=== PATIENT | female | born 1985 | race Caucasian/White ===

== ENCOUNTER 2022-07-24 15:06 | Outpatient (CLI) | payer MEDICAID, SELFPAY ==
--- OUTSIDE RECORDS SUMMARY | 2022-07-24 15:09 | XMS_ITS | Encounter Summary ---
:1985 Author Organization [employer] Address [address] [place] [address] Care Team Providers Name Role Phone Unassigned, Provider Primary Care Provider Unavailable Reason for Visit Reason Comments APPOINTMENT REQUEST to review medication refill and establish with new provider. Encounter Details Date Type Department Care Team Description 08/11/2019 Telephone [facility] Radha Kruger, APPOINTMENT REQUEST (to [facility] vault teller medication [address] [facility] refill and establish [address] with new provider. ) [place] [address] Social History Tobacco Use Types Packs/Day Years Used Date Smoking Tobacco: Never Smokeless Tobacco: Never Alcohol Use Standard Drinks/Week Comments Not Currently 0 (1 standard drink = 0.6 oz pure alcoho l) rare Alcohol Habits Answer Date Recorded How often do you have a drink containing alcohol? Not asked How many drinks containing alcohol do you have on a typical Not asked day when you are drinking? How often do you have six or more drinks on one occasion? No t asked Comment: rare 11/28/2018 Sex Assigned at Date Recorded Not on file documented as of this encounter Nursing Notes Radha Kruger RN - 08/11/2019 11:50 AM CDT Noted pt no showed for last scheduled appt with both ANASTACIO and RD. Attempted to contact Maria Alejandra at number provided, no answer. LVM requesting she reschedule to establish care with new provider now that Dr. Hauser is no longer at our clinic. Provided Maria Alejandra with returncontact information for questions and to schedule. Radha Kruger RN 11:50 AM 08/11/2019 documented in this encounter Plan of Treatment Not on filedocumented as of this encounter Visit Diagnoses Not on filedocumented in this encounter Care Teams Deaf Teacher Relationship Specialty Start Date End Date Unassigned, Provider PCP - General 08/08/00 [address] [place] [address] documented as of this encounter
--- OUTSIDE RECORDS SUMMARY | 2022-07-24 15:09 | XMS_ITS | Encounter Summary ---
:1985 Author Organization [employer] Address [address] [place] [address] Care Team Providers Name Role Phone Unassigned, Provider Primary Care Provider Unavailable Reason for Referral (Routine) - Closed Specialty Diagnoses / Procedures Referred By Contact Refer red To Contact Diagnoses Bariatric surgery status Abdominal pain, unspecified abdominal location Deisy Hauser MBBS Procedures EGD [address] [place] [address] Referral ID Status Reason Start Date Expiration Date Visits Requ ested Visits Authorized [id number] Closed 05/27/2019 08/25/2020 1 1 Reason for Visit Reason Comments Sleeve Surg Followup Encounter Details Date Type Department Care Team Description 05/27/2019 Office Visit [facility] Deisy Hauser Ba riatric surgery status (Primary Dx); [facility] HAILEE Abdominal pain, unspecified abdominal lo cation; [address] [facility] [address] Depression, major, recurrent, moderate ( HRC) [address] [place] [address] [place], [place] [phone] (Work) [phone] Social History Tobacco Use Types Packs/Day Years [...] on file documented as of this encounter Last Filed Vital Signs Vital Sign Reading Time Taken Comments Blood Pressure 113/67 05/27/2019 8:38 AM CDT Pulse 75 05/27/2019 8:38 AM CDT Temperature - - Respiratory Rate - - Oxygen Saturation - - Inhaled Oxygen Concentration - - Weight 77.4 kg (170 lb 9.6 oz) 05/27/2019 8:38 AM CDT Height 165.1 cm (5' 5) 05/27/2019 8:38 AM CDT Body Mass Index 28.39 05/27/2019 8:38 AM CDT documented in this encounter Patient Instructions Patient InstructionsDeisy Hauser MBBS - 05/27/2019 9:20 AM CDT Learning About the Low FODMAP Diet for Irritable Bowel Syndrome (IBS) What is the low-FODMAP diet? A low-FODMAP diet is a way to find out what foods give you digestion problems. You stop eating certain high-FODMAP foods for about 2 months. Then you add them back to see how your body reacts. This is called a challenge diet. A dietitian or doctor can help you follow this diet. FODMAPs are carbohydrates. They are in many types of foods. FODMAP stands for: ?? Fermentable. ?? Oligosaccharides. ?? Disaccharides. ?? Monosaccharides. ?? And polyols. If you have digestive problems, some of these foods can make your symptoms worse. When you are on this diet, you can still eat certain fruits and vegetables. You can also eat certain grains, meats, fish, and lactose-free milks. What is it used for? If you have irritable bowel syndrome (IBS), you can ease your symptoms by not eating some types of foods. Some people also use this diet for inflammatory bowel disease (IBD) or some food intolerances. High-FODMAP foods can be hard to digest. They pull more fluid into your intestines. They are also easily fermented. This can lead to bloating, belly pain, gas, and diarrhea. The low-FODMAP diet can help you figure out what foods to avoid. And it can help you find foods thatare easier to digest. This diet can help with symptoms of some digestive diseases. But it's not a cure. You will still need to manage your condition. How does it work? You will work with a doctor or dietitian when you start the diet. At first, you won't eat any high-FODMAP foods for a few weeks. Go to [email or web address].YelloYello to learn more about this diet. You'll also find links to an corey for your phone or other device. You'll find low-FODMAP cookbooks there too. After 6 to 8 weeks, you will start to try high-FODMAP foods again. You will add those foods back to your diet, one group at a time. Your doctor or dietitian will probably have you wait a few days before you add each new group of those foods. Keep a food diary. You can write down the foods you try and note how they make you feel. After a few weeks, you may have a better idea of what foods you should avoid and what foods make youfeel your best. What are the risks? There is some risk of not getting all of the vitamins and nutrients you need on the low-FODMAP diet.These include: ?? Folate. ?? Thiamin. ?? Vitamin B6. ?? Calcium. ?? Vitamin D. Your dietitian or doctor can help you find other sources of these if needed. This diet may limit your fiber intake. Try to plan your meals to include other sources of fiber. What foods are on the low-FODMAP diet? Here is a guide to foods that you can eat, plus the foods that you should avoid, when you are on thelow-FODMAP diet. Grains Okay to eat: Foods made from grains like arrowroot, buckwheat, corn, millet, and oats. You can also eat potato, quinoa, rice, sorghum, tapioca, and teff. Cereals, pasta, breads, corn tortillas and baked goods made from these grains are also okay. (These grains may be labeled gluten-free.) Avoid: Grains like wheat, barley, and rye. Avoid ingredients such as bulgur, couscous, durum, and semolina. And avoid cereals, breads, and pastas made from these grains. Avoid chickpea, lentil, and peaflour. Proteins Okay to eat: Most meat, fish, and eggs without high-FODMAP sauces. You can have small amounts of almonds or hazelnuts (10 nuts). Macadamia nuts, peanuts, pecans, pine nuts, and walnuts are also okay. You can also eat olivia and pumpkin seeds, tofu, and tempeh. Avoid: Beans, chickpeas, lentils, and soybeans. Avoid pistachio and cashew nuts. And some sausages may have high-FODMAP ingredients. Dairy Okay to eat: Lactose-free dairy milks. Rice milk and almond milk are okay. So are lactose-free yogurts, kefirs, ice creams, and sorbet from low-FODMAP fruits and sweeteners. (These are often labeled lactose-free.) You can have small amounts (2 Tbsp) of cottage, cream, or ricotta cheese. Hard cheeseslike cheddar, Shahab, Parmesan, and Swedish are okay. So are small amounts (1 oz) of aged or ripened cheeses like Brie, blue, and feta. Avoid: Milk, including cow, goat, and sheep. Avoid condensed or evaporated milk, buttermilk, custard, cream, sour cream, yogurt, and ice cream. Avoid soy milk. (Check sauces for dairy ingredients.) Vegetables Okay to eat: Bamboo shoots, alonso peppers, bok geoffrey, up to ?? cup of broccoli or cabbage (red or white), and cucumbers. Eggplant, green beans, lettuce, olives, parsnips, and potatoes are okay to eat. Soare pumpkin, rutabaga, seaweed, sprouts, Swedish chard, and spinach. You can eat scallions (green partonly) and squash (not butternut). You can eat tomatoes, turnips, watercress, yams, and zucchini. Youcan also have small amounts of artichoke hearts (from can, 1 oz), carrots, corn (?? cob), and sweet potato (?? cup). Avoid: Artichokes, asparagus, [place] sprouts, wojciech cabbage, cauliflower, and celery. And avoid garlic, leeks, mushrooms, okra, onions, scallions (white part), shallots, and peas. Fruits Okay to eat: Bananas, blueberries, cantaloupe, coconut, grapes, and honeydew. Kiwi, meek, limes, oranges, passion fruit, papaya, and pineapple are also okay. You can eat plantain, raspberries, rhubarb, star fruit, strawberries, tangelo, and tangerine. You can also have small amounts of dried banana chips (up to 10 chips), dried cranberries (1 Tbsp), and shredded coconut (up to ?? cup). Avoid: Apples, applesauce, apricots, avocados, blackberries, boysenberries, and cherries. Also avoiddates, figs, grapefruit, guava, lychee, and mangoes. Don't eat nectarines, peaches, pears, persimmon, plums, prunes, tamarillo, or watermelon. And limit most canned and dried fruits. Oils, spices, condiments, and sweeteners Okay to eat: Vegetable oils (including garlic infused), butter, ghee, lard, and margarine (no trans fat). You can have most fresh herbs like basil, chives, coriander, jia, parsley, gustabo and thyme. You can have salt, jams made from low-FODMAP fruits, mayonnaise, and mustard. Soy sauce, hot sauce(no garlic), tamari, and vinegar are also okay. Sweeteners that are okay include sugar (sucrose), powdered (confectioner's) sugar, brown sugar, glucose, and maple syrup. You can also have some artificial sweeteners like aspartame, saccharine, and stevia. Avoid: Chutneys, hummus, jellies, garlic sauces, and gravies made with onion or garlic. Avoid pickles, relish, some salad dressings and soup stocks, salsa, and tomato paste. And avoid sauces and other foods with high fructose corn syrup, honey, molasses, and agave. Avoid artificial sweeteners (isomalt, mannitol, malitol, sorbitol, and xylitol). Avoid corn syrup solids, fructose, fruit juice concentrate, and polydextrose. Other foods and drinks Okay to have: Water, soda water, tonic, soft drinks sweetened with sugar, ?? cup of low-FODMAP fruitjuice, and most teas and alcohols. You can also eat foods made with baking powder and soda, cocoa, and gelatin. Avoid: Juices from high-FODMAP fruits and vegetables. And avoid fortified anna, chamomile and fennel teas, chicory-based drinks and coffee substitutes, and bouillon cubes. Follow-up care is a soto part of your treatment and safety. Be sure to make and go to all appointments, and call your doctor if you are having problems. It's also a good idea to know your test results and keep a list of the medicines you take. Where can you learn more? 1. Go to https://[email or web address] Talents or [employer]/Machine Safety Manangementrary. 2. Enter L235 in the search box. Current as of: September 11, 2018 Content Version: 12.0 ?? 2176-2860 [employer]. Care instructions adapted under license by your healthcare professional. If you have questions about a medical condition or this instruction, always ask your healthcare professional. [employer] disclaims any warranty or liability for your use of this information. documented in this encounter Progress Notes Deisy Hauser MBBS - 05/27/2019 9:20 AM CDT Bariatric Surgery -10 months Post-Operative Follow Up DATE OF VISIT: 05/27/2019 SUBJECTIVE: This 34 y.o. year-old female presents for routine postoperative followup status post Laparoscopic Vertical Sleeve Gastrectomy. Reports concerns with abdominal pain which she describes as sensation which happens in the epigastric periumbilical within 10 minutes after eating and can persist for several hours. Patient does feel some frothing sensation in the back of her throat associated with this pain but she generally does not have much vomiting. Reports she has not seen any association with type of food. Denies any pain with drinking fluids. Does report chewing her food properly. Does feel in this pain is worse during stressful situations. Patient was evaluated at ER for abdominal pain and at thatstage patient had associated diarrhea likely viral gastroenteritis and she underwent CT scan which revealed following findings IMPRESSION: Fluid distributed throughout the entire nondistended small bowel and colon consistent with diarrhea.This represents a nonspecific enteritis. CT of the abdomen shows changes of cholecystectomy. Changes of gastric bypass surgery. CT of the pelvis shows mild dilatation of the appendix with no inflammatory changes. This is probably secondary to the fluid distributed throughout the small bowel and colon. Status post hysterectomy. Bariatric History Initial Severity: Obesity. Current Status: Obesity Date of surgery: 07/23/2018 The patient is not satisfied with weight-loss results at this Point. Patient reports she has been stable on her weight for past 2 months and feeling frustrated with stagnation. Current Exercise and Nutritional Status: The patient is eating 3 meals and 2 snacks per day. Food volume is 1 cup cup per meal. Typical eating patterns 3 meals per day with protein followed by vegatable or fruit Does report difficulty eating ground meat The patient denies any difficulty with dumping syndrome. She is uromddw26 grams of protein per day Fluid intake averages 48 to 64 oz per day. Exercise: none PMH, PSH and Family history were reviewed and updated in [facility] SOCIAL HISTORY: Social History Socioeconomic History ??? Marital status: Legally Spouse name: Not on file ??? Number of children: Not on file ??? Years of education: Not on file ??? Highest education level: Not on file Occupational History ??? Not on file Social Needs ??? Financial resource strain: Not on file ??? Food insecurity: Worry: Not on file Inability: Not on file ??? Transportation needs: Medical: Not on file Non-medical: Not on file Tobacco Use ??? Smoking status: Never Smoker ??? Smokeless tobacco: Never Used Substance and Sexual Activity ??? Alcohol use: Not Currently Comment: rare ??? Drug use: Not Currently ??? Sexual activity: Not on file Lifestyle ??? Physical activity: Days per week: Not on file Minutes per session: Not on file ??? Stress: Not on file Relationships ??? Social connections: Talks on phone: Not on file Gets together: Not on file Attends taoism service: Not on file Active member of club or organization: Not on file Attends meetings of clubs or organizations: Not on file Relationship status: Not on file ??? Intimate partner violence: Fear of current or ex partner: Not on file Emotionally abused: Not on file Physically abused: Not on file Forced sexual activity: Not on file Other Topics Concern ??? Not on file Social History Narrative ??? Not on file Patient Employment Employer: Address: City: State: Zip: Phone: Occupation: Employee?: No Family has not been supportive. Reports significant stress, patient reports she has been taking careof 4 children between the age of 14 and 2 years of age and currently their father is with patient but soon they are getting and undergoing divorce proceedings. Patient reports significant difficulty with falling and staying asleep. Does report ongoing depression for which she has been working with her primary care physician and reports that various medications have been tried without much luck and currently she is on Paxil which was an effective medication during her younger years, patient has been offered a genetic testing but due to financial reasons patient has not been able to get the test done. Patient is interested in counseling but has not been able to schedule a visit with anyone around [facility]. Does report occasional part of harming herself but denies any intent or plan. Denies any access to firearms. Does not feel at risk. Patient does report she has been talking to her mother very regularlyand feels she has good support. Does report feeling safe in her current surroundings. The patient is not working, is not having difficulty on the job. REVIEW OF SYSTEMS: She reports pain with eating and frothing She denies taste aversion, sensation of food sticking, heartburn, constipation and diarrhea OBJECTIVE: BP 113/67 (BP Location: Left Arm, BP Cuff Size: Regular) Pulse 75 Ht 5' 5 (1.651 m) Wt 170 lb9.6 oz (77.4 kg) BMI 28.39 kg/m?? BMI: Estimated body mass index is 28.39 kg/m?? as calculated from the following: Height as of this encounter: 5' 5 (1.651 m). Weight as of this encounter: 170 lb 9.6 oz (77.4 kg). Bariatric Weight History and Calculations Weight History Highest Adult Weight: 299 lb Starting Weight: 215 lb 6.4 oz Current Weight: 170 lb 9.6 oz Height (in): 64 Weight Calculations Excess Weight: 87 lb 6.4 oz Current Weight Loss: 44 lb 12.8 oz Goal Weight: 128 lb Starting BMI: 37.00846620 Percent Exess Weight Loss: 51.3658977672136 Current BMI: 29.94147036 Percent Totoal Body Weight Loss: 20.2129116434605 Last visit on 04/09/2019 was 174.7 pounds. GENERAL: Patient appears no apparent distress RESPIRATORY: clear to auscultation, no wheezes, rales or rhonchi, symmetric air entry CARDIOVASCULAR: CVS exam BP noted to be well controlled today in office, S1, S2 normal, no gallop, no murmur, chest clear, no JVD, no HSM, no edema ABDOMEN: tenderness noted Epigastric and periumbilical region no rebound tenderness noted bowel sounds normal EXTREMITIES: peripheral pulses normal, no pedal edema, no clubbing or cyanosis SKIN: Skin color, texture, turgor normal. No rashes or lesions NEUROPSYCH: depressed affect LABORATORY STUDIES: None are available at the time of appointment. ASSESSMENT: Patient is s/p Laparoscopic Vertical Sleeve Gastrectomy for Obesity. Patient is currently Overweight ICD-10-CM 1. Bariatric surgery status Z98.84 EGD 2. Abdominal pain, unspecified abdominal location R10.9 EGD busPIRone (BUSPAR) 5 MG tablet 3. Depression, major, recurrent, moderate (HRC) F33.1 PLAN: 1. Labs reviewed today; mild iron deficiency 2. Dietary recommendations: Discussed at length appropriate diet after Bariatric surgery, continuing to emphasize 3 meals per day with protein at every meal, followed by a good fruit and/or vegetable choice. Discussed the need to continue to watch carbohydrate intake especially avoiding high glycemic index carbohydrates. Patient is, however, encouraged to place more emphasis on getting adequate protein throughout the day and to avoid snacking in order to promote further weight loss. 3. The patient is advised to increase exercise to a goal of at least 30 minutes 5 times a week. 4. The patient is advised to continue taking supplements. 5. Return to the clinic in 2 months, sooner p.r.n. problems or concerns. Patient is especially encouraged to return to the clinic ifShe is failing to lose further weight. 6. Dietitian appointment p.r.n. 7. Reviewed with patient various etiologies of abdominal pain cannot rule out irritable bowel syndrome, gastritis/esophagitis. At this stage patient was advised to schedule for EGD. We will also try BuSpar 5 mg twice daily for 1 week and if patient is tolerating well patient was advised to increase itto 10 mg twice daily along with trying FODMAPs diet. Information provided. 8. Also discussed with patient scheduling with counselor, patient was offered a [employer] services which she declined as she lives in [facility] and would like to schedule a visit in the nearby area. Patient will contact her PCP for further recommendations. Patient does have crisis number availablein case of emergency. Total Time: 35 min; Consultation Time: 20 min. Post surgical lifestyle interventions, physiological changes were discussed as above. HAILEE Hastings documented in this encounter Plan of Treatment Scheduled Orders Name Type Priority Associated Diagnoses Order S chedule EGD GI Routine Bariatric surger y status 1 Occurrences starting 05/27/2019 Abdominal pain, unspecified abdominal location documented as of this encounter Visit Diagnoses Diagnosis Bariatric surgery status - Primary Abdominal pain, unspecified abdominal lo cation Depression, major, recurrent, moderate ( HRC) Major depressive disorder, recurrent epi sode, moderate documented in this encounter Care Teams Back Tacker Relationship Specialty Start Date End Date Unassigned, Provider PCP - General 08/08/[address] [place] [id number] documented as of this encounter
--- OUTSIDE RECORDS SUMMARY | 2022-07-24 15:09 | XMS_ITS | Clinical Summary ---
:1985 Author Organization [employer] (now [employer]) Address [address] [place] [address] Care Team Providers Name Role Phone Unassigned, Provider Primary Care Provider Unavailable Source Comments You are receiving this document as you are listed as the primary care provider,follow-up provider, or the patient has been referred to you for consultation.This is in compliance with the Medicare and Medicaid EHR Incentive Program,which states Providers who transition their patient to another setting of careor provider of care or refers their patient to another provider of care shouldprovide summarycare record for each transition of care or referral. [employer] (now [facility]) Allergies No known active allergies Medications Medication Sig Dispensed Refills Start Date End Date Status multivitamin with Take 1 Tablet by 0 Active minerals mouth daily. (CERTAVITE,MYADEC) tablet vitamin B-12 (AKA: Take 1,000 mcg by 0 Active CYANOCOBALAMIN) 1000 mouth once a MCG tablet week. Sublingual tablet weekly calcium Take 2 Tablets by 0 Ac tive citrate-vitamin D mouth two times a (CALCITRATE PLUS D) day. 315-200 MG-UNIT tablet cholecalciferol Take 2,000 Units 0 Active (VITAMIND3) 2000 units by mouth daily. tablet venlafaxine (EFFEXOR) Take 75 mg by 0 Active 75 MG tablet mouth two times a day. Biotin 1000 MCG CHEW Take 1 Tablet by 0 Active mouth daily. ferrous sulfate 325 Take 1 Tablet by 0 01/10/2019 Active (65 Fe) MG tablet mouth daily with breakfast. PARoxetine (PAXIL) 40 Take 40 mg by 0 Active MG tablet mouth daily. omeprazole (PRILOSEC) Take 1 Capsule by 90 Capsule 0 9 Active 20 MG capsule mouth daily for 90 days. Take 1 hour before a meal. Additional Information Patient not taking. Reported on 05/27/2019 busPIRone (BUSPAR) 5 MG 1 tab twice daily 90 Tablet 0 05/27/20 19 Active tabletIndications: Abdominal for 7 days and then pain, unspecified abdominal 2 tabs twice daily location Family History Medical History Relation Name Comments Obesity Mother Relation Name Status Comments Mother Alive Social History Tobacco Use Types Packs/Day Years [...] Assigned at Date Recorded Not on file Last Filed Vital Signs Vital Sign Reading Time Taken Comments Blood Pressure 113/67 05/27/2019 8:38 AM CDT Pulse 75 05/27/2019 8:38 AM CDT Temperature 28.9 ??C (84 ??F) 04/09/2019 10:53 AM CDT Respiratory Rate - - Oxygen Saturation - - Inhaled Oxygen Concentration - - Weight 77.4 kg (170 lb 9.6 oz) 05/27/2019 8:38 AM CDT Height 165.1 cm (5' 5) 05/27/2019 8:38 AM CDT Body Mass Index 28.39 05/27/2019 8:38 AM CDT Plan of Treatment Health Maintenance Due Date Last Done Comments Cervical Cancer Screening 1985 Due Hep C Screening (Preventive 1985 Services) HepB (1) 1985 COVID-19 Vaccine (#1) 1985 HIV Screening (Preventive 2002 Services) Adult Preventive Visit 2004 Influenza (#1) 2022 07/17/2017, 07/17/2017, 08/24/2016, Additional history exists DTaP/Tdap/Td (5 - Tdap) 02/10/2028 02/09/2018, 02/26/2013, 01/17/2009, Additional history exists Zoster/Shingles (1 of 2) 2036 HPV Vaccine Aged Out No longer eligib le based on patient 's age to complete this topic HepA Aged Out No longer eligib le based on patient 's age to complete this topic Hib Aged Out No longer eligib le based on patient 's age to complete this topic IPV (Polio) Aged Out No longer eligib le based on patient 's age to complete this topic MCV4 Aged Out No longer eligib le based on patient 's age to complete this topic Pneumococcal Aged Out No longer eligib le based on patient 's age to complete this topic Care Teams Automatic Riveting Machine Operator Relationship Specialty Start Date End Date Unassigned, Provider PCP - General 08/08/[address] [place] [id number]
--- OUTSIDE RECORDS SUMMARY | 2022-07-24 15:10 | XMS_ITS | Encounter Summary ---
:1985 Author Organization [employer] Address [address] [place] [address] Care Team Providers Name Role Phone Unassigned, Provider Primary Care Provider Unavailable Reason for Visit Reason Comments Nutrition Counseling Encounter Details Date Type Department Care Team Description 04/09/2019 Nutrition [facility] Bariat[facility] Surgery Roberta Sanchez, Morbid obesity with [facility] RDN, DAMON BMI of 40.0-44.9, [address] [facility]. [address] [facility] ([facility]) [address] [place] [id number] (Wo rk) Social History Tobacco Use Types Packs/Day Years [...] on file documented as of this encounter Progress Notes Roberta Sanchez, RD - 04/09/2019 9:30 AM CDT [facility] [address] [facility] (1BO[facility]) [facility] Department Medical Nutrition Therapy: Bariatric Post-Op ASSESSMENT: Referring Provider: Evelia Temple PA-C BMI: Estimated body mass index is 34.04 kg/m?? as calculated from the following: Height as of 01/22/19: 5' 4 (162.6 cm). Weight as of 01/22/19: 198 lb 4.8 oz (75935 g). Follow-up after sleeve gastrectomy surgery. [place] Date of Surgery: July 23, 2018. 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 Reports issues with food tolerances - taste, etc. Reportspain with eating, can lead to frothing- carbs, beef, membranes and other food depending. Pt does vomit on occasion related to symptoms. Reports 'can't do' anymore with protein shakes - taste. Pt also reports high stress, low sleep and low support - lives with 8 other at home. Financial concerns as well - does receive assistance. Significant hair loss. Current dietary habits: Grazes: String cheese, beef jerky, little meat, no fruit/veggies Protein needs estimated at 65 grams daily. Intake does not meet estimated needs for protein. Vitamin/Minerals: Patient is taking the following vitamin and mineral supplements: multivitamin and mineral daily. B12 oral daily 325 mg ferrous sulfate daily. 2000 IU vitamin D daily. 1000 mg calcium daily. Hair skin nails. Exercise: Patient is not engaging in physical activity. DIAGNOSIS: Nutrition Diagnosis: Inadequate Protein intake (NI 5.7.1) related to food intolerances as evidenced by current intake. We will continue to treat the following obesity-associated medical conditions and conditions exacerbated by or contributing to weight gain by aggressive management of weight INTERVENTION: Medical Nutrition Therapy provided on post bariatric surgery nutrition and activity behaviors. MONITORING AND EVALUATION: Patient goals: Include fruits and vegetables with meals -soft, moist as tolerated - start with bites. Increase variety of protein sources - reviewed as able. Add protein supplement: Use milk daily - 2 cups. Discussed with PA-c regarding symptoms, await plans/results as current nutrition impacted by symptoms. Also high stress, decreased moood etc. . Consider therapist Follow up with dietitian in ~2 month(s). Time: 30 minutes Thank you for this referral documented in this encounter Plan of Treatment Not on filedocumented as of this encounter Visit Diagnoses Diagnosis Morbid obesity with BMI of 40.0-44.9, ad ult (HRC) documented in this encounter Care Teams Special Education Science Teacher Relationship Specialty Start Date End Date Unassigned, Provider PCP - General 08/08/[address] [place] [id number] documented as of this encounter
--- OUTSIDE RECORDS SUMMARY | 2022-07-24 15:10 | XMS_ITS | Encounter Summary ---
:1985 Author Organization [facility] Address [address] [place] [address] Care Team Providers Name Role Phone Annemarie Montiel M.D. Primary Care Provider Reason for Referral Outpatient (Routine) - Closed Specialty Diagnoses / Procedures Referred By Contact Refer red To Contact Diagnoses Migraine Headache Marina Winter M.D., [facility] Procedures Botox for Chronic Migraine M.P.[facility] [address] [phone] Referral ID Status Reason Start Date Expiration Date Visits Requ ested Visits Authorized [id number] Closed 02/02/2021 02/02/2022 1 1 Outpatient (Routine) - Closed Specialty Diagnoses / Procedures Referred By Contact Refer red To Contact Diagnoses Migraine Headache Marina Winter M.D., [facility] Procedures Botox for chronic migraine [facility] [address] [phone] Referral ID Status Reason Start Date Expiration Date Visits Requ ested Visits Authorized [id number] Closed 02/02/2021 02/02/2022 1 1 Reason for Visit Reason Comments Botulinum Toxin Injection Outpatient (Routine) - Closed Specialty Diagnoses / Procedures Referred By Contact Refer red To Contact Diagnoses Migraine Headache Marina Winter M.D., [facility] Procedures Botox for Chronic Migraine [facility] [address] [place] [address] Referral ID Status Reason Start Date Expiration Date Visits Requ ested Visits Authorized [id number] Closed 11/04/2020 11/04/2021 1 1 Encounter Details Date Type Department Care Team Description 02/02/2021 Procedure visit Department of Neurology Marina Winter, Migraine Headache in [facility] jeevan Jaramillo, M.P.H. [address] [facility] [address] [place] [phone] Social History Tobacco Use Types Packs/Day Years Used Date Smoking Tobacco: Never Smokeless Tobacco: Never Alcohol Use Standard Drinks/Week Comments No 0 (1 standard drink = 0.6 oz pure alcoho l) Alcohol Habits Answer Date Recorded How often do you have a drink containing alcohol? Monthly or less 07/04/2019 How many drinks containing alcohol do you have on a 3 or 4 07/04/2019 typical day when you are drinking? How often do you have six or more drinks on one Never 03/29/2020 occasion? Comment: Not asked Social Isolation Answer Date Recorded In a typical week, how many times do you talk on Once a week 07/04/2019 the phone with family, friends, or neighbors? How often do you get together with friends or Never 03/29/2020 relatives? How often do you attend voodoo or latter-day Never 07/04/2019 services? Do you belong to any clubs or organizations such as No 07/04/2019 voodoo groups, unions, fraternal or athletic groups, or school groups? How often do you attend meetings of the clubs or Never 07/04/2019 organizations you belong to? Are you now , , , , Living wi th partner 03/29/2020 never or living with a partner? Physical Activity Answer Date Recorded On average, how many days per week do you engage in moderate to 0 days 07/04/2019 strenuous exercise (like walking fast, running, jogging, dancing, swimming, biking, or other activities that cause a light or heavy sweat)? On average, how many minutes do you engage in exercise at th is 0 min 07/04/2019 level? Stress Answer Date Recorded Do you feel stress - tense, restless, nervous, or anxious, o r Very much 07/04/2019 unable to sleep at night because your mind is troubled all the time - these days? Financial Resource Strain Answer Date Recorded How hard is it for you to pay for the very basics like food, Very hard 07/04/2019 housing, medical care, and heating? Intimate Partner Violence Answer Date Recorded Within the last year, have you been afraid of your partner o r No 03/29/2020 ex-partner? Within the last year, have you been humiliated or emotionall y Yes 07/04/2019 abused in other ways by your partner or ex-partner? Within the last year, have you been kicked, hit, slapped, or No 07/04/2019 otherwise physically hurt by your partner or ex-partner? Within the last year, have you been raped or forced to have any No 07/04/2019 kind of sexual activity by your partner or ex-partner? Food Insecurity Answer Date Recorded Within the past 12 months, you worried that your food Someti mes true 03/29/2020 would run out before you got money to buy more. Within the past 12 months, the food you bought just Never tr ue 03/29/2020 didn't last and you didn't have money to get more. Transportation Needs Answer Date Recorded In the past 12 months, has lack of transportation kept you f rom No 07/04/2019 medical appointments or from getting medications? In the past 12 months, has lack of transportation kept you f rom No 07/04/2019 meetings, work, or getting things needed for daily living? Education Answer Date Recorded What is the highest level of school you have completed or 12 th grade 07/04/2019 the highest degree you have received? 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 - 02/02/2021 2:00 PM CDTAssociated Order(s): Botox for chronic migraine Post-Procedure Diagnose(s): Migraine Headache Botox for chronic migraine Date/Time: 02/02/2021 2:00 PM Performed by: Marina Winter M.D., M.P.[facility]. Authorized by: Marina Winter M.D., M.P.H. PROCEDURE DETAILS Pre-procedure pain score: 0/10 Injection of: 100 Units onabotulinumtoxinA 100 unit 50 Units onabotulinumtoxinA 50 unit Needle gauge: 30 Needle length: 0.5 in Injection site details Artistic Director / Procerus muscle(s): 5 units into the left continuous miner operator helper muscle, 5 units into the right continuous miner operator helper muscle and 5 units into the procerus muscle (15 units total). Superior Frontalis muscle(s): 5 units into the left superior frontalis muscle and 5 units into the right superior frontalis muscle (4 injection sites per muscle) (10 units total). Temporalis muscle(s): 12.5 units into the left temporalis muscle and 12.5 units into the right temporalis muscle (2 injection sites per muscle) (25 units total). Splenius Capitis muscle(s): 12.5 units into the left splenius capitis muscle and 12.5 units into theright splenius capitis muscle (2 injection sites per muscle) (25 units total). Occipitalis muscle(s): 12.5 units into the left occipitalis muscle and 12.5 units into the right occipitalis muscle (2 injection sites per muscle) (25 units total). Trapezius muscle(s): 25 units into the left trapezius muscle and 25 units into the right trapezius muscle (3 injection sites per muscle) (50 units total). Total units wasted: 0 Total units injected: 150 CONSENT Consent obtained: written UNIVERSAL PROTOCOL All relevant documentation and testing were reviewed and available. All required blood products, implants, devices and or special equipment were made available as applicable. Pre-procedure verificationwas conducted and the correct site was marked if required. A fire risk assessment was done as applicable. The procedural time-out was conducted prior to performing the procedure and confirmed in a procedural pause. PRE-PROCEDURE DETAILS Reason for injections: chronic migraine Appropriate hand hygiene, gown, cap, mask, protective eyewear, sterile gloves, skin preparation, sterile drape, and strict aseptic technique were utilized as applicable for the procedure: yes Site preparation: alcohol Clinical history: Patient was made aware that they may be responsible for any and all costs associated with injection of Botulinum Toxin Type A that is not covered by a third republican. Prior preventative medication trials: amitriptyline, propranolol and topiramate Headache frequency Headache days per month: 3 days Severe headache days per month: 1 days POST-PROCEDURE DETAILS: Procedure completed successfully: yes Complications: no apparent complications documented in this encounter Plan of Treatment Upcoming Encounters Date Type Specialty Care Team Description 08/17/2022 Procedure visit Neurology Marina Winter M.D., M[facility] [address] [phone] (Wo rk) Scheduled Orders Name Type Priority Associated Diagnoses Order S chedule Botox for Chronic Procedures Routine Migraine Headache Expec heaven: 05/04/2021, Migraine Expires: 2021 Scheduled Procedures Name Priority Associated Diagnoses Date/Time LIFT THIGH Excessive And Redundant Skin And Subcutaneous Tissue documented as of this encounter Procedures Procedure Name Priority Date/Time Associated Comments Diagnosis [place] CHEMODENERV FACIAL Routine 02/02/2021 2:00 PM Migraine Head ache Results for this TRIGEM NIDHI CDT procedure are i n the results section. documented in this encounter Results [place] CHEMODENERV FACIAL TRIGEM NIDHI (02/02/2021 2:00 PM CDT) Narrative MMODAL - 02/02/2021 2:00 PM CDT Marina Winter M.D., M.P.[facility] ? 02/02/2021 ??2:28 PM Botox for chronic migraine Date/Time: 02/02/2021 2:00 PM Performed by: Marina Winter M.D., M.P .H. Authorized by: Marina Winter M.D., M. [facility] PROCEDURE DETAILS ?? Pre-procedure pain score: 0/10 Injection of: 100 Units onabotulinumtoxi nA 100 unit 50 Units onabotulinumtoxinA 50 unit Needle gauge: 30 Needle length: 0.5 in Injection site details Artistic Director / Procerus muscle(s): 5 units into the left continuous miner operator helper muscle, 5 units into the right continuous miner operator helper muscle and 5 units into the procerus muscle ??(15 units total). Superior Frontalis muscle(s): 5 units in to the left superior frontalis muscle and 5 units into the right superi or frontalis muscle ?? (4 injection sites per muscle) (10 units total). Temporalis muscle(s): 12.5 units into th e left temporalis muscle and 12.5 units into the right temporalis muscle ? ? (2 injection sites per muscle) ?? (25 units total). Splenius Capitis muscle(s): 12.5 units i nto the left splenius capitis muscle and 12.5 units into the right spl enius capitis muscle ?? (2 injection sites per muscle) ??(25 units total). Occipitalis muscle(s): 12.5 units into t he left occipitalis muscle and 12.5 units into the right occipitalis mu scle ??(2 injection sites per muscle) ??(25 units total). Trapezius muscle(s): 25 units into the l eft trapezius muscle and 25 units into the right trapezius muscle ??(3 inj ection sites per muscle) ??(50 units total). Total units wasted: 0 Total units injected: 150 CONSENT Consent obtained: written UNIVERSAL PROTOCOL All relevant documentation and testing w ere reviewed and available. All required blood products, implants, devic es and or special equipment were made available as applicable. Pre-proced ure verification was conducted and the correct site was marked if required. A fire risk assessment was done as applicable. The procedural time-out w as conducted prior to performing the procedure and confirmed in a procedu ral pause. PRE-PROCEDURE DETAILS ?? Reason for injections: chronic migraine Appropriate hand hygiene, gown, cap, mas k, protective eyewear, sterile gloves, skin preparation, sterile drape, and strict aseptic technique were utilized as applicable for the procedure : yes Site preparation: alcohol Clinical history: Patient was made aware that they may be responsible for any and all costs associated with inject ion of Botulinum Toxin Type A that is not covered by a third republican. ?? Prior preventative medication trials: am itriptyline, propranolol and topiramate Headache frequency Headache days per month: 3 days Severe headache days per month: 1 days POST-PROCEDURE DETAILS: Procedure completed successfully: yes Complications: no apparent complications Marina Winter M.D., M.P.[facility]. NEUROLOGY ORDERABLES Performing Organization Address City/State/ZIP Code Phon e Number MMODAL MMODAL NA documented in this encounter Visit Diagnoses Diagnosis Migraine Headache documented in this encounter Administered Medications Inactive Administered Medications - up to 3 most recent administrations Medication Order MAR Action Action Date Dose Rate Site onabotulinumtoxinA injection 100 Given 02/02/2021 2:00 PM 100 Un its Units (BOTOX) CDT 100 Units, injection, One-Time Injection, Starting on Sun02/02/21 at 1400, For 1 dose onabotulinumtoxinA injection 50 Units Given 02/02/2021 2:00 PM C DT 50 Units (BOTOX COSMETIC) 50 Units, injection, One-Time Injection, Starting on Sun02/02/21 at 1400, For 1 dose documented in this encounter Additional Health Concerns Assessment Noted Time PHQ-9 Depression Total Score: 12 06/10/2020 1:20 PM CD T documented as of this encounter Care Teams Tail Board Man Relationship Specialty Start Date End Date Annemarie Montiel M.D. PCP - General 04/19/172[address] [phone] documented as of this encounter
--- OUTSIDE RECORDS SUMMARY | 2022-07-24 15:10 | XMS_ITS | Encounter Summary ---
:1985 Author Organization [employer] Address [address] [place] [address] Care Team Providers Name Role Phone Unavailable Primary Care Provider Unavailable Reason for Visit Reason Comments VOMITING, BLOOD Encounter Details Date Type Department Care Team Description 06/05/2000 Telephone Careline Altagracia Sands RN VOMITING, BLOOD [address] [facility] - [place], [place] [address] [address] [phone] [place] [address] Social History Tobacco Use Types Packs/Day Years Used Date Smoking Tobacco: Never Assessed Sex Assigned at Date Recorded Not on file documented as of this encounter Nursing Notes 06/05/2000 11:59 PM CDT CALL RECEIVED. Contact: [phone] Child vomited up a cup of bright red blood with clots at 3pm today. She was taken to the ER at [facility]. They gave her Zantac and Tyl. Was told to bring her back if she vomits blood again. Chi ld ishaving abd. pain. Color is flushed. Temp 99.7 at the hospital. Mother is very upset about being sent home from the ER without any answers to the hematemesis. Mother wants to bring child to [facility] now. She is asking about the coverage. Advised mother [facility] is a hospital-the coverage will be according to her policy. Toldher we could not give her the exact coverage of her policy. Mother will be bringing child to [facility]. - Altagracia Sands Started and completed on SunJun 05, 2000 8:58 PM documented in this encounter Plan of Treatment Not on filedocumented as of this encounter Visit Diagnoses Not on filedocumented in this encounter
--- OUTSIDE RECORDS SUMMARY | 2022-07-24 15:10 | XMS_ITS | Encounter Summary ---
:1985 Author Organization [facility] Address [address] [place] [address] Care Team Providers Name Role Phone Annemarie Montiel M.D. Primary Care Provider [phone] Encounter Details Date Type Department Care Team Description 04/11/2022 Ancillary Procedure Department of Plastic and Reconstructive Surgery Social History Tobacco Use Types Packs/Day Years [...] 03/29/2020 relatives? How often do you attend anabaptist or religion Never 07/04/2019 services? 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 [address] [phone] (Wo rk) Scheduled Procedures Name Priority Associated Diagnoses Date/Time LIFT THIGH Excessive And Redundant Skin And Subcutaneous Tissue documented as of this encounter Procedures Procedure Name Priority Date/Time Associated Diagnosis Comme nts PLASTIC AND RECON Routine 04/11/2022 12:00 AM Res ults for this SURGERY IMAGE EXAM CDT procedure are in the results section. documented in this encounter Results Arms Brachioplasty-Plastic And Recon Surgery Image Exam (04/11/2022 12:00 AM CDT) Specimen (Source) Anatomical Location Collection Method / Collectio n Time Received Time / Laterality Volume Narrative IIMS - 04/19/2022 1:44 PM CDT This order has been created and auto-finalized to support the import of images acquired without order. The clini lori documentation to support these images can be found on the encounter nate t produced images. Provider Not In System IMG NON RAD IMAGING PROCEDUR ES Performing Organization Address City/State/ZIP Code Phon e Number IIMS IIMS NA documented in this encounter Visit Diagnoses Not on filedocumented in this encounter Additional Health Concerns Assessment Noted Time PHQ-9 Depression Total Score: 12 06/10/2020 1:20 PM CD T documented as of this encounter Care Teams Boiler Shop Supervisor Relationship Specialty Start Date End Date Annemarie Montiel M.D. PCP - General 04/19/[address], [place] [address] documented as of this encounter
--- OUTSIDE RECORDS SUMMARY | 2022-07-24 15:10 | XMS_ITS | Encounter Summary ---
:1985 Author Organization [facility] Address [address] [place] [address] Care Team Providers Name Role Phone Annemarie Montiel M.D. Primary Care Provider [phone] Reason for Referral Specialty Diagnoses / Procedures Referred By Contact Refer red To Contact Annemarie Montiel M.D. [facility] [address], [place] [address] Referral ID Status Reason Start Date Expiration Date Visits Requ ested Visits Authorized ENGINEER Encounter Details Date Type Department Care Team Description 10/09/2021 Orders Only [facility] PCP [facility] Daniel Montiel M.D. [address], [place] [phone] (Wo rk) Social History Tobacco Use Types [...] 03/29/2020 relatives? How often do you attend mandaeism or methodist Never 07/04/2019 services? Do you belong to any clubs or organizations such as No 07/04/2019 mandaeism groups, unions, fraternal or athletic groups, or school groups? How often do you attend meetings of the clubs or Never 07/04/2019 organizations you belong to? Are you now , , , , Living wi partner 03/29/2020 never or living with a partner? Physical Activity Answer Date Recorded On average, how many days per week do you engage in moderate to 0 days 07/04/2019 strenuous exercise (like walking fast, running, jogging, dancing, swimming, biking, or other activities that cause a light or heavy sweat)? On average, how many minutes do you engage in exercise at is 0 min 07/04/2019 level? 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 [address], [place] [phone] (Wo rk) Scheduled Procedures Name Priority Associated Diagnoses Date/Time LIFT THIGH Excessive And Redundant Skin And Subcutaneous Tissue Scheduled Referrals Name Type Priority Associated Order Schedule Diagnoses Covid immunization Outpatient Referral Routine Ex pected: office visit Booster 021 (Approximate), Expires: 10/09/2022 documented as of this encounter Visit Diagnoses Not on filedocumented in this encounter Additional Health Concerns Assessment Noted Time PHQ-9 Depression Total Score: 06/10/2020 1:20 PM CD T documented as of this encounter Care Teams Retread Technician Relationship Specialty Start Date End Date Annemarie Montiel M.D. PCP - General 04/19/[address] [address] documented as of this encounter
--- OUTSIDE RECORDS SUMMARY | 2022-07-24 15:10 | XMS_ITS | Encounter Summary ---
:1985 Author Organization [facility] Address [address] [place] [address] Care Team Providers Name Role Phone Unassigned, Provider Primary Care Provider Unavailable Reason for Visit Reason Comments Sleeve Surg Followup Encounter Details Date Type Department Care Team Description 11/28/2018 Office Visit [facility], Evelia Hypert ension, unspecified type (Primary Dx); Surgery & Weight R, PA-C Status post bariatric surgery; Center [address] [facility] Intestinal malabsorption, un specified type; [address] [facility]. [facility] [address] Personal history of endocrine disorder; [address] [place], [place] Class 2 obesity with body ma ss index (BMI) of 36.0 to 36.9 in adult, unspecified obesity type, unspecified whether [place] [id number] [phone] Social History Tobacco Use Types Packs/Day Years Used Date Smoking Tobacco: Never Smokeless Tobacco: Never Alcohol Use Standard Drinks/Week Comments Yes 0 (1 standard drink = 0.6 oz [...] Sign Reading Time Taken Comments Blood Pressure 124/77 11/28/2018 10:20 AM MANUFACTURING ASSOCIATE Pulse 71 11/28/2018 10:20 AM MANUFACTURING ASSOCIATE Temperature - - Respiratory Rate - - Oxygen Saturation - - Inhaled Oxygen Concentration - - Weight 97.7 kg (215 lb 6.4 oz) 11/28/2018 10:20 AM MANUFACTURING ASSOCIATE Height 162.6 cm (5' 4) 11/28/2018 10:20 AM MANUFACTURING ASSOCIATE Body Mass Index 36.97 11/28/2018 10:20 AM MANUFACTURING ASSOCIATE documented in this encounter Patient Instructions Patient Evelia Beltran PA-C - 11/28/2018 10:00 AM MANUFACTURING ASSOCIATE Congratulations on your many successes and keep up the hard work! Lab orders were placed today. Please have your blood drawn within the next 2 weeks. These labs will check your nutritional status, vitamin and protein levels. You will have to fast for 12 hours (water only) and avoid taking any vitamins or minerals for 24 hours. Please refer to your lab instruction located further down on this form. Continue taking your supplements as instructed. If any changes need to be made as a result of you lab results, we will let you know. If you have need a pain reliever, you may take a couple of Tylenol. Reminder not to take antiinflammatory medications such as motrin, ibuprofen, indocin, naprosyn, naproxen, or large doses of aspirin, as these can cause ulcers or bleeding in your stomach. You may notice weight loss begins to slow at this point. You may find old food habits starting to find their way back in to your daily routine. Please be aware and conscientious about continuing to make healthy and appropriate choices. Just because you can tolerate something doesn't mean it's a good choice. Remember, NO LIQUIDS 30 MINUTES BEFORE MEALS, DURING MEALS OR FOR 30 MINUTES AFTER MEALS. Thisis a life long habit to maintain. Review your 3-ring binder often. Support group: Our support group meets the and Sunday of every month from 5:30 to 6:30 pm in the lobby of our clinic. This is a support group for those who are considering or have undergone bariatric surgery. The groupexists to encourage the well-being of the whole person - body, mind and spirit. This group is a place of safety and support, where no one is judged, and each person is warmly welcomed. Please join us! Exercise: What: A group exercise program for patients who are in the weight management program and would like to start or progress an exercise regimen. When: Tuesdays and 5:45-6:30 PM Where: [facility] ground floor of the [facility], [facility]. How: Come to any class (First class is free!), and if you like it purchase a 16 class voucher and then come when you can! By signing up you are NOT committed to class, simply acknowledging interest. Class is limited to 6 participants Cost: $150 for a 16 session voucher. -For more information please contact Munira at [phone] or [email or web address] Please join us! -Check us out on Facebook and Twitter [email or web address] Lab Instructions (to be put in AVS) Please follow the following instructions prior to having your labs drawn: 1. No vitamins or supplements for 24 hours prior to the test 2. No alcohol for 24 hours prior to the test 3. No food or drink (other than water or plain, black coffee) for 12 hours prior to the test. You may call [phone] to schedule a lab appointment at the [facility] lab nearest you. Scheduled appointments are preferred; however, walk-ins are also accepted. The [place] location is open Saturdays. Exercise With Children: [employer]s Yoga - http://[email or web address]/category/watch/ Fit Factor Kids exercise Action Songs for Children - [email or web address] [email or web address]/playlist?[email or web address] Leah - [email or web address]/style/kids-[email or web address] FACTURING ASSOCIATE documented in this encounter Progress Notes Evelia Temple PA-C - 11/28/2018 10:00 AM CST Bariatric Surgery Post-Operative Follow Up DATE OF VISIT: 12/02/2018 SUBJECTIVE: This 33 y.o. year-old female with chronic medical problems including depression, anxiety presents for routine postoperative followup status post Laparoscopic Vertical Sleeve. Patient presents to the [facility] bariatric clinic to establish care after a vertical sleeve gastrectomy (using a 38 Icelandic Bougie) and hiatal hernia repair at [facility] in [facility] by Dr. Noelle Akbar on 07/23/18. Reviewed records provided by the patient. Patient's pre-operative weight was 294 lbs, BMI 50.4, post-op low weight is 215 lbs. Patient did have a CT scan of the abdomen about 2 weeks post-op due to abdominal pain and a absess vs seroma was seen to the abdominal wall, no evidence of a gastric sleeve leak. Patient states she moved back to [place] from [place] about 3 weeks after bariatric surgery. She states she has not had any post-operative follow up and she feels lost in terms of what she can eat. Patient notes she tries to focus on protein at meals, but states she does not eat enough protein. Patient would like menu ideas. Patient does not report any significantpost-op difficulties. 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 Patient is taking two chewable multivitamins, vitamin B12 and potassium. She is not taking calcium or vitamin D. Patient notes she had esophagitis seen on EGD around time of surgery, but she denied anysymptoms of heartburn. She states she took a PPI for one month after surgery, but no longer takes a PPI or any medication for heartburn or reflux. Bariatric Weight Tracking Weight History Highest Adult Weight: 299 lb Starting Weight: 215 lb 6.4 oz Height (in): 64 Weight Calculations Excess Weight: 87 lb 6.4 oz Goal Weight: 128 lb Starting BMI: [phone] Date of surgery 07/23/2018. The patient is eating 3 meals and 1 snacks per day. Food volume is 1/2 cup per meal. Does not tolerate hamburger, high carbohydrate foods Focuses on eating protein at most meals: Yes - patient does not think she eats enough protein Fluid intake averages 48-64 oz oz per day. Patient is not exercising She reports taking MVI and B12 SL weekly. She is not taking Vitamin D and Calcium supplements as prescribed. Patient denies alcohol use, carbonated beverages, and tobacco use. REVIEW OF SYSTEMS: Patient is experiencing the following symptoms/problems: Eating Until Feeling Overfull Mood Changes Pertinant Negatives Include Back Pain Binge Eating Bloating Constipation Diarrhea Emotional Eating GERD/Heartburn Increased Food Cravings Increased Hunger Joint Pain Side Effects from Weight Loss Medications Frequent Vomitting Frothing Pain with Eating Sensation of Food Sticking Taste Aversion Dumping Syndrome Low Protein Intake Low Fluid Intake Maladaptive Eating Poor Exercise Compliance Food Intolerance Satisfactory Progress PAST MEDICAL HISTORY: Past Medical History: Diagnosis Date ??? Anxiety (HRC) ??? Depression (HRC) ??? Heartburn ??? Obesity (HRC) MEDICATIONS: No current outpatient medications on file as of 11/28/2018. No current facility-administered medications on file as of 11/28/2018. ADR/ALLERGIES: Patient has no known allergies. SOCIAL HISTORY: Social History Socioeconomic History ??? Marital status: Legally Spouse name: Not on file ??? Number of children: Not on file ??? Years of education: Not on file ??? Highest education level: Not on file Social Needs ??? Financial resource strain: Not on file ??? Food insecurity - worry: Not on file ??? Food insecurity - inability: Not on file ??? Transportation needs - medical: Not on file ??? Transportation needs - non-medical: Not on file Occupational History ??? Not on file Tobacco Use ??? Smoking status: Never Smoker ??? Smokeless tobacco: Never Used Substance and Sexual Activity ??? Alcohol use: Yes Comment: rare ??? Drug use: Not on file ??? Sexual activity: Not on file Other Topics Concern ??? Not on file Social History Narrative ??? Not on file Patient Employment Employer: Address: City: State: Zip: Phone: Occupation: Employee?: No OBJECTIVE: BP 124/77 (BP Location: Right Arm, BP Cuff Size: Adult Large) Pulse 71 Ht 5' 4 (162.6 cm) Wt 215 lb 6.4 oz (28892 g) BMI 36.97 kg/m?? BMI: Estimated body mass index is 36.97 kg/m?? as calculated from the following: Height as of this encounter: 5' 4 (162.6 cm). Weight as of this encounter: 215 lb 6.4 oz (65621 g). GENERAL: Patient appears no apparent distress RESPIRATORY: Normal respiratory effort PSYCH: no overt evidence of anxiety or depression SKIN: no rashes on exposed skin NEURO: normal gait MUSCULOSKELETAL: no LE edema LABORATORY STUDIES: Recent [facility] 11/20/2018 Vitamin B12 888 Potassium 3.4 (L) Hgb 12.7 Hct 38.5 PLT 329 10/18/2018 Vitamin D 33 10/16/2018 Ferritin 116 TSH 0.8 ASSESSMENT: We will continue to treat the patient's obesity, obesity-associated medical conditions, and conditions exacerbated by or contributing to weight gain by aggressive management of weight: ICD-10-CM 1. Hypertension, unspecified type (HRC) I10 2. Status post bariatric surgery Z98.84 IRON PROFILE (IRON,TIBC,%SAT.(CALC)) FERRITIN Intact PTH Calcium PREALBUMIN 3. Intestinal malabsorption, unspecified type K90.9 IRON PROFILE (IRON,TIBC,%SAT.(CALC)) FERRITIN Intact PTH Calcium PREALBUMIN 4. Personal history of endocrine disorder Z86.39 Vitamin D 25-Hydroxy, Total 5. Class 2 obesity with body mass index (BMI) of 36.0 to 36.9 in adult, unspecified obesity type, unspecified whether serious comorbidity present (C) E66.9 Z68.36 PLAN: Routine laboratory studies needed today. Patient will work on focusing on protein - given protein supplements hand out. Suggested patient tryprotein supplement mixed with coffee. Patient also given meal ideas after bariatric surgery. Advisedpatient to use MyFitnessPal to track intake until she sees the dietitian. Schedule appointment with dietitian. Given education binder for post-op teaching and advised patient to review binder. Return to the clinic in 2 months for routine 6 month post-op visit (will not need labs, as labs wereordered at visit today), sooner p.r.n. problems or concerns. Patient is especially encouraged to return to the clinic if failing to lose further weight. Total time 60 minutes, [id number] counseling time 45 minutes, spent discussing lifestyle interventions for management of weight post-surgery as above. Evelia Temple PA-C FACTURING ASSOCIATE documented in this encounter Plan of Treatment Not on filedocumented as of this encounter Results PREALBUMIN (01/08/2019 3:24 PM MANUFACTURING ASSOCIATE) athologist Signature Prealbumin 17.5 16.0 - 38.0 PN SOFT mg/dL Specimen Anatomical Collection Method Collection Time Receive d Time (Source) Location / / Volume Laterality 01/08/2019 3:24 PM 9 6:54 MANUFACTURING ASSOCIATE PM MANUFACTURING ASSOCIATE Narrative PN SOFT - 01/08/2019 8:31 PM MANUFACTURING ASSOCIATE Performed at [facility], [address] [place] [address] CLIA number [id number] Evelia Temple PA-C LAB_1 Performing Organization Address [facility]UST Code Phon e Number PN SOFT [address] [place] [address] Calcium (01/08/2019 3:24 PM MANUFACTURING ASSOCIATE) athologist Signature Calcium 9.8 8.4 - 10.4 PN SOFT mg/dL Specimen Anatomical Collection Method Collection Time Receive d Time (Source) Location / / Volume Laterality 01/08/2019 3:24 PM 9 5:05 MANUFACTURING ASSOCIATE PM MANUFACTURING ASSOCIATE Narrative PN SOFT - 01/08/2019 5:28 PM MANUFACTURING ASSOCIATE Performed at [facility], [address] [place] [address] CLIA number [id number] Evelia Temple PA-C LAB_1 Performing Organization Address [facility] Phon e Number PN SOFT [address] [place] [address] Intact PTH (01/08/2019 3:24 PM MANUFACTURING ASSOCIATE) athologist Signature PTH 80 10 - 100 PN SOFT pg/mL Specimen Anatomical Collection Method Collection Time Receive d Time (Source) Location / / Volume Laterality 01/08/2019 3:24 PM 9 9:24 MANUFACTURING ASSOCIATE AM MANUFACTURING ASSOCIATE Narrative PN SOFT - 01/09/2019 10:19 AM MANUFACTURING ASSOCIATE Performed at [facility], [address] [place] [address] CLIA number [id number] Evelia Temple PA-C LAB_1 Performing Organization Address [facility] Phon e Number PN SOFT [address] [place] [address] Vitamin D 25-Hydroxy, Total (01/08/2019 3:24 PM MANUFACTURING ASSOCIATE) athologist Signature Vitamin D 25 Oh 22 20 - 80 PN SOFT ng/mL Comment: Deficiency = <20 Adequate ??= 20-29 Preferred = 30-50 Uncertain safety = 51-80 High = >80 Specimen Anatomical Collection Method Collection Time Receive d Time (Source) Location / / Volume Laterality 01/08/2019 3:24 PM 9 6:54 MANUFACTURING ASSOCIATE PM MANUFACTURING ASSOCIATE Narrative PN SOFT - 01/08/2019 8:11 PM MANUFACTURING ASSOCIATE Performed at [address] [address] CLIA number [id number] Evelia Temple PA-C LAB_1 Performing Organization Address [facility] Phon e Number PN SOFT [address] [place] [address] FERRITIN (01/08/2019 3:24 PM MANUFACTURING ASSOCIATE) P athologist Signature Ferritin Serum 108 9 - 204 PN SOFT ng/mL Specimen Anatomical Collection Method Collection Time Receive d Time (Source) Location / / Volume Laterality 01/08/2019 3:24 PM 9 6:54 MANUFACTURING ASSOCIATE PM MANUFACTURING ASSOCIATE Narrative PN SOFT - 01/08/2019 8:12 PM MANUFACTURING ASSOCIATE Performed at [address] [address] CLIA number [id number] Evelia Temple PA-C LAB_1 Performing Organization Address [facility] Phon e Number PN SOFT [address] [place] [address] (ABNORMAL) IRON PROFILE (IRON,TIBC,%SAT.(CALC)) (01/08/2019 3:24 PM MANUFACTURING ASSOCIATE) Patholo gist Method Time Signature Iron, Serum 49 (L) 50 - 170 PN SOFT ug/dL Transferrin 211 180 - 382 PN SOFT mg/dL Iron Binding 264 250 - 450 PN SOFT Capacity, ug/dL Calculated Iron TIBC see below PN SOFT Interpretation Comment: Low iron, normal TIBC, possible iron deficiency. Iron Saturation 19 (L) 20 - 55 % PN SOFT Specimen Anatomical Collection Method Collection Time Receive d Time (Source) Location / / Volume Laterality 01/08/2019 3:24 PM 9 6:54 MANUFACTURING ASSOCIATE PM MANUFACTURING ASSOCIATE Narrative PN SOFT - 01/08/2019 8:31 PM MANUFACTURING ASSOCIATE Performed at [address] [address] CLIA number [id number] Evelia Temple PA-C LAB_1 Performing Organization Address City/State/ZIP Code Phon e Number PN SOFT [address] [place] [address] [phone] documented in this encounter Visit Diagnoses Diagnosis Hypertension, unspecified type (HRC) - P rimary Status post bariatric surgery Bariatric surgery status Intestinal malabsorption, unspecified ty pe Personal history of endocrine disorder Personal history of other endocrine, met abolic, and immunity disorders Class 2 obesity with body mass index (BM I) of 36.0 to 36.9 in adult, unspecified obesity type, unspecified whether seriou s comorbidity present (HRC) Status post bariatric surgery Bariatric surgery status Intestinal malabsorption, unspecified ty pe Personal history of endocrine disorder Personal history of other endocrine, met abolic, and immunity disorders documented in this encounter Care Teams Line Server Relationship Specialty Start Date End Date Unassigned, Provider PCP - General 08/08/[address] [place] [address] documented as of this encounter
--- OUTSIDE RECORDS SUMMARY | 2022-07-24 15:10 | XMS_ITS | Encounter Summary ---
:1985 Author Organization [facility] Address [address] [place] [address] Care Team Providers Name Role Phone Annemarie Montiel M.D. Primary Care Provider [phone] Encounter Details Date Type Department Care Team Description 05/16/2022 Clinical Communication Department of Neurology Marina Winter, in [facility] jeevan Jaramillo, M.P.H. [address] [place] [phone] Social History Tobacco Use Types Packs/Day Years [...] 03/29/2020 relatives? How often do you attend hoahaoism or jainism Never 07/04/2019 services? 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 [address] [place], [place] [phone] (Wo rk) Scheduled Procedures Name Priority Associated Diagnoses Date/Time LIFT THIGH Excessive And Redundant Skin And Subcutaneous Tissue documented as of this encounter Visit Diagnoses Not on filedocumented in this encounter Additional Health Concerns Assessment Noted Time PHQ-9 Depression Total Score: 12 06/10/2020 1:20 PM CD T documented as of this encounter Care Teams Business Intelligence Director Relationship Specialty Start Date End Date Annemarie Montiel M.D. PCP - General 04/19/17 [address] [place] [address] documented as of this encounter
--- OUTSIDE RECORDS SUMMARY | 2022-07-24 15:10 | XMS_ITS | Encounter Summary ---
:1985 Author Organization [facility] Address [address] [place] [address] Care Team Providers Name Role Phone Annemarie Montiel M.D. Primary Care Provider [phone] Encounter Details Date Type Department Care Team Description 02/04/2021 Orders Only [facility] PCP [facility] Sa solomon Jacobs M.D. [address] [place], [place] [phone] (Wo rk) Social History Tobacco Use Types [...] 03/29/2020 relatives? How often do you attend hinduism or catholic Never 07/04/2019 services? 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 [address] [place], [place] [phone] (Wo rk) Scheduled Procedures Name Priority Associated Diagnoses Date/Time LIFT THIGH Excessive And Redundant Skin And Subcutaneous Tissue documented as of this encounter Visit Diagnoses Not on filedocumented in this encounter Additional Health Concerns Assessment Noted Time PHQ-9 Depression Total Score: 12 06/10/2020 1:20 PM CD T documented as of this encounter Care Teams Pension Agent Relationship Specialty Start Date End Date Annemarie Montiel M.D. PCP - General 04/19/[address] [place] [address] documented as of this encounter
--- OUTSIDE RECORDS SUMMARY | 2022-07-24 15:10 | XMS_ITS | Encounter Summary ---
:1985 Author Organization [facility] Address [address] [place] [address] Care Team Providers Name Role Phone Annemarie Montiel M.D. Primary Care Provider [phone] Reason for Visit Reason Comments Medical Information Encounter Details Date Type Department Care Team Description 12/09/2020 Clinical Communication Department of Marina Winter Information Neurology in [place], [place] [address] [phone] Social History Tobacco Use Types Packs/Day Years [...] 03/29/2020 relatives? How often do you attend mandaen or religion Never 07/04/2019 services? 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 - 12/09/2020 2:09 PM SENSORY SCIENTIST Patient wanting to get Botox earlier than 02/02/21. Instructed patient that Botox is every three months. If given earlier than that insurance would not cover it. Patient will wait for her scheduled appt. In January. ORY SCIENTIST Telephone Encounter - Mónica Saleh L.P.N. - 12/09/2020 1:55 PM SENSORY SCIENTIST Dec has some return appointment slots. Please call her to schedule. I do not see what you are seeing on February 02? ORY SCIENTIST Telephone Encounter - Stiven Pinto - 12/09/2020 12:32 PM CST Reason for Communication: Patient called and is having migraines and is wondering f if she can be seen sooner then january, or if she has to wait that long. Also on that appt that is made for 02/02 ther is a reschedule angel on that appt. Does that appt need to be rescheduled?, please advise. Current Can Nursing/Provider leave a detailed message: yes Did the patient refuse triage through Nurse line? (for symptom based concerns): Action Needed: Name of Medication (if relevant): ORY SCIENTIST documented in this encounter Plan of Treatment Upcoming Encounters Date Type Specialty Care Team Description 08/17/2022 Procedure visit Neurology Marina Winter M.D., M.P.H. [address] [phone] (Wo ) Scheduled Procedures Name Priority Associated Diagnoses Date/Time LIFT THIGH Excessive And Redundant Skin And Subcutaneous Tissue documented as of this encounter Visit Diagnoses Not on filedocumented in this encounter Additional Health Concerns Assessment Noted Time PHQ-9 Depression Total Score: 12 06/10/2020 1:20 PM CD T documented as of this encounter Care Teams Senior Maintenance Technician Relationship Specialty Start Date End Date Annemarie Montiel M.D. PCP - General 04/19/[address] [phone] documented as of this encounter
--- OUTSIDE RECORDS SUMMARY | 2022-07-24 15:10 | XMS_ITS | Encounter Summary ---
:1985 Author Organization [facility] Address [address] [place] [address] Care Team Providers Name Role Phone Annemarie Montiel M.D. Primary Care Provider [phone] Encounter Details Date Type Department Care [...] 03/29/2020 relatives? How often do you attend uatsdin or rastafarian Never 07/04/2019 services? 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 [address] [phone] (Wo rk) Scheduled Procedures Name Priority Associated Diagnoses Date/Time LIFT THIGH Excessive And Redundant Skin And Subcutaneous Tissue documented as of this encounter Procedures Procedure Name Priority Date/Time Associated Diagnosis Comme nts PLASTIC AND RECON Routine 04/11/2022 12:05 AM Res ults for this SURGERY IMAGE EXAM CDT procedure are in the results section. documented in this encounter Results Neck to Knees Thigh Lift-Plastic And Recon Surgery Image Exam (04/11/2022 12:05 AM CDT) Specimen (Source) Anatomical Location Collection Method / Collectio n Time Received Time / Laterality Volume Narrative IIMS - 04/19/2022 1:45 PM CDT This order has been created and auto-finalized to support the import of images acquired without order. The clini lori documentation to support these images can be found on the encounter nate t produced images. Provider Not In System IMG NON RAD IMAGING PROCEDUR ES Performing Organization Address City/State/ZIP Code Phon e Number IIMI IIMS NA documented in this encounter Visit Diagnoses Not on filedocumented in this encounter Additional Health Concerns Assessment Noted Time PHQ-9 Depression Total Score: 12 06/10/2020 1:20 PM CD T documented as of this encounter Care Teams Harbor Boat Pilot Relationship Specialty Start Date End Date Annemarie Montiel M.D. PCP - General 04/19/[address], [place] [phone] documented as of this encounter
--- OUTSIDE RECORDS SUMMARY | 2022-07-24 15:10 | XMS_ITS | Encounter Summary ---
:1985 Author Organization [facility] Address [address] [place] [address] Care Team Providers Name Role Phone Annemarie Montiel M.D. Primary Care Provider [phone] Reason for Referral Outpatient (Routine) - Authorized Specialty Diagnoses / Procedures Referred By Contact Refer red To Contact Diagnoses Migraine Headache Marina Winter M.D., [facility] Procedures Botox for chronic migraine M.P.H. [address] [place] [phone] Referral ID Status Reason Start Date Expiration Date Visits V isits Requested Authorized [id number] Authorized 08/04/2021 08/04/2022 1 1 Reason for Visit Reason Comments Botulinum Toxin Injection Outpatient (Routine) - Closed Specialty Diagnoses / Procedures Referred By Contact Refer red To Contact Diagnoses Migraine Headache Marina Winter M.D., [facility] Procedures Botox for Chronic Migraine M.P.H. [address] [place] [phone] Referral ID Status Reason Start Date Expiration Date Visits Requ ested Visits Authorized [id number] Closed 05/05/2021 05/05/2022 1 1 Encounter Details Date Type Department Care Team Description 08/04/2021 Procedure visit Department of Neurology Marina Winter, Migraine Headache in [facility] jeevan Jaramillo, M.P.H. [address] [place] [phone] Social History Tobacco Use Types Packs/Day Years [...] 03/29/2020 relatives? How often do you attend caodaism or methodist Never 07/04/2019 services? 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 - 08/04/2021 1:45 PM CDTAssociated Order(s): Botox for chronic migraine Post-Procedure Diagnose(s): Migraine Headache Botox for chronic migraine Date/Time: 08/04/2021 1:21 PM Performed by: Marina Winter M.D., M.P.H. Authorized by: Marina Winter M.D., M.P.H. PROCEDURE DETAILS Pre-procedure pain score: 0/10 Injection of: 100 Units onabotulinumtoxinA 100 unit; 50 Units onabotulinumtoxinA 100 unit Needle gauge: 30 Needle length: 0.5 in Injection site details Warm In Worker / Procerus muscle(s): 5 units into the left excel expert muscle, 5 units into the right excel expert muscle and 5 units into the procerus [...] a third republican. Prior preventative medication trials: amitriptyline and topiramate Headache frequency Headache days per month: 2 days Severe headache days per month: 1 days POST-PROCEDURE DETAILS: Procedure completed successfully: yes Complications: no apparent complications documented in this encounter Plan of Treatment Upcoming Encounters Date Type Specialty Care Team Description 08/17/2022 Procedure visit Neurology Marina Witner M.D., M.P.H. [address] [place] [phone] (Wo rk) Scheduled Procedures Name Priority Associated Diagnoses Date/Time LIFT THIGH Excessive And Redundant Skin And Subcutaneous Tissue documented as of this encounter Procedures Procedure Name Priority Date/Time Associated Comments Diagnosis CA CHEMODENERV FACIAL Routine 08/04/2021 1:21 PM Migraine Head ache Results for this TRIGEM NIDHI CDT procedure are i n the results section. documented in this encounter Results CA CHEMODENERV FACIAL TRIGEM NIDHI (08/04/2021 1:21 PM CDT) Narrative MMODAL - 08/04/2021 1:21 PM CDT Marina Winter M.D., M.P.H. ? 08/04/2021 ??1:30 PM Botox for chronic migraine Date/Time: 08/04/2021 1:21 PM Performed by: Marina Winter M.D., M.P .H. Authorized by: Marina Winter M.D., M. P.H. PROCEDURE DETAILS ?? Pre-procedure pain score: 0/10 Injection of: 100 Units onabotulinumtoxi nA 100 unit; 50 Units onabotulinumtoxinA 100 unit Needle gauge: 30 Needle length: 0.5 in Injection site details Warm In Worker / Procerus muscle(s): 5 units into the left excel expert muscle, 5 units into the right excel expert muscle and 5 units into the procerus [...] republican. ?? Prior preventative medication trials: am itriptyline and topiramate Headache frequency Headache days per month: 2 days Severe headache days per month: 1 [...] Dose Rate Site onabotulinumtoxinA injection 100 Given 08/04/2021 1:21 PM 100 Un its Units (BOTOX) CDT 100 Units, injection, One-Time Injection, Starting on Anneliese 08/04/21 at 1321, For 1 dose onabotulinumtoxinA injection 50 Units Given 08/04/2021 1:21 PM C DT 50 Units (BOTOX) 50 Units, injection, One-Time Injection, Starting on Anneliese 08/04/21 at 1321, For 1 dose documented in this encounter Additional Health Concerns Assessment Noted Time PHQ-9 Depression Total Score: 12 06/10/2020 1:20 PM CD T documented as of this encounter Care Teams Casing Inspector Relationship Specialty Start Date End Date Annemarie Montiel M.D. PCP - General 04/19/[address] [phone] documented as of this encounter
--- OUTSIDE RECORDS SUMMARY | 2022-07-24 15:10 | XMS_ITS | Encounter Summary ---
:1985 Author Organization [facility] Address [address] [place] [address] Care Team Providers Name Role Phone Annemarie Montiel M.D. Primary Care Provider [phone] Reason for Referral Outpatient (Routine) - Closed Specialty Diagnoses / Procedures Referred By Contact Refer red To Contact Diagnoses Migraine Headache Marina Winter M.D., [facility] Procedures Botox for chronic migraine MT INJECTION,ONABOTULINUMTOXINA MT CHEMODENERV FACIAL TRIGEM NIDHI M.P.H. [address] [place] [phone] Referral ID Status Reason Start Date Expiration Date Visits Requ ested Visits Authorized [id number] Closed 11/04/2020 11/04/2021 1 4 SION PLANT ENGINEER Reason for Visit Reason Comments Botulinum Toxin Injection Outpatient (Routine) - Authorized Specialty Diagnoses / Procedures Referred By Contact Refer red To Contact Diagnoses Migraine Headache Marina Winter M.D., [facility] Procedures Botox for Chronic Migraine M.P.H. [address] [place] [phone] Referral ID Status Reason Start Date Expiration Date Visits V isits Requested Authorized [id number] Authorized 10/06/2020 10/06/2022 4 4 Encounter Details Date Type Department Care Team Description 11/04/2020 Procedure visit Department of Neurology Marina Winter, Migraine Headache in [facility] jeevan Jaramillo, M.P.H. [address] [place], [place] [phone] Social History Tobacco Use Types Packs/Day Years [...] 03/29/2020 relatives? How often do you attend gnosticism or hoahaoism Never 07/04/2019 services? 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 - 11/04/2020 8:45 AM CSTAssociated Order(s): Botox for chronic migraine Post-Procedure Diagnose(s): Migraine Headache Botox for chronic migraine Date/Time: 11/04/2020 8:45 AM Performed by: Marina Winter M.D., M.P.H. Authorized by: Marina Winter M.D., M.P.H. PROCEDURE DETAILS Pre-procedure pain score: 2/10 Injection of: 100 Units onabotulinumtoxinA 100 unit 50 Units onabotulinumtoxinA (cosmetic) 50 unit Needle gauge: 30 Needle length: 0.5 in Injection site details Catalyst Operator Gasoline / Procerus muscle(s): 5 units into the left galvanizer zinc muscle, 5 units into the right galvanizer zinc muscle and 5 units into the procerus [...] that is not covered by a third alliance party. Prior preventative medication trials: amitriptyline, propranolol and topiramate Headache frequency Headache days per month: 8 days Severe headache days per month: 4 days POST-PROCEDURE DETAILS: Procedure completed successfully: yes Complications: no apparent complications SION PLANT ENGINEER documented in this encounter Plan of Treatment Upcoming Encounters Date Type Specialty Care Team Description 08/17/2022 Procedure visit Neurology Marina Winter M.D., M.P.[facility] [address] [place] [phone] (Wo rk) Scheduled Procedures Name Priority Associated Diagnoses Date/Time LIFT THIGH Excessive And Redundant Skin And Subcutaneous Tissue documented as of this encounter Procedures Procedure Name Priority Date/Time Associated Comments Diagnosis MT CHEMODENERV FACIAL Routine 11/04/2020 8:45 AM Migraine Head ache Results for this TRIGEM NIDHI DIVISION PLANT ENGINEER procedure are i n the results section. documented in this encounter Results MT CHEMODENERV FACIAL TRIGEM NIDHI (11/04/2020 8:45 AM DIVISION PLANT ENGINEER) Narrative MMODAL - 11/04/2020 8:45 AM DIVISION PLANT ENGINEER Marina Winter M.D., M.P.H. ? 11/04/2020 ??9:08 AM Botox for chronic migraine Date/Time: 11/04/2020 8:45 AM Performed by: Marina Winter M.D., M.P .H. Authorized by: Marina Winter M.D., M. P.H. PROCEDURE DETAILS ?? Pre-procedure pain score: 2/10 Injection of: 100 Units onabotulinumtoxi nA 100 unit 50 Units onabotulinumtoxinA (cosmetic) 50 unit Needle gauge: 30 Needle length: 0.5 in Injection site details Catalyst Operator Gasoline / Procerus muscle(s): 5 units into the left galvanizer zinc muscle, 5 units into the right galvanizer zinc muscle and 5 units into the procerus [...] that is not covered by a third alliance party. ?? Prior preventative medication trials: am itriptyline, propranolol and topiramate Headache frequency Headache days per month: 8 days Severe headache days per month: 4 days POST-PROCEDURE DETAILS: Procedure completed successfully: yes Complications: no apparent complications Marina Winter M.D., M.P.H. NEUROLOGY ORDERABLES Performing Organization Address City/State/ZIP Code Phon e Number MMODAL MMODAL NA documented in this encounter Visit Diagnoses Diagnosis Migraine Headache documented in this encounter Administered Medications Inactive Administered Medications - up to 3 most recent administrations Medication Order MAR Action Action Date Dose Rate Site onabotulinumtoxinA (cosmetic) Given 11/04/2020 8:45 AM 50 Units injection 50 Units (BOTOX DIVISION PLANT ENGINEER COSMETIC) 50 Units, injection, One-Time Injection, Starting on Anneliese 11/04/20 at 0845, For 1 dose onabotulinumtoxinA injection 100 Units Given 11/04/2020 8:45 AM DIVISION PLANT ENGINEER 100 Units (BOTOX) 100 Units, injection, One-Time Injection, Starting on Anneliese 11/04/20 at 0845, For 1 dose documented in this encounter Additional Health Concerns Assessment Noted Time PHQ-9 Depression Total Score: 06/10/2020 1:20 PM CD T documented as of this encounter Care Teams Bale Opener Relationship Specialty Start Date End Date Annemarie Montiel M.D. PCP - General 04/19/[address] [phone] documented as of this encounter
--- OUTSIDE RECORDS SUMMARY | 2022-07-24 15:10 | XMS_ITS | Encounter Summary ---
:1985 Author Organization [facility] Address [address] [place] [address] Care Team Providers Name Role Phone Annemarie Montiel M.D. Primary Care Provider [phone] Reason for Referral Outpatient (Routine) - Closed Specialty Diagnoses / Procedures Referred By Contact Refer red To Contact Diagnoses Migraine Headache Marina Winter M.D., [facility] Procedures Botox for Chronic Migraine M.P.H. [address] [phone] Referral ID Status Reason Start Date Expiration Date Visits Requ ested Visits Authorized [id number] Closed 11/04/2020 11/04/2021 1 1 GRAPHY TECHNICIAN Encounter Details Date Type Department Care Team Description 11/04/2020 Orders Only Department of Neurology Marina Winter, Migraine Headache in [facility] jeevan Jaramillo, M.P.H. (Primary Dx) [address] [place] [phone] Social History Tobacco Use Types Packs/Day Years [...] 03/29/2020 relatives? How often do you attend protestant or cheondoism Never 07/04/2019 services? 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 [address] [place], [place] [phone] (Wo rk) Scheduled Orders Name Type Priority Associated Diagnoses Order S chedule Botox for Chronic Procedures Routine Migraine Headache Expec heaven: 02/02/2021, Migraine Expires: 2020 Scheduled Procedures Name Priority Associated Diagnoses Date/Time LIFT THIGH Excessive And Redundant Skin And Subcutaneous Tissue documented as of this encounter Visit Diagnoses Diagnosis Migraine Headache - Primary documented in this encounter Additional Health Concerns Assessment Noted Time PHQ-9 Depression Total Score: 06/10/2020 1:20 PM CD T documented as of this encounter Care Teams Display Director Relationship Specialty Start Date End Date Annemarie Monteil M.D. PCP - General 04/19/17 [address], [place] [phone] documented as of this encounter
--- OUTSIDE RECORDS SUMMARY | 2022-07-24 15:10 | XMS_ITS | Encounter Summary ---
:1985 Author Organization [facility] Address [address] [place] [address] Care Team Providers Name Role Phone Unassigned, Provider Primary Care Provider Unavailable Encounter Details Date Type Department Care Team Description 01/08/2019 Lab Visit [facility] Status post bariatric surger y; [id number]. Intestinal malabsorption, un specified type; [place] [address] Personal history of endocrin e disorder [phone] Social History Tobacco Use Types Packs/Day Years [...] on file documented as of this encounter Plan of Treatment Not on filedocumented as of this encounter Procedures Procedure Name Priority Date/Time Associated Diagnosis Comme nts VITAMIN D Routine 01/08/2019 3:24 PM Personal history of Re sults for this 25-HYDROXY, TOTAL RADIOLOGICAL TECHNICIAN endocrine disorder proc edure are in the results section. INTACT PTH Routine 01/08/2019 3:24 PM Status post Results f or this RADIOLOGICAL TECHNICIAN bariatric surger y procedure are in Intestinal the results malabsorption, section. unspecified type PREALBUMIN Routine 01/08/2019 3:24 PM Status post Results f or this RADIOLOGICAL TECHNICIAN bariatric surger y procedure are in Intestinal the results malabsorption, section. unspecified type FERRITIN Routine 01/08/2019 3:24 PM Status post Results f or this RADIOLOGICAL TECHNICIAN bariatric surger y procedure are in Intestinal the results malabsorption, section. unspecified type IRON PROFILE Routine 01/08/2019 3:24 PM Status post Results f or this (IRON,TIBC,%SAT.(WENDI RADIOLOGICAL TECHNICIAN bariatric s urgery procedure are in C)) Intestinal the results malabsorption, section. unspecified type CALCIUM Routine 01/08/2019 3:24 PM Status post Results f or this RADIOLOGICAL TECHNICIAN bariatric surger y procedure are in Intestinal the results malabsorption, section. unspecified type documented in this encounter Results PREALBUMIN (01/08/2019 3:24 PM RADIOLOGICAL TECHNICIAN) athologist Signature Prealbumin 17.5 16.0 - 38.0 PN SOFT mg/dL Specimen Anatomical Collection Method Collection Time Receive d Time (Source) Location / / Volume Laterality 01/08/2019 3:24 PM 9 6:54 RADIOLOGICAL TECHNICIAN PM RADIOLOGICAL TECHNICIAN Narrative PN SOFT - 01/08/2019 8:31 PM RADIOLOGICAL TECHNICIAN Performed at [address] [address] CLIA number [id number] Evelia Temple PA-C LAB_1 Performing Organization Address [facility] Phon e Number PN SOFT [address] [place] [address] Calcium (01/08/2019 3:24 PM RADIOLOGICAL TECHNICIAN) athologist Signature Calcium 9.8 8.4 - 10.4 PN SOFT mg/dL Specimen Anatomical Collection Method Collection Time Receive d Time (Source) Location / / Volume Laterality 01/08/2019 3:24 PM 9 5:05 RADIOLOGICAL TECHNICIAN PM RADIOLOGICAL TECHNICIAN Narrative PN SOFT - 01/08/2019 5:28 PM RADIOLOGICAL TECHNICIAN Performed at [facility], [address] [place] [address] CLIA number [id number] Evelia Temple PA-C LAB_1 Performing Organization Address [facility] Phon e Number PN SOFT [address] [place] [address] Intact PTH (01/08/2019 3:24 PM RADIOLOGICAL TECHNICIAN) athologist Signature PTH 80 10 - 100 PN SOFT pg/mL Specimen Anatomical Collection Method Collection Time Receive d Time (Source) Location / / Volume Laterality 01/08/2019 3:24 PM 9 9:24 RADIOLOGICAL TECHNICIAN AM RADIOLOGICAL TECHNICIAN Narrative PN SOFT - 01/09/2019 10:19 AM RADIOLOGICAL TECHNICIAN Performed at [address] [address] CLIA number [id number] Evelia Poole Windy CHAVES LAB_1 Performing Organization Address [facility] Phon e Number PN SOFT [address] [place] [address] Vitamin D 25-Hydroxy, Total (01/08/2019 3:24 PM RADIOLOGICAL TECHNICIAN) athologist Signature Vitamin D 25 Oh 22 20 - 80 PN SOFT ng/mL Comment: Deficiency = <20 Adequate ??= 20-29 Preferred = 30-50 Uncertain safety = 51-80 High = >80 Specimen Anatomical Collection Method Collection Time Receive d Time (Source) Location / / Volume Laterality 01/08/2019 3:24 PM 9 6:54 RADIOLOGICAL TECHNICIAN PM RADIOLOGICAL TECHNICIAN Narrative PN SOFT - 01/08/2019 8:11 PM RADIOLOGICAL TECHNICIAN Performed at [address] [address] CLIA number [id number] Evelia Poole Windy MCCONNELLC LAB_1 Performing Organization Address [facility] Phon e Number PN SOFT [address] [place] [address] FERRITIN (01/08/2019 3:24 PM RADIOLOGICAL TECHNICIAN) athologist Signature Ferritin Serum 108 9 - 204 PN SOFT ng/mL Specimen Anatomical Collection Method Collection Time Receive d Time (Source) Location / / Volume Laterality 01/08/2019 3:24 PM 9 6:54 RADIOLOGICAL TECHNICIAN PM RADIOLOGICAL TECHNICIAN Narrative PN SOFT - 01/08/2019 8:12 PM RADIOLOGICAL TECHNICIAN Performed at [address] [address] CLIA number [id number] Evelia Poole Windy CHAVES LAB_1 Performing Organization Address [facility] Phon e Number PN SOFT [address] [place] [address] (ABNORMAL) IRON PROFILE (IRON,TIBC,%SAT.(CALC)) (01/08/2019 3:24 PM RADIOLOGICAL TECHNICIAN) [facility] Method Time Signature Iron, Serum 49 (L) [...] Volume Laterality 01/08/2019 3:24 PM 9 6:54 RADIOLOGICAL TECHNICIAN PM RADIOLOGICAL TECHNICIAN Narrative PN SOFT - 01/08/2019 8:31 PM RADIOLOGICAL TECHNICIAN Performed at [address] [address] CLIA number [id number] Evelia Temple PA-C LAB_1 Performing Organization Address City/State/ZIP Code Phon e Number SOFT [address] [place] [address] documented in this encounter Visit Diagnoses Diagnosis Status post bariatric surgery Bariatric surgery status Intestinal malabsorption, unspecified ty pe Personal history of endocrine disorder Personal history of other endocrine, met abolic, and immunity disorders documented in this encounter Care Teams Baggage Handling Supervisor Relationship Specialty Start Date End Date Unassigned, Provider PCP - General 08/08/[address] [place] [phone] documented as of this encounter
--- OUTSIDE RECORDS SUMMARY | 2022-07-24 15:10 | XMS_ITS | Encounter Summary ---
:1985 Author Organization [facility] Address [address] [place] [address] Care Team Providers Name Role Phone Annemarie Montiel M.D. Primary Care Provider [phone] Reason for Referral Outpatient (Routine) - Authorized Specialty Diagnoses / Procedures Referred By Contact Refer red To Contact Diagnoses Migraine Headache Marina Winter M.D., [facility] Procedures Botox for Chronic Migraine M.P.H. [address] [place] [phone] Referral ID Status Reason Start Date Expiration Date Visits V isits Requested Authorized [id number] Authorized 05/18/2022 05/18/2023 4 4 Reason for Visit Reason Comments Botulinum Toxin Injection Outpatient (Routine) - Authorized Specialty Diagnoses / Procedures Referred By Contact Refer red To Contact Diagnoses Migraine Headache Marina Winter M.D., [facility] Procedures Botox for Chronic Migraine [facility] [address] [place] [address] Referral ID Status Reason Start Date Expiration Date Visits V isits Requested Authorized [id number] Authorized 10/06/2020 10/06/2022 4 4 Encounter Details Date Type Department Care Team Description 05/18/2022 Procedure visit Department of Neurology Marina Winter, Migraine Headache in Pending Sale To [facility] jeevan Jaramillo, M.P.H. [address] [place] [phone] Social History Tobacco Use Types Packs/Day Years [...] 03/29/2020 relatives? How often do you attend presybeterian or anglican Never 07/04/2019 services? 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 - 05/18/2022 1:45 PM CDTAssociated Order(s): Botox for Chronic Migraine Pre-Procedure Diagnose(s): Migraine Headache Post-Procedure Diagnose(s): Migraine Headache Botox for Chronic Migraine Date/Time: 05/18/2022 1:53 PM Performed by: Marina Winter M.D., M.P.H. Authorized by: Marina Winter M.D., M.P.H. PROCEDURE DETAILS Pre-procedure pain score: 0/10 Injection of: 100 Units onabotulinumtoxinA 100 unit; 100 Units onabotulinumtoxinA 100 unit; 50 UnitsonabotulinumtoxinA 100 unit Needle gauge: 30 Needle length: 0.5 in Injection site details Hypnotherapist / Procerus muscle(s): 5 units into the left wood boatbuilder apprentice muscle, 5 units into the right wood boatbuilder apprentice muscle and 5 units into the procerus [...] units injected: 150 CONSENT Consent obtained: written PRE-PROCEDURE DETAILS Reason for injections: chronic migraine [...] third alliance party. Prior preventative medication trials: topiramate and amitriptyline Headache frequency Headache days per month: 4 days Severe headache days per month: 2 days POST-PROCEDURE DETAILS Complications: no apparent complications documented in this encounter Plan of Treatment Upcoming Encounters Date Type Specialty Care Team Description 08/17/2022 Procedure visit Neurology Marina Winter M.D., M.P.H. [address] [phone] (Wo rk) Scheduled Orders Name Type Priority Associated Diagnoses Order S chedule Botox for Chronic Procedures Routine Migraine Headache 4 Occ urrences starting Migraine 05/18/2022 unti l 05/18/2025 Scheduled Procedures Name Priority Associated Diagnoses Date/Time LIFT THIGH Excessive And Redundant Skin And Subcutaneous Tissue documented as of this encounter Procedures Procedure Name Priority Date/Time Associated Comments Diagnosis FL CHEMODENERV FACIAL Routine 05/18/2022 1:53 PM Migraine Head ache Results for this TRIGEM NIDHI CDT procedure are i n the results section. documented in this encounter Results FL CHEMODENERV FACIAL TRIGEM NIDHI (05/18/2022 1:53 PM CDT) Narrative MMODAL - 05/18/2022 1:53 PM CDT Marina Winter M.D., M.P.H. ? 05/18/2022 ??2:05 PM Botox for Chronic Migraine Date/Time: 05/18/2022 1:53 PM Performed by: Marina Winter M.D., M.P .H. Authorized by: Marina Winter M.D., M. P.H. PROCEDURE DETAILS ?? Pre-procedure pain score: 0/10 Injection of: 100 Units onabotulinumtoxi nA 100 unit; 100 Units onabotulinumtoxinA 100 unit; 50 Units on abotulinumtoxinA 100 unit Needle gauge: 30 Needle length: 0.5 in Injection site details Hypnotherapist / Procerus muscle(s): 5 units into the left wood boatbuilder apprentice muscle, 5 units into the right wood boatbuilder apprentice muscle and 5 units into the procerus [...] units injected: 150 CONSENT Consent obtained: written PRE-PROCEDURE DETAILS ?? Reason for injections: chronic [...] alliance party. ?? Prior preventative medication trials: to piramate and amitriptyline Headache frequency Headache days per month: 4 days Severe headache days per month: 2 days POST-PROCEDURE DETAILS ?? Complications: no apparent complications Marina Winter M.D., M.P.H. NEUROLOGY ORDERABLES Performing Organization Address City/State/ZIP Code Phon e Number MMODAL MMODAL NA documented in this encounter Visit Diagnoses Diagnosis Migraine Headache documented in this encounter Administered Medications Inactive Administered Medications - up to 3 most recent administrations Medication Order MAR Action Action Date Dose Rate Site onabotulinumtoxinA injection 100 Given 05/18/2022 1:53 PM 100 Un its Units (BOTOX) CDT 100 Units, injection, One-Time Injection, Starting on Anneliese 05/18/22 at 1353, For 1 dose onabotulinumtoxinA injection 100 Units Given 05/18/2022 1:53 PM CDT 100 Units (BOTOX) 100 Units, injection, One-Time Injection, Starting on Anneliese 05/18/22 at 1353, For 1 dose onabotulinumtoxinA injection 50 Units Given 05/18/2022 1:53 PM C DT 50 Units (BOTOX) 50 Units, injection, One-Time Injection, Starting on Anneliese 05/18/22 at 1353, For 1 dose documented in this encounter Additional Health Concerns Assessment Noted Time PHQ-9 Depression Total Score: 12 06/10/2020 1:20 PM CD T documented as of this encounter Care Teams Line Clearance Foreman Relationship Specialty Start Date End Date Annemarie Montiel M.D. PCP - General 04/19/17 [address] [place] [phone] documented as of this encounter
--- OUTSIDE RECORDS SUMMARY | 2022-07-24 15:10 | XMS_ITS | Encounter Summary ---
:1985 Author Organization [facility] Address [address] [place] [address] Care Team Providers Name Role Phone Unassigned, Provider Primary Care Provider Unavailable Reason for Visit Reason Comments Sleeve Surg Followup DOS 07/2018 in [place] Encounter Details Date Type Department Care Team Description 01/22/2019 Office Visit [facility], Evelia Hypert ension, unspecified type (Primary Dx); Surgery & Weight R, PA-C Status post bariatric surgery; Center [address] [facility] Vitamin D deficiency; [address] [facility] Iron deficiency [address] [place] [id number] [phone] Social History Tobacco Use Types Packs/Day Years [...] Sign Reading Time Taken Comments Blood Pressure 116/65 01/22/2019 11:14 AM CDT Pulse 76 01/22/2019 11:14 AM CDT Temperature - - Respiratory Rate - - Oxygen Saturation - - Inhaled Oxygen Concentration - - Weight 89.9 kg (198 lb 4.8 oz) 01/22/2019 11:14 AM CDT Height 162.6 cm (5' 4) 01/22/2019 11:14 AM CDT Body Mass Index 34.04 01/22/2019 11:14 AM CDT documented in this encounter Patient Instructions Patient InstructionsWindy Evelia ANASTACIO Poole - 01/22/2019 11:00 AM CDT Look at supplements: Vitamin D3 - 6000 IU daily for 1 month and then 2000 IU daily indefinitely Iron - Ferrous Sulfate 325 mg daily Multivitamin daily Calcium daily Vitamin B12 weekly Patient Goals: 1. Schedule appointment with RD 2. Focus on 3 meals per day 3. Pay attention to pain and frothing - triggers, how often kidthingube Channels with variety of exercises: BeFit - https://www.ioGenetics.StormMQ/user/BeFit Daily Burn - https://www.ioGenetics.StormMQ/user/dailyburn FitnessBlender - https://www.Nationwide Vacation Club/user/FitnessBlender Hagen Fitness - https://www.ioGenetics.StormMQ/user/mdloughy PopSugar - https://www.ioGenetics.StormMQ/user/popsugartvfit HasFit - https://www.Nationwide Vacation Club/user/[place] Credit Information ServicessPerform Dancing/Chandu - https://www.ioGenetics.StormMQ/user/FitnesswithJessica Exercise With Children: [employer] Kids Yoga - http://www.Everyday.me/category/watch/ Fit Factor Kids exercise Action Songs for Children - https://www.ioGenetics.StormMQ/playlist?uaet=DH61B9X019D475PX68 Leah - https://www.Solid Sound.StormMQ/style/kids-yoga Low Intensity Exercise: Yoli [place] yoga - Https://www.ioGenetics.StormMQ/user/TaraStilesYoga/featured Yoga with Genet - https://www.ioGenetics.StormMQ/user/yogawithadriene Fightmaster Yoga - https://www.Nationwide Vacation Club/user/lessandyfightmaster kidthingube Chair exercises for weight loss - https://www.ioGenetics.com/results?search_query=chair+exercises+for+weight+loss Stackdriver Low impact cardio workout for beginners - https://www.ioGenetics.com/results?search_query=low+ impact+cardio+workout+for+beginners Exercise Apps: 7 minute workout documented in this encounter Progress Notes Evelia Temple PA-C - 01/22/2019 11:00 AM CDT Bariatric Surgery Post-Operative Follow Up DATE OF VISIT: 01/22/2019 SUBJECTIVE: This 33 y.o. year-old female with chronic medical problems including depression, anxiety presents for routine postoperative followup status post Laparoscopic Vertical Sleeve. Patient returns to the [facility] bariatric clinic for follow up. She had a vertical sleeve gastrectomy (using a 38 [place] Bougie) and hiatal hernia repair at [facility] in [facility] by Dr. Noelle Akbar on 07/23/18. Patient's pre-operative weight was 294 lbs, BMI 50.4. Patient did have a CT scan of the abdomen about 2 weeks post-op due to abdominal pain and a absess vs seroma was seen to the abdominal wall, no evidence of a gastric sleeve leak. Patient states she moved back to [place] from [place] about 3 weeks after bariatric surgery. Patient did not follow up with dietitians after last visit due to poor weather conditions. [place] lives[place], [place]. Patient did complete labs after last visit and is taking MVI, Vitamin B12, Vitamin D and Iron now. Patient's biggest concern is hair loss. She also reports decreased mood. Additionally, Nancy notes pain with eating and frothing if she eats tortillas, bread or eggs. She also does nottolerate ground beef well. Patient notes she tends to graze throughout the day and does not eat three set meals. Patient is not exercising. She has four young children at home. Bariatric Weight Tracking Weight History Highest Adult Weight: 299 lb Starting Weight: 215 lb 6.4 oz Current Weight: 198 lb 4.8 oz Height (in): 64 Weight Calculations Excess Weight: 87 lb 6.4 oz Current Weight Loss: 17 lb 1.6 oz Goal Weight: 128 lb Starting BMI: 37.72695236 Percent Exess Weight Loss: 19.8603248554076 Current BMI: 34.242826021 Percent Totoal Body Weight Loss: 7.02387545852661 Date of surgery 07/23/2018. The patient is eating 3 meals and 1 snacks per day. Food volume is 1/2 cup per meal. Does not tolerate hamburger, high carbohydrate foods Focuses on eating protein at most meals: Yes - patient does not think she eats enough protein Fluid intake averages <48 oz oz per day. Patient is not exercising She reports taking MVI and B12 SL weekly. She is not taking Vitamin D and Calcium supplements as prescribed. Patient denies alcohol use, carbonated beverages, and tobacco use. REVIEW OF SYSTEMS: Patient is experiencing the following symptoms/problems: Back Pain Mood Changes Side Effects from Weight Loss Medications Frothing Pain with Eating PAST MEDICAL HISTORY: Past Medical History: Diagnosis Date ??? Anxiety (HRC) ??? Depression (HRC) ??? Heartburn ??? Obesity (HRC) MEDICATIONS: Outpatient Medications as of 01/22/2019: Biotin 1000 MCG CHEW Take 1 Tablet by mouth daily. Disp: Rfl: calcium citrate-vitamin D (CALCITRATE PLUS D) 315-200 MG-UNIT tablet Take 2 Tablets by mouth two times a day. Disp: Rfl: cholecalciferol (VITAMIND3) 2000 units tablet Take 2,000 Units by mouth daily. Disp: Rfl: ferrous sulfate 325 (65 Fe) MG tablet Take 1 Tablet by mouth daily with breakfast. (Patient not taking: Reported on 01/22/2019) Disp: Rfl: multivitamin with minerals (CERTAVITE,MYADEC) tablet Take 1 Tablet by mouth daily. Disp: Rfl: venlafaxine (EFFEXOR) 75 MG tablet Take 75 mg by mouth two times a day. Disp: Rfl: vitamin B-12 (AKA: CYANOCOBALAMIN) 1000 MCG tablet Take 1,000 mcg by mouth once a week. Sublingual tablet weekly Disp: Rfl: No current facility-administered medications on file as of 01/22/2019. ADR/ALLERGIES: Patient has no known allergies. SOCIAL [...] Yes Comment: rare ??? Drug use: Not Currently ??? Sexual activity: Not on file Lifestyle ??? Physical activity: Days per week: Not on file Minutes per session: Not on file ??? Stress: Not on file Relationships ??? Social connections: Talks on phone: Not on file Gets together: Not on file Attends mormon service: Not on file Active member of [...] Zip: Phone: Occupation: Employee?: No OBJECTIVE: BP 116/65 (BP Location: Right Arm, BP Cuff Size: Adult Regular) Pulse 76 Ht 5' 4 (162.6 cm) Wt 198 lb 4.8 oz (65762 g) BMI 34.04 kg/m?? BMI: Estimated body mass index is 34.04 kg/m?? as calculated from the following: Height as of this encounter: 5' 4 (162.6 cm). Weight as of this encounter: 198 lb 4.8 oz (82971 g). GENERAL: Patient appears no apparent distress RESPIRATORY: Normal respiratory effort PSYCH: no overt evidence of anxiety or depression SKIN: no rashes on exposed skin NEURO: normal gait MUSCULOSKELETAL: no LE edema LABORATORY STUDIES: Recent [facility] Labs 11/20/2018 Vitamin B12 888 Potassium 3.4 (L) Hgb 12.7 Hct 38.5 PLT 329 10/18/2018 Vitamin D 33 10/16/2018 Ferritin 116 TSH 0.8 Results for NANCY PHILLIPS ( ) as of 01/22/2019 11:05 Ref. Range 01/08/2019 15:24 Calcium Latest Ref Range: 8.4 - 10.4 mg/dL 9.8 Prealbumin Latest Ref Range: 16.0 - 38.0 mg/dL 17.5 PARATHYROID HORMONE, INTACT Latest Ref Range: 10 - 100 pg/mL 80 Vitamin D,25 Hydroxy Latest Ref Range: 20 - 80 ng/mL 22 Iron Latest Ref Range: 50 - 170 ug/dL 49 (L) Transferrin Latest Ref Range: 180 - 382 mg/dL 211 IRON SATURATION Latest Ref Range: 20 - 55 % 19 (L) FERRITIN SERUM Latest Ref Range: 9 - 204 ng/mL 108 Iron Binding Capacity, Calculated Latest Ref Range: 250 - 450 ug/dL 264 Iron TIBC Interpretation Unknown see below ASSESSMENT: We will continue to treat the patient's obesity, obesity-associated medical conditions, and conditions exacerbated by or contributing to weight gain by aggressive management of weight: ICD-10-CM 1. Hypertension, unspecified type (HRC) I10 2. Status post bariatric surgery Z98.84 3. Vitamin D deficiency (HRC) E55.9 4. Iron deficiency (HRC) E61.1 PLAN: No laboratory studies needed today - patient had routine 6 month labs drawn after last visit. Patient will work on eating three meals per day, identifying triggers for pain after eating/frothing, try home youtube exercises Advised patient it is essential she schedules a visit with the dietitian. Return to the clinic in 3 months, sooner p.r.n. problems or concerns. Patient is especially encouraged to return to the clinic if failing to lose further weight. Total time 25 minutes, [id number] counseling time 15 minutes, spent discussing lifestyle interventions for management of weight post-surgery as above. Evelia Temple PA-C documented in this encounter Plan of Treatment Not on filedocumented as of this encounter Visit Diagnoses Diagnosis Hypertension, unspecified type (HRC) - P rimary Status post bariatric surgery Bariatric surgery status Vitamin D deficiency (HRC) Unspecified vitamin D deficiency Iron deficiency (HRC) Other disorders of iron metabolism documented in this encounter Care Teams Corn Grinder Relationship Specialty Start Date End Date Unassigned, Provider PCP - General 08/08/[address] [place] [phone] documented as of this encounter
--- OUTSIDE RECORDS SUMMARY | 2022-07-24 15:10 | XMS_ITS | Encounter Summary ---
:1985 Author Organization [facility] Address [address] [place] [address] Care Team Providers Name Role Phone Unassigned, Provider Primary Care Provider Unavailable Reason for Visit Reason Comments RESULTS, X-RAY Encounter Details Date Type Department Care Team Description 05/01/2019 Telephone [facility] & Mariajose Padilla R, RESULTS, X-RAY [facility] [address] [facility] [address] [facility] [address] [place] [address] [phone] Social History Tobacco Use Types Packs/Day Years [...] documented as of this encounter Progress Notes Evelia Padilla PA-C - 05/05/2019 7:31 AM CDT Addended by: EVELIA PADILLA on: 05/05/2019 07:31 AM Modules accepted: Orders Shawna Aguilar RN - 05/02/2019 3:56 PM CDT Addended by: SHAWNA AGUILAR on: 05/02/2019 03:56 PM Modules accepted: Orders documented in this encounter Nursing Notes Evelia Padilla PA-C - 05/02/2019 12:22 PM CDT UGI normal. Patient is not taking Omeprazole. Sent prescription for 90 days of Omeprazole to patient's desired pharmacy. If epigastric pain persists, will order an EGD for further evaluation. All questions were answered. Patient has follow up with Dr. Hauser in May 2019. Evelia Padilla PA-C - 05/02/2019 12:10 PM CDT No answer. Evelia Padilla PA-C - 05/01/2019 4:41 PM CDT Called to discuss recent UGI. Patient did not answer, left message. UGI unremarkable. Suggest Omeprazole daily with Zantac for breakthrough heartburn. UGI 04/24/2019: Narrative Performed by: PN RADIOLOGY COMPARISON: ??None. FINDINGS: Smash Fixer image of the abdomen shows a nonobstructive bowel gas pattern and postsurgical changes consistent with sleeve gastrectomy and cholecystectomy. The patient swallowed barium without difficulty. Normal, featureless appearance of the esophagus, with no abnormal filling defect or stricture. No gastroesophageal reflux occurred during the examination. A tiny/small hiatal hernia was seen once during the exam with provocative maneuvers. The remaining stomach is patent with no abnormal filling defect identified. The fold pattern is unremarkable. The duodenal sweep is unremarkable. Impression Performed by: PN RADIOLOGY IMPRESSION: 1. Postoperative changes consistent with sleeve gastrectomy. 2. Tiny/small hiatal hernia intermittently seen. 3. Otherwise unremarkable study. documented in this encounter Plan of Treatment Not on filedocumented as of this encounter Visit Diagnoses Not on filedocumented in this encounter Care Teams Funeral Director/Embalmer/Owner Relationship Specialty Start Date End Date Unassigned, Provider PCP - General 08/08/00 [address] [place] [address] documented as of this encounter
--- OUTSIDE RECORDS SUMMARY | 2022-07-24 15:10 | XMS_ITS | Clinical Summary ---
:1985 Author Organization [facility] Address [address] [place] [address] Care Team Providers Name Role Phone Annemarie Montiel M.D. Primary Care Provider [phone] Source Comments Patient records contain information from all sites at [facility]. For routine questions regarding patient records, call [phone] during business hours, M-F 8:00 AM - 5:00 PM Central Time. Record requests for emergency care only can be directed to [phone] at any time.[facility] Allergies Active Allergy Reactions Severity Noted Date Comments Adhesive Tape-Silicones Rash 07/23/2017 Animal Dander Hives 12/16/2019 Cigarette Smoke Hives 12/16/2019 House Dust Mite Rash 07/08/2008 Nsaids (Non-Steroidal Other (see comments) 09/04/2021 Gastric sleeve Anti-Inflammatory Drug) Medications Medication Sig Dispensed Refills Start Date End Date Status valACYclovir (VALTREX) TAKE ONE TABLET 15 tablet 1 03/26/2018 Active 1000 mg tablet BY MOUTH ONCE DAILY FOR 5 DAYS vcktngxygepw-Uk-qtxy-min Take 1 tablet by 0 Active erals (MULTIPLE VITAMIN, mouth daily. WOMENS) tablet cholecalciferol (VITAMIN Take 2,000 Units 0 Active D3) 2,000 Unit tablet by mouth daily. ferrous sulfate 325 mg Take 325 mg by 0 Active (65 mg iron) tablet mouth daily. biotin 5,000 mcg Take 10,000 mcg 0 Active tablet,disintegrating by mouth daily. cyanocobalamin (VITAMIN Take 2 tablets 60 each 11 10/09/2019 Active B12) 500 mcg SL (1,000 mcg tabletIndications: total) by mouth Surgery Bariatric Status daily. Post Additional Information Patient not taking. Reported on 10/06/2020 calcium carbonate-vitamin D3 Take 1 capsule by 0 Active (Calcium 600 with Vitamin D3) mouth daily. 600 mg(1,500mg) -400 unit capsule APPLE CIDER VINEGAR ORAL Take 1 tablet by 0 Active mouth daily. melatonin 5 mg tablet Take 5 mg by mouth at 0 Active bedtime as needed (sleep). hydrOXYzine (ATARAX) 10 mg Take 1 tab PO up to 3 60 tablet 3 0 03/30/2020 Active tablet times prn anxiety and 2-3 tabs at bedtime Additional Information Patient not taking. Reported on 10/06/2020 citalopram (CeleXA) 10 mg Take 1 tab PO daily 60 tablet 1 06/05 Active tabletIndications: Anxiety for 1 week and then Generalized Disorder, Depression increase to 2 tabs PO Major Recurrent (HCC) daily. Additional Information Patient not taking. Reported on 05/05/2021 PARoxetine (PAXIL) 40 mg Take half tab PO daily 0 Active tabletIndications: Depression for 2 weeks and then Major Recurrent (HCC), Anxiety discontinue. Generalized Disorder topiramate (TOPAMAX) 25 mg TAKE 1 TAB BY MOUTH 60 tablet 6 12/2019 Active tabletIndications: Migraine DAILY FOR 1 WEEK AND Headache THEN INCREASE TO 2 TABS BY MOUTH DAILY FOR MIGRAINE PREVENTION Additional Information Patient not taking. Reported on 10/06/2020 zolpidem (AMBIEN) 10 mg tablet Take 10 mg by mouth at 0 09/11/2020 Active bedtime. topiramate (TOPAMAX) 100 mg Take 100 mg by mouth daily. 0 08/30/2020 Active tablet LORazepam (ATIVAN) 0.5 mg tablet Take 0.5 mg by mouth as 0 06/17/2020 Active needed. buPROPion XL (WELLBUTRIN XL) 300 Take 300 mg by mouth daily. 0 07/28/2020 Active mg 24 hr tablet gtmpmya-Sz-jtvg-FA Take 1 tablet by mouth daily. 0 Active (VINATE ONE) 60 mg iron-1 mg per tablet Active Problems Problem Noted Date Excessive And Redundant Skin And Subcutaneous Tissue 0 04/11/2022 Overview: Added automatically from request for [facility] [id number] Panniculitis 11/07/2019 Overview: Added automatically from [facility] for [facility] [id number] Hypokalemia 11/25/2018 Last Assessment & Plan: Formatting of th is note might be different from the original. 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 Migraine Headache 08/23/2010 Resolved Problems Problem Noted Date Resolved Date Acquired Absence Of Both Cervix And Uterus 07/26/2017 03/27/2018 Section Delivery 11/17/2016 03/27/2018 Diabetes Mellitus Gestational 11/17/2016 03/27/2018 Discrepancy Uterine Size Date 10/30/2016 03/27/2018 With Personal History Preeclampsia Previous 201503/27/2018 Normal Not First 10/27/2016 Tattoo 01/03/2016 03/27/2018 Morbid Obesity Body Mass Index Greater Than Or Equal To 40 0 11/06/2014 03/25/2019 Adult Complication Preg Previous (C) Section Antepartum 0 04/23/2013 03/27/2018 Depressive Disorder 12/10/2009 03/27/2018 Endometriosis Pelvic Peritoneum 04/20/2007 03/27/20 18 Encounters Date Type Specialty Care Team Description 07/24/2022 Orders Only Annemarie Montiel M.D. 06/13/2022 [facility] Araseli SparksB.S. 05/19/2022 Clinical Communication [facility] insurance request Araseli SparksB.S. 05/18/2022 Procedure visit Neurology Marina Winter, Migraine Headache Ella, M.P.H. 05/16/2022 Clinical Communication Neurology Marina Winter M.D., M.P.H. from Last 3 Months Immunizations Name Administration Dates Next Due DT, Pediatric 04/19/1999 HepB (discontinued) adolescent/high 03/10/2004, 10/15/2003, 09/17/2003 risk Influenza Split 09/07/2014 Influenza TIV (IM) 08/16/2012 Influenza, Unspecified 07/17/2017, 08/24/2016, 08/06/2013, 08/15/2011, 08/23/2010, 11/30/2006 Tdap 02/26/2013, 01/17/2009 influenza vaccine quad 07/17/2017, 08/24/2016 (FLUZONE/FLUARIX) (6 months and older)(PF) Family History Medical History Relation Name Comments ADD Brother 1 Marcial Alcohol abuse Brother 1 Marcial Depression Brother 1 Marcial Drug abuse Brother 1 Marcial Drug abuse Brother 2 Depression Brother 3 ADD Brother 4 Coronary artery disease Father Foster Diabetes Grandfather Coronary artery disease Grandmother Diabetes Grandmother Hypertension Grandmother Alcohol abuse Maternal Grandfather Shimon Stroke Maternal Grandfather Shimon Transient ischemic attack Maternal Grandfather Shimon Anesthesia problems Maternal Grandmother Nanny Sleep apnea Maternal Grandmother Nanny Anxiety disorder Mother Kimberly Hypertension Mother Kimberly Migraines Mother Kimberly Obesity Mother Kimberly Sleep apnea Mother Kimberly ADD Son Toribio and Chito Relation Name Status Comments Brother 1 Marcial Brother 2 Brother 3 Brother 4 Father Foster Grandfather Grandmother Maternal Grandfather Shimon Maternal Grandmother Nanny Mother Kimberly Son Toribio and Chito Social History Tobacco Use Types Packs/Day Years [...] 03/29/2020 relatives? How often do you attend restoration or methodist Never 07/04/2019 services? 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 Last Filed Vital Signs Vital Sign Reading Time Taken Comments Blood Pressure 98/61 10/06/2020 9:17 AM FLIGHT ENGINEER MANAGER Pulse 82 10/06/2020 9:17 AM FLIGHT ENGINEER MANAGER Temperature 37 ??C (98.6 ??F) 12/17/2019 8:30 AM FLIGHT ENGINEER MANAGER Respiratory Rate 16 12/17/2019 8:30 AM FLIGHT ENGINEER MANAGER Oxygen Saturation 98% 12/17/2019 8:30 AM FLIGHT ENGINEER MANAGER Inhaled Oxygen Concentration - - Weight 75 kg (165 lb 5.5 oz) 10/06/2020 9:17 AM FLIGHT ENGINEER MANAGER Height 162.5 cm (5' 3.98) 10/06/2020 9:17 AM FLIGHT ENGINEER MANAGER Body Mass Index 28.4 10/06/2020 9:17 AM FLIGHT ENGINEER MANAGER Plan of Treatment Upcoming Encounters Date Type Specialty Care Team Description 08/17/2022 Procedure visit Neurology Marina Winter M.D., M.P.H. [address] [phone] (Wo rk) Scheduled Procedures Name Priority Associated Diagnoses Date/Time LIFT THIGH Excessive And Redundant Skin And Subcutaneous Tissue Health Maintenance Due Date Last Done Comments Depression Monitoring 10/10/2020 06/10/2020 (PHQ-9) COVID-19 Vaccine (4 - 12/13/2021 10/18/2021, 04/08/2021, Booster for Pfizer series) 03/18/2021 Influenza Vaccine (#1) 2022 08/03/2021, 07/17/2017, 07/17/2017, Additional history exists Lipid (Cholesterol) 09/06/2022 09/06/2017, 09/06/2017, Screening 07/17/2017 DTaP,Tdap,and Td Vaccines 02/26/2023 02/26/2013, 01/17/2009 , (4 - Td or Tdap) 04/19/1999 Hepatitis B Vaccines Completed 03/10/2004, 10/15/2003, 09/17/2003 Hepatitis C Screening Completed 10/18/2015 HIV Screening Completed 11/20/2018, 04/07/2016, 10/18/2015, Additional history exists Pneumococcal vaccine (0-64 Aged Out No lo nger eligible years) based on patient 's age to complete this topic Medical Devices Implanted Type Area Storeperson Device Shelf Model / Identifier Expiration Serial / Date Lot Conversions - Default Historical Implant Device Hardware Mouth Implanted: 11/06/2014 (Quantity not on file) e.g. pins/screws/ rods Description: Body Location - Mouth. both sides of jaw. Device Status Text - Hardware. Clp Hrzn Ti 6 Clp Sm Red - [id number] Hardware e.g. N/A: Teleflex [id number] 03/25/2024 [id number] / Implanted: Qty: 1 on 12/16/2019 by Clare Arizmendi M.B.BRodrigoSRodrigo at [facility] pins/screws/rods Abdomen [facility] / [id number] Procedures Procedure Name Priority Date/Time Associated Comments Diagnosis [place] CHEMODENERV FACIAL Routine 05/18/2022 1:53 PM Migraine Head ache Results for this TRIGEM NIDHI CDT procedure are i n the results section. from Last 3 Months Results [place] CHEMODENERV FACIAL TRIGEM NIDHI (05/18/2022 1:53 PM [...] Needle length: 0.5 in Injection site details Audio Video Technician / Procerus muscle(s): 5 units into the left ice skating instructor muscle, 5 units into the right ice skating instructor muscle and 5 units into the procerus [...] third republican. ?? Prior preventative medication trials: to piramate and amitriptyline Headache frequency Headache days per month: 4 days Severe headache days per month: 2 days POST-PROCEDURE DETAILS ?? Complications: no apparent complications Marina Winter M.D., M.P.H. NEUROLOGY ORDERABLES Performing Organization Address City/State/ZIP Code Phon e Number MMODAL MMODAL NA from Last 3 Months Insurance Payer Benefit Plan Subscriber ID Effective Dates Phone Address Type / Group [facility] [id number] 2021-Presen [phone] [address] Medicaid HMO t 5 [place] [address] [place] (Home) [place] [address] Advance Directives For more information, please contact: [phone] Latest Code Status on File Code Status Date Activated Date Inactivated Comments Full Code 12/16/2019 3:26 PM 12/17/2019 12:11 PM Full Code: Discussed Care Teams Dip Stand Loader Relationship Specialty Start Date End Date Annemarie Montiel M.D. PCP - General 04/19/17 [address] [place] [phone]
--- OUTSIDE RECORDS SUMMARY | 2022-07-24 15:10 | XMS_ITS | Encounter Summary ---
:1985 Author Organization [facility] Address [address] [place] [address] Care Team Providers Name Role Phone Annemarie Montiel M.D. Primary Care Provider [phone] Reason for Visit Reason Comments insurance request Encounter Details Date Type Department Care Team Description 05/19/2022 Clinical Communication Division of Plastic Liam white insurance request Surgery in [facility] [address] [facility] [address] [place] [phone] Social History Tobacco Use Types Packs/Day Years [...] 03/29/2020 relatives? How often do you attend shinto or orthodox Never 07/04/2019 services? 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 - 05/19/2022 3:32 PM CDT SUBJECTIVE CHIEF COMPLAINT / REASON FOR CALL insurance request Information Discussed I called Maria Alejandra to inform her that her insurance is requesting documentation that for her thigh surgery. They are requested documentation of any conservative treatment done in the prior months such asmedications and dressings for any rashes, wounds ro any other issues related to the excess skin on her thighs. I provided the fax number so she can send the documentation to [facility]. Maria Alejandra verbalized understanding. PLAN Disposition/Recommendation: patient will fax documentation Information/Education: patient/caller able to teach back Caller agreeable to plan of care: yes The following references were used: other PreD documented in this encounter Plan of Treatment Upcoming Encounters Date Type Specialty Care Team Description 08/17/2022 Procedure visit Neurology Marina Winter M.D., M.P.H. [address], [place] [phone] (Wo rk) Scheduled Procedures Name Priority Associated Diagnoses Date/Time LIFT THIGH Excessive And Redundant Skin And Subcutaneous Tissue documented as of this encounter Visit Diagnoses Not on filedocumented in this encounter Additional Health Concerns Assessment Noted Time PHQ-9 Depression Total Score: 12 06/10/2020 1:20 PM CD T documented as of this encounter Care Teams Press Operator Carbon Blocks Relationship Specialty Start Date End Date Annemarie Montiel M.D. PCP - General 04/19/17 [address], [place] [phone] documented as of this encounter
--- OUTSIDE RECORDS SUMMARY | 2022-07-24 15:10 | XMS_ITS | Encounter Summary ---
:1985 Author Organization [facility] Address [address] [place] [address] Care Team Providers Name Role Phone Annemarie Montiel M.D. Primary Care Provider [phone] Reason for Visit Reason Comments Insurance denial Encounter Details Date Type Department Care Team Description 06/13/2022 Clinical Communication Division of Plastic Liam white, Insurance denial Surgery in [place], [place] M.B.B.S. [address] [facility] [address] [place] [phone] Social History Tobacco Use Types Packs/Day Years [...] How often do you attend mandaeism or denominational Never 07/04/2019 services? Do you belong to [...] at Date Recorded Female 10/16/2018 10:[address] TELLER documented as of this encounter Miscellaneous Notes Telephone Encounter - Jorje Hernandez RSarah. - 06/13/2022 12:43 PM CDT SUBJECTIVE CHIEF COMPLAINT / REASON FOR CALL Insurance denial Information Discussed I called Maria Alejandra to inform that per her insurance the bilateral thigh lift was denied because her insurance considers this procedure cosmetic. Maria Alejandra then requested a cost estimate for the thigh lift and bilateral brachioplasty. The Cosmetic Surgery Package Quotation form ([id number]) was completed and sent to the [facility] Estimating office for processing. The Cosmetic Surgery Package Quotation will be mailed to the patient. Once a deposit has been made, surgery can be scheduled. Maria Alejandra verbalized understanding. PLAN Disposition/Recommendation: patient will call back if she wants to proceed with cosmetic procedure Information/Education: patient/caller able to teach back Caller agreeable to plan of care: yes The following references were used: other PreD documented in this encounter Plan of Treatment Upcoming Encounters Date Type Specialty Care Team Description 08/17/2022 Procedure visit Neurology Marina Winter M.D., M.P.H. [address] [place] [phone] (Wo rk) Scheduled Procedures Name Priority Associated Diagnoses Date/Time LIFT THIGH Excessive And Redundant Skin And Subcutaneous Tissue documented as of this encounter Visit Diagnoses Not on filedocumented in this encounter Additional Health Concerns Assessment Noted Time PHQ-9 Depression Total Score: 12 06/10/2020 1:20 PM CD T documented as of this encounter Care Teams Urgent Care Physician Assistant Relationship Specialty Start Date End Date Annemarie Montiel M.D. PCP - General 04/19/[address] [place] [phone] documented as of this encounter
--- OUTSIDE RECORDS SUMMARY | 2022-07-24 15:10 | XMS_ITS | Encounter Summary ---
:1985 Author Organization [facility] Address [address] [place] [address] Care Team Providers Name Role Phone Annemarie Montiel M.D. Primary Care Provider [phone] Reason for Referral Outpatient (Routine) - Closed Specialty Diagnoses / Procedures Referred By Contact Refer red To Contact Diagnoses Migraine Headache Marina Winter M.D., [facility] Procedures Botox for Chronic Migraine M.P.H. [address] [phone] Referral ID Status Reason Start Date Expiration Date Visits Requ ested Visits Authorized [id number] Closed 05/05/2021 05/05/2022 1 1 Outpatient (Routine) - Closed Specialty Diagnoses / Procedures Referred By Contact Refer red To Contact Diagnoses Migraine Headache Marina Winter M.D., [facility] Procedures Botox for chronic migraine M.P.[facility]. [address] [phone] Referral ID Status Reason Start Date Expiration Date Visits Requ ested Visits Authorized [id number] Closed 05/05/2021 05/05/2022 1 1 Reason for Visit Reason Comments Botulinum Toxin Injection Outpatient (Routine) - Closed Specialty Diagnoses / Procedures Referred By Contact Refer red To Contact Diagnoses Migraine Headache Marina Winter M.D., [facility] Procedures Botox for Chronic Migraine M.P.H. [address] [place] [phone] Referral ID Status Reason Start Date Expiration Date Visits Requ ested Visits Authorized [id number] Closed 02/02/2021 02/02/2022 1 1 Encounter Details Date Type Department Care Team Description 05/05/2021 Procedure visit Department of Neurology Marina Winter, [facility] jeevan Jaramillo, M.P.H. [address] [facility] [address] [place] [phone] Social History Tobacco Use Types Packs/Day Years [...] 03/29/2020 relatives? How often do you attend gnosticist or restorationist Never 07/04/2019 services? 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 - 05/05/2021 3:00 PM CDTAssociated Order(s): Botox for chronic migraine Post-Procedure Diagnose(s): Migraine Headache Botox for chronic migraine Date/Time: 05/05/2021 3:00 PM Performed by: Marina Winter M.D., M.P.H. Authorized by: Marina Winter M.D., M.P.H. PROCEDURE DETAILS Pre-procedure pain score: 5/10 Injection of: 100 Units onabotulinumtoxinA 100 unit; 50 Units onabotulinumtoxinA 100 unit Needle gauge: 30 Needle length: 0.5 in Injection site details Supervisor Wound / Procerus muscle(s): 5 units into the left catcher plug muscle, 5 units into the right catcher plug muscle and 5 units into the procerus [...] that is not covered by a third green party. Prior preventative medication trials: amitriptyline and topiramate Headache frequency Headache days per month: 5 days Severe headache days per month: 1 days POST-PROCEDURE DETAILS: Procedure completed successfully: yes Complications: no apparent complications documented in this encounter Plan of Treatment Upcoming Encounters Date Type Specialty Care Team Description 08/17/2022 Procedure visit Neurology Marina Winter M.D., [facility] [address] [place] [address] [phone] (Wo rk) Scheduled Orders Name Type Priority Associated Diagnoses Order S chedule Botox for Chronic Procedures Routine Migraine Headache Expec heaven: 08/05/2021, Migraine Expires: 2021 Scheduled Procedures Name Priority Associated Diagnoses Date/Time LIFT THIGH Excessive And Redundant Skin And Subcutaneous Tissue documented as of this encounter Procedures Procedure Name Priority Date/Time Associated Comments Diagnosis [place] CHEMODENERV FACIAL Routine 05/05/2021 3:00 PM Migraine Head ache Results for this TRIGEM NIDHI CDT procedure are i n the results section. documented in this encounter Results [place] CHEMODENERV FACIAL TRIGEM NIDHI (05/05/2021 3:00 PM CDT) Narrative MMODAL - 05/05/2021 3:00 PM CDT Marina Winter M.D., M.P.H. ? 05/05/2021 ??3:12 PM Botox for chronic migraine Date/Time: 05/05/2021 3:00 PM Performed by: Marina Winter M.D., M.P .H. Authorized by: Marina Winter M.D., M. P.H. PROCEDURE DETAILS ?? Pre-procedure pain score: 5/10 Injection of: 100 Units onabotulinumtoxi nA 100 unit; 50 Units onabotulinumtoxinA 100 unit Needle gauge: 30 Needle length: 0.5 in Injection site details Supervisor Wound / Procerus muscle(s): 5 units into the left catcher plug muscle, 5 units into the right catcher plug muscle and 5 units into the procerus [...] that is not covered by a third green party. ?? Prior preventative medication trials: am itriptyline and topiramate Headache frequency Headache days per month: 5 days Severe headache days per month: 1 [...] Dose Rate Site onabotulinumtoxinA injection 100 Given 05/05/2021 3:00 PM 100 Un its Units (BOTOX) CDT 100 Units, injection, One-Time Injection, Starting on Anneliese 05/05/21 at 1500, For 1 dose onabotulinumtoxinA injection 50 Units Given 05/05/2021 3:00 PM C DT 50 Units (BOTOX) 50 Units, injection, One-Time Injection, Starting on Anneliese 05/05/21 at 1500, For 1 dose documented in this encounter Additional Health Concerns Assessment Noted Time PHQ-9 Depression Total Score: 12 06/10/2020 1:20 PM CD T documented as of this encounter Care Teams Display Fabricator Relationship Specialty Start Date End Date Annemarie Montiel M.D. PCP - General 04/19/[address] [phone] documented as of this encounter
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
--- OUTSIDE RECORDS SUMMARY | 2022-07-24 15:10 | XMS_ITS | Encounter Summary ---
:1985 Author Organization [email or web address] Address [address] [place] [address] Care Team Providers Name Role Phone Unassigned, Provider Primary Care Provider Unavailable Reason for Referral Procedure/Equipment (Routine) - Incomplete Specialty Diagnoses / Procedures Referred By Contact Refer red To Contact Diagnoses Epigastric pain Evelia Temple PA-C Procedures [place] UGI W Esophagus [address] [facility] [address] [place], [place] [address] Referral ID Status Reason Start Date Expiration Date Visits V isits Requested Authorized [id number] Incomplete 04/09/2019 07/08/2020 1 1 Reason for Visit Reason Comments Sleeve Surg Followup Encounter Details Date Type Department Care Team Description 04/09/2019 Office Visit [facility] Evelia Temple Hypert ension, unspecified type (Primary Dx); Surgery & Weight ANASTACIO [facility] Epigastric pain; Center [address] [place] [address] Status post bariatric surger y; [address] [facility] [address] Vitamin D deficiency; [address] [place], [place] Iron deficiency; [place] [address] Class 1 obesity with body mass index (BM I) of 30.0 to 30.9 in adult, unspecified obesity type, unspecified whether serious comorbidity present [id number] [phone] Social History Tobacco Use Types Packs/Day Years [...] Sign Reading Time Taken Comments Blood Pressure 123/73 04/09/2019 10:53 AM CDT Pulse - - Temperature 28.9 ??C (84 ??F) 04/09/2019 10:53 AM CDT Respiratory Rate - - Oxygen Saturation - - Inhaled Oxygen Concentration - - Weight 79.3 kg (174 lb 12.8 oz) 04/09/2019 10:53 AM CDT Height 162.6 cm (5' 4) 04/09/2019 10:53 AM CDT Body Mass Index 30 04/09/2019 10:53 AM CDT documented in this encounter Patient Instructions Patient InstructionsEvelia Temple PA-C - 04/09/2019 11:00 AM CDT Call to schedule UGI UGI: [phone] documented in this encounter Progress Notes Evelia Temple PA-C - 04/09/2019 11:00 AM CDT Bariatric Surgery Post-Operative Follow Up DATE OF VISIT: 04/10/2019 SUBJECTIVE: This 34 y.o. year-old female with chronic medical problems including depression, anxiety presents for routine postoperative followup status post Laparoscopic Vertical Sleeve. Patient returns to the [facility] bariatric clinic for follow up. She had a vertical sleeve gastrectomy (using a 38 [place]serratian Bougie) and hiatal hernia repair at [facility] in [facility] by Dr. Noelle Akbar on 07/23/18. Patient's pre-operative weight was 294 lbs, BMI 50.4. Patient did have a CT scan of the abdomen about 2 weeks post-op due to abdominal pain and a absess vs seroma was seen to the abdominal wall, no evidence of a gastric sleeve leak. Patient states she moved back to [place] from [place] about 3 weeks after bariatric surgery. Patient met with the RD today and discussed eating habits. Patient is taking MVI, Vitamin B12, Vitamin D and Iron now. Patient's biggest concern remains her hair loss. She also reports decreased mood, but recently saw her PCP and her changed her medications. Nancy continues to note pain with eating and frothing if she eats most foods. She also does not tolerate ground beef well. Patient notes she tends to graze throughout the day and does not eat three set meals. Patient is not exercising. She has four young children at home. Bariatric Weight Tracking Weight History Highest Adult Weight: 299 lb Starting Weight: 215 lb 6.4 oz Current Weight: 174 lb 12.8 oz Height (in): 64 Weight Calculations Excess Weight: 87 lb 6.4 oz Current Weight Loss: 40 lb 9.6 oz Goal Weight: 128 lb Starting BMI: 37.69051733 Percent Exess Weight Loss: 46.5843229139513 Current BMI: 30.6157056 Percent Totoal Body Weight Loss: 18.4708221148018 Date of surgery 07/23/2018. The patient is eating 3 meals and 1 snacks per day. Food volume is 1/2 cup per meal. Does not tolerate hamburger, high carbohydrate foods Focuses on eating protein at most meals: Yes - patient does not think she eats enough protein Fluid intake averages <48 oz oz per day. Patient is not exercising Physical activity: nothing extra, just normal day to day stuff She reports taking MVI and B12 SL weekly, Vitamin D and Calcium supplements as prescribed. Patient denies alcohol use, carbonated beverages, and tobacco use. REVIEW OF SYSTEMS: Patient reports pain with eating. She denies other symptoms. PAST MEDICAL HISTORY: Past Medical History: Diagnosis Date ??? Anxiety ??? Depression ??? Heartburn ??? Obesity MEDICATIONS: Outpatient Medications as of 04/09/2019: Biotin 1000 MCG CHEW Take 1 Tablet by mouth daily. Disp: Rfl: calcium citrate-vitamin D (CALCITRATE PLUS D) 315-200 MG-UNIT tablet Take 2 Tablets by mouth two times a day. Disp: Rfl: cholecalciferol (VITAMIND3) 2000 units tablet Take 2,000 Units by mouth daily. Disp: Rfl: ferrous sulfate 325 (65 Fe) MG tablet Take 1 Tablet by mouth daily with breakfast. Disp: Rfl: multivitamin with minerals (CERTAVITE,MYADEC) tablet Take 1 Tablet by mouth daily. Disp: Rfl: venlafaxine (EFFEXOR) 75 MG tablet Take 75 mg by mouth two times a day. Disp: Rfl: vitamin B-12 (AKA: CYANOCOBALAMIN) 1000 MCG tablet Take 1,000 mcg by mouth once a week. Sublingual tablet weekly Disp: Rfl: No current facility-administered medications on file as of 04/09/2019. ADR/ALLERGIES: Patient has no known allergies. SOCIAL [...] file Gets together: Not on file Attends latter-day service: Not on file Active member of [...] Zip: Phone: Occupation: Employee?: No OBJECTIVE: BP 123/73 (BP Location: Left Arm, BP Cuff Size: Adult Regular) Temp (!) 84 ??F (28.9 ??C) Ht 5' 4 (162.6 cm) Wt 174 lb 12.8 oz (16773 g) BMI 30.00 kg/m?? BMI: Estimated body mass index is 30 kg/m?? as calculated from the following: Height as of this encounter: 5' 4 (162.6 cm). Weight as of this encounter: 174 lb 12.8 oz (54367 g). GENERAL: Patient appears no apparent distress RESPIRATORY: Normal respiratory effort PSYCH: no overt evidence of anxiety or depression SKIN: no rashes on exposed skin NEURO: normal gait MUSCULOSKELETAL: no LE edema LABORATORY STUDIES: Recent [facility] Labs 11/20/2018 Vitamin B12 888 [...] 264 Iron TIBC Interpretation Unknown see below PHQ-9 has moderately increased, with 0 on Question 9. Patient recently saw her primary care for medication changes and plans to continue follow up. ASSESSMENT: We will continue to treat the patient's obesity, obesity-associated medical conditions, and conditions exacerbated by or contributing to weight gain by aggressive management of weight: ICD-10-CM 1. Hypertension, unspecified type I10 2. Epigastric pain R10.13 FL UGI W Esophagus 3. Status post bariatric surgery Z98.84 4. Vitamin D deficiency E55.9 5. Iron deficiency E61.1 6. Class 1 obesity with body mass index (BMI) of 30.0 to 30.9 in adult, unspecified obesity type, unspecified whether serious comorbidity present E66.9 Z68.30 PLAN: No laboratory studies needed today - patient had routine 6 month labs drawn 3 months ago - will drawlabs at next visit. Patient will work on eating three meals per day, identifying triggers for pain after eating/frothing, try home youtube exercises Schedule UGI for evaluation of anatomical abnormalities of the gastric sleeve due to ongoing, persistent epigastric pain with eating. Return to the clinic in 3 months, sooner p.r.n. problems or concerns. Patient is especially encouraged to return to the clinic if failing to lose further weight. Total time 25 minutes, [id number] counseling time 15 minutes, spent discussing lifestyle interventions for management of weight post-surgery as above. Evelia Temple PA-C documented in this encounter Plan of Treatment Not on filedocumented as of this encounter Results FL UGI W Esophagus (04/24/2019 2:04 PM CDT) Anatomical Region Laterality Modality Chest, Abdomen, Neck Radio Fluoroscopy Specimen (Source) Anatomical Collection Method Collection Time Re ceived Time Location / / Volume Laterality 04/24/2019 1:30 PM CDT Impressions 04/24/2019 2:18 PM CDT IMPRESSION: 1. Postoperative changes consistent with sleeve gastrectomy. 2. Tiny/small hiatal hernia intermittent ly seen. 3. Otherwise unremarkable study. Narrative 04/24/2019 2:18 PM CDT COMPARISON: ??None. FINDINGS: Roads Supervisor image of the abdomen [facility] a nonobstructive bowel gas pattern and postsurgical changes consistent with sleeve gastrectomy and cholecystectomy. The patient swallowed barium without dif ficulty. Normal, featureless appearance of the esophagus, with no abnormal filling defect or stricture. No gastroesophageal reflux occurred during the examination . A tiny/small hiatal hernia was seen on ce during the exam with provocative maneuvers. The remaining stomach is patent with no abnormal filling defect identified. The fold pattern is unremarkable. The duodenal sweep is unremarkable. Procedure Note Stephon Cisneros MD - 04/24/2019For matting of this note might be different from the original. COMPARISON: None. FINDINGS: Roads Supervisor image of the abdomen [facility] a nonobstructive bowel gas pattern and postsurgical changes consistent with sleeve gastrectomy and cholecystectomy. The patient swallowed barium without dif ficulty. Normal, featureless appearance of the esophagus, with no abnormal filling defect or stricture. No gastroesophageal reflux occurred during the examination. A tiny/small hiatal hernia was seen once during the e xam with provocative maneuvers. The remaining stomach is patent with no abnormal filling defect identified. The fold pattern is unremarkable. The duodenal sweep is unremarkable. IMPRESSION IMPRESSION: 1. Postoperative changes consistent with sleeve gastrectomy. 2. Tiny/small hiatal hernia intermittent ly seen. 3. Otherwise unremarkable study. Evelia IGNACIO FL documented in this encounter Visit Diagnoses Diagnosis Hypertension, unspecified type (HRC) - P rimary Epigastric pain Abdominal pain, epigastric Status post bariatric surgery Bariatric surgery status Vitamin D deficiency (HRC) Unspecified vitamin D deficiency Iron deficiency (HRC) Other disorders of iron metabolism Class 1 obesity with body mass index (BM I) of 30.0 to 30.9 in adult, unspecified obesity type, unspecified whether seriou s comorbidity present (HRC) Epigastric pain Abdominal pain, epigastric documented in this encounter Care Teams Interactive Project Manager Relationship Specialty Start Date End Date Unassigned, Provider PCP - General 08/08/[address] [place] [phone] documented as of this encounter
--- OUTSIDE RECORDS SUMMARY | 2022-07-24 15:10 | XMS_ITS | Encounter Summary ---
:1985 Author Organization [facility] Address [address] [place] [address] Care Team Providers Name Role Phone Annemarie Montiel M.D. Primary Care Provider [phone] Reason for Visit Reason Comments Botulinum Toxin Injection Outpatient (Routine) - Authorized Specialty Diagnoses / Procedures Referred By Contact Refer red To Contact Diagnoses Migraine Headache Marina Winter M.D., [facility] Procedures Botox for Chronic Migraine M.P.H. [address] [phone] Referral ID Status Reason Start Date Expiration Date Visits V isits Requested Authorized [id number] Authorized 10/06/2020 10/06/2022 4 4 Encounter Details Date Type Department Care Team Description 02/16/2022 Procedure visit Department of Neurology Marina Winter, Migraine Headache in [facility] jeevan Jaramillo, M.P.H. [address] [facility] [address] [place] [phone] Social History Tobacco Use Types Packs/Day Years [...] 03/29/2020 relatives? How often do you attend druze or judaism Never 07/04/2019 services? 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 - 02/16/2022 1:45 PM CDTAssociated Order(s): Botox for Chronic Migraine Pre-Procedure Diagnose(s): Migraine Headache Post-Procedure Diagnose(s): Migraine Headache Botox for Chronic Migraine Date/Time: 02/16/2022 1:47 PM Performed by: Marina Winter M.D., M.P.H. Authorized by: Marina Winter M.D., M.P.H. PROCEDURE DETAILS Pre-procedure pain score: 0/10 Injection of: 100 Units onabotulinumtoxinA 100 unit; 50 Units onabotulinumtoxinA 100 unit Needle gauge: 30 Needle length: 0.5 in Injection site details Skin Peeling Machine Operator / Procerus muscle(s): 5 units into the left boot and saddle repair person muscle, 5 units into the right boot and saddle repair person muscle and 5 units into the procerus [...] that is not covered by a third libertarian. Prior preventative medication trials: amitriptyline and topiramate Headache frequency Headache days per month: 7 days Severe headache days per month: 2 days documented in this encounter Plan of Treatment Upcoming Encounters Date Type Specialty Care Team Description 08/17/2022 Procedure visit Neurology Marina Winter M.D., [facility] [address] [place] [phone] (Wo rk) Scheduled Procedures Name Priority Associated Diagnoses Date/Time LIFT THIGH Excessive And Redundant Skin And Subcutaneous Tissue documented as of this encounter Procedures Procedure Name Priority Date/Time Associated Comments Diagnosis [place] CHEMODENERV FACIAL Routine 02/16/2022 1:47 PM Migraine Head ache Results for this TRIGEM NIDHI CDT procedure are i n the results section. documented in this encounter Results [place] CHEMODENERV FACIAL TRIGEM NIDHI (02/16/2022 1:47 PM CDT) Narrative MMODAL - 02/16/2022 1:47 PM CDT Marina Winter M.D., M.P.H. ? 02/16/2022 ??1:58 PM Botox for Chronic Migraine Date/Time: 02/16/2022 1:47 PM Performed by: Marina Winter M.D., M.P .H. Authorized by: Marina Winter M.D., M. P.H. PROCEDURE DETAILS ?? Pre-procedure pain score: 0/10 Injection of: 100 Units onabotulinumtoxi nA 100 unit; 50 Units onabotulinumtoxinA 100 unit Needle gauge: 30 Needle length: 0.5 in Injection site details Skin Peeling Machine Operator / Procerus muscle(s): 5 units into the left boot and saddle repair person muscle, 5 units into the right boot and saddle repair person muscle and 5 units into the procerus [...] that is not covered by a third libertarian. ?? Prior preventative medication trials: am itriptyline and topiramate Headache frequency Headache days per month: 7 days Severe headache days per month: 2 days Marina Winter M.D., M.P.H. NEUROLOGY ORDERABLES Performing Organization Address City/State/ZIP Code Phon e Number MMODAL MMODAL NA documented in this encounter Visit Diagnoses Diagnosis Migraine Headache documented in this encounter Administered Medications Inactive Administered Medications - up to 3 most recent administrations Medication Order MAR Action Action Date Dose Rate Site onabotulinumtoxinA injection 100 Given 02/16/2022 1:47 PM 100 Un its Units (BOTOX) CDT 100 Units, injection, One-Time Injection, Starting on Anneliese 02/16/22 at 1347, For 1 dose onabotulinumtoxinA injection 50 Units Given 02/16/2022 1:47 PM C DT 50 Units (BOTOX) 50 Units, injection, One-Time Injection, Starting on Anneliese 02/16/22 at 1347, For 1 dose documented in this encounter Additional Health Concerns Assessment Noted Time PHQ-9 Depression Total Score: 12 06/10/2020 1:20 PM CD T documented as of this encounter Care Teams Straddle Buggy Operator Relationship Specialty Start Date End Date Annemarie Montiel M.D. PCP - General 04/19/17 [address] [place] [phone] documented as of this encounter
--- OUTSIDE RECORDS SUMMARY | 2022-07-24 15:10 | XMS_ITS | Encounter Summary ---
:1985 Author Organization [facility] Address [address] [place] [address] Care Team Providers Name Role Phone Annemarie Montiel M.D. Primary Care Provider [phone] Reason for Visit Appointment Request (Routine) - Closed Specialty Diagnoses / Procedures Referred By Contact Refer red To Contact Aesthetic Medicine Diagnoses Cosmetic Surgery For Unacceptable Appearance and Surgery Referral ID Status Reason Start Date Expiration Date Visits Requ ested Visits Authorized [id number] Closed 01/30/2022 01/30/2023 1 1 Encounter Details Date Type Department Care Team Description 04/11/2022 Comprehensive Visit Division of Plastic [facility] Excessive And Surgery in , [facility], [facility], [place] [facility] Subcutaneous Tissue [address] (Primary Dx) [place] [id number] [phone] Social History Tobacco Use Types Packs/Day Years [...] 03/29/2020 relatives? How often do you attend religious or holiness Never 07/04/2019 services? 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 - 04/11/2022 2:15 PM CDT Subjective Ms. Robins is a 37-year-old female who underwent bariatric surgery and later underwent panniculectomy on December 16, 2019. She presents to clinic today to discuss bilateral brachioplasty and bilateral medial thigh lifts. Ms. Robins has done an excellent job and maintaining a stable weight. She states that her weight has remained unchanged for the past two years. Her area of primary concern today is her arms. She states that bilateral arms feel quite heavy. She is bothered by the significant volume of redundant soft tissues over her bilateral upper arms. She states that this soft tissue results in early fatigue of bilateral shoulders. She notes significant limitations to normal daily activities as result of this weight. She recounts a recent trip to the mall where she was easily fatigued by even looking through racks of clothing. Her shoulders remained sore for several days following this trip. Ms. Robins also experiences significant difficulty with identifying clothing that can accommodate all of the soft tissue present on her bilateral upper arms. She notes significant irritation of the proximal arms bilaterally. This has resulted in formation of comedones. She inquires whether any surgical intervention can be performed to improve the symptoms. Ms. Robins's second area of concern is her bilateral legs. She notes significant bilateral medialthigh fullness following her weight loss. She endorses rubbing of her medial thighs. She also endorses persistent moisture of her medial thighs. Both of these things are worse in the summertime. Together, these result in irritation over her proximal medial thighs. She has endorsed skin changes to her proximal medial thighs that requires treatment with topical antibiotics. She continues to have difficulty identifying clothing that fits her legs given her skin redundancy. She is very interested in anysurgical options to address the symptoms. Objective Physical Examination Significant soft tissue redundancy over the posterior upper arms. There is minimal to no adipose tissue in the area of redundancy, primarily skin. The area of redundancy extends from the proximal upperarm (lateral to the axilla) to approximately 1-2 cm distal to the elbow. The left side is more redundant than the right. Bilateral medial thighs demonstrate severe soft tissue redundancy in both the vertical and horizontal plane. Even in repose, the soft tissue from each medial thigh is apposed to the contralateral leg. There is moisture over the proximal medial thighs. Irritation present over the proximal medial thighs. Impression/Report/Plan Patient Active Problem List Diagnosis Depression Major Recurrent (HCC) Anxiety Generalized Disorder Herpes Genitalis Hysterectomy Abdominal Status Post Migraine Headache Surgery Bariatric Status Post Hypokalemia Panniculitis Excessive And Redundant Skin And Subcutaneous Tissue Ms. Robins has done very well from a bariatric perspective following her weight loss surgery. Herweight remains stable and she continues to have her bariatric labs return within normal limits. Unfortunately, she experiences severe disability from her upper and lower extremity skin redundancy. She is limited in terms of activities that she is able to perform. She has also required medical treatment to address skin changes in her bilateral thighs. We believe that she would benefit dramatically from bilateral brachioplasty and bilateral medial thigh lift. We reviewed with Ms. Robins the proposed locations of the arm and leg surgical incisions. The armsurgical incision would likely be limited to the upper arm. It would be positioned along the posterior medial aspect of the arms to conceal the incision. The risks of the surgery, including poor wound healing, widened scars, lymphedema, and sensory changes were discussed at length. The leg surgical incisions would likely be carried out longitudinally over the medial aspect of the leg with an anteriorextension to address fullness in the vertical dimension. Similar complications were described for the bilateral medial thigh lifts. Postoperatively, Ms. Robins will require at least four weeks away from work. Activity will be limited to facilitate wound healing. Wraps will be placed over bilateral legs and arms from the distal extremity to the proximal extremity to control postoperative edema. Ms. Robins had all of her questions answered. Prior authorization will be submitted for both procedures. Following this, a surgical date will be identified. Addendum: - Conservative treatment tried for thighs includes topical antibiotics - Skin issues over the arms include comedones in the area of friction. Skin issues over the thighs include dermatitis, wound formation, maceration, and discomfort in the areas of friction documented in this encounter Plan of Treatment Upcoming Encounters Date Type Specialty Care Team Description 08/17/2022 Procedure visit Neurology Marina Winter M.D., M.P.H. [address] [place], [place] [phone] (Wo rk) Scheduled Procedures Name Priority Associated Diagnoses Date/Time LIFT THIGH Excessive And Redundant Skin And Subcutaneous Tissue documented as of this encounter Visit Diagnoses Diagnosis Excessive And Redundant Skin And Subcuta neous Tissue - Primary documented in this encounter Additional Health Concerns Assessment Noted Time PHQ-9 Depression Total Score: 12 06/10/2020 1:20 PM CD T documented as of this encounter Care Teams Concrete Polisher Relationship Specialty Start Date End Date Annemarie Montiel M.D. PCP - General 04/[address] [place] [address] documented as of this encounter
--- OUTSIDE RECORDS SUMMARY | 2022-07-24 15:10 | XMS_ITS | Encounter Summary ---
:1985 Author Organization [facility] Address [address] [place] [address] Care Team Providers Name Role Phone Unassigned, Provider Primary Care Provider Unavailable Reason for Visit Procedure/Equipment (Routine) - Incomplete Specialty Diagnoses / Procedures Referred By Contact Refer red To Contact Diagnoses Epigastric pain Evelia Temple PA-C Procedures [place] UGI W Esophagus [address] [facility] [address] [place], [place] [address] Referral ID Status Reason Start Date Expiration Date Visits V isits Requested Authorized [id number] Incomplete 04/09/2019 07/08/2020 1 1 Encounter Details Date Type Department Care Team Description 04/24/2019 Ancillary Procedure [place] [facility] Evelia Tepmle Epigastric pain [address] [facility] [place] [address] [address] [facility] [phone] [facility] [address] [place], [place] [phone] (Wo rk) Social History Tobacco Use Types [...] Name Priority Date/Time Associated Diagnosis Comme nts FL UGI W ESOPHAGUS Routine 04/24/2019 2:04 PM Epigastric pain Results for this CDT procedure are i n the results section. documented in this encounter Results FL UGI W Esophagus [...] 04/24/2019 2:18 PM CDT COMPARISON: ??None. FINDINGS: Data Modeler image of the abdomen vivek ws a nonobstructive bowel gas pattern and [...] different from the original. COMPARISON: None. FINDINGS: Data Modeler image of the abdomen [facility] ws a nonobstructive bowel gas pattern and [...] ly seen. 3. Otherwise unremarkable study. Evelia Temple PA-C RAD FL documented in this encounter Visit Diagnoses Diagnosis Epigastric pain Abdominal pain, epigastric documented in this encounter Administered Medications Inactive Administered Medications - up to 3 most recent administrations Medication Order MAR Action Action Date Dose Rate Site barium sulfate (aka E-Z-HD) 98 % Given 04/24/2019 2:30 PM CDT 13 5 mL oral solution 135 mL 135 mL, Oral, ONCE, On Anneliese 04/24/19 at 1430, For 1 dose, EXP. 09/26 barium sulfate (LIQUID E-Z-PAQUE) 60 % oral Given 04/24/2019 2:05 PM CDT 355 mL solution 355 mL 355 mL, Oral, ONCE, On Anneliese 04/24/19 at 1430, For 1 dose, EXP. 12/25 documented in this encounter Care Teams Width Stripper Relationship Specialty Start Date End Date Unassigned, Provider PCP - General 08/08/[address] [place] [address] documented as of this encounter
--- OUTSIDE RECORDS SUMMARY | 2022-07-24 15:10 | XMS_ITS | Encounter Summary ---
:1985 Author Organization [facility] Address [address] [place] [address] Care Team Providers Name Role Phone Annemarie Montiel M.D. Primary Care Provider [phone] Reason for Referral Specialty Diagnoses / Procedures Referred By Contact Refer red To Contact Annemarie Montiel M.D. [facility] Region [address] [place] [address] Referral ID Status Reason Start Date Expiration Date Visits Requ ested Visits Authorized Encounter Details Date Type Department Care Team Description 07/24/2022 Orders Only [facility] PCP [facility] Daniel Montiel M.D. [address], [place] [phone] (Wo rk) Social History [...] 03/29/2020 relatives? How often do you attend episcopal or temple Never 07/04/2019 services? 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 [address], [place] [phone] (Wo rk) Scheduled Procedures Name Priority Associated Diagnoses Date/Time LIFT THIGH Excessive And Redundant Skin And Subcutaneous Tissue Scheduled Referrals Name Type Priority Associated Order Schedule Diagnoses Covid immunization Outpatient Referral Routine Ex pected: office visit 07/24/2022 Immuno/Booster (Approximate) , Expires: 07/24/2023 documented as of this encounter Visit Diagnoses Not on filedocumented in this encounter Additional Health Concerns Assessment Noted Time PHQ-9 Depression Total Score: 12 06/10/2020 1:20 PM CD T documented as of this encounter Care Teams Risk Control Specialist Relationship Specialty Start Date End Date Annemarie Montiel M.D. PCP - General 04/19/17 [address], [place] [address] documented as of this encounter
--- OUTSIDE RECORDS SUMMARY | 2022-07-24 15:11 | XMS_ITS | Encounter Summary ---
:1985 Author Organization [facility] Address [address] [place] [address] Care Team Providers Name Role Phone Annemarie Montiel M.D. Primary Care Provider [phone] Encounter Details Date Type Department Care Team Description 09/08/2020 Clinical Communication Department of Maisha Song, Medicine, Porfirio Jaramillo [facility], in [facility] [address] [place], [place] [address] [place] [address] [place], [place] [phone] (Wo rk) [address] [phone] Social History Tobacco Use Types Packs/Day Years [...] 03/29/2020 relatives? How often do you attend jainism or mandaen Never 07/04/2019 services? 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 - 09/08/2020 4:46 PM AXMINSTER WEAVER SUBJECTIVE CHIEF COMPLAINT / REASON FOR CALL No chief complaint on file. Information Discussed Spoke with patient and received verbal permission to fax copy of her last appointment to [facility]. Patient was informed that she need to fill out an BRIANDA to have her medical information sent over. Patient agreed and asked for this to be mailed. An BRIANDA has been mailed to patient's home address. PLAN Disposition/Recommendation: recommended continue engagement in self-management activities Information/Education: patient/caller able to teach back Caller agreeable to plan of care: yes The following references were used: none NSTER WEAVER documented in this encounter Plan of Treatment Upcoming Encounters Date Type Specialty Care Team Description 08/17/2022 Procedure visit Neurology Marina Winter M.D., M.P.H. [address] [place] [phone] (Wo rk) Scheduled Procedures Name Priority Associated Diagnoses Date/Time LIFT THIGH Excessive And Redundant Skin And Subcutaneous Tissue documented as of this encounter Visit Diagnoses Not on filedocumented in this encounter Additional Health Concerns Assessment Noted Time PHQ-9 Depression Total Score: 12 06/10/2020 1:20 PM CD T documented as of this encounter Care Teams Harp Maker Relationship Specialty Start Date End Date Annemarie Montiel M.D. PCP - General 04/19/17 [address] [place] [address] documented as of this encounter
--- OUTSIDE RECORDS SUMMARY | 2022-07-24 15:11 | XMS_ITS | Encounter Summary ---
:1985 Author Organization [facility] Address [address] [place] [address] Care Team Providers Name Role Phone Annemarie Montiel M.D. Primary Care Provider [phone] Reason for Visit Reason Comments med review Outpatient (Routine) - Closed Specialty Diagnoses / Procedures Referred By Contact Refer red To Contact Video Medicine Diagnoses Anxiety Generalized Disorder Depression Major Recurrent (HCC) Annemarie Montiel M.D. [facility] Region [address] [place] [address] Referral ID Status Reason Start Date Expiration Date Visits Requ ested Visits Authorized [id number] Closed 03/22/2020 03/22/2021 1 1 Encounter Details Date Type Department Care Team Description 03/30/2020 Telemedicine Department of [facility] Annemarie Montiel, Anxiety Generalized Disorder; MedicinePorfirio M.D. Depression Major Recurrent (HCC) Clinic, in [facility] [address] [place], [place] [address] [facility] [address] [place], [place] [phone] (Wo rk) [address] [phone] Social History Tobacco Use Types Packs/Day Years [...] 03/29/2020 relatives? How often do you attend congregation or jewish Never 07/04/2019 services? 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 - 03/30/2020 5:15 PM CDT SUBJECTIVE CHIEF COMPLAINT / REASON FOR VISIT Anxiety HISTORY OF PRESENT ILLNESS Maria Alejandra Gomez is a 35 y.o. female who is evaluated for anxiety. Appointment conducted initially via video and converted to telephone(due to provider having to go to the hospital mid visit) by Annemarie Montiel M.D. in [facility] to the patient in her home. She has noted increased anxiety over the last few months. Was on Paxil 60 mg and Buspar 15 mg 2-3 times per day. Was feeling dizzy so stopped both. Restarted Paxil at 40 mg daily and did not get dizzy but when she restarted Buspar she felt dizzy again so has not taken that since. She finds most days she is anxious and irritable. Work is going well but when she comes home from work the messy house from the kids being there all day stress her out. The kids are demanding and struggling with their own ADHD behaviors. Pt's sleep is fair but wakes frequently. Mood is doing okay, denies worsening depression. Has had a lot of family stress--her mom, dad and brother's health have all been complicated in recent months. Answers for HPI/ROS submitted by the patient on 03/29/2020 Fatigue: Yes No eye issues: Yes No ENT issues: Yes Chest pain, pressure or tightness: Yes No respiratory issues: Yes Heartburn: Yes Nausea: Yes Constipation: Yes Muscle pain/stiffness: Yes Back pain/stiffness: Yes No skin issues: Yes Headache: Yes Change in sexual drive (decreased libido): Yes Excessive daytime sleepiness/tiredness: Yes Little interest or pleasure in doing things: Yes Feeling down, depressed, or hopeless: Yes Feeling nervous, anxious or on edge: Yes Not being able to stop or control worrying: Yes Bruises/bleeds easily: Yes No urinary/reproductive issues: Yes CURRENT MEDICATIONS Current Outpatient Medications Medication Sig Dispense Refill ??? APPLE CIDER VINEGAR ORAL Take 1 tablet by mouth daily. ??? biotin 5,000 mcg tablet,disintegrating Take 10,000 mcg by mouth daily. ??? calcium carbonate-vitamin D3 (Calcium 600 with Vitamin D3) 600 mg(1,500mg) - 400 unit capsule Take 1 capsule by mouth daily. ??? cholecalciferol (VITAMIN D3) 2,000 Unit tablet Take 2,000 Units by mouth daily. ??? cyanocobalamin (VITAMIN B12) 500 mcg SL tablet Take 2 tablets (1,000 mcg total) by mouth daily. 60 each 11 ??? ferrous sulfate 325 mg (65 mg iron) tablet Take 325 mg by mouth daily. ??? melatonin 5 mg tablet Take 5 mg by mouth at bedtime as needed (sleep). ??? lihudxszedro-Dj-zfik-minerals (MULTIPLE VITAMIN, WOMENS) tablet Take 1 tablet by mouth daily. ??? PARoxetine (PAXIL) 40 mg tablet Take 1.5 tablets (60 mg total) by mouth daily. (Patient taking differently: Take 40 mg by mouth daily. ) 45 tablet 11 ??? sennosides (senna) 8.6 mg tablet Take 1 tablet (8.6 mg total) by mouth daily. 30 tablet 11 ??? valACYclovir (VALTREX) 1000 mg tablet TAKE ONE TABLET BY MOUTH ONCE DAILY FOR 5 DAYS (Patient taking differently: TAKE ONE TABLET BY MOUTH ONCE DAILY FOR 5 DAYS PRN) 15 tablet 1 ??? zolpidem (AMBIEN) 5 mg tablet Take 1 tablet (5 mg total) by mouth at bedtime as needed for sleep. 10 tablet 1 No current facility-administered medications for this visit. ALLERGIES/CONTRAINDICATIONS Allergies Allergen Reactions ??? Adhesive Tape-Silicones Rash ??? Animal Dander Hives ??? Cigarette Smoke Hives ??? House Dust Mite Rash MEDICAL HISTORY Past Medical History: Diagnosis Date ??? Anxiety Generalized Disorder ??? Concussion Loss Of Consciousness Unspecified Duration Initial ??? Depression Major ??? Gallbladder Disorder ??? Headache ??? Hypertension NOS with ??? Migraine Headache ??? Morbid Obesity Body Mass Index Greater Than Or Equal To 40 Adult (HCC) status post gastric bypass ??? Post Operative Nausea/Vomiting SURGICAL HISTORY Past Surgical History: Procedure Laterality Date ??? BARIATRIC SURGERY ??? BILATERAL TUBAL LIGATION 12/01/2016 ??? SECTION 07/02/2005 ??? SECTION 02/19/2011 ??? SECTION 05/09/2013 ??? SECTION 12/01/2016 ??? SECTION 4 ??? CHOLECYSTECTOMY 11/29/2005 ??? GALLBLADDER SURGERY ??? HERNIA REPAIR ??? LAPAROTOMY EXPLORATORY 2009 peritoneal adhesion divided ??? MANDIBLE SURGERY Bilateral ??? OTHER SURGICAL HISTORY Abdominal skin removal ??? PANNICULECTOMY N/A 12/16/2019 Procedure: PANNICULECTOMY, Possible Lily de lis.; Surgeon: Clare Deleon M.B.BShan; Location: [facility] ??? TONSILLECTOMY ??? TONSILLECTOMY AND ADENOIDECTOMY 1995 ??? TOTAL ABDOMINAL HYSTERECTOMY 07/25/2017 with panniculectomy OBJECTIVE Mental: Pleasant mood and affect. Endorses anxious thoughts. Normal judgement and insight. Neuro: Cranial nerves II-XII grossly intact. No focal deficit. ASSESSMENT / PLAN 1. Anxiety Generalized Disorder--now with additional situational stressors 2. Depression Major Recurrent (HCC) Plan: -Continue Paxil 40 mg once daily -Start Hydroxyzine 10 mg, 1 tab PO TID prn with 2-3 tabs at [facility] - Continue to work through mindfulness and stress management -Medical opinion form renewed today, limit work to 20 hours per week. Total time spent 25 minutes with 25 minutes counseling and coordination of care. Nicki Montiel MD [facility] documented in this encounter Plan of Treatment Upcoming Encounters Date Type Specialty Care Team Description 08/17/2022 Procedure visit Neurology Marina Winter M.D., M.P.H. [address] [place], [place] [phone] (Wo rk) Scheduled Procedures Name Priority Associated Diagnoses Date/Time LIFT THIGH Excessive And Redundant Skin And Subcutaneous Tissue documented as of this encounter Visit Diagnoses Diagnosis Anxiety Generalized Disorder Depression Major Recurrent (HCC) documented in this encounter Additional Health Concerns Assessment Noted Time PHQ-9 Depression Total Score: 15 2020 3:09 PM CD T documented as of this encounter Care Teams Square Cutter Relationship Specialty Start Date End Date Annemarie Montiel M.D. PCP - General 04/19/[address] [address] documented as of this encounter
--- OUTSIDE RECORDS SUMMARY | 2022-07-24 15:11 | XMS_ITS | Encounter Summary ---
:1985 Author Organization [facility] Address [address] [place] [address] Care Team Providers Name Role Phone Annemarie Montiel M.D. Primary Care Provider [phone] Encounter Details Date Type Department Care Team Description 07/06/2020 Orders Only Pharmacy Prior Auth RO Annemarie Montiel M.D. [phone] [place], [place] [phone] (Wo rk) Social History [...] 03/29/2020 relatives? How often do you attend jain or oriental orthodox Never 07/04/2019 services? 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 [address] [place], [place] [phone] (Wo rk) Scheduled Procedures Name Priority Associated Diagnoses Date/Time LIFT THIGH Excessive And Redundant Skin And Subcutaneous Tissue documented as of this encounter Visit Diagnoses Not on filedocumented in this encounter Additional Health Concerns Assessment Noted Time PHQ-9 Depression Total Score: 12 06/10/2020 1:20 PM CD T documented as of this encounter Care Teams Company Truck Driver Relationship Specialty Start Date End Date Annemarie Montiel M.D. PCP - General 04/[address] [place] [address] documented as of this encounter
--- OUTSIDE RECORDS SUMMARY | 2022-07-24 15:11 | XMS_ITS | Encounter Summary ---
:1985 Author Organization [facility] Address [address] [place] [address] Care Team Providers Name Role Phone Annemarie Montiel M.D. Primary Care Provider [phone] Encounter Details Date Type Department Care Team Description 12/30/2019 Ancillary Procedure Department of Plastic and Reconstructive [...] 03/29/2020 relatives? How often do you attend oriental orthodox or mandaeism Never 07/04/2019 services? 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 [address] [phone] (Wo rk) Scheduled Procedures Name Priority Associated Diagnoses Date/Time LIFT THIGH Excessive And Redundant Skin And Subcutaneous Tissue documented as of this encounter Procedures Procedure Name Priority Date/Time Associated Diagnosis Comme nts PLASTIC AND RECON Routine 12/30/2019 12:00 PM Res ults for this SURGERY IMAGE EXAM PORCELAIN FINISH SPRAYER procedure are in the results section. documented in this encounter Results Breast Breast Reconstruction-Plastic And Recon Surgery Image Exam (12/30/2019 12:00 PM PORCELAIN FINISH SPRAYER) Specimen (Source) Anatomical Location Collection Method / Collectio n Time Received Time / Laterality Volume Narrative IIMS - 12/30/2019 4:09 PM PORCELAIN FINISH SPRAYER This order has been created and auto-finalized [...] Assessment Noted Time PHQ-9 Depression Total Score: 19 10/09/2019 11:[address] documented as of this encounter Care Teams Flavor Extractor Relationship Specialty Start Date End Date Annemarie Montiel M.D. PCP - General 04/19/17 [address] [place] [address] documented as of this encounter
--- OUTSIDE RECORDS SUMMARY | 2022-07-24 15:11 | XMS_ITS | Encounter Summary ---
:1985 Author Organization [facility] Address [address] [place] [address] Care Team Providers Name Role Phone Annemarie Montiel M.D. Primary Care Provider [phone] Encounter Details Date Type Department Care Team Description 12/24/2019 Ancillary Procedure Department of Plastic and Reconstructive [...] 03/29/2020 relatives? How often do you attend episcopalian or adventism Never 07/04/2019 services? 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 [address] [phone] (Wo rk) Scheduled Procedures Name Priority Associated Diagnoses Date/Time LIFT THIGH Excessive And Redundant Skin And Subcutaneous Tissue documented as of this encounter Procedures Procedure Name Priority Date/Time Associated Diagnosis Comme nts PLASTIC AND RECON Routine 12/24/2019 12:00 PM Res ults for this SURGERY IMAGE EXAM TERRITORY SUPERVISOR procedure are in the results section. documented in this encounter Results Abdomen Panniculectomy-Plastic And Recon Surgery Image Exam (12/24/2019 12:00 PM TERRITORY SUPERVISOR) Specimen (Source) Anatomical Collection Method Collection Time Re ceived Time Location / / Volume Laterality 12/24/2019 12:00 PM TERRITORY SUPERVISOR Narrative IIMS - 12/24/2019 3:48 PM TERRITORY SUPERVISOR This order has been created and auto-finalized [...] documented as of this encounter Care Teams Picker Machine Operator Relationship Specialty Start Date End Date Annemarie Montiel M.D. PCP - General 04/19/[address] [place] [address] documented as of this encounter
--- OUTSIDE RECORDS SUMMARY | 2022-07-24 15:11 | XMS_ITS | Encounter Summary ---
:1985 Author Organization [facility] Address [address] [place] [address] Care Team Providers Name Role Phone Annemarie Montiel M.D. Primary Care Provider [phone] Encounter Details Date Type Department Care Team Description 04/07/2020 Clinical Communication Department of Maisha Song, Medicine, Porfirio Jaramillo [facility], in [facility] [address] [place], [place] [address] [place] [address] [place], [place] [phone] (Wo rk) [address] [phone] Social History Tobacco Use Types Packs/Day Years [...] 03/29/2020 relatives? How often do you attend muslim or scientologist Never 07/04/2019 services? 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 - 04/14/2020 9:51 AM CDT Informed patient that form has been mailed. Telephone Encounter - Johny Ramos - 04/13/2020 9:28 AM CDT Patient calling in and is wondering if this paper work could be picked up at the clinic today? Please call the patient back [phone]. She is needing to get this paper work to her Employer Telephone Encounter - Chhaya Mccray LRodrigoPRodrigoNRodrigo - 04/12/2020 10:43 AM CDT Paperwork sent in mail to Maria Alejandra and sent to scanning. Telephone Encounter - Annemarie Montiel M.D. - 04/07/2020 8:41 PM CDT Patient seen for virtual visit last week. She needed an updated Medical opinion form. I have completed the medical opinion form and placed in the nurse box on [address] Please mail to pt and send a copy to scanning. Thank you. Nicki Montiel MD Department of Family Medicine [facility] documented in this encounter Plan of Treatment Upcoming Encounters Date Type Specialty Care Team Description 08/17/2022 Procedure visit Neurology Marina Winter M.D., M.P.H. [address] [place], [place] [phone] (Wo rk) Scheduled Procedures Name Priority Associated Diagnoses Date/Time LIFT THIGH Excessive And Redundant Skin And Subcutaneous Tissue documented as of this encounter Visit Diagnoses Not on filedocumented in this encounter Additional Health Concerns Assessment Noted Time PHQ-9 Depression Total Score: 15 2020 3:09 PM CD T documented as of this encounter Care Teams Paramedical Aide Relationship Specialty Start Date End Date Annemarie Montiel M.D. PCP - General 04/19/[address] [address] documented as of this encounter
--- OUTSIDE RECORDS SUMMARY | 2022-07-24 15:11 | XMS_ITS | Encounter Summary ---
:1985 Author Organization [facility] Address [address] [place] [address] Care Team Providers Name Role Phone Annemarie Montiel M.D. Primary Care Provider [phone] Reason for Visit Appointment Request (Routine) - Closed Specialty Diagnoses / Procedures Referred By Contact Refer red To Contact Plastic Surgery Diagnoses Follow Up Examination Postoperative Visit Referral ID Status Reason Start Date Expiration Date Visits Requ ested Visits Authorized [id number] Closed 12/23/2019 12/22/2020 1 1 Encounter Details Date Type Department Care Team Description 12/24/2019 Office Visit Division of Plastic Zukanovic, Follow U p Examination Surgery in [place], Melanie, METALLURGICAL SPECIALIST, Posto perative Visit [place] C.N.P., D.N.P. (Primary Dx) [address] [facility] [address] [place] [address] [phone] Social History Tobacco Use Types Packs/Day Years [...] 03/29/2020 relatives? How often do you attend zoroastrianism or holiness Never 07/04/2019 services? 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 - 12/24/2019 11:00 AM CST SUBJECTIVE CHIEF COMPLAINT / REASON FOR VISIT Service of Dr. Deleon ([phone]) Maria Alejandra Gomez is a 34 y.o. female presenting today for routine postop visit HISTORY OF PRESENT ILLNESS #1 Status post panniculectomy, with Dr. Deleon, 12/16/2019 The patient is a pleasant 34-year-old female coming in to clinic today routine postop visit. The patient has a history of panniculitis. Patient was taken to the operating room on 12/16/[address] Deleon and underwent panniculectomy. Today the patient is post op day 8. Surgical pathology reveals skin and adipose tissue. She states that her pain fluctuates with activities, she currently has 7 kids at home and states that she is doing every date chores other than laundry. She has not needed any pain medication for the last 2 days and prior to this she was taking Tylenol. She has 2 BIANCA drains. BIANCA drain # 1, from the left side, output has been 48/40/50 mL per day. BIANCA drain# 2, from the right side, output has been 20/15/20 mL per day. Drainage is serosanguineous bilaterally. She has changing the Biopatch disc and Tegaderm dressing every 3 days. She reports some irritation at the umbilical incision. She has follow up scheduled on 12/30 for drain removal. OBJECTIVE PHYSICAL EXAM Constitutional She appears well-developed and well-nourished. No distress. Abdomen Umbilical incision is C/D/I with absorbable sutures. There is some irritation at the sutures but theerythema does not spread beyond this region. Lower abdominal transverse incision is C/D/I with papertape. ASSESSMENT / PLAN #1 Status post panniculectomy, with Dr. Deleon, 12/16/2019 It was a pleasure seeing the patient in clinic today. She is doing well postoperatively. She has some irritation at the umbilical incision, I believe this is related to the sutures rubbing on each other when she is sitting and the skin is folded. The redness that is not spread beyond this area therefore I do not believe this is an infection but simply and irritation. I will have her applyantibiotic ointment to this area daily. If the redness spreads she will notify us immediately. We removed BIANCA drain # 2, and changed the dressing for BIANCA drain # 1. She will continue with monitoring the output. I recommend that she wear the abdominal binder when she is up and moving around. We discussed the importance of decreasing her activity, I would recommend that she walk around the house and rest a bit more often. I do not want her lifting, pushing, or pulling, anything greater than 15 lb. She will be off of work until January 12. When she returns to work on January 12 she will be on activity restrictions until January 26. At January 26 she may return to work full days with no activity restrictions. Photos were obtained for record today. She has follow-up on December 30 for drain removal, I informed her that if her drain is not less than 30 cc for 2 days in a row, she will need to push that appointment out further. CASE MANAGER documented in this encounter Plan of Treatment Upcoming Encounters Date Type Specialty Care Team Description 08/17/2022 Procedure visit Neurology Marina Winter M.D., M.P.H. [address], [place] [phone] (Wo rk) Scheduled Procedures Name Priority Associated Diagnoses Date/Time LIFT THIGH Excessive And Redundant Skin And Subcutaneous Tissue documented as of this encounter Visit Diagnoses Diagnosis Follow Up Examination Postoperative Visi t - Primary documented in this encounter Additional Health Concerns Assessment Noted Time PHQ-9 Depression Total Score: 19 10/09/2019 11:[address] documented as of this encounter Care Teams Home Service Director Relationship Specialty Start Date End Date Annemarie Montiel M.D. PCP - General 04/19/17 [address] [place] [address] documented as of this encounter
--- OUTSIDE RECORDS SUMMARY | 2022-07-24 15:11 | XMS_ITS | Encounter Summary ---
:1985 Author Organization [facility] Address [address] [place] [address] Care Team Providers Name Role Phone Annemarie Montiel M.D. Primary Care Provider [phone] Reason for Visit Outpatient (Routine) - Closed Specialty Diagnoses / Procedures Referred By Contact Refer red To Contact Plastic Surgery Leyla River P.A.-C., [facility] [address] [facility] [place], [place] [address] Referral ID Status Reason Start Date Expiration Date Visits Requ ested Visits Authorized [id number] Closed 12/30/2019 12/29/2020 1 1 Encounter Details Date Type Department Care Team Description 03/09/2020 Virtual Visit Division of Plastic Ishmael Deleon; Surgery in [place], Surendra SparksSRodrigo Surgery Bariatric Status Post [place] [address] [facility] [place] [address] [place] [phone] [phone] Social History Tobacco Use Types Packs/Day Years [...] How often do you attend mandaeism or synagogue Never 07/04/2019 services? 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 - 03/09/2020 11:15 AM CDT SUBJECTIVE CHIEF COMPLAINT / REASON FOR VISIT Maria Alejandra Gomez is a 35 y.o. female who presents for evaluation of No chief complaint on file.. HISTORY OF PRESENT ILLNESS Mrs. Gomez this 35 old female who is status post panniculectomy. She states that she has been doing well. She is overall happy with the results. She does state that when she lays flat she feels much more flatter and when she stands up she feels the some soft tissue redundancy on the upper abdomen. Her weight has been stable. She has not had any wound healing problems postoperatively. The following portions of the patient's history were reviewed and updated as appropriate: allergies,current medications, family history, medical history, social history, surgical history and problem list. Social History Tobacco Use Smoking status: Never Smoker Smokeless tobacco: Never Used Past Medical History: Diagnosis Date ??? Anxiety Generalized Disorder ??? Concussion Loss Of Consciousness Unspecified Duration Initial ??? Depression Major ??? Gallbladder Disorder ??? Headache ??? Hypertension NOS with ??? Migraine Headache ??? Morbid Obesity Body Mass Index Greater Than Or Equal To 40 Adult (HCC) status post gastric bypass ??? Post Operative Nausea/Vomiting OBJECTIVE PHYSICAL EXAM Physical Exam Deferred as is a phone visit. I have had the chance to review her most recent photographs from her last follow-up visit in clinic. ASSESSMENT / PLAN #1 s/p panniculectomy Mrs. lemus appears to be healing well from a panniculectomy. She has healed well with no wound healing complications. Her umbilicus appears to be viable. Patient is overall happy with the aesthetics ofher procedure. She does state that when she stands up she feels that maybe she has some laxity on her upper abdomen. I discussed with her that at the limitations of a panniculectomy in comparison to formal abdominal plasty were we would tighten tightening underlying musculature. I do not think doing ahuge a vertical component would have done much to improve the results. She has some soft tissue excess in her lateral flanks on both sides. This could potentially because improved by cosmetic liposuction. I discussed with her that any tightening of underlying musculature as well as liposuction would be considered cosmetic and hence not covered by insurance. I think she is overall happy with her results and does not seek any revisional procedures at this time. She will follow up with me as needed. documented in this encounter Plan of Treatment Upcoming Encounters Date Type Specialty Care Team Description 08/17/2022 Procedure visit Neurology Marina Winter M.D., M.P.H. [address], [place] [phone] (Wo rk) Scheduled Procedures Name Priority Associated Diagnoses Date/Time LIFT THIGH Excessive And Redundant Skin And Subcutaneous Tissue documented as of this encounter Visit Diagnoses Diagnosis Panniculitis Surgery Bariatric Status Post documented in this encounter Additional Health Concerns Assessment Noted Time PHQ-9 Depression Total Score: 15 2020 3:09 PM CD T documented as of this encounter Care Teams Process Operator Relationship Specialty Start Date End Date Annemarie Montiel M.D. PCP - General 04/19/17 [address], [place] [address] documented as of this encounter
--- OUTSIDE RECORDS SUMMARY | 2022-07-24 15:11 | XMS_ITS | Encounter Summary ---
:1985 Author Organization [facility] Address [address] [place] [address] Care Team Providers Name Role Phone Annemarie Montiel M.D. Primary Care Provider [phone] Encounter Details Date Type Department Care Team Description 12/16/2019 Ancillary Procedure Department of Plastic and Reconstructive [...] How often do you attend protestant or sabianism Never 07/04/2019 services? 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 [address] [phone] (Wo rk) Scheduled Procedures Name Priority Associated Diagnoses Date/Time LIFT THIGH Excessive And Redundant Skin And Subcutaneous Tissue documented as of this encounter Procedures Procedure Name Priority Date/Time Associated Diagnosis Comme nts PLASTIC AND RECON Routine 12/16/2019 12:05 PM Res ults for this SURGERY IMAGE EXAM ENVIRONMENTAL HEALTH TECHNICIAN procedure are in the results section. documented in this encounter Results Specimen-Plastic And Recon Surgery Image Exam (12/16/2019 12:05 PM ENVIRONMENTAL HEALTH TECHNICIAN) Specimen (Source) Anatomical Location Collection Method / Collectio n Time Received Time / Laterality Volume Narrative IIMS - 12/17/2019 4:33 PM ENVIRONMENTAL HEALTH TECHNICIAN This order has been created and auto-finalized [...] documented as of this encounter Care Teams Clinical Pharmacologist Relationship Specialty Start Date End Date Annemarie Montiel M.D. PCP - General 04/19/17 [address] [place] [address] documented as of this encounter
--- OUTSIDE RECORDS SUMMARY | 2022-07-24 15:11 | XMS_ITS | Encounter Summary ---
:1985 Author Organization [facility] Address [address] [place] [address] Care Team Providers Name Role Phone Annemarie Montiel M.D. Primary Care Provider [phone] Reason for Referral Outpatient (Routine) - Authorized Specialty Diagnoses / Procedures Referred By Contact Refer red To Contact Diagnoses Migraine Headache Marina Winter M.D., [facility] Procedures Botox for Chronic Migraine M.P.H. [address] [place] [address] Referral ID Status Reason Start Date Expiration Date Visits V isits Requested Authorized [id number] Authorized 10/06/2020 10/06/2022 4 4 F RADIOLOGY Reason for Visit Reason Comments Migraine Ref. Dr. [facility] Appointment Request (Routine) - Closed Specialty Diagnoses / Procedures Referred By Contact Refer red To Contact Neurology Referral ID Status Reason Start Date Expiration Date Visits Requ ested Visits Authorized [id number] Closed 09/09/2020 09/09/2021 1 1 Encounter Details Date Type Department Care Team Description 10/06/2020 Comprehensive Visit Department of Marina Winter Migrwm e Headache Neurology in [place], (Primary Dx) [place], [place] M.P.H. [address] [facility] [address] [place], [place] [phone] [address] Social History Tobacco Use Types Packs/Day Years [...] 03/29/2020 relatives? How often do you attend yazidism or buddhism Never 07/04/2019 services? 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 - 10/06/2020 9:30 AM CST SUBJECTIVE CHIEF COMPLAINT / REASON FOR VISIT Maria Alejandra Gomez is a 35 y.o. female who presents for evaluation of Migraine (Ref. Dr. [facility]). HISTORY OF PRESENT ILLNESS This 35-year-old patient presents for evaluation of chronic migraines that she says started at age [age]. She has a strong family history of migraine including her mother and several of her children. She characterizes the pain as being pounding and sharp and is generally in the center of her head on the top. These are not accompanied by any premonition or auras that they are about to develop. She doeshave photophobia and phonophobia. She complains of a sense of agitation with these headaches and they are exacerbated or precipitated by doing housework, bending over or straining, reading, too little sleep, stress, fatigue. She says these headaches can go for four days for untreated and she may have to go to the emergency department where she gets some shots. She believe she might have been on prophylactic medicine as a child but she cannot recall any of those medicines and since she has been adultshe says topiramate at the current dose of 100 mg once per day, this is not what the prescribing info rmation says, it is all she is taking. She says when she goes the emergency department she will get Demerol and Benadryl and tramadol. She took Imitrex injections but this caused her to have shortness of breath and chest tightness. She doesnot have anything for abortive therapy other than Tylenol. She has also had bariatric surgery and this eliminates nonsteroidal anti-inflammatory medicines. She has never had CGRP medicines nor Botox injections. We discussed both of those at today's visit I explained that other tripped hands would be excluded based on her reaction to the sumatriptan. She reports today she has a mild headache approximately 4/10. Past Medical History: Diagnosis Date ??? Anxiety Generalized Disorder ??? Concussion Loss Of Consciousness Unspecified Duration Initial ??? Depression Major ??? Gallbladder Disorder ??? Headache Unspecified ??? Hypertension NOS with ??? Migraine Headache ??? Morbid Obesity Body Mass Index Greater Than Or Equal To 40 Adult (HCC) status post gastric bypass ??? Post Operative Nausea/Vomiting Past Surgical History: Procedure Laterality Date ??? BARIATRIC SURGERY ??? BILATERAL TUBAL LIGATION 12/01/2016 ??? SECTION 07/02/2005 ??? SECTION 02/19/2011 ??? SECTION 05/09/2013 ??? SECTION 12/01/2016 ??? SECTION 4 ??? CHOLECYSTECTOMY 11/29/2005 ??? GALLBLADDER SURGERY ??? HERNIA REPAIR ??? LAPAROTOMY EXPLORATORY 2009 peritoneal adhesion divided ??? MANDIBLE SURGERY Bilateral ??? OTHER SURGICAL HISTORY Abdominal skin removal ??? PANNICULECTOMY N/A 12/16/2019 Procedure: PANNICULECTOMY, Possible Lilyalbertina carpenter.; Surgeon: Clare Deleon M.B.B.S.; Location: [facility] ??? TONSILLECTOMY ??? TONSILLECTOMY AND ADENOIDECTOMY 1995 ??? TOTAL ABDOMINAL HYSTERECTOMY 07/25/2017 with panniculectomy MEDICATIONS: Current Outpatient Medications: ??? biotin 5,000 mcg tablet,disintegrating, Take 10,000 mcg by mouth daily., Disp: , Rfl: ??? buPROPion XL (WELLBUTRIN XL) 300 mg 24 hr tablet, Take 300 mg by mouth daily., Disp: , Rfl: ??? LORazepam (ATIVAN) 0.5 mg tablet, Take 0.5 mg by mouth as needed., Disp: , Rfl: ??? melatonin 5 mg tablet, Take 5 mg by mouth at bedtime as needed (sleep)., Disp: , Rfl: ??? fnodfnnmcvio-Wf-syvh-minerals (MULTIPLE VITAMIN, WOMENS) tablet, Take 1 tablet by mouth daily., Disp: , Rfl: ??? topiramate (TOPAMAX) 100 mg tablet, Take 100 mg by mouth daily. , Disp: , Rfl: ??? zolpidem (AMBIEN) 10 mg tablet, Take 10 mg by mouth at bedtime., Disp: , Rfl: ??? APPLE CIDER VINEGAR ORAL, Take 1 tablet by mouth daily., Disp: , Rfl: ??? calcium carbonate-vitamin D3 (Calcium 600 with Vitamin D3) 600 mg(1,500mg) - 400 unit capsule, Take 1 capsule by mouth daily. , Disp: , Rfl: ??? cholecalciferol (VITAMIN D3) 2,000 Unit tablet, Take 2,000 Units by mouth daily., Disp: , Rfl: ??? citalopram (CeleXA) 10 mg tablet, Take 1 tab PO daily for 1 week and then increase to 2 tabs PO daily. (Patient not taking: Reported on 10/06/2020 ), Disp: 60 tablet, Rfl: 1 ??? cyanocobalamin (VITAMIN B12) 500 mcg SL tablet, Take 2 tablets (1,000 mcg total) by mouth daily.(Patient not taking: Reported on 10/06/2020 ), Disp: 60 each, Rfl: 11 ??? ferrous sulfate 325 mg (65 mg iron) tablet, Take 325 mg by mouth daily., Disp: , Rfl: ??? hydrOXYzine (ATARAX) 10 mg tablet, Take 1 tab PO up to 3 times prn anxiety and 2-3 tabs at bedtime (Patient not taking: Reported on 10/06/2020 ), Disp: 60 tablet, Rfl: 3 ??? PARoxetine (PAXIL) 40 mg tablet, Take half tab PO daily for 2 weeks and then discontinue. (Patient not taking: Reported on 10/06/2020 ), Disp: , Rfl: ??? sennosides (senna) 8.6 mg tablet, Take 1 tablet (8.6 mg total) by mouth daily. (Patient not taking: Reported on 10/06/2020 ), Disp: 30 tablet, Rfl: 11 ??? topiramate (TOPAMAX) 25 mg tablet, TAKE 1 TAB BY MOUTH DAILY FOR 1 WEEK AND THEN INCREASE TO 2 TABS BY MOUTH DAILY FOR MIGRAINE PREVENTION (Patient not taking: Reported on 10/06/2020 ), Disp: 60 tablet, Rfl: 6 ??? valACYclovir (VALTREX) 1000 mg tablet, TAKE ONE TABLET BY MOUTH ONCE DAILY FOR 5 DAYS (Patient not taking: Reported on 10/06/2020), Disp: 15 tablet, Rfl: 1 ??? zolpidem (AMBIEN) 5 mg tablet, Take 1 tablet (5 mg total) by mouth at bedtime as needed for sleep., Disp: 10 tablet, Rfl: 1 ALLERGY: Allergies Allergen Reactions ??? Adhesive Tape-Silicones Rash ??? Animal Dander Hives ??? Cigarette Smoke Hives ??? House Dust Mite Rash Family History Problem Relation Age of Onset ??? Hypertension Mother ??? Migraines Mother ??? Anxiety disorder Mother ??? Obesity Mother ??? Sleep apnea Mother ??? Coronary artery disease Father ??? Coronary artery disease Grandmother ??? Diabetes Grandmother ??? Hypertension Grandmother ??? Diabetes Grandfather ??? Alcohol abuse Maternal Grandfather ??? Stroke Maternal Grandfather ??? Transient ischemic attack Maternal Grandfather ??? Alcohol abuse Brother ??? Drug abuse Brother ??? Depression Brother ??? ADD Brother ??? Drug abuse Brother ??? Depression Brother ??? Sleep apnea Maternal Grandmother ??? Anesthesia problems Maternal Grandmother ??? ADD Son ??? ADD Brother Social History Socioeconomic History ??? Marital status: Spouse name: Not on file ??? Number of children: Not on file ??? Years of education: Not on file ??? Highest education level: 12th grade Occupational History ??? Not on file Social Needs ??? Financial resource strain: Very hard ??? Food insecurity Worry: Sometimes true Inability: Never true ??? Transportation needs Medical: No Non-medical: No Tobacco Use ??? Smoking status: Never Smoker ??? Smokeless tobacco: Never Used Substance and Sexual Activity ??? Alcohol use: No Frequency: Monthly or less Drinks per session: 3 or 4 Binge frequency: Never ??? Drug use: No ??? Sexual activity: Yes Partners: Male control/protection: Vasectomy, Other Comment: Hysterectomy Lifestyle ??? Physical activity Days per week: 0 days Minutes per session: 0 min ??? Stress: Very much Relationships ??? Social connections Talks on phone: Once a week Gets together: Never Attends buddhism service: Never Active member of club or organization: No Attends meetings of clubs or organizations: Never Relationship status: Living with partner ??? Intimate partner violence Fear of current or ex partner: No Emotionally abused: Yes Physically abused: No Forced sexual activity: No Other Topics Concern ??? Not on file Social History Narrative ??? Not on file @ OBJECTIVE Vitals: 10/06/20 0917 BP: 98/61 BP Location: Right arm Patient Position: Sitting Cuff Size: Regular Pulse: 82 Weight: 75 kg Height: 162.5 cm PHYSICAL EXAM COGNITION: Alert and oriented x 4. CRANIAL NERVES: flight inspector II-XII intact and symmetric. MOTOR: Full strength throughout the upper and lower extremities bilaterally both proximally and distally. Normal tone. No pronator drift. No tremor. REFLEXES: Normal and symmetric at the biceps, triceps, brachioradialis, knees, and ankles. SENSORY: normal sensation to touch CEREBELLAR: ARMs-normal GAIT: Normal She has little bit of tenderness over her trapezius and splenius capitis bilaterally. Her neck is supple and she has no tenderness over her scalp Impression: Encounter Diagnoses Name Primary? Migraine Headache Yes Given the limited options for treatment of her headaches once they developed would seem like we should focus on prophylactic therapy. She certainly could take opioid medicines but I am disinclined to do that. We discussed Botox injections and CGRP medicines and we have elected, in a shared decision-making process, to proceed with Botox injections. Have ordered Botox injections accordingly. She is going to continue to take the topiramate 100 mg once a day even though it is prescribed as b.i.d.. A total time with patient today was 50 minutes. Marina Winter M.D., M.P.H. F RADIOLOGY documented in this encounter Plan of Treatment Upcoming Encounters Date Type Specialty Care Team Description 08/17/2022 Procedure visit Neurology Marina Winter M.D., M.P.H. [address] [place] [phone] (Wo rk) Scheduled Orders Name Type Priority Associated Diagnoses Order S chedule Botox for Chronic Procedures Routine Migraine Headache 4 Occ urrences starting Migraine 10/06/2020 unti l 10/06/2023, 2 c ompleted Scheduled Procedures Name Priority Associated Diagnoses Date/Time LIFT THIGH Excessive And Redundant Skin And Subcutaneous Tissue documented as of this encounter Results ND CHEMODENERV FACIAL TRIGEM NIDHI (05/18/2022 1:53 PM [...] Needle length: 0.5 in Injection site details Turret Punch Operator / Procerus muscle(s): 5 units into the left art museum docent muscle, 5 units into the right art museum docent muscle and 5 units into the procerus [...] third libertarian. ?? Prior preventative medication trials: to piramate and amitriptyline Headache frequency Headache days per month: 4 days Severe headache days per month: 2 days POST-PROCEDURE DETAILS ?? Complications: no apparent complications Marina Winter M.D., M.P.H. NEUROLOGY ORDERABLES Performing Organization Address City/State/ZIP Code Phon e Number MMODAL MMODAL NA [place] CHEMODENERV FACIAL TRIGEM NIDHI (02/16/2022 1:47 PM [...] Needle length: 0.5 in Injection site details Turret Punch Operator / Procerus muscle(s): 5 units into the left art museum docent muscle, 5 units into the right art museum docent muscle and 5 units into the procerus [...] Visit Diagnoses Diagnosis Migraine Headache - Primary Migraine Headache Migraine Headache documented in this encounter Additional Health Concerns Assessment Noted Time PHQ-9 Depression Total Score: 12 06/10/2020 1:20 PM CD T documented as of this encounter Care Teams Rn Manager Relationship Specialty Start Date End Date Annemarie Montiel M.D. PCP - General 04/19/17 [address] [place] [phone] documented as of this encounter
--- OUTSIDE RECORDS SUMMARY | 2022-07-24 15:11 | XMS_ITS | Encounter Summary ---
:1985 Author Organization [facility] Address [address] [place] [address] Care Team Providers Name Role Phone Annemarie Montiel M.D. Primary Care Provider [phone] Encounter Details Date Type Department Care [...] How often do you attend hoahaoism or jain Never 07/04/2019 services? 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 [address] [phone] (Wo rk) Scheduled Procedures Name Priority Associated Diagnoses Date/Time LIFT THIGH Excessive And Redundant Skin And Subcutaneous Tissue documented as of this encounter Procedures Procedure Name Priority Date/Time Associated Diagnosis Comme nts PLASTIC AND RECON Routine 12/16/2019 12:00 PM Res ults for this SURGERY IMAGE EXAM SKIVER COUNTER procedure are in the results section. documented in this encounter Results Specimen-Plastic And Recon Surgery Image Exam (12/16/2019 12:00 PM SKIVER COUNTER) Specimen (Source) Anatomical Location Collection Method / Collectio n Time Received Time / Laterality Volume Narrative IIMS - 12/17/2019 11:09 AM SKIVER COUNTER This order has been created and auto-finalized [...] documented as of this encounter Care Teams Environmental Auditor Relationship Specialty Start Date End Date Annemarie Montiel M.D. PCP - General 04/19/17 [address] [facility] [place] [phone] documented as of this encounter
--- OUTSIDE RECORDS SUMMARY | 2022-07-24 15:11 | XMS_ITS | Encounter Summary ---
:1985 Author Organization [facility] Address [address] [place] [address] Care Team Providers Name Role Phone Annemarie Montiel M.D. Primary Care Provider [phone] Reason for Visit Reason Comments Depression Pre-Rooming PHQ-9 Encounter Details Date Type Department Care Team Description 06/10/2020 Clinical Department of Annemarie Montiel Depression Communication Family MedicineNadia M.D. (Pre-Rooming [facility], [address] PHQ-9) in [facility] [phone] [address] [place], [place] (Work) [phone] Social History Tobacco Use Types Packs/Day [...] How often do you attend caodaism or nondenominational Never 07/04/2019 services? 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 - 06/15/2020 10:30 AM CDT Thank you for your response. She has scheduled a follow up appointment with me to continue to work on coping/cognitive techniques. Telephone Encounter - Annemarie Montiel M.D. - 06/14/2020 3:48 PM CDT There are not other prn type meds for her to use for anxiety She has already tried Buspar and this either did not work or gave her side effects Benzodiazepines not recommended for generalized anxiety(ativan, xanax, for example) Continue using cognitive techniques to work through symptoms. Be sure to set up a follow up with me(next available likely September) as our last appt was in March. Thank you. Telephone Encounter - Hodan Ortiz L.I.C.SBrook. - 06/10/2020 3:[address] Montiel Met with patient 8-6. Provided patient with techniques to assist with symptoms of anxiety. 1. Coronavirus and Anxiety 2. Decision Worry Tree 3. Reviewed deep breathing 4. Guided imagery Also provided her with community resources as she shared with this radio news writer there was a reduction in her EBT (SNAP) benefits. 1. School lunches are still being provided, 2. 8-20 [employer] will be in [place] to provide dairy, produce and meat. (no registration/identification needed) Patient shared that the hydroxyzine she was prescribed causes her to become very tired. She was wondering if there was a different medication for her anxiety she could try that would not cause her to feel so tired. Thanks Hodan Telephone Encounter - Giovanna Chavez - 06/10/2020 2:42 PM CDT PHQ-9 Score 10 or greater AND Item Nine is Positive (Samir High Priority) The patient has completed the PHQ-9 and has a score of 10 or greater and item 9 is positive. Please review in the EHR and assess suicidal ideation and eligibility for RN Care Coordination. Pre-Rooming PHQ-9 Questionnaire submitted 06/10/20 documented in this encounter Plan of Treatment Upcoming Encounters Date Type Specialty Care Team Description 08/17/2022 Procedure visit Neurology Marina Winter M.D., M.P.H. [address] [phone] (Wo rk) Scheduled Procedures Name Priority Associated Diagnoses Date/Time LIFT THIGH Excessive And Redundant Skin And Subcutaneous Tissue documented as of this encounter Visit Diagnoses Diagnosis Depression Major Recurrent (HCC) - Prima ry Anxiety Generalized Disorder documented in this encounter Additional Health Concerns Assessment Noted Time PHQ-9 Depression Total Score: 12 06/10/2020 1:20 PM CD T documented as of this encounter Care Teams Liner Man Relationship Specialty Start Date End Date Annemarie Montiel M.D. PCP - General 04/19/[address] [phone] documented as of this encounter
--- OUTSIDE RECORDS SUMMARY | 2022-07-24 15:11 | XMS_ITS | Encounter Summary ---
:1985 Author Organization [facility] Address [address] [place] [address] Care Team Providers Name Role Phone Annemarie Montiel M.D. Primary Care Provider [phone] Encounter Details Date Type Department Care Team Description 01/13/2020 Ancillary Procedure Department of Plastic and Reconstructive [...] How often do you attend congregation or jehovah's witness Never 07/04/2019 services? 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 [address] [phone] (Wo rk) Scheduled Procedures Name Priority Associated Diagnoses Date/Time LIFT THIGH Excessive And Redundant Skin And Subcutaneous Tissue documented as of this encounter Procedures Procedure Name Priority Date/Time Associated Diagnosis Comme nts PLASTIC AND RECON Routine 01/13/2020 12:00 PM Res ults for this SURGERY IMAGE EXAM CDT procedure are in the results section. documented in this encounter Results Abdomen Panniculectomy-Plastic And Recon Surgery Image Exam (01/13/2020 12:00 PM CDT) Specimen (Source) Anatomical Collection Method Collection Time Re ceived Time Location / / Volume Laterality 01/13/2020 12:00 PM CDT Narrative IIMS - 01/13/2020 12:09 PM CDT This order has been created [...] documented as of this encounter Care Teams Can Filler Relationship Specialty Start Date End Date Annemarie Montiel M.D. PCP - General 04/19/17 [address] [place] [phone] documented as of this encounter
--- OUTSIDE RECORDS SUMMARY | 2022-07-24 15:11 | XMS_ITS | Encounter Summary ---
:1985 Author Organization [facility] Address [address] [place] [address] Care Team Providers Name Role Phone Annemarie Montiel M.D. Primary Care Provider [phone] Reason for Visit Outpatient (Routine) - Closed Specialty Diagnoses / Procedures Referred By Contact Refer red To Contact Plastic Surgery Leyla River, PMesha, [facility] [address] [place], [place] [address] Referral ID Status Reason Start Date Expiration Date Visits Requ ested Visits Authorized [id number] Closed 12/30/2019 12/29/2020 1 1 Encounter Details Date Type Department Care Team Description 01/13/2020 Office Visit Division of Plastic Kera, Nic U p Examination Surgery in [place], Melanie, ÁNGEL, Posto perative Visit [place] [facility] (Primary Dx) [address] [facility] [address] [place] [phone] [phone] Social History Tobacco Use Types Packs/Day Years [...] 03/29/2020 relatives? How often do you attend pentecostalism or amish Never 07/04/2019 services? 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 - 01/13/2020 11:00 AM CDT SUBJECTIVE CHIEF COMPLAINT / REASON FOR VISIT Service of Dr. Deleon ([phone]) Maria Alejandra Gomez is a 34 y.o. [...] panniculectomy. Today the patient is post op 4 weeks. She states that overall she is doing well. She is wearing her abdominal binder at all times. She states that her final drain was removed last week. She has some paper tape still intact that needs to come off today. She plans on returning to work January 26 rn lvn. OBJECTIVE PHYSICAL EXAM Constitutional She appears well-developed and well-nourished. No distress. Abdomen Umbilical incision is C/D/I with absorbable sutures. Lower abdominal transverse incision is CDI. Paper tape was removed. There is a small area of superficial incisional dehiscence located over the leftlateral incision, this was covered with bacitracin and a piece of gauze. ASSESSMENT / PLAN #1 Status post panniculectomy, with Dr. Deleon, 12/16/2019 It was a pleasure seeing the patient in clinic today. She is doing well postoperatively. We will have her continue with applying antibiotic ointment 3 times a day to the left lateral abdominal incisionuntil the small superficial dehiscence has healed over. If she has any worsening symptoms of the superficial dehiscence or any other areas of concern such as redness, swelling, or dehiscence or drainage from her incision, we would like to be notified. She may continue with wearing her abdominal binder until 6 weeks postop and then as needed thereafter. I was specifically recommend wearing abdominal binder she plans on being active. Photos were obtained for record today. She has follow-up at 3 months postop. documented in this encounter Plan of Treatment Upcoming Encounters Date Type Specialty Care Team Description 08/17/2022 Procedure visit Neurology Marina Winter M.D., M.P.H. [address] [phone] (Wo rk) Scheduled Procedures [...] documented as of this encounter Care Teams Principal Data Architect Relationship Specialty Start Date End Date Annemarie Montiel M.D. PCP - General 04/19/[address] [phone] documented as of this encounter
--- OUTSIDE RECORDS SUMMARY | 2022-07-24 15:11 | XMS_ITS | Encounter Summary ---
:1985 Author Organization [facility] Address [address] [place] [address] Care Team Providers Name Role Phone Annemarie Montiel M.D. Primary Care Provider [phone] Reason for Visit Auth/Cert Specialty Diagnoses / Procedures Referred By Contact Refer red To Contact Diagnoses Panniculitis Bariatric surgery status Panniculitis [M79.3] Procedures [place] EXCISN EXCESS SKIN/TISS ABD PANNICULECTOMY Referral ID Status Reason Start Date Expiration Date Visits Requ ested Visits Authorized [id number] 1 1 Encounter Details Date Type Department Care Team Description 12/16/2019 - Hospital Encounter [facility] Pancho Keeley rojo (Primary 12/17/2019 [facility], [facility] , [facility], Dx) [facility], Ninth Floor [address] [place] [address] [place] [phone] Social History Tobacco Use Types Packs/Day Years [...] 03/29/2020 relatives? How often do you attend judaism or methodist Never 07/04/2019 services? Do you belong to any clubs or organizations such as No 07/04/2019 judaism groups, unions, fraternal or athletic groups, or [...] at Date Recorded Female 10/16/2018 10:53 AM ESCROW ASSISTANT documented as of this encounter Last Filed Vital Signs Vital Sign Reading Time Taken Comments Blood Pressure 101/58 12/17/2019 8:30 AM ESCROW ASSISTANT Pulse 78 12/17/2019 8:30 AM ESCROW ASSISTANT Temperature 37 ??C (98.6 ??F) 12/17/2019 8:30 AM ESCROW ASSISTANT Respiratory Rate 16 12/17/2019 8:30 AM ESCROW ASSISTANT Oxygen Saturation 98% 12/17/2019 8:30 AM ESCROW ASSISTANT Inhaled Oxygen Concentration - - Weight 74.5 kg (164 lb 3.9 oz) 12/16/2019 8:35 AM ESCROW ASSISTANT Height 163.5 cm (5' 4.37) 12/16/2019 8:35 AM ESCROW ASSISTANT Body Mass Index 27.87 12/16/2019 8:35 AM ESCROW ASSISTANT documented in this encounter Discharge Summaries Lidia Irby Lexy, ÁNGEL, C.N.P. - 12/17/2019 8:46 AM CST DISCHARGE SUMMARY BRIEF OVERVIEW Discharge Provider: Clare Deleon M.B.B.S. Primary Care Providers: Annmearie Montiel M.D. (General) [address] [phone] Primary Care Provider Primary Care Provider Admission Date: 12/16/2019 Discharge Date: 12/17/2019 PRINCIPAL DIAGNOSIS Panniculitis SECONDARY DIAGNOSES Principal Problem: Panniculitis Resolved Problems: * No resolved hospital problems. * Surgery Information This Encounter Past Procedures (12/17/2018 to Today) Date Procedures Providers Location 12/16/2019 PANNICULECTOMY, Possible Lily de lis. Clare Deleon M.B.B.SJose Rafael Carpenter M.D.Nguyen, Anita, M.B.B.S., M.S. RST ROMB OR DISCHARGE DISPOSITION Home or Self Care [1] ACTIVE ISSUES REQUIRING FOLLOW UP CARE OF YOUR SURGICAL SITE: As we discussed: Keep your surgical sites clean and dry. Keep bend forward at the hip at all times SIGNS OF INFECTION: Please inspect your incisions daily for signs and symptoms of infection. These include but are not limited to high fever, increased redness, swelling, or pain around the incisions, discharge from the incisions, or separation of the incisions. Should any of the above occur, you should contact your physician. PAIN MEDICATION: If you have been given narcotics: Do not drive or drink alcohol while taking this medication. Do nottake more than 6 tablets per day (adults), or the recommended dosing indicated on the label (children). Please use Senna-Plus daily while taking the narcotics to prevent constipation. If you feel like you no longer need this medications to control your pain you may transition to [id number] Tylenol for pain relief. Do not take more than 8 tablets of Tylenol (4000 mg) per day (adults), or the recommended dosing indicted on the label (chldren). DIET: To optimize healing, it is essential to have adequate nutritional intake. Studies have shown drastically improved outcomes for patients with a sound nutritional state. It is recommended you take a multivitamin daily. A balanced diet with recommended daily servings of lean protein, vegetables and grains can help ensure adequate nutrition. It is equally important to drink water throughout the day. Thiswill help prevent constipation. HYGIENE: You can shower 48 hours after surgery. After your shower, gently pat yourself dry. No soaking in bath water, and no swimming for 5 weeks after surgery. ADDITIONAL INSTRUCTIONS: Do not apply heat or ice packs to the surgical areas. Please do not smoke, or be exposed to second hand smoke. CALL YOUR SURGEON OR GO TO EMERGENCY IF YOU HAVE: - Fever 38.5-C (101-F) or greater, or chills, lasting longer than 24 hours. - Nausea/vomiting lasting longer than 24 not relieved by medications. - Redness, bleeding, foul smelling discharge, or hard swelling around or near an incision with increased tenderness or pain around your incisions that is not relieved by your pain pills. Should you have any questions please do not hesitate to call us. We would be more than happy to answer these for you. ?? FOLLOW UP INFORMATION ?? You have a follow up scheduled unless we discussed otherwise. Please feel free to call the actuarial consultant surgeon's office for details if you do not have these. Please check your portal or call the scheduling office for information regarding your appointment. CONTACT INFORMATION ?? - If you have questions about your appointment schedule, please call [phone]. - During evening or weekend hours, you may contact a member of the Plastic Surgery team by calling the [facility] film developing machine operator at [phone] and ask to speak with the Plastic Surgery resident administration assistant for emergencies. If you have questions about your appointment schedule and you are a hand patient, please call [phone] Sunday through Sunday, 8:00 - 4:30 PM, otherwise call [phone]. For any questions or concerns regarding your care or post-operative instructions, please call , Sunday through Sunday, 8:00 - 4:30 PM. If you experience an urgent issue related to your surgery outside of business hours, please contact the [facility] film developing machine operator at and ask to speak with the on-call plastic surgery resident. DRAIN MANAGEMENT ?? You are being sent home with Huan SCHAEFER) drains in place. ??These drains are special tubes that prevent fluid from collecting under your skin. ?? Caring for your drains are easy. ??Depending on how much fluid drains from under your skin, you willneed to empty the bulbs every 8-12 hours. ?The bulbs should be emptied when they are half full. ??Before you are discharged from the hospital, your nurse will show you how to: 1) Empty the bulb. 2) Record the amount of fluid collected. 3) Close the bulb. 4) Keep the drain site clean and free from infection. 5) Flush drain, if instructed ?? Keep the area around where the tube exits the skin dry. ??Change the dressing every day to keep the area around the tube dry. ?? Pin the tube to your clothes using a piece of tape attached to the tube and a safety pin. ??If the tube is long, tuck the tube and the container beneath your underwear. ??Some people find putting the tube and container into a waist pack convenient and comfortable. ?? Empty the container when it becomes half full. The container will not create suction if it becomes too full. ?? Keep the container compressed at all times except when emptying it. ??The compression creates the gentle suction. ?? You may shower with the BIANCA drain in place; however, you should try to keep the area where the drainsenter your body as dry as possible. ??Recommend a sponge bath only while the BIANCA drain is in place. ??You may shower 24 hours after the drain is removed. ? - ?Record the output from each drain in a 24 hour period and bring this record to your next appointment if you still have drains in place. - ?When the amount of fluid emptied from your drain is less than 30 mL/day for 2 consecutive days, it is ready for removal. ??Call your surgical service for an appointment to have the drain removed. - ?If you have multiple drains, you should not have more than one drain removed from the same area in a 24 hour period. ?? To empty the container (or bulb) 1) Open the stopper to release the suction. 2) Holding the stopper out of the way, pour the fluid into the measuring cup provided to you. 3) Measure and record the amount. ??If you have two tubes, record the amount from tube #1 and tube #2. 4) Compress the container. 5) Replace the stopper. 6) Keep the tube taped to your skin. 7) Make sure the dressing is clean and dry. 8) Pin the tube to your clothes. ?? How to care for the skin and the drain site: 1) Wash your hands well with soap and water. 2) Remove the dressing from around the drain. ??Use soap and water to clean the drain site and the skin around it. ??Clean this area once a day. Pat the area dry. ?? 3) When the drain site is clean and dry, put a new dressing around the drain. ??Put tape on the dressing to hold it down against your skin. 4. Throw the old dressing away and wash your hands. ?? How to check for infection: 1) Increased pain, or pain no longer relieved by pain medications. 2) Increased tenderness, redness, or swelling at the incision site. 3) Oral temperature of 101.5 degrees F or higher, chills. 4) Purulent (Cloudy yellow, hercules) drainage, bleeding or a foul-smelling odor coming from the incision(if this is a change from when you left the hospital). 5) Separation of the incision edges or re-opening of the wound/incision. 6) Any other change that concerns you. If you have any of these symptoms of infection, please report these to your provider. ?? Seek Medical Attention if: 1) Your drain out-put ceases. 2) You develop fever/chills. ?? Take the prescription antibiotic medications as directed while your drain is in place. ??If this is longer than 10 days, there should be a prescription refill for you to continue taking it which can beobtained by contacting your pharmacy. ??You may stop taking the antibiotics after your drain is removed. ? OUTPATIENT FOLLOW UP Future Appointments Date Time Provider Department Center 12/30/2019 2:30 PM Leyla River P.A.-C., M.S. [facility] Spec TEST RESULTS PENDING AT DISCHARGE DETAILS OF HOSPITAL STAY REASON FOR ADMISSION Panniculitis HOSPITAL COURSE Patient was admitted to the hospital for the management of and underwent the procedures outlined below. PROCEDURE(S) PERFORMED Panniculectomy HOSPITAL COURSE Following an uneventful operative course and a brief stay in the post anesthesia care unit, the patient was transferred to the general hospital floor. Early mobilization after surgery was tolerated well. The postoperative course was uncomplicated. When the patient was tolerating a regular diet, the pain was well controlled on oral medications, bowel and bladder function and ambulatory status had returned to its prior state the patient was discharged from the hospital. CONSULTS ORDERED DURING THIS ADMISSION None CONDITION AT DISCHARGE stable Discharge instructions were provided to the patient and caregiver(s). OW ASSISTANT documented in this encounter Discharge Instructions AttachmentsThe following attachments cannot be sent through Care Everywhere. Ondansetron (By mouth, Into the mouth) (Tunisian)Laxative, Stimulant Combination (By mouth) (Tunisian)Oxycodone, Rapid Release (By mouth) (Tunisian)documented in this encounter Medications at Time of Discharge Medication Sig Dispensed Refills Start Date End Date APPLE CIDER VINEGAR ORAL Take 1 tablet by 0 mouth daily. biotin 5,000 mcg Take 10,000 mcg by 0 tablet,disintegrating mouth daily. calcium carbonate-vitamin Take 1 capsule by 0 D3 (Calcium 600 with mouth daily. Vitamin D3) 600 mg(1,500mg) -400 unit capsule cholecalciferol (VITAMIN Take 2,000 Units 0 D3) 2,000 Unit tablet by mouth daily. cyanocobalamin (VITAMIN Take 2 tablets 60 each 10/09/20 19 B12) 500 mcg SL (1,000 mcg total) tabletIndications: Surgery by mouth daily. Bariatric Status Post ferrous sulfate 325 mg (65 Take 325 mg by 0 mg iron) tablet mouth daily. melatonin 5 mg tablet Take 5 mg by mouth 0 at bedtime as needed (sleep). vsydvkznskun-Dx-fick-license registration examiner Take 1 tablet by 0 als (MULTIPLE VITAMIN, mouth daily. WOMENS) tablet valACYclovir (VALTREX) TAKE ONE TABLET BY 15 tablet 1 03/26 1000 mg tablet MOUTH ONCE DAILY FOR 5 DAYS acetaminophen (TYLENOL) Take 2 tablets 100 tablet 0 12/16/19 20 12/26/2019 500 mg tablet (1,000 mg total) by mouth every 6 (six) hours as needed for pain (pain) for up to 10 days. Take 2 tablets up to four times daily for pain ondansetron (ZOFRAN) 4 mg Take 1 tablet (4 30 tablet 0 12/0612/23/2019 tablet mg total) by mouth every 8 (eight) hours as needed for nausea or vomiting for up to 7 days. oxyCODONE (ROXICODONE) 5 Take 1 tablet (5 11 tablet 0 12/1612/26/2019 mg immediate release mg total) by mouth tabletIndications: Acute every 4 (four) Pain hours as needed for pain or severe pain or score 7-10 of 10 for up to 10 days Indication: acute pain. sennosides (senna) 8.6 mg Take 1 tablet (8.6 30 tablet 11 12/15/2020 tablet mg total) by mouth daily. busPIRone (BUSPAR) 15 mg Take 1-2 tablets 120 tablet 11 10/0903/30/2020 tabletIndications: Anxiety (15-30 mg total) Generalized Disorder by mouth 2 (two) times a day. PARoxetine (PAXIL) 40 mg Take 1.5 tablets 45 tablet 11 10/0906/21/2020 tabletIndications: (60 mg total) by Depression Major Recurrent mouth daily. (HCC), Anxiety Generalized Disorder documented as of this encounter Progress Notes Jose Rafael Chew M.D. - 12/17/2019 7:55 AM CST S: Doing well pain controlled ambulated well no issues. Shower this am. Eating breakfast no nausea. O: VSS Abd drains 50 and 90 ss. I cdi. No fluid collection. All visible skin viable. Umbilicus with xeroform dressings. SCDs in place. Sitting in chair Hgb and other labs stable A/P 34F history massive wt loss, s/p 12/16/19 panniculectomy. Plan: Activity: Semi Madrigal at all times Anticoagulation: LVX, SCDs Antibiotics (dates): Periop Cultures: - Diet: Regular Drains: Jps abd Dressings/WV: Prineo, brown paper tape. Abd binder when ambulating. Topiform IVF: 100 LR Pain: tylenol, prn oxy, dilaudid PT/OT: - Consults: - Disposition: DC 12/17 Follow up: 12/30 [place] [id number] OW ASSISTANT documented in this encounter Nursing Notes Makenna Squires R.N. - 12/17/2019 9:47 AM CST Pt discharged to [facility] this morning. Medications picked up at outpatient pharmacy. IVs removed. All discharge education completed and all questions answered. Vital signs stable. BP 101/58 (BP Location: Left arm;Upper, Patient Position: Sitting) Pulse 78 Temp 37 ??C (Oral) Resp 16 Ht 163.5 cm Wt 74.5 kg LMP 06/08/2017 SpO2 98% No BMI 27.87 kg/m?? Electronically signed by: Makenna Squires R.N. 12/17/19 10:06 AM ESCROW ASSISTANT OW ASSISTANT Makenna Squires R.N. - 12/17/2019 9:46 AM CST Shift Goals: Clinical Goals for the Shift: Prepare for DC Identify possible barriers to meeting goals/advancing plan of care: None End of Shift Summary: VSS. Ambulating SBA/independently. Voiding spontaneously. Pt safe and free of falls on shift. Planning to DC to [facility] today. Electronically signed by: Makenna Squires R.N. 12/17/19 9:47 AM ESCROW ASSISTANT OW ASSISTANT Carter Betst R.N. - 12/17/2019 6:45 AM CST Shift Goals: Clinical Goals for the Shift: Pain Control Identify possible barriers to meeting goals/advancing plan of care: not alerting staff of pain End of Shift Summary: Pt. Was able to ambulate at the beginning of the shift with standby assistancebefore going to bed. Pt. Was vitally stable overnight and pain was easily controlled. OW ASSISTANT documented in this encounter OR Notes Op Note - Jose Rafael Chew M.D. - 12/16/2019 11:30 AM CST FULL OP NOTE Procedure(s): PANNICULECTOMY, Possible Lily de lis. Surgeon(s) and Role: * Clare Deleon M.B.BRodrigoSRodrigo - Primary * Jose Rafael Chew M.D. - Employment Trainer * Sulma [facility] M.B.BShan, M.S. - Other Care Team Assistant Anesthesia Type General Pre-operative Diagnosis Panniculitis Post-operative Diagnosis Panniculitis Findings As expected. This case was substantially more difficult than usual because of significant effort and difficulty mobilizing and identifying anatomical structures due to altered surgical field secondary to obesity and previous surgery. Complications None Description of Procedure Indication: The patient is indicated for the above stated procedure. Please see relevant accompanying notes for further details. Anesthesia General Complications None Informed Consent Patient was told of the risks, benefits, alternative to the procedure. Risks included, but not limited to, infection, wound healing issues, injury to neurovascular and other structures, incomplete resolution of their symptoms, the need for subsequent surgeries. Advanced directive were discussed, team approach explained, the understand the role of overlapping surgeries, the use of medical photography was reviewed. The patient consented and wished to proceed. Procedural Pause The patient's correct identity, side, site, procedure to be performed was verified. Intravenous antibiotics were administered prior to skin incision. Procedural Note The patient was brought to the operating room where they were transferred to the operating room table and were secured with safety straps. All pressure points were well padded. SCDs were applied. We commence by discusing with the patient possible horizontal-only incision versus horizontal and vertical component cywkf-yz-lty incision. We started with the lower incision, which extends from the ASIS region to the ASIS region above the mons at her natural skin fold inferior to the umbilicus. Using10 blade and electrocautery, this was incised to the fascial layer, cauterizing all of her dilated superficial veins in the process, with a plane between the fascia and the abdominal skin flap. We undermined in a Blanquita tree shape manner up to the xiphoid process. In the medial region, undermining was limited to a tunnel of about 3 or 4 cm width. The umbilicus was islandized during this same time u sing an 11 blade and face-lift scissors. The 12 o'clock of the umbilicus was marked for further inset. Hemostasis was achieved. We flexed the patient by about 20 degrees and pulled the excess skin downto estimate the excess skin for final closure. This was marked and temporarily stapled, and shaped it medially so that we had did not have dog ears coming out laterally. Further skin was found to be excisable, and this was excised by a further 3 or 4 cm width at midline, tapering to less skin excised laterally. Next, after temporarily stapling, we found that this completely corrected her excess skin and a vertical component would not help with her waist shape or removing any further excess skin, butgive her a further vertical scar which might lead to increased risk of wound healing at the T-junction. Therefore, we elected to not perform the vertical component of our abdominoplasty. We then reopened for final hemostasis after irrigation with DAB solution. TAP block was performed using a combination of a solution mixed using 20 cc of Exparel, 30 cc of 0.25% bupivacaine, and 50 cc of saline; 30 cc was used for TAP block on each side. The lower flap was then secured in place to thefascial layer, making sure there was no buttonholing and keeping the mons in a good position bilaterally was found to be symmetric. The umbilicus was then brought out through the abdominal flap as a chevron shape incision and secured in place using interrupted 4-0 Monocryl. We then placed two 15-Bahamian BIANCA drains coming out laterally on her lateral thighs region via trocar and these were secured using3-0 nylon sutures. Prior to final closure we noticed, as noted on the previous CT scan, a tiny fat hernia superior to the umbilicus. This was fixed using interrupted [id number] 2-0 PDS. Two sutures were placed, and there was no further hernia. The rest of the Exparel was divided equally between the 2 sites and injected into the drain sites and incisions. TXA 20 cc which was prepared using 3 g ofTXA with 75 cc of saline was irrigated into the abdomen area. Then we proceeded with final closure using 2-0 PDS in the Elizabeth layer and 3-0 Monocryl deep dermal followed by running 2-0 Monoderm sutures. Prineo tape and brown paper tape were applied to the abdomen incision. BioPatch and Tegaderm were applied to the drain sites, and Xeroform and Tegaderm were applied to the umbilicus. The patient remained flexed, and transferred to the PACU in the flexed hospital bed. The patient tolerated the procedure well and was awakened from anesthesia without difficulties. Theywere transferred to the PACU in stable condition without any known complications. All counts were correct. Specimens ID Type Source Tests Collected by Time A : panniculus Tissue Panniculus SURGICAL PATHOLOGY, [facility] Clare Deleon M.B.B.S. 12/16/2019 1155 Drains Closed/Suction Drain 1 Right;Anterior;Lateral Thigh Bulb 15 Fr. (Active) 12/16/19 1257 Thigh Placed by External Staff?: Placed by: Dr Louis Tube Number: 1 Orientation: Right;Anterior;Lateral Drain Tube Type: Bulb Size (Fr): 15 Fr. Size (mm): Size (In): Drain [place] Size (mL): 100 mL Number of Sutures Placed: Removal Reason: Closed/Suction Drain 1 Left;Anterior;Lateral Leg Bulb 15 Fr. (Active) 12/16/19 1301 Leg Placed by External Staff?: Placed by: Dr Deleon Tube Number: 1 Orientation: Left;Anterior;Lateral Drain Tube Type: Bulb Size (Fr): 15 Fr. Size (mm): Size (In): Drain [place] Size (mL): 100 mL Number of Sutures Placed: Removal Reason: Indwelling Urinary Catheter Non-latex 16 Fr. (Active) 12/16/19 1133 Placed by: Eva Buitrago RN Placed by External Staff?: Hand Hygiene Performed Prior to Insertion: Yes Sterile technique followed?: Yes Catheter Type: Non-latex Tube Size (Fr.): 16 Fr. Catheter Balloon Size: 10 mL Urine Returned: Yes Removal Reason: Estimated Blood Loss None Implants None Mo Ella Chew OW ASSISTANT documented in this encounter Miscellaneous Notes Hospital Course - Jose Rafael Chew M.D. - 12/16/2019 7:37 AM CST Patient was admitted to the hospital for the management of and underwent the procedures outlined below. PROCEDURE(S) PERFORMED Panniculectomy HOSPITAL COURSE Following an uneventful operative course and a brief stay in the post anesthesia care unit, the patient was transferred to the general hospital floor. Early mobilization after surgery was tolerated well. The postoperative course was uncomplicated. When the patient was tolerating a regular diet, the pain was well controlled on oral medications, bowel and bladder function and ambulatory status had returned to its prior state the patient was discharged from the hospital. OW ASSISTANT documented in this encounter Plan of Treatment Upcoming Encounters Date Type Specialty Care Team Description 08/17/2022 Procedure visit Neurology Marina Winter M.D., M.P.H. [address] [phone] (Wo rk) Scheduled Procedures Name Priority Associated Diagnoses Date/Time LIFT THIGH Excessive And Redundant Skin And Subcutaneous Tissue documented as of this encounter Procedures Procedure Name Priority Date/Time Associated Diagnosis Comme nts CBC WITHOUT Routine 12/17/2019 4:51 Results for this DIFFERENTIAL, B AM ESCROW ASSISTANT procedure ar e in the results section. BASIC METABOLIC PANEL, Routine 12/17/2019 4:51 Re sults for this S/P AM ESCROW ASSISTANT procedure are i n the results section. ADULT OXYGEN THERAPY Routine 12/16/2019 2:23 PM ESCROW ASSISTANT SURGICAL PATHOLOGY, Routine 12/16/2019 11:55 Panniculitis Resu lts for this [facility] AM ESCROW ASSISTANT procedure are i n the results section. PANNICULECTOMY 12/16/2019 10:24 Panniculitis AM ESCROW ASSISTANT documented in this encounter Results (ABNORMAL) Basic Metabolic Panel (12/17/2019 4:51 AM ESCROW ASSISTANT) P athologist Signature Potassium, S 3.9 3.6 - 5.2 12/17/2019 DTL mmol/L 6:00 AM ESCROW ASSISTANT Sodium, S 140 135 - 145 12/17/2019 [facility] mmol/L 6:00 AM ESCROW ASSISTANT Chloride, S 102 98 - 107 12/17/2019 DTL mmol/L 6:00 AM ESCROW ASSISTANT Bicarbonate, S 24 22 - 29 12/17/2019 DTL mmol/L 6:00 AM ESCROW ASSISTANT Anion Gap 14 7 - 15 12/17/2019 DTL 6:00 AM ESCROW ASSISTANT BUN (Blood Urea 9 6 - 21 12/17/2019 DTL Nitrogen), S mg/dL 6:00 AM ESCROW ASSISTANT Creatinine 0.63 0.59 - 12/17/2019 DTL 1.04 mg/dL 6:00 AM ESCROW ASSISTANT eGFR-Non >90 >=60 12/17/2019 DTL Black/ mL/min/BSA 6:00 AM ESCROW ASSISTANT Citizen [place] Comment: ----ADDITIONAL INFORMATION---- Estimated GFR calculated using the 2009 CKD_EPI creatinine equation. eGFR-Black/ >90 >=60 mL/min/BSA 2019 6:00 AM ESCROW ASSISTANT DTL Comment: ----ADDITIONAL INFORMATION---- Estimated GFR calculated using the 2009 CKD_EPI creatinine equation. Calcium, Total, S 8.5 (L) 8.6 - 10.0 mg/dL 12/17/2019 6:00 AM ESCROW ASSISTANT DTL Glucose, S 81 70 - 140 mg/dL 12/17/2019 6:00 AM ESCROW ASSISTANT D TL Specimen Anatomical Collection Method Collection Time Receive d Time (Source) Location / / Volume Laterality Blood (Blood, 12/17/2019 4:51 AM 12/17/19 5:02 Venous) ESCROW ASSISTANT AM ESCROW ASSISTANT Clare Murphy LAB BLOOD ADD-ON Performing Organization Address City/[facility] Code Phon e Number [facility] - [address] [place], [place] [address] [facility] [place] [address] Laboratories[address] (ABNORMAL) CBC without Differential (12/17/2019 4:51 AM ESCROW ASSISTANT) [facility] gist Method Time Signature Hemoglobin 11.5 (L) 11.6 - 12/17/2019 DTL 15.0 g/dL 5:07 AM ESCROW ASSISTANT Hematocrit 33.7 (L) 35.5 - 12/17/2019 DTL 44.9 % 5:07 AM ESCROW ASSISTANT Erythrocytes 3.78 (L) 3.92 - 12/17/2019 DTL 5.13 5:07 AM ESCROW ASSISTANT x10(12)/L MCV 89.2 78.2 - 12/17/2019 DTL 97.9 fL 5:07 AM ESCROW ASSISTANT RBC Distrib Width 12.2 12.2 - 12/17/2019 DTL 16.1 % 5:07 AM ESCROW ASSISTANT Platelet Count 160 157 - 371 12/17/2019 DTL x10(9)/L 5:07 AM ESCROW ASSISTANT Leukocytes 7.5 3.4 - 9.6 12/17/2019 DTL x10(9)/L 5:07 AM ESCROW ASSISTANT Specimen Anatomical Collection Method Collection Time Receive d Time (Source) Location / / Volume Laterality Blood (Blood, 12/17/2019 4:51 AM 12/17/19 5:03 Venous) ESCROW ASSISTANT AM ESCROW ASSISTANT Jose Rafael Chew M.D. LAB BLOOD ADD-ON Performing Organization Address City/[facility] Code Phon e Number [facility] - [address] [place], [place] [address] [facility] [place] [address] Laboratories[address] Surgical Pathology, Frozen Lab (12/16/2019 11:55 AM ESCROW ASSISTANT) Component Value Ref Test Analysis Performed At [facility] gist Range Method Time Signature [facility] 5[facility]47 PM ESCROW ASSISTANT Report Randall Banuelos M.D. [phone] 12/16 [facility] electronically I verify that I have examined all relevant slides/ma terials 5:47 PM ESCROW ASSISTANT signed by for the specimen(s) and rendered or confirmed the diagnosis. Gross Description A. ??Received fresh labeled panniculus is a 103 0 gram 12/16/2019 [facility] aggregate of unremarkable skin and adipose tissue. ??Gross 5:47 PM ESCROW ASSISTANT examination only. ??Grossed by SSF. Interpretation FINAL DIAGNOSIS 12/16/2019 [facility] A. ??Skin and soft tissue, panniculus, panniculectomy: ??A 5:47 PM ESCROW ASSISTANT 1030 gram aggregate of unremarkable skin and adipose tissue. Gross examination only. Specimen (Source) Anatomical Collection Method Collection Time Re ceived Time Location / / Volume Laterality Tissue 12/16/2019 11:55 (Panniculus) AM ESCROW ASSISTANT Comment: Please weigh specimen Narrative This result has an attachment that is no t available. Clare Murphy LAB SURG PATH ORDERABLES Performing Organization Address City/State/ZIP Code Phon e Number [facility] - [address] [place] [id number] [place] [address] documented in this encounter Visit Diagnoses Diagnosis Panniculitis - Primary documented in this encounter Admitting Diagnoses Diagnosis Panniculitis documented in this encounter Administered Medications Inactive Administered Medications - up to 3 most recent administrations Medication Order MAR Action Action Date Dose Rate Site acetaminophen tablet 1,000 mg Given 12/17/2019 3:56 AM ESCROW ASSISTANT 1,000 mg (TYLENOL) 1,000 mg, oral, Every 6 hours, First dose on Sun12/16/19 at 1615, Start 6 hours after last dose. Do not exceed 4 grams in 24 hours. Given 12/16/2019 9:34 PM ESCROW ASSISTANT 1,000 mg Given 12/16/2019 5:06 PM ESCROW ASSISTANT 1,000 mg acetaminophen tablet 1,000 mg (TYLENOL) Given 12/16/2019 9:36 AM ESCROW ASSISTANT 1,000 mg 1,000 mg, oral, Once, On Sun12/16/19 at 0930, For 1 dose, Pre-Op busPIRone tablet 15 mg (BUSPAR) Given 12/17/2019 8:37 AM ESCROW ASSISTANT 15 mg 15 mg, oral, Daily, First dose on Sun12/17/19 at 0900 celecoxib capsule 400 mg (CeleBREX) Given 12/16/2019 9:38 AM ESCROW ASSISTANT 400 mg 400 mg, oral, Once, On Sun12/16/19 at 0930, For 1 dose, Pre-Op, Real Time Analyst, PreOp cholecalciferol (vitamin D3) tablet Given 12/17/2019 8:37 AM ESCROW ASSISTANT 2,000 Units 2,000 Units 2,000 Units, oral, Daily, First dose on Sun12/17/19 at 0900, cholecalciferol (vitamin D3) orderable was interchanged for cholecalciferol (vitamin D3) tablet/capsule 25 mcg cholecalciferol equivalent to 1000 units cholecalciferol cyanocobalamin tablet 1,000 mcg (VITAMIN Given 12/17/2019 8: 37 AM ESCROW ASSISTANT 1,000 mcg B12) 1,000 mcg, oral, Daily, First dose on Sun12/17/19 at 0900 enoxaparin injection 40 mg Given 12/17/2019 8:37 AM ESCROW ASSISTANT 40 mg Left Upper Arm (LOVENOX) (Back) 40 mg, subcutaneous, Daily, First dose on Sun12/17/19 at 0900 fentaNYL injection 25 mcg (SUBLIMAZE) Given 12/16/2019 2:45 PM ESCROW ASSISTANT 25 mcg 25 mcg, intravenous, Every 2 min PRN, For pain 4 or greater (maximum 100 mcg). If max dose of Fentanyl is reached and if pain is greater than 4, discontinue Fentanyl: give Hydromorphone, Starting on Sun12/16/19 at 1423, PACU (only) ferrous sulfate tablet 65 mg of iron Given 12/17/2019 8:37 AM ESCROW ASSISTANT 65 mg of iron 65 mg of iron, oral, Daily, First dose on Sun12/17/19 at 0900 gabapentin tablet 600 mg (NEURONTIN) Given 12/16/2019 9:37 AM ESCROW ASSISTANT 600 mg 600 mg, oral, Once, On Sun12/16/19 at 0930, For 1 dose, Pre-Op, Real Time Analyst, PreOp lactated ringers New Bag 12/16/2019 5:06 PM ESCROW ASSISTANT 100 mL/hr 100 mL/hr 100 mL/hr, intravenous, Continuous, Starting on Sun12/16/19 at 1530 melatonin tablet 5 mg 5 mg, oral, Bedtime PRN, sleep, Starting on Sun 0 at 2122 [id number]-SQ-Ca-minerals 9 mg Given 12/17/2019 8:[address] 1 tablet iron-400 mcg tablet 1 tablet (THERAPEUTI C-M) 1 tablet, oral, Daily, First dose on Sun12/17/19 at 0900 ondansetron ODT disintegrating tablet 4 mg Given 12/16/2019 9:38 AM ESCROW ASSISTANT 4 mg (ZOFRAN-ODT) 4 mg, sublingual, Once, On Sun12/16/19 at 0930, For 1 dose, Pre-Op, When splitting ODT at bedside, handle with gloves and a pill splitter to prevent moisture contact. oxyCODONE IR tablet 10 mg (ROXICODONE) Given 12/17/2019 9:22 AM ESCROW ASSISTANT 10 mg 10 mg, oral, Every 4 hours PRN, moderate pain or score 4-6 of 10, severe pain or score 7-10 of 10, Starting on Sun12/16/19 at 1525 Given 12/17/2019 3:56 AM ESCROW ASSISTANT 10 mg Given 12/16/2019 11:01 PM ESCROW ASSISTANT 10 mg oxyCODONE IR tablet 5 mg (ROXICODONE) Given 12/16/2019 6:51 PM ESCROW ASSISTANT 5 mg 5 mg, oral, Every 4 hours PRN, mild pain or score 1-3 of 10, Starting on Sun12/16/19 at 1525 PARoxetine tablet 40 mg (PAXIL) Given 12/17/2019 9:22 AM ESCROW ASSISTANT 40 mg 40 mg, oral, Daily, First dose on Sun12/17/19 at 0900 scopolamine base 1 mg Medication Applied 12/16/2019 9:38 AM 1 patch Behind Left Ear over 3 days 1 patch ESCROW ASSISTANT (TRANSDERM SCOP) 1 patch, transdermal, Administer over 72 Hours, Once as needed, nausea, vomiting, Starting on Sun12/16/19 at 0925, For 1 dose, Pre-Op, Contains 1.5 mg to deliver 1 mg/72 hours. sennosides-docusate sodium 8.6-50 mg per Given 12/17/2019 8:37 A M ESCROW ASSISTANT 1 tablet tablet 1 tablet (SENOKOT-S) 1 tablet, oral, 2 times daily, First dose on Sun12/16/19 at 2100, Do not give if patient has diarrhea. Given 12/16/2019 9:34 PM ESCROW ASSISTANT 1 tablet documented in this encounter Active and Recently Administered Medications Times are shown in ESCROW ASSISTANT. Scheduled Medication Order 12/15/2019 12/16/2019 12/17/2019 acetaminophen tablet 1,000 mg (TYLENOL) 1706 (Given - Provider: Dorota Tejeda RCiera)2134 (Given - Provider: Carter Betts RRodrigoNRodrigo) 0356 (Given - Provider: Carter Betts RRodrigoN.) 1,000 mg, oral, Every 6 hours, First dos e on Sun12/16/19 at 1615, Start 6 hours after last dose. Do not exceed 4 grams in 24 hours. acetaminophen tablet 1,000 mg (TYLENOL) (COMPLETED) 0936 (Given - Provider: Mary Hutson RRodrigoNRodrigo) 1,000 mg, oral, Once, On Sun12/16/19 at 0930, For 1 dose, Pre-Op busPIRone tablet 15 mg (BUSPAR) 0837 (Given - Provider: Makenna Squires RRodrigoNRodrigo) 15 mg, oral, Daily, First dose on Sun12/17/19 at 0900 ceFAZolin injection 2,000 mg (ANCEF) (COMPLETED) 1113 (Given - Provider: Harris Pop M.D.) 2,000 mg (rounded from 1,862.5 mg = 25 m g/kg ? 74.5 kg), intravenous, Once, On Sun12/16/19 at 1030, For 1 dose, Intra-Op, Preoperatively within 1 hour prior to surgical incision If needed, reconstitute vial per package insert instructions. S ee IVAG for administration guidelines. , , Drug Monitoring Program: Pharmacist to adjust medication dosing based on indication and drug clearance factors., Indications: Prophylaxis, surgical celecoxib capsule 400 mg (CeleBREX) (COMPLETED) 937 (Given - Provider: Mary Hutson R.N.) 400 mg, oral, Once, On Sun12/16/19 at 0930, For 1 dose, Pre- Op, Real Time Analyst, PreOp cholecalciferol (vitamin D3) tablet 2,000 Units 08 (Given - Provider: Makenna Squires R.N.) 2,000 Units, oral, Daily, First dose on Sun12/17/19 at 0900, cholecalciferol (vitamin D3) orderable was interchanged for cholecalciferol (vitamin D3) tablet/capsule 25 mcg cholecalciferol equivalent to 1000 units cholecalciferol cyanocobalamin tablet 1,000 mcg (VITAMIN B12) 836 (Given - Provider: Makenna Squires R.N.) 1,000 mcg, oral, Daily, First dose on Sun12/17/19 at 0900 enoxaparin injection 40 mg (LOVENOX) 836 (Given - Provider: Makenna Squires R.N.) 40 mg, subcutaneous, Daily, First dose on Sun12/17/19 at 0900 ferrous sulfate tablet 65 mg of iron 836 (Given - Provider: Makenna Squires R.N.) 65 mg of iron, oral, Daily, First dose on Sun12/17/19 at 0900 gabapentin tablet 600 mg (NEURONTIN) (COMPLETED) 936 (Given - Provider: Mary Hutson R.N.) 600 mg, oral, Once, On Sun12/16/19 at 0930, For 1 dose, Pre- Op, Real Time Analyst, PreOp davxwjuvnkmh-ampg-BF-Ca-minerals 9 mg ir on-400 mcg tablet 1 tablet (THERAPEUTIC-M) 836 (Given - Provid er: Makenna Squires R.N.) 1 tablet, oral, Daily, First dose on Sun12/17/19 at 0900 ondansetron ODT disintegrating tablet 4 mg (ZOFRAN-ODT) (COM PLETED) 937 (Given - Provider: Mary Hutson R.N.) 4 mg, sublingual, Once, On Sun12/16/19 a t 0930, For 1 dose, Pre-Op, When splitting ODT at bedside, handle with gloves and a pill splitter to prevent moisture contact. PARoxetine tablet 40 mg (PAXIL) 09 (Given - Provider: Makenna Squires RRodrigoNRodrigo) 40 mg, oral, Daily, First dose on Sun12/17/19 at 0900 sennosides-docusate sodium 8.6-50 mg per tablet 1 tablet (SE NOKOT-S) 2134 (Given - Provider: Carter Betts R.N.) 0837 (Given - Provider: Makenna Squires R.N.) 1 tablet, oral, 2 times daily, First dos e on Sun12/16/19 at 2100, Do not give if patient has diarrhea. Continuous Medication Order 12/15/2019 12/16/2019 12/17/2019 lactated ringers 1706 (New Bag - Provider: Jerry Tejeda RRodrigoN.) 100 mL/hr, intravenous, Continuous, Starting on Sun12/16/19 at 1 530 lactated ringers 1658 (Stopped - Provider: Jerry Tejeda R.N.) 20 mL/hr, intravenous, at 20 mL/hr, Cont inuous, Starting Sun12/16/19 at 1415, PACU & Post-Op PRN Medication Order 12/15/2019 12/16/2019 12/17/2019 bisacodyL suppository 10 mg (DULCOLAX) 10 mg, rectal, Daily PRN, constipation, Starting Sun12/16/19 at 1525, Ordered sequence of administration: polyethylene glycol, then bisacodyl until BM achieved. bupivacaine liposome (PF) 20 mL, bupivac raz 30 mL in sodium chloride (PF) 0.9 % 100 mL injection (CANCELED) 1312 (Given - Provider: Araseli CesarBRodrigoS., M.S. - Comment: abdomen)1347 (Given - Provider: Jose Rafael Chew M.D. - Comment: bilateral abdomen) As needed, Starting on Sun12/16/19 at 1312, Intra-Op droperidol injection 0.625 mg (INAPSINE) 0.625 mg, intravenous, Every 6 hours PRN , nausea, vomiting, Starting Sun12/16/19 at 1600, For 48 hours, Total of 3 doses in 24 hour period. RASS must be -2 or higher to administer. Reassess for nausea o r vomiting after at least 10 minutes. If nausea or vomiting persists administer next ordered antiemetic medications (order for antiemetic medication administration ondansetron then droperidol then promethazine). fentaNYL injection 25 mcg (SUBLIMAZE) (CANCELED) 1445 (Given - Provider: Chhaya Terrell R.N., [facility]) 25 mcg, intravenous, Every 2 min PRN, Fo r pain 4 or greater (maximum 100 mcg). If max dose of Fentanyl is reached and if pain is greater than 4, discontinue Fentanyl: give Hydromorphone, Starting on Sun12/16/19 at 1423, PACU (only) gentamicin-polymixin B 20 mg-500,000 Uni ts irrigation (DABS_MODIFIED) (COMPLETED) 1233 (Given - Provider: Araseli DonohueBRodrigoSRodrigo - Comment: Abdomen) irrigation, Once in surgery, OR use only , Starting on Sun12/16/19 at 1020, For 1 dose, Intra-Op, *IRRIGATION ONLY* HYDROmorphone (PF) injection 0.3 mg (DILAUDID) 0.3 mg, intravenous, Every 2 hour PRN, m oderate pain or score 4-6 of 10, severe pain or score 7-10 of 10, Starting Sun12/16/19 at 1525, For breakthrough pain unrelieved 30 minutes after PRN oral pain me dication is used or if unable to take or al pain medication when pain is 4 or greater. melatonin tablet 5 mg 5 mg, oral, Bedtime PRN, sleep, Starting on Sun12/16/19 at 2122 naloxone injection 0.2 mg (NARCAN) 0.2 mg, intravenous, As needed, respirat ory depression, Starting Sun12/16/19 at 1525, For respiratory rate less than 8 breaths per minute or RASS score of -3, - 4, -5. Apply oxygen to keep oxygen saturations greater than 90% and notify service. ondansetron (PF) injection 4 mg (ZOFRAN) 4 mg, intravenous, Every 6 hours PRN, na usea, vomiting, Starting Sun12/16/19 at 1600, For 48 hours, Reassess for nausea or vomiting after at least 10 minutes. If nausea or vomiting persists administer n ext ordered antiemetic medications (orde r for antiemetic medication administration ondansetron then droperidol then promethazine). oxyCODONE IR tablet 10 mg (ROXICODONE) 1 858 (Not Given - Provider: Dorota Tejeda RSarah. - Reason: Patient/family refused - Comment: Pt only wanted to take 5 mg.)2301 (Given - Provider: Laurence OttoN.) 0356 (Given - Provider: Carter Betts R.N.)0954 (Given - Provider: Makenna Squires RRodrigoNRodrigo) 10 mg, oral, Every 4 hours PRN, moderate pain or score 4-6 of 10, severe pain or score 7-10 of 10, Starting on Sun12/16/19 at 1525 oxyCODONE IR tablet 5 mg (ROXICODONE) 18 51 (Given - Provider: Dorota Tejeda, R.N.) 5 mg, oral, Every 4 hours PRN, mild pain or score 1-3 of 10, Starting on Sun12/16/19 at 1525 polyethylene glycol powder packet 1 packet (MIRALAX) 1 packet, oral, Daily PRN, constipation, Starting Sun12/16/19 at 1525, Ordered sequence of administration: polyethylene glycol, then bisacodyl until BM achieved. Avoid mixing with starch-based thickened liquids. promethazine injection 6.25 mg (PHENERGAN) 6.25 mg, intravenous, Every 6 hours PRN, nausea, vomiting, Starting Sun12/16/19 at 1525, For 48 hours, RASS must be -2 or higher to administer. Reassess for nausea/vomiting after at least 10 minutes. If nausea or vomiting persists administer next ordered antiemetic medications (order for antiemetic medication administration ondansetron then droperidol then promethazine). scopolamine base 1 mg over 3 days 1 patch (TRANSDERM SCOP) ( CANCELED) 0902 (Medication Applied - Provider: Mary Hutson R.N.)1525 (Due: Medication Removed - Provider: Dorota Tejeda R.N. - Comment: Time automatically adjusted from order being discontinued) 1 patch, transdermal, Administer over 72 Hours, Once as needed, nausea, vomiting, Starting on Sun12/16/19 at 0925, For 1 dose, Pre-Op, Contains 1.5 mg to deliver 1 mg/72 hours. tranexamic acid 3 g in NaCl 0.9% 75 mL topical solution (COM PLETED) 1312 (Given - Provider: Katherine Camejo, M.S. - Comment: abdomen) 75 mL, topical, Once in surgery, OR use only, Starting on Sun12/16/19 at 1020, For 1 dose, Intra-Op, For topical use ONLY documented in this encounter Additional Health Concerns Assessment Noted Time PHQ-9 Depression Total Score: 19 10/09/2019 11:11 AM C documented as of this encounter Care Teams Vacuum Caster Relationship Specialty Start Date End Date Annemarie Montiel M.D. PCP - General 04/19/172199 [address] [place] [address] documented as of this encounter
--- OUTSIDE RECORDS SUMMARY | 2022-07-24 15:11 | XMS_ITS | Encounter Summary ---
:1985 Author Organization [facility] Address [address] [place] [address] Care Team Providers Name Role Phone Annemarie Montiel M.D. Primary Care Provider [phone] Reason for Visit Auth/Cert Specialty Diagnoses / Procedures Referred By Contact Refer red To Contact Diagnoses Panniculitis Bariatric surgery status Panniculitis [M79.3] Procedures HI EXCISN EXCESS SKIN/TISS ABD PANNICULECTOMY Referral ID Status Reason Start Date Expiration Date Visits Requ ested Visits Authorized [id number] 1 1 Encounter Details Date Type Department Care Team Description 12/16/2019 Anesthesia Event RST ROMB MAIN OR Harris Pop M.D. [address] [place] [phone] 1216 [address] [facility] Luciano Reyes M.D. [address] [place] [phone] [place] [phone] Anesthesia Record Procedure Summary Procedure Name Responsible Anesthesia Start Anesthesia Stop Time Anesthesiologist Time PANNICULECTOMYKiesha Michael J, M.D. 12/16/19 1044 12/16/19 1425 Possible Lily carpenter. Events Date Time Event Comment 12/16/2019 1044 An Start Machine/Equipmen t Checked Infection Precautions Foll owed Procedure/Site Verified NPO Sta tus Verified Supine Standard ASA Mon itors Applied 1044 In Room 1058 An Induction 1100 1104 An Intubation 1106 Turnover to Proceduralist 1130 Proc Start 1355 Proc Fin 1401 Turnover to ANE Staff 1411 Airway Removal Criteria Met 1411 Extubation/Airway Removed 1413 an stop data 1417 Out of Room 1425 An End I completed my h andoff to the receiving staff during [facility] we 1. Identified the patient 2. Ident ified the responsible provider 3. Revi ewed the pertinent medical history 4. Discussed the surgical course 5. Review ed intra-op anesthesia management and i ssues during anesthesia 6. Set expectati ons for post-procedure period 7. Allowe d opportunity for questions and ac knowledgement of understanding. Name Total fentanyl injection 50 mcg/mL 250 mcg lidocaine 2% (mg) injection 60 mg propofol 10 mg/mL 225 mg propofol 10 mg/mL infusion 959.56 mg phenylephrine 100 mcg/mL injection 250 mcg ePHEDrine PF 5 mg/mL syringe injection 50 mg ondansetron 4 mg/2 mL injection 4 mg sugammadex 100 mg/mL injection 150 mg glycopyrrolate 0.2 mg/mL injection 0.2 mg ceFAZolin injection 2,000 mg (ANCEF) 2 g dexamethasone 4 mg/mL injection 4 mg ketamine 10 mg/mL injection 20 mg HYDROmorphone PF 2 mg/mL injection 1 mg droperidol 2.5 mg/mL injection 0.625 mg Lactated Ringers Free Drip 1,600 mL Agents No agents on file. Blood No blood administrations on file. Lines, Drains, and Airways Type Details Placement Removal Closed/Suction Drain 12/16/19; 1301; 1; 12/16/19 1301 by Kurtis AnteriorDeb Christopher O, Lateral; Leg; Bulb; 15 R.N. Fr. Peripheral IV Placement Date: 12/16/19948 by 12/17/19925 b y 12/16/19; Placement Stephanie Asif E lizabeth A, Time: 948; Catheter R.N. Size: 20 G; Orientation: Left; Location: Hand; Site Prep: Chlorhexidine (Preferred); Technique: (tbl); Insertion Attempts: 1; Removal Date: 12/17/19; Removal Time: 925; Removal Reason: Patient discharged ETT Placement Date: 12/16/19 1104 by 12/16/19 1411 b y 12/16/19; Placement Cass Hudson APRN, [place] i, Scott T, Time: 1103 (created via [employer]INGUAL [employer]MENT[employer] S[employer] TEACHER R.N. procedure documentation); Mask Ventilation: Easy mask; Type: Standard ETT; Single Lumen Tube Size: 7 mm; Cuffed: Yes; Blade Size: MAC 3; Location: Oral; Removal Date: 12/16/19; Removal Time: 1411 Indwelling Urinary Placement Date: 12/16/19 1133 by 12/16/19 140 5 by Catheter 12/16/19; Placement Nicki Buitrago R.N. Tanny, C hristopher O, Time: 1133; Inserted R.N. by: Eva Buitrago RN; Type: Non-latex; Size: 16 Fr.; Balloon Size: 10 mL; Urine Returned: Yes (clear, yellow); Removal Date: 12/16/19; Removal Time: 1405; Removal Reason: Criteria for drain removal met (RETIRED) Incision 12/16/19; 1208; 12/16/19 1208 by 07/26/21 141 8 by Abdomen; Bilateral; [facility], [facility] 07/26[facility] (Removed by Bashir Sandra background completion Automated Batch Job utility); 1418 (Removed by background completion utility) Closed/Suction Drain 12/16/19; 1257; 1; 12/16/19 1257 by 0 1144 by Right, Anterior, Brad Boyd, Nidia Noel R, Lateral; Thigh; Bulb; R.N. L.P.N. 15 Fr.; Criteria for drain removal met (RETIRED) Incision 12/16/19; 1354; Other 12/16/19 1354 by 1418 by (Comment); Umbilicus; [facility], [facility] (Removed by Bashir Sandra background completion Automated Batch Job utility); 1418 (Removed by background completion utility) documented in this encounter Social History Tobacco Use Types Packs/Day Years [...] How often do you attend mandaen or tenriism Never 07/04/2019 services? Do you belong to any clubs or organizations such as No 07/04/2019 mandaen groups, unions, fraSqwiggle or athletic groups, or school groups? 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 - 12/16/2019 2:54 PM CST Patient: Maria Alejandra Gomez Procedure Summary Date: 12/16/19 Room / Location: [place] [address] ROMB 01 1575 / [facility] in [place], [place] Anesthesia Start: 1044 Anesthesia Stop: 1424 Procedure: PANNICULECTOMY, Possible Lily de lis. (N/A ) Diagnosis: Panniculitis (Panniculitis [M79.3].) Provider: Clare Deleon M.B.BRodrigoSRodrigo Responsible Provider: Harris Pop M.D. Anesthesia Type: general ASA Status: 2 Anesthesia Type: general Last vitals Vitals Value Taken Time BP 119/65 12/16/2019 2:45 PM Temp 36.5 ??C 12/16/2019 2:30 PM Pulse 83 12/16/2019 2:54 PM Resp 12 12/16/2019 2:54 PM SpO2 98 % 12/16/2019 2:54 PM Vitals shown include unvalidated device data. Please reference Vitals flowsheet for most recent vital signs. Anesthesia Post Evaluation Patient Disposition: general care unit Cardiovascular status: hemodynamics (HR & BP) acceptable Respiratory status: patent airway with spontaneous effort Temperature: normothermic Oxygen requirements: nasal cannula Level of consciousness: awake Pain score: pain adequately controlled and/or at baseline Post Op nausea/vomiting: none Hydration status: euvolemic Electronically signed by: Cassius Mosher M.D. 12/16/19 2:55 PM SUPPORT SERVICES SPECIALIST ORT SERVICES SPECIALIST Anesthesia Procedure Notes - Hipolito Jones R.N., ARELYN - 12/16/2019 12:43 PM CSTAssociated Order(s): Airway Airway Date/Time: 12/16/2019 11:04 AM Performed by: Cass Fuentes APRN, [employer] TE[employer]ER Authorized by: Harris Pop M.D. Patient location during procedure: OR / Procedure Area PROCEDURE DETAILS: Mask difficulty assessment: easy mask Final airway type: direct laryngoscopy, intubation Laryngeal manipulation: yes Final airway difficulty of direct laryngoscopy (DL): 0-easy Final best view of glottic structures - Cormack/Lehane Score: grade 2A ETT location: oral Adult blade type: MAC 3 Adult tube size: 7 Adult ETT distance at teeth/gum: 21 Oral tube type: standard ETT Cuffed: yes Number of attempt to successful placement: 1 Airway confirmation: bilateral breath sounds, positive ETCO2 and bilateral chest rise Other previous techniques attempted: none PRE PROCEDURE DETAILS: Pre evaluation for airway management: procedure Urgency: elective Preop assessment of probable difficulty: no difficulty anticipated Preoxygenation: bag valve mask SEDATION / ANESTHESIA Anesthesia method: anesthesia POST PROCEDURE DETAILS: Procedure outcome: successful Airway event: no complications ORT SERVICES SPECIALIST Anesthesia Preprocedure Evaluation - Harris oPp M.D. - 12/16/2019 10:59 AM CST Preprocedure Anesthesia & H&P Assessment Procedure Summary Anesthesia Start Date/Time: 12/16/19 1044 Procedure: PANNICULECTOMY, Possible Lily de lis. (N/A ) Diagnosis: Panniculitis [M79.3] Pre-op diagnosis: Panniculitis [M79.3]. Location: [address] 1575 / [facility] in [place], [place] Provider: Clare Deleon M.B.B.S. Pertinent components of the patient's history including current problem list, medical history, surgical history, family history, social history, medications and allergies were reviewed. Present illnessand pre-op diagnosis were confirmed. The planned surgery / procedure was verified with the patient /legal guardian. The patient's general health condition remains unchanged PROBLEM LIST Relevant Problems PSYCH (+) Depression Major Recurrent (HCC) GENETICS (+) Hypokalemia MSK/RHEUM (+) Panniculitis ID (+) Herpes Genitalis OBJECTIVE PHYSICAL EXAMINATION Airway (HEENT) Mallampati: II TM Distance: >3 FB Mouth Opening: >3 cm Cardiovascular Rhythm: Regular Functional Capacity: >4 METS Pulmonary Pulmonary Assessment: Clear General / Constitutional Constitutional Assessment: Normal ASSESSMENT / PLAN ANESTHESIA PLAN ASA: 2 Anesthesia Plan: general Patient seen and allergies reviewed, anesthesia plan and risks discussed directly with patient /legal guardian or through an jalousies installer. The use of blood products not discussed ORT SERVICES SPECIALIST documented in this encounter Plan of Treatment Upcoming Encounters Date Type Specialty Care Team Description 08/17/2022 Procedure visit Neurology Marina Winter M.D., M.P.H. [address] [place] [phone] (Wo rk) Scheduled Procedures Name Priority Associated Diagnoses Date/Time LIFT THIGH Excessive And Redundant Skin And Subcutaneous Tissue documented as of this encounter Procedures Procedure Name Priority Date/Time Associated Comments Diagnosis LDA ANE ENDOTRACHEAL Routine 12/16/2019 12:43 Res ults for this AIRWAY PM SUPPORT SERVICES SPECIALIST procedure are i n the results section. documented in this encounter Results LDA ANE ENDOTRACHEAL AIRWAY (12/16/2019 12:43 PM SUPPORT SERVICES SPECIALIST) Narrative Hipolito Jones R.N., CCRN - 0 12:43 PM SUPPORT SERVICES SPECIALIST Hipolito Jones R.N., CCRN ? 12/16/2019 12:57 PM Airway Date/Time: 12/16/2019 11:04 AM Performed by: Cass Fuentes APRN, CRN A Authorized by: Harris Pop M.D. Patient location during procedure: OR / Procedure Area PROCEDURE DETAILS: Mask difficulty assessment: easy mask Final airway type: direct laryngoscopy, intubation Laryngeal manipulation: yes Final airway difficulty of direct laryng oscopy (DL): 0-easy Final best view of glottic structures - Cormack/Lehane Score: grade 2A ETT location: oral Adult blade type: MAC 3 Adult tube size: 7 Adult ETT distance at teeth/gum: 21 Oral tube type: standard ETT Cuffed: yes Number of attempt to successful placemen t: 1 Airway confirmation: bilateral breath so unds, positive ETCO2 and bilateral chest rise Other previous techniques attempted: non e PRE PROCEDURE DETAILS: Pre evaluation for airway management: pr ocedure Urgency: elective Preop assessment of probable difficulty: no difficulty anticipated Preoxygenation: bag valve mask SEDATION / ANESTHESIA Anesthesia method: anesthesia POST PROCEDURE DETAILS: ? Procedure outcome: successful ?? Airway event: no complications Harris Pop M.D. ANESTHESIA ORDERABLES documented in this encounter Visit Diagnoses Not on filedocumented in this encounter Administered Medications Inactive Administered Medications - up to 3 most recent administrations Medication Order MAR Action Action Date Dose Rate Site ceFAZolin injection 2,000 mg Given 12/16/2019 11:13 AM SUPPORT SERVICES SPECIALIST 2 g (ANCEF) 2,000 mg (rounded from 1,862.5 mg = 25 mg/kg ? 74.5 kg), intravenous, Once, On Sun12/16/19 at 1030, For 1 dose, Intra-Op, Preoperatively within 1 hour prior to surgical incision If needed, reconstitute vial per package insert instructions. See IVAG for administration guidelines. , , Drug Monitoring Program: Pharmacist to adjust medication dosing based on indication and drug clearance factors., Indications: Prophylaxis, surgical dexamethasone injection (DECADRON) Given 12/16/2019 11:18 AM SUPPORT SERVICES SPECIALIST 4 mg As needed, Starting on Sun12/16/19 at 1118, Anesthesia Intra-op droperidoL injection (INAPSINE) Given 12/16/2019 1:26 PM SUPPORT SERVICES SPECIALIST 0.625 mg intravenous, As needed, Starting on Sun12/16/19 at 1326, Anesthesia Intra-op ePHEDrine (PF) injection Given 12/16/2019 1:53 PM SUPPORT SERVICES SPECIALIST 5 mg intravenous, As needed, Starting on Sun12/16/19 at 1122, Anesthesia Intra-op Given 12/16/2019 1:34 PM SUPPORT SERVICES SPECIALIST 5 mg Given 12/16/2019 1:22 PM SUPPORT SERVICES SPECIALIST 5 mg fentaNYL injection (SUBLIMAZE) Given 12/16/2019 2:11 PM SUPPORT SERVICES SPECIALIST 50 mcg intravenous, As needed, Starting on Sun12/16/19 at 1113, Anesthesia Intra-op Given 12/16/2019 11:42 AM SUPPORT SERVICES SPECIALIST 50 mcg Given 12/16/2019 11:13 AM SUPPORT SERVICES SPECIALIST 50 mcg glycopyrrolate injection (ROBINUL) Given 12/16/2019 11:19 AM SUPPORT SERVICES SPECIALIST 0.2 mg intravenous, As needed, Starting on Sun12/16/19 at 1119, Anesthesia Intra-op HYDROmorphone (PF) injection (DILAUDID) Given 12/16/2019 2:11 PM SUPPORT SERVICES SPECIALIST 0.4 mg As needed, Starting on Sun12/16/19 at 1242, Anesthesia Intra-op Given 12/16/2019 1:08 PM SUPPORT SERVICES SPECIALIST 0.2 mg Given 12/16/2019 12:42 PM SUPPORT SERVICES SPECIALIST 0.4 mg ketamine injection (KETALAR) Given 12/16/2019 11:28 AM SUPPORT SERVICES SPECIALIST 20 mg As needed, Starting on Sun12/16/19 at 1128, Anesthesia Intra-op lactated ringers New Bag 12/16/2019 12:25 PM SUPPORT SERVICES SPECIALIST intravenous, Continuous Infusion: Per Instructions PRN, Starting on Sun12/16/19 at 1046, Anesthesia Intra-op New Bag 12/16/2019 10:46 AM SUPPORT SERVICES SPECIALIST lidocaine (PF) (cardiac) injection Given 12/16/2019 11:00 AM SUPPORT SERVICES SPECIALIST 60 mg intravenous, As needed, Starting on Sun12/16/19 at 1100, Anesthesia Intra-op ondansetron (PF) injection (ZOFRAN) Given 12/16/2019 1:26 PM SUPPORT SERVICES SPECIALIST 4 mg intravenous, As needed, Starting on Sun12/16/19 at 1326, Anesthesia Intra-op phenylephrine injection Given 12/16/2019 1:22 PM SUPPORT SERVICES SPECIALIST 50 mcg intravenous, As needed, Starting on Sun12/16/19 at 1119, Anesthesia Intra-op Given 12/16/2019 12:53 PM SUPPORT SERVICES SPECIALIST 50 mcg Given 12/16/2019 12:50 PM SUPPORT SERVICES SPECIALIST 50 mcg propofol 10 mg/mL infusion Rate/Dose 12/16/2019 1:28 30 mcg/kg/min 1 3.4 mL/hr (DIPRIVAN) Change PM SUPPORT SERVICES SPECIALIST intravenous, Continuous Infusion: Per Instructions PRN, Starting on Sun12/16/19 at 1104, Anesthesia Intra-op Rate/Dose Change 12/16/2019 12:47 PM SUPPORT SERVICES SPECIALIST 50 mcg/kg/min 22.4 mL/hr Rate/Dose Change 12/16/2019 12:38 PM SUPPORT SERVICES SPECIALIST 75 mcg/kg/min 33.5 mL/hr propofoL injection (DIPRIVAN) Given 12/16/2019 11:01 AM SUPPORT SERVICES SPECIALIST 75 mg intravenous, As needed, Starting on Sun12/16/19 at 1100, Anesthesia Intra-op Given 12/16/2019 11:00 AM SUPPORT SERVICES SPECIALIST 150 mg sugammadex injection (BRIDION) Given 12/16/2019 1:39 PM SUPPORT SERVICES SPECIALIST 150 mg As needed, Starting on Sun12/16/19 at 1339, Anesthesia Intra-op documented in this encounter Additional Health Concerns Assessment Noted Time PHQ-9 Depression Total Score: 19 10/09/2019 11:[address] documented as of this encounter Care Teams Cotton Program Technician Relationship Specialty Start Date End Date Annemarie Montiel M.D. PCP - General 04/19/17 [address] [place] [phone] documented as of this encounter
--- OUTSIDE RECORDS SUMMARY | 2022-07-24 15:11 | XMS_ITS | Encounter Summary ---
:1985 Author Organization [facility] Address [address] [place] [address] Care Team Providers Name Role Phone Annemarie Montiel M.D. Primary Care Provider [phone] Encounter Details Date Type Department Care Team Description 02/25/2020 Clinical Communication Division of Plastic Liam white, Surgery in [place], Surendra Sparks.B.S. [place] [address] [facility] [address] [place] [address] [phone] Social History Tobacco Use Types Packs/Day Years [...] 03/29/2020 relatives? How often do you attend alevism or restorationism Never 07/04/2019 services? 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 [address] [phone] (Wo rk) Scheduled Procedures Name Priority Associated Diagnoses Date/Time LIFT THIGH Excessive And Redundant Skin And Subcutaneous Tissue documented as of this encounter Visit Diagnoses Not on filedocumented in this encounter Additional Health Concerns Assessment Noted Time PHQ-9 Depression Total Score: 15 02/20/2020 12:57 PM C DT documented as of this encounter Care Teams Trailer Park Manager Relationship Specialty Start Date End Date Annemarie Montiel M.D. PCP - General 04/19/[address] [phone] documented as of this encounter
--- OUTSIDE RECORDS SUMMARY | 2022-07-24 15:11 | XMS_ITS | Encounter Summary ---
:[address] [facility] Address [address] [place] [address] Care Team Providers Name Role Phone Annemarie Montiel M.D. Primary Care Provider [phone] Reason for Referral Outpatient (Routine) - Closed Specialty Diagnoses / Procedures Referred By Contact Refer red To Contact Plastic Surgery Leyla River P.A.-C., [facility] [address] [place], [place] [address] Referral ID Status Reason Start Date Expiration Date Visits Requ ested Visits Authorized [id number] Closed 12/30/2019 12/29/2020 1 1 CH WRITER Outpatient (Routine) - Closed Specialty Diagnoses / Procedures Referred By Contact Refer red To Contact Plastic Surgery Leyla River P.A.-C., [facility] [address] [place], [place] [address] Referral ID Status Reason Start Date Expiration Date Visits Requ ested Visits Authorized [id number] Closed 12/30/2019 12/29/2020 1 1 CH WRITER Reason for Visit Outpatient (Routine) - Closed Specialty Diagnoses / Procedures Referred By Contact Refer red To Contact [facility] [address] [place] [address] Referral ID Status Reason Start Date Expiration Date Visits Requ ested Visits Authorized [id number] Closed 12/12/2019 12/11/2020 1 1 Encounter Details Date Type Department Care Team Description 12/30/2019 Office Visit Division of Plastic Leyla River Fol low Up Examination Surgery in [place], P.Rohini., P .A. Postoperative Visit [place] [address] Denise Dye (Primary Dx) [address] [place] [address] [phone] Social History Tobacco Use Types Packs/Day Years [...] 03/29/2020 relatives? How often do you attend samaritan or moravian Never 07/04/2019 services? 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 - 12/30/2019 2:30 PM CST SUBJECTIVE CHIEF COMPLAINT / REASON FOR VISIT Post operative evaluation. HISTORY OF PRESENT ILLNESS is a 34 [address] Deleon who underwent panniculectomy on December 16, 2019. She presents for a follow-up visit. She is overall doing very well with 0/10 pain. She continues to have [address] that has drained 40 and 30 cc of fluid for the past 2 days. She has been wearing the compressive abdominal binder 28/05 as directed. She states that she has been slightly active around the house, as she has 7 children at home and has to a lot of the chores. She denies any signs or symptoms of infection. She denies any drainage from her incision. OBJECTIVE PHYSICAL EXAM General: Patient is alert and oriented times three. In no acute distress. Abdomen: Incision is covered with surgical tape, but appears clean, dry and intact without drainage.No erythema, ecchymosis, or obvious signs of fluid collections. No evidence of cellulitis or necrosis. Umbilicus shows mild erythema, but does not appear cellulitic in nature. Drain site is clean without concern for infection. There is mild erythema suggestive of irritation, but no signs of cellulitis. ASSESSMENT / PLAN is doing well. Unfortunately her drain is not meeting criteria for removal. We discussed the importance of her decreasing her amount of activity to allow proper healing of the incision and for the drain to be removed. She expresses understanding. She will remove the drain when it is meetingcriteria for removal. I recommended to the patient that she allow the drain to decrease in volume closer to 25 cc of fluid per day. All postoperative instructions pertaining to activity, weight restrictions and compression garments were reviewed with the patient. Signs/symptoms of an infection were reviewed with the patient and she was instructed to call us immediately if any of these occur. Patient has all appropriate phone numbers to call in case she has questions or concerns. Photographs obtained. We will plan to see her back in approximately 2-3 weeks for follow-up and for removal of the surgical tape, but certainly sooner if needed. She will call us if she has questions or concerns before thistime All questions were asked and answered per patient report. It was an absolute pleasure taking care ofMs. Gomez. CH WRITER documented in this encounter Plan of Treatment Upcoming Encounters Date Type Specialty Care Team Description 08/17/2022 Procedure visit Neurology Marina Winter M.D., M.P.H. [address] [place], [place] [phone] (Wo rk) Scheduled Procedures Name Priority Associated Diagnoses Date/Time LIFT THIGH Excessive And Redundant Skin And Subcutaneous Tissue Scheduled Referrals Name Type Priority Associated Diagnoses Order S chedule Plastic Surgery Outpatient Referral Routine [facility]pec [facility]: Post Op (clinic) 01/14/2020 (Approximate), Expires: 12/30/2022 Plastic Surgery Outpatient Referral Routine [facility]: Post Op (clinic) 03/09/2020 (Approximate), Expires: 12/30/2022 documented as of this encounter Visit Diagnoses Diagnosis Follow Up Examination Postoperative Visi t - Primary documented in this encounter Additional Health Concerns Assessment Noted Time PHQ-9 Depression Total Score: 19 10/09/2019 11:[address] documented as of this encounter Care Teams Plant Maintenance Supervisor Relationship Specialty Start Date End Date Annemarie Montiel M.D. PCP - General 04/19/172[address] [place] [address] documented as of this encounter
--- OUTSIDE RECORDS SUMMARY | 2022-07-24 15:11 | XMS_ITS | Encounter Summary ---
:1985 Author Organization [facility] Address [address] [place] [address] Care Team Providers Name Role Phone Annemarie Montiel M.D. Primary Care Provider [phone] Reason for Visit Reason Comments Depression PHQ9 Encounter Details Date Type Department Care Team Description 07/22/2020 Clinical Department of Annemarie Montiel Depression (PHQ9) Communication Family MedicineNadia M.D. [facility], [address] [facility] [address] [address] [facility] [phone] [place], [place] (Work) [address] Social History Tobacco Use [...] 03/29/2020 relatives? How often do you attend confucianism or orthodoxy Never 07/04/2019 services? 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 documented in this encounter Plan of Treatment Upcoming Encounters Date Type Specialty Care Team Description 08/17/2022 Procedure visit Neurology Marina Winter M.D., M.P.H. [address] [place], [place] [phone] (Wo rk) Scheduled Procedures Name Priority Associated Diagnoses Date/Time LIFT THIGH Excessive And Redundant Skin And Subcutaneous Tissue documented as of this encounter Visit Diagnoses Not on filedocumented in this encounter Additional Health Concerns Assessment Noted Time PHQ-9 Depression Total Score: 12 06/10/2020 1:20 PM CD T documented as of this encounter Care Teams Research Worker Kitchen Relationship Specialty Start Date End Date Annemarie Montiel M.D. PCP - General 04/19/[address] [place] [address] documented as of this encounter
--- OUTSIDE RECORDS SUMMARY | 2022-07-24 15:11 | XMS_ITS | Encounter Summary ---
:[address] [facility] Address [address] [place] [address] Care Team Providers Name Role Phone Annemarie Montiel M.D. Primary Care Provider [phone] Encounter Details Date Type Department Care Team Description 04/23/2020 Orders Only Department of Annemarie Song, Migraine Headache MedicinePorfirio M.D. (Primary Dx) Clinic, in [facility] [address] [place], [place] [address] [place], [place] [phone] (Wo rk) [address] [phone] Social History Tobacco Use Types Packs/Day Years [...] 03/29/2020 relatives? How often do you attend mormonism or baptism Never 07/04/2019 services? 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 [address] [place], [place] [phone] (Wo rk) Scheduled Procedures Name Priority Associated Diagnoses Date/Time LIFT THIGH Excessive And Redundant Skin And Subcutaneous Tissue documented as of this encounter Visit Diagnoses Diagnosis Migraine Headache - Primary documented in this encounter Additional Health Concerns Assessment Noted Time PHQ-9 Depression Total Score: 15 2020 3:09 PM CD T documented as of this encounter Care Teams Thermometer Production Worker Relationship Specialty Start Date End Date Annemarie Montiel M.D. PCP - General 04/19/[address] [address] documented as of this encounter
--- OUTSIDE RECORDS SUMMARY | 2022-07-24 15:11 | XMS_ITS | Encounter Summary ---
:1985 Author Organization [facility] Address [address] [place] [address] Care Team Providers Name Role Phone Annemarie Montiel M.D. Primary Care Provider [phone] Reason for Visit Behavioral Health (Routine) - Closed Specialty Diagnoses / Procedures Referred By Contact Refer red To Contact Psychiatry / Diagnoses Anxiety Generalized Disorder Annemarie Montiel, [facility] Psych[facility] and MR[facility]DR[facility] Psychology [address] [place] [phone] Referral ID Status Reason Start Date Expiration Date Visits Requ ested Visits Authorized [id number] Closed 06/01/2020 06/01/2021 1 1 Encounter Details Date Type Department Care Team Description 06/10/2020 Comprehensive Visit Department of Ortiz, Anxiety Generalized Family Medicine, Hodan Zuniga, Disorder [facility], L[facility] in [place], [address] [place] [address] [address] [facility] [place] [address] [place], [place] [phone] [address] (Work) [phone] Social History Tobacco Use Types Packs/Day Years [...] 03/29/2020 relatives? How often do you attend religion or yazdanism Never 07/04/2019 services? 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 - 06/10/2020 1:30 PM CDT Psychosocial Assessment SUBJECTIVE DEMOGRAPHIC INFORMATION Referral Source: Provider/Service Referral Name: Dr. Montiel Referral Reason: Coping, adjustment and support Person(s) present during interview: Patient Primary care clinic and provider: [facility] Porfirio / Annemarie Montiel M.D. Primary Language: [place] Zealander Air/Ocean Export Clerk Services Used: No Legal Information: Legal Decision Maker: Self Advance Directives Status: Not Activated Citizenship: Citizenship: [place] Citizen Resident Status: [place] Resident REASON FOR CONSULT Coping, adjustment and support Disclaimer: The patient was advised regarding the various topics to be interviewed during this evaluation. Patient consented to proceed. The information provided in the assessment is based on review ofthe medical record as well as the face to face interview with the patient. The patient was advised that the content of this interview will be shared with the health care team. It was discussed with thepatient that staff are mandated reporters and they reported understanding. SOCIAL HISTORY Early growth and development: The patient met social and developmental milestones as expected. Marital Status / Family / Household Status: Patient has four children. Three are with, Samir, the adam she is living with. Support Systems: family, friends, co workers, extended family. We have not received permission to contact them. Primary caregiver: Self Accompanied by/Relationship: Presented independently. Spirituality / Sabianism / Culture: History: Education: High school (9-12/GED) Employment: Currently Employed Works at [employer] Psychosocial Risk Factors impacting the patient: Limited Social Support, Trauma/Stress Abuse, Neglect, Maltreatment, Trauma: Current: None reported. Past: None reported. ENVIRONMENTAL SUPPORTS Current Living Situation: Patient resides in [facility] with her 4 children and the father of her children Patient's Home Environment: House Care Facility Name (if applicable): none Anticipated modifications to the patient's home environment: None FUNCTIONAL STATUS (ADL's and IADL's) Functional Status: Independent Level of Assistance: Independent Dressing: Independent Feeding: Independent Bathing: Independent Grooming: Independent Toileting: Independent Transfer to/from Bed, Chair, Etc.: Independent Mobility: Independent Meal Prep: Independent Medication Setup/Administration: Independent Telephone Use: Independent Housekeeping: Independent Shopping: Independent Managing Finances: Independent Behavior: Oriented Communication: Can write, Talks, Understands speaking, Understands [place]ander It is anticipated that the patient will need assistance with None. ASSISTIVE DEVICES Patient has the following equipment: Eyeglasses Patient anticipates potentially needing the following additional equipment: None Transportation needs: Independent to drive SERVICES REQUESTED MANAGER PROJECT MANAGEMENT Formal and Informal Resources: 1. Family, friends, co workers, providers. FINANCES/INSURANCE Primary insurance: [facility] Secondary insurance: Income Information Does the Patient have any Financial Concerns?: Yes Income Source: Employed Income/Expense Information: Expenses exceed income ADVANCE DIRECTIVES Full Code discussed. No directives. DISCHARGE PLANNING None OBJECTIVE MENTAL HEALTH Mental Health History: Patient presented to the ED on 10-31-2017. Patient shared that she was havingmental health concerns because of her relationship with her at that time. Notes having some thoughts of self harm but no plans to act on those thoughts. At that time she had never met with a therapist. 07-23-2018 she had weight loss surgery while living briefly in [place]. Patient shared that she enjoyed living in [place] it was a new start for her family however due to her own health and health of her father she and her children returned to [place]. Patient shared that her did not returnwith her he waited a month as he enjoyed [place]. Patient shared that she did divorce her even though they are now living together. Patient shared that her relationship with the father or her children is stressful. Patient shared that she has had anxiety and depression for many years however during the past 3 months her anxiety has become overwhelming. Patient shared that work, her children, her mother's anxiety have all increased her anxiety. Patient shared that she always thought she could manage her anxiety because she is strong just like her mother. When her mother approached her about her anxiety she laughed now patient is seeing the same symptoms in herself. Patient shared that she hasn't been able to work as much recently because of feeling overwhelmed. There is one staff at her job that causes an increase in stress. She shared that when she is working her children are constantly texting her with questions/problems. She shared that she never gets a break. She shared that when she is home her children can increase her anxiety which she feels bad about. Her has been picking up additional jobs because of her limited work hours. Patient shared that this is financially nice however she gets limited help with the children. Which was apparent when she was here today as her phone kept buzzing with messages even though their father was in the home. Patient reports that the medication she was given is helpful for sleep however isn't helpful for heranxiety because she has to be able to functioning in her daily activities. Current Psychological Symptoms: Patient Appearance: Healthy Behaviors Observed: Pleasant, Interactive Patient Level of Consciousness: Alert and oriented Status of Patient's Memory: Intact Patient Cooperation: Cooperative Patient Mood: Euthymic Patient Affect: Mood-congruent Quality of Patient's Speech: Within normal limits for volume, rate and tone Descriptor of Thought Content: No abnormality Thought Process Descriptor: Intact Appetite: Unchanged Weight Status: Stable Pain Status: No Pain Nutrition Status: Adequate Nutrition Anhedonia: Endorses decreased enjoyment Energy Status: Stable Concentration: Stable Perception: The patient denies perceptual disturbance Anxiety Symptoms: Generalized worries Depressive Symptoms: Depressions in response to external stressors Level of Judgement: Intact Suicide Risk and Safety Risk Assessment: Attempted suicide within last 30 days?: No Substance abuse history or abuse within last 30 days?: No Attempting or threatening suicide?: No Attempting or threatening self-harm?: No Isolated from others?: No Coping with recent loss/disruption in support system?: No Notes some suicidal thoughts however has no plans as she wants to be available for her children. Her children being home during COVID has increased anxiety especially when it was related to school work. Patient worries about what the coming school year will look like and if she should be buying supplies. Homicidal: Homicidal Risk Current Homicidal Ideation: No Other Mental Health Assessments PHQ 9 Score: 12 BENITA 7 Score: 18 SUBSTANCE USE None smoker Occasional alcoholic drink Current Stressors 1. Work 2. Children 3. Relationship with the father of her children Coping Skills/Strengths Self-talk and Family support Resources: 1. Coronavirus and anxiety 2. Deep breathing 3. Guided imagery Reports that she enjoys movie nights in the living room with her children. Patient also has her two boys helping with an apartment complex which has been enjoyable. ASSESSMENT / PLAN IMPRESSION Patient endorses having little interest/pleasure in doing things, feeling down/depressed, and trouble with sleep without medication. Patient shared that she has little energy and at times feels bad about herself. She also notes trouble concentrating and difficulties getting things done at home. Patient also expresses high levels of anxiety/nervousness. She shared that she worries about severalthings and trouble relaxing. In addition she shared that she is restless and can easily become annoyed. INTERVENTIONS DSM-V: 1. Anxiety Generalized Disorder--now with additional situational stressors 2. Depression Major Recurrent (HCC) PLAN ?? Motivation for treatment/plan: Patient is motivated to get control over her anxiety. She utilizeddeep breahting and guided imagery in our appointment. Anticipated barriers to the transition of care/plan: several stressors with her children, financial Face to face time (for billing purposes) 60 minutes total time, 45 minutes for counseling. Sapna NolanSRodrigoW. 06/10/2020 documented in this encounter Plan of Treatment Upcoming Encounters Date Type Specialty Care Team Description 08/17/2022 Procedure visit Neurology Marina Winter M.D., M.P.H. [address] [phone] (Wo rk) Scheduled Procedures Name Priority Associated Diagnoses Date/Time LIFT THIGH Excessive And Redundant Skin And Subcutaneous Tissue documented as of this encounter Visit Diagnoses Diagnosis Anxiety Generalized Disorder documented in this encounter Additional Health Concerns Assessment Noted Time PHQ-9 Depression Total Score: 12 06/10/2020 1:20 PM CD T documented as of this encounter Care Teams Phlebotomy Program Coordinator Relationship Specialty Start Date End Date Clubb, Annemarie L, M.D. PCP - General 04/19/17 [address] [place] [address] documented as of this encounter
--- OUTSIDE RECORDS SUMMARY | 2022-07-24 15:11 | XMS_ITS | Encounter Summary ---
:1985 Author Organization [facility] Address [address] [place] [address] Care Team Providers Name Role Phone Annemarie Montiel M.D. Primary Care Provider [phone] Reason for Visit Reason Onset Date Comments Depression 01/06/2020 PHQ9 Encounter Details Date Type Department Care Team Description 01/06/2020 Clinical Department of Annemarie Montiel Depression (PHQ9) Communication Family MedicineNadia M.D. [facility], [address] in [facility] [phone] [address] [place], [place] (Work) [phone] Social History Tobacco Use [...] 03/29/2020 relatives? How often do you attend spiritism or taoism Never 07/04/2019 services? 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 [address], [place] [phone] (Wo rk) Scheduled Procedures Name Priority Associated Diagnoses Date/Time LIFT THIGH Excessive And Redundant Skin And Subcutaneous Tissue documented as of this encounter Visit Diagnoses Not on filedocumented in this encounter Additional Health Concerns Assessment Noted Time PHQ-9 Depression Total Score: 19 10/09/2019 11:[address] documented as of this encounter Care Teams Butter Melter Relationship Specialty Start Date End Date Annemarie Montiel M.D. PCP - General 04/19/17 [address], [place] [address] documented as of this encounter
--- OUTSIDE RECORDS SUMMARY | 2022-07-24 15:11 | XMS_ITS | Encounter Summary ---
:1985 Author Organization [facility] Address [address] [place] [address] Care Team Providers Name Role Phone Annemarie Montiel M.D. Primary Care Provider [phone] Reason for Visit Reason Comments Med Refill Encounter Details Date Type Department Care Team Description 07/05/2020 Refill Department of Yenifer Song M.D. Med Refill Medicine, [facility], [address] [place] [address] [address] [place] [address] [phone] Social History Tobacco Use Types Packs/Day Years [...] 03/29/2020 relatives? How often do you attend faith or yazdanism Never 07/04/2019 services? 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 [address] [place], [place] [phone] (Wo rk) Scheduled Procedures Name Priority Associated Diagnoses Date/Time LIFT THIGH Excessive And Redundant Skin And Subcutaneous Tissue documented as of this encounter Visit Diagnoses Diagnosis Migraine Headache documented in this encounter Additional Health Concerns Assessment Noted Time PHQ-9 Depression Total Score: 12 06/10/2020 1:20 PM CD T documented as of this encounter Care Teams Drum Plater Relationship Specialty Start Date End Date Annemarie Montiel M.D. PCP - General 04/19/[address] [address] documented as of this encounter
--- OUTSIDE RECORDS SUMMARY | 2022-07-24 15:11 | XMS_ITS | Encounter Summary ---
:1985 Author Organization [facility] Address [address] [place] [address] Care Team Providers Name Role Phone Annemarie Montiel M.D. Primary Care Provider [phone] Reason for Visit Reason Comments COVID Inquiry Encounter Details Date Type Department Care Team Description 06/04/2020 Clinical Communication Department of Annemarie Montiel Family MedicineNadia M.D. [facility], in [address] [place], [place] [address] [address] [place], [place] [phone] [address] (Work) [phone] Social History Tobacco Use Types Packs/Day Years [...] How often do you attend hinduism or adventism Never 07/04/2019 services? 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 1. Do you have a pending COVID test because you had symptoms or exposure to someone with COVID or you have tested positive for COVID in the last 30 days? no 2. In the past 14 days, do you, anyone in the household, or anyone you have had prolonged exposure have any of the following? a. Fever greater than or equal to 37.8 C (100.0 F)? no b. New symptoms (Specifically: headache, cough, shortness of breath, respiratory distress, sore throat, diarrhea, nausea, vomiting, chills and repeated shaking with chills, myalgia's (muscle aches), loss of smell, or change or loss of taste sensation)? no c. Had close contact with a patient with known or possible COVID-19 in the last 14 days? no Route reply to: Scheduling Contact Number: documented in this encounter Plan of Treatment Upcoming Encounters Date Type Specialty Care Team Description 08/17/2022 Procedure visit Neurology Marina Winter M.D., M.P.H. [address] [place], [place] [phone] (Wo rk) Scheduled Procedures Name Priority Associated Diagnoses Date/Time LIFT THIGH Excessive And Redundant Skin And Subcutaneous Tissue documented as of this encounter Visit Diagnoses Not on filedocumented in this encounter Additional Health Concerns Assessment Noted Time PHQ-9 Depression Total Score: 15 2020 3:09 PM CD T documented as of this encounter Care Teams Deckhand Shrimp Boat Relationship Specialty Start Date End Date Annemarie Montiel M.D. PCP - General 04/19/17 [address] [place] [address] documented as of this encounter
--- OUTSIDE RECORDS SUMMARY | 2022-07-24 15:12 | XMS_ITS | Encounter Summary ---
:1985 Author Organization [facility] Address [address] [place] [id number] Care Team Providers Name Role Phone Annemarie Montiel M.D. Primary Care Provider [phone] Reason for Referral MRI/CAT/PET Scan (Routine) - Closed Specialty Diagnoses / Procedures Referred By Contact Refer red To Contact Radiology Diagnoses [facility] CT Abdomen Pelvis with IV Contrast M.B.B.S. [address] [place] [address] [phone] Referral ID Status Reason Start Date Expiration Date Visits Requ ested Visits Authorized [id number] Closed 12/15/2019 12/14/2020 1 1 PAINTER Reason for Visit MRI/CAT/PET Scan (Routine) - Closed Specialty Diagnoses / Procedures Referred By Contact Refer red To Contact Radiology Diagnoses [facility] CT Abdomen Pelvis with IV Contrast M.B.B.S. [address] [place] [phone] Referral ID Status Reason Start Date Expiration Date Visits Requ ested Visits Authorized [id number] Closed 12/15/2019 12/14/2020 1 1 Encounter Details Date Type Department Care Team Description 12/15/2019 Hospital Encounter Department of Radiology, Donnie Oliveros [facility], [place] [address] [place] [address] [place] [phone] Social History Tobacco Use Types Packs/Day Years [...] 03/29/2020 relatives? How often do you attend rastafari or congregation Never 07/04/2019 services? 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 biotin 5,000 mcg Take 10,000 mcg by 0 tablet,disintegrating mouth daily. calcium Take 1 capsule by 0 carbonate-vitamin D3 mouth daily. (Calcium 600 with Vitamin D3) 600 mg(1,500mg) -400 unit capsule cholecalciferol (VITAMIN Take 2,000 Units by 0 D3) 2,000 Unit tablet mouth daily. cyanocobalamin (VITAMIN Take 2 tablets 60 each 11 10/09/20 19 B12) 500 mcg SL (1,000 mcg total) by tabletIndications: mouth daily. Surgery Bariatric Status Post ferrous sulfate 325 mg Take 325 mg by mouth 0 (65 mg iron) tablet daily. melatonin 5 mg tablet Take 5 mg by mouth 0 at bedtime as needed (sleep). khvpbxrhwagh-Bc-qjdt-min Take 1 tablet by 0 erals (MULTIPLE VITAMIN, mouth daily. WOMENS) tablet valACYclovir [...] times daily for pain ondansetron (ZOFRAN) 4 Take 1 tablet (4 mg 30 tablet 0 12/0612/23/2019 mg tablet total) by mouth every 8 (eight) hours as needed for nausea or vomiting for up to 7 days. oxyCODONE (ROXICODONE) 5 Take 1 tablet (5 mg 11 tablet 0 12/26/2019 mg immediate release total) by mouth tabletIndications: Acute every 4 (four) hours Pain as needed for pain or severe pain or score 7-10 of 10 for up to 10 days Indication: acute pain. sennosides (senna) 8.6 Take 1 tablet (8.6 30 tablet 11 12/1612/15/2020 mg tablet mg total) by mouth daily. busPIRone (BUSPAR) 15 mg Take 1-2 tablets 120 tablet 11 10/0903/30/2020 tabletIndications: (15-30 mg total) by Anxiety Generalized mouth 2 (two) times Disorder a day. cranberry conc-ascorbic Take 1 capsule by 0 12/16/2019 acid 4,200-20 mg capsule mouth daily. minoxidil (Rogaine) 5 % Apply 1 application 60 g 3 03/201912/16/2019 topical foam topically daily. Misc Prescription Misc Prescription 0 07/17/2017 12/16/2019 (Allergy Immunotherapy) Cocunut oil 1000mg tablet daily omeprazole (PriLOSEC) 20 Take 20 mg by mouth. 0 0 05/05/2019 12/16/[address] capsule oxyCODONE (ROXICODONE) 5 Take 1 tablet (5 mg 10 tablet 0 12/16/2019 mg immediate release total) by mouth tabletIndications: Acute every 4 (four) hours Pain as needed for pain or severe pain or score 7-10 of 10 for up to 10 days Indication: acute pain. PARoxetine (PAXIL) 40 mg Take 1.5 tablets (60 45 tablet 11 12/10/2018 06/21/2020 tabletIndications: mg total) by mouth Depression Major daily. Recurrent (HCC), Anxiety Generalized Disorder sodium chloride 1 gram Take 1 tablet (1 g 60 tablet 11 07/0412/16/2019 tablet total) by mouth 2 (two) times a day with meals. documented as of this encounter Plan of Treatment Upcoming Encounters Date Type Specialty Care Team Description 08/17/2022 Procedure visit Neurology Marina iWnter M.D., M.P.H. [address] [place] [phone] (Wo rk) Scheduled Procedures Name Priority Associated Diagnoses Date/Time LIFT THIGH Excessive And Redundant Skin And Subcutaneous Tissue documented as of this encounter Procedures Procedure Name Priority Date/Time Associated Comments Diagnosis CT ABDOMEN PELVIS RAD - Routine 12/15/2019 4:11 Panniculitis Result s for this WITH IV CONTRAST (most inpatients PM HAND PAINTER procedu re are in and all the results outpatients) section. documented in this encounter Results CT Abdomen Pelvis with IV Contrast (12/15/2019 4:11 PM HAND PAINTER) Anatomical Region Laterality Modality Abdomen, Pelvis, Abdominal RST LOS, N/A Comp uted Tomography, Computed Abdominal ARZ LOS, Abdominal FLA LOS Manjeet ography Specimen (Source) Anatomical Collection Method Collection Time Re ceived Time Location / / Volume Laterality 12/16/2019 7:15 AM HAND PAINTER Impressions 12/16/2019 7:18 AM HAND PAINTER Tiny fat-containing umbilical hernia. Abdomen and pelvis otherwise negative. Narrative 12/16/2019 7:18 AM HAND PAINTER EXAM: ??CT ABDOMEN PELVIS WITH IV CONTRAST COMPARISON: ??CT the abdomen pelvis from 07/27/2017. FINDINGS: ??Tiny fat-containing umbilica l hernia. Otherwise, no hernias are seen. Postoperative change from sleeve gastrec flor. Cholecystectomy. Hysterectomy. Small splenules. Trace amount of physiol ogic free fluid in the pelvis. The remainder of the abdomen pelvis are othe rwise unremarkable. Procedure Note Norbert Leal M.D. - 12/16/2019Format ting of this note might be different from the original. EXAM: CT ABDOMEN PELVIS WITH IV CONTRAST COMPARISON: CT the abdomen pelvis from 07/27/2017. FINDINGS: Tiny fat-containing umbilical hernia. Otherwise, no hernias are seen. Postoperative change from sleeve gastrec flor. Cholecystectomy. Hysterectomy. Small splenules. Trace amount of physiol ogic free fluid in the pelvis. The remainder of the abdomen pelvis are othe rwise unremarkable. IMPRESSION: Tiny fat-containing umbilical hernia. Ab domen and pelvis otherwise negative. Clare Murphy IMG CT PROCEDURES documented in this encounter Visit Diagnoses Diagnosis Panniculitis documented in this encounter Administered Medications Inactive Administered Medications - up to 3 most recent administrations Medication Order MAR Action Action Date Dose Rate Site iohexol (OMNIPAQUE) dilution Given 12/15/2019 4:05 PM HAND PAINTER 9,000 mg solution 9,000 mg iodine/1,000 mL water 9,000 mg, oral, Once in imaging, contrast, Starting on Sun12/15/19 at 1522, For 1 dose, Imaging Protocol Orders, Mix iohexol 300 (Omnipaque?? 300) 30 mL with 970 mL water for a total volume of 1,000 mLs. Patient to drink mixture in 40 minutes. iohexol 300 mg iodine/mL solution 1-200 mL Given 12/15/2019 4:06 PM HAND PAINTER 150 mL (OMNIPAQUE) 1-200 mL, intravenous, Once in imaging, contrast, Starting on Sun12/15/19 at 1522, For 1 dose, Imaging Protocol Orders, Dose per Radiant Medication Guidelines sodium chloride (PF) 0.9 % injection 1-1 00 mL Given 12/15/2019 4:07 PM HAND PAINTER 47 mL 1-100 mL, intravenous, Once, On Sun12/15/19 at 1530, For 1 dose, Imaging Protocol Orders documented in this encounter Additional Health Concerns Assessment Noted Time PHQ-9 Depression Total Score: 19 10/09/2019 11:[address] documented as of this encounter Care Teams Brokerage Clerk Relationship Specialty Start Date End Date Annemarie Montiel M.D. PCP - General 04/19/[address] [place] [phone] documented as of this encounter
--- OUTSIDE RECORDS SUMMARY | 2022-07-24 15:12 | XMS_ITS | Encounter Summary ---
:1985 Author Organization [facility] Address [address] [place] [address] Care Team Providers Name Role Phone Annemarie Montiel M.D. Primary Care Provider [phone] Reason for Referral Outpatient (Routine) - Closed Specialty Diagnoses / Procedures Referred By Contact Refer red To Contact Plastic Surgery [facility] [address] [place] [phone] Referral ID Status Reason Start Date Expiration Date Visits Requ ested Visits Authorized [id number] Closed 12/12/2019 12/11/2020 1 1 CRITIC Encounter Details Date Type Department Care Team Description 12/12/2019 Orders Only Division of Plastic Surgery Ailin Mir, in [facility] jeevan Banks, R.N. [address] [place] [phone] Social History Tobacco Use Types Packs/Day Years [...] How often do you attend zoroastrianism or shinto Never 07/04/2019 services? 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 [address] [place], [place] [phone] (Wo rk) Scheduled Procedures Name Priority Associated Diagnoses Date/Time LIFT THIGH Excessive And Redundant Skin And Subcutaneous Tissue Scheduled Referrals Name Type Priority Associated Diagnoses Order S chedule Plastic Surgery Outpatient Referral Routine Expec heaven: Post Op (clinic) 12/30/2019 (Approximate), Expires: 12/12/2022 documented as of this encounter Visit Diagnoses Not on filedocumented in this encounter Additional Health Concerns Assessment Noted Time PHQ-9 Depression Total Score: 19 10/09/2019 11:[address] documented as of this encounter Care Teams Sales Clerk Supervisor Relationship Specialty Start Date End Date Annemarie Montiel M.D. PCP - General 04/19/17 [address] [place] [phone] documented as of this encounter
--- OUTSIDE RECORDS SUMMARY | 2022-07-24 15:12 | XMS_ITS | Encounter Summary ---
:1985 Author Organization [facility] Address [address] [place] [address] Care Team Providers Name Role Phone Annemarie Montiel M.D. Primary Care Provider [phone] Reason for Visit Reason Onset Date Comments Depression 07/28/2019 PHQ9 Follow up - 2nd Attempt Encounter Details Date Type Department Care Team Description 07/28/2019 Clinical Department of Annemarie Montiel Depression (PHQ9 Communication Family MedicineNadia M.D. Follow up - 2nd [facility], [address]) in [facility] [phone] [phone] [place], [place] (Work) [phone] Social History Tobacco Use [...] 03/29/2020 relatives? How often do you attend adventist or zoroastrianism Never 07/04/2019 services? 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 documented in this encounter Plan of Treatment Upcoming Encounters Date Type Specialty Care Team Description 08/17/2022 Procedure visit Neurology Marina Winter M.D., M.P.H. [address] [place], [place] [phone] (Wo rk) Scheduled Procedures Name Priority Associated Diagnoses Date/Time LIFT THIGH Excessive And Redundant Skin And Subcutaneous Tissue documented as of this encounter Visit Diagnoses Not on filedocumented in this encounter Additional Health Concerns Assessment Noted Time PHQ-9 Depression Total Score: 11 03/25/2019 1:49 PM CD T documented as of this encounter Care Teams Manager Registration Relationship Specialty Start Date End Date Annemarie Montiel M.D. PCP - General 04/19/17 [address] [place] [phone] documented as of this encounter
--- OUTSIDE RECORDS SUMMARY | 2022-07-24 15:12 | XMS_ITS | Encounter Summary ---
:1985 Author Organization [facility] Address [address] [place] [address] Care Team Providers Name Role Phone Annemarie Montiel M.D. Primary Care Provider [phone] Encounter Details Date Type Department Care Team Description 07/19/2019 Orders Only [facility] - Annemarie Ramirez M.D. [address] [facility], [place] [address] [place] [address] [facility] [place] [address] [phone] Social History Tobacco Use Types Packs/Day Years [...] How often do you attend spiritism or congregation Never 07/04/2019 services? 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 [address] [place], [place] [phone] (Wo rk) Scheduled Procedures Name Priority Associated Diagnoses Date/Time LIFT THIGH Excessive And Redundant Skin And Subcutaneous Tissue documented as of this encounter Visit Diagnoses Not on filedocumented in this encounter Additional Health Concerns Assessment Noted Time PHQ-9 Depression Total Score: 11 03/25/2019 1:49 PM CD T documented as of this encounter Care Teams Hardware Installation Coordinator Relationship Specialty Start Date End Date Annemarie Montiel M.D. PCP - General 04/19/172199 [place] [phone] documented as of this encounter
--- OUTSIDE RECORDS SUMMARY | 2022-07-24 15:12 | XMS_ITS | Encounter Summary ---
:1985 Author Organization [facility] Address [address] [place] [address] Care Team Providers Name Role Phone Annemarie Montiel M.D. Primary Care Provider [phone] Reason for Referral Outpatient (Routine) - Closed Specialty Diagnoses / Procedures Referred By Contact Refer red To Contact Family Medicine Diagnoses Depression Major Recurrent (HCC) Anxiety Generalized Disorder Surgery Bariatric Status Post [facility] Fern[facility] M.[facility] [address] [place] [phone] Referral ID Status Reason Start Date Expiration Date Visits Requ ested Visits Authorized [id number] Closed 07/04/2019 07/03/2020 1 1 Reason for Visit Reason Comments Paperwork Appointment Request (Routine) - Closed Specialty Diagnoses / Procedures Referred By Contact Refer red To Contact Family Medicine Referral ID Status Reason Start Date Expiration Date Visits Requ ested Visits Authorized [id number] Closed 07/01/2019 06/30/2020 1 Encounter Details Date Type Department Care Team Description 07/04/2019 Office Visit Department of Annemarie Song Depression Major Recurrent (HCC) (Primary Dx); Medicine, Porfirio Jaramillo Anxiety Generalized Disorder; Clinic, in [place], [address] Surgery Bariatric Status Post [place], [place] [address] [phone] [place], [place] [phone] (Wo rk) [address] [phone] Social History Tobacco Use Types Packs/Day Years [...] 03/29/2020 relatives? How often do you attend evangelical or yazdanism Never 07/04/2019 services? 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 - 07/04/2019 4:15 PM CDT [facility] for cognitive therapy OFFICE LOCATION: [address] [place], [place] [phone] Sunday through Sunday For appointment: Please leave your name and phone number. If you know the therapist you prefer, leave that name as well. You will receive a call back to schedule an appointment. Available Therapists: Sophia Winter, PARAMJIT Flynn, PARAMJIT Epstein, CARDBOARD INSERTER Alexandra Early, [facility] Tisha Ochoa, [facility] Azalea Reyes, CRANBERRY FARM SUPERVISOR, HORSE TREKKING GUIDE Heidi Meyer MA, Clinical Counseling documented in this encounter Progress Notes Annemarie Montiel M.D. - 07/04/2019 4:15 PM CDT SUBJECTIVE CHIEF COMPLAINT / REASON FOR VISIT Work note. HISTORY OF PRESENT ILLNESS Maria Alejandra Gomez is a 34 y.o. female who presents to the clinic today for a work note. 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 She is comfortable with 15 hours a week on her work note. She is wondering if she can increase herPaxil to 60 mg. Also, she wants to start a migraine medication. Maria Alejandra notes that the Supervisor Public Health Nursing is unsure what to help her with at this point. She is maintaining her weight currently and has a diet consisting of beef jerky and cheese. Answers for HPI/ROS submitted by the patient on 07/04/2019 Fatigue: Yes No eye issues: Yes No ENT issues: Yes No heart issues: Yes No respiratory issues: Yes Abdominal (belly) pain or cramping: Yes Constipation: Yes No muscle/bone issues: Yes No skin issues: Yes Headache: Yes Light-headedness: Yes Excessive daytime sleepiness/tiredness: Yes Little interest or pleasure in doing things: Yes Feeling down, depressed, or hopeless: Yes Feeling nervous, anxious or on edge: Yes Not being able to stop or control worrying: Yes Bruises/bleeds easily: Yes No urinary/reproductive issues: Yes CURRENT MEDICATIONS Current Outpatient Medications Medication Sig Dispense Refill ??? biotin 5,000 mcg tablet,disintegrating Take 10,000 mcg by mouth daily. ??? busPIRone (BUSPAR) 5 mg tablet TAKE ONE TABLET BY MOUTH TWO TIMES A DAY FOR 7 DAYS THEN 2 TABS BY MOUTH TWO TIMES A DAY THEREAFTER 0 ??? cholecalciferol (VITAMIN D3) 2,000 Unit tablet Take 2,000 Units by mouth daily. ??? cranberry conc-ascorbic acid 4,200-20 mg capsule Take 1 capsule by mouth daily. ??? cyanocobalamin (VITAMIN B12) 500 mcg SL tablet Take 2 tablets (1,000 mcg total) by mouth daily. (Patient taking differently: Take 500 mcg by mouth daily. ) 60 each 11 ??? ferrous sulfate 325 mg (65 mg iron) tablet Take 325 mg by mouth daily. ??? gidqzrwzmavt-Nk-tmwv-minerals (MULTIPLE VITAMIN, WOMENS) tablet Take 1 tablet by mouth daily. ??? PARoxetine (PAXIL) 40 mg tablet Take 1.5 tablets (60 mg total) by mouth daily. 45 tablet 11 ??? valACYclovir (VALTREX) 1000 mg tablet TAKE ONE TABLET BY MOUTH ONCE DAILY FOR 5 DAYS (Patient taking differently: TAKE ONE TABLET BY MOUTH ONCE DAILY FOR 5 DAYS PRN) 15 tablet 1 ??? Misc Prescription (Allergy Immunotherapy) Misc Prescription Cocunut oil 1000mg tablet daily ??? sodium chloride 1 gram tablet Take 1 tablet (1 g total) by mouth 2 (two) times a day with meals.60 tablet 11 No current facility-administered medications for this visit. ALLERGIES/CONTRAINDICATIONS Allergies Allergen Reactions ??? Adhesive Tape-Silicones Rash ??? House Dust Mite Rash MEDICAL HISTORY Past Medical History: Diagnosis Date ??? Anxiety Generalized Disorder ??? Concussion Loss Of Consciousness Unspecified Duration Initial ??? Depression Major ??? Gallbladder Disorder ??? Headache ??? Hypertension NOS ??? Migraine Headache ??? Morbid Obesity Body Mass Index Greater Than Or Equal To 40 Adult (HCC) status post gastric bypass SURGICAL HISTORY Past Surgical History: Procedure Laterality Date ??? BARIATRIC SURGERY ??? BILATERAL TUBAL LIGATION 12/01/2016 ??? SECTION 07/02/2005 ??? SECTION 02/19/2011 ??? SECTION 05/09/2013 ??? SECTION 12/01/2016 ??? CHOLECYSTECTOMY 11/29/2005 ??? LAPAROTOMY EXPLORATORY 2009 peritoneal adhesion divided ??? TONSILLECTOMY AND ADENOIDECTOMY 1995 ??? TOTAL ABDOMINAL HYSTERECTOMY 07/25/2017 with panniculectomy OBJECTIVE VITAL SIGNS Vitals: 07/04/19 1559 BP: 100/62 Patient Position: Sitting Pulse: 64 Resp: 20 Weight: 75.5 kg Body mass index is 27.53 kg/m??. PHYSICAL EXAMINATION General: Alert, oriented female, well developed and well nourished. Non distressed. Mental: Appropriate mood and affect. Normal judgement and insight. Neuro: Cranial nerves II-XII grossly intact. No focal deficit. ASSESSMENT / PLAN #1 Depression Major Recurrent (HCC) #2 Anxiety Generalized Disorder (HCC) #3 Nausea with refeeding syndrome type symptoms PLAN:Medical opinion form is completed for [facility]. Recommended that she establish with therapy and did provide information for Experiencing [facility]. - PARoxetine (PAXIL) 40 mg tablet; Take 1.5 tablets (60 mg total) by mouth daily. Dispense: 45 tablet; Refill: 11 -Prescribed sodium chloride 1 g tablets twice daily with meals to help with lightheadedness and electrolyte balance. -Follow-up in three months. -Recommend that the patient try to eat more bananas to increase her potassium levels. -continue to follow up with the bariatric clinic for ongoing assistance in improving her nutrition. This document serves as a record of services personally performed by Annemarie Montiel MD. It was created on their behalf by Kaity huertas trained durable medical equipment technician. The creation of this record is based on the scribe's personal observations and the provider's statements to them. This document has been checked and approved by the attending provider. documented in this encounter Plan of Treatment Upcoming Encounters Date Type Specialty Care Team Description 08/17/2022 Procedure visit Neurology Marina Winter M.D., M.P.H. [address] [phone] (Wo rk) Scheduled Procedures Name Priority Associated Diagnoses Date/Time LIFT THIGH Excessive And Redundant Skin And Subcutaneous Tissue Scheduled Referrals Name Type Priority Associated Diagnoses Order S [facility] Family Medicine Outpatient Referral Routine Depression Major E xpected: office visit Recurrent (HCC) 10/04/2019 (clinic) Anxiety Generalized (Approxi mate), Disorder Expires: Surgery Bariatric 07/04/2022 Status Post documented as of this encounter Visit Diagnoses Diagnosis Depression Major Recurrent (HCC) - Prima ry Anxiety Generalized Disorder Surgery Bariatric Status Post documented in this encounter Additional Health Concerns Assessment Noted Time PHQ-9 Depression Total Score: 11 03/25/2019 1:49 PM CD T documented as of this encounter Care Teams Osteologist Relationship Specialty Start Date End Date Annemarie Montiel M.D. PCP - General 04/19/[address] [phone] documented as of this encounter
--- OUTSIDE RECORDS SUMMARY | 2022-07-24 15:12 | XMS_ITS | Encounter Summary ---
:1985 Author Organization [facility] Address [address] [place] [address] Care Team Providers Name Role Phone Annemarie Montiel M.D. Primary Care Provider [phone] Reason for Visit Reason Onset Date Comments Appointment 02/26/2019 Encounter Details Date Type Department Care Team Description 02/26/2019 Clinical Communication Department of Maisha Song, Appointment Medicine, Porfirio Jaramillo [facility], in [facility] [address] [place], [place] [id number] [place], [place] [phone] (Wo rk) [address] [phone] Social History Tobacco Use Types Packs/Day Years [...] 03/29/2020 relatives? How often do you attend buddhist or nondenominational Never 07/04/2019 services? Do you belong to any clubs or organizations such as No 07/04/2019 buddhist groups, unions, fraternal or athletic groups, or [...] or getting things needed for daily living? 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 - 02/26/2019 6:20 PM CDT SUBJECTIVE CHIEF COMPLAINT / REASON FOR CALL Appointment INFORMATION DISCUSSED Spoke with pt. Per chart it does look like Dr. Montiel and Shari have sent the pt a portal message aboutthis issue. Nurse did go over the portal message with pt from Dr. Montiel and Shari. Pt states that she does not want to do testing now. Pt advise to call about her portal from the number she got earlier from the PSR. Pt agree and will when she has more time. PLAN Disposition/Recommendation: lab test Information: patient/caller able to repeat back in their own words Caller agreeable to plan of care: yes The following references were used: provider Dr. Montiel Telephone Encounter - Janie Mosher - 02/26/2019 2:08 PM CDT Reason for Communication: Dr Montiel has an order in the queue for this patient to see Shari- the pharmacist- after she has an One Ome test done, but when I called the patient to schedule, she didn't know anything about that lab test and seeing the pharmacist after. Does Dr Montiel want her to do that test and if so, we need lab orders for it. Thank you!!! Current Can Nursing/Provider leave a detailed message: yes Did the patient refuse triage through Nurse line? (for symptom based concerns): Action Needed: Need to know if a lab test should be done and if she needs to see the pharmacist after Name of Medication (if relevant): documented in this encounter Plan of Treatment Upcoming Encounters Date Type Specialty Care Team Description 08/17/2022 Procedure visit Neurology Marina Winter M.D., M.P.H. [address] [phone] (Wo rk) Scheduled Procedures Name Priority Associated Diagnoses Date/Time LIFT THIGH Excessive And Redundant Skin And Subcutaneous Tissue documented as of this encounter Visit Diagnoses Not on filedocumented in this encounter Additional Health Concerns Assessment Noted Time PHQ-9 Depression Total Score: 13 01/16/2019 3:01 PM CD T documented as of this encounter Care Teams Ultrasonic Welding Machine Operator Relationship Specialty Start Date End Date Annemarie Montiel M.D. PCP - General 04/19/[address] [phone] documented as of this encounter
--- OUTSIDE RECORDS SUMMARY | 2022-07-24 15:12 | XMS_ITS | Encounter Summary ---
:[address] [facility] Address [address] [place] [address] Care Team Providers Name Role Phone Annemarie Montiel M.D. Primary Care Provider [phone] Encounter Details Date Type Department Care Team Description 01/16/2019 Hospital Encounter Department of Annemarie Montiel [facility] [place] [place] [address] [place] [address] [phone] Social History Tobacco Use Types Packs/Day Years [...] How often do you attend religion or rastafarian Never 07/04/2019 services? 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 cyanocobalamin (VITAMIN Take 2 tablets (1,000 60 each 11 0 01/16/2019 10/09/2019 B12) 500 mcg SL mcg total) by mouth tabletIndications: daily. Surgery Bariatric Status Post mirtazapine (REMERON Take 1 tablet (15 mg 30 tablet 11 01/1602/24/2019 ADELA-TAB) 15 mg total) by mouth at disintegrating bedtime. tabletIndications: Anxiety Generalized Disorder, Depression Major Recurrent (HCC) Misc Prescription Misc Prescription 0 07/17/2017 12/16/2019 (Allergy Immunotherapy) Cocunut oil 1000mg tablet daily documented as of this encounter Plan of Treatment Upcoming Encounters Date Type Specialty Care Team Description 08/17/2022 Procedure visit Neurology Marina Winter M.D., M.P.H. [address] [phone] (Wo rk) Scheduled Procedures Name Priority Associated Diagnoses Date/Time LIFT THIGH Excessive And Redundant Skin And Subcutaneous Tissue documented as of this encounter Procedures Procedure Name Priority Date/Time Associated Diagnosis Comme nts POTASSIUM, S/P Routine 01/16/2019 2:54 PM Hypokalemia Results for this CDT procedure are i n the results section . documented in this encounter Results Potassium (01/16/2019 2:54 PM CDT) P athologist Signature Potassium, S 4.5 3.6 - 5.2 01/16/2019 [facility] mmol/L 4:00 PM CDT [facility] Specimen Anatomical Collection Method Collection Time Receive d Time (Source) Location / / Volume Laterality Blood (Blood, 01/16/2019 2:54 PM 01/17/20 19 2:58 Venous) CDT PM CDT Annemarie Montiel M.D. LAB BLOOD ADD-ON Performing Organization Address City/State/ZIP Code Phon e Number [facility] [address] [place] [address] LAB documented in this encounter Visit Diagnoses Diagnosis Hypokalemia documented in this encounter Additional Health Concerns Assessment Noted Time PHQ-9 Depression Total Score: 13 01/16/2019 3:01 PM CD T documented as of this encounter Care Teams College Scouting Coordinator Relationship Specialty Start Date End Date Annemarie Montiel M.D. PCP - General 04/19/[address] [place] [phone] documented as of this encounter
--- OUTSIDE RECORDS SUMMARY | 2022-07-24 15:12 | XMS_ITS | Encounter Summary ---
:1985 Author Organization [facility] Address [address] [place] [address] Care Team Providers Name Role Phone Annemarie Montiel M.D. Primary Care Provider [phone] Encounter Details Date Type Department Care Team Description 04/02/2019 Ancillary Procedure Department of Plastic and Reconstructive [...] 03/29/2020 relatives? How often do you attend congregational or adventism Never 07/04/2019 services? 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 [address] [place] [phone] (Wo rk) Scheduled Procedures Name Priority Associated Diagnoses Date/Time LIFT THIGH Excessive And Redundant Skin And Subcutaneous Tissue documented as of this encounter Procedures Procedure Name Priority Date/Time Associated Diagnosis Comme nts PLASTIC AND RECON Routine 04/02/2019 11:39 AM Res ults for this SURGERY IMAGE EXAM CDT procedure are in the results section. documented in this encounter Results Abdomen-Plastic And Recon Surgery Image Exam (04/02/2019 11:39 AM CDT) Specimen (Source) Anatomical Collection Method Collection Time Re ceived Time Location / / Volume Laterality 04/02/2019 11:37 AM CDT Narrative [facility] - 04/02/2019 11:39 AM CDT This order has been created and [...] documented as of this encounter Care Teams Negative Spotter Relationship Specialty Start Date End Date Annemarie Montiel M.D. PCP - General 04/19/17 [address] [place] [phone] documented as of this encounter
--- OUTSIDE RECORDS SUMMARY | 2022-07-24 15:12 | XMS_ITS | Encounter Summary ---
:1985 Author Organization [facility] Address [address] [place] [address] Care Team Providers Name Role Phone Annemarie Montiel M.D. Primary Care Provider [phone] Reason for Visit Reason Comments Consult discuss tummy tuck and arms Outpatient (Routine) - Closed Specialty Diagnoses / Procedures Referred By Contact Refer red To Contact Plastic Surgery Diagnoses Skin Redundancy Annemarie Montiel M.D. [facility] [address] [place] [address] Referral ID Status Reason Start Date Expiration Date Visits Requ ested Visits Authorized [id number] Closed 03/25/2019 03/24/2020 1 1 Encounter Details Date Type Department Care Team Description 04/02/2019 Comprehensive Visit Department of Harris Chavez Abdominal (Primary Dx); Plastic Surgery in [place] Skin Redundancy [place], [place] [address], [address] [phone] Social History Tobacco Use Types Packs/Day Years [...] 03/29/2020 relatives? How often do you attend bahai or jehovah's witness Never 07/04/2019 services? 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 - 04/02/2019 11:30 AM CDT Images from the original note were not included. SUBJECTIVE CHIEF COMPLAINT / REASON FOR VISIT Maria Alejandra Gomez is a 34 y.o. female who presents for evaluation of Consult (discuss tummy tuck and arms ). HISTORY OF PRESENT ILLNESS 34-year-old white female presents for evaluation of excess abdominal skin and excess skin and weightof the arms. She underwent gastric sleeve procedure in July 2018. She has lost 120 lb over the subsequent 8 months. She has previously undergone total abdominal hysterectomy and abdominal panniculectomy in 2017. She is now concerned with excess upper abdominal skin and irritation in malodor. She also is concerned regarding excess weight and drooping of the arms. She is unable to wear short sleeves. She denies current hernia. Past Medical History: Diagnosis Date ??? Anxiety Generalized Disorder ??? Concussion Loss Of Consciousness Unspecified Duration Initial ??? Depression Major ??? Gallbladder Disorder ??? Headache ??? Hypertension NOS ??? Migraine Headache ??? Morbid Obesity Body Mass Index Greater Than Or Equal To 40 Adult (HCC) status post gastric bypass Past Surgical History: Procedure Laterality Date ??? BARIATRIC SURGERY ??? BILATERAL TUBAL LIGATION 12/01/2016 ??? SECTION 07/02/2005 ??? SECTION 02/19/2011 ??? SECTION 05/09/2013 ??? SECTION 12/01/2016 ??? CHOLECYSTECTOMY 11/29/2005 ??? LAPAROTOMY EXPLORATORY 2009 peritoneal adhesion divided ??? TONSILLECTOMY AND ADENOIDECTOMY 1995 ??? TOTAL ABDOMINAL HYSTERECTOMY 07/25/2017 with panniculectomy Allergies Allergen Reactions ??? Adhesive Tape-Silicones Rash ??? House Dust Mite Rash Smoking status: Never Smoker Smokeless tobacco: Never Used REVIEW OF SYSTEMS All other systems reviewed and are negative. OBJECTIVE PHYSICAL EXAM Constitutional She appears well-developed and well-nourished. Psychiatric She has a normal mood and affect. Her behavior is normal. Judgment and thought content normal. Cardiovascular Normal rate, regular rhythm, normal heart sounds and intact distal pulses. Pulmonary/Chest Effort normal and breath sounds normal. Skin Skin is warm and dry. Eyes Pupils are equal, round, and reactive to light. System normal. General - Right: Right eye extraocular movements are normal. Left: Left eye extraocular movements are normal. Extremities Arms: Arms: Abdomen and Hips Measurements: Chest 38 1/2 in 97 cm Waist 35 in 89 cm Umbilicus 42-1/2 inches 108 cm Pubis 40-1/2 inches 103 cm Hips 41-3/4 inches 106 cm Right arm circumference mid 14 in 36 cm Left arm circumference mid 15 in 39 cm ASSESSMENT / PLAN Skin excess superior abdomen Lipodystrophy bilateral arms Recommend: 1. Abdominoplasty 2. Bilateral brachioplasty Answers for HPI/ROS submitted by the patient on 10/16/2018 Fatigue: Yes Visual problems: Yes Persistent hoarse voice: Yes Sinus congestion: Yes No heart issues: Yes Coughing up mucus (phlegm): Yes Wheezing: Yes No GI issues: Yes No muscle/bone issues: Yes No skin issues: Yes Headache: Yes Light-headedness: Yes Numbness or shooting pain in hands, arms, legs or feet: Yes Excessive daytime sleepiness/tiredness: Yes Little interest or pleasure in doing things: Yes Feeling down, depressed, or hopeless: Yes Feeling nervous, anxious or on edge: Yes Not being able to stop or control worrying: Yes No blood/lymph issues: Yes No urinary/reproductive issues: Yes documented in this encounter Plan of Treatment Upcoming Encounters Date Type Specialty Care Team Description 08/17/2022 Procedure visit Neurology Marina Winter M.D., M.P.H. [address], [place] [phone] (Wo rk) Scheduled Procedures Name Priority Associated Diagnoses Date/Time LIFT THIGH Excessive And Redundant Skin And Subcutaneous Tissue documented as of this encounter Visit Diagnoses Diagnosis Pannus Abdominal - Primary Skin Redundancy documented in this encounter Additional Health Concerns Assessment Noted Time PHQ-9 Depression Total Score: 11 03/25/2019 1:49 PM CD T documented as of this encounter Care Teams Rosin Barrel Filler Relationship Specialty Start Date End Date Annemarie Montiel M.D. PCP - General 04/19/[address] [phone] documented as of this encounter
--- OUTSIDE RECORDS SUMMARY | 2022-07-24 15:12 | XMS_ITS | Encounter Summary ---
:1985 Author Organization [facility] Address [address] [place] [address] Care Team Providers Name Role Phone Annemarie Montiel M.D. Primary Care Provider [phone] Encounter Details Date Type Department Care Team Description 11/07/2019 Ancillary Procedure Department of Plastic and Reconstructive [...] How often do you attend mandaeism or faith Never 07/04/2019 services? Do you belong to [...] at Date Recorded Female 10/16/2018 10:53 AM WHARF HAND documented as of this encounter Plan of Treatment Upcoming Encounters Date Type Specialty Care Team Description 08/17/2022 Procedure visit Neurology Marina Winter M.D., M.P.H. [address] [phone] (Wo rk) Scheduled Procedures Name Priority Associated Diagnoses Date/Time LIFT THIGH Excessive And Redundant Skin And Subcutaneous Tissue documented as of this encounter Procedures Procedure Name Priority Date/Time Associated Diagnosis Comme nts PLASTIC AND RECON Routine 11/07/2019 11:36 AM Res ults for this SURGERY IMAGE EXAM WHARF HAND procedure are in the results section. documented in this encounter Results Entire Body Abdominoplasty-Plastic And Recon Surgery Image Exam (11/07/2019 11:36 AM WHARF HAND) Specimen (Source) Anatomical Collection Method Collection Time Re ceived Time Location / / Volume Laterality 11/07/2019 12:00 PM WHARF HAND Narrative [facility] - 11/07/2019 11:36 AM WHARF HAND This order has been created and auto-finalized [...] as of this encounter Care Teams Risk Management Consultant Relationship Specialty Start Date End Date Annemarie Montiel M.D. PCP - General 04/19/[address] [place] [phone] documented as of this encounter
--- OUTSIDE RECORDS SUMMARY | 2022-07-24 15:12 | XMS_ITS | Encounter Summary ---
:1985 Author Organization [facility] Address [address] [place] [address] Care Team Providers Name Role Phone Annemarie Montiel M.D. Primary Care Provider [phone] Reason for Referral Outpatient (Routine) - Closed Specialty Diagnoses / Procedures Referred By Contact Refer red To Contact Plastic Surgery Diagnoses Surgery Bariatric Status Post Panniculitis Annemarie Montiel M.D. [facility] [address] [place] [address] Referral ID Status Reason Start Date Expiration Date Visits Requ ested Visits Authorized [id number] Closed 10/09/2019 10/08/2020 1 1 NG VAMPER Reason for Visit Reason Comments Anxiety Depression Follow-up bariatric surgery Outpatient (Routine) - Closed Specialty Diagnoses / Procedures Referred By Contact Refer red To Contact Family Medicine Diagnoses Depression Major Recurrent (HCC) Anxiety Generalized Disorder Surgery Bariatric Status Post Annemarie Montiel [facility] [address] [place] [address] Referral ID Status Reason Start Date Expiration Date Visits Requ ested Visits Authorized [id number] Closed 07/04/2019 07/03/2020 1 1 Encounter Details Date Type Department Care Team Description 10/09/2019 Office Visit Department of Annemarie Song Depression Major Recurrent (HCC) (Primary Dx); MedicinePorfirio M.D. Anxiety Generalized Disorder; Clinic, in [facility] [address] Surgery Bariatric Status Post; [place], [place] Panniculitis [address] [address] SHANNON CARRERO [phone] (Wo rk) [address] [phone] Social History Tobacco Use Types Packs/Day Years [...] 03/29/2020 relatives? How often do you attend holiness or confucianism Never 07/04/2019 services? Do you belong to any clubs or organizations such as No 07/04/2019 holiness groups, unions, fraternal or athletic groups, or [...] at Date Recorded Female 10/16/2018 10:53 AM LINING VAMPER documented as of this encounter Last Filed Vital Signs Vital Sign Reading Time Taken Comments Blood Pressure 106/72 10/09/2019 11:08 AM LINING VAMPER Pulse 72 10/09/2019 11:08 AM LINING VAMPER Temperature 36.5 ??C (97.7 ??F) 10/09/2019 11:08 AM LINING VAMPER Respiratory Rate 16 10/09/2019 11:08 AM LINING VAMPER Oxygen Saturation - - Inhaled Oxygen Concentration - - Weight 79.5 kg (175 lb 4.3 oz) 10/09/2019 11:08 AM LINING VAMPER Height - - Body Mass Index 28.99 04/02/2019 10:58 AM CDT documented in this encounter Progress Notes Annemarie Montiel M.D. - 10/09/2019 11:00 AM CST SUBJECTIVE CHIEF COMPLAINT / REASON FOR VISIT Depression and anxiety, post bariatric surgery HISTORY OF PRESENT ILLNESS Maria Alejandra Gomez is a 34 y.o. female who presents to the clinic today for depression and anxiety,post bariatric surgery. At her last visit on 07/04/2019 I recommended she start therapy at [facility]. Continue on Paxil. I also had started her on sodium chloride 1 g tablets to help with lightheadedness and electrolyte balance. Encouraged her to eat more bananas to help increase potassium. Since then that patient notes that she has been doing better. She is currently living in [place] and has been consistently working. Patient notes that she is doing well on her Paxil but would like something different for her anxiety. She states that she struggles more in the morning due to getting her children ready. She also reports she has been feeling tired and wants to sleep all the time. For her stomach, the patient states that she has been eating more meats and cheeses while limiting her fruits and vegetables. Patient notes that she has been getting some potassium into her diet. She has currently been weighing herself at around 160s to 170s. Additionally, she notes that with losing weight, her excess abdominal tissue tends to get itchy. She also complains of a smell and irritation around the area. She states that this has been upsetting her and would like to know what her options are to fix it. The patient states that she is currently upset at the fact that she has been gaining weight and slowed hair growth. Her hair loss has been a problem since her surgery. Patient notes that she did try a product called Hair Jazz that had no effect for her. There are no further concerns at this time. ROS Answers for HPI/ROS submitted by the patient on 10/09/2019 Fatigue: Yes Weight gain of more than 10 pounds: Yes No eye issues: Yes Sinus congestion: Yes No heart issues: Yes No respiratory issues: Yes Heartburn: Yes Nausea: Yes Constipation: Yes Back pain/stiffness: Yes No skin issues: Yes Headache: Yes Light-headedness: Yes Weakness in arms and/or legs: Yes Change in sexual drive (decreased libido): [...] daily. ??? busPIRone (BUSPAR) 5 mg tablet Take 2 tablets (10 mg total) by mouth 2 (two) times a day. 360 tablet 3 ??? cholecalciferol (VITAMIN D3) 2,000 Unit tablet [...] Take 325 mg by mouth daily. ??? Misc Prescription (Allergy Immunotherapy) Misc Prescription Cocunut oil 1000mg tablet daily ??? gvpefszhmzet-Sv-wybn-minerals (MULTIPLE VITAMIN, WOMENS) tablet Take 1 tablet by mouth daily. ??? PARoxetine (PAXIL) 40 mg tablet Take 1.5 tablets (60 mg total) by mouth daily. 45 tablet 11 ??? sodium chloride 1 gram tablet Take 1 tablet (1 g total) by mouth 2 (two) times a day with meals.60 tablet 11 ??? valACYclovir (VALTREX) 1000 mg tablet TAKE ONE TABLET BY MOUTH ONCE DAILY FOR 5 DAYS (Patient taking differently: TAKE ONE TABLET BY MOUTH ONCE DAILY FOR 5 DAYS PRN) 15 tablet 1 No current facility-administered medications for [...] 07/25/2017 with panniculectomy OBJECTIVE VITAL SIGNS Vitals: 10/09/19 1108 BP: 106/72 Pulse: 72 Temp: 36.5 ??C Resp: 16 Weight: 79.5 kg TempSrc: Temporal Body mass index is 28.99 kg/m??. PHYSICAL EXAMINATION General: Alert, oriented female, well developed and well nourished. Non distressed. Skin: Intact. She has moderate thinning of hair on her scalp. No patches of alopecia. No rash or lesion. No ecchymosis. Heart: Regular rate and rhythm. Normal S1 and S2. No murmur or bruit. Lungs: Clear. No wheezes or crackles. Normal inspiratory to expiratory ratio. Abdomen: Soft, nontender. No mass. She has moderate amount of pannus around the umbilical area, in addition she has medium amount of pannus of the right lower abdomen and the skin in this area appears erythematous. Extremities: Normal range of motion of all extremities. No edema. Mental: Appropriate mood and affect. Normal judgement and insight. Neuro: Cranial nerves II-XII grossly intact. No focal deficit. ASSESSMENT / PLAN #1 Depression Major Recurrent (HCC) PLAN: - Family Medicine office visit (clinic) - PARoxetine (PAXIL) 40 mg tablet; Take 1.5 tablets (60 mg total) by mouth daily. Dispense: 45 tablet; Refill: 11 #2 Anxiety Generalized Disorder PLAN: increase Buspar as directed below. - busPIRone (BUSPAR) 15 mg tablet; Take 1-2 tablets (15-30 mg total) by mouth 2 (two) times a day. Dispense: 120 tablet; Refill: 11 - PARoxetine (PAXIL) 40 mg tablet; Take 1.5 tablets (60 mg total) by mouth daily. Dispense: 45 tablet; Refill: 11 #3 Surgery Bariatric Status Post PLAN: Patient is due for fu labs. She brought to my attentions she is not taking vitamin B12. She will need to restart this. - Family Medicine office visit (clinic) - cyanocobalamin (VITAMIN B12) 500 mcg SL tablet; Take 2 tablets (1,000 mcg total) by mouth daily. Dispense: 60 each; Refill: 11 - BMP (Basic Metabolic Panel); Future - Vitamin B12 Assay; Future - Ferritin; Future - 25-Hydroxyvitamin D2 and D3; Future - CBC without Differential; Future #4 Panniculitis; recurrent odor PLAN: - Plastic Surgery - General consult (clinic); Future, requested Ric[facility] Site for a second opinion to determine if she is eligible for a medically indicated skin reduction. #5 Healthcare Maintenance PLAN: Influenza vaccination will be administered today. #6 Generalized Hair Loss; this continues to be related to nutritional deficiencies and weight loss. PLAN: Start Womens Rogaine 5% foam for hair growth. Apply daily, rubbing into scalp. May take up to 4 months to see improvement of hair growth. This document serves as a record of services personally performed by Annemarie Montiel MD. It was created on their behalf by Laurie Mcleod a trained medical management specialist. The creation of this record is based on the scribe's personal observations and the provider's statements to them. This document has been latricia cked and approved by the attending provider. NG VAMPER documented in this encounter Plan of Treatment Upcoming Encounters Date Type Specialty Care Team Description 08/17/2022 Procedure visit Neurology Marina Winter M.D., M.P.H. [address] [phone] (Wo rk) Scheduled Procedures Name Priority Associated Diagnoses Date/Time LIFT THIGH Excessive And Redundant Skin And Subcutaneous Tissue Scheduled Referrals Name Type Priority Associated Diagnoses Order S chedule Plastic Surgery - Outpatient Referral Routine Surgery Bariatri c Expected: General consult Status Post 10/09/2019 (clinic) Panniculitis (Approximate), Expires: 10/09/2022 documented as of this encounter Visit Diagnoses Diagnosis Depression Major Recurrent (HCC) - Prima ry Anxiety Generalized Disorder Surgery Bariatric Status Post Panniculitis documented in this encounter Additional Health Concerns Assessment Noted Time PHQ-9 Depression Total Score: 19 10/09/2019 11:[address] documented as of this encounter Care Teams Head Cook Relationship Specialty Start Date End Date Annemarie Montiel M.D. PCP - General 04/19/[address] [place] [address] documented as of this encounter
--- OUTSIDE RECORDS SUMMARY | 2022-07-24 15:12 | XMS_ITS | Encounter Summary ---
:1985 Author Organization [facility] Address [address] [place] [address] Care Team Providers Name Role Phone Annemarie Montiel M.D. Primary Care Provider [phone] Encounter Details Date Type Department Care Team Description 01/17/2019 Clinical Communication Department of Maisha Song, Medicine, Porfirio Jaramillo [facility], in [facility] [address] [place], [place] [address] [place] [address] [place], [place] [phone] (Wo rk) [address] [phone] Social History Tobacco Use Types Packs/Day Years [...] 03/29/2020 relatives? How often do you attend christianity or orthodoxy Never 07/04/2019 services? 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 [address] [place], [place] [phone] (Wo rk) Scheduled Procedures Name Priority Associated Diagnoses Date/Time LIFT THIGH Excessive And Redundant Skin And Subcutaneous Tissue documented as of this encounter Visit Diagnoses Not on filedocumented in this encounter Additional Health Concerns Assessment Noted Time PHQ-9 Depression Total Score: 13 01/16/2019 3:01 PM CD T documented as of this encounter Care Teams Marketing Communications Associate Relationship Specialty Start Date End Date Annemarie Montiel M.D. PCP - General 04/19/[address] [place] [address] documented as of this encounter
--- OUTSIDE RECORDS SUMMARY | 2022-07-24 15:12 | XMS_ITS | Encounter Summary ---
:1985 Author Organization [facility] Address [address] [place] [address] Care Team Providers Name Role Phone Annemarie Montiel M.D. Primary Care Provider [phone] Reason for Visit Reason Comments Headache Encounter Details Date Type Department Care Team Description 03/05/2019 - Emergency [facility] Headache (Primary Dx) 03/06/2019 [address] [place] [address] Social History Tobacco Use Types Packs/Day Years [...] 03/29/2020 relatives? How often do you attend quaker or yarsanism Never 07/04/2019 services? 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 Surgery Bariatric Status Post Misc Prescription Misc Prescription 0 07/17/2017 12/16/2019 (Allergy Immunotherapy) Cocunut oil 1000mg tablet daily PARoxetine (PAXIL) 10 Take 1 tablet (10 mg 30 tablet 1 02/0403/25/2019 mg tablet total) by mouth every morning. documented as of this encounter Plan of Treatment Upcoming Encounters Date Type Specialty Care Team Description 08/17/2022 Procedure visit Neurology Marina Winter M.D., M.P.H. [address] [phone] (Wo rk) Scheduled Procedures Name Priority Associated Diagnoses Date/Time LIFT THIGH Excessive And Redundant Skin And Subcutaneous Tissue documented as of this encounter Visit Diagnoses Diagnosis Headache Unspecified - Primary documented in this encounter Additional Health Concerns Assessment Noted Time PHQ-9 Depression Total Score: 13 01/16/2019 3:01 PM CD T documented as of this encounter Care Teams Aerospace Manager Relationship Specialty Start Date End Date Annemarie Montiel M.D. PCP - General 04/19/[address] [phone] documented as of this encounter
--- OUTSIDE RECORDS SUMMARY | 2022-07-24 15:12 | XMS_ITS | Encounter Summary ---
:1985 Author Organization [facility] Address [address] [place] [address] Care Team Providers Name Role Phone Annemarie Montiel M.D. Primary Care Provider [phone] Encounter Details Date Type Department Care Team Description 11/26/2019 Clinical Communication Division of Plastic Liam white, Surgery in [place], Surendra Sparks[facility] [place] [address] [facility] [address] [place] [address] [phone] Social History Tobacco Use Types Packs/Day Years [...] 03/29/2020 relatives? How often do you attend amish or church Never 07/04/2019 services? 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 - 11/26/2019 2:45 PM PIPE WASHER SUBJECTIVE CHIEF COMPLAINT / REASON FOR CALL No chief complaint on file. Information Discussed The patient is calling in regarding scheduling surgery. She states she has received approval from her insurance company and is ready to schedule soon as possible. I've offered her December 16 for thesurgical date and she will come back to clinic to see us on December 15. PLAN Disposition/Recommendation: self-care is appropriate at this time, patient encouraged to call back with questions Information/Education: patient/caller able to teach back Caller agreeable to plan of care: yes The following references were used: nursing clinical judgement WASHER Telephone Encounter - Keisha Mir M.S.N., R.N. - 11/26/2019 2:23 PM PIPE WASHER msg left WASHER Telephone Encounter - Sanam aDy - 11/26/2019 8:55 AM CST This pt called and would like to schedule her surgery. Please call her back at . Thank you. WASHER documented in this encounter Plan of Treatment Upcoming Encounters Date Type Specialty Care Team Description 08/17/2022 Procedure visit Neurology Marina Winter M.D., M.P.H. [address] [place] [phone] (Wo rk) Scheduled Procedures Name Priority Associated Diagnoses Date/Time LIFT THIGH Excessive And Redundant Skin And Subcutaneous Tissue documented as of this encounter Visit Diagnoses Not on filedocumented in this encounter Additional Health Concerns Assessment Noted Time PHQ-9 Depression Total Score: 19 10/09/2019 11:[address] documented as of this encounter Care Teams Bank And Savings Securities Trader Relationship Specialty Start Date End Date Annemaire Montiel M.D. PCP - General 04/19/17 [address] [facility] [place] [address] documented as of this encounter
--- OUTSIDE RECORDS SUMMARY | 2022-07-24 15:12 | XMS_ITS | Encounter Summary ---
:1985 Author Organization [facility] Address [address] [place] [address] Care Team Providers Name Role Phone Annemarie Montiel M.D. Primary Care Provider [phone] Reason for Visit Reason Onset Date Comments Medical Form 10/16/2019 Encounter Details Date Type Department Care Team Description 10/16/2019 Clinical Communication Department of Maisha Song Medical Form MedicinePorfirio M.D. [facility], in [facility] [address] [place], [place] [address] [place] [address] [place], [place] [phone] [address] (Work) [phone] Social History Tobacco Use Types Packs/Day Years [...] 03/29/2020 relatives? How often do you attend advent or quaker Never 07/04/2019 services? 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 - 10/28/2019 7:56 AM FORESTRY INSTRUCTOR Form completed and will route back to HIM today. Pt has been working, so I did increase workability to 20 hrs per week, she may do more if she feels able. Please have the patient sign the form(page 1) before we fax it or she can also pick it up if she prefers. Thank you. STRY INSTRUCTOR Telephone Encounter - Annemarie Montiel M.D. - 10/24/2019 6:33 AM FORESTRY INSTRUCTOR Noted. I will watch for the form to return from HIM STRY INSTRUCTOR Telephone Encounter - Oliva Wright C.MSandra - 10/21/2019 11:03 AM FORESTRY INSTRUCTOR Patient has been notified that we received the medical form and that it has been sent to HIM to address. STRY INSTRUCTOR Telephone Encounter - Oliva Wright C.MSandra - 10/21/2019 11:01 AM FORESTRY INSTRUCTOR Medical form was sent to HIM to address. Will let the patient know when completed. STRY INSTRUCTOR Telephone Encounter - Nicki Newman - 10/21/2019 10:55 AM CST Patient is calling in and is wondering about the status of the medical form she is needing. Please call patient back. STRY INSTRUCTOR Telephone Encounter - Nuris Cloud LRodrigoP.NRodrigo - 10/20/2019 11:34 AM FORESTRY INSTRUCTOR Medical opinion form in in Dr. Montiel's box to do her part. Patient needs to finish the rest before faxing. STRY INSTRUCTOR Telephone Encounter - Kaci Tinoco - 10/16/2019 8:40 AM CST Reason for Communication: Patient is calling in requesting an updated medical opinion form from Dr. Montiel. Current Can Nursing/Provider leave a detailed message: Action Needed: Please review and advise. Name of Medication (if relevant): STRY INSTRUCTOR documented in this encounter Plan of Treatment Upcoming Encounters Date Type Specialty Care Team Description 08/17/2022 Procedure visit Neurology Marina Winter M.D., M.P.H. [address] [place], [place] [phone] (Wo rk) Scheduled Procedures Name Priority Associated Diagnoses Date/Time LIFT THIGH Excessive And Redundant Skin And Subcutaneous Tissue documented as of this encounter Visit Diagnoses Not on filedocumented in this encounter Additional Health Concerns Assessment Noted Time PHQ-9 Depression Total Score: 19 10/09/2019 11:[address] documented as of this encounter Care Teams Concrete Form Setter And Finisher Relationship Specialty Start Date End Date Annemarie Montiel M.D. PCP - General 04/19/17 [address] [place] [address] documented as of this encounter
--- OUTSIDE RECORDS SUMMARY | 2022-07-24 15:12 | XMS_ITS | Encounter Summary ---
:1985 Author Organization [facility] Address [address] [place] [address] Care Team Providers Name Role Phone Annemarie Montiel M.D. Primary Care Provider [phone] Reason for Referral Outpatient (Routine) - Closed Specialty Diagnoses / Procedures Referred By Contact Refer red To Contact Diagnoses Depression Major Recurrent (HCC) Anxiety Generalized Disorder Annemarie Montiel M.D. [address] [phone] Referral ID Status Reason Start Date Expiration Date Visits Requ ested Visits Authorized [id number] Closed Other 03/25/2019 03/24/2020 1 1 Outpatient (Routine) - Closed Specialty Diagnoses / Procedures Referred By Contact Refer red To Contact Plastic Surgery Diagnoses Skin Redundancy Annemarie Montiel M.D. [facility] [address] [phone] Referral ID Status Reason Start Date Expiration Date Visits Requ ested Visits Authorized [id number] Closed 03/25/2019 03/24/2020 1 1 Reason for Visit Reason Comments Follow-up 6 Weeks for medication revie w Appointment Request (Routine) - Closed Specialty Diagnoses / Procedures Referred By Contact Refer red To Contact Family Medicine Referral ID Status Reason Start Date Expiration Date Visits Requ ested Visits Authorized [id number] Closed 01/17/2019 01/17/2020 1 Encounter Details Date Type Department Care Team Description 03/25/2019 Office Visit Department of Family ClubAnnemarie lainez, Depression Major Recurrent (HCC) (Primary Dx); Porfirio Valdes M.D. Anxiety Generalized Disorder; Clinic, in [place], [address] Skin Redundancy; [place], [place] Surgery Bariatric Status Pos t [address] [address] [place] [phone] (Wo rk) [address] [phone] Social History Tobacco Use Types Packs/Day Years [...] 03/29/2020 relatives? How often do you attend orthodox or gnosticist Never 07/04/2019 services? 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 - 03/25/2019 2:[address] Harris Chavez to discuss excess skin For cognitive therapy Dr [facility]: Doctor in [place], [place] Address: [address], [place] [address] documented in this encounter Progress Notes Annemarie Montiel M.D. - 03/25/2019 2:00 PM CDT SUBJECTIVE CHIEF COMPLAINT / REASON FOR VISIT Follow-up of depression and anxiety. HISTORY OF PRESENT ILLNESS Maria Alejandra Gomez is a 34 y.o. female who presents to the clinic today for follow-up of depressionand anxiety. I last saw the patient on 01/16/19. At that time, we started her on mirtazapine 15 mg daily. The patient later contacted the clinic on 02/01/19 due to experiencing lethargy on the mirtazapine. We discussed having her undergo pharmacogenetic testing, but it was too expensive. She was ultimately switched to Paxil 10 mg every evening. She has not experienced any adverse side effects on thismedication. Her depression and anxiety have continued to affect her everyday life. In particular, she has noticed that her fuse is very short. She has no patience with her kids which is not normal for her. Maria Alejandra will be starting at [employer] tomorrow. She will only been working limited hours since she is still struggling with her multiple health concerns and other stressors. She is requesting an updated letter in support of limited work hours. The patient underwent bariatric surgery while she was living in [place] in August 2018. She has lost a significant amount of weight since the surgery. She does not eat much of anything and will generally just take a couple of bites. For example, all that she has had to eat today was two string cheeses. Additionally, she does not eat a lot of fruits or vegetables due to the sugar and carbohydrates that they have. Maria Alejandra used to stress eat, but now she cannot due to her stomach. She has been upset regarding hair loss and skin issues since having her surgery. She has excess skin and has also noticed bumps and rashes. As a result, feels the need to keep her arms and legs covered. CURRENT MEDICATIONS Current Outpatient Prescriptions Medication Sig Dispense Refill ??? biotin 5,000 mcg tablet,disintegrating Take 10,000 mcg by mouth daily. ??? calcium phosphate-vitamin D3 250-400 mg-unit tablet,chewable Chew 2 tablets daily. ??? cholecalciferol (VITAMIN D3) 2,000 Unit [...] Take 325 mg by mouth daily. ??? lcqofegqfjfi-Dp-sizl-minerals (MULTIPLE VITAMIN, WOMENS) tablet Take 1 tablet by mouth daily. ??? PARoxetine (PAXIL) 10 mg tablet Take 1 tablet (10 mg total) by mouth every morning. 30 tablet 1 ??? valACYclovir (VALTREX) 1000 mg tablet TAKE ONE TABLET BY MOUTH ONCE DAILY FOR 5 DAYS (Patient taking differently: TAKE ONE TABLET BY MOUTH ONCE DAILY FOR 5 DAYS PRN) 15 tablet 1 ??? Misc Prescription (Allergy Immunotherapy) Misc Prescription Cocunut oil 1000mg tablet daily No current facility-administered medications for this visit. [...] 07/25/2017 with panniculectomy OBJECTIVE VITAL SIGNS Vitals: 03/25/19 1340 BP: 116/62 Patient Position: Sitting Pulse: 72 Temp: 36.4 ??C Resp: 14 Weight: 83.4 kg TempSrc: Temporal Body mass index is 29.73 kg/m??. PHYSICAL EXAMINATION General: Alert, oriented female, overweight but otherwise well nourished. Nondistressed. Skin: She has raised papules on the abdomen that are located under her pannus of skin. There is redundant skin of the arms, thighs, and abdomen. ENT: TMs are clear, normal light reflex and no effusion. Oropharynx shows mucous membranes are moistand pink. Tonsils are not hypertrophic. Heart: Regular rate and rhythm. Normal S1 and S2. No murmur or bruit. Lungs: Clear. No wheezes or crackles. Normal inspiratory to expiratory ratio. Abdomen: Soft, nontender. No mass. Extremities: Normal range of motion of all extremities. No edema. Mental: Appropriate mood and affect. Normal judgement and insight. Neuro: Cranial nerves II-XII grossly intact. No focal deficit. ASSESSMENT / PLAN #1 Depression Major Recurrent (HCC) #2 Anxiety Generalized Disorder PLAN: Increase Paxil to 20 mg daily for two weeks, then increase to 40 mg daily. Use cognitive techniques such as exercise to help with stress management. Strongly consider reestablishing therapy, especially as relates to her bariatric surgery status. Follow-up in two months. Updated paperwork regarding her need to limit to 10 hours of work per week. #3 Redundant skin PLAN: Referral to Plastic Surgery for further evaluation and discussed treatment options. We discussed that I am not certain what insurance would cover. Evidence of skin irritation noted on abdomen. Ptalso advised to start exercising regularly for firming/toning and also to improve her mental health. #4 Bariatric surgery status PLAN: Encouraged her to establish with a foreclosure home inspector familiar with bariatric surgery. This document serves as a record of services personally performed by Annemarie Montiel MD. It was created on their behalf by Iman huertas trained medical technologist chemistry. The creation of this record is based on the scribe's personal observations and the provider's statements to them. This document has been checked and approved by the attending provider. documented in this encounter Plan of Treatment Upcoming Encounters Date Type Specialty Care Team Description 08/17/2022 Procedure visit Neurology Marina Winter M.D., M.P.H. [address] [place], [place] [phone] (Wo rk) Scheduled Procedures Name Priority Associated Diagnoses Date/Time LIFT THIGH Excessive And Redundant Skin And Subcutaneous Tissue Scheduled Referrals Name Type Priority Associated Diagnoses Order S chedule Plastic Surgery - Outpatient Referral Routine Skin Redundancy Expected: General consult 03/25/2019 (clinic) (Approximate), Expires: 03/25/2022 documented as of this encounter Visit Diagnoses Diagnosis Depression Major Recurrent (HCC) - Prima ry Anxiety Generalized Disorder Skin Redundancy Surgery Bariatric Status Post documented in this encounter Additional Health Concerns Assessment Noted Time PHQ-9 Depression Total Score: 11 03/25/2019 1:49 PM CD T documented as of this encounter Care Teams Family Services Worker Relationship Specialty Start Date End Date Annemarie Montiel M.D. PCP - General 04/19/17 [address] [place] [address] documented as of this encounter
--- OUTSIDE RECORDS SUMMARY | 2022-07-24 15:12 | XMS_ITS | Encounter Summary ---
:1985 Author Organization [facility] Address [address] [place] [address] Care Team Providers Name Role Phone Annemarie Montiel M.D. Primary Care Provider [phone] Encounter Details Date Type Department Care Team Description 02/21/2019 Clinical Communication Department of Maisha Song, Medicine, Porfirio Jaramillo [facility], in [facility] [address] [place], [place] [address] [place], [place] [phone] (Wo rk) [address] [phone] Social History Tobacco Use Types Packs/Day Years [...] How often do you attend uatsdin or taoist Never 07/04/2019 services? 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 [address] [place], [place] [phone] (Wo rk) Scheduled Procedures Name Priority Associated Diagnoses Date/Time LIFT THIGH Excessive And Redundant Skin And Subcutaneous Tissue documented as of this encounter Visit Diagnoses Not on filedocumented in this encounter Additional Health Concerns Assessment Noted Time PHQ-9 Depression Total Score: 13 01/16/2019 3:01 PM CD T documented as of this encounter Care Teams Mat Packer Relationship Specialty Start Date End Date Annemarie Montiel M.D. PCP - General 04/19/[address] [place] [address] documented as of this encounter
--- OUTSIDE RECORDS SUMMARY | 2022-07-24 15:12 | XMS_ITS | Encounter Summary ---
:1985 Author Organization [facility] Address [address] [place] [address] Care Team Providers Name Role Phone Annemarie Montiel M.D. Primary Care Provider [phone] Encounter Details Date Type Department Care Team Description 07/01/2019 Clinical Communication Department of Maisha Song, Medicine, Porfirio Jaramillo [facility], in [facility] [address] [place], [place] [address] [place] [address] [place], [place] [phone] (Wo rk) [address] [phone] Social History Tobacco Use Types Packs/Day Years [...] How often do you attend faith or mandaeism Never 07/04/2019 services? 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 - 07/01/2019 2:35 PM CDT Can you please schedule the patient? I did not see anything in Dr. Montiel's schedule for this week. If she needs to be seen this week, then she is going to need to be willing to see another provider. Thank you. Telephone Encounter - Gladis Lott - 07/01/2019 11:46 AM CDT Reason for Communication: Patient called in to reschedule an appt with Dr. Montiel from 06/13 that had to be cancelled due to doctor being gone. Dr. Montiel's next available is not until 10/01 and patient's medical leave for work expires at the end of Jun. She would like to see Dr. Montiel as soon as possible. Current Can Nursing/Provider leave a detailed message: Did the patient refuse triage through Nurse line? (for symptom based concerns): Action Needed: Please call patient back. Name of Medication (if relevant): documented in this encounter Plan of Treatment Upcoming Encounters Date Type Specialty Care Team Description 08/17/2022 Procedure visit Neurology Marina Winter M.D., M.P.H. [address] [place] [phone] (Wo ) Scheduled Procedures Name Priority Associated Diagnoses Date/Time LIFT THIGH Excessive And Redundant Skin And Subcutaneous Tissue documented as of this encounter Visit Diagnoses Not on filedocumented in this encounter Additional Health Concerns Assessment Noted Time PHQ-9 Depression Total Score: 11 03/25/2019 1:49 PM CD T documented as of this encounter Care Teams Retail Planning Manager Relationship Specialty Start Date End Date Annemarie Montiel M.D. PCP - General 04/19/[address] [place] [address] documented as of this encounter
--- OUTSIDE RECORDS SUMMARY | 2022-07-24 15:12 | XMS_ITS | Encounter Summary ---
:1985 Author Organization [facility] Address [address] [place] [address] Care Team Providers Name Role Phone Annemarie Montiel M.D. Primary Care Provider [phone] Encounter Details Date Type Department Care [...] 03/29/2020 relatives? How often do you attend rastafarian or yarsanism Never 07/04/2019 services? 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 [address] [place] [phone] (Wo rk) Scheduled Procedures Name Priority Associated Diagnoses Date/Time LIFT THIGH Excessive And Redundant Skin And Subcutaneous Tissue documented as of this encounter Procedures Procedure Name Priority Date/Time Associated Diagnosis Comme nts PLASTIC AND RECON Routine 04/02/2019 11:43 AM Res ults for this SURGERY IMAGE EXAM CDT procedure are in the results section. documented in this encounter Results Arm-Plastic And Recon Surgery Image Exam (04/02/2019 11:43 AM CDT) Specimen (Source) Anatomical Collection Method Collection Time Re ceived Time Location / / Volume Laterality 04/02/2019 11:37 AM CDT Narrative [facility] - 04/02/2019 11:43 AM CDT This order has been created [...] documented as of this encounter Care Teams Mirror Painter Relationship Specialty Start Date End Date Annemarie Montiel M.D. PCP - General 04/19/17 [address], [place] [address] documented as of this encounter
--- OUTSIDE RECORDS SUMMARY | 2022-07-24 15:12 | XMS_ITS | Encounter Summary ---
:1985 Author Organization [facility] Address [address] [place] [address] Care Team Providers Name Role Phone Annemarie Montiel M.D. Primary Care Provider Encounter Details Date Type Department Care Team Description 11/20/2019 Orders Only Division of Plastic Surgery Jeffry Chew in [facility] jeevan Jaramillo [address] [place] [address] [place], [place] [phone] (Wo rk) Social History Tobacco Use Types [...] 03/29/2020 relatives? How often do you attend mosque or roman catholic Never 07/04/2019 services? 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 [address] [place], [place] [phone] (Wo rk) Scheduled Procedures Name Priority Associated Diagnoses Date/Time LIFT THIGH Excessive And Redundant Skin And Subcutaneous Tissue documented as of this encounter Visit Diagnoses Not on filedocumented in this encounter Additional Health Concerns Assessment Noted Time PHQ-9 Depression Total Score: 19 10/09/2019 11:[address] documented as of this encounter Care Teams Bone Crusher Relationship Specialty Start Date End Date Annemarie Montiel M.D. PCP - General 04/19/[address] [phone] documented as of this encounter
--- OUTSIDE RECORDS SUMMARY | 2022-07-24 15:12 | XMS_ITS | Encounter Summary ---
:1985 Author Organization [facility] Address [address] [place] [address] Care Team Providers Name Role Phone Annemarie Montiel M.D. Primary Care Provider [phone] Reason for Visit Reason Comments Med Refill Encounter Details Date Type Department Care Team Description 01/17/2019 Refill Department of Yenifer Song M.D. Med Refill Medicine, [facility], [address] [place] [address] [address] [place] [address] [facility] [phone] Social History Tobacco Use Types Packs/Day Years [...] How often do you attend mosque or cheondoism Never 07/04/2019 services? 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 - 01/22/2019 10:15 AM CDT SUBJECTIVE CHIEF COMPLAINT / REASON FOR CALL Med Refill INFORMATION DISCUSSED Spoke with patient and informed her of the recommendation from Dr. Montiel. Patient stated she will switch to a half a tab for 7 days and see if that helps. PLAN Disposition/Recommendation: self-care appropriate at this time Take half a tab for 7 days then move to a full tab Information: patient/caller able to repeat back in their own words Caller agreeable to plan of care: yes The following references were used: provider Dr. Annemarie Montiel MD Telephone Encounter - Annemarie Montiel M.D. - 01/21/2019 7:49 PM CDT She has to give herself some time to get used to the Remeron. Take half tab nightly for 1 week if too drowsy and then go back to the full 1 tab Telephone Encounter - Nuris Cloud L.P.N. - 01/21/2019 10:22 AM CDT SUBJECTIVE CHIEF COMPLAINT / REASON FOR CALL Med Refill INFORMATION DISCUSSED Spoke with patient and she confirmed that she bought the B12 over the counter due to insurance not covering it and picked up the mirtazapine. She is wondering if Dr. Montiel would be willing to switch toa different medication or had any recommendations for the mirtazapine. She took this medication lastnight and is very lethargic today. PLAN Disposition/Recommendation: awaiting provider recommendations Information: patient/caller able to repeat back in their own words Caller agreeable to plan of care: yes The following references were used: provider Dr. Annemarie Montiel MD Telephone Encounter - Annemarie Montiel M.D. - 01/20/2019 10:23 PM CDT Pt really does need the Sublingual B12 and Mirtazapine ODT due to bariatric surgery. See if [facility] can order them and if not, change to [facility] or [facility] Telephone Encounter - Lesvia Carlin R.MRodrigoARodrigo - 01/17/2019 3:13 PM CDT Please advise Telephone Encounter - Chhaya Mcgovern - 01/17/2019 7:11 AM CDT Images from the original note were not included. Nurse Review: Pharmacy Communication Provider: Annemarie Montiel M.D. Medication: cyanocobalamin Strength: 500 mcg disintegrating tab sublingual Frequency: Take 2 tabs PO daily Pharmacy: [facility] Comment: Nurse Review: Pharmacy Communication Provider: Annemarie Montiel M.D. Medication: mirtazapine Strength: 15 mg disintegrating tab Frequency: Take 1 tab PO at bedtime Pharmacy: [facility] Comment: documented in this encounter Plan of Treatment Upcoming Encounters Date Type Specialty Care Team Description 08/17/2022 Procedure visit Neurology Marina Winter M.D., M.P.H. [address] [place] [phone] (Wo rk) Scheduled Procedures Name Priority Associated Diagnoses Date/Time LIFT THIGH Excessive And Redundant Skin And Subcutaneous Tissue documented as of this encounter Visit Diagnoses Not on filedocumented in this encounter Additional Health Concerns Assessment Noted Time PHQ-9 Depression Total Score: 13 01/16/2019 3:01 PM CD T documented as of this encounter Care Teams Multiskill Operator Relationship Specialty Start Date End Date Annemarie Montiel M.D. PCP - General 04/19/[address] [phone] documented as of this encounter
--- OUTSIDE RECORDS SUMMARY | 2022-07-24 15:12 | XMS_ITS | Encounter Summary ---
:1985 Author Organization [facility] Address [address] [place] [address] Care Team Providers Name Role Phone Annemarie Montiel M.D. Primary Care Provider [phone] Reason for Visit Auth/Cert Specialty Diagnoses / Procedures Referred By Contact Refer red To Contact Diagnoses Panniculitis Bariatric surgery status Panniculitis [M79.3] Procedures IL EXCISN EXCESS SKIN/TISS ABD PANNICULECTOMY Referral ID Status Reason Start Date Expiration Date Visits Requ ested Visits Authorized [id number] 1 1 Encounter Details Date Type Department Care Team Description 12/16/2019 Surgery RST ROMB MAIN OR Panch[place], PANNICULECTOMY, Possible [address] [facility] [place] [place] [address] [address] [place] [address] [place] [phone] Social History Tobacco Use Types Packs/Day Years [...] How often do you attend muslim or orthodox Never 07/04/2019 services? 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 documented as of this encounter Last Filed Vital Signs Vital Sign Reading Time Taken Comments Blood Pressure 117/66 12/16/2019 2:30 PM ONSITE CASE MANAGER Pulse 92 12/16/2019 2:30 PM ONSITE CASE MANAGER Temperature 36.5 ??C (97.7 ??F) 12/16/2019 2:30 PM ONSITE CASE MANAGER Respiratory Rate 21 12/16/2019 2:30 PM ONSITE CASE MANAGER Oxygen Saturation 100% 12/16/2019 2:30 PM ONSITE CASE MANAGER Inhaled Oxygen Concentration - - Weight 74.5 kg (164 lb 3.9 oz) 12/16/2019 8:35 AM ONSITE CASE MANAGER Height 163.5 cm (5' 4.37) 12/16/2019 8:35 AM ONSITE CASE MANAGER Body Mass Index 27.87 12/16/2019 8:35 AM ONSITE CASE MANAGER documented in this encounter Discharge Summaries Lidia Irby Lexy, ÁNGEL, C.N.P. - 12/17/2019 8:46 AM CST DISCHARGE SUMMARY BRIEF OVERVIEW Discharge Provider: Clare Deleon M.B.B.SRodrigo Primary Care Providers: Annemarie Montiel M.D. (General) [address] [address] Primary Care Provider Primary Care Provider Admission [...] control your pain you may transition to ycid-ptp-flfkomq Tylenol for pain relief. Do not take [...] otherwise. Please feel free to call the senior microsoft consultant surgeon's office for details if you do not have these. Please check your portal or call the scheduling office for information regarding your appointment. CONTACT INFORMATION ?? - If you have questions about your appointment schedule, please call [phone]. - During evening or weekend hours, you may contact a member of the Plastic Surgery team by calling the [facility] wash rack operator at [phone] and ask to speak with the Plastic Surgery resident financial consultant for emergencies. If you have questions about your appointment schedule and you are a hand patient, please call [phone] Sunday through Sunday, 8:00 - 4:30 PM, otherwise call [phone]. For any questions or concerns regarding your care or post-operative instructions, please call , Sunday through Sunday, 8:00 - 4:30 PM. If you experience an urgent issue related to your surgery outside of business hours, please contact the [facility] wash rack operator at and ask to speak with the on-call plastic surgery resident. DRAIN MANAGEMENT ?? You are being sent home with Huan Pal (BIANCA) drains in place. ??These drains are special [...] 2:30 PM Leyla River P.A.-C., M.S. JERSON KELLER Paul Spec TEST RESULTS PENDING AT DISCHARGE DETAILS [...] were provided to the patient and caregiver(s). TE CASE MANAGER documented in this encounter Discharge Instructions AttachmentsThe following attachments cannot be sent through Care Everywhere. Ondansetron (By mouth, Into the mouth) (Ivorian)Laxative, Stimulant Combination (By mouth) (Ivorian)Oxycodone, Rapid Release (By mouth) (Ivorian)documented in this encounter Medications at Time of [...] mouth 0 at bedtime as needed (sleep). sgexpeskugzk-Ol-oabw-screen examiner Take 1 tablet by 0 als [...] Disposition: DC 12/17 Follow up: 12/30 [place] [id number] TE CASE MANAGER documented in this encounter Nursing Notes Makenna Squires R.N. - 12/17/2019 9:47 AM CST [place] [facility] Medications picked up at outpatient pharmacy. IVs removed. All discharge education completed and all questions answered. Vital signs stable. BP 101/58 (BP Location: Left arm;Upper, Patient Position: Sitting) Pulse 78 Temp 37 ??C (Oral) Resp 16 Ht 163.5 cm Wt 74.5 kg LMP 06/08/2017 SpO2 98% No BMI 27.87 kg/m?? Electronically signed by: Makenna Squires R.N. 12/17/19 10:06 AM ONSITE CASE MANAGER TE CASE MANAGER Makenna Squires R.N. - 12/17/2019 9:46 AM CST Shift Goals: Clinical Goals for the Shift: Prepare for DC Identify possible barriers to meeting goals/advancing plan of care: None End of Shift Summary: VSS. Ambulating SBA/independently. Voiding spontaneously. Pt safe and free of falls on shift. Planning to [place] [facility] [place]. Electronically signed by: Makenna Squires R.N. 12/17/19 9:47 AM ONSITE CASE MANAGER TE CASE MANAGER Carter Betts R.N. - 12/17/2019 6:45 AM CST Shift Goals: Clinical Goals for the Shift: Pain Control Identify possible barriers to meeting goals/advancing plan of care: not alerting staff of pain End of Shift Summary: Pt. Was able to ambulate at the beginning of the shift with standby assistancebefore going to bed. Pt. Was vitally stable overnight and pain was easily controlled. TE CASE MANAGER documented in this encounter OR Notes Op Note - Jose Rafael Chew M.D. - 12/16/2019 11:30 AM CST FULL OP NOTE Procedure(s): PANNICULECTOMY, Possible Lily de lis. Surgeon(s) and Role: * Clare Deleon M.B.B.SRodrigo - Primary * Jose Rafael Chew M.D. - Heating And Ventilating Worker * Sulma Lindsay M.B.BShan, M.S. - Other First Aid Nurse Anesthesia Type General Pre-operative Diagnosis Panniculitis Post-operative [...] horizontal-only incision versus horizontal and vertical component lpapx-bz-lsy incision. We started with the lower incision, [...] interrupted 4-0 Monocryl. We then placed two 15-Spanish BIANCA drains coming out laterally on her lateral thighs region via trocar and these were secured using3-0 nylon sutures. Prior to final closure we noticed, as noted on the previous CT scan, a tiny fat hernia superior to the umbilicus. This was fixed using interrupted lodhsk-sw-acrcu 2-0 PDS. Two sutures were placed, and [...] Tissue Panniculus SURGICAL PATHOLOGY, [facility] Clare Deleon, Sharif.B.B.S. 12/16/2019 1155 Drains Closed/Suction Drain 1 Right;Anterior;Lateral Thigh Bulb 15 Fr. (Active) 12/16/19 1257 Thigh Placed by External Staff?: Placed by: Dr Louis Tube Number: 1 Orientation: Right;Anterior;Lateral Drain Tube Type: Bulb Size (Fr): 15 Fr. Size (mm): Size (In): Drain [place] Size (mL): 100 mL Number of Sutures Placed: Removal Reason: Closed/Suction Drain 1 Left;Anterior;Lateral Leg Bulb 15 Fr. (Active) 12/16/19 1301 Leg Placed by External Staff?: Placed by: Dr Deleon Tube Number: 1 Orientation: Left;Anterior;Lateral Drain Tube Type: Bulb Size (Fr): 15 Fr. Size (mm): Size (In): Drain [place] Size (mL): 100 mL Number of Sutures [...] Loss None Implants None Mo Ella Chew TE CASE MANAGER documented in this encounter Miscellaneous Notes Hospital [...] the patient was discharged from the hospital. TE CASE MANAGER documented in this encounter Plan of Treatment Upcoming Encounters Date Type Specialty Care Team Description 08/17/2022 Procedure visit Neurology Marina Winter M.D., M.P.H. [address] [place], [place] [phone] (Wo rk) Scheduled Procedures Name Priority Associated Diagnoses Date/Time LIFT THIGH Excessive And Redundant Skin And Subcutaneous Tissue documented as of this encounter Procedures Procedure Name Priority Date/Time Associated Diagnosis Comme nts CBC WITHOUT Routine 12/17/2019 4:51 Results for this DIFFERENTIAL, B AM ONSITE CASE MANAGER procedure ar e in the results section. BASIC METABOLIC PANEL, Routine 12/17/2019 4:51 Re sults for this S/P AM ONSITE CASE MANAGER procedure are i n the results section. ADULT OXYGEN THERAPY Routine 12/16/2019 2:23 PM ONSITE CASE MANAGER SURGICAL PATHOLOGY, Routine 12/16/2019 11:55 Panniculitis Resu lts for this [facility] AM ONSITE CASE MANAGER procedure are i n the results section. PANNICULECTOMY 12/16/2019 10:24 Panniculitis AM ONSITE CASE MANAGER documented in this encounter Results (ABNORMAL) Basic Metabolic Panel (12/17/2019 4:51 AM ONSITE CASE MANAGER) P athologist Signature Potassium, S 3.9 3.6 - 5.2 12/17/2019 DTL mmol/L 6:00 AM ONSITE CASE MANAGER Sodium, S 140 135 - 145 12/17/2019 DTL mmol/L 6:00 AM ONSITE CASE MANAGER Chloride, S 102 98 - 107 12/17/2019 DTL mmol/L 6:00 AM ONSITE CASE MANAGER Bicarbonate, S 24 22 - 29 12/17/2019 DTL mmol/L 6:00 AM ONSITE CASE MANAGER Anion Gap 14 7 - 15 12/17/2019 DTL 6:00 AM ONSITE CASE MANAGER BUN (Blood Urea 9 6 - 21 12/17/2019 DTL Nitrogen), S mg/dL 6:00 AM ONSITE CASE MANAGER Creatinine 0.63 0.59 - 12/17/2019 DTL 1.04 mg/dL 6:00 AM ONSITE CASE MANAGER eGFR-Non >90 >=60 12/17/2019 DTL Black/ mL/min/BSA 6:00 AM ONSITE CASE MANAGER Tongan Comment: ----ADDITIONAL INFORMATION---- Estimated GFR calculated using the 2009 CKD_EPI creatinine equation. eGFR-Black/ >90 >=60 mL/min/BSA 2019 6:00 AM ONSITE CASE MANAGER DTL Comment: ----ADDITIONAL INFORMATION---- Estimated GFR calculated using the 2009 CKD_EPI creatinine equation. Calcium, Total, S 8.5 (L) 8.6 - 10.0 mg/dL 12/17/2019 6:00 AM ONSITE CASE MANAGER DTL Glucose, S 81 70 - 140 mg/dL 12/17/2019 6:00 AM ONSITE CASE MANAGER D TL Specimen Anatomical Collection Method Collection Time Receive d Time (Source) Location / / Volume Laterality Blood (Blood, 12/17/2019 4:51 AM 12/17/19 5:02 Venous) ONSITE CASE MANAGER AM ONSITE CASE MANAGER Clare Murphy LAB BLOOD ADD-ON Performing Organization Address [facility] Phon e Number [facility] - [address] [place], [place] [address] [facility] [place] [address] Laboratories-[address] (ABNORMAL) CBC without Differential (12/17/2019 4:51 AM ONSITE CASE MANAGER) [facility] gist Method Time Signature Hemoglobin 11.5 (L) 11.6 - 12/17/2019 DTL 15.0 g/dL 5:07 AM ONSITE CASE MANAGER Hematocrit 33.7 (L) 35.5 - 12/17/2019 DTL 44.9 % 5:07 AM ONSITE CASE MANAGER Erythrocytes 3.78 (L) 3.92 - 12/17/2019 DTL 5.13 5:07 AM ONSITE CASE MANAGER x10(12)/L MCV 89.2 78.2 - 12/17/2019 DTL 97.9 fL 5:07 AM ONSITE CASE MANAGER RBC Distrib Width 12.2 12.2 - 12/17/2019 DTL 16.1 % 5:07 AM ONSITE CASE MANAGER Platelet Count 160 157 - 371 12/17/2019 DTL x10(9)/L 5:07 AM ONSITE CASE MANAGER Leukocytes 7.5 3.4 - 9.6 12/17/2019 DTL x10(9)/L 5:07 AM ONSITE CASE MANAGER Specimen Anatomical Collection Method Collection Time Receive d Time (Source) Location / / Volume Laterality Blood (Blood, 12/17/2019 4:51 AM 12/17/19 5:03 Venous) ONSITE CASE MANAGER AM ONSITE CASE MANAGER Jose Rafael Chew M.D. LAB BLOOD ADD-ON Performing Organization Address City/[facility] Code Phon e Number [facility] - [address] [place] [address] Laboratories-[facility] [address] [facility] Surgical Pathology, Frozen Lab (12/16/2019 11:55 AM ONSITE CASE MANAGER) Component Value Ref Test Analysis Performed At [facility] gist Range Method Time Signature 12/16/2019 STMA 5:47 PM ONSITE CASE MANAGER Report Randall Banuelos M.D. [phone] 12/16 [facility] electronically I verify that I have examined all relevant slides/ma terials 5:47 PM ONSITE CASE MANAGER signed by for the specimen(s) and rendered or confirmed the diagnosis. Gross Description A. ??Received fresh labeled panniculus is a 103 0 gram 12/16/2019 STMA aggregate of unremarkable skin and adipose tissue. ??Gross 5:47 PM ONSITE CASE MANAGER examination only. ??Grossed by SSF. Interpretation FINAL DIAGNOSIS 12/16/2019 [facility] A. ??Skin and soft tissue, panniculus, panniculectomy: ??A 5:47 PM ONSITE CASE MANAGER 1030 gram aggregate of unremarkable skin and adipose tissue. Gross examination only. Specimen (Source) Anatomical Collection Method Collection Time Re ceived Time Location / / Volume Laterality Tissue 12/16/2019 11:55 (Panniculus) AM ONSITE CASE MANAGER Comment: Please weigh specimen Narrative This result has an attachment that is no t available. Clare Murphy LAB SURG PATH ORDERABLES Performing Organization Address City/State/ZIP Code Phon e Number [place] [id number] [address] [place] [address] [facility] [address] [facility] documented in this encounter Visit Diagnoses Diagnosis Panniculitis - Primary Panniculitis documented in this encounter Admitting Diagnoses Diagnosis Panniculitis documented in this encounter Administered Medications Inactive Administered Medications - up to 3 most recent administrations Medication Order MAR Action Action Date Dose Rate Site acetaminophen tablet 1,000 mg Given 12/17/2019 3:56 AM ONSITE CASE MANAGER 1,000 mg (TYLENOL) 1,000 mg, oral, Every 6 hours, First dose on Sun12/16/19 at 1615, Start 6 hours after last dose. Do not exceed 4 grams in 24 hours. Given 12/16/2019 9:34 PM ONSITE CASE MANAGER 1,000 mg Given 12/16/2019 5:06 PM ONSITE CASE MANAGER 1,000 mg acetaminophen tablet 1,000 mg (TYLENOL) Given 12/16/2019 9:36 AM ONSITE CASE MANAGER 1,000 mg 1,000 mg, oral, Once, On Sun12/16/19 at 0930, For 1 dose, Pre-Op bupivacaine liposome (PF) 20 mL, Given 12/16/2019 1:47 PM ONSITE CASE MANAGER 40 mL Other bupivacaine 30 mL in sodium chloride (PF) 0.9 % 100 mL injection As needed, Starting on Sun12/16/19 at 1312, Intra-Op Given 12/16/2019 1:12 PM ONSITE CASE MANAGER 60 mL Other busPIRone tablet 15 mg (BUSPAR) Given 12/17/2019 8:37 AM ONSITE CASE MANAGER 15 mg 15 mg, oral, Daily, First dose on Sun12/17/19 at 0900 celecoxib capsule 400 mg (CeleBREX) Given 12/16/2019 9:38 AM ONSITE CASE MANAGER 400 mg 400 mg, oral, Once, On Sun12/16/19 at 0930, For 1 dose, Pre-Op, Director Of Instructional Technology, PreOp cholecalciferol (vitamin D3) tablet Given 12/17/2019 8:37 AM ONSITE CASE MANAGER 2,000 Units 2,000 Units 2,000 Units, oral, Daily, First dose on Sun12/17/19 at 0900, cholecalciferol (vitamin D3) orderable was interchanged for cholecalciferol (vitamin D3) tablet/capsule 25 mcg cholecalciferol equivalent to 1000 units cholecalciferol cyanocobalamin tablet 1,000 mcg (VITAMIN Given 12/17/2019 8: 37 AM ONSITE CASE MANAGER 1,000 mcg B12) 1,000 mcg, oral, Daily, First dose on Sun12/17/19 at 0900 enoxaparin injection 40 mg Given 12/17/2019 8:37 AM ONSITE CASE MANAGER 40 mg Left Upper Arm (LOVENOX) (Back) 40 mg, subcutaneous, Daily, First dose on Sun12/17/19 at 0900 fentaNYL injection 25 mcg (SUBLIMAZE) Given 12/16/2019 2:45 PM ONSITE CASE MANAGER 25 mcg 25 mcg, intravenous, Every 2 min PRN, For pain 4 or greater (maximum 100 mcg). If max dose of Fentanyl is reached and if pain is greater than 4, discontinue Fentanyl: give Hydromorphone, Starting on Sun12/16/19 at 1423, PACU (only) ferrous sulfate tablet 65 mg of iron Given 12/17/2019 8:37 AM ONSITE CASE MANAGER 65 mg of iron 65 mg of iron, oral, Daily, First dose on Sun12/17/19 at 0900 gabapentin tablet 600 mg (NEURONTIN) Given 12/16/2019 9:37 AM ONSITE CASE MANAGER 600 mg 600 mg, oral, Once, On Sun12/16/19 at 0930, For 1 dose, Pre-Op, Director Of Instructional Technology, PreOp gentamicin-polymixin B 20 mg-500,000 Given 12/16/2019 12:33 PM 1 ,000 mL Other Units irrigation (DABS_MODIFIED) ONSITE CASE MANAGER irrigation, Once in surgery, OR use only, Starting on Sun12/16/19 at 1020, For 1 dose, Intra-Op, *IRRIGATION ONLY* lactated ringers New Bag 12/16/2019 5:06 PM ONSITE CASE MANAGER 100 mL/hr 100 mL/hr 100 mL/hr, intravenous, Continuous, Starting on Sun12/16/19 at 1530 melatonin tablet 5 mg 5 mg, oral, Bedtime PRN, sleep, Starting on Sun 0 at 2122 pywaoslbdkxg-iiex-ZL-Ca-minerals 9 mg Given 12/17/2019 8:[address] 1 tablet iron-400 mcg tablet 1 tablet (THERAPEUTI C-M) 1 tablet, oral, Daily, First dose on Sun12/17/19 at 0900 ondansetron ODT disintegrating tablet 4 mg Given 12/16/2019 9:38 AM ONSITE CASE MANAGER 4 mg (ZOFRAN-ODT) 4 mg, sublingual, Once, On Sun12/16/19 at 0930, For 1 dose, Pre-Op, When splitting ODT at bedside, handle with gloves and a pill splitter to prevent moisture contact. oxyCODONE IR tablet 10 mg (ROXICODONE) Given 12/17/2019 9:22 AM ONSITE CASE MANAGER 10 mg 10 mg, oral, Every 4 hours PRN, moderate pain or score 4-6 of 10, severe pain or score 7-10 of 10, Starting on Sun12/16/19 at 1525 Given 12/17/2019 3:56 AM ONSITE CASE MANAGER 10 mg Given 12/16/2019 11:01 PM ONSITE CASE MANAGER 10 mg oxyCODONE IR tablet 5 mg (ROXICODONE) Given 12/16/2019 6:51 PM ONSITE CASE MANAGER 5 mg 5 mg, oral, Every 4 hours PRN, mild pain or score 1-3 of 10, Starting on Sun12/16/19 at 1525 PARoxetine tablet 40 mg (PAXIL) Given 12/17/2019 9:22 AM ONSITE CASE MANAGER 40 mg 40 mg, oral, Daily, First dose on Sun12/17/19 at 0900 scopolamine base 1 mg Medication Applied 12/16/2019 9:38 AM 1 patch Behind Left Ear over 3 days 1 patch ONSITE CASE MANAGER (TRANSDERM SCOP) 1 patch, transdermal, Administer over 72 Hours, Once as needed, nausea, vomiting, Starting on Sun12/16/19 at 0925, For 1 dose, Pre-Op, Contains 1.5 mg to deliver 1 mg/72 hours. sennosides-docusate sodium 8.6-50 mg per Given 12/17/2019 8:37 A M ONSITE CASE MANAGER 1 tablet tablet 1 tablet (SENOKOT-S) 1 tablet, oral, 2 times daily, First dose on Sun12/16/19 at 2100, Do not give if patient has diarrhea. Given 12/16/2019 9:34 PM ONSITE CASE MANAGER 1 tablet tranexamic acid 3 g in NaCl 0.9% 75 mL Given 12/16/2019 1:12 PM ONSITE CASE MANAGER 30 mL Other topical solution 75 mL, topical, Once in surgery, OR use only, Starting on Sun12/16/19 at 1020, For 1 dose, Intra-Op, For topical use ONLY documented in this encounter Active and Recently Administered Medications Times are shown in ONSITE CASE MANAGER. Scheduled Medication Order 12/15/2019 12/16/2019 12/17/2019 acetaminophen tablet 1,000 mg (TYLENOL) 1706 (Given - Provider: Dorota Tejeda RSarah.)6364 (Given - Provider: Carter Betts RSarah.) 0356 (Given - Provider: Carter Betts R.N.) 1,000 mg, oral, Every 6 hours, First dos e on Sun12/16/19 at 1615, Start 6 hours after last dose. Do not exceed 4 grams in 24 hours. acetaminophen tablet 1,000 mg (TYLENOL) (COMPLETED) 0936 (Given - Provider: Mary Hutson RRodrigoN.) 1,000 mg, oral, Once, On Sun12/16/19 at 0930, For 1 dose, Pre-Op busPIRone tablet 15 mg (BUSPAR) 0837 (Given - Provider: Makenna Squires R.N.) 15 mg, oral, Daily, First dose on [...] at 0930, For 1 dose, Pre- Op, Director Of Instructional Technology, PreOp cholecalciferol (vitamin D3) tablet 2,000 Units 0837 (Given - Provider: Makenna Squires R.N.) 2,000 Units, oral, Daily, First dose on Sun12/17/19 at 0900, cholecalciferol (vitamin D3) orderable was interchanged for cholecalciferol (vitamin D3) tablet/capsule 25 mcg cholecalciferol equivalent to 1000 units cholecalciferol cyanocobalamin tablet 1,000 mcg (VITAMIN B12) 0837 (Given - Provider: Laurence MendenhallNRodrigo) 1,000 mcg, oral, Daily, First dose on Sun12/17/19 at 0900 enoxaparin injection 40 mg (LOVENOX) 0837 (Given - Provider: Makenna Squires R.N.) 40 mg, subcutaneous, Daily, First dose on Sun12/17/19 at 0900 ferrous sulfate tablet 65 mg of iron 0837 (Given - Provider: Makenna Squires R.N.) 65 mg of iron, oral, Daily, First dose on Sun12/17/19 at 0900 gabapentin tablet 600 mg (NEURONTIN) (COMPLETED) 936 (Given - Provider: Mary Hutson R.N.) 600 mg, oral, Once, On Sun12/16/19 at 0930, For 1 dose, Pre- Op, Director Of Instructional Technology, PreOp taqhpzciiqae-pwuz-SW-Ca-minerals 9 mg ir on-400 mcg tablet 1 [...] moisture contact. PARoxetine tablet 40 mg (PAXIL) 921 (Given - Provider: Makenna Squires RCiera) 40 mg, oral, Daily, First dose on Sun12/17/19 at 0900 sennosides-docusate sodium 8.6-50 mg per tablet 1 tablet (SE NOKOT-S) 2133 (Given - Provider: Laurence tOtoNRodrigo) 37 (Given - Provider: Makenna Squires R.N.) 1 tablet, oral, 2 times daily, First dos e on Sun12/16/19 at 2100, Do not give if patient has diarrhea. Continuous Medication Order 12/15/2019 12/16/2019 12/17/2019 lactated ringers 1706 (New Bag - Provider: Jerry Tejeda RRodrigoNRodrigo) 100 mL/hr, intravenous, Continuous, Starting on Sun12/16/19 [...] mL injection (CANCELED) 1312 (Given - Provider: Katherine Cesar, M.S. - Comment: abdomen)1347 (Given - Provider: [...] 1445 (Given - Provider: Chhaya Terrell R.N., [facility]) 25 mcg, intravenous, Every 2 min PRN, Fo r pain 4 or greater (maximum 100 mcg). If max dose of Fentanyl is reached and if pain is greater than 4, discontinue Fentanyl: give Hydromorphone, Starting on Sun12/16/19 at 1423, PACU (only) gentamicin-polymixin B 20 mg-500,000 Uni ts irrigation (DABS_MODIFIED) (COMPLETED) 1233 (Given - Provider: Araseli DonohueB.S. - Comment: Abdomen) irrigation, Once in surgery, [...] 858 (Not Given - Provider: Dorota Tejeda RCiera - Reason: Patient/family refused - Comment: Pt only wanted to take 5 mg.)2301 (Given - Provider: Carter Betts RSarah.) 0356 (Given - Provider: Carter Betts RRodrigoN.)0936 (Given - Provider: Makenna Squires R.N.) 10 mg, oral, Every 4 hours PRN, moderate pain or score 4-6 of 10, severe pain or score 7-10 of 10, Starting on Sun12/16/19 at 1525 oxyCODONE IR tablet 5 mg (ROXICODONE) 18 51 (Given - Provider: Dorota Tejeda RCiera) 5 mg, oral, Every 4 hours PRN, [...] days 1 patch (TRANSDERM SCOP) ( CANCELED) 0938 (Medication Applied - Provider: Mary Hutson R.N.)1525 [...] documented as of this encounter Care Teams Seafood Specialist Relationship Specialty Start Date End Date Annemarie Montiel M.D. PCP - General 04/19/[address] [place] [id number] documented as of this encounter
--- OUTSIDE RECORDS SUMMARY | 2022-07-24 15:12 | XMS_ITS | Encounter Summary ---
:1985 Author Organization [facility] Address [address] [place] [address] Care Team Providers Name Role Phone Annemarie Montiel M.D. Primary Care Provider [phone] Reason for Visit Reason Comments Med Refill Encounter Details Date Type Department Care Team Description 08/11/2019 Refill Department of Yenifer Song M.D. Med Refill Medicine, [facility], [address] [place] [address] [address] [place] [address] [phone] Social History Tobacco Use Types Packs/Day Years [...] How often do you attend mosque or mormon Never 07/04/2019 services? 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 [address] [place], [place] [phone] (Wo rk) Scheduled Procedures Name Priority Associated Diagnoses Date/Time LIFT THIGH Excessive And Redundant Skin And Subcutaneous Tissue documented as of this encounter Visit Diagnoses Not on filedocumented in this encounter Additional Health Concerns Assessment Noted Time PHQ-9 Depression Total Score: 11 03/25/2019 1:49 PM CD T documented as of this encounter Care Teams Lyric Writer Relationship Specialty Start Date End Date Annemarie Montiel M.D. PCP - General 04/19/17 [address], [place] [address] documented as of this encounter
--- OUTSIDE RECORDS SUMMARY | 2022-07-24 15:12 | XMS_ITS | Encounter Summary ---
:1985 Author Organization [facility] Address [address] [place] [address] Care Team Providers Name Role Phone Annemarie Montiel M.D. Primary Care Provider [phone] Reason for Referral Outpatient (Routine) - Closed Specialty Diagnoses / Procedures Referred By Contact Refer red To Contact Plastic Surgery [facility] [address] [place] [phone] Referral ID Status Reason Start Date Expiration Date Visits Requ ested Visits Authorized [id number] Closed 11/26/2019 11/25/2020 1 1 ORK CONTROL OPERATORS SUPERVISOR Encounter Details Date Type Department Care Team Description 11/26/2019 Orders Only Division of Plastic Surgery Ailin Mir, in [facility] jeevan Banks, R.N. [address] [place] [phone] Social History Tobacco Use Types Packs/Day [...] 03/29/2020 relatives? How often do you attend taoist or sabianist Never 07/04/2019 services? Do you belong to any clubs or organizations such as No 07/04/2019 taoist groups, unions, fraternal or athletic groups, or [...] at Date Recorded Female 10/16/2018 10:53 AM NETWORK CONTROL OPERATORS SUPERVISOR documented as of this encounter Plan of Treatment Upcoming Encounters Date Type Specialty Care Team Description 08/17/2022 Procedure visit Neurology Marina Winter M.D., M.P.H. [address], [place] [phone] (Wo rk) Scheduled Procedures Name Priority Associated Diagnoses Date/Time LIFT THIGH Excessive And Redundant Skin And Subcutaneous Tissue Scheduled Referrals Name Type Priority Associated Diagnoses Order S chedule Plastic Surgery Outpatient Referral Routine Expec heaven: Pre Op (clinic) 12/15/2019, Expires: 11/26/2022 documented as of this encounter Visit Diagnoses Not on filedocumented in this encounter Additional Health Concerns Assessment Noted Time PHQ-9 Depression Total Score: 19 10/09/2019 11:[address] documented as of this encounter Care Teams Target Network Analyst Relationship Specialty Start Date End Date Annemarie Montiel M.D. PCP - General 04/19/17 [address] [place] [phone] documented as of this encounter
--- OUTSIDE RECORDS SUMMARY | 2022-07-24 15:12 | XMS_ITS | Encounter Summary ---
:1985 Author Organization [facility] Address [address] [place] [address] Care Team Providers Name Role Phone Annemarie Montiel M.D. Primary Care Provider [phone] Reason for Visit Outpatient (Routine) - Closed Specialty Diagnoses / Procedures Referred By Contact Refer red To Contact Plastic Surgery Diagnoses Surgery Bariatric Status Post Panniculitis Annemarie Montiel M.D. [facility] [address] [place] [address] Referral ID Status Reason Start Date Expiration Date Visits Requ ested Visits Authorized [id number] Closed 10/09/2019 10/08/2020 1 1 Encounter Details Date Type Department Care Team Description 11/07/2019 Comprehensive Visit Division of Plastic Pancho Surgery Bariatric Status Post; Surgery in , [place], Panniculitis [place], [place] M.B.B.S. [address] [facility] [address] [place] [phone] Social History Tobacco Use Types Packs/Day Years [...] How often do you attend episcopalian or orthodox Never 07/04/2019 services? 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 - 11/07/2019 10:30 AM CST REASON FOR CONSULT Body contouring after massive weight loss. HISTORY OF PRESENT ILLNESS The patient is a 34-year-old female, otherwise healthy, who underwent a massive weight loss with gastric sleeve in July 2018. She subsequently lost 140 pounds. Her weight has been stable at 168-170 pounds over the last 5 or 6 months. She is also status post 4 C-sections previously with the last 1in 2016 and also a subsequent hysterectomy and panniculectomy in the lower portion of the excess skin. After that procedure, she regained her weight before the gastric sleeve procedure. Her other medical and surgical history includes cholecystectomy laparoscopically in 2005, ex-lap in 2008 for a peritoneal adhesion. Her nutritional status has been improving. She is on iron supplementations. Her albumin obtained in April was 4.0. In terms of her review of systems, she has a significant symptomatic rash in the belly button regionand under the skin fold on the abdomen. She has tried xqez-eoe-[id number] yeast topical medications, but these are not helping much. He has used antifungal cream for at least 12 weeks with no improvement.In addition, her arm is hanging and causing irritation of the excess skin. SOCIAL HISTORY She is a nonsmoker. Has 4 kids at home. She is in a new job. OBJECTIVE PHYSICAL EXAMINATION Skin: She has excess skin in both the vertical and horizontal direction on the abdomen with yeast and skin irritation rash under the pannus. On the abdomen, she had a previous lower transverse scar from the and a midline vertical scar infraumbilical from the ex-lap. Small laparoscopic scar from the cholecystectomy. The bilateral arms have hanging excess skin bat wing. ASSESSMENT / PLAN #1 Massive weight loss, status post gastric sleeve in July 2018 #2 BMI of 28 #3 Status post previous hysterectomy, ex-lap, 4 C-sections, and cholecystectomy Discussed with the patient that we will try to submit to insurance for panniculectomy. We will try with the approach of a horizontal incision only pulling the skin down and see if we need to do the vertical incision Flur de Les. We will try to save her umbilicus if possible and bring this out. Discussed that brachioplasty would likely not be covered, and we will plan to do this in stages and will again discuss the other procedures after the panniculectomy. It takes 4-6 weeks for insurance to get back, and then we can discuss scheduling the surgery. Business card was given. She will contact us at that time. Questions answered. Seen with Dr. Deleon. DE SALES RECRUITER documented in this encounter Plan of Treatment Upcoming Encounters Date Type Specialty Care Team Description 08/17/2022 Procedure visit Neurology Marina Winter M.D., M.P.H. [address] [place] [phone] (Wo rk) Scheduled Procedures Name Priority Associated Diagnoses Date/Time LIFT THIGH Excessive And Redundant Skin And Subcutaneous Tissue documented as of this encounter Visit Diagnoses Diagnosis Surgery Bariatric Status Post Panniculitis documented in this encounter Additional Health Concerns Assessment Noted Time PHQ-9 Depression Total Score: 19 10/09/2019 11:[address] documented as of this encounter Care Teams Playground Director Relationship Specialty Start Date End Date Annemarie Montiel M.D. PCP - General 04/19/17 [address] [place] [phone] documented as of this encounter
--- OUTSIDE RECORDS SUMMARY | 2022-07-24 15:12 | XMS_ITS | Encounter Summary ---
:1985 Author Organization [facility] Address [address] [place] [address] Care Team Providers Name Role Phone Annemarie Montiel M.D. Primary Care Provider [phone] Encounter Details Date Type Department Care Team Description 11/06/2019 Clinical Communication Department of Maisha Song, Medicine, Porfirio aJramillo [facility], in [facility] [address] [place], [place] [address] [place], [place] [phone] (Wo rk) [address] [phone] Social History Tobacco Use Types Packs/Day Years [...] 03/29/2020 relatives? How often do you attend taoism or episcopalian Never 07/04/2019 services? Do you belong to any clubs or organizations such as No 07/04/2019 taoism groups, unions, fraternal or athletic groups, or [...] at Date Recorded Female 10/16/2018 10:53 AM TECHNOLOGY SALES REPRESENTATIVE documented as of this encounter Miscellaneous Notes Telephone Encounter - Nani Ramoszheng Zuniga - 11/06/2019 9:11 AM CST Reason for Communication: Patient calling in patient dropped off a medical opinion form a few weeks ago for Dr. Montiel to fill out. Patient is wondering if that is filled out and ready to be picked up. Current Can Nursing/Provider leave a detailed message: yes Did the patient refuse triage through Nurse line? (for symptom based concerns): Action Needed: Please call the patient back Name of Medication (if relevant): NOLOGY SALES REPRESENTATIVE documented in this encounter Plan of Treatment Upcoming Encounters Date Type Specialty Care Team Description 08/17/2022 Procedure visit Neurology Marina Winter M.D., M.P.H. [address] [phone] (Wo rk) Scheduled Procedures Name Priority Associated Diagnoses Date/Time LIFT THIGH Excessive And Redundant Skin And Subcutaneous Tissue documented as of this encounter Visit Diagnoses Not on filedocumented in this encounter Additional Health Concerns Assessment Noted Time PHQ-9 Depression Total Score: 19 10/09/2019 11:[address] documented as of this encounter Care Teams Video Technician Relationship Specialty Start Date End Date Annemarie Montiel M.D. PCP - General 04/19/[address] [phone] documented as of this encounter
--- OUTSIDE RECORDS SUMMARY | 2022-07-24 15:12 | XMS_ITS | Encounter Summary ---
:1985 Author Organization [facility] Address [address] [place] [address] Care Team Providers Name Role Phone Annemarie Montiel M.D. Primary Care Provider [phone] Reason for Referral MRI/CAT/PET Scan (Routine) - Closed Specialty Diagnoses / Procedures Referred By Contact Refer red To Contact Radiology Diagnoses Clare [facility] Procedures CT Abdomen Pelvis with IV Contrast M.B.B.S. [address] [place], [place] [address] Referral ID Status Reason Start Date Expiration Date Visits Requ ested Visits Authorized [id number] Closed 12/15/2019 12/14/2020 1 1 CAL BILLING AND CODING INSTRUCTOR Reason for Visit Outpatient (Routine) - Closed Specialty Diagnoses / Procedures Referred By Contact Refer red To Contact Plastic Surgery [facility] M.B.B[facility] [address] [place], [place] [address] Referral ID Status Reason Start Date Expiration Date Visits Requ ested Visits Authorized [id number] Closed 11/26/2019 11/25/2020 1 1 Encounter Details Date Type Department Care Team Description 12/15/2019 Office Visit Division of Plastic Obinna Deleon (Primary Surgery in [place], Surendra SparksBRodrigoS. Dx) [place] [address] [facility] [address] [place] [phone] Social History Tobacco Use Types Packs/Day Years [...] How often do you attend zoroastrianism or muslim Never 07/04/2019 services? 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 - 12/15/2019 2:15 PM CST Ms. Gomez is seen for a pre-op visit. No change since our last visit November 07, 2019. Likely, we will have to do a vertical component of the panniculectomy [id number]. Again, discussed T-junction and wound healing issues. We will plan to get a CT of the abdomen to evaluate for any hernias or otherfindings again today. Plan to have her stay overnight for observation purposes. Consent was signed today. CAL BILLING AND CODING INSTRUCTOR documented in this encounter Plan of Treatment Upcoming Encounters Date Type Specialty Care Team Description 08/17/2022 Procedure visit Neurology Marina Winter M.D., M.P.H. [address] [phone] (Wo rk) Scheduled Procedures Name Priority Associated Diagnoses Date/Time LIFT THIGH Excessive And Redundant Skin And Subcutaneous Tissue documented as of this encounter Results CT Abdomen Pelvis with IV Contrast (12/15/2019 4:11 PM MEDICAL BILLING AND CODING INSTRUCTOR) Anatomical Region Laterality Modality Abdomen, Pelvis, Abdominal RST LOS, N/A Comp uted Tomography, Computed Abdominal ARZ LOS, Abdominal FLA LOS Manjeet ography Specimen (Source) Anatomical Collection Method Collection Time Re ceived Time Location / / Volume Laterality 12/16/2019 7:15 AM MEDICAL BILLING AND CODING INSTRUCTOR Impressions 12/16/2019 7:18 AM MEDICAL BILLING AND CODING INSTRUCTOR Tiny fat-containing umbilical hernia. Abdomen and pelvis otherwise negative. Narrative 12/16/2019 7:18 AM MEDICAL BILLING AND CODING INSTRUCTOR EXAM: ??CT ABDOMEN PELVIS WITH IV CONTRAST [...] CONTRAST COMPARISON: CT the abdomen pelvis from 0 07/27/2017. FINDINGS: Tiny fat-containing umbilical hernia. Otherwise, [...] - Primary Panniculitis documented in this encounter Additional Health Concerns Assessment Noted Time PHQ-9 Depression Total Score: 19 10/09/2019 11:[address] documented as of this encounter Care Teams Club Room Attendant Relationship Specialty Start Date End Date Annemarie Montiel M.D. PCP - General 04/19/[address] [place] [phone] documented as of this encounter
--- OUTSIDE RECORDS SUMMARY | 2022-07-24 15:13 | XMS_ITS | Encounter Summary ---
:1985 Author Organization [facility] Address [address] [place] [address] Care Team Providers Name Role Phone Annemarie Montiel M.D. Primary Care Provider [phone] Reason for Visit Reason Comments Dizziness Encounter Details Date Type Department Care Team Description 10/31/2017 Emergency [facility] Pharyngitis Streptococcal [address] (Primary Dx) [place] [address] Social History Tobacco Use Types Packs/Day [...] How often do you attend adventist or spiritism Never 07/04/2019 services? Do you belong to [...] at Date Recorded Female 10/16/2018 10:53 AM PROJECT SAFETY MANAGER documented as of this encounter Medications at Time of Discharge Medication Sig Dispensed Refills Start Date End Date busPIRone (for_BUSPAR) BuSpar Dividose 15 mg 0 05/16/2018 15 mg tablet oral tablet See Instructions, 1 tab(s) PO 2xDay and may take 1 additional tab as needed for increased anxiety, 90 tab(s), 4 Refill(s) fluconazole Take 150 mg (1 tablet) 2 tablet 0 09/14/2017 0 03/26/2018 (for_DIFLUCAN) 150 mg by mouth now and 150 tablet mg (1 tablet) by mouth in 3 days if symptoms not resolved. Mis Prescription Misc Prescription 0 07/17/2017 12/16/2019 (Allergy Immunotherapy) Cocunut oil 1000mg tablet daily naproxen (for_NAPROSYN) Take 1 tablet by mouth 0 04/30/2017 02/27/2018 250 mg tablet 2 (two) times a day as needed. phentermine 37.5 mg Take 1 capsule by 0 7 03/27/2018 capsule mouth daily. valACYclovir (VALTREX) Take 1 tablet by mouth 0 1 03/26/2018 1000 mg tablet daily. venlafaxine XR (EFFEXOR Take 1 capsule by 0 08/2103/27/2018 XR) 150 mg 24 hr mouth daily. capsule venlafaxine XR (EFFEXOR Take 1 capsule by 0 12/2703/27/2018 XR) 75 mg 24 hr capsule mouth daily. zolpidem (AMBIEN) 10 mg Take 1 tablet by mouth 0 08/09/2017 01/21/2018 tablet at bedtime. documented as of this encounter Plan of Treatment Upcoming Encounters Date Type Specialty Care Team Description 08/17/2022 Procedure visit Neurology Marina Winter M.D., M.P.H. [address] [place], [place] [phone] (Wo rk) Scheduled Procedures Name Priority Associated Diagnoses Date/Time LIFT THIGH Excessive And Redundant Skin And Subcutaneous Tissue documented as of this encounter Visit Diagnoses Diagnosis Pharyngitis Streptococcal - Primary documented in this encounter Additional Health Concerns Assessment Noted Time PHQ-9 Depression Total Score: 13 08/21/2017 12:55 PM C DT documented as of this encounter Care Teams Fixture Maker Relationship Specialty Start Date End Date Annemarie Montiel M.D. PCP - General 04/19/170 [place] [address] documented as of this encounter
--- OUTSIDE RECORDS SUMMARY | 2022-07-24 15:13 | XMS_ITS | Encounter Summary ---
:1985 Author Organization [facility] Address [address] [place] [address] Care Team Providers Name Role Phone Annemarie Montiel M.D. Primary Care Provider [phone] Reason for Visit Reason Comments Med Refill Encounter Details Date Type Department Care Team Description 02/27/2018 Refill Department of Yenifer Song M.D. Med Refill Medicine, [facility], [address] [place] [address] [address] [place] [address] [facility] [phone] Social History Tobacco Use Types Packs/Day Years [...] 03/29/2020 relatives? How often do you attend baptism or rastafari Never 07/04/2019 services? 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 [address], [place] [phone] (Wo rk) Scheduled Procedures Name Priority Associated Diagnoses Date/Time LIFT THIGH Excessive And Redundant Skin And Subcutaneous Tissue documented as of this encounter Visit Diagnoses Not on filedocumented in this encounter Additional Health Concerns Assessment Noted Time PHQ-9 Depression Total Score: 13 08/21/2017 12:55 PM C DT documented as of this encounter Care Teams Installation And Service Technician Relationship Specialty Start Date End Date Annemarie Montiel M.D. PCP - General 04/19/[address] [place] [address] documented as of this encounter
--- OUTSIDE RECORDS SUMMARY | 2022-07-24 15:13 | XMS_ITS | Encounter Summary ---
:1985 Author Organization [facility] Address [address] [place] [address] Care Team Providers Name Role Phone Annemarie Montiel M.D. Primary Care Provider Encounter Details Date Type Department Care Team Description 10/08/2017 Abstract Department of Family Medicine, Provider, Historical [facility], in [place], [place] [address] [place] [address] Social History Tobacco Use Types Packs/Day Years Used Date Smoking Tobacco: Never Alcohol Habits Answer Date Recorded How often [...] How often do you attend caodaism or synagogue Never 07/04/2019 services? 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 [address] [place] [phone] (Wo rk) Scheduled Procedures Name Priority Associated Diagnoses Date/Time LIFT THIGH Excessive And Redundant Skin And Subcutaneous Tissue documented as of this encounter Visit Diagnoses Not on filedocumented in this encounter Additional Health Concerns Assessment Noted Time PHQ-9 Depression Total Score: 13 08/21/2017 12:55 PM C DT documented as of this encounter Care Teams Gas Prover Relationship Specialty Start Date End Date Annemarie Montiel M.D. PCP - General 04/19/[address] [phone] documented as of this encounter
--- OUTSIDE RECORDS SUMMARY | 2022-07-24 15:13 | XMS_ITS | Encounter Summary ---
:1985 Author Organization [facility] Address [address] [place] [address] Care Team Providers Name Role Phone Annemarie Montiel M.D. Primary Care Provider [phone] Reason for Visit Reason Comments Med Refill Encounter Details Date Type Department Care Team Description 05/16/2018 Refill Department of Yenifer Song M.D. Med Refill Medicine, [facility], [address] [place] [address] [address] [place] [address] [phone] Social History Tobacco Use Types Packs/Day Years [...] How often do you attend zoroastrianism or hoahaoism Never 07/04/2019 services? 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 [address], [place] [phone] (Wo rk) Scheduled Procedures Name Priority Associated Diagnoses Date/Time LIFT THIGH Excessive And Redundant Skin And Subcutaneous Tissue documented as of this encounter Visit Diagnoses Not on filedocumented in this encounter Additional Health Concerns Assessment Noted Time PHQ-9 Depression Total Score: 15 03/27/2018 5:04 PM CD T documented as of this encounter Care Teams Air Launch Weapons Technician Relationship Specialty Start Date End Date Annemarie Montiel M.D. PCP - General 04/19/[address] [place] [address] documented as of this encounter
--- OUTSIDE RECORDS SUMMARY | 2022-07-24 15:13 | XMS_ITS | Encounter Summary ---
:1985 Author Organization [facility] Address [address] [place] [address] Care Team Providers Name Role Phone Annemarie Montiel M.D. Primary Care Provider [phone] Encounter Details Date Type Department Care Team Description 10/16/2018 Orders Only Department of Annemarie Song, Surgery Bariatric Medicine, Porfirio Jaramillo Status Post (Primary Clinic, in [place], [address]) [place], [place] [address] [address] [place], [place] [phone] (Wo rk) [address] [phone] Social History Tobacco Use Types Packs/Day Years [...] 03/29/2020 relatives? How often do you attend yarsanism or druze Never 07/04/2019 services? 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 [address] [place], [place] [phone] (Wo rk) Scheduled Procedures Name Priority Associated Diagnoses Date/Time LIFT THIGH Excessive And Redundant Skin And Subcutaneous Tissue documented as of this encounter Visit Diagnoses Diagnosis Surgery Bariatric Status Post - Primary documented in this encounter Additional Health Concerns Assessment Noted Time PHQ-9 Depression Total Score: 15 10/16/2018 11:[address] documented as of this encounter Care Teams Operations Processor Relationship Specialty Start Date End Date Annemarie Montiel M.D. PCP - General 04/19/[address] [address] documented as of this encounter
--- OUTSIDE RECORDS SUMMARY | 2022-07-24 15:13 | XMS_ITS | Encounter Summary ---
:1985 Author Organization [facility] Address [address] [place] [address] Care Team Providers Name Role Phone Annemarie Montiel M.D. Primary Care Provider [phone] Encounter Details Date Type Department Care Team Description 09/06/[address] [facility] Promise Rouse M.D. [address] [place], [place] [phone] (Wo rk) Social History [...] How often do you attend muslim or cheondoism Never 07/04/2019 services? 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 encounter Last Filed Vital Signs Vital Sign Reading Time Taken Comments Blood Pressure 100/62 09/06/2017 1:17 PM CDT Pulse - - Temperature - - Respiratory Rate - - Oxygen Saturation - - Inhaled Oxygen Concentration - - Weight 127 kg (280 lb 3.3 oz) 09/06/2017 1:17 PM CDT Height 164 cm (5' 4.57) 09/06/2017 1:17 PM CDT Body Mass Index 47.26 09/06/2017 1:17 PM CDT documented in this encounter Medications at Time of Discharge Medication Sig Dispensed Refills Start Date End Date busPIRone (for_BUSPAR) BuSpar Dividose 15 mg 0 05/16/2018 15 mg tablet oral tablet See Instructions, 1 tab(s) PO 2xDay and may take 1 additional tab as needed for increased anxiety, 90 tab(s), 4 Refill(s) Misc Prescription Misc Prescription 0 07/17/2017 12/16/2019 (Allergy Immunotherapy) Cocunut oil 1000mg tablet daily naproxen (for_NAPROSYN) Take 1 tablet by mouth 0 04/30/2017 02/27/2018 250 mg tablet 2 (two) times a day as needed. phentermine Take 1 tablet by mouth 0 02/07/2017 1 12/17/2016 (for_ADIPEX-P) 37.5 mg daily. tablet phentermine 37.5 mg Take 1 capsule by [...] at bedtime. documented as of this encounter Progress Notes Shar Tejeda M.D. - 09/06/2017 11:23 AM CDT CHIEF COMPLAINT: Postoperative examination HISTORY OF PRESENT ILLNESS: This patient presents for a complete postoperative exam following total abdominal hysterectomy with panniculectomy. She has done well in the postoperative period without significant complications. She is now experiencing normal bowel and bladder habits. She is not experiencing any fever, chills, nausea, nor vomiting. Pain is well controlled. She is now returning to all normal activities of daily life. She noticed on the patient portal that her cholesterol was elevated andwould like that rechecked today. CURRENT MEDICATIONS and ALLERGIES have been reviewed and are current in the EMR as of today's date. Physical exam: Vital signs are reviewed, stable, and in the normal range as documented in the EMR as of today's date. General: well nourished, well developed female in no acute distress. Abdomen: Non tender. No erythema nor exudate. No hernias palpated. Pelvic: External genitalia, Bartholin, urethral, and Gallatin glands appear normal. Vaginal secretions are grossly physiologic. Pelvis is negative for masses nor tenderness. Pathology demonstrated no concern for malignancy. IMPRESSION/REPORT/PLAN: Post operative exam, surgically dismissed. Care of this patient is returned to her primary care provider. She is free to follow-up with me if any further gynecologic issues. Shar Del Angel Electronically Signed By: SHAR TEJEDA MD On: 09/07/2017 11:26 AM Source: [employer] Document Id: [id number] documented in this encounter Miscellaneous Notes Miscellaneous - Shar Tejeda M.D. - 09/07/2017 11:23 AM CDT Ambulatory Patient Summary [facility] [address] [place] [id number] Visit Information Name: NANCY PHILLIPS [facility] Number: [id number] Current Date: 09/07/2017 11:23:36 Physicians Attending Provider: SHAR TEJEDA MD Primary Care Provider: ANNEMARIE MONTIEL MD NANCY PHILLIPS has been given the following list of follow-up instructions, medication list, and patient education materials: Follow-up Instructions Your Medications Here is a list of your medications. It is important to take your medications as directed. Use a pillbox or chart to help remind you to take your medications. Please let your doctor or nurse know if you have problems taking your medications. Medication/Strength How to Take Indications/Special Instructions/Comments/Notes for Patient Medication Changes/Routing busPIRone (BuSpar Dividose 15 mg oral tablet) See Instructions 1 tab(s) PO 2xDay and may take 1 additional tab as needed for increased anxiety metroNIDAZOLE (Flagyl 500 mg oral tablet) 1 Tablet(s), Oral, every 8 hours x 14 day(s) New Routed [facility] [address] [place] [address] [facility] Prescription ([facility] Prescription) Cocunut oil 1000mg tablet daily multivitamin (B-Plex (Vitamin B Complex) oral tablet) 1 Tablet(s), Oral, once a day naproxen (naproxen 250 mg oral tablet) 1 Tablet(s), Oral, two times a day as needed for pain with food oxyCODONE-acetaminophen (oxyCODONE-acetaminophen 5 mg-325 mg oral tablet) 1 Tablet(s), Oral, every 4hours as needed for Pain No more than 4,000mg acetaminophen/24hrs phentermine (phentermine 37.5 mg oral capsule) 1 cap, Oral, once a day valACYclovir (Valtrex 1 g oral tablet) 1 Tablet(s), Oral, once a day x 5 day(s) venlafaxine (Effexor XR 150 mg oral capsule, extended release) 1 cap, Oral, once a day zolpidem (Ambien 10 mg oral tablet) 1 Tablet(s), Oral, once a day (at bedtime) Stop Taking the Following Medications: Medication list as of 09-07-17 11:23 Attention: If you have any medications at home that are not on this list, DO NOT take them until youcontact your provider for clarification. Give a copy of your medication list to your primary care provider. Update your medication list any time medications or doses are changed and carry your medication list at all times in case of emergency. Electronically Signed By: SHAR TEJEDA MD Signed On:07-SEP-2017 11:23:32 Your Allergies & Intolerances Substance Reaction Symptoms Category Comments No Known Allergies Drug Your Problem List Problem Status Onset Comments Endometriosis Pelvic Peritoneum Active 07/25/2004 Migraine headache Active 08/23/2010 Tattoo Active Genital herpes Active 02/19/2011 02/20/11 recurrent genital HSV Major Depressive Disorder, Recurrent Episode, Unspecified Degree Active 02/27/2011 02/27/11 depression, recurrent. Relationship problems Active 09/10/2012 Previous Section, Antepartum Condition or Complication Active 04/23/2013 Normal Preg Not First 1st Preg (IUPF) Active Morbid Obesity Body Mass Index (BMI) > 40 Adult Active Preg With Pers Hx Preeclampsia Previous Preg Active Discrepancy Uterine Size Date Antepartum Preg Active (C) Section Delivery Active DM Gestational Preg (GDM) Antepartum Active Hysterectomy Abdominal S/P Active Your Upcoming Appointments Date Time Location Provider No Appointments found Attention: Contact your local Clinic if further appointment detail needed. Consider Using Patient Online Services Patient Online Services is a secure online and Mobile application that lets you: ?? View lab and test results ?? View portions of your medical record including clinical notes, immunizations and discharge summaries ?? Request an appointment or medication refill ?? Review your appointment schedule ?? Send secure messages to your care team Its easy to create an account if you dont have one. Go to [email or web address] and click on Create Your Account. Then, follow the directions to complete the online form. Youll be asked for your [facility] number which you can find at the top of this document. Your Goals/Additional instructions: Source: [facility] POWERCHART Document Id: [id number] Miscellaneous - Shar Tejeda M.D. - 09/07/2017 11:23 AM CDT Ambulatory Discharge Medication List [address] [id number] Visit Information Name: NANCY PHILLIPS [facility] Number: [id number] Current Date: 09/07/2017 11:23:35 Attending Provider: SHAR TEJEDA MD Primary Care Provider: ANNEMARIE MONTIEL MD NANCY PHILLIPS has been given the following list of medications: Your Medications It is important to take your medications as directed. Use a pill box or chart to help remind you to take your medications. Please let your doctor or nurse know if you have problems taking your medications. Medication/Strength How to Take Indications/Special Instructions/Comments/Notes for Patient Medication Changes/Routing busPIRone (BuSpar Dividose 15 mg oral tablet) See Instructions 1 tab(s) PO 2xDay and may take 1 additional tab as needed for increased anxiety metroNIDAZOLE (Flagyl 500 mg oral tablet) 1 Tablet(s), Oral, every 8 hours x 14 day(s) [facility] [address] [place] [address] [facility] Prescription ([facility] Prescription) Cocunut oil 1000mg tablet daily multivitamin (B-Plex (Vitamin B Complex) oral tablet) 1 Tablet(s), Oral, once a day naproxen (naproxen 250 mg oral tablet) 1 Tablet(s), Oral, two times a day as needed for pain with food oxyCODONE-acetaminophen (oxyCODONE-acetaminophen 5 mg-325 mg oral tablet) 1 Tablet(s), Oral, every 4hours as needed for Pain No more than 4,000mg acetaminophen/24hrs phentermine (phentermine 37.5 mg oral capsule) 1 cap, Oral, once a day valACYclovir (Valtrex 1 g oral tablet) 1 Tablet(s), Oral, once a day x 5 day(s) venlafaxine (Effexor XR 150 mg oral capsule, extended release) 1 cap, Oral, once a day zolpidem (Ambien 10 mg oral tablet) 1 Tablet(s), Oral, once a day (at bedtime) Stop Taking the Following Medications: Medication list as of 09-07-17 11:23 Attention: If you have any medications at home that are not on this list, DO NOT take them until youcontact your provider for clarification. Give a copy of your medication list to your primary care provider. Update your medication list any time medications or doses are changed and carry your medication list at all times in case of emergency. Electronically Signed By: SHAR TEJEDA MD Signed On:07-SEP-2017 11:23:32 Additional Information: Source: [facility] POWERCHART Document Id: [id number] Miscellaneous - Nusrat Miller L.PRodrigoN. - 09/06/2017 4:48 PM CDT School Examiner Documentation School Examiner Documentation Entered On: 09/06/2017 16:48 CDT Performed On: 09/06/2017 16:48 CDT by NUSRAT MILLER LPN School Examiner Documentation Exam/Procedure Performed : pelvic CD School Examiner Present : Yes Present in Room During Exam/Procedure : Alone, Daughter, Other: friend NUSRAT MILLER LPN - 09/06/2017 16:48 CDT Source: [facility] [employer] Document Id: [id number] CDT!5 Bunny - Shar Tejeda M.D. - 09/06/2017 4:18 PM CDT Results Notification Document Contains Addenda Addendum by RADHA RHOADES on September 06, 2017 16:42:36 CDT patient notified. From: SHAR TEJEDA MD To: OW HOUSEHOLD COORDINATOR Nurse; Sent: 09/06/2017 16:18:03 CDT ! Show up: 09/06/2017 16:18:03 CDT Subject: Results Notification Actions: Notify patient of results Reminder Comments: Cholesterol is still high; she should make appointment with her primary care provider to discuss interventions to reduce that. Results: Date Result Name Ind Value Ref Range 09/06/2017 14:16 Cholesterol (H) 216 mg/dL ( - <=199) 09/06/2017 14:16 HDL 58 mg/dL (>=50 - ) 09/06/2017 14:16 LDL Direct (H) 148 mg/dL ( - <=129) Source: [facility] [employer] Document Id: [id number] Miscellaneous - Laverne Conti L.P.N. 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 Fuse Assembler Intake/History Adult Fuse Assembler Intake/History Entered On: 09/06/2017 13:18 CDT Performed On: 09/06/2017 13:17 CDT by LAVERNE CONTI LPN Intake Chief Complaint : 6 wk post abdominal hyst Systolic Blood Pressure : 100 mmHg Diastolic Blood Pressure : 62 mmHg NIBP Mean : 75 mmHg BP Location : Left upper extremity Blood Pressure Cuff Size : Regular Height : 164 cm(Converted to: 5 ft 5 inch(es), 65 inch(es)) Actual Weight : 127.1 kg(Converted to: 280 lb 3 oz) Dosing Weight Clinic : 127.1 kg Clinic BSA : 2.41 Body Mass Index : 47.26 kg/m2 LAVERNE CONTI LPN - 09/06/2017 13:17 CDT General Info Languages : Swedish Is Patient Female and 13-50 no hysterectomy : No LAVERNE CONTI LPN - 09/06/2017 13:17 CDT Subjective Pain Symptoms : No LAVERNE CONTI LPN - 09/06/2017 13:17 CDT Dependent Habits Exposure to Tobacco Smoke : Other: never Smoking Status : Never smoker Tobacco 2A : No Tobacco Use/Currently Using : No Tobacco Use/Last 30 Days : No Tobacco Use/Last 12 months : No LAVERNE CONTI LPN - 09/06/2017 13:17 CDT Caffeine Use Grid Caffeine Use : Current Type : Soft drinks Frequency : Daily Amount : regular 1-2 cans daily LAVERNE CONTI LPN - 09/06/2017 13:17 CDT [facility] Document Id: [id number] CDT!31 documented in this encounter Plan of Treatment Upcoming Encounters Date Type Specialty Care Team Description 08/17/2022 Procedure visit Neurology Marina Winter M.D., M.P.H. [address] [place], [place] [phone] (Wo rk) Scheduled Procedures Name Priority Associated Diagnoses Date/Time LIFT THIGH Excessive And Redundant Skin And Subcutaneous Tissue documented as of this encounter Procedures Procedure Name Priority Date/Time Associated Comments Diagnosis LDL CHOLESTEROL Routine 09/06/2017 2:16 PM Result s for this (BETA-QUANTIFICATION) CDT proced ure are in , S the results section. CHOLESTEROL, HDL, S Routine 09/06/2017 2:16 PM Re sults for this CDT procedure are i n the results section. CHOLESTEROL, TOTAL, S Routine 09/06/2017 2:16 PM Results for this CDT procedure are i n the results section. documented in this encounter Results (ABNORMAL) LDL Cholesterol (Beta-Quantification) (09/06/2017 2:16 PM CDT) P athologist Signature Direct LDL 148 (H) <=129 MGDL POWERCHART Comment: 2013 National Lipid Association recommen dations for LDL-C in adults ages 18 and up: Desirable <100 mg/dL Above desirable 100-129 mg/dL Borderline high 130-159 mg/dL High 160-189 mg/dL Very High 190 mg/dL 2013 National Lipid Association recommen dations for LDL-C in children ages 2 to 17. Acceptable <110 mg/dL Borderline High 110-129mg/dL High 130 mg/dL LDL-C >190mg/dL: The markedly elevated LDL level is suggestive of a genetic condition such as familial hypercholesterolemia(FH) or familial defective apolipoprotein B-100 (FDB). Molecular genetic t esting for FH and FDB is available kenu [facility]: FH/ADH Genetic Reflex [place] el (test ADHP). Acquired (non-genetic) causes of markedly increased LDL cholesterol include cholestatic liver disease due to the presence of LpX. If a genetic form of hypercholesterolemia is suspected, family studies including biochemical testing fo r lipids (total cholesterol,triglycerides, LDL cholesterol and HDL cholesterol) are recommended. ??Please contact the laboratory at or the on-line test catalog at [employer] for information about how to order these elle ts or to speak with a genetic counselor. Further interpretation would require clinical information. Specimen (Source) Anatomical Collection Method Collection Time Re ceived Time Location / / Volume Laterality Blood 09/06/2017 2:16 PM CDT Shar Tejeda M.D. LAB BLOOD ADD-ON Performing Organization Address City/State/ZIP Code Phon e Number POWERCHART POWERCHART NA (ABNORMAL) Cholesterol, Total (09/06/2017 2:16 PM CDT) P athologist Signature Cholesterol, 216 (H) <=199 MGDL POWERCHART Total Comment: 2013 National Lipid Association recommen dations for Total Cholesterol in adults ages 18 and up: Desirable <200 mg/dL Borderline high 200-239 mg/dL High 240 mg/dL 2013 National Lipid Association recommen dations for Total Cholesterol in children ages 2 to 17. Acceptable <170 mg/dL Borderline High 170-199 mg/dL High 200 mg/dL Specimen (Source) Anatomical Collection Method Collection Time Re ceived Time Location / / Volume Laterality Blood 09/06/2017 2:16 PM CDT Shar Tejeda M.D. LAB BLOOD ADD-ON Performing Organization Address City/State/ZIP Code Phon e Number POWERCHART POWERCHART NA Cholesterol, High-Density Lipoprotein (HDL) (09/06/2017 2:16 PM CDT) P athologist Signature HX HDL 58 >=50 MGDL POWERCHART Comment: 2013 National Lipid Association recommen dations for HDL-C in adults ages 18 and up: Low <40 mg/dL (Men) Low <50 mg/dL (Women) 2013 National Lipid Association recommen dations for HDL-C in children ages 2 to 17. Low <40 mg/dL Borderline Low 40-45 mg/dL Acceptable >45 mg/dL Specimen (Source) Anatomical Collection Method Collection Time Re ceived Time Location / / Volume Laterality Blood 09/06/2017 2:16 PM CDT Shar Tejeda M.D. LAB BLOOD ADD-ON Performing Organization Address City/State/ZIP Code Phon e Number POWERCHART POWERCHART NA documented in this encounter Visit Diagnoses Not on filedocumented in this encounter Additional Health Concerns Assessment Noted Time PHQ-9 Depression Total Score: 13 08/21/2017 12:55 PM C DT documented as of this encounter Care Teams Instrumentation Instructor Relationship Specialty Start Date End Date Annemarie Montiel M.D. PCP - General 04/19/17 [address] [place] [address] documented as of this encounter
--- OUTSIDE RECORDS SUMMARY | 2022-07-24 15:13 | XMS_ITS | Encounter Summary ---
:1985 Author Organization [facility] Address [address] [place] [address] Care Team Providers Name Role Phone Annemarie Montiel M.D. Primary Care Provider [phone] Encounter Details Date Type Department Care Team Description 11/25/2018 Orders Only Department of Family Annemarie Montiel, Surgery Bariatric Status Post (Primary Dx); Medicine, [facility], in [facility] [address] [place], [place] [address] [address] [place], [place] [phone] (Wo rk) [address] [phone] Social History Tobacco Use Types Packs/Day Years [...] 03/29/2020 relatives? How often do you attend orthodoxy or mormonism Never 07/04/2019 services? 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 - 11/25/2018 4:22 PM SKI TOP TRIMMER Associated Problem(s): Hypokalemia Related to bariatric surgery TOP TRIMMER documented in this encounter Plan of Treatment Upcoming Encounters Date Type Specialty Care Team Description 08/17/2022 Procedure visit Neurology Marina Winter M.D., M.P.H[facility] [address] [place], [place] [phone] (Wo rk) Scheduled Procedures Name Priority Associated Diagnoses Date/Time LIFT THIGH Excessive And Redundant Skin And Subcutaneous Tissue documented as of this encounter Results Potassium (01/16/2019 2:54 PM CDT) athologist Signature Potassium, S 4.5 3.6 - 5.2 01/16/2019 [facility] mmol/L 4:00 PM CDT [facility] Specimen Anatomical Collection Method Collection Time Receive d Time (Source) Location / / Volume Laterality Blood (Blood, 01/16/2019 2:54 PM 01/17/20 19 2:58 Venous) CDT PM CDT Annemarie Montiel M.D. LAB BLOOD ADD-ON Performing Organization Address City/State/ZIP Code Phon e Number [facility] [address] [place] [address] LAB documented in this encounter Visit Diagnoses Diagnosis Surgery Bariatric Status Post - Primary Hypokalemia documented in this encounter Additional Health Concerns Assessment Noted Time PHQ-9 Depression Total Score: 18 11/01/2018 8:11 AM CS T documented as of this encounter Care Teams Hat Brim And Crown Laminating Operator Relationship Specialty Start Date End Date Annemarie Montiel M.D. PCP - General 04/19/[address] [phone] documented as of this encounter
--- OUTSIDE RECORDS SUMMARY | 2022-07-24 15:13 | XMS_ITS | Encounter Summary ---
:1985 Author Organization [facility] Address [address] [place] [address] Care Team Providers Name Role Phone Annemarie Montiel M.D. Primary Care Provider [phone] Reason for Visit Reason Comments Med Refill Encounter Details Date Type Department Care Team Description 01/13/2018 Refill Department of Obstetrics and Gau Nahun kraus M.D. Med Refill Gynecology in [place] [id number] [address] [place] [address] [facility] [phone] Social History Tobacco Use Types Packs/Day Years [...] How often do you attend mandaen or orthodoxy Never 07/04/2019 services? 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 Nicki Montiel. documented in this encounter Plan of Treatment Upcoming Encounters Date Type Specialty Care Team Description 08/17/2022 Procedure visit Neurology Marina Winter M.D., M.P.H[facility] [address], [place] [phone] (Wo rk) Scheduled Procedures Name Priority Associated Diagnoses Date/Time LIFT THIGH Excessive And Redundant Skin And Subcutaneous Tissue documented as of this encounter Visit Diagnoses Not on filedocumented in this encounter Additional Health Concerns Assessment Noted Time PHQ-9 Depression Total Score: 13 08/21/2017 12:55 PM C DT documented as of this encounter Care Teams Poultry Cleaner Relationship Specialty Start Date End Date Annemarie Montiel M.D. PCP - General 04/19/17 [address], [place] [address] documented as of this encounter
--- OUTSIDE RECORDS SUMMARY | 2022-07-24 15:13 | XMS_ITS | Encounter Summary ---
:1985 Author Organization [facility] Address [address] [place] [address] Care Team Providers Name Role Phone Annemarie Montiel M.D. Primary Care Provider [phone] Reason for Visit Reason Comments Med Refill Encounter Details Date Type Department Care Team Description 03/26/2018 Refill Department of Yenifer Song M.D. Med Refill Medicine, [facility], [address] [place] [address] [address] [place] [address] [facility] [phone] Social History Tobacco Use Types Packs/Day Years [...] How often do you attend anabaptist or bahai Never 07/04/2019 services? 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 [address], [place] [phone] (Wo rk) Scheduled Procedures Name Priority Associated Diagnoses Date/Time LIFT THIGH Excessive And Redundant Skin And Subcutaneous Tissue documented as of this encounter Visit Diagnoses Not on filedocumented in this encounter Additional Health Concerns Assessment Noted Time PHQ-9 Depression Total Score: 13 08/21/2017 12:55 PM C DT documented as of this encounter Care Teams Casting Repairer Relationship Specialty Start Date End Date Annemarie Montiel M.D. PCP - General [address] [place] [address] documented as of this encounter
--- OUTSIDE RECORDS SUMMARY | 2022-07-24 15:13 | XMS_ITS | Encounter Summary ---
:1985 Author Organization [facility] Address [address] [place] [address] Care Team Providers Name Role Phone Annemarie Montiel M.D. Primary Care Provider [phone] Encounter Details Date Type Department Care Team Description 10/16/2018 Hospital Encounter Department of Annemarie Montiel Surg nick Bariatric Laboratory Medicine Ella Zuniga Status Post in [facility] [address] [place], [place] [address] [facility] [address] [place], [place] [phone] (Work) [phone] Social History Tobacco Use Types Packs/Day Years [...] How often do you attend orthodoxy or jew Never 07/04/2019 services? 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 Surgery Bariatric Status Post Misc Prescription Misc Prescription 0 07/17/2017 12/16/2019 (Allergy Immunotherapy) Cocunut oil 1000mg tablet daily venlafaxine (EFFEXOR) 75 Half Tab PO twice 60 tablet 3 10/0511/20/2018 mg tabletIndications: daily for 1 week and Depression Major then 1 tab PO twice Recurrent (HCC), Anxiety daily Generalized Disorder zolpidem (AMBIEN) 10 mg Take 1 tablet (10 mg 24 tablet 1 01/16/2019 tablet total) by mouth at bedtime. documented as of this encounter Progress Notes Annemarie Montiel M.D. - 10/16/2018 8:26 PM CST Hi Maria Alejandra-- So far what I have back looks good. The potassium is only a pinch low so you do not need to take potassium pills. Regarding the b12, you are on the low end of normal therefore recommend that you start taking vitamin B12 sublingual tablets once daily, which I will send your pharmacy. The most important thing will be to get into the dietitian to help with getting your protein levels back and improving her diet in general. Nciki Montiel MD ICK BARGE OPERATOR documented in this encounter Plan of Treatment Upcoming Encounters Date Type Specialty Care Team Description 08/17/2022 Procedure visit Neurology Marina Winter M.D., M.P.H. [address] [place], [place] [phone] (Wo rk) Scheduled Procedures Name Priority Associated Diagnoses Date/Time LIFT THIGH Excessive And Redundant Skin And Subcutaneous Tissue documented as of this encounter Procedures Procedure Name Priority Date/Time Associated Diagnosis Comme nts 25-HYDROXYVITAMIN Routine 10/16/2018 12:52 PM Surgery Bariatri c Results for this D2 AND D3, S DERRICK BARGE OPERATOR Status Post procedure are i n the results section. CBC WITHOUT Routine 10/16/2018 12:52 PM Surgery Bariatric Res ults for this DIFFERENTIAL, B DERRICK BARGE OPERATOR Status Post procedure ar e in the results section. THYROID-STIMULATING Routine 10/16/2018 12:52 PM Surgery Bariat christ Results for this HORMONE-SENSITIVE DERRICK BARGE OPERATOR Status Post procedure are in (S-TSH) the results section. MAGNESIUM, S Routine 10/16/2018 12:52 PM Surgery Bariatric Res ults for this DERRICK BARGE OPERATOR Status Post procedure are i n the results section. FERRITIN, S Routine 10/16/2018 12:52 PM Surgery Bariatric Res ults for this DERRICK BARGE OPERATOR Status Post procedure are i n the results section. VITAMIN B12 ASSAY, Routine 10/16/2018 12:52 PM Surgery Bariatr ic Results for this S DERRICK BARGE OPERATOR Status Post procedure are i n the results section. BASIC METABOLIC Routine 10/16/2018 12:52 PM Surgery Bariatric Results for this PANEL, S/P DERRICK BARGE OPERATOR Status Post procedure are i n the results section. documented in this encounter Results Magnesium (10/16/2018 12:52 PM DERRICK BARGE OPERATOR) athologist Signature Magnesium, S 1.7 1.7 - 2.3 10/16/2018 [facility] mg/dL 2:57 PM [facility]AlignAV[facility] LAB Specimen Anatomical Collection Method Collection Time Receive d Time (Source) Location / / Volume Laterality Blood (Blood, 10/16/2018 12:52 10/16/2018 1:29 Venous) PM DERRICK BARGE OPERATOR PM DERRICK BARGE OPERATOR Annemarie Montiel M.D. LAB BLOOD ADD-ON Performing Organization Address City/State/ZIP Code Phon e Number [facility] [address] [place] [address] LAB CBC without Differential (10/16/2018 12:52 PM DERRICK BARGE OPERATOR) athologist Signature Hemoglobin 14.0 11.6 - 10/16/2018 [facility] 15.0 g/dL 1:33 PM [facility] Hematocrit 41.2 35.5 - 10/16/2018 [facility] 44.9 % 1:33 PM [facility] LAB Erythrocytes 4.72 3.92 - 10/16/2018 [facility] 5.13 1:33 PM [facility] x10(12)/L [facility] LAB MCV 87.3 78.2 - 10/16/2018 [facility] 97.9 fL 1:33 PM [facility] LAB RBC Distrib Width 14.3 12.2 - 10/16/2018 [facility] 16.1 % 1:33 PM [facility] LAB Platelet Count 255 157 - 371 10/16/2018 [facility] x10(9)/L 1:33 PM [facility] LAB Leukocytes 8.3 3.4 - 9.6 10/16/2018 [facility] x10(9)/L 1:33 PM [facility] LAB Specimen Anatomical Collection Method Collection Time Receive d Time (Source) Location / / Volume Laterality Blood (Blood, 10/16/2018 12:52 10/16/2018 1:29 Venous) PM DERRICK BARGE OPERATOR PM DERRICK BARGE OPERATOR Annemarie Montiel M.D. LAB BLOOD ADD-ON Performing Organization Address City/[facility] Phon e Number [facility] [address], [place] [address] LAB Ferritin (10/16/2018 12:52 PM DERRICK BARGE OPERATOR) P athologist Signature Ferritin, S 116 13 - 150 10/16/2018 [facility] mcg/L 2:57 PM [facility] LAB Comment: Biotin has been identified by the isidra oneal as a potential interfering substance. ??Higher concentr ations of biotin may be found in multivitamins, hair/nail supple ments, and workout supplements. ??If the result does not [facility] clinical observations, repeat testing after patient refrains fr om the use of supplements for at least 12 hours. Specimen Anatomical Collection Method Collection Time Receive d Time (Source) Location / / Volume Laterality Blood (Blood, 10/16/2018 12:52 10/16/2018 1:29 Venous) PM DERRICK BARGE OPERATOR PM DERRICK BARGE OPERATOR Annemarie Montiel M.D. LAB BLOOD ADD-ON Performing Organization Address City/[facility]/ZIP [facility] Phon e Number [facility] [address], [place] [address] LAB Vitamin B12 Assay (10/16/2018 12:52 PM DERRICK BARGE OPERATOR) athologist Signature Vitamin B12 438 790 - 2002 10/16/2018 [facility] Assay, S ng/L 4:57 PM [facility] LAB Comment: Biotin has been identified by the isidra oneal as a potential interfering substance. ??Higher concentr ations of biotin may be found in multivitamins, hair/nail supple ments, and workout supplements. ??If the result does not [facility] clinical observations, repeat testing after patient refrains fr om the use of supplements for at least 12 hours. Specimen Anatomical Collection Method Collection Time Receive d Time (Source) Location / / Volume Laterality Blood (Blood, 10/16/2018 12:52 10/16/2018 4:05 Venous) PM DERRICK BARGE OPERATOR PM DERRICK BARGE OPERATOR Annemarie Montiel M.D. LAB BLOOD ADD-ON Performing Organization Address City/[facility] Phon e Number [facility] [address] [place] [address] [facility] S-TSH (Thyroid-Stimulating Hormone - Sensitive) (10/16/2018 12:52 PM DERRICK BARGE OPERATOR) athologist Signature TSH, Sensitive 0.8 0.3 - 4.2 10/16/2018 [facility] mIU/L 2:57 PM [facility] LAB Comment: Biotin has been identified by the isidra oneal as a potential interfering substance. ??Higher concentr ations of biotin may be found in multivitamins, hair/nail supple ments, and workout supplements. ??If the result does not [facility] clinical observations, repeat testing after patient refrains fr om the use of supplements for at least 12 hours. Specimen Anatomical Collection Method Collection Time Receive d Time (Source) Location / / Volume Laterality Blood (Blood, 10/16/2018 12:52 10/16/2018 1:29 Venous) PM DERRICK BARGE OPERATOR PM DERRICK BARGE OPERATOR Annemarie Montiel M.D. LAB BLOOD ADD-ON Performing Organization Address City/State/ZIP Code Phon e Number [facility] [place] [address] [place] [address] LAB (ABNORMAL) BMP (Basic Metabolic Panel) (10/16/2018 12:52 PM DERRICK BARGE OPERATOR) [facility] Time Signature Potassium, S 3.5 (L) 3.6 - 5.2 10/16/2018 [facility] mmol/L 2:57 PM [facility] Sodium, S 146 (H) 135 - 145 10/16/2018 [facility] mmol/L 2:57 PM [facility] Chloride, S 103 98 - 107 10/16/2018 [facility] mmol/L 2:57 PM [facility] Bicarbonate, S 29 22 - 29 10/16/2018 [facility] mmol/L 2:57 PM [facility] Anion Gap 14 7 - 15 10/16/2018 [facility] 2:57 PM [facility] BUN (Blood Urea 5 (L) 6 - 21 10/16/2018 [facility] Nitrogen), S mg/dL 2:57 PM [facility] Creatinine 0.47 (L) 0.59 - 10/16/2018 [facility] 1.04 mg/dL 2:57 PM [facility] eGFR-Non >90 >=60 10/16/2018 [facility] Black/ mL/min/BSA 2:57 PM [facility] [place] [facility] Comment: ----ADDITIONAL INFORMATION---- Estimated GFR calculated using the 2009 CKD_EPI creatinine equation. eGFR-Black/ >90 >=60 mL/min/BSA 2017 2:57 PM [facility] LAB Comment: ----ADDITIONAL INFORMATION---- Estimated GFR calculated using the 2009 CKD_EPI creatinine equation. Calcium, Total, S 9.4 8.6 - 10.0 mg/dL 10/16/2018 2 :57 PM [facility] [place] [facility] Glucose, S 84 70 - 140 mg/dL 10/16/2018 2:57 PM [facility] LAB Specimen Anatomical Collection Method Collection Time Receive d Time (Source) Location / / Volume Laterality Blood (Blood, 10/16/2018 12:52 10/16/2018 1:29 Venous) PM DERRICK BARGE OPERATOR PM DERRICK BARGE OPERATOR Annemarie Montiel M.D. LAB BLOOD ADD-ON Performing Organization Address City/State/ZIP Code Phon e Number [facility] [place] [address] [place] [address] LAB 25-Hydroxyvitamin D2 and D3 (10/16/2018 12:52 PM DERRICK BARGE OPERATOR) P athologist Signature 25-Hydroxy D2 <4.0 ng/mL 10/18/2018 [facility] 3:01 PM DERRICK BARGE OPERATOR [address] [facility] 25-Hydroxy D3 33 ng/mL 10/18/2018 [facility] ER 3:01 PM DERRICK BARGE OPERATOR [address] [facility] 25-Hydroxy D 33 ng/mL 10/18/2018 [facility] Total 3:01 PM DERRICK BARGE OPERATOR [address] [facility] Comment: ----REFERENCE VALUE---- 25-HYDROXY D TOTAL (D2+D3) Optimum level s in the healthy population are 20-50, patients with bone disease may benefit from higher levels within this r maria alejandra. ----ADDITIONAL INFORMATION---- This test was developed and its performa nce characteristics determined by [facility] in a manner consistent with CLIA requirements. This test has not been cleared or approved by the [place] Domin[place] d and Drug Administration. Specimen Anatomical Collection Method Collection Time Receive d Time (Source) Location / / Volume Laterality Blood (Blood, 10/16/2018 12:52 10/17/2018 9:28 Venous) PM DERRICK BARGE OPERATOR AM DERRICK BARGE OPERATOR Annemarie Montiel M.D. LAB BLOOD ADD-ON Performing Organization Address City/State/ZIP Code Phon e Number [facility] ER [address] [place], [place] [address] [facility] documented in this encounter Visit Diagnoses Diagnosis Surgery Bariatric Status Post documented in this encounter Additional Health Concerns Assessment Noted Time PHQ-9 Depression Total Score: 15 10/16/2018 11:[address] documented as of this encounter Care Teams Analysis Consultant Relationship Specialty Start Date End Date Annemarie Montiel M.D. PCP - General 04/19/[address] [place] [phone] documented as of this encounter
--- OUTSIDE RECORDS SUMMARY | 2022-07-24 15:13 | XMS_ITS | Encounter Summary ---
:1985 Author Organization [facility] Address [address] [place] [address] Care Team Providers Name Role Phone Annemarie Montiel M.D. Primary Care Provider [phone] Reason for Visit Reason Comments Foreign Body in Skin Encounter Details Date Type Department Care Team Description 02/09/2018 Emergency [facility] Foreign Body Arm [address] Superficial Initial Left [place] [phone] (Primary Dx) [phone] Social History Tobacco Use Types Packs/Day Years [...] How often do you attend gnosticism or congregational Never 07/04/2019 services? 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 Mis Prescription Mis Prescription 0 07/17/2017 12/16/2019 (Allergy Immunotherapy) Cocunut [...] Neurology Marina Winter M.D., M.P.H. [address] [place] [phone] (Wo rk) Scheduled Procedures Name Priority Associated Diagnoses Date/Time LIFT THIGH Excessive And Redundant Skin And Subcutaneous Tissue documented as of this encounter Visit Diagnoses Diagnosis Foreign Body Arm Superficial Initial Lef t - Primary documented in this encounter Additional Health Concerns Assessment Noted Time PHQ-9 Depression Total Score: 13 08/21/2017 12:55 PM C DT documented as of this encounter Care Teams Vascular Technician Relationship Specialty Start Date End Date Annemarie Montiel M.D. PCP - General 04/19/[address] [place] [phone] documented as of this encounter
--- OUTSIDE RECORDS SUMMARY | 2022-07-24 15:13 | XMS_ITS | Encounter Summary ---
:1985 Author Organization [facility] Address [address] [place] [address] Care Team Providers Name Role Phone Annemarie Montiel M.D. Primary Care Provider Reason for Visit Reason Comments Migraine Encounter Details Date Type Department Care Team Description 10/11/2017 - Emergency [facility] Migraine Headache 10/12/[address] (Primary Dx) [place] [phone] Social History Tobacco Use Types Packs/Day [...] How often do you attend jainism or rastafarian Never 07/04/2019 services? 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 [address] [place], [place] [phone] ([facility]) Scheduled Procedures Name Priority Associated Diagnoses Date/Time LIFT THIGH Excessive And Redundant Skin And Subcutaneous Tissue documented as of this encounter Visit Diagnoses Diagnosis Migraine Headache - Primary documented in this encounter Additional Health Concerns Assessment Noted Time PHQ-9 Depression Total Score: 13 08/21/2017 12:55 PM C DT documented as of this encounter Care Teams Photograph Retoucher Relationship Specialty Start Date End Date Annemarie Montiel M.D. PCP - General 04/19/[address] [place] [phone] documented as of this encounter
--- OUTSIDE RECORDS SUMMARY | 2022-07-24 15:13 | XMS_ITS | Encounter Summary ---
:1985 Author Organization [facility] Address [address] [place] [address] Care Team Providers Name Role Phone Annemarie Montiel M.D. Primary Care Provider [phone] Reason for Visit Reason Comments Follow-up cholesterol Encounter Details Date Type Department Care Team Description 10/16/2017 Office Visit Department of Family Tammy Schmitt rbid Obesity Body Mass Index Greater Than Or Equal To 40 Adult (HCC) (Primary Dx); Porfirio Valdes M.D. [facility], in [place] [address] [place], [place] [address] [address] [place], [place] [phone] (Work) [phone] Social History Tobacco Use Types Packs/Day Years [...] How often do you attend congregational or pentecostalism Never 07/04/2019 services? 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 documented as of this encounter Last Filed Vital Signs Vital Sign Reading Time Taken Comments Blood Pressure 98/64 10/16/2017 12:01 PM ICT SALES REPRESENTATIVE Pulse 68 10/16/2017 12:01 PM ICT SALES REPRESENTATIVE Temperature - - Respiratory Rate 16 10/16/2017 12:01 PM ICT SALES REPRESENTATIVE Oxygen Saturation - - Inhaled Oxygen Concentration - - Weight 128 kg (282 lb 10.1 oz) 10/16/2017 12:01 PM ICT SALES REPRESENTATIVE Height 164 cm (5' 4.57) 10/16/2017 12:01 PM ICT SALES REPRESENTATIVE Body Mass Index 47.67 10/16/2017 12:01 PM ICT SALES REPRESENTATIVE documented in this encounter Progress Notes Tammy Schmitt M.D. - 10/16/2017 11:45 AM CST SUBJECTIVE CHIEF COMPLAINT / REASON FOR VISIT Maria Alejandra Gomez is a 32 y.o. female who presents for evaluation of Follow-up (cholesterol). HISTORY OF PRESENT ILLNESS Patient is a 32-year-old female with past medical history of obesity and preeclampsia in who presents to discuss her elevated cholesterol. She has no personal history coronary artery disease.She does not know a lot about her biological dad's side of the family, but has been told that her dad has a history of coronary artery disease with multiple stents in his heart. She reports that her mom is healthy with no known heart problems but does have obesity and has recently had gastric bypass surgery. She has a half brother who is younger than her and healthy. Maria Alejandra tries to stay active but does not have a routine exercise program. She stays at home with her children. Her significant other is not working right now so was also home to help her. They cook most of their own food and she and her partner share this responsibility. They do tend to eat fried food fairly regularly, but Maria Alejandra thinks that they can cut down on this. She has thought about pursuing gastric bypass surgery, but does not want to drive back and forth between [facility] or [place] in the winter, so she is thinking about starting this process in the spring. OBJECTIVE Vitals: 10/16/17 1201 BP: 98/64 Pulse: 68 Resp: 16 PHYSICAL EXAM General: Patient is alert and in no acute distress Eyes: Sclerae are clear without discharge ENT: Moist mucous membranes Psych: Normal mood and affect ASSESSMENT / PLAN #1 Morbid Obesity Body Mass Index Greater Than Or Equal To 40 Adult (HCC) #2 Hyperlipidemia Mixed Reviewed her labs and there is no indication for cholesterol lowering medication at this time, however, she would benefit from lifestyle modification. Discussed the importance of regular, daily exercise and diet modification. We discussed that the best changes are small changes that she can maintain. She thinks that she can start walking for 20-30 minutes outside most days of the week. We also discussed exercise videos that she may be able to do with her kids. She is going to try to decrease fried foods and adopt a plant based diet. We talked about trying to decrease meat. Will plan to recheck her lipid panel in approximately 3 months. Offered a appointment with the dietitian and she declines at this time. She will continue to consider a weight loss surgery. - Lipid Panel; Future SALES REPRESENTATIVE documented in this encounter Plan of Treatment Upcoming Encounters Date Type Specialty Care Team Description 08/17/2022 Procedure visit Neurology Marina Winter M.D., M.P.H. [address] [place] [phone] (Wo rk) Scheduled Procedures Name Priority Associated Diagnoses Date/Time LIFT THIGH Excessive And Redundant Skin And Subcutaneous Tissue documented as of this encounter Visit Diagnoses Diagnosis Morbid Obesity Body Mass Index Greater T rivas Or Equal To 40 Adult (HCC) - Primary Hyperlipidemia Mixed documented in this encounter Additional Health Concerns Assessment Noted Time PHQ-9 Depression Total Score: 13 08/21/2017 12:55 PM C DT documented as of this encounter Care Teams Wood Mill Supervisor Relationship Specialty Start Date End Date Annemarie Montiel M.D. PCP - General 04/19/17 [address] [place] [phone] documented as of this encounter
--- OUTSIDE RECORDS SUMMARY | 2022-07-24 15:13 | XMS_ITS | Encounter Summary ---
:1985 Author Organization [facility] Address [address] [place] [address] Care Team Providers Name Role Phone Annemarie Montiel M.D. Primary Care Provider [phone] Reason for Visit Reason Comments Follow-up Depression Anxiety Weight Loss Outpatient (Routine) - Closed Specialty Diagnoses / Procedures Referred By Contact Refer red To Contact Family Medicine Annemarie Montiel M.D. [facility] Region [address] [place] [address] Referral ID Status Reason Start Date Expiration Date Visits Requ ested Visits Authorized [id number] Closed 11/20/2018 11/20/2019 1 1 Encounter Details Date Type Department Care Team Description 01/16/2019 Office Visit Department of Annemarie Song, Depression Major Recurrent (HCC) (Primary Dx); MedicinePorfirio M.D. Anxiety Generalized Disorder; Clinic, in [place], [address] Surgery Bariatric Status Post; [place], [place] Deficiency Vitamin D [address] [place] [id number] [place], [place] [phone] (Wo rk) [address] [phone] Social History Tobacco Use Types Packs/Day Years [...] How often do you attend protestant or presybeterian Never 07/04/2019 services? 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 - 01/16/2019 4:00 PM CDT [facility] OFFICE LOCATION: [address] [place] [address] Sunday through Sunday For appointment: documented in this encounter Progress Notes Annemarie Montiel M.D. - 01/16/2019 4:00 PM CDT SUBJECTIVE CHIEF COMPLAINT / REASON FOR VISIT Followup depression. HISTORY OF PRESENT ILLNESS Maria Alejandra Gomez is a 33 y.o. female who presents to the clinic today for followup depression. She states that she stopped taking all her medications due to nausea. She has not been doing well in terms of her depression. She has been struggling with hair loss. She has not been eating anything because when she does, she gets sick. She did recently undergo gastric bypass and she has been struggling to eat because of this. She has not been sleeping at night. She did have her potassium level drawn today and this was normal. She has not been taking her potassium supplement. She does not have much support in the area. The father of her some of her children causes her significant stress as well. CURRENT MEDICATIONS Current Outpatient Prescriptions Medication Sig Dispense Refill ??? cyanocobalamin (VITAMIN B12) 500 mcg SL tablet Take 2 tablets (1,000 mcg total) by mouth daily. (Patient taking differently: Take 1,000 mcg by mouth daily. Not currently taking due to nausea. ) 60 each 11 ??? Misc Prescription (Allergy Immunotherapy) Misc Prescription Cocunut oil 1000mg tablet daily ??? valACYclovir (VALTREX) 1000 mg tablet TAKE ONE TABLET BY MOUTH ONCE DAILY FOR 5 DAYS (Patient not taking: Reported on 01/16/2019) 15 tablet 1 No current facility-administered medications [...] Than Or Equal To 40 Adult (HCC) SURGICAL HISTORY Past Surgical History: Procedure Laterality Date ??? BARIATRIC SURGERY ??? BILATERAL TUBAL LIGATION 12/01/2016 ??? SECTION 07/02/2005 ??? SECTION 02/19/2011 ??? SECTION 05/09/2013 ??? SECTION 12/01/2016 ??? CHOLECYSTECTOMY 11/29/2005 ??? LAPAROTOMY EXPLORATORY 2009 peritoneal adhesion divided ??? TONSILLECTOMY AND ADENOIDECTOMY 1995 ??? TOTAL ABDOMINAL HYSTERECTOMY 07/25/2017 with panniculectomy OBJECTIVE VITAL SIGNS Vitals: 01/16/19 1619 BP: 102/74 Patient Position: Sitting Pulse: 72 Temp: 36.6 ??C Resp: 16 Weight: 89.8 kg TempSrc: Temporal Body mass index is 32.01 kg/m??. PHYSICAL EXAMINATION General: Alert, oriented female, well developed and well nourished. Non distressed. Heart: Regular rate and rhythm. Normal S1 and S2. No murmur or bruit. Lungs: Clear. No wheezes or crackles. Normal inspiratory to expiratory ratio. Mental: Pleasant but markedly flattened and depressed mood and affect. PHQ-9 Total Score (max 27): 13 (01/16/19 1501) BENITA-7 Total Score (max 21): 19 (01/16/19 1501) Neuro: Cranial nerves II-XII grossly intact. No focal deficit. ASSESSMENT / PLAN 1. Surgery Bariatric Status Post - cyanocobalamin (VITAMIN B12) 500 mcg SL tablet; Take 2 tablets (1,000 mcg total) by mouth daily. Dispense: 60 each; Refill: 11 2. Deficiency Vitamin D - ergocalciferol (DRISDOL) 50,000 Unit capsule; Take 1 capsule (50,000 Units total) by mouth 2 (two)times a week. Dispense: 16 capsule; Refill: 0 3. Anxiety Generalized Disorder 4. Depression Major Recurrent (HCC) - Medical opinion form is completed for [facility]. Given her degree of depression at this time, she is unable to work. Goal to return to work by March 05. Recommended that she establish with therapy and did provide information for [facility]. She will followup in 4-6 weeks for a recheck. - mirtazapine (REMERON ADELA-TAB) 15 mg disintegrating tablet; Take 1 tablet (15 mg total) by mouth atbedtime. Dispense: 30 tablet; Refill: 11 Total time so the patient today 25 min of which 20 min counseling and coordination of care This document serves as a record of services personally performed by Annemarie Montiel MD. It was created on their behalf by April huertas trained medical insurance collector. The creation of this record is based on the scribe's personal observations and the provider's statements to them. This document has been latricia cked and approved by the attending provider. documented in this encounter Plan of Treatment Upcoming Encounters Date Type Specialty Care Team Description 08/17/2022 Procedure visit Neurology Marina Winter M.D., M.P.H. [address] [place], [place] [phone] (Wo rk) Scheduled Procedures Name Priority Associated Diagnoses Date/Time LIFT THIGH Excessive And Redundant Skin And Subcutaneous Tissue documented as of this encounter Visit Diagnoses Diagnosis Depression Major Recurrent (HCC) - Prima ry Anxiety Generalized Disorder Surgery Bariatric Status Post Deficiency Vitamin D documented in this encounter Additional Health Concerns Assessment Noted Time PHQ-9 Depression Total Score: 13 01/16/2019 3:01 PM CD T documented as of this encounter Care Teams Portrait Photographer Relationship Specialty Start Date End Date Annemarie Montiel M.D. PCP - General 04/19/[address], [place] [address] documented as of this encounter
--- OUTSIDE RECORDS SUMMARY | 2022-07-24 15:13 | XMS_ITS | Encounter Summary ---
:1985 Author Organization [facility] Address [address] [place] [address] Care Team Providers Name Role Phone Annemarie Montiel M.D. Primary Care Provider [phone] Reason for Visit Reason Comments Dysuria sx since yesterday Encounter Details Date Type Department Care Team Description 12/08/2018 Office Visit Urgent Care in [place], Dysuria (Primary Dx) Sagar Monroy M.D. [address] [place] [address] [place], [place] [phone] Social History Tobacco Use Types Packs/Day Years [...] How often do you attend judaism or evangelical Never 07/04/2019 services? 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 - 12/08/2018 11:45 AM CST CHIEF COMPLAINT / REASON FOR VISIT Maria Alejandra Gomez is a 33 y.o. female who presents for evaluation of Dysuria (sx since yesterday ). HISTORY OF PRESENT ILLNESS Patient complains of a sharp pain in the bladder area that is been going on for the last day. She has not had a fever associated with this. She was just checked for sexually transmitted infections 1 week ago and that was normal. She has had bladder infections in the past and it feels similar to that. She has had pain when she urinates with pressure and frequency. No urgency. She has not had significant back pain. Patient Active Problem List Diagnosis ??? Morbid Obesity Body Mass Index Greater Than Or Equal To 40 Adult (HCC) ??? Depression Major Recurrent (HCC) ??? Anxiety Generalized Disorder ??? Herpes Genitalis ??? Hysterectomy Abdominal Status Post ??? Migraine Headache ??? Surgery Bariatric Status Post ??? Hypokalemia Current Outpatient Prescriptions Medication Sig Dispense Refill ??? cyanocobalamin (VITAMIN B12) 500 mcg SL tablet Take 2 tablets (1,000 mcg total) by mouth daily. 60 each 11 ??? Misc Prescription (Allergy Immunotherapy) Misc Prescription Cocunut oil 1000mg tablet daily ??? potassium chloride (KLORCON/K-TAB) 10 mEq ER tablet Take 1 tablet (10 mEq total) by mouth daily with breakfast. Do not crush or chew. 30 tablet 3 ??? valACYclovir (VALTREX) 1000 mg tablet TAKE ONE TABLET BY MOUTH ONCE DAILY FOR 5 DAYS 15 tablet 1 ??? venlafaxine (EFFEXOR) 75 mg tablet Take 1.5 tablets (112.5 mg total) by mouth 2 (two) times a day with meals. 60 tablet 3 ??? zolpidem (AMBIEN) 10 mg tablet Take 1 tablet (10 mg total) by mouth at bedtime. 24 tablet 1 No current facility-administered medications for this visit. Allergies Allergen Reactions ??? Adhesive Tape-Silicones Rash ??? House Dust Mite Rash BP 125/63 (BP Location: Right arm, Patient Position: Sitting, Cuff Size: Large) Pulse 97 Temp 36.6 ??C (Oral) Wt 96.1 kg LMP 06/08/2017 SpO2 98% BMI 34.25 kg/m?? The following portions of the patient's history were reviewed and updated as appropriate: Past history, Medications, allergies, and current Vital Signs. PHYSICAL EXAM On exam today there is no CVA tenderness but she does complain of some mild back pain. There is suprapubic pressure. ASSESSMENT / PLAN 1. Dysuria Urinalysis appears suspicious for bladder infection. I recommend Macrobid and symptomatic care discussed including pushing fluids, and acidyfying the urine with vitamin-C or cranberry pills. Return if this seems to worsen or not improve. It did not look suspicious for a kidney infection. Culture is pending and we will contact her with those results and if we need to change the antibiotic based on resistance patterns. She will return if symptoms worsen. - Urinalysis with Microscopic if Indicated - Bacterial Culture, Aerobic + Susc, Urine This note has been written using fluency direct voice recognition dictation. Typographical errors may occur. For any concerns regarding accuracy or clarification of this note, please contact the author. CISE SCIENTIST documented in this encounter Plan of Treatment Upcoming Encounters Date Type Specialty Care Team Description 08/17/2022 Procedure visit Neurology Marina Winter M.D., M.P.H. [address] [place], [place] [phone] (Wo rk) Scheduled Procedures Name Priority Associated Diagnoses Date/Time LIFT THIGH Excessive And Redundant Skin And Subcutaneous Tissue documented as of this encounter Procedures Procedure Name Priority Date/Time Associated Comments Diagnosis URINALYSIS WITH STAT 12/08/2018 11:37 Dysuria Results for this MICROSCOPIC IF AM EXERCISE SCIENTIST procedure are in INDICATED, U the results section. MICROSCOPIC AUTOMATED STAT 12/08/2018 11:37 Re sults for this AM EXERCISE SCIENTIST procedure are i n the results section. BACTERIAL CULTURE, STAT 12/08/2018 11:37 Dysuria Resul ts for this AEROBIC + SUSC, URINE AM EXERCISE SCIENTIST proced ure are in the results section. documented in this encounter Results (ABNORMAL) Microscopic Automated (12/08/2018 11:37 AM EXERCISE SCIENTIST) athologist Signature White Blood >100 (A) /hpf 12/08/2018 [facility] Cells 11:59 AM [facility]- [facility] LAB Comment: ----REFERENCE VALUE---- Males: 0-3 Females: 0-10 Unknown: 0-10 Red Blood Cells 31-40 (A) 0 - 2 /hpf 12/08/2018 11:59 AM [facility] [place] [facility]- [employer] LAB Dysmorphic Red Blood <=25 <=25 % 12/08/2018 11:59 AM [facility]- [employer] LAB Hyaline Casts 4-10 /lpf 12/08/2018 11:59 AM [facility] Squamous Cells 11-20 /hpf 12/08/2018 11:59 AM [facility]- [facility] Bacteria Present (A) None Seen 12/08/2018 11:59 AM [facility] EXERCISE SCIENTIST SYSTEM- [facility] LAB Specimen Anatomical Collection Method Collection Time Receive d Time (Source) Location / / Volume Laterality Urine 12/08/2018 11:37 12/08/2018 AM EXERCISE SCIENTIST 11:50 AM EXERCISE SCIENTIST [place] M.D. LAB URINE ORDERABLES Performing Organization Address City/State/ZIP Code Phon e Number [facility] [employer] [address] [place] [address] LAB (ABNORMAL) Bacterial Culture, Aerobic + Susc, Urine (12/08/2018 11:37 AM EXERCISE SCIENTIST) [facility] gist Method Time Signature Bacterial With Mixed 12/10/2018 [facility] Culture, carmelo. (A) 7:50 AM EXERCISE SCIENTIST HEALTH Aerobic, SYSTEM- Urine [place] [facility] Bacterial ESCHERICHIA COLI 12/10/2018 [facility] Culture, >100,000 cfu/mL 7:50 AM EXERCISE SCIENTIST HEALTH Aerobic, (A) SYSTEM- Urine [place] [facility] Specimen Anatomical Collection Method Collection Time Receive d Time (Source) Location / / Volume Laterality Urine (Urine, 12/08/2018 11:37 12/08/2018 3:28 [place]) AM EXERCISE SCIENTIST PM EXERCISE SCIENTIST Comment: Specimen Source Site: Urine Organism Antibiotic Method Susceptibility Escherichia coli Ampicillin SUSCEPTIBILITY, <=2 mcg/mL: Korin ceptible EMY (MCG/ML) Escherichia coli Ampicillin + Sulbactam SUSCEPTIBILITY, <=2 mcg/ mL: Susceptible EMY (MCG/ML) Escherichia coli Piperacillin + Tazobactam SUSCEPTIBILITY, <=4 m cg/mL: Susceptible EMY (MCG/ML) Escherichia coli Cefazolin SUSCEPTIBILITY, <=4 mcg/mL: Korin ceptible EMY (MCG/ML) Escherichia coli Ceftazidime SUSCEPTIBILITY, <=1 mcg/mL: Korin ceptible EMY (MCG/ML) Escherichia coli Ceftriaxone SUSCEPTIBILITY, <=1 mcg/mL: Korin ceptible EMY (MCG/ML) Escherichia coli Cefepime SUSCEPTIBILITY, <=1 mcg/mL: Korin ceptible EMY (MCG/ML) Escherichia coli Aztreonam SUSCEPTIBILITY, <=1 mcg/mL: Korin ceptible EMY (MCG/ML) Escherichia coli Ertapenem SUSCEPTIBILITY, <=0.5 mcg/mL: EMY (MCG/ML) Susceptible Escherichia coli Meropenem SUSCEPTIBILITY, <=0.25 mcg/mL: EMY (MCG/ML) Susceptible Escherichia coli Gentamicin SUSCEPTIBILITY, <=1 mcg/mL: Korin ceptible EMY (MCG/ML) Escherichia coli Tobramycin SUSCEPTIBILITY, <=1 mcg/mL: Korin ceptible EMY (MCG/ML) Escherichia coli Levofloxacin SUSCEPTIBILITY, <=0.12 mcg/mL: EMY (MCG/ML) Susceptible Escherichia coli Nitrofurantoin SUSCEPTIBILITY, <=16 mcg/mL: [place] sceptible EMY (MCG/ML) Escherichia coli Trimethoprim + SUSCEPTIBILITY, <=20 mcg/mL: [place] sceptible Sulfamethoxazole EMY (MCG/ML) [place] M.D. LAB MICROBIOLOGY - GENERAL O RDERABLES Performing Organization Address City/State/ZIP Code Phon e Number [facility] [address] [place] [address] LAB (ABNORMAL) Urinalysis with Microscopic if Indicated (12/08/2018 11:37 AM EXERCISE SCIENTIST) P athologist Signature Source [place] 12/08/2018 [facility] 12:03 PM [facility] Clarity Cloudy (A) Clear 12/08/2018 [facility] 11:59 AM [facility] Color Yellow 12/08/2018 [facility] 11:59 AM [facility] [place] LAB Comment: ----REFERENCE VALUE---- Colorless Yellow [place] Blood Large (A) Negative 12/08/2018 11:59 AM [facility] [place] [facility] Nitrite Positive (A) Negative 12/08/2018 11:59 AM [facility] [place] [facility] Leukocyte Esterase Large (A) Negative 12/08/2018 11:59 AM [facility] [place] [facility] Protein 100 (A) mg/dL 12/08/2018 11:59 AM [facility] Comment: ----REFERENCE VALUE---- Negative Trace Glucose Negative Negative mg/dL 12/08/2018 11:59 AM [facility] [place] [facility] Ketone 15 (A) Negative mg/dL 12/08/2018 11:59 AM [facility] Bilirubin Negative Negative 12/08/2018 11:59 AM [facility] LAB pH 5.5 5.0 - 8.0 12/08/2018 11:59 AM [facility] LAB Specific Serafina 1.018 1.001 - 1.035 12/08/2018 11:59 AM [facility] Urobilinogen 0.2 0.2 - 1.0 12/08/2018 11:59 AM [facility] Specimen Anatomical Collection Method Collection Time Receive d Time (Source) Location / / Volume Laterality Urine (Urine, 12/08/2018 11:37 12/08/2018 [place]) AM EXERCISE SCIENTIST 11:50 AM EXERCISE SCIENTIST [place] M.D. LAB URINE ORDERABLES Performing Organization Address City/State/ZIP Code Phon e Number [facility] [place] [address] [place] [address] LAB documented in this encounter Visit Diagnoses Diagnosis Dysuria - Primary documented in this encounter Additional Health Concerns Assessment Noted Time PHQ-9 Depression Total Score: 18 11/01/2018 8:11 AM CS T documented as of this encounter Care Teams Clinic Scheduler Relationship Specialty Start Date End Date Annemarie Montiel M.D. PCP - General 04/19/172199 [place] [phone] documented as of this encounter
--- OUTSIDE RECORDS SUMMARY | 2022-07-24 15:13 | XMS_ITS | Encounter Summary ---
:1985 Author Organization [facility] Address [address] [place] [address] Care Team Providers Name Role Phone Annemarie Montiel M.D. Primary Care Provider [phone] Reason for Visit Reason Comments med check Sore Throat and coughing for the last we ek Encounter Details Date Type Department Care Team Description 03/27/2018 Office Visit Department of Annemarie Song Depression Major Recurrent (HCC) (Primary Dx); Porfirio Valdes M.D. Anxiety Generalized Disorder; Clinic, in [place], [address] Morbid Obesity Body Mass Index Greater T rivas Or Equal To 40 Adult (HCC); [place], [place] Infection Upper Respiratory [address] [address] [place], [place] [phone] (Wo rk) [address] [phone] Social History Tobacco Use Types Packs/Day Years [...] How often do you attend episcopal or quaker Never 07/04/2019 services? 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 - 03/27/2018 5:15 PM CDT CHIEF COMPLAINT / REASON FOR VISIT Medication Check. HISTORY OF PRESENT ILLNESS Maria Alejandra Gomez is a 33 y.o. female who presents to the clinic today for a medication check. Patient report she has been feeling down, especially in the last week. [facility] Patient has felt more irritable at home and states her family is often at each other's throats. She reports being easily triggered by small things that eventually leads to yelling. She also reports her medication has been making her feel nauseous. When she doesn't take her medication she will feel dizzy for 2-3 days. Patient feels her anxiety is well managed with Buspar, but would be interested in trying a different medication. Patient reports she is tired all the time. She is also very frustrated about her weight. She was previously on phentermine and was originally doing well on it, but then started to develop migraines. Patient tried phentermine for a second time, a few years ago, and felt it gave her energy but did not suppress her appetite. She is asking how she can manage her medications after she moves. Additionally, patient would like her ears and throat checked today. She has had a sore throat and cough for about a week. She will often cough up mucus in the morning. There are no further concerns at this time. MEDICATIONS Current Outpatient Prescriptions Medication Sig Dispense Refill ??? busPIRone (for_BUSPAR) 15 mg tablet BuSpar Dividose 15 mg oral tablet See Instructions, 1 tab(s)PO 2xDay and may take 1 additional tab as needed for increased anxiety, 90 tab(s), 4 Refill(s) ??? Misc Prescription (Allergy Immunotherapy) Misc Prescription Cocunut oil 1000mg tablet daily ??? naproxen (NAPROSYN) 250 mg tablet Take 1 tablet (250 mg total) by mouth 2 (two) times a day as needed for pain. Take with food. 90 tablet 3 ??? phentermine 37.5 mg capsule Take 1 capsule by mouth daily. ??? valACYclovir (VALTREX) 1000 mg tablet TAKE ONE TABLET BY MOUTH ONCE DAILY FOR 5 DAYS 15 tablet 1 ??? venlafaxine XR (EFFEXOR XR) 150 mg 24 hr capsule Take 1 capsule by mouth daily. ??? venlafaxine XR (EFFEXOR XR) 75 mg 24 hr capsule Take 1 capsule by mouth daily. ??? zolpidem (AMBIEN) 10 mg tablet Take 1 tablet (10 mg total) by mouth at bedtime. 24 tablet 1 No current facility-administered medications for this visit. ALLERGIES Allergies Allergen Reactions ??? Adhesive Tape-Silicones Rash ??? House Dust Mite Rash PAST MEDICAL / SURGICAL HISTORY Past Medical History: Diagnosis Date ??? Depression Major ??? Morbid Obesity Body Mass Index Greater Than Or Equal To 40 Adult (HCC) Past Surgical History: Procedure Laterality Date ??? BILATERAL TUBAL LIGATION N/A 12/01/2016 Bilateral tubal ligation ??? SECTION N/A 07/02/2005 section ??? SECTION N/A 02/19/2011 delivery only;.. ??? SECTION N/A 05/09/2013 delivery only;.. ??? SECTION N/A 12/01/2016 section ??? CHOLECYSTECTOMY N/A 11/29/2005 Cholecystectomy ??? LAPAROTOMY EXPLORATORY N/A 2009 Laparotomy - peritoneal adhesion divided ??? TONSILLECTOMY AND ADENOIDECTOMY N/A 1995 Tonsillectomy and adenoidectomy VITAL SIGNS BP 118/84 (BP Location: Right arm, Patient Position: Sitting, Cuff Size: Large) Pulse 68 Ht 167.5 cm Comment: with shoes Wt 136 kg Comment: with shoes LMP 06/08/2017 BMI 48.47 kg/m?? PHYSICAL EXAMINATION GENERAL: Alert, oriented, obese female. Non distressed. SKIN: Intact. No rash or lesion on the exposed skin. No ecchymosis. ENT: TMs are clear, normal light reflex and no effusion. Oropharynx shows mucous membranes are moistand pink. Tonsils are not hypertrophic. LYMPH: No lymphadenopathy. HEART: Regular rate and rhythm. Normal S1 and S2. No murmur or bruit. LUNGS: Clear. No wheezes or crackles. Normal inspiratory to expiratory ratio. EXTREMITIES: Normal range of motion of all extremities. No edema. MENTAL: Appropriate mood and affect. Normal judgement and insight. PHQ-9: 15. NEURO: Cranial nerves II-XII grossly intact. No focal deficit. IMPRESSION / REPORT / PLAN 1. Depression with Anxiety: currently having side effects to Effexor Plan: Wean off Effexor XR 75 mg daily for 7 days, then 37.5 mg daily for 7 days. Start Prozac 20 mg daily this week. She can send a message to me through the portal if she needs to increase the dose. 2. Morbid Obesity Plan: Phentermine 37.5 mg daily. She is given a 6 week supply. Work on increasing water as well as daily exercise to help with weight loss. In addition she is going to send me a message with a blood pressure check in 6 weeks for refills. At that time she will let me know the location of her new pharmacy. 3. Upper Respiratory Infection Plan: I recommended her to take over the counter medications. Symptomatic cares. Followup with me through portal next week if not improving. Total of 35 minutes spent with patient with 30 minutes devoted to counselling and coordination of care. This document serves as a record of services personally performed by Annemarie Montiel MD. It was created on their behalf by Karen huertas trained biomedical photographer. The creation of this record is based on the scribe's personal observations and the provider's statements to them. This document has been checked and approved by the attending provider. documented in this encounter Plan of Treatment Upcoming Encounters Date Type Specialty Care Team Description 08/17/2022 Procedure visit Neurology Marina Winter M.D., M.P.H. [address] [place], [place] [phone] (Wo rk) Scheduled Procedures Name Priority Associated Diagnoses Date/Time LIFT THIGH Excessive And Redundant Skin And Subcutaneous Tissue documented as of this encounter Visit Diagnoses Diagnosis Depression Major Recurrent (HCC) - Prima ry Anxiety Generalized Disorder Morbid Obesity Body Mass Index Greater T rivas Or Equal To 40 Adult (HCC) Infection Upper Respiratory documented in this encounter Additional Health Concerns Assessment Noted Time PHQ-9 Depression Total Score: 15 03/27/2018 5:04 PM CD T documented as of this encounter Care Teams Makeup Editor Relationship Specialty Start Date End Date Annemarie Montiel M.D. PCP - General 04/19/17 [address] [place] [address] documented as of this encounter
--- OUTSIDE RECORDS SUMMARY | 2022-07-24 15:13 | XMS_ITS | Encounter Summary ---
:1985 Author Organization [facility] Address [address] [place] [address] Care Team Providers Name Role Phone Annemarie Montiel M.D. Primary Care Provider [phone] Encounter Details Date Type Department Care Team Description 11/20/2018 Hospital Encounter Department of Annemarie Montiel For Venereal Disease; Laboratory Medicine Ella Zuniga Surgery Bariatric Status Post in [facility] [place], [place] [address] [address] [place], [place] [phone] [address] (Work) [phone] Social History Tobacco Use Types Packs/Day Years [...] 03/29/2020 relatives? How often do you attend confucianist or confucianist Never 07/04/2019 services? 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 Surgery Bariatric Status Post Misc Prescription Misc Prescription 0 07/17/2017 12/16/2019 (Allergy Immunotherapy) Cocunut oil 1000mg tablet daily venlafaxine (EFFEXOR) 75 Take 1.5 tablets 60 tablet 3 11/2001/16/2019 mg tabletIndications: (112.5 mg total) by Depression Major mouth 2 (two) times a Recurrent (HCC), Anxiety day with meals. Generalized Disorder zolpidem (AMBIEN) 10 mg Take 1 tablet (10 mg 24 tablet 1 01/16/2019 tablet total) by mouth at bedtime. documented as of this encounter Progress Notes Annemarie Montiel M.D. - 11/20/2018 11:59 PM CST Hi Maria Alejandra-- Screening for the sexually transmitted infection is negative. The potassium level is still running low, so I do want you to start a potassium tab daily--10 mEq daily Which I will send to your pharmacy. Plan to repeat the testing when I see you again in a couple months. Nicki Montiel MD Department of Family Medicine [facility] ATTENDANT documented in this encounter Plan of Treatment Upcoming Encounters Date Type Specialty Care Team Description 08/17/2022 Procedure visit Neurology Marina Winter M.D., M.P.H. [address] [place] [phone] (Wo rk) Scheduled Procedures Name Priority Associated Diagnoses Date/Time LIFT THIGH Excessive And Redundant Skin And Subcutaneous Tissue documented as of this encounter Procedures Procedure Name Priority Date/Time Associated Diagnosis Comme nts HIV-1 P24 AG, Routine 11/20/2018 4:58 PM Screening For Results for this HIV-1/2 AB SCRN, P KEY ATTENDANT Venereal Disease proce dure are in the results section. SYPHILIS TOTAL AB Routine 11/20/2018 4:58 PM Screening For Res ults for this W/ REFLEX S KEY ATTENDANT Venereal Disease procedure a re in the results section. CBC WITHOUT Routine 11/20/2018 4:58 PM Surgery Bariatric Resu lts for this DIFFERENTIAL, B KEY ATTENDANT Status Post procedure ar e in the results section. POTASSIUM, S/P Routine 11/20/2018 4:58 PM Surgery Bariatric Re sults for this KEY ATTENDANT Status Post procedure are i n the results section. VITAMIN B12 ASSAY, Routine 11/20/2018 4:58 PM Surgery Bariatri c Results for this S KEY ATTENDANT Status Post procedure are i n the results section. documented in this encounter Results HIV-1 p24 Ag, HIV-1/2 Ab Scrn, P (11/20/2018 4:58 PM KEY ATTENDANT) athologist Signature HIV Ag/Ab Negative Negative 11/25/2018 [facility] Screen, P 7:50 AM [facility] [employer] Comment: Negative result does not rule out HIV in fection. If exposure to HIV infection occurred <14 d ays ago, contact the laboratory to request additi on of HIV-1 RNA detection / quantification test. HIV-1 p24 Ag Screen, Negative Negative 11/25/2018 7:50 AM [facility]- [facility] Comment: Negative result does not rule out HIV in fection. If exposure to HIV infection occurred <14 d ays ago, contact the laboratory to request additi on of HIV-1 RNA detection / quantification test. HIV-1 Ab Screen, P Negative Negative 11/25/2018 7:50 AM [facility] Comment: Negative result does not rule out HIV in fection. If exposure to HIV infection occurred <14 d ays ago, contact the laboratory to request additi on of HIV-1 RNA detection / quantification test. HIV-2 Ab Screen, P Negative Negative 11/25/2018 7:50 AM [facility] Comment: Negative result does not rule out HIV in fection. If exposure to HIV infection occurred <14 d ays ago, contact the laboratory to request additi on of HIV-1 RNA detection / quantification test. Specimen Anatomical Collection Method Collection Time Receive d Time (Source) Location / / Volume Laterality Blood (Blood, 11/20/2018 4:58 PM 11/21/19 19 Venous) KEY ATTENDANT 11:33 AM KEY ATTENDANT Annemarie Montiel M.D. LAB MICROBIOLOGY - BLOOD ORD ERABLES Performing Organization Address City/State/ZIP Code Phon e Number [facility]- [address] [place] [address], [place] [address] [place] [facility] (ABNORMAL) Potassium (11/20/2018 4:58 PM KEY ATTENDANT) athologist Signature Potassium, S 3.4 (L) 3.6 - 5.2 11/20/2018 [facility] mmol/L 5:59 PM [facility] Specimen Anatomical Collection Method Collection Time Receive d Time (Source) Location / / Volume Laterality Blood (Blood, 11/20/2018 4:58 PM 11/20/19 19 5:00 Venous) KEY ATTENDANT PM KEY ATTENDANT Annemarie Montiel M.D. LAB BLOOD ADD-ON Performing Organization Address City/State/ZIP Code Phon e Number [facility] [address] [place] [id number] LAB CBC without Differential (11/20/2018 4:58 PM KEY ATTENDANT) athologist Signature Hemoglobin 12.7 11.6 - 11/20/2018 [facility] 15.0 g/dL 5:02 PM [facility] LAB Hematocrit 38.5 35.5 - 11/20/2018 [facility] 44.9 % 5:02 PM [facility] Erythrocytes 4.34 3.92 - 11/20/2018 [facility] 5.13 5:02 PM [facility] x10(12)/L SYSTEM [employer] LAB MCV 88.7 78.2 - 11/20/2018 [facility] 97.9 fL 5:02 PM [facility] RBC Distrib Width 13.8 12.2 - 11/20/2018 [facility] 16.1 % 5:02 PM [facility] Platelet Count 329 157 - 371 11/20/2018 [facility] x10(9)/L 5:02 PM [facility] [employer] LAB Leukocytes 7.6 3.4 - 9.6 11/20/2018 [facility] x10(9)/L 5:02 PM KEY ATTENDANT [facility] LAB Specimen Anatomical Collection Method Collection Time Receive d Time (Source) Location / / Volume Laterality Blood (Blood, 11/20/2018 4:58 PM 11/20/19 19 5:00 Venous) KEY ATTENDANT PM KEY ATTENDANT Annemarie Montiel M.D. LAB BLOOD ADD-ON Performing Organization Address City/State/ZIP Code Phon e Number [facility] [address] [place] [address] LAB Vitamin B12 Assay (11/20/2018 4:58 PM KEY ATTENDANT) athologist Signature Vitamin B12 [phone] 1240 11/20/2018 [facility] Assay, S ng/L 9:44 PM KEY ATTENDANT [facility] Comment: Biotin has been identified by the isidra oneal as a potential interfering substance. ??Higher concentr ations of biotin may be found in multivitamins, hair/nail supple ments, and workout supplements. ??If the result does not [facility] clinical observations, repeat testing after patient refrains fr om the use of supplements for at least 12 hours. Specimen Anatomical Collection Method Collection Time Receive d Time (Source) Location / / Volume Laterality Blood (Blood, 11/20/2018 4:58 PM 11/20/19 19 9:05 Venous) KEY ATTENDANT PM KEY ATTENDANT Annemarie Montiel M.D. LAB BLOOD ADD-ON Performing Organization Address City/[facility]/ZIP Code Phon e Number [facility]- [address] [place] [address] [place] [facility] Syphilis IgG Antibody with Reflex (11/20/2018 4:58 PM KEY ATTENDANT) athologist Signature Syphilis IgG Negative Negative 11/22/2018 [facility] Ab, S 12:20 PM KEY ATTENDANT [facility] Comment: No serologic evidence of exposu re to syphilis. Specimen Anatomical Collection Method Collection Time Receive d Time (Source) Location / / Volume Laterality Blood (Blood, 11/20/2018 4:58 PM 11/21/19 19 Venous) KEY ATTENDANT 11:33 AM KEY ATTENDANT Annemarie Montiel M.D. LAB BLOOD ADD-ON Performing Organization Address City/State/ZIP Code Phon e Number [facility]- [address] [facility] [place], [place] [address] [place] [facility] documented in this encounter Visit Diagnoses Diagnosis Screening For Venereal Disease Surgery Bariatric Status Post documented in this encounter Additional Health Concerns Assessment Noted Time PHQ-9 Depression Total Score: 18 11/01/2018 8:11 AM CS T documented as of this encounter Care Teams Food Assembler Kitchen Relationship Specialty Start Date End Date Annemarie Montiel M.D. PCP - General 04/19/[address] [phone] documented as of this encounter
--- OUTSIDE RECORDS SUMMARY | 2022-07-24 15:13 | XMS_ITS | Encounter Summary ---
:1985 Author Organization [facility] Address [address] [place] [address] Care Team Providers Name Role Phone Annemarie Montiel M.D. Primary Care Provider [phone] Reason for Referral Outpatient (Routine) - Closed Specialty Diagnoses / Procedures Referred By Contact Refer red To Contact Family Annemarie Toure M.D. [facility] Region [address] [place] [address] Referral ID Status Reason Start Date Expiration Date Visits Requ ested Visits Authorized [id number] Closed 11/20/2018 11/20/2019 1 1 RRAL CLERK Reason for Visit Reason Comments Follow-up 1 month medication Appointment Request (Routine) - Closed Specialty Diagnoses / Procedures Referred By Contact Refer red To Contact Family Medicine Referral ID Status Reason Start Date Expiration Date Visits Requ ested Visits Authorized [id number] Closed 10/16/2018 10/16/2019 1 Encounter Details Date Type Department Care Team Description 11/20/2018 Office Visit Department of Annemarie Song, Surgery Bariatric Status Post (Primary Dx); Porfirio Valdes M.D. Depression Major Recurrent (HCC); Clinic, in [facility] [address] Anxiety Generalized Disorder; [place], [place] Screening For Venereal Disea se [address] [address] [place], [place] [phone] (Wo rk) [address] [phone] Social History Tobacco Use Types Packs/Day Years [...] 03/29/2020 relatives? How often do you attend latter-day or uatsdin Never 07/04/2019 services? Do you belong to any clubs or organizations such as No 07/04/2019 latter-day groups, unions, fraternal or athletic groups, or [...] at Date Recorded Female 10/16/2018 10:53 AM REFERRAL CLERK documented as of this encounter Last Filed Vital Signs Vital Sign Reading Time Taken Comments Blood Pressure 118/78 11/20/2018 3:58 PM REFERRAL CLERK Pulse 72 11/20/2018 3:58 PM REFERRAL CLERK Temperature 36.1 ??C (97 ??F) 11/20/2018 3:58 PM REFERRAL CLERK Respiratory Rate - - Oxygen Saturation - - Inhaled Oxygen Concentration - - Weight 100 kg (220 lb 7.4 oz) 11/20/2018 3:58 PM REFERRAL CLERK Height - - Body Mass Index 35.64 10/31/2018 8:59 AM REFERRAL CLERK documented in this encounter Progress Notes Annemarie Montiel M.D. - 11/20/2018 4:00 PM CST SUBJECTIVE CHIEF COMPLAINT / REASON FOR VISIT Medication review. HISTORY OF PRESENT ILLNESS Maria Alejandra Gomez is a 33 y.o. female who presents to the clinic today for a medication review. I last saw the patient on 10/16/2018; please see that note for further details. At that time she did not feel her generalized anxiety disorder and depression were not optimally controlled and she was started on a trial of Effexor 75 mg by mouth twice daily. Today she reports that she has noticed improvement on the Effexor. It is noted that she has only been taking this medication once daily. She feels that she would benefit from increasing her Effexor dose as she is more irritable in the evening. It is noted that she is status-post bariatric surgery [gastric sleeve 08/2018 while in [place]] andwas overdue for follow-up. Vitamin D, BMP, TSH, Vitamin B12, Ferritin, CBC, and Magnesium labs we performed at our last appointment; these are reviewed today. Maria Alejandra is interested in having these repeated again today to ensure that her vitamins are where they should be. Prior to our last visit she had low potassium that was replaced and returned within normal limits. She is also on sublingual B12 and is due for follow-up. The patient has contacted Bariatric Surgery in [place] and has an appointment scheduled. Furthermore; the patient would like to have a baseline STD testing performed today. She denies any symptoms but has had new partner and would like to have testing. There are no further concerns at thistime. CURRENT MEDICATIONS Current Outpatient Prescriptions Medication Sig Dispense Refill ??? cyanocobalamin (VITAMIN B12) 500 mcg SL tablet Take 2 tablets (1,000 mcg total) by mouth daily. 60 each 11 ??? venlafaxine (EFFEXOR) 75 mg tablet Half Tab PO twice daily for 1 week and then 1 tab PO twice daily 60 tablet 3 ??? zolpidem (AMBIEN) 10 mg tablet Take 1 tablet (10 mg total) by mouth at bedtime. 24 tablet 1 ??? Misc Prescription (Allergy Immunotherapy) Misc Prescription Cocunut oil 1000mg tablet daily ??? valACYclovir (VALTREX) 1000 mg tablet TAKE ONE TABLET BY MOUTH ONCE DAILY FOR 5 DAYS (Patient not taking: Reported on 10/16/2018) 15 tablet 1 No current facility-administered medications for this visit. ALLERGIES/CONTRAINDICATIONS Allergies Allergen Reactions ??? Adhesive Tape-Silicones Rash ??? House Dust Mite Rash MEDICAL HISTORY Past Medical History: Diagnosis Date ??? Anxiety Generalized Disorder ??? Concussion Loss Of Conciousness Unspecified Duration Initial ??? Depression Major ??? Gallbladder Disorder ??? Headache ??? Hypertension NOS ??? Migraine Headache ??? Morbid Obesity Body Mass Index Greater Than Or Equal To 40 Adult (HCC) SURGICAL HISTORY Past Surgical History: Procedure Laterality Date ??? BARIATRIC SURGERY ??? BILATERAL TUBAL LIGATION N/A 12/01/2016 Bilateral tubal ligation ??? SECTION N/A 07/02/2005 section ??? SECTION N/A 02/19/2011 delivery only;.. ??? SECTION N/A 05/09/2013 delivery only;.. ??? SECTION N/A 12/01/2016 section ??? SECTION ??? CHOLECYSTECTOMY N/A 11/29/2005 Cholecystectomy ??? GALLBLADDER SURGERY ??? LAPAROTOMY EXPLORATORY N/A 2009 Laparotomy - peritoneal adhesion divided ??? TONSILLECTOMY ??? TONSILLECTOMY AND ADENOIDECTOMY N/A 1995 Tonsillectomy and adenoidectomy OBJECTIVE VITAL SIGNS Vitals: 11/20/18 1558 BP: 118/78 Patient Position: Sitting Pulse: 72 Temp: 36.1 ??C Weight: 100 kg TempSrc: Temporal Body mass index is 35.64 kg/m??. PHYSICAL EXAMINATION General: Alert, oriented female, well developed and well nourished. Non distressed. Mental: Appropriate mood and affect. Normal judgement and insight. Neuro: Cranial nerves II-XII grossly intact. No focal deficit. ASSESSMENT / PLAN #1. Generalized anxiety disorder and major depressive disorder; not optimally controlled. PLAN: Patient will increase Effexor 75 mg by mouth to twice daily. Urged her to takes this medication twice daily especially given that she is status-post bariatric surgery and extended release will not work for her. After 4 weeks of consistent dosing, she may increase Effexor to 112.5 mg by mouth twice daily. Reviewed the way this medication works and possible side effects. Follow-up in 2 months. Notify me with any questions or concerns. ?? #2. Status-post bariatric surgery [gastric sleeve 08/2018 while in [place]]; overdue for follow-up. PLAN: I suspect she has a vitamin or electrolyte deficiency leading to her paresthesias. Vitamin B12, CBC, and Potassium labs are repeated today with results pending. The patient will be notified of the results when available. Maria Alejandra will continue to work with our registered nursing professor and has an appoi ntment on the books to establish with Bariatric Surgery in [place]. ?? #3. Screening for veneral disease. PLAN: The following labs are ordered today: - Syphilis IgG Antibody with Reflex; Future - HIV-1 p24 Ag, HIV-1/2 Ab Scrn, P; Future - Chlamydia / Gonorrhoeae Amplified RNA; Future The patient will be notified of the results when available and provided with further recommendationsat that time. ADMINISTRATIVE BILLING 25 minutes of this 30 minute visit was spent in face to face counseling and coordination of care. This document serves as a record of services personally performed by Annemarie Montiel MD. It was created on their behalf by Lidia huertas trained medical specialist. The creation of this record is basedon the scribe's personal observations and the provider's statements to them. This document has been c hecked and approved by the attending provider. RRAL CLERK documented in this encounter Plan of Treatment Upcoming Encounters Date Type Specialty Care Team Description 08/17/2022 Procedure visit Neurology Marina Winter M.D., M.P.H. [address] [phone] (Wo rk) Scheduled Procedures Name Priority Associated Diagnoses Date/Time LIFT THIGH Excessive And Redundant Skin And Subcutaneous Tissue Scheduled Referrals Name Type Priority Associated Diagnoses Order S [facility] Family Medicine Outpatient Referral Routine Expec heaven: office visit 01/18/2019 (clinic) (Approximate), Expires: 11/20/2021 documented as of this encounter Procedures Procedure Name Priority Date/Time Associated Diagnosis Comme nts CHLAMYDIA/GONORRHOE Routine 11/20/2018 4:57 PM Screening For R esults for this AE AMPLIFIED RNA REFERRAL CLERK Venereal Disease procedu re are in the results section. documented in this encounter Results HIV-1 p24 Ag, HIV-1/2 Ab Scrn, P (11/20/2018 4:58 PM REFERRAL CLERK) P athologist Signature HIV Ag/Ab Negative Negative 11/25/2018 [facility] Screen, P 7:50 AM REFERRAL CLERK [facility] Comment: Negative result does not rule out HIV in fection. If exposure to HIV infection occurred <14 d ays ago, contact the laboratory to request additi on of HIV-1 RNA detection / quantification test. HIV-1 p24 Ag Screen, Negative Negative 11/25/2018 7:50 AM REFERRAL CLERK [facility] Comment: Negative result does not rule out HIV in fection. If exposure to HIV infection occurred <14 d ays ago, contact the laboratory to request additi on of HIV-1 RNA detection / quantification test. HIV-1 Ab Screen, P Negative Negative 11/25/2018 7:50 AM [facility] Comment: Negative result does not rule out HIV in fection. If exposure to HIV infection occurred <14 d ays ago, contact the laboratory to request additi on of HIV-1 RNA detection / quantification test. HIV-2 Ab Screen, P Negative Negative 11/25/2018 7:50 AM [facility] Comment: Negative result does not rule out HIV in fection. If exposure to HIV infection occurred <14 d ays ago, contact the laboratory to request additi on of HIV-1 RNA detection / quantification test. Specimen Anatomical Collection Method Collection Time Receive d Time (Source) Location / / Volume Laterality Blood (Blood, 11/20/2018 4:58 PM 11/21/19 Venous) REFERRAL CLERK 11:33 AM REFERRAL CLERK Annemarie Montiel M.D. LAB MICROBIOLOGY - BLOOD ORD ERABLES Performing Organization Address City/State/ZIP Code Phon e Number [facility]- [address] [place] [phone] [facility] (ABNORMAL) Potassium (11/20/2018 4:58 PM REFERRAL CLERK) athologist Signature Potassium, S 3.4 (L) 3.6 - 5.2 11/20/2018 [facility] mmol/L 5:[address] [facility] Specimen Anatomical Collection Method Collection Time Receive d Time (Source) Location / / Volume Laterality Blood (Blood, 11/20/2018 4:58 PM 11/20/19 5:00 Venous) REFERRAL CLERK PM REFERRAL CLERK Annemarie Montiel M.D. LAB BLOOD ADD-ON Performing Organization Address City/State/ZIP Code Phon e Number [facility] [address] [place] [address] LAB CBC without Differential (11/20/2018 4:58 PM REFERRAL CLERK) athologist Signature Hemoglobin 12.7 11.6 - 11/20/2018 [facility] 15.0 g/dL 5:[address] [facility] Hematocrit 38.5 35.5 - 11/20/2018 [facility] 44.9 % 5:[address] [facility] Erythrocytes 4.34 3.92 - 11/20/2018 [facility] 5.13 5:02 PM [facility] x10(12)/L [facility] MCV 88.7 78.2 - 11/20/2018 [facility] 97.9 fL 5:[address] [facility] RBC Distrib Width 13.8 12.2 - 11/20/2018 [facility] 16.1 % 5:[address] [facility] Platelet Count 329 157 - 371 11/20/2018 [facility] x10(9)/L 5:[address] [facility] Leukocytes 7.6 3.4 - 9.6 11/20/2018 [facility] x10(9)/L 5:[address] [facility] Specimen Anatomical Collection Method Collection Time Receive d Time (Source) Location / / Volume Laterality Blood (Blood, 11/20/2018 4:58 PM 11/20/19 19 5:00 Venous) REFERRAL CLERK PM REFERRAL CLERK Annemarie Montiel M.D. LAB BLOOD ADD-ON Performing Organization Address City/State/ZIP Code Phon e Number [facility] [address] [place] [address] LAB Vitamin B12 Assay (11/20/2018 4:58 PM [facility]) P athologist Signature Vitamin B12 193 628 - 6949 11/20/2018 [facility] Assay, S ng/L 9:44 PM [facility] Comment: Biotin has been identified by the isidra oneal as a potential interfering substance. ??Higher concentr ations of biotin may be found in multivitamins, hair/nail supple ments, and workout supplements. ??If the result does not [facility] clinical observations, repeat testing after patient refrains fr om the use of supplements for at least 12 hours. Specimen Anatomical Collection Method Collection Time Receive d Time (Source) Location / / Volume Laterality Blood (Blood, 11/20/2018 4:58 PM 11/20/19 19 9:05 Venous) REFERRAL CLERK PM REFERRAL CLERK Annemarie Montiel M.D. LAB BLOOD ADD-ON Performing Organization Address City/State/ZIP Code Phon e Number [facility]- [address] [place] [address] HOSPERS LAB Syphilis IgG Antibody with Reflex (11/20/2018 4:58 PM REFERRAL CLERK) P athologist Signature Syphilis IgG Negative Negative 11/22/2018 [facility] Ab, S 12:20 PM [facility] Comment: No serologic evidence of exposu re to syphilis. Specimen Anatomical Collection Method Collection Time Receive d Time (Source) Location / / Volume Laterality Blood (Blood, 11/20/2018 4:58 PM 11/21/19 19 Venous) REFERRAL CLERK 11:33 AM REFERRAL CLERK Annemarie Montiel M.D. LAB BLOOD ADD-ON Performing Organization Address City/State/ZIP Code Phon e Number [facility]- [address] [place], [place] [address] [place] [facility] Chlamydia / Gonorrhoeae Amplified RNA (11/20/2018 4:57 PM REFERRAL CLERK) [facility] gist Method Time Signature Source URINE, FIRST 11/21/2018 [facility] VOID 11:52 AM [facility] Chlamydia Negative Negative 11/21/2018 [facility] trachomatis 11:52 AM [facility]ity [facility] Comment: ----ADDITIONAL INFORMATION---- This report is intended for use in clini lori monitoring and management of patients. It is not in tended for use in medical-legal applications. Source URINE, FIRST VOID 11/21/2018 11:52 AM [facility] Neisseria Negative Negative 11/21/2018 11:52 AM [facility] C gonorrhoeae [facility]- amplified RNA [facility] Comment: ----ADDITIONAL INFORMATION---- This report is intended for use in clini lori monitoring and management of patients. It is not in tended for use in medical-legal applications. Specimen Anatomical Collection Method Collection Time Receive d Time (Source) Location / / Volume Laterality Varies 11/20/2018 4:57 PM 9 7:14 (Cervix/Endocerv REFERRAL CLERK PM REFERRAL CLERK ix) Annemarie Montiel M.D. LAB MICROBIOLOGY - GENERAL O CLARISSA Performing Organization Address City/State/ZIP Code Phon e Number [facility] [address] [place] [address] LAB documented in this encounter Visit Diagnoses Diagnosis Surgery Bariatric Status Post - Primary Depression Major Recurrent (HCC) Anxiety Generalized Disorder Screening For Venereal Disease documented in this encounter Additional Health Concerns Assessment Noted Time PHQ-9 Depression Total Score: 18 11/01/2018 8:11 AM CS T documented as of this encounter Care Teams Machine Room Operator Relationship Specialty Start Date End Date Annemarie Montiel M.D. PCP - General 04/19/17 [address] [address] documented as of this encounter
--- OUTSIDE RECORDS SUMMARY | 2022-07-24 15:13 | XMS_ITS | Encounter Summary ---
:1985 Author Organization [facility] Address [address] [place] [address] Care Team Providers Name Role Phone Annemarie Montiel M.D. Primary Care Provider [phone] Reason for Referral Specialty Diagnoses / Procedures Referred By Contact Refer red To Contact Annemarie Montiel M.D. [facility] Region [address] [place] [address] Referral ID Status Reason Start Date Expiration Date Visits Requ ested Visits Authorized Scheduling Instructions Maria Elena Monroy LT OPERATOR Reason for Visit Reason Comments Med Refill Appointment Request (Routine) - Closed Specialty Diagnoses / Procedures Referred By Contact Refer red To Contact Family Medicine Referral ID Status Reason Start Date Expiration Date Visits Requ ested Visits Authorized [id number] Closed 09/09/2018 09/09/2019 1 Encounter Details Date Type Department Care Team Description 10/16/2018 Office Visit Department of Annemarie Song Depression Major Recurrent (HCC) (Primary Dx); MedicinePorfirio M.D. Anxiety Generalized Disorder; Clinic, in [place], [address] Surgery Bariatric Status [address] [place], [place] [address] [address] [place], [place] [phone] (Wo rk) [address] [phone] Social History Tobacco Use Types Packs/Day Years [...] How often do you attend hinduism or muslim Never 07/04/2019 services? 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 - 10/16/2018 11:15 AM CST Labs today are for Vitamin levels and electrolytes, iron--some patients need shots of B12 I will have results in 3-4 days Set up Diesel Engine I Pipe Fitter Appt LT OPERATOR documented in this encounter Progress Notes Annemarie Montiel M.D. - 10/16/2018 11:15 AM CST SUBJECTIVE CHIEF COMPLAINT / REASON FOR VISIT Medication review. HISTORY OF PRESENT ILLNESS Maria Alejandra Gomez is a 33 y.o. female who presents to the clinic today for a medication review. I last saw the patient on 03/27/2018 when she was about to move to [place]. The patient wanted to return closer to her family and has moved back to [place]. It is noted that she has been struggling and under a lot of stress lately. ,Maria Alejandra reports that upon returning from [place] she has been from her significant other and also stopped talking to her best friend due to her issues. She has not been taking her depression/anxiety medications because she has not had any prescriptions. The patient also would like to have a note for an emotional support animal given that her current place of living does not allow animals. In August 2018 while she was in [place] she underwent a bariatric surgery which went well but she has been struggling with. Her weight is down 60 lbs but she struggles to eat now. Any amount of food makes her feel extremely full. It was recommended 70 grams of protein daily and no more than 30 gramsof carbs. Her difficulty eating as been leading to her feeling more down and depressed. It is noted that she had zero follow-up appointments with Bariatric surgery in [place]. Furthermore; she has been experiencing a cough and congestion lately. There have been family memebers ill at home. There are no further concerns at this time. REVIEW OF SYSTEMS Answers for HPI/ROS submitted by the patient [...] blood/lymph issues: Yes No urinary/reproductive issues: Yes CURRENT MEDICATIONS Current Outpatient Prescriptions Medication Sig Dispense Refill ??? busPIRone (BUSPAR) 15 mg tablet Take 1 tablet (15 mg total) by mouth 2 (two) times a day. May take 1 additional tab as needed for increased anxiety 90 tablet 5 ??? fluconazole (DIFLUCAN) 150 mg tablet TAKE ONE TABLET BY MOUTH NOW AND THEN 1 TABLET BY MOUTH IN 3 DAYS IF SYMPTOMS NOT RESOLVED 2 tablet 0 ??? FLUoxetine (PROzac) 40 mg capsule Take 1 capsule (40 mg total) by mouth daily. 90 capsule 3 ??? zolpidem (AMBIEN) 10 mg tablet Take 1 tablet (10 mg total) by mouth at bedtime. 24 tablet 1 ??? Misc Prescription (Allergy Immunotherapy) Misc Prescription Cocunut oil 1000mg tablet daily ??? naproxen (NAPROSYN) 250 mg tablet Take 1 tablet (250 mg total) by mouth 2 (two) times a day as needed for pain. Take with food. (Patient not taking: Reported on 10/16/2018 ) 90 tablet 3 ??? phentermine 37.5 mg capsule Take 1 capsule (37.5 mg total) by mouth daily. (Patient not taking: Reported on 10/16/2018 ) 42 capsule 0 ??? valACYclovir (VALTREX) 1000 mg tablet TAKE ONE TABLET BY MOUTH ONCE DAILY FOR 5 DAYS (Patient not taking: Reported on 10/16/2018) 15 tablet 1 ??? venlafaxine XR (EFFEXOR XR) 75 mg 24 hr capsule Take 1 capsule (75 mg total) by mouth daily. For7 days and then go to the 37.5 mg daily (Patient not taking: Reported on 10/16/2018 ) 7 capsule 0 ??? venlafaxine XR (EFFEXOR-XR) 37.5 mg 24 hr capsule Take 1 capsule (37.5 mg total) by mouth daily.For 7 days and then discontinue (Patient not taking: Reported on 10/16/2018 ) 7 capsule 0 No current facility-administered medications for this visit. [...] Tonsillectomy and adenoidectomy OBJECTIVE VITAL SIGNS Vitals: 10/16/18 1107 BP: 128/70 Patient Position: Sitting Pulse: 68 Temp: 36.3 ??C Weight: 105.6 kg TempSrc: Temporal Body mass index is 37.64 kg/m??. PHYSICAL EXAMINATION General: Alert, obese, oriented female, well developed and well nourished. Non distressed. Skin: Intact. No rash or lesion. No ecchymosis. Heart: Regular rate and rhythm. Normal S1 and S2. No murmur or bruit. Lungs: Clear. No wheezes or crackles. Normal inspiratory to expiratory ratio. Mental: Pleasant and appropriate mood with bright affect, but describes depressive and anxious thoughts. Normal judgement and insight. Neuro: Cranial nerves II-XII grossly intact. No focal deficit. DTRs are 3+ and brisk in the lower extremities. No clonus. ASSESSMENT / PLAN #1. Generalized anxiety disorder and major depressive disorder; not optimally controlled. PLAN: Start Effexor 75 mg by mouth twice daily [she will titrate up by taking 1/2 tablet =37.5 mg bymouth twice daily for 1 week before increasing to 75 mg by mouth twice daily]. Reviewed the way thismedication works and possible side effects. Over time it may be beneficial to get her back into therapy to help with coping mechanisms. Encouraged her not to make any major life decisions until her depression is under better control. A note is provided for an emotional support animal. Notify me with any questions or concerns. #2. Status-post bariatric surgery [gastric sleeve 08/2018 while in [place]]; overdue for follow-up. PLAN: I suspect she has a vitamin or electrolyte deficiency leading to her paresthesias. Vitamin D, BMP, TSH, Vitamin B12, Ferritin, CBC, and Magnesium labs are ordered today with results pending. The patient will be notified of the results when available. Maria Alejandra is also given a referral to Dieticianfor further recommendations. Total time spent 25 minutes with 20 minutes counseling and coordination of care. This document serves as a record of services personally performed by Annemarie Montiel MD. It was created on their behalf by Lidia huertas trained medical professionals. The creation of this record is basedon the scribe's personal observations and the provider's statements to them. This document has been c hecked and approved by the attending provider. LT OPERATOR documented in this encounter Plan of Treatment Upcoming Encounters Date Type Specialty Care Team Description 08/17/2022 Procedure visit Neurology Marina Winter M.D., M.P.H. [address] [place], [place] [phone] (Wo rk) Scheduled Procedures Name Priority Associated Diagnoses Date/Time LIFT THIGH Excessive And Redundant Skin And Subcutaneous Tissue Scheduled Referrals Name Type Priority Associated Diagnoses Order S chedule Nutrition - Diet Outpatient Referral Routine Surgery Bariatric Expected: education visit Status Post 10/16/2018 (clinic) (Approximate), Expires: 10/16/2021 documented as of this encounter Results Magnesium (10/16/2018 12:52 PM REMELT OPERATOR) P athologist Signature Magnesium, S 1.7 1.7 - 2.3 10/16/2018 [facility] mg/dL 2:57 PM REMELT OPERATOR [facility] LAB Specimen Anatomical Collection Method Collection Time Receive d Time (Source) Location / / Volume Laterality Blood (Blood, 10/16/2018 12:52 10/16/2018 1:29 Venous) PM REMELT OPERATOR PM REMELT OPERATOR Annemarie Montiel M.D. LAB BLOOD ADD-ON Performing Organization Address City/State/ZIP Code Phon e Number [facility] [address] [place] [address] LAB CBC without Differential (10/16/2018 12:52 PM REMELT OPERATOR) athologist Signature Hemoglobin 14.0 11.6 - 10/16/2018 [facility] 15.0 g/dL 1:33 PM [facility] Hematocrit 41.2 35.5 - 10/16/2018 [facility] 44.9 % 1:33 PM [facility] Erythrocytes 4.72 3.92 - 10/16/2018 [facility] 5.13 1:33 PM [facility] x10(12)/L [facility] MCV 87.3 78.2 - 10/16/2018 [facility] 97.9 fL 1:33 PM [facility] RBC Distrib Width 14.3 12.2 - 10/16/2018 [facility] 16.1 % 1:33 PM [facility] Platelet Count 255 157 - 371 10/16/2018 [facility] x10(9)/L 1:33 PM [facility] Leukocytes 8.3 3.4 - 9.6 10/16/2018 [facility] x10(9)/L 1:33 PM [facility] Specimen Anatomical Collection Method Collection Time Receive d Time (Source) Location / / Volume Laterality Blood (Blood, 10/16/2018 12:52 10/16/2018 1:29 Venous) PM REMELT OPERATOR PM REMELT OPERATOR Annemarie Montiel M.D. LAB BLOOD ADD-ON Performing Organization Address City/State/ZIP Code Phon e Number [facility] [address] [place] [address] LAB Ferritin (10/16/2018 12:52 PM REMELT OPERATOR) athologist Signature Ferritin, S 116 13 - 150 10/16/2018 [facility] mcg/L 2:57 PM [facility] Comment: Biotin has been identified by the isidra oneal as a potential interfering substance. ??Higher concentr ations of biotin may be found in multivitamins, hair/nail supple ments, and workout supplements. ??If the result does not ma [facility] clinical observations, repeat testing after patient refrains fr om the use of supplements for at least 12 hours. Specimen Anatomical Collection Method Collection Time Receive d Time (Source) Location / / Volume Laterality Blood (Blood, 10/16/2018 12:52 10/16/2018 1:29 Venous) PM REMELT OPERATOR PM REMELT OPERATOR Annemarie Montiel M.D. LAB BLOOD ADD-ON Performing Organization Address City/[facility]/ZIP Code Phon e Number [facility] [address] [place] [address] LAB Vitamin B12 Assay (10/16/2018 12:52 PM REMELT OPERATOR) P athologist Signature Vitamin B12 [phone] 10/16/2018 [facility] Assay, S ng/L 4:57 PM REMELT OPERATOR [facility] LAB Comment: Biotin has been identified by the isidra oneal as a potential interfering substance. ??Higher concentr ations of biotin may be found in multivitamins, hair/nail supple ments, and workout supplements. ??If the result does not ma tch clinical observations, repeat testing after patient refrains fr om the use of supplements for at least 12 hours. Specimen Anatomical Collection Method Collection Time Receive d Time (Source) Location / / Volume Laterality Blood (Blood, 10/16/2018 12:52 10/16/2018 4:05 Venous) PM REMELT OPERATOR PM REMELT OPERATOR Annemarie Montiel M.D. LAB BLOOD ADD-ON Performing Organization Address City/[facility]/ZIP Code Phon e Number [facility] [address] [place] [address] [place] [facility] S-TSH (Thyroid-Stimulating Hormone - Sensitive) (10/16/2018 12:52 PM REMELT OPERATOR) P athologist Signature TSH, Sensitive 0.8 0.3 - 4.2 10/16/2018 [facility] mIU/L 2:57 PM REMELT OPERATOR [facility] LAB Comment: Biotin has been identified by the isidra oneal as a potential interfering substance. ??Higher concentr ations of biotin may be found in multivitamins, hair/nail supple ments, and workout supplements. ??If the result does not ma tch clinical observations, repeat testing after patient refrains fr om the use of supplements for at least 12 hours. Specimen Anatomical Collection Method Collection Time Receive d Time (Source) Location / / Volume Laterality Blood (Blood, 10/16/2018 12:52 10/16/2018 1:29 Venous) PM REMELT OPERATOR PM REMELT OPERATOR Annemarie Montiel M.D. LAB BLOOD ADD-ON Performing Organization Address City/State/ZIP Code Phon e Number [facility] [address] [place] [address] LAB (ABNORMAL) BMP (Basic Metabolic Panel) (10/16/2018 12:52 PM REMELT OPERATOR) Analysis Performed At Patho logist Time Signature Potassium, S 3.5 (L) 3.6 - 5.2 10/16/2018 [facility] mmol/L 2:57 PM [facility] Sodium, S 146 (H) 135 - 145 10/16/2018 [facility] mmol/L 2:57 PM [facility] Chloride, S 103 98 - 107 10/16/2018 [facility] mmol/L 2:57 PM [facility] Bicarbonate, S 29 22 - 29 10/16/2018 [facility] mmol/L 2:57 PM [facility] Anion Gap 14 7 - 15 10/16/2018 [facility] 2:57 PM [facility] BUN (Blood Urea 5 (L) 6 - 21 10/16/2018 [facility] Nitrogen), S mg/dL 2:57 PM [facility] Creatinine 0.47 (L) 0.59 - 10/16/2018 [facility] 1.04 mg/dL 2:57 PM [facility] eGFR-Non >90 >=60 10/16/2018 [facility] Black/ mL/min/BSA 2:57 PM [facility] LAB Comment: ----ADDITIONAL INFORMATION---- Estimated GFR calculated using the 2009 CKD_EPI creatinine equation. eGFR-Black/ >90 >=60 mL/min/BSA 2017 2:57 PM [facility] LAB Comment: ----ADDITIONAL INFORMATION---- Estimated GFR calculated using the 2009 CKD_EPI creatinine equation. Calcium, Total, S 9.4 8.6 - 10.0 mg/dL 10/16/2018 2 :57 PM [facility] Glucose, S 84 70 - 140 mg/dL 10/16/2018 2:57 PM REMELT OPERATOR M [facility] LAB Specimen Anatomical Collection Method Collection Time Receive d Time (Source) Location / / Volume Laterality Blood (Blood, 10/16/2018 12:52 10/16/2018 1:29 Venous) PM REMELT OPERATOR PM REMELT OPERATOR Annemarie Montiel M.D. LAB BLOOD ADD-ON Performing Organization Address City/State/ZIP Code Phon e Number [facility] [address] [place] [address] LAB 25-Hydroxyvitamin D2 and D3 (10/16/2018 12:52 PM REMELT OPERATOR) P athologist Signature 25-Hydroxy D2 <4.0 ng/mL 10/18/2018 [facility] 3:01 PM REMELT OPERATOR [address] [facility] 25-Hydroxy D3 33 ng/mL 10/18/2018 [facility] 3:01 PM REMELT OPERATOR [facility] 25-Hydroxy D 33 ng/mL 10/18/2018 [facility] Total 3:01 PM REMELT OPERATOR [address] [facility] Comment: ----REFERENCE VALUE---- 25-HYDROXY D TOTAL (D2+D3) Optimum level s in the healthy population are 20-50, patients with bone disease may benefit from higher levels within this r maria alejandra. ----ADDITIONAL INFORMATION---- This test was developed and its performa nce characteristics determined by [facility] in a manner consistent with CLIA requirements. This test has not been cleared or approved by the [place] d and Drug Administration. Specimen Anatomical Collection Method Collection Time Receive d Time (Source) Location / / Volume Laterality Blood (Blood, 10/16/2018 12:52 10/17/2018 9:28 Venous) PM REMELT OPERATOR AM REMELT OPERATOR Annemarie Montiel M.D. LAB BLOOD ADD-ON Performing Organization Address City/State/ZIP Code Phon e Number [facility] [address] [place], [place] [address] [facility] documented in this encounter Visit Diagnoses Diagnosis Depression Major Recurrent (HCC) - Prima ry Anxiety Generalized Disorder Surgery Bariatric Status Post documented in this encounter Additional Health Concerns Assessment Noted Time PHQ-9 Depression Total Score: 15 10/16/2018 11:[address] documented as of this encounter Care Teams Director Financial Services Relationship Specialty Start Date End Date Annemarie Montiel M.D. PCP - General 04/19/17 [address] [place] [address] documented as of this encounter
--- OUTSIDE RECORDS SUMMARY | 2022-07-24 15:13 | XMS_ITS | Encounter Summary ---
:1985 Author Organization [facility] Address [address] [place] [address] Care Team Providers Name Role Phone Annemarie Montiel M.D. Primary Care Provider [phone] Reason for Visit Reason Comments Med Refill Encounter Details Date Type Department Care Team Description 01/21/2018 Refill Department of Yenifer Song M.D. Med Refill Medicine, [facility], [address] [place] [address] [address] [place] [address] [facility] [phone] Social History Tobacco Use Types Packs/Day Years [...] How often do you attend confucianist or rastafari Never 07/04/2019 services? 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 documented in this encounter Plan of Treatment Upcoming Encounters Date Type Specialty Care Team Description 08/17/2022 Procedure visit Neurology Marina Winter M.D., M.P.H. [address], [place] [phone] (Wo rk) Scheduled Procedures Name Priority Associated Diagnoses Date/Time LIFT THIGH Excessive And Redundant Skin And Subcutaneous Tissue documented as of this encounter Visit Diagnoses Not on filedocumented in this encounter Additional Health Concerns Assessment Noted Time PHQ-9 Depression Total Score: 13 08/21/2017 12:55 PM C DT documented as of this encounter Care Teams Combination Saw Operator Relationship Specialty Start Date End Date Annemarie Montiel M.D. PCP - General 04/19/17 [address], [place] [address] documented as of this encounter
--- OUTSIDE RECORDS SUMMARY | 2022-07-24 15:13 | XMS_ITS | Encounter Summary ---
:1985 Author Organization [facility] Address [address] [place] [address] Care Team Providers Name Role Phone Annemarie Montiel M.D. Primary Care Provider [phone] Encounter Details Date Type Department Care Team Description 10/17/2018 Clinical Communication Department of Maisha Song, Medicine, Porfirio Jaramillo [facility], in [facility] [address] [place], [place] [address] [place] [address] [place], [place] [phone] (Wo rk) [address] [phone] Social History Tobacco Use Types Packs/Day Years [...] How often do you attend caodaism or gnosticism Never 07/04/2019 services? 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 - 10/22/2018 11:48 AM POLICE LIEUTENANT PATROL Pt has review portal message. CE [employer]IE[employer]ENANT PATROL Telephone Encounter - Belinda Rueda C.M.A. - 10/17/2018 4:04 PM POLICE LIEUTENANT PATROL Left message for pt to check her portal. Dr. Montiel has sent a portal message about this issue. CE [employer]UTENANT PATROL Telephone Encounter - Denise Bhatia - 10/17/2018 1:06 PM CST Reason for Communication: Discuss lab results Current Can Nursing/Provider leave a detailed message: yes Did the patient refuse triage through Nurse line? (for symptom based concerns)NA Action Needed: Patient had labs done yesterday and would like to discuss her next course of action. Name of Medication (if relevant): CE LIEUTENANT PATROL documented in this encounter Plan of Treatment Upcoming Encounters Date Type Specialty Care Team Description 08/17/2022 Procedure visit Neurology Marina Winter M.D., M.P.H. [address] [place] [phone] (Wo rk) Scheduled Procedures Name Priority Associated Diagnoses Date/Time LIFT THIGH Excessive And Redundant Skin And Subcutaneous Tissue documented as of this encounter Visit Diagnoses Not on filedocumented in this encounter Additional Health Concerns Assessment Noted Time PHQ-9 Depression Total Score: 15 10/16/2018 11:[address] documented as of this encounter Care Teams Student Career Development Specialist Relationship Specialty Start Date End Date Annemarie Montiel M.D. PCP - General 04/19/17 [address] [place] [phone] documented as of this encounter
--- OUTSIDE RECORDS SUMMARY | 2022-07-24 15:13 | XMS_ITS | Encounter Summary ---
:1985 Author Organization [facility] Address [address] [place] [address] Care Team Providers Name Role Phone Annemarie Montiel M.D. Primary Care Provider [phone] Encounter Details Date Type Department Care Team Description 10/30/2018 Clinical Support Department of Yuliana Montiel M.D. [address] [place] [address] Surgery Bariatric Nutrition in [facility] [place] Maria Elena Regalado RDN, LD [address] [place] [id number] Status Post [place], [place] [address] [place] [address] Social History Tobacco Use Types Packs/Day [...] How often do you attend mandaen or roman catholic Never 07/04/2019 services? 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 documented as of this encounter Last Filed Vital Signs Vital Sign Reading Time Taken Comments Blood Pressure - - Pulse - - Temperature - - Respiratory Rate - - Oxygen Saturation - - Inhaled Oxygen Concentration - - Weight 104 kg (230 lb 6.1 oz) 10/30/2018 1:25 PM BELL HOLE DIGGER Height 167.5 cm (5' 5.95) 10/31/2018 8:59 AM BELL HOLE DIGGER Body Mass Index 37.25 10/30/2018 1:25 PM BELL HOLE DIGGER documented in this encounter Patient Instructions Patient InstructionsMaria Elena Smith RDN, LD - 10/30/2018 1:30 PM BELL HOLE DIGGER 1.) Look into Breakfast Essentials light start (Canation instant breakfast alternative) for meal replacement option, Boost (Calorie smart) and/or Slim Fast Original ( any flavor) 2.) Try making smoothies with yogurt & fruit 3.) Aim for 90-100 grams of carb per day, ideally 30 grams/day 4.) Flintstones complete multivitamin- recommend 2 tablets per day 5.) Could consider B-complex over-counter supplement as well HOLE DIGGER documented in this encounter Progress Notes Maria Elena Smith RDN, LD - 10/30/2018 1:30 PM CST REASON FOR VISIT: Medical nutrition therapy initial visit for s/p bariatric surgery. Referred by: Annemarie Montiel M.D. PRESENT FOR VISIT: Patient was seen today for nutrition education related to s/p gastric sleeve which was on on 07/23/18 in [place]. NUTRITION ASSESSMENT: She reports she is not doing well in regards to food and her nutritional status. She reports she was told she could only have 30 grams of carbohydrates per day maximum and at least 60-75 grams of protein. She reports she never feels hungry and experiences early satiety. She states she can't stand thetaste of premier protein shakes since surgery and is not using any form of oral nutrition protein/meal replacement option. She states she is experiencing hair loss and has been taking a multivitamin and biotin since surgery. She reports she has been living off string cheese and lunch meat. She reports she is not a breakfast eater typically. Typical breakfast is usually just a protein bar. She states she eats a lunch and 2 snacks typically. She reports she has avoided all fruits and vegetables due to no carbs. She is not eating any form of grain type products. She eats eggs in very small amounts. Reports she doesn't like beans and seldom eats cottage cheese. Physical Activity: ADL's. ANTHROPOMETRICS Height: 167.5 cm Weight: 104.5 kg BMI (Calculated): 37.2 kg/m?? Patient reports she has lost 70 lbs since 07/23/18.0 ESTIMATED NEEDS: Method to Estimate Energy Needs: kcal/kg Estimated Protein Needs Weight Used to Calculate Protein Needs (Kg): 59 kg Method to Estimate Protein Needs (g/kg): 1 - 1.2 Estimated Protein Needs (Low): 59 Estimated Protein Needs (High): 71 Comments: 60-70 Fluid Needs Estimated Fluid Needs: 1475 mL/day PERTINENT LABS: Vitamin B12 Assay, S Date Value Ref Range Status 10/16/2018 438 232 - 1245 ng/L Final Magnesium, S Date Value Ref Range Status 10/16/2018 1.7 1.7 - 2.3 mg/dL Final Glucose Date Value Ref Range Status 06/11/2015 106 70 - 139 MGDL Final Glucose, S Date Value Ref Range Status 10/16/2018 84 70 - 140 mg/dL Final Glucose, Fasting, S Date Value Ref Range Status 07/17/2017 88 70 - 99 MGDL Final SOCIAL HISTORY: Living arrangement: Lives with family. Learning barriers: none NUTRITION DIAGNOSIS: Inadequate oral intake related to lack of adequate nutrition education regarding post-operative nutrition guidelines as evidenced by patient reported she was limiting carbs to 30 grams/day, 60-75 gramsof protein and no sugars NUTRITION INTERVENTION: Interventions: Nutrition counseling, Nutrition education RD discussed post-surgery nutrition guidelines and discussed need to not be so strict with her diet.She has minimal carbohydrates in her current intake and overall is not getting the nutrition she needs. She voices frustration with guidelines she was provided in [place] and states she was told she shouldn't have fruit, vegetables or grains due to carb content. Discussed recommendation of using an oral meal replacement/protein beverage to help increase her daily protein intake and ensure she is getting the right balance of macro and micronutrient she needs. Provided recommendations of different supplements she could try and as she reports she can't stand premier protein. Also talked about aiming for 30 grams of carb per meal and 15-20 per snack, ideally no less than 90-100 grams of carb per day.Discussed continuing to avoid added sugars but discussed natural sugar from fruits is allowed. Reviewed alternative protein sources due to her reporting she can't stomach but meat anymore. Also talked a bout importance of hydration and good water intake as well as eating 5-6 meals per day versus 3 large meals especially in the setting of early satiety. Education materials provided: none NUTRITION PLAN: educated patient on post-bariatric nutrition guidelines for diet advancement. MONITORING AND EVALUATION: Nutrition Indicator Indicator/Desired Outcome: 1-2 lb weight loss per week Indicator 2/Desired Outcome: Establish healthy eating pattern Patient Goal(s): 1.) Look into Breakfast Essentials light start (Canation instant breakfast alternative) for meal replacement option, Boost (Calorie smart) and/or Slim Fast Original ( any flavor) 2.) Try making smoothies with yogurt & fruit 3.) Aim for 90-100 grams of carb per day, ideally 30 grams/day 4.) Flintstones complete multivitamin- recommend 2 tablets per day 5.) Could consider B-complex over-counter supplement as well FOLLOW UP PLAN: 1. Patient is provided with contact information and encouraged to call with questions or concerns. 2. Encouraged patient to follow up per patient preference. Time spent with patient (minutes): 45 Minutes HOLE DIGGER documented in this encounter Plan of Treatment Upcoming Encounters Date Type Specialty Care Team Description 08/17/2022 Procedure visit Neurology Marina Winter M.D., M.P.H. [address] [place] [phone] (Wo rk) Scheduled Procedures Name Priority Associated Diagnoses Date/Time LIFT THIGH Excessive And Redundant Skin And Subcutaneous Tissue documented as of this encounter Visit Diagnoses Diagnosis Surgery Bariatric Status Post documented in this encounter Additional Health Concerns Assessment Noted Time PHQ-9 Depression Total Score: 15 10/16/2018 11:[address] documented as of this encounter Care Teams Licensed Home Inspector Relationship Specialty Start Date End Date Annemarie Montiel M.D. PCP - General 04/19/17 [address] [facility] [place] [address] documented as of this encounter
--- OUTSIDE RECORDS SUMMARY | 2022-07-24 15:13 | XMS_ITS | Encounter Summary ---
:1985 Author Organization [facility] Address [address] [place] [address] Care Team Providers Name Role Phone Annemarie Montiel M.D. Primary Care Provider [phone] Encounter Details Date Type Department Care Team Description 09/14/2017 Nurse Triage Department of Nika Iverson, Medicine, [facility], [place], [place] [address] [place] [address] Social History Tobacco Use Types Packs/Day Years [...] How often do you attend baptism or caodaism Never 07/04/2019 services? 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 - 09/14/2017 4:38 PM CST Requests treatment for a vaginal yeast infection. Has had a white clumpy vaginal discharge with someinternal itching for 24 hours. NKA to medications. Requests treatment with the pill. Patient was provided aftercare instructions. FACTURING QUALITY INSPECTOR documented in this encounter Plan of Treatment Upcoming Encounters Date Type Specialty Care Team Description 08/17/2022 Procedure visit Neurology Marina Winter M.D., M.P.H. [address] [phone] (Wo rk) Scheduled Procedures Name Priority Associated Diagnoses Date/Time LIFT THIGH Excessive And Redundant Skin And Subcutaneous Tissue documented as of this encounter Visit Diagnoses Not on filedocumented in this encounter Additional Health Concerns Assessment Noted Time PHQ-9 Depression Total Score: 13 08/21/2017 12:55 PM C DT documented as of this encounter Care Teams Oyster Worker Relationship Specialty Start Date End Date Annemarie Montiel M.D. PCP - General 04/19/[address] [phone] documented as of this encounter
--- OUTSIDE RECORDS SUMMARY | 2022-07-24 15:13 | XMS_ITS | Encounter Summary ---
:1985 Author Organization [facility] Address [address] [place] [address] Care Team Providers Name Role Phone Annemarie Montiel M.D. Primary Care Provider [phone] Reason for Visit Reason Comments Med Refill Encounter Details Date Type Department Care Team Description 03/26/2018 Refill Department of Yenifer Song M.D. Med Refill Medicine, [facility], in [address], [place] [address] [address] [facility] [place] [address] [phone] Social History Tobacco Use Types Packs/Day Years [...] 03/29/2020 relatives? How often do you attend zoroastrian or lutheran Never 07/04/2019 services? 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 - 03/29/2018 11:44 AM CDT Rx pending documented in this encounter Plan of Treatment Upcoming Encounters Date Type Specialty Care Team Description 08/17/2022 Procedure visit Neurology Marina Winter M.D., M.P.H. [address], [place] [phone] (Wo rk) Scheduled Procedures Name Priority Associated Diagnoses Date/Time LIFT THIGH Excessive And Redundant Skin And Subcutaneous Tissue documented as of this encounter Visit Diagnoses Not on filedocumented in this encounter Additional Health Concerns Assessment Noted Time PHQ-9 Depression Total Score: 13 08/21/2017 12:55 PM C DT documented as of this encounter Care Teams Agricultural Aircraft Pilot Relationship Specialty Start Date End Date Annemarie Montiel M.D. PCP - General 04/19/17 [address], [place] [address] documented as of this encounter
--- OUTSIDE RECORDS SUMMARY | 2022-07-24 15:14 | XMS_ITS | Encounter Summary ---
:1985 Author Organization [facility] Address [address] [place] [address] Care Team Providers Name Role Phone Annemarie Motniel M.D. Primary Care Provider [phone] Encounter Details Date Type Department Care Team Description 08/09/2017 Hospital Encounter HX [facility] Ramsey Valero A PRN, C.N.P., M.S.N. Social History Tobacco Use Types Packs/Day Years [...] How often do you attend advent or holiness Never 07/04/2019 services? 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 documented as of this encounter Last Filed Vital Signs Vital Sign Reading Time Taken Comments Blood Pressure 116/74 08/09/2017 1:04 PM CDT Pulse 88 08/09/2017 1:04 PM CDT Temperature - - Respiratory Rate 16 08/09/2017 1:04 PM CDT Oxygen Saturation - - Inhaled Oxygen Concentration - - Weight 125 kg (274 lb 11.1 oz) 08/09/2017 1:04 PM CDT Height 164 cm (5' 4.57) 08/09/2017 1:04 PM CDT Body Mass Index 46.33 08/09/2017 1:04 PM CDT documented in this encounter Medications at Time of Discharge Medication Sig Dispensed Refills Start Date End Date Misc Prescription Misc Prescription 0 07/17/2017 12/16/2019 (Allergy Immunotherapy) Cocunut oil 1000mg tablet daily naproxen (for_NAPROSYN) Take 1 tablet by mouth 0 04/30/2017 02/27/2018 250 mg tablet 2 (two) times a day as needed. phentermine Take 1 tablet by mouth 0 02/07/2017 1 12/17/2016 (for_ADIPEX-P) 37.5 mg daily. tablet venlafaxine XR (EFFEXOR Take 1 capsule by 0 12/2703/27/2018 XR) 75 mg 24 hr capsule mouth daily. zolpidem (AMBIEN) 10 mg Take 1 tablet by mouth 0 08/09/2017 01/21/2018 tablet at bedtime. documented as of this encounter Progress Notes Ramsey Dinh M.SRodrigoN. - 08/09/2017 12:58 PM CDT [id number] CHIEF COMPLAINT/REASON FOR VISIT Nancy is seen for a 2-week postoperative visit. She underwent an abdominal hysterectomy with wide transverse incision with bilateral salpingectomy on 07/25/2017. Surgeon: Dr. Tejeda. HISTORY OF PRESENT ILLNESS She is generally doing well postoperatively. She is having some bladder symptoms which are problematic. She did undergo a CT urogram while in the hospital as well. She continues to have some discomfortin the lower abdomen which she describes mainly as a cramping sensation. She did have a urinalysis done August 02 which showed a small amount of leukocyte esterase, large amount of blood, and 21 to 30 WBCs on a high-powered field. She did have some hyaline casts and 4 to 10 squamous epithelials. Yeast was present as well as bacteria. No culture was performed. She is currently taking antibiotics for her incision. Bowel function is normal with no constipation. Bladder/voiding is normal. Pain is mild to moderate. Using her narcotic pain relievers occasionally for pain. MEDICATIONS Antibiotic of unknown type. She does have approximately 4 days left of this. Ambien at bedtime. Venlafaxine 75 mg daily. Oxycodone 1 tablet every 4 hours as needed for pain. Naproxen 1 tablet 2 times a day. Coconut oil 1000 mg tablet daily. ALLERGIES No known medication allergies. VITAL SIGNS Temp 36.7, heart rate 88, respirations 16, blood pressure 116/74, height 164 cm, weight is 124.6 kg,BMI 46.33. PHYSICAL EXAMINATION A 32-year-old female. Her skin is warm, pink and dry. Incision site is healing well with some scabbing at the drain site and along the left lateral edge of the incision line, but otherwise it is healing well without signs of infection or separation. She does have some edema, particularly along the upper and lower edges of the incision on the right half of the incision to a lesser degree and on the left side. Overall things appear to be healing well. Vaginal exam is not performed. IMPRESSION/REPORT/PLAN Pathology report was reviewed with the patient. Her questions were answered. I recommend some Vaseline to any scabbed areas along the incision line. We did discuss that with some yeast in her urine I would recommend that she take a dose of Diflucan to see if this would be helpful with some of her symptoms, although this sounds pretty typical postoperative at 2 weeks. I suspect her urine sample reallyis more vaginal contaminant. She is encouraged to complete her course of antibiotics which had previously been felt to cover any urinary tract infection issues. Encouraged to follow up should she have questions or changes in her health status before being seen back in 6 weeks. Leeann Yusuf/pepe Electronically Signed By: RAMSEY DINH NP On: 08/28/2017 06:24 PM Source: [facility] MHSDOLBEYNONRADSYS Document Id: [id number] documented in this encounter Miscellaneous Notes Miscellaneous - Ramsey Dinh M.SSarah. - 08/09/2017 1:56 PM CDT Ambulatory Patient Summary [address] [id number] Visit Information Name: NANCY PHILLIPS [facility] Number: [id number] Current Date: 08/09/2017 13:56:18 Physicians Attending Provider: RAMSEY DINH NP Primary Care Provider: ANNEMARIE MONTIEL MD NANCY [...] Take Indications/Special Instructions/Comments/Notes for Patient Medication Changes/Routing fluconazole (Diflucan 150 mg oral tablet) 1 Tablet(s), Oral, once New Routed to [facility] [address] [place] [address] [place] Prescription ([place] Prescription) Cocunut oil 1000mg tablet daily naproxen (naproxen 250 mg oral tablet) 1 Tablet(s), Oral, two times a day as needed for pain with food oxyCODONE-acetaminophen (oxyCODONE-acetaminophen 5 mg-325 mg oral tablet) 1 Tablet(s), Oral, every 4hours as needed for Pain No more than 4,000mg acetaminophen/24hrs venlafaxine (Effexor XR 75 mg oral capsule, extended release) 1 cap, Oral, once a day zolpidem (Ambien 10 mg oral tablet) 1 Tablet(s), Oral, once a day (at bedtime) Stop Taking the Following Medications: Medication list as of 08-09-17 13:56 Attention: If you have any medications at home that are not on this list, DO NOT take them until youcontact your provider for clarification. Give a copy of your medication list to your primary care provider. Update your medication list any time medications or doses are changed and carry your medication list at all times in case of emergency. Electronically Signed By: RAMSEY DINH NP Signed On:09-AUG-2017 13:56:13 Your Allergies & Intolerances Substance Reaction Symptoms [...] Your Upcoming Appointments Date Time Location Provider 08/21/2017 10:30 [facility] Dinesh RED, Nicki Zuniga 09/06/2017 13:15 [facility] MINK SLICER Ileana RED, Nahun Regalado Attention: Contact your local Clinic if further [...] if you dont have one. Go to [email or web address] and click on Create Your Account. Then, follow the directions to complete the online form. Youll be asked for your [facility] number which you can find at the top of this document. Your Goals/Additional instructions: Source: [facility] POWERCHART Document Id: [id number] Miscellaneous - Ramsey Dinh M.S.N. - 08/09/2017 1:56 PM CDT Ambulatory Discharge Medication List [facility] [address] [place] [id number] Visit Information Name: NANCY PHILLIPS [facility] Number: [id number] Current Date: 08/09/2017 13:56:17 Attending Provider: RAMSEY DINH NP Primary Care Provider: ANNEMARIE MONTIEL MD NANCY [...] Take Indications/Special Instructions/Comments/Notes for Patient Medication Changes/Routing fluconazole (Diflucan 150 mg oral tablet) 1 Tablet(s), Oral, once New Routed to [facility] [address] [place] [address] [place] Prescription ([place] Prescription) Cocunut oil 1000mg tablet daily naproxen (naproxen 250 mg oral tablet) 1 Tablet(s), Oral, two times a day as needed for pain with food oxyCODONE-acetaminophen (oxyCODONE-acetaminophen 5 mg-325 mg oral tablet) 1 Tablet(s), Oral, every 4hours as needed for Pain No more than 4,000mg acetaminophen/24hrs venlafaxine (Effexor XR 75 mg oral capsule, extended release) 1 cap, Oral, once a day zolpidem (Ambien 10 mg oral tablet) 1 Tablet(s), Oral, once a day (at bedtime) Stop Taking the Following Medications: Medication list as of 08-09-17 13:56 Attention: If you have any medications at home that are not on this list, DO NOT take them until youcontact your provider for clarification. Give a copy of your medication list to your primary care provider. Update your medication list any time medications or doses are changed and carry your medication list at all times in case of emergency. Electronically Signed By: RAMSEY DINH NP Signed On:09-AUG-2017 13:56:13 Additional Information: Source: [facility] POWERCHART Document Id: [id number] Miscellaneous - Nusrat Miller L.PRodrigoNRodrigo - 08/09/2017 1:04 PM CDT Adult Automotive Service Assistant Intake/History Adult Automotive Service Assistant Intake/History Entered On: 08/09/2017 13:08 CDT Performed On: 08/09/2017 13:04 CDT by NUSRAT MILLER LPN Intake Chief Complaint : 2 week post op hysterectomy 07/25/2017 Rafael Tejeda continues on antibiotic for UTI andsymptoms continue Temperature Oral : 36.7 DegC(Converted to: 98.1 DegF) Peripheral Pulse Rate : 88 /min Respiratory Rate : 16 /min Heart Rhythm : Regular Systolic Blood Pressure : 116 mmHg Diastolic Blood Pressure : 74 mmHg NIBP Mean : 88 mmHg BP Location : Left upper extremity Blood Pressure Cuff Size : Large Height : 164 cm(Converted to: 5 ft 5 inch(es), 65 inch(es)) Actual Weight : 124.6 kg(Converted to: 274 lb 11 oz) Weight Source : Standing scale Dosing Weight Clinic : 124.6 kg Clinic BSA : 2.38 Body Mass Index : 46.33 kg/m2 NUSRAT MILLER [facility] - 08/09/2017 13:04 CDT General Info Information Given By : Patient Preferred Communication Mode : Verbal Languages : Malay Is Patient Female and 13-50 no hysterectomy : No NUSRAT MILLER LPN - 08/09/2017 13:04 CDT Subjective Pain Symptoms : Yes NUSRAT MILLER LPN - 08/09/2017 13:04 CDT Pain Scale Pain Scale Verbal 0-10 : Open NUSRAT MILLER RO[address] FREIGHT FIRER 08/09/2017 13:04 CDT Pain Pain Assessment Grid Pain 1 Location : Abdomen Laterality : Left Intensity : 3 NUSRAT MILLER LPN 08/09/2017 13:04 CDT Dependent Habits Exposure to Tobacco Smoke : Other: never Smoking Status : Never smoker Tobacco 2A : No Tobacco Use/Currently Using : No Tobacco Use/Last 30 Days : No Tobacco Use/Last 12 months : No NUSRAT MILLER LPN 08/09/2017 13:04 CDT Caffeine Use Grid Caffeine Use : Current Type : Soft drinks Frequency : Daily Amount : regular 1-[address] FREIGHT FIRER 08/09/2017 13:04 CDT Source: [facility] Document Id: [id number] documented in this encounter Plan of Treatment Upcoming Encounters Date Type Specialty Care Team Description 08/17/2022 Procedure visit Neurology Marina Winter M.D., M.P.H. [address], [place] [phone] (Wo rk) Scheduled Procedures Name Priority Associated Diagnoses Date/Time LIFT THIGH Excessive And Redundant Skin And Subcutaneous Tissue documented as of this encounter Visit Diagnoses Not on filedocumented in this encounter Additional Health Concerns Assessment Noted Time PHQ-9 Depression Total Score: 9 12/27/2016 10:29 AM CS T documented as of this encounter Care Teams Drum Sander Offbearer Relationship Specialty Start Date End Date Annemarie Montiel M.D. PCP - General 04/19/[address] [phone] documented as of this encounter
--- OUTSIDE RECORDS SUMMARY | 2022-07-24 15:14 | XMS_ITS | Encounter Summary ---
:1985 Author Organization [facility] Address [address] [place] [address] Care Team Providers Name Role Phone Annemarie Montiel M.D. Primary Care Provider [phone] Encounter Details Date Type Department Care Team Description 07/17/2017 Hospital Encounter HX [facility] Eva Shields M.D. Social History Tobacco Use Types Packs/Day Years [...] 03/29/2020 relatives? How often do you attend nondenominational or gnosticist Never 07/04/2019 services? 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 documented as of this encounter Miscellaneous Notes Telephone Encounter - Conversion, Historical Provider Ser - 08/08/2017 11:39 AM CDT *Phone Message- Dr. Tejeda Document Contains Addenda Addendum by RADHA RHOADES on August 09, 2017 11:27:24 CDT Patient has an appointment with Ayanna Xie today-will give her the prescriptions then. Addendum by SHAR TEJEDA MD on August 09, 2017 11:15:56 CDT From: SHAR TEJEDA MD To: GENERAL OPHTHALMOLOGIST Nurse; Sent: 08/09/2017 11:15:56 CDT Subject: RE: *Phone Message- Dr. Tejeda Thanks, I prionted the RX for these refills ; she can p[ick them up at her appointment time. Addendum by LIA CUEVAS LPN on August 08, 2017 13:13:15 CDT From: LIA CUEVAS LPN ( GENERAL OPHTHALMOLOGIST Nurse) To: SHAR TEJEDA MD; Sent: 08/08/2017 13:13:15 CDT Subject: FW: *Phone Message- Dr. Tejeda Spoke with patient and she said that her bowels are working well. She does have a 2 week visit with Ayanna Xie tomorrow. She had and abdominal hysterectomy on 07-25-2017. Unable to propse medication asit was prescribed in the hospital. Patient is aware that you are not is the office today. From: BRENT AGUILAR To: OW GENERAL OPHTHALMOLOGIST Nurse; Sent: 08/08/2017 11:39:07 CDT Subject: *Phone Message- Dr. Tejeda Caller is: ( x ) Patient ( ) Mother ( ) Father ( ) Spouse ( ) Daughter ( ) Son ( ) Pharmacy ( ) Other: Physician: Dr. Tejeda Patient MRN #: Reason for Call: Message: S: Pt called clinic to talk to nurse B: is requesting refill of Percocet and Ambien A: R: Please call pt at [phone] Advice/Action: Source used: ( ) Verbalizes understanding of instructions ( ) Instructed to call back if symptoms worsen or do not resolve ( ) Refused to see provider ( ) Appointment Scheduled ( ) OK to leave message on voice mail ( ) Patient told to expect return call: ( ) today ( ) tomorrow ( ) next work day ( ) Patient's email ( ) Patient told physician out of office, will call upon return call on ( ) ( ) Patient told physician out of office, routed to other physician ( ) Other ( ) Call back telephone number ( ) Call back cell phone number ( ) Source: [facility] XubaCHART Document Id: [id number] documented in this encounter Plan of Treatment Upcoming Encounters Date Type Specialty Care Team Description 08/17/2022 Procedure visit Neurology Marina Winter M.D., M.P.H. [address] [phone] (Wo rk) Scheduled Procedures Name Priority Associated Diagnoses Date/Time LIFT THIGH Excessive And Redundant Skin And Subcutaneous Tissue documented as of this encounter Visit Diagnoses Not on filedocumented in this encounter Additional Health Concerns Assessment Noted Time PHQ-9 Depression Total Score: 9 12/27/2016 10:29 AM CS T documented as of this encounter Care Teams Security Door Installer Relationship Specialty Start Date End Date Annemarie Montiel M.D. PCP - General 04/19/[address] [phone] documented as of this encounter
--- OUTSIDE RECORDS SUMMARY | 2022-07-24 15:14 | XMS_ITS | Encounter Summary ---
:1985 Author Organization [facility] Address [address] [place] [address] Care Team Providers Name Role Phone Unavailable Primary Care Provider Unavailable Encounter Details Date Type Department Care Team Description 12/07/2016 Hospital Encounter HX [facility] Ranjit Lee M.D. [address], [place] [phone] (Wo rk) Social History [...] 03/29/2020 relatives? How often do you attend baptist or evangelical Never 07/04/2019 services? 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 - 12/07/2016 3:26 PM CST [id number] CHIEF COMPLAINT/REASON FOR VISIT Postop check. HISTORY OF PRESENT ILLNESS Nancy is a 31-year-old para 4-0-1-4 female who is 6 days postop status post repeat low transverse section and bilateral tubal ligation who presents for postop check today and she describes an itchy red rash on her abdomen. Nancy underwent section 6 days ago and this was complicated by a baby with minimal tone and low Apgars who was flown out. The baby is doing well at this time.Nancy reports that over the last several days she has developed an itchy red rash on her abdomen. At first it was even swollen. She reports that otherwise she is doing well. She is voiding, ambulating and tolerating a regular diet without difficulty and having normal bowel movements. Her lochia is li ghtening up. She was started on Effexor 150 mg by mouth daily while she was in the hospital and reports that after she takes she feels very tired. Therefore she believes she maybe should be on a lower dose. She reports that she is doing well from a mood standpoint. MEDICATIONS See medication list updated in the EMR today. ALLERGIES See allergy list updated in the EMR today. SYSTEMS REVIEW GENERAL: Positive for fatigue. No fevers, chills, unintentional weight loss or weight gain. HEENT: No changes in vision or hearing, no sore throat or nasal congestion. CARDIOVASCULAR: No chest pain, irregular heartbeat or racing heart. RESPIRATORY: No shortness of breath, cough or wheeze. GASTROINTESTINAL: Positive for abdominal pain due to her section. No nausea, vomiting, diarrhea, constipation. GENITOURINARY: No pain or burning with urination, no irregular vaginal bleeding, heavy periods, painful periods, abnormal vaginal discharge, leaking urine, leaking stool or gas. SKIN: Positive for rash and skin lesions - see HPI. BREASTS: No masses or lumps, no discharge from the nipples. NEUROLOGIC: No difficulty with memory, numbness, tingling, falls. PSYCHIATRIC: Positive for anxiety and depression. ENDOCRINE: Positive for hair loss. No heat intolerance, cold intolerance, excessive thirst. VITAL SIGNS See results review section updated in the EMR today. PHYSICAL EXAMINATION GENERAL: Well-nourished female in no acute distress. HEAD: Normocephalic, atraumatic. ABDOMEN: Soft, nondistended, nontender. There is a Pfannenstiel skin incision that is clean, dry, intact without redness, erythema or increased warmth. The Steri-Strips have fallen off. SKIN: The skin of the abdomen has a diffuse erythematous rash that is raised on the very upper part of the abdomen. There is a sharply demarcated border and is in a square shape on the outer edge and there is a triangle shape in the center that is spared. The distribution of this rash is where the plastic adhesive that is part of the surgical drape was adherent to her skin. LOWER EXTREMITIES: Nontender, 1+ edema bilateral lower extremities. IMPRESSION/REPORT/PLAN A 31-year-old para 4-0-1-4 female who is 6 days postop status post repeat low transverse section with bilateral tubal ligation who presents today for postop check and has a rash on her abdomenand some edema in her lower extremities. 1. Postoperative progress: Other than the rash the patient is making excellent postoperative progress. She is voiding, ambulating and tolerating a regular diet without difficulty. 2. Rash: This is in the distribution where the adherent plastic was that is part of the drape. I think it is an allergic contact dermatitis from the prep that got trapped under the plastic or from the plastic itself. I am going to give her a prescription for Kenalog cream 0.1% to apply 2 times daily for the next 1 to 2 weeks to see if she gets relief with this. The lower portion of the rash seems to be improving as it is not raised today but the upper part is raised. I would expect this to improve over the next several days. She will call me before the end of the day tomorrow to let me know if her symptoms are worsening. If they are not worsening I would have her continue this. If they do begin toworsen I would start her on a course of oral steroids. I do not think this is related to an incisional infection as the incision itself is clean, dry and intact without erythema. 3. History of mild gestational hypertension: The patient's blood pressure is in the normal range today. She does have some mild lower extremity edema but her weight is down from predelivery. She was advised to keep her legs up as much as possible. 4. History of anxiety and depression: The patient is currently on Effexor 150 mg by mouth daily but reports excessive sedation after taking this. Therefore I have decreased her dose to 75 mg at this time. Hopefully her sedation will improve with this. She does have an appointment to followup with Dr. Montiel, who manages her psychiatric medications, around December 31. 5. Followup: In 1 week to check her rash and incision and in 5 weeks for visit. Kristi Melissa M.D./pepe Electronically Signed By: KRISTI MELISSA MD On: 12/09/2016 02:54 PM Source: [facility] MHSDOLBEYNONRADSYS Document Id: [id number] CTOR OF SECURITY documented in this encounter Miscellaneous Notes Miscellaneous - Kristi Melissa M.D. - 12/07/2016 5:53 PM CST Ambulatory Discharge Medication List [address] [id number] Visit Information Name: NANCY PHILLIPS [facility] Number: [id number] Current Date: 12/07/2016 17:53:45 Attending Provider: KRISTI MELISSA MD Primary Care Provider: MAILE MONTIEL MD NANCY PHILLIPS has been given the following list of medications: Your Medications It is important to take your medications as directed. Use a pill box or chart to help remind you to take your medications. Please let your doctor or nurse know if you have problems taking your medications. Medication/Strength How to Take Indications/Special Instructions/Comments/Notes for Patient Medication Changes/Routing docusate-senna (Senna S) 2 Tablet(s), Oral, once a day (at bedtime) ibuprofen (ibuprofen 600 mg oral tablet) 1 Tablet(s), Oral, every 6 hours multivitamin, ( Multivitamins) 1 TAB, Oral, once a day triamcinolone topical (Kenalog 0.1% topical cream) 1 corey, Topical, two times a day apply a thin filmto rash on abdomen for up to 2 weeks New Routed to [facility] [address] [place] [address] venlafaxine (Effexor XR 150 mg oral capsule, extended release) 1 cap, Oral, once a day venlafaxine (Effexor XR 75 mg oral capsule, extended release) 1 cap, Oral, once a day New Routed to [facility] [address] [place] [address] Stop Taking the Following Medications: Medication list as of 12-07-16 17:53 Attention: If you have any medications at home that are not on this list, DO NOT take them until youcontact your provider for clarification. Give a copy of your medication list to your primary care provider. Update your medication list any time medications or doses are changed and carry your medication list at all times in case of emergency. Electronically Signed By: KRISTI MELISSA MD Signed On:07-DEC-2016 17:53:43 Additional Information: Source: [facility] POWERCHART Document Id: [id number] CTOR OF SECURITY Miscellaneous - Kristi Melissa M.D. - 12/07/2016 5:53 PM CST Ambulatory Patient Summary [address] [place], [place] [id number] Visit Information Name: NANCY PHILLIPS [facility] Number: [id number] Current Date: 12/07/2016 17:53:46 Physicians Attending Provider: KRISTI MELISSA MD Primary Care Provider: MAILE MONTIEL MD NANCY PHILLIPS has been given [...] Take Indications/Special Instructions/Comments/Notes for Patient Medication Changes/Routing docusate-senna (Senna S) 2 Tablet(s), Oral, once a day (at bedtime) ibuprofen (ibuprofen 600 mg oral tablet) 1 Tablet(s), Oral, every 6 hours multivitamin, ( Multivitamins) 1 TAB, Oral, once a day triamcinolone topical (Kenalog 0.1% topical cream) 1 corey, Topical, two times a day apply a thin filmto rash on abdomen for up to 2 weeks [facility] [address] [place] [address] venlafaxine (Effexor XR 150 mg oral capsule, extended release) 1 cap, Oral, once a day venlafaxine (Effexor XR 75 mg oral capsule, extended release) 1 cap, Oral, once a day New Routed to [facility] [address] [place] [address] Stop Taking the Following Medications: Medication list as of 12-07-16 17:53 Attention: If you have any medications at home that are not on this list, DO NOT take them until youcontact your provider for clarification. Give a copy of your medication list to your primary care provider. Update your medication list any time medications or doses are changed and carry your medication list at all times in case of emergency. Electronically Signed By: KRISTI MELISSA MD Signed On:07-DEC-2016 17:53:43 Your Allergies & Intolerances Substance Reaction Symptoms Category Comments No Known Allergies Drug Your Problem List Problem Status Onset Comments Endometriosis Pelvic Peritoneum Active 07/25/2004 Migraine headache Active 08/23/2010 Tattoo Active Genital herpes Active 02/19/2011 02/20/11 recurrent genital HSV Major Depressive Disorder, Recurrent Episode, Unspecified Degree Active 02/27/2011 02/27/11 depression, recurrent. Relationship problems Active 09/10/2012 Previous Section, Antepartum Condition or Complication Active 04/23/2013 Active 03/07/2016 Normal Preg Not First 1st Preg (IUPF) Active Morbid Obesity Body Mass Index (BMI) > 40 Adult Active Preg With Pers Hx Preeclampsia Previous Preg Active Discrepancy Uterine Size Date Antepartum Preg Active (C) Section Delivery Active DM Gestational Preg (GDM) Antepartum Active Your Upcoming Appointments Date Time Location Provider 12/15/2016 14:00 [facility] Kristi Melissa MD [facility]2016 [facility] 01/11/2017 13:15 [facility] 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 Go to [email or web address] and click on Create Your Account. Then, follow the directions to complete the online form. Youll be asked for your [facility] number which you can find at the top of this document. Your Goals/Additional instructions: Source: [facility] POWERCHART Document Id: [id number] CTOR OF SECURITY Miscellaneous - Alexandra العلي, L.P.N. - 12/07/2016 3:48 PM CST Adult Supervisor General Intake/History Adult Supervisor General Intake/History Entered On: 12/07/2016 15:49 DIRECTOR OF SECURITY Performed On: 12/07/2016 15:48 DIRECTOR OF SECURITY by ALEXANDRA العلي ANNUAL GIVING DIRECTOR Intake Chief Complaint : Post op Systolic Blood Pressure : 128 mmHg Diastolic Blood Pressure : 78 mmHg NIBP Mean : 95 mmHg BP Location : Right upper extremity Blood Pressure Cuff Size : Large Height : 164 cm(Converted to: 5 ft 5 inch(es), 65 inch(es)) Actual Weight : 121.9 kg(Converted to: 268 lb 12 oz) Weight Source : Standing scale Dosing Weight Clinic : 121.9 kg Clinic BSA : 2.36 Body Mass Index : 45.32 kg/m2 ALEXANDRA العلي LPN - 12/07/2016 15:48 DIRECTOR OF SECURITY General Info Languages : Japanese Is Patient Female and 13-50 no hysterectomy : Yes Status : Patient denies Are you ? : No ALEXANDRA العلي LPN - 12/07/2016 15:48 DIRECTOR OF SECURITY Subjective Pain Symptoms : No ALEXANDRA العلي LPN - 12/07/2016 15:48 DIRECTOR OF SECURITY Dependent Habits Exposure to Tobacco Smoke : Other: never Smoking Status : Never smoker Tobacco 2A : No Tobacco Use/Currently Using : No Tobacco Use/Last 30 Days : No Tobacco Use/Last 12 months : No ALEXANDRA العلي LPN - 12/07/2016 15:48 DIRECTOR OF SECURITY Caffeine Use Grid Caffeine Use : Current Type : Soft drinks Frequency : Daily Amount : regular 1-2 cans daily ALEXANDRA العلي LPN - 12/07/2016 15:48 DIRECTOR OF SECURITY Source: [employer] Document Id: [id number] DIRECTOR OF SECURITY!34 CTOR OF SECURITY documented in this encounter Plan of Treatment Upcoming Encounters Date Type Specialty Care Team Description 08/17/2022 Procedure visit Neurology Marina Winter M.D., M.P.H. [address] [phone] (Wo rk) Scheduled Procedures Name Priority Associated Diagnoses Date/Time LIFT THIGH Excessive And Redundant Skin And Subcutaneous Tissue documented as of this encounter Visit Diagnoses Not on filedocumented in this encounter Additional Health Concerns Assessment Noted Time PHQ-9 Depression Total Score: 13 06/14/2015 3:56 PM CD T documented as of this encounter
--- OUTSIDE RECORDS SUMMARY | 2022-07-24 15:14 | XMS_ITS | Encounter Summary ---
:1985 Author Organization [facility] Address [address] [place] [address] Care Team Providers Name Role Phone Annemarie Montiel M.D. Primary Care Provider [phone] Encounter Details Date Type Department Care Team Description 08/21/2017 Orders Only Department of Annemarie Song, Gestational Diabetes Medicine, [facility], in [place], [address] History Not [place], [place] [address] [address] [place], [place] [phone] (Wo rk) [address] [phone] Social History Tobacco Use Types Packs/Day Years [...] How often do you attend hoahaoism or denominational Never 07/04/2019 services? 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 [address] [place], [place] [phone] (Wo rk) Scheduled Procedures Name Priority Associated Diagnoses Date/Time LIFT THIGH Excessive And Redundant Skin And Subcutaneous Tissue documented as of this encounter Visit Diagnoses Diagnosis Gestational Diabetes [facility] istory Not documented in this encounter Additional Health Concerns Assessment Noted Time PHQ-9 Depression Total Score: 13 08/21/2017 12:55 PM C DT documented as of this encounter Care Teams Pneumatic Systems Operator Relationship Specialty Start Date End Date Annemarie Montiel M.D. PCP - General 04/19/172199 [place] [address] documented as of this encounter
--- OUTSIDE RECORDS SUMMARY | 2022-07-24 15:14 | XMS_ITS | Encounter Summary ---
:1985 Author Organization [facility] Address [address] [place] [address] Care Team Providers Name Role Phone Unavailable Primary Care Provider Unavailable Encounter Details Date Type Department Care Team Description 02/15/2017 Hospital Encounter HX [facility] Meche Montiel M.D. [address] [place] [address] (Wo rk) Social History Tobacco Use Types [...] 03/29/2020 relatives? How often do you attend anabaptism or pentecostalism Never 07/04/2019 services? 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 tablet venlafaxine XR (EFFEXOR Take 1 capsule by 0 12/2703/27/2018 XR) 75 mg 24 hr capsule mouth daily. documented as of this encounter Progress Notes Annemarie Montiel M.D. - 02/15/2017 12:00 AM CDT [id number] Nancy presented for an appointment today with her and two children. After talking with herwe understood that she really wanted her to be seen instead of herself. Since she had no concerns for herself today, we changed the encounter to be for her instead. This document serves as a record of services personally performed by Annemarie Montiel MD. It was created on their behalf by Reggie Cohen, a trained medical imaging tech. The creation of this record is basedon the scribe's personal observations and the provider's statements to them. This document has been c hecked and approved by the attending provider. Annemarie Montiel M.D./lesley Electronically Signed By: ANNEMARIE MONTIEL MD On: 03/04/2017 02:24 PM Source: [facility] [email or web address] Document Id: [id number] documented in this encounter Miscellaneous Notes Miscellaneous - Annemarie Montiel M.D. - 02/15/2017 1:51 PM CDT Ambulatory Patient Summary [facility] [address] [place], [place] [id number] Visit Information Name: NANCY PHILLIPS [facility] Number: [id number] Current Date: 02/15/2017 13:51:17 Physicians Attending Provider: ANNEMARIE MONTIEL MD Primary Care Provider: ANNEMARIE MONTIEL MD [...] Instructions/Comments/Notes for Patient Medication Changes/Routing docusate-senna (Senna S 50 mg-8.6 mg oral tablet) 2 Tablet(s), Oral, once a day (at bedtime) as needed for Constipation naproxen (naproxen 250 mg oral tablet) 1 Tablet(s), Oral, two times a day as needed for pain with food phentermine (phentermine 37.5 mg oral tablet) 1 Tablet(s), Oral, once a day phentermine (phentermine 37.5 mg oral tablet) 1 Tablet(s), Oral, once a day Routed to Printer venlafaxine (Effexor XR 75 mg oral capsule, extended release) 1 cap, Oral, once a day Stop Taking the Following Medications: Medication list as of 02-15-17 13:51 Attention: If you have any medications at home that are not on this list, DO NOT take them until youcontact your provider for clarification. Give a copy of your medication list to your primary care provider. Update your medication list any time medications or doses are changed and carry your medication list at all times in case of emergency. Electronically Signed By: ANNEMARIE MONTIEL MD Signed On:15-FEB-2017 13:51:15 Your Allergies & Intolerances Substance Reaction Symptoms [...] Your Upcoming Appointments Date Time Location Provider 03/27/2017 11:30 [facility] Nicki Montiel MD Attention: Contact your local Clinic if [...] if you dont have one. Go to [email or web address] and click on Create Your Account. Then, follow the directions to complete the online form. Youll be asked for your [facility] number which you can find at the top of this document. Your Goals/Additional instructions: Source: [facility] POWERCHART Document Id: [id number] Miscellaneous - Annemarie Montiel M.D. - 02/15/2017 1:51 PM CDT Ambulatory Discharge Medication List [address] [id number] Visit Information Name: NANCY PHILLIPS [facility] Number: [id number] Current Date: 02/15/2017 13:51:17 Attending Provider: ANNEMARIE MONTIEL MD Primary Care Provider: ANNEMARIE MONTIEL MD [...] Instructions/Comments/Notes for Patient Medication Changes/Routing docusate-senna (Senna S 50 mg-8.6 mg oral tablet) 2 Tablet(s), Oral, once a day (at bedtime) as needed for Constipation naproxen (naproxen 250 mg oral tablet) 1 Tablet(s), Oral, two times a day as needed for pain with food phentermine (phentermine 37.5 mg oral tablet) 1 Tablet(s), Oral, once a day phentermine (phentermine 37.5 mg oral tablet) 1 Tablet(s), Oral, once a day Routed to Printer venlafaxine (Effexor XR 75 mg oral capsule, extended release) 1 cap, Oral, once a day Stop Taking the Following Medications: Medication list as of 02-15-17 13:51 Attention: If you have any medications at home that are not on this list, DO NOT take them until youcontact your provider for clarification. Give a copy of your medication list to your primary care provider. Update your medication list any time medications or doses are changed and carry your medication list at all times in case of emergency. Electronically Signed By: ANNEMARIE MONTIEL MD Signed On:15-FEB-2017 13:51:15 Additional Information: Source: [facility] POWERCHART Document Id: [id number] Miscellaneous - Lilibeth Benson, L.P.N. 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 Entered On: 02/15/2017 12:28 CDT Performed On: 02/15/2017 12:24 CDT by LILIBETH BENSON LPN Intake Chief Complaint : discuss specifics of note that is needed Peripheral Pulse Rate : 84 /min Systolic Blood Pressure : 122 mmHg Diastolic Blood Pressure : 74 mmHg NIBP Mean : 90 mmHg BP Location : Right upper extremity Blood Pressure Cuff Size : Large Height : 164 cm(Converted to: 5 ft 5 inch(es), 65 inch(es)) Actual Weight : 116.6 kg(Converted to: 257 lb 1 oz) Weight Source : Standing scale Dosing Weight Clinic : 116.6 kg Clinic BSA : 2.3 Body Mass Index : 43.35 kg/m2 LILIBETH BENSON LPN - 02/15/2017 12:24 CDT General Info Information Given By : Patient Preferred Communication Mode : Verbal Languages : Yi Is Patient Female and 13-50 no hysterectomy : No LILIBETH BENSON LPN - 02/15/2017 12:24 CDT Subjective Pain Symptoms : No LILIBETH BENSON LPN - 02/15/2017 12:24 CDT Dependent Habits Exposure to Tobacco Smoke : Other: never Smoking Status : Never smoker Tobacco 2A : No Tobacco Use/Currently Using : No Tobacco Use/Last 30 Days : No Tobacco Use/Last 12 months : No LILIBETH BENSON LPN 02/15/2017 12:24 CDT Caffeine Use Grid Caffeine Use : Current Type : Soft drinks Frequency : Daily Amount : regular 1-2 cans daily LILIBETH BENSON LPN 02/15/2017 12:24 CDT Source: [employer] Document Id: [id number]!35 documented in this encounter Plan of Treatment Upcoming Encounters Date Type Specialty Care Team Description 08/17/2022 Procedure visit Neurology Marina Winter M.D., M.P.H. [address] [phone] (Wo rk) Scheduled Procedures Name Priority Associated Diagnoses Date/Time LIFT THIGH Excessive And Redundant Skin And Subcutaneous Tissue documented as of this encounter Visit Diagnoses Not on filedocumented in this encounter Additional Health Concerns Assessment Noted Time PHQ-9 Depression Total Score: 9 12/27/2016 10:29 AM CS T documented as of this encounter
--- OUTSIDE RECORDS SUMMARY | 2022-07-24 15:14 | XMS_ITS | Encounter Summary ---
:1985 Author Organization [facility] Address [address] [place] [address] Care Team Providers Name Role Phone Unavailable Primary Care Provider Unavailable Encounter Details Date Type Department Care Team Description 11/24/2016 Hospital Encounter HX [facility] Ranjit Lee M.D. [address], [place] [phone] (Wo rk) Social History [...] 03/29/2020 relatives? How often do you attend jewish or buddhism Never 07/04/2019 services? Do you belong to any clubs or organizations such as No 07/04/2019 jewish groups, unions, fraternal or athletic groups, or [...] at Date Recorded Female 10/16/2018 10:53 AM LEGAL INVESTIGATOR documented as of this encounter Last Filed Vital Signs Vital Sign Reading Time Taken Comments Blood Pressure 130/64 11/24/2016 2:38 PM LEGAL INVESTIGATOR Pulse - - Temperature - - Respiratory Rate - - Oxygen Saturation - - Inhaled Oxygen Concentration - - Weight 127 kg (279 lb 1.6 oz) 11/24/2016 2:38 PM LEGAL INVESTIGATOR Height 164 cm (5' 4.57) 11/24/2016 2:38 PM LEGAL INVESTIGATOR Body Mass Index 47.07 11/24/2016 2:38 PM LEGAL INVESTIGATOR documented in this encounter Progress Notes Cassie Melissa M.D. - 11/24/2016 1:49 PM CST [id number] CHIEF COMPLAINT/REASON FOR VISIT OB followup. HISTORY OF PRESENT ILLNESS Nancy is a 31-year-old 5, para 3-0-1-3 female at 37+ 3 weeks by last menstrual period consistent with 7+1 week ultrasound who presents for OB followup today. Nancy reports that she continues to have contractions. She [facility] for this since I saw her last but bythe time she got there her contractions had stopped. Otherwise she is uncomfortable related to the but has no other complaints. She reports decreased movement over the last several days. She denies any vaginal bleeding or leakage of fluid. She has GDM-A1 and her fasting sugars have ranged 76 to 98 though most of them have been less than 90. She did not check her breakfast postprandials in the last week. Her lunch postprandials have ranged 87 to 128 and dinner postprandials have ranged 92 to 116 with one isolated 124. She reports that her mood is stable but she does believe she is going to need something in the period to treat her anxiety and depression. She has an appointment scheduled with Mental Health in December and reports that she could not get in any sooner. MEDICATIONS See medication list updated in the EMR today. ALLERGIES See allergy list updated in the EMR today. SYSTEMS REVIEW GENERAL: No fevers, chills, fatigue, unintentional weight loss or weight gain. HEENT: Positive for changes in vision. No changes in hearing, no sore throat or nasal congestion. CARDIOVASCULAR: No chestpain, irregular heartbeat or racing heart. RESPIRATORY: No shortness of breath, cough or wheeze. GASTROINTESTINAL: Positive for nausea, vomiting, constipation and abdominal pain related to . GENITOURINARY: Positive for leaking urine due to . No pain or burning with urination, no irregular vaginal bleeding, heavy periods, painful periods, abnormal vaginal discharge, leaking stool or gas. SKIN: No rashes or skin lesions. BREASTS: Positive for discharge from the nipples related to preg kati. No masses or lumps. NEUROLOGIC: Positive for difficulty with memory. No numbness, tingling, falls. PSYCHIATRIC: Positive for anxiety, depression and difficulty sleeping. ENDOCRINE: Positive for hair loss. No heat intolerance, cold intolerance, excessive thirst. COMPLICATIONS OF See high-risk factors section on the OB flow sheet scanned into the EMR and updated today. VITAL SIGNS See results review section updated in the EMR today. PHYSICAL EXAMINATION See OB flow sheet scanned into the EMR updated today. IMPRESSION/REPORT/PLAN A 31-year-old 5, para 3-0-1-3 female at 37+3 weeks by last menstrual period consistent with 7+1 week ultrasound who presents for OB followup today. 1. care: No specific issues were addressed today. 2. contractions: She continues to have these but has had no cervical change with the contractions. If she were to have cervical change we would proceed with section. 3. Gestational diabetes mellitus A1: The majority of her fasting sugars are less than 90. She has not been checking breakfast postprandials regularly but her lunch and dinner postprandials are almost all less than 120. At this point we will continue to monitor these and not start her on any medicationfor treatment. 4. History of prior section x3: She is currently scheduled for planned section on 12/05/2016. 5. Major depressive disorder: She is not currently on medication for this. I will continue to followthis closely as the progresses and if her symptoms worsen we will discussed treatment options. She did report today that she would like to start on something immediately and she was on Effexor 150 mg by mouth daily in the past and that worked well for her. We will plan to start that in the hospital. 6. History of herpes simplex virus-2: I have recommended prophylaxis and discussed the risks and benefits of that with her. She realizes that the chance of a vaginal delivery is fairly low but if she had lesions at that time the baby could be infected. She also has not had an outbreak in several years. At this point she elects not to go ahead with prophylaxis though I have offered her a prescription for this in the past. 7. Size greater than dates: Ultrasound performed on 10/27/2015 showed growth at the 75th percentile.Her fundal height has been stable since that time and not increasing out of proportion to what it should be based on her size and prior measurements. If her fundal height were to increase out of proportion to this I would consider growth ultrasound closer to delivery. 8. History of preeclampsia: No current symptoms. Blood pressures continue to be normal though she did have 1 elevated blood pressure that was in the 140s on Labor and Delivery at some point. She has not had a second abnormal blood pressure. She was treated with magnesium sulfate due to her preeclampsia with her 4th . Due to this, baseline HELLP labs and 24-hour urine were ordered and were normal. 9. Decreased movement: NST was performed today and was reactive. 10. Followup: One week. Cassie Melissa M.D./pepe Electronically Signed By: CASSIE MELISSA MD On: 12/05/2016 08:48 PM Source: [facility] MHSDOLBEYNONRADSYS Document Id: [id number] L INVESTIGATOR documented in this encounter Procedure Notes Tonya العلي LRodrigoP.NRodrigo - 11/24/2016 3:20 PM CST Urine Dipstick Urine Dipstick Entered On: 11/24/2016 15:20 LEGAL INVESTIGATOR Performed On: 11/24/2016 15:20 LEGAL INVESTIGATOR by TONYA العلي LPN Urine Dipstick UA Color POC : Yellow UA Appear POC : Clear UA Protein POC : Trace UA Glucose POC : Negative TONYA العلي LPN - 11/24/2016 15:20 LEGAL INVESTIGATOR Source: [facility] POWERCHART Document Id: [id number] LEGAL INVESTIGATOR!6 L INVESTIGATOR Cassie Melissa M.D. - 11/24/2016 12:00 AM CST 2RPT NONSTRESS TEST PROCEDURE NOTE INDICATION A 31-year-old 5, para 3-0-1-3 female at 37 + 3 weeks by last menstrual period, consistent with 7 + 1 week ultrasound who presents for OB followup today and described decreased movement. Due to this, NST was recommended. PROCEDURE heart tones: Baseline 150, moderate variability, reactive, no decelerations. Tocometer: One contraction in 55 minutes on the monitor. IMPRESSION Reactive nonstress test (NST). Cassie Melissa M.D./israel Electronically Signed By: CASSIE MELISSA MD On: 12/05/2016 08:41 PM Source: [facility] MHSDOLBEYNONRADSYS Document Id: [id number] L INVESTIGATOR documented in this encounter Miscellaneous Notes Miscellaneous - Cassie Melissa M.D. - 11/24/2016 5:42 PM CST Ambulatory Patient Summary [address] [id number] Visit Information Name: ALAN, NANCY ELIZABETH [facility] Number: [id number] Current Date: 11/24/2016 17:42:16 Physicians Attending Provider: CASSIE MELISSA MD Primary Care Provider: MAILE ZARATE MD NANCY PHILLIPS has been given the [...] Take Indications/Special Instructions/Comments/Notes for Patient Medication Changes/Routing multivitamin, ( Multivitamins) 1 TAB, Oral, once a day Stop Taking the Following Medications: Medication list as of 11-24-16 17:42 Attention: If you have any medications at home that are not on this list, DO NOT take them until youcontact your provider for clarification. Give a copy of your medication list to your primary care provider. Update your medication list any time medications or doses are changed and carry your medication list at all times in case of emergency. Electronically Signed By: CASSIE MELISSA MD Signed On:24-NOV-2016 17:42:13 Your Allergies & Intolerances Substance Reaction Symptoms [...] Your Upcoming Appointments Date Time Location Provider 12/01/2016 13:00 [facility] REMEDIATION CONSULTANT Cassie Melissa MD 12/27/2016 09:45 [facility] D[facility]h [facility], Nicki Zuniga Attention: Contact your local Clinic if further [...] if you dont have one. Go to [email or web address] and click on Create Your Account. Then, follow the directions to complete the online form. Youll be asked for your [facility] number which you can find at the top of this document. Your Goals/Additional instructions: Source: [facility] POWERCHART Document Id: [id number] L INVESTIGATOR Miscellaneous - Cassie Melissa M.D. - 11/24/2016 5:42 PM CST Ambulatory Discharge Medication List [address] [id number] Visit Information Name: NANCY PHILLIPS [facility] Number: [id number] Current Date: 11/24/2016 17:42:15 Attending Provider: CASSIE MELISSA MD Primary Care Provider: MAILE ZARATE MD NANCY PHILLIPS has been given the following list of medications: Your Medications It is important to take your medications as directed. Use a pill box or chart to help remind you to take your medications. Please let your doctor or nurse know if you have problems taking your medications. Medication/Strength How to Take Indications/Special Instructions/Comments/Notes for Patient Medication Changes/Routing multivitamin, ( Multivitamins) 1 TAB, Oral, once a day Stop Taking the Following Medications: Medication list as of 11-24-16 17:42 Attention: If you have any medications at home that are not on this list, DO NOT take them until youcontact your provider for clarification. Give a copy of your medication list to your primary care provider. Update your medication list any time medications or doses are changed and carry your medication list at all times in case of emergency. Electronically Signed By: CASSIE MELISSA MD Signed On:24-NOV-2016 17:42:13 Additional Information: Source: [facility] POWERCHART Document Id: [id number] L INVESTIGATOR Telephone Encounter - Tonya العلي LRodrigoPRodrigoN. - 11/24/2016 4:58 PM LEGAL INVESTIGATOR *Phone Message Document Contains Addenda Addendum by CASSIE MELISSA MD on November 24, 2016 17:25:41 LEGAL INVESTIGATOR Noted From: TONYA العلي LPN ( Obstetrics/Gynecology Nurse) To: CASSIE MELISSA MD; Sent: 11/24/2016 16:58:46 LEGAL INVESTIGATOR Subject: *Phone Message Caller is: ( X ) Patient ( ) Mother ( ) Father ( ) Spouse ( ) Daughter ( ) Son ( ) Pharmacy ( ) Other: Physician: Patient MRN #: Reason for Call: Patient called and stated that she was on Effexor 150mg prior to . Message: Advice/Action: Source used: ( ) Verbalizes understanding [...] back cell phone number ( ) Source: [facility] HibernaterCHART Document Id: [id number] Miscellaneous - Tonya العلي L.P.N. - 11/24/2016 2:59 PM CST Bellman Documentation Bellman Documentation Entered On: 11/24/2016 15:00 LEGAL INVESTIGATOR Performed On: 11/24/2016 14:59 LEGAL INVESTIGATOR by TONYA العلي LPN Bellman Documentation Exam/Procedure Performed : Cervical check CD Bellman Present : Yes CD Bellman Name : Susana العلي LPN Present in Room During Exam/Procedure : Other: Sister, nadeem TONYA العلي LPN - 11/24/2016 14:59 LEGAL INVESTIGATOR Source: [facility] POWERCHART Document Id: [id number] LEGAL INVESTIGATOR!6 L INVESTIGATOR Miscellaneous - Tonya العلي L.P.N. - 11/24/2016 2:38 PM CST Adult Clarifier Intake/History Adult Clarifier Intake/History Entered On: 11/24/2016 14:40 LEGAL INVESTIGATOR Performed On: 11/24/2016 14:38 LEGAL INVESTIGATOR by TONYA العلي LPN Intake Chief Complaint : OBFU 37 + 3 weeks LMP Date : 03/07/2016 Systolic Blood Pressure : 130 mmHg Diastolic Blood Pressure : 64 mmHg NIBP Mean : 86 mmHg BP Location : Right upper extremity Blood Pressure Cuff Size : Large Height : 164 cm(Converted to: 5 ft 5 inch(es), 65 inch(es)) Actual Weight : 126.6 kg(Converted to: 279 lb 2 oz) Weight Source : Standing scale Dosing Weight Clinic : 126.6 kg Clinic BSA : 2.4 Body Mass Index : 47.07 kg/m2 TONYA العلي LPN - 11/24/2016 14:38 LEGAL INVESTIGATOR General Info Languages : Citizen Of [place] Is Patient Female and 13-50 no hysterectomy : Yes Status : Confirmed positive Are you ? : No TONYA العلي LPN - 11/24/2016 14:38 LEGAL INVESTIGATOR Subjective Pain Symptoms : No TONYA العلي LPN - 11/24/2016 14:38 LEGAL INVESTIGATOR Dependent Habits Exposure to Tobacco Smoke : Other: never Smoking Status : Never smoker Tobacco 2A : No Tobacco Use/Currently Using : No Tobacco Use/Last 30 Days : No Tobacco Use/Last 12 months : No TONYA العلي LPN - 11/24/2016 14:38 LEGAL INVESTIGATOR Caffeine Use Grid Caffeine Use : Current Type : Soft drinks Frequency : Daily Amount : regular 1-2 cans daily TONYA العلي LPN - 11/24/2016 14:38 LEGAL INVESTIGATOR Source: [facility] POWERCHART Document Id: [id number] LEGAL INVESTIGATOR!35 L INVESTIGATOR Telephone Encounter - Conversion, Historical Provider Ser - 11/02/2016 9:23 AM CST *Phone Message Document Contains Addenda Addendum by TONYA العلي LPN on November 02, 2016 13:00:50 LEGAL INVESTIGATOR Patient notified, she was added to the schedule. Addendum by CASSIE MELISSA MD on November 02, 2016 12:40:41 LEGAL INVESTIGATOR From: CASSIE MELISSA MD To: FB Obstetrics/Gynecology Nurse; Sent: 11/02/2016 12:40:41 LEGAL INVESTIGATOR Subject: RE: *Phone Message Please have her come here as soon as she is able and I will see her. Addendum by RADHA HAMMOND RN on November 02, 2016 11:28:25 LEGAL INVESTIGATOR From: RADHA HAMMOND RN ( Obstetrics/Gynecology Nurse) To: CASSIE MELISSA MD; Sent: 11/02/2016 11:28:25 LEGAL INVESTIGATOR Subject: FW: *Phone Message Spoke with Nancy. Was in [facility] last night having painful contractions q 3-5 minutes. Was there for 3 hours, no cervical change made. Was given Terbutaline IM to decrease ctx. She is still winter q 3-5 minutes though the ctx are less painful. She wants to know if she should do at this point. She is drinking lots of liquids and resting but ctx are continuing. She is scheduled for an appt with you on 11/09/2016. She wants to know if she should go back to [place], or if you would like to see her sooner. Denies any bleeding or leaking of fluids. Positive movement. States shehad a lot of mucousy discharge on Sunday but has had no other abnormal discharge since. From: RAZ WARREN ([facility] Luggage Repairer) To: Obstetrics/Gynecology Nurse; Sent: 11/02/2016 09:23:04 LEGAL INVESTIGATOR Subject: *Phone Message Caller is: ( x ) Patient ( ) Mother ( ) Father ( ) Spouse ( ) Daughter ( ) Son ( ) Pharmacy ( ) Other: Physician: Emmy Patient MRN #: Reason for Call: Message: Nancy is wanting to talk to the nurse about her contractions she was having last night. She stated that they were 3-5 appart. She has questions about her next appt. Please call her back at [phone] Advice/Action: Source used: ( ) Verbalizes understanding [...] back cell phone number ( ) Source: [facility] POWERCHART Document Id: [id number] documented in this encounter Plan of Treatment Upcoming Encounters Date Type Specialty Care Team Description 08/17/2022 Procedure visit Neurology Marina Winter M.D., M.P.H. [address] [phone] (Wo rk) Scheduled Procedures Name Priority Associated Diagnoses Date/Time LIFT THIGH Excessive And Redundant Skin And Subcutaneous Tissue documented as of this encounter Procedures Procedure Name Priority Date/Time Associated Comments Diagnosis DIPSTICK, POCT, U Routine 11/24/2016 3:20 PM Resu lts for this (NURSING) INTERFACED LEGAL INVESTIGATOR procedu re are in the results section. documented in this encounter Results Dipstick, POCT, Urine (nursing) (11/24/2016 3:20 PM LEGAL INVESTIGATOR) Analysis Performed At [facility] Time Signature Color Yellow POWERCHART Appearance Clear POWERCHART Protein, POCT, Trace POWERCHART U Glucose, POCT, Negative POWERCHART U Specimen (Source) Anatomical Collection Method Collection Time Re ceived Time Location / / Volume Laterality 11/24/2016 3:20 PM LEGAL INVESTIGATOR Cassie Melissa M.D. LAB POCT ORDERABLES - DEVICE Performing Organization Address City/State/ZIP Code Phon e Number POWERCHART documented in this encounter Visit Diagnoses Not on filedocumented in this encounter Additional Health Concerns Assessment Noted Time PHQ-9 Depression Total Score: 13 06/14/2015 3:56 PM CD T documented as of this encounter
--- OUTSIDE RECORDS SUMMARY | 2022-07-24 15:14 | XMS_ITS | Encounter Summary ---
:1985 Author Organization [facility] Address [address] [place] [address] Care Team Providers Name Role Phone Unavailable Primary Care Provider Unavailable Encounter Details Date Type Department Care Team Description 01/24/2017 Hospital Encounter HX [facility] Ranjit Kim M.D. [address] [place], [place] [phone] (Wo rk) Social History [...] How often do you attend orthodox or muslim Never 07/04/2019 services? 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/2018 10:53 AM POLICE MAGISTRATE documented as of this encounter Last Filed Vital Signs Vital Sign Reading Time Taken Comments Blood Pressure - - Pulse - - Temperature - - Respiratory Rate - - Oxygen Saturation - - Inhaled Oxygen Concentration - - Weight - - Height 164 cm (5' 4.57) 01/24/2017 1:07 PM CDT Body Mass Index - - documented in this encounter Medications at Time of Discharge Medication Sig Dispensed Refills Start Date End Date venlafaxine XR (EFFEXOR Take 1 capsule by 0 12/2703/27/2018 XR) 75 mg 24 hr capsule mouth daily. documented as of this encounter Plan of Treatment Upcoming Encounters Date Type Specialty Care Team Description 08/17/2022 Procedure visit Neurology Marina Winter M.D., M.P.H. [address] [phone] (Wo rk) Scheduled Procedures Name Priority Associated Diagnoses Date/Time LIFT THIGH Excessive And Redundant Skin And Subcutaneous Tissue documented as of this encounter Visit Diagnoses Not on filedocumented in this encounter Additional Health Concerns Assessment Noted Time PHQ-9 Depression Total Score: 9 12/27/2016 10:29 AM CS T documented as of this encounter
--- OUTSIDE RECORDS SUMMARY | 2022-07-24 15:14 | XMS_ITS | Encounter Summary ---
:[address] [facility] Address [address] [place] [address] Care Team Providers Name Role Phone Unavailable Primary Care Provider Unavailable Encounter Details Date Type Department Care Team Description 12/27/2016 Hospital Encounter HX [facility] Meche Montiel M.D. [address] [place] [address] (Wo rk) Social History Tobacco [...] 03/29/2020 relatives? How often do you attend methodist or yazdanism Never 07/04/2019 services? Do you belong to any clubs or organizations such as No 07/04/2019 methodist groups, unions, fraternal or athletic groups, or [...] at Date Recorded Female 10/16/2018 10:53 AM DINING ROOM HOSTESS documented as of this encounter Last Filed Vital Signs Vital Sign Reading Time Taken Comments Blood Pressure 120/82 12/27/2016 9:37 AM DINING ROOM HOSTESS Pulse 78 12/27/2016 9:37 AM DINING ROOM HOSTESS Temperature - - Respiratory Rate 16 12/27/2016 9:37 AM DINING ROOM HOSTESS Oxygen Saturation - - Inhaled Oxygen Concentration - - Weight 119 kg (261 lb 14.5 oz) 12/27/2016 9:37 AM DINING ROOM HOSTESS Height 164 cm (5' 4.57) 12/27/2016 9:37 AM DINING ROOM HOSTESS Body Mass Index 44.17 12/27/2016 9:37 AM DINING ROOM HOSTESS documented in this encounter Medications at Time of Discharge Medication Sig Dispensed Refills Start Date End Date venlafaxine XR (EFFEXOR Take 1 capsule by 0 12/2703/27/2018 XR) 75 mg 24 hr capsule mouth daily. documented as of this encounter Progress Notes Annemarie Montiel M.D. - 12/27/2016 9:28 AM CST [id number] CHIEF COMPLAINT / REASON FOR VISIT Medication review. HISTORY OF PRESENT ILLNESS Nancy is a 31-year-old female who presents to the clinic today for a medication review. The patient had a repeat in November. The baby had to be transferred to a different hospital due to respiratory distress. Today Nancy reports that after that scare, everything went well. She and the baby are now doing better. Nancy is not . The patient reports that post-delivery, the hospital gave her Effexor 150 mg and this made her very groggy and she felt sluggish. She then was switched to 75 mg and reports that her mood has been very stable on this dosage. Nancy reports she doesneed a refill for this prescription today. The patient has used phentermine in the past and she would like restart this medication. Her goal isto get down to 210 pounds or lower. We reviewed that this is realistic goal. We also discussed that with the phentermine, healthy diet and exercise is still important in combination with the medication. CURRENT MEDICATIONS Ibuprofen 600 mg oral tablet, 1 tablet every 6 hours as needed. Multivitamins, 1 tab daily. Naproxen 250 mg oral tablet, 1 tablet 2 times daily as needed for pain. Take this with food. Effexor XR 75 mg daily. ALLERGIES No known drug allergies. VITAL SIGNS HEIGHT: 164 cm. WEIGHT: 118.8 kg. BMI: 44.17 kg/m2. PULSE: 78 /min. RES RATE: 16 /min. SYSTOLIC: 120 mmHg. DIASTOLIC: 82 mmHg. PHYSICAL EXAMINATION GENERAL: Alert, oriented obese female, well developed and well nourished. Non-distressed. SKIN: Intact. No rash or lesion on exposed skin. No ecchymosis. ENT: TMs are clear, normal light reflex and no effusion. Oropharynx shows mucous membranes are moistand pink. Tonsils are not hypertrophic. Neck is supple. HEART: Regular rate and rhythm. Normal S1 and S2. No murmur or bruit. LUNGS: Clear. No wheezes or crackles. Normal inspiratory to expiratory ratio. ABDOMEN: Soft, nontender. No mass. EXTREMITIES: No edema. MENTAL: Appropriate mood and affect. Normal judgement and insight. PHQ9 score of 9. NEURO: Cranial nerves II-XII grossly intact. No focal deficit. IMPRESSION / REPORT / PLAN 1. Morbid obesity with desire for weight loss. 2. Major depression, currently under adequate control. Plan: 1. Start phentermine 37.5 mg oral tablet daily. 6 week supply was given today. Return for Nurse BP and weight check in 6 weeks. Followup with me in 3 months. We discussed the importance of physical activity and drinking ample amounts of water to help with her weight loss efforts. We discussed that if she plateaus on phentermine, we can add Topamax at a future visit. 2. Continue Effexor XR 75 oral capsule, extended release, 1 cap daily. Discussed that if she finds aperiod when her depression is getting worse, she can contact me through the online protal about increasing back to 150 mg. This document serves as a record of services personally performed by Annemarie Montiel MD. It was created on their behalf by Reggie Cohen, a trained biomedical engineering technologist. The creation of this record is basedon the scribe's personal observations and the provider's statements to them. This document has been c hecked and approved by the attending provider. Annemarie Montiel M.D./lesley Electronically Signed By: ANNEMARIE MONTIEL MD On: 12/30/2016 02:03 PM Source: [facility] Document Id: [id number] NG ROOM HOSTESS documented in this encounter Miscellaneous Notes Miscellaneous - Lisa Andrade C.M.A. - 02/05/2017 3:15 PM CDT Med Management Document Contains Addenda Addendum by OLIVA WRIGHT CMA on February 06, 2017 10:40:22 CDT Patient stated that she has an appt with [facility] tomorrow. Addendum by BRENT AGUILAR on February 06, 2017 10:27:21 CDT Patient returning call to nurse, please call back [phone] Addendum by OLIVA WRIGHT CMA on February 06, 2017 09:44:48 CDT Left message to call back. Addendum by ANNEMARIE MONTIEL MD on February 05, 2017 19:16:28 CDT From: ANNEMARIE MONTIEL MD To: [facility] 2W Nurse; Sent: 02/05/2017 19:16:28 CDT Subject: RE: Med Management Needs weight and BP check via shot clinic. From: LISA ANDRADE CMA ([facility] 2W Nurse) To: ANNEMARIE MONTIEL MD; Sent: 02/05/2017 15:15:28 CDT Subject: Med Management On hold pending signature Order:phentermine (phentermine 37.5 mg oral tablet) 1 tab(s) PO Daily Qty: 42 tab(s) Refills: 0 Substitutions Allowed Print - [id number] Caller is: ( ) Patient ( ) Mother ( ) Father ( ) Spouse ( ) Daughter ( ) Son ( ) Pharmacy ( ) Other: Provider: jeyson Pharmacy: [facility] [place] Name of Medications Needing Refill: Phentermine 37.5 mg Last Refill Date: 12/27/2016 Additional Information: Last / Future Appointment: last apt. 12/27/2016 future apt. 03/27/2017 Disposition: ( x ) Send to Pharmacy ( ) Call to Pharmacy ( ) Patient will scrap picker Script ( ) Mail Rxto Patient Source: [facility] POWERCHART Document Id: [id number] Electronically signed by Maria R [facility] Oyster Shucker [id number] at 04/17/2017 1:16 AM CDT Miscellaneous - Oliva Wright, C.M.A. - 12/27/2016 10:29 AM CST PHQ-9 PHQ-9 Entered On: 12/27/2016 10:29 DINING ROOM HOSTESS Performed On: 12/27/2016 10:29 DINING ROOM HOSTESS by OLIVA WRIGHT [facility] PHQ-9 Little interest or pleasure in doing things : Several days Feeling down, depressed, or hopeless : Several days Trouble falling or staying asleep, or sleeping too much : Several days Feeling tired or having little energy : Several days Poor appetite or overeating : More than half the days Feeling bad about yourself or that you are a failure : Several days Trouble concentrating on things : More than half the days Moving or speaking slowly; restless or fidgety : Not at all Thoughts that you would be better off /hurting self : Not at all PHQ-9 Calculated Score : 9 Problems make work, home, or dealing with others : Somewhat difficult OLIVA WRIGHT [facility] - 12/27/2016 10:29 DINING ROOM HOSTESS [facility] Document Id: [id number] DINING ROOM HOSTESS!13 NG ROOM HOSTESS [place] - Annemarie Montiel M.D. - 12/27/2016 10:22 AM CST Ambulatory Patient Summary [address] [id number] Visit Information Name: NANCY PHILLIPS [facility] Number: [id number] Current Date: 12/27/2016 10:22:24 Physicians Attending Provider: ANNEMARIE MONTIEL MD Primary [...] Take Indications/Special Instructions/Comments/Notes for Patient Medication Changes/Routing naproxen (naproxen 250 mg oral tablet) 1 Tablet(s), Oral, two times a day as needed for pain with food phentermine (phentermine 37.5 mg oral tablet) 1 Tablet(s), Oral, once a day [facility] (Effexor XR 75 mg oral capsule, extended release) 1 cap, Oral, once a day Routed to [facility] [address] [place] [address] Stop Taking the Following Medications: ibuprofen (ibuprofen 600 mg oral tablet) multivitamin, ( Multivitamins) Medication list as of 12-27-16 10:22 Attention: If you have any medications at [...] Electronically Signed By: ANNEMARIE MONTIEL MD Signed On:27-DEC-2016 10:22:15 Your Allergies & Intolerances Substance Reaction Symptoms [...] Your Upcoming Appointments Date Time Location Provider 01/11/2017 13:15 [facility] ENVIRONMENTAL HEALTH TECHNICIAN Cassie Booth MD Attention: Contact your local Clinic if [...] if you dont have one. Go to [email or web address] and click on Create Your Account. Then, follow the directions to complete the online form. Youll be asked for your [facility] number which you can find at the top of this document. Your Goals/Additional instructions: Source: [facility] POWERCHART Document Id: [id number] NG ROOM HOSTESS Miscellaneous - Annemarie Montiel M.D. - 12/27/2016 10:22 AM CST Ambulatory Discharge Medication List [address] [id number] Visit Information Name: NANCY PHILLIPS [facility] Number: [id number] Current Date: 12/27/2016 10:22:23 Attending Provider: ANNEMARIE MNOTIEL MD Primary Care Provider: ANNEMARIE MONTIEL MD NANCY PHILLIPSE has been given the following list of medications: Your Medications It is important to take your medications as directed. Use a pill box or chart to help remind you to take your medications. Please let your doctor or nurse know if you have problems taking your medications. Medication/Strength How to Take Indications/Special Instructions/Comments/Notes for Patient Medication Changes/Routing naproxen (naproxen 250 mg oral tablet) 1 Tablet(s), Oral, two times a day as needed for pain with food phentermine (phentermine 37.5 mg oral tablet) 1 Tablet(s), Oral, once a day New Routed to [facility] venlafaxine (Effexor XR 75 mg oral capsule, extended release) 1 cap, Oral, once a day [facility] [address] [place] [address] Stop Taking the Following Medications: ibuprofen (ibuprofen 600 mg oral tablet) multivitamin, ( Multivitamins) Medication list as of 12-27-16 10:22 Attention: If you have any medications at [...] Electronically Signed By: ANNEMARIE MONTIEL MD Signed On:27-DEC-2016 10:22:15 Additional Information: Source: [facility] POWERCHART Document Id: [id number] NG ROOM HOSTESS Miscellaneous - Oliva Wright, C.M.ARodrigo - 12/27/2016 9:37 AM CST Adult Collection Technician Intake/History Adult Collection Technician Intake/History Entered On: 12/27/2016 9:39 DINING ROOM HOSTESS Performed On: 12/27/2016 9:37 DINING ROOM HOSTESS by OLIVA WRIGHT [facility] Intake Chief Complaint : med check Peripheral Pulse Rate : 78 /min Respiratory Rate : 16 /min Heart Rhythm : Regular Systolic Blood Pressure : 120 mmHg Diastolic Blood Pressure : 82 mmHg NIBP Mean : 95 mmHg BP Location : Right upper extremity Blood Pressure Cuff Size : Large Height : 164 cm(Converted to: 5 ft 5 inch(es), 65 inch(es)) Actual Weight : 118.8 kg(Converted to: 261 lb 15 oz) Weight Source : Standing scale Dosing Weight Clinic : 118.8 kg Clinic BSA : 2.33 Body Mass Index : 44.17 kg/m2 OLIVA WRIGHT [facility] - 12/27/2016 9:37 DINING ROOM HOSTESS General Info Information Given By : Patient Languages : Setswana Is Patient Female and 13-50 no hysterectomy : No OLIVA WRIGHT [facility] - 12/27/2016 9:37 DINING ROOM HOSTESS Subjective Pain Symptoms : No OLIVA WRIGHT [facility] - 12/27/2016 9:37 DINING ROOM HOSTESS Dependent Habits Exposure to Tobacco Smoke : Other: never Smoking Status : Never smoker Tobacco 2A : No Tobacco Use/Currently Using : No Tobacco Use/Last 30 Days : No Tobacco Use/Last 12 months : No Alcohol Use : No OLIVA WRIGHT [facility] 12/27/2016 9:37 DINING ROOM HOSTESS Caffeine Use Grid Caffeine Use : Current Type : Soft drinks Frequency : Daily Amount : regular 1-2 cans daily OLIVA WRIGHT [facility] 12/27/2016 9:37 DINING ROOM HOSTESS Source: [facility] Pets are family too Document Id: [id number] DINING ROOM HOSTESS!37 NG ROOM HOSTESS Miscellaneous - Oliva Wright C.M.ARodrigo - 12/27/2016 9:34 AM CST Health Assessment Health Assessment Entered On: 12/27/2016 9:35 DINING ROOM HOSTESS Performed On: 12/27/2016 9:34 DINING ROOM HOSTESS by OLIVA WRIGHT [facility] Health Assessment Complete Health Assessment Complete or Modified : Annual Health Assessment Annual Health Assessment Completed : Yes OLIVA WRIGHT [facility] 12/27/2016 9:34 DINING ROOM HOSTESS Nutrition Nutrition Risk Factors by History Adult : None OLIVA WRIGHT [facility] 12/27/2016 9:34 DINING ROOM HOSTESS Functional Current Daily Living Assistance : OLIVA Lopez [facility] 12/27/2016 9:34 DINING ROOM HOSTESS Dependent Habits Exposure to Tobacco Smoke : Other: never Smoking Status : Never smoker Tobacco 2A : No Tobacco Use/Currently Using : No Tobacco Use/Last 30 Days : No Tobacco Use/Last 12 months : No Alcohol Use : No OLIVA WRIGHT [facility] 12/27/2016 9:34 DINING ROOM HOSTESS Caffeine Use Grid Caffeine Use : Current Type : Soft drinks Frequency : Daily Amount : regular 1-2 cans daily OLIVA WRIGHT [facility] 12/27/2016 9:34 DINING ROOM HOSTESS Psychosocial Domestic Abuse Concerns : None Behavioral Health Screen/Safety Assmt : No Mandaen Preference : OLIVA Taylor [facility] 12/27/2016 9:34 DINING ROOM HOSTESS Advance Directive Advanced Directives : No Advance Directive Additional Information : No OLIVA WRIGHT [facility] 12/27/2016 9:34 DINING ROOM HOSTESS Educ Needs Learning Style Preference Adult Grid Patient : Verbal explanation, Printed materials Family : OLIVA Lopez CMA - 12/27/2016 9:34 DINING ROOM HOSTESS Source: [facility] POWERCHART Document Id: [id number] DINING ROOM HOSTESS!33 NG ROOM HOSTESS documented in this encounter Plan of Treatment Upcoming Encounters Date Type Specialty Care Team Description 08/17/2022 Procedure visit Neurology Marina Winter M.D., M.P.H. [address] [phone] (Wo rk) Scheduled Procedures Name Priority Associated Diagnoses Date/Time LIFT THIGH Excessive And Redundant Skin And Subcutaneous Tissue documented as of this encounter Visit Diagnoses Not on filedocumented in this encounter Additional Health Concerns Assessment Noted Time PHQ-9 Depression Total Score: 9 12/27/2016 10:29 AM CS T documented as of this encounter
--- OUTSIDE RECORDS SUMMARY | 2022-07-24 15:14 | XMS_ITS | Encounter Summary ---
:1985 Author Organization [facility] Address [address] [place] [address] Care Team Providers Name Role Phone Unavailable Primary Care Provider Unavailable Encounter Details Date Type Department Care Team Description 12/01/2016 Hospital Encounter HX [facility] Ranjit Lee M.D. [address] [place], [place] [phone] (Wo rk) Social History [...] How often do you attend episcopal or hinduism Never 07/04/2019 services? 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 - 12/01/2016 12:45 PM CST [id number] CHIEF COMPLAINT/REASON FOR VISIT OB followup and preoperative history and physical. HISTORY OF PRESENT ILLNESS Nancy is a 31-year-old, 5, para 3-0-1-3 female at 38+3 weeks by last menstrual period, consistent with 7+1 week ultrasound, who presents for OB followup today and preoperative history and physical. Nancy has GDM A1, and her control has been borderline. She brought her sugar log with her today, and her fasting sugars have ranged 73 to 94 with most of them less than 90, lunch postprandials have ranged 121 to 126, and dinner postprandials have ranged 100 to 142. She has not been checking her breakfast postprandials. She reports that the baby was not moving until she got here for her appointment. Otherwise, she had not felt it move since last evening. She is also having contractions that wiseman ve slowed since she came in today. She denies vaginal bleeding and leakage of fluid recently, thoughjessika reports that 2 days ago she had 2 episodes of leaking of clear fluid. She reports that there wasno odor to it at that time. She does report a headache since about 9 p.m. last evening and some occasional vision changes that have been a longstanding issue for her. She denies any upper abdominal pain or increasing edema. MEDICATIONS vitamin 1 tab by mouth daily. ALLERGIES No known drug allergies. SYSTEMS REVIEW GENERAL: No fevers, chills, fatigue, unintentional weight loss or weight gain. HEENT: No changes in vision or hearing, no sore throat or nasal congestion. CARDIOVASCULAR: No chest pain, irregular heartbeat or racing heart. RESPIRATORY: No shortness of breath, cough or wheeze. GASTROINTESTINAL: No nausea, vomiting, diarrhea, constipation or abdominal pain. GENITOURINARY: No pain or burning with urination, no irregular vaginal bleeding, heavy periods, painful periods, abnormal vaginal discharge, leaking urine, leaking stool or gas. SKIN: No rashes or skin lesions. BREASTS: No masses or lumps, no discharge from the nipples. NEUROLOGIC: Positive for headache - see HPI. No difficulty with memory, numbne ss, tingling, falls. PSYCHIATRIC: No anxiety, depression, or difficulty sleeping. ENDOCRINE: No heatintolerance, cold intolerance, excessive thirst or hair loss. PAST MEDICAL/SURGICAL HISTORY PAST MEDICAL HISTORY: 1. Migraine headaches. 2. Major depressive disorder. 3. History of GDM A1 with this . 4. History of endometriosis. 5. History of pyelonephritis. 6. Morbid obesity. 7. History of genital herpes. PAST SURGICAL HISTORY: 1. Tonsillectomy and adenoidectomy. 2. Laparoscopic cholecystectomy. 3. section x3. 4. Jaw surgery. 5. Ovarian cystectomy via laparoscopy. 6. Laparotomy with removal of peritoneal adhesions. OBSTETRIC/GYNECOLOGIC HISTORY: 5, para 3-0-1-3 female status post 3 sections at 37+5, 38+4 and 40+0 weeks. The first was performed for arrest of descent. The second was performed for an active HSV lesion at the time of labor. She has a history of genital herpes and chlamydia that was treated, and she has not had an outbreak of genital herpes in the last several years. She has no history of abnormal Pap smears. SOCIAL HISTORY No tobacco, alcohol, or drug use. She denies any caffeine use. She is to her Samir and denies any concerns about abuse. She is a [id number] mom. FAMILY HISTORY Paternal grandfather and paternal grandmother with diabetes, father and grandmother with coronary artery disease, and mother and grandmother with hypertension. VITAL SIGNS Height 164 cm, weight 125.7 kg. Blood pressure 142/92 and on repeat 138/90. BMI 46.74 kg/m2. PHYSICAL EXAMINATION GENERAL: Well-nourished female in no acute distress. HEAD: Normocephalic, atraumatic. EENT: Vision and hearing grossly intact. HEART: Regular rate and rhythm. No murmurs, rubs, or gallops. CHEST: Clear to auscultation bilaterally. No wheezes or rales. ABDOMEN: Obese, gravid, nontender. Normoactive bowel sounds. Fundal height 47 cm. heart tones 150, fetus vertex by Tarik's. PELVIC: External genitalia with no lesions or abnormalities, normal pubic hair distribution. On bimanual examination, the cervix is 1 to 2 cm dilated/20% effaced/minus 2 station. LOWER EXTREMITIES: Nontender. No edema. SKIN: No rashes or lesions. NEUROLOGIC: Alert and oriented x3, reflexes 2+ at patellas, 1 beat of clonus bilaterally. IMPRESSION/REPORT/PLAN A 31-year-old 5, para 3-0-1-3 female at 38+3 weeks by last menstrual period consistent with 7+1 week ultrasound, who presents for obstetric followup and preoperative history and physical today. 1. care: No specific issues were addressed today. 2. contractions: The patient continues to have these, but she has not had significant cervical change with the contractions, so she is not in labor. 3. Elevated blood pressure today: The patient has a history of elevated blood pressures in the mild range in the past on labor and delivery. Even on repeat, her systolic remained at 90. Therefore, we will send her to the [facility] for serial blood pressure monitoring and urine protein-creatinine ratio and HELLP labs. If she has persistently elevated blood pressures higher than 140/90, she will meet criteria for gestational hypertension, and we will proceed with section today. She has a history of preeclampsia with her 4th and required magnesium sulfate with that . 4. Gestational diabetes mellitus A1: The majority of her fasting sugars continue to be less than 90,but her postprandials are higher. All of her lunch postprandials have been higher than 120, and her dinner postprandials have varied significantly. We will implement the gestational diabetes mellitus order set at the time of admission for labor. 5. Prior section x3: The patient desires repeat low transverse section. That is the recommendation. The risks and benefits of this were discussed with the patient today, and informed consent was obtained. If she meets criteria for gestational hypertension or preeclampsia, we will perform her section today. Otherwise, we will wait for 4 days. 6. Major depressive disorder: She is not currently on medication for this. I will continue to followthis closely. She will plan to start immediately on Effexor 150 mg by mouth daily at the time of delivery, and that has worked well for her in the past. 7. History of herpes simplex virus 2: We have discussed the option of prophylaxis and risks and benefits of that. At this time, she elects not to take Valtrex for prophylaxis for this. 8. Size greater than dates: Ultrasound performed on 10/27/2015 showed growth at the 75th percentile. 9. Decreased movement: NST will be performed on labor and delivery. 10. Preoperative evaluation: The patient is morbidly obese but otherwise young, healthy, and stable for surgery. We will obtain a CBC and type and screen at the time of admission for labor. Her last hemoglobin obtained on 10/13/2016 was stable at 12.7. 11. Followup: To Labor and Delivery today for monitoring and for section either today or in4 days. Cassie Melissa M.D./pepe Electronically Signed By: CASSIE MELISSA MD On: 12/01/2016 03:03 PM Source: [facility] MHSDOLBEYNONRADSYS Document Id: [id number] Y WORKER documented in this encounter Procedure Notes Tonya العلي L.P.N. - 12/01/2016 1:02 PM CST Urine Dipstick Urine Dipstick Entered On: 12/01/2016 13:03 SPRAY WORKER Performed On: 12/01/2016 13:02 SPRAY WORKER by TONYA العلي LPN Urine Dipstick UA Color POC : Yellow UA Appear POC : Clear UA Leuk POC : 1+ Small UA Nitrite POC : Negative UA Urobilinogen POC : 0.2 mg/dl UA Protein POC : 1+ (30 mg/dl) UA pH POC : 5.5 UA Blood POC : 1+ SMALL UA Spec Grav POC : 1.030 UA Ketones POC : Negative UA Bili POC : 1+ Small UA Glucose POC : Negative TONYA العلي LPN - 12/01/2016 13:02 SPRAY WORKER Source: [facility] POWERCHART Document Id: [id number] SPRAY WORKER!15 Y WORKER documented in this encounter Miscellaneous Notes Telephone Encounter - Conversion, Historical Provider Ser - 12/06/2016 11:33 AM CST *Phone Message/Dr. Hathaway Document Contains Addenda Addendum by KIT HATHAWAY MD on December 06, 2016 12:14:20 SPRAY WORKER From: KIT HATHAWAY MD To: Obstetrics/Gynecology Nurse; Sent: 12/06/2016 12:14:20 SPRAY WORKER Subject: RE: *Phone Message/Dr. Hathaway agree with this plan. Addendum by RADHA HAMMOND RN on December 06, 2016 11:56:36 SPRAY WORKER From: RADHA HAMMOND RN ( Obstetrics/Gynecology Nurse) To: KIT HATHAWAY MD; Sent: 12/06/2016 11:56:36 SPRAY WORKER Subject: FW: *Phone Message/Dr. Hathaway Spoke with Nancy. States she has swelling in her legs now that she is home. Denies any pain and says they look equal in size. Denies any areas of redness or warmth.. Advised that swelling can be verynormal after a csection, and should subside within several days. Nancy also states she has raised,red, blotchy areas on her abdomen and it has become very itchy. She says the blotches look like hives. Discussed possible allergens in environment. Advised that she can use hydrocortisone cream and take benedryl. She is scheduled for an appt tomorrow and instructed to keep this appt. Discussed anaphalaxis precautions. Advised that if she experiences any swelling of the tounge or throat, tingling or numbness in her mouth, wheezing, or difficulty breathing she should call 911 immediately. Nancy states understanding. I notified aNncy that I would be forwarding her message to the marketing operations analyst physician to see if he has any further advice. From: SANDRA DIETZ ( [place] [employer]) To: Obstetrics/Gynecology Nurse; Sent: 12/06/2016 11:33:01 SPRAY WORKER Subject: *Phone Message/Dr. Hathaway Caller is: ( x ) Patient ( ) Mother ( ) Father ( ) Spouse ( ) Daughter ( ) Son ( ) Pharmacy ( ) Other: Physician: Dr. Hathaway Patient MRN #: Reason for Call: Message: Patient has an appointment with Dr. Melissa tomorrow but she states that her legs and feet are swelling and she has a bad rash on her stomach. Wondering if she needs to come in today. Please call her back at [phone] to advise. Advice/Action: Source used: ( ) Verbalizes understanding [...] back cell phone number ( ) Source: [facility] [employer] Document Id: [id number] Miscellaneous - Cassie Melissa M.D. - 12/01/2016 2:10 PM CST Ambulatory Patient Summary [facility] [address] [place] [id number] Visit Information Name: NANCY PHILLIPS [facility] Number: [id number] Current Date: 12/01/2016 14:10:31 Physicians Attending Provider: CASSIE MELISSA MD Primary [...] the Following Medications: Medication list as of 12-01-16 14:10 Attention: If you have any medications at [...] Electronically Signed By: CASSIE MELISSA MD Signed On:01-DEC-2016 14:10:26 Your Allergies & Intolerances Substance Reaction Symptoms [...] Your Upcoming Appointments Date Time Location Provider 12/27/2016 09:45 [facility] Dinesh RED, Nicki Zuniga Attention: Contact your [...] if you dont have one. Go to [email or web address] and click on Create Your Account. Then, follow the directions to complete the online form. Youll be asked for your [facility] number which you can find at the top of this document. Your Goals/Additional instructions: Source: [facility] POWERCHART Document Id: [id number] Y WORKER Miscellaneous - Cassie Melissa M.D. - 12/01/2016 2:10 PM CST Ambulatory Discharge Medication List [address] [id number] Visit Information Name: NANCY PHILLIPS [facility] Number: [id number] Current Date: 12/01/2016 14:10:30 Attending Provider: CASSIE MELISSA MD Primary Care [...] the Following Medications: Medication list as of 12-01-16 14:10 Attention: If you have any medications at [...] Electronically Signed By: CASSIE MELISSA MD Signed On:01-DEC-2016 14:10:26 Additional Information: Source: [facility] POWERCHART Document Id: [id number] Y WORKER Bunny - Tonya العلي, L.P.N. - 12/01/2016 1:45 PM CST Ambulatory Vitals Height Weight Ambulatory Vitals Height Weight Entered On: 12/01/2016 13:45 SPRAY WORKER Performed On: 12/01/2016 13:45 SPRAY WORKER by TONYA العلي COMMUNICATION INSTRUCTOR Vitals/Ht/Wt Systolic Blood Pressure : 138 mmHg Diastolic Blood Pressure : 90 mmHg (HI) NIBP Mean : 106 mmHg BP Location : Right upper extremity Blood Pressure Cuff Size : Large Height : 164 cm(Converted to: 5 ft 5 inch(es), 65 inch(es)) TONYA العلي LPN - 12/01/2016 13:45 SPRAY WORKER [facility] Document Id: [id number] SPRAY WORKER!8 Y WORKER Miscellaneous - Tonya العلي L.P.NRodrigo - 12/01/2016 1:44 PM CST Pecan Sheller Documentation Pecan Sheller Documentation Entered On: 12/01/2016 13:45 SPRAY WORKER Performed On: 12/01/2016 13:44 SPRAY WORKER by TONYA العلي LPN Pecan Sheller Documentation Exam/Procedure Performed : Cervical exam CD Pecan Sheller Present : Yes CD Pecan Sheller Name : Susana PRADEEP العلي Present in Room During Exam/Procedure : Friend TONYA العلي LPN - 12/01/2016 13:44 SPRAY WORKER [facility] Document Id: [id number] SPRAY WORKER!6 Y WORKER Miscellaneous - Tonya العلي L.P.N. - 12/01/2016 12:54 PM CST Adult Occupational Therapy Supervisor Intake/History Adult Occupational Therapy Supervisor Intake/History Entered On: 12/01/2016 12:57 SPRAY WORKER Performed On: 12/01/2016 12:54 SPRAY WORKER by TONYA العلي LPN Intake Chief Complaint : OBFU 38 + 3 weeks LMP Date : 03/07/2016 Systolic Blood Pressure : 142 mmHg (HI) Diastolic Blood Pressure : 92 mmHg (>HHI) NIBP Mean : 109 mmHg BP Location : Left upper extremity Blood Pressure Cuff Size : Large Height : 164 cm(Converted to: 5 ft 5 inch(es), 65 inch(es)) Actual Weight : 125.7 kg(Converted to: 277 lb 2 oz) Weight Source : Standing scale Dosing Weight Clinic : 125.7 kg Clinic BSA : 2.39 Body Mass Index : 46.74 kg/m2 ELIANETONYA Marie PRADEEP - 12/01/2016 12:54 SPRAY WORKER General Info Languages : Turkish Is Patient Female and 13-50 no hysterectomy : Yes Status : Confirmed positive Are you ? : No ELIANETONYA Marie Nadia FERNÁNDEZ - 12/01/2016 12:54 SPRAY WORKER Subjective Pain Symptoms : No ELIANE TONYA Zuniga PRADEEP - 12/01/2016 12:54 SPRAY WORKER Dependent Habits Exposure to Tobacco Smoke : Other: never Smoking Status : Never smoker Tobacco 2A : No Tobacco Use/Currently Using : No Tobacco Use/Last 30 Days : No Tobacco Use/Last 12 months : No LEIANE TONYA Nadia FERNÁNDEZ - 12/01/2016 12:54 SPRAY WORKER Caffeine Use Grid Caffeine Use : Current Type : Soft drinks Frequency : Daily Amount : regular 1-2 cans daily ELIANEANURAGTONYAJENNYFER Zuniga LPN - 12/01/2016 12:54 SPRAY WORKER Source: [facility] POWERCHART Document Id: [id number] SPRAY WORKER!36 Y WORKER documented in this encounter Plan of Treatment Upcoming Encounters Date Type Specialty Care Team Description 08/17/2022 Procedure visit Neurology Marina Winter M.D., M.P.H. [address] [phone] (Wo rk) Scheduled Procedures Name Priority Associated Diagnoses Date/Time LIFT THIGH Excessive And Redundant Skin And Subcutaneous Tissue documented as of this encounter Procedures Procedure Name Priority Date/Time Associated Comments Diagnosis DIPSTICK, POCT, U Routine 12/01/2016 1:02 PM Resu lts for this (NURSING) INTERFACED SPRAY WORKER procedu re are in the results section. documented in this encounter Results Dipstick, POCT, Urine (nursing) (12/01/2016 1:02 PM SPRAY WORKER) [facility] Method Time Signature Color Yellow POWERCHART Appearance Clear POWERCHART Leukocytes, 1+ Small POWERCHART POCT, U Nitrites, Negative POWERCHART POCT, U Urobilinogen, 0.2 mg/dl POWERCHART POCT, Urine Protein, POCT, 1+ (30 POWERCHART U mg/dl) pH, POCT, 5.5 5.0 - 9.0 POWERCHART Urine Blood, POCT, U 1+ SMALL POWERCHART Specific 1.030 1.000 - POWERCHART [place], POCT, 1.030 U Ketone, POCT, Negative POWERCHART U Bilirubin, 1+ Small POWERCHART POCT, U Glucose, POCT, Negative POWERCHART U Specimen (Source) Anatomical Collection Method Collection Time Re ceived Time Location / / Volume Laterality 12/01/2016 1:02 PM SPRAY WORKER Cassie Melissa M.D. LAB POCT ORDERABLES - DEVICE Performing Organization Address City/State/ZIP Code Phon e Number POWERCHART documented in this encounter Visit Diagnoses Not on filedocumented in this encounter Additional Health Concerns Assessment Noted Time PHQ-9 Depression Total Score: 13 06/14/2015 3:56 PM CD T documented as of this encounter
--- OUTSIDE RECORDS SUMMARY | 2022-07-24 15:14 | XMS_ITS | Encounter Summary ---
:1985 Author Organization [facility] Address [address] [place] [address] Care Team Providers Name Role Phone Annemarie Montiel M.D. Primary Care Provider [phone] Encounter Details Date Type Department Care Team Description 05/02/2017 Hospital Encounter [facility] Leonel Pandya P.ARodrigo -C. [address] [place] [phone] (Wo rk) Social History Tobacco [...] 03/29/2020 relatives? How often do you attend scientology or mandaen Never 07/04/2019 services? 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 Last Filed Vital Signs Vital Sign Reading Time Taken Comments Blood Pressure 118/83 05/02/2017 1:03 PM CDT Pulse 97 05/02/2017 1:03 PM CDT Temperature - - Respiratory Rate 18 05/02/2017 1:03 PM CDT Oxygen Saturation - - Inhaled Oxygen Concentration - - Weight 118 kg (260 lb 5.8 oz) 05/02/2017 1:03 PM CDT Height 164 cm (5' 4.57) 05/02/2017 1:03 PM CDT Body Mass Index 43.91 05/02/2017 1:03 PM CDT documented in this encounter Medications at Time of Discharge Medication Sig Dispensed Refills Start Date End Date naproxen (for_NAPROSYN) Take 1 tablet by 0 201602/27/2018 250 mg tablet mouth 2 (two) times a day as needed. phentermine Take 1 tablet by 0 02/07/2017 017 (for_ADIPEX-P) 37.5 mg mouth daily. tablet venlafaxine XR (EFFEXOR Take 1 capsule by 0 12/2703/27/2018 XR) 75 mg 24 hr capsule mouth daily. documented as of this encounter Nursing Notes Lucia López R.N. - 05/02/2017 1:03 PM CDT Nurse Only Documentation Nurse Only Documentation Entered On: 05/02/2017 13:03 CDT Performed On: 05/02/2017 13:03 CDT by LUCIA LÓPEZ RN Nurse Only Documentation Nurse Only Visit Documentation : [facility]BP check. Message sent to PCP Dinesh. Patient is requesting Phentermine refills to [facility] pharmacy. Patient inquired about Naproxen Rx and was informed was sent 04/30/17. She will check with pharmacy. LUCIA LÓPEZ RN - 05/02/2017 13:12 CDT Vitals/Ht/Wt Peripheral Pulse Rate : 97 /min LUCIA LÓPEZ RN - 05/02/2017 13:03 CDT Respiratory Rate : 18 /min LUCIA LÓPEZ RN - 05/02/2017 13:06 CDT Systolic Blood Pressure : 118 mmHg Diastolic Blood Pressure : 83 mmHg NIBP Mean : 95 mmHg BP Location : Right upper extremity Blood Pressure Cuff Size : Large Height : 164 cm(Converted to: 5 ft 5 inch(es), 65 inch(es)) Actual Weight : 118.1 kg(Converted to: 260 lb 6 oz) Weight Source : Standing scale Dosing Weight Clinic : 118.1 kg Clinic BSA : 2.32 Body Mass Index : 43.91 kg/m2 LUCIA LÓPEZ RN - 05/02/2017 13:03 CDT Source: [facility] [employer] Document Id: [id number] CDT!17 documented in this encounter Miscellaneous Notes Miscellaneous - Lucia López R.N. - 05/02/2017 1:14 PM CDT BP/wt; Rx request Document Contains Addenda Addendum by STEVE SAMSON LPN on May 02, 2017 14:51:59 CDT faxed to [facility] Addendum by ANNEMARIE MONTIEL MD on May 02, 2017 13:27:40 CDT From: ANNEMARIE MONTIEL MD To: [facility] 2W Nurse; Sent: 05/02/2017 13:27:40 CDT Subject: RE: BP/wt; Rx request Addendum by ANNEMARIE MONTIEL MD on May 02, 2017 13:24:55 CDT Submitted: Order:phentermine (phentermine 37.5 mg oral tablet) 1 tab(s) PO Daily [facility] Qty: 42 tab(s) Refills: 0 Substitutions Allowed Print - [id number] Signed by ANNEMARIE MONTIEL MD 05/02/2017 13:24:40 From: LUCIA LÓPEZ RN ([facility]/Travel Nurse) To: ANNEMARIE MONTIEL MD; Sent: 05/02/2017 13:14:51 CDT Subject: BP/wt; Rx request Patient in for BP/wt check. Please review attached document. Patient requesting phentermine refill sent to [facility] pharmacy. [facility] Document Id: [id number] documented in this encounter Plan of Treatment Upcoming Encounters Date Type Specialty Care Team Description 08/17/2022 Procedure visit Neurology Marina Winter M.D., M.P.H. [address] [place], [place] [phone] (Wo rk) Scheduled Procedures Name Priority Associated Diagnoses Date/Time LIFT THIGH Excessive And Redundant Skin And Subcutaneous Tissue documented as of this encounter Visit Diagnoses Not on filedocumented in this encounter Additional Health Concerns Assessment Noted Time PHQ-9 Depression Total Score: 9 12/27/2016 10:29 AM CS T documented as of this encounter Care Teams Concrete Products Dispatcher Relationship Specialty Start Date End Date Annemarie Montiel M.D. PCP - General 04/19/[address] [place] [address] documented as of this encounter
--- OUTSIDE RECORDS SUMMARY | 2022-07-24 15:14 | XMS_ITS | Encounter Summary ---
:[address] [facility] Address [address] [place] [address] Care Team Providers Name Role Phone Annemarie Montiel M.D. Primary Care Provider [phone] Encounter Details Date Type Department Care Team Description 08/21/2017 Hospital Encounter HX [facility] Meche Montiel M.D. 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 venlafaxine XR (EFFEXOR Take 1 capsule by 0 08/2103/27/2018 XR) 150 mg 24 hr mouth daily. capsule venlafaxine XR (EFFEXOR Take 1 capsule by 0 12/2703/27/2018 XR) 75 mg 24 hr capsule mouth daily. zolpidem (AMBIEN) 10 mg Take 1 tablet by mouth 0 08/09/2017 01/21/2018 tablet at bedtime. documented as of this encounter Progress Notes Annemarie Montiel M.D. - 08/21/2017 9:57 AM CDT [id number] CHIEF COMPLAINT / REASON FOR VISIT Medication check. HISTORY OF PRESENT ILLNESS Nancy is a 32-year-old female who presents to the clinic today for a medication check. Since her last visit, she had a hysterectomy on July 25 due to pain and bleeding. Patient is still experiencing cramps, like menstruation camps. Her incision on her right side makes wearing jeans uncomfortable. She reports that during the surgery, her uterus had to be from her bladder since they were fused. Patient would like to restart phentermine, she ran out of that. She would like something for anxiety. Patient is on Effexor but she needs something to manage her anxiety when it gets overwhelming. She is experiencing this anxiety daily. It happens in the morning mostly when she gets overwhelmed with her family. She can mostly handle her family, but when Azalea comes over with her kids it is too much.Azalea comes over almost daily. School is going well for her kids. Her children and are emotional rollercoasters which is still stressful. CURRENT MEDICATIONS Reviewed and updated in the EMR dated 08/21/2017. ALLERGIES No known drug allergies. VITAL SIGNS HEIGHT: 164 cm. WEIGHT: 125.3 kg. BMI: 46.59 kg/m2. TEMP: 36.8 Deg C. PULSE: 84 /min. RESP RATE: 18 /min. SYSTOLIC: 126 mmHg. DIASTOLIC: 70 mmHg. PHYSICAL EXAM GENERAL: Alert, oriented morbidly obese female. Non distressed SKIN: Intact. No rash. She has a well healing scar on the lower abdomen. Extruding stitch removed. No drainage. HEART: Regular rate and rhythm. Normal S1 and S2. No murmur or bruit. LUNGS: Clear. No wheezes or crackles. Normal inspiratory to expiratory ratio. ABDOMEN: Soft, nontender. No mass. MENTAL: Pleasant and cheerful. .Appropriate mood and affect. Endorses significant anxiety. Normal judgement and insight. BENITA-7 score: 15. PHQ-9 score:13. IMPRESSION / REPORT / PLAN 1. Morbid obesity with desire for weight loss. 2. Generalized anxiety disorder. 3. Major depression. Plan: 1. Restart phentermine 37.5 mg capsule daily. We will do this for 12 weeks and then go off for 4 weeks. If not seeing improvement in 12 weeks, I could refer her to the Endocrine and Metabolism clinic in [place] but reminded her that slow and steady progress is the goal. 2. Start BuSpar 15 mg tablet twice a day. If needed, patient can use this up to three times a day. 3. Continue Effexor XR 150 mg oral capsule, extended release, 1 cap daily. ADMINISTRATIVE BILLIN minutes of this 25 minute visit was spent in face to face counseling regarding all of the above. This document serves as a record of services personally performed by Annemarie Montiel MD. It was created on their behalf by Tiago Newman, a trained medical care manager. The creation of this record is based on the scribe's personal observations and the provider's statements to them. This document has been checked and approved by the attending provider. Annemarie Montiel M.D./lisa Electronically Signed By: ANNEMARIE MONTIEL MD On: 09/05/2017 08:52 PM Source: [facility] MHSDOLBEYNONRADSYS Document Id: [id number] documented in this encounter Miscellaneous Notes Miscellaneous - Steve Shoemaker L.P.N. - 08/21/2017 12:55 PM CDT BENITA-7 BENITA-7 Entered On: 08/21/2017 12:55 CDT Performed On: 08/21/2017 12:55 CDT by STEVE SHOEMAKER LPN GAD7 GAD7 Feeling nervous : Nearly every day GAD7 Not able to control worry : More than half the days GAD7 Worrying too much : More than half the days GAD7 Trouble relaxing : Nearly every day GAD7 Being so restless : Several days GAD7 Becoming easily annoyed : Nearly every day GAD7 Feeling afraid : Several days GAD7 Total Score : 15 Problems make work, home, or dealing with others : Extremely difficult STEVE SHOEMAKER LPN - 08/21/2017 12:55 CDT Source: [facility] POWERCHART Document Id: [id number] CDT!11 Miscellaneous - Steve Shoemaker L.P.N. - 08/21/2017 12:55 PM CDT PHQ-9 PHQ-9 Entered On: 08/21/2017 12:56 CDT Performed On: 08/21/2017 12:55 CDT by STEVE SHOEMAKER LPN PHQ-9 Little interest or pleasure in doing things : Several days Feeling down, depressed, or hopeless : More than half the days Trouble falling or staying asleep, or sleeping too much : Nearly every day Feeling tired or having little energy : More than half the days Poor appetite or overeating : Several days Feeling bad about yourself or that you are a failure : More than half the days Trouble concentrating on things : Several days Moving or speaking slowly; restless or fidgety : Not at all Thoughts that you would be better off /hurting self : Several days PHQ-9 Calculated Score : 13 Problems make work, home, or dealing with others : Extremely difficult STEVE SHOEMAKER LPN - 08/21/2017 12:55 CDT Source: [employer] Document Id: [id number] CDT!13 Miscellaneous - Annemarie Montiel M.D. - 08/21/2017 11:19 AM CDT Ambulatory Patient Summary [address] [id number] Visit Information Name: NANCY PHILLIPSE [facility] Number: [id number] Current Date: 08/21/2017 11:19:10 Physicians Attending Provider: ANNEMARIE MONTIEL MD Primary Care Provider: ANNEMARIE MONTIEL MD ALANJOSEPHINENANCY ELIZABETH has been given the following list of [...] additional tab as needed for increased anxiety New Routed to [facility] [address] [place] [address] [facility] Prescription ([facility] Prescription) Cocunut oil 1000mg tablet daily naproxen (naproxen 250 mg oral tablet) 1 Tablet(s), Oral, two times a day as needed for pain with food oxyCODONE-acetaminophen (oxyCODONE-acetaminophen 5 mg-325 mg oral tablet) 1 Tablet(s), Oral, every 4hours as needed for Pain No more than 4,000mg acetaminophen/24hrs phentermine (phentermine 37.5 mg oral capsule) 1 cap, Oral, once a day New Routed to [facility] venlafaxine (Effexor XR 150 mg oral capsule, extended release) 1 cap, Oral, once a day This is a CHANGE Routed to [facility] [address] [facility] [place] [address] zolpidem (Ambien 10 mg oral tablet) 1 Tablet(s), Oral, once a day (at bedtime) Stop Taking the Following Medications: fluconazole (Diflucan 150 mg oral tablet) Medication list as of 08-21-17 11:19 Attention: If you have any medications at [...] Electronically Signed By: ANNEMARIE MONTIEL MD Signed On:21-AUG-2017 11:19:04 Your Allergies & Intolerances Substance Reaction Symptoms [...] Your Upcoming Appointments Date Time Location Provider 09/06/2017 13:15 [facility] SPLITTING MACHINE OPERATOR HELPER Ileana RED, Nahun Regalado Attention: Contact your [...] if you dont have one. Go to [email or web address] and click on Create Your Account. Then, follow the directions to complete the online form. Youll be asked for your [facility] number which you can find at the top of this document. Your Goals/Additional instructions: Source: [facility] POWERCHART Document Id: [id number] Miscellaneous - Annemarie Montiel M.D. - 08/21/2017 11:19 AM CDT Ambulatory Discharge Medication List [address] [id number] Visit Information Name: NANCY PHILLIPS [facility] Number: [id number] Current Date: 08/21/2017 11:19:10 Attending Provider: ANNEMARIE MONTIEL MD Primary Care [...] additional tab as needed for increased anxiety New Routed to [facility] [address] [place] [address] [facility] Prescription ([facility] Prescription) Cocunut oil 1000mg tablet daily naproxen (naproxen 250 mg oral tablet) 1 Tablet(s), Oral, two times a day as needed for pain with food oxyCODONE-acetaminophen (oxyCODONE-acetaminophen 5 mg-325 mg oral tablet) 1 Tablet(s), Oral, every 4hours as needed for Pain No more than 4,000mg acetaminophen/24hrs phentermine (phentermine 37.5 mg oral capsule) 1 cap, Oral, once a day New Routed to [facility] venlafaxine (Effexor XR 150 mg oral capsule, extended release) 1 cap, Oral, once a day This is a CHANGE Routed to [facility] [address] [place] [address] zolpidem (Ambien 10 mg oral tablet) 1 Tablet(s), Oral, once a day (at bedtime) Stop Taking the Following Medications: fluconazole (Diflucan 150 mg oral tablet) Medication list as of 08-21-17 11:19 Attention: If you have any medications at [...] Electronically Signed By: ANNEMARIE MONTIEL MD Signed On:21-AUG-2017 11:19:04 Additional Information: Source: [facility] POWERCHART Document Id: [id number] Miscellaneous - Rafael-Galina Morgan C.MSandra - 08/21/2017 10:09 AM CDT Adult Heel Gummer Intake/History Adult Heel Gummer Intake/History Entered On: 08/21/2017 10:12 CDT Performed On: 08/21/2017 10:09 CDT by GALINA FISHER [facility] Intake Chief Complaint : Med Check Temperature Oral : 36.8 DegC(Converted to: 98.2 DegF) Peripheral Pulse Rate : 84 /min Respiratory Rate : 18 /min Systolic Blood Pressure : 126 mmHg Diastolic Blood Pressure : 70 mmHg NIBP Mean : 89 mmHg BP Location : Right upper extremity Blood Pressure Cuff Size : Large Height : 164 cm(Converted to: 5 ft 5 inch(es), 65 inch(es)) Actual Weight : 125.3 kg(Converted to: 276 lb 4 oz) Dosing Weight Clinic : 125.3 kg Clinic BSA : 2.39 Body Mass Index : 46.59 kg/m2 GALINA FISHER [facility] - 08/21/2017 10:09 CDT General Info Information Given By : Patient Languages : Irish Is Patient Female and 13-50 no hysterectomy : No GALINA FISHER [facility] - 08/21/2017 10:09 CDT Subjective Pain Symptoms : Yes GALINA FISHER [facility] - 08/21/2017 10:09 CDT Dependent Habits Exposure to Tobacco Smoke : Other: never Smoking Status : Never smoker Tobacco 2A : No Tobacco Use/Currently Using : No Tobacco Use/Last 30 Days : No Tobacco Use/Last 12 months : No GALINA FISHER [facility] - 08/21/2017 10:09 CDT Caffeine Use Grid Caffeine Use : Current Type : Soft drinks Frequency : Daily Amount : regular 1-2 cans daily GALINA FISHER [facility] - 08/21/2017 10:09 CDT Source: [facility] POWERCHART Document Id: [id number] CDT!35 documented in this encounter Plan of Treatment Upcoming Encounters Date Type Specialty Care Team Description 08/17/2022 Procedure visit Neurology Marina Winter M.D., M.P.H. [address] [phone] (Wo rk) Scheduled Procedures Name Priority Associated Diagnoses Date/Time LIFT THIGH Excessive And Redundant Skin And Subcutaneous Tissue documented as of this encounter Visit Diagnoses Not on filedocumented in this encounter Additional Health Concerns Assessment Noted Time PHQ-9 Depression Total Score: 13 08/21/2017 12:55 PM C DT documented as of this encounter Care Teams Irrigator Head Relationship Specialty Start Date End Date Annemarie Montiel M.D. PCP - General 04/19/[address] [address] documented as of this encounter
--- OUTSIDE RECORDS SUMMARY | 2022-07-24 15:14 | XMS_ITS | Encounter Summary ---
:1985 Author Organization [facility] Address [address] [place] [address] Care Team Providers Name Role Phone Unavailable Primary Care Provider Unavailable Encounter Details Date Type Department Care Team Description 12/15/2016 Hospital Encounter HX [facility] Ranjit Lee M.D. [address], [place] [phone] (Wo rk) Social History [...] How often do you attend mandaeism or moravian Never 07/04/2019 services? 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 - 12/15/2016 1:46 PM CST [id number] CHIEF COMPLAINT/REASON FOR VISIT Postop check. HISTORY OF PRESENT ILLNESS Nancy is a 31-year-old, para 4-0-1-4 female, who is 14 days postop status post repeat low transverse section and bilateral tubal ligation who presents for postop check today and followup tano itchy rash on her abdomen. I last saw Nancy 8 days ago and at that time she reported an itchy red rash on her abdomen over the last several days. At first it was even swollen. I had given her a prescription for Kenalog cream and she reports that it resolved with that and it is completely gone. She also described being very sedated on the Effexor 150 mg by mouth daily. She has cut back to 75 mg by mouth daily and is doing much better on this. She reports no mood concerns. She is voiding, ambulating and tolerating a regular diet without difficulty and having normal bowel movements. She does continue to have a small amount of bleeding. She reports that she has been on naproxen in the past to help with migraine headaches and she requests a refill of this today. MEDICATIONS See medication list updated in the EMR today. ALLERGIES See allergy list updated in the EMR today. SYSTEMS REVIEW GENERAL: No fevers, chills, fatigue, unintentional weight loss or weight gain. HEENT: No changes in hearing. Positive for changes in vision. No sore throat or nasal congestion. CARDIOVASCULAR: No [...] difficulty with memory, numbness, tingling, falls. PSYCHIATRIC: No anxiety, depression, or difficulty sleeping. ENDOCRINE: No heat intolerance, cold intolerance, excessive thirst or hair loss. VITAL SIGNS See results review section updated in the EMR today. PHYSICAL EXAMINATION GENERAL: Well-nourished female, in no acute distress. HEAD: Normocephalic, atraumatic. ABDOMEN: Soft, nondistended, nontender. Normoactive bowel sounds. The Pfannenstiel skin incision is clean, dry, and intact without redness, erythema or increased warmth. The Steri-Strips have fallen off. SKIN: The red rash that was noted on her abdomen in the past has completely resolved. IMPRESSION/REPORT/PLAN A 31-year-old para 4-0-1-4 female, who is 14 days postop status post repeat low transverse section with bilateral tubal ligation who presents for postop check today and followup of the red rash on her abdomen and she has had complete resolution of this. 1. Postoperative progress: The patient is making excellent postoperative progress. She has no complaints at this time. She requests a prescription for naproxen to help with postop pain and her headaches and a prescription for this was given. She was advised to take this with food and not to take it with ibuprofen. 2. Rash: Resolved with Kenalog cream and time. She was advised to inform anybody in the future if she has surgery that she is allergic to either the prep that was used for the surgery or the adhesive drape. 3. History of mild gestational hypertension: Her blood pressure is in the normal range today. 4. History of anxiety and depression: Well managed on Effexor 75 mg by mouth daily. We will see how she is doing with this when she returns. She also has a followup visit scheduled with Dr. Montiel who manages her symptoms on December 31. 5. Followup: One month for visit. Kristi Melissa M.D./pepe Electronically Signed By: KRISTI MELISSA MD On: 12/21/2016 01:08 PM Source: [facility] MHSDOLBEYNONRADSYS Document Id: [id number] ROAD WATCHMAN documented in this encounter Miscellaneous Notes Miscellaneous - Kristi Melissa M.D. - 12/15/2016 3:24 PM CST Ambulatory Discharge Medication List [facility] [address] [place] [id number] Visit Information Name: NANCY PHILLIPS [facility] Number: [id number] Current Date: 12/15/2016 15:24:04 Attending Provider: KRISTI MELISSA MD Primary Care [...] Take Indications/Special Instructions/Comments/Notes for Patient Medication Changes/Routing ibuprofen (ibuprofen 600 mg oral tablet) 1 Tablet(s), Oral, every 6 hours multivitamin, ( Multivitamins) 1 TAB, Oral, once a day naproxen (naproxen 250 mg oral tablet) 1 Tablet(s), Oral, two times a day as needed for pain with food New Routed to [facility] [address] [place] [address] venlafaxine (Effexor XR 75 mg oral capsule, extended release) 1 cap, Oral, once a day This is a CHANGE Stop Taking the Following Medications: Medication list as of 12-15-16 15:24 Attention: If you have any medications at [...] Electronically Signed By: KRISTI MELISSA MD Signed On:15-DEC-2016 15:24:03 Additional Information: Source: [facility] POWERCHART Document Id: [id number] ROAD WATCHMAN Miscellaneous - Kristi Melissa M.D. - 12/15/2016 3:24 PM CST Ambulatory Patient Summary [place] [address] [place] [id number] Visit Information Name: NANCY PHILLIPS [facility] Number: [id number] Current Date: 12/15/2016 15:24:05 Physicians Attending Provider: KRISTI MELISSA MD Primary [...] Take Indications/Special Instructions/Comments/Notes for Patient Medication Changes/Routing ibuprofen (ibuprofen 600 mg oral tablet) 1 Tablet(s), Oral, every 6 hours multivitamin, ( Multivitamins) 1 TAB, Oral, once a day naproxen (naproxen 250 mg oral tablet) 1 Tablet(s), Oral, two times a day as needed for pain with food New Routed to [facility] [address] [facility] [place] [address] venlafaxine (Effexor XR 75 mg oral capsule, extended release) 1 cap, Oral, once a day This is a CHANGE Stop Taking the Following Medications: Medication list as of 12-15-16 15:24 Attention: If you have any medications at home that are not on this list, DO NOT take them until youcontact your provider for clarification. Give a copy of your medication list to your primary care provider. Update your medication list any time medications or doses are changed and carry your medication list at all times in case of emergency. Electronically Signed By: KRISIT MELISSA MD Signed On:15-DEC-2016 15:24:03 Your Allergies & Intolerances Substance Reaction Symptoms [...] Appointments Date Time Location Provider 12/27[facility]2016 09:45 [facility] 01/11/2017 13:15 [facility] COMMUNITY HEALTH COUNSELOR Emmy RED, Kristi Attention: Contact your local Clinic if further [...] if you dont have one. Go to [email or web address] and click on Create Your Account. Then, follow the directions to complete the online form. Youll be asked for your [facility] number which you can find at the top of this document. Your Goals/Additional instructions: Source: [facility] POWERCHART Document Id: [id number] ROAD WATCHMAN Miscellaneous - Alexandra العلي L.P.N. - 12/15/2016 2:20 PM CST Adult World Designer Intake/History Adult World Designer Intake/History Entered On: 12/15/2016 14:21 RAILROAD WATCHMAN Performed On: 12/15/2016 14:20 RAILROAD WATCHMAN by ALEXANDRA العلي LPN Intake Chief Complaint : Incision check Peripheral Pulse Rate : 78 /min Respiratory Rate : 16 /min Heart Rhythm : Regular Systolic Blood Pressure : 132 mmHg Diastolic Blood Pressure : 80 mmHg NIBP Mean : 97 mmHg BP Location : Left upper extremity Blood Pressure Cuff Size : Large Height : 164 cm(Converted to: 5 ft 5 inch(es), 65 inch(es)) Actual Weight : 117.4 kg(Converted to: 258 lb 13 oz) Weight Source : Standing scale Dosing Weight Clinic : 117.4 kg Clinic BSA : 2.31 Body Mass Index : 43.65 kg/m2 ALEXANDRA العلي LPN - 12/15/2016 14:20 RAILROAD WATCHMAN General Info Languages : Swedish Is Patient Female and 13-50 no hysterectomy : Yes Status : Patient denies Are you ? : No ALEXANDRA العلي LPN - 12/15/2016 14:20 RAILROAD WATCHMAN Subjective Pain Symptoms : No ALEXANDRA العلي LPN - 12/15/2016 14:20 RAILROAD WATCHMAN Dependent Habits Exposure to Tobacco Smoke : Other: never Smoking Status : Never smoker Tobacco 2A : No Tobacco Use/Currently Using : No Tobacco Use/Last 30 Days : No Tobacco Use/Last 12 months : No ALEXANDRA العلي LPN - 12/15/2016 14:20 RAILROAD WATCHMAN Caffeine Use Grid Caffeine Use : Current Type : Soft drinks Frequency : Daily Amount : regular 1-2 cans daily ALEXANDRA العلي LPN - 12/15/2016 14:20 RAILROAD WATCHMAN Source: [facility] POWERCHART Document Id: [id number] RAILROAD WATCHMAN!37 ROAD WATCHMAN documented in this encounter Plan of Treatment Upcoming Encounters Date Type Specialty Care Team Description 08/17/2022 Procedure visit Neurology Marina Winter M.D., M.P.H. [address] [place], [place] [phone] (Wo rk) Scheduled Procedures Name Priority Associated Diagnoses Date/Time LIFT THIGH Excessive And Redundant Skin And Subcutaneous Tissue documented as of this encounter Visit Diagnoses Not on filedocumented in this encounter Additional Health Concerns Assessment Noted Time PHQ-9 Depression Total Score: 13 06/14/2015 3:56 PM CD T documented as of this encounter
--- OUTSIDE RECORDS SUMMARY | 2022-07-24 15:14 | XMS_ITS | Encounter Summary ---
:1985 Author Organization [facility] Address [address] [place] [address] Care Team Providers Name Role Phone Unavailable Primary Care Provider Unavailable Encounter Details Date Type Department Care Team Description 03/27/2017 Hospital Encounter [facility]X [facility] Meche Montiel M.D. [address] [place] [address] (Wo rk) Social History Tobacco [...] 03/29/2020 relatives? How often do you attend temple or mormonism Never 07/04/2019 services? 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 tablet venlafaxine XR (EFFEXOR Take 1 capsule by 0 12/2703/27/2018 XR) 75 mg 24 hr capsule mouth daily. documented as of this encounter Progress Notes Annemarie Montiel M.D. - 03/27/2017 11:19 AM CDT [id number] CHIEF COMPLAINT / REASON FOR VISIT Follow up weight loss plan and multiple medical concerns HISTORY OF PRESENT ILLNESS Nancy is a 32-year-old female who presents to the clinic today for a weight loss follow up and multiple medical concerns. She stopped taking her Phentamine last week because she felt it was not decreasing her appetite, although the increased energy effect still remained. Her weight loss goal is 210 pounds or lower. Patient also complains of a lot of back pain that has been present for a long time. She has gone to a chiropractor in the past, but stopped when insurance stopped covering it. The chiropractor did mention that she may have a disc out of place. She has been told before by school nurses and when she received her epidural that she has a curved spine, but she is not diagnosed. She also is complaining of lower stomach pain from her scarring. She had a repeat in November, moving the number of C-sections she has had 4 total. The patient also expressed interest in a hysterectomy regarding her endometriosis making her periods more painful. CURRENT MEDICATIONS Phentermine 37.5 mg tablet. 1 tablet by mouth daily Naproxen 250 mg oral tablet, 1 tablet 2 times daily as needed for pain. Take this with food. Effexor XR 75 mg, by mouth daily Docusate-senna 50 mg-8.6 mg oral tablet. 2 tablets by mouth at bedtime as needed ALLERGIES No known drug allergies. SOCIAL HISTORY Patient is not working currently. She is staying at home with the kids. She has not been exercising but expressed that she would when the weather improves. VITAL SIGNS HEIGHT: 164 cm. WEIGHT: 122.3 kg. BMI: 45.47 kg/m2. PULSE: 60 /min. SYSTOLIC: 132 mmHg. DIASTOLIC: 80 mmHg. PHYSICAL EXAMINATION GENERAL: Alert, oriented obese female, well developed and well nourished. SKIN: Intact. No rash or lesion. No ecchymosis. HEART: Regular rate and rhythm. Normal S1 and S2. No murmur or bruit. LUNGS: Clear. No wheezes or crackles. Normal inspiratory to expiratory ratio. ABDOMEN: Soft, nontender. No mass. Nicely healing lower abdominal incision, superior to this I can palpate intraabdominal scar tissue, which is moderately tender. ?This also could be the uterine fundus. SPINE: Nontender. No kyphosis or curvature. Lumbar paraspinous in nontender. EXTREMITIES: No edema. JOINTS: No effusions. MENTAL: Appropriate mood and affect. Normal judgement and insight. NEURO: Cranial nerves II-XII grossly intact. No focal deficit. Sensation is intact. IMPRESSION / REPORT / PLAN 1. Mechanical low back pain. Discussed that she needs to work on lumbar and abdominal strengthening as well as weight loss to improve her back pain. 2. Abdominal discomfort. Consistent with post c section scar tissue. This can also be worked on at PT. Discussed that it may take more time to recover given that she is only 4 months post-. 3. Morbid obesity with desire for weight loss. Plan: 1. Referral to PT. She may also continue with chiropractic appointments she has set up. Work on stretching and strengthening to decrease her pain. 2. PT as noted above. 3. Phentermine 37.5 mg oral tablet daily. Add Topamax 25 mg once daily for one week, then increased to twice daily. Urged her to get into an exercise routine to help with weight loss, but also discussed that this will help with her pain and mental health. This document serves as a record of services personally performed by Annemarie Montiel MD. It was created on their behalf by Reggie Cohen, a trained medical collections. The creation of this record is basedon the scribe's personal observations and the provider's statements to them. This document has been c hecked and approved by the attending provider. Annemarie Montiel M.D./lisa Electronically Signed By: ANNEMARIE MONTIEL MD On: 04/08/2017 09:46 AM Source: [facility] MHSDOLBEYNONRADSYS Document Id: [id number] documented in this encounter Miscellaneous Notes Miscellaneous - Nereyda Borges - 04/30/2017 10:24 AM CDT Med Management Document Contains Addenda Addendum by ANNEMARIE MONTIEL MD on April 30, 2017 12:53:13 CDT Approved with modifications: Order:naproxen (naproxen 250 mg oral tablet) 1 tab(s) PO 2xDay with food Qty: 30 tab(s) Refills: 4 Substitutions Allowed PRN pain Route To Pharmacy - [facility] Signed by ANNEMARIE MONTIEL MD 04/30/2017 12:53:08 From: NEREYDA BORGES DB2 DEVELOPER ([facility] 2W Nurse) To: ANNEMARIE MONTIEL MD; Sent: 04/30/2017 10:24:35 CDT Subject: Med Management On hold pending signature Order:naproxen (naproxen 250 mg oral tablet) 1 tab(s) PO 2xDay with food Qty: 30 tab(s) Refills: 1 Substitutions Allowed PRN pain Route To Pharmacy - [facility] Caller is: ( ) Patient ( ) Mother ( ) Father ( ) Spouse ( ) Daughter ( ) Son ( ) Pharmacy ( ) Other: Provider: Pharmacy: [facility] Name of Medications Needing Refill: naproxen 250mg Last Refill Date: Additional Information: Last / Future Appointment: lp: 11/04/14 Disposition: ( ) Send to Pharmacy ( ) Call to Pharmacy ( ) 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 - 03/27/2017 12:36 PM CDT Ambulatory Patient Summary [facility] [address] [place] [id number] Visit Information Name: NANCY PHILLIPS [facility] Number: [id number] Current Date: 03/27/2017 12:36:15 Physicians Attending Provider: ANNEMARIE MONTIEL MD Primary [...] tablet) 1 Tablet(s), Oral, once a day topiramate (Topamax 25 mg oral tablet) See Instructions 1 tab(s) PO at bedtime for 1 week and then increase to twice daily New Routed to [facility] [address] [place] [address] venlafaxine (Effexor XR 75 mg oral capsule, extended release) 1 cap, Oral, once a day Stop Taking the Following Medications: Medication list as of 03-27-17 12:36 Attention: If you have any medications at [...] Electronically Signed By: ANNEMARIE MONTIEL MD Signed On:27-MAR-2017 12:36:05 Your Allergies & Intolerances Substance Reaction Symptoms [...] if you dont have one. Go to [email or web address] and click on Create Your Account. Then, follow the directions to complete the online form. Youll be asked for your [facility] number which you can find at the top of this document. Your Goals/Additional instructions: Source: [facility] POWERCHART Document Id: [id number] Miscellaneous - Annemarie Montiel M.D. - 03/27/2017 12:36 PM CDT Ambulatory Discharge Medication List [address] [id number] Visit Information Name: ALAN NANCY JOHNSON [facility] Number: [id number] Current Date: 03/27/2017 12:36:14 Attending Provider: ANNEMARIE MONTIEL MD Primary Care Provider: ANNEMARIE MONTIEL MD ALAN NANCY JOHNSON has been given the following list of [...] tablet) 1 Tablet(s), Oral, once a day topiramate (Topamax 25 mg oral tablet) See Instructions 1 tab(s) PO at bedtime for 1 week and then increase to twice daily New Routed to [facility] [address] [place] [address] venlafaxine (Effexor XR 75 mg oral capsule, extended release) 1 cap, Oral, once a day Stop Taking the Following Medications: Medication list as of 03-27-17 12:36 Attention: If you have any medications at [...] Electronically Signed By: ANNEMARIE MONTIEL MD Signed On:27-MAR-2017 12:36:05 Additional Information: Source: [facility] POWERCHART Document Id: [id number] Miscellaneous - Joaquina Granda C.MRodrigoARodrigo - 03/27/2017 11:58 AM CDT Adult Night Baker Intake/History Adult Night Baker Intake/History Entered On: 03/27/2017 12:00 CDT Performed On: 03/27/2017 11:58 CDT by [facility] Intake Chief Complaint : follow up for weight loss Peripheral Pulse Rate : 60 /min Heart Rhythm : Regular Systolic Blood Pressure : 132 mmHg Diastolic Blood Pressure : 80 mmHg NIBP Mean : 97 mmHg BP Location : Right upper extremity Blood Pressure Cuff Size : Large Height : 164 cm(Converted to: 5 ft 5 inch(es), 65 inch(es)) Actual Weight : 122.3 kg(Converted to: 269 lb 10 oz) Weight Source : Standing scale Dosing Weight Clinic : 122.3 kg Clinic BSA : 2.36 Body Mass Index : 45.47 kg/m2 [facility] - 03/27/2017 11:58 CDT General Info Information Given By : Patient Languages : Kinyarwanda Is Patient Female and 13-50 no hysterectomy : No [facility] - 03/27/2017 11:58 CDT Subjective Pain Symptoms : No [facility] - 03/27/2017 11:58 CDT Dependent Habits Exposure to Tobacco Smoke : Other: never Smoking Status : Never smoker Tobacco 2A : No Tobacco Use/Currently Using : No Tobacco Use/Last 30 Days : No Tobacco Use/Last 12 months : No [facility] - 03/27/2017 11:58 CDT Caffeine Use Grid Caffeine Use : Current Type : Soft drinks Frequency : Daily Amount : regular 1-2 cans daily [facility] - 03/27/2017 11:58 CDT Source: [facility] POWERCHART Document Id: [id number] CDT!35 documented in this encounter Plan of Treatment Upcoming Encounters Date Type Specialty Care Team Description 08/17/2022 Procedure visit Neurology Marina Winter M.D., M.P.H. [address] [phone] (Wo rk) Scheduled Procedures Name Priority Associated Diagnoses Date/Time LIFT THIGH Excessive And Redundant Skin And Subcutaneous Tissue documented as of this encounter Visit Diagnoses Not on filedocumented in this encounter Additional Health Concerns Assessment Noted Time PHQ-9 Depression Total Score: 9 12/27/2016 10:29 AM CS T documented as of this encounter
--- OUTSIDE RECORDS SUMMARY | 2022-07-24 15:14 | XMS_ITS | Encounter Summary ---
:1985 Author Organization [facility] Address [address] [place] [address] Care Team Providers Name Role Phone Unavailable Primary Care Provider Unavailable Encounter Details Date Type Department Care Team Description 01/24/2017 Hospital Encounter HX [facility] Cassie Su M.D. [address] [place] [address] (Wo rk) Social History Tobacco [...] How often do you attend mandaeism or pentecostal Never 07/04/2019 services? 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 documented as of this encounter Miscellaneous Notes Telephone Encounter - Conversion, Historical Provider Ser - 02/12/2017 10:53 AM CDT *Phone Message- Document Contains Addenda Addendum by CLIFFORD OVALLES LPN on February 12, 2017 13:57 CDT Dilshad from [facility] called stated that he talked with patient and phentermine is a medication that they can't transfer from another pharmacy. This medication has been faxed to [facility] and will send a communication to [facility] to disregard the prescription to them. Modified by and Electronically Signed by: CLIFFORD OVALLES LPN On: 02/12/2017 01:57 PM Addendum by MARIS LOWRY RN on February 12, 2017 11:57:50 CDT Spoke with: ( x ) Patient ( _ ) Parent ( _ ) Spouse ( _ ) Child ( ) Other: _ Call back telephone number: _ Reason for Call: -Pharm switch Chief Complaint: Pt advised that she already contact [facility], and they are going to reroute her Phentermine to them from [facility]. _ Patient/Caller response to Education/Information given: ( x ) Verbalizes understanding of instructions ( _ ) Provide intervention per provider instruction ( _ ) Reinforce information already given ( _ ) Reinforce Plan of Care ( _ ) Provide preprinted information by mail (if applicable) Source/Reference used (if applicable): OK to leave message on voice mail? _ OK to send message via patient portal? _ Patient told to expect return call: ( _ ) today ( _ ) tomorrow ( _ ) next work day Callers preferred language for Healthcare discussion: _ Was an litigation examiner used for this call? _ Other ( --_ ) From: BRENT AGUILAR To: JACEY KUMARsenior facilities manager [facility]; Sent: 02/12/2017 10:53:24 CDT Subject: *Phone Message- Caller is: (x ) Patient ( ) Mother ( ) Father ( ) Spouse ( ) Daughter ( ) Son ( ) Pharmacy ( ) Other: Physician: Dr. Montiel Patient MRN #: Reason for Call: Message: S: Pt called clinic to talk to nurse B: rx went to the wrong pharmacy A: R: Please call pt at [phone] Advice/Action: Source used: ( ) Verbalizes understanding [...] back cell phone number ( ) Source: [facility] [employer] Document Id: [id number] documented in this encounter Plan of Treatment Upcoming Encounters Date Type Specialty Care Team Description 08/17/2022 Procedure visit Neurology Marina Winter M.D., M.P.H. [address] [phone] (Wo rk) Scheduled Procedures Name Priority Associated Diagnoses Date/Time LIFT THIGH Excessive And Redundant Skin And Subcutaneous Tissue documented as of this encounter Procedures Procedure Name Priority Date/Time Associated Comments Diagnosis BI ULTRASOUND BREAST Routine 01/24/2017 2:11 PM R esults for this FOCUSED BILATERAL CDT procedure are in the results section. BI BREAST DIAGNOSTIC Routine 01/24/2017 1:24 PM R esults for this BILATERAL WITH CDT procedure are in TOMOSYNTHESIS the results section. documented in this encounter Results BI Ultrasound Breast Focused Bilateral (01/24/2017 2:11 PM CDT) Anatomical Region Laterality Modality Breast Bilateral Ultrasound Specimen (Source) Anatomical Collection Method Collection Time Re ceived Time Location / / Volume Laterality 01/24/2017 2:11 PM CDT Addenda Addendum by Provider, Ella Moreno 01/24/2017 2:11 PM CDT RAD^^^OW US Breast Bilat Limited 01/24/2017 14:11:37 Impressions 01/24/2017 2:48 PM CDT Benign. No mammographic or targeted sonographic findings of malignancy. RECOMMENDATION: Recommend future surveil nancy based on clinical grounds. BI-RADS ASSESSMENT: CODE: 2-BENIGN Appropriate letter sent. Full field digital mammography is used a nd Computer Aided Detection is performed on the digital mammogram image s. ?? BIRADS Narrative 01/24/2017 2:48 PM CDT EXAM: [place] Digital Diag Bilat Mammo w/ Manjeet o., US Breast Bilat Limited INDICATION: Bilateral breast masses ? COMPARISON: None. HISTORY: ??Bilateral breast lumps. ? DENSITY: b. There are scattered areas of fibroglandular density. FINDINGS: Imaging today included bilater al breasts tomosynthesis, bilateral full-field true lateral mammog sofi views, right breast ultrasound at 10:00 and 3 cm from nipple , and left breast ultrasound at 1:00 and 3 cm from nipple. Bilateral breast lumps correspond with benign fibrous bands as seen on mammogra m and ultrasound. No solid or cystic suspicious masses. Negative for m alignancy. I discussed findings with the patient. She was satis fied. Procedure Note Dilshad Faustin M.D. / Josh Elias M.D. - 04/23/2017 EXAM: [place] Digital Diag Bilat Mammo w/ Manjeet o., US Breast Bilat Limited INDICATION: Bilateral breast masses COMPARISON: None. HISTORY: Bilateral breast lumps. DENSITY: b. There are scattered areas of fibroglandular density. FINDINGS: Imaging today included bilater al breasts tomosynthesis, bilateral full-field true lateral mammog sofi views, right breast ultrasound at 10:00 and 3 cm from nipple , and left breast ultrasound at 1:00 and 3 cm from nipple. Bilateral breast lumps correspond with benign fibrous bands as seen on mammogra m and ultrasound. No solid or cystic suspicious masses. Negative for m alignancy. I discussed findings with the patient. She was satis fied. IMPRESSION: Benign. No mammographic or t argeted sonographic findings of malignancy. RECOMMENDATION: Recommend future surveil nancy based on clinical grounds. BI-RADS ASSESSMENT: CODE: 2-BENIGN Appropriate letter sent. Full field digital mammography is used a nd Computer Aided Detection is performed on the digital mammogram image s. BIRADS Ronit Davis R.V.T., R.D.M.S. IMG BI PROCEDURES BI Breast Diagnostic Bilateral with Tomosynthesis (01/24/2017 1:24 PM CDT) Anatomical Region Laterality Modality Breast Bilateral Mammography Specimen (Source) Anatomical Collection Method Collection Time Re ceived Time Location / / Volume Laterality 01/24/2017 1:24 PM CDT Addenda Addendum by Provider, Ella Moreno 01/24/2017 1:24 PM CDT RAD^^^OW MA Digital Diag Bilat Mammo w/ Ortiz 01/24/2017 13:24:26 Impressions 01/24/2017 2:48 PM CDT Benign. No mammographic or targeted sonographic findings of malignancy. RECOMMENDATION: Recommend future surveil nancy based on clinical grounds. BI-RADS ASSESSMENT: CODE: 2-BENIGN Appropriate letter sent. Full field digital mammography is used a nd Computer Aided Detection is performed on the digital mammogram image s. ?? BIRADS Narrative 01/24/2017 2:48 PM CDT EXAM: [place] Digital Diag Bilat Mammo w/ Manjeet o., US Breast Bilat Limited INDICATION: Bilateral breast masses ? COMPARISON: None. HISTORY: ??Bilateral breast lumps. ? DENSITY: b. There are scattered areas of fibroglandular density. FINDINGS: Imaging today included bilater al breasts tomosynthesis, bilateral full-field true lateral mammog sofi views, right breast ultrasound at 10:00 and 3 cm from nipple , and left breast ultrasound at 1:00 and 3 cm from nipple. Bilateral breast lumps correspond with benign fibrous bands as seen on mammogra m and ultrasound. No solid or cystic suspicious masses. Negative for m alignancy. I discussed findings with the patient. She was satis fied. Procedure Note Dilshad Faustin M.D. / Provider, Ella Moreno - 04/23/2017 EXAM: [place] Digital Diag Bilat Mammo w/ Manjeet o., US Breast Bilat Limited INDICATION: Bilateral breast masses COMPARISON: None. HISTORY: Bilateral breast lumps. DENSITY: b. There are scattered areas of fibroglandular density. FINDINGS: Imaging today included bilater al breasts tomosynthesis, bilateral full-field true lateral mammog sofi views, right breast ultrasound at 10:00 and 3 cm from nipple , and left breast ultrasound at 1:00 and 3 cm from nipple. Bilateral breast lumps correspond with benign fibrous bands as seen on mammogra m and ultrasound. No solid or cystic suspicious masses. Negative for m alignancy. I discussed findings with the patient. She was satis fied. IMPRESSION: Benign. No mammographic or t argeted sonographic findings of malignancy. RECOMMENDATION: Recommend future surveil nancy based on clinical grounds. BI-RADS ASSESSMENT: CODE: 2-BENIGN Appropriate letter sent. Full field digital mammography is used a nd Computer Aided Detection is performed on the digital mammogram image s. BIRADS Alexandra Hare R.T.(R), R.T.(R)(M) IMG BI PROCEDUR ES documented in this encounter Visit Diagnoses Not on filedocumented in this encounter Additional Health Concerns Assessment Noted Time PHQ-9 Depression Total Score: 9 12/27/2016 10:29 AM CS T documented as of this encounter
--- OUTSIDE RECORDS SUMMARY | 2022-07-24 15:14 | XMS_ITS | Encounter Summary ---
:1985 Author Organization [facility] Address [address] [place] [address] Care Team Providers Name Role Phone Annemarie Montiel M.D. Primary Care Provider [phone] Encounter Details Date Type Department Care Team Description 07/03/2017 Hospital Encounter HX [facility] Promise Rouse M.D. [address] [place], [place] [phone] (Wo rk) Social History [...] How often do you attend rastafarian or alevism Never 07/04/2019 services? 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 - 07/03/2017 10:07 AM CDT [id number] CHIEF COMPLAINT/REASON FOR VISIT Endometriosis. HISTORY OF PRESENT ILLNESS Nancy is a 32-year-old multiparous patient using tubal ligation, well known to me from previous episodes of care. She has documented history of endometriosis and her cyclic pelvic pain is becoming increasingly severe. Additionally the site of her prior scar is causing her increased deep pelvic pain. This is not associated with unusual bowel or bladder habits. Because of the increasing daily pain which is interspersed with cyclic pelvic pain due to endometriosis, she wants to proceed withthe next definitive surgical management step. MEDICATIONS Reviewed and are per the EMR as of 07/03/2017. ALLERGIES Reviewed and are per the EMR as of 07/03/2017. PHYSICAL EXAMINATION GENERAL: Female of stated age in no acute distress. ABDOMEN: Obese with approximately 32 cm x 8 cm pannus. is tender to palpation. Uterus is mobile and tender on manipulation. IMPRESSION/REPORT/PLAN A 32-year-old multiparous patient using tubal ligation for contraception with history of endometriosis. She would like to proceed with total abdominal hysterectomy and preservation of the ovaries usinga long transverse incision. Shar Tejeda M.D./pepe Electronically Signed By: SHAR TEJEDA MD On: 07/05/2017 03:15 PM Source: [facility] Document Id: [id number] documented in this encounter Miscellaneous Notes Miscellaneous - Shar Tejeda M.D. - 07/03/2017 12:02 PM CDT Ambulatory Patient Summary [address] [id number] Visit Information Name: NANCY PHILLIPS [facility] Number: [id number] Current Date: 07/03/2017 12:02:54 Physicians Attending Provider: SHAR TEJEDA MD Primary [...] day as needed for pain with food venlafaxine (Effexor XR 75 mg oral capsule, extended release) 1 cap, Oral, once a day Stop Taking the Following Medications: docusate-senna (Senna S 50 mg-8.6 mg oral tablet) phentermine (phentermine 37.5 mg oral tablet) topiramate (Topamax 25 mg oral tablet) Medication list as of 07-03-17 12:02 Attention: If you have any medications at [...] Electronically Signed By: SHAR TEJEDA MD Signed On:03-JUL-2017 12:02:46 Your Allergies & Intolerances Substance Reaction Symptoms [...] Your Upcoming Appointments Date Time Location Provider 07/17/2017 11:15 [facility] Oskar RED, Tammy Noriega 08/09/2017 13:15 [facility]OVING W[facility]ER Ayanna Xie NP 08/21/2017 10:30 [facility] Nicki Montiel MD 09/06/2017 13:15 [facility] Ileana RED, Shar Regalado Attention: Contact your local Clinic if [...] if you dont have one. Go to [email or web address] and click on Create Your Account. Then, follow the directions to complete the online form. Youll be asked for your [facility] number which you can find at the top of this document. Your Goals/Additional instructions: Source: [facility] POWERCHART Document Id: [id number] Miscellaneous - Shar Tejeda M.D. - 07/03/2017 12:02 PM CDT Ambulatory Discharge Medication List [facility] [address] [place] [id number] Visit Information Name: NANCY PHILLIPS [facility] Number: [id number] Current Date: 07/03/2017 12:02:53 Attending Provider: SHAR TEJEDA MD Primary Care [...] day as needed for pain with food venlafaxine (Effexor XR 75 mg oral capsule, extended release) 1 cap, Oral, once a day Stop Taking the Following Medications: docusate-senna (Senna S 50 mg-8.6 mg oral tablet) phentermine (phentermine 37.5 mg oral tablet) topiramate (Topamax 25 mg oral tablet) Medication list as of 07-03-17 12:02 Attention: If you have any medications at [...] Electronically Signed By: SHAR TEJEDA MD Signed On:03-JUL-2017 12:02:46 Additional Information: Source: [facility] POWERCHART Document Id: [id number] Miscellaneous - Dwayne Arroyo - 07/03/2017 10:22 AM CDT Adult Bankman Intake/History Adult Bankman Intake/History Entered On: 07/03/2017 10:30 CDT Performed On: 07/03/2017 10:22 CDT by DWAYNE ARROYO Intake Chief Complaint : hysterectomy consult and check scar tissue LMP Date : 06-08-17 Systolic Blood Pressure : 102 mmHg Diastolic Blood Pressure : 66 mmHg NIBP Mean : 78 mmHg BP Location : Left upper extremity Blood Pressure Cuff Size : Large Height : 164 cm(Converted to: 5 ft 5 inch(es), 65 inch(es)) Actual Weight : 125.1 kg(Converted to: 275 lb 13 oz) Dosing Weight Clinic : 125.1 kg Clinic BSA : 2.39 Body Mass Index : 46.51 kg/m2 DWAYNE ARROYO - 07/03/2017 10:22 CDT General Info Information Given By : Patient Preferred Communication Mode : Verbal Languages : Vietnamese Is Patient Female and 13-50 no hysterectomy : Yes Status : Patient denies Are you ? : No DWAYNE ARROYO - 07/03/2017 10:22 CDT Subjective Pain Symptoms : No DWAYNE ARROYO - 07/03/2017 10:22 CDT Dependent Habits Exposure to Tobacco Smoke : Other: never Smoking Status : Never smoker Tobacco 2A : No Tobacco Use/Currently Using : No Tobacco Use/Last 30 Days : No Tobacco Use/Last 12 months : No DWAYNE ARROYO - 07/03/2017 10:22 CDT Caffeine Use Grid Caffeine Use : Current Type : Soft drinks Frequency : Daily Amount : regular 1-2 cans daily DWAYNE ARROYO - 07/03/2017 10:22 CDT Source: [employer] Document Id: [id number] CDT!36 documented in this encounter Plan of Treatment Upcoming Encounters Date Type Specialty Care Team Description 08/17/2022 Procedure visit Neurology Marina Winter M.D., M.P.H. [address] [phone] (Wo rk) Scheduled Procedures Name Priority Associated Diagnoses Date/Time LIFT THIGH Excessive And Redundant Skin And Subcutaneous Tissue documented as of this encounter Visit Diagnoses Not on filedocumented in this encounter Additional Health Concerns Assessment Noted Time PHQ-9 Depression Total Score: 9 12/27/2016 10:29 AM CS T documented as of this encounter Care Teams Sample Examiner Relationship Specialty Start Date End Date Annemarie Montiel M.D. PCP - General 04/19/172199 [address] [place] [phone] documented as of this encounter
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
--- OUTSIDE RECORDS SUMMARY | 2022-07-24 15:14 | XMS_ITS | Encounter Summary ---
:1985 Author Organization [facility] Address [address] [place] [address] Care Team Providers Name Role Phone Annemarie Montiel M.D. Primary Care Provider [phone] Encounter Details Date Type Department Care Team Description 08/03/2017 Hospital Encounter HX [facility] Promise Rouse M.D. [address] [place], [place] [phone] (Wo rk) Social History [...] How often do you attend taoist or christian Never 07/04/2019 services? 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 - 08/03/2017 11:17 AM CDT CHIEF COMPLAINT: Postoperative examination, interim check. HISTORY OF PRESENT ILLNESS: This patient presents for an acute check up because she is having some urinary burning. No fevers nor chills. SHe is currently on two antibiotics for wound infection prophylaxis after large pannus removal. CURRENT MEDICATIONS and ALLERGIES have been reviewed and are current in the EMR as of today's date. Physical exam: Vital signs are reviewed, stable, and in the normal range as documented in the EMR as of today's date. General: well nourished, well developed female in no acute distress. Abdomen: incision is clean dry, intact UA shouws luekocyte esterase and signs of phillip UTI IMPRESSION/REPORT/PLAN: Post operative exam, complicated by UTI. She will push fluids and stay on the existing course of antibiotics. Shar Del Angel Electronically Signed By: SHAR TEJEDA MD On: 08/03/2017 11:19 AM Source: [facility] POWERCHART Document Id: [id number] documented in this encounter Miscellaneous Notes Miscellaneous - Shar Tejeda M.D. - 08/03/2017 11:16 AM CDT Ambulatory Patient Summary [facility] [address] [facility] [place] [id number] Visit Information Name: NANCY PHILLIPS [facility] Number: [id number] Current Date: 08/03/2017 11:16:44 Physicians Attending Provider: SHAR TEJEDA MD Primary [...] the Following Medications: Medication list as of 08-03-17 11:16 Attention: If you have any medications at [...] Electronically Signed By: SHAR TEJEDA MD Signed On:03-AUG-2017 11:16:15 Your Allergies & Intolerances Substance Reaction Symptoms [...] Date Time Location Provider 08/09/2017 13:15 [facility] [employer]OMING M[employer] SUPERVISOR Queen PARUL Ayanna Sharif 08/21/2017 10:30 [facility] Nicki Montiel MD 09/06/2017 13:15 [facility] [employer]LO[employer] SUPERVISOR Shar Tejeda MD Attention: Contact your local Clinic if [...] if you dont have one. Go to [email or web address] and click on Create Your Account. Then, follow the directions to complete the online form. Youll be asked for your [facility] number which you can find at the top of this document. Your Goals/Additional instructions: Source: [facility] POWERCHART Document Id: [id number] Miscellaneous - Shar Tejeda M.D. - 08/03/2017 11:16 AM CDT Ambulatory Discharge Medication List [facility] [address] [place] [id number] Visit Information Name: NANCY PHILLIPS [facility] Number: [id number] Current Date: 08/03/2017 11:16:43 Attending Provider: SHAR TEJEDA MD Primary Care [...] the Following Medications: Medication list as of 08-03-17 11:16 Attention: If you have any medications at [...] Electronically Signed By: SHAR TEJEDA MD Signed On:03-AUG-2017 11:16:15 Additional Information: Source: [facility] POWERCHART Document Id: [id number] Miscellaneous - Laverne Conti, L.P.N. 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32 kg/m2 LAVERNE CONTI LPN - 08/03/2017 11:03 CDT General Info Languages : Senegalese Is Patient Female and 13-50 no hysterectomy : No LAVERNE CONTI GAS ENGINE PERFORMANCE ENGINEER - 08/03/2017 11:03 CDT Subjective Pain Symptoms : No LAVERNE CONTI GAS ENGINE PERFORMANCE ENGINEER - 08/03/2017 11:03 CDT Dependent Habits Exposure to Tobacco Smoke : Other: never Smoking Status : Never smoker Tobacco 2A : No Tobacco Use/Currently Using : No Tobacco Use/Last 30 Days : No Tobacco Use/Last 12 months : No LAVERNE CONTI [facility] - 08/03/2017 11:03 CDT Caffeine Use Grid Caffeine Use : Current Type : Soft drinks Frequency : Daily Amount : regular 1-2 cans daily LAVERNE CONTI [facility] - 08/03/2017 11:03 CDT Source: [employer] Document Id: [id number]!32 documented in this encounter Plan of Treatment Upcoming Encounters Date Type Specialty Care Team Description 08/17/2022 Procedure visit Neurology Marina Winter M.D., M.P.H. [address] [place] [phone] (Wo rk) Scheduled Procedures Name Priority Associated Diagnoses Date/Time LIFT THIGH Excessive And Redundant Skin And Subcutaneous Tissue documented as of this encounter Visit Diagnoses Not on filedocumented in this encounter Additional Health Concerns Assessment Noted Time PHQ-9 Depression Total Score: 9 12/27/2016 10:29 AM CS T documented as of this encounter Care Teams Tie In Machine Operator Relationship Specialty Start Date End Date Annemarie Montiel M.D. PCP - General 04/19/17 [address] [place] [phone] documented as of this encounter
--- OUTSIDE RECORDS SUMMARY | 2022-07-24 15:14 | XMS_ITS | Encounter Summary ---
:1985 Author Organization [facility] Address [address] [place] [address] Care Team Providers Name Role Phone Unavailable Primary Care Provider Unavailable Encounter Details Date Type Department Care Team Description 01/11/2017 Hospital Encounter HX [facility] Ranjit Lee M.D. [address], [place] [phone] (Wo rk) Social History [...] 03/29/2020 relatives? How often do you attend sikhism or oriental orthodox Never 07/04/2019 services? 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 as of this encounter Last Filed Vital Signs Vital Sign Reading Time Taken Comments Blood Pressure 110/74 01/11/2017 10:23 AM ASSOCIATE CHEMIST Pulse - - Temperature - - Respiratory Rate - - Oxygen Saturation - - Inhaled Oxygen Concentration - - Weight 117 kg (257 lb 15 oz) 01/11/2017 10:23 AM ASSOCIATE CHEMIST Height 164 cm (5' 4.57) 01/11/2017 10:01 AM ASSOCIATE CHEMIST Body Mass Index 43.5 01/11/2017 10:01 AM ASSOCIATE CHEMIST documented in this encounter Medications at Time of Discharge Medication Sig Dispensed Refills Start Date End Date venlafaxine XR (EFFEXOR Take 1 capsule by 0 12/2703/27/2018 XR) 75 mg 24 hr capsule mouth daily. documented as of this encounter H&P Notes Kristi Melissa M.D. - 01/11/2017 10:01 AM CST [id number] REVISION HISTORY January 17, 2017 at 7:31 a.m. - Modification to the physical exam and IRP by Documentation Services Department. CHIEF COMPLAINT/REASON FOR VISIT visit. HISTORY OF PRESENT ILLNESS Nancy is a 31-year-old para 4-0-1-4 female, who is 5 weeks and 6 days status post repeat low transverse section with bilateral tubal ligation who presents for visit today. Nancy reports that overall she is doing well. She reports that the wound is healing well and she does not have pain in the area. She is voiding, ambulating and tolerating a regular diet without difficulty. She is having constipation occasionally and is wondering if she can continue to use this asneeded. The rash that she had shortly after surgery has resolved and not recurred. She is not breast-feeding her baby. Her lochia stopped about 2 weeks ago but she does have occasional coppery tinged vaginal discharge that is very light. She does report some difficulty with memory like forgetting where she parked in the parking lot at [employer] or what she is going to say in the middle of a conversation and reports that her depression is overall well managed though she did have a bilateral tubal ligation and her had a vasectomy and she occasionally has episodes where she regrets doing that because of the finality of it all. Overall, she is not worried about that. MEDICATIONS See medication list updated in the EMR today. ALLERGIES See allergy list updated in the EMR today. SYSTEMS REVIEW GENERAL: No fevers, chills, unintentional weight loss or weight gain. Positive for fatigue. HEENT: No changes in hearing, no sore throat or nasal congestion. Positive for changes in vision and she had an eye exam yesterday and had a slight change in her vision. CARDIOVASCULAR: No chest pain, irregularheartbeat or racing heart. RESPIRATORY: No shortness of breath, cough or wheeze. GASTROINTESTINAL: No nausea, vomiting, diarrhea, constipation or abdominal pain. GENITOURINARY: No pain or burning with urination, no irregular vaginal bleeding, heavy periods, painful periods, abnormal vaginal discharge,leaking urine, leaking stool or gas. SKIN: No rashes or skin lesions. BREASTS: No masses or lumps, no discharge from the nipples. NEUROLOGIC: Positive for difficulty with memory - see HPI. PSYCHIATRIC:Positive for depression - see HPI. ENDOCRINE: No heat intolerance, cold intolerance, excessive thirst or hair loss. PAST MEDICAL/SURGICAL HISTORY PAST MEDICAL HISTORY: See problem list updated in the EMR today. PAST SURGICAL HISTORY: See procedure list updated in the EMR today. VIDEO CONFERENCE SPECIALIST HISTORY: Para 4-0-1-4 female status post 4 sections at full term and 1 spontaneous . She underwent bilateral tubal ligation for contraception. She has a history of genital herpes but has not had an outbreak in several years as well as a history of chlamydia that was treated, she has no history of abnormal Pap smears. SOCIAL HISTORY She is to her , Samir and is a hveg-kb-yvcq mom. She denies alcohol, tobacco or drug use. She denies any concerns about abuse. FAMILY HISTORY See family history list updated in the EMR today. VITAL SIGNS See results review section updated in the EMR today. PHYSICAL EXAMINATION GENERAL: Well-nourished female, in no acute distress. HEAD: Normocephalic, atraumatic. EENT: Vision and hearing grossly intact. BREASTS: Symmetric bilaterally. In the upper outer quadrant of the left breast there is an area of dense breast tissue that is slightly irregular in contour but mobile, likely consistent with fibrocystic breast changes. There is a similar area of more dense breast tissue in the upper outer quadrant ofthe patient's right breast that is slightly smaller in size and slightly less prominent than on the left. These areas are mobile. These areas were both marked. Nipples without inversion. Skin without lesions or abnormalities. Positive drainage from the nipples consistent with . LYMPH NODES: No supraclavicular, infraclavicular, or axillary lymphadenopathy noted. HEART: Regular rate and rhythm. No murmurs, rubs, or gallops. CHEST: Clear to auscultation bilaterally. No wheezes or rales. ABDOMEN: Soft, nondistended, nontender. Normoactive bowel sounds. No masses palpable. Well healed Pfannenstiel skin incision. PELVIC: External genitalia without lesions or abnormalities. Normal pubic hair distribution. Urethral meatus normal in location and appearance, without masses. Vaginal mucosa pink and moist with a small amount of thin white discharge present in the posterior vaginal fornix. Cervix appears parous and is without lesions or abnormalities. The uterus is small, nontender, normal in size. No adnexal massesor tenderness noted. LOWER EXTREMITIES: Nontender, no edema. SKIN: No rashes or lesions. NEUROLOGIC: Alert and oriented x3. IMPRESSION/REPORT/PLAN A 31-year-old para 4-0-1-4 female who is 5 weeks 6 days status post repeat low transversecesarean section with bilateral tubal ligation who presents for visit today. 1. progress: Other than the constipation Nancy is making excellent progress.She is voiding, ambulating and tolerating a regular diet without difficulty and her lochia has resolved. Her wound has healed well. 2. Constipation: She does continue to have occasional constipation, this is likely due to her section and the hormones in the period. She was given a refill of the senna to use as needed and encouraged to drink plenty of fluids. 3. Contraception: She underwent tubal ligation and her underwent vasectomy. She does report occasional episodes of regrets but knows that this was the best decision. 4. History of a GDMA1: She will return in the near future for a 2-hour glucose tolerance test. We will be in touch with her with the results. 5. Major depressive disorder: We restarted Nancy on the Effexor 150 mg by mouth daily at the time of delivery but she felt that dose was too high. Therefore, we cut back to 75 mg by mouth daily and she is doing very well with that. Overall, she reports that she is doing well from a mood standpoint though she does have episodes of regret regarding her sterilization. 6. Bilateral breast masses: These areas are likely consistent with fibrocystic breast changes; however, given the size and that these areas are particularly prominent I am going to order diagnostic ultrasounds on both areas. 7. Vaginal discharge: The discharge the patient describes has an unusual color. Due to this we will evaluate for infection with a vaginitis panel. 8. Followup: With her primary care provider as needed since she has now been started on weight loss medication and also with me as needed. Kristi Melissa M.D./pepe Electronically Signed By: KRISTI MELISSA MD On: 01/16/2017 11:51 PM Kristi Melissa M.D./tc Electronically Signed By: KRISTI MELISSA MD On: 01/16/2017 11:51 PM Co-Signed By: KRISTI MELISSA MD On: 01/20/2017 04:00 PM Source: [facility] MHSDOLBEYNONRADSYS Document Id: [id number] documented in this encounter Miscellaneous Notes Miscellaneous - Kristi Melissa M.D. - 01/15/2017 7:22 PM CDT Ambulatory Discharge Medication List [address] [id number] Visit Information Name: NANCY PHILLIPS [facility] Number: [id number] Current Date: 01/15/2017 19:22:53 Attending Provider: KRISTI MELISSA MD Primary Care Provider: MAILE ZARATE MD NANCY PHILLIPS has been given the following list of medications: Your Medications It is important to take your medications as directed. Use a pill box or chart to help remind you to take your medications. Please let your doctor or nurse know if you have problems taking your medications. Medication/Strength Dose Route Frequency Indications/Special Instructions/Comments/Notes docusate-senna (Senna S 50 mg-8.6 mg oral tablet) 2 tab(s) Oral once a day (at bedtime) as needed for Constipation venlafaxine (Effexor XR 75 mg oral capsule, extended release) 75 mg Oral once a day phentermine (phentermine 37.5 mg oral tablet) 37.5 mg Oral once a day naproxen (naproxen 250 mg oral tablet) 250 mg Oral two times a day as needed for pain with food Attention: If you have any medications at [...] Electronically Signed By: KRISTI MELISSA MD Signed On:15-JAN-2017 19:22:52 Additional Information: Source: [facility] POWERCHART Document Id: [id number] Miscellaneous - Kristi Melissa M.D. - 01/15/2017 7:22 PM CDT Ambulatory Patient Summary [address] [id number] Visit Information Name: NANCY PHILLIPS [facility] Number: [id number] Current Date: 01/15/2017 19:22:54 Physicians Attending Provider: KRISTI MELISSA MD Primary Care Provider: MAILE ZARATE [...] you have problems taking your medications. Medication/Strength Dose Route Frequency Indications/Special Instructions/Comments/Notes docusate-senna (Senna S 50 mg-8.6 mg oral tablet) 2 tab(s) Oral once a day (at bedtime) as needed for Constipation venlafaxine (Effexor XR 75 mg oral capsule, extended release) 75 mg Oral once a day phentermine (phentermine 37.5 mg oral tablet) 37.5 mg Oral once a day naproxen (naproxen 250 mg oral tablet) 250 mg Oral two times a day as needed for pain with food Attention: If you have any medications at [...] Electronically Signed By: KRISTI MELISSA MD Signed On:15-JAN-2017 19:22:52 Your Allergies & Intolerances Substance Reaction Symptoms [...] Your Upcoming Appointments Date Time Location Provider 01/24/2017 13:30 [facility] Mammo [facility] Room 2 01/24/2017 15:00 [facility] Ultrasound [facility] Room 1 02/07/2017 09:30 [facility] 03/27/2017 11:30 [facility] FamilyPrac Dinesh RED, Nicki Zuniga Attention: Contact your [...] if you dont have one. Go to [email or web address] and click on Create Your Account. Then, follow the directions to complete the online form. Youll be asked for your [facility] number which you can find at the top of this document. Your Goals/Additional instructions: Source: [facility] [employer]oc Document Id: [id number] Miscellaneous - Martha Lomeli L.PCiera - 01/11/2017 10:23 AM CST Adult Machine Trimmer Intake/History Adult Machine Trimmer Intake/History Entered On: 01/11/2017 10:25 ASSOCIATE CHEMIST Performed On: 01/11/2017 10:23 ASSOCIATE CHEMIST by MARTHA LOMELI LPN Intake Chief Complaint : pp c/s 12/01 Systolic Blood Pressure : 110 mmHg Diastolic Blood Pressure : 74 mmHg NIBP Mean : 86 mmHg Blood Pressure Cuff Size : Regular Actual Weight : 117 kg(Converted to: 257 lb 15 oz) Dosing Weight Clinic : 117 kg MARTHA LOMELI LPN - 01/11/2017 10:23 ASSOCIATE CHEMIST General Info Information Given By : Patient Languages : Macanese Is Patient Female and 13-50 no hysterectomy : MARTHA Wilson LPN - 01/11/2017 10:23 ASSOCIATE CHEMIST Subjective Pain Symptoms : MARTHA Wilson LPN - 01/11/2017 10:23 ASSOCIATE CHEMIST Dependent Habits Exposure to Tobacco Smoke : Other: never Smoking Status : Never smoker Tobacco 2A : No Tobacco Use/Currently Using : No Tobacco Use/Last 30 Days : No Tobacco Use/Last 12 months : No MARTHA LOMELI LPN - 01/11/2017 10:23 ASSOCIATE CHEMIST Caffeine Use Grid Caffeine Use : Current Type : Soft drinks Frequency : Daily Amount : regular 1-2 cans daily MARTHA LOMELI LPN - 01/11/2017 10:23 ASSOCIATE CHEMIST [facility] Document Id: [id number] ASSOCIATE CHEMIST!28 CIATE CHEMIST documented in this encounter Plan of Treatment Upcoming Encounters Date Type Specialty Care Team Description 08/17/2022 Procedure visit Neurology Marina Winter M.D., M.P.H. [address] [phone] (Wo rk) Scheduled Procedures Name Priority Associated Diagnoses Date/Time LIFT THIGH Excessive And Redundant Skin And Subcutaneous Tissue documented as of this encounter Procedures Procedure Name Priority Date/Time Associated Diagnosis Comme nts VAGINITIS BATTERY, Routine 01/11/2017 1:04 PM Res ults for this DNA (GENITAL) ASSOCIATE CHEMIST procedure are in the results section. documented in this encounter Results VAGINITIS BATTERY, DNA (GENITAL) (01/11/2017 1:04 PM ASSOCIATE CHEMIST) Component Value Ref Test Analysis Performed At [facility] Range Method Time Signature HXVaginitis POWERCHART Battery, DNA (Genital) HXFinal Trichomonas POWERCHART vaginalis DNA negative HXFinal Gardnerella POWERCHART vaginalis DNA negative HXFinal Heidi species POWERCHART DNA negative HXFinal Reference: POWERCHART Negative Specimen (Source) Anatomical Collection Method Collection Time Re ceived Time Location / / Volume Laterality Vagina 01/11/2017 1:04 PM ASSOCIATE CHEMIST Kristi Melissa M.D. LAB HISTORICAL ORDERS Performing Organization Address City/State/ZIP Code Phon e Number POWERCHART documented in this encounter Visit Diagnoses Not on filedocumented in this encounter Additional Health Concerns Assessment Noted Time PHQ-9 Depression Total Score: 9 12/27/2016 10:29 AM CS T documented as of this encounter
--- OUTSIDE RECORDS SUMMARY | 2022-07-24 15:14 | XMS_ITS | Encounter Summary ---
:1985 Author Organization [facility] Address [address] [place] [address] Care Team Providers Name Role Phone Annemarie Montiel M.D. Primary Care Provider [phone] Encounter Details Date Type Department Care Team Description 07/27/2017 Hospital Encounter HX NO MAPPING Nahun Tejeda M.D. [address] [place], [place] [phone] (Wo rk) Social History [...] 03/29/2020 relatives? How often do you attend tenriism or anglican Never 07/04/2019 services? 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 [address] [phone] (Wo rk) Scheduled Procedures Name Priority Associated Diagnoses Date/Time LIFT THIGH Excessive And Redundant Skin And Subcutaneous Tissue documented as of this encounter Procedures Procedure Name Priority Date/Time Associated Diagnosis Comme nts CT UROGRAM WITH IV Routine 07/27/2017 11:23 AM Re sults for this CONTRAST CDT procedure are i n the results section. SURGICAL PATHOLOGY Routine 07/25/2017 12:00 AM Re sults for this CDT procedure are i n the results section. documented in this encounter Results CT Urogram with IV Contrast (07/27/2017 11:23 AM CDT) Anatomical Region Laterality Modality Abdomen, Pelvis Computed Tomography Specimen (Source) Anatomical Collection Method Collection Time Re ceived Time Location / / Volume Laterality 07/27/2017 11:23 AM CDT Addenda Addendum by ProviderJosh M.D. o n 07/27/2017 11:23 AM CDT RAD^^^OW CT Urogram 07/27/2017 11:23:10 CT Urogram Addendum by ProviderJosh M.D. o n 07/27/2017 11:45 AM CDT RAD^^^OW CT Urogram 07/27/2017 11:45:32 CT Urogram Impressions 07/27/2017 12:21 PM CDT 1. ??Post op changes recent hysterectomy and panniculectomy. 2. Nonspecific diffuse thickening of erna dder wall. 3. Pancolonic fecal retention. Narrative 07/27/2017 12:21 PM CDT EXAM: CT Urogram INDICATION: s/p hysterectomy and pannicu lectomy. Urinary hesitancy required prolonged catheterization ?? AGE: 32 years-old COMPARISON: None. ?? TECHNIQUE: CT urogram with IV 140 mL Omn ipaque contrast. With and without contrast. FINDINGS: ?? Right system: Right kidney and ureter wiseman ve no stones. No hydronephrosis. No suspicious right kidn ey masses. No filling defects of renal pelvis or ureter. 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 Left kidney and ureter have no stones. No hyd ronephrosis. No suspicious left kidney masses. No filling defects o f renal pelvis or ureter. Bladder: Gas in the bladder is presumabl y due to Adler catheter. Diffuse bladder wall thickening is nonsp ecific and can be from decompressed state, be reactive to the a djacent postop changes, or be from cystitis. Negative for leak from th e bladder. Non-urogram findings: Postop changes of recent hysterectomy and panniculectomy. Edema and small gas with in the uterine surgical bed is presumably postop related. Surgical drai ns in the anterior abdominal wall subcutaneous tissues with associate d small foci of gas are presumably postoperative. No drainable f luid collection. Tiny fat-containing umbilical hernia. Moderat e pancolonic fecal retention. Normal appearing bilateral ovaries. Appe ndix contains tiny appendicoliths, though is not inflamed. Cholecystectomy. Otherwise negative. Procedure Note Dilshad Faustin M.D. / Josh Elias M.D. - 08/16/2017 EXAM: CT Urogram INDICATION: s/p hysterectomy and pannicu lectomy. Urinary hesitancy required prolonged catheterization AGE: 32 years-old COMPARISON: None. TECHNIQUE: CT urogram with IV 140 mL Omn ipaque contrast. With and without contrast. FINDINGS: Right system: Right kidney and ureter wiseman ve no stones. No hydronephrosis. No suspicious right kidn ey masses. No filling defects of renal pelvis or ureter. 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 Left kidney and ureter have no stones. No hyd ronephrosis. No suspicious left kidney masses. No filling defects o f renal pelvis or ureter. Bladder: Gas in the bladder is presumabl y due to Adler catheter. Diffuse bladder wall thickening is nonsp ecific and can be from decompressed state, be reactive to the a djacent postop changes, or be from cystitis. Negative for leak from th e bladder. Non-urogram findings: Postop changes of recent hysterectomy and panniculectomy. Edema and small gas with in the uterine surgical bed is presumably postop related. Surgical drai ns in the anterior abdominal wall subcutaneous tissues with associate d small foci of gas are presumably postoperative. No drainable f luid collection. Tiny fat-containing umbilical hernia. Moderat e pancolonic fecal retention. Normal appearing bilateral ovaries. Appe ndix contains tiny appendicoliths, though is not inflamed. Cholecystectomy. Otherwise negative. IMPRESSION: 1. Post op changes recent hysterectomy a nd panniculectomy. 2. Nonspecific diffuse thickening of erna dder wall. 3. Pancolonic fecal retention. Chhaya Martin(R)(CT), R.TRodrigo(R) IMG CT PROCEDURES Pathology Surgical Pathology (07/25/2017 12:00 AM CDT) Specimen (Source) Anatomical Location Collection Method / Collectio n Time Received Time / Laterality Volume 07/25/2017 Narrative [facility] - 07/27/2017 4:20 PM CDT PATIENT IMAGES Choose the Image button to view related documents. Historical Provider LAB SURG PATH ORDERABLES Performing Organization Address City/State/ZIP Code Phon e Number [facility] documented in this encounter Visit Diagnoses Not on filedocumented in this encounter Additional Health Concerns Assessment Noted Time PHQ-9 Depression Total Score: 9 12/27/2016 10:29 AM CS T documented as of this encounter Care Teams Diesel Engine Pipe Fitter Relationship Specialty Start Date End Date Annemarie Montiel M.D. PCP - General 04/19/17 [address] [place] [phone] documented as of this encounter
--- OUTSIDE RECORDS SUMMARY | 2022-07-24 15:14 | XMS_ITS | Encounter Summary ---
:1985 Author Organization [facility] Address [address] [place] [address] Care Team Providers Name Role Phone Annemarie Montiel M.D. Primary Care Provider [phone] Encounter Details Date Type Department Care Team Description 08/02/2017 Hospital Encounter HX [facility] Nahun Tejeda M.D. [address] [place], [place] [phone] (Wo rk) Social History [...] 03/29/2020 relatives? How often do you attend moravian or restoration Never 07/04/2019 services? 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 [address] [place] [phone] (Wo rk) Scheduled Procedures Name Priority Associated Diagnoses Date/Time LIFT THIGH Excessive And Redundant Skin And Subcutaneous Tissue documented as of this encounter Procedures Procedure Name Priority Date/Time Associated Comments Diagnosis URINALYSIS, ROUTINE Routine 08/02/2017 3:43 PM Re sults for this CDT procedure are i n the results section. URINE MICROSCOPIC Routine 08/02/2017 3:43 PM Resu lts for this CDT procedure are i n the results section. documented in this encounter Results (ABNORMAL) Urine Microscopic (08/02/2017 3:43 PM CDT) [facility] Method Time Signature HXUR WBC. 21-30 (A) None Seen POWERCHART HPF HXUR RBC. Occ-2 None Seen POWERCHART HPF Casts, Hyaline 1-3 (A) None Seen POWERCHART LPF Squamous 4-10 (A) None Seen POWERCHART Epithelial HPF Hyphae Yeast Present (A) None Seen POWERCHART Urine HXUR Bacteria, Present (A) None Seen POWERCHART Specimen Anatomical Collection Method Collection Time Receive d Time (Source) Location / / Volume Laterality Urine, First 08/02/2017 3:43 PM 7 3:43 Voided CDT PM CDT Nahun Tejeda M.D. LAB URINE ORDERABLES Performing Organization Address City/State/ZIP Code Phon e Number POWERCHART POWERCHART NA (ABNORMAL) Urinalysis, Routine (08/02/2017 3:43 PM CDT) [facility] Method Time Signature HXUr Color Yellow Yellow POWERCHART Clarity Cloudy (A) Clear POWERCHART Glucose Negative Negative POWERCHART HXBILIRUBIN Negative Negative POWERCHART Ketones, QL(U) Negative Negative POWERCHART Specific 1.021 1.001 - POWERCHART Rector, POCT, 1.035 U Comment: Reference Range Specific Rector: 1.000-1.035 pH, POCT, Urine 5.0 POWERCHART Comment: UA pH Reference Range pH: 5.0-8.0 Protein, Ur, Dip Trace Negative POWERCHART Urobilinogen 0.2 0.2 MGDL POWERCHART Comment: Reference Range Urobilinogen: 0.2-1.0 mg/dL HXNITRITE Negative Negative POWERCHART HXBLOOD Large (A) Negative POWERCHART Leukocyte Esterase Small (A) Negative POWERCHART Specimen (Source) Anatomical Collection Method Collection Time Re ceived Time Location / / Volume Laterality Urine, First 08/02/2017 3:43 PM Voided CDT Nahun Tejeda M.D. LAB URINE ORDERABLES Performing Organization Address City/State/ZIP Code Phon e Number POWERCHART POWERCHART NA documented in this encounter Visit Diagnoses Not on filedocumented in this encounter Additional Health Concerns Assessment Noted Time PHQ-9 Depression Total Score: 9 12/27/2016 10:29 AM CS T documented as of this encounter Care Teams Audio Visual Secretary Relationship Specialty Start Date End Date Annemarie Montiel M.D. PCP - General 04/[address] [place] [address] documented as of this encounter
--- OUTSIDE RECORDS SUMMARY | 2022-07-24 15:14 | XMS_ITS | Encounter Summary ---
:1985 Author Organization [facility] Address [address] [place] [address] Care Team Providers Name Role Phone Unavailable Primary Care Provider Unavailable Encounter Details Date Type Department Care Team Description 02/07/2017 Hospital Encounter HX [facility] Leonel Pandya P.ARodrigo -Nadya [address] [place] [address] (Wo rk) Social History Tobacco [...] 03/29/2020 relatives? How often do you attend buddhism or jainism Never 07/04/2019 services? 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 tablet venlafaxine XR (EFFEXOR Take 1 capsule by 0 12/2703/27/2018 XR) 75 mg 24 hr capsule mouth daily. documented as of this encounter Nursing Notes Shira Nicholas C.M.A. - 02/07/2017 9:40 AM CDT Nurse Only Documentation Nurse Only Documentation Entered On: 02/07/2017 9:40 CDT Performed On: 02/07/2017 9:40 CDT by SHIRA NICHOLAS CMA Nurse Only Documentation Nurse Only Visit Documentation : [facility] for refill on phentermine SHIRA NICHOLAS CMA - 02/07/2017 9:40 CDT Vitals/Ht/Wt Apical Heart Rate : 74 /min Systolic Blood Pressure : 127 mmHg Diastolic Blood Pressure : 68 mmHg NIBP Mean : 88 mmHg BP Location : Right upper extremity Blood Pressure Cuff Size : Large Height : 164 cm(Converted to: 5 ft 5 inch(es), 65 inch(es)) Actual Weight : 116.5 kg(Converted to: 256 lb 13 oz) Weight Source : Standing scale Dosing Weight Clinic : 116.5 kg Clinic BSA : 2.3 Body Mass Index : 43.31 kg/m2 SHIRA NICHOLAS CMA - 02/07/2017 9:40 CDT [facility] [employer] POWER[employer]etc[employer] Document Id: [id number] CDT!16 documented in this encounter Miscellaneous Notes Miscellaneous - Shira Nicholas C.M.A. - 02/07/2017 9:43 AM CDT *General Message/Bp/Wt check for phentermine Document Contains Addenda Addendum by KAYLEN BENSON LPN on February 08, 2017 07:52:36 CDT faxed to tessa higginbotham Addendum by MAILE ZARATE MD on February 07, 2017 19:45:00 CDT From: MAILE ZARATE MD To: [facility] 2W Nurse; Sent: 02/07/2017 19:45:00 CDT Subject: RE: *General Message/Bp/Wt check for phentermine Addendum by MAILE ZARATE MD on February 07, 2017 19:44:55 CDT Approved with modifications: Order:phentermine (phentermine 37.5 mg oral tablet) 1 tab(s) PO Daily Qty: 42 tab(s) Refills: 0 Substitutions Allowed Print - [id number] (from [id number]) in session 157 Signed by MAILE ZARATE MD 02/07/2017 19:44:44 Addendum by LISA CASTRO CMA on February 07, 2017 09:52:21 CDT From: LISA CASTRO CMA ([facility] 2W Nurse) To: MAILE ZARATE MD; Sent: 02/07/2017 09:52:21 CDT Subject: RE: *General Message/Bp/Wt check for phentermine phertermine is pending signature, please advise From: SHIRA NICHOLAS CMA ([facility]/Travel Nurse) To: [facility] 2W Nurse; Sent: 02/07/2017 09:43:34 CDT Subject: *General Message/Bp/Wt check for phentermine S Patient presents to [facility] for BP/WT check for refill on phentermine B Refill proposal has been submitted previously, PCP waiting on bp/wt A Previous BP/WT on 01-11-17 was 110/74 WT: 117 Today's BP/WT on 02-07-17 is: 127/68 P: 74 WT: 116.5 R Patient informed this information would be relayed to his/her PCP. Please contact the patient directly if you have any further comments, questions, or concerns. Thank You, [facility] Source: [facility] POWERCHART Document Id: [id number] Electronically signed by Conversion, [facility] Manager Switch [id number] at 04/17/2017 7:29 AM CDT documented in this encounter Plan of Treatment Upcoming Encounters Date Type Specialty Care Team Description 08/17/2022 Procedure visit Neurology Marina Winter M.D., M.P.H. [address] [place] [phone] (Wo rk) Scheduled Procedures Name Priority Associated Diagnoses Date/Time LIFT THIGH Excessive And Redundant Skin And Subcutaneous Tissue documented as of this encounter Visit Diagnoses Not on filedocumented in this encounter Additional Health Concerns Assessment Noted Time PHQ-9 Depression Total Score: 9 12/27/2016 10:29 AM CS T documented as of this encounter
--- OUTSIDE RECORDS SUMMARY | 2022-07-24 15:14 | XMS_ITS | Encounter Summary ---
:1985 Author Organization [facility] Address [address] [place] [address] Care Team Providers Name Role Phone Unavailable Primary Care Provider Unavailable Encounter Details Date Type Department Care Team Description 12/01/2016 Hospital Encounter HX [facility] Cassie Bruno M.D. [address] [place] [phone] Social History Tobacco Use Types [...] How often do you attend jewish or congregational Never 07/04/2019 services? 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 [address] [phone] (Wo rk) Scheduled Procedures Name Priority Associated Diagnoses Date/Time LIFT THIGH Excessive And Redundant Skin And Subcutaneous Tissue documented as of this encounter Procedures Procedure Name Priority Date/Time Associated Diagnosis Comme nts SURGICAL PATHOLOGY Routine 12/01/2016 12:00 AM Re sults for this FUNDER procedure are i n the results section. SURGICAL PATHOLOGY Routine 12/01/2016 12:00 AM Re sults for this FUNDER procedure are i n the results section. documented in this encounter Results Pathology Surgical Pathology (12/01/2016 12:00 AM FUNDER) Specimen (Source) Anatomical Location Collection Method / Collectio n Time Received Time / Laterality Volume 12/01/2016 Narrative [facility] - 12/07/2016 5:17 PM FUNDER PATIENT IMAGES Choose the Image button to view related documents. Historical Provider LAB SURG PATH ORDERABLES Performing Organization Address City/State/ZIP Code Phon e Number [facility] Pathology Surgical Pathology (12/01/2016 12:00 AM FUNDER) Specimen (Source) Anatomical Location Collection Method / Collectio n Time Received Time / Laterality Volume 12/01/2016 Narrative [facility] - 12/07/2016 5:18 PM FUNDER PATIENT IMAGES Choose the Image button to [...]
--- OUTSIDE RECORDS SUMMARY | 2022-07-24 15:14 | XMS_ITS | Encounter Summary ---
:1985 Author Organization [facility] Address [address] [place] [address] Care Team Providers Name Role Phone Annemarie Montiel M.D. Primary Care Provider [phone] Encounter Details Date Type Department Care Team Description 07/25/2017 Hospital Encounter HX NO MAPPING Nahun Tejeda M.D. [address] [place], [place] [phone] (Wo rk) Social History [...] 03/29/2020 relatives? How often do you attend cheondoism or sabianism Never 07/04/2019 services? 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 [address] [place], [place] [phone] (Wo rk) Scheduled Procedures Name Priority Associated Diagnoses Date/Time LIFT THIGH Excessive And Redundant Skin And Subcutaneous Tissue documented as of this encounter Visit Diagnoses Not on filedocumented in this encounter Additional Health Concerns Assessment Noted Time PHQ-9 Depression Total Score: 9 12/27/2016 10:29 AM CS T documented as of this encounter Care Teams Personal Investment Adviser Relationship Specialty Start Date End Date Annemarie Montiel M.D. PCP - General 04/19/17 [address], [place] [phone] documented as of this encounter
--- OUTSIDE RECORDS SUMMARY | 2022-07-24 15:14 | XMS_ITS | Encounter Summary ---
:[address] [facility] Address [address] [place] [address] Care Team Providers Name Role Phone Unavailable Primary Care Provider Unavailable Encounter Details Date Type Department Care Team Description 11/21/2016 Hospital Encounter HX [facility] Cassie Lincoln M.D. [address], [place] [phone] Social History Tobacco Use Types [...] 03/29/2020 relatives? How often do you attend synagogue or evangelical Never 07/04/2019 services? 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 [address] [phone] (Wo rk) Scheduled Procedures Name Priority Associated Diagnoses Date/Time LIFT THIGH Excessive And Redundant Skin And Subcutaneous Tissue documented as of this encounter Visit Diagnoses Not on filedocumented in this encounter Additional Health Concerns Assessment Noted Time PHQ-9 Depression Total Score: 13 06/14/2015 3:56 PM CD T documented as of this encounter
--- OUTSIDE RECORDS SUMMARY | 2022-07-24 15:14 | XMS_ITS | Encounter Summary ---
:1985 Author Organization [facility] Address [address] [place] [address] Care Team Providers Name Role Phone Unavailable Primary Care Provider Unavailable Encounter Details Date Type Department Care Team Description 02/01/2017 Hospital Encounter HX NO MAPPING Jessica Brooks, ROLANDO, P.A.-C. [address] [place], [place] [address] (Wo rk) Social History Tobacco Use Types [...] 03/29/2020 relatives? How often do you attend islam or mormon Never 07/04/2019 services? 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 [address] [phone] (Wo rk) Scheduled Procedures Name Priority Associated Diagnoses Date/Time LIFT THIGH Excessive And Redundant Skin And Subcutaneous Tissue documented as of this encounter Visit Diagnoses Not on filedocumented in this encounter Additional Health Concerns Assessment Noted Time PHQ-9 Depression Total Score: 9 12/27/2016 10:29 AM CS T documented as of this encounter
--- OUTSIDE RECORDS SUMMARY | 2022-07-24 15:15 | XMS_ITS | Encounter Summary ---
:1985 Author Organization [facility] Address [address] [place] [address] Care Team Providers Name Role Phone Unavailable Primary Care Provider Unavailable Encounter Details Date Type Department Care Team Description 11/17/2016 Hospital Encounter HX [facility] Kit Mims M .D. Social History Tobacco Use Types Packs/Day Years [...] 03/29/2020 relatives? How often do you attend worship or voodoo Never 07/04/2019 services? 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 - 11/17/2016 1:59 PM CST [id number] CHIEF COMPLAINT/REASON FOR VISIT OB. HISTORY OF PRESENT ILLNESS This patient is a 41-year-old G5, P3-0-1-3 female with LMP of 03/07/2016 and EDC of 12/12/2016 at 36and 3/7 weeks. Patient presents for OB visit. The patient reports good movement. She denies leaking of fluid or vaginal bleeding. She denies current contractions. She does have irregular contractions and has been seen on Labor and Delivery earlier this week for contractions. She was discharged home with irregular contractions and no cervical change. The patient denies headaches or vision changes. No shortness of breath. No difficulty breathing. No right upper quadrant pain. The patient has gestational diabetes. She reports trying to follow ADA diet. She brought in her blood sugars for review. Her fasting blood sugars last week ranged between 78 and 92. Her postprandials for breakfast ranged between 81 and 121. Her postprandials for lunch ranged between 75 and 128. Her postprandials for dinner ranged between 92 and 124. The patient reports she is very anxious to have her section. She does not think that she can wait until 39 weeks. She would like to schedule her section earlier. ALLERGIES No known drug allergies. MEDICATIONS vitamins. PAST MEDICAL/SURGICAL HISTORY PAST MEDICAL HISTORY: 1. Gestational diabetes. 2. History of genital herpes. 3. History of depression. 4. Migraine headaches. 5. History of endometriosis. 6. History of infertility. 7. Morbid obesity with BMI of 46. 8. History of preeclampsia. PAST SURGICAL HISTORY: 1. section 2004. 2. section 2010. 3. section 2012. 4. Laparoscopic cholecystectomy. 5. Tonsils and adenoids. 6. Laparotomy. 7. Ovarian cystectomy. 8. Jaw surgery. PAST OBSTETRICAL HISTORY: 1. section 07/02/2005. 2. section 02/19/2011. 3. section 05/09/2013. VITAL SIGNS Weight 126.2 kg, height 164 cm. Blood pressure 132/80, BMI 46.9. PHYSICAL EXAMINATION GENERAL: Well-developed, well-nourished, morbidly obese female, in no apparent distress. Alert and oriented x3. Normal affect. LUNGS: Clear to auscultation bilaterally with good inspiratory effort. HEART: Regular rate and rhythm without murmur. ABDOMEN: Morbidly obese, gravid, soft, nontender. Positive bowel sounds. Fundal height 41 cm. Positive Doptones are auscultated, 142 beats per minute. Vertex presentation by Tarik's. Exam is limited due to body habitus. Well-healed Pfannenstiel skin incision. EXTREMITIES: No clubbing, cyanosis, or edema. Nontender bilaterally. GENITALIA: Cervix is 1 cm dilated, 4 cm long and -2 station. Cephalic presentation confirmed. No change from prior examination. DIAGNOSTICS Lab: GBS culture recommended. Patient declines. IMPRESSION/REPORT/PLAN 1. Intrauterine at 36 and 3/7 weeks. Positive cardiac activity. 2. Morbid obesity with BMI of 46.9. 3. History of prior section x3. 4. Gestational diabetes, diet controlled. 5. History of major depression. 6. History of type 2 genital herpes currently asymptomatic. 7. Size greater than dates. 8. History of preeclampsia in prior . PLAN: 1. I recommend we check GBS culture. The patient declines checking GBS culture today. She states sheplans to have her infant by section and not vaginally. She reports that she has discussed this with Dr. Booth at a prior visit. I discussed the importance of checking group B strep culture as there is a possibility that she may be rupture her membranes prior to being delivered. 2. I discussed with the patient gestational diabetes. Her blood sugar shows stable control. I would like the patient to continue to follow ADA diet. I would like the patient to continue checking her blood sugars and bring these in for review. 3. The patient is scheduled for repeat section at 39 weeks. 4. I understand the patient is very anxious and would like to have her section earlier. 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 I discussed with patient theneed to admit let stay inside and continue to grow unless there is maternal or indication to deliver before 39 weeks. 5. I discussed the patient's history of herpes. I recommend that we start antiviral prophylaxis. I reviewed the risks, benefits, alternatives and indication of this with the patient. Patient verbalizesunderstanding and declines to start antiviral prophylaxis. She declines this and states that she hasalready discussed this with her primary provider, Dr. Booth. 6. The patient's fundal height is greater than her dates. She had an ultrasound performed on 10/27/2016 that shows 75th percentile for growth. Her up fundal height has been stable. I recommend that we repeat a growth ultrasound in the next couple of weeks. The patient will get this scheduled up front with her primary provider, Dr. Booth. 7. I discussed the patient's morbid obesity. I discussed the increased problems associated with obesity including dystocia with delivery, difficult section, hemorrhage. The patient verbalizes understanding. 8. The patient has a history of preeclampsia. She has no signs or symptoms of severe disease today. Her blood pressure is on the upper limit of normal but is stable with prior values during this . 9. Preeclampsia precautions are reviewed with patient. 10. Routine OB precautions, recommendations, instructions are reviewed with patient. 11. Labor precautions are reviewed with the patient. 12. I would like the patient to follow up with Dr. Booth next week as scheduled or be seen sooner as needed. 13. I spent 30 minutes [id number] time with the patient with 22 minutes spent in counseling and coordinating care. Kit Hathaway M.D./pepe Electronically Signed By: KIT HATHAWAY MD On: 11/20/2016 08:12 AM Source: [facility] MHSDOLBEYNONRADSYS Document Id: [id number] [employer] WORKER documented in this encounter Procedure Notes Alexandra العلي L.P.NRodrigo - 11/17/2016 2:41 PM CST Urine Dipstick Urine Dipstick Entered On: 11/17/2016 14:49 [employer] WORKER Performed On: 11/17/2016 14:41 [employer] WORKER by ALEXANDRA العلي LPN Urine Dipstick UA Color POC : Yellow UA Appear POC : Clear UA Protein POC : Trace UA Glucose POC : 100 mg/dl ALEXANDRA العلي LPN - 11/17/2016 14:41 [employer] WORKER Source: [facility] POWERCHART Document Id: [id number] [employer] WORKER!6 [employer] WORKER documented in this encounter Miscellaneous Notes Miscellaneous - Kit Hathaway M.D. - 11/17/2016 3:37 PM CST Ambulatory Patient Summary [address] [id number] Visit Information Name: NANCY PHILLIPS [facility] Number: [id number] Current Date: 11/17/2016 15:37:48 Physicians Attending Provider: KIT HATHAWAY MD Primary Care Provider: MAILE MONTIEL MD [...] the Following Medications: Medication list as of 11-17-16 15:37 Attention: If you have any medications at home that are not on this list, DO NOT take them until youcontact your provider for clarification. Give a copy of your medication list to your primary care provider. Update your medication list any time medications or doses are changed and carry your medication list at all times in case of emergency. Electronically Signed By: KIT HATHAWAY MD Signed On:17-NOV-2016 15:37:42 Your Allergies & Intolerances Substance Reaction Symptoms [...] Your Upcoming Appointments Date Time Location Provider 11/20/2016 10:15 [employer] Cassie Booth MD 11/24/2016 14:30 [employer] WORK[employer] Cassie Booth MD 12/27/2016 09:45 [facility] Nicki Montiel MD Attention: Contact your local [...] if you dont have one. Go to [email or web address] and click on Create Your Account. Then, follow the directions to complete the online form. Youll be asked for your [facility] number which you can find at the top of this document. Your Goals/Additional instructions: Source: [facility] POWERCHART Document Id: [id number] [employer] WORKER Miscellaneous - Kit Hathaway M.D. - 11/17/2016 3:37 PM CST Ambulatory Discharge Medication List [facility] [address] [place] [id number] Visit Information Name: NANCY PHILLIPS [facility] Number: [id number] Current Date: 11/17/2016 15:37:47 Attending Provider: KIT HATHAWAY MD Primary Care Provider: MAILE MONTIEL MD [...] the Following Medications: Medication list as of 11-17-16 15:37 Attention: If you have any medications at home that are not on this list, DO NOT take them until youcontact your provider for clarification. Give a copy of your medication list to your primary care provider. Update your medication list any time medications or doses are changed and carry your medication list at all times in case of emergency. Electronically Signed By: KIT HATHAWAY MD Signed On:17-NOV-2016 15:37:42 Additional Information: Source: [facility] Document Id: [id number] [employer] WORKER Miscellaneous - Alexandra العلي LRodrigoP.N. - 11/17/2016 2:35 PM CST Film Projector Operator Documentation Film Projector Operator Documentation Entered On: 11/17/2016 14:36 [employer] WORKER Performed On: 11/17/2016 14:35 [employer] WORKER by ALEXANDRA العلي LPN Film Projector Operator Documentation Exam/Procedure Performed : Cervical check CD Film Projector Operator Present : Yes CD Film Projector Operator Name : Susana العلي LPN Present in Room During Exam/Procedure : Other: Cousin ALEXANDRA العلي LPN - 11/17/2016 14:35 [employer] WORKER Source: [facility] Document Id: [id number] PREC[employer]ICAL GOODS WORKER!6 [employer] WORKER Miscellaneous - Alexandra العلي L.P.N. - 11/17/2016 2:08 PM CST Adult [facility] [employer] Intake/History Adult [facility] [employer] Intake/History Entered On: 11/17/2016 14:10 [employer] WORKER Performed On: 11/17/2016 14:08 [employer] WORKER by ALEXANDRA العلي LPN Intake Chief Complaint : OB visit 36 + 3 weeks LMP Date : 03/07/2016 Systolic Blood Pressure : 132 mmHg Diastolic Blood Pressure : 80 mmHg NIBP Mean : 97 mmHg BP Location : Right upper extremity Blood Pressure Cuff Size : Large Height : 164 cm(Converted to: 5 ft 5 inch(es), 65 inch(es)) Actual Weight : 126.2 kg(Converted to: 278 lb 4 oz) Weight Source : Standing scale Dosing Weight Clinic : 126.2 kg Clinic BSA : 2.4 Body Mass Index : 46.92 kg/m2 ELIANE ALEXANDRAJENNYFER Zuniga LPN - 11/17/2016 14:08 [employer] WORKER General Info Languages : [place] Is Patient Female and 13-50 no hysterectomy : Yes Status : Confirmed positive Are you ? : No ALEXANDRA العلي LPN - 11/17/2016 14:08 [employer] WORKER Subjective Pain Symptoms : No ALEXANDRA العلي LPN - 11/17/2016 14:08 [employer] WORKER Dependent Habits Exposure to Tobacco Smoke : Other: never Smoking Status : Never smoker Tobacco 2A : No Tobacco Use/Currently Using : No Tobacco Use/Last 30 Days : No Tobacco Use/Last 12 months : No ALEXANDRA العلي LPN - 11/17/2016 14:08 [employer] WORKER Caffeine Use Grid Caffeine Use : Current Type : Soft drinks Frequency : Daily Amount : regular 1-2 cans daily ALEXANDRA العلي LPN - 11/17/2016 14:08 [employer] WORKER [facility] Document Id: [id number] PRECISION [employer]ICAL GOODS WORKER!35 [employer] WORKER documented in this encounter Plan of Treatment Upcoming Encounters Date Type Specialty Care Team Description 08/17/2022 Procedure visit Neurology Marina Winter M.D., M.P.H. [address] [phone] (Wo rk) Scheduled Procedures Name Priority Associated Diagnoses Date/Time LIFT THIGH Excessive And Redundant Skin And Subcutaneous Tissue documented as of this encounter Procedures Procedure Name Priority Date/Time Associated Comments Diagnosis DIPSTICK, POCT, U Routine 11/17/2016 2:41 PM Resu lts for this (NURSING) INTERFACED [employer] WORKER procedu re are in the results section. documented in this encounter Results Dipstick, POCT, Urine (nursing) (11/17/2016 2:41 PM [employer] WORKER) [facility] gist Method Time Signature Color Yellow POWERCHART Appearance Clear POWERCHART Protein, POCT, Trace POWERCHART U Glucose, POCT, 100 mg/dl POWERCHART U Specimen (Source) Anatomical Collection Method Collection Time Re ceived Time Location / / Volume Laterality 11/17/2016 2:41 PM [employer] WORKER Kit Hathaway M.D. LAB POCT ORDERABLES - DEVICE Performing Organization Address City/State/ZIP Code Phon e Number POWERCHART documented in this encounter Visit Diagnoses Not on filedocumented in this encounter Additional Health Concerns Assessment Noted Time PHQ-9 Depression Total Score: 13 06/14/2015 3:56 PM CD T documented as of this encounter
--- OUTSIDE RECORDS SUMMARY | 2022-07-24 15:15 | XMS_ITS | Encounter Summary ---
:1985 Author Organization [facility] Address [address] [place] [address] Care Team Providers Name Role Phone Unavailable Primary Care Provider Unavailable Encounter Details Date Type Department Care Team Description 11/01/2016 Hospital Encounter HX NO MAPPING Sandeep Hathaway M.D. Social History Tobacco Use Types Packs/Day Years Used Date Smoking Tobacco: Never Assessed Alcohol Habits Answer Date Recorded How often [...] How often do you attend zoroastrianism or confucianism Never 07/04/2019 services? 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 [address] [phone] (Wo rk) Scheduled Procedures Name Priority Associated Diagnoses Date/Time LIFT THIGH Excessive And Redundant Skin And Subcutaneous Tissue documented as of this encounter Visit Diagnoses Not on filedocumented in this encounter Additional Health Concerns Assessment Noted Time PHQ-9 Depression Total Score: 13 06/14/2015 3:56 PM CD T documented as of this encounter
--- OUTSIDE RECORDS SUMMARY | 2022-07-24 15:15 | XMS_ITS | Encounter Summary ---
:1985 Author Organization [facility] Address [address] [place] [address] Care Team Providers Name Role Phone Unavailable Primary Care Provider Unavailable Encounter Details Date Type Department Care Team Description 07/27/2016 Hospital Encounter HX [facility] Promise Rouse M.D. [address] [place], [place] [phone] (Wo rk) Social History [...] How often do you attend tenriism or yazdanism Never 07/04/2019 services? 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 - 07/27/2016 5:04 PM CDT CHIEF COMPLAINT: care, third trimester. HISTORY OF PRESENT ILLNESS: This patient presents for a visit in the third trimester. She is tolerating PO well, and is taking vitamins. movement is reported as good. CURRENT MEDICATIONS and ALLERGIES have been reviewed and are current in the EMR as of today's date. Refer to the patient's accompanying ACOG form for established NIMA, documentation of prior obstetric history, laboratory information, and summary of medical record. Physical exam: Vital signs are reviewed, stable, and in the normal range as documented in the EMR as of today's date. General: well nourished, well developed female in no acute distress. Weight gain is documented on the ACOG form. Fundal height is appropriate for gestational age. Heart Tones are in the normal range by doppler interrogation. OB labs reviewed today. Glucose test results and hemoglobin are documented in the EMR. IMPRESSION/REPORT/PLAN: Third trimester . Recommendations: Follow up visit is scheduled in two weeks. kick counts is an important home monitor of well being. Monitoring of movement is encouraged, with instructions to seek care when the perception is that movement is decreased. While there is no consensus that any quantitative alarm limit distinguishes a healthy fetus from a fetus at increased risk, common advice is to do kick counts. Perception of at least 10 movements in an hour is one quantitative approach, although transient decreases in activity occur due to sleep status. Regular, frequent, strong and painful contractions may be a sign of labor. Either this or vaginal spotting should be evaluated immediately to allow early intervention and avoidance of delivery. Shar Del Angel CC: Labor and Delivery Electronically Signed By: SHAR TEJEDA MD On: 07/27/2016 05:04 PM Source: [facility] POWERCHART Document Id: [id number] Shar Tejeda M.D. - 07/27/2016 3:51 PM CDT CHIEF COMPLAINT: care, survey HISTORY OF PRESENT ILLNESS: This patient presents for a visit in the second trimester. She has no unusual complaints today and is not experiencing severe hyperemesis nor vaginal bleeding. She is tolerating PO well, and is taking vitamins. CURRENT MEDICATIONS and ALLERGIES have been reviewed and are current in the EMR as of today's date. Refer to the patient's accompanying ACOG form for established NIMA, documentation of prior obstetric history, laboratory information, and summary of medical record. Physical exam: Vital signs are reviewed, stable, and in the normal range as documented in the EMR as of today's date. General: well nourished, well developed female in no acute distress. Weight gain is documented on the ACOG form. growth is appropriate and normal based on measurements of the biparietal diameter, femure length, abdominal circumference, and head circumference. Heart Tones are in the normal range during the ultrasound examination. OB labs reviewed today. A detailed anatomic survey was performed and the results are normal. Please refer to separately dictated report. Gender is female IMPRESSION/REPORT/PLAN: Second trimester . Recommendations: Follow up visit is scheduled in four weeks. Routine early ultrasound is beneficial in leading to early detection of clinically unsuspected malformations (including aneuploidies). The safety of obstetrical ultrasound is well established. While overall reassuring, the detailed survey today is a screening exam and like all tests is limited in it's ability to detect all possible problems. Shar Del Angel CC: Labor and Delivery Electronically Signed By: SHAR TEJEDA MD On: 07/27/2016 03:52 PM Source: [facility] POWERCHART Document Id: [id number] documented in this encounter Nursing Notes Laverne Conti, L.P.N. - 07/27/2016 1:51 PM CDT Zika screening questions 1.) Have you or your partner traveled outside of [place] up to 6 months prior to this ? _Yes _xNo 2.) If so, where specifically have you or your partner traveled (Country, State)?_ 3.) If you or your partner have traveled to [place] since April_yes _no Where in [place] did you travel? _ Electronically Signed By: LAVERNE CONTI LPN On: 12/01/2016 04:00 PM Source: [facility] POWERCHART Document Id: [id number] ACTER ACTOR documented in this encounter Miscellaneous Notes Miscellaneous - Shar Tejeda M.D. - 07/27/2016 5:04 PM CDT Ambulatory Patient Summary [facility] [address] [place], [place] [id number] Visit Information Name: ALAN, NANCY ELIZABETH [facility] Number: [id number] Current Date: 07/27/2016 17:04:14 Physicians Attending Provider: SHAR TEJEDA MD Primary Care Provider: MAILE ZARATE MD ALANJOSEPHINENANCYANILA JOHNSON has been given the following list [...] the Following Medications: Medication list as of 07-27-16 17:04 Attention: If you have any medications at [...] Electronically Signed By: SHAR TEJEDA MD Signed On:27-JUL-2016 17:04:12 Your Allergies & Intolerances Substance Reaction Symptoms Category Comments No Known Allergies Drug Your Problem List Problem Status Onset Comments Endometriosis Pelvic Peritoneum Active 07/25/2004 Migraine headache Active 08/23/2010 Tattoo Active Genital herpes Active 02/19/2011 02/20/11 recurrent genital HSV Major Depressive Disorder, Recurrent Episode, Unspecified Degree Active 02/27/2011 02/27/11 depression, recurrent. Relationship problems Active 09/10/2012 Gestational diabetes Active 04/23/2013 Previous Section, Antepartum Condition or Complication Active 04/23/2013 Active 03/07/2016 Your Upcoming Appointments Date Time Location Provider 08/24/2016 13:30 [facility] OCEANOGRAPHIC METEOROLOGIST Shar Tejeda MD 08/25/2016 13:15 [facility] OCEANOGRAPHIC METEOROLOGIST Ileana RED, Shar Regalado 09/21/2016 08:40 [facility] Lab [facility] Lab 09/21/2016 09:15 [facility] OCEANOGRAPHIC METEOROLOGIST Ileana RED, Shar Reaglado 10/05/2016 13:15 [facility] OCEANOGRAPHIC METEOROLOGIST Ileana RED, Shar Regalado 10/19/2016 13:15 [facility] OCEANOGRAPHIC METEOROLOGIST Ileana RED, Shar Regalado 11/02/2016 13:15 [facility] OCEANOGRAPHIC METEOROLOGIST Ileana RED, Shar Regalado 11/16/2016 13:15 [facility] OCEANOGRAPHIC METEOROLOGIST Ileana RED, Shar Regalado 11/23/2016 13:15 [facility] OCEANOGRAPHIC METEOROLOGIST Shar Tejeda MD 12/15/2016 11:15 [facility] OCEANOGRAPHIC METEOROLOGIST Ayanna Xie NP 01/12/2017 13:15 [facility] OCEANOGRAPHIC METEOROLOGIST Shar Tejeda MD Attention: Contact your local [...] if you dont have one. Go to [email or web address] and click on Create Your Account. Then, follow the directions to complete the online form. Youll be asked for your [facility] number which you can find at the top of this document. Your Goals/Additional instructions: Source: [facility] POWERCHART Document Id: [id number] Miscellaneous - Shar Tejeda M.D. - 07/27/2016 5:04 PM CDT Ambulatory Discharge Medication List [facility] [address] [place], [place] [id number] Visit Information Name: NANCY PHILLIPS [facility] Number: [id number] Visit Date: 07/27/2016 17:04:14 Attending Provider: SHAR TEJEDA MD Primary Care Provider: MAILE ZARATE MD [...] the Following Medications: Medication list as of 07-27-16 17:04 Attention: If you have any medications at [...] Electronically Signed By: SHAR TEJEDA MD Signed On:27-JUL-2016 17:04:12 Additional Information: Source: [facility] POWERCHART Document Id: [id number] Bunny - Laverne Conti, L.P.N. 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 Intake/History Entered On: 07/27/2016 13:50 CDT Performed On: 07/27/2016 13:46 CDT by LAVERNE CONTI COMIC ILLUSTRATOR Intake Chief Complaint : 20 2/7 wk ob check Systolic Blood Pressure : 100 mmHg Diastolic Blood Pressure : 62 mmHg NIBP Mean : 75 mmHg BP Location : Left upper extremity Blood Pressure Cuff Size : Large Height : 164 cm(Converted to: 5 ft 5 inch(es), 65 inch(es)) Actual Weight : 134.2 kg(Converted to: 295 lb 14 oz) Dosing Weight Clinic : 134.2 kg Clinic BSA : 2.47 Body Mass Index : 49.9 kg/m2 LAVERNE CONTI [facility] - 07/27/2016 13:46 CDT General Info Languages : Chinese Is Patient Female and 13-50 no hysterectomy : No LAVERNE CONTI [facility] - 07/27/2016 13:46 CDT Subjective Pain Symptoms : LAVERNE Holden [facility] - 07/27/2016 13:46 CDT Dependent Habits Exposure to Tobacco Smoke : Other: never Smoking Status : Never smoker Tobacco 2A : No Tobacco Use/Currently Using : No Tobacco Use/Last 30 Days : No Tobacco Use/Last 12 months : No LAVERNE CONTI [facility] - 07/27/2016 13:46 CDT Caffeine Use Grid Caffeine Use : Current Type : Soft drinks Frequency : Daily Amount : regular 1-2 cans daily LAVERNE CONTI [facility] - 07/27/2016 13:46 CDT Source: [employer] Document Id: [id number]!31 documented in this encounter Plan of Treatment Upcoming Encounters Date Type Specialty Care Team Description 08/17/2022 Procedure visit Neurology Marina Winter M.D., M.P.H. [address] [phone] (Wo rk) Scheduled Procedures Name Priority Associated Diagnoses Date/Time LIFT THIGH Excessive And Redundant Skin And Subcutaneous Tissue documented as of this encounter Visit Diagnoses Not on filedocumented in this encounter Additional Health Concerns Assessment Noted Time PHQ-9 Depression Total Score: 13 06/14/2015 3:56 PM CD T documented as of this encounter
--- OUTSIDE RECORDS SUMMARY | 2022-07-24 15:15 | XMS_ITS | Encounter Summary ---
:1985 Author Organization [facility] Address [address] [place] [address] Care Team Providers Name Role Phone Unavailable Primary Care Provider Unavailable Encounter Details Date Type Department Care Team Description 07/27/2016 Hospital Encounter HX [facility] Promise Rouse M.D. [address] [place], [place] [phone] (Wo rk) Social History [...] How often do you attend episcopal or druze Never 07/04/2019 services? 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 [address] [phone] (Wo rk) Scheduled Procedures Name Priority Associated Diagnoses Date/Time LIFT THIGH Excessive And Redundant Skin And Subcutaneous Tissue documented as of this encounter Procedures Procedure Name Priority Date/Time Associated Diagnosis Comme nts US OB GREATER THAN Routine 07/27/2016 12:43 PM Re sults for this 14 WEEKS CDT procedure are i n the results section. documented in this encounter Results US OB Greater than 14 weeks (07/27/2016 12:43 PM CDT) Anatomical Region Laterality Modality Ultrasound Specimen (Source) Anatomical Collection Method Collection Time Re ceived Time Location / / Volume Laterality 07/27/2016 12:43 PM CDT Addenda Addendum by Provider, Ella Moreno 07/27/2016 12:43 PM CDT RAD^^^OW US OB Greater than 14 weeks 07/27/2016 12:43:45 Impressions 07/27/2016 3:56 PM CDT 1. Viable with NIMA of December 13, 2016 , consistent with prior dates. 2. anatomic survey appears normal, gender is female. In general, it is reasonable to use the sonographically derived NIMA if it differs from that calculated using the last menstrual period (LMP) by more than seven days in the fir st trimester and by more than 10 days in the second trimester. In the third trimester, a three-week discrepancy between LMP dating and ultra sound dating is allowed before changing NIMA. No anomalies were detected by maureen paz's survey. Results shared with the patient were done with a n understanding of the limitations of ultrasound for detection of aneuploidy, as well as congenital heart defects. 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 [phone] Narrative 07/27/2016 3:56 PM CDT EXAM: US OB Greater than 14 weeks INDICATION: Survey REFERRING PHYSICIAN: Ileana MANAGER UNIVERSITY: Saige Clifford RDMS. : 5 ?? PARA: 3 LMP: March 07, 2016 ? NIMA by LMP: 2016 ?EGA by LMP: 20 weeks and 2 days NUMBER: One ??CHORIONICITY: N/A PRESENTATION: Variable UTERUS: Visually normal. CERVIX: 3.5 cm PLACENTA: Anterior with no evidence of p lacenta previa nor abruption. ADNEXA: Visually normal, no adnexal mass es detected. AMNIOTIC FLUID INDEX: Appropriate and no rmal for gestational age at 17.3 cm. BIOMETRY Based on the above, the average ultrasou nd age is 20 weeks and 1 days. See 'Impression' below for ultrasound ca lculation of Estimated Date of Delivery (NIMA). The following anatomic features we re well visualized and appear normal today: SPINE (longitudinal and transverse): Nor mal CEREBELLUM: Normal CISTERNA MAGNA: Normal NUCHAL FOLD: Normal LATERAL VENTRICLES: Normal CHOROID PLEXUS: Normal FOUR CHAMBER HEART: Normal HEART RATE: 141 beats per minute CARDIAC AXIS: Normal RIGHT AND LEFT OUTFLOW TRACTS: Normal ANTERIOR ABDOMINAL WALL: Normal DIAPHRAGM: Normal CORD INSERTION: Normal THREE VESSEL CORD: Normal STOMACH: Normal BLADDER: Normal KIDNEYS: Normal EXTREMITIES (arms and legs): Normal HANDS AND FEET: Normal ORBITS: Normal PROFILE: Normal NOSE AND LIPS: Normal CORD INSERTION AT PLACENTA: Normal Procedure Note Nahun Tejeda M.D. / ProviderSallie M.D. - 03/10/2017 EXAM: US OB Greater than 14 weeks INDICATION: Survey REFERRING PHYSICIAN: Ileana MANAGER UNIVERSITY: Saige Clifford RDMS. : 5 PARA: 3 LMP: March 07, 2016 NIMA by LMP: December 12, 2016 EGA by LMP: 20 weeks and 2 days NUMBER: One CHORIONICITY: N/A PRESENTATION: Variable UTERUS: Visually normal. CERVIX: 3.5 cm PLACENTA: Anterior with no evidence of p lacenta previa nor abruption. ADNEXA: Visually normal, no adnexal mass es detected. AMNIOTIC FLUID INDEX: Appropriate and no rmal for gestational age at 17.3 cm. BIOMETRY Based on the above, the average ultrasou nd age is 20 weeks and 1 days. See 'Impression' below for ultrasound ca lculation of Estimated Date of Delivery (NIMA). The following anatomic features we re well visualized and appear normal today: SPINE (longitudinal and transverse): Nor mal CEREBELLUM: Normal CISTERNA MAGNA: Normal NUCHAL FOLD: Normal LATERAL VENTRICLES: Normal CHOROID PLEXUS: Normal FOUR CHAMBER HEART: Normal HEART RATE: 141 beats per minute CARDIAC AXIS: Normal RIGHT AND LEFT OUTFLOW TRACTS: Normal ANTERIOR ABDOMINAL WALL: Normal DIAPHRAGM: Normal CORD INSERTION: Normal THREE VESSEL CORD: Normal STOMACH: Normal BLADDER: Normal KIDNEYS: Normal EXTREMITIES (arms and legs): Normal HANDS AND FEET: Normal ORBITS: Normal PROFILE: Normal NOSE AND LIPS: Normal CORD INSERTION AT PLACENTA: Normal IMPRESSION: 1. Viable with NIMA of December 13, 2016 , consistent with prior dates. 2. anatomic survey appears normal, gender is female. In general, it is reasonable to use the sonographically derived NIMA if it differs from that calculated using the last menstrual period (LMP) by more than seven days in the fir st trimester and by more than 10 days in the second trimester. In the third trimester, a three-week discrepancy between LMP dating and ultra sound dating is allowed before changing NIMA. No anomalies were detected by maureen paz's survey. Results shared with the patient were done with a n understanding of the limitations of ultrasound for detection of aneuploidy, as well as congenital heart defects. 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 [phone] Saige Nick R.V.T., RJuanS. IMG OB US GAMA ES documented in this encounter Visit Diagnoses Not on filedocumented in this encounter Additional Health Concerns Assessment Noted Time PHQ-9 Depression Total Score: 13 06/14/2015 3:56 PM CD T documented as of this encounter
--- OUTSIDE RECORDS SUMMARY | 2022-07-24 15:15 | XMS_ITS | Encounter Summary ---
:1985 Author Organization [facility] Address [address] [place] [address] Care Team Providers Name Role Phone Unavailable Primary Care Provider Unavailable Encounter Details Date Type Department Care Team Description 10/13/2016 Hospital Encounter HX NO MAPPING Eva Booth M.D. [address] [place], [place] [phone] (Wo rk) Social History [...] How often do you attend jainism or oriental orthodox Never 07/04/2019 services? 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 However, the narrative phrase printed from the coding software may appear abbreviated, or result in slightly different terminology. Coded By: VIMAL ROME Date Saved: 10/24/2016 12:57 pm [facility] Document Id: [id number] documented in this encounter Plan of Treatment Upcoming Encounters Date Type Specialty Care Team Description 08/17/2022 Procedure visit Neurology Marina Winter M.D., M.P.H. [address] [phone] (Wo rk) Scheduled Procedures Name Priority Associated Diagnoses Date/Time LIFT THIGH Excessive And Redundant Skin And Subcutaneous Tissue documented as of this encounter Visit Diagnoses Not on filedocumented in this encounter Additional Health Concerns Assessment Noted Time PHQ-9 Depression Total Score: 13 06/14/2015 3:56 PM CD T documented as of this encounter
--- OUTSIDE RECORDS SUMMARY | 2022-07-24 15:15 | XMS_ITS | Encounter Summary ---
:1985 Author Organization [facility] Address [address] [place] [address] Care Team Providers Name Role Phone Unavailable Primary Care Provider Unavailable Encounter Details Date Type Department Care Team Description 06/22/2016 Hospital Encounter [facility]X [facility] Promise Rouse M.D. [address] [place], [place] [phone] (Wo rk) Social History [...] How often do you attend islam or lutheran Never 07/04/2019 services? 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 - 06/22/2016 4:49 PM CDT CHIEF COMPLAINT: care, second trimester. HISTORY OF PRESENT ILLNESS: This patient [...] by doppler interrogation. OB labs reviewed today. IMPRESSION/REPORT/PLAN: First trimester . Recommendations: Follow up visit is scheduled in four weeks. For women who choose to undergo ultrasound screening for structural anomalies, this is optimally performed in the second trimester (around 20 weeks EGA is standard at our facility). Low weight gain is common in the first trimester, but can increase in a step- ventura fashion after that. For sanchez pregnancies, the typical target is a weight gain of 25 to 35 pounds for the entire . However, the recommendations for weight gain has not been evaluated extensively in subpopulat ions of women and further study is needed. women should reduce consumption of some fish to minimize exposure to mercury and other water borne contaminants. Shar Del Angel CC: Labor and Delivery Electronically Signed By: SHAR TEJEDA MD On: 06/22/2016 04:50 PM Source: [facility] POWERCHART Document Id: [id number] documented in this encounter Miscellaneous Notes Miscellaneous - Shar Tejeda M.D. - 06/22/2016 4:49 PM CDT Ambulatory Discharge Medication List [facility] [address] [place] [id number] Visit Information Name: NANCY PHILLIPS [facility] Number: [id number] Visit Date: 06/22/2016 16:49:16 Attending Provider: SHAR TEJEDA MD Primary Care [...] the Following Medications: Medication list as of 06-22-16 16:49 Attention: If you have any medications at [...] Electronically Signed By: SHAR TEJEDA MD Signed On:22-JUN-2016 16:49:13 Additional Information: Source: [facility] POWERCHART Document Id: [id number] Miscellaneous - Shar Tejeda M.D. - 06/22/2016 4:49 PM CDT Ambulatory Patient Summary [facility] [address] [place], [place] [phone] Visit Information Name: NANCY PHILLIPS [facility] Number: [id number] Current Date: 06/22/2016 16:49:16 Physicians Attending Provider: SHAR TEJEDA MD Primary Care Provider: MAILE ZARATE MD NANCY PHILLIPS ELIZABETH has been given the following list [...] the Following Medications: Medication list as of 06-22-16 16:49 Attention: If you have any medications at [...] Electronically Signed By: SHAR TEJEDA MD Signed On:22-JUN-2016 16:49:13 Your Allergies & Intolerances Substance Reaction Symptoms [...] Your Upcoming Appointments Date Time Location Provider 07/27/2016 13:00 [facility] ANGLE SHEARER [facility] Sound Cutter Ultrasound Room 3 07/27/2016 14:00 [facility] ANGLE SHEARER Shar Tejeda MD 08/24/2016 13:30 [facility] ANGLE SHEARER Shar Tejeda MD Attention: Contact your local [...] if you dont have one. Go to [email or web address] and click on Create Your Account. Then, follow the directions to complete the online form. Youll be asked for your [facility] number which you can find at the top of this document. Your Goals/Additional instructions: Source: [facility] POWERCHART Document Id: [id number] Miscellaneous - Chinyere Espinal L.P.N. - 06/22/2016 2:47 PM CDT Adult Nursing Secretary Intake/History Adult Nursing Secretary Intake/History Entered On: 06/22/2016 14:50 CDT Performed On: 06/22/2016 14:47 CDT by CHINYERE ESPINAL LPN Intake Chief Complaint : 15 weeks and 2 days OB check. Ambulatory Intake Additional Information : Pt still having cramping issues in pelvic region. Systolic Blood Pressure : 118 mmHg Diastolic Blood Pressure : 76 mmHg NIBP Mean : 90 mmHg BP Location : Left upper extremity Blood Pressure Cuff Size : Large Height : 164 cm(Converted to: 5 ft 5 inch(es), 65 inch(es)) Actual Weight : 135.8 kg(Converted to: 299 lb 6 oz) Weight Source : Standing scale Dosing Weight Clinic : 135.8 kg Clinic BSA : 2.49 Body Mass Index : 50.49 kg/m2 CHINYERE ESPINAL LPN - 06/22/2016 14:47 CDT General Info Information Given By : Patient Languages : Slovenian Is Patient Female and 13-50 no hysterectomy : No CHINYERE ESPINAL LPN - 06/22/2016 14:47 CDT Subjective Pain Symptoms : Yes CHINYERE ESPINAL LPN - 06/22/2016 14:47 CDT Pain Scale Pain Scale Verbal 0-10 : Open CHINYERE ESPINAL LPN - 06/22/2016 14:47 CDT Pain Pain Assessment Grid Pain 1 Location : Pelvic Laterality : Bilateral Intensity : 4 CHINYERE ESPINAL LPN - 06/22/2016 14:47 CDT Dependent Habits Exposure to Tobacco Smoke : Other: never Smoking Status : Never smoker Tobacco 2A : No Tobacco Use/Currently Using : No Tobacco Use/Last 30 Days : No Tobacco Use/Last 12 months : No CHINYERE ESPINAL PRADEEP - 06/22/2016 14:47 CDT Caffeine Use Grid Caffeine Use : Current Type : Soft drinks Frequency : Daily Amount : regular 1-2 cans daily CHINYERE ESPINAL PRADEEP - 06/22/2016 14:47 CDT [facility] Document Id: [id number] CDT!42 documented in this encounter Plan of Treatment Upcoming Encounters Date Type Specialty Care Team Description 08/17/2022 Procedure visit Neurology Marina Winter M.D., M.P.H. [address] [phone] (Wo rk) Scheduled Procedures Name Priority Associated Diagnoses Date/Time LIFT THIGH Excessive And Redundant Skin And Subcutaneous Tissue documented as of this encounter Visit Diagnoses Not on filedocumented in this encounter Additional Health Concerns Assessment Noted Time PHQ-9 Depression Total Score: 13 06/14/2015 3:56 PM CD T documented as of this encounter
--- OUTSIDE RECORDS SUMMARY | 2022-07-24 15:15 | XMS_ITS | Encounter Summary ---
:1985 Author Organization [facility] Address [address] [place] [address] Care Team Providers Name Role Phone Unavailable Primary Care Provider Unavailable Encounter Details Date Type Department Care Team Description 10/16/2016 Hospital Encounter HX [facility] Kristi Melissa M.D. [address] [place], [place] [phone] (Wo rk) Social History [...] How often do you attend pentecostalism or bahai Never 07/04/2019 services? 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 - 10/16/2016 2:34 PM CST Results Notification Document Contains Addenda Addendum by TONYA DEL RIO LPN on October 17, 2016 09:09:35 PERFORMANCE REPORTER added to chart. From: KRISTI MELISSA MD To: RADHA HAMMOND RN; Sent: 10/16/2016 14:34:05 PERFORMANCE REPORTER ! Show up: 10/16/2016 14:34:05 PERFORMANCE REPORTER Subject: Results Notification Actions: Note to Nurse Reminder Comments: Please add 24 hour urine protein result to chart. Please add [id number] to chart to ask her about the amount. Results: Date Result Name Ind Value Ref Range 10/16/2016 11:04 Ur Volume 24 mL 10/16/2016 11:04 Ur Brenda Hrs 875 10/16/2016 11:04 U24 Protein 4 mg/24hr ( - <=150) 10/16/2016 11:04 U24 Creatinine (L) 42 mg/24hr (601 - 1,689) 10/16/2016 11:04 U Protein 15 mg/dL 10/16/2016 11:04 U Creatinine 174 mg/dL (29 - 226) Source: [facility] POWERCHART Document Id: [id number] Electronically signed by Conversion, [facility] Radio Reporter [id number] at 04/01/2017 7:17 AM CDT documented in this encounter Plan of Treatment Upcoming Encounters Date Type Specialty Care Team Description 08/17/2022 Procedure visit Neurology Marina Winter M.D., M.P.H. [address] [place] [phone] (Wo rk) Scheduled Procedures Name Priority Associated Diagnoses Date/Time LIFT THIGH Excessive And Redundant Skin And Subcutaneous Tissue documented as of this encounter Procedures Procedure Name Priority Date/Time Associated Diagnosis Comme nts URINE VOLUME Routine 10/16/2016 11:04 AM Results for this PERFORMANCE REPORTER procedure are i n the results section. CREATININE, U Routine 10/16/2016 11:04 AM Results for this PERFORMANCE REPORTER procedure are i n the results section. PROTEIN, TOTAL, 24 Routine 10/16/2016 11:04 AM Re sults for this HR, U PERFORMANCE REPORTER procedure are i n the results section. documented in this encounter Results Urine Volume (10/16/2016 11:04 AM PERFORMANCE REPORTER) athologist Signature Collection 875 POWERCHART Duration Urine Volume 24 ML POWERCHART Specimen Anatomical Collection Method Collection Time Receive d Time (Source) Location / / Volume Laterality Urine 10/16/2016 11:04 10/16/2016 AM PERFORMANCE REPORTER 11:04 AM PERFORMANCE REPORTER Authorizing Provider Result Lupis Melissa M.D. LAB URINE ORDERABLES Performing Organization Address City/State/ZIP Code Phon e Number POWERCHART (ABNORMAL) Creatinine, 24 Hour, Urine (10/16/2016 11:04 AM PERFORMANCE REPORTER) athologist Signature Creatinine, 174 29 - 226 POWERCHART Random, U MGDL Creatinine, 24 42 (L) 601 - 1689 POWERCHART HR, U MG24HR Comment: The expected urine creatinine excretion: Males: 13-29 mg/kg of body weight/24 yaneth rs Females: 9-26 mg/kg of body weight/24 ho urs Reference ranges for male and female pat ients <18 years and >83 years of age have not been established. Note: To convert to mg/kg of body weight /24 hours, divide the mg/24 hr result by body weight in kg. Specimen (Source) Anatomical Collection Method Collection Time Re ceived Time Location / / Volume Laterality Urine 10/16/2016 11:04 AM PERFORMANCE REPORTER Authorizing Provider Result Lupis Melissa M.D. LAB URINE ORDERABLES Performing Organization Address City/State/ZIP Code Phon e Number POWERCHART Protein, Total, 24 Hour, Urine (10/16/2016 11:04 AM PERFORMANCE REPORTER) athologist Signature Protein, U 15 MGDL POWERCHART Predicted 24 Hr 4 <=150 POWERCHART Protein MG24HR Specimen (Source) Anatomical Collection Method Collection Time Re ceived Time Location / / Volume Laterality Urine 10/16/2016 11:04 AM PERFORMANCE REPORTER Authorizing Provider Result Lupis Melissa M.D. LAB URINE ORDERABLES Performing Organization Address City/State/ZIP Code Phon e Number POWERCHART documented in this encounter Visit Diagnoses Not on filedocumented in this encounter Additional Health Concerns Assessment Noted Time PHQ-9 Depression Total Score: 13 06/14/2015 3:56 PM CD T documented as of this encounter
--- OUTSIDE RECORDS SUMMARY | 2022-07-24 15:15 | XMS_ITS | Encounter Summary ---
:1985 Author Organization [facility] Address [address] [place] [address] Care Team Providers Name Role Phone Unavailable Primary Care Provider Unavailable Encounter Details Date Type Department Care Team Description 11/10/2016 Hospital Encounter HX [facility] Ranjit Lee M.D. [address], [place] [phone] (Wo rk) Social History [...] How often do you attend tenriism or quaker Never 07/04/2019 services? 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 - 11/10/2016 10:55 AM CST [id number] CHIEF COMPLAINT/REASON FOR VISIT OB followup. HISTORY OF PRESENT ILLNESS Nancy is a 31-year-old 5, para 3-0-1-3 female at 35+3 weeks by last menstrual period consistent with 7+1 week ultrasound who presents for OB followup today. Nancy reports that she had onsetof nausea, vomiting and diarrhea with some abdominal pain this morning. Her cousin who lives with her has the same thing so it is likely a viral gastroenteritis. She reports that the baby has been moving less yesterday and today than usual. Yesterday she was eating and drinking normally but today she has been able to only keep a little bit of liquid down. Her contractions have been less recently thanthey were in the past. She denies any vaginal bleeding or leakage of fluid. She has a history of GDMA1. Her fasting sugars have ranged 86 to 108 with most less than 90. Her breakfast postprandials have ranged 123 to 151. Lunch postprandials have ranged 109 to 111 and dinner postprandial has only beenchecked once and it was 102. She reports that she continues to be very uncomfortable with the and is very anxious to have her section. MEDICATIONS See medication list updated in the EMR today. ALLERGIES See allergy list updated in the EMR today. SYSTEMS REVIEW GENERAL: Positive for fatigue and unintentional weight loss most likely due to her nausea and vomiting. No fevers, chills, unintentional weight loss or weight gain. HEENT: Positive for nasal congestion. No changes in vision or hearing, no sore throat. CARDIOVASCULAR: No chest pain, irregular heartbeator racing heart. RESPIRATORY: No shortness of breath, cough or wheeze. GASTROINTESTINAL: Positive for nausea, vomiting, diarrhea, constipation and abdominal pain - see HPI. GENITOURINARY: No pain or burning with urination, no irregular vaginal bleeding, heavy periods, painful periods, abnormal vaginaldischarge, leaking urine, leaking stool or gas. SKIN: No rashes or skin lesions. BREASTS: Positive for discharge from the nipples related to . No masses or lumps. NEUROLOGIC: No difficulty with memory, numbness, tingling, falls. PSYCHIATRIC: Positive for anxiety, [...] scanned into the EMR and updated today. IMPRESSION/REPORT/PLAN A 31-year-old 5, para 3-0-1-3 female at 35+3 weeks by last menstrual period consistent with 7+1 week ultrasound who presents for OB followup today. 1. care: No specific issues were addressed today. 2. contractions: The patient has a history of contractions and has been seen at the [facility] for this. Since I saw her last her contractions have actually become less than they werein the past. 3. Gestational diabetes mellitus A1: Her fasting sugars are almost all in the normal range. Only herbreakfast postprandials have been a bit high. She is not checking very regularly. I have encouraged her to be more diligent about checking in the past. I will continue to review her sugars and if it appears that they are trending up we will discuss starting her on medication. 4. History of prior section x3: She is on the schedule for planned section on 12/05/2016. 5. Major depressive disorder: She is not currently on medication for this. I will continue to followthis closely as the progresses and if her symptoms worsen we will discuss treatment options. 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 The patient reports that she has not had an outbreak in several years and does not really want to be on this and we agree that her risk of vaginal deliveryis quite low and her risk of an outbreak is quite low. At this time I have offered to give her a prescription for prophylaxis and she declines based on understanding of the risks and benefits of this. 7. Size greater than dates: Ultrasound performed on 10/27/2015 shows growth at the 75th percentile. Her fundal height is stable today. However if her fundal height continues to increase out of proportion to her gestational age I will repeat a growth ultrasound closer to delivery. 8. Obesity: I may need assistance at the time of section with retraction due to this. 9. History of preeclampsia: She had preeclampsia with her 4th and was treated with magnesium sulfate. Due to this baseline HELLP labs are ordered and a 24-hour urine was normal at 4 mg. Her blood pressure today is still in the normal range and we will continue to monitor this closely. 10. Decreased movement: The patient reports that the baby has been moving less yesterday and today so NST was recommended. NST was reactive today. 11. Followup: One week. Kristi Melissa M.D./pepe Electronically Signed By: KRISTI MELISSA MD On: 11/13/2016 05:22 PM Modified by and Electronically Signed by: KRISTI MELISSA MD On: 11/13/2016 05:22 PM [facility] Document Id: [id number] UTIVE ASSISTANT TO GENERAL COUNSEL documented in this encounter Procedure Notes Kristi Melissa M.D. - 11/10/2016 12:00 AM CST 2RPT INDICATIONS A 31-year-old 5, para 3-0-1-3 female at 35 plus 3 weeks by last menstrual period, consistentwith 7 plus 1 week ultrasound who presented for OB followup today but describes decreased movement, and therefore, NST was recommended. PROCEDURE HEART TONES: Baseline 125, moderate variability, reactive, no decelerations. TOCOMETER: No contractions. IMPRESSION Reactive nonstress test. Kristi Melissa M.D./pepe Electronically Signed By: KRISTI MELISSA MD On: 11/13/2016 05:19 PM [facility] Document Id: [id number] UTIVE ASSISTANT TO GENERAL COUNSEL documented in this encounter Nursing Notes Alexandra العلي L.PRodrigoNRodrigo - 11/10/2016 11:40 AM CST Zika At this time, there are 3 screening questions: 1. Have you or your partner traveled outside of [place] up to 6 months prior to this ? No- Denies 2. If so, where specifically have you or your partner traveled? Country, state? 3. If you or your partner have traveled to [place] since April 19, 2016; where in [place] did you travel? No- Denies Electronically Signed By: ALEXANRDA العلي LPN On: 11/10/2016 11:40 AM Source: [facility] POWERCHART Document Id: [id number] UTIVE ASSISTANT TO GENERAL COUNSEL documented in this encounter Miscellaneous Notes Miscellaneous - Kristi Melissa M.D. - 11/11/2016 10:17 AM CST Ambulatory Patient Summary [address] [id number] Visit Information Name: JOSEPHINE PHILLIPSNAILA JOHNSON [facility] Number: [id number] Current Date: 11/11/2016 10:17:24 Physicians Attending Provider: KRISTI MELISSA MD Primary Care Provider: MAILE ZARATE MD NANCY PHILLIPSE has been given the [...] the Following Medications: Medication list as of 11-11-16 10:17 Attention: If you have any medications at [...] Electronically Signed By: KRISTI MELISSA MD Signed On:11-NOV-2016 10:17:21 Your Allergies & Intolerances Substance Reaction Symptoms [...] Discrepancy Uterine Size Date Antepartum Preg Active Your Upcoming Appointments Date Time Location Provider 11/17/2016 14:30 [facility] PROFESSOR OF ASTRONOMY Kristi Melissa MD 11/24/2016 14:30 [facility] PROFESSOR OF ASTRONOMY Kristi Melissa MD Attention: Contact your local [...] if you dont have one. Go to [email or web address] and click on Create Your Account. Then, follow the directions to complete the online form. Youll be asked for your [facility] number which you can find at the top of this document. Your Goals/Additional instructions: Source: [facility] POWERCHART Document Id: [id number] UTIVE ASSISTANT TO GENERAL COUNSEL Miscellaneous - RaKristi ovalle M.D. - 11/11/2016 10:17 AM CST Ambulatory Discharge Medication List [address] [id number] Visit Information Name: NANCY PHILLIPS [facility] Number: [id number] Current Date: 11/11/2016 10:17:23 Attending Provider: KRISTI MELISSA MD Primary Care [...] the Following Medications: Medication list as of 11-11-16 10:17 Attention: If you have any medications at [...] Electronically Signed By: KRISTI MELISSA MD Signed On:11-NOV-2016 10:17:21 Additional Information: Source: [facility] POWERCHART Document Id: [id number] UTIVE ASSISTANT TO GENERAL COUNSEL Miscellaneous - Alexandra العلي, L.P.N. - 11/10/2016 11:29 AM CST Adult Care Transition Manager Intake/History Adult Care Transition Manager Intake/History Entered On: 11/10/2016 11:39 EXECUTIVE ASSISTANT TO GENERAL COUNSEL Performed On: 11/10/2016 11:29 EXECUTIVE ASSISTANT TO GENERAL COUNSEL by ALEXANDRA العلي DEMOGRAPHIC ANALYST Intake Chief Complaint : OBFU 35 + 3 weeeks LMP Date : 03/07/2016 Systolic Blood Pressure : 130 mmHg Diastolic Blood Pressure : 88 mmHg NIBP Mean : 102 mmHg BP Location : Left upper extremity Blood Pressure Cuff Size : Large Height : 164 cm(Converted to: 5 ft 5 inch(es), 65 inch(es)) Actual Weight : 126.6 kg(Converted to: 279 lb 2 oz) Weight Source : Standing scale Dosing Weight Clinic : 126.6 kg Clinic BSA : 2.4 Body Mass Index : 47.07 kg/m2 ALEXANDRA العلي LPN - 11/10/2016 11:29 EXECUTIVE ASSISTANT TO GENERAL COUNSEL General Info Languages : Sinhala Is Patient Female and 13-50 no hysterectomy : Yes Status : Confirmed positive Are you ? : No ALEXANDRA العلي LPN - 11/10/2016 11:29 EXECUTIVE ASSISTANT TO GENERAL COUNSEL Subjective Pain Symptoms : No ALEXANDRA العلي LPN - 11/10/2016 11:29 EXECUTIVE ASSISTANT TO GENERAL COUNSEL Dependent Habits Exposure to Tobacco Smoke : Other: never Smoking Status : Never smoker Tobacco 2A : No Tobacco Use/Currently Using : No Tobacco Use/Last 30 Days : No Tobacco Use/Last 12 months : No ALEXANDRA العلي LPN - 11/10/2016 11:29 EXECUTIVE ASSISTANT TO GENERAL COUNSEL Caffeine Use Grid Caffeine Use : Current Type : Soft drinks Frequency : Daily Amount : regular 1-2 cans daily ALEXANDRA العلي LPN - 11/10/2016 11:29 EXECUTIVE ASSISTANT TO GENERAL COUNSEL Source: [employer] Document Id: [id number] EXECUTIVE ASSISTANT TO GENERAL COUNSEL!35 UTIVE ASSISTANT TO GENERAL COUNSEL documented in this encounter Plan of Treatment Upcoming Encounters Date Type Specialty Care Team Description 08/17/2022 Procedure visit Neurology Marina Winter M.D., M.P.H. [address] [place] [phone] (Wo rk) Scheduled Procedures Name Priority Associated Diagnoses Date/Time LIFT THIGH Excessive And Redundant Skin And Subcutaneous Tissue documented as of this encounter Visit Diagnoses Not on filedocumented in this encounter Additional Health Concerns Assessment Noted Time PHQ-9 Depression Total Score: 13 06/14/2015 3:56 PM CD T documented as of this encounter
--- OUTSIDE RECORDS SUMMARY | 2022-07-24 15:15 | XMS_ITS | Encounter Summary ---
:1985 Author Organization [facility] Address [address] [place] [address] Care Team Providers Name Role Phone Unavailable Primary Care Provider Unavailable Encounter Details Date Type Department Care Team Description 10/27/2016 Hospital Encounter HX [facility] Ranjit Lee M.D. [address] [place], [place] [phone] (Wo rk) Social History [...] How often do you attend congregation or zoroastrian Never 07/04/2019 services? 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 - 10/27/2016 7:55 AM CST [id number] CHIEF COMPLAINT/REASON FOR VISIT OB followup and growth ultrasound. HISTORY OF PRESENT ILLNESS Nancy is a 31-year-old 5, para 3-0-1-3 female at 33+3 weeks by last menstrual period consistent with 7+1 week ultrasound who presents for OB followup today. Nancy recently transferred her care at 31+3 weeks. She has a history of 3 prior sections and GDM A1. We are planning a repeat C- section on 12/05/2016. She reports that the baby is moving well. She continues to have some occasional contractions, about the same as when she was seen last. She also has persistent pelvic pressure. She denies any vaginal bleeding or leakage of fluid. Her fasting sugars have ranged 80 to 94 with most being less than 90. Her lunch postprandials have ranged 110 to 146 with 4 of the 8 of them higherthan 120, and dinner postprandials have ranged 117 to 138. She is now checking her postprandials 2 hours after meals. Due to the pelvic pressure and contractions, a urinalysis was performed at the timeof the last visit and returned negative. The urine culture was also negative. MEDICATIONS See medication list updated in the EMR today. ALLERGIES See allergy list updated in the EMR today. SYSTEMS REVIEW GENERAL: Positive for fatigue related to . No fevers, chills, unintentional weight loss or weight gain. HEENT: No changes in vision or hearing, no sore throat or nasal congestion. CARDIOVASCULAR: No chest pain, irregular heartbeat or racing heart. RESPIRATORY: Positive for shortness of breathrelated to . No cough or wheeze. GASTROINTESTINAL: Positive for nausea, vomiting, constipation and abdominal pain related to . GENITOURINARY: No pain or burning with urination, no irregular vaginal bleeding, heavy periods, painful periods, abnormal vaginal discharge, leaking urine, le aking stool or gas. SKIN: No rashes or skin lesions. BREASTS: Positive for discharge from the nipples related to . No masses or lumps. NEUROLOGIC: No difficulty with memory, numbness, tingling, falls. PSYCHIATRIC: Positive for anxiety, depression, and difficulty sleeping. ENDOCRINE: Positive for hair loss. No heat intolerance, cold intolerance, excessive thirst. COMPLICATIONS OF See high-risk factors section on the OB flow sheet scanned into the EMR and updated today. VITAL SIGNS See results review section updated in the EMR today. PHYSICAL EXAMINATION See OB flow sheet scanned into the EMR and updated today. IMPRESSION/REPORT/PLAN Mdnnik-syet-xhd 5, para 3-0-1-3 female at 33+3 weeks by last menstrual period consistent with 7+1 week ultrasound who presents for OB followup today. 1. care: The patient will need to schedule an appointment to see our OB educator in the near future. 2. Gestational diabetes mellitus A1: The patient's fasting sugars are almost all in the normal range, but her lunch and dinner postprandials are on the high side in some instances. Four of the 8 lunch postprandials were higher than 120. I am going to continue to monitor this closely, but if she continues to have significant numbers of her postprandial sugars higher than 120 we will start her on an oral medication. I will also likely check hemoglobin A1c at the time of the next visit to get a better idea of her overall control. 3. History of prior x3: We will plan repeat section on 12/05/2016. I will likely require assistance due to the patient's size. 4. Major depressive disorder: The patient is not currently on medication for this. I will follow this closely as the progresses and if the symptoms worsen we will discuss treatment options. 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 6. Size greater than dates: Ultrasound was performed today and shows growth at the 75th percentile. If her fundal heights continue to increase out of proportion to her gestational age we will repeat the growth ultrasound closer to the time of delivery. 7. Obesity: As noted above, due to the patient's size, I will likely need assistance at the time of section with retraction, etc. 8. History of preeclampsia: The patient had preeclampsia with her fourth and was treated with magnesium sulfate. Due to this baseline, HELLP labs were obtained at the time of the last visit and 24 hour urine returned normal at 4 mg. 9. Pelvic pressure and contractions: Urinalysis and urine culture were performed at the time of the last visit. Specific gravity was high at 1.030, however, the urine culture was negative. The patient's cervix was checked today and is now 1 cm dilated/long/high. Reasons to present to the Women's Health Unit were discussed with the patient. 10. Followup: Two weeks. Kristi Melissa M.D./pepe Electronically Signed By: KRISTI MELISSA MD On: 11/02/2016 03:05 PM Source: [facility] MHSDOLBEYNONRADSYS Document Id: [id number] [place] CASHIER documented in this encounter Procedure Notes Alexandra العلي L.PRodrigoNRodrigo - 10/27/2016 8:19 AM CST Urine Dipstick Urine Dipstick Entered On: 10/27/2016 8:19 RETAIL CASHIER Performed On: 10/27/2016 8:19 RETAIL CASHIER by ALEXANDRA العلي LPN Urine Dipstick UA Color POC : Yellow UA Appear POC : Clear UA Protein POC : Trace UA Glucose POC : Negative ALEXANDRA العلي LPN - 10/27/2016 8:19 RETAIL CASHIER Source: [facility] POWERCHART Document Id: [id number] RETAIL CASHIER!6 [place] CASH[place] documented in this encounter Nursing Notes Alexandra العلي L.PRodrigoNRodrigo - 10/27/2016 8:18 AM CST Zika At this time, there are 3 screening questions: 1. Have you or your partner traveled outside of [place] up to 6 months prior to this ? No 2. If so, where specifically have you or your partner traveled? Country, state? NA 3. If you or your partner have traveled to [place] since April 19, 2016; where in [place] did you travel? No Electronically Signed By: ALEXANDRA العلي LPN On: 10/27/2016 08:18 AM Source: [facility] POWERCHART Document Id: [id number] [place] CASHIER documented in this encounter Miscellaneous Notes Miscellaneous - Kristi Melissa M.D. - 10/30/2016 11:44 AM CST Ambulatory Patient Summary [address] [id number] Visit Information Name: NANCY PHILLIPS [facility] Number: [id number] Current Date: 10/30/2016 11:44:36 Physicians Attending Provider: KRISTI MELISSA MD Primary [...] the Following Medications: Medication list as of 10-30-16 11:44 Attention: If you have any medications at [...] Electronically Signed By: KRISTI MELISSA MD Signed On:30-OCT-2016 11:44:34 Your Allergies & Intolerances Substance Reaction Symptoms [...] With Pers Hx Preeclampsia Previous Preg Active Your Upcoming Appointments Date Time Location Provider 11/10/2016 11:30 MERE UPHOLSTERER OUTSIDE Kristi Melissa MD 11/17/2016 14:30 MERE UPHOLSTERER OUTSIDE Kristi Melissa MD 11/24/2016 14:30 MERE UPHOLSTERER OUTSIDE Kristi Melissa MD Attention: Contact your local [...] if you dont have one. Go to [email or web address] and click on Create Your Account. Then, follow the directions to complete the online form. Youll be asked for your [facility] number which you can find at the top of this document. Your Goals/Additional instructions: Source: [facility] POWERCHART Document Id: [id number] [place] CASHIER Miscellaneous - Kristi Melissa M.D. - 10/30/2016 11:44 AM CST Ambulatory Discharge Medication List [address] [id number] Visit Information Name: NANCY PHILLIPS [facility] Number: [id number] Current Date: 10/30/2016 11:44:36 Attending Provider: KRISTI MELISSA MD Primary Care [...] the Following Medications: Medication list as of 10-30-16 11:44 Attention: If you have any medications at [...] Electronically Signed By: KRISTI MELISSA MD Signed On:30-OCT-2016 11:44:34 Additional Information: Source: [facility] POWERCHART Document Id: [id number] [place] CASHIER Miscellaneous - Alexandra العلي, L.P.N. - 10/27/2016 8:41 AM CST Dent Remover Documentation Dent Remover Documentation Entered On: 10/27/2016 8:42 RETAIL CASHIER Performed On: 10/27/2016 8:41 RETAIL CASHIER by ALEXANDRA العلي LPN Dent Remover Documentation Exam/Procedure Performed : Cervical check CD Dent Remover Present : Yes CD Dent Remover Name : Susana العلي LPN Present in Room During Exam/Procedure : Alone ALEXANDRA العلي LPN - 10/27/2016 8:41 RETAIL CASHIER Source: [facility] POWERCHART Document Id: [id number] RETAIL CASHIER!6 [place] CASHIER Miscellaneous - Alexandra العلي L.P.N. - 10/27/2016 8:10 AM CST Adult Director Product Development Intake/History Adult Director Product Development Intake/History Entered On: 10/27/2016 8:11 RETAIL CASHIER Performed On: 10/27/2016 8:10 RETAIL CASHIER by ALEXANDRA العلي LPN Intake Chief Complaint : OBFU growth US 33 + 3 weeks LMP Date : 03/07/2016 Systolic Blood Pressure : 116 mmHg Diastolic Blood Pressure : 80 mmHg NIBP Mean : 92 mmHg BP Location : Left upper extremity Blood Pressure Cuff Size : Regular Height : 164 cm(Converted to: 5 ft 5 inch(es), 65 inch(es)) Actual Weight : 127.5 kg(Converted to: 281 lb 1 oz) Weight Source : Standing scale Dosing Weight Clinic : 127.5 kg Clinic BSA : 2.41 Body Mass Index : 47.4 kg/m2 ALEXANDRA العلي LPN - 10/27/2016 8:10 RETAIL CASHIER General Info Languages : Luxembourgish Is Patient Female and 13-50 no hysterectomy : Yes Status : Confirmed positive Are you ? : No ALEXANDRA العلي LPN - 10/27/2016 8:10 RETAIL CASHIER Subjective Pain Symptoms : No ALEXANDRA العلي LPN - 10/27/2016 8:10 RETAIL CASHIER Dependent Habits Exposure to Tobacco Smoke : Other: never Smoking Status : Never smoker Tobacco 2A : No Tobacco Use/Currently Using : No Tobacco Use/Last 30 Days : No Tobacco Use/Last 12 months : No ALEXANDRA العلي LPN - 10/27/2016 8:10 RETAIL CASHIER Caffeine Use Grid Caffeine Use : Current Type : Soft drinks Frequency : Daily Amount : regular 1-2 cans daily ALEXANDRA العلي LPN - 10/27/2016 8:10 RETAIL CASHIER Source: [facility] POWERCHART Document Id: [id number] RETAIL CASHIER!35 [place] CASH[place] documented in this encounter Plan of Treatment Upcoming Encounters Date Type Specialty Care Team Description 08/17/2022 Procedure visit Neurology Marina Winter M.D., M.P.H. [address] [place], [place] [phone] (Wo rk) Scheduled Procedures Name Priority Associated Diagnoses Date/Time LIFT THIGH Excessive And Redundant Skin And Subcutaneous Tissue documented as of this encounter Procedures Procedure Name Priority Date/Time Associated Comments Diagnosis DIPSTICK, POCT, U Routine 10/27/2016 8:19 AM Resu lts for this (NURSING) INTERFACED RETAIL CASHIER procedu re are in the results section. documented in this encounter Results Dipstick, POCT, Urine (nursing) (10/27/2016 8:19 AM RETAIL CASHIER) Analysis Performed At [facility] Time Signature Color Yellow POWERCHART Appearance Clear POWERCHART Protein, POCT, Trace POWERCHART U Glucose, POCT, Negative POWERCHART U Specimen (Source) Anatomical Collection Method Collection Time Re ceived Time Location / / Volume Laterality 10/27/2016 8:19 AM RETAIL CASHIER Kristi Melissa M.D. LAB POCT ORDERABLES - DEVICE Performing Organization Address City/State/ZIP Code Phon e Number POWERCHART documented in this encounter Visit Diagnoses Not on filedocumented in this encounter Additional Health Concerns Assessment Noted Time PHQ-9 Depression Total Score: 13 06/14/2015 3:56 PM CD T documented as of this encounter
--- OUTSIDE RECORDS SUMMARY | 2022-07-24 15:15 | XMS_ITS | Encounter Summary ---
:1985 Author Organization [facility] Address [address] [place] [address] Care Team Providers Name Role Phone Unavailable Primary Care Provider Unavailable Encounter Details Date Type Department Care Team Description 11/02/2016 Hospital Encounter HX [facility] Ranjit Lee M.D. [address], [place] [phone] (Wo rk) Social History [...] How often do you attend samaritan or mosque Never 07/04/2019 services? 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 - 11/02/2016 2:09 PM CST [id number] CHIEF COMPLAINT/REASON FOR VISIT Acute OB visit due to contractions. HISTORY OF PRESENT ILLNESS Nancy is a 31-year-old, 5, para 3-0-1-3 female at 34+2 weeks by last menstrual period consistent with 7+1 week ultrasound, who presents for an acute OB visit today after she was seen last night on Labor and Delivery with contractions. Nancy reports that yesterday evening, she had contractions that were quite strong and were regular. They are not as strong now but she continues to feel cramping and possibly contractions. She called reporting this to the clinic earlier and she was asked tocome in. She denies any vaginal bleeding or leakage of fluid and she reports that the baby is movingwell. She has a history of GDM A1 and reports that her fasting sugar was 82 today and she will need to check her sugar in the next half an hour. She does report that she had increased mucousy vaginal discharge earlier this week but that has decreased. MEDICATIONS See medication list updated in the EMR today. ALLERGIES See allergy list updated in the EMR today. SYSTEMS REVIEW GENERAL: Positive for fatigue and unintentional weight loss. HEENT: Positive for nasal congestion. CARDIOVASCULAR: No chest pain, irregular heartbeat or racing heart. RESPIRATORY: No shortness of breath, cough or wheeze. GASTROINTESTINAL: Positive for nausea, vomiting, diarrhea, constipation, and abdominal pain, all likely related to . GENITOURINARY: Positive for abnormal vaginal discharge -see HPI. SKIN: No rashes or skin lesions. BREASTS: Positive for discharge from the nipples related to . NEUROLOGIC: No difficulty with memory, numbness, tingling, falls. PSYCHIATRIC: Positive anxiety, depression, and difficulty sleeping. ENDOCRINE: Positive for hair loss. COMPLICATIONS OF See high-risk factor section on the OB flow sheet scanned into the EMR and updated today. VITAL SIGNS See results review section updated in the EMR today. PHYSICAL EXAMINATION See OB flow sheet scanned into the EMR and updated today. IMPRESSION/REPORT/PLAN A 31-year-old 5, para 3-0-1-3 female at 34+2 weeks by last menstrual period consistent with 7+1 week ultrasound who presents for an acute Obstetrics visit today due to increased contractions last evening. 1. care: No specific issues addressed today. 2. contractions: The patient had contractions last evening and was seen on Labor and Delivery for this. Per the notes from [facility], she had contractions every 3 to 5 minutes initially but they became irregular with fluids and rest. She had no cervical change at that time. Her cervical exam today is unchanged from when I last checked her nearly a week ago. No contractions were noted on the monitor, though there was some evidence of uterine irritability. She was reassured regarding this. 3. Gestational diabetes mellitus A1: Her fasting sugars were almost all in the normal range when assessed at the time of the last visit but her lunch and dinner postprandials were on the high side in some instances. I will review these in detail when she returns because we may need to start her on medication if she continues to have numbers that are higher than 120 two hours postprandial. 4. History of prior section x3: She is on the schedule for planned repeat section on 12/05/2016. 5. Major depressive disorder: She is not currently on medication for this. I will continue to followthis closely as the progresses and if her symptoms worsen, we will discuss treatment options. 6. Herpes simplex virus 2: I will need to discuss with the patient at the time of the next visit whether she would like to be on prophylaxis for the rare event that she would have a vaginal delivery unexpectedly. 7. Size greater than dates: Ultrasound was performed at the time of last visit and showed growth at the 75th percentile. Her fundal height is stable today. However, if it were to increase out of portion to her gestational age, I would repeat a growth ultrasound closer to delivery. 8. Obesity: As noted above, I may need assistance at the time of section with retraction, etc. due to this. 9. History of preeclampsia: The patient had preeclampsia with her 4th and was treated withmagnesium sulfate. Due to this, baseline HELLP labs were obtained and a 24-hour urine returned normal at 4 mg. 10. Followup: One week. Kristi Melissa M.D./pepe Electronically Signed By: KRISTI MELISSA MD On: 11/06/2016 01:18 PM Source: [facility] MHSDOLBEYNONRADSYS Document Id: [id number] DENTIAL MANAGER documented in this encounter Procedure Notes Kristi Melissa M.D. - 11/02/2016 12:00 AM CST 2RPT This is an NST procedure note. INDICATIONS A 31-year-old 5, para 3-0-1-3 female at 34 + 2 weeks by last menstrual period consistent with 7 + 1 week ultrasound who presented due to increased cramping, possibly contractions, and NST was recommended due to this. PROCEDURE heart tones: Baseline 130, moderate variability, reactive, no decelerations. Tocometer: Possible uterine irritability but no contractions noted on the monitor. IMPRESSION Reactive nonstress test, no contractions. Kristi Melissa M.D./israel Electronically Signed By: KRISTI MELISSA MD On: 11/06/2016 01:17 PM Source: [facility] MHSDOLKARIEYNYUMIKO Document Id: [id number] DENTIAL MANAGER documented in this encounter Miscellaneous Notes Miscellaneous - Kristi Melissa M.D. - 11/02/2016 4:21 PM CST Ambulatory Patient Summary [address] [id number] Visit Information Name: NANCY PHILLIPS [facility] Number: [id number] Current Date: 11/02/2016 16:21:01 Physicians Attending Provider: KRISTI MELISSA MD Primary [...] the Following Medications: Medication list as of 11-02-16 16:21 Attention: If you have any medications at [...] Electronically Signed By: KRISTI MELISSA MD Signed On:02-NOV-2016 16:20:58 Your Allergies & Intolerances Substance Reaction Symptoms [...] Date Time Location Provider 11/10/2016 11:30 MERE ELECTRIC CONTAINER TESTER Kristi Melissa MD 11/17/2016 14:30 MERE ELECTRIC CONTAINER TESTER Kristi Melissa MD 11/24/2016 14:30 MERE ELECTRIC CONTAINER TESTER Kristi Melissa MD Attention: Contact your local [...] if you dont have one. Go to [email or web address] and click on Create Your Account. Then, follow the directions to complete the online form. Youll be asked for your [facility] number which you can find at the top of this document. Your Goals/Additional instructions: Source: [facility] POWERCHART Document Id: [id number] DENTIAL MANAGER Miscellaneous - Kristi Melissa M.D. - 11/02/2016 4:21 PM CST Ambulatory Discharge Medication List [address] [id number] Visit Information Name: NANCY PHILLIPS [facility] Number: [id number] Current Date: 11/02/2016 16:21:00 Attending Provider: KRISTI MELISSA MD Primary Care Provider: MAILE ZARATE MD ALANJOSEPHINENANCY ELIZABETH has been given the [...] the Following Medications: Medication list as of 11-02-16 16:21 Attention: If you have any medications at [...] Electronically Signed By: KRISTI MELISSA MD Signed On:02-NOV-2016 16:20:58 Additional Information: Source: [facility] POWERCHART Document Id: [id number] DENTIAL MANAGER Miscellaneous - Alexandra العلي L.P.N. - 11/02/2016 2:17 PM CST Adult Postbed Stitcher Intake/History Adult Postbed Stitcher Intake/History Entered On: 11/02/2016 14:18 RESIDENTIAL MANAGER Performed On: 11/02/2016 14:17 RESIDENTIAL MANAGER by ALEXANDRA العلي LPN Intake Chief Complaint : OBFU 34 + 2 weeks LMP Date : 03/07/2016 Systolic Blood Pressure : 118 mmHg Diastolic Blood Pressure : 74 mmHg NIBP Mean : 89 mmHg BP Location : Left upper extremity Blood Pressure Cuff Size : Large Height : 164 cm(Converted to: 5 ft 5 inch(es), 65 inch(es)) Actual Weight : 127.9 kg(Converted to: 282 lb 0 oz) Weight Source : Standing scale Dosing Weight Clinic : 127.9 kg Clinic BSA : 2.41 Body Mass Index : 47.55 kg/m2 ALEXANDRA العلي LPN - 11/02/2016 14:17 RESIDENTIAL MANAGER General Info Languages : Welsh Is Patient Female and 13-50 no hysterectomy : Yes Status : Confirmed positive Are you ? : No ALEXANDRA العلي LPN - 11/02/2016 14:17 RESIDENTIAL MANAGER Subjective Pain Symptoms : No ALEXANDRA العلي LPN - 11/02/2016 14:17 RESIDENTIAL MANAGER Dependent Habits Exposure to Tobacco Smoke : Other: never Smoking Status : Never smoker Tobacco 2A : No Tobacco Use/Currently Using : No Tobacco Use/Last 30 Days : No Tobacco Use/Last 12 months : No ALEXANDRA العلي LPN - 11/02/2016 14:17 RESIDENTIAL MANAGER Caffeine Use Grid Caffeine Use : Current Type : Soft drinks Frequency : Daily Amount : regular 1-2 cans daily ALEXANDRA العلي LPN - 11/02/2016 14:17 RESIDENTIAL MANAGER Source: [facility] POWERCHART Document Id: [id number] RESIDENTIAL MANAGER!35 DENTIAL MANAGER documented in this encounter Plan of Treatment Upcoming Encounters Date Type Specialty Care Team Description 08/17/2022 Procedure visit Neurology Marina Winter M.D., M.P.H. [address] [phone] (Wo rk) Scheduled Procedures Name Priority Associated Diagnoses Date/Time LIFT THIGH Excessive And Redundant Skin And Subcutaneous Tissue documented as of this encounter Visit Diagnoses Not on filedocumented in this encounter Additional Health Concerns Assessment Noted Time PHQ-9 Depression Total Score: 13 06/14/2015 3:56 PM CD T documented as of this encounter
--- OUTSIDE RECORDS SUMMARY | 2022-07-24 15:15 | XMS_ITS | Encounter Summary ---
:1985 Author Organization [facility] Address [address] [place] [address] Care Team Providers Name Role Phone Unavailable Primary Care Provider Unavailable Encounter Details Date Type Department Care Team Description 11/13/2016 Hospital Encounter HX NO MAPPING Eva Booth M.D. [address] [place], [place] [phone] (Wo rk) Social History [...] 03/29/2020 relatives? How often do you attend lutheran or alevism Never 07/04/2019 services? Do you belong to any clubs or organizations such as No 07/04/2019 lutheran groups, unions, fraternal or athletic groups, or [...] at Date Recorded Female 10/16/2018 10:53 AM [employer] documented as of this encounter Plan of Treatment Upcoming Encounters Date Type Specialty Care Team Description 08/17/2022 Procedure visit Neurology Marina Winter M.D., M[facility] [address] [place] [phone] (Wo rk) Scheduled Procedures Name Priority Associated Diagnoses Date/Time LIFT THIGH Excessive And Redundant Skin And Subcutaneous Tissue documented as of this encounter Visit Diagnoses Not on filedocumented in this encounter Additional Health Concerns Assessment Noted Time PHQ-9 Depression Total Score: 13 06/14/2015 3:56 PM CD T documented as of this encounter
--- OUTSIDE RECORDS SUMMARY | 2022-07-24 15:15 | XMS_ITS | Encounter Summary ---
:1985 Author Organization [facility] Address [address] [place] [address] Care Team Providers Name Role Phone Unavailable Primary Care Provider Unavailable Encounter Details Date Type Department Care Team Description 10/13/2016 Hospital Encounter HX [facility] Ranjit Lee M.D. [address], [place] [phone] (Wo rk) Social History [...] How often do you attend baptist or moravian Never 07/04/2019 services? 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 10:53 AM ADVANCE AGENT documented as of this encounter Last Filed Vital Signs Vital Sign Reading Time Taken Comments Blood Pressure 118/64 10/13/2016 10:15 AM ADVANCE AGENT Pulse - - Temperature - - Respiratory Rate - - Oxygen Saturation - - Inhaled Oxygen Concentration - - Weight 127 kg (280 lb 10.3 oz) 10/13/2016 10:15 AM ADVANCE AGENT Height 164 cm (5' 4.57) 10/13/2016 10:15 AM ADVANCE AGENT Body Mass Index 47.33 10/13/2016 10:15 AM ADVANCE AGENT documented in this encounter H&P Notes Cassie Melissa M.D. - 10/13/2016 9:47 AM CST [id number] CHIEF COMPLAINT/REASON FOR VISIT Transfer of care for OB care. HISTORY OF PRESENT ILLNESS Nancy is a 31-year-old 5, para 3-0-1-3 female at 31+3 weeks by last menstrual period consistent with 7+1 week ultrasound who presents to transfer care with her . She reports that shehad a normal period in February of 2016 followed by a period in March of 2016 that began on the . It only lasted 2 days and was light. She has a history of 3 prior sections and has had gestational diabetes with each of her pregnancies. She also had preeclampsia with her last . She reports that she has been very uncomfortable and has not been feeling well with this . She feelspelvic pain, contractions, and pelvic pressure. She reports that the contractions are not better with rest and they actually increase when she is laying down. She also reports epigastric pain that she had recently that lasted about half an hour and then resolved spontaneously. She denies any upper back pain or fevers or chills, but she does have a history of pyelonephritis with her first . She has constipation related to . She reports that the baby is moving well. As noted above she has had some contractions but denies any vaginal bleeding or leakage of fluid. This is complicated by GDM A1. The patient did not bring her sugar log with her today, but reports that her fasting was 94 this morning and her postprandials have ranged 109 to 135 and she is checking them an hour postprandial. MEDICATIONS See medication list updated in the EMR today. ALLERGIES See allergy list updated in the EMR today. SYSTEMS REVIEW GENERAL: Positive for fatigue and unintentional weight loss. HEENT: Positive for nasal congestion likely related to . No changes in vision or hearing, no sore throat. CARDIOVASCULAR: No chest pain, irregular heartbeat or racing heart. RESPIRATORY: No shortness of breath, cough or wheeze. GASTROINTESTINAL: Positive for nausea and constipation related to . GENITOURINARY: No pain or burning with urination, no irregular vaginal bleeding, heavy periods, painful periods, abnormal vaginaldischarge, leaking urine, leaking stool or gas. SKIN: No rashes or skin lesions. BREASTS: No masses or lumps. Positive discharge from the nipples related to . NEUROLOGIC: Positive for difficulty with memory. No difficulty with numbness, tingling, falls. PSYCHIATRIC: Positive for anxiety, depression, and difficulty sleeping. ENDOCRINE: No heat intolerance, cold intolerance, excessive thirst or hair loss. PAST MEDICAL/SURGICAL HISTORY PAST MEDICAL HISTORY: See problem list updated in the EMR today. PAST SURGICAL HISTORY: See procedure history updated in the EMR today. WEATHERIZATION SPECIALIST HISTORY 5, para 3-0-1-3 female status post 3 sections. The first in 2004 was at 40 weeks and she had arrest of descent and delivered a 7 pound 4 ounce female. The second in 2010 was at 37 weeks and she delivered a 5 pound 11 ounce male and had an active HSV lesion at the time of labor, and the third was in May of 2013 at 38+4 weeks and she delivered a 3599 g male. She also has a history of a spontaneous in 2006. She has a history of chlamydia that was treated and also genital herpes. She has no history of abnormal Pap smears. SOCIAL HISTORY No tobacco, alcohol, or drug use. No caffeine use. The patient denies any concerns about abuse. She is to her , Samir, who is the father of the baby and she is a fqqn-ug-qsnh mom. FAMILY HISTORY Please see the family history section updated in the EMR today. VITAL SIGNS See results review section updated in the EMR today. PHYSICAL EXAMINATION GENERAL: Well-nourished female in no acute distress. HEAD: Normocephalic, atraumatic. EENT: Vision and hearing grossly intact. RESPIRATORY: Breathing nonlabored. ABDOMEN: Soft, gravid, nontender, normoactive bowel sounds. Fetus vertex by Tarik's. Doptones present in the 140s. Fundal height 40 cm. LOWER EXTREMITIES: Nontender, no edema. SKIN: No rashes or lesions. NEUROLOGIC: Alert and oriented x3. IMPRESSION/REPORT/PLAN Acowqz-owlc-wzl 5, para 3-0-1-3 female at 31+3 weeks by last menstrual period, consistent with 7+1 week ultrasound, who presents in transfer of care for OB care. 1. care: I will have the patient see our RN in the near future for education. We will arrange this at the time of the next visit. 2. Gestational diabetes mellitus A1: The patient did not bring her sugar log with her today. Her reported fasting today is a little bit elevated at 94, but her postprandials are all in the normal range. She is checking them one hour postprandial. I will review her log at the time of the next visit. 3. Size greater than dates: Fundal height is more than 2 cm discrepant from the gestational age. Upon my review of the visits in [place], her fundal height was measuring appropriate for gestational age. However, due to the significant difference at this time, I am going to recommend a growth ultrasound at the time of the next visit. 4. Prior section x3: Due to this history of sections, she will need a repeat section with this and she was counseled regarding that. We will schedule this for 12/05/2016 at 39 weeks. Due to the patient's significant obesity, I will have extra assistance for the section. 5. Major depressive disorder: The patient is not currently on any medication for this. I will monitor her mood as the progresses and discuss interventions if necessary. 6. History of HSV-2: I will discuss with the patient whether we will start her on prophylaxis at 36 weeks as this gets closer. She will require a section anyway, so she may choose not to do this. However, in the rare event that she had an unplanned vaginal delivery, it would be important thatshe would not have any active genital lesions as she did with her second at the time of labor. 7. Pelvic pressure and contractions: The patient's cervix is closed, long and high today. We have discussed the need to come in if she has a change in the pressure or the contractions. 8. Followup: In 2 weeks for OB followup and growth ultrasound. Cassie Melissa M.D./pepe Electronically Signed By: CASSIE MELISSA MD On: 11/02/2016 03:06 PM Source: [facility] MHSDOLKARIEYNSHERINESYS Document Id: [id number] NCE AGENT documented in this encounter Procedure Notes Tonya العلي L.P.N. - 10/13/2016 12:46 PM CST Urine Dipstick Urine Dipstick Entered On: 10/13/2016 12:47 ADVANCE AGENT Performed On: 10/13/2016 12:46 ADVANCE AGENT by TONYA العلي LPN Urine Dipstick UA Color POC : Chinyere UA Appear POC : Clear UA Leuk POC : Negative UA Nitrite POC : Negative UA Urobilinogen POC : 0.2 mg/dl UA Protein POC : 1+ (30 mg/dl) UA pH POC : 5.5 UA Blood POC : Negativ UA Spec Grav POC : 1.030 UA Ketones POC : Small (15 mg/dl) UA Bili POC : 1+ Small UA Glucose POC : Negative TONYA العلي LPN - 10/13/2016 12:46 ADVANCE AGENT Source: [employer] Document Id: [id number] ADVANCE AGENT!14 NCE AGENT Tonya العلي L.P.N. - 10/13/2016 11:06 AM CST Urine Dipstick Urine Dipstick Entered On: 10/13/2016 11:06 ADVANCE AGENT Performed On: 10/13/2016 11:06 ADVANCE AGENT by TONYA العلي LPN Urine Dipstick UA Color POC : Yellow UA Appear POC : Clear UA Protein POC : Trace UA Glucose POC : Negative TONYA العلي LPN - 10/13/2016 11:06 ADVANCE AGENT [facility] Document Id: [id number] ADVANCE AGENT!6 NCE AGENT documented in this encounter Nursing Notes Tonya العلي L.P.N. - 10/13/2016 10:18 AM CST Zika At this time, there are 3 screening questions: 1. Have you or your partner traveled outside of [place] up to 6 months prior to this ? No 2. If so, where specifically have you or your partner traveled? Country, state? NA 3. If you or your partner have traveled to [place] since April 19, 2016; where in [place] did you travel? No Electronically Signed By: TONYA العلي LPN On: 10/13/2016 10:19 AM Source: [facility] POWERCHART Document Id: [id number] NCE AGENT documented in this encounter Miscellaneous Notes Miscellaneous - Cassie Melissa M.D. - 10/30/2016 11:41 AM CST Ambulatory Discharge Medication List [address] [id number] Visit Information Name: NANCY PHILLIPS [facility] Number: [id number] Current Date: 10/30/2016 11:41:49 Attending Provider: CASSIE MELISSA MD Primary Care [...] medications. Medication/Strength Dose Route Frequency Indications/Special Instructions/Comments/Notes multivitamin, ( Multivitamins) 1 TAB Oral once a day Attention: If you have any medications at [...] Electronically Signed By: CASSIE MELISSA MD Signed On:30-OCT-2016 11:41:47 Additional Information: Source: [facility] POWERCHART Document Id: [id number] NCE AGENT Miscellaneous - Cassie Melissa M.D. - 10/30/2016 11:41 AM CST Ambulatory Patient Summary [address] [id number] Visit Information Name: NANCY PHILLIPS [facility] Number: [id number] Current Date: 10/30/2016 11:41:50 Physicians Attending Provider: CASSIE MELISSA MD Primary [...] medications. Medication/Strength Dose Route Frequency Indications/Special Instructions/Comments/Notes multivitamin, ( Multivitamins) 1 TAB Oral once a day Attention: If you have any medications at [...] Electronically Signed By: CASSIE MELISSA MD Signed On:30-OCT-2016 11:41:47 Your Allergies & Intolerances Substance Reaction Symptoms [...] Preg Not First 1st Preg (IUPF) Active Your Upcoming Appointments Date Time Location Provider 11/10/2016 11:30 [facility] WEATHERIZATION SPECIALIST Cassie Melissa MD 11/17/2016 14:30 [facility] WEATHERIZATION SPECIALIST Cassie Melissa MD 11/24/2016 14:30 [facility] WEATHERIZATION SPECIALIST Cassie Melissa MD Attention: Contact your local Clinic [...] if you dont have one. Go to [email or web address] and click on Create Your Account. Then, follow the directions to complete the online form. Youll be asked for your [facility] number which you can find at the top of this document. Your Goals/Additional instructions: Source: [facility] [employer] Document Id: [id number] NCE AGENT Miscellaneous - Cassie Melissa M.D. - 10/16/2016 2:35 PM CST Results Notification Document Contains Addenda Addendum by TONYA العلي LPN on October 17, 2016 09:11:15 ADVANCE AGENT Added to chart, patient has been notified. From: CASSIE MELISSA MD To: RADHA HAMMOND RN; Sent: 10/16/2016 14:35:47 ADVANCE AGENT ! Show up: 10/16/2016 14:35:47 ADVANCE AGENT Subject: Results Notification Actions: Note to Nurse Reminder Comments: Please add result to chart. Please let patient know that the urine culture did not show a UTI. Results: Date Result Type Ind Result Name MBO Review Culture Urine Source: [facility] [employer] Document Id: [id number] Cassie Salguero M.D. - 10/13/2016 5:57 PM CST Results Notification Document Contains Addenda Addendum by TONYA العلي LPN on October 17, 2016 09:08:05 ADVANCE AGENT added to chart. From: CASSIE MELISSA MD To: RADHA HAMMOND RN; Sent: 10/13/2016 17:57:41 ADVANCE AGENT ! Show up: 10/13/2016 17:57:41 ADVANCE AGENT Subject: Results Notification Actions: Note to Nurse Reminder Comments: Please add result to chart. Results: Date Result Name Ind Value Ref Range 10/13/2016 11:21 Creatinine (L) 0.49 mg/dL (0.60 - 1.10) 10/13/2016 11:21 EGFR (MDRD) >60 mL/min/1.73m2 (>=60 - ) 10/13/2016 11:21 EGFR (MDRD) >60 mL/min/1.73m2 (>=60 - ) 10/13/2016 11:21 BUN 6 mg/dL (6 - 21) 10/13/2016 11:21 AST 14 unit/L (8 - 43) 10/13/2016 11:21 ALT 7 unit/L (7 - 45) Source: [facility] POWERCHART Document Id: [id number] Electronically signed by Conversion, [facility] Performance Engineer [id number] at 04/01/2017 7:16 AM CDT Cassie Salguero M.D. - 10/13/2016 3:45 PM CST Results Notification Document Contains Addenda Addendum by TONYA العلي LPN on October 17, 2016 09:07:22 ADVANCE AGENT added to chart. From: CASSIE MELISSA MD To: RADHA HAMMOND RN; Sent: 10/13/2016 15:45:37 ADVANCE AGENT ! Show up: 10/13/2016 15:45:37 ADVANCE AGENT Subject: Results Notification Actions: Note to Nurse Reminder Comments: Please add result to chart. Results: Date Result Name Ind Value Ref Range 10/13/2016 11:21 Hgb 12.7 g/dL (12.0 - 15.5) 10/13/2016 11:21 Hct 37.3 % (34.9 - 44.5) 10/13/2016 11:21 WBC (H) 10.7 x10(9)/L (3.4 - 10.5) 10/13/2016 11:21 RBC 4.34 x10(12)/L (3.90 - 5.03) 10/13/2016 11:21 MCV 85.9 fL (82.0 - 98.0) 10/13/2016 11:21 RDW 14.2 % (11.9 - 15.5) 10/13/2016 11:21 Platelet 250 x10(9)/L (150 - 450) Source: [facility] POWERCHART Document Id: [id number] Electronically signed by Conversion, [facility] Performance Engineer [id number] at 04/01/2017 7:16 AM CDT Miscellaneous - Tonya العلي L.PRodrigoN. - 10/13/2016 3:43 PM CST FB surgery prior auth Document Contains Addenda Addendum by MARK LEONARDO on November 16, 2016 15:45:13 ADVANCE AGENT From: MARK LEONARDO ([facility] Parts Data Writer/Prior Authorizations) To: Obstetrics/Gynecology Nurse; Sent: 11/16/2016 15:45:13 ADVANCE AGENT Subject: RE: FB surgery prior auth No auth needed. From: TONYA العلي LPN ( Obstetrics/Gynecology Nurse) To: [facility] Parts Data Writer/Prior Authorizations; Sent: 10/13/2016 15:43:03 ADVANCE AGENT Subject: FB surgery prior auth [facility] Surgery Clinic Checklist Patient Contact Number: [phone] Surgeon: Dr. Melissa Surgical Service: (_) Orthopedics (_) General surgery (_) Ophthalmology (_) Podiatry (_) ENT (_) Urology (X) OB / Gynecology (_) Other Date of Surgery: 12/05/2016 Place of Surgery: [facility] Pre-Admit FIN: Procedure (as written on Consent): Section with Tubal Ligation Right, Left, Bilateral, N/A: Bilateral Diagnosis (reason for surgery): , not first with previous section ICD-10: Z34.90 CPT:65539 Work Comp: (X) No (_) Yes Surgeon Anticipated Time: 729 Case Type: (_) Outpatient (_) AM Admit (X) Inpatient (_) Other Pre-op MD: Dr. Melissa Post-Op Appt:(time frame when to return) 2 weeks Surgery Brochure Given: (X) Yes (_) No (_) Mailed to Patient SPECIAL EQUIPMENT/SPECIAL INSTRUCTION: Special Equipment needed: _ Rep Needed: (_) No (_) Yes Special Instructions/Prep: _ Radiology Needs: _ OT Post-op Appt Needed: (_) No (_) Yes Source: [facility] POWERCHART Document Id: [id number] Electronically signed by Maria R [facility] Performance Engineer [id number] at 04/01/2017 7:16 AM CDT Miscellaneous - Tonya العلي L.P.N. - 10/13/2016 12:47 PM CST *General Message Document Contains Addenda Addendum by TONYA العلي LPN on October 13, 2016 15:52:35 ADVANCE AGENT Patient notified. Addendum by CASSIE MELISSA MD on October 13, 2016 14:42:22 ADVANCE AGENT From: CASSIE MELISSA MD To: Obstetrics/Gynecology Nurse; Sent: 10/13/2016 14:42:22 ADVANCE AGENT Subject: RE: *General Message Please let her know that her Urine test that we did today does not look like she has an infection, but we will send a culture to check and see for sure. From: TONYA العلي LPN ( Obstetrics/Gynecology Nurse) To: CASSIE MELISSA MD; Sent: 10/13/2016 12:47:51 ADVANCE AGENT Subject: *General Message Please see UA dipstick results and order UCX. Thanks! Source: [facility] POWERCHART Document Id: [id number] Electronically signed by Maria R [facility] Performance Engineer [id number] at 04/01/2017 7:16 AM CDT Miscellaneous - Tonya العلي L.P.NRodrigo - 10/13/2016 11:06 AM CST Package Dyeing Machine Operator Documentation Package Dyeing Machine Operator Documentation Entered On: 10/13/2016 11:06 ADVANCE AGENT Performed On: 10/13/2016 11:06 ADVANCE AGENT by TONYA العلي LPN Package Dyeing Machine Operator Documentation Exam/Procedure Performed : Cervical check CD Package Dyeing Machine Operator Present : Yes CD Package Dyeing Machine Operator Name : Susana العلي LPN Present in Room During Exam/Procedure : Friend TONYA العلي LPN - 10/13/2016 11:06 ADVANCE AGENT Source: [facility] [employer] Document Id: [id number] ADVANCE AGENT!6 NCE AGENT Miscellaneous - Tonya العلي L.P.N. - 10/13/2016 10:15 AM CST [employer] Controls Engineer Intake/History Adult Plc Controls Engineer Intake/History Entered On: 10/13/2016 10:17 ADVANCE AGENT Performed On: 10/13/2016 10:15 ADVANCE AGENT by TONYA العلي LPN Intake Chief Complaint : OB transfer of care 31 + 3 weeks LMP Date : 03/07/2016 Systolic Blood Pressure : 118 mmHg Diastolic Blood Pressure : 64 mmHg NIBP Mean : 82 mmHg BP Location : Right upper extremity Blood Pressure Cuff Size : Large Height : 164 cm(Converted to: 5 ft 5 inch(es), 65 inch(es)) Actual Weight : 127.3 kg(Converted to: 280 lb 10 oz) Weight Source : Standing scale Dosing Weight Clinic : 127.3 kg Clinic BSA : 2.41 Body Mass Index : 47.33 kg/m2 TONYA العلي LPN - 10/13/2016 10:15 ADVANCE AGENT General Info Languages : Turkish Is Patient Female and 13-50 no hysterectomy : Yes Status : Confirmed positive Are you ? : No ELIANETONYA Marie PRADEEP - 10/13/2016 10:15 ADVANCE AGENT Subjective Pain Symptoms : No TONYA العلي PRADEEP - 10/13/2016 10:15 ADVANCE AGENT Dependent Habits Exposure to Tobacco Smoke : Other: never Smoking Status : Never smoker Tobacco 2A : No Tobacco Use/Currently Using : No Tobacco Use/Last 30 Days : No Tobacco Use/Last 12 months : No ELIANETONYA PRADEEP - 10/13/2016 10:15 ADVANCE AGENT Caffeine Use Grid Caffeine Use : Current Type : Soft drinks Frequency : Daily Amount : regular 1-2 cans daily ELIANETONYA Nadia FERNÁNDEZ - 10/13/2016 10:15 ADVANCE AGENT Source: [employer] Document Id: [id number] ADVANCE AGENT!35 NCE AGENT documented in this encounter Plan of Treatment Upcoming Encounters Date Type Specialty Care Team Description 08/17/2022 Procedure visit Neurology Marina Winter M.D., M.P.H. [address] [place] [phone] (Wo rk) Scheduled Procedures Name Priority Associated Diagnoses Date/Time LIFT THIGH Excessive And Redundant Skin And Subcutaneous Tissue documented as of this encounter Procedures Procedure Name Priority Date/Time Associated Comments Diagnosis BACTERIAL CULTURE, Routine 10/13/2016 5:01 Result s for this AEROBIC, URINE PM ADVANCE AGENT procedure are in the results section. DIPSTICK, POCT, U Routine 10/13/2016 12:46 Result s for this (NURSING) INTERFACED PM ADVANCE AGENT procedu re are in the results section. CBC WITHOUT Routine 10/13/2016 11:21 Results for this DIFFERENTIAL, B AM ADVANCE AGENT procedure ar e in the results section. BUN (BLOOD UREA Routine 10/13/2016 11:21 Results for this NITROGEN), S/P AM ADVANCE AGENT procedure are in the results section. ALANINE AMINOTRANSFERASE Routine 10/13/2016 11:21 Results for this (ALT), S/P AM ADVANCE AGENT procedure are i n the results section. ASPARTATE Routine 10/13/2016 11:21 Results for this AMINOTRANSFERASE (AST), AM ADVANCE AGENT proc edure are in S/P the results section. CREATININE WITH EGFR, Routine 10/13/2016 11:21 Re sults for this S/P AM ADVANCE AGENT procedure are i n the results section. DIPSTICK, POCT, U Routine 10/13/2016 11:06 Result s for this (NURSING) INTERFACED AM ADVANCE AGENT procedu re are in the results section. documented in this encounter Results Bacterial Culture, Aerobic, Urine (10/13/2016 5:01 PM ADVANCE AGENT) [facility] Method Time Signature Bacterial POWERCHART Culture, Aerobic, Urine HXFinak Mixed carmelo. No POWERCHART further studies unless notified. [facility] POWERCHART Microbiology laboratory [phone]. Specimen (Source) Anatomical Collection Method Collection Time Re ceived Time Location / / Volume Laterality Urine, First 10/13/2016 5:01 PM Voided ADVANCE AGENT Cassie Melissa M.D. LAB MICROBIOLOGY - GENERAL O RDERABLES Performing Organization Address City/[facility] Code Phon e Number POWERCHART Dipstick, POCT, Urine (nursing) (10/13/2016 12:46 PM ADVANCE AGENT) [facility] Method Time Signature Color Chinyere POWERCHART Appearance Clear POWERCHART Leukocytes, Negative POWERCHART POCT, U Nitrites, Negative POWERCHART POCT, U Urobilinogen, 0.2 mg/dl POWERCHART POCT, Urine Protein, POCT, 1+ (30 POWERCHART U mg/dl) pH, POCT, 5.5 5.0 - 9.0 POWERCHART Urine Blood, POCT, U Negativ POWERCHART Specific 1.030 1.000 - POWERCHART [place] [employer], POCT, 1.030 U Ketone, POCT, Small (15 POWERCHART U mg/dl) Bilirubin, 1+ Small POWERCHART POCT, U Glucose, POCT, Negative POWERCHART U Specimen (Source) Anatomical Collection Method Collection Time Re ceived Time Location / / Volume Laterality 10/13/2016 12:46 PM ADVANCE AGENT Cassie Melissa M.D. LAB POCT ORDERABLES - DEVICE Performing Organization Address City/[facility]/ZIP Code Phon e Number POWERCHART (ABNORMAL) CBC without Differential (10/13/2016 11:21 AM ADVANCE AGENT) Analysis Performed At [facility] Time Signature Leukocytes 10.7 (H) 3.4 - 10.5 POWERCHART X109L Erythrocytes 4.34 3.90 - POWERCHART 5.03 [id number] Hemoglobin 12.7 12.0 - POWERCHART 15.5 GDL Hematocrit 37.3 34.9 - POWERCHART 44.5 MCV 85.9 82.0 - POWERCHART 98.0 FL HX RDW 14.2 11.9 - POWERCHART 15.5 Platelet Count 250 150 - 450 POWERCHART X109L Specimen (Source) Anatomical Collection Method Collection Time Re ceived Time Location / / Volume Laterality Blood 10/13/2016 11:21 AM ADVANCE AGENT Cassie Melissa M.D. LAB BLOOD ADD-ON Performing Organization Address City/State/ZIP Code Phon e Number POWERCHART (ABNORMAL) Creatinine with eGFR (10/13/2016 11:21 AM ADVANCE AGENT) Analysis Performed At [facility] Time Signature Creatinine 0.49 (L) 0.60 - POWERCHART 1.10 MGDL HXeGFR (MDRD) >60 >=60 POWERCHART [id number] eGFR >60 >=60 POWERCHART Black/ [id number] [place]er Specimen (Source) Anatomical Collection Method Collection Time Re ceived Time Location / / Volume Laterality Blood 10/13/2016 11:21 AM ADVANCE AGENT Cassie Melissa M.D. LAB BLOOD ADD-ON Performing Organization Address City/State/ZIP Code Phon e Number POWERCHART BUN (Blood Urea Nitrogen) (10/13/2016 11:21 AM ADVANCE AGENT) P athologist Signature BUN (Blood Urea 6 6 - 21 MGDL POWERCHART Nitrogen), S Specimen (Source) Anatomical Collection Method Collection Time Re ceived Time Location / / Volume Laterality Blood 10/13/2016 11:21 AM ADVANCE AGENT Cassie Melissa M.D. LAB BLOOD ADD-ON Performing Organization Address City/State/ZIP Code Phon e Number POWERCHART ALT (Alanine Aminotransferase) (10/13/2016 11:21 AM ADVANCE AGENT) P athologist Signature Alanine 7 7 - 45 POWERCHART Amniotransferas UNITL e, LD Specimen (Source) Anatomical Collection Method Collection Time Re ceived Time Location / / Volume Laterality Blood 10/13/2016 11:21 AM ADVANCE AGENT Cassie Melissa M.D. LAB BLOOD ADD-ON Performing Organization Address City/State/ZIP Code Phon e Number POWERCHART AST (Aspartate Aminotransferase) (10/13/2016 11:21 AM ADVANCE AGENT) Patholo gist Method Time Signature Aspartate 14 8 - 43 POWERCHART Aminotransferase UNITL (AST), S Specimen (Source) Anatomical Collection Method Collection Time Re ceived Time Location / / Volume Laterality Blood 10/13/2016 11:21 AM ADVANCE AGENT Cassie Melissa M.D. LAB BLOOD ADD-ON Performing Organization Address City/[facility] Code Phon e Number POWERCHART Dipstick, POCT, Urine (nursing) (10/13/2016 11:06 AM ADVANCE AGENT) Analysis Performed At Patho logist Time Signature Color Yellow POWERCHART Appearance Clear POWERCHART Protein, POCT, Trace POWERCHART U Glucose, POCT, Negative POWERCHART U Specimen (Source) Anatomical Collection Method Collection Time Re ceived Time Location / / Volume Laterality 10/13/2016 11:06 AM ADVANCE AGENT Authorizing Provider Result Lupis Melissa M.D. LAB POCT ORDERABLES - DEVICE Performing Organization Address City/[facility] Code Phon e Number POWERCHART documented in this encounter Visit Diagnoses Not on filedocumented in this encounter Additional Health Concerns Assessment Noted Time PHQ-9 Depression Total Score: 13 06/14/2015 3:56 PM CD T documented as of this encounter
--- OUTSIDE RECORDS SUMMARY | 2022-07-24 15:15 | XMS_ITS | Encounter Summary ---
:1985 Author Organization [facility] Address [address] [place] [address] Care Team Providers Name Role Phone Unavailable Primary Care Provider Unavailable Encounter Details Date Type Department Care Team Description 09/21/2016 Hospital Encounter [facility]X [facility] Nahun Tejeda M.D. [address] [place], [place] [phone] (Wo rk) Social History [...] 03/29/2020 relatives? How often do you attend scientologist or pentecostalism Never 07/04/2019 services? 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 [address] [phone] (Wo rk) Scheduled Procedures Name Priority Associated Diagnoses Date/Time LIFT THIGH Excessive And Redundant Skin And Subcutaneous Tissue documented as of this encounter Procedures Procedure Name Priority Date/Time Associated Comments Diagnosis GLUCOSE, GESTATIONAL Routine 09/21/2016 9:42 AM R esults for this 1HR, S BEEF SPECIALIST procedure are i n the results section. HEMOGLOBIN, B Routine 09/21/2016 9:42 AM Results for this BEEF SPECIALIST procedure are i n the results section. documented in this encounter Results (ABNORMAL) Hemoglobin (09/21/2016 9:42 AM BEEF SPECIALIST) P athologist Signature Hemoglobin 11.7 (L) 12.0 - 15.5 POWERCHART GDL Specimen (Source) Anatomical Collection Method Collection Time Re ceived Time Location / / Volume Laterality Blood 09/21/2016 9:42 AM BEEF SPECIALIST Nahun Tejeda M.D. LAB BLOOD ADD-ON Performing Organization Address City/[facility]/ZIP Code Phon e Number POWERCHART (ABNORMAL) Glucose, Gestational 1HR (09/21/2016 9:42 AM BEEF SPECIALIST) P athologist Signature HXGlucose 1 Hr 162 (H) 70 - 139 POWERCHART OB MGDL Specimen (Source) Anatomical Collection Method Collection Time Re ceived Time Location / / Volume Laterality Blood 09/21/2016 9:42 AM BEEF SPECIALIST Nahun Tejeda M.D. LAB BLOOD ADD-ON Performing Organization Address City/State/ZIP Code Phon e Number POWERCHART documented in this encounter Visit Diagnoses Not on filedocumented in this encounter Additional Health Concerns Assessment Noted Time PHQ-9 Depression Total Score: 13 06/14/2015 3:56 PM CD T documented as of this encounter
--- OUTSIDE RECORDS SUMMARY | 2022-07-24 15:15 | XMS_ITS | Encounter Summary ---
:1985 Author Organization [facility] Address [address] [place] [address] Care Team Providers Name Role Phone Unavailable Primary Care Provider Unavailable Encounter Details Date Type Department Care Team Description 11/20/2016 Hospital Encounter HX [facility] Ranjit Lee M.D. [address], [place] [phone] (Wo rk) Social History [...] How often do you attend taoist or mormon Never 07/04/2019 services? 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 - 11/20/2016 9:51 AM CST OBGYN-SV CHIEF COMPLAINT/REASON FOR VISIT OB followup. HISTORY OF PRESENT ILLNESS Nancy is a 31-year-old 5, para 3-0-1-3 female at 36+6 weeks by last menstrual period consistent with 7+1 week ultrasound who presents for OB followup today. She continues to have occasional contractions and has been in to Labor and Delivery on an off during the with contractions. She denies any vaginal bleeding or leakage of fluid. She reports that the baby is not moving as well today as it usually does. She did not bring her sugar log with her today. She is very uncomfortable with the and is anxious to have her section. She does report that she had some vision changes last night and a left-sided headache when she woke up this morning that improved with Tylenol. She denies any upper abdominal pain or increasing edema. MEDICATIONS See medication list updated in the EMR today. ALLERGIES See allergy list updated in the EMR today. SYSTEMS REVIEW GENERAL: No fevers, chills, fatigue, unintentional weight loss or weight gain. HEENT: Positive for changes in vision and nasal congestion. No changes in hearing, no sore throat. CARDIOVASCULAR: No chest pain, irregular heartbeat or racing heart. RESPIRATORY: No shortness of breath, cough or wheeze. GAS TROINTESTINAL: Positive for nausea, vomiting and constipation related to . GENITOURINARY: Positive for leaking urine related to . No pain or burning with urination, no irregular vaginal bleeding, heavy periods, painful periods, abnormal vaginal discharge, leaking stool or gas. SKIN: No rashes or skin lesions. BREASTS: Positive for discharge from the nipples related to . No masses or lumps. NEUROLOGIC: Positive for [...] A 31-year-old 5, para 3-0-1-3 female at 36+6 weeks by last menstrual period consistent with 7+1 week ultrasound who presents for OB followup today. 1. care: No specific issues were addressed today. 2. contractions: She has a history of contractions and has been seen in the Center for this on multiple occasions and has not had cervical change. She continues to have occasionalcontractions. 3. Gestational diabetes mellitus A1: She did not bring her sugar log with her today but in the past her fasting sugars have almost all been in the normal range. I will continue to review her sugars andshe was encouraged to bring her log with her to her next visit. 4. History of prior section x3: She is on the schedule for planned repeat section on 12/05/2016. 5. Major depressive disorder: She is not currently on medication for this. Her mood is stable at this time. I will continue to monitor this as the progresses and if it worsens we will discusstreatment options. 6. Herpes simplex virus 2: We have discussed that prophylaxis is recommended at 36 weeks due to the possibility of vaginal delivery though that is not our plan. She reports that she has not had an outbreak in the last several years and does not really want to be on this and we agree that her risk of vaginal delivery is quite low and her risk of an outbreak is quite low. At this time I have offered togive her prescription for prophylaxis and she declines this based on her understanding of the risks and benefits. 7. Size greater than dates: Ultrasound performed on 01/25/2015 shows growth at the 75th percentile. Her fundal height is stable today. However if her fundal height continues to increase out of proportion to her gestational age I will repeat growth ultrasound closer to delivery. 8. History of preeclampsia: She had preeclampsia with her 4th and was treated with magnesium sulfate. Due to this, baseline HELLP labs and a 24-hour urine were ordered. These were normal. Herblood pressures in the normal range today. She did have 1 elevated blood pressure in the 140s systolic on Labor and Delivery at one of her visits but has not had a second blood pressure out of the normal range. We will continue to monitor her blood pressures closely and she is aware of symptoms of preeclampsia and she will let me know if she has any of these. 9. Decreased movement: NST was performed today and was reactive. 10. Followup: Four days. Cassie Melissa M.D./pepe Electronically Signed By: CASSIE MELISSA MD On: 12/05/2016 08:48 PM Source: [facility] MHSDOLBEYNONRADSYS Document Id: [id number] M CONDITIONER FILLING documented in this encounter Procedure Notes Tonya العلي L.P.NRodrigo - 11/20/2016 10:38 AM CST Urine Dipstick Urine Dipstick Entered On: 11/20/2016 10:38 STEAM CONDITIONER FILLING Performed On: 11/20/2016 10:38 STEAM CONDITIONER FILLING by TONYA العلي LPN Urine Dipstick UA Color POC : Yellow UA Appear POC : Clear UA Protein POC : Trace UA Glucose POC : Negative TONYA العلي LPN - 11/20/2016 10:38 STEAM CONDITIONER FILLING Source: [facility] POWERCHART Document Id: [id number] STEAM CONDITIONER FILLING!6 M CONDITIONER FILLING Cassie Melissa M.D. - 11/20/2016 12:00 AM CST 2RPT NONSTRESS TEST PROCEDURE NOTE INDICATIONS A 31-year-old 5, para 3-0-1-3 female at 36 + 6 weeks by last menstrual period, consistent with 7 + 1 week ultrasound, who presented for OB followup today and reported decreased movement. Due to this, NST was recommended. PROCEDURE heart tones: Baseline 115, moderate variability, reactive, no decelerations. Tocometer: Two contractions in 55 minutes on the monitor. IMPRESSION Reactive nonstress test (NST). Cassie Melissa M.D./israel Electronically Signed By: CASSIE MELISSA MD On: 12/05/2016 08:41 PM Source: [facility] MHSDOLBEYNONRADSYS Document Id: [id number] M CONDITIONER FILLING documented in this encounter Nursing Notes Tonya العلي LRodrigoP.N. - 11/20/2016 10:07 AM CST Zika At this time, there are 3 screening questions: 1. Have you or your partner traveled outside of [place] up to 6 months prior to this ? No- Denies 2. If so, where specifically have you or your partner traveled? Country, state? NA 3. If you or your partner have traveled to [place] since April 19, 2016; where in [place] did you travel? No- Denies Electronically Signed By: TONYA العلي LPN On: 11/20/2016 10:07 AM Source: [facility] POWERCHART Document Id: [id number] M CONDITIONER FILLING documented in this encounter Miscellaneous Notes Miscellaneous - Cassie Melissa M.D. - 11/24/2016 5:40 PM CST Ambulatory Patient Summary [facility] [address] [place] [id number] Visit Information Name: NANCY PHILLIPS [facility] Number: [id number] Current Date: 11/24/2016 17:40:50 Physicians Attending Provider: CASSIE MELISSA MD Primary [...] Signed By: CASSIE MELISSA MD Signed On:24-NOV-2016 17:40:47 Your Allergies & Intolerances Substance Reaction Symptoms [...] Date Time Location Provider 12/01/2016 13:00 [facility] MANAGER FINE DINING Cassie Melissa MD [facility]2016 [facility] Attention: Contact your local [...] online form. Youll be asked for your [facility] number which you can find at the top of this document. Your Goals/Additional instructions: Source: [facility] POWERCHART Document Id: [id number] EL Hollis - Cassie Melissa M.D. - 11/24/2016 5:40 PM CST Ambulatory Discharge Medication List [address] [id number] Visit Information Name: NANCY PHILLIPS [facility] Number: [id number] Current Date: 11/24/2016 17:40:50 Attending Provider: CASISE MELISSA MD Primary Care Provider: MAILE ZARATE [...] Signed By: CASSIE MELISSA MD Signed On:24-NOV-2016 17:40:47 Additional Information: Source: [facility] POWERCHART Document Id: [id number] EL Hollis - Cassie Melisas M.D. - 11/22/2016 5:15 PM CST Results Notification Document Contains Addenda Addendum by TONYA العلي LPN on November 27, 2016 10:46:35 STEAM CONDITIONER FILLING added to chart. From: CASSIE MELISSA MD To: TONYA العلي LPN; Sent: 11/22/2016 17:15:02 STEAM CONDITIONER FILLING ! Show up: 11/22/2016 17:15:02 STEAM CONDITIONER FILLING Subject: Results Notification Actions: Note to Nurse Reminder Comments: Please add result to chart. Results: Date Result Type Ind Result Name MBO Review Strep B by PCR Source: [facility] BadSeed Document Id: [id number] Electronically signed by Conversion, [facility] Driver Operator [id number] at 04/17/2017 3:49 AM CDT Miscellaneous - Tonya العلي L.PRodrigoNRodrigo - 11/20/2016 10:34 AM CST [place] [employer] Documentation [place] [employer] Documentation Entered On: 11/20/2016 10:34 STEAM CONDITIONER FILLING Performed On: 11/20/2016 10:34 STEAM CONDITIONER FILLING by TONYA العلي LPN [place] [employer] Documentation Exam/Procedure Performed : Cervical check/ GBS culture CD [place] [employer] Present : Yes CD [place] [employer] Name : Susana PRADEEP العلي Present in Room During Exam/Procedure : Daughter TONYA العلي LPN - 11/20/2016 10:34 STEAM CONDITIONER FILLING Source: [facility] BadSeed Document Id: [id number] STEAM CONDITIONER FILLING!6 M CONDITIONER FILLING Miscellaneous - Tonya العلي L.P.NRodrigo - 11/20/2016 10:05 AM CST Adult Sap Basis Consultant Intake/History Adult Sap Basis Consultant Intake/History Entered On: 11/20/2016 10:07 STEAM CONDITIONER FILLING Performed On: 11/20/2016 10:05 STEAM CONDITIONER FILLING by TONYA العلي LPN Intake Chief Complaint : OBFU 36 + 6 weeks LMP Date : 03/07/2016 Systolic Blood Pressure : 132 mmHg Diastolic Blood Pressure : 88 mmHg NIBP Mean : 103 mmHg BP Location : Left upper extremity Blood Pressure Cuff Size : Large Height : 164 cm(Converted to: 5 ft 5 inch(es), 65 inch(es)) Actual Weight : 126.3 kg(Converted to: 278 lb 7 oz) Weight Source : Standing scale Dosing Weight Clinic : 126.3 kg Clinic BSA : 2.4 Body Mass Index : 46.96 kg/m2 ELIANETONYA Nadia FERNÁNDEZ - 11/20/2016 10:05 STEAM CONDITIONER FILLING General Info Languages : Setswana Is Patient Female and 13-50 no hysterectomy : Yes Status : Confirmed positive Are you ? : No TONYA العلي LPN - 11/20/2016 10:05 STEAM CONDITIONER FILLING Subjective Pain Symptoms : No TONYA العلي LPN - 11/20/2016 10:05 STEAM CONDITIONER FILLING Dependent Habits Exposure to Tobacco Smoke : Other: never Smoking Status : Never smoker Tobacco 2A : No Tobacco Use/Currently Using : No Tobacco Use/Last 30 Days : No Tobacco Use/Last 12 months : No TONYA العلي LPN - 11/20/2016 10:05 STEAM CONDITIONER FILLING Caffeine Use Grid Caffeine Use : Current Type : Soft drinks Frequency : Daily Amount : regular 1-2 cans daily TONYA العلي LPN - 11/20/2016 10:05 STEAM CONDITIONER FILLING [facility] Document Id: [id number] STEAM CONDITIONER FILLING!35 M CONDITIONER FILLING documented in this encounter Plan of Treatment Upcoming Encounters Date Type Specialty Care Team Description 08/17/2022 Procedure visit Neurology Marina Winter M.D., M.P.H. [address] [phone] (Wo rk) Scheduled Procedures Name Priority Associated Diagnoses Date/Time LIFT THIGH Excessive And Redundant Skin And Subcutaneous Tissue documented as of this encounter Procedures Procedure Name Priority Date/Time Associated Comments Diagnosis HXSTREP GROUP B BY Routine 11/20/2016 12:52 PM Re sults for this PCR STEAM CONDITIONER FILLING procedure are i n the results section. DIPSTICK, POCT, U Routine 11/20/2016 10:38 AM Res ults for this (NURSING) INTERFACED STEAM CONDITIONER FILLING procedu re are in the results section. documented in this encounter Results HXSTREP GROUP B BY PCR (11/20/2016 12:52 PM STEAM CONDITIONER FILLING) Patholo gist Method Time Signature HXStrep Group POWERCHART B by PCR HXFinal Negative for POWERCHART Group B Strep by PCR. Specimen (Source) Anatomical Collection Method Collection Time Re ceived Time Location / / Volume Laterality Vaginal/Rectum 11/20/2016 12:52 PM STEAM CONDITIONER FILLING Cassie Melissa M.D. LAB HISTORICAL ORDERS Performing Organization Address [facility] Phon e Number POWERCHART Dipstick, POCT, Urine (nursing) (11/20/2016 10:38 AM STEAM CONDITIONER FILLING) Analysis Performed At [facility] Time Signature Color Yellow POWERCHART Appearance Clear POWERCHART Protein, POCT, Trace POWERCHART U Glucose, POCT, Negative POWERCHART U Specimen (Source) Anatomical Collection Method Collection Time Re ceived Time Location / / Volume Laterality 11/20/2016 10:38 AM STEAM CONDITIONER FILLING Cassie Melissa M.D. LAB POCT ORDERABLES - DEVICE Performing Organization Address [facility] Phon e Number POWERCHART documented in this encounter Visit Diagnoses Not on filedocumented in this encounter Additional Health Concerns Assessment Noted Time PHQ-9 Depression Total Score: 13 06/14/2015 3:56 PM CD T documented as of this encounter
--- OUTSIDE RECORDS SUMMARY | 2022-07-24 15:15 | XMS_ITS | Encounter Summary ---
:1985 Author Organization [facility] Address [address] [place] [address] Care Team Providers Name Role Phone Unavailable Primary Care Provider Unavailable Encounter Details Date Type Department Care Team Description 09/05/2016 Hospital Encounter [facility]X [facility] Nancy Willson, ÁNGEL, C.N.P. [address] [place], [place] [phone] (Wo rk) Social History [...] How often do you attend orthodox or moravian Never 07/04/2019 services? 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 - 09/05/2016 11:03 AM CDT Ambulatory Patient Summary [facility] [address] [place], [place] [id number] Visit Information Name: NANCY PHILLIPS [facility] Number: [id number] Current Date: 09/05/2016 11:03:15 Physicians Attending Provider: NANCY KEENAN APRN, CNP Primary Care Provider: MAILE ZARATE MD NANCY [...] the Following Medications: Medication list as of 09-05-16 11:03 Attention: If you have any medications at home that are not on this list, DO NOT take them until youcontact your provider for clarification. Give a copy of your medication list to your primary care provider. Update your medication list any time medications or doses are changed and carry your medication list at all times in case of emergency. Electronically Signed By: NANCY KEENAN APRN, CNP Signed On:05-SEP-2016 11:03:13 Your Allergies & Intolerances Substance Reaction Symptoms [...] Your Upcoming Appointments Date Time Location Provider 09/21/2016 08:40 [facility] Lab [facility] Lab 09/21/2016 09:15 [facility] CASE THERAPIST Nahun Tejeda MD 10/05/2016 13:15 [facility] CASE THERAPIST Ileana RED, Nahun Regalado 10/19/2016 13:15 [facility] CASE THERAPIST Ileana RED, Nahun Regalado 11/02/2016 13:15 [facility] CASE THERAPIST Ileana RED, Nahun Regalado 11/16/2016 13:15 [facility] CASE THERAPIST Ileana RED, Nahun Regalado 11/23/2016 13:15 [facility] CASE THERAPIST Ileana RED, Nahun Regalado 12/15/2016 11:15 [facility] CASE THERAPIST Ayanna Xie NP 01/12/2017 13:15 [facility] CASE THERAPIST Nahun Tejeda MD Attention: Contact your local Clinic [...] if you dont have one. Go to [email or web address] and click on Create Your Account. Then, follow the directions to complete the online form. Youll be asked for your [facility] number which you can find at the top of this document. Your Goals/Additional instructions: Source: [facility] POWERCHART Document Id: [id number] Miscellaneous - Nancy Keenan APRN, C.N.P. - 09/05/2016 11:03 AM CDT Ambulatory Discharge Medication List [facility] [address] [place] [id number] Visit Information Name: NANCY PHILLIPS [facility] Number: [id number] Current Date: 09/05/2016 11:03:15 Attending Provider: NANCY KEENAN APRN DIRECTOR TREASURER Primary Care Provider: MAILE ZARATE MD NANCY [...] the Following Medications: Medication list as of 09-05-16 11:03 Attention: If you have any medications at home that are not on this list, DO NOT take them until youcontact your provider for clarification. Give a copy of your medication list to your primary care provider. Update your medication list any time medications or doses are changed and carry your medication list at all times in case of emergency. Electronically Signed By: NANCY KEENAN APRN [facility] Signed On:05-SEP-2016 11:03:13 Additional Information: Source: [facility] POWERCHART Document Id: [id number] Miscellaneous - Lia Mccarty LRodrigoPRodrigoN. - 09/05/2016 10:09 AM CDT Adult Microfabrication Engineer Manager Intake/History Adult Microfabrication Engineer Manager Intake/History Entered On: 09/05/2016 10:13 CDT Performed On: 09/05/2016 10:09 CDT by LIA MCCARTY TALENT DEVELOPMENT ANALYST Intake Chief Complaint : ob check in labor and delivery stated bp was elevated and was told there was bloodin her urine. LMP Date : 03-07-2016 Ambulatory Intake Additional Information : zika (Comment: Zika screening questions1.) Have you or your partner traveled outside of [place] up to 6 monthsprior to this ? yes2.) If so, where specifically have you or your partner traveled (Country, State)?[place]3.) If you or your partner have traveled to [place] since April? No Where in [place] did you travel? _ [LIA MCCARTY LPN - 09/05/2016 10:09 CDT] ) Systolic Blood Pressure : 120 mmHg Diastolic Blood Pressure : 78 mmHg NIBP Mean : 92 mmHg Height : 164 cm(Converted to: 5 ft 5 inch(es), 65 inch(es)) Actual Weight : 130.5 kg(Converted to: 287 lb 11 oz) Dosing Weight Clinic : 130.5 kg Clinic BSA : 2.44 Body Mass Index : 48.52 kg/m2 LIA MCCARTY LPN - 09/05/2016 10:09 CDT General Info Information Given By : Patient Languages : Irish Is Patient Female and 13-50 no hysterectomy : Yes Status : Confirmed positive Are you ? : No LIA MCCARTY LPN - 09/05/2016 10:09 CDT Subjective Pain Symptoms : Yes LIA MCCARTY LPN - 09/05/2016 10:09 CDT Pain Scale Pain Scale Verbal 0-10 : Open LIA MCCARTY LPN - 09/05/2016 10:09 CDT Pain Pain Assessment Grid Pain 1 Location : Other: pelvic pain and pressure. When walks feels like a stabbing pain and something is going to fall out. LIA MCCARTY LPN - 09/05/2016 10:09 CDT Dependent Habits Exposure to Tobacco Smoke : Other: never Smoking Status : Never smoker Tobacco 2A : No Tobacco Use/Currently Using : No Tobacco Use/Last 30 Days : No Tobacco Use/Last 12 months : No LIA MCCARTY LPN - 09/05/2016 10:09 CDT Caffeine Use Grid Caffeine Use : Current Type : Soft drinks Frequency : Daily Amount : regular 1-2 cans daily LIA MCCARTY LPN - 09/05/2016 10:09 CDT Source: [facility] POWERCHART Document Id: [id number] CDT!40 documented in this encounter Plan of Treatment Upcoming Encounters Date Type Specialty Care Team Description 08/17/2022 Procedure visit Neurology Marina Winter M.D., M.P.H. [address] [phone] (Wo rk) Scheduled Procedures Name Priority Associated Diagnoses Date/Time LIFT THIGH Excessive And Redundant Skin And Subcutaneous Tissue documented as of this encounter Visit Diagnoses Not on filedocumented in this encounter Additional Health Concerns Assessment Noted Time PHQ-9 Depression Total Score: 13 06/14/2015 3:56 PM CD T documented as of this encounter
--- OUTSIDE RECORDS SUMMARY | 2022-07-24 15:15 | XMS_ITS | Encounter Summary ---
:1985 Author Organization [facility] Address [address] [place] [address] Care Team Providers Name Role Phone Unavailable Primary Care Provider Unavailable Encounter Details Date Type Department Care Team Description 10/22/2016 Hospital Encounter HX NO MAPPING Sandeep Hathaway [...] How often do you attend anabaptism or advent Never 07/04/2019 services? 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 [address] [phone] (Wo rk) Scheduled Procedures Name Priority Associated Diagnoses Date/Time LIFT THIGH Excessive And Redundant Skin And Subcutaneous Tissue documented as of this encounter Visit Diagnoses Not on filedocumented in this encounter Additional Health Concerns Assessment Noted Time PHQ-9 Depression Total Score: 13 06/14/2015 3:56 PM CD T documented as of this encounter
--- OUTSIDE RECORDS SUMMARY | 2022-07-24 15:15 | XMS_ITS | Encounter Summary ---
:1985 Author Organization [facility] Address [address] [place] [address] Care Team Providers Name Role Phone Unavailable Primary Care Provider Unavailable Encounter Details Date Type Department Care Team Description 06/03/2016 Hospital Encounter HX NO MAPPING Mamie Griffith P.A. Social History Tobacco Use Types Packs/Day Years [...] How often do you attend buddhism or amish Never 07/04/2019 services? 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 [address] [phone] (Wo rk) Scheduled Procedures Name Priority Associated Diagnoses Date/Time LIFT THIGH Excessive And Redundant Skin And Subcutaneous Tissue documented as of this encounter Visit Diagnoses Not on filedocumented in this encounter Additional Health Concerns Assessment Noted Time PHQ-9 Depression Total Score: 13 06/14/2015 3:56 PM CD T documented as of this encounter
--- OUTSIDE RECORDS SUMMARY | 2022-07-24 15:15 | XMS_ITS | Encounter Summary ---
:1985 Author Organization [facility] Address [address] [place] [address] Care Team Providers Name Role Phone Unavailable Primary Care Provider Unavailable Encounter Details Date Type Department Care Team Description 11/20/2016 Hospital Encounter HX NO MAPPING Eva Booth M.D. [address] [place], [place] [phone] (Wo rk) Social History [...] How often do you attend confucianism or pentecostal Never 07/04/2019 services? 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 Coded By: VIMAL ROME Date Saved: 11/29/2016 12:25 pm Source: [facility] POWERLesConcierges Document Id: [id number] documented in this encounter Plan of Treatment Upcoming Encounters Date Type Specialty Care Team Description 08/17/2022 Procedure visit Neurology Marina Winter M.D., M.P.H. [address] [phone] (Wo rk) Scheduled Procedures Name Priority Associated Diagnoses Date/Time LIFT THIGH Excessive And Redundant Skin And Subcutaneous Tissue documented as of this encounter Visit Diagnoses Not on filedocumented in this encounter Additional Health Concerns Assessment Noted Time PHQ-9 Depression Total Score: 13 06/14/2015 3:56 PM CD T documented as of this encounter
--- OUTSIDE RECORDS SUMMARY | 2022-07-24 15:15 | XMS_ITS | Encounter Summary ---
:1985 Author Organization [facility] Address [address] [place] [address] Care Team Providers Name Role Phone Unavailable Primary Care Provider Unavailable Encounter Details Date Type Department Care Team Description 04/27/2016 Hospital Encounter HX [facility] Promise Rouse M.D. [address] [place], [place] [phone] (Wo rk) Social History [...] How often do you attend scientologist or bahai Never 07/04/2019 services? 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 [address] [place] [phone] (Wo rk) Scheduled Procedures Name Priority Associated Diagnoses Date/Time LIFT THIGH Excessive And Redundant Skin And Subcutaneous Tissue documented as of this encounter Procedures Procedure Name Priority Date/Time Associated Diagnosis Comme nts US OB TRANSVAGINAL Routine 04/27/2016 2:29 PM Res ults for this CDT procedure are i n the results section. documented in this encounter Results US OB Transvaginal (04/27/2016 2:29 PM CDT) Anatomical Region Laterality Modality Ultrasound Specimen (Source) Anatomical Collection Method Collection Time Re ceived Time Location / / Volume Laterality 04/27/2016 2:29 PM CDT Addenda Addendum by Provider, Ella Moreno 04/27/2016 2:29 PM CDT RAD^^^OW US OB Transvaginal 04/27/2016 14:29:28 Impressions 04/27/2016 3:46 PM CDT 1. Single Viable Intrauterine with NIMA of ??12/16/2016, consistent with menstrual dates. In general, it is reasonable to use the sonographically derived NIMA if it differs from that calculated using the last menstrual period (LMP) by more than seven days in the fir st trimester. [facility] in [place] CYCLING INSTRUCTOR Dept. [phone] Narrative 04/27/2016 3:46 PM CDT EXAM: US OB Transvaginal INDICATION: Dates, viability REFERRING PHYSICIAN: Dr. Tejeda COMPARISON: None LMP: 03/07/2016 NIMA by LMP: 12/12/2016 : 5 PARA: 3 NUMBER: One CARDIAC ACTIVITY: Yes HEART RATE: 140 beats per minute. GESTATIONAL SAC = N/A ??cm = N/A weeks a nd N/A days. Gestational sac is measured only if tonto apache n rump length (CRL) is not able to be determined. Multiple measurements of the CRL reveal an average ultrasound age of 6 weeks and 5 days. ??See 'IMPRESSION' b elow for ultrasound calculation of Estimated Date of Deliver y (NIMA). RIGHT OVARY: ??Unable to adequately imag e LEFT OVARY: ??Unable to adequately image UTERUS: Appears within normal limits. UTERINE POSITION: Anteverted. CUL DE SAC: Normal. ADNEXA: Visually normal, no adnexal mass es detected. PRINCIPAL ASSOCIATE: Saige Clifford RDMS. Procedure Note Dona Villa M.D. / Provider, Roshni armstrong M.D. - 03/10/2017 EXAM: US OB Transvaginal INDICATION: Dates, viability REFERRING PHYSICIAN: Dr. Tejeda COMPARISON: None LMP: 03/07/2016 NIMA by LMP: 12/12/2016 : 5 PARA: 3 NUMBER: One CARDIAC ACTIVITY: Yes HEART RATE: 140 beats per minute. GESTATIONAL SAC = N/A cm = N/A weeks and N/A days. Gestational sac is measured only if tonto apache n rump length (CRL) is not able to be determined. Multiple measurements of the CRL reveal an average ultrasound age of 6 weeks and 5 days. See 'IMPRESSION' bel ow for ultrasound calculation of Estimated Date of Deliver y (INMA). RIGHT OVARY: Unable to adequately image LEFT OVARY: Unable to adequately image UTERUS: Appears within normal limits. UTERINE POSITION: Anteverted. CUL DE SAC: Normal. ADNEXA: Visually normal, no adnexal mass es detected. PRINCIPAL ASSOCIATE: Saige Clifford RDMS. IMPRESSION: 1. Single Viable Intrauterine with NIMA of 12/16/2016, consistent with menstrual dates. In general, it is reasonable to use the sonographically derived NIMA if it differs from that calculated using the last menstrual period (LMP) by more than seven days in the fir st trimester. [facility] in [place] CYCLING INSTRUCTOR Dept. [phone] Saige Nick R.V.T., BrianneSRodrigo IMG OB US PROCEDUR ES documented in this encounter Visit Diagnoses Not on filedocumented in this encounter Additional Health Concerns Assessment Noted Time PHQ-9 Depression Total Score: 13 06/14/2015 3:56 PM CD T documented as of this encounter
--- OUTSIDE RECORDS SUMMARY | 2022-07-24 15:15 | XMS_ITS | Encounter Summary ---
:1985 Author Organization [facility] Address [address] [place] [address] Care Team Providers Name Role Phone Unavailable Primary Care Provider Unavailable Encounter Details Date Type Department Care Team Description 05/25/2016 Hospital Encounter HX [facility] Promise Rouse M.D. [address] [place], [place] [phone] (Wo rk) Social History [...] 03/29/2020 relatives? How often do you attend yazidi or moravian Never 07/04/2019 services? 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 - 05/25/2016 2:40 PM CDT CHIEF COMPLAINT: care HISTORY OF PRESENT ILLNESS: This patient presents for a visit in the first trimester. She has no unusual complaints today and is not experiencing severe hyperemesis nor vaginal bleeding. She is tolerating PO well, and is taking vitamins. She is experiencing the typical symptoms of nausea, breast tenderness, and fatigue. CURRENT MEDICATIONS and ALLERGIES have been reviewed [...] up visit is scheduled in four weeks. Most of the early symptoms of pregnancyincluding nausea, breast tenderness, and fatigue are being moderated at this stage and should improve over the next month. The risk of miscarriage is greatly decreased after 12 weeks gestation. Shar Del Angel CC: Labor and Delivery Electronically Signed By: SHAR TEJEDA MD On: 05/25/2016 02:40 PM Source: [facility] POWERCHART Document Id: [id number] documented in this encounter Miscellaneous Notes Miscellaneous - Shar Tejeda M.D. - 05/25/2016 2:39 PM CDT Ambulatory Discharge Medication List [address] [id number] Visit Information Name: ALANJOSEPHINENANCY FAE [facility] Number: [id number] Visit Date: 05/25/2016 14:39:14 Attending Provider: SHAR TEJEDA MD Primary Care Provider: MALIE ZARATE MD NANCY PHILLIPS ELIZABETH has been [...] the Following Medications: Medication list as of 05-25-16 14:39 Attention: If you have any medications at [...] Electronically Signed By: SHAR TEJEDA MD Signed On:25-MAY-2016 14:39:12 Additional Information: Source: [facility] POWERCHART Document Id: [id number] Miscellaneous - Shar Tejeda M.D. - 05/25/2016 2:39 PM CDT Ambulatory Patient Summary [address] [id number] Visit Information Name: NANCY PHILLIPS [facility] Number: [id number] Current Date: 05/25/2016 14:39:15 Physicians Attending Provider: SHAR TEJEDA MD Primary Care Provider: MAILE ZARATE MD JOSEPHINE PHILLIPSSSICA ELIZABETH has been given the following list [...] the Following Medications: Medication list as of 05-25-16 14:39 Attention: If you have any medications at [...] Electronically Signed By: SHAR TEJEDA MD Signed On:25-MAY-2016 14:39:12 Your Allergies & Intolerances Substance Reaction Symptoms [...] Your Upcoming Appointments Date Time Location Provider 05/29/2016 12:30 [facility] [address] 06/22/2016 15:00 [facility] MEDICAL ACCOUNTANT Shar Tejeda MD 07/27/2016 13:00 OWOC MEDICAL ACCOUNTANT [facility] Certified Indoor Environmentalist Ultrasound Room 3 07/27/2016 14:00 [facility] MEDICAL ACCOUNTANT Shar Tejeda MD 08/24/2016 13:30 [facility] MEDICAL ACCOUNTANT Shar Tejeda MD Attention: Contact your local [...] if you dont have one. Go to [email or web address] and click on Create Your Account. Then, follow the directions to complete the online form. Youll be asked for your [facility] number which you can find at the top of this document. Your Goals/Additional instructions: Source: [facility] Document Id: [id number] Miscellaneous - Laverne Conti L.P.NRodrigo - 05/25/2016 2:10 PM CDT Adult Retail Salesworker Intake/History Adult Retail Salesworker Intake/History Entered On: 05/25/2016 14:12 CDT Performed On: 05/25/2016 14:10 CDT by LAVERNE CONTI LPN Intake Chief Complaint : 11 2/7 wk ob check Systolic Blood Pressure : 110 mmHg Diastolic Blood Pressure : 68 mmHg NIBP Mean : 82 mmHg BP Location : Left upper extremity Blood Pressure Cuff Size : Large Height : 164 cm(Converted to: 5 ft 5 inch(es), 65 inch(es)) Actual Weight : 137.2 kg(Converted to: 302 lb 8 oz) Dosing Weight Clinic : 137.2 kg Clinic BSA : 2.5 Body Mass Index : 51.01 kg/m2 LAVERNE CONTI LPN - 05/25/2016 14:10 CDT General Info Languages : Citizen Of [place] Is Patient Female and 13-50 no hysterectomy : No LAVERNE CONTI LPN - 05/25/2016 14:10 CDT Subjective Pain Symptoms : No LAVERNE CONTI LPN - 05/25/2016 14:10 CDT Dependent Habits Exposure to Tobacco Smoke : Other: never Smoking Status : Never smoker Tobacco 2A : No Tobacco Use/Currently Using : No Tobacco Use/Last 30 Days : No Tobacco Use/Last 12 months : No LAVERNE CONTI LPN - 05/25/2016 14:10 CDT Caffeine Use Grid Caffeine Use : Current Type : Soft drinks Frequency : Daily Amount : regular 1-2 cans daily LAVERNE CONTI LPN - 05/25/2016 14:10 CDT Source: [facility] Document Id: [id number] CDT!31 documented in this encounter Plan of Treatment Upcoming Encounters Date Type Specialty Care Team Description 08/17/2022 Procedure visit Neurology Marina Winter M.D., M.P.H. [address] [phone] (Wo rk) Scheduled Procedures Name Priority Associated Diagnoses Date/Time LIFT THIGH Excessive And Redundant Skin And Subcutaneous Tissue documented as of this encounter Visit Diagnoses Not on filedocumented in this encounter Additional Health Concerns Assessment Noted Time PHQ-9 Depression Total Score: 13 06/14/2015 3:56 PM CD T documented as of this encounter
--- OUTSIDE RECORDS SUMMARY | 2022-07-24 15:15 | XMS_ITS | Encounter Summary ---
:1985 Author Organization [facility] Address [address] [place] [address] Care Team Providers Name Role Phone Unavailable Primary Care Provider Unavailable Encounter Details Date Type Department Care Team Description 09/21/2016 Hospital Encounter HX [facility] Promise Rouse M.D. [address] [place], [place] [phone] (Wo rk) Social History [...] How often do you attend advent or hindu Never 07/04/2019 services? 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 - 09/21/2016 9:46 AM CST CHIEF COMPLAINT: care, third trimester. HISTORY OF PRESENT ILLNESS: This patient presents for a visit in the third trimester. She is being treated for right frontal sinusitis and the facial pain is improving, but the right side of her face is developing machine tender to touch. She has been sick since July. movement is reported as good. She is performing the one hour glucose test today. CURRENT MEDICATIONS and ALLERGIES have been [...] interrogation. OB labs reviewed today. Glucose test and hemoglobin are pending at the time of dictation. IMPRESSION/REPORT/PLAN: Third trimester . Recommendations: Follow up visit is scheduled in two weeks. The one hour glucose test results will be communicated to the patient by phone if abnormal or at next visit if normal. is accompanied by glucose resistance, mediated primarily by placental secretion of hormones that exert an anti-insulin effect. To avoid adverse outcomes such as preeclampsia, hydramnios, macrosomia, maternal and trauma, and mortality all woman are screened regardless of risk factors. Monitoring of movement is encouraged, with instructions to seek care when the perception is that movement is decreased. While there is no consensus that any quantitative alarm limit distinguishes a healthy fetus from a fetus at increased risk, common advice is to do kick counts. Perceptionof at least 10 movements in an hour is one quantitative approach, although transient decreasesin activity occur due to sleep status. Shar Del Angel CC: Labor and Delivery Electronically Signed By: SHAR TEJEDA MD On: 09/21/2016 09:48 AM Source: [facility] POWERCHART Document Id: [id number] K MECHANIC APPRENTICE documented in this encounter Miscellaneous Notes Miscellaneous - Shar Tejeda M.D. - 09/21/2016 9:46 AM CST Ambulatory Patient Summary [facility] [address] [place], [place] [id number] Visit Information Name: NANCY PHILLIPS [facility] Number: [id number] Current Date: 09/21/2016 09:46:12 Physicians Attending Provider: SHAR TEJEDA MD Primary [...] the Following Medications: Medication list as of 09-21-16 09:46 Attention: If you have any medications at [...] Electronically Signed By: SHAR TEJEDA MD Signed On:21-SEP-2016 09:46:08 Your Allergies & Intolerances Substance Reaction Symptoms [...] Your Upcoming Appointments Date Time Location Provider 10/05/2016 13:15 [facility] STILL OPERATOR GIN Shar Tejeda MD 10/13/2016 09:45 [facility] STILL OPERATOR GIN Emmy RED, Cassie 10/19/2016 13:15 [facility] STILL OPERATOR GIN Shar Tejeda MD 11/02/2016 13:15 [facility] STILL OPERATOR GIN Shar Tejeda MD 11/16/2016 13:15 [facility] STILL OPERATOR GIN Shar Tejeda MD 11/23/2016 13:15 [facility] STILL OPERATOR GIN Shar Tejeda MD 12/15/2016 11:15 [facility] STILL OPERATOR GIN Ayanna Xie NP 01/12/2017 13:15 [facility] STILL OPERATOR GIN Shar Tejeda MD Attention: Contact your local [...] if you dont have one. Go to [email or web address] and click on Create Your Account. Then, follow the directions to complete the online form. Youll be asked for your [facility] number which you can find at the top of this document. Your Goals/Additional instructions: Source: [facility] POWERCHART Document Id: [id number] K MECHANIC APPRENTICE Miscellaneous - Shar Tejeda M.D. - 09/21/2016 9:46 AM CST Ambulatory Discharge Medication List [facility] [address] [place] [id number] Visit Information Name: NANCY PHILLIPS [facility] Number: [id number] Current Date: 09/21/2016 09:46:11 Attending Provider: SHAR TEJEDA MD Primary Care [...] the Following Medications: Medication list as of 09-21-16 09:46 Attention: If you have any medications at [...] Electronically Signed By: SHAR TEJEDA MD Signed On:21-SEP-2016 09:46:08 Additional Information: Source: [facility] POWERCHART Document Id: [id number] K MECHANIC APPRENTICE Miscellaneous - Laverne Conti, L.P.N. - 09/21/2016 8:49 AM CST Adult Laboratory Sampler Intake/History Adult Laboratory Sampler Intake/History Entered On: 09/21/2016 8:53 TRUCK MECHANIC APPRENTICE Performed On: 09/21/2016 8:49 TRUCK MECHANIC APPRENTICE by LAVERNE CONTI LPN Intake Chief Complaint : ob check and OB-50 Systolic Blood Pressure : 122 mmHg Diastolic Blood Pressure : 68 mmHg NIBP Mean : 86 mmHg BP Location : Left upper extremity Blood Pressure Cuff Size : Large Height : 164 cm(Converted to: 5 ft 5 inch(es), 65 inch(es)) Actual Weight : 130.8 kg(Converted to: 288 lb 6 oz) Dosing Weight Clinic : 130.8 kg Clinic BSA : 2.44 Body Mass Index : 48.63 kg/m2 LAVERNE CONTI LPN - 09/21/2016 8:49 TRUCK MECHANIC APPRENTICE General Info Languages : Vietnamese Is Patient Female and 13-50 no hysterectomy : No KATHERIN, LAVERNE D DOMESTIC TRAVEL CONSULTANT - 09/21/2016 8:49 TRUCK MECHANIC APPRENTICE Subjective Pain Symptoms : No LAVERNE CONTI LPN - 09/21/2016 8:49 TRUCK MECHANIC APPRENTICE Dependent Habits Exposure to Tobacco Smoke : Other: never Smoking Status : Never smoker Tobacco 2A : No Tobacco Use/Currently Using : No Tobacco Use/Last 30 Days : No Tobacco Use/Last 12 months : No LAVERNE CONTI LPN - 09/21/2016 8:49 TRUCK MECHANIC APPRENTICE Caffeine Use Grid Caffeine Use : Current Type : Soft drinks Frequency : Daily Amount : regular 1-2 cans daily LAVERNE CONTI LPN - 09/21/2016 8:49 TRUCK MECHANIC APPRENTICE Source: [employer] Document Id: [id number] TRUCK MECHANIC APPRENTICE!31 K MECHANIC APPRENTICE documented in this encounter Plan of Treatment Upcoming Encounters Date Type Specialty Care Team Description 08/17/2022 Procedure visit Neurology Marina Winter M.D., M.P.H. [address] [phone] (Wo rk) Scheduled Procedures Name Priority Associated Diagnoses Date/Time LIFT THIGH Excessive And Redundant Skin And Subcutaneous Tissue documented as of this encounter Visit Diagnoses Not on filedocumented in this encounter Additional Health Concerns Assessment Noted Time PHQ-9 Depression Total Score: 13 06/14/2015 3:56 PM CD T documented as of this encounter
--- OUTSIDE RECORDS SUMMARY | 2022-07-24 15:15 | XMS_ITS | Encounter Summary ---
:1985 Author Organization [facility] Address [address] [place] [address] Care Team Providers Name Role Phone Unavailable Primary Care Provider Unavailable Encounter Details Date Type Department Care Team Description 08/24/2016 Hospital Encounter HX [facility] Promise Rouse M.D. [address] [place], [place] [phone] (Wo rk) Social History [...] 03/29/2020 relatives? How often do you attend sikh or bahai Never 07/04/2019 services? 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 - 08/24/2016 1:55 PM CDT CHIEF COMPLAINT: care, second trimester. HISTORY OF PRESENT ILLNESS: This patient presents for a visit in the second trimester. She has no unusual complaints today and is not experiencing abnormal discharge nor vaginal bleeding. She is tolerating PO [...] by doppler interrogation. OB labs reviewed today. Results of the anatomic survey are well documented in the electronic medical record. IMPRESSION/REPORT/PLAN: Second trimester . Recommendations: Follow up visit is scheduled in four weeks. A one hour glucose test and hemoglobin s planned for about 28 weeks gestational age. Monitoring of movement is encouraged, with instructions [...] Electronically Signed By: SHAR TEJEDA MD On: 08/24/2016 01:55 PM Source: [facility] POWERCHART Document Id: [id number] documented in this encounter Miscellaneous Notes Miscellaneous - Shar Tejeda M.D. 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 Go to [email or web address] and click on Create Your Account. Then, follow the directions to complete the online form. Youll be asked for your [facility] number which you can find at the top of this document. Your Goals/Additional instructions: Source: [facility] POWERCHART Document Id: [id number] Miscellaneous - Shar Tejeda M.D. - 08/24/2016 1:55 PM CDT Ambulatory Discharge Medication List [facility] [address] [place], [place] [id number] Visit Information Name: NANCY PHILLIPS [facility] Number: [id number] Current Date: 08/24/2016 13:55:01 Attending Provider: SHAR TEJEDA MD Primary Care [...] the Following Medications: Medication list as of 08-24-16 13:55 Attention: If you have any medications at [...] Electronically Signed By: SHAR TEJEDA MD Signed On:24-AUG-2016 13:54:56 Additional Information: Source: [facility] POWERCHART Document Id: [id number] Miscellaneous - Chinyere Espinal, L.P.N. 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 Pt c/o pressure and imer kelly. (Comment: Zika screening questions1.) Have you or your partner traveled outside of [place] up to 6 monthsprior to this ? Yes-partner 2.) If so, where specifically have you or your partner traveled(Country, State)? [place]3.) If you or your partner have traveled to [place] since April? No Where in [place] did you travel? _N/A [CHINYERE ESPINAL LPN - 08/24/2016 13:36 CDT] ) Systolic Blood Pressure : 112 mmHg Diastolic Blood Pressure : 70 mmHg NIBP Mean : 84 mmHg BP Location : Left upper extremity Blood Pressure Cuff Size : Large Height : 164 cm(Converted to: 5 ft 5 inch(es), 65 inch(es)) Actual Weight : 133.0 kg(Converted to: 293 lb 3 oz) Weight Source : Standing scale Dosing Weight Clinic : 133 kg Clinic BSA : 2.46 Body Mass Index : 49.45 kg/m2 CHINYERE ESPINAL PRADEEP - 08/24/2016 13:36 CDT General Info Information Given By : Patient Languages : Sinhala Is Patient Female and 13-50 no hysterectomy : No CHINYERE ESPINAL Nadia FERNÁNDEZ - 08/24/2016 13:36 CDT Subjective Pain Symptoms : No KYLIECHINYERE LANDIS Nadia FERNÁNDEZ - 08/24/2016 13:36 CDT Dependent Habits Exposure to Tobacco Smoke : Other: never Smoking Status : Never smoker Tobacco 2A : No Tobacco Use/Currently Using : No Tobacco Use/Last 30 Days : No Tobacco Use/Last 12 months : No KYLIECHINYERE Nadia FERNÁNDEZ - 08/24/2016 13:36 CDT Caffeine Use Grid Caffeine Use : Current Type : Soft drinks Frequency : Daily Amount : regular 1-2 cans daily CHINYERE ESPINAL LPN - 08/24/2016 13:36 CDT [facility] Document Id: [id number] CDT!34 documented in this encounter Plan of Treatment Upcoming Encounters Date Type Specialty Care Team Description 08/17/2022 Procedure visit Neurology Marina Winter M.D., M.P.H. [address] [phone] (Wo rk) Scheduled Procedures Name Priority Associated Diagnoses Date/Time LIFT THIGH Excessive And Redundant Skin And Subcutaneous Tissue documented as of this encounter Procedures Procedure Name Priority Date/Time Associated Comments Diagnosis URINALYSIS WITH Routine 08/24/2016 3:05 PM Result s for this MICROSCOPIC CDT procedure are i n the results section. documented in this encounter Results (ABNORMAL) Urinalysis, Complete, Includes Microscopic (08/24/2016 3:05 PM CDT) [facility] Method Time Signature HXUR WBC. 4-10 None Seen POWERCHART HPF HXUR RBC. Occ-2 None Seen POWERCHART HPF Casts, Hyaline 4-10 (A) None Seen POWERCHART LPF Squamous 4-10 (A) None Seen POWERCHART Epithelial HPF HXUR Bacteria, Present (A) None Seen POWERCHART HXUr Color Yellow Colorless POWERCHART Clarity Slightly Clear POWERCHART Cloudy (A) Glucose Negative Negative POWERCHART HXBILIRUBIN Small (A) Negative POWERCHART Ketones, QL(U) 40 (A) Negative POWERCHART Specific >=1.030 (A) POWERCHART [place], POCT, U Comment: Reference Range Specific [place]: 1.000-1.035 pH, POCT, Urine 5.5 POWERCHART Comment: Reference Range pH: 5.0-8.0 Protein, Ur, Dip Negative Negative POWERCHART Urobilinogen 0.2 0.2 MGDL POWERCHART Comment: Reference Range Urobilinogen: 0.2-1.0 mg/dL HXNITRITE Negative Negative POWERCHART HXBLOOD Trace (A) Negative POWERCHART Leukocyte Esterase Negative Negative POWERCHART Specimen (Source) Anatomical Collection Method Collection Time Re ceived Time Location / / Volume Laterality Urine, First 08/24/2016 3:05 PM Voided CDT Shar Tejeda M.D. LAB URINE ORDERABLES Performing Organization Address City/State/ZIP Code Phon e Number POWERCHART documented in this encounter Visit Diagnoses Not on filedocumented in this encounter Additional Health Concerns Assessment Noted Time PHQ-9 Depression Total Score: 13 06/14/2015 3:56 PM CD T documented as of this encounter
--- OUTSIDE RECORDS SUMMARY | 2022-07-24 15:16 | XMS_ITS | Encounter Summary ---
:1985 Author Organization [facility] Address [address] [place] [address] Care Team Providers Name Role Phone Unavailable Primary Care Provider Unavailable Encounter Details Date Type Department Care Team Description 04/20/2016 Hospital Encounter HX NO MAPPING Nahun Tejeda M.D. [address] [place], [place] [phone] (Wo rk) Social History [...] 03/29/2020 relatives? How often do you attend sabianist or baptist Never 07/04/2019 services? 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 Coded By: JAE SON Date Saved: 05/02/2016 04:21 pm Source: [facility] Document Id: [id number] documented in this encounter Plan of Treatment Upcoming Encounters Date Type Specialty Care Team Description 08/17/2022 Procedure visit Neurology Marina Winter M.D., M.P.H. [address] [phone] (Wo rk) Scheduled Procedures Name Priority Associated Diagnoses Date/Time LIFT THIGH Excessive And Redundant Skin And Subcutaneous Tissue documented as of this encounter Visit Diagnoses Not on filedocumented in this encounter Additional Health Concerns Assessment Noted Time PHQ-9 Depression Total Score: 13 06/14/2015 3:56 PM CD T documented as of this encounter
--- OUTSIDE RECORDS SUMMARY | 2022-07-24 15:16 | XMS_ITS | Encounter Summary ---
:1985 Author Organization [facility] Address [address] [place] [address] Care Team Providers Name Role Phone Unavailable Primary Care Provider Unavailable Encounter Details Date Type Department Care Team Description 04/05/2016 Hospital Encounter HX [facility] LAB Nahun Tejeda M.D. [address] [place], [place] [phone] (Wo rk) Social History [...] 03/29/2020 relatives? How often do you attend pentecostal or nondenominational Never 07/04/2019 services? 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 [address] [place] [phone] (Wo rk) Scheduled Procedures Name Priority Associated Diagnoses Date/Time LIFT THIGH Excessive And Redundant Skin And Subcutaneous Tissue documented as of this encounter Procedures Procedure Name Priority Date/Time Associated Diagnosis Comme nts BHCG (BETA-HUMAN Routine 04/05/2016 4:02 PM Resul ts for this CHORIONIC CDT procedure are i n GONADOTROPIN), the results SUSAN, S section. documented in this encounter Results (ABNORMAL) bHCG (Beta-Human Chorionic Gonadotropin), Quantitative (04/05/2016 4:02 PM CDT) P athologist Signature Beta-HCG, 42.4 (H) <=4.9 IUL POWERCHART Quantitative, S Comment: Conchita- and postmenopausal female s >40 years of age may have detectable hCG concentrations (<14 IU/L) due to pituita ry production of hCG. Specimen (Source) Anatomical Collection Method Collection Time Re ceived Time Location / / Volume Laterality Blood 04/05/2016 4:02 PM CDT Dona Villa M.D. LAB BLOOD ADD-ON Performing Organization Address City/State/ZIP Code Phon e Number POWERCHART documented in this encounter Visit Diagnoses Not on filedocumented in this encounter Additional Health Concerns Assessment Noted Time PHQ-9 Depression Total Score: 13 06/14/2015 3:56 PM CD T documented as of this encounter
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
--- OUTSIDE RECORDS SUMMARY | 2022-07-24 15:16 | XMS_ITS | Encounter Summary ---
:1985 Author Organization [facility] Address [address] [place] [address] Care Team Providers Name Role Phone Unavailable Primary Care Provider Unavailable Encounter Details Date Type Department Care Team Description 04/17/2016 Hospital Encounter HX [facility] Eva Bangura M.D. Social History Tobacco Use Types Packs/Day [...] How often do you attend islam or latter day Never 07/04/2019 services? 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 - 04/17/2016 3:56 PM CDT [id number] CHIEF COMPLAINT/REASON FOR VISIT Cough. HISTORY OF PRESENT ILLNESS This 31-year-old 5, para 3, AB1 female identifying an LMP of 03/07/2016 known to be presents with a 3-week history of cough that just does not seem to clear without associated fever. She had earlier epigastric region discomfort, but this has resolved. No other acute concerns are voiced. SYSTEMS REVIEW No other current acute HEENT or cardiorespiratory positive. MEDICATIONS As per EMR. ALLERGIES Negative. VITAL SIGNS As charted. PHYSICAL EXAMINATION GENERAL: Pleasant obese female in no acute distress. ENT: TMs are clear. Nose is somewhat congested. Nasopharynx is not red. NECK: Without acute adenopathy. CARDIOVASCULAR: Regular. LUNGS: Occasional congested cough is heard. Lungs are otherwise clear. ABDOMEN: Bowel sounds are active. Soft. No acute tenderness. IMPRESSION/REPORT/PLAN Protracted cough with clinical upper respiratory infection picture. THERAPEUTIC: Endorsed the addition of antibiotics in this early and I reviewed with patient options in this regard referencing the Internet resource Up-to-date to address risk category. Ultimately we mutually agreed to the addition of Zithromax which is a category B agent. She may take Tylenol as needed. PATIENT EDUCATION: Reviewed the above. Follow up here in lack of response and for routine obstetrical care. Pierre Bangura M.D./pepe Electronically Signed By: PIERRE BANGURA MD On: 04/18/2016 04:03 PM Source: [facility] MH[facility]OLBEYNON[employer]SYS Document Id: [id number] documented in this encounter Miscellaneous Notes Miscellaneous - Pierre Bangura M.D. - 04/17/2016 4:33 PM CDT Ambulatory Patient Summary [place] [id number] Visit Information Name: NANCY PHILLIPS [facility] Number: [id number] Current Date: 04/17/2016 16:33:17 Physicians Attending Provider: UNKNOWN1, PROVIDER Primary Care Provider: MAILE ZARATE MD NANCY [...] Take Indications/Special Instructions/Comments/Notes for Patient Medication Changes/Routing azithromycin (Azithromycin 5 Day Dose Pack 250 mg oral tablet) 2 tablets on day 1, then 1 tablet on days 2-5, Oral, as directed x 5 day(s) New Routed to [facility] [address] [place] [id number] multivitamin, ( Multivitamins) 1 TAB, Oral, once a day Stop Taking the Following Medications: Medication list as of 04-17-16 16:33 Attention: If you have any medications at home that are not on this list, DO NOT take them until youcontact your provider for clarification. Give a copy of your medication list to your primary care provider. Update your medication list any time medications or doses are changed and carry your medication list at all times in case of emergency. Electronically Signed By: PIERRE BANGURA MD Signed On:17-APR-2016 16:33:15 Your Allergies & Intolerances Substance Reaction Symptoms [...] Your Upcoming Appointments Date Time Location Provider 05/11/2016 10:30 [facility] DIVISION CONTROLLER Nahun Tejeda MD 05/29/2016 12:30 [facility] EVANS, Ansley Luna Attention: Contact your local Clinic if further [...] if you dont have one. Go to [email or web address] and click on Create Your Account. Then, follow the directions to complete the online form. Youll be asked for your [facility] number which you can find at the top of this document. Your Goals/Additional instructions: Source: [facility] POWERCHART Document Id: [id number] Miscellaneous - Pierre Bangura M.D. - 04/17/2016 4:33 PM CDT Ambulatory Discharge Medication List [address] [id number] Visit Information Name: NANCY PHILLIPS [facility] Number: [id number] Visit Date: 04/17/2016 16:33:17 Attending Provider: UNKNOWN1, PROVIDER Primary Care Provider: MAILE ZARATE MD NANCY [...] Take Indications/Special Instructions/Comments/Notes for Patient Medication Changes/Routing azithromycin (Azithromycin 5 Day Dose Pack 250 mg oral tablet) 2 tablets on day 1, then 1 tablet on days 2-5, Oral, as directed x 5 day(s) New Routed to [facility] [address] [place] [address] multivitamin, ( Multivitamins) 1 TAB, Oral, once a day Stop Taking the Following Medications: Medication list as of 04-17-16 16:33 Attention: If you have any medications at home that are not on this list, DO NOT take them until youcontact your provider for clarification. Give a copy of your medication list to your primary care provider. Update your medication list any time medications or doses are changed and carry your medication list at all times in case of emergency. Electronically Signed By: PIERRE BANGURA MD Signed On:17-APR-2016 16:33:15 Additional Information: Source: [facility] POWERCHART Document Id: [id number] Miscellaneous - Tammi Hernandez L.P.N. 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 is 6 weeks and has also been had sharp stomach pains last night and cramps today. Onset of Symptoms : 3 weeks Temperature Oral : 36.9 DegC(Converted to: 98.4 DegF) Peripheral Pulse Rate : 94 /min Respiratory Rate : 12 /min (LOW) Systolic Blood Pressure : 124 mmHg Diastolic Blood Pressure : 80 mmHg NIBP Mean : 95 mmHg BP Location : Right upper extremity Blood Pressure Cuff Size : Large SpO2 : 99 % Height : 164 cm(Converted to: 5 ft 5 inch(es), 65 inch(es)) Actual Weight : 138.6 kg(Converted to: 305 lb 9 oz) Dosing Weight Clinic : 138.6 kg Clinic BSA : 2.51 Body Mass Index : 51.53 kg/m2 TAMMI HERNANDEZ LPN - 04/17/2016 16:02 CDT General Info Information Given By : Patient Preferred Communication Mode : Verbal Languages : Korean Is Patient Female and 13-50 no hysterectomy : No TAMMI HERNANDEZ LPN - 04/17/2016 16:02 CDT Subjective Pain Symptoms : Yes TAMMI HERNANDEZ LPN - 04/17/2016 16:02 CDT Pain Scale Pain Scale Verbal 0-10 : Open TAMMI HERNANDEZ LPN - 04/17/2016 16:02 CDT Pain Pain Assessment Grid Pain 1 Pain 2 Location : Abdomen Chest TAMMI HERNANDEZ LPN - 04/17/2016 16:02 CDT TAMMI HERNANDEZ LPN - 04/17/2016 16:02 CDT Dependent Habits Exposure to Tobacco Smoke : Other: never Smoking Status : Never smoker Tobacco 2A : No Tobacco Use/Currently Using : No Tobacco Use/Last 30 Days : No Tobacco Use/Last 12 months : No TAMMI HERNANDEZ LPN - 04/17/2016 16:02 CDT Caffeine Use Grid Caffeine Use : Current Type : Soft drinks Frequency : Daily Amount : regular 1-2 cans daily TAMMI HERNANDEZ LPN - 04/17/2016 16:02 CDT Source: [employer] ([place]) Document Id: [id number] documented in this encounter Plan of Treatment Upcoming Encounters Date Type Specialty Care Team Description 08/17/2022 Procedure visit Neurology Marina Winter M.D., M.P.H. [address] [phone] (Wo rk) Scheduled Procedures Name Priority Associated Diagnoses Date/Time LIFT THIGH Excessive And Redundant Skin And Subcutaneous Tissue documented as of this encounter Visit Diagnoses Not on filedocumented in this encounter Additional Health Concerns Assessment Noted Time PHQ-9 Depression Total Score: 06/14/2015 3:56 PM CD T documented as of this encounter
--- OUTSIDE RECORDS SUMMARY | 2022-07-24 15:16 | XMS_ITS | Encounter Summary ---
:1985 Author Organization [facility] Address [address] [place] [address] Care Team Providers Name Role Phone Unavailable Primary Care Provider Unavailable Encounter Details Date Type Department Care Team Description 04/20/2016 Hospital Encounter HX NO MAPPING Nahun Tejeda M.D. [address] [place], [place] [phone] (Wo rk) Social History [...] How often do you attend christianity or mormon Never 07/04/2019 services? 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 [address], [place] [phone] (Wo rk) Scheduled Procedures Name Priority Associated Diagnoses Date/Time LIFT THIGH Excessive And Redundant Skin And Subcutaneous Tissue documented as of this encounter Visit Diagnoses Not on filedocumented in this encounter Additional Health Concerns Assessment Noted Time PHQ-9 Depression Total Score: 13 06/14/2015 3:56 PM CD T documented as of this encounter
--- OUTSIDE RECORDS SUMMARY | 2022-07-24 15:16 | XMS_ITS | Encounter Summary ---
:1985 Author Organization [facility] Address [address] [place] [address] Care Team Providers Name Role Phone Unavailable Primary Care Provider Unavailable Encounter Details Date Type Department Care Team Description 03/06/2016 Hospital Encounter HX [facility] Meche Montiel M.D. [address] [place], [place] [phone] (Wo rk) Social History [...] How often do you attend moravian or yazidi Never 07/04/2019 services? 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 Last Filed Vital Signs Vital Sign Reading Time Taken Comments Blood Pressure - - Pulse - - Temperature - - Respiratory Rate - - Oxygen Saturation - - Inhaled Oxygen Concentration - - Weight - - Height 164 cm (5' 4.57) 03/06/2016 12:00 PM CDT Body Mass Index - - documented in this encounter Miscellaneous Notes Telephone Encounter - Conversion, Historical Provider Ser - 04/04/2016 12:01 PM CDT Gaunt Document Contains Addenda Addendum by LIA CUEVAS LPN on April 04, 2016 12:36:44 CDT Patient states took positive test Last menstrual period 02-02-2016 Estimated date of delivery 11-08-2016 Vitamins yes 5 Para 3, 1 missed ab 11 years ago What type of delivery c section New obstetrical pack mailed Allergies_ Pharmacy_ New obstetrical appointments made Addendum by LIA CUEVAS LPN on April 04, 2016 12:26:34 CDT Left message to call back. From: VAHID ASH To: OW POLYMERIZATION SUPERVISOR Nurse; Sent: 04/04/2016 12:01:40 CDT Subject: Ileana Caller is: ( ) Patient ( ) Mother ( ) Father ( ) Spouse ( ) Daughter ( ) Son ( ) Pharmacy ( ) Other: Physician: Ileana Patient MRN #: Reason for Call: Message: Patient would like to schedule new OB appointments. Please call today [phone], after today call [phone]. Thank you Advice/Action: Source used: ( ) Verbalizes understanding [...] back cell phone number ( ) Source: [facility] POWERCHART Document Id: [id number] Miscellaneous - Luis Armando Oquendo P.A.-C. - 03/07/2016 9:08 AM CDT From: LUIS ARMANDO OQUENDO To: NANCY PHILLIPS Sent: 03/07/2016 09:08:52 CDT Nancy, Your blood test came back negative. Let us know if you have any questions or concerns, Luis Armando Oquendo PA-C Results: Date Result Name Value Ref Range 03/06/2016 16:33 Beta hCG Qnt 4.0 IU/L ( - <=4.9) Source: [facility] EventWith Document Id: [id number] Miscellaneous - Luis Armando Oquendo P.A.-C. - 03/06/2016 4:22 PM CDT Addendum by ANNEMARIE MONTIEL MD on March 07, 2016 18:26:00 CDT From: ANNEMARIE MONTIEL MD To: LUIS ARMANDO OQUENDO PAC; Sent: 03/07/2016 18:26:00 CDT Subject: RE: Sounds good. Thanks. From: LUIS ARMANDO OQUENDO PAC To: ANNEMARIE MONTIEL MD; Sent: 03/06/2016 16:22:[address] Montiel, Just wanted to let you know, I placed an order for a quantitative hCG for this patient today. She was with one of my patient's appointments this afternoon and requested that the order be put in as she had not heard from you yet. Hope your afternoon is going well, Luis Armando Oquendo PA-C [facility] Document Id: [id number] Bunny - Annemarie Montiel M.D. - 03/06/2016 1:41 PM CDT Results Notification Document Contains Addenda Addendum by ANNEMARIE MONTIEL MD on March 07, 2016 18:26:24 CDT Luis Armando Oquendo addressed for pt today. Addendum by JESSICA CRISTOBAL on March 06, 2016 13:47:23 CDT From: JESSICA CRISTOBAL ([facility] 2W Nurse) To: ANNEMARIE MONTIEL MD; Sent: 03/06/2016 13:47:23 CDT Show up: 03/06/2016 13:47:00 CDT Subject: RE: Results Notification/ Pt question Patient want to know what next step is as she has still not gotten her period. Wondering about bloodtest due to the fact she had a faint positive test at home, or just wait and redo if no period. Please advise From: ANNEMARIE MONTIEL MD To: [facility] 2W Nurse; Sent: 03/06/2016 13:41:11 CDT ! Show up: 03/06/2016 13:41:11 CDT Subject: Results Notification Actions: Notify patient of results Reminder Comments: test is negative Results: Date Result Name Value 03/06/2016 12:06 U Beta-hCG Ql Negative Source: [facility] POWERCHART Document Id: [id number] Telephone Encounter - Conversion, Historical Provider Ser - 03/06/2016 1:39 PM CDT *Phone Message-TouchMail Document Contains Addenda Addendum by JAYLENE CASANOVA CMA on March 06, 2016 16:36:20 CDT Order has been placed by LUIS ARMANDO OQUENDO PAC . See recent note in chart From: MARCY ALEGRIA [facility] To: [facility] 2W Nurse; Sent: 03/06/2016 13:39:17 CDT Subject: *Phone Message-[place] Caller is: ( x ) Patient ( ) Mother ( ) Father ( ) Spouse ( ) Daughter ( ) Son ( ) Pharmacy ( ) Other: Physician: Patient MRN #: Reason for Call: Message: Patient called in and keeps getting mixed readings on home test. She did come in and do the urine test at the clinic, but there were no order for the blood test. Please call her at [phone] Advice/Action: Source used: ( ) Verbalizes understanding [...] back cell phone number ( ) Source: [facility] POWERCHART Document Id: [id number] documented in this encounter Plan of Treatment Upcoming Encounters Date Type Specialty Care Team Description 08/17/2022 Procedure visit Neurology Marina Winter M.D., M.P.H. [address] [phone] (Wo rk) Scheduled Procedures Name Priority Associated Diagnoses Date/Time LIFT THIGH Excessive And Redundant Skin And Subcutaneous Tissue documented as of this encounter Procedures Procedure Name Priority Date/Time Associated Diagnosis Comme nts BHCG (BETA-HUMAN Routine 03/06/2016 4:33 PM Resul ts for this CHORIONIC CDT procedure are i n GONADOTROPIN), the results SUSAN, S section. TEST, U Routine 03/06/2016 12:06 PM Res ults for this CDT procedure are i n the results section. documented in this encounter Results bHCG (Beta-Human Chorionic Gonadotropin), Quantitative (03/06/2016 4:33 PM CDT) P athologist Signature Beta-HCG, 4.0 <=4.9 IUL POWERCHART Quantitative, S Comment: Conchita- and postmenopausal female s >40 years of age may have detectable hCG concentrations (<14 IU/L) due to pituita ry production of hCG. Specimen (Source) Anatomical Collection Method Collection Time Re ceived Time Location / / Volume Laterality Blood 03/06/2016 4:33 PM CDT Luis Armando Oquendo P.A.-C. LAB BLOOD ADD-ON Performing Organization Address City/State/ZIP Code Phon e Number POWERCHART Test, Qualitative, Urine (03/06/2016 12:06 PM CDT) [facility] gist Method Time Signature HXBeta-hCG Negative POWERCHART Qualitative Urine Specimen (Source) Anatomical Collection Method Collection Time Re ceived Time Location / / Volume Laterality Urine 03/06/2016 12:06 PM CDT Annemarie Montiel M.D. LAB URINE ORDERABLES Performing Organization Address City/State/ZIP Code Phon e Number POWERCHART documented in this encounter Visit Diagnoses Not on filedocumented in this encounter Additional Health Concerns Assessment Noted Time PHQ-9 Depression Total Score: 13 06/14/2015 3:56 PM CD T documented as of this encounter
--- OUTSIDE RECORDS SUMMARY | 2022-07-24 15:16 | XMS_ITS | Encounter Summary ---
:1985 Author Organization [facility] Address [address] [place] [address] Care Team Providers Name Role Phone Unavailable Primary Care Provider Unavailable Encounter Details Date Type Department Care Team Description 12/19/2015 Hospital Encounter HX NO MAPPING Ajit Duncan M.D. [address] [place], [place] [phone] (Wo rk) Social History [...] How often do you attend voodoo or hoahaoism Never 07/04/2019 services? 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 [address] [place] [phone] (Wo rk) Scheduled Procedures Name Priority Associated Diagnoses Date/Time LIFT THIGH Excessive And Redundant Skin And Subcutaneous Tissue documented as of this encounter Procedures Procedure Name Priority Date/Time Associated Diagnosis Comme nts DX CHEST AP OR PA Routine 12/19/2015 7:36 PM Resu lts for this AND LATERAL 2 VIEWS END WORKER procedur e are in the results section. documented in this encounter Results DX Chest Anterior Posterior or Posterior Anterior and Lateral 2 Views (12/19/2015 7:36 PM END WORKER) Anatomical Region Laterality Modality Chest N/A Radiographic Imaging Specimen (Source) Anatomical Collection Method Collection Time Re ceived Time Location / / Volume Laterality 12/19/2015 7:36 PM END WORKER Addenda Addendum by ProviderJosh M.D. o jerson 12/19/2015 7:36 PM END WORKER RAD^^^OW XR Chest 2 Views 12/19/2015 19:36:52 Impressions 12/20/2015 8:51 AM END WORKER Negative. Narrative 12/20/2015 8:51 AM END WORKER EXAM: XR Chest 2 Views INDICATION: cough, sore throat, fever AGE: 30 years-old COMPARISON: None. FINDINGS: Normal heart size. ??Lungs are clear. Procedure Note Dilshad Faustin M.D. / ProviderJosh M.D. - 03/09/2017 EXAM: XR Chest 2 Views INDICATION: cough, sore throat, fever AGE: 30 years-old COMPARISON: None. FINDINGS: Normal heart size. Lungs are c lear. IMPRESSION: Negative. Mariella Martin(Zulema) [facility] PROC EDURES documented in this encounter Visit Diagnoses Not on filedocumented in this encounter Additional Health Concerns Assessment Noted Time PHQ-9 Depression Total Score: 13 06/14/2015 3:56 PM CD T documented as of this encounter
--- OUTSIDE RECORDS SUMMARY | 2022-07-24 15:16 | XMS_ITS | Encounter Summary ---
:1985 Author Organization [facility] Address [address] [place] [address] Care Team Providers Name Role Phone Unavailable Primary Care Provider Unavailable Encounter Details Date Type Department Care Team Description 10/18/2015 Hospital Encounter HX NO MAPPING Pierre Bangura M. D. Social History Tobacco Use Types Packs/Day Years [...] How often do you attend moravian or evangelical Never 07/04/2019 services? 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 [address] [phone] (Wo rk) Scheduled Procedures Name Priority Associated Diagnoses Date/Time LIFT THIGH Excessive And Redundant Skin And Subcutaneous Tissue documented as of this encounter Visit Diagnoses Not on filedocumented in this encounter Additional Health Concerns Assessment Noted Time PHQ-9 Depression Total Score: 13 06/14/2015 3:56 PM CD T documented as of this encounter
--- OUTSIDE RECORDS SUMMARY | 2022-07-24 15:16 | XMS_ITS | Encounter Summary ---
:1985 Author Organization [facility] Address [address] [place] [address] Care Team Providers Name Role Phone Unavailable Primary Care Provider Unavailable Encounter Details Date Type Department Care Team Description 04/10/2016 Hospital Encounter HX [facility] Nelson Schneider P.A.-C. [address] [place] [phone] (Wo rk) Social History Tobacco Use Types [...] 03/29/2020 relatives? How often do you attend sabianism or sabianist Never 07/04/2019 services? 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 Last Filed Vital Signs Vital Sign Reading Time Taken Comments Blood Pressure - - Pulse - - Temperature - - Respiratory Rate - - Oxygen Saturation - - Inhaled Oxygen Concentration - - Weight 139 kg (305 lb 12.5 oz) 04/10/2016 8:44 AM CDT Height 164 cm (5' 4.57) 04/10/2016 8:44 AM CDT Body Mass Index 51.57 04/10/2016 8:44 AM CDT documented in this encounter Nursing Notes Ansley Schneider J - 04/10/2016 12:00 AM CDT [id number] CHIEF COMPLAINT/REASON FOR VISIT Referral completed by Nahun Tejeda MD for this 31-year-old female for OB nutrition secondary to history of gestational diabetes and pregravid morbid obesity. HISTORY OF PRESENT ILLNESS DIET RECALL: Patient generally skips breakfast and lunch. She does eat a lot of fruit. States she eats a lot of carbohydrates. Supper is usually some kind of a meat, vegetable and starch-type meal. Again, they eat a lot of pasta. Yesterday they had Shilpa[employer] for supper. She drinks juice, a little bit ofwater, 1 to 2 cans of regular soda daily. She drinks 16 to 24 ounces of milk a day. Typically it is in the form of 1 large glass. It is 1% milk. She does utilize [facility] services. DIETARY SUPPLEMENTS: vitamins. ROUTINE PHYSICAL ACTIVITY: ADLs. LIMITATIONS: None. COMORBIDITIES: Per EMR. MEDICATIONS Reviewed EMR dated 04/10/2016. No changes. 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 MARITAL STATUS: She is . She has 3 children, ages 11 (girl), 5 (boy) and 3-year-old (boy). States her 5- and 3-year-old have ADHD and are disabled. TOBACCO USE: None. ALCOHOL USE: None. VITAL SIGNS Height 164 cm. Current body weight 138.7 kg. Pregravid body weight is 136.2 kg. Pregravid BMI is 50.64. IMPRESSION/REPORT/PLAN DIAGNOSTICS: No current labs. IMPRESSION: A 31-year-old female here for dietary education regarding OB nutrition secondary to pregravid morbid obesity and history of gestational diabetes. Patient states she has had gestational diabetes with 3 pregnancies. She is approximately 5 weeks' gestation, sees Dr. Tejeda on 05/11/2016. She does have some concerns regarding increased stress, increased anxiety in her life. She historically used to be taking Effexor. She felt this did help manage her depression and anxiety and she does note that since not taking it, her anxiety level has increased quite a bit. She also has multiple stressorsgoing on in her life at the present time, situational/social stressors. I did advise her to contact Dr. Tejeda early if she feels that she needs any assistance in terms of managing depression and/or anxiety. She expresses verbal understanding over this and all items discussed. Weight gain recommendation 0 to 15 pounds. Discussed carbohydrate management. Discussed label reading, carb counting. She expresses verbal understanding of all items discussed. READINESS TO LEARN: Accepting. BARRIERS TO LEARNING: None. LEARNING METHOD PREFERRED: Reading / Listening / Seeing / Doing. TEACHING METHOD USED: Printed materials / Verbal discussion / Demonstration / Return demonstration. STAGE OF BEHAVIOR CHANGE: Preparation. EDUCATION OUTCOME: Verbalizes understanding / Demonstrates correctly. Education topics covered today include: 1. Benefits of exercise. 2. Normalized eating. 3. Fundamentals for healthy eating. 4. Suggestions for increasing fruits, vegetables, protein, calcium, whole grains. 5. Healthy eating for , as patient states she declines breast-feeding. Estimated basal calorie needs are approximately 2700 calories a day. Estimated protein needs: 65 to 70 g of protein per day. Recommended meal plan: Breakfast 30 g of carbohydrate, no fruit at breakfast time. No juice whatsoever. No regular beverages whatsoever. Advised a protein serving added to her breakfast. Advised eatingbreakfast within 90 minutes of waking. Advised 30 g of carbohydrate at an a.m., p.m., and bedtime snack each. Advised 45 to 60 g of carbohydrate at lunch and 45 to 75 g of carbohydrate at supper. Again, stressed the importance of no regular beverages whatsoever. Stressed the importance of no stockpiling carbohydrates. Stressed the importance of no high carbohydrate condiments such as white or brown sugar, honey, regular jam and jelly and regular syrup. Advised again no stockpiling of carbohydrates. No juice products whatsoever and no other regular beverages such as Gatorade or Powerade either. Patient notes that she has no vomiting, no nausea at present time. She does note that for her other pregnancies she has had nausea throughout the entirety of it. Did advise patient to also work on increasing overall calcium and protein intake. Aim for a food source that is high in folic acid, vitamin C andvitamin A daily. Also discussed the importance of eating more consistently throughout the day and the need to manage overall stressors. PLAN/FOLLOWUP: Plan to see patient back in 6 weeks. Provided written material today includes: 1. Healthy Eating and Managing Symptoms for - [facility] Reference. 2. Gestational Diabetes Basics from the [facility], it is a book. 3. My Food Plan for Gestational Diabetes from the [facility]. ADMINISTRATIVE BILLING Total counseling time spent today with patient is 60 minutes. Ansley Schneider R.D., Vane/pepe Electronically Signed By: ANSLEY SCHNEIDER On: 04/26/2016 10:31 AM Source: [facility] MHSDOLBEYNONRADSYS Document Id: [id number] documented in this encounter Miscellaneous Notes Miscellaneous - Ansley Schneider - 04/10/2016 8:49 AM CDT Ambulatory Patient Summary [address] [id number] Visit Information Name: ALAN, NANCY ELIZABETH [facility] Number: [id number] Current Date: 04/10/2016 08:49:32 Physicians Attending Provider: ANSLEY SCHNEIDER Primary Care Provider: MAILE ZARATE MD NANCY [...] Take Indications/Special Instructions/Comments/Notes for Patient Medication Changes/Routing hydrOXYzine (Vistaril 25 mg oral capsule) 1 cap, Oral, four times a day as needed for Migraine headache multivitamin, ( Multivitamins) 1 TAB, Oral, once a day naproxen (Naprosyn 500 mg oral tablet) 1 Tablet(s), Oral, two times a day with meals as needed for pain and headaches *venlafaxine (Effexor XR 150 mg oral capsule, extended release) 1 cap, Oral, once a day New dose * You have let us know that you are not taking this medication as listed. Please talk with your primary care provider or the health care provider who prescribed the medication as soon as possible. Stop Taking the Following Medications: Medication list as of 04-10-16 08:49 Attention: If you have any medications at home that are not on this list, DO NOT take them until youcontact your provider for clarification. Give a copy of your medication list to your primary care provider. Update your medication list any time medications or doses are changed and carry your medication list at all times in case of emergency. 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 Go to [email or web address] and click on Create Your Account. Then, follow the directions to complete the online form. Youll be asked for your [facility] number which you can find at the top of this document. Your Goals/Additional instructions: Source: [facility] POWERCHART Document Id: [id number] Miscellaneous - Ansley Schneider - 04/10/2016 8:49 AM CDT Ambulatory Discharge Medication List [facility] [address] [place], [place] [phone] Visit Information Name: NANCY PHILLIPS [facility] Number: [id number] Visit Date: 04/10/2016 08:49:31 Attending Provider: ANSLEY SCHNEIDER Primary Care Provider: MAILE ZARATE MD NANCY [...] Take Indications/Special Instructions/Comments/Notes for Patient Medication Changes/Routing hydrOXYzine (Vistaril 25 mg oral capsule) 1 cap, Oral, four times a day as needed for Migraine headache multivitamin, ( Multivitamins) 1 TAB, Oral, once a day naproxen (Naprosyn 500 mg oral tablet) 1 Tablet(s), Oral, two times a day with meals as needed for pain and headaches *venlafaxine (Effexor XR 150 mg oral capsule, extended release) 1 cap, Oral, once a day New dose * You have let us know that you are not taking this medication as listed. Please talk with your primary care provider or the health care provider who prescribed the medication as soon as possible. Stop Taking the Following Medications: Medication list as of 04-10-16 08:49 Attention: If you have any medications at home that are not on this list, DO NOT take them until youcontact your provider for clarification. Give a copy of your medication list to your primary care provider. Update your medication list any time medications or doses are changed and carry your medication list at all times in case of emergency. Electronically Signed By: ANSLEY SCHNEIDER Signed On:10-APR-2016 08:49:05 Additional Information: Source: [facility] POWERCHART Document Id: [id number] Miscellaneous - Ansley Schneider - 04/10/2016 8:44 AM CDT Adult Customer Service Attendant Intake/History Adult Customer Service Attendant Intake/History Entered On: 04/10/2016 8:47 CDT Performed On: 04/10/2016 8:44 CDT by ANSLEY SCHNEIDER RDLD Intake Height : 164 cm(Converted to: 5 ft 5 inch(es), 65 inch(es)) Actual Weight : 138.7 kg(Converted to: 305 lb 12 oz) Dosing Weight Clinic : 138.7 kg Clinic BSA : 2.51 Body Mass Index : 51.57 kg/m2 ANSLEY SCHNEIDER - 04/10/2016 8:44 CDT General Info Information Given By : Patient Languages : Citizen Of [place] Is Patient Female and 13-50 no hysterectomy : No ANSLEY SCHNEIDER - 04/10/2016 8:44 CDT Subjective Pain Symptoms : No ANSLEY SCHNEIDER - 04/10/2016 8:44 CDT Dependent Habits Exposure to Tobacco Smoke : Other: never Smoking Status : Never smoker Tobacco 2A : No Tobacco Use/Currently Using : No Tobacco Use/Last 30 Days : No Tobacco Use/Last 12 months : No Alcohol Use : No ANSLEY SCHNEIDER - 04/10/2016 8:44 CDT Caffeine Use Grid Caffeine Use : Current Type : Soft drinks Frequency : Daily Amount : regular 1-2 cans daily ANSLEY SCHNEIDER - 04/10/2016 8:44 CDT [facility] Document Id: [id number] CDT!27 documented in this encounter Plan of Treatment Upcoming Encounters Date Type Specialty Care Team Description 08/17/2022 Procedure visit Neurology Marina Winter M.D., M.P.H. [address] [phone] (Wo rk) Scheduled Procedures Name Priority Associated Diagnoses Date/Time LIFT THIGH Excessive And Redundant Skin And Subcutaneous Tissue documented as of this encounter Visit Diagnoses Not on filedocumented in this encounter Additional Health Concerns Assessment Noted Time PHQ-9 Depression Total Score: 13 06/14/2015 3:56 PM CD T documented as of this encounter
--- OUTSIDE RECORDS SUMMARY | 2022-07-24 15:16 | XMS_ITS | Encounter Summary ---
:1985 Author Organization [facility] Address [address] [place] [address] Care Team Providers Name Role Phone Unavailable Primary Care Provider Unavailable Encounter Details Date Type Department Care Team Description 04/07/2016 Hospital Encounter HX NO MAPPING Nahun Tejeda M.D. [address] [place], [place] [phone] (Wo rk) Social History [...] How often do you attend christianity or jainism Never 07/04/2019 services? 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 However, the narrative phrase printed from the coding software may appear abbreviated, or result in slightly different terminology. Coded By: JAE SON Date Saved: 04/20/2016 01:22 pm [facility] Document Id: [id number] documented in this encounter Plan of Treatment Upcoming Encounters Date Type Specialty Care Team Description 08/17/2022 Procedure visit Neurology Marina Winter M.D., M.P.H. [address] [phone] (Wo rk) Scheduled Procedures Name Priority Associated Diagnoses Date/Time LIFT THIGH Excessive And Redundant Skin And Subcutaneous Tissue documented as of this encounter Visit Diagnoses Not on filedocumented in this encounter Additional Health Concerns Assessment Noted Time PHQ-9 Depression Total Score: 13 06/14/2015 3:56 PM CD T documented as of this encounter
--- OUTSIDE RECORDS SUMMARY | 2022-07-24 15:16 | XMS_ITS | Encounter Summary ---
:1985 Author Organization [facility] Address [address] [place] [address] Care Team Providers Name Role Phone Unavailable Primary Care Provider Unavailable Encounter Details Date Type Department Care Team Description 01/06/2016 Hospital Encounter [facility] Veronica Mccord M.D. [address] [place] [phone] (Wo rk) Social History Tobacco [...] 03/29/2020 relatives? How often do you attend mormon or evangelical Never 07/04/2019 services? 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 - 01/06/2016 6:38 PM CST [id number] CHIEF COMPLAINT/REASON FOR VISIT A 30-year-old female, 2-day history of chest congestion and cough, feels tight when she is coughing,chills and sweats a couple of days ago, not so much now. VITAL SIGNS Per nurse's notes on EMR today within normal limits. Temp currently 36.8. PHYSICAL EXAMINATION HEENT: Oropharynx clear. Ears fine. NECK: Negative for masses or nodes of significance. LUNGS: Clear without accessory muscle use. Minimal cough. HEART: Regular rate and rhythm. IMPRESSION/REPORT/PLAN Upper respiratory infection. Tessalon is prescribed. Zithromax script can be considered if she is worsening or really not improving in the next week or so. Follow up otherwise as needed. Juany Mccord M.D./pepe Electronically Signed By: JUANY MCCORD MD On: 01/09/2016 10:07 AM Source: [facility] MHSDOLBEYNONRADSYS Document Id: [id number] PAINTER documented in this encounter Miscellaneous Notes Miscellaneous - Juany Mccord M.D. - 01/06/2016 7:39 PM CST Ambulatory Patient Summary [facility] [address] [place], [place] [id number] Visit Information Name: NANCY PHILLIPS [facility] Number: [id number] Current Date: 01/06/2016 19:39:09 Physicians Attending Provider: UNKNOWN1, PROVIDER Primary Care [...] Take Indications/Special Instructions/Comments/Notes for Patient Medication Changes/Routing *azithromycin (Zithromax 500 mg oral tablet) 2 Tablet(s), Oral, once Repeat dsoe in 1 week. hydrOXYzine (Vistaril 25 mg oral capsule) 1 cap, Oral, four times a day as needed for Migraine headache naproxen (Naprosyn 500 mg oral tablet) 1 Tablet(s), Oral, two times a day with meals as needed for pain and headaches will call when refill needed rizatriptan (Maxalt 5 mg oral tablet) 1 Tablet(s), Oral, once a day as needed for Migraine headache may repeat dose once in 2 hours venlafaxine (Effexor XR 150 mg oral capsule, extended release) 1 cap, Oral, once a day New dose * You have let us know that you are not taking this medication as listed. Please talk with your primary care provider or the health care provider who prescribed the medication as soon as possible. Stop Taking the Following Medications: Medication list as of 01-06-16 19:39 Attention: If you have any medications at home that are not on this list, DO NOT take them until youcontact your provider for clarification. Give a copy of your medication list to your primary care provider. Update your medication list any time medications or doses are changed and carry your medication list at all times in case of emergency. Electronically Signed By: JUANY MCCORD MD Signed On:06-JAN-2016 19:39:04 Your Allergies & Intolerances Substance Reaction Symptoms [...] Section, Antepartum Condition or Complication Active 04/23/2013 Your Upcoming Appointments Date Time Location Provider [...] online form. Youll be asked for your [facility] number which you can find at the top of this document. Your Goals/Additional instructions: Source: [facility] POWERCHART Document Id: [id number] PAINTER Miscellaneous - Juany Mccord M.D. - 01/06/2016 7:39 PM CST Ambulatory Discharge Medication List [facility] [address] [place] [id number] Visit Information Name: ALAN NANCY JOHNSON [facility] Number: [id number] Visit Date: 01/06/2016 19:39:07 Attending Provider: UNKNOWN1, PROVIDER Primary Care Provider: [...] Take Indications/Special Instructions/Comments/Notes for Patient Medication Changes/Routing *azithromycin (Zithromax 500 mg oral tablet) 2 Tablet(s), Oral, once Repeat dsoe in 1 week. hydrOXYzine (Vistaril 25 mg oral capsule) 1 cap, Oral, four times a day as needed for Migraine headache naproxen (Naprosyn 500 mg oral tablet) 1 Tablet(s), Oral, two times a day with meals as needed for pain and headaches will call when refill needed rizatriptan (Maxalt 5 mg oral tablet) 1 Tablet(s), Oral, once a day as needed for Migraine headache may repeat dose once in 2 hours venlafaxine (Effexor XR 150 mg oral capsule, extended release) 1 cap, Oral, once a day New dose * You have let us know that you are not taking this medication as listed. Please talk with your primary care provider or the health care provider who prescribed the medication as soon as possible. Stop Taking the Following Medications: Medication list as of 01-06-16 19:39 Attention: If you have any medications at home that are not on this list, DO NOT take them until youcontact your provider for clarification. Give a copy of your medication list to your primary care provider. Update your medication list any time medications or doses are changed and carry your medication list at all times in case of emergency. Electronically Signed By: JUNAY MCCORD MD Signed On:06-JAN-2016 19:39:04 Additional Information: Source: [facility] POWERCHART Document Id: [id number] PAINTER Miscellaneous - Rocio Wolf, C.MRodrigoARodrigo - 01/06/2016 7:09 PM CST Adult Installation Helper Intake/History Adult Installation Helper Intake/History Entered On: 01/06/2016 19:17 CARD PAINTER Performed On: 01/06/2016 19:09 CARD PAINTER by ROCIO WOLF [facility] Intake Chief Complaint : hard time breathing, cough, chest congestion, chills/sweats 2 days ago Onset of Symptoms : 2 days Temperature Core : 36.8 DegC(Converted to: 98.2 DegF) Peripheral Pulse Rate : 94 /min Respiratory Rate : 18 /min Heart Rhythm : Regular Systolic Blood Pressure : 132 mmHg Diastolic Blood Pressure : 96 mmHg (>HHI) NIBP Mean : 108 mmHg BP Location : Right upper extremity Blood Pressure Cuff Size : Large SpO2 : 100 % Height : 164 cm(Converted to: 5 ft 5 inch(es), 65 inch(es)) Actual Weight : 136.4 kg(Converted to: 300 lb 11 oz) Dosing Weight Clinic : 136.4 kg Clinic BSA : 2.49 Body Mass Index : 50.71 kg/m2 ROICO WOLF [facility] - 01/06/2016 19:09 CARD PAINTER General Info Information Given By : Patient Languages : Pashto Is Patient Female and 13-50 no hysterectomy : Yes Status : Patient denies Are you ? : No ROCIO WOLF [facility] - 01/06/2016 19:09 CARD PAINTER Subjective Pain Symptoms : Yes ROCIO WOLF [facility] - 01/06/2016 19:09 CARD PAINTER Pain Scale Pain Scale Verbal 0-10 : Open ROCIO WOLF [facility] - 01/06/2016 19:09 CARD PAINTER Pain Pain Assessment Grid Pain 1 Pain 2 Location : Chest Other: middle back Laterality : Other: middle Right Intensity : 3 4 ROCIO WOLF [facility] - 01/06/2016 19:09 CARD PAINTER ROCIO WOLF [facility] - 01/06/2016 19:09CST Dependent Habits Exposure to Tobacco Smoke : Other: never Smoking Status : Never smoker Tobacco 2A : No Tobacco Use/Currently Using : No Tobacco Use/Last 30 Days : No Tobacco Use/Last 12 months : No ROCIO WOLF [facility] - 01/06/2016 19:09 CARD PAINTER Caffeine Use Grid Caffeine Use : Current Type : Soft drinks Frequency : Daily ROCIO WOLF [facility] - 01/06/2016 19:09 CARD PAINTER [facility] Document Id: [id number] CARD PAINTER!51 PAINTER documented in this encounter Plan of Treatment Upcoming Encounters Date Type Specialty Care Team Description 08/17/2022 Procedure visit Neurology Marina Winter M.D., M.P.H. [address] [phone] (Wo rk) Scheduled Procedures Name Priority Associated Diagnoses Date/Time LIFT THIGH Excessive And Redundant Skin And Subcutaneous Tissue documented as of this encounter Visit Diagnoses Not on filedocumented in this encounter Additional Health Concerns Assessment Noted Time PHQ-9 Depression Total Score: 13 06/14/2015 3:56 PM CD T documented as of this encounter
--- OUTSIDE RECORDS SUMMARY | 2022-07-24 15:16 | XMS_ITS | Encounter Summary ---
:1985 Author Organization [facility] Address [address] [place] [address] Care Team Providers Name Role Phone Unavailable [...] 03/29/2020 relatives? How often do you attend anglican or gnosticist Never 07/04/2019 services? 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 as of this encounter Miscellaneous Notes Miscellaneous - Conversion, Historical Provider Ser - 10/18/2015 11:59 PM SURGICAL TRAINING SPECIALIST Coding Summary-Paper Based CODING DATE: 11/09/2015 FINAL [facility] STATUS: * Discharged to Home or Self Care PAYOR: Medicaid ADMIT DX: REASON FOR VISIT DX: FINAL DX: PRINCIPAL: R10.2 Pelvic and perineal pain SECONDARY: N89.8 Other specified noninflammatory disorders of vagina PROCEDURES DOCTOR NAME DATE NOTE: The code number assigned matches the documented diagnosis and / or procedure in the patient's chart. However, the narrative phrase printed from the coding software may appear abbreviated, or result in slightly different terminology. Coded By: JAE SON Date Saved: 11/09/2015 09:38 am Source: [facility] Document Id: [id number] documented in this encounter Plan of Treatment Upcoming Encounters Date Type Specialty Care Team Description 08/17/2022 Procedure visit Neurology Marina Winter M.D., M.P.H. [address] [phone] (Wo rk) Scheduled Procedures Name Priority Associated Diagnoses Date/Time LIFT THIGH Excessive And Redundant Skin And Subcutaneous Tissue documented as of this encounter Visit Diagnoses Not on filedocumented in this encounter Additional Health Concerns Assessment Noted Time PHQ-9 Depression Total Score: 13 06/14/2015 3:56 PM CD T documented as of this encounter
--- OUTSIDE RECORDS SUMMARY | 2022-07-24 15:16 | XMS_ITS | Encounter Summary ---
:1985 Author Organization [facility] Address [address] [place] [address] Care Team Providers Name Role Phone Unavailable Primary Care Provider Unavailable Encounter Details Date Type Department Care Team Description 04/07/2016 Hospital Encounter HX [facility] Nahun Tejeda M.D. [address] [place], [place] [phone] (Wo rk) Social History [...] How often do you attend mormon or restorationist Never 07/04/2019 services? 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 [address] [place] [phone] (Wo rk) Scheduled Procedures Name Priority Associated Diagnoses Date/Time LIFT THIGH Excessive And Redundant Skin And Subcutaneous Tissue documented as of this encounter Procedures Procedure Name Priority Date/Time Associated Comments Diagnosis URINALYSIS, ROUTINE Routine 04/07/2016 11:15 Resu lts for this AM CDT procedure are i n the results section. URINE MICROSCOPIC Routine 04/07/2016 11:15 Result s for this AM CDT procedure are i n the results section. BACTERIAL CULTURE, Routine 04/07/2016 11:15 Resul ts for this AEROBIC, URINE AM CDT procedure are in the results section. ABO GROUPING, B Routine 04/07/2016 11:07 Results for this AM CDT procedure are i n the results section. PROFILE II Routine 04/07/2016 11:07 Resu lts for this WITHOUT CBC, B/SERUM AM CDT procedu re are in the results section. HIV-1/-2 AG AND AB Routine 04/07/2016 11:07 Resul ts for this SCREEN AM CDT procedure are i n the results section. AUTOMATED Routine 04/07/2016 11:07 Results for this DIFFERENTIAL, B AM CDT procedure ar e in the results section. BHCG (BETA-HUMAN Routine 04/07/2016 11:07 Results for this CHORIONIC AM CDT procedure are i n GONADOTROPIN), SUSAN, the res ults S section. CBC WITH Routine 04/07/2016 11:07 Results for this DIFFERENTIAL, B AM CDT procedure ar e in the results section. ANTIBODY SCREEN, B Routine 04/07/2016 11:07 Resul ts for this AM CDT procedure are i n the results section. documented in this encounter Results (ABNORMAL) Urine Microscopic (04/07/2016 11:15 AM CDT) [facility] Method Time Signature HXUR WBC. None Seen None Seen POWERCHART HPF HXUR RBC. Occ-2 None Seen POWERCHART HPF Casts, Hyaline 1-3 (A) None Seen POWERCHART LPF Squamous 4-10 (A) None Seen POWERCHART Epithelial HPF HXUR Bacteria, Present (A) None Seen POWERCHART Specimen Anatomical Collection Method Collection Time Receive d Time (Source) Location / / Volume Laterality Urine, First 04/07/2016 11:15 04/07/2016 Voided AM CDT 11:15 AM CDT Nahun Tejeda M.D. LAB URINE ORDERABLES Performing Organization Address [facility]/ZIP Code Phon e Number POWERCHART (ABNORMAL) Urinalysis, Routine (04/07/2016 11:15 AM CDT) [facility] Method Time Signature HXUr Color Yellow Yellow POWERCHART Clarity Clear Clear POWERCHART Glucose Negative Negative POWERCHART HXBILIRUBIN Negative Negative POWERCHART Ketones, QL(U) Negative Negative POWERCHART Specific 1.026 1.001 - POWERCHART [place], POCT, U 1.035 pH, POCT, Urine 5.0 POWERCHART Protein, Ur, Dip Negative Negative POWERCHART Urobilinogen 0.2 0.2 MGDL POWERCHART HXNITRITE Negative Negative POWERCHART HXBLOOD Trace (A) Negative POWERCHART Leukocyte Negative Negative POWERCHART Esterase Specimen (Source) Anatomical Collection Method Collection Time Re ceived Time Location / / Volume Laterality Urine, First 04/07/2016 11:15 Voided AM CDT Nahun Tejeda M.D. LAB URINE ORDERABLES Performing Organization Address [facility] Code Phon e Number POWERCHART Bacterial Culture, Aerobic, Urine (04/07/2016 11:15 AM CDT) [facility] Method Time Signature Bacterial POWERCHART Culture, Aerobic, Urine HXFinal Mixed carmelo. No POWERCHART further studies unless notified. HXFinal [place] POWERCHART Microbiology laboratory [phone]. Specimen (Source) Anatomical Collection Method Collection Time Re ceived Time Location / / Volume Laterality Urine, First 04/07/2016 11:15 Voided AM CDT Comment: P Nahun Tejeda M.D. LAB MICROBIOLOGY - GENERAL O RDERABLES Performing Organization Address City/[facility] Code Phon e Number POWERCHART Antibody Screen (04/07/2016 11:07 AM CDT) athologist Signature Antibody Negative POWERCHART Screen Comment: Test Performed by: [address] [address] Lab oratory Director: Hardik G. Morice, II, M.D., Ph.D. Specimen (Source) Anatomical Collection Method Collection Time Re ceived Time Location / / Volume Laterality 04/07/2016 11:07 AM CDT Nahun Tejeda M.D. LAB BLOOD BANK TEST ORDERABL ES Performing Organization Address [facility] Phon e Number POWERCHART Grouping and Rh-Gallegos FLIP, see #[id number] (04/07/2016 11:07 AM CDT) Patholo gist Method Time Signature HX Grouping A Positive POWERCHART and Rh Specimen (Source) Anatomical Collection Method Collection Time Re ceived Time Location / / Volume Laterality 04/07/2016 11:07 AM CDT Nahun Tejeda M.D. LAB BLOOD BANK TEST ORDERABL ES Performing Organization Address [facility] Code Phon e Number POWERCHART Automated Differential (04/07/2016 11:07 AM CDT) P athologist Signature Absolute 5.13 1.70 - POWERCHART Neutrophils 7.00 109L Lymphocytes 2.04 0.90 - POWERCHART 2.90 X109L Monocytes 0.48 0.30 - POWERCHART 0.90 X109L Eosinophils 0.13 0.05 - POWERCHART 0.50 X109L Absolute 0.01 0.00 - POWERCHART Basophil 0.30 X109L Specimen Anatomical Collection Method Collection Time Receive d Time (Source) Location / / Volume Laterality Blood 04/07/2016 11:07 04/07/2016 AM CDT 11:07 AM CDT Nahun Tejeda M.D. LAB BLOOD ADD-ON Performing Organization Address City/[facility] Code Phon e Number POWERCHART CBC with Differential (04/07/2016 11:07 AM CDT) P athologist Signature Leukocytes 7.8 3.4 - 10.5 POWERCHART X109L Erythrocytes 4.37 3.90 - 5.03 POWERCHART [id number] Hemoglobin 13.1 12.0 - 15.5 POWERCHART GDL Hematocrit 37.3 34.9 - 44.5 POWERCHART MCV 85.4 82.0 - 98.0 POWERCHART FL HX RDW 13.2 11.9 - 15.5 POWERCHART Platelet Count 271 150 - 450 POWERCHART X109L Specimen (Source) Anatomical Collection Method Collection Time Re ceived Time Location / / Volume Laterality Blood 04/07/2016 11:07 AM CDT Nahun Tejeda M.D. LAB BLOOD ADD-ON Performing Organization Address City/[facility] Code Phon e Number POWERCHART Profile II without CBC/Serum (04/07/2016 11:07 AM CDT) P athologist Signature HBs Antigen, S Negative Negative POWERCHART Comment: Test Performed by: [facility] [place] [address] Medicare Coordinator: Hardik Burroughs II, M.D., Ph.D. Syphilis IgG Ab, S Negative Negative POWERCHART Comment: No serologic evidence of exposure to syp hilis. Test Performed by: [facility] [place] [address] Medicare Coordinator: Hardik Burroughs II, M.D., Ph.D. HX Rubella IgG-[place] Positive POWERCHART Comment: Results suggest response to immunization or prior exposure to the virus. REFERENCE VALUE------ Vaccinated: Positive (>=1.0 AI) Unvaccinated: Negative (<=0.7 AI) Rubella IgG Antibody Index 1.8 POW ERCHART Comment: Test Performed by: [facility] [place] [address] Medicare Coordinator: Hardik Burroughs II, M.D., Ph.D. Specimen (Source) Anatomical Collection Method Collection Time Re ceived Time Location / / Volume Laterality Blood 04/07/2016 11:07 AM CDT Nahun Tejeda M.D. LAB BLOOD NON ADD-ON Performing Organization Address City/[facility] Code Phon e Number POWERCHART HIV-1/-2 Ag and Ab Screen (04/07/2016 11:07 AM CDT) P athologist Signature HIV-1/-2 Negative Negative POWERCHART Antibody Comment: Negative result does not rule out HIV in fection. If acute HIV infection is suspected in a hi gh-risk individual, submit plasma specimen for H IV-1 RNA quantification test (HIVDQ) and/or HIV-2 DNA/RNA test (FHV2Q). Test Performed by: [place] [address] Medicare Coordinator: Hardik Burroughs II, M.D., Ph.D. Specimen (Source) Anatomical Collection Method Collection Time Re ceived Time Location / / Volume Laterality Blood 04/07/2016 11:07 AM CDT Nahun Tejeda M.D. LAB MICROBIOLOGY - BLOOD ORD ERABLES Performing Organization Address City/State/ZIP Code Phon e Number POWERCHART (ABNORMAL) bHCG (Beta-Human Chorionic Gonadotropin), Quantitative (04/07/2016 11:07 AM CDT) P athologist Signature Beta-HCG, 84.8 (H) <=4.9 IUL POWERCHART Quantitative, S Comment: [place]ita- and postmenopausal female s >40 years of age may have detectable hCG concentrations (<14 IU/L) due to pituita ry production of hCG. Specimen (Source) Anatomical Collection Method Collection Time Re ceived Time Location / / Volume Laterality Blood 04/07/2016 11:07 AM CDT Nahun Tejeda M.D. LAB BLOOD ADD-ON Performing Organization Address City/State/[facility] Code Phon e Number POWERCHART documented in this encounter Visit Diagnoses Not on filedocumented in this encounter Additional Health Concerns Assessment Noted Time PHQ-9 Depression Total Score: 13 06/14/2015 3:56 PM CD T documented as of this encounter
--- OUTSIDE RECORDS SUMMARY | 2022-07-24 15:16 | XMS_ITS | Encounter Summary ---
:1985 Author Organization [facility] Address [address] [place] [address] Care Team Providers Name Role Phone Unavailable Primary Care Provider Unavailable Encounter Details Date Type Department Care Team Description 01/10/2016 Hospital Encounter HX [facility] Emanuel Ha M.D. [address] [place] [address] (Wo jesica) Social History Tobacco Use Types Packs/Day Years [...] How often do you attend gnosticist or mosque Never 07/04/2019 services? 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 - 01/10/2016 3:10 PM CST [id number] Patient comes in with persistent cough. She was seen last week and it was thought to be more viral. She did package pick up the prescription for Zithromax, but she never took it. She thought it was bronchitis,but they said it was not at that time. There is an outside chance she could be . She has been coughing up some green phlegm. She has had fever and chills. She coughs at night, but it does not really keep her awake. The Tessalon Perles did not seem to help much. This has been going on for almost a week now. We reviewed her medication. We reviewed her allergies. VITAL SIGNS Per EMR. PHYSICAL EXAMINATION HEENT: Today, ears are clear bilaterally. There is some mild sinus pressure but that is probably from coughing. Throat is negative. No adenopathy in the neck. LUNGS: Coarse breath sounds noted more on the left side than the right side. IMPRESSION/REPORT/PLAN Cough, probable now bronchitis that is not resolving with conservative measures. PLAN: I did give her a prescription for stronger Zithromax and we discussed how she could use for Z-Chance that she has. I also recommended some cough medicine with codeine but warned her about side effects which could include constipation. She does not have any history of chemical dependency. She will contact her primary if this seems to worsen or not improve. To clarify, she has not started taking theantibiotic. Den Ha M.D./pepe Electronically Signed By: DEN HA MD On: 01/14/2016 11:27 AM Source: [facility] MHSDOLBEYNONRADSYS Document Id: [id number] MINER BLASTING documented in this encounter Miscellaneous Notes Telephone Encounter - Conversion, Historical Provider Ser - 03/06/2016 7:28 AM CDT *Phone Message Document Contains Addenda Addendum by JOAQUINA GRANDA CMA on March 06, 2016 11:06:50 CDT patient has been informed and transfered to make a lab appt. Addendum by MAILE ZARATE MD on March 06, 2016 10:05:36 CDT From: MAILE ZARATE MD To: [facility] 2W Nurse; Sent: 03/06/2016 10:05:36 CDT ! Subject: RE: *Phone Message I have ordered urine test which she can schedule as lab only. She should do her OB care with [facility] due to repeat C/S and Gestational diabetes. I think she has seen [facility] in the past. Addendum by JOAQUINA GRANDA CMA on March 06, 2016 09:38:21 CDT From: JOAQUINA GRANDA CMA ([facility] 2 Nurse) To: MAILE ZARATE MD; Sent: 03/06/2016 09:38:21 CDT ! Subject: FW: *Phone Message Nurse spoke with patient LMP 16 NIMA 11-07-16. Patient stated that she needs to have a prenancy test done [place] the [place]. Patient also stated that she will be at the clinic today for a different appt at 3. Patient would like to know does she need to have an appt or can a lab be ordered. please advise. From: YOLI RICH ([address] Production Dispatcher) To: [facility] 2 Nurse; Sent: 03/06/2016 07:28:28 CDT Subject: *Phone Message Caller is: ( x ) Patient ( ) Mother ( ) Father ( ) Spouse ( ) Daughter ( ) Son ( ) Pharmacy ( ) Other: Physician: jeyson Patient MRN #: Reason for Call: Message: patient calling- would like a prenancy test ordered- call her back at [phone] Advice/Action: Source used: ( ) Verbalizes understanding [...] back cell phone number ( ) Source: [facility] POWERCHART Document Id: [id number] Miscellaneous - Aure Polk R.N. 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 Temperature Oral : 36.9 DegC(Converted to: 98.4 DegF) Peripheral Pulse Rate : 72 /min Respiratory Rate : 18 /min Systolic Blood Pressure : 118 mmHg Diastolic Blood Pressure : 72 mmHg NIBP Mean : 87 mmHg BP Location : Right upper extremity Blood Pressure Cuff Size : Large Height : 164 cm(Converted to: 5 ft 5 inch(es), 65 inch(es)) Actual Weight : 135.9 kg(Converted to: 299 lb 10 oz) Dosing Weight Clinic : 135.9 kg Clinic BSA : 2.49 Body Mass Index : 50.53 kg/m2 AURE POLK LPN - 01/10/2016 15:35 SKIP [employer]ER BLASTING General Info Information Given By : Patient Preferred Communication Mode : Verbal Languages : [place] Citizen Is Patient Female and 13-50 no hysterectomy : Yes Status : Patient denies Are you ? : No AURE POLK LPN - 01/10/2016 15:35 SKIP [employer]ER [employer]ING Subjective Pain Symptoms : No AURE POLK LPN - 01/10/2016 15:35 SKIP [employer]ER [employer]ING Dependent Habits Exposure to Tobacco Smoke : Other: never Smoking Status : Never smoker Tobacco 2A : No Tobacco Use/Currently Using : No Tobacco Use/Last 30 Days : No Tobacco Use/Last 12 months : No AURE POLK LPN - 01/10/2016 15:35 SK[employer]ER [employer]ING Caffeine Use Grid Caffeine Use : Current Type : Soft drinks Frequency : Daily AURE POLK LPN - 01/10/2016 15:35 SKIP MINER BLASTING [facility] Document Id: [id number] SKIP MINER BLASTING!37 MINER BLASTING documented in this encounter Plan of Treatment Upcoming Encounters Date Type Specialty Care Team Description 08/17/2022 Procedure visit Neurology Marina Winter M.D., M.P.H. [address] [phone] (Wo rk) Scheduled Procedures Name Priority Associated Diagnoses Date/Time LIFT THIGH Excessive And Redundant Skin And Subcutaneous Tissue documented as of this encounter Visit Diagnoses Not on filedocumented in this encounter Additional Health Concerns Assessment Noted Time PHQ-9 Depression Total Score: 06/14/2015 3:56 PM CD T documented as of this encounter
--- OUTSIDE RECORDS SUMMARY | 2022-07-24 15:16 | XMS_ITS | Encounter Summary ---
:1985 Author Organization [facility] Address [address] [place] [address] Care Team Providers Name Role Phone Unavailable Primary Care Provider Unavailable Encounter Details Date Type Department Care Team Description 10/18/2015 Hospital Encounter [facility]X [facility] [...] How often do you attend religion or gnosticist Never 07/04/2019 services? 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 10:53 AM GROUP TESTER documented as of this encounter Last Filed Vital Signs Vital Sign Reading Time Taken Comments Blood Pressure 128/88 10/18/2015 10:37 AM GROUP TESTER Pulse 84 10/18/2015 10:37 AM GROUP TESTER Temperature - - Respiratory Rate 18 10/18/2015 10:37 AM GROUP TESTER Oxygen Saturation - - Inhaled Oxygen Concentration - - Weight 136 kg (298 lb 15.1 oz) 10/18/2015 10:37 AM GROUP TESTER Height 164 cm (5' 4.57) 10/18/2015 10:12 AM GROUP TESTER Body Mass Index 50.42 10/18/2015 10:12 AM GROUP TESTER documented in this encounter Progress Notes Pierre Bangura M.D. - 10/18/2015 10:11 AM CST [id number] CHIEF COMPLAINT/REASON FOR VISIT test, STD screening. HISTORY OF PRESENT ILLNESS This 30-year-old 4, para 3, AB 1 white female identifies an LMP at the expected time of 10/10/2015, indicating that it was somewhat heavier and shorter than her usual. She would like to have screening done as she is accepting of a . Additionally, she has had a bit of perivaginal pruritus and vaginal discharge with no malodor. Comprehensive STD screening is desired as the patient, although , states there may be infidelity. Active listening was undertaken in this regard. The patient has had some soreness of the right hand in the absence of any acute injury especially inthe region of the radial palm and 3rd finger base. She questions the possibility of arthritis. SYSTEMS REVIEW No other current acute cardiorespiratory, gastrointestinal, or genitourinary positive. MEDICATIONS As per EMR. ALLERGIES Negative. VITAL SIGNS As charted. PHYSICAL EXAMINATION GENERAL: Pleasant female in no acute distress. CARDIOVASCULAR: Regular. LUNGS: Clear. ABDOMEN: Obese. No acute tenderness, organomegaly or mass perceived inferior abdomen. PELVIC: Perivaginal tissue appears normal. On speculum insertion, a small amount of cream colored vaginal discharge is identified, not clearly outside physiologic norm. Nevertheless DMITRY/wet mount was collected along with GC/chlamydia sampling from the cervix which appeared normal. On bimanual exam, mild cervical motion tenderness was evident. Uterus not grossly enlarged with outline somewhat challenging to assess secondary to obesity. Adnexa clear. EXTREMITIES: Right hand normal to inspection. The patient does have some tenderness at the 3rd MP joint as well as the radial palm without other visible or palpable anomaly. IMPRESSION/REPORT/PLAN 1. Pelvic region discomfort as described with concern for low-grade pelvic inflammatory disease and without confirmation of vaginitis. Urinalysis is also suggestive of possible urinary tract infection. 2. Sexually transmitted disease screening. 3. Right hand pain with suspected strain. Rule out arthritic change. DIAGNOSTICS CBC is benign. C-reactive protein returns mildly elevated at 6.7. test is negative as is DMITRY/wet mount. Urinalysis does reveal mild pyuria, microscopic hematuria, as well as bacteria. Urine culture is requested. Pending studies include GC/chlamydia sample, HIV, syphilis serology, hepatitis Bsurface antigen, and hepatitis C screening. Ultimately advised planning a recheck urinalysis upon completion of treatment course mid cycle. Therapeutic awaiting remaining study results. Given the possibility of very early not detected today I elected to proceed with outpatient pelvic inflammatory disease treatment in the form of Rocephin 250 mg intramuscular and Zithromax as per EMR per protocol outlined in the Internet resource UpToDate. For the hand picture, relative rest, local heat, and nonsteroidal as directed. Especially as the patient is accepting of a also have recommended the vitamin. Pierre Bangura M.D./pepe Electronically Signed By: PIERRE BANGURA MD On: 10/18/2015 05:23 PM Source: [facility] MHSDOLBEY[facility]icky Document Id: [id number] P TESTER documented in this encounter Miscellaneous Notes Erickacellaneous - Pierre Bangura M.D. - 10/20/2015 8:35 AM CST From: PIERRE BANGURA MD To: NANCY PHILLIPS Sent: 10/20/2015 08:35:49 GROUP TESTER I am pleased to report that your results from the following diagnostic test(s) are normal hepatitis c screen. If you have questions or concerns, please do not hesitate to call our office. Results: Date Result Name Value Ref Range 10/18/2015 11:43 HepC RNA PCR [facility] Undetected IntU/ml (Undetected - ) Source: [facility] POWERCHART Document Id: [id number] Electronically signed by [facility] Sterile Processing Technologist [id number] at 04/02/2017 5:51 PM CDT Erickacellaneous - Pierre Bangura M.D. - 10/19/2015 9:00 PM CST From: PIERRE BANGURA MD To: NANCY PHILLIPS Sent: 10/19/2015 21:00:27 GROUP TESTER I am pleased to report that your results from the following diagnostic test(s) are normal - gonorrhea and chlamydia. If you have questions or concerns, please do not hesitate to call our office. Source: [facility] Lapio Document Id: [id number] Electronically signed by Conversion, [facility] Sterile Processing Technologist [id number] at 04/02/2017 5:51 PM CDT Pierre Shea M.D. - 10/19/2015 8:57 PM CST From: PIERRE BANGURA MD To: NANCY PHILLIPS Sent: 10/19/2015 20:57:15 GROUP TESTER I am pleased to report that your results from the following diagnostic test(s) are normal - urine culture. If you have questions or concerns, please do not hesitate to call our office. Source: [employer] Fun Document Id: [id number] Electronically signed by Conversion, [facility] Sterile Processing Technologist [id number] at 04/02/2017 5:51 PM CDT Pierre Shea M.D. - 10/19/2015 9:04 AM CST From: PIERRE BANGURA MD To: NANCY PHILLIPS Sent: 10/19/2015 09:04:41 GROUP TESTER I am pleased to report that your results from the following diagnostic test(s) are normal. If you have questions or concerns, please do not hesitate to call our office. Results: Date Result Name Value Ref Range 10/18/2015 11:43 HIV 1/2 Ab and Ag [facility] Negative (Negative - ) Source: [facility] Lapio Document Id: [id number] Electronically signed by Conversion, [facility] Sterile Processing Technologist [id number] at 04/02/2017 5:51 PM CDT Peirre Shea M.D. - 10/19/2015 8:01 AM CST From: PIERRE BANGURA MD To: NANCY PHILLIPS Sent: 10/19/2015 08:01:11 GROUP TESTER I am pleased to report that your results from the following diagnostic test(s) are normal. If you have questions or concerns, please do not hesitate to call our office. Results: Date Result Name Value 10/18/2015 11:43 Hep Bs Ag Interp Negative Source: [facility] POWERCHART Document Id: [id number] Electronically signed by Conversion, [facility] Sterile Processing Technologist [id number] at 04/02/2017 5:51 PM CDT Pierre Shea M.D. - 10/18/2015 1:46 PM CST From: PIERRE BANGURA MD ( Same Day Provider) To: NANCY PHILLIPS Sent: 10/18/2015 13:46:35 GROUP TESTER I am pleased to report that your results from the following diagnostic test(s) are normal - right hand x ray. If you have questions or concerns, please do not hesitate to call our office. Source: [facility] DocDepCHART Document Id: [id number] Electronically signed by Conversion, [facility] Sterile Processing Technologist [id number] at 04/02/2017 5:51 PM CDT Pierre Shea M.D. - 10/18/2015 10:57 AM CST Ambulatory Patient Summary [facility] [address] [place], [place] [phone] Visit Information Name: NANCY PHILLIPS [facility] Number: [id number] Current Date: 10/18/2015 10:57:49 Physicians Attending Provider: PIERRE BANGURA MD Primary Care Provider: LEXII MINOR PA-C NANCY PHILLIPS has been given the following [...] Take Indications/Special Instructions/Comments/Notes for Patient Medication Changes/Routing *hydrOXYzine (Vistaril 25 mg oral capsule) 1 cap, Oral, four times a day as needed for Migraine headache *naproxen (Naprosyn 500 mg oral tablet) 1 Tablet(s), Oral, two times a day with meals as needed for pain and headaches will call when refill needed *rizatriptan (Maxalt 5 mg oral tablet) 1 Tablet(s), Oral, once a day as needed for Migraine headachemay repeat dose once in 2 hours venlafaxine [...] the Following Medications: Medication list as of 10-18-15 10:57 Attention: If you have any medications at [...] Electronically Signed By: PIERRE BANGURA MD Signed On:18-OCT-2015 10:57:43 Your Allergies & Intolerances Substance Reaction Symptoms [...] if you dont have one. Go to [email or web address] and click on Create Your Account. Then, follow the directions to complete the online form. Youll be asked for your [facility] number which you can find at the top of this document. Your Goals/Additional instructions: Source: [facility] Lapio Document Id: [id number] P TESTER Miscellaneous - Pierre Bangura M.D. - 10/18/2015 10:57 AM CST Ambulatory Discharge Medication List [facility] [address] [place] [id number] Visit Information Name: NANCY PHILLIPS [facility] Number: [id number] Visit Date: 10/18/2015 10:57:47 Attending Provider: PIERRE BANGURA MD Primary Care Provider: LEXII MINOR PA-C NANCY PHILLIPS has been given the following list of medications: Your Medications It is important to take your medications as directed. Use a pill box or chart to help remind you to take your medications. Please let your doctor or nurse know if you have problems taking your medications. Medication/Strength How to Take Indications/Special Instructions/Comments/Notes for Patient Medication Changes/Routing *hydrOXYzine (Vistaril 25 mg oral capsule) 1 cap, Oral, four times a day as needed for Migraine headache *naproxen (Naprosyn 500 mg oral tablet) 1 Tablet(s), Oral, two times a day with meals as needed for pain and headaches will call when refill needed *rizatriptan (Maxalt 5 mg oral tablet) 1 Tablet(s), Oral, once a day as needed for Migraine headachemay repeat dose once in 2 hours venlafaxine [...] the Following Medications: Medication list as of 10-18-15 10:57 Attention: If you have any medications at [...] Electronically Signed By: PIERRE BANGURA MD Signed On:18-OCT-2015 10:57:43 Additional Information: Source: 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/History Entered On: 10/18/2015 10:40 GROUP TESTER Performed On: 10/18/2015 10:37 GROUP TESTER by MAGO GIORDANO LPN Intake Chief Complaint : test, STD check Onset of Symptoms : month LMP Date : 09/09/15 Ambulatory Intake Additional Information : had one day of bleeding on the 10 of october Temperature Oral : 36.8 DegC(Converted to: 98.2 DegF) Peripheral Pulse Rate : 84 /min Respiratory Rate : 18 /min Heart Rhythm : Regular Systolic Blood Pressure : 128 mmHg Diastolic Blood Pressure : 88 mmHg NIBP Mean : 101 mmHg BP Location : Right upper extremity Blood Pressure Cuff Size : Large Actual Weight : 135.6 kg(Converted to: 298 lb 15 oz) Weight Source : Standing scale Dosing Weight Clinic : 135.6 kg MAGO GIORDANO LPN - 10/18/2015 10:37 GROUP TESTER General Info Information Given By : Patient Preferred Communication Mode : Verbal Languages : Syriac Is Patient Female and 13-50 no hysterectomy : Yes Status : Possible unconfirmed Are you ? : No MODESTO GIORDANOJUAN Olguin [facility] - 10/18/2015 10:37 GROUP TESTER Subjective Pain Symptoms : No MODESTO GIORDANOJUAN Olguin [facility] - 10/18/2015 10:37 GROUP TESTER Dependent Habits Exposure to Tobacco Smoke : Other: never Smoking Status : Never smoker Tobacco 2A : No MODESTO GIORDANOJUAN Olguin [facility] - 10/18/2015 10:37 GROUP TESTER Caffeine Use Grid Caffeine Use : Current Type : Soft drinks Frequency : Daily CHRISTIANASHANNA HIGGINSIANJUAN Olguin [facility] - 10/18/2015 10:37 GROUP TESTER Source: [facility] DocDepCHART Document Id: [id number] GROUP TESTER!36 P TESTER documented in this encounter Plan of Treatment Upcoming Encounters Date Type Specialty Care Team Description 08/17/2022 Procedure visit Neurology Marina Winter M.D., M.P.H[facility] [address] [place] [address] [phone] (Wo rk) Scheduled Procedures Name Priority Associated Diagnoses Date/Time LIFT THIGH Excessive And Redundant Skin And Subcutaneous Tissue documented as of this encounter Procedures Procedure Name Priority Date/Time Associated Comments Diagnosis BACTERIAL CULTURE, Routine 10/18/2015 4:18 PM Res ults for this AEROBIC, URINE GROUP TESTER procedure are in the results section. DX HAND RIGHT 3+ Routine 10/18/2015 11:51 Results for this VIEWS AM GROUP TESTER procedure are i n the results section. HIV-1/-2 AG AND AB Routine 10/18/2015 11:43 Resul ts for this SCREEN AM GROUP TESTER procedure are i n the results section. HCV RNA DETECT/QUANT Routine 10/18/2015 11:43 Res ults for this AM GROUP TESTER procedure are i n the results section. AUTOMATED Routine 10/18/2015 11:43 Results for this DIFFERENTIAL, B AM GROUP TESTER procedure ar e in the results section. HEPATITIS B SURFACE Routine 10/18/2015 11:43 Resu lts for this ANTIGEN AM GROUP TESTER procedure are i n the results section. CBC WITH Routine 10/18/2015 11:43 Results for this DIFFERENTIAL, B AM GROUP TESTER procedure ar e in the results section. C-REACTIVE PROTEIN Routine 10/18/2015 11:43 Resul ts for this (CRP), S/P AM GROUP TESTER procedure are i n the results section. WET PREP EXAM, Routine 10/18/2015 11:30 Results f or this UROGENITAL AM GROUP TESTER procedure are i n the results section. HXUR % DYSMORPHIC RBC Routine 10/18/2015 11:26 Re sults for this AM GROUP TESTER procedure are i n the results section. URINALYSIS, ROUTINE Routine 10/18/2015 11:26 Resu lts for this AM GROUP TESTER procedure are i n the results section. URINE MICROSCOPIC Routine 10/18/2015 11:26 Result s for this AM GROUP TESTER procedure are i n the results section. CHLAMYDIA/GONORRHOEAE Routine 10/18/2015 11:23 Re sults for this AMPLIFIED RNA AM GROUP TESTER procedure are in the results section. CHLAMYDIA TRACHOMATIS Routine 10/18/2015 11:23 Re sults for this AMPLIFIED RNA AM GROUP TESTER procedure are in the results section. TEST, U Routine 10/18/2015 11:20 Result s for this AM GROUP TESTER procedure are i n the results section. documented in this encounter Results Bacterial Culture, Aerobic, Urine (10/18/2015 4:18 PM GROUP TESTER) [facility] Method Time Signature Bacterial POWERCHART Culture, Aerobic, Urine [facility] Mixed carmelo. No POWERCHART further studies unless notified. [facility] POWERCHART Microbiology laboratory [phone]. Specimen (Source) Anatomical Collection Method Collection Time Re ceived Time Location / / Volume Laterality Urine, First 10/18/2015 4:18 PM Voided GROUP TESTER Pierre Bangura M.D. LAB MICROBIOLOGY - GENERAL O RDERABLES Performing Organization Address City/State/ZIP Code Phon e Number POWERCHART DX Hand Right 3+ Views (10/18/2015 11:51 AM GROUP TESTER) Anatomical Region Laterality Modality Upper Extremity, Hand Right Radiographic Imagi ng Specimen (Source) Anatomical Collection Method Collection Time Re ceived Time Location / / Volume Laterality 10/18/2015 11:51 AM GROUP TESTER Addenda Addendum by Provider, Ella Moreno 10/18/2015 11:51 AM GROUP TESTER RAD^^^OW XR Hand Right 3 or more views 10/18/2015 11:51:55 Impressions 10/18/2015 12:16 PM GROUP TESTER Negative. Narrative 10/18/2015 12:16 PM GROUP TESTER EXAM: XR Hand Right 3 or more views INDICATION: pain 3rd finger and radial p basilio AGE: 30 years-old COMPARISON: None. FINDINGS: No acute fracture or subluxati on. No degenerative joint disease. Procedure Note Dilshad Faustin M.D. / ProviderJosh M.D. - 03/15/2017 EXAM: XR Hand Right 3 or more views INDICATION: pain 3rd finger and radial p basilio AGE: 30 years-old COMPARISON: None. FINDINGS: No acute fracture or subluxati on. No degenerative joint disease. IMPRESSION: Negative. Jessica DangTRodrigo(R), RRodrigoTRodrigo(R)(M) IMG DIAGNOSTIC IM AGING PROCEDURES Automated Differential (10/18/2015 11:43 AM GROUP TESTER) athologist Signature Absolute 5.18 1.70 - POWERCHART Neutrophils 7.00 109L Lymphocytes 2.52 0.90 - POWERCHART 2.90 X109L Monocytes 0.62 0.30 - POWERCHART 0.90 X109L Eosinophils 0.13 0.05 - POWERCHART 0.50 X109L Absolute 0.01 0.00 - POWERCHART Basophil 0.30 X109L Specimen Anatomical Collection Method Collection Time Receive d Time (Source) Location / / Volume Laterality Blood 10/18/2015 11:43 10/18/2015 AM GROUP TESTER 11:43 AM GROUP TESTER Pierre Bangura M.D. LAB BLOOD ADD-ON Performing Organization Address City/State/ZIP Code Phon e Number POWERCHART CBC with Differential (10/18/2015 11:43 AM GROUP TESTER) athologist Signature Leukocytes 8.5 3.4 - 10.5 POWERCHART X109L Erythrocytes 4.97 3.90 - 5.03 POWERCHART [id number] Hemoglobin 14.3 12.0 - 15.5 POWERCHART GDL Hematocrit 43.0 34.9 - 44.5 POWERCHART MCV 86.5 82.0 - 98.0 POWERCHART FL HX RDW 13.2 11.9 - 15.5 POWERCHART Platelet Count 286 150 - 450 POWERCHART X109L Specimen (Source) Anatomical Collection Method Collection Time Re ceived Time Location / / Volume Laterality Blood 10/18/2015 11:43 AM GROUP TESTER Pierre Bangura M.D. LAB BLOOD ADD-ON Performing Organization Address City/[facility]/ZIP Code Phon e Number POWERCHART (ABNORMAL) CRP (C-Reactive Protein) (10/18/2015 11:43 AM GROUP TESTER) P athologist Signature C-Reactive 6.7 (H) <=5.0 MGL POWERCHART Protein (CRP), S Specimen (Source) Anatomical Collection Method Collection Time Re ceived Time Location / / Volume Laterality Blood 10/18/2015 11:43 AM GROUP TESTER Pierre Bangura M.D. LAB BLOOD ADD-ON Performing Organization Address [facility] Code Phon e Number POWERCHART HCV RNA Detect / Quant (10/18/2015 11:43 AM GROUP TESTER) Patholo gist Method Time Signature HCV RNA Undetected Undetected POWERCHART Detect/Quant, INTUML S Comment: Result in log IU/mL is Undetected. ADDITIONAL INFORMATIO N The quantification range of this assay i s 15 to 100,000,000 IU/mL (1.18 log to 8.00 log IU/mL). Test ing was performed by the NAT[employer]IE AmpliPrep/NATALIE TaqMan HCV Test, version 2.0 ([employer] Test Performed by: [place] [address] Rn Acute: Hardik Burroughs II, M.D., Ph.D. Specimen (Source) Anatomical Collection Method Collection Time Re ceived Time Location / / Volume Laterality Blood 10/18/2015 11:43 AM GROUP TESTER Pierre Bangura M.D. LAB MICROBIOLOGY - BLOOD ORD ERABLES Performing Organization Address City/[facility]/ZIP Code Phon e Number POWERCHART Hepatitis B Surface Antigen (10/18/2015 11:43 AM GROUP TESTER) Analysis Performed At Patho logist Time Signature Interpretation Negative POWERCHART Specimen (Source) Anatomical Collection Method Collection Time Re ceived Time Location / / Volume Laterality Blood 10/18/2015 11:43 AM GROUP TESTER Pierre Bangura M.D. LAB MICROBIOLOGY - BLOOD ORD ERABLES Performing Organization Address City/[facility]/ZIP Code Phon e Number POWERCHART HIV-1/-2 Ag and Ab Screen (10/18/2015 11:43 AM GROUP TESTER) athologist Signature HIV-1/-2 Negative Negative POWERCHART Antibody Comment: Negative result does not rule out HIV in fection. If acute HIV infection is suspected in a hi gh-risk individual, submit plasma specimen for H IV-1 RNA quantification test (HIVDQ) and/or HIV-2 DNA/RNA test (FHV2Q). Test Performed by: [place] [address] Rn Acute: Hardik Burroughs II, M.D., Ph.D. Specimen (Source) Anatomical Collection Method Collection Time Re ceived Time Location / / Volume Laterality Blood 10/18/2015 11:43 AM GROUP TESTER Pierre Bangura M.D. LAB MICROBIOLOGY - BLOOD ORD ERABLES Performing Organization Address [facility] Code Phon e Number POWERCHART Wet Prep Exam, Urogenital (10/18/2015 11:30 AM GROUP TESTER) athologist Signature HXWet Prep POWERCHART HXFinal No yeast, POWERCHART Trichomonas , clue cells, or sperm seen. Specimen (Source) Anatomical Collection Method Collection Time Re ceived Time Location / / Volume Laterality Vagina 10/18/2015 11:30 AM GROUP TESTER Pierre Bangura M.D. LAB MICROBIOLOGY - GENERAL O RDERABLES Performing Organization Address City/[facility]/ZIP Code Phon e Number POWERCHART HXUR % DYSMORPHIC RBC (10/18/2015 11:26 AM GROUP TESTER) athologist Signature Dysmorphic RBC <=25 <=25 POWERCHART Specimen Anatomical Collection Method Collection Time Receive d Time (Source) Location / / Volume Laterality Urine, First 10/18/2015 11:26 10/18/2015 Voided AM GROUP TESTER 11:26 AM GROUP TESTER Pierre Bangura M.D. LAB HISTORICAL ORDERS Performing Organization Address City/[facility]/ZIP Code Phon e Number POWERCHART (ABNORMAL) Urine Microscopic (10/18/2015 11:26 AM GROUP TESTER) [facility] Method Time Signature HXUR WBC. 11-20 (A) None Seen POWERCHART HPF HXUR RBC. 3-10 (A) None Seen POWERCHART HPF HXUR Bacteria, Present (A) None Seen POWERCHART Squamous 31-40 (A) None Seen POWERCHART Epithelial HPF Specimen Anatomical Collection Method Collection Time Receive d Time (Source) Location / / Volume Laterality Urine, First 10/18/2015 11:26 10/18/2015 Voided AM GROUP TESTER 11:26 AM GROUP TESTER Pierre Bangura M.D. LAB URINE ORDERABLES Performing Organization Address City/[facility]/ZIP Code Phon e Number POWERCHART (ABNORMAL) Urinalysis, Routine (10/18/2015 11:26 AM GROUP TESTER) [facility] Method Time Signature HXUr Color Yellow Colorless POWERCHART Clarity Slightly Clear POWERCHART Cloudy (A) Glucose Negative Negative POWERCHART MGDL HXBILIRUBIN Negative Negative POWERCHART Ketones, QL(U) Negative Negative POWERCHART MGDL Specific 1.020 POWERCHART [place], POCT, U pH, POCT, Urine 5.0 POWERCHART Protein, Ur, Negative Negative POWERCHART Dip MGDL Urobilinogen 0.2 0.2 MGDL POWERCHART HXNITRITE Negative Negative POWERCHART HXBLOOD Small (A) Negative POWERCHART Leukocyte Small (A) Negative POWERCHART Esterase Specimen (Source) Anatomical Collection Method Collection Time Re ceived Time Location / / Volume Laterality Urine, First 10/18/2015 11:26 Voided AM GROUP TESTER Pierre Bangura M.D. LAB URINE ORDERABLES Performing Organization Address City/State/ZIP Code Phon e Number POWERCHART Chlamydia / Gonorrhoeae Amplified RNA (10/18/2015 11:23 AM GROUP TESTER) Component Value Ref Test Analysis Performed At [facility] 3Leaf Method Time Signature HX GC by Nucleic POWERCHART Acid Amplification HXFinal Negative for POWERCHART Neisseria gonorrhea by RNA amplification . HXFinal Reference: POWERCHART Negative HXFinal If you POWERCHART submitted a female urine sample, please note it is a Laboratory Developed Test. Specimen (Source) Anatomical Collection Method Collection Time Re ceived Time Location / / Volume Laterality Cervix/Endocervix 10/18/2015 11:23 AM GROUP TESTER Pierre Bangura M.D. LAB MICROBIOLOGY - GENERAL O CLARISSA Performing Organization Address City/[facility]/ZIP Code Phon e Number POWERCHART Chlamydia Trachomatis Amplified RNA (10/18/2015 11:23 AM GROUP TESTER) Component Value Ref Test Analysis Performed At [facility] Range Method Time Signature HXChlamydia by POWERCHART Nucleic Acid Amplification HXFinal Negative for POWERCHART Chlamydia trachomatis by RNA amplification. HXFinal Reference: POWERCHART Negative HXFinal If you POWERCHART submitted a female urine sample, please note it is a Laboratory Developed Test. Specimen (Source) Anatomical Collection Method Collection Time Re ceived Time Location / / Volume Laterality Cervix/Endocervix 10/18/2015 11:23 AM GROUP TESTER Pierre Bangura M.D. LAB MICROBIOLOGY - GENERAL O RDERAMARILYN Performing Organization Address City/[facility]/ZIP Code Phon e Number POWERCHART Test, Qualitative, Urine (10/18/2015 11:20 AM GROUP TESTER) [facility] Method Time Signature HXBeta-hCG Negative POWERCHART Qualitative Urine Specimen (Source) Anatomical Collection Method Collection Time Re ceived Time Location / / Volume Laterality Urine 10/18/2015 11:20 AM GROUP TESTER Pierre Bangura M.D. LAB URINE ORDERABLES Performing Organization Address City/State/ZIP Code Phon e Number POWERCHART documented in this encounter Visit Diagnoses Not on filedocumented in this encounter Additional Health Concerns Assessment Noted Time PHQ-9 Depression Total Score: 13 06/14/2015 3:56 PM CD T documented as of this encounter
--- OUTSIDE RECORDS SUMMARY | 2022-07-24 15:16 | XMS_ITS | Encounter Summary ---
:1985 Author Organization [facility] Address [address] [place] [address] Care Team Providers Name Role Phone Unavailable Primary Care Provider Unavailable Encounter Details Date Type Department Care Team Description 04/20/2016 Hospital Encounter HX [facility] Promise Rouse M.D. [address] [place], [place] [phone] (Wo rk) Social History [...] How often do you attend alevism or scientology Never 07/04/2019 services? 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 - 04/20/2016 1:50 PM CDT Chief complaint: Initiate OB care. HISTORY OF PRESENT ILLNESS The patient presents with a positive test to establish OB care. She is experiencing some of the usual signs of like breast tenderness, nausea, and fatigue. No signs of bleeding nor cramping. Her prior obstetrical history includes three previous c-sections. CURRENT MEDICATIONS and ALLERGIES have been reviewed and are current as of this date. SYSTEMS REVIEW She is experiencing normal bowel and bladder habits. She is not currently experiencing symptoms of pelvic pain nor unusual vaginal bleeding. No fevers nor chills. PAST MEDICAL/SURGICAL HISTORY: noncontributory for this SOCIAL HISTORY: Smoking no Alcohol no Drugs no Family History Non contributory. Vital signs, were reviewed and are current in the EMR as of today's date. Weight is documented on the ACOG form. PHYSICAL EXAMINATION GENERAL: She is alert and oriented x3. Appears in no acute distress. CV: Regular rate and rythm LUNGS: clear to auscultation VITAL SIGNS: afebrile and normotensive ABDOMEN: non tender, no masses palpated. Fundal height, size=dates. EXTREMITIES: no edema or swelling. No cyanosis nor clubbing. PELVIC: Lymph nodes are negative bilaterally. Normal external genitalia. Bartholin, urethral, and Skenes glands are normal. Cervix is long, thick, and closed. No cervical pathology is noted. A GC/Chlamydia swab was sent to the lab for review. HEART RATE: normal range Separately dictated is a transvaginal ultrasound which documents a single viable intrauterine . Initial OB labs are pending at time of this dictation. Ms. Conti was present and assisted/chaperoned the exam. Impression/Report/Plan: New OB Visit, with confirmed EDC of good accuracy. Recommendation is to take a multivitamin supplement containing 0.4mg of folate daily. Screening for genetic disorders may be undertaken if concern exists based on familial or age-related risk factors. Some of the dietary and environmental exposure guidelines reviewed include: Fish/sushi: good to eat in moderation but not shark, swordfish, alabcore tuna, tilefish, reba maceral, or whale. Supplements: Nothing besides a vitamin unless the patient has special needs. There is no good evidence that taking extra Vitamin D or omega-3 fatty acids is beneficial. A standard vitamin with iron satifies the daily requirments of most women. Cheese/meats: Although Listeriosis is rare, the common recommendation is to avoid unpasturized cheese or milk, refrigerated pates, meat spreads, or smoked seafood. Caffeine: okay in moderation. Alcohol: there is no acceptable safe level in . Smoking: avoid smoking and/or stop if you are . Hot tubs: avoid in the first trimester. Exercise: 30 minutes per day is beneficial. Hair dye: is okay in . Exercise is part of a healthy lifestyle before, during, and after . Exercise during has minimal risks and demonstrated benefits for most women, including maintenance or improvement of physical fitness, control of gestational weight gain, reduction in low back pain, and possibly a reduction in risk of developing gestational diabetes. Moderate exercise is not a direct cause of any adverse outcome; however, women may be at greater risk of injuries to joints, falling, and significant abdominal trauma during exercise. Abdominal trauma can result in placental abruption, so contact sports are a concern in . For most healthy women, moderate intensity exercise (able to carry on a normal conversation during exercise) that includes aerobic exercise andstrength training, can be performed for 30 minutes daily, 5 to 7 days per week. Previously sedentarywomen should begin with 15 minutes of continuous low-intensity exercise 3 times per week, increasingthe intensity, frequency, and duration gradually. Physically-active women can engage in moderate to vigorous physical activity. They should strive to maintain a good fitness level throughout without trying to reach their peak fitness level or train for athletic competition. women should continue wearing three-point seat belts during . The lap belt is placed across the hips and below the uterus. We plan monthly follow up visits until 28 weeks gestation, and then twice monthly until 36 weeks. A anatomy survery will be scheduled at 20 weeks gestation. A one-hour glucose test will be performed between 24 and 28 weeks. CC: Labor and Delivery Electronically Signed By: SHAR TEJEDA MD On: 04/20/2016 01:51 PM Source: [facility] POWERCHART Document Id: [id number] documented in this encounter Nursing Notes Shar Tejeda M.D. - 04/20/2016 1:15 PM CDT Ambulatory Patient Education The following Patient Education Materials have been given to the patient: Patient Education Materials: Audio Technician Adapting to : First Trimester Audio Technician Adapting to : First Trimester As your body adjusts, you may have to change or limit your daily activities. Youll need more rest. You may also need to use the energy you have more wisely. Eat stomach-friendly foods like cottage cheese, crackers, or bread throughout the day. Your Changing Body Almost every part of your body is affected as you adapt to . The uterus and cervix will begin to soften right away. You may not look very during the first three months. But you are likely to have some common signs of early : ?? Nausea ?? Fatigue ?? Frequent urination ?? Mood swings ?? Bloating of the abdomen ?? Missed or light periods (first trimester bleeding) ?? Nipple or breast tenderness, breast swelling Its Not Too Late to Start Good Habits What matters most is protecting your baby from this moment on. If you smoke, drink alcohol, or use drugs, now is the time to stop. If you need help, talk with your health care provider. ?? Smoking increases the risk of stillbirth or having a wdp-aoive-gaazet baby. If you smoke, quit now. ?? Alcohol and drugs have been linked with miscarriage, defects, intellectual disability, and low weight. Do not drink alcohol or take drugs. Tips to Relieve Nausea Although nausea can occur at any time of the day, it may be worse in the morning. To help prevent nausea: ?? Eat small, light meals at frequent intervals. ?? Get up slowly. Eat a few unsalted crackers before you get out of bed. ?? Drink water with lemon slices. ?? Eat an ice pop in your favorite flavor. ?? Ask your health care provider about taking jia or vitamin B6 for nausea and vomiting. ?? Talk with your health care provider if you take vitamins that upset your stomach. Work Concerns The end of the first trimester is a good time to discuss working during with your employer. Follow your health care providers advice if your job requires you to stand for a long time, work with hazardous tools, or even sit at a desk all day. Your workspace, workload, or scheduled hours may need to be adjusted. Perhaps you can change body postures more often or take an extra break. Advice for Travel Talk to your health care provider first, but the second trimester may be the best time for any travel. You may be advised to avoid certain trips while youre . Food and water can be concerns in developing countries. Travel by car is a good choice, as you can stop, get out, and stretch. Bring snacks and water along. Fasten the lap belt below your belly, low over your hips. Also be sure to wear the shoulder harness. Intimacy Unless your health care provider tells you to, there is no reason to stop having sex while youre . You or your partner may notice changes in desire. Desire may be less in the first trimester, due to nausea and fatigue. In the second trimester, sex may be very enjoyable. The third trimester canbe a challenge comfort-ventura. Try different positions and see whats best for you both. ?? [id number] [facility], [address] [place] [address], [place] [address]. All rights reserved. This information is not intended as a substitute for professional medical care. Always follow your healthcare professional's instructions. This document has images extracted. Please consider using [employer] for all your patient education needs. Source: [facility] POWERCHART Document Id: [id number] documented in this encounter Miscellaneous Notes Miscellaneous - Laverne Conti, L.P.N. - 04/20/2016 1:50 PM CDT Sheet Metal Worker Maintenance Documentation Sheet Metal Worker Maintenance Documentation Entered On: 04/20/2016 13:51 CDT Performed On: 04/20/2016 13:50 CDT by LAVERNE CONTI LPN Sheet Metal Worker Maintenance Documentation Exam/Procedure Performed : NOB cervical check CD Sheet Metal Worker Maintenance Present : Yes CD Sheet Metal Worker Maintenance Name : Lois Present in Room During Exam/Procedure : Alone LAVERNE CONTI LPN - 04/20/2016 13:50 CDT Source: [facility] Document Id: [id number] CDT!6 Miscellaneous - Laverne Conti L.PRodrigoNRodrigo - 04/20/2016 1:19 PM CDT Adult Hide And Skin Processing Worker Intake/History Adult Hide And Skin Processing Worker Intake/History Entered On: 04/20/2016 13:21 CDT Performed On: 04/20/2016 13:19 CDT by LAVERNE CONTI TRANSFORMATION ANALYST Intake Actual Weight : 136.2 kg(Converted to: 300 lb 4 oz) Dosing Weight Clinic : 136.2 kg Clinic BSA : 2.49 Body Mass Index : 50.64 kg/m2 [facility] - 04/20/2016 13:23 CDT Chief Complaint : NOB Systolic Blood Pressure : 126 mmHg Diastolic Blood Pressure : 70 mmHg NIBP Mean : 89 mmHg BP Location : Left upper extremity Blood Pressure Cuff Size : Large Height : 164 cm(Converted to: 5 ft 5 inch(es), 65 inch(es)) [facility] - 04/20/2016 13:19 CDT General Info Languages : Peruvian Is Patient Female and 13-50 no hysterectomy : No [facility] - 04/20/2016 13:19 CDT Subjective Pain Symptoms : No [facility] - 04/20/2016 13:19 CDT Dependent Habits Exposure to Tobacco Smoke : Other: never Smoking Status : Never smoker Tobacco 2A : No Tobacco Use/Currently Using : No Tobacco Use/Last 30 Days : No Tobacco Use/Last 12 months : No [facility] - 04/20/2016 13:19 CDT Caffeine Use Grid Caffeine Use : Current Type : Soft drinks Frequency : Daily Amount : regular 1-2 cans daily [facility] - 04/20/2016 13:19 CDT Source: [employer] Document Id: [id number] CDT!6 Shar Salamanca M.D. - 04/20/2016 1:15 PM CDT Ambulatory Discharge Medication List [facility] [address] [place] [phone] Visit Information Name: NANCY PHILLIPS [facility] Number: [id number] Visit Date: 04/20/2016 13:15:41 Attending Provider: SHAR TEJEDA MD Primary Care [...] 2-5, Oral, as directed x 5 day(s) multivitamin, ( Multivitamins) 1 TAB, Oral, once a day Stop Taking the Following Medications: Medication list as of 04-20-16 13:15 Attention: If you have any medications at [...] Electronically Signed By: SHAR TEJEDA MD Signed On:20-APR-2016 13:15:28 Additional Information: Source: [facility] POWERCHART Document Id: [id number] IDEAT Shar Salamanca M.D. - 04/20/2016 1:15 PM CDT Ambulatory Patient Summary [facility] [address] [place] [phone] Visit Information Name: NANCY PHILLIPS [facility] Number: [id number] Current Date: 04/20/2016 13:15:42 Physicians Attending Provider: SHAR TEJEDA MD Primary [...] 2-5, Oral, as directed x 5 day(s) multivitamin, ( Multivitamins) 1 TAB, Oral, once a day Stop Taking the Following Medications: Medication list as of 04-20-16 13:15 Attention: If you have any medications at [...] Electronically Signed By: SHAR TEJEDA MD Signed On:20-APR-2016 13:15:28 Your Allergies & Intolerances Substance Reaction Symptoms [...] Time Location Provider 05/29/2016 12:30 [facility] EVANS, Ansley Luna Attention: Contact your local Clinic if further appointment detail needed. Adapting to : First Trimester As your body adjusts, you may have to change or limit your daily activities. Youll need more rest. You may also need to use the energy you have more wisely. Eat stomach-friendly foods like cottage cheese, crackers, or bread throughout the day. Your Changing Body Almost every part of your body is affected as you adapt to . The uterus and cervix will begin to soften right away. You may not look very during the first three months. But you are likely to have some common signs of early : ?? Nausea ?? Fatigue ?? Frequent urination ?? Mood swings ?? Bloating of the abdomen ?? Missed or light periods (first trimester bleeding) ?? Nipple or breast tenderness, breast swelling Its Not Too Late to Start Good Habits What matters most is protecting your baby from this moment on. If you smoke, drink alcohol, or use drugs, now is the time to stop. If you need help, talk with your health care provider. ?? Smoking increases the risk of stillbirth or having a fmt-kgpcc-wxlwvh baby. If you smoke, quit now. ?? Alcohol and drugs have been linked with miscarriage, defects, intellectual disability, and low weight. Do not drink alcohol or take drugs. Tips to Relieve Nausea Although nausea can occur at any time of the day, it may be worse in the morning. To help prevent nausea: ?? Eat small, light meals at frequent intervals. ?? Get up slowly. Eat a few unsalted crackers before you get out of bed. ?? Drink water with lemon slices. ?? Eat an ice pop in your favorite flavor. ?? Ask your health care provider about taking jia or vitamin B6 for nausea and vomiting. ?? Talk with your health care provider if you take vitamins that upset your stomach. Work Concerns The end of the first trimester is a good time to discuss working during with your employer. Follow your health care providers advice if your job requires you to stand for a long time, work with hazardous tools, or even sit at a desk all day. Your workspace, workload, or scheduled hours may need to be adjusted. Perhaps you can change body postures more often or take an extra break. Advice for Travel Talk to your health care provider first, but the second trimester may be the best time for any travel. You may be advised to avoid certain trips while youre . Food and water can be concerns in developing countries. Travel by car is a good choice, as you can stop, get out, and stretch. Bring snacks and water along. Fasten the lap belt below your belly, low over your hips. Also be sure to wear the shoulder harness. Intimacy Unless your health care provider tells you to, there is no reason to stop having sex while youre . You or your partner may notice changes in desire. Desire may be less in the first trimester, due to nausea and fatigue. In the second trimester, sex may be very enjoyable. The third trimester canbe a challenge comfort-ventura. Try different positions and see whats best for you both. ?? [id number] [facility], [address] [place] [address], [place] [address]. All rights reserved. This information is not intended as a substitute for professional medical care. Always follow your healthcare professional's instructions. Consider Using Patient Online Services Patient Online [...] if you dont have one. Go to [email or web address] and click on Create Your Account. Then, follow the directions to complete the online form. Youll be asked for your [facility] number which you can find at the top of this document. Your Goals/Additional instructions: This document has images extracted. Please consider using [employer] for all your patient education needs. Source: [facility] POWERCHART Document Id: [id number] documented in this encounter Plan of Treatment Upcoming Encounters Date Type Specialty Care Team Description 08/17/2022 Procedure visit Neurology Marina Winter M.D., M.P.H. [address] [phone] (Wo rk) Scheduled Procedures Name Priority Associated Diagnoses Date/Time LIFT THIGH Excessive And Redundant Skin And Subcutaneous Tissue documented as of this encounter Procedures Procedure Name Priority Date/Time Associated Comments Diagnosis CHLAMYDIA/GONORRHOEAE Routine 04/20/2016 1:27 PM Results for this AMPLIFIED RNA CDT procedure are in the results section. CHLAMYDIA TRACHOMATIS Routine 04/20/2016 1:27 PM Results for this AMPLIFIED RNA CDT procedure are in the results section. PATHOLOGY WORKPLACE RELATIONS ADVISER Routine 04/20/2016 12:00 Results fo r this CYTOLOGY AM CDT procedure are i n the results section. documented in this encounter Results Chlamydia / Gonorrhoeae Amplified RNA (04/20/2016 1:27 PM CDT) Component Value Ref Test Analysis Performed At [facility] Method Time Signature HX GC by Nucleic POWERCHART Acid Amplification HXFinal Negative for POWERCHART Neisseria gonorrhea by RNA amplification . HXFinal Reference: POWERCHART Negative HXFinal If you POWERCHART submitted a female urine sample, please note it is a Laboratory Developed Test. Specimen (Source) Anatomical Collection Method Collection Time Re ceived Time Location / / Volume Laterality Cervix/Endocervix 04/20/2016 1:27 PM CDT Shar Tejeda M.D. LAB MICROBIOLOGY - GENERAL O [place] Performing Organization Address City/State/ZIP Code Phon e Number POWERCHART Chlamydia Trachomatis Amplified RNA (04/20/2016 1:27 PM CDT) Component Value Ref Test Analysis Performed At [facility] Method Time Signature HXChlamydia by POWERCHART Nucleic Acid Amplification HXFinal Negative for POWERCHART Chlamydia trachomatis by RNA amplification. HXFinal Reference: POWERCHART Negative HXFinal If you POWERCHART submitted a female urine sample, please note it is a Laboratory Developed Test. Specimen (Source) Anatomical Collection Method Collection Time Re ceived Time Location / / Volume Laterality Cervix/Endocervix 04/20/2016 1:27 PM CDT Shar Tejeda M.D. LAB MICROBIOLOGY - GENERAL O [place] Performing Organization Address City/State/ZIP Code Phon e Number POWERCHART Pathology WORKPLACE RELATIONS ADVISER Cytology (04/20/2016 12:00 AM CDT) Specimen (Source) Anatomical Location Collection Method / Collectio n Time Received Time / Laterality Volume 04/20/2016 Narrative [facility] - 04/26/2016 2:15 PM CDT [facility] in [address] [place], [place] ??[id number] Patient Name: NANCY PHILLIPS Patient ID #: [id number] Collected: 04/20/2016 Address: City/State/Zip: [address] [place], [place] ??[address] Received: Reported: 04/21/2016 04/26/2016 Soc. Sec. #: ?/Age/Sex 1985 (Age: 31) ??F Physician(s): GLENN TEJEDA MD Copy To: ? [facility] ?? [id number] [place], [place] [address] CYTOPATHOLOGY WORKPLACE RELATIONS ADVISER REPORT FINAL CYTOLOGIC DIAGNOSIS Pap Smear - ThinPrep: NEGATIVE FOR INTRAEPITHELIAL LESION OR MALIGNANCY SPARSE TO NO ENDOCERVICAL COMPONENT PRES ENT. SATISFACTORY SPECIMEN FOR EVALUATION. Electronically Signed Out By amb/04/26/[address](ASCP) The Pap test is a screening procedure an d, as such, is subject to both false positive and false negative results as evidenced by published data. ??It is not a diagnostic test and results should be inter preted in the context of the patient's h istory and other clinical findings. ??Obtaining per iodic Pap tests may help to minimize the consequences of any false negatives that may occur. SPECIMEN(S) RECEIVED: Pap Smear - ThinPrep CLINICAL HISTORY: Date of Last Menstrual Period: 03/07/2016 Menstrual History: Hormonal History: No hormonal therapy Other Clinical Conditions: HPV TYPING REQUESTED: IF ASCUS Shar Tejeda M.D. LAB PAP COPATH ORDERABLES Performing Organization Address City/State/ZIP Code Phon e Number [facility] documented in this encounter Visit Diagnoses Not on filedocumented in this encounter Additional Health Concerns Assessment Noted Time PHQ-9 Depression Total Score: 13 06/14/2015 3:56 PM CD T documented as of this encounter
--- OUTSIDE RECORDS SUMMARY | 2022-07-24 15:17 | XMS_ITS | Encounter Summary ---
:1985 Author Organization [facility] Address [address] [place] [address] Care Team Providers Name Role Phone Unavailable Primary Care Provider Unavailable Encounter Details Date Type Department Care Team Description 04/02/2014 Hospital Encounter HX [facility] Grandalfred, Lizandro Olguin, P.A.-C., P.A. [address], [place] [address] (Wo rk) Social History [...] How often do you attend bahai or lutheran Never 07/04/2019 services? 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 notified of message and she states understanding. This was faxed to [employer] in [place] per patient request. Addendum by AJAY OG LPN on 08 April 2014 10:44:52 CDT Unable to reach patient. Busy signal. will try to call later. Addendum by LEXII MINOR PA-C on 08 April 2014 10:16:35 CDT From: LEXII MINOR PA-C To: JACEY Minor Nurse; Sent: 04/08/2014 10:16:35 CDT Subject: RE: Med Management I did refill with one month isaura period. Needs to show wt loss for ongoing refills. CG Addendum by LEXII MINOR PA-C on 08 April 2014 10:16:05 CDT Submitted: Order:phentermine (phentermine 37.5 mg oral tablet) 1 tab(s) PO Daily Qty: 30 tab(s) Duration: 30 day(s) Refills: 0 Substitutions Allowed Print - [id number] Signed by LEXII MINOR PA-C 04/08/2014 10:15:19 Addendum by AJAY OG LPN on 08 April 2014 08:39:09 CDT From: AJAY OG LPN (JACEY Minor Nurse) To: LEXII MINOR PA-C; Sent: 04/08/2014 08:39:09 CDT Subject: FW: Med Management Addendum by JAYLENE CASANOVA on 07 April 2014 17:01:19 CDT From: JAYLENE CAASNOVA (JACEY Berry Nurse) To: JACEY Minor Nurse; Sent: 04/07/2014 17:01:19 CDT Subject: FW: Med Management Addendum by JAYLENE CASANOVA on 07 April 2014 17:01:04 CDT Patient notified however requested this be sent to [facility]. Addendum by MARVEL BERRY MD on 07 April 2014 16:31:40 CDT Not Approved: Order:phentermine (phentermine 37.5 mg oral tablet) 1 tab(s) PO Daily Qty: 30 tab(s) Duration: 30 day(s) Refills: 0 Substitutions Allowed Don't Print - called to pharmacy (Rx) Other (See Comment) No longer losing weight. Signed by MARVEL BERRY MD Addendum by MARVEL BERRY MD on 07 April 2014 16:30:57 CDT From: MARVEL BERRY MD To: Kristi Nurse; Sent: 04/07/2014 16:30:57 CDT Subject: RE: Med Management Denied. She's no longer losing weight on this med. E.Kristi From: JESSICA DRIVER ( Kristi Nurse) To: MARVEL BERRY MD; Sent: 04/02/2014 16:20:26 CDT Subject: Med Management On hold pending signature Order:phentermine (phentermine 37.5 mg oral tablet) 1 tab(s) PO Daily Qty: 30 tab(s) Duration: 30 day(s) Refills: 0 Substitutions Allowed Don't Print - called to pharmacy (Rx) Caller is: ( ) Patient ( ) Mother ( ) Father ( ) Spouse ( ) Daughter ( ) Son ( x ) Pharmacy ( ) Other: Provider: Kristi [facility]: [facility] Name of Medications Needing Refill:Phentermine 37.5 mg Last Refill Date:02-06-2014 Additional Information:Please advise in C.Soila absense, patient has 4 tablets left. B/P 118/76,[id number] on 04-02-2014, weight x7 weeks ago , 108.2 B/p 112/76 Last / Future Appointment: Disposition: ( ) Send to Pharmacy ( ) Call to Pharmacy ( ) Patient will excelsior picker Script ( ) Mail Rx to Patient Source: [facility] POWERCHART Document Id: [id number] documented in this encounter Plan of Treatment Upcoming Encounters Date Type Specialty Care Team Description 08/17/2022 Procedure visit Neurology Marina Winter M.D., M.P.H. [address] [phone] (Wo rk) Scheduled Procedures Name Priority Associated Diagnoses Date/Time LIFT THIGH Excessive And Redundant Skin And Subcutaneous Tissue documented as of this encounter Visit Diagnoses Not on filedocumented in this encounter Additional Health Concerns Assessment Noted Time PHQ-9 Depression Total Score: 5 02/18/2014 10:07 AM CD T documented as of this encounter
--- OUTSIDE RECORDS SUMMARY | 2022-07-24 15:17 | XMS_ITS | Encounter Summary ---
:1985 Author Organization [facility] Address [address] [place] [address] Care Team Providers Name Role Phone Unavailable Primary Care Provider Unavailable Encounter Details Date Type Department Care Team Description 05/05/2015 Hospital Encounter HX NO MAPPING Donnie Diaz M.D. [address] [place], [place] [phone] (Wo rk) Social History [...] How often do you attend tenriism or mormon Never 07/04/2019 services? 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 [address] [phone] (Wo rk) Scheduled Procedures Name Priority Associated Diagnoses Date/Time LIFT THIGH Excessive And Redundant Skin And Subcutaneous Tissue documented as of this encounter Visit Diagnoses Not on filedocumented in this encounter Additional Health Concerns Assessment Noted Time PHQ-9 Depression Total Score: 6 02/15/2015 4:18 PM CDT documented as of this encounter
--- OUTSIDE RECORDS SUMMARY | 2022-07-24 15:17 | XMS_ITS | Encounter Summary ---
:1985 Author Organization [facility] Address [address] [place] [address] Care Team Providers Name Role Phone Unavailable Primary Care Provider Unavailable Encounter Details Date Type Department Care Team Description 09/14/2015 Hospital Encounter HX NO MAPPING Checo Wright III, M.D. (Skip), M.P.H. [address] [place], [place] [address] (Wo rk) Social History Tobacco Use Types [...] How often do you attend gnosticist or taoism Never 07/04/2019 services? 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 [address] [phone] (Wo rk) Scheduled Procedures Name Priority Associated Diagnoses Date/Time LIFT THIGH Excessive And Redundant Skin And Subcutaneous Tissue documented as of this encounter Visit Diagnoses Not on filedocumented in this encounter Additional Health Concerns Assessment Noted Time PHQ-9 Depression Total Score: 13 06/14/2015 3:56 PM CD T documented as of this encounter
--- OUTSIDE RECORDS SUMMARY | 2022-07-24 15:17 | XMS_ITS | Encounter Summary ---
:1985 Author Organization [facility] Address [address] [place] [address] Care Team Providers Name Role Phone Unavailable Primary Care Provider Unavailable Encounter Details Date Type Department Care Team Description 11/17/2013 Hospital En[facility] [address] [facility] [address] [address] (Wo rk) Social History Tobacco Use Types [...] How often do you attend sikhism or scientologist Never 07/04/2019 services? 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 - 11/17/2013 9:49 AM CST [id number] Reason for visit is concern regarding excessive skin on abdomen and on arms status post weight loss. HISTORY OF PRESENT ILLNESS Nancy is a 28-year-old female who has been obese most of her adult life. She has recently had a child approximately 6 months ago. Since that time she has lost 60 pounds and she has noted that she hasredundancy in her abdomen and on her arms. She is continuing to try to lose weight as her BMI is still within unacceptable range. Her current BMI is 39.02. She is taking phentermine to help ease her hunger pangs but recently she has not lost much in the way of weight and for the past 4 months her BMI has been stable at 39.02 to 39.14. I discussed today with Nancy the fact that at her current BMI she is not a candidate for a panniculectomy. She needs to get her BMI down to 27 at the maximum. This would require a significant amount of weight loss. I spent a good amount of time talking to Nancy about monitoring her diet. I have recommended that she use an application called My Fitness Pal to record her daily intake, to monitor how much she actually is eating so she can regulate her caloric intake. I also discussed activity such as exercise to burn calories. I specifically recommended the [employer] workout application to show her how to do low-impact calisthenic exercises that can help burn calories. Today we have planned for a 3-month followup for a check on her weight and BMI and to encourage her to continue to lose weight. Ovidio is not able to lose weight using self-monitoring means [facility]. Length of today's visit was 15 minutes. Indiana Hanna M.D./mercedes Electronically Signed By: INDIANA HANNA On: 11/18/2013 10:40 AM Source: [facility] MHSDOLBEYNONRADSYS Document Id: [id number] RWRITING MANAGER documented in this encounter Miscellaneous Notes Miscellaneous - Indiana Hanna M.D. - 11/17/2013 11:09 AM CST Ambulatory Patient Summary [address] [address] Visit Information Name: JOSEPHINE ROBINSSSICA ELIZABETH [facility] Number: [id number] Current Date: 11/17/2013 11:09:37 Physicians Attending Provider: INDIANA HANNA Primary Care Provider: LEXII MINOR PA-C FRITZ ROBINSICA ELIZABETH has been given the following list [...] Take Indications/Special Instructions/Comments/Notes for Patient Medication Changes/Routing etonogestrel (Nexplanon 68 mg subcutaneous implant) 1 Each, Subcutaneous, once hydrOXYzine (Vistaril 25 mg oral capsule) 1 cap, Oral, four times a day as needed for Migraine headache naproxen (Naprosyn 500 mg oral tablet) 1 Tablet(s), Oral, two times a day with meals as needed for pain and headaches phentermine (phentermine 37.5 mg oral tablet) 1 Tablet(s), Oral, once a day 1 hour before or 2 hoursafter meals selenium sulfide topical (Selseb 2.25% topical shampoo) See Instructions 1 corey Topical 2-3xWeek as directed spironolactone (spironolactone 50 mg oral tablet) 1 Tablet(s), Oral, once a day triamcinolone topical (triamcinolone 0.1% topical cream) 1 corey, Topical, three times a day as neededfor Rash venlafaxine (Effexor XR 75 mg oral capsule, extended release) 1 cap, Oral, once a day Stop Taking the Following Medications: Medication list as of 11-17-13 11:09 Attention: If you have any medications at home that are not on this list, DO NOT take them until youcontact your provider for clarification. Give a copy of your medication list to your primary care provider. Update your medication list any time medications or doses are changed and carry your medication list at all times in case of emergency. Your Allergies & Intolerances Substance Reaction Symptoms [...] 04/23/2013 Your Upcoming Appointments Date Time Location Reason Provider 02/16/2014 11:00 [facility] Indiana Hanna MD Attention: Contact your local Clinic if further appointment detail needed. Your Goals/Additional instructions: Source: [facility] POWERCHART Document Id: [id number] RWRITING MANAGER Miscellaneous - Indiana Hanna M.D. - 11/17/2013 11:09 AM CST Ambulatory Depart Summary [facility] [address] [place] [id number] Visit Information Name: FRITZ ROBINSMARIEL ORANTESE [facility] Number: [id number] Visit Date: 11/17/2013 11:09:25 Attending Provider: INDIANA HANNA Primary Care Provider: LEXII MINOR PA-C NANCY ROBINSE has been given the following list of medications: Your Medications It is important to take your medications as directed. Use a pill box or chart to help remind you to take your medications. Please let your doctor or nurse know if you have problems taking your medications. Medication/Strength How to Take Indications/Special Instructions/Comments/Notes for Patient Medication Changes/Routing etonogestrel (Nexplanon 68 mg subcutaneous implant) 1 Each, Subcutaneous, once hydrOXYzine (Vistaril 25 mg oral capsule) 1 cap, Oral, four times a day as needed for Migraine headache naproxen (Naprosyn 500 mg oral tablet) 1 Tablet(s), Oral, two times a day with meals as needed for pain and headaches phentermine (phentermine 37.5 mg oral tablet) 1 Tablet(s), Oral, once a day 1 hour before or 2 hoursafter meals selenium sulfide topical (Selseb 2.25% topical shampoo) See Instructions 1 corey Topical 2-3xWeek as directed spironolactone (spironolactone 50 mg oral tablet) 1 Tablet(s), Oral, once a day triamcinolone topical (triamcinolone 0.1% topical cream) 1 corey, Topical, three times a day as neededfor Rash venlafaxine (Effexor XR 75 mg oral capsule, extended release) 1 cap, Oral, once a day Stop Taking the Following Medications: Medication list as of 11-17-13 11:09 Attention: If you have any medications at home that are not on this list, DO NOT take them until youcontact your provider for clarification. Give a copy of your medication list to your primary care provider. Update your medication list any time medications or doses are changed and carry your medication list at all times in case of emergency. Additional Information: Source: [facility] POWERCHART Document Id: [id number] RWRITING MANAGER Miscellaneous - Slava Hartmann, RRodrigoN. - 11/17/2013 10:08 AM CST Adult Assistant Chief Nursing Officer Intake/History Adult Assistant Chief Nursing Officer Intake/History Entered On: 11/17/2013 10:12 UNDERWRITING MANAGER Performed On: 11/17/2013 10:08 UNDERWRITING MANAGER by SLAVA HARTMANN Intake Chief Complaint : Consult -patient has lost 60 lbs and has excess skin with irritation. discuss surgery for removal Peripheral Pulse Rate : 80 /min Respiratory Rate : 16 /min Systolic Blood Pressure : 126 mmHg Diastolic Blood Pressure : 80 mmHg NIBP Mean : 95 mmHg BP Location : Right upper extremity Blood Pressure Cuff Size : Large Height : 164.5 cm(Converted to: 5 ft 5 inch(es), 64.76 inch(es)) Actual Weight : 105.6 kg(Converted to: 232 lb 13 oz) Weight Source : Standing scale Dosing Weight Clinic : 105.6 kg Clinic BSA : 2.2 Body Mass Index : 39.02 kg/m2 SLAVA HARTMANN - 11/17/2013 10:08 UNDERWRITING MANAGER General Info Information Given By : Patient Languages : Spanish SLAVA HARTMANN - 11/17/2013 10:08 UNDERWRITING MANAGER Subjective Pain Symptoms : No SLAVA HARTMANN - 11/17/2013 10:08 UNDERWRITING MANAGER Dependent Habits Tobacco Use/Currently Using : Yes Exposure to Tobacco Smoke : Other: never Smoking Status : Never smoker SLAVA HARTMANN - 11/17/2013 10:08 UNDERWRITING MANAGER Tobacco Use Grid Other Tobacco Frequency : never SLAAV HARTMANN - 11/17/2013 10:08 UNDERWRITING MANAGER Caffeine Use Grid Caffeine Use : Current Type : Soft drinks Frequency : Daily SLAVA HARTMANN - 11/17/2013 10:08 UNDERWRITING MANAGER Source: [employer] POWERCHART Document Id: [id number] UNDERWRITING MANAGER!33 RWRITING MANAGER documented in this encounter Plan of Treatment Upcoming Encounters Date Type Specialty Care Team Description 08/17/2022 Procedure visit Neurology Marina Winter M.D., M.P.H. [address] [place] [phone] (Wo rk) Scheduled Procedures Name Priority Associated Diagnoses Date/Time LIFT THIGH Excessive And Redundant Skin And Subcutaneous Tissue documented as of this encounter Visit Diagnoses Not on filedocumented in this encounter Additional Health Concerns Assessment Noted Time PHQ-9 Depression Total Score: 5 07/09/2013 9:08 AM CDT documented as of this encounter
--- OUTSIDE RECORDS SUMMARY | 2022-07-24 15:17 | XMS_ITS | Encounter Summary ---
:1985 Author Organization [facility] Address [address] [place] [address] Care Team Providers Name Role Phone Unavailable Primary Care Provider Unavailable Encounter Details Date Type Department Care Team Description 06/11/2015 Hospital Encounter HX [facility] Meche Montiel M.D. [address] [place] [address] (Wo rk) Social History Tobacco [...] How often do you attend temple or mu-ism Never 07/04/2019 services? 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 - 06/11/2015 9:34 AM CDT [id number] CHIEF COMPLAINT / REASON FOR VISIT Followup on vertigo, elevated blood pressure, and extremity edema. HISTORY OF PRESENT ILLNESS Nancy is a 30-year-old female who presents to the clinic today for followup on vertigo, elevated blood pressure, and extremity edema. The dizziness has improved; she has only had two 1-day incidents of dizziness in the past month. As a result, the patient has not been using her meclizine regularly. Nancy continues to experience intermittent swelling in her hands, legs, and feet. She is able to feel the swelling when she curls her fingers and toes. There are days when the patient has difficulty putting on or taking off her rings. In regards to her elevated blood pressure, Nancy reports that her reading had been 190/100 when she last checked it at [employer] It is well-controlled today at 122/76, and has been within normal limits the last few times she has been in the clinic. The patient does not think that she is well enough at this time to be working, and would like a notefor work. She has been under a lot of situational stress, and does not feel that she is coping well enough to handle additional stress at work. Nancy notes that she has not been sleeping well. Lastly, the patient has been intermittently developing a rash underneath her breasts, seemingly related to heat. She would like a cream for this at this time. There are no further concerns at this time. REVIEW OF SYSTEMS Positive for vertigo, swelling in the hands, legs, and feet, and depression. All other systems reviewed are negative except as noted above in HPI. CURRENT MEDICATIONS Hydrochlorothiazide 25 mg daily. Vistaril 25 mg four times a day as needed for migraine headaches. Meclizine 25 mg up to three times a day as needed for dizziness. Naprosyn 500 mg twice a day with meals as needed for pain and headaches. Ortho-Cyclen 0.25 mg-35 mcg daily continuously. Maxalt 5 mg daily as needed for migraine headaches. Effexor XR 75 mg daily. ALLERGIES No known drug allergies. VITAL SIGNS HEIGHT: 164 cm. WEIGHT: 130.4 kg. PULSE: 72 /min. SYSTOLIC: 122 mmHg. DIASTOLIC: 76 mmHg. PHYSICAL EXAM GENERAL: Alert, oriented, obese female, well developed and well nourished. SKIN: Intact. No rash or lesion. No ecchymosis. NECK: Neck is supple. LYMPH: No lymphadenopathy. THYROID: No thyromegaly or mass. HEART: Regular rate and rhythm. Normal S1 and S2. No murmur or bruit. LUNGS: Clear. No wheezes or crackles. Normal inspiratory to expiratory ratio. EXTREMITIES: Normal range of motion of all extremities. 1+ edema in the legs. Hands are puffy but noedema noted. MOOD: Pleasant, flattened mood and affect. PHQ-9 score is 13. Normal judgment and insight. IMPRESSION / REPORT / PLAN 1. Weight gain and fluid retention. 2. Major recurrent depression, currently not well-controlled with increased stressors. PHQ-9 score is 13. 3. Yeast intertrigo. Plan: 1. Today we discussed that there may be something more than just edema occurring such as electrolyteor thyroid dysfunction. BMP, TSH, TPO antibodies, and UA for protein will be checked today. Continuehydrochlorothiazide 25 mg daily. I may switch her to a different diuretic based on her lab results. 2. Increase Effexor XR to 150 mg daily. Note to be off of work for two months is written. I recommended that she restart cognitive therapy. Will likely followup with the patient in 1-2 months, but to be determined based on her labs. 3. Prescription is written for nystatin 100,000 units/g cream, apply topically twice a day as neededto the affected areas. This document serves as a record of services personally performed by Annemarie Montiel MD. It was created on their behalf by Sanam Lindsay, a trained medical staff services coordinator. The creation of this record is based on the scribe's personal observations and the provider's statements to them. This document has been checked and approved by the attending provider. Annemarie Montiel M.D./shannon Electronically Signed By: ANNEMARIE MONTIEL MD On: 07/02/2015 08:22 AM Source: [facility] [id number] Document Id: [id number] documented in this encounter Miscellaneous Notes Miscellaneous - Clifford Ovalles L.P.N. - 06/23/2015 4:32 PM CDT Radiology Scheduling Questionnaire Radiology Scheduling Questionnaire Entered On: 06/23/2015 16:34 CDT Performed On: 06/23/2015 16:32 CDT by CLIFFORD OVALLES LPN Radiology Scheduling Questionnaire Rad/Relevan Medications Grid Amiodarone : No Avandamet : No Glucophage : No Glucovance : No Metaglip : No Metformin : No Coumadin (warfarin) : No Plavix (clopidogrel) : No CLIFFORD OVALLES LPN - 06/23/2015 16:32 CDT Rad/Iodinated Contrast Risk Grid Asthma : No CHF : No Chronic Renal Failure : No Diabetes : No Dialysis : No Dyspnea : No Emphysema/COPD : No Gout : No Hay Fever : No Iodine Allergy : No Multiple Myeloma : No One Kidney : No : No Previous CA : No Other (document in Comments) : No CLIFFORD OVALLES LPN - 06/23/2015 16:32 CDT Previous Films : No Previous Films Requested Today : No CLIFFORD OVALLES LPN - 06/23/2015 16:32 CDT Source: [facility] POWERCHART Document Id: [id number] CDT!29 Miscellaneous - Annemarie Montiel M.D. - 06/16/2015 6:41 AM CDT Results Notification Document Contains Addenda Addendum by ANNEMARIE MONTIEL MD on 23 June 2015 19:15:19 CDT Orders placed for [place]. I am not sure how to do them in [place]. Addendum by CLIFFORD OVALLES LPN on 16 June 2015 13:46:19 CDT From: CLIFFORD OVALLES LPN ( [employer] Nurse) To: ANNEMARIE MONTIEL MD; Sent: 06/16/2015 13:46:19 CDT Show up: 06/16/2015 13:44:00 CDT Subject: RE: Results Notification Patient has been notified of results. She did not have her period at the time of the urine as is aware of work up that will be needed and she is wondering if everything can be done in [facility] or if she has to come back here. From: ANNEMARIE MONTIEL MD To: [facility] Nurse; Sent: 06/16/2015 06:41:29 CDT ! Show up: 06/16/2015 06:37:00 CDT Subject: Results Notification Labs look good except urine showed some elevated RBCs--was Nancy having her period at the time of the test? If yes, then repeat UA in 2 wks. If no, I recommend work up for Hematuria(CT urogram, Urinefor cytology, Urology consult for Cystoscopy). I will order these if needed. Thyroid studies are normal, therefore the swelling is likely related to recent stressors and diet. Irecommend a low sodium diet and increase water intake--urine looks concentrated like she is not getting enough water. Follow up with her PCP Jenae Minor, in 4 wks to make sure the increased dose of Effexor is helping and that swelling is improving. Results: Date Result Name Ind Value Ref Range 06/11/2015 11:14 UA Color STRAW 06/11/2015 11:14 UA Clarity Clear (Clear - ) 06/11/2015 11:14 UA Spec Grav (*) >=1.030 06/11/2015 11:14 UA pH 5.5 06/11/2015 11:14 UA Protein Negative mg/dL (Negative - ) 06/11/2015 11:14 UA Glucose Negative mg/dL (Negative - ) 06/11/2015 11:14 UA Ketones Negative mg/dL (Negative - ) 06/11/2015 11:14 UA Bili (*) Small (Negative - ) 06/11/2015 11:14 UA Urobilinogen 0.2 mg/dL (0.2 - ) 06/11/2015 11:14 UA Blood (*) Moderate (Negative - ) 06/11/2015 11:14 UA Nitrite Negative (Negative - ) 06/11/2015 11:14 UA Leuk Est Negative (Negative - ) 06/11/2015 11:14 UR WBC (*) 11-20 /HPF (None Seen - ) 06/11/2015 11:14 UR RBC (*) 3-10 /HPF (None Seen - ) 06/11/2015 11:14 UR % Dysmorphic RBC <=25 % (<=25 - ) 06/11/2015 11:14 UR Squamous Epi Cells (*) 11-20 /HPF (None Seen - ) 06/11/2015 11:14 UR Mucous (*) Present (None Seen - ) 06/11/2015 11:06 Sodium Lvl 140 mmol/L (135 - 145) 06/11/2015 11:06 Potassium Lvl 3.8 mmol/L (3.6 - 5.2) 06/11/2015 11:06 Chloride 104 mmol/L (98 - 107) 06/11/2015 11:06 CO2 23 mmol/L (22 - 29) 06/11/2015 11:06 Glucose Lvl 106 mg/dL (70 - 139) 06/11/2015 11:06 Creatinine (L) 0.5 mg/dL (0.6 - 1.1) 06/11/2015 11:06 EGFR (MDRD) >60 mL/min/1.73m2 (>=60 - ) 06/11/2015 11:06 EGFR (MDRD) >60 mL/min/1.73m2 (>=60 - ) 06/11/2015 11:06 BUN 8 mg/dL (6 - 21) 06/11/2015 11:06 Calcium Lvl 8.9 mg/dL (8.0 - 10.3) 06/11/2015 11:06 TSH 1.01 mIU/L (0.27 - 4.20) 06/11/2015 11:06 Thyroperox Ab-Gallegos 8.1 IntU/ml (<9.0 - ) Source: [facility] POWERCHART Document Id: [id number] Electronically signed by Conversion, [facility] Water Regulator And Valve Repairer [id number] at 04/02/2017 12:38 AM CDT Bunny - Deb Purvis - 06/14/2015 3:56 PM CDT PHQ-9 PHQ-9 Entered On: 06/14/2015 15:58 CDT Performed On: 06/14/2015 15:56 CDT by DEB PURVIS PHQ-9 Little interest or pleasure in doing things : More than half the days Feeling down, depressed, or hopeless : Nearly every day Trouble falling or staying asleep, or sleeping too much : More than half the days Feeling tired or having little energy : Nearly every day Poor appetite or overeating : Not at all Feeling bad about yourself or that you are a failure : More than half the days Trouble concentrating on things : Not at all Moving or speaking slowly; restless or fidgety : Not at all Thoughts that you would be better off /hurting self : Several days PHQ-9 Calculated Score : 13 Problems make work, home, or dealing with others : Very difficult DEB PURVIS - 06/14/2015 15:56 CDT Source: [facility] POWERCHART Document Id: [id number] CDT!13 Bunny - Annemarie Montiel M.D. - 06/11/2015 10:56 AM CDT Work Excuse 11 June 2015 NANCY PHILLIPS [address] [place] [address] [phone] Dear NANCY PHILLIPS, You were examined in my office on: 06/11/15 Reason for work excuse: Medical Illness ( X ) Yes ( _ ) No Injury ( _ ) Yes ( _ ) No Is excused from all work: (X ) Yes ( _ ) No I have recommended that Nancy be off work for the next 2 months to give appropriate time to manageher medical concerns. Sincerely, ANNEMARIE MONTIEL [address] [place] [address] [phone] Electronic Signature Electronically Signed By: ANNEMARIE MONTIEL MD On: 11 June 2015 This document has images extracted. Source: [facility] POWERCHART Document Id: [id number] Electronically signed by Maria R [facility] Water Regulator And Valve Repairer [id number] at 04/02/2017 12:38 AM CDT Miscellaneous - Annemarie Montiel M.D. - 06/11/2015 10:54 AM CDT Ambulatory Patient Summary [address] [id number] Visit Information Name: JOSEPHINE PHILLIPSSSICA ELIZABETH [facility] Number: [id number] Current Date: 06/11/2015 10:54:50 Physicians Attending Provider: ANNEMARIE MONTIEL MD Primary Care Provider: JENAE MINOR PA-C FRITZ PHILLIPSICA ELIZABETH has been given the following list [...] Take Indications/Special Instructions/Comments/Notes for Patient Medication Changes/Routing hydrochlorothiazide (hydrochlorothiazide 25 mg oral tablet) 1 Tablet(s), Oral, once a day hydrOXYzine (Vistaril 25 mg oral capsule) 1 cap, Oral, four times a day as needed for Migraine headache meclizine (meclizine 25 mg oral tablet) 1 Tablet(s), Oral, three times a day as needed for Dizziness naproxen (Naprosyn 500 mg oral tablet) 1 Tablet(s), Oral, two times a day with meals as needed for pain and headaches will call when refill needed norgestimate-ethinyl estradiol (Ortho-Cyclen 0.25 mg-35 mcg oral tablet) 1 Tablet(s), Oral, once a day take 21 days of active tablets then skip placebos and start the next pack rizatriptan (Maxalt 5 mg oral tablet) 1 Tablet(s), Oral, once a day as needed for Migraine headache may repeat dose once in 2 hours venlafaxine (Effexor XR 150 mg oral capsule, extended release) 1 cap, Oral, once a day New dose Thisis a CHANGE Routed to [facility] [address] [facility] [place] [address] Stop Taking the Following Medications: Medication list as of 06-11-15 10:54 Attention: If you have any medications at [...] Electronically Signed By: ANNEMARIE MONTIEL MD Signed On:11-JUN-2015 10:54:39 Your Allergies & Intolerances Substance Reaction Symptoms [...] online form. Youll be asked for your [facility] number which you can find at the top of this document. Your Goals/Additional instructions: Source: [facility] POWERCHART Document Id: [id number] Miscellaneous - Annemarie Montiel M.D. - 06/11/2015 10:54 AM CDT Ambulatory Discharge Medication List [facility] [address] [place] [id number] Visit Information Name: NANCY PHILLIPS [facility] Number: [id number] Visit Date: 06/11/2015 10:54:49 Attending Provider: ANNEMARIE MONTIEL MD Primary Care Provider: JENAE MINOR PA-C NANCY PHILLIPS has been given the following list of medications: Your Medications It is important to take your medications as directed. Use a pill box or chart to help remind you to take your medications. Please let your doctor or nurse know if you have problems taking your medications. Medication/Strength How to Take Indications/Special Instructions/Comments/Notes for Patient Medication Changes/Routing hydrochlorothiazide (hydrochlorothiazide 25 mg oral tablet) 1 Tablet(s), Oral, once a day hydrOXYzine (Vistaril 25 mg oral capsule) 1 cap, Oral, four times a day as needed for Migraine headache meclizine (meclizine 25 mg oral tablet) 1 Tablet(s), Oral, three times a day as needed for Dizziness naproxen (Naprosyn 500 mg oral tablet) 1 Tablet(s), Oral, two times a day with meals as needed for pain and headaches will call when refill needed norgestimate-ethinyl estradiol (Ortho-Cyclen 0.25 mg-35 mcg oral tablet) 1 Tablet(s), Oral, once a day take 21 days of active tablets then skip placebos and start the next pack rizatriptan (Maxalt 5 mg oral tablet) 1 Tablet(s), Oral, once a day as needed for Migraine headache may repeat dose once in 2 hours venlafaxine (Effexor XR 150 mg oral capsule, extended release) 1 cap, Oral, once a day New dose Thisis a CHANGE Routed to [facility] [address] [place] [address] Stop Taking the Following Medications: Medication list as of 06-11-15 10:54 Attention: If you have any medications at [...] Electronically Signed By: ANNEMARIE MONTIEL MD Signed On:11-JUN-2015 10:54:39 Additional Information: Source: [facility] POWERCHART Document Id: [id number] Miscellaneous - Clifford Ovalles LRodrigoP.N. - 06/11/2015 10:05 AM CDT Adult Care Attendant Intake/History Adult Care Attendant Intake/History Entered On: 06/11/2015 10:10 CDT Performed On: 06/11/2015 10:05 CDT by CLIFFORD OVALLES LPN Intake Chief Complaint : Follow up on new medications. Discuss dizziness and swelling in hands, feet, and legs. Discomfort in hands from swelling. Peripheral Pulse Rate : 72 /min Systolic Blood Pressure : 122 mmHg Diastolic Blood Pressure : 76 mmHg NIBP Mean : 91 mmHg BP Location : Right upper extremity Blood Pressure Cuff Size : Large Actual Weight : 130.4 kg(Converted to: 287 lb 8 oz) Weight Source : Standing scale Dosing Weight Clinic : 130.4 kg CLIFFORD OVALLES LPN - 06/11/2015 10:05 CDT General Info Information Given By : Patient Preferred Communication Mode : Verbal Languages : Slovenian Is Patient Female and 13-50 no hysterectomy : Yes Status : Patient denies Are you ? : No CLIFFORD OVALLES LPN - 06/11/2015 10:05 CDT Subjective Pain Symptoms : Yes CLIFFORD OVALLES LPN - 06/11/2015 10:05 CDT Pain Scale Pain Scale Verbal 0-10 : Open CLIFFORD OVALLES LPN - 06/11/2015 10:05 CDT Pain Pain Assessment Grid Pain 1 Location : Lower back Intensity : 4 CLIFFORD OVALLES LPN - 06/11/2015 10:05 CDT Dependent Habits Tobacco Use/Currently Using : No Exposure to Tobacco Smoke : Other: never Smoking Status : Never smoker CLIFFORD OVALLES PRADEEP - 06/11/2015 10:05 CDT Tobacco Use Grid Other Tobacco Frequency : never CLIFFORD OVALLES PRADEEP - 06/11/2015 10:05 CDT Caffeine Use Grid Caffeine Use : Current Type : Soft drinks Frequency : Daily ROCIO OVALLES Josee PRADEEP - 06/11/2015 10:05 CDT Source: [facility] POWERCHART Document Id: [id number] CDT!40 documented in this encounter Plan of Treatment Upcoming Encounters Date Type Specialty Care Team Description 08/17/2022 Procedure visit Neurology Marina Winter M.D., M.P.H. [address] [address] [phone] (Wo rk) Scheduled Procedures Name Priority Associated Diagnoses Date/Time LIFT THIGH Excessive And Redundant Skin And Subcutaneous Tissue documented as of this encounter Procedures Procedure Name Priority Date/Time Associated Comments Diagnosis HXUR % DYSMORPHIC RBC Routine 06/11/2015 11:14 Re sults for this AM CDT procedure are i n the results section. URINALYSIS WITH Routine 06/11/2015 11:14 Results for this MICROSCOPIC AM CDT procedure are i n the results section. THYROPEROXIDASE (TPO) Routine 06/11/2015 11:06 Re sults for this ABS, S AM CDT procedure are i n the results section. THYROID-STIMULATING Routine 06/11/2015 11:06 Resu lts for this HORMONE-SENSITIVE AM CDT procedure are in (S-TSH) the results section. BASIC METABOLIC PANEL, Routine 06/11/2015 11:06 R esults for this S/P AM CDT procedure are i n the results section. documented in this encounter Results HXUR % DYSMORPHIC RBC (06/11/2015 11:14 AM CDT) P athologist Signature Dysmorphic RBC <=25 <=25 POWERCHART Specimen Anatomical Collection Method Collection Time Receive d Time (Source) Location / / Volume Laterality Urine, First 06/11/2015 11:14 06/11/2015 Voided AM CDT 11:14 AM CDT Annemarie Montiel M.D. LAB HISTORICAL ORDERS Performing Organization Address City/State/ZIP Code Phon e Number POWERCHART (ABNORMAL) Urinalysis, Complete, Includes Microscopic (06/11/2015 11:14 AM CDT) Patholo gist Method Time Signature HXUR WBC. 11-20 (A) None Seen POWERCHART HPF HXUR RBC. 3-10 (A) None Seen POWERCHART HPF Mucus Present (A) None Seen POWERCHART Squamous 11-20 (A) None Seen POWERCHART Epithelial HPF HXUr Color STRAW POWERCHART Clarity Clear Clear POWERCHART Glucose Negative Negative POWERCHART MGDL HXBILIRUBIN Small (A) Negative POWERCHART Ketones, QL(U) Negative Negative POWERCHART MGDL Specific >=1.030 (A) POWERCHART [place], POCT, U pH, POCT, Urine 5.5 POWERCHART Protein, Ur, Dip Negative Negative POWERCHART MGDL Urobilinogen 0.2 0.2 MGDL POWERCHART HXNITRITE Negative Negative POWERCHART HXBLOOD Moderate Negative POWERCHART (A) Leukocyte Negative Negative POWERCHART Esterase Specimen (Source) Anatomical Collection Method Collection Time Re ceived Time Location / / Volume Laterality Urine, First 06/11/2015 11:14 Voided AM CDT Annemarie Montiel M.D. LAB URINE ORDERABLES Performing Organization Address [facility] Code Phon e Number POWERCHART (ABNORMAL) BMP (Basic Metabolic Panel) (06/11/2015 11:06 AM CDT) P athologist Signature BUN (Blood Urea 8 6 - 21 POWERCHART Nitrogen), S MGDL Chloride, S 104 98 - 107 POWERCHART [place] CO2 Total 23 22 - 29 POWERCHART [place] Creatinine 0.5 (L) 0.6 - 1.1 POWERCHART MGDL Glucose 106 70 - 139 POWERCHART MGDL Calcium, Total, 8.9 8.0 - 10.3 POWERCHART S MGDL Sodium, S 140 135 - 145 POWERCHART [place] Potassium, S 3.8 3.6 - 5.2 POWERCHART [place] HXeGFR (MDRD) >60 >=60 POWERCHART [id number] eGFR >60 >=60 POWERCHART Black/ [id number] Armenian Specimen (Source) Anatomical Collection Method Collection Time Re ceived Time Location / / Volume Laterality Blood 06/11/2015 11:06 AM CDT Annemarie Montiel M.D. LAB BLOOD ADD-ON Performing Organization Address City/State/ZIP Code Phon e Number POWERCHART Thyroperoxidase (TPO) Antibodies (06/11/2015 11:06 AM CDT) Patholo gist Method Time Signature Thyroperoxidase Ab, 8.1 <9.0 POWERCHART S INTUML Comment: Test Performed by: [place] [address] High School Guidance Counselor: Hardik Burroughs II, M.D., Ph.D. Specimen (Source) Anatomical Collection Method Collection Time Re ceived Time Location / / Volume Laterality Blood 06/11/2015 11:06 AM CDT Annemarie Montiel M.D. LAB BLOOD ADD-ON Performing Organization Address City/State/ZIP Code Phon e Number POWERCHART Thyroid-Stimulating Hormone-Sensitive (s-TSH) (06/11/2015 11:06 AM CDT) P athologist Signature TSH 1.01 0.27 - 4.20 POWERCHART (Thyrotropin) MIUL Specimen (Source) Anatomical Collection Method Collection Time Re ceived Time Location / / Volume Laterality Blood 06/11/2015 11:06 AM CDT Annemarie Montiel M.D. LAB BLOOD ADD-ON Performing Organization Address City/State/ZIP Code Phon e Number POWERCHART documented in this encounter Visit Diagnoses Not on filedocumented in this encounter Additional Health Concerns Assessment Noted Time PHQ-9 Depression Total Score: 13 06/14/2015 3:56 PM CD T documented as of this encounter
--- OUTSIDE RECORDS SUMMARY | 2022-07-24 15:17 | XMS_ITS | Encounter Summary ---
:1985 Author Organization [facility] Address [address] [place] [address] Care Team Providers Name Role Phone Unavailable Primary Care Provider Unavailable Encounter Details Date Type Department Care Team Description 09/13/2015 Hospital Encounter HX NO MAPPING Olena Putnam M.D. [address] [place], [place] [phone] (Wo rk) Social History [...] often do you attend oriental orthodox or mandaen Never 07/04/2019 services? 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 [address] [phone] (Wo rk) Scheduled Procedures Name Priority Associated Diagnoses Date/Time LIFT THIGH Excessive And Redundant Skin And Subcutaneous Tissue documented as of this encounter Visit Diagnoses Not on filedocumented in this encounter Additional Health Concerns Assessment Noted Time PHQ-9 Depression Total Score: 13 06/14/2015 3:56 PM CD T documented as of this encounter
--- OUTSIDE RECORDS SUMMARY | 2022-07-24 15:17 | XMS_ITS | Encounter Summary ---
:1985 Author Organization [facility] Address [address] [place] [address] Care Team Providers Name Role Phone Unavailable Primary Care Provider Unavailable Encounter Details Date Type Department Care Team Description 05/06/2015 Hospital Encounter HX RST EMERGENCY Provider, Historic al TRAUMA UNI Social History Tobacco Use Types Packs/Day Years [...] How often do you attend congregation or jainism Never 07/04/2019 services? 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 [address] [phone] (Wo rk) Scheduled Procedures Name Priority Associated Diagnoses Date/Time LIFT THIGH Excessive And Redundant Skin And Subcutaneous Tissue documented as of this encounter Visit Diagnoses Not on filedocumented in this encounter Additional Health Concerns Assessment Noted Time PHQ-9 Depression Total Score: 6 02/15/2015 4:18 PM CDT documented as of this encounter
--- OUTSIDE RECORDS SUMMARY | 2022-07-24 15:17 | XMS_ITS | Encounter Summary ---
:1985 Author Organization [facility] Address [address] [place] [address] Care Team Providers Name Role Phone Unavailable Primary Care Provider Unavailable Encounter Details Date Type Department Care Team Description 10/24/2013 Hospital Encounter HX [facility] Grandalfred, Lizandro Olguin, P.A.-C., P.A. [address] [place], [place] [phone] (Wo rk) Social History [...] How often do you attend lutheran or latter day Never 07/04/2019 services? 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 Last Filed Vital Signs Vital Sign Reading Time Taken Comments Blood Pressure 122/78 10/24/2013 1:22 PM INSPECTOR HAIRSPRING Pulse 72 10/24/2013 1:22 PM INSPECTOR HAIRSPRING Temperature - - Respiratory Rate 16 10/24/2013 1:22 PM INSPECTOR HAIRSPRING Oxygen Saturation - - Inhaled Oxygen Concentration - - Weight 104 kg (229 lb 4.5 oz) 10/24/2013 1:22 PM INSPECTOR HAIRSPRING Height 163 cm (5' 4.17) 10/24/2013 1:22 PM INSPECTOR HAIRSPRING Body Mass Index 39.14 10/24/2013 1:22 PM INSPECTOR HAIRSPRING documented in this encounter Progress Notes Lexii Minor P.A.-C., Karla - 10/24/2013 1:10 PM CST [id number] CHIEF COMPLAINT/REASON FOR VISIT Refill phentermine, discuss weight loss. HISTORY OF PRESENT ILLNESS Maria Alejandra is a pleasant 28-year-old female. She has struggled with obesity and weight problems pretty much all of her life. She has been successful at losing about 60 pounds with the use of phentermine. She is tolerating phentermine without adverse effects. She would like a refill of this. She has noticed now that she has had weight loss. She has excessive skin in the arms and pannus region. She is wondering about referral for this and I will refer her to Dr. Ingram plastic surgery to discuss further options. She is otherwise offering no further complaints or concerns at this time. MEDICATIONS Reviewed [facility] EMR dated 10/24/2013 and no changes ALLERGIES No known drug allergies VITAL SIGNS Reviewed [facility] EMR dated 10/24/2013 and no changes HEIGHT: 163 cm WEIGHT: 104 kg BMI: 39.14 PHYSICAL EXAMINATION GENERAL: Pleasant well-appearing obese female in no acute distress. Alert, cooperative. MENTAL: Mood and affect appropriate. Further physical exam otherwise not performed today. IMPRESSION/REPORT/PLAN Obesity with weight loss counseling and management. PLAN: I did renew phentermine 37.5 mg daily 1-month supply. She will return on a monthly basis for nurse visit to have weight and blood pressure checked. She is aware of the potential risks and side effects of the phentermine and is tolerated this well without adverse symptoms. With regards to the excessive skin due to weight loss, a referral was placed to a plastic surgery, Dr. Ingram, to discuss further options and treatments. She will continue healthy lifestyle and was congratulated on her efforts thus far. Lexii Minor P.A.-C./gia Electronically Signed By: LEXII MINOR PA-C On: 10/28/2013 12:59 PM Source: [facility] MHSDOLBEYNONRADSYS Document Id: [id number] ECTOR HAIRSPRING documented in this encounter Miscellaneous Notes Miscellaneous - Chapis Davalos L.P.N. - 10/24/2013 1:22 PM INSPECTOR HAIRSPRING Adult Pattern Technician Intake/History Adult Pattern Technician Intake/History Entered On: 10/24/2013 13:26 INSPECTOR HAIRSPRING Performed On: 10/24/2013 13:22 INSPECTOR HAIRSPRING by CHAPIS DAVALOS Intake Chief Complaint : Phentermine refill. Temperature Oral : 36.5 DegC(Converted to: 97.7 DegF) Peripheral Pulse Rate : 72 /min Respiratory Rate : 16 /min Systolic Blood Pressure : 122 mmHg Diastolic Blood Pressure : 78 mmHg NIBP Mean : 93 mmHg Height : 163 cm(Converted to: 5 ft 4 inch(es), 64.17 inch(es)) Actual Weight : 104 kg(Converted to: 229 lb 4 oz) Dosing Weight Clinic : 104 kg Clinic BSA : 2.17 Body Mass Index : 39.14 kg/m2 CHAPIS DAVALOS - 10/24/2013 13:22 INSPECTOR HAIRSPRING General Info Information Given By : Patient Languages : Italian CHAPIS DAVALOS - 10/24/2013 13:22 INSPECTOR HAIRSPRING Subjective Pain Symptoms : No CHAPIS DAVALOS - 10/24/2013 13:22 INSPECTOR HAIRSPRING Dependent Habits Tobacco Use/Currently Using : No Exposure to Tobacco Smoke : Other: never Smoking Status : Never smoker CHAPIS DAVALOS - 10/24/2013 13:22 INSPECTOR HAIRSPRING Tobacco Use Grid Other Tobacco Frequency : never CHAPIS DAVALOS - 10/24/2013 13:22 INSPECTOR HAIRSPRING Caffeine Use Grid Caffeine Use : Current Type : Soft drinks Frequency : Daily CHAPIS DAVALOS - 10/24/2013 13:22 INSPECTOR HAIRSPRING Source: [facility] POWERCHART Document Id: [id number] INSPECTOR HAIRSPRING!31 ECTOR HAIRSPRING documented in this encounter Plan of Treatment Upcoming Encounters Date Type Specialty Care Team Description 08/17/2022 Procedure visit Neurology Marina Winter M.D., M.P.H. [address] [phone] (Wo rk) Scheduled Procedures Name Priority Associated Diagnoses Date/Time LIFT THIGH Excessive And Redundant Skin And Subcutaneous Tissue documented as of this encounter Visit Diagnoses Not on filedocumented in this encounter Additional Health Concerns Assessment Noted Time PHQ-9 Depression Total Score: 5 07/09/2013 9:08 AM CDT documented as of this encounter
--- OUTSIDE RECORDS SUMMARY | 2022-07-24 15:17 | XMS_ITS | Encounter Summary ---
:1985 Author Organization [facility] Address [address] [place] [address] Care Team Providers Name Role Phone Unavailable Primary Care Provider Unavailable Encounter Details Date Type Department Care Team Description 02/17/2014 Hospital Encounter HX [facility] Grandalfred, Lizandro Olguin, P.A.-C., P.A. [address] [place], [place] [phone] (Wo rk) Social History [...] 03/29/2020 relatives? How often do you attend denominational or orthodox Never 07/04/2019 services? 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 - 02/17/2014 11:06 AM CDT [id number] CHIEF COMPLAINT/REASON FOR VISIT Obesity, contraception. HISTORY OF PRESENT ILLNESS Maria Alejandra is a pleasant 28-year-old female, who has struggled with her weight throughout her entire life. Over the past year she has been successful at losing about 60 pounds with the use of phentermine.BMI remains at 39. She is here today to discuss her recent clinic visit with Dr. Ingram regarding excessive skin in the pannus and upper extremities. She was not very happy about this appointment. He hasrecommended that she continue to lose weight down to 165 pounds which would put her at a BMI no greater than 27 before he is interested in surgical intervention for her. Maria Alejandra's goal weight is about 185. She actually feels much better just with the weight that she has lost however she is very irritated with the excessive was skin and does develop skin rashes in the pannus. She will check with her insurance regarding other possible coverage and I did offer her names of a couple plastic surgeons in the [facility] area that she might consider a second opinion or consultation with. She has concerns about her Nexplanon. This was placed on 06/04/2013 in the left upper arm. She was not certain that she could feel both ends of the device; however on exam today I am able to clearly feel the Nexplanon device and it feels completely normal. MEDICATIONS Reviewed [facility] EMR dated 02/17/2014 and no changes. ALLERGIES No known drug allergies. VITAL SIGNS Reviewed [facility] EMR dated 02/17/2014 and no changes. PHYSICAL EXAMINATION GENERAL: Pleasant, well-appearing female in no acute distress. Alert, pleasant, cooperative. SKIN: Warm and dry. No rashes today. I am able to easily palpate Nexplanon device in the left upper arm. IMPRESSION/REPORT/PLAN 1. Obesity with diet counseling and management. PLAN: She will continue on her phentermine 37.5 mg daily. I recommend she try taking a half dose in the morning and a half tablet in the early afternoon. Continue with healthy lifestyle modification. Increasing physical exercise and activity. With regards to the excessive skin in carrie concern, as above she is given the name of [facility] as well as [facility] Plastic surgery Department and [facility] in [place]. She will check with them regarding consultation and willfollow up as needed. 1. Contraception management. PLAN: Reassurance was provided. The Nexplanon appears to be in appropriate position, and working well. Follow up as needed. Lexii Minor P.A.-C./pepe Electronically Signed By: LEXII MINOR PA-C On: 02/21/2014 01:21 PM Source: [facility] MHSDOLBEYNONRADSYS Document Id: [id number] documented in this encounter Miscellaneous Notes Miscellaneous - Conversion, Historical Provider Ser - 02/18/2014 10:07 AM CDT PHQ-9 PHQ-9 Entered On: 02/18/2014 10:08 CDT Performed On: 02/18/2014 10:07 CDT by AJAY OG LPN PHQ-9 Little interest or pleasure in doing things : Not at all Feeling down, depressed, or hopeless : Several days Trouble falling or staying asleep, or sleeping too much : Not at all Feeling tired or having little energy : More than half the days Poor appetite or overeating : Not at all Feeling bad about yourself or that you are a failure : Several days Trouble concentrating on things : Several days Moving or speaking slowly; restless or fidgety : Not at all Thoughts that you would be better off /hurting self : Not at all PHQ-9 Calculated Score : 5 Problems make work, home, or dealing with others : Somewhat difficult AJAY OG LPN - 02/18/2014 10:07 CDT Source: [facility] POWERCHART Document Id: [id number] CDT!13 Miscellaneous - Conversion, Historical Provider Ser - 02/17/2014 12:01 PM CDT Adult Director Multimedia Intake/History Adult Director Multimedia Intake/History Entered On: 02/17/2014 12:04 CDT Performed On: 02/17/2014 12:01 CDT by AJAY OG LPN Intake Chief Complaint : ? about existing Nexplanon inplant. Follow up Dr. Ingram. Temperature Oral : 36.7 DegC(Converted to: 98.1 DegF) Peripheral Pulse Rate : 80 /min Respiratory Rate : 16 /min Heart Rhythm : Regular Systolic Blood Pressure : 112 mmHg Diastolic Blood Pressure : 76 mmHg NIBP Mean : 88 mmHg BP Location : Right upper extremity Blood Pressure Cuff Size : Large Oxygen Therapy : Room air Actual Weight : 108.2 kg(Converted to: 238 lb 9 oz) Weight Source : Standing scale Dosing Weight Clinic : 108.2 kg AJAY OG LPN - 02/17/2014 12:01 CDT General Info Information Given By : Patient Languages : Swazi AJAY OG LPN - 02/17/2014 12:01 CDT Subjective Pain Symptoms : No AJAY OG LPN - 02/17/2014 12:01 CDT Dependent Habits Tobacco Use/Currently Using : No Exposure to Tobacco Smoke : Other: never Smoking Status : Never smoker AJAY OG LPN - 02/17/2014 12:01 CDT Tobacco Use Grid Other Tobacco Frequency : never AJAY OG LPN - 02/17/2014 12:01 CDT Caffeine Use Grid Caffeine Use : Current Type : Soft drinks Frequency : Daily AJAY OG LPN - 02/17/2014 12:01 CDT Source: [facility] POWERCHART Document Id: [id number] CDT!33 documented in this encounter Plan of Treatment Upcoming Encounters Date Type Specialty Care Team Description 08/17/2022 Procedure visit Neurology Marina Winter M.D., M.P.H. [address] [phone] (Wo rk) Scheduled Procedures Name Priority Associated Diagnoses Date/Time LIFT THIGH Excessive And Redundant Skin And Subcutaneous Tissue documented as of this encounter Visit Diagnoses Not on filedocumented in this encounter Additional Health Concerns Assessment Noted Time PHQ-9 Depression Total Score: 5 02/18/2014 10:07 AM CD T documented as of this encounter
--- OUTSIDE RECORDS SUMMARY | 2022-07-24 15:17 | XMS_ITS | Encounter Summary ---
:1985 Author Organization [facility] Address [address] [place] [address] Care Team Providers Name Role Phone Unavailable Primary Care Provider Unavailable Encounter Details Date Type Department Care Team Description 05/12/2015 Hospital Encounter HX [facility] Meche Montiel M.D. [address] [place] [phone] (Wo rk) Social History Tobacco [...] How often do you attend faith or yarsani Never 07/04/2019 services? 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 - 05/12/2015 4:21 PM CDT [id number] CHIEF COMPLAINT / REASON FOR VISIT ER followup . HISTORY OF PRESENT ILLNESS Nancy is a 30-year-old female who presents to the clinic today for an ER followup. Nancy has a history of anxiety and depression. Nancy presented to the ER on 05/05 for room spinning dizziness. Labs that were drawn in the ER were normal except for CO2 was low suggestive of hyperventilation. Nancy reports that she had this dizziness 05/05-05/08. This restarted yesterday and is worse today. Today she feels lightheaded and shaky. She has had mild nausea and intermittent headaches. In addition she reports swelling in the hands and feet for the past few months. There is a family history of Menieres disease. Denies hearing change. REVIEW OF SYSTEMS All systems reviewed are negative, except for those noted in the HPI. CURRENT MEDICATIONS Reviewed and updated per the EMR as of 05/12/2015. ALLERGIES No known drug allergies. VITAL SIGNS HEIGHT: 164 cm. WEIGHT: 127.9 kg. PULSE: 82 /min. SYSTOLIC: 128 mmHg. DIASTOLIC: 74 mmHg. PHYSICAL EXAM GENERAL: Alert, oriented female, well developed and well nourished. SKIN: Intact. No rash or lesion on the exposed skin. No ecchymosis. EYES: Pupils are equal and reactive to light. No nystagmus. ENT: TMs are clear, normal light reflex and no effusion. Oropharynx shows mucous membranes are moistand pink. Tonsils are not hypertrophic. NECK: Neck is supple. HEART: Regular rate and rhythm. Normal S1 and S2. No murmur or bruit. LUNGS: Clear. No wheezes or crackles. Normal inspiratory to expiratory ratio. EXTREMITIES: Normal range of motion of all extremities. No edema. MENTAL: Appropriate mood and affect. Normal judgement and insight. NEURO: Cranial nerves II-XII grossly intact. No focal deficit. Epleys maneuvers did not improve or worsen the vertigo. DTRs 2+ in the patella and biceps bilaterally. IMPRESSION / REPORT / PLAN 1. Vertigo. Today we discussed that this may be a result of fluid retention and eustachian tube dysfunction. Also discussed the possibility of benign positional vertigo, though this seems less likely given her clinical picture. I do not suspect Menieres given the lack of hearing change and no tinnitus. 2. Elevated blood pressure without Hypertension. Plan: 1. Prescription given for Meclizine 25 mg three times daily as needed for dizziness and Hydrochlorothiazide 25 mg daily. Followup in one month for blood pressure check and labs with Lexii Minor. If her dizziness is not improving in 3-4 weeks I recommend a referral to the [facility]. This document serves as a record of services personally performed by Annemarie Montiel MD. It was created on their behalf by Carolina Butt, a trained certified medical technician. The creation of this record is based on the scribe's personal observations and the provider's statements to them. This document has been ch ecked and approved by the attending provider. Annemarie Montiel M.D./maribel Electronically Signed By: ANNEMARIE MONTIEL MD On: 05/30/2015 02:44 PM Source: [facility] MHSDOLBEYNONRADSYS Document Id: [id number] documented in this encounter Miscellaneous Notes Miscellaneous - Annemarie Montiel M.D. - 05/12/2015 6:17 PM CDT Ambulatory Patient Summary [facility] [address] [place], [place] [phone] Visit Information Name: NANCY PHILLIPS [facility] Number: [id number] Current Date: 05/12/2015 18:17:28 Physicians Attending Provider: ANNEMARIE MONTIEL MD Primary Care Provider: LEXII MINOR PA-C [...] 1 Tablet(s), Oral, once a day [facility] [address] [place] [address] hydrOXYzine (Vistaril 25 mg oral capsule) 1 cap, Oral, four times a day as needed for Migraine headache meclizine (meclizine 25 mg oral tablet) 1 Tablet(s), Oral, three times a day as needed for DizzinessNew Routed to [facility] [address] [place] [address] naproxen (Naprosyn 500 mg oral tablet) 1 [...] once in 2 hours venlafaxine (Effexor XR 75 mg oral capsule, extended release) 1 cap, Oral, once a day for anxiety/depression Stop Taking the Following Medications: Medication list as of 05-12-15 18:17 Attention: If you have any medications at [...] Electronically Signed By: ANNEMARIE MONTIEL MD Signed On:12-MAY-2015 18:17:10 Your Allergies & Intolerances Substance Reaction Symptoms [...] if you dont have one. Go to [email or web address] and click on Create Your Account. Then, follow the directions to complete the online form. Youll be asked for your [facility] number which you can find at the top of this document. Your Goals/Additional instructions: Source: [facility] POWERCHART Document Id: [id number] Miscellaneous - Annemarie Montiel M.D. - 05/12/2015 6:17 PM CDT Ambulatory Discharge Medication List [facility] [address] [place] [phone] Visit Information Name: NANCY PHILLIPS [facility] Number: [id number] Visit Date: 05/12/2015 18:17:26 Attending Provider: ANNEMARIE MONTIEL MD Primary Care Provider: LEXII MINOR PA-C [...] 1 Tablet(s), Oral, once a day [facility] [address] [place] [address] hydrOXYzine (Vistaril 25 mg oral capsule) 1 cap, Oral, four times a day as needed for Migraine headache meclizine (meclizine 25 mg oral tablet) 1 Tablet(s), Oral, three times a day as needed for DizzinessNew [facility] [address] [place] [address] naproxen (Naprosyn 500 mg oral tablet) 1 [...] once in 2 hours venlafaxine (Effexor XR 75 mg oral capsule, extended release) 1 cap, Oral, once a day for anxiety/depression Stop Taking the Following Medications: Medication list as of 05-12-15 18:17 Attention: If you have any medications at [...] Electronically Signed By: ANNEMARIE MONTIEL MD Signed On:12-MAY-2015 18:17:10 Additional Information: Source: [facility] POWERCHART Document Id: [id number] Miscellaneous - Jorge Ovalles L.P.N. - 05/12/2015 5:08 PM CDT Adult Compounder Flavorings Intake/History Adult Compounder Flavorings Intake/History Entered On: 05/12/2015 17:16 CDT Performed On: 05/12/2015 17:08 CDT by JORGE OVALLES LPN Intake Chief Complaint : ER follow for vertigo. A lot of dizziness, light headed, nauseous started last Sunday; swollen hands and feet. High blood pressure in ER. Peripheral Pulse Rate : 82 /min Systolic Blood Pressure : 128 mmHg Diastolic Blood Pressure : 74 mmHg NIBP Mean : 92 mmHg BP Location : Right upper extremity Blood Pressure Cuff Size : Large Actual Weight : 127.9 kg(Converted to: 282 lb 0 oz) Weight Source : Standing scale Dosing Weight Clinic : 127.9 kg JORGE OVALLES LPN - 05/12/2015 17:08 CDT General Info Information Given By : Patient Preferred Communication Mode : Verbal Languages : Yakut Is Patient Female and 13-50 no hysterectomy : Yes Status : Patient denies Are you ? : No JORGE OVALLES LPN - 05/12/2015 17:08 CDT Subjective Pain Symptoms : No JORGE OVALLES LPN - 05/12/2015 17:08 CDT Dependent Habits Tobacco Use/Currently Using : No Exposure to Tobacco Smoke : Other: never Smoking Status : Never smoker JORGE OVALLES LPN - 05/12/2015 17:08 CDT Tobacco Use Grid Other Tobacco Frequency : never JORGE OVALLES LPN - 05/12/2015 17:08 CDT Caffeine Use Grid Caffeine Use : Current Type : Soft drinks Frequency : Daily JORGE OVALLES LPN - 05/12/2015 17:08 CDT Source: [employer] POWERCHART Document Id: [id number] CDT!33 documented in this encounter Plan of Treatment Upcoming Encounters Date Type Specialty Care Team Description 08/17/2022 Procedure visit Neurology Marina Winter M.D., M.P.H. [address] [place], [place] [phone] (Wo rk) Scheduled Procedures Name Priority Associated Diagnoses Date/Time LIFT THIGH Excessive And Redundant Skin And Subcutaneous Tissue documented as of this encounter Visit Diagnoses Not on filedocumented in this encounter Additional Health Concerns Assessment Noted Time PHQ-9 Depression Total Score: 6 02/15/2015 4:18 PM CDT documented as of this encounter
--- OUTSIDE RECORDS SUMMARY | 2022-07-24 15:17 | XMS_ITS | Encounter Summary ---
:1985 Author Organization [facility] Address [address] [place] [address] Care Team Providers Name Role Phone Unavailable Primary Care Provider Unavailable Encounter Details Date Type Department Care Team Description 11/04/2014 Hospital Encounter HX [facility] Grandalfred, Lizandro Olguin, P.A.-C., P.A. [address] [place], [place] [phone] (Wo rk) Social History [...] How often do you attend scientologist or mosque Never 07/04/2019 services? 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 - 11/04/2014 10:28 AM CST [id number] CHIEF COMPLAINT/REASON FOR VISIT Preventative health maintenance well-woman exam. HISTORY OF PRESENT ILLNESS Nancy is a 29-year-old female, here today for preventative health maintenance/well-woman exam. Toshiahas struggled with weight issues and obesity for quite some time. She actually is meeting with [facility] in November to discuss options for bariatric surgery. She previously had used phentermine for weight loss, however this does cause headaches. We diddiscuss other options, however her insurance likely will not cover other prescription weight loss medications and these do tend to be quite expensive, as well as discussed the risks and side effects ofthem. She will follow up with [facility] next month. She has been having more migraine headaches. She does use Naprosyn and Vistaril as needed. She does need refill of these medications. She has been intolerant to Imitrex in the past. She has not used any other migraine abortive agents, and we did discuss a trial of other agents and will try Maxalt. She has a history of anxiety and depression. She was recently started on venlafaxine and has increased this to 75 mg daily. She is tolerating this without adverse effects. Does need a refill of her venlafaxine. GYNECOLOGICAL HISTORY She is a AB 1. LMP August 2014. She has previously had used Nexplanon for contraception. Thiswas removed earlier this month and she was started on Ortho- Cyclen for contraception. She has no history of abnormal Pap smears. Most recent Pap smear November 2012. She does desire STI screening today.Has had a previous history of Chlamydia treated. She is in a monogamous relationship. MEDICATIONS 1. Ortho-Cyclen daily. 2. Effexor XR 75 mg daily. 3. Naprosyn 500 mg 2 times daily as needed migraine. 4. Vistaril 25 mg 4 times daily as needed migraines. ALLERGIES No known drug allergies. IMMUNIZATIONS Influenza vaccine received at outside facility earlier this month. Tdap February 2013. She has completed the hepatitis B vaccine series. SYSTEMS REVIEW GENERAL: Negative for recent fever, weight loss, extreme fatigue. EYES: Negative for double vision, sudden loss of vision. ENT: Negative for sore throat, runny nose, ear pain, hearing loss. HEART: Negative for chest pain, pain in legs relieved with rest, irregular heartbeats. RESPIRATORY: Negative forcough, wheezing, shortness of breath, excessive snoring. GASTROINTESTINAL: Negative for nausea, vomiting, heartburn, abdominal pain, bloating, constipation, diarrhea, blood in stools. GENITOURINARY: LMP August 2014. Negative for irregular menses, vaginal bleeding after menopause, frequent or painful urination, bloody urine. SKIN: Negative for rash, sore(s), excessive bruising, change of a mole. NEURO LOGICAL: Negative for headache, persistent weakness or numbness on one side of the body, falling. MUSCULOSKELETAL: Negative for joint pain, muscle weakness, back pain. MENTAL HEALTH: Negative for depression, anxiety, suicidal thoughts. LYMPHATICS: Negative for excessive thirst or urination, cold or heat intolerance, breast mass, swelling in legs, feet or hands. BLOOD: Negative for unusual bruising orbleeding, enlarged lymph nodes. PAST MEDICAL/SURGICAL HISTORY 1) Depression and anxiety. 2) Migraines. 3) Obesity. 4) Gestational diabetes. 5) Herpes genitalia. 6) History of chlamydia treated in 2009. 7) C-sections x3 in June 2005, February 2011, and May 2013 8) Previous jaw surgery. 9) Tonsillectomy and adenoidectomy. 10) Laparoscopic cholecystectomy in 2005. 11) Laparoscopy with adhesion removal in 2008. 12) Endometriosis with laparoscopy in 1999. 13) without complications November 2006. SOCIAL HISTORY She is engaged to be in April 2015. She has 3 children, ranging in age from 9 to 1 year. No tobacco products. No alcohol or illicit drug use. She does drink soft drink daily. She tries to stay physically active and is working on exercise routine. Does try to get dietary calcium. Does wear her seatbelt. FAMILY HISTORY Mother with hypertension. She does not have a lot a contact with her father or paternal side. She does not know a lot about their paternal family history, but does note there is some heart disease, hypertension, hyperlipidemia, diabetes as well as alcohol abuse and mental health diagnosis. Brother with substance abuse problems. No family history of breast, ovarian or colon cancer. No bleeding or clotting disorders. No anesthesia reactions. VITAL SIGNS Temp 36.6, pulse 74, respirations 18, blood pressure 118/70, height 164 cm, weight 124.5 kg, BMI 46.29. PHYSICAL EXAMINATION GENERAL: Well-appearing obese female, in no acute distress. Alert and cooperative. SKIN: Warm and dry without rashes. EYES: PERRLA. EOMs intact. Normal conjunctivae and lids. Wearing corrective lenses. ENT: TMs clear bilaterally. Nares without congestion. Oral mucosa moist. Pharynx without erythema. Dentition in good repair. LYMPH NODES: No cervical or supraclavicular adenopathy. Thyroid smooth, not enlarged. No nodules. PERIPHERAL: Strong radial and pedal pulses. Capillary refill brisk. HEART: Regular rate and rhythm with normal S1 and S2. No murmur, rub, or gallop. LUNGS: Clear throughout. Normal respiratory rate and effort. ABDOMEN: Soft, nontender. No appreciable masses or hepatosplenomegaly. Bowel sounds present. PELVIS: Exam deferred per patient request. SPINE: No vertebral tenderness. EXTREMITIES: Normal range of motion. No lower extremity edema. MENTAL STATUS: Mood and affect appropriate. NEUROLOGIC: Cranial nerves II through XII grossly intact. Has +2 normoactive biceps and patellar DTRs bilaterally. IMPRESSION/REPORT/PLAN 1. Obesity. PLAN: She is scheduled for consultation visit with [facility] to further evaluate if she is a candidate for bariatric surgery. I did not perform any laboratories today as these will be performed as part of her workup. She will continue to work on healthy lifestyle and increasing physical exercise and activity. Will follow up as needed. 2. Sexually transmitted infection screening. PLAN: Urine GC and chlamydia ordered. She will be notified of results when available and further treatment as appropriate. 3. Migraine headaches. PLAN: I did renew her Naprosyn 500 mg 2 times daily as needed also Vistaril 25 mg up to 4 times daily as needed for migraine headaches. She is aware of the potential risk for rebound headaches and doesnot use her NSAIDs more than 2 or 3 times weekly. In addition, we will try Maxalt 5 mg for migraine headache, may repeat in 1 to 2 hours as needed, #12 with 3 refills provided. Usual risks, benefits, side effects, and directions were discussed. To follow up as needed. 4. Anxiety and depression. PLAN: Venlafaxine XR 75 mg daily. Refills for 1 year. Follow up as needed. 5. Contraception counseling and management. PLAN: Her Ortho-Cyclen is current. Will follow up as needed. 6. Preventative health maintenance/well-woman exam. PLAN: Age-appropriate healthy lifestyle choices and health maintenance issues were discussed. Instructed to have a complete physical exam annually. Pap smear in November 2012, will be due again in November 2015. Verbal recommendation for regular eye and dental exams. She is current with these. Reinforced self-breast exam. She does do these periodically. Screening mammogram at age 41. Instructed on healthy diet, including adequate calcium and regular exercise program, 20 to 30 minutes most days of the week. Advised to wear seatbelts when driving or riding in motor vehicles. No laboratories were performed today as she will be undergoing evaluation for bariatric surgery in the future. She will otherwise follow up as needed. Jenae Minor P.A.-C./pepe Electronically Signed By: JENAE MINOR PA-C On: 11/11/2014 06:29 PM Source: [facility] MHSDOLBEYNONRADSYS Document Id: [id number] HT DECK OFFICER documented in this encounter Miscellaneous Notes Telephone Encounter - Conversion, Historical Provider Ser - 05/06/2015 9:22 AM CDT *Phone Message- Jenae Minor Document Contains Addenda Addendum by TAWNYA CHAVES SRN on 06 May 2015 10:34:02 CDT Patient was transferred to scheduling to make a follow up ER appt. for vertigo. From: BRENT AGUILAR To: JACEY KUMARbackend tester Med [facility]; Sent: 05/06/2015 09:22:22 CDT Subject: *Phone Message- Jenae Minor Caller is: ( x) Patient ( ) Mother ( ) Father ( ) Spouse ( ) Daughter ( ) Son ( ) Pharmacy ( ) Other: Physician: Jenae Minor Patient MRN #: Reason for Call: Message: S: Pt called clinic to talk to nurse B: not improving recent ER visit A: R: Please call pt at [phone] Advice/Action: Source used: ( ) Verbalizes understanding [...] back cell phone number ( ) [facility] ?.?? Document Id: [id number] Miscellaneous - Jenae Minor PSandra-Lexy., P.A. - 11/06/2014 5:24 PM FLIGHT DECK OFFICER Results Notification Document Contains Addenda Addendum by OTIS ROBERT LPN on 09 November 2014 17:36:04 FLIGHT DECK OFFICER Patient notified of results. From: JENAE MINOR PA-C To: JACEY Minor Nurse; Sent: 11/06/2014 17:24:12 FLIGHT DECK OFFICER ! Show up: 11/06/2014 17:24:12 FLIGHT DECK OFFICER Subject: Results Notification Actions: Notify patient of results Reminder Comments: Neg GC/Chlam Results: Date Result Name Value Ref Range 11/04/2014 12:24 C trach Amp Src-[place] URINE 11/04/2014 12:24 C trach Amp RNA-[place] Negative (Negative - ) 11/04/2014 12:24 N gonor Amp DNA-[place] Negative (Negative - ) 11/04/2014 12:24 N gonor Amp Src-[place] URINE Source: [employer] Document Id: [id number] Electronically signed by Conversion, [facility] Pick And Shovel Worker [id number] at 04/03/2017 4:39 PM CDT Miscellaneous - Jenae Minor P.A.-Lexy., P.A. - 11/04/2014 1:19 PM FLIGHT DECK OFFICER Ambulatory Patient Summary [facility] [address] [place] [id number] Visit Information Name: TAYENANCY KEYS [facility] Number: [id number] Current Date: 11/04/2014 13:19:29 Physicians Attending Provider: JENAE MINOR PA-C Primary Care Provider: JENAE MINOR PA-C TAYEJOSEPHINE KEYSSSICA ELIZABETH has been given the following list [...] a day as needed for Migraine headache Routed to [facility] [address] [place] [address] naproxen (Naprosyn 500 mg oral tablet) 1 Tablet(s), Oral, two times a day with meals as needed for pain and headaches will call when refill needed Routed to [facility] [address] [place] [address] norgestimate-ethinyl estradiol (Ortho-Cyclen 0.25 mg-35 mcg oral tablet) 1 Tablet(s), Oral, once a day take 21 days of active tablets then skip placebos and start the next pack rizatriptan (Maxalt 5 mg oral tablet) 1 Tablet(s), Oral, once a day as needed for Migraine headache may repeat dose once in 2 hours New Routed to [facility] [address] [place] [address] venlafaxine (Effexor XR 75 mg oral capsule, extended release) 1 cap, Oral, once a day for anxiety/depression This is a CHANGE Routed to [facility] [address] [place] [address] Stop Taking the Following Medications: Medication list as of 11-04-14 13:19 Attention: If you have any medications at home that are not on this list, DO NOT take them until youcontact your provider for clarification. Give a copy of your medication list to your primary care provider. Update your medication list any time medications or doses are changed and carry your medication list at all times in case of emergency. Electronically Signed By: JENAE MINOR PA-C Signed On:04-NOV-2014 13:18:24 Your Allergies & Intolerances Substance Reaction Symptoms [...] appointment detail needed. Your Goals/Additional instructions: Source: [facility] POWERCHART Document Id: [id number] HT DECK OFFICER Miscellaneous - Jenae Minor P.A.-C., P.A. - 11/04/2014 1:19 PM FLIGHT DECK OFFICER Ambulatory Discharge Medication List [facility] [address] [place], [place] [id number] Visit Information Name: NANCY ROBINS [facility] Number: [id number] Visit Date: 11/04/2014 13:19:28 Attending Provider: JENAE MINOR PA-C Primary Care Provider: JENAE IMNOR PA-C NANCY ROBINS ELIZABETH has been given the following list [...] a day as needed for Migraine [place] [address] naproxen (Naprosyn 500 mg oral tablet) 1 Tablet(s), Oral, two times a day with meals as needed for pain and headaches will call when refill [place] [address] norgestimate-ethinyl estradiol (Ortho-Cyclen 0.25 mg-35 mcg oral tablet) 1 Tablet(s), Oral, once a day take 21 days of active tablets then skip placebos and start the next pack rizatriptan (Maxalt 5 mg oral tablet) 1 Tablet(s), Oral, once a day as needed for Migraine headache may repeat dose once in 2 hours New Routed to [address] [address] venlafaxine (Effexor XR 75 mg oral capsule, extended release) 1 cap, Oral, once a day for anxiety/depression This is [place] [address] Stop Taking the Following Medications: Medication list as of 11-04-14 13:19 Attention: If you have any medications at home that are not on this list, DO NOT take them until youcontact your provider for clarification. Give a copy of your medication list to your primary care provider. Update your medication list any time medications or doses are changed and carry your medication list at all times in case of emergency. Electronically Signed By: JENAE MINOR PA-C Signed On:04-NOV-2014 13:18:24 Additional Information: Source: [facility] POWERCHART Document Id: [id number] HT DECK OFFICER Miscellaneous - Clifford Ovalles L.P.N. - 11/04/2014 10:36 AM CST Adult Casino Floor Walker Intake/History Adult [employer] Walker Intake/History Entered On: 11/04/2014 10:39 FLIGHT DECK OFFICER Performed On: 11/04/2014 10:36 FLIGHT DECK OFFICER by CLIFFORD OVALLES LPN Intake Chief Complaint : Physical. LMP Date : Aug 2014 Temperature Oral : 36.6 DegC(Converted to: 97.9 DegF) Peripheral Pulse Rate : 74 /min Respiratory Rate : 18 /min Systolic Blood Pressure : 118 mmHg Diastolic Blood Pressure : 70 mmHg NIBP Mean : 86 mmHg BP Location : Right upper extremity Blood Pressure Cuff Size : Large Oxygen Therapy : Room air Height : 164 cm(Converted to: 5 ft 5 inch(es), 65 inch(es)) Actual Weight : 124.5 kg(Converted to: 274 lb 8 oz) Weight Source : Standing scale Dosing Weight Clinic : 124.5 kg Clinic BSA : 2.38 Body Mass Index : 46.29 kg/m2 CLIFFORD OVALLES LPN - 11/04/2014 10:36 FLIGHT DECK OFFICER General Info Information Given By : Patient Preferred Communication Mode : Verbal Languages : Upper Sorbian Is Patient Female and 13-50 no hysterectomy : Yes Status : Patient denies Are you ? : No CLIFFORD OVALLES LPN - 11/04/2014 10:36 FLIGHT DECK OFFICER Subjective Pain Symptoms : No CLIFFORD OVALLES LPN - 11/04/2014 10:36 FLIGHT DECK OFFICER Dependent Habits Tobacco Use/Currently Using : No Exposure to Tobacco Smoke : Other: never Smoking Status : Never smoker CLIFFORD OVALLES LPN - 11/04/2014 10:36 FLIGHT DECK OFFICER Tobacco Use Grid Other Tobacco Frequency : never CLIFFORD OVALLES LPN - 11/04/2014 10:36 FLIGHT DECK OFFICER Caffeine Use Grid Caffeine Use : Current Type : Soft drinks Frequency : Daily CLIFFORD OVALLES LPN - 11/04/2014 10:36 FLIGHT DECK OFFICER ID Screen Travel Within Last 21 Days : No CLIFFORD OVALLES LPN - 11/04/2014 10:36 FLIGHT DECK OFFICER [facility] P[facility] Document Id: [id number] FLIGHT DECK OFFICER!42 HT DECK OFFICER documented in this encounter Plan of Treatment Upcoming Encounters Date Type Specialty Care Team Description 08/17/2022 Procedure visit Neurology Marina Winter M.D., M.P.H. [address] [phone] (Wo rk) Scheduled Procedures Name Priority Associated Diagnoses Date/Time LIFT THIGH Excessive And Redundant Skin And Subcutaneous Tissue documented as of this encounter Procedures Procedure Name Priority Date/Time Associated Diagnosis Comme nts N GONOR AMP SRC Routine 11/04/2014 12:24 PM Resul ts for this FLIGHT DECK OFFICER procedure are i n the results section. N GONOR AMP DNA Routine 11/04/2014 12:24 PM Resul ts for this FLIGHT DECK OFFICER procedure are i n the results section. C TRACH AMP SRC Routine 11/04/2014 12:24 PM Resul ts for this FLIGHT DECK OFFICER procedure are i n the results section. C TRACH AMP RNA Routine 11/04/2014 12:24 PM Resul ts for this FLIGHT DECK OFFICER procedure are i n the results section. documented in this encounter Results HX-N gonor Amp DNA (11/04/2014 12:24 PM FLIGHT DECK OFFICER) athologist Signature HXN gonor Amp Negative POWERCHART DNA-[place] Specimen (Source) Anatomical Collection Method Collection Time Re ceived Time Location / / Volume Laterality 11/04/2014 12:24 PM FLIGHT DECK OFFICER Narrative POWERCHART - 11/06/2014 4:53 PM FLIGHT DECK OFFICER Test Performed by: [address] [address] Hydraulic And Plumbing Installer: Sharif Reece Jenae Minor P.A.-C., P.A. LAB HISTORICAL ORDERS Performing Organization Address City/State/ZIP Code Phon e Number POWERCHART HX-N gonor Amp Src (11/04/2014 12:24 PM FLIGHT DECK OFFICER) athologist Signature HXN gonor Amp URINE POWERCHART Src-[place] Specimen (Source) Anatomical Collection Method Collection Time Re ceived Time Location / / Volume Laterality 11/04/2014 12:24 PM FLIGHT DECK OFFICER Jenae Minor P.A.-C., P.A. LAB HISTORICAL ORDERS Performing Organization Address City/State/ZIP Code Phon e Number POWERCHART HX-C trach Amp RNA (11/04/2014 12:24 PM FLIGHT DECK OFFICER) Patholo gist Method Time Signature Chlamydia Negative POWERCHART trachomatis amplified RNA Specimen (Source) Anatomical Collection Method Collection Time Re ceived Time Location / / Volume Laterality 11/04/2014 12:24 PM FLIGHT DECK OFFICER Jenae Minor P.A.-C., P.A. LAB HISTORICAL ORDERS Performing Organization Address City/[facility]/ZIP Code Phon e Number POWERCHART HX-C trach Amp Src (11/04/2014 12:24 PM FLIGHT DECK OFFICER) P athologist Signature HXC trach Amp URINE POWERCHART Src-[place] Specimen (Source) Anatomical Collection Method Collection Time Re ceived Time Location / / Volume Laterality 11/04/2014 12:24 PM FLIGHT DECK OFFICER Jenae Minor P.A.-C., P.A. LAB HISTORICAL ORDERS Performing Organization Address City/State/ZIP Code Phon e Number POWERCHART documented in this encounter Visit Diagnoses Not on filedocumented in this encounter Additional Health Concerns Assessment Noted Time PHQ-9 Depression Total Score: 10 10/12/2014 10:[address] documented as of this encounter
--- OUTSIDE RECORDS SUMMARY | 2022-07-24 15:17 | XMS_ITS | Encounter Summary ---
:1985 Author Organization [facility] Address [address] [place] [address] Care Team Providers Name Role Phone Unavailable Primary Care Provider Unavailable Encounter Details Date Type Department Care Team Description 12/21/2014 Hospital Encounter [facility]X [facility] Bryson Escobar Jr., M.D. [address] [place], [place] [phone] (Wo rk) Social History [...] How often do you attend baptist or taoist Never 07/04/2019 services? 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 - 12/21/2014 10:35 AM CST [id number] CHIEF COMPLAINT/REASON FOR VISIT Medication check. HISTORY OF PRESENT ILLNESS Nancy is a 29 year old female, 4, para 3-0-1-3 female who presents to the clinic for medication check. She is feeling better on continuous OCPs than on Nexplanon. She has not had any spottingbeing on them continuously and she is supposed to get her period this pack. MEDICATIONS Norgestimate-ethinyl estradiol 0.25 mg-3 mg by mouth daily. Hydroxyzine 25 mg by mouth up to 4x daily as needed for migraines. Biotin 1000 mcg daily. Maxalt 5 mg daily as needed for migraines. Naproxen 500 mg twice a day. Effexor XR 75 mg daily. ALLERGIES No known allergies SYSTEMS REVIEW Please see HPI, otherwise negative. PAST MEDICAL/SURGICAL HISTORY PAST MEDICAL HISTORY: Endometriosis. Genital herpes. Gestational diabetes. History of miscarriage. Major depressive disorder. Migraine headache. Gestational diabetes. PAST SURGICAL HISTORY: without complication, 11/30/2006. section x3. Cholecystectomy, 11/29/2005. Laparoscopy, 1999. Laparotomy, peritoneal adhesion divided, 2008. Tonsillectomy and adenoidectomy, 1994. VITAL SIGNS HEIGHT: 164 cm. WEIGHT: 126 kg. BMI: 46.85 kg/m2. PULSE: 81 /min. BLOOD PRESSURE: 126/70 mmHg. PHYSICAL EXAMINATION GENERAL: Patient appears well groomed and well nourished. No acute distress. Oriented times three. IMPRESSION/REPORT/PLAN: [age] year old 4, para 3-0-1-3 female who is doing well on continuous OCPs. PLAN: 1. Contraception: Patient will continue on continuous OCPs. She was counseled on antibiotics and control use. Her control was refilled for 1 year today. 2. Follow up: The patient will return to the clinic later this month for routine annual examination. This document serves as a record of services personally performed by Bryson Hoang MD. It was created on their behalf by April Toribio, a trained medical insurance clerk. The creation of this record is basedon the scribe's personal observations and the provider's statements to them. This document has been c hecked and approved by the attending provider. Bryson Hoang M.D./ Electronically Signed By: BRYSON HOANG MD On: 12/21/2014 12:31 PM Source: [facility] [id number] Document Id: [id number] LEGAL SECRETARY documented in this encounter Miscellaneous Notes Telephone Encounter - Conversion, Historical Provider Ser - 03/02/2015 10:26 AM CDT *Phone Message/Dr. Hoang Document Contains Addenda Addendum by BRYSON HOANG MD on 02 March 2015 14:12:36 CDT From: BRYSON HOANG MD To: Obstetrics/Gynecology Nurse; Sent: 03/02/2015 14:12:36 CDT Subject: RE: *Phone Message/Dr. Hoang Probably just some breakthrough bleeding, I spoke with her. Addendum by NICKI PAIGE on 02 March 2015 13:23:30 CDT From: NICKI PAIGE ( Obstetrics/Gynecology Nurse) To: BRYSON HOANG MD; Sent: 03/02/2015 13:23:30 CDT Subject: FW: *Phone Message/Dr. Hoang Patient took home test 2 weeks ago and it was negative. She is taking her control continuously and having spotting. Please advise. From: SANDRA DIETZ ( [employer]) To: Obstetrics/Gynecology Nurse; Sent: 03/02/2015 10:26:02 CDT Subject: *Phone Message/Dr. Hoang Caller is: ( x ) Patient ( ) Mother ( ) Father ( ) Spouse ( ) Daughter ( ) Son ( ) Pharmacy ( ) Other: Physician: Dr. Hoang Patient MRN #: Reason for Call: Message: S Patient states that she is only supposed to have her period every 4 months with the birthcontrol that she is on. She has been spotting some and is wondering if she could be since she missed one pill and took 2 the next day. Wondering if she should come in for a test. B A R Please call patient back at [phone] to advise. Advice/Action: Source used: ( ) [...] back cell phone number ( ) Source: [facility] [employer] Document Id: [id number] Miscellaneous - Bryson Hoang Jr., M.D. - 12/21/2014 11:02 AM CST Ambulatory Patient Summary [facility] [address] [place] [id number] Visit Information Name: NANCY ROBINS [facility] Number: [id number] Current Date: 12/21/2014 11:02:36 Physicians Attending Provider: BRYSON HOANG MD Primary Care Provider: LEXII MINOR PA-C NANCY ROBINS has been given the following list of [...] Take Indications/Special Instructions/Comments/Notes for Patient Medication Changes/Routing biotin (biotin 1000 mcg oral tablet) 1 Tablet(s), Oral, once [...] skip placebos and start the next pack Routed to [address] [address] rizatriptan (Maxalt 5 mg oral tablet) 1 Tablet(s), Oral, once a day as needed for Migraine headache may repeat dose once in 2 hours venlafaxine (Effexor XR 75 mg oral capsule, extended release) 1 cap, Oral, once a day for anxiety/depression Stop Taking the Following Medications: Medication list as of 12-21-14 11:02 Attention: If you have any medications at home that are not on this list, DO NOT take them until youcontact your provider for clarification. Give a copy of your medication list to your primary care provider. Update your medication list any time medications or doses are changed and carry your medication list at all times in case of emergency. Electronically Signed By: BRYSON HOANG MD Signed On:21-DEC-2014 11:02:29 Your Allergies & Intolerances Substance Reaction Symptoms [...] appointment detail needed. Your Goals/Additional instructions: Source: [facility] POWERCHART Document Id: [id number] LEGAL SECRETARY Miscellaneous - Bryson Hoang Jr., M.D. - 12/21/2014 11:02 AM CST Ambulatory Discharge Medication List [address] [place] [phone] Visit Information Name: NANCY ROBINS [facility] Number: [id number] Visit Date: 12/21/2014 11:02:34 Attending Provider: BRYSON HOANG MD Primary Care Provider: LEXII MINOR PA-C NANCY ROBINS has been given the following list of medications: Your Medications It is important to take your medications as directed. Use a pill box or chart to help remind you to take your medications. Please let your doctor or nurse know if you have problems taking your medications. Medication/Strength How to Take Indications/Special Instructions/Comments/Notes for Patient Medication Changes/Routing biotin (biotin 1000 mcg oral tablet) 1 Tablet(s), Oral, once [...] skip placebos and start the next pack Routed to [address] [place] [address] rizatriptan (Maxalt 5 mg oral tablet) 1 Tablet(s), Oral, once a day as needed for Migraine headache may repeat dose once in 2 hours venlafaxine (Effexor XR 75 mg oral capsule, extended release) 1 cap, Oral, once a day for anxiety/depression Stop Taking the Following Medications: Medication list as of 12-21-14 11:02 Attention: If you have any medications at home that are not on this list, DO NOT take them until youcontact your provider for clarification. Give a copy of your medication list to your primary care provider. Update your medication list any time medications or doses are changed and carry your medication list at all times in case of emergency. Electronically Signed By: BRYSON HOANG MD Signed On:21-DEC-2014 11:02:29 Additional Information: Source: [facility] POWERCHART Document Id: [id number] LEGAL SECRETARY Miscellaneous - Nicki Vaz R.N. - 12/21/2014 10:38 AM CST Adult Director Of Radiology Intake/History Adult Director Of Radiology Intake/History Entered On: 12/21/2014 10:40 PARALEGAL SECRETARY Performed On: 12/21/2014 10:38 PARALEGAL SECRETARY by NICKI PAIGE Intake Chief Complaint : med recheck LMP Date : 2012 Peripheral Pulse Rate : 81 /min Systolic Blood Pressure : 126 mmHg Diastolic Blood Pressure : 70 mmHg NIBP Mean : 89 mmHg Height : 164 cm(Converted to: 5 ft 5 inch(es), 65 inch(es)) Actual Weight : 126.0 kg(Converted to: 277 lb 13 oz) Dosing Weight Clinic : 126 kg Clinic BSA : 2.4 Body Mass Index : 46.85 kg/m2 NICKI PAIGE 12/21/2014 10:38 PARALEGAL SECRETARY General Info Languages : Czech Is Patient Female and 13-50 no hysterectomy : Yes Status : Patient denies Are you ? : No NICKI PAIGE 12/21/2014 10:38 PARALEGAL SECRETARY Subjective Pain Symptoms : No NICKI PAIGE 12/21/2014 10:38 PARALEGAL SECRETARY Dependent Habits Tobacco Use/Currently Using : No Exposure to Tobacco Smoke : Other: never Smoking Status : Never smoker NICKI PAIGE 12/21/2014 10:38 PARALEGAL SECRETARY Tobacco Use Grid Other Tobacco Frequency : never NICKI PAIGE 12/21/2014 10:38 PARALEGAL SECRETARY Caffeine Use Grid Caffeine Use : Current Type : Soft drinks Frequency : Daily NICKI PAIGE 12/21/2014 10:38 PARALEGAL SECRETARY ID Screen Travel Within Last 21 Days : No NICKI PAIGE 12/21/2014 10:38 PARALEGAL SECRETARY Source: [facility] POWERCHART Document Id: [id number] PARALEGAL SECRETARY!34 LEGAL SECRETARY documented in this encounter Plan of Treatment Upcoming Encounters Date Type Specialty Care Team Description 08/17/2022 Procedure visit Neurology Marian Winter M.D., M.P.H. [address] [phone] (Wo rk) Scheduled Procedures Name Priority Associated Diagnoses Date/Time LIFT THIGH Excessive And Redundant Skin And Subcutaneous Tissue documented as of this encounter Visit Diagnoses Not on filedocumented in this encounter Additional Health Concerns Assessment Noted Time PHQ-9 Depression Total Score: 10 10/12/2014 10:[address] documented as of this encounter
--- OUTSIDE RECORDS SUMMARY | 2022-07-24 15:17 | XMS_ITS | Encounter Summary ---
:1985 Author Organization [facility] Address [address] [place] [address] Care Team Providers Name Role Phone Unavailable Primary Care Provider Unavailable Encounter Details Date Type Department Care Team Description 11/27/2014 Hospital Encounter HX [facility] Shiela Cadet M.B., Ch.B. [address] [place], [place] [phone] (Wo rk) Social History [...] How often do you attend muslim or restorationism Never 07/04/2019 services? 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 [address] [place] [phone] (Wo rk) Scheduled Procedures Name Priority Associated Diagnoses Date/Time LIFT THIGH Excessive And Redundant Skin And Subcutaneous Tissue documented as of this encounter Procedures Procedure Name Priority Date/Time Associated Comments Diagnosis GLUCOSE, P Routine 11/27/2014 10:41 Results for this AM SCRUM PRODUCT OWNER procedure are i n the results section. AUTOMATED DIFFERENTIAL, Routine 11/27/2014 10:41 Results for this B AM [employer]CR[employer] PRODUCT OWNER procedure are i n the results section. PROTHROMBIN TIME (PT), P Routine 11/27/2014 10:41 Results for this AM S[employer] PRODUCT OWNER procedure are i n the results section. CBC WITH DIFFERENTIAL, B Routine 11/27/2014 10:41 Results for this AM SCR[employer] PRODUCT OWNER procedure are i n the results section. ALANINE AMINOTRANSFERASE Routine 11/27/2014 10:41 Results for this (ALT), S/P AM [employer] PR[employer] OWNER procedure are i n the results section. ASPARTATE Routine 11/27/2014 10:41 Results for this AMINOTRANSFERASE (AST), AM SCR[employer] PRODUCT OWNER proc edure are in S/P the results section. CREATININE WITH EGFR, Routine 11/27/2014 10:41 Re sults for this S/P AM SCRUM PRODUCT OWNER procedure are i n the results section. ALBUMIN, S/P Routine 11/27/2014 10:41 Results for this AM S[employer] PRODUCT OWNER procedure are i n the results section. documented in this encounter Results Automated Differential (11/27/2014 10:41 AM SCRUM PRODUCT OWNER) P athologist Signature Absolute 5.45 1.70 - POWERCHART Neutrophils 7.00 109L Lymphocytes 2.18 0.90 - POWERCHART 2.90 X109L Monocytes 0.55 0.30 - POWERCHART 0.90 X109L Eosinophils 0.20 0.05 - POWERCHART 0.50 X109L Absolute 0.02 0.00 - POWERCHART Basophil 0.30 X109L Specimen Anatomical Collection Method Collection Time Receive d Time (Source) Location / / Volume Laterality Blood 11/27/2014 10:41 11/27/2014 AM SCRUM PRODUCT OWNER 10:41 AM SCRUM PRODUCT OWNER Shiela Marx, Ch.B. LAB BLOOD ADD-ON Performing Organization Address City/State/ZIP Code Phon e Number POWERCHART PT (Prothrombin Time) with INR (11/27/2014 10:41 AM SCRUM PRODUCT OWNER) P athologist Signature INR 0.9 INR POWERCHART Specimen (Source) Anatomical Collection Method Collection Time Re ceived Time Location / / Volume Laterality Blood 11/27/2014 10:41 AM SCRUM PRODUCT OWNER Shiela Marx Ch.B. LAB BLOOD ADD-ON Performing Organization Address City/State/ZIP Code Phon e Number POWERCHART CBC with Differential (11/27/2014 10:41 AM SCRUM PRODUCT OWNER) P athologist Signature Leukocytes 8.4 3.4 - 10.5 POWERCHART X109L Erythrocytes 4.67 3.90 - POWERCHART 5.03 U1800R Hemoglobin 13.7 12.0 - POWERCHART 15.5 GDL Hematocrit 41.4 34.9 - POWERCHART 44.5 MCV 88.7 82.0 - POWERCHART 98.0 FL Platelet Count 253 150 - 450 POWERCHART X109L HX RDW 12.9 11.9 - POWERCHART 15.5 HXDifferential? Auto POWERCHART Specimen (Source) Anatomical Collection Method Collection Time Re ceived Time Location / / Volume Laterality Blood 11/27/2014 10:41 AM SCRUM PRODUCT OWNER Shiela Marx Ch.B. LAB BLOOD ADD-ON Performing Organization Address City/State/ZIP Code Phon e Number POWERCHART Glucose (11/27/2014 10:41 AM SCRUM PRODUCT OWNER) P athologist Signature Glucose 83 POWERCHART Specimen (Source) Anatomical Collection Method Collection Time Re ceived Time Location / / Volume Laterality Blood 11/27/2014 10:41 AM SCRUM PRODUCT OWNER Shiela Maxr Ch.B. LAB BLOOD ADD-ON Performing Organization Address City/State/ZIP Code Phon e Number POWERCHART (ABNORMAL) Creatinine with eGFR (11/27/2014 10:41 AM SCRUM PRODUCT OWNER) Analysis Performed At Patho logist Time Signature Creatinine <0.5 (L) 0.7 - 1.2 POWERCHART MGDL HXeGFR (MDRD) >60 MLMIN POWERCHART eGFR >60 >=60 POWERCHART Black/ [id number] [place] Specimen (Source) Anatomical Collection Method Collection Time Re ceived Time Location / / Volume Laterality Blood 11/27/2014 10:41 AM SCRUM PRODUCT OWNER Shiela Marx Ch.B. LAB BLOOD ADD-ON Performing Organization Address City/State/ZIP Code Phon e Number POWERCHART AST (Aspartate Aminotransferase) (11/27/2014 10:41 AM SCRUM PRODUCT OWNER) Patholo gist Method Time Signature Aspartate <11 8 - 43 POWERCHART Aminotransferase UNITL (AST), S Specimen (Source) Anatomical Collection Method Collection Time Re ceived Time Location / / Volume Laterality Blood 11/27/2014 10:41 AM SCRUM PRODUCT OWNER Shiela Marx Ch.B. LAB BLOOD ADD-ON Performing Organization Address [facility] Code Phon e Number POWERCHART ALT (Alanine Aminotransferase) (11/27/2014 10:41 AM SCRUM PRODUCT OWNER) P athologist Signature Alanine 17 9 - 52 POWERCHART Amniotransferas UNITL e, LD Specimen (Source) Anatomical Collection Method Collection Time Re ceived Time Location / / Volume Laterality Blood 11/27/2014 10:41 AM SCRUM PRODUCT OWNER Shiela Marx Ch.B. LAB BLOOD ADD-ON Performing Organization Address City/[facility] Code Phon e Number POWERCHART (ABNORMAL) Albumin (11/27/2014 10:41 AM SCRUM PRODUCT OWNER) P athologist Signature Albumin, S 3.4 (L) 3.5 - 5.0 POWERCHART GMDL Specimen (Source) Anatomical Collection Method Collection Time Re ceived Time Location / / Volume Laterality Blood 11/27/2014 10:41 AM SCRUM PRODUCT OWNER Shiela Marx Ch.B. LAB BLOOD ADD-ON Performing Organization Address City/[facility] Code Phon e Number POWERCHART documented in this encounter Visit Diagnoses Not on filedocumented in this encounter Additional Health Concerns Assessment Noted Time PHQ-9 Depression Total Score: 10 10/12/2014 10:[address] documented as of this encounter
--- OUTSIDE RECORDS SUMMARY | 2022-07-24 15:17 | XMS_ITS | Encounter Summary ---
:1985 Author Organization [facility] Address [address] [place] [address] Care Team Providers Name Role Phone Unavailable Primary Care Provider Unavailable Encounter Details Date Type Department Care Team Description 02/15/2015 Hospital Encounter HX [facility] Cedrick Lobo M.D. [address] [place], [place] [address] (Wo rk) Social History Tobacco Use Types [...] How often do you attend scientology or mormonism Never 07/04/2019 services? 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 - 02/15/2015 3:39 PM CDT [id number] A 29-year-old female with 2-day history of cough and chest discomfort, which provokes cough upon deep inspiration. Her was ill with a bronchitis a month ago. She has a young child with mild respiratory illness currently. 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 She is a nonsmoker. She does not have a history of recurrent upper respiratory infection. Past medical, past surgical, family medical history, as well as current medications and drug allergies are as so noted, reviewed with patient and updated in the electronic medical record. SYSTEMS REVIEW GENERAL: As aforementioned in the history of present illness. The patient otherwise at a baseline state of good general health. Specific review of systems otherwise covering eyes, cardiovascular, gastrointestinal, neurologic, urologic, musculoskeletal, and psychiatric review of systems are negative. PHYSICAL EXAMINATION VITAL SIGNS: Patient afebrile at 36.4 degrees centigrade. Heart rate 108 beats per minute and regular. Blood pressure 120/70 for this patient standing at 164 cm, weighing 125.2 kg. Of note, the patientis a nonsmoker. HEENT: Head: Normocephalic and atraumatic. Pupils are equal and reactive to light and accommodation.Extraocular motions are intact. Posterior oropharynx is narrow but unobstructed. NECK: Supple. CHEST: Breath sounds diminished throughout, though present. No wheezes, rales or egophony present. HEART: Regular, though tachycardic at about a 96 to 108 beats per minute. No murmur or rub. ABDOMEN: Soft, nontender, nondistended. EXTREMITIES: No clubbing, cyanosis, or edema. Capillary refill adequate between 1-1/2 and 2 seconds bilateral upper and lower extremities. IMPRESSION/REPORT/PLAN A 29-year-old female with the following active medical findings: 1. Acute bronchitis. After discussion of risks and benefits, patient accepts prescription for azithromycin per EMR order. She may otherwise symptomatically treat and is directed to vigorously hydrate to the point of feeling compelled to void urine every 4 to 5 hours. Patient to complete her entire course of medication as prescribed. Jules Lobo M.D./pepe Electronically Signed By: JULES LOBO MD On: 02/16/2015 08:05 AM Source: [facility] MHSDOLBEYNONRADSYS Document Id: [id number] documented in this encounter Nursing Notes Jules oLbo M.D. - 02/15/2015 3:53 PM CDT Ambulatory Patient Education The following Patient Education Materials have been given to the patient: Patient Education Materials: Pulmonology Acute Bronchitis Pulmonology Acute Bronchitis Your health care provider has told you that you have acute bronchitis. Bronchitis is infection or inflammation of the bronchial tubes (airways in the lungs). Normally, air moves easily in and out of the airways. Bronchitis narrows the airways, making it harder for air to flow in and out of the lungs. This causes symptoms such as shortness of breath, coughing, and wheezing. Bronchitis can be acute or chronic. Acute means the condition comes on quickly and goes away in a short time. Chronic means a condition lasts a long time and often comes back. Read on to learn more about acute bronchitis. What Causes Acute Bronchitis? Acute bronchitis almost always starts as a viral respiratory infection, such as a cold or the flu. Certain factors make it more likely for a cold or flu to turn into bronchitis. These include being very young or very old or having a heart or lung problem. Cigarette smoking also makes bronchitis more likely. When bronchitis develops, the airways become swollen. The airways may also become infected with bacteria. This is known as a secondary infection. Diagnosing Acute Bronchitis Your health care provider will examine you and ask about your symptoms and health history. You may also have a sputum culture to test the fluid in your lungs. Chest X-rays may be done to look for infection in the lungs. Treating Acute Bronchitis Bronchitis usually clears up as the cold or flu goes away. You can help feel better faster by doing the following: ?? Take medication as directed. You may be told to take ibuprofen or other ream-vgc-wxdenki medications. These help relieve inflammation in your bronchial tubes. Your doctor may prescribe an inhaler tohelp open up the bronchial tubes. If you have a bacterial infection, you may be prescribed antibiotics. If so, take all of this medication as directed until it is gone, even if you feel better. ?? Drink plenty of fluids, such as water, juice, or warm soup. Fluids loosen mucus so that you can cough it up. This helps you breathe more easily. Fluids also prevent dehydration. ?? Make sure you get plenty of rest. ?? Do not smoke. Do not allow anyone else to smoke in your home. Recovery and Follow-Up Follow up with your doctor as you are told. You will likely feel better in a week or two. But a dry cough can linger beyond that time. Let your doctor know if you still have symptoms (other than a dry cough) after 2 weeks. If youre prone to getting bronchial infections, let your doctor know. And take steps to protect yourself from future infections. These steps include stopping smoking and avoiding tobacco smoke, washing your hands often, and getting a yearly flu shot. When to Call the Doctor Call the doctor if you have any of the following: Fever of 100.4??F (38.0??C) higher Symptoms that get worse, or new symptoms Trouble breathing Symptoms that dont start to improve within a week, or within 3 days of taking antibiotics ?? [id number] [place] [address]. All rights reserved. This information is not intended as a substitute for professional medical care. Always follow your healthcare professional's instructions. This document has images extracted. Please consider using [employer] for all your patient education needs. Source: [facility] POWERCHART Document Id: [id number] Jules Lobo M.D. - 02/15/2015 3:53 PM CDT Ambulatory Patient Education The following Patient Education Materials have been given to the patient: Patient Education Materials: Pulmonology Acute Bronchitis Pulmonology Acute Bronchitis Your health care provider has told you that you have acute bronchitis. Bronchitis is infection or inflammation of the bronchial tubes (airways in the lungs). Normally, air moves easily in and out of the airways. Bronchitis narrows the airways, making it harder for air to flow in and out of the lungs. This causes symptoms such as shortness of breath, coughing, and wheezing. Bronchitis can be acute or chronic. Acute means the condition comes on quickly and goes away in a short time. Chronic means a condition lasts a long time and often comes back. Read on to learn more about acute bronchitis. What Causes Acute Bronchitis? Acute bronchitis almost always starts as a viral respiratory infection, such as a cold or the flu. Certain factors make it more likely for a cold or flu to turn into bronchitis. These include being very young or very old or having a heart or lung problem. Cigarette smoking also makes bronchitis more likely. When bronchitis develops, the airways become swollen. The airways may also become infected with bacteria. This is known as a secondary infection. Diagnosing Acute Bronchitis Your health care provider will examine you and ask about your symptoms and health history. You may also have a sputum culture to test the fluid in your lungs. Chest X-rays may be done to look for infection in the lungs. Treating Acute Bronchitis Bronchitis usually clears up as the cold or flu goes away. You can help feel better faster by doing the following: ?? Take medication as directed. You may be told to take ibuprofen or other orxr-mej-zuqtnxq medications. These help relieve inflammation in your bronchial tubes. Your doctor may prescribe an inhaler tohelp open up the bronchial tubes. If you have a bacterial infection, you may be prescribed antibiotics. If so, take all of this medication as directed until it is gone, even if you feel better. ?? Drink plenty of fluids, such as water, juice, or warm soup. Fluids loosen mucus so that you can cough it up. This helps you breathe more easily. Fluids also prevent dehydration. ?? Make sure you get plenty of rest. ?? Do not smoke. Do not allow anyone else to smoke in your home. Recovery and Follow-Up Follow up with your doctor as you are told. You will likely feel better in a week or two. But a dry cough can linger beyond that time. Let your doctor know if you still have symptoms (other than a dry cough) after 2 weeks. If youre prone to getting bronchial infections, let your doctor know. And take steps to protect yourself from future infections. These steps include stopping smoking and avoiding tobacco smoke, washing your hands often, and getting a yearly flu shot. When to Call the Doctor Call the doctor if you have any of the following: Fever of 100.4??F (38.0??C) higher Symptoms that get worse, or new symptoms Trouble breathing Symptoms that dont start to improve within a week, or within 3 days of taking antibiotics ?? [id number] [facility], [address] [place] [address]. All rights reserved. This information is not intended as a substitute for professional medical care. Always follow your healthcare professional's instructions. This document has images extracted. Please consider using [employer] for all your patient education needs. Source: [employer] Document Id: [id number] documented in this encounter Miscellaneous Notes Miscellaneous - April Mishra L.P.N. - 02/15/2015 4:18 PM CDT PHQ-9 PHQ-9 Entered On: 02/15/2015 16:18 CDT Performed On: 02/15/2015 16:18 CDT by APRIL MISHRA PHQ-9 Little interest or pleasure in doing [...] Several days Trouble concentrating on things : Not at all Moving or speaking slowly; restless or fidgety : Not at all Thoughts that you would be better off /hurting self : Not at all PHQ-9 Calculated Score : 6 Problems make work, home, or dealing with others : Somewhat difficult APRIL MISHRA - 02/15/2015 16:18 CDT Source: [employer] Document Id: [id number] CDT!13 Miscellaneous - Jules Lobo M.D. - 02/15/2015 3:53 PM CDT Ambulatory Patient Summary [address] [phone] Visit Information Name: NANCY PHILLIPS [facility] Number: [id number] Current Date: 02/15/2015 15:53:40 Physicians Attending Provider: JULES LOBO MD Primary Care Provider: LEXII MINOR PA-C NANCY PHILLIPS has been given the following list of follow-up instructions, medication list, and patient education materials: Follow-up Instructions With: Address: When: Follow up with primary care provider , only if needed Comments: Your Medications Here is a list of your medications. It is important to take your medications as directed. Use a pillbox or chart to help remind you to take your medications. Please let your doctor or nurse know if you have problems taking your medications. Medication/Strength How to Take Indications/Special Instructions/Comments/Notes for Patient Medication Changes/Routing azithromycin (azithromycin 250 mg oral tablet) 2 tablets on day 1, then 1 tablet on days 2-5, Oral, as directed x 5 day(s) New Routed to [address] [address] hydrOXYzine (Vistaril 25 mg oral capsule) 1 [...] for anxiety/depression Stop Taking the Following Medications: biotin (biotin 1000 mcg oral tablet) Medication list as of 02-15-15 15:53 Attention: If you have any medications at home that are not on this list, DO NOT take them until youcontact your provider for clarification. Give a copy of your medication list to your primary care provider. Update your medication list any time medications or doses are changed and carry your medication list at all times in case of emergency. Electronically Signed By: JULES LOBO MD Signed On:15-FEB-2015 15:53:19 Your Allergies & Intolerances Substance Reaction Symptoms [...] local Clinic if further appointment detail needed. Acute Bronchitis Your health care provider has told you that you have acute bronchitis. Bronchitis is infection or inflammation of the bronchial tubes (airways in the lungs). Normally, air moves easily in and out of the airways. Bronchitis narrows the airways, making it harder for air to flow in and out of the lungs. This causes symptoms such as shortness of breath, coughing, and wheezing. Bronchitis can be acute or chronic. Acute means the condition comes on quickly and goes away in a short time. Chronic means a condition lasts a long time and often comes back. Read on to learn more about acute bronchitis. What Causes Acute Bronchitis? Acute bronchitis almost always starts as a viral respiratory infection, such as a cold or the flu. Certain factors make it more likely for a cold or flu to turn into bronchitis. These include being very young or very old or having a heart or lung problem. Cigarette smoking also makes bronchitis more likely. When bronchitis develops, the airways become swollen. The airways may also become infected with bacteria. This is known as a secondary infection. Diagnosing Acute Bronchitis Your health care provider will examine you and ask about your symptoms and health history. You may also have a sputum culture to test the fluid in your lungs. Chest X-rays may be done to look for infection in the lungs. Treating Acute Bronchitis Bronchitis usually clears up as the cold or flu goes away. You can help feel better faster by doing the following: ?? Take medication as directed. You may be told to take ibuprofen or other grdt-mip-uyohvbz medications. These help relieve inflammation in your bronchial tubes. Your doctor may prescribe an inhaler tohelp open up the bronchial tubes. If you have a bacterial infection, you may be prescribed antibiotics. If so, take all of this medication as directed until it is gone, even if you feel better. ?? Drink plenty of fluids, such as water, juice, or warm soup. Fluids loosen mucus so that you can cough it up. This helps you breathe more easily. Fluids also prevent dehydration. ?? Make sure you get plenty of rest. ?? Do not smoke. Do not allow anyone else to smoke in your home. Recovery and Follow-Up Follow up with your doctor as you are told. You will likely feel better in a week or two. But a dry cough can linger beyond that time. Let your doctor know if you still have symptoms (other than a dry cough) after 2 weeks. If youre prone to getting bronchial infections, let your doctor know. And take steps to protect yourself from future infections. These steps include stopping smoking and avoiding tobacco smoke, washing your hands often, and getting a yearly flu shot. When to Call the Doctor Call the doctor if you have any of the following: Fever of 100.4?F (38.0?C) higher Symptoms that get worse, or new symptoms Trouble breathing Symptoms that dont start to improve within a week, or within 3 days of taking antibiotics ?? [id number] [facility], [address] [place] [address]. All rights reserved. This information is not intended as a substitute for professional medical care. Always follow your healthcare professional's instructions. Your Goals/Additional instructions: This document has images extracted. Please consider using [employer] for all your patient education needs. Source: [facility] POWERCHART Document Id: [id number] Miscellaneous - Jules Lobo M.D. - 02/15/2015 3:53 PM CDT Ambulatory Discharge Medication List [address] [place], [place] [phone] Visit Information Name: NANCY PHILLIPS [facility] Number: [id number] Visit Date: 02/15/2015 15:53:38 Attending Provider: JULES LOBO MD Primary Care Provider: LEXII MINOR PA-C [...] Indications/Special Instructions/Comments/Notes for Patient Medication Changes/Routing azithromycin (azithromycin 250 mg oral tablet) 2 tablets on day 1, then 1 tablet on days 2-5, Oral, as directed x 5 day(s) New Routed to [address] [address] hydrOXYzine (Vistaril 25 mg oral capsule) 1 [...] for anxiety/depression Stop Taking the Following Medications: biotin (biotin 1000 mcg oral tablet) Medication list as of 02-15-15 15:53 Attention: If you have any medications at home that are not on this list, DO NOT take them until youcontact your provider for clarification. Give a copy of your medication list to your primary care provider. Update your medication list any time medications or doses are changed and carry your medication list at all times in case of emergency. Electronically Signed By: JULES LOBO MD Signed On:15-FEB-2015 15:53:19 Additional Information: Source: [facility] POWERCHART Document Id: [id number] Miscellaneous - April Misrha L.PRodrigoN. - 02/15/2015 3:42 PM CDT Adult Cripple Cutter Intake/History Adult Cripple Cutter Intake/History Entered On: 02/15/2015 15:45 CDT Performed On: 02/15/2015 15:42 CDT by APRIL MISHRA Intake Chief Complaint : cough, chest hurts and feels tight when she takes a deep breath. feels chilled butis sweating. Onset of Symptoms : yesterday Temperature Core : 36.4 DegC(Converted to: 97.5 DegF) (LOW) Peripheral Pulse Rate : 108 /min (HI) Heart Rhythm : Regular Systolic Blood Pressure : 120 mmHg Diastolic Blood Pressure : 70 mmHg NIBP Mean : 87 mmHg BP Location : Left upper extremity Blood Pressure Cuff Size : Large Height : 164 cm(Converted to: 5 ft 5 inch(es), 65 inch(es)) Actual Weight : 125.2 kg(Converted to: 276 lb 0 oz) Weight Source : Standing scale Dosing Weight Clinic : 125.2 kg Clinic BSA : 2.39 Body Mass Index : 46.55 kg/m2 APRIL MISHRA - 02/15/2015 15:42 CDT General Info Information Given By : Patient Preferred Communication Mode : Verbal Languages : French Is Patient Female and 13-50 no hysterectomy : Yes Status : Patient denies Are you ? : No APRIL MISHRA - 02/15/2015 15:42 CDT Subjective Pain Symptoms : Yes APRIL MISHRA - 02/15/2015 15:42 CDT Pain Scale Pain Scale Verbal 0-10 : Open APRIL MISHRA - 02/15/2015 15:42 CDT Pain Pain Assessment Grid Pain 1 Location : Chest APRIL MISHRA - 02/15/2015 15:42 CDT Dependent Habits Tobacco Use/Currently Using : No Exposure to Tobacco Smoke : Other: never Smoking Status : Never smoker APRIL MISHRA - 02/15/2015 15:42 CDT Tobacco Use Grid Other Tobacco Frequency : never APRIL MISHRA - 02/15/2015 15:42 CDT Caffeine Use Grid Caffeine Use : Current Type : Soft drinks Frequency : Daily APRIL MISHRA - 02/15/2015 15:42 CDT ID Screen Travel Within Last 21 Days : No Contact with someone with Ebola : No APRIL MISHRA - 02/15/2015 15:42 CDT Source: [employer] Document Id: [id number] documented in this encounter Plan of Treatment Upcoming Encounters Date Type Specialty Care Team Description 08/17/2022 Procedure visit Neurology Marina Winter M.D., M.P.H. [address] [phone] (Wo rk) Scheduled Procedures Name Priority Associated Diagnoses Date/Time LIFT THIGH Excessive And Redundant Skin And Subcutaneous Tissue documented as of this encounter Visit Diagnoses Not on filedocumented in this encounter Additional Health Concerns Assessment Noted Time PHQ-9 Depression Total Score: 6 02/15/2015 4:18 PM CDT documented as of this encounter
--- OUTSIDE RECORDS SUMMARY | 2022-07-24 15:17 | XMS_ITS | Encounter Summary ---
:1985 Author Organization [facility] Address [address] [place] [address] Care Team Providers Name Role Phone Unavailable Primary Care Provider Unavailable Encounter Details Date Type Department Care Team Description 04/20/2014 Hospital Encounter HX [facility] Grandalfred, Lizandro Olguin, P.A.-C., P.A. [address] [place], [place] [address] (Wo rk) Social History [...] How often do you attend yazidi or restoration Never 07/04/2019 services? 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 - 04/20/2014 3:09 PM CDT [id number] CHIEF COMPLAINT/REASON FOR VISIT Back pain, complete paperwork. HISTORY OF PRESENT ILLNESS Maria Alejandra is a 29-year-old female. She has 4 children ages almost 9, 6 years, 3 years and 1-year-old. Her 3-year-old son is undergoing further evaluation for developmental and behavior issues. This is causing increased stress and anxiety for Maria Alejandra. 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 Even grandmother state that she is not able to watch her son and that he is too much for her. She is requesting a note stating this and it has made it difficult for her to obtain work training courses because of this. She would like to work although due to day care issues she is needing lee able to provide care for her son. She does have a history of anxiety and depression symptoms herself which have been controlled with Effexor 75 mg daily. Please see work note filed in EMR. She has had some low back pain over the past 3 days. She thinks she may have pulled a muscle in her low back. She has pain in the sacroiliac region right greater than left. She does have some Naprosyn but is not taking this regularly. She denies any numbness or tingling. She does have muscle spasm andtightness. No change in bowel or bladder pattern. No radicular symptoms. MEDICATIONS Reviewed [facility] EMR dated 04/20/2014 and no changes. ALLERGIES No known drug allergies. VITAL SIGNS Reviewed [facility] EMR dated 04/20/2014 and no changes. PHYSICAL EXAMINATION GENERAL: Pleasant, well-appearing female in no acute distress. SPINE: No vertebral tenderness. There is slight exaggeration of the lumbar lordosis. Range of motionis otherwise within limits. She can forward flex to within a few inches of touching the floor. Normal lateral rotation and bending. MUSCULOSKELETAL: There is muscle spasm and tightness in the lumbosacral paravertebral muscles and ligaments bilaterally as well as the SI region. Range of motion of the hips and lower extremities is normal. She is able to stand on her heels and her toes. She has normal flexion internal and external rotation of the hips bilaterally. NEUROLOGIC: Cranial nerves II through XII grossly intact. Plus 2 normoactive biceps and patellar DTRs bilaterally. Five over five lower extremity strength testing. MENTAL: Mood and affect appropriate. IMPRESSION/REPORT/PLAN 1. Back pain with muscle spasm. PLAN: Medrol dose pack with once daily dosing as instructed. She will hold off on filling this but will have available if the symptoms have not improved within the next week she can go ahead and fill the prescription and take as directed once daily with food. Naprosyn 500 mg twice daily with food for pain and inflammation. She was also given Flexeril 10 mg 3 times daily as needed for muscle spasm. Cautioned on the sedating effects of this and to use mainly at night to allow rest. To otherwise continue with conservative measures and cares such as ice, stretching, etc. If symptoms have not improved she will take the Medrol as directed and consider referral for physical therapy. Will follow up as needed. 2. Anxiety disorder with increased social stressors. PLAN: As noted above. Her son is undergoing some specialty evaluation at [facility] for behavior and developmental delays. At this time I think it is unrealistic for Maria Alejandra to be able to fully participate in job training courses as she will need to be available for these appointments thatare yet to be scheduled and she currently is unable to find a daycare provider that will care for her son. I did give her a note to this effect. Please see copy filed in EMR. I do believe that this will change in the future and will re- evaluate at that time. Otherwise to follow up as needed. Lexii Minor P.A.-C./pepe Electronically Signed By: LEXII MINOR PA-C On: 04/24/2014 01:07 PM Source: [facility] MHSDOLBEYNONRADSYS Document Id: [id number] documented in this encounter Miscellaneous Notes Miscellaneous - Lexii Minor P.A.-Nadya P.ARodrigo - 04/20/2014 4:00 PM CDT Work Note From: LEXII MINOR PA-C Sent: 04/20/2014 16:00:26 CDT Subject: Work Note To Whom It May Concern : Maria Alejandra was evaluated today in clinic. She has a known history of anxiety/depression and is on medications. She has been compliant with medical cares. She also has 4 children ages almost 9, 6, 3 and 1 year. Her 3 year old son is undergoing subspecialty medical care and evaluation for developmental/behavioral issues. She will need to be available to take her son for these appts. as scheduled. She is currently unemployed and staying home caring for her 4 children. At this time I feel having to attend employment search may not be feasible given her son's need for medical appts which will be scheduled and also in light of the fact that she does not have other options for his daycare. This may change in the future. Nadya Minor PA-C Source: [facility] POWERCHART Document Id: [id number] Electronically signed by Maria R [facility] Director Construction Services [id number] at 04/03/2017 2:32 AM CDT Miscellaneous - Marcela Pereyra L.PCiera - 04/20/2014 3:15 PM CDT Adult Verifying Specialist Intake/History Adult Verifying Specialist Intake/History Entered On: 04/20/2014 15:21 CDT Performed On: 04/20/2014 15:15 CDT by MARCELA PEREYRA Intake Chief Complaint : pt. needs paperwork completed (employement services FB), pt. would like to have her lower back looked at she thinks she pulled a muscle at work Temperature Oral : 36.7 DegC(Converted to: 98.1 DegF) Peripheral Pulse Rate : 100 /min Respiratory Rate : 16 /min Heart Rhythm : Regular Systolic Blood Pressure : 116 mmHg Diastolic Blood Pressure : 78 mmHg NIBP Mean : 91 mmHg BP Location : Right upper extremity Blood Pressure Cuff Size : Large Oxygen Therapy : Room air Actual Weight : 110.9 kg(Converted to: 244 lb 8 oz) Weight Source : Standing scale Dosing Weight Clinic : 110.9 kg MARCELA PEREYRA - 04/20/2014 15:15 CDT General Info Information Given By : Patient Preferred Communication Mode : Verbal Languages : Uzbek MARCELA PEREYRA - 04/20/2014 15:15 CDT Subjective Pain Symptoms : Yes MARCELA PEREYRA - 04/20/2014 15:15 CDT Pain Pain Assessment Grid Pain 1 Location : Lower back Laterality : Other: center spine Intensity : 7 Time Pattern : Intermittent (Comment: rates pain a 7 out of 10 when she stands, walks or moves [MARCELA PEREYRA - 04/20/2014 15:15 CDT] ) Quality : Sharp Pain Radiation : No Aggravating Factors : Movement Alleviating Factors : Immobilization MARCELA PEREYRA - 04/20/2014 15:15 CDT Dependent Habits Tobacco Use/Currently Using : No Exposure to Tobacco Smoke : Other: never Smoking Status : Never smoker MARCELA PEREYRA - 04/20/2014 15:15 CDT Tobacco Use Grid Other Tobacco Frequency : never MARCELA PEREYRA - 04/20/2014 15:15 CDT Caffeine Use Grid Caffeine Use : Current Type : Soft drinks Frequency : Daily MARCELA PEREYRA - 04/20/2014 15:15 CDT Source: [employer] Document Id: [id number] CDT!45 documented in this encounter Plan of Treatment Upcoming Encounters Date Type Specialty Care Team Description 08/17/2022 Procedure visit Neurology Marina Winter M.D., M.P.H. [address] [place] [address] [phone] (Wo rk) Scheduled Procedures Name Priority Associated Diagnoses Date/Time LIFT THIGH Excessive And Redundant Skin And Subcutaneous Tissue documented as of this encounter Visit Diagnoses Not on filedocumented in this encounter Additional Health Concerns Assessment Noted Time PHQ-9 Depression Total Score: 5 02/18/2014 10:07 AM CD T documented as of this encounter
--- OUTSIDE RECORDS SUMMARY | 2022-07-24 15:17 | XMS_ITS | Encounter Summary ---
:1985 Author Organization [facility] Address [address] [place] [address] Care Team Providers Name Role Phone Unavailable Primary Care Provider Unavailable Encounter Details Date Type Department Care Team Description 07/09/2013 Hospital Encounter HX [facility] Ирина Baird, ArnoldoA. [address] [place] [address] [place] [phone] (Wo rk) Social History Tobacco Use Types [...] How often do you attend yarsanism or uatsdin Never 07/04/2019 services? 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 HISTORY OF PRESENT ILLNESS Nancy Robins is a 28-year-old female who presents to the clinic today for a medication recheck.I met this patient on 06/11/2013. At that time, she was requesting phentermine as well as a medication for her depression. She had previously been on 2 or 3 different medications from the SSRI group, and she reports intolerance to these medications. We did elect to start her on Effexor 37.5 mg 1 tablet by mouth daily for 1 week, and then increase to 2 tablets by mouth daily thereafter. She states that her depression seems to have this improved with initiation of this medication. She still states that overall, I feel great. She states that she would still benefit from finding a job been having some time away from her 4 children. She had previously been attending a options support group in [place] and had found that to be very helpful, however, she states that recently with school starting back up she has not had any time to attend those group meetings. She feels that things are going well. At last visit, PHQ-9 score was a 10, and she reported several days of thoughts of being better off . Today, PHQ-9 score is a 5. She reports that she has no thoughts of being better off or hurting herself or anyone else. She is happy with her current dose of medication and would like tocontinue. She is happy with the results she is seeing with phentermine and she would like to have this refilled today. On last visit, she weighed 254 pounds, and today she is down to 238. She states that in addition to taking the phentermine, she has really been working on her diet. She has cut pop out of her diet. She has also been walking more. She states that she would like to start going to the gym, however, this has been somewhat difficult that she does have 4 children at home. She has noticed that the pants are becoming more loose. She has noted a bit of dry mouth, but no other side effects. Blood pressure is stable today at 126/74. CURRENT MEDICATIONS Reviewed per EMR on 07/09/2013. ALLERGIES No known allergies. VITAL SIGNS WEIGHT: 108.2 kg. BODY MASS INDEX: 40.87 kg/m2. TEMP: 36.7 C. PULSE: 72 per minute. RESPIRATORY RATE: 14 per minute. BLOOD PRESSURE: 126/74. PHYSICAL EXAMINATION GENERAL: Alert and oriented female. Well developed and obese and in no acute distress. SKIN: Intact, without visible rash, lesion or ecchymosis. HEART: Regular rate and rhythm. Normal S1, S2 without murmur. LUNGS: Clear to auscultation bilaterally. No wheezes or crackles. Normal respiratory effort. EXTREMITIES: No edema. Full range of motion of all extremities. MENTAL: Patient is pleasant with good eye contact. Appropriate mood and affect. Normal judgment, insight. PHQ-9 score today is a 5. She denies any suicidal or homicidal ideation. She does not feel thatshe is a threat to herself or others. IMPRESSION/REPORT/PLAN 1. Depression, well controlled on current medication. 2. Obesity with desire for weight loss, doing well on phentermine. PLAN: 1. Patient would like to continue Effexor 75 mg p.o. daily and this is refilled for 1 year. I did encourage her to consider continuing with her support group in [place] if possible as she does feel that this has been helpful for her. She will return to the clinic in 1 year, sooner if worsening of symptoms. 2. Phentermine 37.5 mg 1 tablet by mouth daily refilled for 1 month. She will return to the clinic in 1 month for a nurse-only visit to check blood pressure and weight. Discussed that as long as she continues to lose weight and blood pressure is stable, I will refill this for her. She is encouraged tocontinue to work on her healthy diet and exercise. Ирина Coleman P.A.-C/krystle Electronically Signed By: ИРИНА COLEMAN PA-C On: 10/08/2013 06:27 PM Source: [facility] MHSDOLBEYNSHERINESYMarnie Document Id: [id number] ER CLOTH MAKER documented in this encounter Miscellaneous Notes Miscellaneous - Ирина Coleman - 07/09/2013 6:25 PM CDT Ambulatory Patient Summary [facility] [address] [place] [address] Visit Information Name: NANCY ROBINS [facility] Number: [id number] Current Date: 07/09/2013 18:25:19 Physicians Attending Provider: ИРИНА COLEMAN PA-C Primary Care Provider: LEXII MINOR Your Medications Here is a list of your medications. It is important to take your medications as directed. Use a pillbox or chart to help remind you to take your medications. Please let your doctor or nurse know if you have problems taking your medications. Medication/Strength Dose Route Frequency Indications/Special Instructions/Comments/Notes venlafaxine (Effexor XR 75 mg oral capsule, extended release) 75 mg Oral once a day phentermine (phentermine 37.5 mg oral tablet) 37.5 mg Oral once a day 1 hour before or 2 hours aftermeals etonogestrel (Nexplanon 68 mg subcutaneous implant) 68 mg Subcutaneous once Attention: If you have any medications at home that are not on this list, DO NOT take them until youcontact your provider for clarification. Your Allergies & Intolerances Substance Reaction Symptoms [...] Upcoming Appointments Date Time Location Reason Provider No Appointments found Your Goals/Additional instructions: Source: [facility] POWERCHART Document Id: [id number] Miscellaneous - Ирина Coleman - 07/09/2013 6:25 PM CDT Ambulatory Depart Summary [facility] [address] [place] [address] Visit Information Name: NANCY ROBINS [facility] Number: [id number] Visit Date: 07/09/2013 18:25:18 Attending Provider: ИРИНА COLEMAN PA-C Primary Care Provider: LEXII MINOR NANCY ROBINS has been given the following list of medications: Your Medications It is important to take your medications as directed. Use a pill box or chart to help remind you to take your medications. Please let your doctor or nurse know if you have problems taking your medications. Medication/Strength Dose Route Frequency Indications/Special Instructions/Comments/Notes venlafaxine (Effexor XR 75 mg oral capsule, extended release) 75 mg Oral once a day phentermine (phentermine 37.5 mg oral tablet) 37.5 mg Oral once a day 1 hour before or 2 hours aftermeals etonogestrel (Nexplanon 68 mg subcutaneous implant) 68 mg Subcutaneous once Attention: If you have any medications at home that are not on this list, DO NOT take them until youcontact your provider for clarification. Additional Information: Source: [facility] POWERCHART Document Id: [id number] Miscellaneous - Conversion, Historical Provider Ser - 07/09/2013 3:15 PM CDT Adult Digital Commentator Intake/History Adult Digital Commentator Intake/History Entered On: 07/09/2013 15:17 CDT Performed On: 07/09/2013 15:15 CDT by TOÑO FRAGA Chief Complaint : Phentermine refill Temperature Oral : 36.7 DegC(Converted to: 98.1 DegF) Peripheral Pulse Rate : 72 /min Respiratory Rate : 14 /min Heart Rhythm : Regular Systolic Blood Pressure : 126 mmHg Diastolic Blood Pressure : 74 mmHg NIBP Mean : 91 mmHg BP Location : Right upper extremity Blood Pressure Cuff Size : Large Height : 162.7 cm(Converted to: 5 ft 4 inch(es), 64.06 inch(es)) Actual Weight : 108.2 kg(Converted to: 238 lb 9 oz) Weight Source : Standing scale Dosing Weight Clinic : 108.2 kg Clinic BSA : 2.21 Body Mass Index : 40.87 kg/m2 TOÑO FRAGA - 07/09/2013 15:15 CDT General Info Information Given By : Patient Preferred Communication Mode : Verbal Languages : Samoan TOÑO FRAGA - 07/09/2013 15:15 CDT Subjective Pain Symptoms : No TOÑO FRAGA - 07/09/2013 15:15 CDT Dependent Habits Tobacco Use/Currently Using : No Exposure to Tobacco Smoke : Other: never Smoking Status : Never smoker TOÑO FRAGA - 07/09/2013 15:15 CDT Tobacco Use Grid Other Tobacco Frequency : never TOÑO FRAGA - 07/09/2013 15:15 CDT Caffeine Use Grid Caffeine Use : Current Type : Soft drinks Frequency : Daily TOÑO FRAGA - 07/09/2013 15:15 CDT Source: [employer] Document Id: [id number] CDT!36 Miscellaneous - Conversion, Historical Provider Ser - 07/09/2013 9:08 AM CDT PHQ-9 PHQ-9 Entered On: 07/11/2013 9:08 CDT Performed On: 07/09/2013 9:08 CDT by TOÑO FRAGA PHQ-9 Little interest or pleasure in doing things : Several days Feeling down, depressed, or hopeless : Several days Trouble falling or staying asleep, or sleeping too much : Several days Feeling tired or having little energy : Not at all Poor appetite or overeating : Not at all Feeling bad about yourself or that you are a failure : Several days Trouble concentrating on things : Several days Moving or speaking slowly; restless or fidgety : Not at all Thoughts that you would be better off /hurting self : Not at all PHQ-9 Calculated Score : 5 TOÑO FRAGA - 07/11/2013 9:08 CDT Source: [facility] [employer].comCHART Document Id: [id number] CDT!12 documented in this encounter Plan of Treatment Upcoming Encounters Date Type Specialty Care Team Description 08/17/2022 Procedure visit Neurology Marina Winter M.D., M.P.H. [address] [phone] (Wo rk) Scheduled Procedures Name Priority Associated Diagnoses Date/Time LIFT THIGH Excessive And Redundant Skin And Subcutaneous Tissue documented as of this encounter Visit Diagnoses Not on filedocumented in this encounter Additional Health Concerns Assessment Noted Time PHQ-9 Depression Total Score: 5 07/09/2013 9:08 AM CDT documented as of this encounter
--- OUTSIDE RECORDS SUMMARY | 2022-07-24 15:17 | XMS_ITS | Encounter Summary ---
:1985 Author Organization [facility] Address [address] [place] [address] Care Team Providers Name Role Phone Unavailable Primary Care Provider Unavailable Encounter Details Date Type Department Care Team Description 10/12/2014 Hospital Encounter HX [facility] Griselda Baird, ArnoldoA. [address] [place] [address] [place] [phone] (Wo rk) Social History Tobacco Use Types [...] How often do you attend quaker or holiness Never 07/04/2019 services? 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 10:53 AM LEARNING SUPPORT AIDE documented as of this encounter Last Filed Vital Signs Vital Sign Reading Time Taken Comments Blood Pressure 122/78 10/12/2014 9:00 AM LEARNING SUPPORT AIDE Pulse 76 10/12/2014 9:00 AM LEARNING SUPPORT AIDE Temperature - - Respiratory Rate 20 10/12/2014 9:00 AM LEARNING SUPPORT AIDE Oxygen Saturation - - Inhaled Oxygen Concentration - - Weight 124 kg (274 lb 7.6 oz) 10/12/2014 9:00 AM LEARNING SUPPORT AIDE Height 164 cm (5' 4.57) 10/12/2014 9:00 AM LEARNING SUPPORT AIDE Body Mass Index 46.29 10/12/2014 9:00 AM LEARNING SUPPORT AIDE documented in this encounter Progress Notes Griselda Coleman L - 10/12/2014 8:45 AM CST [id number] CHIEF COMPLAINT/REASON FOR VISIT Discuss medications. HISTORY OF PRESENT ILLNESS Nancy is a 29-year-old female who presents to the clinic today to discuss medications. Primary care provider is Jenae Minor. Nancy states that she was not able to see Jenae until the end of [facility], and she actually has an appointment scheduled with her on 11/04/2014. However, she wanted to come in sooner to discuss getting back on medications for weight loss. She states that she has had a lot of success with phentermine in the past, had been on that for 5 or 6 months, and has dropped about 40 pounds or so. She states that she would like to get back down to about 222 pounds especially before her wedding which is coming up in April. She is now weighing in at 274. She states that she did have a lot of headaches when she was taking the phentermine. No other side effects to the phentermine. She states she was having so many headaches, so she stopped all of her medication and her headaches went away. She started back on the phentermine and the headaches seemed to resume. She is wondering about other options as well. She is also interested in getting back on her Effexor. She states that she has a longstanding history of depression dating back to when she was 13 years old. She has also had a little bit of anxiety. Her main stressors are her kids. She states that she feels like a single parent, although she does live with a long- term partner. She states that she has a 3-year-old son with severe ADHD, and that is where the bulk of her problems come from. She states that no one will help her with her children because of the problems with her son. She does not feel that she has a good support system. She does see a therapist, Steven, in [place] every month or 2. She is currently working part-time, but that has not been going well. She had previously done well with Effexor 75 mg daily, but had taken herself off ofthat because of headaches. She was not sure what was causing the headache, but she thinks it may be the phentermine. PHQ-9 score today is a 10. No suicidal or homicidal ideation. See copy in EMR for full details. MEDICATION Reviewed per EMR on 10/12/2014. ALLERGIES No known allergies. PAST MEDICAL/SURGICAL HISTORY 1. 4, para 3 with 3 sections and 1 miscarriage. 2. Endometriosis, status post laparoscopy. 3. Jaw surgery. 4. Tonsillectomy and adenoidectomy. 5. Cholecystectomy. 6. Morbid obesity. VITAL SIGNS Weight 124.5 kg. Body mass index 46.29 kg/m2, temp 36.7 C, pulse 76, respiratory 20 per minute. Blood pressure 122/78. PHYSICAL EXAMINATION GENERAL: Alert oriented female. Well developed and morbidly obese, in no acute distress. SKIN: Intact without suspicious rash or lesion. HEART: Regular rate and rhythm. Normal S1, S2. No murmur. LUNGS: Clear to auscultation bilaterally. No wheezes or crackles. Normal respiratory effort. MENTAL: Patient is pleasant. Good eye contact. Slightly flattened affect. Appears to have normal judgment and insight. PHQ-9 score today is a 10. No suicidal or homicidal ideation. IMPRESSION/REPORT/PLAN 1. Morbid obesity with desire for weight loss. 2. Depression. PLAN: 1. She is interested in restarting her phentermine for the time being, especially to help her lose weight for her upcoming wedding in April. She has had some headaches in the past with this, so we will need to monitor for that. No other side effects. She has never had any problems with her blood pressure on the phentermine. We did discuss the possibility of some other weight loss drugs. Ultimately, with her current body mass index of 46.29 kg/m2, we did discuss that a longer term solution for her maybe to consider consult for bariatric procedure, which she is very interested in. Referral was made to [facility]. Prescription for phentermine given in clinic today, and she is actually scheduled to see her primary care provider on 11/04/2014 for followup. 2. Plan to restart Effexor 37.5 mg daily for 1 week, then increase to 75 mg daily thereafter. She isscheduled to see her primary care provider for followup on 11/04/2014. Yariel Delarosa Electronically Signed By: GRISELDA COLEMAN PA-C On: 12/28/2014 09:05 AM Source: [facility] MHSDOLBEYNONRADSYS Document Id: [id number] NING SUPPORT AIDE documented in this encounter Nursing Notes Jeremy Contreras - 10/14/2014 8:46 AM CST REFERRAL PER GRISELDA COLEMAN REFERRAL TO [facility] FOR MORBID OBESITY / DISCUSS WT LOSS PROCEDURES SUBMITTED VIA OSRP. Electronically Signed By: JEREMY CONTRERAS On: 10/14/2014 08:48 AM Source: [facility] Document Id: [id number] NING SUPPORT AIDE documented in this encounter Miscellaneous Notes Miscellaneous - Danielle Duenas L.P.N. - 10/12/2014 10:16 AM CST PHQ-9 PHQ-9 Entered On: 10/12/2014 10:16 LEARNING SUPPORT AIDE Performed On: 10/12/2014 10:16 LEARNING SUPPORT AIDE by DANIELLE DUENAS LPN PHQ-9 Little interest or pleasure in [...] Not at all PHQ-9 Calculated Score : 10 Problems make work, home, or dealing with others : Very difficult DANIELLE DUENAS LPN - 10/12/2014 10:16 LEARNING SUPPORT AIDE Source: [facility] POWERCHART Document Id: [id number] LEARNING SUPPORT AIDE!13 NING SUPPORT AIDE Miscellaneous - Griselda Coleman - 10/12/2014 9:50 AM CST Ambulatory Patient Summary [facility] [address] [facility] [place] [id number] Visit Information Name: NANCY ROBINS [facility] Number: [id number] Current Date: 10/12/2014 09:50:01 Physicians Attending Provider: GRISELDA COLEMAN PA-C Primary Care Provider: JENAE MINOR PA-C TAYE, NANCY ELIZABETH has been given the following list [...] skip placebos and start the next pack phentermine (phentermine 37.5 mg oral tablet) 1 Tablet(s), Oral, once a day New Routed to [facility] venlafaxine (Effexor XR 37.5 mg oral capsule, extended release) See Instructions Take 1 cap PO Dailyx 1 week, then increase to 2 caps PO Daily thereafter. New Routed to [place] [address] [place] [address] Stop Taking the Following Medications: Medication list as of 10-12-14 09:50 Attention: If you have any medications at home that are not on this list, DO NOT take them until youcontact your provider for clarification. Give a copy of your medication list to your primary care provider. Update your medication list any time medications or doses are changed and carry your medication list at all times in case of emergency. Electronically Signed By: GRISELDA COLEMAN PA-C Signed On:12-OCT-2014 09:49:52 Your Allergies & Intolerances Substance Reaction Symptoms [...] Your Upcoming Appointments Date Time Location Provider 11/04/2014 10:45 [facility] Jenae Stein Attention: Contact your local Clinic if further appointment detail needed. Your Goals/Additional instructions: Source: [facility] POWERCHART Document Id: [id number] NING SUPPORT AIDE Miscellaneous - Griselda Coleman - 10/12/2014 9:50 AM CST Ambulatory Discharge Medication List [facility] [address] [place] [id number] Visit Information Name: NANCY ROBINS [facility] Number: [id number] Visit Date: 10/12/2014 09:49:59 Attending Provider: GRISELDA COLEMAN PA-C Primary Care Provider: JENAE MINOR PA-C NANCY ROBINS has been given [...] skip placebos and start the next pack phentermine (phentermine 37.5 mg oral tablet) 1 Tablet(s), Oral, once a day New Routed to [place] venlafaxine (Effexor XR 37.5 mg oral capsule, extended release) See Instructions Take 1 cap PO Dailyx 1 week, then increase to 2 caps PO Daily thereafter. New Routed to [address] [address] Stop Taking the Following Medications: Medication list as of 10-12-14 09:50 Attention: If you have any medications at home that are not on this list, DO NOT take them until youcontact your provider for clarification. Give a copy of your medication list to your primary care provider. Update your medication list any time medications or doses are changed and carry your medication list at all times in case of emergency. Electronically Signed By: GRISELDA COLEMAN PA-C Signed On:12-OCT-2014 09:49:52 Additional Information: Source: [facility] POWERCHART Document Id: [id number] NING SUPPORT AIDE Miscellaneous - Danielle Duenas LRodrigoPRodrigoN. - 10/12/2014 9:00 AM CST Adult Sample Tailor Intake/History Adult Sample Tailor Intake/History Entered On: 10/12/2014 9:05 LEARNING SUPPORT AIDE Performed On: 10/12/2014 9:00 LEARNING SUPPORT AIDE by DANIELLE DUENAS LPN Intake Chief Complaint : discuss meds Ambulatory Intake Additional Information : 15+ months ago LMP Temperature Oral : 36.7 DegC(Converted to: 98.1 DegF) Peripheral Pulse Rate : 76 /min Respiratory Rate : 20 /min Heart Rhythm : Regular Systolic Blood Pressure : 122 mmHg Diastolic Blood Pressure : 78 mmHg NIBP Mean : 93 mmHg BP Location : Right upper extremity Blood Pressure Cuff Size : Large Height : 164 cm(Converted to: 5 ft 5 inch(es), 65 inch(es)) Actual Weight : 124.5 kg(Converted to: 274 lb 8 oz) Weight Source : Standing scale Dosing Weight Clinic : 124.5 kg Clinic BSA : 2.38 Body Mass Index : 46.29 kg/m2 DANIELLE DUENAS LPN - 10/12/2014 9:00 LEARNING SUPPORT AIDE General Info Information Given By : Patient Languages : Bulgarian Is Patient Female and 13-50 no hysterectomy : Yes Status : Patient denies Are you ? : No DANIELLE DUENAS LPN - 10/12/2014 9:00 LEARNING SUPPORT AIDE Subjective Pain Symptoms : No DANIELLE DUENAS LPN - 10/12/2014 9:00 LEARNING SUPPORT AIDE Dependent Habits Tobacco Use/Currently Using : No Exposure to Tobacco Smoke : Other: never Smoking Status : Never smoker DANIELLE DUENAS LPN - 10/12/2014 9:00 LEARNING SUPPORT AIDE Tobacco Use Grid Other Tobacco Frequency : never DANIELLE DUENAS LPN - 10/12/2014 9:00 LEARNING SUPPORT AIDE Caffeine Use Grid Caffeine Use : Current Type : Soft drinks Frequency : Daily DANIELLE DUENAS LPN - 10/12/2014 9:00 LEARNING SUPPORT AIDE ID Screen Travel Within Last 21 Days : No DANIELLE DUENAS LPN - 10/12/2014 9:00 LEARNING SUPPORT AIDE Source: [facility] POWERCH[facility] Document Id: [id number] LEARNING SUPPORT AIDE!41 NING SUPPORT AIDE Miscellaneous - Danielle Duenas L.P.NRodrigo - 10/12/2014 8:58 AM CST Health Assessment Health Assessment Entered On: 10/12/2014 9:00 LEARNING SUPPORT AIDE Performed On: 10/12/2014 8:58 LEARNING SUPPORT AIDE by DANIELLE DUENAS [facility] Health Assessment Complete Health Assessment Complete or Modified : Annual Health Assessment Annual Health Assessment Completed : Yes DANIELLE DUENAS LPN - 10/12/2014 8:58 LEARNING SUPPORT AIDE Nutrition Weight Gain Amount : 48 kg Nutrition Risk Factors by History Adult : Unintentional weight loss greater than 10 lbs in last 6 months DANIELLE DUENAS [facility] - 10/12/2014 8:58 LEARNING SUPPORT AIDE Functional Current Daily Living Assistance : None DANIELLE DUENAS [facility] - 10/12/2014 8:58 LEARNING SUPPORT AIDE Dependent Habits Tobacco Use/Currently Using : No Exposure to Tobacco Smoke : Other: never Smoking Status : Never smoker DANIELLE DUENAS [facility] - 10/12/2014 8:58 LEARNING SUPPORT AIDE Tobacco Use Grid Other Tobacco Frequency : never DANIELLE DUENAS [facility] - 10/12/2014 8:58 LEARNING SUPPORT AIDE Caffeine Use Grid Caffeine Use : Current Type : Soft drinks Frequency : Daily DANIELLE DUENAS [facility] - 10/12/2014 8:58 LEARNING SUPPORT AIDE Psychosocial Domestic Abuse Concerns : None Hoahaoism Preference : No qualifying data available. DANIELLE DUENAS [facility] - 10/12/2014 8:58 LEARNING SUPPORT AIDE Advance Directive Advanced Directives : No Advance Directive Additional Information : No DANIELLE DUENAS [facility] - 10/12/2014 8:58 LEARNING SUPPORT AIDE Educ Needs Learning Style Preference Adult Grid Patient : Video/Educational TV Family : None DANIELLE DUENAS [facility] - 10/12/2014 8:58 LEARNING SUPPORT AIDE Source: [facility] POWERCHART Document Id: [id number] LEARNING SUPPORT AIDE!31 NING SUPPORT AIDE documented in this encounter Plan of Treatment Upcoming Encounters Date Type Specialty Care Team Description 08/17/2022 Procedure visit Neurology Marina Winter M.D., M.P.H. [address] [place] [address] [phone] (Wo rk) Scheduled Procedures Name Priority Associated Diagnoses Date/Time LIFT THIGH Excessive And Redundant Skin And Subcutaneous Tissue documented as of this encounter Visit Diagnoses Not on filedocumented in this encounter Additional Health Concerns Assessment Noted Time PHQ-9 Depression Total Score: 10 10/12/2014 10:[address] documented as of this encounter
--- OUTSIDE RECORDS SUMMARY | 2022-07-24 15:17 | XMS_ITS | Encounter Summary ---
:1985 Author Organization [facility] Address [address] [place] [address] Care Team Providers Name Role Phone Unavailable Primary Care Provider Unavailable Encounter Details Date Type Department Care Team Description 10/08/2014 Hospital Encounter [facility]X [facility] Bryson Escobar Jr., M.D. [address] [place], [place] [phone] (Wo rk) Social History [...] 03/29/2020 relatives? How often do you attend catholic or judaism Never 07/04/2019 services? Do you belong to any clubs or organizations such as No 07/04/2019 catholic groups, unions, fraternal or athletic groups, or [...] Date Recorded Female 10/16/2018 10:53 AM SPORTS ANNOUNCER documented as of this encounter Last Filed Vital Signs Vital Sign Reading Time Taken Comments Blood Pressure 118/68 10/08/2014 8:31 AM SPORTS ANNOUNCER Pulse 60 10/08/2014 8:31 AM SPORTS ANNOUNCER Temperature - - Respiratory Rate - - Oxygen Saturation - - Inhaled Oxygen Concentration - - Weight 123 kg (270 lb 15.1 oz) 10/08/2014 8:31 AM SPORTS ANNOUNCER Height 164 cm (5' 4.57) 10/08/2014 8:31 AM SPORTS ANNOUNCER Body Mass Index 45.69 10/08/2014 8:31 AM SPORTS ANNOUNCER documented in this encounter Progress Notes Bryson Hoang Jr., M.D. - 10/08/2014 8:28 AM CST [id number] CHIEF COMPLAINT/REASON FOR VISIT Nexplanon removal and contraception counseling. HISTORY OF PRESENT ILLNESS Nancy is a 29 year old female, 4, para 3-0-1-3 female who presents to the clinic for Nexplanon removal and to contraception counseling. She currently has Nexplanon implant; however, she states that this has caused decreased interest in sex and mood swings for her. Nancy expresses interest in Depo Provera today, as she has done well on this in the past. She states that she is not interested in OCPs, as she became with these previously. She is not interested in future pregnancies for at least 2-3 years. MEDICATIONS Nexplanon implant. Removed today. Norgestimate-ethinyl estradiol 0.25 mg-3 mg by mouth daily. Prescribed today. Hydroxyzine 25 mg by mouth up to 4x daily as needed for migraines. ALLERGIES No known allergies SYSTEMS REVIEW Please see HPI, otherwise negative. PAST MEDICAL/SURGICAL HISTORY PAST MEDICAL HISTORY: Endometriosis. Genital herpes. Gestational diabetes. History of miscarriage. Major depressive disorder. Migraine headache. Gestational diabetes. PAST SURGICAL HISTORY: without complication, 11/30/2006. section x3. Cholecystectomy, 11/29/2005. Laparoscopy, 1999. Laparotomy, peritoneal adhesion divided, 2008. Tonsillectomy and adenoidectomy, 1994. PHYSICAL EXAMINATION VITAL SIGNS: Weight is 122.9 kg, pulse is 60/min, blood pressure is 118/66. GENERAL: Patient appears well groomed and well nourished. No acute distress. Oriented times three. SKIN: Normal without any evidence of rash or lesions. Nexplanon is removed from left upper extremitytoday-please see separate report for details. IMPRESSION/REPORT/PLAN: [age] year old 4, para 3-0-1-3 female who desires Nexplanon removal and alternative hormonal contraception. PLAN: 1. Contraception: Patient is have decreased libido and mood swings on Nexplanon and she desires an alternative form of contraception. Nexplanon is removed today. Other control options are discussed, including Depo Provera, OCPs, and Mirena IUD. She has previously done well on Depo Provera; however she elects not to proceed with this today, as it may worsen her difficulties with weight gain. Patient would like to try OCPs, and norgestimate-ethinyl estradiol is prescribed today. She is counseledon using pills to skip periods, and she can try taking 84 active pills followed by 5 placebo pills if she wishes to do this. If patient is not doing well on OCPs, may consider Mirena IUD in the future. 2. Follow up: The patient will return to the clinic later this month for routine annual examination. ADMINISTRATIVE BILLING: Please note that 100% of this 15 minute visit were spent counseling patient on contraception options. This document serves as a record of services personally performed by Bryson Hoang MD. It was created on their behalf by Amanda Smith, a trained medical appliance maker. The creation of this record is based on the scribe's personal observations and the provider's statements to them. This document has been ch ecked and approved by the attending provider. Bryson Hoang M.D./joselito Electronically Signed By: BRYSON HOANG MD On: 10/08/2014 11:32 AM Source: [facility] MHSDOLBEYNONRADSYS Document Id: [id number] TS ANNOUNCER Bryson Hoang Jr., M.D. - 10/08/2014 8:28 AM CST [id number] CHIEF COMPLAINT/REASON FOR VISIT Nexplanon removal. IMPRESSION/REPORT/PLAN PROCEDURE IN DETAIL: Surrounding area is covered with sterile cloth. Implanon device is palpated on the left arm. 1% lidocaine with epinephrine was used to anesthetize the area. Betadine is used to cleanse the area. An 11 blade straight scalpel was then used to create a .5cm skin incision at the distal aspect of the Nexplanon implant. Pickups and forceps were used to grasp and remove Nexplanon. Arm is then washed with hydrogen peroxide and Steri-Strips were placed over the area. Gauze was wrapped around the area. The patient tolerated the procedure well. Patient should keep the area clean and dry for 24 hours. This document serves as a record of services personally performed by Bryson Hoang MD. It was created on their behalf by Amanda Smith, a trained medical appliance maker. The creation of this record is based on the scribe's personal observations and the provider's statements to them. This document has been ch ecked and approved by the attending provider. Bryson Hoang M.D./joselito Electronically Signed By: BRYSON HOANG MD On: 10/08/2014 04:00 PM Source: [facility] MHSDOLBEYNONRADSYS Document Id: [id number] TS ANNOUNCER documented in this encounter Miscellaneous Notes Miscellaneous - Bryson Hoang Jr., M.D. - 10/08/2014 8:44 AM CST Ambulatory Patient Summary [facility] [address] [place] [id number] Visit Information Name: NANCY ROBINS [facility] Number: [id number] Current Date: 10/08/2014 08:44:23 Physicians Attending Provider: BRYSON HOANG MD Primary Care Provider: LEXII MINOR PA-C TAYENANCY KEYS has been given the following list of [...] skip placebos and start the next pack New Routed to [address] [place], [place] [id number] Stop Taking the Following Medications: etonogestrel (Nexplanon 68 mg subcutaneous implant) Medication list as of 10-08-14 08:44 Attention: If you have any medications at [...] Electronically Signed By: BRYSON HOANG MD Signed On:08-OCT-2014 08:44:18 Your Allergies & Intolerances Substance Reaction Symptoms [...] Your Upcoming Appointments Date Time Location Provider 10/12/2014 09:15 [facility]iselda Mckeon PA-C 11/04/2014 10:45 [facility] Lexii Stein Attention: Contact your local Clinic if further appointment detail needed. Your Goals/Additional instructions: Source: [facility] POWERCHART Document Id: [id number] TS ANNOUNCER Miscellaneous - Bryson Hoang Jr., M.D. - 10/08/2014 8:44 AM CST Ambulatory Discharge Medication List [facility] [address] [facility] [place] [id number] Visit Information Name: NANCY ROBINS [facility] Number: [id number] Visit Date: 10/08/2014 08:44:22 Attending Provider: BRYSON HOANG MD Primary Care Provider: LXEII MINOR PA-C NANCY ROBINS has been given [...] skip placebos and start the next pack New Routed to [address] [place] [address] Stop Taking the Following Medications: etonogestrel (Nexplanon 68 mg subcutaneous implant) Medication list as of 10-08-14 08:44 Attention: If you have any medications at [...] Electronically Signed By: BRYSON HOANG MD Signed On:08-OCT-2014 08:44:18 Additional Information: Source: [facility] POWERCHART Document Id: [id number] TS ANNOUNCER Miscellaneous - Nicki Vaz, RRodrigoN. - 10/08/2014 8:31 AM CST Adult Cardio Tech Intake/History Adult Cardio Tech Intake/History Entered On: 10/08/2014 8:33 SPORTS ANNOUNCER Performed On: 10/08/2014 8:31 SPORTS ANNOUNCER by NICKI PAIGE Intake Chief Complaint : remove Nexplanon / start Depo Provera LMP Date : N/A Peripheral Pulse Rate : 60 /min Systolic Blood Pressure : 118 mmHg Diastolic Blood Pressure : 68 mmHg NIBP Mean : 85 mmHg BP Location : Right upper extremity Blood Pressure Cuff Size : Large Height : 164 cm(Converted to: 5 ft 5 inch(es), 65 inch(es)) Actual Weight : 122.9 kg(Converted to: 270 lb 15 oz) Dosing Weight Clinic : 122.9 kg Clinic BSA : 2.37 Body Mass Index : 45.69 kg/m2 INCKI PAIGE - 10/08/2014 8:31 SPORTS ANNOUNCER General Info Languages : Divehi Is Patient Female and 13-50 no hysterectomy : Yes Status : Patient denies Are you ? : No NICKI PAIGE - 10/08/2014 8:31 SPORTS ANNOUNCER Subjective Pain Symptoms : No NICKI PAIGE - 10/08/2014 8:31 SPORTS ANNOUNCER Dependent Habits Tobacco Use/Currently Using : No Exposure to Tobacco Smoke : Other: never Smoking Status : Never smoker NICKI PAIGE - 10/08/2014 8:31 SPORTS ANNOUNCER Tobacco Use Grid Other Tobacco Frequency : never NICKI PAIGE - 10/08/2014 8:31 SPORTS ANNOUNCER Caffeine Use Grid Caffeine Use : Current Type : Soft drinks Frequency : Daily NICKI PAIGE - 10/08/2014 8:31 SPORTS ANNOUNCER ID Screen Travel Within Last 21 Days : No NICKI PAIGE - 10/08/2014 8:31 SPORTS ANNOUNCER [facility] POWER[facility] Document Id: [id number] SPORTS ANNOUNCER!36 TS ANNOUNCER documented in this encounter Plan of Treatment Upcoming Encounters Date Type Specialty Care Team Description 08/17/2022 Procedure visit Neurology Marina Winter M.D., M.P.H. [address] [phone] (Wo rk) Scheduled Procedures Name Priority Associated Diagnoses Date/Time LIFT THIGH Excessive And Redundant Skin And Subcutaneous Tissue documented as of this encounter Visit Diagnoses Not on filedocumented in this encounter Additional Health Concerns Assessment Noted Time PHQ-9 Depression Total Score: 5 02/18/2014 10:07 AM CD T documented as of this encounter
--- OUTSIDE RECORDS SUMMARY | 2022-07-24 15:17 | XMS_ITS | Encounter Summary ---
:1985 Author Organization [facility] Address [address] [place] [address] Care Team Providers Name Role Phone Unavailable Primary Care Provider Unavailable Encounter Details Date Type Department Care Team Description 02/09/2014 Hospital Encounter HX [facility] Grandalfred, Lizandro Olguin, P.A.-C., P.A. [address] [place], [place] [address] (Wo rk) Social History [...] How often do you attend anabaptism or gnosticist Never 07/04/2019 services? 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 - 02/09/2014 10:50 AM CDT Nurse Only Documentation Nurse Only Documentation Entered On: 02/09/2014 10:53 CDT Performed On: 02/09/2014 10:50 CDT by CHAPIS DAVALOS Nurse Only Documentation Nurse Only Visit Documentation : Here for wt and b/p check for Phetermine refill. B/p today 102/72 and wt was 107. Last wt was 106.6 and b/p 122/74. CHAPIS DAVALOS - 02/09/2014 10:50 CDT Vitals/Ht/Wt Systolic Blood Pressure : 102 mmHg Diastolic Blood Pressure : 72 mmHg NIBP Mean : 82 mmHg Actual Weight : 107 kg(Converted to: 235 lb 14 oz) Dosing Weight Clinic : 107 kg CHAPIS DAVALOS - 02/09/2014 10:50 CDT [facility] POWERCHART Document Id: [id number] CDT!9 documented in this encounter Plan of Treatment Upcoming Encounters Date Type Specialty Care Team Description 08/17/2022 Procedure visit Neurology Marina Winter M.D., M.P.H. [address] [phone] (Wo rk) Scheduled Procedures Name Priority Associated Diagnoses Date/Time LIFT THIGH Excessive And Redundant Skin And Subcutaneous Tissue documented as of this encounter Visit Diagnoses Not on filedocumented in this encounter Additional Health Concerns Assessment Noted Time PHQ-9 Depression Total Score: 5 07/09/2013 9:08 AM CDT documented as of this encounter
--- OUTSIDE RECORDS SUMMARY | 2022-07-24 15:17 | XMS_ITS | Encounter Summary ---
:1985 Author Organization [facility] Address [address] [place] [address] Care Team Providers Name Role Phone Unavailable Primary Care Provider Unavailable Encounter Details Date Type Department Care Team Description 07/23/2013 Hospital Encounter HX [facility] Nika Rosales i, M.D. [address] [place] [phone] (Wo rk) Social History Tobacco [...] How often do you attend baptist or sikh Never 07/04/2019 services? 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 - 07/23/2013 9:26 AM CDT [id number] CHIEF COMPLAINT/ REASON FOR VISIT Ingrown toenail. HISTORY OF PRESENT ILLNESS Nancy is a 28 year old female who presents to the clinic today with an ingrown toenail. She has had an painful ingrown toenail on her left great toe for two weeks. She has been trimming her nail to try to relieve her symptoms. The patient denies any additional questions or concerns at this time. CURRENT MEDICATIONS Post-visit Medication Reconciliation Reviewed and are as outlined in the EMR ALLERGIES No known allergies. SYSTEMS REVIEW See HPI. PAST MEDICAL/SURGICAL HISTORY MEDICAL HISTORY 1. Endometriosis Pelvic Peritoneum 2. Genital Herpes 3. Gestational diabetes 4. History of miscarriage 5. Depression 6. Migraine headache 7. section PREVENTIVE SERVICES: Tobacco use: None. VITAL SIGNS HEIGHT: 165 cm WEIGHT: 106.5 kg BMI: 39.12 kg/m2 TEMPERATURE: 36.6 DegC PULSE: 80 /min RESPIRATORY RATE: 20 /min BLOOD PRESSURE: 118 mmHg/70 mmHg PHYSICAL EXAM GENERAL: Patient is alert and oriented times three, in no acute distress, good hygiene and is dressed appropriately. EXTREMITIES: Within normal limits except for redness and swelling and significant tenderness of the perionychial tissue of the left great toe lateral aspect. The nail is deeply trimmed in this area. PROCEDURE: After reviewing risks and benefits of partial nail excision, a digital block is performedusing 3ccs of Xylocaine without epinephrine. After adequate anesthesia is obtained, the lateral quarter inch of the left great toenail is removed. Phenol is used at the nail base to ablate the tissues and is neutralized with isopropyl alcohol. The area is dressed with antibiotic ointment and gauze. IMPRESSION/REPORT/PLAN 1. Ingrown toenail: This partially removed as above. Wound instructions are given. 2. Follow up: The patient will contact the clinic with any new or worsening symptoms. This document serves as a record of services personally performed by Nika Rosen MD. It was created on their behalf by Lacey Corley, a trained medical staff assistant. The creation of this record is based on the scribe's personal observations and the provider's statements to them. This document has been latricia cked and approved by the attending provider. Nika Rosen M.D./dorcas Electronically Signed By: NIKA ROSEN MD On: 08/04/2013 02:40 PM Source: [facility] MHSDOLBEYNONRADSYS Document Id: [id number] documented in this encounter Miscellaneous Notes Miscellaneous - Nika Ruth M.D. - 07/23/2013 10:28 AM CDT [place] [address] Visit Information Name: NANCY ROBINS [facility] Number: [id number] Visit Date: 07/23/2013 10:28:55 Attending Provider: NIKA ROSEN MD Primary Care Provider: LEXII MINOR NANCY ROBINS [...] your provider for clarification. Additional Information: Source: [facility] POWERCHART Document Id: [id number] Miscellaneous - Nika Ruth M.D. - 07/23/2013 10:28 AM CDT Ambulatory Patient Summary [address] [address] Visit Information Name: NANCY ROBINS [facility] Number: [id number] Current Date: 07/23/2013 10:28:56 Physicians Attending Provider: NIKA ROSEN MD Primary Care Provider: LEXII MINOR Your Medications [...] No Appointments found Your Goals/Additional instructions: Source: [facility] POWERCHART Document Id: [id number] Miscellaneous - Conversion, Historical Provider Ser - 07/23/2013 9:34 AM CDT Adult Rn Admit Intake/History Adult Rn Admit Intake/History Entered On: 07/23/2013 9:37 CDT Performed On: 07/23/2013 9:34 CDT by ADRIANNA SHANITA, MAILEALYX LUNA LPN Intake Chief Complaint : left great toe sore Temperature Core : 36.6 DegC(Converted to: 97.9 DegF) Peripheral Pulse Rate : 80 /min Respiratory Rate : 20 /min Systolic Blood Pressure : 118 mmHg Diastolic Blood Pressure : 70 mmHg NIBP Mean : 86 mmHg BP Location : Right upper extremity Blood Pressure Cuff Size : Large Height : 165 cm(Converted to: 5 ft 5 inch(es), 64.96 inch(es)) Actual Weight : 106.5 kg(Converted to: 234 lb 13 oz) Dosing Weight Clinic : 106.5 kg Clinic BSA : 2.21 Body Mass Index : 39.12 kg/m2 MAILE ORLANDO [facility] - 07/23/2013 9:34 CDT General Info Information Given By : Patient Languages : Cape Verdean MAILE ORLANDO [facility] - 07/23/2013 9:34 CDT Subjective Pain Symptoms : Yes MAILE ORLANDO [facility]EREM[facility] - 07/23/2013 9:34 CDT Pain Pain Assessment Grid Pain 1 Location : Other: toe Laterality : Left ADRIANNA SHANITAMAILE [facility] - 07/23/2013 9:34 CDT Dependent Habits Tobacco Use/Currently Using : No Exposure to Tobacco Smoke : Other: never Smoking Status : Never smoker ADRIANNA SHANITAMIRNAMAILE CAROL ROLL WRAPPER - 07/23/2013 9:34 CDT Tobacco Use Grid Other Tobacco Frequency : never ADRIANNA SHANITAMIRNAMAILE CAROL ROLL WRAPPER - 07/23/2013 9:34 CDT Caffeine Use Grid Caffeine Use : Current Type : Soft drinks Frequency : Daily ADRIANNA MIRNA DIEHLALYX LUNA ROLL WRAPPER - 07/23/2013 9:34 CDT [facility] Document Id: [id number] CDT!38 documented in this encounter Plan of Treatment Upcoming Encounters Date Type Specialty Care Team Description 08/17/2022 Procedure visit Neurology Marina Winter M.D., M.P.H. [address] [phone] (Wo rk) Scheduled Procedures Name Priority Associated Diagnoses Date/Time LIFT THIGH Excessive And Redundant Skin And Subcutaneous Tissue documented as of this encounter Visit Diagnoses Not on filedocumented in this encounter Additional Health Concerns Assessment Noted Time PHQ-9 Depression Total Score: 5 07/09/2013 9:08 AM CDT documented as of this encounter
--- OUTSIDE RECORDS SUMMARY | 2022-07-24 15:17 | XMS_ITS | Encounter Summary ---
:1985 Author Organization [facility] Address [address] [place] [address] Care Team Providers Name Role Phone Unavailable Primary Care Provider Unavailable Encounter Details Date Type Department Care Team Description 02/17/2015 Hospital Encounter HX [facility] Nadir Oneal P.A.-C. [address] [place] [phone] (Wo rk) Social History Tobacco Use Types [...] How often do you attend jainism or mu-ism Never 07/04/2019 services? 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 - 02/17/2015 2:45 PM CDT [id number] CHIEF COMPLAINT/REASON FOR VISIT Cough. HISTORY OF PRESENT ILLNESS Nancy is a pleasant 29-year-old female who saw Dr. Siddiqi a couple days ago and was diagnosed with bronchitis and treated with antibiotics. She has been on Zithromax and it does not seem to be getting better and it is bothering her. PHYSICAL EXAMINATION VITAL SIGNS: Noted in EMR. GENERAL: She appears in no acute distress. ENT: TMs are not erythematous. Throat no erythema. She does have some loose sounding cough. HEART: Regular rate and rhythm. No murmurs. LUNGS: Clear to auscultation. IMPRESSION/REPORT/PLAN Bronchitis. PLAN: I agree with the diagnosis, but this is most likely a viral etiology and the antibiotics are not likely to help her anyway. I am going to have her continue to push fluids. I will have her take Benadryl at nighttime which can help dry up the secretions and hopefully help with her coughing symptoms. If it worsens or does not improve within the next 3 to 5 days, she will let us know. Otherwise, I have her follow up as needed. Jennifer Oneal PA-C/pepe Electronically Signed By: JENNIFER ONEAL PA-C On: 02/17/2015 04:44 PM Source: [facility] MHSDOLBEYNONRADSYS Document Id: [id number] documented in this encounter Miscellaneous Notes Miscellaneous - Jennifer Oneal P.A.-C. - 02/17/2015 3:56 PM CDT Ambulatory Patient Summary [address], [place] [id number] Visit Information Name: NANCY PHILLIPS [facility] Number: [id number] Current Date: 02/17/2015 15:55:59 Physicians Attending Provider: JENNIFER ONEAL PA-C Primary Care Provider: LEXII MINOR PA-C NANCY [...] 2-5, Oral, as directed x 5 day(s) hydrOXYzine (Vistaril 25 mg oral capsule) 1 [...] the Following Medications: Medication list as of 02-17-15 15:56 Attention: If you have any medications at home that are not on this list, DO NOT take them until youcontact your provider for clarification. Give a copy of your medication list to your primary care provider. Update your medication list any time medications or doses are changed and carry your medication list at all times in case of emergency. Electronically Signed By: JENNIFER ONEAL PA-C Signed On:17-FEB-2015 15:55:52 Your Allergies & Intolerances Substance Reaction Symptoms [...] appointment detail needed. Your Goals/Additional instructions: Source: [facility] POWERCHART Document Id: [id number] Miscellaneous - Jennifer Oneal P.A.-C. - 02/17/2015 3:55 PM CDT Ambulatory Discharge Medication List [address] [id number] Visit Information Name: NANCY PHILLIPS [facility] Number: [id number] Visit Date: 02/17/2015 15:55:57 Attending Provider: JENNIFER ONEAL PA-C Primary Care Provider: LEXII MINOR PA-C NANCY [...] 2-5, Oral, as directed x 5 day(s) hydrOXYzine (Vistaril 25 mg oral capsule) 1 [...] the Following Medications: Medication list as of 02-17-15 15:55 Attention: If you have any medications at home that are not on this list, DO NOT take them until youcontact your provider for clarification. Give a copy of your medication list to your primary care provider. Update your medication list any time medications or doses are changed and carry your medication list at all times in case of emergency. Electronically Signed By: JENNIFER ONEAL PA-C Signed On:17-FEB-2015 15:55:52 Additional Information: Source: [facility] POWERCHART Document Id: [id number] Miscellaneous - Waldo Burnett LRodriogPRodrigoN. - 02/17/2015 3:14 PM CDT Adult Manager Spa Intake/History Adult Manager Spa Intake/History Entered On: 02/17/2015 15:18 CDT Performed On: 02/17/2015 15:14 CDT by WALDO BURNETT Intake Chief Complaint : bronchitis continues Temperature Core : 36.1 DegC(Converted to: 97.0 DegF) (LOW) Peripheral Pulse Rate : 120 /min (HI) Respiratory Rate : 16 /min Systolic Blood Pressure : 126 mmHg Diastolic Blood Pressure : 70 mmHg NIBP Mean : 89 mmHg BP Location : Left upper extremity Blood Pressure Cuff Size : Large SpO2 : 98 % Height : 164 cm(Converted to: 5 ft 5 inch(es), 65 inch(es)) Actual Weight : 120 kg(Converted to: 264 lb 9 oz) Weight Source : Standing scale Dosing Weight Clinic : 120 kg Clinic BSA : 2.34 Body Mass Index : 44.62 kg/m2 WALDO BURNETT 02/17/2015 15:14 CDT General Info Information Given By : Patient Languages : Greenlandic Is Patient Female and 13-50 no hysterectomy : Yes Status : Patient denies Are you ? : No WALDO BURNETT 02/17/2015 15:14 CDT Subjective Pain Symptoms : Yes WALDO BURNETT 02/17/2015 15:14 CDT Pain Scale Pain Scale Verbal 0-10 : Open WALDO BURNETT 02/17/2015 15:14 CDT Pain Pain Assessment Grid Pain 1 Location : Other: chest, head, throat discomfort from coughing WALDO BURNETT 02/17/2015 15:14 CDT Dependent Habits Tobacco Use/Currently Using : No Exposure to Tobacco Smoke : Other: never Smoking Status : Never smoker WALDO BURNETT 02/17/2015 15:14 CDT Tobacco Use Grid Other Tobacco Frequency : never WALDO BURNETT 02/17/2015 15:14 CDT Caffeine Use Grid Caffeine Use : Current Type : Soft drinks Frequency : Daily WALDO BURNETT 02/17/2015 15:14 CDT ID Screen Travel Within Last 21 Days : No Contact with someone with Ebola : No WALDO BURNETT 02/17/2015 15:14 CDT [facility] Document Id: [id number] CDT!47 documented in this encounter Plan of Treatment Upcoming Encounters Date Type Specialty Care Team Description 08/17/2022 Procedure visit Neurology Marina Winter M.D., M.P.H. [address] [phone] (Wo rk) Scheduled Procedures Name Priority Associated Diagnoses Date/Time LIFT THIGH Excessive And Redundant Skin And Subcutaneous Tissue documented as of this encounter Visit Diagnoses Not on filedocumented in this encounter Additional Health Concerns Assessment Noted Time PHQ-9 Depression Total Score: 6 02/15/2015 4:18 PM CDT documented as of this encounter
--- OUTSIDE RECORDS SUMMARY | 2022-07-24 15:17 | XMS_ITS | Encounter Summary ---
:1985 Author Organization [facility] Address [address] [place] [address] Care Team Providers Name Role Phone Unavailable Primary Care Provider Unavailable Encounter Details Date Type Department Care Team Description 09/15/2013 Hospital Encounter HX [facility] Grandalfred, Lizandro Olguin, P.A.-C., P.A. [address] [place], [place] [phone] (Wo rk) Social History [...] How often do you attend orthodoxy or islam Never 07/04/2019 services? 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 documented as of this encounter Last Filed Vital Signs Vital Sign Reading Time Taken Comments Blood Pressure 114/66 09/15/2013 4:03 PM INTERLOCKING INSTALLER Pulse 96 09/15/2013 4:03 PM INTERLOCKING INSTALLER Temperature - - Respiratory Rate 20 09/15/2013 4:03 PM INTERLOCKING INSTALLER Oxygen Saturation - - Inhaled Oxygen Concentration - - Weight 105 kg (231 lb 11.3 oz) 09/15/2013 4:03 PM INTERLOCKING INSTALLER Height - - Body Mass Index 38.6 07/23/2013 9:34 AM CDT documented in this encounter Progress Notes Ryne Minor P.A.-C., Karla - 09/15/2013 3:58 PM CST [id number] CHIEF COMPLAINT/REASON FOR VISIT Medication refill, discuss several other concerns. HISTORY OF PRESENT ILLNESS Maria Alejandra is a 28-year-old female who presents today with several concerns. First of all she does havea history of migraine headache and has had a 2-day history of headache that just has not been relieved with her usual fbhz-upi-gxuyrsi medications. She has found in the past that Naprosyn and Vistaril have been effective for her. She does need a refill of these. In addition we discussed injection of Toradol and she is interested in this today. She is light and sound sensitive. She has slight nausea but no vomiting. Symptoms are consistent with her previous migraine headaches. She has used Imitrex inthe past but really does not care for this due to adverse effects. She has noted that her hair has seemed to be thinning and she is concerned that she seems to be losing a lot of hair. She is about 5 months . She is not breast feeding. This is her third child and has noted that her hair seems to become thinner with each childbirth. She would like to have her thyroid checked. In addition she has noted an area of scaling, itching and rash on the crown of herhead. It waxes and wanes. It is quite irritating at this time. She has just recently changed to a new shampoo which does seem to be helping improve symptoms. She also would like a refill of her phentermine. She is aware that she has only lost a couple poundsover the past 2 months but is overall doing quite well on the phentermine and would like a refill ofthis. She is tolerating it without adverse effects. MEDICATIONS Venlafaxine XR 75 mg daily. Nexplanon. Vistaril 25 mg as needed migraine. Naprosyn 500 mg as needed. ALLERGIES No known drug allergies. SYSTEMS REVIEW A comprehensive 10-point review of systems is performed and is otherwise negative except as noted above. VITAL SIGNS Reviewed [facility] EMR dated 09/15/2013 and no changes. PHYSICAL EXAMINATION GENERAL: Pleasant female, alert and cooperative, obese, in no acute distress. SKIN: Warm and dry. Her hair is quite fine. She has no areas of alopecia or evidence of breakage. There is seborrhea on the crown of her head with some areas of erythema, scaling and irritation. Remaining skin is warm and dry without rashes. HEAD: Normocephalic, atraumatic. NEUROLOGIC: Cranial nerves II-XII grossly intact. No focal neurological findings. MENTAL: Mood and affect are appropriate. IMPRESSION/REPORT/PLAN 1. Scalp seborrhea dermatitis. PLAN: Selenium sulfide shampoo 2.25% to use 2 to 3 times weekly as directed. For acute itching and symptoms she was given triamcinolone 0.1% cream to apply topically once or twice daily as needed, no longer than a 2-week duration. Follow up as needed. 2. Reported hair loss. PLAN: I suspect this is just normal hair thinning and hormone changes associated with her pregnancies, but we will go ahead and check a TSH today. She will be notified of the results when available andfurther treatment as appropriate. She is quite bothered by her thinning hair and we did discuss the option of trying spironolactone and she would like to try this. She was given a prescription for spironolactone 50 mg. She will start 1/2 tablet daily for a week or so and then increase as tolerated up to 100 mg daily to monitor for orthostatic symptoms. She does state that she tends to be a bit sensitive to this anyway so we will start at low dose and monitor closely. We will followup in 3 months as needed. 3. Migraine headache. PLAN: Toradol 60 mg IM was administered in clinic. She did have some relief of her symptoms. I did renew Naprosyn 500 mg twice daily as needed. First dose should not be given within 6 to 8 hours of theToradol dose. Vistaril 25 mg 3 to 4 times daily as needed was also renewed. She will continue supportive measures and cares and otherwise followup if headache persists. 4. Obesity with diet counseling and management. PLAN: Phentermine 37.5 mg, 1-month supply, no refills given. Continue with healthy lifestyle, increase physical exercise and activity. She recently got a treadmill and so plans to work out on this. Kalenll return on a monthly basis to have nurse recheck blood pressure and weight. She is aware of the potential risks and side effects of the phentermine and is aware that I will continue to provide written prescription refills on a monthly basis as long as blood pressure is stable and weight loss is achieved. Ryne Minor P.A.-C./[facility] Electronically Signed By: RYNE MINOR On: 09/16/2013 05:51 PM Source: [facility] MHSDOLBEYNONRADSYS Document Id: [id number] RLOCKING INSTALLER documented in this encounter Miscellaneous Notes Telephone Encounter - Joaquina Wiggins RCiera - 09/18/2013 1:58 PM CST pharmacy question Document Contains Addenda Addendum by MARTIN ESCOBAR on 19 September 2013 16:09 INTERLOCKING INSTALLER per ryne minor, patient can try selsum blue otc. Patient informed. Will call back if needed Modified by and Electronically Signed by: MARTIN ESCOBAR On: 09/19/2013 04:09 PM From: JOAQUINA WIGGINS (OW [facility]) Sent: 09/18/2013 13:58:23 INTERLOCKING INSTALLER Subject: pharmacy question Caller is: ( ) Patient ( ) Mother ( ) Father ( ) Spouse ( ) Daughter ( ) Son ( Rigo/Aimee ) Pharmacy ( ) Other: Physician: Soila Patient MRN #: Reason for Call: Message: S. Med question B. Pt was prescribed a shampoo. A. R. While speaking to the pharmacy, the person found the strength and did not need anything. Advice/Action: Source used: ( ) Verbalizes understanding [...] back cell phone number ( ) Source: [facility] sezmi Document Id: [id number] RLOCKING INSTALLER Miscellaneous - Ryne Minor PMichael.-C., P.A. - 09/16/2013 7:39 AM INTERLOCKING INSTALLER Results Notification Document Contains Addenda Addendum by MARTIN ESCOBAR on 17 September 2013 10:44:26 INTERLOCKING INSTALLER Patient informed Addendum by MARTIN ESCOBAR on 16 September 2013 09:17:34 INTERLOCKING INSTALLER unable to leave message From: RYNE MINOR To: JACEY Minor Nurse; Sent: 09/16/2013 07:39:27 INTERLOCKING INSTALLER ! 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 loosing alot of hair and feels as if she is balding.([facility]) Temperature Oral : 36.5 DegC(Converted to: 97.7 DegF) Peripheral Pulse Rate : 96 /min Respiratory Rate : 20 /min Heart Rhythm : Regular Systolic Blood Pressure : 114 mmHg Diastolic Blood Pressure : 66 mmHg NIBP Mean : 82 mmHg BP Location : Right upper extremity Blood Pressure Cuff Size : Large Actual Weight : 105.1 kg(Converted to: 231 lb 11 oz) Weight Source : Standing scale Dosing Weight Clinic : 105.1 kg ZORAN OLEARY - 09/15/2013 16:03 INTERLOCKING INSTALLER General Info Information Given By : Patient Preferred Communication Mode : Verbal Languages : Danish ZORAN OLEARY - 09/15/2013 16:03 INTERLOCKING INSTALLER Subjective Pain Symptoms : No ZORAN OLEARY [facility] 09/15/2013 16:03 INTERLOCKING INSTALLER Dependent Habits Tobacco Use/Currently Using : No Exposure to Tobacco Smoke : Other: never Smoking Status : Never smoker ZORAN OLEARY - 09/15/2013 16:03 INTERLOCKING INSTALLER Tobacco Use Grid Other Tobacco Frequency : never ZORAN OLEARY [facility] 09/15/2013 16:03 INTERLOCKING INSTALLER Caffeine Use Grid Caffeine Use : Current Type : Soft drinks Frequency : Daily ZORAN OLEARY - 09/15/2013 16:03 INTERLOCKING INSTALLER Source: [facility] POWERCHART Document Id: [id number] INTERLOCKING INSTALLER!33 documented in this encounter Plan of Treatment Upcoming Encounters Date Type Specialty Care Team Description 08/17/2022 Procedure visit Neurology Marina Winter M.D., M.P.H. [address] [phone] (Wo rk) Scheduled Procedures Name Priority Associated Diagnoses Date/Time LIFT THIGH Excessive And Redundant Skin And Subcutaneous Tissue documented as of this encounter Procedures Procedure Name Priority Date/Time Associated Diagnosis Comme nts THYROID-STIMULATING Routine 09/15/2013 5:07 PM Re sults for this HORMONE-SENSITIVE INTERLOCKING INSTALLER procedure are in (S-TSH) the results section. documented in this encounter Results Thyroid-Stimulating Hormone-Sensitive (s-TSH) (09/15/2013 5:07 PM INTERLOCKING INSTALLER) P athologist Signature TSH 1.66 0.30 - 5.00 POWERCHART (Thyrotropin) MIUL Specimen (Source) Anatomical Collection Method Collection Time Re ceived Time Location / / Volume Laterality Blood 09/15/2013 5:07 PM INTERLOCKING INSTALLER Ryne Minor P.A.-C., P.A. LAB BLOOD ADD-ON Performing Organization Address City/State/ZIP Code Phon e Number POWERCHART documented in this encounter Visit Diagnoses Not on filedocumented in this encounter Additional Health Concerns Assessment Noted Time PHQ-9 Depression Total Score: 5 07/09/2013 9:08 AM CDT documented as of this encounter
--- OUTSIDE RECORDS SUMMARY | 2022-07-24 15:17 | XMS_ITS | Encounter Summary ---
:1985 Author Organization [facility] Address [address] [place] [address] Care Team Providers Name Role Phone Unavailable Primary Care Provider Unavailable Encounter Details Date Type Department Care Team Description 06/11/2013 Hospital Encounter [facility]X [facility] Griselda Baird, ArnoldoA. [address] [place] [address] [place] [phone] (Wo rk) Social History Tobacco Use Types [...] How often do you attend bahai or gnosticist Never 07/04/2019 services? 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 documented as of this encounter Last Filed Vital Signs Vital Sign Reading Time Taken Comments Blood Pressure 128/76 06/11/2013 1:11 PM CDT Pulse 76 06/11/2013 1:11 PM CDT Temperature - - Respiratory Rate 12 06/11/2013 1:11 PM CDT Oxygen Saturation - - Inhaled Oxygen Concentration - - Weight 115 kg (253 lb 15.5 oz) 06/11/2013 1:11 PM CDT Height 162.5 cm (5' 3.98) 06/11/2013 1:11 PM CDT Body Mass Index 43.63 06/11/2013 1:11 PM CDT documented in this encounter Progress Notes Griselda Coleman Nadia - 06/11/2013 1:03 PM CDT [id number] CHIEF COMPLAINT / REASON FOR VISIT Discuss phentermine and medication for depression. HISTORY OF PRESENT ILLNESS Nancy Robins is a 28-year-old female who presents to the clinic today to discuss starting phentermine. She states that she just gave to her third child 1 month ago. She is not .She has had a Nexplanon placed for contraception. She states that her weight has been an issue sinceshe was very young. She states that 3 or 4 years ago she weighed 260 lbs, but then did lose some weight and dropped down to 225. She states that at her highest before this current , she weighed 280 lbs. She has now lost some weight and now weighs 254 lbs. She states that she has really been trying to eat a lot better. She is trying to work on her diet. She states that her significant other tends to ruiz a lot of their meals and she has asked him to do more baking, which he has been doing. She has also been trying to increase her fruit and vegetable intake. She is trying to stop drinking popcompletely. She states that she does not have any specific exercise regimen. She is a [id number], taking care of a total of 4 children. She states that she does delvin after them throughout the day, but she does not have any regimen where she will go out and do vigorous exercise. She states that she has no time or energy to do this. She has never had any issues with hypertension, with the exception of during her last when they thought she was preeclamptic. No thyroid problems, heart disease, glaucoma, or heart rhythm problems. She knows someone else who is on phentermine and has had a lot of good luck with this. She is specifically requesting to start phentermine. She also would like to discuss starting a medication for depression. She states that she has been treated for depression since she was in [address]. In [facility], she was started on Paxil. She was then on Celexa for many years, but over time this seemed to not be effective anymore, even at the highest dose. She has done some therapy in the past, and she is not sure she would like to restart that.She has been attending a [facility] in [place]. She states that she has been attending twice per week and she thinks that this has been extremely helpful. There is a group memberwho did give her some information about some different counseling options in the area, and patient states that she does have all of the information, she just needs to decide if she would like to do this. She states that her main factors seem to be being home taking care of 4 children on her own duringthe day, as well as paying bills. She states that her significant other has been pushing her to get a job and help with the bills, however Nancy is concerned who would be watching their children. Shestates that she has discussed with her significant other that if she were to get a job, this job would basically be paying for their daycare for the 4 children, and it would not be gaining a whole lot for them. Overall, she states that things are going well with her boyfriend. In the past, there apparently have been some infidelity issues, but she thinks that currently things are going really well between them. PHQ-9 score is a 10 today. She states that the highest category is feeling bad about herself more than half the days. She states that she tends to be very self-conscious and worries about what people think about her, especially with her weight. She reports several days in the past 2 weeks of thinking it would be better off if she were , however she has no thoughts of actually hurting herself or others. She does not feel that she is a threat to herself or others. CURRENT MEDICATIONS Reviewed per EMR on 06/11/2013. ALLERGIES No known allergies. VITAL SIGNS Weight is 115.2 kg. Body mass index is 43.63 kg/m2. TEMP: 36.9 C. PULSE: 76/min. RESPIRATORY RATE: 12/min. BLOOD PRESSURE: 128/76. PHYSICAL EXAMINATION GENERAL: Alert and oriented female. Well-developed, obese, and in no acute distress. SKIN: Intact, without visible rash, lesion, or ecchymoses. HEART: Regular rate and rhythm. Normal S1 and S2, without murmur. LUNGS: Clear to auscultation bilaterally. No wheezes or crackles. Normal respiratory effort. MENTAL: Appropriate mood and affect. Normal judgment and insight. Patient is very pleasant and has good eye contact. PHQ-9 score today is a 10. No suicidal ideation, but she does have some thoughts of being better off . She is adamant that she would never followthrough on any of these thoughts. IMPRESSION / REPORT / PLAN 1. Morbid obesity with desire for weight loss. 2. Moderate depression. PLAN: 1. Items reviewed today include healthy diet and exercise. We did discuss ways of incorporating smaller low calorie meals throughout the day and avoiding pop, fried foods, and high calorie foods. We did discuss a referral to medical nutrition therapy, and she is not interested at this time. I have also encouraged her to get at least 30 minutes of exercise most days per week. We discussed that this could be a good break for her, both mentally and physically, when her significant other is home in the evening to take some time for herself to get out and go for a 30 minute walk. She states that she will try to work on this. We discussed the common side effects and risks associated with phentermine andshe would like to proceed. Patient will start phentermine 37.5 mg 1 tab by mouth daily for the next 30 days. She will return to the clinic in 3-4 weeks for a clinic visit to see how things are going inregards to her phentermine use. As long as blood pressure is stable and she seems to be losing weight, I will refill this for another month at that time. 2. We discussed cognitive behavior therapy, and patient states that she will continue to think aboutthis. She has information as given to her by one of the support group members at [facility] in [place], and so she plans to make the call if she decides she would like to proceed. She states that she is not sure she is ready to get back into therapy again. We discussed different medication options. She states that she had done well on Celexa, but then she seemed to build up a sort of tolerance to it and her symptoms were no longer controlled, even at the max dose of the Celexa. She has alsoused Zoloft in the past and felt that that was ineffective for her. She had been started on Effexor in May 2012, but she states that she did not give this a fair chance as she did not take this on a regular basis and then she became in the fall, so she went off of this completely. She is interested in restarting the Effexor. She will start Effexor 37.5 mg 1 tab by mouth daily for 1 week, then increase to 2 tabs by mouth daily thereafter. I will see her back in 1 month for reevaluation of her depression symptoms and further medication adjustments can be made at that time. She is encouragedto follow up sooner at the clinic or the emergency department if she has any suicidal thoughts or ideation. She is comfortable with this plan. Griselda Coleman P.A.-C/reza Electronically Signed By: GRISELDA COLEMAN PA-C On: 08/24/2013 03:02 PM Source: [facility] MHSDOLBEYNONRADSYS Document Id: [id number] documented in this encounter Miscellaneous Notes Miscellaneous - Griselda Coleman - 06/11/2013 5:17 PM CDT Ambulatory Patient Summary [facility] [address] [place] [id number] Visit Information Name: NANCY ROBINS [facility] Number: [id number] Current Date: 06/11/2013 17:17:44 Physicians Attending Provider: GRISELDA COLEMAN PA-C Primary Care Provider: LEXII MINOR Your Medications Here is a list of your medications. It is important to take your medications as directed. Use a pillbox or chart to help remind you to take your medications. Please let your doctor or nurse know if you have problems taking your medications. Medication/Strength Dose Route Frequency Indications/Special Instructions/Comments/Notes phentermine (phentermine 37.5 mg oral tablet) 37.5 mg Oral once a day 1 hour before or 2 hours aftermeals venlafaxine (Effexor XR 37.5 mg oral capsule, extended release) See Instructions Take 1 cap PO Dailyfor 1 week, then increase to 2 caps PO Daily thereafter. (do not crush or chew) with food etonogestrel (Nexplanon 68 mg subcutaneous implant) 68 mg Subcutaneous once *nystatin topical (nystatin 100,000 units/g topical powder) 1 corey Topical three times a day *docusate (Colace 100 mg oral capsule) 100 mg Oral two times a day *ibuprofen (ibuprofen 600 mg oral tablet) 600 mg Oral three times a day Take with food * You have let us know that you are not taking this medication as listed. Please talk with your primary care provider or the health care provider who prescribed the medication as soon as possible. Attention: If you have any medications at [...] Upcoming Appointments Date Time Location Reason Provider 06/23/2013 13:30 [facility] COMMUNITY COORDINATOR post Eduardo RED, Bryson Joel Your Goals/Additional instructions: Source: [facility] POWERCHART Document Id: [id number] Miscellaneous - Griselda Coleman - 06/11/2013 5:17 PM CDT Ambulatory Depart Summary [facility] [address] [place] [address] [id number] Visit Information Name: NANCY ROBINS [facility] Number: [id number] Visit Date: 06/11/2013 17:17:44 Attending Provider: GRISELDA COLEMAN PA-C Primary Care Provider: LEXII MINOR NANCY ROBINS has been given the following list of medications: Your Medications It is important to take your medications as directed. Use a pill box or chart to help remind you to take your medications. Please let your doctor or nurse know if you have problems taking your medications. Medication/Strength Dose Route Frequency Indications/Special Instructions/Comments/Notes phentermine (phentermine 37.5 mg oral tablet) 37.5 mg Oral once a day 1 hour before or 2 hours aftermeals venlafaxine (Effexor XR 37.5 mg oral capsule, extended release) See Instructions Take 1 cap PO Dailyfor 1 week, then increase to 2 caps PO Daily thereafter. (do not crush or chew) with food etonogestrel (Nexplanon 68 mg subcutaneous implant) 68 mg Subcutaneous once *nystatin topical (nystatin 100,000 units/g topical powder) 1 corey Topical three times a day *docusate (Colace 100 mg oral capsule) 100 mg Oral two times a day *ibuprofen (ibuprofen 600 mg oral tablet) 600 mg Oral three times a day Take with food * You have let us know that you are not taking this medication as listed. Please talk with your primary care provider or the health care provider who prescribed the medication as soon as possible. Attention: If you have any medications at home that are not on this list, DO NOT take them until youcontact your provider for clarification. 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 Intake/History Entered On: 06/11/2013 13:16 CDT Performed On: 06/11/2013 13:11 CDT by LEXII BRICENO Intake Chief Complaint : discuss starting Phentermine/discuss starting new depression medication/updating PHQ-9 today/look at left side incision area Temperature Oral : 36.9 DegC(Converted to: 98.4 DegF) Peripheral Pulse Rate : 76 /min Respiratory Rate : 12 /min (LOW) Systolic Blood Pressure : 128 mmHg Diastolic Blood Pressure : 76 mmHg NIBP Mean : 93 mmHg BP Location : Right upper extremity Blood Pressure Cuff Size : Large Oxygen Therapy : Room air Height : 162.5 cm(Converted to: 5 ft 4 inch(es), 63.98 inch(es)) Actual Weight : 115.2 kg(Converted to: 254 lb 0 oz) Weight Source : Standing scale Dosing Weight Clinic : 115.2 kg Clinic BSA : 2.28 Body Mass Index : 43.63 kg/m2 LEXII BRICENO - 06/11/2013 13:11 CDT General Info Information Given By : Patient Preferred Communication Mode : Verbal Languages : Estonian LEXII BRICENO - 06/11/2013 13:11 CDT Subjective Pain Symptoms : No LEXII BRICENO 06/11/2013 13:11 CDT Dependent Habits Tobacco Use/Currently Using : No Exposure to Tobacco Smoke : Other: never Smoking Status : Never smoker LEXII BRICENO - 06/11/2013 13:11 CDT Tobacco Use Grid Other Tobacco Frequency : never LEXII BRICENO - 06/11/2013 13:11 CDT Alcohol Use : Yes LEXII BRICENO 06/11/2013 13:11 CDT Caffeine Use Grid Caffeine Use : Current Type : Soft drinks Frequency : Weekly Amount : 5-6 cans weekly LEXII BRICENO - 06/11/2013 13:11 CDT Source: [employer] Document Id: [id number] CDT!38 Miscellaneous - Conversion, Historical Provider Ser - 06/11/2013 1:11 PM CDT Health Assessment Health Assessment Entered On: 06/11/2013 13:17 CDT Performed On: 06/11/2013 13:11 CDT by LEXII BRICENO Health Assessment Complete Health Assessment Complete or Modified : Annual Health Assessment Annual Health Assessment Completed : Yes LEXII BRICENO - 06/11/2013 13:11 CDT Nutrition Nutrition Risk Factors by History Adult : None LEXII BRICENO - 06/11/2013 13:11 CDT Functional Current Daily Living Assistance : None LEXII BRICENO - 06/11/2013 13:11 CDT Dependent Habits Tobacco Use/Currently Using : No Exposure to Tobacco Smoke : Other: never Smoking Status : Never smoker KAITYCARLOSSANTOS Zuniga - 06/11/2013 13:11 CDT Tobacco Use Grid Other Tobacco Frequency : never KAITY LEXII Zuniga - 06/11/2013 13:11 CDT Caffeine Use Grid Caffeine Use : Current Type : Soft drinks Frequency : Daily KAITYCARLOSSANTOS Zuniga - 06/11/2013 13:11 CDT Psychosocial Domestic Abuse Concerns : None LEXII BRICEON - 06/11/2013 13:11 CDT Advance Directive Advanced Directives : No KAITY LEXII Zuniga - 06/11/2013 13:11 CDT Educ Needs Learning Style Preference Adult Grid Patient : Demonstration, Printed materials, Verbal explanation, Video/Educational TV Family : None LEXII BRICENO - 06/11/2013 13:11 CDT Source: [employer] Document Id: [id number] CDT!28 Miscellaneous - Conversion, Historical Provider Ser - 06/11/2013 8:18 AM CDT PHQ-9 PHQ-9 Entered On: 06/16/2013 8:18 CDT Performed On: 06/11/2013 8:18 CDT by LEXII BRICENO PHQ-9 Little interest or pleasure in doing things : Several days Feeling down, depressed, or hopeless : Several days Trouble falling or staying asleep, or sleeping too much : Several days Feeling tired or having little energy : Several days Poor appetite or overeating : Several days Feeling bad about yourself or that you are a failure : More than half the days Trouble concentrating on things : Several days Moving or speaking slowly; restless or fidgety : Several days Thoughts that you would be better off /hurting self : Several days PHQ-9 Calculated Score : 10 Problems make work, home, or dealing with others : Very difficult LEXII BRICENO - 06/16/2013 8:18 CDT Source: [employer] Document Id: [id number] CDT!13 documented in this encounter Plan of Treatment Upcoming Encounters Date Type Specialty Care Team Description 08/17/2022 Procedure visit Neurology Marina Winter M.D., M.P.H. [address] [phone] (Wo rk) Scheduled Procedures Name Priority Associated Diagnoses Date/Time LIFT THIGH Excessive And Redundant Skin And Subcutaneous Tissue documented as of this encounter Visit Diagnoses Not on filedocumented in this encounter Additional Health Concerns Assessment Noted Time PHQ-9 Depression Total Score: 10 06/11/2013 8:18 AM CD T documented as of this encounter
--- OUTSIDE RECORDS SUMMARY | 2022-07-24 15:17 | XMS_ITS | Encounter Summary ---
:1985 Author Organization [facility] Address [address] [place] [address] Care Team Providers Name Role Phone Unavailable Primary Care Provider Unavailable Encounter Details Date Type Department Care Team Description 08/06/2013 Hospital Encounter HX [facility] Grandalfred, Lizandro Olguin, P.A.-C., P.A. [address], [place] [phone] (Wo rk) Social History [...] How often do you attend worship or tenriism Never 07/04/2019 services? 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 - 08/06/2013 11:11 AM CDT [id number] CHIEF COMPLAINT/REASON FOR VISIT Refill phentermine, medication recheck. HISTORY OF PRESENT ILLNESS Maria Alejandra is a pleasant 28-year-old female who is about 3 months . She has struggled with weight much of her life. She has previously used phentermine prior to and had done very well with this. She would like to restart the phentermine. She is aware of the potential effects and stimulant risks. She has tolerated it without adverse effects. She also would like a refill of her venlafaxine 75 mg daily. She feels she is doing well at this dose and denies need for further increase. MEDICATIONS Effexor XR 75 mg daily. Nexplanon. ALLERGIES No known drug allergies. SYSTEMS REVIEW She denies any other complaints or concerns at this time. VITAL SIGNS Reviewed [facility] EMR dated 08/06/13 and no changes. PHYSICAL EXAMINATION GENERAL: Pleasant well-appearing female, overweight, in no acute distress. Alert and cooperative. Appropriate interaction with her son. Neatly groomed. Appropriately dressed. Mood and affect areappropriate. IMPRESSION / REPORT / PLAN 1. Anxiety and depression, controlled. Plan: Venlafaxine 75 mg daily. Renewed for 1 year. Follow up as needed. 2. Obesity with weight loss and counseling. Plan: Dietary counseling and management. He did refill phentermine 37.5 mg daily, 1 month supply, norefills. She will return on a monthly basis for nurse visit to have weight and blood pressure checked. She is aware of the potential risks of the medication and I will provide refills monthly as long as weight loss is achieved and blood pressure is stable. Continue healthy lifestyle. Lexii Minor P.A.-C./reza Electronically Signed By: LEXII MINOR On: 08/21/2013 07:08 AM Source: [facility] MHSDOLBEYNONRADSYS Document Id: [id number] documented in this encounter Miscellaneous Notes Miscellaneous - Lexii Minor P.A.-C., P.A. - 08/06/2013 12:00 PM CDT Work note From: LEXII MINOR Sent: 08/06/2013 11:59:59 CDT Subject: Work note Maria Alejandra was evaluated today in clinic. She has a history of anxiety/depression which is currently on medication. She is 3 months post- and has 3 other children ages 8yr, 5 yrs, and 30 months. She currently stays home with her 2 young children and is not currently employed. At this time I feel having her attend employment search class would not be in her best interest or the interest of her young children as she does not have other options at this time for daycare. This may change in the future. 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 refill Temperature Oral : 36.9 DegC(Converted to: 98.4 DegF) Peripheral Pulse Rate : 72 /min Respiratory Rate : 16 /min Heart Rhythm : Regular Systolic Blood Pressure : 124 mmHg Diastolic Blood Pressure : 84 mmHg NIBP Mean : 97 mmHg BP Location : Right upper extremity Blood Pressure Cuff Size : Regular Oxygen Therapy : Room air Actual Weight : 105.3 kg(Converted to: 232 lb 2 oz) Weight Source : Standing scale Dosing Weight Clinic : 105.3 kg MARCELA PEREYRA - 08/06/2013 11:23 CDT General Info Information Given By : Patient Preferred Communication Mode : Verbal Languages : Cameroonian MARCELA PEREYRA - 08/06/2013 11:23 CDT Subjective Pain Symptoms : No MARCELA PEREYRA - 08/06/2013 11:23 CDT Dependent Habits Tobacco Use/Currently Using : No Exposure to Tobacco Smoke : Other: never Smoking Status : Never smoker MARCELA PEREYRA - 08/06/2013 11:23 CDT Tobacco Use Grid Other Tobacco Frequency : never MARCELA PEREYRA - 08/06/2013 11:23 CDT Alcohol Use : Yes MARCELA PEREYRA - 08/06/2013 11:23 CDT Caffeine Use Grid Caffeine Use : Current Type : Soft drinks Frequency : Daily MARCELA PEREYRA - 08/06/2013 11:23 CDT Source: [employer] Document Id: [id number] CDT!35 documented in this encounter Plan of Treatment Upcoming Encounters Date Type Specialty Care Team Description 08/17/2022 Procedure visit Neurology Marina Winter M.D., M.P.H. [address] [phone] (Wo rk) Scheduled Procedures Name Priority Associated Diagnoses Date/Time LIFT THIGH Excessive And Redundant Skin And Subcutaneous Tissue documented as of this encounter Visit Diagnoses Not on filedocumented in this encounter Additional Health Concerns Assessment Noted Time PHQ-9 Depression Total Score: 5 07/09/2013 9:08 AM CDT documented as of this encounter
--- OUTSIDE RECORDS SUMMARY | 2022-07-24 15:17 | XMS_ITS | Encounter Summary ---
:1985 Author Organization [facility] Address [address] [place] [address] Care Team Providers Name Role Phone Unavailable Primary Care Provider Unavailable Encounter Details Date Type Department Care Team Description 06/23/2013 Hospital Encounter HX [facility] Bryson Escobar Jr., M.D. [address] [place], [place] [phone] (Wo rk) Social History [...] How often do you attend yarsanism or taoism Never 07/04/2019 services? 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 - 06/23/2013 1:14 PM CDT [id number] CHIEF COMPLAINT/REASON FOR VISIT: visit. HISTORY OF PRESENT ILLNESS: Nancy is a 28 year old female who presents to the clinic for a visit, status post section on 05/09/2013. She reports that she has had some sporadic break through bleeding following Nexplanon insertion. Her hemoglobin today is 12.7. Her bowel and bladder function are without issue. The patient denies any additional questions or complaints at this time. CURRENT MEDICATIONS: Phentermine, 37.5mg, p.o., daily. Effexor XR, 37.5mg, p.o., daily. Nexplanon, 68mg, subcutaneous units. ALLERGIES: No known allergies. VITAL SIGNS: WEIGHT: 109.8 kg PULSE: 66 /min BLOOD PRESSURE: 122 mmHg/70 mmHg SYSTEMS REVIEW: Please see HPI. PHYSICAL EXAM: GENERAL: Patient appears well groomed and well nourished. No acute distress. Oriented times three. ABDOMEN: Soft and nontender. No masses, hepatosplenomegaly or hernias noted. No enlarged groin nodespalpable. Well healing Pfannenstiel incision. PELVIS: Vagina and cervix appear normal without lesions, discharge or rashes. Uterus is midposition,small, mobile and nontender. Adnexa are without masses or tenderness. Nabothian cysts on the left side of her cervix, some menstrual blood is present. IMPRESSION/REPORT/PLAN: Normal postoperative examination. Plan: 1. Postoperative progress: The patient is tolerating the period well. 2. Break through bleeding: The patient was advised that break through bleeding is a common complaint following Nexplanon insertion. Her hemoglobin is within normal limits. 3. 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 This document serves as a record of services personally performed by Bryson Hoang MD. It was created on their behalf by Maldonado Nick, a trained behavioral medical director. The creation of this record is based on the scribe's personal observations and the provider's statements to them. This document has been checked and approved by the attending provider. Bryson Hoang M.D./jonh Electronically Signed By: BRYSON HOANG MD On: 06/23/2013 02:57 PM Source: [facility] MHSDOLBEYNONRADSYS Document Id: [id number] documented in this encounter Procedure Notes Nicki Vaz, R.N. - 06/23/2013 1:29 PM CDT Hemoglobin POC Hemoglobin POC Entered On: 06/23/2013 13:29 CDT Performed On: 06/23/2013 13:29 CDT by NICKI PAIGE Hemoglobin POC Hgb POC : 12.7 gm/dL Site : Finger NICKI PAIGE - 06/23/2013 13:29 CDT Source: [facility] [employer] Document Id: [id number] CDT!4 documented in this encounter Miscellaneous Notes Miscellaneous - Bryson Hoang Jr., M.D. - 06/23/2013 1:43 PM CDT Ambulatory Patient Summary [facility] [address] [place] [address] Visit Information Name: NANCY ROBINS [facility] Number: [id number] Current Date: 06/23/2013 13:43:34 Physicians Attending Provider: BRYSON HOANG MD Primary Care Provider: LEXII MINOR Your [...] No Appointments found Your Goals/Additional instructions: Source: [facility] POWERCHART Document Id: [id number] Miscellaneous - Bryson Hoang Jr., M.D. - 06/23/2013 1:43 PM CDT [place] [address] Visit Information Name: NANCY ROBINS [facility] Number: [id number] Visit Date: 06/23/2013 13:43:33 Attending Provider: BRYSON HOANG MD Primary Care Provider: LEXII MINOR NANCY [...] your provider for clarification. Additional Information: Source: [facility] [employer] Document Id: [id number] Miscellaneous - Nicki Vaz RRodrigoNRodrigo - 06/23/2013 1:21 PM CDT Adult Judicial Clerk Intake/History Adult Judicial Clerk Intake/History Entered On: 06/23/2013 13:23 CDT Performed On: 06/23/2013 13:21 CDT by NICKI PAIGE Intake Chief Complaint : post c/s 7/5 Peripheral Pulse Rate : 66 /min Systolic Blood Pressure : 122 mmHg Diastolic Blood Pressure : 70 mmHg NIBP Mean : 87 mmHg BP Location : Right upper extremity Blood Pressure Cuff Size : Large Actual Weight : 109.8 kg(Converted to: 242 lb 1 oz) Dosing Weight Clinic : 109.8 kg NICKI PAIGE - 06/23/2013 13:21 CDT General Info Languages : Chinese NICKI PAIGE - 06/23/2013 13:21 CDT Subjective Pain Symptoms : No NICKI PAIGE - 06/23/2013 13:21 CDT Dependent Habits Tobacco Use/Currently Using : No Exposure to Tobacco Smoke : Other: never Smoking Status : Never smoker NICKI PAIGE - 06/23/2013 13:21 CDT Tobacco Use Grid Other Tobacco Frequency : never NICKI PAIGE - 06/23/2013 13:21 CDT Caffeine Use Grid Caffeine Use : Current Type : Soft drinks Frequency : Daily NICKI PAIGE - 06/23/2013 13:21 CDT Source: [facility] [employer] Document Id: [id number] CDT!27 documented in this encounter Plan of Treatment Upcoming Encounters Date Type Specialty Care Team Description 08/17/2022 Procedure visit Neurology Marina Winter M.D., M.P.H. [address], [place] [phone] (Wo rk) Scheduled Procedures Name Priority Associated Diagnoses Date/Time LIFT THIGH Excessive And Redundant Skin And Subcutaneous Tissue documented as of this encounter Procedures Procedure Name Priority Date/Time Associated Comments Diagnosis HEMOGLOBIN (HGB), Routine 06/23/2013 1:29 PM Resu lts for this POCT, B CDT procedure are i n the results section. documented in this encounter Results Hemoglobin (HGB), POCT (06/23/2013 1:29 PM CDT) P athologist Signature Hemoglobin 12.7 [facility] POWERCHART Specimen (Source) Anatomical Collection Method Collection Time Re ceived Time Location / / Volume Laterality 06/23/2013 1:29 PM CDT Historical Provider LAB POCT ORDERABLES - DEVICE Performing Organization Address City/State/ZIP Code Phon e Number POWERCHART documented in this encounter Visit Diagnoses Not on filedocumented in this encounter Additional Health Concerns Assessment Noted Time PHQ-9 Depression Total Score: 10 06/11/2013 8:18 AM CD T documented as of this encounter
--- OUTSIDE RECORDS SUMMARY | 2022-07-24 15:17 | XMS_ITS | Encounter Summary ---
:1985 Author Organization [facility] Address [address] [place] [address] Care Team Providers Name Role Phone Unavailable Primary Care Provider Unavailable Encounter Details Date Type Department Care Team Description 12/22/2013 Hospital Encounter HX [facility] FAMILY[facility] Grandalfred, Lizandro Olguin, P.A.-C., P.A. 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 11/17/13 BP 126/80 Wt 105.6kg TODAY BP 122/74 Wt 106.6kg ANGEL BROWN - 12/22/2013 12:32 HAMMER DRIVER Vitals/Ht/Wt Systolic Blood Pressure : 122 mmHg Diastolic Blood Pressure : 74 mmHg NIBP Mean : 90 mmHg BP Location : Right upper extremity Blood Pressure Cuff Size : Regular Actual Weight : 106.6 kg(Converted to: 235 lb 0 oz) Dosing Weight Clinic : 106.6 kg ANGEL BROWN - 12/22/2013 12:32 HAMMER DRIVER [facility] [employer] [place] Document Id: [id number] HAMMER DRIVER!11 documented in this encounter Miscellaneous Notes Miscellaneous - Conversion, Historical Provider Ser - 12/22/2013 12:37 PM HAMMER DRIVER Phentermine Refill Document Contains Addenda Addendum by AJAY OG LPN on 23 December 2013 11:18:38 HAMMER DRIVER Pt. Notified Addendum by LEXII MINOR PA-C on 23 December 2013 07:54:59 HAMMER DRIVER From: LEXII MINOR PA-C To: JACEY Minor Nurse; Sent: 12/23/2013 07:54:59 HAMMER DRIVER Subject: FW: Phentermine Refill Please notify patient RX printed. CG Addendum by LEXII MINOR PA-C on 23 December 2013 07:54:31 HAMMER DRIVER Submitted: Order:phentermine (phentermine 37.5 mg oral tablet) 1 tab(s) PO Daily Qty: 30 tab(s) Duration: 30 day(s) Refills: 0 Substitutions Allowed Print - [id number] Signed by LEXII MINOR PA-C 12/23/2013 07:54:04 From: ANGEL BROWN (OW Plate Nurse) To: LEXII MINOR PA-C; Cc: JACEY Minor Nurse; Sent: 12/22/2013 12:37:02 HAMMER DRIVER Subject: Phentermine Refill Patient here for a phentermine 37.5mg refill. 11/17/13 BP 126/80 Wt 105.6kg TODAY BP 122/74 Wt 106.6kg She would like a refill sent to the info desk. Please call when it is ready to get picked up. She ishopeing to get it sunday. [facility] Document Id: [id number] documented in this encounter Plan of Treatment Upcoming Encounters Date Type Specialty Care Team Description 08/17/2022 Procedure visit Neurology Marina Winter M.D., M.P.H. [address] [place], [place] [phone] (Wo rk) Scheduled Procedures Name Priority Associated Diagnoses Date/Time LIFT THIGH Excessive And Redundant Skin And Subcutaneous Tissue documented as of this encounter Visit Diagnoses Not on filedocumented in this encounter Additional Health Concerns Assessment Noted Time PHQ-9 Depression Total Score: 5 07/09/2013 9:08 AM CDT documented as of this encounter
--- OUTSIDE RECORDS SUMMARY | 2022-07-24 15:18 | XMS_ITS | Encounter Summary ---
:1985 Author Organization [facility] Address [address] [place] [address] Care Team Providers Name Role Phone Unavailable Primary Care Provider Unavailable Encounter Details Date Type Department Care Team Description 04/23/2013 Hospital Encounter HX [facility] Kit Mims [...] How often do you attend taoist or roman catholic Never 07/04/2019 services? 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 - 04/23/2013 8:21 AM CDT [id number] CHIEF COMPLAINT / REASON FOR VISIT Routine OB visit HISTORY OF PRESENT ILLNESS This patient is a 28-year-old G4 P 2-0-1-2 female with LMP 08/13/2012. EDC 05/21/2013 at 36-0/7 weeks. Patient presents for OB visit. She is doing well. She was seen in labor and delivery on 04/20/2013 with elevated blood pressure and concern for preeclampsia. The patient was transferred to [facility]. She was observed overnight at [facility] and discharged home with normal bloodpressures. She had normal preeclamptic labs. Patient had 24, urine on 04/21/2013 that the patient reports as normal. The patient then represented to labor and delivery on the evening of 04/21/2013 complaining of lower extremity edema. She was found to have normal blood pressures. She had no signs or symp toms of preeclampsia and she was discharged home with reassuring assessment. Patient now presents for followup today. She reports good movement. She denies leaking of fluid, vaginal bleeding. No cramping or contractions. No headaches, vision changes. No shortness of breath or chest pain. No right upper quadrant pain. She reports edema in the lower extremities has resolved. She reports good movement. The patient has complicated by 2 prior sections. Gestational diabetes for which she is on ADA diet. She has history of genital herpes and reports no outbreak since 2010. She also hasa history of chronic pelvic pain, endometriosis, major depression and migraine headaches. ALLERGIES No known drug allergies. CURRENT MEDICATIONS Medications are vitamins. PAST MEDICAL/SURGICAL HISTORY 1. Endometriosis 2. Genital herpes last outbreak 2010 3. Obesity 4. Gestational diabetes 5. History of major depression 6. Migraine headaches. Past Surgical History 1. Laparoscopy 1999 2. Laparoscopy 2008 3. Tonsils and adenoids 1994 4. Cholecystectomy 2005 5. section 2004 6. section 12/16 Past Obstetrical History. 1. section , 38 weeks female infant 7 pounds 4 ounces for arrest of descent. 2. Gestational diabetes 3. Miscarriage 2006 4. section 2010, 36 weeks male infant 5 pounds 11 ounces active labor with HSV lesion and gestational diabetes. SOCIAL HISTORY Patient denies tobacco, alcohol or drug use. PHYSICAL EXAMINATION WEIGHT 124.2 kg. BLOOD PRESSURE: 116/60. PULSE 74. RESPIRATIONS 18. HEIGHT: 163.4 cm PHYSICAL EXAMINATION GENERAL: Well developed, well nourished gravid female in no apparent distress. Alert and oriented times 3. Normal affect. ABDOMEN: Gravid, soft and nontender. Fundal height is 37 cm. Positive heart tones 140. Unable to tell position by Tarik's. EXTREMITIES: Trace lower extremity edema, nontender. GENITAL exam declined by patient. LABS 04/11/2013 GBS culture negative. LABS 04/20/2013 preeclamptic labs normal. LABS 04/21/2013, 24 urine results are pending. Patient reports that she was contacted and told that were normal. PROCEDURE: An informal obstetrical ultrasound was performed revealing single intrauterine gestation in cephalic presentation. Amniotic fluid level is grossly normal. Placenta located posteriorly. No evidence of placenta previa. No gross anomalies visualized. IMPRESSION/REPORT/PLAN 1. Intrauterine at 36-0/7 weeks. Positive cardiac activity. 2. History 2 prior sections. 3. Gestational diabetes on ADA diet. 4. History of 36-week delivery 5. History of genital herpes patient reports she is asymptomatic. She declines examination today 6. History depression currently asymptomatic 7. History of migraine headaches, currently asymptomatic PLAN 1. The patient did not bring in her Accu-Cheks for my review today. I recommend she follow ADA diet and check Accu-Cheks as directed. Would like for her to bring it in for review at next visit. 2. Patient is scheduled for repeat section 05/12/[address] Clark 3. Routine OB precautions, recommendations and instructions are reviewed with the patient including movement and kick counts 4. Preeclampsia precautions are reviewed with patient 5. The patient's blood pressure is normal. She has trace lower extremity edema. Her preeclamptic labs on 04/20/2013 are normal. She had 24 urine on 04/21/2013 that is not available in the computer for my review but the patient reports that she was told that it was normal. We will contact [facility] to obtain this result 6. Follow up in [address] Clark as scheduled or be seen sooner p.r.n.. Kit Hathaway M.D./gia Electronically Signed By: KIT HATHAWAY MD On: 04/25/2013 11:35 AM Source[facility] Document Id: [id number] documented in this encounter Miscellaneous Notes Miscellaneous - Kit Hathaway M.D. - 04/23/2013 9:14 AM CDT [place] [address] Visit Information Name: NANCY ROBINS [facility] Number: [id number] Current Date: 04/23/2013 09:14:32 Physicians Attending Provider: KIT HATHAWAY MD Primary Care Provider: LEXII MINOR Your Medications Here is a list of your medications. It is important to take your medications as directed. Use a pillbox or chart to help remind you to take your medications. Please let your doctor or nurse know if you have problems taking your medications. Medication/Strength Dose Route Frequency Indications/Special Instructions/Comments Misc. Supply (Chely Plus Meter) See Instructions test 4x daily fasting and 1 hr after meals dx: 648.80 Misc. Supply (Chely test sttrips) See Instructions test 4x daily dx: 648.80 Misc. Supply (fast clix lancet) See Instructions test 4x daily dx: 648.80 Misc Prescription (Diabetic test strips) See Instructions Test blood sugar 4 times/day fasting and 1hour after each meal Misc. 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 - 04/23/2013 9:14 AM CDT [place] [address] Visit Information Name: NANCY ROBINS [facility] Number: [id number] Visit Date: 04/23/2013 09:14:31 Attending Provider: KIT HATHAWAY MD Primary Care Provider: LEXII MINOR NANCY ROBINS has been given the following list of medications: Your Medications It is important to take your medications as directed. Use a pill box or chart to help remind you to take your medications. Please let your doctor or nurse know if you have problems taking your medications. Medication/Strength Dose Route Frequency Indications/Special Instructions/Comments Misc. Supply (Chely Plus Meter) See Instructions test 4x daily fasting and 1 hr after meals dx: 648.80 Misc. Supply (Chely test sttrips) See Instructions test 4x daily dx: 648.80 Misc. Supply (fast clix lancet) See Instructions test 4x daily dx: 648.80 Misc Prescription (Diabetic test strips) See Instructions Test blood sugar 4 times/day fasting and 1hour after each meal Misc. Supply (AccucheckLancets) See Instructions Test bloold sugar 4x/day multivitamin, ( Multivitamins oral tablet) 1 tab(s) Oral once a day Attention: If you have any medications at home that are not on this list, DO NOT take them until youcontact your provider for clarification. Additional Information: Source: [facility] [employer] Document Id: [id number] Miscellaneous - Alexandra العلي LRodrigoP.N. - 04/23/2013 8:25 AM CDT Adult Application Security Specialist Intake/History Adult Application Security Specialist Intake/History Entered On: 04/23/2013 8:27 CDT Performed On: 04/23/2013 8:25 CDT by ALEXANDRA العلي Intake Chief Complaint : OB visit 36 weeks Systolic Blood Pressure : 116 mmHg Diastolic Blood Pressure : 60 mmHg NIBP Mean : 79 mmHg BP Location : Right upper extremity Blood Pressure Cuff Size : Large Actual Weight : 124.2 kg(Converted to: 273 lb 13 oz) Weight Source : Standing scale Dosing Weight Clinic : 124.2 kg ALEXANDRA العلي - 04/23/2013 8:25 CDT General Info Languages : Danish ALEXANDRA العلي - 04/23/2013 8:25 CDT Subjective Pain Symptoms : No ALEXANDRA العلي - 04/23/2013 8:25 CDT Dependent Habits Tobacco Use/Currently Using : No Exposure to Tobacco Smoke : Other: never Smoking Status : Never smoker ALEXANDRA العلي - 04/23/2013 8:25 CDT Tobacco Use Grid Other Tobacco Frequency : never ALEXANDRA العلي - 04/23/2013 8:25 CDT Caffeine Use Grid Caffeine Use : Current Type : Soft drinks Frequency : Daily ALEXANDRA العلي - 04/23/2013 8:25 CDT [facility] Document Id: [id number] CDT!27 documented in this encounter Plan of Treatment Upcoming Encounters Date Type Specialty Care Team Description 08/17/2022 Procedure visit Neurology Marina Winter M.D., M.P.H. [address] [phone] (Wo rk) Scheduled Procedures Name Priority Associated Diagnoses Date/Time LIFT THIGH Excessive And Redundant Skin And Subcutaneous Tissue documented as of this encounter Visit Diagnoses Not on filedocumented in this encounter Additional Health Concerns Assessment Noted Time PHQ-9 Depression Total Score: 17 05/07/2012 1:10 PM CD T documented as of this encounter
--- OUTSIDE RECORDS SUMMARY | 2022-07-24 15:18 | XMS_ITS | Encounter Summary ---
:1985 Author Organization [facility] Address [address] [place] [address] Care Team Providers Name Role Phone Unavailable Primary Care Provider Unavailable Encounter Details Date Type Department Care Team Description 04/19/2013 Hospital Encounter HX NO MAPPING Sesar Callahan M.D. [address] [place] [address] (Wo rk) Social History Tobacco Use Types [...] How often do you attend pentecostal or scientology Never 07/04/2019 services? 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 [address] [place], [place] [phone] (Wo rk) Scheduled Procedures Name Priority Associated Diagnoses Date/Time LIFT THIGH Excessive And Redundant Skin And Subcutaneous Tissue documented as of this encounter Visit Diagnoses Not on filedocumented in this encounter Additional Health Concerns Assessment Noted Time PHQ-9 Depression Total Score: 17 05/07/2012 1:10 PM CD T documented as of this encounter
--- OUTSIDE RECORDS SUMMARY | 2022-07-24 15:18 | XMS_ITS | Encounter Summary ---
:1985 Author Organization [facility] Address [address] [place] [address] Care Team Providers Name Role Phone Unavailable Primary Care Provider Unavailable Encounter Details Date Type Department Care Team Description 02/26/2013 Hospital Encounter [facility]X [facility] Sulema Gómez M.D. Social History Tobacco Use Types Packs/Day [...] How often do you attend scientology or spiritism Never 07/04/2019 services? 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 - 02/26/2013 1:19 PM CDT [id number] CHIEF COMPLAINT / REASON FOR VISIT care. HISTORY OF PRESENT ILLNESS Shyann is a 27-year-old 4, para 2, previous who is scheduled for elective repeat on May 12. She comes today for a routine visit. She did not bring her blood sugars but she states she is concerned that she is higher than she should be. On further discussion she has had some blood sugar in the 90s. This morning she stated she was over 100. She cannot tell me what percentage of her blood sugars postprandial are above 130. I discussed with her the fact that since she is a scheduled we are not as concerned about the size of the baby but we are concerned about the possibility of hypoglycemia and the consequences of even including seizures if control is bad. So I have asked her to see the silver cleaner and an appointment is scheduled for that today and then I have told her that if she finds a particular meal that she is not meeting our goals 50% of the time, she is to call me or otherwise we will ask her to bring her blood sugar in 2 weeks at her next visit and I told her that we would start oral hypoglycemic therapy. The patient is comfortable with this anddid make an appointment with the silver cleaner. VITAL SIGNS BLOOD PRESSURE: 122/68. WEIGHT: 128.9 kilograms, this is a 1.1 kilogram decrease from her last visit. Fundal height 29 cm. The infant is vertex by Tarik maneuvers with heart tones appreciated inthe 150s in the right lower quadrant. IMPRESSION / REPORT / PLAN 1. Intrauterine . 2. Previous section. 3. Gestational diabetes. PLAN: As mentioned the patient will see the silver cleaner. Strict control is stressed and the patient isto call if she is not meeting the goals so that we can determine whether we should proceed with oralhypoglycemic therapy. Sulema Call M.D./bertha cc: Labor and Delivery Electronically Signed By: SULEMA CALL MD On: 02/27/2013 12:41 PM Source: [facility] MHSDOLBEYNONRADSYS Document Id: [id number] documented in this encounter Miscellaneous Notes Miscellaneous - Sulema Call M.D. - 02/26/2013 1:47 PM CDT Ambulatory Patient Summary [facility] [address] [place] [address] Visit Information Name: NANCY ROBINS [facility] Number: [id number] Current Date: 02/26/2013 13:47:07 Physicians Attending Provider: SULEMA CALL MD Primary Care Provider: LEXII MINOR Your Medications Here is a list of your medications. It is important to take your medications as directed. Use a pillbox or chart to help remind you to take your medications. Please let your doctor or nurse know if you have problems taking your medications. Medication/Strength Dose Route Frequency Indications/Special Instructions/Comments Misc. Supply (fast clix lancet) See Instructions test 4x daily Misc. Supply (contour test strips) See Instructions test 4x daily Misc. Supply (contour machine) See Instructions test 4x daily fasting and 1 hr after meals Misc Prescription (Diabetic test strips) See Instructions [...] Peritoneum Active 07/25/2004 Migraine headache Active 08/23/2010 Gestational diabetes Active 08/02/2010 02/20/11 LMP 05/01/10, EDC 03/07/2011; 02/20/11 s/p repeat section 02/19/2011 Tattoo Active Previous Section, Antepartum Condition or Complication Active 05/01/2010 02/20/11 s/p repeat section 02/19/2011 LMP 05/01/10, EDC 03/07/2011 Genital herpes Active 02/19/2011 04/18/11 recurrent genital HSV Major Depressive Disorder, Recurrent Episode, Unspecified Degree Active 02/27/2011 02/27/11 depression, recurrent. Relationship problems Active 09/10/2012 Personal History of Gestational Diabetes Active 01/29/2013 Your Upcoming Appointments Date Time Location Reason Provider 03/12/2013 14:00 [facility] 2 wk ob check Sulema Call MD 03/26/2013 14:30 [facility] 2 wk ob check Sulema Call MD Your Goals/Additional instructions: Source: [facility] POWERCHART Document Id: [id number] Miscellaneous - Sulema Call M.D. - 02/26/2013 1:47 PM CDT Ambulatory Depart Summary [facility] [address] [place] [id number] Visit Information Name: NANCY ROBINS [facility] Number: [id number] Visit Date: 02/26/2013 13:47:07 Attending Provider: SULEMA CALL MD Primary Care Provider: LEXII MINOR NANCY ROBINS has been given the following list of medications: Your Medications It is important to take your medications as directed. Use a pill box or chart to help remind you to take your medications. Please let your doctor or nurse know if you have problems taking your medications. Medication/Strength Dose Route Frequency Indications/Special Instructions/Comments Misc. Supply (fast clix lancet) See Instructions test 4x daily Misc. Supply (contour test strips) See Instructions test 4x daily Misc. Supply (contour machine) See Instructions test 4x daily fasting and 1 hr after meals Misc Prescription (Diabetic test strips) See Instructions [...] your provider for clarification. 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 Intake/History Entered On: 02/26/2013 13:33 CDT Performed On: 02/26/2013 13:30 CDT by JOSE CARLOS MIKE Intake Chief Complaint : OB See ACOG LMP Date : 08/13/2012 Ambulatory Intake Additional Information : 28 2/7 week gestation Systolic Blood Pressure : 122 mmHg Diastolic Blood Pressure : 68 mmHg NIBP Mean : 86 mmHg BP Location : Left upper extremity Blood Pressure Cuff Size : Large Actual Weight : 128.9 kg(Converted to: 284 lb 3 oz) Dosing Weight Clinic : 128.9 kg JOSE CARLOS MIKE - 02/26/2013 13:30 CDT General Info Information Given By : Patient Languages : Armenian JOSE CARLOS MIKE - 02/26/2013 13:30 CDT Subjective Pain Symptoms : No JOSE CARLOS MIKE - 02/26/2013 13:30 CDT Dependent Habits Tobacco Use/Currently Using : No Exposure to Tobacco Smoke : Other: never Smoking Status : Never smoker JOSE CARLOS MIKE - 02/26/2013 13:30 CDT Tobacco Use Grid Other Tobacco Frequency : never JOSE CARLOS MIKE - 02/26/2013 13:30 CDT Caffeine Use Grid Caffeine Use : Current Type : Soft drinks Frequency : Daily JOSE CARLOS MIKE - 02/26/2013 13:30 CDT Source: [facility] [employer] Document Id: [id number] CDT!29 documented in this encounter Plan of Treatment Upcoming Encounters Date Type Specialty Care Team Description 08/17/2022 Procedure visit Neurology Marina Winter M.D., M.P.H. [address] [phone] (Wo rk) Scheduled Procedures Name Priority Associated Diagnoses Date/Time LIFT THIGH Excessive And Redundant Skin And Subcutaneous Tissue documented as of this encounter Visit Diagnoses Not on filedocumented in this encounter Additional Health Concerns Assessment Noted Time PHQ-9 Depression Total Score: 17 05/07/2012 1:10 PM CD T documented as of this encounter
--- OUTSIDE RECORDS SUMMARY | 2022-07-24 15:18 | XMS_ITS | Encounter Summary ---
:1985 Author Organization [facility] Address [address] [place] [address] Care Team Providers Name Role Phone Unavailable Primary Care Provider Unavailable Encounter Details Date Type Department Care Team Description 03/28/2013 Hospital Encounter HX [facility] Yves Escobar Jr., M.D. [address] [place], [place] [phone] (Wo rk) Social History [...] How often do you attend congregational or lutheran Never 07/04/2019 services? 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 - 03/28/2013 2:46 PM CDT [id number] CHIEF COMPLAINT/REASON FOR VISIT: Transfer of care, desires a repeat section. HISTORY OF PRESENT ILLNESS: Nancy is a 28 year old female, 4, para 2-0-1-2, section x2, at 32 weeks and 4 days today consistent who 5 week ultrasound on 09/21/12 who presents to the clinic today for a transfer of care. EDC 05/21/13. She was using contraception when she became . She is interested in having an Implanon placed post delivery. She bottle feeds. She recently moved to [place]. She has been testing her blood sugars, fasting 90-100, her after eating blood sugars have been 135 at the highest. movement has been good and she reports that she was counseled on movement counts in [place]. She had her first section for arrest of delivery. The patient denies any additional questions or complaints at this time. CURRENT MEDICATIONS: Chely plus meter. Chely test strips. Fast clicks lancet. Diabetic test strips. Accuchecklancets. multivitamin. Amoxicillin. ALLERGIES: No known allergies PAST MEDICAL/SURGICAL HISTORY: MEDICAL HISTORY Endometriosis Genital herpes Gestational diabetes History of miscarriage Major depressive disorder Migraine headache Gestational diabetes SURGICAL HISTORY without complication, 11/30/2006. section, 02/19/2011. section, 07/02/2008. Cholecystectomy, 11/29/2005. Laparoscopy, 1999. Laparotomy, peritoneal adhesion divided, 2008 Tonsillectomy and adenoidectomy, 1994. VITAL SIGNS: WEIGHT: 126.5 kg BLOOD PRESSURE: 110 mmHg/62 mmHg SYSTEMS REVIEW: See HPI. PHYSICAL EXAM: GENERAL: Patient appears well groomed and well nourished. No acute distress. Oriented times three. ABDOMEN: Gravid, nontender, large body habitus. Fundal height: 35cm. heart tones: 133bpm. Fetus is likely transverse. LOWER EXTREMITIES: Trace edema, nontender IMPRESSION/REPORT/PLAN: Normal examination. Plan: 1. care: Continue with routine care. 2. History of gestational diabetes: CBC and Hgb A1C were ordered today. The patient is encouraged to continue testing her blood sugars. 3. Follow up: The patient will return to the clinic in 2 weeks and will contact the clinic with anyOB/MACHINE SETTER AUTOMATIC related questions and concerns prior to this time. This document serves as a record of services personally performed by Yves Hoang MD. It was created on their behalf by Maldonado Nick, a trained medical assistant per diem. The creation of this record is based on the scribe's personal observations and the provider's statements to them. This document has been checked and approved by the attending provider. Yves Hoang M.D./jonh Electronically Signed By: YVES HOANG MD On: 03/28/2013 05:55 PM Source: [facility] MHSDOLBEYNONRADSYS Document Id: [id number] documented in this encounter Miscellaneous Notes Miscellaneous - Yves Hoang Jr., M.D. - 03/28/2013 3:36 PM CDT Ambulatory [place] [address] Visit Information Name: JOSEPHINE ROBINSSSMARIEL ORANTESE [facility] Number: [id number] Visit Date: 03/28/2013 15:36:55 Attending Provider: YVES HOANG MD Primary Care Provider: LEXII MINOR NANCY ROBINSE has been given the following [...] your provider for clarification. Additional Information: Source: [facility] POWERCHART Document Id: [id number] Miscellaneous - Yves Hoang Jr., M.D. - 03/28/2013 3:36 PM CDT Ambulatory [place] [address] Visit Information Name: NANCY ROBINS [facility] Number: [id number] Current Date: 03/28/2013 15:36:56 Physicians Attending Provider: YVES HOANG MD Primary Care Provider: LEXII MINOR [...] 05/01/10, EDC 03/07/2011 Genital herpes Active 02/19/2011 02/20/11 recurrent genital HSV Major Depressive Disorder, Recurrent Episode, Unspecified Degree Active 02/27/2011 02/27/11 depression, recurrent. 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 Finisher Card Tender Intake/History Adult Finisher Card Tender Intake/History Entered On: 03/28/2013 15:15 CDT Performed On: 03/28/2013 15:13 CDT by LISA PAIGE Intake Chief Complaint : OB visit 32 4/7 weeks Systolic Blood Pressure : 110 mmHg Diastolic Blood Pressure : 62 mmHg NIBP Mean : 78 mmHg BP Location : Left upper extremity Blood Pressure Cuff Size : Large Actual Weight : 126.5 kg(Converted to: 278 lb 14 oz) Dosing Weight Clinic : 126.5 kg LISA PAIGE - 03/28/2013 15:13 CDT General Info Languages : Albanian LISA PAIGE - 03/28/2013 15:13 CDT Subjective Pain Symptoms : No LISA PAIGE - 03/28/2013 15:13 CDT Dependent Habits Tobacco Use/Currently Using : No Exposure to Tobacco Smoke : Other: never Smoking Status : Never smoker LISA PAIGE - 03/28/2013 15:13 CDT Tobacco Use Grid Other Tobacco Frequency : never GRECIABEREKETSANTOS Regalado - 03/28/2013 15:13 CDT Caffeine Use Grid Caffeine Use : Current Type : Soft drinks Frequency : Daily LISA PAIGE - 03/28/2013 15:13 CDT Source: [facility] [employer] Document Id: [id number] CDT!26 documented in this encounter Plan of Treatment Upcoming Encounters Date Type Specialty Care Team Description 08/17/2022 Procedure visit Neurology Marina Winter M.D., M.P.H. [address] [phone] (Wo rk) Scheduled Procedures Name Priority Associated Diagnoses Date/Time LIFT THIGH Excessive And Redundant Skin And Subcutaneous Tissue documented as of this encounter Visit Diagnoses Not on filedocumented in this encounter Additional Health Concerns Assessment Noted Time PHQ-9 Depression Total Score: 17 05/07/2012 1:10 PM CD T documented as of this encounter
--- OUTSIDE RECORDS SUMMARY | 2022-07-24 15:18 | XMS_ITS | Encounter Summary ---
:1985 Author Organization [facility] Address [address] [place] [address] Care Team Providers Name Role Phone Unavailable Primary Care Provider Unavailable Encounter Details Date Type Department Care Team Description 03/12/2013 Hospital Encounter HX [facility] Sulema Gómez [...] 03/29/2020 relatives? How often do you attend latter day or jehovah's witness Never 07/04/2019 services? 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 - 03/12/2013 1:59 PM CDT [id number] CHIEF COMPLAINT / REASON FOR VISIT care. HISTORY OF PRESENT ILLNESS Nancy is now a 28-year-old 4, para 2, previous , scheduled for elective repeat on 05/12/2013. She does have a history of gestational diabetes and she has been following herblood sugars. She states her blood sugars fasting are now beginning between 90 and 100. Her postprandial blood sugars are all good. I told her that if we get consistently at or over 100, then we would want to start a p.m. dose of glyburide to help control her blood sugars. We discussed how important this is for the possibility of hypoglycemia because of the fact that she is not having a vaginal delivery, but a section. The patient will continue to monitor and work on her diet to hopefully control these sugars. 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 Fundal height is 31 cm. The infant is vertex by Tarik maneuvers. heart tones are appreciatedin the 130s. The patient is noting excellent movement. IMPRESSION / REPORT / PLAN 1. Intrauterine . 2. History of gestational diabetes with fair control. PLAN: Monitor diet more strictly. If she is consistently over 100 with fasting she is to call me so we can start therapy with an oral hypoglycemic agent. Sulema Call M.D./mikel cc: Labor and Delivery Electronically Signed By: SULEMA CALL MD On: 03/13/2013 10:51 AM Source: [facility] MHSDOLBEYNONRADSYS Document Id: [id number] documented in this encounter Miscellaneous Notes Miscellaneous - Sulema Call M.D. - 03/18/2013 8:14 AM CDT Results Notification Document Contains Addenda Addendum by JOSE CARLOS MIKE on 18 Mar 2013 10:26:13 CDT Pt notified of results. From: SULEMA CALL MD To: JACEY Call Nurse; Sent: 03/18/2013 08:14:42 CDT ! Show up: 03/18/2013 13:14:42 [facility] Subject: Results Notification Actions: Note to Nurse Reminder Comments: ACOG Results: Date Result Name Value Ref Range 03/12/2013 17:06 C trach Amp Src-Biloxi CERVIX 03/12/2013 17:06 C trach Amp RNA-Biloxi Negative (Negative - ) 03/12/2013 17:06 N gonor Amp DNA-Biloxi Negative (Negative - ) 03/12/2013 17:06 N gonor Amp Src-Biloxi CERVIX Source: [facility] POWERCHART Document Id: [id number] Miscellaneous - Sulema Call M.D. - 03/12/2013 2:53 PM CDT Ambulatory Patient Summary [facility] [address] [place] [id number] Visit Information Name: NANCY ROBINS [facility] Number: [id number] Current Date: 03/12/2013 14:53:23 Physicians Attending Provider: SULEMA CALL MD Primary Care Provider: LEXII MINOR Your Medications Here is a list of your medications. It is important to take your medications as directed. Use a pillbox or chart to help remind you to take your medications. Please let your doctor or nurse know if you have problems taking your medications. Medication/Strength Dose Route Frequency Indications/Special Instructions/Comments fluconazole (Diflucan 150 mg oral tablet) 150 mg Oral every 72 hours Misc. 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 - 03/12/2013 2:53 PM CDT Ambulatory Depart Summary [facility] [address] [place] [address] Visit Information Name: NANCY ROBINS [facility] Number: [id number] Visit Date: 03/12/2013 14:53:23 Attending Provider: SULEMA CALL MD Primary Care [...] medications. Medication/Strength Dose Route Frequency Indications/Special Instructions/Comments fluconazole (Diflucan 150 mg oral tablet) 150 mg Oral every 72 hours Misc. Supply (Chely Plus Meter) See Instructions [...] your provider for clarification. 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 Intake/History Adult Sink Cutter Intake/History Entered On: 03/12/2013 14:07 CDT Performed On: 03/12/2013 14:05 CDT by JIMENA HARTMANN Intake Chief Complaint : routine ob visit 30 2/7 weeks std check possible vaginal infection LMP Date : 08.13.2012 Systolic Blood Pressure : 112 mmHg Diastolic Blood Pressure : 64 mmHg NIBP Mean : 80 mmHg BP Location : Right upper extremity Blood Pressure Cuff Size : Regular Actual Weight : 129.8 kg(Converted to: 286 lb 3 oz) Weight Source : Standing scale Dosing Weight Clinic : 129.8 kg JIMENA HARTMANN - 03/12/2013 14:05 CDT General Info Information Given By : Patient Preferred Communication Mode : Verbal Languages : Zimbabwean JIMENA HARTMANN - 03/12/2013 14:05 CDT Subjective Pain Symptoms : No JIMENA HARTMANN - 03/12/2013 14:05 CDT Dependent Habits Tobacco Use/Currently Using : No Exposure to Tobacco Smoke : Other: never Smoking Status : Never smoker JIMENA HARTMANN Nadia - 03/12/2013 14:05 CDT Tobacco Use Grid Other Tobacco Frequency : never JIMENA HARTMANN Nadia - 03/12/2013 14:05 CDT Caffeine Use Grid Caffeine Use : Current Type : Soft drinks Frequency : Daily JIMENA HARTMANN Nadia - 03/12/2013 14:05 CDT [facility] Document Id: [id number] CDT!30 documented in this encounter Plan of Treatment Upcoming Encounters Date Type Specialty Care Team Description 08/17/2022 Procedure visit Neurology Marina Winter M.D., M.P.H. [address] [phone] (Wo rk) Scheduled Procedures Name Priority Associated Diagnoses Date/Time LIFT THIGH Excessive And Redundant Skin And Subcutaneous Tissue documented as of this encounter Procedures Procedure Name Priority Date/Time Associated Diagnosis Comme nts N GONOR AMP SRC Routine 03/12/2013 5:06 PM Result s for this CDT procedure are i n the results section. N GONOR AMP DNA Routine 03/12/2013 5:06 PM Result s for this CDT procedure are i n the results section. C TRACH AMP SRC Routine 03/12/2013 5:06 PM Result s for this CDT procedure are i n the results section. C TRACH AMP RNA Routine 03/12/2013 5:06 PM Result s for this CDT procedure are i n the results section. documented in this encounter Results HX-N gonor Amp DNA (03/12/2013 5:06 PM CDT) athologist Signature HXN gonor Amp Negative POWERCHART DNA-Biloxi Specimen (Source) Anatomical Collection Method Collection Time Re ceived Time Location / / Volume Laterality 03/12/2013 5:06 PM CDT Narrative POWERCHART - 03/13/2013 8:23 PM CDT Test Performed by: [address] [place] [address] Fugitive Detective: Federico anne III, M.D. Sulema Call M.D. LAB HISTORICAL ORDERS Performing Organization Address City/State/ZIP Code Phon e Number POWERCHART HX-N gonor Amp Src (03/12/2013 5:06 PM CDT) athologist Signature HXN gonor Amp CERVIX POWERCHART Src-Biloxi Specimen (Source) Anatomical Collection Method Collection Time Re ceived Time Location / / Volume Laterality 03/12/2013 5:06 PM CDT Sulema Call M.D. LAB HISTORICAL ORDERS Performing Organization Address City/State/ZIP Code Phon e Number POWERCHART HX-C trach Amp RNA (03/12/2013 5:06 PM CDT) [facility] gist Method Time Signature Chlamydia Negative POWERCHART trachomatis amplified RNA Specimen (Source) Anatomical Collection Method Collection Time Re ceived Time Location / / Volume Laterality 03/12/2013 5:06 PM CDT Sulema Call M.D. LAB HISTORICAL ORDERS Performing Organization Address City/State/ZIP Code Phon e Number POWERCHART HX-C trach Amp Src (03/12/2013 5:06 PM CDT) athologist Signature HXC trach Amp CERVIX [facility]OWER[facility] (Source) Anatomical Collection Method Collection Time Re ceived Time Location / / Volume Laterality 03/12/2013 5:06 PM CDT Sulema Call M.D. LAB HISTORICAL ORDERS Performing Organization Address City/State/ZIP Code Phon e Number POWERCHART documented in this encounter Visit Diagnoses Not on filedocumented in this encounter Additional Health Concerns Assessment Noted Time PHQ-9 Depression Total Score: 17 05/07/2012 1:10 PM CD T documented as of this encounter
--- OUTSIDE RECORDS SUMMARY | 2022-07-24 15:18 | XMS_ITS | Encounter Summary ---
:1985 Author Organization [facility] Address [address] [place] [address] Care Team Providers Name Role Phone Unavailable Primary Care Provider Unavailable Encounter Details Date Type Department Care Team Description 04/30/2013 Hospital Encounter HX [facility] Bryson Escobar Jr., M.D. [address] [place], [place] [phone] (Wo rk) Social History [...] 03/29/2020 relatives? How often do you attend christian or druze Never 07/04/2019 services? 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 - 04/30/2013 1:53 PM CDT [id number] CHIEF COMPLAINT/REASON FOR VISIT: OB visit. HISTORY OF PRESENT ILLNESS: Nancy is a 28 year old female, 4, para 2-0-1-2, section x2, at 37 weeks and 2 days today consistent who 5 week ultrasound on 09/21/12 who presents to the clinic today OB visit. EDC 05/21/13. Her A1C was 5.2 and Hgb was 12.6 on 03/28. Her home tested blood sugars have not been recordedsince her last visit. She reports good movement. She continues to have some cramping. She denies any vaginal bleeding or leakage of fluid. She has a history of labor at approximately 36 weeks. The patient denies any additional questions or complaints at this time. CURRENT MEDICATIONS: Chely plus meter. Chely test strips. Fast clicks lancet. Diabetic test strips. Accuchecklancets. multivitamin. ALLERGIES: No known allergies VITAL SIGNS: WEIGHT: 122.9 kg BLOOD PRESSURE: 102 mmHg/64 mmHg SYSTEMS REVIEW: See HPI. PHYSICAL EXAM: GENERAL: Patient appears well groomed and well nourished. No acute distress. Oriented times three. ABDOMEN: Gravid, nontender, large body habitus. Fundal height: 40cm. heart tones: 136bpm. Fetus is likely vertex. PELVIS: Cervix is 1-2cm, long and high. LOWER EXTREMITIES: Trace edema, nontender IMPRESSION/REPORT/PLAN: Normal examination. Significant for history of 36 week delivery. Plan: 1. care: Continue with routine care. 2. Repeat section was scheduled for May 12. 3. Women[facility] Unit pre-admission packet was given today. 4. The patient was encouraged to test her blood sugars. 5. Follow up: The patient will return to the clinic in [address] Diaz and will contact the clinic with any OCCUPATIONAL HEALTH COORDINATOR related questions and concerns prior to this time. This document serves as a record of services personally performed by Bryson Hoang MD. It was created on their behalf by Maldonado Nick, a trained medical cash poster. The creation of this record is based on the scribe's personal observations and the provider's statements to them. This document has been checked and approved by the attending provider. Bryson Hoang M.D./jonh Electronically Signed By: BRYSON HOANG MD On: 04/30/2013 06:08 PM Source: [facility] MHSDOLBEYNONRADSYS Document Id: [id number] documented in this encounter Miscellaneous Notes Miscellaneous - Bryson Hoang Jr., M.D. - 04/30/2013 2:18 PM CDT [place] [address] Visit Information Name: NANCY ROBINS [facility] Number: [id number] Current Date: 04/30/2013 14:18:41 Physicians Attending Provider: BRYSON HOANG MD Primary Care Provider: LEXII MINOR Your Medications Here is a list of your medications. It is important to take your medications as directed. Use a pillbox or chart to help remind you to take your medications. Please let your doctor or nurse know if you have problems taking your medications. Medication/Strength Dose Route Frequency Indications/Special Instructions/Comments/Notes Misc. Supply (Chely Plus Meter) See Instructions [...] No Appointments found Your Goals/Additional instructions: Source: [facility] POWERCHART Document Id: [id number] Miscellaneous - Bryson Hoang Jr., M.D. - 04/30/2013 2:18 PM CDT [place] [address] Visit Information Name: NANCY ROBINS [facility] Number: [id number] Visit Date: 04/30/2013 14:18:40 Attending Provider: BRYSON HOANG MD Primary Care Provider: LEXII MINOR TAYE, NANCY ELIZABETH has been given the following list of medications: Your Medications It is important to take your medications as directed. Use a pill box or chart to help remind you to take your medications. Please let your doctor or nurse know if you have problems taking your medications. Medication/Strength Dose Route Frequency Indications/Special Instructions/Comments/Notes Misc. Supply (Chely Plus Meter) See Instructions [...] your provider for clarification. Additional Information: Source: [facility] HangIt Document Id: [id number] Miscellaneous - Nicki Vaz, R.N. - 04/30/2013 1:57 PM CDT Adult Wire Products Inspector Intake/History Adult Wire Products Inspector Intake/History Entered On: 04/30/2013 13:58 CDT Performed On: 04/30/2013 13:57 CDT by NICKI PAIGE Intake Chief Complaint : OB visit 37 2 Systolic Blood Pressure : 102 mmHg Diastolic Blood Pressure : 64 mmHg NIBP Mean : 77 mmHg BP Location : Left upper extremity Blood Pressure Cuff Size : Large Actual Weight : 122.9 kg(Converted to: 270 lb 15 oz) Dosing Weight Clinic : 122.9 kg NICKI PAIGE - 04/30/2013 13:57 CDT General Info Languages : Canadian NICKI PAIGE - 04/30/2013 13:57 CDT Subjective Pain Symptoms : No NICKI PAIGE - 04/30/2013 13:57 CDT Dependent Habits Tobacco Use/Currently Using : No Exposure to Tobacco Smoke : Other: never Smoking Status : Never smoker NICKI PAIGE - 04/30/2013 13:57 CDT Tobacco Use Grid Other Tobacco Frequency : never NICKI PAIGE - 04/30/2013 13:57 CDT Caffeine Use Grid Caffeine Use : Current Type : Soft drinks Frequency : Daily NICKI PAIGE - 04/30/2013 13:57 CDT Source: [facility] HangIt Document Id: [id number] CDT!26 documented in this encounter Plan of Treatment Upcoming Encounters Date Type Specialty Care Team Description 08/17/2022 Procedure visit Neurology Marina Winter M.D., M.P.H. [address] [phone] (Wo rk) Scheduled Procedures Name Priority Associated Diagnoses Date/Time LIFT THIGH Excessive And Redundant Skin And Subcutaneous Tissue documented as of this encounter Visit Diagnoses Not on filedocumented in this encounter Additional Health Concerns Assessment Noted Time PHQ-9 Depression Total Score: 17 05/07/2012 1:10 PM CD T documented as of this encounter
--- OUTSIDE RECORDS SUMMARY | 2022-07-24 15:18 | XMS_ITS | Encounter Summary ---
:1985 Author Organization [facility] Address [address] [place] [address] Care Team Providers Name Role Phone Unavailable Primary Care Provider Unavailable Encounter Details Date Type Department Care Team Description 11/06/2012 Hospital Encounter HX NO MAPPING Cheryl Mukherjee M.D. [address] [place], [place] [address] (Wo rk) Social History Tobacco Use Types [...] How often do you attend scientologist or church Never 07/04/2019 services? 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 [address], [place] [phone] (Wo rk) Scheduled Procedures Name Priority Associated Diagnoses Date/Time LIFT THIGH Excessive And Redundant Skin And Subcutaneous Tissue documented as of this encounter Visit Diagnoses Not on filedocumented in this encounter Additional Health Concerns Assessment Noted Time PHQ-9 Depression Total Score: 17 05/07/2012 1:10 PM CD T documented as of this encounter
--- OUTSIDE RECORDS SUMMARY | 2022-07-24 15:18 | XMS_ITS | Encounter Summary ---
:1985 Author Organization [facility] Address [address] [place] [address] Care Team Providers Name Role Phone Unavailable Primary Care Provider Unavailable Encounter Details Date Type Department Care Team Description 05/09/2013 Hospital Encounter HX NO MAPPING Sandeep Hathaway [...] How often do you attend presybeterian or adventism Never 07/04/2019 services? 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 [address] [phone] (Wo rk) Scheduled Procedures Name Priority Associated Diagnoses Date/Time LIFT THIGH Excessive And Redundant Skin And Subcutaneous Tissue documented as of this encounter Visit Diagnoses Not on filedocumented in this encounter Additional Health Concerns Assessment Noted Time PHQ-9 Depression Total Score: 17 05/07/2012 1:10 PM CD T documented as of this encounter
--- OUTSIDE RECORDS SUMMARY | 2022-07-24 15:18 | XMS_ITS | Encounter Summary ---
:1985 Author Organization [facility] Address [address] [place] [address] Care Team Providers Name Role Phone Unavailable Primary Care Provider Unavailable Encounter Details Date Type Department Care Team Description 12/27/2012 Hospital Encounter HX [facility] Jose Pressley Jr., M.D. [address] [place], [place] [phone] (Wo rk) Social History [...] How often do you attend christianity or mormonism Never 07/04/2019 services? 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 [address] [phone] (Wo rk) Scheduled Procedures Name Priority Associated Diagnoses Date/Time LIFT THIGH Excessive And Redundant Skin And Subcutaneous Tissue documented as of this encounter Visit Diagnoses Not on filedocumented in this encounter Additional Health Concerns Assessment Noted Time PHQ-9 Depression Total Score: 17 05/07/2012 1:10 PM CD T documented as of this encounter
--- OUTSIDE RECORDS SUMMARY | 2022-07-24 15:18 | XMS_ITS | Encounter Summary ---
:1985 Author Organization [facility] Address [address] [place] [address] Care Team Providers Name Role Phone Unavailable Primary Care Provider Unavailable Encounter Details Date Type Department Care Team Description 11/06/2012 Hospital Encounter HX NO MAPPING Checo Wright III, M.D. (Skip), M.P.H. [address] [place], [place] [address] (Wo rk) Social History Tobacco Use [...] 03/29/2020 relatives? How often do you attend mu-ism or mandaeism Never 07/04/2019 services? 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 [address] [place] [phone] (Wo rk) Scheduled Procedures Name Priority Associated Diagnoses Date/Time LIFT THIGH Excessive And Redundant Skin And Subcutaneous Tissue documented as of this encounter Visit Diagnoses Not on filedocumented in this encounter Additional Health Concerns Assessment Noted Time PHQ-9 Depression Total Score: 17 05/07/2012 1:10 PM CD T documented as of this encounter
--- OUTSIDE RECORDS SUMMARY | 2022-07-24 15:18 | XMS_ITS | Encounter Summary ---
:1985 Author Organization [facility] Address [address] [place] [address] Care Team Providers Name Role Phone Unavailable Primary Care Provider Unavailable Encounter Details Date Type Department Care Team Description 05/14/2013 Hospital Encounter HX [facility] Bryson Escobar Jr., M.D. [address] [place], [place] [phone] (Wo rk) Social History [...] How often do you attend yarsanism or samaritan Never 07/04/2019 services? 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 - 05/14/2013 4:07 PM CDT [id number] CHIEF COMPLAINT/REASON FOR VISIT Possible incision separation. HISTORY OF PRESENT ILLNESS Patient is status post repeat section on May 09 generally doing well. Had noticed a little bit of skin separation in the hospital. Steri-Strips have been placed and then she was discharged home 2 days ago and then today noticed some skin separation. No fever. No pain. No other issues. PHYSICAL EXAMINATION Vital signs weight 122.2 kg, temperature 36.8, pulse 72, blood pressure 100/64. ABDOMEN: Lower abdomen soft, nontender. Incision appears to be generally healing well but there are a couple of areas where the skin is uneven. The most prominent these is on the left side measuring about 1 cm. This has silver nitrate placed on it. Steri-Strips removed as they are not really helping much. She also has what seems to be consistent with mild yeast irritation in the skin area. IMPRESSION/REPORT/PLAN Patient with uneven healing but otherwise incision generally doing well on repeat section in a morbidly obese patient. PLAN: Will treat with Nystatin topical powder. Warning signs given to look for. Otherwise she will follow up as scheduled with Dr. Hathaway next week. Bryson Hoang M.D./hugo Electronically Signed By: BRYSON HOANG MD On: 05/16/2013 09:59 AM Source: [facility] MHSDOLBEYNONRADSYS Document Id: [id number] documented in this encounter Miscellaneous Notes Miscellaneous - Bryson Hoang Jr., M.D. - 05/14/2013 4:25 PM CDT Ambulatory [place] [address] Visit Information Name: NANCY ROBINS [facility] Number: [id number] Current Date: 05/14/2013 16:25:08 Physicians Attending Provider: BRYSON HOANG MD Primary Care Provider: LEXII MINOR Your Medications Here is a list of your medications. It is important to take your medications as directed. Use a pillbox or chart to help remind you to take your medications. Please let your doctor or nurse know if you have problems taking your medications. Medication/Strength Dose Route Frequency Indications/Special Instructions/Comments/Notes nystatin topical (nystatin 100,000 units/g topical powder) 1 corey Topical three times a day docusate (Colace 100 mg oral capsule) 100 mg Oral two times a day ibuprofen (ibuprofen 600 mg oral tablet) 600 mg Oral three times a day Take with food Attention: If you have any [...] Upcoming Appointments Date Time Location Reason Provider 05/30/2013 12:30 [facility] HARP MAKER post op Bryson Hoang MD 06/23/2013 13:30 [facility] HARP MAKER post Bryson Hoang MD Your Goals/Additional instructions: Source: [facility] POWERCHART Document Id: [id number] Miscellaneous - Bryson Hoang Jr., M.D. - 05/14/2013 4:25 PM CDT Ambulatory [place] [address] Visit Information Name: NANCY ROBINS [facility] Number: [id number] Visit Date: 05/14/2013 16:25:08 Attending Provider: BRYSON HOANG MD Primary Care Provider: LEXII MINOR NANCY ROBINS ELIZABETH has been given the following list of medications: Your Medications It is important to take your medications as directed. Use a pill box or chart to help remind you to take your medications. Please let your doctor or nurse know if you have problems taking your medications. Medication/Strength Dose Route Frequency Indications/Special Instructions/Comments/Notes nystatin topical (nystatin 100,000 units/g topical powder) 1 corey Topical three times a day docusate (Colace 100 mg oral capsule) 100 mg Oral two times a day ibuprofen (ibuprofen 600 mg oral tablet) 600 mg Oral three times a day Take with food Attention: If you have any medications at home that are not on this list, DO NOT take them until youcontact your provider for clarification. Additional Information: Source: [facility] POWERCHART Document Id: [id number] Miscellaneous - Nicki Vaz R.N. 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 Returns Supervisor Intake/History Entered On: 05/14/2013 16:12 CDT Performed On: 05/14/2013 16:11 CDT by NICKI PAIGE Intake Chief Complaint : po c/s 7/5 Temperature Core : 36.8 DegC(Converted to: 98.2 DegF) Peripheral Pulse Rate : 72 /min Systolic Blood Pressure : 100 mmHg Diastolic Blood Pressure : 64 mmHg NIBP Mean : 76 mmHg BP Location : Right upper extremity Blood Pressure Cuff Size : Large Actual Weight : 122.2 kg(Converted to: 269 lb 6 oz) Dosing Weight Clinic : 122.2 kg NICKI PAIGE - 05/14/2013 16:11 CDT General Info Languages : Togolese NICKI PAIGE - 05/14/2013 16:11 CDT Subjective Pain Symptoms : No NICKI PAIGE - 05/14/2013 16:11 CDT Dependent Habits Tobacco Use/Currently Using : No Exposure to Tobacco Smoke : Other: never Smoking Status : Never smoker NICKI PAIGE - 05/14/2013 16:11 CDT Tobacco Use Grid Other Tobacco Frequency : never NICKI PAIGE - 05/14/2013 16:11 CDT Caffeine Use Grid Caffeine Use : Current Type : Soft drinks Frequency : Daily NICKI PAIGE - 05/14/2013 16:11 CDT Source: [facility] Document Id: [id number] CDT!28 documented in this encounter Plan of Treatment Upcoming Encounters Date Type Specialty Care Team Description 08/17/2022 Procedure visit Neurology Marina Winter M.D., M.P.H. [address] [phone] (Wo rk) Scheduled Procedures Name Priority Associated Diagnoses Date/Time LIFT THIGH Excessive And Redundant Skin And Subcutaneous Tissue documented as of this encounter Visit Diagnoses Not on filedocumented in this encounter Additional Health Concerns Assessment Noted Time PHQ-9 Depression Total Score: 17 05/07/2012 1:10 PM CD T documented as of this encounter
--- OUTSIDE RECORDS SUMMARY | 2022-07-24 15:18 | XMS_ITS | Encounter Summary ---
:1985 Author Organization [facility] Address [address] [place] [address] Care Team Providers Name Role Phone Unavailable Primary Care Provider Unavailable Encounter Details Date Type Department Care Team Description 05/07/2013 Hospital Encounter HX [facility] Steve Dupont M.D. [address] [place] [address] (Wo rk) Social History Tobacco Use Types [...] 03/29/2020 relatives? How often do you attend jew or yazdanism Never 07/04/2019 services? 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 - 05/07/2013 9:01 AM CDT [id number] CHIEF COMPLAINT/REASON FOR VISIT OB check. HISTORY OF PRESENT ILLNESS She is doing well without complaint. Has been having some uterine contractions although the cervix has not changed, too long and soft. heart tones 142. Fundal height 41 consistent with dates. Shehas not been following her sugars at all. H & P is done dictated on hospital line. Will see her back as needed. Aidan Diaz M.D./hugo Electronically Signed By: AIDAN DIAZ MD On: 05/13/2013 07:25 AM Source: [facility] MHSDOLBEYNONRADSYS Document Id: [id number] documented in this encounter Miscellaneous Notes Miscellaneous - Aidan Diaz M.D. - 05/07/2013 9:38 AM CDT Ambulatory Patient Summary [facility] [address] [place] [address] Visit Information Name: NANCY ROBINS [facility] Number: [id number] Current Date: 05/07/2013 09:38:08 Physicians Attending Provider: AIDAN DIAZ MD Primary Care Provider: LEXII MINOR Your Medications Here is a list of your medications. It is important to take your medications as directed. Use a pillbox or chart to help remind you to take your medications. Please let your doctor or nurse know if you have problems taking your medications. Medication/Strength Dose Route Frequency Indications/Special Instructions/Comments/Notes No Medications found Attention: If you have any medications at [...] No Appointments found Your Goals/Additional instructions: Source: [facility] [employer] Document Id: [id number] Miscellaneous - Aidan Diaz M.D. - 05/07/2013 9:38 AM CDT [place] [address] Visit Information Name: NANCY ROBINS [facility] Number: [id number] Visit Date: 05/07/2013 09:38:07 Attending Provider: AIDAN DIZA MD Primary Care Provider: LEXII MINOR NANCY ROBINS has been given the following list of medications: Your Medications It is important to take your medications as directed. Use a pill box or chart to help remind you to take your medications. Please let your doctor or nurse know if you have problems taking your medications. Medication/Strength Dose Route Frequency Indications/Special Instructions/Comments/Notes No Medications found Attention: If you have any medications at home that are not on this list, DO NOT take them until youcontact your provider for clarification. Additional Information: Source: [facility] [employer] Document Id: [id number] Miscellaneous - Conversion, Historical Provider Ser - 05/07/2013 9:12 AM CDT Adult Manager Orange Intake/History Adult Manager Orange Intake/History Entered On: 05/07/2013 9:13 CDT Performed On: 05/07/2013 9:12 CDT by ABE MAYES LPN Intake Chief Complaint : OB check, adbominal, pressure, bloating Systolic Blood Pressure : 116 mmHg Diastolic Blood Pressure : 62 mmHg NIBP Mean : 80 mmHg BP Location : Right upper extremity Blood Pressure Cuff Size : Large Actual Weight : 123.1 kg(Converted to: 271 lb 6 oz) Weight Source : Standing scale Dosing Weight Clinic : 123.1 kg ABE MAYES LPN - 05/07/2013 9:12 CDT General Info Information Given By : Patient Languages : Taiwanese ABE MAYES LPN 05/07/2013 9:12 CDT Subjective Pain Symptoms : No ABE MAYES LPN - 05/07/2013 9:12 CDT Dependent Habits Tobacco Use/Currently Using : No Exposure to Tobacco Smoke : Other: never Smoking Status : Never smoker ABE MAYES LPN 05/07/2013 9:12 CDT Tobacco Use Grid Other Tobacco Frequency : never ABE MAYES LPN - 05/07/2013 9:12 CDT Alcohol Use : No AEB MAYES LPN 05/07/2013 9:12 CDT Caffeine Use Grid Caffeine Use : Current Type : Soft drinks Frequency : Daily ABE MAYES LPN 05/07/2013 9:12 CDT Source: [employer] Document Id: [id number] CDT!29 documented in this encounter Plan of Treatment Upcoming Encounters Date Type Specialty Care Team Description 08/17/2022 Procedure visit Neurology Marina Winter M.D., M.P.H. [address] [phone] (Wo rk) Scheduled Procedures Name Priority Associated Diagnoses Date/Time LIFT THIGH Excessive And Redundant Skin And Subcutaneous Tissue documented as of this encounter Visit Diagnoses Not on filedocumented in this encounter Additional Health Concerns Assessment Noted Time PHQ-9 Depression Total Score: 17 05/07/2012 1:10 PM CD T documented as of this encounter
--- OUTSIDE RECORDS SUMMARY | 2022-07-24 15:18 | XMS_ITS | Encounter Summary ---
:1985 Author Organization [facility] Address [address] [place] [address] Care Team Providers Name Role Phone Unavailable Primary Care Provider Unavailable Encounter Details Date Type Department Care Team Description 05/30/2013 Hospital Encounter HX [facility] Bryson Escobar Jr., M.D. [address] [place], [place] [phone] (Wo rk) Social History [...] often do you attend latter day or scientologist Never 07/04/2019 services? 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 - 05/30/2013 12:05 PM CDT [id number] CHIEF COMPLAINT/REASON FOR VISIT Patient in for postop and incision check. Still has a little bit of granulation tissue that is bothering her. Also in the left upper part of her incision there is a small, about 2-cm nodule, feels likejust a small cyst which is mobile, subcutaneous, does not feel like a hernia, it is nontender. Patient also is interested in contraception. She has gotten on control pills, but she did not remember to take them every day, as well as the NuvaRing. She had been on Depo-Provera, but had problems with weight gain. She has a history of endometriosis and is concerned about that. Right now she is doing well. She is interested in Nexplanon potentially. We have given her the information and had her sign the [employer] paperwork for that and she will get an appointment to get seen for this inthe near future. PHYSICAL EXAM Silver nitrate used to treat these 2 small granulation areas. They appear to be healing fine. IMPRESSION/REPORT/PLAN Stable. Incision doing well. I have discussed contraception at length with her and followup is arranged. Bryson Hoang M.D./glt Electronically Signed By: BRYSON HOANG MD On: 06/02/2013 05:27 PM Source: [facility] MHSDOLBEYNONRADSYS Document Id: [id number] documented in this encounter Miscellaneous Notes Miscellaneous - Bryson Hoang Jr., M.D. 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 - 05/30/2013 12:24 PM CDT [place] [address] Visit Information Name: NANCY ROBINS [facility] Number: [id number] Visit Date: 05/30/2013 12:24:19 Attending Provider: BRYSON HOANG MD Primary Care [...] your provider for clarification. Additional Information: Source: [facility] POWERCHART Document Id: [id number] Miscellaneous - Alexandra اعللي L.P.N. - 05/30/2013 12:18 PM CDT Adult Labor Relations Worker Intake/History Adult Labor Relations Worker Intake/History Entered On: 05/30/2013 12:19 CDT Performed On: 05/30/2013 12:18 CDT by ALEXANDRA العلي Intake Chief Complaint : post op- wants Nexplanon Peripheral Pulse Rate : 60 /min Respiratory Rate : 18 /min Heart Rhythm : Regular Systolic Blood Pressure : 124 mmHg Diastolic Blood Pressure : 82 mmHg NIBP Mean : 96 mmHg BP Location : Left upper extremity Blood Pressure Cuff Size : Large Actual Weight : 117.6 kg(Converted to: 259 lb 4 oz) Weight Source : Standing scale Dosing Weight Clinic : 117.6 kg ALEXANDRA العلي - 05/30/2013 12:18 CDT General Info Languages : German ALEXANDRA العلي - 05/30/2013 12:18 CDT Subjective Pain Symptoms : No ALEXANDRA العلي - 05/30/2013 12:18 CDT Dependent Habits Tobacco Use/Currently Using : No Exposure to Tobacco Smoke : Other: never Smoking Status : Never smoker ALEXANDRA العلي - 05/30/2013 12:18 CDT Tobacco Use Grid Other Tobacco Frequency : never ALEXANDRA العلي - 05/30/2013 12:18 CDT Caffeine Use Grid Caffeine Use : Current Type : Soft drinks Frequency : Daily ALEXANDRA العلي - 05/30/2013 12:18 CDT Source: [facility] [employer] Document Id: [id number] CDT!30 documented in this encounter Plan of Treatment Upcoming Encounters Date Type Specialty Care Team Description 08/17/2022 Procedure visit Neurology Marina Winter M.D., M.P.H. [address] [phone] (Wo rk) Scheduled Procedures Name Priority Associated Diagnoses Date/Time LIFT THIGH Excessive And Redundant Skin And Subcutaneous Tissue documented as of this encounter Visit Diagnoses Not on filedocumented in this encounter Additional Health Concerns Assessment Noted Time PHQ-9 Depression Total Score: 17 05/07/2012 1:10 PM CD T documented as of this encounter
--- OUTSIDE RECORDS SUMMARY | 2022-07-24 15:18 | XMS_ITS | Encounter Summary ---
:1985 Author Organization [facility] Address [address] [place] [address] Care Team Providers Name Role Phone Unavailable Primary Care Provider Unavailable Encounter Details Date Type Department Care Team Description 03/28/2013 Hospital Encounter HX [facility] Israel Hoang Jr., M.D. [address] [place], [place] [phone] (Wo rk) Social History [...] How often do you attend anglican or mu-ism Never 07/04/2019 services? 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 - 03/29/2013 2:14 PM CDT Results Notification Document Contains Addenda Addendum by LISA PAIGE on 01 Apr 2013 10:40:06 CDT Results added to chart. From: BRYSON HOANG MD To: LISA PAIGE; Sent: 03/29/2013 14:14:12 CDT ! Show up: 03/29/2013 19:14:12 [facility] Subject: Results Notification Actions: Notify patient of results Reminder Comments: normal Results: Date Result Name Ind Value Ref Range 03/28/2013 15:54 Hgb A1c 5.2 % A1C (4.0 - 6.0) 03/28/2013 15:54 Hgb 12.6 g/dL (12.0 - 15.5) 03/28/2013 15:54 Hct 36.9 % (34.9 - 44.5) 03/28/2013 15:54 WBC (H) 11.0 x10(9)/L (3.4 - 10.5) 03/28/2013 15:54 RBC 4.39 x10(12)/L (3.90 - 5.03) 03/28/2013 15:54 MCV 84.1 fL (82.0 - 98.0) 03/28/2013 15:54 RDW 14.2 % (11.9 - 15.5) 03/28/2013 15:54 Platelet 218 x10(9)/L (150 - 450) 03/28/2013 15:54 Neutro % (H) 73.0 % (34.0 - 71.1) 03/28/2013 15:54 Lymph % 19.9 % (19.3 - 51.7) 03/28/2013 15:54 Overton % 6.3 % (4.7 - 12.5) 03/28/2013 15:54 Eos % (L) 0.6 % (0.7 - 5.8) 03/28/2013 15:54 Baso % 0.2 % (0.1 - 1.2) 03/28/2013 15:54 Neutro Absolute (H) 8.06 10(9)/L (1.70 - 7.00) 03/28/2013 15:54 Lymph Absolute 2.19 x10(9)/L (0.90 - 2.90) 03/28/2013 15:54 Overton Absolute 0.69 x10(9)/L (0.30 - 0.90) 03/28/2013 15:54 Eos Absolute 0.07 x10(9)/L (0.05 - 0.50) 03/28/2013 15:54 Baso Absolute 0.02 x10(9)/L (0.00 - 0.30) 03/28/2013 15:54 Differential? Auto Source: [facility] POWERCHART Document Id: [id number] Electronically signed by Conversion, [facility] Section Leader And Machine Setter [id number] at 04/04/2017 1:00 PM CDT documented in this encounter Plan of Treatment Upcoming Encounters Date Type Specialty Care Team Description 08/17/2022 Procedure visit Neurology Marina Winter M.D., M.P.H. [address] [phone] (Wo rk) Scheduled Procedures Name Priority Associated Diagnoses Date/Time LIFT THIGH Excessive And Redundant Skin And Subcutaneous Tissue documented as of this encounter Procedures Procedure Name Priority Date/Time Associated Comments Diagnosis AUTOMATED Routine 03/28/2013 3:54 PM Results f or this DIFFERENTIAL, B CDT procedure ar e in the results section. CBC WITH Routine 03/28/2013 3:54 PM Results f or this DIFFERENTIAL, B CDT procedure ar e in the results section. HEMOGLOBIN A1C, B Routine 03/28/2013 3:54 PM Resu lts for this CDT procedure are i n the results section. documented in this encounter Results (ABNORMAL) Automated Differential (03/28/2013 3:54 PM CDT) [facility] gist Method Time Signature Neutro % 73.0 (H) 34.0 - POWERCHART 71.1 Lymphocytes % 19.9 19.3 - POWERCHART 51.7 HX Overton % 6.3 4.7 - 12.5 POWERCHART HX Eos % 0.6 (L) 0.7 - 5.8 POWERCHART HX Baso % 0.2 0.1 - 1.2 POWERCHART Absolute 8.06 (H) 1.70 - POWERCHART Neutrophils 7.00 109L Lymphocytes 2.19 0.90 - POWERCHART 2.90 X109L Monocytes 0.69 0.30 - POWERCHART 0.90 X109L Eosinophils 0.07 0.05 - POWERCHART 0.50 X109L Absolute 0.02 0.00 - POWERCHART Basophil 0.30 X109L Specimen Anatomical Collection Method Collection Time Receive d Time (Source) Location / / Volume Laterality Blood 03/28/2013 3:54 PM 3 3:54 CDT PM CDT Bryson Hoang Jr., M.D. LAB BLOOD ADD-ON Performing Organization Address City/[facility]/ZIP Code Phon e Number POWERCHART (ABNORMAL) CBC with Differential (03/28/2013 3:54 PM CDT) Patholo gist Method Time Signature Leukocytes 11.0 (H) 3.4 - 10.5 POWERCHART X109L Erythrocytes 4.39 3.90 - POWERCHART 5.03 [id number] Hemoglobin 12.6 12.0 - POWERCHART 15.5 GDL Hematocrit 36.9 34.9 - POWERCHART 44.5 MCV 84.1 82.0 - POWERCHART 98.0 FL Platelet Count 218 150 - 450 POWERCHART X109L HX RDW 14.2 11.9 - POWERCHART 15.5 HXDifferential? Auto POWERCHART Specimen (Source) Anatomical Collection Method Collection Time Re ceived Time Location / / Volume Laterality Blood 03/28/2013 3:54 PM CDT Bryson Hoang Jr., M.D. LAB BLOOD ADD-ON Performing Organization Address City/[facility] Code Phon e Number POWERCHART Hemoglobin A1c (03/28/2013 3:54 PM CDT) P athologist Signature Hemoglobin A1c, 5.2 4.0 - 6.0 POWERCHART B A1C Specimen (Source) Anatomical Collection Method Collection Time Re ceived Time Location / / Volume Laterality Blood 03/28/2013 3:54 PM CDT Bryson Hoang Jr., M.D. LAB BLOOD ADD-ON Performing Organization Address City/State/ZIP Code Phon e Number POWERCHART documented in this encounter Visit Diagnoses Not on filedocumented in this encounter Additional Health Concerns Assessment Noted Time PHQ-9 Depression Total Score: 17 05/07/2012 1:10 PM CD T documented as of this encounter
--- OUTSIDE RECORDS SUMMARY | 2022-07-24 15:18 | XMS_ITS | Encounter Summary ---
:1985 Author Organization [facility] Address [address] [place] [address] Care Team Providers Name Role Phone Unavailable Primary Care Provider Unavailable Encounter Details Date Type Department Care Team Description 04/11/2013 Hospital Encounter HX [facility] Bryson Escobar Jr., M.D. [address], [place] [phone] (Wo rk) Social History [...] How often do you attend rastafarian or church Never 07/04/2019 services? 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 - 04/11/2013 1:46 PM CDT [id number] CHIEF COMPLAINT/REASON FOR VISIT: OB visit. HISTORY OF PRESENT ILLNESS: Nancy is a 28 year old female, 4, para 2-0-1-2, section x2, at 34 weeks and 4 days today consistent who 5 week ultrasound on 09/21/12 who presents to the clinic today OB visit. EDC 05/21/13. Her A1C was 5.2 and Hgb was 12.6 on 03/28. She reports that she had a period of frequent, strong contractions yesterday, that are better today. Her home tested blood sugars she reports have been within normal limits. She has a history of labor at approximately 36 weeks. The patient denies any additional questions or complaints at this time. CURRENT MEDICATIONS: Chely plus meter. Chley test strips. Fast clicks lancet. Diabetic test strips. Accuchecklancets. multivitamin. ALLERGIES: No known allergies PAST MEDICAL/SURGICAL HISTORY MEDICAL HISTORY Endometriosis of pelvic peritoneum, 2003 Genital herpes, 2010 Gestational diabetes, 2009 Major depressive disorder. Migraine headache. SURGICAL HISTORY Laparoscopy, 1999 Tonsillectomy and adenoidectomy, 1994 Cholecystectomy, 2005. PHARMACY CLERK HISTORY Chlamydia with last . No history of other STDS. No history of PIDS. First delivery, section, at 38 weeks, female, WOODY, 7lbs 4 oz, 2006- miscarriage at 8 weeks, 2010- section delivery at 36 weeks, male, WOODY, 5lbs 13oz. SOCIAL HISTORY Limited caffeine use, doesn't smoke. Single. VITAL SIGNS: WEIGHT: 125.4 kg BLOOD PRESSURE: 118 mmHg/62 mmHg SYSTEMS REVIEW: See HPI. PHYSICAL EXAM: GENERAL: Patient appears well groomed and well nourished. No acute distress. Oriented times three. ABDOMEN: Gravid, nontender, large body habitus. Fundal height: 36cm. heart tones: 140bpm. Fetus is likely transverse. PELVIS: Group B strep test was performed today. Cervix is long and closed. LOWER EXTREMITIES: Trace edema, nontender IMPRESSION/REPORT/PLAN: Normal examination. Significant for history of 36 week delivery. Plan: 1. care: Continue with routine care. 2. Group B strep was performed today. 3. labor warnings given. 4. Contractions were discussed and the patient was encouraged to rest and drink fluids if her contractions are greater than twice an hour. 5. History of gestational diabetes: The patient is encouraged to continue testing her blood sugars. 6. Repeat section was scheduled today for May 12. 7. 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 This document serves as a record of services personally performed by Bryson Hoang MD. It was created on their behalf by Maldonado Nick, a trained medical billing supervisor. The creation of this record is based on the scribe's personal observations and the provider's statements to them. This document has been checked and approved by the attending provider. Bryson Hoang M.D./jonh Electronically Signed By: BRYSON HOANG MD On: 04/11/2013 04:25 PM Source: [facility] MHSDOLBEYNONRADSYS Document Id: [id number] documented in this encounter Miscellaneous Notes Miscellaneous - Bryson Hoang Jr., M.D. - 04/11/2013 2:08 PM CDT Ambulatory Patient Summary [facility] [address] [place] [address] Visit Information Name: NANCY ROBINS [facility] Number: [id number] Current Date: 04/11/2013 14:08:32 Physicians Attending Provider: BRYSON HOANG MD Primary [...] No Appointments found Your Goals/Additional instructions: Source: [facility] POWERCHART Document Id: [id number] Miscellaneous - Bryson Hoang Jr., M.D. - 04/11/2013 2:08 PM CDT [place] [address] Visit Information Name: NANCY ROBINS [facility] Number: [id number] Visit Date: 04/11/2013 14:08:32 Attending Provider: BRYSON HOANG MD Primary Care Provider: LEXII MINOR TAYENANCY has been given the following list of [...] your provider for clarification. Additional Information: Source: [facility] POWERCHART Document Id: [id number] Miscellaneous - Nicki Vaz, R.N. - 04/11/2013 1:53 PM CDT Adult Implementation Specialist Intake/History Adult Implementation Specialist Intake/History Entered On: 04/11/2013 13:53 CDT Performed On: 04/11/2013 13:53 CDT by NICKI PAIGE Intake Chief Complaint : OB visit 34 4/7 weeks Systolic Blood Pressure : 118 mmHg Diastolic Blood Pressure : 62 mmHg NIBP Mean : 81 mmHg BP Location : Left upper extremity Blood Pressure Cuff Size : Large Actual Weight : 125.4 kg(Converted to: 276 lb 7 oz) Dosing Weight Clinic : 125.4 kg NICKI PAIGE - 04/11/2013 13:53 CDT General Info Languages : Ukrainian NICKI PAIGE - 04/11/2013 13:53 CDT Subjective Pain Symptoms : No NICKI PAIGE - 04/11/2013 13:53 CDT Dependent Habits Tobacco Use/Currently Using : No Exposure to Tobacco Smoke : Other: never Smoking Status : Never smoker NICKI PAIGE - 04/11/2013 13:53 CDT Tobacco Use Grid Other Tobacco Frequency : never NICKI PAIGE - 04/11/2013 13:53 CDT Caffeine Use Grid Caffeine Use : Current Type : Soft drinks Frequency : Daily NICKI PAIGE - 04/11/2013 13:53 CDT Source: [facility] POWERCHART Document Id: [id number] documented in this encounter Plan of Treatment Upcoming Encounters Date Type Specialty Care Team Description 08/17/2022 Procedure visit Neurology Marina Winter M.D., M.P.H. [address] [phone] (Wo rk) Scheduled Procedures Name Priority Associated Diagnoses Date/Time LIFT THIGH Excessive And Redundant Skin And Subcutaneous Tissue documented as of this encounter Procedures Procedure Name Priority Date/Time Associated Diagnosis Comme nts GRP B STREP (S. Routine 04/11/2013 2:15 PM Result s for this AGALACTIAE) CULTURE CDT procedur e are in the results section. documented in this encounter Results Grp B Strep (S. Agalactiae) Culture (04/11/2013 2:15 PM CDT) [facility] Method Time Signature Grp B Strep POWERCHART (S. agalactiae) Culture HXFinal See POWERCHART scanned/paper report. Test performed at [facility]. Specimen (Source) Anatomical Collection Method Collection Time Re ceived Time Location / / Volume Laterality Vaginal/Rectum 04/11/2013 2:15 PM CDT Bryson Hoang Jr., M.D. LAB MICROBIOLOGY - GENERAL O RDERABLES Performing Organization Address City/State/ZIP Code Phon e Number POWERCHART documented in this encounter Visit Diagnoses Not on filedocumented in this encounter Additional Health Concerns Assessment Noted Time PHQ-9 Depression Total Score: 17 05/07/2012 1:10 PM CD T documented as of this encounter
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
--- OUTSIDE RECORDS SUMMARY | 2022-07-24 15:18 | XMS_ITS | Encounter Summary ---
:1985 Author Organization [facility] Address [address] [place] [address] Care Team Providers Name Role Phone Unavailable Primary Care Provider Unavailable Encounter Details Date Type Department Care Team Description 01/06/2013 Hospital Encounter HX NO MAPPING Checo Wright III, M.D. (Skip), M.P.H. [address] [place], [place] [address] (Wo rk) Social History Tobacco Use [...] How often do you attend gnosticism or mormon Never 07/04/2019 services? 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 [address] [place] [phone] (Wo rk) Scheduled Procedures Name Priority Associated Diagnoses Date/Time LIFT THIGH Excessive And Redundant Skin And Subcutaneous Tissue documented as of this encounter Visit Diagnoses Not on filedocumented in this encounter Additional Health Concerns Assessment Noted Time PHQ-9 Depression Total Score: 17 05/07/2012 1:10 PM CD T documented as of this encounter
--- OUTSIDE RECORDS SUMMARY | 2022-07-24 15:18 | XMS_ITS | Encounter Summary ---
:1985 Author Organization [facility] Address [address] [place] [address] Care Team Providers Name Role Phone Unavailable Primary Care Provider Unavailable Encounter Details Date Type Department Care Team Description 01/29/2013 Hospital Encounter HX [facility] Sulema Gómez [...] How often do you attend pentecostalism or buddhist Never 07/04/2019 services? 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 - 01/29/2013 1:22 PM CDT [id number] CHIEF COMPLAINT / REASON FOR VISIT care. HISTORY OF PRESENT ILLNESS Nancy is a 27-year-old 4, para 2, previous section with previous history of gestational diabetes, who is managing her diabetes by diet only. She is checking her blood sugars. I have asked her to increase her blood sugar checks to 4 times a day and repeated our goals of a fasting below 90 and a 1-hour below 130. We discussed the fact that if she cannot keep those goals we will be able to try an oral agent, and she should not fear starting on shots, but our hope is that since she now has done the diet with her previous we will hopefully be able to avoid any issues. She isnoting excellent movement and no symptoms of labor. VITAL SIGNS BLOOD PRESSURE: 120/68. WEIGHT: 130 kg, this is unchanged from a month ago and basically is 0.7 kg storage worker than her weight on November 20. PHYSICAL EXAMINATION Fundal height is 25 cm. The infant is vertex by Tarik maneuvers. heart tones are positive, and the patient is noting excellent movement. IMPRESSION / REPORT / PLAN 1. Intrauterine . 2. Previous history of gestational diabetes. PLAN: The patient is to check her blood sugars 4 times a day. She is to return in 1 month for her next visit, and then we will begin every 2 weeks. Sulema Call M.D./larry cc: Labor and Delivery Electronically Signed By: SULEMA CALL MD On: 02/03/2013 09:19 AM Source: [facility] MHSDOLBEYNONRADSYS Document Id: [id number] documented in this encounter Miscellaneous Notes Miscellaneous - Sulema Call M.D. - 01/29/2013 2:01 PM CDT Ambulatory Patient Summary [facility] [address] [place] [address] Visit Information Name: NANCY ROBINS [facility] Number: [id number] Current Date: 01/29/2013 14:01:19 Physicians Attending Provider: SULEMA CALL MD Primary [...] Upcoming Appointments Date Time Location Reason Provider 02/26/2013 13:30 [facility] SPECIAL NEEDS TEACHER ob check Sulema Call MD Your Goals/Additional instructions: Source: [facility] POWERCHART Document Id: [id number] Miscellaneous - Sulema Call M.D. - 01/29/2013 2:01 PM CDT Ambulatory Depart Summary [facility] [address] [place] [address] Visit Information Name: NANCY ROBINS [facility] Number: [id number] Visit Date: 01/29/2013 14:01:18 Attending Provider: SULEMA CALL MD Primary Care [...] your provider for clarification. Additional Information: Source: [facility] POWERCHART Document Id: [id number] Miscellaneous - Conversion, Historical Provider Ser - 01/29/2013 1:31 PM CDT Adult Auto Parker Intake/History Adult Auto Parker Intake/History Entered On: 01/29/2013 13:32 CDT Performed On: 01/29/2013 13:31 CDT by JOSE CARLOS MIKE Intake Chief Complaint : OB See ACOG LMP Date : 08/13/2012 Ambulatory Intake Additional Information : 24 2/7 week gestation Systolic Blood Pressure : 120mmHg Diastolic Blood Pressure : 68mmHg NIBP Mean : 85mmHg BP Location : Left upper extremity Blood Pressure Cuff Size : Large Actual Weight : 130kg(Converted to: 286lb 10oz) Dosing Weight Clinic : 130.00kg JOSE CARLOS MIKE 01/29/2013 13:31 CDT General Info Information Given By : Patient Languages : Irish JOSE CARLOS MIKE 01/29/2013 13:31 CDT Subjective Pain Symptoms : No JOSE CARLOS MIKE 01/29/2013 13:31 CDT Dependent Habits Tobacco Use/Currently Using : No Exposure to Tobacco Smoke : Other: never Smoking Status : Never smoker JOSE CARLOS MIKE 01/29/2013 13:31 CDT Tobacco Use Grid Other Tobacco Frequency : never JOSE CARLOS MIKE 01/29/2013 13:31 CDT Caffeine Use Grid Caffeine Use : Current Type : Soft drinks Frequency : Daily JOSE CARLOS MIKE 01/29/2013 13:31 CDT Allergy Allergies (Active) NKA Estimated Onset Date: Unspecified ; Created By: CECIL ALEGRIA LPN; Reaction Status: Active ; Category: Drug ; Substance: NKA ; Type: Allergy ; Updated By: CECIL ALEGRIA LPN; Reviewed Date: 10/08/2012 8:49 SCUDDING INSPECTOR Source: [facility] [employer]CHART Document Id: [id number] documented in this encounter Plan of Treatment Upcoming Encounters Date Type Specialty Care Team Description 08/17/2022 Procedure visit Neurology Marina Winter M.D., M.P.H. [address] [phone] (Wo rk) Scheduled Procedures Name Priority Associated Diagnoses Date/Time LIFT THIGH Excessive And Redundant Skin And Subcutaneous Tissue documented as of this encounter Visit Diagnoses Not on filedocumented in this encounter Additional Health Concerns Assessment Noted Time PHQ-9 Depression Total Score: 17 05/07/2012 1:10 PM CD T documented as of this encounter
--- OUTSIDE RECORDS SUMMARY | 2022-07-24 15:18 | XMS_ITS | Encounter Summary ---
:[address] [facility] Address [address] [place] [address] Care Team Providers Name Role Phone Unavailable Primary Care Provider Unavailable Encounter Details Date Type Department Care Team Description 01/14/2013 Hospital Encounter [facility]X [facility] Gonzales M.D. [address] [place] [address] (Wo rk) Social History Tobacco Use Types [...] How often do you attend tenriism or protestant Never 07/04/2019 services? 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 [address] [place] [phone] (Wo rk) Scheduled Procedures Name Priority Associated Diagnoses Date/Time LIFT THIGH Excessive And Redundant Skin And Subcutaneous Tissue documented as of this encounter Procedures Procedure Name Priority Date/Time Associated Diagnosis Comme nts US OB FOLLOW UP OR Routine 01/14/2013 12:31 PM Re sults for this REPEAT CDT procedure are i n the results section. documented in this encounter Results US OB Follow Up or Repeat (01/14/2013 12:31 PM CDT) Anatomical Region Laterality Modality Ultrasound Specimen (Source) Anatomical Collection Method Collection Time Re ceived Time Location / / Volume Laterality 01/14/2013 12:31 PM CDT Addenda Addendum by Provider, Ella Moreno 01/14/2013 12:31 PM CDT RAD^^^OW US OB Follow Up or Repeat 01/14/2013 12:31:29 Impressions 01/14/2013 4:43 PM CDT 1. Limited anatomy survey as above . 2. Normal cardiac screening views. Narrative 01/14/2013 4:43 PM CDT EXAM: US OB Follow Up or Repeat INDICATION: finish survey COMPARISON: None. REFERRING PHYSICIAN: Dr. Winter TOBACCO PRIZER: Saige Clifford RDMS. : 4 PARA: 2 LMP: 08/13/2012 NIMA by LMP: 05/19/2013 GESTATIONAL AGE: 22 weeks and 1 days. Cervical length appears to be in excess of 4 cm measured transabdominally today. Fetus presents [ today. Amniotic fluid index is 14.5 cm. Normal four-chamber left and right outflow tracts are visible today. heart rate is 154 b eats per minute. Normal profile is identified today. Procedure Note Lorenzo Kirby M.D. / Provider, Sallie sandoval M.D. - 03/23/2017 EXAM: US OB Follow Up or Repeat INDICATION: finish survey COMPARISON: None. REFERRING PHYSICIAN: Dr. Winter TOBACCO PRIZER: Saige Clifford RDMS. : 4 PARA: 2 LMP: 08/13/2012 NIMA by LMP: 05/19/2013 GESTATIONAL AGE: 22 weeks and 1 days. Cervical length appears to be in excess of 4 cm measured transabdominally today. Fetus presents [ today. Amniotic fluid index is 14.5 cm. Normal four-chamber left and right outflow tracts are visible today. heart rate is 154 b eats per minute. Normal profile is identified today. IMPRESSION: 1. Limited anatomy survey as above . 2. Normal cardiac screening views. Saige Nick R.V.T., John IMG OB US PROCEDUR ES documented in this encounter Visit Diagnoses Not on filedocumented in this encounter Additional Health Concerns Assessment Noted Time PHQ-9 Depression Total Score: 17 05/07/2012 1:10 PM CD T documented as of this encounter
--- OUTSIDE RECORDS SUMMARY | 2022-07-24 15:18 | XMS_ITS | Encounter Summary ---
:[address] [facility] Address [address] [place] [address] Care Team Providers Name Role Phone Unavailable Primary Care Provider Unavailable Encounter Details Date Type Department Care Team Description 06/04/2013 Hospital Encounter HX [facility] Bryson Escobar Jr., M.D. [address] [place], [place] [phone] (Wo rk) Social History [...] How often do you attend druze or taoist Never 07/04/2019 services? 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 - 06/04/2013 3:31 PM CDT [id number] CHIEF COMPLAINT/REASON FOR VISIT: Nexplanon insertion HISTORY OF PRESENT ILLNESS: Nancy is a 28 year old female who presents to the clinic today for Nexplanon insertion. She reports that she has an uncomfortable cracking sensation in her pubic pone. She had an X-ray performed for this complaint on 05/26, and no breaks or fractures were seen. Her hemoglobin today was 9.8. She is 3 weeks post section, has had intercourse 2 weeks after delivery, is sure she is not and desires to proceed with nexplanon insertion. She intends to see a provider next week to receivePhentermine. The patient denies any additional questions or complaints at this time. CURRENT MEDICATIONS: Nystatin Colace Ibuprofen ALLERGIES: No known allergies VITAL SIGNS: WEIGHT: 117.5 kg PULSE: 72 /min BLOOD PRESSURE: 120 mmHg/62 mmHg SYSTEMS REVIEW: Please see HPI. PHYSICAL EXAM: GENERAL: Patient appears well groomed and well nourished. No acute distress. Oriented times three. ARM: Procedure was discussed and consent was signed. Two forms of identification were received priorto procedure. Area surrounding the patient's left arm was draped in sterile cloth. Area was cleaned with Betadine. 1% Lidocaine with epinepherine was used to anesthetize the area. Nexplanon device was then used to insert nexplanon into the upper medial left arm. Area was then washed with hydrogen peroxide. Patient was able to palpate the device and tolerated the procedure well. A band-aid was placed over the area and area was wrapped with gauze.. She was encouraged to keep the bandage on for the day. IMPRESSION/REPORT/PLAN: Normal examination. Plan: 1. Contraception: Nexplanon consent form was discussed and signed. Adverse effects of nexplanon usewere discussed today. She will contact the clinic if she has continued bleeding or other untoward side effects. The patient was advised to keep a bandage on the area for the day. She was counseled on the need for back up contraception for two weeks. 2. Pubic discomfort: The patient was counseled on the possibility of staining the pubic symphysis and was encouraged to ice the area. 3. Follow up: The patient will return to the clinic in 3 weeks for visit. The patient will return to the clinic by 05/25/2016 for removal and reinsertion of Nexplanon device. She will contact the clinic with any MANAGER EQUIPMENT related questions and concerns. This document serves as a record of services personally performed by Bryson Hoang MD. It was created on their behalf by Maldonado Nick, a trained medical secretary receptionist. The creation of this record is based on the scribe's personal observations and the provider's statements to them. This document has been checked and approved by the attending provider. Bryson Hoang M.D./jonh Electronically Signed By: BRYSON HOANG MD On: 06/04/2013 04:16 PM Source: [facility] MHSDOLBEYNONRADSYS Document Id: [id number] documented in this encounter Miscellaneous Notes Miscellaneous - Bryson Hoang Jr., M.D. - 06/04/2013 3:52 PM CDT Ambulatory Patient Summary [facility] [address] [place] [address] Visit Information Name: NANCY ROBINS [facility] Number: [id number] Current Date: 06/04/2013 15:52:03 Physicians Attending Provider: BRYSON HOANG MD Primary Care Provider: LEXII MINOR Your Medications Here is a list of your medications. It is important to take your medications as directed. Use a pillbox or chart to help remind you to take your medications. Please let your doctor or nurse know if you have problems taking your medications. Medication/Strength Dose Route Frequency Indications/Special Instructions/Comments/Notes etonogestrel (Nexplanon 68 mg subcutaneous implant) 68 mg Subcutaneous once nystatin topical (nystatin 100,000 units/g topical powder) [...] Upcoming Appointments Date Time Location Reason Provider 06/11/2013 13:15 [facility] would like to discuss phentermine Griselda Mckeon PA-C 06/23/2013 13:30 [facility] MANAGER EQUIPMENT post Bryson Hoang MD Your Goals/Additional instructions: Source: [facility] POWERCHART Document Id: [id number] Miscellaneous - Bryson Hoang Jr., M.D. - 06/04/2013 3:52 PM CDT [place] [address] Visit Information Name: NANCY ROBINS [facility] Number: [id number] Visit Date: 06/04/2013 15:52:03 Attending Provider: BRYSON HOANG MD Primary Care [...] medications. Medication/Strength Dose Route Frequency Indications/Special Instructions/Comments/Notes etonogestrel (Nexplanon 68 mg subcutaneous implant) 68 mg Subcutaneous once nystatin topical (nystatin 100,000 units/g topical powder) [...] your provider for clarification. Additional Information: Source: [facility]2,10E+07 Document Id: [id number] Miscellaneous - Nicki Vaz R.N. 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 Entered On: 06/04/2013 15:39 CDT Performed On: 06/04/2013 15:38 CDT by NICKI PAIGE Intake Chief Complaint : nexplanon Peripheral Pulse Rate : 72 /min Systolic Blood Pressure : 120 mmHg Diastolic Blood Pressure : 62 mmHg NIBP Mean : 81 mmHg BP Location : Left upper extremity Blood Pressure Cuff Size : Large Actual Weight : 117.5 kg(Converted to: 259 lb 1 oz) Dosing Weight Clinic : 117.5 kg NICKI PAIGE - 06/04/2013 15:38 CDT General Info Languages : Palauan NICKI PAIGE - 06/04/2013 15:38 CDT Subjective Pain Symptoms : No NICKI PAIGE - 06/04/2013 15:38 CDT Dependent Habits Tobacco Use/Currently Using : No Tobacco Use/Last 12 months : No Exposure to Tobacco Smoke : Other: never Smoking Status : Never smoker NICKI PAIGE - 06/04/2013 15:38 CDT Tobacco Use Grid Other Tobacco Frequency : never NICKI PAIGE - 06/04/2013 15:38 CDT Caffeine Use Grid Caffeine Use : Current Type : Soft drinks Frequency : Daily NICKI PAIGE - 06/04/2013 15:38 CDT [facility].tvCHART Document Id: [id number] documented in this encounter Plan of Treatment Upcoming Encounters Date Type Specialty Care Team Description 08/17/2022 Procedure visit Neurology Marina Winter M.D., M.P.H. [address] [phone] (Wo rk) Scheduled Procedures Name Priority Associated Diagnoses Date/Time LIFT THIGH Excessive And Redundant Skin And Subcutaneous Tissue documented as of this encounter Visit Diagnoses Not on filedocumented in this encounter Additional Health Concerns Assessment Noted Time PHQ-9 Depression Total Score: 17 05/07/2012 1:10 PM CD T documented as of this encounter
--- OUTSIDE RECORDS SUMMARY | 2022-07-24 15:18 | XMS_ITS | Encounter Summary ---
:1985 Author Organization [facility] Address [address] [place] [address] Care Team Providers Name Role Phone Unavailable Primary Care Provider Unavailable Encounter Details Date Type Department Care Team Description 12/19/2012 Hospital Encounter HX [facility] Sulema Gómez [...] How often do you attend yarsanism or jainism Never 07/04/2019 services? 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 - 12/19/2012 1:19 PM CST [id number] CHIEF COMPLAINT / REASON FOR VISIT care. HISTORY OF PRESENT ILLNESS Nancy is a 27-year-old 4, para 2, previous with a previous history of gestational diabetes. I asked her to check her blood sugar twice a day. She has not been doing this, so we prescribed her more lancets and test strips. I told her that if she has not started testing when she comes back in 2 weeks for her survey we will have no choice but make her do a 1-hour glucose tolerance test at that visit. The patient is not noting movements at this time. She is having no other problems. VITALS SIGNS BLOOD PRESSURE: 120/66 WEIGHT: 130.7 kg; unchanged from her last visit Fundal height is 18 cm. The infant is vertex by Tarik maneuvers and heart tones are appreciated in the midline suprapubic area. IMPRESSION / REPORT / PLAN 1. Intrauterine at 18 weeks. 2. Previous section. 3. Previous history of gestational diabetes. The plan is for the patient to begin testing her blood sugars twice a day and we will increase to 4 times a day once we reach 22 weeks. She is to continue to monitor for movements and return in 2weeks for her survey. Sulema Call M.D./mikel DOCID: [id number] cc: Labor and Delivery Electronically Signed By: SULEMA CALL MD On: 12/23/2012 09:05 AM Source: [facility] MHSDOLBEYNONRADSYS Document Id: [id number] L SUPERINTENDENT documented in this encounter Miscellaneous Notes Miscellaneous - Sulema Call M.D. - 12/19/2012 2:38 PM CST Ambulatory Patient Summary [facility] [address] [place] [address] Visit Information Name: NANCY ROBINS [facility] Number: [id number] Current Date: 12/19/2012 14:38:30 Physicians Attending Provider: SULEMA CALL MD Primary Care Provider: IVÁN LEXII Olguin Your Medications Here is a list of your medications. It is important to take your medications as directed. Use a pillbox or chart to help remind you to take your medications. Please let your doctor or nurse know if you have problems taking your medications. Medication/Strength Dose Route Frequency Indications/Special Instructions/Comments Misc Prescription (Diabetic test strips) See Instructions [...] Upcoming Appointments Date Time Location Reason Provider 01/01/2013 14:00 [facility] PROP MAKING SUPERVISOR survey 01/01/2013 15:00 [facility] PROP MAKING SUPERVISOR ob check Sulema Call MD Your Goals/Additional instructions: Source: [facility] POWERCHART Document Id: [id number] L SUPERINTENDENT Miscellaneous - Sulema Call M.D. - 12/19/2012 2:38 PM CST Ambulatory Depart Summary [address] [address] Visit Information Name: NANCY ROBINS [facility] Number: [id number] Visit Date: 12/19/2012 14:38:29 Attending Provider: SULEMA CALL MD Primary Care [...] medications. Medication/Strength Dose Route Frequency Indications/Special Instructions/Comments Misc Prescription (Diabetic test strips) See Instructions [...] your provider for clarification. 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 Intake/History Entered On: 12/19/2012 13:28 HOTEL SUPERINTENDENT Performed On: 12/19/2012 13:26 HOTEL SUPERINTENDENT by JOSE CARLOS MIKE Intake Chief Complaint : OB See ACOG LMP Date : 08/13/2012 Ambulatory Intake Additional Information : 18 3/7 week gestation Systolic Blood Pressure : 120mmHg Diastolic Blood Pressure : 66mmHg NIBP Mean : 84mmHg BP Location : Left upper extremity Blood Pressure Cuff Size : Large Actual Weight : 130.7kg(Converted to: 288lb 2oz) Dosing Weight Clinic : 130.70kg JOSE CARLOS MIKE - 12/19/2012 13:26 HOTEL SUPERINTENDENT General Info Information Given By : Patient Languages : Serbian JOSE CARLOS MIKE - 12/19/2012 13:26 HOTEL SUPERINTENDENT Subjective Pain Symptoms : No JOSE CARLOS MIKE - 12/19/2012 13:26 HOTEL SUPERINTENDENT Dependent Habits Tobacco Use/Currently Using : No Exposure to Tobacco Smoke : Other: never Smoking Status : Never smoker JOSE CARLOS MIKE 12/19/2012 13:26 HOTEL SUPERINTENDENT Tobacco Use Grid Other Tobacco Frequency : never JOSE CARLOS MIKE 12/19/2012 13:26 HOTEL SUPERINTENDENT Caffeine Use Grid Caffeine Use : Current Type : Soft drinks Frequency : Daily JOSE CARLOS MIKE 12/19/2012 13:26 HOTEL SUPERINTENDENT Allergy Allergies (Active) NKA Estimated Onset Date: Unspecified ; Created By: CECIL ALEGRIA LPN; Reaction Status: Active ; Category: Drug ; Substance: NKA ; Type: Allergy ; Updated By: CECIL ALEGRIA LPN; Reviewed Date: 10/08/2012 8:49 HOTEL SUPERINTENDENT Source: [facility] [employer] Document Id: [id number] documented in this encounter Plan of Treatment Upcoming Encounters Date Type Specialty Care Team Description 08/17/2022 Procedure visit Neurology Marina Winter M.D., M.P.H. [address] [phone] (Wo rk) Scheduled Procedures Name Priority Associated Diagnoses Date/Time LIFT THIGH Excessive And Redundant Skin And Subcutaneous Tissue documented as of this encounter Visit Diagnoses Not on filedocumented in this encounter Additional Health Concerns Assessment Noted Time PHQ-9 Depression Total Score: 17 05/07/2012 1:10 PM CD T documented as of this encounter
--- OUTSIDE RECORDS SUMMARY | 2022-07-24 15:18 | XMS_ITS | Encounter Summary ---
:1985 Author Organization [facility] Address [address] [place] [address] Care Team Providers Name Role Phone Unavailable Primary Care Provider Unavailable Encounter Details Date Type Department Care Team Description 01/01/2013 Hospital Encounter HX [facility] Sulema Gómez [...] How often do you attend caodaism or yarsani Never 07/04/2019 services? 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 - 01/01/2013 2:47 PM CST [id number] CHIEF COMPLAINT/REASON FOR VISIT care. HISTORY OF PRESENT ILLNESS Maria Alejandra is a 27-year-old 4, para 2, previous with a previous history of gestational diabetes. As of yet, she has not been able to purchase diabetic testing supplies because her insurance company will not authorize the test strips and meter that we had previously ordered; so that has been straightened out today and she will get that tomorrow and beginning testing twice a day. I have told her that at 24 weeks, we will begin testing 4 times a day. She is noting excellent movements and no symptoms of labor. VITAL SIGNS BLOOD PRESSURE: 130/66 WEIGHT: 130 kg. This is a 0.7 kg decrease from her last visit. FUNDAL HEIGHT: 21 cm, which is consistent. Her survey did confirm normal anatomy and confirmed her EDC as well as determining that she had a male child which she is disappointed in. IMPRESSION/REPORT/PLAN 1. Intrauterine 2. Previous . 3. History of gestational diabetes. Plan is for the patient to return in 1 month for her next visit. As mentioned earlier, I stressed the need for her to check her blood sugars twice a day fasting and one postprandial time, alternating breakfast, lunch, and dinner over successive days. 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 Intake/History Entered On: 01/01/2013 14:53 WAX CUTTER Performed On: 01/01/2013 14:52 WAX CUTTER by JOSE CARLOS MIKE Intake Chief Complaint : OB See ACOG LMP Date : 08/13/2012 Ambulatory Intake Additional Information : 20 1/7 week gestation Systolic Blood Pressure : 130mmHg Diastolic Blood Pressure : 66mmHg NIBP Mean : 87mmHg BP Location : Left upper extremity Blood Pressure Cuff Size : Large Actual Weight : 130kg(Converted to: 286lb 10oz) Dosing Weight Clinic : 130.00kg JOSE CARLOS MIKE 01/01/2013 14:52 WAX CUTTER General Info Information Given By : Patient Languages : South African JOSE CARLOS MIKE 01/01/2013 14:52 WAX CUTTER Subjective Pain Symptoms : No JOSE CARLOS MIKE 01/01/2013 14:52 WAX CUTTER Dependent Habits Tobacco Use/Currently Using : No Exposure to Tobacco Smoke : Other: never Smoking Status : Never smoker JOSE CARLOS MIKE 01/01/2013 14:52 WAX CUTTER Tobacco Use Grid Other Tobacco Frequency : never JOSE CARLOS MIKE 01/01/2013 14:52 WAX CUTTER Caffeine Use Grid Caffeine Use : Current Type : Soft drinks Frequency : Daily JOSE CARLOS MIKE 01/01/2013 14:52 WAX CUTTER Allergy Allergies (Active) NKA Estimated Onset Date: Unspecified ; Created By: CECIL ALEGRIA LPN; Reaction Status: Active ; Category: Drug ; Substance: NKA ; Type: Allergy ; Updated By: CECIL ALEGRIA LPN; Reviewed Date: 10/08/2012 8:49 WAX CUTTER Source: [employer] Document Id: [id number] documented in this encounter Plan of Treatment Upcoming Encounters Date Type Specialty Care Team Description 08/17/2022 Procedure visit Neurology Marina Winter M.D., M.P.H. [address] [phone] (Wo rk) Scheduled Procedures Name Priority Associated Diagnoses Date/Time LIFT THIGH Excessive And Redundant Skin And Subcutaneous Tissue documented as of this encounter Visit Diagnoses Not on filedocumented in this encounter Additional Health Concerns Assessment Noted Time PHQ-9 Depression Total Score: 17 05/07/2012 1:10 PM CD T documented as of this encounter
--- OUTSIDE RECORDS SUMMARY | 2022-07-24 15:18 | XMS_ITS | Encounter Summary ---
:1985 Author Organization [facility] Address [address] [place] [address] Care Team Providers Name Role Phone Unavailable [...] How often do you attend faith or methodist Never 07/04/2019 services? 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 [address] [phone] (Wo rk) Scheduled Procedures Name Priority Associated Diagnoses Date/Time LIFT THIGH Excessive And Redundant Skin And Subcutaneous Tissue documented as of this encounter Visit Diagnoses Not on filedocumented in this encounter Additional Health Concerns Assessment Noted Time PHQ-9 Depression Total Score: 17 05/07/2012 1:10 PM CD T documented as of this encounter
--- OUTSIDE RECORDS SUMMARY | 2022-07-24 15:18 | XMS_ITS | Encounter Summary ---
:1985 Author Organization [facility] Address [address] [place] [address] Care Team Providers Name Role Phone Unavailable Primary Care Provider Unavailable Encounter Details Date Type Department Care Team Description 01/06/2013 Hospital Encounter HX NO MAPPING Checo Wright III, M.D. (Skip), M.P.H. [address] [place], [place] [address] (Wo rk) Social History Tobacco Use [...] How often do you attend buddhist or sabianism Never 07/04/2019 services? 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 [address] [place] [phone] (Wo rk) Scheduled Procedures Name Priority Associated Diagnoses Date/Time LIFT THIGH Excessive And Redundant Skin And Subcutaneous Tissue documented as of this encounter Visit Diagnoses Not on filedocumented in this encounter Additional Health Concerns Assessment Noted Time PHQ-9 Depression Total Score: 17 05/07/2012 1:10 PM CD T documented as of this encounter
--- OUTSIDE RECORDS SUMMARY | 2022-07-24 15:18 | XMS_ITS | Encounter Summary ---
:1985 Author Organization [facility] Address [address] [place] [address] Care Team Providers Name Role Phone Unavailable Primary Care Provider Unavailable Encounter Details Date Type Department Care Team Description 04/26/2013 Hospital Encounter HX NO MAPPING Molly Clark Jr., M.D. [address] [place], [place] [phone] (Wo rk) Social History [...] How often do you attend cheondoism or methodist Never 07/04/2019 services? 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 [address] [place] [phone] (Wo rk) Scheduled Procedures Name Priority Associated Diagnoses Date/Time LIFT THIGH Excessive And Redundant Skin And Subcutaneous Tissue documented as of this encounter Visit Diagnoses Not on filedocumented in this encounter Additional Health Concerns Assessment Noted Time PHQ-9 Depression Total Score: 17 05/07/2012 1:10 PM CD T documented as of this encounter
--- OUTSIDE RECORDS SUMMARY | 2022-07-24 15:18 | XMS_ITS | Encounter Summary ---
:[address] [facility] Address [address] [place] [address] Care Team Providers Name Role Phone Unavailable Primary Care Provider Unavailable Encounter Details Date Type Department Care Team Description 04/20/2013 Hospital Encounter HX RST MELINA 3-3 Social History Tobacco Use Types Packs/Day Years [...] How often do you attend druze or rastafari Never 07/04/2019 services? 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 [address] [place], [place] [phone] (Wo rk) Scheduled Procedures Name Priority Associated Diagnoses Date/Time LIFT THIGH Excessive And Redundant Skin And Subcutaneous Tissue documented as of this encounter Procedures Procedure Name Priority Date/Time Associated Comments Diagnosis GLUCOSE POCT, B Routine 04/20/2013 8:44 Results f or this AM CDT procedure are i n the results section. ABORH, RBC Routine 04/20/2013 4:48 Results for this AM CDT procedure are i n the results section. ABORH, RBC Routine 04/20/2013 4:48 Results for this AM CDT procedure are i n the results section. ANTIBODY SCREEN, B Routine 04/20/2013 4:48 Result s for this AM CDT procedure are i n the results section. CBC WITHOUT Routine 04/20/2013 4:30 Results for this DIFFERENTIAL, B AM CDT procedure ar e in the results section. ASPARTATE Routine 04/20/2013 4:30 Results for this AMINOTRANSFERASE (AST), AM CDT proc edure are in S/P the results section. CREATININE WITH EGFR, Routine 04/20/2013 4:30 Res ults for this S/P AM CDT procedure are i n the results section. CONFIRMED DRUG ABUSE Routine 04/20/2013 4:23 Resu lts for this PANEL 9, U AM CDT procedure are i n the results section. ADULTERANTS SURVEY, U Routine 04/20/2013 4:23 Res ults for this AM CDT procedure are i n the results section. documented in this encounter Results Glucose, POCT (04/20/2013 8:44 AM CDT) [facility] gist Method Time Signature Glucose, 81 70 - 140 [facility] POCT, B MG/DL [facility] Sample Site, Capillary [facility] Blood Gas, LABORATORIES - POCT [facility] Specimen Anatomical Collection Method Collection Time Receive d Time (Source) Location / / Volume Laterality 04/20/2013 8:44 AM 3 8:44 CDT AM CDT Historical Provider LAB POCT ORDERABLES-MANUAL Performing Organization Address City/State/ZIP Code Phon e Number [facility] LABORATORIES - [address] [place], [place] [address] [facility] ABORh, RBC (04/20/2013 4:48 AM CDT) P athologist Signature HXABO/RH BLOOD A Pos [facility] TYPE [facility] Specimen (Source) Anatomical Collection Method Collection Time Re ceived Time Location / / Volume Laterality 04/20/2013 4:48 AM CDT Historical Provider LAB BLOOD BANK TEST ORDERABL ES Performing Organization Address City/[facility] [address]/[facility] Phon e Number [facility] LABORATORIES - [address] [phone] [facility] Antibody Screen, RBC (04/20/2013 4:48 AM CDT) [facility] Method Time Signature Antibody Negative [facility] Screen [facility] Specimen (Source) Anatomical Collection Method Collection Time Re ceived Time Location / / Volume Laterality 04/20/2013 4:48 AM CDT Historical Provider LAB BLOOD BANK TEST ORDERABL ES Performing Organization Address City/[facility] [address]/[facility] Phon e Number [facility] - [address] [phone] [facility] ABORh, RBC (04/20/2013 4:48 AM CDT) P athologist Signature HXABO/RH A POS [facility] Specimen (Source) Anatomical Collection Method Collection Time Re ceived Time Location / / Volume Laterality 04/20/2013 4:48 AM CDT Historical Provider LAB BLOOD BANK TEST ORDERABL ES Performing Organization Address City/[facility] [address]/[facility] Phon e Number [facility] - [address] [phone] [facility] AST (Aspartate Aminotransferase) (04/20/2013 4:30 AM CDT) P athologist Signature AST, Total, S 12 8 - 43 U/L [facility] Specimen Anatomical Collection Method Collection Time Receive d Time (Source) Location / / Volume Laterality 04/20/2013 4:30 AM 3 4:30 CDT AM CDT Nimco Gonzalez M.D. LAB BLOOD ADD-ON Performing Organization Address City/[facility] [address]/ZIP [facility] Phon e Number [facility] - [address] [phone] [facility] Creatinine with Estimated GFR (MDRD) (04/20/2013 4:30 AM CDT) Analysis Performed At [facility] logist Time Signature eGFR-Black/Afri >60 >60 [facility] can [place] ML/MIN/BSA [facility] Creatinine 0.6 0.6 - 1.1 [facility] MG/DL [facility] eGFR >60 >60 [facility] Non-Black/Afric ML/MIN/BSA LABORATORIES - an [place] [facility] Specimen Anatomical Collection Method Collection Time Receive d Time (Source) Location / / Volume Laterality 04/20/2013 4:30 AM 3 4:30 CDT AM CDT Nimco Gonzalez M.D. LAB BLOOD ADD-ON Performing Organization Address City/[facility] [address]/[facility] Code Phon e Number [facility] LABORATORIES - [address] (ABNORMAL) CBC without Differential (04/20/2013 4:30 AM CDT) [facility] Method Time Signature Hemoglobin 11.4 (L) 12.0 - [facility] 15.5 G/DL [facility] Hematocrit 34.4 (L) 34.9 - [facility] 44.5 % [facility] RBC Distrib 14.3 11.9 - [facility] Width 15.5 % [facility] Platelet Count 188 150 - 450 [facility] X10(9)/L [facility] Leukocytes 10.2 3.5 - [facility] 10.5 LABORATORIES - X10(9)/L [facility] Erythrocytes 4.15 3.90 - [facility] 5.03 LABORATORIES - X10(12)/L [facility] MCV 82.9 81.6 - [facility] 98.3 FL [facility] Specimen Anatomical Collection Method Collection Time Receive d Time (Source) Location / / Volume Laterality 04/20/2013 4:30 AM 3 4:30 CDT AM CDT Nimco Gonzalez M.D. LAB BLOOD ADD-ON Performing Organization Address City/State/[facility] Code Phon e Number [facility] LABORATORIES - [address] [place] [phone] [facility] Adulterants Survey, Urine (04/20/2013 4:23 AM CDT) [facility] Method Time Signature Creatinine, U 90.5 MG/DL [facility] (w/ADULT) [facility] Specific 1.028 [facility] [place] [facility] pH 5.5 [facility] Oxidants Negative [facility] Specimen Anatomical Collection Method Collection Time Receive d Time (Source) Location / / Volume Laterality 04/20/2013 4:23 AM 3 4:23 CDT AM CDT Historical Provider LAB URINE ORDERABLES Performing Organization Address City/State/ZIP Code Phon e Number [facility] - [address] [place], [place] [address] [facility] Drug Abuse Survey with Confirmation, Panel 9, Urine (04/20/2013 4:23 AM CDT) Component Value Ref Test Analysis Performed At [facility] gist Range Method Time Signature Alcohol Negative Cutoff: [facility] 30 MG/DL [facility] Amphetamines, U Negative Cutoff: [facility] 500 LABORATORIES - NG/ML [facility] Cocaine, Quant Negative Cutoff: [facility] 150 LABORATORIES - NG/ML [facility] Methadone Metabolite Negative Cutoff: [facility] 300 LABORATORIES - NG/ML [facility] Propoxyphene, U Negative Cutoff: [facility] 300 LABORATORIES - NG/ML [facility] Tetrahydrocannabinol Negative Cutoff: [facility] 20 NG/ML [facility] Barbiturates Screen Negative Cutoff: [facility] 200 LABORATORIES - NG/ML [facility] Benzodiazepines Negative Cutoff: [facility] 200 LABORATORIES - NG/ML [facility] Opiates Negative Cutoff: [facility] 300 LABORATORIES - NG/ML [facility] Phencyclidine Negative Cutoff: [facility] 25 NG/ML [facility] Chain of Custody . [facility] Comment: Chain of custody documents are on file i n the [facility]. ? This report is intended for use in clini lori monitoring or management of ? patients. ??It is not intended for use i n employment-related testing. ? Specimen Anatomical Collection Method Collection Time Receive d Time (Source) Location / / Volume Laterality 04/20/2013 4:23 AM 3 4:23 CDT AM CDT Historical Provider LAB URINE ORDERABLES Performing Organization Address City/State/[facility] Phon e Number [facility] LABORATORIES - [address] [place], [place] [address] [facility] documented in this encounter Visit Diagnoses Not on filedocumented in this encounter Additional Health Concerns Assessment Noted Time PHQ-9 Depression Total Score: 17 05/07/2012 1:10 PM CD T documented as of this encounter
--- OUTSIDE RECORDS SUMMARY | 2022-07-24 15:18 | XMS_ITS | Encounter Summary ---
:1985 Author Organization [facility] Address [address] [place] [address] Care Team Providers Name Role Phone Unavailable Primary Care Provider Unavailable Encounter Details Date Type Department Care Team Description 01/01/2013 Hospital Encounter [facility]X [facility] Gonzales M.D. [address] [place] [address] (Wo rk) Social History Tobacco [...] How often do you attend judaism or zoroastrianism Never 07/04/2019 services? 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 [address] [place] [address] [phone] (Wo rk) Scheduled Procedures Name Priority Associated Diagnoses Date/Time LIFT THIGH Excessive And Redundant Skin And Subcutaneous Tissue documented as of this encounter Procedures Procedure Name Priority Date/Time Associated Diagnosis Comme nts US OB GREATER THAN Routine 01/01/2013 2:02 PM Res ults for this 14 WEEKS COMMERCIAL ROOFING ESTIMATOR procedure are i n the results section. documented in this encounter Results US OB Greater than 14 weeks (01/01/2013 2:02 PM COMMERCIAL ROOFING ESTIMATOR) Anatomical Region Laterality Modality Ultrasound Specimen (Source) Anatomical Collection Method Collection Time Re ceived Time Location / / Volume Laterality 01/01/2013 2:02 PM COMMERCIAL ROOFING ESTIMATOR Addenda Addendum by Provider, Ella Moreno 01/01/2013 2:02 PM COMMERCIAL ROOFING ESTIMATOR RAD^^^OW US OB Greater than 14 weeks 01/01/2013 14:02:31 Impressions 01/01/2013 4:45 PM COMMERCIAL ROOFING ESTIMATOR 1. Viable with AGA of 20 weeks and 4 days, consistent with EDC of 05/17/2013. 2. anatomic survey fails to demons trate any anomalies. The left outflow tract and profile were not well visualized however. In general, it is reasonable to use [...] No anomalies were detected by maureen paz's survey noting the limitations of ultrasound for detection of aneuploidy, as well as congenital heart defects. Narrative 01/01/2013 4:45 PM COMMERCIAL ROOFING ESTIMATOR EXAM: US OB Greater than 14 weeks INDICATION: Survey REFERRING PHYSICIAN: Dr. Call : 4 ?? PARA: 2 LMP: 08/13/2012 ? NIMA by LMP: 05/19/20 13 ?EGA by LMP: 20 weeks 2 days NUMBER: One ??CHORIONICITY: N/A PRESENTATION: Cephalic UTERUS: Visually normal. CERVIX: 4.4 cm PLACENTA: Posterior with no evidence of placenta previa nor abruption. ADNEXA: Visually normal, no adnexal mass es detected. AMNIOTIC FLUID INDEX: Appropriate and no rmal for gestational age at 11.7 cm. BIOMETRY GA(BPD): 4.82 cm 20 weeks 3 days GA(HC): 18.2 cm 20 weeks 4 days GA(AC): 15.8 cm 21 weeks 0 days GA(FL): 3.34 cm 20 weeks 3 days GA(HL): 3.33 cm 21 weeks 2 days Based on the above, the average ultrasou nd age is 20 weeks and 4 days. See 'Impression' below for ultrasound ca lculation of Estimated Date of Delivery (NIMA). The estimated weight of 372 grams is equivalent to the 54 percentile. The following anatomic features we re well visualized and appear normal today: SPINE (longitudinal and transverse): Nor mal CEREBELLUM: Normal CISTERNA MAGNA: Normal NUCHAL FOLD: Normal LATERAL VENTRICLES: Normal CHOROID PLEXUS: Normal FOUR CHAMBER HEART: Normal HEART RATE: 158 beats per minute CARDIAC AXIS: Normal RIGHT AND LEFT OUTFLOW TRACTS: Normal ri ght outflow tract is seen. Left outflow tract not visualized. ANTERIOR ABDOMINAL WALL: Normal DIAPHRAGM: Normal CORD INSERTION: Normal THREE VESSEL CORD: Normal STOMACH: Normal BLADDER: Normal KIDNEYS: Normal EXTREMITIES (arms and legs): Normal HANDS AND FEET: Normal ORBITS: Normal PROFILE: Not visualized NOSE AND LIPS: Normal CORD INSERTION AT PLACENTA: Normal Procedure Note Lorenzo Kirby M.D. / Provider, Sallie sandoval M.D. - 03/23/2017 EXAM: US OB Greater than 14 weeks INDICATION: Survey REFERRING PHYSICIAN: Dr. Call : 4 PARA: 2 LMP: 08/13/2012 NIMA by LMP: 05/19/2013 EGA by LMP: 20 weeks 2 days NUMBER: One CHORIONICITY: N/A PRESENTATION: Cephalic UTERUS: Visually normal. CERVIX: 4.4 cm PLACENTA: Posterior with no evidence of placenta previa nor abruption. ADNEXA: Visually normal, no adnexal mass es detected. AMNIOTIC FLUID INDEX: Appropriate and no rmal for gestational age at 11.7 cm. BIOMETRY GA(BPD): 4.82 cm 20 weeks 3 days GA(HC): 18.2 cm 20 weeks 4 days GA(AC): 15.8 cm 21 weeks 0 days GA(FL): 3.34 cm 20 weeks 3 days GA(HL): 3.33 cm 21 weeks 2 days Based on the above, the average ultrasou nd age is 20 weeks and 4 days. See 'Impression' below for ultrasound ca lculation of Estimated Date of Delivery (NIMA). The estimated weight of 372 grams is equivalent to the 54 percentile. The following anatomic features we re well visualized and appear normal today: SPINE (longitudinal and transverse): Nor mal CEREBELLUM: Normal CISTERNA MAGNA: Normal NUCHAL FOLD: Normal LATERAL VENTRICLES: Normal CHOROID PLEXUS: Normal FOUR CHAMBER HEART: Normal HEART RATE: 158 beats per minute CARDIAC AXIS: Normal RIGHT AND LEFT OUTFLOW TRACTS: Normal ri ght outflow tract is seen. Left outflow tract not visualized. ANTERIOR ABDOMINAL WALL: Normal DIAPHRAGM: Normal CORD INSERTION: Normal THREE VESSEL CORD: Normal STOMACH: Normal BLADDER: Normal KIDNEYS: Normal EXTREMITIES (arms and legs): Normal HANDS AND FEET: Normal ORBITS: Normal PROFILE: Not visualized NOSE AND LIPS: Normal CORD INSERTION AT PLACENTA: Normal IMPRESSION: 1. Viable with AGA of 20 weeks and 4 days, consistent with EDC of 05/17/2013. 2. anatomic survey fails to demons trate any anomalies. The left outflow tract and profile were not well visualized however. In general, it is reasonable to use [...] No anomalies were detected by maureen paz's survey noting the limitations of ultrasound for detection of aneuploidy, as well as congenital heart defects. Saige Nick R.V.T., Galile[employer]. IMG OB US PROCEDUR ES documented in this encounter Visit Diagnoses Not on filedocumented in this encounter Additional Health Concerns Assessment Noted Time PHQ-9 Depression Total Score: 17 05/07/2012 1:10 PM CD T documented as of this encounter
--- OUTSIDE RECORDS SUMMARY | 2022-07-24 15:19 | XMS_ITS | Encounter Summary ---
:1985 Author Organization [facility] Address [address] [place] [address] Care Team Providers Name Role Phone Unavailable Primary Care Provider Unavailable Encounter Details Date Type Department Care Team Description 09/10/2012 Hospital Encounter HX [facility]ILY[facility] Grandalfred, Lizandro Olguin, P.A.-C., P.A. [address], [place] [phone] (Wo rk) Social History [...] How often do you attend muslim or confucianist Never 07/04/2019 services? 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 - 09/10/2012 2:31 PM CST [id number] CHIEF COMPLAINT/REASON FOR VISIT Confirmation of . HISTORY OF PRESENT ILLNESS Maria Alejandra is a 27-year-old here today to confirm . LMP 08/09/2012. She has been having unprotected intercourse. She did a home test yesterday which was positive. She is not taking any medications at this time. She does have some mild heartburn symptoms, which she is only ever gotten in the past with previous pregnancies. She denies any other complaints or concerns. She is having some ongoing relationship problems with the father of the baby. This is a second with him. They have a 2-year-old son. Relationship is strained and on again and off again. She previously had been on antidepressants with venlafaxine for anxiety and depression. She has not been taking this for the past few weeks. She states that Samir she is interested in working things out and she is requesting a referral to counseling and a referral to [facility] placed. She will call to schedule appointment. She requests STI screening today. Partner admits to once again being unfaithful. She has had previous episodes of chlamydia and she is currently asymptomatic. CURRENT MEDICATIONS None. ALLERGIES None. VITAL SIGNS Reviewed EMR dated 09/10/2012 with no changes. PHYSICAL EXAMINATION GENERAL APPEARANCE: In no acute distress. Appropriately groomed and dressed. Mood and affect are appropriate. 15 minutes spent in discussion and counseling, coordinating care and providing support. IMPRESSION / REPORT / PLAN 1. Confirmation of . PLAN: Urine test is positive. She was given written prescription for vitamins. Shelbi schedule her to see Linda Vera and establish ongoing obstetrical care with [facility]. She has had 2previous C-sections and so will follow with [facility]. Based on LMP dates of 08/09/2012 she is currently 4-4/7 weeks gestation with an EDC of 05/16/2013. 2. STI screening. PLAN: Urine GC chlamydia is pending. She will have further physical exam with a new OB visit scheduled in a month. She will be notified of GC and chlamydia results when available and appropriate treatment as indicated. 3. Relationship issues and social stressors. PLAN: As above, referral to [facility] provided. I do think they would benefit fromcounseling. She will call and schedule an appointment at their convenience. She will follow up as needed. Lexii Minor P.A.-C./briana Electronically Signed By: LEXII MINOR On: 09/12/2012 01:58 PM Source: [facility] MHSDOLBEYNONRADSYS Document Id: [id number] OPERATOR documented in this encounter Miscellaneous Notes Miscellaneous - Conversion, Historical Provider Ser - 10/30/2012 2:37 PM BUS OPERATOR Med Management Vistaril Document Contains Addenda Addendum by LEXII MINOR on 30 October 2012 15:08:44 BUS OPERATOR Approved with modifications: Order Order: hydrOXYzine (Vistaril 25 mg oral capsule) 1 cap(s) PO 4xDay Qty: 30 cap(s) Refills: 0 Migraine headache and nausea Route To Pharmacy - [facility] Signed by LEXII MINOR 10/30/2012 15:08:26 From: KHLOE LOAIZA To: LEXII MINOR; Sent: 10/30/2012 14:37:50 BUS OPERATOR Subject: Med Management Vistaril On hold pending signature Order Order: hydrOXYzine (Vistaril 25 mg oral capsule) 1 cap(s) PO 4xDay Qty: 30 cap(s) Refills: 5 Migraine headache Route To Pharmacy - [facility] 982 Caller is: ( ) Patient ( ) Mother ( ) Father ( ) Spouse ( ) Daughter ( ) [facility]acy ( ) Other: Physician: Solia Patient MRN #: Reason for Call: Message: S. Refill request. B. Medication on the EMR inactive list. Last refill by Dr. Mccormack on 02/29/12. Last appointment 09/10/12. No pending appointment. A. R. Advice/Action: Source used: ( ) Verbalizes understanding [...] back cell phone number ( ) Source: [facility] CircleBuilder Document Id: [id number] Miscellaneous - Lexii Minor, PMichael.-C., P.A. - 09/11/2012 5:28 PM BUS OPERATOR Results Notification Document Contains Addenda Addendum by TOÑO FRAGA on 11 September 2012 17:44:16 BUS OPERATOR Patient notified. From: LEXII MINOR To: TOÑO FRAGA Sent: 09/11/2012 17:28:30 BUS OPERATOR ! Show up: 09/11/2012 23:28:30 [facility] Subject: Results Notification Actions: Notify patient of results Source: [facility] CircleBuilder Document Id: [id number] Electronically signed by Conversion, [facility] [employer] [id number] at 04/07/2017 6:55 PM CDT Miscellaneous - Conversion, Historical Provider Ser - 09/10/2012 2:36 PM BUS OPERATOR Adult Animal Biologist Intake/History Adult Animal Biologist Intake/History Entered On: 09/10/2012 14:39 BUS OPERATOR Performed On: 09/10/2012 14:36 BUS OPERATOR by TOÑO FRAGA Intake Chief Complaint : - postive home on Sunday LMP Date : 08/09/2012 Temperature Oral : 36.7C(Converted to: 98.1DegF) Peripheral Pulse Rate : 80/min Respiratory Rate : 18/min Heart Rhythm : Regular Systolic Blood Pressure : 110mmHg Diastolic Blood Pressure : 72mmHg NIBP Mean : 85mmHg BP Location : Right upper extremity Blood Pressure Cuff Size : Large Actual Weight : 129.0kg(Converted to: 284lb 6oz) Weight Source : Standing scale Dosing Weight Clinic : 129.00kg TOÑO FRAGA 09/10/2012 14:36 BUS OPERATOR General Info Information Given By : Patient Preferred Communication Mode : Verbal Languages : Cypriot TOÑO FRAGA - 09/10/2012 14:36 BUS OPERATOR Subjective Pain Symptoms : No TOÑO FRAGA - 09/10/2012 14:36 BUS OPERATOR Dependent Habits Tobacco Use/Currently Using : No Exposure to Tobacco Smoke : Other: never Smoking Status : Never smoker TOÑO FRAGA - 09/10/2012 14:36 BUS OPERATOR Tobacco Use Grid Other Tobacco Frequency : non TOÑO FRAGA - 09/10/2012 14:36 BUS OPERATOR Caffeine Use Grid Caffeine Use : Current Type : Soft drinks Frequency : Daily TOÑO FRAGA - 09/10/2012 14:36 BUS OPERATOR Allergy Allergies (Active) NKA Estimated Onset Date: Unspecified ; Created By: CECIL ALEGRIA LPN; Reaction Status: Active ; Category: Drug ; Substance: NKA ; Type: Allergy ; Updated By: CECIL ALEGRIA LPN; Reviewed Date: 09/10/2012 14:36 BUS OPERATOR Source: [facility] POWERCHART Document Id: [id number] documented in this encounter Plan of Treatment Upcoming Encounters Date Type Specialty Care Team Description 08/17/2022 Procedure visit Neurology Marina Winter M.D., M.P.H. [address] [place], [place] [phone] (Wo rk) Scheduled Procedures Name Priority Associated Diagnoses Date/Time LIFT THIGH Excessive And Redundant Skin And Subcutaneous Tissue documented as of this encounter Procedures Procedure Name Priority Date/Time Associated Diagnosis Comme nts N GONOR AMP SRC Routine 09/10/2012 3:23 PM Result s for this BUS OPERATOR procedure are i n the results section. N GONOR AMP DNA Routine 09/10/2012 3:23 PM Result s for this BUS OPERATOR procedure are i n the results section. C TRACH AMP SRC Routine 09/10/2012 3:23 PM Result s for this BUS OPERATOR procedure are i n the results section. C TRACH AMP RNA Routine 09/10/2012 3:23 PM Result s for this BUS OPERATOR procedure are i n the results section. documented in this encounter Results HX-N gonor Amp DNA (09/10/2012 3:23 PM BUS OPERATOR) athologist Signature HXN gonor Amp Negative POWERCHART DNA-[place] Specimen (Source) Anatomical Collection Method Collection Time Re ceived Time Location / / Volume Laterality 09/10/2012 3:23 PM BUS OPERATOR Narrative POWERCHART - 09/11/2012 3:53 PM BUS OPERATOR Test Performed by: [place] [address] Pharmaceutical Plant Operator: Federico anne III, M.D. Lexii Minor P.A.-C., P.A. LAB HISTORICAL ORDERS Performing Organization Address City/[facility]/ZIP Code Phon e Number POWERCHART HX-N gonor Amp Src (09/10/2012 3:23 PM BUS OPERATOR) athologist Signature HXN gonor Amp urine POWERCHART Src-[place] Specimen (Source) Anatomical Collection Method Collection Time Re ceived Time Location / / Volume Laterality 09/10/2012 3:23 PM BUS OPERATOR Lexii Minor P.A.-C., P.A. LAB HISTORICAL ORDERS Performing Organization Address City/State/ZIP Code Phon e Number POWERCHART HX-C trach Amp RNA (09/10/2012 3:23 PM BUS OPERATOR) [facility] gist Method Time Signature Chlamydia Negative POWERCHART trachomatis amplified RNA Specimen (Source) Anatomical Collection Method Collection Time Re ceived Time Location / / Volume Laterality 09/10/2012 3:23 PM BUS OPERATOR Lexii Minor P.A.-C., P.A. LAB HISTORICAL ORDERS Performing Organization Address City/State/ZIP Code Phon e Number POWERCHART HX-C trach Amp Src (09/10/2012 3:23 PM BUS OPERATOR) P athologist Signature HXC trach Amp urine POWERCHART [facility] Specimen (Source) Anatomical Collection Method Collection Time Re ceived Time Location / / Volume Laterality 09/10/2012 3:23 PM BUS OPERATOR Lexii Minor P.A.-C., P.A. LAB HISTORICAL ORDERS Performing Organization Address City/State/ZIP Code Phon e Number POWERCHART documented in this encounter Visit Diagnoses Not on filedocumented in this encounter Additional Health Concerns Assessment Noted Time PHQ-9 Depression Total Score: 17 05/07/2012 1:10 PM CD T documented as of this encounter
--- OUTSIDE RECORDS SUMMARY | 2022-07-24 15:19 | XMS_ITS | Encounter Summary ---
:1985 Author Organization [facility] Address [address] [place] [address] Care Team Providers Name Role Phone Unavailable Primary Care Provider Unavailable Encounter Details Date Type Department Care Team Description 09/27/2011 Hospital Encounter HX [facility] FAMILY[facility] Grandalfred, Lizandro Olguin, P.A.-C., P.A. [address] [place], [place] [phone] (Wo rk) Social History [...] How often do you attend temple or congregation Never 07/04/2019 services? 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 - 09/27/2011 12:00 AM CST [id number] CHIEF COMPLAINT / REASON FOR VISIT Vaginitis, STI screening. HISTORY OF PRESENT ILLNESS Maria Alejandra is a 26-year-old female who presents today requesting to be checked for chlamydia. She recently found out boyfriend has been with another woman and was informed that she tested positive for chlamydia. Maria Alejandra does have some mild vaginal discharge and irritation but no pelvic pain. No other symptoms. She has had previous chlamydia in the past, which was treated. CURRENT MEDICATIONS Celexa 40 mg daily. Naprosyn as needed. Imitrex as needed. Depo-Provera every 12 weeks. ALLERGIES No known drug allergies. VITAL SIGNS Reviewed and documented per EMR. PHYSICAL EXAM GENERAL: Overweight female in no acute distress. She is alert and pleasant. She is visibly upset and distraught over this situation. HEART: Regular rate and rhythm with normal S1 and S2. No murmur. LUNGS: Clear throughout with normal respiratory rate and effort. ABDOMEN: Obese, soft, nontender. No hepatosplenomegaly. Bowel sounds present. : Normal external genitalia. Speculum exam reveals healthy vaginal mucosa. I do not appreciate any significant discharge or leukorrhea. Cervix without discharge or ectopy. Bimanual exam without adnexal masses or cervical motion tenderness. DMITRY, wet prep negative. GC/chlamydia pending. IMPRESSION / REPORT / PLAN 1) Sexually transmitted infection screening with recent exposure. PLAN: I did elect to go ahead and treat her with Zithromax 1000 mg x1. She does request, however, to know whether she has positive chlamydia or not. She will be notified of these results when available. Also treat her partner with Zithromax. Safe sex habits reviewed, and printed information on chlamydia was given and reviewed for her to share with her partner. Otherwise we will follow up on an as-needed basis. Chris Tsai Electronically Signed By: LEXII MINOR On: 10/03/2011 08:08 AM Source: [facility] MHSDOLBEYNONRADSYS Document Id: [id number] IGERATION TECH documented in this encounter Miscellaneous Notes Miscellaneous - Lexii Minor P.A.-C., P.A. - 10/02/2011 4:47 PM REFRIGERATION TECH Results Notification Document Contains Addenda Addendum by TOÑO FRAGA on 02 October 2011 16:52:21 REFRIGERATION TECH patient notified. From: LEXII MINOR To: TOÑO FRAGA Sent: 10/02/2011 16:47:39 REFRIGERATION TECH ! Show up: 10/02/2011 22:47:39 [facility] Subject: Results Notification Actions: Notify patient of results Due Date/Time: 10/02/2011 17:47:00 REFRIGERATION TECH Source: [facility] AdtradeCHART Document Id: [id number] Electronically signed by Conversion, [facility] Insulator Cutter And Former [id number] at 04/08/2017 1:35 PM CDT Miscellaneous - Lexii Minor PMichael.-Lexy., P.A. - 09/27/2011 1:16 PM REFRIGERATION TECH Results Notification Document Contains Addenda Addendum by TOÑO FRAGA on 27 September 2011 13:50:01 REFRIGERATION TECH Patient notified. From: LEXII MINOR To: TOÑO FRAGA Sent: 09/27/2011 13:16:55 REFRIGERATION TECH ! Show up: 09/27/2011 19:16:55 [facility] Subject: Results Notification Actions: Notify patient of results Due Date/Time: 09/27/2011 14:16:00 REFRIGERATION TECH Source: [facility] AdtradeCHART Document Id: [id number] Electronically signed by Conversion, [facility] Insulator [employer] Former [id number] at 04/08/2017 1:35 PM CDT Miscellaneous - Conversion, Historical Provider Ser - 09/27/2011 10:33 AM REFRIGERATION TECH Adult Employee Adviser Intake/History Adult Employee Adviser Intake/History Entered On: 09/27/2011 10:35 REFRIGERATION TECH Performed On: 09/27/2011 10:33 REFRIGERATION TECH by TOÑO FRAGA Intake Chief Complaint : Would like to be tested for clamydia- Temperature Oral : 36.8C(Converted to: 98.2DegF) Peripheral Pulse Rate : 76/min Respiratory Rate : 18/min Systolic Blood Pressure : 122mmHg Diastolic Blood Pressure : 74mmHg NIBP Mean : 90mmHg BP Location : Right upper extremity Actual Weight : 112.6kg(Converted to: 248lb 4oz) Weight Source : Standing scale Dosing Weight Clinic : 112.60kg TOÑO FRAGA - 09/27/2011 10:33 REFRIGERATION TECH General Info Information Given By : Patient Preferred Communication Mode : Verbal Languages : Korean TOÑO FRAGA - 09/27/2011 10:33 REFRIGERATION TECH Subjective Pain Symptoms : No SAVITA FRAGAA 09/27/2011 10:33 REFRIGERATION TECH Dependent Habits Tobacco Use/Currently Using : No Smoking Status : Never smoker TOÑO FRAGA 09/27/2011 10:33 REFRIGERATION TECH Tobacco Use Grid Other Tobacco Frequency : non SAVITA FRAGAA 09/27/2011 10:33 REFRIGERATION TECH Caffeine Use Grid Caffeine Use : Current Type : Soft drinks Frequency : Daily TOÑO FRAGA 09/27/2011 10:33 REFRIGERATION TECH Allergy Allergies (Active) NKA Estimated Onset Date: Unspecified ; Created By: CECIL ALEGRIA LPN; Reaction Status: Active ; Category: Drug ; Substance: NKA ; Type: Allergy ; Updated By: CECIL ALEGRIA LPN; Reviewed Date: 09/27/2011 10:33 REFRIGERATION TECH Source: [facility] POWERCHART Document Id: [id number] REFRIGERATION TECH!30 documented in this encounter Plan of Treatment Upcoming Encounters Date Type Specialty Care Team Description 08/17/2022 Procedure visit Neurology Marina Winter M.D., M.P.H. [address] [phone] (Wo rk) Scheduled Procedures Name Priority Associated Diagnoses Date/Time LIFT THIGH Excessive And Redundant Skin And Subcutaneous Tissue documented as of this encounter Visit Diagnoses Not on filedocumented in this encounter Additional Health Concerns Assessment Noted Time PHQ-9 Depression Total Score: 11 08/15/2011 9:20 AM CD T documented as of this encounter
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
--- OUTSIDE RECORDS SUMMARY | 2022-07-24 15:19 | XMS_ITS | Encounter Summary ---
:1985 Author Organization [facility] Address [address] [place] [address] Care Team Providers Name Role Phone Unavailable Primary Care Provider Unavailable Encounter Details Date Type Department Care Team Description 12/21/2011 Hospital Encounter [facility] Sj Lawton, P.ARodrigo-CRodrigo [address] [place] [phone] (Wo rk) Social History Tobacco [...] How often do you attend nondenominational or latter-day Never 07/04/2019 services? 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 Last Filed Vital Signs Vital Sign Reading Time Taken Comments Blood Pressure 126/66 12/21/2011 1:25 PM AUDIOLOGY TECHNICIAN Pulse 76 12/21/2011 1:25 PM AUDIOLOGY TECHNICIAN Temperature - - Respiratory Rate - - Oxygen Saturation - - Inhaled Oxygen Concentration - - Weight - - Height - - Body Mass Index - - documented in this encounter Miscellaneous Notes Miscellaneous - Mamie Lawton - 12/21/2011 2:06 PM CST School or Work Excuse School or Work Excuse Entered On: 12/21/2011 14:07 AUDIOLOGY TECHNICIAN Performed On: 12/21/2011 14:06 AUDIOLOGY TECHNICIAN by MAMIE LAWTON School or Work Excuse Date Patient Seen : 12/21/2011 AUDIOLOGY TECHNICIAN Date of Return to School/Work Without Restrictions : 12/25/2011 AUDIOLOGY TECHNICIAN MAMIE LAWTON - 12/21/2011 14:06 AUDIOLOGY TECHNICIAN Source: [facility] Pixel PressCHART Document Id: [id number] AUDIOLOGY TECHNICIAN!4 OLOGY TECHNICIAN Miscellaneous - Chapis Davalos L.P.N. - 12/21/2011 1:25 PM AUDIOLOGY TECHNICIAN Adult Network Director Intake/History Adult Network Director Intake/History Entered On: 12/21/2011 13:32 AUDIOLOGY TECHNICIAN Performed On: 12/21/2011 13:25 AUDIOLOGY TECHNICIAN by CHAPIS DAVALOS Intake Chief Complaint : Emotionally unstable -having home problems. Temperature Oral : 36.7C(Converted to: 98.1DegF) Peripheral Pulse Rate : 76/min Systolic Blood Pressure : 126mmHg Diastolic Blood Pressure : 66mmHg NIBP Mean : 86mmHg CHAPIS DAVALOS - 12/21/2011 13:25 AUDIOLOGY TECHNICIAN Subjective Pain Symptoms : No CHAPIS DAVALOS - 12/21/2011 13:25 AUDIOLOGY TECHNICIAN Dependent Habits Tobacco Use/Currently Using : No Exposure to Tobacco Smoke : Other: never Smoking Status : Never smoker CHAPIS DAVALOS - 12/21/2011 13:25 AUDIOLOGY TECHNICIAN Tobacco Use Grid Other Tobacco Frequency : non CHAPIS DAVALOS - 12/21/2011 13:25 AUDIOLOGY TECHNICIAN Caffeine Use Grid Caffeine Use : Current Type : Soft drinks Frequency : Daily CHAPIS DAVALOS - 12/21/2011 13:25 AUDIOLOGY TECHNICIAN Allergy Allergies (Active) NKA Estimated Onset Date: Unspecified ; Created By: CECIL ALEGRIA LPN; Reaction Status: Active ; Category: Drug ; Substance: NKA ; Type: Allergy ; Updated By: CECIL ALEGRIA LPN; Reviewed Date: 11/13/2011 15:27 AUDIOLOGY TECHNICIAN Source: [facility] POWERCHART Document Id: [id number] AUDIOLOGY TECHNICIAN!22 OLOGY TECHNICIAN documented in this encounter Plan of Treatment Upcoming Encounters Date Type Specialty Care Team Description 08/17/2022 Procedure visit Neurology Marina Winter M.D., M.P.H. [address] [place], [place] [phone] (Wo rk) Scheduled Procedures Name Priority Associated Diagnoses Date/Time LIFT THIGH Excessive And Redundant Skin And Subcutaneous Tissue documented as of this encounter Visit Diagnoses Not on filedocumented in this encounter Additional Health Concerns Assessment Noted Time PHQ-9 Depression Total Score: 13 11/13/2011 1:58 PM CS T documented as of this encounter
--- OUTSIDE RECORDS SUMMARY | 2022-07-24 15:19 | XMS_ITS | Encounter Summary ---
:[address] [facility] Address [address] [place] [address] Care Team Providers Name Role Phone Unavailable Primary Care Provider Unavailable Encounter Details Date Type Department Care Team Description 09/20/2012 Hospital Encounter HX [facility] Sulema Gómez [...] How often do you attend uatsdin or holiness Never 07/04/2019 services? 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 - 09/20/2012 4:36 PM CST [id number] CHIEF COMPLAINT / REASON FOR VISIT Abdominal care. HISTORY OF PRESENT ILLNESS Maria Alejandra is a 27-year-old 4, para 3 who called complaining of cramping to severe abdominal pain like nothing she has had with any of her previous pregnancies. She was asked to come in for an hCGtiter and the hCG titer did show a value of 2600 and therefore the patient was asked to come in for a vaginal ultrasound. Vaginal ultrasound did show an intrauterine gestational sac and a yolk sac, however a pole wasnot appreciated. IMPRESSION / REPORT / PLAN Intrauterine . Plan is for the patient to return for her scheduled visit, at which time we will proceed with a sonogram to ensure viability but she is reassured that her cramping is not anything to be worried about and we did discuss the possibility that this could be because of scar tissue following her C-sections caused by uterine enlargement. The patient was comfortable with this recommendation and willkeep her scheduled appointment. Sulema Call M.D./more Electronically Signed By: SULEMA CALL MD On: 09/24/2012 08:03 AM Source: [facility] MHSDOLBEYNONRADSYS Document Id: [id number] O JOURNALIST documented in this encounter Miscellaneous Notes Miscellaneous - Conversion, Historical Provider Ser - 09/20/2012 4:41 PM VIDEO JOURNALIST Adult Textile Converter Intake/History Adult Textile Converter Intake/History Entered On: 09/20/2012 16:43 VIDEO JOURNALIST Performed On: 09/20/2012 16:41 VIDEO JOURNALIST by JOSE CARLOS MIKE Intake Chief Complaint : NOB 4 extreme cramping LMP Date : `2 Systolic Blood Pressure : 120mmHg Diastolic Blood Pressure : 70mmHg NIBP Mean : 87mmHg BP Location : Left upper extremity Blood Pressure Cuff Size : Large JOSE CARLOS MIKE - 09/20/2012 16:41 VIDEO JOURNALIST Subjective Pain Symptoms : No JOSE CARLOS MIKE - 09/20/2012 16:41 VIDEO JOURNALIST Dependent Habits Tobacco Use/Currently Using : No Exposure to Tobacco Smoke : Other: never Smoking Status : Never smoker JOSE CARLOS MIKE 09/20/2012 16:41 VIDEO JOURNALIST Tobacco Use Grid Other Tobacco Frequency : never JOSE CARLOS MIKE - 09/20/2012 16:41 VIDEO JOURNALIST Caffeine Use Grid Caffeine Use : Current Type : Soft drinks Frequency : Daily JOSE CARLOS MIKE - 09/20/2012 16:41 VIDEO JOURNALIST Allergy Allergies (Active) NKA Estimated Onset Date: Unspecified ; Created By: CECIL ALEGRIA LPN; Reaction Status: Active ; Category: Drug ; Substance: NKA ; Type: Allergy ; Updated By: CECIL ALEGRIA LPN; Reviewed Date: 09/10/2012 14:36 VIDEO JOURNALIST Source: [facility] [employer] Document Id: [id number] documented in this encounter Plan of Treatment Upcoming Encounters Date Type Specialty Care Team Description 08/17/2022 Procedure visit Neurology Marina Winter M.D., M.P.H. [address] [phone] (Wo rk) Scheduled Procedures Name Priority Associated Diagnoses Date/Time LIFT THIGH Excessive And Redundant Skin And Subcutaneous Tissue documented as of this encounter Visit Diagnoses Not on filedocumented in this encounter Additional Health Concerns Assessment Noted Time PHQ-9 Depression Total Score: 17 05/07/2012 1:10 PM CD T documented as of this encounter
--- OUTSIDE RECORDS SUMMARY | 2022-07-24 15:19 | XMS_ITS | Encounter Summary ---
:1985 Author Organization [facility] Address [address] [place] [address] Care Team Providers Name Role Phone Unavailable Primary Care Provider Unavailable Encounter Details Date Type Department Care Team Description 03/01/2012 Hospital Encounter [facility] Lexii French, P.A.-C., P.A. [address] [place], [place] [phone] (Wo rk) Social History [...] How often do you attend nondenominational or uatsdin Never 07/04/2019 services? 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 - 03/09/2012 8:10 AM CDT Results Notification Document Contains Addenda Addendum by TOÑO FRAGA on 11 Mar 2012 09:28:00 CDT Lexii Pineda Spoke with patient last week. patient was notified of results. From: LEXII MINOR To: TOÑO FRAGA Sent: 03/09/2012 08:10:23 CDT ! Show up: 03/09/2012 13:10:23 [facility] Subject: Results Notification Actions: Notify patient of results Source: [facility] POWERCHART Document Id: [id number] Electronically signed by Conversion, [facility] Drying Unit Felting Machine Operator [id number] at 04/08/2017 8:23 AM CDT documented in this encounter Plan of Treatment Upcoming Encounters Date Type Specialty Care Team Description 08/17/2022 Procedure visit Neurology Marina Winter M.D., M.P.H. [address] [phone] (Wo rk) Scheduled Procedures Name Priority Associated Diagnoses Date/Time LIFT THIGH Excessive And Redundant Skin And Subcutaneous Tissue documented as of this encounter Procedures Procedure Name Priority Date/Time Associated Diagnosis Comme nts NGONORR RNA SRC Routine 03/01/2012 4:33 PM Result s for this CDT procedure are i n the results section. NGONORR AMP RNA Routine 03/01/2012 4:33 PM Result s for this CDT procedure are i n the results section. C TRACH RNA SRC Routine 03/01/2012 4:33 PM Result s for this CDT procedure are i n the results section. C TRACH RNA Routine 03/01/2012 4:33 PM Results f or this CDT procedure are i n the results section. TEST, U Routine 03/01/2012 4:33 PM Resu lts for this CDT procedure are i n the results section. documented in this encounter Results HX-Ngonorr amp RNA (03/01/2012 4:33 PM CDT) athologist Signature NRodrigo leon, Negative POWERCHART Misc, Amplified RNA Specimen (Source) Anatomical Collection Method Collection Time Re ceived Time Location / / Volume Laterality 03/01/2012 4:33 PM CDT Narrative POWERCHART - 03/04/2012 4:52 PM CDT Test Performed by: [facility] [address], [place] [address] Snipper: Tara Vargas, Ph. D. Lexii Minor P.A.-C., P.A. LAB HISTORICAL ORDERS Performing Organization Address City/State/ZIP Code Phon e Number POWERCHART HX-Ngonorr RNA Src (03/01/2012 4:33 PM CDT) athologist Signature Specimen urine POWERCHART Specimen (Source) Anatomical Collection Method Collection Time Re ceived Time Location / / Volume Laterality 03/01/2012 4:33 PM CDT Lexii Minor P.A.-C., P.A. LAB HISTORICAL ORDERS Performing Organization Address City/State/ZIP Code Phon e Number POWERCHART HX-C Trach RNA (03/01/2012 4:33 PM CDT) [facility] gist Method Time Signature Chlamydia Negative POWERCHART trachomatis amplified RNA Specimen (Source) Anatomical Collection Method Collection Time Re ceived Time Location / / Volume Laterality 03/01/2012 4:33 PM CDT Lexii Minor P.A.-C., P.A. LAB HISTORICAL ORDERS Performing Organization Address City/State/ZIP Code Phon e Number POWERCHART HX-C Trach RNA Src (03/01/2012 4:33 PM CDT) athologist Signature Specimen urine POWERCHART Specimen (Source) Anatomical Collection Method Collection Time Re ceived Time Location / / Volume Laterality 03/01/2012 4:33 PM CDT Lexii Minor P.A.-C., P.A. LAB HISTORICAL ORDERS Performing Organization Address City/State/ZIP Code Phon e Number POWERCHART Test, Qualitative, Urine (03/01/2012 4:33 PM CDT) [facility] gist Method Time Signature HXBeta-hCG Negative POWERCHART Qualitative Urine Specimen (Source) Anatomical Collection Method Collection Time Re ceived Time Location / / Volume Laterality Urine 03/01/2012 4:33 PM CDT Lexii Minor P.A.-C., P.A. LAB URINE ORDERABLES Performing Organization Address City/State/ZIP Code Phon e Number POWERCHART documented in this encounter Visit Diagnoses Not on filedocumented in this encounter Additional Health Concerns Assessment Noted Time PHQ-9 Depression Total Score: 13 11/13/2011 1:58 PM CS T documented as of this encounter
--- OUTSIDE RECORDS SUMMARY | 2022-07-24 15:19 | XMS_ITS | Encounter Summary ---
:1985 Author Organization [facility] Address [address] [place] [address] Care Team Providers Name Role Phone Unavailable Primary Care Provider Unavailable Encounter Details Date Type Department Care Team Description 10/08/2012 Hospital Encounter [facility]X [facility] Samir Gómez M.D. Social History Tobacco Use Types [...] How often do you attend religion or shinto Never 07/04/2019 services? 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 - 10/08/2012 9:21 AM CST NOB education/intake appt Individual consult for NOB intake and education. Please refer to ACOG form. Subjective:H/O anxiety/depression with meds in past. Voices interest in restarting medications. Denies thoughts of hurting self/others. States she can wait to address with MD at NOB visit next week. Denies other questions or concerns. Objective: G__4__; P_2___; LMP:_08/13/12___; EDC:__05/19/13__; Height:_163.4cm___; Pregravid Wt:129.4kg____; BMI:_48__; Suggested Wt gain:__15#__ Lead Screen:neg Teaching Method: ___x_Verbal discussion; _x___Printed materials; ____Demonstration Readiness to Learn: ___x_Accepting; ____Low interest; ____Refuse; ____Unable to learn at this time (barriers) Stages of Behavior Change: ____Pre-comtemplation; ____Contemplation; ____Preparation; ___x_Action; ____Maintenance Outcomes and Reinforcement: ___x__Verbalizes understanding; ____Needs Reinforcement Plan: x___Instructed/reviewed: weight gain recommendation/exercise/food safety issues//caffeine/fish ___Public Health Referral; _x__WIC __x_Dietitian Referral d/t_BMI>29; previous GDM __x_Follow-up with MD at scheduled appt., earlier if needed __x_[facility] Recommendations signed and witnessed Recommendations: Encouraged to call with questions or concerns. Offer appt with MD to address medication. Encouragedto keep open line of communication with MD re: emtional status evenif between visits-if thoughts of hurt self/others should get help immediately. Materials Provided: __x_Beginnings: , and Beyond-[facility] __[facility] Folder __x_Maternal Serum Screening-[place] _x_Cystic Fibrosis Carrier Testing-[place] __x_First Trimester Screening for Down Syndrome-[place] __xNeonatal Med Sheet __x_Listeriosis and -[place] _x_A Family Guide to Eating Fish-[facility] Electronically Signed By: RADHA RHOADES On: 10/08/2012 09:25 AM Source: [employer] Document Id: [id number] 'S LEATHER DRESS BELT MAKER documented in this encounter Miscellaneous Notes Miscellaneous - Radha Rhoades RCiera - 10/08/2012 8:32 AM CST Adult Tools Administrator Intake/History Adult Tools Administrator Intake/History Entered On: 10/08/2012 8:49 MEN'S LEATHER DRESS BELT MAKER Performed On: 10/08/2012 8:32 MEN'S LEATHER DRESS BELT MAKER by RADHA RHOADES Intake Chief Complaint : nob education/intake appt LMP:08/13/12 EDC:05/19/13 Height : 163.4cm(Converted to: 5ft 4inch(es), 64.33inch(es)) Actual Weight : 129.4kg(Converted to: 285lb 4oz) Dosing Weight Clinic : 129.40kg Clinic BSA : 2.42 Body Mass Index : 48.47kg/m2 RADHA RHOADES - 10/08/2012 8:32 MEN'S LEATHER DRESS BELT MAKER Subjective Pain Symptoms : No RADHA RHOADES - 10/08/2012 8:32 MEN'S LEATHER DRESS BELT MAKER Dependent Habits Tobacco Use/Currently Using : No Exposure to Tobacco Smoke : Other: never Smoking Status : Never smoker RADHA RHOADES - 10/08/2012 8:32 MEN'S LEATHER DRESS BELT MAKER Tobacco Use Grid Other Tobacco Frequency : never RADHA RHOADES - 10/08/2012 8:32 MEN'S LEATHER DRESS BELT MAKER Caffeine Use Grid Caffeine Use : Current Type : Soft drinks Frequency : Daily RADHA RHOADES - 10/08/2012 8:32 MEN'S LEATHER DRESS BELT MAKER Allergy Allergies (Active) NKA Estimated Onset Date: Unspecified ; Created By: CECIL ALEGRIA LPN; Reaction Status: Active ; Category: Drug ; Substance: NKA ; Type: Allergy ; Updated By: CECIL ALEGRIA LPN; Reviewed Date: 09/10/2012 14:36 MEN'S LEATHER DRESS BELT MAKER Source: [facility] 'Rock' Your PaperCHART Document Id: [id number] 'S LEATHER DRESS BELT MAKER documented in this encounter Plan of Treatment Upcoming Encounters Date Type Specialty Care Team Description 08/17/2022 Procedure visit Neurology Marina Winter M.D., M.P.H. [address] [place], [place] [phone] (Wo rk) Scheduled Procedures Name Priority Associated Diagnoses Date/Time LIFT THIGH Excessive And Redundant Skin And Subcutaneous Tissue documented as of this encounter Procedures Procedure Name Priority Date/Time Associated Comments Diagnosis BACTERIAL CULTURE, Routine 10/08/2012 10:02 Resul ts for this AEROBIC, URINE AM MEN'S LEATHER DRESS BELT MAKER procedure are in the results section. URINALYSIS, ROUTINE Routine 10/08/2012 9:55 AM Re sults for this MEN'S LEATHER DRESS BELT MAKER procedure are i n the results section. URINE MICROSCOPIC Routine 10/08/2012 9:55 AM Resu lts for this MEN'S LEATHER DRESS BELT MAKER procedure are i n the results section. HXZZORDERS Routine 10/08/2012 9:47 AM Results f or this MEN'S LEATHER DRESS BELT MAKER procedure are i n the results section. ABO GROUPING, B Routine 10/08/2012 9:47 AM Result s for this MEN'S LEATHER DRESS BELT MAKER procedure are i n the results section. PROFILE II Routine 10/08/2012 9:47 AM Re sults for this WITHOUT CBC, B/SERUM MEN'S LEATHER DRESS BELT MAKER procedu re are in the results section. AUTOMATED Routine 10/08/2012 9:47 AM Results f or this DIFFERENTIAL, B MEN'S LEATHER DRESS BELT MAKER procedure ar e in the results section. CBC WITH Routine 10/08/2012 9:47 AM Results f or this DIFFERENTIAL, B MEN'S LEATHER DRESS BELT MAKER procedure ar e in the results section. ANTIBODY SCREEN, B Routine 10/08/2012 9:47 AM Res ults for this MEN'S LEATHER DRESS BELT MAKER procedure are i n the results section. documented in this encounter Results (ABNORMAL) Bacterial Culture, Aerobic, Urine (10/08/2012 10:02 AM MEN'S LEATHER DRESS BELT MAKER) Analysis Performed At Patho logist Time Signature Bacterial (POSITIVE POWERCHART Culture, ) Aerobic, Urine Comment: Streptococcus agalactiae (Group B Strep) isolates that are Sensitive to Erythromycin should be treated as Resist ant, and Erythromycin should NOT be used as a drug of choice for treatment per [employer] ux Technical Bulletin. HXPre GNR POWERCHART HXPre GPC POWERCHART Comment: <10,000 cfu/mL Gram Negative Rods <10,000 cfu/mL Gram Positive Cocci No further work-up. HXFinal GNR POWERCHART HXFinal GPC POWERCHART Comment: <10,000 cfu/mL Gram Negative Rods <10,000 cfu/mL Gram Positive Cocci No further work-up. Specimen (Source) Anatomical Collection Method Collection Time Re ceived Time Location / / Volume Laterality Urine, Clean 10/08/2012 10:02 Catch AM MEN'S LEATHER DRESS BELT MAKER Comment: P Samir Call M.D. LAB MICROBIOLOGY - GENERAL O RDERABLES Performing Organization Address [facility] Phon e Number POWERCHART Urine Microscopic (10/08/2012 9:55 AM MEN'S LEATHER DRESS BELT MAKER) [facility] Method Time Signature HXUr WBC 0-5 0 - 2 POWERCHART Red Blood Cell 0-3 0 - 3 POWERCHART Clump, Urine HXUr Epithelial Many 0 - 5 POWERCHART HXUr Bacteria Moderate POWERCHART Crystals None Seen None Seen POWERCHART HX Ur Casts None Seen None Seen POWERCHART HX MUCOUS Moderate POWERCHART THREADS Specimen Anatomical Collection Method Collection Time Receive d Time (Source) Location / / Volume Laterality Urine 10/08/2012 9:55 AM 2 9:55 MEN'S LEATHER DRESS BELT MAKER AM MEN'S LEATHER DRESS BELT MAKER Samir Call M.D. LAB URINE ORDERABLES Performing Organization Address [facility] Phon e Number POWERCHART Urinalysis, Routine (10/08/2012 9:55 AM MEN'S LEATHER DRESS BELT MAKER) [facility] Method Time Signature Source Clean Void POWERCHART Urine HXUr Color STRAW POWERCHART Glucose Negative Negative POWERCHART HXBILIRUBIN Negative Negative POWERCHART Ketones, QL(U) Trace Negative POWERCHART Specific >=1.030 >=1.030 POWERCHART [place], POCT, U pH, POCT, Urine 6.0 8.5 POWERCHART Protein, Ur, Dip Negative Negative POWERCHART Urobilinogen 0.2 1.0 POWERCHART HXNITRITE Negative Negative POWERCHART HXBLOOD Negative Negative POWERCHART Leukocyte Negative Negative POWERCHART Esterase Specimen (Source) Anatomical Collection Method Collection Time Re ceived Time Location / / Volume Laterality Urine 10/08/2012 9:55 AM MEN'S LEATHER DRESS BELT MAKER Samir Call M.D. LAB URINE ORDERABLES Performing Organization Address [facility]/State/ZIP Code Phon e Number POWERCHART Antibody Screen (10/08/2012 9:47 AM MEN'S LEATHER DRESS BELT MAKER) P athologist Signature Antibody Negative POWERCHART Screen Comment: Test Performed by: [address] [address] Lab oratory Director: Federico Eastman III, M.D. Specimen (Source) Anatomical Collection Method Collection Time Re ceived Time Location / / Volume Laterality 10/08/2012 9:47 AM MEN'S LEATHER DRESS BELT MAKER Samir Call M.D. LAB BLOOD BANK TEST ORDERABL ES Performing Organization Address City/[facility] Code Phon e Number POWERCHART Grouping and Rh-Peterson FLIP, see #[id number] (10/08/2012 9:47 AM MEN'S LEATHER DRESS BELT MAKER) [facility] gist Method Time Signature HX Grouping A Positive POWERCHART and Rh Specimen (Source) Anatomical Collection Method Collection Time Re ceived Time Location / / Volume Laterality 10/08/2012 9:47 AM MEN'S LEATHER DRESS BELT MAKER Samir Call M.D. LAB BLOOD BANK TEST ORDERABL ES Performing Organization Address City/[facility] Phon e Number POWERCHART (ABNORMAL) Automated Differential (10/08/2012 9:47 AM MEN'S LEATHER DRESS BELT MAKER) Patholo gist Method Time Signature Neutro % 71.4 (H) 44.0 - POWERCHART 69.0 Lymphocytes % 19.6 18.0 - POWERCHART 44.1 HX [place] % 7.2 5.0 - 11.7 POWERCHART HX Eos % 1.6 0.8 - 3.1 POWERCHART HX Baso % 0.2 0.2 - 1.4 POWERCHART Absolute 5.98 1.70 - POWERCHART Neutrophils 7.00 109L Lymphocytes 1.64 0.90 - POWERCHART 2.90 X109L Monocytes 0.60 0.30 - POWERCHART 0.90 X109L Eosinophils 0.13 0.05 - POWERCHART 0.50 X109L Absolute 0.02 0.00 - POWERCHART Basophil 0.30 X109L Specimen Anatomical Collection Method Collection Time Receive d Time (Source) Location / / Volume Laterality Blood 10/08/2012 9:47 AM 2 9:47 MEN'S LEATHER DRESS BELT MAKER AM MEN'S LEATHER DRESS BELT MAKER Samir Call M.D. LAB BLOOD ADD-ON Performing Organization Address City/[facility]/ZIP Code Phon e Number POWERCHART CBC with Differential (10/08/2012 9:47 AM MEN'S LEATHER DRESS BELT MAKER) athologist [facility] Leukocytes 8.4 3.4 - 10.5 POWERCHART X109L Erythrocytes 4.40 3.90 - 5.03 POWERCHART [id number] Hemoglobin 13.1 12.0 - 15.5 POWERCHART GDL Hematocrit 38.7 34.9 - 44.5 POWERCHART MCV 88.0 82.0 - 98.0 POWERCHART FL HX RDW 12.7 11.9 - 15.5 POWERCHART Platelet Count 257 150 - 450 POWERCHART X109L Specimen (Source) Anatomical Collection Method Collection Time Re ceived Time Location / / Volume Laterality Blood 10/08/2012 9:47 AM MEN'S LEATHER DRESS BELT MAKER Samir Call M.D. LAB BLOOD ADD-ON Performing Organization Address City/[facility] Phon e Number POWERCHART Profile II without CBC/Serum (10/08/2012 9:47 AM MEN'S LEATHER DRESS BELT MAKER) athologist [facility] HBs Antigen, S Negative Negative POWERCHART Comment: Test Performed by: [place] [address] Real Estate Firm Manager: Federico anne III, M.D. Syphilis IgG Ab, S Negative Negative POWERCHART Comment: Test Performed by: [place] [address] Real Estate Firm Manager: Federico anne III, M.D. HX Rubella IgG-[place]eters[place] Positive POWERCHART Comment: -- REFERENCE VALUE -- Negative Test Performed by: [place] [address] Real Estate Firm Manager: Federico anne III, M.D. Specimen (Source) Anatomical Collection Method Collection Time Re ceived Time Location / / Volume Laterality Blood 10/08/2012 9:47 AM MEN'S LEATHER DRESS BELT MAKER Samir Call M.D. LAB BLOOD NON ADD-ON Performing Organization Address City/[facility] Phon e Number POWERCHART HXZZORDERS (10/08/2012 9:47 AM MEN'S LEATHER DRESS BELT MAKER) athologist [facility] HIV-1/-2 Negative Negative POWERCHART Antibody Comment: Negative result does not rule out HIV in fection. If acute HIV-1 infection is suspected in a high-r isk patient, submit plasma specimen for HIV-1 RNA quantifica tion test. If this test is ordered as a follow-up t est to a reactive rapid HIV antibody test result, suppleme ntal testing by Western blot is recommended, even when t his test result is negative. Testing is performed using the [employer] ros Anti-HIV 1+2 chemiluminescence immunoassay. Test Performed by: [place] [address] Real Estate Firm Manager: Federico anne III, M.D. Specimen (Source) Anatomical Collection Method Collection Time Re ceived Time Location / / Volume Laterality Blood 10/08/2012 9:47 AM MEN'S LEATHER DRESS BELT MAKER Samir Call M.D. LAB HISTORICAL ORDERS Performing Organization Address City/State/ZIP Code Phon e Number POWERCHART documented in this encounter Visit Diagnoses Not on filedocumented in this encounter Additional Health Concerns Assessment Noted Time PHQ-9 Depression Total Score: 17 05/07/2012 1:10 PM CD T documented as of this encounter
--- OUTSIDE RECORDS SUMMARY | 2022-07-24 15:19 | XMS_ITS | Encounter Summary ---
:1985 Author Organization [facility] [place] [facility] Address [address] [place] [address] Care Team Providers Name Role Phone Unavailable Primary Care Provider Unavailable Encounter Details Date Type Department Care Team Description 07/26/2011 Hospital Encounter [facility]X [facility] Den Mckinley M.D. [address] [place], [place] [address] (Wo rk) Social History Tobacco Use [...] How often do you attend orthodoxy or buddhism Never 07/04/2019 services? 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 [address] [place] [phone] (Wo rk) Scheduled Procedures Name Priority Associated Diagnoses Date/Time LIFT THIGH Excessive And Redundant Skin And Subcutaneous Tissue documented as of this encounter Visit Diagnoses Not on filedocumented in this encounter Additional Health Concerns Assessment Noted Time PHQ-9 Depression Total Score: 13 02/27/2011 2:40 PM CD T documented as of this encounter
--- OUTSIDE RECORDS SUMMARY | 2022-07-24 15:19 | XMS_ITS | Encounter Summary ---
:1985 Author Organization [facility] Address [address] [place] [address] Care Team Providers Name Role Phone Unavailable Primary Care Provider Unavailable Encounter Details Date Type Department Care Team Description 09/20/2012 Hospital Encounter HX [facility] LAB Samir Call M. D. Social History Tobacco Use Types [...] How often do you attend nondenominational or restorationist Never 07/04/2019 services? 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 [address] [phone] (Wo rk) Scheduled Procedures Name Priority Associated Diagnoses Date/Time LIFT THIGH Excessive And Redundant Skin And Subcutaneous Tissue documented as of this encounter Procedures Procedure Name Priority Date/Time Associated Diagnosis Comme nts EXTRA SST Routine 09/20/2012 3:06 PM Results f or this LONG WALL MINING MACHINE TENDER procedure are i n the results section. BHCG (BETA-HUMAN Routine 09/20/2012 3:06 PM Resul ts for this CHORIONIC LONG WALL MINING MACHINE TENDER procedure are i n GONADOTROPIN), the results SUSAN, S section. documented in this encounter Results EXTRA SST (09/20/2012 3:06 PM LONG WALL MINING MACHINE TENDER) P athologist Signature HXExtra Tube Extra Tube POWERCHART Specimen (Source) Anatomical Collection Method Collection Time Re ceived Time Location / / Volume Laterality Blood 09/20/2012 3:06 PM LONG WALL MINING MACHINE TENDER Samir Call M.D. LAB HISTORICAL ORDERS Performing Organization Address City/[facility] Code Phon e Number POWERCHART bHCG (Beta-Human Chorionic Gonadotropin), Quantitative (09/20/2012 3:06 PM LONG WALL MINING MACHINE TENDER) [facility] gist Method Time Signature Beta-HCG, see report 0.5 - 2.9 POWERCHART Quantitative, MIUML S Comment: During the following values we re found: Approximate gestational age (weeks) ??hC G(mIU/ml) 0.2-1 ?? 5-50 1-2 ?50-500 2-3 ?100-5,000 3-4 ?500-10,000 4-5 ?1,000-50,000 5-6 ?10,000-100,000 6-8 ?15,000-200,000 8-12 ?10,000-100,000 Non- Female ??<0.5-2.90 Male: ??<0.5-2.67 This test has not been validated for fidel or marker studies. Specimen (Source) Anatomical Collection Method Collection Time Re ceived Time Location / / Volume Laterality Blood 09/20/2012 3:06 PM LONG WALL MINING MACHINE TENDER Samir Call M.D. LAB BLOOD ADD-ON Performing Organization Address City/State/ZIP Code Phon e Number POWERCHART documented in this encounter Visit Diagnoses Not on filedocumented in this encounter Additional Health Concerns Assessment Noted Time PHQ-9 Depression Total Score: 17 05/07/2012 1:10 PM CD T documented as of this encounter
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
--- OUTSIDE RECORDS SUMMARY | 2022-07-24 15:19 | XMS_ITS | Encounter Summary ---
:1985 Author Organization [facility] Address [address] [place] [address] Care Team Providers Name Role Phone Unavailable Primary Care Provider Unavailable Encounter Details Date Type Department Care Team Description 01/29/2012 Hospital Encounter HX [facility] Grandalfred, Lizandro Olguin, P.A.-C., P.A. [address] [place], [place] [phone] (Wo rk) Social History [...] often do you attend latter day or islam Never 07/04/2019 services? 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 - 01/29/2012 12:00 AM CDT [id number] Chief complaint today is irregular periods, discuss anxiety and depression. HISTORY OF PRESENT ILLNESS Nancy is a pleasant 26-year-old female here today for the above concerns. First of all, she has had some increasing social stressors, feeling stressed, overwhelmed, with anxiety and depression. She has been on citalopram. She was seen in Same Day Clinic about a month ago, and her citalopram was actually increased from 40 to 60 mg daily. We discussed with her that the recommendations now are not to exceed a dose of 40 mg daily; and therefore will need to either decrease her citalopram back to 40 mg daily and add something with it or consider switching her antidepressants. She is interested in trying a different antidepressant. She has previously used Prozac and Paxil. She does have anxiety along with depression and denies thoughts of harming herself or others. She is a single parent with 3 children. She has had some irregular vaginal bleeding. States that she had a normal period on 01/02. This lasted for 3 days. Then, on 01/10, had another 3 days of light bleeding, and on 01/24, had 3 days of bleeding as well. She denies any pelvic pain, cramping, vaginal discharge or other concerns. She did do a home urine test about 2 weeks ago, which was negative. She is currently not using any means of contraception. She is not desiring any means of contraception at this time. She has not had change in partner, but she does request STI screening today. CURRENT MEDICATIONS Reviewed EMR dated 01/28 and no changes. ALLERGIES No known drug allergies. VITAL SIGNS Reviewed EMR dated 01/28 and no changes. PHYSICAL EXAM GENERAL APPEARANCE: Pleasant female in no acute distress. Neatly groomed, appropriately dressed. Mood and affect are appropriate. Maintains good eye contact. Normal thought process, speech pattern and insight. SKIN: Warm and dry without rashes. HEART: Regular rate and rhythm without murmur. LUNGS: Clear throughout without wheezes, rubs or crackles. Abdomen is soft. Bowel sounds present. PELVIC EXAM: Deferred per patient request. IMPRESSION/REPORT/PLAN 1) Anxiety and depression. We cannot exceed a dose of 40 mg daily on the citalopram, and 40 mg has not been effective in controlling her symptoms. Will therefore taper her off the citalopram over the next couple weeks and then start sertraline 25 mg daily for 1 week and then increase to 50 mg daily thereafter. We did discuss increasing up to 100 mg daily if needed. She does have Atarax available to use as needed for anxiety. She states that she has only really taken 1 of these, and I think it is fine to use this p.r.n. I will see her in 1 month for recheck. Symptoms to warrant more urgent evaluation discussed. 2) Irregular menstrual bleeding. PLAN: A urine is negative. Urine GC, Chlamydia is pending. She does not desire means of contraception at this time, but we did discuss a course of Provera to stimulate a withdrawal bleed and proceed from there to see if cycles become more regular after that. She will be notified of GC, Chlamydia results when available and will otherwise follow up as needed Lexii Minor P.A.-C. nathalia Electronically Signed By: LEXII MINOR On: 02/02/2012 04:01 PM Source: [facility] MHSDOLBEYNONRADSYS Document Id: [id number] documented in this encounter Miscellaneous Notes Miscellaneous - Lexii Minor P.A.-C., P.A. - 01/29/2012 5:47 PM CDT Ambulatory Patient Summary [facility] [address] [place], [place] [id number] Visit Information Name: NANCY ROBINS Current Date: 01/29/2012 17:47:02 Physicians Attending Provider: LEXII MINOR Primary Care Provider: PCP, UNASSIGNED Your Medications Here is a list of your medications. It is important to take your medications as directed. Use a pillbox or chart to help remind you to take your medications. Please let your doctor or nurse know if you have problems taking your medications. Medication/Strength Dose Route Frequency Indications/Special Instructions/Comments sertraline (sertraline 50 mg oral tablet) 50 mg Oral once a day start 1/2 tab po daily for first week then 1 tab daily as directed for anxiety/depression hydrOXYzine (Atarax 25 mg oral tablet) 1-2 tabs Oral three times a day as needed for Anxiety citalopram (Celexa 40 mg oral tablet) 60 mg Oral once a day naproxen (Naprosyn 500 mg oral tablet) 500 [...] Problem List Problem Status Onset Comments Endometriosis of Pelvic Peritoneum Active 07/25/2004 Migraine headache Active 08/23/2010 Gestational diabetes Active 08/02/2010 LMP 05/01/10, EDC 03/07/2011 Gestational diabetes Active 08/02/2010 s/p repeat section 02/19/2011 Tattoo Active Previous Section, Antepartum Condition or Complication Active 05/01/2010 s/p repeat section 02/19/2011 LMP 05/01/10, EDC 03/07/2011 Genital herpes Active 02/19/2011 recurrent genital HSV Major Depressive Disorder, Recurrent Episode, Unspecified Degree Active 02/27/2011 depression, recurrent. Your Recommendations We want to make sure you get the tests, immunizations, and guidance you need to stay healthy. Here is a customized list of recommendations, based on information we have in your medical record. Your doctor may have additional recommendations for you, based on your personal medical history and risk factors. You can help us by calling us to make an appointment when you are due for your tests. Additional information regarding recommendations: Test/Treatment Last Done Next Due Additional Information Depression: PHQ-9 every 6 months 11/13/2011 05/14/2012 Health Assessment every 1 year 01/29/2012 Screening Pap Smear every 3 years Women 21-65 08/15/2011 08/14/2014 Checks for signs of cancer of the cervix. Lipid Panel every 5 years Age 20-75 08/15/2011 08/13/2016 Checks blood for good (HDL) and bad (LDL) cholesterol. Know your numbers, they are one indicator of your risk for heart attack and stroke. Vaccine: Tetanus every 10 years 01/17/2009 01/15/2019 Immunization to help prevent you from getting the serious disease Tetanus (Lockjaw). Your Upcoming Appointments Date Time Location Reason Provider No Appointments found Your Goals/Additional instructions: Source: [facility] POWERCHART Document Id: [id number] Miscellaneous - Lexii Minor P.A.-C., P.A. - 01/29/2012 5:47 PM CDT Ambulatory Depart Summary [address] [address] Visit Information Name: NANCY ROBINS Visit Date: 01/29/2012 17:47:01 Attending Provider: LEXII MINOR Primary Care Provider: PCP, UNASSIGNED NANCY ROBINS has been given the following list of medications: Your Medications It is important to take your medications as directed. Use a pill box or chart to help remind you to take your medications. Please let your doctor or nurse know if you have problems taking your medications. Medication/Strength Dose Route Frequency Indications/Special Instructions/Comments sertraline (sertraline 50 mg oral tablet) 50 mg Oral once a day start 1/2 tab po daily for first week then 1 tab daily as directed for anxiety/depression hydrOXYzine (Atarax 25 mg oral tablet) 1-2 tabs Oral three times a day as needed for Anxiety citalopram (Celexa 40 mg oral tablet) 60 mg Oral once a day naproxen (Naprosyn 500 mg oral tablet) 500 [...] provider for clarification. Additional Information: Source: [facility] PURE BioscienceCHART Document Id: [id number] Miscellaneous - Conversion, Historical Provider Ser - 01/29/2012 4:39 PM CDT Adult Sap Security Consultant Intake/History Adult Sap Security Consultant Intake/History Entered On: 01/29/2012 16:42 CDT Performed On: 01/29/2012 16:39 CDT by TOÑO FRAGA Intake Chief Complaint : Had 3 periods this month. Chlymidia, test. Med check Temperature Oral : 36.6C(Converted to: 97.9DegF) Peripheral Pulse Rate : 74/min Respiratory Rate : 18/min Heart Rhythm : Regular Systolic Blood Pressure : 94mmHg Diastolic Blood Pressure : 60mmHg NIBP Mean : 71mmHg BP Location : Right upper extremity Blood Pressure Cuff Size : Large Actual Weight : 117.6kg(Converted to: 259lb 4oz) Weight Source : Standing scale Dosing Weight Clinic : 117.60kg SAVITA FRAGAA - 01/29/2012 16:39 CDT General Info Information Given By : Patient Preferred Communication Mode : Verbal Languages : Portuguese SAVITA FRAGAA - 01/29/2012 16:39 CDT Subjective Pain Symptoms : No SAVITA FRAGAA 01/29/2012 16:39 CDT Dependent Habits Tobacco Use/Currently Using : No Exposure to Tobacco Smoke : Other: never Smoking Status : Never smoker PHILLY TOÑO 01/29/2012 16:39 CDT Tobacco Use Grid Other Tobacco Frequency : non SAVITA FRAGAA 01/29/2012 16:39 CDT Caffeine Use Grid Caffeine Use : Current Type : Soft drinks Frequency : Daily PHILLYTOÑO 01/29/2012 16:39 CDT Allergy Allergies (Active) NKA Estimated Onset Date: Unspecified ; Created By: CECIL ALEGRIA LPN; Reaction Status: Active ; Category: Drug ; Substance: NKA ; Type: Allergy ; Updated By: CECIL ALEGRIA LPN; Reviewed Date: 01/29/2012 16:38 CDT Source: [facility] POWERCHART Document Id: [id number] documented in this encounter Plan of Treatment Upcoming Encounters Date Type Specialty Care Team Description 08/17/2022 Procedure visit Neurology Marina Winter M.D., M.P.H. [address] [place] [phone] (Wo rk) Scheduled Procedures Name Priority Associated Diagnoses Date/Time LIFT THIGH Excessive And Redundant Skin And Subcutaneous Tissue documented as of this encounter Procedures Procedure Name Priority Date/Time Associated Diagnosis Comme nts NGONORR RNA SRC Routine 01/29/2012 5:51 PM Result s for this CDT procedure are i n the results section. NGONORR AMP RNA Routine 01/29/2012 5:51 PM Result s for this CDT procedure are i n the results section. C TRACH RNA SRC Routine 01/29/2012 5:51 PM Result s for this CDT procedure are i n the results section. C TRACH RNA Routine 01/29/2012 5:51 PM Results f or this CDT procedure are i n the results section. TEST, U Routine 01/29/2012 5:51 PM Resu lts for this CDT procedure are i n the results section. documented in this encounter Results HX-Ngonorr amp RNA (01/29/2012 5:51 PM CDT) athologist Signature NRodrigo leon, Positive POWERCHART Misc, Amplified RNA Specimen (Source) Anatomical Collection Method Collection Time Re ceived Time Location / / Volume Laterality 01/29/2012 5:51 PM CDT Narrative POWERCHART - 02/01/2012 3:06 PM CDT Test Performed by: [facility] [address], [place] [address] Charge Preparation Technician: Tara Vargas, Ph. D. Lexii Minor P.A.-C., P.A. LAB HISTORICAL ORDERS Performing Organization Address City/State/ZIP Code Phon e Number POWERCHART HX-Ngonorr RNA Src (01/29/2012 5:51 PM CDT) athologist Signature Specimen urine POWERCHART Specimen (Source) Anatomical Collection Method Collection Time Re ceived Time Location / / Volume Laterality 01/29/2012 5:51 PM CDT Lexii Marie.A.-C., P.A. LAB HISTORICAL ORDERS Performing Organization Address [facility] Code Phon e Number POWERCHART HX-C Trach RNA (01/29/2012 5:51 PM CDT) [facility] Method Time Signature Chlamydia Negative POWERCHART trachomatis amplified RNA Specimen (Source) Anatomical Collection Method Collection Time Re ceived Time Location / / Volume Laterality 01/29/2012 5:51 PM CDT Lexii Marie.A.-C., P.A. LAB HISTORICAL ORDERS Performing Organization Address [facility] Code Phon e Number POWERCHART HX-C Trach RNA Src (01/29/2012 5:51 PM CDT) athologist Signature Specimen urine POWERCHART Specimen (Source) Anatomical Collection Method Collection Time Re ceived Time Location / / Volume Laterality 01/29/2012 5:51 PM CDT Lexii Marie.A.-C., P.A. LAB HISTORICAL ORDERS Performing Organization Address City/[facility] Code Phon e Number POWERCHART Test, Qualitative, Urine (01/29/2012 5:51 PM CDT) [facility] Method Time Signature HXBeta-hCG Negative POWERCHART Qualitative Urine Specimen (Source) Anatomical Collection Method Collection Time Re ceived Time Location / / Volume Laterality Urine 01/29/2012 5:51 PM CDT Lexii Marie.A.-C., P.A. LAB URINE ORDERABLES Performing Organization Address City/[facility]/ZIP Code Phon e Number POWERCHART documented in this encounter Visit Diagnoses Not on filedocumented in this encounter Additional Health Concerns Assessment Noted Time PHQ-9 Depression Total Score: 13 11/13/2011 1:58 PM CS T documented as of this encounter
--- OUTSIDE RECORDS SUMMARY | 2022-07-24 15:19 | XMS_ITS | Encounter Summary ---
:1985 Author Organization [facility] Address [address] [place] [address] Care Team Providers Name Role Phone Unavailable Primary Care Provider Unavailable Encounter Details Date Type Department Care Team Description 11/13/2011 Hospital Encounter HX [facility] Grandalfred, Lizandro Olguin, P.A.-C., P.A. [address], [place] [phone] (Wo rk) Social History [...] How often do you attend advent or hinduism Never 07/04/2019 services? 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 - 11/13/2011 12:00 AM CST [id number] CHIEF COMPLAINT/REASON FOR VISIT Discuss control. HISTORY OF PRESENT ILLNESS Maria Alejandra is a 26-year-old female who presents today wishing to discuss contraception. She is on Depo-Provera and she is actually due for Depo-Provera injection today. She is not certain that she wishes to continue this. She feels as though she has had weight gain from this. It is, however, very effective in controlling her endometriosis and dysmenorrhea. She is wondering about other options, specifically NuvaRing. She does not desire oral contraception. She does have a history of migraine headaches that seem to exacerbate with cycles. She has noted increased headaches with oral contraception in the past, however states that this was many years ago. We did discuss that use of the NuvaRing does contain estrogen/progesterone and that she will have cycles with this which could potentially exacerbate her dysmenorrhea, endometriosis, and migraines. She was given printed information on various options of contraception, including the NuvaRing, Mirena IUD, and Implanon. She does not desire any permanent measures at this point and she wishes to have further children in the future. She does not desire in the immediate future however. After further discussion, she is still interested in trying the NuvaRing. She has not had a period as she is on Depo-Provera. A urine today is negative. She does have a history of chlamydia which has been treated. CURRENT MEDICATIONS Reviewed EMR dated 11/13/2011 and no changes. ALLERGIES No known drug allergies. VITAL SIGNS Reviewed EMR dated 11/13/2011 and no changes. PHYSICAL EXAM GENERAL APPEARANCE: Pleasant, overweight female in no acute distress. Mood and affect are appropriate. Maintains good eye contact. More than 15 minutes were spent in discussion and counseling regarding options, risks, and benefits of various contraception as above. Formal exam, otherwise, not performed. LABORATORY: Urine negative. IMPRESSION/REPORT/PLAN Contraception counseling and management. PLAN: As she is concerned about weight gain associated with the Depo-Provera, she desires other options of contraception as above. She would like to try NuvaRing and was given a prescription for this. She will start this today and remove in 3 weeks. If she has increased cramping, dysmenorrhea, and migraines, I do think it would be reasonable for her to try other options of contraception, and I think she would be a good candidate for a Mirena IUD; although she does have a history of chlamydia. She is currently in a monogamous relationship. Printed information on the various methods were discussed. If she desires to proceed with either Mirena IUD or Implanon contraception, we will arrange for this at the end of her menstrual cycle. Otherwise, to follow up on an as-needed basis. Her questions were answered to her satisfaction. Lexii Minor P.A.-C. kks Electronically Signed By: LEXII MINOR On: 11/17/2011 02:30 PM Source: [facility] MHSDOLBEYNONRADSYS Document Id: [id number] [employer]AL [employer]ING LEAD documented in this encounter Miscellaneous Notes Miscellaneous - Helen Blandon L.P.N. 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 Entered On: 11/13/2011 15:30 [employer] Performed On: 11/13/2011 15:27 [employer] LE[employer] by HELEN BLANDON Intake Chief Complaint : consult on control also wants a test Temperature Oral : 37.0C(Converted to: 98.6DegF) Peripheral Pulse Rate : 76/min Respiratory Rate : 22/min (HI) Systolic Blood Pressure : 116mmHg Diastolic Blood Pressure : 70mmHg NIBP Mean : 85mmHg Actual Weight : 113.4kg(Converted to: 250lb 0oz) Dosing Weight Clinic : 113.40kg HELEN BLANDON - 11/13/2011 15:27 D[employer]ITAL MARKETING LEAD General Info Information Given By : Patient Preferred Communication Mode : Verbal Languages : Irish HELEN BLANDON - 11/13/2011 15:27 D[employer]ITAL MARKETING LEAD Subjective Pain Symptoms : No HELEN BLANDON - 11/13/2011 15:27 D[employer]ET[employer] LEAD Dependent Habits Tobacco Use/Currently Using : No Exposure to Tobacco Smoke : Other: never Smoking Status : Never smoker HELEN BLANDON - 11/13/2011 15:27 D[employer]ITAL MARK[employer]ING LEAD Tobacco Use Grid Other Tobacco Frequency : non HELEN BLANDON - 11/13/2011 15:27 D[employer]ITAL MARK[employer]ING LEAD Caffeine Use Grid Caffeine Use : Current Type : Soft drinks Frequency : Daily HELEN BLANDON - 11/13/2011 15:27 D[employer]ING LEAD Allergy Allergies (Active) NKA Estimated Onset Date: Unspecified ; Created By: CECIL ALEGRIA LPN; Reaction Status: Active ; Category: Drug ; Substance: NKA ; Type: Allergy ; Updated By: CECIL ALEGRIA LPN; Reviewed Date: 11/13/2011 15:27 D[employer]ITAL MARKETING LEAD Source: [employer] Document Id: [id number] DIGITAL MARKETING LEAD!29 TAL MARKETING LEAD Miscellaneous - Conversion, Historical Provider Ser - 11/13/2011 1:58 PM 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 [address], [place] [phone] (Wo rk) Scheduled Procedures Name Priority Associated Diagnoses Date/Time LIFT THIGH Excessive And Redundant Skin And Subcutaneous Tissue documented as of this encounter Procedures Procedure Name Priority Date/Time Associated Diagnosis Comme nts TEST, U Routine 11/13/2011 4:19 PM Resu lts for this D[employer]ITAL MARKETING LEAD procedure are i n the results section. documented in this encounter Results Test, Qualitative, Urine (11/13/2011 4:19 PM DIGITAL MARKETING LEAD) [facility] gist Method Time Signature HXBeta-hCG Negative POWERCHART Qualitative Urine Specimen (Source) Anatomical Collection Method Collection Time Re ceived Time Location / / Volume Laterality Urine 11/13/2011 4:19 PM D[employer]ITAL MARKETING LEAD Lexii Minor P.A.-C., P.A. LAB URINE ORDERABLES Performing Organization Address City/State/ZIP Code Phon e Number POWERCHART documented in this encounter Visit Diagnoses Not on filedocumented in this encounter Additional Health Concerns Assessment Noted Time PHQ-9 Depression Total Score: 13 11/13/2011 1:58 PM CS T documented as of this encounter
--- OUTSIDE RECORDS SUMMARY | 2022-07-24 15:19 | XMS_ITS | Encounter Summary ---
:1985 Author Organization [facility] Address [address] [place] [address] Care Team Providers Name Role Phone Unavailable Primary Care Provider Unavailable Encounter Details Date Type Department Care Team Description 08/15/2011 Hospital Encounter [facility]X [facility] Grandalfred, Lizandro Olguin, P.A.-C., P.A. [address], [place] [phone] (Wo rk) Social History [...] How often do you attend mormonism or spiritism Never 07/04/2019 services? 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 - 08/15/2011 12:00 AM CDT [id number] CHIEF COMPLAINT / REASON FOR VISIT Establish care, physical exam, discuss other concerns. HISTORY OF PRESENT ILLNESS The patient is a pleasant 26-year-old female here today to establish care and for a preventive health exam. She does have several concerns today that she would like to address, as follows. First of all, she has a history of migraine headaches and previously had used injectable Imitrex. She has been out of this medication for some time. She finds that, although the Imitrex did take care of her headaches, it made her feel very sleepy and sedated for quite some time. We discussed trying oral Imitrex along with Naprosyn, and she is interested in this. She gets migraines about 2 to 3 times per month. They are, at times, associated with some nausea and light and sound sensitivity. There is a family history of migraines and these are pretty consistent with her previous symptoms. She has not had symptoms in a few weeks. She has also been feeling quite rundown and fatigued. She wonders if this may be just attributed to the fact that she has 2 young children and a [id number] who does not sleep well during the night. She would like to have laboratories done today. She is also requesting STI screening. She has had some slight vaginal discharge, but found that her had been with another woman who apparently is HPV positive. Nancy is interested in being checked for it all. She does have a history of herpes genitalis and has used as-needed antivirals during outbreaks. She is requesting a refill of this. It has been several months since she has had an outbreak. She also is due for her Depo injection. The last Depo was given on May 23, 2011. This has been working well for her and she wishes to continue this. She is also due for a physical exam/Pap smear. GYNECOLOGIC HISTORY: G3, P2, AB, LMP approximately May 2010. She has been on Depo-Provera and does not get menses with this. She has no history of abnormal Pap smears. She is due for a Pap smear, which will be updated today. CURRENT MEDICATIONS Citalopram 40 mg daily. Ibuprofen as needed. ALLERGIES No known drug allergies. IMMUNIZATIONS: Tetanus January 17, 2009. She does agree to an influenza vaccine today. SYSTEMS REVIEW A comprehensive review of systems was obtained and documented on the CVI form. Pertinent positives include some chronic fatigue and she has had chronic problems with weight. She does have depression, which has been controlled. The PHQ-9 score is 11. The remaining systems are otherwise reviewed and negative, except as noted above. PAST MEDICAL / SURGICAL HISTORY 1) Depression and anxiety. 2) Migraines. 3) Obesity. 4) Gestational diabetes. 5) Herpes genitalia. 6) History of chlamydia treated in 2009. 7) C-sections x2 in June 2005 and February 2011. 8) Previous jaw surgery. 9) Tonsillectomy and adenoidectomy. 10) Laparoscopic cholecystectomy in 2005. 11) Laparoscopy with adhesion removal in 2008. 12) Endometriosis with laparoscopy in 1999. SOCIAL HISTORY She is . She has 2 children, daughter age 6 and son age 6 months, and a stepdaughter. She is currently a bxmh-sp-kuda mom. She does not smoke or use tobacco products. No alcohol or illicit drugs. Caffeine is approximately 1 to 2 daily. She does not exercise regularly. She does try to get adequate dietary calcium. FAMILY HISTORY Mother is living and has hypertension. She does not have a lot of contact with her father and paternal family history, but does know there is heart disease, hypertension, hyperlipidemia, diabetes, alcohol abuse, and mental health diagnoses on the paternal side. Brother with substance abuse problems. No family history of breast, ovarian, or colon cancer. No bleeding or clotting disorders. No anesthesia reactions. VITAL SIGNS TEMP: 36.9 degrees C PULSE: 70 RESP RATE: 18/min BLOOD PRESSURE: 112/68 HEIGHT: 165.7 cm WEIGHT: 110.6 kg BMI: 40.28 PHYSICAL EXAM GENERAL: A pleasant white female, obese, in no acute distress. Alert. SKIN: No rashes, lesions or bruising. Seama, warm and dry. EYES: PERRLA. EOM intact. Normal conjunctivae and lids. Wearing corrective lenses. ENT: Tympanic membranes are clear bilaterally. Hearing is grossly intact to soft whisper. Nares are patent. Oral mucosa is moist. Pharynx is nonerythematous. Dentition is in good repair. LYMPH NODES: No cervical, supraclavicular, axillary, or inguinal nodes. THYROID: Smooth, not enlarged. No nodules. BREASTS: Symmetrical without dimpling, retraction, or skin changes. No masses, tenderness, or nipple discharge. PERIPHERAL VESSELS: Strong radial, femoral and pedal pulses bilaterally. HEART: Regular rate and rhythm with normal S1, S2. No murmur, rub or gallop. LUNGS: Clear to auscultation bilaterally without wheezes, rubs, or crackles. Normal respiratory rate and effort. ABDOMEN: Soft and nontender. Exam limited due to body habitus. No appreciable masses or hepatosplenomegaly. Bowel sounds are present. Lower abdominal incision is well healed. PELVIS: Normal external genitalia. Speculum exam reveals healthy appearing vaginal mucosa. The cervix is without discharge or ectopy. A DMITRY wet prep is negative. A thin-prep Pap smear, GC, and chlamydia pending. Bimanual exam without appreciable masses or cervical motion tenderness. Exam is limited due to body habitus. Ovaries are not palpable. SPINE: No vertebral tenderness. EXTREMITIES: No clubbing, cyanosis or edema. Full range of motion. No lower extremity varicosities. MENTAL: Mood and affect are appropriate. She maintains good eye contact. Normal though processes and speech pattern. NEURO: Cranial nerves 2 through 12 grossly intact. +2 normoactive biceps, patellar, Achilles, and deep tendon reflexes bilaterally. IMPRESSION / REPORT / PLAN 1) Intermittent migraine headaches. PLAN: Naprosyn 500 mg twice a day with food. We will try oral Imitrex 50 mg at onset of headache. She may take this with a Naprosyn. She may repeat the Imitrex in 1 to 2 hours as needed. She is to follow up on an as-needed basis. 2) Depression and anxiety, controlled. PLAN: She will continue on her citalopram 40 mg daily. She states she has a current prescription for this and does not need a refill at this time, but will notify us when she does need a refill and we will refill this for a year. 3) Generalized malaise and fatigue, likely multifactorial. PLAN: This is likely multifactorial, including deconditioning, stressful lifestyle, having 2 small children, and anxiety and depression. We will, however, obtain a CBC, a comprehensive panel, and a TSH to exclude other causes. She will be notified of results when available and further plan based on results. 4) Herpes genitalis. PLAN: She was given Valtrex 1 gram daily for 5 days to take during outbreaks, #15 tablets with 3 refills given. She has infrequent outbreaks and we did discuss chronic suppression and asymptomatic shedding of the HSV virus. She does not desire to take medication on a daily basis. We discussed avoiding sexual contact during outbreaks and use of barrier method for protection or spread of the virus. Follow up as needed. 5) Sexually transmitted infection screening/vaginitis. PLAN: She will be notified of results when available. Sexually transmitted laboratories pending including GC/chlamydia, acute hepatitis panel, syphilis, and HIV. 6) Contraceptions counseling and management. PLAN: Depo-Provera was given today. Refills for 1 year. [facility] will [facility] 12 weeks for administration of Depo-Provera. 7) Preventive health/well-woman exam. PLAN: Age appropriate healthy lifestyle choices and health maintenance issues were discussed. Expected to have a complete physical and pelvic exam yearly. Thin prep pap and STI testing pending as above. She will be notified of results when available. Verbal recommendation for eye and dental visits. She is current with these. Reinforced monthly breast self-exams. She does do these periodically. Screening mammogram at age 41. Instructed on healthy diet including adequate calcium and regular exercise program, 20 minutes most days of the week. Advised to wear seat belts while driving or riding in motor vehicles. Immunization given today was a flu shot. In addition to the above laboratories, a fasting lipid panel lis pending. 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 - 08/18/2011 11:23 AM CDT Results Notification Document Contains Addenda Addendum by TOÑO FRAGA on 18 August 2011 13:06:50 CDT PT NOTIFIED OF RESULTS From: JENAE MINOR To: TOÑO FRAGA Sent: 08/18/2011 11:23:46 CDT ! Show up: 08/18/2011 11:23:00 CDT Subject: Results Notification Actions: Notify patient of results Due Date/Time: 08/18/2011 11:23:00 CDT Source: [facility] [employer]ERSil[employer] Document Id: [id number] Miscellaneous - Jenae Minor P.A.-C., P.A. - 08/16/2011 10:20 AM CDT Results Notification Document Contains Addenda Addendum by TOÑO FRAGA on 16 August 2011 16:33:14 CDT unable to reach pt copy sent. Addendum by TOÑO FRAGA on 16 August 2011 10:30:43 CDT Unable to leave message will try to call again. From: JENAE MINOR To: TOÑO FRAGA Sent: 08/16/2011 10:20:55 CDT ! Show up: 08/16/2011 10:20:00 CDT Subject: Results Notification Actions: Notify patient of results Due Date/Time: 08/16/2011 10:20:00 CDT Source: [facility] [employer]ell[employer] Document Id: [id number] Miscellaneous - Jenae Minor P.A.-C., P.A. - 08/16/2011 9:09 AM CDT Results Notification Document Contains Addenda Addendum by TOÑO FRAGA on 16 August 2011 16:33:02 CDT unable to reach pt. copy sent. Addendum by TOÑO FRAGA on 16 August 2011 09:39:54 CDT UNABLE TO LEAVE MESSAGE WILL CALL AGAIN. From: JENAE MINOR To: TOÑO FRAGA Sent: 08/16/2011 09:09:11 CDT ! Show up: 08/16/2011 09:09:00 CDT Subject: Results Notification Actions: Notify patient of results Due Date/Time: 08/16/2011 09:09:00 CDT Source: [facility] 100PlusCHART Document Id: [id number] Miscellaneous - Jenae Minor P.A.-C., P.A. - 08/15/2011 4:34 PM CDT Results Notification Document Contains Addenda Addendum by TOÑO FRAGA on 16 August 2011 16:32:49 CDT Unable to reach pt, copy sent. Addendum by TOÑO FRAGA on 16 August 2011 09:39:39 CDT UNABLE TO LEAVE MESSAGE WILL TRY AGAIN. From: JENAE MINOR To: TOÑO FRAGA Sent: 08/15/2011 16:34:10 CDT ! Show up: 08/15/2011 16:33:00 CDT Subject: Results Notification Actions: Notify patient of results Due Date/Time: 08/15/2011 16:33:00 CDT Source: [facility] 100PlusCHART Document Id: [id number] Electronically signed by [facility] [employer] Logging Equipment Operator [id number] at 04/08/2017 5:12 PM CDT Miscellaneous - Jenae Minor P.A.-C., P.A. - 08/15/2011 2:50 PM CDT Results Notification Document Contains Addenda Addendum by TOÑO FRAGA on 15 August 2011 15:39:17 CDT pt notified From: JENAE MINOR To: TOÑO FRAGA Sent: 08/15/2011 14:50:01 CDT ! Show up: 08/15/2011 14:49:00 CDT Subject: Results Notification Actions: Notify patient of results Due Date/Time: 08/15/2011 14:49:00 CDT Source: [facility] POWERCHART Document Id: [id number] Electronically signed by [facility] [employer] Logging Equipment Operator [id number] at 04/08/2017 5:12 PM CDT Miscellaneous - Jenae Minor P.A.-C., P.A. - 08/15/2011 12:13 PM CDT [facility] [address] [place] [address] Visit Information Name: NANCY ROBINS Current Date: 08/15/2011 12:13:40 Primary Care Provider: AIDAN GERMAN MD Your Medications Here is a list of your medications. It is important to take your medications as directed. Use a pillbox or chart to help remind you to take your medications. Please let your doctor or nurse know if you have problems taking your medications. Medication/Strength Dose Route Frequency Indications/Special Instructions/Comments naproxen (Naprosyn 500 mg oral tablet) 500 mg Oral two times a day as needed for Headache with food sumatriptan (Imitrex 50 mg oral tablet) 50 mg Oral once as needed for Migraine headache may repeat dose once in 2 hours valACYclovir (Valtrex 1 g oral tablet) 1 gm Oral once a day for 5 Days citalopram (Celexa 40 mg oral tablet) 40 mg Oral once a day ibuprofen (ibuprofen 600 mg oral tablet) 600 mg Oral every 6 hours as needed for Pain Your Allergies & Intolerances Substance Reaction Symptoms Category Comments NKA Drug Your Problem List Problem Status Onset [...] Episode, Unspecified Degree Active 02/27/2011 depression, recurrent. Infertility, Female, of Unspecified Origin Inactive 07/06/2004 History of - miscarriage Inactive 11/05/2006 first trimester misscarriage Your Recommendations We want to make sure [...] Additional Information Depression: PHQ-9 every 6 months 02/27/2011 08/29/2011 Screening Pap Smear every 3 years Women 21-65 08/03/2010 08/02/2013 Checks for signs of cancer of the cervix. Vaccine: Tetanus every 10 years 01/17/2009 01/15/2019 Immunization to help prevent you from getting the serious disease Tetanus (Lockjaw). Your Upcoming Appointments Date Time Location Reason Provider No Appointments found Your Goals/Additional instructions: Source: [facility] POWERCHART Document Id: [id number] Miscellaneous - Jenae Minor P.A.-C., P.A. - 08/15/2011 12:13 PM CDT Ambulatory Depart Summary [address] [address] Visit Information Name: TAYEFRITZNANCY ELIZABETH Current Date: 08/15/2011 12:13:39 Primary Care Provider: AIDAN GERMAN MD NANCY ROBINS has been given the following list of medications: Your Medications It is important to take your medications as directed. Use a pill box or chart to help remind you to take your medications. Please let your doctor or nurse know if you have problems taking your medications. Medication/Strength Dose Route Frequency Indications/Special Instructions/Comments naproxen (Naprosyn 500 mg oral tablet) 500 mg Oral two times a day as needed for Headache with food sumatriptan (Imitrex 50 mg oral tablet) 50 mg Oral once as needed for Migraine headache may repeat dose once in 2 hours valACYclovir (Valtrex 1 g oral tablet) 1 gm Oral once a day for 5 Days citalopram (Celexa 40 mg oral tablet) 40 mg Oral once a day ibuprofen (ibuprofen 600 mg oral tablet) 600 mg Oral every 6 hours as needed for Pain Additional Information: Yes - Current list of reconciled medications is provided and explained to the patient and/or family, guardian/caregiver. Source: [facility] 100PlusCHART Document Id: [id number] Miscellaneous - Conversion, Historical Provider Ser - 08/15/2011 11:04 AM CDT Adult Support Engineer Intake/History Adult Support Engineer Intake/History Entered On: 08/15/2011 11:06 CDT Performed On: 08/15/2011 11:04 CDT by TOÑO FRAGA Intake Chief Complaint: Meet & Greet- Needs depo and pap smear LMP Date: 05/31/2010 Temperature Oral: 36.9C(Converted to: 98.4DegF) Peripheral Pulse Rate: 70/min Respiratory Rate: 18/min Systolic Blood Pressure: 112mmHg Diastolic Blood Pressure: 68mmHg NIBP Mean: 83mmHg BP Location: Right upper extremity Height: 165.70cm(Converted to: 5ft 5inch(es), 65.24inch(es)) Actual Weight: 110.600kg(Converted to: 243lb 13oz) Weight Source: Standing scale Dosing Weight Clinic: 110.60kg Clinic BSA: 2.26 Body Mass Index: 40.28kg/m2 TOÑO FRAGA - 08/15/2011 11:04 CDT Subjective Pain Symptoms: No TOÑO FRAGA - 08/15/2011 11:04 CDT Dependent Habits Tobacco Use/Currently Using: No TOÑO FRAGA - 08/15/2011 11:04 CDT Tobacco Use Grid Other Tobacco Frequency: non TOÑO FRAGA - 08/15/2011 11:04 CDT Caffeine Use Grid Caffeine Use: Current Type: Soft drinks Frequency: Daily TOÑO FRAGA - 08/15/2011 11:04 CDT Allergy Allergies (Active) NKA Estimated Onset Date: Unspecified ; Created By: CECIL ALEGRIA LPN; Reaction Status: Active ; Category: Drug ; Substance: NKA ; Type: Allergy ; Updated By: CECIL ALEGRIA LPN; Reviewed Date: 08/15/2011 11:03 CDT Source: [facility] 100PlusCHART Document Id: [id number] CDT!29 Miscellaneous - Conversion, Historical Provider Ser - 08/15/2011 9:20 AM CDT PHQ-9 PHQ-9 Entered On: 08/16/2011 9:20 CDT Performed On: 08/15/2011 9:20 CDT by TOÑO FRAGA PHQ-9 Little interest or pleasure in doing things: Several days Feeling down, depressed, or hopeless: More than half the days Trouble falling or staying asleep, or sleeping too much: More than half the days Feeling tired or having little energy: More than half the days Poor appetite or overeating: Several days Feeling bad about yourself or that you are a failure: More than half the days Trouble concentrating on things: Not at all Moving or speaking slowly; restless or fidgety: Not at all Thoughts that you would be better off /hurting self: Several days PHQ-9 Calculated Score: 11 Problems make work, home, or dealing with others: Somewhat difficult TOÑO FRAGA - 08/16/2011 9:20 CDT Source: [facility] [employer] Document Id: [id number] CDT!13 documented in this encounter Plan of Treatment Upcoming Encounters Date Type Specialty Care Team Description 08/17/2022 Procedure visit Neurology Marina Winter M.D., M.P.H. [address] [phone] (Wo rk) Scheduled Procedures Name Priority Associated Diagnoses Date/Time LIFT THIGH Excessive And Redundant Skin And Subcutaneous Tissue documented as of this encounter Procedures Procedure Name Priority Date/Time Associated Comments Diagnosis ZZPATHOLOGY NON-SAMPLE BUILDER Routine 08/15/2011 12:00 Resu lts for this CYTOLOGY AM CDT procedure are i n the results section. documented in this encounter Results ZZPATHOLOGY NON-SAMPLE BUILDER CYTOLOGY (08/15/2011 12:00 AM CDT) Specimen (Source) Anatomical Location Collection Method / Collectio n Time Received Time / Laterality Volume 08/15/2011 Narrative [facility] - 08/23/20 11 10:50 AM CDT PATIENT IMAGES Choose the Image button to view related documents. Historical Provider LAB PATHOLOGY/CYTOLOGY ORDER BERRY Performing Organization Address City/State/ZIP Code Phon e Number [facility] documented in this encounter Visit Diagnoses Not on filedocumented in this encounter Additional Health Concerns Assessment Noted Time PHQ-9 Depression Total Score: 08/15/2011 9:20 AM CD T documented as of this encounter
--- OUTSIDE RECORDS SUMMARY | 2022-07-24 15:19 | XMS_ITS | Encounter Summary ---
:1985 Author Organization [facility] Address [address] [place] [address] Care Team Providers Name Role Phone Unavailable Primary Care Provider Unavailable Encounter Details Date Type Department Care Team Description 09/10/2012 Hospital Encounter [facility]X [facility] Lexii French, P.A.-C., P.A. [address] [place], [place] [phone] (Wo rk) Social History [...] How often do you attend lutheran or baptism Never 07/04/2019 services? 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 - 09/10/2012 5:59 PM RIPENING ROOM ATTENDANT Results Notification Document Contains Addenda Addendum by TOÑO FRAGA on 11 September 2012 09:16:42 RIPENING ROOM ATTENDANT Patient notified 09/10/12. From: LEXII MINOR To: TOÑO FRAGA Sent: 09/10/2012 17:59:44 RIPENING ROOM ATTENDANT ! Show up: 09/10/2012 23:59:[address] [facility] Subject: Results Notification Actions: Notify patient of results Source: [facility] POWERCHART Document Id: [id number] documented in this encounter Plan of Treatment Upcoming Encounters Date Type Specialty Care Team Description 08/17/2022 Procedure visit Neurology Marina Winter M.D., M.P.H. [address] [phone] (Wo rk) Scheduled Procedures Name Priority Associated Diagnoses Date/Time LIFT THIGH Excessive And Redundant Skin And Subcutaneous Tissue documented as of this encounter Procedures Procedure Name Priority Date/Time Associated Diagnosis Comme nts TEST, U Routine 09/10/2012 3:26 PM Resu lts for this RIPENING ROOM ATTENDANT procedure are i n the results section. documented in this encounter Results Test, Qualitative, Urine (09/10/2012 3:26 PM RIPENING ROOM ATTENDANT) [facility] gist Method Time Signature HXBeta-hCG Weak Pos POWERCHART Qualitative Urine Specimen (Source) Anatomical Collection Method Collection Time Re ceived Time Location / / Volume Laterality Urine 09/10/2012 3:26 PM RIPENING ROOM ATTENDANT Lexii Minor P.A.-C., P.A. LAB URINE ORDERABLES Performing Organization Address City/State/ZIP Code Phon e Number POWERCHART documented in this encounter Visit Diagnoses Not on filedocumented in this encounter Additional Health Concerns Assessment Noted Time PHQ-9 Depression Total Score: 17 05/07/2012 1:10 PM CD T documented as of this encounter
--- OUTSIDE RECORDS SUMMARY | 2022-07-24 15:19 | XMS_ITS | Encounter Summary ---
:1985 Author Organization [facility] Address [address] [place] [address] Care Team Providers Name Role Phone Unavailable Primary Care Provider Unavailable Encounter Details Date Type Department Care Team Description 02/02/2012 Hospital Encounter [facility]X [facility] Grandalfred, Lizandro Olguin, P.A.-C., P.A. [address] [place], [place] [phone] (Wo rk) Social History [...] How often do you attend jainism or pentecostal Never 07/04/2019 services? 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 [address] [place] [phone] (Wo rk) Scheduled Procedures Name Priority Associated Diagnoses Date/Time LIFT THIGH Excessive And Redundant Skin And Subcutaneous Tissue documented as of this encounter Visit Diagnoses Not on filedocumented in this encounter Additional Health Concerns Assessment Noted Time PHQ-9 Depression Total Score: 13 11/13/2011 1:58 PM CS T documented as of this encounter
--- OUTSIDE RECORDS SUMMARY | 2022-07-24 15:19 | XMS_ITS | Encounter Summary ---
:1985 Author Organization [facility] Address [address] [place] [address] Care Team Providers Name Role Phone Unavailable Primary Care Provider Unavailable Encounter Details Date Type Department Care Team Description 07/24/2011 Hospital Encounter [facility]X [facility] Provider, Norberto rock Social History Tobacco Use Types Packs/Day Years [...] How often do you attend catholic or jewish Never 07/04/2019 services? 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 [address] [place], [place] [phone] (Wo rk) Scheduled Procedures Name Priority Associated Diagnoses Date/Time LIFT THIGH Excessive And Redundant Skin And Subcutaneous Tissue documented as of this encounter Visit Diagnoses Not on filedocumented in this encounter Additional Health Concerns Assessment Noted Time PHQ-9 Depression Total Score: 13 02/27/2011 2:40 PM CD T documented as of this encounter
--- OUTSIDE RECORDS SUMMARY | 2022-07-24 15:20 | XMS_ITS | Encounter Summary ---
:1985 Author Organization [facility] Address [address] [place] [address] Care Team Providers Name Role Phone Unavailable Primary Care Provider Unavailable Encounter Details Date Type Department Care Team Description 11/12/2010 Hospital Encounter HX NO MAPPING Steffi Kendrick M.D. [address] [place] [phone] (Wo rk) Social History Tobacco Use Types [...] How often do you attend restoration or sikh Never 07/04/2019 services? 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 [address], [place] [phone] (Wo rk) Scheduled Procedures Name Priority Associated Diagnoses Date/Time LIFT THIGH Excessive And Redundant Skin And Subcutaneous Tissue documented as of this encounter Visit Diagnoses Not on filedocumented in this encounter
--- OUTSIDE RECORDS SUMMARY | 2022-07-24 15:20 | XMS_ITS | Encounter Summary ---
:1985 Author Organization [facility] Address [address] [place] [address] Care Team Providers Name Role Phone Unavailable Primary Care Provider Unavailable Encounter Details Date Type Department Care Team Description 09/10/2003 Hospital Encounter [facility]X [facility] Jose Ortega Jr., M.D. [address] [place], [place] [phone] (Wo rk) Social History [...] How often do you attend jewish or yarsanism Never 07/04/2019 services? 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 [address] [phone] (Wo rk) Scheduled Procedures Name Priority Associated Diagnoses Date/Time LIFT THIGH Excessive And Redundant Skin And Subcutaneous Tissue documented as of this encounter Visit Diagnoses Not on filedocumented in this encounter
--- OUTSIDE RECORDS SUMMARY | 2022-07-24 15:20 | XMS_ITS | Encounter Summary ---
:1985 Author Organization [facility] Address [address] [place] [address] Care Team Providers Name Role Phone Unavailable Primary Care Provider Unavailable Encounter Details Date Type Department Care Team Description 02/24/2007 Hospital Encounter HX [facility] Provider, Bekah vargas Social History Tobacco Use Types Packs/Day Years [...] How often do you attend scientology or yarsanism Never 07/04/2019 services? 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 [address] [phone] (Wo rk) Scheduled Procedures Name Priority Associated Diagnoses Date/Time LIFT THIGH Excessive And Redundant Skin And Subcutaneous Tissue documented as of this encounter Visit Diagnoses Not on filedocumented in this encounter
--- OUTSIDE RECORDS SUMMARY | 2022-07-24 15:20 | XMS_ITS | Encounter Summary ---
:1985 Author Organization [facility] Address [address] [place] [address] Care Team Providers Name Role Phone Unavailable Primary Care Provider Unavailable Encounter Details Date Type Department Care Team Description 09/15/2010 Hospital Encounter HX [facility] Steve Dupont M.D. [address] [place] [address] (Wo rk) Social History Tobacco Use Types [...] How often do you attend sabianism or anabaptism Never 07/04/2019 services? 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 - 09/15/2010 12:00 AM CST [id number] IMPRESSION/REPORT/PLAN I spent over 35 minutes with Nancy today. itself is going well, but she is having some relationship issues with some trust and honesty. Talked to her about that at length and asked that she see her previous therapist up in [place] if possible, otherwise I have somebody here in [place] if that is easier for her. We will have her back in 3 weeks, at which time we will do an ultrasound, as well as, we will have her see Kiera Welch and get set up to have her blood sugars followed. CHIEF COMPLAINT/REASON FOR VISIT Nancy comes in today for OB check. BDB/mgd Signed Aidan Diaz M.D. Obstetrics & Gynecology Electronically Signed By:AIDAN DIAZ MD On 09/20/2010 07:47 AM Source: [facility] MHSDOLBEYNONRADSYS Document Id: [id number] PING LEAD documented in this encounter Miscellaneous Notes Miscellaneous - Aidan Diaz M.D. - 09/15/2010 11:14 AM CST Ambulatory [place] [address] Visit Information Name: NANCY CAMPBELL Current Date: 09/15/2010 11:14:26 Primary Care Provider: AIDAN DIAZ MD [id number] Your Medications Here is a list of your medications. It is important to take your medications as directed. Use a pillbox or chart to help remind you to take your medications. Please let your doctor or nurse know if you have problems taking your medications. Medication/Strength Dose Route Frequency Indications/Special Instructions/Comments propranolol (propranolol 10 mg oral tablet) 10 mg Oral two times a day acetaminophen-hydrocodone (Vicodin 5 mg-500 mg oral tablet) 1 tab(s) Oral every 4-6 hours as needed for Pain ranitidine (Zantac) 150 mg Oral two times a day multivitamin, ( Multivitamins) 1 tab(s) Oral once a day Your Allergies & Intolerances Substance Reaction Symptoms Category Comments NKA Drug Your Problem List Problem Status Onset Comments Endometriosis of Pelvic Peritoneum Active 07/25/2004 Infertility, Female, of Unspecified Origin Active 07/25/2004 Migraine headache Active 08/23/2010 Gestational diabetes Active History of - miscarriage Active Tattoo Active Your Recommendations We want to make sure [...] Test/Treatment Last Done Next Due Additional Information Screening Chlamydia every 1 year Females Age 15-24 09/15/2010 Screening Pap Smear every 3 years Women 21-65 08/03/2010 08/02/2013 Checks for signs of cancer of the cervix. Lipid Panel every 5 years Age 20-75 09/15/2010 Checks blood for good (HDL) and bad (LDL) cholesterol. Know your numbers, they are one indicator of your risk for heart attack and stroke. Vaccine: Tetanus every 10 years 04/19/1999 04/16/2009 Immunization to help prevent you from getting the serious disease Tetanus (Lockjaw). 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 Diaz/seeing him after Diana Morris CNM 10/11/2010 11:00 [facility] ORNAMENTAL METAL WORKER APPRENTICE ob ultrasound. I also wish her to see kiera welch that day to get set upwith a glucometer Aidan Diaz MD Your Goals/Additional instructions: Source: [facility] POWERCHART Document Id: [id number] Miscellaneous - Aidan Diaz M.D. - 09/15/2010 11:14 AM CST Ambulatory [place] [address] Visit Information Name: NANCY CAMPBELL Current Date: 09/15/2010 11:14:25 Primary Care Provider: AIDAN DIAZ MD [id number] NANCY CAMPBELL has been given the following list of medications: Your Medications It is important to take your medications as directed. Use a pill box or chart to help remind you to take your medications. Please let your doctor or nurse know if you have problems taking your medications. Medication/Strength Dose Route Frequency Indications/Special Instructions/Comments propranolol (propranolol 10 mg oral tablet) 10 mg Oral two times a day acetaminophen-hydrocodone (Vicodin 5 mg-500 mg oral tablet) 1 tab(s) Oral every 4-6 hours as needed for Pain ranitidine (Zantac) 150 mg Oral two times a day multivitamin, ( Multivitamins) 1 tab(s) Oral once a day Additional Information: Yes - Current list of reconciled medications is provided and explained to the patient and/or family, guardian/caregiver. Source: [facility] [employer]CHART Document Id: [id number] Electronically signed by Conversion, [facility] Tile Sorter [id number] at 04/09/2017 4:59 AM CDT Miscellaneous - Conversion, Historical Provider Ser - 09/15/2010 10:23 AM SHIPPING LEAD Adult Soap Maker Intake/History Adult Soap Maker Intake/History Entered On: 09/15/2010 10:23 SHIPPING LEAD Performed On: 09/15/2010 10:23 SHIPPING LEAD by YVETTE HEART LPN Intake Chief Complaint: OB check @ 15 2/7 weeks LMP Date: 05-01-10 Systolic Blood Pressure: 122mmHg Diastolic Blood Pressure: 70mmHg NIBP Mean: 87mmHg BP Location: Right upper extremity Heart Rhythm: Regular Actual Weight: 116.500kg(Converted to: 256lb 13oz) Dosing Weight Clinic: 116.50kg YVETTE HEART LPN - 09/15/2010 10:23 SHIPPING LEAD Subjective Pain Symptoms: No YVETTE HEART LPN - 09/15/2010 10:23 SHIPPING LEAD Dependent Habits Tobacco Use/Currently Using: No YVETTE HEART LPN - 09/15/2010 10:23 SHIPPING LEAD Caffeine Use Grid Caffeine Use: Current Type: Soft drinks Frequency: Daily YVETTE HEART LPN - 09/15/2010 10:23 SHIPPING LEAD Allergies Allergies (Active) NKA Estimated Onset Date: Unspecified ; Created By: CECIL ALEGRIA LPN; Reaction Status: Active ; Category: Drug ; Substance: NKA ; Type: Allergy ; Updated By: CECIL ALEGRIA LPN; Reviewed Date: 09/15/2010 10:22 SHIPPING LEAD Source: [facility] [employer] Document Id: [id number] SHIPPING LEAD!20 documented in this encounter Plan of Treatment Upcoming Encounters Date Type Specialty Care Team Description 08/17/2022 Procedure visit Neurology Marina Winter M.D., M.P.H. [address] [phone] (Wo rk) Scheduled Procedures Name Priority Associated Diagnoses Date/Time LIFT THIGH Excessive And Redundant Skin And Subcutaneous Tissue documented as of this encounter Visit Diagnoses Not on filedocumented in this encounter
--- OUTSIDE RECORDS SUMMARY | 2022-07-24 15:20 | XMS_ITS | Encounter Summary ---
:1985 Author Organization [facility] Address [address] [place] [address] Care Team Providers Name Role Phone Unavailable Primary Care Provider Unavailable Encounter Details Date Type Department Care Team Description 04/13/2011 Hospital Encounter HX [facility] Stvee Dupont M.D. [address] [place] [address] (Wo rk) Social History Tobacco Use Types [...] 03/29/2020 relatives? How often do you attend yarsani or buddhism Never 07/04/2019 services? 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 - 04/13/2011 12:00 AM CDT [id number] IMPRESSION/REPORT/PLAN 1. Normal 6 week checkup. 2. History of depression. Plan: We will increase her Celexa to 40 mg a day. I sent that in via electronic record. I will see her back as needed. CHIEF COMPLAINT/REASON FOR VISIT Six week checkup. HISTORY OF PRESENT ILLNESS Patient comes in for 6 week checkup. In general she is doing well. She had a repeat and has done well. No depression. She has had a little bit of blues, but is doing well with that. She is back on her Celexa 20 mg a day and wishes to take it back up to 40. We will refill that for her. She did get a Depo shot and is due for another one in a month and a half. She has had a little bit of spotting from that as well. No other complaints. Incision has healed fine. PHYSICAL EXAM AREA EXAM TEXT GENERAL Pleasant white female in no acute distress. Patient is alert and oriented times three. Patient appears groomed appropriately. SKIN Skin appears normal without any evidence of rashes or lesions. LYMPH NODES Neck is supple without thyromegaly. No evidence of any cervical lymphadenopathy. Trachea is midline. BREASTS Without masses or tenderness. HEART Regular rate and rhythm without murmur, rubs, or gallops. No evidence of any peripheral vascular disease. LUNGS Clear to auscultation with good inspiratory effort. ABDOMEN Soft and nontender. No masses or hepatosplenomegaly. No evidence of any hernias present. No evidence of any palpable groin nodes. Incision is healing fine. GENITALIA External genitalia, Bartholin's, urethral and Spotswood's glands within normal limits. Vagina normal rugae. Cervix appears multiparous. Uterus is midposition, normal size, shape and consistency. Adnexa without masses or tenderness. BDB/mgd Signed Aidan Diaz M.D. Obstetrics & Gynecology Electronically Signed By: AIDAN DIAZ MD On: 04/18/2011 08:47 AM Source: [facility] MHSDOLBEYNONRADSYS Document Id: [id number] documented in this encounter Miscellaneous Notes Miscellaneous - Cecil Saleh L.P.N. - 04/13/2011 10:55 AM CDT Adult Magnet Valve Assembler Intake/History Adult Magnet Valve Assembler Intake/History Entered On: 04/13/2011 10:58 CDT Performed On: 04/13/2011 10:55 CDT by CECIL SALEH LPN Intake Chief Complaint: pp 02/18/2011 Peripheral Pulse Rate: 68/min Systolic Blood Pressure: 104mmHg Diastolic Blood Pressure: 66mmHg NIBP Mean: 79mmHg BP Location: Right upper extremity Actual Weight: 103.900kg(Converted to: 229lb 1oz) Dosing Weight Clinic: 103.90kg CECIL ASLEH LPN - 04/13/2011 10:55 CDT Subjective Pain Symptoms: No CECIL SALEH LPN - 04/13/2011 10:55 CDT Dependent Habits Tobacco Use/Currently Using: No CECIL SALEH LPN - 04/13/2011 10:55 CDT Tobacco Use Grid Other Tobacco Frequency: non CECIL SALEH LPN - 04/13/2011 10:55 CDT Caffeine Use Grid Caffeine Use: Current Type: Soft drinks Frequency: Daily CECIL SALEH LPN - 04/13/2011 10:55 CDT Allergy Allergies (Active) NKA Estimated Onset Date: Unspecified ; Created By: CECIL SALEH LPN; Reaction Status: Active ; Category: Drug ; Substance: NKA ; Type: Allergy ; Updated By: CECIL SALEH LPN; Reviewed Date: 02/28/2011 15:58 CDT Source: [facility] [employer] Document Id: [id number] CDT!22 documented in this encounter Plan of Treatment Upcoming Encounters Date Type Specialty Care Team Description 08/17/2022 Procedure visit Neurology Marina Winter M.D., M.P.H. [address] [phone] (Wo rk) Scheduled Procedures Name Priority Associated Diagnoses Date/Time LIFT THIGH Excessive And Redundant Skin And Subcutaneous Tissue documented as of this encounter Visit Diagnoses Not on filedocumented in this encounter Additional Health Concerns Assessment Noted Time PHQ-9 Depression Total Score: 13 02/27/2011 2:40 PM CD T documented as of this encounter
--- OUTSIDE RECORDS SUMMARY | 2022-07-24 15:20 | XMS_ITS | Encounter Summary ---
:1985 Author Organization [facility] Address [address] [place] [address] Care Team Providers Name Role Phone Unavailable Primary Care Provider Unavailable Encounter Details Date Type Department Care Team Description 02/28/2011 Hospital Encounter HX [facility]ILY[facility] Evita Lay M.D. Social History Tobacco Use Types Packs/Day [...] How often do you attend christian or orthodoxy Never 07/04/2019 services? 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 - 02/28/2011 12:00 AM CDT [id number] CHIEF COMPLAINT/ REASON FOR VISIT Migraine headaches. HISTORY OF PRESENT ILLNESS This 25-year-old female patient is in for migraine headaches. She states she has had them since she was a child her mother has headaches. As a teenager she received a shot of Imitrex and it made her sick. She had a headache yesterday and she took one ibuprofen and a Vicodin prescribed by Dr. Diaz. She comes in here today with a headache almost gone. She states that during she had to go to the emergency room three times and she had received morphine. I recommend trying her without narcotics using combination of ibuprofen 600 milligrams 1000 mg of Tylenol, she states does not work, and Vistaril 25 milligrams four times a day when she has a headache and if that does not work make appointment to see Dr. Carballo Neurologist. EMR record reviewed and updated. SYSTEMS REVIEW 1. Respiratory: No cough or shortness of breath. 2. Cardiovascular: No palpitation of the heart, no chest pain. 3. GI: No nausea, vomiting, diarrhea, constipation or recent change in weight. 4. : No dysuria, no hematuria. 5. All other systems reviewed and negative, except as mentioned above. PHYSICAL EXAM AREA EXAM TEXT SKIN Clear EYES Pupils equal, round, react to light and accommodation; EOMs full; fundi no papilledema, hemorrhage or exudate; lids normal. ENT Ears: TMs clear; external auditory canals clear. Throat clear. Tongue normal. Teeth normal. LYMPH NODES Neck: no lymphadenopathy. THYROID Normal size, symmetric. HEART No murmur, gallop or rub; normal size; PMI arteries normal. LUNGS Clear to percussion and auscultation, normal to inspection, no retractions, no dyspnea. ABDOMEN No masses, no organomegaly, nontender; normal to inspection, percussion and palpation; no distention. EXTREMITIES Legs: no edema. NEURO Cranial nerves grossly intact. Deep tendon reflexes symmetrical +2. No obvious problems with neurological function including extremities. IMPRESSION/REPORT/PLAN Migraine headaches chronic denies any problems or triggers related to diet or sun exposure. She has no blurred vision. She states the headaches can be all over her head. Plan medication as listed if still having trouble in a month see Dr. Carballo sooner if needed SFO/clf Signed Marcio Lay M.D. Family Medicine Electronically Signed By: MARCIO LAY MD On: 03/02/2011 01:56 Source: [facility] MHSDOLBEYNONRADSYS Document Id: [id number] documented in this encounter Miscellaneous Notes Miscellaneous - Marcio Lay M.D. - 02/28/2011 4:19 PM CDT Ambulatory Patient Summary [address] [address] Visit Information Name: NANCY CAMPBELL Current Date: 02/28/2011 16:19:13 Primary Care Provider: AIDAN DIAZ MD Your Medications Here is a list of your medications. It is important to take your medications as directed. Use a pillbox or chart to help remind you to take your medications. Please let your doctor or nurse know if you have problems taking your medications. Medication/Strength Dose Route Frequency Indications/Special Instructions/Comments ibuprofen (Ibu 600 mg oral tablet) 600 mg Oral four times a day hydrOXYzine (Vistaril 25 mg oral capsule) 25 mg Oral four times a day as needed for Migraine headache ibuprofen (ibuprofen 600 mg oral tablet) 600 mg Oral every 6 hours as needed for Pain citalopram (Celexa 20 mg oral tablet) 20 mg Oral once a day ferrous sulfate (ferrous sulfate) docusate (Colace) propranolol (propranolol 10 mg oral tablet) 10 [...] Chlamydia every 1 year Females Age 15-24 02/07/2011 02/07/2012 Depression: PHQ-9 every 6 months 02/27/2011 08/29/2011 Screening Pap Smear every 3 years Women 21-65 08/03/2010 08/02/2013 Checks for signs of cancer of the cervix. Lipid Panel every 5 years Age 20-75 02/28/2011 Checks blood for good (HDL) and bad (LDL) cholesterol. Know your numbers, they are one indicator of your risk for heart attack and stroke. Vaccine: Tetanus every 10 years 01/17/2009 01/15/2019 Immunization to help prevent you from getting the serious disease Tetanus (Lockjaw). Your Upcoming Appointments Date Time Location Reason Provider 03/07/2011 13:30 [facility] METAL NEUTRALIZER depression Aidan Diaz MD 04/04/2011 13:30 [facility] METAL NEUTRALIZER exam Aidan Diaz MD Your Goals/Additional instructions: Source: [facility] POWERCHART Document Id: [id number] Electronically signed by [facility] Infection Prevention Specialist [id number] at 04/08/2017 11:24 AM CDT Miscellaneous - Marcio Lay M.D. - 02/28/2011 4:19 PM CDT Ambulatory Depart Summary [address] [address] Visit Information Name: NANCY CAMPBELL Current Date: 02/28/2011 16:19:12 Primary Care Provider: AIDAN DIAZ MD NANCY CAMPBELL has been given the following list of medications: Your Medications It is important to take your medications as directed. Use a pill box or chart to help remind you to take your medications. Please let your doctor or nurse know if you have problems taking your medications. Medication/Strength Dose Route Frequency Indications/Special Instructions/Comments ibuprofen (Ibu 600 mg oral tablet) 600 mg Oral four times a day hydrOXYzine (Vistaril 25 mg oral capsule) 25 mg Oral four times a day as needed for Migraine headache ibuprofen (ibuprofen 600 mg oral tablet) 600 mg Oral every 6 hours as needed for Pain citalopram (Celexa 20 mg oral tablet) 20 mg Oral once a day ferrous sulfate (ferrous sulfate) docusate (Colace) propranolol (propranolol 10 mg oral tablet) 10 [...] to the patient and/or family, guardian/caregiver. Source: [facility] POWERCHART Document Id: [id number] Electronically signed by [facility], [facility] Infection Prevention Specialist [id number] at 04/08/2017 11:24 AM CDT Miscellaneous - Conversion, Historical Provider Ser - 02/28/2011 4:00 PM CDT Adult Transactional Paralegal Intake/History Adult Transactional Paralegal Intake/History Entered On: 02/28/2011 16:03 CDT Performed On: 02/28/2011 16:00 CDT by KHLOE GOLDBERG Intake Chief Complaint: Referred by Dr. Hathaway regarding headaches Peripheral Pulse Rate: 88/min Systolic Blood Pressure: 122mmHg Diastolic Blood Pressure: 62mmHg NIBP Mean: 82mmHg BP Location: Right upper extremity Heart Rhythm: Regular Height: 163.00cm(Converted to: 5ft 4in, 64.17in) Actual Weight: 104.500kg(Converted to: 230lb 6oz) Dosing Weight Clinic: 104.50kg Clinic BSA: 2.18 Body Mass Index: 39.33kg/m2 KHLOE GOLDBERG - 02/28/2011 16:00 CDT Subjective Pain Symptoms: No KHLOE GOLDBERG - 02/28/2011 16:00 CDT Dependent Habits Tobacco Use/Currently Using: No Tobacco Use/Last 12 months: No KHLOE GOLDBERG - 02/28/2011 16:00 CDT Tobacco Use Grid Other Tobacco Frequency: non KHLOE GOLDBERG - 02/28/2011 16:00 CDT Caffeine Use Grid Caffeine Use: Current Type: Soft drinks Frequency: Daily KHLOE GOLDBERG 02/28/2011 16:00 CDT Allergy Allergies (Active) NKA Estimated Onset Date: Unspecified ; Created By: CECIL ALEGRIA LPN; Reaction Status: Active ; Category: Drug ; Substance: NKA ; Type: Allergy ; Updated By: CECIL ALEGRIA LPN; Reviewed Date: 02/28/2011 15:58 CDT [facility] Document Id: [id number] CDT!27 documented in this encounter Plan of Treatment Upcoming Encounters Date Type Specialty Care Team Description 08/17/2022 Procedure visit Neurology Marina Winter M.D., M.P.H. [address] [phone] (Wo rk) Scheduled Procedures Name Priority Associated Diagnoses Date/Time LIFT THIGH Excessive And Redundant Skin And Subcutaneous Tissue documented as of this encounter Visit Diagnoses Not on filedocumented in this encounter Additional Health Concerns Assessment Noted Time PHQ-9 Depression Total Score: 13 02/27/2011 2:40 PM CD T documented as of this encounter
--- OUTSIDE RECORDS SUMMARY | 2022-07-24 15:20 | XMS_ITS | Encounter Summary ---
:1985 Author Organization [facility] Address [address] [place] [address] Care Team Providers Name Role Phone Unavailable Primary Care Provider Unavailable Encounter Details Date Type Department Care Team Description 08/16/2010 Hospital Encounter HX NO MAPPING Jerald Adams M.D. [address] [place], [place] [address] (Wo rk) Social History [...] How often do you attend religious or christianity Never 07/04/2019 services? 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 [address], [place] [phone] (Wo rk) Scheduled Procedures Name Priority Associated Diagnoses Date/Time LIFT THIGH Excessive And Redundant Skin And Subcutaneous Tissue documented as of this encounter Visit Diagnoses Not on filedocumented in this encounter
--- OUTSIDE RECORDS SUMMARY | 2022-07-24 15:20 | XMS_ITS | Encounter Summary ---
:1985 Author Organization [facility] Address [address] [place] [address] Care Team Providers Name Role Phone Unavailable Primary Care Provider Unavailable Encounter Details Date Type Department Care Team Description 08/18/2010 Hospital Encounter HX [facility] Steve Dupont M.D. [address] [place] [address] (Wo rk) Social History Tobacco Use Types [...] How often do you attend islam or yarsanism Never 07/04/2019 services? 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 - 08/18/2010 12:00 AM CDT [id number] IMPRESSION/REPORT/PLAN Migraines Plan: I am going to have her see Dr. Meehan for this to see if he has any other suggestions, as far as, medications. She has tried Imitrex in the past, but she says that makes her sick, although she might be willing to try it again. I will see her back in 4 weeks and have her see him in the next couple days if possible. CHIEF COMPLAINT/REASON FOR VISIT Nancy comes in today for OB check. HISTORY OF PRESENT ILLNESS The main complaint is that she has had migraines. She has tried multiple medications, but has had problems with those in the past. She does have some photophobia when she has these headaches. She was hospitalized overnight down in [place]. She otherwise is doing well, as far as, the is concerned except for some slight nausea, which may or may not be related to the migraine itself. PHYSICAL EXAM AREA EXAM TEXT ABDOMEN heart tones 160's. Fundal height 12 cm. NEURO Cranial nerves II-XII intact. BDB/mgd Signed Aidan Diaz M.D. Obstetrics & Gynecology Electronically Signed By:AIDAN DIAZ MD On 08/24/2010 02:34 PM Source: [facility] MHSDOLBEYNONRADSYS Document Id: [id number] documented in this encounter Miscellaneous Notes Miscellaneous - Aidan Diaz M.D. - 08/18/2010 8:52 AM CDT [place] [address] Visit Information Name: NANCY CAMPBELL Current Date: 08/18/2010 08:52:08 Primary Care Provider: AIDAN DIAZ MD [phone] Your Medications Here is a list of your medications. It is important to take your medications as directed. Use a pillbox or chart to help remind you to take your medications. Please let your doctor or nurse know if you have problems taking your medications. Medication/Strength Dose Route Frequency Indications/Special Instructions/Comments acetaminophen-hydrocodone (Vicodin 5 mg-500 mg oral tablet) 1 tab(s) Oral every 4-6 hours as needed for Pain ranitidine (Zantac) 150 mg multivitamin, ( Multivitamins) once a day Your Allergies & Intolerances Substance Reaction Symptoms Category Comments NKA Drug Your Problem List Problem Status Onset Comments Endometriosis of Pelvic Peritoneum Active 07/25/2004 Infertility, Female, of Unspecified Origin Active 07/25/2004 Your Recommendations We want to make sure [...] Chlamydia every 1 year Females Age 15-24 08/18/2010 Screening Pap Smear every 3 years Women 21-65 08/03/2010 08/02/2013 Checks for signs of cancer of the cervix. Lipid Panel every 5 years Age 20-75 08/18/2010 Checks blood for good (HDL) and bad (LDL) cholesterol. Know your numbers, they are one indicator of your risk for heart attack and stroke. Vaccine: Tetanus every 10 years 08/18/2010 Immunization to help prevent you from getting the seriousdisease Tetanus (Lockjaw). Your Upcoming Appointments Date Time Location Reason Provider 09/15/2010 10:00 [facility] CLINICAL DATA COORDINATOR ob Aidan Diaz MD Your Goals/Additional instructions: Source: [facility] POWERCHART Document Id: [id number] Miscellaneous - Aidan Diaz M.D. - 08/18/2010 8:52 AM CDT [place] [address] Visit Information Name: NANCY CAMPBELL Current Date: 08/18/2010 08:52:07 Primary Care Provider: AIDAN DIAZ MD [phone] NANCY CAMPBELL has been given the following list of medications: Your Medications It is important to take your medications as directed. Use a pill box or chart to help remind you to take your medications. Please let your doctor or nurse know if you have problems taking your medications. Medication/Strength Dose Route Frequency Indications/Special Instructions/Comments acetaminophen-hydrocodone (Vicodin 5 mg-500 mg oral tablet) 1 tab(s) Oral every 4-6 hours as needed for Pain ranitidine (Zantac) 150 mg multivitamin, ( Multivitamins) once a day Additional Information: Yes - Current list of reconciled medications is provided and explained to the patient and/or family, guardian/caregiver. Source: [facility] [employer] MediaCHART Document Id: [id number] Miscellaneous - Cecil Saleh L.P.N. - 08/18/2010 8:26 AM CDT Adult Paint Grinder Intake/History Adult Paint Grinder Intake/History Entered On: 08/18/2010 8:28 CDT Performed On: 08/18/2010 8:26 CDT by CECIL SALEH LPN Intake Chief Complaint: OB visit at 11 2/7 weeks c/o migraines seen at [facility] Date: 05/01/2010 Systolic Blood Pressure: 114mmHg Diastolic Blood Pressure: 70mmHg NIBP Mean: 85mmHg BP Location: Right upper extremity Actual Weight: 118.500kg(Converted to: 261lb 4oz) Dosing Weight Clinic: 118.50kg CECIL SALEH LPN - 08/18/2010 8:26 CDT Subjective Pain Symptoms: Yes CECIL SALEH LPN - 08/18/2010 8:26 CDT Pain Pain Assessment Grid Pain 1 Location: Head Laterality: Bilateral Intensity: 8 CECIL SALEH LPN - 08/18/2010 8:26 CDT Dependent Habits Tobacco Use/Currently Using: No CECIL SALEH LPN - 08/18/2010 8:26 CDT Allergies Allergies (Active) NKA Estimated Onset Date: Unspecified ; Created By: CECIL SALEH LPN; Reaction Status: Active ; Category: Drug ; Substance: NKA ; Type: Allergy ; Updated By: CECIL SALEH LPN; Reviewed Date: 08/03/2010 9:10 CDT Source: [facility] [employer] MediaCHART Document Id: [id number] CDT!20 documented in this encounter Plan of Treatment Upcoming Encounters Date Type Specialty Care Team Description 08/17/2022 Procedure visit Neurology Marina Winter M.D., M.P.H. [address] [phone] (Wo rk) Scheduled Procedures Name Priority Associated Diagnoses Date/Time LIFT THIGH Excessive And Redundant Skin And Subcutaneous Tissue documented as of this encounter Visit Diagnoses Not on filedocumented in this encounter
--- OUTSIDE RECORDS SUMMARY | 2022-07-24 15:20 | XMS_ITS | Encounter Summary ---
:1985 Author Organization [facility] Address [address] [place] [address] Care Team Providers Name Role Phone Unavailable Primary Care Provider Unavailable Encounter Details Date Type Department Care Team Description 12/27/2010 Hospital Encounter HX [facility] Steve Dupont M.D. [address] [place] [address] (Wo rk) Social History Tobacco Use Types [...] How often do you attend nondenominational or adventist Never 07/04/2019 services? 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 - 12/27/2010 12:00 AM CST [id number] IMPRESSION/REPORT/PLAN Please see sheet. Everything seems to be growing well at this point. We will see her back in 2 weeks. At that time we will do an ultrasound to check the placenta. CHIEF COMPLAINT/REASON FOR VISIT Nancy comes in today for OB check. BDB/mgd Signed Aidan Diaz M.D. Obstetrics & Gynecology Electronically Signed By: AIDAN DIAZ MD On: 12/29/2010 09:08 Source: [facility] MHSDOLBEYNONRADSYS Document Id: [id number] MANAGEMENT TEACHER documented in this encounter Miscellaneous Notes Miscellaneous - Aidan Diaz M.D. - 12/27/2010 3:29 PM CST Ambulatory [place] [address] Visit Information Name: NANCY CAMPBELL Current Date: 12/27/2010 15:29:06 Primary Care Provider: AIDAN DIAZ MD [phone] Your Medications Here is a list of your medications. It is important to take your medications as directed. Use a pillbox or chart to help remind you to take your medications. Please let your doctor or nurse know if you have problems taking your medications. Medication/Strength Dose Route Frequency Indications/Special Instructions/Comments azithromycin (Zithromax 500 mg oral tablet) 2,000 mg Oral once a day Pt to take four tabs, partner to take four tabs. propranolol (propranolol 10 mg oral tablet) 10 [...] Chlamydia every 1 year Females Age 15-24 12/06/2010 12/06/2011 Screening Pap Smear every 3 years Women 21-65 08/03/2010 08/02/2013 Checks for signs of cancer of the cervix. Lipid Panel every 5 years Age 20-75 12/27/2010 Checks blood for good (HDL) and bad (LDL) cholesterol. Know your numbers, they are one indicator of your risk for heart attack and stroke. Vaccine: Tetanus every 10 years 01/17/2009 01/15/2019 Immunization to help prevent you from getting the serious disease Tetanus (Kelly). Your Upcoming Appointments Date Time Location Reason Provider 01/10/2011 14:00 [facility] DOCUMENT PROCESSOR ob plus ultrasound Aidan Diaz MD Your Goals/Additional instructions: Source: [facility] POWERCHART Document Id: [id number] Miscellaneous - Aidan Diaz M.D. - 12/27/2010 3:29 PM CST Ambulatory [place] [address] Visit Information Name: NANCY CAMPBELL Current Date: 12/27/2010 15:29:05 Primary Care Provider: AIDAN DIAZ MD [phone] NANCY CAMPBELL has been given the following list of medications: Your Medications It is important to take your medications as directed. Use a pill box or chart to help remind you to take your medications. Please let your doctor or nurse know if you have problems taking your medications. Medication/Strength Dose Route Frequency Indications/Special Instructions/Comments azithromycin (Zithromax 500 mg oral tablet) 2,000 mg Oral once a day Pt to take four tabs, partner to take four tabs. propranolol (propranolol 10 mg oral tablet) 10 [...] to the patient and/or family, guardian/caregiver. Source: [facility] [employer] PartnersCHART Document Id: [id number] Miscellaneous - Cecil Saleh L.P.N. - 12/27/2010 2:05 PM CST Adult Curriculum Coordinator Intake/History Adult Curriculum Coordinator Intake/History Entered On: 12/27/2010 14:06 FARM MANAGEMENT TEACHER Performed On: 12/27/2010 14:05 FARM MANAGEMENT TEACHER by CECIL SALEH LPN Intake Chief Complaint: OB visit LMP Date: 05/01/2010 Systolic Blood Pressure: 114mmHg Diastolic Blood Pressure: 68mmHg NIBP Mean: 83mmHg BP Location: Left upper extremity Actual Weight: 111.400kg(Converted to: 245lb 10oz) Dosing Weight Clinic: 111.40kg CECIL SALEH LPN - 12/27/2010 14:05 FARM MANAGEMENT TEACHER Subjective Pain Symptoms: No CECIL SALEH LPN - 12/27/2010 14:05 FARM MANAGEMENT TEACHER Dependent Habits Tobacco Use/Currently Using: No CECIL SALEH LPN - 12/27/2010 14:05 FARM MANAGEMENT TEACHER Caffeine Use Grid Caffeine Use: Current Type: Soft drinks Frequency: Daily CECIL SALEH LPN - 12/27/2010 14:05 FARM MANAGEMENT TEACHER Allergies Allergies (Active) NKA Estimated Onset Date: Unspecified ; Created By: CECIL SALEH LPN; Reaction Status: Active ; Category: Drug ; Substance: NKA ; Type: Allergy ; Updated By: CECIL SALEH LPN; Reviewed Date: 09/15/2010 10:22 FARM MANAGEMENT TEACHER Source: [facility] [employer] Document Id: [id number] FARM MANAGEMENT TEACHER!19 MANAGEMENT TEACHER documented in this encounter Plan of Treatment Upcoming Encounters Date Type Specialty Care Team Description 08/17/2022 Procedure visit Neurology Marina Winter M.D., M.P.H. [address] [phone] (Wo rk) Scheduled Procedures Name Priority Associated Diagnoses Date/Time LIFT THIGH Excessive And Redundant Skin And Subcutaneous Tissue documented as of this encounter Visit Diagnoses Not on filedocumented in this encounter
--- OUTSIDE RECORDS SUMMARY | 2022-07-24 15:20 | XMS_ITS | Encounter Summary ---
:1985 Author Organization [facility] Address [address] [place] [address] Care Team Providers Name Role Phone Unavailable Primary Care Provider Unavailable Encounter Details Date Type Department Care Team Description 11/12/2010 Hospital Encounter HX NO MAPPING Provider, Historical Social History Tobacco Use Types Packs/Day Years [...] How often do you attend congregation or sabianism Never 07/04/2019 services? 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 [address] [place] [phone] (Wo rk) Scheduled Procedures Name Priority Associated Diagnoses Date/Time LIFT THIGH Excessive And Redundant Skin And Subcutaneous Tissue documented as of this encounter Visit Diagnoses Not on filedocumented in this encounter
--- OUTSIDE RECORDS SUMMARY | 2022-07-24 15:20 | XMS_ITS | Encounter Summary ---
:1985 Author Organization [facility] Address [address] [place] [address] Care Team Providers Name Role Phone Unavailable Primary Care Provider Unavailable Encounter Details Date Type Department Care Team Description 10/11/2010 Hospital Encounter HX [facility] Diana Rodriguez CNM Social History Tobacco Use Types Packs/Day Years [...] How often do you attend mu-ism or orthodox Never 07/04/2019 services? 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 Plan: She is going to go ahead and start monitoring. She knows that if her sugars are elevated and diet doesn't seem to bring them down then she needs to call. She has an appointment in [address] Diaz and I did remind her that she needs to bring her glucose log in with her so that he can review it and then I did send a prescription to [facility] in [place] for glucometer, test strips and lancets. If she has any problems, she just needs to call. l CHIEF COMPLAINT/REASON FOR VISIT She is here for a routine OB visit with Dr. Diaz, but also to have some diabetic education. HISTORY OF PRESENT ILLNESS She is a 25-year-old 3, para 1 with an EDC of 03/07/2011. She apparently had gestational diabetes with her last baby and had to do glucose monitoring, but did not require insulin or medication to control her blood sugars. She states she remembers how to test. She doesn't believe that she still has her glucometer, so would need a new one. PHYSICAL EXAM AREA EXAM TEXT GENERAL Refer the assessment form. She was instructed to monitor her glucose 4 times a day starting with first thing in the morning before she has had anything to eat and 2 hours after every meal. Her glucose goals are fasting blood sugar of 95 or less, 2-hour postprandial 120 or less. I did review how to use the glucometer and also how to do finger sticks. I also reviewed 2,000 calorie, 240 gram carbohydrate diet. I gave her written information regarding the diet and also the handbook on gestational diabetes. ADMINISTRATIVE BILLING Margin Code Total Time 15 minutes Counseling All in counseling Time PEB/mgd Signed Kiera Welch C.N.M. Obstetrical/Gynecological Services Electronically Signed By:DIANA WELCH CNM On 10/13/2010 01:26 PM Source: [facility] MHSDOLBEYNONRADSYS Document Id: [id number] EKEEPING ROOM INSPECTOR documented in this encounter Miscellaneous Notes Miscellaneous - Diana Welch CNM - 10/11/2010 11:08 AM CST Ambulatory [place] [address] Visit Information Name: NANCY CAMPBELL Current Date: 10/11/2010 11:08:42 Primary Care Provider: AIDAN DIAZ MD [id number] Your Medications Here is a list of [...] every 1 year Females Age 15-24 09/15/2010 09/15/2011 Screening Pap Smear every 3 years Women 21-65 08/03/2010 08/02/2013 Checks for signs of cancer of the cervix. Lipid Panel every 5 years Age 20-75 10/11/2010 Checks blood for good (HDL) and bad (LDL) cholesterol. Know your numbers, they are one indicator of your risk for heart attack and stroke. Vaccine: Tetanus every 10 years 01/17/2009 01/15/2019 Immunization to help prevent you from getting the serious disease Tetanus (Lockjaw). Your Upcoming Appointments Date Time Location Reason Provider No Appointments found Your Goals/Additional instructions: Source: [facility] POWERCHART Document Id: [id number] Electronically signed by Maria R, [facility] Measurement And Sensing Technician [id number] at 04/09/2017 5:54 AM CDT Miscellaneous - Linette Welchricalfred Tripp CNM - 10/11/2010 11:08 AM CST Ambulatory [place] [address] Visit Information Name: NANCY CAMPBELL Current Date: 10/11/2010 11:08:42 Primary Care Provider: AIDAN DIAZ MD [id number] NANCY CAMPBELL has been given the following [...] to the patient and/or family, guardian/caregiver. Source: [facility] POWERCHART Document Id: [id number] Electronically signed by Maria R [facility] Measurement And Sensing Technician [id number] at 04/09/2017 5:54 AM CDT Bunny - Nicki Vaz, R.N. - 10/11/2010 10:32 AM CST Adult Deer Farmer Intake/History Adult Deer Farmer Intake/History Entered On: 10/11/2010 10:33 HOUSEKEEPING ROOM INSPECTOR Performed On: 10/11/2010 10:32 HOUSEKEEPING ROOM INSPECTOR by NICKI PAIGE Intake Chief Complaint: OB visit 19 weeks Systolic Blood Pressure: 124mmHg Diastolic Blood Pressure: 56mmHg NIBP Mean: 79mmHg BP Location: Left upper extremity Actual Weight: 114.800kg(Converted to: 253lb 1oz) Dosing Weight Clinic: 114.80kg NICKI PAIGE - 10/11/2010 10:32 HOUSEKEEPING ROOM INSPECTOR Subjective Pain Symptoms: No GRECIA NICKI Fabricio - 10/11/2010 10:32 HOUSEKEEPING ROOM INSPECTOR Dependent Habits Tobacco Use/Currently Using: No GRECIA NICKI Regalado - 10/11/2010 10:32 HOUSEKEEPING ROOM INSPECTOR Caffeine Use Grid Caffeine Use: Current Type: Soft drinks Frequency: Daily GRECIA NICKI Regalado - 10/11/2010 10:32 HOUSEKEEPING ROOM INSPECTOR Allergies Allergies (Active) NKA Estimated Onset Date: Unspecified ; Created By: CECIL ALEGRIA LPN; Reaction Status: Active ; Category: Drug ; Substance: NKA ; Type: Allergy ; Updated By: CECIL ALEGRIA LPN; Reviewed Date: 09/15/2010 10:22 HOUSEKEEPING ROOM INSPECTOR Source: [employer] Document Id: [id number] HOUSEKEEPING ROOM INSPECTOR!18 EKEEPING ROOM INSPECTOR documented in this encounter Plan of Treatment Upcoming Encounters Date Type Specialty Care Team Description 08/17/2022 Procedure visit Neurology Marina Winter M.D., M.P.H. [address] [phone] (Wo rk) Scheduled Procedures Name Priority Associated Diagnoses Date/Time LIFT THIGH Excessive And Redundant Skin And Subcutaneous Tissue documented as of this encounter Visit Diagnoses Not on filedocumented in this encounter
--- OUTSIDE RECORDS SUMMARY | 2022-07-24 15:20 | XMS_ITS | Encounter Summary ---
:1985 Author Organization [facility] Address [address] [place] [address] Care Team Providers Name Role Phone Unavailable Primary Care Provider Unavailable Encounter Details Date Type Department Care Team Description 09/16/2010 Hospital Encounter HX NO MAPPING Jerald Adams M.D. [address] [place], [place] [address] (Wo rk) Social History [...] How often do you attend hoahaoism or buddhism Never 07/04/2019 services? 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 [address], [place] [phone] (Wo rk) Scheduled Procedures Name Priority Associated Diagnoses Date/Time LIFT THIGH Excessive And Redundant Skin And Subcutaneous Tissue documented as of this encounter Visit Diagnoses Not on filedocumented in this encounter
--- OUTSIDE RECORDS SUMMARY | 2022-07-24 15:20 | XMS_ITS | Encounter Summary ---
:1985 Author Organization [facility] Address [address] [place] [address] Care Team Providers Name Role Phone Unavailable Primary Care Provider Unavailable Encounter Details Date Type Department Care Team Description 02/07/2011 Hospital Encounter HX [facility] Steve Dupont M.D. [address] [place] [address] (Wo rk) Social History Tobacco Use Types [...] How often do you attend presybeterian or yarsanism Never 07/04/2019 services? 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 - 02/07/2011 12:00 AM CDT [id number] IMPRESSION/REPORT/PLAN We got a urine on her for chlamydia and gonorrhea secondary to questionable cheating by her boyfriend. She was positive for chlamydia early on in the . We will obtain that and see her back in a week. CHIEF COMPLAINT/REASON FOR VISIT Nancy comes in today for OB check. HISTORY OF PRESENT ILLNESS In general she is doing well. She is having a lot of pressure as of yet. Blood sugars reportedly okay, although she didn't bring in her sheet. From what she tells me they sound okay, although she is not the most reliable on that. PHYSICAL EXAM AREA EXAM TEXT ABDOMEN Fundal height 37, heart tones 140's. BDB/mgd Signed Aidan Diaz M.D. Obstetrics & Gynecology Electronically Signed By: AIDAN DIAZ MD On: 02/08/2011 03:18 Source: [facility] MHSDOLBEYNONRADSYS Document Id: [id number] documented in this encounter Procedure Notes Cecil Saleh L.PCiera - 02/07/2011 2:24 PM CDT Urine Dipstick Urine Dipstick Entered On: 02/07/2011 14:24 CDT Performed On: 02/07/2011 14:24 CDT by CECIL SALEH LPN Urine Dipstick UA Color POC: Chiynere UA Appear POC: Clear UA Protein POC: Trace UA Glucose POC: Negative CECIL SALEH LPN - 02/07/2011 14:24 CDT Source: [employer] Document Id: [id number] CDT!6 documented in this encounter Nursing Notes Cecil Saleh L.PCiera - 02/07/2011 3:30 PM CDT pt is scheduled for repeat on 02-28-2011. Arrival time of 9:30 for 11:30 a.m. case. FPW completed. Pt given instructions. Electronically Signed By: CECIL SALEH LPN On: 02/07/2011 03:32 Source: [employer] Document Id: [id number] documented in this encounter Miscellaneous Notes Miscellaneous - Aidan Diaz M.D. - 02/07/2011 2:41 PM CDT Ambulatory Patient Summary [address] [address] Visit Information Name: NANCY CAMPBELL Current Date: 02/07/2011 14:41:20 Primary Care Provider: AIDAN DIAZ MD Your [...] Last Done Next Due Additional Information Screening Pap Smear every 3 years Women 21-65 08/03/2010 08/02/2013 Checks for signs of cancer of the cervix. Lipid Panel every 5 years Age 20-75 02/07/2011 Checks blood for good (HDL) and bad (LDL) cholesterol. Know your numbers, they are one indicator of your risk for heart attack and stroke. Vaccine: Tetanus every 10 years 01/17/2009 01/15/2019 Immunization to help prevent you from getting the serious disease Tetanus (Lockjaw). Your Upcoming Appointments Date Time Location Reason Provider No Appointments found Your Goals/Additional instructions: Source: [facility] POWERCHART Document Id: [id number] Electronically signed by Conversion, [facility] Garbage Pick Up Worker [id number] at 04/08/2017 11:24 AM CDT Miscellaneous - Aidan Diaz M.D. - 02/07/2011 2:41 PM CDT [place] [address] Visit Information Name: NANCY CAMPBELL Current Date: 02/07/2011 14:41:19 Primary Care Provider: AIDAN DIAZ MD NANCY [...] to the patient and/or family, guardian/caregiver. Source: [facility] POWERCHART Document Id: [id number] Electronically signed by Conversion, [facility] Garbage Pick Up Worker [id number] at 04/08/2017 11:24 AM CDT Miscellaneous - Cecil Saleh LRodrigoPRodrigoN. - 02/07/2011 2:11 PM CDT Adult Media Marketing Coordinator Intake/History Adult Media Marketing Coordinator Intake/History Entered On: 02/07/2011 14:15 CDT Performed On: 02/07/2011 14:11 CDT by CECIL SALEH LPN Intake Chief Complaint: OB visit at 36 weeks LMP Date: 05/01/2010 Systolic Blood Pressure: 110mmHg Diastolic Blood Pressure: 80mmHg NIBP Mean: 90mmHg BP Location: Right upper extremity Actual Weight: 111.900kg(Converted to: 246lb 11oz) Dosing Weight Clinic: 111.90kg CECIL SALEH LPN - 02/07/2011 14:11 CDT Subjective Pain Symptoms: No CECIL SALEH LPN - 02/07/2011 14:11 CDT Dependent Habits Tobacco Use/Currently Using: No CECIL SALEH LPN - 02/07/2011 14:11 CDT Caffeine Use Grid Caffeine Use: Current Type: Soft drinks Frequency: Daily CECIL SALEH LPN - 02/07/2011 14:11 CDT Allergies Allergies (Active) NKA Estimated Onset Date: Unspecified ; Created By: CECIL SALEH LPN; Reaction Status: Active ; Category: Drug ; Substance: NKA ; Type: Allergy ; Updated By: CECIL SALEH LPN; Reviewed Date: 09/15/2010 10:22 AUTO PARTS MANAGER [facility] Document Id: [id number] CDT!19 documented in this encounter Plan of Treatment Upcoming Encounters Date Type Specialty Care Team Description 08/17/2022 Procedure visit Neurology Marina Winter M.D., M.P.H. [address] [place] [phone] (Wo rk) Scheduled Procedures Name Priority Associated Diagnoses Date/Time LIFT THIGH Excessive And Redundant Skin And Subcutaneous Tissue documented as of this encounter Visit Diagnoses Not on filedocumented in this encounter
--- OUTSIDE RECORDS SUMMARY | 2022-07-24 15:20 | XMS_ITS | Encounter Summary ---
:1985 Author Organization [facility] Address [address] [place] [address] Care Team Providers Name Role Phone Unavailable Primary Care Provider Unavailable Encounter Details Date Type Department Care Team Description 08/23/2010 Hospital Encounter HX [facility] Janie Moreno M.D. [address] [facility], [place] [phone] Social History Tobacco Use Types Packs/Day Years [...] How often do you attend mormon or judaism Never 07/04/2019 services? 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 - 08/23/2010 12:00 AM CDT [id number] IMPRESSION / REPORT / PLAN 1. This is a 25 year-old female with 13 week intrauterine presented with increasing migraine headaches lately. Currently she is not on any prophylactic medications. Her migraine headache is not resolved by taking Vicodin. Patient is stable from a neurological standpoint. There was no high blood pressure. Discussed with her about further evaluation and management. It was decided to try with low dose propanolol. Patient is aware of side effect and discussed with her about risk, benefits and alternatives because of status. She will be referred to see Dr. Carballo, Neurologist for further evaluation. Patient will take propranolol 10 mg by mouth twice a day. Need to monitor blood pressure and heart rate closely. We will check complete blood count, basic metabolic profile, sedimentation rate, liver profile, urinalysis with culture if it is indicated. 2. Intrauterine . She will follow up with Dr. Diaz. 3. Immunization. She was given influenza vaccination today. All questions answered. Thank you for allowing me to participate in the care of this patient. CHIEF COMPLAINT/REASON FOR VISIT This is a medical consultation requested by Dr. Diaz for migraine headaches. HISTORY OF PRESENT ILLNESS This is a 25 year-old white female with 13 week intrauterine who came in today for migraine headaches. She was diagnosed with migraine headaches at the age of 12. Lately she has been having a lot of migraine headaches. She went to the [facility] and she was treated in the hospital. Patient received IV hydration, Zofran and Nubain then she was discharged home. She called Dr. Diaz and she was given Vicodin. She has been taking Vicodin, it does not really help her migraines. Patient used Imitrex injections in the past. She could not breathe after using Imitrex injections. She was hyperventilating after that. She also tried Imitrex pills and it did not help her migraine either. She used to get migraine headaches every two months or so. It is more frequent lately. Usually the pain is on the left side in occipital area throbbing in nature associated with photophobia, phonophobia and nausea. Today she does not have headache. Currently she is taking vitamin. Only she does not take ranitidine. There was no fever, chills or neck pain. There was no focal neurological complaints. There as no loss of vision, scalp tenderness, tingling, numbness, weakness in extremities. There was no abnormal gait. Denies recent head injury or truama. She has not seen neurology recently for migraine headaches and she does not take prophylactic medications at this point. She denies change in diet or medication. There was no speech problem, dysphagia or odynophagia. CURRENT MEDICATIONS Post-visit Medication Reconciliation Reviewed and updated as per the EMR. Vicodin 5 x 500 mg 1 tablet by mouth every four to six hours as needed. Ranitidine 150 mg by mouth twice a day. Currently she is not taking vitamin 1 tablet by mouth daily. ALLERGIES No known drug allergies SYSTEMS REVIEW Patient did have shortness of breath Sunday evening, which is gone now. There was no exertional chest pain, decreased exercise tolerance. There was no orthopnea, paroxysmal nocturnal dyspnea, palpitations or peripheral edema. Other systems are reviewed and they are negative. PAST MEDICAL/SURGICAL HISTORY History of endometriosis. Gestational diabetes mellitus History of miscarriage Migraine headaches History of heartbeat infection History of depression Tattoo on left leg, right leg and back. Past surgical history Status-post tonsillectomy and adenoidectomy, laparoscopic exam, section, cholecystectomy. PREVENTIVE SERVICES Reviewed as per EMR. SOCIAL HISTORY Patient is . She has 3 pregnancies. She denies alcohol or drug abuse. FAMILY HISTORY Father had asthma, diabetes mellitus, hypertension, heart disease and thyroid disorder. Mother has hypertension, hyperlipidemia. Maternal grandfather had arthritis. VITAL SIGNS DATE/TIME 09-04-2010 WEIGHT 117 kg TEMPERATURE 37 degreesC RESP RATE 20 / min PULSE 90 SYSTOLIC 110 repeat 118 DIASTOLIC 58 64 PHYSICAL EXAM AREA EXAM TEXT GENERAL Patient is sitting with no distress. Able to talk without interruption. SKIN No rash, bruise or nodule. She has tattoos on the left, right leg and back. HEAD No facial rash, asymmetry or sinus tenderness. There was no scalp tenderness. EYES PERRLA, EOMI. No pallor, icterus or conjunctivitis. ENT No nasal congestion, discharge or bleeding. There is no ear infection. Normal tympanic membrane. No mastoid tenderness. Tongue is moist, midline. No oral lesion or dehydration. LYMPH NODES There was no cervical or supraclavicular lymphadenopathy. THYROID No thyromegaly. No thyroid thrill or bruit. HEART Regular rhythm. There is no S3, gallop, no obvious murmur. LUNGS O2 saturation is 99% on room air. Normal respiratory effort. Clear to auscultation. Normal percussion. ABDOMEN Moves with respiration. Bowel sounds present. Soft. No rebound, tenderness, guarding or rigidity. No organomegaly. SPINE No scoliosis or kyphosis. No spinous tenderness or mass. JOINT No joint swelling or deformity. No decreased range of motion. EXTREMITIES No clubbing, cyanosis, edema, infection, or calf tenderness. GAIT No abnormal gait. MENTAL Alert and oriented x 3. Normal mood and affect. NEURO Grossly nonfocal exam. PP/kmk Signed Janie Meehan M.D. Internal Medicine CC: Aidan Diaz M.D. Obstetrics & Gynecology [address] [place] [id number] Electronically Signed By:JANIE MEEHAN MD On 09/19/2010 09:04 AM Modified by:JANIE MEEHAN MD On 09/19/2010 09:03 AM Source: [facility] MHSDOLBEYNONRADSYS Document Id: [id number] RVISOR RICE MILLING documented in this encounter Miscellaneous Notes Miscellaneous - Janie Meehan M.D. - 08/23/2010 1:42 PM CDT Reminder Msg From: JANIE MEEHAN MD To: TIFFANY GALICIA Sent: 08/23/2010 13:42:38 CDT ! Show up: 08/23/2010 13:38:00 CDT Subject: Reminder Msg Actions: Notify patient of results Due Date/Time: 08/23/2010 13:38:00 CDT Source: [facility] POWERCHART Document Id: [id number] Electronically signed by [facility] Patient Care Provider [id number] at 04/09/2017 12:31 AM CDT Miscellaneous - Janie Meehan M.D. - 08/23/2010 12:02 PM CDT Ambulatory Patient Summary [address] [address] Visit Information Name: NANCY CAMPBELL Current Date: 08/23/2010 12:02:17 Primary Care Provider: AIDAN DIAZ MD [id number] Your Medications Here is a list of [...] Origin Active 07/25/2004 Migraine headache Active 08/23/2010 Your Recommendations We want to make sure [...] Chlamydia every 1 year Females Age 15-24 08/23/2010 Screening Pap Smear every 3 years Women 21-65 08/03/2010 08/02/2013 Checks for signs of cancer of the cervix. Lipid Panel every 5 years Age 20-75 08/23/2010 Checks blood for good (HDL) and bad (LDL) cholesterol. Know your numbers, they are one indicator of your risk for heart attack and stroke. Vaccine: Tetanus every 10 years 04/19/1999 04/16/2009 Immunization to help prevent you from getting the serious disease Tetanus (Lockjaw). Your Upcoming Appointments Date Time Location Reason Provider 09/15/2010 10:00 [facility] ob Aidan Diaz MD Your Goals/Additional instructions: Source: [facility] POWERCHART Document Id: [id number] Electronically signed by Maria R [facility] Patient Care Provider [id number] at 04/09/2017 12:31 AM CDT Bunny - Janie Meehan M.D. - 08/23/2010 12:02 PM CDT Ambulatory Depart Summary [address] [address] Visit Information Name: NANCY CAMPBELL Current Date: 08/23/2010 12:01:58 Primary Care Provider: AIDAN DIAZ MD [phone] NANCY CAMPBELL has been given the following [...] to the patient and/or family, guardian/caregiver. Source: [facility] [employer] Document Id: [id number] Electronically signed by Maria R [facility] Patient Care Provider [id number] at 04/09/2017 12:31 AM CDT Bunny - Janie Meehan M.D. - 08/23/2010 11:53 AM CDT Ambulatory Vitals Height Weight Ambulatory Vitals Height Weight Entered On: 08/23/2010 11:57 CDT Performed On: 08/23/2010 11:53 CDT by JANIE MEEHAN MD Vitals/Ht/Wt Peripheral Pulse Rate: 88/min Systolic Blood Pressure: 118mmHg Diastolic Blood Pressure: 64mmHg NIBP Mean: 82mmHg BP Location: Left upper extremity Heart Rhythm: Regular JANIE MEEHAN MD - 08/23/2010 11:53 CDT Source: [facility] [employer] Document Id: [id number] CDT!8 Miscellaneous - Conversion, Historical Provider Ser - 08/23/2010 11:22 AM CDT Adult Terrazzo Roller Intake/History Adult Terrazzo Roller Intake/History Entered On: 08/23/2010 11:26 CDT Performed On: 08/23/2010 11:22 CDT by ALIX DIETRICH Intake Chief Complaint: Migraines. Vicodon does not help. , 13 weeks. Temperature Core: 37.0C(Converted to: 98.6DegF) Apical Heart Rate: 90/min Respiratory Rate: 20/min Systolic Blood Pressure: 110mmHg Diastolic Blood Pressure: 58mmHg NIBP Mean: 75mmHg BP Location: Left upper extremity SpO2: 99% Heart Rhythm: Regular Actual Weight: 117.000kg(Converted to: 257lb 15oz) Dosing Weight Clinic: 117.00kg ALIX DIETRICH - 08/23/2010 11:22 CDT Subjective Pain Symptoms: No ALIX DIETRICH - 08/23/2010 11:22 CDT Dependent Habits Tobacco Use/Currently Using: No Alcohol Use: No ALIX DIETRICH - 08/23/2010 11:22 CDT Caffeine Use Grid Caffeine Use: Current Type: Soft drinks Frequency: Daily ALIX DIETRICH - 08/23/2010 11:22 CDT Allergies Allergies (Active) NKA Estimated Onset Date: Unspecified ; Created By: CECIL ALEGRIA LPN; Reaction Status: Active ; Category: Drug ; Substance: NKA ; Type: Allergy ; Updated By: CECIL ALEGRIA LPN; Reviewed Date: 08/03/2010 9:10 CDT Source: [facility] POWERCHART Document Id: [id number] CDT!24 documented in this encounter Plan of Treatment Upcoming Encounters Date Type Specialty Care Team Description 08/17/2022 Procedure visit Neurology Marina Winter M.D., M.P.H. [address] [place] [address] [phone] (Wo rk) Scheduled Procedures Name Priority Associated Diagnoses Date/Time LIFT THIGH Excessive And Redundant Skin And Subcutaneous Tissue documented as of this encounter Visit Diagnoses Not on filedocumented in this encounter
--- OUTSIDE RECORDS SUMMARY | 2022-07-24 15:20 | XMS_ITS | Encounter Summary ---
:1985 Author Organization [facility] Address [address] [place] [address] Care Team Providers Name Role Phone Unavailable Primary Care Provider Unavailable Encounter Details Date Type Department Care Team Description 05/05/2011 Hospital Encounter HX NO MAPPING Luciano Francois M.D. [address] [place], [place] [phone] (Wo rk) Social History [...] How often do you attend congregational or yazdanism Never 07/04/2019 services? 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 [address] [place] [phone] (Wo rk) Scheduled Procedures Name Priority Associated Diagnoses Date/Time LIFT THIGH Excessive And Redundant Skin And Subcutaneous Tissue documented as of this encounter Visit Diagnoses Not on filedocumented in this encounter Additional Health Concerns Assessment Noted Time PHQ-9 Depression Total Score: 13 02/27/2011 2:40 PM CD T documented as of this encounter
--- OUTSIDE RECORDS SUMMARY | 2022-07-24 15:20 | XMS_ITS | Encounter Summary ---
:1985 Author Organization [facility] Address [address] [place] [address] Care Team Providers Name Role Phone Unavailable Primary Care Provider Unavailable Encounter Details Date Type Department Care Team Description 02/14/2011 Hospital Encounter HX [facility] Steve Dupont M.D. [address] [place] [address] (Wo rk) Social History Tobacco Use Types [...] How often do you attend holiness or methodist Never 07/04/2019 services? 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 - 02/14/2011 12:00 AM CDT [id number] IMPRESSION/REPORT/PLAN Labor precautions given. I will see her back in 1 week. She is set up on the for repeat . CHIEF COMPLAINT/REASON FOR VISIT Maria Alejandra comes in today for OB check. HISTORY OF PRESENT ILLNESS She is 37 weeks, doing well. Blood sugars are generally pretty good. BDB/mgd Signed Aidan Diaz M.D. Obstetrics & Gynecology Electronically Signed By: AIDAN DIAZ MD On: 02/15/2011 02:47 Source: [facility] MHSDOLBEYNONRADSYS Document Id: [id number] documented in this encounter Miscellaneous Notes Miscellaneous - Cecil Saleh L.P.N. - 02/14/2011 2:17 PM CDT Adult Deputy Editor In Chief Intake/History Adult Deputy Editor In Chief Intake/History Entered On: 02/14/2011 14:18 CDT Performed On: 02/14/2011 14:17 CDT by CECIL SALEH LPN Intake Chief Complaint: OB visit at 37 weeks LMP Date: 05/01/2010 Systolic Blood Pressure: 104mmHg Diastolic Blood Pressure: 72mmHg NIBP Mean: 83mmHg BP Location: Left upper extremity Actual Weight: 112.300kg(Converted to: 247lb 9oz) Dosing Weight Clinic: 112.30kg CECIL SALEH LPN - 02/14/2011 14:17 CDT Subjective Pain Symptoms: No CECIL SALEH LPN - 02/14/2011 14:17 CDT Dependent Habits Tobacco Use/Currently Using: No CECIL SALEH LPN - 02/14/2011 14:17 CDT Caffeine Use Grid Caffeine Use: Current Type: Soft drinks Frequency: Daily CECIL SALEH LPN - 02/14/2011 14:17 CDT Allergies Allergies (Active) NKA Estimated Onset Date: Unspecified ; Created By: CECIL SALEH LPN; Reaction Status: Active ; Category: Drug ; Substance: NKA ; Type: Allergy ; Updated By: CECIL SALEH LPN; Reviewed Date: 09/15/2010 10:22 CONSUMER MARKETING ANALYST Source: [facility] POWERCHART Document Id: [id number] CDT!19 documented in this encounter Plan of Treatment Upcoming Encounters Date Type Specialty Care Team Description 08/17/2022 Procedure visit Neurology Marina Winter M.D., M.P.H. [address] [phone] (Wo rk) Scheduled Procedures Name Priority Associated Diagnoses Date/Time LIFT THIGH Excessive And Redundant Skin And Subcutaneous Tissue documented as of this encounter Visit Diagnoses Not on filedocumented in this encounter
--- OUTSIDE RECORDS SUMMARY | 2022-07-24 15:20 | XMS_ITS | Encounter Summary ---
:1985 Author Organization [facility] Address [address] [place] [address] Care Team Providers Name Role Phone Unavailable Primary Care Provider Unavailable Encounter Details Date Type Department Care Team Description 05/05/2011 Hospital Encounter HX NO MAPPING Luciano Francois M.D. [address] [place], [place] [phone] (Wo rk) Social History [...] How often do you attend buddhism or baptism Never 07/04/2019 services? 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 [address] [place] [phone] (Wo rk) Scheduled Procedures Name Priority Associated Diagnoses Date/Time LIFT THIGH Excessive And Redundant Skin And Subcutaneous Tissue documented as of this encounter Visit Diagnoses Not on filedocumented in this encounter Additional Health Concerns Assessment Noted Time PHQ-9 Depression Total Score: 13 02/27/2011 2:40 PM CD T documented as of this encounter
--- OUTSIDE RECORDS SUMMARY | 2022-07-24 15:20 | XMS_ITS | Encounter Summary ---
:1985 Author Organization [facility] Address [address] [place] [address] Care Team Providers Name Role Phone Unavailable Primary Care Provider Unavailable Encounter Details Date Type Department Care Team Description 10/19/2004 Hospital Encounter HX [facility] Jose Ortega Jr., M.D. [address] [place], [place] [phone] (Wo rk) Social History [...] How often do you attend episcopal or uatsdin Never 07/04/2019 services? 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 [address] [phone] (Wo rk) Scheduled Procedures Name Priority Associated Diagnoses Date/Time LIFT THIGH Excessive And Redundant Skin And Subcutaneous Tissue documented as of this encounter Visit Diagnoses Not on filedocumented in this encounter
--- OUTSIDE RECORDS SUMMARY | 2022-07-24 15:20 | XMS_ITS | Encounter Summary ---
:1985 Author Organization [facility] Address [address] [place] [address] Care Team Providers Name Role Phone Unavailable Primary Care Provider Unavailable Encounter Details Date Type Department Care Team Description 10/11/2010 Hospital Encounter HX [facility] Steve Dupont M.D. [address] [place] [address] (Wo rk) Social History Tobacco Use Types [...] How often do you attend mu-ism or samaritan Never 07/04/2019 services? 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 - 10/11/2010 12:00 AM CST [id number] IMPRESSION/REPORT/PLAN Ultrasound is done. Please see ultrasound sheet. No evidence of any abnormalities noted. Patient is aware this is not a complete screening test for congenital defects. It appears to be a male infant. Will have her back in 3 weeks. CHIEF COMPLAINT/REASON FOR VISIT Nancy comes in today for OB check. She is also here for ultrasound. PHYSICAL EXAM AREA EXAM TEXT ABDOMEN Fundal height consistent with her dates. heart tones were in the 170 range. BDB/mgd Signed Aidan Diaz M.D. Obstetrics & Gynecology Electronically Signed By:AIDAN DIAZ MD On 10/17/2010 11:41 AM Source: [facility] MHSDOLBEYNONRADSYS Document Id: [id number] MOBILE DEVELOPER documented in this encounter Miscellaneous Notes Miscellaneous - Aidan Diaz M.D. - 10/11/2010 11:02 AM CST [place] [address] Visit Information Name: NANCY CAMPBELL Current Date: 10/11/2010 11:02:16 Primary Care Provider: AIDAN DIAZ MD [id number] Your Medications Here is a list of [...] No Appointments found Your Goals/Additional instructions: Source: [facility] POWERCHART Document Id: [id number] Electronically signed by Maria R [facility] Primary Counselor [id number] at 04/09/2017 5:54 AM CDT Miscellaneous - Aidan Diaz M.D. - 10/11/2010 11:02 AM CST [place] [address] Visit Information Name: NANCY CAMPBELL Current Date: 10/11/2010 11:02:15 Primary Care Provider: AIDAN DIAZ MD [id number] NANCY CAMPBELL has been given the following [...] to the patient and/or family, guardian/caregiver. Source: [facility] POWERCHART Document Id: [id number] Electronically signed by Maria R [facility] Primary Counselor [id number] at 04/09/2017 5:54 AM CDT documented in this encounter Plan of Treatment Upcoming Encounters Date Type Specialty Care Team Description 08/17/2022 Procedure visit Neurology Marina Winter M.D., M.P.H. [address] [phone] (Wo rk) Scheduled Procedures Name Priority Associated Diagnoses Date/Time LIFT THIGH Excessive And Redundant Skin And Subcutaneous Tissue documented as of this encounter Visit Diagnoses Not on filedocumented in this encounter
--- OUTSIDE RECORDS SUMMARY | 2022-07-24 15:20 | XMS_ITS | Encounter Summary ---
:1985 Author Organization [facility] Address [address] [place] [address] Care Team Providers Name Role Phone Unavailable Primary Care Provider Unavailable Encounter Details Date Type Department Care Team Description 09/16/2010 Hospital Encounter HX NO MAPPING Jerald Adams M.D. [address] [place], [place] [address] (Wo rk) Social History [...] How often do you attend caodaism or religion Never 07/04/2019 services? 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 [address], [place] [phone] (Wo rk) Scheduled Procedures Name Priority Associated Diagnoses Date/Time LIFT THIGH Excessive And Redundant Skin And Subcutaneous Tissue documented as of this encounter Visit Diagnoses Not on filedocumented in this encounter
--- OUTSIDE RECORDS SUMMARY | 2022-07-24 15:20 | XMS_ITS | Encounter Summary ---
:1985 Author Organization [facility] Address [address] [place] [address] Care Team Providers Name Role Phone Unavailable Primary Care Provider Unavailable Encounter Details Date Type Department Care Team Description 01/24/2011 Hospital Encounter HX [facility] Steve Dupont M.D. [address] [place] [address] (Wo rk) Social History Tobacco [...] How often do you attend adventism or uatsdin Never 07/04/2019 services? 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 - 01/24/2011 12:00 AM CDT [id number] IMPRESSION/REPORT/PLAN She has not been following her blood sugars as I have asked. I have tried to reiterate to her again to bring those in with her and check them daily 4 times a day. CHIEF COMPLAINT/REASON FOR VISIT Nancy comes in today for OB check. HISTORY OF PRESENT ILLNESS She has been having some contractions on and off. PHYSICAL EXAM AREA EXAM TEXT ABDOMEN Fundal height 36, heart tones 160's. GENITALIA Cervix is fingertip and long. BDB/mgd Signed Aidan Diaz M.D. Obstetrics & Gynecology Electronically Signed By: AIDAN DIAZ MD On: 01/25/2011 10:54 Source: [facility] MHSDOLBEYNONRADSYS Document Id: [id number] documented in this encounter Miscellaneous Notes Miscellaneous - Aidan Diaz M.D. - 01/24/2011 2:07 PM CDT Ambulatory [place] [address] Visit Information Name: NANCY CAMPBELL Current Date: 01/24/2011 14:07:27 Primary Care Provider: AIDAN DIAZ MD Your [...] Lipid Panel every 5 years Age 20-75 01/24/2011 Checks blood for good (HDL) and bad (LDL) cholesterol. Know your numbers, they are one indicator of your risk for heart attack and stroke. Vaccine: Tetanus every 10 years 01/17/2009 01/15/2019 Immunization to help prevent you from getting the serious disease Tetanus (Lockjaw). Your Upcoming Appointments Date Time Location Reason Provider No Appointments found Your Goals/Additional instructions: Source: [facility] POWERCHART Document Id: [id number] Miscellaneous - Aidan Diaz M.D. - 01/24/2011 2:07 PM CDT [place] [address] Visit Information Name: NANCY CAMPBELL Current Date: 01/24/2011 14:07:27 Primary Care Provider: AIDAN DIAZ MD NANCY [...] patient and/or family, guardian/caregiver. Source: [facility] BioMimetic TherapeuticsCHART Document Id: [id number] Miscellaneous - Cecil Saleh L.P.N. 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 Intake/History Entered On: 01/24/2011 13:51 CDT Performed On: 01/24/2011 13:50 CDT by CECIL SALEH LPN Intake Chief Complaint: OB visit at 34 weeks LMP Date: 05/01/2010 Systolic Blood Pressure: 120mmHg Diastolic Blood Pressure: 72mmHg NIBP Mean: 88mmHg BP Location: Left upper extremity Actual Weight: 111.500kg(Converted to: 245lb 13oz) Dosing Weight Clinic: 111.50kg CECIL SALEH LPN - 01/24/2011 13:50 CDT Subjective Pain Symptoms: No CECIL SALEH LPN - 01/24/2011 13:50 CDT Dependent Habits Tobacco Use/Currently Using: No CECIL SALEH LPN - 01/24/2011 13:50 CDT Caffeine Use Grid Caffeine Use: Current Type: Soft drinks Frequency: Daily CECIL SALEH LPN - 01/24/2011 13:50 CDT Allergies Allergies (Active) NKA Estimated Onset Date: Unspecified ; Created By: CECIL SALEH LPN; Reaction Status: Active ; Category: Drug ; Substance: NKA ; Type: Allergy ; Updated By: CECIL SALEH LPN; Reviewed Date: 09/15/2010 10:22 FLAMER AFTER LASTING Source: [facility] BioM[employer] TherapeuticsCHART Document Id: [id number] CDT!19 documented in this encounter Plan of Treatment Upcoming Encounters Date Type Specialty Care Team Description 08/17/2022 Procedure visit Neurology Marina Winter M.D., M.P.H. [address] [phone] (Wo rk) Scheduled Procedures Name Priority Associated Diagnoses Date/Time LIFT THIGH Excessive And Redundant Skin And Subcutaneous Tissue documented as of this encounter Visit Diagnoses Not on filedocumented in this encounter
--- OUTSIDE RECORDS SUMMARY | 2022-07-24 15:20 | XMS_ITS | Encounter Summary ---
:1985 Author Organization [facility] Address [address] [place] [address] Care Team Providers Name Role Phone Unavailable Primary Care Provider Unavailable Encounter Details Date Type Department Care Team Description 01/10/2011 Hospital Encounter HX [facility] Steve Dupont M.D. [address] [place] [address] (Wo rk) Social History Tobacco Use Types [...] How often do you attend worship or amish Never 07/04/2019 services? 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 - 01/10/2011 12:00 AM CST [id number] IMPRESSION/REPORT/PLAN Going to take her off work, see her back in 2 weeks. Precautions given. We did do a limited ultrasound here today looking at the placenta secondary to low lying placenta early on in and that was no longer low lying and looks fine. CHIEF COMPLAINT/REASON FOR VISIT Nancy comes in today for OB check. HISTORY OF PRESENT ILLNESS In general she has been miserable. She is having a hard time just laying flat here because of so much pelvic pressure. She has been having some contractions on and off. PHYSICAL EXAM AREA EXAM TEXT GENITALIA Cervix is fingertip, soft, long. Feels like a multiparous cervix. BDB/mgd Signed Aidan Diaz M.D. Obstetrics & Gynecology Electronically Signed By: AIDAN DIAZ MD On: 01/16/2011 09:10 Source: [facility] MHSDOLBEYNONRADSYS Document Id: [id number] documented in this encounter Miscellaneous Notes Miscellaneous - Aidan Diaz M.D. - 01/10/2011 9:32 AM CST Ambulatory [place] [address] Visit Information Name: NANCY CAMPBELL Current Date: 01/10/2011 09:32:07 Primary Care Provider: AIDAN DIAZ MD [id number] Your Medications Here is a list of [...] Lipid Panel every 5 years Age 20-75 01/10/2011 Checks blood for good (HDL) and bad (LDL) cholesterol. Know your numbers, they are one indicator of your risk for heart attack and stroke. Vaccine: Tetanus every 10 years 01/17/2009 01/15/2019 Immunization to help prevent you from getting the serious disease Tetanus (Lockjaw). Your Upcoming Appointments Date Time Location Reason Provider No Appointments found Your Goals/Additional instructions: Source: [facility] POWERCHART Document Id: [id number] Miscellaneous - Aidan Diaz M.D. - 01/10/2011 9:32 AM CST Amb[place] [address] Visit Information Name: NANCY CAMPBELL Current Date: 01/10/2011 09:32:05 Primary Care Provider: AIDAN DIAZ MD [id number] NANCY CAMPBELL has been given the following [...] to the patient and/or family, guardian/caregiver. Source: [facility] ProtAbCHART Document Id: [id number] Miscellaneous - Cecil Saleh L.PRodrigoN. 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 Intake/History Entered On: 01/10/2011 9:02 SUMO WRESTLER Performed On: 01/10/2011 9:00 SUMO WRESTLER by CECIL SALEH LPN Intake Chief Complaint: OB US LMP Date: 05/01/2010 Systolic Blood Pressure: 116mmHg Diastolic Blood Pressure: 70mmHg NIBP Mean: 85mmHg BP Location: Right upper extremity Actual Weight: 111.200kg(Converted to: 245lb 2oz) Dosing Weight Clinic: 111.20kg CECIL SALEH LPN - 01/10/2011 9:00 SUMO WRESTLER Subjective Pain Symptoms: No CECIL SALEH LPN - 01/10/2011 9:00 SUMO WRESTLER Dependent Habits Tobacco Use/Currently Using: No CECIL SALEH LPN - 01/10/2011 9:00 SUMO WRESTLER Caffeine Use Grid Caffeine Use: Current Type: Soft drinks Frequency: Daily CECIL SALEH LPN - 01/10/2011 9:00 SUMO WRESTLER Allergies Allergies (Active) NKA Estimated Onset Date: Unspecified ; Created By: CECIL SALEH LPN; Reaction Status: Active ; Category: Drug ; Substance: NKA ; Type: Allergy ; Updated By: CECIL SALEH LPN; Reviewed Date: 09/15/2010 10:22 SUMO WRESTLER Source: [facility] ProtAbCHART Document Id: [id number] SUMO WRESTLER!19 WRESTLER documented in this encounter Plan of Treatment Upcoming Encounters Date Type Specialty Care Team Description 08/17/2022 Procedure visit Neurology Marina Winter M.D., M.P.H. [address] [phone] (Wo rk) Scheduled Procedures Name Priority Associated Diagnoses Date/Time LIFT THIGH Excessive And Redundant Skin And Subcutaneous Tissue documented as of this encounter Visit Diagnoses Not on filedocumented in this encounter
--- OUTSIDE RECORDS SUMMARY | 2022-07-24 15:20 | XMS_ITS | Encounter Summary ---
:1985 Author Organization [facility] Address [address] [place] [address] Care Team Providers Name Role Phone Unavailable Primary Care Provider Unavailable Encounter Details Date Type Department Care Team Description 05/23/2011 Hospital Encounter HX [facility] Steve Dupont M.D. [address] [place] [address] (Wo rk) Social History Tobacco Use Types [...] How often do you attend congregational or restoration Never 07/04/2019 services? 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 - 05/23/2011 12:00 AM CDT [id number] CHIEF COMPLAINT/REASON FOR VISIT Nancy comes in for Depo shot, also wanting to see how she is doing . HISTORY OF PRESENT ILLNESS She has had some issues in the past with some problems at home. She states she is doing quite well. She is in with the kids today and they all look to be quite happy. She says things with her relationship are going quite well. VITAL SIGNS Stable IMPRESSION/REPORT/PLAN Her hemoglobin today was 13.2. We will give her the Depo shot. We will see her back in 3 months. We will do an annual exam at that point. BDB/mgd Signed Aidan Diaz M.D. Obstetrics & Gynecology Electronically Signed By: AIDAN DIAZ MD On: 05/24/2011 09:44 AM Source: [facility] MHSDOLBEYNONRADSYS Document Id: [id number] documented in this encounter Procedure Notes Cecil Saleh L.P.Art - 05/23/2011 11:42 AM CDT Depo-Provera Administration Depo-Provera Administration Entered On: 05/23/2011 11:45 CDT Performed On: 05/23/2011 11:42 CDT by CECIL SALEH LPN Depo-Provera Administration Dosing Weight: 103.500kg Pap within last 12 months: Yes Last Depo-Provera Given: 02/27/2011 CDT Return appointment: 08/14/2011 CDT Needs test: No Depo-Provera Administration Comments: lot [id number] exp CECIL SALEH LPN - 05/23/2011 11:42 CDT Source: [facility] POWERCHART Document Id: [id number] CDT!8 Cecil Saleh L.P.NRodrigo - 05/23/2011 11:27 AM CDT Hemoglobin POC Hemoglobin POC Entered On: 05/23/2011 11:36 CDT Performed On: 05/23/2011 11:27 CDT by CECIL SALEH LPN Hemoglobin POC Hemoglobin POC Result: 13.7mg/dL Site: Finger, Right CECIL SALEH LPN - 05/23/2011 11:27 CDT Source: [facility] Document Id: [id number] CDT!4 documented in this encounter Miscellaneous Notes Miscellaneous - Cecil Saleh L.P.N. 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 Intake/History Entered On: 05/23/2011 11:46 CDT Performed On: 05/23/2011 11:46 CDT by CECIL SALEH LPN Intake Chief Complaint: depo Actual Weight: 103.500kg(Converted to: 228lb 3oz) Dosing Weight Clinic: 103.50kg CECIL SALEH LPN - 05/23/2011 11:46 CDT Subjective Pain Symptoms: No CECIL SALEH LPN - 05/23/2011 11:46 CDT Dependent Habits Tobacco Use/Currently Using: No CECIL SALEH LPN - 05/23/2011 11:46 CDT Tobacco Use Grid Other Tobacco Frequency: non CECIL SALEH LPN - 05/23/2011 11:46 CDT Caffeine Use Grid Caffeine Use: Current Type: Soft drinks Frequency: Daily CECIL SALEH LPN - 05/23/2011 11:46 CDT Allergy Allergies (Active) NKA Estimated Onset Date: Unspecified ; Created By: CECIL SALEH LPN; Reaction Status: Active ; Category: Drug ; Substance: NKA ; Type: Allergy ; Updated By: CECIL SALEH LPN; Reviewed Date: 02/28/2011 15:58 CDT Source: [facility] Document Id: [id number] CDT!17 Miscellaneous - Aidan Diaz M.D. - 05/23/2011 11:25 AM CDT Ambulatory Patient Summary [place] [facility] [address] [place] [address] Visit Information Name: NANCY CAMPBELL Current Date: 05/23/2011 11:25:15 Primary Care Provider: AIDAN DIAZ MD Your Medications Here is a list of your medications. It is important to take your medications as directed. Use a pillbox or chart to help remind you to take your medications. Please let your doctor or nurse know if you have problems taking your medications. Medication/Strength Dose Route Frequency Indications/Special Instructions/Comments citalopram (Celexa 40 mg oral tablet) 40 mg Oral once a day citalopram (Celexa 20 mg oral tablet) 20 mg Oral once a day ibuprofen (Ibu 600 mg oral tablet) 600 mg Oral four times a day hydrOXYzine (Vistaril 25 mg oral capsule) 25 mg Oral four times a day as needed for Migraine headache ibuprofen (ibuprofen 600 mg oral tablet) 600 mg Oral every 6 hours as needed for Pain ferrous sulfate (ferrous sulfate) docusate (Colace) propranolol [...] Lipid Panel every 5 years Age 20-75 05/23/2011 Checks blood for good (HDL) and bad (LDL) cholesterol. Know your numbers, they are one indicator of your risk for heart attack and stroke. Vaccine: Tetanus every 10 years 01/17/2009 01/15/2019 Immunization to help prevent you from getting the serious disease Tetanus (Lockjaw). Your Upcoming Appointments Date Time Location Reason Provider No Appointments found Your Goals/Additional instructions: Source: [facility] POWERCHART Document Id: [id number] Electronically signed by Maria R [facility] Conflicts Analyst [id number] at 04/08/2017 3:59 PM CDT Miscellaneous - Aidan Diaz M.D. - 05/23/2011 11:25 AM CDT [place] [address] Visit Information Name: NANCY CAMPBELL Current Date: 05/23/2011 11:25:14 Primary Care Provider: AIDAN DIAZ MD NANCY CAMPBELL has been given the following list of medications: Your Medications It is important to take your medications as directed. Use a pill box or chart to help remind you to take your medications. Please let your doctor or nurse know if you have problems taking your medications. Medication/Strength Dose Route Frequency Indications/Special Instructions/Comments citalopram (Celexa 40 mg oral tablet) 40 mg Oral once a day citalopram (Celexa 20 mg oral tablet) 20 mg Oral once a day ibuprofen (Ibu 600 mg oral tablet) 600 mg Oral four times a day hydrOXYzine (Vistaril 25 mg oral capsule) 25 mg Oral four times a day as needed for Migraine headache ibuprofen (ibuprofen 600 mg oral tablet) 600 mg Oral every 6 hours as needed for Pain ferrous sulfate (ferrous sulfate) docusate (Colace) propranolol [...] to the patient and/or family, guardian/caregiver. Source: [facility] POWERCHART Document Id: [id number] Electronically signed by Maria R, [facility] Conflicts Analyst [id number] at 04/08/2017 3:59 PM CDT documented in this encounter Plan of Treatment Upcoming Encounters Date Type Specialty Care Team Description 08/17/2022 Procedure visit Neurology Marina Winter M.D., M.P.H. [address] [phone] (Wo rk) Scheduled Procedures Name Priority Associated Diagnoses Date/Time LIFT THIGH Excessive And Redundant Skin And Subcutaneous Tissue documented as of this encounter Visit Diagnoses Not on filedocumented in this encounter Additional Health Concerns Assessment Noted Time PHQ-9 Depression Total Score: 13 02/27/2011 2:40 PM CD T documented as of this encounter
--- OUTSIDE RECORDS SUMMARY | 2022-07-24 15:20 | XMS_ITS | Encounter Summary ---
:1985 Author Organization [facility] Address [address] [place] [address] Care Team Providers Name Role Phone Unavailable Primary Care Provider Unavailable Encounter Details Date Type Department Care Team Description 08/15/2010 Hospital Encounter HX NO MAPPING Luciano Francois M.D. [address] [place], [place] [phone] (Wo rk) Social History [...] How often do you attend protestant or samaritan Never 07/04/2019 services? 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 [address] [place] [phone] (Wo rk) Scheduled Procedures Name Priority Associated Diagnoses Date/Time LIFT THIGH Excessive And Redundant Skin And Subcutaneous Tissue documented as of this encounter Visit Diagnoses Not on filedocumented in this encounter
--- OUTSIDE RECORDS SUMMARY | 2022-07-24 15:20 | XMS_ITS | Encounter Summary ---
:1985 Author Organization [facility] Address [address] [place] [address] Care Team Providers Name Role Phone Unavailable Primary Care Provider Unavailable Encounter Details Date Type Department Care Team Description 12/06/2010 Hospital Encounter HX [facility] Steve Dupont M.D. [address] [place] [address] (Wo rk) Social History Tobacco Use Types [...] How often do you attend scientology or mormon Never 07/04/2019 services? 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 - 12/06/2010 12:00 AM CST [id number] IMPRESSION/REPORT/PLAN I have written her a letter for work asking no more than 5 hours at a time and she will follow up in 3 weeks. Blood sugars are actually looking pretty good. Got a few that are up around 140, but otherwise doing fine. CHIEF COMPLAINT/REASON FOR VISIT Nancy comes in today. We need to repeat a chlamydia culture here again today because of positive chlamydia early in . HISTORY OF PRESENT ILLNESS She is having lots of pressure. She says after she has been on her feet for 5 hours at any time she ends up back home basically in bed or on the couch secondary to pelvic pressure. PHYSICAL EXAM AREA EXAM TEXT ABDOMEN heart tones 170's. Vertex presentation. Fundal height 29. GENITALIA Cervix is long and closed. BDB/mgd Signed Aidan Diaz M.D. Obstetrics & Gynecology Electronically Signed By:AIDAN DIAZ MD On 12/07/2010 02:24 PM Source: [facility] MHSDOLBEYNONRADSYS Document Id: [id number] L ASSEMBLER documented in this encounter Miscellaneous Notes Telephone Encounter - Conversion, Historical Provider Ser - 12/09/2010 11:54 AM CST Phone Message Document Contains Addenda Addendum by KIT HATHAWAY MD on 09 December 2010 11:57:51 WHEEL ASSEMBLER From: KIT HATHAWAY MD To: JESSICA BULLARD; Sent: 12/09/2010 11:57:51 WHEEL ASSEMBLER Subject: RE: Phone Message The patients urine LCR on 12/06/10 is negative. From: JESSICA BULLARD To: KIT HATHAWAY; Sent: 12/09/2010 11:54:18 WHEEL ASSEMBLER Subject: Phone Message Caller is: ( x) Patient ( ) Mother ( ) Father ( ) Spouse ( ) Daughter ( ) Son ( ) Pharmacy ( ) Other: Physician:Primary BDB Patient MRN #: Reason for Call: Message: Nancy is calling back, wondering if her test results were in. If so she would like a callback to talk about them. She didn't specify which tests. Advice/Action: Source used: ( ) Verbalizes understanding [...] Other ( ) Call back telephone number ([phone] ) Call back cell phone number ( ) Source: [facility] [employer] Document Id: [id number] Bunny - Kit Hathaway M.D. - 12/09/2010 11:14 AM CST Return to Work Status Return to Work Status Entered On: 12/09/2010 11:17 WHEEL ASSEMBLER Performed On: 12/09/2010 11:14 WHEEL ASSEMBLER by KIT HATHAWAY MD Return to Work Status Date/Time of Injury: 12/09/2010 11:14 WHEEL ASSEMBLER Work Injury: No Work Status: Other: Work restrictions recommended for rest of . 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 She is having complicationsin her . She should not work more than 5 hours per day or 30 hours per week for the remainder of her . Follow Up Physician Name: KIT Lund MD - 12/09/2010 11:14 WHEEL ASSEMBLER Source: [facility] [employer] Document Id: [id number] WHEEL ASSEMBLER!12 L ASSEMBLER Bunny - Aidan Diaz M.D. - 12/06/2010 3:07 PM CST Ambulatory Patient Summary [address] [address] Visit Information Name: NANCY CAMPBELL Current Date: 12/06/2010 15:07:03 Primary Care Provider: AIDAN DIAZ MD [id number] Your Medications Here is a list of [...] Lipid Panel every 5 years Age 20-75 12/06/2010 Checks blood for good (HDL) and bad (LDL) cholesterol. Know your numbers, they are one indicator of your risk for heart attack and stroke. Vaccine: Tetanus every 10 years 01/17/2009 01/15/2019 Immunization to help prevent you from getting the serious disease Tetanus (Lockjaw). Your Upcoming Appointments Date Time Location Reason Provider No Appointments found Your Goals/Additional instructions: Source: [facility] POWERCHART Document Id: [id number] Electronically signed by Conversion, [facility] Health Data Analyst [id number] at 04/08/2017 11:45 AM CDT Bunny - Aidan Diaz M.D. - 12/06/2010 3:07 PM CST [place]ulatory [place] [address] Visit Information Name: NANCY CAMPBELL Current Date: 12/06/2010 15:07:02 Primary Care Provider: AIDAN DIAZ MD [id number] NANCY CAMPBELL has been given the following [...] to the patient and/or family, guardian/caregiver. Source: [facility] POWERCHART Document Id: [id number] Electronically signed by Conversion, [facility] Health Data Analyst [id number] at 04/08/2017 11:45 AM CDT Miscellaneous - Cecil Saleh, L.P.N. 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 Intake/History Entered On: 12/06/2010 14:55 WHEEL ASSEMBLER Performed On: 12/06/2010 14:54 WHEEL ASSEMBLER by CECIL SALEH LPN Intake Chief Complaint: OB visit LMP Date: 05/01/2010 Systolic Blood Pressure: 94mmHg Diastolic Blood Pressure: 52mmHg NIBP Mean: 66mmHg BP Location: Left upper extremity Actual Weight: 112.200kg(Converted to: 247lb 6oz) Dosing Weight Clinic: 112.20kg CECIL SALEH LPN - 12/06/2010 14:54 WHEEL ASSEMBLER Subjective Pain Symptoms: No CECIL SALEH LPN - 12/06/2010 14:54 WHEEL ASSEMBLER Dependent Habits Tobacco Use/Currently Using: No CECIL SALEH LPN - 12/06/2010 14:54 WHEEL ASSEMBLER Caffeine Use Grid Caffeine Use: Current Type: Soft drinks Frequency: Daily CECIL SALEH LPN - 12/06/2010 14:54 WHEEL ASSEMBLER Allergies Allergies (Active) NKA Estimated Onset Date: Unspecified ; Created By: CECIL SALEH LPN; Reaction Status: Active ; Category: Drug ; Substance: NKA ; Type: Allergy ; Updated By: CECIL SALEH LPN; Reviewed Date: 09/15/2010 10:22 WHEEL ASSEMBLER Source: [facility] Document Id: [id number] WHEEL ASSEMBLER!19 L ASSEMBLER documented in this encounter Plan of Treatment Upcoming Encounters Date Type Specialty Care Team Description 08/17/2022 Procedure visit Neurology Marina Winter M.D., M.P.H. [address] [phone] (Wo rk) Scheduled Procedures Name Priority Associated Diagnoses Date/Time LIFT THIGH Excessive And Redundant Skin And Subcutaneous Tissue documented as of this encounter Visit Diagnoses Not on filedocumented in this encounter
--- OUTSIDE RECORDS SUMMARY | 2022-07-24 15:20 | XMS_ITS | Encounter Summary ---
:1985 Author Organization [facility] Address [address] [place] [address] Care Team Providers Name Role Phone Unavailable Primary Care Provider Unavailable Encounter Details Date Type Department Care Team Description 08/09/2005 Hospital Encounter HX [facility] CVC-Pernell Ortega Jr., M.D. 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 [address] [place] [phone] (Wo rk) Scheduled Procedures Name Priority Associated Diagnoses Date/Time LIFT THIGH Excessive And Redundant Skin And Subcutaneous Tissue documented as of this encounter Visit Diagnoses Not on filedocumented in this encounter
--- OUTSIDE RECORDS SUMMARY | 2022-07-24 15:20 | XMS_ITS | Encounter Summary ---
:1985 Author Organization [facility] Address [address] [place] [address] Care Team Providers Name Role Phone Unavailable Primary Care Provider Unavailable Encounter Details Date Type Department Care Team Description 08/15/2010 Hospital Encounter HX NO MAPPING Luciano Francois M.D. [address] [place], [place] [phone] (Wo rk) Social History [...] How often do you attend sikh or christianity Never 07/04/2019 services? 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 [address] [place] [phone] (Wo rk) Scheduled Procedures Name Priority Associated Diagnoses Date/Time LIFT THIGH Excessive And Redundant Skin And Subcutaneous Tissue documented as of this encounter Visit Diagnoses Not on filedocumented in this encounter
--- OUTSIDE RECORDS SUMMARY | 2022-07-24 15:20 | XMS_ITS | Encounter Summary ---
:1985 Author Organization [facility] Address [address] [place] [address] Care Team Providers Name Role Phone Unavailable Primary Care Provider Unavailable Encounter Details Date Type Department Care Team Description 08/03/2010 Hospital Encounter HX [facility] Steve Dupont M.D. [address] [place] [address] (Wo rk) Social History Tobacco [...] often do you attend oriental orthodox or jain Never 07/04/2019 services? 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 - 08/03/2010 12:00 AM CDT [id number] IMPRESSION/REPORT/PLAN H&P is done here today. She obviously will follow up with a repeat at 39 weeks gestation. We will start following her blood sugars in early to mid 2nd trimester. She is on vitamins. We will see her back in 4 weeks. CHIEF COMPLAINT/REASON FOR VISIT Nancy comes in today for her first OB visit. HISTORY OF PRESENT ILLNESS Nancy is a 25-year-old white female 3, para 1 at approximately 9 weeks gestation. Her high risk factors include previous for failure to progress after pushing for 3 hours. She does have a history of genital herpes, rare outbreaks. She did suffer from gestational diabetes, which was diet controlled with her first . BDB/mgd Signed Aidan Diaz M.D. Obstetrics & Gynecology Electronically Signed By:AIDAN DIAZ MD On 08/04/2010 03:33 PM Source: [facility] [id number] Document Id: [id number] documented in this encounter Procedure Notes Conversion, Historical Provider Ser - 08/03/2010 9:31 AM CDT Urine Dipstick Urine Dipstick Entered On: 08/03/2010 9:32 CDT Performed On: 08/03/2010 9:31 CDT by YVETTE HEART LPN Urine Dipstick UA Color POC: Straw UA Appear POC: Clear UA Leuk POC: 1+ Small UA Nitrite POC: Negative UA Urobilinogen POC: 0.2 mg/dl UA Protein POC: Negative UA pH POC: 5 UA Blood POC: Trace Intact UA Spec Grav POC: >1.030 UA Ketones POC: Negative UA Bili POC: Negative UA Glucose POC: Negative YVETTE HEART LPN - 08/03/2010 9:31 CDT Source: [facility] POWERCHART Document Id: [id number] CDT!14 documented in this encounter Miscellaneous Notes Miscellaneous - Aidan Diaz M.D. - 08/03/2010 9:38 AM CDT [place] [address] Visit Information Name: NANCY CAMPBELL Current Date: 08/03/2010 09:38:35 Primary Care Provider: AIDAN DIAZ MD [id number] Your Medications Here is a list of your medications. It is important to take your medications as directed. Use a pillbox or chart to help remind you to take your medications. Please let your doctor or nurse know if you have problems taking your medications. Medication/Strength Dose Route Frequency Indications/Special Instructions/Comments ranitidine (Zantac) 150 mg multivitamin, ( Multivitamins) [...] Chlamydia every 1 year Females Age 15-24 08/03/2010 Screening Pap Smear every 3 years Women 21-65 08/03/2010 Checks for signs of cancer of the cervix. Lipid Panel every 5 years Age 20-75 08/03/2010 Checks blood for good (HDL) and bad (LDL) cholesterol. Know your numbers, they are one indicator of your risk for heart attack and stroke. Vaccine: Tetanus every 10 years 08/03/2010 Immunization to help prevent you from getting the seriousdisease Tetanus (Lockjaw). Your Upcoming Appointments Date Time Location Reason Provider No Appointments found Your Goals/Additional instructions: Source: [facility] POWERCHART Document Id: [id number] Electronically signed by Maria R [facility] Can Tender [id number] at 04/09/2017 1:22 AM CDT Miscellaneous - Aidan Diaz M.D. - 08/03/2010 9:38 AM CDT Ambulatory Depart Summary [address] [address] Visit Information Name: NANCY CAMPBELL Current Date: 08/03/2010 09:38:35 Primary Care Provider: AIDAN DIAZ MD [id number] NANCY CAMPBELL has been given the following list of medications: Your Medications It is important to take your medications as directed. Use a pill box or chart to help remind you to take your medications. Please let your doctor or nurse know if you have problems taking your medications. Medication/Strength Dose Route Frequency Indications/Special Instructions/Comments ranitidine (Zantac) 150 mg multivitamin, ( Multivitamins) once a day Additional Information: Yes - Current list of reconciled medications is provided and explained to the patient and/or family, guardian/caregiver. Source: [facility] POWERCHART Document Id: [id number] Electronically signed by Maria R [facility] Can Tender [id number] at 04/09/2017 1:22 AM CDT Miscellaneous - Cecil Saleh, L.P.N. 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 Intake/History Entered On: 08/03/2010 9:15 CDT Performed On: 08/03/2010 9:11 CDT by CECIL SALEH LPN Intake Chief Complaint: first OB visit LMP Date: 05/01/2010 Systolic Blood Pressure: 120mmHg Diastolic Blood Pressure: 68mmHg NIBP Mean: 85mmHg BP Location: Right upper extremity Actual Weight: 119.400kg(Converted to: 263lb 4oz) Dosing Weight Clinic: 119.40kg CECIL SALEH LPN - 08/03/2010 9:11 CDT Subjective Pain Symptoms: Yes CECIL SALEH LPN - 08/03/2010 9:11 CDT Pain Pain Assessment Grid Pain 1 Location: Abdomen Laterality: Bilateral Intensity: 6 CECIL SALEH LPN - 08/03/2010 9:11 CDT Dependent Habits Tobacco Use/Currently Using: No CECIL SALEH LPN - 08/03/2010 9:11 CDT Allergies Allergies (Active) NKA Estimated Onset Date: Unspecified ; Created By: CECIL SALEH LPN; Reaction Status: Active ; Category: Drug ; Substance: NKA ; Type: Allergy ; Updated By: CECIL SALEH LPN; Reviewed Date: 08/03/2010 9:10 CDT Source: [facility] POWERCHART Document Id: [id number] CDT!20 documented in this encounter Plan of Treatment Upcoming Encounters Date Type Specialty Care Team Description 08/17/2022 Procedure visit Neurology Marina Winter M.D., M.P.H. [address] [place] [address] [phone] (Wo rk) Scheduled Procedures Name Priority Associated Diagnoses Date/Time LIFT THIGH Excessive And Redundant Skin And Subcutaneous Tissue documented as of this encounter Procedures Procedure Name Priority Date/Time Associated Diagnosis Comme nts HXPHYS INTERP OF Routine 08/03/2010 10:38 AM Resu lts for this THIN PREP, PAP CDT procedure are in the results section. THINPREP SCREEN HPV Routine 08/03/2010 10:38 AM R esults for this REFLEX CDT procedure are i n the results section. ABO GROUPING, B Routine 08/03/2010 9:55 AM Result s for this CDT procedure are i n the results section. ANTIBODY SCREEN, B Routine 08/03/2010 9:55 AM Res ults for this CDT procedure are i n the results section. documented in this encounter Results HX Hx phys Interp of Thin Prep, Pap (08/03/2010 10:38 AM CDT) [facility] Method Time Signature Interpretation Performed POWERCHART Comment: Test Performed by: [facility] Dpt of Lab Med and Pathology [address] [place] [address] Net Front End Developer: Federico anne III, M.D. Specimen Anatomical Collection Method Collection Time Receive d Time (Source) Location / / Volume Laterality Cervix/Endocervi 08/03/2010 10:38 010 6:14 x AM CDT PM CDT Historical Provider LAB HISTORICAL ORDERS Performing Organization Address City/State/ZIP Code Phon e Number POWERCHART ThinPrep Screen HPV Reflex (08/03/2010 10:38 AM CDT) [facility] Signature Interpretation [id number] POWERCHART [facility] See Comment POWERCHART [facility] Comment: A. ??ThinPrep Pap Test Screen (Cervical/ Endocervical HPV Reflex): Satisfactory for evaluation. Partially obscuring bacteria. Partially obscuring inflammation. Negative for intraepithelial lesion or m alignancy. Reactive/Reparative squamous cells prese nt. Reactive glandular cells present. HXThPrep Scrn [facility] See Comment [facility] RCHART Comment: RESULT: Carolina JoelRodrigo Zapata, CT ( ASCP) HXThPrep Scrn [facility] See Comment [facility] RCHART Comment: RESULT: 08/09/2010 13:58 Interpreted by: Cinthia Crowley M.D. Report electronically signed by Cinthia townsend M.D. Transcribed by: [email or web address] ??08/09/2010 10:30: 49 HX Spec [facility] See Comment POWERCHART Comment: A. ??ThinPrep Pap Test Screen (Cervical/ Endocervical HPV Reflex): Received cloudy specimen in ThinPrep via l. Test Performed by: [facility] Dpt of Lab Med and Pathology [address] [place] [address] Net Front End Developer: Federico anne III, M.D. Specimen (Source) Anatomical Collection Method Collection Time Re ceived Time Location / / Volume Laterality Cervix/Endocervix 08/03/2010 10:38 AM CDT Aidan Diaz M.D. LAB PAP PATHDX ORDERABLES Performing Organization Address City/State/ZIP Code Phon e Number POWERCHART Antibody Screen (08/03/2010 9:55 AM CDT) athologist Signature Antibody Negative POWERCHART Screen Comment: -- REFERENCE VALUE -- Negative If positive, antibody identification will be performed. Specimen (Source) Anatomical Collection Method Collection Time Re ceived Time Location / / Volume Laterality 08/03/2010 9:55 AM CDT Aidan Diaz M.D. LAB BLOOD BANK TEST ORDERABL ES Performing Organization Address City/State/ZIP Code Phon e Number POWERCHART Grouping and -[place] FLIP, see #[id number] (08/03/2010 9:55 AM CDT) P athologist Signature HX Grouping and A POS POWERCHART Rh Specimen (Source) Anatomical Collection Method Collection Time Re ceived Time Location / / Volume Laterality 08/03/2010 9:55 AM CDT Aidan Diaz M.D. LAB BLOOD BANK TEST ORDERABL ES Performing Organization Address City/State/ZIP Code Phon e Number POWERCHART documented in this encounter Visit Diagnoses Not on filedocumented in this encounter
--- OUTSIDE RECORDS SUMMARY | 2022-07-24 15:20 | XMS_ITS | Encounter Summary ---
:1985 Author Organization [facility] Address [address] [place] [address] Care Team Providers Name Role Phone Unavailable Primary Care Provider Unavailable Encounter Details Date Type Department Care Team Description 04/28/2005 Hospital Encounter HX [facility]VC-Pernell Ortega Jr., M.D. [address] [place] [phone] (Wo rk) Social History Tobacco Use [...] How often do you attend advent or restorationist Never 07/04/2019 services? 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 [address] [place] [phone] (Wo rk) Scheduled Procedures Name Priority Associated Diagnoses Date/Time LIFT THIGH Excessive And Redundant Skin And Subcutaneous Tissue documented as of this encounter Visit Diagnoses Not on filedocumented in this encounter
--- OUTSIDE RECORDS SUMMARY | 2022-07-24 15:20 | XMS_ITS | Encounter Summary ---
:[address] [facility] Address [address] [place] [address] Care Team Providers Name Role Phone Unavailable Primary Care Provider Unavailable Encounter Details Date Type Department Care Team Description 02/27/2011 Hospital Encounter HX [facility] Kit Mims [...] How often do you attend episcopal or pentecostalism Never 07/04/2019 services? 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 - 02/27/2011 12:00 AM CDT [id number] CHIEF COMPLAINT/ REASON FOR VISIT 1. Postop visit. 2. depression 3. Migraine headache 4. Request contraception HISTORY OF PRESENT ILLNESS This patient is a 25-year-old G3, P2-0-1-2 female who underwent repeat section on 02/19/2011. She delivered a viable male infant with Apgars of 8 and 9 and weight of 5 pounds 11 ounces. The patient presents for postop incision check today. She complains of depression. She has a history of depression and was previously on Celexa which she stopped when she became . She requests to restart on Celexa. She reports feeling depressed and down. She reports trouble falling asleep and being tired with no energy. She feels better about herself and reports she feels like she would be better off . She denies any active suicidal ideations. She has no thoughts of hurting her infant. She reports good pain control. She is tolerating diet well. Positive flatus but no bowel movement. No difficulty urinating. She reports minimal lochia. She denies any fevers or chills. No shortness of breath or chest pain. The patient also complains of migraine headaches since she delivered. She has had a history of migraine headaches in the past and she can't remember the name of the medication she was on. She has tried Vicodin and ibuprofen with minimal improvement in her migraine headaches. Her last migraine headache was this morning. Patient also requests to start on Depo Provera for contraception. She has previously been on Depo Provera without difficulties. The patient had a genital herpes outbreak in the hospital after her section. Her vesicles and symptoms have resolved and she was treated with Valtrex for 3 days while in the hospital. No further symptoms. ALLERGIES No known drug allergies. CURRENT MEDICATIONS 1. Vicodin p.r.n. 2. Ibuprofen p.r.n. 3. Propranolol 10 milligrams by mouth p.r.n. 4. Colace p.r.n. 5. Iron p.r.n. 6. Zantac daily 7. vitamins daily 8. Celexa, new prescription given today. 9. Depo Provera, new prescription given today. PAST MEDICAL/SURGICAL HISTORY 1. Obesity 2. Genital herpes last outbreak on 02/19/2011 3. Gestational diabetes 4. Depression. Past Surgical History 1. section 02/19/2011 2. section 07/02/2005 3. Cholecystectomy 2005 4. Laparoscopy 1999 5. Laparotomy for peritoneal adhesions 2008 6. Tonsillectomy 1994 7. Jaw surgery, unknown date. Past Obstetrical History 1. Miscarriage 2006 2. section 02/19/2011 at 37 weeks, male infant 5 pounds 11 ounces 3. section 07/02/2005 4. section 40 weeks, gestational diabetes, female 7 pounds 4 ounces. ADULT PREVENTATIVE SERVICES Tobacco use none Pap smear is 08/03/2010 Chlamydia is 02/07/2011 Depression: PHQ-9 score of 13 on 02/27/2011. Tetanus 01/17/2009. Asthma denied SOCIAL HISTORY Patient denies tobacco, alcohol or drug use. She denies history of PID. She does have a history of herpes with last outbreak on 02/19/2011. VITAL SIGNS Weight was 106.8 kg, temperature 36.8, blood pressure 124/82. PHYSICAL EXAM GENERAL: Well-developed, well-nourished female in no apparent distress. Alert and oriented x3. Patient has appropriate affect. The patient appears depressed when answering questions. LUNGS: Clear to auscultation bilaterally with good inspiratory effort. HEART: Regular rate and rhythm without murmur. ABDOMEN: Soft, obese, nontender and nondistended. Positive bowel sounds. Fundus firm, nontender at umbilicus -3. Incision clean, dry, intact without erythema. Steri-Strips are in place. No signs of infection. SPINE: No CVA tenderness bilaterally. GENITALIA: Deferred. EXTREMITIES: No clubbing, cyanosis or edema. Nontender bilaterally. IMPRESSION/REPORT/PLAN 1. Normal postop visit status post repeat section 02/19/2011 2. depression, recurrent major depression 3. Bottle feeding. 4. Migraine headaches 5. Gestational diabetes 6. History of genital herpes outbreak on 02/19/2011 now resolved after Valtrex prescription Plan 1. I discussed depression with the patient. The patient requests to restart her Celexa. I reviewed the risks, benefits, alternatives and indication of Celexa with the patient. The patient desires to start. I gave the patient a prescription for Celexa 20 milligrams p.o. daily #30 pills with no refills. 2. I would like the patient to follow up with her primary provider, Dr. Diaz for depression followup in the next 7-10 days and possible adjustment of Celexa medication 3. I gave the patient contact information for a therapist for counseling. Patient will make her own appointment. 4. Depression precautions reviewed with the patient. Emergency room phone number and contact information is given to the patient 5. I discussed contraception options available to the patient. Patient requests Depo Provera. I reviewed the risks, benefits, alternatives and indication of Depo Provera with the patient. I reviewed the risk of irregular bleeding. I reviewed the risk of amenorrhea. I reviewed the risk of decreased bone mineralization with Depo Provera use. Patient desires to proceed. I gave the patient an injection of Depo Provera 150 milligrams intramuscularly x1 now. She will follow up every 12 weeks for 1 year refills. 6. I would like the patient to follow up with Dr. Diaz for visit and depression check 7. I would like the patient to follow up with her primary provider at [facility] for evaluation and management of her migraine headaches. JTS/mgd Signed Kit Hathaway M.D. Obstetrics & Gynecology Electronically Signed By: KIT HATHAWAY MD On: 03/02/2011 08:59 Source: [facility] MHSDOLBEYNONRADSYS Document Id: [id number] documented in this encounter Procedure Notes Maria R, Josh Provider Ser - 02/27/2011 2:53 PM CDT Depo-Provera Administration Depo-Provera Administration Entered On: 02/27/2011 14:54 CDT Performed On: 02/27/2011 14:53 CDT by JESSICA BULLARD Depo-Provera Administration Systolic Blood Pressure: 124mmHg Diastolic Blood Pressure: 82mmHg BP Reading Side: Left upper extremity Dosing Weight: 106.800kg Pap within last 12 months: Yes Last Depo-Provera Given: 02/27/2011 CDT Return appointment: 05/21/2011 CDT Needs test: No JESSICA BULLARD - 02/27/2011 14:53 CDT Source: [facility] POWERCHART Document Id: [id number] CDT!10 documented in this encounter Nursing Notes Kit Hathaway M.D. - 02/27/2011 2:29 PM CDT Recurring Orders Recurring Orders Entered On: 02/27/2011 14:30 CDT Performed On: 02/27/2011 14:29 CDT by KIT HATHAWAY MD Recurring Orders Depo-Provera Dose: 150 mg Depo-Provera Route: IM Depo-Provera Frequency: Every 12 weeks Depo-Provera Duration: 1 year Depo-Provera Comment: , s/p delivery on 02/19/2011 IKT HATHAWAY MD - 02/27/2011 14:29 CDT Source: [facility] [employer] Document Id: [id number] CDT!7 documented in this encounter Miscellaneous Notes Miscellaneous - Laura Duncan L.P.N. - 02/27/2011 3:15 PM CDT Reminder Msg PHQ-9 Document Contains Addenda Addendum by CECIL SAELH LPN on 24 August 2011 11:54:59 CDT done Addendum by CECIL SALEH LPN on 07 August 2011 08:24:22 CDT pt will do when she comes in for her depo shot From: LAURA DUNCAN LPN To: JESSICA BULLARD; Sent: 02/27/2011 15:15:39 CDT Show up: 07/30/2011 15:15:00 CDT Subject: Reminder Msg PHQ-9 Due Date/Time: 08/29/2011 15:15:00 CDT Please Remember to: Call patient and have her schedule 6 month follow up of depression. 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 Professor Of Criminal Justice [id number] at 04/08/2017 11:24 AM CDT Miscellaneous - Kit Hathaway M.D. - 02/27/2011 2:42 PM CD[place] [address] Visit Information Name: NANCY CAMPBELL Current Date: 02/27/2011 14:42:06 Primary Care Provider: AIDAN DIAZ MD Your Medications Here is a list of your medications. It is important to take your medications as directed. Use a pillbox or chart to help remind you to take your medications. Please let your doctor or nurse know if you have problems taking your medications. Medication/Strength Dose Route Frequency Indications/Special Instructions/Comments ibuprofen (ibuprofen 600 mg oral tablet) 600 mg Oral every 6 hours as needed for Pain hydrocodone-acetaminophen (Vicodin 5 mg-500 mg oral tablet) 1 tab(s) Oral every 6 hours as needed for Pain No more than 4,000mg acetaminophen/24hrs citalopram (Celexa 20 mg oral tablet) 20 [...] Lipid Panel every 5 years Age 20-75 02/27/2011 Checks blood for good (HDL) and bad [...] Source: [facility] POWERCHART Document Id: [id number] Electronically signed by Maria R [facility] Professor Of Criminal Justice [id number] at 04/08/2017 11:24 AM CDT Miscellchina - Kit Hathaway M.D. - 02/27/2011 2:42 PM CDT [place] [address] Visit Information Name: NANCY CAMPBELL Current Date: 02/27/2011 14:42:05 Primary Care Provider: AIDAN DIAZ MD NANCY CAMPBELL has been given the following list of medications: Your Medications It is important to take your medications as directed. Use a pill box or chart to help remind you to take your medications. Please let your doctor or nurse know if you have problems taking your medications. Medication/Strength Dose Route Frequency Indications/Special Instructions/Comments ibuprofen (ibuprofen 600 mg oral tablet) 600 mg Oral every 6 hours as needed for Pain hydrocodone-acetaminophen (Vicodin 5 mg-500 mg oral tablet) 1 tab(s) Oral every 6 hours as needed for Pain No more than 4,000mg acetaminophen/24hrs citalopram (Celexa 20 mg oral tablet) 20 [...] to the patient and/or family, guardian/caregiver. Source: [facility] POWERCHART Document Id: [id number] Electronically signed by Maria R [facility] Professor Of Criminal Justice [id number] at 04/08/2017 11:24 AM CDT Miscellaneous - Kit Hathaway M.D. - 02/27/2011 2:40 PM CDT PHQ-9 PHQ-9 Entered On: 02/27/2011 14:40 CDT Performed On: 02/27/2011 14:40 CDT by KIT HATHAWAY MD PHQ-9 Little interest or pleasure in doing things: More than half the days Feeling down, depressed, or hopeless: More than half the days Trouble falling or staying asleep, or sleeping too much: More than half the days Feeling tired or having little energy: More than half the days Poor appetite or overeating: Not at all Feeling bad about yourself or that you are a failure: More than half the days Trouble concentrating on things: More than half the days Moving or speaking slowly; restless or fidgety: Not at all Thoughts that you would be better off /hurting self: Several days PHQ-9 Calculated Score: 13 Problems make work, home, or dealing with others: Not difficult at all KIT HATHAWAY MD - 02/27/2011 14:40 CDT Source: [employer] Document Id: [id number] CDT!13 Miscellaneous - Cecil Saleh L.PRodrigoNRodrigo - 02/27/2011 2:14 PM CDT 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 Intake/History 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 Intake/History Entered On: 02/27/2011 14:15 CDT Performed On: 02/27/2011 14:14 CDT by CECIL SALEH LPN Intake Chief Complaint: post-op 02-18-2011 Temperature Core: 36.8C(Converted to: 98.2DegF) Systolic Blood Pressure: 124mmHg Diastolic Blood Pressure: 82mmHg NIBP Mean: 96mmHg BP Location: Left upper extremity Actual Weight: 106.800kg(Converted to: 235lb 7oz) Dosing Weight Clinic: 106.80kg CECIL SALEH LPN - 02/27/2011 14:14 CDT Subjective Pain Symptoms: No CECIL SALEH LPN - 02/27/2011 14:14 CDT Dependent Habits Tobacco Use/Currently Using: No CECIL SALEH LPN - 02/27/2011 14:14 CDT Tobacco Use Grid Other Tobacco Frequency: non CECIL SALEH LPN - 02/27/2011 14:14 CDT Caffeine Use Grid Caffeine Use: Current Type: Soft drinks Frequency: Daily CECIL SALEH LPN - 02/27/2011 14:14 CDT Allergies Allergies (Active) NKA Estimated Onset Date: Unspecified ; Created By: CECIL SALEH LPN; Reaction Status: Active ; Category: Drug ; Substance: NKA ; Type: Allergy ; Updated By: CECIL SALEH LPN; Reviewed Date: 02/27/2011 14:11 CDT Source: [employer] Document Id: [id number] CDT!22 documented in this encounter Plan of Treatment Upcoming Encounters Date Type Specialty Care Team Description 08/17/2022 Procedure visit Neurology Marina Winter M.D., M.P.H. [address] [phone] (Wo rk) Scheduled Procedures Name Priority Associated Diagnoses Date/Time LIFT THIGH Excessive And Redundant Skin And Subcutaneous Tissue documented as of this encounter Visit Diagnoses Not on filedocumented in this encounter Additional Health Concerns Assessment Noted Time PHQ-9 Depression Total Score: 13 02/27/2011 2:40 PM CD T documented as of this encounter
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
--- OUTSIDE RECORDS SUMMARY | 2022-07-24 15:20 | XMS_ITS | Encounter Summary ---
:1985 Author Organization [facility] Address [address] [place] [address] Care Team Providers Name Role Phone Unavailable Primary Care Provider Unavailable Encounter Details Date Type Department Care Team Description 07/27/2003 Hospital Encounter HX [facility] Jose Ortega Jr., M.D. [address] [place], [place] [phone] (Wo rk) Social History [...] How often do you attend christianity or mu-ism Never 07/04/2019 services? 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 [address] [phone] (Wo rk) Scheduled Procedures Name Priority Associated Diagnoses Date/Time LIFT THIGH Excessive And Redundant Skin And Subcutaneous Tissue documented as of this encounter Visit Diagnoses Not on filedocumented in this encounter
[2022-07-24 16:07] LABS: Clue Cells <20% Clue Cells Seen (None Seen); Trichomonas No Trichomonas Seen (None Seen); Yeast No Yeast Seen (None Seen)
== END 2022-07-24 15:07 | disposition home or self-care (01) ==
LOC: FBOREF 15:07
PROVIDERS: PCP Family Medicine; Visit Provider Family Medicine
DX: Z86.19 Personal history of other infectious and parasitic diseases (principal)
CPT/HCPCS: 87210

== ENCOUNTER 2022-07-25 08:12 | Emergency (ER) | payer MEDICAID, SELFPAY ==
[2022-07-25 08:14] VITALS: O2SAT 97
[2022-07-25 08:19] VITALS: BP 112/82; PULSE 82; RESP 18; TEMP 36.2; O2SAT 98; BMI 29.2
[2022-07-25 08:20] VITALS: BP 112/82
--- NOTE | 2022-07-25 08:24 | ED.GENADULT ---
HPI - General Adult General Time Seen by Provider: 08:24 Date Seen: 07/25/22 Chief complaint: Back Injury/Pain Stated complaint: back pain/chest tightness Time Seen by Provider: 07/25/22 08:23 Source: patient and RN notes reviewed Mode of arrival: ambulatory Limitations: no limitations History of Present Illness HPI narrative: Patient is a 37-year-old female coming in with chest symptoms and back pain that became concerning to her. She started having some left shoulder pain through the weekend which is not new for her. She states she dislocated her shoulder in labor years ago. She does have chronic shoulder issues and states she has some chronic back issues. She started having pain going up and down the left side of her back. Her chest started feeling tight and there was pain with deep breathing. The pain also started to wrap around to the right side which is atypical for her. She has not had any cough or cold symptoms, no fevers or chills, not short of breath no chest pain per se or palpitations. Pain is pleuritic in nature and is more left-sided but did start to radiate around to the right. No abdominal symptoms. She states she had went to an urgent care and had labs drawn in some of the kidney and liver functions were low. She saw Dr. Junior after her urgent care visit in he reportedly per patient told her not to worry about low labs. I reviewed with her if it is low levels of creatinine or liver functions, I certainly would not necessarily worry about that either. If it is electrolytes, that is a different story. My presumption is that if Dr. Junior told her not to worry about it, that there are no issues with the labs. I will see if I can review them as well. She is status post gastric bypass and thus avoids NSAIDs. We did review using IV Toradol here and she agrees to it. She has not tried anything for the pain. She has never been a smoker. As far as family history, she states her biological father has cardiac stents. She herself has never had any thromboembolic disease, not aware of any family history of this nor any family history of dissection or aneurysms. Related Data Home Medications Medication Instructions Recorded Confirmed bupropion HCl 300 mg 24 hr tablet, 300 mg PO QDAY 05/05/22 07/24/22 extended release topiramate 100 mg tablet 100 mg PO QDAY 05/05/22 07/24/22 zolpidem 10 mg tablet 10 mg PO .HS PRN 05/05/22 07/24/22 multivitamin (Daily Multi-Vitamin 1 tab PO QAM 06/05/22 07/24/22 tablet) celecoxib 200 mg capsule (Celebrex) 200 mg PO QDAY 07/24/22 medical marijuana PO 07/24/22 Previous Rx's Medication Instructions Recorded lorazepam 1 mg tablet 0.5 - 1 mg PO BID PRN anxiety #30 05/22/22 tabs valacyclovir 1 gram tablet 1,000 mg PO QDAY #30 tabs 05/22/22 citalopram 40 mg tablet 40 mg PO QDAY #90 tabs 07/11/22 bupropion HCl 150 mg 24 hr tablet, 150 mg PO QAM #90 tabs 07/24/22 extended release (Wellbutrin XL) dextroamphetamine-amphetamine ER 20 mg PO QAM #30 caps 07/24/22 20 mg 24hr capsule,extend release (Adderall XR) tramadol 50 mg tablet 50 mg PO Q6H PRN pain #10 tabs 07/25/22 Allergies Allergy/AdvReac Type Severity Reaction Status Date / Time No Known Drug Allergies Allergy Verified 07/24/22 14:18 Review of Systems Status of ROS: Reports: 10 or more systems reviewed and unremarkable except as noted in History and below PFSH [facility] Medical History BENITA (generalized anxiety disorder) Genital herpes Major depression, recurrent Narcolepsy PTSD (post-traumatic stress disorder) Surgical History History of abdominal hysterectomy History of bariatric surgery Hx of gastric bypass Family History Mother Depression Brother Depression Father Heart disease Family/Other Diabetes Social History Narrative: , 4 kids, non-smoker, social 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 [facility]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 Smoking Status: Never smoker Do you use any of these nicotine containing products: Vaping Products Second hand tobacco smoke exposure: Yes Little interest or pleasure in doing things: nearly every day Feeling down, depressed, or hopeless: nearly every day Exam Const: Vital Signs, click to edit/add: Vital Signs - 24 hr 07/25/22 08:19 07/25/22 08:20 07/25/22 08:14 Temperature 97.2 F L Pulse Rate [Right Pulse Oximeter] 82 Respiratory Rate 18 Blood Pressure [Ri ght Upper Arm] 112/82 112/82 Pulse Oximetry 98 97 Oxygen Delivery Me thod Room Air Documenting provider has reviewed patient's vital signs: yes Common normals: no apparent distress, average body habitus, oriented x3, no limitations, healthy appearing and alert General appearance: cooperative, comfortable, well kempt and anxious (Very mildly anxious about her symptoms) HENMT: Common normals: normocephalic, head/scalp atraumatic, hearing grossly normal bilaterally, external ears normal and EAC's normal Head and scalp: normocephalic and atraumatic External ear: external ears normal External auditory canal: EAC's normal Eye: Common normals: PERRL, EOMs intact bilaterally, conjunctivae normal and no scleral icterus Conjunctiva: conjunctiva(e) normal Pupil: PERRL Neck & C-Spine: Common normals: full ROM, no lymphadenopathy, supple, no meningeal signs, no JVD and thyroid normal Thyroid: thyroid normal Chest: Common normals: inspection of chest normal and palpation of chest normal (Minus some minimal left paraspinous tenderness really throughout thoracic ) Resp: Common normals: normal respiratory effort, no retractions, no use of accessory muscles and clear to auscultation bilaterally Auscultation: clear to auscultation bilaterally Cardio: Common normals: no JVD GI: Common normals: Normal to inspection, nondistended, normoactive bowel sounds present, soft to palpation, non-tender, no hepatosplenomegaly, no masses and no bruits Palpation: soft and no hepatosplenomegaly : Common normals: no CVA tenderness Bladder/kidney exam: no CVA tenderness Back & Pelvis: Common normals: no CVA tenderness, thoracic and lumbar spine normal to inspection and straight leg raise negative bilaterally Other: Does complain of some central spine pain along the junction of the termination of the thoracic and started the lumbar spine. Extremity: Common normals: normal to inspection, full ROM, normal capillary refill, no joint enlargement, no clubbing, cyanosis or edema, no calf tenderness and no pedal edema Other: On range of motion of her left shoulder, I did feel a palpable clunk/clinic. It would seem that she has subluxation of her shoulder on my range of motion of her shoulder. Did review with her at this time that I would recommend orthopedic follow-up. Neuro: Common normals: oriented x3, moves all extremities, no focal motor deficits, no sensory deficits noted and gait normal Sensorium/orientation: alert Meningeal signs: no meningeal signs Speech: speech normal Psych: Appearance: well kempt Course Course Hospital Course: We will establish an IV, try 15 mg IV Toradol for some pain relief. She does have a pleuritic component to her symptoms and thus pleurisy is certainly in the differential. Toradol will also certainly help musculoskeletal issues which are certainly high on my differential. We will look at cardio thoracic entities, consider pulmonary emboli IIA, dissection/aneurysm, acute coronary disease this differential as well. She understands at minimum she may be getting chest x-ray imaging versus CT imaging depending on some of the pending labs likely troponin and D-dimer. I did review the outside labs she was talking about and she had a low total red blood cell count but her hemoglobin was well within the normal range, no other indices were abnormal on the CBC. Her alkaline phosphatase likewise came back low without any other abnormalities on her labs. I will reassure her that these are nothing to be concerned about. Reevaluation(s) Reevaluation #1: Patient did not really feel the Toradol helped much, just made her a bit sleepy. The left-sided chest pain that was pleuritic in the pain in her back really started probably about 5:[address] into work. She is sure symptoms had been present for 3 hours before we had seen her. I did review with her that her labs are all looking normal, no concerning changes with D-dimer or troponin. I will get a follow-up EKG and troponin just to ensure no changing. We will proceed with a chest x-ray. At this time, this pain would seem that it is not from anything life-threatening and could be pleuritic or musculoskeletal, that is pending normal followup troponin and EKG as well as chest x-ray. Time: 10:06 Reevaluation #2: Reviewed with patient that all of her labs, chest x-ray, both EKGs and both troponins are well within normal limits. Her shoulder definitely seems like it sublux seen with the clunking that I can feel on range of motion. She states it is causing her bit of pain at this time. Unfortunately due to her gastric bypass oral NSAIDs are not an option. The pleuritic chest pain certainly could be coming from up pleurisy process. Am doubtful that that is referred pain from her shoulder. We can try a short course of prednisone and a lower dose so as to not try to irritate her stomach. I will write her a few pain pills with tramadol. We went over the risks benefits and side effects. We have discussed that any narcotic medicine can be addicting at any point. I did look her up on [place] prescribing website and she has had no narcotic medicines. She does get chronic medications that are prescribed through Dr. Junior. Time: 11:09 Vital Signs Vital signs: Initial Vital Signs Pulse Oximetry 97 07/25/22 08:14 Vital Signs Pulse Oximetry 97 07/25/22 08:14 Temperature 97.2 F L 07/25/22 08:19 Pulse Rate 82 07/25/22 08:19 Respiratory Rate 18 07/25/22 08:19 Blood Pressure 112/82 07/25/22 08:20 Pulse Oximetry 98 07/25/22 08:19 Oxygen Delivery Method 07/25/22 08:19 Medical Decision Making Lab Data Lab results reviewed: Yes I reviewed the patient's lab results Labs: Lab Results 07/25/22 07/25/22 07/25/22 Range/Units 08:50 08:50 08:50 WBC 3.81 L (4.50-11.00) K/uL RBC 4.15 (4.00-5.20) m/uL Hgb 13.4 (12.0-16.0) gm/dL Hct 39.2 (33.0-51.0) % MCV 95 (80-100) fL MCH 32 (26-34) pg MCHC 34 (32-36) gm/dL RDW Coeff of Domi 11.9 (11.5-15.5) % Plt Count 190 (140-440) K/uL Neut % (Auto) 60.1 (42.0-72.0) % Lymph % (Auto) 29.1 (20-44) % Morrill % (Auto) 8.4 (0.0-11.0) % Eos % (Auto) 0.8 (0.0-7.0) % Baso % (Auto) 1.3 (0.0-3.0) % Neut # (Auto) 2.30 (1.7-7.0) K/uL Lymph # (Auto) 1.10 (0.90-2.90) K/uL Morrill # (Auto) 0.30 (0.00-0.90) K/UL Eos # (Auto) 0.00 (0.00-0.50) K/uL Baso # (Auto) 0.00 (0.00-0.30) K/uL Abs Immat Gran (auto) 0.01 (0.00-0.30) K/uL D-Dimer Quant (PE/DVT) < 0.27 (0.00-0.50) ug/ml Sodium 135 (135-149) mmol/L Potassium 4.1 (3.6-5.1) mmol/L Chloride 106 (96-114) mmol/L Carbon Dioxide 24 (20-32) mmol/L BUN 13 (5-24) mg/dL Creatinine 0.4 L (0.5-1.5) mg/dL Estimated Creat Clear 167.90 Estimated GFR 131 ml/min Glucose 96 (60-115) mg/dL Lactate (0.5-1.9) mmol/L Calcium 8.6 (8.4-10.6) mg/dL Total Bilirubin 0.5 (0.1-1.5) mg/dL AST 22 (12-35) U/L ALT 15 (4-35) U/L Alkaline Phosphatase 32 L (40-150) U/L C-Reactive Protein < 0.5 L (0.5-1.0) mg/dL NT-Pro-B Natriuret Pep (0-125) PG/mL Total Protein 6.3 (6.0-8.3) g/dL Albumin 3.9 (3.3-5.0) g/dL POC Troponin I (0.01-0.04) ng/ml 07/25/22 07/25/22 07/25/22 Range/Units 08:50 08:50 09:05 WBC (4.50-11.00) K/uL RBC (4.00-5.20) m/uL Hgb (12.0-16.0) gm/dL Hct (33.0-51.0) % MCV (80-100) fL MCH (26-34) pg MCHC (32-36) gm/dL RDW Coeff of Domi (11.5-15.5) % Plt Count (140-440) K/uL Neut % (Auto) (42.0-72.0) % Lymph % (Auto) (20-44) % Morrill % (Auto) (0.0-11.0) % Eos % (Auto) (0.0-7.0) % Baso % (Auto) (0.0-3.0) % Neut # (Auto) (1.7-7.0) K/uL Lymph # (Auto) (0.90-2.90) K/uL Morrill # (Auto) (0.00-0.90) K/UL Eos # (Auto) (0.00-0.50) K/uL Baso # (Auto) (0.00-0.30) K/uL Abs Immat Gran (auto) (0.00-0.30) K/uL D-Dimer Quant (PE/DVT) (0.00-0.50) ug/ml Sodium (135-149) mmol/L Potassium (3.6-5.1) mmol/L Chloride (96-114) mmol/L Carbon Dioxide (20-32) mmol/L BUN (5-24) mg/dL Creatinine (0.5-1.5) mg/dL Estimated Creat Clear Estimated GFR ml/min Glucose (60-115) mg/dL Lactate 0.6 (0.5-1.9) mmol/L Calcium (8.4-10.6) mg/dL Total Bilirubin (0.1-1.5) mg/dL AST (12-35) U/L ALT (4-35) U/L Alkaline Phosphatase (40-150) U/L C-Reactive Protein (0.5-1.0) mg/dL NT-Pro-B Natriuret Pep 49 (0-125) PG/mL Total Protein (6.0-8.3) g/dL Albumin (3.3-5.0) g/dL POC Troponin I 0.00 L (0.01-0.04) ng/ml 07/25/22 Range/Units 10:14 WBC (4.50-11.00) K/uL RBC (4.00-5.20) m/uL Hgb (12.0-16.0) gm/dL Hct (33.0-51.0) % MCV (80-100) fL MCH (26-34) pg MCHC (32-36) gm/dL RDW Coeff of Domi (11.5-15.5) % Plt Count (140-440) K/uL Neut % (Auto) (42.0-72.0) % Lymph % (Auto) (20-44) % Morrill % (Auto) (0.0-11.0) % Eos % (Auto) (0.0-7.0) % Baso % (Auto) (0.0-3.0) % Neut # (Auto) (1.7-7.0) K/uL Lymph # (Auto) (0.90-2.90) K/uL Morrill # (Auto) (0.00-0.90) K/UL Eos # (Auto) (0.00-0.50) K/uL Baso # (Auto) (0.00-0.30) K/uL Abs Immat Gran (auto) (0.00-0.30) K/uL D-Dimer Quant (PE/DVT) (0.00-0.50) ug/ml Sodium (135-149) mmol/L Potassium (3.6-5.1) mmol/L Chloride (96-114) mmol/L Carbon Dioxide (20-32) mmol/L BUN (5-24) mg/dL Creatinine (0.5-1.5) mg/dL Estimated Creat Clear Estimated GFR ml/min Glucose (60-115) mg/dL Lactate (0.5-1.9) mmol/L Calcium (8.4-10.6) mg/dL Total Bilirubin (0.1-1.5) mg/dL AST (12-35) U/L ALT (4-35) U/L Alkaline Phosphatase (40-150) U/L C-Reactive Protein (0.5-1.0) mg/dL NT-Pro-B Natriuret Pep (0-125) PG/mL Total Protein (6.0-8.3) g/dL Albumin (3.3-5.0) g/dL POC Troponin I 0.00 L (0.01-0.04) ng/ml Imaging Data Chest x-ray: Attestation: I have reviewed the pertinent imaging results. My impression: My preliminary review of patient's chest x-ray is without any acute cardiopulmonary abnormality, await Radiology over-read. Radiologist's impression: Patient: NANCY KOTHARI Facility:?[facility] Patient ID:?[id number] Site Patient ID:?[id number]. Site :?1985 Study:?XRay Chest PA & LAT-07/25/2022 10:34:07 AM Ordering Physician:?Prabhakar Alvarez Final Report: INDICATION: LEFT SIDED PLEURITIC CHEST PAIN TECHNIQUE: Chest 2 views COMPARISON: None FINDINGS: Cardiovascular and mediastinum: Heart size and vasculature are normal in caliber and appearance. Lungs and pleural spaces: Lungs are clear. No sign of infiltrate or mass. No sign of pleural effusion. No pneumothorax. Bones and soft tissues: No significant findings. IMPRESSION: No acute findings. Dictated by Dilshad Haynes MD @ 07/25/2022 10:43:01 AM ECG Data Attestation: I personally reviewed and interpreted this ECG as follows: (Normal sinus rhythm, 82 beats per minute, QT corrected 448 milliseconds. No acute ischemia noted.) Prior ECG tracings: not available for review Interpretation: EKG 2. At 10:15 a.m. showing sinus rhythm, 87 beats per minute. No acute ischemia noted. QT corrected at 459 milliseconds, no significant change. Critical Care Time Critical Care Time Critical Care Time: No Discharge Plan Discharge Clinical Impression: Pleuritic chest pain, Chronic left shoulder pain Patient Disposition: Home, Self-Care Condition: Stable Instructions: Chest Pain (ED), Pleurisy (ED), Shoulder Pain (ED) Additional Instructions: Please follow-up with Dr. Junior is soon as you can. I will write a note for you to be off work today and tomorrow. If you can, please get an appointment with him tomorrow. Try prednisone 20 mg daily with food to see if it helps alleviate any of the pain with breathing or any of the musculoskeletal pain that i thinks you might be having. With your shoulder clunking on range of motion when I examined it, I suspect subluxation. I highly encourage you to follow up with Orthopedics, can talk to Dr. Junior and get the referral for this. I have written for a few pain pills, cannot drive all your on these or operate machinery. It is possible that the pain with breathing could be pleurisy developing. If you do have pleurisy, this can take 1-2 weeks to resolve. I would recommend baseline Tylenol 1000 mg 3 times a day for pain control. Activity Level: Activity as Tolerated Discharge Diet: Regular Prescriptions: New tramadol 50 mg tablet 50 mg PO Q6H PRN (Reason: pain) Qty: 10 0RF No Action celecoxib [Celebrex] 200 mg capsule 200 mg PO QDAY medical marijuana PO bupropion HCl [Wellbutrin XL] 150 mg tablet extended release 24 hr 150 mg PO QAM Qty: 90 1RF Rx Instructions: Total daily dose 450 mg dextroamphetamine-amphetamine [Adderall XR] 20 mg capsule,extended release 24hr 20 mg PO QAM Qty: 30 0RF multivitamin [Daily Multi-Vitamin] Tablet 1 tab PO QAM bupropion HCl 300 mg tablet extended release 24 hr 300 mg PO QDAY topiramate 100 mg tablet 100 mg PO QDAY zolpidem 10 mg tablet 10 mg PO .HS PRN lorazepam 1 mg tablet 0.5 - 1 mg PO BID PRN (Reason: anxiety) Qty: 30 0RF valacyclovir 1 gram tablet 1,000 mg PO QDAY Qty: 30 5RF citalopram 40 mg tablet 40 mg PO QDAY Qty: 90 1RF Follow Up/Referrals: Dilshad Junior MD [Primary Care Provider] - Stand Alone [facility] Inst[facility]
[2022-07-25] MEDS: KETOROLAC 15 MG/ML inj IVP (08:52)
[2022-07-25 09:06] LABS: Lactate* 0.6 mmol/L (0.5-1.9)
--- OUTSIDE RECORDS SUMMARY | 2022-07-25 09:09 | XMS_ITS | Encounter Summary ---
:1985 Author Organization [facility] Address [address] [place] [address] Care Team Providers Name Role Phone Annemarie Montiel M.D. 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 Maria Alejandra verbalized understanding. PLAN Disposition/Recommendation: patient will fax documentation Information/Education: patient/caller able to teach back Caller agreeable to plan of care: yes The following references were used: other PreD documented in this encounter Plan of Treatment Upcoming Encounters Date Type Specialty Care Team Description 08/17/2022 Procedure visit Neurology Marina Winter M.D., M.P.H. [address], [place] [phone] (Wo rk) Scheduled Procedures Name Priority Associated Diagnoses Date/Time LIFT THIGH Excessive And Redundant Skin And Subcutaneous Tissue documented as of this encounter Visit Diagnoses Not on filedocumented in this encounter Additional Health Concerns Assessment Noted Time PHQ-9 Depression Total Score: 12 06/10/2020 1:20 PM CD T documented as of this encounter Care Teams Beef Grader Relationship Specialty Start Date End Date Annemarie Montiel M.D. PCP - General 04/19/17 [address], [place] [address] documented as of this encounter
--- OUTSIDE RECORDS SUMMARY | 2022-07-25 09:09 | XMS_ITS | Encounter Summary ---
:1985 Author Organization [facility] Address [address] [place] [address] Care Team Providers Name Role Phone Annemarie Montiel M.D. Primary Care Provider Reason for Referral Specialty Diagnoses / Procedures Referred By Contact Refer red To Contact Annemarie Montiel M.D. [facility] [address] [place] [phone] Referral ID Status Reason Start Date Expiration Date Visits Requ ested Visits Authorized Encounter Details Date Type Department Care Team Description 07/24/2022 Orders Only [facility] Daniel Montiel M.D. [address], [place] [phone] (Wo rk) Social History [...] How often do you attend adventism or evangelical Never 07/04/2019 services? 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 [address], [place] [phone] (Wo rk) Scheduled Procedures [...] documented as of this encounter Care Teams Chili Pepper Grinder Relationship Specialty Start Date End Date Annemarie Montiel M.D. PCP - General 04/19/17 [address], [place] [address] documented as of this encounter
--- OUTSIDE RECORDS SUMMARY | 2022-07-25 09:09 | XMS_ITS | Clinical Summary ---
:1985 Author Organization [facility] Address [address] [place] [address] Care Team Providers Name Role Phone Unassigned, [...] for each transition of care or referral. [facility] Allergies No known active allergies Medications Medication [...] age to complete this topic Care Teams Sales Incentive Analyst Relationship Specialty Start Date End Date Unassigned, Provider PCP - General 08/08/[address] [place] [id number]
--- OUTSIDE RECORDS SUMMARY | 2022-07-25 09:09 | XMS_ITS | Encounter Summary ---
:1985 Author Organization [facility] Address [address] [place] [address] Care Team Providers Name Role Phone Unassigned, Provider Primary Care Provider Unavailable Reason for Visit Reason Comments Nutrition Counseling Encounter Details Date Type Department Care Team Description 04/09/2019 Nutrition [place] Bariat[facility] Surgery Roberta Sanchez, Morbid obesity with & Weight [facility] RDN, DAMON BMI of 40.0-44.9, [address] [facility]. [address] [facility] ([facility]) [address] [place] [phone] (Wo rk) Social History Tobacco Use Types [...] Sanchez, RD - 04/09/2019 9:30 AM CDT [facility] n[facility] Medical Nutrition Therapy: Bariatric Post-Op ASSESSMENT: Referring Provider: Evelia Temple PA-C BMI: Estimated body mass index is 34.04 kg/m?? as calculated from the following: Height as of 01/22/19: 5' 4 (162.6 cm). Weight as of 01/22/19: 198 lb 4.8 oz (89446 g). Follow-up after sleeve gastrectomy surgery. [place] Date of Surgery: July 23, 2018. 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 Reports issues with food tolerances - taste, [...] ([facility]) documented in this encounter Care Teams Death Claim Examiner Relationship Specialty Start Date End Date Unassigned, Provider PCP - General 08/08/[address] [place] [id number] documented as of this encounter
--- OUTSIDE RECORDS SUMMARY | 2022-07-25 09:09 | XMS_ITS | Encounter Summary ---
:1985 Author Organization [facility] Address [address] [place] [address] Care Team Providers Name Role Phone Unassigned, Provider Primary Care Provider Unavailable Reason for Visit Reason Comments RESULTS, X-RAY Encounter Details Date Type Department Care Team Description 05/01/2019 Telephone [place] [facility] & Mariajose Padilla R, RESULTS, X-RAY [facility] PAJett [address] [facility] [address] [facility] [address] [place] [address] [phone] Social History Tobacco Use Types Packs/Day Years [...] Performed by: [facility] COMPARISON: ??None. FINDINGS: Windows Vmware Engineer image of the abdomen shows a nonobstructive [...] on filedocumented in this encounter Care Teams Sales Attendant Building Materials Relationship Specialty Start Date End Date Unassigned, Provider PCP - General 08/08/00 [address] [place] [address] documented as of this encounter
--- OUTSIDE RECORDS SUMMARY | 2022-07-25 09:09 | XMS_ITS | Encounter Summary ---
:1985 Author Organization [facility] Address [address] [place] [address] Care Team Providers Name Role Phone Unavailable Primary Care Provider Unavailable Reason for Visit Reason Comments PUNCTURE, NOS Encounter Details Date Type Department Care Team Description 07/12/2000 Telephone Careline Kaci Jj RN PUNCTURE, NOS [address] [place], [place] [address] [address] [place] [address] [phone] (Wo rk) Social History Tobacco Use Types Packs/Day Years Used Date Smoking Tobacco: Never Assessed Sex Assigned at Date Recorded Not on file documented as of this encounter Nursing Notes 07/12/2000 11:59 PM CDT >> KACI JJ [facility] Jul 12, 2000 7:10 PM >> CALL RECEIVED. Contact: carmita [phone] Concern: Pt's mother is calling because her [...] and ask to speak to the physician activities concierge to decide if he fe els she should be evaluated tonight or if it can wait until tomorrow. Instructed to call back if sx worsen/change. Mother states understanding and is comfortable with plan. documented in this encounter Plan of Treatment Not on filedocumented as of this encounter Visit Diagnoses Not on filedocumented in this encounter
--- OUTSIDE RECORDS SUMMARY | 2022-07-25 09:09 | XMS_ITS | Encounter Summary ---
:1985 Author Organization [employer] Address [address] [place] [address] Care Team Providers Name Role Phone Unassigned, Provider Primary Care Provider Unavailable Reason for Referral (Routine) - Closed Specialty Diagnoses / Procedures Referred By Contact Refer red To Contact Diagnoses Bariatric surgery status Abdominal pain, unspecified abdominal location Deisy Hauser MBBS Procedures EGD [address] [place] [address] Referral ID Status Reason Start Date Expiration Date Visits Requ ested Visits Authorized [id number] Closed 05/27/2019 08/25/2020 1 1 Reason for Visit Reason Comments Sleeve Surg Followup Encounter Details Date Type Department Care Team Description 05/27/2019 Office Visit [facility] Bariatric Surgery Deisy Hauser Ba riatric surgery status (Primary Dx); & Weight Center HA[facility]E Abdominal pain, unspecified abdominal lo cation; [address] [facility] [address] Depression, major, recurrent, moderate ( [facility]) [address] [place] [place] [address] [place], [place] [phone] (Work) [phone] Social History Tobacco Use Types Packs/Day Years [...] foods for a few weeks. Go to www.Enervee.Novacem to learn more about this diet. You'll [...] cheese. Hard cheeseslike cheddar, Shahab, Parmesan, and Mongolian are okay. So are small amounts (1 [...] to eat. Soare pumpkin, rutabaga, seaweed, sprouts, Mongolian chard, and spinach. You can eat scallions (green partonly) and squash (not butternut). You can eat tomatoes, turnips, watercress, yams, and zucchini. Youcan also have small amounts of artichoke hearts (from can, 1 oz), carrots, corn (?? cob), and sweet potato (?? cup). Avoid: Artichokes, asparagus, [place] sprouts, wojciech cabbage, cauliflower, and celery. And [...] can you learn more? 1. Go to https://InPact.me/The Payments CompanyraFamilyApp or American Hometec/AFreezerary. 2. Enter L235 in the search box. Current as of: September 11, 2018 Content Version: 12.0 ?? [id number] BuddyTV. Care instructions adapted under license by your healthcare professional. If you have questions about a medical condition or this instruction, always ask your healthcare professional. [employer] disclaims any warranty or liability for your [...] any difficulty with dumping syndrome. She is grams of protein per day Fluid intake averages 48 to 64 oz per day. Exercise: none PMH, PSH and Family history were reviewed and updated in [facility] SOCIAL HISTORY: Social History Socioeconomic History ??? [...] file Gets together: Not on file Attends bahai service: Not on file Active member of [...] to schedule a visit with anyone around [facility]. Does report occasional part of harming [...] oz Goal Weight: 128 lb Starting BMI: 37.99666600 Percent Exess Weight Loss: 51.2092130581443 Current BMI: 29.45246002 Percent Totoal Body Weight Loss: 20.3311429278271 Last visit on 04/09/2019 was 174.7 pounds. [...] scheduling with counselor, patient was offered a [employer] services which she declined as she lives in [facility] and would like to schedule a visit [...] moderate documented in this encounter Care Teams Assembler [employer] Spider Relationship Specialty Start Date End Date Unassigned, Provider PCP - General 08/08/[address] [place] [id number] documented as of this encounter
--- OUTSIDE RECORDS SUMMARY | 2022-07-25 09:09 | XMS_ITS | Encounter Summary ---
:1985 Author Organization [employer] Address [address] [place] [address] Care Team Providers Name Role Phone Unassigned, Provider Primary Care Provider Unavailable Reason for Referral Procedure/Equipment (Routine) - Incomplete Specialty Diagnoses / Procedures Referred By Contact Refer red To Contact Diagnoses Epigastric pain Evelia Temple PA-C Procedures [place] UGI W Esophagus [address] [facility] [address] [place], [place] [address] Referral ID Status Reason Start Date Expiration Date Visits V isits Requested Authorized [id number] Incomplete 04/09/2019 07/08/2020 1 1 Reason for Visit Reason Comments Sleeve Surg Followup Encounter Details Date Type Department Care Team Description 04/09/2019 Office Visit [facility] Bariatric Evelia Temple Hypert ension, unspecified type (Primary Dx); Surgery & Weight ANASTACIO Poole Epigastric pain; Center [address] [place] [address] Status post bariatric surger y; [address] [facility] [address] Vitamin D deficiency; [address] [place], [place] Iron deficiency; [place] [address] Class 1 obesity with body mass index (BM I) of 30.0 to 30.9 in adult, unspecified obesity type, unspecified whether serious comorbidity present [id number] [phone] Social History Tobacco Use Types Packs/Day Years [...] AM CDT Call to schedule UGI UGI: [phone] documented in this encounter Progress Notes Evelia Temple PA-C - 04/09/2019 11:00 AM CDT Bariatric Surgery Post-Operative Follow Up DATE OF VISIT: 04/10/2019 SUBJECTIVE: This 34 y.o. year-old female with chronic medical problems including depression, anxiety presents for routine postoperative followup status post Laparoscopic Vertical Sleeve. Patient returns to the [facility] bariatric clinic for follow up. She had a vertical sleeve gastrectomy (using a 38 Emirati Bougie) and hiatal hernia repair at [facility] in [facility] by Dr. Noelle Akbar on 07/23/18. Patient's pre-operative weight was 294 lbs, BMI 50.4. Patient did have a CT scan of the abdomen about 2 weeks post-op due to abdominal pain and a absess vs seroma was seen to the abdominal wall, no evidence of a gastric sleeve leak. Patient states she moved back to [place] from [place] about 3 weeks after bariatric surgery. Patient [...] oz Goal Weight: 128 lb Starting BMI: 37.84468671 Percent Exess Weight Loss: 46.8684411135076 Current BMI: 30.3951293 Percent Totoal Body Weight Loss: 18.1157942060710 Date of surgery 07/23/2018. The patient is [...] file Gets together: Not on file Attends evangelical service: Not on file Active member of [...] (162.6 cm) Wt 174 lb 12.8 oz (90015 g) BMI 30.00 kg/m?? BMI: Estimated body mass index is 30 kg/m?? as calculated from the following: Height as of this encounter: 5' 4 (162.6 cm). Weight as of this encounter: 174 lb 12.8 oz (55805 g). GENERAL: Patient appears no apparent distress RESPIRATORY: Normal respiratory effort PSYCH: no overt evidence of anxiety or depression SKIN: no rashes on exposed skin NEURO: normal gait MUSCULOSKELETAL: no LE edema LABORATORY STUDIES: Recent [facility] 11/20/2018 Vitamin B12 888 Potassium 3.4 [...] lose further weight. Total time 25 minutes, [id number]-[id number]-[id number] counseling time 15 minutes, spent discussing lifestyle [...] 04/24/2019 2:18 PM CDT COMPARISON: ??None. FINDINGS: Pond Sawyer image of the abdomen [facility] a nonobstructive bowel gas pattern and postsurgical [...] different from the original. COMPARISON: None. FINDINGS: [place] Sawyer image of the abdomen [facility] [...] epigastric documented in this encounter Care Teams Asic Design Engineer Relationship Specialty Start Date End Date Unassigned, Provider PCP - General 08/08/[address] [place] [address] documented as of this encounter
--- OUTSIDE RECORDS SUMMARY | 2022-07-25 09:09 | XMS_ITS | Encounter Summary ---
:1985 Author Organization [employer] Address [address] [place] [address] Care Team Providers Name Role Phone Unassigned, Provider Primary Care Provider Unavailable Reason for Visit Reason Comments Sleeve Surg Followup Encounter Details Date Type Department Care Team Description 11/28/2018 Office Visit [facility] Bariatric Yoich, Evelia Hypert ension, unspecified type (Primary Dx); Surgery & Weight R, PA-C Status post bariatric surgery; Center [address] [facility] Intestinal malabsorption, un specified type; [address] [facility]. [facility] [address] Personal history of endocrine disorder; [address] [place], [place] Class 2 obesity with body ma ss index (BMI) of 36.0 to 36.9 in adult, unspecified obesity type, unspecified whether [place] [id number] [phone] Social History Tobacco Use Types Packs/Day Years [...] Comments Blood Pressure 124/77 11/28/2018 10:20 AM C UNIX DEVELOPER Pulse 71 11/28/2018 10:20 AM C UNIX DEVELOPER Temperature - - Respiratory Rate - - Oxygen Saturation - - Inhaled Oxygen Concentration - - Weight 97.7 kg (215 lb 6.4 oz) 11/28/2018 10:20 AM C UNIX DEVELOPER Height 162.6 cm (5' 4) 11/28/2018 10:20 AM C UNIX DEVELOPER Body Mass Index 36.97 11/28/2018 10:20 AM C UNIX DEVELOPER documented in this encounter Patient Instructions Patient Evelia Beltran PA-C - 11/28/2018 10:00 AM C UNIX DEVELOPER Congratulations on your many successes and keep [...] [facility]- ground floor of the [facility], [facility]. How: Come to any class (First class is free!), and if you like it purchase a 16 class voucher and then come when you can! By signing up you are NOT committed to class, simply acknowledging interest. Class is limited to 6 participants Cost: $150 for a 16 session voucher. -For more information please contact Munira at [phone] or [email or web address] Please join us! -Check us out on [...] prior to the test. You may call [phone] to schedule a lab appointment at the [facility] lab nearest you. Scheduled appointments are preferred; however, walk-ins are also accepted. The [place] location is open Saturdays. Exercise With Children: Scaffolds Yoga - http://www.Greenbox/category/watch/ Fit Factor Kids exercise Action Songs for Children - https://www.youSocrativeube.com/playlist?rivr=[email or web address] Leah - [email or web address]://[email or web address].Hypertension Diagnostics/style/kids-yoga C UNIX DEVELOPER documented in this encounter Progress Notes Evelia Temple PA-C - 11/28/2018 10:00 AM CST Bariatric Surgery Post-Operative Follow Up DATE OF VISIT: 12/02/2018 SUBJECTIVE: This 33 y.o. year-old female with chronic medical problems including depression, anxiety presents for routine postoperative followup status post Laparoscopic Vertical Sleeve. Patient presents to the [facility] bariatric clinic to establish care after a vertical sleeve gastrectomy (using a 38 Nepali Bougie) and hiatal hernia repair at [facility] in [facility] by Dr. Noelle Akbar on 07/23/18. [...] leak. Patient states she moved back to [place] from [place] about 3 weeks after bariatric surgery. 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 [...] oz Goal Weight: 128 lb Starting BMI: 37.63536204 Date of surgery 07/23/2018. The patient is [...] (162.6 cm) Wt 215 lb 6.4 oz (35859 g) BMI 36.97 kg/m?? BMI: Estimated body mass index is 36.97 kg/m?? as calculated from the following: Height as of this encounter: 5' 4 (162.6 cm). Weight as of this encounter: 215 lb 6.4 oz (10450 g). GENERAL: Patient appears no apparent distress RESPIRATORY: Normal respiratory effort PSYCH: no overt evidence of anxiety or depression SKIN: no rashes on exposed skin NEURO: normal gait MUSCULOSKELETAL: no LE edema LABORATORY STUDIES: Recent [facility] Labs 11/20/2018 Vitamin B12 888 Potassium [...] lose further weight. Total time 60 minutes, [id number]-tp-[id number] counseling time 45 minutes, spent discussing lifestyle interventions for management of weight post-surgery as above. Evelia Temple PA-C C UNIX DEVELOPER documented in this encounter Plan of Treatment Not on filedocumented as of this encounter Results PREALBUMIN (01/08/2019 3:24 PM C UNIX DEVELOPER) athologist Signature Prealbumin 17.5 16.0 - 38.0 PN SOFT mg/dL Specimen Anatomical Collection Method Collection Time Receive d Time (Source) Location / / Volume Laterality 01/08/2019 3:24 PM 9 6:54 C UNIX DEVELOPER PM C UNIX DEVELOPER Narrative PN SOFT - 01/08/2019 8:31 PM C UNIX DEVELOPER Performed at [facility], [address] [place] [address] CLIA number [id number] Evelia Temple PA-C LAB_1 Performing Organization Address [facility] Code Phon e Number PN SOFT [address] [place] [address] Calcium (01/08/2019 3:24 PM C UNIX DEVELOPER) athologist Signature Calcium 9.8 8.4 - 10.4 PN SOFT mg/dL Specimen Anatomical Collection Method Collection Time Receive d Time (Source) Location / / Volume Laterality 01/08/2019 3:24 PM 9 5:05 C UNIX DEVELOPER PM C UNIX DEVELOPER Narrative PN SOFT - 01/08/2019 5:28 PM C UNIX DEVELOPER Performed at [facility] [address] [place] [address] CLIA number [id number] Evelia Temple PA-C LAB_1 Performing Organization Address [facility] Phon e Number PN SOFT [address] [place] [address] Intact PTH (01/08/2019 3:24 PM C UNIX DEVELOPER) athologist Signature PTH 80 10 - 100 PN SOFT pg/mL Specimen Anatomical Collection Method Collection Time Receive d Time (Source) Location / / Volume Laterality 01/08/2019 3:24 PM 9 9:24 C UNIX DEVELOPER AM C UNIX DEVELOPER Narrative PN SOFT - 01/09/2019 10:19 AM C UNIX DEVELOPER Performed at [facility], [address] [place] [address] CLIA number [id number] Evelia Temple PA-C LAB_1 Performing Organization Address [facility] Phon e Number PN SOFT [address] [place] [address] Vitamin D 25-Hydroxy, Total (01/08/2019 3:24 PM C UNIX DEVELOPER) athologist Signature Vitamin D 25 Oh 22 20 - 80 PN SOFT ng/mL Comment: Deficiency = <20 Adequate ??= 20-29 Preferred = 30-50 Uncertain safety = 51-80 High = >80 Specimen Anatomical Collection Method Collection Time Receive d Time (Source) Location / / Volume Laterality 01/08/2019 3:24 PM 9 6:54 C UNIX DEVELOPER PM C UNIX DEVELOPER Narrative PN SOFT - 01/08/2019 8:11 PM C UNIX DEVELOPER Performed at [address] [address] CLIA number [id number] Evelia Temple PA-C LAB_1 Performing Organization Address [facility] Phon e Number PN SOFT [address] [place] [address] FERRITIN (01/08/2019 3:24 PM C UNIX DEVELOPER) P athologist Signature Ferritin Serum 108 9 - 204 PN SOFT ng/mL Specimen Anatomical Collection Method Collection Time Receive d Time (Source) Location / / Volume Laterality 01/08/2019 3:24 PM 9 6:54 C UNIX DEVELOPER PM C UNIX DEVELOPER Narrative PN SOFT - 01/08/2019 8:12 PM C UNIX DEVELOPER Performed at [address] [address] CLIA number [id number] Evelia Temple PA-C LAB_1 Performing Organization Address [facility] Phon e Number PN SOFT [address] [place] [address] (ABNORMAL) IRON PROFILE (IRON,TIBC,%SAT.(CALC)) (01/08/2019 3:24 PM C UNIX DEVELOPER) Patholo gist Method Time Signature Iron, Serum [...] Volume Laterality 01/08/2019 3:24 PM 9 6:54 C UNIX DEVELOPER PM C UNIX DEVELOPER Narrative PN SOFT - 01/08/2019 8:31 PM C UNIX DEVELOPER Performed at [address] [address] CLIA number [id number] Evelia Temple PA-C LAB_1 Performing Organization Address City/State/ZIP Code Phon e Number PN SOFT [address] [place] [address] [phone] documented in this encounter Visit Diagnoses Diagnosis [...] disorders documented in this encounter Care Teams Adobe Layer Relationship Specialty Start Date End Date Unassigned, Provider PCP - General 08/08/[address] [place] [address] documented as of this encounter
--- OUTSIDE RECORDS SUMMARY | 2022-07-25 09:09 | XMS_ITS | Encounter Summary ---
:1985 Author Organization [employer] Address [address] [place] [address] Care Team Providers Name Role Phone Unavailable Primary Care Provider Unavailable Reason for Visit Reason Comments VOMITING, BLOOD Encounter Details Date Type Department Care Team Description 06/05/2000 Telephone Careline Altagracia Sands RN VOMITING, BLOOD [address] AFTER HOURS CARE - [place], [place] [address] [place] [phone] [place] [address] Social History Tobacco Use Types Packs/Day Years Used Date Smoking Tobacco: Never Assessed Sex Assigned at Date Recorded Not on file documented as of this encounter Nursing Notes 06/05/2000 11:59 PM CDT CALL RECEIVED. Contact: [phone] Child vomited up a cup of bright red blood with clots at 3pm today. She was taken to the ER at [facility]. They gave her Zantac and Tyl. Was told to bring her back if she vomits blood again. Chi ld ishaving abd. pain. Color is flushed. Temp 99.7 at the hospital. Mother is very upset about being sent home from the ER without any answers to the hematemesis. Mother wants to bring child to [facility] now. She is asking about the coverage. Advised mother [facility] coverage will be according to her policy. Toldher we could not give her the exact coverage of her policy. Mother will be bringing child to [facility]. - Altagracia Sands Started and completed on SunJun 05, 2000 8:58 PM documented in this encounter Plan of Treatment Not on filedocumented as of this encounter Visit Diagnoses Not on filedocumented in this encounter
--- OUTSIDE RECORDS SUMMARY | 2022-07-25 09:09 | XMS_ITS | Encounter Summary ---
:1985 Author Organization [facility] Address [address] [place] [address] Care Team Providers Name Role Phone Unassigned, Provider Primary Care Provider Unavailable Reason for Visit Procedure/Equipment (Routine) - Incomplete Specialty Diagnoses / Procedures Referred By Contact Refer red To Contact Diagnoses Epigastric pain Evelia Temple PA-C Procedures [place] UGI W Esophagus [address] [facility] [address] [place], [place] [address] Referral ID Status Reason Start Date Expiration Date Visits V isits Requested Authorized [id number] Incomplete 04/09/2019 07/08/2020 1 1 Encounter Details Date Type Department Care Team Description 04/24/2019 Ancillary Procedure [facility] Evelia Temple Epigastric pain [address] [facility] [place] [address] [address] [facility] [phone] [facility] [address] [place], [place] [address] (Wo rk) Social History Tobacco Use Types [...] 04/24/2019 2:18 PM CDT COMPARISON: ??None. FINDINGS: Roller Turner image of the abdomen vivek ws a [...] different from the original. COMPARISON: None. FINDINGS: Roller Turner image of the abdomen [facility] ws a nonobstructive bowel gas pattern and [...] 12/25 documented in this encounter Care Teams Networking Technician Relationship Specialty Start Date End Date Unassigned, Provider PCP - General 08/08/[address] [place] [address] documented as of this encounter
--- OUTSIDE RECORDS SUMMARY | 2022-07-25 09:09 | XMS_ITS | Encounter Summary ---
:1985 Author Organization [employer] Address [address] [place] [address] Care Team Providers Name Role Phone Unassigned, Provider Primary Care Provider Unavailable Encounter Details Date Type Department Care Team Description 01/08/2019 Lab Visit [facility] Lab Status post bariatric surger y; [address] [address]. Intestinal malabsorption, un specified type; [place] [address] Personal history of endocrin e disorder [phone] Social History Tobacco Use Types Packs/Day Years [...] of Re sults for this 25-HYDROXY, TOTAL CASINO ENFORCEMENT AGENT endocrine disorder proc edure are in the results section. INTACT PTH Routine 01/08/2019 3:24 PM Status post Results f or this CASINO ENFORCEMENT AGENT bariatric surger y procedure are in Intestinal the results malabsorption, section. unspecified type PREALBUMIN Routine 01/08/2019 3:24 PM Status post Results f or this CASINO ENFORCEMENT AGENT bariatric surger y procedure are in Intestinal the results malabsorption, section. unspecified type FERRITIN Routine 01/08/2019 3:24 PM Status post Results f or this CASINO ENFORCEMENT AGENT bariatric surger y procedure are in Intestinal the results malabsorption, section. unspecified type IRON PROFILE Routine 01/08/2019 3:24 PM Status post Results f or this (IRON,TIBC,%SAT.(WENDI CASINO ENFORCEMENT AGENT bariatric s urgery procedure are in C)) Intestinal the results malabsorption, section. unspecified type CALCIUM Routine 01/08/2019 3:24 PM Status post Results f or this CASINO ENFORCEMENT AGENT bariatric surger y procedure are in Intestinal the results malabsorption, section. unspecified type documented in this encounter Results PREALBUMIN (01/08/2019 3:24 PM CASINO ENFORCEMENT AGENT) athologist Signature Prealbumin 17.5 16.0 - 38.0 PN SOFT mg/dL Specimen Anatomical Collection Method Collection Time Receive d Time (Source) Location / / Volume Laterality 01/08/2019 3:24 PM 9 6:54 CASINO ENFORCEMENT AGENT PM CASINO ENFORCEMENT AGENT Narrative PN SOFT - 01/08/2019 8:31 PM CASINO ENFORCEMENT AGENT Performed at [address] [address] CLIA number [id number] Evelia Temple PA-C LAB_1 Performing Organization Address [facility] Phon e Number PN SOFT [address] [place] [address] Calcium (01/08/2019 3:24 PM CASINO ENFORCEMENT AGENT) athologist Signature Calcium 9.8 8.4 - 10.4 PN SOFT mg/dL Specimen Anatomical Collection Method Collection Time Receive d Time (Source) Location / / Volume Laterality 01/08/2019 3:24 PM 9 5:05 CASINO ENFORCEMENT AGENT PM CASINO ENFORCEMENT AGENT Narrative PN SOFT - 01/08/2019 5:28 PM CASINO ENFORCEMENT AGENT Performed at [facility], [address] [place] [address] CLIA number [id number] Evelia Temple PA-C LAB_1 Performing Organization Address [facility] Phon e Number PN SOFT [address] [place] [address] Intact PTH (01/08/2019 3:24 PM CASINO ENFORCEMENT AGENT) athologist Signature PTH 80 10 - 100 PN SOFT pg/mL Specimen Anatomical Collection Method Collection Time Receive d Time (Source) Location / / Volume Laterality 01/08/2019 3:24 PM 9 9:24 CASINO ENFORCEMENT AGENT AM CASINO ENFORCEMENT AGENT Narrative PN SOFT - 01/09/2019 10:19 AM CASINO ENFORCEMENT AGENT Performed at [address] [address] CLIA number [id number] Evelia Poole Windy CHAVES LAB_1 Performing Organization Address [facility] Phon e Number PN SOFT [address] [place] [address] Vitamin D 25-Hydroxy, Total (01/08/2019 3:24 PM CASINO ENFORCEMENT AGENT) athologist Signature Vitamin D 25 Oh 22 20 - 80 PN SOFT ng/mL Comment: Deficiency = <20 Adequate ??= 20-29 Preferred = 30-50 Uncertain safety = 51-80 High = >80 Specimen Anatomical Collection Method Collection Time Receive d Time (Source) Location / / Volume Laterality 01/08/2019 3:24 PM 9 6:54 CASINO ENFORCEMENT AGENT PM CASINO ENFORCEMENT AGENT Narrative PN SOFT - 01/08/2019 8:11 PM CASINO ENFORCEMENT AGENT Performed at [address] [address] CLIA number [id number] Evelia Poole Windy MCCONNELLC LAB_1 Performing Organization Address [facility] Phon e Number PN SOFT [address] [place] [address] FERRITIN (01/08/2019 3:24 PM CASINO ENFORCEMENT AGENT) athologist Signature Ferritin Serum 108 9 - 204 PN SOFT ng/mL Specimen Anatomical Collection Method Collection Time Receive d Time (Source) Location / / Volume Laterality 01/08/2019 3:24 PM 9 6:54 CASINO ENFORCEMENT AGENT PM CASINO ENFORCEMENT AGENT Narrative PN SOFT - 01/08/2019 8:12 PM CASINO ENFORCEMENT AGENT Performed at [address] [address] CLIA number [id number] Evelia Poole Windy CHAVES LAB_1 Performing Organization Address [facility] Phon e Number PN SOFT [address] [place] [address] (ABNORMAL) IRON PROFILE (IRON,TIBC,%SAT.(CALC)) (01/08/2019 3:24 PM CASINO ENFORCEMENT AGENT) [facility] Method Time Signature Iron, Serum 49 [...] Volume Laterality 01/08/2019 3:24 PM 9 6:54 CASINO ENFORCEMENT AGENT PM CASINO ENFORCEMENT AGENT Narrative PN SOFT - 01/08/2019 8:31 PM CASINO ENFORCEMENT AGENT Performed at [address] [address] CLIA number [id number] Evelia Temple PA-C LAB_1 Performing Organization Address City/State/ZIP Code Phon e Number SOFT [address] [place] [address] [phone] documented in this encounter Visit Diagnoses Diagnosis Status post bariatric surgery Bariatric surgery status Intestinal malabsorption, unspecified ty pe Personal history of endocrine disorder Personal history of other endocrine, met abolic, and immunity disorders documented in this encounter Care Teams Watch Crystal Molder Relationship Specialty Start Date End Date Unassigned, Provider PCP - General 08/08/[address] [place] [address] documented as of this encounter
--- OUTSIDE RECORDS SUMMARY | 2022-07-25 09:09 | XMS_ITS | Encounter Summary ---
:1985 Author Organization [facility] Address [address] [place] [address] Care Team Providers Name Role Phone Unassigned, Provider Primary Care Provider Unavailable Reason for Visit Reason Comments Sleeve Surg Followup DOS 07/2018 in [place] Encounter Details Date Type Department Care Team Description 01/22/2019 Office Visit [place] Bariatric Shelendich, Evelia Hypert ension, unspecified type (Primary Dx); Surgery & Weight R, PA-C Status post bariatric surgery; Center [facility] Vitamin D deficiency; [address] Iron deficiency [address] [place] [address] [phone] Social History Tobacco Use Types Packs/Day Years [...] pain and frothing - triggers, how often Xceleron (Chapter 11)ube Channels with variety of exercises: BeFit - https://www.ChartITright.[employer]/user/BeFit Daily Burn - https://www.ChartITright.[employer]/user/dailyburn FitnessBlender - https://www.[employer]/user/FitnessBlender Hagen Fitness - https://www.ChartITright.[employer]/user/mdloughy PopSugar - https://www.ChartITright.[employer]/user/popsugartvfit HasFit - https://www.[employer]/user/lifeIOsPerform Dancing/Chandu - https://www.ChartITright.[employer]/user/FitnesswithJessica Exercise With Children: EDMdesigner Kids Yoga - http://www.[employer]/category/watch/ Fit Factor Kids exercise Action Songs for Children - https://www.ChartITright.[employer]/playlist?zbml=KY51I0J045R486DU10 Leah - https://www.[employer]/style/kids-yoga Low Intensity Exercise: Yoli Badin yoga - Https://www.ChartITright.[employer]/user/TaraStilesYoga/featured Yoga with Genet - https://www.ChartITright.[employer]/user/yogawithadriene Fightmaster Yoga - https://www.[employer]/user/lessandyfightmaster Xceleron (Chapter 11)ube Chair exercises for weight loss - https://www.ChartITright.com/results?search_query=chair+exercises+for+weight+loss Euroffice Low impact cardio workout for beginners - https://www.ChartITright.com/results?search_query=low+ impact+cardio+workout+for+beginners Exercise Apps: 7 minute workout documented in this encounter Progress Notes Evelia Temple PA-C - 01/22/2019 11:00 AM CDT Bariatric Surgery Post-Operative Follow Up DATE OF VISIT: 01/22/2019 SUBJECTIVE: This 33 y.o. year-old female with chronic medical problems including depression, anxiety presents for routine postoperative followup status post Laparoscopic Vertical Sleeve. Patient returns to the [facility] bariatric clinic for follow up. She had a vertical sleeve gastrectomy (using a 38 Somali Bougie) and hiatal hernia repair at [facility] in [facility] by Dr. Noelle Akbar on 07/23/18. Patient's pre-operative weight was 294 lbs, BMI 50.4. Patient did have a CT scan of the abdomen about 2 weeks post-op due to abdominal pain and a absess vs seroma was seen to the abdominal wall, no evidence of a gastric sleeve leak. Patient states she moved back to [place] from [place] about 3 weeks after bariatric surgery. Patient did not follow up with dietitians after last visit due to poor weather conditions. [place], [place]. Patient did complete labs after last [...] oz Goal Weight: 128 lb Starting BMI: 37.52556644 Percent Exess Weight Loss: 19.8420275808190 Current BMI: 34.254787113 Percent Totoal Body Weight Loss: 7.54187939070664 Date of surgery 07/23/2018. The patient is [...] (162.6 cm) Wt 198 lb 4.8 oz (23014 g) BMI 34.04 kg/m?? BMI: Estimated body mass index is 34.04 kg/m?? as calculated from the following: Height as of this encounter: 5' 4 (162.6 cm). Weight as of this encounter: 198 lb 4.8 oz (37673 g). GENERAL: Patient appears no apparent distress RESPIRATORY: Normal respiratory effort PSYCH: no overt evidence of anxiety or depression SKIN: no rashes on exposed skin NEURO: normal gait MUSCULOSKELETAL: no LE edema LABORATORY STUDIES: Recent [facility] 11/20/2018 Vitamin B12 888 Potassium 3.4 [...] lose further weight. Total time 25 minutes, azvo-rx-aezg counseling time 15 minutes, spent discussing lifestyle [...] metabolism documented in this encounter Care Teams Final Inspector Truck Trailer Relationship Specialty Start Date End Date Unassigned, Provider PCP - General 08/08/[address] [place] [address] documented as of this encounter
--- OUTSIDE RECORDS SUMMARY | 2022-07-25 09:09 | XMS_ITS | Clinical Summary ---
:1985 Author Organization [facility] Address [address] [place] [address] Care Team Providers Name Role Phone Annemarie Montile M.D. Primary Care Provider [phone] Source Comments Patient records contain information from all sites at [facility]. For routine questions regarding patient records, call [phone] during business hours, M-F 8:00 AM - 5:00 PM Central Time. Record requests for emergency care only can be directed to [phone] at any time.[facility] Allergies Active Allergy Reactions Severity Noted Date [...] BY MOUTH ONCE DAILY FOR 5 DAYS axzirndlgirn-Fr-xdfv-min Take 1 tablet by 0 Active erals [...] 0 07/28/2020 Active mg 24 hr tablet pnjljpy-Ef-rqic-FA Take 1 tablet by mouth daily. 0 Active (VINATE ONE) 60 mg iron-1 mg per tablet Active Problems Problem Noted Date Excessive And Redundant Skin And Subcutaneous Tissue 0 04/11/2022 Overview: Added automatically from [facility] for [facility] [id number] Panniculitis 11/07/2019 Overview: Added automatically from [facility] for [facility] [id number] Hypokalemia 11/25/2018 Last Assessment & Plan: Formatting [...] Montiel M.D. 06/13/2022 Clinical [facility] Araseli SparksB.S. 05/19/2022 Clinical Communication Plastic Surgery [facility], insurance request Araseli SparksB.S. 05/18/2022 Procedure visit [...] How often do you attend orthodox or zoroastrian Never 07/04/2019 services? 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 Last Filed Vital Signs Vital Sign Reading Time Taken Comments Blood Pressure 98/61 10/06/2020 9:17 AM ARTS EDUCATION TEACHER Pulse 82 10/06/2020 9:17 AM ARTS EDUCATION TEACHER Temperature 37 ??C (98.6 ??F) 12/17/2019 8:30 AM ARTS EDUCATION TEACHER Respiratory Rate 16 12/17/2019 8:30 AM ARTS EDUCATION TEACHER Oxygen Saturation 98% 12/17/2019 8:30 AM ARTS EDUCATION TEACHER Inhaled Oxygen Concentration - - Weight 75 kg (165 lb 5.5 oz) 10/06/2020 9:17 AM ARTS EDUCATION TEACHER Height 162.5 cm (5' 3.98) 10/06/2020 9:17 AM ARTS EDUCATION TEACHER Body Mass Index 28.4 10/06/2020 9:17 AM ARTS EDUCATION TEACHER Plan of Treatment Upcoming Encounters Date Type Specialty Care Team Description 08/17/2022 Procedure visit Neurology Marina Winter M.D., M.P.H. [address] [phone] (Wo rk) Scheduled Procedures Name Priority [...] this topic Medical Devices Implanted Type Area Straightening Roll Operator Device Shelf Model / Identifier Expiration Serial / Date Lot Conversions - Default Historical Implant Device Hardware Mouth Implanted: 11/06/2014 (Quantity not on file) e.g. pins/screws/ rods Description: Body Location - Mouth. both sides of jaw. Device Status Text - Hardware. Clp Hrzn Ti 6 Clp Sm Red - [id number] Hardware e.g. N/A: Teleflex [id number] 03/25/2024 [id number] / Implanted: Qty: 1 on 12/16/2019 by Clare Arizmendi M.B.BRodrigoSRodrigo at [facility] pins/screws/rods Abdomen [facility] / [id number] Procedures Procedure Name Priority Date/Time Associated Comments Diagnosis LA CHEMODENERV FACIAL Routine 05/18/2022 1:53 PM Migraine Head ache Results for this TRIGEM NIDHI CDT procedure are i n the results section. from Last 3 Months Results LA CHEMODENERV FACIAL TRIGEM NIDHI (05/18/2022 1:53 PM CDT) Narrative MMODAL - 05/18/2022 1:53 PM CDT Marina Winter M.D., M.P.H. ? 05/18/2022 ??2:05 PM Botox for Chronic Migraine Date/Time: 05/18/2022 1:53 PM Performed by: Marina iWnter M.D., M.P .H. Authorized by: Marina Winter M.D., M. P.H. PROCEDURE DETAILS ?? Pre-procedure pain score: 0/10 Injection of: 100 Units onabotulinumtoxi nA 100 unit; 100 Units onabotulinumtoxinA 100 unit; 50 Units on abotulinumtoxinA 100 unit Needle gauge: 30 Needle length: 0.5 in Injection site details System Programmer / Procerus muscle(s): 5 units into the left fountain attendant muscle, 5 units into the right fountain attendant muscle and 5 units into the procerus [...] that is not covered by a third constitution party. ?? Prior preventative medication trials: to [...] Effective Dates Phone Address Type / Group [facility] [id number] 2021-Presen [phone] [address] Medicaid HMO t 5 [place] [address] [place] (Home) [place] [address] Advance Directives For more information, please contact: [phone] Latest Code Status on File Code Status Date Activated Date Inactivated Comments Full Code 12/16/2019 3:26 PM 12/17/2019 12:11 PM Full Code: Discussed Care Teams Religious Education Director Relationship Specialty Start Date End Date Annemarie Montiel M.D. PCP - General 04/19/17 [address] [place] [phone]
--- OUTSIDE RECORDS SUMMARY | 2022-07-25 09:09 | XMS_ITS | Encounter Summary ---
:1985 Author Organization [employer] Address [address] [place] [address] Care Team Providers Name Role Phone Unassigned, Provider Primary Care Provider Unavailable Reason for Visit Reason Comments APPOINTMENT REQUEST to review medication refill and establish with new provider. Encounter Details Date Type Department Care Team Description 08/11/2019 Telephone [place] [facility] Radha Kruger, APPOINTMENT REQUEST (to [facility] supervisory clerk medication [address] [facility] refill and establish [address] with new provider. ) [place] [address] Social History Tobacco Use Types Packs/Day Years [...] on filedocumented in this encounter Care Teams Mechanical Estimator Relationship Specialty Start Date End Date Unassigned, Provider PCP - General 08/08/00 [address] [place] [address] documented as of this encounter
--- OUTSIDE RECORDS SUMMARY | 2022-07-25 09:09 | XMS_ITS | Encounter Summary ---
:1985 Author Organization [facility] Address [address] [place] [address] Care Team Providers Name Role Phone Annemarie Montiel M.D. Primary Care Provider [phone] Reason for Visit Reason Comments Insurance denial Encounter Details Date Type Department Care Team Description 06/13/2022 Clinical Communication Division of Plastic Liam white, Insurance denial Surgery in [place], [place] M.B.B.S. [address] [facility] [address] [place] [phone] Social History Tobacco Use Types Packs/Day Years [...] How often do you attend scientology or yazidi Never 07/04/2019 services? Do you [...] ROOM HOSTESS documented as of this encounter Miscellaneous Notes [...] brachioplasty. The Cosmetic Surgery Package Quotation form ([id number]) was completed and sent to the [facility] Estimating office for processing. The Cosmetic Surgery [...] visit Neurology Marina Winter M.D., M.P.H. [address] [place] [phone] (Wo rk) Scheduled Procedures Name Priority Associated Diagnoses Date/Time LIFT THIGH Excessive And Redundant Skin And Subcutaneous Tissue documented as of this encounter Visit Diagnoses Not on filedocumented in this encounter Additional Health Concerns Assessment Noted Time PHQ-9 Depression Total Score: 12 06/10/2020 1:20 PM CD T documented as of this encounter Care Teams Golf Superintendent Relationship Specialty Start Date End Date Annemarie Montiel M.D. PCP - General 04/19/17 [address] [place] [phone] documented as of this encounter
--- OUTSIDE RECORDS SUMMARY | 2022-07-25 09:10 | XMS_ITS | Encounter Summary ---
:1985 Author Organization [facility] Address [address] [place] [address] Care Team Providers Name Role Phone Annemarie Montiel M.D. Primary Care Provider [phone] Encounter Details Date Type Department Care Team Description 02/04/2021 Orders Only [facility] Sa solomon Jacobs M.D. [address] [place], [place] [phone] (Wo rk) Social History [...] How often do you attend mandaen or gnosticist Never 07/04/2019 services? 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 [address] [place], [place] [phone] (Wo rk) Scheduled Procedures Name Priority Associated Diagnoses Date/Time LIFT THIGH Excessive And Redundant Skin And Subcutaneous Tissue documented as of this encounter Visit Diagnoses Not on filedocumented in this encounter Additional Health Concerns Assessment Noted Time PHQ-9 Depression Total Score: 12 06/10/2020 1:20 PM CD T documented as of this encounter Care Teams Electric Motor Repair Supervisor Relationship Specialty Start Date End Date Annemarie Montiel M.D. PCP - General 04/19/[address] [place] [address] documented as of this encounter
--- OUTSIDE RECORDS SUMMARY | 2022-07-25 09:10 | XMS_ITS | Encounter Summary ---
:1985 Author Organization [facility] Address [address] [place] [address] Care Team Providers Name Role Phone Annemarie Montiel M.D. Primary Care Provider [phone] Encounter Details Date Type Department Care [...] often do you attend latter day or voodoo Never 07/04/2019 services? 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 [address] [phone] (Wo rk) Scheduled Procedures [...] documented as of this encounter Care Teams Critical Power Install Technician Relationship Specialty Start Date End Date Annemarie Montiel M.D. PCP - General 04/19/[address], [place] [address] documented as of this encounter
--- OUTSIDE RECORDS SUMMARY | 2022-07-25 09:10 | XMS_ITS | Encounter Summary ---
:1985 Author Organization [facility] Address [address] [place] [address] Care Team Providers Name Role Phone Annemarie Montiel M.D. Primary Care Provider [phone] Encounter Details Date Type Department Care Team Description 02/25/2020 Clinical Communication Division of Plastic Liam white, Surgery in [place], Surendra Sparks.B.S. 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 [address] [phone] (Wo rk) Scheduled Procedures Name Priority Associated Diagnoses Date/Time LIFT THIGH Excessive And Redundant Skin And Subcutaneous Tissue documented as of this encounter Visit Diagnoses Not on filedocumented in this encounter Additional Health Concerns Assessment Noted Time PHQ-9 Depression Total Score: 15 02/20/2020 12:57 PM C DT documented as of this encounter Care Teams Postdoctoral Scientist Relationship Specialty Start Date End Date Annemarie Montiel M.D. PCP - General 04/19/[address] [phone] documented as of this encounter
--- OUTSIDE RECORDS SUMMARY | 2022-07-25 09:10 | XMS_ITS | Encounter Summary ---
:[address] [facility] Address [address] [place] [address] Care Team Providers Name Role Phone Annemarie Montiel M.D. Primary Care Provider [phone] Encounter Details Date Type Department Care Team Description 05/16/2022 Clinical Communication Department of Neurology Marina Winter, in [facility] jeevan Jaramillo, M.P.H. [address] [facility] [address] [place] [phone] Social History Tobacco Use Types Packs/Day Years [...] How often do you attend restoration or christian Never 07/04/2019 services? 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 [address] [place], [place] [phone] (Wo rk) Scheduled Procedures Name Priority Associated Diagnoses Date/Time LIFT THIGH Excessive And Redundant Skin And Subcutaneous Tissue documented as of this encounter Visit Diagnoses Not on filedocumented in this encounter Additional Health Concerns Assessment Noted Time PHQ-9 Depression Total Score: 12 06/10/2020 1:20 PM CD T documented as of this encounter Care Teams Marriage And Family Social Worker Relationship Specialty Start Date End Date Annemarie Montiel M.D. PCP - General 04/19/17 [address] [place] [phone] documented as of this encounter
--- OUTSIDE RECORDS SUMMARY | 2022-07-25 09:10 | XMS_ITS | Encounter Summary ---
:1985 Author Organization [facility] Address [address] [place] [address] Care Team Providers Name Role Phone Annemarie Montiel M.D. Primary Care Provider [phone] Reason for Referral Specialty Diagnoses / Procedures Referred By Contact Refer red To Contact Annemarie Montiel M.D. [facility] Region [address], [place] [address] Referral ID Status Reason Start Date Expiration Date Visits Requ ested Visits Authorized CONDUCTOR DIES LOADER Encounter Details Date Type Department Care Team Description 10/09/2021 Orders Only [facility] PCP [facility] Daniel Montiel M.D. [address], [place] [phone] (Wo rk) Social History [...] How often do you attend buddhism or methodist Never 07/04/2019 services? 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 10:53 AM SEMICONDUCTOR DIES LOADER documented as of this encounter Plan of Treatment Upcoming Encounters Date Type Specialty Care Team Description 08/17/2022 Procedure visit Neurology Marina Winter M.D., M.P.[facility] [address], [place] [phone] (Wo rk) Scheduled Procedures [...] documented as of this encounter Care Teams Stock Puller Relationship Specialty Start Date End Date Annemarie Montiel M.D. PCP - General 04/19/[address] [phone] documented as of this encounter
--- OUTSIDE RECORDS SUMMARY | 2022-07-25 09:10 | XMS_ITS | Encounter Summary ---
:1985 Author Organization [facility] Address [address] [place] [address] Care Team Providers Name Role Phone Annemarie Montiel M.D. Primary Care Provider [phone] Reason for Referral Outpatient (Routine) - Authorized Specialty Diagnoses / Procedures Referred By Contact Refer red To Contact Diagnoses Migraine Headache Marina Winter M.D., [facility] Procedures Botox for chronic migraine M.P.H. [address] [place] [phone] Referral ID Status Reason Start Date Expiration Date Visits V isits Requested Authorized [id number] Authorized 08/04/2021 08/04/2022 1 1 Reason for Visit Reason Comments Botulinum Toxin Injection Outpatient (Routine) - Closed Specialty Diagnoses / Procedures Referred By Contact Refer red To Contact Diagnoses Migraine Headache Marina Winter M.D., [facility] Procedures Botox for Chronic Migraine M[facility]P.[facility] [address] [place] [address] Referral ID Status Reason Start Date Expiration Date Visits Requ ested Visits Authorized [id number] Closed 05/05/2021 05/05/2022 1 1 Encounter Details Date Type Department Care Team Description 08/04/2021 Procedure visit Department of Neurology Marina Winter, Migraine Headache in [facility] jeevan Jaramillo, M.P.H. [address] [place] [phone] Social History Tobacco Use Types Packs/Day Years [...] How often do you attend jain or confucianism Never 07/04/2019 services? 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 10:53 AM VACUUM TANK TENDER documented as of this encounter Procedure Notes Marina Winter M.D., M.P.H. - 08/04/2021 1:45 PM [...] Needle length: 0.5 in Injection site details County Attorney / Procerus muscle(s): 5 units into the left motor and generator assembler muscle, 5 units into the right motor and generator assembler muscle and 5 units into the procerus [...] visit Neurology Marina Winter M.D., M[facility]P.[facility] [address] [place] [phone] (Wo rk) Scheduled Procedures Name Priority Associated Diagnoses Date/Time LIFT THIGH Excessive And Redundant Skin And Subcutaneous Tissue documented as of this encounter Procedures Procedure Name Priority Date/Time Associated Comments Diagnosis [place] CHEMODENERV FACIAL Routine 08/04/2021 1:21 PM Migraine Head ache Results for this TRIGEM NIDHI CDT procedure are i n the results section. documented in this encounter Results [place] CHEMODENERV FACIAL TRIGEM NIDHI (08/04/2021 1:21 PM [...] Needle length: 0.5 in Injection site details County Attorney / Procerus muscle(s): 5 units into the left motor and generator assembler muscle, 5 units into the right motor and generator assembler muscle and 5 units into the procerus [...] documented as of this encounter Care Teams Outside Medical Sales Representative Relationship Specialty Start Date End Date Annemarie Montiel M.D. PCP - General 04/19/[address] [phone] documented as of this encounter
--- OUTSIDE RECORDS SUMMARY | 2022-07-25 09:10 | XMS_ITS | Encounter Summary ---
:1985 Author Organization [facility] Address [address] [place] [address] Care Team Providers Name Role Phone Annemarie Montiel M.D. Primary Care Provider [phone] Encounter Details Date Type Department Care [...] How often do you attend hinduism or confucianist Never 07/04/2019 services? 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 10:53 AM SPINDLE TESTER documented as of this encounter Plan of Treatment Upcoming Encounters Date Type Specialty Care Team Description 08/17/2022 Procedure visit Neurology Marina Winter M.D., M.P.[facility]. [address] [phone] (Wo rk) Scheduled Procedures [...] documented as of this encounter Care Teams Sound Equipment Mechanic Relationship Specialty Start Date End Date Annemarie Montiel M.D. PCP - General 04/19/17 [address] [place] [phone] documented as of this encounter
--- OUTSIDE RECORDS SUMMARY | 2022-07-25 09:10 | XMS_ITS | Encounter Summary ---
:1985 Author Organization [facility] Address [address] [place] [address] Care Team Providers Name Role Phone Annemarie Montiel M.D. Primary Care Provider [phone] Reason for Referral Outpatient (Routine) - Authorized Specialty Diagnoses / Procedures Referred By Contact Refer red To Contact Diagnoses Migraine Headache Marina Winter M.D., [facility] Procedures Botox for Chronic Migraine M.P.H. [address] [place] [phone] Referral ID Status Reason Start Date Expiration Date Visits V isits Requested Authorized [id number] Authorized 05/18/2022 05/18/2023 4 4 Reason for Visit Reason Comments Botulinum Toxin Injection Outpatient (Routine) - Authorized Specialty Diagnoses / Procedures Referred By Contact Refer red To Contact Diagnoses Migraine Headache Marina Winter M.D., [facility] Procedures Botox for Chronic Migraine M.P.H[facility] [address] [place] [address] Referral ID Status Reason Start Date Expiration Date Visits V isits Requested Authorized [id number] Authorized 10/06/2020 10/06/2022 4 4 Encounter Details Date Type Department Care Team Description 05/18/2022 Procedure visit Department of Neurology Marina Winter, Migraine Headache in [facility] jeevan Jaramillo, M.P.H. [address] [place] [phone] [phone] Social History Tobacco Use Types Packs/Day Years [...] 03/29/2020 relatives? How often do you attend restorationist or mu-ism Never 07/04/2019 services? Do you belong to any clubs or organizations such as No 07/04/2019 restorationist groups, unions, fraternal or athletic groups, or [...] at Date Recorded Female 10/16/2018 10:53 AM DINKER documented as of this encounter Procedure Notes [...] Needle length: 0.5 in Injection site details Career Coach / Procerus muscle(s): 5 units into the left optomechanical engineer muscle, 5 units into the right optomechanical engineer muscle and 5 units into the procerus [...] not covered by a third constitution party. Prior preventative medication trials: topiramate and amitriptyline Headache frequency Headache days per month: 4 days Severe headache days per month: 2 days POST-PROCEDURE DETAILS Complications: no apparent complications documented in this encounter Plan of Treatment Upcoming Encounters Date Type Specialty Care Team Description 08/17/2022 Procedure visit Neurology Marina Winter M.D., M[facility]P.[facility] [address] [phone] (Wo rk) Scheduled Orders Name Type Priority Associated Diagnoses Order S chedule Botox for Chronic Procedures Routine Migraine Headache 4 Occ urrences starting Migraine 05/18/2022 unti l 05/18/2025 Scheduled Procedures Name Priority Associated Diagnoses Date/Time LIFT THIGH Excessive And Redundant Skin And Subcutaneous Tissue documented as of this encounter Procedures Procedure Name Priority Date/Time Associated Comments Diagnosis [place] CHEMODENERV FACIAL Routine 05/18/2022 1:53 PM Migraine Head ache Results for this TRIGEM NIDHI CDT procedure are i n the results section. documented in this encounter Results [place] CHEMODENERV FACIAL TRIGEM NIDHI (05/18/2022 1:53 PM [...] Needle length: 0.5 in Injection site details Career Coach / Procerus muscle(s): 5 units into the left optomechanical engineer muscle, 5 units into the right optomechanical engineer muscle and 5 units into the procerus [...] documented as of this encounter Care Teams Social Sciences Chair Relationship Specialty Start Date End Date Annemarie Montiel M.D. PCP - General 04/19/17 [address] [place] [phone] documented as of this encounter
--- OUTSIDE RECORDS SUMMARY | 2022-07-25 09:10 | XMS_ITS | Encounter Summary ---
:[address] [facility] Address [address] [place] [address] Care Team Providers Name Role Phone Annemarie Montiel M.D. Primary Care Provider Reason for Visit Outpatient (Routine) - Closed Specialty Diagnoses / Procedures Referred By Contact Refer red To Contact Plastic Surgery Leyla River P.A.-C., [facility] [address] [facility] [place], [place] [address] Referral ID Status Reason Start Date Expiration Date Visits Requ ested Visits Authorized [id number] Closed 12/30/2019 12/29/2020 1 1 Encounter Details Date Type Department Care Team Description 03/09/2020 Virtual Visit Division of Plastic Ishmael Deleon; Surgery in [place], Surendra SparksSRodrigo Surgery Bariatric Status Post [place] [address] [facility] [address] [place] [address] [phone] Social History Tobacco Use Types Packs/Day Years [...] How often do you attend mandaen or restorationism Never 07/04/2019 services? 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 [address], [place] [phone] (Wo rk) Scheduled Procedures Name Priority Associated Diagnoses Date/Time LIFT THIGH Excessive And Redundant Skin And Subcutaneous Tissue documented as of this encounter Visit Diagnoses Diagnosis Panniculitis Surgery Bariatric Status Post documented in this encounter Additional Health Concerns Assessment Noted Time PHQ-9 Depression Total Score: 15 2020 3:09 PM CD T documented as of this encounter Care Teams Rn Charge Relationship Specialty Start Date End Date Annemarie Montiel M.D. PCP - General 04/19/17 [address] [address] documented as of this encounter
--- OUTSIDE RECORDS SUMMARY | 2022-07-25 09:10 | XMS_ITS | Encounter Summary ---
:1985 Author Organization [facility] Address [address] [place] [address] Care Team Providers Name Role Phone Annemarie Montiel M.D. Primary Care Provider [phone] Reason for Visit Reason Comments Depression PHQ9 Encounter Details Date Type Department Care Team Description 07/22/2020 Clinical Department of Annemarie Montiel Depression (PHQ9) Communication Family MedicineNadia M.D. [facility], [address] [facility] [phone] [address] [facility] [phone] [place], [place] (Work) [phone] Social History Tobacco Use [...] How often do you attend orthodox or mormonism Never 07/04/2019 services? 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 documented in this encounter Plan of Treatment Upcoming Encounters Date Type Specialty Care Team Description 08/17/2022 Procedure visit Neurology Marina Winter M.D., [facility] [address] [place], [place] [phone] (Wo rk) Scheduled Procedures Name Priority Associated Diagnoses Date/Time LIFT THIGH Excessive And Redundant Skin And Subcutaneous Tissue documented as of this encounter Visit Diagnoses Not on filedocumented in this encounter Additional Health Concerns Assessment Noted Time PHQ-9 Depression Total Score: 12 06/10/2020 1:20 PM CD T documented as of this encounter Care Teams Glue Mounter Operator Relationship Specialty Start Date End Date Annemarie Montiel M.D. PCP - General 04/19/[address] [place] [phone] documented as of this encounter
--- OUTSIDE RECORDS SUMMARY | 2022-07-25 09:10 | XMS_ITS | Encounter Summary ---
:1985 Author Organization [facility] Address [address] [place] [address] Care Team Providers Name Role Phone Annemarie Montiel M.D. Primary Care Provider [phone] Reason for Referral Outpatient (Routine) - Closed Specialty Diagnoses / Procedures Referred By Contact Refer red To Contact Diagnoses Migraine Headache Marina Winter M.D., [facility] Procedures Botox for chronic migraine [place] INJECTION,ONABOTULINUMTOXINA [place] CHEMODENERV FACIAL TRIGEM NIDHI M.P.H. [address] [place] [phone] Referral ID Status Reason Start Date Expiration Date Visits Requ ested Visits Authorized [id number] Closed 11/04/2020 11/04/2021 1 4 R AND BOTTOM LACER HAND Reason for Visit Reason Comments Botulinum Toxin Injection Outpatient (Routine) - Authorized Specialty Diagnoses / Procedures Referred By Contact Refer red To Contact Diagnoses Migraine Headache Marina Winter M.D., [facility] Procedures Botox for Chronic Migraine M.P.H. [address] [place] [phone] Referral ID Status Reason Start Date Expiration Date Visits V isits Requested Authorized [id number] Authorized 10/06/2020 10/06/2022 4 4 Encounter Details Date Type Department Care Team Description 11/04/2020 Procedure visit Department of Neurology Marina Winter, Migraine Headache in [facility] jeevan Jaramillo, M.P.H. [address] [place], [place] [phone] [phone] Social History Tobacco Use Types Packs/Day Years [...] How often do you attend zoroastrian or jainism Never 07/04/2019 services? 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 10:53 AM UPPER AND BOTTOM LACER HAND documented as of this encounter Procedure Notes [...] Needle length: 0.5 in Injection site details Global Compensation Director / Procerus muscle(s): 5 units into the left drywall hanger framer muscle, 5 units into the right drywall hanger framer muscle and 5 units into the procerus [...] a third libertarian. Prior preventative medication trials: amitriptyline, propranolol and topiramate Headache frequency Headache days per month: 8 days Severe headache days per month: 4 days POST-PROCEDURE DETAILS: Procedure completed successfully: yes Complications: no apparent complications R AND BOTTOM LACER HAND documented in this encounter Plan of Treatment Upcoming Encounters Date Type Specialty Care Team Description 08/17/2022 Procedure visit Neurology Marina Winter M.D., [facility] [address] [place] [phone] (Wo rk) Scheduled Procedures Name Priority Associated Diagnoses Date/Time LIFT THIGH Excessive And Redundant Skin And Subcutaneous Tissue documented as of this encounter Procedures Procedure Name Priority Date/Time Associated Comments Diagnosis [place] CHEMODENERV FACIAL Routine 11/04/2020 8:45 AM Migraine Head ache Results for this TRIGEM NIDHI UPPER AND BOTTOM LACER HAND procedure are i n the results section. documented in this encounter Results [place] CHEMODENERV FACIAL TRIGEM NIDHI (11/04/2020 8:45 AM UPPER AND BOTTOM LACER HAND) Narrative MMODAL - 11/04/2020 8:45 AM UPPER AND BOTTOM LACER HAND Marina Winter M.D., M.P.H. ? 11/04/2020 ??9:08 AM Botox for chronic migraine Date/Time: 11/04/2020 8:45 AM Performed by: Marina Winter M.D., M.P .H. Authorized by: Marina Winter M.D., M. P.H. PROCEDURE DETAILS ?? Pre-procedure pain score: 2/10 Injection of: 100 Units onabotulinumtoxi nA 100 unit 50 Units onabotulinumtoxinA (cosmetic) 50 unit Needle gauge: 30 Needle length: 0.5 in Injection site details Global Compensation Director / Procerus muscle(s): 5 units into the left drywall hanger framer muscle, 5 units into the right drywall hanger framer muscle and 5 units into the procerus [...] libertarian. ?? Prior preventative medication trials: am itriptyline, [...] AM 50 Units injection 50 Units (BOTOX UPPER AND BOTTOM LACER HAND COSMETIC) 50 Units, injection, One-Time Injection, Starting on Anneliese 11/04/20 at 0845, For 1 dose onabotulinumtoxinA injection 100 Units Given 11/04/2020 8:45 AM UPPER AND BOTTOM LACER HAND 100 Units (BOTOX) 100 Units, injection, One-Time Injection, Starting on Anneliese 11/04/20 at 0845, For 1 dose documented in this encounter Additional Health Concerns Assessment Noted Time PHQ-9 Depression Total Score: 06/10/2020 1:20 PM CD T documented as of this encounter Care Teams Dye Weigher Relationship Specialty Start Date End Date Annemarie Montiel M.D. PCP - General 04/19/[address] [phone] documented as of this encounter
--- OUTSIDE RECORDS SUMMARY | 2022-07-25 09:10 | XMS_ITS | Encounter Summary ---
:1985 Author Organization [facility] Address [address] [place] [address] Care Team Providers Name Role Phone Annemarie Montiel M.D. Primary Care Provider [phone] Reason for Referral Outpatient (Routine) - Authorized Specialty Diagnoses / Procedures Referred By Contact Refer red To Contact Diagnoses Migraine Headache Marina Winter M.D., [facility] Procedures Botox for Chronic Migraine M.P.H. [address] [place] [phone] Referral ID Status Reason Start Date Expiration Date Visits V isits Requested Authorized [id number] Authorized 10/06/2020 10/06/2022 4 4 CE LIAISON Reason for Visit Reason Comments Migraine Ref. Dr. Junior [facility] Appointment Request (Routine) - Closed Specialty Diagnoses / Procedures Referred By Contact Refer red To Contact Neurology Referral ID Status Reason Start Date Expiration Date Visits Requ ested Visits Authorized [id number] Closed 09/09/2020 09/09/2021 1 1 Encounter Details Date Type Department Care Team Description 10/06/2020 Comprehensive Visit Department of Marina Winter Migrwm e Headache Neurology in [place], (Primary Dx) [place], [place] M.P.H. [address] [facility] [address] [place], [place] [phone] Social History Tobacco Use Types Packs/Day [...] How often do you attend yazidism or sikh Never 07/04/2019 services? 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/2018 10:53 AM POLICE LIAISON documented as of this encounter Last Filed Vital Signs Vital Sign Reading Time Taken Comments Blood Pressure 98/61 10/06/2020 9:17 AM POLICE LIAISON Pulse 82 10/06/2020 9:17 AM POLICE LIAISON Temperature - - Respiratory Rate - - Oxygen Saturation - - Inhaled Oxygen Concentration - - Weight 75 kg (165 lb 5.5 oz) 10/06/2020 9:17 AM POLICE LIAISON Height 162.5 cm (5' 3.98) 10/06/2020 9:17 AM POLICE LIAISON Body Mass Index 28.4 10/06/2020 9:17 AM POLICE LIAISON documented in this encounter Consult Notes Marina Winter M.D., M.P.H[facility] - 10/06/2020 9:30 AM CST SUBJECTIVE CHIEF COMPLAINT / REASON FOR VISIT Maria Alejandra Gomez is a 35 y.o. female who presents for evaluation of Migraine (Ref. Dr. Junior [facility]). 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 TONSILLECTOMY ??? TONSILLECTOMY AND [...] as needed (sleep)., Disp: , Rfl: ??? yhxpxtrnxtpv-Gs-madn-minerals (MULTIPLE VITAMIN, WOMENS) tablet, Take 1 tablet [...] Once a week Gets together: Never Attends sikh service: Never Active member of club or [...] Alert and oriented x 4. CRANIAL NERVES: drilling manager II-XII intact and symmetric. MOTOR: Full strength [...] was 50 minutes. Marina Winter M.D., M.P.H. CE LIAISON documented in this encounter Plan of Treatment Upcoming Encounters Date Type Specialty Care Team Description 08/17/2022 Procedure visit Neurology Marina Winter M.D., M[facility] [address] [place] [phone] (Wo rk) Scheduled Orders Name Type Priority Associated Diagnoses Order S chedule Botox for Chronic Procedures Routine Migraine Headache 4 Occ urrences starting Migraine 10/06/2020 unti l 10/06/2023, 2 c ompleted Scheduled Procedures Name Priority Associated Diagnoses Date/Time LIFT THIGH Excessive And Redundant Skin And Subcutaneous Tissue documented as of this encounter Results [place] CHEMODENERV FACIAL TRIGEM NIDHI (05/18/2022 1:53 PM [...] Needle length: 0.5 in Injection site details Wan Support Specialist / Procerus muscle(s): 5 units into the left power mule operator muscle, 5 units into the right power mule operator muscle and 5 units into the procerus [...] Code Phon e Number MMODAL MMODAL NA [place] CHEMODENERV FACIAL TRIGEM NIDHI (02/16/2022 1:47 PM [...] Needle length: 0.5 in Injection site details Wan Support Specialist / Procerus muscle(s): 5 units into the left power mule operator muscle, 5 units into the right power mule operator muscle and 5 units into the procerus [...] documented as of this encounter Care Teams Jacket Preparer Relationship Specialty Start Date End Date Annemarie Montiel M.D. PCP - General 04/19/17 [address] [place] [phone] documented as of this encounter
--- OUTSIDE RECORDS SUMMARY | 2022-07-25 09:10 | XMS_ITS | Encounter Summary ---
:1985 Author Organization [facility] Address [address] [place] [address] Care Team Providers Name Role Phone Annemarie Montiel M.D. Primary Care Provider [phone] Reason for Visit Reason Comments Medical Information Encounter Details Date Type Department Care Team Description 12/09/2020 Clinical Communication Department of Marina Winter Information Neurology in [place], [place] [address] [phone] Social History Tobacco Use Types Packs/Day Years [...] How often do you attend baptist or mosque Never 07/04/2019 services? 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 - 12/09/2020 2:09 PM TECTONOPHYSICIST Patient wanting to get Botox earlier than 02/02/21. Instructed patient that Botox is every three months. If given earlier than that insurance would not cover it. Patient will wait for her scheduled appt. In January. ONOPHYSICIST Telephone Encounter - Mónica Saleh L.P.N. - 12/09/2020 1:55 PM TECTONOPHYSICIST Dec has some return appointment slots. Please call her to schedule. I do not see what you are seeing on February 02? ONOPHYSICIST Telephone Encounter - Stiven Pinto - 12/09/2020 [...] Action Needed: Name of Medication (if relevant): ONOPHYSICIST documented in this encounter Plan of Treatment Upcoming Encounters Date Type Specialty Care Team Description 08/17/2022 Procedure visit Neurology Marina Winter M.D., M[facility]P.[facility] [address] [phone] (Wo ) Scheduled Procedures Name Priority Associated Diagnoses Date/Time LIFT THIGH Excessive And Redundant Skin And Subcutaneous Tissue documented as of this encounter Visit Diagnoses Not on filedocumented in this encounter Additional Health Concerns Assessment Noted Time PHQ-9 Depression Total Score: 12 06/10/2020 1:20 PM CD T documented as of this encounter Care Teams Facilities Planner Relationship Specialty Start Date End Date Annemarie Montiel M.D. PCP - General 04/19/[address] [phone] documented as of this encounter
--- OUTSIDE RECORDS SUMMARY | 2022-07-25 09:10 | XMS_ITS | Encounter Summary ---
:1985 Author Organization [facility] Address [address] [place] [address] Care Team Providers Name Role Phone Annemarie Montiel M.D. Primary Care Provider [phone] Encounter Details Date Type Department Care Team Description 04/07/2020 Clinical Communication Department of Maisha Song, Medicine, Porfirio Jaramillo [facility], in [facility] [address] [place], [place] [address] [place] [address] [place], [place] [phone] (Wo rk) [address] [phone] Social History Tobacco Use Types Packs/Day Years [...] 03/29/2020 relatives? How often do you attend yazdanism or yarsanism Never 07/04/2019 services? 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 - 04/14/2020 9:51 AM CDT Informed patient that form has been mailed. Telephone Encounter - Johny Ramos - 04/13/2020 9:28 AM CDT Patient calling in and is wondering if this paper work could be picked up at the clinic today? Please call the patient back [phone]. She is needing to get this paper [...] Nicki Montiel MD Department of Family Medicine [facility] documented in this encounter Plan of Treatment Upcoming Encounters Date Type Specialty Care Team Description 08/17/2022 Procedure visit Neurology Marina Winter M.D., [facility] [address] [place], [place] [phone] (Wo rk) Scheduled Procedures Name Priority Associated Diagnoses Date/Time LIFT THIGH Excessive And Redundant Skin And Subcutaneous Tissue documented as of this encounter Visit Diagnoses Not on filedocumented in this encounter Additional Health Concerns Assessment Noted Time PHQ-9 Depression Total Score: 15 2020 3:09 PM CD T documented as of this encounter Care Teams Returned Item Clerk Relationship Specialty Start Date End Date Annemarie Montiel M.D. PCP - General 04/19/[address] [address] documented as of this encounter
--- OUTSIDE RECORDS SUMMARY | 2022-07-25 09:10 | XMS_ITS | Encounter Summary ---
:1985 Author Organization [facility] Address [address] [place] [address] Care Team Providers Name Role Phone Annemarie Montiel M.D. Primary Care Provider [phone] Reason for Referral Outpatient (Routine) - Closed Specialty Diagnoses / Procedures Referred By Contact Refer red To Contact Diagnoses Migraine Headache Marina Winter M.D., [facility] Procedures Botox for Chronic Migraine [facility] [address] [phone] Referral ID Status Reason Start Date Expiration Date Visits Requ ested Visits Authorized [id number] Closed 02/02/2021 02/02/2022 1 1 Outpatient (Routine) - Closed Specialty Diagnoses / Procedures Referred By Contact Refer red To Contact Diagnoses Migraine Headache Marina Winter M.D., [facility] Procedures Botox for chronic migraine [facility] [address] [phone] Referral ID Status Reason Start Date Expiration Date Visits Requ ested Visits Authorized [id number] Closed 02/02/2021 02/02/2022 1 1 Reason for Visit Reason Comments Botulinum Toxin Injection Outpatient (Routine) - Closed Specialty Diagnoses / Procedures Referred By Contact Refer red To Contact Diagnoses Migraine Headache Marina Winter M.D., [facility] Procedures Botox for Chronic Migraine [facility] [address] [place] [address] Referral ID Status Reason Start Date Expiration Date Visits Requ ested Visits Authorized [id number] Closed 11/04/2020 11/04/2021 1 1 Encounter Details Date Type Department Care Team Description 02/02/2021 Procedure visit Department of Neurology Marina Winter, Migraine Headache in [facility] jeevan Jaramillo, M.P.H. [address] [facility] [address] [place] [phone] Social History Tobacco Use Types Packs/Day Years [...] How often do you attend restoration or yazidi Never 07/04/2019 services? 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 [address] [phone] (Wo rk) Scheduled Orders Name Type Priority Associated Diagnoses Order S chedule Botox for Chronic Procedures Routine Migraine Headache Expec heaven: 05/04/2021, Migraine Expires: 2021 Scheduled Procedures Name Priority Associated Diagnoses Date/Time LIFT THIGH Excessive And Redundant Skin And Subcutaneous Tissue documented as of this encounter Procedures Procedure Name Priority Date/Time Associated Comments Diagnosis [place] CHEMODENERV FACIAL Routine 02/02/2021 2:00 PM Migraine Head ache Results for this TRIGEM NIDHI CDT procedure are i n the results section. documented in this encounter Results [place] CHEMODENERV FACIAL TRIGEM NIDHI (02/02/2021 2:00 PM [...] Needle length: 0.5 in Injection site details Claim Analyst / Procerus muscle(s): 5 units into the left shaft repairer muscle, 5 units into the right shaft repairer muscle and 5 units into the procerus [...] documented as of this encounter Care Teams Black Top Raker Relationship Specialty Start Date End Date Annemarie Montiel M.D. PCP - General 04/19/172[address] [address] documented as of this encounter
--- OUTSIDE RECORDS SUMMARY | 2022-07-25 09:10 | XMS_ITS | Encounter Summary ---
:1985 Author Organization [facility] Address [address] [place] [address] Care Team Providers Name Role Phone Annemarie Montiel M.D. Primary Care Provider [phone] Reason for Visit Reason Comments Botulinum Toxin Injection Outpatient (Routine) - Authorized Specialty Diagnoses / Procedures Referred By Contact Refer red To Contact Diagnoses Migraine Headache Marina Winter M.D., [facility] Procedures Botox for Chronic Migraine M.P.[facility] [address] [address] Referral ID Status Reason Start Date Expiration Date Visits V isits Requested Authorized [id number] Authorized 10/06/2020 10/06/2022 4 4 Encounter Details Date Type Department Care Team Description 02/16/2022 Procedure visit Department of Neurology Marina Winter, Migraine Headache in [facility] jeevan Jaramillo, M.P.H. [address] [facility] [address] [place] [phone] Social History Tobacco Use Types Packs/Day Years [...] How often do you attend sikh or zoroastrianism Never 07/04/2019 services? 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 [address] [place] [phone] (Wo rk) Scheduled Procedures Name Priority Associated Diagnoses Date/Time LIFT THIGH Excessive And Redundant Skin And Subcutaneous Tissue documented as of this encounter Procedures Procedure Name Priority Date/Time Associated Comments Diagnosis [place] CHEMODENERV FACIAL Routine 02/16/2022 1:47 PM Migraine Head ache Results for this TRIGEM NIDHI CDT procedure are i n the results section. documented in this encounter Results [place] CHEMODENERV FACIAL TRIGEM NIDHI (02/16/2022 1:47 PM [...] Needle length: 0.5 in Injection site details Heavy Truck Technician / Procerus muscle(s): 5 units into the left staff sonographer muscle, 5 units into the right staff sonographer muscle and 5 units into the procerus [...] documented as of this encounter Care Teams Staffing Manager Relationship Specialty Start Date End Date Annemarie Montiel M.D. PCP - General 04/19/17 [address] [place] [address] documented as of this encounter
--- OUTSIDE RECORDS SUMMARY | 2022-07-25 09:10 | XMS_ITS | Encounter Summary ---
:1985 Author Organization [facility] Address [address] [place] [address] Care Team Providers Name Role Phone Annemarie Montiel M.D. Primary Care Provider [phone] Reason for Visit Appointment Request (Routine) - Closed Specialty Diagnoses / Procedures Referred By Contact Refer red To Contact Aesthetic Medicine Diagnoses Cosmetic Surgery For Unacceptable Appearance and Surgery Referral ID Status Reason Start Date Expiration Date Visits Requ ested Visits Authorized [id number] Closed 01/30/2022 01/30/2023 1 1 Encounter Details Date Type Department Care Team Description 04/11/2022 Comprehensive Visit Division of Plastic [facility]ancho Excessive And Surgery in , [facility], Redundant Skin And [place], [place] [facility] Subcutaneous Tissue [address] (Primary Dx) [place] [address] [phone] Social History Tobacco Use Types Packs/Day Years [...] How often do you attend judaism or shinto Never 07/04/2019 services? 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 [address] [place], [place] [phone] (Wo rk) Scheduled Procedures [...] documented as of this encounter Care Teams Dater Assembler Relationship Specialty Start Date End Date Annemarie Montiel M.D. PCP - General 04/19/[address] [place] [address] documented as of this encounter
--- OUTSIDE RECORDS SUMMARY | 2022-07-25 09:10 | XMS_ITS | Encounter Summary ---
:1985 Author Organization [facility] Address [address] [place] [address] Care Team Providers Name Role Phone Annemarie Montiel M.D. Primary Care Provider [phone] Reason for Referral Outpatient (Routine) - Closed Specialty Diagnoses / Procedures Referred By Contact Refer red To Contact Diagnoses Migraine Headache Marina Winter M.D., [facility] Procedures Botox for Chronic Migraine M[facility] [address] [phone] Referral ID Status Reason Start Date Expiration Date Visits Requ ested Visits Authorized [id number] Closed 05/05/2021 05/05/2022 1 1 Outpatient (Routine) - Closed Specialty Diagnoses / Procedures Referred By Contact Refer red To Contact Diagnoses Migraine Headache Marina Winter M.D., [facility] Procedures Botox for chronic migraine M[facility] [address] [phone] Referral ID Status Reason Start Date Expiration Date Visits Requ ested Visits Authorized [id number] Closed 05/05/2021 05/05/2022 1 1 Reason for Visit Reason Comments Botulinum Toxin Injection Outpatient (Routine) - Closed Specialty Diagnoses / Procedures Referred By Contact Refer red To Contact Diagnoses Migraine Headache Marina Winter M.D., [facility] Procedures Botox for Chronic Migraine [facility] [address] [place] [address] Referral ID Status Reason Start Date Expiration Date Visits Requ ested Visits Authorized [id number] Closed 02/02/2021 02/02/2022 1 1 Encounter Details Date Type Department Care Team Description 05/05/2021 Procedure visit Department of Neurology Marina Winter, Migraine Headache in [facility] jeevan Jaramillo, M.P.H. [address] [facility] [address] [place] [phone] Social History Tobacco Use Types Packs/Day Years [...] How often do you attend yazidism or protestant Never 07/04/2019 services? 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 Prior preventative medication trials: amitriptyline and topiramate Headache frequency Headache days per month: 5 days Severe headache days per month: 1 days POST-PROCEDURE DETAILS: Procedure completed successfully: yes Complications: no apparent complications documented in this encounter Plan of Treatment Upcoming Encounters Date Type Specialty Care Team Description 08/17/2022 Procedure visit Neurology Marina Winter M.D., [facility] [address] [place] [phone] (Wo rk) Scheduled Orders Name Type Priority Associated Diagnoses Order S chedule Botox for Chronic Procedures Routine Migraine Headache Expec heaven: 08/05/2021, Migraine Expires: 2021 Scheduled Procedures Name Priority Associated Diagnoses Date/Time LIFT THIGH Excessive And Redundant Skin And Subcutaneous Tissue documented as of this encounter Procedures Procedure Name Priority Date/Time Associated Comments Diagnosis MA CHEMODENERV FACIAL Routine 05/05/2021 3:00 PM Migraine Head ache Results for this TRIGEM NIDHI CDT procedure are i n the results section. documented in this encounter Results MA CHEMODENERV FACIAL TRIGEM NIDHI (05/05/2021 3:00 PM [...] Needle length: 0.5 in Injection site details Hazmat Tanker Driver / Procerus muscle(s): 5 units into the left senior application programmer muscle, 5 units into the right senior application programmer muscle and 5 units into the procerus [...] constitution party. ?? Prior preventative medication trials: am [...] as of this encounter Care Teams Director Group Sales Relationship Specialty Start Date End Date Annemarie Montiel M.D. PCP - General 04/19/[address] [phone] documented as of this encounter
--- OUTSIDE RECORDS SUMMARY | 2022-07-25 09:10 | XMS_ITS | Encounter Summary ---
:1985 Author Organization [facility] Address [address] [place] [address] Care Team Providers Name Role Phone Annemarie Montiel M.D. Primary Care Provider [phone] Reason for Referral Outpatient (Routine) - Closed Specialty Diagnoses / Procedures Referred By Contact Refer red To Contact Diagnoses Migraine Headache Marina Winter M.D., [facility] Procedures Botox for Chronic Migraine M.P.H. [address] [phone] Referral ID Status Reason Start Date Expiration Date Visits Requ ested Visits Authorized [id number] Closed 11/04/2020 11/04/2021 1 1 TRUCTION PLUMBER Encounter Details Date Type Department Care Team Description 11/04/2020 Orders Only Department of Neurology Marina Winter, [facility] jeevan Jaramillo, M.P.H. 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 [address] [place], [place] [phone] (Wo rk) Scheduled Orders [...] documented as of this encounter Care Teams Center Hole Reamer Relationship Specialty Start Date End Date Annemarie Montiel M.D. PCP - General 04/19/17 [address], [place] [address] documented as of this encounter
--- OUTSIDE RECORDS SUMMARY | 2022-07-25 09:10 | XMS_ITS | Encounter Summary ---
:1985 Author Organization [facility] Address [address] [place] [address] Care Team Providers Name Role Phone Annemarie Montiel M.D. Primary Care Provider [phone] Encounter Details Date Type Department Care Team Description 04/23/2020 Orders Only Department of Annemarie Song, Migraine Headache MedicinePorfirio M.D. (Primary Dx) Clinic, in [facility] [address] [place], [place] [address] [place] [address] [place], [place] [phone] (Wo rk) [address] [phone] Social History Tobacco Use Types Packs/Day Years [...] How often do you attend uatsdin or hinduism Never 07/04/2019 services? 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 [address] [place], [place] [phone] (Wo rk) Scheduled Procedures Name Priority Associated Diagnoses Date/Time LIFT THIGH Excessive And Redundant Skin And Subcutaneous Tissue documented as of this encounter Visit Diagnoses Diagnosis Migraine Headache - Primary documented in this encounter Additional Health Concerns Assessment Noted Time PHQ-9 Depression Total Score: 15 2020 3:09 PM CD T documented as of this encounter Care Teams Strip Cleaner Relationship Specialty Start Date End Date Annemarie Montiel M.D. PCP - General 04/19/[address] [phone] documented as of this encounter
--- OUTSIDE RECORDS SUMMARY | 2022-07-25 09:10 | XMS_ITS | Encounter Summary ---
:1985 Author Organization [facility] Address [address] [place] [address] Care Team Providers Name Role Phone Annemarie Montiel M.D. Primary Care Provider [phone] Encounter Details Date Type Department Care [...] How often do you attend zoroastrianism or rastafarian Never 07/04/2019 services? 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 [address] [phone] (Wo rk) Scheduled [...] Organization Address City/State/ZIP Code Phon e Number IINE IIMS NA documented in this encounter Visit Diagnoses Not on filedocumented in this encounter Additional Health Concerns Assessment Noted Time PHQ-9 Depression Total Score: 12 06/10/2020 1:20 PM CD T documented as of this encounter Care Teams Sustainability Coordinator Relationship Specialty Start Date End Date Annemarie Montiel M.D. PCP - General 04/19/[address], [place] [address] documented as of this encounter
--- OUTSIDE RECORDS SUMMARY | 2022-07-25 09:10 | XMS_ITS | Encounter Summary ---
:1985 Author Organization [facility] Address [address] [place] [address] Care Team Providers Name Role Phone Annemarie Montiel M.D. Primary Care Provider [phone] Reason for Visit Reason Comments Med Refill Encounter Details Date Type Department Care Team Description 07/05/2020 Refill Department of Yenifer Song M.D. Med Refill Medicine, [facility], [address] [place] [address] [address] [place] [address] [phone] Social History Tobacco Use Types Packs/Day Years [...] How often do you attend taoist or orthodox Never 07/04/2019 services? 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 [address] [place], [place] [phone] (Wo rk) Scheduled Procedures Name Priority Associated Diagnoses Date/Time LIFT THIGH Excessive And Redundant Skin And Subcutaneous Tissue documented as of this encounter Visit Diagnoses Diagnosis Migraine Headache documented in this encounter Additional Health Concerns Assessment Noted Time PHQ-9 Depression Total Score: 12 06/10/2020 1:20 PM CD T documented as of this encounter Care Teams Construction Tech Relationship Specialty Start Date End Date Annemarie Montiel M.D. PCP - General 04/19/[address] [phone] documented as of this encounter
--- OUTSIDE RECORDS SUMMARY | 2022-07-25 09:10 | XMS_ITS | Encounter Summary ---
:1985 Author Organization [facility] Address [address] [place] [address] Care Team Providers Name Role Phone Annemarie Montiel M.D. Primary Care Provider [phone] Reason for Visit Reason Comments Depression Pre-Rooming PHQ-9 Encounter Details Date Type Department Care Team Description 06/10/2020 Clinical Department of Annemarie Montiel Depression Communication Family MedicineNadia M.D. (Pre-Rooming [facility], [address] PHQ-9) in [facility] [address] [address] [place], [place] (Work) [address] Social History Tobacco Use [...] How often do you attend nondenominational or mu-ism Never 07/04/2019 services? 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/2018 10:53 AM LEGAL DOCUMENT SPECIALIST documented as of this encounter Miscellaneous [...] resources as she shared with this radio script writer there was a reduction in her EBT (SNAP) benefits. 1. School lunches are still being provided, 2. 8-20 [employer] will be in [place] to provide dairy, produce and meat. (no [...] visit Neurology Marina Winter M.D., M.P.[facility] [address] [phone] (Wo rk) Scheduled [...] documented as of this encounter Care Teams Bar Back Relationship Specialty Start Date End Date Annemarie Montiel M.D. PCP - General 04/19/[address] [phone] documented as of this encounter
--- OUTSIDE RECORDS SUMMARY | 2022-07-25 09:10 | XMS_ITS | Encounter Summary ---
:1985 Author Organization [facility] Address [address] [place] [address] Care Team Providers Name Role Phone Annemarie Montiel M.D. Primary Care Provider [phone] Reason for Visit Behavioral Health (Routine) - Closed Specialty Diagnoses / Procedures Referred By Contact Refer red To Contact Psychiatry / Diagnoses Anxiety Generalized Disorder Annemarie Montiel, [facility] Psychiatry and MRodrigoDRodrigo Psychology [address] [place] [address] Referral ID Status Reason Start Date Expiration Date Visits Requ ested Visits Authorized [id number] Closed 06/01/2020 06/01/2021 1 1 Encounter Details Date Type Department Care Team Description 06/10/2020 Comprehensive Visit Department of Ortiz, Anxiety Generalized Family Medicine, Hodan Zuniga, Disorder [facility], L.I.C[facility]S.[facility] in [place], [address] [place] [address] 300 [address] [place] [facility] [place] [address] [place], [place] [phone] [address] (Work) [phone] Social History Tobacco Use Types Packs/Day Years [...] How often do you attend nondenominational or anabaptism Never 07/04/2019 services? 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 - 06/10/2020 1:30 PM CDT Psychosocial Assessment SUBJECTIVE DEMOGRAPHIC INFORMATION Referral Source: Provider/Service Referral Name: Dr. Montiel Referral Reason: Coping, adjustment and support Person(s) present during interview: Patient Primary care clinic and provider: [facility] Porfirio / Annemarie Montiel M.D. Primary Language: Djiboutian Senior Integration Developer Services Used: No Legal Information: Legal Decision [...] Self Accompanied by/Relationship: Presented independently. Spirituality / Protestant / Culture: History: Education: High school (9-12/GED) Employment: Currently Employed Works at [employer] Psychosocial Risk Factors impacting the patient: Limited Social Support, Trauma/Stress Abuse, Neglect, Maltreatment, Trauma: Current: None reported. Past: None reported. ENVIRONMENTAL SUPPORTS Current Living Situation: Patient resides in [place] with her 4 children and the [...] Communication: Can write, Talks, Understands speaking, Understands Djiboutian It is anticipated that the patient will need assistance with None. ASSISTIVE DEVICES Patient has the following equipment: Eyeglasses Patient anticipates potentially needing the following additional equipment: None Transportation needs: Independent to drive SERVICES REQUESTED OPHTHALMIC TECH Formal and Informal Resources: 1. Family, friends, co workers, providers. FINANCES/INSURANCE Primary insurance: [facility] Secondary insurance: Income Information Does the Patient [...] father she and her children returned to [place]. Patient shared that her did not returnwith [...] Procedure visit Neurology Marina Winter M.D., M.P.H. [address] [phone] (Wo rk) Scheduled Procedures Name Priority Associated Diagnoses Date/Time LIFT THIGH Excessive And Redundant Skin And Subcutaneous Tissue documented as of this encounter Visit Diagnoses Diagnosis Anxiety Generalized Disorder documented in this encounter Additional Health Concerns Assessment Noted Time PHQ-9 Depression Total Score: 12 06/10/2020 1:20 PM CD T documented as of this encounter Care Teams Flat Grinder Operator Relationship Specialty Start Date End Date Clubb, Annemarie L, M.D. PCP - General 04/19/17 [address] [place] [address] documented as of this encounter
--- OUTSIDE RECORDS SUMMARY | 2022-07-25 09:10 | XMS_ITS | Encounter Summary ---
:1985 Author Organization [facility] Address [address] [place] [address] Care Team Providers Name Role Phone Annemarie Montiel M.D. Primary Care Provider [phone] Reason for Visit Reason Comments med review Outpatient (Routine) - Closed Specialty Diagnoses / Procedures Referred By Contact Refer red To Contact Video Medicine Diagnoses Anxiety Generalized Disorder Depression Major Recurrent (HCC) Annemarie Montiel M.D. [facility] [address] [place] [address] Referral ID Status Reason Start Date Expiration Date Visits Requ ested Visits Authorized [id number] Closed 03/22/2020 03/22/2021 1 1 Encounter Details Date Type Department Care Team Description 03/30/2020 Telemedicine Department of [facility] Annemarie Montiel, Anxiety Generalized Disorder; MedicinePorfirio M.D. Depression Major Recurrent (HCC) Clinic, in [facility] [address] [place], [place] [address] [facility] [address] [place], [place] [phone] (Wo rk) [address] [phone] Social History Tobacco Use Types Packs/Day Years [...] How often do you attend jain or pentecostal Never 07/04/2019 services? 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 in [facility] to the patient in her home. She [...] mouth at bedtime as needed (sleep). ??? mqaxmqfdgyqi-Nn-omsj-minerals (MULTIPLE VITAMIN, WOMENS) tablet Take 1 tablet [...] Nicki Montiel MD [facility] documented in this encounter Plan of Treatment Upcoming Encounters Date Type Specialty Care Team Description 08/17/2022 Procedure visit Neurology Marina Winter M.D., M.P.H. [address] [place], [place] [phone] (Wo rk) Scheduled Procedures Name Priority Associated Diagnoses Date/Time LIFT THIGH Excessive And Redundant Skin And Subcutaneous Tissue documented as of this encounter Visit Diagnoses Diagnosis Anxiety Generalized Disorder Depression Major Recurrent (HCC) documented in this encounter Additional Health Concerns Assessment Noted Time PHQ-9 Depression Total Score: 15 2020 3:09 PM CD T documented as of this encounter Care Teams Professor Of Forestry Relationship Specialty Start Date End Date Annemarie Montiel M.D. PCP - General 04/19/[place] [address] documented as of this encounter
--- OUTSIDE RECORDS SUMMARY | 2022-07-25 09:10 | XMS_ITS | Encounter Summary ---
:1985 Author Organization [facility] Address [address] [place] [address] Care Team Providers Name Role Phone Annemarie Montiel M.D. Primary Care Provider [phone] Encounter Details Date Type Department Care Team Description 09/08/2020 Clinical Communication Department of Maisha Song, Medicine, Porfirio Jaramillo [facility], in [facility] [address] [place], [place] [address] [place] [address] [place], [place] [phone] (Wo rk) [address] [phone] Social History Tobacco Use Types Packs/Day Years [...] How often do you attend lutheran or christian Never 07/04/2019 services? 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 - 09/08/2020 4:46 PM HOUSEKEEPER AND LAUNDRY ASSISTANT SUBJECTIVE CHIEF COMPLAINT / REASON FOR CALL No chief complaint on file. Information Discussed Spoke with patient and received verbal permission to fax copy of her last appointment to [facility]. Patient was informed that she need [...] yes The following references were used: none EKEEPER AND LAUNDRY ASSISTANT documented in this encounter Plan of Treatment Upcoming Encounters Date Type Specialty Care Team Description 08/17/2022 Procedure visit Neurology Marina Winter M.D., M.P.H. [address] [place] [phone] (Wo rk) Scheduled Procedures Name Priority Associated Diagnoses Date/Time LIFT THIGH Excessive And Redundant Skin And Subcutaneous Tissue documented as of this encounter Visit Diagnoses Not on filedocumented in this encounter Additional Health Concerns Assessment Noted Time PHQ-9 Depression Total Score: 12 06/10/2020 1:20 PM CD T documented as of this encounter Care Teams Casing Mixer Relationship Specialty Start Date End Date Annemarie Montiel M.D. PCP - General 04/19/17 [address] [place] [address] documented as of this encounter
--- OUTSIDE RECORDS SUMMARY | 2022-07-25 09:10 | XMS_ITS | Encounter Summary ---
:1985 Author Organization [facility] Address [address] [place] [address] Care Team Providers Name Role Phone Annemarie Montiel M.D. Primary Care Provider [phone] Encounter Details Date Type Department Care Team Description 07/06/2020 Orders Only Pharmacy Prior Auth RO Annemarie Montiel M.D. [phone] [address] [place], [place] [phone] (Wo rk) Social History [...] How often do you attend samaritan or mu-ism Never 07/04/2019 services? 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 [address] [place], [place] [phone] (Wo rk) Scheduled Procedures Name Priority Associated Diagnoses Date/Time LIFT THIGH Excessive And Redundant Skin And Subcutaneous Tissue documented as of this encounter Visit Diagnoses Not on filedocumented in this encounter Additional Health Concerns Assessment Noted Time PHQ-9 Depression Total Score: 12 06/10/2020 1:20 PM CD T documented as of this encounter Care Teams Fire Marshal Relationship Specialty Start Date End Date Annemarie Montiel M.D. PCP - General [address] [place] [address] documented as of this encounter
--- OUTSIDE RECORDS SUMMARY | 2022-07-25 09:10 | XMS_ITS | Encounter Summary ---
:1985 Author Organization [facility] Address [address] [place] [address] Care Team Providers Name Role Phone Annemarei Montiel M.D. Primary Care Provider [phone] Reason for Visit Reason Comments COVID Inquiry Encounter Details Date Type Department Care Team Description 06/04/2020 Clinical Communication Department of Annemarie Montiel Family MedicineNadia M.D. [facility], in [address] [place], [place] [address] [address] [place], [place] [phone] [address] (Work) [phone] Social History Tobacco Use Types Packs/Day Years [...] How often do you attend alevism or orthodox Never 07/04/2019 services? 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 1. Do [...] Neurology Marina Winter M.D., M.P.H. [address] [place], [place] [phone] (Wo rk) Scheduled Procedures Name Priority Associated Diagnoses Date/Time LIFT THIGH Excessive And Redundant Skin And Subcutaneous Tissue documented as of this encounter Visit Diagnoses Not on filedocumented in this encounter Additional Health Concerns Assessment Noted Time PHQ-9 Depression Total Score: 15 2020 3:09 PM CD T documented as of this encounter Care Teams Missile Pad Mechanic Relationship Specialty Start Date End Date Annemarie Montiel M.D. PCP - General 04/19/17 [address] [place] [address] documented as of this encounter
--- OUTSIDE RECORDS SUMMARY | 2022-07-25 09:11 | XMS_ITS | Encounter Summary ---
:1985 Author Organization [facility] Address [address] [place] [address] Care Team Providers Name Role Phone Annemarie Montiel M.D. Primary Care Provider [phone] Encounter Details Date Type Department Care [...] How often do you attend pentecostalism or sikhism Never 07/04/2019 services? Do you belong to [...] at Date Recorded Female 10/16/2018 10:53 AM RESIDENT CARE MANAGER RN documented as of this encounter Plan of Treatment Upcoming Encounters Date Type Specialty Care Team Description 08/17/2022 Procedure visit Neurology Marina Winter M.D., M.P.H. [address] [phone] (Wo rk) Scheduled Procedures Name Priority Associated Diagnoses Date/Time LIFT THIGH Excessive And Redundant Skin And Subcutaneous Tissue documented as of this encounter Procedures Procedure Name Priority Date/Time Associated Diagnosis Comme nts PLASTIC AND RECON Routine 12/24/2019 12:00 PM Res ults for this SURGERY IMAGE EXAM RESIDENT CARE MANAGER RN procedure are in the results section. documented in this encounter Results Abdomen Panniculectomy-Plastic And Recon Surgery Image Exam (12/24/2019 12:00 PM RESIDENT CARE MANAGER RN) Specimen (Source) Anatomical Collection Method Collection Time Re ceived Time Location / / Volume Laterality 12/24/2019 12:00 PM RESIDENT CARE MANAGER RN Narrative [facility] - 12/24/2019 3:48 PM RESIDENT CARE MANAGER RN This order has been created and auto-finalized [...] documented as of this encounter Care Teams Tuckpointer Cleaner Caulker Relationship Specialty Start Date End Date Annemarie Montiel M.D. PCP - General 04/19/[address] [place] [address] documented as of this encounter
--- OUTSIDE RECORDS SUMMARY | 2022-07-25 09:11 | XMS_ITS | Encounter Summary ---
:1985 Author Organization [facility] Address [address] [place] [address] Care Team Providers Name Role Phone Annemarie Montiel M.D. Primary Care Provider [phone] Encounter Details Date Type Department Care Team Description 11/20/2019 Orders Only Division of Plastic Surgery Jeffry Chew in [facility] jeevan Jaramillo [address] [place] [address] [place], [place] [phone] (Wo rk) Social History Tobacco Use Types [...] How often do you attend taoist or hindu Never 07/04/2019 services? 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 [address] [place], [place] [phone] (Wo rk) Scheduled Procedures Name Priority Associated Diagnoses Date/Time LIFT THIGH Excessive And Redundant Skin And Subcutaneous Tissue documented as of this encounter Visit Diagnoses Not on filedocumented in this encounter Additional Health Concerns Assessment Noted Time PHQ-9 Depression Total Score: 19 10/09/2019 11:[address] documented as of this encounter Care Teams Qc Chemist Relationship Specialty Start Date End Date Annemarie Montiel M.D. PCP - General 04/19/[address] [address] documented as of this encounter
--- OUTSIDE RECORDS SUMMARY | 2022-07-25 09:11 | XMS_ITS | Encounter Summary ---
:1985 Author Organization [facility] Address [address] [place] [address] Care Team Providers Name Role Phone Annemarie Montiel M.D. Primary Care Provider [phone] Encounter Details Date Type Department Care Team Description 11/06/2019 Clinical Communication Department of Maisha Song, Medicine, Porfirio Jaramillo [facility], in [facility] [address] [place], [place] [address] [place] [address] [place], [place] [phone] (Wo rk) [address] [phone] Social History Tobacco Use Types Packs/Day Years [...] How often do you attend mormon or yarsani Never 07/04/2019 services? 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 [address] [phone] (Wo rk) Scheduled Procedures Name Priority Associated Diagnoses Date/Time LIFT THIGH Excessive And Redundant Skin And Subcutaneous Tissue documented as of this encounter Visit Diagnoses Not on filedocumented in this encounter Additional Health Concerns Assessment Noted Time PHQ-9 Depression Total Score: 19 10/09/2019 11:[address] documented as of this encounter Care Teams Flexo Operator Relationship Specialty Start Date End Date Annemarie Montiel M.D. PCP - General 04/19/[address] [address] documented as of this encounter
--- OUTSIDE RECORDS SUMMARY | 2022-07-25 09:11 | XMS_ITS | Encounter Summary ---
:1985 Author Organization [facility] Address [address] [place] [address] Care Team Providers Name Role Phone Annemarie Montiel M.D. Primary Care Provider [phone] Reason for Visit Reason Onset Date Comments Medical Form 10/16/2019 Encounter Details Date Type Department Care Team Description 10/16/2019 Clinical Communication Department of Maisha Song Medical Form MedicinePorfirio M.D. [facility], in [facility] [address] [place], [place] [address] [place] [address] [place], [place] [phone] [address] (Work) [phone] Social History Tobacco Use Types Packs/Day Years [...] How often do you attend anabaptism or faith Never 07/04/2019 services? 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/2018 10:53 AM PHYSICIAN SURGEON documented as of this encounter Miscellaneous Notes Telephone Encounter - Annemarie Montiel M.D. - 10/28/2019 7:56 AM PHYSICIAN SURGEON Form completed and will route back to HIM today. Pt has been working, so I did increase workability to 20 hrs per week, she may do more if she feels able. Please have the patient sign the form(page 1) before we fax it or she can also pick it up if she prefers. Thank you. ICIAN SURGEON Telephone Encounter - Annemarie Montiel M.D. - 10/24/2019 6:33 AM PHYSICIAN SURGEON Noted. I will watch for the form to return from HIM ICIAN SURGEON Telephone Encounter - Oliva Wright C.MSandra - 10/21/2019 11:03 AM PHYSICIAN SURGEON Patient has been notified that we received the medical form and that it has been sent to HIM to address. ICIAN SURGEON Telephone Encounter - Oliva Wright C.MSandra - 10/21/2019 11:01 AM PHYSICIAN SURGEON Medical form was sent to HIM to address. Will let the patient know when completed. ICIAN SURGEON Telephone Encounter - Nicki Newman - 10/21/2019 10:55 AM CST Patient is calling in and is wondering about the status of the medical form she is needing. Please call patient back. ICIAN SURGEON Telephone Encounter - Nuris Cloud LRodrigoP.NRodrigo - 10/20/2019 11:34 AM PHYSICIAN SURGEON Medical opinion form in in Dr. Montiel's box to do her part. Patient needs to finish the rest before faxing. ICIAN SURGEON Telephone Encounter - Kaci Tinoco - 10/16/2019 8:40 AM CST Reason for Communication: Patient is calling in requesting an updated medical opinion form from Dr. Montiel. Current Can Nursing/Provider leave a detailed message: Action Needed: Please review and advise. Name of Medication (if relevant): ICIAN SURGEON documented in this encounter Plan of Treatment Upcoming Encounters Date Type Specialty Care Team Description 08/17/2022 Procedure visit Neurology Marina Winter M.D., M.P.H. [address] [place], [place] [phone] (Wo rk) Scheduled Procedures Name Priority Associated Diagnoses Date/Time LIFT THIGH Excessive And Redundant Skin And Subcutaneous Tissue documented as of this encounter Visit Diagnoses Not on filedocumented in this encounter Additional Health Concerns Assessment Noted Time PHQ-9 Depression Total Score: 19 10/09/2019 11:[address] documented as of this encounter Care Teams Director Of Guidance In [employer] Relationship Specialty Start Date End Date Annemarie Montiel M.D. PCP - General 04/19/17 [address], [place] [address] documented as of this encounter
--- OUTSIDE RECORDS SUMMARY | 2022-07-25 09:11 | XMS_ITS | Encounter Summary ---
:1985 Author Organization [facility] Address [address] [place] [address] Care Team Providers Name Role Phone Annemarie Montiel M.D. Primary Care Provider [phone] Encounter Details Date Type Department Care Team Description 11/26/2019 Clinical Communication Division of Plastic Liam white, Surgery in [place], Surendra Sparks.B.S. [place] [address] [facility] [address] [place] [address] [phone] Social History Tobacco Use Types Packs/Day Years [...] How often do you attend judaism or church Never 07/04/2019 services? 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 - 11/26/2019 2:45 PM FIELD FOREMAN SUBJECTIVE CHIEF COMPLAINT / REASON FOR CALL [...] following references were used: nursing clinical judgement D FOREMAN Telephone Encounter - Keisha Mir M.S.N., R.N. - 11/26/2019 2:23 PM FIELD FOREMAN msg left D FOREMAN Telephone Encounter - Sanam Day - 11/26/2019 8:55 AM CST This pt called and would like to schedule her surgery. Please call her back at . Thank you. D FOREMAN documented in this encounter Plan of Treatment Upcoming Encounters Date Type Specialty Care Team Description 08/17/2022 Procedure visit Neurology Marina Winter M.D., M.P.H. [address] [place] [phone] (Wo rk) Scheduled Procedures Name Priority Associated Diagnoses Date/Time LIFT THIGH Excessive And Redundant Skin And Subcutaneous Tissue documented as of this encounter Visit Diagnoses Not on filedocumented in this encounter Additional Health Concerns Assessment Noted Time PHQ-9 Depression Total Score: 19 10/09/2019 11:[address] documented as of this encounter Care Teams Sheet Manager Relationship Specialty Start Date End Date Annemarie Montiel M.D. PCP - General 04/19/17 [address] [facility] [place] [address] documented as of this encounter
--- OUTSIDE RECORDS SUMMARY | 2022-07-25 09:11 | XMS_ITS | Encounter Summary ---
:1985 Author Organization [facility] Address [address] [place] [address] Care Team Providers Name Role Phone Annemarie Montiel M.D. Primary Care Provider [phone] Reason for Referral MRI/CAT/PET Scan (Routine) - Closed Specialty Diagnoses / Procedures Referred By Contact Refer red To Contact Radiology Diagnoses [facility] Abdomen Pelvis with IV Contrast M.B.B.S. [address] [place] [address] [phone] Referral ID Status Reason Start Date Expiration Date Visits Requ ested Visits Authorized [id number] Closed 12/15/2019 12/14/2020 1 1 RVISOR EVAPORATOR Reason for Visit MRI/CAT/PET Scan (Routine) - Closed Specialty Diagnoses / Procedures Referred By Contact Refer red To Contact Radiology Diagnoses [facility] CT Abdomen Pelvis with IV Contrast M.B.B.S. [address] [place] [phone] Referral ID Status Reason Start Date Expiration Date Visits Requ ested Visits Authorized [id number] Closed 12/15/2019 12/14/2020 1 1 Encounter Details Date Type Department Care Team Description 12/15/2019 Hospital Encounter Department of Radiology, Donnie Oliveros [facility], [place] [address] [place] [address] [place] [phone] Social History Tobacco Use Types Packs/Day Years [...] How often do you attend episcopal or presybeterian Never 07/04/2019 services? 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/2018 10:53 AM SUPERVISOR EVAPORATOR documented as of this encounter Medications at [...] mouth 0 at bedtime as needed (sleep). gnlaljrqcsnu-Wb-tldf-min Take 1 tablet by 0 erals (MULTIPLE [...] Neurology Marina Winter M.D., M.P.H. [address] [place] [phone] (Wo rk) Scheduled Procedures Name Priority Associated Diagnoses Date/Time LIFT THIGH Excessive And Redundant Skin And Subcutaneous Tissue documented as of this encounter Procedures Procedure Name Priority Date/Time Associated Comments Diagnosis CT ABDOMEN PELVIS RAD - Routine 12/15/2019 4:11 Panniculitis Result s for this WITH IV CONTRAST (most inpatients PM SUPERVISOR EVAPORATOR procedu re are in and all the results outpatients) section. documented in this encounter Results CT Abdomen Pelvis with IV Contrast (12/15/2019 4:11 PM SUPERVISOR EVAPORATOR) Anatomical Region Laterality Modality Abdomen, Pelvis, Abdominal RST LOS, N/A Comp uted Tomography, Computed Abdominal ARZ LOS, Abdominal FLA LOS Manjeet ography Specimen (Source) Anatomical Collection Method Collection Time Re ceived Time Location / / Volume Laterality 12/16/2019 7:15 AM SUPERVISOR EVAPORATOR Impressions 12/16/2019 7:18 AM SUPERVISOR EVAPORATOR Tiny fat-containing umbilical hernia. Abdomen and pelvis otherwise negative. Narrative 12/16/2019 7:18 AM SUPERVISOR EVAPORATOR EXAM: ??CT ABDOMEN PELVIS WITH IV CONTRAST [...] iohexol (OMNIPAQUE) dilution Given 12/15/2019 4:05 PM SUPERVISOR EVAPORATOR 9,000 mg solution 9,000 mg iodine/1,000 mL water 9,000 mg, oral, Once in imaging, contrast, Starting on Sun12/15/19 at 1522, For 1 dose, Imaging Protocol Orders, Mix iohexol 300 (Omnipaque?? 300) 30 mL with 970 mL water for a total volume of 1,000 mLs. Patient to drink mixture in 40 minutes. iohexol 300 mg iodine/mL solution 1-200 mL Given 12/15/2019 4:06 PM SUPERVISOR EVAPORATOR 150 mL (OMNIPAQUE) 1-200 mL, intravenous, Once in imaging, contrast, Starting on Sun12/15/19 at 1522, For 1 dose, Imaging Protocol Orders, Dose per Radiant Medication Guidelines sodium chloride (PF) 0.9 % injection 1-1 00 mL Given 12/15/2019 4:07 PM SUPERVISOR EVAPORATOR 47 mL 1-100 mL, intravenous, Once, On Sun12/15/19 at 1530, For 1 dose, Imaging Protocol Orders documented in this encounter Additional Health Concerns Assessment Noted Time PHQ-9 Depression Total Score: 19 10/09/2019 11:[address] documented as of this encounter Care Teams Foil Cutter Relationship Specialty Start Date End Date Annemarie Montiel M.D. PCP - General 04/19/[address] [place] [phone] documented as of this encounter
--- OUTSIDE RECORDS SUMMARY | 2022-07-25 09:11 | XMS_ITS | Encounter Summary ---
:1985 Author Organization [facility] Address [address] [place] [address] Care Team Providers Name Role Phone Annemarie Montiel M.D. Primary Care Provider [phone] Encounter Details Date Type Department Care [...] How often do you attend presybeterian or alevism Never 07/04/2019 services? 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 10:53 AM GRIEVANCE COORDINATOR documented as of this encounter Plan of Treatment Upcoming Encounters Date Type Specialty Care Team Description 08/17/2022 Procedure visit Neurology Marina Winter M.D., M.P.H. [address] [phone] (Wo rk) Scheduled Procedures Name Priority Associated Diagnoses Date/Time LIFT THIGH Excessive And Redundant Skin And Subcutaneous Tissue documented as of this encounter Procedures Procedure Name Priority Date/Time Associated Diagnosis Comme nts PLASTIC AND RECON Routine 12/30/2019 12:00 PM Res ults for this SURGERY IMAGE EXAM GRIEVANCE COORDINATOR procedure are in the results section. documented in this encounter Results Breast Breast Reconstruction-Plastic And Recon Surgery Image Exam (12/30/2019 12:00 PM GRIEVANCE COORDINATOR) Specimen (Source) Anatomical Location Collection Method / Collectio n Time Received Time / Laterality Volume Narrative IIMS - 12/30/2019 4:09 PM GRIEVANCE COORDINATOR This order has been created and auto-finalized [...] documented as of this encounter Care Teams Shank Pinner Relationship Specialty Start Date End Date Annemarie Montiel M.D. PCP - General 04/19/17 [address] [place] [phone] documented as of this encounter
--- OUTSIDE RECORDS SUMMARY | 2022-07-25 09:11 | XMS_ITS | Encounter Summary ---
:1985 Author Organization [facility] Address [address] [place] [address] Care Team Providers Name Role Phone Annemarie Montiel M.D. Primary Care Provider [phone] Reason for Referral Outpatient (Routine) - Closed Specialty Diagnoses / Procedures Referred By Contact Refer red To Contact Plastic Surgery [facility] [address] [place] [phone] Referral ID Status Reason Start Date Expiration Date Visits Requ ested Visits Authorized [id number] Closed 12/12/2019 12/11/2020 1 1 GER OF ENGINEERING Encounter Details Date Type Department Care Team Description 12/12/2019 Orders Only Division of Plastic Surgery Ailin Mir, in [facility] jeevan Banks, R.N. [address] [place] [phone] Social History Tobacco Use Types Packs/Day [...] How often do you attend episcopalian or scientology Never 07/04/2019 services? 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 [address] [place], [place] [phone] (Wo rk) Scheduled Procedures [...] documented as of this encounter Care Teams Filing Writer Relationship Specialty Start Date End Date Annemarie Montiel M.D. PCP - General 04/19/17 [address] [place] [phone] documented as of this encounter
--- OUTSIDE RECORDS SUMMARY | 2022-07-25 09:11 | XMS_ITS | Encounter Summary ---
:1985 Author Organization [facility] Address [address] [place] [address] Care Team Providers Name Role Phone Annemarie Montiel M.D. Primary Care Provider [phone] Encounter Details Date Type Department Care [...] How often do you attend muslim or christianity Never 07/04/2019 services? 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 10:53 AM SFDC TECHNICAL ARCHITECT documented as of this encounter Plan of Treatment Upcoming Encounters Date Type Specialty Care Team Description 08/17/2022 Procedure visit Neurology Marina Winter M.D., M.P.H. [address] [phone] (Wo rk) Scheduled Procedures Name Priority Associated Diagnoses Date/Time LIFT THIGH Excessive And Redundant Skin And Subcutaneous Tissue documented as of this encounter Procedures Procedure Name Priority Date/Time Associated Diagnosis Comme nts PLASTIC AND RECON Routine 12/16/2019 12:00 PM Res ults for this SURGERY IMAGE EXAM SFDC TECHNICAL ARCHITECT procedure are in the results section. documented in this encounter Results Specimen-Plastic And Recon Surgery Image Exam (12/16/2019 12:00 PM SFDC TECHNICAL ARCHITECT) Specimen (Source) Anatomical Location Collection Method / Collectio n Time Received Time / Laterality Volume Narrative IIMS - 12/17/2019 11:09 AM SFDC TECHNICAL ARCHITECT This order has been created and auto-finalized [...] documented as of this encounter Care Teams Resource Specialist Relationship Specialty Start Date End Date Annemarie Montiel M.D. PCP - General 04/19/17 [address] [place] [phone] documented as of this encounter
--- OUTSIDE RECORDS SUMMARY | 2022-07-25 09:11 | XMS_ITS | Encounter Summary ---
:1985 Author Organization [facility] Address [address] [place] [address] Care Team Providers Name Role Phone Annemarie Montiel M.D. Primary Care Provider [phone] Reason for Visit Auth/Cert Specialty Diagnoses / Procedures Referred By Contact Refer red To Contact Diagnoses Panniculitis Bariatric surgery status Panniculitis [M79.3] Procedures ID EXCISN EXCESS SKIN/TISS ABD PANNICULECTOMY Referral ID Status Reason Start Date Expiration Date Visits Requ ested Visits Authorized [id number] 1 1 Encounter Details Date Type Department Care Team Description 12/16/2019 Anesthesia Event RST ROMB MAIN OR Harris Pop M.D. [address] [place] [phone] [id number] [facility] Luciano Reyes M.D. [address] [place] [phone] [place] [phone] Anesthesia Record Procedure Summary [...] h andoff to the receiving staff during [facility] we 1. Identified the patient 2. [...] i, Scott T, Time: 1103 (created via SERVICE ASSOCIATE R.N. procedure documentation); Mask Ventilation: Easy mask; [...] 8 by Abdomen; Bilateral; [facility] (Removed by Bashir Sandra background completion Automated Batch Job utility); 1418 (Removed by background completion utility) Closed/Suction Drain 12/16/19; 1257; 1; 12/16/19 1257 by 0 1144 by Right, Anterior, Brad Boyd, Nidia Noel R, Lateral; Thigh; Bulb; R.N. L.P.N. 15 Fr.; Criteria for drain removal met (RETIRED) Incision 12/16/19; 1354; Other 12/16/19 1354 by 1418 by (Comment); Umbilicus; Brad Boyd, [facility] 07/26/21 (Removed by Bashir Sandra background completion [...] How often do you attend worship or catholic Never 07/04/2019 services? Do you belong to any clubs or organizations such as No 07/04/2019 worship groups, unions, fraConsortiEX or athletic groups, or school groups? 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 - 12/16/2019 2:54 PM CST Patient: Maria Alejandra Gomez Procedure Summary Date: 12/16/19 Room / Location: [place] [address] ROMB 01 1575 / [facility] in [place], [place] Anesthesia Start: 1044 Anesthesia Stop: 1424 [...] by: Cassius Mosher M.D. 12/16/19 2:55 PM NUTRITION EDUCATOR ITION EDUCATOR Anesthesia Procedure Notes - Hipolito Jones R.N., ARELYN - 12/16/2019 12:43 PM CSTAssociated Order(s): Airway Airway Date/Time: 12/16/2019 11:04 AM Performed by: Cass Fuentes APRN, SERVICE ASSOCIATE Authorized by: Harris Pop M.D. Patient location [...] Procedure outcome: successful Airway event: no complications ITION EDUCATOR Anesthesia Preprocedure Evaluation - Harris Pop M.D. - 12/16/2019 10:59 AM CST Preprocedure Anesthesia & H&P Assessment Procedure Summary Anesthesia Start Date/Time: 12/16/19 1044 Procedure: PANNICULECTOMY, Possible Lily de lis. (N/A ) Diagnosis: Panniculitis [M79.3] Pre-op diagnosis: Panniculitis [M79.3]. Location: [address] 1575 / [facility] in [place], [place] Provider: Clare Deleon M.B.B.S. Pertinent components [...] with patient /legal guardian or through an imaging engineer. The use of blood products not discussed ITION EDUCATOR documented in this encounter Plan of Treatment Upcoming Encounters Date Type Specialty Care Team Description 08/17/2022 Procedure visit Neurology Marina Winter M.D., M.P.H. [address] [place] [phone] (Wo rk) Scheduled Procedures Name Priority Associated Diagnoses Date/Time LIFT THIGH Excessive And Redundant Skin And Subcutaneous Tissue documented as of this encounter Procedures Procedure Name Priority Date/Time Associated Comments Diagnosis LDA ANE ENDOTRACHEAL Routine 12/16/2019 12:43 Res ults for this AIRWAY PM NUTRITION EDUCATOR procedure are i n the results section. documented in this encounter Results LDA ANE ENDOTRACHEAL AIRWAY (12/16/2019 12:43 PM NUTRITION EDUCATOR) Narrative Hipolito Jones R.N., CCRN - 0 12:43 PM NUTRITION EDUCATOR Hipolito Jones R.N., CCRN ? 12/16/2019 12:57 [...] injection 2,000 mg Given 12/16/2019 11:13 AM NUTRITION EDUCATOR 2 g (ANCEF) 2,000 mg (rounded from [...] dexamethasone injection (DECADRON) Given 12/16/2019 11:18 AM NUTRITION EDUCATOR 4 mg As needed, Starting on Sun12/16/19 at 1118, Anesthesia Intra-op droperidoL injection (INAPSINE) Given 12/16/2019 1:26 PM NUTRITION EDUCATOR 0.625 mg intravenous, As needed, Starting on Sun12/16/19 at 1326, Anesthesia Intra-op ePHEDrine (PF) injection Given 12/16/2019 1:53 PM NUTRITION EDUCATOR 5 mg intravenous, As needed, Starting on Sun12/16/19 at 1122, Anesthesia Intra-op Given 12/16/2019 1:34 PM NUTRITION EDUCATOR 5 mg Given 12/16/2019 1:22 PM NUTRITION EDUCATOR 5 mg fentaNYL injection (SUBLIMAZE) Given 12/16/2019 2:11 PM NUTRITION EDUCATOR 50 mcg intravenous, As needed, Starting on Sun12/16/19 at 1113, Anesthesia Intra-op Given 12/16/2019 11:42 AM NUTRITION EDUCATOR 50 mcg Given 12/16/2019 11:13 AM NUTRITION EDUCATOR 50 mcg glycopyrrolate injection (ROBINUL) Given 12/16/2019 11:19 AM NUTRITION EDUCATOR 0.2 mg intravenous, As needed, Starting on Sun12/16/19 at 1119, Anesthesia Intra-op HYDROmorphone (PF) injection (DILAUDID) Given 12/16/2019 2:11 PM NUTRITION EDUCATOR 0.4 mg As needed, Starting on Sun12/16/19 at 1242, Anesthesia Intra-op Given 12/16/2019 1:08 PM NUTRITION EDUCATOR 0.2 mg Given 12/16/2019 12:42 PM NUTRITION EDUCATOR 0.4 mg ketamine injection (KETALAR) Given 12/16/2019 11:28 AM NUTRITION EDUCATOR 20 mg As needed, Starting on Sun12/16/19 at 1128, Anesthesia Intra-op lactated ringers New Bag 12/16/2019 12:25 PM NUTRITION EDUCATOR intravenous, Continuous Infusion: Per Instructions PRN, Starting on Sun12/16/19 at 1046, Anesthesia Intra-op New Bag 12/16/2019 10:46 AM NUTRITION EDUCATOR lidocaine (PF) (cardiac) injection Given 12/16/2019 11:00 AM NUTRITION EDUCATOR 60 mg intravenous, As needed, Starting on Sun12/16/19 at 1100, Anesthesia Intra-op ondansetron (PF) injection (ZOFRAN) Given 12/16/2019 1:26 PM NUTRITION EDUCATOR 4 mg intravenous, As needed, Starting on Sun12/16/19 at 1326, Anesthesia Intra-op phenylephrine injection Given 12/16/2019 1:22 PM NUTRITION EDUCATOR 50 mcg intravenous, As needed, Starting on Sun12/16/19 at 1119, Anesthesia Intra-op Given 12/16/2019 12:53 PM NUTRITION EDUCATOR 50 mcg Given 12/16/2019 12:50 PM NUTRITION EDUCATOR 50 mcg propofol 10 mg/mL infusion Rate/Dose 12/16/2019 1:28 30 mcg/kg/min 1 3.4 mL/hr (DIPRIVAN) Change PM NUTRITION EDUCATOR intravenous, Continuous Infusion: Per Instructions PRN, Starting on Sun12/16/19 at 1104, Anesthesia Intra-op Rate/Dose Change 12/16/2019 12:47 PM NUTRITION EDUCATOR 50 mcg/kg/min 22.4 mL/hr Rate/Dose Change 12/16/2019 12:38 PM NUTRITION EDUCATOR 75 mcg/kg/min 33.5 mL/hr propofoL injection (DIPRIVAN) Given 12/16/2019 11:01 AM NUTRITION EDUCATOR 75 mg intravenous, As needed, Starting on Sun12/16/19 at 1100, Anesthesia Intra-op Given 12/16/2019 11:00 AM NUTRITION EDUCATOR 150 mg sugammadex injection (BRIDION) Given 12/16/2019 1:39 PM NUTRITION EDUCATOR 150 mg As needed, Starting on Sun12/16/19 at 1339, Anesthesia Intra-op documented in this encounter Additional Health Concerns Assessment Noted Time PHQ-9 Depression Total Score: 19 10/09/2019 11:[address] documented as of this encounter Care Teams Landscape Crew Leader Relationship Specialty Start Date End Date Annemarie Montiel M.D. PCP - General 04/19/17 [address] [place] [phone] documented as of this encounter
--- OUTSIDE RECORDS SUMMARY | 2022-07-25 09:11 | XMS_ITS | Encounter Summary ---
:1985 Author Organization [facility] Address [address] [place] [address] Care Team Providers Name Role Phone Annemarie Montiel M.D. Primary Care Provider [phone] Encounter Details Date Type Department Care [...] How often do you attend sabianist or mormon Never 07/04/2019 services? 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 [address] [phone] (Wo rk) Scheduled Procedures Name Priority Associated Diagnoses Date/Time LIFT THIGH Excessive And Redundant Skin And Subcutaneous Tissue documented as of this encounter Procedures Procedure Name Priority Date/Time Associated Diagnosis Comme nts PLASTIC AND RECON Routine 11/07/2019 11:36 AM Res ults for this SURGERY IMAGE EXAM INSOLE TAPE STITCHER UCO procedure are in the results section. documented in this encounter Results Entire Body Abdominoplasty-Plastic And Recon Surgery Image Exam (11/07/2019 11:36 AM INSOLE TAPE STITCHER UCO) Specimen (Source) Anatomical Collection Method Collection Time Re ceived Time Location / / Volume Laterality 11/07/2019 12:00 PM INSOLE TAPE STITCHER UCO Narrative IIMS - 11/07/2019 11:36 AM INSOLE TAPE STITCHER UCO This order has been created and auto-finalized [...] documented as of this encounter Care Teams International Bank Manager Relationship Specialty Start Date End Date Annemarie Montiel M.D. PCP - General 04/19/[address] [place] [phone] documented as of this encounter
--- OUTSIDE RECORDS SUMMARY | 2022-07-25 09:11 | XMS_ITS | Encounter Summary ---
:1985 Author Organization [facility] Address [address] [place] [address] Care Team Providers Name Role Phone Annemarie Montiel M.D. Primary Care Provider [phone] Reason for Visit Outpatient (Routine) - Closed Specialty Diagnoses / Procedures Referred By Contact Refer red To Contact Plastic Surgery Diagnoses Surgery Bariatric Status Post Panniculitis Annemarie Montiel M.D. [facility] [address] [place] [phone] Referral ID Status Reason Start Date Expiration Date Visits Requ ested Visits Authorized [id number] Closed 10/09/2019 10/08/2020 1 1 Encounter Details Date Type Department Care Team Description 11/07/2019 Comprehensive Visit Division of Plastic [place] Surgery Bariatric Status Post; Surgery in , [place], Panniculitis [place], [place] M.B.B.S. [address] [facility] [address] [place] [address] [phone] Social History Tobacco Use Types Packs/Day Years [...] How often do you attend rastafarian or tenriism Never 07/04/2019 services? 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 She has tried wcdm-rla-uyvkefm yeast topical medications, but these are not [...] time. Questions answered. Seen with Dr. Deleon. VANCE AND APPEALS SPECIALIST documented in this encounter Plan of Treatment Upcoming Encounters Date Type Specialty Care Team Description 08/17/2022 Procedure visit Neurology Marina Winter M.D., M.P.H. [address] [place] [phone] (Wo rk) Scheduled Procedures Name Priority Associated Diagnoses Date/Time LIFT THIGH Excessive And Redundant Skin And Subcutaneous Tissue documented as of this encounter Visit Diagnoses Diagnosis Surgery Bariatric Status Post Panniculitis documented in this encounter Additional Health Concerns Assessment Noted Time PHQ-9 Depression Total Score: 19 10/09/2019 11:[address] documented as of this encounter Care Teams Insurance Producer Relationship Specialty Start Date End Date Annemarie Montiel M.D. PCP - General 04/19/17 [address] [place] [phone] documented as of this encounter
--- OUTSIDE RECORDS SUMMARY | 2022-07-25 09:11 | XMS_ITS | Encounter Summary ---
:1985 Author Organization [facility] Address [address] [place] [address] Care Team Providers Name Role Phone Annemarie Montiel M.D. Primary Care Provider [phone] Reason for Visit Appointment Request (Routine) - Closed Specialty Diagnoses / Procedures Referred By Contact Refer red To Contact Plastic Surgery Diagnoses Follow Up Examination Postoperative Visit Referral ID Status Reason Start Date Expiration Date Visits Requ ested Visits Authorized [id number] Closed 12/23/2019 12/22/2020 1 1 Encounter Details Date Type Department Care Team Description 12/24/2019 Office Visit Division of Plastic [place], Follow U p Examination Surgery in [place], Melanie, TEST SKEIN WINDER, Posto perative Visit [place] C.N.P., D.N.P. (Primary Dx) [address] [facility] [address] [place] [phone] [phone] Social History Tobacco Use Types Packs/Day Years [...] How often do you attend druze or mormon Never 07/04/2019 services? 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 10:53 AM KILN OPERATOR documented as of this encounter Progress Notes Melanie Cote APRN, C.N.P., D.N.P. - 12/24/2019 11:00 AM CST SUBJECTIVE CHIEF COMPLAINT / REASON FOR VISIT Service of Dr. Deleon ([phone]) Maria Alejandra Gomez is a 34 y.o. [...] need to push that appointment out further. OPERATOR documented in this encounter Plan of Treatment Upcoming Encounters Date Type Specialty Care Team Description 08/17/2022 Procedure visit Neurology Marina Winter M.D., M.P.H. [address], [place] [phone] (Wo rk) Scheduled Procedures [...] documented as of this encounter Care Teams Candle Molder Relationship Specialty Start Date End Date Annemarie Montiel M.D. PCP - General 04/19/17 [address] [place] [phone] documented as of this encounter
--- OUTSIDE RECORDS SUMMARY | 2022-07-25 09:11 | XMS_ITS | Encounter Summary ---
:1985 Author Organization [facility] Address [address] [place] [address] Care Team Providers Name Role Phone Annemarie Montiel M.D. Primary Care Provider [phone] Reason for Visit Auth/Cert Specialty Diagnoses / Procedures Referred By Contact Refer red To Contact Diagnoses Panniculitis Bariatric surgery status Panniculitis [M79.3] Procedures NE EXCISN EXCESS SKIN/TISS ABD PANNICULECTOMY Referral ID Status Reason Start Date Expiration Date Visits Requ ested Visits Authorized [id number] 1 1 Encounter Details Date Type Department Care Team Description 12/16/2019 Surgery RST ROMB MAIN OR Pancho, PANNICULECTOMY, Possible [address] [facility] [place] [address] [phone] [place] [address] [place] [phone] Social History Tobacco Use Types Packs/Day Years [...] 03/29/2020 relatives? How often do you attend restorationism or mandaeism Never 07/04/2019 services? 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 documented as of this encounter Last Filed Vital Signs Vital Sign Reading Time Taken Comments Blood Pressure 117/66 12/16/2019 2:30 PM HOOP COILING MACHINE OPERATOR Pulse 92 12/16/2019 2:30 PM HOOP COILING MACHINE OPERATOR Temperature 36.5 ??C (97.7 ??F) 12/16/2019 2:30 PM HOOP COILING MACHINE OPERATOR Respiratory Rate 21 12/16/2019 2:30 PM HOOP COILING MACHINE OPERATOR Oxygen Saturation 100% 12/16/2019 2:30 PM HOOP COILING MACHINE OPERATOR Inhaled Oxygen Concentration - - Weight 74.5 kg (164 lb 3.9 oz) 12/16/2019 8:35 AM HOOP COILING MACHINE OPERATOR Height 163.5 cm (5' 4.37) 12/16/2019 8:35 AM HOOP COILING MACHINE OPERATOR Body Mass Index 27.87 12/16/2019 8:35 AM HOOP COILING MACHINE OPERATOR documented in this encounter Discharge Summaries Lidia Irby Lexy, ÁNGEL, C.N.P. - 12/17/2019 8:46 AM CST DISCHARGE SUMMARY BRIEF OVERVIEW Discharge Provider: Clare Deleon M.B.B.SRodrigo Primary Care Providers: Annemarie Montiel M.D. (General) [address] [address] Primary Care Provider Primary Care Provider Admission [...] control your pain you may transition to lwty-dmy-xcenaxd Tylenol for pain relief. Do not take [...] otherwise. Please feel free to call the oracle wms consultant surgeon's office for details if you do not have these. Please check your portal or call the scheduling office for information regarding your appointment. CONTACT INFORMATION ?? - If you have questions about your appointment schedule, please call [phone]. - During evening or weekend hours, you may contact a member of the Plastic Surgery team by calling the [facility] router operator at [phone] and ask to speak with the Plastic Surgery resident continuous improvement facilitator for emergencies. If you have questions about your appointment schedule and you are a hand patient, please call [phone] Sunday through Sunday, 8:00 - 4:30 PM, otherwise call [phone]. For any questions or concerns regarding your care or post-operative instructions, please call , Sunday through Sunday, 8:00 - 4:30 PM. If you experience an urgent issue related to your surgery outside of business hours, please contact the [facility] router operator at and ask to speak with [...] were provided to the patient and caregiver(s). COILING MACHINE OPERATOR documented in this encounter Discharge Instructions AttachmentsThe following attachments cannot be sent through Care Everywhere. Ondansetron (By mouth, Into the mouth) (Tuvaluan)Laxative, Stimulant Combination (By mouth) (Tuvaluan)Oxycodone, Rapid Release (By mouth) (Tuvaluan)documented in this encounter Medications at Time of [...] mouth 0 at bedtime as needed (sleep). limoqocckhju-Mw-pdbj-coroner/medical examiner Take 1 tablet by 0 als (MULTIPLE VITAMIN, mouth daily. WOMENS) tablet valACYclovir (VALTREX) TAKE ONE TABLET BY 15 tablet 1 03/26 1000 mg tablet MOUTH ONCE DAILY FOR 5 DAYS busPIRone (BUSPAR) 15 mg Take 1-2 tablets 120 tablet 10/0903/30/2020 tabletIndications: Anxiety (15-30 mg total) Generalized Disorder by mouth 2 (two) times a day. acetaminophen (TYLENOL) Take 2 tablets 100 tablet [...] 12/15/2020 tablet mg total) by mouth daily. PARoxetine (PAXIL) 40 mg Take 1.5 tablets [...] Disposition: DC 12/17 Follow up: 12/30 [place] [id number] COILING MACHINE OPERATOR documented in this encounter Nursing Notes Makenna Squires R.N. - 12/17/2019 9:47 AM CST Pt discharged to [facility] this morning. Medications picked up at outpatient pharmacy. IVs removed. All discharge education completed and all questions answered. Vital signs stable. BP 101/58 (BP Location: Left arm;Upper, Patient Position: Sitting) Pulse 78 Temp 37 ??C (Oral) Resp 16 Ht 163.5 cm Wt 74.5 kg LMP 06/08/2017 SpO2 98% No BMI 27.87 kg/m?? Electronically signed by: Makenna Squires R.N. 12/17/19 10:06 AM HOOP COILING MACHINE OPERATOR COILING MACHINE OPERATOR Makenna Squires R.N. - 12/17/2019 9:46 AM CST Shift Goals: Clinical Goals for the Shift: Prepare for DC Identify possible barriers to meeting goals/advancing plan of care: None End of Shift Summary: VSS. Ambulating SBA/independently. Voiding spontaneously. Pt safe and free of falls on shift. Planning to DC to [facility] today. Electronically signed by: Makenna Squires R.N. 12/17/19 9:47 AM HOOP COILING MACHINE OPERATOR COILING MACHINE OPERATOR Carter Betts R.N. - 12/17/2019 6:45 AM CST Shift Goals: Clinical Goals for the Shift: Pain Control Identify possible barriers to meeting goals/advancing plan of care: not alerting staff of pain End of Shift Summary: Pt. Was able to ambulate at the beginning of the shift with standby assistancebefore going to bed. Pt. Was vitally stable overnight and pain was easily controlled. COILING MACHINE OPERATOR documented in this encounter OR Notes Op Note - Jose Rafael Chew M.D. - 12/16/2019 11:30 AM CST FULL OP NOTE Procedure(s): PANNICULECTOMY, Possible Lily de lis. Surgeon(s) and Role: * Clare Deleon M.B.B.SRodrigo - Primary * Jose Rafael Chew M.D. - Senior Military Analyst * Sulma Lindsay M.B.BShan, M.S. - Other Fish Cleaner Machine Tender Anesthesia Type General Pre-operative Diagnosis Panniculitis Post-operative [...] horizontal-only incision versus horizontal and vertical component atvij-xy-oyj incision. We started with the lower incision, [...] interrupted 4-0 Monocryl. We then placed two 15-Zimbabwean BIANCA drains coming out laterally on her lateral thighs region via trocar and these were secured using3-0 nylon sutures. Prior to final closure we noticed, as noted on the previous CT scan, a tiny fat hernia superior to the umbilicus. This was fixed using interrupted cubkup-ky-ayntn 2-0 PDS. Two sutures were placed, and [...] Fr. Size (mm): Size (In): Drain [place] Size (mL): 100 mL Number of Sutures Placed: Removal Reason: Closed/Suction Drain 1 Left;Anterior;Lateral Leg Bulb 15 Fr. (Active) 12/16/19 1301 Leg Placed by External Staff?: Placed by: Dr Deleon Tube Number: 1 Orientation: Left;Anterior;Lateral Drain Tube Type: Bulb Size (Fr): 15 Fr. Size (mm): Size (In): Drain [place] Size (mL): 100 mL Number of Sutures [...] Loss None Implants None Mo Ella Chew COILING MACHINE OPERATOR documented in this encounter Miscellaneous Notes Hospital [...] the patient was discharged from the hospital. COILING MACHINE OPERATOR documented in this encounter Plan of Treatment Upcoming Encounters Date Type Specialty Care Team Description 08/17/2022 Procedure visit Neurology Marina Winter M.D., M.P.H. [address] [place], [place] [phone] (Wo rk) Scheduled Procedures Name Priority Associated Diagnoses Date/Time LIFT THIGH Excessive And Redundant Skin And Subcutaneous Tissue documented as of this encounter Procedures Procedure Name Priority Date/Time Associated Diagnosis Comme nts CBC WITHOUT Routine 12/17/2019 4:51 Results for this DIFFERENTIAL, B AM HOOP COILING MACHINE OPERATOR procedure ar e in the results section. BASIC METABOLIC PANEL, Routine 12/17/2019 4:51 Re sults for this S/P AM HOOP COILING MACHINE OPERATOR procedure are i n the results section. ADULT OXYGEN THERAPY Routine 12/16/2019 2:23 PM HOOP COILING MACHINE OPERATOR SURGICAL PATHOLOGY, Routine 12/16/2019 11:55 Panniculitis Resu lts for this [facility] AM HOOP COILING MACHINE OPERATOR procedure are i n the results section. PANNICULECTOMY 12/16/2019 10:24 Panniculitis AM HOOP COILING MACHINE OPERATOR documented in this encounter Results (ABNORMAL) Basic Metabolic Panel (12/17/2019 4:51 AM HOOP COILING MACHINE OPERATOR) P athologist Signature Potassium, S 3.9 3.6 - 5.2 12/17/2019 DTL mmol/L 6:00 AM HOOP COILING MACHINE OPERATOR Sodium, S 140 135 - 145 12/17/2019 DTL mmol/L 6:00 AM HOOP COILING MACHINE OPERATOR Chloride, S 102 98 - 107 12/17/2019 DTL mmol/L 6:00 AM HOOP COILING MACHINE OPERATOR Bicarbonate, S 24 22 - 29 12/17/2019 DTL mmol/L 6:00 AM HOOP COILING MACHINE OPERATOR Anion Gap 14 7 - 15 12/17/2019 DTL 6:00 AM HOOP COILING MACHINE OPERATOR BUN (Blood Urea 9 6 - 21 12/17/2019 DTL Nitrogen), S mg/dL 6:00 AM HOOP COILING MACHINE OPERATOR Creatinine 0.63 0.59 - 12/17/2019 DTL 1.04 mg/dL 6:00 AM HOOP COILING MACHINE OPERATOR eGFR-Non >90 >=60 12/17/2019 DTL Black/ mL/min/BSA 6:00 AM HOOP COILING MACHINE OPERATOR Kittitian Comment: ----ADDITIONAL INFORMATION---- Estimated GFR calculated using the 2009 CKD_EPI creatinine equation. eGFR-Black/ >90 >=60 mL/min/BSA 2019 6:00 AM HOOP COILING MACHINE OPERATOR DTL Comment: ----ADDITIONAL INFORMATION---- Estimated GFR calculated using the 2009 CKD_EPI creatinine equation. Calcium, Total, S 8.5 (L) 8.6 - 10.0 mg/dL 12/17/2019 6:00 AM HOOP COILING MACHINE OPERATOR DTL Glucose, S 81 70 - 140 mg/dL 12/17/2019 6:00 AM HOOP COILING MACHINE OPERATOR D TL Specimen Anatomical Collection Method Collection Time Receive d Time (Source) Location / / Volume Laterality Blood (Blood, 12/17/2019 4:51 AM 12/17/19 5:02 Venous) HOOP COILING MACHINE OPERATOR AM HOOP COILING MACHINE OPERATOR Clare Murphy LAB BLOOD ADD-ON Performing Organization Address [facility] Phon e Number [facility] - [address] [place], [place] [address] [facility] [place] [address] Laboratories-[address] (ABNORMAL) CBC without Differential (12/17/2019 4:51 AM HOOP COILING MACHINE OPERATOR) [facility] gist Method Time Signature Hemoglobin 11.5 (L) 11.6 - 12/17/2019 DTL 15.0 g/dL 5:07 AM HOOP COILING MACHINE OPERATOR Hematocrit 33.7 (L) 35.5 - 12/17/2019 DTL 44.9 % 5:07 AM HOOP COILING MACHINE OPERATOR Erythrocytes 3.78 (L) 3.92 - 12/17/2019 DTL 5.13 5:07 AM HOOP COILING MACHINE OPERATOR x10(12)/L MCV 89.2 78.2 - 12/17/2019 DTL 97.9 fL 5:07 AM HOOP COILING MACHINE OPERATOR RBC Distrib Width 12.2 12.2 - 12/17/2019 DTL 16.1 % 5:07 AM HOOP COILING MACHINE OPERATOR Platelet Count 160 157 - 371 12/17/2019 DTL x10(9)/L 5:07 AM HOOP COILING MACHINE OPERATOR Leukocytes 7.5 3.4 - 9.6 12/17/2019 DTL x10(9)/L 5:07 AM HOOP COILING MACHINE OPERATOR Specimen Anatomical Collection Method Collection Time Receive d Time (Source) Location / / Volume Laterality Blood (Blood, 12/17/2019 4:51 AM 12/17/19 5:03 Venous) HOOP COILING MACHINE OPERATOR AM HOOP COILING MACHINE OPERATOR Jose Rafael Chew M.D. LAB BLOOD ADD-ON Performing Organization Address City/[facility] Code Phon e Number [facility] - [address] [place] [address] Laboratories-[facility] [address] [facility] Surgical Pathology, Frozen Lab (12/16/2019 11:55 AM HOOP COILING MACHINE OPERATOR) Component Value Ref Test Analysis Performed At [facility] gist Range Method Time Signature 12/16/2019 STMA 5:47 PM HOOP COILING MACHINE OPERATOR Report Randall Banuelos M.D. [phone] 12/16 [facility] electronically I verify that I have examined all relevant slides/ma terials 5:47 PM HOOP COILING MACHINE OPERATOR signed by for the specimen(s) and rendered or confirmed the diagnosis. Gross Description A. ??Received fresh labeled panniculus is a 103 0 gram 12/16/2019 STMA aggregate of unremarkable skin and adipose tissue. ??Gross 5:47 PM HOOP COILING MACHINE OPERATOR examination only. ??Grossed by SSF. Interpretation FINAL DIAGNOSIS [facility]/16/2019 [facility] ??Skin and soft tissue, panniculus, panniculectomy: ??A 5:47 PM HOOP COILING MACHINE OPERATOR 1030 gram aggregate of unremarkable skin and adipose tissue. Gross examination only. Specimen (Source) Anatomical Collection Method Collection Time Re ceived Time Location / / Volume Laterality Tissue 12/16/2019 11:55 (Panniculus) AM HOOP COILING MACHINE OPERATOR Comment: Please weigh specimen Narrative This result has an attachment that is no t available. Clare Murphy LAB SURG PATH ORDERABLES Performing Organization Address City/State/ZIP Code Phon e Number [place] [address] [address] [place] [address] [facility] [address] [address] [place] [facility] documented in this encounter Visit Diagnoses Diagnosis Panniculitis - Primary Panniculitis documented in this encounter Admitting Diagnoses Diagnosis Panniculitis documented in this encounter Administered Medications Inactive Administered Medications - up to 3 most recent administrations Medication Order MAR Action Action Date Dose Rate Site acetaminophen tablet 1,000 mg Given 12/17/2019 3:56 AM HOOP COILING MACHINE OPERATOR 1,000 mg (TYLENOL) 1,000 mg, oral, Every 6 hours, First dose on Sun12/16/19 at 1615, Start 6 hours after last dose. Do not exceed 4 grams in 24 hours. Given 12/16/2019 9:34 PM HOOP COILING MACHINE OPERATOR 1,000 mg Given 12/16/2019 5:06 PM HOOP COILING MACHINE OPERATOR 1,000 mg acetaminophen tablet 1,000 mg (TYLENOL) Given 12/16/2019 9:36 AM HOOP COILING MACHINE OPERATOR 1,000 mg 1,000 mg, oral, Once, On Sun12/16/19 at 0930, For 1 dose, Pre-Op bupivacaine liposome (PF) 20 mL, Given 12/16/2019 1:47 PM HOOP COILING MACHINE OPERATOR 40 mL Other bupivacaine 30 mL in sodium chloride (PF) 0.9 % 100 mL injection As needed, Starting on Sun12/16/19 at 1312, Intra-Op Given 12/16/2019 1:12 PM HOOP COILING MACHINE OPERATOR 60 mL Other busPIRone tablet 15 mg (BUSPAR) Given 12/17/2019 8:37 AM HOOP COILING MACHINE OPERATOR 15 mg 15 mg, oral, Daily, First dose on Sun12/17/19 at 0900 celecoxib capsule 400 mg (CeleBREX) Given 12/16/2019 9:38 AM HOOP COILING MACHINE OPERATOR 400 mg 400 mg, oral, Once, On Sun12/16/19 at 0930, For 1 dose, Pre-Op, Ammonium Nitrate Neutralizer, PreOp cholecalciferol (vitamin D3) tablet Given 12/17/2019 8:37 AM HOOP COILING MACHINE OPERATOR 2,000 Units 2,000 Units 2,000 Units, oral, Daily, First dose on Sun12/17/19 at 0900, cholecalciferol (vitamin D3) orderable was interchanged for cholecalciferol (vitamin D3) tablet/capsule 25 mcg cholecalciferol equivalent to 1000 units cholecalciferol cyanocobalamin tablet 1,000 mcg (VITAMIN Given 12/17/2019 8: 37 AM HOOP COILING MACHINE OPERATOR 1,000 mcg B12) 1,000 mcg, oral, Daily, First dose on Sun12/17/19 at 0900 enoxaparin injection 40 mg Given 12/17/2019 8:37 AM HOOP COILING MACHINE OPERATOR 40 mg Left Upper Arm (LOVENOX) (Back) 40 mg, subcutaneous, Daily, First dose on Sun12/17/19 at 0900 fentaNYL injection 25 mcg (SUBLIMAZE) Given 12/16/2019 2:45 PM HOOP COILING MACHINE OPERATOR 25 mcg 25 mcg, intravenous, Every 2 min PRN, For pain 4 or greater (maximum 100 mcg). If max dose of Fentanyl is reached and if pain is greater than 4, discontinue Fentanyl: give Hydromorphone, Starting on Sun12/16/19 at 1423, PACU (only) ferrous sulfate tablet 65 mg of iron Given 12/17/2019 8:37 AM HOOP COILING MACHINE OPERATOR 65 mg of iron 65 mg of iron, oral, Daily, First dose on Sun12/17/19 at 0900 gabapentin tablet 600 mg (NEURONTIN) Given 12/16/2019 9:37 AM HOOP COILING MACHINE OPERATOR 600 mg 600 mg, oral, Once, On Sun12/16/19 at 0930, For 1 dose, Pre-Op, Ammonium Nitrate Neutralizer, PreOp gentamicin-polymixin B 20 mg-500,000 Given 12/16/2019 12:33 PM 1 ,000 mL Other Units irrigation (DABS_MODIFIED) HOOP COILING MACHINE OPERATOR irrigation, Once in surgery, OR use only, Starting on Sun12/16/19 at 1020, For 1 dose, Intra-Op, *IRRIGATION ONLY* lactated ringers New Bag 12/16/2019 5:06 PM HOOP COILING MACHINE OPERATOR 100 mL/hr 100 mL/hr 100 mL/hr, intravenous, Continuous, Starting on Sun12/16/19 at 1530 melatonin tablet 5 mg 5 mg, oral, Bedtime PRN, sleep, Starting on Sun 0 at 2122 wvsozgsfappa-pezp-IJ-Ca-minerals 9 mg Given 12/17/2019 8:[address] 1 tablet iron-400 mcg tablet 1 tablet (THERAPEUTI C-M) 1 tablet, oral, Daily, First dose on Sun12/17/19 at 0900 ondansetron ODT disintegrating tablet 4 mg Given 12/16/2019 9:38 AM HOOP COILING MACHINE OPERATOR 4 mg (ZOFRAN-ODT) 4 mg, sublingual, Once, On Sun12/16/19 at 0930, For 1 dose, Pre-Op, When splitting ODT at bedside, handle with gloves and a pill splitter to prevent moisture contact. oxyCODONE IR tablet 10 mg (ROXICODONE) Given 12/17/2019 9:22 AM HOOP COILING MACHINE OPERATOR 10 mg 10 mg, oral, Every 4 hours PRN, moderate pain or score 4-6 of 10, severe pain or score 7-10 of 10, Starting on Sun12/16/19 at 1525 Given 12/17/2019 3:56 AM HOOP COILING MACHINE OPERATOR 10 mg Given 12/16/2019 11:01 PM HOOP COILING MACHINE OPERATOR 10 mg oxyCODONE IR tablet 5 mg (ROXICODONE) Given 12/16/2019 6:51 PM HOOP COILING MACHINE OPERATOR 5 mg 5 mg, oral, Every 4 hours PRN, mild pain or score 1-3 of 10, Starting on Sun12/16/19 at 1525 PARoxetine tablet 40 mg (PAXIL) Given 12/17/2019 9:22 AM HOOP COILING MACHINE OPERATOR 40 mg 40 mg, oral, Daily, First dose on Sun12/17/19 at 0900 scopolamine base 1 mg Medication Applied 12/16/2019 9:38 AM 1 patch Behind Left Ear over 3 days 1 patch HOOP COILING MACHINE OPERATOR (TRANSDERM SCOP) 1 patch, transdermal, Administer over 72 Hours, Once as needed, nausea, vomiting, Starting on Sun12/16/19 at 0925, For 1 dose, Pre-Op, Contains 1.5 mg to deliver 1 mg/72 hours. sennosides-docusate sodium 8.6-50 mg per Given 12/17/2019 8:37 A M HOOP COILING MACHINE OPERATOR 1 tablet tablet 1 tablet (SENOKOT-S) 1 tablet, oral, 2 times daily, First dose on Sun12/16/19 at 2100, Do not give if patient has diarrhea. Given 12/16/2019 9:34 PM HOOP COILING MACHINE OPERATOR 1 tablet tranexamic acid 3 g in NaCl 0.9% 75 mL Given 12/16/2019 1:12 PM HOOP COILING MACHINE OPERATOR 30 mL Other topical solution 75 mL, topical, Once in surgery, OR use only, Starting on Sun12/16/19 at 1020, For 1 dose, Intra-Op, For topical use ONLY documented in this encounter Active and Recently Administered Medications Times are shown in HOOP COILING MACHINE OPERATOR. Scheduled Medication Order 12/15/2019 12/16/2019 12/17/2019 acetaminophen tablet 1,000 mg (TYLENOL) 1706 (Given - Provider: Dorota Tejeda RSarah.)4384 (Given - Provider: Carter Betts RSarah.) 0356 [...] at 0930, For 1 dose, Pre- Op, Ammonium Nitrate Neutralizer, PreOp cholecalciferol (vitamin D3) tablet 2,000 Units [...] at 0930, For 1 dose, Pre- Op, Ammonium Nitrate Neutralizer, PreOp xttpeufctyly-xmsr-JO-Ca-minerals 9 mg ir on-400 mcg tablet 1 [...] (SE NOKOT-S) 2133 (Given - Provider: Laurence OttoNRodrigo) 37 (Given - Provider: Makenna Squires R.N.) [...] 1445 (Given - Provider: Chhaya Terrell R.N., [facility]) 25 mcg, intravenous, Every 2 min [...] RSarah.) 0356 (Given - Provider: Carter Betts RRodrigoN.)0926 (Given - Provider: Makenna Squires R.N.) 10 [...] ( CANCELED) 0938 (Medication Applied - Provider: aMry Hutson R.N.)1525 (Due: Medication Removed - Provider: [...] documented as of this encounter Care Teams Satellite Television Installer Relationship Specialty Start Date End Date Annemarie Montiel M.D. PCP - General 04/19/[address] [place] [phone] documented as of this encounter
--- OUTSIDE RECORDS SUMMARY | 2022-07-25 09:11 | XMS_ITS | Encounter Summary ---
:1985 Author Organization [facility] Address [address] [place] [address] Care Team Providers Name Role Phone Annemarie Montiel M.D. Primary Care Provider [phone] Reason for Visit Outpatient (Routine) - Closed Specialty Diagnoses / Procedures Referred By Contact Refer red To Contact Plastic Surgery Leyla River, PMesha, [facility] [address] [place], [place] [address] Referral ID Status Reason Start Date Expiration Date Visits Requ ested Visits Authorized [id number] Closed 12/30/2019 12/29/2020 1 1 Encounter Details Date Type Department Care Team Description 01/13/2020 Office Visit Division of Plastic Kera, Nic U p Examination Surgery in [place], Melanie, ÁNGEL, Posto perative Visit [place] C.N.P., D.N.P. (Primary Dx) [address] [facility] [address] [place] [phone] Social History Tobacco Use Types Packs/Day Years [...] How often do you attend islam or yazidi Never 07/04/2019 services? 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 - 01/13/2020 11:00 AM CDT SUBJECTIVE CHIEF COMPLAINT / REASON FOR VISIT Service of Dr. Deleon ([phone]) Maria Alejandra Gomez is a 34 y.o. 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 OBJECTIVE PHYSICAL EXAM Constitutional She appears well-developed [...] visit Neurology Marina Winter M.D., M.P.H. [address] [phone] (Wo rk) Scheduled Procedures [...] documented as of this encounter Care Teams Freight Air Brake Fitter Relationship Specialty Start Date End Date Annemarie Montiel M.D. PCP - General 04/19/[address] [phone] documented as of this encounter
--- OUTSIDE RECORDS SUMMARY | 2022-07-25 09:11 | XMS_ITS | Encounter Summary ---
:1985 Author Organization [facility] Address [address] [place] [address] Care Team Providers Name Role Phone Annemarie Montiel M.D. Primary Care Provider [phone] Reason for Visit Reason Onset Date Comments Depression 01/06/2020 PHQ9 Encounter Details Date Type Department Care Team Description 01/06/2020 Clinical Department of Annemarie Montiel Depression (PHQ9) Communication Family MedicineNadia M.D. [facility], [address] [facility] [phone] [address] [place], [place] (Work) [phone] Social History Tobacco Use [...] How often do you attend jewish or islam Never 07/04/2019 services? 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 [address], [place] [phone] (Wo rk) Scheduled Procedures Name Priority Associated Diagnoses Date/Time LIFT THIGH Excessive And Redundant Skin And Subcutaneous Tissue documented as of this encounter Visit Diagnoses Not on filedocumented in this encounter Additional Health Concerns Assessment Noted Time PHQ-9 Depression Total Score: 19 10/09/2019 11:[address] documented as of this encounter Care Teams Dosier Operator Relationship Specialty Start Date End Date Annemarie Montiel M.D. PCP - General 04/19/17 [address], [place] [phone] documented as of this encounter
--- OUTSIDE RECORDS SUMMARY | 2022-07-25 09:11 | XMS_ITS | Encounter Summary ---
:1985 Author Organization [facility] Address [address] [place] [address] Care Team Providers Name Role Phone Annemarie Montiel M.D. Primary Care Provider Reason for Referral Outpatient (Routine) - Closed Specialty Diagnoses / Procedures Referred By Contact Refer red To Contact Plastic Surgery Leyla River P.A.-C., [facility] [address] [place], [place] [address] Referral ID Status Reason Start Date Expiration Date Visits Requ ested Visits Authorized [id number] Closed 12/30/2019 12/29/2020 1 1 AND HARDWARE OUTFITTER Outpatient (Routine) - Closed Specialty Diagnoses / Procedures Referred By Contact Refer red To Contact Plastic Surgery Leyla River P.A.-C., [facility] [address] [place], [place] [address] Referral ID Status Reason Start Date Expiration Date Visits Requ ested Visits Authorized [id number] Closed 12/30/2019 12/29/2020 1 1 AND HARDWARE OUTFITTER Reason for Visit Outpatient (Routine) - Closed Specialty Diagnoses / Procedures Referred By Contact Refer red To Contact [facility] [address] [place] [address] Referral ID Status Reason Start Date Expiration Date Visits Requ ested Visits Authorized [id number] Closed 12/12/2019 12/11/2020 1 1 Encounter Details Date Type Department Care Team Description 12/30/2019 Office Visit Division of Plastic Leyla River Fol low Up Examination Surgery in [place], P.Rohini., P .A. Postoperative Visit [place] [address] Denise Dye (Primary Dx) [address] [place] [phone] Social History Tobacco Use Types Packs/Day Years [...] How often do you attend advent or orthodoxy Never 07/04/2019 services? 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 Gomez. AND HARDWARE OUTFITTER documented in this encounter Plan of Treatment Upcoming Encounters Date Type Specialty Care Team Description 08/17/2022 Procedure visit Neurology Marina Winter M.D., M.P.H. [address] [place], [place] [phone] (Wo rk) Scheduled Procedures [...] documented as of this encounter Care Teams Department Store General Manager Relationship Specialty Start Date End Date Annemarie Montiel M.D. PCP - General 04/19/172199 [place] [address] documented as of this encounter
--- OUTSIDE RECORDS SUMMARY | 2022-07-25 09:11 | XMS_ITS | Encounter Summary ---
:1985 Author Organization [facility] Address [address] [place] [address] Care Team Providers Name Role Phone Annemarie Montiel M.D. Primary Care Provider [phone] Encounter Details Date Type Department Care [...] How often do you attend bahai or protestant Never 07/04/2019 services? 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 [address] [phone] (Wo rk) Scheduled Procedures Name Priority Associated Diagnoses Date/Time LIFT THIGH Excessive And Redundant Skin And Subcutaneous Tissue documented as of this encounter Procedures Procedure Name Priority Date/Time Associated Diagnosis Comme nts PLASTIC AND RECON Routine 12/16/2019 12:05 PM Res ults for this SURGERY IMAGE EXAM PROOFER APPRENTICE procedure are in the results section. documented in this encounter Results Specimen-Plastic And Recon Surgery Image Exam (12/16/2019 12:05 PM PROOFER APPRENTICE) Specimen (Source) Anatomical Location Collection Method / Collectio n Time Received Time / Laterality Volume Narrative IIMS - 12/17/2019 4:33 PM PROOFER APPRENTICE This order has been created and auto-finalized [...] documented as of this encounter Care Teams Grinder Machine Knife Setter Relationship Specialty Start Date End Date Annemarie Montiel M.D. PCP - General 04/19/17 [address] [facility] [place] [phone] documented as of this encounter
--- OUTSIDE RECORDS SUMMARY | 2022-07-25 09:11 | XMS_ITS | Encounter Summary ---
:1985 Author Organization [facility] Address [address] [place] [address] Care Team Providers Name Role Phone Annemarie Montiel M.D. Primary Care Provider [phone] Reason for Visit Auth/Cert Specialty Diagnoses / Procedures Referred By Contact Refer red To Contact Diagnoses Panniculitis Bariatric surgery status Panniculitis [M79.3] Procedures MI EXCISN EXCESS SKIN/TISS ABD PANNICULECTOMY Referral ID Status Reason Start Date Expiration Date Visits Requ ested Visits Authorized [id number] 1 1 Encounter Details Date Type Department Care Team Description 12/16/2019 - Hospital Encounter [facility] Pancho Keeley rojo (Primary 12/17/2019 [facility], [facility] , [facility], Dx) [facility], Ninth Floor [address] [place] [address] [place] [phone] Social History Tobacco Use Types Packs/Day Years [...] How often do you attend jain or orthodox Never 07/04/2019 services? 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 documented as of this encounter Last Filed Vital Signs Vital Sign Reading Time Taken Comments Blood Pressure 101/58 12/17/2019 8:30 AM PROJECT PRODUCTION ENGINEER Pulse 78 12/17/2019 8:30 AM PROJECT PRODUCTION ENGINEER Temperature 37 ??C (98.6 ??F) 12/17/2019 8:30 AM PROJECT PRODUCTION ENGINEER Respiratory Rate 16 12/17/2019 8:30 AM PROJECT PRODUCTION ENGINEER Oxygen Saturation 98% 12/17/2019 8:30 AM PROJECT PRODUCTION ENGINEER Inhaled Oxygen Concentration - - Weight 74.5 kg (164 lb 3.9 oz) 12/16/2019 8:35 AM PROJECT PRODUCTION ENGINEER Height 163.5 cm (5' 4.37) 12/16/2019 8:35 AM PROJECT PRODUCTION ENGINEER Body Mass Index 27.87 12/16/2019 8:35 AM PROJECT PRODUCTION ENGINEER documented in this encounter Discharge Summaries Lidia Irby Lexy, ÁNGEL, C.N.P. - 12/17/2019 8:46 AM CST DISCHARGE SUMMARY BRIEF OVERVIEW Discharge Provider: Clare Deleon M.B.B.S. Primary Care Providers: Annemarie Montiel M.D. (General) [address] [address] Primary Care Provider Primary Care Provider Admission [...] control your pain you may transition to sfef-jrr-kntnsuo Tylenol for pain relief. Do not take [...] otherwise. Please feel free to call the leasing sales consultant surgeon's office for details if you do not have these. Please check your portal or call the scheduling office for information regarding your appointment. CONTACT INFORMATION ?? - If you have questions about your appointment schedule, please call [phone]. - During evening or weekend hours, you may contact a member of the Plastic Surgery team by calling the [facility] control operator at [phone] and ask to speak with the Plastic Surgery resident web services professional for emergencies. If you have questions about your appointment schedule and you are a hand patient, please call [phone] Sunday through Sunday, 8:00 - 4:30 PM, otherwise call [phone]. For any questions or concerns regarding your care or post-operative instructions, please call , Sunday through Sunday, 8:00 - 4:30 PM. If you experience an urgent issue related to your surgery outside of business hours, please contact the [facility] control operator at and ask to speak with [...] were provided to the patient and caregiver(s). ECT PRODUCTION ENGINEER documented in this encounter Discharge Instructions AttachmentsThe following attachments cannot be sent through Care Everywhere. Ondansetron (By mouth, Into the mouth) (South African)Laxative, Stimulant Combination (By mouth) (South African)Oxycodone, Rapid Release (By mouth) (South African)documented in this encounter Medications at Time of [...] mouth 0 at bedtime as needed (sleep). mrtzjwznogjz-Ab-gfdb-gold miner blasting Take 1 tablet by 0 als (MULTIPLE [...] Disposition: DC 12/17 Follow up: 12/30 [place] [address] ECT PRODUCTION ENGINEER documented in this encounter Nursing Notes Makenna Squires R.N. - 12/17/2019 9:47 AM CST Pt discharged to [facility] this morning. Medications picked up at outpatient pharmacy. IVs removed. All discharge education completed and all questions answered. Vital signs stable. BP 101/58 (BP Location: Left arm;Upper, Patient Position: Sitting) Pulse 78 Temp 37 ??C (Oral) Resp 16 Ht 163.5 cm Wt 74.5 kg LMP 06/08/2017 SpO2 98% No BMI 27.87 kg/m?? Electronically signed by: Makenna Squires R.N. 12/17/19 10:06 AM PROJECT PRODUCTION ENGINEER ECT PRODUCTION ENGINEER Makenna Squires R.N. - 12/17/2019 9:46 AM CST Shift Goals: Clinical Goals for the Shift: Prepare for DC Identify possible barriers to meeting goals/advancing plan of care: None End of Shift Summary: VSS. Ambulating SBA/independently. Voiding spontaneously. Pt safe and free of falls on shift. Planning to DC to [facility] today. Electronically signed by: Makenna Squires R.N. 12/17/19 9:47 AM PROJECT PRODUCTION ENGINEER ECT PRODUCTION ENGINEER Carter Betts R.N. - 12/17/2019 6:45 AM CST Shift Goals: Clinical Goals for the Shift: Pain Control Identify possible barriers to meeting goals/advancing plan of care: not alerting staff of pain End of Shift Summary: Pt. Was able to ambulate at the beginning of the shift with standby assistancebefore going to bed. Pt. Was vitally stable overnight and pain was easily controlled. ECT PRODUCTION ENGINEER documented in this encounter OR Notes Op Note - Jose Rafael Chew M.D. - 12/16/2019 11:30 AM CST FULL OP NOTE Procedure(s): PANNICULECTOMY, Possible Lily de lis. Surgeon(s) and Role: * Clare Deleon M.B.BRodrigoSRodrigo - Primary * Jose Rafael Chew M.D. - Tax Intern * Sulma Lindsay M.B.BShan, M.S. - Other General Office Dispatcher Anesthesia Type General Pre-operative Diagnosis Panniculitis Post-operative [...] horizontal-only incision versus horizontal and vertical component cxveh-jc-[id number] incision. We started with the lower incision, [...] interrupted 4-0 Monocryl. We then placed two 15-Turkish BIANCA drains coming out laterally on her lateral thighs region via trocar and these were secured using3-0 nylon sutures. Prior to final closure we noticed, as noted on the previous CT scan, a tiny fat hernia superior to the umbilicus. This was fixed using interrupted mbyplp-mo-uxdug 2-0 PDS. Two sutures were placed, and [...] 15 Fr. Size (mm): Size (In): Drain [place] Size (mL): 100 mL Number of Sutures Placed: Removal Reason: Closed/Suction Drain 1 Left;Anterior;Lateral Leg Bulb 15 Fr. (Active) 12/16/19 1301 Leg Placed by External Staff?: Placed by: Dr Deleon Tube Number: 1 Orientation: Left;Anterior;Lateral Drain Tube Type: Bulb Size (Fr): 15 Fr. Size (mm): Size (In): Drain [place] Ridge Size (mL): 100 mL Number of Sutures [...] Loss None Implants None Mo Ella Chew ECT PRODUCTION ENGINEER documented in this encounter Miscellaneous Notes Hospital [...] the patient was discharged from the hospital. ECT PRODUCTION ENGINEER documented in this encounter Plan of Treatment Upcoming Encounters Date Type Specialty Care Team Description 08/17/2022 Procedure visit Neurology Marina Winter M.D., M.P.H. [address] [place] [phone] (Wo rk) Scheduled Procedures Name Priority Associated Diagnoses Date/Time LIFT THIGH Excessive And Redundant Skin And Subcutaneous Tissue documented as of this encounter Procedures Procedure Name Priority Date/Time Associated Diagnosis Comme nts CBC WITHOUT Routine 12/17/2019 4:51 Results for this DIFFERENTIAL, B AM PROJECT PRODUCTION ENGINEER procedure ar e in the results section. BASIC METABOLIC PANEL, Routine 12/17/2019 4:51 Re sults for this S/P AM PROJECT PRODUCTION ENGINEER procedure are i n the results section. ADULT OXYGEN THERAPY Routine 12/16/2019 2:23 PM PROJECT PRODUCTION ENGINEER SURGICAL PATHOLOGY, Routine 12/16/2019 11:55 Panniculitis Resu lts for this [facility] AM PROJECT PRODUCTION ENGINEER procedure are i n the results section. PANNICULECTOMY 12/16/2019 10:24 Panniculitis AM PROJECT PRODUCTION ENGINEER documented in this encounter Results (ABNORMAL) Basic Metabolic Panel (12/17/2019 4:51 AM PROJECT PRODUCTION ENGINEER) P athologist Signature Potassium, S 3.9 3.6 - 5.2 12/17/2019 DTL mmol/L 6:00 AM PROJECT PRODUCTION ENGINEER Sodium, S 140 135 - 145 12/17/2019 DTL mmol/L 6:00 AM PROJECT PRODUCTION ENGINEER Chloride, S 102 98 - 107 12/17/2019 DTL mmol/L 6:00 AM PROJECT PRODUCTION ENGINEER Bicarbonate, S 24 22 - 29 12/17/2019 DTL mmol/L 6:00 AM PROJECT PRODUCTION ENGINEER Anion Gap 14 7 - 15 12/17/2019 DTL 6:00 AM PROJECT PRODUCTION ENGINEER BUN (Blood Urea 9 6 - 21 12/17/2019 DTL Nitrogen), S mg/dL 6:00 AM PROJECT PRODUCTION ENGINEER Creatinine 0.63 0.59 - 12/17/2019 DTL 1.04 mg/dL 6:00 AM PROJECT PRODUCTION ENGINEER eGFR-Non >90 >=60 12/17/2019 DTL Black/ mL/min/BSA 6:00 AM PROJECT PRODUCTION ENGINEER Finnish Comment: ----ADDITIONAL INFORMATION---- Estimated GFR calculated using the 2009 CKD_EPI creatinine equation. eGFR-Black/ >90 >=60 mL/min/BSA 2019 6:00 AM PROJECT PRODUCTION ENGINEER DTL Comment: ----ADDITIONAL INFORMATION---- Estimated GFR calculated using the 2009 CKD_EPI creatinine equation. Calcium, Total, S 8.5 (L) 8.6 - 10.0 mg/dL 12/17/2019 6:00 AM PROJECT PRODUCTION ENGINEER DTL Glucose, S 81 70 - 140 mg/dL 12/17/2019 6:00 AM PROJECT PRODUCTION ENGINEER D TL Specimen Anatomical Collection Method Collection Time Receive d Time (Source) Location / / Volume Laterality Blood (Blood, 12/17/2019 4:51 AM 12/17/19 5:02 Venous) PROJECT PRODUCTION ENGINEER AM PROJECT PRODUCTION ENGINEER Clare Murphy LAB BLOOD ADD-ON Performing Organization Address City/[facility] Code Phon e Number [facility] - [address] [place], [place] [address] [facility] [place] [address] Laboratories[address] (ABNORMAL) CBC without Differential (12/17/2019 4:51 AM PROJECT PRODUCTION ENGINEER) [facility] gist Method Time Signature Hemoglobin 11.5 (L) 11.6 - 12/17/2019 DTL 15.0 g/dL 5:07 AM PROJECT PRODUCTION ENGINEER Hematocrit 33.7 (L) 35.5 - 12/17/2019 DTL 44.9 % 5:07 AM PROJECT PRODUCTION ENGINEER Erythrocytes 3.78 (L) 3.92 - 12/17/2019 DTL 5.13 5:07 AM PROJECT PRODUCTION ENGINEER x10(12)/L MCV 89.2 78.2 - 12/17/2019 DTL 97.9 fL 5:07 AM PROJECT PRODUCTION ENGINEER RBC Distrib Width 12.2 12.2 - 12/17/2019 DTL 16.1 % 5:07 AM PROJECT PRODUCTION ENGINEER Platelet Count 160 157 - 371 12/17/2019 DTL x10(9)/L 5:07 AM PROJECT PRODUCTION ENGINEER Leukocytes 7.5 3.4 - 9.6 12/17/2019 DTL x10(9)/L 5:07 AM PROJECT PRODUCTION ENGINEER Specimen Anatomical Collection Method Collection Time Receive d Time (Source) Location / / Volume Laterality Blood (Blood, 12/17/2019 4:51 AM 12/17/19 5:03 Venous) PROJECT PRODUCTION ENGINEER AM PROJECT PRODUCTION ENGINEER Jose Rafael Chew M.D. LAB BLOOD ADD-ON Performing Organization Address City/[facility] Code Phon e Number [facility] - [address] [place], [place] [address] [facility] [place] [address] Laboratories-[address] Surgical Pathology, Frozen Lab (12/16/2019 11:55 AM PROJECT PRODUCTION ENGINEER) Component Value Ref Test Analysis Performed At [facility] gist Range Method Time Signature [facility]47 [facility] PROJECT PRODUCTION ENGINEER Report Randall Banuelos M.D. [phone] 12/16 [facility] electronically I verify that I have examined all relevant slides/ma terials 5:47 PM PROJECT PRODUCTION ENGINEER signed by for the specimen(s) and rendered or confirmed the diagnosis. Gross Description A. ??Received fresh labeled panniculus is a 103 0 gram 12/16/2019 [facility] aggregate of unremarkable skin and adipose tissue. ??Gross 5:47 PM PROJECT PRODUCTION ENGINEER examination only. ??Grossed by SSF. Interpretation FINAL DIAGNOSIS [facility]16[facility] A. ??Skin and soft tissue, panniculus, panniculectomy: ??A 5:47 PM PROJECT PRODUCTION ENGINEER 1030 gram aggregate of unremarkable skin and adipose tissue. Gross examination only. Specimen (Source) Anatomical Collection Method Collection Time Re ceived Time Location / / Volume Laterality Tissue 12/16/2019 11:55 (Panniculus) AM PROJECT PRODUCTION ENGINEER Comment: Please weigh specimen Narrative This result has an attachment that is no t available. Clare Murphy LAB SURG PATH ORDERABLES Performing Organization Address City/State/ZIP Code Phon e Number [facility] - [address] [place] [address] [place] [address] documented in this encounter Visit Diagnoses Diagnosis Panniculitis - Primary documented in this encounter Admitting Diagnoses Diagnosis Panniculitis documented in this encounter Administered Medications Inactive Administered Medications - up to 3 most recent administrations Medication Order MAR Action Action Date Dose Rate Site acetaminophen tablet 1,000 mg Given 12/17/2019 3:56 AM PROJECT PRODUCTION ENGINEER 1,000 mg (TYLENOL) 1,000 mg, oral, Every 6 hours, First dose on Sun12/16/19 at 1615, Start 6 hours after last dose. Do not exceed 4 grams in 24 hours. Given 12/16/2019 9:34 PM PROJECT PRODUCTION ENGINEER 1,000 mg Given 12/16/2019 5:06 PM PROJECT PRODUCTION ENGINEER 1,000 mg acetaminophen tablet 1,000 mg (TYLENOL) Given 12/16/2019 9:36 AM PROJECT PRODUCTION ENGINEER 1,000 mg 1,000 mg, oral, Once, On Sun12/16/19 at 0930, For 1 dose, Pre-Op busPIRone tablet 15 mg (BUSPAR) Given 12/17/2019 8:37 AM PROJECT PRODUCTION ENGINEER 15 mg 15 mg, oral, Daily, First dose on Sun12/17/19 at 0900 celecoxib capsule 400 mg (CeleBREX) Given 12/16/2019 9:38 AM PROJECT PRODUCTION ENGINEER 400 mg 400 mg, oral, Once, On Sun12/16/19 at 0930, For 1 dose, Pre-Op, Pipe Testing Technician, PreOp cholecalciferol (vitamin D3) tablet Given 12/17/2019 8:37 AM PROJECT PRODUCTION ENGINEER 2,000 Units 2,000 Units 2,000 Units, oral, Daily, First dose on Sun12/17/19 at 0900, cholecalciferol (vitamin D3) orderable was interchanged for cholecalciferol (vitamin D3) tablet/capsule 25 mcg cholecalciferol equivalent to 1000 units cholecalciferol cyanocobalamin tablet 1,000 mcg (VITAMIN Given 12/17/2019 8: 37 AM PROJECT PRODUCTION ENGINEER 1,000 mcg B12) 1,000 mcg, oral, Daily, First dose on Sun12/17/19 at 0900 enoxaparin injection 40 mg Given 12/17/2019 8:37 AM PROJECT PRODUCTION ENGINEER 40 mg Left Upper Arm (LOVENOX) (Back) 40 mg, subcutaneous, Daily, First dose on Sun12/17/19 at 0900 fentaNYL injection 25 mcg (SUBLIMAZE) Given 12/16/2019 2:45 PM PROJECT PRODUCTION ENGINEER 25 mcg 25 mcg, intravenous, Every 2 min PRN, For pain 4 or greater (maximum 100 mcg). If max dose of Fentanyl is reached and if pain is greater than 4, discontinue Fentanyl: give Hydromorphone, Starting on Sun12/16/19 at 1423, PACU (only) ferrous sulfate tablet 65 mg of iron Given 12/17/2019 8:37 AM PROJECT PRODUCTION ENGINEER 65 mg of iron 65 mg of iron, oral, Daily, First dose on Sun12/17/19 at 0900 gabapentin tablet 600 mg (NEURONTIN) Given 12/16/2019 9:37 AM PROJECT PRODUCTION ENGINEER 600 mg 600 mg, oral, Once, On Sun12/16/19 at 0930, For 1 dose, Pre-Op, Pipe Testing Technician, PreOp lactated ringers New Bag 12/16/2019 5:06 PM PROJECT PRODUCTION ENGINEER 100 mL/hr 100 mL/hr 100 mL/hr, intravenous, Continuous, Starting on Sun12/16/19 at 1530 melatonin tablet 5 mg 5 mg, oral, Bedtime PRN, sleep, Starting on Sun 0 at 2122 nzugrdvgqblp-tslk-ZE-Ca-minerals 9 mg Given 12/17/2019 8:[address] 1 tablet iron-400 mcg tablet 1 tablet (THERAPEUTI C-M) 1 tablet, oral, Daily, First dose on Sun12/17/19 at 0900 ondansetron ODT disintegrating tablet 4 mg Given 12/16/2019 9:38 AM PROJECT PRODUCTION ENGINEER 4 mg (ZOFRAN-ODT) 4 mg, sublingual, Once, On Sun12/16/19 at 0930, For 1 dose, Pre-Op, When splitting ODT at bedside, handle with gloves and a pill splitter to prevent moisture contact. oxyCODONE IR tablet 10 mg (ROXICODONE) Given 12/17/2019 9:22 AM PROJECT PRODUCTION ENGINEER 10 mg 10 mg, oral, Every 4 hours PRN, moderate pain or score 4-6 of 10, severe pain or score 7-10 of 10, Starting on Sun12/16/19 at 1525 Given 12/17/2019 3:56 AM PROJECT PRODUCTION ENGINEER 10 mg Given 12/16/2019 11:01 PM PROJECT PRODUCTION ENGINEER 10 mg oxyCODONE IR tablet 5 mg (ROXICODONE) Given 12/16/2019 6:51 PM PROJECT PRODUCTION ENGINEER 5 mg 5 mg, oral, Every 4 hours PRN, mild pain or score 1-3 of 10, Starting on Sun12/16/19 at 1525 PARoxetine tablet 40 mg (PAXIL) Given 12/17/2019 9:22 AM PROJECT PRODUCTION ENGINEER 40 mg 40 mg, oral, Daily, First dose on Sun12/17/19 at 0900 scopolamine base 1 mg Medication Applied 12/16/2019 9:38 AM 1 patch Behind Left Ear over 3 days 1 patch PROJECT PRODUCTION ENGINEER (TRANSDERM SCOP) 1 patch, transdermal, Administer over 72 Hours, Once as needed, nausea, vomiting, Starting on Sun12/16/19 at 0925, For 1 dose, Pre-Op, Contains 1.5 mg to deliver 1 mg/72 hours. sennosides-docusate sodium 8.6-50 mg per Given 12/17/2019 8:37 A M PROJECT PRODUCTION ENGINEER 1 tablet tablet 1 tablet (SENOKOT-S) 1 tablet, oral, 2 times daily, First dose on Sun12/16/19 at 2100, Do not give if patient has diarrhea. Given 12/16/2019 9:34 PM PROJECT PRODUCTION ENGINEER 1 tablet documented in this encounter Active and Recently Administered Medications Times are shown in PROJECT PRODUCTION ENGINEER. Scheduled Medication Order 12/15/2019 12/16/2019 12/17/2019 acetaminophen [...] at 0930, For 1 dose, Pre- Op, Pipe Testing Technician, PreOp cholecalciferol (vitamin D3) tablet 2,000 Units [...] at 0930, For 1 dose, Pre- Op, Pipe Testing Technician, PreOp qnfhuqumxxbq-mwqf-XT-Ca-minerals 9 mg ir on-400 mcg tablet 1 [...] 1445 (Given - Provider: Chhaya Terrell R.N., [facility]) 25 mcg, intravenous, Every 2 min [...] OttoN.) 0356 (Given - Provider: Carter Betts R.N.)0983 (Given - Provider: Makenna Squires RRodrigoNRodrigo) 10 [...] days 1 patch (TRANSDERM SCOP) ( CANCELED) 0943 (Medication Applied - Provider: Mary Hutson R.N.)1525 [...] documented as of this encounter Care Teams Fuel Pilot Engineer Relationship Specialty Start Date End Date Annemarie Montiel M.D. PCP - General 04/19/172199 [address] [place] [address] documented as of this encounter
--- OUTSIDE RECORDS SUMMARY | 2022-07-25 09:11 | XMS_ITS | Encounter Summary ---
:1985 Author Organization [facility] Address [address] [place] [address] Care Team Providers Name Role Phone Annemarie Montiel M.D. Primary Care Provider [phone] Reason for Referral MRI/CAT/PET Scan (Routine) - Closed Specialty Diagnoses / Procedures Referred By Contact Refer red To Contact [facility]iology [facility]domen Pelvis with IV Contrast M.B.B.S. [address] [place], [place] [address] Referral ID Status Reason Start Date Expiration Date Visits Requ ested Visits Authorized [id number] Closed 12/15/2019 12/14/2020 1 1 PER SELECTOR Reason for Visit Outpatient (Routine) - Closed Specialty Diagnoses / Procedures Referred By Contact Refer red To Contact Plastic [facility] [address] [place], [place] [address] Referral ID Status Reason Start Date Expiration Date Visits Requ ested Visits Authorized [id number] Closed 11/26/2019 11/25/2020 1 1 Encounter Details Date Type Department Care Team Description 12/15/2019 Office Visit Division of Plastic Obinna Deleon (Primary Surgery in [place], Surendra SparksBRodrigoS. Dx) [place] [address] [facility] [address] [place] [phone] Social History Tobacco Use Types Packs/Day Years [...] How often do you attend episcopal or catholic Never 07/04/2019 services? 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 - 12/15/2019 2:15 PM CST Ms. Gomez is seen for a pre-op visit. No change since our last visit November 07, 2019. Likely, we will have to do a vertical component of the panniculectomy [id number]. Again, discussed T-junction and wound healing issues. We will plan to get a CT of the abdomen to evaluate for any hernias or otherfindings again today. Plan to have her stay overnight for observation purposes. Consent was signed today. PER SELECTOR documented in this encounter Plan of Treatment Upcoming Encounters Date Type Specialty Care Team Description 08/17/2022 Procedure visit Neurology Marina Winter M.D., M.P.H. [address] [phone] (Wo rk) Scheduled Procedures Name Priority Associated Diagnoses Date/Time LIFT THIGH Excessive And Redundant Skin And Subcutaneous Tissue documented as of this encounter Results CT Abdomen Pelvis with IV Contrast (12/15/2019 4:11 PM WRAPPER SELECTOR) Anatomical Region Laterality Modality Abdomen, Pelvis, Abdominal RST LOS, N/A Comp uted Tomography, Computed Abdominal ARZ LOS, Abdominal FLA LOS Manjeet ography Specimen (Source) Anatomical Collection Method Collection Time Re ceived Time Location / / Volume Laterality 12/16/2019 7:15 AM WRAPPER SELECTOR Impressions 12/16/2019 7:18 AM WRAPPER SELECTOR Tiny fat-containing umbilical hernia. Abdomen and pelvis otherwise negative. Narrative 12/16/2019 7:18 AM WRAPPER SELECTOR EXAM: ??CT ABDOMEN PELVIS WITH IV CONTRAST [...] documented as of this encounter Care Teams Tax Associate Attorney Relationship Specialty Start Date End Date Annemarie Montiel M.D. PCP - General 04/19/[address] [place] [phone] documented as of this encounter
--- OUTSIDE RECORDS SUMMARY | 2022-07-25 09:11 | XMS_ITS | Encounter Summary ---
:1985 Author Organization [facility] Address [address] [place] [address] Care Team Providers Name Role Phone Annemarie Montiel M.D. Primary Care Provider [phone] Reason for Visit Reason Comments Med Refill Encounter Details Date Type Department Care Team Description 08/11/2019 Refill Department of Yenifer Song M.D. Med Refill Medicine, [facility], [address] [place] [address] [address] [place] [address] [phone] Social History Tobacco Use Types Packs/Day Years [...] 03/29/2020 relatives? How often do you attend hindu or orthodox Never 07/04/2019 services? 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 [address] [place], [place] [phone] (Wo rk) Scheduled Procedures Name Priority Associated Diagnoses Date/Time LIFT THIGH Excessive And Redundant Skin And Subcutaneous Tissue documented as of this encounter Visit Diagnoses Not on filedocumented in this encounter Additional Health Concerns Assessment Noted Time PHQ-9 Depression Total Score: 11 03/25/2019 1:49 PM CD T documented as of this encounter Care Teams Glue Maker Relationship Specialty Start Date End Date Annemarie Montiel M.D. PCP - General 04/19/17 [address], [place] [address] documented as of this encounter
--- OUTSIDE RECORDS SUMMARY | 2022-07-25 09:11 | XMS_ITS | Encounter Summary ---
:1985 Author Organization [facility] Address [address] [place] [address] Care Team Providers Name Role Phone Annemarie Montiel M.D. Primary Care Provider [phone] Reason for Referral Outpatient (Routine) - Closed Specialty Diagnoses / Procedures Referred By Contact Refer red To Contact Plastic Surgery Diagnoses Surgery Bariatric Status Post Panniculitis Annemarie Montiel M.D. [facility] [address] [place] [address] Referral ID Status Reason Start Date Expiration Date Visits Requ ested Visits Authorized [id number] Closed 10/09/2019 10/08/2020 1 1 F ENGINEER Reason for Visit Reason Comments Anxiety Depression Follow-up bariatric surgery Outpatient (Routine) - Closed Specialty Diagnoses / Procedures Referred By Contact Refer red To Contact Family Medicine Diagnoses Depression Major Recurrent (HCC) Anxiety Generalized Disorder Surgery Bariatric Status Post Annemarie Montiel [facility] [address] [place] [address] Referral ID Status Reason Start Date Expiration Date Visits Requ ested Visits Authorized [id number] Closed 07/04/2019 07/03/2020 1 1 Encounter Details Date Type Department Care Team Description 10/09/2019 Office Visit Department of Annemarie Song Depression Major Recurrent (HCC) (Primary Dx); MedicinePorfirio M.D. Anxiety Generalized Disorder; Clinic, in [facility] [address] Surgery Bariatric Status Post; [place], [place] Panniculitis [address] [address] [place] [phone] (Wo rk) [address] [phone] Social History Tobacco Use Types Packs/Day Years [...] How often do you attend mandaen or buddhism Never 07/04/2019 services? 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 Continue on Paxil. I also had started her on sodium chloride 1 g tablets to help with lightheadedness and electrolyte balance. Encouraged her to eat more bananas to help increase potassium. Since then that patient notes that she has been doing better. She is currently living in [place] and has been consistently working. Patient notes [...] Prescription Cocunut oil 1000mg tablet daily ??? sbivebnelskg-Df-fbbx-minerals (MULTIPLE VITAMIN, WOMENS) tablet Take 1 tablet [...] their behalf by Laurie Mcleod a trained hospital medical assistant. The creation of this record is based on the scribe's personal observations and the provider's statements to them. This document has been latricia cked and approved by the attending provider. F ENGINEER documented in this encounter Plan of Treatment Upcoming Encounters Date Type Specialty Care Team Description 08/17/2022 Procedure visit Neurology Marina Winter M.D., M.P.H. [address] [phone] (Wo rk) Scheduled Procedures [...] documented as of this encounter Care Teams Crm Campaign Manager Relationship Specialty Start Date End Date Annemarie Montiel M.D. PCP - General 04/19/[address] [place] [address] documented as of this encounter
--- OUTSIDE RECORDS SUMMARY | 2022-07-25 09:11 | XMS_ITS | Encounter Summary ---
:1985 Author Organization [facility] Address [address] [place] [address] Care Team Providers Name Role Phone Annemarie Montiel M.D. Primary Care Provider [phone] Reason for Referral Outpatient (Routine) - Closed Specialty Diagnoses / Procedures Referred By Contact Refer red To Contact [facility]astic [facility] [address] [place] [phone] Referral ID Status Reason Start Date Expiration Date Visits Requ ested Visits Authorized [id number] Closed 11/26/2019 11/25/2020 1 1 TRICAL TRYOUT PERSON Encounter Details Date Type Department Care Team Description 11/26/2019 Orders Only Division of Plastic Surgery Ailin Mir, in [facility] jeevan Banks, R.N. [address] [place] [phone] Social History Tobacco Use Types Packs/Day [...] How often do you attend temple or rastafarian Never 07/04/2019 services? 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 [address], [place] [phone] (Wo rk) Scheduled Procedures [...] documented as of this encounter Care Teams Rib Builder Relationship Specialty Start Date End Date Annemarie Montiel M.D. PCP - General 04/19/17 [address] [place] [phone] documented as of this encounter
[2022-07-25 09:12] LABS: Basophils Percent Auto 1.3 % (0.0-3.0); Eosinophils Percent Auto 0.8 % (0.0-7.0); Hematocrit 39.2 % (33.0-51.0); Hemoglobin* 13.4 gm/dL (12.0-16.0); Immature Granulocytes Abs Auto 0.01 K/uL (0.00-0.30); Lymphocytes Percent Auto 29.1 % (20-44); Mean Corpuscular HGB Conc 34 gm/dL (32-36); Mean Corpuscular Hemoglobin 32 pg (26-34); Mean Corpuscular Volume 95 fL (80-100); Monocytes Percent Auto 8.4 % (0.0-11.0); Neutrophils Percent Auto 60.1 % (42.0-72.0); Platelet Count* 190 K/uL (140-440); RDW Coefficient of Variation % 11.9 % (11.5-15.5); Red Blood Count 4.15 m/uL (4.00-5.20); White Blood Count* 3.81 K/uL (4.50-11.00)
--- OUTSIDE RECORDS SUMMARY | 2022-07-25 09:12 | XMS_ITS | Encounter Summary ---
:1985 Author Organization [facility] Address [address] [place] [address] Care Team Providers Name Role Phone Annemarie Montiel M.D. Primary Care Provider [phone] Encounter Details Date Type Department Care Team Description 01/16/2019 Hospital Encounter Department of Annemarie Montiel H [facility]alemia [facility], [place] [address] [place] [address] [phone] Social History Tobacco Use Types Packs/Day Years [...] often do you attend latter day or amish Never 07/04/2019 services? 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 [address] [phone] (Wo rk) Scheduled Procedures [...] Potassium, S 4.5 3.6 - 5.2 01/16/2019 [facility] mmol/L 4:00 PM CDT [facility] Specimen Anatomical Collection Method Collection Time Receive d Time (Source) Location / / Volume Laterality Blood (Blood, 01/16/2019 2:54 PM 01/17/20 19 2:58 Venous) CDT PM CDT Annemarie Montiel M.D. LAB BLOOD ADD-ON Performing Organization Address City/State/ZIP Code Phon e Number [facility] [address] [place] [address] LAB documented in this encounter Visit Diagnoses Diagnosis Hypokalemia documented in this encounter Additional Health Concerns Assessment Noted Time PHQ-9 Depression Total Score: 13 01/16/2019 3:01 PM CD T documented as of this encounter Care Teams Design And Sales Consultant Relationship Specialty Start Date End Date Annemarie Montiel M.D. PCP - General 04/19/[address] [place] [address] documented as of this encounter
--- OUTSIDE RECORDS SUMMARY | 2022-07-25 09:12 | XMS_ITS | Encounter Summary ---
:1985 Author Organization [facility] Address [address] [place] [address] Care Team Providers Name Role Phone Annemarie Montiel M.D. Primary Care Provider [phone] Encounter Details Date Type Department Care [...] often do you attend jehovah's witness or pentecostalism Never 07/04/2019 services? 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 [address] [place] [phone] (Wo rk) Scheduled Procedures Name [...] documented as of this encounter Care Teams Pressurizer Relationship Specialty Start Date End Date Annemarie Montiel M.D. PCP - General 04/19/17 [address] [place] [phone] documented as of this encounter
--- OUTSIDE RECORDS SUMMARY | 2022-07-25 09:12 | XMS_ITS | Encounter Summary ---
:1985 Author Organization [facility] Address [address] [place] [address] Care Team Providers Name Role Phone Annemarie Montiel M.D. Primary Care Provider [phone] Encounter Details Date Type Department Care [...] How often do you attend yarsani or sikh Never 07/04/2019 services? 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 [address] [place] [phone] (Wo rk) Scheduled Procedures Name [...] documented as of this encounter Care Teams Asic Verification Engineer Relationship Specialty Start Date End Date Annemarie Montiel M.D. PCP - General 04/19/17 [address], [place] [address] documented as of this encounter
--- OUTSIDE RECORDS SUMMARY | 2022-07-25 09:12 | XMS_ITS | Encounter Summary ---
:1985 Author Organization [facility] Address [address] [place] [address] Care Team Providers Name Role Phone Annemarie Montiel M.D. Primary Care Provider [phone] Encounter Details Date Type Department Care Team Description 10/17/2018 Clinical Communication Department of Maisha Song, Medicine, Porfirio Jaramillo [facility], in [facility] [address] [place], [place] [address] [place] [address] [place], [place] [phone] (Wo rk) [address] [phone] Social History Tobacco Use Types Packs/Day Years [...] How often do you attend lutheran or orthodoxy Never 07/04/2019 services? 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 - 10/22/2018 11:48 AM MERCURY WASHER Pt has review portal message. URY WASHER Telephone Encounter - Belinda Rudea C.M.A. - 10/17/2018 4:04 PM MERCURY WASHER Left message for pt to check her portal. Dr. Montiel has sent a portal message about this issue. URY WASHER Telephone Encounter - Denise Bhatia - 10/17/2018 1:06 PM CST Reason for Communication: Discuss lab results Current Can Nursing/Provider leave a detailed message: yes Did the patient refuse triage through Nurse line? (for symptom based concerns)NA Action Needed: Patient had labs done yesterday and would like to discuss her next course of action. Name of Medication (if relevant): URY WASHER documented in this encounter Plan of Treatment Upcoming Encounters Date Type Specialty Care Team Description 08/17/2022 Procedure visit Neurology Marina Winter M.D., M.P.H. [address] [place] [phone] (Wo rk) Scheduled Procedures Name Priority Associated Diagnoses Date/Time LIFT THIGH Excessive And Redundant Skin And Subcutaneous Tissue documented as of this encounter Visit Diagnoses Not on filedocumented in this encounter Additional Health Concerns Assessment Noted Time PHQ-9 Depression Total Score: 15 10/16/2018 11:[address] documented as of this encounter Care Teams Solar Project Coordination Specialist Relationship Specialty Start Date End Date Annemarie Montiel M.D. PCP - General 04/19/17 [address] [place] [phone] documented as of this encounter
--- OUTSIDE RECORDS SUMMARY | 2022-07-25 09:12 | XMS_ITS | Encounter Summary ---
:1985 Author Organization [facility] Address [address] [place] [address] Care Team Providers Name Role Phone Annemarie Montiel M.D. Primary Care Provider [phone] Reason for Visit Reason Onset Date Comments Appointment 02/26/2019 Encounter Details Date Type Department Care Team Description 02/26/2019 Clinical Communication Department of Maisha Song, Appointment Medicine, Porfirio Jaramillo [facility], in [facility] [address] [place], [place] [address] [place], [place] [phone] (Wo rk) [address] [phone] Social History Tobacco Use Types Packs/Day Years [...] 03/29/2020 relatives? How often do you attend roman catholic or cheondoism Never 07/04/2019 services? 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 [address] [phone] (Wo rk) Scheduled Procedures Name Priority Associated Diagnoses Date/Time LIFT THIGH Excessive And Redundant Skin And Subcutaneous Tissue documented as of this encounter Visit Diagnoses Not on filedocumented in this encounter Additional Health Concerns Assessment Noted Time PHQ-9 Depression Total Score: 13 01/16/2019 3:01 PM CD T documented as of this encounter Care Teams Sales Account Representative Relationship Specialty Start Date End Date Annemarie Montiel M.D. PCP - General 04/19/[address] [phone] documented as of this encounter
--- OUTSIDE RECORDS SUMMARY | 2022-07-25 09:12 | XMS_ITS | Encounter Summary ---
:1985 Author Organization [facility] Address [address] [place] [address] Care Team Providers Name Role Phone Annemarie Montiel M.D. Primary Care Provider [phone] Reason for Referral Outpatient (Routine) - Closed Specialty Diagnoses / Procedures Referred By Contact Refer red To Contact Family Annemarie Toure M.D. [facility] Region [address] [place] [address] Referral ID Status Reason Start Date Expiration Date Visits Requ ested Visits Authorized [id number] Closed 11/20/2018 11/20/2019 1 1 NG PAINTER Reason for Visit Reason Comments Follow-up 1 month medication Appointment Request (Routine) - Closed Specialty Diagnoses / Procedures Referred By Contact Refer red To Contact Family Medicine Referral ID Status Reason Start Date Expiration Date Visits Requ ested Visits Authorized [id number] Closed 10/16/2018 10/16/2019 1 Encounter Details Date Type Department Care Team Description 11/20/2018 Office Visit Department of Annemarie Song, Surgery Bariatric Status Post (Primary Dx); Porfirio Valdes M.D. Depression Major Recurrent (HCC); Clinic, in [facility] [address] Anxiety Generalized Disorder; [place], [place] Screening For Venereal Disea se [address] [address] [place], [place] [phone] (Wo rk) [address] [phone] Social History Tobacco Use Types Packs/Day Years [...] How often do you attend amish or yazidism Never 07/04/2019 services? 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 documented as of this encounter Last Filed Vital Signs Vital Sign Reading Time Taken Comments Blood Pressure 118/78 11/20/2018 3:58 PM FOXING PAINTER Pulse 72 11/20/2018 3:58 PM FOXING PAINTER Temperature 36.1 ??C (97 ??F) 11/20/2018 3:58 PM FOXING PAINTER Respiratory Rate - - Oxygen Saturation - - Inhaled Oxygen Concentration - - Weight 100 kg (220 lb 7.4 oz) 11/20/2018 3:58 PM FOXING PAINTER Height - - Body Mass Index 35.64 10/31/2018 8:59 AM FOXING PAINTER documented in this encounter Progress Notes Annemarie [...] bariatric surgery [gastric sleeve 08/2018 while in [place]] andwas overdue for follow-up. Vitamin D, BMP, [...] The patient has contacted Bariatric Surgery in [place] and has an appointment scheduled. Furthermore; the [...] will continue to work with our registered respiratory therapist and has an appoi ntment on the books to establish with Bariatric Surgery in [place]. ?? #3. Screening for veneral disease. PLAN: [...] their behalf by Lidia huertas trained medical staff credentialing coordinator. The creation of this record is basedon the scribe's personal observations and the provider's statements to them. This document has been c hecked and approved by the attending provider. NG PAINTER documented in this encounter Plan of Treatment Upcoming Encounters Date Type Specialty Care Team Description 08/17/2022 Procedure visit Neurology Marina Winter M.D., M.P.H. [address] [phone] (Wo rk) Scheduled Procedures Name Priority Associated Diagnoses Date/Time LIFT THIGH Excessive And Redundant Skin And Subcutaneous Tissue Scheduled Referrals Name Type Priority Associated Diagnoses Order [facility] Family Medicine Outpatient Referral Routine Expec heaven: office visit 01/18/2019 (clinic) (Approximate), Expires: 11/20/2021 documented as of this encounter Procedures Procedure Name Priority Date/Time Associated Diagnosis Comme nts CHLAMYDIA/GONORRHOE Routine 11/20/2018 4:57 PM Screening For R esults for this AE AMPLIFIED RNA FOXING PAINTER Venereal Disease procedu re are in the results section. documented in this encounter Results HIV-1 p24 Ag, HIV-1/2 Ab Scrn, P (11/20/2018 4:58 PM FOXING PAINTER) P athologist Signature HIV Ag/Ab Negative Negative 11/25/2018 [facility] Screen, P 7:50 AM FOXING PAINTER [facility] Comment: Negative result does not rule out HIV in fection. If exposure to HIV infection occurred <14 d ays ago, contact the laboratory to request additi on of HIV-1 RNA detection / quantification test. HIV-1 p24 Ag Screen, Negative Negative 11/25/2018 7:50 AM FOXING PAINTER [facility] Comment: Negative result does not rule out HIV in fection. If exposure to HIV infection occurred <14 d ays ago, contact the laboratory to request additi on of HIV-1 RNA detection / quantification test. HIV-1 Ab Screen, P Negative Negative 11/25/2018 7:50 AM [facility] Comment: Negative result does not rule out HIV in fection. If exposure to HIV infection occurred <14 d ays ago, contact the laboratory to request additi on of HIV-1 RNA detection / quantification test. HIV-2 Ab Screen, P Negative Negative 11/25/2018 7:50 AM [facility] Comment: Negative result does not rule out HIV in fection. If exposure to HIV infection occurred <14 d ays ago, contact the laboratory to request additi on of HIV-1 RNA detection / quantification test. Specimen Anatomical Collection Method Collection Time Receive d Time (Source) Location / / Volume Laterality Blood (Blood, 11/20/2018 4:58 PM 11/21/19 Venous) FOXING PAINTER 11:33 AM FOXING PAINTER Annemarie Montiel M.D. LAB MICROBIOLOGY - BLOOD ORD ERABLES Performing Organization Address City/State/ZIP Code Phon e Number [facility]- [address] [place] [phone] [place] [facility] (ABNORMAL) Potassium (11/20/2018 4:58 PM FOXING PAINTER) athologist Signature Potassium, S 3.4 (L) 3.6 - 5.2 11/20/2018 [facility] mmol/L 5:59 PM [facility] Specimen Anatomical Collection Method Collection Time Receive d Time (Source) Location / / Volume Laterality Blood (Blood, 11/20/2018 4:58 PM 11/20/19 5:00 Venous) FOXING PAINTER PM FOXING PAINTER Annemarie Montiel M.D. LAB BLOOD ADD-ON Performing Organization Address City/State/ZIP Code Phon e Number [facility] [address] [place] [address] LAB CBC without Differential (11/20/2018 4:58 PM FOXING PAINTER) athologist Signature Hemoglobin 12.7 11.6 - 11/20/2018 [facility] 15.0 g/dL 5:02 PM [facility] Hematocrit 38.5 35.5 - 11/20/2018 [facility] 44.9 % 5:02 PM [facility] Erythrocytes 4.34 3.92 - 11/20/2018 [facility] 5.13 5:02 PM [facility] x10(12)/L [facility] MCV 88.7 78.2 - 11/20/2018 [facility] 97.9 fL 5:02 PM [facility] RBC Distrib Width 13.8 12.2 - 11/20/2018 [facility] 16.1 % 5:02 PM [facility] Platelet Count 329 157 - 371 11/20/2018 [facility] x10(9)/L 5:02 PM [facility] Leukocytes 7.6 3.4 - 9.6 11/20/2018 [facility] x10(9)/L 5:02 PM [facility] Specimen Anatomical Collection Method Collection Time Receive d Time (Source) Location / / Volume Laterality Blood (Blood, 11/20/2018 4:58 PM 11/20/19 19 5:00 Venous) FOXING PAINTER PM FOXING PAINTER Annemarie Montiel M.D. LAB BLOOD ADD-ON Performing Organization Address City/State/ZIP Code Phon e Number [facility] [address] [place] [address] LAB Vitamin B12 Assay (11/20/2018 4:58 PM [facility]) P athologist Signature Vitamin B12 577 730 - 3127 11/20/2018 [facility] Assay, S ng/L 9:44 PM [facility] Comment: Biotin has been identified by the isidra oneal as a potential interfering substance. ??Higher concentr ations of biotin may be found in multivitamins, hair/nail supple ments, and workout supplements. ??If the result does not [facility] clinical observations, repeat testing after patient refrains fr om the use of supplements for at least 12 hours. Specimen Anatomical Collection Method Collection Time Receive d Time (Source) Location / / Volume Laterality Blood (Blood, 11/20/2018 4:58 PM 11/20/19 19 9:05 Venous) FOXING PAINTER PM FOXING PAINTER Annemarie Montiel M.D. LAB BLOOD ADD-ON Performing Organization Address City/State/ZIP Code Phon e Number [facility]- [address] [place] [address] [facility] Syphilis IgG Antibody with Reflex (11/20/2018 4:58 PM FOXING PAINTER) P athologist Signature Syphilis IgG Negative Negative 11/22/2018 [facility] Ab, S 12:20 PM [facility] Comment: No serologic evidence of exposu re to syphilis. Specimen Anatomical Collection Method Collection Time Receive d Time (Source) Location / / Volume Laterality Blood (Blood, 11/20/2018 4:58 PM 11/21/19 19 Venous) FOXING PAINTER 11:33 AM FOXING PAINTER Annemarie Montiel M.D. LAB BLOOD ADD-ON Performing Organization Address City/State/ZIP Code Phon e Number [facility]- [address] [place], [place] [address] [place] [facility] Chlamydia / Gonorrhoeae Amplified RNA (11/20/2018 4:57 PM FOXING PAINTER) [facility] gist Method Time Signature Source URINE, FIRST 11/21/2018 [facility] VOID 11:52 AM [facility] Chlamydia Negative Negative 11/21/2018 [facility] trachomatis 11:52 AM [facility] [employer] [facility] Comment: ----ADDITIONAL INFORMATION---- This report is intended for use in clini lori monitoring and management of patients. It is not in tended for use in medical-legal applications. Source URINE, FIRST VOID 11/21/2018 11:52 AM [facility] [place] [facility] Neisseria Negative Negative 11/21/2018 11:52 AM [facility] gonorrhoeae [facility]- amplified RNA [place] [facility] Comment: ----ADDITIONAL INFORMATION---- This report is intended for use in clini lori monitoring and management of patients. It is not in tended for use in medical-legal applications. Specimen Anatomical Collection Method Collection Time Receive d Time (Source) Location / / Volume Laterality Varies 11/20/2018 4:57 PM 9 7:14 (Cervix/Endocerv FOXING PAINTER PM FOXING PAINTER ix) Annemarie Montiel M.D. LAB MICROBIOLOGY - GENERAL O CLARISSA Performing Organization Address City/State/ZIP Code Phon e Number [facility] [address] [place] [address] LAB documented in this encounter Visit Diagnoses Diagnosis Surgery Bariatric Status Post - Primary Depression Major Recurrent (HCC) Anxiety Generalized Disorder Screening For Venereal Disease documented in this encounter Additional Health Concerns Assessment Noted Time PHQ-9 Depression Total Score: 18 11/01/2018 8:11 AM CS T documented as of this encounter Care Teams Grocery Store Courtesy Clerk Relationship Specialty Start Date End Date Annemarie Montiel M.D. PCP - General 04/19/17 [address], [place] [address] documented as of this encounter
--- OUTSIDE RECORDS SUMMARY | 2022-07-25 09:12 | XMS_ITS | Encounter Summary ---
:1985 Author Organization [facility] Address [address] [place] [address] Care Team Providers Name Role Phone Annemarie Montiel M.D. Primary Care Provider [phone] Reason for Visit Reason Onset Date Comments Depression 07/28/2019 PHQ9 Follow up - 2nd Attempt Encounter Details Date Type Department Care Team Description 07/28/2019 Clinical Department of Annemarie Montiel Depression (PHQ9 Communication Family MedicineNadia M.D. Follow up - 2nd [facility], [address]) [facility] [address] [phone] [place], [place] (Work) [address] Social History Tobacco Use [...] How often do you attend mormon or gnosticism Never 07/04/2019 services? 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 documented in this encounter Plan of Treatment Upcoming Encounters Date Type Specialty Care Team Description 08/17/2022 Procedure visit Neurology Marina Winter M.D., M.P.H. [address] [place], [place] [phone] (Wo rk) Scheduled Procedures Name Priority Associated Diagnoses Date/Time LIFT THIGH Excessive And Redundant Skin And Subcutaneous Tissue documented as of this encounter Visit Diagnoses Not on filedocumented in this encounter Additional Health Concerns Assessment Noted Time PHQ-9 Depression Total Score: 11 03/25/2019 1:49 PM CD T documented as of this encounter Care Teams Internal Affairs Investigator Relationship Specialty Start Date End Date Annemarie Montiel M.D. PCP - General 04/19/17 [address] [place] [address] documented as of this encounter
--- OUTSIDE RECORDS SUMMARY | 2022-07-25 09:12 | XMS_ITS | Encounter Summary ---
:1985 Author Organization [facility] Address [address] [place] [address] Care Team Providers Name Role Phone Annemarie Montiel M.D. Primary Care Provider [phone] Encounter Details Date Type Department Care Team Description 01/17/2019 Clinical Communication Department of Maisha Song, Medicine, Porfirio Jaramillo [facility], in [facility] [place] [address] [place], [place] [address] [place] [address] [place], [place] [phone] (Wo rk) [address] [phone] Social History Tobacco Use Types Packs/Day Years [...] How often do you attend uatsdin or voodoo Never 07/04/2019 services? 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 [address] [place], [place] [phone] (Wo rk) Scheduled Procedures Name Priority Associated Diagnoses Date/Time LIFT THIGH Excessive And Redundant Skin And Subcutaneous Tissue documented as of this encounter Visit Diagnoses Not on filedocumented in this encounter Additional Health Concerns Assessment Noted Time PHQ-9 Depression Total Score: 13 01/16/2019 3:01 PM CD T documented as of this encounter Care Teams Vfx Artist Relationship Specialty Start Date End Date Annemarie Montiel M.D. PCP - General 04/19/[address] [place] [address] documented as of this encounter
--- OUTSIDE RECORDS SUMMARY | 2022-07-25 09:12 | XMS_ITS | Encounter Summary ---
:1985 Author Organization [facility] Address [address] [place] [address] Care Team Providers Name Role Phone Annemarie Monitel M.D. Primary Care Provider [phone] Reason for Visit Reason Comments Headache Encounter Details Date Type Department Care Team Description 03/05/2019 - Emergency [facility] Headache (Primary Dx) 03/06/2019 [address] [place] [address] Social History Tobacco Use Types Packs/Day [...] often do you attend latter day or yazidi Never 07/04/2019 services? 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 [address] [phone] (Wo rk) Scheduled Procedures Name Priority Associated Diagnoses Date/Time LIFT THIGH Excessive And Redundant Skin And Subcutaneous Tissue documented as of this encounter Visit Diagnoses Diagnosis Headache Unspecified - Primary documented in this encounter Additional Health Concerns Assessment Noted Time PHQ-9 Depression Total Score: 13 01/16/2019 3:01 PM CD T documented as of this encounter Care Teams Gallery Intern Relationship Specialty Start Date End Date Annemarie Montiel M.D. PCP - General 04/19/[address] [phone] documented as of this encounter
--- OUTSIDE RECORDS SUMMARY | 2022-07-25 09:12 | XMS_ITS | Encounter Summary ---
:1985 [address] [facility] Address [address] [place] [address] Care Team Providers Name Role Phone Annemarie Montiel M.D. Primary Care Provider [phone] Encounter Details Date Type Department Care Team Description 07/19/2019 Orders Only [facility] - Annemarie Ramirez M.D. [address] [facility], [place] [address] [place] [address] [facility] [address] [phone] Social History Tobacco Use Types Packs/Day Years [...] How often do you attend catholic or amish Never 07/04/2019 services? 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 [address] [place], [place] [phone] (Wo rk) Scheduled Procedures Name Priority Associated Diagnoses Date/Time LIFT THIGH Excessive And Redundant Skin And Subcutaneous Tissue documented as of this encounter Visit Diagnoses Not on filedocumented in this encounter Additional Health Concerns Assessment Noted Time PHQ-9 Depression Total Score: 11 03/25/2019 1:49 PM CD T documented as of this encounter Care Teams Engine Monitor Relationship Specialty Start Date End Date Annemarie Montiel M.D. PCP - General 04/19/[address] [place] [address] documented as of this encounter
--- OUTSIDE RECORDS SUMMARY | 2022-07-25 09:12 | XMS_ITS | Encounter Summary ---
:1985 Author Organization [facility] Address [address] [place] [address] Care Team Providers Name Role Phone Annemarie Montiel M.D. Primary Care Provider [phone] Reason for Visit Reason Comments Consult discuss tummy tuck and arms Outpatient (Routine) - Closed Specialty Diagnoses / Procedures Referred By Contact Refer red To Contact Plastic Surgery Diagnoses Skin Redundancy Annemarie Montiel M.D. [facility] Region [address] [place] [address] Referral ID Status Reason Start Date Expiration Date Visits Requ ested Visits Authorized [id number] Closed 03/25/2019 03/24/2020 1 1 Encounter Details Date Type Department Care Team Description 04/02/2019 Comprehensive Visit Department of Harris Chavez Abdominal (Primary Dx); Plastic Surgery in [place] Skin Redundancy [place], [place] [address], [address] [phone] Social History Tobacco Use Types Packs/Day Years [...] How often do you attend anglican or alevism Never 07/04/2019 services? 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 [address] [place], [place] [phone] (Wo rk) Scheduled Procedures Name Priority Associated Diagnoses Date/Time LIFT THIGH Excessive And Redundant Skin And Subcutaneous Tissue documented as of this encounter Visit Diagnoses Diagnosis Pannus Abdominal - Primary Skin Redundancy documented in this encounter Additional Health Concerns Assessment Noted Time PHQ-9 Depression Total Score: 11 03/25/2019 1:49 PM CD T documented as of this encounter Care Teams Occupational Medicine Officer Relationship Specialty Start Date End Date Annemarie Montiel M.D. PCP - General 04/19/[address] [phone] documented as of this encounter
--- OUTSIDE RECORDS SUMMARY | 2022-07-25 09:12 | XMS_ITS | Encounter Summary ---
:1985 Author Organization [facility] Address [address] [place] [address] Care Team Providers Name Role Phone Annemarie Montiel M.D. Primary Care Provider [phone] Reason for Referral Outpatient (Routine) - Closed Specialty Diagnoses / Procedures Referred By Contact Refer red To Contact Diagnoses Depression Major Recurrent (HCC) Anxiety Generalized Disorder Annemarie Montiel M.D. [address] [address] Referral ID Status Reason Start Date Expiration Date Visits Requ ested Visits Authorized [id number] Closed Other 03/25/2019 03/24/2020 1 1 Outpatient (Routine) - Closed Specialty Diagnoses / Procedures Referred By Contact Refer red To Contact Plastic Surgery Diagnoses Skin Redundancy Annemarie Montiel M.D. [facility] [address] [address] Referral ID Status Reason Start Date Expiration Date Visits Requ ested Visits Authorized [id number] Closed 03/25/2019 03/24/2020 1 1 Reason for Visit Reason Comments Follow-up 6 Weeks for medication revie w Appointment Request (Routine) - Closed Specialty Diagnoses / Procedures Referred By Contact Refer red To Contact Family Medicine Referral ID Status Reason Start Date Expiration Date Visits Requ ested Visits Authorized [id number] Closed 01/17/2019 01/17/2020 1 Encounter Details Date Type Department Care Team Description 03/25/2019 Office Visit Department of Family ClubAnnemarie lainez, Depression Major Recurrent (HCC) (Primary Dx); Porfirio Valdes M.D. Anxiety Generalized Disorder; Clinic, in [place], [address] Skin Redundancy; [place], [place] Surgery Bariatric Status Pos t [address] [address] [place] [phone] (Wo rk) [address] [phone] Social History Tobacco Use Types Packs/Day Years [...] How often do you attend jain or scientologist Never 07/04/2019 services? 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 - 03/25/2019 2:[address] Harris Chavez to discuss excess skin For cognitive therapy [facility]: Doctor in [place], [place] Address: [address], [place] [address] documented in this encounter Progress Notes Annemarie [...] her. Maria Alejandra will be starting at [employer] tomorrow. She will only been working limited hours since she is still struggling with her multiple health concerns and other stressors. She is requesting an updated letter in support of limited work hours. The patient underwent bariatric surgery while she was living in [place] in August 2018. She has lost a [...] Take 325 mg by mouth daily. ??? wlixsitsqjwl-Xe-jrgx-minerals (MULTIPLE VITAMIN, WOMENS) tablet Take 1 tablet [...] PLAN: Encouraged her to establish with a slip sheeter familiar with bariatric surgery. This document serves as a record of services personally performed by Annemarie Motniel MD. It was created on their behalf by Iman huertas trained clinical laboratory medical director. The creation of this record is based on the scribe's personal observations and the provider's statements to them. This document has been checked and approved by the attending provider. documented in this encounter Plan of Treatment Upcoming Encounters Date Type Specialty Care Team Description 08/17/2022 Procedure visit Neurology Marina Winter M.D., M.P.H. [address] [place], [place] [phone] (Wo rk) Scheduled [...] documented as of this encounter Care Teams Adjunct Instructor Relationship Specialty Start Date End Date Annemarie Montiel M.D. PCP - General 04/19/17 [address] [place] [address] documented as of this encounter
--- OUTSIDE RECORDS SUMMARY | 2022-07-25 09:12 | XMS_ITS | Encounter Summary ---
:1985 Author Organization [facility] Address [address] [place] [address] Care Team Providers Name Role Phone Annemarie Montiel M.D. Primary Care Provider [phone] Reason for Visit Reason Comments Med Refill Encounter Details Date Type Department Care Team Description 01/17/2019 Refill Department of Yenifer Song M.D. Med Refill Medicine, [facility], [address] [place] [address] [address] [place] [address] [facility] [phone] Social History Tobacco Use Types Packs/Day Years [...] How often do you attend alevism or sikhism Never 07/04/2019 services? 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 Medication: mirtazapine Strength: 15 mg disintegrating tab Frequency: Take 1 tab PO at bedtime Pharmacy: [facility] Comment: documented in this encounter Plan of Treatment Upcoming Encounters Date Type Specialty Care Team Description 08/17/2022 Procedure visit Neurology Marina Winter M.D., M.P.H. [address] [place] [phone] (Wo rk) Scheduled Procedures Name Priority Associated Diagnoses Date/Time LIFT THIGH Excessive And Redundant Skin And Subcutaneous Tissue documented as of this encounter Visit Diagnoses Not on filedocumented in this encounter Additional Health Concerns Assessment Noted Time PHQ-9 Depression Total Score: 13 01/16/2019 3:01 PM CD T documented as of this encounter Care Teams Dynamics Ax Technical Architect Relationship Specialty Start Date End Date Annemarie Montiel M.D. PCP - General 04/19/172199 [address] [address] documented as of this encounter
--- OUTSIDE RECORDS SUMMARY | 2022-07-25 09:12 | XMS_ITS | Encounter Summary ---
:1985 Author Organization [facility] Address [address] [place] [address] Care Team Providers Name Role Phone Annemarie Montiel M.D. Primary Care Provider [phone] Encounter Details Date Type Department Care Team Description 07/01/2019 Clinical Communication Department of Maisha Song, Medicine, Porfirio Jaramillo [facility], in [facility] [address] [place], [place] [address] [place] [address] [place], [place] [phone] (Wo rk) [address] [phone] Social History Tobacco Use Types Packs/Day Years [...] How often do you attend orthodoxy or catholic Never 07/04/2019 services? 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 [address] [place] [phone] (Wo ) Scheduled Procedures Name Priority Associated Diagnoses Date/Time LIFT THIGH Excessive And Redundant Skin And Subcutaneous Tissue documented as of this encounter Visit Diagnoses Not on filedocumented in this encounter Additional Health Concerns Assessment Noted Time PHQ-9 Depression Total Score: 11 03/25/2019 1:49 PM CD T documented as of this encounter Care Teams Technical Administrative Assistant Relationship Specialty Start Date End Date Annemarie Montiel M.D. PCP - General 04/19/172199 [address] [place] [phone] documented as of this encounter
--- OUTSIDE RECORDS SUMMARY | 2022-07-25 09:12 | XMS_ITS | Encounter Summary ---
:1985 Author Organization [facility] Address [address] [place] [address] Care Team Providers Name Role Phone Annemarie Montiel M.D. Primary Care Provider [phone] Reason for Visit Reason Comments Dysuria sx since yesterday Encounter Details Date Type Department Care Team Description 12/08/2018 Office Visit Urgent Care in [place], Dysuria (Primary Dx) Sagar Monroy M.D. [address] [place] [address] [address] [place], [place] [phone] Social History Tobacco Use Types Packs/Day Years [...] How often do you attend cheondoism or alevism Never 07/04/2019 services? 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 10:53 AM GLUER documented as of this encounter Last Filed Vital Signs Vital Sign Reading Time Taken Comments Blood Pressure 125/63 12/08/2018 11:40 AM GLUER Pulse 97 12/08/2018 11:40 AM GLUER Temperature 36.6 ??C (97.9 ??F) 12/08/2018 11:40 AM GLUER Respiratory Rate - - Oxygen Saturation 98% 12/08/2018 11:40 AM GLUER Inhaled Oxygen Concentration - - Weight 96.1 kg (211 lb 13.8 oz) 12/08/2018 11:40 AM GLUER Height - - Body Mass Index 34.25 10/31/2018 8:59 AM GLUER documented in this encounter Progress Notes [place] M.D. - 12/08/2018 11:45 AM CST CHIEF COMPLAINT / REASON FOR VISIT Maria Aleajndra Gomez is a 33 y.o. female who [...] of this note, please contact the author. R documented in this encounter Plan of Treatment Upcoming Encounters Date Type Specialty Care Team Description 08/17/2022 Procedure visit Neurology Marina Winter M.D., M.P.H. [address] [place], [place] [phone] (Wo rk) Scheduled Procedures Name Priority Associated Diagnoses Date/Time LIFT THIGH Excessive And Redundant Skin And Subcutaneous Tissue documented as of this encounter Procedures Procedure Name Priority Date/Time Associated Comments Diagnosis URINALYSIS WITH STAT 12/08/2018 11:37 Dysuria Results for this MICROSCOPIC IF AM GLUER procedure are in INDICATED, U the results section. MICROSCOPIC AUTOMATED STAT 12/08/2018 11:37 Re sults for this AM GLUER procedure are i n the results section. BACTERIAL CULTURE, STAT 12/08/2018 11:37 Dysuria Resul ts for this AEROBIC + SUSC, URINE AM GLUER proced ure are in the results section. documented in this encounter Results (ABNORMAL) Microscopic Automated (12/08/2018 11:37 AM GLUER) athologist Signature White Blood >100 (A) /hpf 12/08/2018 [facility] Cells 11:59 AM [facility] [employer] LAB Comment: ----REFERENCE VALUE---- Males: 0-3 Females: 0-10 Unknown: 0-10 Red Blood Cells 31-40 (A) 0 - 2 /hpf 12/08/2018 11:59 AM [facility] [employer] [facility]- [facility] LAB Dysmorphic Red Blood <=25 <=25 % 12/08/2018 11:59 AM [facility] SYSTEM- [facility] LAB Hyaline Casts 4-10 /lpf 12/08/2018 11:59 AM [facility] LAB Squamous Cells 11-20 /hpf 12/08/2018 11:59 AM [facility]- [facility] LAB Bacteria Present (A) None Seen 12/08/2018 11:59 AM [facility] GLUER SYSTEM- [facility] LAB Specimen Anatomical Collection Method Collection Time Receive d Time (Source) Location / / Volume Laterality Urine 12/08/2018 11:37 12/08/2018 AM GLUER 11:50 AM GLUER [place] M.D. LAB URINE ORDERABLES Performing Organization Address City/State/ZIP Code Phon e Number [facility] Results [employer] [address] [place] [address] LAB (ABNORMAL) Bacterial Culture, Aerobic + Susc, Urine (12/08/2018 11:37 AM GLUER) [facility] gist Method Time Signature Bacterial With Mixed 12/10/2018 [facility] Culture, carmelo. (A) 7:50 AM [facility] Aerobic, SYSTEM- Urine [place] [facility] Bacterial ESCHERICHIA COLI 12/10/2018 [facility] Culture, >100,000 cfu/mL 7:50 AM [facility] Aerobic, (A) SYSTEM- Urine [place] [facility] Specimen Anatomical Collection Method Collection Time Receive d Time (Source) Location / / Volume Laterality Urine (Urine, 12/08/2018 11:37 12/08/2018 3:28 Midstream) AM GLUER PM GLUER Comment: Specimen Source Site: Urine Organism Antibiotic [...] Organization Address City/State/ZIP Code Phon e Number [facility] [address] [place] [address] LAB (ABNORMAL) Urinalysis with Microscopic if Indicated (12/08/2018 11:37 AM GLUER) P athologist Signature Source Midstream 12/08/2018 [facility] 12:03 PM [facility] Clarity Cloudy (A) Clear 12/08/2018 [facility] 11:59 AM [facility] Color Yellow 12/08/2018 [facility] 11:59 AM [facility] [place] LAB Comment: ----REFERENCE VALUE---- Colorless Yellow [place] Blood Large (A) Negative 12/08/2018 11:59 AM [facility] Nitrite Positive (A) Negative 12/08/2018 11:59 AM [facility] Leukocyte Esterase Large (A) Negative 12/08/2018 11:[address] [facility] LAB Protein 100 (A) mg/dL 12/08/2018 11:59 AM [facility] Comment: ----REFERENCE VALUE---- Negative Trace Glucose Negative Negative mg/dL 12/08/2018 11:59 AM [facility] LAB Ketone 15 (A) Negative mg/dL 12/08/2018 11:59 AM [facility] Bilirubin Negative Negative 12/08/2018 11:59 AM [facility] LAB pH 5.5 5.0 - 8.0 12/08/2018 11:59 AM [facility] LAB Specific [place] 1.018 1.001 - 1.035 12/08/2018 11:59 AM [facility] Urobilinogen 0.2 0.2 - 1.0 12/08/2018 11:59 AM [facility] Specimen Anatomical Collection Method Collection Time Receive d Time (Source) Location / / Volume Laterality Urine (Urine, 12/08/2018 11:37 12/08/2018 Clean Catch) AM GLUER 11:50 AM GLUER [place] M.D. LAB URINE ORDERABLES Performing Organization Address City/State/ZIP Code Phon e Number [facility] [address] [place] [address] LAB documented in this encounter Visit Diagnoses Diagnosis Dysuria - Primary documented in this encounter Additional Health Concerns Assessment Noted Time PHQ-9 Depression Total Score: 18 11/01/2018 8:11 AM CS T documented as of this encounter Care Teams Passenger Car Cleaning Supervisor Relationship Specialty Start Date End Date Annemarie Montiel M.D. PCP - General 04/19/172199 [place] [address] documented as of this encounter
--- OUTSIDE RECORDS SUMMARY | 2022-07-25 09:12 | XMS_ITS | Encounter Summary ---
:1985 Author Organization [facility] Address [address] [place] [address] Care Team Providers Name Role Phone Annemarie Montiel M.D. Primary Care Provider [phone] Encounter Details Date Type Department Care Team Description 10/16/2018 Orders Only Department of Annemarie Song, Surgery Bariatric Medicine, Porfirio Jaramillo Status Post (Primary Clinic, in [place], [address] Dx) [place], [place] [address] [address] [place], [place] [phone] (Wo rk) [address] [phone] Social History Tobacco Use Types Packs/Day Years [...] How often do you attend adventist or moravian Never 07/04/2019 services? 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 [address] [place], [place] [phone] (Wo rk) Scheduled Procedures Name Priority Associated Diagnoses Date/Time LIFT THIGH Excessive And Redundant Skin And Subcutaneous Tissue documented as of this encounter Visit Diagnoses Diagnosis Surgery Bariatric Status Post - Primary documented in this encounter Additional Health Concerns Assessment Noted Time PHQ-9 Depression Total Score: 15 10/16/2018 11:[address] documented as of this encounter Care Teams Mental Retardation Nurse Relationship Specialty Start Date End Date Annemarie Montiel M.D. PCP - General 04/19/172199 [address] [address] documented as of this encounter
--- OUTSIDE RECORDS SUMMARY | 2022-07-25 09:12 | XMS_ITS | Encounter Summary ---
:1985 Author Organization [facility] Address [address] [place] [address] Care Team Providers Name Role Phone Annemarie Montiel M.D. Primary Care Provider [phone] Encounter Details Date Type Department Care Team Description 10/16/2018 Hospital Encounter Department of Annemarie Montiel Surg nick Bariatric Laboratory Medicine Ella Zuniga Status Post in [facility] [address] [place], [place] [address] [facility] [address] [place], [place] [phone] [address] (Work) [phone] Social History Tobacco Use Types Packs/Day Years [...] How often do you attend zoroastrian or methodist Never 07/04/2019 services? 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 10:53 AM HOSTAGE NEGOTIATOR documented as of this encounter Medications at [...] back and improving her diet in general. Nicki Montiel MD AGE NEGOTIATOR documented in this encounter Plan of Treatment Upcoming Encounters Date Type Specialty Care Team Description 08/17/2022 Procedure visit Neurology Marina Winter M.D., M.P.H. [address] [place], [place] [phone] (Wo rk) Scheduled Procedures Name Priority Associated Diagnoses Date/Time LIFT THIGH Excessive And Redundant Skin And Subcutaneous Tissue documented as of this encounter Procedures Procedure Name Priority Date/Time Associated Diagnosis Comme nts 25-HYDROXYVITAMIN Routine 10/16/2018 12:52 PM Surgery Bariatri c Results for this D2 AND D3, S HOSTAGE NEGOTIATOR Status Post procedure are i n the results section. CBC WITHOUT Routine 10/16/2018 12:52 PM Surgery Bariatric Res ults for this DIFFERENTIAL, B HOSTAGE NEGOTIATOR Status Post procedure ar e in the results section. THYROID-STIMULATING Routine 10/16/2018 12:52 PM Surgery Bariat christ Results for this HORMONE-SENSITIVE HOSTAGE NEGOTIATOR Status Post procedure are in (S-TSH) the results section. MAGNESIUM, S Routine 10/16/2018 12:52 PM Surgery Bariatric Res ults for this HOSTAGE NEGOTIATOR Status Post procedure are i n the results section. FERRITIN, S Routine 10/16/2018 12:52 PM Surgery Bariatric Res ults for this HOSTAGE NEGOTIATOR Status Post procedure are i n the results section. VITAMIN B12 ASSAY, Routine 10/16/2018 12:52 PM Surgery Bariatr ic Results for this S HOSTAGE NEGOTIATOR Status Post procedure are i n the results section. BASIC METABOLIC Routine 10/16/2018 12:52 PM Surgery Bariatric Results for this PANEL, S/P HOSTAGE NEGOTIATOR Status Post procedure are i n the results section. documented in this encounter Results Magnesium (10/16/2018 12:52 PM HOSTAGE NEGOTIATOR) athologist Signature Magnesium, S 1.7 1.7 - 2.3 10/16/2018 [facility] mg/dL 2:57 PM [facility] Specimen Anatomical Collection Method Collection Time Receive d Time (Source) Location / / Volume Laterality Blood (Blood, 10/16/2018 12:52 10/16/2018 1:29 Venous) PM HOSTAGE NEGOTIATOR PM HOSTAGE NEGOTIATOR Annmearie Montiel M.D. LAB BLOOD ADD-ON Performing Organization Address City/State/ZIP Code Phon e Number [facility] [employer] [address] [place] [address] LAB CBC without Differential (10/16/2018 12:52 PM HOSTAGE NEGOTIATOR) athologist Signature Hemoglobin 14.0 11.6 - 10/16/2018 [facility] 15.0 g/dL 1:33 PM [facility] [employer] LAB Hematocrit 41.2 35.5 - 10/16/2018 [facility] 44.9 % 1:33 PM [facility] LAB Erythrocytes 4.72 3.92 - 10/16/2018 [facility] 5.13 1:33 PM [facility] x10(12)/L [facility] LAB MCV 87.3 78.2 - 10/16/2018 [facility] 97.9 fL 1:33 PM [facility] LAB RBC Distrib Width 14.3 12.2 - 10/16/2018 [facility] 16.1 % 1:33 PM [facility] LAB Platelet Count 255 157 - 371 10/16/2018 [facility] x10(9)/L 1:33 PM [facility] LAB Leukocytes 8.3 3.4 - 9.6 10/16/2018 [facility] x10(9)/L 1:33 PM [facility] LAB Specimen Anatomical Collection Method Collection Time Receive d Time (Source) Location / / Volume Laterality Blood (Blood, 10/16/2018 12:52 10/16/2018 1:29 Venous) PM HOSTAGE NEGOTIATOR PM HOSTAGE NEGOTIATOR Annemarie Montiel M.D. LAB BLOOD ADD-ON Performing Organization Address City/[facility] Phon e Number [facility] [address], [place] [address] LAB Ferritin (10/16/2018 12:52 PM HOSTAGE NEGOTIATOR) P athologist Signature Ferritin, S 116 13 - 150 10/16/2018 [facility] mcg/L 2:57 PM [facility] LAB Comment: Biotin has been identified by the isidra oneal as a potential interfering substance. ??Higher concentr ations of biotin may be found in multivitamins, hair/nail supple ments, and workout supplements. ??If the result does not [facility] clinical observations, repeat testing after patient refrains fr om the use of supplements for at least 12 hours. Specimen Anatomical Collection Method Collection Time Receive d Time (Source) Location / / Volume Laterality Blood (Blood, 10/16/2018 12:52 10/16/2018 1:29 Venous) PM HOSTAGE NEGOTIATOR PM HOSTAGE NEGOTIATOR Annemarie Montiel M.D. LAB BLOOD ADD-ON Performing Organization Address City/[facility]/ZIP [facility] Phon e Number [facility] [address], [place] [address] LAB Vitamin B12 Assay (10/16/2018 12:52 PM HOSTAGE NEGOTIATOR) athologist Signature Vitamin B12 438 091 - 8385 10/16/2018 [facility] Assay, S ng/L 4:57 PM [facility] LAB Comment: Biotin has been identified by the isidra oneal as a potential interfering substance. ??Higher concentr ations of biotin may be found in multivitamins, hair/nail supple ments, and workout supplements. ??If the result does not [facility] clinical observations, repeat testing after patient refrains fr om the use of supplements for at least 12 hours. Specimen Anatomical Collection Method Collection Time Receive d Time (Source) Location / / Volume Laterality Blood (Blood, 10/16/2018 12:52 10/16/2018 4:05 Venous) PM HOSTAGE NEGOTIATOR PM HOSTAGE NEGOTIATOR Annemarie Montiel M.D. LAB BLOOD ADD-ON Performing Organization Address City/[facility] Phon e Number [facility] [address] [place] [address] [facility] LAB S-TSH (Thyroid-Stimulating Hormone - Sensitive) (10/16/2018 12:52 PM HOSTAGE NEGOTIATOR) athologist Signature TSH, Sensitive 0.8 0.3 - 4.2 10/16/2018 [facility] mIU/L 2:57 PM [facility] LAB Comment: Biotin has been identified by the isidra oneal as a potential interfering substance. ??Higher concentr ations of biotin may be found in multivitamins, hair/nail supple ments, and workout supplements. ??If the result does not [facility] clinical observations, repeat testing after patient refrains fr om the use of supplements for at least 12 hours. Specimen Anatomical Collection Method Collection Time Receive d Time (Source) Location / / Volume Laterality Blood (Blood, 10/16/2018 12:52 10/16/2018 1:29 Venous) PM HOSTAGE NEGOTIATOR PM HOSTAGE NEGOTIATOR Annemarie Montiel M.D. LAB BLOOD ADD-ON Performing Organization Address City/State/ZIP Code Phon e Number [facility] [place] [address] [place] [address] LAB (ABNORMAL) BMP (Basic Metabolic Panel) (10/16/2018 12:52 PM HOSTAGE NEGOTIATOR) [facility] Time Signature Potassium, S 3.5 (L) 3.6 - 5.2 10/16/2018 [facility] mmol/L 2:57 PM [facility] Sodium, S 146 (H) 135 - 145 10/16/2018 [facility] mmol/L 2:57 PM [facility] Chloride, S 103 98 - 107 10/16/2018 [facility] mmol/L 2:57 PM [facility] Bicarbonate, S 29 22 - 29 10/16/2018 [facility] mmol/L 2:57 PM [facility] Anion Gap 14 7 - 15 10/16/2018 [facility] 2:57 PM [facility] BUN (Blood Urea 5 (L) 6 - 21 10/16/2018 [facility] Nitrogen), S mg/dL 2:57 PM [facility] Creatinine 0.47 (L) 0.59 - 10/16/2018 [facility] 1.04 mg/dL 2:57 PM [facility] eGFR-Non >90 >=60 10/16/2018 [facility] Black/ mL/min/BSA 2:57 PM [facility] [place] LAB Comment: ----ADDITIONAL INFORMATION---- Estimated GFR calculated using the 2009 CKD_EPI creatinine equation. eGFR-Black/ >90 >=60 mL/min/BSA 2017 2:57 PM [facility] LAB Comment: ----ADDITIONAL INFORMATION---- Estimated GFR calculated using the 2009 CKD_EPI creatinine equation. Calcium, Total, S 9.4 8.6 - 10.0 mg/dL 10/16/2018 2 :57 PM [facility] [place] LAB Glucose, S 84 70 - 140 mg/dL 10/16/2018 2:57 PM [facility] LAB Specimen Anatomical Collection Method Collection Time Receive d Time (Source) Location / / Volume Laterality Blood (Blood, 10/16/2018 12:52 10/16/2018 1:29 Venous) PM HOSTAGE NEGOTIATOR PM HOSTAGE NEGOTIATOR Annemarie Montiel M.D. LAB BLOOD ADD-ON Performing Organization Address City/State/ZIP Code Phon e Number [facility] [address] [place] [address] LAB 25-Hydroxyvitamin D2 and D3 (10/16/2018 12:52 PM HOSTAGE NEGOTIATOR) P athologist Signature 25-Hydroxy D2 <4.0 ng/mL 10/18/2018 [facility] 3:01 PM HOSTAGE NEGOTIATOR [address] [facility] 25-Hydroxy D3 33 ng/mL 10/18/2018 [facility] 3:01 PM HOSTAGE NEGOTIATOR [address] [facility] 25-Hydroxy D 33 ng/mL 10/18/2018 [facility] Total 3:01 PM HOSTAGE NEGOTIATOR [address] [facility] Comment: ----REFERENCE VALUE---- 25-HYDROXY D TOTAL (D2+D3) Optimum level s in the healthy population are 20-50, patients with bone disease may benefit from higher levels within this r maria alejandra. ----ADDITIONAL INFORMATION---- This test was developed and its performa nce characteristics determined by [facility] in a manner consistent with CLIA requirements. This test has not been cleared or approved by the [place]. Domin[place] d and Drug Administration. Specimen Anatomical Collection Method Collection Time Receive d Time (Source) Location / / Volume Laterality Blood (Blood, 10/16/2018 12:52 10/17/2018 9:28 Venous) PM HOSTAGE NEGOTIATOR AM HOSTAGE NEGOTIATOR Annemarie Montiel M.D. LAB BLOOD ADD-ON Performing Organization Address City/State/ZIP Code Phon e Number [facility] [address] [place], [place] [address] [facility] documented in this encounter Visit Diagnoses Diagnosis Surgery Bariatric Status Post documented in this encounter Additional Health Concerns Assessment Noted Time PHQ-9 Depression Total Score: 15 10/16/2018 11:[address] documented as of this encounter Care Teams Contact Center Representative Relationship Specialty Start Date End Date Annemarie Montiel M.D. PCP - General 04/19/172199 [place] [address] documented as of this encounter
--- OUTSIDE RECORDS SUMMARY | 2022-07-25 09:12 | XMS_ITS | Encounter Summary ---
:1985 Author Organization [facility] Address [address] [place] [address] Care Team Providers Name Role Phone Annemarie Montiel M.D. Primary Care Provider [phone] Encounter Details Date Type Department Care Team Description 10/30/2018 Clinical Support Department of Yuliana Montiel M.D. [address] [place] [address] Surgery Bariatric Nutrition in [facility] Maria Elena Regalado RDN, LD [address] [place] [phone] Status Post [place], [place] [address] [place] [address] Social History Tobacco Use Types [...] How often do you attend anabaptism or hinduism Never 07/04/2019 services? 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 10:53 AM LENS EDGE GRINDER MACHINE documented as of this encounter Last Filed Vital Signs Vital Sign Reading Time Taken Comments Blood Pressure - - Pulse - - Temperature - - Respiratory Rate - - Oxygen Saturation - - Inhaled Oxygen Concentration - - Weight 104 kg (230 lb 6.1 oz) 10/30/2018 1:25 PM LENS EDGE GRINDER MACHINE Height 167.5 cm (5' 5.95) 10/31/2018 8:59 AM LENS EDGE GRINDER MACHINE Body Mass Index 37.25 10/30/2018 1:25 PM LENS EDGE GRINDER MACHINE documented in this encounter Patient Instructions Patient InstructionsMaria Elena Smith RDN, LD - 10/30/2018 1:30 PM LENS EDGE GRINDER MACHINE 1.) Look into Breakfast Essentials light start (Canation instant breakfast alternative) for meal replacement option, Boost (Calorie smart) and/or Slim Fast Original ( any flavor) 2.) Try making smoothies with yogurt & fruit 3.) Aim for 90-100 grams of carb per day, ideally 30 grams/day 4.) Flintstones complete multivitamin- recommend 2 tablets per day 5.) Could consider B-complex over-counter supplement as well EDGE GRINDER MACHINE documented in this encounter Progress Notes Maria Elena Smith RDN, LD - 10/30/2018 1:30 PM CST REASON FOR VISIT: Medical nutrition therapy initial visit for s/p bariatric surgery. Referred by: Annemarie Montiel M.D. PRESENT FOR VISIT: Patient was seen today for nutrition education related to s/p gastric sleeve which was on on 07/23/18 in [place]. NUTRITION ASSESSMENT: She reports she is not [...] frustration with guidelines she was provided in [place] and states she was told she shouldn't [...] Time spent with patient (minutes): 45 Minutes EDGE GRINDER MACHINE documented in this encounter Plan of Treatment Upcoming Encounters Date Type Specialty Care Team Description 08/17/2022 Procedure visit Neurology Marina Winter M.D., M.P.H. [address] [place] [phone] (Wo rk) Scheduled Procedures Name Priority Associated Diagnoses Date/Time LIFT THIGH Excessive And Redundant Skin And Subcutaneous Tissue documented as of this encounter Visit Diagnoses Diagnosis Surgery Bariatric Status Post documented in this encounter Additional Health Concerns Assessment Noted Time PHQ-9 Depression Total Score: 15 10/16/2018 11:[address] documented as of this encounter Care Teams Substation Operator Helper Relationship Specialty Start Date End Date Annemarie Montiel M.D. PCP - General 04/19/17 [address] [place] [address] documented as of this encounter
--- OUTSIDE RECORDS SUMMARY | 2022-07-25 09:12 | XMS_ITS | Encounter Summary ---
:1985 Author Organization [facility] Address [address] [place] [address] Care Team Providers Name Role Phone Annemarie Montiel M.D. Primary Care Provider [phone] Reason for Referral Outpatient (Routine) - Closed Specialty Diagnoses / Procedures Referred By Contact Refer red To Contact Family Medicine Diagnoses Depression Major Recurrent (HCC) Anxiety Generalized Disorder Surgery Bariatric Status Post [facility] Fern[facility] M.D. [address] [place] [address] Referral ID Status Reason Start Date Expiration Date Visits Requ ested Visits Authorized [id number] Closed 07/04/2019 07/03/2020 1 1 Reason for Visit Reason Comments Paperwork Appointment Request (Routine) - Closed Specialty Diagnoses / Procedures Referred By Contact Refer red To Contact Family Medicine Referral ID Status Reason Start Date Expiration Date Visits Requ ested Visits Authorized [id number] Closed 07/01/2019 06/30/2020 1 Encounter Details Date Type Department Care Team Description 07/04/2019 Office Visit Department of Annemarie Song Depression Major Recurrent (HCC) (Primary Dx); Medicine, Porfirio Jaramillo Anxiety Generalized Disorder; Clinic, in [place], [address] Surgery Bariatric Status Post [place], [place] [address] [address] [place], [place] [phone] (Wo rk) [address] [phone] Social History Tobacco Use Types Packs/Day Years [...] How often do you attend buddhism or faith Never 07/04/2019 services? 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 10:53 AM PARALEGALS documented as of this encounter Last Filed [...] Montiel M.D. - 07/04/2019 4:15 PM CDT [facility] for cognitive therapy OFFICE LOCATION: [address] [place], [place] [phone] Sunday through Sunday For appointment: Please leave your name and phone number. If you know the therapist you prefer, leave that name as well. You will receive a call back to schedule an appointment. Available Therapists: Sophia Winter, PARAMJIT Flynn, PARAMJIT Epstein, HOUSEKEEPER CLEANING COOKING Alexandra Early, [facility] Tisha Ochoa, [facility] Azalea Reyes, PATIENT REGISTRATION SPECIALIST, HIGH SPEED WARPER TENDER Heidi Meyer MA, Clinical Counseling documented in this encounter Progress Notes Annemarie Montiel M.D. - 07/04/2019 4:15 PM CDT SUBJECTIVE CHIEF COMPLAINT / REASON FOR VISIT Work note. HISTORY OF PRESENT ILLNESS Maria Alejandra Gomez is a 34 y.o. female who presents to the clinic today for a work note. 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 She is comfortable with 15 hours a week on her work note. She is wondering if she can increase herPaxil to 60 mg. Also, she wants to start a migraine medication. Maria Alejandra notes that the Desk Manager is unsure what to help her with [...] Take 325 mg by mouth daily. ??? ydbvbrmpavxu-Ex-bwcl-minerals (MULTIPLE VITAMIN, WOMENS) tablet Take 1 tablet [...] symptoms PLAN:Medical opinion form is completed for [facility]. Recommended that she establish with therapy and did provide information for [facility]. - PARoxetine (PAXIL) 40 mg tablet; [...] on their behalf by Kaity huertas trained emergency medical tech. The creation of this record is based on the scribe's personal observations and the provider's statements to them. This document has been checked and approved by the attending provider. documented in this encounter Plan of Treatment Upcoming Encounters Date Type Specialty Care Team Description 08/17/2022 Procedure visit Neurology Marina Winter M.D., M.P.H. [address] [phone] (Wo rk) Scheduled Procedures Name Priority Associated Diagnoses Date/Time LIFT THIGH Excessive And Redundant Skin And Subcutaneous Tissue Scheduled Referrals Name Type Priority Associated Diagnoses [facility] Outpatient Referral Routine Depression [...] documented as of this encounter Care Teams In Store Representative Relationship Specialty Start Date End Date Annemarie Montiel M.D. PCP - General 04/19/[address] [phone] documented as of this encounter
--- OUTSIDE RECORDS SUMMARY | 2022-07-25 09:12 | XMS_ITS | Encounter Summary ---
:1985 Author Organization [facility] Address [address] [place] [address] Care Team Providers Name Role Phone Annemarie Montiel M.D. Primary Care Provider [phone] Reason for Referral Specialty Diagnoses / Procedures Referred By Contact Refer red To Contact Annemarie Montiel M.D. [facility] [address] [place] [address] Referral ID Status Reason Start Date Expiration Date Visits Requ ested Visits Authorized Scheduling Instructions Maria Elena Monroy VISION AND RADIO REPAIRER Reason for Visit Reason Comments Med Refill Appointment Request (Routine) - Closed Specialty Diagnoses / Procedures Referred By Contact Refer red To Contact Family Medicine Referral ID Status Reason Start Date Expiration Date Visits Requ ested Visits Authorized [id number] Closed 09/09/2018 09/09/2019 1 Encounter Details Date Type Department Care Team Description 10/16/2018 Office Visit Department of Annemarie Song Depression Major Recurrent (HCC) (Primary Dx); MedicinePorfirio M.D. Anxiety Generalized Disorder; Clinic, in [place], [address] Surgery Bariatric Status Post [place], [place] [address] [address] [place], [place] [phone] (Wo rk) [address] [phone] Social History Tobacco Use Types Packs/Day Years [...] How often do you attend uatsdin or mandaen Never 07/04/2019 services? 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 10:53 AM TELEVISION AND RADIO REPAIRER documented as of this encounter Last Filed Vital Signs Vital Sign Reading Time Taken Comments Blood Pressure 128/70 10/16/2018 11:07 AM TELEVISION AND RADIO REPAIRER Pulse 68 10/16/2018 11:07 AM TELEVISION AND RADIO REPAIRER Temperature 36.3 ??C (97.3 ??F) 10/16/2018 11:07 AM TELEVISION AND RADIO REPAIRER Respiratory Rate - - Oxygen Saturation - - Inhaled Oxygen Concentration - - Weight 106 kg (232 lb 12.9 oz) 10/16/2018 11:07 AM TELEVISION AND RADIO REPAIRER Height - - Body Mass Index 37.64 03/27/2018 5:00 PM CDT documented in this encounter Patient Instructions Patient InstructionsClAnnemarie howell M.D. - 10/16/2018 11:15 AM CST Labs today are for Vitamin levels and electrolytes, iron--some patients need shots of B12 I will have results in 3-4 days Set up Disaster Recovery Analyst Appt VISION AND RADIO REPAIRER documented in this encounter Progress Notes Annemarie Montiel M.D. - 10/16/2018 11:15 AM CST SUBJECTIVE CHIEF COMPLAINT / REASON FOR VISIT Medication review. HISTORY OF PRESENT ILLNESS Maria Alejandra Gomez is a 33 y.o. female who presents to the clinic today for a medication review. I last saw the patient on 03/27/2018 when she was about to move to [place]. The patient wanted to return closer to her family and has moved back to [place]. It is noted that she has been struggling and under a lot of stress lately. ,Maria Alejandra reports that upon returning from [place] she has been from her significant other [...] In August 2018 while she was in [place] she underwent a bariatric surgery which went [...] zero follow-up appointments with Bariatric surgery in [place]. Furthermore; she has been experiencing a cough [...] bariatric surgery [gastric sleeve 08/2018 while in [place]]; overdue for follow-up. PLAN: I suspect she [...] their behalf by Lidia huertas trained medical office worker. The creation of this record is basedon the scribe's personal observations and the provider's statements to them. This document has been c hecked and approved by the attending provider. VISION AND RADIO REPAIRER documented in this encounter Plan of Treatment Upcoming Encounters Date Type Specialty Care Team Description 08/17/2022 Procedure visit Neurology Marina Winter M.D., M.P.H. [address] [place], [place] [phone] (Wo rk) Scheduled Procedures Name Priority Associated Diagnoses Date/Time LIFT THIGH Excessive And Redundant Skin And Subcutaneous Tissue Scheduled Referrals Name Type Priority Associated Diagnoses Order S chedule Nutrition - Diet Outpatient Referral Routine Surgery Bariatric Expected: education visit Status Post 10/16/2018 (clinic) (Approximate), Expires: 10/16/2021 documented as of this encounter Results Magnesium (10/16/2018 12:52 PM TELEVISION AND RADIO REPAIRER) P athologist Signature Magnesium, S 1.7 1.7 - 2.3 10/16/2018 [facility] mg/dL 2:57 PM TELEVISION AND RADIO REPAIRER [facility] LAB Specimen Anatomical Collection Method Collection Time Receive d Time (Source) Location / / Volume Laterality Blood (Blood, 10/16/2018 12:52 10/16/2018 1:29 Venous) PM TELEVISION AND RADIO REPAIRER PM TELEVISION AND RADIO REPAIRER Annemarie Montiel M.D. LAB BLOOD ADD-ON Performing Organization Address City/State/ZIP Code Phon e Number [facility] [address] [place] [address] LAB CBC without Differential (10/16/2018 12:52 PM TELEVISION AND RADIO REPAIRER) athologist Signature Hemoglobin 14.0 11.6 - 10/16/2018 [facility] 15.0 g/dL 1:33 PM [facility] LAB Hematocrit 41.2 35.5 - 10/16/2018 [facility] 44.9 % 1:33 PM [facility] LAB Erythrocytes 4.72 3.92 - 10/16/2018 [facility] 5.13 1:33 PM [facility] x10(12)/L [facility] LAB MCV 87.3 78.2 - 10/16/2018 [facility] 97.9 fL 1:33 PM [facility] LAB RBC Distrib Width 14.3 12.2 - 10/16/2018 [facility] 16.1 % 1:33 PM [facility] LAB Platelet Count 255 157 - 371 10/16/2018 [facility] x10(9)/L 1:33 PM [facility] LAB Leukocytes 8.3 3.4 - 9.6 10/16/2018 [facility] x10(9)/L 1:33 PM [facility] LAB Specimen Anatomical Collection Method Collection Time Receive d Time (Source) Location / / Volume Laterality Blood (Blood, 10/16/2018 12:52 10/16/2018 1:29 Venous) PM TELEVISION AND RADIO REPAIRER PM TELEVISION AND RADIO REPAIRER Annemarie Montiel M.D. LAB BLOOD ADD-ON Performing Organization Address City/State/ZIP Code Phon e Number [facility] [address] [place] [address] LAB Ferritin (10/16/2018 12:52 PM TELEVISION AND RADIO REPAIRER) athologist Signature Ferritin, S 116 13 - 150 10/16/2018 [facility] mcg/L 2:57 PM [facility] LAB Comment: Biotin has been identified [...] (Blood, 10/16/2018 12:52 10/16/2018 1:29 Venous) PM TELEVISION AND RADIO REPAIRER PM TELEVISION AND RADIO REPAIRER Annemarie Montiel M.D. LAB BLOOD ADD-ON Performing Organization Address City/[facility]/ZIP Code Phon e Number [facility] [address] [place] [address] LAB Vitamin B12 Assay (10/16/2018 12:52 PM TELEVISION AND RADIO REPAIRER) P athologist Signature Vitamin B12 438 990 - 0565 10/16/2018 [facility] Assay, S ng/L 4:57 PM TELEVISION AND RADIO REPAIRER [facility] LAB Comment: Biotin has been identified [...] (Blood, 10/16/2018 12:52 10/16/2018 4:05 Venous) PM TELEVISION AND RADIO REPAIRER PM TELEVISION AND RADIO REPAIRER Annemarie Montiel M.D. LAB BLOOD ADD-ON Performing Organization Address City/[facility]/ZIP Code Phon e Number [facility] [address] [place] [address] [place] [facility] S-TSH (Thyroid-Stimulating Hormone - Sensitive) (10/16/2018 12:52 PM TELEVISION AND RADIO REPAIRER) P athologist Signature TSH, Sensitive 0.8 0.3 - 4.2 10/16/2018 [facility] mIU/L 2:57 PM TELEVISION AND RADIO REPAIRER [facility] LAB Comment: Biotin has been identified [...] (Blood, 10/16/2018 12:52 10/16/2018 1:29 Venous) PM TELEVISION AND RADIO REPAIRER PM TELEVISION AND RADIO REPAIRER Annemarie Montiel M.D. LAB BLOOD ADD-ON Performing Organization Address City/State/ZIP Code Phon e Number [facility] [address] [place] [address] LAB (ABNORMAL) BMP (Basic Metabolic Panel) (10/16/2018 12:52 PM TELEVISION AND RADIO REPAIRER) Analysis Performed At Patho logist Time Signature Potassium, S 3.5 (L) 3.6 - 5.2 10/16/2018 [facility] mmol/L 2:57 PM [facility] LAB Sodium, S 146 (H) 135 - 145 10/16/2018 [facility] mmol/L 2:57 PM [facility] LAB Chloride, S 103 98 - 107 10/16/2018 [facility] mmol/L 2:57 PM [facility] LAB Bicarbonate, S 29 22 - 29 10/16/2018 [facility] mmol/L 2:57 PM [facility] LAB Anion Gap 14 7 - 15 10/16/2018 [facility] 2:57 PM [facility] LAB BUN (Blood Urea 5 (L) 6 - 21 10/16/2018 [facility] Nitrogen), S mg/dL 2:57 PM [facility] LAB Creatinine 0.47 (L) 0.59 - 10/16/2018 [facility] 1.04 mg/dL 2:57 PM [facility] LAB eGFR-Non >90 >=60 10/16/2018 [facility] Black/ mL/min/BSA 2:57 PM [facility] LAB Comment: ----ADDITIONAL INFORMATION---- Estimated GFR calculated using the 2009 CKD_EPI creatinine equation. eGFR-Black/ >90 >=60 mL/min/BSA 2017 2:57 PM [facility] LAB Comment: ----ADDITIONAL INFORMATION---- Estimated GFR calculated using the 2009 CKD_EPI creatinine equation. Calcium, Total, S 9.4 8.6 - 10.0 mg/dL 10/16/2018 2 :57 PM [facility] LAB Glucose, S 84 70 - 140 mg/dL 10/16/2018 2:57 PM TELEVISION AND RADIO REPAIRER M [facility] LAB Specimen Anatomical Collection Method Collection Time Receive d Time (Source) Location / / Volume Laterality Blood (Blood, 10/16/2018 12:52 10/16/2018 1:29 Venous) PM TELEVISION AND RADIO REPAIRER PM TELEVISION AND RADIO REPAIRER Annemarie Montiel M.D. LAB BLOOD ADD-ON Performing Organization Address City/State/ZIP Code Phon e Number [facility] [address] [place] [address] LAB 25-Hydroxyvitamin D2 and D3 (10/16/2018 12:52 PM TELEVISION AND RADIO REPAIRER) P athologist Signature 25-Hydroxy D2 <4.0 ng/mL 10/18/2018 [facility] 3:01 PM TELEVISION AND RADIO REPAIRER [address] [facility] 25-Hydroxy D3 33 ng/mL 10/18/2018 [facility] 3:01 PM TELEVISION AND RADIO REPAIRER [facility] 25-Hydroxy D 33 ng/mL 10/18/2018 [facility] Total 3:01 PM TELEVISION AND RADIO REPAIRER [address] [facility] Comment: ----REFERENCE VALUE---- 25-HYDROXY D TOTAL (D2+D3) Optimum level s in the healthy population are 20-50, patients with bone disease may benefit from higher levels within this r maria alejandra. ----ADDITIONAL INFORMATION---- This test was developed and its performa nce characteristics determined by [facility] in a manner consistent with CLIA requirements. This test has not been cleared or approved by the [place] d and Drug Administration. Specimen Anatomical Collection Method Collection Time Receive d Time (Source) Location / / Volume Laterality Blood (Blood, 10/16/2018 12:52 10/17/2018 9:28 Venous) PM TELEVISION AND RADIO REPAIRER AM TELEVISION AND RADIO REPAIRER Annemarie Montiel M.D. LAB BLOOD ADD-ON Performing Organization Address City/State/ZIP Code Phon e Number [facility] [address] [place], [place] [address] [facility] documented in this encounter Visit Diagnoses Diagnosis Depression Major Recurrent (HCC) - Prima ry Anxiety Generalized Disorder Surgery Bariatric Status Post documented in this encounter Additional Health Concerns Assessment Noted Time PHQ-9 Depression Total Score: 15 10/16/2018 11:[address] documented as of this encounter Care Teams Control Chemist Relationship Specialty Start Date End Date Annemarie Montiel M.D. PCP - General 04/19/17 [address] [place] [address] documented as of this encounter
--- OUTSIDE RECORDS SUMMARY | 2022-07-25 09:12 | XMS_ITS | Encounter Summary ---
:1985 Author Organization [facility] Address [address] [place] [address] Care Team Providers Name Role Phone Annemarie Montiel M.D. Primary Care Provider [phone] Encounter Details Date Type Department Care Team Description 11/25/2018 Orders Only Department of Family Annemarie Montiel, Surgery Bariatric Status Post (Primary Dx); Medicine, Porfirio Jaramillo Hypokalemia Clinic, in [place] [address] [place], [place] [address] [address] [place], [place] [phone] (Wo rk) [address] [phone] Social History Tobacco Use Types Packs/Day Years [...] How often do you attend buddhist or mormon Never 07/04/2019 services? 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 10:53 AM MUSEUM INFORMATICS SPECIALIST documented as of this encounter Miscellaneous Notes Assessment & Plan Note - Annemarie Montiel M.D. - 11/25/2018 4:22 PM MUSEUM INFORMATICS SPECIALIST Associated Problem(s): Hypokalemia Related to bariatric surgery UM INFORMATICS SPECIALIST documented in this encounter Plan of Treatment Upcoming Encounters Date Type Specialty Care Team Description 08/17/2022 Procedure visit Neurology Marina Winter M.D., M.P.H. [address] [place], [place] [phone] (Wo rk) Scheduled Procedures Name Priority Associated Diagnoses Date/Time LIFT THIGH Excessive And Redundant Skin And Subcutaneous Tissue documented as of this encounter Results Potassium (01/16/2019 2:54 PM CDT) athologist Signature Potassium, S 4.5 3.6 - 5.2 01/16/2019 [facility] mmol/L 4:00 PM CDT [facility] LAB Specimen Anatomical Collection Method Collection Time Receive d Time (Source) Location / / Volume Laterality Blood (Blood, 01/16/2019 2:54 PM 01/17/20 19 2:58 Venous) CDT PM CDT Annemarie Montiel M.D. LAB BLOOD ADD-ON Performing Organization Address City/State/ZIP Code Phon e Number [facility] [address] [place] [address] LAB documented in this encounter Visit Diagnoses Diagnosis Surgery Bariatric Status Post - Primary Hypokalemia documented in this encounter Additional Health Concerns Assessment Noted Time PHQ-9 Depression Total Score: 18 11/01/2018 8:11 AM CS T documented as of this encounter Care Teams Restaurant Hospitality Manager Relationship Specialty Start Date End Date Annemarie Montiel M.D. PCP - General 04/19/[address], [place] [phone] documented as of this encounter
--- OUTSIDE RECORDS SUMMARY | 2022-07-25 09:12 | XMS_ITS | Encounter Summary ---
:1985 Author Organization [facility] Address [address] [place] [address] Care Team Providers Name Role Phone Annemarie Montiel M.D. Primary Care Provider [phone] Reason for Visit Reason Comments Follow-up Depression Anxiety Weight Loss Outpatient (Routine) - Closed Specialty Diagnoses / Procedures Referred By Contact Refer red To Contact Family Medicine Annemarie Montiel M.D. [facility] [address] [place] [address] Referral ID Status Reason Start Date Expiration Date Visits Requ ested Visits Authorized [id number] Closed 11/20/2018 11/20/2019 1 1 Encounter Details Date Type Department Care Team Description 01/16/2019 Office Visit Department of Annemarie Song, Depression Major Recurrent (HCC) (Primary Dx); MedicinePorfirio M.D. Anxiety Generalized Disorder; Clinic, in [place], [address] Surgery Bariatric Status Post; [place], [place] Deficiency Vitamin D [address] [place] [address] [place], [place] [phone] (Wo rk) [address] [phone] Social History Tobacco Use Types Packs/Day Years [...] How often do you attend religion or anabaptism Never 07/04/2019 services? 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 - 01/16/2019 4:00 PM CDT [facility] OFFICE LOCATION: [address] [place] [address] Sunday through Sunday For appointment: documented in [...] - Medical opinion form is completed for [facility]. Given her degree of depression at this time, she is unable to work. Goal to return to work by March 05. Recommended that she establish with therapy and did provide information for [facility]. She will followup in 4-6 weeks [...] their behalf by April huertas trained medical radiation tech. The creation of this record is based on the scribe's personal observations and the provider's statements to them. This document has been latricia cked and approved by the attending provider. documented in this encounter Plan of Treatment Upcoming Encounters Date Type Specialty Care Team Description 08/17/2022 Procedure visit Neurology Marina Winter M.D., M.P.H. [address] [place], [place] [phone] (Wo rk) Scheduled Procedures [...] documented as of this encounter Care Teams Cargo Checker Relationship Specialty Start Date End Date Annemarie Montiel M.D. PCP - General 04/19/[address], [place] [address] documented as of this encounter
--- OUTSIDE RECORDS SUMMARY | 2022-07-25 09:12 | XMS_ITS | Encounter Summary ---
:1985 Author Organization [facility] Address [address] [place] [address] Care Team Providers Name Role Phone Annemarie Montiel M.D. Primary Care Provider [phone] Encounter Details Date Type Department Care Team Description 02/21/2019 Clinical Communication Department of Maisha Song, Medicine, Porfirio Jaramillo [facility], in [facility] [address] [place], [place] [address] [place] [address] [place], [place] [phone] (Wo rk) [address] [phone] Social History Tobacco Use Types Packs/Day Years [...] How often do you attend uatsdin or sikh Never 07/04/2019 services? 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 10:53 AM SLITTER HELPER documented as of this encounter Plan of Treatment Upcoming Encounters Date Type Specialty Care Team Description 08/17/2022 Procedure visit Neurology Marina Winter M.D., M.P.H. [address] [place], [place] [phone] (Wo rk) Scheduled Procedures Name Priority Associated Diagnoses Date/Time LIFT THIGH Excessive And Redundant Skin And Subcutaneous Tissue documented as of this encounter Visit Diagnoses Not on filedocumented in this encounter Additional Health Concerns Assessment Noted Time PHQ-9 Depression Total Score: 13 01/16/2019 3:01 PM CD T documented as of this encounter Care Teams Dope Weigh Operator Relationship Specialty Start Date End Date Annemarie Montiel M.D. PCP - General 04/[address] [place] [address] documented as of this encounter
--- OUTSIDE RECORDS SUMMARY | 2022-07-25 09:12 | XMS_ITS | Encounter Summary ---
:1985 Author Organization [facility] Address [address] [place] [address] Care Team Providers Name Role Phone Annemarie Montiel M.D. Primary Care Provider [phone] Encounter Details Date Type Department Care Team Description 11/20/2018 Hospital Encounter Department of Annemarie Montiel For Venereal Disease; Laboratory Medicine Ella Zuniga Surgery Bariatric Status Post in [facility] 0 [facility] [place], [place] [address] [address] [place], [place] [phone] [address] (Work) [phone] Social History Tobacco Use Types Packs/Day Years [...] How often do you attend adventism or scientologist Never 07/04/2019 services? 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 10:53 AM UNPAID INTERN documented as of this encounter Medications at [...] Nicki Montiel MD Department of Family Medicine [facility] ID INTERN documented in this encounter Plan of Treatment Upcoming Encounters Date Type Specialty Care Team Description 08/17/2022 Procedure visit Neurology Marina Winter M.D., M.P.H. [address] [place] [phone] (Wo rk) Scheduled Procedures Name Priority Associated Diagnoses Date/Time LIFT THIGH Excessive And Redundant Skin And Subcutaneous Tissue documented as of this encounter Procedures Procedure Name Priority Date/Time Associated Diagnosis Comme nts HIV-1 P24 AG, Routine 11/20/2018 4:58 PM Screening For Results for this HIV-1/2 AB SCRN, P UNPAID INTERN Venereal Disease proce dure are in the results section. SYPHILIS TOTAL AB Routine 11/20/2018 4:58 PM Screening For Res ults for this W/ REFLEX S UNPAID INTERN Venereal Disease procedure a re in the results section. CBC WITHOUT Routine 11/20/2018 4:58 PM Surgery Bariatric Resu lts for this DIFFERENTIAL, B UNPAID INTERN Status Post procedure ar e in the results section. POTASSIUM, S/P Routine 11/20/2018 4:58 PM Surgery Bariatric Re sults for this UNPAID INTERN Status Post procedure are i n the results section. VITAMIN B12 ASSAY, Routine 11/20/2018 4:58 PM Surgery Bariatri c Results for this S UNPAID INTERN Status Post procedure are i n the results section. documented in this encounter Results HIV-1 p24 Ag, HIV-1/2 Ab Scrn, P (11/20/2018 4:58 PM UNPAID INTERN) athologist Signature HIV Ag/Ab Negative Negative 11/25/2018 ED [facility] Screen, P 7:50 AM [facility] Temporal [facility]- [facility] Comment: Negative result does not rule out HIV in fection. If exposure to HIV infection occurred <14 d ays ago, contact the laboratory to request additi on of HIV-1 RNA detection / quantification test. HIV-1 p24 Ag Screen, Negative Negative 11/25/2018 7:50 AM [facility] Comment: Negative result does not rule out HIV in fection. If exposure to HIV infection occurred <14 d ays ago, contact the laboratory to request additi on of HIV-1 RNA detection / quantification test. HIV-1 Ab Screen, P Negative Negative 11/25/2018 7:50 AM [facility] Comment: Negative result does not rule out HIV in fection. If exposure to HIV infection occurred <14 d ays ago, contact the laboratory to request additi on of HIV-1 RNA detection / quantification test. HIV-2 Ab Screen, P Negative Negative 11/25/2018 7:50 AM [facility] Comment: Negative result does not rule out HIV in fection. If exposure to HIV infection occurred <14 d ays ago, contact the laboratory to request additi on of HIV-1 RNA detection / quantification test. Specimen Anatomical Collection Method Collection Time Receive d Time (Source) Location / / Volume Laterality Blood (Blood, 11/20/2018 4:58 PM 11/21/19 19 Venous) UNPAID INTERN 11:33 AM UNPAID INTERN Annemarie Montiel M.D. LAB MICROBIOLOGY - BLOOD ORD ERABLES Performing Organization Address City/State/ZIP Code Phon e Number [facility]- [address] [place] [address], [place] [address] [place] [facility] (ABNORMAL) Potassium (11/20/2018 4:58 PM UNPAID INTERN) athologist Signature Potassium, S 3.4 (L) 3.6 - 5.2 11/20/2018 ED [facility] mmol/L 5:59 PM [facility] A[facility]ixNORTH[facility]ST [facility]ICAL [email or web address] LAB Specimen Anatomical Collection Method Collection Time Receive d Time (Source) Location / / Volume Laterality Blood (Blood, 11/20/2018 4:58 PM 11/20/19 19 5:00 Venous) UNPAID INTERN PM UNPAID INTERN Annemarie Montiel M.D. LAB BLOOD ADD-ON Performing Organization Address City/State/ZIP Code Phon e Number [facility] [address] [place] [address] LAB CBC without Differential (11/20/2018 4:58 PM UNPAID INTERN) athologist Signature Hemoglobin 12.7 11.6 - 11/20/2018 ED [facility] 15.0 g/dL 5:02 PM [facility] [employer] LAB Hematocrit 38.5 35.5 - 11/20/2018 ED [facility] 44.9 % 5:02 PM [facility] [employer] LAB Erythrocytes 4.34 3.92 - 11/20/2018 ED [facility] 5.13 5:02 PM [facility] x10(12)/L SYSTEM eziCONEX LAB MCV 88.7 78.2 - 11/20/2018 ED [facility] 97.9 fL 5:02 PM [facility] Food IndustriesA [facility] RBC Distrib Width 13.8 12.2 - 11/20/2018 ED [facility] 16.1 % 5:02 PM [facility] Industries[facility] Platelet Count 329 157 - 371 11/20/2018 ED [facility] x10(9)/L 5:02 PM [facility] [employer] LAB Leukocytes 7.6 3.4 - 9.6 11/20/2018 ED [facility] x10(9)/L 5:02 PM UNPAID INTERN [facility] LAB Specimen Anatomical Collection Method Collection Time Receive d Time (Source) Location / / Volume Laterality Blood (Blood, 11/20/2018 4:58 PM 11/20/19 19 5:00 Venous) UNPAID INTERN PM UNPAID INTERN Annemarie Montiel M.D. LAB BLOOD ADD-ON Performing Organization Address City/State/ZIP Code Phon e Number [facility] [address] [place] [address] LAB Vitamin B12 Assay (11/20/2018 4:58 PM UNPAID INTERN) athologist Signature Vitamin B12 888 463 - 1242 11/20/2018 ED [facility] Assay, S ng/L 9:44 PM UNPAID INTERN [facility] LAB Comment: Biotin has been identified by the isidra oneal as a potential interfering substance. ??Higher concentr ations of biotin may be found in multivitamins, hair/nail supple ments, and workout supplements. ??If the result does not [facility] clinical observations, repeat testing after patient refrains fr om the use of supplements for at least 12 hours. Specimen Anatomical Collection Method Collection Time Receive d Time (Source) Location / / Volume Laterality Blood (Blood, 11/20/2018 4:58 PM 11/20/19 19 9:05 Venous) UNPAID INTERN PM UNPAID INTERN Annemarie Montiel M.D. LAB BLOOD ADD-ON Performing Organization Address City/[facility]/ZIP Code Phon e Number [facility]- [address] [place] [address] [facility] Syphilis IgG Antibody with Reflex (11/20/2018 4:58 PM UNPAID INTERN) athologist Signature Syphilis IgG Negative Negative 11/22/2018 ED [facility] Ab, S 12:20 PM UNPAID INTERN [facility] Comment: No serologic evidence of exposu re to syphilis. Specimen Anatomical Collection Method Collection Time Receive d Time (Source) Location / / Volume Laterality Blood (Blood, 11/20/2018 4:58 PM 11/21/19 19 Venous) UNPAID INTERN 11:33 AM UNPAID INTERN Annemarie Montiel M.D. LAB BLOOD ADD-ON Performing Organization Address City/State/ZIP Code Phon e Number [facility]- [address] [facility] [place], [place] [address] [place] [facility] documented in this encounter Visit Diagnoses Diagnosis Screening For Venereal Disease Surgery Bariatric Status Post documented in this encounter Additional Health Concerns Assessment Noted Time PHQ-9 Depression Total Score: 18 11/01/2018 8:11 AM CS T documented as of this encounter Care Teams Parish Visitor Relationship Specialty Start Date End Date Annemarie Montiel M.D. PCP - General 04/19/[address] [address] documented as of this encounter
--- OUTSIDE RECORDS SUMMARY | 2022-07-25 09:13 | XMS_ITS | Encounter Summary ---
:[address] [facility] Address [address] [place] [address] Care Team Providers Name Role Phone Annemarie Montiel M.D. Primary Care Provider [phone] Encounter Details Date Type Department Care Team Description 09/06/2017 Hospital Encounter HX [facility] Promise Rouse M.D. [address] [place], [place] [phone] (Wo rk) Social History [...] How often do you attend yazidism or scientologist Never 07/04/2019 services? 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 Pelvic: External genitalia, Bartholin, urethral, and [place] glands appear normal. Vaginal secretions are grossly [...] TEJEDA MD On: 09/07/2017 11:26 AM Source: [email or web address] Document Id: [id number] documented in this encounter Miscellaneous Notes Miscellaneous - Shar Tejeda M.D. - 09/07/2017 11:23 AM CDT Ambulatory Patient Summary [facility] [address] [place] [id number] Visit Information Name: NANCY PHILLIPS [facility] Number: [id number] Current Date: 09/07/2017 11:23:36 Physicians [...] [address] [place] [address] [facility] Prescription ([facility] Prescription) Cocunut oil 1000mg tablet daily multivitamin [...] if you dont have one. Go to [email or web address] and click on Create Your Account. Then, follow the directions to complete the online form. Youll be asked for your [facility] number which you can find at the top of this document. Your Goals/Additional instructions: Source: [facility] P[facility] Document Id: [id number] Miscellaneous - Shar Tejdea M.D. - 09/07/2017 11:23 AM CDT Ambulatory Discharge Medication List [address] [id number] Visit Information Name: NANCY PHILLIPS [facility] Number: [id number] Current Date: 09/07/2017 11:23:35 Attending [...] 8 hours x 14 day(s) [facility] [address] [place] [address] [facility] Prescription ([facility] Prescription) Cocunut oil 1000mg tablet [...] MD Signed On:07-SEP-2017 11:23:32 Additional Information: Source: [facility] POWERCHART Document Id: [id number] Miscellaneous - Nusrat Miller L.PRodrigoN. - 09/06/2017 4:48 PM CDT Group Burner Machine Documentation Group Burner Machine Documentation Entered On: 09/06/2017 16:48 CDT Performed On: 09/06/2017 16:48 CDT by NUSRAT MILLER LPN Group Burner Machine Documentation Exam/Procedure Performed : pelvic CD Group Burner Machine Present : Yes Present in Room During Exam/Procedure : Alone, Daughter, Other: friend NUSRAT MILLER LPN - 09/06/2017 16:48 CDT Source: [facility] [employer] Document Id: [id number] CDT!5 Bunny - Shar Tejeda M.D. - 09/06/2017 4:18 PM CDT Results Notification Document Contains Addenda Addendum by RADHA RHOADES on September 06, 2017 16:42:36 CDT patient notified. From: SHAR TEJEDA MD To: OW CONTRACT RUNNER Nurse; Sent: 09/06/2017 16:18:03 CDT ! Show [...] (H) 148 mg/dL ( - <=129) Source: [facility] [employer] Document Id: [id number] Miscellaneous - Laverne Conti L.P.N. 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 Wind Farm Engineer Intake/History Adult Wind Farm Engineer Intake/History Entered On: 09/06/2017 13:18 CDT Performed [...] 09/06/2017 13:17 CDT General Info Languages : Bahraini Is Patient Female and 13-50 no hysterectomy [...] CONTI LPN - 09/06/2017 13:17 CDT [facility] Document Id: [id number] CDT!31 documented in this encounter Plan of Treatment Upcoming Encounters Date Type Specialty Care Team Description 08/17/2022 Procedure visit Neurology Marina Winter M.D., M.P.H. [address] [place], [place] [phone] (Wo rk) Scheduled Procedures [...] for FH and FDB is available kenu [facility] Laboratories: FH/ADH Genetic Reflex [place] el (test ADHP). Acquired (non-genetic) causes of markedly increased LDL cholesterol include cholestatic liver disease due to the presence of LpX. If a genetic form of hypercholesterolemia is suspected, family studies including biochemical testing fo r lipids (total cholesterol,triglycerides, LDL cholesterol and HDL cholesterol) are recommended. ??Please contact the laboratory at or the on-line test catalog at [facility] for information about how to order these [...] documented as of this encounter Care Teams Membership Solicitor Relationship Specialty Start Date End Date Annemarie Montiel M.D. PCP - General 04/19/17 [address] [place] [address] documented as of this encounter
--- OUTSIDE RECORDS SUMMARY | 2022-07-25 09:13 | XMS_ITS | Encounter Summary ---
:1985 Author Organization [facility] Address [address] [place] [address] Care Team Providers Name Role Phone Annemarie Montiel M.D. Primary Care Provider [phone] Encounter Details Date Type Department Care Team Description 05/02/[address] [facility] Leonel Pandya P.ARodrigo -C. [address] [place] [address] (Wo rk) Social History Tobacco [...] How often do you attend denominational or mormon Never 07/04/2019 services? 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 Patient is requesting Phentermine refills to [facility] pharmacy. Patient inquired about Naproxen [...] LÓPEZ RN - 05/02/2017 13:03 CDT Source: [facility] [employer] Document Id: [id number] CDT!17 documented in this encounter Miscellaneous Notes Miscellaneous - Lucia López R.N. - 05/02/2017 1:14 PM CDT BP/wt; Rx request Document Contains Addenda Addendum by STEVE SAMSON LPN on May 02, 2017 14:51:59 CDT faxed to [facility] Addendum by ANNEMARIE MONTIEL MD on May 02, 2017 13:27:40 CDT From: ANNEMARIE MONTIEL MD To: [facility] 2W Nurse; Sent: 05/02/2017 13:27:40 CDT Subject: RE: BP/wt; Rx request Addendum by ANNEMARIE MONTIEL MD on May 02, 2017 13:24:55 CDT Submitted: Order:phentermine (phentermine 37.5 mg oral tablet) 1 tab(s) PO Daily [facility] Qty: 42 tab(s) Refills: 0 Substitutions Allowed Print - [id number] Signed by ANNEMARIE MONTIEL MD 05/02/2017 13:24:40 From: LUCIA LÓPEZ RN ([facility]/Travel Nurse) To: ANNEMARIE MONTIEL MD; Sent: 05/02/2017 13:14:51 CDT Subject: BP/wt; Rx request Patient in for BP/wt check. Please review attached document. Patient requesting phentermine refill sent to [facility] pharmacy. [facility] Document Id: [id number] documented in this encounter Plan of Treatment Upcoming Encounters Date Type Specialty Care Team Description 08/17/2022 Procedure visit Neurology Marina Winter M.D., M.P.H. [address] [place], [place] [phone] (Wo rk) Scheduled Procedures Name Priority Associated Diagnoses Date/Time LIFT THIGH Excessive And Redundant Skin And Subcutaneous Tissue documented as of this encounter Visit Diagnoses Not on filedocumented in this encounter Additional Health Concerns Assessment Noted Time PHQ-9 Depression Total Score: 9 12/27/2016 10:29 AM CS T documented as of this encounter Care Teams Casualty Insurance Claim Adjuster Relationship Specialty Start Date End Date Annemarie Montiel M.D. PCP - General 04/[address] [place] [address] documented as of this encounter
--- OUTSIDE RECORDS SUMMARY | 2022-07-25 09:13 | XMS_ITS | Encounter Summary ---
:1985 Author Organization [facility] Address [address] [place] [address] Care Team Providers Name Role Phone Annemarie Montiel M.D. Primary Care Provider [phone] Encounter Details Date Type Department Care Team Description 09/14/2017 Nurse Triage Department of Nika Iverson, Medicine, [facility], [place] [address] [place] [address] Social History Tobacco Use Types Packs/Day Years [...] often do you attend roman catholic or christian Never 07/04/2019 services? 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 - 09/14/2017 4:38 PM CST Requests treatment for a vaginal yeast infection. Has had a white clumpy vaginal discharge with someinternal itching for 24 hours. NKA to medications. Requests treatment with the pill. Patient was provided aftercare instructions. WRAPPER documented in this encounter Plan of Treatment Upcoming Encounters Date Type Specialty Care Team Description 08/17/2022 Procedure visit Neurology Marina Winter M.D., M.P.H. [address] [phone] (Wo rk) Scheduled Procedures Name Priority Associated Diagnoses Date/Time LIFT THIGH Excessive And Redundant Skin And Subcutaneous Tissue documented as of this encounter Visit Diagnoses Not on filedocumented in this encounter Additional Health Concerns Assessment Noted Time PHQ-9 Depression Total Score: 13 08/21/2017 12:55 PM C DT documented as of this encounter Care Teams Insulation Helper Relationship Specialty Start Date End Date Annemarie Montiel M.D. PCP - General 04/19/[address] [phone] documented as of this encounter
--- OUTSIDE RECORDS SUMMARY | 2022-07-25 09:13 | XMS_ITS | Encounter Summary ---
:1985 Author Organization [facility] Address [address] [place] [address] Care Team Providers Name Role Phone Annemarie Montiel M.D. Primary Care Provider [phone] Reason for Visit Reason Comments Migraine Encounter Details Date Type Department Care Team Description 10/11/2017 - Emergency [facility] Migraine Headache 10/12/[address] (Primary Dx) [facility] [place] [phone] Social History Tobacco Use Types Packs/Day [...] How often do you attend sabianism or orthodoxy Never 07/04/2019 services? 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 [address] [place], [place] [phone] ([facility]) Scheduled Procedures Name Priority Associated Diagnoses Date/Time LIFT THIGH Excessive And Redundant Skin And Subcutaneous Tissue documented as of this encounter Visit Diagnoses Diagnosis Migraine Headache - Primary documented in this encounter Additional Health Concerns Assessment Noted Time PHQ-9 Depression Total Score: 13 08/21/2017 12:55 PM C DT documented as of this encounter Care Teams Vice Provost Relationship Specialty Start Date End Date Annemarie Montiel M.D. PCP - General 04/19/[address] [place] [phone] documented as of this encounter
--- OUTSIDE RECORDS SUMMARY | 2022-07-25 09:13 | XMS_ITS | Encounter Summary ---
:1985 Author Organization [facility] Address [address] [place] [address] Care Team Providers Name Role Phone Annemarie Montiel M.D. Primary Care Provider [phone] Encounter Details Date Type Department Care Team Description 08/03/2017 Hospital Encounter [facility] Promise Rouse M.D. [address] [place], [place] [phone] (Wo rk) Social History [...] How often do you attend moravian or jew Never 07/04/2019 services? 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 - 08/03/2017 11:16 AM CDT Ambulatory Patient Summary [facility] [address] [facility] [place] [id number] Visit Information Name: NANCY PHILLIPS [facility] Number: [id number] Current Date: 08/03/2017 11:16:44 Physicians [...] Date Time Location Provider 08/09/2017 13:15 [facility] SENIOR CARE ASSISTANT Queen PARUL Ayanna Sharif 08/21/2017 10:30 [facility] Nicki Montiel MD 09/06/2017 13:15 [facility] SENIOR CARE ASSISTANT Shar Tejeda MD Attention: Contact your local [...] if you dont have one. Go to [email or web address] and click on Create Your Account. Then, follow the directions to complete the online form. Youll be asked for your [facility] number which you can find at the top of this document. Your Goals/Additional instructions: Source: [facility] POWERCHART Document Id: [id number] Miscellaneous - Shar Tejeda M.D. - 08/03/2017 11:16 AM CDT Ambulatory Discharge Medication List [facility] [address] [place] [id number] Visit Information Name: NANCY PHILLIPS [facility] Number: [id number] Current Date: 08/03/2017 11:16:43 Attending [...] MD Signed On:03-AUG-2017 11:16:15 Additional Information: Source: [facility] POWERCHART Document Id: [id number] Miscellaneous - Laverne Conti, L.P.N. - 08/03/2017 11:03 AM CDT Adult Commissioned Security Officer Intake/History Adult Commissioned Security Officer Intake/History Entered On: 08/03/2017 11:06 CDT Performed [...] 08/03/2017 11:03 CDT General Info Languages : Tanzanian Is Patient Female and 13-50 no hysterectomy : No LAVERNE CONTI ROLL TESTER - 08/03/2017 11:03 CDT Subjective Pain Symptoms : No LAVERNE CONTI ROLL TESTER - 08/03/2017 11:03 CDT Dependent Habits Exposure to Tobacco Smoke : Other: never Smoking Status : Never smoker Tobacco 2A : No Tobacco Use/Currently Using : No Tobacco Use/Last 30 Days : No Tobacco Use/Last 12 months : No LAVERNE CONTI [facility] - 08/03/2017 11:03 CDT Caffeine Use Grid Caffeine Use : Current Type : Soft drinks Frequency : Daily Amount : regular 1-2 cans daily LAVERNE CONTI [facility] - 08/03/2017 11:03 CDT Source: [employer] Document Id: [id number] CDT!32 documented in this encounter Plan of Treatment Upcoming Encounters Date Type Specialty Care Team Description 08/17/2022 Procedure visit Neurology Marina Winter M.D., M.P.H. [address] [place] [phone] (Wo rk) Scheduled Procedures Name Priority Associated Diagnoses Date/Time LIFT THIGH Excessive And Redundant Skin And Subcutaneous Tissue documented as of this encounter Visit Diagnoses Not on filedocumented in this encounter Additional Health Concerns Assessment Noted Time PHQ-9 Depression Total Score: 9 12/27/2016 10:29 AM CS T documented as of this encounter Care Teams Flooring Machine Operator Relationship Specialty Start Date End Date Annemarie Montiel M.D. PCP - General 04/19/17 [address] [place] [phone] documented as of this encounter
--- OUTSIDE RECORDS SUMMARY | 2022-07-25 09:13 | XMS_ITS | Encounter Summary ---
:1985 Author Organization [facility] Address [address] [place] [address] Care Team Providers Name Role Phone Annemarie Montiel M.D. Primary Care Provider [phone] Reason for Visit Reason Comments Med Refill Encounter Details Date Type Department Care Team Description 03/26/2018 Refill Department of Yenifer Song M.D. Med Refill Medicine, [facility], in [address] [place], [place] [address] [address] [facility] [place] [address] [phone] Social History Tobacco Use Types Packs/Day Years [...] How often do you attend gnosticism or taoism Never 07/04/2019 services? 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 - 03/29/2018 11:44 AM CDT Rx pending documented in this encounter Plan of Treatment Upcoming Encounters Date Type Specialty Care Team Description 08/17/2022 Procedure visit Neurology Marina Winter M.D., M.P.H. [address], [place] [phone] (Wo rk) Scheduled Procedures Name Priority Associated Diagnoses Date/Time LIFT THIGH Excessive And Redundant Skin And Subcutaneous Tissue documented as of this encounter Visit Diagnoses Not on filedocumented in this encounter Additional Health Concerns Assessment Noted Time PHQ-9 Depression Total Score: 13 08/21/2017 12:55 PM C DT documented as of this encounter Care Teams Job Tracer Relationship Specialty Start Date End Date Annemarie Montiel M.D. PCP - General 04/19/17 [address], [place] [address] documented as of this encounter
--- OUTSIDE RECORDS SUMMARY | 2022-07-25 09:13 | XMS_ITS | Encounter Summary ---
:1985 Author Organization [facility] Address [address] [place] [address] Care Team Providers Name Role Phone Annemarie Montiel M.D. Primary Care Provider [phone] Reason for Visit Reason Comments Med Refill Encounter Details Date Type Department Care Team Description 05/16/2018 Refill Department of Yenifer Song M.D. Med Refill Medicine, [facility], [address] [place] [address] [address] [place] [address] [phone] Social History Tobacco Use Types Packs/Day Years [...] often do you attend oriental orthodox or adventist Never 07/04/2019 services? 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 [address], [place] [phone] (Wo rk) Scheduled Procedures Name Priority Associated Diagnoses Date/Time LIFT THIGH Excessive And Redundant Skin And Subcutaneous Tissue documented as of this encounter Visit Diagnoses Not on filedocumented in this encounter Additional Health Concerns Assessment Noted Time PHQ-9 Depression Total Score: 15 03/27/2018 5:04 PM CD T documented as of this encounter Care Teams Healthcare Sales Representative Relationship Specialty Start Date End Date Annemarie Montiel M.D. PCP - General 04/19/[address] [place] [phone] documented as of this encounter
--- OUTSIDE RECORDS SUMMARY | 2022-07-25 09:13 | XMS_ITS | Encounter Summary ---
:1985 Author Organization [facility] Address [address] [place] [address] Care Team Providers Name Role Phone Annemarie Montiel M.D. Primary Care Provider [phone] Encounter Details Date Type Department Care Team Description 10/08/2017 Abstract Department of Family Medicine, Provider, Historical [facility], in [place], [place] [address] [place] [address] Social History Tobacco Use Types Packs/Day [...] How often do you attend uatsdin or methodist Never 07/04/2019 services? 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 [address] [place] [phone] (Wo rk) Scheduled Procedures Name Priority Associated Diagnoses Date/Time LIFT THIGH Excessive And Redundant Skin And Subcutaneous Tissue documented as of this encounter Visit Diagnoses Not on filedocumented in this encounter Additional Health Concerns Assessment Noted Time PHQ-9 Depression Total Score: 13 08/21/2017 12:55 PM C DT documented as of this encounter Care Teams Electrical Power Station Technician Relationship Specialty Start Date End Date Annemarie Montiel M.D. PCP - General 04/19/[address] [phone] documented as of this encounter
--- OUTSIDE RECORDS SUMMARY | 2022-07-25 09:13 | XMS_ITS | Encounter Summary ---
:1985 Author Organization [facility] Address [address] [place] [address] Care Team Providers Name Role Phone Annemarie Montiel M.D. Primary Care Provider [phone] Reason for Visit Reason Comments Med Refill Encounter Details Date Type Department Care Team Description 03/26/2018 Refill Department of Yenifer Song M.D. Med Refill Medicine, [facility], [address] [place] [address] [address] [place] [address] [facility] [phone] Social History Tobacco Use Types Packs/Day Years [...] How often do you attend mandaeism or advent Never 07/04/2019 services? 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 [address], [place] [phone] (Wo rk) Scheduled Procedures Name Priority Associated Diagnoses Date/Time LIFT THIGH Excessive And Redundant Skin And Subcutaneous Tissue documented as of this encounter Visit Diagnoses Not on filedocumented in this encounter Additional Health Concerns Assessment Noted Time PHQ-9 Depression Total Score: 13 08/21/2017 12:55 PM C DT documented as of this encounter Care Teams Shoe Salesperson Relationship Specialty Start Date End Date Annemarie Montiel M.D. PCP - General 04/19/[address] [place] [address] documented as of this encounter
--- OUTSIDE RECORDS SUMMARY | 2022-07-25 09:13 | XMS_ITS | Encounter Summary ---
:[address] [facility] Address [address] [place] [address] Care Team Providers Name Role Phone Annemarie Montiel M.D. Primary Care Provider [phone] Encounter Details Date Type Department Care Team Description 07/17/2017 Hospital Encounter [facility] Eva Shields M.D. Social History Tobacco Use [...] How often do you attend restorationist or rastafari Never 07/04/2019 services? 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 Tejeda Thanks, I prionted the RX for these refills ; she can p[ick them up at her appointment time. Addendum by LIA CUEVAS LPN on August 08, 2017 13:13:15 CDT From: LIA CUEVAS LPN ( FLEET MECHANIC Nurse) To: SHAR TEJDEA MD; Sent: 08/08/2017 13:13:15 CDT Subject: FW: [...] office today. From: BRENT AGUILAR To: OW FLEET MECHANIC Nurse; Sent: 08/08/2017 11:39:07 CDT Subject: *Phone [...] Ambien A: R: Please call pt at [phone] Advice/Action: Source used: ( ) Verbalizes understanding [...] back cell phone number ( ) Source: [facility] QualisteoCHART Document Id: [id number] documented in this encounter Plan of Treatment Upcoming Encounters Date Type Specialty Care Team Description 08/17/2022 Procedure visit Neurology Marina Winter M.D., M.P.H. [address] [phone] (Wo rk) Scheduled Procedures Name Priority Associated Diagnoses Date/Time LIFT THIGH Excessive And Redundant Skin And Subcutaneous Tissue documented as of this encounter Visit Diagnoses Not on filedocumented in this encounter Additional Health Concerns Assessment Noted Time PHQ-9 Depression Total Score: 9 12/27/2016 10:29 AM CS T documented as of this encounter Care Teams Autotransfusionist Relationship Specialty Start Date End Date Annemarie Montiel M.D. PCP - General 04/19/[address] [phone] documented as of this encounter
--- OUTSIDE RECORDS SUMMARY | 2022-07-25 09:13 | XMS_ITS | Encounter Summary ---
:1985 Author Organization [facility] Address [address] [place] [address] Care Team Providers Name Role Phone Annemarie Montiel M.D. Primary Care Provider [phone] Encounter Details Date Type Department Care Team Description 07/25/2017 Hospital Encounter HX NO MAPPING Nahun Tejeda M.D. [address] [place], [place] [phone] (Wo rk) Social History [...] How often do you attend rastafari or mu-ism Never 07/04/2019 services? 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 [address] [place], [place] [phone] (Wo rk) Scheduled Procedures Name Priority Associated Diagnoses Date/Time LIFT THIGH Excessive And Redundant Skin And Subcutaneous Tissue documented as of this encounter Visit Diagnoses Not on filedocumented in this encounter Additional Health Concerns Assessment Noted Time PHQ-9 Depression Total Score: 9 12/27/2016 10:29 AM CS T documented as of this encounter Care Teams Stone Rigger Relationship Specialty Start Date End Date Annemarie Montiel M.D. PCP - General 04/19/17 [address] [address] documented as of this encounter
--- OUTSIDE RECORDS SUMMARY | 2022-07-25 09:13 | XMS_ITS | Encounter Summary ---
:1985 Author Organization [facility] Address [address] [place] [address] Care Team Providers Name Role Phone Annemarie Montiel M.D. Primary Care Provider [phone] Reason for Visit Reason Comments Med Refill Encounter Details Date Type Department Care Team Description 01/13/2018 Refill Department of Obstetrics and Gau Nahun kraus M.D. Med Refill Gynecology in [place] [address] [address] [place] [address] [facility] [phone] Social History Tobacco Use Types Packs/Day Years [...] How often do you attend pentecostal or caodaism Never 07/04/2019 services? 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 Nicki Montiel. documented in this encounter Plan of Treatment Upcoming Encounters Date Type Specialty Care Team Description 08/17/2022 Procedure visit Neurology Marina Winter M.D., M.P.H. [address], [place] [phone] (Wo rk) Scheduled Procedures Name Priority Associated Diagnoses Date/Time LIFT THIGH Excessive And Redundant Skin And Subcutaneous Tissue documented as of this encounter Visit Diagnoses Not on filedocumented in this encounter Additional Health Concerns Assessment Noted Time PHQ-9 Depression Total Score: 13 08/21/2017 12:55 PM C DT documented as of this encounter Care Teams Welfare Director Relationship Specialty Start Date End Date Annemarie Montiel M.D. PCP - General 04/19/17 [address], [place] [address] documented as of this encounter
--- OUTSIDE RECORDS SUMMARY | 2022-07-25 09:13 | XMS_ITS | Encounter Summary ---
:1985 Author Organization [facility] Address [address] [place] [address] Care Team Providers Name Role Phone Annemarie Montiel M.D. Primary Care Provider [phone] Reason for Visit Reason Comments Foreign Body in Skin Encounter Details Date Type Department Care Team Description 02/09/2018 Emergency [facility] ED Foreign Body Arm [address] Superficial Initial Left [place] [phone] (Primary Dx) [phone] Social History Tobacco Use Types Packs/Day Years [...] How often do you attend pentecostalism or scientologist Never 07/04/2019 services? 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 [address] [place] [phone] (Wo rk) Scheduled Procedures Name [...] documented as of this encounter Care Teams Middle School Assistant Principal Relationship Specialty Start Date End Date Annemarie Montiel M.D. PCP - General 04/19/[address] [place] [phone] documented as of this encounter
--- OUTSIDE RECORDS SUMMARY | 2022-07-25 09:13 | XMS_ITS | Encounter Summary ---
:1985 Author Organization [facility] Address [address] [place] [address] Care Team Providers Name Role Phone Annemarie Montiel M.D. Primary Care Provider [phone] Reason for Visit Reason Comments Med Refill Encounter Details Date Type Department Care Team Description 01/21/2018 Refill Department of Yenifer Song M.D. Med Refill Medicine, [facility], [address] [place] [address] [address] [place] [address] [facility] [phone] Social History Tobacco Use Types Packs/Day Years [...] How often do you attend latter-day or congregational Never 07/04/2019 services? 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 documented in this encounter Plan of Treatment Upcoming Encounters Date Type Specialty Care Team Description 08/17/2022 Procedure visit Neurology Marina Winter M.D., M.P.H. [address], [place] [phone] (Wo rk) Scheduled Procedures Name Priority Associated Diagnoses Date/Time LIFT THIGH Excessive And Redundant Skin And Subcutaneous Tissue documented as of this encounter Visit Diagnoses Not on filedocumented in this encounter Additional Health Concerns Assessment Noted Time PHQ-9 Depression Total Score: 13 08/21/2017 12:55 PM C DT documented as of this encounter Care Teams Deicer Finisher Relationship Specialty Start Date End Date Annemarie Montiel M.D. PCP - General 04/19/17 [address], [place] [address] documented as of this encounter
--- OUTSIDE RECORDS SUMMARY | 2022-07-25 09:13 | XMS_ITS | Encounter Summary ---
:1985 Author Organization [facility] Address [address] [place] [address] Care Team Providers Name Role Phone Annemarie Montiel M.D. Primary Care Provider [phone] Encounter Details Date Type Department Care Team Description 08/09/2017 Hospital Encounter HX [facility] Ramsey Valero A PRN, C.N.P., [...] How often do you attend orthodox or restorationism Never 07/04/2019 services? 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 - 08/09/2017 12:58 PM CDT [id number] CHIEF COMPLAINT/REASON FOR VISIT Nancy is seen [...] DINH NP On: 08/28/2017 06:24 PM Source: [facility] MHSDOLBEYNONRADSYS Document Id: [id number] documented in this encounter Miscellaneous Notes Miscellaneous - Ramsey Dnih M.SSarah. - 08/09/2017 1:56 PM CDT Ambulatory Patient Summary [address] [id number] Visit Information Name: NANCY PHILLIPS [facility] Number: [id number] Current Date: 08/09/2017 13:56:18 Physicians [...] 1 Tablet(s), Oral, once New Routed to [facility] [address] [place] [address] [facility] Prescription ([facility] Prescription) Cocunut oil 1000mg tablet daily naproxen [...] Dinesh RED, Nicki Zuniga 09/06/2017 13:15 [facility] RACEHORSE TRAINER Ileana RED, Nahun Regalado Attention: Contact your [...] this document. Your Goals/Additional instructions: Source: [facility] POWERCHART Document Id: [id number] Miscellaneous - Rmasey Dinh M.S.N. - 08/09/2017 1:56 PM CDT Ambulatory Discharge Medication List [facility] [address] [place] [id number] Visit Information Name: NANCY PHILLIPS [facility] Number: [id number] Current Date: 08/09/2017 13:56:17 Attending [...] 1 Tablet(s), Oral, once New Routed to [facility] [address] [place] [address] [facility] Prescription ([facility] Prescription) Cocunut oil 1000mg tablet daily naproxen [...] NP Signed On:09-AUG-2017 13:56:13 Additional Information: Source: [facility] POWERCHART Document Id: [id number] Miscellaneous - Nusrat Miller L.PRodrigoNRodrigo - 08/09/2017 1:04 PM CDT Adult Hotbed Transfer Operator Intake/History Adult Hotbed Transfer Operator Intake/History Entered On: 08/09/2017 13:08 CDT Performed [...] Mass Index : 46.33 kg/m2 NUSRAT MILLER [facility] - 08/09/2017 13:04 CDT General Info Information Given By : Patient Preferred Communication Mode : Verbal Languages : Arabic Is Patient Female and 13-50 no hysterectomy : No NUSRAT MILLER LPN - 08/09/2017 13:04 CDT Subjective Pain Symptoms : Yes NUSRAT MILLER LPN - 08/09/2017 13:04 CDT Pain Scale Pain Scale Verbal 0-10 : Open NUSRAT MILLER IMPREGNATION OPERATOR 08/09/2017 13:04 CDT Pain Pain Assessment Grid [...] : regular 1-2 cans daily NUSRAT MILLER IMPREGNATION OPERATOR 08/09/2017 13:04 CDT Source: [employer] Document Id: [id number] CDT!46 documented in this encounter Plan of Treatment Upcoming Encounters Date Type Specialty Care Team Description 08/17/2022 Procedure visit Neurology Marina Winter M.D., M.P.H. [address], [place] [phone] (Wo rk) Scheduled Procedures Name Priority Associated Diagnoses Date/Time LIFT THIGH Excessive And Redundant Skin And Subcutaneous Tissue documented as of this encounter Visit Diagnoses Not on filedocumented in this encounter Additional Health Concerns Assessment Noted Time PHQ-9 Depression Total Score: 9 12/27/2016 10:29 AM CS T documented as of this encounter Care Teams Lead Etl Developer Relationship Specialty Start Date End Date Annemarie Montiel M.D. PCP - General 04/19/[address] [phone] documented as of this encounter
--- OUTSIDE RECORDS SUMMARY | 2022-07-25 09:13 | XMS_ITS | Encounter Summary ---
:1985 Author Organization [facility] Address [address] [place] [address] Care Team Providers Name Role Phone Annemarie Montiel M.D. Primary Care Provider [phone] Reason for Visit Reason Comments med check Sore Throat and coughing for the last we ek Encounter Details Date Type Department Care Team Description 03/27/2018 Office Visit Department of Annemarie Song Depression Major Recurrent (HCC) (Primary Dx); Porfirio Valdes M.D. Anxiety Generalized Disorder; Clinic, in [place], [address] Morbid Obesity Body Mass Index Greater T rivas Or Equal To 40 Adult (HCC); [place], [place] Infection Upper Respiratory [address] [address] [place], [place] [phone] (Wo rk) [address] [phone] Social History Tobacco Use Types Packs/Day Years [...] How often do you attend restoration or sikhism Never 07/04/2019 services? 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 [facility] Patient has felt more irritable [...] a record of services personally performed by Anenmarie Montiel MD. It was created on their behalf by Karen huertas trained medical care administrator. The creation of this record is based on the scribe's personal observations and the provider's statements to them. This document has been checked and approved by the attending provider. documented in this encounter Plan of Treatment Upcoming Encounters Date Type Specialty Care Team Description 08/17/2022 Procedure visit Neurology Marina Winter M.D., M.P.H. [address] [place], [place] [phone] (Wo rk) Scheduled Procedures [...] documented as of this encounter Care Teams Jet Engine Mechanic Relationship Specialty Start Date End Date Annemarie Montiel M.D. PCP - General 04/19/17 [address] [place] [address] documented as of this encounter
--- OUTSIDE RECORDS SUMMARY | 2022-07-25 09:13 | XMS_ITS | Encounter Summary ---
:1985 Author Organization [facility] Address [address] [place] [address] Care Team Providers Name Role Phone Annemarie Montiel M.D. Primary Care Provider [phone] Encounter Details Date Type Department Care Team Description 07/03/2017 Hospital Encounter HX [facility] Promise Rouse M.D. [address] [place], [place] [phone] (Wo rk) Social History [...] often do you attend jehovah's witness or holiness Never 07/04/2019 services? 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 - 07/03/2017 10:07 AM CDT [id number] CHIEF COMPLAINT/REASON FOR VISIT Endometriosis. HISTORY OF [...] TEJEDA MD On: 07/05/2017 03:15 PM Source: [facility] Document Id: [id number] documented in this encounter Miscellaneous Notes Miscellaneous - Shar Tejeda M.D. - 07/03/2017 12:02 PM CDT Ambulatory Patient Summary [address] [id number] Visit Information Name: NANCY PHILLIPS [facility] Number: [id number] Current Date: 07/03/2017 12:02:54 Physicians [...] Oskar RED, Tammy Noriega 08/09/2017 13:15 OW[facility] LEAD MECHANIC Ayanna Xie NP 08/21/2017 10:30 OW FamilyPrac Nicki Montiel MD 09/06/2017 13:15 OW[facility] LEAD MECHANIC Ileana RED, Shar Regaldao Attention: Contact your local Clinic if further [...] if you dont have one. Go to [email or web address] and click on Create Your Account. Then, follow the directions to complete the online form. Youll be asked for your [facility] number which you can find at the top of this document. Your Goals/Additional instructions: Source: [facility] POWERCHART Document Id: [id number] Miscellaneous - Shar Tejeda M.D. - 07/03/2017 12:02 PM CDT Ambulatory Discharge Medication List [facility] [address] [place] [id number] Visit Information Name: NANCY PHILLIPS [facility] Number: [id number] Current Date: 07/03/2017 12:02:53 Attending [...] MD Signed On:03-JUL-2017 12:02:46 Additional Information: Source: [facility] POWERCHART Document Id: [id number] Miscellaneous - Dwayne Arroyo - 07/03/2017 10:22 AM CDT Adult Financial Reporting Specialist Intake/History Adult Financial Reporting Specialist Intake/History Entered On: 07/03/2017 10:30 CDT Performed [...] Preferred Communication Mode : Verbal Languages : Armenian Is Patient Female and 13-50 no hysterectomy [...] DWAYNE ARROYO - 07/03/2017 10:22 CDT Source: [employer] Document Id: [id number] CDT!36 documented in this encounter Plan of Treatment Upcoming Encounters Date Type Specialty Care Team Description 08/17/2022 Procedure visit Neurology Marina Winter M.D., M.P.H. [address] [phone] (Wo rk) Scheduled Procedures Name Priority Associated Diagnoses Date/Time LIFT THIGH Excessive And Redundant Skin And Subcutaneous Tissue documented as of this encounter Visit Diagnoses Not on filedocumented in this encounter Additional Health Concerns Assessment Noted Time PHQ-9 Depression Total Score: 9 12/27/2016 10:29 AM CS T documented as of this encounter Care Teams Centrifugal Supervisor Relationship Specialty Start Date End Date Annemarie Montiel M.D. PCP - General 04/19/[address] [place] [address] documented as of this encounter
--- OUTSIDE RECORDS SUMMARY | 2022-07-25 09:13 | XMS_ITS | Encounter Summary ---
:1985 Author Organization [facility] Address [address] [place] [address] Care Team Providers Name Role Phone Annemarie Montiel M.D. Primary Care Provider [phone] Encounter Details Date Type Department Care Team Description 07/27/2017 Hospital Encounter HX NO MAPPING Nahun Tejeda M.D. [address] [place], [place] [phone] (Wo rk) Social History [...] How often do you attend mormonism or gnosticism Never 07/04/2019 services? 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 [address] [place] [phone] (Wo rk) Scheduled Procedures Name Priority [...] documented as of this encounter Care Teams Outpatient Facility Physical Therapist Relationship Specialty Start Date End Date Annemarie Montiel M.D. PCP - General 04/19/17 [address] [place] [address] documented as of this encounter
--- OUTSIDE RECORDS SUMMARY | 2022-07-25 09:13 | XMS_ITS | Encounter Summary ---
:1985 Author Organization [facility] Address [address] [place] [address] Care Team Providers Name Role Phone Annemarie Montiel M.D. Primary Care Provider [phone] Encounter Details Date Type Department Care Team Description 07/17/2017 Hospital Encounter HX [facility] FAMILYPRA Daniel Gilmore M.D. [address] [place], [place] [address] (Wo rk) Social History Tobacco Use Types [...] How often do you attend nondenominational or episcopal Never 07/04/2019 services? 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 Tejeda Abdominal Hysterectomy [facility] DOS: 07/25/2017 HISTORY OF PRESENT ILLNESS The patient has been scheduled for abdominal hysterectomy by Dr. Tejeda at the [facility] under general anesthesia on 07/25/17 Patient has not had a history of CAD (i.e. no angina pectoris or history of exertional chest pain believed to be CAD and not s/p AL), Asthma, DONN (obstructive sleep apnea), anticoagulation, diabetes, thyroid disease, DVT, bleeding disorder, liver disease, anesthesia reaction, renal insufficiency, rece nt cough, recent fever, current . Patient is able to climb 2 flights of stairs without stopping. MEDICATIONS Effexor XR 75 mg oral capsule, extended release, 75 mg, 1 cap(s), PO, Daily, 4 refills, * [facility] Prescription, Cocunut oil 1000mg tablet daily naproxen [...] GILMORE MD On: 07/17/2017 12:46 PM Source: [facility] POWERCHART Document Id: [id number] documented in this encounter Miscellaneous Notes Miscellaneous [...] Ratio 3.88 07/17/2017 12:31 LDL/HDL 2 Source: [facility] [place] POWERCHART Document Id: [id number] Miscellaneous - Tammy Gilmore M.D. - 07/17/2017 12:47 PM CDT Ambulatory Patient Summary [facility] [address] [place] [id number] Visit Information Name: NANCY PHILLIPS [facility] Number: [id number] Current Date: 07/17/2017 12:47:50 Physicians [...] Date Time Location Provider 08/09/2017 13:15 [facility] SLITTER AND CUTTER OPERATOR Ayanna Xie NP 08/21/2017 10:30 OW[facility] FamilyPrac Nicki Montiel MD 09/06/2017 13:15 [facility] SLITTER AND CUTTER OPERATOR Ileana RED, Nahun Regalado Attention: Contact [...] if you dont have one. Go to [email or web address] and click on Create Your Account. Then, follow the directions to complete the online form. Youll be asked for your [facility] number which you can find at the top of this document. Your Goals/Additional instructions: Source: [facility] POWERCHART Document Id: [id number] Miscellaneous - Tammy Gilmore M.D. - 07/17/2017 12:47 PM CDT Ambulatory Discharge Medication List [facility] [address] [place] [id number] Visit Information Name: NANCY PHILLIPS [facility] Number: [id number] Current Date: 07/17/2017 12:47:49 Attending [...] MD Signed On:17-JUL-2017 12:47:46 Additional Information: Source: [employer] Document Id: [id number] Miscellaneous - Galina Fisher, C.M.A. - 07/17/2017 11:43 AM CDT Obstructive Sleep Apnea Obstructive Sleep Apnea Entered On: 07/17/2017 11:44 CDT Performed On: 07/17/2017 11:43 CDT by GALINA FISHER [facility] DONN Screening Known Obstructive Sleep Apnea : No - NOT diagnosed with DONN DONN Score : No qualifying data available. DONN Results : No qualifying data available. GALINA FISHER [facility] - 07/17/2017 11:43 CDT DONN Assessment Do [...] Clinical Score Calc : 5 GALINA FISHER [facility] - 07/17/2017 11:43 CDT Source: [employer] Document Id: [id number] CDT!12 Miscellaneous - Galina Fisher CRodrigoMSandra - 07/17/2017 11:39 AM CDT Adult Senior Managing Director Intake/History Adult Senior Managing Director Intake/History Entered On: 07/17/2017 11:43 CDT Performed On: 07/17/2017 11:39 CDT by GALINA FISHER [facility] Intake Chief Complaint : pre-op Dr. Tejeda Abdominal Hysterectomy [facility] DOS: 07/25/2017 LMP Date : [...] Mass Index : 46.59 kg/m2 GALINA FISHER [facility] - 07/17/2017 11:39 CDT General Info Information Given By : Patient Languages : Haitian Is Patient Female and 13-50 no hysterectomy : No GALINA FISHER [facility] - 07/17/2017 11:39 CDT Subjective Pain Symptoms : No GALINA FISHER [facility] - 07/17/2017 11:39 CDT Dependent Habits Exposure to Tobacco Smoke : Other: never Smoking Status : Never smoker Tobacco 2A : No Tobacco Use/Currently Using : No Tobacco Use/Last 30 Days : No Tobacco Use/Last 12 months : No GALINA FISHER [facility] - 07/17/2017 11:39 CDT Caffeine Use Grid Caffeine Use : Current Type : Soft drinks Frequency : Daily Amount : regular 1-2 cans daily GALINA FISHER [facility] - 07/17/2017 11:39 CDT Source: [facility] [place] POWERCHART Document Id: [id number] CDT!36 documented in this encounter Plan of Treatment Upcoming Encounters Date Type Specialty Care Team Description 08/17/2022 Procedure visit Neurology Marina Winter M.D., M.P.H. [address] [place] [phone] (Wo rk) Scheduled Procedures Name Priority [...] for FH and FDB is available throu [facility]: FH/ADH Genetic Reflex [place] [...] at or the on-line test catalog at [employer] for information about how to order these [...] documented as of this encounter Care Teams Postpartum Nurse Relationship Specialty Start Date End Date Annemarie Montiel M.D. PCP - General 04/19/17 [address], [place] [address] documented as of this encounter
--- OUTSIDE RECORDS SUMMARY | 2022-07-25 09:13 | XMS_ITS | Encounter Summary ---
:1985 Author Organization [facility] Address [address] [place] [address] Care Team Providers Name Role Phone Annemarie Montiel M.D. 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 [address] [place], [place] [phone] (Wo rk) Scheduled Procedures [...] as of this encounter Care Teams Cargo Worker Relationship Specialty Start Date End Date Annemarie Montiel M.D. PCP - General 04/19/172199 [place] [address] documented as of this encounter
--- OUTSIDE RECORDS SUMMARY | 2022-07-25 09:13 | XMS_ITS | Encounter Summary ---
:1985 Author Organization [facility] Address [address] [place] [address] Care Team Providers Name Role Phone Annemarie Montiel M.D. Primary Care Provider [phone] Reason for Visit Reason Comments Med Refill Encounter Details Date Type Department Care Team Description 02/27/2018 Refill Department of Yenifer Song M.D. Med Refill Medicine, [facility], [address] [place] [address] [address] [place] [address] [facility] [phone] Social History Tobacco Use Types Packs/Day Years [...] How often do you attend islam or methodist Never 07/04/2019 services? 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 [address], [place] [phone] (Wo rk) Scheduled Procedures Name Priority Associated Diagnoses Date/Time LIFT THIGH Excessive And Redundant Skin And Subcutaneous Tissue documented as of this encounter Visit Diagnoses Not on filedocumented in this encounter Additional Health Concerns Assessment Noted Time PHQ-9 Depression Total Score: 13 08/21/2017 12:55 PM C DT documented as of this encounter Care Teams Seasonal Sales Associate Relationship Specialty Start Date End Date Annemarie Montiel M.D. PCP - General 04/19/[address] [place] [address] documented as of this encounter
--- OUTSIDE RECORDS SUMMARY | 2022-07-25 09:13 | XMS_ITS | Encounter Summary ---
:1985 Author Organization [facility] Address [address] [place] [address] Care Team Providers Name Role Phone Annemarie Montiel M.D. Primary Care Provider [phone] Reason for Visit Reason Comments Dizziness Encounter Details Date Type Department Care Team Description 10/31/2017 Emergency [facility] ED Pharyngitis Streptococcal [address] (Primary Dx) [place] [address] Social History Tobacco Use Types Packs/Day [...] How often do you attend presybeterian or pentecostalism Never 07/04/2019 services? 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 [address] [place], [place] [phone] (Wo rk) Scheduled Procedures Name Priority Associated Diagnoses Date/Time LIFT THIGH Excessive And Redundant Skin And Subcutaneous Tissue documented as of this encounter Visit Diagnoses Diagnosis Pharyngitis Streptococcal - Primary documented in this encounter Additional Health Concerns Assessment Noted Time PHQ-9 Depression Total Score: 13 08/21/2017 12:55 PM C DT documented as of this encounter Care Teams Field Clinical Engineer Relationship Specialty Start Date End Date Annemarie Montiel M.D. PCP - General 04/19/170 [place] [address] documented as of this encounter
--- OUTSIDE RECORDS SUMMARY | 2022-07-25 09:13 | XMS_ITS | Encounter Summary ---
:1985 Author Organization [facility] Address [address] [place] [address] Care Team Providers Name Role Phone Annemarie Montiel M.D. Primary Care Provider [phone] Reason for Visit Reason Comments Follow-up cholesterol Encounter Details Date Type Department Care Team Description 10/16/2017 Office Visit Department of Family Tammy Schmitt rbid Obesity Body Mass Index Greater Than Or Equal To 40 Adult (HCC) (Primary Dx); Porfirio Valdes M.D. Hyperlipidemia Mixed Clinic, in [place] [address] [place], [place] [address] [address] [place], [place] [phone] [address] (Work) [phone] Social History Tobacco Use Types Packs/Day Years [...] How often do you attend mormonism or mosque Never 07/04/2019 services? 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 documented as of this encounter Last Filed Vital Signs Vital Sign Reading Time Taken Comments Blood Pressure 98/64 10/16/2017 12:01 PM LICENSED REAL ESTATE BROKER Pulse 68 10/16/2017 12:01 PM LICENSED REAL ESTATE BROKER Temperature - - Respiratory Rate 16 10/16/2017 12:01 PM LICENSED REAL ESTATE BROKER Oxygen Saturation - - Inhaled Oxygen Concentration - - Weight 128 kg (282 lb 10.1 oz) 10/16/2017 12:01 PM LICENSED REAL ESTATE BROKER Height 164 cm (5' 4.57) 10/16/2017 12:01 PM LICENSED REAL ESTATE BROKER Body Mass Index 47.67 10/16/2017 12:01 PM LICENSED REAL ESTATE BROKER documented in this encounter Progress Notes Tammy [...] want to drive back and forth between [facility] or [place] and [place] in the winter, so she is thinking [...] weight loss surgery. - Lipid Panel; Future NSED REAL ESTATE BROKER documented in this encounter Plan of Treatment Upcoming Encounters Date Type Specialty Care Team Description 08/17/2022 Procedure visit Neurology Marina Winter M.D., M.P.H. [address] [place] [phone] (Wo rk) Scheduled Procedures Name [...] documented as of this encounter Care Teams Unbundler Relationship Specialty Start Date End Date Annemarie Montiel M.D. PCP - General 04/19/17 [address] [place] [address] documented as of this encounter
--- OUTSIDE RECORDS SUMMARY | 2022-07-25 09:13 | XMS_ITS | Encounter Summary ---
:1985 Author Organization [facility] Address [address] [place] [address] Care Team Providers Name Role Phone Annemarie Montiel M.D. Primary Care Provider [phone] Encounter Details Date Type Department Care Team Description 08/02/2017 Hospital Encounter HX [facility] LAB Nahun Tejeda M.D. [address] [place], [place] [phone] (Wo rk) Social History [...] How often do you attend yazidi or cheondoism Never 07/04/2019 services? 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 [address] [place] [phone] (Wo rk) Scheduled Procedures Name Priority [...] (ABNORMAL) Urine Microscopic (08/02/2017 3:43 PM CDT) [facility] Method Time Signature HXUR WBC. [...] (ABNORMAL) Urinalysis, Routine (08/02/2017 3:43 PM CDT) [facility] Method Time Signature HXUr Color Yellow Yellow POWERCHART Clarity Cloudy (A) Clear POWERCHART Glucose Negative Negative POWERCHART HXBILIRUBIN Negative Negative POWERCHART Ketones, QL(U) Negative Negative POWERCHART Specific 1.021 1.001 - POWERCHART [place], POCT, 1.035 U Comment: Reference Range Specific [place]: 1.000-1.035 pH, POCT, Urine 5.0 POWERCHART Comment: [...] documented as of this encounter Care Teams Pediatric Urologist Relationship Specialty Start Date End Date Annemarie Montiel M.D. PCP - General 04/19/[address] [place] [address] documented as of this encounter
--- OUTSIDE RECORDS SUMMARY | 2022-07-25 09:13 | XMS_ITS | Encounter Summary ---
:1985 Author Organization [facility] Address [address] [place] [address] Care Team Providers Name Role Phone Annemarie Montiel M.D. Primary Care Provider Encounter Details Date Type Department Care Team Description 08/21/2017 Hospital Encounter [facility]X [facility] Meche Montiel M.D. [address] [place] [address] (Wo rk) Social History Tobacco [...] How often do you attend moravian or taoist Never 07/04/2019 services? 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 - 08/21/2017 9:57 AM CDT [id number] CHIEF COMPLAINT / REASON FOR VISIT Medication [...] to the Endocrine and Metabolism clinic in [place] but reminded her that slow and steady [...] their behalf by Tiago Newman, a trained certified ophthalmic medical technician. The creation of this record is based on the scribe's personal observations and the provider's statements to them. This document has been checked and approved by the attending provider. Annemarie Montiel M.D./lisa Electronically Signed By: ANNEMARIE MONTIEL MD On: 09/05/2017 08:52 PM Source: [facility] MHSDOLBEYNONRADSYS Document Id: [id number] documented in this encounter Miscellaneous Notes Miscellaneous [...] SHOEMAKER LPN - 08/21/2017 12:55 CDT Source: [facility] POWERCHART Document Id: [id number] CDT!11 Miscellaneous - Steve Shoemaker L.P.N. - [...] SHOEMAKER LPN - 08/21/2017 12:55 CDT Source: [email or web address] Document Id: [id number] CDT!13 Miscellaneous - Annemarie Montiel M.D. - 08/21/2017 11:19 AM CDT Ambulatory Patient Summary [address] [id number] Visit Information Name: NANCY PHILLIPSE [facility] Number: [id number] Current Date: 08/21/2017 11:19:10 Physicians [...] needed for increased anxiety New Routed to [facility] [address] [place] [address] [facility] Prescription ([facility] Prescription) Cocunut oil 1000mg tablet daily naproxen (naproxen 250 mg oral tablet) 1 Tablet(s), Oral, two times a day as needed for pain with food oxyCODONE-acetaminophen (oxyCODONE-acetaminophen 5 mg-325 mg oral tablet) 1 Tablet(s), Oral, every 4hours as needed for Pain No more than 4,000mg acetaminophen/24hrs phentermine (phentermine 37.5 mg oral capsule) 1 cap, Oral, once a day New Routed to [facility] venlafaxine (Effexor XR 150 mg oral capsule, extended release) 1 cap, Oral, once a day This is a CHANGE Routed to [facility] [address] [facility] [place] [address] zolpidem (Ambien 10 [...] Date Time Location Provider 09/06/2017 13:15 [facility] SCREENER OPERATOR Ileana RED, Nahun Regalado Attention: Contact [...] if you dont have one. Go to [email or web address] and click on Create Your Account. Then, follow the directions to complete the online form. Youll be asked for your [facility] number which you can find at the top of this document. Your Goals/Additional instructions: Source: [facility] POWERCHART Document Id: [id number] Miscellaneous - Annemarie Montiel M.D. - 08/21/2017 11:19 AM CDT Ambulatory Discharge Medication List [address] [id number] Visit Information Name: NANCY PHILLIPS [facility] Number: [id number] Current Date: 08/21/2017 11:19:10 Attending [...] needed for increased anxiety New Routed to [facility] [address] [place] [address] [facility] Prescription ([facility] Prescription) Cocunut oil 1000mg tablet daily naproxen (naproxen 250 mg oral tablet) 1 Tablet(s), Oral, two times a day as needed for pain with food oxyCODONE-acetaminophen (oxyCODONE-acetaminophen 5 mg-325 mg oral tablet) 1 Tablet(s), Oral, every 4hours as needed for Pain No more than 4,000mg acetaminophen/24hrs phentermine (phentermine 37.5 mg oral capsule) 1 cap, Oral, once a day New Routed to [facility] venlafaxine (Effexor XR 150 mg oral capsule, extended release) 1 cap, Oral, once a day This is a CHANGE Routed to [facility] [address] [place] [address] zolpidem [...] MD Signed On:21-AUG-2017 11:19:04 Additional Information: Source: [facility] POWERCHART Document Id: [id number] Miscellaneous - Rafael-Galina Morgan C.MSandra - 08/21/2017 10:09 AM CDT Adult Cloth Mercerizer Back Tender Intake/History Adult Cloth Mercerizer Back Tender Intake/History Entered On: 08/21/2017 10:12 CDT Performed On: 08/21/2017 10:09 CDT by GALINA [facility]ER [facility] Intake Chief Complaint : Med Check Temperature [...] Mass Index : 46.59 kg/m2 GALINA FISHER [facility] - 08/21/2017 10:09 CDT General Info Information Given By : Patient Languages : Maori Is Patient Female and 13-50 no hysterectomy : No GALINA FISHER [facility] - 08/21/2017 10:09 CDT Subjective Pain Symptoms : Yes GALINA FISHER [facility] - 08/21/2017 10:09 CDT Dependent Habits Exposure to Tobacco Smoke : Other: never Smoking Status : Never smoker Tobacco 2A : No Tobacco Use/Currently Using : No Tobacco Use/Last 30 Days : No Tobacco Use/Last 12 months : No GALINA FISHER [facility] - 08/21/2017 10:09 CDT Caffeine Use Grid Caffeine Use : Current Type : Soft drinks Frequency : Daily Amount : regular 1-2 cans daily GALINA FISHER [facility] - 08/21/2017 10:09 CDT Source: [facility] POWERCHART Document Id: [id number] CDT!35 documented in this encounter Plan of Treatment Upcoming Encounters Date Type Specialty Care Team Description 08/17/2022 Procedure visit Neurology Marina Winter M.D., M.P.H. [address] [phone] (Wo rk) Scheduled Procedures Name Priority Associated Diagnoses Date/Time LIFT THIGH Excessive And Redundant Skin And Subcutaneous Tissue documented as of this encounter Visit Diagnoses Not on filedocumented in this encounter Additional Health Concerns Assessment Noted Time PHQ-9 Depression Total Score: 13 08/21/2017 12:55 PM C DT documented as of this encounter Care Teams Crown Assembly Machine Set Up Mechanic Relationship Specialty Start Date End Date nAnemarie Montiel M.D. PCP - General 04/19/[address] [phone] documented as of this encounter
--- OUTSIDE RECORDS SUMMARY | 2022-07-25 09:14 | XMS_ITS | Encounter Summary ---
:1985 Author Organization [facility] Address [address] [place] [address] Care Team Providers Name Role Phone Unavailable Primary Care Provider Unavailable Encounter Details Date Type Department Care Team Description 10/16/2016 Hospital Encounter HX [facility] Kristi Melissa M.D. [address] [place], [place] [phone] (Wo rk) Social History [...] often do you attend latter day or gnosticist Never 07/04/2019 services? 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 - 10/16/2016 2:34 PM CST Results Notification Document Contains Addenda Addendum by TONYA DEL RIO LPN on October 17, 2016 09:09:35 WINDOWS SYSTEMS ARCHITECT added to chart. From: KRISTI MELISSA MD To: RADHA HAMMOND RN; Sent: 10/16/2016 14:34:05 WINDOWS SYSTEMS ARCHITECT ! Show up: 10/16/2016 14:34:05 WINDOWS SYSTEMS ARCHITECT Subject: Results Notification Actions: Note to Nurse Reminder Comments: Please add 24 hour urine protein result to chart. Please add [id number] to chart to ask her about the amount. Results: Date Result Name Ind Value Ref Range 10/16/2016 11:04 Ur Volume 24 mL 10/16/2016 11:04 Ur Brenda Hrs 875 10/16/2016 11:04 U24 Protein 4 mg/24hr ( - <=150) 10/16/2016 11:04 U24 Creatinine (L) 42 mg/24hr (601 - 1,689) 10/16/2016 11:04 U Protein 15 mg/dL 10/16/2016 11:04 U Creatinine 174 mg/dL (29 - 226) Source: [facility] POWERCHART Document Id: [id number] Electronically signed by Conversion, [facility] Vegetable Canner [id number] at 04/01/2017 7:17 AM CDT documented in this encounter Plan of Treatment Upcoming Encounters Date Type Specialty Care Team Description 08/17/2022 Procedure visit Neurology Marina Winter M.D., M.P.H. [address] [phone] (Wo rk) Scheduled Procedures Name Priority Associated Diagnoses Date/Time LIFT THIGH Excessive And Redundant Skin And Subcutaneous Tissue documented as of this encounter Procedures Procedure Name Priority Date/Time Associated Diagnosis Comme nts URINE VOLUME Routine 10/16/2016 11:04 AM Results for this WINDOWS SYSTEMS ARCHITECT procedure are i n the results section. CREATININE, U Routine 10/16/2016 11:04 AM Results for this WINDOWS SYSTEMS ARCHITECT procedure are i n the results section. PROTEIN, TOTAL, 24 Routine 10/16/2016 11:04 AM Re sults for this HR, U WINDOWS SYSTEMS ARCHITECT procedure are i n the results section. documented in this encounter Results Urine Volume (10/16/2016 11:04 AM WINDOWS SYSTEMS ARCHITECT) athologist Signature Collection 875 POWERCHART Duration Urine Volume 24 ML POWERCHART Specimen Anatomical Collection Method Collection Time Receive d Time (Source) Location / / Volume Laterality Urine 10/16/2016 11:04 10/16/2016 AM WINDOWS SYSTEMS ARCHITECT 11:04 AM WINDOWS SYSTEMS ARCHITECT Authorizing Provider Result Lupis Mleissa M.D. LAB URINE ORDERABLES Performing Organization Address City/State/ZIP Code Phon e Number POWERCHART (ABNORMAL) Creatinine, 24 Hour, Urine (10/16/2016 11:04 AM WINDOWS SYSTEMS ARCHITECT) athologist Signature Creatinine, 174 29 - 226 [...] / Volume Laterality Urine 10/16/2016 11:04 AM WINDOWS SYSTEMS ARCHITECT Authorizing Provider Result Lupis Melissa M.D. LAB URINE ORDERABLES Performing Organization Address City/State/ZIP Code Phon e Number POWERCHART Protein, Total, 24 Hour, Urine (10/16/2016 11:04 AM WINDOWS SYSTEMS ARCHITECT) athologist Signature Protein, U 15 MGDL POWERCHART Predicted 24 Hr 4 <=150 POWERCHART Protein MG24HR Specimen (Source) Anatomical Collection Method Collection Time Re ceived Time Location / / Volume Laterality Urine 10/16/2016 11:04 AM WINDOWS SYSTEMS ARCHITECT Authorizing Provider Result Lupis Melissa M.D. LAB URINE ORDERABLES Performing Organization Address City/State/ZIP Code Phon e Number POWERCHART documented in this encounter Visit Diagnoses Not on filedocumented in this encounter Additional Health Concerns Assessment Noted Time PHQ-9 Depression Total Score: 13 06/14/2015 3:56 PM CD T documented as of this encounter
--- OUTSIDE RECORDS SUMMARY | 2022-07-25 09:14 | XMS_ITS | Encounter Summary ---
:1985 Author Organization [facility] Address [address] [place] [address] Care Team Providers Name Role Phone Unavailable Primary Care Provider Unavailable Encounter Details Date Type Department Care Team Description 12/01/2016 Hospital Encounter HX [facility] Ranjit Lee M.D. [address] [place], [place] [phone] (Wo rk) Social History [...] How often do you attend uatsdin or worship Never 07/04/2019 services? 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 - 12/01/2016 12:45 PM CST [id number] CHIEF COMPLAINT/REASON FOR VISIT OB followup and [...] any concerns about abuse. She is a [id number] mom. FAMILY HISTORY Paternal grandfather and paternal [...] MELISSA MD On: 12/01/2016 03:03 PM Source: [facility] MHSDOLBEYNONRADSYS Document Id: [id number] E AND WEIGH MACHINE ADJUSTER documented in this encounter Procedure Notes Tonya العلي L.P.N. - 12/01/2016 1:02 PM CST Urine Dipstick Urine Dipstick Entered On: 12/01/2016 13:03 GAUGE AND WEIGH MACHINE ADJUSTER Performed On: 12/01/2016 13:02 GAUGE AND WEIGH MACHINE ADJUSTER by TONYA العلي LPN Urine Dipstick UA [...] Negative TONYA العلي LPN - 12/01/2016 13:02 GAUGE AND WEIGH MACHINE ADJUSTER Source: [facility] POWERCHART Document Id: [id number] GAUGE AND WEIGH MACHINE ADJUSTER!14 E AND WEIGH MACHINE ADJUSTER documented in this encounter Miscellaneous Notes Telephone Encounter - Conversion, Historical Provider Ser - 12/06/2016 11:33 AM CST *Phone Message/Dr. Hathaway Document Contains Addenda Addendum by KIT HATHAWAY MD on December 06, 2016 12:14:20 GAUGE AND WEIGH MACHINE ADJUSTER From: KIT HATHAWAY MD To: Obstetrics/Gynecology Nurse; Sent: 12/06/2016 12:14:20 GAUGE AND WEIGH MACHINE ADJUSTER Subject: RE: *Phone Message/Dr. Hathaway agree with this plan. Addendum by RADHA HAMMOND RN on December 06, 2016 11:56:36 GAUGE AND WEIGH MACHINE ADJUSTER From: RADHA HAMMOND RN ( Obstetrics/Gynecology Nurse) To: KIT HATHAWAY MD; Sent: 12/06/2016 11:56:36 GAUGE AND WEIGH MACHINE ADJUSTER Subject: FW: *Phone Message/Dr. Hathaway Spoke with [...] 911 immediately. Nancy states understanding. I notified Nancy that I would be forwarding her message to the assembler ping pong table physician to see if he has any further advice. From: SANDRA DIETZ ( [place] Billet Shearer) To: Obstetrics/Gynecology Nurse; Sent: 12/06/2016 11:33:01 GAUGE AND WEIGH MACHINE ADJUSTER Subject: *Phone Message/Dr. Hathaway Caller is: ( [...] in today. Please call her back at [phone] to advise. Advice/Action: Source used: ( ) [...] back cell phone number ( ) Source: [facility] [employer] Document Id: [id number] Miscellaneous - Cassie Melissa M.D. - 12/01/2016 2:10 PM CST Ambulatory Patient Summary [employer] [facility] [address] [place] [id number] Visit Information Name: NANCY PHILLIPS [facility] Number: [id number] Current Date: 12/01/2016 14:10:31 Physicians [...] Appointments Date Time Location Provider 12/27/2016 09:45 [facility] Dinesh RED, Nicki Zuniga Attention: Contact [...] if you dont have one. Go to [email or web address] and click on Create Your Account. Then, follow the directions to complete the online form. Youll be asked for your [facility] number which you can find at the top of this document. Your Goals/Additional instructions: Source: [facility] POWERCHART Document Id: [id number] E AND WEIGH MACHINE ADJUSTER Miscellaneous - Cassie Melissa M.D. - 12/01/2016 2:10 PM CST Ambulatory Discharge Medication List [address] [id number] Visit Information Name: NANCY PHILLIPS [facility] Number: [id number] Current Date: 12/01/2016 14:10:30 Attending Provider: CASSIE MELISSA MD Primary Care Provider: MAILE ZAARTE MD NANCY PHILLIPS has been given the [...] MD Signed On:01-DEC-2016 14:10:26 Additional Information: Source: [facility] POWERCHART Document Id: [id number] E AND WEIGH MACHINE ADJUSTER Bunny - Tonya العلي, L.P.N. - 12/01/2016 1:45 PM CST Ambulatory Vitals Height Weight Ambulatory Vitals Height Weight Entered On: 12/01/2016 13:45 GAUGE AND WEIGH MACHINE ADJUSTER Performed On: 12/01/2016 13:45 GAUGE AND WEIGH MACHINE ADJUSTER by TONYA العلي SHEET ROCK APPLIER Vitals/Ht/Wt Systolic Blood Pressure : 138 mmHg Diastolic Blood Pressure : 90 mmHg (HI) NIBP Mean : 106 mmHg BP Location : Right upper extremity Blood Pressure Cuff Size : Large Height : 164 cm(Converted to: 5 ft 5 inch(es), 65 inch(es)) TONYA العلي LPN - 12/01/2016 13:45 GAUGE AND WEIGH MACHINE ADJUSTER [facility] Document Id: [id number] GAUGE AND WEIGH MACHINE ADJUSTER!8 E AND WEIGH MACHINE ADJUSTER Miscellaneous - Tonya العلي L.P.NRodrigo - 12/01/2016 1:44 PM CST Camera Storage Clerk Documentation Camera Storage Clerk Documentation Entered On: 12/01/2016 13:45 GAUGE AND WEIGH MACHINE ADJUSTER Performed On: 12/01/2016 13:44 GAUGE AND WEIGH MACHINE ADJUSTER by TONYA العلي LPN Camera Storage Clerk Documentation Exam/Procedure Performed : Cervical exam CD Camera Storage Clerk Present : Yes CD Camera Storage Clerk Name : Susana PRADEEP العلي Present in Room During Exam/Procedure : Friend TONYA العلي LPN - 12/01/2016 13:44 GAUGE AND WEIGH MACHINE ADJUSTER [facility] Document Id: [id number] GAUGE AND WEIGH MACHINE ADJUSTER!6 E AND WEIGH MACHINE ADJUSTER Miscellaneous - Tonya العلي L.P.N. - 12/01/2016 12:54 PM CST Adult Deputy Grand Jury Intake/History Adult Deputy Grand Jury Intake/History Entered On: 12/01/2016 12:57 GAUGE AND WEIGH MACHINE ADJUSTER Performed On: 12/01/2016 12:54 GAUGE AND WEIGH MACHINE ADJUSTER by TONYA العلي LPN Intake Chief Complaint [...] kg/m2 ELIANETONYA Marie PRADEEP - 12/01/2016 12:54 GAUGE AND WEIGH MACHINE ADJUSTER General Info Languages : Setswana Is Patient Female and 13-50 no hysterectomy : Yes Status : Confirmed positive Are you ? : No ELIANETONYA Marie Nadia FERNÁNDEZ - 12/01/2016 12:54 GAUGE AND WEIGH MACHINE ADJUSTER Subjective Pain Symptoms : No ELIANE TONYA Zuniga PRADEEP - 12/01/2016 12:54 GAUGE AND WEIGH MACHINE ADJUSTER Dependent Habits Exposure to Tobacco Smoke : Other: never Smoking Status : Never smoker Tobacco 2A : No Tobacco Use/Currently Using : No Tobacco Use/Last 30 Days : No Tobacco Use/Last 12 months : No ELIANE TONYA Nadia FERNÁNDEZ - 12/01/2016 12:54 GAUGE AND WEIGH MACHINE ADJUSTER Caffeine Use Grid Caffeine Use : Current Type : Soft drinks Frequency : Daily Amount : regular 1-2 cans daily ELIANEANURAGTONYAJENNYFER Zuniga LPN - 12/01/2016 12:54 GAUGE AND WEIGH MACHINE ADJUSTER Source: [facility] POWERCHART Document Id: [id number] GAUGE AND WEIGH MACHINE ADJUSTER!35 E AND WEIGH MACHINE ADJUSTER documented in this encounter Plan of Treatment Upcoming Encounters Date Type Specialty Care Team Description 08/17/2022 Procedure visit Neurology Marina Winter M.D., M.P.H. [address] [phone] (Wo rk) Scheduled Procedures Name Priority Associated Diagnoses Date/Time LIFT THIGH Excessive And Redundant Skin And Subcutaneous Tissue documented as of this encounter Procedures Procedure Name Priority Date/Time Associated Comments Diagnosis DIPSTICK, POCT, U Routine 12/01/2016 1:02 PM Resu lts for this (NURSING) INTERFACED GAUGE AND WEIGH MACHINE ADJUSTER procedu re are in the results section. documented in this encounter Results Dipstick, POCT, Urine (nursing) (12/01/2016 1:02 PM GAUGE AND WEIGH MACHINE ADJUSTER) [facility] Method Time Signature Color Yellow POWERCHART Appearance Clear POWERCHART Leukocytes, 1+ Small POWERCHART POCT, U Nitrites, Negative POWERCHART POCT, U Urobilinogen, 0.2 mg/dl POWERCHART POCT, Urine Protein, POCT, 1+ (30 POWERCHART U mg/dl) pH, POCT, 5.5 5.0 - 9.0 POWERCHART Urine Blood, POCT, U 1+ SMALL POWERCHART Specific 1.030 1.000 - POWERCHART [place], POCT, 1.030 U Ketone, POCT, Negative POWERCHART U Bilirubin, 1+ Small POWERCHART POCT, U Glucose, POCT, Negative POWERCHART U Specimen (Source) Anatomical Collection Method Collection Time Re ceived Time Location / / Volume Laterality 12/01/2016 1:02 PM GAUGE AND WEIGH MACHINE ADJUSTER Cassie Melissa M.D. LAB POCT ORDERABLES - DEVICE Performing Organization Address City/State/ZIP Code Phon e Number POWERCHART documented in this encounter Visit Diagnoses Not on filedocumented in this encounter Additional Health Concerns Assessment Noted Time PHQ-9 Depression Total Score: 13 06/14/2015 3:56 PM CD T documented as of this encounter
--- OUTSIDE RECORDS SUMMARY | 2022-07-25 09:14 | XMS_ITS | Encounter Summary ---
:1985 Author Organization [facility] Address [address] [place] [address] Care Team Providers Name Role Phone Unavailable Primary Care Provider Unavailable Encounter Details Date Type Department Care Team Description 01/11/2017 Hospital Encounter [facility]X [facility] Ranjit Lee M.D. [address], [place] [phone] (Wo rk) Social History [...] How often do you attend scientologist or yazidism Never 07/04/2019 services? 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 documented as of this encounter Last Filed Vital Signs Vital Sign Reading Time Taken Comments Blood Pressure 110/74 01/11/2017 10:23 AM WELL LOGGING OPERATOR MUD ANALYSIS Pulse - - Temperature - - Respiratory Rate - - Oxygen Saturation - - Inhaled Oxygen Concentration - - Weight 117 kg (257 lb 15 oz) 01/11/2017 10:23 AM WELL LOGGING OPERATOR MUD ANALYSIS Height 164 cm (5' 4.57) 01/11/2017 10:01 AM WELL LOGGING OPERATOR MUD ANALYSIS Body Mass Index 43.5 01/11/2017 10:01 AM WELL LOGGING OPERATOR MUD ANALYSIS documented in this encounter Medications at Time of Discharge Medication Sig Dispensed Refills Start Date End Date venlafaxine XR (EFFEXOR Take 1 capsule by 0 12/2703/27/2018 XR) 75 mg 24 hr capsule mouth daily. documented as of this encounter H&P Notes Kristi Melissa M.D. - 01/11/2017 10:01 AM CST [id number] REVISION HISTORY January 17, 2017 at 7:31 [...] she parked in the parking lot at [employer] or what she is going to say [...] procedure list updated in the EMR today. CASE INVESTIGATOR HISTORY: Para 4-0-1-4 female status post 4 [...] to her , Samir and is a ffwu-dt-wtde mom. She denies alcohol, tobacco or drug [...] MELISSA MD On: 01/20/2017 04:00 PM Source: [facility] MHSDOLBEYNONRADSYS Document Id: [id number] documented in this encounter Miscellaneous Notes Miscellaneous - Kristi Melissa M.D. - 01/15/2017 7:22 PM CDT Ambulatory Discharge Medication List [address] [id number] Visit Information Name: NANCY PHILLIPS [facility] Number: [id number] Current Date: 01/15/2017 19:22:53 Attending [...] MD Signed On:15-JAN-2017 19:22:52 Additional Information: Source: [facility] POWERCHART Document Id: [id number] Miscellaneous - Kristi Melissa M.D. - 01/15/2017 7:22 PM CDT Ambulatory Patient Summary [address] [id number] Visit Information Name: NANCY PHILLIPS [facility] Number: [id number] Current Date: 01/15/2017 19:22:54 Physicians [...] Appointments Date Time Location Provider 01/24/2017 13:30 [facility] Mammo [facility] Clinic ID Room 2 01/24/2017 15:00 [facility] Ultrasound [facility] Room 1 02/07/2017 09:[address] [facility] Shot Clinic 03/27/2017 11:30 [facility] FamilyPrac Dinesh RED, Nicki Zuniga Attention: Contact [...] if you dont have one. Go to [email or web address] and click on Create Your Account. Then, follow the directions to complete the online form. Youll be asked for your [facility] number which you can find at the top of this document. Your Goals/Additional instructions: Source: [facility] Drik Document Id: [id number] Miscellaneous - Martha Lomeli L.PCiera - 01/11/2017 10:23 AM CST Adult Retail Sales Consultant Intake/History Adult Retail Sales Consultant Intake/History Entered On: 01/11/2017 10:25 WELL LOGGING OPERATOR MUD ANALYSIS Performed On: 01/11/2017 10:23 WELL LOGGING OPERATOR MUD ANALYSIS by MARTHA LOMELI LPN Intake Chief Complaint : pp c/s 12/01 Systolic Blood Pressure : 110 mmHg Diastolic Blood Pressure : 74 mmHg NIBP Mean : 86 mmHg Blood Pressure Cuff Size : Regular Actual Weight : 117 kg(Converted to: 257 lb 15 oz) Dosing Weight Clinic : 117 kg MARTHA LOMELI LPN - 01/11/2017 10:23 WELL LOGGING OPERATOR MUD ANALYSIS General Info Information Given By : Patient Languages : Northern Irish Is Patient Female and 13-50 no hysterectomy : MARTHA Wilson LPN - 01/11/2017 10:23 WELL LOGGING OPERATOR MUD ANALYSIS Subjective Pain Symptoms : MARTHA Wilson LPN - 01/11/2017 10:23 WELL LOGGING OPERATOR MUD ANALYSIS Dependent Habits Exposure to Tobacco Smoke : Other: never Smoking Status : Never smoker Tobacco 2A : No Tobacco Use/Currently Using : No Tobacco Use/Last 30 Days : No Tobacco Use/Last 12 months : No MARTHA LOMELI LPN - 01/11/2017 10:23 WELL LOGGING OPERATOR MUD ANALYSIS Caffeine Use Grid Caffeine Use : Current Type : Soft drinks Frequency : Daily Amount : regular 1-2 cans daily MARTHA LOMELI LPN - 01/11/2017 10:23 WELL LOGGING OPERATOR MUD ANALYSIS [facility] Document Id: [id number] WELL LOGGING OPERATOR MUD ANALYSIS!28 LOGGING OPERATOR MUD ANALYSIS documented in this encounter Plan of Treatment Upcoming Encounters Date Type Specialty Care Team Description 08/17/2022 Procedure visit Neurology Marina Winter M.D., M.P.H. [address] [phone] (Wo rk) Scheduled Procedures Name Priority Associated Diagnoses Date/Time LIFT THIGH Excessive And Redundant Skin And Subcutaneous Tissue documented as of this encounter Procedures Procedure Name Priority Date/Time Associated Diagnosis Comme nts VAGINITIS BATTERY, Routine 01/11/2017 1:04 PM Res ults for this DNA (GENITAL) WELL LOGGING OPERATOR MUD ANALYSIS procedure are in the results section. documented in this encounter Results VAGINITIS BATTERY, DNA (GENITAL) (01/11/2017 1:04 PM WELL LOGGING OPERATOR MUD ANALYSIS) Component Value Ref Test Analysis Performed At [facility] Range Method Time Signature HXVaginitis POWERCHART Battery, DNA (Genital) HXFinal Trichomonas POWERCHART vaginalis DNA negative HXFinal Gardnerella POWERCHART vaginalis DNA negative HXFinal Heidi species POWERCHART DNA negative HXFinal Reference: POWERCHART Negative Specimen (Source) Anatomical Collection Method Collection Time Re ceived Time Location / / Volume Laterality Vagina 01/11/2017 1:04 PM WELL LOGGING OPERATOR MUD ANALYSIS Kristi Melissa M.D. LAB HISTORICAL ORDERS Performing Organization Address City/State/ZIP Code Phon e Number POWERCHART documented in this encounter Visit Diagnoses Not on filedocumented in this encounter Additional Health Concerns Assessment Noted Time PHQ-9 Depression Total Score: 9 12/27/2016 10:29 AM CS T documented as of this encounter
--- OUTSIDE RECORDS SUMMARY | 2022-07-25 09:14 | XMS_ITS | Encounter Summary ---
:1985 Author Organization [facility] Address [address] [place] [address] Care Team Providers Name Role Phone Unavailable Primary Care Provider Unavailable Encounter Details Date Type Department Care Team Description 12/01/2016 Hospital Encounter HX [facility] Cassie Bruno M.D. [address] [place] [phone] Social History Tobacco Use Types [...] How often do you attend mu-ism or restoration Never 07/04/2019 services? 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 10:53 AM INTAKE CLINICIAN documented as of this encounter Plan of Treatment Upcoming Encounters Date Type Specialty Care Team Description 08/17/2022 Procedure visit Neurology Marina Winter M.D., M.P.H. [address] [phone] (Wo rk) Scheduled Procedures Name Priority Associated Diagnoses Date/Time LIFT THIGH Excessive And Redundant Skin And Subcutaneous Tissue documented as of this encounter Procedures Procedure Name Priority Date/Time Associated Diagnosis Comme nts SURGICAL PATHOLOGY Routine 12/01/2016 12:00 AM Re sults for this INTAKE CLINICIAN procedure are i n the results section. SURGICAL PATHOLOGY Routine 12/01/2016 12:00 AM Re sults for this INTAKE CLINICIAN procedure are i n the results section. documented in this encounter Results Pathology Surgical Pathology (12/01/2016 12:00 AM INTAKE CLINICIAN) Specimen (Source) Anatomical Location Collection Method / Collectio n Time Received Time / Laterality Volume 12/01/2016 Narrative [facility] - 12/07/2016 5:17 PM INTAKE CLINICIAN PATIENT IMAGES Choose the Image button to view related documents. Historical Provider LAB SURG PATH ORDERABLES Performing Organization Address City/State/ZIP Code Phon e Number [facility] Pathology Surgical Pathology (12/01/2016 12:00 AM INTAKE CLINICIAN) Specimen (Source) Anatomical Location Collection Method / Collectio n Time Received Time / Laterality Volume 12/01/2016 Narrative [facility] - 12/07/2016 5:18 PM INTAKE CLINICIAN PATIENT IMAGES Choose the Image button to [...]
--- OUTSIDE RECORDS SUMMARY | 2022-07-25 09:14 | XMS_ITS | Encounter Summary ---
:1985 Author Organization [facility] Address [address] [place] [address] Care Team Providers Name Role Phone Unavailable Primary Care Provider Unavailable Encounter Details Date Type Department Care Team Description 12/15/2016 Hospital Encounter HX [facility] Ranjit Lee M.D. [address], [place] [phone] (Wo rk) Social History [...] How often do you attend gnosticism or shinto Never 07/04/2019 services? 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 10:53 AM DIGESTER COOK documented as of this encounter Last Filed Vital Signs Vital Sign Reading Time Taken Comments Blood Pressure 132/80 12/15/2016 2:20 PM DIGESTER COOK Pulse 78 12/15/2016 2:20 PM DIGESTER COOK Temperature - - Respiratory Rate 16 12/15/2016 2:20 PM DIGESTER COOK Oxygen Saturation - - Inhaled Oxygen Concentration - - Weight 117 kg (258 lb 13.1 oz) 12/15/2016 2:20 PM DIGESTER COOK Height 164 cm (5' 4.57) 12/15/2016 2:20 PM DIGESTER COOK Body Mass Index 43.65 12/15/2016 2:20 PM DIGESTER COOK documented in this encounter Progress Notes Kristi Melissa M.D. - 12/15/2016 1:46 PM CST [id number] CHIEF COMPLAINT/REASON FOR VISIT Postop check. HISTORY [...] MELISSA MD On: 12/21/2016 01:08 PM Source: [facility] MHSDOLBEYNONRADSYS Document Id: [id number] STER COOK documented in this encounter Miscellaneous Notes Miscellaneous - Kristi Melissa M.D. - 12/15/2016 3:24 PM CST Ambulatory Discharge Medication List [facility] [address] [place] [phone] Visit Information Name: NANCY PHILLIPS [facility] Number: [id number] Current Date: 12/15/2016 15:24:04 Attending [...] for pain with food New Routed to [facility] [address] [place] [address] venlafaxine (Effexor XR 75 mg oral capsule, [...] MD Signed On:15-DEC-2016 15:24:03 Additional Information: Source: [facility] POWERCHART Document Id: [id number] STER COOK Miscellaneous - Kristi Melissa M.D. - 12/15/2016 3:24 PM CST Ambulatory Patient Summary [address] [address] [address] [place] [id number] Visit Information Name: NANCY PHILLIPS [facility] Number: [id number] Current Date: 12/15/2016 15:24:05 Physicians Attending Provider: KRISTI MELISSA MD Primary Care Provider: MAIEL MONTIEL MD NANCY PHILLIPS has been given [...] for pain with food New Routed to [facility] [address] [facility] [place] [address] venlafaxine (Effexor XR 75 mg oral capsule, [...] By: KRISTI MELISSA MD Signed On:15-DEC-2016 15:24:03 Your Allergies [...] Date Time Location Provider 12/27/2016 09:45 [facility]i Montiel MD 01/11/2017 13:15 [facility] NETWORK RELATIONS CONSULTANT Emmy RED, Kristi Attention: Contact your local [...] online form. Youll be asked for your [facility] number which you can find at the top of this document. Your Goals/Additional instructions: Source: [facility] POWERCHART Document Id: [id number] STER COOK Miscellaneous - Alxeandra العلي L.P.N. - 12/15/2016 2:20 PM CST Adult Operations Mgr Intake/History Adult Operations Mgr Intake/History Entered On: 12/15/2016 14:21 DIGESTER COOK Performed On: 12/15/2016 14:20 DIGESTER COOK by ALEXANDRA العلي LPN Intake Chief Complaint [...] kg/m2 ALEXANDRA العلي LPN - 12/15/2016 14:20 DIGESTER COOK General Info Languages : Hebrew Is Patient Female and 13-50 no hysterectomy : Yes Status : Patient denies Are you ? : No ALEXANDRA العلي LPN - 12/15/2016 14:20 DIGESTER COOK Subjective Pain Symptoms : No ALEXANDRA العلي LPN - 12/15/2016 14:20 DIGESTER COOK Dependent Habits Exposure to Tobacco Smoke : Other: never Smoking Status : Never smoker Tobacco 2A : No Tobacco Use/Currently Using : No Tobacco Use/Last 30 Days : No Tobacco Use/Last 12 months : No ALEXANDRA العلي LPN - 12/15/2016 14:20 DIGESTER COOK Caffeine Use Grid Caffeine Use : Current Type : Soft drinks Frequency : Daily Amount : regular 1-2 cans daily ALEXANDRA العلي LPN - 12/15/2016 14:20 DIGESTER COOK Source: [facility] POWERCHART Document Id: [id number] DIGESTER COOK!37 STER COOK documented in this encounter Plan of Treatment Upcoming Encounters Date Type Specialty Care Team Description 08/17/2022 Procedure visit Neurology Marina Winter M.D., M.P.H. [address] [place], [place] [phone] (Wo rk) Scheduled Procedures Name Priority Associated Diagnoses Date/Time LIFT THIGH Excessive And Redundant Skin And Subcutaneous Tissue documented as of this encounter Visit Diagnoses Not on filedocumented in this encounter Additional Health Concerns Assessment Noted Time PHQ-9 Depression Total Score: 13 06/14/2015 3:56 PM CD T documented as of this encounter
--- OUTSIDE RECORDS SUMMARY | 2022-07-25 09:14 | XMS_ITS | Encounter Summary ---
:1985 Author Organization [facility] Address [address] [place] [address] Care Team Providers Name Role Phone Unavailable Primary Care Provider Unavailable Encounter Details Date Type Department Care Team Description 11/21/2016 Hospital Encounter HX [facility] Cassie Lincoln M.D. [address] [address] Social History Tobacco Use Types [...] How often do you attend christianity or lutheran Never 07/04/2019 services? 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 [address] [phone] (Wo rk) Scheduled Procedures Name Priority Associated Diagnoses Date/Time LIFT THIGH Excessive And Redundant Skin And Subcutaneous Tissue documented as of this encounter Visit Diagnoses Not on filedocumented in this encounter Additional Health Concerns Assessment Noted Time PHQ-9 Depression Total Score: 13 06/14/2015 3:56 PM CD T documented as of this encounter
--- OUTSIDE RECORDS SUMMARY | 2022-07-25 09:14 | XMS_ITS | Encounter Summary ---
:[address] [facility] Address [address] [place] [address] Care Team Providers Name Role Phone Unavailable Primary Care Provider Unavailable Encounter Details Date Type Department Care Team Description 03/27/2017 Hospital Encounter HX [facility] Meche Montiel M.D. [address] [place] [phone] (Wo rk) Social History Tobacco [...] How often do you attend buddhism or adventism Never 07/04/2019 services? 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 - 03/27/2017 11:19 AM CDT [id number] CHIEF COMPLAINT / REASON FOR VISIT Follow [...] It was created on their behalf by Regige Cohen, a trained medical practice assistant. The creation of this record is basedon the scribe's personal observations and the provider's statements to them. This document has been c hecked and approved by the attending provider. Annemarie Montiel M.D./lisa Electronically Signed By: ANNEMARIE MONTIEL MD On: 04/08/2017 09:46 AM Source: [facility] MHSDOLBEYNONRADSYS Document Id: [id number] documented in this encounter Miscellaneous Notes Miscellaneous - Nereyda Borges - 04/30/2017 10:24 AM CDT Med Management Document Contains Addenda Addendum by ANNEMARIE MONTIEL MD on April 30, 2017 12:53:13 CDT Approved with modifications: Order:naproxen (naproxen 250 mg oral tablet) 1 tab(s) PO 2xDay with food Qty: 30 tab(s) Refills: 4 Substitutions Allowed PRN pain Route To Pharmacy - [facility] 982 Signed by ANNEMARIE MONTIEL MD 04/30/2017 12:53:08 From: NEREYDA BORGES ENVIRONMENTAL SCIENCE PROFESSOR ([facility] 2W Nurse) To: ANNEMARIE MONTIEL MD; Sent: 04/30/2017 10:24:35 CDT Subject: Med Management On hold pending signature Order:naproxen (naproxen 250 mg oral tablet) 1 tab(s) PO 2xDay with food Qty: 30 tab(s) Refills: 1 Substitutions Allowed PRN pain Route To Pharmacy - [facility] 982 Caller is: ( ) Patient [...] Call to Pharmacy ( ) Patient will apple picker Script ( ) Mail Rx to Patient Source: [facility] POWERCHART Document Id: [id number] Miscellaneous - Annemarie Montiel M.D. - 03/27/2017 12:36 PM CDT Ambulatory Patient Summary [facility] [address] [place] [id number] Visit Information Name: NANCY PHILLIPS [facility] Number: [id number] Current Date: 03/27/2017 12:36:15 [...] increase to twice daily New Routed to [facility] [address] [place] [address] venlafaxine (Effexor XR 75 mg oral capsule, [...] if you dont have one. Go to [email or web address] and click on Create Your Account. Then, follow the directions to complete the online form. Youll be asked for your [facility] number which you can find at the top of this document. Your Goals/Additional instructions: Source: [facility] POWERCHART Document Id: [id number] Miscellaneous - Annemarie Montiel M.D. - 03/27/2017 12:36 PM CDT Ambulatory Discharge Medication List [address] [id number] Visit Information Name: ALAN NANCY JOHNSON 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/History Entered On: 03/27/2017 12:00 CDT Performed On: 03/27/2017 11:58 CDT by JOAQUINA GRANDA [facility] Intake Chief Complaint : follow up [...] Mass Index : 45.47 kg/m2 JOAQUINA GRANDA [facility] - 03/27/2017 11:58 CDT General Info Information Given By : Patient Languages : Romanian Is Patient Female and 13-50 no hysterectomy : No JOAQUINA GRANDA [facility] - 03/27/2017 11:58 CDT Subjective Pain Symptoms : No JOAQUINA GRANDA [facility] - 03/27/2017 11:58 CDT Dependent Habits Exposure to Tobacco Smoke : Other: never Smoking Status : Never smoker Tobacco 2A : No Tobacco Use/Currently Using : No Tobacco Use/Last 30 Days : No Tobacco Use/Last 12 months : No JOAQUINA GRANDA [facility] - 03/27/2017 11:58 CDT Caffeine Use Grid Caffeine Use : Current Type : Soft drinks Frequency : Daily Amount : regular 1-2 cans daily JOAQUINA GRANDA [facility] - 03/27/2017 11:58 CDT Source: [facility] POWERCHART Document Id: [id number] CDT!35 documented in this encounter Plan of Treatment Upcoming Encounters Date Type Specialty Care Team Description 08/17/2022 Procedure visit Neurology Marina Winter M.D., M.P.H. [address] [phone] (Wo rk) Scheduled Procedures Name Priority Associated Diagnoses Date/Time LIFT THIGH Excessive And Redundant Skin And Subcutaneous Tissue documented as of this encounter Visit Diagnoses Not on filedocumented in this encounter Additional Health Concerns Assessment Noted Time PHQ-9 Depression Total Score: 9 12/27/2016 10:29 AM CS T documented as of this encounter
--- OUTSIDE RECORDS SUMMARY | 2022-07-25 09:14 | XMS_ITS | Encounter Summary ---
:1985 Author Organization [facility] Address [address] [place] [address] Care Team Providers Name Role Phone Unavailable Primary Care Provider Unavailable Encounter Details Date Type Department Care Team Description 12/27/2016 Hospital Encounter HX [facility] Meche Montiel M.D. [address] [place] [address] (Wo rk) Social History Tobacco [...] How often do you attend yarsani or protestant Never 07/04/2019 services? 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 documented as of this encounter Last Filed Vital Signs Vital Sign Reading Time Taken Comments Blood Pressure 120/82 12/27/2016 9:37 AM DIRECTOR EDUCATION Pulse 78 12/27/2016 9:37 AM DIRECTOR EDUCATION Temperature - - Respiratory Rate 16 12/27/2016 9:37 AM DIRECTOR EDUCATION Oxygen Saturation - - Inhaled Oxygen Concentration - - Weight 119 kg (261 lb 14.5 oz) 12/27/2016 9:37 AM DIRECTOR EDUCATION Height 164 cm (5' 4.57) 12/27/2016 9:37 AM DIRECTOR EDUCATION Body Mass Index 44.17 12/27/2016 9:37 AM DIRECTOR EDUCATION documented in this encounter Medications at Time of Discharge Medication Sig Dispensed Refills Start Date End Date venlafaxine XR (EFFEXOR Take 1 capsule by 0 12/2703/27/2018 XR) 75 mg 24 hr capsule mouth daily. documented as of this encounter Progress Notes Annemarie Montiel M.D. - 12/27/2016 9:28 AM CST [id number] CHIEF COMPLAINT / REASON FOR VISIT Medication [...] their behalf by Reggie Cohen, a trained certified medical coding specialist. The creation of this record is basedon the scribe's personal observations and the provider's statements to them. This document has been c hecked and approved by the attending provider. Annemarie Montiel M.D./lesley Electronically Signed By: ANNEMARIE MONTIEL MD On: 12/30/2016 02:03 PM [facility] Document Id: [id number] CTOR EDUCATION documented in this encounter Miscellaneous Notes Miscellaneous - Lisa Andrade C.M.A. - 02/05/2017 3:15 PM CDT Med Management Document Contains Addenda Addendum by OLIVA WRIGHT CMA on February 06, 2017 10:40:22 CDT Patient stated that she has an appt with [facility] tomorrow. Addendum by BRENT AGUILAR on February 06, 2017 10:27:21 CDT Patient returning call to nurse, please call back [phone] Addendum by OLIVA WRIGHT CMA on February 06, 2017 09:44:48 CDT Left message to call back. Addendum by ANNEMARIE MONTIEL MD on February 05, 2017 19:16:28 CDT From: ANNEMARIE MONTIEL MD To: [facility] 2W Nurse; Sent: 02/05/2017 19:16:28 CDT Subject: RE: Med Management Needs weight and BP check via [facility]. From: LISA ANDRADE CMA ([facility] 2W Nurse) To: ANNEMARIE MONTIEL MD; Sent: 02/05/2017 15:15:28 CDT Subject: Med Management On hold pending signature Order:phentermine (phentermine 37.5 mg oral tablet) 1 tab(s) PO Daily Qty: 42 tab(s) Refills: 0 Substitutions Allowed Print - [id number] Caller is: ( ) Patient ( ) Mother ( ) Father ( ) Spouse ( ) Daughter ( ) Son ( ) Pharmacy ( ) Other: Provider: jeyson Pharmacy: [facility] [place] Name of Medications Needing Refill: Phentermine 37.5 mg Last Refill Date: 12/27/2016 Additional Information: Last / Future Appointment: last apt. 12/27/2016 future apt. 03/27/2017 Disposition: ( x ) Send to Pharmacy ( ) Call to Pharmacy ( ) Patient will fern picker Script ( ) Mail Rxto Patient Source: [facility] POWERCHART Document Id: [id number] Electronically signed by Maria R [facility] Phototypesetting Equipment Monitor [id number] at 04/17/2017 1:16 AM CDT Miscellaneous - Oliva Wright, C.M.A. - 12/27/2016 10:29 AM CST PHQ-9 PHQ-9 Entered On: 12/27/2016 10:29 DIRECTOR EDUCATION Performed On: 12/27/2016 10:29 DIRECTOR EDUCATION by OLIVA WRIGHT [facility] PHQ-9 Little interest or pleasure in doing [...] with others : Somewhat difficult OLIVA WRIGHT [facility] - 12/27/2016 10:29 DIRECTOR EDUCATION [facility] Document Id: [id number] DIRECTOR EDUCATION!13 CTOR EDUCATION [employer] - Annemarie Montiel M.D. - 12/27/2016 10:22 AM CST Ambulatory Patient Summary [address] [id number] Visit Information Name: NANCY PHILLIPS [facility] Number: [id number] Current Date: 12/27/2016 10:22:24 Physicians [...] Oral, [facility] a [facility] (Effexor XR 75 mg oral capsule, extended release) 1 cap, Oral, once a day Routed to [facility] [address] [place] [...] Date Time Location Provider 01/11/2017 13:15 [facility] CHIEF LIFESTYLE OFFICER Cassie Booth MD Attention: Contact your local [...] if you dont have one. Go to [email or web address] and click on Create Your Account. Then, follow the directions to complete the online form. Youll be asked for your [facility] number which you can find at the top of this document. Your Goals/Additional instructions: Source: [facility] POWERCHART Document Id: [id number] CTOR EDUCATION Miscellaneous - Annemarie Montiel M.D. - 12/27/2016 10:22 AM CST Ambulatory Discharge Medication List [address] [id number] Visit Information Name: NANCY PHILLIPS [facility] Number: [id number] Current Date: 12/27/2016 10:22:23 Attending Provider: ANNEMARIE MONTIEL MD Primary Care [...] [facility] [address] [place] [address] Stop Taking the Following Medications: ibuprofen (ibuprofen [...] MD Signed On:27-DEC-2016 10:22:15 Additional Information: Source: [facility] POWERCHART Document Id: [id number] CTOR EDUCATION Miscellaneous - Oliva Wright, C.M.ARodrigo - 12/27/2016 9:37 AM CST 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 Entered On: 12/27/2016 9:39 DIRECTOR EDUCATION Performed On: 12/27/2016 9:37 DIRECTOR EDUCATION by OLIVA WRIGHT [facility] Intake Chief Complaint : med check Peripheral [...] Mass Index : 44.17 kg/m2 OLIVA WRIGHT [facility] - 12/27/2016 9:37 DIRECTOR EDUCATION General Info Information Given By : Patient Languages : Vietnamese Is Patient Female and 13-50 no hysterectomy : No OLIVA WRIGHT [facility] - 12/27/2016 9:37 DIRECTOR EDUCATION Subjective Pain Symptoms : No OLIVA WRIGHT [facility] - 12/27/2016 9:37 DIRECTOR EDUCATION Dependent Habits Exposure to Tobacco Smoke : Other: never Smoking Status : Never smoker Tobacco 2A : No Tobacco Use/Currently Using : No Tobacco Use/Last 30 Days : No Tobacco Use/Last 12 months : No Alcohol Use : No OLIVA WRIGHT [facility] 12/27/2016 9:37 DIRECTOR EDUCATION Caffeine Use Grid Caffeine Use : Current Type : Soft drinks Frequency : Daily Amount : regular 1-2 cans daily OLIVA WRIGHT [facility] 12/27/2016 9:37 DIRECTOR EDUCATION Source: [facility] [employer] Document Id: [id number] DIRECTOR EDUCATION!37 CTOR EDUCATION Miscellaneous - Oliva Wright C.M.ARodrigo - 12/27/2016 9:34 AM CST Health Assessment Health Assessment Entered On: 12/27/2016 9:35 DIRECTOR EDUCATION Performed On: 12/27/2016 9:34 DIRECTOR EDUCATION by OLIVA WRIGHT [facility] Health Assessment Complete Health Assessment Complete or Modified : Annual Health Assessment Annual Health Assessment Completed : Yes OLIVA WRIGHT [facility] 12/27/2016 9:34 DIRECTOR EDUCATION Nutrition Nutrition Risk Factors by History Adult : None OLIVA WRIGHT [facility] 12/27/2016 9:34 DIRECTOR EDUCATION Functional Current Daily Living Assistance : OLIVA Lopez [facility] 12/27/2016 9:34 DIRECTOR EDUCATION Dependent Habits Exposure to Tobacco Smoke : Other: never Smoking Status : Never smoker Tobacco 2A : No Tobacco Use/Currently Using : No Tobacco Use/Last 30 Days : No Tobacco Use/Last 12 months : No Alcohol Use : No OLIVA WRIGHT [facility] 12/27/2016 9:34 DIRECTOR EDUCATION Caffeine Use Grid Caffeine Use : Current Type : Soft drinks Frequency : Daily Amount : regular 1-2 cans daily OLIVA WRIGHT [facility] 12/27/2016 9:34 DIRECTOR EDUCATION Psychosocial Domestic Abuse Concerns : None Behavioral Health Screen/Safety Assmt : No Worship Preference : OLIVA Taylor [facility] 12/27/2016 9:34 DIRECTOR EDUCATION Advance Directive Advanced Directives : No Advance Directive Additional Information : No OLIVA WRIGHT [facility] 12/27/2016 9:34 DIRECTOR EDUCATION Educ Needs Learning Style Preference Adult Grid Patient : Verbal explanation, Printed materials Family : OLIVA Lopez CMA - 12/27/2016 9:34 DIRECTOR EDUCATION Source: [facility] POWERCHART Document Id: [id number] DIRECTOR EDUCATION!33 CTOR EDUCATION documented in this encounter Plan of Treatment Upcoming Encounters Date Type Specialty Care Team Description 08/17/2022 Procedure visit Neurology Marina Winter M.D., M.P.H. [address] [phone] (Wo rk) Scheduled Procedures Name Priority Associated Diagnoses Date/Time LIFT THIGH Excessive And Redundant Skin And Subcutaneous Tissue documented as of this encounter Visit Diagnoses Not on filedocumented in this encounter Additional Health Concerns Assessment Noted Time PHQ-9 Depression Total Score: 9 12/27/2016 10:29 AM CS T documented as of this encounter
--- OUTSIDE RECORDS SUMMARY | 2022-07-25 09:14 | XMS_ITS | Encounter Summary ---
:1985 Author Organization [facility] Address [address] [place] [address] Care Team Providers Name Role Phone Unavailable Primary Care Provider Unavailable Encounter Details Date Type Department Care Team Description 10/13/2016 Hospital Encounter HX [facility] Ranjit Lee M.D. [address], [place] [phone] (Wo rk) Social History [...] How often do you attend cheondoism or rastafari Never 07/04/2019 services? 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 10:53 AM ORGAN GRINDER documented as of this encounter Last Filed Vital Signs Vital Sign Reading Time Taken Comments Blood Pressure 118/64 10/13/2016 10:15 AM ORGAN GRINDER Pulse - - Temperature - - Respiratory Rate - - Oxygen Saturation - - Inhaled Oxygen Concentration - - Weight 127 kg (280 lb 10.3 oz) 10/13/2016 10:15 AM ORGAN GRINDER Height 164 cm (5' 4.57) 10/13/2016 10:15 AM ORGAN GRINDER Body Mass Index 47.33 10/13/2016 10:15 AM ORGAN GRINDER documented in this encounter H&P Notes Cassie Melissa M.D. - 10/13/2016 9:47 AM CST [id number] CHIEF COMPLAINT/REASON FOR VISIT Transfer of care [...] procedure history updated in the EMR today. WOOD ROOM HAND HISTORY 5, para 3-0-1-3 female status post [...] of the baby and she is a rdyt-kx-mxxm mom. FAMILY HISTORY Please see the family [...] lesions. NEUROLOGIC: Alert and oriented x3. IMPRESSION/REPORT/PLAN Emzkqw-olcp-xcr 5, para 3-0-1-3 female at 31+3 weeks [...] Upon my review of the visits in [place], her fundal height was measuring appropriate for [...] MELISSA MD On: 11/02/2016 03:06 PM Source: [facility] MHSDOLKARIEYNSHERINESYS Document Id: [id number] N GRINDER documented in this encounter Procedure Notes Tonya العلي L.P.N. - 10/13/2016 12:46 PM CST Urine Dipstick Urine Dipstick Entered On: 10/13/2016 12:47 ORGAN GRINDER Performed On: 10/13/2016 12:46 ORGAN GRINDER by TONYA العلي LPN Urine Dipstick UA [...] Negative TONYA العلي LPN - 10/13/2016 12:46 ORGAN GRINDER Source: [employer] Document Id: [id number] ORGAN GRINDER!14 N GRINDER Tonya العلي L.P.N. - 10/13/2016 11:06 AM CST Urine Dipstick Urine Dipstick Entered On: 10/13/2016 11:06 ORGAN GRINDER Performed On: 10/13/2016 11:06 ORGAN GRINDER by TONYA العلي LPN Urine Dipstick UA Color POC : Yellow UA Appear POC : Clear UA Protein POC : Trace UA Glucose POC : Negative TONYA العلي LPN - 10/13/2016 11:06 ORGAN GRINDER [facility] [employer] Document Id: [id number] ORGAN GRINDER!6 N GRINDER documented in this encounter Nursing Notes Tonya العلي L.P.N. - 10/13/2016 10:18 AM CST [place] At this time, there are 3 screening questions: 1. Have you or your partner traveled outside of [place] up to 6 months prior to this ? No 2. If so, where specifically have you or your partner traveled? Country, state? NA 3. If you or your partner have traveled to [place] since April 19, 2016; where in [place] did you travel? No Electronically Signed By: TONYA العلي LPN On: 10/13/2016 10:19 AM Source: [facility] POWERCHART Document Id: [id number] N GRINDER documented in this encounter Miscellaneous Notes Miscellaneous - Cassie Melissa M.D. - 10/30/2016 11:41 AM CST Ambulatory Discharge Medication List [address] [id number] Visit Information Name: NANCY PHILLIPS [facility] Number: [id number] Current Date: 10/30/2016 11:41:49 Attending [...] MD Signed On:30-OCT-2016 11:41:47 Additional Information: Source: [facility] POWERCHART Document Id: [id number] N GRINDER Miscellaneous - Cassie Melissa M.D. - 10/30/2016 11:41 AM CST Ambulatory Patient Summary [address] [id number] Visit Information Name: NANCY PHILLIPS [facility] Number: [id number] Current Date: 10/30/2016 11:41:50 Physicians [...] Date Time Location Provider 11/10/2016 11:30 [facility] WOOD ROOM HAND Cassie Melissa MD 11/17/2016 14:30 [facility] WOOD ROOM HAND Cassie Melissa MD 11/24/2016 14:30 [facility] WOOD ROOM HAND Cassie Melissa MD Attention: Contact your local [...] you dont have one. Go to [email or web address] and click on Create Your Account. Then, follow the directions to complete the online form. Youll be asked for your [facility] number which you can find at the top of this document. Your Goals/Additional instructions: Source: [facility] [employer] Document Id: [id number] N GRINDER Miscellaneous - Cassie Melissa M.D. - 10/16/2016 2:35 PM CST Results Notification Document Contains Addenda Addendum by TONYA العلي LPN on October 17, 2016 09:11:15 ORGAN GRINDER Added to chart, patient has been notified. From: CASSIE MELISSA MD To: RADHA HAMMOND RN; Sent: 10/16/2016 14:35:47 ORGAN GRINDER ! Show up: 10/16/2016 14:35:47 ORGAN GRINDER Subject: Results Notification Actions: Note to Nurse Reminder Comments: Please add result to chart. Please let patient know that the urine culture did not show a UTI. Results: Date Result Type Ind Result Name MBO Review Culture Urine Source: [facility] InDMusicCHART Document Id: [id number] Cassie Salguero M.D. - 10/13/2016 5:57 PM CST Results Notification Document Contains Addenda Addendum by TONYA العلي LPN on October 17, 2016 09:08:05 ORGAN GRINDER added to chart. From: CASSIE MELISSA MD To: RADHA HAMMOND RN; Sent: 10/13/2016 17:57:41 ORGAN GRINDER ! Show up: 10/13/2016 17:57:41 ORGAN GRINDER Subject: Results Notification Actions: Note to Nurse [...] ALT 7 unit/L (7 - 45) Source: [facility] POWERCHART Document Id: [id number] Electronically signed by Conversion, [facility] Casting Machine Service Operator [id number] at 04/01/2017 7:16 AM CDT Cassie Salguero M.D. - 10/13/2016 3:45 PM CST Results Notification Document Contains Addenda Addendum by TONYA العلي LPN on October 17, 2016 09:07:22 ORGAN GRINDER added to chart. From: CASSIE MELISSA MD To: RADHA HAMMOND RN; Sent: 10/13/2016 15:45:37 ORGAN GRINDER ! Show up: 10/13/2016 15:45:37 ORGAN GRINDER Subject: Results Notification Actions: Note to Nurse [...] Platelet 250 x10(9)/L (150 - 450) Source: [facility] POWERCHART Document Id: [id number] Electronically signed by Conversion, [facility] Casting Machine Service Operator [id number] at 04/01/2017 7:16 AM CDT Miscellaneous - Tonya العلي L.PRodrigoN. - 10/13/2016 3:43 PM CST FB surgery prior auth Document Contains Addenda Addendum by MARK LEONARDO on November 16, 2016 15:45:13 ORGAN GRINDER From: MARK LEONARDO ([facility] Director/Prior Authorizations) To: Obstetrics/Gynecology Nurse; Sent: 11/16/2016 15:45:13 ORGAN GRINDER Subject: RE: FB surgery prior auth No auth needed. From: TONYA العلي LPN ( Obstetrics/Gynecology Nurse) To: [facility] Director/Prior Authorizations; Sent: 10/13/2016 15:43:03 ORGAN GRINDER Subject: FB surgery prior auth [facility] Surgery Clinic Checklist Patient Contact Number: [phone] Surgeon: Dr. Melissa Surgical Service: (_) Orthopedics (_) General surgery (_) Ophthalmology (_) Podiatry (_) ENT (_) Urology (X) OB / Gynecology (_) Other Date of Surgery: 12/05/2016 Place of Surgery: [place] Pre-Admit FIN: Procedure (as written on Consent): Section with Tubal Ligation Right, Left, Bilateral, N/A: Bilateral Diagnosis (reason for surgery): , not first with previous section ICD-10: Z34.90 CPT:27918 Work Comp: (X) No (_) Yes Surgeon [...] Appt Needed: (_) No (_) Yes Source: [facility] POWERCHART Document Id: [id number] Electronically signed by Maria R [facility] Casting Machine Service Operator [id number] at 04/01/2017 7:16 AM CDT Miscellaneous - Tonya العلي L.P.N. - 10/13/2016 12:47 PM CST *General Message Document Contains Addenda Addendum by TONYA العلي LPN on October 13, 2016 15:52:35 ORGAN GRINDER Patient notified. Addendum by CASSIE MELISSA MD on October 13, 2016 14:42:22 ORGAN GRINDER From: CASSIE MELISSA MD To: Obstetrics/Gynecology Nurse; Sent: 10/13/2016 14:42:22 ORGAN GRINDER Subject: RE: *General Message Please let her know that her Urine test that we did today does not look like she has an infection, but we will send a culture to check and see for sure. From: TONYA العلي LPN ( Obstetrics/Gynecology Nurse) To: CASSIE MELISSA MD; Sent: 10/13/2016 12:47:51 ORGAN GRINDER Subject: *General Message Please see UA dipstick results and order UCX. Thanks! Source: [facility] POWERCHART Document Id: [id number] Electronically signed by Maria R [facility] Casting Machine Service Operator [id number] at 04/01/2017 7:16 AM CDT Miscellaneous - Tonya العلي L.P.NRodrigo - 10/13/2016 11:06 AM CST Laboratory Scientist Documentation Laboratory Scientist Documentation Entered On: 10/13/2016 11:06 ORGAN GRINDER Performed On: 10/13/2016 11:06 ORGAN GRINDER by TONYA العلي LPN Laboratory Scientist Documentation Exam/Procedure Performed : Cervical check CD Laboratory Scientist Present : Yes CD Laboratory Scientist Name : Susana العلي LPN Present in Room During Exam/Procedure : Friend TONYA العلي LPN - 10/13/2016 11:06 ORGAN GRINDER Source: [facility] [employer] Document Id: [id number] ORGAN GRINDER!6 N GRINDER Miscellaneous - Tonya العلي L.P.N. - 10/13/2016 10:15 AM CST Adult Speech Correction Assistant Intake/History Adult Speech Correction Assistant Intake/History Entered On: 10/13/2016 10:17 ORGAN GRINDER Performed On: 10/13/2016 10:15 ORGAN GRINDER by TONYA العلي LPN Intake Chief Complaint [...] kg/m2 TONYA العلي LPN - 10/13/2016 10:15 ORGAN GRINDER General Info Languages : Upper Sorbian Is Patient Female and 13-50 no hysterectomy : Yes Status : Confirmed positive Are you ? : No ELIANETONYA Marie PRADEEP - 10/13/2016 10:15 ORGAN GRINDER Subjective Pain Symptoms : No TONYA العلي PRADEEP - 10/13/2016 10:15 ORGAN GRINDER Dependent Habits Exposure to Tobacco Smoke : Other: never Smoking Status : Never smoker Tobacco 2A : No Tobacco Use/Currently Using : No Tobacco Use/Last 30 Days : No Tobacco Use/Last 12 months : No ELIANETONYA PRADEEP - 10/13/2016 10:15 ORGAN GRINDER Caffeine Use Grid Caffeine Use : Current Type : Soft drinks Frequency : Daily Amount : regular 1-2 cans daily ELIANETONYA Nadia FERNÁNDEZ - 10/13/2016 10:15 ORGAN GRINDER Source: [employer] Document Id: [id number] ORGAN GRINDER!35 N GRINDER documented in this encounter Plan of Treatment Upcoming Encounters Date Type Specialty Care Team Description 08/17/2022 Procedure visit Neurology Marina Winter M.D., M.P.H. [address] [place] [phone] (Wo rk) Scheduled Procedures Name Priority Associated Diagnoses Date/Time LIFT THIGH Excessive And Redundant Skin And Subcutaneous Tissue documented as of this encounter Procedures Procedure Name Priority Date/Time Associated Comments Diagnosis BACTERIAL CULTURE, Routine 10/13/2016 5:01 Result s for this AEROBIC, URINE PM ORGAN GRINDER procedure are in the results section. DIPSTICK, POCT, U Routine 10/13/2016 12:46 Result s for this (NURSING) INTERFACED PM ORGAN GRINDER procedu re are in the results section. CBC WITHOUT Routine 10/13/2016 11:21 Results for this DIFFERENTIAL, B AM ORGAN GRINDER procedure ar e in the results section. BUN (BLOOD UREA Routine 10/13/2016 11:21 Results for this NITROGEN), S/P AM ORGAN GRINDER procedure are in the results section. ALANINE AMINOTRANSFERASE Routine 10/13/2016 11:21 Results for this (ALT), S/P AM ORGAN GRINDER procedure are i n the results section. ASPARTATE Routine 10/13/2016 11:21 Results for this AMINOTRANSFERASE (AST), AM ORGAN GRINDER proc edure are in S/P the results section. CREATININE WITH EGFR, Routine 10/13/2016 11:21 Re sults for this S/P AM ORGAN GRINDER procedure are i n the results section. DIPSTICK, POCT, U Routine 10/13/2016 11:06 Result s for this (NURSING) INTERFACED AM ORGAN GRINDER procedu re are in the results section. documented in this encounter Results Bacterial Culture, Aerobic, Urine (10/13/2016 5:01 PM ORGAN GRINDER) [facility] Method Time Signature Bacterial POWERCHART Culture, Aerobic, Urine HXFinnc Mixed carmelo. No POWERCHART further studies unless notified. [facility] POWERCHART Microbiology laboratory [phone]. Specimen (Source) Anatomical Collection Method Collection Time Re ceived Time Location / / Volume Laterality Urine, First 10/13/2016 5:01 PM Voided ORGAN GRINDER Cassie Melissa M.D. LAB MICROBIOLOGY - GENERAL O RDERABLES Performing Organization Address City/[facility] Code Phon e Number POWERCHART Dipstick, POCT, Urine (nursing) (10/13/2016 12:46 PM ORGAN GRINDER) [facility] Method Time Signature Color [place] POWERCHART Appearance Clear POWERCHART Leukocytes, Negative POWERCHART POCT, U Nitrites, Negative POWERCHART POCT, U Urobilinogen, 0.2 mg/dl POWERCHART POCT, Urine Protein, POCT, 1+ (30 POWERCHART U mg/dl) pH, POCT, 5.5 5.0 - 9.0 POWERCHART Urine Blood, POCT, U Negativ POWERCHART Specific 1.030 1.000 - POWERCHART [place], POCT, 1.030 U Ketone, POCT, Small (15 POWERCHART U mg/dl) Bilirubin, 1+ Small POWERCHART POCT, U Glucose, POCT, Negative POWERCHART U Specimen (Source) Anatomical Collection Method Collection Time Re ceived Time Location / / Volume Laterality 10/13/2016 12:46 PM ORGAN GRINDER Cassie Melissa M.D. LAB POCT ORDERABLES - DEVICE Performing Organization Address City/[facility]/ZIP Code Phon e Number POWERCHART (ABNORMAL) CBC without Differential (10/13/2016 11:21 AM ORGAN GRINDER) Analysis Performed At [facility] Time Signature Leukocytes 10.7 (H) 3.4 - 10.5 POWERCHART X109L Erythrocytes 4.34 3.90 - POWERCHART 5.03 [id number] Hemoglobin 12.7 12.0 - POWERCHART 15.5 GDL Hematocrit 37.3 34.9 - POWERCHART 44.5 MCV 85.9 82.0 - POWERCHART 98.0 FL HX RDW 14.2 11.9 - POWERCHART 15.5 Platelet Count 250 150 - 450 POWERCHART X109L Specimen (Source) Anatomical Collection Method Collection Time Re ceived Time Location / / Volume Laterality Blood 10/13/2016 11:21 AM ORGAN GRINDER Cassie Melissa M.D. LAB BLOOD ADD-ON Performing Organization Address City/State/ZIP Code Phon e Number POWERCHART (ABNORMAL) Creatinine with eGFR (10/13/2016 11:21 AM ORGAN GRINDER) Analysis Performed At [facility] Time Signature Creatinine 0.49 (L) 0.60 - POWERCHART 1.10 MGDL HXeGFR (MDRD) >60 >=60 POWERCHART [id number] eGFR >60 >=60 POWERCHART Black/ [id number] [place] Specimen (Source) Anatomical Collection Method Collection Time Re ceived Time Location / / Volume Laterality Blood 10/13/2016 11:21 AM ORGAN GRINDER Cassie Melissa M.D. LAB BLOOD ADD-ON Performing Organization Address City/State/ZIP Code Phon e Number POWERCHART BUN (Blood Urea Nitrogen) (10/13/2016 11:21 AM ORGAN GRINDER) P athologist Signature BUN (Blood Urea 6 6 - 21 MGDL POWERCHART Nitrogen), S Specimen (Source) Anatomical Collection Method Collection Time Re ceived Time Location / / Volume Laterality Blood 10/13/2016 11:21 AM ORGAN GRINDER Cassie Melissa M.D. LAB BLOOD ADD-ON Performing Organization Address City/State/ZIP Code Phon e Number POWERCHART ALT (Alanine Aminotransferase) (10/13/2016 11:21 AM ORGAN GRINDER) P athologist Signature Alanine 7 7 - 45 POWERCHART Amniotransferas UNITL e, LD Specimen (Source) Anatomical Collection Method Collection Time Re ceived Time Location / / Volume Laterality Blood 10/13/2016 11:21 AM ORGAN GRINDER Cassie Melissa M.D. LAB BLOOD ADD-ON Performing Organization Address City/State/ZIP Code Phon e Number POWERCHART AST (Aspartate Aminotransferase) (10/13/2016 11:21 AM ORGAN GRINDER) Patholo gist Method Time Signature Aspartate 14 8 - 43 POWERCHART Aminotransferase UNITL (AST), S Specimen (Source) Anatomical Collection Method Collection Time Re ceived Time Location / / Volume Laterality Blood 10/13/2016 11:21 AM ORGAN GRINDER Cassie Melissa M.D. LAB BLOOD ADD-ON Performing Organization Address City/[facility] Code Phon e Number POWERCHART Dipstick, POCT, Urine (nursing) (10/13/2016 11:06 AM ORGAN GRINDER) Analysis Performed At Patho logist Time Signature Color Yellow POWERCHART Appearance Clear POWERCHART Protein, POCT, Trace POWERCHART U Glucose, POCT, Negative POWERCHART U Specimen (Source) Anatomical Collection Method Collection Time Re ceived Time Location / / Volume Laterality 10/13/2016 11:06 AM ORGAN GRINDER Authorizing Provider Result Lupis Melissa M.D. LAB POCT ORDERABLES - DEVICE Performing Organization Address City/[facility] Code Phon e Number POWERCHART documented in this encounter Visit Diagnoses Not on filedocumented in this encounter Additional Health Concerns Assessment Noted Time PHQ-9 Depression Total Score: 13 06/14/2015 3:56 PM CD T documented as of this encounter
--- OUTSIDE RECORDS SUMMARY | 2022-07-25 09:14 | XMS_ITS | Encounter Summary ---
:1985 Author Organization [facility] Address [address] [place] [address] Care Team Providers Name Role Phone Unavailable Primary Care Provider Unavailable Encounter Details Date Type Department Care Team Description 11/24/2016 Hospital Encounter HX [facility] Ranjit Lee M.D. [address], [place] [phone] (Wo rk) Social History [...] often do you attend latter day or druze Never 07/04/2019 services? 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 - 11/24/2016 1:49 PM CST [id number] CHIEF COMPLAINT/REASON FOR VISIT OB followup. HISTORY [...] MELISSA MD On: 12/05/2016 08:48 PM Source: [facility] MHSDOLBEYNONRADSYS Document Id: [id number] NIC CARE NURSE documented in this encounter Procedure Notes Tonya العلي LRodrigoP.NRodrigo - 11/24/2016 3:20 PM CST Urine Dipstick Urine Dipstick Entered On: 11/24/2016 15:20 CHRONIC CARE NURSE Performed On: 11/24/2016 15:20 CHRONIC CARE NURSE by TONYA العلي LPN Urine Dipstick UA Color POC : Yellow UA Appear POC : Clear UA Protein POC : Trace UA Glucose POC : Negative TONYA العلي LPN - 11/24/2016 15:20 CHRONIC CARE NURSE Source: [facility] POWERCHART Document Id: [id number] CHRONIC CARE NURSE!6 NIC CARE NURSE Cassie Melissa M.D. - 11/24/2016 12:00 AM [...] MELISSA MD On: 12/05/2016 08:41 PM Source: [facility] MHSDOLBEYNONRADSYS Document Id: [id number] NIC CARE NURSE documented in this encounter Miscellaneous Notes Miscellaneous - Cassie Melissa M.D. - 11/24/2016 5:42 PM CST Ambulatory Patient Summary [address] [id number] Visit Information Name: ALAN, NANCY ELIZABETH [facility] Number: [id number] Current Date: 11/24/2016 17:42:16 Physicians [...] Date Time Location Provider 12/01/2016 13:00 FBCV SENIOR PENSIONS ADMINISTRATOR Cassie Melissa MD 12/27/2016 09:45 [facility], Nicki Zuniga Attention: Contact [...] if you dont have one. Go to [email or web address] and click on Create Your Account. Then, follow the directions to complete the online form. Youll be asked for your [facility] number which you can find at the top of this document. Your Goals/Additional instructions: Source: [facility] POWERCHART Document Id: [id number] NIC CARE NURSE Miscellaneous - Cassie Melissa M.D. - 11/24/2016 5:42 PM CST Ambulatory Discharge Medication List [address] [id number] Visit Information Name: NANCY PHILLIPS [facility] Number: [id number] Current Date: 11/24/2016 17:42:15 Attending [...] MD Signed On:24-NOV-2016 17:42:13 Additional Information: Source: [facility] POWERCHART Document Id: [id number] NIC CARE NURSE Telephone Encounter - Tonya العلي LRodrigoPRodrigoN. - 11/24/2016 4:58 PM CHRONIC CARE NURSE *Phone Message Document Contains Addenda Addendum by CASSIE MELISSA MD on November 24, 2016 17:25:41 CHRONIC CARE NURSE Noted From: TONYA العلي LPN ( Obstetrics/Gynecology Nurse) To: CASSIE MELISSA MD; Sent: 11/24/2016 16:58:46 CHRONIC CARE NURSE Subject: *Phone Message Caller is: ( X [...] back cell phone number ( ) Source: [facility] DotNetNukeCHART Document Id: [id number] Electronically signed by Maria R [facility] Founding Partner [id number] at 04/17/2017 3:49 AM CDT Miscellaneous - Tonya العلي L.P.N. - 11/24/2016 2:59 PM CST Health Care / Medical Job Titles Documentation Health Care / Medical Job Titles Documentation Entered On: 11/24/2016 15:00 CHRONIC CARE NURSE Performed On: 11/24/2016 14:59 CHRONIC CARE NURSE by TONYA العلي LPN Health Care / Medical Job Titles Documentation Exam/Procedure Performed : Cervical check CD Health Care / Medical Job Titles Present : Yes CD Health Care / Medical Job Titles Name : Susana العلي LPN Present in Room During Exam/Procedure : Other: Sister, nadeem TONYA العلي LPN - 11/24/2016 14:59 CHRONIC CARE NURSE Source: [facility] POWERCHART Document Id: [id number] CHRONIC CARE NURSE!6 NIC CARE NURSE Miscellaneous - Tonya العلي L.P.N. 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 : No TONYA العلي LPN - 11/24/2016 14:38 CHRONIC CARE NURSE Subjective Pain Symptoms : No TONYA العلي LPN - 11/24/2016 14:38 CHRONIC CARE NURSE Dependent Habits Exposure to Tobacco Smoke : Other: never Smoking Status : Never smoker Tobacco 2A : No Tobacco Use/Currently Using : No Tobacco Use/Last 30 Days : No Tobacco Use/Last 12 months : No TONYA العلي LPN - 11/24/2016 14:38 CHRONIC CARE NURSE Caffeine Use Grid Caffeine Use : Current Type : Soft drinks Frequency : Daily Amount : regular 1-2 cans daily TONYA العلي LPN - 11/24/2016 14:38 CHRONIC CARE NURSE Source: [facility] POWERCHART Document Id: [id number] CHRONIC CARE NURSE!35 NIC CARE NURSE Telephone Encounter - Conversion, Historical Provider Ser - 11/02/2016 9:23 AM CST *Phone Message Document Contains Addenda Addendum by TONYA العلي LPN on November 02, 2016 13:00:50 CHRONIC CARE NURSE Patient notified, she was added to the schedule. Addendum by CASSIE MELISSA MD on November 02, 2016 12:40:41 CHRONIC CARE NURSE From: CASSIE MELISSA MD To: FB Obstetrics/Gynecology Nurse; Sent: 11/02/2016 12:40:41 CHRONIC CARE NURSE Subject: RE: *Phone Message Please have her come here as soon as she is able and I will see her. Addendum by RADHA HAMMOND RN on November 02, 2016 11:28:25 CHRONIC CARE NURSE From: RADHA HAMMOND RN ( Obstetrics/Gynecology Nurse) To: CASSIE MELISSA MD; Sent: 11/02/2016 11:28:25 CHRONIC CARE NURSE Subject: FW: *Phone Message Spoke with Nancy. [...] know if she should go back to [facility], or if you would like to see her sooner. Denies any bleeding or leaking of fluids. Positive movement. States shehad a lot of mucousy discharge on Sunday but has had no other abnormal discharge since. From: RAZ WARREN ([facility] Supervisor [employer]) To: Obstetrics/Gynecology Nurse; Sent: 11/02/2016 09:23:04 CHRONIC CARE NURSE Subject: *Phone Message Caller is: ( x [...] next appt. Please call her back at [phone] Advice/Action: Source used: ( ) Verbalizes understanding [...] back cell phone number ( ) Source: [facility] POWERCHART Document Id: [id number] documented in this encounter Plan of Treatment Upcoming Encounters Date Type Specialty Care Team Description 08/17/2022 Procedure visit Neurology Marina Winter M.D., M.P.H. [address] [phone] (Wo rk) Scheduled Procedures Name Priority Associated Diagnoses Date/Time LIFT THIGH Excessive And Redundant Skin And Subcutaneous Tissue documented as of this encounter Procedures Procedure Name Priority Date/Time Associated Comments Diagnosis DIPSTICK, POCT, U Routine 11/24/2016 3:20 PM Resu lts for this (NURSING) INTERFACED CHRONIC CARE NURSE procedu re are in the results section. documented in this encounter Results Dipstick, POCT, Urine (nursing) (11/24/2016 3:20 PM CHRONIC CARE NURSE) Analysis Performed At [facility] Time Signature Color Yellow POWERCHART Appearance Clear POWERCHART Protein, POCT, Trace POWERCHART U Glucose, POCT, Negative POWERCHART U Specimen (Source) Anatomical Collection Method Collection Time Re ceived Time Location / / Volume Laterality 11/24/2016 3:20 PM CHRONIC CARE NURSE Cassie Melissa M.D. LAB POCT ORDERABLES - DEVICE Performing Organization Address City/State/ZIP Code Phon e Number POWERCHART documented in this encounter Visit Diagnoses Not on filedocumented in this encounter Additional Health Concerns Assessment Noted Time PHQ-9 Depression Total Score: 13 06/14/2015 3:56 PM CD T documented as of this encounter
--- OUTSIDE RECORDS SUMMARY | 2022-07-25 09:14 | XMS_ITS | Encounter Summary ---
:1985 Author Organization [facility] Address [address] [place] [address] Care Team Providers Name Role Phone Unavailable Primary Care Provider Unavailable Encounter Details Date Type Department Care Team Description 02/07/2017 Hospital Encounter HX [facility] Leonel Pandya P.ARodrigo -Nadya [address] [place] [phone] (Wo rk) Social History Tobacco [...] often do you attend latter day or temple Never 07/04/2019 services? 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 - 02/07/2017 9:43 AM CDT *General Message/Bp/Wt check for phentermine Document Contains Addenda Addendum by KAYLEN BENSON LPN on February 08, 2017 07:52:36 CDT faxed to tessa higginbotham Addendum by MAILE ZARATE MD on February 07, 2017 19:45:00 CDT From: MAILE ZARATE MD To: [facility] 2W Nurse; Sent: 02/07/2017 19:45:00 CDT Subject: RE: *General Message/Bp/Wt check for phentermine Addendum by MAILE ZARATE MD on February 07, 2017 19:44:55 CDT Approved with modifications: Order:phentermine (phentermine 37.5 mg oral tablet) 1 tab(s) PO Daily Qty: 42 tab(s) Refills: 0 Substitutions Allowed Print - [id number] (from [id number]) in session 157 Signed by MAILE ZARATE MD 02/07/2017 19:44:44 Addendum by LISA CASTRO CMA on February 07, 2017 09:52:21 CDT From: LISA CASTRO CMA ([facility] 2W Nurse) To: MAILE ZARATE MD; Sent: 02/07/2017 09:52:21 CDT Subject: RE: *General Message/Bp/Wt check for phentermine phertermine is pending signature, please advise From: SHIRA NICHOLAS CMA ([facility]Travel Nurse) To: [facility] 2W Nurse; Sent: 02/07/2017 09:43:34 CDT Subject: *General Message/Bp/Wt check for phentermine S Patient presents to [facility] for BP/WT check for refill on phentermine [...] or concerns. Thank You, [facility] Source: [facility] POWERCHART Document Id: [id number] Electronically signed by Conversion, [facility] Supervisor [employer] [id number] at 04/17/2017 7:29 AM CDT documented in this encounter Plan of Treatment Upcoming Encounters Date Type Specialty Care Team Description 08/17/2022 Procedure visit Neurology Marina Winter M.D., M.P.H. [address] [place] [phone] (Wo rk) Scheduled Procedures Name Priority Associated Diagnoses Date/Time LIFT THIGH Excessive And Redundant Skin And Subcutaneous Tissue documented as of this encounter Visit Diagnoses Not on filedocumented in this encounter Additional Health Concerns Assessment Noted Time PHQ-9 Depression Total Score: 9 12/27/2016 10:29 AM CS T documented as of this encounter
--- OUTSIDE RECORDS SUMMARY | 2022-07-25 09:14 | XMS_ITS | Encounter Summary ---
:1985 Author Organization [facility] Address [address] [place] [address] Care Team Providers Name Role Phone Unavailable Primary Care Provider Unavailable Encounter Details Date Type Department Care Team Description 11/13/2016 Hospital Encounter HX NO MAPPING Eva Booth M.D. [address] [place], [place] [phone] (Wo rk) Social History [...] How often do you attend druze or pentecostalism Never 07/04/2019 services? 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 [address] [place] [phone] (Wo rk) Scheduled Procedures Name Priority Associated Diagnoses Date/Time LIFT THIGH Excessive And Redundant Skin And Subcutaneous Tissue documented as of this encounter Visit Diagnoses Not on filedocumented in this encounter Additional Health Concerns Assessment Noted Time PHQ-9 Depression Total Score: 13 06/14/2015 3:56 PM CD T documented as of this encounter
--- OUTSIDE RECORDS SUMMARY | 2022-07-25 09:14 | XMS_ITS | Encounter Summary ---
:1985 Author Organization [facility] Address [address] [place] [address] Care Team Providers Name Role Phone Unavailable Primary Care Provider Unavailable Encounter Details Date Type Department Care Team Description 11/20/2016 Hospital Encounter HX [facility] Ranjit Lee M.D. [address], [place] [phone] (Wo rk) Social History [...] How often do you attend samaritan or mormonism Never 07/04/2019 services? 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 documented as of this encounter Last Filed Vital Signs Vital Sign Reading Time Taken Comments Blood Pressure 132/88 11/20/2016 10:05 AM CHEF & OWNER Pulse - - Temperature - - Respiratory Rate - - Oxygen Saturation - - Inhaled Oxygen Concentration - - Weight 126 kg (278 lb 7.1 oz) 11/20/2016 10:05 AM CHEF & OWNER Height 164 cm (5' 4.57) 11/20/2016 10:05 AM CHEF & OWNER Body Mass Index 46.96 11/20/2016 10:05 AM CHEF & OWNER documented in this encounter Progress Notes Cassie [...] MELISSA MD On: 12/05/2016 08:48 PM Source: [facility] MHSDOLBEYNONRADSYS Document Id: [id number] & OWNER documented in this encounter Procedure Notes Tonya العلي L.P.NRodrigo - 11/20/2016 10:38 AM CST Urine Dipstick Urine Dipstick Entered On: 11/20/2016 10:38 CHEF & OWNER Performed On: 11/20/2016 10:38 CHEF & OWNER by TONYA العلي LPN Urine Dipstick UA Color POC : Yellow UA Appear POC : Clear UA Protein POC : Trace UA Glucose POC : Negative TONYA العلي LPN - 11/20/2016 10:38 CHEF & OWNER Source: [facility] POWERCHART Document Id: [id number] CHEF & OWNER!6 & OWNER Cassie Melissa M.D. - 11/20/2016 12:00 AM [...] MELISSA MD On: 12/05/2016 08:41 PM Source: [facility] MHSDOLBEYNONRADSYS Document Id: [id number] & OWNER documented in this encounter Nursing Notes Tonya العلي LRodrigoP.N. - 11/20/2016 10:07 AM CST [place]ika At this time, there are 3 screening questions: 1. Have you or your partner traveled outside of [place] up to 6 months prior to this ? No- Denies 2. If so, where specifically have you or your partner traveled? Country, state? NA 3. If you or your partner have traveled to [place] since April 19, 2016; where in [place] did you travel? No- Denies Electronically Signed By: TONYA العلي LPN On: 11/20/2016 10:07 AM Source: [facility] POWERCHART Document Id: [id number] & OWNER documented in this encounter Miscellaneous Notes Miscellaneous - Cassie Melissa M.D. 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 Your Goals/Additional instructions: Source: [facility] POWERCHART Document Id: [id number] EL Hollis - Cassie Melissa M.D. - 11/24/2016 5:40 PM CST Ambulatory Discharge Medication List [address] [id number] Visit Information Name: NANCY PHILLIPS [facility] Number: [id number] Current Date: 11/24/2016 17:40:50 Attending Provider: CASSIE MELISSA MD Primary Care [...] MD Signed On:24-NOV-2016 17:40:47 Additional Information: Source: [facility] POWERCHART Document Id: [id number] EL Hollis - Cassie Melissa M.D. - 11/22/2016 5:15 PM CST Results Notification Document Contains Addenda Addendum by TONYA العلي LPN on November 27, 2016 10:46:35 CHEF & OWNER added to chart. From: CASSIE MELISSA MD To: TONYA العلي LPN; Sent: 11/22/2016 17:15:02 CHEF & OWNER ! Show up: 11/22/2016 17:15:02 CHEF & OWNER Subject: Results Notification Actions: Note to Nurse Reminder Comments: Please add result to chart. Results: Date Result Type Ind Result Name MBO Review Strep B by PCR Source: [facility] Document Id: [id number] Miscellaneous - Tonya العلي L.PRodrigoNRodrigo - 11/20/2016 10:34 AM CST Banquet Houseperson Documentation Banquet Houseperson Documentation Entered On: 11/20/2016 10:34 CHEF & OWNER Performed On: 11/20/2016 10:34 CHEF & OWNER by TONYA العلي LPN Banquet Houseperson Documentation Exam/Procedure Performed : Cervical check/ GBS culture CD Banquet Houseperson Present : Yes CD Banquet Houseperson Name : Susana PRADEEP العلي Present in Room During Exam/Procedure : Daughter TONYA العلي LPN - 11/20/2016 10:34 CHEF & OWNER Source: [facility] Document Id: [id number] CHEF & OWNER!6 & OWNER Miscellaneous - Tonya العلي L.P.NRodrigo - 11/20/2016 10:05 AM CST 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 : No TONYA العلي LPN - 11/20/2016 10:05 CHEF & OWNER Subjective Pain Symptoms : No TONYA العلي LPN - 11/20/2016 10:05 CHEF & OWNER Dependent Habits Exposure to Tobacco Smoke : Other: never Smoking Status : Never smoker Tobacco 2A : No Tobacco Use/Currently Using : No Tobacco Use/Last 30 Days : No Tobacco Use/Last 12 months : No TONYA العلي LPN - 11/20/2016 10:05 CHEF & OWNER Caffeine Use Grid Caffeine Use : Current Type : Soft drinks Frequency : Daily Amount : regular 1-2 cans daily TONYA العلي LPN - 11/20/2016 10:05 CHEF & OWNER [facility] POWERCHART Document Id: [id number] CHEF & OWNER!35 & OWNER documented in this encounter Plan of Treatment Upcoming Encounters Date Type Specialty Care Team Description 08/17/2022 Procedure visit Neurology Marina Winter M.D., M.P.H. [address] [phone] (Wo rk) Scheduled Procedures Name Priority Associated Diagnoses Date/Time LIFT THIGH Excessive And Redundant Skin And Subcutaneous Tissue documented as of this encounter Procedures Procedure Name Priority Date/Time Associated Comments Diagnosis HXSTREP GROUP B BY Routine 11/20/2016 12:52 PM Re sults for this PCR CHEF & OWNER procedure are i n the results section. DIPSTICK, POCT, U Routine 11/20/2016 10:38 AM Res ults for this (NURSING) INTERFACED CHEF & OWNER procedu re are in the results section. documented in this encounter Results HXSTREP GROUP B BY PCR (11/20/2016 12:52 PM CHEF & OWNER) Patholo gist Method Time Signature HXStrep Group POWERCHART B by PCR HXFinal Negative for POWERCHART Group B Strep by PCR. Specimen (Source) Anatomical Collection Method Collection Time Re ceived Time Location / / Volume Laterality Vaginal/Rectum 11/20/2016 12:52 PM CHEF & OWNER Cassie Melissa M.D. LAB HISTORICAL ORDERS Performing Organization Address [facility] Phon e Number POWERCHART Dipstick, POCT, Urine (nursing) (11/20/2016 10:38 AM CHEF & OWNER) Analysis Performed At [facility] Time Signature Color Yellow POWERCHART Appearance Clear POWERCHART Protein, POCT, Trace POWERCHART U Glucose, POCT, Negative POWERCHART U Specimen (Source) Anatomical Collection Method Collection Time Re ceived Time Location / / Volume Laterality 11/20/2016 10:38 AM CHEF & OWNER Cassie Melissa M.D. LAB POCT ORDERABLES - DEVICE Performing Organization Address [facility] Phon e Number POWERCHART documented in this encounter Visit Diagnoses Not on filedocumented in this encounter Additional Health Concerns Assessment Noted Time PHQ-9 Depression Total Score: 13 06/14/2015 3:56 PM CD T documented as of this encounter
--- OUTSIDE RECORDS SUMMARY | 2022-07-25 09:14 | XMS_ITS | Encounter Summary ---
:1985 Author Organization [facility] Address [address] [place] [address] Care Team Providers Name Role Phone Unavailable [...] How often do you attend anglican or mormonism Never 07/04/2019 services? 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 - 11/17/2016 1:59 PM CST [id number] CHIEF COMPLAINT/REASON FOR VISIT OB. HISTORY OF [...] to discuss this further with her primary flight steward. I discussed with patient theneed to admit [...] as needed. 13. I spent 30 minutes mdmd-vt-odxt time with the patient with 22 minutes spent in counseling and coordinating care. Kit Hathaway M.D./pepe Electronically Signed By: KIT HATHAWAY MD On: 11/20/2016 08:12 AM Source: [facility] MHSDOLBEYNONRADSYS Document Id: [id number] ING CONTRACTOR documented in this encounter Procedure Notes Alexandra العلي L.P.NRodrigo - 11/17/2016 2:41 PM CST Urine Dipstick Urine Dipstick Entered On: 11/17/2016 14:49 HAULING CONTRACTOR Performed On: 11/17/2016 14:41 HAULING CONTRACTOR by ALEXANDRA العلي LPN Urine Dipstick UA Color POC : Yellow UA Appear POC : Clear UA Protein POC : Trace UA Glucose POC : 100 mg/dl ALEXANDRA العلي LPN - 11/17/2016 14:41 HAULING CONTRACTOR Source: [facility] POWERCHART Document Id: [id number] HAULING CONTRACTOR!6 ING CONTRACTOR documented in this encounter Miscellaneous Notes Miscellaneous - Kit Hathaway M.D. - 11/17/2016 3:37 PM CST Ambulatory Patient Summary [address] [id number] Visit Information Name: NANCY PHILLIPS [facility] Number: [id number] Current Date: 11/17/2016 15:37:48 Physicians [...] Date Time Location Provider 11/20/2016 10:15 [facility]BANA STATION REPAIRER Cassie Booth MD 11/24/2016 14:30 FBANA STATION REPAIRER Cassie Booth MD 12/27/2016 09:45 [facility] Nicki Montiel MD Attention: Contact your [...] if you dont have one. Go to [email or web address] and click on Create Your Account. Then, follow the directions to complete the online form. Youll be asked for your [facility] number which you can find at the top of this document. Your Goals/Additional instructions: Source: [facility] POWERCHART Document Id: [id number] ING CONTRACTOR Miscellaneous - Kit Hathaway M.D. - 11/17/2016 3:37 PM CST Ambulatory Discharge Medication List [facility] [address] [place] [id number] Visit Information Name: NANCY PHILLIPS [facility] Number: [id number] Current Date: 11/17/2016 15:37:47 Attending [...] MD Signed On:17-NOV-2016 15:37:42 Additional Information: Source: [facility] Recurrent EnergyCHART Document Id: [id number] ING CONTRACTOR Miscellaneous - Alexandra العلي LRodrigoP.N. - 11/17/2016 2:35 PM CST Signal And Communications Maintainer Documentation Signal And Communications Maintainer Documentation Entered On: 11/17/2016 14:36 HAULING CONTRACTOR Performed On: 11/17/2016 14:35 HAULING CONTRACTOR by ALEXANDRA العلي LPN Signal And Communications Maintainer Documentation Exam/Procedure Performed : Cervical check CD Signal And Communications Maintainer Present : Yes CD Signal And Communications Maintainer Name : Susana العلي LPN Present in Room During Exam/Procedure : Other: Cousin ALEXANDRA العلي LPN - 11/17/2016 14:35 HAULING CONTRACTOR Source: [facility] Recurrent EnergyCHART Document Id: [id number] HAULING CONTRACTOR!6 ING CONTRACTOR Miscellaneous - Alexandra العلي L.P.N. - 11/17/2016 2:08 PM CST Adult Product Support Rep Intake/History Adult Product Support Rep Intake/History Entered On: 11/17/2016 14:10 HAULING CONTRACTOR Performed On: 11/17/2016 14:08 HAULING CONTRACTOR by ALEXANDRA العلي LPN Intake Chief Complaint [...] ELIANE ALEXANDRAJENNYFER Zuniga LPN - 11/17/2016 14:08 HAULING CONTRACTOR General Info Languages : Barbadian Is Patient Female and 13-50 no hysterectomy : Yes Status : Confirmed positive Are you ? : No ALEXANDRA العلي LPN - 11/17/2016 14:08 HAULING CONTRACTOR Subjective Pain Symptoms : No ALEXANDRA العلي LPN - 11/17/2016 14:08 HAULING CONTRACTOR Dependent Habits Exposure to Tobacco Smoke : Other: never Smoking Status : Never smoker Tobacco 2A : No Tobacco Use/Currently Using : No Tobacco Use/Last 30 Days : No Tobacco Use/Last 12 months : No ALEXANDRA العلي LPN - 11/17/2016 14:08 HAULING CONTRACTOR Caffeine Use Grid Caffeine Use : Current Type : Soft drinks Frequency : Daily Amount : regular 1-2 cans daily ALEXANDRA العلي LPN - 11/17/2016 14:08 HAULING CONTRACTOR [facility] POWERCHART Document Id: [id number] HAULING CONTRACTOR!35 ING CONTRACTOR documented in this encounter Plan of Treatment Upcoming Encounters Date Type Specialty Care Team Description 08/17/2022 Procedure visit Neurology Marina Winter M.D., M.P.H. [address] [phone] (Wo rk) Scheduled Procedures Name Priority Associated Diagnoses Date/Time LIFT THIGH Excessive And Redundant Skin And Subcutaneous Tissue documented as of this encounter Procedures Procedure Name Priority Date/Time Associated Comments Diagnosis DIPSTICK, POCT, U Routine 11/17/2016 2:41 PM Resu lts for this (NURSING) INTERFACED HAULING CONTRACTOR procedu re are in the results section. documented in this encounter Results Dipstick, POCT, Urine (nursing) (11/17/2016 2:41 PM HAULING CONTRACTOR) [facility] gist Method Time Signature Color Yellow POWERCHART Appearance Clear POWERCHART Protein, POCT, Trace POWERCHART U Glucose, POCT, 100 mg/dl POWERCHART U Specimen (Source) Anatomical Collection Method Collection Time Re ceived Time Location / / Volume Laterality 11/17/2016 2:41 PM HAULING CONTRACTOR Kit Hathaway M.D. LAB POCT ORDERABLES - DEVICE Performing Organization Address City/State/ZIP Code Phon e Number POWERCHART documented in this encounter Visit Diagnoses Not on filedocumented in this encounter Additional Health Concerns Assessment Noted Time PHQ-9 Depression Total Score: 13 06/14/2015 3:56 PM CD T documented as of this encounter
--- OUTSIDE RECORDS SUMMARY | 2022-07-25 09:14 | XMS_ITS | Encounter Summary ---
:1985 Author Organization [facility] Address [address] [place] [address] Care Team Providers Name Role Phone Unavailable Primary Care Provider Unavailable Encounter Details Date Type Department Care Team Description 01/24/2017 Hospital Encounter [facility]X [facility] Cassie Su M.D. [address] [place] [phone] (Wo rk) Social History Tobacco [...] How often do you attend amish or lutheran Never 07/04/2019 services? 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 This medication has been faxed to [facility] and will send a communication to [facility] to disregard the prescription to them. Modified [...] Complaint: Pt advised that she already contact [facility], and they are going to reroute her Phentermine to them from [facility]. _ Patient/Caller response to Education/Information given: ( [...] language for Healthcare discussion: _ Was an senior python developer used for this call? _ Other ( --_ ) From: BRENT AGUILAR To: JACEY KUMARcontainer coordinator [facility]; Sent: 02/12/2017 10:53:24 CDT Subject: *Phone Message- [...] pharmacy A: R: Please call pt at [phone] Advice/Action: Source used: ( ) Verbalizes understanding [...] back cell phone number ( ) Source: [facility] Recochem Document Id: [id number] documented in this encounter Plan of Treatment Upcoming Encounters Date Type Specialty Care Team Description 08/17/2022 Procedure visit Neurology Marina Winter M.D., M.P.H. [address] [phone] (Wo rk) Scheduled Procedures Name Priority [...] BIRADS Narrative 01/24/2017 2:48 PM CDT EXAM: [place] Digital Diag Bilat Mammo w/ Manjeet o., [...] / Josh Elias M.D. - 04/23/2017 EXAM: [place] Digital Diag Bilat Mammo w/ Manjeet o., [...]
--- OUTSIDE RECORDS SUMMARY | 2022-07-25 09:14 | XMS_ITS | Encounter Summary ---
:1985 Author Organization [facility] Address [address] [place] [address] Care Team Providers Name Role Phone Unavailable Primary Care Provider Unavailable Encounter Details Date Type Department Care Team Description 11/02/2016 Hospital Encounter [facility]X [facility] Ranjit Lee M.D. [address], [place] [phone] (Wo rk) Social [...] How often do you attend jewish or samaritan Never 07/04/2019 services? 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 - 11/02/2016 2:09 PM CST [id number] CHIEF COMPLAINT/REASON FOR VISIT Acute OB visit [...] Delivery for this. Per the notes from [facility], she had contractions every 3 to 5 [...] MELISSA MD On: 11/06/2016 01:18 PM Source: [facility] MHSDOLBEYNONRADSYS Document Id: [id number] OGY INSTRUCTOR documented in this encounter Procedure Notes Kristi [...] MELISSA MD On: 11/06/2016 01:17 PM Source: [facility] MHSDOLKARIEYNYUMIKO Document Id: [id number] OGY INSTRUCTOR documented in this encounter Miscellaneous Notes Miscellaneous - Kristi Melissa M.D. - 11/02/2016 4:21 PM CST Ambulatory Patient Summary [address] [id number] Visit Information Name: NANCY PHILLPIS [facility] Number: [id number] Current Date: 11/02/2016 16:21:01 Physicians [...] Date Time Location Provider 11/10/2016 11:30 MERE EVALUATION SPECIALIST Kristi Melissa MD 11/17/2016 14:30 MERE EVALUATION SPECIALIST Kristi Melissa MD 11/24/2016 14:30 MERE EVALUATION SPECIALIST Kristi Melissa MD Attention: Contact your local [...] if you dont have one. Go to [email or web address] and click on Create Your Account. Then, follow the directions to complete the online form. Youll be asked for your [facility] number which you can find at the top of this document. Your Goals/Additional instructions: Source: [facility] POWERCHART Document Id: [id number] OGY INSTRUCTOR Miscellaneous - Kristi Melissa M.D. - 11/02/2016 4:21 PM CST Ambulatory Discharge Medication List [address] [id number] Visit Information Name: NANCY PHILLIPS [facility] Number: [id number] Current Date: 11/02/2016 16:21:00 Attending [...] MD Signed On:02-NOV-2016 16:20:58 Additional Information: Source: [facility] POWERCHART Document Id: [id number] OGY INSTRUCTOR Miscellaneous - Alexandra العلي L.P.N. - 11/02/2016 2:17 PM CST Adult Liaison Planner Intake/History Adult Liaison Planner Intake/History Entered On: 11/02/2016 14:18 BIOLOGY INSTRUCTOR Performed On: 11/02/2016 14:17 BIOLOGY INSTRUCTOR by ALEXANDRA العلي LPN Intake Chief Complaint [...] kg/m2 ALEXANDRA العلي LPN - 11/02/2016 14:17 BIOLOGY INSTRUCTOR General Info Languages : Spanish Is Patient Female and 13-50 no hysterectomy : Yes Status : Confirmed positive Are you ? : No ALEXANDRA العلي LPN - 11/02/2016 14:17 BIOLOGY INSTRUCTOR Subjective Pain Symptoms : No ALEXANDRA العلي LPN - 11/02/2016 14:17 BIOLOGY INSTRUCTOR Dependent Habits Exposure to Tobacco Smoke : Other: never Smoking Status : Never smoker Tobacco 2A : No Tobacco Use/Currently Using : No Tobacco Use/Last 30 Days : No Tobacco Use/Last 12 months : No ALEXANDRA العلي LPN - 11/02/2016 14:17 BIOLOGY INSTRUCTOR Caffeine Use Grid Caffeine Use : Current Type : Soft drinks Frequency : Daily Amount : regular 1-2 cans daily ALEXANDRA العلي LPN - 11/02/2016 14:17 BIOLOGY INSTRUCTOR Source: [facility] POWERCHART Document Id: [id number] BIOLOGY INSTRUCTOR!35 OGY INSTRUCTOR documented in this encounter Plan of Treatment Upcoming Encounters Date Type Specialty Care Team Description 08/17/2022 Procedure visit Neurology Marina Winter M.D., M.P.H. [address] [phone] (Wo rk) Scheduled Procedures Name Priority Associated Diagnoses Date/Time LIFT THIGH Excessive And Redundant Skin And Subcutaneous Tissue documented as of this encounter Visit Diagnoses Not on filedocumented in this encounter Additional Health Concerns Assessment Noted Time PHQ-9 Depression Total Score: 13 06/14/2015 3:56 PM CD T documented as of this encounter
--- OUTSIDE RECORDS SUMMARY | 2022-07-25 09:14 | XMS_ITS | Encounter Summary ---
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 [address] [phone] (Wo rk) Scheduled Procedures Name Priority Associated Diagnoses Date/Time LIFT THIGH Excessive And Redundant Skin And Subcutaneous Tissue documented as of this encounter Visit Diagnoses Not on filedocumented in this encounter Additional Health Concerns Assessment Noted Time PHQ-9 Depression Total Score: 13 06/14/2015 3:56 PM CD T documented as of this encounter
--- OUTSIDE RECORDS SUMMARY | 2022-07-25 09:14 | XMS_ITS | Encounter Summary ---
:1985 Author Organization [facility] Address [address] [place] [address] Care Team Providers Name Role Phone Unavailable [...] How often do you attend sabianism or mandaeism Never 07/04/2019 services? 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 [address] [phone] (Wo rk) Scheduled Procedures Name Priority Associated Diagnoses Date/Time LIFT THIGH Excessive And Redundant Skin And Subcutaneous Tissue documented as of this encounter Visit Diagnoses Not on filedocumented in this encounter Additional Health Concerns Assessment Noted Time PHQ-9 Depression Total Score: 13 06/14/2015 3:56 PM CD T documented as of this encounter
--- OUTSIDE RECORDS SUMMARY | 2022-07-25 09:14 | XMS_ITS | Encounter Summary ---
:1985 Author Organization [facility] Address [address] [place] [address] Care Team Providers Name Role Phone Unavailable Primary Care Provider Unavailable Encounter Details Date Type Department Care Team Description 02/15/2017 Hospital Encounter [facility]X [facility] Meche Montiel M.D. [address] [place] [phone] (Wo rk) Social History Tobacco [...] How often do you attend scientology or adventist Never 07/04/2019 services? 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 - 02/15/2017 12:00 AM CDT [id number] Nancy presented for an appointment today with [...] behalf by Reggie Cohen, a trained medical health researcher. The creation of this record is basedon the scribe's personal observations and the provider's statements to them. This document has been c hecked and approved by the attending provider. Annemarie Montiel M.D./lesley Electronically Signed By: ANNEMARIE MONTIEL MD On: 03/04/2017 02:24 PM Source: [facility] MHSDOLBEYNONRADSYS Document Id: [id number] documented in this encounter Miscellaneous Notes Miscellaneous - Annemarie Montiel M.D. - 02/15/2017 1:51 PM CDT Ambulatory Patient Summary [facility] [address] [place] [place] [id number] Visit Information Name: NANCY PHILLIPS [facility] Number: [id number] Current Date: 02/15/2017 13:51:17 [...] Appointments Date Time Location Provider 03/27/2017 11:30 [facility] Nicki Montiel MD Attention: Contact your [...] [facility] POWERCHART Document Id: [id number] Miscellaneous - Annemarie Montiel M.D. - 02/15/2017 1:51 PM CDT Ambulatory Discharge Medication List [address] [id number] Visit Information Name: NANCY PHILLIPS [facility] Number: [id number] Current Date: 02/15/2017 13:51:17 [...] MD Signed On:15-FEB-2017 13:51:15 Additional Information: Source: [facility] POWERCHART Document Id: [id number] Miscellaneous - Lilibeth Benson, L.P.N. - 02/15/2017 12:24 PM CDT Adult Construction Equipment Operator Intake/History Adult Construction Equipment Operator Intake/History Entered On: 02/15/2017 12:28 CDT Performed [...] Communication Mode : Verbal Languages : Uzbek Is Patient Female and 13-50 no hysterectomy [...] LILIBETH BENSON LPN 02/15/2017 12:24 CDT Source: [employer] Document Id: [id number] CDT!35 documented in this encounter Plan of Treatment Upcoming Encounters Date Type Specialty Care Team Description 08/17/2022 Procedure visit Neurology Marina Winter M.D., M.P.H. [address] [phone] (Wo rk) Scheduled Procedures Name Priority Associated Diagnoses Date/Time LIFT THIGH Excessive And Redundant Skin And Subcutaneous Tissue documented as of this encounter Visit Diagnoses Not on filedocumented in this encounter Additional Health Concerns Assessment Noted Time PHQ-9 Depression Total Score: 9 12/27/2016 10:29 AM CS T documented as of this encounter
--- OUTSIDE RECORDS SUMMARY | 2022-07-25 09:14 | XMS_ITS | Encounter Summary ---
:1985 Author Organization [facility] Address [address] [place] [address] Care Team Providers Name Role Phone Unavailable Primary Care Provider Unavailable Encounter Details Date Type Department Care Team Description 02/01/2017 Hospital Encounter HX NO MAPPING Jessica Brooks, ROLANDO, P.A.-C. [address], [place] [address] (Wo rk) Social History [...] How often do you attend mosque or christian Never 07/04/2019 services? 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 [address] [phone] (Wo rk) Scheduled Procedures Name Priority Associated Diagnoses Date/Time LIFT THIGH Excessive And Redundant Skin And Subcutaneous Tissue documented as of this encounter Visit Diagnoses Not on filedocumented in this encounter Additional Health Concerns Assessment Noted Time PHQ-9 Depression Total Score: 9 12/27/2016 10:29 AM CS T documented as of this encounter
--- OUTSIDE RECORDS SUMMARY | 2022-07-25 09:14 | XMS_ITS | Encounter Summary ---
:1985 Author Organization [facility] Address [address] [place] [address] Care Team Providers Name Role Phone Unavailable Primary Care Provider Unavailable Encounter Details Date Type Department Care Team Description 10/27/2016 Hospital Encounter [facility]X [facility] Ranjit Lee M.D. [address] [place], [place] [phone] (Wo rk) Social History [...] How often do you attend yazidi or zoroastrianism Never 07/04/2019 services? 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 10:53 AM DUKEY RIDER documented as of this encounter Last Filed Vital Signs Vital Sign Reading Time Taken Comments Blood Pressure 116/80 10/27/2016 8:10 AM DUKEY RIDER Pulse - - Temperature - - Respiratory Rate - - Oxygen Saturation - - Inhaled Oxygen Concentration - - Weight 127 kg (281 lb 1.4 oz) 10/27/2016 8:10 AM DUKEY RIDER Height 164 cm (5' 4.57) 10/27/2016 8:10 AM DUKEY RIDER Body Mass Index 47.4 10/27/2016 8:10 AM DUKEY RIDER documented in this encounter Progress Notes Kristi Melissa M.D. - 10/27/2016 7:55 AM CST [id number] CHIEF COMPLAINT/REASON FOR VISIT OB followup and [...] into the EMR and updated today. IMPRESSION/REPORT/PLAN Hksvdl-hazx-dfl 5, para 3-0-1-3 female at 33+3 weeks [...] MELISSA MD On: 11/02/2016 03:05 PM Source: [facility] MHSDOLBEYNONRADSYS Document Id: [id number] Y RIDER documented in this encounter Procedure Notes Alexandra العلي L.PRodrigoNRodrigo - 10/27/2016 8:19 AM CST Urine Dipstick Urine Dipstick Entered On: 10/27/2016 8:19 DUKEY RIDER Performed On: 10/27/2016 8:19 DUKEY RIDER by ALEXANDRA العلي LPN Urine Dipstick UA Color POC : Yellow UA Appear POC : Clear UA Protein POC : Trace UA Glucose POC : Negative ALEXANDRA العلي LPN - 10/27/2016 8:19 DUKEY RIDER Source: [facility] POWERCHART Document Id: [id number] DUKEY RIDER!6 Y RIDER documented in this encounter Nursing Notes Alexandra العلي L.PRodrigoNRodrigo - 10/27/2016 8:18 AM CST Zika At this time, there are 3 screening questions: 1. Have you or your partner traveled outside of [place] up to 6 months prior to this ? No 2. If so, where specifically have you or your partner traveled? Country, state? NA 3. If you or your partner have traveled to [place] since April 19, 2016; where in [place] did you travel? No Electronically Signed By: ALEXANDRA العلي LPN On: 10/27/2016 08:18 AM Source: [facility] POWERCHART Document Id: [id number] Y RIDER documented in this encounter Miscellaneous Notes Miscellaneous - Kristi Melissa M.D. - 10/30/2016 11:44 AM CST Ambulatory Patient Summary [address] [id number] Visit Information Name: NANCY PHILLIPS [facility] Number: [id number] Current Date: 10/30/2016 11:44:36 Physicians [...] Date Time Location Provider 11/10/2016 11:30 MERE WIND TURBINE BLADE REPAIR TECHNICIAN Kristi Melissa MD 11/17/2016 14:30 MERE WIND TURBINE BLADE REPAIR TECHNICIAN Kristi Melissa MD 11/24/2016 14:30 MERE WIND TURBINE BLADE REPAIR TECHNICIAN Kristi Melissa MD Attention: Contact your local [...] if you dont have one. Go to [email or web address] and click on Create Your Account. Then, follow the directions to complete the online form. Youll be asked for your [facility] number which you can find at the top of this document. Your Goals/Additional instructions: Source: [facility] POWERCHART Document Id: [id number] Y RIDER Miscellaneous - Kristi Melissa M.D. - 10/30/2016 11:44 AM CST Ambulatory Discharge Medication List [address] [id number] Visit Information Name: NANCY PHILLIPS [facility] Number: [id number] Current Date: 10/30/2016 11:44:36 Attending [...] MD Signed On:30-OCT-2016 11:44:34 Additional Information: Source: [facility] POWERCHART Document Id: [id number] Y RIDER Miscellaneous - Alexandra العلي, L.P.N. - 10/27/2016 8:41 AM CST Cottonseed Meat Presser Documentation Cottonseed Meat Presser Documentation Entered On: 10/27/2016 8:42 DUKEY RIDER Performed On: 10/27/2016 8:41 DUKEY RIDER by ALEXANDRA العلي LPN Cottonseed Meat Presser Documentation Exam/Procedure Performed : Cervical check CD Cottonseed Meat Presser Present : Yes CD Cottonseed Meat Presser Name : Susana العلي LPN Present in Room During Exam/Procedure : Alone ALEXANDRA العلي LPN - 10/27/2016 8:41 DUKEY RIDER Source: [facility] POWERCHART Document Id: [id number] DUKEY RIDER!6 Y RIDER Miscellaneous - Alexandra العلي L.P.N. - 10/27/2016 8:10 AM CST Adult Sweater Operator Intake/History Adult Sweater Operator Intake/History Entered On: 10/27/2016 8:11 DUKEY RIDER Performed On: 10/27/2016 8:10 DUKEY RIDER by ALEXANDRA العلي LPN Intake Chief Complaint [...] kg/m2 ALEXANDRA العلي LPN - 10/27/2016 8:10 DUKEY RIDER General Info Languages : Ukrainian Is Patient Female and 13-50 no hysterectomy : Yes Status : Confirmed positive Are you ? : No ALEXANDRA العلي LPN - 10/27/2016 8:10 DUKEY RIDER Subjective Pain Symptoms : No ALEXANDRA العلي LPN - 10/27/2016 8:10 DUKEY RIDER Dependent Habits Exposure to Tobacco Smoke : Other: never Smoking Status : Never smoker Tobacco 2A : No Tobacco Use/Currently Using : No Tobacco Use/Last 30 Days : No Tobacco Use/Last 12 months : No ALEXANDRA العلي LPN - 10/27/2016 8:10 DUKEY RIDER Caffeine Use Grid Caffeine Use : Current Type : Soft drinks Frequency : Daily Amount : regular 1-2 cans daily ALEXANDRA العلي LPN - 10/27/2016 8:10 DUKEY RIDER Source: [facility] POWERCHART Document Id: [id number] DUKEY RIDER!36 Y RIDER documented in this encounter Plan of Treatment Upcoming Encounters Date Type Specialty Care Team Description 08/17/2022 Procedure visit Neurology Marina Winter M.D., M.P.H. [address] [place], [place] [phone] (Wo rk) Scheduled Procedures Name Priority Associated Diagnoses Date/Time LIFT THIGH Excessive And Redundant Skin And Subcutaneous Tissue documented as of this encounter Procedures Procedure Name Priority Date/Time Associated Comments Diagnosis DIPSTICK, POCT, U Routine 10/27/2016 8:19 AM Resu lts for this (NURSING) INTERFACED DUKEY RIDER procedu re are in the results section. documented in this encounter Results Dipstick, POCT, Urine (nursing) (10/27/2016 8:19 AM DUKEY RIDER) Analysis Performed At [facility] Time Signature Color Yellow POWERCHART Appearance Clear POWERCHART Protein, POCT, Trace POWERCHART U Glucose, POCT, Negative POWERCHART U Specimen (Source) Anatomical Collection Method Collection Time Re ceived Time Location / / Volume Laterality 10/27/2016 8:19 AM DUKEY RIDER Kristi Melissa M.D. LAB POCT ORDERABLES - DEVICE Performing Organization Address City/State/ZIP Code Phon e Number POWERCHART documented in this encounter Visit Diagnoses Not on filedocumented in this encounter Additional Health Concerns Assessment Noted Time PHQ-9 Depression Total Score: 13 06/14/2015 3:56 PM CD T documented as of this encounter
--- OUTSIDE RECORDS SUMMARY | 2022-07-25 09:14 | XMS_ITS | Encounter Summary ---
:1985 Author Organization [facility] Address [address] [place] [address] Care Team Providers Name Role Phone Unavailable Primary Care Provider Unavailable Encounter Details Date Type Department Care Team Description 01/24/2017 Hospital Encounter HX [facility] Ranjit Kim M.D. [address] [place], [place] [phone] (Wo rk) Social History [...] How often do you attend methodist or taoist Never 07/04/2019 services? 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 [address] [phone] (Wo rk) Scheduled Procedures Name Priority Associated Diagnoses Date/Time LIFT THIGH Excessive And Redundant Skin And Subcutaneous Tissue documented as of this encounter Visit Diagnoses Not on filedocumented in this encounter Additional Health Concerns Assessment Noted Time PHQ-9 Depression Total Score: 9 12/27/2016 10:29 AM CS T documented as of this encounter
--- OUTSIDE RECORDS SUMMARY | 2022-07-25 09:14 | XMS_ITS | Encounter Summary ---
:1985 Author Organization [facility] Address [address] [place] [address] Care Team Providers Name Role Phone Unavailable Primary Care Provider Unavailable Encounter Details Date Type Department Care Team Description 11/10/2016 Hospital Encounter HX [facility] Ranjit Lee M.D. [address], [place] [phone] (Wo rk) Social History [...] How often do you attend restorationist or samaritan Never 07/04/2019 services? 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 - 11/10/2016 10:55 AM CST [id number] CHIEF COMPLAINT/REASON FOR VISIT OB followup. HISTORY [...] contractions and has been seen at the [facility] center for this. Since I saw her [...] reactive today. 11. Followup: One week. Kristi eMlissa M.D./pepe Electronically Signed By: KRISTI MELISSA MD On: 11/13/2016 05:22 PM Modified by and Electronically Signed by: KRISTI MELISSA MD On: 11/13/2016 05:22 PM [facility] Document Id: [id number] T TEAM CLERK documented in this encounter Procedure Notes Kristi [...] MELISSA MD On: 11/13/2016 05:19 PM [facility] Document Id: [id number] T TEAM CLERK documented in this encounter Nursing Notes Alexandra العلي L.PRodrigoNRodrigo - 11/10/2016 11:40 AM CST Zika At this time, there are 3 screening questions: 1. Have you or your partner traveled outside of [place] up to 6 months prior to this ? No- Denies 2. If so, where specifically have you or your partner traveled? Country, state? 3. If you or your partner have traveled to [place] since April 19, 2016; where in [place] did you travel? No- Denies Electronically Signed By: ALEXANDRA العلي LPN On: 11/10/2016 11:40 AM Source: [facility] POWERCHART Document Id: [id number] T TEAM CLERK documented in this encounter Miscellaneous Notes Miscellaneous - Kristi Melissa M.D. - 11/11/2016 10:17 AM CST Ambulatory Patient Summary [address] [id number] Visit Information Name: JOSEPHINE PHILLIPSNAILA JOHNSON [facility] Number: [id number] Current Date: 11/11/2016 10:17:24 Physicians [...] Date Time Location Provider 11/17/2016 14:30 FBANA MATH AND PHYSICS INSTRUCTOR Kristi Melissa MD 11/24/2016 14:30 FBANA MATH AND PHYSICS INSTRUCTOR Kristi Melissa MD Attention: Contact your local [...] online form. Youll be asked for your [facility] number which you can find at the top of this document. Your Goals/Additional instructions: Source: [facility] POWERCHART Document Id: [id number] T TEAM CLERK Miscellaneous - RaKristi ovalle M.D. - 11/11/2016 10:17 AM CST Ambulatory Discharge Medication List [address] [id number] Visit Information Name: NANCY PHILLIPS [facility] Number: [id number] Current Date: 11/11/2016 10:17:23 Attending [...] MD Signed On:11-NOV-2016 10:17:21 Additional Information: Source: [facility] POWERCHART Document Id: [id number] T TEAM CLERK Miscellaneous - Alexandra العلي, L.P.N. - 11/10/2016 11:29 AM CST Adult Methods Study Analyst Intake/History Adult Methods Study Analyst Intake/History Entered On: 11/10/2016 11:39 COUNT TEAM CLERK Performed On: 11/10/2016 11:29 COUNT TEAM CLERK by ALEXANDRA العلي SONOGRAPHY TECHNICIAN Intake Chief Complaint : OBFU 35 + [...] kg/m2 ALEXANDRA العلي LPN - 11/10/2016 11:29 COUNT TEAM CLERK General Info Languages : Japanese Is Patient Female and 13-50 no hysterectomy : Yes Status : Confirmed positive Are you ? : No ALEXANDRA العلي LPN - 11/10/2016 11:29 COUNT TEAM CLERK Subjective Pain Symptoms : No ALEXANDRA العلي LPN - 11/10/2016 11:29 COUNT TEAM CLERK Dependent Habits Exposure to Tobacco Smoke : Other: never Smoking Status : Never smoker Tobacco 2A : No Tobacco Use/Currently Using : No Tobacco Use/Last 30 Days : No Tobacco Use/Last 12 months : No ALEXANDRA العلي LPN - 11/10/2016 11:29 COUNT TEAM CLERK Caffeine Use Grid Caffeine Use : Current Type : Soft drinks Frequency : Daily Amount : regular 1-2 cans daily ALEXANDRA العلي LPN - 11/10/2016 11:29 COUNT TEAM CLERK Source: [employer] Document Id: [id number] COUNT TEAM CLERK!35 T TEAM CLERK documented in this encounter Plan of Treatment Upcoming Encounters Date Type Specialty Care Team Description 08/17/2022 Procedure visit Neurology Marina Winter M.D., M.P.H. [address] [place] [phone] (Wo rk) Scheduled Procedures Name Priority Associated Diagnoses Date/Time LIFT THIGH Excessive And Redundant Skin And Subcutaneous Tissue documented as of this encounter Visit Diagnoses Not on filedocumented in this encounter Additional Health Concerns Assessment Noted Time PHQ-9 Depression Total Score: 13 06/14/2015 3:56 PM CD T documented as of this encounter
--- OUTSIDE RECORDS SUMMARY | 2022-07-25 09:14 | XMS_ITS | Encounter Summary ---
:1985 Author Organization [facility] Address [address] [place] [address] Care Team Providers Name Role Phone Unavailable Primary Care Provider Unavailable Encounter Details Date Type Department Care Team Description 12/07/2016 Hospital Encounter HX [facility] Ranjit Lee M.D. [address], [place] [phone] (Wo rk) Social History [...] How often do you attend congregational or episcopalian Never 07/04/2019 services? Do you [...] Recorded Female 10/16/2018 10:53 AM DIRECTOR OF PLACEMENT documented as of this encounter Last Filed Vital Signs Vital Sign Reading Time Taken Comments Blood Pressure 128/78 12/07/2016 3:48 PM DIRECTOR OF PLACEMENT Pulse - - Temperature - - Respiratory Rate - - Oxygen Saturation - - Inhaled Oxygen Concentration - - Weight 122 kg (268 lb 11.9 oz) 12/07/2016 3:48 PM DIRECTOR OF PLACEMENT Height 164 cm (5' 4.57) 12/07/2016 3:48 PM DIRECTOR OF PLACEMENT Body Mass Index 45.32 12/07/2016 3:48 PM DIRECTOR OF PLACEMENT documented in this encounter Progress Notes Kristi Melissa M.D. - 12/07/2016 3:26 PM CST [id number] CHIEF COMPLAINT/REASON FOR VISIT Postop check. HISTORY [...] MELISSA MD On: 12/09/2016 02:54 PM Source: [facility] MHSDOLBEYNONRADSYS Document Id: [id number] CTOR OF PLACEMENT documented in this encounter Miscellaneous Notes Miscellaneous - Kristi Melissa M.D. - 12/07/2016 5:53 PM CST Ambulatory Discharge Medication List [address] [id number] Visit Information Name: NANCY PHILLIPS [facility] Number: [id number] Current Date: 12/07/2016 17:53:45 [...] up to 2 weeks New Routed to [facility] [address] [place] [address] venlafaxine (Effexor XR 150 mg oral capsule, extended release) 1 cap, Oral, once a day venlafaxine (Effexor XR 75 mg oral capsule, extended release) 1 cap, Oral, once a day New Routed to [facility] [address] [place] [address] Stop [...] MD Signed On:07-DEC-2016 17:53:43 Additional Information: Source: [facility] POWERCHART Document Id: [id number] CTOR OF PLACEMENT Miscellaneous - Kristi Melissa M.D. - 12/07/2016 5:53 PM CST Ambulatory Patient Summary [address] [place] [id number] Visit Information Name: NANCY PHILLIPS [facility] Number: [id number] Current Date: 12/07/2016 17:53:46 [...] up to 2 weeks [facility] [address] [place] [address] venlafaxine (Effexor XR 150 mg oral capsule, extended release) 1 cap, Oral, once a day venlafaxine (Effexor XR 75 mg oral capsule, extended release) 1 cap, Oral, once a day New Routed to [facility] [address] [place] [address] Stop [...] Date Time Location Provider 12/15/2016 14:00 FBANA INFORMATION BROKER Kristi Melissa MD [facility]2016 09[facility] 01/11/2017 13:15 FBANA INFORMATION BROKER Kristi Melissa MD Attention: Contact your local [...] if you dont have one. Go to [email or web address] and click on Create Your Account. Then, follow the directions to complete the online form. Youll be asked for your [facility] number which you can find at the top of this document. Your Goals/Additional instructions: Source: [facility] POWERCHART Document Id: [id number] CTOR OF PLACEMENT Miscellaneous - Alexandra العلي, L.P.N. - 12/07/2016 3:48 PM CST Adult Tree Puller Intake/History Adult Tree Puller Intake/History Entered On: 12/07/2016 15:49 DIRECTOR OF PLACEMENT Performed On: 12/07/2016 15:48 DIRECTOR OF PLACEMENT by ALEXANDRA العلي HOUSE CALLS NURSE PRACTITIONER Intake Chief Complaint : Post op Systolic [...] العلي LPN - 12/07/2016 15:48 DIRECTOR OF PLACEMENT General Info Languages : Maltese Is Patient Female and 13-50 no hysterectomy : Yes Status : Patient denies Are you ? : No ALEXANDRA العلي LPN - 12/07/2016 15:48 DIRECTOR OF PLACEMENT Subjective Pain Symptoms : No ALEXANDRA العلي LPN - 12/07/2016 15:48 DIRECTOR OF PLACEMENT Dependent Habits Exposure to Tobacco Smoke : Other: never Smoking Status : Never smoker Tobacco 2A : No Tobacco Use/Currently Using : No Tobacco Use/Last 30 Days : No Tobacco Use/Last 12 months : No ALEXANDRA العلي LPN - 12/07/2016 15:48 DIRECTOR OF PLACEMENT Caffeine Use Grid Caffeine Use : Current Type : Soft drinks Frequency : Daily Amount : regular 1-2 cans daily ALEXANDRA العلي LPN - 12/07/2016 15:48 DIRECTOR OF PLACEMENT Source: [employer] Document Id: [id number] DIRECTOR OF PLACEMENT!34 CTOR OF PLACEMENT documented in this encounter Plan of Treatment Upcoming Encounters Date Type Specialty Care Team Description 08/17/2022 Procedure visit Neurology Marina Winter M.D., M.P.H. [address] [phone] (Wo rk) Scheduled Procedures Name Priority Associated Diagnoses Date/Time LIFT THIGH Excessive And Redundant Skin And Subcutaneous Tissue documented as of this encounter Visit Diagnoses Not on filedocumented in this encounter Additional Health Concerns Assessment Noted Time PHQ-9 Depression Total Score: 13 06/14/2015 3:56 PM CD T documented as of this encounter
--- OUTSIDE RECORDS SUMMARY | 2022-07-25 09:14 | XMS_ITS | Encounter Summary ---
:1985 Author Organization [facility] Address [address] [place] [address] Care Team Providers Name Role Phone Unavailable Primary Care Provider Unavailable Encounter Details Date Type Department Care Team Description 11/20/2016 Hospital Encounter HX NO MAPPING Eva Booth M.D. [address] [place], [place] [phone] (Wo rk) Social History [...] How often do you attend orthodox or yarsanism Never 07/04/2019 services? 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 10:53 AM SCALLOP RAKER documented as of this encounter Miscellaneous Notes Miscellaneous - Conversion, Historical Provider Ser - 11/20/2016 11:59 PM SCALLOP RAKER Coding Summary-Paper Based CODING DATE: 11/29/2016 FINAL [facility] STATUS: * Discharged to Home or Self [...] [place] Date Saved: 11/29/2016 12:25 pm Source: [facility] POWERDestineer Document Id: [id number] documented in this encounter Plan of Treatment Upcoming Encounters Date Type Specialty Care Team Description 08/17/2022 Procedure visit Neurology Marina Winter M.D., M.P.H. [address] [phone] (Wo rk) Scheduled Procedures Name Priority Associated Diagnoses Date/Time LIFT THIGH Excessive And Redundant Skin And Subcutaneous Tissue documented as of this encounter Visit Diagnoses Not on filedocumented in this encounter Additional Health Concerns Assessment Noted Time PHQ-9 Depression Total Score: 13 06/14/2015 3:56 PM CD T documented as of this encounter
--- OUTSIDE RECORDS SUMMARY | 2022-07-25 09:15 | XMS_ITS | Encounter Summary ---
:[address] [facility] Address [address] [place] [address] Care Team Providers Name Role Phone Unavailable Primary Care Provider Unavailable Encounter Details Date Type Department Care Team Description 09/21/2016 Hospital Encounter [facility]X [facility] Promise Rouse M.D. [address] [place], [place] [phone] (Wo rk) Social History [...] How often do you attend sikh or rastafarian Never 07/04/2019 services? 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 - 09/21/2016 9:46 AM CST CHIEF COMPLAINT: care, third trimester. HISTORY OF PRESENT ILLNESS: This patient presents for a visit in the third trimester. She is being treated for right frontal sinusitis and the facial pain is improving, but the right side of her face is front tender to touch. She has been sick [...] TEJEDA MD On: 09/21/2016 09:48 AM Source: [facility] POWERCHART Document Id: [id number] RICT [facility] ADMINISTRATOR documented in this encounter Miscellaneous Notes Miscellaneous - Shar Tejeda M.D. - 09/21/2016 9:46 AM CST Ambulatory Patient Summary [facility] [address] [place], [place] [id number] Visit Information Name: NANCY PHILLIPS [facility] Number: [id number] Current Date: 09/21/2016 09:46:12 Physicians [...] case of emergency. Electronically Signed By: SHAR TEJDEA MD Signed On:21-SEP-2016 09:46:08 Your Allergies & [...] Date Time Location Provider 10/05/2016 13:15 [facility] DISEASE MANAGEMENT NURSE Shar Tejeda MD 10/13/2016 09:45 [facility] DISEASE MANAGEMENT NURSE Emmy RED, Cassie 10/19/2016 13:15 [facility] DISEASE MANAGEMENT NURSE Shar Tejeda MD 11/02/2016 13:15 [facility] DISEASE MANAGEMENT NURSE Shar Tejeda MD 11/16/2016 13:15 [facility] DISEASE MANAGEMENT NURSE Shar Tejeda MD 11/23/2016 13:15 [facility] DISEASE MANAGEMENT NURSE Shar Tejeda MD 12/15/2016 11:15 [facility] DISEASE MANAGEMENT NURSE Ayanna Xie NP 01/12/2017 13:15 [facility] DISEASE MANAGEMENT NURSE Shar Tejeda MD Attention: Contact your local [...] if you dont have one. Go to [email or web address] and click on Create Your Account. Then, follow the directions to complete the online form. Youll be asked for your [facility] number which you can find at the top of this document. Your Goals/Additional instructions: Source: [facility] POWERCHART Document Id: [id number] RI[address] ADMINISTRATOR Miscellaneous - Shar Tejeda M.D. - 09/21/2016 9:46 AM CST Ambulatory Discharge Medication List [facility] [address] [place] [id number] Visit Information Name: NANCY PHILLIPS [facility] Number: [id number] Current Date: 09/21/2016 09:46:11 Attending [...] MD Signed On:21-SEP-2016 09:46:08 Additional Information: Source: [facility] POWERCHART Document Id: [id number] RI[address] ADMINISTRATOR Miscellaneous - Laverne Conti, L.P.N. - 09/21/2016 8:49 AM CST Adult Parts Manager Intake/History Adult Parts Manager Intake/History Entered On: 09/21/2016 8:[address] ADMINISTRATOR Performed On: 09/21/2016 8:[address] ADMINISTRATOR by LAVERNE CONTI LPN Intake Chief Complaint [...] kg/m2 LAVERNE CONTI LPN - 09/21/2016 8:[address] ADMINISTRATOR General Info Languages : Azeri Is Patient Female and 13-50 no hysterectomy : No KATHERIN, LAVERNE D RELAY SHOP TESTER - 09/21/2016 8:[address] ADMINISTRATOR Subjective Pain Symptoms : No LAVERNE CONTI LPN - 09/21/2016 8:[address] ADMINISTRATOR Dependent Habits Exposure to Tobacco Smoke : Other: never Smoking Status : Never smoker Tobacco 2A : No Tobacco Use/Currently Using : No Tobacco Use/Last 30 Days : No Tobacco Use/Last 12 months : No LAVERNE CONTI LPN - 09/21/2016 8:[address] ADMINISTRATOR Caffeine Use Grid Caffeine Use : Current Type : Soft drinks Frequency : Daily Amount : regular 1-2 cans daily LAVERNE CONTI LPN - 09/21/2016 8:[address] ADMINISTRATOR Source: [employer] Document Id: [id number] DISTRICT COURT ADMINISTRATOR![address] ADMINISTRATOR documented in this encounter Plan of Treatment Upcoming Encounters Date Type Specialty Care Team Description 08/17/2022 Procedure visit Neurology Marina Winter M.D., M.P.H. [address] [phone] (Wo rk) Scheduled Procedures Name Priority Associated Diagnoses Date/Time LIFT THIGH Excessive And Redundant Skin And Subcutaneous Tissue documented as of this encounter Visit Diagnoses Not on filedocumented in this encounter Additional Health Concerns Assessment Noted Time PHQ-9 Depression Total Score: 13 06/14/2015 3:56 PM CD T documented as of this encounter
--- OUTSIDE RECORDS SUMMARY | 2022-07-25 09:15 | XMS_ITS | Encounter Summary ---
:1985 Author Organization [facility] Address [address] [place] [address] Care Team Providers Name Role Phone Unavailable Primary Care Provider Unavailable Encounter Details Date Type Department Care Team Description 04/07/2016 Hospital Encounter [facility]X [facility] Nahun Tejeda M.D. 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 [address] [place] [phone] (Wo rk) Scheduled Procedures Name Priority [...] (ABNORMAL) Urine Microscopic (04/07/2016 11:15 AM CDT) [facility] Method Time Signature HXUR WBC. None Seen [...] M.D. LAB URINE ORDERABLES Performing Organization Address [facility]/ZIP Code Phon e Number POWERCHART (ABNORMAL) Urinalysis, Routine (04/07/2016 11:15 AM CDT) [facility] Method Time Signature HXUr Color Yellow Yellow POWERCHART Clarity Clear Clear POWERCHART Glucose Negative Negative POWERCHART HXBILIRUBIN Negative Negative POWERCHART Ketones, QL(U) Negative Negative POWERCHART Specific 1.026 1.001 - POWERCHART [place], POCT, U 1.035 pH, POCT, Urine 5.0 [...] M.D. LAB URINE ORDERABLES Performing Organization Address [facility] Code Phon e Number POWERCHART Bacterial Culture, Aerobic, Urine (04/07/2016 11:15 AM CDT) [facility] Method Time Signature Bacterial POWERCHART Culture, Aerobic, Urine HXFinal Mixed carmelo. No POWERCHART further studies unless notified. HXFinal [place] POWERCHART Microbiology laboratory [phone]. Specimen (Source) Anatomical Collection Method Collection Time Re ceived Time Location / / Volume Laterality Urine, First 04/07/2016 11:15 Voided AM CDT Comment: P Nahun Tejeda M.D. LAB MICROBIOLOGY - GENERAL O RDERABLES Performing Organization Address City/[facility] Code Phon e Number POWERCHART Antibody Screen (04/07/2016 11:07 AM CDT) athologist Signature Antibody Negative POWERCHART Screen Comment: Test Performed by: [address] [address] Lab oratory Director: Hardik G. Morice, II, M.D., Ph.D. Specimen (Source) Anatomical Collection Method Collection Time Re ceived Time Location / / Volume Laterality 04/07/2016 11:07 AM CDT Nahun Tejeda M.D. LAB BLOOD BANK TEST ORDERABL ES Performing Organization Address [facility] Phon e Number POWERCHART Grouping and Rh-Gallegos FLIP, see #[id number] (04/07/2016 11:07 AM CDT) Patholo gist Method Time Signature HX Grouping A Positive POWERCHART and Rh Specimen (Source) Anatomical Collection Method Collection Time Re ceived Time Location / / Volume Laterality 04/07/2016 11:07 AM CDT Nahun Tejeda M.D. LAB BLOOD BANK TEST ORDERABL ES Performing Organization Address [facility] Code Phon e Number POWERCHART Automated Differential [...] M.D. LAB BLOOD ADD-ON Performing Organization Address City/[facility] Code Phon e Number POWERCHART CBC with Differential (04/07/2016 11:07 AM CDT) P athologist Signature Leukocytes 7.8 3.4 - 10.5 POWERCHART X109L Erythrocytes 4.37 3.90 - 5.03 POWERCHART R2826T Hemoglobin 13.1 12.0 - 15.5 POWERCHART GDL [...] M.D. LAB BLOOD ADD-ON Performing Organization Address City/[facility] Code Phon e Number POWERCHART Profile II without CBC/Serum (04/07/2016 11:07 AM CDT) P athologist Signature HBs Antigen, S Negative Negative POWERCHART Comment: Test Performed by: [facility] [employer] [address] Search Analyst: Hardik Burroughs II, M.D., Ph.D. Syphilis IgG Ab, S Negative Negative POWERCHART Comment: No serologic evidence of exposure to syp hilis. Test Performed by: [facility] [place] [address] Search Analyst: Hardik Burroughs II, M.D., Ph.D. HX Rubella IgG-[place] Positive POWERCHART Comment: Results suggest response to immunization or prior exposure to the virus. REFERENCE VALUE------ Vaccinated: Positive (>=1.0 AI) Unvaccinated: Negative (<=0.7 AI) Rubella IgG Antibody Index 1.8 POW ERCHART Comment: Test Performed by: [facility] [place] [address] Search Analyst: Hardik Burroughs II, M.D., Ph.D. Specimen (Source) Anatomical Collection Method Collection Time Re ceived Time Location / / Volume Laterality Blood 04/07/2016 11:07 AM CDT Nahun Tejeda M.D. LAB BLOOD NON ADD-ON Performing Organization Address City/[facility] Code Phon e Number POWERCHART HIV-1/-2 Ag and Ab Screen (04/07/2016 11:07 AM CDT) P athologist Signature HIV-1/-2 Negative Negative POWERCHART Antibody Comment: Negative result does not rule out HIV in fection. If acute HIV infection is suspected in a hi gh-risk individual, submit plasma specimen for H IV-1 RNA quantification test (HIVDQ) and/or HIV-2 DNA/RNA test (FHV2Q). Test Performed by: [place] [address] Search Analyst: Hardik Burroughs II, M.D., Ph.D. Specimen (Source) [...] LAB BLOOD ADD-ON Performing Organization Address City/State/[facility] Code Phon e Number POWERCHART documented in this encounter Visit Diagnoses Not on filedocumented in this encounter Additional Health Concerns Assessment Noted Time PHQ-9 Depression Total Score: 13 06/14/2015 3:56 PM CD T documented as of this encounter
--- OUTSIDE RECORDS SUMMARY | 2022-07-25 09:15 | XMS_ITS | Encounter Summary ---
:1985 Author Organization [facility] Address [address] [place] [address] Care Team Providers Name Role Phone Unavailable Primary Care Provider Unavailable Encounter Details Date Type Department Care Team Description 04/20/2016 Hospital Encounter HX [facility] Promise Rouse M.D. [address] [place], [place] [phone] (Wo rk) Social History [...] How often do you attend methodist or scientology Never 07/04/2019 services? 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 - 04/20/2016 1:15 PM CDT Ambulatory Patient Education The following Patient Education Materials have been given to the patient: Patient Education Materials: Ultrasonic Welding Machine Operator Adapting to : First Trimester Ultrasonic Welding Machine Operator Adapting to : First Trimester As your [...] the risk of stillbirth or having a seq-tetiz-rixizi baby. If you smoke, quit now. ?? [...] see whats best for you both. ?? [phone] [facility], [address] [address], [place] [address]. All rights reserved. This information is not intended as a substitute for professional medical care. Always follow your healthcare professional's instructions. This document has images extracted. Please consider using [employer] for all your patient education needs. Source: [facility] POWERCHART Document Id: [id number] documented in this encounter Miscellaneous Notes Miscellaneous - Laverne Conti, L.P.N. - 04/20/2016 1:50 PM CDT Wharf Operator Documentation Wharf Operator Documentation Entered On: 04/20/2016 13:51 CDT Performed On: 04/20/2016 13:50 CDT by LAVERNE CONTI LPN Wharf Operator Documentation Exam/Procedure Performed : NOB cervical check CD Wharf Operator Present : Yes CD Wharf Operator Name : Lois Present in Room During Exam/Procedure : Alone LAVERNE CONTI LPN - 04/20/2016 13:50 CDT Source: [employer] Document Id: [id number] CDT!6 Miscellaneous - Laverne Conti L.PRodrigoNRodrigo - 04/20/2016 1:19 PM CDT Adult Retention Manager Intake/History Adult Retention Manager Intake/History Entered On: 04/20/2016 13:21 CDT Performed On: 04/20/2016 13:19 CDT by LAVERNE CONTI MANAGER OF CHANGE Intake Actual Weight : 136.2 kg(Converted to: 300 lb 4 oz) Dosing Weight Clinic : 136.2 kg Clinic BSA : 2.49 Body Mass Index : 50.64 kg/m2 LAVERNE CONTI [facility] - 04/20/2016 13:23 CDT Chief Complaint : NOB Systolic Blood Pressure : 126 mmHg Diastolic Blood Pressure : 70 mmHg NIBP Mean : 89 mmHg BP Location : Left upper extremity Blood Pressure Cuff Size : Large Height : 164 cm(Converted to: 5 ft 5 inch(es), 65 inch(es)) LAVERNE CONTI [facility] - 04/20/2016 13:19 CDT General Info Languages : Niuean Is Patient Female and 13-50 no hysterectomy : No LAVERNE CONTI [facility] - 04/20/2016 13:19 CDT Subjective Pain Symptoms : No LAVERNE CONTI [facility] - 04/20/2016 13:19 CDT Dependent Habits Exposure to Tobacco Smoke : Other: never Smoking Status : Never smoker Tobacco 2A : No Tobacco Use/Currently Using : No Tobacco Use/Last 30 Days : No Tobacco Use/Last 12 months : No LAVERNE CONTI [facility] - 04/20/2016 13:19 CDT Caffeine Use Grid Caffeine Use : Current Type : Soft drinks Frequency : Daily Amount : regular 1-2 cans daily LAVERNE CONTI [facility] - 04/20/2016 13:19 CDT Source: [employer] Document Id: [id number] CDT!6 Shar Salamanca M.D. - 04/20/2016 1:15 PM CDT Ambulatory Discharge Medication List [facility] [address] [place] [id number] Visit Information Name: NANCY PHILLIPS [facility] Number: [id number] Visit Date: 04/20/2016 13:15:41 Attending [...] MD Signed On:20-APR-2016 13:15:28 Additional Information: Source: [facility] POWERCHART Document Id: [id number] IDEAT Shar Salamanca M.D. - 04/20/2016 1:15 PM CDT Ambulatory Patient Summary [facility] [address] [place] [id number] Visit Information Name: NANCY PHILLIPS [facility] Number: [id number] Current Date: 04/20/2016 13:15:42 Physicians [...] the risk of stillbirth or having a mij-jtgnk-lojphz baby. If you smoke, quit now. ?? [...] see whats best for you both. ?? [phone] [facility], [address] [place] [address], [place] [address]. All rights reserved. This information is not [...] if you dont have one. Go to [email or web address] and click on Create Your Account. Then, follow the directions to complete the online form. Youll be asked for your [facility] number which you can find at the top of this document. Your Goals/Additional instructions: This document has images extracted. Please consider using [employer] for all your patient education needs. Source: [facility] POWERCHART Document Id: [id number] documented in this encounter Plan of Treatment Upcoming Encounters Date Type Specialty Care Team Description 08/17/2022 Procedure visit Neurology Marina Winter M.D., M.P.H. [address] [phone] (Wo rk) Scheduled Procedures [...] procedure are in the results section. PATHOLOGY RENAL MEDICINE PHYSICIAN Routine 04/20/2016 12:00 Results fo r this CYTOLOGY AM CDT procedure are i n the results section. documented in this encounter Results Chlamydia / Gonorrhoeae Amplified RNA (04/20/2016 1:27 PM CDT) Component Value Ref Test Analysis Performed At [facility] Method Time Signature HX GC by [...] Component Value Ref Test Analysis Performed At [facility] Method Time Signature HXChlamydia by POWERCHART [...] City/State/ZIP Code Phon e Number POWERCHART Pathology RENAL MEDICINE PHYSICIAN Cytology (04/20/2016 12:00 AM CDT) Specimen (Source) Anatomical Location Collection Method / Collectio n Time Received Time / Laterality Volume 04/20/2016 Narrative [facility] - 04/26/2016 2:15 PM CDT [facility] in [address] [place], [place] ??[id number] Patient Name: NANCY PHILLIPS Patient ID #: [id number] Collected: 04/20/2016 Address: City/State/Zip: [address] [place], [place] ??[address] Received: Reported: 04/21/2016 04/26/2016 Soc. Sec. #: ?/Age/Sex 1985 (Age: 31) ??F Physician(s): GLENN TEJEDA MD Copy To: ? [facility] ?? [id number] [address] [place], ??[place] ??[address] CYTOPATHOLOGY RENAL MEDICINE PHYSICIAN REPORT FINAL CYTOLOGIC DIAGNOSIS Pap Smear - [...]
--- OUTSIDE RECORDS SUMMARY | 2022-07-25 09:15 | XMS_ITS | Encounter Summary ---
:1985 Author Organization [facility] Address [address] [place] [address] Care Team Providers Name Role Phone Unavailable Primary Care Provider Unavailable Encounter Details Date Type Department Care Team Description 04/05/2016 Hospital Encounter HX [facility] Nahun Tejeda M.D. [address] [place], [place] [phone] (Wo rk) Social History [...] How often do you attend confucianist or orthodox Never 07/04/2019 services? 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 [address] [place] [phone] (Wo rk) Scheduled Procedures Name Priority [...]
--- OUTSIDE RECORDS SUMMARY | 2022-07-25 09:15 | XMS_ITS | Encounter Summary ---
:1985 Author Organization [facility] Address [address] [place] [address] Care Team Providers Name Role Phone Unavailable Primary Care Provider Unavailable Encounter Details Date Type Department Care Team Description 03/06/2016 Hospital Encounter HX [facility] Meche Montiel M.D. [address] [place], [place] [phone] (Wo rk) Social History [...] How often do you attend temple or uatsdin Never 07/04/2019 services? 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 From: VAHID ASH To: OW WAREHOUSE CHECKER Nurse; Sent: 04/04/2016 12:01:40 CDT Subject: Ileana Caller is: ( ) Patient ( ) Mother ( ) Father ( ) Spouse ( ) Daughter ( ) Son ( ) Pharmacy ( ) Other: Physician: Ileana Patient MRN #: Reason for Call: Message: Patient would like to schedule new OB appointments. Please call today [phone], after today call [phone]. Thank you Advice/Action: Source used: ( ) [...] back cell phone number ( ) Source: [facility] POWERCHART Document Id: [id number] Miscellaneous - Luis Armando Oquendo P.A.-C. - 03/07/2016 9:08 AM CDT From: LUIS ARMANDO OQUENDO To: NANCY PHILLIPS Sent: 03/07/2016 09:08:52 CDT Nancy, Your blood test came back negative. Let us know if you have any questions or concerns, Luis Armando Oquendo PA-C Results: Date Result Name Value Ref Range 03/06/2016 16:33 Beta hCG Qnt 4.0 IU/L ( - <=4.9) Source: [facility] [employer]Sale Document Id: [id number] Electronically signed by Conversion, [facility] Obstetrics Technician [id number] at 03/31/2017 1:41 PM CDT Miscellaneous - Luis Armando Oquendo P.A.-C. - [...] going well, Luis Armando Oquendo PA-C [facility]: [facility] Document Id: [id number] Electronically signed by Conversion, [facility] Obstetrics Technician [id number] at 03/31/2017 1:41 PM CDT Bunny - Annemarie Montiel M.D. - 03/06/2016 1:41 PM CDT Results Notification Document Contains Addenda Addendum by ANNEMARIE MONTIEL MD on March 07, 2016 18:26:24 CDT Luis Armando Oquendo addressed for pt today. Addendum by JESSICA CRISTOBAL on March 06, 2016 13:47:23 CDT From: JESSICA CRISTOBAL ([facility] 2W Nurse) To: ANNEMARIE MONTIEL MD; [...] Please advise From: ANNEMARIE MONTIEL MD To: [facility] 2W Nurse; Sent: 03/06/2016 13:41:11 CDT ! Show up: 03/06/2016 13:41:11 CDT Subject: Results Notification Actions: Notify patient of results Reminder Comments: test is negative Results: Date Result Name Value 03/06/2016 12:06 U Beta-hCG Ql Negative Source: [facility] POWERCHART Document Id: [id number] Electronically signed by Conversion, [facility] Obstetrics Technician [id number] at 03/31/2017 1:41 PM CDT Telephone Encounter - Conversion, Historical Provider Ser - 03/06/2016 1:39 PM CDT *Phone Message-InExchange Document Contains Addenda Addendum by JAYLENE CASANOVA CMA on March 06, 2016 16:36:20 CDT Order has been placed by LUIS ARMANDO OQUENDO PAC . See recent note in chart From: MARCY ALEGRIA ([facility] fr[facility]) To: [facility] 2W Nurse; Sent: 03/06/2016 13:39:17 CDT Subject: *Phone Message-Hathorne Caller is: ( x ) Patient ( [...] the blood test. Please call her at [phone] Advice/Action: Source used: ( ) Verbalizes understanding [...] back cell phone number ( ) Source: [facility] POWERCHART Document Id: [id number] documented in this encounter Plan of Treatment Upcoming Encounters Date Type Specialty Care Team Description 08/17/2022 Procedure visit Neurology Marina Winter M.D., M.P.H. [address] [phone] (Wo rk) Scheduled Procedures [...] Test, Qualitative, Urine (03/06/2016 12:06 PM CDT) [facility] gist Method Time Signature HXBeta-hCG Negative [...]
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
--- OUTSIDE RECORDS SUMMARY | 2022-07-25 09:15 | XMS_ITS | Encounter Summary ---
:1985 Author Organization [facility] Address [address] [place] [address] Care Team Providers Name Role Phone Unavailable Primary Care Provider Unavailable Encounter Details Date Type Department Care Team Description 04/20/2016 Hospital Encounter HX NO MAPPING Nahun Tejeda M.D. [address] [place], [place] [phone] (Wo rk) Social History [...] How often do you attend evangelical or evangelical Never 07/04/2019 services? 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 [address], [place] [phone] (Wo rk) Scheduled Procedures Name Priority Associated Diagnoses Date/Time LIFT THIGH Excessive And Redundant Skin And Subcutaneous Tissue documented as of this encounter Visit Diagnoses Not on filedocumented in this encounter Additional Health Concerns Assessment Noted Time PHQ-9 Depression Total Score: 13 06/14/2015 3:56 PM CD T documented as of this encounter
--- OUTSIDE RECORDS SUMMARY | 2022-07-25 09:15 | XMS_ITS | Encounter Summary ---
:1985 Author Organization [facility] Address [address] [place] [address] Care Team Providers Name Role Phone Unavailable [...] How often do you attend sabianism or evangelical Never 07/04/2019 services? 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 [address] [phone] (Wo rk) Scheduled Procedures Name Priority Associated Diagnoses Date/Time LIFT THIGH Excessive And Redundant Skin And Subcutaneous Tissue documented as of this encounter Visit Diagnoses Not on filedocumented in this encounter Additional Health Concerns Assessment Noted Time PHQ-9 Depression Total Score: 13 06/14/2015 3:56 PM CD T documented as of this encounter
--- OUTSIDE RECORDS SUMMARY | 2022-07-25 09:15 | XMS_ITS | Encounter Summary ---
:1985 Author Organization [facility] Address [address] [place] [address] Care Team Providers Name Role Phone Unavailable Primary Care Provider Unavailable Encounter Details Date Type Department Care Team Description 01/10/2016 Hospital Encounter [facility]X [facility] Emanuel Ha M.D. [address] [place] [phone] (Wo jesica) Social History Tobacco [...] How often do you attend temple or jewish Never 07/04/2019 services? 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 - 01/10/2016 3:10 PM CST [id number] Patient comes in with persistent cough. She was seen last week and it was thought to be more viral. 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 Addendum by MAILE ZARATE MD on March 06, 2016 10:05:36 CDT From: MAILE ZARATE MD To: [facility] 2W Nurse; Sent: 03/06/2016 10:05:36 CDT ! Subject: RE: *Phone Message I have ordered urine test which she can schedule as lab only. She should do her OB care with ELECTRIC REFRIGERATOR SERVICER due to repeat C/S and Gestational diabetes. I think she has seen [place] ELECTRIC REFRIGERATOR SERVICER in the past. Addendum by JOAQUINA GRANDA CMA on March 06, 2016 09:38:21 CDT From: JOAQUINA GRANDA CMA ([facility] 2 Nurse) To: MAILE ZARATE MD; Sent: [...] be ordered. please advise. From: YOLI RICH ([address] Grill Chef) To: [facility] 2 Nurse; Sent: 03/06/2016 07:28:28 CDT Subject: *Phone Message Caller is: ( x ) Patient ( ) Mother ( ) Father ( ) Spouse ( ) Daughter ( ) Son ( ) Pharmacy ( ) Other: Physician: jeyson Patient MRN #: Reason for Call: Message: patient calling- would like a prenancy test ordered- call her back at [phone] Advice/Action: Source used: ( ) Verbalizes understanding [...] back cell phone number ( ) Source: [facility] POWERCHART Document Id: [id number] Miscellaneous - Aure Polk R.N. - 01/10/2016 3:35 PM CST Adult Brake Drum Lathe Operator Intake/History Adult Brake Drum Lathe Operator Intake/History Entered On: 01/10/2016 15:37 CHICK GRADER Performed On: 01/10/2016 15:35 CHICK GRADER by AURE POLK LPN Intake Chief Complaint [...] kg/m2 AURE POLK LPN - 01/10/2016 15:35 CHICK GRADER General Info Information Given By : Patient Preferred Communication Mode : Verbal Languages : Qatari Is Patient Female and 13-50 no hysterectomy : Yes Status : Patient denies Are you ? : No AURE POLK LPN - 01/10/2016 15:35 CHICK GRADER Subjective Pain Symptoms : No AURE POLK LPN - 01/10/2016 15:35 CHICK GRADER Dependent Habits Exposure to Tobacco Smoke : Other: never Smoking Status : Never smoker Tobacco 2A : No Tobacco Use/Currently Using : No Tobacco Use/Last 30 Days : No Tobacco Use/Last 12 months : No AURE POLK LPN - 01/10/2016 15:35 CHICK GRADER Caffeine Use Grid Caffeine Use : Current Type : Soft drinks Frequency : Daily AURE POKL LPN - 01/10/2016 15:35 CHICK GRADER [facility] Document Id: [id number] CHICK GRADER!37 K GRADER documented in this encounter Plan of Treatment Upcoming Encounters Date Type Specialty Care Team Description 08/17/2022 Procedure visit Neurology Marina Winter M.D., M.P.H. [address] [phone] (Wo rk) Scheduled Procedures Name Priority Associated Diagnoses Date/Time LIFT THIGH Excessive And Redundant Skin And Subcutaneous Tissue documented as of this encounter Visit Diagnoses Not on filedocumented in this encounter Additional Health Concerns Assessment Noted Time PHQ-9 Depression Total Score: 06/14/2015 3:56 PM CD T documented as of this encounter
--- OUTSIDE RECORDS SUMMARY | 2022-07-25 09:15 | XMS_ITS | Encounter Summary ---
:1985 Author Organization [facility] Address [address] [place] [address] Care Team Providers Name Role Phone Unavailable Primary Care Provider Unavailable Encounter Details Date Type Department Care Team Description 06/22/2016 Hospital Encounter HX [facility] Promise Rouse M.D. [address] [place], [place] [phone] (Wo rk) Social History [...] How often do you attend religious or anabaptism Never 07/04/2019 services? 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 - 06/22/2016 4:49 PM CDT Ambulatory Discharge Medication List [facility] [address] [place] [id number] Visit Information Name: NANCY PHILLIPS [facility] Number: [id number] Visit Date: 06/22/2016 16:49:16 Attending [...] MD Signed On:22-JUN-2016 16:49:13 Additional Information: Source: [facility] POWERCHART Document Id: [id number] Miscellaneous - Shar Tejeda M.D. - 06/22/2016 4:49 PM CDT Ambulatory Patient Summary [facility] [address] [facility] [address] [place], [place] [phone] Visit Information Name: NANCY PHILLIPS [facility] Number: [id number] Current Date: 06/22/2016 16:49:16 Physicians [...] Date Time Location Provider 07/27/2016 13:00 OWOC FASHION BUYING INTERNSHIP OWOC Mate Ship Ultrasound Room 3 07/27/2016 14:00 OWOC F[employer] BUYING [employer]NS[employer]IP Shar Tejeda MD 08/24/2016 13:30 OWOC FASHION BUYING INTERNSHIP Shar Tejeda MD Attention: Contact your local [...] if you dont have one. Go to [email or web address] and click on Create Your Account. Then, follow the directions to complete the online form. Youll be asked for your [facility] number which you can find at the top of this document. Your Goals/Additional instructions: Source: [facility] POWERCHART Document Id: [id number] Miscellaneous - Chinyere Espinal L.P.N. - 06/22/2016 2:47 PM CDT Adult Assembler Skylights Intake/History Adult Assembler Skylights Intake/History Entered On: 06/22/2016 14:50 CDT Performed [...] Information Given By : Patient Languages : Australian Is Patient Female and 13-50 no hysterectomy [...] ESPINAL PRADEEP - 06/22/2016 14:47 CDT [facility] Document Id: [id number] CDT!42 documented in this encounter Plan of Treatment Upcoming Encounters Date Type Specialty Care Team Description 08/17/2022 Procedure visit Neurology Marina Winter M.D., M.P.H. [address] [place] [phone] (Wo rk) Scheduled Procedures Name Priority Associated Diagnoses Date/Time LIFT THIGH Excessive And Redundant Skin And Subcutaneous Tissue documented as of this encounter Visit Diagnoses Not on filedocumented in this encounter Additional Health Concerns Assessment Noted Time PHQ-9 Depression Total Score: 13 06/14/2015 3:56 PM CD T documented as of this encounter
--- OUTSIDE RECORDS SUMMARY | 2022-07-25 09:15 | XMS_ITS | Encounter Summary ---
:1985 Author Organization [facility] Address [address] [place] [address] Care Team Providers Name Role Phone Unavailable Primary Care Provider Unavailable Encounter Details Date Type Department Care Team Description 04/20/2016 Hospital Encounter HX NO MAPPING Nahun Tejeda M.D. [address] [place], [place] [phone] (Wo rk) Social History [...] How often do you attend taoist or moravian Never 07/04/2019 services? 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 [address] [phone] (Wo rk) Scheduled Procedures Name Priority Associated Diagnoses Date/Time LIFT THIGH Excessive And Redundant Skin And Subcutaneous Tissue documented as of this encounter Visit Diagnoses Not on filedocumented in this encounter Additional Health Concerns Assessment Noted Time PHQ-9 Depression Total Score: 13 06/14/2015 3:56 PM CD T documented as of this encounter
--- OUTSIDE RECORDS SUMMARY | 2022-07-25 09:15 | XMS_ITS | Encounter Summary ---
:1985 Author Organization [facility] Address [address] [place] [address] Care Team Providers Name Role Phone Unavailable Primary Care Provider Unavailable Encounter Details Date Type Department Care Team Description 07/27/2016 Hospital Encounter [facility]X [facility] Promise Rouse M.D. [address] [place], [place] [phone] (Wo rk) Social History [...] How often do you attend taoist or protestant Never 07/04/2019 services? 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 POWERCHART Document Id: [id number] Shar Tejeda M.D. - 07/27/2016 3:51 PM [...] TEJEDA MD On: 07/27/2016 03:52 PM Source: [facility] POWERCHART Document Id: [id number] documented in this encounter Nursing Notes Laverne Conti, L.P.N. - 07/27/2016 1:51 PM CDT Zika screening questions 1.) Have you or your partner traveled outside of [place] up to 6 months prior to this ? _Yes _xNo 2.) If so, where specifically have you or your partner traveled (Country, State)?_ 3.) If you or your partner have traveled to [place] since April_yes _no Where in [place] did you travel? _ Electronically Signed By: LAVERNE CONTI LPN On: 12/01/2016 04:00 PM Source: [facility] POWERCHART Document Id: [id number] BUILDER documented in this encounter Miscellaneous Notes Miscellaneous - Shar Tejeda M.D. - 07/27/2016 5:04 PM CDT Ambulatory Patient Summary [facility] [address] [place], [place] [phone] Visit Information Name: ALAN, NANCY ELIZABETH [facility] Number: [id number] Current Date: 07/27/2016 17:04:14 Physicians Attending Provider: SHAR TEJEDA MD Primary Care Provider: MAILE ZARATE MD ALANJOSEPHINENANCYNAILA JOHNSON has been given the following list [...] Date Time Location Provider 08/24/2016 13:30 OWOC CLAM DIGGER Shar Tejeda MD 08/25/2016 13:15 OWOC CLAM DIGGER Ileana RED, Shar Regalado 09/21/2016 08:40 OWOC Lab [facility] Lab 09/21/2016 09:15 OWOC CLAM DIGGER Ileana RED, Shar Regalado 10/05/2016 13:15 OWOC CLAM DIGGER Ileana RED, Shar Regalado 10/19/2016 13:15 OWOC CLAM DIGGER Ileana RED, Shar Regalado 11/02/2016 13:15 OWOC CLAM DIGGER Ileana RED, Shar Regalado 11/16/2016 13:15 OWOC CLAM DIGGER Ileana RED, Shar Regalado 11/23/2016 13:15 OWOC CLAM DIGGER Shar Tejeda MD 12/15/2016 11:15 OWOC CLAM DIGGER Ayanna Xie NP 01/12/2017 13:15 OWOC CLAM DIGGER Shar Tejeda MD Attention: Contact your local [...] if you dont have one. Go to [email or web address] and click on Create Your Account. Then, follow the directions to complete the online form. Youll be asked for your [facility] number which you can find at the top of this document. Your Goals/Additional instructions: Source: [facility] POWERCHART Document Id: [id number] Miscellaneous - Shar Tejeda M.D. - 07/27/2016 5:04 PM CDT Ambulatory Discharge Medication List [facility] [address] [place], [place] [phone] Visit Information Name: NANCY PHILILPS [facility] Number: [id number] Visit Date: 07/27/2016 17:04:14 Attending [...] MD Signed On:27-JUL-2016 17:04:12 Additional Information: Source: [facility] POWERCHART Document Id: [id number] Bunny - Laverne Conti, L.P.N. - 07/27/2016 1:46 PM CDT Adult Phlebotomy Lab Assistant Intake/History Adult Phlebotomy Lab Assistant Intake/History Entered On: 07/27/2016 13:50 CDT Performed On: 07/27/2016 13:46 CDT by LAVERNE CONTI SENIOR RISK ANALYST Intake Chief Complaint : 20 2/7 wk [...] Mass Index : 49.9 kg/m2 LAVERNE CONTI [facility] - 07/27/2016 13:46 CDT General Info Languages : Albanian Is Patient Female and 13-50 no hysterectomy : No LAVERNE CONTI [facility] - 07/27/2016 13:46 CDT Subjective Pain Symptoms : LAVERNE Holden [facility] - 07/27/2016 13:46 CDT Dependent Habits Exposure to Tobacco Smoke : Other: never Smoking Status : Never smoker Tobacco 2A : No Tobacco Use/Currently Using : No Tobacco Use/Last 30 Days : No Tobacco Use/Last 12 months : No LAVERNE CONTI [facility] - 07/27/2016 13:46 CDT Caffeine Use Grid Caffeine Use : Current Type : Soft drinks Frequency : Daily Amount : regular 1-2 cans daily LAVERNE CONTI [facility] - 07/27/2016 13:46 CDT Source: [employer] Document Id: [id number] CDT!31 documented in this encounter Plan of Treatment Upcoming Encounters Date Type Specialty Care Team Description 08/17/2022 Procedure visit Neurology Marina Winter M.D., M.P.H. [address] [place] [phone] (Wo rk) Scheduled Procedures Name Priority Associated Diagnoses Date/Time LIFT THIGH Excessive And Redundant Skin And Subcutaneous Tissue documented as of this encounter Visit Diagnoses Not on filedocumented in this encounter Additional Health Concerns Assessment Noted Time PHQ-9 Depression Total Score: 13 06/14/2015 3:56 PM CD T documented as of this encounter
--- OUTSIDE RECORDS SUMMARY | 2022-07-25 09:15 | XMS_ITS | Encounter Summary ---
:1985 Author Organization [facility] Address [address] [place] [address] Care Team Providers Name Role Phone Unavailable Primary Care Provider Unavailable Encounter Details Date Type Department Care Team Description 01/06/2016 Hospital Encounter [facility] Veronica Mccord M.D. [address] [place] [phone] (Wo rk) Social History Tobacco [...] How often do you attend samaritan or muslim Never 07/04/2019 services? 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 documented as of this encounter Last Filed Vital Signs Vital Sign Reading Time Taken Comments Blood Pressure 132/96 01/06/2016 7:09 PM POWER SYSTEM ENGINEER Pulse 94 01/06/2016 7:09 PM POWER SYSTEM ENGINEER Temperature - - Respiratory Rate 18 01/06/2016 7:09 PM POWER SYSTEM ENGINEER Oxygen Saturation - - Inhaled Oxygen Concentration - - Weight 136 kg (300 lb 11.3 oz) 01/06/2016 7:09 PM POWER SYSTEM ENGINEER Height 164 cm (5' 4.57) 01/06/2016 7:09 PM POWER SYSTEM ENGINEER Body Mass Index 50.71 01/06/2016 7:09 PM POWER SYSTEM ENGINEER documented in this encounter Progress Notes Juany Mccord M.D. - 01/06/2016 6:38 PM CST [id number] CHIEF COMPLAINT/REASON FOR VISIT A 30-year-old female, [...] MCCORD MD On: 01/09/2016 10:07 AM Source: [facility] MHSDOLBEYNONRADSYS Document Id: [id number] R SYSTEM ENGINEER documented in this encounter Miscellaneous Notes Miscellaneous - Juany Mccord M.D. - 01/06/2016 7:39 PM CST Ambulatory Patient Summary [facility] [address] [place], [place] [id number] Visit Information Name: NANCY PHILLIPS [facility] Number: [id number] Current Date: 01/06/2016 19:39:09 Physicians [...] if you dont have one. Go to [email or web address] and click on Create Your Account. Then, follow the directions to complete the online form. Youll be asked for your [facility] number which you can find at the top of this document. Your Goals/Additional instructions: Source: [facility] POWERCHART Document Id: [id number] R SYSTEM ENGINEER Miscellaneous - Junay Mccord M.D. - 01/06/2016 7:39 PM CST Ambulatory Discharge Medication List [facility] [address] [place] [id number] Visit Information Name: ALAN NANCY JOHNSON [facility] Number: [id number] Visit Date: 01/06/2016 19:39:07 Attending [...] By: JUANY MCCORD MD Signed On:06-JAN-2016 19:39:04 Additional Information: Source: [facility] POWERCHART Document Id: [id number] R SYSTEM ENGINEER Miscellaneous - Rocio Wolf, C.MRodrigoARodrigo - 01/06/2016 7:09 PM CST Adult Cell Tester Intake/History Adult Cell Tester Intake/History Entered On: 01/06/2016 19:17 POWER SYSTEM ENGINEER Performed On: 01/06/2016 19:09 POWER SYSTEM ENGINEER by ROCIO WOLF [facility] Intake Chief Complaint : hard time [...] 2.49 Body Mass Index : 50.71 kg/m2 ROCIO WOLF [facility] - 01/06/2016 19:09 POWER SYSTEM ENGINEER General Info Information Given By : Patient Languages : Bengali Is Patient Female and 13-50 no hysterectomy : Yes Status : Patient denies Are you ? : No ROCIO WOLF [facility] - 01/06/2016 19:09 POWER SYSTEM ENGINEER Subjective Pain Symptoms : Yes ROCIO WOLF [facility] - 01/06/2016 19:09 POWER SYSTEM ENGINEER Pain Scale Pain Scale Verbal 0-10 : Open ROCIO WOLF [facility] - 01/06/2016 19:09 POWER SYSTEM ENGINEER Pain Pain Assessment Grid Pain 1 Pain 2 Location : Chest Other: middle back Laterality : Other: middle Right Intensity : 3 4 ROCIO WOLF [facility] - 01/06/2016 19:09 POWER SYSTEM ENGINEER ROCIO WOLF [facility] - 01/06/2016 19:09CST Dependent Habits Exposure to Tobacco Smoke : Other: never Smoking Status : Never smoker Tobacco 2A : No Tobacco Use/Currently Using : No Tobacco Use/Last 30 Days : No Tobacco Use/Last 12 months : No ROCIO WOLF [facility] - 01/06/2016 19:09 POWER SYSTEM ENGINEER Caffeine Use Grid Caffeine Use : Current Type : Soft drinks Frequency : Daily ROCIO WOLF [facility] - 01/06/2016 19:09 POWER SYSTEM ENGINEER Source: [facility] InternationalCHART Document Id: [id number] POWER SYSTEM ENGINEER!51 R SYSTEM ENGINEER documented in this encounter Plan of Treatment Upcoming Encounters Date Type Specialty Care Team Description 08/17/2022 Procedure visit Neurology Marina Winter M.D., M.P.H. [address] [phone] (Wo rk) Scheduled Procedures Name Priority Associated Diagnoses Date/Time LIFT THIGH Excessive And Redundant Skin And Subcutaneous Tissue documented as of this encounter Visit Diagnoses Not on filedocumented in this encounter Additional Health Concerns Assessment Noted Time PHQ-9 Depression Total Score: 13 06/14/2015 3:56 PM CD T documented as of this encounter
--- OUTSIDE RECORDS SUMMARY | 2022-07-25 09:15 | XMS_ITS | Encounter Summary ---
:1985 Author Organization [facility] Address [address] [place] [address] Care Team Providers Name Role Phone Unavailable Primary Care Provider Unavailable Encounter Details Date Type Department Care Team Description 04/27/2016 Hospital Encounter HX [facility] Promise Rouse M.D. [address] [place], [place] [phone] (Wo rk) Social [...] How often do you attend baptism or religion Never 07/04/2019 services? 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 [address] [place] [phone] (Wo rk) Scheduled Procedures Name Priority [...] seven days in the fir st trimester. [facility] in [place] CLOUD SECURITY ARCHITECT Dept. [phone] Narrative 04/27/2016 3:46 PM CDT EXAM: US OB Transvaginal INDICATION: Dates, viability REFERRING PHYSICIAN: Dr. Tejeda COMPARISON: None LMP: 03/07/2016 NIMA by LMP: 12/12/2016 : 5 PARA: 3 NUMBER: One CARDIAC ACTIVITY: Yes HEART RATE: 140 beats per minute. GESTATIONAL SAC = N/A ??cm = N/A weeks a nd N/A days. Gestational sac is measured only if oneida n rump length (CRL) is not able [...] Visually normal, no adnexal mass es detected. WILDLIFE CONSERVATION OFFICER: Saige Clifford RDMS. Procedure Note Dona Villa [...] days. Gestational sac is measured only if oneida n rump length (CRL) is not able to be determined. Multiple measurements of the CRL reveal an average ultrasound age of 6 weeks and 5 days. See 'IMPRESSION' bel ow for ultrasound calculation of Estimated Date of Deliver y (NIMA). RIGHT OVARY: Unable to adequately image LEFT OVARY: Unable to adequately image UTERUS: Appears within normal limits. UTERINE POSITION: Anteverted. CUL DE SAC: Normal. ADNEXA: Visually normal, no adnexal mass es detected. WILDLIFE CONSERVATION OFFICER: Saige Clifford RDMS. IMPRESSION: 1. Single Viable Intrauterine with NIMA of 12/16/2016, consistent with menstrual dates. In general, it is reasonable to use the sonographically derived NIMA if it differs from that calculated using the last menstrual period (LMP) by more than seven days in the fir st trimester. [facility] in [place] CLOUD SECURITY ARCHITECT Dept. [phone] Saige Nick R.V.T., BrianneSRodrigo IMG OB US PROCEDUR ES documented in this encounter Visit Diagnoses Not on filedocumented in this encounter Additional Health Concerns Assessment Noted Time PHQ-9 Depression Total Score: 13 06/14/2015 3:56 PM CD T documented as of this encounter
--- OUTSIDE RECORDS SUMMARY | 2022-07-25 09:15 | XMS_ITS | Encounter Summary ---
:1985 Author Organization [facility] Address [address] [place] [address] Care Team Providers Name Role Phone Unavailable Primary Care Provider Unavailable Encounter Details Date Type Department Care Team Description 09/21/2016 Hospital Encounter HX [facility] Nahun Tejeda M.D. [address] [place], [place] [phone] (Wo rk) Social History [...] How often do you attend religion or mosque Never 07/04/2019 services? 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 [address] [place] [phone] (Wo rk) Scheduled Procedures Name Priority Associated Diagnoses Date/Time LIFT THIGH Excessive And Redundant Skin And Subcutaneous Tissue documented as of this encounter Procedures Procedure Name Priority Date/Time Associated Comments Diagnosis GLUCOSE, GESTATIONAL Routine 09/21/2016 9:42 AM R esults for this 1HR, S RN SURGERY procedure are i n the results section. HEMOGLOBIN, B Routine 09/21/2016 9:42 AM Results for this RN SURGERY procedure are i n the results section. documented in this encounter Results (ABNORMAL) Hemoglobin (09/21/2016 9:42 AM RN SURGERY) P athologist Signature Hemoglobin 11.7 (L) 12.0 - 15.5 POWERCHART GDL Specimen (Source) Anatomical Collection Method Collection Time Re ceived Time Location / / Volume Laterality Blood 09/21/2016 9:42 AM RN SURGERY Nahun Tejeda M.D. LAB BLOOD ADD-ON Performing Organization Address City/[facility]/ZIP Code Phon e Number POWERCHART (ABNORMAL) Glucose, Gestational 1HR (09/21/2016 9:42 AM RN SURGERY) P athologist Signature HXGlucose 1 Hr 162 (H) 70 - 139 POWERCHART OB MGDL Specimen (Source) Anatomical Collection Method Collection Time Re ceived Time Location / / Volume Laterality Blood 09/21/2016 9:42 AM RN SURGERY Nahun Tejeda M.D. LAB BLOOD ADD-ON Performing Organization Address City/State/ZIP Code Phon e Number POWERCHART documented in this encounter Visit Diagnoses Not on filedocumented in this encounter Additional Health Concerns Assessment Noted Time PHQ-9 Depression Total Score: 13 06/14/2015 3:56 PM CD T documented as of this encounter
--- OUTSIDE RECORDS SUMMARY | 2022-07-25 09:15 | XMS_ITS | Encounter Summary ---
:1985 Author Organization [facility] Address [address] [place] [address] Care Team Providers Name Role Phone Unavailable [...] How often do you attend yarsanism or restorationist Never 07/04/2019 services? 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 [address] [phone] (Wo rk) Scheduled Procedures Name Priority Associated Diagnoses Date/Time LIFT THIGH Excessive And Redundant Skin And Subcutaneous Tissue documented as of this encounter Visit Diagnoses Not on filedocumented in this encounter Additional Health Concerns Assessment Noted Time PHQ-9 Depression Total Score: 13 06/14/2015 3:56 PM CD T documented as of this encounter
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
--- OUTSIDE RECORDS SUMMARY | 2022-07-25 09:15 | XMS_ITS | Encounter Summary ---
:1985 Author Organization [facility] Address [address] [place] [address] Care Team Providers Name Role Phone Unavailable Primary Care Provider Unavailable Encounter Details Date Type Department Care Team Description 04/10/2016 Hospital Encounter HX [facility] INTERNMED Nelson Schneider P.A.-C. [address] [place] [phone] (Wo rk) Social History Tobacco Use Types [...] How often do you attend hinduism or yarsanism Never 07/04/2019 services? 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 She does utilize [facility] services. DIETARY SUPPLEMENTS: vitamins. ROUTINE PHYSICAL ACTIVITY: ADLs. LIMITATIONS: None. COMORBIDITIES: Per EMR. MEDICATIONS Reviewed EMR dated 04/10/2016. No changes. 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 MARITAL STATUS: She is . She [...] Healthy Eating and Managing Symptoms for - [facility] Reference. 2. Gestational Diabetes Basics from the [facility], it is a book. 3. My Food Plan for Gestational Diabetes from the [facility]. ADMINISTRATIVE BILLING Total counseling time spent today with patient is 60 minutes. Ansley Schneider R.D., Vane/pepe Electronically Signed By: ANSLEY SCHNEIDER On: 04/26/2016 10:31 AM Source: [facility] MHSDOLBEYNONRADSYS Document Id: [id number] documented in this encounter Miscellaneous Notes Miscellaneous - Ansley Schneider - 04/10/2016 8:49 AM CDT Ambulatory Patient Summary [address] [id number] Visit Information Name: ALAN, NANCY ELIZABETH [facility] Number: [id number] Current Date: 04/10/2016 08:49:32 Physicians [...] Date Time Location Provider 05/11/2016 10:30 [facility] MONOGRAM AND LETTER PASTER Ileana RED, Nahun Regalado Attention: Contact your [...] you dont have one. Go to [email or web address] and click on Create Your Account. Then, follow the directions to complete the online form. Youll be asked for your [facility] number which you can find at the top of this document. Your Goals/Additional instructions: Source: [facility] POWERCHART Document Id: [id number] Miscellaneous - Ansley Schneider - 04/10/2016 8:49 AM CDT Ambulatory Discharge Medication List [facility] [address] [place], [place] [id number] Visit Information Name: NANCY PHILLIPS [facility] Number: [id number] Visit Date: 04/10/2016 08:49:31 Attending [...] Additional Information: Source: [facility] POWERCHART Document Id: [id number] Miscellaneous - Ansley Schneider - 04/10/2016 8:44 AM CDT Adult Quality Intern Intake/History Adult Quality Intern Intake/History Entered On: 04/10/2016 8:47 CDT Performed [...] Information Given By : Patient Languages : Icelandic Is Patient Female and 13-50 no hysterectomy [...] ANSLEY SCHNEIDER - 04/10/2016 8:44 CDT Source: [facility] [employer] [employer] Document Id: [id number] CDT!27 documented in this encounter Plan of Treatment Upcoming Encounters Date Type Specialty Care Team Description 08/17/2022 Procedure visit Neurology Marina Winter M.D., M.P.H. [address] [place] [phone] (Wo rk) Scheduled Procedures Name Priority Associated Diagnoses Date/Time LIFT THIGH Excessive And Redundant Skin And Subcutaneous Tissue documented as of this encounter Visit Diagnoses Not on filedocumented in this encounter Additional Health Concerns Assessment Noted Time PHQ-9 Depression Total Score: 13 06/14/2015 3:56 PM CD T documented as of this encounter
--- OUTSIDE RECORDS SUMMARY | 2022-07-25 09:15 | XMS_ITS | Encounter Summary ---
:1985 Author Organization [facility] Address [address] [place] [address] Care Team Providers Name Role Phone Unavailable Primary Care Provider Unavailable Encounter Details Date Type Department Care Team Description 09/05/2016 Hospital Encounter HX [facility] Nancy Willson, ÁNGEL, C.N.P. [address] [place], [place] [phone] (Wo rk) Social History [...] often do you attend roman catholic or adventism Never 07/04/2019 services? 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 documented as of this encounter Last [...] 09/05/2016 11:03 AM CDT Ambulatory Patient Summary [facility] [address] [place], [place] [id number] Visit Information Name: NANCY PHILLIPS [facility] Number: [id number] Current Date: 09/05/2016 11:03:15 Physicians [...] [facility] Lab [facility] Lab 09/21/2016 09:15 [facility] FUNCTIONAL ANALYST Nahun Tejeda MD 10/05/2016 13:15 [facility] FUNCTIONAL ANALYST Ileana RED, Nahun Regalado 10/19/2016 13:15 [facility] FUNCTIONAL ANALYST Ileana RED, Nahun Regalado 11/02/2016 13:15 [facility] FUNCTIONAL ANALYST Ileana RED, Nahun Regalado 11/16/2016 13:15 [facility] FUNCTIONAL ANALYST Ileana RED, Nahun Regalado 11/23/2016 13:15 [facility] FUNCTIONAL ANALYST Ileana RED, Nahun Regalado 12/15/2016 11:15 [facility] FUNCTIONAL ANALYST Ayanna Xie NP 01/12/2017 13:15 [facility] FUNCTIONAL ANALYST Nahun Tejeda MD Attention: Contact your local [...] if you dont have one. Go to [email or web address] and click on Create Your Account. Then, follow the directions to complete the online form. Youll be asked for your [facility] number which you can find at the top of this document. Your Goals/Additional instructions: Source: [facility] POWERCHART Document Id: [id number] Miscellaneous - Nancy Keenan APRN, C.N.P. - 09/05/2016 11:03 AM CDT Ambulatory Discharge Medication List [facility] [address] [place] [id number] Visit Information Name: NANCY PHILLIPS [facility] Number: [id number] Current Date: 09/05/2016 11:03:15 Attending Provider: NANCY KEENAN APRN WOMEN'S ACTIVITIES ADVISER Primary Care Provider: MAILE ZARATE MD NANCY [...] emergency. Electronically Signed By: NANCY KEENAN APRN [facility] Signed On:05-SEP-2016 11:03:13 Additional Information: Source: [facility] POWERCHART Document Id: [id number] Miscellaneous - Lia Mccarty LRodrigoPRodrigoN. - 09/05/2016 10:09 AM CDT Adult Malted Milk Masher Intake/History Adult Malted Milk Masher Intake/History Entered On: 09/05/2016 10:13 CDT Performed On: 09/05/2016 10:09 CDT by LIA MCCARTY VENETIAN BLIND ASSEMBLER Intake Chief Complaint : ob check in labor and delivery stated bp was elevated and was told there was bloodin her urine. LMP Date : 03-07-2016 Ambulatory Intake Additional Information : zika (Comment: Zika screening questions1.) Have you or your partner traveled outside of [place] up to 6 monthsprior to this ? yes2.) If so, where specifically have you or your partner traveled (Country, State)?[place]3.) If you or your partner have traveled to [place] since April? No Where in [place] did you travel? _ [LIA MCCARTY LPN [...] Information Given By : Patient Languages : Chinese Is Patient Female and [...] MCCARTY LPN - 09/05/2016 10:09 CDT Source: [employer] POWERCHART Document Id: [id number] CDT!40 documented in this encounter Plan of Treatment Upcoming Encounters Date Type Specialty Care Team Description 08/17/2022 Procedure visit Neurology Marina Winter M.D., M.P.H. [address] [phone] (Wo rk) Scheduled Procedures Name Priority Associated Diagnoses Date/Time LIFT THIGH Excessive And Redundant Skin And Subcutaneous Tissue documented as of this encounter Visit Diagnoses Not on filedocumented in this encounter Additional Health Concerns Assessment Noted Time PHQ-9 Depression Total Score: 13 06/14/2015 3:56 PM CD T documented as of this encounter
--- OUTSIDE RECORDS SUMMARY | 2022-07-25 09:15 | XMS_ITS | Encounter Summary ---
:1985 Author Organization [facility] Address [address] [place] [address] Care Team Providers Name Role Phone Unavailable [...] How often do you attend baptist or caodaism Never 07/04/2019 services? 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 [address] [phone] (Wo rk) Scheduled Procedures Name Priority Associated Diagnoses Date/Time LIFT THIGH Excessive And Redundant Skin And Subcutaneous Tissue documented as of this encounter Visit Diagnoses Not on filedocumented in this encounter Additional Health Concerns Assessment Noted Time PHQ-9 Depression Total Score: 13 06/14/2015 3:56 PM CD T documented as of this encounter
--- OUTSIDE RECORDS SUMMARY | 2022-07-25 09:15 | XMS_ITS | Encounter Summary ---
:1985 Author Organization [facility] Address [address] [place] [address] Care Team Providers Name Role Phone Unavailable [...] How often do you attend anglican or synagogue Never 07/04/2019 services? 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 - 04/17/2016 3:56 PM CDT [id number] CHIEF COMPLAINT/REASON FOR VISIT Cough. HISTORY OF [...] BANGURA MD On: 04/18/2016 04:03 PM Source: [facility] MHSDOLBEYNONRADSYS Document Id: [id number] documented in this encounter Miscellaneous Notes Miscellaneous - Pierre Bangura M.D. - 04/17/2016 4:33 PM CDT Ambulatory Patient Summary [place] [id number] Visit Information Name: NANCY PHILLIPS [facility] Number: [id number] Current Date: 04/17/2016 16:33:17 Physicians [...] directed x 5 day(s) New Routed to [facility] [address] [place] [address] multivitamin, ( Multivitamins) 1 TAB, Oral, once [...] Date Time Location Provider 05/11/2016 10:30 [facility] PRINT PRESS OPERATOR Nahun Tejeda MD 05/29/2016 12:30 [facility] InternMed [...] online form. Youll be asked for your [facility] number which you can find at the top of this document. Your Goals/Additional instructions: Source: [facility] POWERCHART Document Id: [id number] Miscellaneous - Pierre Bangura M.D. - 04/17/2016 4:33 PM CDT Ambulatory Discharge Medication List [address] [id number] Visit Information Name: NANCY PHILLIPS [facility] Number: [id number] Visit Date: 04/17/2016 16:33:17 Attending [...] directed x 5 day(s) New Routed to [facility] [address] [place] [address] multivitamin, ( Multivitamins) 1 TAB, Oral, once [...] MD Signed On:17-APR-2016 16:33:15 Additional Information: Source: [facility] POWERCHART Document Id: [id number] Miscellaneous - Tammi Hernandez L.P.N. 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 [address] [phone] (Wo rk) Scheduled Procedures Name Priority Associated Diagnoses Date/Time LIFT THIGH Excessive And Redundant Skin And Subcutaneous Tissue documented as of this encounter Visit Diagnoses Not on filedocumented in this encounter Additional Health Concerns Assessment Noted Time PHQ-9 Depression Total Score: 06/14/2015 3:56 PM CD T documented as of this encounter
--- OUTSIDE RECORDS SUMMARY | 2022-07-25 09:15 | XMS_ITS | Encounter Summary ---
:1985 Author Organization [facility] Address [address] [place] [address] Care Team Providers Name Role Phone Unavailable Primary Care Provider Unavailable Encounter Details Date Type Department Care Team Description 07/27/2016 Hospital Encounter HX [facility] Promise Rouse M.D. [address] [place], [place] [phone] (Wo rk) Social History [...] How often do you attend zoroastrian or catholic Never 07/04/2019 services? 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 [address] [place] [phone] (Wo rk) Scheduled Procedures Name Priority [...] aneuploidy, as well as congenital heart defects. [facility] CLERGY MEMBER Dept. [phone] Narrative 07/27/2016 3:56 PM CDT EXAM: US OB Greater than 14 weeks INDICATION: Survey REFERRING PHYSICIAN: Ileana LEAD MAINTENANCE TECHNICIAN: Saige Clifford RDMS. : 5 ?? PARA: [...] 14 weeks INDICATION: Survey REFERRING PHYSICIAN: Ileana LEAD MAINTENANCE TECHNICIAN: Saige Clifford RDMS. : 5 PARA: 3 [...] aneuploidy, as well as congenital heart defects. [facility] CLERGY MEMBER Dept. [phone] Saige Nick R.V.T., RJuanS. IMG OB US GAMA ES documented in this encounter Visit Diagnoses Not on filedocumented in this encounter Additional Health Concerns Assessment Noted Time PHQ-9 Depression Total Score: 13 06/14/2015 3:56 PM CD T documented as of this encounter
--- OUTSIDE RECORDS SUMMARY | 2022-07-25 09:15 | XMS_ITS | Encounter Summary ---
:1985 Author Organization [facility] Address [address] [place] [address] Care Team Providers Name Role Phone Unavailable Primary Care Provider Unavailable Encounter Details Date Type Department Care Team Description 08/24/2016 Hospital Encounter HX [facility] Promise Rouse M.D. [address] [place], [place] [phone] (Wo rk) Social History [...] How often do you attend adventist or bahai Never 07/04/2019 services? 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 POWERCHART Document Id: [id number] documented in this encounter Miscellaneous Notes Miscellaneous - Shar Tejeda M.D. - 08/24/2016 1:55 PM CDT Ambulatory Patient Summary [place] [facility] [address] [place] [id number] Visit Information Name: NANCY PHILLIPS [facility] Number: [id number] Current Date: 08/24/2016 13:55:01 Physicians [...] [facility] Lab [facility] Lab 09/21/2016 09:15 [facility] SENIOR PRODUCER Shar Tejeda MD 10/05/2016 13:15 [facility] SENIOR PRODUCER Ileana RED, Shar Regalado 10/19/2016 13:15 [facility] SENIOR PRODUCER Shar Tejeda MD 11/02/2016 13:15 [facility] SENIOR PRODUCER hSar Tejeda MD 11/16/2016 13:15 [facility] SENIOR PRODUCER Shar Tejeda MD 11/23/2016 13:15 [facility] SENIOR PRODUCER Shar Tejeda MD 12/15/2016 11:15 [facility] SENIOR PRODUCER Ayanna Xie NP 01/12/2017 13:15 [facility] SENIOR PRODUCER Shar Tejeda MD Attention: Contact your local [...] for your [facility] number which you can find at the top of this document. Your Goals/Additional instructions: Source: [facility] POWERCHART Document Id: [id number] Miscellaneous - Shar Tejeda M.D. - 08/24/2016 1:55 PM CDT Ambulatory Discharge Medication List [facility] [address] [place], [place] [id number] Visit Information Name: NANCY PHILLIPS [facility] Number: [id number] Current Date: 08/24/2016 13:55:01 Attending [...] MD Signed On:24-AUG-2016 13:54:56 Additional Information: Source: [facility] POWERCHART Document Id: [id number] Miscellaneous - Chinyere Espinal, L.P.N. - 08/24/2016 1:36 PM CDT Adult Lace Cutter Intake/History Adult Lace Cutter Intake/History Entered On: 08/24/2016 13:41 CDT Performed On: 08/24/2016 13:36 CDT by CHINYERE ESPINAL LPN Intake Chief Complaint : OB check 24 weeks and 2 days Ambulatory Intake Additional Information : Zika. Pt c/o pressure and imer kelly. (Comment: Zika screening questions1.) Have you or your partner traveled outside of [place] up to 6 monthsprior to this ? Yes-partner 2.) If so, where specifically have you or your partner traveled(Country, State)? [place]3.) If you or your partner have traveled to [place] since April? No Where in [place] did you travel? _N/A [CHINYERE ESPINAL LPN [...] Information Given By : Patient Languages : Kyrgyz Is Patient Female and 13-50 no hysterectomy [...] ESPINAL LPN - 08/24/2016 13:36 CDT [facility] Document Id: [id number]![id number] documented in this encounter Plan of Treatment Upcoming Encounters Date Type Specialty Care Team Description 08/17/2022 Procedure visit Neurology Marina Winter M.D., M.P.H. [address] [phone] (Wo rk) Scheduled Procedures [...] Complete, Includes Microscopic (08/24/2016 3:05 PM CDT) [facility] Method Time Signature HXUR WBC. 4-10 None [...] (A) Negative POWERCHART Specific >=1.030 (A) POWERCHART [place], POCT, U Comment: Reference Range Specific [place]: 1.000-1.035 pH, POCT, Urine 5.5 POWERCHART Comment: [...]
--- OUTSIDE RECORDS SUMMARY | 2022-07-25 09:15 | XMS_ITS | Encounter Summary ---
:1985 Author Organization [facility] Address [address] [place] [address] Care Team Providers Name Role Phone Unavailable Primary Care Provider Unavailable Encounter Details Date Type Department Care Team Description 12/19/2015 Hospital Encounter HX NO MAPPING Ajit Duncan M.D. [address] [place], [place] [phone] (Wo rk) Social History [...] How often do you attend amish or jain Never 07/04/2019 services? 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 [address] [place] [phone] (Wo rk) Scheduled Procedures Name Priority Associated Diagnoses Date/Time LIFT THIGH Excessive And Redundant Skin And Subcutaneous Tissue documented as of this encounter Procedures Procedure Name Priority Date/Time Associated Diagnosis Comme nts DX CHEST AP OR PA Routine 12/19/2015 7:36 PM Resu lts for this AND LATERAL 2 VIEWS BOMB LOADER procedur e are in the results section. documented in this encounter Results DX Chest Anterior Posterior or Posterior Anterior and Lateral 2 Views (12/19/2015 7:36 PM BOMB LOADER) Anatomical Region Laterality Modality Chest N/A Radiographic Imaging Specimen (Source) Anatomical Collection Method Collection Time Re ceived Time Location / / Volume Laterality 12/19/2015 7:36 PM BOMB LOADER Addenda Addendum by ProviderJosh M.D. o jerson 12/19/2015 7:36 PM BOMB LOADER RAD^^^OW XR Chest 2 Views 12/19/2015 19:36:52 Impressions 12/20/2015 8:51 AM BOMB LOADER Negative. Narrative 12/20/2015 8:51 AM BOMB LOADER EXAM: XR Chest 2 Views INDICATION: cough, [...]
--- OUTSIDE RECORDS SUMMARY | 2022-07-25 09:15 | XMS_ITS | Encounter Summary ---
:1985 Author Organization [facility] Address [address] [place] [address] Care Team Providers Name Role Phone Unavailable Primary Care Provider Unavailable Encounter Details Date Type Department Care Team Description 10/13/2016 Hospital Encounter HX NO MAPPING Eva Booth M.D. [address] [place], [place] [phone] (Wo rk) Social History [...] How often do you attend bahai or taoist Never 07/04/2019 services? 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 [address] [phone] (Wo rk) Scheduled Procedures Name Priority Associated Diagnoses Date/Time LIFT THIGH Excessive And Redundant Skin And Subcutaneous Tissue documented as of this encounter Visit Diagnoses Not on filedocumented in this encounter Additional Health Concerns Assessment Noted Time PHQ-9 Depression Total Score: 13 06/14/2015 3:56 PM CD T documented as of this encounter
--- OUTSIDE RECORDS SUMMARY | 2022-07-25 09:15 | XMS_ITS | Encounter Summary ---
:1985 Author Organization [facility] Address [address] [place] [address] Care Team Providers Name Role Phone Unavailable Primary Care Provider Unavailable Encounter Details Date Type Department Care Team Description 04/07/2016 Hospital Encounter HX NO MAPPING Nahun Tejeda M.D. [address] [place], [place] [phone] (Wo rk) Social History [...] How often do you attend hinduism or moravian Never 07/04/2019 services? 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 Document Id: [id number] documented in this encounter Plan of Treatment Upcoming Encounters Date Type Specialty Care Team Description 08/17/2022 Procedure visit Neurology Marina Winter M.D., M.P.H. [address] [phone] (Wo rk) Scheduled Procedures Name Priority Associated Diagnoses Date/Time LIFT THIGH Excessive And Redundant Skin And Subcutaneous Tissue documented as of this encounter Visit Diagnoses Not on filedocumented in this encounter Additional Health Concerns Assessment Noted Time PHQ-9 Depression Total Score: 13 06/14/2015 3:56 PM CD T documented as of this encounter
[2022-07-25 09:16] LABS: Slide Review Reflex No
--- OUTSIDE RECORDS SUMMARY | 2022-07-25 09:16 | XMS_ITS | Encounter Summary ---
:1985 Author Organization [facility] Address [address] [place] [address] Care Team Providers Name Role Phone Unavailable [...] How often do you attend congregation or amish Never 07/04/2019 services? 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 PROJECT MANAGER documented as of this encounter Last Filed Vital Signs Vital Sign Reading Time Taken Comments Blood Pressure 128/88 10/18/2015 10:37 AM INTERNET PROJECT MANAGER Pulse 84 10/18/2015 10:37 AM INTERNET PROJECT MANAGER Temperature - - Respiratory Rate 18 10/18/2015 10:37 AM INTERNET PROJECT MANAGER Oxygen Saturation - - Inhaled Oxygen Concentration - - Weight 136 kg (298 lb 15.1 oz) 10/18/2015 10:37 AM INTERNET PROJECT MANAGER Height 164 cm (5' 4.57) 10/18/2015 10:12 AM INTERNET PROJECT MANAGER Body Mass Index 50.42 10/18/2015 10:12 AM INTERNET PROJECT MANAGER documented in this encounter Progress Notes Pierre Bangura M.D. - 10/18/2015 10:11 AM CST [id number] CHIEF COMPLAINT/REASON FOR VISIT test, STD screening. [...] BANGURA MD On: 10/18/2015 05:23 PM [facility] Document Id: [id number] RNET PROJECT MANAGER documented in this encounter Miscellaneous Notes Erickacellaneous - Pierre Bangura M.D. - 10/20/2015 8:35 AM CST From: PIERRE BANGURA MD To: NANCY PHILLIPS Sent: 10/20/2015 08:35:49 INTERNET PROJECT MANAGER I am pleased to report that your results from the following diagnostic test(s) are normal hepatitis c screen. If you have questions or concerns, please do not hesitate to call our office. Results: Date Result Name Value Ref Range 10/18/2015 11:43 HepC RNA PCR [facility] Undetected IntU/ml (Undetected - ) Source: [facility] POWERCHART Document Id: [id number] Electronically signed by [facility] R [facility] Collateral Clerk [id number] at 04/02/2017 5:51 PM CDT Erickacellaneous - Pierre Bangura M.D. - 10/19/2015 9:00 PM CST From: PIERRE BANGURA MD To: NANCY PHILLIPS Sent: 10/19/2015 21:00:27 INTERNET PROJECT MANAGER I am pleased to report that your results from the following diagnostic test(s) are normal - gonorrhea and chlamydia. If you have questions or concerns, please do not hesitate to call our office. Source: [facility] Plurchase Document Id: [id number] Electronically signed by Conversion, [facility] Collateral Clerk [id number] at 04/02/2017 5:51 PM CDT Pierre Shea M.D. - 10/19/2015 8:57 PM CST From: PIERRE BANGURA MD To: NANCY PHILLIPS Sent: 10/19/2015 20:57:15 INTERNET PROJECT MANAGER I am pleased to report that your results from the following diagnostic test(s) are normal - urine culture. If you have questions or concerns, please do not hesitate to call our office. Source: [employer] Document Id: [id number] Electronically signed by Conversion, [facility] Collateral Clerk [id number] at 04/02/2017 5:51 PM CDT Pierre Shea M.D. - 10/19/2015 9:04 AM CST From: PIERRE BANGURA MD To: NANCY PHILLIPS Sent: 10/19/2015 09:04:41 INTERNET PROJECT MANAGER I am pleased to report that your results from the following diagnostic test(s) are normal. If you have questions or concerns, please do not hesitate to call our office. Results: Date Result Name Value Ref Range 10/18/2015 11:43 HIV 1/2 Ab and Ag [facility] Negative (Negative - ) Source: [facility] Plurchase Document Id: [id number] Electronically signed by Conversion, [facility] Collateral Clerk [id number] at 04/02/2017 5:51 PM CDT Pierre Shea M.D. - 10/19/2015 8:01 AM CST From: PIERRE BANGURA MD To: NANCY PHILLIPS Sent: 10/19/2015 08:01:11 INTERNET PROJECT MANAGER I am pleased to report that your results from the following diagnostic test(s) are normal. If you have questions or concerns, please do not hesitate to call our office. Results: Date Result Name Value 10/18/2015 11:43 Hep Bs Ag Interp Negative Source: [facility] POWERCHART Document Id: [id number] Electronically signed by Conversion, [facility] Collateral Clerk [id number] at 04/02/2017 5:51 PM CDT Pierre Shea M.D. - 10/18/2015 1:46 PM CST From: PIERRE BANGURA MD ( Same Day Provider) To: NANCY PHILLIPS Sent: 10/18/2015 13:46:35 INTERNET PROJECT MANAGER I am pleased to report that your results from the following diagnostic test(s) are normal - right hand x ray. If you have questions or concerns, please do not hesitate to call our office. Source: [facility] FlowMetricCHART Document Id: [id number] Electronically signed by Conversion, [facility] Collateral Clerk [id number] at 04/02/2017 5:51 PM CDT Pierre Shea M.D. - 10/18/2015 10:57 AM CST Ambulatory Patient Summary [facility] [address] [place], [place] [id number] Visit Information Name: NANCY PHILLIPS [facility] Number: [id number] Current Date: 10/18/2015 10:57:49 Physicians [...] if you dont have one. Go to [email or web address] and click on Create Your Account. Then, follow the directions to complete the online form. Youll be asked for your [facility] number which you can find at the top of this document. Your Goals/Additional instructions: Source: [facility] Plurchase Document Id: [id number] RNET PROJECT MANAGER Miscellaneous - Pierre Bangura M.D. - 10/18/2015 10:57 AM CST Ambulatory Discharge Medication List [facility] [address] [place] [phone] Visit Information Name: NANCY PHILLIPS [facility] Number: [id number] Visit Date: 10/18/2015 10:57:47 Attending [...] MD Signed On:18-OCT-2015 10:57:43 Additional Information: Source: [facility] POWERCHART Document Id: [id number] RNET PROJECT MANAGER Miscellaneous - Mago Giordano RRodrigoNRodrigo - 10/18/2015 10:37 AM CST Adult Correctional Officer Intake/History Adult Correctional Officer Intake/History Entered On: 10/18/2015 10:40 INTERNET PROJECT MANAGER Performed On: 10/18/2015 10:37 INTERNET PROJECT MANAGER by MAGO GIORDANO LPN Intake Chief Complaint [...] kg MAGO GIORDANO LPN - 10/18/2015 10:37 INTERNET PROJECT MANAGER General Info Information Given By : Patient Preferred Communication Mode : Verbal Languages : Maltese Is Patient Female and 13-50 no hysterectomy : Yes Status : Possible unconfirmed Are you ? : No MODESTO GIORDANOJUAN Olguin [facility] - 10/18/2015 10:37 INTERNET PROJECT MANAGER Subjective Pain Symptoms : No MODESTO GIORDANOJUAN Olguin [facility] - 10/18/2015 10:37 INTERNET PROJECT MANAGER Dependent Habits Exposure to Tobacco Smoke : Other: never Smoking Status : Never smoker Tobacco 2A : No MODESTO GIORDANOJUAN Olguin [facility] - 10/18/2015 10:37 INTERNET PROJECT MANAGER Caffeine Use Grid Caffeine Use : Current Type : Soft drinks Frequency : Daily CHRISTIANASHANNA HIGGINSIANJUAN Olguin [facility] - 10/18/2015 10:37 INTERNET PROJECT MANAGER Source: [facility] FlowMetricCHART Document Id: [id number] INTERNET PROJECT MANAGER!36 RNET PROJECT MANAGER documented in this encounter Plan of Treatment Upcoming Encounters Date Type Specialty Care Team Description 08/17/2022 Procedure visit Neurology Marina Winter M.D., M.P.H. [address] [place] [address] [phone] (Wo rk) Scheduled Procedures Name Priority Associated Diagnoses Date/Time LIFT THIGH Excessive And Redundant Skin And Subcutaneous Tissue documented as of this encounter Procedures Procedure Name Priority Date/Time Associated Comments Diagnosis BACTERIAL CULTURE, Routine 10/18/2015 4:18 PM Res ults for this AEROBIC, URINE INTERNET PROJECT MANAGER procedure are in the results section. DX HAND RIGHT 3+ Routine 10/18/2015 11:51 Results for this VIEWS AM INTERNET PROJECT MANAGER procedure are i n the results section. HIV-1/-2 AG AND AB Routine 10/18/2015 11:43 Resul ts for this SCREEN AM INTERNET PROJECT MANAGER procedure are i n the results section. HCV RNA DETECT/QUANT Routine 10/18/2015 11:43 Res ults for this AM INTERNET PROJECT MANAGER procedure are i n the results section. AUTOMATED Routine 10/18/2015 11:43 Results for this DIFFERENTIAL, B AM INTERNET PROJECT MANAGER procedure ar e in the results section. HEPATITIS B SURFACE Routine 10/18/2015 11:43 Resu lts for this ANTIGEN AM INTERNET PROJECT MANAGER procedure are i n the results section. CBC WITH Routine 10/18/2015 11:43 Results for this DIFFERENTIAL, B AM INTERNET PROJECT MANAGER procedure ar e in the results section. C-REACTIVE PROTEIN Routine 10/18/2015 11:43 Resul ts for this (CRP), S/P AM INTERNET PROJECT MANAGER procedure are i n the results section. WET PREP EXAM, Routine 10/18/2015 11:30 Results f or this UROGENITAL AM INTERNET PROJECT MANAGER procedure are i n the results section. HXUR % DYSMORPHIC RBC Routine 10/18/2015 11:26 Re sults for this AM INTERNET PROJECT MANAGER procedure are i n the results section. URINALYSIS, ROUTINE Routine 10/18/2015 11:26 Resu lts for this AM INTERNET PROJECT MANAGER procedure are i n the results section. URINE MICROSCOPIC Routine 10/18/2015 11:26 Result s for this AM INTERNET PROJECT MANAGER procedure are i n the results section. CHLAMYDIA/GONORRHOEAE Routine 10/18/2015 11:23 Re sults for this AMPLIFIED RNA AM INTERNET PROJECT MANAGER procedure are in the results section. CHLAMYDIA TRACHOMATIS Routine 10/18/2015 11:23 Re sults for this AMPLIFIED RNA AM INTERNET PROJECT MANAGER procedure are in the results section. TEST, U Routine 10/18/2015 11:20 Result s for this AM INTERNET PROJECT MANAGER procedure are i n the results section. documented in this encounter Results Bacterial Culture, Aerobic, Urine (10/18/2015 4:18 PM INTERNET PROJECT MANAGER) [facility] Method Time Signature Bacterial POWERCHART Culture, Aerobic, Urine [facility] Mixed carmelo. No POWERCHART further studies unless notified. [facility] POWERCHART Microbiology laboratory [phone]. Specimen (Source) Anatomical Collection Method Collection Time Re ceived Time Location / / Volume Laterality Urine, First 10/18/2015 4:18 PM Voided INTERNET PROJECT MANAGER Pierre Bangura M.D. LAB MICROBIOLOGY - GENERAL O RDERABLES Performing Organization Address City/State/ZIP Code Phon e Number POWERCHART DX Hand Right 3+ Views (10/18/2015 11:51 AM INTERNET PROJECT MANAGER) Anatomical Region Laterality Modality Upper Extremity, Hand Right Radiographic Imagi ng Specimen (Source) Anatomical Collection Method Collection Time Re ceived Time Location / / Volume Laterality 10/18/2015 11:51 AM INTERNET PROJECT MANAGER Addenda Addendum by Provider, Ella Moreno 10/18/2015 11:51 AM INTERNET PROJECT MANAGER RAD^^^OW XR Hand Right 3 or more views 10/18/2015 11:51:55 Impressions 10/18/2015 12:16 PM INTERNET PROJECT MANAGER Negative. Narrative 10/18/2015 12:16 PM INTERNET PROJECT MANAGER EXAM: XR Hand Right 3 or more [...] AGING PROCEDURES Automated Differential (10/18/2015 11:43 AM INTERNET PROJECT MANAGER) athologist Signature Absolute 5.18 1.70 - POWERCHART Neutrophils 7.00 109L Lymphocytes 2.52 0.90 - POWERCHART 2.90 X109L Monocytes 0.62 0.30 - POWERCHART 0.90 X109L Eosinophils 0.13 0.05 - POWERCHART 0.50 X109L Absolute 0.01 0.00 - POWERCHART Basophil 0.30 X109L Specimen Anatomical Collection Method Collection Time Receive d Time (Source) Location / / Volume Laterality Blood 10/18/2015 11:43 10/18/2015 AM INTERNET PROJECT MANAGER 11:43 AM INTERNET PROJECT MANAGER Pierre Bangura M.D. LAB BLOOD ADD-ON Performing Organization Address City/State/ZIP Code Phon e Number POWERCHART CBC with Differential (10/18/2015 11:43 AM INTERNET PROJECT MANAGER) athologist Signature Leukocytes 8.5 3.4 - 10.5 POWERCHART X109L Erythrocytes 4.97 3.90 - 5.03 POWERCHART Q8063N Hemoglobin 14.3 12.0 - 15.5 POWERCHART GDL Hematocrit 43.0 34.9 - 44.5 POWERCHART MCV 86.5 82.0 - 98.0 POWERCHART FL HX RDW 13.2 11.9 - 15.5 POWERCHART Platelet Count 286 150 - 450 POWERCHART X109L Specimen (Source) Anatomical Collection Method Collection Time Re ceived Time Location / / Volume Laterality Blood 10/18/2015 11:43 AM INTERNET PROJECT MANAGER Pierre Bangura M.D. LAB BLOOD ADD-ON Performing Organization Address City/[facility]/ZIP Code Phon e Number POWERCHART (ABNORMAL) CRP (C-Reactive Protein) (10/18/2015 11:43 AM INTERNET PROJECT MANAGER) P athologist Signature C-Reactive 6.7 (H) <=5.0 MGL POWERCHART Protein (CRP), S Specimen (Source) Anatomical Collection Method Collection Time Re ceived Time Location / / Volume Laterality Blood 10/18/2015 11:43 AM INTERNET PROJECT MANAGER Pierre Bangura M.D. LAB BLOOD ADD-ON Performing Organization Address [facility] Code Phon e Number POWERCHART HCV RNA Detect / Quant (10/18/2015 11:43 AM INTERNET PROJECT MANAGER) Patholo gist Method Time Signature HCV RNA Undetected Undetected POWERCHART Detect/Quant, INTUML S Comment: Result in log IU/mL is Undetected. ADDITIONAL INFORMATIO N The quantification range of this assay i s 15 to 100,000,000 IU/mL (1.18 log to 8.00 log IU/mL). Test ing was performed by the [employer] AmpliPrep/NATALIE TaqMan HCV Test, version 2.0 ([employer] Test Performed by: [place] [address] Conference Center Manager: Hardik Burroughs II, M.D., Ph.D. Specimen (Source) Anatomical Collection Method Collection Time Re ceived Time Location / / Volume Laterality Blood 10/18/2015 11:43 AM INTERNET PROJECT MANAGER Pierre Bangura M.D. LAB MICROBIOLOGY - BLOOD ORD ERABLES Performing Organization Address City/[facility]/ZIP Code Phon e Number POWERCHART Hepatitis B Surface Antigen (10/18/2015 11:43 AM INTERNET PROJECT MANAGER) Analysis Performed At Patho logist Time Signature Interpretation Negative POWERCHART Specimen (Source) Anatomical Collection Method Collection Time Re ceived Time Location / / Volume Laterality Blood 10/18/2015 11:43 AM INTERNET PROJECT MANAGER Pierre Bangura M.D. LAB MICROBIOLOGY - BLOOD ORD ERABLES Performing Organization Address City/[facility]/ZIP Code Phon e Number POWERCHART HIV-1/-2 Ag and Ab Screen (10/18/2015 11:43 AM INTERNET PROJECT MANAGER) athologist Signature HIV-1/-2 Negative Negative POWERCHART Antibody Comment: Negative result does not rule out HIV in fection. If acute HIV infection is suspected in a hi gh-risk individual, submit plasma specimen for H IV-1 RNA quantification test (HIVDQ) and/or HIV-2 DNA/RNA test (FHV2Q). Test Performed by: [place] [address] Conference Center Manager: Hardik Burroughs II, M.D., Ph.D. Specimen (Source) Anatomical Collection Method Collection Time Re ceived Time Location / / Volume Laterality Blood 10/18/2015 11:43 AM INTERNET PROJECT MANAGER Pierre Bangura M.D. LAB MICROBIOLOGY - BLOOD ORD ERABLES Performing Organization Address [facility] Code Phon e Number POWERCHART Wet Prep Exam, Urogenital (10/18/2015 11:30 AM INTERNET PROJECT MANAGER) athologist Signature HXWet Prep POWERCHART HXFinal No yeast, POWERCHART Trichomonas , clue cells, or sperm seen. Specimen (Source) Anatomical Collection Method Collection Time Re ceived Time Location / / Volume Laterality Vagina 10/18/2015 11:30 AM INTERNET PROJECT MANAGER Pierre Bangura M.D. LAB MICROBIOLOGY - GENERAL O RDERABLES Performing Organization Address City/[facility]/ZIP Code Phon e Number POWERCHART HXUR % DYSMORPHIC RBC (10/18/2015 11:26 AM INTERNET PROJECT MANAGER) athologist Signature Dysmorphic RBC <=25 <=25 POWERCHART Specimen Anatomical Collection Method Collection Time Receive d Time (Source) Location / / Volume Laterality Urine, First 10/18/2015 11:26 10/18/2015 Voided AM INTERNET PROJECT MANAGER 11:26 AM INTERNET PROJECT MANAGER Pierre Bangura M.D. LAB HISTORICAL ORDERS Performing Organization Address City/[facility]/ZIP Code Phon e Number POWERCHART (ABNORMAL) Urine Microscopic (10/18/2015 11:26 AM INTERNET PROJECT MANAGER) [facility] Method Time Signature HXUR WBC. 11-20 (A) None Seen POWERCHART HPF HXUR RBC. 3-10 (A) None Seen POWERCHART HPF HXUR Bacteria, Present (A) None Seen POWERCHART Squamous 31-40 (A) None Seen POWERCHART Epithelial HPF Specimen Anatomical Collection Method Collection Time Receive d Time (Source) Location / / Volume Laterality Urine, First 10/18/2015 11:26 10/18/2015 Voided AM INTERNET PROJECT MANAGER 11:26 AM INTERNET PROJECT MANAGER Pierre Bangura M.D. LAB URINE ORDERABLES Performing Organization Address City/[facility]/ZIP Code Phon e Number POWERCHART (ABNORMAL) Urinalysis, Routine (10/18/2015 11:26 AM INTERNET PROJECT MANAGER) [facility] Method Time Signature HXUr Color Yellow Colorless POWERCHART Clarity Slightly Clear POWERCHART Cloudy (A) Glucose Negative Negative POWERCHART MGDL HXBILIRUBIN Negative Negative POWERCHART Ketones, QL(U) Negative Negative POWERCHART MGDL Specific 1.020 POWERCHART Hersey, POCT, U pH, POCT, Urine 5.0 POWERCHART Protein, Ur, Negative Negative POWERCHART Dip MGDL Urobilinogen 0.2 0.2 MGDL POWERCHART HXNITRITE Negative Negative POWERCHART HXBLOOD Small (A) Negative POWERCHART Leukocyte Small (A) Negative POWERCHART Esterase Specimen (Source) Anatomical Collection Method Collection Time Re ceived Time Location / / Volume Laterality Urine, First 10/18/2015 11:26 Voided AM INTERNET PROJECT MANAGER Pierre Bangura M.D. LAB URINE ORDERABLES Performing Organization Address City/State/ZIP Code Phon e Number POWERCHART Chlamydia / Gonorrhoeae Amplified RNA (10/18/2015 11:23 AM INTERNET PROJECT MANAGER) Component Value Ref Test Analysis Performed At [facility] mPortico Method Time Signature HX GC by Nucleic POWERCHART Acid Amplification HXFinal Negative for POWERCHART Neisseria gonorrhea by RNA amplification . HXFinal Reference: POWERCHART Negative HXFinal If you POWERCHART submitted a female urine sample, please note it is a Laboratory Developed Test. Specimen (Source) Anatomical Collection Method Collection Time Re ceived Time Location / / Volume Laterality Cervix/Endocervix 10/18/2015 11:23 AM INTERNET PROJECT MANAGER Pierre Bangura M.D. LAB MICROBIOLOGY - GENERAL O CLARISSA Performing Organization Address City/[facility]/ZIP Code Phon e Number POWERCHART Chlamydia Trachomatis Amplified RNA (10/18/2015 11:23 AM INTERNET PROJECT MANAGER) Component Value Ref Test Analysis Performed At [facility] Range Method Time Signature HXChlamydia by POWERCHART Nucleic Acid Amplification HXFinal Negative for POWERCHART Chlamydia trachomatis by RNA amplification. HXFinal Reference: POWERCHART Negative HXFinal If you POWERCHART submitted a female urine sample, please note it is a Laboratory Developed Test. Specimen (Source) Anatomical Collection Method Collection Time Re ceived Time Location / / Volume Laterality Cervix/Endocervix 10/18/2015 11:23 AM INTERNET PROJECT MANAGER Pierre Bangura M.D. LAB MICROBIOLOGY - GENERAL O RDERAMARILYN Performing Organization Address City/[facility]/ZIP Code Phon e Number POWERCHART Test, Qualitative, Urine (10/18/2015 11:20 AM INTERNET PROJECT MANAGER) [facility] Method Time Signature HXBeta-hCG Negative POWERCHART Qualitative Urine Specimen (Source) Anatomical Collection Method Collection Time Re ceived Time Location / / Volume Laterality Urine 10/18/2015 11:20 AM INTERNET PROJECT MANAGER Pierre Bangura M.D. LAB URINE ORDERABLES Performing Organization Address City/State/ZIP Code Phon e Number POWERCHART documented in this encounter Visit Diagnoses Not on filedocumented in this encounter Additional Health Concerns Assessment Noted Time PHQ-9 Depression Total Score: 13 06/14/2015 3:56 PM CD T documented as of this encounter
--- OUTSIDE RECORDS SUMMARY | 2022-07-25 09:16 | XMS_ITS | Encounter Summary ---
:1985 Author Organization [facility] Address [address] [place] [address] Care Team Providers Name Role Phone Unavailable Primary Care Provider Unavailable Encounter Details Date Type Department Care Team Description 07/23/2013 Hospital Encounter HX [facility] FAMILYPRA Nika Rosales i, M.D. [address] [place] [phone] (Wo rk) Social History Tobacco [...] How often do you attend adventism or mu-ism Never 07/04/2019 services? 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 - 07/23/2013 9:26 AM CDT [id number] CHIEF COMPLAINT/ REASON FOR VISIT Ingrown toenail. [...] their behalf by Lacey Corley, a trained er medical technician. The creation of this record is based on the scribe's personal observations and the provider's statements to them. This document has been latricia cked and approved by the attending provider. Nika Rosen M.D./dorcas Electronically Signed By: NIKA ROSEN MD On: 08/04/2013 02:40 PM Source: [facility] MHSDOLBEYNONRADSYS Document Id: [id number] documented in this encounter Miscellaneous Notes Miscellaneous - Nika Ruth M.D. - 07/23/2013 10:28 AM CDT Ambulatory [place] [address] Visit Information Name: NANCY ROBINS [facility] Number: [id number] Visit Date: 07/23/2013 10:28:55 Attending [...] your provider for clarification. Additional Information: Source: [facility] POWERCHART Document Id: [id number] Miscellaneous - Nika Ruth M.D. - 07/23/2013 10:28 AM CDT Ambulatory Patient Summary [address] [address] Visit Information Name: NANCY ROBINS [facility] Number: [id number] Current Date: 07/23/2013 10:28:56 Physicians [...] No Appointments found Your Goals/Additional instructions: Source: [facility] POWERCHART Document Id: [id number] Miscellaneous - Conversion, Historical Provider Ser - 07/23/2013 9:34 AM CDT Adult Flexo Operator Intake/History Adult Flexo Operator Intake/History Entered On: 07/23/2013 9:37 CDT Performed [...] Index : 39.12 kg/m2 MAILE ORLANDO [facility] - 07/23/2013 9:34 CDT General Info Information Given By : Patient Languages : Omani MAILE ORLANDO [facility] - 07/23/2013 9:34 CDT Subjective Pain Symptoms : Yes MAILE ORLANDO [facility] - 07/23/2013 9:34 CDT Pain Pain Assessment Grid Pain 1 Location : Other: toe Laterality : Left ADRIANNA SHANITAMAILE [facility] - 07/23/2013 9:34 CDT Dependent Habits Tobacco Use/Currently Using : No Exposure to Tobacco Smoke : Other: never Smoking Status : Never smoker ADRIANNA SHANITAMIRNAMAILE CAROL EXECUTIVE OFFICE MANAGER - 07/23/2013 9:34 CDT Tobacco Use Grid Other Tobacco Frequency : never ADRIANNA SHANITAMIRNAMAILE CAROL EXECUTIVE OFFICE MANAGER - 07/23/2013 9:34 CDT Caffeine Use Grid Caffeine Use : Current Type : Soft drinks Frequency : Daily ADRIANNA MIRNA DIEHLALYX LUNA EXECUTIVE OFFICE MANAGER - 07/23/2013 9:34 CDT Source: [facility]ENTERBoot[facility] [employer]CHART Document Id: [id number] CDT!38 documented in this encounter Plan of Treatment Upcoming Encounters Date Type Specialty Care Team Description 08/17/2022 Procedure visit Neurology Marina Winter M.D., M.P.H. [address] [phone] (Wo rk) Scheduled Procedures Name Priority Associated Diagnoses Date/Time LIFT THIGH Excessive And Redundant Skin And Subcutaneous Tissue documented as of this encounter Visit Diagnoses Not on filedocumented in this encounter Additional Health Concerns Assessment Noted Time PHQ-9 Depression Total Score: 5 07/09/2013 9:08 AM CDT documented as of this encounter
--- OUTSIDE RECORDS SUMMARY | 2022-07-25 09:16 | XMS_ITS | Encounter Summary ---
:[address] [facility] Address [address] [place] [address] Care Team Providers Name Role Phone Unavailable Primary Care Provider Unavailable Encounter Details Date Type Department Care Team Description 11/27/2014 Hospital Encounter [facility]X [facility] Shiela Cadet M.B., Ch.B. [address] [place], [place] [phone] (Wo rk) Social History [...] How often do you attend jewish or temple Never 07/04/2019 services? 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 [address] [phone] (Wo rk) Scheduled Procedures Name Priority Associated Diagnoses Date/Time LIFT THIGH Excessive And Redundant Skin And Subcutaneous Tissue documented as of this encounter Procedures Procedure Name Priority Date/Time Associated Comments Diagnosis GLUCOSE, P Routine 11/27/2014 10:41 Results for this AM FLEXOGRAPHIC PRINTING MACHINIST procedure are i n the results section. AUTOMATED DIFFERENTIAL, Routine 11/27/2014 10:41 Results for this B AM FLEXOGRAPHIC PRINTING MACHINIST procedure are i n the results section. PROTHROMBIN TIME (PT), P Routine 11/27/2014 10:41 Results for this AM FLEXOGRAPHIC PRINTING MACHINIST procedure are i n the results section. CBC WITH DIFFERENTIAL, B Routine 11/27/2014 10:41 Results for this AM FLEXOGRAPHIC PRINTING MACHINIST procedure are i n the results section. ALANINE AMINOTRANSFERASE Routine 11/27/2014 10:41 Results for this (ALT), S/P AM FLEXOGRAPHIC PRINTING MACHINIST procedure are i n the results section. ASPARTATE Routine 11/27/2014 10:41 Results for this AMINOTRANSFERASE (AST), AM FLEXOGRAPHIC PRINTING MACHINIST proc edure are in S/P the results section. CREATININE WITH EGFR, Routine 11/27/2014 10:41 Re sults for this S/P AM FLEXOGRAPHIC PRINTING MACHINIST procedure are i n the results section. ALBUMIN, S/P Routine 11/27/2014 10:41 Results for this AM FLEXOGRAPHIC PRINTING MACHINIST procedure are i n the results section. documented in this encounter Results Automated Differential (11/27/2014 10:41 AM FLEXOGRAPHIC PRINTING MACHINIST) P athologist Signature Absolute 5.45 1.70 - POWERCHART Neutrophils 7.00 109L Lymphocytes 2.18 0.90 - POWERCHART 2.90 X109L Monocytes 0.55 0.30 - POWERCHART 0.90 X109L Eosinophils 0.20 0.05 - POWERCHART 0.50 X109L Absolute 0.02 0.00 - POWERCHART Basophil 0.30 X109L Specimen Anatomical Collection Method Collection Time Receive d Time (Source) Location / / Volume Laterality Blood 11/27/2014 10:41 11/27/2014 AM FLEXOGRAPHIC PRINTING MACHINIST 10:41 AM FLEXOGRAPHIC PRINTING MACHINIST Shiela Marx, Ch.B. LAB BLOOD ADD-ON Performing Organization Address City/State/ZIP Code Phon e Number POWERCHART PT (Prothrombin Time) with INR (11/27/2014 10:41 AM FLEXOGRAPHIC PRINTING MACHINIST) P athologist Signature INR 0.9 INR POWERCHART Specimen (Source) Anatomical Collection Method Collection Time Re ceived Time Location / / Volume Laterality Blood 11/27/2014 10:41 AM FLEXOGRAPHIC PRINTING MACHINIST Shiela Marx Ch.B. LAB BLOOD ADD-ON Performing Organization Address City/State/ZIP Code Phon e Number POWERCHART CBC with Differential (11/27/2014 10:41 AM FLEXOGRAPHIC PRINTING MACHINIST) P athologist Signature Leukocytes 8.4 3.4 - 10.5 POWERCHART X109L Erythrocytes 4.67 3.90 - POWERCHART 5.03 C9817M Hemoglobin 13.7 12.0 - POWERCHART 15.5 GDL Hematocrit 41.4 34.9 - POWERCHART 44.5 MCV 88.7 82.0 - POWERCHART 98.0 FL Platelet Count 253 150 - 450 POWERCHART X109L HX RDW 12.9 11.9 - POWERCHART 15.5 HXDifferential? Auto POWERCHART Specimen (Source) Anatomical Collection Method Collection Time Re ceived Time Location / / Volume Laterality Blood 11/27/2014 10:41 AM FLEXOGRAPHIC PRINTING MACHINIST Shiela Marx Ch.B. LAB BLOOD ADD-ON Performing Organization Address City/State/ZIP Code Phon e Number POWERCHART Glucose (11/27/2014 10:41 AM FLEXOGRAPHIC PRINTING MACHINIST) P athologist Signature Glucose 83 POWERCHART Specimen (Source) Anatomical Collection Method Collection Time Re ceived Time Location / / Volume Laterality Blood 11/27/2014 10:41 AM FLEXOGRAPHIC PRINTING MACHINIST Shiela Marx Ch.B. LAB BLOOD ADD-ON Performing Organization Address City/State/ZIP Code Phon e Number POWERCHART (ABNORMAL) Creatinine with eGFR (11/27/2014 10:41 AM FLEXOGRAPHIC PRINTING MACHINIST) Analysis Performed At Patho logist Time Signature Creatinine <0.5 (L) 0.7 - 1.2 POWERCHART MGDL HXeGFR (MDRD) >60 MLMIN POWERCHART eGFR >60 >=60 POWERCHART Black/ [id number] Polish Specimen (Source) Anatomical Collection Method Collection Time Re ceived Time Location / / Volume Laterality Blood 11/27/2014 10:41 AM FLEXOGRAPHIC PRINTING MACHINIST Shiela Marx Ch.B. LAB BLOOD ADD-ON Performing Organization Address City/State/ZIP Code Phon e Number POWERCHART AST (Aspartate Aminotransferase) (11/27/2014 10:41 AM FLEXOGRAPHIC PRINTING MACHINIST) Patholo gist Method Time Signature Aspartate <11 8 - 43 POWERCHART Aminotransferase UNITL (AST), S Specimen (Source) Anatomical Collection Method Collection Time Re ceived Time Location / / Volume Laterality Blood 11/27/2014 10:41 AM FLEXOGRAPHIC PRINTING MACHINIST Shiela Marx Ch.B. LAB BLOOD ADD-ON Performing Organization Address [facility] Code Phon e Number POWERCHART ALT (Alanine Aminotransferase) (11/27/2014 10:41 AM FLEXOGRAPHIC PRINTING MACHINIST) P athologist Signature Alanine 17 9 - 52 POWERCHART Amniotransferas UNITL e, LD Specimen (Source) Anatomical Collection Method Collection Time Re ceived Time Location / / Volume Laterality Blood 11/27/2014 10:41 AM FLEXOGRAPHIC PRINTING MACHINIST Shiela Marx Ch.B. LAB BLOOD ADD-ON Performing Organization Address City/[facility] Code Phon e Number POWERCHART (ABNORMAL) Albumin (11/27/2014 10:41 AM FLEXOGRAPHIC PRINTING MACHINIST) P athologist Signature Albumin, S 3.4 (L) 3.5 - 5.0 POWERCHART GMDL Specimen (Source) Anatomical Collection Method Collection Time Re ceived Time Location / / Volume Laterality Blood 11/27/2014 10:41 AM FLEXOGRAPHIC PRINTING MACHINIST Shiela Marx Ch.B. LAB BLOOD ADD-ON Performing Organization Address City/[facility] Code Phon e Number POWERCHART documented in this encounter Visit Diagnoses Not on filedocumented in this encounter Additional Health Concerns Assessment Noted Time PHQ-9 Depression Total Score: 10 10/12/2014 10:[address] documented as of this encounter
--- OUTSIDE RECORDS SUMMARY | 2022-07-25 09:16 | XMS_ITS | Encounter Summary ---
:1985 Author Organization [facility] Address [address] [place] [address] Care Team Providers Name Role Phone Unavailable Primary Care Provider Unavailable Encounter Details Date Type Department Care Team Description 05/12/2015 Hospital Encounter HX [facility] Meche Montiel M.D. [address] [place] [phone] (Wo rk) Social History Tobacco [...] How often do you attend shinto or presybeterian Never 07/04/2019 services? 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 - 05/12/2015 4:21 PM CDT [id number] CHIEF COMPLAINT / REASON FOR VISIT ER [...] weeks I recommend a referral to the [facility]. This document serves as a record of services personally performed by Annemarie Montiel MD. It was created on their behalf by Carolina Butt, a trained medical technologist blood bank. The creation of this record is based on the scribe's personal observations and the provider's statements to them. This document has been ch ecked and approved by the attending provider. Annemarie Montiel M.D./maribel Electronically Signed By: ANNEMARIE MONTIEL MD On: 05/30/2015 02:44 PM Source: [facility] MHSDOLBEYNONRADSYS Document Id: [id number] documented in this encounter Miscellaneous Notes Miscellaneous - Annemarie Montiel M.D. - 05/12/2015 6:17 PM CDT Ambulatory Patient Summary [facility] [address] [place], [place] [phone] Visit Information Name: NANCY PHILLIPS [facility] Number: [id number] Current Date: 05/12/2015 18:17:28 Physicians [...] Tablet(s), Oral, once a day [facility] [address] [place] [address] hydrOXYzine (Vistaril 25 mg oral capsule) 1 cap, Oral, four times a day as needed for Migraine headache meclizine (meclizine 25 mg oral tablet) 1 Tablet(s), Oral, three times a day as needed for DizzinessNew Routed to [facility] [address] [place] [address] naproxen (Naprosyn 500 mg oral [...] if you dont have one. Go to [email or web address] and click on Create Your Account. Then, follow the directions to complete the online form. Youll be asked for your [facility] number which you can find at the top of this document. Your Goals/Additional instructions: Source: [facility] POWERCHART Document Id: [id number] Miscellaneous - Annemarie Montiel M.D. - 05/12/2015 6:17 PM CDT Ambulatory Discharge Medication List [facility] [address] [place] [id number] Visit Information Name: NANCY PHILLIPS [facility] Number: [id number] Visit Date: 05/12/2015 18:17:26 Attending [...] Tablet(s), Oral, once a day [facility] [address] [place] [address] hydrOXYzine (Vistaril 25 mg oral capsule) 1 cap, Oral, four times a day as needed for Migraine headache meclizine (meclizine 25 mg oral tablet) 1 Tablet(s), Oral, three times a day as needed for DizzinessNew [facility] [address] [place] [address] naproxen (Naprosyn 500 mg oral [...] MD Signed On:12-MAY-2015 18:17:10 Additional Information: Source: [facility] POWERCHART Document Id: [id number] Miscellaneous - Jorge Ovalles L.P.N. 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 [address] [place], [place] [phone] (Wo rk) Scheduled Procedures Name Priority Associated Diagnoses Date/Time LIFT THIGH Excessive And Redundant Skin And Subcutaneous Tissue documented as of this encounter Visit Diagnoses Not on filedocumented in this encounter Additional Health Concerns Assessment Noted Time PHQ-9 Depression Total Score: 6 02/15/2015 4:18 PM CDT documented as of this encounter
--- OUTSIDE RECORDS SUMMARY | 2022-07-25 09:16 | XMS_ITS | Encounter Summary ---
:[address] [facility] Address [address] [place] [address] Care Team Providers Name Role Phone Unavailable Primary Care Provider Unavailable Encounter Details Date Type Department Care Team Description 11/04/2014 Hospital Encounter HX [facility] Grandalfred, Lizandro Olguin, P.A.-C., P.A. [address] [place], [place] [phone] (Wo rk) Social History [...] How often do you attend bahai or baptist Never 07/04/2019 services? 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 documented as of this encounter Last Filed Vital Signs Vital Sign Reading Time Taken Comments Blood Pressure 118/70 11/04/2014 10:36 AM ROLLING MILL OPERATOR HELPER Pulse 74 11/04/2014 10:36 AM ROLLING MILL OPERATOR HELPER Temperature - - Respiratory Rate 18 11/04/2014 10:36 AM ROLLING MILL OPERATOR HELPER Oxygen Saturation - - Inhaled Oxygen Concentration - - Weight 124 kg (274 lb 7.6 oz) 11/04/2014 10:36 AM ROLLING MILL OPERATOR HELPER Height 164 cm (5' 4.57) 11/04/2014 10:36 AM ROLLING MILL OPERATOR HELPER Body Mass Index 46.29 11/04/2014 10:36 AM ROLLING MILL OPERATOR HELPER documented in this encounter H&P Notes Jenae Minor P.A.-C., P.A. - 11/04/2014 10:28 AM CST [id number] CHIEF COMPLAINT/REASON FOR VISIT Preventative health maintenance well-woman exam. HISTORY OF PRESENT ILLNESS Nancy is a 29-year-old female, here today for preventative health maintenance/well-woman exam. Toshiahas struggled with weight issues and obesity for quite some time. She actually is meeting with [facility] in November to discuss options for bariatric [...] She is scheduled for consultation visit with [facility] to further [...] MINOR PA-C On: 11/11/2014 06:29 PM Source: [facility] MHSDOLBEYNONRADSYS Document Id: [id number] ING MILL OPERATOR HELPER documented in this encounter Miscellaneous Notes Telephone Encounter - Conversion, Historical Provider Ser - 05/06/2015 9:22 AM CDT *Phone Message- Jenae Minor Document Contains Addenda Addendum by TAWNYA CHAVES SRN on 06 May 2015 10:34:02 CDT Patient was transferred to scheduling to make a follow up ER appt. for vertigo. From: BRENT AGUILAR To: JACEY KUMARsong plugger Med [facility]; Sent: 05/06/2015 09:22:22 CDT Subject: *Phone Message- [...] visit A: R: Please call pt at [phone] Advice/Action: Source used: ( ) Verbalizes understanding [...] back cell phone number ( ) [facility] Document Id: [id number] Miscellaneous - Jenae Minor PSandra-Lexy., P.A. - 11/06/2014 5:24 PM ROLLING MILL OPERATOR HELPER Results Notification Document Contains Addenda Addendum by OTIS ROBERT LPN on 09 November 2014 17:36:04 ROLLING MILL OPERATOR HELPER Patient notified of results. From: JENAE MINOR PA-C To: JACEY Minor Nurse; Sent: 11/06/2014 17:24:12 ROLLING MILL OPERATOR HELPER ! Show up: 11/06/2014 17:24:12 ROLLING MILL OPERATOR HELPER Subject: Results Notification Actions: Notify patient of results Reminder Comments: Neg GC/Chlam Results: Date Result Name Value Ref Range 11/04/2014 12:24 C trach Amp Src-[facility] URINE 11/04/2014 12:24 C trach Amp RNA-[facility] Negative (Negative - ) 11/04/2014 12:24 N gonor Amp DNA-[facility] Negative (Negative - ) 11/04/2014 12:24 N gonor Amp Src-[facility] URINE Source: [employer] Document Id: [id number] Electronically signed by Conversion, [facility] Anodiser [id number] at 04/03/2017 4:39 PM CDT Miscellaneous - Jenae Minor P.A.-Lexy., P.A. - 11/04/2014 1:19 PM ROLLING MILL OPERATOR HELPER Ambulatory Patient Summary [facility] [address] [place] [phone] Visit Information Name: TAYENANCY KEYS [facility] Number: [id number] Current Date: 11/04/2014 13:19:29 Physicians [...] headache Routed to [facility] [address] [place] [address] naproxen (Naprosyn 500 mg oral tablet) 1 Tablet(s), Oral, two times a day with meals as needed for pain and headaches will call when refill needed Routed to [facility] [address] [place] [address] norgestimate-ethinyl estradiol (Ortho-Cyclen 0.25 mg-35 mcg oral tablet) 1 Tablet(s), Oral, once a day take 21 days of active tablets then skip placebos and start the next pack rizatriptan (Maxalt 5 mg oral tablet) 1 Tablet(s), Oral, once a day as needed for Migraine headache may repeat dose once in 2 hours New Routed to [facility] [address] [place] [address] venlafaxine (Effexor XR 75 mg oral capsule, extended release) 1 cap, Oral, once a day for anxiety/depression This is a CHANGE Routed to [facility] [address] [place] [address] Stop Taking the Following Medications: Medication list [...] appointment detail needed. Your Goals/Additional instructions: Source: [facility] POWERCHART Document Id: [id number] ING MILL OPERATOR HELPER Miscellaneous - Jenae iMnor P.A.-C., P.A. - 11/04/2014 1:19 PM ROLLING MILL OPERATOR HELPER Ambulatory Discharge Medication List [facility] [address] [place], [place] [phone] Visit Information Name: NANCY ROBINS [facility] Number: [id number] Visit Date: 11/04/2014 13:19:28 Attending Provider: JENAE MINOR PA-C Primary Care Provider: JENAE MINOR PA-C NANCY ORBINS ELIZABETH has been given the following list [...] as needed for Migraine [place] [address] naproxen (Naprosyn 500 mg oral tablet) 1 Tablet(s), Oral, two times a day with meals as needed for pain and headaches will call when refill [place] [address] norgestimate-ethinyl estradiol (Ortho-Cyclen 0.25 mg-35 mcg oral tablet) 1 Tablet(s), Oral, once a day take 21 days of active tablets then skip placebos and start the next pack rizatriptan (Maxalt 5 mg oral tablet) 1 Tablet(s), Oral, once a day as needed for Migraine headache may repeat dose once in 2 hours New Routed to [address] [address] venlafaxine (Effexor XR 75 mg oral capsule, extended release) 1 cap, Oral, once a day for anxiety/depression This [place] [address] Stop Taking the Following Medications: Medication list [...] PA-C Signed On:04-NOV-2014 13:18:24 Additional Information: Source: [facility] POWERCHART Document Id: [id number] ING MILL OPERATOR HELPER Miscellaneous - Clifford Ovalles L.P.N. 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 : No CLIFFORD OVALLES LPN - 11/04/2014 10:36 ROLLING MILL OPERATOR HELPER Subjective Pain Symptoms : No CLIFFORD OVALLES LPN - 11/04/2014 10:36 ROLLING MILL OPERATOR HELPER Dependent Habits Tobacco Use/Currently Using : No Exposure to Tobacco Smoke : Other: never Smoking Status : Never smoker CLIFFORD OVALLES LPN - 11/04/2014 10:36 ROLLING MILL OPERATOR HELPER Tobacco Use Grid Other Tobacco Frequency : never CLIFFORD OVALLES LPN - 11/04/2014 10:36 ROLLING MILL OPERATOR HELPER Caffeine Use Grid Caffeine Use : Current Type : Soft drinks Frequency : Daily CLIFFORD OVALLES LPN - 11/04/2014 10:36 ROLLING MILL OPERATOR HELPER ID Screen Travel Within Last 21 Days : No CLIFFORD OVALLES LPN - 11/04/2014 10:36 ROLLING MILL OPERATOR HELPER [facility] POWER[facility] Document Id: [id number] ROLLING MILL OPERATOR HELPER!42 ING MILL OPERATOR HELPER documented in this encounter Plan of Treatment Upcoming Encounters Date Type Specialty Care Team Description 08/17/2022 Procedure visit Neurology Marina Winter M.D., M.P.H. [address] [phone] (Wo rk) Scheduled Procedures Name Priority Associated Diagnoses Date/Time LIFT THIGH Excessive And Redundant Skin And Subcutaneous Tissue documented as of this encounter Procedures Procedure Name Priority Date/Time Associated Diagnosis Comme nts N GONOR AMP SRC Routine 11/04/2014 12:24 PM Resul ts for this ROLLING MILL OPERATOR HELPER procedure are i n the results section. N GONOR AMP DNA Routine 11/04/2014 12:24 PM Resul ts for this ROLLING MILL OPERATOR HELPER procedure are i n the results section. C TRACH AMP SRC Routine 11/04/2014 12:24 PM Resul ts for this ROLLING MILL OPERATOR HELPER procedure are i n the results section. C TRACH AMP RNA Routine 11/04/2014 12:24 PM Resul ts for this ROLLING MILL OPERATOR HELPER procedure are i n the results section. documented in this encounter Results HX-N gonor Amp DNA (11/04/2014 12:24 PM ROLLING MILL OPERATOR HELPER) athologist Signature HXN gonor Amp Negative POWERCHART DNA-[facility] Specimen (Source) Anatomical Collection Method Collection Time Re ceived Time Location / / Volume Laterality 11/04/2014 12:24 PM ROLLING MILL OPERATOR HELPER Narrative POWERCHART - 11/06/2014 4:53 PM ROLLING MILL OPERATOR HELPER Test Performed by: [address] [address] Records And Tape Recordings Engineer: Sharif Reece Jenae Minor P.A.-C., P.A. LAB HISTORICAL ORDERS Performing Organization Address City/State/ZIP Code Phon e Number POWERCHART HX-N gonor Amp Src (11/04/2014 12:24 PM ROLLING MILL OPERATOR HELPER) athologist Signature HXN gonor Amp URINE POWERCHART Src-[facility] [place] Specimen (Source) Anatomical Collection Method Collection Time Re ceived Time Location / / Volume Laterality 11/04/2014 12:24 PM ROLLING MILL OPERATOR HELPER Jenae Minor P.A.-C., P.A. LAB HISTORICAL ORDERS Performing Organization Address City/State/ZIP Code Phon e Number POWERCHART HX-C trach Amp RNA (11/04/2014 12:24 PM ROLLING MILL OPERATOR HELPER) Patholo gist Method Time Signature Chlamydia Negative POWERCHART trachomatis amplified RNA Specimen (Source) Anatomical Collection Method Collection Time Re ceived Time Location / / Volume Laterality 11/04/2014 12:24 PM ROLLING MILL OPERATOR HELPER Jenae Minor P.A.-C., P.A. LAB HISTORICAL ORDERS Performing Organization Address City/[facility]/ZIP Code Phon e Number POWERCHART HX-C trach Amp Src (11/04/2014 12:24 PM ROLLING MILL OPERATOR HELPER) P athologist Signature HXC trach Amp URINE POWERCHART Src-[place] Specimen (Source) Anatomical Collection Method Collection Time Re ceived Time Location / / Volume Laterality 11/04/2014 12:24 PM ROLLING MILL OPERATOR HELPER Jenae Minor P.A.-C., P.A. LAB HISTORICAL ORDERS Performing Organization Address City/State/ZIP Code Phon e Number POWERCHART documented in this encounter Visit Diagnoses Not on filedocumented in this encounter Additional Health Concerns Assessment Noted Time PHQ-9 Depression Total Score: 10 10/12/2014 10:[address] documented as of this encounter
--- OUTSIDE RECORDS SUMMARY | 2022-07-25 09:16 | XMS_ITS | Encounter Summary ---
:1985 Author Organization [facility] Address [address] [place] [address] Care Team Providers Name Role Phone Unavailable Primary Care Provider Unavailable Encounter Details Date Type Department Care Team Description 02/09/2014 Hospital Encounter HX [facility] FAMILYPRA Grandalfred, Lizandro Olguin, P.A.-C., P.A. [address] [place], [place] [address] (Wo rk) Social History [...] How often do you attend yazdanism or pentecostalism Never 07/04/2019 services? 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 POWERCHART Document Id: [id number] CDT!9 documented in this encounter Plan of Treatment Upcoming Encounters Date Type Specialty Care Team Description 08/17/2022 Procedure visit Neurology Marina Winter M.D., M.P.H. [address] [phone] (Wo rk) Scheduled Procedures Name Priority Associated Diagnoses Date/Time LIFT THIGH Excessive And Redundant Skin And Subcutaneous Tissue documented as of this encounter Visit Diagnoses Not on filedocumented in this encounter Additional Health Concerns Assessment Noted Time PHQ-9 Depression Total Score: 5 07/09/2013 9:08 AM CDT documented as of this encounter
--- OUTSIDE RECORDS SUMMARY | 2022-07-25 09:16 | XMS_ITS | Encounter Summary ---
:1985 Author Organization [facility] Address [address] [place] [address] Care Team Providers Name Role Phone Unavailable Primary Care Provider Unavailable Encounter Details Date Type Department Care Team Description 04/02/2014 Hospital Encounter HX [facility] OWOC FAMILYPRA Grandalfred, Lizandro Olguin, P.A.-C., P.A. [address] [place], [place] [address] (Wo rk) Social History [...] How often do you attend caodaism or shinto Never 07/04/2019 services? 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 notified of message and she states understanding. This was faxed to [employer] in [place] per patient request. Addendum by AJAY OG [...] day(s) Refills: 0 Substitutions Allowed Print - [id number] Signed by LEXII MINOR PA-C 04/08/2014 10:15:19 Addendum by AJAY OG LPN on 08 April 2014 08:39:09 CDT From: AJAY OG LPN (JACEY Minor Nurse) To: LEXII MINOR PA-C; Sent: 04/08/2014 08:39:09 CDT Subject: FW: Med Management Addendum by JAYLENE CASANOVA on 07 April 2014 17:01:19 CDT From: JAYLENE CASANOVA (JACEY Berry Nurse) To: JACEY Minor Nurse; [...] absense, patient has 4 tablets left. B/P 118/76,.6 on 04-02-2014, weight x7 weeks ago , 108.2 B/p 112/76 Last / Future Appointment: Disposition: ( ) Send to Pharmacy ( ) Call to Pharmacy ( ) Patient will chart picker Script ( ) Mail Rx to Patient Source: [facility] POWERCHART Document Id: [id number] documented in this encounter Plan of Treatment Upcoming Encounters Date Type Specialty Care Team Description 08/17/2022 Procedure visit Neurology Marina Winter M.D., M.P.H. [address] [phone] (Wo rk) Scheduled Procedures Name Priority Associated Diagnoses Date/Time LIFT THIGH Excessive And Redundant Skin And Subcutaneous Tissue documented as of this encounter Visit Diagnoses Not on filedocumented in this encounter Additional Health Concerns Assessment Noted Time PHQ-9 Depression Total Score: 5 02/18/2014 10:07 AM CD T documented as of this encounter
--- OUTSIDE RECORDS SUMMARY | 2022-07-25 09:16 | XMS_ITS | Encounter Summary ---
:1985 Author Organization [facility] Address [address] [place] [address] Care Team Providers Name Role Phone Unavailable Primary Care Provider Unavailable Encounter Details Date Type Department Care Team Description 09/14/2015 Hospital Encounter HX NO MAPPING Checo Wright III, M.D. (Skip), M.P.H. [address] [place], [place] [address] (Wo rk) Social History Tobacco Use [...] How often do you attend voodoo or synagogue Never 07/04/2019 services? 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 [address] [phone] (Wo rk) Scheduled Procedures Name Priority Associated Diagnoses Date/Time LIFT THIGH Excessive And Redundant Skin And Subcutaneous Tissue documented as of this encounter Visit Diagnoses Not on filedocumented in this encounter Additional Health Concerns Assessment Noted Time PHQ-9 Depression Total Score: 13 06/14/2015 3:56 PM CD T documented as of this encounter
--- OUTSIDE RECORDS SUMMARY | 2022-07-25 09:16 | XMS_ITS | Encounter Summary ---
:1985 Author Organization [facility] Address [address] [place] [address] Care Team Providers Name Role Phone Unavailable Primary Care Provider Unavailable Encounter Details Date Type Department Care Team Description 05/05/2015 Hospital Encounter HX NO MAPPING Donnie Diaz M.D. [address] [place], [place] [phone] (Wo rk) Social History [...] How often do you attend zoroastrian or worship Never 07/04/2019 services? 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 [address] [phone] (Wo rk) Scheduled Procedures Name Priority Associated Diagnoses Date/Time LIFT THIGH Excessive And Redundant Skin And Subcutaneous Tissue documented as of this encounter Visit Diagnoses Not on filedocumented in this encounter Additional Health Concerns Assessment Noted Time PHQ-9 Depression Total Score: 6 02/15/2015 4:18 PM CDT documented as of this encounter
--- OUTSIDE RECORDS SUMMARY | 2022-07-25 09:16 | XMS_ITS | Encounter Summary ---
:1985 Author Organization [facility] Address [address] [place] [address] Care Team Providers Name Role Phone Unavailable Primary Care Provider Unavailable Encounter Details Date Type Department Care Team Description 10/08/2014 Hospital Encounter HX [facility] FBCV Bryson Escobar Jr., M.D. 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 - 10/08/2014 8:28 AM CST [id number] CHIEF COMPLAINT/REASON FOR VISIT Nexplanon removal and [...] their behalf by Amanda Smith, a trained biomedical equipment tech. The creation of this record is based on the scribe's personal observations and the provider's statements to them. This document has been ch ecked and approved by the attending provider. Bryson Hoang M.D./joselito Electronically Signed By: BRYSON HOANG MD On: 10/08/2014 11:32 AM Source: [facility] MHSDOLBEYNONRADSYS Document Id: [id number] LANCE ATTENDANT Bryson Hoang Jr., M.D. - 10/08/2014 8:28 AM CST [id number] CHIEF COMPLAINT/REASON FOR VISIT Nexplanon removal. IMPRESSION/REPORT/PLAN [...] their behalf by Amanda Smith, a trained biomedical equipment tech. The creation of this record is based on the scribe's personal observations and the provider's statements to them. This document has been ch ecked and approved by the attending provider. Bryson Hoang M.D./joselito Electronically Signed By: BRYSON HOANG MD On: 10/08/2014 04:00 PM Source: [facility] MHSDOLBEYNONRADSYS Document Id: [id number] LANCE ATTENDANT documented in this encounter Miscellaneous Notes Miscellaneous - Bryson Hoang Jr., M.D. - 10/08/2014 8:44 AM CST Ambulatory Patient Summary [facility] [address] [place] [id number] Visit Information Name: NANCY ROBINS [facility] Number: [id number] Current Date: 10/08/2014 08:44:23 Physicians [...] start the next pack New Routed to [address] [place], [place] [id number] Stop Taking the Following Medications: etonogestrel (Nexplanon [...] Appointments Date Time Location Provider 10/12/2014 09:15 [facility]isel[facility] Mckeon PA-C 11/04/2014 10:45 [facility] Lexii Stein Attention: Contact your local Clinic if further appointment detail needed. Your Goals/Additional instructions: Source: [facility] POWERCHART Document Id: [id number] LANCE ATTENDANT Miscellaneous - Bryson Hoang Jr., M.D. - 10/08/2014 8:44 AM CST Ambulatory Discharge Medication List [facility] [address] [facility] [place] [id number] Visit Information Name: NANCY ROBINS [facility] Number: [id number] Visit Date: 10/08/2014 08:44:22 Attending [...] start the next pack New Routed to [address] [place] [address] Stop Taking the Following Medications: etonogestrel (Nexplanon [...] MD Signed On:08-OCT-2014 08:44:18 Additional Information: Source: [facility] POWERCHART Document Id: [id number] LANCE ATTENDANT Miscellaneous - Nicki Vaz, RRodrigoN. 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 : No NICKI PAIGE - 10/08/2014 8:31 AMBULANCE ATTENDANT Subjective Pain Symptoms : No NICKI PAIGE - 10/08/2014 8:31 AMBULANCE ATTENDANT Dependent Habits Tobacco Use/Currently Using : No Exposure to Tobacco Smoke : Other: never Smoking Status : Never smoker NICKI PAIGE - 10/08/2014 8:31 AMBULANCE ATTENDANT Tobacco Use Grid Other Tobacco Frequency : never NICKI PAIGE - 10/08/2014 8:31 AMBULANCE ATTENDANT Caffeine Use Grid Caffeine Use : Current Type : Soft drinks Frequency : Daily NICKI PAIGE - 10/08/2014 8:31 AMBULANCE ATTENDANT ID Screen Travel Within Last 21 Days : No NICKI PAIGE - 10/08/2014 8:31 AMBULANCE ATTENDANT [facility] POWERCH[facility] Document Id: [id number] AMBULANCE ATTENDANT!36 LANCE ATTENDANT documented in this encounter Plan of Treatment Upcoming Encounters Date Type Specialty Care Team Description 08/17/2022 Procedure visit Neurology Marina Winter M.D., M.P.H. [address] [phone] (Wo rk) Scheduled Procedures Name Priority Associated Diagnoses Date/Time LIFT THIGH Excessive And Redundant Skin And Subcutaneous Tissue documented as of this encounter Visit Diagnoses Not on filedocumented in this encounter Additional Health Concerns Assessment Noted Time PHQ-9 Depression Total Score: 5 02/18/2014 10:07 AM CD T documented as of this encounter
--- OUTSIDE RECORDS SUMMARY | 2022-07-25 09:16 | XMS_ITS | Encounter Summary ---
:1985 Author Organization [facility] Address [address] [place] [address] Care Team Providers Name Role Phone Unavailable Primary Care Provider Unavailable Encounter Details Date Type Department Care Team Description 02/17/2015 Hospital Encounter HX [facility] FBHB FAMILYPRA Nadir Oneal P.A.-C. [address] [place] [phone] (Wo rk) Social History Tobacco [...] How often do you attend mandaen or sabianist Never 07/04/2019 services? 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 - 02/17/2015 2:45 PM CDT [id number] CHIEF COMPLAINT/REASON FOR VISIT Cough. HISTORY OF [...] ONEAL PA-C On: 02/17/2015 04:44 PM Source: [facility] MHSDOLBEYNONRADSYS Document Id: [id number] documented in this encounter Miscellaneous Notes Miscellaneous - Jennifer Oneal P.A.-C. - 02/17/2015 3:56 PM CDT Ambulatory Patient Summary [address], [place] [phone] Visit Information Name: NANCY PHILLIPS [facility] Number: [id number] Current Date: 02/17/2015 15:55:59 [...] appointment detail needed. Your Goals/Additional instructions: Source: [facility] POWERCHART Document Id: [id number] Miscellaneous - Jennifer Oneal P.A.-C. - 02/17/2015 3:55 PM CDT Ambulatory Discharge Medication List [address] [id number] Visit Information Name: NANCY PHILLIPS [facility] Number: [id number] Visit Date: 02/17/2015 15:55:57 [...] PA-C Signed On:17-FEB-2015 15:55:52 Additional Information: Source: [facility] POWERCHART Document Id: [id number] Miscellaneous - Waldo Burnett LRodrigoPRodrigoN. 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 [address] [place] [phone] (Wo rk) Scheduled Procedures Name Priority Associated Diagnoses Date/Time LIFT THIGH Excessive And Redundant Skin And Subcutaneous Tissue documented as of this encounter Visit Diagnoses Not on filedocumented in this encounter Additional Health Concerns Assessment Noted Time PHQ-9 Depression Total Score: 6 02/15/2015 4:18 PM CDT documented as of this encounter
--- OUTSIDE RECORDS SUMMARY | 2022-07-25 09:16 | XMS_ITS | Encounter Summary ---
:1985 Author Organization [facility] Address [address] [place] [address] Care Team Providers Name Role Phone Unavailable Primary Care Provider Unavailable Encounter Details Date Type Department Care Team Description 12/22/2013 Hospital Encounter HX [facility] OWOC FAMILYPRA Grandalfred, Lizandro Olguin, P.A.-C., P.A. [address] [place], [place] [address] (Wo rk) Social History [...] How often do you attend orthodox or episcopal Never 07/04/2019 services? 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 documented as of this encounter Last Filed Vital Signs Vital Sign Reading Time Taken Comments Blood Pressure 122/74 12/22/2013 12:32 PM STEWARD/STEWARDESS WINE Pulse - - Temperature - - Respiratory Rate - - Oxygen Saturation - - Inhaled Oxygen Concentration - - Weight 107 kg (235 lb 0.2 oz) 12/22/2013 12:32 PM STEWARD/STEWARDESS WINE Height - - Body Mass Index 39.39 11/17/2013 10:08 AM STEWARD/STEWARDESS WINE documented in this encounter Nursing Notes Conversion, Historical Provider Ser - 12/22/2013 12:32 PM CST Nurse Only Documentation Nurse Only Documentation Entered On: 12/22/2013 12:34 STEWARD/STEWARDESS WINE Performed On: 12/22/2013 12:32 STEWARD/STEWARDESS WINE by ANGEL BROWN Nurse Only Documentation Nurse Only Visit Documentation : Patient here for a phentermine 37.5mg refill. 11/17/13 BP 126/80 Wt 105.6kg TODAY BP 122/74 Wt 106.6kg ANGEL BROWN - 12/22/2013 12:32 STEWARD/STEWARDESS WINE Vitals/Ht/Wt Systolic Blood Pressure : 122 mmHg Diastolic Blood Pressure : 74 mmHg NIBP Mean : 90 mmHg BP Location : Right upper extremity Blood Pressure Cuff Size : Regular Actual Weight : 106.6 kg(Converted to: 235 lb 0 oz) Dosing Weight Clinic : 106.6 kg ANGEL BROWN - 12/22/2013 12:32 STEWARD/STEWARDESS WINE [facility] Document Id: [id number] STEWARD/STEWARDESS WINE!11 documented in this encounter Miscellaneous Notes Miscellaneous - Conversion, Historical Provider Ser - 12/22/2013 12:37 PM STEWARD/STEWARDESS WINE Phentermine Refill Document Contains Addenda Addendum by AJAY OG LPN on 23 December 2013 11:18:38 STEWARD/STEWARDESS WINE Pt. Notified Addendum by LEXII MINOR PA-C on 23 December 2013 07:54:59 STEWARD/STEWARDESS WINE From: LEXII MINOR PA-C To: JACEY Minor Nurse; Sent: 12/23/2013 07:54:59 STEWARD/STEWARDESS WINE Subject: FW: Phentermine Refill Please notify patient RX printed. CG Addendum by LEXII MINOR PA-C on 23 December 2013 07:54:31 STEWARD/STEWARDESS WINE Submitted: Order:phentermine (phentermine 37.5 mg oral tablet) 1 tab(s) PO Daily Qty: 30 tab(s) Duration: 30 day(s) Refills: 0 Substitutions Allowed Print - [id number] Signed by LEXII MINOR PA-C 12/23/2013 07:54:04 From: ANGEL BROWN (OW Plate Nurse) To: LEXII MINOR PA-C; Cc: JACEY Minor Nurse; Sent: 12/22/2013 12:37:02 STEWARD/STEWARDESS WINE Subject: Phentermine Refill Patient here for a phentermine 37.5mg refill. 11/17/13 BP 126/80 Wt 105.6kg TODAY BP 122/74 Wt 106.6kg She would like a refill sent to the info desk. Please call when it is ready to get picked up. She ishopeing to get it sunday. [facility]: [facility] Document Id: [id number] documented in this encounter Plan of Treatment Upcoming Encounters Date Type Specialty Care Team Description 08/17/2022 Procedure visit Neurology Marina Winter M.D., M.P.H. [address], [place] [phone] (Wo rk) Scheduled Procedures Name Priority Associated Diagnoses Date/Time LIFT THIGH Excessive And Redundant Skin And Subcutaneous Tissue documented as of this encounter Visit Diagnoses Not on filedocumented in this encounter Additional Health Concerns Assessment Noted Time PHQ-9 Depression Total Score: 5 07/09/2013 9:08 AM CDT documented as of this encounter
--- OUTSIDE RECORDS SUMMARY | 2022-07-25 09:16 | XMS_ITS | Encounter Summary ---
:1985 Author Organization [facility] Address [address] [place] [address] Care Team Providers Name Role Phone Unavailable Primary Care Provider Unavailable Encounter Details Date Type Department Care Team Description 12/21/2014 Hospital Encounter HX [facility] Bryson Escobar Jr., M.D. [address] [place], [place] [phone] (Wo rk) Social History [...] How often do you attend shinto or spiritism Never 07/04/2019 services? 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 - 12/21/2014 10:35 AM CST [id number] CHIEF COMPLAINT/REASON FOR VISIT Medication check. HISTORY [...] behalf by April Toribio, a trained medical staff services coordinator. The creation of this record is basedon the scribe's personal observations and the provider's statements to them. This document has been c hecked and approved by the attending provider. Bryson Hoang M.D./ Electronically Signed By: BRYSON HOANG MD On: 12/21/2014 12:31 PM Source: [facility] MHSDOLBEYNONRADSYS Document Id: [id number] ING MANAGER documented in this encounter Miscellaneous Notes Telephone [...] on 02 March 2015 13:23:30 CDT From: NCIKI PAIGE ( Obstetrics/Gynecology Nurse) To: BRYSON HOANG MD; Sent: 03/02/2015 13:23:30 CDT Subject: FW: *Phone Message/Dr. Hoang Patient took home test 2 weeks ago and it was negative. She is taking her control continuously and having spotting. Please advise. From: SANDRA DIETZ ( [place] Eyedotter) To: Obstetrics/Gynecology Nurse; Sent: 03/02/2015 10:26:02 CDT [...] A R Please call patient back at [phone] to advise. Advice/Action: Source used: ( ) [...] back cell phone number ( ) Source: [facility] imo.im Document Id: [id number] Miscellaneous - Bryson Hoang Jr., M.D. - 12/21/2014 11:02 AM CST Ambulatory Patient Summary [facility] [address] [place] [id number] Visit Information Name: NANCY ROBINS [facility] Number: [id number] Current Date: 12/21/2014 11:02:36 [...] and start the next pack Routed to [address] [address] rizatriptan (Maxalt 5 mg oral tablet) 1 [...] appointment detail needed. Your Goals/Additional instructions: Source: [facility] POWERCHART Document Id: [id number] ING MANAGER Miscellaneous - Bryson Hoang Jr., M.D. - 12/21/2014 11:02 AM CST Ambulatory Discharge Medication List [address] [place] [phone] Visit Information Name: NANCY ROBINS [facility] Number: [id number] Visit Date: 12/21/2014 11:02:34 [...] and start the next pack Routed to [address] [place] [address] rizatriptan (Maxalt 5 mg oral tablet) 1 [...] MD Signed On:21-DEC-2014 11:02:29 Additional Information: Source: [facility] POWERCHART Document Id: [id number] ING MANAGER Miscellaneous - Nicki Vaz R.N. - 12/21/2014 10:38 AM CST Adult Veneer Department Manager Intake/History Adult Veneer Department Manager Intake/History Entered On: 12/21/2014 10:40 COATING MANAGER Performed On: 12/21/2014 10:38 COATING MANAGER by NICKI PAIGE Intake Chief Complaint : [...] : 46.85 kg/m2 NICKI PAIGE 12/21/2014 10:38 COATING MANAGER General Info Languages : Czech Is Patient Female and 13-50 no hysterectomy : Yes Status : Patient denies Are you ? : No NICKI PAIGE 12/21/2014 10:38 COATING MANAGER Subjective Pain Symptoms : No NICKI PAIGE 12/21/2014 10:38 COATING MANAGER Dependent Habits Tobacco Use/Currently Using : No Exposure to Tobacco Smoke : Other: never Smoking Status : Never smoker NICKI PAIGE 12/21/2014 10:38 COATING MANAGER Tobacco Use Grid Other Tobacco Frequency : never NICKI PAIGE 12/21/2014 10:38 COATING MANAGER Caffeine Use Grid Caffeine Use : Current Type : Soft drinks Frequency : Daily NICKI PAIGE 12/21/2014 10:38 COATING MANAGER ID Screen Travel Within Last 21 Days : No NICKI PAIGE 12/21/2014 10:38 COATING MANAGER Source: [facility] POWERCHART Document Id: [id number] COATING MANAGER!34 ING MANAGER documented in this encounter Plan of Treatment Upcoming Encounters Date Type Specialty Care Team Description 08/17/2022 Procedure visit Neurology Marina Winter M.D., M.P.H. [address] [phone] (Wo rk) Scheduled Procedures Name Priority Associated Diagnoses Date/Time LIFT THIGH Excessive And Redundant Skin And Subcutaneous Tissue documented as of this encounter Visit Diagnoses Not on filedocumented in this encounter Additional Health Concerns Assessment Noted Time PHQ-9 Depression Total Score: 10 10/12/2014 10:[address] documented as of this encounter
--- OUTSIDE RECORDS SUMMARY | 2022-07-25 09:16 | XMS_ITS | Encounter Summary ---
:1985 Author Organization [facility] Address [address] [place] [address] Care Team Providers Name Role Phone Unavailable Primary Care Provider Unavailable Encounter Details Date Type Department Care Team Description 10/12/2014 Hospital Encounter [facility]X [facility] Griselda Baird, ArnoldoA. [address] [place] [address] [place] [phone] (Wo rk) Social History Tobacco Use Types [...] How often do you attend quaker or jewish Never 07/04/2019 services? 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 documented as of this encounter Last Filed Vital Signs Vital Sign Reading Time Taken Comments Blood Pressure 122/78 10/12/2014 9:00 AM MACHINE WEDGER Pulse 76 10/12/2014 9:00 AM MACHINE WEDGER Temperature - - Respiratory Rate 20 10/12/2014 9:00 AM MACHINE WEDGER Oxygen Saturation - - Inhaled Oxygen Concentration - - Weight 124 kg (274 lb 7.6 oz) 10/12/2014 9:00 AM MACHINE WEDGER Height 164 cm (5' 4.57) 10/12/2014 9:00 AM MACHINE WEDGER Body Mass Index 46.29 10/12/2014 9:00 AM MACHINE WEDGER documented in this encounter Progress Notes Griselda Coleman L - 10/12/2014 8:45 AM CST [id number] CHIEF COMPLAINT/REASON FOR VISIT Discuss medications. HISTORY OF PRESENT ILLNESS Nancy is a 29-year-old female who presents to the clinic today to discuss medications. Primary care provider is Jenae Minor. Nancy states that she was not able to see Jenae until the end of [facility], and she actually has an appointment scheduled [...] She does see a therapist, Steven, in [place] every month or 2. She is currently [...] very interested in. Referral was made to [facility]. Prescription for phentermine given in [...] COLEMAN PA-C On: 12/28/2014 09:05 AM Source: [facility] MHSDOLBEYNONRADSYS Document Id: [id number] INE WEDGER documented in this encounter Nursing Notes Jeremy Contreras - 10/14/2014 8:46 AM CST REFERRAL PER GRISELDA COLEMAN REFERRAL TO [facility] FOR MORBID OBESITY / DISCUSS WT LOSS PROCEDURES SUBMITTED VIA OSRP. Electronically Signed By: JEREMY CONTRERAS On: 10/14/2014 08:48 AM [facility] Document Id: [id number] INE WEDGER documented in this encounter Miscellaneous Notes Miscellaneous - Danielle Duenas L.P.N. - 10/12/2014 10:16 AM CST PHQ-9 PHQ-9 Entered On: 10/12/2014 10:16 MACHINE WEDGER Performed On: 10/12/2014 10:16 MACHINE WEDGER by DANIELLE DUENAS LPN PHQ-9 Little interest [...] difficult DANIELLE DUENAS LPN - 10/12/2014 10:16 MACHINE WEDGER Source: [facility] POWERCHART Document Id: [id number] MACHINE WEDGER!13 INE WEDGER Miscellaneous - Griselda Coleman - 10/12/2014 9:50 AM CST Ambulatory Patient Summary [facility] [address] [facility] [place] [id number] Visit Information Name: NANCY ROBINS [facility] Number: [id number] Current Date: 10/12/2014 09:50:01 Physicians [...] caps PO Daily thereafter. New Routed to [place] [address] [place] [address] Stop Taking the Following Medications: Medication list [...] Appointments Date Time Location Provider 11/04/2014 10:45 [facility] Jenae Stein Attention: Contact your local Clinic if further appointment detail needed. Your Goals/Additional instructions: Source: [facility] POWERCHART Document Id: [id number] INE WEDGER Miscellaneous - Griselda Coleman - 10/12/2014 9:50 AM CST Ambulatory Discharge Medication List [facility] [address] [place] [id number] Visit Information Name: NANCY ROBINS [facility] Number: [id number] Visit Date: 10/12/2014 09:49:59 Attending [...] Oral, once a day New Routed to [place] venlafaxine (Effexor XR 37.5 mg oral capsule, extended release) See Instructions Take 1 cap PO Dailyx 1 week, then increase to 2 caps PO Daily thereafter. New Routed to [address] [address] Stop Taking the Following Medications: Medication list [...] PA-C Signed On:12-OCT-2014 09:49:52 Additional Information: Source: [facility] POWERCHART Document Id: [id number] INE WEDGER Miscellaneous - Danielle Duenas LRodrigoPRodrigoN. - 10/12/2014 9:00 AM CST Adult Supervisor Chemical Intake/History Adult Supervisor Chemical Intake/History Entered On: 10/12/2014 9:05 MACHINE WEDGER Performed On: 10/12/2014 9:00 MACHINE WEDGER by DANIELLE DUENAS LPN Intake Chief Complaint [...] kg/m2 DANIELLE DUENAS LPN - 10/12/2014 9:00 MACHINE WEDGER General Info Information Given By : Patient Languages : Armenian Is Patient Female and 13-50 no hysterectomy : Yes Status : Patient denies Are you ? : No DANIELLE DUENAS LPN - 10/12/2014 9:00 MACHINE WEDGER Subjective Pain Symptoms : No DANIELLE DUENAS LPN - 10/12/2014 9:00 MACHINE WEDGER Dependent Habits Tobacco Use/Currently Using : No Exposure to Tobacco Smoke : Other: never Smoking Status : Never smoker DANIELLE DUENAS LPN - 10/12/2014 9:00 MACHINE WEDGER Tobacco Use Grid Other Tobacco Frequency : never DANIELLE DUENAS LPN - 10/12/2014 9:00 MACHINE WEDGER Caffeine Use Grid Caffeine Use : Current Type : Soft drinks Frequency : Daily DANIELLE DUENAS LPN - 10/12/2014 9:00 MACHINE WEDGER ID Screen Travel Within Last 21 Days : No DANIELLE DUENAS LPN - 10/12/2014 9:00 MACHINE WEDGER [facility] POWER[facility] Document Id: [id number] MACHINE WEDGER!41 INE WEDGER Miscellaneous - Danielle Duenas L.P.NRodrigo - 10/12/2014 8:58 AM CST Health Assessment Health Assessment Entered On: 10/12/2014 9:00 MACHINE WEDGER Performed On: 10/12/2014 8:58 MACHINE WEDGER by DANIELLE DUENAS [facility] Health Assessment Complete Health Assessment Complete or Modified : Annual Health Assessment Annual Health Assessment Completed : Yes DANIELLE DUENAS LPN - 10/12/2014 8:58 MACHINE WEDGER Nutrition Weight Gain Amount : 48 kg Nutrition Risk Factors by History Adult : Unintentional weight loss greater than 10 lbs in last 6 months DANIELLE DUENAS [facility] - 10/12/2014 8:58 MACHINE WEDGER Functional Current Daily Living Assistance : None DANIELLE DUENAS [facility] - 10/12/2014 8:58 MACHINE WEDGER Dependent Habits Tobacco Use/Currently Using : No Exposure to Tobacco Smoke : Other: never Smoking Status : Never smoker DANIELLE DUENAS [facility] - 10/12/2014 8:58 MACHINE WEDGER Tobacco Use Grid Other Tobacco Frequency : never DANIELLE DUENAS [facility] - 10/12/2014 8:58 MACHINE WEDGER Caffeine Use Grid Caffeine Use : Current Type : Soft drinks Frequency : Daily DANIELLE DUENAS [facility] - 10/12/2014 8:58 MACHINE WEDGER Psychosocial Domestic Abuse Concerns : None Rastafari Preference : No qualifying data available. DANIELLE DUENAS [facility] - 10/12/2014 8:58 MACHINE WEDGER Advance Directive Advanced Directives : No Advance Directive Additional Information : No DANIELLE DUENAS [facility] - 10/12/2014 8:58 MACHINE WEDGER Educ Needs Learning Style Preference Adult Grid Patient : Video/Educational TV Family : None DANIELLE DUENAS [facility] - 10/12/2014 8:58 MACHINE WEDGER Source: [facility] POWERCHART Document Id: [id number] MACHINE WEDGER!31 INE WEDGER documented in this encounter Plan of Treatment Upcoming Encounters Date Type Specialty Care Team Description 08/17/2022 Procedure visit Neurology Marina Winter M.D., M.P.H. [address] [place] [phone] (Wo rk) Scheduled Procedures Name Priority Associated Diagnoses Date/Time LIFT THIGH Excessive And Redundant Skin And Subcutaneous Tissue documented as of this encounter Visit Diagnoses Not on filedocumented in this encounter Additional Health Concerns Assessment Noted Time PHQ-9 Depression Total Score: 10 10/12/2014 10:[address] documented as of this encounter
--- OUTSIDE RECORDS SUMMARY | 2022-07-25 09:16 | XMS_ITS | Encounter Summary ---
:1985 Author Organization [facility] Address [address] [place] [address] Care Team Providers Name Role Phone Unavailable Primary Care Provider Unavailable Encounter Details Date Type Department Care Team Description 10/24/2013 Hospital Encounter HX [facility] Grandalfred, Lizandro Olguin, P.A.-C., P.A. [address] [place], [place] [address] (Wo rk) Social History [...] How often do you attend jainism or uatsdin Never 07/04/2019 services? 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 documented as of this encounter Last Filed Vital Signs Vital Sign Reading Time Taken Comments Blood Pressure 122/78 10/24/2013 1:22 PM PLATER PRINTED CIRCUIT BOARD PANELS Pulse 72 10/24/2013 1:22 PM PLATER PRINTED CIRCUIT BOARD PANELS Temperature - - Respiratory Rate 16 10/24/2013 1:22 PM PLATER PRINTED CIRCUIT BOARD PANELS Oxygen Saturation - - Inhaled Oxygen Concentration - - Weight 104 kg (229 lb 4.5 oz) 10/24/2013 1:22 PM PLATER PRINTED CIRCUIT BOARD PANELS Height 163 cm (5' 4.17) 10/24/2013 1:22 PM PLATER PRINTED CIRCUIT BOARD PANELS Body Mass Index 39.14 10/24/2013 1:22 PM PLATER PRINTED CIRCUIT BOARD PANELS documented in this encounter Progress Notes Lexii Minor P.A.-C., Karla - 10/24/2013 1:10 PM CST [id number] CHIEF COMPLAINT/REASON FOR VISIT Refill phentermine, discuss [...] or concerns at this time. MEDICATIONS Reviewed [facility] EMR dated 10/24/2013 and no changes ALLERGIES No known drug allergies VITAL SIGNS Reviewed [facility] EMR dated 10/24/2013 and no changes HEIGHT: [...] MINOR PA-C On: 10/28/2013 12:59 PM Source: [facility] MHSDOLBEYNONRADSYS Document Id: [id number] ER PRINTED CIRCUIT BOARD PANELS documented in this encounter Miscellaneous Notes Miscellaneous - Chapis Davalos L.P.N. - 10/24/2013 1:22 PM PLATER PRINTED CIRCUIT BOARD PANELS Adult Research Administrator Intake/History Adult Research Administrator Intake/History Entered On: 10/24/2013 13:26 PLATER PRINTED CIRCUIT BOARD PANELS Performed On: 10/24/2013 13:22 PLATER PRINTED CIRCUIT BOARD PANELS by CHAPIS DAVALOS Intake Chief Complaint : [...] 39.14 kg/m2 CHAPIS DAVALOS - 10/24/2013 13:22 PLATER PRINTED CIRCUIT BOARD PANELS General Info Information Given By : Patient Languages : Malay CHAPIS DAVALOS - 10/24/2013 13:22 PLATER PRINTED CIRCUIT BOARD PANELS Subjective Pain Symptoms : No CHAPIS DAVALOS - 10/24/2013 13:22 PLATER PRINTED CIRCUIT BOARD PANELS Dependent Habits Tobacco Use/Currently Using : No Exposure to Tobacco Smoke : Other: never Smoking Status : Never smoker CHAPIS DAVALOS - 10/24/2013 13:22 PLATER PRINTED CIRCUIT BOARD PANELS Tobacco Use Grid Other Tobacco Frequency : never CHAPIS DAVALOS - 10/24/2013 13:22 PLATER PRINTED CIRCUIT BOARD PANELS Caffeine Use Grid Caffeine Use : Current Type : Soft drinks Frequency : Daily CHAPIS DAVALOS - 10/24/2013 13:22 PLATER PRINTED CIRCUIT BOARD PANELS Source: [facility] POWERCHART Document Id: [id number] PLATER PRINTED CIRCUIT BOARD PANELS!31 ER PRINTED CIRCUIT BOARD PANELS documented in this encounter Plan of Treatment Upcoming Encounters Date Type Specialty Care Team Description 08/17/2022 Procedure visit Neurology Marina Winter M.D., M.P.H. [address] [phone] (Wo rk) Scheduled Procedures Name Priority Associated Diagnoses Date/Time LIFT THIGH Excessive And Redundant Skin And Subcutaneous Tissue documented as of this encounter Visit Diagnoses Not on filedocumented in this encounter Additional Health Concerns Assessment Noted Time PHQ-9 Depression Total Score: 5 07/09/2013 9:08 AM CDT documented as of this encounter
--- OUTSIDE RECORDS SUMMARY | 2022-07-25 09:16 | XMS_ITS | Encounter Summary ---
:1985 Author Organization [facility] Address [address] [place] [address] Care Team Providers Name Role Phone Unavailable [...] How often do you attend congregation or jain Never 07/04/2019 services? 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 [address] [phone] (Wo rk) Scheduled Procedures Name Priority Associated Diagnoses Date/Time LIFT THIGH Excessive And Redundant Skin And Subcutaneous Tissue documented as of this encounter Visit Diagnoses Not on filedocumented in this encounter Additional Health Concerns Assessment Noted Time PHQ-9 Depression Total Score: 6 02/15/2015 4:18 PM CDT documented as of this encounter
--- OUTSIDE RECORDS SUMMARY | 2022-07-25 09:16 | XMS_ITS | Encounter Summary ---
:1985 Author Organization [facility] Address [address] [place] [address] Care Team Providers Name Role Phone Unavailable Primary Care Provider Unavailable Encounter Details Date Type Department Care Team Description 06/11/2015 Hospital Encounter HX [facility] Meche Montiel M.D. [address] [place] [phone] (Wo rk) Social History Tobacco [...] How often do you attend holiness or yarsanism Never 07/04/2019 services? 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 - 06/11/2015 9:34 AM CDT [id number] CHIEF COMPLAINT / REASON FOR VISIT Followup [...] 190/100 when she last checked it at [employer]. It is well-controlled today at 122/76, and [...] behalf by Sanam Lindsay, a trained medical professionals. The creation of this record is based on the scribe's personal observations and the provider's statements to them. This document has been checked and approved by the attending provider. Annemarie Montiel M.D./shannon Electronically Signed By: ANNEMARIE MONTIEL MD On: 07/02/2015 08:22 AM Source: [facility] MHSDOLBEYNONRADSYS Document Id: [id number] documented in this encounter Miscellaneous Notes Miscellaneous [...] One Kidney : No : No Previous [place] : No Other (document in Comments) : No CLIFFORD OVALLES LPN - 06/23/2015 16:32 CDT Previous Films : No Previous Films Requested Today : No CLIFFORD OVALLES LPN - 06/23/2015 16:32 CDT Source: [facility] POWERCHART Document Id: [id number] CDT!29 Miscellaneous - Annemarie Montiel M.D. - 06/16/2015 6:41 AM CDT Results Notification Document Contains Addenda Addendum by ANNEMARIE MONTIEL MD on 23 June 2015 19:15:19 CDT Orders placed for [place]. I am not sure how to do them in [place]. Addendum by CLIFFORD OVALLES LPN on 16 [...] wondering if everything can be done in [facility] or if she has to come back here. From: ANNEMARIE MONTIEL MD To: [facility] Nurse; Sent: 06/16/2015 06:41:29 CDT ! Show [...] Ab-Gallegos 8.1 IntU/ml (<9.0 - ) Source: [facility] POWERCHART Document Id: [id number] Bunny - Deb Purvis - 06/14/2015 3:56 [...] DEB PURVIS - 06/14/2015 15:56 CDT Source: [facility] POWERCHART Document Id: [id number] CDT!13 Bunny - Annemarie Montiel M.D. - 06/11/2015 10:56 AM CDT Work Excuse 11 June [address]IPS [address] [place] [phone] Dear NANCY PHILLIPS, You were examined in [...] manageher medical concerns. Sincerely, ANNEMARIE MONTIEL [address] [place] [address] [phone] Electronic Signature Electronically Signed By: ANNEMARIE MONTIEL MD On: 11 June 2015 This document has images extracted. Source: [facility] POWERCHART Document Id: [id number] Miscellaneous - Annemarie Montiel M.D. - 06/11/2015 10:54 AM CDT Ambulatory Patient Summary [address] [id number] Visit Information Name: JOSEPHINE PHILLIPSSSICA ELIZABETH [facility] Number: [id number] Current Date: 06/11/2015 10:54:50 Physicians [...] New dose Thisis a CHANGE Routed to [facility] [address] [facility] [address] Stop Taking the Following Medications: Medication list [...] have one. Go to [email or web address] and click on Create Your Account. Then, follow the directions to complete the online form. Youll be asked for your [facility] number which you can find at the top of this document. Your Goals/Additional instructions: Source: [facility] POWERCHART Document Id: [id number] Miscellaneous - Annemarie Montiel M.D. - 06/11/2015 10:54 AM CDT Ambulatory Discharge Medication List [facility] [address] [place] [phone] Visit Information Name: NANCY PHILLIPS [facility] Number: [id number] Visit Date: 06/11/2015 10:54:49 Attending [...] New dose Thisis a CHANGE Routed to [facility] [address] [place] [address] Stop Taking the Following Medications: Medication list [...] MD Signed On:11-JUN-2015 10:54:39 Additional Information: Source: [facility] POWERCHART Document Id: [id number] Miscellaneous - Clifford Ovalles LRodrigoP.N. - 06/11/2015 10:05 AM CDT Adult Sewer Intake/History Adult Sewer Intake/History Entered On: 06/11/2015 10:10 CDT Performed [...] Preferred Communication Mode : Verbal Languages : Greenlandic Is Patient Female and [...] Josee PRADEEP - 06/11/2015 10:05 CDT Source: [facility] POWERCHART Document Id: [id number] CDT!40 documented in this encounter Plan of Treatment Upcoming Encounters Date Type Specialty Care Team Description 08/17/2022 Procedure visit Neurology Marina Winter M.D., M.P.H. [address] [place] [phone] (Wo rk) Scheduled Procedures Name Priority [...] Negative POWERCHART MGDL Specific >=1.030 (A) POWERCHART [place], POCT, U pH, POCT, Urine 5.5 POWERCHART [...] M.D. LAB URINE ORDERABLES Performing Organization Address [facility] Code Phon e Number POWERCHART (ABNORMAL) BMP [...] POWERCHART MMOLL HXeGFR (MDRD) >60 >=60 POWERCHART [id number] eGFR >60 >=60 POWERCHART Black/ [id number] Russian Specimen (Source) Anatomical Collection Method Collection Time Re ceived Time Location / / Volume Laterality Blood 06/11/2015 11:06 AM CDT Annemarie Montiel M.D. LAB BLOOD ADD-ON Performing Organization Address City/State/ZIP Code Phon e Number POWERCHART Thyroperoxidase (TPO) Antibodies (06/11/2015 11:06 AM CDT) Patholo gist Method Time Signature Thyroperoxidase Ab, 8.1 <9.0 POWERCHART S INTUML Comment: Test Performed by: [place] [address] Mock Up Maker: Hardik Burroughs II, M.D., Ph.D. Specimen (Source) [...]
--- OUTSIDE RECORDS SUMMARY | 2022-07-25 09:16 | XMS_ITS | Encounter Summary ---
:1985 Author Organization [facility] Address [address] [place] [address] Care Team Providers Name Role Phone Unavailable Primary Care Provider Unavailable Encounter Details Date Type Department Care Team Description 02/17/2014 Hospital Encounter HX [facility] Grandalfred, Lizandro Olguin, P.A.-C., P.A. [address] [place], [place] [phone] (Wo rk) Social History [...] How often do you attend jew or amish Never 07/04/2019 services? 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 - 02/17/2014 11:06 AM CDT [id number] CHIEF COMPLAINT/REASON FOR VISIT Obesity, contraception. HISTORY [...] of a couple plastic surgeons in the [facility] area that she might consider a second opinion or consultation with. She has concerns about her Nexplanon. This was placed on 06/04/2013 in the left upper arm. She was not certain that she could feel both ends of the device; however on exam today I am able to clearly feel the Nexplanon device and it feels completely normal. MEDICATIONS Reviewed [facility] EMR dated 02/17/2014 and no changes. ALLERGIES No known drug allergies. VITAL SIGNS Reviewed [facility] EMR dated 02/17/2014 and no changes. PHYSICAL [...] [facility] surgery as well as [facility] Plastic surgery Department and Pl[facility] Surgery Center in [place]. She will check with them regarding consultation and willfollow up as needed. 1. Contraception management. PLAN: Reassurance was provided. The Nexplanon appears to be in appropriate position, and working well. Follow up as needed. Lexii Minor P.A.-C./pepe Electronically Signed By: LEXII MINOR PA-C On: 02/21/2014 01:21 PM Source: [facility] MHSDOLBEYNONRADSYS Document Id: [id number] documented in this encounter Miscellaneous Notes Miscellaneous [...] OG LPN - 02/18/2014 10:07 CDT Source: [facility] POWERCHART Document Id: [id number] CDT!13 Miscellaneous - Conversion, Historical Provider Ser - 02/17/2014 12:01 PM CDT Adult Power Transformer Repairer Intake/History Adult Power Transformer Repairer Intake/History Entered On: 02/17/2014 12:04 CDT Performed [...] Information Given By : Patient Languages : Panamanian AJAY OG LPN - 02/17/2014 12:01 CDT [...] OG LPN - 02/17/2014 12:01 CDT [facility] POWERCHART Document Id: [id number] CDT!33 documented in this encounter Plan of Treatment Upcoming Encounters Date Type Specialty Care Team Description 08/17/2022 Procedure visit Neurology Marina Winter M.D., M.P.H. [address] [place] [phone] (Wo rk) Scheduled Procedures Name Priority Associated Diagnoses Date/Time LIFT THIGH Excessive And Redundant Skin And Subcutaneous Tissue documented as of this encounter Visit Diagnoses Not on filedocumented in this encounter Additional Health Concerns Assessment Noted Time PHQ-9 Depression Total Score: 5 02/18/2014 10:07 AM CD T documented as of this encounter
--- OUTSIDE RECORDS SUMMARY | 2022-07-25 09:16 | XMS_ITS | Encounter Summary ---
:1985 Author Organization [facility] Address [address] [place] [address] Care Team Providers Name Role Phone Unavailable Primary Care Provider Unavailable Encounter Details Date Type Department Care Team Description 02/15/2015 Hospital Encounter HX [facility] FBHB FAMILYPRA Cedrick Lobo M.D. [address] [place], [place] [address] (Wo rk) Social History [...] How often do you attend taoism or mosque Never 07/04/2019 services? 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 - 02/15/2015 3:39 PM CDT [id number] A 29-year-old female with 2-day history of cough and chest discomfort, which provokes cough upon deep inspiration. Her was ill with a bronchitis a month ago. She has a young child with mild respiratory illness currently. 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 She is a nonsmoker. She does [...] LOBO MD On: 02/16/2015 08:05 AM Source: [facility] MHSDOLBEYNONRADSYS Document Id: [id number] documented in this encounter Nursing Notes Jules Lobo M.D. - 02/15/2015 3:53 PM [...] be told to take ibuprofen or other pgbo-nez-pfrismt medications. These help relieve inflammation in your [...] within 3 days of taking antibiotics ?? [id number] [place] [address]. All rights reserved. This information is not intended as a substitute for professional medical care. Always follow your healthcare professional's instructions. This document has images extracted. Please consider using [employer] for all your patient education needs. Source: [facility] POWERCHART Document Id: [id number] Jules Lobo M.D. - 02/15/2015 3:53 PM [...] be told to take ibuprofen or other dkgz-amp-votzjux medications. These help relieve inflammation in your [...] within 3 days of taking antibiotics ?? [id number] [facility] [address] [place] [address]. All rights reserved. This information is not intended as a substitute for professional medical care. Always follow your healthcare professional's instructions. This document has images extracted. Please consider using [employer] for all your patient education needs. Source: [employer] Document Id: [id number] documented in this encounter Miscellaneous Notes Miscellaneous [...] APRIL MISHRA - 02/15/2015 16:18 CDT Source: [employer] Document Id: [id number] CDT!13 Miscellaneous - Jules Lobo M.D. - 02/15/2015 3:53 PM CDT Ambulatory Patient Summary [address] [id number] Visit Information Name: NANCY PHILLIPS [facility] Number: [id number] Current Date: 02/15/2015 15:53:40 Physicians [...] directed x 5 day(s) New Routed to [address] [address] hydrOXYzine (Vistaril 25 mg oral capsule) 1 [...] be told to take ibuprofen or other bnld-hzx-fodlgrx medications. These help relieve inflammation in your [...] within 3 days of taking antibiotics ?? 4953-1633 [facility], [address] [place] [address]. All rights reserved. This information is not intended as a substitute for professional medical care. Always follow your healthcare professional's instructions. Your Goals/Additional instructions: This document has images extracted. Please consider using [employer] for all your patient education needs. Source: [facility] POWERCHART Document Id: [id number] Miscellaneous - Jules Lobo M.D. - 02/15/2015 3:53 PM CDT Ambulatory Discharge Medication List [id number] [place], [place] [id number] Visit Information Name: NANCY PHILLIPS [facility] Number: [id number] Visit Date: 02/15/2015 15:53:38 Attending [...] directed x 5 day(s) New Routed to [address] [address] hydrOXYzine (Vistaril 25 mg oral capsule) 1 [...] MD Signed On:15-FEB-2015 15:53:19 Additional Information: Source: [facility] POWERCHART Document Id: [id number] Miscellaneous - April Mishra L.PRodrigoN. - 02/15/2015 3:42 PM CDT Adult Clinical Operations Leader Intake/History Adult Clinical Operations Leader Intake/History Entered On: 02/15/2015 15:45 CDT Performed [...] Preferred Communication Mode : Verbal Languages : Malian Is Patient Female and 13-50 no hysterectomy [...] APRIL MISHRA - 02/15/2015 15:42 CDT Source: [employer] Document Id: [id number] CDT!48 documented in this encounter Plan of Treatment Upcoming Encounters Date Type Specialty Care Team Description 08/17/2022 Procedure visit Neurology Marina Winter M.D., M.P.H. [address] [phone] (Wo rk) Scheduled Procedures Name Priority Associated Diagnoses Date/Time LIFT THIGH Excessive And Redundant Skin And Subcutaneous Tissue documented as of this encounter Visit Diagnoses Not on filedocumented in this encounter Additional Health Concerns Assessment Noted Time PHQ-9 Depression Total Score: 6 02/15/2015 4:18 PM CDT documented as of this encounter
--- OUTSIDE RECORDS SUMMARY | 2022-07-25 09:16 | XMS_ITS | Encounter Summary ---
:1985 Author Organization [facility] Address [address] [place] [address] Care Team Providers Name Role Phone Unavailable Primary Care Provider Unavailable Encounter Details Date Type Department Care Team Description 08/06/2013 Hospital Encounter HX [facility] OWOC FAMILYPRA Grandalfred, Lizandro Olguin, P.A.-C., P.A. [address], [place] [address] (Wo rk) Social History [...] How often do you attend hindu or christian Never 07/04/2019 services? 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 - 08/06/2013 11:11 AM CDT [id number] CHIEF COMPLAINT/REASON FOR VISIT Refill phentermine, medication [...] concerns at this time. VITAL SIGNS Reviewed [facility] EMR dated 08/06/13 and no changes. PHYSICAL [...] LEXII MINOR On: 08/21/2013 07:08 AM Source: [facility] MHSDOLBEYNONRADSYS Document Id: [id number] documented in this encounter Miscellaneous Notes Miscellaneous [...] in the future. 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 [address] [phone] (Wo rk) Scheduled Procedures Name Priority Associated Diagnoses Date/Time LIFT THIGH Excessive And Redundant Skin And Subcutaneous Tissue documented as of this encounter Visit Diagnoses Not on filedocumented in this encounter Additional Health Concerns Assessment Noted Time PHQ-9 Depression Total Score: 5 07/09/2013 9:08 AM CDT documented as of this encounter
--- OUTSIDE RECORDS SUMMARY | 2022-07-25 09:16 | XMS_ITS | Encounter Summary ---
:1985 Author Organization [facility] Address [address] [place] [address] Care Team Providers Name Role Phone Unavailable Primary Care Provider Unavailable Encounter Details Date Type Department Care Team Description 04/20/2014 Hospital Encounter HX [facility] OWOC FAMILYPRA Grandalfred, Lizandro Olguin, P.A.-C., P.A. [address] [place], [place] [address] (Wo rk) Social History [...] How often do you attend sabianist or yarsani Never 07/04/2019 services? 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 - 04/20/2014 3:09 PM CDT [id number] CHIEF COMPLAINT/REASON FOR VISIT Back pain, complete [...] bladder pattern. No radicular symptoms. MEDICATIONS Reviewed [facility] EMR dated 04/20/2014 and no changes. ALLERGIES No known drug allergies. VITAL SIGNS Reviewed [facility] EMR dated 04/20/2014 and no changes. [...] son is undergoing some specialty evaluation at [facility] for behavior and developmental delays. At this [...] MINOR PA-C On: 04/24/2014 01:07 PM Source: [facility] MHSDOLBEYNONRADSYS Document Id: [id number] documented in this encounter Miscellaneous Notes Miscellaneous [...] in the future. Nadya Minor PA-C Source: [facility] POWERCHART Document Id: [id number] Electronically signed by Maria R [facility] Chemistry Technical Officer [id number] at 04/03/2017 2:32 AM CDT Miscellaneous - Marcela Pereyra L.PCiera - 04/20/2014 3:15 PM CDT Adult Wire Mesh Filter Fabricator Intake/History Adult Wire Mesh Filter Fabricator Intake/History Entered On: 04/20/2014 15:21 CDT Performed [...] Preferred Communication Mode : Verbal Languages : Kazakh MARCELA PEREYRA - 04/20/2014 15:15 CDT Subjective [...] MARCELA PEREYRA - 04/20/2014 15:15 CDT Source: [employer] Document Id: [id number] CDT!45 documented in this encounter Plan of Treatment Upcoming Encounters Date Type Specialty Care Team Description 08/17/2022 Procedure visit Neurology Marina Winter M.D., M.P.H. [address] [place] [phone] (Wo rk) Scheduled Procedures Name Priority Associated Diagnoses Date/Time LIFT THIGH Excessive And Redundant Skin And Subcutaneous Tissue documented as of this encounter Visit Diagnoses Not on filedocumented in this encounter Additional Health Concerns Assessment Noted Time PHQ-9 Depression Total Score: 5 02/18/2014 10:07 AM CD T documented as of this encounter
--- OUTSIDE RECORDS SUMMARY | 2022-07-25 09:16 | XMS_ITS | Encounter Summary ---
:1985 Author Organization [facility] Address [address] [place] [address] Care Team Providers Name Role Phone Unavailable Primary Care Provider Unavailable Encounter Details Date Type Department Care Team Description 09/15/2013 Hospital Encounter HX [facility] OWOC FAMILYPRA Grandalfred, Lizandro Olguin, P.A.-C., P.A. [address] [place], [place] [phone] (Wo rk) Social History [...] How often do you attend religion or uatsdin Never 07/04/2019 services? 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 HISTORY OF PRESENT ILLNESS Maria Alejandra is a 28-year-old female who presents today with several concerns. First of all she does havea history of migraine headache and has had a 2-day history of headache that just has not been relieved with her usual jble-ikr-xctygvb medications. She has found in the past [...] except as noted above. VITAL SIGNS Reviewed [facility] EMR dated 09/15/2013 and no changes. PHYSICAL [...] and weight loss is achieved. Ryne Minor P.A.-C./[facility] Electronically Signed By: RYNE MINOR On: 09/16/2013 05:51 PM Source: [facility] MHSDOLBEYNONRADSYS Document Id: [id number] ESS WORKER documented in this encounter Miscellaneous Notes Telephone Encounter - Joaquina Wiggins RCiera - 09/18/2013 1:58 PM CST pharmacy question Document Contains Addenda Addendum by MARTIN ESCOBAR on 19 September 2013 16:09 HARNESS WORKER per ryne minor, patient can try selsum blue otc. Patient informed. Will call back if needed Modified by and Electronically Signed by: MARTIN ESCOBAR On: 09/19/2013 04:09 PM From: JOAQUINA WIGGINS (OW [facility]) Sent: 09/18/2013 13:58:23 HARNESS WORKER Subject: pharmacy question Caller is: ( ) [...] back cell phone number ( ) Source: [facility] [employer] Document Id: [id number] ESS WORKER Miscellaneous - Ryne Minor PMichael.-C., P.A. - 09/16/2013 7:39 AM HARNESS WORKER Results Notification Document Contains Addenda Addendum by MARTIN ESCOBAR on 17 September 2013 10:44:26 HARNESS WORKER Patient informed Addendum by MARTIN ESCOBAR on 16 September 2013 09:17:34 HARNESS WORKER unable to leave message From: RYNE MINOR To: JACEY Minor Nurse; Sent: 09/16/2013 07:39:27 HARNESS WORKER ! Show up: 09/16/2013 13:39:27 [facility] Subject: Results Notification Actions: Notify patient of results Reminder Comments: Thyroid normal Results: Date Result Name Value Ref Range 09/15/2013 17:07 TSH 1.66 mIU/L (0.30 - 5.00) Source: [facility] [employer] Document Id: [id number] Miscellaneous - Conversion, Historical Provider Ser - 09/15/2013 4:03 PM HARNESS WORKER Adult Production Expert Intake/History Adult Production Expert Intake/History Entered On: 09/15/2013 16:07 HARNESS WORKER Performed On: 09/15/2013 16:03 HARNESS WORKER by ZORAN OLEARY Intake Chief Complaint : check up/ med refill. loosing alot of hair and feels as if she is balding.([facility]) Temperature Oral : 36.5 DegC(Converted to: [...] 105.1 kg ZORAN OLEARY - 09/15/2013 16:03 HARNESS WORKER General Info Information Given By : Patient Preferred Communication Mode : Verbal Languages : Nepali ZORAN OLEARY - 09/15/2013 16:03 HARNESS WORKER Subjective Pain Symptoms : No ZORAN OLEARY [facility] 09/15/2013 16:03 HARNESS WORKER Dependent Habits Tobacco Use/Currently Using : No Exposure to Tobacco Smoke : Other: never Smoking Status : Never smoker ZORAN OLEARY - 09/15/2013 16:03 HARNESS WORKER Tobacco Use Grid Other Tobacco Frequency : never ZORAN OLEARY [facility] 09/15/2013 16:03 HARNESS WORKER Caffeine Use Grid Caffeine Use : Current Type : Soft drinks Frequency : Daily ZORAN OLEARY - 09/15/2013 16:03 HARNESS WORKER Source: [facility] POWERCHART Document Id: [id number] HARNESS WORKER!33 documented in this encounter Plan of Treatment Upcoming Encounters Date Type Specialty Care Team Description 08/17/2022 Procedure visit Neurology Marina Winter M.D., M.P.H. [address] [phone] (Wo rk) Scheduled Procedures Name Priority Associated Diagnoses Date/Time LIFT THIGH Excessive And Redundant Skin And Subcutaneous Tissue documented as of this encounter Procedures Procedure Name Priority Date/Time Associated Diagnosis Comme nts THYROID-STIMULATING Routine 09/15/2013 5:07 PM Re sults for this HORMONE-SENSITIVE HARNESS WORKER procedure are in (S-TSH) the results section. documented in this encounter Results Thyroid-Stimulating Hormone-Sensitive (s-TSH) (09/15/2013 5:07 PM HARNESS WORKER) P athologist Signature TSH 1.66 0.30 - 5.00 POWERCHART (Thyrotropin) MIUL Specimen (Source) Anatomical Collection Method Collection Time Re ceived Time Location / / Volume Laterality Blood 09/15/2013 5:07 PM HARNESS WORKER Ryne Minor P.A.-C., P.A. LAB BLOOD ADD-ON Performing Organization Address City/State/ZIP Code Phon e Number POWERCHART documented in this encounter Visit Diagnoses Not on filedocumented in this encounter Additional Health Concerns Assessment Noted Time PHQ-9 Depression Total Score: 5 07/09/2013 9:08 AM CDT documented as of this encounter
--- OUTSIDE RECORDS SUMMARY | 2022-07-25 09:16 | XMS_ITS | Encounter Summary ---
:1985 Author Organization [facility] Address [address] [place] [address] Care Team Providers Name Role Phone Unavailable Primary Care Provider Unavailable Encounter Details Date Type Department Care Team Description 09/13/2015 Hospital Encounter HX NO MAPPING Olena Putnam M.D. [address] [place], [place] [phone] (Wo rk) Social History [...] How often do you attend moravian or pentecostalism Never 07/04/2019 services? 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 [address] [phone] (Wo rk) Scheduled Procedures Name Priority Associated Diagnoses Date/Time LIFT THIGH Excessive And Redundant Skin And Subcutaneous Tissue documented as of this encounter Visit Diagnoses Not on filedocumented in this encounter Additional Health Concerns Assessment Noted Time PHQ-9 Depression Total Score: 13 06/14/2015 3:56 PM CD T documented as of this encounter
--- OUTSIDE RECORDS SUMMARY | 2022-07-25 09:16 | XMS_ITS | Encounter Summary ---
:1985 Author Organization [facility] Address [address] [place] [address] Care Team Providers Name Role Phone Unavailable Primary Care Provider Unavailable Encounter Details Date Type Department Care Team Description 07/09/2013 Hospital Encounter HX [facility] OWOC FAMILYPRA Ирина Baird, ArnoldoA. [address] [place] [address] [place] [address] (Wo rk) Social History Tobacco Use Types [...] How often do you attend uatsdin or advent Never 07/04/2019 services? 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 HISTORY [...] been attending a options support group in [place] and had found that to be very [...] consider continuing with her support group in [place] if possible as she does feel that [...] COLEMAN PA-C On: 10/08/2013 06:27 PM Source: [facility] MHSDOLBEYNSHERINESYMarnie Document Id: [id number] LE WORKER documented in this encounter Miscellaneous Notes Miscellaneous - Ирина Coleman - 07/09/2013 6:25 PM CDT Ambulatory Patient Summary [facility] [address] [place] [address] Visit Information Name: NANCY ROBINS [facility] Number: [id number] Current Date: 07/09/2013 18:25:19 Physicians [...] No Appointments found Your Goals/Additional instructions: Source: [facility] POWERCHART Document Id: [id number] Miscellaneous - Ирина Coleman - 07/09/2013 6:25 PM CDT Ambulatory Depart Summary [facility] [address] [place] [address] Visit Information Name: NANCY ROBINS [facility] Number: [id number] Visit Date: 07/09/2013 18:25:18 Attending [...] provider for clarification. Additional Information: Source: [facility] POWERCHART Document Id: [id number] Miscellaneous - Conversion, Historical Provider Ser - 07/09/2013 3:15 PM CDT Adult Inventory Control Manager Intake/History Adult Inventory Control Manager Intake/History Entered On: 07/09/2013 15:17 CDT Performed [...] Preferred Communication Mode : Verbal Languages : East Timorese TOÑO FRAGA - 07/09/2013 15:15 CDT Subjective [...] TOÑO FRAGA - 07/09/2013 15:15 CDT Source: [employer] Document Id: [id number] CDT!36 Miscellaneous - Conversion, Historical Provider Ser [...] TOÑO FRAGA - 07/11/2013 9:08 CDT Source: [facility] [employer]CHART Document Id: [id number] CDT!12 documented in this encounter Plan of Treatment Upcoming Encounters Date Type Specialty Care Team Description 08/17/2022 Procedure visit Neurology Marina Winter M.D., M.P.H. [address] [place] [phone] (Wo rk) Scheduled Procedures Name Priority Associated Diagnoses Date/Time LIFT THIGH Excessive And Redundant Skin And Subcutaneous Tissue documented as of this encounter Visit Diagnoses Not on filedocumented in this encounter Additional Health Concerns Assessment Noted Time PHQ-9 Depression Total Score: 5 07/09/2013 9:08 AM CDT documented as of this encounter
--- OUTSIDE RECORDS SUMMARY | 2022-07-25 09:16 | XMS_ITS | Encounter Summary ---
:1985 Author Organization [facility] Address [address] [place] [address] Care Team Providers Name Role Phone Unavailable Primary Care Provider Unavailable Encounter Details Date Type Department Care Team Description 06/23/2013 Hospital Encounter HX MCHS FBCV Bryson Escobar Jr., M.D. [address] [place], [place] [phone] (Wo rk) Social History [...] often do you attend roman catholic or sabianism Never 07/04/2019 services? 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 - 06/23/2013 1:14 PM CDT [id number] CHIEF COMPLAINT/REASON FOR VISIT: visit. HISTORY OF [...] patient will contact the clinic with any COLLISION TECHNICIAN related questions and concerns. This document serves as a record of services personally performed by Bryson Hoang MD. It was created on their behalf by Maldonado Nick, a trained medical research tech. The creation of this record is based on the scribe's personal observations and the provider's statements to them. This document has been checked and approved by the attending provider. Bryson Hoang M.D./jonh Electronically Signed By: BRYSON HOANG MD On: 06/23/2013 02:57 PM Source: [facility] MHSDOLBEYNONRADSYS Document Id: [id number] documented in this encounter Procedure Notes Nicki Vaz, R.N. - 06/23/2013 1:29 PM CDT Hemoglobin POC Hemoglobin POC Entered On: 06/23/2013 13:29 CDT Performed On: 06/23/2013 13:29 CDT by NICKI PAIGE Hemoglobin POC Hgb POC : 12.7 gm/dL Site : Finger NICKI PAIGE - 06/23/2013 13:29 CDT Source: [facility] POWERCHART Document Id: [id number] CDT!4 documented in this encounter Miscellaneous Notes Miscellaneous - Bryson Hoang Jr., M.D. - 06/23/2013 1:43 PM CDT Ambulatory Patient Summary [facility] [address] [place] [address] Visit Information Name: NANCY ROBINS [facility] Number: [id number] Current Date: 06/23/2013 13:43:34 Physicians [...] No Appointments found Your Goals/Additional instructions: Source: [facility] POWERCHART Document Id: [id number] Miscellaneous - Bryson Hoang Jr., M.D. - 06/23/2013 1:43 PM CDT [place] [address] Visit Information Name: NANCY ROBINS [facility] Number: [id number] Visit Date: 06/23/2013 13:43:33 Attending [...] your provider for clarification. Additional Information: Source: [facility] [employer] Document Id: [id number] Miscellaneous - Nicki Vaz RRodrigoNRodrigo - 06/23/2013 1:21 PM CDT Adult Diamond Saw Operator Intake/History Adult Diamond Saw Operator Intake/History Entered On: 06/23/2013 13:23 CDT Performed [...] 06/23/2013 13:21 CDT General Info Languages : Prydeinig NICKI PAIGE - 06/23/2013 13:21 CDT Subjective [...] NICKI PAIGE - 06/23/2013 13:21 CDT Source: [facility] [employer] Document Id: [id number] CDT!27 documented in this encounter Plan of Treatment Upcoming Encounters Date Type Specialty Care Team Description 08/17/2022 Procedure visit Neurology Marina Winter M.D., M.P.H. [address], [place] [phone] (Wo rk) Scheduled Procedures [...]
--- OUTSIDE RECORDS SUMMARY | 2022-07-25 09:16 | XMS_ITS | Encounter Summary ---
:1985 Author Organization [facility] Address [address] [place] [address] Care Team Providers Name Role Phone Unavailable Primary Care Provider Unavailable Encounter Details Date Type Department Care Team Description 11/17/2013 Hospital Encounter [facility] [address] [facility] [address] [address] (Wo rk) Social History Tobacco Use Types [...] How often do you attend mosque or mormonism Never 07/04/2019 services? 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 - 11/17/2013 9:49 AM CST [id number] Reason for visit is concern regarding excessive [...] to burn calories. I specifically recommended the [employer] workout application to show her how to do low-impact calisthenic exercises that can help burn calories. Today we have planned for a 3-month followup for a check on her weight and BMI and to encourage her to continue to lose weight. Ovidio is not able to lose weight using self-monitoring means [facility]. Length of today's visit was 15 minutes. Indiana Hanna M.D./mercedes Electronically Signed By: INDIANA HANNA On: 11/18/2013 10:40 AM Source: [facility] MHSDOLBEYNONRADSYS Document Id: [id number] GER STRATEGY documented in this encounter Miscellaneous Notes Miscellaneous - Indiana Hanna M.D. - 11/17/2013 11:09 AM CST Ambulatory Patient Summary [address] [address] Visit Information Name: JOSEPHINE ROBINSSSICA ELIZABETH [facility] Number: [id number] Current Date: 11/17/2013 11:09:37 Physicians [...] [facility] POWERCHART Document Id: [id number] GER STRATEGY Miscellaneous - Indiana Hanna M.D. - 11/17/2013 11:09 AM CST Ambulatory Depart Summary [facility] [address] [place] [address] Visit Information Name: FRITZ ROBINSMARIEL ORANTESE [facility] Number: [id number] Visit Date: 11/17/2013 11:09:25 Attending [...] in case of emergency. Additional Information: Source: [facility] POWERCHART Document Id: [id number] GER STRATEGY Miscellaneous - Slava Hartmann, RRodrigoN. 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 Adult Asbestos Coverer Intake/History Entered On: 11/17/2013 10:12 MANAGER STRATEGY Performed On: 11/17/2013 10:08 MANAGER STRATEGY by SLAVA HARTMANN Intake Chief Complaint : [...] Body Mass Index : 39.02 kg/m2 SLAVA HARTAMNN - 11/17/2013 10:08 MANAGER STRATEGY General Info Information Given By : Patient Languages : Togolese SLAVA HARTMANN - 11/17/2013 10:08 MANAGER STRATEGY Subjective Pain Symptoms : No SLAVA HARTMANN - 11/17/2013 10:08 MANAGER STRATEGY Dependent Habits Tobacco Use/Currently Using : Yes Exposure to Tobacco Smoke : Other: never Smoking Status : Never smoker SLAVA HARTMANN - 11/17/2013 10:08 MANAGER STRATEGY Tobacco Use Grid Other Tobacco Frequency : never SLAVA HARTMANN - 11/17/2013 10:08 MANAGER STRATEGY Caffeine Use Grid Caffeine Use : Current Type : Soft drinks Frequency : Daily SLAVA HARTMANN - 11/17/2013 10:08 MANAGER STRATEGY Source: [email or web address] POWERCHART Document Id: [id number] MANAGER STRATEGY!33 GER STRATEGY documented in this encounter Plan of Treatment Upcoming Encounters Date Type Specialty Care Team Description 08/17/2022 Procedure visit Neurology Marina Winter M.D., M.P.H. [address] [phone] (Wo rk) Scheduled Procedures Name Priority Associated Diagnoses Date/Time LIFT THIGH Excessive And Redundant Skin And Subcutaneous Tissue documented as of this encounter Visit Diagnoses Not on filedocumented in this encounter Additional Health Concerns Assessment Noted Time PHQ-9 Depression Total Score: 5 07/09/2013 9:08 AM CDT documented as of this encounter
--- OUTSIDE RECORDS SUMMARY | 2022-07-25 09:17 | XMS_ITS | Encounter Summary ---
:1985 Author Organization [facility] Address [address] [place] [address] Care Team Providers Name Role Phone Unavailable Primary Care Provider Unavailable Encounter Details Date Type Department Care Team Description 05/07/2013 Hospital Encounter [facility]X [facility] Steve Dupont M.D. [address] [place] [address] (Wo rk) Social History Tobacco Use Types [...] How often do you attend lutheran or anabaptism Never 07/04/2019 services? 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 - 05/07/2013 9:01 AM CDT [id number] CHIEF COMPLAINT/REASON FOR VISIT OB check. HISTORY [...] DIAZ MD On: 05/13/2013 07:25 AM Source: [facility] MHSDOLBEYNONRADSYS Document Id: [id number] documented in this encounter Miscellaneous Notes Miscellaneous - Aidan Diaz M.D. - 05/07/2013 9:38 AM CDT Ambulatory Patient Summary [facility] [address] [place] [address] Visit Information Name: NANCY ROBINS [facility] Number: [id number] Current Date: 05/07/2013 09:38:08 Physicians [...] No Appointments found Your Goals/Additional instructions: Source: [facility] [employer]CHART Document Id: [id number] Miscellaneous - Aidan Diaz M.D. - 05/07/2013 9:38 AM CDT Ambulatory [place] [address] Visit Information Name: NANCY ROBINS [facility] Number: [id number] Visit Date: 05/07/2013 09:38:07 Attending Provider: AIDAN DIAZ MD Primary Care Provider: LEXII MINOR NANCY [...] your provider for clarification. Additional Information: Source: [facility] [employer] Document Id: [id number] Miscellaneous - Conversion, Historical Provider Ser - 05/07/2013 9:12 AM CDT Adult Travel Pt Intake/History Adult Travel Pt Intake/History Entered On: 05/07/2013 9:13 CDT Performed [...] By : Patient Languages : Citizen Of [place] ABE MAYES LPN 05/07/2013 9:12 CDT Subjective Pain Symptoms : No ABE MAYES LPN - 05/07/2013 9:12 CDT Dependent Habits Tobacco Use/Currently Using : No Exposure to Tobacco Smoke : Other: never Smoking Status : Never smoker ABE MAYES LPN 05/07/2013 9:12 CDT Tobacco Use Grid Other Tobacco Frequency : never ABE MAYES LPN - 05/07/2013 9:12 CDT Alcohol Use : No ABE MAYES LPN 05/07/2013 9:12 CDT Caffeine Use Grid Caffeine Use : Current Type : Soft drinks Frequency : Daily ABE MAYES LPN 05/07/2013 9:12 CDT Source: [employer] Document Id: [id number] CDT!29 documented in this encounter Plan of Treatment Upcoming Encounters Date Type Specialty Care Team Description 08/17/2022 Procedure visit Neurology Marina Winter M.D., M.P.H. [address] [phone] (Wo rk) Scheduled Procedures Name Priority Associated Diagnoses Date/Time LIFT THIGH Excessive And Redundant Skin And Subcutaneous Tissue documented as of this encounter Visit Diagnoses Not on filedocumented in this encounter Additional Health Concerns Assessment Noted Time PHQ-9 Depression Total Score: 17 05/07/2012 1:10 PM CD T documented as of this encounter
--- OUTSIDE RECORDS SUMMARY | 2022-07-25 09:17 | XMS_ITS | Encounter Summary ---
:1985 Author Organization [facility] Address [address] [place] [address] Care Team Providers Name Role Phone Unavailable [...] How often do you attend yarsanism or yarsani Never 07/04/2019 services? 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 - 02/26/2013 1:19 PM CDT [id number] CHIEF COMPLAINT / REASON FOR VISIT care. [...] I have asked her to see the phone engineer and an appointment is scheduled for that [...] this anddid make an appointment with the phone engineer. VITAL SIGNS BLOOD PRESSURE: 122/68. WEIGHT: 128.9 kilograms, this is a 1.1 kilogram decrease from her last visit. Fundal height 29 cm. The infant is vertex by Tarik maneuvers with heart tones appreciated inthe 150s in the right lower quadrant. IMPRESSION / REPORT / PLAN 1. Intrauterine . 2. Previous section. 3. Gestational diabetes. PLAN: As mentioned the patient will see the phone engineer. Strict control is stressed and the patient isto call if she is not meeting the goals so that we can determine whether we should proceed with oralhypoglycemic therapy. Sulema Call M.D./bertha cc: Labor and Delivery Electronically Signed By: SULEMA CALL MD On: 02/27/2013 12:41 PM Source: [facility] MHSDOLBEYNONRADSYS Document Id: [id number] documented in this encounter Miscellaneous Notes Miscellaneous - Sulema Call M.D. 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 - 02/26/2013 1:47 PM CDT Ambulatory Depart Summary [facility] [address] [place] [address] Visit Information Name: NANCY ROBINS [facility] Number: [id number] Visit Date: 02/26/2013 13:47:07 Attending [...] your provider for clarification. Additional Information: Source: [facility] [employer] Document Id: [id number] Miscellaneous - Conversion, Historical Provider Ser - 02/26/2013 1:30 PM CDT Adult Shot Tube Machine Tender Intake/History Adult Shot Tube Machine Tender Intake/History Entered On: 02/26/2013 13:33 CDT Performed [...] Given By : Patient Languages : Icelandic JOSE CARLOS MIKE - 02/26/2013 13:30 CDT [...] CARLOS MIKE - 02/26/2013 13:30 CDT Source: [facility] [employer] Document Id: [id number] CDT!29 documented in this encounter Plan of Treatment Upcoming Encounters Date Type Specialty Care Team Description 08/17/2022 Procedure visit Neurology Marina Winter M.D., M.P.H. [address] [phone] (Wo rk) Scheduled Procedures Name Priority Associated Diagnoses Date/Time LIFT THIGH Excessive And Redundant Skin And Subcutaneous Tissue documented as of this encounter Visit Diagnoses Not on filedocumented in this encounter Additional Health Concerns Assessment Noted Time PHQ-9 Depression Total Score: 17 05/07/2012 1:10 PM CD T documented as of this encounter
--- OUTSIDE RECORDS SUMMARY | 2022-07-25 09:17 | XMS_ITS | Encounter Summary ---
:1985 Author Organization [facility] Address [address] [place] [address] Care Team Providers Name Role Phone Unavailable Primary Care Provider Unavailable Encounter Details Date Type Department Care Team Description 06/04/2013 Hospital Encounter HX [facility] Bryson Escobar Jr., M.D. [address] [place], [place] [phone] (Wo rk) [...] How often do you attend adventism or orthodoxy Never 07/04/2019 services? 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 - 06/04/2013 3:31 PM CDT [id number] CHIEF COMPLAINT/REASON FOR VISIT: Nexplanon insertion HISTORY [...] She will contact the clinic with any BULB INSPECTOR related questions and concerns. This document serves as a record of services personally performed by Bryson Hoang MD. It was created on their behalf by Maldonado Nick, a trained medical laboratory technologist. The creation of this record is based on the scribe's personal observations and the provider's statements to them. This document has been checked and approved by the attending provider. Bryson Hoang M.D./jonh Electronically Signed By: BRYSON HOANG MD On: 06/04/2013 04:16 PM Source: [facility] MHSDOLBEYNONRADSYS Document Id: [id number] documented in this encounter Miscellaneous Notes Miscellaneous - Bryson Hoang Jr., M.D. - 06/04/2013 3:52 PM CDT Ambulatory Patient Summary [facility] [address] [place] [address] Visit Information Name: NANCY ROBINS [facility] Number: [id number] Current Date: 06/04/2013 15:52:03 [...] Time Location Reason Provider 06/11/2013 13:15 [facility] like to [facility]termine Griselda Mckeon PA-C 06/23/2013 13:30 FBCV BULB INSPECTOR post Bryson Hoang MD Your Goals/Additional instructions: Source: [facility] POWERCHART Document Id: [id number] Miscellaneous - Bryson Hoang Jr., M.D. - 06/04/2013 3:52 PM CDT Amb[place] [address] Visit Information Name: NANCY ROBINS [facility] Number: [id number] Visit Date: 06/04/2013 15:52:03 [...] Additional Information: [facility] Document Id: [id number] Miscellaneous - Nicki Vaz R.N. 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 [address] [phone] (Wo rk) Scheduled Procedures Name Priority Associated Diagnoses Date/Time LIFT THIGH Excessive And Redundant Skin And Subcutaneous Tissue documented as of this encounter Visit Diagnoses Not on filedocumented in this encounter Additional Health Concerns Assessment Noted Time PHQ-9 Depression Total Score: 17 05/07/2012 1:10 PM CD T documented as of this encounter
--- OUTSIDE RECORDS SUMMARY | 2022-07-25 09:17 | XMS_ITS | Encounter Summary ---
:1985 Author Organization [facility] Address [address] [place] [address] Care Team Providers Name Role Phone Unavailable [...] How often do you attend alevism or shinto Never 07/04/2019 services? 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 [address] [phone] (Wo rk) Scheduled Procedures Name Priority Associated Diagnoses Date/Time LIFT THIGH Excessive And Redundant Skin And Subcutaneous Tissue documented as of this encounter Visit Diagnoses Not on filedocumented in this encounter Additional Health Concerns Assessment Noted Time PHQ-9 Depression Total Score: 17 05/07/2012 1:10 PM CD T documented as of this encounter
--- OUTSIDE RECORDS SUMMARY | 2022-07-25 09:17 | XMS_ITS | Encounter Summary ---
:1985 Author Organization [facility] Address [address] [place] [address] Care Team Providers Name Role Phone Unavailable Primary Care Provider Unavailable Encounter Details Date Type Department Care Team Description 04/11/2013 Hospital Encounter [facility]X [facility] Bryson Escobar Jr., M.D. [address] [place], [place] [phone] (Wo rk) Social History [...] How often do you attend restoration or protestant Never 07/04/2019 services? 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 - 04/11/2013 1:46 PM CDT [id number] CHIEF COMPLAINT/REASON FOR VISIT: OB visit. HISTORY [...] 1999 Tonsillectomy and adenoidectomy, 1994 Cholecystectomy, 2005. SILK HANGER HISTORY Chlamydia with last . No history [...] weeks and will contact the clinic with anyOB/SHANK RANDER related questions and concerns prior to this time. This document serves as a record of services personally performed by Bryson Hoang MD. It was created on their behalf by Maldonado Nick, a trained medical imaging director. The creation of this record is based on the scribe's personal observations and the provider's statements to them. This document has been checked and approved by the attending provider. Bryson Hoang M.D./jonh Electronically Signed By: BRYSON HOANG MD On: 04/11/2013 04:25 PM Source: [facility] MHSDOLBEYNONRADSYS Document Id: [id number] documented in this encounter Miscellaneous Notes Miscellaneous - Bryson Hoang Jr., M.D. - 04/11/2013 2:08 PM CDT Ambulatory Patient Summary [facility] [address] [place] [address] Visit Information Name: NANCY ROBINS [facility] Number: [id number] Current Date: 04/11/2013 14:08:32 Physicians [...] Appointments found Your Goals/Additional instructions: Source: [facility] POWERCHART Document Id: [id number] Miscellaneous - Bryson Hoang Jr., M.D. - 04/11/2013 2:08 PM CDT [place] [address] Visit Information Name: NANCY ROBINS [facility] Number: [id number] Visit Date: 04/11/2013 14:08:32 Attending [...] your provider for clarification. Additional Information: Source: [facility] POWERCHART Document Id: [id number] Miscellaneous - Nicki Vaz, R.N. - 04/11/2013 1:53 PM CDT Adult Energy Specialist Intake/History Adult Energy Specialist Intake/History Entered On: 04/11/2013 13:53 CDT [...] 04/11/2013 13:53 CDT General Info Languages : Sinhala NICKI PAIGE - 04/11/2013 13:53 CDT Subjective [...] NICKI PAIGE - 04/11/2013 13:53 CDT Source: [facility] POWERCHART Document Id: [id number] CDT!26 documented in this encounter Plan of Treatment Upcoming Encounters Date Type Specialty Care Team Description 08/17/2022 Procedure visit Neurology Marina Winter M.D., M.P.H. [address] [phone] (Wo rk) Scheduled Procedures Name Priority [...] (S. Agalactiae) Culture (04/11/2013 2:15 PM CDT) [facility] Method Time Signature Grp B Strep POWERCHART (S. agalactiae) Culture HXFinal See POWERCHART scanned/paper report. Test performed at [facility]. Specimen (Source) Anatomical Collection Method Collection Time [...]
--- OUTSIDE RECORDS SUMMARY | 2022-07-25 09:17 | XMS_ITS | Encounter Summary ---
:1985 Author Organization [facility] Address [address] [place] [address] Care Team Providers Name Role Phone Unavailable Primary Care Provider Unavailable Encounter Details Date Type Department Care Team Description 03/28/2013 Hospital Encounter [facility]X [facility] Yves Escobar Jr., M.D. [address] [place], [place] [phone] (Wo rk) Social History [...] How often do you attend faith or congregation Never 07/04/2019 services? 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 - 03/28/2013 2:46 PM CDT [id number] CHIEF COMPLAINT/REASON FOR VISIT: Transfer of care, [...] She bottle feeds. She recently moved to [place]. She has been testing her blood sugars, fasting 90-100, her after eating blood sugars have been 135 at the highest. movement has been good and she reports that she was counseled on movement counts in [place]. She had her first section for arrest [...] weeks and will contact the clinic with anyOB/FOOD QUALITY TESTER related questions and concerns prior to this time. This document serves as a record of services personally performed by Yves Hoang MD. It was created on their behalf by Maldonado Nick, a trained medical numerical control operator. The creation of this record is based on the scribe's personal observations and the provider's statements to them. This document has been checked and approved by the attending provider. Yves Hoang M.D./jonh Electronically Signed By: YVES HOANG MD On: 03/28/2013 05:55 PM Source: [facility] MHSDOLBEYNONRADSYS Document Id: [id number] documented in this encounter Miscellaneous Notes Miscellaneous - Yves Hoang Jr., M.D. - 03/28/2013 3:36 PM CDT [place] [address] Visit Information Name: JOSEPHINE ROBINSSSMARIEL ORANTESE [facility] Number: [id number] Visit Date: 03/28/2013 15:36:55 Attending [...] your provider for clarification. Additional Information: Source: [facility] POWERCHART Document Id: [id number] Miscellaneous - Yves Hoang Jr., M.D. - 03/28/2013 3:36 PM CDT [place] [address] Visit Information Name: NANCY ROBINS [facility] Number: [id number] Current Date: 03/28/2013 15:36:56 Physicians [...] No Appointments found Your Goals/Additional instructions: Source: [facility] POWERCHART Document Id: [id number] Miscellaneous - Lisa Vaz RRodrigoNRodrigo - 03/28/2013 3:13 PM CDT Adult Tick Eradicator Intake/History Adult Tick Eradicator Intake/History Entered On: 03/28/2013 15:15 CDT Performed [...] 03/28/2013 15:13 CDT General Info Languages : Kosovan LISA PAIGE - 03/28/2013 15:13 CDT Subjective [...] LISA PAIGE - 03/28/2013 15:13 CDT Source: [facility] [employer] Document Id: [id number] CDT!26 documented in this encounter Plan of Treatment Upcoming Encounters Date Type Specialty Care Team Description 08/17/2022 Procedure visit Neurology Marina Winter M.D., M.P.H. [address] [phone] (Wo rk) Scheduled Procedures Name Priority Associated Diagnoses Date/Time LIFT THIGH Excessive And Redundant Skin And Subcutaneous Tissue documented as of this encounter Visit Diagnoses Not on filedocumented in this encounter Additional Health Concerns Assessment Noted Time PHQ-9 Depression Total Score: 17 05/07/2012 1:10 PM CD T documented as of this encounter
--- OUTSIDE RECORDS SUMMARY | 2022-07-25 09:17 | XMS_ITS | Encounter Summary ---
:1985 Author Organization [facility] Address [address] [place] [address] Care Team Providers Name Role Phone Unavailable Primary Care Provider Unavailable Encounter Details Date Type Department Care Team Description 01/01/2013 Hospital Encounter [facility]X [facility] Gonzales M.D. [address] [place] [address] (Wo rk) Social History Tobacco [...] How often do you attend evangelical or restoration Never 07/04/2019 services? 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 [address] [place] [phone] (Wo rk) Scheduled Procedures Name Priority Associated Diagnoses Date/Time LIFT THIGH Excessive And Redundant Skin And Subcutaneous Tissue documented as of this encounter Procedures Procedure Name Priority Date/Time Associated Diagnosis Comme nts US OB GREATER THAN Routine 01/01/2013 2:02 PM Res ults for this 14 WEEKS SHELTER ADVOCATE procedure are i n the results section. documented in this encounter Results US OB Greater than 14 weeks (01/01/2013 2:02 PM SHELTER ADVOCATE) Anatomical Region Laterality Modality Ultrasound Specimen (Source) Anatomical Collection Method Collection Time Re ceived Time Location / / Volume Laterality 01/01/2013 2:02 PM SHELTER ADVOCATE Addenda Addendum by Provider, Ella Moreno 01/01/2013 2:02 PM SHELTER ADVOCATE RAD^^^OW US OB Greater than 14 weeks 01/01/2013 14:02:31 Impressions 01/01/2013 4:45 PM SHELTER ADVOCATE 1. Viable with AGA of 20 weeks [...] congenital heart defects. Narrative 01/01/2013 4:45 PM SHELTER ADVOCATE EXAM: US OB Greater than 14 weeks [...]
--- OUTSIDE RECORDS SUMMARY | 2022-07-25 09:17 | XMS_ITS | Encounter Summary ---
:1985 Author Organization [facility] Address [address] [place] [address] Care Team Providers Name Role Phone Unavailable [...] How often do you attend mandaen or hinduism Never 07/04/2019 services? 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 - 11/20/2012 2:04 PM CST [id number] CHIEF COMPLAINT / REASON FOR VISIT First visit. HISTORY OF PRESENT ILLNESS Nancy is a 27-year-old 4, para 2 with 2 previous C-sections, both done in [place], one in 2004, complicated by gestational diabetes [...] CALL MD On: 11/22/2012 04:24 PM [facility] Document Id: [id number] M AND POWER SUPERVISOR documented in this encounter Nursing Notes Maria [...] CARLOS MIKE On: 11/06/2012 12:31 PM Source: [facility] POWERCHART Document Id: [id number] documented in this encounter Miscellaneous Notes Miscellaneous - Sulema Call M.D. - 11/20/2012 4:42 PM CST Ambulatory Patient Summary [address] [address] Visit Information Name: NANCY ROBINS [facility] Number: [id number] Current Date: 11/20/2012 16:42:22 Physicians [...] Time Location Reason Provider 12/18/2012 13:45 OWOC BULK CLERK ob check Sulema Call MD 01/01/2013 14:00 OWOC BULK CLERK survey 01/01/2013 15:00 OWOC BULK CLERK ob check Sulema Call MD Your Goals/Additional instructions: Source: [facility] POWERCHART Document Id: [id number] M AND POWER SUPERVISOR Miscellaneous - Sulema Call M.D. - 11/20/2012 4:42 PM CST Ambulatory Depart Summary [facility] [address] [place] [address] Visit Information Name: NANCY ROBINS [facility] Number: [id number] Visit Date: 11/20/2012 16:42:21 Attending [...] provider for clarification. Additional Information: Source: [facility] POWERCHART Document Id: [id number] M AND POWER SUPERVISOR Miscellaneous - Conversion, Historical Provider Ser - 11/20/2012 2:19 PM STEAM AND POWER SUPERVISOR Adult Customer Trainer Intake/History Adult Customer Trainer Intake/History Entered On: 11/20/2012 14:22 STEAM AND POWER SUPERVISOR Performed On: 11/20/2012 14:19 STEAM AND POWER SUPERVISOR by JOSE CARLOS MIKE Intake Chief Complaint [...] 130.70kg JOSE CARLOS MIKE - 11/20/2012 14:19 STEAM AND POWER SUPERVISOR Subjective Pain Symptoms : No JOSE CARLOS MIKE 11/20/2012 14:19 STEAM AND POWER SUPERVISOR Dependent Habits Tobacco Use/Currently Using : No Exposure to Tobacco Smoke : Other: never Smoking Status : Never smoker JOSE CARLOS MIKE - 11/20/2012 14:19 STEAM AND POWER SUPERVISOR Tobacco Use Grid Other Tobacco Frequency : never JOSE CARLOS MIKE 11/20/2012 14:19 STEAM AND POWER SUPERVISOR Caffeine Use Grid Caffeine Use : Current Type : Soft drinks Frequency : Daily JOSE CARLOS MIKE 11/20/2012 14:19 STEAM AND POWER SUPERVISOR Allergy Allergies (Active) NKA Estimated Onset Date: Unspecified ; Created By: CECIL ALEGRIA LPN; Reaction Status: Active ; Category: Drug ; Substance: NKA ; Type: Allergy ; Updated By: CECIL ALEGRIA LPN; Reviewed Date: 10/08/2012 8:49 STEAM AND POWER SUPERVISOR Source: [facility] Document Id: [id number] documented in this encounter Plan of Treatment Upcoming Encounters Date Type Specialty Care Team Description 08/17/2022 Procedure visit Neurology Marina Winter M.D., M.P.H. [address] [place] [address] [phone] (Wo rk) Scheduled Procedures Name Priority Associated Diagnoses Date/Time LIFT THIGH Excessive And Redundant Skin And Subcutaneous Tissue documented as of this encounter Procedures Procedure Name Priority Date/Time Associated Diagnosis Comme nts N GONOR AMP SRC Routine 11/20/2012 4:24 PM Result s for this STEAM AND POWER SUPERVISOR procedure are i n the results section. N GONOR AMP DNA Routine 11/20/2012 4:24 PM Result s for this STEAM AND POWER SUPERVISOR procedure are i n the results section. C TRACH AMP SRC Routine 11/20/2012 4:24 PM Result s for this STEAM AND POWER SUPERVISOR procedure are i n the results section. C TRACH AMP RNA Routine 11/20/2012 4:24 PM Result s for this STEAM AND POWER SUPERVISOR procedure are i n the results section. PATHOLOGY TIRE BUFFER Routine 11/20/2012 12:00 AM Results for this CYTOLOGY STEAM AND POWER SUPERVISOR procedure are i n the results section. documented in this encounter Results HX-N gonor Amp DNA (11/20/2012 4:24 PM STEAM AND POWER SUPERVISOR) athologist Signature HXN gonor Amp Negative POWERCHART DNA-[place] Specimen (Source) Anatomical Collection Method Collection Time Re ceived Time Location / / Volume Laterality 11/20/2012 4:24 PM STEAM AND POWER SUPERVISOR Narrative POWERCHART - 11/21/2012 4:23 PM STEAM AND POWER SUPERVISOR Test Performed by: [facility] [place] [address] Anode Adjuster: Federico anne III, M.D. Sulema Call M.D. LAB HISTORICAL ORDERS Performing Organization Address City/State/ZIP Code Phon e Number POWERCHART HX-N gonor Amp Src (11/20/2012 4:24 PM STEAM AND POWER SUPERVISOR) athologist Signature HXN gonor Amp [place]ERVIX POWERCHART Src-[place] Specimen (Source) Anatomical Collection Method Collection Time Re ceived Time Location / / Volume Laterality 11/20/2012 4:24 PM STEAM AND POWER SUPERVISOR Sulema Call M.D. LAB HISTORICAL ORDERS Performing Organization Address City/State/ZIP Code Phon e Number POWERCHART HX-C trach Amp RNA (11/20/2012 4:24 PM STEAM AND POWER SUPERVISOR) Patholo gist Method Time Signature Chlamydia Negative POWERCHART trachomatis amplified RNA Specimen (Source) Anatomical Collection Method Collection Time Re ceived Time Location / / Volume Laterality 11/20/2012 4:24 PM STEAM AND POWER SUPERVISOR Sulema Call M.D. LAB HISTORICAL ORDERS Performing Organization Address City/State/ZIP Code Phon e Number POWERCHART HX-C trach Amp Src (11/20/2012 4:24 PM STEAM AND POWER SUPERVISOR) P athologist Signature HXC trach Amp CERVIX POWERCHART Src-[place] Specimen (Source) Anatomical Collection Method Collection Time Re ceived Time Location / / Volume Laterality 11/20/2012 4:24 PM STEAM AND POWER SUPERVISOR Sulema Call M.D. LAB HISTORICAL ORDERS Performing Organization Address City/State/ZIP Code Phon e Number POWERCHART Pathology TIRE BUFFER Cytology (11/20/2012 12:00 AM STEAM AND POWER SUPERVISOR) Specimen (Source) Anatomical Location Collection Method / Collectio n Time Received Time / Laterality Volume 11/20/2012 Narrative [facility] - 11/25/2012 1:49 PM STEAM AND POWER SUPERVISOR [facility] [address] [place] [address] [phone] ? Patient Name: NANCY ROBINS Patient ID #: [id number] Collected: 11/20/2012 Address: City/State/Zip: [address] ??[phone] Received: Reported: 11/21/2012 11/25/2012 Soc. Sec. #: ?/Age/Sex 1985 (Age: 27) ??F Physician(s): QUENTIN CALL MD Copy To: ? [facility] ?? [id number] [place], ??[place] ??[address] CYTOPATHOLOGY TIRE BUFFER REPORT FINAL CYTOLOGIC DIAGNOSIS Pap Smear - ThinPrep: NEGATIVE FOR INTRAEPITHELIAL LESION OR MALIGNANCY PREDOMINANCE OF COCCOBACILLI CONSISTENT WITH SHIFT IN VAGINAL GAYLE (POSSIBLE BACTERIAL VAGINOSIS -- CLINICAL CORRELATION SUGGESTED). SPARSE TO NO ENDOCERVICAL COMPONENT PRES ENT. SATISFACTORY SPECIMEN FOR EVALUATION. Electronically Signed Out By johnw/11/25/2012 JOHN CARMONA([facility]) The Pap test is a screening procedure [...]
--- OUTSIDE RECORDS SUMMARY | 2022-07-25 09:17 | XMS_ITS | Encounter Summary ---
:1985 Author Organization [facility] Address [address] [place] [address] Care Team Providers Name Role Phone Unavailable [...] How often do you attend zoroastrian or gnosticist Never 07/04/2019 services? 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 [address] [phone] (Wo rk) Scheduled Procedures Name Priority Associated Diagnoses Date/Time LIFT THIGH Excessive And Redundant Skin And Subcutaneous Tissue documented as of this encounter Visit Diagnoses Not on filedocumented in this encounter Additional Health Concerns Assessment Noted Time PHQ-9 Depression Total Score: 17 05/07/2012 1:10 PM CD T documented as of this encounter
--- OUTSIDE RECORDS SUMMARY | 2022-07-25 09:17 | XMS_ITS | Encounter Summary ---
:1985 Author Organization [facility] Address [address] [place] [address] Care Team Providers Name Role Phone Unavailable Primary Care Provider Unavailable Encounter Details Date Type Department Care Team Description 12/27/2012 Hospital Encounter HX [facility] Jose Pressley Jr., M.D. [address] [place], [place] [phone] (Wo rk) Social History [...] How often do you attend voodoo or religion Never 07/04/2019 services? 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 [address] [phone] (Wo rk) Scheduled Procedures Name Priority Associated Diagnoses Date/Time LIFT THIGH Excessive And Redundant Skin And Subcutaneous Tissue documented as of this encounter Visit Diagnoses Not on filedocumented in this encounter Additional Health Concerns Assessment Noted Time PHQ-9 Depression Total Score: 17 05/07/2012 1:10 PM CD T documented as of this encounter
--- OUTSIDE RECORDS SUMMARY | 2022-07-25 09:17 | XMS_ITS | Encounter Summary ---
:1985 Author Organization [facility] Address [address] [place] [address] Care Team Providers Name Role Phone Unavailable [...] How often do you attend orthodoxy or bahai Never 07/04/2019 services? Do you [...] at Date Recorded Female 10/16/2018 10:[address]PRETER documented as of this encounter Last Filed Vital Signs Vital Sign Reading Time Taken Comments Blood Pressure 120/68 01/29/2013 1:31 PM CDT Pulse - - Temperature - - Respiratory Rate - - Oxygen Saturation - - Inhaled Oxygen Concentration - - Weight 130 kg (286 lb 9.6 oz) 01/29/2013 1:31 PM CDT Height - - Body Mass Index 48.69 10/08/2012 8:[address] INTERPRETER documented in this encounter Progress Notes Sulema Call M.D. - 01/29/2013 1:22 PM CDT [id number] CHIEF COMPLAINT / REASON FOR VISIT care. [...] month ago and basically is 0.7 kg test architect than her weight on November 20. PHYSICAL [...] CALL MD On: 02/03/2013 09:19 AM Source: [facility] MHSDOLBEYNONRADSYS Document Id: [id number] documented in this encounter Miscellaneous Notes Miscellaneous - Sulema Call M.D. - 01/29/2013 2:01 PM CDT Ambulatory Patient Summary [facility] [address] [place] [address] Visit Information Name: NANCY ROBINS [facility] Number: [id number] Current Date: 01/29/2013 14:01:19 Physicians [...] Time Location Reason Provider 02/26/2013 13:30 OWOC CONFERENCE ASSISTANT ob check Sulema Call MD Your Goals/Additional instructions: Source: [facility] POWERCHART Document Id: [id number] Miscellaneous - Sulema Call M.D. - 01/29/2013 2:01 PM CDT Ambulatory Depart Summary [facility] [address] [place] [address] Visit Information Name: NANCY ROBINS [facility] Number: [id number] Visit Date: 01/29/2013 14:01:18 Attending [...] your provider for clarification. Additional Information: Source: [facility] POWERCHART Document Id: [id number] Miscellaneous - Conversion, Historical Provider Ser - 01/29/2013 1:31 PM CDT Adult Breastfeeding Educator Intake/History Adult Breastfeeding Educator Intake/History Entered On: 01/29/2013 13:32 CDT Performed [...] Information Given By : Patient Languages : Occitan JOSE CARLOS MIKE 01/29/2013 13:31 CDT Subjective [...] CECIL ALEGRIA LPN; Reviewed Date: 10/08/2012 8:[address] INTERPRETER Source: [facility] [employer]ART Document Id: [id number] documented in this encounter Plan of Treatment Upcoming Encounters Date Type Specialty Care Team Description 08/17/2022 Procedure visit Neurology Marina Winter M.D., M.P.H. [address] [phone] (Wo rk) Scheduled Procedures Name Priority Associated Diagnoses Date/Time LIFT THIGH Excessive And Redundant Skin And Subcutaneous Tissue documented as of this encounter Visit Diagnoses Not on filedocumented in this encounter Additional Health Concerns Assessment Noted Time PHQ-9 Depression Total Score: 17 05/07/2012 1:10 PM CD T documented as of this encounter
--- OUTSIDE RECORDS SUMMARY | 2022-07-25 09:17 | XMS_ITS | Encounter Summary ---
:1985 Author Organization [facility] Address [address] [place] [address] Care Team Providers Name Role Phone Unavailable Primary Care Provider Unavailable Encounter Details Date Type Department Care Team Description 01/14/2013 Hospital Encounter HX [facility] Gonzales M.D. [address] [place] [address] (Wo rk) Social History Tobacco [...] How often do you attend uatsdin or christian Never 07/04/2019 services? 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 [address] [place] [phone] (Wo rk) Scheduled Procedures Name [...] survey COMPARISON: None. REFERRING PHYSICIAN: Dr. Winter JACKSCREW WORKER: Saige Clifford RDMS. : 4 PARA: 2 [...] survey COMPARISON: None. REFERRING PHYSICIAN: Dr. Winter JACKSCREW WORKER: Saige Clifford RDMS. : 4 PARA: 2 [...]
--- OUTSIDE RECORDS SUMMARY | 2022-07-25 09:17 | XMS_ITS | Encounter Summary ---
:1985 Author Organization [facility] Address [address] [place] [address] Care Team Providers Name Role Phone Unavailable Primary Care Provider Unavailable Encounter Details Date Type Department Care Team Description 06/11/2013 Hospital Encounter HX [facility] FAMILYPRA Griselda Baird, ArnoldoA. [address] [place] [address] [place] [address] (Wo rk) Social History Tobacco Use Types [...] How often do you attend cheondoism or taoism Never 07/04/2019 services? 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 She is a [id number], taking care of a total of 4 [...] for depression since she was in [place] [employer]. In [facility], she was started on Paxil. She was then on Celexa for many years, but over time this seemed to not be effective anymore, even at the highest dose. She has done some therapy in the past, and she is not sure she would like to restart that.She has been attending a [facility] support group in [place]. She states that she has been attending [...] the support group members at [facility] in [place], and so she plans to make the [...] COLEMAN PA-C On: 08/24/2013 03:02 PM Source: [facility] MHSDOLBEYNONRADSYS Document Id: [id number] documented in this encounter Miscellaneous Notes Miscellaneous - Griselda Coleman - 06/11/2013 5:17 PM CDT Ambulatory Patient Summary [facility] [address] [place] [address] Visit Information Name: NANCY ROBINS [facility] Number: [id number] Current Date: 06/11/2013 17:17:44 [...] Time Location Reason Provider 06/23/2013 13:30 FBCV EXPERIMENTAL ROCKETSLED MECHANIC post Eduardo RED, Bryson Joel Your Goals/Additional instructions: Source: [facility] POWERCHART Document Id: [id number] Miscellaneous - Griselda Coleman - 06/11/2013 5:17 PM CDT Ambulatory Depart Summary [facility] [address] [place] [address] [id number] Visit Information Name: NANCY ROBINS [facility] Number: [id number] Visit Date: 06/11/2013 17:17:44 [...] your provider for clarification. Additional Information: Source: [facility] POWERCHART Document Id: [id number] Miscellaneous - Conversion, Historical Provider Ser - 06/11/2013 1:11 PM CDT Adult Golf Instructor Intake/History Adult Golf Instructor Intake/History Entered On: 06/11/2013 13:16 CDT Performed [...] Preferred Communication Mode : Verbal Languages : Mohawk LEXII BRICENO - 06/11/2013 13:11 CDT Subjective [...] LEXII BRICENO - 06/11/2013 13:11 CDT Source: [facility] Document Id: [id number] CDT!38 Miscellaneous - Conversion, Historical Provider Ser [...] Psychosocial Domestic Abuse Concerns : None LEXII BRICENO - 06/11/2013 13:11 CDT Advance Directive Advanced Directives : No KAITY LEXII Zuniga - 06/11/2013 13:11 CDT Educ Needs Learning Style Preference Adult Grid Patient : Demonstration, Printed materials, Verbal explanation, Video/Educational TV Family : None LEXII BRICENO - 06/11/2013 13:11 CDT Source: [facility] Document Id: [id number] CDT!28 Miscellaneous - Conversion, Historical Provider Ser [...] LEXII BRICENO - 06/16/2013 8:18 CDT Source: [facility] Document Id: [id number] CDT!13 documented in this encounter Plan of Treatment Upcoming Encounters Date Type Specialty Care Team Description 08/17/2022 Procedure visit Neurology Marina Winter M.D., M.P.H. [address] [phone] (Wo rk) Scheduled Procedures Name Priority Associated Diagnoses Date/Time LIFT THIGH Excessive And Redundant Skin And Subcutaneous Tissue documented as of this encounter Visit Diagnoses Not on filedocumented in this encounter Additional Health Concerns Assessment Noted Time PHQ-9 Depression Total Score: 10 06/11/2013 8:18 AM CD T documented as of this encounter
--- OUTSIDE RECORDS SUMMARY | 2022-07-25 09:17 | XMS_ITS | Encounter Summary ---
:1985 Author Organization [facility] Address [address] [place] [address] Care Team Providers Name Role Phone Unavailable Primary Care Provider Unavailable Encounter Details Date Type Department Care Team Description 11/06/2012 Hospital Encounter HX NO MAPPING Checo Wright III, M.D. (Skip), M.P.H. [address] [place], [place] [address] (Wo rk) Social History Tobacco Use [...] How often do you attend temple or anglican Never 07/04/2019 services? 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 [address] [place] [phone] (Wo rk) Scheduled Procedures Name Priority Associated Diagnoses Date/Time LIFT THIGH Excessive And Redundant Skin And Subcutaneous Tissue documented as of this encounter Visit Diagnoses Not on filedocumented in this encounter Additional Health Concerns Assessment Noted Time PHQ-9 Depression Total Score: 17 05/07/2012 1:10 PM CD T documented as of this encounter
--- OUTSIDE RECORDS SUMMARY | 2022-07-25 09:17 | XMS_ITS | Encounter Summary ---
:1985 Author Organization [facility] Address [address] [place] [address] Care Team Providers Name Role Phone Unavailable Primary Care Provider Unavailable Encounter Details Date Type Department Care Team Description 11/06/2012 Hospital Encounter HX NO MAPPING Cheryl Mukherjee M.D. [address] [place], [place] [address] (Wo rk) Social History Tobacco [...] How often do you attend cheondoism or jain Never 07/04/2019 services? 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 [address], [place] [phone] (Wo rk) Scheduled Procedures Name Priority Associated Diagnoses Date/Time LIFT THIGH Excessive And Redundant Skin And Subcutaneous Tissue documented as of this encounter Visit Diagnoses Not on filedocumented in this encounter Additional Health Concerns Assessment Noted Time PHQ-9 Depression Total Score: 17 05/07/2012 1:10 PM CD T documented as of this encounter
--- OUTSIDE RECORDS SUMMARY | 2022-07-25 09:17 | XMS_ITS | Encounter Summary ---
:1985 Author Organization [facility] Address [address] [place] [address] Care Team Providers Name Role Phone Unavailable Primary Care Provider Unavailable Encounter Details Date Type Department Care Team Description 04/19/2013 Hospital Encounter HX NO MAPPING Sesar Callahan M.D. [address] [place] [address] (Wo rk) Social History Tobacco Use Types [...] How often do you attend presybeterian or caodaism Never 07/04/2019 services? 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 [address] [place], [place] [phone] (Wo rk) Scheduled Procedures Name Priority Associated Diagnoses Date/Time LIFT THIGH Excessive And Redundant Skin And Subcutaneous Tissue documented as of this encounter Visit Diagnoses Not on filedocumented in this encounter Additional Health Concerns Assessment Noted Time PHQ-9 Depression Total Score: 17 05/07/2012 1:10 PM CD T documented as of this encounter
--- OUTSIDE RECORDS SUMMARY | 2022-07-25 09:17 | XMS_ITS | Encounter Summary ---
:1985 Author Organization [facility] Address [address] [place] [address] Care Team Providers Name Role Phone Unavailable Primary Care Provider Unavailable Encounter Details Date Type Department Care Team Description 05/30/2013 Hospital Encounter HX [facility] Bryson Escobar Jr., M.D. [address] [place], [place] [phone] (Wo rk) Social [...] How often do you attend hindu or taoism Never 07/04/2019 services? 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/2018 10:53 AM FORESTRY SUPPORT SPECIALIST documented as of this encounter Last [...] Jr., M.D. - 05/30/2013 12:05 PM CDT [id number] CHIEF COMPLAINT/REASON FOR VISIT Patient in for [...] the information and had her sign the Goji paperwork for that and she will get [...] HOANG MD On: 06/02/2013 05:27 PM Source: [facility] MHSDOLBEYNONRADSYS Document Id: [id number] documented in this encounter Miscellaneous Notes Miscellaneous - Bryson Hoang Jr., M.D. - 05/30/2013 12:24 PM CD[place] [address] Visit Information Name: NANCY ROBINS [facility] Number: [id number] Current Date: 05/30/2013 12:24:20 Physicians [...] Time Location Reason Provider 06/23/2013 13:30 FBCV ROCKET ENGINE TESTER post Bryson Hoang MD Your Goals/Additional instructions: Source: [facility] POWERCHART Document Id: [id number] Miscellaneous - Bryson Hoang Jr., M.D. - 05/30/2013 12:24 PM CDT [place] [address] Visit Information Name: NANCY ROBINS [facility] Number: [id number] Visit Date: 05/30/2013 12:24:19 Attending [...] your provider for clarification. Additional Information: Source: [facility] POWERCHART Document Id: [id number] Miscellaneous - Alexandra العلي L.P.N. - 05/30/2013 12:18 PM CDT Adult Mosaicist Intake/History Adult Mosaicist Intake/History Entered On: 05/30/2013 12:19 CDT Performed [...] 05/30/2013 12:18 CDT General Info Languages : Chinese ALEXANDRA العلي - 05/30/2013 12:18 CDT Subjective [...] ALEXANDRA العلي - 05/30/2013 12:18 CDT Source: [facility] Wiziva Document Id: [id number]!30 documented in this encounter Plan of Treatment Upcoming Encounters Date Type Specialty Care Team Description 08/17/2022 Procedure visit Neurology Marina Winter M.D., M.P.H. [address] [phone] (Wo rk) Scheduled Procedures Name Priority Associated Diagnoses Date/Time LIFT THIGH Excessive And Redundant Skin And Subcutaneous Tissue documented as of this encounter Visit Diagnoses Not on filedocumented in this encounter Additional Health Concerns Assessment Noted Time PHQ-9 Depression Total Score: 17 05/07/2012 1:10 PM CD T documented as of this encounter
--- OUTSIDE RECORDS SUMMARY | 2022-07-25 09:17 | XMS_ITS | Encounter Summary ---
:1985 Author Organization [facility] Address [address] [place] [address] Care Team Providers Name Role Phone Unavailable Primary Care Provider Unavailable Encounter Details Date Type Department Care Team Description 04/26/2013 Hospital Encounter HX NO MAPPING Molly Clark Jr., M.D. [address] [place], [place] [phone] (Wo rk) Social History [...] How often do you attend latter-day or muslim Never 07/04/2019 services? 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 [address] [place] [phone] (Wo rk) Scheduled Procedures Name Priority Associated Diagnoses Date/Time LIFT THIGH Excessive And Redundant Skin And Subcutaneous Tissue documented as of this encounter Visit Diagnoses Not on filedocumented in this encounter Additional Health Concerns Assessment Noted Time PHQ-9 Depression Total Score: 17 05/07/2012 1:10 PM CD T documented as of this encounter
--- OUTSIDE RECORDS SUMMARY | 2022-07-25 09:17 | XMS_ITS | Encounter Summary ---
:1985 Author Organization [facility] Address [address] [place] [address] Care Team Providers Name Role Phone Unavailable [...] How often do you attend bahai or congregation Never 07/04/2019 services? 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 - 01/01/2013 2:47 PM CST [id number] CHIEF COMPLAINT/REASON FOR VISIT care. HISTORY OF [...] over successive days. Sulema Call M.D./shay DOCID: [id number] cc: Labor and Delivery Electronically Signed By: SULEMA CALL MD On: 01/02/2013 11:23 AM Source: [facility] MHSDOLBEYNONRADSYS Document Id: [id number] ANICAL INSULATOR documented in this encounter Miscellaneous Notes Miscellaneous - Conversion, Historical Provider Ser - 01/01/2013 2:52 PM MECHANICAL INSULATOR Adult Air Pollution Inspector Intake/History Adult Air Pollution Inspector Intake/History Entered On: 01/01/2013 14:53 MECHANICAL INSULATOR Performed On: 01/01/2013 14:52 MECHANICAL INSULATOR by JOSE CARLOS MIKE Intake Chief Complaint [...] : 130.00kg JOSE CARLOS MIKE 01/01/2013 14:52 MECHANICAL INSULATOR General Info Information Given By : Patient Languages : Portuguese JOSE CARLOS MIKE 01/01/2013 14:52 MECHANICAL INSULATOR Subjective Pain Symptoms : No JOSE CARLOS MIKE 01/01/2013 14:52 MECHANICAL INSULATOR Dependent Habits Tobacco Use/Currently Using : No Exposure to Tobacco Smoke : Other: never Smoking Status : Never smoker JOSE CARLOS MIKE 01/01/2013 14:52 MECHANICAL INSULATOR Tobacco Use Grid Other Tobacco Frequency : never JOSE CARLOS MIKE 01/01/2013 14:52 MECHANICAL INSULATOR Caffeine Use Grid Caffeine Use : Current Type : Soft drinks Frequency : Daily JOSE CARLOS MIKE 01/01/2013 14:52 MECHANICAL INSULATOR Allergy Allergies (Active) NKA Estimated Onset Date: Unspecified ; Created By: CECIL ALEGRIA LPN; Reaction Status: Active ; Category: Drug ; Substance: NKA ; Type: Allergy ; Updated By: CECIL ALEGRIA LPN; Reviewed Date: 10/08/2012 8:49 MECHANICAL INSULATOR Source: [email or web address] Document Id: [id number] documented in this encounter Plan of Treatment Upcoming Encounters Date Type Specialty Care Team Description 08/17/2022 Procedure visit Neurology Marina Winter M.D., M.P.H. [address] [phone] (Wo rk) Scheduled Procedures Name Priority Associated Diagnoses Date/Time LIFT THIGH Excessive And Redundant Skin And Subcutaneous Tissue documented as of this encounter Visit Diagnoses Not on filedocumented in this encounter Additional Health Concerns Assessment Noted Time PHQ-9 Depression Total Score: 17 05/07/2012 1:10 PM CD T documented as of this encounter
--- OUTSIDE RECORDS SUMMARY | 2022-07-25 09:17 | XMS_ITS | Encounter Summary ---
:1985 Author Organization [facility] Address [address] [place] [address] Care Team Providers Name Role Phone Unavailable [...] How often do you attend muslim or orthodoxy Never 07/04/2019 services? 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 [address] [place], [place] [phone] (Wo rk) Scheduled Procedures [...] Results Glucose, POCT (04/20/2013 8:44 AM CDT) [facility] gist Method Time Signature Glucose, 81 70 - 140 [facility] POCT, B MG/DL LABORATORIES - [facility] Sample Site, Capillary [facility] Blood Gas, LABORATORIES - POCT [facility] Specimen Anatomical Collection Method Collection Time Receive d Time (Source) Location / / Volume Laterality 04/20/2013 8:44 AM 3 8:44 CDT AM CDT Historical Provider LAB POCT ORDERABLES-MANUAL Performing Organization Address City/State/ZIP Code Phon e Number [facility] LABORATORIES - [address] [place], [place] [address] [facility] ABORh, RBC (04/20/2013 4:48 AM CDT) P athologist Signature HXABO/RH BLOOD A Pos [facility] TYPE [facility] Specimen (Source) Anatomical Collection Method Collection Time Re ceived Time Location / / Volume Laterality 04/20/2013 4:48 AM CDT Historical Provider LAB BLOOD BANK TEST ORDERABL ES Performing Organization Address City/[facility] Phon e Number [facility] LABORATORIES - [address] [address] [facility] Antibody Screen, RBC (04/20/2013 4:48 AM CDT) [facility] g[facility] Method Time Signature Antibody Negative [facility] Screen [facility] Specimen (Source) Anatomical Collection Method Collection Time Re ceived Time Location / / Volume Laterality 04/20/2013 4:48 AM CDT Historical Provider LAB BLOOD BANK TEST ORDERABL ES Performing Organization Address City/[facility] Phon e Number [facility] - [address] [address] [facility] ABORh, RBC (04/20/2013 4:48 AM CDT) P athologist Signature HXABO/RH A POS [facility] [place] Specimen (Source) Anatomical Collection Method Collection Time Re ceived Time Location / / Volume Laterality 04/20/2013 4:48 AM CDT Historical Provider LAB BLOOD BANK TEST ORDERABL ES Performing Organization Address City/[facility] Phon e Number [facility] - [address] [address] [facility] AST (Aspartate Aminotransferase) (04/20/2013 4:30 AM CDT) P athologist Signature AST, Total, S 12 8 - 43 U/L [facility] [place] Specimen Anatomical Collection Method Collection Time Receive d Time (Source) Location / / Volume Laterality 04/20/2013 4:30 AM 3 4:30 CDT AM CDT Nimco Gonzalez M.D. LAB BLOOD ADD-ON Performing Organization Address City/[facility]/ZIP [facility] Phon e Number [facility] - [address] [address] [facility] Creatinine with Estimated GFR (MDRD) (04/20/2013 4:30 AM CDT) Analysis Performed At [facility] logist Time Signature eGFR-Black/Afri >60 >60 [facility] can Algerian ML/MIN/BSA [facility] Creatinine 0.6 0.6 - 1.1 [facility] MG/DL [facility] - [facility] eGFR >60 >60 [facility] Non-Black/Afric ML/MIN/BSA LABORATORIES - an Algerian [facility] Specimen Anatomical Collection Method Collection Time Receive d Time (Source) Location / / Volume Laterality 04/20/2013 4:30 AM 3 4:30 CDT AM CDT Nimco Gonzalez M.D. LAB BLOOD ADD-ON Performing Organization Address City/[facility] Code Phon e Number [facility] LABORATORIES - [address] (ABNORMAL) CBC without Differential (04/20/2013 4:30 AM CDT) [facility] Method Time Signature Hemoglobin 11.4 (L) 12.0 - [facility] 15.5 G/DL [facility] Hematocrit 34.4 (L) 34.9 - [facility] 44.5 % [facility] - [facility] RBC Distrib 14.3 11.9 - [facility] Width 15.5 % [facility] - [facility] Platelet Count 188 150 - 450 [facility] X10(9)/L [facility] - [facility] Leukocytes 10.2 3.5 - [facility] 10.5 LABORATORIES - X10(9)/L [facility] Erythrocytes 4.15 3.90 - [facility] 5.03 LABORATORIES - X10(12)/L [facility] MCV 82.9 81.6 - [facility] 98.3 FL [facility] - [facility] Specimen Anatomical Collection Method Collection Time Receive d Time (Source) Location / / Volume Laterality 04/20/2013 4:30 AM 3 4:30 CDT AM CDT Nimco Gonzalez M.D. LAB BLOOD ADD-ON Performing Organization Address City/State/[facility] Code Phon e Number [facility] LABORATORIES - [address] [place] [place] [phone] [facility] Adulterants Survey, Urine (04/20/2013 4:23 AM CDT) [facility] Method Time Signature Creatinine, U 90.5 MG/DL [facility] (w/ADULT) LABORATORIES - [facility] Specific 1.028 [facility] [place] LAB[facility]ATOR[facility] - [facility] pH 5.5 [facility] [place] Oxidants Negative [facility] [place] Specimen Anatomical Collection Method Collection Time Receive d Time (Source) Location / / Volume Laterality 04/20/2013 4:23 AM 3 4:23 CDT AM CDT Historical Provider LAB URINE ORDERABLES Performing Organization Address City/State/ZIP Code Phon e Number [facility] - [address] [place], [place] [address] [facility] Drug Abuse Survey with Confirmation, Panel 9, Urine (04/20/2013 4:23 AM CDT) Component Value Ref Test Analysis Performed At [facility] gist Range Method Time Signature Alcohol Negative Cutoff: [facility] 30 MG/DL [facility] Amphetamines, U Negative Cutoff: [facility] 500 LABORATORIES - NG/ML [facility] Cocaine, Quant Negative Cutoff: [facility] 150 LABORATORIES - NG/ML [facility] Methadone Metabolite Negative Cutoff: [facility] 300 LABORATORIES - NG/ML [facility] Propoxyphene, U Negative Cutoff: [facility] 300 LABORATORIES - NG/ML [facility] Tetrahydrocannabinol Negative Cutoff: [facility] 20 NG/ML [facility] Barbiturates Screen Negative Cutoff: [facility] 200 LABORATORIES - NG/ML [facility] Benzodiazepines Negative Cutoff: [facility] 200 LABORATORIES - NG/ML [facility] Opiates Negative Cutoff: [facility] 300 LABORATORIES - NG/ML [facility] Phencyclidine Negative Cutoff: [facility] 25 NG/ML [facility] Chain of Custody . [facility] [place] Comment: Chain of custody documents are on file i n the [facility]. ? This report is intended for use in clini lori monitoring or management of ? patients. ??It is not intended for use i n employment-related testing. ? Specimen Anatomical Collection Method Collection Time Receive d Time (Source) Location / / Volume Laterality 04/20/2013 4:23 AM 3 4:23 CDT AM CDT Historical Provider LAB URINE ORDERABLES Performing Organization Address City/State/[facility] Phon e Number [facility] LABORATORIES - [address] [place], [place] [address] [facility] documented in this encounter Visit Diagnoses Not on filedocumented in this encounter Additional Health Concerns Assessment Noted Time PHQ-9 Depression Total Score: 17 05/07/2012 1:10 PM CD T documented as of this encounter
--- OUTSIDE RECORDS SUMMARY | 2022-07-25 09:17 | XMS_ITS | Encounter Summary ---
:1985 Author Organization [facility] Address [address] [place] [address] Care Team Providers Name Role Phone Unavailable [...] How often do you attend evangelical or hoahaoism Never 07/04/2019 services? 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 - 03/12/2013 1:59 PM CDT [id number] CHIEF COMPLAINT / REASON FOR VISIT care. 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 [...] CALL MD On: 03/13/2013 10:51 AM Source: [facility] MHSDOLBEYNONRADSYS Document Id: [id number] documented in this encounter Miscellaneous Notes Miscellaneous - Sulema Call M.D. - 03/18/2013 8:14 AM CDT Results Notification Document Contains Addenda Addendum by JOSE CARLOS MIKE on 18 Mar 2013 10:26:13 CDT Pt notified of results. From: SULEMA CALL MD To: JACEY Call Nurse; Sent: 03/18/2013 08:14:42 CDT ! Show up: 03/18/2013 13:14:42 [facility] Subject: Results Notification Actions: Note to Nurse Reminder Comments: ACOG Results: Date Result Name Value Ref Range 03/12/2013 17:06 C trach Amp Src-Mobile CERVIX 03/12/2013 17:06 C trach Amp RNA-Mobile Negative (Negative - ) 03/12/2013 17:06 N gonor Amp DNA-Mobile Negative (Negative - ) 03/12/2013 17:06 N gonor Amp Src-Mobile CERVIX Source: [facility] POWERCHART Document Id: [id number] Electronically signed by Conversion, [facility] Saturation Equipment Operator [id number] at 04/04/2017 4:33 AM CDT Miscellaneous - Sulema Call M.D. - 03/12/2013 2:53 PM CDT Ambulatory Patient Summary [facility] [address] [place] [phone] Visit Information Name: NANCY ROBINS 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 - 03/12/2013 2:53 PM CDT Ambulatory Depart Summary [facility] [address] [place] [address] Visit Information Name: NANCY ROBINS [facility] Number: [id number] Visit Date: 03/12/2013 14:53:23 Attending [...] your provider for clarification. 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 [address] [phone] (Wo rk) Scheduled Procedures Name Priority [...] athologist Signature HXN gonor Amp Negative POWERCHART DNA-Mobile Specimen (Source) Anatomical Collection Method Collection Time Re ceived Time Location / / Volume Laterality 03/12/2013 5:06 PM CDT Narrative POWERCHART - 03/13/2013 8:23 PM CDT Test Performed by: [address] [place] [address] Learning And Development Consultant: Federico anne III, M.D. Sulema Call M.D. LAB HISTORICAL ORDERS Performing Organization Address City/State/ZIP Code Phon e Number POWERCHART HX-N gonor Amp Src (03/12/2013 5:06 PM CDT) athologist Signature HXN gonor Amp [place] POWERCHART Src-Mobile Specimen (Source) Anatomical Collection Method Collection Time Re ceived Time Location / / Volume Laterality 03/12/2013 5:06 PM CDT Sulema Call M.D. LAB HISTORICAL ORDERS Performing Organization Address City/State/ZIP Code Phon e Number POWERCHART HX-C trach Amp RNA (03/12/2013 5:06 PM CDT) [facility] gist Method Time Signature Chlamydia Negative POWERCHART trachomatis amplified RNA Specimen (Source) Anatomical Collection Method Collection Time Re ceived Time Location / / Volume Laterality 03/12/2013 5:06 PM CDT Sulema Call M.D. LAB HISTORICAL ORDERS Performing Organization Address City/State/ZIP Code Phon e Number POWERCHART HX-C trach Amp Src (03/12/2013 5:06 PM CDT) athologist Signature HXC trach Amp [facility] [facility] Specimen (Source) Anatomical Collection Method Collection Time [...]
--- OUTSIDE RECORDS SUMMARY | 2022-07-25 09:17 | XMS_ITS | Encounter Summary ---
:1985 Author Organization [facility] Address [address] [place] [address] Care Team Providers Name Role Phone Unavailable Primary Care Provider Unavailable Encounter Details Date Type Department Care Team Description 03/28/2013 Hospital Encounter HX [facility] Israel Hoang Jr., M.D. [address] [place], [place] [phone] (Wo rk) Social History [...] How often do you attend synagogue or uatsdin Never 07/04/2019 services? 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 - 03/29/2013 2:14 PM CDT Results Notification Document Contains Addenda Addendum by LISA PAIGE on 01 Apr 2013 10:40:06 CDT Results added to chart. From: BRYSON HOANG MD To: LISA PAIGE; Sent: 03/29/2013 14:14:12 CDT ! Show up: 03/29/2013 19:14:12 [facility] Subject: Results Notification Actions: [...] 19.9 % (19.3 - 51.7) 03/28/2013 15:54 [place] % 6.3 % (4.7 - 12.5) 03/28/2013 15:54 Eos % (L) 0.6 % (0.7 - 5.8) 03/28/2013 15:54 Baso % 0.2 % (0.1 - 1.2) 03/28/2013 15:54 Neutro Absolute (H) 8.06 10(9)/L (1.70 - 7.00) 03/28/2013 15:54 Lymph Absolute 2.19 x10(9)/L (0.90 - 2.90) 03/28/2013 15:54 [place] Absolute 0.69 x10(9)/L (0.30 - 0.90) 03/28/2013 15:54 Eos Absolute 0.07 x10(9)/L (0.05 - 0.50) 03/28/2013 15:54 Baso Absolute 0.02 x10(9)/L (0.00 - 0.30) 03/28/2013 15:54 Differential? Auto Source: [facility] POWERCHART Document Id: [id number] documented in this encounter Plan of Treatment Upcoming Encounters Date Type Specialty Care Team Description 08/17/2022 Procedure visit Neurology Marina Winter M.D., M.P.H. [address] [phone] (Wo rk) Scheduled Procedures [...] (ABNORMAL) Automated Differential (03/28/2013 3:54 PM CDT) [facility] gist Method Time Signature Neutro % 73.0 (H) 34.0 - POWERCHART 71.1 Lymphocytes % 19.9 19.3 - POWERCHART 51.7 HX [place] % 6.3 4.7 - 12.5 POWERCHART HX [...] M.D. LAB BLOOD ADD-ON Performing Organization Address City/[facility]/ZIP Code Phon e Number POWERCHART (ABNORMAL) CBC with Differential (03/28/2013 3:54 PM CDT) Patholo gist Method Time Signature Leukocytes 11.0 (H) 3.4 - 10.5 POWERCHART [id number] Erythrocytes 4.39 3.90 - POWERCHART 5.03 [id number] Hemoglobin 12.6 12.0 - POWERCHART 15.5 GDL [...] M.D. LAB BLOOD ADD-ON Performing Organization Address City/[facility] Code Phon e Number POWERCHART Hemoglobin A1c [...]
--- OUTSIDE RECORDS SUMMARY | 2022-07-25 09:17 | XMS_ITS | Encounter Summary ---
:1985 Author Organization [facility] Address [address] [place] [address] Care Team Providers Name Role Phone Unavailable Primary Care Provider Unavailable Encounter Details Date Type Department Care Team Description 04/30/2013 Hospital Encounter HX [facility] Bryson Escobar Jr., M.D. [address] [place], [place] [phone] (Wo rk) Social History [...] How often do you attend amish or zoroastrian Never 07/04/2019 services? 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 - 04/30/2013 1:53 PM CDT [id number] CHIEF COMPLAINT/REASON FOR VISIT: OB visit. HISTORY [...] and will contact the clinic with any MANUAL QA TESTER related questions and concerns prior to this time. This document serves as a record of services personally performed by Bryson Hoang MD. It was created on their behalf by Maldonado Nick, a trained lpn or medical assistant. The creation of this record is based on the scribe's personal observations and the provider's statements to them. This document has been checked and approved by the attending provider. Bryson Hoang M.D./jonh Electronically Signed By: BRYSON HOANG MD On: 04/30/2013 06:08 PM Source: [facility] MHSDOLBEYNONRADSYS Document Id: [id number] documented in this encounter Miscellaneous Notes Miscellaneous - Bryson Hoang Jr., M.D. - 04/30/2013 2:18 PM CDT [place] [address] Visit Information Name: NANCY ROBINS [facility] Number: [id number] Current Date: 04/30/2013 14:18:41 [...] Appointments found Your Goals/Additional instructions: Source: [facility] POWERCHART Document Id: [id number] Miscellaneous - Bryson Hoang Jr., M.D. - 04/30/2013 2:18 PM CDT [place] [address] Visit Information Name: NANCY ROBINS [facility] Number: [id number] Visit Date: 04/30/2013 14:18:40 [...] provider for clarification. Additional Information: Source: [facility] Cheers Document Id: [id number] Miscellaneous - Nicki Vaz, R.N. 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 Document Id: [id number] CDT!26 documented in this encounter Plan of Treatment Upcoming Encounters Date Type Specialty Care Team Description 08/17/2022 Procedure visit Neurology Marina Winter M.D., M.P.H. [address] [phone] (Wo rk) Scheduled Procedures Name Priority Associated Diagnoses Date/Time LIFT THIGH Excessive And Redundant Skin And Subcutaneous Tissue documented as of this encounter Visit Diagnoses Not on filedocumented in this encounter Additional Health Concerns Assessment Noted Time PHQ-9 Depression Total Score: 17 05/07/2012 1:10 PM CD T documented as of this encounter
--- OUTSIDE RECORDS SUMMARY | 2022-07-25 09:17 | XMS_ITS | Encounter Summary ---
:1985 Author Organization [facility] Address [address] [place] [address] Care Team Providers Name Role Phone Unavailable [...] How often do you attend orthodox or faith Never 07/04/2019 services? 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 - 12/19/2012 1:19 PM CST [id number] CHIEF COMPLAINT / REASON FOR VISIT care. [...] for her survey. Sulema Call M.D./mikel DOCID: [id number] cc: Labor and Delivery Electronically Signed By: SULEMA CALL MD On: 12/23/2012 09:05 AM Source: [facility] MHSDOLBEYNONRADSYS Document Id: [id number] TS AGENT documented in this encounter Miscellaneous Notes Miscellaneous - Sulema Call M.D. 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 - 12/19/2012 2:38 PM CST Ambulatory Depart Summary [address] [address] Visit Information Name: NANCY ROBINS [facility] Number: [id number] Visit Date: 12/19/2012 14:38:29 Attending [...] your provider for clarification. 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 Entered On: 12/19/2012 13:28 SPORTS AGENT Performed On: 12/19/2012 13:26 SPORTS AGENT by JOSE CARLOS MIKE Intake Chief Complaint [...] 130.70kg JOSE CARLOS MIKE - 12/19/2012 13:26 SPORTS AGENT General Info Information Given By : Patient Languages : Italian JOSE CARLOS MIKE - 12/19/2012 13:26 SPORTS AGENT Subjective Pain Symptoms : No JOSE CARLOS MIKE - 12/19/2012 13:26 SPORTS AGENT Dependent Habits Tobacco Use/Currently Using : No Exposure to Tobacco Smoke : Other: never Smoking Status : Never smoker JOSE CARLOS MIKE 12/19/2012 13:26 SPORTS AGENT Tobacco Use Grid Other Tobacco Frequency : never JOSE CARLOS MIKE 12/19/2012 13:26 SPORTS AGENT Caffeine Use Grid Caffeine Use : Current Type : Soft drinks Frequency : Daily JOSE CARLOS MIKE 12/19/2012 13:26 SPORTS AGENT Allergy Allergies (Active) NKA Estimated Onset Date: Unspecified ; Created By: CECIL ALEGRIA LPN; Reaction Status: Active ; Category: Drug ; Substance: NKA ; Type: Allergy ; Updated By: CECIL ALEGRIA LPN; Reviewed Date: 10/08/2012 8:49 SPORTS AGENT Source: [facility] Document Id: [id number] documented in this encounter Plan of Treatment Upcoming Encounters Date Type Specialty Care Team Description 08/17/2022 Procedure visit Neurology Marina Winter M.D., M.P.H. [address] [phone] (Wo rk) Scheduled Procedures Name Priority Associated Diagnoses Date/Time LIFT THIGH Excessive And Redundant Skin And Subcutaneous Tissue documented as of this encounter Visit Diagnoses Not on filedocumented in this encounter Additional Health Concerns Assessment Noted Time PHQ-9 Depression Total Score: 17 05/07/2012 1:10 PM CD T documented as of this encounter
--- OUTSIDE RECORDS SUMMARY | 2022-07-25 09:17 | XMS_ITS | Encounter Summary ---
:1985 Author Organization [facility] Address [address] [place] [address] Care Team Providers Name Role Phone Unavailable Primary Care Provider Unavailable Encounter Details Date Type Department Care Team Description 05/14/2013 Hospital Encounter HX [facility] Bryson Escobar Jr., M.D. [address] [place], [place] [phone] (Wo rk) Social History [...] often do you attend jehovah's witness or latter day Never 07/04/2019 services? 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 - 05/14/2013 4:07 PM CDT [id number] CHIEF COMPLAINT/REASON FOR VISIT Possible incision separation. [...] HOANG MD On: 05/16/2013 09:59 AM Source: [facility] MHSDOLBEYNONRADSYS Document Id: [id number] documented in this encounter Miscellaneous Notes Miscellaneous - Bryson Hoang Jr., M.D. 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 - 05/14/2013 4:25 PM CDT [place] [address] Visit Information Name: NANCY ROBINS [facility] Number: [id number] Visit Date: 05/14/2013 16:25:08 [...] clarification. Additional Information: Source: [facility] POWERCHART Document Id: [id number] Miscellaneous - Nicki Vaz R.N. - 05/14/2013 4:11 PM CDT Adult Emergency Department Aide Intake/History Adult Emergency Department Aide Intake/History Entered On: 05/14/2013 16:12 CDT Performed [...] 05/14/2013 16:11 CDT General Info Languages : Brazilian NICKI PAIGE - 05/14/2013 16:11 CDT Subjective Pain Symptoms : No NICKI PAIGE - 05/14/2013 16:11 CDT Dependent Habits Tobacco Use/Currently Using : No Exposure to Tobacco Smoke : Other: never Smoking Status : Never smoker NICKI PIAGE - 05/14/2013 16:11 CDT Tobacco Use Grid Other Tobacco Frequency : never NICKI PAIGE - 05/14/2013 16:11 CDT Caffeine Use Grid Caffeine Use : Current Type : Soft drinks Frequency : Daily NICKI PAIGE - 05/14/2013 16:11 CDT [facility] Document Id: [id number] CDT!28 documented in this encounter Plan of Treatment Upcoming Encounters Date Type Specialty Care Team Description 08/17/2022 Procedure visit Neurology Marina Winter M.D., M.P.H. [address] [phone] (Wo rk) Scheduled Procedures Name Priority Associated Diagnoses Date/Time LIFT THIGH Excessive And Redundant Skin And Subcutaneous Tissue documented as of this encounter Visit Diagnoses Not on filedocumented in this encounter Additional Health Concerns Assessment Noted Time PHQ-9 Depression Total Score: 17 05/07/2012 1:10 PM CD T documented as of this encounter
--- OUTSIDE RECORDS SUMMARY | 2022-07-25 09:17 | XMS_ITS | Encounter Summary ---
:1985 Author Organization [facility] Address [address] [place] [address] Care Team Providers Name Role Phone Unavailable [...] How often do you attend orthodoxy or latter-day Never 07/04/2019 services? 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 - 04/23/2013 8:21 AM CDT [id number] CHIEF COMPLAINT / REASON FOR VISIT Routine OB visit HISTORY OF PRESENT ILLNESS This patient is a 28-year-old G4 P 2-0-1-2 female with LMP 08/13/2012. EDC 05/21/2013 at 36-0/7 weeks. Patient presents for OB visit. She is doing well. She was seen in labor and delivery on 04/20/2013 with elevated blood pressure and concern for preeclampsia. The patient was transferred to [facility]. She was observed overnight at [facility] and discharged home with normal bloodpressures. She [...] that it was normal. We will contact [facility] to obtain this result 6. Follow up in [address] Clark as scheduled or be seen sooner p.r.n.. Kit Hathaway M.D./gia Electronically Signed By: KIT HATHAWAY MD On: 04/25/2013 11:35 AM [facility] Document Id: [id number] documented in this encounter Miscellaneous Notes Miscellaneous - Kit Hathaway M.D. 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 - 04/23/2013 9:14 AM CDT [place] [address] Visit Information Name: NANCY ROBINS [facility] Number: [id number] Visit Date: 04/23/2013 09:14:31 Attending [...] Additional Information: Source: [facility] Document Id: [id number] Miscellaneous - Alexandra العلي LRodrigoP.N. 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 [address] [place] [phone] (Wo rk) Scheduled Procedures Name Priority Associated Diagnoses Date/Time LIFT THIGH Excessive And Redundant Skin And Subcutaneous Tissue documented as of this encounter Visit Diagnoses Not on filedocumented in this encounter Additional Health Concerns Assessment Noted Time PHQ-9 Depression Total Score: 17 05/07/2012 1:10 PM CD T documented as of this encounter
--- OUTSIDE RECORDS SUMMARY | 2022-07-25 09:17 | XMS_ITS | Encounter Summary ---
:1985 Author Organization [facility] Address [address] [place] [address] Care Team Providers Name Role Phone Unavailable Primary Care Provider Unavailable Encounter Details Date Type Department Care Team Description 01/06/2013 Hospital Encounter HX NO MAPPING Checo Wright III, M.D. (Skip), M.P.H. [address] [place], [place] [address] (Wo rk) Social History Tobacco Use [...] How often do you attend mu-ism or yazidi Never 07/04/2019 services? 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 [address] [place] [phone] (Wo rk) Scheduled Procedures Name Priority Associated Diagnoses Date/Time LIFT THIGH Excessive And Redundant Skin And Subcutaneous Tissue documented as of this encounter Visit Diagnoses Not on filedocumented in this encounter Additional Health Concerns Assessment Noted Time PHQ-9 Depression Total Score: 17 05/07/2012 1:10 PM CD T documented as of this encounter
--- OUTSIDE RECORDS SUMMARY | 2022-07-25 09:17 | XMS_ITS | Encounter Summary ---
:1985 Author Organization [facility] Address [address] [place] [address] Care Team Providers Name Role Phone Unavailable Primary Care Provider Unavailable Encounter Details Date Type Department Care Team Description 01/06/2013 Hospital Encounter HX NO MAPPING Checo Wright III, M.D. (Skip), M.P.H. [address] [place], [place] [address] (Wo rk) Social History Tobacco Use [...] How often do you attend faith or hindu Never 07/04/2019 services? 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 [address] [place] [phone] (Wo rk) Scheduled Procedures Name Priority Associated Diagnoses Date/Time LIFT THIGH Excessive And Redundant Skin And Subcutaneous Tissue documented as of this encounter Visit Diagnoses Not on filedocumented in this encounter Additional Health Concerns Assessment Noted Time PHQ-9 Depression Total Score: 17 05/07/2012 1:10 PM CD T documented as of this encounter
--- OUTSIDE RECORDS SUMMARY | 2022-07-25 09:18 | XMS_ITS | Encounter Summary ---
:1985 Author Organization [facility] Address [address] [place] [address] Care Team Providers Name Role Phone Unavailable [...] How often do you attend mandaen or mosque Never 07/04/2019 services? 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 FUSER documented as of this encounter Last Filed Vital Signs Vital Sign Reading Time Taken Comments Blood Pressure - - Pulse - - Temperature - - Respiratory Rate - - Oxygen Saturation - - Inhaled Oxygen Concentration - - Weight 129 kg (285 lb 4.4 oz) 10/08/2012 8:32 AM PACKER FUSER Height 163.4 cm (5' 4.33) 10/08/2012 8:32 AM PACKER FUSER Body Mass Index 48.46 10/08/2012 8:32 AM PACKER FUSER documented in this encounter Nursing Notes Radha [...] MD at scheduled appt., earlier if needed __x_[facility] Recommendations signed and witnessed Recommendations: Encouraged to call with questions or concerns. Offer appt with MD to address medication. Encouragedto keep open line of communication with MD re: emtional status evenif between visits-if thoughts of hurt self/others should get help immediately. Materials Provided: __x_Beginnings: , and Beyond-[facility] __[facility] Folder __x_Maternal Serum Screening-Nelson _x_Cystic Fibrosis Carrier Testing-Nelson __x_First Trimester Screening for Down Syndrome-[place]elson __xNeonatal Med Sheet __x_Listeriosis and -[place] _x_A Family Guide to Eating Fish-[facility] Electronically Signed By: RADHA RHOADES On: 10/08/2012 09:25 AM Source: [facility] Document Id: [id number] ER FUSER documented in this encounter Miscellaneous Notes Miscellaneous - Radha Rhoades RCiera - 10/08/2012 8:32 AM CST Adult Heel Seat Fitter Intake/History Adult Heel Seat Fitter Intake/History Entered On: 10/08/2012 8:49 PACKER FUSER Performed On: 10/08/2012 8:32 PACKER FUSER by RADHA RHOADES Intake Chief Complaint : nob education/intake appt LMP:08/13/12 EDC:05/19/13 Height : 163.4cm(Converted to: 5ft 4inch(es), 64.33inch(es)) Actual Weight : 129.4kg(Converted to: 285lb 4oz) Dosing Weight Clinic : 129.40kg Clinic BSA : 2.42 Body Mass Index : 48.47kg/m2 RADHA RHOADES - 10/08/2012 8:32 PACKER FUSER Subjective Pain Symptoms : No RADHA RHOADES - 10/08/2012 8:32 PACKER FUSER Dependent Habits Tobacco Use/Currently Using : No Exposure to Tobacco Smoke : Other: never Smoking Status : Never smoker RADHA RHOADES - 10/08/2012 8:32 PACKER FUSER Tobacco Use Grid Other Tobacco Frequency : never RADHA RHOADES - 10/08/2012 8:32 PACKER FUSER Caffeine Use Grid Caffeine Use : Current Type : Soft drinks Frequency : Daily RADHA RHOADES - 10/08/2012 8:32 PACKER FUSER Allergy Allergies (Active) NKA Estimated Onset Date: Unspecified ; Created By: CECIL ALEGRIA LPN; Reaction Status: Active ; Category: Drug ; Substance: NKA ; Type: Allergy ; Updated By: CECIL ALEGRIA LPN; Reviewed Date: 09/10/2012 14:36 PACKER FUSER Source: [facility] UploadcareCHART Document Id: [id number] ER FUSER documented in this encounter Plan of Treatment Upcoming Encounters Date Type Specialty Care Team Description 08/17/2022 Procedure visit Neurology Marina Winter M.D., M.P.H. [address] [place], [place] [phone] (Wo rk) Scheduled Procedures Name Priority Associated Diagnoses Date/Time LIFT THIGH Excessive And Redundant Skin And Subcutaneous Tissue documented as of this encounter Procedures Procedure Name Priority Date/Time Associated Comments Diagnosis BACTERIAL CULTURE, Routine 10/08/2012 10:02 Resul ts for this AEROBIC, URINE AM PACKER FUSER procedure are in the results section. URINALYSIS, ROUTINE Routine 10/08/2012 9:55 AM Re sults for this PACKER FUSER procedure are i n the results section. URINE MICROSCOPIC Routine 10/08/2012 9:55 AM Resu lts for this PACKER FUSER procedure are i n the results section. HXZZORDERS Routine 10/08/2012 9:47 AM Results f or this PACKER FUSER procedure are i n the results section. ABO GROUPING, B Routine 10/08/2012 9:47 AM Result s for this PACKER FUSER procedure are i n the results section. PROFILE II Routine 10/08/2012 9:47 AM Re sults for this WITHOUT CBC, B/SERUM PACKER FUSER procedu re are in the results section. AUTOMATED Routine 10/08/2012 9:47 AM Results f or this DIFFERENTIAL, B PACKER FUSER procedure ar e in the results section. CBC WITH Routine 10/08/2012 9:47 AM Results f or this DIFFERENTIAL, B PACKER FUSER procedure ar e in the results section. ANTIBODY SCREEN, B Routine 10/08/2012 9:47 AM Res ults for this PACKER FUSER procedure are i n the results section. documented in this encounter Results (ABNORMAL) Bacterial Culture, Aerobic, Urine (10/08/2012 10:02 AM PACKER FUSER) Analysis Performed At Patho logist Time Signature [...] Laterality Urine, Clean 10/08/2012 10:02 Catch AM PACKER FUSER Comment: P Samir Call M.D. LAB MICROBIOLOGY - GENERAL O RDERABLES Performing Organization Address [facility] Phon e Number POWERCHART Urine Microscopic (10/08/2012 9:55 AM PACKER FUSER) [facility] Method Time Signature HXUr WBC 0-5 0 [...] Laterality Urine 10/08/2012 9:55 AM 2 9:55 PACKER FUSER AM PACKER FUSER Samir Call M.D. LAB URINE ORDERABLES Performing Organization Address [facility] Phon e Number POWERCHART Urinalysis, Routine (10/08/2012 9:55 AM PACKER FUSER) [facility] Method Time Signature Source Clean Void POWERCHART Urine HXUr Color STRAW POWERCHART Glucose Negative Negative POWERCHART HXBILIRUBIN Negative Negative POWERCHART Ketones, QL(U) Trace Negative POWERCHART Specific >=1.030 >=1.030 POWERCHART [place], POCT, U pH, POCT, Urine 6.0 8.5 POWERCHART Protein, Ur, Dip Negative Negative POWERCHART Urobilinogen 0.2 1.0 POWERCHART HXNITRITE Negative Negative POWERCHART HXBLOOD Negative Negative POWERCHART Leukocyte Negative Negative POWERCHART Esterase Specimen (Source) Anatomical Collection Method Collection Time Re ceived Time Location / / Volume Laterality Urine 10/08/2012 9:55 AM PACKER FUSER Samir Call M.D. LAB URINE ORDERABLES Performing Organization Address [facility]/State/ZIP Code Phon e Number POWERCHART Antibody Screen (10/08/2012 9:47 AM PACKER FUSER) P athologist Signature Antibody Negative POWERCHART Screen Comment: Test Performed by: [address] [address] Lab oratory Director: Federico Eastman III, M.D. Specimen (Source) Anatomical Collection Method Collection Time Re ceived Time Location / / Volume Laterality 10/08/2012 9:47 AM PACKER FUSER Samir Call M.D. LAB BLOOD BANK TEST ORDERABL ES Performing Organization Address City/[facility] Code Phon e Number POWERCHART Grouping and Rh-Nelson FLIP, see #[id number] (10/08/2012 9:47 AM PACKER FUSER) [facility] gist Method Time Signature HX Grouping A Positive POWERCHART and Rh Specimen (Source) Anatomical Collection Method Collection Time Re ceived Time Location / / Volume Laterality 10/08/2012 9:47 AM PACKER FUSER Samir Call M.D. LAB BLOOD BANK TEST ORDERABL ES Performing Organization Address City/[facility] Phon e Number POWERCHART (ABNORMAL) Automated Differential (10/08/2012 9:47 AM PACKER FUSER) Patholo gist Method Time Signature Neutro % 71.4 (H) 44.0 - POWERCHART 69.0 Lymphocytes % 19.6 18.0 - POWERCHART 44.1 HX [place] % 7.2 5.0 - 11.7 POWERCHART HX [...] Laterality Blood 10/08/2012 9:47 AM 2 9:47 PACKER FUSER AM PACKER FUSER Samir Call M.D. LAB BLOOD ADD-ON Performing Organization Address City/[facility]/ZIP Code Phon e Number POWERCHART CBC with Differential (10/08/2012 9:47 AM PACKER FUSER) athologist [facility] Leukocytes 8.4 3.4 - 10.5 POWERCHART X109L Erythrocytes 4.40 3.90 - 5.03 POWERCHART M3531Y Hemoglobin 13.1 12.0 - 15.5 POWERCHART GDL Hematocrit 38.7 34.9 - 44.5 POWERCHART MCV 88.0 82.0 - 98.0 POWERCHART FL HX RDW 12.7 11.9 - 15.5 POWERCHART Platelet Count 257 150 - 450 POWERCHART X109L Specimen (Source) Anatomical Collection Method Collection Time Re ceived Time Location / / Volume Laterality Blood 10/08/2012 9:47 AM PACKER FUSER Samir Call M.D. LAB BLOOD ADD-ON Performing Organization Address City/[facility] Phon e Number POWERCHART Profile II without CBC/Serum (10/08/2012 9:47 AM PACKER FUSER) athologist [facility] HBs Antigen, S Negative Negative POWERCHART Comment: Test Performed by: [place] [address] Solar Water Heater Installer: Federico anne III, M.D. Syphilis IgG Ab, S Negative Negative POWERCHART Comment: Test Performed by: [place] [address] Solar Water Heater Installer: Federico anne III, M.D. HX Rubella IgG-Nelson Positive POWERCHART Comment: -- REFERENCE VALUE -- Negative Test Performed by: [place] [address] Solar Water Heater Installer: Federico anne III, M.D. Specimen (Source) Anatomical Collection Method Collection Time Re ceived Time Location / / Volume Laterality Blood 10/08/2012 9:47 AM PACKER FUSER Samir Call M.D. LAB BLOOD NON ADD-ON Performing Organization Address City/[facility] Phon e Number POWERCHART HXZZORDERS (10/08/2012 9:47 AM PACKER FUSER) athologist [facility] HIV-1/-2 Negative Negative POWERCHART Antibody Comment: Negative [...] negative. Testing is performed using the [employer] ros Anti-HIV 1+2 chemiluminescence immunoassay. Test Performed by: [place] [address] Solar Water Heater Installer: Federico anne III, M.D. Specimen (Source) Anatomical Collection Method Collection Time Re ceived Time Location / / Volume Laterality Blood 10/08/2012 9:47 AM PACKER FUSER Samir Call M.D. LAB HISTORICAL ORDERS Performing Organization Address City/State/ZIP Code Phon e Number POWERCHART documented in this encounter Visit Diagnoses Not on filedocumented in this encounter Additional Health Concerns Assessment Noted Time PHQ-9 Depression Total Score: 17 05/07/2012 1:10 PM CD T documented as of this encounter
--- OUTSIDE RECORDS SUMMARY | 2022-07-25 09:18 | XMS_ITS | Encounter Summary ---
:1985 Author Organization [facility] Address [address] [place] [address] Care Team Providers Name Role Phone Unavailable Primary Care Provider Unavailable Encounter Details Date Type Department Care Team Description 11/13/2011 Hospital Encounter [facility]X [facility] FAMILYPRA Grandalfred, Lizandro Olgiun, P.A.-C., P.A. [address], [place] [address] (Wo rk) Social History [...] How often do you attend anabaptism or congregational Never 07/04/2019 services? 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 - 11/13/2011 12:00 AM CST [id number] CHIEF COMPLAINT/REASON FOR VISIT Discuss control. HISTORY [...] LEXII MINOR On: 11/17/2011 02:30 PM Source: [facility] MHSDOLBEYNONRADSYS Document Id: [id number] ERPRINT CLASSIFIER documented in this encounter Miscellaneous Notes Miscellaneous - Helen Blandon L.P.N. - 11/13/2011 3:27 PM CST Adult Building Construction Ironworker Intake/History Adult Building Construction Ironworker Intake/History Entered On: 11/13/2011 15:30 FINGERPRINT CLASSIFIER Performed On: 11/13/2011 15:27 FINGERPRINT CLASSIFIER by HELEN BLANDON Intake Chief Complaint : consult on control also wants a test Temperature Oral : 37.0C(Converted to: 98.6DegF) Peripheral Pulse Rate : 76/min Respiratory Rate : 22/min (HI) Systolic Blood Pressure : 116mmHg Diastolic Blood Pressure : 70mmHg NIBP Mean : 85mmHg Actual Weight : 113.4kg(Converted to: 250lb 0oz) Dosing Weight Clinic : 113.40kg HELEN BLANDON - 11/13/2011 15:27 FINGERPRINT CLASSIFIER General Info Information Given By : Patient Preferred Communication Mode : Verbal Languages : Lithuanian HELEN BLANDON - 11/13/2011 15:27 FINGERPRINT CLASSIFIER Subjective Pain Symptoms : No HELEN BLANDON - 11/13/2011 15:27 FINGERPRINT CLASSIFIER Dependent Habits Tobacco Use/Currently Using : No Exposure to Tobacco Smoke : Other: never Smoking Status : Never smoker HELEN BLANDON - 11/13/2011 15:27 FINGERPRINT CLASSIFIER Tobacco Use Grid Other Tobacco Frequency : non HELEN BLANDON - 11/13/2011 15:27 FINGERPRINT CLASSIFIER Caffeine Use Grid Caffeine Use : Current Type : Soft drinks Frequency : Daily HELEN BLANDON - 11/13/2011 15:27 FINGERPRINT CLASSIFIER Allergy Allergies (Active) NKA Estimated Onset Date: Unspecified ; Created By: CECIL ALEGRIA LPN; Reaction Status: Active ; Category: Drug ; Substance: NKA ; Type: Allergy ; Updated By: CECIL ALEGRIA LPN; Reviewed Date: 11/13/2011 15:27 FINGERPRINT CLASSIFIER Source: [employer] Document Id: [id number] FINGERPRINT CLASSIFIER!29 ERPRINT CLASSIFIER Miscellaneous - Conversion, Historical Provider Ser - 11/13/2011 1:58 PM FINGERPRINT CLASSIFIER PHQ-9 PHQ-9 Entered On: 11/14/2011 13:59 FINGERPRINT CLASSIFIER Performed On: 11/13/2011 13:58 FINGERPRINT CLASSIFIER by TOÑO FRAGA PHQ-9 Little interest or [...] : 13 TOÑO FRAGA - 11/14/2011 13:58 FINGERPRINT CLASSIFIER Source: [employer] Document Id: [id number] FINGERPRINT CLASSIFIER!12 documented in this encounter Plan of Treatment Upcoming Encounters Date Type Specialty Care Team Description 08/17/2022 Procedure visit Neurology Marina Winter M.D., M.P.H. [address], [place] [phone] (Wo rk) Scheduled Procedures Name Priority Associated Diagnoses Date/Time LIFT THIGH Excessive And Redundant Skin And Subcutaneous Tissue documented as of this encounter Procedures Procedure Name Priority Date/Time Associated Diagnosis Comme nts TEST, U Routine 11/13/2011 4:19 PM Resu lts for this FINGERPRINT CLASSIFIER procedure are i n the results section. documented in this encounter Results Test, Qualitative, Urine (11/13/2011 4:19 PM FINGERPRINT CLASSIFIER) [facility] gist Method Time Signature HXBeta-hCG Negative POWERCHART Qualitative Urine Specimen (Source) Anatomical Collection Method Collection Time Re ceived Time Location / / Volume Laterality Urine 11/13/2011 4:19 PM FINGERPRINT CLASSIFIER Lexii Minor P.A.-C., P.A. LAB URINE ORDERABLES Performing Organization Address City/State/ZIP Code Phon e Number POWERCHART documented in this encounter Visit Diagnoses Not on filedocumented in this encounter Additional Health Concerns Assessment Noted Time PHQ-9 Depression Total Score: 13 11/13/2011 1:58 PM CS T documented as of this encounter
--- OUTSIDE RECORDS SUMMARY | 2022-07-25 09:18 | XMS_ITS | Encounter Summary ---
:1985 Author Organization [facility] Address [address] [place] [address] Care Team Providers Name Role Phone Unavailable Primary Care Provider Unavailable Encounter Details Date Type Department Care Team Description 09/10/2012 Hospital Encounter HX [facility] Lexii French, P.A.-C., P.A. 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 - 09/10/2012 5:59 PM COLORING MACHINE OPERATOR Results Notification Document Contains Addenda Addendum by TOÑO FRAGA on 11 September 2012 09:16:42 COLORING MACHINE OPERATOR Patient notified 09/10/12. From: LEXII MINOR To: TOÑO FRAGA Sent: 09/10/2012 17:59:44 COLORING MACHINE OPERATOR ! Show up: 09/10/2012 23:59:44 [facility] [[email or web address]] Subject: Results Notification Actions: Notify patient of results Source: [facility] POWERCHART Document Id: [id number] documented in this encounter Plan of Treatment Upcoming Encounters Date Type Specialty Care Team Description 08/17/2022 Procedure visit Neurology Marina Winter M.D., M.P.H. [address] [phone] (Wo rk) Scheduled Procedures Name Priority Associated Diagnoses Date/Time LIFT THIGH Excessive And Redundant Skin And Subcutaneous Tissue documented as of this encounter Procedures Procedure Name Priority Date/Time Associated Diagnosis Comme nts TEST, U Routine 09/10/2012 3:26 PM Resu lts for this COLORING MACHINE OPERATOR procedure are i n the results section. documented in this encounter Results Test, Qualitative, Urine (09/10/2012 3:26 PM COLORING MACHINE OPERATOR) [facility] gist Method Time Signature HXBeta-hCG Weak Pos POWERCHART Qualitative Urine Specimen (Source) Anatomical Collection Method Collection Time Re ceived Time Location / / Volume Laterality Urine 09/10/2012 3:26 PM COLORING MACHINE OPERATOR Lexii Minor P.A.-C., P.A. LAB URINE ORDERABLES Performing Organization Address City/State/ZIP Code Phon e Number POWERCHART documented in this encounter Visit Diagnoses Not on filedocumented in this encounter Additional Health Concerns Assessment Noted Time PHQ-9 Depression Total Score: 17 05/07/2012 1:10 PM CD T documented as of this encounter
--- OUTSIDE RECORDS SUMMARY | 2022-07-25 09:18 | XMS_ITS | Encounter Summary ---
:1985 Author Organization [facility] Address [address] [place] [address] Care Team Providers Name Role Phone Unavailable [...] How often do you attend gnosticism or methodist Never 07/04/2019 services? 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 - 09/20/2012 4:36 PM CST [id number] CHIEF COMPLAINT / REASON FOR VISIT Abdominal [...] CALL MD On: 09/24/2012 08:03 AM Source: [facility] MHSDOLBEYNONRADSYS Document Id: [id number] ULATION TECHNICIAN documented in this encounter Miscellaneous Notes Miscellaneous - Conversion, Historical Provider Ser - 09/20/2012 4:41 PM FORMULATION TECHNICIAN Adult Bill Of Materials Clerk Intake/History Adult Bill Of Materials Clerk Intake/History Entered On: 09/20/2012 16:43 FORMULATION TECHNICIAN Performed On: 09/20/2012 16:41 FORMULATION TECHNICIAN by JOSE CARLOS MIKE Intake Chief Complaint : NOB 4 extreme cramping LMP Date : `2 Systolic Blood Pressure : 120mmHg Diastolic Blood Pressure : 70mmHg NIBP Mean : 87mmHg BP Location : Left upper extremity Blood Pressure Cuff Size : Large JOSE CARLOS MIKE - 09/20/2012 16:41 FORMULATION TECHNICIAN Subjective Pain Symptoms : No JOSE CARLOS MIKE - 09/20/2012 16:41 FORMULATION TECHNICIAN Dependent Habits Tobacco Use/Currently Using : No Exposure to Tobacco Smoke : Other: never Smoking Status : Never smoker JOSE CARLOS MIKE 09/20/2012 16:41 FORMULATION TECHNICIAN Tobacco Use Grid Other Tobacco Frequency : never JOSE CARLOS MIKE - 09/20/2012 16:41 FORMULATION TECHNICIAN Caffeine Use Grid Caffeine Use : Current Type : Soft drinks Frequency : Daily JOSE CARLOS MIKE - 09/20/2012 16:41 FORMULATION TECHNICIAN Allergy Allergies (Active) NKA Estimated Onset Date: Unspecified ; Created By: CECIL ALEGRIA LPN; Reaction Status: Active ; Category: Drug ; Substance: NKA ; Type: Allergy ; Updated By: CECIL ALEGRIA LPN; Reviewed Date: 09/10/2012 14:36 FORMULATION TECHNICIAN Source: [facility] Hypertension Diagn[facility] Document Id: [id number] documented in this encounter Plan of Treatment Upcoming Encounters Date Type Specialty Care Team Description 08/17/2022 Procedure visit Neurology Marina Winter M.D., M.P.H. [address] [phone] (Wo rk) Scheduled Procedures Name Priority Associated Diagnoses Date/Time LIFT THIGH Excessive And Redundant Skin And Subcutaneous Tissue documented as of this encounter Visit Diagnoses Not on filedocumented in this encounter Additional Health Concerns Assessment Noted Time PHQ-9 Depression Total Score: 17 05/07/2012 1:10 PM CD T documented as of this encounter
--- OUTSIDE RECORDS SUMMARY | 2022-07-25 09:18 | XMS_ITS | Encounter Summary ---
:1985 Author Organization [facility] Address [address] [place] [address] Care Team Providers Name Role Phone Unavailable Primary Care Provider Unavailable Encounter Details Date Type Department Care Team Description 09/10/2012 Hospital Encounter [facility]X [facility] Grandalfred, Lizandro Olguin, P.A.-C., P.A. [address] [place], [place] [address] (Wo rk) Social History [...] How often do you attend anabaptist or faith Never 07/04/2019 services? 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 - 09/10/2012 2:31 PM CST [id number] CHIEF COMPLAINT/REASON FOR VISIT Confirmation of . [...] Vera and establish ongoing obstetrical care with [facility]. She has had 2previous C-sections and so will follow with [facility]. Based on LMP dates of 08/09/2012 she [...] LEXII MINOR On: 09/12/2012 01:58 PM Source: [facility] MHSDOLBEYNONRADSYS Document Id: [id number] CLEANER documented in this encounter Miscellaneous Notes Miscellaneous - Conversion, Historical Provider Ser - 10/30/2012 2:37 PM SEED CLEANER Med Management Vistaril Document Contains Addenda Addendum by LEXII MINOR on 30 October 2012 15:08:44 SEED CLEANER Approved with modifications: Order Order: hydrOXYzine (Vistaril 25 mg oral capsule) 1 cap(s) PO 4xDay Qty: 30 cap(s) Refills: 0 Migraine headache and nausea Route To Pharmacy - [facility] Signed by LEXII MINOR 10/30/2012 15:08:26 From: KHLOE LOAIZA To: LEXII MINOR; Sent: 10/30/2012 14:37:50 SEED CLEANER Subject: Med Management Vistaril On hold pending signature Order Order: hydrOXYzine (Vistaril 25 mg oral capsule) 1 cap(s) PO 4xDay Qty: 30 cap(s) Refills: 5 Migraine headache Route To Pharmacy - [facility] Caller is: ( ) Patient ( ) Mother ( ) Father ( ) Spouse ( ) Daughter ( ) Son ( [facility] ) Pharmacy ( ) Other: Physician: Soila [...] back cell phone number ( ) Source: [facility] Concept Inbox Document Id: [id number] Miscellaneous - Lexii Minor, PMichael.-C., P.A. - 09/11/2012 5:28 PM SEED CLEANER Results Notification Document Contains Addenda Addendum by TOÑO FRAGA on 11 September 2012 17:44:16 SEED CLEANER Patient notified. From: LEXII MINOR To: TOÑO FRAGA Sent: 09/11/2012 17:28:30 SEED CLEANER ! Show up: 09/11/2012 23:28:30 [facility] Subject: Results Notification Actions: Notify patient of results Source: [facility] Concept Inbox Document Id: [id number] Electronically signed by Conversion, [facility] Senior Relationship Manager [id number] at 04/07/2017 6:55 PM CDT Miscellaneous - Conversion, Historical Provider Ser - 09/10/2012 2:36 PM SEED CLEANER Adult Silverer Intake/History Adult Silverer Intake/History Entered On: 09/10/2012 14:39 SEED CLEANER Performed On: 09/10/2012 14:36 SEED CLEANER by TOÑO FRAGA Intake Chief Complaint : [...] Clinic : 129.00kg TOÑO FRAGA 09/10/2012 14:36 SEED CLEANER General Info Information Given By : Patient Preferred Communication Mode : Verbal Languages : Bangladeshi TOÑO FRAGA - 09/10/2012 14:36 SEED CLEANER Subjective Pain Symptoms : No TOOÑ FRAGA - 09/10/2012 14:36 SEED CLEANER Dependent Habits Tobacco Use/Currently Using : No Exposure to Tobacco Smoke : Other: never Smoking Status : Never smoker TOÑO FRAGA - 09/10/2012 14:36 SEED CLEANER Tobacco Use Grid Other Tobacco Frequency : non TOÑO FRAGA - 09/10/2012 14:36 SEED CLEANER Caffeine Use Grid Caffeine Use : Current Type : Soft drinks Frequency : Daily TOÑO FRAGA - 09/10/2012 14:36 SEED CLEANER Allergy Allergies (Active) NKA Estimated Onset Date: Unspecified ; Created By: CECIL ALEGRIA LPN; Reaction Status: Active ; Category: Drug ; Substance: NKA ; Type: Allergy ; Updated By: CECIL ALEGRIA LPN; Reviewed Date: 09/10/2012 14:36 SEED CLEANER Source: [facility] POWERCHART Document Id: [id number] documented in this encounter Plan of Treatment Upcoming Encounters Date Type Specialty Care Team Description 08/17/2022 Procedure visit Neurology Marina Winter M.D., M.P.H. [address] [place], [place] [phone] (Wo rk) Scheduled Procedures Name Priority Associated Diagnoses Date/Time LIFT THIGH Excessive And Redundant Skin And Subcutaneous Tissue documented as of this encounter Procedures Procedure Name Priority Date/Time Associated Diagnosis Comme nts N GONOR AMP SRC Routine 09/10/2012 3:23 PM Result s for this SEED CLEANER procedure are i n the results section. N GONOR AMP DNA Routine 09/10/2012 3:23 PM Result s for this SEED CLEANER procedure are i n the results section. C TRACH AMP SRC Routine 09/10/2012 3:23 PM Result s for this SEED CLEANER procedure are i n the results section. C TRACH AMP RNA Routine 09/10/2012 3:23 PM Result s for this SEED CLEANER procedure are i n the results section. documented in this encounter Results HX-N gonor Amp DNA (09/10/2012 3:23 PM SEED CLEANER) athologist Signature HXN gonor Amp Negative POWERCHART [place] Specimen (Source) Anatomical Collection Method Collection Time Re ceived Time Location / / Volume Laterality 09/10/2012 3:23 PM SEED CLEANER Narrative POWERCHART - 09/11/2012 3:53 PM SEED CLEANER Test Performed by: [place] [address] Perch Mender: Federico anne III, M.D. Lexii Minor P.A.-C., P.A. LAB HISTORICAL ORDERS Performing Organization Address City/[facility]/ZIP Code Phon e Number POWERCHART HX-N gonor Amp Src (09/10/2012 3:23 PM SEED CLEANER) athologist Signature HXN gonor Amp urine POWERCHART Src-[place] Specimen (Source) Anatomical Collection Method Collection Time Re ceived Time Location / / Volume Laterality 09/10/2012 3:23 PM SEED CLEANER Lexii Minor P.A.-C., P.A. LAB HISTORICAL ORDERS Performing Organization Address City/State/ZIP Code Phon e Number POWERCHART HX-C trach Amp RNA (09/10/2012 3:23 PM SEED CLEANER) [facility] gist Method Time Signature Chlamydia Negative POWERCHART trachomatis amplified RNA Specimen (Source) Anatomical Collection Method Collection Time Re ceived Time Location / / Volume Laterality 09/10/2012 3:23 PM SEED CLEANER Lexii Minor P.A.-C., P.A. LAB HISTORICAL ORDERS Performing Organization Address City/State/ZIP Code Phon e Number POWERCHART HX-C trach Amp Src (09/10/2012 3:23 PM SEED CLEANER) P athologist Signature HXC trach Amp urine POWERCHART [facility]-[place] Specimen (Source) Anatomical Collection Method Collection Time Re ceived Time Location / / Volume Laterality 09/10/2012 3:23 PM SEED CLEANER Lexii Minor P.A.-C., P.A. LAB HISTORICAL ORDERS Performing Organization Address City/State/ZIP Code Phon e Number POWERCHART documented in this encounter Visit Diagnoses Not on filedocumented in this encounter Additional Health Concerns Assessment Noted Time PHQ-9 Depression Total Score: 17 05/07/2012 1:10 PM CD T documented as of this encounter
--- OUTSIDE RECORDS SUMMARY | 2022-07-25 09:18 | XMS_ITS | Encounter Summary ---
:1985 Author Organization [facility] Address [address] [place] [address] Care Team Providers Name Role Phone Unavailable Primary Care Provider Unavailable Encounter Details Date Type Department Care Team Description 05/07/2012 Hospital Encounter HX [facility] Grandalfred, Lizandro Olguin, P.A.-C., P.A. [address] [place], [place] [phone] (Wo rk) Social History [...] How often do you attend jainism or spiritism Never 07/04/2019 services? 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 - 05/07/2012 12:00 AM CDT [id number] CHIEF COMPLAINT / REASON FOR VISIT Anxiety [...] houses as able. She does have a 34-qmcmg-rby son. There has been a bit of confusion with regards to Dry Cleaner and assistance. I did state I would contact Dry Cleaner on her behalf just to follow up [...] pattern and insight. Appropriate interaction with her 62-[id number]-skt son. IMPRESSION/REPORT/PLAN 1) Increased anxiety and depression with social stressors. PLAN: I will start her on venlafaxine 37.5 mg daily for 1 week and then increase to 75 mg daily thereafter. Usual risks, benefits, side effects and directions were discussed. I will go ahead and contact the [facility] Dry Cleaner to inquire about financial options for her. At this point I do not feel there is any neglect of her children however she does need to have an appropriate place to stay. Referral to Dry Cleaner was made. 2) Amenorrhea. PLAN: Urine test [...] JENAE MINOR On: 05/19/2012 11:06 AM Source: [facility] MHSDOLBEYNONRADSYS Document Id: [id number] documented in this encounter Miscellaneous Notes Miscellaneous - Qi Ibarra M.D. - 05/10/2012 5:53 PM CDT Results Notification Document Contains Addenda Addendum by REBA MELENDEZ on 13 May 2012 16:50:40 CDT Pt notified From: QI IBARRA MD To: REBA MELENDEZ Sent: 05/10/2012 17:53:24 CDT ! Show up: 05/10/2012 22:53:24 [facility] Subject: Results Notification Actions: Notify patient of results Source: [facility] POWERCHART Document Id: [id number] Electronically signed by Maria R [facility] Electric Motor Analyst [id number] at 04/08/2017 4:09 AM CDT Miscellaneous - Conversion, Historical Provider Ser - 05/07/2012 1:10 PM CDT PHQ-9 PHQ-9 Entered On: 05/07/2012 13:10 CDT Performed On: 05/07/2012 13:10 CDT by TOÑO FRAGA PHQ-9 Little interest [...] TOÑO FRAGA - 05/07/2012 13:10 CDT Source: [facility] REVENTIVECHART Document Id: [id number] Miscellaneous - Jenae Minor P.A.-C., P.A. - 05/07/2012 11:16 AM CDT Results Notification Document Contains Addenda Addendum by TOÑO FRAGA on 07 May 2012 14:36:16 CDT patient notified. From: JENAE MINOR To: TOÑO FRAGA Sent: 05/07/2012 11:16:31 CDT ! Show up: 05/07/2012 16:16:31 [facility] Subject: Results Notification Actions: Notify patient of results Source: [facility] POWERCHART Document Id: [id number] Miscellaneous - Jenae Minor P.A.-C., P.A. - 05/07/2012 10:45 AM CDT Ambulatory Patient Summary [facility] [address] [address] Visit Information Name: NANCY ROBINS Current Date: [...] Appointments found Your Goals/Additional instructions: Source: [facility] POWERCHART Document Id: [id number] Miscellaneous - Jenae Minor P.A.-C., P.A. - 05/07/2012 10:45 AM CDT Ambulatory Depart Summary [facility] [address] [place] [address] Visit Information Name: NANCY ROBINS Visit Date: [...] provider for clarification. Additional Information: Source: [facility] POWERCHART Document Id: [id number] Miscellaneous - Conversion, Historical Provider Ser - 05/07/2012 9:50 AM CDT Adult Wire Temperer Intake/History Adult Wire Temperer Intake/History Entered On: 05/07/2012 9:53 CDT Performed [...] Preferred Communication Mode : Verbal Languages : Moroccan TOÑO FRAGA 05/07/2012 9:50 CDT Subjective Pain [...] LPN; Reviewed Date: 05/07/2012 9:49 CDT [facility] [place] Document Id: [id number] documented in this encounter Plan of Treatment Upcoming Encounters Date Type Specialty Care Team Description 08/17/2022 Procedure visit Neurology Marina Winter M.D., M.P.H. [address] [phone] (Wo rk) [...] 05/10/2012 2:00 PM CDT Test Performed by: [address], [place] [address] Night Custodian: Tara Vargas, Ph. D. Jenae Harding.HudsonC., P.A. [...] HX-C Trach RNA (05/07/2012 11:05 AM CDT) [facility] Method Time Signature Chlamydia Negative POWERCHART [...] Test, Qualitative, Urine (05/07/2012 11:05 AM CDT) [facility] gist Method Time Signature HXBeta-hCG Negative [...]
--- OUTSIDE RECORDS SUMMARY | 2022-07-25 09:18 | XMS_ITS | Encounter Summary ---
:1985 Author Organization [facility] Address [address] [place] [address] Care Team Providers Name Role Phone Unavailable [...] How often do you attend sikh or hindu Never 07/04/2019 services? Do you [...] at Date Recorded Female 10/16/2018 10:53 AM RECTIFICATION PRINTER documented as of this encounter Plan of Treatment Upcoming Encounters Date Type Specialty Care Team Description 08/17/2022 Procedure visit Neurology Marina Winter M.D., M.P.H. [address] [phone] (Wo rk) Scheduled Procedures Name Priority Associated Diagnoses Date/Time LIFT THIGH Excessive And Redundant Skin And Subcutaneous Tissue documented as of this encounter Procedures Procedure Name Priority Date/Time Associated Diagnosis Comme nts EXTRA SST Routine 09/20/2012 3:06 PM Results f or this RECTIFICATION PRINTER procedure are i n the results section. BHCG (BETA-HUMAN Routine 09/20/2012 3:06 PM Resul ts for this CHORIONIC RECTIFICATION PRINTER procedure are i n GONADOTROPIN), the results SUSAN, S section. documented in this encounter Results EXTRA SST (09/20/2012 3:06 PM RECTIFICATION PRINTER) P athologist Signature HXExtra Tube Extra Tube POWERCHART Specimen (Source) Anatomical Collection Method Collection Time Re ceived Time Location / / Volume Laterality Blood 09/20/2012 3:06 PM RECTIFICATION PRINTER Samir Call M.D. LAB HISTORICAL ORDERS Performing Organization Address City/[facility] Code Phon e Number POWERCHART bHCG (Beta-Human Chorionic Gonadotropin), Quantitative (09/20/2012 3:06 PM RECTIFICATION PRINTER) [facility] gist Method Time Signature Beta-HCG, see report [...] / Volume Laterality Blood 09/20/2012 3:06 PM RECTIFICATION PRINTER Samir Call M.D. LAB BLOOD ADD-ON Performing Organization Address City/State/ZIP Code Phon e Number POWERCHART documented in this encounter Visit Diagnoses Not on filedocumented in this encounter Additional Health Concerns Assessment Noted Time PHQ-9 Depression Total Score: 17 05/07/2012 1:10 PM CD T documented as of this encounter
--- OUTSIDE RECORDS SUMMARY | 2022-07-25 09:18 | XMS_ITS | Encounter Summary ---
:1985 Author Organization [facility] Address [address] [place] [address] Care Team Providers Name Role Phone Unavailable Primary Care Provider Unavailable Encounter Details Date Type Department Care Team Description 03/01/2012 Hospital Encounter HX [facility] Lexii French, P.A.-C., P.A. [address] [place], [place] [phone] (Wo rk) Social History [...] How often do you attend restorationist or confucianist Never 07/04/2019 services? 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 - 03/09/2012 8:10 AM CDT Results Notification Document Contains Addenda Addendum by TOÑO FRAGA on 11 Mar 2012 09:28:00 CDT Lexii Pineda Spoke with patient last week. patient was notified of results. From: LEXII MINOR To: TOÑO FRAGA Sent: 03/09/2012 08:10:23 CDT ! Show up: 03/09/2012 13:10:23 [facility] Subject: Results Notification Actions: Notify patient of results Source: [facility] POWERCHART Document Id: [id number] Electronically signed by Conversion, [facility] Shoveler [id number] at 04/08/2017 8:23 AM CDT documented in this encounter Plan of Treatment Upcoming Encounters Date Type Specialty Care Team Description 08/17/2022 Procedure visit Neurology Marina Winter M.D., M.P.H. [address] [phone] (Wo rk) Scheduled Procedures [...] 03/04/2012 4:52 PM CDT Test Performed by: [facility] [address], [place] [address] Speech Language Pathologist Assistant: Tara Vargas, Ph. D. Lexii Minor P.A.-C., [...] HX-C Trach RNA (03/01/2012 4:33 PM CDT) [facility] gist Method Time Signature Chlamydia Negative [...] Test, Qualitative, Urine (03/01/2012 4:33 PM CDT) [facility] gist Method Time Signature HXBeta-hCG Negative [...]
--- OUTSIDE RECORDS SUMMARY | 2022-07-25 09:18 | XMS_ITS | Encounter Summary ---
:[address] [facility] Address [address] [place] [address] Care Team Providers Name Role Phone Unavailable Primary Care Provider Unavailable Encounter Details Date Type Department Care Team Description 12/21/2011 Hospital Encounter HX [facility] Sj [place], P.ARodrigo-CRodrigo [address] [place] [phone] (Wo rk) Social History Tobacco [...] How often do you attend zoroastrianism or buddhist Never 07/04/2019 services? 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 documented as of this encounter Last Filed Vital Signs Vital Sign Reading Time Taken Comments Blood Pressure 126/66 12/21/2011 1:25 PM BUILD AUTOMATION ENGINEER Pulse 76 12/21/2011 1:25 PM BUILD AUTOMATION ENGINEER Temperature - - Respiratory Rate - - Oxygen Saturation - - Inhaled Oxygen Concentration - - Weight - - Height - - Body Mass Index - - documented in this encounter Miscellaneous Notes Miscellaneous - Mamie Lawton - 12/21/2011 2:06 PM CST School or Work Excuse School or Work Excuse Entered On: 12/21/2011 14:07 BUILD AUTOMATION ENGINEER Performed On: 12/21/2011 14:06 BUILD AUTOMATION ENGINEER by MAMIE LAWTON School or Work Excuse Date Patient Seen : 12/21/2011 BUILD AUTOMATION ENGINEER Date of Return to School/Work Without Restrictions : 12/25/2011 BUILD AUTOMATION ENGINEER MAMIE LAWTON - 12/21/2011 14:06 BUILD AUTOMATION ENGINEER Source: [facility] [employer] SoftwareCHART Document Id: [id number] BUILD AUTOMATION ENGINEER!4 D AUTOMATION ENGINEER Miscellaneous - Chapis Davalos L.P.N. - 12/21/2011 1:25 PM BUILD AUTOMATION ENGINEER Adult Pot Operator Intake/History Adult Pot Operator Intake/History Entered On: 12/21/2011 13:32 BUILD AUTOMATION ENGINEER Performed On: 12/21/2011 13:25 BUILD AUTOMATION ENGINEER by CHAPIS DAVAOLS Intake Chief Complaint : Emotionally unstable -having home problems. Temperature Oral : 36.7C(Converted to: 98.1DegF) Peripheral Pulse Rate : 76/min Systolic Blood Pressure : 126mmHg Diastolic Blood Pressure : 66mmHg NIBP Mean : 86mmHg CHAPIS DAVALOS - 12/21/2011 13:25 BUILD AUTOMATION ENGINEER Subjective Pain Symptoms : No CHAPIS DAVALOS - 12/21/2011 13:25 BUILD AUTOMATION ENGINEER Dependent Habits Tobacco Use/Currently Using : No Exposure to Tobacco Smoke : Other: never Smoking Status : Never smoker CHAPIS DAVALOS - 12/21/2011 13:25 BUILD AUTOMATION ENGINEER Tobacco Use Grid Other Tobacco Frequency : non CHAPIS DAVALOS - 12/21/2011 13:25 BUILD AUTOMATION ENGINEER Caffeine Use Grid Caffeine Use : Current Type : Soft drinks Frequency : Daily CHAPIS DAVALOS - 12/21/2011 13:25 BUILD AUTOMATION ENGINEER Allergy Allergies (Active) NKA Estimated Onset Date: Unspecified ; Created By: CECIL ALEGRIA LPN; Reaction Status: Active ; Category: Drug ; Substance: NKA ; Type: Allergy ; Updated By: CECIL ALEGRIA LPN; Reviewed Date: 11/13/2011 15:27 BUILD AUTOMATION ENGINEER Source: [facility] POWERCHART Document Id: [id number] BUILD AUTOMATION ENGINEER!22 D AUTOMATION ENGINEER documented in this encounter Plan of Treatment Upcoming Encounters Date Type Specialty Care Team Description 08/17/2022 Procedure visit Neurology Marina Winter M.D., M.P.H. [address] [place], [place] [phone] (Wo rk) Scheduled Procedures Name Priority Associated Diagnoses Date/Time LIFT THIGH Excessive And Redundant Skin And Subcutaneous Tissue documented as of this encounter Visit Diagnoses Not on filedocumented in this encounter Additional Health Concerns Assessment Noted Time PHQ-9 Depression Total Score: 13 11/13/2011 1:58 PM CS T documented as of this encounter
--- OUTSIDE RECORDS SUMMARY | 2022-07-25 09:18 | XMS_ITS | Encounter Summary ---
:1985 Author Organization [facility] Address [address] [place] [address] Care Team Providers Name Role Phone Unavailable Primary Care Provider Unavailable Encounter Details Date Type Department Care Team Description 01/29/2012 Hospital Encounter HX [facility] FAMILYPRA Grandalfred, Lizandro Olguin, P.A.-C., P.A. [address], [place] [address] (Wo rk) Social History [...] How often do you attend presybeterian or presybeterian Never 07/04/2019 services? 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 - 01/29/2012 12:00 AM CDT [id number] Chief complaint today is irregular periods, discuss [...] LEXII MINOR On: 02/02/2012 04:01 PM Source: [facility] MHSDOLBEYNONRADSYS Document Id: [id number] documented in this encounter Miscellaneous Notes Miscellaneous - Lexii Minor P.A.-C., P.A. - 01/29/2012 5:47 PM CDT Ambulatory Patient Summary [facility] [address] [place], [place] [id number] Visit Information Name: NANCY ROBINS Current Date: [...] No Appointments found Your Goals/Additional instructions: Source: [facility] POWERCHART Document Id: [id number] Miscellaneous - Lexii Minor P.A.-C., P.A. - 01/29/2012 5:47 PM CDT Ambulatory Depart Summary [address] [address] Visit Information Name: NANCY ROBINS Visit Date: [...] your provider for clarification. Additional Information: Source: [facility] StyliticsCHART Document Id: [id number] Miscellaneous - Conversion, Historical Provider Ser - 01/29/2012 4:39 PM CDT Adult Help Aid Intake/History Adult Help Aid Intake/History Entered On: 01/29/2012 16:42 CDT Performed [...] Preferred Communication Mode : Verbal Languages : Thai SAVITA FRAGAA - 01/29/2012 16:39 CDT Subjective [...] LPN; Reviewed Date: 01/29/2012 16:38 CDT Source: [facility] POWERCHART Document Id: [id number] CDT!33 documented in this encounter Plan of Treatment Upcoming Encounters Date Type Specialty Care Team Description 08/17/2022 Procedure visit Neurology Marina Winter M.D., M.P.H. [address] [place] [phone] (Wo rk) Scheduled Procedures Name Priority [...] RNA (01/29/2012 5:51 PM CDT) athologist Signature NRdorigo leon, Positive POWERCHART Misc, Amplified RNA Specimen (Source) Anatomical Collection Method Collection Time Re ceived Time Location / / Volume Laterality 01/29/2012 5:51 PM CDT Narrative POWERCHART - 02/01/2012 3:06 PM CDT Test Performed by: [facility] [place] [address], [place] [address] Benefit Specialist: Tara Vargas, Ph. D. Lexii Minor P.A.-C., P.A. LAB HISTORICAL ORDERS Performing Organization Address City/State/ZIP Code Phon e Number POWERCHART HX-Ngonorr RNA Src (01/29/2012 5:51 PM CDT) athologist Signature Specimen urine POWERCHART Specimen (Source) Anatomical Collection Method Collection Time Re ceived Time Location / / Volume Laterality 01/29/2012 5:51 PM CDT Lexii Marie.A.-C., P.A. LAB HISTORICAL ORDERS Performing Organization Address [facility] Code Phon e Number POWERCHART HX-C Trach RNA (01/29/2012 5:51 PM CDT) [facility] Method Time Signature Chlamydia Negative POWERCHART trachomatis amplified RNA Specimen (Source) Anatomical Collection Method Collection Time Re ceived Time Location / / Volume Laterality 01/29/2012 5:51 PM CDT Lexii Marie.A.-C., P.A. LAB HISTORICAL ORDERS Performing Organization Address [facility] Code Phon e Number POWERCHART HX-C Trach RNA Src (01/29/2012 5:51 PM CDT) athologist Signature Specimen urine POWERCHART Specimen (Source) Anatomical Collection Method Collection Time Re ceived Time Location / / Volume Laterality 01/29/2012 5:51 PM CDT Lexii Marie.A.-C., P.A. LAB HISTORICAL ORDERS Performing Organization Address City/[facility] Code Phon e Number POWERCHART Test, Qualitative, Urine (01/29/2012 5:51 PM CDT) [facility] Method Time Signature HXBeta-hCG Negative POWERCHART Qualitative Urine Specimen (Source) Anatomical Collection Method Collection Time Re ceived Time Location / / Volume Laterality Urine 01/29/2012 5:51 PM CDT Lexii Marie.A.-C., P.A. LAB URINE ORDERABLES Performing Organization Address City/[facility]/ZIP Code Phon e Number POWERCHART documented in this encounter Visit Diagnoses Not on filedocumented in this encounter Additional Health Concerns Assessment Noted Time PHQ-9 Depression Total Score: 13 11/13/2011 1:58 PM CS T documented as of this encounter
--- OUTSIDE RECORDS SUMMARY | 2022-07-25 09:18 | XMS_ITS | Encounter Summary ---
:1985 Author Organization [facility] Address [address] [place] [address] Care Team Providers Name Role Phone Unavailable Primary Care Provider Unavailable Encounter Details Date Type Department Care Team Description 02/02/2012 Hospital Encounter HX [facility] OW[facility] FAMILYPRA Grandalfred, Lizandro Olguin, P.A.-C., P.A. [address], [place] [address] (Wo rk) Social History [...] How often do you attend anabaptism or christianity Never 07/04/2019 services? 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 [address] [place] [phone] (Wo rk) Scheduled Procedures Name Priority Associated Diagnoses Date/Time LIFT THIGH Excessive And Redundant Skin And Subcutaneous Tissue documented as of this encounter Visit Diagnoses Not on filedocumented in this encounter Additional Health Concerns Assessment Noted Time PHQ-9 Depression Total Score: 13 11/13/2011 1:58 PM CS T documented as of this encounter
--- OUTSIDE RECORDS SUMMARY | 2022-07-25 09:18 | XMS_ITS | Encounter Summary ---
:1985 Author Organization [facility] Address [address] [place] [address] Care Team Providers Name Role Phone Unavailable Primary Care Provider Unavailable Encounter Details Date Type Department Care Team Description 09/27/2011 Hospital Encounter HX [facility] OWOC FAMILYPRA Grandalfred, Lizandro Olguin, P.A.-C., P.A. [address], [place] [phone] (Wo rk) Social History [...] How often do you attend buddhist or alevism Never 07/04/2019 services? 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 - 09/27/2011 12:00 AM CST [id number] CHIEF COMPLAINT / REASON FOR VISIT Vaginitis, [...] LEXII MINOR On: 10/03/2011 08:08 AM Source: [facility] MHSDOLBEYNONRADSYS Document Id: [id number] NER OPERATOR documented in this encounter Miscellaneous Notes Miscellaneous - Lexii Minor P.A.-C., P.A. - 10/02/2011 4:47 PM CLEANER OPERATOR Results Notification Document Contains Addenda Addendum by TOÑO FRAGA on 02 October 2011 16:52:21 CLEANER OPERATOR patient notified. From: LEXII MINOR To: TOÑO FRAGA Sent: 10/02/2011 16:47:39 CLEANER OPERATOR ! Show up: 10/02/2011 22:47:39 [facility] Subject: Results Notification Actions: Notify patient of results Due Date/Time: 10/02/2011 17:47:00 CLEANER OPERATOR Source: [facility] Retail OptimizationCHART Document Id: [id number] Miscellaneous - Lexii Minor PMichael.-Lexy., P.A. - 09/27/2011 1:16 PM CLEANER OPERATOR Results Notification Document Contains Addenda Addendum by TOÑO FRAGA on 27 September 2011 13:50:01 CLEANER OPERATOR Patient notified. From: LEXII MINOR To: TOÑO FRAGA Sent: 09/27/2011 13:16:55 CLEANER OPERATOR ! Show up: 09/27/2011 19:16:55 [facility] Subject: Results Notification Actions: Notify patient of results Due Date/Time: 09/27/2011 14:16:00 CLEANER OPERATOR Source: [facility] Retail OptimizationCHART Document Id: [id number] Miscellaneous - Conversion, Historical Provider Ser - 09/27/2011 10:33 AM CLEANER OPERATOR Adult Side Laster Tack Intake/History Adult Side Laster Tack Intake/History Entered On: 09/27/2011 10:35 CLEANER OPERATOR Performed On: 09/27/2011 10:33 CLEANER OPERATOR by TOÑO FRAGA Intake Chief Complaint [...] : 112.60kg TOÑO FRAGA - 09/27/2011 10:33 CLEANER OPERATOR General Info Information Given By : Patient Preferred Communication Mode : Verbal Languages : Estonian TOÑO FRAGA - 09/27/2011 10:33 CLEANER OPERATOR Subjective Pain Symptoms : No SAVITA FRAGAA 09/27/2011 10:33 CLEANER OPERATOR Dependent Habits Tobacco Use/Currently Using : No Smoking Status : Never smoker TOÑO FRAGA 09/27/2011 10:33 CLEANER OPERATOR Tobacco Use Grid Other Tobacco Frequency : non SAVITA FRAGAA 09/27/2011 10:33 CLEANER OPERATOR Caffeine Use Grid Caffeine Use : Current Type : Soft drinks Frequency : Daily TOÑO FRAGA 09/27/2011 10:33 CLEANER OPERATOR Allergy Allergies (Active) NKA Estimated Onset Date: Unspecified ; Created By: CECIL ALEGRIA LPN; Reaction Status: Active ; Category: Drug ; Substance: NKA ; Type: Allergy ; Updated By: CECIL ALEGRIA LPN; Reviewed Date: 09/27/2011 10:33 CLEANER OPERATOR Source: [facility] POWERCHART Document Id: [id number] CLEANER OPERATOR!30 documented in this encounter Plan of Treatment Upcoming Encounters Date Type Specialty Care Team Description 08/17/2022 Procedure visit Neurology Marina Winter M.D., M.P.H. [address] [phone] (Wo rk) Scheduled Procedures Name Priority Associated Diagnoses Date/Time LIFT THIGH Excessive And Redundant Skin And Subcutaneous Tissue documented as of this encounter Visit Diagnoses Not on filedocumented in this encounter Additional Health Concerns Assessment Noted Time PHQ-9 Depression Total Score: 11 08/15/2011 9:20 AM CD T documented as of this encounter
--- OUTSIDE RECORDS SUMMARY | 2022-07-25 09:19 | XMS_ITS | Encounter Summary ---
:1985 Author Organization [facility] Address [address] [place] [address] Care Team Providers Name Role Phone Unavailable Primary Care Provider Unavailable Encounter Details Date Type Department Care Team Description 10/05/2010 Hospital Encounter HX [facility] Steve Dupont M.D. 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 - 10/05/2010 12:00 AM CST [id number] IMPRESSION/REPORT/PLAN Stable Plan: Follow up in 1 [...] DIAZ MD On 10/11/2010 09:31 AM Source: [facility] MHSDOLBEYNONRADSYS Document Id: [id number] ANCE ANIMAL DAMAGE CONTROL AGENT documented in this encounter Miscellaneous Notes Miscellaneous - Aidan Diaz M.D. - 10/05/2010 1:43 PM CST Ambulatory [place] [address] Visit Information Name: NANCY CAMPBELL Current Date: 10/05/2010 13:43:05 Primary Care Provider: AIDAN DIAZ MD [id number] Your Medications Here is a list of [...] Time Location Reason Provider 10/11/2010 10:30 [facility] MH TEACHER diabetic education per Dr. Diaz/seeing him after Diana Morris CNM 10/11/2010 11:00 [facility] MH TEACHER ob ultrasound. I also wish her to see marisa quiles that day to get set upwith a glucometer Aidan Diaz MD Your Goals/Additional instructions: Source: [facility] POWERCHART Document Id: [id number] Miscellaneous - Aidan Diaz M.D. - 10/05/2010 1:43 PM CST [place] [address] Visit Information Name: NANCY CAMPBELL Current Date: 10/05/2010 13:43:04 Primary Care Provider: AIDAN DIAZ MD [phone] CAMPBELL NANCY ELIZABETH has been given the [...] to the patient and/or family, guardian/caregiver. Source: [facility] POWERCHART Document Id: [id number] Miscellaneous - Cecil Saleh, L.P.N. - 10/05/2010 1:22 PM CST Adult Desk Representative Intake/History Adult Desk Representative Intake/History Entered On: 10/05/2010 13:23 NUISANCE ANIMAL DAMAGE CONTROL AGENT Performed On: 10/05/2010 13:22 NUISANCE ANIMAL DAMAGE CONTROL AGENT by CECIL SALEH LPN Intake Chief Complaint: OB visit LMP Date: 05/01/2010 Systolic Blood Pressure: 120mmHg Diastolic Blood Pressure: 66mmHg NIBP Mean: 84mmHg BP Location: Right upper extremity Actual Weight: 114.600kg(Converted to: 252lb 10oz) Dosing Weight Clinic: 114.60kg CECIL SALEH LPN - 10/05/2010 13:22 NUISANCE ANIMAL DAMAGE CONTROL AGENT Subjective Pain Symptoms: No CECIL SALEH LPN - 10/05/2010 13:22 NUISANCE ANIMAL DAMAGE CONTROL AGENT Dependent Habits Tobacco Use/Currently Using: No CECIL SALEH LPN - 10/05/2010 13:22 NUISANCE ANIMAL DAMAGE CONTROL AGENT Caffeine Use Grid Caffeine Use: Current Type: Soft drinks Frequency: Daily CECIL SALEH LPN - 10/05/2010 13:22 NUISANCE ANIMAL DAMAGE CONTROL AGENT Allergies Allergies (Active) NKA Estimated Onset Date: Unspecified ; Created By: CECIL SALEH LPN; Reaction Status: Active ; Category: Drug ; Substance: NKA ; Type: Allergy ; Updated By: CECIL SALEH LPN; Reviewed Date: 09/15/2010 10:22 NUISANCE ANIMAL DAMAGE CONTROL AGENT Source: [facility] [employer] Document Id: [id number] NUISANCE ANIMAL DAMAGE CONTROL AGENT!19 ANCE ANIMAL DAMAGE CONTROL AGENT documented in this encounter Plan of Treatment Upcoming Encounters Date Type Specialty Care Team Description 08/17/2022 Procedure visit Neurology Marina Winter M.D., M.P.H. [address] [phone] (Wo rk) Scheduled Procedures Name Priority Associated Diagnoses Date/Time LIFT THIGH Excessive And Redundant Skin And Subcutaneous Tissue documented as of this encounter Visit Diagnoses Not on filedocumented in this encounter
--- OUTSIDE RECORDS SUMMARY | 2022-07-25 09:19 | XMS_ITS | Encounter Summary ---
:1985 Author Organization [facility] Address [address] [place] [address] Care Team Providers Name Role Phone Unavailable Primary Care Provider Unavailable Encounter Details Date Type Department Care Team Description 08/03/2010 Hospital Encounter HX [facility] Steve Dupont M.D. [address] [place] [address] (Wo rk) Social History Tobacco [...] How often do you attend denominational or nondenominational Never 07/04/2019 services? 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 - 08/03/2010 12:00 AM CDT [id number] IMPRESSION/REPORT/PLAN H&P is done here today. She [...] DIAZ MD On 08/04/2010 03:33 PM Source: [facility] MHSDOLBEYNONRADSYS Document Id: [id number] documented in this encounter Procedure Notes Conversion, [...] HEART LPN - 08/03/2010 9:31 CDT Source: [facility] POWERCHART Document Id: [id number] CDT!14 documented in this encounter Miscellaneous Notes Miscellaneous - Aidan Diaz M.D. - 08/03/2010 9:38 AM CDT Ambulatory [place] [address] Visit Information Name: NANCY CAMPBELL Current Date: 08/03/2010 09:38:35 Primary Care Provider: AIDAN DIAZ MD [id number] Your Medications Here is a list of [...] No Appointments found Your Goals/Additional instructions: Source: [facility] POWERCHART Document Id: [id number] Electronically signed by Maria R [facility] Wash Mill Operator [id number] at 04/09/2017 1:22 AM CDT Miscellaneous - Aidan Diaz M.D. - 08/03/2010 9:38 AM CDT Ambulatory Depart Summary [address] [address] Visit Information Name: NANCY CAMPBELL Current Date: 08/03/2010 09:38:35 Primary Care Provider: AIDAN DIAZ MD [id number] NANCY CAMPBELL has been given the following [...] to the patient and/or family, guardian/caregiver. Source: [facility] POWERCHART Document Id: [id number] Electronically signed by Maria R [facility] Wash Mill Operator [id number] at 04/09/2017 1:22 AM CDT Miscellaneous - Cecil Saleh, L.P.N. - 08/03/2010 9:11 AM CDT Adult Manager Mutual Fund Intake/History Adult Manager Mutual Fund Intake/History Entered On: 08/03/2010 9:15 CDT Performed [...] LPN; Reviewed Date: 08/03/2010 9:10 CDT Source: [facility] POWERCHART Document Id: [id number] CDT!20 documented in this encounter Plan of Treatment Upcoming Encounters Date Type Specialty Care Team Description 08/17/2022 Procedure visit Neurology Marina Winter M.D., M.P.H. [address] [phone] (Wo rk) Scheduled Procedures Name Priority [...] Thin Prep, Pap (08/03/2010 10:38 AM CDT) [facility] Method Time Signature Interpretation Performed POWERCHART Comment: Test Performed by: [facility] Dpt of Lab Med and Pathology [address] [place] [address] Billing Control Clerk: Federico anne III, M.D. Specimen Anatomical Collection Method Collection Time Receive d Time (Source) Location / / Volume Laterality Cervix/Endocervi 08/03/2010 10:38 010 6:14 x AM CDT PM CDT Historical Provider LAB HISTORICAL ORDERS Performing Organization Address City/State/ZIP Code Phon e Number POWERCHART ThinPrep Screen HPV Reflex (08/03/2010 10:38 AM CDT) [facility] Method Time Signature Interpretation [id number] POWERCH[facility] POWERCHART [facility] Comment: A. ??ThinPrep Pap Test Screen (Cervical/ Endocervical HPV Reflex): Satisfactory for evaluation. Partially obscuring bacteria. Partially obscuring inflammation. Negative for intraepithelial lesion or m alignancy. Reactive/Reparative squamous cells prese nt. Reactive glandular cells present. HXThPrep Scrn [facility] See Comment [facility] RCHART Comment: RESULT: Carolina JoelRodrigo Zapata, CT ( ASCP) HXThPrep Scrn [facility] See Comment [facility] RCHART Comment: RESULT: 08/09/2010 13:58 Interpreted by: Cinthia Crowley M.D. Report electronically signed by Cinthia townsend M.D. Transcribed by: [email or web address] ??08/09/2010 10:30: 49 HX Spec [facility] See Comment POWERCHART Comment: A. ??ThinPrep Pap Test Screen (Cervical/ Endocervical HPV Reflex): Received cloudy specimen in ThinPrep via l. Test Performed by: [facility] Dpt of Lab Med and Pathology [address] [place] [address] Billing Control Clerk: Federico anne III, M.D. Specimen (Source) Anatomical [...] Code Phon e Number POWERCHART Grouping and -[place] FLIP, see #[id number] (08/03/2010 9:55 AM CDT) [...]
--- OUTSIDE RECORDS SUMMARY | 2022-07-25 09:19 | XMS_ITS | Encounter Summary ---
:1985 Author Organization [facility] Address [address] [place] [address] Care Team Providers Name Role Phone Unavailable Primary Care Provider Unavailable Encounter Details Date Type Department Care Team Description 05/05/2011 Hospital Encounter HX NO MAPPING Luciano Francois M.D. [address] [place], [place] [phone] (Wo rk) Social History [...] How often do you attend cheondoism or restoration Never 07/04/2019 services? 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 [address] [place] [phone] (Wo rk) Scheduled Procedures Name Priority Associated Diagnoses Date/Time LIFT THIGH Excessive And Redundant Skin And Subcutaneous Tissue documented as of this encounter Visit Diagnoses Not on filedocumented in this encounter Additional Health Concerns Assessment Noted Time PHQ-9 Depression Total Score: 13 02/27/2011 2:40 PM CD T documented as of this encounter
--- OUTSIDE RECORDS SUMMARY | 2022-07-25 09:19 | XMS_ITS | Encounter Summary ---
:[address] [facility] Address [address] [place] [address] Care Team Providers Name Role Phone Unavailable Primary Care Provider Unavailable Encounter Details Date Type Department Care Team Description 08/23/2010 Hospital Encounter HX [facility] FBHB Janie Moreno M.D. [address] [facility], [place] [phone] Social History Tobacco Use Types Packs/Day [...] How often do you attend moravian or mandaen Never 07/04/2019 services? 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 - 08/23/2010 12:00 AM CDT [id number] IMPRESSION / REPORT / PLAN 1. This [...] of migraine headaches. She went to the [facility] and she was treated in the [...] CC: Aidan Diaz M.D. Obstetrics & Gynecology [address] [place] [id number] Electronically Signed By:JANIE MEEHAN MD On 09/19/2010 09:04 AM Modified by:JANIE MEEHAN MD On 09/19/2010 09:03 AM Source: [facility] MHSDOLBEYNONRADSYS Document Id: [id number] ET SORTER documented in this encounter Miscellaneous Notes Miscellaneous - Janie Meehan M.D. - 08/23/2010 1:42 PM CDT Reminder Msg From: JANIE MEEHAN MD To: TIFFANY GALICIA Sent: 08/23/2010 13:42:38 CDT ! Show up: 08/23/2010 13:38:00 CDT Subject: Reminder Msg Actions: Notify patient of results Due Date/Time: 08/23/2010 13:38:00 CDT Source: [facility] POWERCHART Document Id: [id number] Electronically signed by Maria R [facility] [employer] [id number] at 04/09/2017 12:31 AM CDT Miscellaneous - Janie Meehan M.D. - 08/23/2010 12:02 PM CDT Ambulatory Patient Summary [address] [address] Visit Information Name: NANCY CAMPBELL Current Date: 08/23/2010 12:02:17 Primary Care Provider: AIDAN DIAZ MD [phone] Your Medications Here is a list of [...] Time Location Reason Provider 09/15/2010 10:00 FBCV COFFIN MAKER ob Aidan Diaz MD Your Goals/Additional instructions: Source: [facility] POWERCHART Document Id: [id number] Electronically signed by Maria R [facility] Production [employer] [id number] at 04/09/2017 12:31 AM CDT Bunny - Janie Meehan M.D. - 08/23/2010 12:02 PM CDT Ambulatory Depart Summary [address] [address] Visit Information Name: NANCY CAMPBELL Current Date: 08/23/2010 12:01:58 Primary Care Provider: AIDAN DIAZ MD [id number] NANCY CAMPBELL has been given the following [...] the patient and/or family, guardian/caregiver. Source: [facility] [employer] Document Id: [id number] Electronically signed by Maria R [facility] Production [employer] [id number] at 04/09/2017 12:31 AM CDT Bunny - [...] MEEHAN MD - 08/23/2010 11:53 CDT Source: [facility] [employer] SoftwareCHART Document Id: [id number] CDT!8 Miscellaneous - Conversion, Historical Provider Ser - 08/23/2010 11:22 AM CDT Adult General Service Technician Intake/History Adult General Service Technician Intake/History Entered On: 08/23/2010 11:26 CDT Performed [...] LPN; Reviewed Date: 08/03/2010 9:10 CDT Source: [facility] POWERCHART Document Id: [id number] CDT!24 documented in this encounter Plan of Treatment Upcoming Encounters Date Type Specialty Care Team Description 08/17/2022 Procedure visit Neurology Marina Winter M.D., M.P.H. [address] [place] [phone] (Wo rk) Scheduled Procedures Name Priority Associated Diagnoses Date/Time LIFT THIGH Excessive And Redundant Skin And Subcutaneous Tissue documented as of this encounter Visit Diagnoses Not on filedocumented in this encounter
--- OUTSIDE RECORDS SUMMARY | 2022-07-25 09:19 | XMS_ITS | Encounter Summary ---
:1985 Author Organization [facility] Address [address] [place] [address] Care Team Providers Name Role Phone Unavailable Primary Care Provider Unavailable Encounter Details Date Type Department Care Team Description 11/12/2010 Hospital Encounter HX NO MAPPING Steffi Kendrick M.D. [address] [place] [phone] (Wo rk) Social History Tobacco [...] How often do you attend mormonism or lutheran Never 07/04/2019 services? 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 [address], [place] [phone] (Wo rk) Scheduled Procedures Name Priority Associated Diagnoses Date/Time LIFT THIGH Excessive And Redundant Skin And Subcutaneous Tissue documented as of this encounter Visit Diagnoses Not on filedocumented in this encounter
--- OUTSIDE RECORDS SUMMARY | 2022-07-25 09:19 | XMS_ITS | Encounter Summary ---
:1985 Author Organization [facility] Address [address] [place] [address] Care Team Providers Name Role Phone Unavailable Primary Care Provider Unavailable Encounter Details Date Type Department Care Team Description 08/15/2010 Hospital Encounter HX NO MAPPING Luciano Francois M.D. [address] [place], [place] [phone] (Wo rk) Social History [...] How often do you attend adventist or restorationist Never 07/04/2019 services? 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 [address] [place] [phone] (Wo rk) Scheduled Procedures Name Priority Associated Diagnoses Date/Time LIFT THIGH Excessive And Redundant Skin And Subcutaneous Tissue documented as of this encounter Visit Diagnoses Not on filedocumented in this encounter
--- OUTSIDE RECORDS SUMMARY | 2022-07-25 09:19 | XMS_ITS | Encounter Summary ---
:1985 Author Organization [facility] Address [address] [place] [address] Care Team Providers Name Role Phone Unavailable Primary Care Provider Unavailable Encounter Details Date Type Department Care Team Description 08/16/2010 Hospital Encounter HX NO MAPPING Jerald Adams M.D. [address] [place], [place] [address] (Wo rk) Social History [...] How often do you attend taoism or caodaism Never 07/04/2019 services? 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 [address], [place] [phone] (Wo rk) Scheduled Procedures Name Priority Associated Diagnoses Date/Time LIFT THIGH Excessive And Redundant Skin And Subcutaneous Tissue documented as of this encounter Visit Diagnoses Not on filedocumented in this encounter
--- OUTSIDE RECORDS SUMMARY | 2022-07-25 09:19 | XMS_ITS | Encounter Summary ---
:1985 Author Organization [facility] Address [address] [place] [address] Care Team Providers Name Role Phone Unavailable [...] How often do you attend congregation or yarsanism Never 07/04/2019 services? 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 [address] [place], [place] [phone] (Wo rk) Scheduled Procedures Name Priority Associated Diagnoses Date/Time LIFT THIGH Excessive And Redundant Skin And Subcutaneous Tissue documented as of this encounter Visit Diagnoses Not on filedocumented in this encounter Additional Health Concerns Assessment Noted Time PHQ-9 Depression Total Score: 13 02/27/2011 2:40 PM CD T documented as of this encounter
--- OUTSIDE RECORDS SUMMARY | 2022-07-25 09:19 | XMS_ITS | Encounter Summary ---
:1985 Author Organization [facility] Address [address] [place] [address] Care Team Providers Name Role Phone Unavailable Primary Care Provider Unavailable Encounter Details Date Type Department Care Team Description 09/15/2010 Hospital Encounter HX [facility] Steve Dupont M.D. [address] [place] [address] (Wo rk) Social History Tobacco Use Types [...] How often do you attend quaker or advent Never 07/04/2019 services? 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 - 09/15/2010 12:00 AM CST [id number] IMPRESSION/REPORT/PLAN I spent over 35 minutes with Nancy today. itself is going well, but she is having some relationship issues with some trust and honesty. Talked to her about that at length and asked that she see her previous therapist up in [place] if possible, otherwise I have somebody here in [place] if that is easier for her. We [...] DIAZ MD On 09/20/2010 07:47 AM Source: [facility] MHSDOLBEYNONRADSYS Document Id: [id number] RVISOR CONDITIONING YARD documented in this encounter Miscellaneous Notes Miscellaneous - Aidan Diaz M.D. - 09/15/2010 11:14 AM CST [place] [address] Visit Information Name: NANCY CAMPBELL Current Date: 09/15/2010 11:14:26 Primary Care Provider: AIDAN DIAZ MD [phone] Your Medications Here is a list of [...] Time Location Reason Provider 10/11/2010 10:30 FBCV REFRIGERATED CARGO CLERK diabetic education per Dr. Diaz/seeing him after Diana Morris CNM 10/11/2010 11:00 FBCV REFRIGERATED CARGO CLERK ob ultrasound. I also wish her to see kiera welch that day to get set upwith a glucometer Aidan Diaz MD Your Goals/Additional instructions: Source: [facility] POWERCHART Document Id: [id number] Electronically signed by Maria R [facility] Licensed Audiologist [id number] at 04/09/2017 4:59 AM CDT Miscellaneous - Aidan Diaz M.D. - 09/15/2010 11:14 AM CST [place] [address] Visit Information Name: NANCY CAMPBELL Current Date: 09/15/2010 11:14:25 Primary Care Provider: AIDAN DIAZ MD [id number] NANCY CAMPBELL has been given the following [...] to the patient and/or family, guardian/caregiver. Source: [facility] PearescopeCHART Document Id: [id number] Electronically signed by Conversion, [facility] Licensed Audiologist [id number] at 04/09/2017 4:59 AM CDT Miscellaneous - Conversion, Historical Provider Ser - 09/15/2010 10:23 AM SUPERVISOR CONDITIONING YARD Adult Bindery Supervisor Intake/History Adult Bindery Supervisor Intake/History Entered On: 09/15/2010 10:23 SUPERVISOR CONDITIONING YARD Performed On: 09/15/2010 10:23 SUPERVISOR CONDITIONING YARD by YVETTE HEART LPN Intake Chief Complaint: OB check @ 15 2/7 weeks LMP Date: 05-01-10 Systolic Blood Pressure: 122mmHg Diastolic Blood Pressure: 70mmHg NIBP Mean: 87mmHg BP Location: Right upper extremity Heart Rhythm: Regular Actual Weight: 116.500kg(Converted to: 256lb 13oz) Dosing Weight Clinic: 116.50kg YVETTE HEART LPN - 09/15/2010 10:23 SUPERVISOR CONDITIONING YARD Subjective Pain Symptoms: No YVETTE HEART LPN - 09/15/2010 10:23 SUPERVISOR CONDITIONING YARD Dependent Habits Tobacco Use/Currently Using: No YVETTE HEART LPN - 09/15/2010 10:23 SUPERVISOR CONDITIONING YARD Caffeine Use Grid Caffeine Use: Current Type: Soft drinks Frequency: Daily YVETTE HEART LPN - 09/15/2010 10:23 SUPERVISOR CONDITIONING YARD Allergies Allergies (Active) NKA Estimated Onset Date: Unspecified ; Created By: CECIL ALEGRIA LPN; Reaction Status: Active ; Category: Drug ; Substance: NKA ; Type: Allergy ; Updated By: CECIL ALEGRIA LPN; Reviewed Date: 09/15/2010 10:22 SUPERVISOR CONDITIONING YARD Source: [facility] PearescopeCHART Document Id: [id number] SUPERVISOR CONDITIONING YARD!20 documented in this encounter Plan of Treatment Upcoming Encounters Date Type Specialty Care Team Description 08/17/2022 Procedure visit Neurology Marina Winter M.D., M.P.H. [address] [phone] (Wo rk) Scheduled Procedures Name Priority Associated Diagnoses Date/Time LIFT THIGH Excessive And Redundant Skin And Subcutaneous Tissue documented as of this encounter Visit Diagnoses Not on filedocumented in this encounter
--- OUTSIDE RECORDS SUMMARY | 2022-07-25 09:19 | XMS_ITS | Encounter Summary ---
:1985 Author Organization [facility] Address [address] [place] [address] Care Team Providers Name Role Phone Unavailable Primary Care Provider Unavailable Encounter Details Date Type Department Care Team Description 02/07/2011 Hospital Encounter HX [facility] Steve Dupont M.D. [address] [place] [address] (Wo rk) Social History Tobacco [...] How often do you attend lutheran or tenriism Never 07/04/2019 services? 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 - 02/07/2011 12:00 AM CDT [id number] IMPRESSION/REPORT/PLAN We got a urine on her [...] AIDAN DIAZ MD On: 02/08/2011 03:18 Source: [facility] MHSDOLBEYNONRADSYS Document Id: [id number] documented in this encounter Procedure Notes Cecil Saleh L.PCiera - 02/07/2011 2:24 PM CDT Urine Dipstick Urine Dipstick Entered On: 02/07/2011 14:24 CDT Performed On: 02/07/2011 14:24 CDT by CECIL SALEH LPN Urine Dipstick UA Color POC: [place] UA Appear POC: Clear UA Protein POC: Trace UA Glucose POC: Negative CECIL SALEH LPN - 02/07/2011 14:24 CDT Source: [employer] Document Id: [id number] CDT!6 documented in this encounter Nursing Notes Cecil Saleh L.PCiera - 02/07/2011 3:30 PM CDT pt is scheduled for repeat on 02-28-2011. Arrival time of 9:30 for 11:30 a.m. case. FPW completed. Pt given instructions. Electronically Signed By: CECIL SALEH LPN On: 02/07/2011 03:32 Source: [employer] Document Id: [id number] documented in this encounter Miscellaneous Notes Miscellaneous - Aidan Diaz M.D. - 02/07/2011 2:41 PM CDT Ambulatory Patient Summary [address] [address] Visit Information Name: NANCY CAMPBELL Current Date: [...] No Appointments found Your Goals/Additional instructions: Source: [facility] POWERCHART Document Id: [id number] Electronically signed by Conversion, [facility] Skip Miner [id number] at 04/08/2017 11:24 AM CDT Miscellaneous - Aidan Diaz M.D. - 02/07/2011 2:41 PM CDT [place] [address] Visit Information Name: NANCY CAMPBELL Current Date: [...] to the patient and/or family, guardian/caregiver. Source: [facility] POWERCHART Document Id: [id number] Electronically signed by Conversion, [facility] Skip Miner [id number] at 04/08/2017 11:24 AM CDT Miscellaneous - Cecil Saleh LRodrigoPRodrigoN. - 02/07/2011 2:11 PM CDT Adult Outreach Team Member Intake/History Adult Outreach Team Member Intake/History Entered On: 02/07/2011 14:15 CDT Performed [...] Onset Date: Unspecified ; Created By: CECIL SALHE LPN; Reaction Status: Active ; Category: Drug ; Substance: NKA ; Type: Allergy ; Updated By: CECIL SALEH LPN; Reviewed Date: 09/15/2010 10:22 CITRIX LEAD [facility] Document Id: [id number] CDT!19 documented in this encounter Plan of Treatment Upcoming Encounters Date Type Specialty Care Team Description 08/17/2022 Procedure visit Neurology Marina Winter M.D., M.P.H. [address] [place] [phone] (Wo rk) Scheduled Procedures Name Priority Associated Diagnoses Date/Time LIFT THIGH Excessive And Redundant Skin And Subcutaneous Tissue documented as of this encounter Visit Diagnoses Not on filedocumented in this encounter
--- OUTSIDE RECORDS SUMMARY | 2022-07-25 09:19 | XMS_ITS | Encounter Summary ---
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 - 02/28/2011 12:00 AM CDT [id number] CHIEF COMPLAINT/ REASON FOR VISIT Migraine headaches. [...] MARCIO LAY MD On: 03/02/2011 01:56 Source: [facility] MHSDOLBEYNONRADSYS Document Id: [id number] documented in this encounter Miscellaneous Notes Miscellaneous - Marcio Lay M.D. - 02/28/2011 4:19 PM CDT Ambulatory Patient Summary [address] [address] Visit Information Name: NANCY CAMPBELL Current Date: [...] Time Location Reason Provider 03/07/2011 13:30 FBCV ROVING WEIGHT GAUGER depression Aidan Diaz MD 04/04/2011 13:30 FBCV ROVING WEIGHT GAUGER exam Aidan Diaz MD Your Goals/Additional instructions: Source: [facility] POWERCHART Document Id: [id number] Electronically signed by Maria R [facility] Associate Accountant [id number] at 04/08/2017 11:24 AM CDT Miscellaneous - Marcio Lay M.D. - 02/28/2011 4:19 PM CDT Ambulatory Depart Summary [address] [address] Visit Information Name: NANCY CAMPBELL Current Date: [...] to the patient and/or family, guardian/caregiver. Source: [facility] POWERCHART Document Id: [id number] Electronically signed by [facility], [facility] Associate Accountant [id number] at 04/08/2017 11:24 AM CDT Miscellaneous - Conversion, Historical Provider Ser - 02/28/2011 4:00 PM CDT Adult Optometrist Intake/History Adult Optometrist Intake/History Entered On: 02/28/2011 16:03 CDT Performed [...] LPN; Reviewed Date: 02/28/2011 15:58 CDT [facility] Document Id: [id number] CDT!27 documented in this encounter Plan of Treatment Upcoming Encounters Date Type Specialty Care Team Description 08/17/2022 Procedure visit Neurology Marina Winter M.D., M.P.H. [address] [phone] (Wo rk) Scheduled Procedures Name Priority Associated Diagnoses Date/Time LIFT THIGH Excessive And Redundant Skin And Subcutaneous Tissue documented as of this encounter Visit Diagnoses Not on filedocumented in this encounter Additional Health Concerns Assessment Noted Time PHQ-9 Depression Total Score: 13 02/27/2011 2:40 PM CD T documented as of this encounter
--- OUTSIDE RECORDS SUMMARY | 2022-07-25 09:19 | XMS_ITS | Encounter Summary ---
:1985 Author Organization [facility] Address [address] [place] [address] Care Team Providers Name Role Phone Unavailable Primary Care Provider Unavailable Encounter Details Date Type Department Care Team Description 08/09/2005 Hospital Encounter HX [facility]OC CVC-Pernell Ortega Jr., M.D. [address] [place] [phone] (Wo rk) Social History Tobacco Use [...] How often do you attend scientologist or worship Never 07/04/2019 services? 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 [address] [place] [phone] (Wo rk) Scheduled Procedures Name Priority Associated Diagnoses Date/Time LIFT THIGH Excessive And Redundant Skin And Subcutaneous Tissue documented as of this encounter Visit Diagnoses Not on filedocumented in this encounter
--- OUTSIDE RECORDS SUMMARY | 2022-07-25 09:19 | XMS_ITS | Encounter Summary ---
:1985 Author Organization [facility] Address [address] [place] [address] Care Team Providers Name Role Phone Unavailable Primary Care Provider Unavailable Encounter Details Date Type Department Care Team Description 08/15/2010 Hospital Encounter HX NO MAPPING Luciano Francois M.D. [address] [place], [place] [phone] (Wo rk) Social History [...] How often do you attend spiritism or uatsdin Never 07/04/2019 services? 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 [address] [place] [phone] (Wo rk) Scheduled Procedures Name Priority Associated Diagnoses Date/Time LIFT THIGH Excessive And Redundant Skin And Subcutaneous Tissue documented as of this encounter Visit Diagnoses Not on filedocumented in this encounter
--- OUTSIDE RECORDS SUMMARY | 2022-07-25 09:19 | XMS_ITS | Encounter Summary ---
:1985 Author Organization [facility] Address [address] [place] [address] Care Team Providers Name Role Phone Unavailable Primary Care Provider Unavailable Encounter Details Date Type Department Care Team Description 01/10/2011 Hospital Encounter HX [facility] Steve Dupont M.D. [address] [place] [address] (Wo rk) Social History Tobacco Use Types [...] How often do you attend jewish or rastafari Never 07/04/2019 services? 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 - 01/10/2011 12:00 AM CST [id number] IMPRESSION/REPORT/PLAN Going to take her off work, [...] AIDAN DIAZ MD On: 01/16/2011 09:10 Source: [facility] MHSDOLBEYNONRADSYS Document Id: [id number] documented in this encounter Miscellaneous Notes Miscellaneous - Aidan Diaz M.D. - 01/10/2011 9:32 AM CST Ambulatory [place] [address] Visit Information Name: NANCY CAMPBELL Current Date: 01/10/2011 09:32:07 Primary Care Provider: AIDAN DIAZ MD [id number] Your Medications Here is a list of [...] No Appointments found Your Goals/Additional instructions: Source: [facility] POWERCHART Document Id: [id number] Miscellaneous - Aidan Diaz M.D. - 01/10/2011 9:32 AM CST [place] [address] Visit Information Name: NANCY CAMPBELL Current Date: 01/10/2011 09:32:05 Primary Care Provider: AIDAN DIAZ MD [id number] NANCY CAMPBELL has been given the following [...] to the patient and/or family, guardian/caregiver. Source: [facility] AdsvarkCHART Document Id: [id number] Electronically signed by Conversion, [facility] [employer] [id number] at 04/08/2017 5:46 PM CDT Miscellaneous - Cecil Saleh L.PRodrigoN. - 01/10/2011 9:00 AM CST Adult Medical Staff Assistant Intake/History Adult Medical Staff Assistant Intake/History Entered On: 01/10/2011 9:02 RF TEST ENGINEER Performed On: 01/10/2011 9:00 RF TEST ENGINEER by CECIL SALEH LPN Intake Chief Complaint: OB US LMP Date: 05/01/2010 Systolic Blood Pressure: 116mmHg Diastolic Blood Pressure: 70mmHg NIBP Mean: 85mmHg BP Location: Right upper extremity Actual Weight: 111.200kg(Converted to: 245lb 2oz) Dosing Weight Clinic: 111.20kg CECIL SALEH LPN - 01/10/2011 9:00 RF TEST ENGINEER Subjective Pain Symptoms: No CECIL SALEH LPN - 01/10/2011 9:00 RF TEST ENGINEER Dependent Habits Tobacco Use/Currently Using: No CECIL SALEH LPN - 01/10/2011 9:00 RF TEST ENGINEER Caffeine Use Grid Caffeine Use: Current Type: Soft drinks Frequency: Daily CECIL SALEH LPN - 01/10/2011 9:00 RF TEST ENGINEER Allergies Allergies (Active) NKA Estimated Onset Date: Unspecified ; Created By: CECIL SALEH LPN; Reaction Status: Active ; Category: Drug ; Substance: NKA ; Type: Allergy ; Updated By: CECIL SALEH LPN; Reviewed Date: 09/15/2010 10:22 RF TEST ENGINEER Source: [facility] AdsvarkCHART Document Id: [id number] RF TEST ENGINEER!19 TEST ENGINEER documented in this encounter Plan of Treatment Upcoming Encounters Date Type Specialty Care Team Description 08/17/2022 Procedure visit Neurology Marina Winter M.D., M.P.H. [address] [phone] (Wo rk) Scheduled Procedures Name Priority Associated Diagnoses Date/Time LIFT THIGH Excessive And Redundant Skin And Subcutaneous Tissue documented as of this encounter Visit Diagnoses Not on filedocumented in this encounter
--- OUTSIDE RECORDS SUMMARY | 2022-07-25 09:19 | XMS_ITS | Encounter Summary ---
:1985 Author Organization [facility] Address [address] [place] [address] Care Team Providers Name Role Phone Unavailable Primary Care Provider Unavailable Encounter Details Date Type Department Care Team Description 04/13/2011 Hospital Encounter HX [facility] Steve Dupont M.D. [address] [place] [address] (Wo rk) Social History Tobacco Use Types [...] How often do you attend christian or sikhism Never 07/04/2019 services? 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 - 04/13/2011 12:00 AM CDT [id number] IMPRESSION/REPORT/PLAN 1. Normal 6 week checkup. 2. [...] fine. GENITALIA External genitalia, Bartholin's, urethral and [place]'s glands within normal limits. Vagina normal rugae. Cervix appears multiparous. Uterus is midposition, normal size, shape and consistency. Adnexa without masses or tenderness. BDB/mgd Signed Aidan Diaz M.D. Obstetrics & Gynecology Electronically Signed By: AIDAN DIAZ MD On: 04/18/2011 08:47 AM Source: [facility] MHSDOLBEYNONRADSYS Document Id: [id number] documented in this encounter Miscellaneous Notes Miscellaneous - Cecil Saleh L.P.N. - 04/13/2011 10:55 AM CDT Adult Aging Box Hand Intake/History Adult Aging Box Hand Intake/History Entered On: 04/13/2011 10:58 CDT Performed On: 04/13/2011 10:55 CDT by CECIL SALEH LPN Intake Chief Complaint: pp 02/18/2011 Peripheral Pulse Rate: 68/min Systolic Blood Pressure: 104mmHg Diastolic Blood Pressure: 66mmHg NIBP Mean: 79mmHg BP Location: Right upper extremity Actual Weight: 103.900kg(Converted to: 229lb 1oz) Dosing Weight Clinic: 103.90kg CECIL SALEH LPN - 04/13/2011 10:55 CDT Subjective Pain [...] LPN; Reviewed Date: 02/28/2011 15:58 CDT Source: [facility] [employer]fluence Document Id: [id number] CDT!22 documented in this encounter Plan of Treatment Upcoming Encounters Date Type Specialty Care Team Description 08/17/2022 Procedure visit Neurology Marina Winter M.D., M.P.H. [address] [phone] (Wo rk) Scheduled Procedures Name Priority Associated Diagnoses Date/Time LIFT THIGH Excessive And Redundant Skin And Subcutaneous Tissue documented as of this encounter Visit Diagnoses Not on filedocumented in this encounter Additional Health Concerns Assessment Noted Time PHQ-9 Depression Total Score: 13 02/27/2011 2:40 PM CD T documented as of this encounter
--- OUTSIDE RECORDS SUMMARY | 2022-07-25 09:19 | XMS_ITS | Encounter Summary ---
:1985 Author Organization [facility] Address [address] [place] [address] Care Team Providers Name Role Phone Unavailable Primary Care Provider Unavailable Encounter Details Date Type Department Care Team Description 05/23/2011 Hospital Encounter HX [facility] Steve Dupont M.D. [address] [place] [address] (Wo rk) Social History Tobacco Use Types [...] How often do you attend sikh or adventism Never 07/04/2019 services? 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 - 05/23/2011 12:00 AM CDT [id number] CHIEF COMPLAINT/REASON FOR VISIT Nancy comes in [...] DIAZ MD On: 05/24/2011 09:44 AM Source: [facility] MHSDOLBEYNONRADSYS Document Id: [id number] documented in this encounter Procedure Notes Cecil Saleh L.P.Art - 05/23/2011 11:42 AM CDT Depo-Provera Administration Depo-Provera Administration Entered On: 05/23/2011 11:45 CDT Performed On: 05/23/2011 11:42 CDT by CECIL SALEH LPN Depo-Provera Administration Dosing Weight: 103.500kg Pap within last 12 months: Yes Last Depo-Provera Given: 02/27/2011 CDT Return appointment: 08/14/2011 CDT Needs test: No Depo-Provera Administration Comments: lot [id number] exp CECIL SALEH LPN - 05/23/2011 11:42 CDT Source: [facility] POWERCHART Document Id: [id number] CDT!8 Cecil Saleh L.P.NRodrigo - 05/23/2011 11:27 AM CDT Hemoglobin POC Hemoglobin POC Entered On: 05/23/2011 11:36 CDT Performed On: 05/23/2011 11:27 CDT by CECIL SALEH LPN Hemoglobin POC Hemoglobin POC Result: 13.7mg/dL Site: Finger, Right CECIL SALEH LPN - 05/23/2011 11:27 CDT Source: [employer] Document Id: [id number] CDT!4 documented in this encounter Miscellaneous Notes Miscellaneous - Cecil Saleh L.P.N. - 05/23/2011 11:46 AM CDT Adult Terrazzo Polisher Intake/History Adult Terrazzo Polisher Intake/History Entered On: 05/23/2011 11:46 CDT Performed [...] LPN; Reviewed Date: 02/28/2011 15:58 CDT Source: [employer] Document Id: [id number] CDT!17 Miscellaneous - Aidan Diaz M.D. - 05/23/2011 11:25 AM CDT Ambulatory Patient Summary [place] [facility] [address] [place] [address] Visit Information Name: NANCY CAMPBELL Current Date: [...] Source: [facility] POWERCHART Document Id: [id number] Electronically signed by Maria R [facility] Tire And Lube Technician [id number] at 04/08/2017 3:59 PM CDT Miscellaneous - Aidan Diaz M.D. - 05/23/2011 11:25 AM CDT [place] [address] Visit Information Name: NANCY CAMPBELL Current Date: [...] to the patient and/or family, guardian/caregiver. Source: [facility] POWERCHART Document Id: [id number] Electronically signed by Maria R, [facility] Tire And Lube Technician [id number] at 04/08/2017 3:59 PM CDT documented in this encounter Plan of Treatment Upcoming Encounters Date Type Specialty Care Team Description 08/17/2022 Procedure visit Neurology Marina Winter M.D., M.P.H. [address] [phone] (Wo rk) Scheduled Procedures Name Priority Associated Diagnoses Date/Time LIFT THIGH Excessive And Redundant Skin And Subcutaneous Tissue documented as of this encounter Visit Diagnoses Not on filedocumented in this encounter Additional Health Concerns Assessment Noted Time PHQ-9 Depression Total Score: 13 02/27/2011 2:40 PM CD T documented as of this encounter
--- OUTSIDE RECORDS SUMMARY | 2022-07-25 09:19 | XMS_ITS | Encounter Summary ---
:1985 Author Organization [facility] Address [address] [place] [address] Care Team Providers Name Role Phone Unavailable Primary Care Provider Unavailable Encounter Details Date Type Department Care Team Description 10/11/2010 Hospital Encounter HX [facility] Steve Dupont M.D. [address] [place] [address] (Wo rk) Social History Tobacco Use Types [...] How often do you attend tenriism or jain Never 07/04/2019 services? 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 - 10/11/2010 12:00 AM CST [id number] IMPRESSION/REPORT/PLAN Ultrasound is done. Please see ultrasound [...] DIAZ MD On 10/17/2010 11:41 AM Source: [facility] MHSDOLBEYNONRADSYS Document Id: [id number] OPERATIONS ADMINISTRATOR documented in this encounter Miscellaneous Notes Miscellaneous - Aidan Diaz M.D. - 10/11/2010 11:02 AM CST [place] [address] Visit Information Name: NANCY CAMPBELL Current Date: 10/11/2010 11:02:16 Primary Care Provider: AIDAN DIAZ MD [phone] Your Medications Here is a list of [...] No Appointments found Your Goals/Additional instructions: Source: [facility] POWERCHART Document Id: [id number] Electronically signed by Maria R [facility] Family Life Counselor [id number] at 04/09/2017 5:54 AM CDT Miscellaneous - Aidan Diaz M.D. - 10/11/2010 11:02 AM CST [place] [address] Visit Information Name: NANCY CAMPBELL Current Date: 10/11/2010 11:02:15 Primary Care Provider: AIDAN DIAZ MD [id number] NANCY CAMPBELL has been given the following [...] to the patient and/or family, guardian/caregiver. Source: [facility] POWERCHART Document Id: [id number] Electronically signed by Maria R [facility] Family Life Counselor [id number] at 04/09/2017 5:54 AM CDT documented in this encounter Plan of Treatment Upcoming Encounters Date Type Specialty Care Team Description 08/17/2022 Procedure visit Neurology Marina Winter M.D., M.P.H. [address] [phone] (Wo rk) Scheduled Procedures Name Priority Associated Diagnoses Date/Time LIFT THIGH Excessive And Redundant Skin And Subcutaneous Tissue documented as of this encounter Visit Diagnoses Not on filedocumented in this encounter
--- OUTSIDE RECORDS SUMMARY | 2022-07-25 09:19 | XMS_ITS | Encounter Summary ---
:1985 Author Organization [facility] Address [address] [place] [address] Care Team Providers Name Role Phone Unavailable [...] How often do you attend gnosticist or gnosticism Never 07/04/2019 services? 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 [address] [place] [phone] (Wo rk) Scheduled Procedures Name Priority Associated Diagnoses Date/Time LIFT THIGH Excessive And Redundant Skin And Subcutaneous Tissue documented as of this encounter Visit Diagnoses Not on filedocumented in this encounter
--- OUTSIDE RECORDS SUMMARY | 2022-07-25 09:19 | XMS_ITS | Encounter Summary ---
:1985 Author Organization [facility] Address [address] [place] [address] Care Team Providers Name Role Phone Unavailable [...] How often do you attend buddhist or pentecostal Never 07/04/2019 services? 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 [address] [phone] (Wo rk) Scheduled Procedures Name Priority Associated Diagnoses Date/Time LIFT THIGH Excessive And Redundant Skin And Subcutaneous Tissue documented as of this encounter Visit Diagnoses Not on filedocumented in this encounter
--- OUTSIDE RECORDS SUMMARY | 2022-07-25 09:19 | XMS_ITS | Encounter Summary ---
:1985 Author Organization [facility] Address [address] [place] [address] Care Team Providers Name Role Phone Unavailable Primary Care Provider Unavailable Encounter Details Date Type Department Care Team Description 02/14/2011 Hospital Encounter HX [facility] Steve Dupont M.D. [address] [place] [address] (Wo rk) Social History Tobacco Use Types [...] often do you attend latter day or anabaptist Never 07/04/2019 services? 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 - 02/14/2011 12:00 AM CDT [id number] IMPRESSION/REPORT/PLAN Labor precautions given. I will see [...] AIDAN DIAZ MD On: 02/15/2011 02:47 Source: [facility] MHSDOLBEYNONRADSYS Document Id: [id number] documented in this encounter Miscellaneous Notes Miscellaneous - Cecil Saleh L.P.N. - 02/14/2011 2:17 PM CDT Adult Rn Gastroenterology Intake/History Adult Rn Gastroenterology Intake/History Entered On: 02/14/2011 14:18 CDT Performed [...] CECIL SALEH LPN; Reviewed Date: 09/15/2010 10:22 PANEL BUILDER Source: [facility] POWERCHART Document Id: [id number] CDT!19 documented in this encounter Plan of Treatment Upcoming Encounters Date Type Specialty Care Team Description 08/17/2022 Procedure visit Neurology Marina Winter M.D., M.P.H. [address] [phone] (Wo rk) Scheduled Procedures Name Priority Associated Diagnoses Date/Time LIFT THIGH Excessive And Redundant Skin And Subcutaneous Tissue documented as of this encounter Visit Diagnoses Not on filedocumented in this encounter
--- OUTSIDE RECORDS SUMMARY | 2022-07-25 09:19 | XMS_ITS | Encounter Summary ---
:1985 Author Organization [facility] Address [address] [place] [address] Care Team Providers Name Role Phone Unavailable [...] How often do you attend pentecostalism or holiness Never 07/04/2019 services? 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 If [...] WELCH CNM On 10/13/2010 01:26 PM Source: [facility] MHSDOLBEYNONRADSYS Document Id: [id number] LAWYER documented in this encounter Miscellaneous Notes Miscellaneous - Diana Welch CNM - 10/11/2010 11:08 AM CST Ambulatory [place] [address] Visit Information Name: NANCY CAMPBELL Current Date: 10/11/2010 11:08:42 Primary Care Provider: AIDAN DIAZ MD [phone] Your Medications Here is a list of [...] No Appointments found Your Goals/Additional instructions: Source: [facility] POWERCHART Document Id: [id number] Miscellaneous - Linette Welchricalfred Tripp CNM - 10/11/2010 11:08 AM CST Ambulatory [place] [address] Visit Information Name: NANCY CAMPBELL Current Date: 10/11/2010 11:08:42 Primary Care Provider: AIDAN DIAZ MD [phone] NANCY CAMPBELL has been given the following [...] to the patient and/or family, guardian/caregiver. Source: [facility] POWERCHART Document Id: [id number] Bunny - Nicki Vaz, R.N. - 10/11/2010 10:32 AM CST Adult Presidential Support Specialist Intake/History Adult Presidential Support Specialist Intake/History Entered On: 10/11/2010 10:33 TAX LAWYER Performed On: 10/11/2010 10:32 TAX LAWYER by NICKI PAIGE Intake Chief Complaint: OB visit 19 weeks Systolic Blood Pressure: 124mmHg Diastolic Blood Pressure: 56mmHg NIBP Mean: 79mmHg BP Location: Left upper extremity Actual Weight: 114.800kg(Converted to: 253lb 1oz) Dosing Weight Clinic: 114.80kg NICKI PAIGE - 10/11/2010 10:32 TAX LAWYER Subjective Pain Symptoms: No GRECIA NICKI Fabricio - 10/11/2010 10:32 TAX LAWYER Dependent Habits Tobacco Use/Currently Using: No GRECIA NICKI Regalado - 10/11/2010 10:32 TAX LAWYER Caffeine Use Grid Caffeine Use: Current Type: Soft drinks Frequency: Daily GRECIA NICKI Regalado - 10/11/2010 10:32 TAX LAWYER Allergies Allergies (Active) NKA Estimated Onset Date: Unspecified ; Created By: CECIL ALEGRIA LPN; Reaction Status: Active ; Category: Drug ; Substance: NKA ; Type: Allergy ; Updated By: CECIL ALEGRIA LPN; Reviewed Date: 09/15/2010 10:22 TAX LAWYER Source: [employer] Document Id: [id number] TAX LAWYER!18 LAWYER documented in this encounter Plan of Treatment Upcoming Encounters Date Type Specialty Care Team Description 08/17/2022 Procedure visit Neurology Marina Winter M.D., M.P.H. [address] [phone] (Wo rk) Scheduled Procedures Name Priority Associated Diagnoses Date/Time LIFT THIGH Excessive And Redundant Skin And Subcutaneous Tissue documented as of this encounter Visit Diagnoses Not on filedocumented in this encounter
--- OUTSIDE RECORDS SUMMARY | 2022-07-25 09:19 | XMS_ITS | Encounter Summary ---
:1985 Author Organization [facility] Address [address] [place] [address] Care Team Providers Name Role Phone Unavailable Primary Care Provider Unavailable Encounter Details Date Type Department Care Team Description 12/06/2010 Hospital Encounter HX [facility] Steve Dupont M.D. [address] [place] [address] (Wo rk) Social History Tobacco Use Types [...] How often do you attend sabianist or roman catholic Never 07/04/2019 services? 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 - 12/06/2010 12:00 AM CST [id number] IMPRESSION/REPORT/PLAN I have written her a letter [...] DIAZ MD On 12/07/2010 02:24 PM Source: [facility] MHSDOLBEYNONRADSYS Document Id: [id number] OR MECHANICAL ENGINEER documented in this encounter Miscellaneous Notes Telephone Encounter - Conversion, Historical Provider Ser - 12/09/2010 11:54 AM CST Phone Message Document Contains Addenda Addendum by KIT HATHAWAY MD on 09 December 2010 11:57:51 SENIOR MECHANICAL ENGINEER From: KIT HATHAWAY MD To: JESSICA BULLARD; Sent: 12/09/2010 11:57:51 SENIOR MECHANICAL ENGINEER Subject: RE: Phone Message The patients urine LCR on 12/06/10 is negative. From: JESSICA BULLARD To: KIT HATHAWAY; Sent: 12/09/2010 11:54:18 SENIOR MECHANICAL ENGINEER Subject: Phone Message Caller is: ( x) [...] Other ( ) Call back telephone number ([phone] ) Call back cell phone number ( ) Source: [facility] [employer] Document Id: [id number] Bunny - Kit Hathaway M.D. - 12/09/2010 11:14 AM CST Return to Work Status Return to Work Status Entered On: 12/09/2010 11:17 SENIOR MECHANICAL ENGINEER Performed On: 12/09/2010 11:14 SENIOR MECHANICAL ENGINEER by KIT HATHAWAY MD Return to Work Status Date/Time of Injury: 12/09/2010 11:14 SENIOR MECHANICAL ENGINEER Work Injury: No Work Status: Other: Work restrictions recommended for rest of . Return to Work Start Date: 12/09/2010 SENIOR MECHANICAL ENGINEER Restricted Work Start Date: 12/09/2010 SENIOR MECHANICAL ENGINEER Restricted Work Stop Date: 03/04/2011 CDT Follow Up Appointment Needed: Yes Follow Up Appointment Date: 12/20/2010 SENIOR MECHANICAL ENGINEER Work Status Comment: The patient is with due date of 03/04/2011. She is having complicationsin her . She should not work more than 5 hours per day or 30 hours per week for the remainder of her . Follow Up Physician Name: KIT Lund MD - 12/09/2010 11:14 SENIOR MECHANICAL ENGINEER Source: [facility] [employer] Document Id: [id number] SENIOR MECHANICAL ENGINEER!12 OR MECHANICAL ENGINEER Bunny - Aidan Diaz M.D. - 12/06/2010 3:07 PM CST Ambulatory Patient Summary [address] [address] Visit Information Name: NANCY CAMPBELL Current Date: 12/06/2010 15:07:03 Primary Care Provider: AIDAN DIAZ MD [phone] Your Medications Here is a list of [...] No Appointments found Your Goals/Additional instructions: Source: [facility] POWERCHART Document Id: [id number] Electronically signed by Conversion, Maria [facility] Library Circulation Technician [id number] at 04/08/2017 11:45 AM CDT Bunny - Aidan Diaz M.D. - 12/06/2010 3:07 PM CST [place] [address] Visit Information Name: NANCY CAMPBELL Current Date: 12/06/2010 15:07:02 Primary Care Provider: AIDAN DIAZ MD [phone] NANCY CAMPBELL has been given the following [...] to the patient and/or family, guardian/caregiver. Source: [facility] POWERCHART Document Id: [id number] Electronically signed by Conversion, Maria [facility] Library Circulation Technician [id number] at 04/08/2017 11:45 AM CDT Miscellaneous - Cecil Saleh, L.P.N. - 12/06/2010 2:54 PM CST Adult Blue Leather Sorter Intake/History Adult Blue Leather Sorter Intake/History Entered On: 12/06/2010 14:55 SENIOR MECHANICAL ENGINEER Performed On: 12/06/2010 14:54 SENIOR MECHANICAL ENGINEER by CECIL SALEH LPN Intake Chief Complaint: OB visit LMP Date: 05/01/2010 Systolic Blood Pressure: 94mmHg Diastolic Blood Pressure: 52mmHg NIBP Mean: 66mmHg BP Location: Left upper extremity Actual Weight: 112.200kg(Converted to: 247lb 6oz) Dosing Weight Clinic: 112.20kg CECIL SALEH LPN - 12/06/2010 14:54 SENIOR MECHANICAL ENGINEER Subjective Pain Symptoms: No CECIL SALEH LPN - 12/06/2010 14:54 SENIOR MECHANICAL ENGINEER Dependent Habits Tobacco Use/Currently Using: No CECIL SALEH LPN - 12/06/2010 14:54 SENIOR MECHANICAL ENGINEER Caffeine Use Grid Caffeine Use: Current Type: Soft drinks Frequency: Daily CECIL SALEH LPN - 12/06/2010 14:54 SENIOR MECHANICAL ENGINEER Allergies Allergies (Active) NKA Estimated Onset Date: Unspecified ; Created By: CECIL SALEH LPN; Reaction Status: Active ; Category: Drug ; Substance: NKA ; Type: Allergy ; Updated By: CECIL SALEH LPN; Reviewed Date: 09/15/2010 10:22 SENIOR MECHANICAL ENGINEER Source: [employer] Document Id: [id number] SENIOR MECHANICAL ENGINEER!19 OR MECHANICAL ENGINEER documented in this encounter Plan of Treatment Upcoming Encounters Date Type Specialty Care Team Description 08/17/2022 Procedure visit Neurology Marina Winter M.D., M.P.H. [address] [phone] (Wo rk) Scheduled Procedures Name Priority Associated Diagnoses Date/Time LIFT THIGH Excessive And Redundant Skin And Subcutaneous Tissue documented as of this encounter Visit Diagnoses Not on filedocumented in this encounter
--- OUTSIDE RECORDS SUMMARY | 2022-07-25 09:19 | XMS_ITS | Encounter Summary ---
:1985 Author Organization [facility] Address [address] [place] [address] Care Team Providers Name Role Phone Unavailable Primary Care Provider Unavailable Encounter Details Date Type Department Care Team Description 12/27/2010 Hospital Encounter HX [facility] Steve Dupont M.D. [address] [place] [address] (Wo rk) Social History Tobacco Use Types [...] How often do you attend sikh or anglican Never 07/04/2019 services? 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 - 12/27/2010 12:00 AM CST [id number] IMPRESSION/REPORT/PLAN Please see sheet. Everything seems to be growing well at this point. We will see her back in 2 weeks. At that time we will do an ultrasound to check the placenta. CHIEF COMPLAINT/REASON FOR VISIT Nancy comes in today for OB check. BDB/mgd Signed Aidan Diaz M.D. Obstetrics & Gynecology Electronically Signed By: AIDAN DIAZ MD On: 12/29/2010 09:08 Source: [facility] MHSDOLBEYNONRADSYS Document Id: [id number] PROCESSING INSTRUCTOR documented in this encounter Miscellaneous Notes Miscellaneous - Aidan Diaz M.D. - 12/27/2010 3:29 PM CST Ambulatory [place] [address] Visit Information Name: NANCY CAMPBELL Current Date: 12/27/2010 15:29:06 Primary Care Provider: AIDAN DIAZ MD [phone] Your Medications Here is a list of [...] Time Location Reason Provider 01/10/2011 14:00 FBCV PHARMACEUTICAL PLANT OPERATOR ob plus ultrasound Aidan Diaz MD Your Goals/Additional instructions: Source: [facility] POWERCHART Document Id: [id number] Miscellaneous - Aidan Diaz M.D. - 12/27/2010 3:29 PM CST [place] [address] Visit Information Name: NANCY CAMPBELL Current Date: 12/27/2010 15:29:05 Primary Care Provider: AIDAN DIAZ MD [phone] NNACY CAMPBELL has been given the following list [...] and/or family, guardian/caregiver. Source: [facility] IForemCHART Document Id: [id number] Miscellaneous - Cecil Saleh L.P.N. - 12/27/2010 2:05 PM CST Adult Can Cutter Intake/History Adult Can Cutter Intake/History Entered On: 12/27/2010 14:06 IN PROCESSING INSTRUCTOR Performed On: 12/27/2010 14:05 IN PROCESSING INSTRUCTOR by CECIL SALEH LPN Intake Chief Complaint: OB visit LMP Date: 05/01/2010 Systolic Blood Pressure: 114mmHg Diastolic Blood Pressure: 68mmHg NIBP Mean: 83mmHg BP Location: Left upper extremity Actual Weight: 111.400kg(Converted to: 245lb 10oz) Dosing Weight Clinic: 111.40kg CECIL SALEH LPN - 12/27/2010 14:05 IN PROCESSING INSTRUCTOR Subjective Pain Symptoms: No CECIL SALEH LPN - 12/27/2010 14:05 IN PROCESSING INSTRUCTOR Dependent Habits Tobacco Use/Currently Using: No CECIL SALEH LPN - 12/27/2010 14:05 IN PROCESSING INSTRUCTOR Caffeine Use Grid Caffeine Use: Current Type: Soft drinks Frequency: Daily CECIL SALEH LPN - 12/27/2010 14:05 IN PROCESSING INSTRUCTOR Allergies Allergies (Active) NKA Estimated Onset Date: Unspecified ; Created By: CECIL SALEH LPN; Reaction Status: Active ; Category: Drug ; Substance: NKA ; Type: Allergy ; Updated By: CECIL SALEH LPN; Reviewed Date: 09/15/2010 10:22 IN PROCESSING INSTRUCTOR Source: [facility] [employer] [place] Document Id: [id number] IN PROCESSING INSTRUCTOR!19 PROCESSING INSTRUCTOR documented in this encounter Plan of Treatment Upcoming Encounters Date Type Specialty Care Team Description 08/17/2022 Procedure visit Neurology Marina Winter M.D., M.P.H. [address] [phone] (Wo rk) Scheduled Procedures Name Priority Associated Diagnoses Date/Time LIFT THIGH Excessive And Redundant Skin And Subcutaneous Tissue documented as of this encounter Visit Diagnoses Not on filedocumented in this encounter
--- OUTSIDE RECORDS SUMMARY | 2022-07-25 09:19 | XMS_ITS | Encounter Summary ---
:1985 Author Organization [facility] Address [address] [place] [address] Care Team Providers Name Role Phone Unavailable Primary Care Provider Unavailable Encounter Details Date Type Department Care Team Description 01/24/2011 Hospital Encounter [facility]X [facility] Steve Dupont M.D. [address] [place] [address] (Wo rk) Social History Tobacco [...] How often do you attend buddhism or jew Never 07/04/2019 services? 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 - 01/24/2011 12:00 AM CDT [id number] IMPRESSION/REPORT/PLAN She has not been following her [...] AIDAN DIAZ MD On: 01/25/2011 10:54 Source: [facility] MHSDOLBEYNONRADSYS Document Id: [id number] documented in this encounter Miscellaneous Notes Miscellaneous - Aidan Diaz M.D. - 01/24/2011 2:07 PM CDT [place] [address] Visit Information Name: NANCY CAMPBELL Current Date: [...] No Appointments found Your Goals/Additional instructions: Source: [facility] POWERCHART Document Id: [id number] Electronically signed by Maria R [facility] Air Brush Decorator [id number] at 04/08/2017 5:46 PM CDT Miscellaneous - Aidan Diaz M.D. - 01/24/2011 2:07 PM CDT [place] [address] Visit Information Name: NANCY CAMPBELL Current Date: [...] to the patient and/or family, guardian/caregiver. Source: [facility] ZeviaCHART Document Id: [id number] Electronically signed by Maria R [facility] Air Brush Decorator [id number] at 04/08/2017 5:46 PM CDT Miscellaneous - Cecil Saleh L.P.N. - 01/24/2011 1:50 PM CDT Adult Lining Closer Intake/History Adult Lining Closer Intake/History Entered On: 01/24/2011 13:51 CDT Performed [...] CECIL SALEH LPN; Reviewed Date: 09/15/2010 10:22 CANE STRIPPER Source: [facility] ZeviaCHART Document Id: [id number] CDT!19 documented in this encounter Plan of Treatment Upcoming Encounters Date Type Specialty Care Team Description 08/17/2022 Procedure visit Neurology Marina Winter M.D., M.P.H. [address] [phone] (Wo rk) Scheduled Procedures Name Priority Associated Diagnoses Date/Time LIFT THIGH Excessive And Redundant Skin And Subcutaneous Tissue documented as of this encounter Visit Diagnoses Not on filedocumented in this encounter
--- OUTSIDE RECORDS SUMMARY | 2022-07-25 09:19 | XMS_ITS | Encounter Summary ---
:1985 Author Organization [facility] Address [address] [place] [address] Care Team Providers Name Role Phone Unavailable Primary Care Provider Unavailable Encounter Details Date Type Department Care Team Description 07/26/2011 Hospital Encounter HX [facility] Den Mckinley M.D. [address] [place], [place] [address] (Wo rk) Social History [...] How often do you attend sikh or taoist Never 07/04/2019 services? 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 [address] [place] [phone] (Wo rk) Scheduled Procedures Name Priority Associated Diagnoses Date/Time LIFT THIGH Excessive And Redundant Skin And Subcutaneous Tissue documented as of this encounter Visit Diagnoses Not on filedocumented in this encounter Additional Health Concerns Assessment Noted Time PHQ-9 Depression Total Score: 13 02/27/2011 2:40 PM CD T documented as of this encounter
--- OUTSIDE RECORDS SUMMARY | 2022-07-25 09:19 | XMS_ITS | Encounter Summary ---
:1985 Author Organization [facility] Address [address] [place] [address] Care Team Providers Name Role Phone Unavailable Primary Care Provider Unavailable Encounter Details Date Type Department Care Team Description 09/16/2010 Hospital Encounter HX NO MAPPING Jerald Adams M.D. [address] [place], [place] [address] (Wo rk) Social History [...] How often do you attend zoroastrian or faith Never 07/04/2019 services? 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 [address], [place] [phone] (Wo rk) Scheduled Procedures Name Priority Associated Diagnoses Date/Time LIFT THIGH Excessive And Redundant Skin And Subcutaneous Tissue documented as of this encounter Visit Diagnoses Not on filedocumented in this encounter
--- OUTSIDE RECORDS SUMMARY | 2022-07-25 09:19 | XMS_ITS | Encounter Summary ---
:1985 Author Organization [facility] Address [address] [place] [address] Care Team Providers Name Role Phone Unavailable Primary Care Provider Unavailable Encounter Details Date Type Department Care Team Description 08/18/2010 Hospital Encounter HX [facility] Steve Dupont M.D. [address] [place] [address] (Wo rk) Social History Tobacco Use Types [...] How often do you attend shinto or confucianist Never 07/04/2019 services? 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 - 08/18/2010 12:00 AM CDT [id number] IMPRESSION/REPORT/PLAN Migraines Plan: I am going to [...] headaches. She was hospitalized overnight down in [place]. She otherwise is doing well, as far as, the is concerned except for some slight nausea, which may or may not be related to the migraine itself. PHYSICAL EXAM AREA EXAM TEXT ABDOMEN heart tones 160's. Fundal height 12 cm. NEURO Cranial nerves II-XII intact. BDB/mgd Signed Aidan Diaz M.D. Obstetrics & Gynecology Electronically Signed By:AIDAN DIAZ MD On 08/24/2010 02:34 PM Source: [facility] MHSDOLBEYNONRADSYS Document Id: [id number] documented in this encounter Miscellaneous Notes Miscellaneous - Aidan Diaz M.D. - 08/18/2010 8:52 AM CDT Ambulatory [place] [address] Visit Information Name: NANCY CAMPBELL Current Date: 08/18/2010 08:52:08 Primary Care Provider: AIDAN DIAZ MD [id number] Your Medications Here is a list of [...] Time Location Reason Provider 09/15/2010 10:00 FBCV [place] ob Aidan Diaz MD Your Goals/Additional instructions: Source: [facility] POWERCHART Document Id: [id number] Electronically signed by Maria R [facility] Motors And Controls Tester [id number] at 04/09/2017 12:31 AM CDT Miscellaneous - Aidan Diaz M.D. - 08/18/2010 8:52 AM CDT Ambulatory [place] [address] Visit Information Name: NANCY CAMPBELL Current Date: 08/18/2010 08:52:07 Primary Care Provider: AIDAN DIAZ MD [id number] NANCY CAMPBELL has been given the following [...] patient and/or family, guardian/caregiver. Source: [facility] SnapverseCHART Document Id: [id number] Electronically signed by Maria R [facility] Motors And Controls Tester [id number] at 04/09/2017 12:31 AM CDT Miscellaneous - Cecil Saleh L.P.N. - 08/18/2010 8:26 AM CDT Adult Gizzard Puller Intake/History Adult Gizzard Puller Intake/History Entered On: 08/18/2010 8:28 CDT Performed On: 08/18/2010 8:26 CDT by CECIL SALEH LPN Intake Chief Complaint: OB visit at 11 2/7 weeks c/o migraines seen at [place] [facility] Date: 05/01/2010 Systolic Blood Pressure: 114mmHg Diastolic [...] LPN; Reviewed Date: 08/03/2010 9:10 CDT Source: [facility] SnapverseCHART Document Id: [id number] CDT!20 documented in this encounter Plan of Treatment Upcoming Encounters Date Type Specialty Care Team Description 08/17/2022 Procedure visit Neurology Marina Winter M.D., M.P.H. [address] [phone] (Wo rk) Scheduled Procedures Name Priority Associated Diagnoses Date/Time LIFT THIGH Excessive And Redundant Skin And Subcutaneous Tissue documented as of this encounter Visit Diagnoses Not on filedocumented in this encounter
--- OUTSIDE RECORDS SUMMARY | 2022-07-25 09:19 | XMS_ITS | Encounter Summary ---
:1985 Author Organization [facility] Address [address] [place] [address] Care Team Providers Name Role Phone Unavailable Primary Care Provider Unavailable Encounter Details Date Type Department Care Team Description 08/15/2011 Hospital Encounter HX [facility] FAMILYPRA Grandalfred, Lizandro Olguin, P.A.-C., P.A. [address] [place], [place] [address] (Wo rk) Social History [...] How often do you attend restorationism or congregation Never 07/04/2019 services? 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 - 08/15/2011 12:00 AM CDT [id number] CHIEF COMPLAINT / REASON FOR VISIT Establish [...] she has 2 young children and a ivb-ghsip-wxh who does not sleep well during the [...] and a stepdaughter. She is currently a xwfn-hc-bwtt mom. She does not smoke or use [...] Alert. SKIN: No rashes, lesions or bruising. [place], warm and dry. EYES: PERRLA. EOM intact. [...] JENAE MINOR On: 08/24/2011 09:25 AM Source: [facility] MHSDOLBEYNONRADSYS Document Id: [id number] documented in this encounter Procedure Notes Conversion, Historical Provider Ser - 08/15/2011 12:06 PM CDT Depo-Provera Administration Depo-Provera Administration Entered On: 08/15/2011 12:06 CDT Performed On: 08/15/2011 12:06 CDT by TOÑO FRAGA Depo-Provera Administration Annual Exam in the Past 12 Months: Yes Return appointment: 11/15/2010 DISPLAY AND BANNER DESIGNER Needs test: No TOÑO FRAGA - 08/15/2011 12:06 CDT Vitals/Ht/Wt Systolic Blood Pressure: 112mmHg Diastolic Blood Pressure: 68mmHg NIBP Mean: 83mmHg TOÑO FRAGA - 08/15/2011 12:06 CDT Source: [facility] POWERCHART Document Id: [id number] CDT!9 documented in this encounter Miscellaneous Notes [...] results Due Date/Time: 08/18/2011 11:23:00 CDT Source: [facility] POWERSuniva Document Id: [id number] Electronically signed by Conversion, [facility] Diabetes Educator [id number] at 04/08/2017 5:12 PM CDT Miscellaneous - [...] results Due Date/Time: 08/16/2011 10:20:00 CDT Source: [facility] mygola Document Id: [id number] Electronically signed by Conversion, [facility] Diabetes Educator [id number] at 04/08/2017 5:12 PM CDT Miscellaneous - [...] results Due Date/Time: 08/16/2011 09:09:00 CDT Source: [facility] CustoraCHART Document Id: [id number] Electronically signed by Conversion, [facility] Diabetes Educator [id number] at 04/08/2017 5:12 PM CDT Miscellaneous - [...] results Due Date/Time: 08/15/2011 16:33:00 CDT Source: [facility] CustoraCHART Document Id: [id number] Electronically signed by [facility] Diabetes Educator [id number] at 04/08/2017 5:12 PM CDT Miscellaneous - Jenae Minor P.A.-C., P.A. - 08/15/2011 2:50 PM CDT Results Notification Document Contains Addenda Addendum by TOÑO FRAGA on 15 August 2011 15:39:17 CDT pt notified From: JENAE MINOR To: TOÑO FRAGA Sent: 08/15/2011 14:50:01 CDT ! Show up: 08/15/2011 14:49:00 CDT Subject: Results Notification Actions: Notify patient of results Due Date/Time: 08/15/2011 14:49:00 CDT Source: [facility] POWERCHART Document Id: [id number] Electronically signed by [facility] Diabetes Educator [id number] at 04/08/2017 5:12 PM CDT Miscellaneous - Jenae Minor P.A.-C., P.A. - 08/15/2011 12:13 PM CDT [facility] [address] [place] [address] Visit Information Name: NANCY ROBINS Current Date: [...] [facility] POWERCHART Document Id: [id number] Electronically signed by Maria R, [facility] Diabetes Educator [id number] at 04/08/2017 5:12 PM CDT Miscellaneous - Jenae Minor P.A.-C., P.A. - 08/15/2011 12:13 PM CDT Ambulatory Depart Summary [address] [address] Visit Information Name: TAYEFRITZNANCY ELIZABETH Current Date: [...] to the patient and/or family, guardian/caregiver. Source: [facility] CustoraCHART Document Id: [id number] Electronically signed by Conversion, [facility] Diabetes Educator [id number] at 04/08/2017 5:12 PM CDT Miscellaneous - Conversion, Historical Provider Ser - 08/15/2011 11:04 AM CDT Adult Fiberglass Pipe Covering Supervisor Intake/History Adult Fiberglass Pipe Covering Supervisor Intake/History Entered On: 08/15/2011 11:06 CDT Performed [...] 11:04 CDT Subjective Pain Symptoms: No TOÑO FRGAA - 08/15/2011 11:04 CDT Dependent Habits Tobacco Use/Currently Using: No TOÑO FRAGA - 08/15/2011 11:04 CDT Tobacco Use Grid Other Tobacco Frequency: non TOÑO FRAAG - 08/15/2011 11:04 CDT Caffeine Use Grid Caffeine Use: Current Type: Soft drinks Frequency: Daily TOÑO FRAGA - 08/15/2011 11:04 CDT Allergy Allergies (Active) NKA Estimated Onset Date: Unspecified ; Created By: CECIL ALEGRIA LPN; Reaction Status: Active ; Category: Drug ; Substance: NKA ; Type: Allergy ; Updated By: CECIL ALEGRIA LPN; Reviewed Date: 08/15/2011 11:03 CDT Source: [facility] CustoraCHART Document Id: [id number] CDT!29 Miscellaneous - Conversion, Historical Provider Ser [...] TOÑO FRAGA - 08/16/2011 9:20 CDT Source: [facility] mygola Document Id: [id number] CDT!13 documented in this encounter Plan of Treatment Upcoming Encounters Date Type Specialty Care Team Description 08/17/2022 Procedure visit Neurology Marina Winter M.D., M.P.H. [address] [phone] (Wo rk) Scheduled Procedures Name Priority Associated Diagnoses Date/Time LIFT THIGH Excessive And Redundant Skin And Subcutaneous Tissue documented as of this encounter Procedures Procedure Name Priority Date/Time Associated Comments Diagnosis ZZPATHOLOGY NON-WINDING INSPECTOR Routine 08/15/2011 12:00 Resu lts for this CYTOLOGY AM CDT procedure are i n the results section. documented in this encounter Results ZZPATHOLOGY NON-WINDING INSPECTOR CYTOLOGY (08/15/2011 12:00 AM CDT) Specimen (Source) Anatomical Location Collection Method / Collectio n Time Received Time / Laterality Volume 08/15/2011 Narrative [facility] - 08/23/20 11 10:50 AM CDT PATIENT IMAGES Choose the Image button to view related documents. Historical Provider LAB PATHOLOGY/CYTOLOGY ORDER BERRY Performing Organization Address City/State/ZIP Code Phon e Number [facility] documented in this encounter Visit Diagnoses Not on filedocumented in this encounter Additional Health Concerns Assessment Noted Time PHQ-9 Depression Total Score: 08/15/2011 9:20 AM CD T documented as of this encounter
--- OUTSIDE RECORDS SUMMARY | 2022-07-25 09:19 | XMS_ITS | Encounter Summary ---
:1985 Author Organization [facility] Address [address] [place] [address] Care Team Providers Name Role Phone Unavailable [...] How often do you attend pentecostalism or zoroastrian Never 07/04/2019 services? 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 - 02/27/2011 12:00 AM CDT [id number] CHIEF COMPLAINT/ REASON FOR VISIT 1. Postop [...] follow up with her primary provider at [facility] for evaluation and management of her migraine headaches. JTS/mgd Signed Kit Hathaway M.D. Obstetrics & Gynecology Electronically Signed By: KIT HATHAWAY MD On: 03/02/2011 08:59 Source: [facility] MHSDOLBEYNONRADSYS Document Id: [id number] documented in this encounter Procedure Notes Maria [...] JESSICA BULLARD - 02/27/2011 14:53 CDT Source: [facility] POWERCHART Document Id: [id number] CDT!10 documented in this encounter Nursing Notes Kit Hathaway M.D. - 02/27/2011 2:29 PM CDT Recurring Orders Recurring Orders Entered On: 02/27/2011 14:30 CDT Performed On: 02/27/2011 14:29 CDT by KIT HATHAWAY MD Recurring Orders Depo-Provera Dose: 150 mg Depo-Provera Route: IM Depo-Provera Frequency: Every 12 weeks Depo-Provera Duration: 1 year Depo-Provera Comment: , s/p delivery on 02/19/2011 KIT HATHAWAY MD - 02/27/2011 14:29 CDT Source: [facility] MedyMatch Document Id: [id number] CDT!7 documented in this encounter Miscellaneous Notes Miscellaneous - Laura Duncan L.P.N. - 02/27/2011 3:15 PM CDT Reminder Msg PHQ-9 Document Contains Addenda Addendum by CECIL SALEH LPN on 24 August 2011 11:54:59 CDT [...] Patient ( ) ( ) Call for Green Material Value Added Assessor ( ) Follow up on Results ( ) Other: PROVIDER: ( ) Call Physician ( ) Call Pharmacist ( ) Call Lab ( ) Other: Special Instructions: Comments: Source: [facility] POWERCHART Document Id: [id number] Miscellaneous - Kit Hathaway M.D. - 02/27/2011 2:42 PM CDT Ambulatory [place] [address] Visit Information Name: NANCY CAMPBELL Current Date: [...] No Appointments found Your Goals/Additional instructions: Source: [facility] POWERCHART Document Id: [id number] Miscellchina - Kit Hathaway M.D. - 02/27/2011 2:42 PM CDT [place] [address] Visit Information Name: NANCY CAMPBELL Current Date: [...] to the patient and/or family, guardian/caregiver. Source: [facility] POWERCHART Document Id: [id number] Miscellaneous - Kit Hathaway M.D. - 02/27/2011 [...] HATHAWAY MD - 02/27/2011 14:40 CDT Source: [employer] Document Id: [id number] CDT!13 Miscellaneous - Cecil Saleh L.PRodrigoNRodrigo - 02/27/2011 2:14 PM CDT Adult Thread Milling Machine Set Up Operator Intake/History Adult Thread Milling Machine Set Up Operator Intake/History Entered On: 02/27/2011 14:15 CDT Performed [...] LPN; Reviewed Date: 02/27/2011 14:11 CDT Source: [employer] Document Id: [id number] CDT!22 documented in this encounter Plan of Treatment Upcoming Encounters Date Type Specialty Care Team Description 08/17/2022 Procedure visit Neurology Marina Winter M.D., M.P.H. [address] [phone] (Wo rk) Scheduled Procedures Name Priority Associated Diagnoses Date/Time LIFT THIGH Excessive And Redundant Skin And Subcutaneous Tissue documented as of this encounter Visit Diagnoses Not on filedocumented in this encounter Additional Health Concerns Assessment Noted Time PHQ-9 Depression Total Score: 13 02/27/2011 2:40 PM CD T documented as of this encounter
--- OUTSIDE RECORDS SUMMARY | 2022-07-25 09:19 | XMS_ITS | Encounter Summary ---
:1985 Author Organization [facility] Address [address] [place] [address] Care Team Providers Name Role Phone Unavailable Primary Care Provider Unavailable Encounter Details Date Type Department Care Team Description 05/05/2011 Hospital Encounter HX NO MAPPING Luciano Francois M.D. [address] [place], [place] [phone] (Wo rk) Social History [...] How often do you attend anabaptist or gnosticist Never 07/04/2019 services? 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 [address] [place] [phone] (Wo rk) Scheduled Procedures Name Priority Associated Diagnoses Date/Time LIFT THIGH Excessive And Redundant Skin And Subcutaneous Tissue documented as of this encounter Visit Diagnoses Not on filedocumented in this encounter Additional Health Concerns Assessment Noted Time PHQ-9 Depression Total Score: 13 02/27/2011 2:40 PM CD T documented as of this encounter
--- OUTSIDE RECORDS SUMMARY | 2022-07-25 09:19 | XMS_ITS | Encounter Summary ---
:1985 Author Organization [facility] Address [address] [place] [address] Care Team Providers Name Role Phone Unavailable Primary Care Provider Unavailable Encounter Details Date Type Department Care Team Description 09/16/2010 Hospital Encounter HX NO MAPPING Jerald Adams M.D. [address] [place], [place] [address] (Wo rk) Social History [...] How often do you attend hoahaoism or yarsanism Never 07/04/2019 services? 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 [address], [place] [phone] (Wo rk) Scheduled Procedures Name Priority Associated Diagnoses Date/Time LIFT THIGH Excessive And Redundant Skin And Subcutaneous Tissue documented as of this encounter Visit Diagnoses Not on filedocumented in this encounter
--- OUTSIDE RECORDS SUMMARY | 2022-07-25 09:20 | XMS_ITS | Encounter Summary ---
:1985 Author Organization [facility] Address [address] [place] [address] Care Team Providers Name Role Phone Unavailable Primary Care Provider Unavailable Encounter Details Date Type Department Care Team Description 04/28/2005 Hospital Encounter HX [facility] CVC-Pernell Ortega Jr., M.D. [address] [place] [phone] (Wo rk) Social History Tobacco Use [...] How often do you attend episcopalian or buddhist Never 07/04/2019 services? 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 [address] [place] [phone] (Wo rk) Scheduled Procedures Name Priority Associated Diagnoses Date/Time LIFT THIGH Excessive And Redundant Skin And Subcutaneous Tissue documented as of this encounter Visit Diagnoses Not on filedocumented in this encounter
--- OUTSIDE RECORDS SUMMARY | 2022-07-25 09:20 | XMS_ITS | Encounter Summary ---
:1985 Author Organization [facility] Address [address] [place] [address] Care Team Providers Name Role Phone Unavailable Primary Care Provider Unavailable Encounter Details Date Type Department Care Team Description 07/27/2003 Hospital Encounter [facility]X [facility] JACEY Jose Ortega Jr., M.D. [address] [place], [place] [phone] (Wo rk) Social History [...] How often do you attend gnosticist or episcopalian Never 07/04/2019 services? 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 [address] [phone] (Wo rk) Scheduled Procedures Name Priority Associated Diagnoses Date/Time LIFT THIGH Excessive And Redundant Skin And Subcutaneous Tissue documented as of this encounter Visit Diagnoses Not on filedocumented in this encounter
--- OUTSIDE RECORDS SUMMARY | 2022-07-25 09:20 | XMS_ITS | Encounter Summary ---
:1985 Author Organization [facility] Address [address] [place] [address] Care Team Providers Name Role Phone Unavailable Primary Care Provider Unavailable Encounter Details Date Type Department Care Team Description 10/19/2004 Hospital Encounter HX [facility] Jose Ortega Jr., M.D. [address] [place], [place] [phone] (Wo rk) Social History [...] How often do you attend moravian or presybeterian Never 07/04/2019 services? 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 [address] [phone] (Wo rk) Scheduled Procedures Name Priority Associated Diagnoses Date/Time LIFT THIGH Excessive And Redundant Skin And Subcutaneous Tissue documented as of this encounter Visit Diagnoses Not on filedocumented in this encounter
--- OUTSIDE RECORDS SUMMARY | 2022-07-25 09:20 | XMS_ITS | Encounter Summary ---
:1985 Author Organization [facility] Address [address] [place] [address] Care Team Providers Name Role Phone Unavailable Primary Care Provider Unavailable Encounter Details Date Type Department Care Team Description 09/10/2003 Hospital Encounter HX [facility] Jose Ortega Jr., M.D. [address] [place], [place] [phone] (Wo rk) Social History [...] How often do you attend mormonism or sikh Never 07/04/2019 services? 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 [address] [phone] (Wo rk) Scheduled Procedures Name Priority Associated Diagnoses Date/Time LIFT THIGH Excessive And Redundant Skin And Subcutaneous Tissue documented as of this encounter Visit Diagnoses Not on filedocumented in this encounter
[2022-07-25 09:29] LABS: D Dimer Quantitative* < 0.27 ug/ml (0.00-0.50)
[2022-07-25 09:31] LABS: NT Pro B Type NatriureticPept* 49 PG/mL (0-125)
[2022-07-25 09:35] LABS: Albumin* 3.9 g/dL (3.3-5.0); Chloride* 106 mmol/L (96-114)
[2022-07-25 09:36] LABS: Potassium* 4.1 mmol/L (3.6-5.1); Sodium* 135 mmol/L (135-149)
[2022-07-25 09:38] LABS: Bilirubin Total* 0.5 mg/dL (0.1-1.5); Creatinine* 0.4 mg/dL (0.5-1.5); Estimated Glomerular Filt Rate 131 ml/min
[2022-07-25 09:39] LABS: Alanine Aminotransferase* 15 U/L (4-35); Alkaline Phosphatase* 32 U/L (40-150); Aspartate Amino Transferase* 22 U/L (12-35); Blood Urea Nitrogen* 13 mg/dL (5-24); Calcium* 8.6 mg/dL (8.4-10.6); Carbon Dioxide* 24 mmol/L (20-32); Glucose* 96 mg/dL (60-115); Total Protein* 6.3 g/dL (6.0-8.3)
[2022-07-25 09:47] LABS: C Reactive Protein* < 0.5 mg/dL (0.5-1.0)
--- NOTE | 2022-07-25 10:00 | CRLHL7_ITS ---
For Patients: As a result of the Century Cures Act, medical imaging exams and procedure reports are released immediately into your electronic medical record. You may view this report before your referring provider. If you have questions, please contact your health care provider. INDICATION: LEFT SIDED PLEURITIC CHEST PAIN TECHNIQUE: Chest 2 views COMPARISON: None FINDINGS: Cardiovascular and mediastinum: Heart size and vasculature are normal in caliber and appearance. Lungs and pleural spaces: Lungs are clear. No sign of infiltrate or mass. No sign of pleural effusion. No pneumothorax. Bones and soft tissues: No significant findings. IMPRESSION: No acute findings. Dictated by Dilshad Haynes MD @ 07/25/2022 10:43:01 AM (Electronically Signed)
== END 2022-07-25 11:49 | disposition home or self-care (01) ==
PROVIDERS: Emergency Provider Family Medicine; PCP Family Medicine
DX: R07.81 Pleurodynia (principal); G89.29 Other chronic pain; M25.512 Pain in left shoulder
CPT/HCPCS: 36415; 71046; 80053; 83605; 83880; 84484; 85025; 85379; 86140; 93005; 94761; 99284; J1885

== ENCOUNTER 2022-09-05 06:00 | Outpatient (CLI) | payer MEDICAID, SELFPAY ==
--- OUTSIDE RECORDS SUMMARY | 2022-09-05 06:06 | XMS_ITS | Clinical Summary ---
:1985 Author Organization [facility] Address [address] [place] [address] Care Team Providers Name Role Phone Unassigned, [...] for each transition of care or referral. [facility] Allergies No known active allergies Medications Medication [...] = 0.6 oz pure alcoho l) rare Sex Assigned at Date Recorded Not on [...] age to complete this topic Care Teams Spiral Runner Relationship Specialty Start Date End Date Unassigned, Provider PCP - General 08/08/[address] [place] [address]
--- OUTSIDE RECORDS SUMMARY | 2022-09-05 06:06 | XMS_ITS | Encounter Summary ---
:1985 Author Organization [email or web address] Address [address] [place] [address] Care Team Providers Name Role Phone Unassigned, Provider Primary Care Provider Unavailable Reason for Referral Procedure/Equipment (Routine) - Incomplete Specialty Diagnoses / Procedures Referred By Contact Refer red To Contact Diagnoses Epigastric pain Evelia Temple PA-C Procedures [place] UGI W Esophagus [address] [facility] [address] [place], [place] [address] Referral ID Status Reason Start Date Expiration Date Visits V isits Requested Authorized [id number] Incomplete 04/09/2019 07/08/2020 1 1 Reason for Visit Reason Comments Sleeve Surg Followup Encounter Details Date Type Department Care Team Description 04/09/2019 Office Visit [place] Bariat[facility] Evelia Temple Hypert ension, unspecified type (Primary Dx); Surgery & Weight ANASTACIO Poole Epigastric pain; Center [address] [place] [address] Status post bariatric surger y; [address] [facility] [address] Vitamin D deficiency; [address] [place], [place] Iron deficiency; [place] [address] Class 1 obesity with body mass index (BM I) of 30.0 to 30.9 in adult, unspecified obesity type, unspecified whether serious comorbidity present [id number] [phone] Social History Tobacco Use Types Packs/Day Years [...] AM CDT Call to schedule UGI UGI: [phone] documented in this encounter Progress Notes Evelia Temple PA-C - 04/09/2019 11:00 AM CDT Bariatric Surgery Post-Operative Follow Up DATE OF VISIT: 04/10/2019 SUBJECTIVE: This 34 y.o. year-old female with chronic medical problems including depression, anxiety presents for routine postoperative followup status post Laparoscopic Vertical Sleeve. Patient returns to the [facility] bariatric clinic for follow up. She had a vertical sleeve gastrectomy (using a 38 Arabic Bougie) and hiatal hernia repair at [facility] in [facility] by Dr. Noelle Akbar on 07/23/18. Patient's pre-operative weight was 294 lbs, BMI 50.4. Patient did have a CT scan of the abdomen about 2 weeks post-op due to abdominal pain and a absess vs seroma was seen to the abdominal wall, no evidence of a gastric sleeve leak. [place] about 3 weeks after bariatric surgery. Patient [...] oz Goal Weight: 128 lb Starting BMI: 37.23923542 Percent Exess Weight Loss: 46.0393327836861 Current BMI: 30.3031318 Percent Totoal Body Weight Loss: 18.0384989356745 Date of surgery 07/23/2018. The patient is [...] file Gets together: Not on file Attends sabianism service: Not on file Active member of [...] (162.6 cm) Wt 174 lb 12.8 oz (50938 g) BMI 30.00 kg/m?? BMI: Estimated body mass index is 30 kg/m?? as calculated from the following: Height as of this encounter: 5' 4 (162.6 cm). Weight as of this encounter: 174 lb 12.8 oz (00012 g). GENERAL: Patient appears no apparent distress RESPIRATORY: Normal respiratory effort PSYCH: no overt evidence of anxiety or depression SKIN: no rashes on exposed skin NEURO: normal gait MUSCULOSKELETAL: no LE edema LABORATORY STUDIES: Recent [facility] Labs 11/20/2018 Vitamin B12 888 Potassium [...] lose further weight. Total time 25 minutes, mplo-eu-[id number] counseling time 15 minutes, spent discussing lifestyle [...] 04/24/2019 2:18 PM CDT COMPARISON: ??None. FINDINGS: Communications Professional image of the abdomen vivek ws a [...] different from the original. COMPARISON: None. FINDINGS: Communications Professional image of the abdomen [facility] [...] epigastric documented in this encounter Care Teams Music Leader Relationship Specialty Start Date End Date Unassigned, Provider PCP - General 08/08/[address] [place] [address] documented as of this encounter
--- OUTSIDE RECORDS SUMMARY | 2022-09-05 06:06 | XMS_ITS | Encounter Summary ---
:1985 Author Organization [facility] Address [address] [place] [address] Care Team Providers Name Role Phone Unavailable Primary Care Provider Unavailable Reason for Visit Reason Comments VOMITING, BLOOD Encounter Details Date Type Department Care Team Description 06/05/2000 Telephone Careline Altagracia Sands RN VOMITING, BLOOD [address] AFTER [place] [place] - [place], [place] [address] CARELINE [phone] [place] [address] Social History Tobacco Use Types Packs/Day Years Used Date Smoking Tobacco: Never Assessed Sex Assigned at Date Recorded Not on file documented as of this encounter Nursing Notes 06/05/2000 11:59 PM CDT CALL RECEIVED. Contact: [phone] Child vomited up a cup of bright red blood with clots at 3pm today. She was taken to the ER at [facility]. They gave her Zantac and Tyl. Was told to bring her back if she vomits blood again. Chi ld ishaving abd. pain. Color is flushed. Temp 99.7 at the hospital. Mother is very upset about being sent home from the ER without any answers to the hematemesis. Mother wants to bring child to [facility] now. She is asking about the coverage. Advised mother [facility] a [facility]-the coverage will be according to her policy. Toldher we could not give her the exact coverage of her policy. Mother will be bringing child to [facility]. - Altagracia Sands Started and completed on SunJun 05, 2000 8:58 PM documented in this encounter Plan of Treatment Not on filedocumented as of this encounter Visit Diagnoses Not on filedocumented in this encounter
--- OUTSIDE RECORDS SUMMARY | 2022-09-05 06:06 | XMS_ITS | Encounter Summary ---
:1985 Author Organization [facility] Address [address] [place] [address] Care Team Providers Name Role Phone Unassigned, Provider Primary Care Provider Unavailable Reason for Visit Reason Comments RESULTS, X-RAY Encounter Details Date Type Department Care Team Description 05/01/2019 Telephone [place] [facility] & Mariajose Padilla R, RESULTS, X-RAY Weight Center ANASTACIO [address] [facility] [address] [facility] [address] [place] [address] [phone] Social History Tobacco Use Types Packs/Day Years [...] Performed by: [facility] COMPARISON: ??None. FINDINGS: Vocational Case Manager image of the abdomen shows a nonobstructive [...] on filedocumented in this encounter Care Teams Bobcat Operator Relationship Specialty Start Date End Date Unassigned, Provider PCP - General 08/08/[address] [place] [address] documented as of this encounter
--- OUTSIDE RECORDS SUMMARY | 2022-09-05 06:06 | XMS_ITS | Encounter Summary ---
:1985 Author Organization [facility] Address [address] [place] [address] Care Team Providers Name Role Phone Unassigned, Provider Primary Care Provider Unavailable Encounter Details Date Type Department Care Team Description 01/08/2019 Lab Visit [facility] Status post bariatric surger y; [address] [address]. Intestinal malabsorption, un specified type; [place] [address] Personal history of endocrin e disorder [phone] Social History Tobacco Use Types Packs/Day Years [...] of Re sults for this 25-HYDROXY, TOTAL CALL CENTER OPERATOR endocrine disorder proc edure are in the results section. INTACT PTH Routine 01/08/2019 3:24 PM Status post Results f or this CALL CENTER OPERATOR bariatric surger y procedure are in Intestinal the results malabsorption, section. unspecified type PREALBUMIN Routine 01/08/2019 3:24 PM Status post Results f or this CALL CENTER OPERATOR bariatric surger y procedure are in Intestinal the results malabsorption, section. unspecified type FERRITIN Routine 01/08/2019 3:24 PM Status post Results f or this CALL CENTER OPERATOR bariatric surger y procedure are in Intestinal the results malabsorption, section. unspecified type IRON PROFILE Routine 01/08/2019 3:24 PM Status post Results f or this (IRON,TIBC,%SAT.(WENDI CALL CENTER OPERATOR bariatric s urgery procedure are in C)) Intestinal the results malabsorption, section. unspecified type CALCIUM Routine 01/08/2019 3:24 PM Status post Results f or this CALL CENTER OPERATOR bariatric surger y procedure are in Intestinal the results malabsorption, section. unspecified type documented in this encounter Results PREALBUMIN (01/08/2019 3:24 PM CALL CENTER OPERATOR) athologist Signature Prealbumin 17.5 16.0 - 38.0 PN SOFT mg/dL Specimen Anatomical Collection Method Collection Time Receive d Time (Source) Location / / Volume Laterality 01/08/2019 3:24 PM 9 6:54 CALL CENTER OPERATOR PM CALL CENTER OPERATOR Narrative PN SOFT - 01/08/2019 8:31 PM CALL CENTER [place]PER[place] [address] CLIA number [id number] Evelia Temple PA-C LAB_1 Performing Organization Address City/[facility] Phon e Number PN SOFT [address] [place] [address] Calcium (01/08/2019 3:24 PM CALL CENTER OPERATOR) athologist Signature Calcium 9.8 8.4 - 10.4 PN SOFT mg/dL Specimen Anatomical Collection Method Collection Time Receive d Time (Source) Location / / Volume Laterality 01/08/2019 3:24 PM 9 5:05 CALL CENTER OPERATOR PM CALL CENTER OPERATOR Narrative PN SOFT - 01/08/2019 5:28 PM CALL CENTER OPERATOR Performed at [facility], [facility] [address] [place] [address] CLIA number [id number] Evelia Temple PA-C LAB_1 Performing Organization Address City/[facility] Phon e Number PN SOFT [address] [place] [address] Intact PTH (01/08/2019 3:24 PM CALL CENTER OPERATOR) athologist Signature PTH 80 10 - 100 PN SOFT pg/mL Specimen Anatomical Collection Method Collection Time Receive d Time (Source) Location / / Volume Laterality 01/08/2019 3:24 PM 9 9:24 CALL CENTER OPERATOR AM CALL CENTER OPERATOR Narrative PN SOFT - 01/09/2019 10:19 AM CALL CENTER OPERATOR Performed at [address] [address] CLIA number [id number] Evelia Temple PA-C LAB_1 Performing Organization Address [facility] Phon e Number PN SOFT [address] [place] [address] Vitamin D 25-Hydroxy, Total (01/08/2019 3:24 PM CALL CENTER OPERATOR) athologist Signature Vitamin D 25 Oh 22 20 - 80 PN SOFT ng/mL Comment: Deficiency = <20 Adequate ??= 20-29 Preferred = 30-50 Uncertain safety = 51-80 High = >80 Specimen Anatomical Collection Method Collection Time Receive d Time (Source) Location / / Volume Laterality 01/08/2019 3:24 PM 9 6:54 CALL CENTER OPERATOR PM CALL CENTER OPERATOR Narrative PN SOFT - 01/08/2019 8:11 PM CALL CENTER [place]PERATOR [place] [address] CLIA number [id number] Evelia Temple PA-C LAB_1 Performing Organization Address [facility] Phon e Number PN SOFT [address] [place] [address] FERRITIN (01/08/2019 3:24 PM CALL CENTER OPERATOR) athologist [facility] Ferritin Serum 108 9 - 204 PN SOFT ng/mL Specimen Anatomical Collection Method Collection Time Receive d Time (Source) Location / / Volume Laterality 01/08/2019 3:24 PM 9 6:54 CALL CENTER OPERATOR PM CALL CENTER OPERATOR Narrative PN SOFT - 01/08/2019 8:12 PM CALL CENTER OPERATOR Performed at [place] [address] CLIA number [id number] Evelia Temple PA-C LAB_1 Performing Organization Address [facility] Phon e Number PN SOFT [address] [place] [address] (ABNORMAL) IRON PROFILE (IRON,TIBC,%SAT.(CALC)) (01/08/2019 3:24 PM CALL CENTER OPERATOR) [facility] gist Method Time Signature Iron, Serum 49 [...] Volume Laterality 01/08/2019 3:24 PM 9 6:54 CALL CENTER OPERATOR PM CALL CENTER OPERATOR Narrative PN SOFT - 01/08/2019 8:31 PM CALL CENTER OPERATOR Performed at [place] [address] [place] [address] CLIA number [id number] Evelia Temple PA-C LAB_1 Performing Organization Address City/State/ZIP Code Phon e Number PN SOFT [address] [place] [address] [phone] documented in this encounter Visit Diagnoses Diagnosis Status post bariatric surgery Bariatric surgery status Intestinal malabsorption, unspecified ty pe Personal history of endocrine disorder Personal history of other endocrine, met abolic, and immunity disorders documented in this encounter Care Teams Information Systems Project Manager Relationship Specialty Start Date End Date Unassigned, Provider PCP - General 08/08/[address] [place] [address] documented as of this encounter
--- OUTSIDE RECORDS SUMMARY | 2022-09-05 06:06 | XMS_ITS | Encounter Summary ---
:1985 Author Organization [facility] Address [address] [place] [address] Care Team Providers Name Role Phone Unassigned, Provider Primary Care Provider Unavailable Reason for Visit Reason Comments Sleeve Surg Followup DOS 07/2018 in [place] Encounter Details Date Type Department Care Team Description 01/22/2019 Office Visit [place] Bariat[facility] Evelia Temple Hypert ension, unspecified type (Primary Dx); Surgery & Weight ANASTACIO Poole Status post bariatric surgery; Center [address] [facility] Vitamin D deficiency; [address] [facility] Iron deficiency [address] [place] [address] [phone] Social History Tobacco Use Types Packs/Day Years [...] Patient Instructions Patient InstructionsEvelia Temple PA-C - 01/22/2019 11:00 AM CDT Look at supplements: Vitamin D3 - 6000 IU daily for 1 month and then 2000 IU daily indefinitely Iron - Ferrous Sulfate 325 mg daily Multivitamin daily Calcium daily Vitamin B12 weekly Patient Goals: 1. Schedule appointment with RD 2. Focus on 3 meals per day 3. Pay attention to pain and frothing - triggers, how often AdVantage Networksube Channels with variety of exercises: BeFit - https://www.beRecruited.Wedge Buster/user/BeFit Daily Burn - https://www.beRecruited.Wedge Buster/user/dailyburn FitnessBlender - https://www.LiveClips/user/FitnessBlender Hagen Fitness - https://www.beRecruited.Wedge Buster/user/mdloughy PopSugar - https://www.beRecruited.Wedge Buster/user/popsugartvfit HasFit - https://www.beRecruited.Wedge Buster/user/KozakSportsPerform Dancing/Chandu - https://www.beRecruited.Wedge Buster/user/FitnesswithJessica Exercise With Children: Barnebys Kids Yoga - http://www.foc.us/category/watch/ Fit Factor Kids exercise Action Songs for Children - https://www.beRecruited.com/playlist?vzul=XJ72O9A652A233HU70 Leah - https://www.Cuponomia/style/kids-yoga Low Intensity Exercise: Yoli [place] yoga - Https://www.beRecruited.Wedge Buster/user/TaraStilesJeff/featured Yoga with Genet - https://www.beRecruited.Wedge Buster/user/yogawithadriene Fightmaster Yoga - https://www.beRecruited.Wedge Buster/user/lesleyfightmaster AdVantage Networksube Chair exercises for weight loss - https://www.Zymergenube.com/results?search_query=chair+exercises+for+weight+loss AdVantage Networksube Low impact cardio workout for beginners - https://www.beRecruited.com/results?search_query=low+ impact+cardio+workout+for+beginners Exercise Apps: 7 minute workout documented in this encounter Progress Notes Evelia Temple PA-C - 01/22/2019 11:00 AM CDT Bariatric Surgery Post-Operative Follow Up DATE OF VISIT: 01/22/2019 SUBJECTIVE: This 33 y.o. year-old female with chronic medical problems including depression, anxiety presents for routine postoperative followup status post Laparoscopic Vertical Sleeve. Patient returns to the [facility] bariatric clinic for follow up. She had a vertical sleeve gastrectomy (using a 38 Chinese Bougie) and hiatal hernia repair at [facility] by Dr. Noelle Akbar on 07/23/18. Patient's pre-operative weight was 294 lbs, BMI 50.4. Patient did have a CT scan of the abdomen about 2 weeks post-op due to abdominal pain and a absess vs seroma was seen to the abdominal wall, no evidence of a gastric sleeve leak. Patient states she moved back to [place] from [place] about 3 weeks after bariatric surgery. Patient did not follow up with dietitians after last visit due to poor weather conditions. She livesin [place], [place]. Patient did complete labs after last [...] oz Goal Weight: 128 lb Starting BMI: 37.90857021 Percent Exess Weight Loss: 19.8399090989912 Current BMI: 34.372521730 Percent Totoal Body Weight Loss: 7.96839625780875 Date of surgery 07/23/2018. The patient is [...] file Gets together: Not on file Attends muslim service: Not on file Active member of [...] (162.6 cm) Wt 198 lb 4.8 oz (05957 g) BMI 34.04 kg/m?? BMI: Estimated body mass index is 34.04 kg/m?? as calculated from the following: Height as of this encounter: 5' 4 (162.6 cm). Weight as of this encounter: 198 lb 4.8 oz (24975 g). GENERAL: Patient appears no apparent distress RESPIRATORY: Normal respiratory effort PSYCH: no overt evidence of anxiety or depression SKIN: no rashes on exposed skin NEURO: normal gait MUSCULOSKELETAL: no LE edema LABORATORY STUDIES: Recent [facility] Labs 11/20/2018 Vitamin B12 888 Potassium [...] lose further weight. Total time 25 minutes, aqyj-kd-ghob counseling time 15 minutes, spent discussing lifestyle [...] metabolism documented in this encounter Care Teams Traffic Observer Relationship Specialty Start Date End Date Unassigned, Provider PCP - General 08/08/[address] [place] [address] documented as of this encounter
--- OUTSIDE RECORDS SUMMARY | 2022-09-05 06:06 | XMS_ITS | Encounter Summary ---
:1985 Author Organization [facility] Address [address] [place] [address] Care Team Providers Name Role Phone Unassigned, Provider Primary Care Provider Unavailable Reason for Visit Procedure/Equipment (Routine) - Incomplete Specialty Diagnoses / Procedures Referred By Contact Refer red To Contact Diagnoses Epigastric pain Evelia Temple PA-C Procedures [place] UGI W Esophagus [address] [facility] [address] [place], [place] [address] Referral ID Status Reason Start Date Expiration Date Visits V isits Requested Authorized [id number] Incomplete 04/09/2019 07/08/2020 1 1 Encounter Details Date Type Department Care Team Description 04/24/2019 Ancillary Procedure [place] [facility] Evelia Temple Epigastric pain [address] [facility] [place] [address] [address] [facility] [phone] [facility] [address] [place], [place] [address] (Wo rk) Social History Tobacco Use Types [...] 04/24/2019 2:18 PM CDT COMPARISON: ??None. FINDINGS: Director Of Graduate Medical Education image of the abdomen vivek ws a [...] different from the original. COMPARISON: None. FINDINGS: Director Of Graduate Medical Education image of the abdomen [facility] ws a nonobstructive bowel gas [...] 3. Otherwise unremarkable study. Evelia Temple PA-C [facility] documented in this encounter Visit Diagnoses Diagnosis [...] 12/25 documented in this encounter Care Teams Environmental Programs Manager Relationship Specialty Start Date End Date Unassigned, Provider PCP - General 08/08/[address] [place] [address] documented as of this encounter
--- OUTSIDE RECORDS SUMMARY | 2022-09-05 06:06 | XMS_ITS | Encounter Summary ---
:1985 Author Organization [employer] Address [address] [place] [address] Care Team Providers Name Role Phone Unassigned, Provider Primary Care Provider Unavailable Reason for Referral (Routine) - Closed Specialty Diagnoses / Procedures Referred By Contact Refer red To Contact Diagnoses Bariatric surgery status Abdominal pain, unspecified abdominal location Deisy Hauser MBBS Procedures [place] [address] [place] [address] Referral ID Status Reason Start Date Expiration Date Visits Requ ested Visits Authorized [id number] Closed 05/27/2019 08/25/2020 1 1 Reason for Visit Reason Comments Sleeve Surg Followup Encounter Details Date Type Department Care Team Description 05/27/2019 Office Visit [facility] Deisy Hauser Ba riatric surgery status (Primary Dx); & [facility] HAILEE Abdominal pain, unspecified abdominal lo cation; [facility] [facility] [address] Depression, major, recurrent, moderate ( [facility]) [address] [place] [address] [place], [place] [phone] (Work) [phone] Social History Tobacco Use Types Packs/Day Years [...] foods for a few weeks. Go to www.Adype to learn more about this diet. You'll [...] cheese. Hard cheeseslike cheddar, Shahab, Parmesan, and Bermudian are okay. So are small amounts (1 [...] to eat. Soare pumpkin, rutabaga, seaweed, sprouts, Bermudian chard, and spinach. You can eat scallions (green partonly) and squash (not butternut). You can eat tomatoes, turnips, watercress, yams, and zucchini. Youcan also have small amounts of artichoke hearts (from can, 1 oz), carrots, corn (?? cob), and sweet potato (?? cup). Avoid: Artichokes, asparagus, [place] sprouts, wojciech cabbage, cauliflower, and celery. And [...] can you learn more? 1. Go to https://Meludia/Sumomi or [employer]/[facility]. 2. Enter L235 in the search box. Current as of: September 11, 2018 Content Version: 12.0 ?? [id number] [employer]. Care instructions adapted under license by your healthcare professional. If you have questions about a medical condition or this instruction, always ask your healthcare professional. [employer] disclaims any warranty or liability for your [...] Family history were reviewed and updated in [facility] SOCIAL HISTORY: Social History Socioeconomic [...] file Gets together: Not on file Attends congregation service: Not on file Active member of [...] to schedule a visit with anyone around [facility]. Does report occasional part of harming [...] oz Goal Weight: 128 lb Starting BMI: 37.78759075 Percent Exess Weight Loss: 51.0012802863464 Current BMI: 29.22338128 Percent Totoal Body Weight Loss: 20.3444287166862 Last visit on 04/09/2019 was 174.7 pounds. [...] scheduling with counselor, patient was offered a ottoniel Greene services which she declined as she [facility] and would like to schedule a [...] moderate documented in this encounter Care Teams Grain Shoveler Relationship Specialty Start Date End Date Unassigned, Provider PCP - General 08/08/[address] [place] [phone] documented as of this encounter
--- OUTSIDE RECORDS SUMMARY | 2022-09-05 06:06 | XMS_ITS | Encounter Summary ---
:1985 Author Organization [employer] Address [address] [place] [address] Care Team Providers Name Role Phone Unassigned, Provider Primary Care Provider Unavailable Reason for Visit Reason Comments APPOINTMENT REQUEST to review medication refill and establish with new provider. Encounter Details Date Type Department Care Team Description 08/11/2019 Telephone [facility] Radha Kruger, APPOINTMENT REQUEST (to & [facility] review appraiser medication [address] [facility]. S refill and establish [address] with new provider. ) [place] [address] Social History Tobacco Use Types Packs/Day Years [...] showed for last scheduled appt with both PAHudsonC and RD. Attempted to contact Maria Alejandra [...] on filedocumented in this encounter Care Teams Poker Supervisor Relationship Specialty Start Date End Date Unassigned, Provider PCP - General 08/08/[address] [place] [address] documented as of this encounter
--- OUTSIDE RECORDS SUMMARY | 2022-09-05 06:06 | XMS_ITS | Encounter Summary ---
:1985 Author Organization [facility] Address [address] [place] [address] Care Team Providers Name Role Phone Unavailable Primary Care Provider Unavailable Reason for Visit Reason Comments PUNCTURE, NOS Encounter Details Date Type Department Care Team Description 07/12/2000 Telephone Careline Kaci Jj RN PUNCTURE, NOS [address] [place], [place] [address] [place] [address] [phone] (Wo rk) Social History Tobacco Use Types Packs/Day Years Used Date Smoking Tobacco: Never Assessed Sex Assigned at Date Recorded Not on file documented as of this encounter Nursing Notes 07/12/2000 11:59 PM CDT >> KACI JJ [facility] Jul 12, 2000 7:10 PM >> CALL RECEIVED. Contact: carmita [phone] Concern: Pt's mother is calling because her [...] and ask to speak to the physician international editorial producer to decide if he fe els she should be evaluated tonight or if it can wait until tomorrow. Instructed to call back if sx worsen/change. Mother states understanding and is comfortable with plan. documented in this encounter Plan of Treatment Not on filedocumented as of this encounter Visit Diagnoses Not on filedocumented in this encounter
--- OUTSIDE RECORDS SUMMARY | 2022-09-05 06:06 | XMS_ITS | Encounter Summary ---
:1985 Author Organization [employer] Address [address] [place] [address] Care Team Providers Name Role Phone Unassigned, Provider Primary Care Provider Unavailable Reason for Visit Reason Comments Sleeve Surg Followup Encounter Details Date Type Department Care Team Description 11/28/2018 Office Visit [facility] Bariatric Evelia Temple Hypert ension, unspecified type (Primary Dx); Surgery & Weight ANASTACIO Poole Status post bariatric surgery; Center [address] [facility] Intestinal malabsorption, un specified type; [address] [facility]. [address] Personal history of endocrine disorder; [address] [place], [place] Class 2 obesity with body ma ss index (BMI) of 36.0 to 36.9 in adult, unspecified obesity type, unspecified whether [place] [id number] [phone] Social History Tobacco Use Types Packs/Day Years Used Date Smoking Tobacco: Never Smokeless Tobacco: Never Alcohol Use Standard Drinks/Week Comments Yes 0 (1 standard drink = 0.6 oz pure alcoho l) rare Sex Assigned at Date Recorded Not on file documented as of this encounter Last Filed Vital Signs Vital Sign Reading Time Taken Comments Blood Pressure 124/77 11/28/2018 10:20 AM CENTER HUMAN RESOURCES MANAGER Pulse 71 11/28/2018 10:20 AM CENTER HUMAN RESOURCES MANAGER Temperature - - Respiratory Rate - - Oxygen Saturation - - Inhaled Oxygen Concentration - - Weight 97.7 kg (215 lb 6.4 oz) 11/28/2018 10:20 AM CENTER HUMAN RESOURCES MANAGER Height 162.6 cm (5' 4) 11/28/2018 10:20 AM CENTER HUMAN RESOURCES MANAGER Body Mass Index 36.97 11/28/2018 10:20 AM CENTER HUMAN RESOURCES MANAGER documented in this encounter Patient Instructions Patient InstructionsShEvelia irizarry PA-C - 11/28/2018 10:00 AM CENTER HUMAN RESOURCES MANAGER Congratulations on your many successes and keep [...] [facility]- ground floor of the [facility], [facility]. How: Come to any class (First class is free!), and if you like it purchase a 16 class voucher and then come when you can! By signing up you are NOT committed to class, simply acknowledging interest. Class is limited to 6 participants Cost: $150 for a 16 session voucher. -For more information please contact Munira at [phone] or [email or web address] Please join us! -Check us out on [...] prior to the test. You may call [phone] to schedule a lab appointment at the [facility] lab nearest you. Scheduled appointments are preferred; however, walk-ins are also accepted. The [place] location is open Saturdays. Exercise With Children: ShopClues.com Yoga - http://www.[employer]/category/watch/ Fit Factor Kids exercise Action Songs for Children - https://www.DIVINE Media Networks.com/playlist?ozwz=[email or web address] Leah - https://www.TotalTakeout.Althea Systems/style/kids-yoga ER HUMAN RESOURCES MANAGER documented in this encounter Progress Notes Evelia Temple PA-C - 11/28/2018 10:00 AM CST Bariatric Surgery Post-Operative Follow Up DATE OF VISIT: 12/02/2018 SUBJECTIVE: This 33 y.o. year-old female with chronic medical problems including depression, anxiety presents for routine postoperative followup status post Laparoscopic Vertical Sleeve. Patient presents to the [facility] bariatric clinic to establish care after a vertical sleeve gastrectomy (using a 38 Albanian Bougie) and hiatal hernia repair at [facility] in [facility] by Dr. Noelle Akbar on 07/23/18. [...] leak. Patient states she moved back to [place] from [place] about 3 weeks after bariatric surgery. 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 [...] oz Goal Weight: 128 lb Starting BMI: 37.29785218 Date of surgery 07/23/2018. The patient is [...] (162.6 cm) Wt 215 lb 6.4 oz (09910 g) BMI 36.97 kg/m?? BMI: Estimated body mass index is 36.97 kg/m?? as calculated from the following: Height as of this encounter: 5' 4 (162.6 cm). Weight as of this encounter: 215 lb 6.4 oz (40929 g). GENERAL: Patient appears no apparent distress RESPIRATORY: Normal respiratory effort PSYCH: no overt evidence of anxiety or depression SKIN: no rashes on exposed skin NEURO: normal gait MUSCULOSKELETAL: no LE edema LABORATORY STUDIES: Recent [facility] 11/20/2018 Vitamin B12 888 Potassium [...] obesity type, unspecified whether serious comorbidity present ([facility]) E66.9 Z68.36 PLAN: Routine laboratory studies needed [...] lose further weight. Total time 60 minutes, [id number] counseling time 45 minutes, spent discussing lifestyle interventions for management of weight post-surgery as above. Evelia Temple PA-C ER HUMAN RESOURCES MANAGER documented in this encounter Plan of Treatment Not on filedocumented as of this encounter Results PREALBUMIN (01/08/2019 3:24 PM CENTER HUMAN RESOURCES MANAGER) athologist Signature Prealbumin 17.5 16.0 - 38.0 PN SOFT mg/dL Specimen Anatomical Collection Method Collection Time Receive d Time (Source) Location / / Volume Laterality 01/08/2019 3:24 PM 9 6:54 CENTER HUMAN RESOURCES MANAGER PM CENTER HUMAN RESOURCES MANAGER Narrative PN SOFT - 01/08/2019 8:31 PM CENTER HUMAN RESOURCES MANAGER Performed at [facility], [address] [place] [address] CLIA number [id number] Evelia Temple PA-C LAB_1 Performing Organization Address City/State/ZIP Code Phon e Number PN SOFT [address] [facility] [place] [address] Calcium (01/08/2019 3:24 PM CENTER HUMAN RESOURCES MANAGER) athologist Signature Calcium 9.8 8.4 - 10.4 PN SOFT mg/dL Specimen Anatomical Collection Method Collection Time Receive d Time (Source) Location / / Volume Laterality 01/08/2019 3:24 PM 9 5:05 CENTER HUMAN RESOURCES MANAGER PM CENTER HUMAN RESOURCES MANAGER Narrative PN SOFT - 01/08/2019 5:28 PM CENTER HUMAN RESOURCES MANAGER Performed at [facility], [address] [place] [address] CLIA number [id number] Evelia Temple PA-C LAB_1 Performing Organization Address [facility] Phon e Number PN SOFT [address] [place] [address] Intact PTH (01/08/2019 3:24 PM CENTER HUMAN RESOURCES MANAGER) athologist Signature PTH 80 10 - 100 PN SOFT pg/mL Specimen Anatomical Collection Method Collection Time Receive d Time (Source) Location / / Volume Laterality 01/08/2019 3:24 PM 9 9:24 CENTER HUMAN RESOURCES MANAGER AM CENTER HUMAN RESOURCES MANAGER Narrative PN SOFT - 01/09/2019 10:19 AM CENTER HUMAN RESOURCES MANAGER Performed at [address] [address] CLIA number [id number] Evelia Temple PA-C LAB_1 Performing Organization Address City/[facility] Phon e Number PN SOFT [address] [place] [address] Vitamin D 25-Hydroxy, Total (01/08/2019 3:24 PM CENTER HUMAN RESOURCES MANAGER) athologist Signature Vitamin D 25 Oh 22 20 - 80 PN SOFT ng/mL Comment: Deficiency = <20 Adequate ??= 20-29 Preferred = 30-50 Uncertain safety = 51-80 High = >80 Specimen Anatomical Collection Method Collection Time Receive d Time (Source) Location / / Volume Laterality 01/08/2019 3:24 PM 9 6:54 CENTER HUMAN RESOURCES MANAGER PM CENTER HUMAN RESOURCES MANAGER Narrative PN SOFT - 01/08/2019 8:11 PM CENTER HUMAN RESOURCES MANAGER Performed at [address] [address] CLIA number [id number] Evelia Poole Windy CHAVES LAB_1 Performing Organization Address [facility] Phon e Number PN SOFT [address] [place] [address] FERRITIN (01/08/2019 3:24 PM CENTER HUMAN RESOURCES MANAGER) P athologist Signature Ferritin Serum 108 9 - 204 PN SOFT ng/mL Specimen Anatomical Collection Method Collection Time Receive d Time (Source) Location / / Volume Laterality 01/08/2019 3:24 PM 9 6:54 CENTER HUMAN RESOURCES MANAGER PM CENTER HUMAN RESOURCES MANAGER Narrative PN SOFT - 01/08/2019 8:12 PM CENTER HUMAN RESOURCES MANAGER Performed at [address] [address] CLIA number [id number] Evelia R Windy MCCONNELLC LAB_1 Performing Organization Address [facility] Phon e Number PN SOFT [address] [place] [address] (ABNORMAL) IRON PROFILE (IRON,TIBC,%SAT.(CALC)) (01/08/2019 3:24 PM CENTER HUMAN RESOURCES MANAGER) Patholo gist Method Time Signature Iron, Serum [...] Volume Laterality 01/08/2019 3:24 PM 9 6:54 CENTER HUMAN RESOURCES MANAGER PM CENTER HUMAN RESOURCES MANAGER Narrative PN SOFT - 01/08/2019 8:31 PM CENTER HUMAN RESOURCES MANAGER Performed at [address] [address] CLIA number [id number] Evelia Poole Windy CHAVES LAB_1 Performing Organization Address [facility] Phon e Number PN SOFT [address] [place] [address] documented in this encounter Visit Diagnoses Diagnosis [...] disorders documented in this encounter Care Teams Hand Paint Mixer Relationship Specialty Start Date End Date Unassigned, Provider PCP - General 08/08/00 [address] [place] [address] documented as of this encounter
--- OUTSIDE RECORDS SUMMARY | 2022-09-05 06:06 | XMS_ITS | Encounter Summary ---
:1985 Author Organization [employer] Address [address] [place] [address] Care Team Providers Name Role Phone Unassigned, Provider Primary Care Provider Unavailable Reason for Visit Reason Comments Nutrition Counseling Encounter Details Date Type Department Care Team Description 04/09/2019 Nutrition [facility] Roberta Sanchez, Morbid obesity with & Weight Center RDN, LD BMI of 40.0-44.9, [address] [facility]. [address] [facility] (C) [address] [place] [phone] (Wo rk) Social History Tobacco Use Types Packs/Day Years Used Date Smoking Tobacco: Never Smokeless Tobacco: Never Alcohol Use Standard Drinks/Week Comments Not Currently 0 (1 standard drink = 0.6 oz pure alcoho l) rare Sex Assigned at Date Recorded Not on file documented as of this encounter Progress Notes Roberta Sanchez, RD - 04/09/2019 9:30 AM CDT [facility] Nutrition Therapy: Bariatric Post-Op ASSESSMENT: Referring Provider: Evelia Temple PA-C BMI: Estimated body mass index is 34.04 kg/m?? as calculated from the following: Height as of 01/22/19: 5' 4 (162.6 cm). Weight as of 01/22/19: 198 lb 4.8 oz (19621 g). Follow-up after sleeve gastrectomy surgery. [place] Date of Surgery: July 23, 2018. 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 Reports issues with food tolerances - [...] ([facility]) documented in this encounter Care Teams Health Benefits Specialist Relationship Specialty Start Date End Date Unassigned, Provider PCP - General 08/08/[address] [place] [address] documented as of this encounter
--- OUTSIDE RECORDS SUMMARY | 2022-09-05 06:07 | XMS_ITS | Encounter Summary ---
:1985 Author Organization [facility] Address [address] [place] [address] Care Team Providers Name Role Phone Annemarie Montiel M.D. Primary Care Provider [phone] Reason for Visit Reason Comments Medical Information Encounter Details Date Type Department Care Team Description 12/09/2020 Clinical Communication Department of [facility] in [place], [place] [address] [phone] Social History Tobacco Use Types Packs/Day Years [...] more drinks on one Never 03/29/2020 occasion? 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 - 12/09/2020 2:09 PM SUPERVISOR FURNACE PROCESS Patient wanting to get Botox earlier than 02/02/21. Instructed patient that Botox is every three months. If given earlier than that insurance would not cover it. Patient will wait for her scheduled appt. In January. RVISOR FURNACE PROCESS Telephone Encounter - Mónica Saleh L.P.N. - 12/09/2020 1:55 PM SUPERVISOR FURNACE PROCESS Dec has some return appointment slots. Please call her to schedule. I do not see what you are seeing on February 02? RVISOR FURNACE PROCESS Telephone Encounter - Stiven Pinto - 12/09/2020 [...] Action Needed: Name of Medication (if relevant): RVISOR FURNACE PROCESS documented in this encounter Plan of Treatment Upcoming Encounters Date Type Specialty Care Team Description 10/19/2022 Procedure visit Neurology Marina Winter M.D., M.P.H. [address] [place] [phone] (Wo rk) Scheduled Procedures Name Priority Associated Diagnoses Date/Time LIFT THIGH Excessive And Redundant Skin And Subcutaneous Tissue documented as of this encounter Visit Diagnoses Not on filedocumented in this encounter Additional Health Concerns Assessment Noted Time PHQ-9 Depression Total Score: 12 06/10/2020 1:20 PM CD T documented as of this encounter Care Teams Oil Well Directional Surveyor Relationship Specialty Start Date End Date Annemarie Montiel M.D. PCP - General 04/19/[address] [phone] documented as of this encounter
--- OUTSIDE RECORDS SUMMARY | 2022-09-05 06:07 | XMS_ITS | Encounter Summary ---
:1985 Author Organization [facility] Address [address] [place] [address] Care Team Providers Name Role Phone Annemarie Montiel M.D. Primary Care Provider [phone] Reason for Referral Outpatient (Routine) - Closed Specialty Diagnoses / Procedures Referred By Contact Refer red To Contact Diagnoses Migraine Headache Marina Winter M.D., [facility] Procedures Botox for chronic migraine M.P.H. [address] [place] [phone] Referral ID Status Reason Start Date Expiration Date Visits Requ ested Visits Authorized [id number] Closed 08/04/2021 08/04/2022 1 1 Reason for Visit Reason Comments Botulinum Toxin Injection Outpatient (Routine) - Closed Specialty Diagnoses / Procedures Referred By Contact Refer red To Contact Diagnoses Migraine Headache Marina Winter M.D., [facility] Procedures Botox for Chronic Migraine M.P.H. [address] [place] [address] Referral ID Status Reason Start Date Expiration Date Visits Requ ested Visits Authorized [id number] Closed 05/05/2021 05/05/2022 1 1 Encounter Details Date Type Department Care Team Description 08/04/2021 Procedure visit Department of Neurology Marina Winter, Migraine Headache in [facility] jeevan Jaramillo, M.P.H. [address] [facility] [address] [place] [address] [place] [address] [phone] Social History Tobacco Use Types Packs/Day Years [...] How often do you attend anabaptism or taoist Never 07/04/2019 services? 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 [address] [address] [phone] (Wo rk) Scheduled Procedures Name Priority Associated Diagnoses Date/Time LIFT THIGH Excessive And Redundant Skin And Subcutaneous Tissue documented as of this encounter Procedures Procedure Name Priority Date/Time Associated Comments Diagnosis ME CHEMODENERV FACIAL Routine 08/04/2021 1:21 PM Migraine Head ache Results for this TRIGEM NIDHI CDT procedure are i n the results section. documented in this encounter Results ME CHEMODENERV FACIAL TRIGEM NIDHI (08/04/2021 1:21 PM [...] Needle length: 0.5 in Injection site details Elementary Instructional Coach / Procerus muscle(s): 5 units into the left emergency department aide muscle, 5 units into the right emergency department aide muscle and 5 units into the procerus [...] documented as of this encounter Care Teams Woodworker Helper Relationship Specialty Start Date End Date Annemarie Montiel M.D. PCP - General 04/19/[address] [phone] documented as of this encounter
--- OUTSIDE RECORDS SUMMARY | 2022-09-05 06:07 | XMS_ITS | Encounter Summary ---
:1985 Author Organization [facility] Address [address] [place] [address] Care Team Providers Name Role Phone Annemarie Montiel M.D. Primary Care Provider [phone] Encounter Details Date Type Department Care Team Description 08/08/2022 Orders Only [facility] PCP [facility] MNT Annemarie Montiel , Screening Lipid Sharif.Bean [address] [place], [place] [phone] (Wo rk) Social History [...] often do you attend roman catholic or hindu Never 07/04/2019 services? Do you [...] at Date Recorded Female 10/16/2018 10:53 AM DESKTOP SUPPORT CONSULTANT documented as of this encounter Plan of Treatment Upcoming Encounters Date Type Specialty Care Team Description 10/19/2022 Procedure visit Neurology Marina Winter M.D., M.P.H. [address] [place], [place] [phone] (Wo rk) Scheduled Orders Name Type Priority Associated Diagnoses Order S chedule Lipid Panel Lab Routine Screening Lipid Expected: , Expires: 02/04/2023 Scheduled Procedures Name Priority Associated Diagnoses Date/Time LIFT THIGH Excessive And Redundant Skin And Subcutaneous Tissue documented as of this encounter Visit Diagnoses Diagnosis Screening Lipid documented in this encounter Additional Health Concerns Assessment Noted Time PHQ-9 Depression Total Score: 12 06/10/2020 1:20 PM CD T documented as of this encounter Care Teams Watch Guard Gate Relationship Specialty Start Date End Date Annemarie Montiel M.D. PCP - General 04/19/[address] [place] [phone] documented as of this encounter
--- OUTSIDE RECORDS SUMMARY | 2022-09-05 06:07 | XMS_ITS | Encounter Summary ---
:1985 Author Organization [facility] Address [address] [place] [address] Care Team Providers Name Role Phone Annemarie Montiel M.D. Primary Care Provider Reason for Visit Reason Comments Insurance denial Encounter Details Date Type Department Care Team Description 06/13/2022 Clinical Communication Division of Plastic Liam white, Insurance denial Surgery in [place], [place] M.B.B.S. [address] [facility] [address] [place] [phone] Social History Tobacco Use Types Packs/Day Years [...] How often do you attend hindu or anabaptist Never 07/04/2019 services? Do you [...] at Date Recorded Female 10/16/2018 10:53 AM CORRAL BOSS documented as of this encounter Miscellaneous Notes Telephone Encounter - Jorje Hernandez RCiera - 06/13/2022 12:43 PM CDT SUBJECTIVE CHIEF COMPLAINT / REASON FOR CALL Insurance denial Information Discussed I called Maria Alejandra to inform that per her insurance the bilateral thigh lift was denied because her insurance considers this procedure cosmetic. Maria Alejandra then requested a cost estimate for the thigh lift and bilateral brachioplasty. The Cosmetic Surgery Package Quotation form ([id number]) was completed and sent to the [facility] Estimating office for processing. The Cosmetic Surgery [...] Neurology Marina Winter M.D., M.P.H. [address] [place] [phone] (Wo rk) Scheduled Procedures Name Priority Associated Diagnoses Date/Time LIFT THIGH Excessive And Redundant Skin And Subcutaneous Tissue documented as of this encounter Visit Diagnoses Not on filedocumented in this encounter Additional Health Concerns Assessment Noted Time PHQ-9 Depression Total Score: 12 06/10/2020 1:20 PM CD T documented as of this encounter Care Teams Curatorial Specialist Relationship Specialty Start Date End Date Annemarie Montiel M.D. PCP - General 04/19/17 [address] [place] [phone] documented as of this encounter
--- OUTSIDE RECORDS SUMMARY | 2022-09-05 06:07 | XMS_ITS | Encounter Summary ---
:[address] [facility] Address [address] [place] [address] Care Team Providers Name Role Phone Annemarie Montiel M.D. Primary Care Provider [phone] Reason for Referral Outpatient (Routine) - Closed Specialty Diagnoses / Procedures Referred By Contact Refer red To Contact Diagnoses Migraine Headache Marina Winter M.D., [facility] Procedures Botox for Chronic Migraine M.P.H. [address] [phone] Referral ID Status Reason Start Date Expiration Date Visits Requ ested Visits Authorized [id number] Closed 05/05/2021 05/05/2022 1 1 Outpatient (Routine) - Closed Specialty Diagnoses / Procedures Referred By Contact Refer red To Contact Diagnoses Migraine Headache Marina Winter M.D., [facility] Procedures Botox for chronic migraine M.P.H. [address] [phone] Referral ID Status Reason Start Date Expiration Date Visits Requ ested Visits Authorized [id number] Closed 05/05/2021 05/05/2022 1 1 Reason for Visit Reason Comments Botulinum Toxin Injection Outpatient (Routine) - Closed Specialty Diagnoses / Procedures Referred By Contact Refer red To Contact Diagnoses Migraine Headache Marina Winter M.D., [facility] Procedures Botox for Chronic Migraine M.P.H. [address] [place] [address] Referral ID Status Reason Start Date Expiration Date Visits Requ ested Visits Authorized [id number] Closed 02/02/2021 02/02/2022 1 1 Encounter Details Date Type Department Care Team Description 05/05/2021 Procedure visit Department of Neurology Marina Winter, Migraine Headache in [facility] jeevan Jaramillo, M.P.H. [address] [facility] [place] [phone] Social History Tobacco Use Types Packs/Day Years [...] How often do you attend mosque or hindu Never 07/04/2019 services? 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 Prior preventative medication trials: amitriptyline and topiramate Headache frequency Headache days per month: 5 days Severe headache days per month: 1 days POST-PROCEDURE DETAILS: Procedure completed successfully: yes Complications: no apparent complications documented in this encounter Plan of Treatment Upcoming Encounters Date Type Specialty Care Team Description 10/19/2022 Procedure visit Neurology Marina Winter M.D., M.P.H[facility] [address] [place] [phone] (Wo rk) Scheduled Orders Name Type Priority Associated Diagnoses Order S chedule Botox for Chronic Procedures Routine Migraine Headache Expec heaven: 08/05/2021, Migraine Expires: 2021 Scheduled Procedures Name Priority Associated Diagnoses Date/Time LIFT THIGH Excessive And Redundant Skin And Subcutaneous Tissue documented as of this encounter Procedures Procedure Name Priority Date/Time Associated Comments Diagnosis CO CHEMODENERV FACIAL Routine 05/05/2021 3:00 PM Migraine Head ache Results for this TRIGEM NIDHI CDT procedure are i n the results section. documented in this encounter Results CO CHEMODENERV FACIAL TRIGEM NIDHI (05/05/2021 3:00 PM [...] Needle length: 0.5 in Injection site details Research Center Director / Procerus muscle(s): 5 units into the left pharmacy specialist muscle, 5 units into the right pharmacy specialist muscle and 5 units into the procerus [...] that is not covered by a third democrat. ?? Prior preventative medication trials: am itriptyline [...] documented as of this encounter Care Teams Cloth Sponger Relationship Specialty Start Date End Date Annemarie Montiel M.D. PCP - General 04/19/[address] [phone] documented as of this encounter
--- OUTSIDE RECORDS SUMMARY | 2022-09-05 06:07 | XMS_ITS | Encounter Summary ---
:1985 Author Organization [facility] Address [address] [place] [address] Care Team Providers Name Role Phone Annemarie Montiel M.D. Primary Care Provider Reason for Visit Reason Comments insurance request Encounter Details Date Type Department Care Team Description 05/19/2022 Clinical Communication Division of Plastic Liam white insurance request Surgery in [facility] [address] [facility] [address] [place] [phone] Social History Tobacco Use Types Packs/Day Years [...] How often do you attend jew or buddhist Never 07/04/2019 services? 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 - 05/19/2022 3:32 PM CDT SUBJECTIVE CHIEF [...] she can send the documentation to [facility]. Maria Alejandra verbalized understanding. PLAN Disposition/Recommendation: patient will fax documentation Information/Education: patient/caller able to teach back Caller agreeable to plan of care: yes The following references were used: other PreD documented in this encounter Plan of Treatment Upcoming Encounters Date Type Specialty Care Team Description 10/19/2022 Procedure visit Neurology Marina Winetr M.D., M.P.H. [address], [place] [phone] (Wo rk) Scheduled Procedures Name Priority Associated Diagnoses Date/Time LIFT THIGH Excessive And Redundant Skin And Subcutaneous Tissue documented as of this encounter Visit Diagnoses Not on filedocumented in this encounter Additional Health Concerns Assessment Noted Time PHQ-9 Depression Total Score: 12 06/10/2020 1:20 PM CD T documented as of this encounter Care Teams Rental Clerk Tool And Equipment Relationship Specialty Start Date End Date Annemarie Montiel M.D. PCP - General 04/[address], [place] [phone] documented as of this encounter
--- OUTSIDE RECORDS SUMMARY | 2022-09-05 06:07 | XMS_ITS | Encounter Summary ---
:1985 Author Organization [facility] Address [address] [place] [address] Care Team Providers Name Role Phone Annemarie Montiel M.D. Primary Care Provider [phone] Reason for Referral Outpatient (Routine) - Closed Specialty Diagnoses / Procedures Referred By Contact Refer red To Contact Diagnoses Migraine Headache Marina Winter M.D., [facility] Procedures Botox for Chronic Migraine M.P.H. [address] [phone] Referral ID Status Reason Start Date Expiration Date Visits Requ ested Visits Authorized [id number] Closed 02/02/2021 02/02/2022 1 1 Outpatient (Routine) - Closed Specialty Diagnoses / Procedures Referred By Contact Refer red To Contact Diagnoses Migraine Headache Marina Winter M.D., [facility] Procedures Botox for chronic migraine M.P.H. [address] [phone] Referral ID Status Reason Start Date Expiration Date Visits Requ ested Visits Authorized [id number] Closed 02/02/2021 02/02/2022 1 1 Reason for Visit Reason Comments Botulinum Toxin Injection Outpatient (Routine) - Closed Specialty Diagnoses / Procedures Referred By Contact Refer red To Contact Diagnoses Migraine Headache Marina Winter M.D., [facility] Procedures Botox for Chronic Migraine M.P.H. [address] [place] [address] Referral ID Status Reason Start Date Expiration Date Visits Requ ested Visits Authorized [id number] Closed 11/04/2020 11/04/2021 1 1 Encounter Details Date Type Department Care Team Description 02/02/2021 Procedure visit Department of Neurology Marina Winter, Migraine Headache in [facility] jeevan Jaramillo, M.P.H. 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 [address] [phone] (Wo rk) Scheduled Orders Name Type Priority Associated Diagnoses Order S chedule Botox for Chronic Procedures Routine Migraine Headache Expec heaven: 05/04/2021, Migraine Expires: 2021 Scheduled Procedures Name Priority Associated Diagnoses Date/Time LIFT THIGH Excessive And Redundant Skin And Subcutaneous Tissue documented as of this encounter Procedures Procedure Name Priority Date/Time Associated Comments Diagnosis SC CHEMODENERV FACIAL Routine 02/02/2021 2:00 PM Migraine Head ache Results for this TRIGEM NIDHI CDT procedure are i n the results section. documented in this encounter Results SC CHEMODENERV FACIAL TRIGEM NIDHI (02/02/2021 2:00 PM [...] Needle length: 0.5 in Injection site details Public Health Service Officer / Procerus muscle(s): 5 units into the left director of operations muscle, 5 units into the right director of operations muscle and 5 units into the procerus [...] documented as of this encounter Care Teams Ceramics Machine Operator Relationship Specialty Start Date End Date Annemarie Montiel M.D. PCP - General 04/19/[address] [phone] documented as of this encounter
--- OUTSIDE RECORDS SUMMARY | 2022-09-05 06:07 | XMS_ITS | Encounter Summary ---
:1985 Author Organization [facility] Address [address] [place] [address] Care Team Providers Name Role Phone Annemarie Montiel M.D. Primary Care Provider [phone] Reason for Referral Outpatient (Routine) - Authorized Specialty Diagnoses / Procedures Referred By Contact Refer red To Contact Diagnoses Migraine Headache Marina Winter M.D., [facility] Procedures Botox for Chronic Migraine M.P.H. [address] [place] [phone] Referral ID Status Reason Start Date Expiration Date Visits V isits Requested Authorized [id number] Authorized 05/18/2022 05/18/2023 4 4 Reason for Visit Reason Comments Botulinum Toxin Injection Outpatient (Routine) - Authorized Specialty Diagnoses / Procedures Referred By Contact Refer red To Contact Diagnoses Migraine Headache Marina Winter M.D., [facility] Procedures Botox for Chronic Migraine M.P.H. [address] [place] [address] Referral ID Status Reason Start Date Expiration Date Visits V isits Requested Authorized [id number] Authorized 10/06/2020 10/06/2022 4 4 Encounter Details Date Type Department Care Team Description 05/18/2022 Procedure visit Department of Neurology Marina Winter, Migraine Headache in [facility] jeevan Jaramillo, M.P.H. [address] [place] [address], [place] [phone] Social History Tobacco Use Types Packs/Day Years [...] How often do you attend anabaptist or orthodoxy Never 07/04/2019 services? 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 [address] [phone] (Wo rk) Scheduled Orders Name Type Priority Associated Diagnoses Order S chedule Botox for Chronic Procedures Routine Migraine Headache 4 Occ urrences starting Migraine 05/18/2022 unti l 05/18/2025 Scheduled Procedures Name Priority Associated Diagnoses Date/Time LIFT THIGH Excessive And Redundant Skin And Subcutaneous Tissue documented as of this encounter Procedures Procedure Name Priority Date/Time Associated Comments Diagnosis HI CHEMODENERV FACIAL Routine 05/18/2022 1:53 PM Migraine Head ache Results for this TRIGEM NIDHI CDT procedure are i n the results section. documented in this encounter Results HI CHEMODENERV FACIAL TRIGEM NIDHI (05/18/2022 1:53 PM [...] Needle length: 0.5 in Injection site details Financial Service Rep / Procerus muscle(s): 5 units into the left office cleaner muscle, 5 units into the right office cleaner muscle and 5 units into the procerus [...] documented as of this encounter Care Teams Steward/Stewardess Second Class Relationship Specialty Start Date End Date Annemarie Montiel M.D. PCP - General 04/19/17 [address] [place] [phone] documented as of this encounter
--- OUTSIDE RECORDS SUMMARY | 2022-09-05 06:07 | XMS_ITS | Encounter Summary ---
:1985 Author Organization [facility] Address [address] [place] [address] Care Team Providers Name Role Phone Annemarie Montiel M.D. Primary Care Provider [phone] Reason for Visit Reason Comments Botulinum Toxin Injection Outpatient (Routine) - Authorized Specialty Diagnoses / Procedures Referred By Contact Refer red To Contact Diagnoses Migraine Headache Marina Winter M.D., [facility] Procedures Botox for Chronic Migraine M.P.H. [address] [phone] Referral ID Status Reason Start Date Expiration Date Visits V isits Requested Authorized [id number] Authorized 10/06/2020 10/06/2022 4 4 Encounter Details Date Type Department Care Team Description 02/16/2022 Procedure visit Department of Neurology Marina Winter, Migraine Headache in [facility] jeevan Jaramillo, M.P.H. [address] [facility] [address] [place] [phone] Social History Tobacco Use Types Packs/Day Years [...] How often do you attend pentecostal or cheondoism Never 07/04/2019 services? 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 Prior preventative medication trials: amitriptyline and topiramate Headache frequency Headache days per month: 7 days Severe headache days per month: 2 days documented in this encounter Plan of Treatment Upcoming Encounters Date Type Specialty Care Team Description 10/19/2022 Procedure visit Neurology Marina Winter M.D., M.P.[facility] [address] [place] [phone] (Wo rk) Scheduled Procedures Name Priority Associated Diagnoses Date/Time LIFT THIGH Excessive And Redundant Skin And Subcutaneous Tissue documented as of this encounter Procedures Procedure Name Priority Date/Time Associated Comments Diagnosis RI CHEMODENERV FACIAL Routine 02/16/2022 1:47 PM Migraine Head ache Results for this TRIGEM NIDHI CDT procedure are i n the results section. documented in this encounter Results RI CHEMODENERV FACIAL TRIGEM NIDHI (02/16/2022 1:47 PM [...] Needle length: 0.5 in Injection site details Tester Wafer Substrate / Procerus muscle(s): 5 units into the left lead cook muscle, 5 units into the right lead cook muscle and 5 units into the procerus [...] documented as of this encounter Care Teams River Tester Relationship Specialty Start Date End Date Annemarie Montiel M.D. PCP - General 04/19/17 [address] [place] [phone] documented as of this encounter
--- OUTSIDE RECORDS SUMMARY | 2022-09-05 06:07 | XMS_ITS | Encounter Summary ---
:1985 Author Organization [facility] Address [address] [place] [address] Care Team Providers Name Role Phone Annemarie Montiel M.D. Primary Care Provider [phone] Reason for Visit Appointment Request (Routine) - Closed Specialty Diagnoses / Procedures Referred By Contact Refer red To Contact Aesthetic Medicine Diagnoses Cosmetic Surgery For Unacceptable Appearance and Surgery Referral ID Status Reason Start Date Expiration Date Visits Requ ested Visits Authorized [id number] Closed 01/30/2022 01/30/2023 1 1 Encounter Details Date Type Department Care Team Description 04/11/2022 Comprehensive Visit Division of Plastic [place] Excessive And Surgery in , [place], Redundant Skin And [place], [place] M.B.B.S. Subcutaneous Tissue [address] [facility] (Primary Dx) [place] [phone] [phone] Social History Tobacco Use Types Packs/Day Years [...] How often do you attend spiritism or latter-day Never 07/04/2019 services? 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 [address], [place] [phone] (Wo rk) Scheduled Procedures [...] documented as of this encounter Care Teams Dental Chairside Assistant Relationship Specialty Start Date End Date Annemarie Montiel M.D. PCP - General 04/19/[address] [place] [phone] documented as of this encounter
--- OUTSIDE RECORDS SUMMARY | 2022-09-05 06:07 | XMS_ITS | Encounter Summary ---
:1985 Author Organization [facility] Address [address] [place] [address] Care Team Providers Name Role Phone Annemarie Montiel M.D. Primary Care Provider [phone] Encounter Details Date Type Department Care [...] How often do you attend worship or christianity Never 07/04/2019 services? 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 [address] [phone] (Wo rk) Scheduled [...] Organization Address City/State/ZIP Code Phon e Number [facility] [facility] NA documented in this encounter Visit Diagnoses Not on filedocumented in this encounter Additional Health Concerns Assessment Noted Time PHQ-9 Depression Total Score: 12 06/10/2020 1:20 PM CD T documented as of this encounter Care Teams Right Of Way Clearer Relationship Specialty Start Date End Date Annemarie Montiel M.D. PCP - General 04/19/[address], [place] [address] documented as of this encounter
--- OUTSIDE RECORDS SUMMARY | 2022-09-05 06:07 | XMS_ITS | Clinical Summary ---
:1985 Author Organization [facility] Address [address] [place] [address] Care Team Providers Name Role Phone Annemarie Montiel M.D. Primary Care Provider [phone] Source Comments Patient records contain information from all sites at [facility]. For routine questions regarding patient records, call [phone] during business hours, M-F 8:00 AM - 5:00 PM Central Time. Record requests for emergency care only can be directed to [phone] at any time.[facility] Allergies Active Allergy Reactions Severity [...] BY MOUTH ONCE DAILY FOR 5 DAYS ngnomcysefdn-Xm-ozgr-min Take 1 tablet by 0 Active erals [...] 0 07/28/2020 Active mg 24 hr tablet oxfyhjq-Tn-nsus-FA Take 1 tablet by mouth daily. 0 Active (VINATE ONE) 60 mg iron-1 mg per tablet Active Problems Problem Noted Date Excessive And Redundant Skin And Subcutaneous Tissue 0 04/11/2022 Overview: Added automatically from request for [facility] [id number] Panniculitis 11/07/2019 Overview: Added automatically from [facility] for [facility] [id number] Hypokalemia 11/25/2018 Last Assessment & Plan: Formatting [...] 04/23/2013 03/27/2018 Depressive Disorder 12/10/2009 03/27/2018 Endometriosis Of Pelvic Peritoneum Unspecified 04/20/2007 03/27/2018 Encounters Date Type Specialty Care Team Description 08/08/2022 Orders Only Annemarie Montiel M.D. 07/24/2022 Orders Only Annemarie Montiel M.D. 06/13/2022 Clinical Communication Plastic Surgery Pancho, Insurance denial Araseli SparksB.S. from Last 3 Months Immunizations Name Administration Dates Next Due DT, Pediatric 04/19/1999 HepB (discontinued) adolescent/high 03/10/2004, 10/15/2003, 09/17/2003 risk infant Influenza Split 09/07/2014 Influenza TIV (IM) 08/16/2012 [...] How often do you attend adventism or mormonism Never 07/04/2019 services? Do you [...] at Date Recorded Female 10/16/2018 10:53 AM SODA FOUNTAIN CLERK Last Filed Vital Signs Vital Sign Reading Time Taken Comments Blood Pressure 98/61 10/06/2020 9:17 AM SODA FOUNTAIN CLERK Pulse 82 10/06/2020 9:17 AM SODA FOUNTAIN CLERK Temperature 37 ??C (98.6 ??F) 12/17/2019 8:30 AM SODA FOUNTAIN CLERK Respiratory Rate 16 12/17/2019 8:30 AM SODA FOUNTAIN CLERK Oxygen Saturation 98% 12/17/2019 8:30 AM SODA FOUNTAIN CLERK Inhaled Oxygen Concentration - - Weight 75 kg (165 lb 5.5 oz) 10/06/2020 9:17 AM SODA FOUNTAIN CLERK Height 162.5 cm (5' 3.98) 10/06/2020 9:17 AM SODA FOUNTAIN CLERK Body Mass Index 28.4 10/06/2020 9:17 AM SODA FOUNTAIN CLERK Plan of Treatment Upcoming Encounters Date Type Specialty Care Team Description 10/19/2022 Procedure visit Neurology Marina Winter M.D., M.P.H. [address] [place] [phone] (Wo rk) Scheduled Procedures Name Priority [...] DTaP,Tdap,and Td Vaccines 02/26/2023 02/26/2013, 01/17/2009 , (5 - Td or Tdap) 04/19/1999, Additional history exists Hepatitis B Vaccines Completed 03/10/2004, 10/15/2003, 09/17/2003 Hepatitis C Screening Completed 10/18/2015 HIV Screening Completed 11/20/2018, 04/07/2016, 10/18/2015, Additional history exists Pneumococcal vaccine (0-64 Aged Out No lo nger eligible years) based on patient 's age to complete this topic Medical Devices Implanted Type Area Customs Investigator Device Shelf Model / Identifier Expiration Serial / Date Lot Conversions - Default Historical Implant Device Hardware Mouth Implanted: 11/06/2014 (Quantity not on file) e.g. pins/screws/ rods Description: Body Location - Mouth. both sides of jaw. Device Status Text - Hardware. Clp Hrzn Ti 6 Clp Sm Red - [id number] Hardware e.g. N/A: Teleflex [id number] 03/25/2024 [id number] / Implanted: Qty: 1 on 12/16/2019 by Clare Arizmendi M.B.BRodrigoSRodrigo at [facility] pins/screws/rods [employer] / [id number] Insurance Payer Benefit Plan Subscriber ID Effective Dates Phone Address Type / Group UCARE [place]ARE [place] CARE [id number] 2021-Presen [phone] [id number] Medicaid HMO t 5 [place] [address] Advance Directives For more information, please contact: [phone] Latest Code Status on File Code Status Date Activated Date Inactivated Comments Full Code 12/16/2019 3:26 PM 12/17/2019 12:11 PM Question Answer Comments Full Code: Discussed Care Teams Weight Calculator Relationship Specialty Start Date End Date Annemarie Montiel M.D. PCP - General 04/19/[address] [phone]
--- OUTSIDE RECORDS SUMMARY | 2022-09-05 06:07 | XMS_ITS | Encounter Summary ---
:1985 Author Organization [facility] Address [address] [place] [address] Care Team Providers Name Role Phone Annemarie Montiel M.D. Primary Care Provider [phone] Encounter Details Date Type Department Care Team Description 02/04/2021 Orders Only [facility] PCP [facility] Sa solomon Jacobs M.D. [address] [place], [place] [phone] (Wo rk) Social History [...] How often do you attend zoroastrianism or quaker Never 07/04/2019 services? 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 [address] [place], [place] [phone] (Wo rk) Scheduled Procedures Name Priority Associated Diagnoses Date/Time LIFT THIGH Excessive And Redundant Skin And Subcutaneous Tissue documented as of this encounter Visit Diagnoses Not on filedocumented in this encounter Additional Health Concerns Assessment Noted Time PHQ-9 Depression Total Score: 12 06/10/2020 1:20 PM CD T documented as of this encounter Care Teams Machine Operator Assistant Relationship Specialty Start Date End Date Annemarie Montiel M.D. PCP - General 04/19/[address] [place] [address] documented as of this encounter
--- OUTSIDE RECORDS SUMMARY | 2022-09-05 06:07 | XMS_ITS | Encounter Summary ---
:1985 Author Organization [facility] Address [address] [place] [address] Care Team Providers Name Role Phone Annemarie Montiel M.D. Primary Care Provider [phone] Encounter Details Date Type Department Care Team Description 05/16/2022 Clinical Communication Department of Neurology Marina Winter, in [facility] jeevan Jaramillo, M.P.H. [address] [place] [phone] Social History Tobacco Use Types Packs/Day Years [...] How often do you attend mu-ism or adventism Never 07/04/2019 services? 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 [address] [place], [place] [phone] (Wo rk) Scheduled Procedures Name Priority Associated Diagnoses Date/Time LIFT THIGH Excessive And Redundant Skin And Subcutaneous Tissue documented as of this encounter Visit Diagnoses Not on filedocumented in this encounter Additional Health Concerns Assessment Noted Time PHQ-9 Depression Total Score: 12 06/10/2020 1:20 PM CD T documented as of this encounter Care Teams Medical Underwriter Relationship Specialty Start Date End Date Annemarie Montiel M.D. PCP - General 04/19/[address] [place] [address] documented as of this encounter
--- OUTSIDE RECORDS SUMMARY | 2022-09-05 06:07 | XMS_ITS | Encounter Summary ---
:1985 Author Organization [facility] Address [address] [place] [address] Care Team Providers Name Role Phone Annemarie Montiel M.D. Primary Care Provider [phone] Reason for Referral Specialty Diagnoses / Procedures Referred By Contact Refer red To Contact Annemarie Montiel M.D. [facility] [address], [place] [address] Referral ID Status Reason Start Date Expiration Date Visits Requ ested Visits Authorized OR C DEVELOPER Encounter Details Date Type Department Care Team Description 10/09/2021 [facility] Daniel Montiel M.D. [address], [place] [phone] (Wo rk) Social History [...] How often do you attend cheondoism or baptism Never 07/04/2019 services? 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 [address], [place] [phone] (Wo rk) Scheduled [...] documented as of this encounter Care Teams Motel Manager Relationship Specialty Start Date End Date Annemarie Montiel M.D. PCP - General 04/19/17 [address] [place] [phone] documented as of this encounter
--- OUTSIDE RECORDS SUMMARY | 2022-09-05 06:07 | XMS_ITS | Encounter Summary ---
:1985 Author Organization [facility] Address [address] [place] [address] Care Team Providers Name Role Phone Annemarie Montiel M.D. Primary Care Provider [phone] Reason for Referral Specialty Diagnoses / Procedures Referred By Contact Refer red To Contact Annemarie Montiel M.D. [facility] [address], [place] [address] Referral ID Status Reason Start Date Expiration Date Visits Requ ested Visits Authorized Encounter Details Date Type Department Care Team Description 07/24/2022 Orders Only [facility] Daniel Montiel M.D. [address], [place] [phone] (Wo rk) Social History [...] How often do you attend methodist or roman catholic Never 07/04/2019 services? 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 [address], [place] [phone] (Wo rk) Scheduled Procedures [...] Depression Total Score: 12 06/10/2020 1:20 PM C DT documented as of this encounter Care Teams Bricklayer Supervisor Relationship Specialty Start Date End Date Annemarie Montiel M.D. PCP - General 04/19/17 [address], [place] [address] documented as of this encounter
--- OUTSIDE RECORDS SUMMARY | 2022-09-05 06:07 | XMS_ITS | Encounter Summary ---
:1985 Author Organization [facility] Address [address] [place] [address] Care Team Providers Name Role Phone Annemarie Montiel M.D. Primary Care Provider [phone] Encounter Details Date Type Department Care [...] How often do you attend taoist or lutheran Never 07/04/2019 services? 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 [address] [phone] (Wo rk) Scheduled [...] documented as of this encounter Care Teams Land Planner Relationship Specialty Start Date End Date Annemarie Montiel M.D. PCP - General 04/[address], [place] [address] documented as of this encounter
--- OUTSIDE RECORDS SUMMARY | 2022-09-05 06:08 | XMS_ITS | Encounter Summary ---
:1985 Author Organization [facility] Address [address] [place] [address] Care Team Providers Name Role Phone Annemarie Montiel M.D. Primary Care Provider Reason for Referral Outpatient (Routine) - Closed Specialty Diagnoses / Procedures Referred By Contact Refer red To Contact Plastic Surgery Leyla River P.A.-C., [facility] [address] [place], [place] [address] Referral ID Status Reason Start Date Expiration Date Visits Requ ested Visits Authorized [id number] Closed 12/30/2019 12/29/2020 1 1 ENTICE PATTERN MAKER Outpatient (Routine) - Closed Specialty Diagnoses / Procedures Referred By Contact Refer red To Contact Plastic Surgery Leyla River P.A.-C., [facility] [address] [place], [place] [address] Referral ID Status Reason Start Date Expiration Date Visits Requ ested Visits Authorized [id number] Closed 12/30/2019 12/29/2020 1 1 ENTICE PATTERN MAKER Reason for Visit Outpatient (Routine) - Closed Specialty Diagnoses / Procedures Referred By Contact Refer red To Contact Plastic Surgery [facility] [address] [place], [place] [phone] Referral ID Status Reason Start Date Expiration Date Visits Requ ested Visits Authorized [id number] Closed 12/12/2019 12/11/2020 1 1 Encounter Details Date Type Department Care Team Description 12/30/2019 Office Visit Division of Plastic Leyla River Fol [facility] Up Examination Surgery in [place], P.Fabricio.-Nadya, P .A. Postoperative Visit [place] [address] Denise Dye (Primary Dx) [address] [place] [phone] Social History Tobacco Use Types Packs/Day Years [...] How often do you attend nondenominational or muslim Never 07/04/2019 services? 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 Gomez. ENTICE PATTERN MAKER documented in this encounter Plan of Treatment Upcoming Encounters Date Type Specialty Care Team Description 10/19/2022 Procedure visit Neurology Marina Winter M.D., M.P.H. [address] [place], [place] [phone] (Wo rk) Scheduled Procedures [...] documented as of this encounter Care Teams Cloud Automation Tester Relationship Specialty Start Date End Date Annemarie Motniel M.D. PCP - General 04/19/[address] [place] [address] documented as of this encounter
--- OUTSIDE RECORDS SUMMARY | 2022-09-05 06:08 | XMS_ITS | Encounter Summary ---
:1985 Author Organization [facility] Address [address] [place] [address] Care Team Providers Name Role Phone Annemarie Montiel M.D. Primary Care Provider [phone] Reason for Visit Reason Comments Depression Pre-Rooming PHQ-9 Encounter Details Date Type Department Care Team Description 06/10/2020 Clinical Department of Annemarie Montiel Depression Communication Family MedicineNadia M.D. (Pre-Rooming [facility], [address] PHQ-9) in [facility] [phone] [place], [place] (Work) [phone] Social History Tobacco Use [...] How often do you attend hoahaoism or sikh Never 07/04/2019 services? 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 Thank you. Telephone Encounter - Hodan Ortiz L.I.C.SBrook. - 06/10/2020 3:[address] Montiel Met with patient 8-6. Provided patient with techniques to assist with symptoms of anxiety. 1. Coronavirus and Anxiety 2. Decision Worry Tree 3. Reviewed deep breathing 4. Guided imagery Also provided her with community resources as she shared with this telegraphic typewriter operator there was a reduction in her EBT (SNAP) benefits. 1. School lunches are still being provided, 2. 8-20 [employer] will be in [place] to provide dairy, produce and meat. (no [...] Neurology Marina Winter M.D., M.P.H. [address] [phone] (Wo rk) Scheduled Procedures [...] documented as of this encounter Care Teams Anatomical Embalmer Relationship Specialty Start Date End Date Annemarie Montiel M.D. PCP - General 04/19/[address] [phone] documented as of this encounter
--- OUTSIDE RECORDS SUMMARY | 2022-09-05 06:08 | XMS_ITS | Encounter Summary ---
:1985 Author Organization [facility] Address [address] [place] [address] Care Team Providers Name Role Phone Annemarie Montiel M.D. Primary Care Provider [phone] Reason for Referral Outpatient (Routine) - Authorized Specialty Diagnoses / Procedures Referred By Contact Refer red To Contact Diagnoses Migraine Headache Marina Winter M.D., [facility] Procedures Botox for Chronic Migraine M.P.H. [address] [place] [address] Referral ID Status Reason Start Date Expiration Date Visits V isits Requested Authorized [id number] Authorized 10/06/2020 10/06/2022 4 4 ENRICHMENT SPECIALIST Reason for Visit Reason Comments Migraine Ref. [facility] Appointment Request (Routine) - Closed Specialty Diagnoses / Procedures Referred By Contact Refer red To Contact Neurology Referral ID Status Reason Start Date Expiration Date Visits Requ ested Visits Authorized [id number] Closed 09/09/2020 09/09/2021 1 1 Encounter Details Date Type Department Care Team Description 10/06/2020 Comprehensive Visit Department of Marina Winter Migrwm e Headache Neurology in [place], (Primary Dx) [place], [place] M.P.H. [address] [facility] [address] [place], [place] [phone] [address] Social History Tobacco Use Types Packs/Day [...] How often do you attend sabianist or taoist Never 07/04/2019 services? 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 - 10/06/2020 9:30 AM CST SUBJECTIVE CHIEF COMPLAINT / REASON FOR VISIT Maria Alejandra Gomez is a 35 y.o. female who presents for evaluation of Migraine (Ref. [facility]). HISTORY OF PRESENT ILLNESS This 35-year-old [...] PANNICULECTOMY N/A 12/16/2019 Procedure: PANNICULECTOMY, Possible Lily heart; Surgeon: Clare Deleon M.B.B.S.; Location: [facility] ROM OR ??? TONSILLECTOMY ??? TONSILLECTOMY AND [...] as needed (sleep)., Disp: , Rfl: ??? afrelsszzsra-Fs-pmfq-minerals (MULTIPLE VITAMIN, WOMENS) tablet, Take 1 tablet [...] Once a week Gets together: Never Attends taoist service: Never Active member of club or [...] Alert and oriented x 4. CRANIAL NERVES: auto body estimator II-XII intact and symmetric. MOTOR: Full strength [...] was 50 minutes. Marina Winter M.D., M.P.H. ENRICHMENT SPECIALIST documented in this encounter Plan of Treatment Upcoming Encounters Date Type Specialty Care Team Description 10/19/2022 Procedure visit Neurology Marina Winter M.D., M.P.H. [address] [phone] ( rk) Scheduled Orders Name Type Priority Associated [...] Needle length: 0.5 in Injection site details Dairy And Food Laboratory Assistant / Procerus muscle(s): 5 units into the left pellet machine operator muscle, 5 units into the right pellet machine operator muscle and 5 units into the [...] green party. ?? Prior preventative medication trials: to [...] Needle length: 0.5 in Injection site details Dairy And Food Laboratory Assistant / Procerus muscle(s): 5 units into the left pellet machine operator muscle, 5 units into the right pellet machine operator muscle and 5 units into the [...] documented as of this encounter Care Teams Cath Lab Nurse Relationship Specialty Start Date End Date Annemarie Montiel M.D. PCP - General 04/19/17 [address] [place] [address] documented as of this encounter
--- OUTSIDE RECORDS SUMMARY | 2022-09-05 06:08 | XMS_ITS | Encounter Summary ---
:1985 Author Organization [facility] Address [address] [place] [address] Care Team Providers Name Role Phone Annemarie Montiel M.D. Primary Care Provider [phone] Encounter Details Date Type Department Care Team Description 02/25/2020 Clinical Communication Division of Plastic Liam white, Surgery in [place], Surendra SparksB.S. [place] [address] [facility] [address] [place] [phone] Social History Tobacco Use Types Packs/Day Years [...] How often do you attend restoration or synagogue Never 07/04/2019 services? 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 [address] [phone] (Wo rk) Scheduled Procedures Name Priority Associated Diagnoses Date/Time LIFT THIGH Excessive And Redundant Skin And Subcutaneous Tissue documented as of this encounter Visit Diagnoses Not on filedocumented in this encounter Additional Health Concerns Assessment Noted Time PHQ-9 Depression Total Score: 15 02/20/2020 12:57 PM C DT documented as of this encounter Care Teams Title Clerk Automobile Relationship Specialty Start Date End Date Annemarie Montiel M.D. PCP - General 04/19/[address] [phone] documented as of this encounter
--- OUTSIDE RECORDS SUMMARY | 2022-09-05 06:08 | XMS_ITS | Encounter Summary ---
:1985 Author Organization [facility] Address [address] [place] [address] Care Team Providers Name Role Phone Annemarie [...] How often do you attend worship or mormonism Never 07/04/2019 services? Do you [...] at Date Recorded Female 10/16/2018 10:53 AM PICC NURSE documented as of this encounter Plan of Treatment Upcoming Encounters Date Type Specialty Care Team Description 10/19/2022 Procedure visit Neurology Marina Winter M.D., M.P.H. [address] [phone] (Wo rk) Scheduled Procedures Name Priority Associated Diagnoses Date/Time LIFT THIGH Excessive And Redundant Skin And Subcutaneous Tissue documented as of this encounter Procedures Procedure Name Priority Date/Time Associated Diagnosis Comme nts PLASTIC AND RECON Routine 12/16/2019 12:00 PM Res ults for this SURGERY IMAGE EXAM PICC NURSE procedure are in the results section. documented in this encounter Results Specimen-Plastic And Recon Surgery Image Exam (12/16/2019 12:00 PM PICC NURSE) Specimen (Source) Anatomical Location Collection Method / Collectio n Time Received Time / Laterality Volume Narrative IIMS - 12/17/2019 11:09 AM PICC NURSE This order has been created and auto-finalized [...] documented as of this encounter Care Teams Seed Yeast Operator Relationship Specialty Start Date End Date Annemarie Montiel M.D. PCP - General 04/19/17 [address] [facility] [place] [address] documented as of this encounter
--- OUTSIDE RECORDS SUMMARY | 2022-09-05 06:08 | XMS_ITS | Encounter Summary ---
:[address] [facility] Address [address] [place] [address] Care Team Providers Name Role Phone Annemarie Montiel M.D. Primary Care Provider [phone] Encounter Details Date Type Department Care Team Description 09/08/2020 Clinical Communication Department of Maisha Song, MedicinePorfirio M.D. [facility], in [facility] [address] [place], [place] [address] [place] [address] [place], [place] [phone] (Wo rk) [address] [phone] Social History Tobacco Use Types Packs/Day Years [...] often do you attend latter day or synagogue Never 07/04/2019 services? Do you [...] PROOFER APPRENTICE documented as of this encounter Miscellaneous Notes Telephone Encounter - Nuris Cloud L.PRodrigoN. - 09/08/2020 4:46 PM PROOFER APPRENTICE SUBJECTIVE CHIEF COMPLAINT / REASON FOR CALL No chief complaint on file. Information Discussed Spoke with patient and received verbal permission to fax copy of her last appointment to [facility]. Patient was informed that she need [...] yes The following references were used: none FER APPRENTICE documented in this encounter Plan of Treatment Upcoming Encounters Date Type Specialty Care Team Description 10/19/2022 Procedure visit Neurology Marina Winter M.D., M.P.H. [address] [place] [phone] (Wo rk) Scheduled Procedures Name Priority Associated Diagnoses Date/Time LIFT THIGH Excessive And Redundant Skin And Subcutaneous Tissue documented as of this encounter Visit Diagnoses Not on filedocumented in this encounter Additional Health Concerns Assessment Noted Time PHQ-9 Depression Total Score: 12 06/10/2020 1:20 PM CD T documented as of this encounter Care Teams Warehouse Shipping Clerk Relationship Specialty Start Date End Date Annemarie Montiel M.D. PCP - General 04/19/17 [address] [place] [phone] documented as of this encounter
--- OUTSIDE RECORDS SUMMARY | 2022-09-05 06:08 | XMS_ITS | Encounter Summary ---
:1985 Author Organization [facility] Address [address] [place] [address] Care Team Providers Name Role Phone Annemarie Montiel M.D. Primary Care Provider [phone] Encounter Details Date Type Department Care [...] How often do you attend mormon or roman catholic Never 07/04/2019 services? 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 [address] [phone] (Wo rk) Scheduled Procedures Name Priority Associated Diagnoses Date/Time LIFT THIGH Excessive And Redundant Skin And Subcutaneous Tissue documented as of this encounter Procedures Procedure Name Priority Date/Time Associated Diagnosis Comme nts PLASTIC AND RECON Routine 12/16/2019 12:05 PM Res ults for this SURGERY IMAGE EXAM ELECTRICAL ENGINEERING DIRECTOR procedure are in the results section. documented in this encounter Results Specimen-Plastic And Recon Surgery Image Exam (12/16/2019 12:05 PM ELECTRICAL ENGINEERING DIRECTOR) Specimen (Source) Anatomical Location Collection Method / Collectio n Time Received Time / Laterality Volume Narrative IIMS - 12/17/2019 4:33 PM ELECTRICAL ENGINEERING DIRECTOR This order has been created and auto-finalized [...] documented as of this encounter Care Teams Book Repairer Relationship Specialty Start Date End Date Annemarie Montiel M.D. PCP - General 04/19/17 [address] [place] [address] documented as of this encounter
--- OUTSIDE RECORDS SUMMARY | 2022-09-05 06:08 | XMS_ITS | Encounter Summary ---
:1985 Author Organization [facility] Address [address] [place] [address] Care Team Providers Name Role Phone Annemarie Montiel M.D. Primary Care Provider [phone] Encounter Details Date Type Department Care Team Description 04/23/2020 Orders Only Department of Annemarie Song, Migraine Headache MedicinePorfirio M.D. (Primary Dx) Clinic, in [facility] [address] [place], [place] [address] [place], [place] [phone] (Wo rk) [address] [phone] Social History Tobacco Use Types Packs/Day Years [...] How often do you attend yazidi or rastafarian Never 07/04/2019 services? 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 [address] [place], [place] [phone] (Wo rk) Scheduled Procedures Name Priority Associated Diagnoses Date/Time LIFT THIGH Excessive And Redundant Skin And Subcutaneous Tissue documented as of this encounter Visit Diagnoses Diagnosis Migraine Headache - Primary documented in this encounter Additional Health Concerns Assessment Noted Time PHQ-9 Depression Total Score: 15 2020 3:09 PM CD T documented as of this encounter Care Teams Nipple Threader Relationship Specialty Start Date End Date Annemarie Montiel M.D. PCP - General 04/19/[address] [phone] documented as of this encounter
--- OUTSIDE RECORDS SUMMARY | 2022-09-05 06:08 | XMS_ITS | Encounter Summary ---
:1985 Author Organization [facility] Address [address] [place] [address] Care Team Providers Name Role Phone Annemarie Montiel M.D. Primary Care Provider [phone] Encounter Details Date Type Department Care [...] How often do you attend sabianist or buddhist Never 07/04/2019 services? Do you [...] at Date Recorded Female 10/16/2018 10:53 AM STRATEGIC PARTNERSHIP REPRESENTATIVE documented as of this encounter Plan of Treatment Upcoming Encounters Date Type Specialty Care Team Description 10/19/2022 Procedure visit Neurology Marina Winter M.D., M.P.H. [address] [phone] (Wo rk) Scheduled Procedures Name Priority Associated Diagnoses Date/Time LIFT THIGH Excessive And Redundant Skin And Subcutaneous Tissue documented as of this encounter Procedures Procedure Name Priority Date/Time Associated Diagnosis Comme nts PLASTIC AND RECON Routine 12/24/2019 12:00 PM Res ults for this SURGERY IMAGE EXAM STRATEGIC PARTNERSHIP REPRESENTATIVE procedure are in the results section. documented in this encounter Results Abdomen Panniculectomy-Plastic And Recon Surgery Image Exam (12/24/2019 12:00 PM STRATEGIC PARTNERSHIP REPRESENTATIVE) Specimen (Source) Anatomical Collection Method Collection Time Re ceived Time Location / / Volume Laterality 12/24/2019 12:00 PM STRATEGIC PARTNERSHIP REPRESENTATIVE Narrative IIMS - 12/24/2019 3:48 PM STRATEGIC PARTNERSHIP REPRESENTATIVE This order has been created and auto-finalized [...] documented as of this encounter Care Teams Tyre Builder Relationship Specialty Start Date End Date Annemarie Montiel M.D. PCP - General 04/19/17 [address] [place] [address] documented as of this encounter
--- OUTSIDE RECORDS SUMMARY | 2022-09-05 06:08 | XMS_ITS | Encounter Summary ---
:1985 Author Organization [facility] Address [address] [place] [address] Care Team Providers Name Role Phone Annemarie Montiel M.D. Primary Care Provider [phone] Reason for Visit Auth/Cert Specialty Diagnoses / Procedures Referred By Contact Refer red To Contact Diagnoses Panniculitis Bariatric surgery status Panniculitis [M79.3] Procedures WV EXCISN EXCESS SKIN/TISS ABD PANNICULECTOMY Referral ID Status Reason Start Date Expiration Date Visits Requ ested Visits Authorized [id number] 1 1 Encounter Details Date Type Department Care Team Description 12/16/2019 Anesthesia Event [facility] MAIN OR Harris Pop M.D. [address] [place] [phone] [address] [facility] Luciano Reyes M.D. [address] [place] [phone] [place] [address] Anesthesia Record Procedure Summary [...] h andoff to the receiving staff during [facility] we 1. Identified the patient 2. Ident [...] Drain 12/16/19; 1301; 1; 12/16/19 1301 by Left, Anterior, Brad Boyd O, Lateral; Leg; Bulb; 15 R.N. Fr. [...] 12/16/19 1411 b y 12/16/19; Placement Cass Hudson, Carol NEAL i, Hipolito T, Time: 1103 (created via CANE STRIPPER R.N. procedure documentation); Mask Ventilation: Easy mask; [...] 141 8 by Abdomen; Bilateral; Brad Boyd, [facility] 07/26/21 (Removed by Bashir Sandra background completion Automated Batch Job utility); 1418 (Removed by background completion utility) Closed/Suction Drain 12/16/19; 1257; 1; 12/16/19 1257 by 0 1144 by Right, Anterior, Brad Boyd, Nidia Noel R, Lateral; Thigh; Bulb; R.N. L.P.N. 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 - 12/16/2019 2:54 PM CST Patient: Maria Alejandra Gomez Procedure Summary Date: 12/16/19 Room / Location: [place] [address] ROMB 01 1575 / [facility] in [place], [place] Anesthesia Start: 1044 Anesthesia Stop: 1425 Procedure: PANNICULECTOMY, Possible Lily de lis. (N/A ) Diagnosis: Panniculitis (Panniculitis [M79.3].) Provider: Clare Deleon M.BRodrigoBRodrigoSRodrigo Responsible Provider: Harris Pop M.D. Anesthesia Type: [...] by: Cassius Mosher M.D. 12/16/19 2:55 PM NUT GRINDER GRINDER Anesthesia Procedure Notes - Hipolito Jones R.N., REGINA - 12/16/2019 12:43 PM CSTAssociated Order(s): Airway Airway Date/Time: 12/16/2019 11:04 AM Performed by: Cass Fuentes APRN, CANE STRIPPER Authorized by: Harris Pop M.D. Patient location [...] Procedure outcome: successful Airway event: no complications GRINDER Anesthesia Preprocedure Evaluation - Harris Pop M.D. - 12/16/2019 10:59 AM CST Preprocedure Anesthesia & H&P Assessment Procedure Summary Anesthesia Start Date/Time: 12/16/19 1044 Procedure: PANNICULECTOMY, Possible Lily de lis. (N/A ) Diagnosis: Panniculitis [M79.3] Pre-op diagnosis: Panniculitis [M79.3]. Location: [address] / [facility] in [place], [place] Provider: Clare Deleon M.B.B.S. Pertinent components [...] with patient /legal guardian or through an internet merchant. The use of blood products not discussed GRINDER documented in this encounter Plan of Treatment Upcoming Encounters Date Type Specialty Care Team Description 10/19/2022 Procedure visit Neurology Marina Winter M.D., M.P.H. [address] [place] [phone] (Wo rk) Scheduled Procedures Name Priority Associated Diagnoses Date/Time LIFT THIGH Excessive And Redundant Skin And Subcutaneous Tissue documented as of this encounter Procedures Procedure Name Priority Date/Time Associated Comments Diagnosis LDA ANE ENDOTRACHEAL Routine 12/16/2019 12:43 Res ults for this AIRWAY PM NUT GRINDER procedure are i n the results section. documented in this encounter Results LDA ANE ENDOTRACHEAL AIRWAY (12/16/2019 12:43 PM NUT GRINDER) Narrative Hipolito Jones R.N., CCRN - 0 12:43 PM NUT GRINDER Hipolito Jones R.N., CCRN ? 12/16/2019 12:57 [...] injection 2,000 mg Given 12/16/2019 11:13 AM NUT GRINDER 2 g (ANCEF) 2,000 mg (rounded from [...] dexamethasone injection (DECADRON) Given 12/16/2019 11:18 AM NUT GRINDER 4 mg As needed, Starting on Sun12/16/19 at 1118, Anesthesia Intra-op droperidoL injection (INAPSINE) Given 12/16/2019 1:26 PM NUT GRINDER 0.625 mg intravenous, As needed, Starting on Sun12/16/19 at 1326, Anesthesia Intra-op ePHEDrine (PF) injection Given 12/16/2019 1:53 PM NUT GRINDER 5 mg intravenous, As needed, Starting on Sun12/16/19 at 1122, Anesthesia Intra-op Given 12/16/2019 1:34 PM NUT GRINDER 5 mg Given 12/16/2019 1:22 PM NUT GRINDER 5 mg fentaNYL injection (SUBLIMAZE) Given 12/16/2019 2:11 PM NUT GRINDER 50 mcg intravenous, As needed, Starting on Sun12/16/19 at 1113, Anesthesia Intra-op Given 12/16/2019 11:42 AM NUT GRINDER 50 mcg Given 12/16/2019 11:13 AM NUT GRINDER 50 mcg glycopyrrolate injection (ROBINUL) Given 12/16/2019 11:19 AM NUT GRINDER 0.2 mg intravenous, As needed, Starting on Sun12/16/19 at 1119, Anesthesia Intra-op HYDROmorphone (PF) injection (DILAUDID) Given 12/16/2019 2:11 PM NUT GRINDER 0.4 mg As needed, Starting on Sun12/16/19 at 1242, Anesthesia Intra-op Given 12/16/2019 1:08 PM NUT GRINDER 0.2 mg Given 12/16/2019 12:42 PM NUT GRINDER 0.4 mg ketamine injection (KETALAR) Given 12/16/2019 11:28 AM NUT GRINDER 20 mg As needed, Starting on Sun12/16/19 at 1128, Anesthesia Intra-op lactated ringers New Bag 12/16/2019 12:25 PM NUT GRINDER intravenous, Continuous Infusion: Per Instructions PRN, Starting on Sun12/16/19 at 1046, Anesthesia Intra-op New Bag 12/16/2019 10:46 AM NUT GRINDER lidocaine (PF) (cardiac) injection Given 12/16/2019 11:00 AM NUT GRINDER 60 mg intravenous, As needed, Starting on Sun12/16/19 at 1100, Anesthesia Intra-op ondansetron (PF) injection (ZOFRAN) Given 12/16/2019 1:26 PM NUT GRINDER 4 mg intravenous, As needed, Starting on Sun12/16/19 at 1326, Anesthesia Intra-op phenylephrine injection Given 12/16/2019 1:22 PM NUT GRINDER 50 mcg intravenous, As needed, Starting on Sun12/16/19 at 1119, Anesthesia Intra-op Given 12/16/2019 12:53 PM NUT GRINDER 50 mcg Given 12/16/2019 12:50 PM NUT GRINDER 50 mcg propofol 10 mg/mL infusion Rate/Dose 12/16/2019 1:28 30 mcg/kg/min 1 3.4 mL/hr (DIPRIVAN) Change PM NUT GRINDER intravenous, Continuous Infusion: Per Instructions PRN, Starting on Sun12/16/19 at 1104, Anesthesia Intra-op Rate/Dose Change 12/16/2019 12:47 PM NUT GRINDER 50 mcg/kg/min 22.4 mL/hr Rate/Dose Change 12/16/2019 12:38 PM NUT GRINDER 75 mcg/kg/min 33.5 mL/hr propofoL injection (DIPRIVAN) Given 12/16/2019 11:01 AM NUT GRINDER 75 mg intravenous, As needed, Starting on Sun12/16/19 at 1100, Anesthesia Intra-op Given 12/16/2019 11:00 AM NUT GRINDER 150 mg sugammadex injection (BRIDION) Given 12/16/2019 1:39 PM NUT GRINDER 150 mg As needed, Starting on Sun12/16/19 at 1339, Anesthesia Intra-op documented in this encounter Additional Health Concerns Assessment Noted Time PHQ-9 Depression Total Score: 19 10/09/2019 11:[address] documented as of this encounter Care Teams Rn Shift Mgr Relationship Specialty Start Date End Date Annemarie Montiel M.D. PCP - General 04/19/17 [address] [place] [phone] documented as of this encounter
--- OUTSIDE RECORDS SUMMARY | 2022-09-05 06:08 | XMS_ITS | Encounter Summary ---
:1985 Author Organization [facility] Address [address] [place] [address] Care Team Providers Name Role Phone Annemarie Montiel M.D. Primary Care Provider [phone] Reason for Visit Reason Comments Depression PHQ9 Encounter Details Date Type Department Care Team Description 07/22/2020 Clinical Department of Annemarie Montiel Depression (PHQ9) Communication Family MedicineNadia M.D. [facility], [address] in [facility] [address] [address] [place], [place] (Work) [phone] Social History Tobacco Use [...] How often do you attend buddhist or pentecostalism Never 07/04/2019 services? 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 documented in this encounter Plan of Treatment Upcoming Encounters Date Type Specialty Care Team Description 10/19/2022 Procedure visit Neurology Marina Winter M.D., M.P.H. [address] [place], [place] [phone] (Wo rk) Scheduled Procedures Name Priority Associated Diagnoses Date/Time LIFT THIGH Excessive And Redundant Skin And Subcutaneous Tissue documented as of this encounter Visit Diagnoses Not on filedocumented in this encounter Additional Health Concerns Assessment Noted Time PHQ-9 Depression Total Score: 12 06/10/2020 1:20 PM CD T documented as of this encounter Care Teams Maintenance Shop Clerk Relationship Specialty Start Date End Date Annemarie Montiel M.D. PCP - General 04/19/[address] [place] [phone] documented as of this encounter
--- OUTSIDE RECORDS SUMMARY | 2022-09-05 06:08 | XMS_ITS | Encounter Summary ---
:1985 Author Organization [facility] Address [address] [place] [address] Care Team Providers Name Role Phone Annemarie Montiel M.D. Primary Care Provider [phone] Reason for Visit Reason Onset Date Comments Depression 01/06/2020 PHQ9 Encounter Details Date Type Department Care Team Description 01/06/2020 Clinical Department of Annemarie Montiel Depression (PHQ9) Communication Family MedicineNadia M.D. [facility], [address] in [facility] [address] [address] [phone] [place], [place] (Work) [phone] Social History Tobacco Use [...] How often do you attend confucianist or jewish Never 07/04/2019 services? 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 [address] [place], [place] [phone] (Wo rk) Scheduled Procedures Name Priority Associated Diagnoses Date/Time LIFT THIGH Excessive And Redundant Skin And Subcutaneous Tissue documented as of this encounter Visit Diagnoses Not on filedocumented in this encounter Additional Health Concerns Assessment Noted Time PHQ-9 Depression Total Score: 19 10/09/2019 11:[address] documented as of this encounter Care Teams Street Sprinkler Relationship Specialty Start Date End Date Annemarie Montiel M.D. PCP - General 04/19/[address] [place] [phone] documented as of this encounter
--- OUTSIDE RECORDS SUMMARY | 2022-09-05 06:08 | XMS_ITS | Encounter Summary ---
:1985 Author Organization [facility] Address [address] [place] [address] Care Team Providers Name Role Phone Annemarie Montiel M.D. Primary Care Provider [phone] Reason for Referral Outpatient (Routine) - Closed Specialty Diagnoses / Procedures Referred By Contact Refer red To Contact Diagnoses Migraine Headache Marina Winter M.D., [facility] Procedures Botox for Chronic Migraine M.P.H. [address] [place] [address] Referral ID Status Reason Start Date Expiration Date Visits Requ ested Visits Authorized [id number] Closed 11/04/2020 11/04/2021 1 1 TRIC METER SETTER Encounter Details Date Type Department Care Team Description 11/04/2020 Orders Only Department of Neurology Marina Winter, Migraine Headache in [facility] jeevan Jaramillo, M.P.H. (Primary Dx) [address] [place] [address] [phone] Social History Tobacco Use Types Packs/Day Years [...] How often do you attend buddhist or yarsanism Never 07/04/2019 services? Do you belong to any clubs or organizations such as No 07/04/2019 buddhist groups, unions, fraTyro Payments or athletic groups, or school groups? 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 [address] [place], [place] [phone] (Wo rk) Scheduled Orders [...] documented as of this encounter Care Teams Blacksmith Helper Relationship Specialty Start Date End Date Annemarie Montiel M.D. PCP - General 04/19/17 [address] [address] documented as of this encounter
--- OUTSIDE RECORDS SUMMARY | 2022-09-05 06:08 | XMS_ITS | Encounter Summary ---
:1985 Author Organization [facility] Address [address] [place] [address] Care Team Providers Name Role Phone Annemarie Montiel M.D. Primary Care Provider [phone] Reason for Visit Reason Comments med review Outpatient (Routine) - Closed Specialty Diagnoses / Procedures Referred By Contact Refer red To Contact Video Medicine Diagnoses Anxiety Generalized Disorder Depression Major Recurrent (HCC) Annemarie Montiel M.D. [facility] [address] [place] [address] Referral ID Status Reason Start Date Expiration Date Visits Requ ested Visits Authorized [id number] Closed 03/22/2020 03/22/2021 1 1 Encounter Details Date Type Department Care Team Description 03/30/2020 Telemedicine Department of [facility] Annemarie Montiel, Anxiety Generalized Disorder; MedicinePorfirio M.D. Depression Major Recurrent (HCC) Clinic, in [facility] [place] [address] [address] [place], [place] [phone] (Wo rk) [address] [phone] Social History Tobacco Use Types Packs/Day Years [...] How often do you attend religious or congregational Never 07/04/2019 services? 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 in [facility] to the patient in her home. She [...] mouth at bedtime as needed (sleep). ??? ahhnirucndhi-Vq-xvus-minerals (MULTIPLE VITAMIN, WOMENS) tablet Take 1 tablet [...] N/A 12/16/2019 Procedure: PANNICULECTOMY, Possible Lily de micheal.; Surgeon: Clare Deleon M.B.B.S.; Location: RST ROMB OR ??? TONSILLECTOMY ??? [...] Nicki Montiel MD Department of Family Medicine [facility] Melvin documented in this encounter Plan of Treatment Upcoming Encounters Date Type Specialty Care Team Description 10/19/2022 Procedure visit Neurology Marina Winter M.D., M.P.H. [address] [place], [place] [phone] (Wo rk) Scheduled Procedures Name Priority Associated Diagnoses Date/Time LIFT THIGH Excessive And Redundant Skin And Subcutaneous Tissue documented as of this encounter Visit Diagnoses Diagnosis Anxiety Generalized Disorder Depression Major Recurrent (HCC) documented in this encounter Additional Health Concerns Assessment Noted Time PHQ-9 Depression Total Score: 2020 3:09 PM CD T documented as of this encounter Care Teams Treatment Plant Mechanic Relationship Specialty Start Date End Date Annemarie Montiel M.D. PCP - General 04/19/[address] [place] [address] documented as of this encounter
--- OUTSIDE RECORDS SUMMARY | 2022-09-05 06:08 | XMS_ITS | Encounter Summary ---
:1985 Author Organization [facility] Address [address] [place] [address] Care Team Providers Name Role Phone Annemarie Montiel M.D. Primary Care Provider [phone] Reason for Visit Auth/Cert Specialty Diagnoses / Procedures Referred By Contact Refer red To Contact Diagnoses Panniculitis Bariatric surgery status Panniculitis [M79.3] Procedures NC EXCISN EXCESS SKIN/TISS ABD PANNICULECTOMY Referral ID Status Reason Start Date Expiration Date Visits Requ ested Visits Authorized [id number] 1 1 Encounter Details Date Type Department Care Team Description 12/16/2019 - Hospital Encounter [facility] Pnacho Norrisleslie galeanojose alfredo (Primary 12/17/2019 Hospital, [facility] , [facility], ) [facility]. [place], Ninth Floor [address] [place] [address] [place] [phone] Social History Tobacco Use Types Packs/Day Years [...] How often do you attend buddhism or yazidism Never 07/04/2019 services? Do you [...] at Date Recorded Female 10/16/2018 10:53 AM FURNACE CHARGING MACHINE OPERATOR documented as of this encounter Last Filed Vital Signs Vital Sign Reading Time Taken Comments Blood Pressure 101/58 12/17/2019 8:30 AM FURNACE CHARGING MACHINE OPERATOR Pulse 78 12/17/2019 8:30 AM FURNACE CHARGING MACHINE OPERATOR Temperature 37 ??C (98.6 ??F) 12/17/2019 8:30 AM FURNACE CHARGING MACHINE OPERATOR Respiratory Rate 16 12/17/2019 8:30 AM FURNACE CHARGING MACHINE OPERATOR Oxygen Saturation 98% 12/17/2019 8:30 AM FURNACE CHARGING MACHINE OPERATOR Inhaled Oxygen Concentration - - Weight 74.5 kg (164 lb 3.9 oz) 12/16/2019 8:35 AM FURNACE CHARGING MACHINE OPERATOR Height 163.5 cm (5' 4.37) 12/16/2019 8:35 AM FURNACE CHARGING MACHINE OPERATOR Body Mass Index 27.87 12/16/2019 8:35 AM FURNACE CHARGING MACHINE OPERATOR documented in this encounter Discharge Summaries Lidia Irby Lexy, ÁNGEL, C.N.P. - 12/17/2019 8:46 AM CST DISCHARGE SUMMARY BRIEF OVERVIEW Discharge Provider: Clare Deleon M.B.B.S. Primary Care Providers: Annemarie Montiel M.D. (General) [address] [phone] Primary Care Provider Primary Care Provider Admission Date: 12/16/2019 Discharge Date: 12/17/2019 PRINCIPAL DIAGNOSIS Panniculitis SECONDARY DIAGNOSES Principal Problem: Panniculitis Resolved Problems: * No resolved hospital problems. * Surgery Information This Encounter Past Procedures (12/17/2018 to Today) Date Procedures Providers Location 12/16/2019 PANNICULECTOMY, Possible Lily de lis. Clare Deleon M.B.B.S.Boonipat, ThanGuy nguyen Anita, M.B.B.Marnie., M.S. RST ROMB OR DISCHARGE DISPOSITION Home [...] control your pain you may transition to mhgb-pid-sowwhpy Tylenol for pain relief. Do not take [...] otherwise. Please feel free to call the implementation consultant surgeon's office for details if you do not have these. Please check your portal or call the scheduling office for information regarding your appointment. CONTACT INFORMATION ?? - If you have questions about your appointment schedule, please call [phone]. - During evening or weekend hours, you may contact a member of the Plastic Surgery team by calling the [facility] hot billet shear operator at [phone] and ask to speak with the Plastic Surgery resident three dimensional art instructor for emergencies. If you have questions about your appointment schedule and you are a hand patient, please call [phone] Sunday through Sunday, 8:00 - 4:30 PM, otherwise call [phone]. For any questions or concerns regarding your care or post-operative instructions, please call , Sunday through Sunday, 8:00 - 4:30 PM. If you experience an urgent issue related to your surgery outside of business hours, please contact the [facility] hot billet shear operator at and ask to speak with [...] suction. ?? You may shower with the BIACNA drain in place; however, you should try [...] were provided to the patient and caregiver(s). ACE CHARGING MACHINE OPERATOR documented in this encounter Discharge Instructions AttachmentsThe following attachments cannot be sent through Care Everywhere. Ondansetron (By mouth, Into the mouth) (Martiniquais)Laxative, Stimulant Combination (By mouth) (Martiniquais)Oxycodone, Rapid Release (By mouth) (Martiniquais)documented in this encounter Medications at Time of [...] mouth 0 at bedtime as needed (sleep). hysdmqxsvrpr-Pf-nmas-rate examiner Take 1 tablet by 0 als [...] Disposition: DC 12/17 Follow up: 12/30 [place] [id number] ACE CHARGING MACHINE OPERATOR documented in this encounter Nursing Notes Makenna Squires R.N. - 12/17/2019 9:47 AM CST Pt discharged to [facility] this morning. Medications picked up at outpatient pharmacy. IVs removed. All discharge education completed and all questions answered. Vital signs stable. BP 101/58 (BP Location: Left arm;Upper, Patient Position: Sitting) Pulse 78 Temp 37 ??C (Oral) Resp 16 Ht 163.5 cm Wt 74.5 kg LMP 06/08/2017 SpO2 98% No BMI 27.87 kg/m?? Electronically signed by: Makenna Squires R.N. 12/17/19 10:06 AM FURNACE CHARGING MACHINE OPERATOR ACE CHARGING MACHINE OPERATOR Makenna Squires R.N. - 12/17/2019 9:46 AM CST Shift Goals: Clinical Goals for the Shift: Prepare for DC Identify possible barriers to meeting goals/advancing plan of care: None End of Shift Summary: VSS. Ambulating SBA/independently. Voiding spontaneously. Pt safe and free of falls on shift. Planning to DC to [facility] today. Electronically signed by: Makenna Squires R.N. 12/17/19 9:47 AM FURNACE CHARGING MACHINE OPERATOR ACE CHARGING MACHINE OPERATOR Carter Betts R.N. - 12/17/2019 [...] stable overnight and pain was easily controlled. ACE CHARGING MACHINE OPERATOR documented in this encounter OR Notes Op Note - Jose Rafael Chew M.D. - 12/16/2019 11:30 AM CST FULL OP NOTE Procedure(s): PANNICULECTOMY, Possible Lily de lis. Surgeon(s) and Role: * Clare Deleon M.B.BShan - Primary * Jose Rafael Chew M.D. - Volunteer Services Manager * Sulma Lindsay M.B.BShan, M.S. - Other Physician Relations Specialist Anesthesia Type General Pre-operative Diagnosis Panniculitis Post-operative [...] horizontal-only incision versus horizontal and vertical component jvkcb-ab-cpd incision. We started with the lower incision, [...] interrupted 4-0 Monocryl. We then placed two 15-Lao BIANCA drains coming out laterally on her lateral thighs region via trocar and these were secured using3-0 nylon sutures. Prior to final closure we noticed, as noted on the previous CT scan, a tiny fat hernia superior to the umbilicus. This was fixed using interrupted wtiaxz-od-obaxs 2-0 PDS. Two sutures were placed, and [...] 15 Fr. Size (mm): Size (In): Drain Oden Size (mL): 100 mL Number of Sutures Placed: Removal Reason: Closed/Suction Drain 1 Left;Anterior;Lateral Leg Bulb 15 Fr. (Active) 12/16/19 1301 Leg Placed by External Staff?: Placed by: Dr Deleon Tube Number: 1 Orientation: Left;Anterior;Lateral Drain Tube Type: Bulb Size (Fr): 15 Fr. Size (mm): Size (In): Drain Oden Size (mL): 100 mL Number of Sutures [...] Loss None Implants None Mo Ella Chew ACE CHARGING MACHINE OPERATOR documented in this encounter Miscellaneous [...] the patient was discharged from the hospital. ACE CHARGING MACHINE OPERATOR documented in this encounter Plan of Treatment Upcoming Encounters Date Type Specialty Care Team Description 10/19/2022 Procedure visit Neurology Marina Winter M.D., M.P.H. [address] [phone] (Wo rk) Scheduled Procedures Name Priority Associated Diagnoses Date/Time LIFT THIGH Excessive And Redundant Skin And Subcutaneous Tissue documented as of this encounter Procedures Procedure Name Priority Date/Time Associated Diagnosis Comme nts CBC WITHOUT Routine 12/17/2019 4:51 Results for this DIFFERENTIAL, B AM FURNACE CHARGING MACHINE OPERATOR procedure ar e in the results section. BASIC METABOLIC PANEL, Routine 12/17/2019 4:51 Re sults for this S/P AM FURNACE CHARGING MACHINE OPERATOR procedure are i n the results section. ADULT OXYGEN THERAPY Routine 12/16/2019 2:23 PM FURNACE CHARGING MACHINE OPERATOR SURGICAL PATHOLOGY, Routine 12/16/2019 11:55 Panniculitis Resu lts for this [facility] AM FURNACE CHARGING MACHINE OPERATOR procedure are i n the results section. PANNICULECTOMY 12/16/2019 10:24 Panniculitis AM FURNACE CHARGING MACHINE OPERATOR documented in this encounter Results (ABNORMAL) Basic Metabolic Panel (12/17/2019 4:51 AM FURNACE CHARGING MACHINE OPERATOR) P athologist Signature Potassium, S 3.9 3.6 - 5.2 12/17/2019 DTL mmol/L 6:00 AM FURNACE CHARGING MACHINE OPERATOR Sodium, S 140 135 - 145 12/17/2019 DTL mmol/L 6:00 AM FURNACE CHARGING MACHINE OPERATOR Chloride, S 102 98 - 107 12/17/2019 DTL mmol/L 6:00 AM FURNACE CHARGING MACHINE OPERATOR Bicarbonate, S 24 22 - 29 12/17/2019 DTL mmol/L 6:00 AM FURNACE CHARGING MACHINE OPERATOR Anion Gap 14 7 - 15 12/17/2019 DTL 6:00 AM FURNACE CHARGING MACHINE OPERATOR BUN (Blood Urea 9 6 - 21 12/17/2019 DTL Nitrogen), S mg/dL 6:00 AM FURNACE CHARGING MACHINE OPERATOR Creatinine 0.63 0.59 - 12/17/2019 DTL 1.04 mg/dL 6:00 AM FURNACE CHARGING MACHINE OPERATOR eGFR-Non >90 >=60 12/17/2019 DTL Black/ mL/min/BSA 6:00 AM FURNACE CHARGING MACHINE OPERATOR Italian Comment: ----ADDITIONAL INFORMATION---- Estimated GFR calculated using the 2009 CKD_EPI creatinine equation. eGFR-Black/ >90 >=60 mL/min/BSA 2019 6:00 AM FURNACE CHARGING MACHINE OPERATOR DTL Comment: ----ADDITIONAL INFORMATION---- Estimated GFR calculated using the 2009 CKD_EPI creatinine equation. Calcium, Total, S 8.5 (L) 8.6 - 10.0 mg/dL 12/17/2019 6:00 AM FURNACE CHARGING MACHINE OPERATOR DTL Glucose, S 81 70 - 140 mg/dL 12/17/2019 6:00 AM FURNACE CHARGING MACHINE OPERATOR D TL Specimen Anatomical Collection Method Collection Time Receive d Time (Source) Location / / Volume Laterality Blood (Blood, 12/17/2019 4:51 AM 12/17/19 5:02 Venous) FURNACE CHARGING MACHINE OPERATOR AM FURNACE CHARGING MACHINE OPERATOR Clare Murphy LAB BLOOD ADD-ON Performing Organization Address City/[facility]/ZIP Code Phon e Number [facility] - [address] [place], [place] [address] [place] [address] Laboratories[address] (ABNORMAL) CBC without Differential (12/17/2019 4:51 AM FURNACE CHARGING MACHINE OPERATOR) [facility] gist Method Time Signature Hemoglobin 11.5 (L) 11.6 - 12/17/2019 DTL 15.0 g/dL 5:07 AM FURNACE CHARGING MACHINE OPERATOR Hematocrit 33.7 (L) 35.5 - 12/17/2019 DTL 44.9 % 5:07 AM FURNACE CHARGING MACHINE OPERATOR Erythrocytes 3.78 (L) 3.92 - 12/17/2019 DTL 5.13 5:07 AM FURNACE CHARGING MACHINE OPERATOR x10(12)/L MCV 89.2 78.2 - 12/17/2019 DTL 97.9 fL 5:07 AM FURNACE CHARGING MACHINE OPERATOR RBC Distrib Width 12.2 12.2 - 12/17/2019 DTL 16.1 % 5:07 AM FURNACE CHARGING MACHINE OPERATOR Platelet Count 160 157 - 371 12/17/2019 DTL x10(9)/L 5:07 AM FURNACE CHARGING MACHINE OPERATOR Leukocytes 7.5 3.4 - 9.6 12/17/2019 DTL x10(9)/L 5:07 AM FURNACE CHARGING MACHINE OPERATOR Specimen Anatomical Collection Method Collection Time Receive d Time (Source) Location / / Volume Laterality Blood (Blood, 12/17/2019 4:51 AM 12/17/19 5:03 Venous) FURNACE CHARGING MACHINE OPERATOR AM FURNACE CHARGING MACHINE OPERATOR Jose Rafael Chew M.D. LAB BLOOD ADD-ON Performing Organization Address City/[facility]/ZIP Code Phon e Number [facility] - [address] [place], [place] [address] [place] [address] [address] Surgical Pathology, Frozen Lab (12/16/2019 11:55 AM FURNACE CHARGING MACHINE OPERATOR) Component Value Ref Test Analysis Performed At [facility] gist Range Method Time Signature [facility]/16[facility] 5[facility]47 PM FURNACE CHARGING MACHINE OPERATOR Report Randall Banuelos M.D. [phone] 12/16 [facility] electronically I verify that I have examined all relevant slides/ma terials 5:47 PM FURNACE CHARGING MACHINE OPERATOR signed by for the specimen(s) and rendered or confirmed the diagnosis. Gross Description A. ??Received fresh labeled panniculus is a 103 0 gram 12/16/2019 [facility] aggregate of unremarkable skin and adipose tissue. ??Gross 5:47 PM FURNACE CHARGING MACHINE OPERATOR examination only. ??Grossed by SSF. Interpretation FINAL DIAGNOSIS 12/16/2019 [facility] A. ??Skin and soft tissue, panniculus, panniculectomy: ??A 5:47 PM FURNACE CHARGING MACHINE OPERATOR 1030 gram aggregate of unremarkable skin and adipose tissue. Gross examination only. Specimen (Source) Anatomical Collection Method Collection Time Re ceived Time Location / / Volume Laterality Tissue 12/16/2019 11:55 (Panniculus) AM FURNACE CHARGING MACHINE OPERATOR Comment: Please weigh specimen Narrative This result has an attachment that is no t available. Clare Murphy LAB SURG PATH ORDERABLES Performing Organization Address City/State/ZIP Code Phon e Number [facility] - [address] [address] [place] [address] documented in this encounter Visit Diagnoses Diagnosis Panniculitis - Primary Panniculitis documented in this encounter Admitting Diagnoses Diagnosis Panniculitis documented in this encounter Administered Medications Inactive Administered Medications - up to 3 most recent administrations Medication Order MAR Action Action Date Dose Rate Site acetaminophen tablet 1,000 mg Given 12/17/2019 3:56 AM FURNACE CHARGING MACHINE OPERATOR 1,000 mg (TYLENOL) 1,000 mg, oral, Every 6 hours, First dose on Sun12/16/19 at 1615, Start 6 hours after last dose. Do not exceed 4 grams in 24 hours. Given 12/16/2019 9:34 PM FURNACE CHARGING MACHINE OPERATOR 1,000 mg Given 12/16/2019 5:06 PM FURNACE CHARGING MACHINE OPERATOR 1,000 mg acetaminophen tablet 1,000 mg (TYLENOL) Given 12/16/2019 9:36 AM FURNACE CHARGING MACHINE OPERATOR 1,000 mg 1,000 mg, oral, Once, On Sun12/16/19 at 0930, For 1 dose, Pre-Op busPIRone tablet 15 mg (BUSPAR) Given 12/17/2019 8:37 AM FURNACE CHARGING MACHINE OPERATOR 15 mg 15 mg, oral, Daily, First dose on Sun12/17/19 at 0900 celecoxib capsule 400 mg (CeleBREX) Given 12/16/2019 9:38 AM FURNACE CHARGING MACHINE OPERATOR 400 mg 400 mg, oral, Once, On Sun12/16/19 at 0930, For 1 dose, Pre-Op, Stable Hand, PreOp cholecalciferol (vitamin D3) tablet Given 12/17/2019 8:37 AM FURNACE CHARGING MACHINE OPERATOR 2,000 Units 2,000 Units 2,000 Units, oral, Daily, First dose on Sun12/17/19 at 0900, cholecalciferol (vitamin D3) orderable was interchanged for cholecalciferol (vitamin D3) tablet/capsule 25 mcg cholecalciferol equivalent to 1000 units cholecalciferol cyanocobalamin tablet 1,000 mcg (VITAMIN Given 12/17/2019 8: 37 AM FURNACE CHARGING MACHINE OPERATOR 1,000 mcg B12) 1,000 mcg, oral, Daily, First dose on Sun12/17/19 at 0900 enoxaparin injection 40 mg Given 12/17/2019 8:37 AM FURNACE CHARGING MACHINE OPERATOR 40 mg Left Upper Arm (LOVENOX) (Back) 40 mg, subcutaneous, Daily, First dose on Sun12/17/19 at 0900 fentaNYL injection 25 mcg (SUBLIMAZE) Given 12/16/2019 2:45 PM FURNACE CHARGING MACHINE OPERATOR 25 mcg 25 mcg, intravenous, Every 2 min PRN, For pain 4 or greater (maximum 100 mcg). If max dose of Fentanyl is reached and if pain is greater than 4, discontinue Fentanyl: give Hydromorphone, Starting on Sun12/16/19 at 1423, PACU (only) ferrous sulfate tablet 65 mg of iron Given 12/17/2019 8:37 AM FURNACE CHARGING MACHINE OPERATOR 65 mg of iron 65 mg of iron, oral, Daily, First dose on Sun12/17/19 at 0900 gabapentin tablet 600 mg (NEURONTIN) Given 12/16/2019 9:37 AM FURNACE CHARGING MACHINE OPERATOR 600 mg 600 mg, oral, Once, On Sun12/16/19 at 0930, For 1 dose, Pre-Op, Stable Hand, PreOp lactated ringers New Bag 12/16/2019 5:06 PM FURNACE CHARGING MACHINE OPERATOR 100 mL/hr 100 mL/hr 100 mL/hr, intravenous, Continuous, Starting on Sun12/16/19 at 1530 melatonin tablet 5 mg 5 mg, oral, Bedtime PRN, sleep, Starting on Sun 0 at 2122 lthvobdywcte-cdzm-HS-Ca-minerals 9 mg Given 12/17/2019 8:[address] 1 tablet iron-400 mcg tablet 1 tablet (THERAPEUTI C-M) 1 tablet, oral, Daily, First dose on Sun12/17/19 at 0900 ondansetron ODT disintegrating tablet 4 mg Given 12/16/2019 9:38 AM FURNACE CHARGING MACHINE OPERATOR 4 mg (ZOFRAN-ODT) 4 mg, sublingual, Once, On Sun12/16/19 at 0930, For 1 dose, Pre-Op, When splitting ODT at bedside, handle with gloves and a pill splitter to prevent moisture contact. oxyCODONE IR tablet 10 mg (ROXICODONE) Given 12/17/2019 9:22 AM FURNACE CHARGING MACHINE OPERATOR 10 mg 10 mg, oral, Every 4 hours PRN, moderate pain or score 4-6 of 10, severe pain or score 7-10 of 10, Starting on Sun12/16/19 at 1525 Given 12/17/2019 3:56 AM FURNACE CHARGING MACHINE OPERATOR 10 mg Given 12/16/2019 11:01 PM FURNACE CHARGING MACHINE OPERATOR 10 mg oxyCODONE IR tablet 5 mg (ROXICODONE) Given 12/16/2019 6:51 PM FURNACE CHARGING MACHINE OPERATOR 5 mg 5 mg, oral, Every 4 hours PRN, mild pain or score 1-3 of 10, Starting on Sun12/16/19 at 1525 PARoxetine tablet 40 mg (PAXIL) Given 12/17/2019 9:22 AM FURNACE CHARGING MACHINE OPERATOR 40 mg 40 mg, oral, Daily, First dose on Sun12/17/19 at 0900 scopolamine base 1 mg Medication Applied 12/16/2019 9:38 AM 1 patch Behind Left Ear over 3 days 1 patch FURNACE CHARGING MACHINE OPERATOR (TRANSDERM SCOP) 1 patch, transdermal, Administer over 72 Hours, Once as needed, nausea, vomiting, Starting on Sun12/16/19 at 0925, For 1 dose, Pre-Op, Contains 1.5 mg to deliver 1 mg/72 hours. sennosides-docusate sodium 8.6-50 mg per Given 12/17/2019 8:37 A M FURNACE CHARGING MACHINE OPERATOR 1 tablet tablet 1 tablet (SENOKOT-S) 1 tablet, oral, 2 times daily, First dose on Sun12/16/19 at 2100, Do not give if patient has diarrhea. Given 12/16/2019 9:34 PM FURNACE CHARGING MACHINE OPERATOR 1 tablet documented in this encounter Active and Recently Administered Medications Times are shown in FURNACE CHARGING MACHINE OPERATOR. Scheduled Medication Order 12/15/2019 12/16/2019 12/17/2019 acetaminophen tablet 1,000 mg (TYLENOL) 1706 (Given - Provider: Dorota Tejeda RCiera)2134 (Given - Provider: Carter Betts RRodrigoN.) 0356 (Given - Provider: Carter Betts RRodrigoN.) [...] (BUSPAR) 0837 (Given - Provider: Makenna Squires RCiera) 15 mg, oral, Daily, First dose on [...] at 0930, For 1 dose, Pre- Op, Stable Hand, PreOp cholecalciferol (vitamin D3) tablet 2,000 Units [...] at 0930, For 1 dose, Pre- Op, Stable Hand, PreOp pyhwloxbamxt-fzmc-VM-Ca-minerals 9 mg ir on-400 mcg tablet 1 [...] 1445 (Given - Provider: Chhaya Terrell R.N., [facility]) 25 mcg, intravenous, Every 2 min PRN, Fo r pain 4 or greater (maximum 100 mcg). If max dose of Fentanyl is reached and if pain is greater than 4, discontinue Fentanyl: give Hydromorphone, Starting on Sun12/16/19 at 1423, PACU (only) gentamicin-polymixin B 20 mg-500,000 Uni ts irrigation (DABS_MODIFIED) (COMPLETED) 1233 (Given - Provider: Araseli DonohueBRodrigoS. - Comment: Abdomen) irrigation, Once in surgery, [...] 858 (Not Given - Provider: Dorota Tejeda R.N. - Reason: Patient/family refused - Comment: Pt only wanted to take 5 mg.)2301 (Given - Provider: Carter Betts RRodrigoN.) 0356 (Given - Provider: Carter Betts RRodrigoN.)0993 (Given - Provider: Makenna Squires RRodrigoNRodrigo) 10 [...] days 1 patch (TRANSDERM SCOP) ( CANCELED) 2999 (Medication Applied - Provider: Mary Hutson RRodrigoNRodrigo)1525 (Due: Medication Removed - Provider: Dorota Tejeda [...] as of this encounter Care Teams Agricultural Appraiser Relationship Specialty Start Date End Date Annemarie Montiel M.D. PCP - General 04/19/[address] [place] [phone] documented as of this encounter
--- OUTSIDE RECORDS SUMMARY | 2022-09-05 06:08 | XMS_ITS | Encounter Summary ---
:1985 Author Organization [facility] Address [address] [place] [address] Care Team Providers Name Role Phone Annemarie Montiel M.D. Primary Care Provider [phone] Encounter Details Date Type Department Care Team Description 07/06/2020 Orders Only Pharmacy Prior Auth RO Annemarie Montiel M.D. [phone] [place], [place] [phone] (Wo rk) Social History [...] How often do you attend worship or adventism Never 07/04/2019 services? Do you [...] at Date Recorded Female 10/16/2018 10:53 AM COMMAND AND CONTROL SPECIALIST documented as of this encounter Plan of Treatment Upcoming Encounters Date Type Specialty Care Team Description 10/19/2022 Procedure visit Neurology Marina Winter M.D., M.P.H. [address] [place], [place] [phone] (Wo rk) Scheduled Procedures Name Priority Associated Diagnoses Date/Time LIFT THIGH Excessive And Redundant Skin And Subcutaneous Tissue documented as of this encounter Visit Diagnoses Not on filedocumented in this encounter Additional Health Concerns Assessment Noted Time PHQ-9 Depression Total Score: 06/10/2020 1:20 PM CD T documented as of this encounter Care Teams Rag Sorter Relationship Specialty Start Date End Date Annemarie Montiel M.D. PCP - General 04/19/[address] [place] [address] documented as of this encounter
--- OUTSIDE RECORDS SUMMARY | 2022-09-05 06:08 | XMS_ITS | Encounter Summary ---
:1985 Author Organization [facility] Address [address] [place] [address] Care Team Providers Name Role Phone Annemarie Montiel M.D. Primary Care Provider [phone] Encounter Details Date Type Department Care [...] How often do you attend lutheran or religion Never 07/04/2019 services? Do you [...] at Date Recorded Female 10/16/2018 10:53 AM PREANALYTICS TEAM LEAD documented as of this encounter Plan of Treatment Upcoming Encounters Date Type Specialty Care Team Description 10/19/2022 Procedure visit Neurology Marina Winter M.D., M.P.H. [address] [phone] (Wo rk) Scheduled Procedures Name Priority Associated Diagnoses Date/Time LIFT THIGH Excessive And Redundant Skin And Subcutaneous Tissue documented as of this encounter Procedures Procedure Name Priority Date/Time Associated Diagnosis Comme nts PLASTIC AND RECON Routine 12/30/2019 12:00 PM Res ults for this SURGERY IMAGE EXAM PREANALYTICS TEAM LEAD procedure are in the results section. documented in this encounter Results Breast Breast Reconstruction-Plastic And Recon Surgery Image Exam (12/30/2019 12:00 PM PREANALYTICS TEAM LEAD) Specimen (Source) Anatomical Location Collection Method / Collectio n Time Received Time / Laterality Volume Narrative IIMS - 12/30/2019 4:09 PM PREANALYTICS TEAM LEAD This order has been created and auto-finalized [...] documented as of this encounter Care Teams Asphalt Mixing Machine Operator Relationship Specialty Start Date End Date Annemarie Montiel M.D. PCP - General 04/19/17 [address] [facility] [place] [phone] documented as of this encounter
--- OUTSIDE RECORDS SUMMARY | 2022-09-05 06:08 | XMS_ITS | Encounter Summary ---
:1985 Author Organization [facility] Address [address] [place] [address] Care Team Providers Name Role Phone Annemarie Montiel M.D. Primary Care Provider [phone] Reason for Visit Appointment Request (Routine) - Closed Specialty Diagnoses / Procedures Referred By Contact Refer red To Contact Plastic Surgery Diagnoses Follow Up Examination Postoperative Visit Referral ID Status Reason Start Date Expiration Date Visits Requ ested Visits Authorized [id number] Closed 12/23/2019 12/22/2020 1 1 Encounter Details Date Type Department Care Team Description 12/24/2019 Office Visit Division of Plastic Zukanovic, Follow U p Examination Surgery in [place], Melanie, SEISMIC COMPUTER, Posto perative Visit [place] C.N.P., D.N.P. (Primary Dx) [address] [place] [address] [place] [address] [phone] Social History Tobacco Use Types Packs/Day Years [...] How often do you attend yazidism or denominational Never 07/04/2019 services? 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 - 12/24/2019 11:00 AM CST SUBJECTIVE CHIEF COMPLAINT / REASON FOR VISIT Service of Dr. Deleon (4-1942) Maria Alejandra Gomez is a 34 y.o. [...] need to push that appointment out further. ANICAL SYSTEMS DESIGNER documented in this encounter Plan of Treatment Upcoming Encounters Date Type Specialty Care Team Description 10/19/2022 Procedure visit Neurology Marina Winter M.D., M.P.H. [address] [place] [phone] (Wo rk) Scheduled Procedures Name Priority Associated Diagnoses Date/Time LIFT THIGH Excessive And Redundant Skin And Subcutaneous Tissue documented as of this encounter Visit Diagnoses Diagnosis Follow Up Examination Postoperative Visi t - Primary documented in this encounter Additional Health Concerns Assessment Noted Time PHQ-9 Depression Total Score: 19 10/09/2019 11:[address] documented as of this encounter Care Teams Mixing Plant Operator Relationship Specialty Start Date End Date Annemarie Montiel M.D. PCP - General 04/19/17 [address], [place] [phone] documented as of this encounter
--- OUTSIDE RECORDS SUMMARY | 2022-09-05 06:08 | XMS_ITS | Encounter Summary ---
:1985 Author Organization [facility] Address [address] [place] [address] Care Team Providers Name Role Phone Annemarie Montiel M.D. Primary Care Provider [phone] Reason for Visit Behavioral Health (Routine) - Closed Specialty Diagnoses / Procedures Referred By Contact Refer red To Contact Psychiatry / Diagnoses Anxiety Generalized Disorder Annemarie Montiel, [facility] and M.DR[facility]rig[facility] [address] [place] [address] Referral ID Status Reason Start Date Expiration Date Visits Requ ested Visits Authorized [id number] Closed 06/01/2020 06/01/2021 1 1 Encounter Details Date Type Department Care Team Description 06/10/2020 Comprehensive Visit Department of Ortiz, Anxiety Generalized Family Medicine, Hodan Zuniga, Disorder [facility], L.I.C.S.W. in [facility] [address], [place] [address] [facility] [place] [address] [place], [place] [phone] [address] (Work) [phone] Social History Tobacco Use Types Packs/Day Years [...] How often do you attend sikhism or faith Never 07/04/2019 services? Do you [...] CASE MANAGER documented as of this encounter Consult Notes Hodan Ortiz L.I.C.S.W. - 06/10/2020 1:30 PM CDT Psychosocial Assessment SUBJECTIVE DEMOGRAPHIC INFORMATION Referral Source: Provider/Service Referral Name: Dr. Montiel Referral Reason: Coping, adjustment and support Person(s) present during interview: Patient Primary care clinic and provider: [facility] Porfirio / Annemarie Montiel M.D. 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 Spirituality / Latter Day / Culture: History: Education: High school (9-12/GED) Employment: Currently Employed Works at [employer] Psychosocial Risk Factors impacting the patient: Limited Social Support, Trauma/Stress Abuse, Neglect, Maltreatment, Trauma: Current: None reported. Past: None reported. ENVIRONMENTAL SUPPORTS Current Living Situation: Patient resides in [place] with her 4 children and the father [...] Communication: Can write, Talks, Understands speaking, Understands Puerto [place]ican It is anticipated that the patient will need assistance with None. ASSISTIVE DEVICES Patient has the following equipment: Eyeglasses Patient anticipates potentially needing the following additional equipment: None Transportation needs: Independent to drive SERVICES REQUESTED BROWNELL OPERATOR Formal and Informal Resources: 1. Family, friends, co workers, providers. FINANCES/INSURANCE Primary insurance: [facility] Secondary insurance: Income Information Does [...] weight loss surgery while living briefly in [place]. Patient shared that she enjoyed living in [place] it was a new start for her family however due to her own health and health of her father she and her children returned to [place]. Patient shared that her did not returnwith her he waited a month as he enjoyed [place]. Patient shared that she did divorce her [...] total time, 45 minutes for counseling. Sapna NolanSBrook. 06/10/2020 documented in this encounter Plan of Treatment Upcoming Encounters Date Type Specialty Care Team Description 10/19/2022 Procedure visit Neurology Marina Winter M.D., M.P.H. [address] [phone] (Wo rk) Scheduled Procedures Name Priority Associated Diagnoses Date/Time LIFT THIGH Excessive And Redundant Skin And Subcutaneous Tissue documented as of this encounter Visit Diagnoses Diagnosis Anxiety Generalized Disorder documented in this encounter Additional Health Concerns Assessment Noted Time PHQ-9 Depression Total Score: 12 06/10/2020 1:20 PM CD T documented as of this encounter Care Teams Stem Frazer Relationship Specialty Start Date End Date Annemarie Montiel M.D. PCP - General 04/19/[address] [address] documented as of this encounter
--- OUTSIDE RECORDS SUMMARY | 2022-09-05 06:08 | XMS_ITS | Encounter Summary ---
:1985 Author Organization [facility] Address [address] [place] [address] Care Team Providers Name Role Phone Annemarie Montiel M.D. Primary Care Provider [phone] Encounter Details Date Type Department Care [...] How often do you attend confucianism or rastafarian Never 07/04/2019 services? 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 [address] [phone] (Wo rk) Scheduled [...] documented as of this encounter Care Teams Monorail Helper Relationship Specialty Start Date End Date Annemarie Montiel M.D. PCP - General 04/19/17 [address] [place] [phone] documented as of this encounter
--- OUTSIDE RECORDS SUMMARY | 2022-09-05 06:08 | XMS_ITS | Encounter Summary ---
:1985 Author Organization [facility] Address [address] [place] [address] Care Team Providers Name Role Phone Annemarie Montiel M.D. Primary Care Provider [phone] Reason for Referral Outpatient (Routine) - Closed Specialty Diagnoses / Procedures Referred By Contact Refer red To Contact Diagnoses Migraine Headache Marina Winter M.D., [facility] Procedures Botox for chronic migraine NE INJECTION,ONABOTULINUMTOXINA NE CHEMODENERV FACIAL TRIGEM NIDHI M.P.H. [address] [place] [phone] Referral ID Status Reason Start Date Expiration Date Visits Requ ested Visits Authorized [id number] Closed 11/04/2020 11/04/2021 1 4 GUARD INSPECTOR Reason for Visit Reason Comments Botulinum Toxin Injection Outpatient (Routine) - Authorized Specialty Diagnoses / Procedures Referred By Contact Refer red To Contact Diagnoses Migraine Headache Marina Winter M.D., [facility] Procedures Botox for Chronic Migraine M.P.H. [address] [place] [address] Referral ID Status Reason Start Date Expiration Date Visits V isits Requested Authorized [id number] Authorized 10/06/2020 10/06/2022 4 4 Encounter Details Date Type Department Care Team Description 11/04/2020 Procedure visit Department of Neurology Marina Winter, Migraine Headache in [facility] jeevan Jaramillo, M.P.H. [address] [facility] [address] [place], [place] [address] Social History Tobacco Use Types Packs/Day [...] How often do you attend sikhism or anabaptist Never 07/04/2019 services? 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 [address] [phone] (Wo rk) Scheduled Procedures Name Priority Associated Diagnoses Date/Time LIFT THIGH Excessive And Redundant Skin And Subcutaneous Tissue documented as of this encounter Procedures Procedure Name Priority Date/Time Associated Comments Diagnosis NE CHEMODENERV FACIAL Routine 11/04/2020 8:45 AM Migraine Head ache Results for this TRIGEM NIDHI ICE GUARD INSPECTOR procedure are i n the results section. documented in this encounter Results NE CHEMODENERV FACIAL TRIGEM NIDHI (11/04/2020 8:45 AM ICE GUARD INSPECTOR) Narrative MMODAL - 11/04/2020 8:45 AM ICE GUARD INSPECTOR Marina Winter M.D., M.P.H. ? 11/04/2020 ??9:08 AM Botox for chronic migraine Date/Time: 11/04/2020 8:45 AM Performed by: Marina Winter M.D., M.P .H. Authorized by: Marina Winter M.D., M. P.H. PROCEDURE DETAILS ?? Pre-procedure pain score: 2/10 Injection of: 100 Units onabotulinumtoxi nA 100 unit 50 Units onabotulinumtoxinA (cosmetic) 50 unit Needle gauge: 30 Needle length: 0.5 in Injection site details Bar Tacker / Procerus muscle(s): 5 units into the left windows administrator muscle, 5 units into the right windows administrator muscle and 5 units into the procerus [...] AM 50 Units injection 50 Units (BOTOX ICE GUARD INSPECTOR COSMETIC) 50 Units, injection, One-Time Injection, Starting on Anneliese 11/04/20 at 0845, For 1 dose onabotulinumtoxinA injection 100 Units Given 11/04/2020 8:45 AM ICE GUARD INSPECTOR 100 Units (BOTOX) 100 Units, injection, One-Time Injection, Starting on Anneliese 11/04/20 at 0845, For 1 dose documented in this encounter Additional Health Concerns Assessment Noted Time PHQ-9 Depression Total Score: 06/10/2020 1:20 PM CD T documented as of this encounter Care Teams Audiovisual Lead Technician Relationship Specialty Start Date End Date Annemarie Montiel M.D. PCP - General 04/19/[address] [phone] documented as of this encounter
--- OUTSIDE RECORDS SUMMARY | 2022-09-05 06:08 | XMS_ITS | Encounter Summary ---
:1985 Author Organization [facility] Address [address] [place] [address] Care Team Providers Name Role Phone Annemarie Montiel M.D. Primary Care Provider [phone] Reason for Visit Outpatient (Routine) - Closed Specialty Diagnoses / Procedures Referred By Contact Refer red To Contact Plastic Surgery Leyla River P.A.-C., [facility] [address] [facility] [address] [place], [place] [address] Referral ID Status Reason Start Date Expiration Date Visits Requ ested Visits Authorized [id number] Closed 12/30/2019 12/29/2020 1 1 Encounter Details Date Type Department Care Team Description 01/13/2020 Office Visit Division of Plastic Kera, Nic U p Examination Surgery in [place], Melanie, ÁNGEL, Posto perative Visit [place] C.N.P., D.N.P. (Primary Dx) [address] [facility] [address] [place] [address] [phone] Social History Tobacco Use Types Packs/Day Years [...] How often do you attend pentecostalism or samaritan Never 07/04/2019 services? 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 - 01/13/2020 11:00 AM CDT SUBJECTIVE CHIEF COMPLAINT / REASON FOR VISIT Service of Dr. Deleon ([id number]) Maria Alejandra Gomez is a 34 y.o. 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 OBJECTIVE PHYSICAL EXAM Constitutional She appears well-developed [...] Neurology Marina Winter M.D., M.P.H. [address] [phone] (Wo rk) [...] as of this encounter Care Teams Research Director Relationship Specialty Start Date End Date Annemarie Montiel M.D. PCP - General 04/19/[address] [phone] documented as of this encounter
--- OUTSIDE RECORDS SUMMARY | 2022-09-05 06:08 | XMS_ITS | Encounter Summary ---
:1985 Author Organization [facility] Address [address] [place] [address] Care Team Providers Name Role Phone Annemarie Montiel M.D. Primary Care Provider [phone] Reason for Visit Reason Comments COVID Inquiry Encounter Details Date Type Department Care Team Description 06/04/2020 Clinical Communication Department of Annemarie Montiel Family MedicineNadia M.D. [facility], in [address] [place], [place] [address] [place], [place] [phone] (Work) [phone] Social History Tobacco Use Types Packs/Day Years [...] How often do you attend gnosticism or buddhist Never 07/04/2019 services? 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 1. Do [...] Neurology Marina Winter M.D., M.P.H. [address] [phone] (Wo rk) Scheduled Procedures Name Priority Associated Diagnoses Date/Time LIFT THIGH Excessive And Redundant Skin And Subcutaneous Tissue documented as of this encounter Visit Diagnoses Not on filedocumented in this encounter Additional Health Concerns Assessment Noted Time PHQ-9 Depression Total Score: 15 2020 3:09 PM CD T documented as of this encounter Care Teams Parts Delivery Driver Relationship Specialty Start Date End Date Clubb, Annemarie L, M.D. PCP - General 04/19/17 [address] [place] [phone] documented as of this encounter
--- OUTSIDE RECORDS SUMMARY | 2022-09-05 06:08 | XMS_ITS | Encounter Summary ---
:1985 Author Organization [facility] Address [address] [place] [address] Care Team Providers Name Role Phone Annemarie Montiel M.D. Primary Care Provider [phone] Encounter Details Date Type Department Care Team Description 04/07/2020 Clinical Communication Department of Maisha Song, MedicinePorfirio M.D. [facility], in [facility] [address] [place], [place] [address] [place] [address] [place], [place] [phone] (Wo rk) [address] [phone] Social History Tobacco Use Types Packs/Day Years [...] How often do you attend mormonism or episcopalian Never 07/04/2019 services? 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 - 04/14/2020 9:51 AM CDT Informed patient that form has been mailed. Telephone Encounter - Johny Ramos - 04/13/2020 9:28 AM CDT Patient calling in and is wondering if this paper work could be picked up at the clinic today? Please call the patient back [phone]. She is needing to get this paper [...] Nicki Montiel MD Department of Family Medicine [facility] documented in this encounter Plan of Treatment Upcoming Encounters Date Type Specialty Care Team Description 10/19/2022 Procedure visit Neurology Marina Winter M.D., M.P.H. [address] [phone] (Wo rk) Scheduled Procedures Name Priority Associated Diagnoses Date/Time LIFT THIGH Excessive And Redundant Skin And Subcutaneous Tissue documented as of this encounter Visit Diagnoses Not on filedocumented in this encounter Additional Health Concerns Assessment Noted Time PHQ-9 Depression Total Score: 15 2020 3:09 PM CD T documented as of this encounter Care Teams Cement Storage Worker Relationship Specialty Start Date End Date Annemarie Monitel M.D. PCP - General 04/19/[address] [address] documented as of this encounter
--- OUTSIDE RECORDS SUMMARY | 2022-09-05 06:08 | XMS_ITS | Encounter Summary ---
:1985 Author Organization [facility] Address [address] [place] [address] Care Team Providers Name Role Phone Annemarie Montiel M.D. Primary Care Provider [phone] Reason for Visit Reason Comments Med Refill Encounter Details Date Type Department Care Team Description 07/05/2020 Refill Department of Yenifer Song M.D. Med Refill Medicine, [facility], [address] [place] [address] [address] [place] [address] [facility] [phone] Social History Tobacco Use Types Packs/Day Years [...] How often do you attend gnosticist or quaker Never 07/04/2019 services? 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 [address] [place], [place] [phone] (Wo rk) Scheduled Procedures Name Priority Associated Diagnoses Date/Time LIFT THIGH Excessive And Redundant Skin And Subcutaneous Tissue documented as of this encounter Visit Diagnoses Diagnosis Migraine Headache documented in this encounter Additional Health Concerns Assessment Noted Time PHQ-9 Depression Total Score: 12 06/10/2020 1:20 PM CD T documented as of this encounter Care Teams Electrical Controls Designer Relationship Specialty Start Date End Date Annemarie Montiel M.D. PCP - General 04/19/170 [place] [address] documented as of this encounter
--- OUTSIDE RECORDS SUMMARY | 2022-09-05 06:08 | XMS_ITS | Encounter Summary ---
:1985 Author Organization [facility] Address [address] [place] [address] Care Team Providers Name Role Phone Annemarie Montiel M.D. Primary Care Provider [phone] Reason for Visit Outpatient (Routine) - Closed Specialty Diagnoses / Procedures Referred By Contact Refer red To Contact Plastic Surgery Leyla River P.A.-C., [facility] [address] [facility] [address] [place], [place] [address] Referral ID Status Reason Start Date Expiration Date Visits Requ ested Visits Authorized [id number] Closed 12/30/2019 12/29/2020 1 1 Encounter Details Date Type Department Care Team Description 03/09/2020 Virtual Visit Division of Plastic Ishmael Deleon; Surgery in [place], Surendra SparksSRodrigo Surgery Bariatric Status Post [place] [address] [facility] [address] [place] [address] [phone] Social History Tobacco Use Types Packs/Day Years [...] How often do you attend lutheran or buddhism Never 07/04/2019 services? 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 [address], [place] [phone] (Wo rk) Scheduled Procedures Name Priority Associated Diagnoses Date/Time LIFT THIGH Excessive And Redundant Skin And Subcutaneous Tissue documented as of this encounter Visit Diagnoses Diagnosis Panniculitis Surgery Bariatric Status Post documented in this encounter Additional Health Concerns Assessment Noted Time PHQ-9 Depression Total Score: 15 2020 3:09 PM CD T documented as of this encounter Care Teams Driving School Instructor Relationship Specialty Start Date End Date Annemarie Montiel M.D. PCP - General 04/19/17 [address], [place] [address] documented as of this encounter
--- OUTSIDE RECORDS SUMMARY | 2022-09-05 06:09 | XMS_ITS | Encounter Summary ---
:1985 Author Organization [facility] Address [address] [place] [address] Care Team Providers Name Role Phone Annemarie Montiel M.D. Primary Care Provider [phone] Reason for Visit Outpatient (Routine) - Closed Specialty Diagnoses / Procedures Referred By Contact Refer red To Contact Plastic Surgery Diagnoses Surgery Bariatric Status Post Panniculitis Annemarie Montiel M.D. [facility] [address] [place] [address] Referral ID Status Reason Start Date Expiration Date Visits Requ ested Visits Authorized [id number] Closed 10/09/2019 10/08/2020 1 1 Encounter Details Date Type Department Care Team Description 11/07/2019 Comprehensive Visit Division of Plastic Pancho Surgery Bariatric Status Post; Surgery in , [place], Panniculitis [place], [place] [facility] [address] [facility] [address] [place] [address] [phone] Social History Tobacco Use Types Packs/Day Years [...] How often do you attend mormonism or muslim Never 07/04/2019 services? 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 She has tried gxth-pwr-arnoiht yeast topical medications, but these are not [...] time. Questions answered. Seen with Dr. Deleon. PHONE SWITCHBOARD OPERATOR documented in this encounter Plan of Treatment Upcoming Encounters Date Type Specialty Care Team Description 10/19/2022 Procedure visit Neurology Marina Winter M.D., M.P.H. [address] [place] [phone] (Wo rk) Scheduled Procedures Name Priority Associated Diagnoses Date/Time LIFT THIGH Excessive And Redundant Skin And Subcutaneous Tissue documented as of this encounter Visit Diagnoses Diagnosis Surgery Bariatric Status Post Panniculitis documented in this encounter Additional Health Concerns Assessment Noted Time PHQ-9 Depression Total Score: 19 10/09/2019 11:[address] documented as of this encounter Care Teams Undertaker Assistant Relationship Specialty Start Date End Date Annemarie Montiel M.D. PCP - General 04/19/17 [address] [place] [address] documented as of this encounter
--- OUTSIDE RECORDS SUMMARY | 2022-09-05 06:09 | XMS_ITS | Encounter Summary ---
:1985 Author Organization [facility] Address [address] [place] [address] Care Team Providers Name Role Phone Annemarie Montiel M.D. Primary Care Provider [phone] Encounter Details Date Type Department Care Team Description 11/06/2019 Clinical Communication Department of Maisha Song, MedicinePorfirio M.D. [facility], in [facility] [address] [place], [place] 0 [place] [address] [place], [place] [phone] (Wo rk) [address] [phone] Social History Tobacco Use Types Packs/Day Years [...] How often do you attend rastafari or gnosticist Never 07/04/2019 services? 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 [address] [phone] (Wo rk) Scheduled Procedures Name Priority Associated Diagnoses Date/Time LIFT THIGH Excessive And Redundant Skin And Subcutaneous Tissue documented as of this encounter Visit Diagnoses Not on filedocumented in this encounter Additional Health Concerns Assessment Noted Time PHQ-9 Depression Total Score: 19 10/09/2019 11:[address] documented as of this encounter Care Teams Heater Operator Relationship Specialty Start Date End Date Annemarie Montiel M.D. PCP - General 04/19/17 [address] [place] [phone] documented as of this encounter
--- OUTSIDE RECORDS SUMMARY | 2022-09-05 06:09 | XMS_ITS | Encounter Summary ---
:1985 Author Organization [facility] Address [address] [place] [address] Care Team Providers Name Role Phone Annemarie Montiel M.D. Primary Care Provider [phone] Encounter Details Date Type Department Care [...] often do you attend jehovah's witness or anabaptist Never 07/04/2019 services? 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 [address] [place] [phone] (Wo rk) Scheduled Procedures Name [...] documented as of this encounter Care Teams Simplex Printer Installer Relationship Specialty Start Date End Date Annemarie Montiel M.D. PCP - General 04/19/17 [address] [place] [phone] documented as of this encounter
--- OUTSIDE RECORDS SUMMARY | 2022-09-05 06:09 | XMS_ITS | Encounter Summary ---
:1985 Author Organization [facility] Address [address] [place] [address] Care Team Providers Name Role Phone Annemarie Montiel M.D. Primary Care Provider [phone] Encounter Details Date Type Department Care Team Description 11/26/2019 Clinical Communication Division of Plastic Liam white, Surgery in [place], Surendra SparksB.S. [place] [address] [facility] [address] [place] [phone] Social History Tobacco Use Types Packs/Day Years [...] How often do you attend restorationism or muslim Never 07/04/2019 services? 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 - 11/26/2019 2:45 PM WEED SPRAYER SUBJECTIVE CHIEF COMPLAINT / REASON FOR CALL [...] following references were used: nursing clinical judgement SPRAYER Telephone Encounter - Keisha Mir M.S.N., R.N. - 11/26/2019 2:23 PM WEED SPRAYER msg left SPRAYER Telephone Encounter - Sanam Day - 11/26/2019 8:55 AM CST This pt called and would like to schedule her surgery. Please call her back at . Thank you. SPRAYER documented in this encounter Plan of Treatment Upcoming Encounters Date Type Specialty Care Team Description 10/19/2022 Procedure visit Neurology Marina Winter M.D., M.P.H. [address] [place] [phone] (Wo rk) Scheduled Procedures Name Priority Associated Diagnoses Date/Time LIFT THIGH Excessive And Redundant Skin And Subcutaneous Tissue documented as of this encounter Visit Diagnoses Not on filedocumented in this encounter Additional Health Concerns Assessment Noted Time PHQ-9 Depression Total Score: 19 10/09/2019 11:[address] documented as of this encounter Care Teams Flooring Grader Relationship Specialty Start Date End Date Annemarie Montiel M.D. PCP - General 04/19/17 [address] [place] [phone] documented as of this encounter
--- OUTSIDE RECORDS SUMMARY | 2022-09-05 06:09 | XMS_ITS | Encounter Summary ---
:1985 Author Organization [facility] Address [address] [place] [address] Care Team Providers Name Role Phone Annemarie Montiel M.D. Primary Care Provider [phone] Reason for Visit Reason Comments Med Refill Encounter Details Date Type Department Care Team Description 01/17/2019 Refill Department of Yenifer Song M.D. Med Refill Medicine, [facility], [address] [place] [address] [address] [place] [address] [facility] [phone] Social History Tobacco Use Types Packs/Day Years [...] How often do you attend advent or mormon Never 07/04/2019 services? 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 Nurse Review: Pharmacy Communication Provider: Annemarie Montiel M.D. Medication: cyanocobalamin Strength: 500 mcg disintegrating tab sublingual Frequency: Take 2 tabs PO daily Pharmacy: [facility] Comment: Nurse Review: Pharmacy Communication Provider: Annemarie Montiel M.D. Medication: mirtazapine Strength: 15 mg disintegrating tab Frequency: Take 1 tab PO at bedtime Pharmacy: [facility] Comment: documented in this encounter Plan of Treatment Upcoming Encounters Date Type Specialty Care Team Description 10/19/2022 Procedure visit Neurology Marina Winter M.D., M.P.H. [address] [phone] (Wo rk) Scheduled Procedures Name Priority Associated Diagnoses Date/Time LIFT THIGH Excessive And Redundant Skin And Subcutaneous Tissue documented as of this encounter Visit Diagnoses Not on filedocumented in this encounter Additional Health Concerns Assessment Noted Time PHQ-9 Depression Total Score: 13 01/16/2019 3:01 PM CD T documented as of this encounter Care Teams Second Vp Hr Assessment Relationship Specialty Start Date End Date Annemarie Montiel M.D. PCP - General 04/19/[address] [place] [phone] documented as of this encounter
--- OUTSIDE RECORDS SUMMARY | 2022-09-05 06:09 | XMS_ITS | Encounter Summary ---
:1985 Author Organization [facility] Address [address] [place] [address] Care Team Providers Name Role Phone Annemarie Montiel M.D. Primary Care Provider [phone] Reason for Visit Reason Comments Med Refill Encounter Details Date Type Department Care Team Description 08/11/2019 Refill Department of Yenifer Song M.D. Med Refill Medicine, [facility], [address] [place] [address] [address] [place] [address] [facility] [phone] Social History Tobacco Use Types Packs/Day Years [...] How often do you attend sabianist or druze Never 07/04/2019 services? 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 [address] [place], [place] [phone] (Wo rk) Scheduled Procedures Name Priority Associated Diagnoses Date/Time LIFT THIGH Excessive And Redundant Skin And Subcutaneous Tissue documented as of this encounter Visit Diagnoses Not on filedocumented in this encounter Additional Health Concerns Assessment Noted Time PHQ-9 Depression Total Score: 11 03/25/2019 1:49 PM CD T documented as of this encounter Care Teams Home Administrator Relationship Specialty Start Date End Date Annemarie Montiel M.D. PCP - General 04/19/[address] [place] [address] documented as of this encounter
--- OUTSIDE RECORDS SUMMARY | 2022-09-05 06:09 | XMS_ITS | Encounter Summary ---
:1985 Author Organization [facility] Address [address] [place] [address] Care Team Providers Name Role Phone Annemarie Montiel M.D. Primary Care Provider [phone] Encounter Details Date Type Department Care Team Description 01/16/2019 Hospital Encounter Department of Annemarie Montiel H ypokalemia [facility] [place] [address] [place] [phone] [phone] Social History Tobacco Use Types Packs/Day Years [...] How often do you attend catholic or nondenominational Never 07/04/2019 services? 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 [address] [phone] (Wo rk) Scheduled [...] 4.5 3.6 - 5.2 01/16/2019 [facility] mmol/L 4:00 PM CDT [facility] Specimen Anatomical Collection Method Collection Time Receive d Time (Source) Location / / Volume Laterality Blood (Blood, 01/16/2019 2:54 PM 01/17/20 19 2:58 Venous) CDT PM CDT Annemarie Montiel M.D. LAB BLOOD ADD-ON Performing Organization Address City/State/ZIP Code Phon e Number [facility] [address] [place] [address] LAB documented in this encounter Visit Diagnoses Diagnosis Hypokalemia documented in this encounter Additional Health Concerns Assessment Noted Time PHQ-9 Depression Total Score: 13 01/16/2019 3:01 PM CD T documented as of this encounter Care Teams Refrigerator Repair Technician Relationship Specialty Start Date End Date Annemarie Montiel M.D. PCP - General 04/19/[address] [place] [address] documented as of this encounter
--- OUTSIDE RECORDS SUMMARY | 2022-09-05 06:09 | XMS_ITS | Encounter Summary ---
:1985 Author Organization [facility] Address [address] [place] [address] Care Team Providers Name Role Phone Annemarie Montiel M.D. Primary Care Provider [phone] Encounter Details Date Type Department Care Team Description 02/21/2019 Clinical Communication Department of Maisha Song, MedicinePorfirio M.D. [facility], in [facility] [address] [place], [place] [address] [place] [address] [place], [place] [phone] (Wo rk) [address] [phone] Social History Tobacco Use Types Packs/Day Years [...] How often do you attend bahai or episcopalian Never 07/04/2019 services? 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 [address] [place], [place] [phone] (Wo rk) Scheduled Procedures Name Priority Associated Diagnoses Date/Time LIFT THIGH Excessive And Redundant Skin And Subcutaneous Tissue documented as of this encounter Visit Diagnoses Not on filedocumented in this encounter Additional Health Concerns Assessment Noted Time PHQ-9 Depression Total Score: 13 01/16/2019 3:01 PM CD T documented as of this encounter Care Teams Industrial Safety And Health Specialist Relationship Specialty Start Date End Date Annemarie Montiel M.D. PCP - General 04/19/[address] [place] [phone] documented as of this encounter
--- OUTSIDE RECORDS SUMMARY | 2022-09-05 06:09 | XMS_ITS | Encounter Summary ---
:1985 Author Organization [facility] Address [address] [place] [address] Care Team Providers Name Role Phone Annemarie Montiel M.D. Primary Care Provider [phone] Encounter Details Date Type Department Care [...] How often do you attend restorationism or caodaism Never 07/04/2019 services? Do you [...] at Date Recorded Female 10/16/2018 10:53 AM APPEALS REPRESENTATIVE documented as of this encounter Plan of Treatment Upcoming Encounters Date Type Specialty Care Team Description 10/19/2022 Procedure visit Neurology Marina Winter M.D., M.P.H. [address] [phone] (Wo rk) Scheduled Procedures Name Priority Associated Diagnoses Date/Time LIFT THIGH Excessive And Redundant Skin And Subcutaneous Tissue documented as of this encounter Procedures Procedure Name Priority Date/Time Associated Diagnosis Comme nts PLASTIC AND RECON Routine 11/07/2019 11:36 AM Res ults for this SURGERY IMAGE EXAM APPEALS REPRESENTATIVE procedure are in the results section. documented in this encounter Results Entire Body Abdominoplasty-Plastic And Recon Surgery Image Exam (11/07/2019 11:36 AM APPEALS REPRESENTATIVE) Specimen (Source) Anatomical Collection Method Collection Time Re ceived Time Location / / Volume Laterality 11/07/2019 12:00 PM APPEALS REPRESENTATIVE Narrative [facility] - 11/07/2019 11:36 AM APPEALS REPRESENTATIVE This order has been created and auto-finalized to support the import of images acquired without order. The clini lori documentation to support these images can be found on the encounter nate t produced images. Provider Not In System IMG NON RAD IMAGING PROCEDUR ES Performing Organization Address City/State/ZIP Code Phon e Number [facility] NA documented in this encounter Visit Diagnoses Not on filedocumented in this encounter Additional Health Concerns Assessment Noted Time PHQ-9 Depression Total Score: 19 10/09/2019 11:[address] documented as of this encounter Care Teams Director Of Student Aid Relationship Specialty Start Date End Date Annemarie Montiel M.D. PCP - General 04/19/[address] [place] [address] documented as of this encounter
--- OUTSIDE RECORDS SUMMARY | 2022-09-05 06:09 | XMS_ITS | Encounter Summary ---
:1985 Author Organization [facility] Address [address] [place] [address] Care Team Providers Name Role Phone Annemarie Montiel M.D. Primary Care Provider [phone] Encounter Details Date Type Department Care Team Description 07/01/2019 Clinical Communication Department of Maisha Song, MedicinePorfirio M.D. [facility], in [facility] [address] [place], [place] [address] [place] [address] [place], [place] [phone] (Wo rk) [address] [phone] Social History Tobacco Use Types Packs/Day Years [...] How often do you attend judaism or cheondoism Never 07/04/2019 services? 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 - 07/01/2019 2:35 PM CDT Can [...] Procedure visit Neurology Marina Winter M.D., M.P.H. [address], [place] [phone] (Wo rk) Scheduled Procedures Name Priority Associated Diagnoses Date/Time LIFT THIGH Excessive And Redundant Skin And Subcutaneous Tissue documented as of this encounter Visit Diagnoses Not on filedocumented in this encounter Additional Health Concerns Assessment Noted Time PHQ-9 Depression Total Score: 11 03/25/2019 1:49 PM CD T documented as of this encounter Care Teams Entry Level Software Developer Relationship Specialty Start Date End Date Annemarie Montiel M.D. PCP - General 04/19/[place] [phone] documented as of this encounter
--- OUTSIDE RECORDS SUMMARY | 2022-09-05 06:09 | XMS_ITS | Encounter Summary ---
:1985 Author Organization [facility] Address [address] [place] [address] Care Team Providers Name Role Phone Annemarie Montiel M.D. Primary Care Provider [phone] Reason for Referral MRI/CAT/PET Scan (Routine) - Closed Specialty Diagnoses / Procedures Referred By Contact Refer red To Contact Radiology Diagnoses [facility] Abdomen Pelvis with IV Contrast [facility] [address] [place], [place] [address] Referral ID Status Reason Start Date Expiration Date Visits Requ ested Visits Authorized [id number] Closed 12/15/2019 12/14/2020 1 1 IALTY COOK Reason for Visit Outpatient (Routine) - Closed Specialty Diagnoses / Procedures Referred By Contact Refer red To Contact Plastic Surgery [facility] M.B[facility] [address] [place], [place] [address] Referral ID Status Reason Start Date Expiration Date Visits Requ ested Visits Authorized [id number] Closed 11/26/2019 11/25/2020 1 1 Encounter Details Date Type Department Care Team Description 12/15/2019 Office Visit Division of Plastic Obinna Deleon (Primary Surgery in [place], Surendra SparksBRodrigoS. Dx) [place] [address] [facility] [address] [place] [address] [phone] Social History Tobacco Use Types Packs/Day Years [...] How often do you attend sikh or yarsanism Never 07/04/2019 services? Do you [...] at Date Recorded Female 10/16/2018 10:53 AM SPECIALTY COOK documented as of this encounter Progress Notes Jose Rafael Chew M.D. - 12/15/2019 2:15 PM CST Ms. Gomez is seen for a pre-op visit. No change since our last visit November 07, 2019. Likely, we will have to do a vertical component of the panniculectomy [id number]. Again, discussed T-junction and wound healing issues. We will plan to get a CT of the abdomen to evaluate for any hernias or otherfindings again today. Plan to have her stay overnight for observation purposes. Consent was signed today. IALTY COOK documented in this encounter Plan of Treatment Upcoming Encounters Date Type Specialty Care Team Description 10/19/2022 Procedure visit Neurology Marina Winter M.D., M.P.H. [address] [phone] (Wo rk) Scheduled Procedures Name Priority Associated Diagnoses Date/Time LIFT THIGH Excessive And Redundant Skin And Subcutaneous Tissue documented as of this encounter Results CT Abdomen Pelvis with IV Contrast (12/15/2019 4:11 PM SPECIALTY COOK) Anatomical Region Laterality Modality Abdomen, Pelvis, Abdominal RST LOS, N/A Comp uted Tomography, Computed Abdominal ARZ LOS, Abdominal FLA LOS Manjeet ography Specimen (Source) Anatomical Collection Method Collection Time Re ceived Time Location / / Volume Laterality 12/16/2019 7:15 AM SPECIALTY COOK Impressions 12/16/2019 7:18 AM SPECIALTY COOK Tiny fat-containing umbilical hernia. Abdomen and pelvis otherwise negative. Narrative 12/16/2019 7:18 AM SPECIALTY COOK EXAM: ??CT ABDOMEN PELVIS WITH IV CONTRAST [...] as of this encounter Care Teams Director Operations Relationship Specialty Start Date End Date Annemarie Montiel M.D. PCP - General 04/19/17 [address] [place] [address] documented as of this encounter
--- OUTSIDE RECORDS SUMMARY | 2022-09-05 06:09 | XMS_ITS | Encounter Summary ---
:1985 Author Organization [facility] Address [address] [place] [address] Care Team Providers Name Role Phone Annemarie Montiel M.D. Primary Care Provider [phone] Reason for Referral Outpatient (Routine) - Closed Specialty Diagnoses / Procedures Referred By Contact Refer red To Contact Family Medicine Diagnoses Depression Major Recurrent (HCC) Anxiety Generalized Disorder Surgery Bariatric Status Post Annemarie Montiel [facility] SHANNON Fernandez M.D. [address] [place] [address] Referral ID Status Reason Start Date Expiration Date Visits Requ ested Visits Authorized [id number] Closed 07/04/2019 07/03/2020 1 1 Reason for Visit Reason Comments Paperwork Appointment Request (Routine) - Closed Specialty Diagnoses / Procedures Referred By Contact Refer red To Contact Family Medicine Referral ID Status Reason Start Date Expiration Date Visits Requ ested Visits Authorized [id number] Closed 07/01/2019 06/30/2020 1 Encounter Details Date Type Department Care Team Description 07/04/2019 Office Visit Department of Annemarie Song Depression Major Recurrent (HCC) (Primary Dx); Medicine, Porfirio Jaramillo Anxiety Generalized Disorder; Clinic, in [place], [address] Surgery Bariatric Status Post [place], [place] [address] [address] [place], [place] [phone] (Wo rk) [address] [phone] Social History Tobacco Use Types Packs/Day Years [...] How often do you attend adventism or mandaeism Never 07/04/2019 services? 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 - 07/04/2019 4:15 PM CDT [facility] for cognitive therapy OFFICE LOCATION: [address] [place] [address] Sunday through Sunday For appointment: Please leave your name and phone number. If you know the therapist you prefer, leave that name as well. You will receive a call back to schedule an appointment. Available Therapists: PARAMJIT Santizo LMFT Dana Phenix, LMFT Alexandra Early, [facility] Tisha Ochoa, [facility] Azalea Reyes, GENERAL CARGO CLERK, IT SOFTWARE DEVELOPER Heidi Meyer MA, Clinical Counseling documented in this encounter Progress Notes Annemarie Montiel M.D. - 07/04/2019 4:15 PM CDT SUBJECTIVE CHIEF COMPLAINT / REASON FOR VISIT Work note. HISTORY OF PRESENT ILLNESS Maria Alejandra Gomez is a 34 y.o. female who presents to the clinic today for a work note. 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 She is comfortable with 15 hours a week on her work note. She is wondering if she can increase herPaxil to 60 mg. Also, she wants to start a migraine medication. Maria Alejandra notes that the Ethnology Teacher is unsure what to help her with [...] Take 325 mg by mouth daily. ??? xairakiwvoba-Tg-ciyp-minerals (MULTIPLE VITAMIN, WOMENS) tablet Take 1 tablet [...] symptoms PLAN:Medical opinion form is completed for [facility]. Recommended that she establish with therapy and did provide information for [facility]. - PARoxetine (PAXIL) 40 mg tablet; Take [...] on their behalf by Kaity huertas trained certified medical assistant. The creation of this record is based on the scribe's personal observations and the provider's statements to them. This document has been checked and approved by the attending provider. documented in this encounter Plan of Treatment Upcoming Encounters Date Type Specialty Care Team Description 10/19/2022 Procedure visit Neurology Marina Winter M.D., M.P.H. [address] [phone] (Wo rk) Scheduled Procedures Name Priority Associated Diagnoses Date/Time LIFT THIGH Excessive And Redundant Skin And Subcutaneous Tissue Scheduled Referrals Name Type Priority Associated Diagnoses Order S [facility] Family Medicine Outpatient Referral Routine Depression Major [...] as of this encounter Care Teams Sales Contract Administrator Relationship Specialty Start Date End Date Annemarie Montiel M.D. PCP - General 04/19/[address] [phone] documented as of this encounter
--- OUTSIDE RECORDS SUMMARY | 2022-09-05 06:09 | XMS_ITS | Encounter Summary ---
:[address] [facility] Address [address] [place] [address] Care Team Providers Name Role Phone Annemarie Montiel M.D. Primary Care Provider Reason for Visit Reason Comments Consult discuss tummy tuck and arms Outpatient (Routine) - Closed Specialty Diagnoses / Procedures Referred By Contact Refer red To Contact Plastic Surgery Diagnoses Skin Redundancy Annemarie Montiel M.D. [facility] [address] [place] [address] Referral ID Status Reason Start Date Expiration Date Visits Requ ested Visits Authorized [id number] Closed 03/25/2019 03/24/2020 1 1 Encounter Details Date Type Department Care Team Description 04/02/2019 Comprehensive Visit Department of [facility] Abdominal (Primary Dx); Plastic Surgery in [place] Skin Redundancy [place], [place] [address], [address] [phone] Social History Tobacco Use Types Packs/Day Years [...] How often do you attend religious or scientologist Never 07/04/2019 services? 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 [address] [phone] (Wo rk) Scheduled Procedures Name Priority Associated Diagnoses Date/Time LIFT THIGH Excessive And Redundant Skin And Subcutaneous Tissue documented as of this encounter Visit Diagnoses Diagnosis Pannus Abdominal - Primary Skin Redundancy documented in this encounter Additional Health Concerns Assessment Noted Time PHQ-9 Depression Total Score: 11 03/25/2019 1:49 PM CD T documented as of this encounter Care Teams Licensed Insurance Sales Agent Relationship Specialty Start Date End Date Annemarie Montiel M.D. PCP - General 04/19/[address] [phone] documented as of this encounter
--- OUTSIDE RECORDS SUMMARY | 2022-09-05 06:09 | XMS_ITS | Encounter Summary ---
:1985 Author Organization [facility] Address [address] [place] [address] Care Team Providers Name Role Phone Annemarie Montiel M.D. Primary Care Provider [phone] Reason for Visit Auth/Cert Specialty Diagnoses / Procedures Referred By Contact Refer red To Contact Diagnoses Panniculitis Bariatric surgery status Panniculitis [M79.3] Procedures RI EXCISN EXCESS SKIN/TISS ABD PANNICULECTOMY Referral ID Status Reason Start Date Expiration Date Visits Requ ested Visits Authorized [id number] 1 1 Encounter Details Date Type Department Care Team Description 12/16/2019 Surgery RST ROMB MAIN OR Pancho, PANNICULECTOMY, Possible [address] [facility] [place] [address] [address] [place] [address] [place] [address] Social History Tobacco Use Types Packs/Day Years [...] How often do you attend faith or rastafari Never 07/04/2019 services? Do you [...] at Date Recorded Female 10/16/2018 10:53 AM VIAL GAUGER documented as of this encounter Last Filed Vital Signs Vital Sign Reading Time Taken Comments Blood Pressure 117/66 12/16/2019 2:30 PM VIAL GAUGER Pulse 92 12/16/2019 2:30 PM VIAL GAUGER Temperature 36.5 ??C (97.7 ??F) 12/16/2019 2:30 PM VIAL GAUGER Respiratory Rate 21 12/16/2019 2:30 PM VIAL GAUGER Oxygen Saturation 100% 12/16/2019 2:30 PM VIAL GAUGER Inhaled Oxygen Concentration - - Weight 74.5 kg (164 lb 3.9 oz) 12/16/2019 8:35 AM VIAL GAUGER Height 163.5 cm (5' 4.37) 12/16/2019 8:35 AM VIAL GAUGER Body Mass Index 27.87 12/16/2019 8:35 AM VIAL GAUGER documented in this encounter Discharge Summaries Lidia Irby Lexy, ÁNGEL, C.N.P. - 12/17/2019 8:46 AM CST DISCHARGE SUMMARY BRIEF OVERVIEW Discharge Provider: Clare Deleon M.B.B.S. Primary Care Providers: Annemarie Montiel M.D. (General) [address] [phone] Primary Care Provider Primary Care Provider Admission [...] control your pain you may transition to utgo-qhb-julnedf Tylenol for pain relief. Do not take [...] otherwise. Please feel free to call the mental health consultant surgeon's office for details if you do not have these. Please check your portal or call the scheduling office for information regarding your appointment. CONTACT INFORMATION ?? - If you have questions about your appointment schedule, please call [phone]. - During evening or weekend hours, you may contact a member of the Plastic Surgery team by calling the [facility] bed operator at [phone] and ask to speak with the Plastic Surgery resident logging contractor for emergencies. If you have questions about your appointment schedule and you are a hand patient, please call [phone] Sunday through Sunday, 8:00 - 4:30 PM, otherwise call [phone]. For any questions or concerns regarding your care or post-operative instructions, please call , Sunday through Sunday, 8:00 - 4:30 PM. If you experience an urgent issue related to your surgery outside of business hours, please contact the [facility] bed operator at and ask to speak with [...] were provided to the patient and caregiver(s). GAUGER documented in this encounter Discharge Instructions AttachmentsThe following attachments cannot be sent through Care Everywhere. Ondansetron (By mouth, Into the mouth) (Burmese)Laxative, Stimulant Combination (By mouth) (Burmese)Oxycodone, Rapid Release (By mouth) (Burmese)documented in this encounter Medications at Time of [...] mouth 0 at bedtime as needed (sleep). vfeouatyfoju-Ke-azee-mail examiner Take 1 tablet by 0 als [...] Disposition: DC 12/17 Follow up: 12/30 [place] [id number] GAUGER documented in this encounter Nursing Notes Makenna Squires R.N. - 12/17/2019 9:47 AM CST Pt discharged to [facility] this morning. Medications picked up at outpatient pharmacy. IVs removed. All discharge education completed and all questions answered. Vital signs stable. BP 101/58 (BP Location: Left arm;Upper, Patient Position: Sitting) Pulse 78 Temp 37 ??C (Oral) Resp 16 Ht 163.5 cm Wt 74.5 kg LMP 06/08/2017 SpO2 98% No BMI 27.87 kg/m?? Electronically signed by: Makenna Squires R.N. 12/17/19 10:06 AM VIAL GAUGER GAUGER Makenna Squires R.N. - 12/17/2019 9:46 AM CST Shift Goals: Clinical Goals for the Shift: Prepare for DC Identify possible barriers to meeting goals/advancing plan of care: None End of Shift Summary: VSS. Ambulating SBA/independently. Voiding spontaneously. Pt safe and free of falls on shift. Planning to DC to [facility] today. Electronically signed by: Makenna Squires R.N. 12/17/19 9:47 AM VIAL GAUGER GAUGER Carter Betts R.N. - 12/17/2019 6:45 AM CST Shift Goals: Clinical Goals for the Shift: Pain Control Identify possible barriers to meeting goals/advancing plan of care: not alerting staff of pain End of Shift Summary: Pt. Was able to ambulate at the beginning of the shift with standby assistancebefore going to bed. Pt. Was vitally stable overnight and pain was easily controlled. GAUGER documented in this encounter OR Notes Op Note - Jose Rafael Chew M.D. - 12/16/2019 11:30 AM CST FULL OP NOTE Procedure(s): PANNICULECTOMY, Possible Lily de lis. Surgeon(s) and Role: * Clare Deleon M.B.B.SRodrigo - Primary * Jose Rafael Chew M.D. - Nematologist * Sulma Lindsay M.B.BShan, M.S. - Other Mock Up Builder Anesthesia Type General Pre-operative Diagnosis Panniculitis Post-operative [...] horizontal-only incision versus horizontal and vertical component uxyyy-mu-gis incision. We started with the lower incision, [...] abdominal skin flap. We undermined in a [place] tree shape manner up to the xiphoid [...] interrupted 4-0 Monocryl. We then placed two 15-Russian BIANCA drains coming out laterally on her lateral thighs region via trocar and these were secured using3-0 nylon sutures. Prior to final closure we noticed, as noted on the previous CT scan, a tiny fat hernia superior to the umbilicus. This was fixed using interrupted illpob-fq-lyqli 2-0 PDS. Two sutures were placed, and [...] 15 Fr. Size (mm): Size (In): Drain [place] Size (mL): 100 mL Number of Sutures Placed: Removal Reason: Closed/Suction Drain 1 Left;Anterior;Lateral Leg Bulb 15 Fr. (Active) 12/16/19 1301 Leg Placed by External Staff?: Placed by: Dr Deleon Tube Number: 1 Orientation: Left;Anterior;Lateral Drain Tube Type: Bulb Size (Fr): 15 Fr. Size (mm): Size (In): Drain [place] Size (mL): 100 mL Number of Sutures [...] Loss None Implants None Mo Ella Chew GAUGER documented in this encounter Miscellaneous Notes Hospital [...] the patient was discharged from the hospital. GAUGER documented in this encounter Plan of Treatment Upcoming Encounters Date Type Specialty Care Team Description 10/19/2022 Procedure visit Neurology Marina Winter M.D., M.P.H. [address] [facility] [place] [place] [phone] (Wo rk) Scheduled Procedures Name Priority Associated Diagnoses Date/Time LIFT THIGH Excessive And Redundant Skin And Subcutaneous Tissue documented as of this encounter Procedures Procedure Name Priority Date/Time Associated Diagnosis Comme nts CBC WITHOUT Routine 12/17/2019 4:51 Results for this DIFFERENTIAL, B AM VIAL GAUGER procedure ar e in the results section. BASIC METABOLIC PANEL, Routine 12/17/2019 4:51 Re sults for this S/P AM VIAL GAUGER procedure are i n the results section. ADULT OXYGEN THERAPY Routine 12/16/2019 2:23 PM VIAL GAUGER SURGICAL PATHOLOGY, Routine 12/16/2019 11:55 Panniculitis Resu lts for this [facility] AM VIAL GAUGER procedure are i n the results section. PANNICULECTOMY 12/16/2019 10:24 Panniculitis AM VIAL GAUGER documented in this encounter Results (ABNORMAL) Basic Metabolic Panel (12/17/2019 4:51 AM VIAL GAUGER) P athologist Signature Potassium, S 3.9 3.6 - 5.2 12/17/2019 DTL mmol/L 6:00 AM VIAL GAUGER Sodium, S 140 135 - 145 12/17/2019 DTL mmol/L 6:00 AM VIAL GAUGER Chloride, S 102 98 - 107 12/17/2019 DTL mmol/L 6:00 AM VIAL GAUGER Bicarbonate, S 24 22 - 29 12/17/2019 DTL mmol/L 6:00 AM VIAL GAUGER Anion Gap 14 7 - 15 12/17/2019 DTL 6:00 AM VIAL GAUGER BUN (Blood Urea 9 6 - 21 12/17/2019 DTL Nitrogen), S mg/dL 6:00 AM VIAL GAUGER Creatinine 0.63 0.59 - 12/17/2019 DTL 1.04 mg/dL 6:00 AM VIAL GAUGER eGFR-Non >90 >=60 12/17/2019 DTL Black/ mL/min/BSA 6:00 AM VIAL GAUGER Algerian Comment: ----ADDITIONAL INFORMATION---- Estimated GFR calculated using the 2009 CKD_EPI creatinine equation. eGFR-Black/ >90 >=60 mL/min/BSA 2019 6:00 AM VIAL GAUGER DTL Comment: ----ADDITIONAL INFORMATION---- Estimated GFR calculated using the 2009 CKD_EPI creatinine equation. Calcium, Total, S 8.5 (L) 8.6 - 10.0 mg/dL 12/17/2019 6:00 AM VIAL GAUGER DTL Glucose, S 81 70 - 140 mg/dL 12/17/2019 6:00 AM VIAL GAUGER D TL Specimen Anatomical Collection Method Collection Time Receive d Time (Source) Location / / Volume Laterality Blood (Blood, 12/17/2019 4:51 AM 12/17/19 5:02 Venous) VIAL GAUGER AM VIAL GAUGER Clare Murphy LAB BLOOD ADD-ON Performing Organization Address City/[facility] Phon e Number [facility] - [address] [address] [address] [facility] [place] [address] Laboratories[address] (ABNORMAL) CBC without Differential (12/17/2019 4:51 AM VIAL GAUGER) [facility] gist Method Time Signature Hemoglobin 11.5 (L) 11.6 - 12/17/2019 DTL 15.0 g/dL 5:07 AM VIAL GAUGER Hematocrit 33.7 (L) 35.5 - 12/17/2019 DTL 44.9 % 5:07 AM VIAL GAUGER Erythrocytes 3.78 (L) 3.92 - 12/17/2019 DTL 5.13 5:07 AM VIAL GAUGER x10(12)/L MCV 89.2 78.2 - 12/17/2019 DTL 97.9 fL 5:07 AM VIAL GAUGER RBC Distrib Width 12.2 12.2 - 12/17/2019 DTL 16.1 % 5:07 AM VIAL GAUGER Platelet Count 160 157 - 371 12/17/2019 DTL x10(9)/L 5:07 AM VIAL GAUGER Leukocytes 7.5 3.4 - 9.6 12/17/2019 DTL x10(9)/L 5:07 AM VIAL GAUGER Specimen Anatomical Collection Method Collection Time Receive d Time (Source) Location / / Volume Laterality Blood (Blood, 12/17/2019 4:51 AM 12/17/19 5:03 Venous) VIAL GAUGER AM VIAL GAUGER Jose Rafael Chew M.D. LAB BLOOD ADD-ON Performing Organization Address City/[facility] Phon e Number [facility] - [address] [place] [address] Laboratories-[address] Surgical Pathology, Frozen Lab (12/16/2019 11:55 AM VIAL GAUGER) Component Value Ref Test Analysis Performed At [facility] gist Range Method Time Signature 12/16/2019 STMA 5:47 PM VIAL GAUGER Report Randall Banuelos M.D. [phone] 12/16 [facility] [[email or web address]] electronically I verify that I have examined all relevant slides/ma terials 5:47 PM VIAL GAUGER signed by for the specimen(s) and rendered or confirmed the diagnosis. Gross Description A. ??Received fresh labeled panniculus is a 103 0 gram 12/16/2019 STMA aggregate of unremarkable skin and adipose tissue. ??Gross 5:47 PM VIAL GAUGER examination only. ??Grossed by SSF. Interpretation FINAL DIAGNOSIS 12/16/2019 STMA A. ??Skin and soft tissue, panniculus, panniculectomy: ??A 5:47 PM VIAL GAUGER 1030 gram aggregate of unremarkable skin and adipose tissue. Gross examination only. Specimen (Source) Anatomical Collection Method Collection Time Re ceived Time Location / / Volume Laterality Tissue 12/16/2019 11:55 (Panniculus) AM VIAL GAUGER Comment: Please weigh specimen Narrative This result has an attachment that is no t available. Clare Murphy LAB SURG PATH ORDERABLES Performing Organization Address City/State/ZIP Code Phon e Number [address] documented in this encounter Visit Diagnoses Diagnosis Panniculitis - Primary Panniculitis Panniculitis documented in this encounter Admitting Diagnoses Diagnosis Panniculitis documented in this encounter Administered Medications Inactive Administered Medications - up to 3 most recent administrations Medication Order MAR Action Action Date Dose Rate Site acetaminophen tablet 1,000 mg Given 12/17/2019 3:56 AM VIAL GAUGER 1,000 mg (TYLENOL) 1,000 mg, oral, Every 6 hours, First dose on Sun12/16/19 at 1615, Start 6 hours after last dose. Do not exceed 4 grams in 24 hours. Given 12/16/2019 9:34 PM VIAL GAUGER 1,000 mg Given 12/16/2019 5:06 PM VIAL GAUGER 1,000 mg acetaminophen tablet 1,000 mg (TYLENOL) Given 12/16/2019 9:36 AM VIAL GAUGER 1,000 mg 1,000 mg, oral, Once, On Sun12/16/19 at 0930, For 1 dose, Pre-Op bupivacaine liposome (PF) 20 mL, Given 12/16/2019 1:47 PM VIAL GAUGER 40 mL Other bupivacaine 30 mL in sodium chloride (PF) 0.9 % 100 mL injection As needed, Starting on Sun12/16/19 at 1312, Intra-Op Given 12/16/2019 1:12 PM VIAL GAUGER 60 mL Other busPIRone tablet 15 mg (BUSPAR) Given 12/17/2019 8:37 AM VIAL GAUGER 15 mg 15 mg, oral, Daily, First dose on Sun12/17/19 at 0900 celecoxib capsule 400 mg (CeleBREX) Given 12/16/2019 9:38 AM VIAL GAUGER 400 mg 400 mg, oral, Once, On Sun12/16/19 at 0930, For 1 dose, Pre-Op, Preformer Impregnated Fabrics, PreOp cholecalciferol (vitamin D3) tablet Given 12/17/2019 8:37 AM VIAL GAUGER 2,000 Units 2,000 Units 2,000 Units, oral, Daily, First dose on Sun12/17/19 at 0900, cholecalciferol (vitamin D3) orderable was interchanged for cholecalciferol (vitamin D3) tablet/capsule 25 mcg cholecalciferol equivalent to 1000 units cholecalciferol cyanocobalamin tablet 1,000 mcg (VITAMIN Given 12/17/2019 8: 37 AM VIAL GAUGER 1,000 mcg B12) 1,000 mcg, oral, Daily, First dose on Sun12/17/19 at 0900 enoxaparin injection 40 mg Given 12/17/2019 8:37 AM VIAL GAUGER 40 mg Left Upper Arm (LOVENOX) (Back) 40 mg, subcutaneous, Daily, First dose on Sun12/17/19 at 0900 fentaNYL injection 25 mcg (SUBLIMAZE) Given 12/16/2019 2:45 PM VIAL GAUGER 25 mcg 25 mcg, intravenous, Every 2 min PRN, For pain 4 or greater (maximum 100 mcg). If max dose of Fentanyl is reached and if pain is greater than 4, discontinue Fentanyl: give Hydromorphone, Starting on Sun12/16/19 at 1423, PACU (only) ferrous sulfate tablet 65 mg of iron Given 12/17/2019 8:37 AM VIAL GAUGER 65 mg of iron 65 mg of iron, oral, Daily, First dose on Sun12/17/19 at 0900 gabapentin tablet 600 mg (NEURONTIN) Given 12/16/2019 9:37 AM VIAL GAUGER 600 mg 600 mg, oral, Once, On Sun12/16/19 at 0930, For 1 dose, Pre-Op, Preformer Impregnated Fabrics, PreOp gentamicin-polymixin B 20 mg-500,000 Given 12/16/2019 12:33 PM 1 ,000 mL Other Units irrigation (DABS_MODIFIED) VIAL GAUGER irrigation, Once in surgery, OR use only, Starting on Sun12/16/19 at 1020, For 1 dose, Intra-Op, *IRRIGATION ONLY* lactated ringers New Bag 12/16/2019 5:06 PM VIAL GAUGER 100 mL/hr 100 mL/hr 100 mL/hr, intravenous, Continuous, Starting on Sun12/16/19 at 1530 melatonin tablet 5 mg 5 mg, oral, Bedtime PRN, sleep, Starting on Sun 0 at 2122 cqlqccbbbjdg-vpas-QA-Ca-minerals 9 mg Given 12/17/2019 8:[address] 1 tablet iron-400 mcg tablet 1 tablet (THERAPEUTI C-M) 1 tablet, oral, Daily, First dose on Sun12/17/19 at 0900 ondansetron ODT disintegrating tablet 4 mg Given 12/16/2019 9:38 AM VIAL GAUGER 4 mg (ZOFRAN-ODT) 4 mg, sublingual, Once, On Sun12/16/19 at 0930, For 1 dose, Pre-Op, When splitting ODT at bedside, handle with gloves and a pill splitter to prevent moisture contact. oxyCODONE IR tablet 10 mg (ROXICODONE) Given 12/17/2019 9:22 AM VIAL GAUGER 10 mg 10 mg, oral, Every 4 hours PRN, moderate pain or score 4-6 of 10, severe pain or score 7-10 of 10, Starting on Sun12/16/19 at 1525 Given 12/17/2019 3:56 AM VIAL GAUGER 10 mg Given 12/16/2019 11:01 PM VIAL GAUGER 10 mg oxyCODONE IR tablet 5 mg (ROXICODONE) Given 12/16/2019 6:51 PM VIAL GAUGER 5 mg 5 mg, oral, Every 4 hours PRN, mild pain or score 1-3 of 10, Starting on Sun12/16/19 at 1525 PARoxetine tablet 40 mg (PAXIL) Given 12/17/2019 9:22 AM VIAL GAUGER 40 mg 40 mg, oral, Daily, First dose on Sun12/17/19 at 0900 scopolamine base 1 mg Medication Applied 12/16/2019 9:38 AM 1 patch Behind Left Ear over 3 days 1 patch VIAL GAUGER (TRANSDERM SCOP) 1 patch, transdermal, Administer over 72 Hours, Once as needed, nausea, vomiting, Starting on Sun12/16/19 at 0925, For 1 dose, Pre-Op, Contains 1.5 mg to deliver 1 mg/72 hours. sennosides-docusate sodium 8.6-50 mg per Given 12/17/2019 8:37 A M VIAL GAUGER 1 tablet tablet 1 tablet (SENOKOT-S) 1 tablet, oral, 2 times daily, First dose on Sun12/16/19 at 2100, Do not give if patient has diarrhea. Given 12/16/2019 9:34 PM VIAL GAUGER 1 tablet tranexamic acid 3 g in NaCl 0.9% 75 mL Given 12/16/2019 1:12 PM VIAL GAUGER 30 mL Other topical solution 75 mL, topical, Once in surgery, OR use only, Starting on Sun12/16/19 at 1020, For 1 dose, Intra-Op, For topical use ONLY documented in this encounter Active and Recently Administered Medications Times are shown in VIAL GAUGER. Scheduled Medication Order 12/15/2019 12/16/2019 12/17/2019 acetaminophen tablet 1,000 mg (TYLENOL) 1706 (Given - Provider: Dorota Tejeda R.N.)5264 (Given - Provider: Carter Betts R.N.) 0356 (Given - Provider: Carter Betts R.N.) [...] (COMPLETED) 937 (Given - Provider: Mary Hutson RoRdrigoNRodrigo) 400 mg, oral, Once, On Sun12/16/19 at 0930, For 1 dose, Pre- Op, Preformer Impregnated Fabrics, PreOp cholecalciferol (vitamin D3) tablet 2,000 Units [...] 40 mg (LOVENOX) 0837 (Given - Provider: Laurence MendenhallNRodrigo) 40 mg, subcutaneous, Daily, First dose on Sun12/17/19 at 0900 ferrous sulfate tablet 65 mg of iron 0837 (Given - Provider: Laurence MendenhallNRodrigo) 65 mg of iron, oral, Daily, First dose on Sun12/17/19 at 0900 gabapentin tablet 600 mg (NEURONTIN) (COMPLETED) 936 (Given - Provider: Mary Hutson R.N.) 600 mg, oral, Once, On Sun12/16/19 at 0930, For 1 dose, Pre- Op, Preformer Impregnated Fabrics, PreOp iryedvkgurcl-vpxo-IB-Ca-minerals 9 mg ir on-400 mcg tablet 1 [...] (PAXIL) 921 (Given - Provider: Makenna Squires R.N.) 40 mg, oral, Daily, First dose on Sun12/17/19 at 0900 sennosides-docusate sodium 8.6-50 mg per tablet 1 tablet (SE NOKOT-S) 2133 (Given - Provider: Laurence OttoNRodrigo) 0837 (Given - Provider: Makenna Squires R.N.) 1 tablet, oral, 2 times daily, First dos e on Sun12/16/19 at 2100, Do not give if patient has diarrhea. Continuous Medication Order 12/15/2019 12/16/2019 12/17/2019 lactated ringers 1706 (New Bag - Provider: Jerry Tejeda RRodrigoNRodrigo) 100 mL/hr, intravenous, Continuous, Starting on Sun12/16/19 at 1 530 lactated ringers 1658 (Stopped - Provider: Jerry Tejeda RRodrigoN.) 20 mL/hr, intravenous, at 20 mL/hr, Cont [...] injection (CANCELED) 1312 (Given - Provider: Araseli CesarBShan, M.S. - Comment: abdomen)1347 (Given - Provider: [...] 1445 (Given - Provider: Chhaya Terrell R.N., [facility]) 25 mcg, intravenous, Every 2 min PRN, [...] Comment: Pt only wanted to take 5 mg.)2302 (Given - Provider: Carter Betts RRodrigoN.) 0356 (Given - Provider: Carter Betts R.N.)0970 (Given - Provider: Makenna Squires R.N.) 10 mg, oral, Every 4 hours PRN, moderate pain or score 4-6 of 10, severe pain or score 7-10 of 10, Starting on Sun12/16/19 at 1525 oxyCODONE IR tablet 5 mg (ROXICODONE) 18 51 (Given - Provider: Dorota Tjeeda RCiera) 5 mg, oral, Every 4 hours [...] documented as of this encounter Care Teams Associate Professor Of Management Relationship Specialty Start Date End Date Annemarie Montiel M.D. PCP - General 04/19/17 [address] [place] [address] documented as of this encounter
--- OUTSIDE RECORDS SUMMARY | 2022-09-05 06:09 | XMS_ITS | Encounter Summary ---
:1985 Author Organization [facility] Address [address] [place] [address] Care Team Providers Name Role Phone Annemarie Montiel M.D. Primary Care Provider [phone] Reason for Referral Outpatient (Routine) - Closed Specialty Diagnoses / Procedures Referred By Contact Refer red To Contact Plastic Surgery Clare Deleon, [facility] M.B.B.S. [address] [place] [phone] Referral ID Status Reason Start Date Expiration Date Visits Requ ested Visits Authorized [id number] Closed 12/12/2019 12/11/2020 1 1 CTOR WORKERS COMPENSATION Encounter Details Date Type Department Care Team Description 12/12/2019 Orders Only Division of Plastic Surgery Ailin Mir, in [facility] M.S.N., R.N. [address] [place] [phone] Social History Tobacco Use Types Packs/Day [...] How often do you attend taoist or judaism Never 07/04/2019 services? 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 [address] [place], [place] [phone] (Wo rk) Scheduled Procedures [...] documented as of this encounter Care Teams Plunger Shovel Operator Relationship Specialty Start Date End Date Annemarie Montiel M.D. PCP - General 04/19/17 [address] [place] [address] documented as of this encounter
--- OUTSIDE RECORDS SUMMARY | 2022-09-05 06:09 | XMS_ITS | Encounter Summary ---
:1985 Author Organization [facility] Address [address] [place] [address] Care Team Providers Name Role Phone Annemarie Montiel M.D. Primary Care Provider [phone] Reason for Referral Outpatient (Routine) - Closed Specialty Diagnoses / Procedures Referred By Contact Refer red To Contact Diagnoses Depression Major Recurrent (HCC) Anxiety Generalized Disorder Annemarie Montiel M.D. [address] [address] Referral ID Status Reason Start Date Expiration Date Visits Requ ested Visits Authorized [id number] Closed Other 03/25/2019 03/24/2020 1 1 Outpatient (Routine) - Closed Specialty Diagnoses / Procedures Referred By Contact Refer red To Contact Plastic Surgery Diagnoses Skin Redundancy Annemarie Montiel M.D. [facility] [place] [facility] [address] [address] Referral ID Status Reason Start Date Expiration Date Visits Requ ested Visits Authorized [id number] Closed 03/25/2019 03/24/2020 1 1 Reason for Visit Reason Comments Follow-up 6 Weeks for medication revie w Appointment Request (Routine) - Closed Specialty Diagnoses / Procedures Referred By Contact Refer red To Contact Family Medicine Referral ID Status Reason Start Date Expiration Date Visits Requ ested Visits Authorized [id number] Closed 01/17/2019 01/17/2020 1 Encounter Details Date Type Department Care Team Description 03/25/2019 Office Visit Department of Family ClubAnnemarie lainez, Depression Major Recurrent (HCC) (Primary Dx); MedicinePorfirio M.D. Anxiety Generalized Disorder; Clinic, in [place], [address] Skin Redundancy; [place], [place] Surgery Bariatric Status Pos t [address] [address] [place], [place] [phone] (Wo rk) [address] [phone] Social History Tobacco Use Types Packs/Day Years [...] How often do you attend episcopalian or presybeterian Never 07/04/2019 services? 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 - 03/25/2019 2:[address] Harris Chavez to discuss excess skin For cognitive therapy Dr [facility]: Doctor in [place], [place] Address: [address], [place] [address] documented in this encounter Progress Notes Annemarie [...] her. Maria Alejandra will be starting at [employer] tomorrow. She will only been working limited hours since she is still struggling with her multiple health concerns and other stressors. She is requesting an updated letter in support of limited work hours. The patient underwent bariatric surgery while she was living in [place] in August 2018. She has lost a [...] Take 325 mg by mouth daily. ??? ohcitpvqjyxv-Er-kacy-minerals (MULTIPLE VITAMIN, WOMENS) tablet Take 1 tablet [...] PLAN: Encouraged her to establish with a training executive familiar with bariatric surgery. This document serves as a record of services personally performed by Annemarie Montiel MD. It was created on their behalf by Iman huertas trained medical and scientific illustrator. The creation of this record is based on the scribe's personal observations and the provider's statements to them. This document has been checked and approved by the attending provider. documented in this encounter Plan of Treatment Upcoming Encounters Date Type Specialty Care Team Description 10/19/2022 Procedure visit Neurology Marina Winter M.D., M.P.H. [address], [place] [phone] (Wo rk) Scheduled [...] documented as of this encounter Care Teams Electronic Calibration Technician Relationship Specialty Start Date End Date Annemarie Montiel M.D. PCP - General 04/19/172[address] [address] documented as of this encounter
--- OUTSIDE RECORDS SUMMARY | 2022-09-05 06:09 | XMS_ITS | Encounter Summary ---
:1985 Author Organization [facility] Address [address] [place] [address] Care Team Providers Name Role Phone Annemarie Montiel M.D. Primary Care Provider [phone] Reason for Visit Reason Onset Date Comments Appointment 02/26/2019 Encounter Details Date Type Department Care Team Description 02/26/2019 Clinical Communication Department of Maisha Song, Appointment Medicine, Porfirio Jaramillo [facility], [facility] [address] [place], [place] [address] [place] [address] [place], [place] [phone] (Wo rk) [address] [phone] Social History Tobacco Use Types Packs/Day Years [...] How often do you attend sikh or yazidism Never 07/04/2019 services? 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 [address] [phone] (Wo rk) Scheduled Procedures Name Priority Associated Diagnoses Date/Time LIFT THIGH Excessive And Redundant Skin And Subcutaneous Tissue documented as of this encounter Visit Diagnoses Not on filedocumented in this encounter Additional Health Concerns Assessment Noted Time PHQ-9 Depression Total Score: 13 01/16/2019 3:01 PM CD T documented as of this encounter Care Teams Help Desk Operator Relationship Specialty Start Date End Date Annemarie Montiel M.D. PCP - General 04/19/[address] [address] documented as of this encounter
--- OUTSIDE RECORDS SUMMARY | 2022-09-05 06:09 | XMS_ITS | Encounter Summary ---
:1985 Author Organization [facility] Address [address] [place] [address] Care Team Providers Name Role Phone Annemarie Montiel M.D. Primary Care Provider [phone] Encounter Details Date Type Department Care [...] How often do you attend congregational or latter day Never 07/04/2019 services? 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 [address] [place] [phone] (Wo rk) Scheduled Procedures Name [...] documented as of this encounter Care Teams Lithograph Designer Relationship Specialty Start Date End Date Annemarie Montiel M.D. PCP - General 04/19/17 [address] [place] [phone] documented as of this encounter
--- OUTSIDE RECORDS SUMMARY | 2022-09-05 06:09 | XMS_ITS | Encounter Summary ---
:1985 Author Organization [facility] Address [address] [place] [address] Care Team Providers Name Role Phone Annemarie Montiel M.D. Primary Care Provider [phone] Encounter Details Date Type Department Care Team Description 01/17/2019 Clinical Communication Department of Maisha Song, MedicinePorfirio M.D. [facility], in [facility] [address] [place], [place] [address] [place] [address] [place], [place] [phone] (Wo rk) [address] [phone] Social History Tobacco Use Types Packs/Day Years [...] How often do you attend shinto or buddhism Never 07/04/2019 services? 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 [address] [place], [place] [phone] (Wo rk) Scheduled Procedures Name Priority Associated Diagnoses Date/Time LIFT THIGH Excessive And Redundant Skin And Subcutaneous Tissue documented as of this encounter Visit Diagnoses Not on filedocumented in this encounter Additional Health Concerns Assessment Noted Time PHQ-9 Depression Total Score: 13 01/16/2019 3:01 PM CD T documented as of this encounter Care Teams Fish Conservationist Relationship Specialty Start Date End Date Annemarie Montiel M.D. PCP - General 04/19/172[address] [place] [address] documented as of this encounter
--- OUTSIDE RECORDS SUMMARY | 2022-09-05 06:09 | XMS_ITS | Encounter Summary ---
:1985 Author Organization [facility] Address [address] [place] [address] Care Team Providers Name Role Phone Anenmarie Montiel M.D. Primary Care Provider [phone] Reason for Visit Reason Onset Date Comments Medical Form 10/16/2019 Encounter Details Date Type Department Care Team Description 10/16/2019 Clinical Communication Department of Maisha Song Medical Form MedicinePorfirio M.D. [facility], [facility] [place], [place] [address] [place], [place] [phone] [address] (Work) [phone] Social History Tobacco Use Types Packs/Day Years [...] How often do you attend samaritan or jewish Never 07/04/2019 services? 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 - 10/28/2019 7:56 AM ACCOUNT PROCESSOR Form completed and will route back to HIM today. Pt has been working, so I did increase workability to 20 hrs per week, she may do more if she feels able. Please have the patient sign the form(page 1) before we fax it or she can also pick it up if she prefers. Thank you. UNT PROCESSOR Telephone Encounter - Annemarie Montiel M.D. - 10/24/2019 6:33 AM ACCOUNT PROCESSOR Noted. I will watch for the form to return from HIM UNT PROCESSOR Telephone Encounter - Oliva Wright C.MSandra - 10/21/2019 11:03 AM ACCOUNT PROCESSOR Patient has been notified that we received the medical form and that it has been sent to HIM to address. UNT PROCESSOR Telephone Encounter - Oliva Wright C.MSandra - 10/21/2019 11:01 AM ACCOUNT PROCESSOR Medical form was sent to HIM to address. Will let the patient know when completed. UNT PROCESSOR Telephone Encounter - Nicki Newman - 10/21/2019 10:55 AM CST Patient is calling in and is wondering about the status of the medical form she is needing. Please call patient back. UNT PROCESSOR Telephone Encounter - Nuris Cloud LRodrigoP.N. - 10/20/2019 11:34 AM ACCOUNT PROCESSOR Medical opinion form in in Dr. Montiel's box to do her part. Patient needs to finish the rest before faxing. UNT PROCESSOR Telephone Encounter - Kaci Tinoco - 10/16/2019 8:40 AM CST Reason for Communication: Patient is calling in requesting an updated medical opinion form from Dr. Montiel. Current Can Nursing/Provider leave a detailed message: Action Needed: Please review and advise. Name of Medication (if relevant): UNT PROCESSOR documented in this encounter Plan of Treatment Upcoming Encounters Date Type Specialty Care Team Description 10/19/2022 Procedure visit Neurology Marina Winter M.D., M.P.H. [address] [place], [place] [phone] (Wo rk) Scheduled Procedures Name Priority Associated Diagnoses Date/Time LIFT THIGH Excessive And Redundant Skin And Subcutaneous Tissue documented as of this encounter Visit Diagnoses Not on filedocumented in this encounter Additional Health Concerns Assessment Noted Time PHQ-9 Depression Total Score: 19 10/09/2019 11:[address] documented as of this encounter Care Teams Staff Mine Warfare Officer Relationship Specialty Start Date End Date Annemarie Montiel M.D. PCP - General 04/19/17 [address] [address] documented as of this encounter
--- OUTSIDE RECORDS SUMMARY | 2022-09-05 06:09 | XMS_ITS | Encounter Summary ---
:1985 Author Organization [facility] Address [address] [place] [address] Care Team Providers Name Role Phone Annemarie Montiel M.D. Primary Care Provider [phone] Reason for Referral MRI/CAT/PET Scan (Routine) - Closed Specialty Diagnoses / Procedures Referred By Contact Refer red To Contact Radiology Diagnoses [facility] Procedures CT Abdomen Pelvis with IV Contrast [facility] [address] [place] [phone] Referral ID Status Reason Start Date Expiration Date Visits Requ ested Visits Authorized [id number] Closed 12/15/2019 12/14/2020 1 1 COUNSELOR Reason for Visit MRI/CAT/PET Scan (Routine) - Closed Specialty Diagnoses / Procedures Referred By Contact Refer red To Contact Radiology Diagnoses [facility] Procedures CT Abdomen Pelvis with IV Contrast [facility] [address] [place] [phone] Referral ID Status Reason Start Date Expiration Date Visits Requ ested Visits Authorized [id number] Closed 12/15/2019 12/14/2020 1 1 Encounter Details Date Type Department Care Team Description 12/15/2019 Hospital Encounter Department of Radiology, Donnie Oliveros [facility], in [place] Sparks[place]. SRodrigo [place], [place] [address] [place] [address] [address] [place], [place] [phone] Social History Tobacco Use Types Packs/Day Years [...] How often do you attend worship or holiness Never 07/04/2019 services? 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 wxlppmrbmkku-Ep-tjrs-min Take 1 tablet by 0 erals (MULTIPLE [...] Procedure visit Neurology Marina Winter M.D., M.P.H. [address] [phone] (Wo rk) Scheduled Procedures Name Priority Associated Diagnoses Date/Time LIFT THIGH Excessive And Redundant Skin And Subcutaneous Tissue documented as of this encounter Procedures Procedure Name Priority Date/Time Associated Comments Diagnosis CT ABDOMEN PELVIS RAD - Routine 12/15/2019 4:11 Panniculitis Result s for this WITH IV CONTRAST (most inpatients PM PET COUNSELOR procedu re are in and all the results outpatients) section. documented in this encounter Results CT Abdomen Pelvis with IV Contrast (12/15/2019 4:11 PM PET COUNSELOR) Anatomical Region Laterality Modality Abdomen, Pelvis, Abdominal RST LOS, N/A Comp uted Tomography, Computed Abdominal ARZ LOS, Abdominal FLA LOS Manjeet ography Specimen (Source) Anatomical Collection Method Collection Time Re ceived Time Location / / Volume Laterality 12/16/2019 7:15 AM PET COUNSELOR Impressions 12/16/2019 7:18 AM PET COUNSELOR Tiny fat-containing umbilical hernia. Abdomen and pelvis otherwise negative. Narrative 12/16/2019 7:18 AM PET COUNSELOR EXAM: ??CT ABDOMEN PELVIS WITH IV CONTRAST [...] iohexol (OMNIPAQUE) dilution Given 12/15/2019 4:05 PM PET COUNSELOR 9,000 mg solution 9,000 mg iodine/1,000 mL water 9,000 mg, oral, Once in imaging, contrast, Starting on Sun12/15/19 at 1522, For 1 dose, Imaging Protocol Orders, Mix iohexol 300 (Omnipaque?? 300) 30 mL with 970 mL water for a total volume of 1,000 mLs. Patient to drink mixture in 40 minutes. iohexol 300 mg iodine/mL solution 1-200 mL Given 12/15/2019 4:06 PM PET COUNSELOR 150 mL (OMNIPAQUE) 1-200 mL, intravenous, Once in imaging, contrast, Starting on Sun12/15/19 at 1522, For 1 dose, Imaging Protocol Orders, Dose per Radiant Medication Guidelines sodium chloride (PF) 0.9 % injection 1-1 00 mL Given 12/15/2019 4:07 PM PET COUNSELOR 47 mL 1-100 mL, intravenous, Once, On Sun12/15/19 at 1530, For 1 dose, Imaging Protocol Orders documented in this encounter Additional Health Concerns Assessment Noted Time PHQ-9 Depression Total Score: 19 10/09/2019 11:[address] documented as of this encounter Care Teams Subcontract Manager Relationship Specialty Start Date End Date Annemarie Montiel M.D. PCP - General 04/19/[address] [place] [phone] documented as of this encounter
--- OUTSIDE RECORDS SUMMARY | 2022-09-05 06:09 | XMS_ITS | Encounter Summary ---
:1985 Author Organization [facility] Address [address] [place] [address] Care Team Providers Name Role Phone Annemarie Montiel M.D. Primary Care Provider [phone] Reason for Visit Reason Comments Headache Encounter Details Date Type Department Care Team Description 03/05/2019 - Emergency [facility] Headache (Primary Dx) 03/06/2019 [address] [place] [phone] Social History Tobacco Use Types Packs/Day [...] How often do you attend samaritan or buddhist Never 07/04/2019 services? 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 [address] [phone] (Wo rk) Scheduled Procedures Name Priority Associated Diagnoses Date/Time LIFT THIGH Excessive And Redundant Skin And Subcutaneous Tissue documented as of this encounter Visit Diagnoses Diagnosis Headache Unspecified - Primary documented in this encounter Additional Health Concerns Assessment Noted Time PHQ-9 Depression Total Score: 13 01/16/2019 3:01 PM CD T documented as of this encounter Care Teams Hall Coordinator Relationship Specialty Start Date End Date Annemarie Montiel M.D. PCP - General 04/19/[address] [phone] documented as of this encounter
--- OUTSIDE RECORDS SUMMARY | 2022-09-05 06:09 | XMS_ITS | Encounter Summary ---
:1985 Author Organization [facility] Address [address] [place] [address] Care Team Providers Name Role Phone Annemarie Montiel M.D. Primary Care Provider [phone] Encounter Details Date Type Department Care Team Description 11/20/2019 Orders Only Division of Plastic Surgery Jeffry Chew, in [facility] jeevan Jaramillo [address] [place] [address] [place], [place] [phone] (Wo rk) Social History Tobacco Use Types [...] How often do you attend samaritan or synagogue Never 07/04/2019 services? 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 [address] [place], [place] [phone] (Wo rk) Scheduled Procedures Name Priority Associated Diagnoses Date/Time LIFT THIGH Excessive And Redundant Skin And Subcutaneous Tissue documented as of this encounter Visit Diagnoses Not on filedocumented in this encounter Additional Health Concerns Assessment Noted Time PHQ-9 Depression Total Score: 19 10/09/2019 11:[address] documented as of this encounter Care Teams Potato Pancake Frier Relationship Specialty Start Date End Date Annemarie Montiel M.D. PCP - General 04/19/[address] [address] documented as of this encounter
--- OUTSIDE RECORDS SUMMARY | 2022-09-05 06:09 | XMS_ITS | Encounter Summary ---
:1985 Author Organization [facility] Address [address] [place] [address] Care Team Providers Name Role Phone Annemarie Montiel M.D. Primary Care Provider [phone] Reason for Visit Reason Comments Follow-up Depression Anxiety Weight Loss Outpatient (Routine) - Closed Specialty Diagnoses / Procedures Referred By Contact Refer red To Contact Family Medicine Annemarie Montiel M.D. [facility] Region [address] [place] [address] Referral ID Status Reason Start Date Expiration Date Visits Requ ested Visits Authorized [id number] Closed 11/20/2018 11/20/2019 1 1 Encounter Details Date Type Department Care Team Description 01/16/2019 Office Visit Department of Annemarie Song, Depression Major Recurrent (HCC) (Primary Dx); Porfirio Valdes M.D. Anxiety Generalized Disorder; Clinic, in [place], [address] Surgery Bariatric Status Post; [place], [place] Deficiency Vitamin D [address] [place] [address] [place], [place] [phone] (Wo rk) [address] [phone] Social History Tobacco Use Types Packs/Day Years [...] How often do you attend scientologist or lutheran Never 07/04/2019 services? 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 - 01/16/2019 4:00 PM CDT [facility] OFFICE LOCATION: [address] [place] [address] Sunday through Sunday For appointment: documented in [...] - Medical opinion form is completed for [facility]. Given her degree of depression at this time, she is unable to work. Goal to return to work by March 05. Recommended that she establish with therapy and did provide information for [facility]. She will followup in 4-6 weeks [...] on their behalf by April huertas trained auditor medical claims. The creation of this record is based on the scribe's personal observations and the provider's statements to them. This document has been latricia cked and approved by the attending provider. documented in this encounter Plan of Treatment Upcoming Encounters Date Type Specialty Care Team Description 10/19/2022 Procedure visit Neurology Marina Winter M.D., M.P.H. [address] [place], [place] [phone] (Wo rk) Scheduled Procedures [...] documented as of this encounter Care Teams Event Executive Relationship Specialty Start Date End Date Annemarie Montiel M.D. PCP - General 04/19/17 [address] [place] [address] documented as of this encounter
--- OUTSIDE RECORDS SUMMARY | 2022-09-05 06:09 | XMS_ITS | Encounter Summary ---
:1985 Author Organization [facility] Address [address] [place] [address] Care Team Providers Name Role Phone Annemarie Montiel M.D. Primary Care Provider [phone] Reason for Referral Outpatient (Routine) - Closed Specialty Diagnoses / Procedures Referred By Contact Refer red To Contact Plastic Surgery Diagnoses Surgery Bariatric Status Post Panniculitis Annemarie Montiel M.D. [facility] [address] [place] [address] Referral ID Status Reason Start Date Expiration Date Visits Requ ested Visits Authorized [id number] Closed 10/09/2019 10/08/2020 1 1 RVISING BAILIFF Reason for Visit Reason Comments Anxiety Depression Follow-up bariatric surgery Outpatient (Routine) - Closed Specialty Diagnoses / Procedures Referred By Contact Refer red To Contact Family Medicine Diagnoses Depression Major Recurrent (HCC) Anxiety Generalized Disorder Surgery Bariatric Status Post [facility] [address] [place] [address] Referral ID Status Reason Start Date Expiration Date Visits Requ ested Visits Authorized [id number] Closed 07/04/2019 07/03/2020 1 1 Encounter Details Date Type Department Care Team Description 10/09/2019 Office Visit Department of Annemarie Song Depression Major Recurrent (HCC) (Primary Dx); Porfirio Valdes M.D. 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 - 10/09/2019 11:00 AM CST SUBJECTIVE CHIEF COMPLAINT / REASON FOR VISIT Depression and anxiety, post bariatric surgery HISTORY OF PRESENT ILLNESS Maria Alejandra Gomez is a 34 y.o. female who presents to the clinic today for depression and anxiety,post bariatric surgery. At her last visit on 07/04/2019 I recommended she start therapy at [facility]. Continue on Paxil. I also had started her on sodium chloride 1 g tablets to help with lightheadedness and electrolyte balance. Encouraged her to eat more bananas to help increase potassium. Since then that patient notes that she has been doing better. She is currently living in [place] and has been consistently working. Patient notes [...] Prescription Cocunut oil 1000mg tablet daily ??? lztfdynndlxn-Ri-cfjn-minerals (MULTIPLE VITAMIN, WOMENS) tablet Take 1 tablet [...] Surgery - General consult (clinic); Future, requested [facility] for a second opinion to determine [...] was created on their behalf by Laurie huertas trained medical accountant. The creation of this record is based on the scribe's personal observations and the provider's statements to them. This document has been latricia cked and approved by the attending provider. RVISING BAILIFF documented in this encounter Plan of Treatment Upcoming Encounters Date Type Specialty Care Team Description 10/19/2022 Procedure visit Neurology Marina Winter M.D., M.P.H. [address] [phone] (Wo rk) Scheduled Procedures [...] as of this encounter Care Teams Electronic Systems Technician Relationship Specialty Start Date End Date Annemarie Montiel M.D. PCP - General 04/19/[address] [place] [address] documented as of this encounter
--- OUTSIDE RECORDS SUMMARY | 2022-09-05 06:09 | XMS_ITS | Encounter Summary ---
:1985 Author Organization [facility] Address [address] [place] [address] Care Team Providers Name Role Phone Annemarie Montiel M.D. Primary Care Provider [phone] Reason for Visit Reason Onset Date Comments Depression 07/28/2019 PHQ9 Follow up - 2nd Attempt Encounter Details Date Type Department Care Team Description 07/28/2019 Clinical Department of Annemarie Montiel Depression (PHQ9 Communication Family MedicineNadia M.D. Follow up - 2nd [facility], [address] Attempt) in [facility] [phone] [phone] [place], [place] (Work) [address] Social History Tobacco Use [...] How often do you attend muslim or gnosticist Never 07/04/2019 services? 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 documented in this encounter Plan of Treatment Upcoming Encounters Date Type Specialty Care Team Description 10/19/2022 Procedure visit Neurology Marina Winter M.D., M.P.H. [address], [place] [phone] (Wo rk) Scheduled Procedures Name Priority Associated Diagnoses Date/Time LIFT THIGH Excessive And Redundant Skin And Subcutaneous Tissue documented as of this encounter Visit Diagnoses Not on filedocumented in this encounter Additional Health Concerns Assessment Noted Time PHQ-9 Depression Total Score: 11 03/25/2019 1:49 PM CD T documented as of this encounter Care Teams Abrasive Worker Relationship Specialty Start Date End Date Annemarie Montiel M.D. PCP - General 04/19/[address] [place] [phone] documented as of this encounter
--- OUTSIDE RECORDS SUMMARY | 2022-09-05 06:09 | XMS_ITS | Encounter Summary ---
:1985 Author Organization [facility] Address [address] [place] [address] Care Team Providers Name Role Phone Annemarie Montiel M.D. Primary Care Provider [phone] Encounter Details Date Type Department Care Team Description 07/19/2019 Orders Only [facility] - Annemarie Ramirez M.D. [address] [facility], [facility] [address] [place] [address] [facility] GRABIEL SHAH [address] [phone] Social History Tobacco Use Types Packs/Day Years [...] How often do you attend hindu or jainism Never 07/04/2019 services? 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 [address] [place], [place] [phone] (Wo rk) Scheduled Procedures Name Priority Associated Diagnoses Date/Time LIFT THIGH Excessive And Redundant Skin And Subcutaneous Tissue documented as of this encounter Visit Diagnoses Not on filedocumented in this encounter Additional Health Concerns Assessment Noted Time PHQ-9 Depression Total Score: 11 03/25/2019 1:49 PM CD T documented as of this encounter Care Teams Wind Tunnel Mechanic Relationship Specialty Start Date End Date Annemarie Montiel M.D. PCP - General 04/19/[address] [place] [address] documented as of this encounter
--- OUTSIDE RECORDS SUMMARY | 2022-09-05 06:09 | XMS_ITS | Encounter Summary ---
:1985 Author Organization [facility] Address [address] [place] [address] Care Team Providers Name Role Phone Annemarie Montiel M.D. Primary Care Provider [phone] Reason for Referral Outpatient (Routine) - Closed Specialty Diagnoses / Procedures Referred By Contact Refer red To Contact Plastic Surgery [facility], [facility] M.B.B.S. 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 [address] [place] [phone] Social History Tobacco Use Types Packs/Day [...] How often do you attend moravian or hinduism Never 07/04/2019 services? 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 [address] [place], [place] [phone] (Wo rk) Scheduled Procedures [...] documented as of this encounter Care Teams Generator Operator Relationship Specialty Start Date End Date Annemarie Montiel M.D. PCP - General 04/19/17 [address] [place] [phone] documented as of this encounter
--- OUTSIDE RECORDS SUMMARY | 2022-09-05 06:10 | XMS_ITS | Encounter Summary ---
:1985 Author Organization [facility] Address [address] [place] [address] Care Team Providers Name Role Phone Annemarie Montiel M.D. Primary Care Provider [phone] Encounter Details Date Type Department Care Team Description 10/30/2018 Clinical Support Department of Yuliana Montiel M.D. [address] [place] [address] [facility], LD [address] [place] [phone] Status Post [place], [place] [address] [place] [address] Social History Tobacco Use Types [...] How often do you attend jain or shinto Never 07/04/2019 services? 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 documented as of this encounter Last Filed Vital Signs Vital Sign Reading Time Taken Comments Blood Pressure - - Pulse - - Temperature - - Respiratory Rate - - Oxygen Saturation - - Inhaled Oxygen Concentration - - Weight 104 kg (230 lb 6.1 oz) 10/30/2018 1:25 PM HISTOTECHNOLOGIST SUPERVISOR Height 167.5 cm (5' 5.95) 10/31/2018 8:59 AM HISTOTECHNOLOGIST SUPERVISOR Body Mass Index 37.25 10/30/2018 1:25 PM HISTOTECHNOLOGIST SUPERVISOR documented in this encounter Patient Instructions Patient InstructionsMaria Elena Smith RDN, LD - 10/30/2018 1:30 PM HISTOTECHNOLOGIST SUPERVISOR 1.) Look into Breakfast Essentials light start (Canation instant breakfast alternative) for meal replacement option, Boost (Calorie smart) and/or Slim Fast Original ( any flavor) 2.) Try making smoothies with yogurt & fruit 3.) Aim for 90-100 grams of carb per day, ideally 30 grams/day 4.) Flintstones complete multivitamin- recommend 2 tablets per day 5.) Could consider B-complex over-counter supplement as well OTECHNOLOGIST SUPERVISOR documented in this encounter Progress Notes Maria Elena Smith RDN, LD - 10/30/2018 1:30 PM CST REASON FOR VISIT: Medical nutrition therapy initial visit for s/p bariatric surgery. Referred by: Annemarie Montiel M.D. PRESENT FOR VISIT: Patient was seen today for nutrition education related to s/p gastric sleeve which was on on 07/23/18 in [place]. NUTRITION ASSESSMENT: She reports she is not [...] frustration with guidelines she was provided in [place] and states she was told she shouldn't [...] Time spent with patient (minutes): 45 Minutes OTECHNOLOGIST SUPERVISOR documented in this encounter Plan of Treatment Upcoming Encounters Date Type Specialty Care Team Description 10/19/2022 Procedure visit Neurology Marina Winter M.D., M.P.H. [address] [phone] (Wo rk) Scheduled Procedures Name Priority Associated Diagnoses Date/Time LIFT THIGH Excessive And Redundant Skin And Subcutaneous Tissue documented as of this encounter Visit Diagnoses Diagnosis Surgery Bariatric Status Post documented in this encounter Additional Health Concerns Assessment Noted Time PHQ-9 Depression Total Score: 15 10/16/2018 11:[address] documented as of this encounter Care Teams Master Planner Relationship Specialty Start Date End Date Annemarie Montiel M.D. PCP - General 04/19/17 [address] [place] [phone] documented as of this encounter
--- OUTSIDE RECORDS SUMMARY | 2022-09-05 06:10 | XMS_ITS | Encounter Summary ---
:1985 Author Organization [facility] Address [address] [place] [address] Care Team Providers Name Role Phone Annemarie Montiel M.D. Primary Care Provider [phone] Encounter Details Date Type Department Care Team Description 10/08/2017 Abstract Department of Family Medicine, Provider, Historical [facility], in [place], [place] [address] [place] [address] [facility] [phone] Social History Tobacco Use Types Packs/Day Years [...] How often do you attend gnosticism or uatsdin Never 07/04/2019 services? 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 [address] [phone] (Wo rk) Scheduled Procedures Name Priority Associated Diagnoses Date/Time LIFT THIGH Excessive And Redundant Skin And Subcutaneous Tissue documented as of this encounter Visit Diagnoses Not on filedocumented in this encounter Additional Health Concerns Assessment Noted Time PHQ-9 Depression Total Score: 13 08/21/2017 12:55 PM C DT documented as of this encounter Care Teams Lean Manufacturing Leader Relationship Specialty Start Date End Date Annemarie Montiel M.D. PCP - General 04/19/[address] [phone] documented as of this encounter
--- OUTSIDE RECORDS SUMMARY | 2022-09-05 06:10 | XMS_ITS | Encounter Summary ---
:1985 Author Organization [facility] Address [address] [place] [address] Care Team Providers Name Role Phone Annemarie Montiel M.D. Primary Care Provider [phone] Reason for Visit Reason Comments Med Refill Encounter Details Date Type Department Care Team Description 03/26/2018 Refill Department of Yenifer Song M.D. Med Refill Medicine, [facility], [address] [place] [address] [address] [place] [address] [facility] [phone] Social History Tobacco Use Types Packs/Day Years [...] How often do you attend sikh or gnosticist Never 07/04/2019 services? 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 [address] [place], [place] [phone] (Wo rk) Scheduled Procedures Name Priority Associated Diagnoses Date/Time LIFT THIGH Excessive And Redundant Skin And Subcutaneous Tissue documented as of this encounter Visit Diagnoses Not on filedocumented in this encounter Additional Health Concerns Assessment Noted Time PHQ-9 Depression Total Score: 13 08/21/2017 12:55 PM C DT documented as of this encounter Care Teams Power Transformer Assembler Relationship Specialty Start Date End Date Annemarie Montiel M.D. PCP - General 04/19/[address] [place] [address] documented as of this encounter
--- OUTSIDE RECORDS SUMMARY | 2022-09-05 06:10 | XMS_ITS | Encounter Summary ---
:1985 Author Organization [facility] Address [address] [place] [address] Care Team Providers Name Role Phone Annemarie Montiel M.D. Primary Care Provider [phone] Reason for Visit Reason Comments Med Refill Encounter Details Date Type Department Care Team Description 03/26/2018 Refill Department of Yenifer Song M.D. Med Refill Medicine, [facility], in [address] [place], [place] [address] [address] [place] [address] [phone] Social History Tobacco Use Types Packs/Day Years [...] How often do you attend moravian or oriental orthodox Never 07/04/2019 services? 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 - 03/29/2018 11:44 AM CDT Rx pending documented in this encounter Plan of Treatment Upcoming Encounters Date Type Specialty Care Team Description 10/19/2022 Procedure visit Neurology Marina Winter M.D., M.P.H. [address] [place], [place] [phone] (Wo rk) Scheduled Procedures Name Priority Associated Diagnoses Date/Time LIFT THIGH Excessive And Redundant Skin And Subcutaneous Tissue documented as of this encounter Visit Diagnoses Not on filedocumented in this encounter Additional Health Concerns Assessment Noted Time PHQ-9 Depression Total Score: 13 08/21/2017 12:55 PM C DT documented as of this encounter Care Teams Blend Technician Relationship Specialty Start Date End Date Annemarie Montiel M.D. PCP - General 04/19/17 [address], [place] [address] documented as of this encounter
--- OUTSIDE RECORDS SUMMARY | 2022-09-05 06:10 | XMS_ITS | Encounter Summary ---
:1985 Author Organization [facility] Address [address] [place] [address] Care Team Providers Name Role Phone Annemarie Montiel M.D. Primary Care Provider [phone] Encounter Details Date Type Department Care Team Description 11/25/2018 Orders Only Department of Annemarie Song, Surgery Bariatric Status Post (Primary Dx); MedicinePorfirio M.D. Hypokalemia Clinic, in [facility] [address] [place], [place] [address] [address] [place], [place] [phone] (Wo rk) [address] [phone] Social History Tobacco Use Types Packs/Day Years [...] How often do you attend hinduism or anabaptism Never 07/04/2019 services? 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 - 11/25/2018 4:22 PM FRUIT OR NUT CROPS FARM MANAGER Associated Problem(s): Hypokalemia Related to bariatric surgery T OR NUT CROPS FARM MANAGER documented in this encounter Plan of Treatment Upcoming Encounters Date Type Specialty Care Team Description 10/19/2022 Procedure visit Neurology Marina Winter M.D., M.P.H. [address], [place] [phone] (Wo rk) Scheduled Procedures Name Priority Associated Diagnoses Date/Time LIFT THIGH Excessive And Redundant Skin And Subcutaneous Tissue documented as of this encounter Results Potassium (01/16/2019 2:54 PM CDT) athologist Signature Potassium, S 4.5 3.6 - 5.2 01/16/2019 [facility] mmol/L 4:00 PM CDT [facility] Specimen Anatomical Collection Method Collection Time Receive d Time (Source) Location / / Volume Laterality Blood (Blood, 01/16/2019 2:54 PM 01/17/20 19 2:58 Venous) CDT PM CDT Annemarie Montiel M.D. LAB BLOOD ADD-ON Performing Organization Address City/State/ZIP Code Phon e Number [facility] [address] [place] [address] LAB documented in this encounter Visit Diagnoses Diagnosis Surgery Bariatric Status Post - Primary Hypokalemia documented in this encounter Additional Health Concerns Assessment Noted Time PHQ-9 Depression Total Score: 18 11/01/2018 8:11 AM CS T documented as of this encounter Care Teams X Ray Operator Relationship Specialty Start Date End Date Annemarie Montiel M.D. PCP - General 04/19/[address], [place] [phone] documented as of this encounter
--- OUTSIDE RECORDS SUMMARY | 2022-09-05 06:10 | XMS_ITS | Encounter Summary ---
:1985 Author Organization [facility] Address [address] [place] [address] Care Team Providers Name Role Phone Annemarie Montiel M.D. Primary Care Provider [phone] Reason for Visit Reason Comments Migraine Encounter Details Date Type Department Care Team Description 10/11/2017 - Emergency [facility] Migraine Headache 10/12/[address] (Primary Dx) [place] [address] Social History Tobacco Use Types Packs/Day [...] How often do you attend holiness or scientologist Never 07/04/2019 services? 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 [address] [place] [phone] (Wo rk) Scheduled Procedures Name Priority Associated Diagnoses Date/Time LIFT THIGH Excessive And Redundant Skin And Subcutaneous Tissue documented as of this encounter Visit Diagnoses Diagnosis Migraine Headache - Primary documented in this encounter Additional Health Concerns Assessment Noted Time PHQ-9 Depression Total Score: 13 08/21/2017 12:55 PM C DT documented as of this encounter Care Teams Lathe Tender Relationship Specialty Start Date End Date Annemarie Montiel M.D. PCP - General 04/19/17 [address] [place] [phone] documented as of this encounter
--- OUTSIDE RECORDS SUMMARY | 2022-09-05 06:10 | XMS_ITS | Encounter Summary ---
:1985 Author Organization [facility] Address [address] [place] [address] Care Team Providers Name Role Phone Annemarie Montiel M.D. Primary Care Provider [phone] Reason for Visit Reason Comments Follow-up cholesterol Encounter Details Date Type Department Care Team Description 10/16/2017 Office Visit Department of Family Tammy Schmitt rbid Obesity Body Mass Index Greater Than Or Equal To 40 Adult (HCC) (Primary Dx); Porfirio Valdes M.D. 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 documented as of this encounter Last Filed Vital Signs Vital Sign Reading Time Taken Comments Blood Pressure 98/64 10/16/2017 12:01 PM CANDY SEPARATOR ENROBING Pulse 68 10/16/2017 12:01 PM CANDY SEPARATOR ENROBING Temperature - - Respiratory Rate 16 10/16/2017 12:01 PM CANDY SEPARATOR ENROBING Oxygen Saturation - - Inhaled Oxygen Concentration - - Weight 128 kg (282 lb 10.1 oz) 10/16/2017 12:01 PM CANDY SEPARATOR ENROBING Height 164 cm (5' 4.57) 10/16/2017 12:01 PM CANDY SEPARATOR ENROBING Body Mass Index 47.67 10/16/2017 12:01 PM CANDY SEPARATOR ENROBING documented in this encounter Progress Notes Tammy [...] want to drive back and forth between [facility] or [place] and [place] in the winter, so she is thinking [...] weight loss surgery. - Lipid Panel; Future Y SEPARATOR ENROBING documented in this encounter Plan of Treatment Upcoming Encounters Date Type Specialty Care Team Description 10/19/2022 Procedure visit Neurology Marina Winter M.D., M.P.H. [address] [place] [phone] (Wo rk) Scheduled Procedures Name [...] documented as of this encounter Care Teams Log Raft Worker Relationship Specialty Start Date End Date Annemarie Montiel M.D. PCP - General 04/19/[address] [place] [phone] documented as of this encounter
--- OUTSIDE RECORDS SUMMARY | 2022-09-05 06:10 | XMS_ITS | Encounter Summary ---
:1985 Author Organization [facility] Address [address] [place] [address] Care Team Providers Name Role Phone Annemarie Montiel M.D. Primary Care Provider [phone] Encounter Details Date Type Department Care Team Description 10/17/2018 Clinical Communication Department of Maisha Song, MedicinePorfirio M.D. [facility], in [facility] [address] [place], [place] [address] [place], [place] [phone] (Wo rk) [address] [phone] Social History Tobacco Use Types Packs/Day Years [...] How often do you attend christianity or latter-day Never 07/04/2019 services? 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 - 10/22/2018 11:48 AM PSYCHIATRIC SPECIALIST Pt has review portal message. HIATRIC SPECIALIST Telephone Encounter - Belinda Rueda C.M.A. - 10/17/2018 4:04 PM PSYCHIATRIC SPECIALIST Left message for pt to check her portal. Dr. Montiel has sent a portal message about this issue. HIATRIC SPECIALIST Telephone Encounter - Denise Bhatia - 10/17/2018 1:06 PM CST Reason for Communication: Discuss lab results Current Can Nursing/Provider leave a detailed message: yes Did the patient refuse triage through Nurse line? (for symptom based concerns)NA Action Needed: Patient had labs done yesterday and would like to discuss her next course of action. Name of Medication (if relevant): HIATRIC SPECIALIST documented in this encounter Plan of Treatment Upcoming Encounters Date Type Specialty Care Team Description 10/19/2022 Procedure visit Neurology Marina Winter M.D., M.P.H. [address] [place] [phone] (Wo rk) Scheduled Procedures Name Priority Associated Diagnoses Date/Time LIFT THIGH Excessive And Redundant Skin And Subcutaneous Tissue documented as of this encounter Visit Diagnoses Not on filedocumented in this encounter Additional Health Concerns Assessment Noted Time PHQ-9 Depression Total Score: 15 10/16/2018 11:[address] documented as of this encounter Care Teams Group Fitness Manager Relationship Specialty Start Date End Date Annemarie oMntiel M.D. PCP - General 04/19/17 [address] [place] [phone] documented as of this encounter
--- OUTSIDE RECORDS SUMMARY | 2022-09-05 06:10 | XMS_ITS | Encounter Summary ---
:1985 Author Organization [facility] Address [address] [place] [address] Care Team Providers Name Role Phone Annemarie Montiel M.D. Primary Care Provider Reason for Visit Reason Comments Med Refill Encounter Details Date Type Department Care Team Description 01/21/2018 Refill Department of Yenifer Song M.D. 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 documented in this encounter Plan of Treatment Upcoming Encounters Date Type Specialty Care Team Description 10/19/2022 Procedure visit Neurology Marina Winter M.D., M.P.H. [address], [place] [phone] (Wo rk) Scheduled Procedures Name Priority Associated Diagnoses Date/Time LIFT THIGH Excessive And Redundant Skin And Subcutaneous Tissue documented as of this encounter Visit Diagnoses Not on filedocumented in this encounter Additional Health Concerns Assessment Noted Time PHQ-9 Depression Total Score: 13 08/21/2017 12:55 PM C DT documented as of this encounter Care Teams Crude Oil Driver Relationship Specialty Start Date End Date Annemarie Montiel M.D. PCP - General 04/19/[address] [address] documented as of this encounter
--- OUTSIDE RECORDS SUMMARY | 2022-09-05 06:10 | XMS_ITS | Encounter Summary ---
:1985 Author Organization [facility] Address [address] [place] [address] Care Team Providers Name Role Phone Annemarie Montiel M.D. Primary Care Provider [phone] Reason for Visit Reason Comments Med Refill Encounter Details Date Type Department Care Team Description 05/16/2018 Refill Department of Yenifer Song M.D. Med Refill Medicine, [facility], [address] [place] [address] [address] [place] [address] [facility] [phone] Social History Tobacco Use Types Packs/Day Years [...] How often do you attend judaism or yazidi Never 07/04/2019 services? Do you [...] at Date Recorded Female 10/16/2018 10:53 AM LAMBSKIN TRIMMER documented as of this encounter Plan of Treatment Upcoming Encounters Date Type Specialty Care Team Description 10/19/2022 Procedure visit Neurology Marina Winter M.D., M.P.H. [address] [place], [place] [phone] (Wo rk) Scheduled Procedures Name Priority Associated Diagnoses Date/Time LIFT THIGH Excessive And Redundant Skin And Subcutaneous Tissue documented as of this encounter Visit Diagnoses Not on filedocumented in this encounter Additional Health Concerns Assessment Noted Time PHQ-9 Depression Total Score: 15 03/27/2018 5:04 PM CD T documented as of this encounter Care Teams Children Teacher Relationship Specialty Start Date End Date Annemarie Montiel M.D. PCP - General 04/19/[address] [place] [phone] documented as of this encounter
--- OUTSIDE RECORDS SUMMARY | 2022-09-05 06:10 | XMS_ITS | Encounter Summary ---
:1985 Author Organization [facility] Address [address] [place] [address] Care Team Providers Name Role Phone Annemarie Montiel M.D. Primary Care Provider [phone] Reason for Visit Reason Comments Dizziness Encounter Details Date Type Department Care Team Description 10/31/2017 Emergency [facility] Pharyngitis Streptococcal [address] (Primary Dx) [place] [address] Social History Tobacco Use Types Packs/Day [...] How often do you attend cheondoism or jehovah's witness Never 07/04/2019 services? 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 [address] [place] [phone] (Wo rk) Scheduled Procedures Name Priority Associated Diagnoses Date/Time LIFT THIGH Excessive And Redundant Skin And Subcutaneous Tissue documented as of this encounter Visit Diagnoses Diagnosis Pharyngitis Streptococcal - Primary documented in this encounter Additional Health Concerns Assessment Noted Time PHQ-9 Depression Total Score: 13 08/21/2017 12:55 PM C DT documented as of this encounter Care Teams Design Engineering Intern Relationship Specialty Start Date End Date Annemarie Montiel M.D. PCP - General 04/19/[address] [place] [phone] documented as of this encounter
--- OUTSIDE RECORDS SUMMARY | 2022-09-05 06:10 | XMS_ITS | Encounter Summary ---
:1985 Author Organization [facility] Address [address] [place] [address] Care Team Providers Name Role Phone Annemarie Montiel M.D. Primary Care Provider [phone] Reason for Referral Outpatient (Routine) - Closed Specialty Diagnoses / Procedures Referred By Contact Refer red To Contact Family Annemarie Toure M.D. [facility] [address] [place] [address] Referral ID Status Reason Start Date Expiration Date Visits Requ ested Visits Authorized [id number] Closed 11/20/2018 11/20/2019 1 1 R RELATIONS OR PERSONNEL NEGOTIATOR Reason for Visit Reason Comments Follow-up 1 month medication Appointment Request (Routine) - Closed Specialty Diagnoses / Procedures Referred By Contact Refer red To Contact Family Medicine Referral ID Status Reason Start Date Expiration Date Visits Requ ested Visits Authorized [id number] Closed 10/16/2018 10/16/2019 1 Encounter Details Date Type Department Care Team Description 11/20/2018 Office Visit Department of Annemarie Song, Surgery Bariatric Status Post (Primary Dx); Porfirio Valdes M.D. Depression Major Recurrent (HCC); Clinic, in [facility] [address] Anxiety Generalized Disorder; [place], [place] Screening For Venereal Disea se [address] [address] [place], [place] [phone] (Wo rk) [address] [phone] Social History Tobacco Use Types Packs/Day Years [...] How often do you attend yazidism or yazidi Never 07/04/2019 services? 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 documented as of this encounter Last Filed Vital Signs Vital Sign Reading Time Taken Comments Blood Pressure 118/78 11/20/2018 3:58 PM LABOR RELATIONS OR PERSONNEL NEGOTIATOR Pulse 72 11/20/2018 3:58 PM LABOR RELATIONS OR PERSONNEL NEGOTIATOR Temperature 36.1 ??C (97 ??F) 11/20/2018 3:58 PM LABOR RELATIONS OR PERSONNEL NEGOTIATOR Respiratory Rate - - Oxygen Saturation - - Inhaled Oxygen Concentration - - Weight 100 kg (220 lb 7.4 oz) 11/20/2018 3:58 PM LABOR RELATIONS OR PERSONNEL NEGOTIATOR Height - - Body Mass Index 35.64 10/31/2018 8:59 AM LABOR RELATIONS OR PERSONNEL NEGOTIATOR documented in this encounter Progress Notes Annemarie [...] bariatric surgery [gastric sleeve 08/2018 while in [place]] andwas overdue for follow-up. Vitamin D, BMP, [...] The patient has contacted Bariatric Surgery in [place] and has an appointment scheduled. Furthermore; the [...] bariatric surgery [gastric sleeve 08/2018 while in [place]]; overdue for follow-up. PLAN: I suspect she has a vitamin or electrolyte deficiency leading to her paresthesias. Vitamin B12, CBC, and Potassium labs are repeated today with results pending. The patient will be notified of the results when available. Maria Alejandra will continue to work with our registered nurse hh case manager and has an appoi ntment on the books to establish with Bariatric Surgery in [place]. ?? #3. Screening for veneral disease. PLAN: [...] their behalf by Lidia huertas trained medical claims representative. The creation of this record is basedon the scribe's personal observations and the provider's statements to them. This document has been c hecked and approved by the attending provider. R RELATIONS OR PERSONNEL NEGOTIATOR documented in this encounter Plan of Treatment Upcoming Encounters Date Type Specialty Care Team Description 10/19/2022 Procedure visit Neurology Marina Winter M.D., M.P.H. [address] [phone] (Wo rk) Scheduled Procedures Name Priority Associated Diagnoses Date/Time LIFT THIGH Excessive And Redundant Skin And Subcutaneous Tissue Scheduled Referrals Name Type Priority Associated Diagnoses Order S [facility] Family Medicine Outpatient Referral Routine Expec heaven: office visit 01/18/2019 (clinic) (Approximate), Expires: 11/20/2021 documented as of this encounter Procedures Procedure Name Priority Date/Time Associated Diagnosis Comme nts CHLAMYDIA/GONORRHOE Routine 11/20/2018 4:57 PM Screening For R esults for this AE AMPLIFIED RNA LABOR RELATIONS OR PERSONNEL NEGOTIATOR Venereal Disease procedu re are in the results section. documented in this encounter Results HIV-1 p24 Ag, HIV-1/2 Ab Scrn, P (11/20/2018 4:58 PM LABOR RELATIONS OR PERSONNEL NEGOTIATOR) P athologist Signature HIV Ag/Ab Negative Negative 11/25/2018 [facility] Screen, P 7:50 AM LABOR RELATIONS OR PERSONNEL NEGOTIATOR [facility] Comment: Negative result does not rule out HIV in fection. If exposure to HIV infection occurred <14 d ays ago, contact the laboratory to request additi on of HIV-1 RNA detection / quantification test. HIV-1 p24 Ag Screen, Negative Negative 11/25/2018 7:50 AM LABOR RELATIONS OR PERSONNEL NEGOTIATOR [facility] Comment: Negative result does not rule out HIV in fection. If exposure to HIV infection occurred <14 d ays ago, contact the laboratory to request additi on of HIV-1 RNA detection / quantification test. HIV-1 Ab Screen, P Negative Negative 11/25/2018 7:50 AM [facility] Comment: Negative result does not rule out HIV in fection. If exposure to HIV infection occurred <14 d ays ago, contact the laboratory to request additi on of HIV-1 RNA detection / quantification test. HIV-2 Ab Screen, P Negative Negative 11/25/2018 7:50 AM [facility] Comment: Negative result does not rule out HIV in fection. If exposure to HIV infection occurred <14 d ays ago, contact the laboratory to request additi on of HIV-1 RNA detection / quantification test. Specimen Anatomical Collection Method Collection Time Receive d Time (Source) Location / / Volume Laterality Blood (Blood, 11/20/2018 4:58 PM 11/21/19 Venous) LABOR RELATIONS OR PERSONNEL NEGOTIATOR 11:33 AM LABOR RELATIONS OR PERSONNEL NEGOTIATOR Annemarie Montiel M.D. LAB MICROBIOLOGY - BLOOD ORD ERABLES Performing Organization Address City/State/ZIP Code Phon e Number [facility]- [address] [place] [phone] [place] [facility] (ABNORMAL) Potassium (11/20/2018 4:58 PM LABOR RELATIONS OR PERSONNEL NEGOTIATOR) athologist Signature Potassium, S 3.4 (L) 3.6 - 5.2 11/20/2018 [facility] mmol/L 5:59 PM [facility] Specimen Anatomical Collection Method Collection Time Receive d Time (Source) Location / / Volume Laterality Blood (Blood, 11/20/2018 4:58 PM 11/20/19 5:00 Venous) LABOR RELATIONS OR PERSONNEL NEGOTIATOR PM LABOR RELATIONS OR PERSONNEL NEGOTIATOR Annemarie Montiel M.D. LAB BLOOD ADD-ON Performing Organization Address City/State/ZIP Code Phon e Number [facility] [address] [place] [address] LAB CBC without Differential (11/20/2018 4:58 PM LABOR RELATIONS OR PERSONNEL NEGOTIATOR) athologist Signature Hemoglobin 12.7 11.6 - 11/20/2018 [facility] 15.0 g/dL 5:02 PM [facility] Hematocrit 38.5 35.5 - 11/20/2018 [facility] 44.9 % 5:02 PM [facility] Erythrocytes 4.34 3.92 - 11/20/2018 [facility] 5.13 5:02 PM [facility] x10(12)/L [facility] MCV 88.7 78.2 - 11/20/2018 [facility] 97.9 fL 5:02 PM [facility] RBC Distrib Width 13.8 12.2 - 11/20/2018 [facility] 16.1 % 5:02 PM [facility] Platelet Count 329 157 - 371 11/20/2018 [facility] x10(9)/L 5:02 PM [facility] Leukocytes 7.6 3.4 - 9.6 11/20/2018 [facility] x10(9)/L 5:02 PM [facility] Specimen Anatomical Collection Method Collection Time Receive d Time (Source) Location / / Volume Laterality Blood (Blood, 11/20/2018 4:58 PM 11/20/19 19 5:00 Venous) LABOR RELATIONS OR PERSONNEL NEGOTIATOR PM LABOR RELATIONS OR PERSONNEL NEGOTIATOR Annemarie Montiel M.D. LAB BLOOD ADD-ON Performing Organization Address City/State/ZIP Code Phon e Number [facility] [address] [place] [phone] LAB Vitamin B12 Assay (11/20/2018 4:58 PM [facility]) P athologist Signature Vitamin B12 385 104 - 9301 11/20/2018 [facility] Assay, S ng/L 9:44 PM [facility] Comment: Biotin has been identified by the isidra oneal as a potential interfering substance. ??Higher concentr ations of biotin may be found in multivitamins, hair/nail supple ments, and workout supplements. ??If the result does not ma [facility] clinical observations, repeat testing after patient refrains fr om the use of supplements for at least 12 hours. Specimen Anatomical Collection Method Collection Time Receive d Time (Source) Location / / Volume Laterality Blood (Blood, 11/20/2018 4:58 PM 11/20/19 19 9:05 Venous) LABOR RELATIONS OR PERSONNEL NEGOTIATOR PM LABOR RELATIONS OR PERSONNEL NEGOTIATOR Annemarie Montiel M.D. LAB BLOOD ADD-ON Performing Organization Address City/State/ZIP Code Phon e Number [facility]- [address] [place] [address] [place] [facility] Syphilis IgG Antibody with Reflex (11/20/2018 4:58 PM LABOR RELATIONS OR PERSONNEL NEGOTIATOR) P athologist Signature Syphilis IgG Negative Negative 11/22/2018 [facility] Ab, S 12:20 PM LABOR RELATIONS OR PERSONNEL NEGOTIATOR [facility] [place] [facility] Comment: No serologic evidence of exposu re to syphilis. Specimen Anatomical Collection Method Collection Time Receive d Time (Source) Location / / Volume Laterality Blood (Blood, 11/20/2018 4:58 PM 11/21/19 19 Venous) LABOR RELATIONS OR PERSONNEL NEGOTIATOR 11:33 AM LABOR RELATIONS OR PERSONNEL NEGOTIATOR Annemarie Montiel M.D. LAB BLOOD ADD-ON Performing Organization Address City/State/ZIP Code Phon e Number [facility]- [address] [place], [place] [phone] [facility] Chlamydia / Gonorrhoeae Amplified RNA (11/20/2018 4:57 PM LABOR RELATIONS OR PERSONNEL NEGOTIATOR) Patholo gist Method Time Signature Source URINE, FIRST 11/21/2018 [facility] VOID 11:52 AM [facility] Chlamydia Negative Negative 11/21/2018 [facility] trachomatis 11:52 AM [facility] amplified RNA [facility] Comment: ----ADDITIONAL INFORMATION---- This report is intended for use in clini lori monitoring and management of patients. It is not in tended for use in medical-legal applications. Source URINE, FIRST VOID 11/21/2018 11:52 AM [facility] Neisseria Negative Negative 11/21/2018 11:52 AM [facility] C gonorrhoeae [facility]- amplified RNA [place] [place] Comment: ----ADDITIONAL INFORMATION---- This report is intended for use in clini lori monitoring and management of patients. It is not in tended for use in medical-legal applications. Specimen Anatomical Collection Method Collection Time Receive d Time (Source) Location / / Volume Laterality Varies 11/20/2018 4:57 PM 9 7:14 (Cervix/Endocerv LABOR RELATIONS OR PERSONNEL NEGOTIATOR PM LABOR RELATIONS OR PERSONNEL NEGOTIATOR ix) Annemarie Montiel M.D. LAB MICROBIOLOGY - GENERAL O CLARISSA Performing Organization Address City/State/ZIP Code Phon e Number [facility] [address] [place] [address] LAB documented in this encounter Visit Diagnoses Diagnosis Surgery Bariatric Status Post - Primary Depression Major Recurrent (HCC) Anxiety Generalized Disorder Screening For Venereal Disease documented in this encounter Additional Health Concerns Assessment Noted Time PHQ-9 Depression Total Score: 18 11/01/2018 8:11 AM CS T documented as of this encounter Care Teams Waiter/Waitress Dining Car Relationship Specialty Start Date End Date Annemarie Montiel M.D. PCP - General 04/19/17 [address] [place] [phone] documented as of this encounter
--- OUTSIDE RECORDS SUMMARY | 2022-09-05 06:10 | XMS_ITS | Encounter Summary ---
:1985 Author Organization [facility] Address [address] [place] [address] Care Team Providers Name Role Phone Annemarie Montiel M.D. Primary Care Provider [phone] Encounter Details Date Type Department Care Team Description 09/14/2017 Nurse Triage Department of Nika Iverson, Medicine, [facility], [place] [address] [place] [address] Social History Tobacco Use Types Packs/Day Years [...] How often do you attend anabaptism or restoration Never 07/04/2019 services? 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 - 09/14/2017 4:38 PM CST Requests treatment for a vaginal yeast infection. Has had a white clumpy vaginal discharge with someinternal itching for 24 hours. NKA to medications. Requests treatment with the pill. Patient was provided aftercare instructions. NISTRATOR OF HOME HEALTH documented in this encounter Plan of Treatment Upcoming Encounters Date Type Specialty Care Team Description 10/19/2022 Procedure visit Neurology Marina Winter M.D., M.P.H. [address] [phone] (Wo rk) Scheduled Procedures Name Priority Associated Diagnoses Date/Time LIFT THIGH Excessive And Redundant Skin And Subcutaneous Tissue documented as of this encounter Visit Diagnoses Not on filedocumented in this encounter Additional Health Concerns Assessment Noted Time PHQ-9 Depression Total Score: 13 08/21/2017 12:55 PM C DT documented as of this encounter Care Teams Grocery Caddy Relationship Specialty Start Date End Date Annemarie Montiel M.D. PCP - General 04/19/[address] [phone] documented as of this encounter
--- OUTSIDE RECORDS SUMMARY | 2022-09-05 06:10 | XMS_ITS | Encounter Summary ---
:1985 Author Organization [facility] Address [address] [place] [address] Care Team Providers Name Role Phone Annemarie Montiel M.D. Primary Care Provider [phone] Reason for Visit Reason Comments Dysuria sx since yesterday Encounter Details Date Type Department Care Team Description 12/08/2018 Office Visit Urgent Care in [place]ys[place] (Primary Dx) [place] [address] [place] [address] [address] [place], [place] [phone] Social History Tobacco Use Types Packs/Day Years [...] How often do you attend cheondoism or hoahaoism Never 07/04/2019 services? 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 documented as of this encounter Last Filed Vital Signs Vital Sign Reading Time Taken Comments Blood Pressure 125/63 12/08/2018 11:40 AM CLOTHES MARKER Pulse 97 12/08/2018 11:40 AM CLOTHES MARKER Temperature 36.6 ??C (97.9 ??F) 12/08/2018 11:40 AM CLOTHES MARKER Respiratory Rate - - Oxygen Saturation 98% 12/08/2018 11:40 AM CLOTHES MARKER Inhaled Oxygen Concentration - - Weight 96.1 kg (211 lb 13.8 oz) 12/08/2018 11:40 AM CLOTHES MARKER Height - - Body Mass Index 34.25 10/31/2018 8:59 AM CLOTHES MARKER documented in this encounter Progress Notes Den [...] of this note, please contact the author. HES MARKER documented in this encounter Plan of Treatment Upcoming Encounters Date Type Specialty Care Team Description 10/19/2022 Procedure visit Neurology Marina Winter M.D., M.P.H. [address] [place], [place] [phone] (Wo rk) Scheduled Procedures Name Priority Associated Diagnoses Date/Time LIFT THIGH Excessive And Redundant Skin And Subcutaneous Tissue documented as of this encounter Procedures Procedure Name Priority Date/Time Associated Comments Diagnosis URINALYSIS WITH STAT 12/08/2018 11:37 Dysuria Results for this MICROSCOPIC IF AM CLOTHES MARKER procedure are in INDICATED, U the results section. MICROSCOPIC AUTOMATED STAT 12/08/2018 11:37 Re sults for this AM CLOTHES MARKER procedure are i n the results section. BACTERIAL CULTURE, STAT 12/08/2018 11:37 Dysuria Resul ts for this AEROBIC + SUSC, URINE AM CLOTHES MARKER proced ure are in the results section. documented in this encounter Results (ABNORMAL) Microscopic Automated (12/08/2018 11:37 AM CLOTHES MARKER) athologist Signature White Blood >100 (A) /hpf 12/08/2018 [facility] Cells 11:59 AM [email or web address] LAB Comment: ----REFERENCE VALUE---- Males: 0-3 Females: 0-10 Unknown: 0-10 Red Blood Cells 31-40 (A) 0 - 2 /hpf 12/08/2018 11:59 AM [email or web address] LAB Dysmorphic Red Blood <=25 <=25 % 12/08/2018 11:59 AM [facility]- [email or web address] LAB Hyaline Casts 4-10 /lpf 12/08/2018 11:59 AM [facility]- The car easily [facility] LAB Squamous Cells 11-20 /hpf 12/08/2018 11:59 AM [facility]- [facility] LAB Bacteria Present (A) None Seen 12/08/2018 11:59 AM [facility]- The car easily [facility]OF[facility] LAB Specimen Anatomical Collection Method Collection Time Receive d Time (Source) Location / / Volume Laterality Urine 12/08/2018 11:37 12/08/2018 AM CLOTHES MARKER 11:50 AM CLOTHES MARKER [place] M.D. LAB URINE ORDERABLES Performing Organization Address City/State/ZIP Code Phon e Number [employer] [address] [place] [address] LAB (ABNORMAL) Bacterial Culture, Aerobic + Susc, Urine (12/08/2018 11:37 AM CLOTHES MARKER) [facility] gist Method Time Signature Bacterial With Mixed 12/10/2018 [facility] Culture, carmelo. (A) 7:50 AM CLOTHES MARKER HEALTH Aerobic, SYSTEM- Urine [facility] Bacterial ESCHERICHIA COLI 12/10/2018 [facility] Culture, >100,000 cfu/mL 7:50 AM CLOTHES MARKER HEALTH Aerobic, (A) SYSTEM- Urine [facility] Specimen Anatomical Collection Method Collection Time Receive d Time (Source) Location / / Volume Laterality Urine (Urine, 12/08/2018 11:37 12/08/2018 3:28 Midstream) AM CLOTHES MARKER PM CLOTHES MARKER Comment: Specimen Source Site: Urine Organism Antibiotic [...] Code Phon e Number [facility] [address] [place] [address] LAB (ABNORMAL) Urinalysis with Microscopic if Indicated (12/08/2018 11:37 AM CLOTHES MARKER) P athologist Signature Source Midstream 12/08/2018 [facility] 12:03 PM [facility] Clarity Cloudy (A) Clear 12/08/2018 [facility] 11:59 AM [facility] Color Yellow 12/08/2018 [facility] 11:59 AM [facility] Comment: ----REFERENCE VALUE---- Colorless Yellow [place] Blood Large (A) Negative 12/08/2018 11:59 AM [facility] Nitrite Positive (A) Negative 12/08/2018 11:59 AM [facility] Leukocyte Esterase Large (A) Negative 12/08/2018 11:59 AM [facility] Protein 100 (A) mg/dL 12/08/2018 11:59 AM [facility] Comment: ----REFERENCE VALUE---- Negative Trace Glucose Negative Negative mg/dL 12/08/2018 11:59 AM [facility] Ketone 15 (A) Negative mg/dL 12/08/2018 11:59 AM [facility] Bilirubin Negative Negative 12/08/2018 11:59 AM [facility] LAB pH 5.5 5.0 - 8.0 12/08/2018 11:59 AM [facility] Specific Murphy 1.018 1.001 - 1.035 12/08/2018 11:59 AM [facility] LAB Urobilinogen 0.2 0.2 - 1.0 12/08/2018 11:59 AM [facility] Specimen Anatomical Collection Method Collection Time Receive d Time (Source) Location / / Volume Laterality Urine (Urine, 12/08/2018 11:37 12/08/2018 Clean Catch) AM CLOTHES MARKER 11:50 AM CLOTHES MARKER [place] M.D. LAB URINE ORDERABLES Performing Organization Address City/State/ZIP Code Phon e Number - [place] [address] [place] [address] LAB documented in this encounter Visit Diagnoses Diagnosis Dysuria - Primary documented in this encounter Additional Health Concerns Assessment Noted Time PHQ-9 Depression Total Score: 18 11/01/2018 8:11 AM CS T documented as of this encounter Care Teams Appellate Conferee Relationship Specialty Start Date End Date Annemarie Montiel M.D. PCP - General 04/19/172[address] [place] [address] documented as of this encounter
--- OUTSIDE RECORDS SUMMARY | 2022-09-05 06:10 | XMS_ITS | Encounter Summary ---
:1985 Author Organization [facility] Address [address] [place] [address] Care Team Providers Name Role Phone Annemarie Montiel M.D. Primary Care Provider [phone] Reason for Visit Reason Comments Med Refill Encounter Details Date Type Department Care Team Description 01/13/2018 Refill Department of Obstetrics and Gau Nahun kraus M.D. Med Refill Gynecology in [address] [phone] [place] [address] [facility] [phone] Social History Tobacco Use Types Packs/Day Years [...] How often do you attend mu-ism or confucianism Never 07/04/2019 services? 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 Nicki Montiel. documented in this encounter Plan of Treatment Upcoming Encounters Date Type Specialty Care Team Description 10/19/2022 Procedure visit Neurology Marina Winter M.D., M.P.H. [address], [place] [phone] (Wo rk) Scheduled Procedures Name Priority Associated Diagnoses Date/Time LIFT THIGH Excessive And Redundant Skin And Subcutaneous Tissue documented as of this encounter Visit Diagnoses Not on filedocumented in this encounter Additional Health Concerns Assessment Noted Time PHQ-9 Depression Total Score: 13 08/21/2017 12:55 PM C DT documented as of this encounter Care Teams Cold Working Inspector Relationship Specialty Start Date End Date Annemarie Montiel M.D. PCP - General 04/19/17 [address], [place] [address] documented as of this encounter
--- OUTSIDE RECORDS SUMMARY | 2022-09-05 06:10 | XMS_ITS | Encounter Summary ---
:1985 Author Organization [facility] Address [address] [place] [address] Care Team Providers Name Role Phone Annemarie Montiel M.D. Primary Care Provider [phone] Encounter Details Date Type Department Care Team Description 10/16/2018 Hospital Encounter Department of Annemarie Montiel Surg nick Bariatric Laboratory Medicine [place] Zuniga Status Post in [address] [address] [place], [place] [phone] [address] (Work) [phone] Social History Tobacco Use Types Packs/Day Years [...] How often do you attend temple or christian Never 07/04/2019 services? Do you [...] at Date Recorded Female 10/16/2018 10:53 AM OB GYN documented as of this encounter Medications at [...] her diet in general. Nicki Montiel MD GYN documented in this encounter Plan of Treatment Upcoming Encounters Date Type Specialty Care Team Description 10/19/2022 Procedure visit Neurology Marina Winter M.D., M.P.H. [address] [place] [phone] (Wo rk) Scheduled Procedures Name Priority Associated Diagnoses Date/Time LIFT THIGH Excessive And Redundant Skin And Subcutaneous Tissue documented as of this encounter Procedures Procedure Name Priority Date/Time Associated Diagnosis Comme nts 25-HYDROXYVITAMIN Routine 10/16/2018 12:52 PM Surgery Bariatri c Results for this D2 AND D3, S OB GYN Status Post procedure are i n the results section. CBC WITHOUT Routine 10/16/2018 12:52 PM Surgery Bariatric Res ults for this DIFFERENTIAL, B OB GYN Status Post procedure ar e in the results section. THYROID-STIMULATING Routine 10/16/2018 12:52 PM Surgery Bariat christ Results for this HORMONE-SENSITIVE OB GYN Status Post procedure are in (S-TSH) the results section. MAGNESIUM, S Routine 10/16/2018 12:52 PM Surgery Bariatric Res ults for this OB GYN Status Post procedure are i n the results section. FERRITIN, S Routine 10/16/2018 12:52 PM Surgery Bariatric Res ults for this OB GYN Status Post procedure are i n the results section. VITAMIN B12 ASSAY, Routine 10/16/2018 12:52 PM Surgery Bariatr ic Results for this S OB GYN Status Post procedure are i n the results section. BASIC METABOLIC Routine 10/16/2018 12:52 PM Surgery Bariatric Results for this PANEL, S/P OB GYN Status Post procedure are i n the results section. documented in this encounter Results Magnesium (10/16/2018 12:52 PM OB GYN) athologist Signature Magnesium, S 1.7 1.7 - 2.3 10/16/2018 [facility] mg/dL 2:57 PM [facility] LAB Specimen Anatomical Collection Method Collection Time Receive d Time (Source) Location / / Volume Laterality Blood (Blood, 10/16/2018 12:52 10/16/2018 1:29 Venous) PM OB GYN PM OB GYN Annemarie Montiel M.D. LAB BLOOD ADD-ON Performing Organization Address City/State/ZIP Code Phon e Number [facility] [address] [place] [address] LAB CBC without Differential (10/16/2018 12:52 PM OB GYN) athologist Signature Hemoglobin 14.0 11.6 - 10/16/2018 [facility] 15.0 g/dL 1:33 PM [facility] LAB Hematocrit 41.2 35.5 - 10/16/2018 [facility] 44.9 % 1:33 PM [facility] LAB Erythrocytes 4.72 3.92 - 10/16/2018 [facility] 5.13 1:33 PM [facility] x10(12)/L [facility] LAB MCV 87.3 78.2 - 10/16/2018 [facility] 97.9 fL 1:33 PM [facility] LAB RBC Distrib Width 14.3 12.2 - 10/16/2018 [facility] 16.1 % 1:33 PM [facility] LAB Platelet Count 255 157 - 371 10/16/2018 [facility] x10(9)/L 1:33 PM [facility] LAB Leukocytes 8.3 3.4 - 9.6 10/16/2018 [facility] x10(9)/L 1:33 PM [facility] LAB Specimen Anatomical Collection Method Collection Time Receive d Time (Source) Location / / Volume Laterality Blood (Blood, 10/16/2018 12:52 10/16/2018 1:29 Venous) PM OB GYN PM OB GYN Annemarie Montiel M.D. LAB BLOOD ADD-ON Performing Organization Address City/[facility] Phon e Number [facility] [address] [place] [phone] LAB Ferritin (10/16/2018 12:52 PM OB GYN) P athologist Signature Ferritin, S 116 13 - 150 10/16/2018 [facility] mcg/L 2:57 PM [facility] LAB Comment: Biotin has been identified by the isidra oneal as a potential interfering substance. ??Higher concentr ations of biotin may be found in multivitamins, hair/nail supple ments, and workout supplements. ??If the result does not [facility] clinical observations, repeat testing after patient refrains fr om the use of supplements for at least 12 hours. Specimen Anatomical Collection Method Collection Time Receive d Time (Source) Location / / Volume Laterality Blood (Blood, 10/16/2018 12:52 10/16/2018 1:29 Venous) PM OB GYN PM OB GYN Annemarie Montiel M.D. LAB BLOOD ADD-ON Performing Organization Address City/[facility]/ZIP Code Phon e Number [facility] [address], [place] [address] LAB Vitamin B12 Assay (10/16/2018 12:52 PM OB GYN) athologist Signature Vitamin B12 438 023 - 1241 10/16/2018 [facility] Assay, S ng/L 4:57 PM [facility] LAB Comment: Biotin has been identified by the isidra oneal as a potential interfering substance. ??Higher concentr ations of biotin may be found in multivitamins, hair/nail supple ments, and workout supplements. ??If the result does not [facility] clinical observations, repeat testing after patient refrains fr om the use of supplements for at least 12 hours. Specimen Anatomical Collection Method Collection Time Receive d Time (Source) Location / / Volume Laterality Blood (Blood, 10/16/2018 12:52 10/16/2018 4:05 Venous) PM OB GYN PM OB GYN Annemarie Montiel M.D. LAB BLOOD ADD-ON Performing Organization Address City/[facility]/ZIP Code Phon e Number [facility] [address] [place] [address] [place] LAB S-TSH (Thyroid-Stimulating Hormone - Sensitive) (10/16/2018 12:52 PM OB GYN) athologist Signature TSH, Sensitive 0.8 0.3 - 4.2 10/16/2018 [facility] mIU/L 2:57 PM [facility] LAB Comment: Biotin has been identified by the isidra oneal as a potential interfering substance. ??Higher concentr ations of biotin may be found in multivitamins, hair/nail supple ments, and workout supplements. ??If the result does not [facility] clinical observations, repeat testing after patient refrains fr om the use of supplements for at least 12 hours. Specimen Anatomical Collection Method Collection Time Receive d Time (Source) Location / / Volume Laterality Blood (Blood, 10/16/2018 12:52 10/16/2018 1:29 Venous) PM OB GYN PM OB GYN Annemarie Montiel M.D. LAB BLOOD ADD-ON Performing Organization Address City/State/ZIP Code Phon e Number [facility] [address] [place] [address] LAB (ABNORMAL) BMP (Basic Metabolic Panel) (10/16/2018 12:52 PM OB GYN) Analysis Performed At Patho logist Time Signature Potassium, S 3.5 (L) 3.6 - 5.2 10/16/2018 [facility] mmol/L 2:57 PM [facility] Sodium, S 146 (H) 135 - 145 10/16/2018 [facility] mmol/L 2:57 PM [facility] Chloride, S 103 98 - 107 10/16/2018 [facility] mmol/L 2:57 PM [facility] Bicarbonate, S 29 22 - 29 10/16/2018 [facility] mmol/L 2:57 PM [facility] Anion Gap 14 7 - 15 10/16/2018 [facility] 2:57 PM [facility] BUN (Blood Urea 5 (L) 6 - 21 10/16/2018 [facility] Nitrogen), S mg/dL 2:57 PM [facility] Creatinine 0.47 (L) 0.59 - 10/16/2018 [facility] 1.04 mg/dL 2:57 PM [facility] eGFR-Non >90 >=60 10/16/2018 [facility] Black/ mL/min/BSA 2:57 PM [facility] [facility] Comment: ----ADDITIONAL INFORMATION---- Estimated GFR calculated using the 2009 CKD_EPI creatinine equation. eGFR-Black/ >90 >=60 mL/min/BSA 2017 2:57 PM [facility] LAB Comment: ----ADDITIONAL INFORMATION---- Estimated GFR calculated using the 2009 CKD_EPI creatinine equation. Calcium, Total, S 9.4 8.6 - 10.0 mg/dL 10/16/2018 2 :57 PM [facility] Glucose, S 84 70 - 140 mg/dL 10/16/2018 2:57 PM [facility] LAB Specimen Anatomical Collection Method Collection Time Receive d Time (Source) Location / / Volume Laterality Blood (Blood, 10/16/2018 12:52 10/16/2018 1:29 Venous) PM OB GYN PM OB GYN Annemarie L Clubb M.D. LAB BLOOD ADD-ON Performing Organization Address City/State/ZIP Code Phon e Number [facility] [address] [place] [address] LAB 25-Hydroxyvitamin D2 and D3 (10/16/2018 12:52 PM OB GYN) P athologist Signature 25-Hydroxy D2 <4.0 ng/mL 10/18/2018 [facility] 3:01 PM OB GYN [address] [facility] 25-Hydroxy D3 33 ng/mL 10/18/2018 [facility] 3:01 PM OB GYN [address] [facility] 25-Hydroxy D 33 ng/mL 10/18/2018 [facility] Total 3:01 PM OB GYN [address] [facility] Comment: ----REFERENCE VALUE---- 25-HYDROXY D TOTAL (D2+D3) Optimum level s in the healthy population are 20-50, patients with bone disease may benefit from higher levels within this r maria alejandra. ----ADDITIONAL INFORMATION---- This test was developed and its performa nce characteristics determined by [facility] in a manner consistent with CLIA requirements. This test has not been cleared or approved by the [place]. Domin[place] d and Drug Administration. Specimen Anatomical Collection Method Collection Time Receive d Time (Source) Location / / Volume Laterality Blood (Blood, 10/16/2018 12:52 10/17/2018 9:28 Venous) PM OB GYN AM OB GYN Annemarie Montiel M.D. LAB BLOOD ADD-ON Performing Organization Address City/State/ZIP Code Phon e Number [facility] [address] [place], [place] [address] [facility] documented in this encounter Visit Diagnoses Diagnosis Surgery Bariatric Status Post documented in this encounter Additional Health Concerns Assessment Noted Time PHQ-9 Depression Total Score: 15 10/16/2018 11:[address] documented as of this encounter Care Teams Asphalt Paving Foreman Relationship Specialty Start Date End Date Annemarie Montiel M.D. PCP - General 04/19/172199 [place] [address] documented as of this encounter
--- OUTSIDE RECORDS SUMMARY | 2022-09-05 06:10 | XMS_ITS | Encounter Summary ---
:1985 Author Organization [facility] Address [address] [place] [address] Care Team Providers Name Role Phone Annemarie Montiel M.D. Primary Care Provider [phone] Encounter Details Date Type Department Care Team Description 09/06/2017 Hospital Encounter HX [facility] Promise Rouse M.D. 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 Pelvic: External genitalia, Bartholin, urethral, and [place] glands appear normal. Vaginal secretions are grossly [...] TEJEDA MD On: 09/07/2017 11:26 AM [facility] Document Id: [id number] documented in this encounter Miscellaneous Notes Miscellaneous - Shar Tejeda M.D. - 09/07/2017 11:23 AM CDT Ambulatory Patient Summary [address] [id number] Visit Information Name: NANCY PHILLIPS [facility] Number: [id number] Current Date: 09/07/2017 11:23:36 Physicians [...] 8 hours x 14 day(s) [facility] [address] [place] [address] [facility] [place] Cocunut oil 1000mg tablet daily multivitamin [...] if you dont have one. Go to [email or web address] and click on Create Your Account. Then, follow the directions to complete the online form. Youll be asked for your [facility] number which you can find at the top of this document. Your Goals/Additional instructions: Source: [facility] POWERCHART Document Id: [id number] Miscellaneous - Shar Tejeda M.D. - 09/07/2017 11:23 AM CDT Ambulatory Discharge Medication List [address] [id number] Visit Information Name: NANCY PHILLIPS [facility] Number: [id number] Current Date: 09/07/2017 11:23:35 Attending [...] 8 hours x 14 day(s) [facility] [address] [place] [address] [facility] [place] [place] [place] [facility] Cocunut oil 1000mg tablet daily multivitamin [...] MD Signed On:07-SEP-2017 11:23:32 Additional Information: Source: [facility] POWERCHART Document Id: [id number] Miscellaneous - Nusrat Miller L.PRodrigoNRodrigo - 09/06/2017 4:48 PM CDT Neurosurgical Nurse Practitioner Documentation Neurosurgical Nurse Practitioner Documentation Entered On: 09/06/2017 16:48 CDT Performed On: 09/06/2017 16:48 CDT by NUSRAT MILLER LPN Neurosurgical Nurse Practitioner Documentation Exam/Procedure Performed : pelvic CD Neurosurgical Nurse Practitioner Present : Yes Present in Room During Exam/Procedure : Alone, Daughter, Other: friend NUSRAT MILLER LPN - 09/06/2017 16:48 CDT Source: [facility] [employer] Document Id: [id number] CDT!5 Erickacellaneous - Shar Tejeda M.D. - 09/06/2017 4:18 PM CDT Results Notification Document Contains Addenda Addendum by RADHA RHOADES on September 06, 2017 16:42:36 CDT patient notified. From: SHAR TEJEDA MD To: ERRAND RUNNER Nurse; Sent: 09/06/2017 16:18:03 CDT ! [...] (H) 148 mg/dL ( - <=129) Source: [facility] [employer] Document Id: [id number] Miscellaneous - Laverne Conti LRodrigoP.N. 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 Brigadier Intake/History Adult Brigadier Intake/History Entered On: 09/06/2017 13:18 CDT Performed [...] 09/06/2017 13:17 CDT General Info Languages : Micronesian Is Patient Female and 13-50 no hysterectomy : No LAVERNE CONTI LPN - 09/06/2017 13:17 CDT Subjective Pain Symptoms : No LVAERNE CONTI LPN - 09/06/2017 13:17 CDT Dependent [...] CONTI LPN - 09/06/2017 13:17 CDT Source: [employer] Document Id: [id number] CDT!31 documented in this encounter Plan of Treatment Upcoming Encounters Date Type Specialty Care Team Description 10/19/2022 Procedure visit Neurology Marina Winter M.D., M.P.H. [address] [place], [place] [phone] (Wo rk) Scheduled Procedures [...] for FH and FDB is available throu [facility]: FH/ADH Genetic Reflex Pisano el (test ADHP). Acquired (non-genetic) causes of markedly increased LDL cholesterol include cholestatic liver disease due to the presence of LpX. If a genetic form of hypercholesterolemia is suspected, family studies including biochemical testing fo r lipids (total cholesterol,triglycerides, LDL cholesterol and HDL cholesterol) are recommended. ??Please contact the laboratory at or the on-line test catalog at [employer] for information about how to order these [...] documented as of this encounter Care Teams Client Technical Support Associate Relationship Specialty Start Date End Date Annemarie Montiel M.D. PCP - General 04/19/17 [address] [place] [address] documented as of this encounter
--- OUTSIDE RECORDS SUMMARY | 2022-09-05 06:10 | XMS_ITS | Encounter Summary ---
:1985 Author Organization [facility] Address [address] [place] [address] Care Team Providers Name Role Phone Annemarie Montiel M.D. Primary Care Provider [phone] Reason for Visit Reason Comments Med Refill Encounter Details Date Type Department Care Team Description 02/27/2018 Refill Department of Yenifer Song M.D. Med Refill Medicine, [facility], [address] [place] [address] [address] [place] [address] [facility] [phone] Social History Tobacco Use Types Packs/Day Years [...] How often do you attend catholic or adventist Never 07/04/2019 services? 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 [address] [place], [place] [phone] (Wo rk) Scheduled Procedures Name Priority Associated Diagnoses Date/Time LIFT THIGH Excessive And Redundant Skin And Subcutaneous Tissue documented as of this encounter Visit Diagnoses Not on filedocumented in this encounter Additional Health Concerns Assessment Noted Time PHQ-9 Depression Total Score: 13 08/21/2017 12:55 PM C DT documented as of this encounter Care Teams Diesel Engine Mechanic Apprentice Relationship Specialty Start Date End Date Annemarie Montiel M.D. PCP - General 04/[address] [place] [address] documented as of this encounter
--- OUTSIDE RECORDS SUMMARY | 2022-09-05 06:10 | XMS_ITS | Encounter Summary ---
:1985 Author Organization [facility] Address [address] [place] [address] Care Team Providers Name Role Phone Annemarie Montiel M.D. Primary Care Provider [phone] Reason for Referral Specialty Diagnoses / Procedures Referred By Contact Refer red To Contact Annemarie Montiel M.D. [facility] [address] [place] [address] Referral ID Status Reason Start Date Expiration Date Visits Requ ested Visits Authorized Scheduling Instructions Maria Elena Smith [place] E RACING MANAGER Reason for Visit Reason Comments Med Refill Appointment Request (Routine) - Closed Specialty Diagnoses / Procedures Referred By Contact Refer tayler To Contact Family Medicine Referral ID Status Reason Start Date Expiration Date Visits Requ ested Visits Authorized [id number] Closed 09/09/2018 09/09/2019 1 Encounter Details Date Type Department Care Team Description 10/16/2018 Office Visit Department of Annemarie Song Depression Major Recurrent (HCC) (Primary Dx); MedicinePorfirio M.D. Anxiety Generalized Disorder; Clinic, in [place], [address] Surgery Bariatric Status Post [place], [place] [address] [address] [place], [place] [phone] (Wo rk) [address] [phone] Social History Tobacco Use Types Packs/Day Years [...] How often do you attend episcopalian or voodoo Never 07/04/2019 services? Do you belong to any clubs or organizations such as No 07/04/2019 episcopalian groups, unions, fraSaset Healthcare or athletic groups, or school groups? How [...] Date Recorded Female 10/16/2018 10:53 AM HORSE RACING MANAGER documented as of this encounter Last Filed Vital Signs Vital Sign Reading Time Taken Comments Blood Pressure 128/70 10/16/2018 11:07 AM HORSE RACING MANAGER Pulse 68 10/16/2018 11:07 AM HORSE RACING MANAGER Temperature 36.3 ??C (97.3 ??F) 10/16/2018 11:07 AM HORSE RACING MANAGER Respiratory Rate - - Oxygen Saturation - - Inhaled Oxygen Concentration - - Weight 106 kg (232 lb 12.9 oz) 10/16/2018 11:07 AM HORSE RACING MANAGER Height - - Body Mass Index 37.64 03/27/2018 5:00 PM CDT documented in this encounter Patient Instructions Patient InstructionsClAnnemarie howell M.D. - 10/16/2018 11:15 AM CST Labs today are for Vitamin levels and electrolytes, iron--some patients need shots of B12 I will have results in 3-4 days Set up Power Sweeper Operator Appt E RACING MANAGER documented in this encounter Progress Notes Annemarie [...] her family and has moved back to [place]. It is noted that she has been [...] their behalf by Lidia huertas trained medical assistant supervisor. The creation of this record is basedon the scribe's personal observations and the provider's statements to them. This document has been c hecked and approved by the attending provider. E RACING MANAGER documented in this encounter Plan of Treatment Upcoming Encounters Date Type Specialty Care Team Description 10/19/2022 Procedure visit Neurology Marina Winter M.D., M.P.H. [address] [place], [place] [phone] (Wo rk) Scheduled Procedures Name Priority Associated Diagnoses Date/Time LIFT THIGH Excessive And Redundant Skin And Subcutaneous Tissue Scheduled Referrals Name Type Priority Associated Diagnoses Order S chedule Nutrition - Diet Outpatient Referral Routine Surgery Bariatric Expected: education visit Status Post 10/16/2018 (clinic) (Approximate), Expires: 10/16/2021 documented as of this encounter Results Magnesium (10/16/2018 12:52 PM HORSE RACING MANAGER) P athologist Signature Magnesium, S 1.7 1.7 - 2.3 10/16/2018 [facility] mg/dL 2:57 PM HORSE RACING MANAGER [facility] Specimen Anatomical Collection Method Collection Time Receive d Time (Source) Location / / Volume Laterality Blood (Blood, 10/16/2018 12:52 10/16/2018 1:29 Venous) PM HORSE RACING MANAGER PM HORSE RACING MANAGER Annemarie Montiel M.D. LAB BLOOD ADD-ON Performing Organization Address City/State/ZIP Code Phon e Number [facility] [address] [place] [address] LAB CBC without Differential (10/16/2018 12:52 PM HORSE RACING MANAGER) athologist Signature Hemoglobin 14.0 11.6 - 10/16/2018 [facility] 15.0 g/dL 1:[address] [facility] Hematocrit 41.2 35.5 - 10/16/2018 [facility] 44.9 % 1:[address] [facility] Erythrocytes 4.72 3.92 - 10/16/2018 [facility] 5.13 1:33 PM [facility] x10(12)/L [facility] MCV 87.3 78.2 - 10/16/2018 [facility] 97.9 fL 1:[address] [facility] RBC Distrib Width 14.3 12.2 - 10/16/2018 [facility] 16.1 % 1:[address] [facility] Platelet Count 255 157 - 371 10/16/2018 [facility] x10(9)/L 1:[address] [facility] Leukocytes 8.3 3.4 - 9.6 10/16/2018 [facility] x10(9)/L 1:[address] [facility] Specimen Anatomical Collection Method Collection Time Receive d Time (Source) Location / / Volume Laterality Blood (Blood, 10/16/2018 12:52 10/16/2018 1:29 Venous) PM HORSE RACING MANAGER PM HORSE RACING MANAGER Annemarie Montiel M.D. LAB BLOOD ADD-ON Performing Organization Address City/State/ZIP Code Phon e Number [facility] [address] [place] [address] LAB Ferritin (10/16/2018 12:52 PM [facility]) P athologist Signature Ferritin, S 116 13 - 150 10/16/2018 [facility] mcg/L 2:[address] [facility] Comment: Biotin has been identified [...] (Blood, 10/16/2018 12:52 10/16/2018 1:29 Venous) PM HORSE RACING MANAGER PM HORSE RACING MANAGER Annemarie Montiel M.D. LAB BLOOD ADD-ON Performing Organization Address City/[facility]/ZIP Code Phon e Number [facility] [address] [place] [address] LAB Vitamin B12 Assay (10/16/2018 12:52 PM HORSE RACING MANAGER) P athologist Signature Vitamin B12 438 219 - 4688 10/16/2018 [facility] Assay, S ng/L 4:57 PM HORSE RACING MANAGER [facility] Comment: Biotin has been identified [...] (Blood, 10/16/2018 12:52 10/16/2018 4:05 Venous) PM HORSE RACING MANAGER PM HORSE RACING MANAGER Annemarie Montiel M.D. LAB BLOOD ADD-ON Performing Organization Address City/[facility]/ZIP Code Phon e Number [facility]- [address] [place] [address] [place] LAB S-TSH (Thyroid-Stimulating Hormone - Sensitive) (10/16/2018 12:52 PM HORSE RACING MANAGER) P athologist Signature TSH, Sensitive 0.8 0.3 - 4.2 10/16/2018 [facility] mIU/L 2:57 PM HORSE RACING MANAGER [facility] Comment: Biotin has been identified [...] (Blood, 10/16/2018 12:52 10/16/2018 1:29 Venous) PM HORSE RACING MANAGER PM HORSE RACING MANAGER Annemarie Montiel M.D. LAB BLOOD ADD-ON Performing Organization Address City/State/ZIP Code Phon e Number [facility] [address] [place] [address] LAB (ABNORMAL) BMP (Basic Metabolic Panel) (10/16/2018 12:52 PM HORSE RACING MANAGER) Analysis Performed At Patho logist Time Signature Potassium, S 3.5 (L) 3.6 - 5.2 10/16/2018 [facility] mmol/L 2:[address] [facility] Sodium, S 146 (H) 135 - 145 10/16/2018 [facility] mmol/L 2:[address] [facility] Chloride, S 103 98 - 107 10/16/2018 [facility] mmol/L 2:[address] [facility] Bicarbonate, S 29 22 - 29 10/16/2018 [facility] mmol/L 2:[address] [facility] Anion Gap 14 7 - 15 10/16/2018 [facility] 2:[address] [facility] BUN (Blood Urea 5 (L) 6 - 21 10/16/2018 [facility] Nitrogen), S mg/dL 2:[address] [facility] Creatinine 0.47 (L) 0.59 - 10/16/2018 [facility] 1.04 mg/dL 2:[address] [facility] eGFR-Non >90 >=60 10/16/2018 [facility] Black/ mL/min/BSA 2:57 PM [facility] Comment: ----ADDITIONAL INFORMATION---- Estimated GFR calculated using the 2009 CKD_EPI creatinine equation. eGFR-Black/ >90 >=60 mL/min/BSA 2017 2:57 PM [facility] Comment: ----ADDITIONAL INFORMATION---- Estimated GFR calculated using the 2009 CKD_EPI creatinine equation. Calcium, Total, S 9.4 8.6 - 10.0 mg/dL 10/16/2018 2 :57 PM [facility] Glucose, S 84 70 - 140 mg/dL 10/16/2018 2:57 PM HORSE RACING MANAGER [facility] Specimen Anatomical Collection Method Collection Time Receive d Time (Source) Location / / Volume Laterality Blood (Blood, 10/16/2018 12:52 10/16/2018 1:29 Venous) PM HORSE RACING MANAGER PM HORSE RACING MANAGER Annemarie Montiel M.D. LAB BLOOD ADD-ON Performing Organization Address City/State/ZIP Code Phon e Number [facility] [address] [place] [address] LAB 25-Hydroxyvitamin D2 and D3 (10/16/2018 12:52 PM HORSE RACING MANAGER) P athologist Signature 25-Hydroxy D2 <4.0 ng/mL 10/18/2018 [facility] 3:01 PM HORSE RACING MANAGER [facility] 25-Hydroxy D3 33 ng/mL 10/18/2018 [facility] 3:01 PM HORSE RACING MANAGER [facility] 25-Hydroxy D 33 ng/mL 10/18/2018 [facility] Total 3:01 PM HORSE RACING MANAGER [address] Comment: ----REFERENCE VALUE---- 25-HYDROXY D TOTAL (D2+D3) Optimum level s in the healthy population are 20-50, patients with bone disease may benefit from higher levels within this r maria alejandra. ----ADDITIONAL INFORMATION---- This test was developed and its performa nce characteristics determined by [facility] in a manner consistent with CLIA requirements. This test has not been cleared or approved by the [place]. Domin[place] d and Drug Administration. Specimen Anatomical Collection Method Collection Time Receive d Time (Source) Location / / Volume Laterality Blood (Blood, 10/16/2018 12:52 10/17/2018 9:28 Venous) PM HORSE RACING MANAGER AM HORSE RACING MANAGER Annemarie Montiel M.D. LAB BLOOD ADD-ON Performing Organization Address City/State/ZIP Code Phon e Number [facility] [address] [place], [place] [address] [facility] documented in this encounter Visit Diagnoses Diagnosis Depression Major Recurrent (HCC) - Prima ry Anxiety Generalized Disorder Surgery Bariatric Status Post documented in this encounter Additional Health Concerns Assessment Noted Time PHQ-9 Depression Total Score: 15 10/16/2018 11:[address] documented as of this encounter Care Teams Knot Tier Relationship Specialty Start Date End Date Annemarie Montiel M.D. PCP - General 04/19/17 [address] [place] [address] documented as of this encounter
--- OUTSIDE RECORDS SUMMARY | 2022-09-05 06:10 | XMS_ITS | Encounter Summary ---
:1985 Author Organization [facility] Address [address] [place] [address] Care Team Providers Name Role Phone Annemarie Montiel M.D. Primary Care Provider [phone] Encounter Details Date Type Department Care Team Description 10/16/2018 Orders Only Department of Annemarie Song, Surgery Bariatric Medicine, Porfirio Jaramillo Status Post (Primary Clinic, in [place], [address] Dx) [place], [place] [address] [address] [place], [place] [phone] (Wo rk) [address] [phone] Social History Tobacco Use Types Packs/Day Years [...] How often do you attend sikhism or worship Never 07/04/2019 services? 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 [address], [place] [address] (Wo rk) Scheduled Procedures Name Priority Associated Diagnoses Date/Time LIFT THIGH Excessive And Redundant Skin And Subcutaneous Tissue documented as of this encounter Visit Diagnoses Diagnosis Surgery Bariatric Status Post - Primary documented in this encounter Additional Health Concerns Assessment Noted Time PHQ-9 Depression Total Score: 15 10/16/2018 11:[address] documented as of this encounter Care Teams Paper Bag Machine Operator Relationship Specialty Start Date End Date Annemarie Montiel M.D. PCP - General 04/19/[address] [address] documented as of this encounter
--- OUTSIDE RECORDS SUMMARY | 2022-09-05 06:10 | XMS_ITS | Encounter Summary ---
:1985 Author Organization [facility] Address [address] [place] [address] Care Team Providers Name Role Phone Annemarie Montiel M.D. Primary Care Provider [phone] Encounter Details Date Type Department Care Team Description 11/20/2018 Hospital Encounter Department of Annemarie Montiel For Venereal Disease; Laboratory Medicine Ella Zuniga Surgery Bariatric Status Post in [facility] [address] [facility] [place], [place] [address] [facility] [address] [place], [place] [phone] (Work) [phone] Social History Tobacco Use Types Packs/Day Years [...] How often do you attend mu-ism or oriental orthodox Never 07/04/2019 services? Do [...] at Date Recorded Female 10/16/2018 10:53 AM BLASTING CAP ASSEMBLER documented as of this encounter Medications at [...] Nicki Montiel MD Department of Family Medicine [facility] TING CAP ASSEMBLER documented in this encounter Plan of Treatment Upcoming Encounters Date Type Specialty Care Team Description 10/19/2022 Procedure visit Neurology Marina Winter M.D., M.P.H. [address] [phone] (Wo rk) Scheduled Procedures Name Priority Associated Diagnoses Date/Time LIFT THIGH Excessive And Redundant Skin And Subcutaneous Tissue documented as of this encounter Procedures Procedure Name Priority Date/Time Associated Diagnosis Comme nts HIV-1 P24 AG, Routine 11/20/2018 4:58 PM Screening For Results for this HIV-1/2 AB SCRN, P BLASTING CAP ASSEMBLER Venereal Disease proce dure are in the results section. SYPHILIS TOTAL AB Routine 11/20/2018 4:58 PM Screening For Res ults for this W/ REFLEX S BLASTING CAP ASSEMBLER Venereal Disease procedure a re in the results section. CBC WITHOUT Routine 11/20/2018 4:58 PM Surgery Bariatric Resu lts for this DIFFERENTIAL, B BLASTING CAP ASSEMBLER Status Post procedure ar e in the results section. POTASSIUM, S/P Routine 11/20/2018 4:58 PM Surgery Bariatric Re sults for this BLASTING CAP ASSEMBLER Status Post procedure are i n the results section. VITAMIN B12 ASSAY, Routine 11/20/2018 4:58 PM Surgery Bariatri c Results for this S BLASTING CAP ASSEMBLER Status Post procedure are i n the results section. documented in this encounter Results HIV-1 p24 Ag, HIV-1/2 Ab Scrn, P (11/20/2018 4:58 PM BLASTING CAP ASSEMBLER) athologist Signature HIV Ag/Ab Negative Negative 11/25/2018 [facility] ER Screen, P 7:[address] [facility] Comment: Negative result does not rule out HIV in fection. If exposure to HIV infection occurred <14 d ays ago, contact the laboratory to request additi on of HIV-1 RNA detection / quantification test. HIV-1 p24 Ag Screen, Negative Negative 11/25/2018 7:50 AM [facility] Comment: Negative result does not rule out HIV in fection. If exposure to HIV infection occurred <14 d ays ago, contact the laboratory to request additi on of HIV-1 RNA detection / quantification test. HIV-1 Ab Screen, P Negative Negative 11/25/2018 7:50 AM [facility]: Negative result does not rule out HIV in fection. If exposure to HIV infection occurred <14 d ays ago, contact the laboratory to request additi on of HIV-1 RNA detection / quantification test. HIV-2 Ab Screen, P Negative Negative 11/25/2018 7:50 AM [facility] Comment: Negative result does not rule out HIV in fection. If exposure to HIV infection occurred <14 d ays ago, contact the laboratory to request additi on of HIV-1 RNA detection / quantification test. Specimen Anatomical Collection Method Collection Time Receive d Time (Source) Location / / Volume Laterality Blood (Blood, 11/20/2018 4:58 PM 11/21/19 19 Venous) BLASTING CAP ASSEMBLER 11:33 AM BLASTING CAP ASSEMBLER Annemarie Montiel M.D. LAB MICROBIOLOGY - BLOOD ORD ERABLES Performing Organization Address City/State/ZIP Code Phon e Number [facility] [address] [place] [address], [place] [address] [facility] (ABNORMAL) Potassium (11/20/2018 4:58 PM BLASTING CAP ASSEMBLER) athologist Signature Potassium, S 3.4 (L) 3.6 - 5.2 11/20/2018 [facility] ER mmol/L 5:59 PM [facility] Specimen Anatomical Collection Method Collection Time Receive d Time (Source) Location / / Volume Laterality Blood (Blood, 11/20/2018 4:58 PM 11/20/19 5:00 Venous) BLASTING CAP ASSEMBLER PM BLASTING CAP ASSEMBLER Annemaire Montiel M.D. LAB BLOOD ADD-ON Performing Organization Address City/State/ZIP Code Phon e Number [facility] [address] [place] [id number] LAB CBC without Differential (11/20/2018 4:58 PM BLASTING CAP ASSEMBLER) athologist Signature Hemoglobin 12.7 11.6 - 11/20/2018 [facility] ER 15.0 g/dL 5:02 PM [facility] Hematocrit 38.5 35.5 - 11/20/2018 [facility] ER 44.9 % 5:02 PM [facility] Erythrocytes 4.34 3.92 - 11/20/2018 [facility] ER 5.13 5:02 PM [facility] x10(12)/L [facility] MCV 88.7 78.2 - 11/20/2018 [facility] ER 97.9 fL 5:02 PM [facility] RBC Distrib Width 13.8 12.2 - 11/20/2018 [facility] ER 16.1 % 5:02 PM [facility] Platelet Count 329 157 - 371 11/20/2018 [facility] ER x10(9)/L 5:02 PM [facility] Leukocytes 7.6 3.4 - 9.6 11/20/2018 [facility] ER x10(9)/L 5:02 PM BLASTING CAP ASSEMBLER [facility] Specimen Anatomical Collection Method Collection Time Receive d Time (Source) Location / / Volume Laterality Blood (Blood, 11/20/2018 4:58 PM 11/20/19 19 5:00 Venous) BLASTING CAP ASSEMBLER PM BLASTING CAP ASSEMBLER Annemarie Montiel M.D. LAB BLOOD ADD-ON Performing Organization Address City/State/ZIP Code Phon e Number [facility] [place] [address] [place] [address] LAB Vitamin B12 Assay (11/20/2018 4:58 PM BLASTING CAP ASSEMBLER) athologist Signature Vitamin B12 888 053 - 1247 11/20/2018 [facility] ER Assay, S ng/L 9:44 PM BLASTING CAP ASSEMBLER [facility] Comment: Biotin has been identified [...] 11/20/2018 4:58 PM 11/20/19 19 9:05 Venous) BLASTING CAP ASSEMBLER PM BLASTING CAP ASSEMBLER Annemarie Montiel M.D. LAB BLOOD ADD-ON Performing Organization Address City/State/ZIP Code Phon e Number [facility]- [address] [place] [address] [facility] Syphilis IgG Antibody with Reflex (11/20/2018 4:58 PM BLASTING CAP ASSEMBLER) athologist Signature Syphilis IgG Negative Negative 11/22/2018 [facility] ER Ab, S 12:20 PM BLASTING CAP ASSEMBLER [facility] Comment: No serologic evidence of exposu re to syphilis. Specimen Anatomical Collection Method Collection Time Receive d Time (Source) Location / / Volume Laterality Blood (Blood, 11/20/2018 4:58 PM 11/21/19 19 Venous) BLASTING CAP ASSEMBLER 11:33 AM BLASTING CAP ASSEMBLER Annemarie Montiel M.D. LAB BLOOD ADD-ON Performing Organization Address City/State/ZIP Code Phon e Number [facility]- [address] [facility], [place] [phone] [facility] documented in this encounter Visit Diagnoses Diagnosis Screening For Venereal Disease Surgery Bariatric Status Post documented in this encounter Additional Health Concerns Assessment Noted Time PHQ-9 Depression Total Score: 18 11/01/2018 8:11 AM CS T documented as of this encounter Care Teams Musical Instrument Supervisor Relationship Specialty Start Date End Date Annemarie Montiel M.D. PCP - General 04/19/[address] [phone] documented as of this encounter
--- OUTSIDE RECORDS SUMMARY | 2022-09-05 06:10 | XMS_ITS | Encounter Summary ---
:1985 Author Organization [facility] Address [address] [place] [address] Care Team Providers Name Role Phone Annemarie Montiel M.D. Primary Care Provider [phone] Reason for Visit Reason Comments med check Sore Throat and coughing for the last we ek Encounter Details Date Type Department Care Team Description 03/27/2018 Office Visit Department of Annemarie Song, Depression Major Recurrent (HCC) (Primary Dx); Porfirio Valdes M.D. Anxiety Generalized Disorder; Clinic, in [place], [address] Morbid Obesity Body Mass Index Greater T rivas Or Equal To 40 Adult (HCC); [place], [place] Infection Upper Respiratory [address] [address] [place], [place] [phone] (Wo rk) [address] [phone] Social History Tobacco Use Types Packs/Day Years [...] How often do you attend pentecostal or buddhism Never 07/04/2019 services? 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 [facility] Patient has felt more irritable [...] their behalf by Karen huertas trained medical office secretary. The creation of this record is based on the scribe's personal observations and the provider's statements to them. This document has been checked and approved by the attending provider. documented in this encounter Plan of Treatment Upcoming Encounters Date Type Specialty Care Team Description 10/19/2022 Procedure visit Neurology Marina Winter M.D., M.P.H. [address] [place], [place] [phone] (Wo rk) Scheduled Procedures [...] documented as of this encounter Care Teams Hyperbaric Technologist Relationship Specialty Start Date End Date Annemarie Montiel M.D. PCP - General 04/19/172199 [place] [address] documented as of this encounter
--- OUTSIDE RECORDS SUMMARY | 2022-09-05 06:10 | XMS_ITS | Encounter Summary ---
:1985 Author Organization [facility] Address [address] [place] [address] Care Team Providers Name Role Phone Annemarie Montiel M.D. Primary Care Provider [phone] Reason for Visit Reason Comments Foreign Body in Skin Encounter Details Date Type Department Care Team Description 02/09/2018 Emergency [facility] Foreign Body Arm [address] Superficial Initial Left [place] [phone] (Primary Dx) [phone] Social History Tobacco Use Types Packs/Day Years [...] How often do you attend advent or sabianist Never 07/04/2019 services? 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 [facility] Prescription [facility] Prescription 0 07/17/2017 12/16/2019 (Allergy Immunotherapy) [place] [...] visit Neurology Marina Winter M.D., M.P.H. [address] [place] [phone] (Wo rk) Scheduled Procedures Name [...] documented as of this encounter Care Teams One Piece Expansion Maker Hand Relationship Specialty Start Date End Date Annemarie Montiel M.D. PCP - General 04/19/[address] [place] [address] [place] [phone] documented as of this encounter
--- OUTSIDE RECORDS SUMMARY | 2022-09-05 06:11 | XMS_ITS | Encounter Summary ---
:1985 Author Organization [facility] Address [address] [place] [address] Care Team Providers Name Role Phone Unavailable Primary Care Provider Unavailable Encounter Details Date Type Department Care Team Description 11/24/2016 Hospital Encounter HX [facility] Ranjit Lee M.D. [address] [place], [place] [phone] [...] How often do you attend temple or latter day Never 07/04/2019 services? 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 - 11/24/2016 1:49 PM CST [id number] CHIEF COMPLAINT/REASON FOR VISIT OB followup. HISTORY [...] MELISSA MD On: 12/05/2016 08:48 PM Source: [facility] MHSDOLBEYNONRADSYS Document Id: [id number] ING MACHINE OPERATOR documented in this encounter Procedure Notes Tonya العلي L.P.NRodrigo - 11/24/2016 3:20 PM CST Urine Dipstick Urine Dipstick Entered On: 11/24/2016 15:20 LAGGING MACHINE OPERATOR Performed On: 11/24/2016 15:20 LAGGING MACHINE OPERATOR by TONYA العلي LPN Urine Dipstick UA Color POC : Yellow UA Appear POC : Clear UA Protein POC : Trace UA Glucose POC : Negative TONYA العلي LPN - 11/24/2016 15:20 LAGGING MACHINE OPERATOR Source: [facility] POWERCHART Document Id: [id number] LAGGING MACHINE OPERATOR!6 ING MACHINE OPERATOR Cassie Melissa M.D. - 11/24/2016 12:00 AM [...] MELISSA MD On: 12/05/2016 08:41 PM Source: [facility] MHSDOLBEYNONRADSYS Document Id: [id number] ING MACHINE OPERATOR documented in this encounter Miscellaneous Notes Miscellaneous - Cassie Melissa M.D. - 11/24/2016 5:42 PM CST Ambulatory Patient Summary [address] [id number] Visit Information Name: ALANJOSEPHINENANCY ELIZABETH [facility] Number: [id number] Current Date: 11/24/2016 17:42:16 Physicians [...] Date Time Location Provider 12/01/2016 13:00 [facility] CLOTHING CONSULTANT Cassie Melissa [facility] Nicki Zuniga Attention: Contact [...] dont have one. Go to [email or web address] and click on Create Your Account. Then, follow the directions to complete the online form. Youll be asked for your [facility] number which you can find at the top of this document. Your Goals/Additional instructions: Source: [facility] POWERCHART Document Id: [id number] ING MACHINE OPERATOR Miscellaneous - Cassie Melissa M.D. - 11/24/2016 5:42 PM CST Ambulatory Discharge Medication List [address] [id number] Visit Information Name: NANCY PHILLIPS [facility] Number: [id number] Current Date: 11/24/2016 17:42:15 Attending Provider: CASSIE MELISSA MD Primary Care Provider: MAILE ZARATE MD NANCY PIHLLIPS has been given the following list of [...] MD Signed On:24-NOV-2016 17:42:13 Additional Information: Source: [facility] POWERCHART Document Id: [id number] ING MACHINE OPERATOR Telephone Encounter - Tonya العلي L.P.N. - 11/24/2016 4:58 PM LAGGING MACHINE OPERATOR *Phone Message Document Contains Addenda Addendum by CASSIE MELISSA MD on November 24, 2016 17:25:41 LAGGING MACHINE OPERATOR Noted From: TONYA العلي LPN ( Obstetrics/Gynecology Nurse) To: CASSIE MELISSA MD; Sent: 11/24/2016 16:58:46 LAGGING MACHINE OPERATOR Subject: *Phone Message Caller is: ( X [...] back cell phone number ( ) Source: [facility] Chevia Document Id: [id number] Electronically signed by Maria R [facility] Supervisor [employer] [id number] at 04/17/2017 3:49 AM CDT Miscellaneous - Tonya العلي LRodrigoP.N. - 11/24/2016 2:59 PM CST Stone Driller Documentation Stone Driller Documentation Entered On: 11/24/2016 15:00 LAGGING MACHINE OPERATOR Performed On: 11/24/2016 14:59 LAGGING MACHINE OPERATOR by TONYA العلي LPN Stone Driller Documentation Exam/Procedure Performed : Cervical check CD Stone Driller Present : Yes CD Stone Driller Name : Susana العلي LPN Present in Room During Exam/Procedure : Other: Sister, nadeem TONYA العلي LPN - 11/24/2016 14:59 LAGGING MACHINE OPERATOR Source: [facility] [place] Document Id: [id number] LAGGING MACHINE OPERATOR!6 ING MACHINE OPERATOR Miscellaneous - Tonya العلي L.P.N. - 11/24/2016 2:38 PM CST Adult Seismic Prospecting Observer Intake/History Adult Seismic Prospecting Observer Intake/History Entered On: 11/24/2016 14:40 LAGGING MACHINE OPERATOR Performed On: 11/24/2016 14:38 LAGGING MACHINE OPERATOR by TONYA العلي LPN Intake Chief Complaint [...] kg/m2 TONYA العلي LPN - 11/24/2016 14:38 LAGGING MACHINE OPERATOR General Info Languages : Ukrainian Is Patient Female and 13-50 no hysterectomy : Yes Status : Confirmed positive Are you ? : No TONYA العلي LPN - 11/24/2016 14:38 LAGGING MACHINE OPERATOR Subjective Pain Symptoms : No TONYA العلي LPN - 11/24/2016 14:38 LAGGING MACHINE OPERATOR Dependent Habits Exposure to Tobacco Smoke : Other: never Smoking Status : Never smoker Tobacco 2A : No Tobacco Use/Currently Using : No Tobacco Use/Last 30 Days : No Tobacco Use/Last 12 months : No TONYA العلي LPN - 11/24/2016 14:38 LAGGING MACHINE OPERATOR Caffeine Use Grid Caffeine Use : Current Type : Soft drinks Frequency : Daily Amount : regular 1-2 cans daily TONYA العلي LPN - 11/24/2016 14:38 LAGGING MACHINE OPERATOR Source: [facility] POWERCHART Document Id: [id number] LAGGING MACHINE OPERATOR!35 ING MACHINE OPERATOR Telephone Encounter - Conversion, Historical Provider Ser - 11/02/2016 9:23 AM CST *Phone Message Document Contains Addenda Addendum by TONYA العلي LPN on November 02, 2016 13:00:50 LAGGING MACHINE OPERATOR Patient notified, she was added to the schedule. Addendum by CASSIE MELISSA MD on November 02, 2016 12:40:41 LAGGING MACHINE OPERATOR From: CASSIE MELISSA MD To: FB Obstetrics/Gynecology Nurse; Sent: 11/02/2016 12:40:41 LAGGING MACHINE OPERATOR Subject: RE: *Phone Message Please have her come here as soon as she is able and I will see her. Addendum by RADHA HAMMOND RN on November 02, 2016 11:28:25 LAGGING MACHINE OPERATOR From: RADHA HAMMOND RN ( Obstetrics/Gynecology Nurse) To: CASSIE MELISSA MD; Sent: 11/02/2016 11:28:25 LAGGING MACHINE OPERATOR Subject: FW: *Phone Message Spoke with Nancy. [...] [facility] or if you would like to see her sooner. Denies any bleeding or leaking of fluids. Positive movement. States shehad a lot of mucousy discharge on Sunday but has had no other abnormal discharge since. From: RAZ WARREN ([facility] Food Service Utility Worker) To: Obstetrics/Gynecology Nurse; Sent: 11/02/2016 09:23:04 LAGGING MACHINE OPERATOR Subject: *Phone Message Caller is: ( x [...] next appt. Please call her back at [phone] Advice/Action: Source used: ( ) Verbalizes understanding [...] back cell phone number ( ) Source: [facility] POWERCHART Document Id: [id number] documented in this encounter Plan of Treatment Upcoming Encounters Date Type Specialty Care Team Description 10/19/2022 Procedure visit Neurology Marina Winter M.D., M.P.H. [address] [phone] (Wo rk) Scheduled Procedures Name Priority Associated Diagnoses Date/Time LIFT THIGH Excessive And Redundant Skin And Subcutaneous Tissue documented as of this encounter Procedures Procedure Name Priority Date/Time Associated Comments Diagnosis DIPSTICK, POCT, U Routine 11/24/2016 3:20 PM Resu lts for this (NURSING) INTERFACED LAGGING MACHINE OPERATOR procedu re are in the results section. documented in this encounter Results Dipstick, POCT, Urine (nursing) (11/24/2016 3:20 PM LAGGING MACHINE OPERATOR) Analysis Performed At [facility] Time Signature Color Yellow POWERCHART Appearance Clear POWERCHART Protein, POCT, Trace POWERCHART U Glucose, POCT, Negative POWERCHART U Specimen (Source) Anatomical Collection Method Collection Time Re ceived Time Location / / Volume Laterality 11/24/2016 3:20 PM LAGGING MACHINE OPERATOR Cassie Melissa M.D. LAB POCT ORDERABLES - DEVICE Performing Organization Address City/State/ZIP Code Phon e Number POWERCHART documented in this encounter Visit Diagnoses Not on filedocumented in this encounter Additional Health Concerns Assessment Noted Time PHQ-9 Depression Total Score: 13 06/14/2015 3:56 PM CD T documented as of this encounter
--- OUTSIDE RECORDS SUMMARY | 2022-09-05 06:11 | XMS_ITS | Encounter Summary ---
:1985 Author Organization [facility] Address [address] [place] [address] Care Team Providers Name Role Phone Annemarie Montiel M.D. Primary Care Provider [phone] Encounter Details Date Type Department Care Team Description 08/09/2017 Hospital Encounter HX [facility] Ramsey Valero A PRN, C.N.P., M.S.N. [...] How often do you attend protestant or anglican Never 07/04/2019 services? 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 - 08/09/2017 1:56 PM CDT Ambulatory Patient Summary [address], [place] [id number] Visit Information Name: NANCY PHILLIPS [facility] Number: [id number] Current Date: 08/09/2017 13:56:18 Physicians [...] 1 Tablet(s), Oral, once New Routed to [facility] [address] [place] [address] [facility] Prescription ([facility] Prescription) Cocunut oil 1000mg tablet daily naproxen [...] of emergency. Electronically Signed By: RAMSEY DINH GAMBRELER HELPER Signed On:09-AUG-2017 13:56:13 Your Allergies & Intolerances [...] Dinesh RED, Nicki Zuniga 09/06/2017 13:15 OWOC MANAGER INVENTORY MANAGEMENT Ileana RED, Nahun Regalado Attention: Contact your [...] form. Youll be asked for your [facility] number which you can find at the top of this document. Your Goals/Additional instructions: Source: [facility] POWERCHART Document Id: [id number] Miscellaneous - Ramsey Dinh M.S.N. - 08/09/2017 1:56 PM CDT Ambulatory Discharge Medication List [facility] [address] [place], [place] [id number] Visit Information Name: NANCY PHILLIPS [facility] Number: [id number] Current Date: 08/09/2017 13:56:17 Attending [...] 1 Tablet(s), Oral, once New Routed to [facility] [address] [place] [address] [facility] Prescription ([facility] Prescription) Cocunut oil 1000mg tablet daily naproxen [...] NP Signed On:09-AUG-2017 13:56:13 Additional Information: Source: [facility] POWERCHART Document Id: [id number] Miscellaneous - Nusrat Miller L.PRodrigoNRodrigo - 08/09/2017 1:04 PM CDT Adult Mail Clerk Bills Intake/History Adult Mail Clerk Bills Intake/History Entered On: 08/09/2017 13:08 CDT Performed [...] Mass Index : 46.33 kg/m2 NUSRAT MILLER LPN - 08/09/2017 13:04 CDT General Info Information Given By : Patient Preferred Communication Mode : Verbal Languages : St Helenian Is Patient Female and 13-50 no hysterectomy : No NUSRAT MILLER LPN - 08/09/2017 13:04 CDT Subjective Pain Symptoms : Yes NUSRAT MILLER LPN - 08/09/2017 13:04 CDT Pain Scale Pain Scale Verbal 0-10 : Open NUSRAT MILLER LPN - 08/09/2017 13:04 CDT Pain Pain Assessment Grid Pain 1 Location : Abdomen Laterality : Left Intensity : 3 NUSRAT MILLER LPN - 08/09/2017 13:04 CDT Dependent Habits Exposure to Tobacco Smoke : Other: never Smoking Status : Never smoker Tobacco 2A : No Tobacco Use/Currently Using : No Tobacco Use/Last 30 Days : No Tobacco Use/Last 12 months : No NUSRAT MILLER LPN - 08/09/2017 13:04 CDT Caffeine Use Grid Caffeine Use : Current Type : Soft drinks Frequency : Daily Amount : regular 1-2 cans daily NUSRAT MILLER LPN - 08/09/2017 13:04 CDT Source: [employer] Document Id: [id number] CDT!46 documented in this encounter Plan of Treatment Upcoming Encounters Date Type Specialty Care Team Description 10/19/2022 Procedure visit Neurology Marina Winter M.D., M.P.H. [address] [place], [place] [phone] (Wo rk) Scheduled Procedures Name Priority Associated Diagnoses Date/Time LIFT THIGH Excessive And Redundant Skin And Subcutaneous Tissue documented as of this encounter Visit Diagnoses Not on filedocumented in this encounter Additional Health Concerns Assessment Noted Time PHQ-9 Depression Total Score: 9 12/27/2016 10:29 AM CS T documented as of this encounter Care Teams Maintenance Plumber Relationship Specialty Start Date End Date Annemarie Montiel M.D. PCP - General 04/19/17 [address], [place] [address] documented as of this encounter
--- OUTSIDE RECORDS SUMMARY | 2022-09-05 06:11 | XMS_ITS | Encounter Summary ---
:1985 Author Organization [facility] Address [address] [place] [address] Care Team Providers Name Role Phone Annemarie Montiel M.D. Primary Care Provider [phone] Encounter Details Date Type Department Care Team Description 08/21/2017 Hospital Encounter HX [facility] FAMILYPRA Meche Montiel M.D. [address] [place] [phone] (Wo rk) Social History Tobacco Use Types [...] How often do you attend anabaptism or anabaptism Never 07/04/2019 services? 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 - 08/21/2017 9:57 AM CDT [id number] CHIEF COMPLAINT / REASON FOR VISIT Medication [...] to the Endocrine and Metabolism clinic in [place] but reminded her that slow and steady [...] their behalf by Tiago Newman, a trained regional medical director. The creation of this record is based on the scribe's personal observations and the provider's statements to them. This document has been checked and approved by the attending provider. Annemarie Montiel M.D./lisa Electronically Signed By: ANNEMARIE MONTIEL MD On: 09/05/2017 08:52 PM Source: [facility] MHSDOLBEYNONRADSYS Document Id: [id number] documented in this encounter Miscellaneous Notes Miscellaneous - Steve Shoemaker, L.P.N. - 08/21/2017 12:55 PM CDT BENITA-7 [...] SHOEMAKER LPN - 08/21/2017 12:55 CDT Source: [facility] POWERCHART Document Id: [id number] CDT!11 Miscellaneous - Steve Shoemaker L.P.N. - [...] SHOEMAKER LPN - 08/21/2017 12:55 CDT Source: [employer] Private Location [employer] Document Id: [id number] CDT!13 Miscellaneous - Annemarie Montiel M.D. - 08/21/2017 11:19 AM CDT Ambulatory Patient Summary [address] [id number] Visit Information Name: NANCY PHILLIPS [facility] Number: [id number] Current Date: 08/21/2017 11:19:10 Physicians Attending Provider: ANNEMARIE MONTIEL MD Primary Care Provider: ANNEMARIE MONTIEL MD JOSEPHINE PHILLIPSSSMARIEL ORANTESE has been given the following list of [...] needed for increased anxiety New Routed to [facility] [address] [address] [facility] Prescription ([facility] Prescription) Cocunut oil 1000mg tablet daily naproxen (naproxen 250 mg oral tablet) 1 Tablet(s), Oral, two times a day as needed for pain with food oxyCODONE-acetaminophen (oxyCODONE-acetaminophen 5 mg-325 mg oral tablet) 1 Tablet(s), Oral, every 4hours as needed for Pain No more than 4,000mg acetaminophen/24hrs phentermine (phentermine 37.5 mg oral capsule) 1 cap, Oral, once a day New Routed to [facility] venlafaxine (Effexor XR 150 mg oral capsule, extended release) 1 cap, Oral, once a day This is a CHANGE Routed to [facility] [address] [...] case of emergency. Electronically Signed By: ANNEMARIE MOTNIEL MD Signed On:21-AUG-2017 11:19:04 Your Allergies & [...] Date Time Location Provider 09/06/2017 13:15 [facility] SENIOR PHP DEVELOPER Ileana RED, Nahun Regalado Attention: Contact your [...] if you dont have one. Go to [email or web address] and click on Create Your Account. Then, follow the directions to complete the online form. Youll be asked for your [facility] number which you can find at the top of this document. Your Goals/Additional instructions: Source: [facility] POWERCHART Document Id: [id number] Miscellaneous - Annemarie Montiel M.D. - 08/21/2017 11:19 AM CDT Ambulatory Discharge Medication List [address] [id number] Visit Information Name: NANCY PHILLIPS [facility] Number: [id number] Current Date: 08/21/2017 [...] needed for increased anxiety New Routed to [facility] [address] [place] [address] [facility] Prescription ([facility] Prescription) Cocunut oil 1000mg tablet daily naproxen (naproxen 250 mg oral tablet) 1 Tablet(s), Oral, two times a day as needed for pain with food oxyCODONE-acetaminophen (oxyCODONE-acetaminophen 5 mg-325 mg oral tablet) 1 Tablet(s), Oral, every 4hours as needed for Pain No more than 4,000mg acetaminophen/24hrs phentermine (phentermine 37.5 mg oral capsule) 1 cap, Oral, once a day New Routed to [facility] ven[facility]afaxine (Effexor XR 150 mg oral capsule, extended release) 1 cap, Oral, once a day This is a CHANGE Routed to [facility] [address] [place] [address] zolpidem (Ambien 10 mg oral tablet) 1 [...] MD Signed On:21-AUG-2017 11:19:04 Additional Information: Source: [facility] POWERCHART Document Id: [id number] Miscellaneous - Galina Fisher C.MSandra - 08/21/2017 10:09 AM CDT Adult Private Detective Intake/History Adult Private Detective Intake/History Entered On: 08/21/2017 10:12 CDT Performed On: 08/21/2017 10:09 CDT by GALINA FISHER [facility] Intake Chief Complaint : Med Check Temperature [...] Mass Index : 46.59 kg/m2 GALINA FISHER [facility] - 08/21/2017 10:09 CDT General Info Information Given By : Patient Languages : Chinese Is Patient Female and 13-50 no hysterectomy : No GALINA FISHER [facility] - 08/21/2017 10:09 CDT Subjective Pain Symptoms : Yes GALINA FISHER [facility] - 08/21/2017 10:09 CDT Dependent Habits Exposure to Tobacco Smoke : Other: never Smoking Status : Never smoker Tobacco 2A : No Tobacco Use/Currently Using : No Tobacco Use/Last 30 Days : No Tobacco Use/Last 12 months : No GALINA FISHER [facility] - 08/21/2017 10:09 CDT Caffeine Use Grid Caffeine Use : Current Type : Soft drinks Frequency : Daily Amount : regular 1-2 cans daily GALINA FISHER [facility] - 08/21/2017 10:09 CDT Source: [facility] POWERCHART Document Id: [id number] CDT!35 documented in this encounter Plan of Treatment Upcoming Encounters Date Type Specialty Care Team Description 10/19/2022 Procedure visit Neurology Marina Winter M.D., M.P.H. [address] [phone] (Wo ) Scheduled Procedures Name Priority Associated Diagnoses Date/Time LIFT THIGH Excessive And Redundant Skin And Subcutaneous Tissue documented as of this encounter Visit Diagnoses Not on filedocumented in this encounter Additional Health Concerns Assessment Noted Time PHQ-9 Depression Total Score: 13 08/21/2017 12:55 PM C DT documented as of this encounter Care Teams Take Away Man Relationship Specialty Start Date End Date Annemarie Montiel M.D. PCP - General 04/19/[address] [phone] documented as of this encounter
--- OUTSIDE RECORDS SUMMARY | 2022-09-05 06:11 | XMS_ITS | Encounter Summary ---
:1985 Author Organization [facility] Address [address] [place] [address] Care Team Providers Name Role Phone Unavailable Primary Care Provider Unavailable Encounter Details Date Type Department Care Team Description 02/01/2017 Hospital Encounter HX NO MAPPING Jessica Brooks, ROLANDO, P.A.-C. [address] [place], [place] [address] (Wo rk) Social History [...] How often do you attend caodaism or yazidi Never 07/04/2019 services? 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 [address] [phone] (Wo rk) Scheduled Procedures Name Priority Associated Diagnoses Date/Time LIFT THIGH Excessive And Redundant Skin And Subcutaneous Tissue documented as of this encounter Visit Diagnoses Not on filedocumented in this encounter Additional Health Concerns Assessment Noted Time PHQ-9 Depression Total Score: 9 12/27/2016 10:29 AM CS T documented as of this encounter
--- OUTSIDE RECORDS SUMMARY | 2022-09-05 06:11 | XMS_ITS | Encounter Summary ---
:1985 Author Organization [facility] Address [address] [place] [address] Care Team Providers Name Role Phone Unavailable Primary Care Provider Unavailable Encounter Details Date Type Department Care Team Description 11/21/2016 Hospital Encounter HX [facility] Cassie Lincoln M.D. [address] [place] [address] Social History Tobacco Use Types [...] How often do you attend voodoo or anabaptism Never 07/04/2019 services? 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 [address] [place] [phone] (Wo rk) Scheduled Procedures Name Priority Associated Diagnoses Date/Time LIFT THIGH Excessive And Redundant Skin And Subcutaneous Tissue documented as of this encounter Visit Diagnoses Not on filedocumented in this encounter Additional Health Concerns Assessment Noted Time PHQ-9 Depression Total Score: 13 06/14/2015 3:56 PM CD T documented as of this encounter
--- OUTSIDE RECORDS SUMMARY | 2022-09-05 06:11 | XMS_ITS | Encounter Summary ---
:1985 Author Organization [facility] Address [address] [place] [address] Care Team Providers Name Role Phone Unavailable Primary Care Provider Unavailable Encounter Details Date Type Department Care Team Description 11/20/2016 Hospital Encounter HX [facility] Ranjit Lee M.D. [address] [place], [place] [phone] (Wo rk) Social History [...] How often do you attend moravian or pentecostal Never 07/04/2019 services? 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 10. Followup: Four days. Cassei Melissa M.D./pepe Electronically Signed By: CASSIE MELISSA MD On: 12/05/2016 08:48 PM Source: [facility] MHSDOLBEYNONRADSYS Document Id: [id number] STRIAL SERVICE TECHNICIAN documented in this encounter Procedure Notes Tonya العلي LRodrigoP.NRodrigo - 11/20/2016 10:38 AM CST Urine Dipstick Urine Dipstick Entered On: 11/20/2016 10:38 INDUSTRIAL SERVICE TECHNICIAN Performed On: 11/20/2016 10:38 INDUSTRIAL SERVICE TECHNICIAN by TONYA العلي LPN Urine Dipstick UA Color POC : Yellow UA Appear POC : Clear UA Protein POC : Trace UA Glucose POC : Negative TONYA العلي LPN - 11/20/2016 10:38 INDUSTRIAL SERVICE TECHNICIAN Source: [facility] POWERCHART Document Id: [id number] INDUSTRIAL SERVICE TECHNICIAN!6 STRIAL SERVICE TECHNICIAN Cassie Melissa M.D. - 11/20/2016 12:00 AM [...] MELISSA MD On: 12/05/2016 08:41 PM Source: [facility] MHSDOLBEYNONRADSYS Document Id: [id number] STRIAL SERVICE TECHNICIAN documented in this encounter Nursing Notes Tonya العلي L.P.N. - 11/20/2016 10:07 AM CST Zika At this time, there are 3 screening questions: 1. Have you or your partner traveled outside of [place] up to 6 months prior to this ? No- Denies 2. If so, where specifically have you or your partner traveled? Country, state? NA 3. If you or your partner have traveled to [place] since April 19, 2016; where in [place] did you travel? No- Denies Electronically Signed By: TONYA العلي LPN On: 11/20/2016 10:07 AM Source: [facility] POWERCHART Document Id: [id number] STRIAL SERVICE TECHNICIAN documented in this encounter Miscellaneous Notes Miscellaneous - Cassie Melissa M.D. - 11/24/2016 5:40 PM CST Ambulatory Patient Summary [facility] [address] [place] [id number] Visit Information Name: NANCY PHILLIPS [facility] Number: [id number] Current Date: 11/24/2016 17:40:50 [...] Date Time Location Provider 12/01/2016 13:00 FBC[facility] DIESEL LOCOMOTIVE FIRER/FIREMAN Cassie Melissa MD 12/27/2016 09:45 [facility] Dinesh RED, Nicki Zuniga Attention: Contact your [...] you dont have one. Go to [email or web address] and click on Create Your Account. Then, follow the directions to complete the online form. Youll be asked for your [facility] number which you can find at the top of this document. Your Goals/Additional instructions: Source: [facility] POWERCHART Document Id: [id number] EL Hollis - Cassie Melissa M.D. - 11/24/2016 5:40 PM CST Ambulatory Discharge Medication List [address] [id number] Visit Information Name: NANCY PHILLIPS [facility] Number: [id number] Current Date: 11/24/2016 17:40:50 [...] MD Signed On:24-NOV-2016 17:40:47 Additional Information: Source: [facility] POWERCHART Document Id: [id number] EL Hollis - Cassie Melissa M.D. - 11/22/2016 5:15 PM CST Results Notification Document Contains Addenda Addendum by TONYA العلي LPN on November 27, 2016 10:46:35 INDUSTRIAL SERVICE TECHNICIAN added to chart. From: CASSIE MELISSA MD To: TONYA العلي LPN; Sent: 11/22/2016 17:15:02 INDUSTRIAL SERVICE TECHNICIAN ! Show up: 11/22/2016 17:15:02 INDUSTRIAL SERVICE TECHNICIAN Subject: Results Notification Actions: Note to Nurse Reminder Comments: Please add result to chart. Results: Date Result Type Ind Result Name MBO Review Strep B by PCR Source: [facility] [employer] Document Id: [id number] Electronically signed by Maria R, [facility] Research Project Coordinator [id number] at 04/17/2017 3:49 AM CDT Miscellaneous - Tonya العلي L.PRodrigoNRodrigo - 11/20/2016 10:34 AM CST Senior Office Support Assistant Sosa Documentation Senior Office Support Assistant Sosa Documentation Entered On: 11/20/2016 10:34 INDUSTRIAL SERVICE TECHNICIAN Performed On: 11/20/2016 10:34 INDUSTRIAL SERVICE TECHNICIAN by TONYA العلي LPN Senior Office Support Assistant Sosa Documentation Exam/Procedure Performed : Cervical check/ GBS culture CD Senior Office Support Assistant Sosa Present : Yes CD Senior Office Support Assistant Sosa Name : Susana PRADEEP العلي Present in Room During Exam/Procedure : Daughter TONYA العلي LPN - 11/20/2016 10:34 INDUSTRIAL SERVICE TECHNICIAN Source: [facility] [employer] Document Id: [id number] INDUSTRIAL SERVICE TECHNICIAN!6 STRIAL SERVICE TECHNICIAN Miscellaneous - Tonya العلي L.P.NRodrigo - 11/20/2016 10:05 AM CST Adult Derrick Builder Intake/History Adult Derrick Builder Intake/History Entered On: 11/20/2016 10:07 INDUSTRIAL SERVICE TECHNICIAN Performed On: 11/20/2016 10:05 INDUSTRIAL SERVICE TECHNICIAN by TONYA العلي LPN Intake Chief Complaint [...] 2.4 Body Mass Index : 46.96 kg/m2 TONYA العلي LPN - 11/20/2016 10:05 INDUSTRIAL SERVICE TECHNICIAN General Info Languages : Salvadorean Is Patient Female and 13-50 no hysterectomy : Yes Status : Confirmed positive Are you ? : No TONYA العلي LPN - 11/20/2016 10:05 INDUSTRIAL SERVICE TECHNICIAN Subjective Pain Symptoms : No TONYA العلي LPN - 11/20/2016 10:05 INDUSTRIAL SERVICE TECHNICIAN Dependent Habits Exposure to Tobacco Smoke : Other: never Smoking Status : Never smoker Tobacco 2A : No Tobacco Use/Currently Using : No Tobacco Use/Last 30 Days : No Tobacco Use/Last 12 months : No TONYA العلي LPN - 11/20/2016 10:05 INDUSTRIAL SERVICE TECHNICIAN Caffeine Use Grid Caffeine Use : Current Type : Soft drinks Frequency : Daily Amount : regular 1-2 cans daily TONYA العلي LPN - 11/20/2016 10:05 INDUSTRIAL SERVICE TECHNICIAN Source: [facility] POWERCHART Document Id: [id number] INDUSTRIAL SERVICE TECHNICIAN!35 STRIAL SERVICE TECHNICIAN documented in this encounter Plan of Treatment Upcoming Encounters Date Type Specialty Care Team Description 10/19/2022 Procedure visit Neurology Marina Winter M.D., M.P.H. [address] [phone] (Wo rk) Scheduled Procedures Name Priority Associated Diagnoses Date/Time LIFT THIGH Excessive And Redundant Skin And Subcutaneous Tissue documented as of this encounter Procedures Procedure Name Priority Date/Time Associated Comments Diagnosis HXSTREP GROUP B BY Routine 11/20/2016 12:52 PM Re sults for this PCR INDUSTRIAL SERVICE TECHNICIAN procedure are i n the results section. DIPSTICK, POCT, U Routine 11/20/2016 10:38 AM Res ults for this (NURSING) INTERFACED INDUSTRIAL SERVICE TECHNICIAN procedu re are in the results section. documented in this encounter Results HXSTREP GROUP B BY PCR (11/20/2016 12:52 PM INDUSTRIAL SERVICE TECHNICIAN) Patholo gist Method Time Signature HXStrep Group POWERCHART B by PCR HXFinal Negative for POWERCHART Group B Strep by PCR. Specimen (Source) Anatomical Collection Method Collection Time Re ceived Time Location / / Volume Laterality Vaginal/Rectum 11/20/2016 12:52 PM INDUSTRIAL SERVICE TECHNICIAN Cassie Melissa M.D. LAB HISTORICAL ORDERS Performing Organization Address [facility] Phon e Number POWERCHART Dipstick, POCT, Urine (nursing) (11/20/2016 10:38 AM INDUSTRIAL SERVICE TECHNICIAN) [facility] Signature Color Yellow POWERCHART Appearance Clear POWERCHART Protein, POCT, Trace POWERCHART U Glucose, POCT, Negative POWERCHART U Specimen (Source) Anatomical Collection Method Collection Time Re ceived Time Location / / Volume Laterality 11/20/2016 10:38 AM INDUSTRIAL SERVICE TECHNICIAN Cassie Melissa M.D. LAB POCT ORDERABLES - DEVICE Performing Organization Address [facility] Phon e Number POWERCHART documented in this encounter Visit Diagnoses Not on filedocumented in this encounter Additional Health Concerns Assessment Noted Time PHQ-9 Depression Total Score: 13 06/14/2015 3:56 PM CD T documented as of this encounter
--- OUTSIDE RECORDS SUMMARY | 2022-09-05 06:11 | XMS_ITS | Encounter Summary ---
:1985 Author Organization [facility] Address [address] [place] [address] Care Team Providers Name Role Phone Annemarie Montiel M.D. Primary Care Provider [phone] Encounter Details Date Type Department Care Team Description 08/02/2017 Hospital Encounter [facility] Nahun Tejeda M.D. [address] [place], [place] [phone] (Wo rk) Social History [...] How often do you attend confucianist or nondenominational Never 07/04/2019 services? 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 [address] [place] [phone] (Wo rk) Scheduled Procedures Name Priority [...] (ABNORMAL) Urine Microscopic (08/02/2017 3:43 PM CDT) [facility] Systems Integration Method Time Signature HXUR WBC. 21-30 (A) [...] (ABNORMAL) Urinalysis, Routine (08/02/2017 3:43 PM CDT) [facility] Method Time Signature HXUr Color Yellow Yellow POWERCHART Clarity Cloudy (A) Clear POWERCHART Glucose Negative Negative POWERCHART HXBILIRUBIN Negative Negative POWERCHART Ketones, QL(U) Negative Negative POWERCHART Specific 1.021 1.001 - POWERCHART [place], POCT, 1.035 U Comment: Reference Range Specific [place]: 1.000-1.035 pH, POCT, Urine 5.0 POWERCHART Comment: [...] documented as of this encounter Care Teams Candlemaking Laborer Relationship Specialty Start Date End Date Annemarie Montiel M.D. PCP - General 04/19/17 [address] [place] [address] documented as of this encounter
--- OUTSIDE RECORDS SUMMARY | 2022-09-05 06:11 | XMS_ITS | Encounter Summary ---
:1985 Author Organization [facility] Address [address] [place] [address] Care Team Providers Name Role Phone Unavailable Primary Care Provider Unavailable Encounter Details Date Type Department Care Team Description 01/24/2017 Hospital Encounter [facility]X [facility] Ranjit Kim M.D. [address] [place], [place] [phone] (Wo rk) Social History [...] How often do you attend restorationist or islam Never 07/04/2019 services? 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 [address] [phone] (Wo rk) Scheduled Procedures Name Priority Associated Diagnoses Date/Time LIFT THIGH Excessive And Redundant Skin And Subcutaneous Tissue documented as of this encounter Visit Diagnoses Not on filedocumented in this encounter Additional Health Concerns Assessment Noted Time PHQ-9 Depression Total Score: 9 12/27/2016 10:29 AM LLOYD T documented as of this encounter
--- OUTSIDE RECORDS SUMMARY | 2022-09-05 06:11 | XMS_ITS | Encounter Summary ---
:1985 Author Organization [facility] Address [address] [place] [address] Care Team Providers Name Role Phone Annemarie Montiel M.D. Primary Care Provider [phone] Encounter Details Date Type Department Care Team Description 08/21/2017 Orders Only Department of Annemarie Song, Gestational Diabetes Medicine, [facility], in [place], [address] History Not [place], [place] [address] [address] [place], [place] [phone] (Wo rk) [address] [phone] Social History Tobacco Use Types Packs/Day Years [...] How often do you attend quaker or moravian Never 07/04/2019 services? 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 [address] [place], [place] [phone] (Wo rk) Scheduled Procedures Name Priority Associated Diagnoses Date/Time LIFT THIGH Excessive And Redundant Skin And Subcutaneous Tissue documented as of this encounter Visit Diagnoses Diagnosis Gestational Diabetes [facility] Personal H istory Not documented in this encounter Additional Health Concerns Assessment Noted Time PHQ-9 Depression Total Score: 13 08/21/2017 12:55 PM C DT documented as of this encounter Care Teams Buffing Wheel Presser Relationship Specialty Start Date End Date Annemarie Montiel M.D. PCP - General 04/19/[address] [place] [address] documented as of this encounter
--- OUTSIDE RECORDS SUMMARY | 2022-09-05 06:11 | XMS_ITS | Encounter Summary ---
:1985 Author Organization [facility] Address [address] [place] [address] Care Team Providers Name Role Phone Unavailable Primary Care Provider Unavailable Encounter Details Date Type Department Care Team Description 01/24/2017 Hospital Encounter [facility] Cassie Zacarias M.D. [address] [place] [phone] (Wo rk) Social History Tobacco Use Types [...] How often do you attend mandaeism or sabianist Never 07/04/2019 services? 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 This medication has been faxed to [facility] and will send a communication to [employer] to disregard the prescription to them. Modified [...] Complaint: Pt advised that she already contact [facility], and they are going to reroute her Phentermine to them from [facility] [employer]. _ Patient/Caller response to Education/Information given: ( [...] language for Healthcare discussion: _ Was an hourly sign language interpreter used for this call? _ Other ( --_ ) From: BRENT AGUILAR To: JACEY KUMARcinder pit worker [facility]; Sent: 02/12/2017 10:53:24 CDT Subject: [...] pharmacy A: R: Please call pt at [phone] Advice/Action: Source used: ( ) Verbalizes understanding [...] back cell phone number ( ) Source: [facility] [employer] Document Id: [id number] documented in this encounter Plan of Treatment Upcoming Encounters Date Type Specialty Care Team Description 10/19/2022 Procedure visit Neurology Marina Winter M.D., M.P.H. [address] [phone] (Wo rk) Scheduled Procedures [...] BIRADS Narrative 01/24/2017 2:48 PM CDT EXAM: [facility] [facility] Bilat Mammo w/ Manjeet o., [...] / Josh Elias M.D. - 04/23/2017 EXAM: [place] [facility] Bilat Mammo w/ Manjeet o., [...] CDT Addenda Addendum by Provider, Ella Moreno o n 01/24/2017 1:24 PM CDT RAD^^^OW MA Digital [...] BIRADS Alexandra Hare R.T.(R), R.T.(R)(M) IMG BI PROCEDRITA ES documented in this encounter Visit Diagnoses Not on filedocumented in this encounter Additional Health Concerns Assessment Noted Time PHQ-9 Depression Total Score: 9 12/27/2016 10:29 AM CS T documented as of this encounter
--- OUTSIDE RECORDS SUMMARY | 2022-09-05 06:11 | XMS_ITS | Encounter Summary ---
:1985 Author Organization [facility] Address [address] [place] [address] Care Team Providers Name Role Phone Unavailable Primary Care Provider Unavailable Encounter Details Date Type Department Care Team Description 02/07/2017 Hospital Encounter [facility]X [facility] Leonel Pandya P.ARodrigo Santacruz [address] [place] [address] (Wo rk) Social History Tobacco [...] How often do you attend scientologist or jewish Never 07/04/2019 services? 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 documented as of this encounter Last Filed [...] NICHOLAS CMA - 02/07/2017 9:40 CDT Source: [employer] Document Id: [id number]!16 documented in this encounter Miscellaneous Notes Miscellaneous - Shira Nicholas C.MSandra - 02/07/2017 9:43 AM CDT *General Message/Bp/Wt check for phentermine Document Contains Addenda Addendum by KAYLEN BENSON LPN on February 08, 2017 07:52:36 [facility] Addendum by MAILE ZARATE MD on February 07, 2017 19:45:00 CDT From: MAILE ZARATE MD To: [facility] 2W Nurse; Sent: 02/07/2017 19:45:00 CDT Subject: RE: *General Message/Bp/Wt check for phentermine Addendum by MAILE ZARATE MD on February 07, 2017 19:44:55 CDT Approved with modifications: Order:phentermine (phentermine 37.5 mg oral tablet) 1 tab(s) PO Daily Qty: 42 tab(s) Refills: 0 Substitutions Allowed Print - [id number] (from [id number]) in session 157 Signed by MAILE ZARATE MD 02/07/2017 19:44:44 Addendum by LISA CASTRO CMA on February 07, 2017 09:52:21 CDT From: LISA CASTRO CMA ([facility] 2W Nurse) To: MAILE ZARATE MD; Sent: 02/07/2017 09:52:21 CDT Subject: RE: *General Message/Bp/Wt check for phentermine phertermine is pending signature, please advise From: SHIRA NICHOLAS CMA ([facility]/Travel Nurse) To: [facility] 2W Nurse; Sent: 02/07/2017 09:43:34 CDT Subject: *General Message/Bp/Wt check for phentermine S Patient presents to [facility] for BP/WT check for refill on phentermine [...] or concerns. Thank You, [facility] Source: [facility] POWERCHART Document Id: [id number] Electronically signed by Conversion, [facility] Centernicky Squad Sergeant [id number] at 04/17/2017 7:29 AM CDT documented in this encounter Plan of Treatment Upcoming Encounters Date Type Specialty Care Team Description 10/19/2022 Procedure visit Neurology Marina Winter M.D., M.P.H. [address] [place] [phone] (Wo rk) Scheduled Procedures Name Priority Associated Diagnoses Date/Time LIFT THIGH Excessive And Redundant Skin And Subcutaneous Tissue documented as of this encounter Visit Diagnoses Not on filedocumented in this encounter Additional Health Concerns Assessment Noted Time PHQ-9 Depression Total Score: 9 12/27/2016 10:29 AM CS T documented as of this encounter
--- OUTSIDE RECORDS SUMMARY | 2022-09-05 06:11 | XMS_ITS | Encounter Summary ---
:1985 Author Organization [facility] Address [address] [place] [address] Care Team Providers Name Role Phone Unavailable Primary Care Provider Unavailable Encounter Details Date Type Department Care Team Description 01/11/2017 Hospital Encounter [facility]X [facility] Ranjit Lee M.D. [address] [place], [place] [phone] (Wo rk) Social History [...] How often do you attend quaker or nondenominational Never 07/04/2019 services? 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 documented as of this encounter Last Filed Vital Signs Vital Sign Reading Time Taken Comments Blood Pressure 110/74 01/11/2017 10:23 AM BOX SEALING MACHINE FEEDER Pulse - - Temperature - - Respiratory Rate - - Oxygen Saturation - - Inhaled Oxygen Concentration - - Weight 117 kg (257 lb 15 oz) 01/11/2017 10:23 AM BOX SEALING MACHINE FEEDER Height 164 cm (5' 4.57) 01/11/2017 10:01 AM BOX SEALING MACHINE FEEDER Body Mass Index 43.5 01/11/2017 10:01 AM BOX SEALING MACHINE FEEDER documented in this encounter Medications at Time of Discharge Medication Sig Dispensed Refills Start Date End Date venlafaxine XR (EFFEXOR Take 1 capsule by 0 12/2703/27/2018 XR) 75 mg 24 hr capsule mouth daily. documented as of this encounter H&P Notes Kristi Melissa M.D. - 01/11/2017 10:01 AM CST [id number] REVISION HISTORY January 17, 2017 at 7:31 [...] she parked in the parking lot at [employer] or what she is going to say [...] procedure list updated in the EMR today. SOA ARCHITECT HISTORY: Para 4-0-1-4 female status post 4 [...] to her , Samir and is a dlpy-ub-vluv mom. She denies alcohol, tobacco or drug [...] MELISSA MD On: 01/20/2017 04:00 PM Source: [facility] MHSDOLBEYNONRADSYS Document Id: [id number] documented in this encounter Miscellaneous Notes Miscellaneous - Kristi Melissa M.D. - 01/15/2017 7:22 PM CDT Ambulatory Discharge Medication List [address] [id number] Visit Information Name: NANCY PHILLIPS [facility] Number: [id number] Current Date: 01/15/2017 19:22:53 Attending [...] MD Signed On:15-JAN-2017 19:22:52 Additional Information: Source: [facility] POWERCHART Document Id: [id number] Miscellaneous - Kristi Melissa M.D. - 01/15/2017 7:22 PM CDT Ambulatory Patient Summary [facility] [address] [place] [id number] Visit Information Name: NANCY PHILLIPS [facility] Number: [id number] Current Date: 01/15/2017 19:22:54 Physicians [...] Appointments Date Time Location Provider 01/24/2017 13:30 [facility] Mammo [facility] [place] Room 2 01/24/2017 15:00 [facility] Ultrasound [facility] Room 1 02/07/2017 09:30 [facility] 03/27/2017 11:30 [facility] FamilyPrac Dinesh RED, Nicki Zuniga [...] if you dont have one. Go to [email or web address] and click on Create Your Account. Then, follow the directions to complete the online form. Youll be asked for your [facility] number which you can find at the top of this document. Your Goals/Additional instructions: Source: [facility] [employer] Document Id: [id number] Miscellaneous - Martha Lomeli L.P.N. - 01/11/2017 10:23 AM CST Adult Loom Changeover Operator Intake/History Adult Loom Changeover Operator Intake/History Entered On: 01/11/2017 10:25 BOX SEALING MACHINE FEEDER Performed On: 01/11/2017 10:23 BOX SEALING MACHINE FEEDER by MARTHA LOMELI LPN Intake Chief Complaint : pp c/s 12/01 Systolic Blood Pressure : 110 mmHg Diastolic Blood Pressure : 74 mmHg NIBP Mean : 86 mmHg Blood Pressure Cuff Size : Regular Actual Weight : 117 kg(Converted to: 257 lb 15 oz) Dosing Weight Clinic : 117 kg MARTHA LOMELI LPN - 01/11/2017 10:23 BOX SEALING MACHINE FEEDER General Info Information Given By : Patient Languages : Thai Is Patient Female and 13-50 no hysterectomy : MARTHA Wilson LPN - 01/11/2017 10:23 BOX SEALING MACHINE FEEDER Subjective Pain Symptoms : MARTHA Wilson LPN - 01/11/2017 10:23 BOX SEALING MACHINE FEEDER Dependent Habits Exposure to Tobacco Smoke : Other: never Smoking Status : Never smoker Tobacco 2A : No Tobacco Use/Currently Using : No Tobacco Use/Last 30 Days : No Tobacco Use/Last 12 months : MARTHA Wilson LPN - 01/11/2017 10:23 BOX SEALING MACHINE FEEDER Caffeine Use Grid Caffeine Use : Current Type : Soft drinks Frequency : Daily Amount : regular 1-2 cans daily MARTHA LOMELI LPN - 01/11/2017 10:23 BOX SEALING MACHINE FEEDER [facility] Document Id: [id number] BOX SEALING MACHINE FEEDER!28 SEALING MACHINE FEEDER documented in this encounter Plan of Treatment Upcoming Encounters Date Type Specialty Care Team Description 10/19/2022 Procedure visit Neurology Marina Winter M.D., M.P.H. [address] [place], [place] [phone] (Wo rk) Scheduled Procedures Name Priority Associated Diagnoses Date/Time LIFT THIGH Excessive And Redundant Skin And Subcutaneous Tissue documented as of this encounter Procedures Procedure Name Priority Date/Time Associated Diagnosis Comme nts VAGINITIS BATTERY, Routine 01/11/2017 1:04 PM Res ults for this DNA (GENITAL) BOX SEALING MACHINE FEEDER procedure are in the results section. documented in this encounter Results VAGINITIS BATTERY, DNA (GENITAL) (01/11/2017 1:04 PM BOX SEALING MACHINE FEEDER) Component Value Ref Test Analysis Performed At [facility] Range Method Time Signature HXVaginitis POWERCHART Battery, DNA (Genital) HXFinal Trichomonas POWERCHART vaginalis DNA negative HXFinal Gardnerella POWERCHART vaginalis DNA negative HXFinal Heidi species POWERCHART DNA negative HXFinal Reference: POWERCHART Negative Specimen (Source) Anatomical Collection Method Collection Time Re ceived Time Location / / Volume Laterality Vagina 01/11/2017 1:04 PM BOX SEALING MACHINE FEEDER Kristi Melissa M.D. LAB HISTORICAL ORDERS Performing Organization Address City/State/ZIP Code Phon e Number POWERCHART documented in this encounter Visit Diagnoses Not on filedocumented in this encounter Additional Health Concerns Assessment Noted Time PHQ-9 Depression Total Score: 9 12/27/2016 10:29 AM CS T documented as of this encounter
--- OUTSIDE RECORDS SUMMARY | 2022-09-05 06:11 | XMS_ITS | Encounter Summary ---
:1985 Author Organization [facility] Address [address] [place] [address] Care Team Providers Name Role Phone Unavailable Primary Care Provider Unavailable Encounter Details Date Type Department Care Team Description 12/27/2016 Hospital Encounter HX [facility] Meche Montiel M.D. [address] [place] [phone] (Wo rk) Social History Tobacco Use Types [...] How often do you attend scientology or congregational Never 07/04/2019 services? 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 documented as of this encounter Last Filed Vital Signs Vital Sign Reading Time Taken Comments Blood Pressure 120/82 12/27/2016 9:37 AM HOSPITAL PRODUCT SPECIALIST Pulse 78 12/27/2016 9:37 AM HOSPITAL PRODUCT SPECIALIST Temperature - - Respiratory Rate 16 12/27/2016 9:37 AM HOSPITAL PRODUCT SPECIALIST Oxygen Saturation - - Inhaled Oxygen Concentration - - Weight 119 kg (261 lb 14.5 oz) 12/27/2016 9:37 AM HOSPITAL PRODUCT SPECIALIST Height 164 cm (5' 4.57) 12/27/2016 9:37 AM HOSPITAL PRODUCT SPECIALIST Body Mass Index 44.17 12/27/2016 9:37 AM HOSPITAL PRODUCT SPECIALIST documented in this encounter Medications at Time of Discharge Medication Sig Dispensed Refills Start Date End Date venlafaxine XR (EFFEXOR Take 1 capsule by 0 12/2703/27/2018 XR) 75 mg 24 hr capsule mouth daily. documented as of this encounter Progress Notes Annemarie Montiel M.D. - 12/27/2016 9:28 AM CST [id number] CHIEF COMPLAINT / REASON FOR VISIT Medication [...] behalf by Reggie Cohen, a trained medical recruiter. The creation of this record is basedon the scribe's personal observations and the provider's statements to them. This document has been c hecked and approved by the attending provider. Annemarie Montiel M.D./lesley Electronically Signed By: ANNEMARIE MONTIEL MD On: 12/30/2016 02:03 PM Source: [facility] MHSDOLBEYNONSANDEESYS Document Id: [id number] ITAL PRODUCT SPECIALIST documented in this encounter Miscellaneous Notes Miscellaneous - Lisa Andrade C.M.A. - 02/05/2017 3:15 PM CDT Med Management Document Contains Addenda Addendum by OLIVA WRIGHT CMA on February 06, 2017 10:40:22 CDT Patient stated that she has an appt with [facility] tomorrow. Addendum by BRENT AGUILAR on February 06, 2017 10:27:21 CDT Patient returning call to nurse, please call back [phone] Addendum by OLIVA WRIGHT CMA on February 06, 2017 09:44:48 CDT Left message to call back. Addendum by ANNEMARIE MONTIEL MD on February 05, 2017 19:16:28 CDT From: ANNEMARIE MONTIEL MD To: [facility] 2W Nurse; Sent: 02/05/2017 19:16:28 CDT Subject: RE: Med Management Needs weight and BP check via [facility]. From: LISA ANDRADE CMA ([facility] 2W Nurse) To: ANNEMARIE MONTIEL MD; Sent: 02/05/2017 15:15:28 CDT Subject: Med Management On hold pending signature Order:phentermine (phentermine 37.5 mg oral tablet) 1 tab(s) PO Daily Qty: 42 tab(s) Refills: 0 Substitutions Allowed Print - [id number] Caller is: ( ) Patient ( ) Mother ( ) Father ( ) Spouse ( ) Daughter ( ) Son ( ) Pharmacy ( ) Other: Provider: jeyson Pharmacy: [facility] [place] Name of Medications Needing Refill: Phentermine 37.5 mg Last Refill Date: 12/27/2016 Additional Information: Last / Future Appointment: last apt. 12/27/2016 future apt. 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 - 12/27/2016 10:29 AM CST PHQ-9 PHQ-9 Entered On: 12/27/2016 10:29 HOSPITAL PRODUCT SPECIALIST Performed On: 12/27/2016 10:29 HOSPITAL PRODUCT SPECIALIST by OLIVA WRIGHT [facility] PHQ-9 Little interest or pleasure in doing [...] with others : Somewhat difficult OLIVA WRIGHT [facility] - 12/27/2016 10:29 HOSPITAL PRODUCT SPECIALIST [facility] Squ[facility] Document Id: [id number] HOSPITAL PRODUCT SPECIALIST!13 ITAL PRODUCT SPECIALIST Bunny - Annemarie oMntiel M.D. - 12/27/2016 10:22 AM CST Ambulatory Patient Summary [address] [id number] Visit Information Name: NANCY PHILLIPS [facility] Number: [id number] Current Date: 12/27/2016 10:22:24 [...] cap, Oral, once a day Routed to [facility] [address] [place] [...] Date Time Location Provider 01/11/2017 13:15 [facility] GIFT SHOP MANAGER Cassie Booth MD Attention: Contact your local [...] Youll be asked for your [facility] number which you can find at the top of this document. Your Goals/Additional instructions: Source: [facility] POWERCHART Document Id: [id number] ITAL PRODUCT SPECIALIST Miscellaneous - Annemarie Montiel M.D. - 12/27/2016 10:22 AM CST Ambulatory Discharge Medication List [address] [id number] Visit Information Name: NANCY PHILLIPS [facility] Number: [id number] Current Date: 12/27/2016 10:22:23 [...] cap, Oral, once a day Routed to [facility] [address] [place] [address] Stop Taking the Following Medications: ibuprofen (ibuprofen [...] MD Signed On:27-DEC-2016 10:22:15 Additional Information: Source: [facility] POWERCHART Document Id: [id number] ITAL PRODUCT SPECIALIST Miscellaneous - Oliva Wright, C.M.ARodrigo - 12/27/2016 9:37 AM CST Adult Insurance Agency Sales Manager Intake/History Adult Insurance Agency Sales Manager Intake/History Entered On: 12/27/2016 9:39 HOSPITAL PRODUCT SPECIALIST Performed On: 12/27/2016 9:37 HOSPITAL PRODUCT SPECIALIST by OLIVA WRIGHT [facility] Intake Chief Complaint : med check Peripheral [...] Mass Index : 44.17 kg/m2 OLIVA WRIGHT [facility] - 12/27/2016 9:37 HOSPITAL PRODUCT SPECIALIST General Info Information Given By : Patient Languages : Ethiopian Is Patient Female and 13-50 no hysterectomy : No OLIVA WRIGHT [facility] - 12/27/2016 9:37 HOSPITAL PRODUCT SPECIALIST Subjective Pain Symptoms : No OLIVA WRIGHT CMA - 12/27/2016 9:37 HOSPITAL PRODUCT SPECIALIST Dependent Habits Exposure to Tobacco Smoke : Other: never Smoking Status : Never smoker Tobacco 2A : No Tobacco Use/Currently Using : No Tobacco Use/Last 30 Days : No Tobacco Use/Last 12 months : No Alcohol Use : No OLIVA WRIGHT [facility] 12/27/2016 9:37 HOSPITAL PRODUCT SPECIALIST Caffeine Use Grid Caffeine Use : Current Type : Soft drinks Frequency : Daily Amount : regular 1-2 cans daily OLIVA WRIGHT [facility] 12/27/2016 9:37 HOSPITAL PRODUCT SPECIALIST Source: [facility] [employer] Document Id: [id number] HOSPITAL PRODUCT SPECIALIST!37 ITAL PRODUCT SPECIALIST Miscellaneous - Oliva Wright C.M.ARodrigo - 12/27/2016 9:34 AM CST Health Assessment Health Assessment Entered On: 12/27/2016 9:35 HOSPITAL PRODUCT SPECIALIST Performed On: 12/27/2016 9:34 HOSPITAL PRODUCT SPECIALIST by OLIVA WRIGHT [facility] Health Assessment Complete Health Assessment Complete or Modified : Annual Health Assessment Annual Health Assessment Completed : Yes OLIVA WRIGHT [facility] 12/27/2016 9:34 HOSPITAL PRODUCT SPECIALIST Nutrition Nutrition Risk Factors by History Adult : None OLIVA WRIGHT [facility] 12/27/2016 9:34 HOSPITAL PRODUCT SPECIALIST Functional Current Daily Living Assistance : OLIVA Lopez [facility] 12/27/2016 9:34 HOSPITAL PRODUCT SPECIALIST Dependent Habits Exposure to Tobacco Smoke : Other: never Smoking Status : Never smoker Tobacco 2A : No Tobacco Use/Currently Using : No Tobacco Use/Last 30 Days : No Tobacco Use/Last 12 months : No Alcohol Use : No OLIVA WRIGHT [facility] 12/27/2016 9:34 HOSPITAL PRODUCT SPECIALIST Caffeine Use Grid Caffeine Use : Current Type : Soft drinks Frequency : Daily Amount : regular 1-2 cans daily OLIVA WRIGHT [facility] 12/27/2016 9:34 HOSPITAL PRODUCT SPECIALIST Psychosocial Domestic Abuse Concerns : None Behavioral Health Screen/Safety Assmt : No Rastafarian Preference : OLIVA Taylor [facility] 12/27/2016 9:34 HOSPITAL PRODUCT SPECIALIST Advance Directive Advanced Directives : No Advance Directive Additional Information : No OLIVA WRIGHT [facility] 12/27/2016 9:34 HOSPITAL PRODUCT SPECIALIST Educ Needs Learning Style Preference Adult Grid Patient : Verbal explanation, Printed materials Family : None OLIVA WRIGHT IRON PILER - 12/27/2016 9:34 HOSPITAL PRODUCT SPECIALIST Source: [facility] POWERCHART Document Id: [id number] HOSPITAL PRODUCT SPECIALIST!33 ITAL PRODUCT SPECIALIST documented in this encounter Plan of Treatment Upcoming Encounters Date Type Specialty Care Team Description 10/19/2022 Procedure visit Neurology Marina Winter M.D., M.P.H. [address] [place], [place] [phone] (Wo rk) Scheduled Procedures Name Priority Associated Diagnoses Date/Time LIFT THIGH Excessive And Redundant Skin And Subcutaneous Tissue documented as of this encounter Visit Diagnoses Not on filedocumented in this encounter Additional Health Concerns Assessment Noted Time PHQ-9 Depression Total Score: 9 12/27/2016 10:29 AM CS T documented as of this encounter
--- OUTSIDE RECORDS SUMMARY | 2022-09-05 06:11 | XMS_ITS | Encounter Summary ---
:1985 Author Organization [facility] Address [address] [place] [address] Care Team Providers Name Role Phone Unavailable Primary Care Provider Unavailable Encounter Details Date Type Department Care Team Description 11/20/2016 Hospital Encounter HX NO MAPPING Eva Booth M.D. [address] [place], [place] [phone] (Wo rk) Social History [...] How often do you attend synagogue or anabaptism Never 07/04/2019 services? 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 [address] [phone] (Wo rk) Scheduled Procedures Name Priority Associated Diagnoses Date/Time LIFT THIGH Excessive And Redundant Skin And Subcutaneous Tissue documented as of this encounter Visit Diagnoses Not on filedocumented in this encounter Additional Health Concerns Assessment Noted Time PHQ-9 Depression Total Score: 13 06/14/2015 3:56 PM CD T documented as of this encounter
--- OUTSIDE RECORDS SUMMARY | 2022-09-05 06:11 | XMS_ITS | Encounter Summary ---
:1985 Author Organization [facility] Address [address] [place] [address] Care Team Providers Name Role Phone Annemarie Montiel M.D. Primary Care Provider [phone] Encounter Details Date Type Department Care Team Description 07/17/2017 Hospital Encounter HX [facility] Eva Shields M.D. Social History Tobacco Use [...] How often do you attend sikh or orthodoxy Never 07/04/2019 services? 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 Tejeda Thanks, I prionted the RX for these refills ; she can p[ick them up at her appointment time. Addendum by LIA CUEVAS LPN on August 08, 2017 13:13:15 CDT From: ILA CUEVAS LPN ( PROBATION SUPERVISOR Nurse) To: SHAR TEJEDA MD; Sent: 08/08/2017 [...] office today. From: BRENT AGUILAR To: OW PROBATION SUPERVISOR Nurse; Sent: 08/08/2017 11:39:07 CDT Subject: *Phone [...] Ambien A: R: Please call pt at [phone] Advice/Action: Source used: ( ) Verbalizes understanding [...] phone number ( ) [facility] Document Id: [id number] documented in this encounter Plan of Treatment Upcoming Encounters Date Type Specialty Care Team Description 10/19/2022 Procedure visit Neurology Marina Winter M.D., M.P.H. [address] [phone] (Wo rk) Scheduled Procedures Name Priority Associated Diagnoses Date/Time LIFT THIGH Excessive And Redundant Skin And Subcutaneous Tissue documented as of this encounter Visit Diagnoses Not on filedocumented in this encounter Additional Health Concerns Assessment Noted Time PHQ-9 Depression Total Score: 9 12/27/2016 10:29 AM CS T documented as of this encounter Care Teams Shuttle Filler Relationship Specialty Start Date End Date Annemarie Montiel M.D. PCP - General 04/19/[address] [phone] documented as of this encounter
--- OUTSIDE RECORDS SUMMARY | 2022-09-05 06:11 | XMS_ITS | Encounter Summary ---
:1985 Author Organization [facility] Address [address] [place] [address] Care Team Providers Name Role Phone Annemarie Montiel M.D. Primary Care Provider [phone] Encounter Details Date Type Department Care Team Description 05/02/2017 Hospital Encounter HX [facility] Leonel Hendricks P.ARodrigo Santacruz [address] [place] [address] (Wo rk) Social History Tobacco [...] How often do you attend latter-day or confucianism Never 07/04/2019 services? Do you [...] at Date Recorded Female 10/16/2018 10:53 AM ALLIANCES CONSULTANT documented as of this encounter Last [...] Dinesh. Patient is requesting Phentermine refills to [facility] pharmacy. Patient inquired about Naproxen Rx and [...] LÓPEZ RN - 05/02/2017 13:03 CDT Source: [facility] [employer] Document Id: [id number] CDT!17 documented in this encounter Miscellaneous Notes Miscellaneous - Lucia López R.N. - 05/02/2017 1:14 PM CDT BP/wt; Rx request Document Contains Addenda Addendum by STEVE SAMSON LPN on May 02, 2017 14:51:59 CDT faxed to [facility] Addendum by ANNEMARIE MONTIEL MD on May 02, 2017 13:27:40 CDT From: ANNEMARIE MONTIEL MD To: [facility] 2W Nurse; Sent: 05/02/2017 13:27:40 CDT Subject: RE: BP/wt; Rx request Addendum by ANNEMARIE MONTIEL MD on May 02, 2017 13:24:55 CDT Submitted: Order:phentermine (phentermine 37.5 mg oral tablet) 1 tab(s) PO Daily [facility] Qty: 42 tab(s) Refills: 0 Substitutions Allowed Print - [id number] Signed by ANNEMARIE MONTIEL MD 05/02/2017 13:24:40 From: LUCIA LÓPEZ RN ([facility]/Travel Nurse) To: ANNEMARIE MONTIEL MD; Sent: 05/02/2017 13:14:51 CDT Subject: BP/wt; Rx request Patient in for BP/wt check. Please review attached document. Patient requesting phentermine refill sent to [facility] pharmacy. Source[facility] Document Id: [id number] documented in this encounter Plan of Treatment Upcoming Encounters Date Type Specialty Care Team Description 10/19/2022 Procedure visit Neurology Marina Winter M.D., M.P.H. [address] [place], [place] [phone] (Wo rk) Scheduled Procedures Name Priority Associated Diagnoses Date/Time LIFT THIGH Excessive And Redundant Skin And Subcutaneous Tissue documented as of this encounter Visit Diagnoses Not on filedocumented in this encounter Additional Health Concerns Assessment Noted Time PHQ-9 Depression Total Score: 9 12/27/2016 10:29 AM CS T documented as of this encounter Care Teams Senior Loan Officer Relationship Specialty Start Date End Date Annemarie Montiel M.D. PCP - General [address] [place] [address] documented as of this encounter
--- OUTSIDE RECORDS SUMMARY | 2022-09-05 06:11 | XMS_ITS | Encounter Summary ---
:1985 Author Organization [facility] Address [address] [place] [address] Care Team Providers Name Role Phone Annemarie Montiel M.D. Primary Care Provider [phone] Encounter Details Date Type Department Care Team Description 07/27/2017 Hospital Encounter HX NO MAPPING Nahun Tejeda M.D. [address] [place], [place] [phone] (Wo rk) Social History [...] How often do you attend restorationist or cheondoism Never 07/04/2019 services? 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 [address] [phone] (Wo rk) Scheduled [...] dder wall. 3. Pancolonic fecal retention. Chhaya Hastings R.TRodrigo(R)(CT), R.TRodrigo(R) IMG CT PROCEDURES Pathology Surgical Pathology [...] documented as of this encounter Care Teams Chainstitch Felled Seam Operator Relationship Specialty Start Date End Date Annemarie Montiel M.D. PCP - General 04/19/17 [address] [place] [address] documented as of this encounter
--- OUTSIDE RECORDS SUMMARY | 2022-09-05 06:11 | XMS_ITS | Encounter Summary ---
:1985 Author Organization [facility] Address [address] [place] [address] Care Team Providers Name Role Phone Annemarie Montiel M.D. Primary Care Provider [phone] Encounter Details Date Type Department Care Team Description 07/03/2017 Hospital Encounter HX [facility] Promise Rouse M.D. [address] [place], [place] [phone] (Wo rk) Social [...] How often do you attend orthodoxy or advent Never 07/04/2019 services? Do you [...] at Date Recorded Female 10/16/2018 10:53 AM ONCOLOGY ADMIN documented as of this encounter Last Filed [...] Tejeda M.D. - 07/03/2017 10:07 AM CDT [id number] CHIEF COMPLAINT/REASON FOR VISIT Endometriosis. HISTORY OF [...] TEJEDA MD On: 07/05/2017 03:15 PM Source: [facility] MHSDOLBEYNONRADSYS Document Id: [id number] documented in this encounter Miscellaneous Notes Miscellaneous - Shar Tejeda M.D. - 07/03/2017 12:02 PM CDT Ambulatory Patient Summary [address] [id number] Visit Information Name: NANCY PHILLIPS [facility] Number: [id number] Current Date: 07/03/2017 12:02:54 Physicians [...] Appointments Date Time Location Provider 07/17/2017 11:15 [facility] FamilyPrac Oskar RED, Tammy Noriega 08/09/2017 13:15 [facility] GAS TURBINE MECHANIC Ayanna Xie NP 08/21/2017 10:30 OW FamilyPrac Nicki Montiel MD 09/06/2017 13:15 [facility] GAS TURBINE MECHANIC Ileana RED, Shar Regalado Attention: Contact your [...] online form. Youll be asked for your [facility] number which you can find at the top of this document. Your Goals/Additional instructions: Source: [facility] POWERCHART Document Id: [id number] Miscellaneous - Shar Tejeda M.D. - 07/03/2017 12:02 PM CDT Ambulatory Discharge Medication List [facility] [address] [place], [place] [phone] Visit Information Name: NANCY PHILLIPS [facility] Number: [id number] Current Date: 07/03/2017 12:02:53 Attending [...] MD Signed On:03-JUL-2017 12:02:46 Additional Information: Source: [facility] POWERCHART Document Id: [id number] Miscellaneous - Dwayne Arroyo - 07/03/2017 10:22 AM CDT Adult School Health Aide Intake/History Adult School Health Aide Intake/History Entered On: 07/03/2017 10:30 CDT Performed [...] Preferred Communication Mode : Verbal Languages : Georgian Is Patient Female and 13-50 no hysterectomy [...] DWAYNE ARROYO - 07/03/2017 10:22 CDT Source: [employer] Document Id: [id number] CDT!36 documented in this encounter Plan of Treatment Upcoming Encounters Date Type Specialty Care Team Description 10/19/2022 Procedure visit Neurology Marina Winter M.D., M.P.H. [address] [phone] (Wo rk) Scheduled Procedures Name Priority Associated Diagnoses Date/Time LIFT THIGH Excessive And Redundant Skin And Subcutaneous Tissue documented as of this encounter Visit Diagnoses Not on filedocumented in this encounter Additional Health Concerns Assessment Noted Time PHQ-9 Depression Total Score: 9 12/27/2016 10:29 AM CS T documented as of this encounter Care Teams Engagement Quality Consultant Relationship Specialty Start Date End Date Annemarie Montiel M.D. PCP - General 04/19/17 [address] [place] [address] documented as of this encounter
--- OUTSIDE RECORDS SUMMARY | 2022-09-05 06:11 | XMS_ITS | Encounter Summary ---
:1985 Author Organization [facility] Address [address] [place] [address] Care Team Providers Name Role Phone Unavailable Primary Care Provider Unavailable Encounter Details Date Type Department Care Team Description 12/07/2016 Hospital Encounter [facility]X [facility] Ranjit Lee M.D. [address] [place], [place] [phone] (Wo rk) Social History [...] at Date Recorded Female 10/16/2018 10:53 AM TALENT ADVISOR documented as of this encounter Last Filed Vital Signs Vital Sign Reading Time Taken Comments Blood Pressure 128/78 12/07/2016 3:48 PM TALENT ADVISOR Pulse - - Temperature - - Respiratory Rate - - Oxygen Saturation - - Inhaled Oxygen Concentration - - Weight 122 kg (268 lb 11.9 oz) 12/07/2016 3:48 PM TALENT ADVISOR Height 164 cm (5' 4.57) 12/07/2016 3:48 PM TALENT ADVISOR Body Mass Index 45.32 12/07/2016 3:48 PM TALENT ADVISOR documented in this encounter Progress Notes Kristi Melissa M.D. - 12/07/2016 3:26 PM CST [id number] CHIEF COMPLAINT/REASON FOR VISIT Postop check. HISTORY [...] MELISSA MD On: 12/09/2016 02:54 PM Source: [facility] MHSDOLBEYNONRADSYS Document Id: [id number] NT ADVISOR documented in this encounter Miscellaneous Notes Miscellaneous - Kristi Melissa M.D. - 12/07/2016 5:53 PM CST Ambulatory Discharge Medication List [address] [id number] [facility]: [facility] New Routed to [facility] [address] [place] [address] venlafaxine (Effexor XR 150 mg oral capsule, extended release) 1 cap, Oral, once a day venlafaxine (Effexor XR 75 mg oral capsule, extended release) 1 cap, Oral, once a day New Routed to [facility] [address] [place] [address] Stop [...] MD Signed On:07-DEC-2016 17:53:43 Additional Information: Source: [facility] POWERCHART Document Id: [id number] NT ADVISOR Miscellaneous - Kristi Melissa M.D. - 12/07/2016 5:53 PM CST Ambulatory Patient Summary [address] [place], [place] [id number] Visit Information [facility]: [facility] up to 2 weeks New Routed to [facility] [address] [place] [address] venlafaxine (Effexor XR 150 mg oral capsule, extended release) 1 cap, Oral, once a day venlafaxine (Effexor XR 75 mg oral capsule, extended release) 1 cap, Oral, once a day New Routed to [facility] [address] [place] [address] Stop [...] Date Time Location Provider 12/15/2016 14:00 [facility] DIRECTOR OF ARCHITECTURE Kristi Melissa MD 12/27/2016 09:45 [facility] Nicki Montiel MD 01/11/2017 13:15 [facility] DIRECTOR OF ARCHITECTURE Kristi Melissa MD Attention: Contact your local [...] if you dont have one. Go to [email or web address] and click on Create Your Account. Then, follow the directions to complete the online form. Youll be asked for your [facility] number which you can find at the top of this document. Your Goals/Additional instructions: Source: [facility] POWERCHART Document Id: [id number] NT ADVISOR Miscellaneous - Alexandra العلي, L.P.N. - 12/07/2016 3:48 PM CST Adult Clerical Administrator Intake/History Adult Clerical Administrator Intake/History Entered On: 12/07/2016 15:49 TALENT ADVISOR Performed On: 12/07/2016 15:48 TALENT ADVISOR by ALEXANDRA العلي SUPERANNUATION CLERK Intake Chief Complaint : Post op Systolic [...] kg/m2 ALEXANDRA العلي LPN - 12/07/2016 15:48 TALENT ADVISOR General Info Languages : Maori Is Patient Female and 13-50 no hysterectomy : Yes Status : Patient denies Are you ? : No ALEXANDRA العلي LPN - 12/07/2016 15:48 TALENT ADVISOR Subjective Pain Symptoms : No ALEXANDRA العلي LPN - 12/07/2016 15:48 TALENT ADVISOR Dependent Habits Exposure to Tobacco Smoke : Other: never Smoking Status : Never smoker Tobacco 2A : No Tobacco Use/Currently Using : No Tobacco Use/Last 30 Days : No Tobacco Use/Last 12 months : No ALEXANDRA العلي LPN - 12/07/2016 15:48 TALENT ADVISOR Caffeine Use Grid Caffeine Use : Current Type : Soft drinks Frequency : Daily Amount : regular 1-2 cans daily ALEXANDRA العلي LPN - 12/07/2016 15:48 TALENT ADVISOR Source: [facility] POWERCHART Document Id: [id number] TALENT ADVISOR!34 NT ADVISOR documented in this encounter Plan of Treatment Upcoming Encounters Date Type Specialty Care Team Description 10/19/2022 Procedure visit Neurology Marina Winter M.D., M.P.H. [address] [phone] (Wo rk) Scheduled Procedures Name Priority Associated Diagnoses Date/Time LIFT THIGH Excessive And Redundant Skin And Subcutaneous Tissue documented as of this encounter Visit Diagnoses Not on filedocumented in this encounter Additional Health Concerns Assessment Noted Time PHQ-9 Depression Total Score: 13 06/14/2015 3:56 PM CD T documented as of this encounter
--- OUTSIDE RECORDS SUMMARY | 2022-09-05 06:11 | XMS_ITS | Encounter Summary ---
:[address] [facility] Address [address] [place] [address] Care Team Providers Name Role Phone Unavailable Primary Care Provider Unavailable Encounter Details Date Type Department Care Team Description 02/15/2017 Hospital Encounter HX [facility] Meche Montiel M.D. [address] [place] [phone] (Wo rk) Social History Tobacco Use Types [...] How often do you attend adventist or worship Never 07/04/2019 services? 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 - 02/15/2017 12:00 AM CDT [id number] Nancy presented for an appointment today with [...] behalf by Reggie Cohen, a trained medical tech. The creation of this record is basedon the scribe's personal observations and the provider's statements to them. This document has been c hecked and approved by the attending provider. Annemarie Montiel M.D./lesley Electronically Signed By: ANNEMARIE MONTIEL MD On: 03/04/2017 02:24 PM Source: [facility] MHSDOLBEYNONRADSYS Document Id: [id number] documented in this encounter Miscellaneous Notes Miscellaneous - Annemarie Montiel M.D. - 02/15/2017 1:51 PM CDT Ambulatory Patient Summary [address] [id number] Visit Information Name: NANCY PHILLIPS [facility] Number: [id number] Current Date: 02/15/2017 13:51:17 Physicians Attending Provider: NANEMARIE MONTIEL MD Primary Care Provider: ANNEMARIE MONTIEL [...] Appointments Date Time Location Provider 03/27/2017 11:30 [facility] Nicki Montiel MD Attention: Contact your [...] form. Youll be asked for your [facility] number which you can find at the top of this document. Your Goals/Additional instructions: Source: [facility] POWERCHART Document Id: [id number] Miscellaneous - Annemarie Montiel M.D. - 02/15/2017 1:51 PM CDT Ambulatory Discharge Medication List [address] [id number] Visit Information Name: NANCY PHILLIPS [facility] Number: [id number] Current Date: 02/15/2017 13:51:17 Attending [...] MD Signed On:15-FEB-2017 13:51:15 Additional Information: Source: [facility] POWERCHART Document Id: [id number] Miscellaneous - Lilibeth Benson, L.P.N. - 02/15/2017 12:24 PM CDT Adult Mechanic Assistant Intake/History Adult Mechanic Assistant Intake/History Entered On: 02/15/2017 12:28 CDT Performed [...] Preferred Communication Mode : Verbal Languages : Iraqi Is Patient Female and 13-50 no hysterectomy : No LILIBETH BENSON LPN - 02/15/2017 12:24 CDT Subjective Pain Symptoms : No LILIBETH BENSON LPN 02/15/2017 12:24 CDT Dependent Habits Exposure to Tobacco Smoke : Other: never Smoking Status : Never smoker Tobacco 2A : No Tobacco Use/Currently Using : No Tobacco Use/Last 30 Days : No Tobacco Use/Last 12 months : LILIBETH Arredondo LPN 02/15/2017 12:24 CDT Caffeine Use Grid Caffeine Use : Current Type : Soft drinks Frequency : Daily Amount : regular 1-2 cans daily LILIBETH BENSON LPN 02/15/2017 12:24 CDT Source: [employer] Document Id: [id number] CDT!35 documented in this encounter Plan of Treatment Upcoming Encounters Date Type Specialty Care Team Description 10/19/2022 Procedure visit Neurology Marina Winter M.D., M.P.H. [address] [phone] (Wo rk) Scheduled Procedures Name Priority Associated Diagnoses Date/Time LIFT THIGH Excessive And Redundant Skin And Subcutaneous Tissue documented as of this encounter Visit Diagnoses Not on filedocumented in this encounter Additional Health Concerns Assessment Noted Time PHQ-9 Depression Total Score: 9 12/27/2016 10:29 AM CS T documented as of this encounter
--- OUTSIDE RECORDS SUMMARY | 2022-09-05 06:11 | XMS_ITS | Encounter Summary ---
:1985 Author Organization [facility] Address [address] [place] [address] Care Team Providers Name Role Phone Annemarie Montiel M.D. Primary Care Provider [phone] Encounter Details Date Type Department Care Team Description 07/25/2017 Hospital Encounter HX NO MAPPING Nahun Tejeda M.D. [address] [place], [place] [phone] (Wo rk) Social History [...] How often do you attend yarsani or judaism Never 07/04/2019 services? 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 [address] [place], [place] [phone] (Wo rk) Scheduled Procedures Name Priority Associated Diagnoses Date/Time LIFT THIGH Excessive And Redundant Skin And Subcutaneous Tissue documented as of this encounter Visit Diagnoses Not on filedocumented in this encounter Additional Health Concerns Assessment Noted Time PHQ-9 Depression Total Score: 9 12/27/2016 10:29 AM CS T documented as of this encounter Care Teams Circulation Worker Relationship Specialty Start Date End Date Annemarie Montiel M.D. PCP - General 04/19/17 [address], [place] [phone] documented as of this encounter
--- OUTSIDE RECORDS SUMMARY | 2022-09-05 06:11 | XMS_ITS | Encounter Summary ---
:1985 Author Organization [facility] Address [address] [place] [address] Care Team Providers Name Role Phone Unavailable Primary Care Provider Unavailable Encounter Details Date Type Department Care Team Description 12/01/2016 Hospital Encounter HX [facility] Cassie Bruno M.D. [address] [place] [phone] Social History Tobacco Use Types [...] How often do you attend zoroastrian or zoroastrianism Never 07/04/2019 services? 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 [address] [place] [phone] (Wo rk) Scheduled Procedures Name Priority Associated Diagnoses Date/Time LIFT THIGH Excessive And Redundant Skin And Subcutaneous Tissue documented as of this encounter Procedures Procedure Name Priority Date/Time Associated Diagnosis Comme nts SURGICAL PATHOLOGY Routine 12/01/2016 12:00 AM Re sults for this MILITARY TECHNICIAN procedure are i n the results section. SURGICAL PATHOLOGY Routine 12/01/2016 12:00 AM Re sults for this MILITARY TECHNICIAN procedure are i n the results section. documented in this encounter Results Pathology Surgical Pathology (12/01/2016 12:00 AM MILITARY TECHNICIAN) Specimen (Source) Anatomical Location Collection Method / Collectio n Time Received Time / Laterality Volume 12/01/2016 Narrative [facility] - 12/07/2016 5:17 PM MILITARY TECHNICIAN PATIENT IMAGES Choose the Image button to view related documents. Historical Provider LAB SURG PATH ORDERABLES Performing Organization Address City/State/ZIP Code Phon e Number [facility] Pathology Surgical Pathology (12/01/2016 12:00 AM MILITARY TECHNICIAN) Specimen (Source) Anatomical Location Collection Method / Collectio n Time Received Time / Laterality Volume 12/01/2016 Narrative [facility] - 12/07/2016 5:18 PM MILITARY TECHNICIAN PATIENT IMAGES Choose the Image button to [...]
--- OUTSIDE RECORDS SUMMARY | 2022-09-05 06:11 | XMS_ITS | Encounter Summary ---
:1985 Author Organization [facility] Address [address] [place] [address] Care Team Providers Name Role Phone Unavailable Primary Care Provider Unavailable Encounter Details Date Type Department Care Team Description 03/27/2017 Hospital Encounter [facility]X [facility] Meche Montiel M.D. [address] [place] [phone] (Wo rk) Social History Tobacco Use Types [...] How often do you attend temple or alevism Never 07/04/2019 services? 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 - 03/27/2017 11:19 AM CDT [id number] CHIEF COMPLAINT / REASON FOR VISIT Follow [...] behalf by Reggie Cohen, a trained medical center manager. The creation of this record is basedon the scribe's personal observations and the provider's statements to them. This document has been c hecked and approved by the attending provider. Annemarie Montiel M.D./lisa Daniels: 03/27/2017 08:17 AM Electronically Signed By: ANNEMARIE MONTIEL MD On: 04/08/2017 09:46 AM Source: [facility] MHSDOLBEYNTWYLARADSYS Document Id: [id number] documented in this encounter Miscellaneous Notes Miscellaneous - Nereyda Borges - 04/30/2017 10:24 AM CDT Med Management Document Contains Addenda Addendum by ANNEMARIE MONTIEL MD on April 30, 2017 12:53:13 CDT Approved with modifications: Order:naproxen (naproxen 250 mg oral tablet) 1 tab(s) PO 2xDay with food Qty: 30 tab(s) Refills: 4 Substitutions Allowed PRN pain Route To Pharmacy - [id number] Signed by ANNEMARIE MONTIEL MD 04/30/2017 12:53:08 From: NEREYDA BORGES COLORER ([facility] 2W Nurse) To: ANNEMARIE MONTIEL MD; Sent: 04/30/2017 10:24:35 CDT Subject: Med Management On hold pending signature Order:naproxen (naproxen 250 mg oral tablet) 1 tab(s) PO 2xDay with food Qty: 30 tab(s) Refills: 1 Substitutions Allowed PRN pain Route To Pharmacy - [facility] Caller is: ( ) [...] Call to Pharmacy ( ) Patient will order picker/assembler Script ( ) Mail Rx to Patient Source: [facility] POWERCHART Document Id: [id number] Electronically signed by Maria R [facility] Quenching Machine Operator [id number] at 05/10/2017 6:25 AM CDT Miscellaneous - Annemarie Montiel M.D. - 03/27/2017 12:36 PM CDT Ambulatory Patient Summary Nursery [facility] [address] [place] [id number] Visit Information Name: NANCY PHILLIPS [facility] Number: [id number] Current Date: 03/27/2017 12:36:15 Physicians [...] increase to twice daily New Routed to [facility] [address] [place] [address] venlafaxine (Effexor XR 75 mg oral capsule, [...] dont have one. Go to [email or web address] and click on Create Your Account. Then, follow the directions to complete the online form. Youll be asked for your [facility] number which you can find at the top of this document. Your Goals/Additional instructions: Source: [facility] POWERCHART Document Id: [id number] Miscellaneous - Annemarie Montiel M.D. - 03/27/2017 12:36 PM CDT Ambulatory Discharge Medication List [address] [id number] Visit Information Name: NANCY PHILLIPS [facility] Number: [id number] Current Date: 03/27/2017 12:36:14 Attending [...] increase to twice daily New Routed to [facility] [address] [place] [address] venlafaxine (Effexor XR 75 mg oral capsule, [...] MD Signed On:27-MAR-2017 12:36:05 Additional Information: Source: [facility] POWERCHART Document Id: [id number] Miscellaneous - Belinda Granda C.MRodrigoARodrigo - 03/27/2017 11:58 AM CDT Adult Protective Signal Superintendent Intake/History Adult Protective Signal Superintendent Intake/History Entered On: 03/27/2017 12:00 CDT Performed On: 03/27/2017 11:58 CDT by BELINDA GR[facility] Intake Chief Complaint : follow up for [...] 2.36 Body Mass Index : 45.47 kg/m2 BELINDA GR[facility] - 03/27/2017 11:58 CDT General Info Information Given By : Patient Languages : Zimbabwean Is Patient Female and 13-50 no hysterectomy : No BELINDA GR[facility] - 03/27/2017 11:58 CDT Subjective Pain Symptoms : No BELINDA [facility] - 03/27/2017 11:58 CDT Dependent Habits Exposure to Tobacco Smoke : Other: never Smoking Status : Never smoker Tobacco 2A : No Tobacco Use/Currently Using : No Tobacco Use/Last 30 Days : No Tobacco Use/Last 12 months : No BELINDA GR[facility] - 03/27/2017 11:58 CDT Caffeine Use Grid Caffeine Use : Current Type : Soft drinks Frequency : Daily Amount : regular 1-2 cans daily [facility]INDA [facility] - 03/27/2017 11:58 CDT [facility]: [facility] POWERCHART Document Id: [id number] CDT!35 documented in this encounter Plan of Treatment Upcoming Encounters Date Type Specialty Care Team Description 10/19/2022 Procedure visit Neurology Marina Winter M.D., M.P.H. [address] [phone] (Wo rk) Scheduled Procedures Name Priority Associated Diagnoses Date/Time LIFT THIGH Excessive And Redundant Skin And Subcutaneous Tissue documented as of this encounter Visit Diagnoses Not on filedocumented in this encounter Additional Health Concerns Assessment Noted Time PHQ-9 Depression Total Score: 9 12/27/2016 10:29 AM CS T documented as of this encounter
--- OUTSIDE RECORDS SUMMARY | 2022-09-05 06:11 | XMS_ITS | Encounter Summary ---
:1985 Author Organization [facility] Address [address] [place] [address] Care Team Providers Name Role Phone Annemarie Montiel M.D. Primary Care Provider [phone] Encounter Details Date Type Department Care Team Description 07/17/2017 Hospital Encounter HX [facility] FAMILYPRA Daniel Gilmore M.D. [address] [place], [place] [phone] (Wo rk) Social History Tobacco Use Types [...] How often do you attend zoroastrian or restorationist Never 07/04/2019 services? 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 Tejeda Abdominal Hysterectomy [facility] DOS: 07/25/2017 HISTORY OF PRESENT ILLNESS The patient has been scheduled for abdominal hysterectomy by Dr. Tejeda at the [facility] under general anesthesia on 07/25/17 Patient has not had a history of CAD (i.e. no angina pectoris or history of exertional chest pain believed to be CAD and not s/p DE), Asthma, DONN (obstructive sleep apnea), anticoagulation, diabetes, thyroid disease, DVT, bleeding disorder, liver disease, anesthesia reaction, renal insufficiency, rece nt cough, recent fever, current . Patient is able to climb 2 flights of stairs without stopping. MEDICATIONS Effexor XR 75 mg oral capsule, extended release, 75 mg, 1 cap(s), PO, Daily, 4 refills, * [facility] Prescription, Cocunut oil 1000mg tablet daily naproxen [...] GILMORE MD On: 07/17/2017 12:46 PM Source: [facility] POWERCHART Document Id: [id number] documented in this encounter Miscellaneous Notes Miscellaneous [...] Ratio 3.88 07/17/2017 12:31 LDL/HDL 2 Source: [facility] POWERCHART Document Id: [id number] Miscellaneous - Tammy Gilmore M.D. - 07/17/2017 12:47 PM CDT Ambulatory Patient Summary [facility] [address] [place] [id number] Visit Information Name: NANCY PHILLIPS [facility] Number: [id number] Current Date: 07/17/2017 12:47:50 Physicians [...] Date Time Location Provider 08/09/2017 13:15 [facility] SUPERVISOR ASSEMBLY Ayanna Xie NP 08/21/2017 10:30 [facility] FamilyPrac ClubNicki lainez MD 09/06/2017 13:15 [facility] SUPERVISOR ASSEMBLY Ileana RED, Nahun Regalado Attention: Contact your [...] you dont have one. Go to [email or web address] and click on Create Your Account. Then, follow the directions to complete the online form. Youll be asked for your [facility] number which you can find at the top of this document. Your Goals/Additional instructions: Source: [facility] POWERCHART Document Id: [id number] Miscellaneous - Tammy Gilmore M.D. - 07/17/2017 12:47 PM CDT Ambulatory Discharge Medication List [facility] [address] [place] [id number] Visit Information Name: NANCY PHILLIPS [facility] Number: [id number] Current Date: 07/17/2017 12:47:49 Attending Provider: TAMMY GILMORE MD Primary Care Provider: ANNEMARIE MONTIEL MD ALANJOSEPHINENANCYNAILA JOHNSON has been given the [...] MD Signed On:17-JUL-2017 12:47:46 Additional Information: Source: [employer] Document Id: [id number] Miscellaneous - Galina Fisher, C.M.A. - 07/17/2017 11:43 AM CDT Obstructive Sleep Apnea Obstructive Sleep Apnea Entered On: 07/17/2017 11:44 CDT Performed On: 07/17/2017 11:43 CDT by GALINA FISHER [facility] DONN Screening Known Obstructive Sleep Apnea : No - NOT diagnosed with DONN DONN Score : No qualifying data available. DONN Results : No qualifying data available. GALINA FISHER [facility] - 07/17/2017 11:43 CDT DONN Assessment [...] Clinical Score Calc : 5 GALINA FISH[facility] - 07/17/2017 11:43 CDT Source: [employer] Document Id: [id number] CDT!12 Miscellaneous - Galina Fisher CRodrigoMSandra - 07/17/2017 11:39 AM CDT Adult Drying Tumbler Operator Intake/History Adult Drying Tumbler Operator Intake/History Entered On: 07/17/2017 11:43 CDT Performed On: 07/17/2017 11:39 CDT by GALINA FISHER [facility] Intake Chief Complaint : pre-op Dr. Tejeda Abdominal Hysterectomy [facility] DOS: 07/25/2017 LMP Date : 07/10/2017 Temperature [...] Mass Index : 46.59 kg/m2 GALINA [facility] - 07/17/2017 11:39 CDT General Info Information Given By : Patient Languages : Croatian Is Patient Female and 13-50 no hysterectomy : No [facility] - 07/17/2017 11:39 CDT Subjective Pain Symptoms : No [facility]AL[facility] - 07/17/2017 11:39 CDT Dependent Habits Exposure to Tobacco Smoke : Other: never Smoking Status : Never smoker Tobacco 2A : No Tobacco Use/Currently Using : No Tobacco Use/Last 30 Days : No Tobacco Use/Last 12 months : No GALINA [facility] - 07/17/2017 11:39 CDT Caffeine Use Grid Caffeine Use : Current Type : Soft drinks Frequency : Daily Amount : regular 1-2 cans daily [facility]ALINA [facility] - 07/17/2017 11:39 CDT [facility] POWER[facility] Document Id: [id number] CDT!36 documented in this encounter Plan of Treatment Upcoming Encounters Date Type Specialty Care Team Description 10/19/2022 Procedure visit Neurology Marina Winter M.D., M.P.H. [address] [phone] (Wo rk) Scheduled Procedures Name Priority [...] mg/dL Triglycerides 117 <=149 MGDL POWERCHART Comment: 2013 National Lipid Association recommen dations for Triglycerides [...] LDL 147 (H) <=129 MGDL POWERCHART Comment: 2013 National [...] esting for FH and FDB is available wanda [facility]: FH/ADH Genetic Reflex [place] [...] at or the on-line test catalog at [email or web address] for information about how to order these [...] as of this encounter Care Teams Home Aid Relationship Specialty Start Date End Date Annemarie Montiel M.D. PCP - General 04/19/17 [address] [place] [phone] documented as of this encounter
--- OUTSIDE RECORDS SUMMARY | 2022-09-05 06:11 | XMS_ITS | Encounter Summary ---
:1985 Author Organization [facility] Address [address] [place] [address] Care Team Providers Name Role Phone Unavailable Primary Care Provider Unavailable Encounter Details Date Type Department Care Team Description 12/01/2016 Hospital Encounter HX [facility] Ranjit Lee M.D. [address] [place], [place] [phone] (Wo rk) Social History [...] How often do you attend samaritan or zoroastrianism Never 07/04/2019 services? Do you [...] at Date Recorded Female 10/16/2018 10:53 AM BLOCKER HAND documented as of this encounter Last Filed Vital Signs Vital Sign Reading Time Taken Comments Blood Pressure 138/90 12/01/2016 1:45 PM BLOCKER HAND Pulse - - Temperature - - Respiratory Rate - - Oxygen Saturation - - Inhaled Oxygen Concentration - - Weight 126 kg (277 lb 1.9 oz) 12/01/2016 12:54 PM BLOCKER HAND Height 164 cm (5' 4.57) 12/01/2016 1:45 PM BLOCKER HAND Body Mass Index 46.74 12/01/2016 12:54 PM BLOCKER HAND documented in this encounter H&P Notes Cassie Melissa M.D. - 12/01/2016 12:45 PM CST [id number] CHIEF COMPLAINT/REASON FOR VISIT OB followup and [...] vaginal bleeding and leakage of fluid recently, thoughshe reports that 2 days ago she had [...] any concerns about abuse. She is a zwbf-hy-xdzs mom. FAMILY HISTORY Paternal grandfather and paternal [...] MELISSA MD On: 12/01/2016 03:03 PM Source: [facility] MHSDOLBEYNONRADSYS Document Id: [id number] KER HAND documented in this encounter Procedure Notes Tonya العلي L.P.N. - 12/01/2016 1:02 PM CST Urine Dipstick Urine Dipstick Entered On: 12/01/2016 13:03 BLOCKER HAND Performed On: 12/01/2016 13:02 BLOCKER HAND by TONYA العلي LPN Urine Dipstick UA [...] Negative TONYA العلي LPN - 12/01/2016 13:02 BLOCKER HAND Source: [facility] POWERCHART Document Id: [id number] BLOCKER HAND!14 KER HAND documented in this encounter Miscellaneous Notes Telephone Encounter - Conversion, Historical Provider Ser - 12/06/2016 11:33 AM CST *Phone Message/Dr. Hathaway Document Contains Addenda Addendum by KIT HATHAWAY MD on December 06, 2016 12:14:20 BLOCKER HAND From: KIT HATHAWAY MD To: Obstetrics/Gynecology Nurse; Sent: 12/06/2016 12:14:20 BLOCKER HAND Subject: RE: *Phone Message/Dr. Hathaway agree with this plan. Addendum by RADHA HAMMOND RN on December 06, 2016 11:56:36 BLOCKER HAND From: RADHA HAMMOND RN ( Obstetrics/Gynecology Nurse) To: KIT HATHAWAY MD; Sent: 12/06/2016 11:56:36 BLOCKER HAND Subject: FW: *Phone Message/Dr. Hathaway Spoke with [...] would be forwarding her message to the prison psychiatrist physician to see if he has any further advice. From: SANDRA DIETZ ( [place] Dough Mixer) To: Obstetrics/Gynecology Nurse; Sent: 12/06/2016 11:33:01 BLOCKER HAND Subject: *Phone Message/Dr. Hathaway Caller is: ( [...] in today. Please call her back at [phone] to advise. Advice/Action: Source used: ( ) [...] back cell phone number ( ) Source: [facility] ShareTracker Document Id: [id number] Miscellaneous - Cassie Melissa M.D. - 12/01/2016 2:10 PM CST Ambulatory Patient Summary [facility] [address] [place] [id number] Visit Information Name: NANCY PHILLIPS [facility] Number: [id number] Current Date: 12/01/2016 14:10:31 Physicians [...] Appointments Date Time Location Provider 12/27/2016 09:45 [facility] Dinesh RED, Nicki Zuniga Attention: Contact [...] if you dont have one. Go to [email or web address] and click on Create Your Account. Then, follow the directions to complete the online form. Youll be asked for your [facility] number which you can find at the top of this document. Your Goals/Additional instructions: Source: [facility] POWERCHART Document Id: [id number] KER HAND Miscellaneous - Cassie Melissa M.D. - 12/01/2016 2:10 PM CST Ambulatory Discharge Medication List [address] [id number] Visit Information Name: NANCY PHILLIPS [facility] Number: [id number] Current Date: 12/01/2016 14:10:30 Attending [...] MD Signed On:01-DEC-2016 14:10:26 Additional Information: Source: [facility] POWERCHART Document Id: [id number] KER HAND Erickacellaneous - Tonya العلي, L.P.N. - 12/01/2016 1:45 PM CST Ambulatory Vitals Height Weight Ambulatory Vitals Height Weight Entered On: 12/01/2016 13:45 BLOCKER HAND Performed On: 12/01/2016 13:45 BLOCKER HAND by TONYA العلي CONSULTING MARINE ENGINEER Vitals/Ht/Wt Systolic Blood Pressure : 138 mmHg Diastolic Blood Pressure : 90 mmHg (HI) NIBP Mean : 106 mmHg BP Location : Right upper extremity Blood Pressure Cuff Size : Large Height : 164 cm(Converted to: 5 ft 5 inch(es), 65 inch(es)) TONYA العلي LPN - 12/01/2016 13:45 BLOCKER HAND [facility] Document Id: [id number] BLOCKER HAND!8 KER HAND Miscellaneous - Tonya العلي L.P.N. - 12/01/2016 1:44 PM CST Cell Attendant Documentation Cell Attendant Documentation Entered On: 12/01/2016 13:45 BLOCKER HAND Performed On: 12/01/2016 13:44 BLOCKER HAND by TONYA العلي LPN Cell Attendant Documentation Exam/Procedure Performed : Cervical exam CD Cell Attendant Present : Yes CD Cell Attendant Name : Susana PRADEEP العلي Present in Room During Exam/Procedure : Friend TONYA العلي LPN - 12/01/2016 13:44 BLOCKER HAND [facility] Document Id: [id number] BLOCKER HAND!6 KER HAND Miscellaneous - Tonya العلي L.P.N. - 12/01/2016 12:54 PM CST Adult Sister Superior Intake/History Adult Sister Superior Intake/History Entered On: 12/01/2016 12:57 BLOCKER HAND Performed On: 12/01/2016 12:54 BLOCKER HAND by TONYA العلي LPN Intake Chief Complaint [...] Body Mass Index : 46.74 kg/m2 ELIANETONYA Nadia FERNÁNDEZ - 12/01/2016 12:54 BLOCKER HAND General Info Languages : Palestinian Is Patient Female and 13-50 no hysterectomy : Yes Status : Confirmed positive Are you ? : No ELIANETONYA Nadia FERNÁNDEZ - 12/01/2016 12:54 BLOCKER HAND Subjective Pain Symptoms : No ANURAG العليARA Nadia FRENÁNDEZ - 12/01/2016 12:54 BLOCKER HAND Dependent Habits Exposure to Tobacco Smoke : Other: never Smoking Status : Never smoker Tobacco 2A : No Tobacco Use/Currently Using : No Tobacco Use/Last 30 Days : No Tobacco Use/Last 12 months : No TONYA العلي LPN - 12/01/2016 12:54 BLOCKER HAND Caffeine Use Grid Caffeine Use : Current Type : Soft drinks Frequency : Daily Amount : regular 1-2 cans daily TONYA العلي LPN - 12/01/2016 12:54 BLOCKER HAND Source: [facility] POWERCHART Document Id: [id number] BLOCKER HAND!35 KER HAND documented in this encounter Plan of Treatment Upcoming Encounters Date Type Specialty Care Team Description 10/19/2022 Procedure visit Neurology Marina Winter M.D., M.P.H. [address] [place] [phone] (Wo rk) Scheduled Procedures Name Priority Associated Diagnoses Date/Time LIFT THIGH Excessive And Redundant Skin And Subcutaneous Tissue documented as of this encounter Procedures Procedure Name Priority Date/Time Associated Comments Diagnosis DIPSTICK, POCT, U Routine 12/01/2016 1:02 PM Resu lts for this (NURSING) INTERFACED BLOCKER HAND procedu re are in the results section. documented in this encounter Results Dipstick, POCT, Urine (nursing) (12/01/2016 1:02 PM BLOCKER HAND) [facility] Method Time Signature Color Yellow POWERCHART Appearance Clear POWERCHART Leukocytes, 1+ Small POWERCHART POCT, U Nitrites, Negative POWERCHART POCT, U Urobilinogen, 0.2 mg/dl POWERCHART POCT, Urine Protein, POCT, 1+ (30 POWERCHART U mg/dl) pH, POCT, 5.5 5.0 - 9.0 POWERCHART Urine Blood, POCT, U 1+ SMALL POWERCHART Specific 1.030 1.000 - POWERCHART [place], POCT, 1.030 U Ketone, POCT, Negative POWERCHART U Bilirubin, 1+ Small POWERCHART POCT, U Glucose, POCT, Negative POWERCHART U Specimen (Source) Anatomical Collection Method Collection Time Re ceived Time Location / / Volume Laterality 12/01/2016 1:02 PM BLOCKER HAND Cassie Melissa M.D. LAB POCT ORDERABLES - DEVICE Performing Organization Address City/State/ZIP Code Phon e Number POWERCHART documented in this encounter Visit Diagnoses Not on filedocumented in this encounter Additional Health Concerns Assessment Noted Time PHQ-9 Depression Total Score: 13 06/14/2015 3:56 PM CD T documented as of this encounter
--- OUTSIDE RECORDS SUMMARY | 2022-09-05 06:11 | XMS_ITS | Encounter Summary ---
:1985 Author Organization [facility] Address [address] [place] [address] Care Team Providers Name Role Phone Annemarie Montiel M.D. Primary Care Provider [phone] Encounter Details Date Type Department Care Team Description 08/03/2017 Hospital Encounter HX [facility] Promise Rouse M.D. [address] [place], [place] [phone] (Wo rk) Social History [...] How often do you attend methodist or druze Never 07/04/2019 services? 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 - 08/03/2017 11:16 AM CDT Ambulatory Patient Summary [facility] [address] [place] [id number] Visit Information Name: NANCY PHILLIPS [facility] Number: [id number] Current Date: 08/03/2017 11:16:44 [...] Date Time Location Provider 08/09/2017 13:15 [facility] SPOOLER OPERATOR [facility]ie [facility] 09/06/2017 13:15 [facility] SPOOLER OPERATOR Shar Tejeda MD Attention: Contact your local [...] if you dont have one. Go to [email or web address] and click on Create Your Account. Then, follow the directions to complete the online form. Youll be asked for your [facility] number which you can find at the top of this document. Your Goals/Additional instructions: Source: [facility] POWERCHART Document Id: [id number] Miscellaneous - Shar Tejeda M.D. - 08/03/2017 11:16 AM CDT Ambulatory Discharge Medication List [facility] [address] [place] [id number] Visit Information Name: NANCY PHILLIPS [facility] Number: [id number] Current Date: 08/03/2017 11:16:43 [...] MD Signed On:03-AUG-2017 11:16:15 Additional Information: Source: [facility] POWERCHART Document Id: [id number] Miscellaneous - Laverne Conti, L.P.N. - 08/03/2017 11:03 AM CDT Adult Glass Engraver Intake/History Adult Glass Engraver Intake/History Entered On: 08/03/2017 11:06 CDT Performed [...] 08/03/2017 11:03 CDT General Info Languages : Kazakh Is Patient Female and 13-50 no hysterectomy : No LAVERNE CONTI TIPPLE BOSS - 08/03/2017 11:03 CDT Subjective Pain Symptoms : Brittany LAVERNE CONTI LPN - 08/03/2017 11:03 CDT Dependent Habits Exposure to Tobacco Smoke : Other: never Smoking Status : Never smoker Tobacco 2A : No Tobacco Use/Currently Using : No Tobacco Use/Last 30 Days : No Tobacco Use/Last 12 months : No LAVERNE CONTI TIPPLE BOSS - 08/03/2017 11:03 CDT Caffeine Use Grid Caffeine Use : Current Type : Soft drinks Frequency : Daily Amount : regular 1-2 cans daily LAVERNE CONTI TIPPLE BOSS - 08/03/2017 11:03 CDT Source: [employer] Document Id: [id number] CDT!32 documented in this encounter Plan of Treatment Upcoming Encounters Date Type Specialty Care Team Description 10/19/2022 Procedure visit Neurology Marina Winter M.D., M.P.H. [address] [place] [phone] (Wo rk) Scheduled Procedures Name Priority Associated Diagnoses Date/Time LIFT THIGH Excessive And Redundant Skin And Subcutaneous Tissue documented as of this encounter Visit Diagnoses Not on filedocumented in this encounter Additional Health Concerns Assessment Noted Time PHQ-9 Depression Total Score: 9 12/27/2016 10:29 AM CS T documented as of this encounter Care Teams Clerical Aide Teacher Relationship Specialty Start Date End Date Annemarie Montiel M.D. PCP - General 04/19/17 [address] [place] [phone] documented as of this encounter
--- OUTSIDE RECORDS SUMMARY | 2022-09-05 06:12 | XMS_ITS | Encounter Summary ---
:1985 Author Organization [facility] Address [address] [place] [address] Care Team Providers Name Role Phone Unavailable Primary Care Provider Unavailable Encounter Details Date Type Department Care Team Description 11/13/2016 Hospital Encounter HX NO MAPPING Eva Booth M.D. [address] [place], [place] [phone] (Wo rk) Social History [...] How often do you attend mandaeism or restorationism Never 07/04/2019 services? 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 [address] [phone] (Wo rk) Scheduled Procedures Name Priority Associated Diagnoses Date/Time LIFT THIGH Excessive And Redundant Skin And Subcutaneous Tissue documented as of this encounter Visit Diagnoses Not on filedocumented in this encounter Additional Health Concerns Assessment Noted Time PHQ-9 Depression Total Score: 13 06/14/2015 3:56 PM CD T documented as of this encounter
--- OUTSIDE RECORDS SUMMARY | 2022-09-05 06:12 | XMS_ITS | Encounter Summary ---
:1985 Author Organization [facility] Address [address] [place] [address] Care Team Providers Name Role Phone Unavailable Primary Care Provider Unavailable Encounter Details Date Type Department Care Team Description 10/16/2016 Hospital Encounter [facility]X [facility] Kristi Melissa M.D. [address] [place], [place] [phone] (Wo rk) Social History [...] How often do you attend christianity or presybeterian Never 07/04/2019 services? 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 - 10/16/2016 2:34 PM CST Results Notification Document Contains Addenda Addendum by TONYA DEL RIO LPN on October 17, 2016 09:09:35 SPECIAL EVENTS PLANNER added to chart. From: KRISTI MELISSA MD To: RADHA HAMMOND RN; Sent: 10/16/2016 14:34:05 SPECIAL EVENTS PLANNER ! Show up: 10/16/2016 14:34:05 SPECIAL EVENTS PLANNER Subject: Results Notification Actions: Note to Nurse Reminder Comments: Please add 24 hour urine protein result to chart. Please add [id number] to chart to ask her about the amount. Results: Date Result Name Ind Value Ref Range 10/16/2016 11:04 Ur Volume 24 mL 10/16/2016 11:04 Ur Brenda Hrs 875 10/16/2016 11:04 U24 Protein 4 mg/24hr ( - <=150) 10/16/2016 11:04 U24 Creatinine (L) 42 mg/24hr (601 - 1,689) 10/16/2016 11:04 U Protein 15 mg/dL 10/16/2016 11:04 U Creatinine 174 mg/dL (29 - 226) Source: [facility] POWERCHART Document Id: [id number] Electronically signed by Conversion, [facility] Parts Processor [id number] at 04/01/2017 7:17 AM CDT documented in this encounter Plan of Treatment Upcoming Encounters Date Type Specialty Care Team Description 10/19/2022 Procedure visit Neurology Marina Winter M.D., M.P.H. [address] [phone] (Wo rk) Scheduled Procedures Name Priority Associated Diagnoses Date/Time LIFT THIGH Excessive And Redundant Skin And Subcutaneous Tissue documented as of this encounter Procedures Procedure Name Priority Date/Time Associated Diagnosis Comme nts URINE VOLUME Routine 10/16/2016 11:04 AM Results for this SPECIAL EVENTS PLANNER procedure are i n the results section. CREATININE, U Routine 10/16/2016 11:04 AM Results for this SPECIAL EVENTS PLANNER procedure are i n the results section. PROTEIN, TOTAL, 24 Routine 10/16/2016 11:04 AM Re sults for this HR, U SPECIAL EVENTS PLANNER procedure are i n the results section. documented in this encounter Results Urine Volume (10/16/2016 11:04 AM SPECIAL EVENTS PLANNER) athologist Signature Collection 875 POWERCHART Duration Urine Volume 24 ML POWERCHART Specimen Anatomical Collection Method Collection Time Receive d Time (Source) Location / / Volume Laterality Urine 10/16/2016 11:04 10/16/2016 AM SPECIAL EVENTS PLANNER 11:04 AM SPECIAL EVENTS PLANNER Authorizing Provider Result Lupis Melissa M.D. LAB URINE ORDERABLES Performing Organization Address City/State/ZIP Code Phon e Number POWERCHART (ABNORMAL) Creatinine, 24 Hour, Urine (10/16/2016 11:04 AM SPECIAL EVENTS PLANNER) athologist Signature Creatinine, 174 29 - 226 [...] / Volume Laterality Urine 10/16/2016 11:04 AM SPECIAL EVENTS PLANNER Authorizing Provider Result Lupis Melissa M.D. LAB URINE ORDERABLES Performing Organization Address City/State/ZIP Code Phon e Number POWERCHART Protein, Total, 24 Hour, Urine (10/16/2016 11:04 AM SPECIAL EVENTS PLANNER) athologist Signature Protein, U 15 MGDL POWERCHART Predicted 24 Hr 4 <=150 POWERCHART Protein MG24HR Specimen (Source) Anatomical Collection Method Collection Time Re ceived Time Location / / Volume Laterality Urine 10/16/2016 11:04 AM SPECIAL EVENTS PLANNER Authorizing Provider Result Lupis Melissa M.D. LAB URINE ORDERABLES Performing Organization Address City/State/ZIP Code Phon e Number POWERCHART documented in this encounter Visit Diagnoses Not on filedocumented in this encounter Additional Health Concerns Assessment Noted Time PHQ-9 Depression Total Score: 13 06/14/2015 3:56 PM CD T documented as of this encounter
--- OUTSIDE RECORDS SUMMARY | 2022-09-05 06:12 | XMS_ITS | Encounter Summary ---
:1985 Author Organization [facility] Address [address] [place] [address] Care Team Providers Name Role Phone Unavailable Primary Care Provider Unavailable Encounter Details Date Type Department Care Team Description 07/27/2016 Hospital Encounter [facility]X [facility] Promise Rouse M.D. [address] [place], [place] [phone] (Wo rk) Social History [...] How often do you attend mormon or bahai Never 07/04/2019 services? 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 [address] [phone] (Wo rk) Scheduled Procedures Name Priority [...] aneuploidy, as well as congenital heart defects. [facility] in [place] REFINING EQUIPMENT OPERATOR Dept. [phone] Narrative 07/27/2016 3:56 PM CDT EXAM: US OB Greater than 14 weeks INDICATION: Survey REFERRING PHYSICIAN: Ileana AIRPLANE TECHNICIAN: Saige Clifford RDMS. : 5 ?? [...] 14 weeks INDICATION: Survey REFERRING PHYSICIAN: Ileana AIRPLANE TECHNICIAN: Saige Clifford RDMS. : 5 PARA: [...] aneuploidy, as well as congenital heart defects. [facility] in [place] REFINING EQUIPMENT OPERATOR Dept. [phone] Saige Nick R.V.T., R.Frances.M.S. IMG OB US GAMA ES documented in this encounter Visit Diagnoses Not on filedocumented in this encounter Additional Health Concerns Assessment Noted Time PHQ-9 Depression Total Score: 13 06/14/2015 3:56 PM CD T documented as of this encounter
--- OUTSIDE RECORDS SUMMARY | 2022-09-05 06:12 | XMS_ITS | Encounter Summary ---
:1985 Author Organization [facility] Address [address] [place] [address] Care Team Providers Name Role Phone Unavailable Primary Care Provider Unavailable Encounter Details Date Type Department Care Team Description 10/27/2016 Hospital Encounter [facility]X [facility] Ranjit Lee M.D. [address] [place], [place] [phone] (Wo rk) Social History [...] How often do you attend restorationism or church Never 07/04/2019 services? 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 - 10/27/2016 7:55 AM CST [id number] CHIEF COMPLAINT/REASON FOR VISIT OB followup and [...] into the EMR and updated today. IMPRESSION/REPORT/PLAN Mpvdtb-oxil-vgn 5, para 3-0-1-3 female at 33+3 weeks [...] MELISSA MD On: 11/02/2016 03:05 PM Source: [facility] MHSDOLBEYNONRADSYS Document Id: [id number] OM PRESSER documented in this encounter Procedure Notes Alexandra العلي L.PRodrigoNRodrigo - 10/27/2016 8:19 AM CST Urine Dipstick Urine Dipstick Entered On: 10/27/2016 8:19 BOTTOM PRESSER Performed On: 10/27/2016 8:19 BOTTOM PRESSER by ALEXANDRA العلي LPN Urine Dipstick UA Color POC : Yellow UA Appear POC : Clear UA Protein POC : Trace UA Glucose POC : Negative ALEXANDRA العلي LPN - 10/27/2016 8:19 BOTTOM PRESSER Source: [facility] POWERCHART Document Id: [id number] BOTTOM PRESSER!6 OM PRESSER documented in this encounter Nursing Notes Alexandra العلي L.PRodrigoNRodrigo - 10/27/2016 8:18 AM CST Zika At this time, there are 3 screening questions: 1. Have you or your partner traveled outside of [place] up to 6 months prior to this ? No 2. If so, where specifically have you or your partner traveled? Country, state? NA 3. If you or your partner have traveled to [place] since April 19, 2016; where in [place] did you travel? No Electronically Signed By: ALEXANDRA العلي LPN On: 10/27/2016 08:18 AM Source: [facility] POWERCHART Document Id: [id number] OM PRESSER documented in this encounter Miscellaneous Notes Miscellaneous - Kristi Melissa M.D. - 10/30/2016 11:44 AM CST Ambulatory Patient Summary [address] [id number] Visit Information Name: NANCY PHILLIPS [facility] Number: [id number] Current Date: 10/30/2016 11:44:36 Physicians [...] Date Time Location Provider 11/10/2016 11:30 MERE OFFICE ASSOCIATE Kristi Melissa MD 11/17/2016 14:30 MERE OFFICE ASSOCIATE Kristi Melissa MD 11/24/2016 14:30 MERE OFFICE ASSOCIATE Kristi Melissa MD Attention: Contact your local [...] if you dont have one. Go to [email or web address] and click on Create Your Account. Then, follow the directions to complete the online form. Youll be asked for your [facility] number which you can find at the top of this document. Your Goals/Additional instructions: Source: [facility] POWERCHART Document Id: [id number] OM PRESSER Miscellaneous - Kristi Melissa M.D. - 10/30/2016 11:44 AM CST Ambulatory Discharge Medication List [address] [id number] Visit Information Name: NANCY PHILLIPS [facility] Number: [id number] Current Date: 10/30/2016 11:44:36 Attending [...] MD Signed On:30-OCT-2016 11:44:34 Additional Information: Source: [facility] POWERCHART Document Id: [id number] OM PRESSER Miscellaneous - Alexandra العلي, L.P.N. - 10/27/2016 8:41 AM CST Consulting Services Project Manager Documentation Consulting Services Project Manager Documentation Entered On: 10/27/2016 8:42 BOTTOM PRESSER Performed On: 10/27/2016 8:41 BOTTOM PRESSER by ALEXANDRA العلي LPN Consulting Services Project Manager Documentation Exam/Procedure Performed : Cervical check CD Consulting Services Project Manager Present : Yes CD Consulting Services Project Manager Name : Susana العلي LPN Present in Room During Exam/Procedure : Alone ALEXANDRA العلي LPN - 10/27/2016 8:41 BOTTOM PRESSER Source: [facility] POWERCHART Document Id: [id number] BOTTOM PRESSER!6 OM PRESSER Miscellaneous - Alexandra العلي L.P.N. - 10/27/2016 8:10 AM CST Adult Meter And Regulator Shop Supervisor Intake/History Adult Meter And Regulator Shop Supervisor Intake/History Entered On: 10/27/2016 8:11 BOTTOM PRESSER Performed On: 10/27/2016 8:10 BOTTOM PRESSER by ALEXANDRA العلي LPN Intake Chief Complaint [...] kg/m2 ALEXANDRA العلي LPN - 10/27/2016 8:10 BOTTOM PRESSER General Info Languages : Cypriot Is Patient Female and 13-50 no hysterectomy : Yes Status : Confirmed positive Are you ? : No ALEXANDRA العلي LPN - 10/27/2016 8:10 BOTTOM PRESSER Subjective Pain Symptoms : No ALEXANDRA العلي LPN - 10/27/2016 8:10 BOTTOM PRESSER Dependent Habits Exposure to Tobacco Smoke : Other: never Smoking Status : Never smoker Tobacco 2A : No Tobacco Use/Currently Using : No Tobacco Use/Last 30 Days : No Tobacco Use/Last 12 months : No ALEXANDRA العلي LPN - 10/27/2016 8:10 BOTTOM PRESSER Caffeine Use Grid Caffeine Use : Current Type : Soft drinks Frequency : Daily Amount : regular 1-2 cans daily ALEXANDRA العلي LPN - 10/27/2016 8:10 BOTTOM PRESSER Source: [facility] POWERCHART Document Id: [id number] BOTTOM PRESSER!35 OM PRESSER documented in this encounter Plan of Treatment Upcoming Encounters Date Type Specialty Care Team Description 10/19/2022 Procedure visit Neurology Marina Winter M.D., M.P.H. [address] [phone] (Wo rk) Scheduled Procedures Name Priority Associated Diagnoses Date/Time LIFT THIGH Excessive And Redundant Skin And Subcutaneous Tissue documented as of this encounter Procedures Procedure Name Priority Date/Time Associated Comments Diagnosis DIPSTICK, POCT, U Routine 10/27/2016 8:19 AM Resu lts for this (NURSING) INTERFACED BOTTOM PRESSER procedu re are in the results section. documented in this encounter Results Dipstick, POCT, Urine (nursing) (10/27/2016 8:19 AM BOTTOM PRESSER) Analysis Performed At Patho logist Time Signature Color Yellow POWERCHART Appearance Clear POWERCHART Protein, POCT, Trace POWERCHART U Glucose, POCT, Negative POWERCHART U Specimen (Source) Anatomical Collection Method Collection Time Re ceived Time Location / / Volume Laterality 10/27/2016 8:19 AM BOTTOM PRESSER Kristi Melissa M.D. LAB POCT ORDERABLES - DEVICE Performing Organization Address City/State/ZIP Code Phon e Number POWERCHART documented in this encounter Visit Diagnoses Not on filedocumented in this encounter Additional Health Concerns Assessment Noted Time PHQ-9 Depression Total Score: 13 06/14/2015 3:56 PM CD T documented as of this encounter
--- OUTSIDE RECORDS SUMMARY | 2022-09-05 06:12 | XMS_ITS | Encounter Summary ---
:1985 Author Organization [facility] Address [address] [place] [address] Care Team Providers Name Role Phone Unavailable Primary Care Provider Unavailable Encounter Details Date Type Department Care Team Description 06/22/2016 Hospital Encounter [facility]X [facility] Promise Rouse M.D. [address] [place], [place] [phone] (Wo rk) Social [...] How often do you attend evangelical or moravian Never 07/04/2019 services? 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 - 06/22/2016 4:49 PM CDT Ambulatory Discharge Medication List [facility] [address] [place] [id number] Visit Information Name: NANCY PHILLIPS [facility] Number: [id number] Visit Date: 06/22/2016 16:49:16 Attending [...] MD Signed On:22-JUN-2016 16:49:13 Additional Information: Source: [facility] POWERCHART Document Id: [id number] Miscellaneous - Shar Tejeda M.D. - 06/22/2016 4:49 PM CDT Ambulatory Patient Summary [facility] [address] [place] [id number] Visit Information Name: NANCY PHILLIPS [facility] Number: [id number] Current Date: 06/22/2016 16:49:16 Physicians Attending Provider: SHRA TEJEDA MD Primary Care Provider: MAILE ZARATE [...] Date Time Location Provider 07/27/2016 13:00 OWOC BLOCKER AND SEWER OWOC Client Advocate Ultrasound Room 3 07/27/2016 14:00 OWOC BLOCKER AND SEWER Shar Tejeda MD 08/24/2016 13:30 OWOC BLOCKER AND SEWER Shar Tejeda MD Attention: Contact your local [...] you dont have one. Go to [email or web address] and click on Create Your Account. Then, follow the directions to complete the online form. Youll be asked for your [facility] number which you can find at the top of this document. Your Goals/Additional instructions: Source: [facility] POWERCHART Document Id: [id number] Miscellaneous - Chinyere Espinal L.P.N. - 06/22/2016 2:47 PM CDT Adult Ground Nuclear Weapons Assembly Officer Intake/History Adult Ground Nuclear Weapons Assembly Officer Intake/History Entered On: 06/22/2016 14:50 CDT Performed [...] Information Given By : Patient Languages : Nepali Is Patient Female and 13-50 no hysterectomy [...] ESPINAL PRADEEP - 06/22/2016 14:47 CDT Source: [email or web address] Document Id: [id number] CDT!42 documented in this encounter Plan of Treatment Upcoming Encounters Date Type Specialty Care Team Description 10/19/2022 Procedure visit Neurology Marina Winter M.D., M.P.H. [address] [phone] (Wo rk) Scheduled Procedures Name Priority Associated Diagnoses Date/Time LIFT THIGH Excessive And Redundant Skin And Subcutaneous Tissue documented as of this encounter Visit Diagnoses Not on filedocumented in this encounter Additional Health Concerns Assessment Noted Time PHQ-9 Depression Total Score: 13 06/14/2015 3:56 PM CD T documented as of this encounter
--- OUTSIDE RECORDS SUMMARY | 2022-09-05 06:12 | XMS_ITS | Encounter Summary ---
:1985 Author Organization [facility] Address [address] [place] [address] Care Team Providers Name Role Phone Unavailable Primary Care Provider Unavailable Encounter Details Date Type Department Care Team Description 11/02/2016 Hospital Encounter [facility]X [facility] Ranjit Lee M.D. [address] [place], [place] [phone] (Wo rk) Social History [...] How often do you attend jainism or hindu Never 07/04/2019 services? 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 - 11/02/2016 2:09 PM CST [id number] CHIEF COMPLAINT/REASON FOR VISIT Acute OB visit [...] Delivery for this. Per the notes from [facility], she had contractions every 3 to [...] at 4 mg. 10. Followup: One week. Cassie Melissa M.D./pepe Electronically Signed By: CASSIE MELISSA MD On: 11/06/2016 01:18 PM Source: [facility] MHSDOLKARIEYNONRADSYS Document Id: [id number] DRAWING SETTER documented in this encounter Procedure Notes Cassie Melissa M.D. - 11/02/2016 12:00 AM CST [...] monitor. IMPRESSION Reactive nonstress test, no contractions. Cassie Melissa M.D./israel Electronically Signed By: CASSIE MELISSA MD On: 11/06/2016 01:17 PM Source: [facility] MHSDOLKARIEYNYUMIKO Document Id: [id number] DRAWING SETTER documented in this encounter Miscellaneous Notes Miscellaneous - Cassie Melissa M.D. - 11/02/2016 4:21 PM CST Ambulatory Patient Summary [address] [id number] Visit Information Name: NANCY PHILLIPS [facility] Number: [id number] Current Date: 11/02/2016 16:21:01 Physicians Attending Provider: CASSIE MELISSA MD Primary [...] Electronically Signed By: CASSIE MELISSA MD Signed On:02-NOV-2016 16:20:58 Your Allergies [...] Date Time Location Provider 11/10/2016 11:30 MERE PHOTOGRAPHIC DEVELOPER AND PRINTER Cassie Melissa MD 11/17/2016 14:30 MERE PHOTOGRAPHIC DEVELOPER AND PRINTER Cassie Melissa MD 11/24/2016 14:30 MERE PHOTOGRAPHIC DEVELOPER AND PRINTER Cassie Melissa MD Attention: Contact your local [...] if you dont have one. Go to [email or web address] and click on Create Your Account. Then, follow the directions to complete the online form. Youll be asked for your [facility] number which you can find at the top of this document. Your Goals/Additional instructions: Source: [facility] POWERCHART Document Id: [id number] DRAWING SETTER Miscellaneous - Cassie Melissa M.D. - 11/02/2016 4:21 PM CST Ambulatory Discharge Medication List [address] [id number] Visit Information Name: JOSEPHINE PHILLIPSSSMARIEL ORANTESE [facility] Number: [id number] Current Date: 11/02/2016 16:21:00 Attending Provider: CASSIE MELISSA MD Primary Care Provider: MAILE ZARATE MD ALAN NANCY ELIZABETH has been given the following [...] Electronically Signed By: CASSIE MELISSA MD Signed On:02-NOV-2016 16:20:58 Additional Information: Source: [facility] POWERCHART Document Id: [id number] DRAWING SETTER Miscellaneous - Tonya العلي L.P.N. - 11/02/2016 2:17 PM CST Adult Heritage Consultant Intake/History Adult Heritage Consultant Intake/History Entered On: 11/02/2016 14:18 WIRE DRAWING SETTER Performed On: 11/02/2016 14:17 WIRE DRAWING SETTER by TONYA العلي LPN Intake Chief Complaint [...] 2.41 Body Mass Index : 47.55 kg/m2 TONYA العلي LPN - 11/02/2016 14:17 WIRE DRAWING SETTER General Info Languages : Kiswahili Is Patient Female and 13-50 no hysterectomy : Yes Status : Confirmed positive Are you ? : No TONYA العلي LPN - 11/02/2016 14:17 WIRE DRAWING SETTER Subjective Pain Symptoms : No TONYA العلي LPN - 11/02/2016 14:17 WIRE DRAWING SETTER Dependent Habits Exposure to Tobacco Smoke : Other: never Smoking Status : Never smoker Tobacco 2A : No Tobacco Use/Currently Using : No Tobacco Use/Last 30 Days : No Tobacco Use/Last 12 months : No TONYA العلي LPN - 11/02/2016 14:17 WIRE DRAWING SETTER Caffeine Use Grid Caffeine Use : Current Type : Soft drinks Frequency : Daily Amount : regular 1-2 cans daily TONYA العلي LPN - 11/02/2016 14:17 WIRE DRAWING SETTER Source: [facility] POWERCHART Document Id: [id number] WIRE DRAWING SETTER!35 DRAWING SETTER documented in this encounter Plan of Treatment Upcoming Encounters Date Type Specialty Care Team Description 10/19/2022 Procedure visit Neurology Marina Winetr M.D., M.P.H. [address] [phone] (Wo rk) Scheduled Procedures Name Priority Associated Diagnoses Date/Time LIFT THIGH Excessive And Redundant Skin And Subcutaneous Tissue documented as of this encounter Visit Diagnoses Not on filedocumented in this encounter Additional Health Concerns Assessment Noted Time PHQ-9 Depression Total Score: 13 06/14/2015 3:56 PM CD T documented as of this encounter
--- OUTSIDE RECORDS SUMMARY | 2022-09-05 06:12 | XMS_ITS | Encounter Summary ---
:1985 Author Organization [facility] Address [address] [place] [address] Care Team Providers Name Role Phone Unavailable Primary Care Provider Unavailable Encounter Details Date Type Department Care Team Description 04/27/2016 Hospital Encounter HX [facility] Promise Rouse M.D. [address] [place], [place] [phone] (Wo rk) Social History [...] How often do you attend baptist or episcopalian Never 07/04/2019 services? 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 [address] [place] [phone] (Wo rk) Scheduled Procedures Name Priority [...] seven days in the fir st trimester. [facility] [place] LITHOGRAPH PRESS OPERATOR TINWARE Dept. [phone] Narrative 04/27/2016 3:46 PM CDT EXAM: US OB Transvaginal INDICATION: Dates, viability REFERRING PHYSICIAN: Dr. Tejeda COMPARISON: None LMP: 03/07/2016 NIMA by LMP: 12/12/2016 : 5 PARA: 3 NUMBER: One CARDIAC ACTIVITY: Yes HEART RATE: 140 beats per minute. GESTATIONAL SAC = N/A ??cm = N/A weeks a nd N/A days. Gestational sac is measured only if [place] rump length (CRL) is not able [...] Visually normal, no adnexal mass es detected. STITCHER STANDARD MACHINE: Saige Clifford RDMS. Procedure Note Dona Villa [...] days. Gestational sac is measured only if [place] rump length (CRL) is not able to be determined. Multiple measurements of the CRL reveal an average ultrasound age of 6 weeks and 5 days. See 'IMPRESSION' bel for ultrasound calculation of Estimated Date of Deliver y (NIMA). RIGHT OVARY: Unable to adequately image LEFT OVARY: Unable to adequately image UTERUS: Appears within normal limits. UTERINE POSITION: Anteverted. CUL DE SAC: Normal. ADNEXA: Visually normal, no adnexal mass es detected. STITCHER STANDARD MACHINE: Saige Clifford RDMS. IMPRESSION: 1. Single Viable Intrauterine with NIMA of 12/16/2016, consistent with menstrual dates. In general, it is reasonable to use the sonographically derived NIMA if it differs from that calculated using the last menstrual period (LMP) by more than seven days in the fir st trimester. [facility] in [place] LITHOGRAPH PRESS OPERATOR TINWARE Dept. [phone] Saige Nick R.V.T., RAnika.M.S. IMG OB US PROCEDUR ES documented in this encounter Visit Diagnoses Not on filedocumented in this encounter Additional Health Concerns Assessment Noted Time PHQ-9 Depression Total Score: 13 06/14/2015 3:56 PM CD T documented as of this encounter
--- OUTSIDE RECORDS SUMMARY | 2022-09-05 06:12 | XMS_ITS | Encounter Summary ---
:1985 Author Organization [facility] Address [address] [place] [address] Care Team Providers Name Role Phone Unavailable Primary Care Provider Unavailable Encounter Details Date Type Department Care Team Description 04/20/2016 Hospital Encounter HX NO MAPPING Nahun Tejeda M.D. [address] [place], [place] [phone] (Wo rk) Social History [...] How often do you attend christian or rastafari Never 07/04/2019 services? 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 [address] [phone] (Wo rk) Scheduled Procedures Name Priority Associated Diagnoses Date/Time LIFT THIGH Excessive And Redundant Skin And Subcutaneous Tissue documented as of this encounter Visit Diagnoses Not on filedocumented in this encounter Additional Health Concerns Assessment Noted Time PHQ-9 Depression Total Score: 13 06/14/2015 3:56 PM CD T documented as of this encounter
--- OUTSIDE RECORDS SUMMARY | 2022-09-05 06:12 | XMS_ITS | Encounter Summary ---
:1985 Author Organization [facility] Address [address] [place] [address] Care Team Providers Name Role Phone Unavailable [...] How often do you attend tenriism or evangelical Never 07/04/2019 services? Do you [...] at Date Recorded Female 10/16/2018 10:53 AM BURLAP BAG SEWER documented as of this encounter Last Filed [...] Bangura M.D. - 04/17/2016 3:56 PM CDT [id number] CHIEF COMPLAINT/REASON FOR VISIT Cough. HISTORY OF [...] BANGURA MD On: 04/18/2016 04:03 PM Source: [facility] MHSDOLBEYNONRADSYS Document Id: [id number] documented in this encounter Miscellaneous Notes Miscellaneous - Pierre Bangura M.D. - 04/17/2016 4:33 PM CDT Ambulatory Patient Summary [facility] [address] [place] [address], [place] [phone] Visit Information Name: NANCY PHILLIPS [facility] Number: [id number] Current Date: 04/17/2016 16:33:17 Physicians [...] directed x 5 day(s) New Routed to [facility] [address] [place] [id number] multivitamin, ( Multivitamins) 1 TAB, Oral, once [...] Date Time Location Provider 05/11/2016 10:30 [facility] HEALTH COACH Nahun Tejeda MD 05/29/2016 12:30 [facility] InternMed [...] if you dont have one. Go to [email or web address] and click on Create Your Account. Then, follow the directions to complete the online form. Youll be asked for your [facility] number which you can find at the top of this document. Your Goals/Additional instructions: Source: [facility] POWERCHART Document Id: [id number] Miscellaneous - Pierre Bangura M.D. - 04/17/2016 4:33 PM CDT Ambulatory Discharge Medication List [address] [id number] Visit Information Name: NANCY PHILLIPS [facility] Number: [id number] Visit Date: 04/17/2016 16:33:17 Attending [...] directed x 5 day(s) New Routed to [facility] [address] [place] [address] multivitamin, ( Multivitamins) 1 TAB, Oral, once [...] MD Signed On:17-APR-2016 16:33:15 Additional Information: Source: [facility] POWERCHART Document Id: [id number] Miscellaneous - Tammi Hernandez L.P.N. - 04/17/2016 4:02 PM CDT Adult Assembler Body Intake/History Adult Assembler Body Intake/History Entered On: 04/17/2016 16:07 CDT Performed [...] Preferred Communication Mode : Verbal Languages : Italian Is Patient Female and 13-50 no hysterectomy [...] HERNANDEZ LPN - 04/17/2016 16:02 CDT Source: [employer] Document Id: [id number] CDT!46 documented in this encounter Plan of Treatment Upcoming Encounters Date Type Specialty Care Team Description 10/19/2022 Procedure visit Neurology Marina Winter M.D., M.P.H. [address] [phone] (Wo rk) Scheduled Procedures Name Priority Associated Diagnoses Date/Time LIFT THIGH Excessive And Redundant Skin And Subcutaneous Tissue documented as of this encounter Visit Diagnoses Not on filedocumented in this encounter Additional Health Concerns Assessment Noted Time PHQ-9 Depression Total Score: 13 06/14/2015 3:56 PM CD T documented as of this encounter
--- OUTSIDE RECORDS SUMMARY | 2022-09-05 06:12 | XMS_ITS | Encounter Summary ---
:[address] [facility] Address [address] [place] [address] Care Team Providers Name Role Phone Unavailable Primary Care Provider Unavailable Encounter Details Date Type Department Care Team Description 09/21/2016 Hospital Encounter HX [facility] Promise Rouse M.D. [address] [place], [place] [phone] (Wo rk) Social History [...] How often do you attend hindu or temple Never 07/04/2019 services? Do you [...] Comments Blood Pressure 122/68 09/21/2016 8:49 AM DIAMOND MERCHANT Pulse - - Temperature - - Respiratory Rate - - Oxygen Saturation - - Inhaled Oxygen Concentration - - Weight 131 kg (288 lb 5.8 oz) 09/21/2016 8:49 AM DIAMOND MERCHANT Height 164 cm (5' 4.57) 09/21/2016 8:49 AM DIAMOND MERCHANT Body Mass Index 48.63 09/21/2016 8:49 AM DIAMOND MERCHANT documented in this encounter Progress Notes Shar Tejeda M.D. - 09/21/2016 9:46 AM CST CHIEF COMPLAINT: care, third trimester. HISTORY OF PRESENT ILLNESS: This patient presents for a visit in the third trimester. She is being treated for right frontal sinusitis and the facial pain is improving, but the right side of her face is still pump operator to touch. She has been sick since [...] TEJEDA MD On: 09/21/2016 09:48 AM Source: [facility] POWERCHART Document Id: [id number] OND MERCHANT documented in this encounter Miscellaneous Notes Miscellaneous - Shar Tejeda M.D. - 09/21/2016 9:46 AM CST Ambulatory Patient Summary [address] [id number] Visit Information Name: NANCY PHILLIPS [facility] Number: [id number] Current Date: 09/21/2016 09:46:12 Physicians [...] Date Time Location Provider 10/05/2016 13:15 [facility] WET END HELPER Shar Tejeda MD 10/13/2016 09:45 [facility] WET END HELPER Emmy RED, Cassie 10/19/2016 13:15 [facility] WET END HELPER Shar Tejeda MD 11/02/2016 13:15 [facility] WET END HELPER Shar Tejeda MD 11/16/2016 13:15 [facility] WET END HELPER Shar Tejeda MD 11/23/2016 13:15 [facility] WET END HELPER Shar Tejeda MD 12/15/2016 11:15 [facility] WET END HELPER Ayanna Xie NP 01/12/2017 13:15 [facility] WET END HELPER Shar Tejeda MD Attention: Contact your local [...] asked for your [facility] number which you can find at the top of this document. Your Goals/Additional instructions: Source: [facility] POWERCHART Document Id: [id number] OND MERCHANT Miscellaneous - Shar Tejeda M.D. - 09/21/2016 9:46 AM CST Ambulatory Discharge Medication List [facility] [address] [place] [id number] Visit Information Name: NANCY PHILLIPS [facility] Number: [id number] Current Date: 09/21/2016 09:46:11 Attending [...] MD Signed On:21-SEP-2016 09:46:08 Additional Information: Source: [facility] POWERCHART Document Id: [id number] OND MERCHANT Miscellaneous - Laverne Conti, L.P.N. - 09/21/2016 8:49 AM CST Adult Circle Shear Operator Intake/History Adult Circle Shear Operator Intake/History Entered On: 09/21/2016 8:53 DIAMOND MERCHANT Performed On: 09/21/2016 8:49 DIAMOND MERCHANT by LAVERNE CONTI LPN Intake Chief Complaint [...] kg/m2 LAVERNE CONTI LPN - 09/21/2016 8:49 DIAMOND MERCHANT General Info Languages : Somali Is Patient Female and 13-50 no hysterectomy : No LAVERNE CONTI LPN - 09/21/2016 8:49 DIAMOND MERCHANT Subjective Pain Symptoms : No LAVERNE CONTI LPN - 09/21/2016 8:49 DIAMOND MERCHANT Dependent Habits Exposure to Tobacco Smoke : Other: never Smoking Status : Never smoker Tobacco 2A : No Tobacco Use/Currently Using : No Tobacco Use/Last 30 Days : No Tobacco Use/Last 12 months : No LAVERNE CONTI LPN - 09/21/2016 8:49 DIAMOND MERCHANT Caffeine Use Grid Caffeine Use : Current Type : Soft drinks Frequency : Daily Amount : regular 1-2 cans daily LAVERNE CONTI LPN - 09/21/2016 8:49 DIAMOND MERCHANT Source: [employer] Document Id: [id number] DIAMOND MERCHANT!31 OND MERCHANT documented in this encounter Plan of Treatment Upcoming Encounters Date Type Specialty Care Team Description 10/19/2022 Procedure visit Neurology Marina Winter M.D., M.P.H. [address] [phone] (Wo rk) Scheduled Procedures Name Priority Associated Diagnoses Date/Time LIFT THIGH Excessive And Redundant Skin And Subcutaneous Tissue documented as of this encounter Visit Diagnoses Not on filedocumented in this encounter Additional Health Concerns Assessment Noted Time PHQ-9 Depression Total Score: 13 06/14/2015 3:56 PM CD T documented as of this encounter
--- OUTSIDE RECORDS SUMMARY | 2022-09-05 06:12 | XMS_ITS | Encounter Summary ---
:1985 Author Organization [facility] Address [address] [place] [address] Care Team Providers Name Role Phone Unavailable Primary Care Provider Unavailable Encounter Details Date Type Department Care Team Description 04/20/2016 Hospital Encounter HX NO MAPPING Nahun Tejeda M.D. [address] [place], [place] [phone] (Wo rk) Social History [...] How often do you attend samaritan or uatsdin Never 07/04/2019 services? 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 [address] [place] [phone] (Wo rk) Scheduled Procedures Name Priority Associated Diagnoses Date/Time LIFT THIGH Excessive And Redundant Skin And Subcutaneous Tissue documented as of this encounter Visit Diagnoses Not on filedocumented in this encounter Additional Health Concerns Assessment Noted Time PHQ-9 Depression Total Score: 13 06/14/2015 3:56 PM CD T documented as of this encounter
--- OUTSIDE RECORDS SUMMARY | 2022-09-05 06:12 | XMS_ITS | Encounter Summary ---
:1985 Author Organization [facility] Address [address] [place] [address] Care Team Providers Name Role Phone Unavailable Primary Care Provider Unavailable Encounter Details Date Type Department Care Team Description 05/25/2016 Hospital Encounter HX [facility] Promise Rouse M.D. [address] [place], [place] [phone] (Wo rk) Social [...] How often do you attend gnosticism or sikhism Never 07/04/2019 services? 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 - 05/25/2016 2:39 PM CDT Ambulatory Discharge Medication List [address] [id number] Visit Information Name: NANCY PHILLIPS [facility] Number: [id number] Visit Date: 05/25/2016 14:39:14 Attending [...] MD Signed On:25-MAY-2016 14:39:12 Additional Information: Source: [facility] POWERCHART Document Id: [id number] Miscellaneous - Shar Tejeda M.D. - 05/25/2016 2:39 PM CDT Ambulatory Patient Summary [address] [id number] Visit Information Name: NANCY PHILLIPS [facility] Number: [id number] Current Date: 05/25/2016 14:39:15 Physicians [...] InternMed [address] 06/22/2016 15:00 [facility] SUPERVISOR CRACK OFF Shar Tejeda MD 07/27/2016 13:00 [facility] SUPERVISOR CRACK OFF OW[facility] Warranty Manager Ultrasound Room 3 07/27/2016 14:00 [facility] SUPERVISOR CRACK OFF Shar Tejeda MD 08/24/2016 13:30 [facility] SUPERVISOR CRACK OFF Shar Tejeda MD Attention: Contact your local [...] if you dont have one. Go to [email or web address] and click on Create Your Account. Then, follow the directions to complete the online form. Youll be asked for your [facility] number which you can find at the top of this document. Your Goals/Additional instructions: Source: [employer] Document Id: [id number] Miscellaneous - Laverne Conti L.PRodrigoN. - 05/25/2016 2:10 PM CDT Adult Sales Teacher Intake/History Adult Sales Teacher Intake/History Entered On: 05/25/2016 14:12 CDT Performed [...] 05/25/2016 14:10 CDT General Info Languages : Solomon Islander Is Patient Female and 13-50 no hysterectomy [...] CONTI LPN - 05/25/2016 14:10 CDT Source: [employer] Document Id: [id number] CDT!31 documented in this encounter Plan of Treatment Upcoming Encounters Date Type Specialty Care Team Description 10/19/2022 Procedure visit Neurology Marina Winter M.D., M.P.H. [address] [phone] (Wo rk) Scheduled Procedures Name Priority Associated Diagnoses Date/Time LIFT THIGH Excessive And Redundant Skin And Subcutaneous Tissue documented as of this encounter Visit Diagnoses Not on filedocumented in this encounter Additional Health Concerns Assessment Noted Time PHQ-9 Depression Total Score: 13 06/14/2015 3:56 PM CD T documented as of this encounter
--- OUTSIDE RECORDS SUMMARY | 2022-09-05 06:12 | XMS_ITS | Encounter Summary ---
:1985 Author Organization [facility] Address [address] [place] [address] Care Team Providers Name Role Phone Unavailable Primary Care Provider Unavailable Encounter Details Date Type Department Care Team Description 06/03/2016 Hospital Encounter HX NO MAPPING Mamie Griffith PRodrigoA. 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 [address] [phone] (Wo rk) Scheduled Procedures Name Priority Associated Diagnoses Date/Time LIFT THIGH Excessive And Redundant Skin And Subcutaneous Tissue documented as of this encounter Visit Diagnoses Not on filedocumented in this encounter Additional Health Concerns Assessment Noted Time PHQ-9 Depression Total Score: 13 06/14/2015 3:56 PM CD T documented as of this encounter
--- OUTSIDE RECORDS SUMMARY | 2022-09-05 06:12 | XMS_ITS | Encounter Summary ---
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 [address] [phone] (Wo rk) Scheduled Procedures Name Priority Associated Diagnoses Date/Time LIFT THIGH Excessive And Redundant Skin And Subcutaneous Tissue documented as of this encounter Visit Diagnoses Not on filedocumented in this encounter Additional Health Concerns Assessment Noted Time PHQ-9 Depression Total Score: 13 06/14/2015 3:56 PM CD T documented as of this encounter
--- OUTSIDE RECORDS SUMMARY | 2022-09-05 06:12 | XMS_ITS | Encounter Summary ---
:1985 Author Organization [facility] Address [address] [place] [address] Care Team Providers Name Role Phone Unavailable Primary Care Provider Unavailable Encounter Details Date Type Department Care Team Description 11/10/2016 Hospital Encounter HX [facility] Ranjit Lee M.D. [address] [place], [place] [phone] (Wo rk) Social History [...] How often do you attend uatsdin or baptist Never 07/04/2019 services? Do you [...] at Date Recorded Female 10/16/2018 10:53 AM VASCULAR MANAGER documented as of this encounter Last Filed Vital Signs Vital Sign Reading Time Taken Comments Blood Pressure 130/88 11/10/2016 11:29 AM VASCULAR MANAGER Pulse - - Temperature - - Respiratory Rate - - Oxygen Saturation - - Inhaled Oxygen Concentration - - Weight 127 kg (279 lb 1.6 oz) 11/10/2016 11:29 AM VASCULAR MANAGER Height 164 cm (5' 4.57) 11/10/2016 11:29 AM VASCULAR MANAGER Body Mass Index 47.07 11/10/2016 11:29 AM VASCULAR MANAGER documented in this encounter Progress Notes Cassie Melissa M.D. - 11/10/2016 10:55 AM CST [id number] CHIEF COMPLAINT/REASON FOR VISIT OB followup. HISTORY [...] contractions and has been seen at the center for this. Since I saw her [...] was reactive today. 11. Followup: One week. Cassie Melissa M.D./pepe Electronically Signed By: CASSIE MELISSA MD On: 11/13/2016 05:22 PM Modified by and Electronically Signed by: CASSIE MELISSA MD On: 11/13/2016 05:22 PM Source: [facility] Document Id: [id number] ULAR MANAGER documented in this encounter Procedure Notes Cassie Melissa M.D. - 11/10/2016 12:00 AM CST 2RPT INDICATIONS A 31-year-old 5, para 3-0-1-3 female at 35 plus 3 weeks by last menstrual period, consistentwith 7 plus 1 week ultrasound who presented for OB followup today but describes decreased movement, and therefore, NST was recommended. PROCEDURE HEART TONES: Baseline 125, moderate variability, reactive, no decelerations. TOCOMETER: No contractions. IMPRESSION Reactive nonstress test. Cassie Melissa M.D./pepe Electronically Signed By: CASSIE MELISSA MD On: 11/13/2016 05:19 PM [facility] Document Id: [id number] ULAR MANAGER documented in this encounter Nursing Notes Tonya العلي L.P.N. - 11/10/2016 11:40 AM CST Zika At this time, there are 3 screening questions: 1. Have you or your partner traveled outside of [place] up to 6 months prior to this ? No- Denies 2. If so, where specifically have you or your partner traveled? Country, state? 3. If you or your partner have traveled to [place] since April 19, 2016; where in [place] did you travel? No- Denies Electronically Signed By: TONYA العلي LPN On: 11/10/2016 11:40 AM Source: [facility] POWERCHART Document Id: [id number] ULAR MANAGER documented in this encounter Miscellaneous Notes Miscellaneous - Cassie Melissa M.D. - 11/11/2016 10:17 AM CST Ambulatory Patient Summary [address] [id number] Visit Information Name: ALAN, NANCYNAILA JOHNSON [facility] Number: [id number] Current Date: 11/11/2016 10:17:24 Physicians Attending Provider: CASSIE MELISSA MD Primary [...] Electronically Signed By: CASSIE MELISSA MD Signed On:11-NOV-2016 10:17:21 Your Allergies [...] Appointments Date Time Location Provider 11/17/2016 14:30 MERE VIDEO POKER FLOORMAN Cassie Melissa MD 11/24/2016 14:30 FBANA VIDEO POKER FLOORMAN Cassie Melissa MD Attention: Contact your local [...] you dont have one. Go to [email or web address] and click on Create Your Account. Then, follow the directions to complete the online form. Youll be asked for your [facility] number which you can find at the top of this document. Your Goals/Additional instructions: Source: [facility] POWERCHART Document Id: [id number] ULAR MANAGER Miscellaneous - Cassie Melissa M.D. - 11/11/2016 10:17 AM CST Ambulatory Discharge Medication List [address] [id number] Visit Information Name: NANCY PHILLIPS [facility] Number: [id number] Current Date: 11/11/2016 10:17:23 Attending Provider: CASSIE MELISSA MD Primary Care [...] Electronically Signed By: CASSIE MELISSA MD Signed On:11-NOV-2016 10:17:21 Additional Information: Source: [facility] POWERCHART Document Id: [id number] ULAR MANAGER Miscellaneous - Tonya العلي, L.P.N. - 11/10/2016 11:29 AM CST Adult Auto Body Man Intake/History Adult Auto Body Man Intake/History Entered On: 11/10/2016 11:39 VASCULAR MANAGER Performed On: 11/10/2016 11:29 VASCULAR MANAGER by TONYA العلي DISTILLERY MILLER HELPER Intake Chief Complaint : OBFU 35 + [...] : 47.07 kg/m2 TONYA العلي LPN - 11/10/2016 11:29 VASCULAR MANAGER General Info Languages : Arabic Is Patient Female and 13-50 no hysterectomy : Yes Status : Confirmed positive Are you ? : No TONYA العلي LPN - 11/10/2016 11:29 VASCULAR MANAGER Subjective Pain Symptoms : No TONYA العلي LPN - 11/10/2016 11:29 VASCULAR MANAGER Dependent Habits Exposure to Tobacco Smoke : Other: never Smoking Status : Never smoker Tobacco 2A : No Tobacco Use/Currently Using : No Tobacco Use/Last 30 Days : No Tobacco Use/Last 12 months : No TONYA العلي LPN - 11/10/2016 11:29 VASCULAR MANAGER Caffeine Use Grid Caffeine Use : Current Type : Soft drinks Frequency : Daily Amount : regular 1-2 cans daily TONYA العلي LPN - 11/10/2016 11:29 VASCULAR MANAGER Source: [employer] Document Id: [id number] VASCULAR MANAGER!35 ULAR MANAGER documented in this encounter Plan of Treatment Upcoming Encounters Date Type Specialty Care Team Description 10/19/2022 Procedure visit Neurology Marina Winter M.D., M.P.H. [address] [phone] (Wo rk) Scheduled Procedures Name Priority Associated Diagnoses Date/Time LIFT THIGH Excessive And Redundant Skin And Subcutaneous Tissue documented as of this encounter Visit Diagnoses Not on filedocumented in this encounter Additional Health Concerns Assessment Noted Time PHQ-9 Depression Total Score: 13 06/14/2015 3:56 PM CD T documented as of this encounter
--- OUTSIDE RECORDS SUMMARY | 2022-09-05 06:12 | XMS_ITS | Encounter Summary ---
:1985 Author Organization [facility] Address [address] [place] [address] Care Team Providers Name Role Phone Unavailable Primary Care Provider Unavailable Encounter Details Date Type Department Care Team Description 09/21/2016 Hospital Encounter HX [facility] Nahun Tejeda M.D. [address] [place], [place] [phone] (Wo rk) Social History [...] How often do you attend alevism or mandaen Never 07/04/2019 services? 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 [address] [phone] (Wo rk) Scheduled Procedures Name Priority Associated Diagnoses Date/Time LIFT THIGH Excessive And Redundant Skin And Subcutaneous Tissue documented as of this encounter Procedures Procedure Name Priority Date/Time Associated Comments Diagnosis GLUCOSE, GESTATIONAL Routine 09/21/2016 9:42 AM R esults for this 1HR, S GEOGRAPHIC ANALYST procedure are i n the results section. HEMOGLOBIN, B Routine 09/21/2016 9:42 AM Results for this GEOGRAPHIC ANALYST procedure are i n the results section. documented in this encounter Results (ABNORMAL) Hemoglobin (09/21/2016 9:42 AM GEOGRAPHIC ANALYST) P athologist Signature Hemoglobin 11.7 (L) 12.0 - 15.5 POWERCHART GDL Specimen (Source) Anatomical Collection Method Collection Time Re ceived Time Location / / Volume Laterality Blood 09/21/2016 9:42 AM GEOGRAPHIC ANALYST Nahun Tejeda M.D. LAB BLOOD ADD-ON Performing Organization Address City/State/ZIP Code Phon e Number POWERCHART (ABNORMAL) Glucose, Gestational 1HR (09/21/2016 9:42 AM GEOGRAPHIC ANALYST) P athologist Signature HXGlucose 1 Hr 162 (H) 70 - 139 POWERCHART OB MGDL Specimen (Source) Anatomical Collection Method Collection Time Re ceived Time Location / / Volume Laterality Blood 09/21/2016 9:42 AM GEOGRAPHIC ANALYST Nahun Tejeda M.D. LAB BLOOD ADD-ON Performing Organization Address City/State/ZIP Code Phon e Number POWERCHART documented in this encounter Visit Diagnoses Not on filedocumented in this encounter Additional Health Concerns Assessment Noted Time PHQ-9 Depression Total Score: 13 06/14/2015 3:56 PM CD T documented as of this encounter
--- OUTSIDE RECORDS SUMMARY | 2022-09-05 06:12 | XMS_ITS | Encounter Summary ---
:1985 Author Organization [facility] Address [address] [place] [address] Care Team Providers Name Role Phone Unavailable Primary Care Provider Unavailable Encounter Details Date Type Department Care Team Description 04/10/2016 Hospital Encounter HX [facility] Nelson Schneider P.A.-C. [address] [place] [phone] (Wo rk) Social History Tobacco [...] How often do you attend jain or druze Never 07/04/2019 services? 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 She does utilize [facility] services. DIETARY SUPPLEMENTS: vitamins. ROUTINE PHYSICAL ACTIVITY: ADLs. LIMITATIONS: None. COMORBIDITIES: Per EMR. MEDICATIONS Reviewed EMR dated 04/10/2016. No changes. 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 MARITAL STATUS: She is . She [...] Healthy Eating and Managing Symptoms for - [facility] Reference. 2. Gestational Diabetes Basics from the [facility], it is a book. 3. My Food Plan for Gestational Diabetes from the [facility]. ADMINISTRATIVE BILLING Total counseling time spent today with patient is 60 minutes. Ansley Schneider R.D., [place]./pepe Electronically Signed By: ANSLEY SCHNEIDER On: 04/26/2016 10:31 AM Source: [facility] MHSDOLBEYNONRADSYS Document Id: [id number] documented in this encounter Miscellaneous Notes Miscellaneous - Ansley Schneider - 04/10/2016 8:49 AM CDT Ambulatory Patient Summary [address] [id number] Visit Information Name: ALANNANCY BAKER [facility] Number: [id number] Current Date: 04/10/2016 08:49:32 Physicians Attending Provider: ANSLEY SCHNEIDER Primary Care Provider: MAILE ZARATE MD ALANJOSEPHINENANCY [...] Date Time Location Provider 05/11/2016 10:30 [facility] FIRE CODE INSPECTOR Ileana RED, Nahun Regalado Attention: Contact your [...] dont have one. Go to [email or web address] and click on Create Your Account. Then, follow the directions to complete the online form. Youll be asked for your [facility] number which you can find at the top of this document. Your Goals/Additional instructions: Source: [facility] POWERCHART Document Id: [id number] Miscellaneous - Ansley Schneider - 04/10/2016 8:49 AM CDT Ambulatory Discharge Medication List [facility] [address] [place], [place] [phone] Visit Information Name: NANCY PHILLIPS [facility] Number: [id number] Visit Date: 04/10/2016 08:49:31 Attending [...] Additional Information: Source: [facility] POWERCHART Document Id: [id number] Miscellaneous - Ansley Schneider - 04/10/2016 8:44 AM CDT Adult Application Support Consultant Intake/History Adult Application Support Consultant Intake/History Entered On: 04/10/2016 8:47 CDT Performed [...] Information Given By : Patient Languages : Israeli Is Patient Female and 13-50 no hysterectomy [...] ANSLEY SCHNEIDER - 04/10/2016 8:44 CDT Source: [facility] [employer] Document Id: [id number]!27 documented in this encounter Plan of Treatment Upcoming Encounters Date Type Specialty Care Team Description 10/19/2022 Procedure visit Neurology Marina Winter M.D., M.P.H. [address] [place] [phone] (Wo rk) Scheduled Procedures Name Priority Associated Diagnoses Date/Time LIFT THIGH Excessive And Redundant Skin And Subcutaneous Tissue documented as of this encounter Visit Diagnoses Not on filedocumented in this encounter Additional Health Concerns Assessment Noted Time PHQ-9 Depression Total Score: 13 06/14/2015 3:56 PM CD T documented as of this encounter
--- OUTSIDE RECORDS SUMMARY | 2022-09-05 06:12 | XMS_ITS | Encounter Summary ---
:1985 Author Organization [facility] Address [address] [place] [address] Care Team Providers Name Role Phone Unavailable Primary Care Provider Unavailable Encounter Details Date Type Department Care Team Description 10/13/2016 Hospital Encounter HX [facility] Ranjit Lee M.D. [address] [place], [place] [phone] [...] How often do you attend cheondoism or zoroastrianism Never 07/04/2019 services? Do you [...] at Date Recorded Female 10/16/2018 10:53 AM FLUORESCENT LAMP REPLACER documented as of this encounter Last Filed Vital Signs Vital Sign Reading Time Taken Comments Blood Pressure 118/64 10/13/2016 10:15 AM FLUORESCENT LAMP REPLACER Pulse - - Temperature - - Respiratory Rate - - Oxygen Saturation - - Inhaled Oxygen Concentration - - Weight 127 kg (280 lb 10.3 oz) 10/13/2016 10:15 AM FLUORESCENT LAMP REPLACER Height 164 cm (5' 4.57) 10/13/2016 10:15 AM FLUORESCENT LAMP REPLACER Body Mass Index 47.33 10/13/2016 10:15 AM FLUORESCENT LAMP REPLACER documented in this encounter H&P Notes Cassie Melissa M.D. - 10/13/2016 9:47 AM CST [id number] CHIEF COMPLAINT/REASON FOR VISIT Transfer of care [...] procedure history updated in the EMR today. 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 FAMILY HISTORY Please see the family [...] lesions. NEUROLOGIC: Alert and oriented x3. IMPRESSION/REPORT/PLAN Bnznmh-oydy-ala 5, para 3-0-1-3 female at 31+3 weeks [...] Upon my review of the visits in [place], her fundal height was measuring appropriate for [...] MELISSA MD On: 11/02/2016 03:06 PM Source: [facility] [id number] Document Id: [id number] RESCENT LAMP REPLACER documented in this encounter Procedure Notes Tonya العلي L.P.N. - 10/13/2016 12:46 PM CST Urine Dipstick Urine Dipstick Entered On: 10/13/2016 12:47 FLUORESCENT LAMP REPLACER Performed On: 10/13/2016 12:46 FLUORESCENT LAMP REPLACER by TONYA العلي LPN Urine Dipstick UA [...] 1+ Small UA Glucose POC : Negative OTNYA العلي LPN - 10/13/2016 12:46 FLUORESCENT LAMP REPLACER Source: WhenSoon Document Id: [id number] FLUORESCENT LAMP REPLACER!14 RESCENT LAMP REPLACER Tonya العلي L.P.NRodrigo - 10/13/2016 11:06 AM CST Urine Dipstick Urine Dipstick Entered On: 10/13/2016 11:06 FLUORESCENT LAMP REPLACER Performed On: 10/13/2016 11:06 FLUORESCENT LAMP REPLACER by TONYA العلي LPN Urine Dipstick UA Color POC : Yellow UA Appear POC : Clear UA Protein POC : Trace UA Glucose POC : Negative TONYA العلي LPN - 10/13/2016 11:06 FLUORESCENT LAMP REPLACER Source: WhenSoon Document Id: [id number] FLUORESCENT LAMP REPLACER!6 RESCENT LAMP REPLACER documented in this encounter Nursing Notes Tonya العلي L.P.N. - 10/13/2016 10:18 AM CST Zika At this time, there are 3 screening questions: 1. Have you or your partner traveled outside of [place] up to 6 months prior to this ? No 2. If so, where specifically have you or your partner traveled? Country, state? NA 3. If you or your partner have traveled to [place] since April 19, 2016; where in [place] did you travel? No Electronically Signed By: TONYA العلي LPN On: 10/13/2016 10:19 AM Source: [facility] Art of DefenceCHART Document Id: [id number] RESCENT LAMP REPLACER documented in this encounter Miscellaneous Notes Miscellaneous - Cassie Melissa M.D. - 10/30/2016 11:41 AM CST Ambulatory Discharge Medication List [address] [id number] Visit Information Name: NANCY PHILLIPS [facility] Number: [id number] Current Date: 10/30/2016 11:41:49 Attending [...] MD Signed On:30-OCT-2016 11:41:47 Additional Information: Source: [facility] POWERCHART Document Id: [id number] RESCENT LAMP REPLACER Miscellaneous - Cassie Melissa M.D. - 10/30/2016 11:41 AM CST Ambulatory Patient Summary [address] [id number] Visit Information Name: NANCY PHILLIPS [facility] Number: [id number] Current Date: 10/30/2016 11:41:50 Physicians [...] Date Time Location Provider 11/10/2016 11:30 [facility] MUSIC DEPARTMENT CHAIR Cassie Melissa MD 11/17/2016 14:30 [facility] MUSIC DEPARTMENT CHAIR Cassie Melissa MD 11/24/2016 14:30 [facility] MUSIC DEPARTMENT CHAIR Cassie Melissa MD Attention: Contact your local [...] if you dont have one. Go to [email or web address] and click on Create Your Account. Then, follow the directions to complete the online form. Youll be asked for your [facility] number which you can find at the top of this document. Your Goals/Additional instructions: Source: [facility] Zeuss Document Id: [id number] RESCENT LAMP REPLACER Miscellaneous - Cassie Melissa M.D. - 10/16/2016 2:35 PM CST Results Notification Document Contains Addenda Addendum by TONYA العلي LPN on October 17, 2016 09:11:15 FLUORESCENT LAMP REPLACER Added to chart, patient has been notified. From: CASSIE MELISSA MD To: RADHA HAMMOND RN; Sent: 10/16/2016 14:35:47 FLUORESCENT LAMP REPLACER ! Show up: 10/16/2016 14:35:47 FLUORESCENT LAMP REPLACER Subject: Results Notification Actions: Note to Nurse Reminder Comments: Please add result to chart. Please let patient know that the urine culture did not show a UTI. Results: Date Result Type Ind Result Name MBO Review Culture Urine Source: [facility] [employer]CHART Document Id: [id number] Cassie Salguero M.D. - 10/13/2016 5:57 PM CST Results Notification Document Contains Addenda Addendum by TONYA العلي LPN on October 17, 2016 09:08:05 FLUORESCENT LAMP REPLACER added to chart. From: CASSIE MELISSA MD To: RADHA HAMMOND RN; Sent: 10/13/2016 17:57:41 FLUORESCENT LAMP REPLACER ! Show up: 10/13/2016 17:57:41 FLUORESCENT LAMP REPLACER Subject: Results Notification Actions: Note to Nurse [...] ALT 7 unit/L (7 - 45) Source: [facility] POWERCHART Document Id: [id number] Electronically signed by Maria R, [facility] Animal Husbandry Worker [id number] at 04/01/2017 7:16 AM CDT Cassie Salguero M.D. - 10/13/2016 3:45 PM CST Results Notification Document Contains Addenda Addendum by TONYA العلي LPN on October 17, 2016 09:07:22 FLUORESCENT LAMP REPLACER added to chart. From: CASSIE MELISSA MD To: RADHA HAMMOND RN; Sent: 10/13/2016 15:45:37 FLUORESCENT LAMP REPLACER ! Show up: 10/13/2016 15:45:37 FLUORESCENT LAMP REPLACER Subject: Results Notification Actions: Note to Nurse [...] Platelet 250 x10(9)/L (150 - 450) Source: [facility] POWERCHART Document Id: [id number] Electronically signed by Conversion, [facility] Animal Husbandry Worker [id number] at 04/01/2017 7:16 AM CDT Miscellaneous - Tonya العلي L.PRodrigoN. - 10/13/2016 3:43 PM CST FB surgery prior auth Document Contains Addenda Addendum by MARK LEONARDO on November 16, 2016 15:45:13 FLUORESCENT LAMP REPLACER From: MARK LEONARDO ([facility] Key Account Director/Prior Authorizations) To: Obstetrics/Gynecology Nurse; Sent: 11/16/2016 15:45:13 FLUORESCENT LAMP REPLACER Subject: RE: FB surgery prior auth No auth needed. From: TONYA العلي LPN ( Obstetrics/Gynecology Nurse) To: [facility] Key Account Director/Prior Authorizations; Sent: 10/13/2016 15:43:03 FLUORESCENT LAMP REPLACER Subject: FB surgery prior auth [facility] Surgery Clinic Checklist Patient Contact Number: [phone] Surgeon: Dr. Melissa Surgical Service: (_) Orthopedics (_) General surgery (_) Ophthalmology (_) Podiatry (_) ENT (_) Urology (X) OB / Gynecology (_) Other Date of Surgery: 12/05/2016 Place of Surgery: [facility] Pre-Admit FIN: Procedure (as written on Consent): Section with Tubal Ligation Right, Left, Bilateral, N/A: Bilateral Diagnosis (reason for surgery): , not first with previous section ICD-10: Z34.90 CPT:17552 Work Comp: (X) No (_) Yes Surgeon [...] Appt Needed: (_) No (_) Yes Source: [facility] POWERCHART Document Id: [id number] Electronically signed by Maria R [facility] Animal Husbandry Worker [id number] at 04/01/2017 7:16 AM CDT Miscellaneous - Tonya العلي LRodrigoP.N. - 10/13/2016 12:47 PM CST *General Message Document Contains Addenda Addendum by TONYA العلي LPN on October 13, 2016 15:52:35 FLUORESCENT LAMP REPLACER Patient notified. Addendum by CASSIE MELISSA MD on October 13, 2016 14:42:22 FLUORESCENT LAMP REPLACER From: CASSIE MELISSA MD To: Obstetrics/Gynecology Nurse; Sent: 10/13/2016 14:42:22 FLUORESCENT LAMP REPLACER Subject: RE: *General Message Please let her know that her Urine test that we did today does not look like she has an infection, but we will send a culture to check and see for sure. From: TONYA العلي LPN ( Obstetrics/Gynecology Nurse) To: CASSIE MELISSA MD; Sent: 10/13/2016 12:47:51 FLUORESCENT LAMP REPLACER Subject: *General Message Please see UA dipstick results and order UCX. Thanks! Source: [facility] POWERCHART Document Id: [id number] Miscellaneous - Tonya العلي L.P.N. - 10/13/2016 11:06 AM CST Valve Lapper Documentation Valve Lapper Documentation Entered On: 10/13/2016 11:06 FLUORESCENT LAMP REPLACER Performed On: 10/13/2016 11:06 FLUORESCENT LAMP REPLACER by TONYA العلي LPN Valve Lapper Documentation Exam/Procedure Performed : Cervical check CD Valve Lapper Present : Yes CD Valve Lapper Name : Susana العلي LPN Present in Room During Exam/Procedure : Friend TONYA العلي LPN - 10/13/2016 11:06 FLUORESCENT LAMP REPLACER Source: [facility] POWERCHART Document Id: [id number] FLUORESCENT LAMP REPLACER!6 RESCENT LAMP REPLACER Miscellaneous - Tonya العلي L.P.N. - 10/13/2016 10:15 AM CST Adult Disability Rater Intake/History Adult Disability Rater Intake/History Entered On: 10/13/2016 10:17 FLUORESCENT LAMP REPLACER Performed On: 10/13/2016 10:15 FLUORESCENT LAMP REPLACER by TONYA العلي LPN Intake Chief Complaint [...] kg/m2 TONYA العلي LPN - 10/13/2016 10:15 FLUORESCENT LAMP REPLACER General Info Languages : Stateless Is Patient Female and 13-50 no hysterectomy : Yes Status : Confirmed positive Are you ? : No TONYA العلي PRADEEP - 10/13/2016 10:15 FLUORESCENT LAMP REPLACER Subjective Pain Symptoms : No TONYA العلي PRADEEP - 10/13/2016 10:15 FLUORESCENT LAMP REPLACER Dependent Habits Exposure to Tobacco Smoke : Other: never Smoking Status : Never smoker Tobacco 2A : No Tobacco Use/Currently Using : No Tobacco Use/Last 30 Days : No Tobacco Use/Last 12 months : No TONYA العلي PRADEEP - 10/13/2016 10:15 FLUORESCENT LAMP REPLACER Caffeine Use Grid Caffeine Use : Current Type : Soft drinks Frequency : Daily Amount : regular 1-2 cans daily ELIANETONYA Marie Nadia FERNÁNDEZ - 10/13/2016 10:15 FLUORESCENT LAMP REPLACER Source: WhenSoon Document Id: [id number] FLUORESCENT LAMP REPLACER!35 RESCENT LAMP REPLACER documented in this encounter Plan of Treatment Upcoming Encounters Date Type Specialty Care Team Description 10/19/2022 Procedure visit Neurology Marina Winter M.D., M.P.H. [address] [place] [phone] (Wo rk) Scheduled Procedures Name Priority Associated Diagnoses Date/Time LIFT THIGH Excessive And Redundant Skin And Subcutaneous Tissue documented as of this encounter Procedures Procedure Name Priority Date/Time Associated Comments Diagnosis BACTERIAL CULTURE, Routine 10/13/2016 5:01 Result s for this AEROBIC, URINE PM FLUORESCENT LAMP REPLACER procedure are in the results section. DIPSTICK, POCT, U Routine 10/13/2016 12:46 Result s for this (NURSING) INTERFACED PM FLUORESCENT LAMP REPLACER procedu re are in the results section. CBC WITHOUT Routine 10/13/2016 11:21 Results for this DIFFERENTIAL, B AM FLUORESCENT LAMP REPLACER procedure ar e in the results section. BUN (BLOOD UREA Routine 10/13/2016 11:21 Results for this NITROGEN), S/P AM FLUORESCENT LAMP REPLACER procedure are in the results section. ALANINE AMINOTRANSFERASE Routine 10/13/2016 11:21 Results for this (ALT), S/P AM FLUORESCENT LAMP REPLACER procedure are i n the results section. ASPARTATE Routine 10/13/2016 11:21 Results for this AMINOTRANSFERASE (AST), AM FLUORESCENT LAMP REPLACER proc edure are in S/P the results section. CREATININE WITH EGFR, Routine 10/13/2016 11:21 Re sults for this S/P AM FLUORESCENT LAMP REPLACER procedure are i n the results section. DIPSTICK, POCT, U Routine 10/13/2016 11:06 Result s for this (NURSING) INTERFACED AM FLUORESCENT LAMP REPLACER procedu re are in the results section. documented in this encounter Results Bacterial Culture, Aerobic, Urine (10/13/2016 5:01 PM FLUORESCENT LAMP REPLACER) [facility] [employer] Method Time Signature Bacterial POWERCHART Culture, Aerobic, Urine HXFinky Mixed carmelo. No POWERCHART further studies unless notified. [facility] POWERCHART Microbiology laboratory [phone]. Specimen (Source) Anatomical Collection Method Collection Time Re ceived Time Location / / Volume Laterality Urine, First 10/13/2016 5:01 PM Voided FLUORESCENT LAMP REPLACER Cassie Melissa M.D. LAB MICROBIOLOGY - GENERAL O RDERABLES Performing Organization Address City/State/ZIP Code Phon e Number POWERCHART Dipstick, POCT, Urine (nursing) (10/13/2016 12:46 PM FLUORESCENT LAMP REPLACER) [facility] [employer] Method Time Signature Color [place] POWERCHART Appearance Clear POWERCHART Leukocytes, Negative POWERCHART POCT, U Nitrites, Negative POWERCHART POCT, U Urobilinogen, 0.2 mg/dl POWERCHART POCT, Urine Protein, POCT, 1+ (30 POWERCHART U mg/dl) pH, POCT, 5.5 5.0 - 9.0 POWERCHART Urine Blood, POCT, U Negativ POWERCHART Specific 1.030 1.000 - POWERCHART [place], POCT, 1.030 U Ketone, POCT, Small (15 POWERCHART U mg/dl) Bilirubin, 1+ Small POWERCHART POCT, U Glucose, POCT, Negative POWERCHART U Specimen (Source) Anatomical Collection Method Collection Time Re ceived Time Location / / Volume Laterality 10/13/2016 12:46 PM FLUORESCENT LAMP REPLACER Cassie Melissa M.D. LAB POCT ORDERABLES - DEVICE Performing Organization Address [facility]/ZIP Code Phon e Number POWERCHART (ABNORMAL) CBC without Differential (10/13/2016 11:21 AM FLUORESCENT LAMP REPLACER) Analysis Performed At [facility] Time Signature Leukocytes 10.7 (H) 3.4 - 10.5 POWERCHART X109L Erythrocytes 4.34 3.90 - POWERCHART 5.03 [id number] Hemoglobin 12.7 12.0 - POWERCHART 15.5 GDL Hematocrit 37.3 34.9 - POWERCHART 44.5 MCV 85.9 82.0 - POWERCHART 98.0 FL HX RDW 14.2 11.9 - POWERCHART 15.5 Platelet Count 250 150 - 450 POWERCHART X109L Specimen (Source) Anatomical Collection Method Collection Time Re ceived Time Location / / Volume Laterality Blood 10/13/2016 11:21 AM FLUORESCENT LAMP REPLACER Cassie Melissa M.D. LAB BLOOD ADD-ON Performing Organization Address City/State/ZIP Code Phon e Number POWERCHART (ABNORMAL) Creatinine with eGFR (10/13/2016 11:21 AM FLUORESCENT LAMP REPLACER) Analysis Performed At [facility] Time Signature Creatinine 0.49 (L) 0.60 - POWERCHART 1.10 MGDL HXeGFR (MDRD) >60 >=60 POWERCHART [id number] eGFR >60 >=60 POWERCHART Black/ [id number] [place] Specimen (Source) Anatomical Collection Method Collection Time Re ceived Time Location / / Volume Laterality Blood 10/13/2016 11:21 AM FLUORESCENT LAMP REPLACER Cassie Melissa M.D. LAB BLOOD ADD-ON Performing Organization Address City/State/ZIP Code Phon e Number POWERCHART BUN (Blood Urea Nitrogen) (10/13/2016 11:21 AM FLUORESCENT LAMP REPLACER) P athologist Signature BUN (Blood Urea 6 6 - 21 MGDL POWERCHART Nitrogen), S Specimen (Source) Anatomical Collection Method Collection Time Re ceived Time Location / / Volume Laterality Blood 10/13/2016 11:21 AM FLUORESCENT LAMP REPLACER Cassie Melissa M.D. LAB BLOOD ADD-ON Performing Organization Address City/State/ZIP Code Phon e Number POWERCHART ALT (Alanine Aminotransferase) (10/13/2016 11:21 AM FLUORESCENT LAMP REPLACER) P athologist Signature Alanine 7 7 - 45 POWERCHART Amniotransferas UNITL e, LD Specimen (Source) Anatomical Collection Method Collection Time Re ceived Time Location / / Volume Laterality Blood 10/13/2016 11:21 AM FLUORESCENT LAMP REPLACER Cassie Melissa M.D. LAB BLOOD ADD-ON Performing Organization Address City/[facility]/ZIP Code Phon e Number POWERCHART AST (Aspartate Aminotransferase) (10/13/2016 11:21 AM FLUORESCENT LAMP REPLACER) Patholo gist Method Time Signature Aspartate 14 8 - 43 POWERCHART Aminotransferase UNITL (AST), S Specimen (Source) Anatomical Collection Method Collection Time Re ceived Time Location / / Volume Laterality Blood 10/13/2016 11:21 AM FLUORESCENT LAMP REPLACER Cassie Melissa M.D. LAB BLOOD ADD-ON Performing Organization Address City/[facility] Phon e Number POWERCHART Dipstick, POCT, Urine (nursing) (10/13/2016 11:06 AM FLUORESCENT LAMP REPLACER) Analysis Performed At Patho logist Time Signature Color Yellow POWERCHART Appearance Clear POWERCHART Protein, POCT, Trace POWERCHART U Glucose, POCT, Negative POWERCHART U Specimen (Source) Anatomical Collection Method Collection Time Re ceived Time Location / / Volume Laterality 10/13/2016 11:06 AM FLUORESCENT LAMP REPLACER Cassie Melissa M.D. LAB POCT ORDERABLES - DEVICE Performing Organization Address City/[facility] Phon e Number POWERCHART documented in this encounter Visit Diagnoses Not on filedocumented in this encounter Additional Health Concerns Assessment Noted Time PHQ-9 Depression Total Score: 13 06/14/2015 3:56 PM CD T documented as of this encounter
--- OUTSIDE RECORDS SUMMARY | 2022-09-05 06:12 | XMS_ITS | Encounter Summary ---
:1985 Author Organization [facility] Address [address] [place] [address] Care Team Providers Name Role Phone Unavailable [...] How often do you attend yazidi or scientology Never 07/04/2019 services? 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 - 11/17/2016 1:59 PM CST [id number] CHIEF COMPLAINT/REASON FOR VISIT OB. HISTORY OF [...] today. She states sheplans to have her by section and not vaginally. She reports [...] to discuss this further with her primary environmental planning engineer. I discussed with patient theneed to admit [...] as needed. 13. I spent 30 minutes [id number] time with the patient with 22 minutes spent in counseling and coordinating care. Kit Hathaway M.D./pepe Electronically Signed By: KIT HATHAWAY MD On: 11/20/2016 08:12 AM Source: [facility] MHSDOLBEYNONRADSYS Document Id: [id number] D ENGINEER documented in this encounter Procedure Notes Tonya العلي L.PRodrigoNRodrigo - 11/17/2016 2:41 PM CST Urine Dipstick Urine Dipstick Entered On: 11/17/2016 14:49 FIELD ENGINEER Performed On: 11/17/2016 14:41 FIELD ENGINEER by TONYA العلي LPN Urine Dipstick UA Color POC : Yellow UA Appear POC : Clear UA Protein POC : Trace UA Glucose POC : 100 mg/dl TONYA العلي LPN - 11/17/2016 14:41 FIELD ENGINEER Source: [facility] POWERCHART Document Id: [id number] FIELD ENGINEER!6 D ENGINEER documented in this encounter Miscellaneous Notes Miscellaneous - Kit Hathaway M.D. - 11/17/2016 3:37 PM CST Ambulatory Patient Summary [address] [id number] Visit Information Name: NANCY PHILLIPS [facility] Number: [id number] Current Date: 11/17/2016 15:37:48 Physicians Attending Provider: KIT HATHAWAY MD Primary Care Provider: MAILE ZARATE MD [...] Date Time Location Provider 11/20/2016 10:15 [facility]BANA WEB SUPPORT ENGINEER Cassie Booth MD 11/24/2016 14:30 [facility] WEB SUPPORT ENGINEER Cassie Booth MD 12/27/2016 09:45 [facility] Dinesh RED, Nicki Zuniga Attention: Contact [...] if you dont have one. Go to [email or web address] and click on Create Your Account. Then, follow the directions to complete the online form. Youll be asked for your [facility] number which you can find at the top of this document. Your Goals/Additional instructions: Source: [facility] POWERCHART Document Id: [id number] D ENGINEER Miscellaneous - Kit Hathaway M.D. - 11/17/2016 3:37 PM CST Ambulatory Discharge Medication List [address] [id number] Visit Information Name: NANCY PHILLIPS [facility] Number: [id number] Current Date: 11/17/2016 15:37:47 Attending Provider: KIT HATHAWAY MD Primary Care Provider: MAILE ZARATE MD [...] MD Signed On:17-NOV-2016 15:37:42 Additional Information: Source: [facility] Natero Document Id: [id number] D ENGINEER Miscellaneous - Tonya العلي LRodrigoP.N. - 11/17/2016 2:35 PM CST Linseed Oil Boiler Documentation Linseed Oil Boiler Documentation Entered On: 11/17/2016 14:36 FIELD ENGINEER Performed On: 11/17/2016 14:35 FIELD ENGINEER by TONYA العلي LPN Linseed Oil Boiler Documentation Exam/Procedure Performed : Cervical check CD Linseed Oil Boiler Present : Yes CD Linseed Oil Boiler Name : Susana العلي LPN Present in Room During Exam/Procedure : Other: Cousin TONYA العلي LPN - 11/17/2016 14:35 FIELD ENGINEER Source: [facility] [employer]ater[employer] Document Id: [id number] FIELD ENGINEER!6 D ENGINEER Erickacellaneous - Tonya العلي L.P.N. - 11/17/2016 2:08 PM CST Adult Consumer Safety Officer Intake/History Adult Consumer Safety Officer Intake/History Entered On: 11/17/2016 14:10 FIELD ENGINEER Performed On: 11/17/2016 14:08 FIELD ENGINEER by TONYA العلي LPN Intake Chief Complaint [...] 2.4 Body Mass Index : 46.92 kg/m2 TONYA العلي LPN - 11/17/2016 14:08 FIELD ENGINEER General Info Languages : Maori Is Patient Female and 13-50 no hysterectomy : Yes Status : Confirmed positive Are you ? : No TONYA العلي LPN - 11/17/2016 14:08 FIELD ENGINEER Subjective Pain Symptoms : No TONYA العلي LPN - 11/17/2016 14:08 FIELD ENGINEER Dependent Habits Exposure to Tobacco Smoke : Other: never Smoking Status : Never smoker Tobacco 2A : No Tobacco Use/Currently Using : No Tobacco Use/Last 30 Days : No Tobacco Use/Last 12 months : No TONYA العلي LPN - 11/17/2016 14:08 FIELD ENGINEER Caffeine Use Grid Caffeine Use : Current Type : Soft drinks Frequency : Daily Amount : regular 1-2 cans daily TONYA العلي LPN - 11/17/2016 14:08 FIELD ENGINEER Source: [employer] Document Id: [id number] FIELD ENGINEER!35 D ENGINEER documented in this encounter Plan of Treatment Upcoming Encounters Date Type Specialty Care Team Description 10/19/2022 Procedure visit Neurology Marina Winter M.D., M.P.H. [address] [phone] (Wo rk) Scheduled Procedures Name Priority Associated Diagnoses Date/Time LIFT THIGH Excessive And Redundant Skin And Subcutaneous Tissue documented as of this encounter Procedures Procedure Name Priority Date/Time Associated Comments Diagnosis DIPSTICK, POCT, U Routine 11/17/2016 2:41 PM Resu lts for this (NURSING) INTERFACED FIELD ENGINEER procedu re are in the results section. documented in this encounter Results Dipstick, POCT, Urine (nursing) (11/17/2016 2:41 PM FIELD ENGINEER) [facility] gist Method Time Signature Color Yellow POWERCHART Appearance Clear POWERCHART Protein, POCT, Trace POWERCHART U Glucose, POCT, 100 mg/dl POWERCHART U Specimen (Source) Anatomical Collection Method Collection Time Re ceived Time Location / / Volume Laterality 11/17/2016 2:41 PM FIELD ENGINEER Kit Hathaway M.D. LAB POCT ORDERABLES - DEVICE Performing Organization Address City/State/ZIP Code Phon e Number POWERCHART documented in this encounter Visit Diagnoses Not on filedocumented in this encounter Additional Health Concerns Assessment Noted Time PHQ-9 Depression Total Score: 13 06/14/2015 3:56 PM CD T documented as of this encounter
--- OUTSIDE RECORDS SUMMARY | 2022-09-05 06:12 | XMS_ITS | Encounter Summary ---
:1985 Author Organization [facility] Address [address] [place] [address] Care Team Providers Name Role Phone Unavailable Primary Care Provider Unavailable Encounter Details Date Type Department Care Team Description 07/27/2016 Hospital Encounter HX [facility] Promise Rouse M.D. [address] [place], [place] [phone] (Wo rk) Social History [...] How often do you attend adventist or confucianism Never 07/04/2019 services? 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 - 07/27/2016 3:51 PM [...] TEJEDA MD On: 07/27/2016 03:52 PM Source: [facility] POWERCHART Document Id: [id number] documented in this encounter Nursing Notes Laverne Conti, L.P.N. - 07/27/2016 1:51 PM CDT Zika screening questions 1.) Have you or your partner traveled outside of [place] up to 6 months prior to this ? _Yes _xNo 2.) If so, where specifically have you or your partner traveled (Country, State)?_ 3.) If you or your partner have traveled to [place] since April_yes _no Where in [place] did you travel? _ Electronically Signed By: LAVERNE CONTI LPN On: 12/01/2016 04:00 PM Source: [facility] POWERCHART Document Id: [id number] PUMP OPERATOR documented in this encounter Miscellaneous Notes Miscellaneous - Shar Tejeda M.D. - 07/27/2016 5:04 PM CDT Ambulatory Patient Summary [facility] [address] [place], [place] [id number] Visit Information Name: NANCY PHILLIPSE [facility] Number: [id number] Current Date: 07/27/2016 17:04:14 Physicians Attending Provider: SHAR TEJEDA MD Primary Care Provider: MAILE ZARATE MD ALAN NANCY JOHNSON has been given [...] Date Time Location Provider 08/24/2016 13:30 [facility] LAUNDRY OPERATOR WASH ROOM Shar Tejeda MD 08/25/2016 13:15 [facility] LAUNDRY OPERATOR WASH ROOM Ileana RED, Shar Regalado 09/21/2016 08:40 OWOC Lab [facility] Lab 09/21/2016 09:15 [facility] LAUNDRY OPERATOR WASH ROOM Shar Tejeda MD 10/05/2016 13:15 [facility] LAUNDRY OPERATOR WASH ROOM Shar Tejeda MD 10/19/2016 13:15 [facility]OC LAUNDRY OPERATOR WASH ROOM Ileana RED, Shar Regalado 11/02/2016 13:15 [facility]OC LAUNDRY OPERATOR WASH ROOM Shar Tejeda MD 11/16/2016 13:15 OWOC LAUNDRY OPERATOR WASH ROOM Shar Tejeda MD 11/23/2016 13:15 [facility] LAUNDRY OPERATOR WASH ROOM Shar Tejeda MD 12/15/2016 11:15 [facility] LAUNDRY OPERATOR WASH ROOM Ayanna Xie NP 01/12/2017 13:15 [facility] LAUNDRY OPERATOR WASH ROOM Shar Tejeda MD Attention: Contact your local [...] if you dont have one. Go to [email or web address] and click on Create Your Account. Then, follow the directions to complete the online form. Youll be asked for your [facility] number which you can find at the top of this document. Your Goals/Additional instructions: Source: [facility] POWERCHART Document Id: [id number] Bunny - Shar Tejeda M.D. - 07/27/2016 5:04 PM CDT Ambulatory Discharge Medication List [facility] [address] [place] [id number] Visit Information Name: NANCY PHILLIPS [facility] Number: [id number] Visit Date: 07/27/2016 17:04:14 Attending [...] MD Signed On:27-JUL-2016 17:04:12 Additional Information: Source: [facility] POWERCHART Document Id: [id number] Bunny - Laverne Conti, L.P.N. - 07/27/2016 1:46 PM CDT Adult Commodities Clerk Intake/History Adult Commodities Clerk Intake/History Entered On: 07/27/2016 13:50 CDT Performed On: 07/27/2016 13:46 CDT by LAVERNE CONTI RENEWABLE ENERGY TECHNICIAN Intake Chief Complaint : 20 2/7 wk [...] Mass Index : 49.9 kg/m2 LAVERNE CONTI RENEWABLE ENERGY TECHNICIAN - 07/27/2016 13:46 CDT General Info Languages : North Korean Is Patient Female and 13-50 no hysterectomy : No LAVERNE CONTI [facility] - 07/27/2016 13:46 CDT Subjective Pain Symptoms : LAVERNE Hloden [facility] - 07/27/2016 13:46 CDT Dependent Habits Exposure to Tobacco Smoke : Other: never Smoking Status : Never smoker Tobacco 2A : No Tobacco Use/Currently Using : No Tobacco Use/Last 30 Days : No Tobacco Use/Last 12 months : No LAVERNE CONTI RENEWABLE ENERGY TECHNICIAN - 07/27/2016 13:46 CDT Caffeine Use Grid Caffeine Use : Current Type : Soft drinks Frequency : Daily Amount : regular 1-2 cans daily LAVERNE CONTI [facility] - 07/27/2016 13:46 CDT Source: [employer] Document Id: [id number] CDT!31 documented in this encounter Plan of Treatment Upcoming Encounters Date Type Specialty Care Team Description 10/19/2022 Procedure visit Neurology Marina Winter M.D., M.P.H. [address] [phone] (Wo rk) Scheduled Procedures Name Priority Associated Diagnoses Date/Time LIFT THIGH Excessive And Redundant Skin And Subcutaneous Tissue documented as of this encounter Visit Diagnoses Not on filedocumented in this encounter Additional Health Concerns Assessment Noted Time PHQ-9 Depression Total Score: 13 06/14/2015 3:56 PM CD T documented as of this encounter
--- OUTSIDE RECORDS SUMMARY | 2022-09-05 06:12 | XMS_ITS | Encounter Summary ---
:1985 Author Organization [facility] Address [address] [place] [address] Care Team Providers Name Role Phone Unavailable Primary Care Provider Unavailable Encounter Details Date Type Department Care Team Description 08/24/2016 Hospital Encounter HX [facility] Promise Rouse M.D. [address] [place], [place] [phone] (Wo rk) Social History [...] How often do you attend confucianist or jain Never 07/04/2019 services? 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 - 08/24/2016 1:55 PM CDT Ambulatory Patient Summary [facility] [address] [place] [id number] Visit Information Name: NANCY PHILLIPS [facility] Number: [id number] Current Date: 08/24/2016 13:55:01 Physicians [...] OWOC Lab OWOC Lab 09/21/2016 09:15 OWOC TILTING HEAD BAND SAWYER Shar Tejeda MD 10/05/2016 13:15 OWOC TILTING HEAD BAND SAWYER Shar Tejeda MD 10/19/2016 13:15 [facility]OC TILTING HEAD BAND SAWYER Shar Tejeda MD 11/02/2016 13:15 OWOC TILTING HEAD BAND SAWYER Shar Tejeda MD 11/16/2016 13:15 OWOC TILTING HEAD BAND SAWYER Shar Tejeda MD 11/23/2016 13:15 [facility]OC TILTING HEAD BAND SAWYER Shar Tejeda MD 12/15/2016 11:15 [facility]OC TILTING HEAD BAND SAWYER Ayanna Xie NP 01/12/2017 13:15 [facility]OC TILTING HEAD BAND SAWYER Shar Tejeda MD Attention: Contact your local [...] online form. Youll be asked for your [facility] number which you can find at the top of this document. Your Goals/Additional instructions: Source: [facility] POWERCHART Document Id: [id number] Miscellaneous - Shar Tejeda M.D. - 08/24/2016 1:55 PM CDT Ambulatory Discharge Medication List [facility] [address] [place], [place] [id number] Visit Information Name: NANCY PHILLIPS [facility] Number: [id number] Current Date: 08/24/2016 13:55:01 Attending [...] MD Signed On:24-AUG-2016 13:54:56 Additional Information: Source: [facility] POWERCHART Document Id: [id number] Miscellaneous - Chinyere Espinal L.P.N. - 08/24/2016 1:36 PM CDT Adult Recovery Assistant Intake/History Adult Recovery Assistant Intake/History Entered On: 08/24/2016 13:41 CDT Performed On: 08/24/2016 13:36 CDT by CHINYERE ESPINAL LPN Intake Chief Complaint : OB check 24 weeks and 2 days Ambulatory Intake Additional Information : Zika. Pt c/o pressure and imer kelly. (Comment: Zika screening questions1.) Have you or your partner traveled outside of [place] up to 6 monthsprior to this ? Yes-partner 2.) If so, where specifically have you or your partner traveled(Country, State)? [place]3.) If you or your partner have traveled to [place] since April? No Where in [place] did you travel? _N/A [CHINYERE ESPINAL LPN [...] Information Given By : Patient Languages : Luxembourger Is Patient Female and 13-50 no hysterectomy : No CHINYERE ESPINAL Nadia FERNÁNDEZ - 08/24/2016 13:36 CDT Subjective Pain Symptoms : No KYLIE CHINYERE Nadia FERNÁNDEZ - 08/24/2016 13:36 CDT Dependent [...] Daily Amount : regular 1-2 cans daily KYLIECHINYERE LANDIS LPN - 08/24/2016 13:36 CDT [facility] Document Id: [id number] CDT!34 documented in this encounter Plan of Treatment Upcoming Encounters Date Type Specialty Care Team Description 10/19/2022 Procedure visit Neurology Marina Winter M.D., M.P.H. [address] [phone] (Wo rk) Scheduled Procedures [...] Complete, Includes Microscopic (08/24/2016 3:05 PM CDT) [facility] Method Time Signature HXUR WBC. 4-10 [...] (A) Negative POWERCHART Specific >=1.030 (A) POWERCHART [place], POCT, U Comment: Reference Range Specific [place]: 1.000-1.035 pH, POCT, Urine 5.5 POWERCHART Comment: [...]
--- OUTSIDE RECORDS SUMMARY | 2022-09-05 06:12 | XMS_ITS | Encounter Summary ---
:1985 Author Organization [facility] Address [address] [place] [address] Care Team Providers Name Role Phone Unavailable Primary Care Provider Unavailable Encounter Details Date Type Department Care Team Description 10/13/2016 Hospital Encounter HX NO MAPPING Eva Booth M.D. [address] [place], [place] [phone] (Wo rk) Social History [...] How often do you attend jain or zoroastrianism Never 07/04/2019 services? 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 [address] [phone] (Wo rk) Scheduled Procedures Name Priority Associated Diagnoses Date/Time LIFT THIGH Excessive And Redundant Skin And Subcutaneous Tissue documented as of this encounter Visit Diagnoses Not on filedocumented in this encounter Additional Health Concerns Assessment Noted Time PHQ-9 Depression Total Score: 13 06/14/2015 3:56 PM CD T documented as of this encounter
--- OUTSIDE RECORDS SUMMARY | 2022-09-05 06:12 | XMS_ITS | Encounter Summary ---
:1985 Author Organization [facility] Address [address] [place] [address] Care Team Providers Name Role Phone Unavailable [...] How often do you attend orthodoxy or oriental orthodox Never 07/04/2019 services? 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 [address] [phone] (Wo rk) Scheduled Procedures Name Priority Associated Diagnoses Date/Time LIFT THIGH Excessive And Redundant Skin And Subcutaneous Tissue documented as of this encounter Visit Diagnoses Not on filedocumented in this encounter Additional Health Concerns Assessment Noted Time PHQ-9 Depression Total Score: 13 06/14/2015 3:56 PM CD T documented as of this encounter
--- OUTSIDE RECORDS SUMMARY | 2022-09-05 06:12 | XMS_ITS | Encounter Summary ---
:1985 Author Organization [facility] Address [address] [place] [address] Care Team Providers Name Role Phone Unavailable Primary Care Provider Unavailable Encounter Details Date Type Department Care Team Description 04/20/2016 Hospital Encounter HX [facility] Promise Rouse M.D. [address] [place], [place] [phone] (Wo rk) Social History [...] How often do you attend sikhism or islam Never 07/04/2019 services? 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 - 04/20/2016 1:15 PM CDT Ambulatory Patient Education The following Patient Education Materials have been given to the patient: Patient Education Materials: Money Market Dealer Adapting to : First Trimester Money Market Dealer Adapting to : First Trimester As your [...] the risk of stillbirth or having a kyz-jyqvn-jeqvgi baby. If you smoke, quit now. ?? [...] see whats best for you both. ?? [id number] [facility], [address] [place] [address], [place] [address]. All rights reserved. This information is not intended as a substitute for professional medical care. Always follow your healthcare professional's instructions. This document has images extracted. Please consider using [email or web address] for all your patient education needs. Source: [facility] POWERCHART Document Id: [id number] documented in this encounter Miscellaneous Notes Miscellaneous - Laverne Conti, L.P.N. - 04/20/2016 1:50 PM CDT Water Pumper Documentation Water Pumper Documentation Entered On: 04/20/2016 13:51 CDT Performed On: 04/20/2016 13:50 CDT by LAVERNE CONTI LPN Water Pumper Documentation Exam/Procedure Performed : NOB cervical check CD Water Pumper Present : Yes CD Water Pumper Name : Lois Present in Room During Exam/Procedure : Alone LAVERNE CONTI LPN - 04/20/2016 13:50 CDT Source: [employer] Document Id: [id number] CDT!6 Miscellaneous - Laverne Conti L.PRodrigoNRodrigo - 04/20/2016 1:19 PM CDT Adult Pin Drafting Machine Tender Intake/History Adult Pin Drafting Machine Tender Intake/History Entered On: 04/20/2016 13:21 CDT Performed On: 04/20/2016 13:19 CDT by LAVERNE CONTI DOWNSTAIRS MAID Intake Actual Weight : 136.2 kg(Converted to: 300 lb 4 oz) Dosing Weight Clinic : 136.2 kg Clinic BSA : 2.49 Body Mass Index : 50.64 kg/m2 LAVERNE CONTI [facility] - 04/20/2016 13:23 CDT Chief Complaint : NOB Systolic Blood Pressure : 126 mmHg Diastolic Blood Pressure : 70 mmHg NIBP Mean : 89 mmHg BP Location : Left upper extremity Blood Pressure Cuff Size : Large Height : 164 cm(Converted to: 5 ft 5 inch(es), 65 inch(es)) LAVERNE CONTI [facility] - 04/20/2016 13:19 CDT General Info Languages : Italian Is Patient Female and 13-50 no hysterectomy : No LAVERNE CONTI [facility] - 04/20/2016 13:19 CDT Subjective Pain Symptoms : LAVERNE Holden [facility] - 04/20/2016 13:19 CDT Dependent Habits Exposure to Tobacco Smoke : Other: never Smoking Status : Never smoker Tobacco 2A : No Tobacco Use/Currently Using : No Tobacco Use/Last 30 Days : No Tobacco Use/Last 12 months : No LAVERNE CONTI [facility] - 04/20/2016 13:19 CDT Caffeine Use Grid Caffeine Use : Current Type : Soft drinks Frequency : Daily Amount : regular 1-2 cans daily LAVERNE CONTI DOWNSTAIRS MAID - 04/20/2016 13:19 CDT Source: [employer] Document Id: [id number] CDT!6 Shar Salamanca M.D. - 04/20/2016 1:15 PM CDT Ambulatory Discharge Medication List [facility] [address] [place] [id number] Visit Information Name: NANCY PHILLIPS [facility] Number: [id number] Visit Date: 04/20/2016 13:15:41 Attending [...] MD Signed On:20-APR-2016 13:15:28 Additional Information: Source: [facility] POWERCHART Document Id: [id number] Shar Salamanca M.D. - 04/20/2016 1:15 PM CDT Ambulatory Patient Summary [facility] [address] [place] [id number] Visit Information Name: NANCY PHILLIPS [facility] Number: [id number] Current Date: 04/20/2016 13:15:42 Physicians [...] the risk of stillbirth or having a rky-dwkfd-nsqaic baby. If you smoke, quit now. ?? [...] see whats best for you both. ?? [id number] [facility], [address] [place] [address], [place] [address]. All rights reserved. This information is not [...] if you dont have one. Go to [email or web address] and click on Create Your Account. Then, follow the directions to complete the online form. Youll be asked for your [facility] number which you can find at the top of this document. Your Goals/Additional instructions: This document has images extracted. Please consider using [email or web address] for all your patient education needs. Source: [facility] POWERCHART Document Id: [id number] documented in this encounter Plan of Treatment Upcoming Encounters Date Type Specialty Care Team Description 10/19/2022 Procedure visit Neurology Marina Winter M.D., M.P.H. [address] [phone] (Wo rk) Scheduled Procedures [...] procedure are in the results section. PATHOLOGY PIGMENT PROCESSOR Routine 04/20/2016 12:00 Results fo r this CYTOLOGY AM CDT procedure are i n the results section. documented in this encounter Results Chlamydia / Gonorrhoeae Amplified RNA (04/20/2016 1:27 PM CDT) Component Value Ref Test Analysis Performed At [facility] Range Method Time Signature HX GC by [...] Component Value Ref Test Analysis Performed At [facility] Range Method Time Signature HXChlamydia by POWERCHART [...] Tejeda M.D. LAB MICROBIOLOGY - GENERAL O RDERAMARILYN Performing Organization Address City/State/[facility] Code Phon e Number POWERCHART Pathology PIGMENT PROCESSOR Cytology (04/20/2016 12:00 AM CDT) Specimen (Source) Anatomical Location Collection Method / Collectio n Time Received Time / Laterality Volume 04/20/2016 Narrative [facility] LAB - 04/26/2016 2:15 PM CDT [facility] in [address] [place], [place] ??[address] Patient Name: NANCY PHILLIPS Patient ID #: [id number] Collected: 04/20/2016 Address: [facility]/State/Zip: [address] [place], [place] ??[address] Received: Reported: 04/21/2016 04/26/2016 Soc. Sec. #: ?/Age/Sex 1985 (Age: 31) ??F Physician(s): GLENN TEJEDA MD Copy To: ? [facility] ?? [id number] [place], ??[place] ??[address] CYTOPATHOLOGY PIGMENT PROCESSOR REPORT FINAL CYTOLOGIC DIAGNOSIS Pap Smear - [...]
--- OUTSIDE RECORDS SUMMARY | 2022-09-05 06:12 | XMS_ITS | Encounter Summary ---
:1985 Author Organization [facility] Address [address] [place] [address] Care Team Providers Name Role Phone Unavailable Primary Care Provider Unavailable Encounter Details Date Type Department Care Team Description 09/05/2016 Hospital Encounter HX [facility] Nancy Willson, ÁNGEL, C.N.P. [address] [place], [place] [phone] (Wo rk) Social History [...] How often do you attend christian or mandaeism Never 07/04/2019 services? 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 Electronically Signed By: NANCY KEENAN APRN DESIGN LEAD Signed On:05-SEP-2016 11:03:13 Your Allergies & Intolerances [...] OWOC Lab OWOC Lab 09/21/2016 09:15 OWOC TETRYL NITRATOR OPERATOR Ileana RED, Nahun Regalado 10/05/2016 13:15 OWOC TETRYL NITRATOR OPERATOR Ileana RED, Nahun Regalado 10/19/2016 13:15 OWOC TETRYL NITRATOR OPERATOR Ileana RED, Nahun Regalado 11/02/2016 13:15 OWOC TETRYL NITRATOR OPERATOR Ileana RED, Nahun Regalado 11/16/2016 13:15 OWOC TETRYL NITRATOR OPERATOR Ileana RED, Nahun Regalado 11/23/2016 13:15 OWOC TETRYL NITRATOR OPERATOR Ileana RED, Nahun Regalado 12/15/2016 11:15 OWOC TETRYL NITRATOR OPERATOR Ayanna Xie NP 01/12/2017 13:15 OWOC TETRYL NITRATOR OPERATOR Ileana RED, Nahun Regalado Attention: Contact [...] if you dont have one. Go to [email or web address] and click on Create Your Account. Then, follow the directions to complete the online form. Youll be asked for your [facility] number which you can find at the top of this document. Your Goals/Additional instructions: Source: [facility] POWERCHART Document Id: [id number] Miscellaneous - Nancy Keenan APRN, C.N.P. - 09/05/2016 11:03 AM CDT Ambulatory Discharge Medication List [facility] [address] [place] [id number] Visit Information Name: NANCY PHILLIPS [facility] Number: [id number] Current Date: 09/05/2016 11:03:15 Attending Provider: NANCY KEENAN APRN DESIGN LEAD Primary Care Provider: MAILE ZARATE MD NANCY [...] emergency. Electronically Signed By: NANCY KEENAN APRN DESIGN LEAD Signed On:05-SEP-2016 11:03:13 Additional Information: Source: [facility] POWERCHART Document Id: [id number] Miscellaneous - Lia Mccarty LRodrigoP.N. - 09/05/2016 10:09 AM CDT Adult Machine Taper Intake/History Adult Machine Taper Intake/History Entered On: 09/05/2016 10:13 CDT Performed On: 09/05/2016 10:09 CDT by LIA MCCARTY GENERAL MAGISTRATE Intake Chief Complaint : ob check in labor and delivery stated bp was elevated and was told there was bloodin her urine. LMP Date : 03-07-2016 Ambulatory Intake Additional Information : zika (Comment: Zika screening questions1.) Have you or your partner traveled outside of [place] up to 6 monthsprior to this ? yes2.) If so, where specifically have you or your partner traveled (Country, State)?[place]3.) If you or your partner have traveled to [place] since April? No Where in [place] did you travel? _ [LIA MCCARTY LPN [...] Pain Symptoms : Yes LIA MCCARTY LPN 09/05/2016 10:09 CDT Pain Scale Pain Scale [...] MCCARTY LPN - 09/05/2016 10:09 CDT Source: [employer] Document Id: [id number] CDT!40 documented in this encounter Plan of Treatment Upcoming Encounters Date Type Specialty Care Team Description 10/19/2022 Procedure visit Neurology Marina Winter M.D., M.P.H. [address] [place] [phone] (Wo rk) Scheduled Procedures Name Priority Associated Diagnoses Date/Time LIFT THIGH Excessive And Redundant Skin And Subcutaneous Tissue documented as of this encounter Visit Diagnoses Not on filedocumented in this encounter Additional Health Concerns Assessment Noted Time PHQ-9 Depression Total Score: 13 06/14/2015 3:56 PM CD T documented as of this encounter
--- OUTSIDE RECORDS SUMMARY | 2022-09-05 06:13 | XMS_ITS | Encounter Summary ---
:1985 Author Organization [facility] Address [address] [place] [address] Care Team Providers Name Role Phone Unavailable Primary Care Provider Unavailable Encounter Details Date Type Department Care Team Description 09/14/2015 Hospital Encounter HX NO MAPPING Checo Wright III, M.D. (Skip), M.P.H. [address] [place], [place] [address] (Wo rk) Social History [...] How often do you attend anabaptism or confucianist Never 07/04/2019 services? 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 [address] [phone] (Wo rk) Scheduled Procedures Name Priority Associated Diagnoses Date/Time LIFT THIGH Excessive And Redundant Skin And Subcutaneous Tissue documented as of this encounter Visit Diagnoses Not on filedocumented in this encounter Additional Health Concerns Assessment Noted Time PHQ-9 Depression Total Score: 13 06/14/2015 3:56 PM CD T documented as of this encounter
--- OUTSIDE RECORDS SUMMARY | 2022-09-05 06:13 | XMS_ITS | Encounter Summary ---
:1985 Author Organization [facility] Address [address] [place] [address] Care Team Providers Name Role Phone Unavailable Primary Care Provider Unavailable Encounter Details Date Type Department Care Team Description 01/10/2016 Hospital Encounter HX [facility] URGENTCAR Emanuel Ha M.D. [address] [place] [phone] (Wo jesica) Social History Tobacco Use Types [...] How often do you attend scientologist or denominational Never 07/04/2019 services? 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 - 01/10/2016 3:10 PM CST [id number] Patient comes in with persistent cough. She was seen last week and it was thought to be more viral. 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 Addendum by MAILE ZARATE MD on March 06, 2016 10:05:36 CDT From: MAILE ZARATE MD To: [facility] 2W Nurse; Sent: 03/06/2016 10:05:36 CDT ! Subject: RE: *Phone Message I have ordered urine test which she can schedule as lab only. She should do her OB care with GENERAL OPERATOR due to repeat C/S and Gestational diabetes. I think she has seen [place] GENERAL OPERATOR in the past. Addendum by JOAQUINA GRANDA CMA on March 06, 2016 09:38:21 CDT From: JOAQUINA GRANDA CMA ([facility] 2 Nurse) To: MAILE ZARATE MD; Sent: 03/06/2016 09:38:21 CDT ! Subject: FW: *Phone Message Nurse spoke with patient LMP 30-16 NIMA 11-07-16. Patient stated that she needs to have a prenancy test done [place] the [place]. Patient also stated that she will be at the clinic today for a different appt at 3. Patient would like to know does she need to have an appt or can a lab be ordered. please advise. From: YOLI RICH ([address] Aligning Checker) To: [facility] 2 Nurse; Sent: 03/06/2016 07:28:28 CDT Subject: *Phone Message Caller is: ( x ) Patient ( ) Mother ( ) Father ( ) Spouse ( ) Daughter ( ) Son ( ) Pharmacy ( ) Other: Physician: jeyson Patient MRN #: Reason for Call: Message: patient calling- would like a prenancy test ordered- call her back at [phone] Advice/Action: Source used: ( ) Verbalizes understanding [...] number ( ) Source: [facility] POWERCHART Document Id: [id number] Miscellaneous - Aure Polk RSarah. - 01/10/2016 3:35 PM CST Adult Lab Manager Intake/History Adult Lab Manager Intake/History Entered On: 01/10/2016 15:37 TELESALES MANAGER Performed On: 01/10/2016 15:35 TELESALES MANAGER by AURE POLK LPN Intake Chief Complaint [...] kg/m2 AURE POLK LPN - 01/10/2016 15:35 TELESALES MANAGER General Info Information Given By : Patient Preferred Communication Mode : Verbal Languages : Japanese Is Patient Female and 13-50 no hysterectomy : Yes Status : Patient denies Are you ? : No AURE POLK LPN - 01/10/2016 15:35 TELESALES MANAGER Subjective Pain Symptoms : No AURE POLK LPN - 01/10/2016 15:35 TELESALES MANAGER Dependent Habits Exposure to Tobacco Smoke : Other: never Smoking Status : Never smoker Tobacco 2A : No Tobacco Use/Currently Using : No Tobacco Use/Last 30 Days : No Tobacco Use/Last 12 months : No AURE POLK LPN - 01/10/2016 15:35 TELESALES MANAGER Caffeine Use Grid Caffeine Use : Current Type : Soft drinks Frequency : Daily AURE POLK LPN - 01/10/2016 15:35 TELESALES MANAGER [facility] Document Id: [id number] TELESALES MANAGER!37 SALES MANAGER documented in this encounter Plan of Treatment Upcoming Encounters Date Type Specialty Care Team Description 10/19/2022 Procedure visit Neurology Marina Winter M.D., M.P.H. [address] [phone] (Wo rk) Scheduled Procedures Name Priority Associated Diagnoses Date/Time LIFT THIGH Excessive And Redundant Skin And Subcutaneous Tissue documented as of this encounter Visit Diagnoses Not on filedocumented in this encounter Additional Health Concerns Assessment Noted Time PHQ-9 Depression Total Score: 13 06/14/2015 3:56 PM CD T documented as of this encounter
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
--- OUTSIDE RECORDS SUMMARY | 2022-09-05 06:13 | XMS_ITS | Encounter Summary ---
:1985 Author Organization [facility] Address [address] [place] [address] Care Team Providers Name Role Phone Unavailable Primary Care Provider Unavailable Encounter Details Date Type Department Care Team Description 01/06/2016 Hospital Encounter HX [facility] Veronica Mccord M.D. [address] [place] [phone] (Wo rk) Social History Tobacco [...] How often do you attend gnosticism or yazidism Never 07/04/2019 services? 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 - 01/06/2016 6:38 PM CST [id number] CHIEF COMPLAINT/REASON FOR VISIT A 30-year-old female, [...] MCCORD MD On: 01/09/2016 10:07 AM Source: [facility] MHSDOLBEYNONRADSYS Document Id: [id number] N HELPER documented in this encounter Miscellaneous Notes Miscellaneous - Juany Mccord M.D. - 01/06/2016 7:39 PM CST Ambulatory Patient Summary [facility] [place] [address] [place], [place] [id number] Visit Information Name: NANCY PHILLIPS [facility] Number: [id number] Current Date: 01/06/2016 19:39:09 Physicians [...] if you dont have one. Go to [email or web address] and click on Create Your Account. Then, follow the directions to complete the online form. Youll be asked for your [facility] number which you can find at the top of this document. Your Goals/Additional instructions: Source: [facility] POWERCHART Document Id: [id number] N HELPER Miscellaneous - Juany Mccord M.D. - 01/06/2016 7:39 PM CST Ambulatory Discharge Medication List [facility] [address] [place] [id number] Visit Information Name: NANCY PHILLIPS [facility] Number: [id number] Visit Date: 01/06/2016 19:39:07 Attending [...] MD Signed On:06-JAN-2016 19:39:04 Additional Information: Source: [facility] POWERCHART Document Id: [id number] N HELPER Miscellaneous - Rocio Wolf, C.M.ARodrigo - 01/06/2016 7:09 PM CST Adult Hospice Clinical Manager Intake/History Adult Hospice Clinical Manager Intake/History Entered On: 01/06/2016 19:17 MASON HELPER Performed On: 01/06/2016 19:09 MASON HELPER by [facility] Intake Chief Complaint : hard time breathing, [...] Mass Index : 50.71 kg/m2 [facility] - 01/06/2016 19:09 MASON HELPER General Info Information Given By : Patient Languages : Brazilian Is Patient Female and 13-50 no hysterectomy : Yes Status : Patient denies Are you ? : No [facility] - 01/06/2016 19:09 MASON HELPER Subjective Pain Symptoms : Yes [facility] - 01/06/2016 19:09 MASON HELPER Pain Scale Pain Scale Verbal 0-10 : Open [facility] - 01/06/2016 19:09 MASON HELPER Pain Pain Assessment Grid Pain 1 Pain 2 Location : Chest Other: middle back Laterality : Other: middle Right Intensity : 3 4 [facility] - 01/06/2016 19:09 MASON HELPER [facility] - 01/06/2016 19:09CST Dependent Habits Exposure to Tobacco Smoke : Other: never Smoking Status : Never smoker Tobacco 2A : No Tobacco Use/Currently Using : No Tobacco Use/Last 30 Days : No Tobacco Use/Last 12 months : No [facility] - 01/06/2016 19:09 MASON HELPER Caffeine Use Grid Caffeine Use : Current Type : Soft drinks Frequency : Daily [facility] - 01/06/2016 19:09 MASON HELPER Source: [facility] [employer]CHART Document Id: [id number] MASON HELPER!51 N HELPER documented in this encounter Plan of Treatment Upcoming Encounters Date Type Specialty Care Team Description 10/19/2022 Procedure visit Neurology Marina Winter M.D., M.P.H. [address] [phone] (Wo rk) Scheduled Procedures Name Priority Associated Diagnoses Date/Time LIFT THIGH Excessive And Redundant Skin And Subcutaneous Tissue documented as of this encounter Visit Diagnoses Not on filedocumented in this encounter Additional Health Concerns Assessment Noted Time PHQ-9 Depression Total Score: 13 06/14/2015 3:56 PM CD T documented as of this encounter
--- OUTSIDE RECORDS SUMMARY | 2022-09-05 06:13 | XMS_ITS | Encounter Summary ---
:1985 Author Organization [facility] Address [address] [place] [address] Care Team Providers Name Role Phone Unavailable Primary Care Provider Unavailable Encounter Details Date Type Department Care Team Description 04/07/2016 Hospital Encounter HX [facility] Nahun Tejeda M.D. [address] [place], [place] [phone] (Wo rk) Social History [...] How often do you attend anabaptist or episcopal Never 07/04/2019 services? 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 [address] [place] [phone] (Wo rk) Scheduled Procedures Name Priority [...] (ABNORMAL) Urine Microscopic (04/07/2016 11:15 AM CDT) [facility] Method Time Signature HXUR WBC. None Seen [...] M.D. LAB URINE ORDERABLES Performing Organization Address City/[facility]/ZIP Code Phon e Number POWERCHART (ABNORMAL) Urinalysis, Routine (04/07/2016 11:15 AM CDT) [facility] Method Time Signature HXUr Color Yellow Yellow POWERCHART Clarity Clear Clear POWERCHART Glucose Negative Negative POWERCHART HXBILIRUBIN Negative Negative POWERCHART Ketones, QL(U) Negative Negative POWERCHART Specific 1.026 1.001 - POWERCHART Magnet, POCT, U 1.035 pH, POCT, Urine 5.0 [...] M.D. LAB URINE ORDERABLES Performing Organization Address [facility] Code Phon e Number POWERCHART Bacterial Culture, Aerobic, Urine (04/07/2016 11:15 AM CDT) [facility] Method Time Signature Bacterial POWERCHART Culture, Aerobic, Urine HXFinal Mixed carmelo. No POWERCHART further studies unless notified. HXFinal [place] POWERCHART Microbiology laboratory [phone]. Specimen (Source) Anatomical Collection Method Collection Time Re ceived Time Location / / Volume Laterality Urine, First 04/07/2016 11:15 Voided AM CDT Comment: P Nahun Tejeda M.D. LAB MICROBIOLOGY - GENERAL O RDERABLES Performing Organization Address City/[facility]/ZIP Code Phon e Number POWERCHART Antibody Screen (04/07/2016 11:07 AM CDT) athologist Signature Antibody Negative POWERCHART Screen Comment: Test Performed by: [facility] - [address] [address] Lab oratory Director: Hardik Burroughs II, M.D., Ph.D. Specimen (Source) Anatomical Collection Method Collection Time Re ceived Time Location / / Volume Laterality 04/07/2016 11:07 AM CDT Nahun Tejeda M.D. LAB BLOOD BANK TEST ORDERABL ES Performing Organization Address [facility] Code Phon e Number POWERCHART Grouping and Rh-Gallegos FLIP, see #[id number] (04/07/2016 11:07 AM CDT) Patholo gist Method Time Signature HX Grouping A Positive POWERCHART and Rh Specimen (Source) Anatomical Collection Method Collection Time Re ceived Time Location / / Volume Laterality 04/07/2016 11:07 AM CDT Nahun Tejeda M.D. LAB BLOOD BANK TEST ORDERABL ES Performing Organization Address [facility] Code Phon e Number POWERCHART Automated Differential [...] Performing Organization Address City/[facility] Phon e Number POWERCHART CBC with Differential (04/07/2016 11:07 AM CDT) P athologist Signature Leukocytes 7.8 3.4 - 10.5 POWERCHART X109L Erythrocytes 4.37 3.90 - 5.03 POWERCHART [id number] Hemoglobin 13.1 12.0 - 15.5 POWERCHART GDL [...] M.D. LAB BLOOD ADD-ON Performing Organization Address [facility] Code Phon e Number POWERCHART Profile II without CBC/Serum (04/07/2016 11:07 AM CDT) P athologist Signature HBs Antigen, S Negative Negative POWERCHART Comment: Test Performed by: [facility] [place] [address] Reservations Agent: Hardik Burroughs II, M.D., Ph.D. Syphilis IgG Ab, S Negative Negative POWERCHART Comment: No serologic evidence of exposure to syp hilis. Test Performed by: [facility] [place] [address] Reservations Agent: Hardik Burroughs II, M.D., Ph.D. HX Rubella IgG-[place]ley Positive POWERCHART Comment: Results suggest response to immunization or prior exposure to the virus. REFERENCE VALUE------ Vaccinated: Positive (>=1.0 AI) Unvaccinated: Negative (<=0.7 AI) Rubella IgG Antibody Index 1.8 POW ERCHART Comment: Test Performed by: [facility] [place] [address] Reservations Agent: Hardik Burroughs II, M.D., Ph.D. Specimen (Source) Anatomical Collection Method Collection Time Re ceived Time Location / / Volume Laterality Blood 04/07/2016 11:07 AM CDT Nahun Tejeda M.D. LAB BLOOD NON ADD-ON Performing Organization Address City/[facility] Code Phon e Number POWERCHART HIV-1/-2 Ag and Ab Screen (04/07/2016 11:07 AM CDT) P athologist Signature HIV-1/-2 Negative Negative POWERCHART Antibody Comment: Negative result does not rule out HIV in fection. If acute HIV infection is suspected in a hi gh-risk individual, submit plasma specimen for H IV-1 RNA quantification test (HIVDQ) and/or HIV-2 DNA/RNA test (FHV2Q). Test Performed by: [address] [address] Reservations Agent: Hardik Burroughs II, M.D., Ph.D. Specimen (Source) Anatomical Collection Method Collection Time Re ceived Time Location / / Volume Laterality Blood 04/07/2016 11:07 AM CDT Nahun Teejda M.D. LAB MICROBIOLOGY - BLOOD ORD ERABLES [...] M.D. LAB BLOOD ADD-ON Performing Organization Address City/State/[facility] Code Phon e Number POWERCHART documented in this encounter Visit Diagnoses Not on filedocumented in this encounter Additional Health Concerns Assessment Noted Time PHQ-9 Depression Total Score: 13 06/14/2015 3:56 PM CD T documented as of this encounter
--- OUTSIDE RECORDS SUMMARY | 2022-09-05 06:13 | XMS_ITS | Encounter Summary ---
:1985 Author Organization [facility] Address [address] [place] [address] Care Team Providers Name Role Phone Unavailable Primary Care Provider Unavailable Encounter Details Date Type Department Care Team Description 11/27/2014 Hospital Encounter [facility]X [facility] Shiela Cadet M.B., Ch.B. 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 [address] [place] [address] [phone] (Wo rk) Scheduled Procedures Name Priority Associated Diagnoses Date/Time LIFT THIGH Excessive And Redundant Skin And Subcutaneous Tissue documented as of this encounter Procedures Procedure Name Priority Date/Time Associated Comments Diagnosis GLUCOSE, P Routine 11/27/2014 10:41 Results for this AM BEADER TENDER procedure are i n the results section. AUTOMATED DIFFERENTIAL, Routine 11/27/2014 10:41 Results for this B AM BEADER TENDER procedure are i n the results section. PROTHROMBIN TIME (PT), P Routine 11/27/2014 10:41 Results for this AM BEADER TENDER procedure are i n the results section. CBC WITH DIFFERENTIAL, B Routine 11/27/2014 10:41 Results for this AM BEADER TENDER procedure are i n the results section. ALANINE AMINOTRANSFERASE Routine 11/27/2014 10:41 Results for this (ALT), S/P AM BEADER TENDER procedure are i n the results section. ASPARTATE Routine 11/27/2014 10:41 Results for this AMINOTRANSFERASE (AST), AM BEADER TENDER proc edure are in S/P the results section. CREATININE WITH EGFR, Routine 11/27/2014 10:41 Re sults for this S/P AM BEADER TENDER procedure are i n the results section. ALBUMIN, S/P Routine 11/27/2014 10:41 Results for this AM BEADER TENDER procedure are i n the results section. documented in this encounter Results Automated Differential (11/27/2014 10:41 AM BEADER TENDER) P athologist Signature Absolute 5.45 1.70 - POWERCHART Neutrophils 7.00 109L Lymphocytes 2.18 0.90 - POWERCHART 2.90 X109L Monocytes 0.55 0.30 - POWERCHART 0.90 X109L Eosinophils 0.20 0.05 - POWERCHART 0.50 X109L Absolute 0.02 0.00 - POWERCHART Basophil 0.30 X109L Specimen Anatomical Collection Method Collection Time Receive d Time (Source) Location / / Volume Laterality Blood 11/27/2014 10:41 11/27/2014 AM BEADER TENDER 10:41 AM BEADER TENDER Shiela Marx, ChRodrigoB. LAB BLOOD ADD-ON Performing Organization Address City/State/ZIP Code Phon e Number POWERCHART PT (Prothrombin Time) with INR (11/27/2014 10:41 AM BEADER TENDER) P athologist Signature INR 0.9 INR POWERCHART Specimen (Source) Anatomical Collection Method Collection Time Re ceived Time Location / / Volume Laterality Blood 11/27/2014 10:41 AM BEADER TENDER Shiela Marx Ch.B. LAB BLOOD ADD-ON Performing Organization Address City/State/ZIP Code Phon e Number POWERCHART CBC with Differential (11/27/2014 10:41 AM BEADER TENDER) P athologist Signature Leukocytes 8.4 3.4 - 10.5 POWERCHART X109L Erythrocytes 4.67 3.90 - POWERCHART 5.03 R0534A Hemoglobin 13.7 12.0 - POWERCHART 15.5 GDL Hematocrit 41.4 34.9 - POWERCHART 44.5 MCV 88.7 82.0 - POWERCHART 98.0 FL Platelet Count 253 150 - 450 POWERCHART X109L HX RDW 12.9 11.9 - POWERCHART 15.5 HXDifferential? Auto POWERCHART Specimen (Source) Anatomical Collection Method Collection Time Re ceived Time Location / / Volume Laterality Blood 11/27/2014 10:41 AM BEADER TENDER Shiela Marx Ch.B. LAB BLOOD ADD-ON Performing Organization Address City/State/ZIP Code Phon e Number POWERCHART Glucose (11/27/2014 10:41 AM BEADER TENDER) P athologist Signature Glucose 83 POWERCHART Specimen (Source) Anatomical Collection Method Collection Time Re ceived Time Location / / Volume Laterality Blood 11/27/2014 10:41 AM BEADER TENDER Shiela Marx Ch.B. LAB BLOOD ADD-ON Performing Organization Address City/State/ZIP Code Phon e Number POWERCHART (ABNORMAL) Creatinine with eGFR (11/27/2014 10:41 AM BEADER TENDER) Analysis Performed At Patho logist Time Signature Creatinine <0.5 (L) 0.7 - 1.2 POWERCHART MGDL HXeGFR (MDRD) >60 MLMIN POWERCHART eGFR >60 >=60 POWERCHART Black/ [id number] Slovak Specimen (Source) Anatomical Collection Method Collection Time Re ceived Time Location / / Volume Laterality Blood 11/27/2014 10:41 AM BEADER TENDER Shiela Marx Ch.B. LAB BLOOD ADD-ON Performing Organization Address City/[facility]/ZIP Code Phon e Number POWERCHART AST (Aspartate Aminotransferase) (11/27/2014 10:41 AM BEADER TENDER) Patholo gist Method Time Signature Aspartate <11 8 - 43 POWERCHART Aminotransferase UNITL (AST), S Specimen (Source) Anatomical Collection Method Collection Time Re ceived Time Location / / Volume Laterality Blood 11/27/2014 10:41 AM BEADER TENDER Shiela Marx Ch.B. LAB BLOOD ADD-ON Performing Organization Address [facility] Code Phon e Number POWERCHART ALT (Alanine Aminotransferase) (11/27/2014 10:41 AM BEADER TENDER) P athologist Signature Alanine 17 9 - 52 POWERCHART Amniotransferas UNITL e, LD Specimen (Source) Anatomical Collection Method Collection Time Re ceived Time Location / / Volume Laterality Blood 11/27/2014 10:41 AM BEADER TENDER Shiela Marx Ch.B. LAB BLOOD ADD-ON Performing Organization Address City/[facility]/ZIP Code Phon e Number POWERCHART (ABNORMAL) Albumin (11/27/2014 10:41 AM BEADER TENDER) P athologist Signature Albumin, S 3.4 (L) 3.5 - 5.0 POWERCHART GMDL Specimen (Source) Anatomical Collection Method Collection Time Re ceived Time Location / / Volume Laterality Blood 11/27/2014 10:41 AM BEADER TENDER Shiela Marx Ch.B. LAB BLOOD ADD-ON Performing Organization Address City/[facility]/ZIP Code Phon e Number POWERCHART documented in this encounter Visit Diagnoses Not on filedocumented in this encounter Additional Health Concerns Assessment Noted Time PHQ-9 Depression Total Score: 10 10/12/2014 10:[address] documented as of this encounter
--- OUTSIDE RECORDS SUMMARY | 2022-09-05 06:13 | XMS_ITS | Encounter Summary ---
:1985 Author Organization [facility] Address [address] [place] [address] Care Team Providers Name Role Phone Unavailable Primary Care Provider Unavailable Encounter Details Date Type Department Care Team Description 10/12/2014 Hospital Encounter HX [facility] Ирина Baird, ArnoldoA. [address] [place] [address] [place] [address] (Wo rk) Social History Tobacco Use Types [...] How often do you attend quaker or scientologist Never 07/04/2019 services? Do you [...] at Date Recorded Female 10/16/2018 10:53 AM INSTRUMENT CALIBRATOR documented as of this encounter Last Filed Vital Signs Vital Sign Reading Time Taken Comments Blood Pressure 122/78 10/12/2014 9:00 AM INSTRUMENT CALIBRATOR Pulse 76 10/12/2014 9:00 AM INSTRUMENT CALIBRATOR Temperature - - Respiratory Rate 20 10/12/2014 9:00 AM INSTRUMENT CALIBRATOR Oxygen Saturation - - Inhaled Oxygen Concentration - - Weight 124 kg (274 lb 7.6 oz) 10/12/2014 9:00 AM INSTRUMENT CALIBRATOR Height 164 cm (5' 4.57) 10/12/2014 9:00 AM INSTRUMENT CALIBRATOR Body Mass Index 46.29 10/12/2014 9:00 AM INSTRUMENT CALIBRATOR documented in this encounter Progress Notes Ирина Coleman L - 10/12/2014 8:45 AM CST [id number] CHIEF COMPLAINT/REASON FOR VISIT Discuss medications. HISTORY OF PRESENT ILLNESS Nancy is a 29-year-old female who presents to the clinic today to discuss medications. Primary care provider is Lexii Minor. Nancy states that she was [facility] able [facility], and she actually has an appointment [...] She does see a therapist, Steven, in [place] every month or 2. She is currently [...] very interested in. Referral was made to [facility]. Prescription for phentermine given in clinic today, and she is actually scheduled to see her primary care provider on 11/04/2014 for followup. 2. Plan to restart Effexor 37.5 mg daily for 1 week, then increase to 75 mg daily thereafter. She isscheduled to see her primary care provider for followup on 11/04/2014. Yariel Delarosa Electronically Signed By: ИРИНА COLEMAN PA-C On: 12/28/2014 09:05 AM Source: [facility] MHSDOLBEYNONRADSYS Document Id: [id number] RUMENT CALIBRATOR documented in this encounter Nursing Notes Denia Contreras - 10/14/2014 8:46 AM CST REFERRAL PER ИРИНА COLEMAN REFERRAL TO [facility] FOR MORBID OBESITY / DISCUSS WT LOSS PROCEDURES SUBMITTED VIA OSRP. Electronically Signed By: DENIA CONTRERAS On: 10/14/2014 08:48 AM Source: [facility] Document Id: [id number] RUMENT CALIBRATOR documented in this encounter Miscellaneous Notes Miscellaneous - Jessica Duenas L.P.N. - 10/12/2014 10:16 AM CST PHQ-9 PHQ-9 Entered On: 10/12/2014 10:16 INSTRUMENT CALIBRATOR Performed On: 10/12/2014 10:16 INSTRUMENT CALIBRATOR by JESSICA DUENAS LPN PHQ-9 Little interest or pleasure [...] or dealing with others : Very difficult JESSICA DUENAS LPN - 10/12/2014 10:16 INSTRUMENT CALIBRATOR Source: [facility] POWERCHART Document Id: [id number] INSTRUMENT CALIBRATOR!13 RUMENT CALIBRATOR Miscellaneous - Ирина Coleman - 10/12/2014 9:50 AM CST Ambulatory Patient Summary [facility] [address] [facility] [place] [phone] Visit Information Name: NANCY ROBINS [facility] Number: [id number] Current Date: 10/12/2014 09:50:01 Physicians Attending Provider: ИРИНА COLEMAN PA-C Primary Care Provider: LEXII MINOR PA-C [...] caps PO Daily thereafter. New Routed to [address] [place] [address] Stop Taking the Following Medications: Medication list [...] in case of emergency. Electronically Signed By: ИРИНА COLEMAN PA-C Signed On:12-OCT-2014 09:49:52 Your Allergies [...] Appointments Date Time Location Provider 11/04/2014 10:45 [facility] Lexii Stein Attention: Contact your local Clinic if further appointment detail needed. Your Goals/Additional instructions: Source: [facility] POWERCHART Document Id: [id number] RUMENT CALIBRATOR Miscellaneous - Ирина Coleman - 10/12/2014 9:50 AM CST Ambulatory Discharge Medication List [facility] [address] [facility] [place] [phone] Visit Information Name: NANCY ROBINS [facility] Number: [id number] Visit Date: 10/12/2014 09:49:59 Attending Provider: ИРИНА COLEMAN PA-C Primary Care Provider: LEXII MINOR PA-C [...] Oral, once a day New Routed to [place] venlafaxine (Effexor XR 37.5 mg oral capsule, extended release) See Instructions Take 1 cap PO Dailyx 1 week, then increase to 2 caps PO Daily thereafter. New Routed to [address] [address] Stop Taking the Following Medications: Medication list [...] in case of emergency. Electronically Signed By: ИРИНА COLEMAN PA-C Signed On:12-OCT-2014 09:49:52 Additional Information: Source: [facility] POWERCHART Document Id: [id number] RUMENT CALIBRATOR Miscellaneous - Jessica Duenas L.PRodrigoNRodrigo - 10/12/2014 9:00 AM CST Adult Flakeboard Line Tender Intake/History Adult Flakeboard Line Tender Intake/History Entered On: 10/12/2014 9:05 INSTRUMENT CALIBRATOR Performed On: 10/12/2014 9:00 INSTRUMENT CALIBRATOR by JESSICA DUENAS LPN Intake Chief Complaint : discuss [...] 2.38 Body Mass Index : 46.29 kg/m2 JESSICA DUENAS LPN - 10/12/2014 9:00 INSTRUMENT CALIBRATOR General Info Information Given By : Patient Languages : Portuguese Is Patient Female and 13-50 no hysterectomy : Yes Status : Patient denies Are you ? : No JESSICA DUENAS LPN - 10/12/2014 9:00 INSTRUMENT CALIBRATOR Subjective Pain Symptoms : No JESSICA DUENAS LPN - 10/12/2014 9:00 INSTRUMENT CALIBRATOR Dependent Habits Tobacco Use/Currently Using : No Exposure to Tobacco Smoke : Other: never Smoking Status : Never smoker JESSICA DUENAS LPN - 10/12/2014 9:00 INSTRUMENT CALIBRATOR Tobacco Use Grid Other Tobacco Frequency : never JESSICA DUENAS LPN - 10/12/2014 9:00 INSTRUMENT CALIBRATOR Caffeine Use Grid Caffeine Use : Current Type : Soft drinks Frequency : Daily JESSICA DUENAS LPN - 10/12/2014 9:00 INSTRUMENT CALIBRATOR ID Screen Travel Within Last 21 Days : No JESSICA DUENAS LPN - 10/12/2014 9:00 INSTRUMENT CALIBRATOR Source: [facility] POWERCHART Document Id: [id number] INSTRUMENT CALIBRATOR!41 RUMENT CALIBRATOR Miscellaneous - Jessica Duenas L.P.NRodrigo - 10/12/2014 8:58 AM CST Health Assessment Health Assessment Entered On: 10/12/2014 9:00 INSTRUMENT CALIBRATOR Performed On: 10/12/2014 8:58 INSTRUMENT CALIBRATOR by JESSICA DUENAS LPN Health Assessment Complete Health Assessment Complete or Modified : Annual Health Assessment Annual Health Assessment Completed : Yes JESSICA DUENAS LPN - 10/12/2014 8:58 INSTRUMENT CALIBRATOR Nutrition Weight Gain Amount : 48 kg Nutrition Risk Factors by History Adult : Unintentional weight loss greater than 10 lbs in last 6 months JESSICA DUENAS [facility] - 10/12/2014 8:58 INSTRUMENT CALIBRATOR Functional Current Daily Living Assistance : None JESSICA DUENAS JUNIOR BUSINESS ANALYST - 10/12/2014 8:58 INSTRUMENT CALIBRATOR Dependent Habits Tobacco Use/Currently Using : No Exposure to Tobacco Smoke : Other: never Smoking Status : Never smoker JESSICA DUENAS JUNIOR BUSINESS ANALYST - 10/12/2014 8:58 INSTRUMENT CALIBRATOR Tobacco Use Grid Other Tobacco Frequency : never JESSICA DUENAS [facility] - 10/12/2014 8:58 INSTRUMENT CALIBRATOR Caffeine Use Grid Caffeine Use : Current Type : Soft drinks Frequency : Daily JESSICA DUENAS [facility] - 10/12/2014 8:58 INSTRUMENT CALIBRATOR Psychosocial Domestic Abuse Concerns : None Oriental Orthodox Preference : No qualifying data available. JESSICA DUENAS [facility] - 10/12/2014 8:58 INSTRUMENT CALIBRATOR Advance Directive Advanced Directives : No Advance Directive Additional Information : No JESSICA DUENAS JUNIOR BUSINESS ANALYST - 10/12/2014 8:58 INSTRUMENT CALIBRATOR Educ Needs Learning Style Preference Adult Grid Patient : Video/Educational TV Family : None JESSICA DUENAS LPN - 10/12/2014 8:58 INSTRUMENT CALIBRATOR Source: [facility] POWERCHART Document Id: [id number] INSTRUMENT CALIBRATOR!31 RUMENT CALIBRATOR documented in this encounter Plan of Treatment Upcoming Encounters Date Type Specialty Care Team Description 10/19/2022 Procedure visit Neurology Marina Winter M.D., M.P.H. [address] [phone] (Wo rk) Scheduled Procedures Name Priority Associated Diagnoses Date/Time LIFT THIGH Excessive And Redundant Skin And Subcutaneous Tissue documented as of this encounter Visit Diagnoses Not on filedocumented in this encounter Additional Health Concerns Assessment Noted Time PHQ-9 Depression Total Score: 10 10/12/2014 10:[address] documented as of this encounter
--- OUTSIDE RECORDS SUMMARY | 2022-09-05 06:13 | XMS_ITS | Encounter Summary ---
:1985 Author Organization [facility] Address [address] [place] [address] Care Team Providers Name Role Phone Unavailable Primary Care Provider Unavailable Encounter Details Date Type Department Care Team Description 12/21/2014 Hospital Encounter [facility]X [facility] Bryson Escobar Jr., M.D. [address] [place], [place] [phone] (Wo rk) Social History [...] How often do you attend yarsani or hoahaoism Never 07/04/2019 services? 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 documented as of this encounter Last Filed Vital Signs Vital Sign Reading Time Taken Comments Blood Pressure 126/70 12/21/2014 10:38 AM TYPESETTER PERFORATOR OPERATOR Pulse 81 12/21/2014 10:38 AM TYPESETTER PERFORATOR OPERATOR Temperature - - Respiratory Rate - - Oxygen Saturation - - Inhaled Oxygen Concentration - - Weight 126 kg (277 lb 12.5 oz) 12/21/2014 10:38 AM TYPESETTER PERFORATOR OPERATOR Height 164 cm (5' 4.57) 12/21/2014 10:38 AM TYPESETTER PERFORATOR OPERATOR Body Mass Index 46.85 12/21/2014 10:38 AM TYPESETTER PERFORATOR OPERATOR documented in this encounter Progress Notes Bryson Hoang Jr., M.D. - 12/21/2014 10:35 AM CST [id number] CHIEF COMPLAINT/REASON FOR VISIT Medication check. HISTORY [...] behalf by April Toribio, a trained medical representative. The creation of this record is basedon the scribe's personal observations and the provider's statements to them. This document has been c hecked and approved by the attending provider. Bryson Hoang M.D./ Electronically Signed By: BRYSON HOANG MD On: 12/21/2014 12:31 PM Source: [facility] MHSDOLBEYNONRADSYS Document Id: [id number] SETTER PERFORATOR OPERATOR documented in this encounter Miscellaneous Notes Telephone [...] spotting. Please advise. From: SANDRA DIETZ ( [employer] Polymerization Supervisor) To: Obstetrics/Gynecology Nurse; Sent: 03/02/2015 10:26:02 CDT [...] A R Please call patient back at [phone] to advise. Advice/Action: Source used: ( ) [...] back cell phone number ( ) Source: [facility] [employer] Document Id: [id number] Miscellaneous - Bryson Hoang Jr., M.D. - 12/21/2014 11:02 AM CST Ambulatory Patient Summary [facility] [address] [place] [phone] Visit Information Name: NANCY ROBINS [facility] Number: [id number] Current Date: 12/21/2014 11:02:36 Physicians [...] and start the next pack Routed to [address] [address] rizatriptan (Maxalt 5 mg oral tablet) 1 [...] appointment detail needed. Your Goals/Additional instructions: Source: [facility] POWERCHART Document Id: [id number] SETTER PERFORATOR OPERATOR Miscellaneous - Bryson Hoang Jr., M.D. - 12/21/2014 11:02 AM CST Ambulatory Discharge Medication List [place] [address] [place] A[place] [phone] Visit Information Name: NANCY ROBINS [facility] Number: [id number] Visit Date: 12/21/2014 11:02:34 Attending [...] and start the next pack Routed to [address] [place] [address] rizatriptan (Maxalt 5 mg oral tablet) 1 [...] MD Signed On:21-DEC-2014 11:02:29 Additional Information: Source: [facility] POWERCHART Document Id: [id number] SETTER PERFORATOR OPERATOR Miscellaneous - Nicki Vaz R.N. - 12/21/2014 10:38 AM CST Adult Hat Block Bench Hand Intake/History Adult Hat Block Bench Hand Intake/History Entered On: 12/21/2014 10:40 TYPESETTER PERFORATOR OPERATOR Performed On: 12/21/2014 10:38 TYPESETTER PERFORATOR OPERATOR by NICKI PAIGE Intake Chief Complaint : [...] : 46.85 kg/m2 NICKI PAIGE 12/21/2014 10:38 TYPESETTER PERFORATOR OPERATOR General Info Languages : Barbadian Is Patient Female and 13-50 no hysterectomy : Yes Status : Patient denies Are you ? : No NICKI PAIGE 12/21/2014 10:38 TYPESETTER PERFORATOR OPERATOR Subjective Pain Symptoms : No NICKI PAIGE 12/21/2014 10:38 TYPESETTER PERFORATOR OPERATOR Dependent Habits Tobacco Use/Currently Using : No Exposure to Tobacco Smoke : Other: never Smoking Status : Never smoker NICKI PAIGE 12/21/2014 10:38 TYPESETTER PERFORATOR OPERATOR Tobacco Use Grid Other Tobacco Frequency : never NICKI PAIGE 12/21/2014 10:38 TYPESETTER PERFORATOR OPERATOR Caffeine Use Grid Caffeine Use : Current Type : Soft drinks Frequency : Daily NICKI PAIGE 12/21/2014 10:38 TYPESETTER PERFORATOR OPERATOR ID Screen Travel Within Last 21 Days : No NICKI PAIGE 12/21/2014 10:38 TYPESETTER PERFORATOR OPERATOR Source: [facility] POWERCHART Document Id: [id number] TYPESETTER PERFORATOR OPERATOR!34 SETTER PERFORATOR OPERATOR documented in this encounter Plan of Treatment Upcoming Encounters Date Type Specialty Care Team Description 10/19/2022 Procedure visit Neurology Marina Winter M.D., M.P.H. [address] [place], [place] [phone] (Wo rk) Scheduled Procedures Name Priority Associated Diagnoses Date/Time LIFT THIGH Excessive And Redundant Skin And Subcutaneous Tissue documented as of this encounter Visit Diagnoses Not on filedocumented in this encounter Additional Health Concerns Assessment Noted Time PHQ-9 Depression Total Score: 10 10/12/2014 10:[address] documented as of this encounter
--- OUTSIDE RECORDS SUMMARY | 2022-09-05 06:13 | XMS_ITS | Encounter Summary ---
:1985 Author Organization [facility] Address [address] [place] [address] Care Team Providers Name Role Phone Unavailable Primary Care Provider Unavailable Encounter Details Date Type Department Care Team Description 02/17/2015 Hospital Encounter HX [facility] FAMILYPRA Nadir Oneal P.A.-C. [address] [place] [phone] (Wo rk) Social History Tobacco Use Types [...] How often do you attend hindu or lutheran Never 07/04/2019 services? 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 - 02/17/2015 2:45 PM CDT [id number] CHIEF COMPLAINT/REASON FOR VISIT Cough. HISTORY OF [...] ONEAL PA-C On: 02/17/2015 04:44 PM Source: [facility] MHSDOLBEYNONRADSYS Document Id: [id number] documented in this encounter Miscellaneous Notes Miscellaneous - Jennifer Oneal P.A.-C. - 02/17/2015 3:56 PM CDT Ambulatory Patient Summary [address] [place], [place] [phone] Visit Information Name: NANCY PHILLIPS [facility] Number: [id number] Current Date: 02/17/2015 15:55:59 [...] appointment detail needed. Your Goals/Additional instructions: Source: [facility] POWERCHART Document Id: [id number] Miscellaneous - Jennifer Oneal P.A.-C. - 02/17/2015 3:55 PM CDT Ambulatory Discharge Medication List [address] [phone] Visit Information Name: NANCY PHILLIPS [facility] Number: [id number] Visit Date: 02/17/2015 15:55:57 [...] PA-C Signed On:17-FEB-2015 15:55:52 Additional Information: Source: [facility] POWERCHART Document Id: [id number] Miscellaneous - Waldo Burnett, LRodrigoP.N. - 02/17/2015 3:14 PM CDT Adult Sourcing Assistant Intake/History Adult Sourcing Assistant Intake/History Entered On: 02/17/2015 15:18 CDT Performed [...] Information Given By : Patient Languages : Gambian Is Patient Female and 13-50 no hysterectomy [...] No WALDO BURNETT 02/17/2015 15:14 CDT Source: [facility] POWERCHART Document Id: [id number] CDT!47 documented in this encounter Plan of Treatment Upcoming Encounters Date Type Specialty Care Team Description 10/19/2022 Procedure visit Neurology Marina Winter M.D., M.P.H. [address] [phone] (Wo rk) Scheduled Procedures Name Priority Associated Diagnoses Date/Time LIFT THIGH Excessive And Redundant Skin And Subcutaneous Tissue documented as of this encounter Visit Diagnoses Not on filedocumented in this encounter Additional Health Concerns Assessment Noted Time PHQ-9 Depression Total Score: 6 02/15/2015 4:18 PM CDT documented as of this encounter
--- OUTSIDE RECORDS SUMMARY | 2022-09-05 06:13 | XMS_ITS | Encounter Summary ---
:1985 Author Organization [facility] Address [address] [place] [address] Care Team Providers Name Role Phone Unavailable Primary Care Provider Unavailable Encounter Details Date Type Department Care Team Description 03/06/2016 Hospital Encounter HX [facility] Meche Montiel M.D. 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 From: VAHID ASH To: COFFEE FARMER Nurse; Sent: 04/04/2016 12:01:40 CDT Subject: Ileana Caller is: ( ) Patient ( ) Mother ( ) Father ( ) Spouse ( ) Daughter ( ) Son ( ) Pharmacy ( ) Other: Physician: Ileana Patient MRN #: Reason for Call: Message: Patient would like to schedule new OB appointments. Please call today [phone], after today call [phone]. Thank you Advice/Action: Source used: ( ) [...] back cell phone number ( ) Source: [facility] POWERCHART Document Id: [id number] Miscellaneous - Luis Armando Oquendo P.A.-C. - 03/07/2016 9:08 AM CDT From: LUIS ARMANDO OQUENDO To: ALAN NANCY JOHNSON Sent: 03/07/2016 09:08:52 CDT Nancy, Your blood test came back negative. Let us know if you have any questions or concerns, Luis Armando Oquendo PA-C Results: Date Result Name Value Ref Range 03/06/2016 16:33 Beta hCG Qnt 4.0 IU/L ( - <=4.9) Source: [facility] [employer] Document Id: [id number] Electronically signed by Conversion, [facility] Science Education Professor [id number] at 03/31/2017 1:41 PM CDT Miscellaneous - [...] going well, Luis Armando Oquendo PA-C Source: [facility] [employer] Document Id: [id number] Electronically signed by Conversion, [facility] Science Education Professor [id number] at 03/31/2017 1:41 PM CDT Bunny - Annemarie Montiel M.D. - 03/06/2016 1:41 PM CDT Results Notification Document Contains Addenda Addendum by ANNEMARIE MONTIEL MD on March 07, 2016 18:26:24 CDT Luis Armando Oquendo addressed for pt today. Addendum by JESSICA CRISTOBAL on March 06, 2016 13:47:23 CDT From: JESSICA CRISTOBAL ([facility] 2W Nurse) To: ANNEMARIE MONTIEL MD; [...] Please advise From: ANNEMARIE MONTIEL MD To: [facility] 2W Nurse; Sent: 03/06/2016 13:41:11 CDT ! Show up: 03/06/2016 13:41:11 CDT Subject: Results Notification Actions: Notify patient of results Reminder Comments: test is negative Results: Date Result Name Value 03/06/2016 12:06 U Beta-hCG Ql Negative Source: [facility] POWERCHART Document Id: [id number] Electronically signed by Conversion, [facility] Science Education Professor [id number] at 03/31/2017 1:41 PM CDT Telephone Encounter - Conversion, Historical Provider Ser - 03/06/2016 1:39 PM CDT *Phone Message-[employer] Document Contains Addenda Addendum by JAYLENE CASANOVA CMA on March 06, 2016 16:36:20 CDT Order has been placed by LUIS ARMANDO OQUENDO PAC . See recent note in chart From: MARC[facility]LEGRIA [facility] heat pump technician [facility]) To: [facility] 2W Nurse; Sent: 03/06/2016 13:39:17 CDT Subject: *Phone Message-[employer] Caller is: ( x ) Patient ( [...] the blood test. Please call her at [phone] Advice/Action: Source used: ( ) Verbalizes understanding [...] back cell phone number ( ) Source: [facility] POWERCHART Document Id: [id number] documented in this encounter Plan of Treatment Upcoming Encounters Date Type Specialty Care Team Description 10/19/2022 Procedure visit Neurology Marina Winter M.D., M.P.H. [address] [phone] (Wo rk) Scheduled [...] Test, Qualitative, Urine (03/06/2016 12:06 PM CDT) [facility] gist Method Time Signature HXBeta-hCG [...]
--- OUTSIDE RECORDS SUMMARY | 2022-09-05 06:13 | XMS_ITS | Encounter Summary ---
:1985 Author Organization [facility] Address [address] [place] [address] Care Team Providers Name Role Phone Unavailable Primary Care Provider Unavailable Encounter Details Date Type Department Care Team Description 05/12/2015 Hospital Encounter HX [facility] Meche Montiel M.D. [address] [place] [phone] (Wo rk) Social History Tobacco Use Types [...] How often do you attend caodaism or pentecostalism Never 07/04/2019 services? 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 - 05/12/2015 4:21 PM CDT [id number] CHIEF COMPLAINT / REASON FOR VISIT ER [...] weeks I recommend a referral to the [facility]. This document serves as a record of services personally performed by Annemarie Montiel MD. It was created on their behalf by Carolina Butt, a trained medical translator. The creation of this record is based on the scribe's personal observations and the provider's statements to them. This document has been ch ecked and approved by the attending provider. Annemarie Montiel M.D./maribel Electronically Signed By: ANNEMARIE MONTIEL MD On: 05/30/2015 02:44 PM Source: [facility] MHSDOLBEYNONRADSYS Document Id: [id number] documented in this encounter Miscellaneous Notes Miscellaneous - Annemarie Montiel M.D. - 05/12/2015 6:17 PM CDT Ambulatory Patient Summary [facility] [address] [place], [place] [phone] Visit Information Name: NANCY PHILLIPS [facility] Number: [id number] Current Date: 05/12/2015 18:17:28 Physicians [...] Tablet(s), Oral, once a day New [facility] [address] [place] [address] hydrOXYzine (Vistaril 25 mg oral capsule) 1 cap, Oral, four times a day as needed for Migraine headache meclizine (meclizine 25 mg oral tablet) 1 Tablet(s), Oral, three times a day as needed for DizzinessNew Routed to [facility] [address] [place] [address] naproxen (Naprosyn 500 mg oral [...] if you dont have one. Go to [email or web address] and click on Create Your Account. Then, follow the directions to complete the online form. Youll be asked for your [facility] number which you can find at the top of this document. Your Goals/Additional instructions: Source: [facility] POWERCHART Document Id: [id number] Miscellaneous - Annemarie Montiel M.D. - 05/12/2015 6:17 PM CDT Ambulatory Discharge Medication List [facility] [address] [place] [phone] Visit Information Name: NANCY PHILLIPS [facility] Number: [id number] Visit Date: 05/12/2015 18:17:26 Attending [...] Tablet(s), Oral, once a day New Routedto [facility] [address] [place], [place] [id number] hydrOXYzine (Vistaril 25 mg oral capsule) 1 cap, Oral, four times a day as needed for Migraine headache meclizine (meclizine 25 mg oral tablet) 1 Tablet(s), Oral, three times a day as needed for DizzinessNew Routed to [facility] [address] [place] [address] naproxen (Naprosyn 500 mg oral [...] MD Signed On:12-MAY-2015 18:17:10 Additional Information: Source: [facility] POWERCHART Document Id: [id number] Miscellaneous - Ovalles, Claryssa E, L.P.N. - 05/12/2015 5:08 PM CDT Adult Refining Engineer Intake/History Adult Refining Engineer Intake/History Entered On: 05/12/2015 17:16 CDT Performed [...] Preferred Communication Mode : Verbal Languages : Indonesian Is Patient Female and 13-50 no hysterectomy [...] OVALLES LPN - 05/12/2015 17:08 CDT Source: [employer] POWERCHART Document Id: [id number] CDT!33 documented in this encounter Plan of Treatment Upcoming Encounters Date Type Specialty Care Team Description 10/19/2022 Procedure visit Neurology Marina Winter M.D., M.P.H. [address], [place] [phone] (Wo rk) Scheduled Procedures Name Priority Associated Diagnoses Date/Time LIFT THIGH Excessive And Redundant Skin And Subcutaneous Tissue documented as of this encounter Visit Diagnoses Not on filedocumented in this encounter Additional Health Concerns Assessment Noted Time PHQ-9 Depression Total Score: 6 02/15/2015 4:18 PM CDT documented as of this encounter
--- OUTSIDE RECORDS SUMMARY | 2022-09-05 06:13 | XMS_ITS | Encounter Summary ---
:1985 Author Organization [facility] Address [address] [place] [address] Care Team Providers Name Role Phone Unavailable Primary Care Provider Unavailable Encounter Details Date Type Department Care Team Description 04/07/2016 Hospital Encounter HX NO MAPPING Nahun Tejeda M.D. [address] [place], [place] [phone] (Wo rk) Social History [...] How often do you attend bahai or mosque Never 07/04/2019 services? 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 [address] [phone] (Wo rk) Scheduled Procedures Name Priority Associated Diagnoses Date/Time LIFT THIGH Excessive And Redundant Skin And Subcutaneous Tissue documented as of this encounter Visit Diagnoses Not on filedocumented in this encounter Additional Health Concerns Assessment Noted Time PHQ-9 Depression Total Score: 13 06/14/2015 3:56 PM CD T documented as of this encounter
--- OUTSIDE RECORDS SUMMARY | 2022-09-05 06:13 | XMS_ITS | Encounter Summary ---
:1985 Author Organization [facility] Address [address] [place] [address] Care Team Providers Name Role Phone Unavailable [...] How often do you attend druze or methodist Never 07/04/2019 services? 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 [address] [phone] (Wo rk) Scheduled Procedures Name Priority Associated Diagnoses Date/Time LIFT THIGH Excessive And Redundant Skin And Subcutaneous Tissue documented as of this encounter Visit Diagnoses Not on filedocumented in this encounter Additional Health Concerns Assessment Noted Time PHQ-9 Depression Total Score: 6 02/15/2015 4:18 PM CDT documented as of this encounter
--- OUTSIDE RECORDS SUMMARY | 2022-09-05 06:13 | XMS_ITS | Encounter Summary ---
:1985 Author Organization [facility] Address [address] [place] [address] Care Team Providers Name Role Phone Unavailable Primary Care Provider Unavailable Encounter Details Date Type Department Care Team Description 11/04/2014 Hospital Encounter HX [facility] FAMILYPRA GrandLizandro simon, P.ARodrigo-Nadya [address] [place], [place] [phone] (Wo rk) Social History Tobacco Use Types [...] How often do you attend protestant or buddhist Never 07/04/2019 services? 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 - 11/04/2014 10:28 AM CST [id number] CHIEF COMPLAINT/REASON FOR VISIT Preventative health maintenance well-woman exam. HISTORY OF PRESENT ILLNESS Nancy is a 29-year-old female, here today for preventative health maintenance/well-woman exam. Toshiahas struggled with weight issues and obesity for quite some time. She actually is meeting with [facility] in November to discuss options for bariatric [...] She is scheduled for consultation visit with [facility] to further [...] MINOR PA-C On: 11/11/2014 06:29 PM Source: [facility] MHSDOLBEYNONRADSYS Document Id: [id number] M MANAGER documented in this encounter Miscellaneous Notes Telephone Encounter - Conversion, Historical Provider Ser - 05/06/2015 9:22 AM CDT *Phone Message- Jenae Minor Document Contains Addenda Addendum by TAWNYA CHAVES on 06 May 2015 10:34:02 CDT Patient was transferred to scheduling to make a follow up ER appt. for vertigo. From: BRENT AGUILAR To: JACEY KUMARlap maker [facility]; Sent: 05/06/2015 09:22:22 CDT Subject: *Phone Message- Jenae Minor Caller is: ( x) Patient ( ) Mother ( ) Father ( ) Spouse ( ) Daughter ( ) Son ( ) Pharmacy ( ) Other: Physician: Jenae Minro Patient MRN #: Reason for Call: Message: S: Pt called clinic to talk to nurse B: not improving recent ER visit A: R: Please call pt at [phone] Advice/Action: Source used: ( ) Verbalizes understanding [...] back cell phone number ( ) Source: [employer] Document Id: [id number] Bunny - Jenae Minor P.A.-Lexy., P.A. - 11/06/2014 5:24 PM CLAIM MANAGER Results Notification Document Contains Addenda Addendum by OTIS ROBERT LPN on 09 November 2014 17:36:04 CLAIM MANAGER Patient notified of results. From: JENAE MINOR PA-C To: JACEY Minor Nurse; Sent: 11/06/2014 17:24:12 CLAIM MANAGER ! Show up: 11/06/2014 17:24:12 CLAIM MANAGER Subject: Results Notification Actions: Notify patient of results Reminder Comments: Neg GC/Chlam Results: Date Result Name Value Ref Range 11/04/2014 12:24 C trach Amp Src-[facility] URINE 11/04/2014 12:24 C trach Amp RNA-[facility] Negative (Negative - ) 11/04/2014 12:24 N gonor Amp DNA-[facility] Negative (Negative - ) 11/04/2014 12:24 N gonor Amp Src-[facility] URINE Source: [email or web address] Document Id: [id number] Electronically signed by Conversion, [facility] Money Laundering Investigator [id number] at 04/03/2017 4:39 PM CDT Miscellaneous - Jenae Minor P.A.-C., P.A. - 11/04/2014 1:19 PM CLAIM MANAGER Ambulatory Patient Summary [facility] [address] [place] [phone] Visit Information Name: NANCY ROBINS [facility] Number: [id number] Current Date: 11/04/2014 13:19:29 Physicians [...] headache Routed to [facility] [address] [place] [address] naproxen (Naprosyn 500 mg oral tablet) 1 Tablet(s), Oral, two times a day with meals as needed for pain and headaches will call when refill needed Routed to [facility] [address] [place] [address] norgestimate-ethinyl estradiol (Ortho-Cyclen 0.25 mg-35 mcg oral tablet) 1 Tablet(s), Oral, once a day take 21 days of active tablets then skip placebos and start the next pack rizatriptan (Maxalt 5 mg oral tablet) 1 Tablet(s), Oral, once a day as needed for Migraine headache may repeat dose once in 2 hours New Routed to [facility] [address] [place] [address] venlafaxine (Effexor XR 75 mg oral capsule, extended release) 1 cap, Oral, once a day for anxiety/depression This is a CHANGE Routed to [facility] [address] [place] [address] Stop Taking the Following Medications: Medication list [...] appointment detail needed. Your Goals/Additional instructions: Source: [facility] POWERCHART Document Id: [id number] M MANAGER Miscellaneous - Jenae Minor P.A.-C., P.A. - 11/04/2014 1:19 PM CLAIM MANAGER Ambulatory Discharge Medication List [facility] [address] [place], [place] [phone] Visit Information Name: NANCY ROBINS [facility] Number: [id number] Visit Date: 11/04/2014 13:19:28 Attending [...] as needed for Migraine headache Routed to [facility] [address] [place] [address] naproxen (Naprosyn 500 mg oral tablet) 1 Tablet(s), Oral, two times a day with meals as needed for pain and headaches will call when refill needed Routed to [facility] [address] [place] [address] norgestimate-ethinyl estradiol (Ortho-Cyclen 0.25 mg-35 mcg oral tablet) 1 Tablet(s), Oral, once a day take 21 days of active tablets then skip placebos and start the next pack rizatriptan (Maxalt 5 mg oral tablet) 1 Tablet(s), Oral, once a day as needed for Migraine headache may repeat dose once in 2 hours New Routed to [facility] [address] [place] [address] venlafaxine (Effexor XR 75 mg oral capsule, extended release) 1 cap, Oral, once a day for anxiety/depression This is a CHANGE Routed to [facility] [address] [address] [place] [address] Stop Taking the Following Medications: Medication list [...] PA-C Signed On:04-NOV-2014 13:18:24 Additional Information: Source: [facility] POWERCHART Document Id: [id number] M MANAGER Miscellaneous - Clifford Ovalles L.P.N. - 11/04/2014 10:36 AM CST Adult Survey Analyst Intake/History Adult Survey Analyst Intake/History Entered On: 11/04/2014 10:39 CLAIM MANAGER Performed On: 11/04/2014 10:36 CLAIM MANAGER by CLIFFORD OVALLES LPN Intake Chief Complaint [...] kg/m2 CLIFFORD OVALLES LPN - 11/04/2014 10:36 CLAIM MANAGER General Info Information Given By : Patient Preferred Communication Mode : Verbal Languages : South Korean Is Patient Female and 13-50 no hysterectomy : Yes Status : Patient denies Are you ? : No CLIFFORD OVALLES LPN - 11/04/2014 10:36 CLAIM MANAGER Subjective Pain Symptoms : No CLIFFORD OVALLES LPN - 11/04/2014 10:36 CLAIM MANAGER Dependent Habits Tobacco Use/Currently Using : No Exposure to Tobacco Smoke : Other: never Smoking Status : Never smoker CLIFFORD OVALLES LPN - 11/04/2014 10:36 CLAIM MANAGER Tobacco Use Grid Other Tobacco Frequency : never CLIFFORD OVALLES LPN - 11/04/2014 10:36 CLAIM MANAGER Caffeine Use Grid Caffeine Use : Current Type : Soft drinks Frequency : Daily CLIFFORD OVALLES LPN - 11/04/2014 10:36 CLAIM MANAGER ID Screen Travel Within Last 21 Days : No CLIFFORD OVALLES LPN - 11/04/2014 10:36 CLAIM MANAGER [facility] POWER[facility] Document Id: [id number] CLAIM MANAGER!42 M MANAGER documented in this encounter Plan of Treatment Upcoming Encounters Date Type Specialty Care Team Description 10/19/2022 Procedure visit Neurology Marina Winter M.D., M.P.H. [address] [place] [phone] (Wo rk) Scheduled Procedures Name Priority Associated Diagnoses Date/Time LIFT THIGH Excessive And Redundant Skin And Subcutaneous Tissue documented as of this encounter Procedures Procedure Name Priority Date/Time Associated Diagnosis Comme nts N GONOR AMP SRC Routine 11/04/2014 12:24 PM Resul ts for this CLAIM MANAGER procedure are i n the results section. N GONOR AMP DNA Routine 11/04/2014 12:24 PM Resul ts for this CLAIM MANAGER procedure are i n the results section. C TRACH AMP SRC Routine 11/04/2014 12:24 PM Resul ts for this CLAIM MANAGER procedure are i n the results section. C TRACH AMP RNA Routine 11/04/2014 12:24 PM Resul ts for this CLAIM MANAGER procedure are i n the results section. documented in this encounter Results HX-N gonor Amp DNA (11/04/2014 12:24 PM CLAIM MANAGER) athologist Signature HXN gonor Amp Negative POWERCHART DNA-[facility] Specimen (Source) Anatomical Collection Method Collection Time Re ceived Time Location / / Volume Laterality 11/04/2014 12:24 PM CLAIM MANAGER Narrative POWERCHART - 11/06/2014 4:53 PM CLAIM MANAGER Test Performed by: [address] [address] Tin Container Straightener: Sharif Reece Jenae Minor P.A.-C. LAB HISTORICAL ORDERS Performing Organization Address City/State/ZIP Code Phon e Number POWERCHART HX-N gonor Amp Src (11/04/2014 12:24 PM CLAIM MANAGER) athologist Signature HXN gonor Amp URINE POWERCHART Src-[facility] Specimen (Source) Anatomical Collection Method Collection Time Re ceived Time Location / / Volume Laterality 11/04/2014 12:24 PM CLAIM MANAGER Jenae MedellinCRodrigo LAB HISTORICAL ORDERS Performing Organization Address City/State/ZIP Code Phon e Number POWERCHART HX-C trach Amp RNA (11/04/2014 12:24 PM CLAIM MANAGER) Patholo gist Method Time Signature Chlamydia Negative POWERCHART trachomatis amplified RNA Specimen (Source) Anatomical Collection Method Collection Time Re ceived Time Location / / Volume Laterality 11/04/2014 12:24 PM CLAIM MANAGER Jenae Minor P.A.-C. LAB HISTORICAL ORDERS Performing Organization Address City/[facility] Code Phon e Number POWERCHART HX-C trach Amp Src (11/04/2014 12:24 PM CLAIM MANAGER) P athologist Signature HXC trach Amp URINE POWERCHART Src-[facility] Specimen (Source) Anatomical Collection Method Collection Time Re ceived Time Location / / Volume Laterality 11/04/2014 12:24 PM CLAIM MANAGER Jenae Minor P.A.-C. LAB HISTORICAL ORDERS Performing Organization Address City/[facility] Phon e Number POWERCHART documented in this encounter Visit Diagnoses Not on filedocumented in this encounter Additional Health Concerns Assessment Noted Time PHQ-9 Depression Total Score: 10 10/12/2014 10:[address] documented as of this encounter
--- OUTSIDE RECORDS SUMMARY | 2022-09-05 06:13 | XMS_ITS | Encounter Summary ---
:1985 Author Organization [facility] Address [address] [place] [address] Care Team Providers Name Role Phone Unavailable Primary Care Provider Unavailable Encounter Details Date Type Department Care Team Description 10/08/2014 Hospital Encounter [facility]X [facility] Bryson Escobar Jr., M.D. [address] [place], [place] [phone] (Wo rk) Social History [...] How often do you attend adventism or confucianist Never 07/04/2019 services? 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 - 10/08/2014 8:28 AM CST [id number] CHIEF COMPLAINT/REASON FOR VISIT Nexplanon removal and [...] their behalf by Amanda Smith, a trained site medical director. The creation of this record is based on the scribe's personal observations and the provider's statements to them. This document has been ch ecked and approved by the attending provider. Bryson Hoang M.D./joselito Electronically Signed By: BRYSON HOANG MD On: 10/08/2014 11:32 AM Source: [facility] MHSDOLBEYNONRADSYS Document Id: [id number] PICU Bryson Hoang Jr., M.D. - 10/08/2014 8:28 AM CST [id number] CHIEF COMPLAINT/REASON FOR VISIT Nexplanon removal. IMPRESSION/REPORT/PLAN [...] was created on their behalf by Amanda Smiht, a trained site medical director. The creation of this record is based on the scribe's personal observations and the provider's statements to them. This document has been ch ecked and approved by the attending provider. Bryson Hoang M.D./joselito Electronically Signed By: BRYSON HOANG MD On: 10/08/2014 04:00 PM Source: [facility] MHSDOLBEYNONRADSYS Document Id: [id number] PICU documented in this encounter Miscellaneous Notes Miscellaneous - Bryson Hoang Jr., M.D. - 10/08/2014 8:44 AM CST Ambulatory Patient Summary [facility] [address] [place] [id number] Visit Information Name: NANCY ROBINS [facility] Number: [id number] Current Date: 10/08/2014 08:44:23 Physicians [...] start the next pack New Routed to [address] [place], [place] [id number] Stop Taking the Following Medications: etonogestrel (Nexplanon [...] Appointments Date Time Location Provider 10/12/2014 09:15 [facility] Griselda Mckeon PA-C 11/04/2014 10:45 [facility] Lexii Stein Attention: Contact your local Clinic if further appointment detail needed. Your Goals/Additional instructions: Source: [facility] POWERCHART Document Id: [id number] PICU Miscellaneous - Bryson Hoang Jr., M.D. - 10/08/2014 8:44 AM CST Ambulatory Discharge Medication List [facility] [address] [place], [place] [id number] Visit Information Name: NANCY ROBINS [facility] Number: [id number] Visit Date: 10/08/2014 08:44:22 Attending [...] start the next pack New Routed to [address] [place] [address] Stop Taking the Following Medications: etonogestrel (Nexplanon [...] MD Signed On:08-OCT-2014 08:44:18 Additional Information: Source: [facility] POWERCHART Document Id: [id number] PICU Miscellaneous - Nicki Vaz, RRodrigoN. - 10/08/2014 8:31 AM CST Adult Energy Advisor Intake/History Adult Energy Advisor Intake/History Entered On: 10/08/2014 8:33 RN PICU Performed On: 10/08/2014 8:31 RN PICU by NICKI PAIGE Intake Chief Complaint : [...] 45.69 kg/m2 NICKI PAIGE - 10/08/2014 8:31 RN PICU General Info Languages : Mauritanian Is Patient Female and 13-50 no hysterectomy : Yes Status : Patient denies Are you ? : No NICKI PAIGE - 10/08/2014 8:31 RN PICU Subjective Pain Symptoms : No NICKI PAIGE - 10/08/2014 8:31 RN PICU Dependent Habits Tobacco Use/Currently Using : No Exposure to Tobacco Smoke : Other: never Smoking Status : Never smoker NICKI PAIGE - 10/08/2014 8:31 RN PICU Tobacco Use Grid Other Tobacco Frequency : never NICKI PAIGE - 10/08/2014 8:31 RN PICU Caffeine Use Grid Caffeine Use : Current Type : Soft drinks Frequency : Daily NICKI PAIGE - 10/08/2014 8:31 RN PICU ID Screen Travel Within Last 21 Days : No NICKI PAIGE - 10/08/2014 8:31 RN PICU [facility] Document Id: [id number] RN PICU!36 PICU documented in this encounter Plan of Treatment Upcoming Encounters Date Type Specialty Care Team Description 10/19/2022 Procedure visit Neurology Marina Winter M.D., M.P.H. [address] [phone] (Wo rk) Scheduled Procedures Name Priority Associated Diagnoses Date/Time LIFT THIGH Excessive And Redundant Skin And Subcutaneous Tissue documented as of this encounter Visit Diagnoses Not on filedocumented in this encounter Additional Health Concerns Assessment Noted Time PHQ-9 Depression Total Score: 5 02/18/2014 10:07 AM CD T documented as of this encounter
--- OUTSIDE RECORDS SUMMARY | 2022-09-05 06:13 | XMS_ITS | Encounter Summary ---
:1985 Author Organization [facility] Address [address] [place] [address] Care Team Providers Name Role Phone Unavailable Primary Care Provider Unavailable Encounter Details Date Type Department Care Team Description 02/15/2015 Hospital Encounter HX [facility] Cedrcik Lobo M.D. [address] [place], [place] [address] (Wo rk) Social History [...] How often do you attend pentecostalism or christian Never 07/04/2019 services? 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 - 02/15/2015 3:39 PM CDT [id number] A 29-year-old female with 2-day history of cough and chest discomfort, which provokes cough upon deep inspiration. Her was ill with a bronchitis a month ago. She has a young child with mild respiratory illness currently. 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 She is a nonsmoker. She does [...] LOBO MD On: 02/16/2015 08:05 AM Source: [facility] MHSDOLBEYNONRADSYS Document Id: [id number] documented in this encounter Nursing Notes Jules [...] be told to take ibuprofen or other eoot-kpj-dwaoipl medications. These help relieve inflammation in your [...] within 3 days of taking antibiotics ?? [phone] [place] [address]. All rights reserved. This information is not intended as a substitute for professional medical care. Always follow your healthcare professional's instructions. This document has images extracted. Please consider using [employer] for all your patient education needs. Source: [facility] POWERCHART Document Id: [id number] Jules Lobo M.D. - 02/15/2015 3:53 PM [...] be told to take ibuprofen or other gqzd-olx-znkvlxd medications. These help relieve inflammation in your [...] within 3 days of taking antibiotics ?? [phone] [facility], [address] [place] [address], [place] [address]. All rights reserved. This information is not intended as a substitute for professional medical care. Always follow your healthcare professional's instructions. This document has images extracted. Please consider using [employer] for all your patient education needs. Source: [employer] Document Id: [id number] documented in this encounter Miscellaneous Notes Miscellaneous [...] APRIL MISHRA - 02/15/2015 16:18 CDT Source: [employer] Document Id: [id number] CDT!13 Miscellaneous - Jules Lobo M.D. - 02/15/2015 3:53 PM CDT Ambulatory Patient Summary [address] [id number] Visit Information Name: NANCY PHILLIPS [facility] Number: [id number] Current Date: 02/15/2015 15:53:40 [...] directed x 5 day(s) New Routed to [address] [address] hydrOXYzine (Vistaril 25 mg oral capsule) 1 [...] be told to take ibuprofen or other wnzy-fio-utedbeo medications. These help relieve inflammation in your [...] within 3 days of taking antibiotics ?? [phone] [facility], [address] [place] [address]. All rights reserved. This information is not intended as a substitute for professional medical care. Always follow your healthcare professional's instructions. Your Goals/Additional instructions: This document has images extracted. Please consider using [employer] for all your patient education needs. Source: [facility] POWERCHART Document Id: [id number] Miscellaneous - Jules Lobo M.D. - 02/15/2015 3:53 PM CDT Ambulatory Discharge Medication List [place] [id number] [place], [place] [phone] Visit Information Name: NANCY PHILLIPS [facility] Number: [id number] Visit Date: 02/15/2015 15:53:38 [...] directed x 5 day(s) New Routed to [address] [address] hydrOXYzine (Vistaril 25 mg oral capsule) 1 [...] MD Signed On:15-FEB-2015 15:53:19 Additional Information: Source: [facility] POWERCHART Document Id: [id number] Miscellaneous - April Mishra L.PRodrigoNRodrigo - 02/15/2015 3:42 PM CDT Adult Fitness Consultant Intake/History Adult Fitness Consultant Intake/History Entered On: 02/15/2015 15:45 CDT Performed [...] Preferred Communication Mode : Verbal Languages : Kosovan Is Patient Female and 13-50 no hysterectomy [...] APRIL MISHRA - 02/15/2015 15:42 CDT Source: [employer] Document Id: [id number] CDT!48 documented in this encounter Plan of Treatment Upcoming Encounters Date Type Specialty Care Team Description 10/19/2022 Procedure visit Neurology Marina Winter M.D., M.P.H. [address] [phone] (Wo rk) Scheduled Procedures Name Priority Associated Diagnoses Date/Time LIFT THIGH Excessive And Redundant Skin And Subcutaneous Tissue documented as of this encounter Visit Diagnoses Not on filedocumented in this encounter Additional Health Concerns Assessment Noted Time PHQ-9 Depression Total Score: 6 02/15/2015 4:18 PM CDT documented as of this encounter
--- OUTSIDE RECORDS SUMMARY | 2022-09-05 06:13 | XMS_ITS | Encounter Summary ---
:[address] [facility] Address [address] [place] [address] Care Team Providers Name Role Phone Unavailable Primary Care Provider Unavailable Encounter Details Date Type Department Care Team Description 12/19/2015 Hospital Encounter HX NO MAPPING Ajit Duncan M.D. [address] [place], [place] [phone] (Wo rk) Social History [...] How often do you attend holiness or caodaism Never 07/04/2019 services? 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 [address] [place] [phone] (Wo rk) Scheduled Procedures Name Priority Associated Diagnoses Date/Time LIFT THIGH Excessive And Redundant Skin And Subcutaneous Tissue documented as of this encounter Procedures Procedure Name Priority Date/Time Associated Diagnosis Comme nts DX CHEST AP OR PA Routine 12/19/2015 7:36 PM Resu lts for this AND LATERAL 2 VIEWS PURCHASING AND CLAIMS SUPERVISOR procedur e are in the results section. documented in this encounter Results DX Chest Anterior Posterior or Posterior Anterior and Lateral 2 Views (12/19/2015 7:36 PM PURCHASING AND CLAIMS SUPERVISOR) Anatomical Region Laterality Modality Chest N/A Radiographic Imaging Specimen (Source) Anatomical Collection Method Collection Time Re ceived Time Location / / Volume Laterality 12/19/2015 7:36 PM PURCHASING AND CLAIMS SUPERVISOR Addenda Addendum by ProviderJosh M.D. o n 12/19/2015 7:36 PM PURCHASING AND CLAIMS SUPERVISOR RAD^^^OW XR Chest 2 Views 12/19/2015 19:36:52 Impressions 12/20/2015 8:51 AM PURCHASING AND CLAIMS SUPERVISOR Negative. Narrative 12/20/2015 8:51 AM PURCHASING AND CLAIMS SUPERVISOR EXAM: XR Chest 2 Views INDICATION: cough, sore throat, fever AGE: 30 years-old COMPARISON: None. FINDINGS: Normal heart size. ??Lungs are clear. Procedure Note Dilshad Faustin M.D. / ProviderJosh M.D. - 03/09/2017 EXAM: XR Chest 2 Views INDICATION: cough, sore throat, fever AGE: 30 years-old COMPARISON: None. FINDINGS: Normal heart size. Lungs are c lear. IMPRESSION: Negative. Mariella Martin(Zulema) [facility] DIAGNOSTIC IMAGING PROC EDURES documented in this encounter Visit Diagnoses Not on filedocumented in this encounter Additional Health Concerns Assessment Noted Time PHQ-9 Depression Total Score: 13 06/14/2015 3:56 PM CD T documented as of this encounter
--- OUTSIDE RECORDS SUMMARY | 2022-09-05 06:13 | XMS_ITS | Encounter Summary ---
:1985 Author Organization [facility] Address [address] [place] [address] Care Team Providers Name Role Phone Unavailable [...] How often do you attend christianity or voodoo Never 07/04/2019 services? Do you [...] at Date Recorded Female 10/16/2018 10:53 AM PAVING BLOCK CUTTER documented as of this encounter Last Filed Vital Signs Vital Sign Reading Time Taken Comments Blood Pressure 128/88 10/18/2015 10:37 AM PAVING BLOCK CUTTER Pulse 84 10/18/2015 10:37 AM PAVING BLOCK CUTTER Temperature - - Respiratory Rate 18 10/18/2015 10:37 AM PAVING BLOCK CUTTER Oxygen Saturation - - Inhaled Oxygen Concentration - - Weight 136 kg (298 lb 15.1 oz) 10/18/2015 10:37 AM PAVING BLOCK CUTTER Height 164 cm (5' 4.57) 10/18/2015 10:12 AM PAVING BLOCK CUTTER Body Mass Index 50.42 10/18/2015 10:12 AM PAVING BLOCK CUTTER documented in this encounter Progress Notes Pierre Bangura M.D. - 10/18/2015 10:11 AM CST [id number] CHIEF COMPLAINT/REASON FOR VISIT test, STD screening. [...] BANGURA MD On: 10/18/2015 05:23 PM Source: [facility] MHSDOLBEYNONSNADEESYS Document Id: [id number] NG BLOCK CUTTER documented in this encounter Miscellaneous Notes Miscellaneous - Pierre Bangura M.D. - 10/20/2015 8:35 AM CST From: PIERRE BANGURA MD To: NANCY PHILLIPSE Sent: 10/20/2015 08:35:49 PAVING BLOCK CUTTER I am pleased to report that your results from the following diagnostic test(s) are normal hepatitis c screen. If you have questions or concerns, please do not hesitate to call our office. Results: Date Result Name Value Ref Range 10/18/2015 11:43 HepC RNA PCR [facility] Undetected IntU/ml (Undetected - ) Source: [facility] POWERCHART Document Id: [id number] Miscellaneous - Pierre Bangura M.D. - 10/19/2015 9:00 PM CST From: PIERRE BANGURA MD To: NANCY PHILLIPS Sent: 10/19/2015 21:00:27 PAVING BLOCK CUTTER I am pleased to report that your results from the following diagnostic test(s) are normal - gonorrhea and chlamydia. If you have questions or concerns, please do not hesitate to call our office. Source: [facility] [employer] Document Id: [id number] Pierre Shea M.D. - 10/19/2015 8:57 PM CST From: PIERRE BANGURA MD To: NANCY PHILLIPS Sent: 10/19/2015 20:57:15 PAVING BLOCK CUTTER I am pleased to report that your results from the following diagnostic test(s) are normal - urine culture. If you have questions or concerns, please do not hesitate to call our office. Source: [employer] Document Id: [id number] Electronically signed by Conversion, [facility] Compliance Advisor [id number] at 04/02/2017 5:51 PM CDT Pierre Shea M.D. - 10/19/2015 9:04 AM CST From: PIERRE BANGURA MD To: NANCY PHILLIPS Sent: 10/19/2015 09:04:41 PAVING BLOCK CUTTER I am pleased to report that your results from the following diagnostic test(s) are normal. If you have questions or concerns, please do not hesitate to call our office. Results: Date Result Name Value Ref Range 10/18/2015 11:43 HIV 1/2 Ab and Ag [facility] Negative (Negative - ) [facility] Document Id: [id number] Pierre Shea M.D. - 10/19/2015 8:01 AM CST From: PIERRE BANGURA MD To: NANCY PHILLIPS Sent: 10/19/2015 08:01:11 PAVING BLOCK CUTTER I am pleased to report that your results from the following diagnostic test(s) are normal. If you have questions or concerns, please do not hesitate to call our office. Results: Date Result Name Value 10/18/2015 11:43 Hep Bs Ag Interp Negative Source: [facility] POWERCHART Document Id: [id number] Pierre Shea M.D. - 10/18/2015 1:46 PM CST From: PIERRE BANGURA MD ( Same Day Provider) To: NANCY PHILLIPS Sent: 10/18/2015 13:46:35 PAVING BLOCK CUTTER I am pleased to report that your results from the following diagnostic test(s) are normal - right hand x ray. If you have questions or concerns, please do not hesitate to call our office. Source: [facility] POWERCHART Document Id: [id number] Bunny - Pierre Bangura M.D. - 10/18/2015 10:57 AM CST Ambulatory Patient Summary [facility] [address] [place] [id number] Visit Information Name: NANCY PHILLIPS [facility] Number: [id number] Current Date: 10/18/2015 10:57:49 Physicians Attending Provider: PIERRE BANGURA MD Primary Care Provider: LEXII MINOR PA-C NANCY PHILLIPS ELIZABETH has been given the [...] if you dont have one. Go to [email or web address] and click on Create Your Account. Then, follow the directions to complete the online form. Youll be asked for your [facility] number which you can find at the top of this document. Your Goals/Additional instructions: Source: [facility] POWERCHART Document Id: [id number] NG BLOCK CUTTER Miscellaneous - Pierre Bangura M.D. - 10/18/2015 10:57 AM CST Ambulatory Discharge Medication List [facility] [address] [place] [address] [id number] Visit Information Name: NANCY PHILLIPS [facility] Number: [id number] Visit Date: 10/18/2015 10:57:47 [...] MD Signed On:18-OCT-2015 10:57:43 Additional Information: Source: [facility] POWERCHART Document Id: [id number] NG BLOCK CUTTER Miscellaneous - Mago Giordano RRodrigoNRodrigo - 10/18/2015 10:37 AM CST Adult Equity Director Intake/History Adult Equity Director Intake/History Entered On: 10/18/2015 10:40 PAVING BLOCK CUTTER Performed On: 10/18/2015 10:37 PAVING BLOCK CUTTER by MAGO GIORDANO LPN Intake Chief Complaint [...] kg MAGO GIORDANO LPN - 10/18/2015 10:37 PAVING BLOCK CUTTER General Info Information Given By : Patient Preferred Communication Mode : Verbal Languages : Faroese Is Patient Female and 13-50 no hysterectomy : Yes Status : Possible unconfirmed Are you ? : No MAGO GIORDANO [facility] - 10/18/2015 10:37 PAVING BLOCK CUTTER Subjective Pain Symptoms : No MAGO GIORDANO [facility] - 10/18/2015 10:37 PAVING BLOCK CUTTER Dependent Habits Exposure to Tobacco Smoke : Other: never Smoking Status : Never smoker Tobacco 2A : No MAGO GIORDANO [facility] - 10/18/2015 10:37 PAVING BLOCK CUTTER Caffeine Use Grid Caffeine Use : Current Type : Soft drinks Frequency : Daily MAGO GIORDANO [facility] - 10/18/2015 10:37 PAVING BLOCK CUTTER Source: [facility] [employer] Document Id: [id number] PAVING BLOCK CUTTER!36 NG BLOCK CUTTER documented in this encounter Plan of Treatment Upcoming Encounters Date Type Specialty Care Team Description 10/19/2022 Procedure visit Neurology Marina Winter M.D., M.P.H. [address] [phone] (Wo rk) Scheduled Procedures Name Priority Associated Diagnoses Date/Time LIFT THIGH Excessive And Redundant Skin And Subcutaneous Tissue documented as of this encounter Procedures Procedure Name Priority Date/Time Associated Comments Diagnosis BACTERIAL CULTURE, Routine 10/18/2015 4:18 PM Res ults for this AEROBIC, URINE PAVING BLOCK CUTTER procedure are in the results section. DX HAND RIGHT 3+ Routine 10/18/2015 11:51 Results for this VIEWS AM PAVING BLOCK CUTTER procedure are i n the results section. HIV-1/-2 AG AND AB Routine 10/18/2015 11:43 Resul ts for this SCREEN AM PAVING BLOCK CUTTER procedure are i n the results section. HCV RNA DETECT/QUANT Routine 10/18/2015 11:43 Res ults for this AM PAVING BLOCK CUTTER procedure are i n the results section. AUTOMATED Routine 10/18/2015 11:43 Results for this DIFFERENTIAL, B AM PAVING BLOCK CUTTER procedure ar e in the results section. HEPATITIS B SURFACE Routine 10/18/2015 11:43 Resu lts for this ANTIGEN AM PAVING BLOCK CUTTER procedure are i n the results section. CBC WITH Routine 10/18/2015 11:43 Results for this DIFFERENTIAL, B AM PAVING BLOCK CUTTER procedure ar e in the results section. C-REACTIVE PROTEIN Routine 10/18/2015 11:43 Resul ts for this (CRP), S/P AM PAVING BLOCK CUTTER procedure are i n the results section. WET PREP EXAM, Routine 10/18/2015 11:30 Results f or this UROGENITAL AM PAVING BLOCK CUTTER procedure are i n the results section. HXUR % DYSMORPHIC RBC Routine 10/18/2015 11:26 Re sults for this AM PAVING BLOCK CUTTER procedure are i n the results section. URINALYSIS, ROUTINE Routine 10/18/2015 11:26 Resu lts for this AM PAVING BLOCK CUTTER procedure are i n the results section. URINE MICROSCOPIC Routine 10/18/2015 11:26 Result s for this AM PAVING BLOCK CUTTER procedure are i n the results section. CHLAMYDIA/GONORRHOEAE Routine 10/18/2015 11:23 Re sults for this AMPLIFIED RNA AM PAVING BLOCK CUTTER procedure are in the results section. CHLAMYDIA TRACHOMATIS Routine 10/18/2015 11:23 Re sults for this AMPLIFIED RNA AM PAVING BLOCK CUTTER procedure are in the results section. TEST, U Routine 10/18/2015 11:20 Result s for this AM PAVING BLOCK CUTTER procedure are i n the results section. documented in this encounter Results Bacterial Culture, Aerobic, Urine (10/18/2015 4:18 PM PAVING BLOCK CUTTER) [facility] gist Method Time Signature Bacterial POWERCHART Culture, Aerobic, Urine [facility] Mixed carmelo. No POWERCHART further studies unless notified. [facility] POWERCHART Microbiology laboratory [phone]. Specimen (Source) Anatomical Collection Method Collection Time Re ceived Time Location / / Volume Laterality Urine, First 10/18/2015 4:18 PM Voided PAVING BLOCK CUTTER Pierre Bangura M.D. LAB MICROBIOLOGY - GENERAL O RDERABLES Performing Organization Address City/State/ZIP Code Phon e Number POWERCHART DX Hand Right 3+ Views (10/18/2015 11:51 AM PAVING BLOCK CUTTER) Anatomical Region Laterality Modality Upper Extremity, Hand Right Radiographic Imagi ng Specimen (Source) Anatomical Collection Method Collection Time Re ceived Time Location / / Volume Laterality 10/18/2015 11:51 AM PAVING BLOCK CUTTER Addenda Addendum by Provider, Ella Moreno 10/18/2015 11:51 AM PAVING BLOCK CUTTER RAD^^^OW XR Hand Right 3 or more views 10/18/2015 11:51:55 Impressions 10/18/2015 12:16 PM PAVING BLOCK CUTTER Negative. Narrative 10/18/2015 12:16 PM PAVING BLOCK CUTTER EXAM: XR Hand Right 3 or more views INDICATION: pain 3rd finger and radial p basilio AGE: 30 years-old COMPARISON: None. FINDINGS: No acute fracture or subluxati on. No degenerative joint disease. Procedure Note Dilshad Faustin M.D. / Josh Elias M.D. - 03/15/2017 EXAM: XR Hand Right 3 or more views INDICATION: pain 3rd finger and radial p basilio AGE: 30 years-old COMPARISON: None. FINDINGS: No acute fracture or subluxati on. No degenerative joint disease. IMPRESSION: Negative. Jessica Martin(R), RRodrigoTRodrigo(R)(M) IMG DIAGNOSTIC IM AGING PROCEDURES Automated Differential (10/18/2015 11:43 AM PAVING BLOCK CUTTER) athologist Signature Absolute 5.18 1.70 - POWERCHART Neutrophils 7.00 109L Lymphocytes 2.52 0.90 - POWERCHART 2.90 X109L Monocytes 0.62 0.30 - POWERCHART 0.90 X109L Eosinophils 0.13 0.05 - POWERCHART 0.50 X109L Absolute 0.01 0.00 - POWERCHART Basophil 0.30 X109L Specimen Anatomical Collection Method Collection Time Receive d Time (Source) Location / / Volume Laterality Blood 10/18/2015 11:43 10/18/2015 AM PAVING BLOCK CUTTER 11:43 AM PAVING BLOCK CUTTER Pierre Bangura M.D. LAB BLOOD ADD-ON Performing Organization Address City/State/ZIP Code Phon e Number POWERCHART CBC with Differential (10/18/2015 11:43 AM PAVING BLOCK CUTTER) P athologist Signature Leukocytes 8.5 3.4 - 10.5 POWERCHART X109L Erythrocytes 4.97 3.90 - 5.03 POWERCHART [id number] Hemoglobin 14.3 12.0 - 15.5 POWERCHART GDL Hematocrit 43.0 34.9 - 44.5 POWERCHART MCV 86.5 82.0 - 98.0 POWERCHART FL HX RDW 13.2 11.9 - 15.5 POWERCHART Platelet Count 286 150 - 450 POWERCHART X109L Specimen (Source) Anatomical Collection Method Collection Time Re ceived Time Location / / Volume Laterality Blood 10/18/2015 11:43 AM PAVING BLOCK CUTTER Pierre Bangura M.D. LAB BLOOD ADD-ON Performing Organization Address City/[facility]/ZIP Code Phon e Number POWERCHART (ABNORMAL) CRP (C-Reactive Protein) (10/18/2015 11:43 AM PAVING BLOCK CUTTER) P athologist Signature C-Reactive 6.7 (H) <=5.0 MGL POWERCHART Protein (CRP), S Specimen (Source) Anatomical Collection Method Collection Time Re ceived Time Location / / Volume Laterality Blood 10/18/2015 11:43 AM PAVING BLOCK CUTTER Pierre Bangura M.D. LAB BLOOD ADD-ON Performing Organization Address [facility] Code Phon e Number POWERCHART HCV RNA Detect / Quant (10/18/2015 11:43 AM PAVING BLOCK CUTTER) Patholo gist Method Time Signature HCV RNA Undetected Undetected POWERCHART Detect/Quant, INTUML S Comment: Result in log IU/mL is Undetected. ADDITIONAL INFORMATIO N The quantification range of this assay i s 15 to 100,000,000 IU/mL (1.18 log to 8.00 log IU/mL). Test ing was performed by the [employer]IE AmpliPrep/NATALIE TaqMan HCV Test, version 2.0 ([employer] Test Performed by: [place] [address] Production Scheduler: Hardik Burroughs II, M.D., Ph.D. Specimen (Source) Anatomical Collection Method Collection Time Re ceived Time Location / / Volume Laterality Blood 10/18/2015 11:43 AM PAVING BLOCK CUTTER Pierre Bangura M.D. LAB MICROBIOLOGY - BLOOD ORD ERABLES Performing Organization Address City/[facility] Code Phon e Number POWERCHART Hepatitis B Surface Antigen (10/18/2015 11:43 AM PAVING BLOCK CUTTER) Analysis Performed At Patho logist Time Signature Interpretation Negative POWERCHART Specimen (Source) Anatomical Collection Method Collection Time Re ceived Time Location / / Volume Laterality Blood 10/18/2015 11:43 AM PAVING BLOCK CUTTER Pierre Bangura M.D. LAB MICROBIOLOGY - BLOOD ORD ERABLES Performing Organization Address [facility] Code Phon e Number POWERCHART HIV-1/-2 Ag and Ab Screen (10/18/2015 11:43 AM PAVING BLOCK CUTTER) athologist Signature HIV-1/-2 Negative Negative POWERCHART Antibody Comment: Negative result does not rule out HIV in fection. If acute HIV infection is suspected in a hi gh-risk individual, submit plasma specimen for H IV-1 RNA quantification test (HIVDQ) and/or HIV-2 DNA/RNA test (FHV2Q). Test Performed by: [place] [address] Production Scheduler: Hardik Burroughs II, M.D., Ph.D. Specimen (Source) Anatomical Collection Method Collection Time Re ceived Time Location / / Volume Laterality Blood 10/18/2015 11:43 AM PAVING BLOCK CUTTER Pierre Bangura M.D. LAB MICROBIOLOGY - BLOOD ORD ERABLES Performing Organization Address [facility] Phon e Number POWERCHART Wet Prep Exam, Urogenital (10/18/2015 11:30 AM PAVING BLOCK CUTTER) athologist Signature HXWet Prep POWERCHART HXFinal No yeast, POWERCHART Trichomonas , clue cells, or sperm seen. Specimen (Source) Anatomical Collection Method Collection Time Re ceived Time Location / / Volume Laterality Vagina 10/18/2015 11:30 AM PAVING BLOCK CUTTER Pierre Bangura M.D. LAB MICROBIOLOGY - GENERAL O RDERABLES Performing Organization Address City/[facility] Code Phon e Number POWERCHART HXUR % DYSMORPHIC RBC (10/18/2015 11:26 AM PAVING BLOCK CUTTER) athologist Signature Dysmorphic RBC <=25 <=25 POWERCHART Specimen Anatomical Collection Method Collection Time Receive d Time (Source) Location / / Volume Laterality Urine, First 10/18/2015 11:26 10/18/2015 Voided AM PAVING BLOCK CUTTER 11:26 AM PAVING BLOCK CUTTER Pierre Bangura M.D. LAB HISTORICAL ORDERS Performing Organization Address City/State/ZIP Code Phon e Number POWERCHART (ABNORMAL) Urine Microscopic (10/18/2015 11:26 AM PAVING BLOCK CUTTER) [facility] [employer] Method Time Signature HXUR WBC. 11-20 (A) None Seen POWERCHART HPF HXUR RBC. 3-10 (A) None Seen POWERCHART HPF HXUR Bacteria, Present (A) None Seen POWERCHART Squamous 31-40 (A) None Seen POWERCHART Epithelial HPF Specimen Anatomical Collection Method Collection Time Receive d Time (Source) Location / / Volume Laterality Urine, First 10/18/2015 11:26 10/18/2015 Voided AM PAVING BLOCK CUTTER 11:26 AM PAVING BLOCK CUTTER Pierre Bangura M.D. LAB URINE ORDERABLES Performing Organization Address City/[facility]/ZIP Code Phon e Number POWERCHART (ABNORMAL) Urinalysis, Routine (10/18/2015 11:26 AM PAVING BLOCK CUTTER) [facility] [employer] Method Time Signature HXUr Color Yellow Colorless POWERCHART Clarity Slightly Clear POWERCHART Cloudy (A) Glucose Negative Negative POWERCHART MGDL HXBILIRUBIN Negative Negative POWERCHART Ketones, QL(U) Negative Negative POWERCHART MGDL Specific 1.020 POWERCHART Haskins, POCT, U pH, POCT, Urine 5.0 POWERCHART Protein, Ur, Negative Negative POWERCHART Dip MGDL Urobilinogen 0.2 0.2 MGDL POWERCHART HXNITRITE Negative Negative POWERCHART HXBLOOD Small (A) Negative POWERCHART Leukocyte Small (A) Negative POWERCHART Esterase Specimen (Source) Anatomical Collection Method Collection Time Re ceived Time Location / / Volume Laterality Urine, First 10/18/2015 11:26 Voided AM PAVING BLOCK CUTTER Pierre Bangura M.D. LAB URINE ORDERABLES Performing Organization Address City/State/ZIP Code Phon e Number POWERCHART Chlamydia / Gonorrhoeae Amplified RNA (10/18/2015 11:23 AM PAVING BLOCK CUTTER) Component Value Ref Test Analysis Performed At [facility] [employer] Method Time Signature HX GC by Nucleic POWERCHART Acid Amplification HXFinal Negative for POWERCHART Neisseria gonorrhea by RNA amplification . HXFinal Reference: POWERCHART Negative HXFinal If you POWERCHART submitted a female urine sample, please note it is a Laboratory Developed Test. Specimen (Source) Anatomical Collection Method Collection Time Re ceived Time Location / / Volume Laterality Cervix/Endocervix 10/18/2015 11:23 AM PAVING BLOCK CUTTER Pierre Bangura M.D. LAB MICROBIOLOGY - GENERAL O CLARISSA Performing Organization Address City/State/ZIP Code Phon e Number POWERCHART Chlamydia Trachomatis Amplified RNA (10/18/2015 11:23 AM PAVING BLOCK CUTTER) Component Value Ref Test Analysis Performed At [facility] [employer] Range Method Time Signature HXChlamydia by POWERCHART Nucleic Acid Amplification HXFinal Negative for POWERCHART Chlamydia trachomatis by RNA amplification. HXFinal Reference: POWERCHART Negative HXFinal If you POWERCHART submitted a female urine sample, please note it is a Laboratory Developed Test. Specimen (Source) Anatomical Collection Method Collection Time Re ceived Time Location / / Volume Laterality Cervix/Endocervix 10/18/2015 11:23 AM PAVING BLOCK CUTTER Pierre Bangura M.D. LAB MICROBIOLOGY - GENERAL O CLARISSA Performing Organization Address [facility] Code Phon e Number POWERCHART Test, Qualitative, Urine (10/18/2015 11:20 AM PAVING BLOCK CUTTER) [facility] Method Time Signature HXBeta-hCG Negative POWERCHART Qualitative Urine Specimen (Source) Anatomical Collection Method Collection Time Re ceived Time Location / / Volume Laterality Urine 10/18/2015 11:20 AM PAVING BLOCK CUTTER Pierre Bangura M.D. LAB URINE ORDERABLES Performing Organization Address City/[facility] Code Phon e Number POWERCHART documented in this encounter Visit Diagnoses Not on filedocumented in this encounter Additional Health Concerns Assessment Noted Time PHQ-9 Depression Total Score: 13 06/14/2015 3:56 PM CD T documented as of this encounter
--- OUTSIDE RECORDS SUMMARY | 2022-09-05 06:13 | XMS_ITS | Encounter Summary ---
:1985 Author Organization [facility] Address [address] [place] [address] Care Team Providers Name Role Phone Unavailable Primary Care Provider Unavailable Encounter Details Date Type Department Care Team Description 09/13/2015 Hospital Encounter HX NO MAPPING Olena Putnam M.D. [address] [place], [place] [phone] (Wo rk) Social History [...] How often do you attend episcopalian or congregation Never 07/04/2019 services? 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 [address] [place] [phone] (Wo rk) Scheduled Procedures Name Priority Associated Diagnoses Date/Time LIFT THIGH Excessive And Redundant Skin And Subcutaneous Tissue documented as of this encounter Visit Diagnoses Not on filedocumented in this encounter Additional Health Concerns Assessment Noted Time PHQ-9 Depression Total Score: 13 06/14/2015 3:56 PM CD T documented as of this encounter
--- OUTSIDE RECORDS SUMMARY | 2022-09-05 06:13 | XMS_ITS | Encounter Summary ---
:1985 Author Organization [facility] Address [address] [place] [address] Care Team Providers Name Role Phone Unavailable Primary Care Provider Unavailable Encounter Details Date Type Department Care Team Description 05/05/2015 Hospital Encounter HX NO MAPPING Donnie Diaz M.D. [address] [place], [place] [phone] (Wo rk) Social History [...] How often do you attend anglican or rastafari Never 07/04/2019 services? 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 [address] [place] [phone] (Wo rk) Scheduled Procedures Name Priority Associated Diagnoses Date/Time LIFT THIGH Excessive And Redundant Skin And Subcutaneous Tissue documented as of this encounter Visit Diagnoses Not on filedocumented in this encounter Additional Health Concerns Assessment Noted Time PHQ-9 Depression Total Score: 6 02/15/2015 4:18 PM CDT documented as of this encounter
--- OUTSIDE RECORDS SUMMARY | 2022-09-05 06:13 | XMS_ITS | Encounter Summary ---
:1985 Author Organization [facility] Address [address] [place] [address] Care Team Providers Name Role Phone Unavailable [...] How often do you attend jainism or caodaism Never 07/04/2019 services? 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 STATUS: * Discharged to Home [...] SON Date Saved: 11/09/2015 09:38 am [facility] Document Id: [id number] documented in this encounter Plan of Treatment Upcoming Encounters Date Type Specialty Care Team Description 10/19/2022 Procedure visit Neurology Marina Winter M.D., M.P.H. [address] [phone] (Wo rk) Scheduled Procedures Name Priority Associated Diagnoses Date/Time LIFT THIGH Excessive And Redundant Skin And Subcutaneous Tissue documented as of this encounter Visit Diagnoses Not on filedocumented in this encounter Additional Health Concerns Assessment Noted Time PHQ-9 Depression Total Score: 13 06/14/2015 3:56 PM CD T documented as of this encounter
--- OUTSIDE RECORDS SUMMARY | 2022-09-05 06:13 | XMS_ITS | Encounter Summary ---
:1985 Author Organization [facility] Address [address] [place] [address] Care Team Providers Name Role Phone Unavailable Primary Care Provider Unavailable Encounter Details Date Type Department Care Team Description 06/11/2015 Hospital Encounter [facility] Meche Montiel M.D. [address] [place] [phone] (Wo rk) Social History Tobacco Use Types [...] How often do you attend latter-day or yarsanism Never 07/04/2019 services? 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 - 06/11/2015 9:34 AM CDT [id number] CHIEF COMPLAINT / REASON FOR VISIT Followup [...] 190/100 when she last checked it at [employer]. It is well-controlled today at 122/76, and [...] behalf by Sanam Lindsay, a trained medical observer. The creation of this record is based on the scribe's personal observations and the provider's statements to them. This document has been checked and approved by the attending provider. Annemarie Montiel M.D./sima Electronically Signed By: ANNEMARIE MONTIEL MD On: 07/02/2015 08:22 AM Source: [facility] MHSDOLBEYNONRADSYS Document Id: [id number] documented in this encounter Miscellaneous Notes Miscellaneous [...] One Kidney : No : No Previous [place] : No Other (document in Comments) : No CLIFFORD OVALLES LPN - 06/23/2015 16:32 CDT Previous Films : No Previous Films Requested Today : No CLIFFORD OVALLES LPN - 06/23/2015 16:32 CDT Source: [facility] POWERCHART Document Id: [id number] CDT!29 Miscellaneous - Annemarie Montiel M.D. - 06/16/2015 6:41 AM CDT Results Notification Document Contains Addenda Addendum by ANNEMARIE MONTIEL MD on 23 June 2015 19:15:19 CDT Orders placed for [employer]. I am not sure how to do them in [place]. Addendum by CLIFFORD OVALLES LPN on 16 [...] wondering if everything can be done in [facility] or if she has to come back here. From: ANNEMARIE MONTIEL [facility]; Sent: 06/16/2015 06:41:29 CDT ! Show [...] Ab-Gallegos 8.1 IntU/ml (<9.0 - ) Source: [facility] POWERCHART Document Id: [id number] Bunny - Deb Purvis - 06/14/2015 3:56 [...] DEB PURVIS - 06/14/2015 15:56 CDT Source: [facility] POWERCHART Document Id: [id number] CDT!13 Bunny - Annemarie Montiel M.D. - 06/11/2015 10:56 AM CDT Work Excuse 11 June 2015 NANCY PHILLIPS [address] [place] [phone] Dear NANCY PHILLIPS, You were examined in [...] to manageher medical concerns. Sincerely, ANNEMARIE MONTIEL [address] [place] [phone] Electronic Signature Electronically Signed By: ANNEMARIE MONTIEL MD On: 11 June 2015 This document has images extracted. Source: [facility] POWERCHART Document Id: [id number] Miscellaneous - Annemarie Montiel M.D. - 06/11/2015 10:54 AM CDT Ambulatory Patient Summary [facility] [address] [place] [phone] Visit Information Name: NANCY PHILLIPS [facility] Number: [id number] Current Date: 06/11/2015 10:54:50 [...] New dose Thisis a CHANGE Routed to [facility] [address] [place] [address] Stop Taking the Following Medications: Medication list [...] dont have one. Go to [email or web address] and click on Create Your Account. Then, follow the directions to complete the online form. Youll be asked for your [facility] number which you can find at the top of this document. Your Goals/Additional instructions: Source: [facility] POWERCHART Document Id: [id number] Miscellaneous - Annemarie Montiel M.D. - 06/11/2015 10:54 AM CDT Ambulatory Discharge Medication List [facility] [address] [place] [phone] Visit Information Name: NANCY PHILLIPS [facility] Number: [id number] Visit Date: 06/11/2015 10:54:49 [...] New dose Thisis a CHANGE [facility] [address] [place] [address] Stop Taking the Following Medications: Medication list [...] Electronically Signed By: ANNEMARIE MOTNIEL MD Signed On:11-JUN-2015 10:54:39 Additional Information: Source: [facility] POWERCHART Document Id: [id number] Miscellaneous - Clifford Ovalles LRodrigoPRodrigoN. - 06/11/2015 10:05 AM CDT Adult Aluminum Can Collector Intake/History Adult Aluminum Can Collector Intake/History Entered On: 06/11/2015 10:10 CDT Performed [...] Soft drinks Frequency : Daily CLIFFORD OVALLES PRADEEP - 06/11/2015 10:05 CDT Source: [facility] POWERCHART Document Id: [id number] CDT!40 documented in this encounter Plan of Treatment Upcoming Encounters Date Type Specialty Care Team Description 10/19/2022 Procedure visit Neurology Marina Winter M.D., M.P.H. [address] [phone] (Wo rk) Scheduled Procedures Name Priority [...] M.D. LAB HISTORICAL ORDERS Performing Organization Address City/[facility]/ZIP Code [...] Negative POWERCHART MGDL Specific >=1.030 (A) POWERCHART Dawson, POCT, U pH, POCT, Urine 5.5 POWERCHART [...] M.D. LAB URINE ORDERABLES Performing Organization Address [facility] Code Phon e Number POWERCHART (ABNORMAL) BMP (Basic Metabolic Panel) (06/11/2015 11:06 AM CDT) athologist Signature BUN (Blood Urea 8 6 [...] POWERCHART MMOLL HXeGFR (MDRD) >60 >=60 POWERCHART [id number] eGFR >60 >=60 POWERCHART Black/ [id number] Zimbabwean Specimen (Source) Anatomical Collection Method Collection Time Re ceived Time Location / / Volume Laterality Blood 06/11/2015 11:06 AM CDT Annemarie Montiel M.D. LAB BLOOD ADD-ON Performing Organization Address City/State/ZIP Code Phon e Number POWERCHART Thyroperoxidase (TPO) Antibodies (06/11/2015 11:06 AM CDT) Patholo gist Method Time Signature Thyroperoxidase Ab, 8.1 <9.0 POWERCHART S INTUML Comment: Test Performed by: [place] [address] Police Pilot: Hardik Burroughs II, M.D., Ph.D. Specimen (Source) [...]
--- OUTSIDE RECORDS SUMMARY | 2022-09-05 06:13 | XMS_ITS | Encounter Summary ---
:1985 Author Organization [facility] Address [address] [place] [address] Care Team Providers Name Role Phone Unavailable Primary Care Provider Unavailable Encounter Details Date Type Department Care Team Description 04/05/2016 Hospital Encounter HX [facility] Nahun Tejeda M.D. [address] [place], [place] [phone] (Wo rk) [...] How often do you attend mormonism or jewish Never 07/04/2019 services? 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 [address] [phone] (Wo rk) Scheduled [...]
--- OUTSIDE RECORDS SUMMARY | 2022-09-05 06:13 | XMS_ITS | Encounter Summary ---
:1985 Author Organization [facility] Address [address] [place] [address] Care Team Providers Name Role Phone Unavailable [...] How often do you attend rastafarian or jewish Never 07/04/2019 services? 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 [address] [phone] (Wo rk) Scheduled Procedures Name Priority Associated Diagnoses Date/Time LIFT THIGH Excessive And Redundant Skin And Subcutaneous Tissue documented as of this encounter Visit Diagnoses Not on filedocumented in this encounter Additional Health Concerns Assessment Noted Time PHQ-9 Depression Total Score: 13 06/14/2015 3:56 PM CD T documented as of this encounter
--- OUTSIDE RECORDS SUMMARY | 2022-09-05 06:14 | XMS_ITS | Encounter Summary ---
:1985 Author Organization [facility] Address [address] [place] [address] Care Team Providers Name Role Phone Unavailable Primary Care Provider Unavailable Encounter Details Date Type Department Care Team Description 07/09/2013 Hospital Encounter HX [facility] FAMILYPRA Ирина Baird, ArnoldoA. 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 HISTORY [...] been attending a options support group in [place] and had found that to be very [...] consider continuing with her support group in [place] if possible as she does feel that [...] COLEMAN PA-C On: 10/08/2013 06:27 PM Source: [facility] MHSDOLBEYNONRADSYS Document Id: [id number] ONAL PRODUCTION MANAGER documented in this encounter Miscellaneous Notes Miscellaneous - Ирина Coleman - 07/09/2013 6:25 PM CDT Ambulatory Patient Summary [facility] [address] [place] [address] Visit Information Name: NANCY ROBINS [facility] Number: [id number] Current Date: 07/09/2013 18:25:19 Physicians [...] No Appointments found Your Goals/Additional instructions: Source: [facility] POWERCHART Document Id: [id number] Miscellaneous - Ирина Coleman - 07/09/2013 6:25 PM CDT Ambulatory Depart Summary [facility] [address] [facility] [place] [address] Visit Information Name: NANCY ROBINS [facility] Number: [id number] Visit Date: 07/09/2013 18:25:18 Attending Provider: ИРИНА COLEMAN PA-C Primary Care Provider: LEXII MINOR TAYENANCY KEYSE has been given the following list of [...] your provider for clarification. 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 Intake/History Adult Machine Pie Maker Intake/History Entered On: 07/09/2013 15:17 CDT Performed On: 07/09/2013 15:15 CDT by TOÑO FRAGA Intake Chief Complaint : Phentermine refill Temperature Oral [...] Mode : Verbal Languages : South Korean TOÑO FRAGA - 07/09/2013 15:15 CDT Subjective [...] TOÑO FRAGA - 07/09/2013 15:15 CDT Source: [employer] Document Id: [id number] CDT!36 Miscellaneous - Conversion, Historical Provider Ser [...] TOÑO FRAGA - 07/11/2013 9:08 CDT [facility] POWERCHART Document Id: [id number] CDT!12 documented in this encounter Plan of Treatment Upcoming Encounters Date Type Specialty Care Team Description 10/19/2022 Procedure visit Neurology Marina Winter M.D., M.P.H. [address] [phone] (Wo rk) Scheduled Procedures Name Priority Associated Diagnoses Date/Time LIFT THIGH Excessive And Redundant Skin And Subcutaneous Tissue documented as of this encounter Visit Diagnoses Not on filedocumented in this encounter Additional Health Concerns Assessment Noted Time PHQ-9 Depression Total Score: 5 07/09/2013 9:08 AM CDT documented as of this encounter
--- OUTSIDE RECORDS SUMMARY | 2022-09-05 06:14 | XMS_ITS | Encounter Summary ---
:1985 Author Organization [facility] Address [address] [place] [address] Care Team Providers Name Role Phone Unavailable Primary Care Provider Unavailable Encounter Details Date Type Department Care Team Description 10/24/2013 Hospital Encounter HX [facility] FAMILYPRA GrandLizandro simon, P.ARodrigo-Nadya [address] [place], [place] [phone] (Wo rk) Social History Tobacco Use Types [...] How often do you attend confucianism or jew Never 07/04/2019 services? 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 Last Filed Vital Signs Vital Sign Reading Time Taken Comments Blood Pressure 122/78 10/24/2013 1:22 PM FORM SETTER Pulse 72 10/24/2013 1:22 PM FORM SETTER Temperature - - Respiratory Rate 16 10/24/2013 1:22 PM FORM SETTER Oxygen Saturation - - Inhaled Oxygen Concentration - - Weight 104 kg (229 lb 4.5 oz) 10/24/2013 1:22 PM FORM SETTER Height 163 cm (5' 4.17) 10/24/2013 1:22 PM FORM SETTER Body Mass Index 39.14 10/24/2013 1:22 PM FORM SETTER documented in this encounter Progress Notes Lexii Minor P.A.-C., Karla - 10/24/2013 1:10 PM CST [id number] CHIEF COMPLAINT/REASON FOR VISIT Refill phentermine, discuss [...] or concerns at this time. MEDICATIONS Reviewed [facility] EMR dated 10/24/2013 and no changes ALLERGIES No known drug allergies VITAL SIGNS Reviewed [facility] EMR dated 10/24/2013 and no changes [...] MINOR PA-C On: 10/28/2013 12:59 PM Source: [facility] MHSDOLBEYNONRADSYS Document Id: [id number] SETTER documented in this encounter Miscellaneous Notes Miscellaneous - Chapis Davalos L.P.N. - 10/24/2013 1:22 PM FORM SETTER Adult Gang Rider Intake/History Adult Gang Rider Intake/History Entered On: 10/24/2013 13:26 FORM SETTER Performed On: 10/24/2013 13:22 FORM SETTER by CHAPIS DAVALOS Intake Chief Complaint : [...] 39.14 kg/m2 CHAPIS DAVALOS - 10/24/2013 13:22 FORM SETTER General Info Information Given By : Patient Languages : Ugandan CHAPIS DAVALOS - 10/24/2013 13:22 FORM SETTER Subjective Pain Symptoms : No CHAPIS DAVALOS - 10/24/2013 13:22 FORM SETTER Dependent Habits Tobacco Use/Currently Using : No Exposure to Tobacco Smoke : Other: never Smoking Status : Never smoker CHAPIS DAVALOS - 10/24/2013 13:22 FORM SETTER Tobacco Use Grid Other Tobacco Frequency : never CHAPIS DAVALOS - 10/24/2013 13:22 FORM SETTER Caffeine Use Grid Caffeine Use : Current Type : Soft drinks Frequency : Daily CHAPIS DAVALOS - 10/24/2013 13:22 FORM SETTER Source: [facility] POWERCHART Document Id: [id number] FORM SETTER!31 SETTER documented in this encounter Plan of Treatment Upcoming Encounters Date Type Specialty Care Team Description 10/19/2022 Procedure visit Neurology Marina Winter M.D., M.P.H. [address] [phone] (Wo rk) Scheduled Procedures Name Priority Associated Diagnoses Date/Time LIFT THIGH Excessive And Redundant Skin And Subcutaneous Tissue documented as of this encounter Visit Diagnoses Not on filedocumented in this encounter Additional Health Concerns Assessment Noted Time PHQ-9 Depression Total Score: 5 07/09/2013 9:08 AM CDT documented as of this encounter
--- OUTSIDE RECORDS SUMMARY | 2022-09-05 06:14 | XMS_ITS | Encounter Summary ---
:1985 Author Organization [facility] Address [address] [place] [address] Care Team Providers Name Role Phone Unavailable Primary Care Provider Unavailable Encounter Details Date Type Department Care Team Description 05/30/2013 Hospital Encounter HX [facility] Bryson Escobar Jr., M.D. [address] [place], [place] [phone] (Wo rk) Social History [...] How often do you attend buddhist or yazdanism Never 07/04/2019 services? 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 - 05/30/2013 12:05 PM CDT [id number] CHIEF COMPLAINT/REASON FOR VISIT Patient in for [...] the information and had her sign the [employer] paperwork for that and she will get [...] HOANG MD On: 06/02/2013 05:27 PM Source: [facility] MHSDOLBEYNONRADSYS Document Id: [id number] documented in this encounter Miscellaneous Notes Miscellaneous - Bryson Hoang Jr., M.D. - 05/30/2013 12:24 PM CDT [place] [address] Visit Information Name: NANCY ROBINS [facility] Number: [id number] Current Date: 05/30/2013 12:24:20 [...] Time Location Reason Provider 06/23/2013 13:30 [facility] EMBOSSING PRESS OPERATOR post Bryson Hoang MD Your Goals/Additional instructions: Source: [facility] POWERCHART Document Id: [id number] Miscellaneous - Bryson Hoang Jr., M.D. - 05/30/2013 12:24 PM CDT [place] [address] Visit Information Name: NANCY ROBINS [facility] Number: [id number] Visit Date: 05/30/2013 12:24:19 [...] your provider for clarification. Additional Information: Source: [facility] POWERCHART Document Id: [id number] Miscellaneous - Alexandra العلي L.P.N. - 05/30/2013 12:18 PM CDT Adult Gastroenterology Nurse Intake/History Adult Gastroenterology Nurse Intake/History Entered On: 05/30/2013 12:19 CDT Performed [...] 05/30/2013 12:18 CDT General Info Languages : Colombian ALEXANDRA العلي - 05/30/2013 12:18 CDT Subjective [...] ALEXANDRA العلي - 05/30/2013 12:18 CDT Source: [facility] [employer] EnginesCHART Document Id: [id number] CDT!30 documented in this encounter Plan of Treatment Upcoming Encounters Date Type Specialty Care Team Description 10/19/2022 Procedure visit Neurology Marina Winter M.D., M.P.H. [address] [phone] (Wo rk) Scheduled Procedures Name Priority Associated Diagnoses Date/Time LIFT THIGH Excessive And Redundant Skin And Subcutaneous Tissue documented as of this encounter Visit Diagnoses Not on filedocumented in this encounter Additional Health Concerns Assessment Noted Time PHQ-9 Depression Total Score: 17 05/07/2012 1:10 PM CD T documented as of this encounter
--- OUTSIDE RECORDS SUMMARY | 2022-09-05 06:14 | XMS_ITS | Encounter Summary ---
:1985 Author Organization [facility] Address [address] [place] [address] Care Team Providers Name Role Phone Unavailable Primary Care Provider Unavailable Encounter Details Date Type Department Care Team Description 05/07/2013 Hospital Encounter HX [facility] Steve [place] M.D. [address] [place] [address] (Wo rk) Social History Tobacco Use Types [...] How often do you attend hoahaoism or confucianism Never 07/04/2019 services? 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 - 05/07/2013 9:01 AM CDT [id number] CHIEF COMPLAINT/REASON FOR VISIT OB check. HISTORY [...] DIAZ MD On: 05/13/2013 07:25 AM Source: [facility] MHSDOLBEYNONRADSYS Document Id: [id number] documented in this encounter Miscellaneous Notes Miscellaneous - Aidan Diaz M.D. - 05/07/2013 9:38 AM CDT Ambulatory Patient Summary [facility] [address] [place] [address] Visit Information Name: NANCY ROBINS [facility] Number: [id number] Current Date: 05/07/2013 09:38:08 Physicians [...] No Appointments found Your Goals/Additional instructions: Source: [facility] [employer] Document Id: [id number] Miscellaneous - Aidan Diaz M.D. - 05/07/2013 9:38 AM CDT [place] [address] Visit Information Name: NANCY ROBINS [facility] Number: [id number] Visit Date: 05/07/2013 09:38:07 Attending [...] your provider for clarification. Additional Information: Source: [facility] [employer] Document Id: [id number] Miscellaneous - Conversion, Historical Provider Ser - 05/07/2013 9:12 AM CDT Adult Intelligence Intern Intake/History Adult Intelligence Intern Intake/History Entered On: 05/07/2013 9:13 CDT Performed On: 05/07/2013 9:12 CDT by MAYES, ABE E WEEKDAY BABYSITTER Intake Chief Complaint : OB check, adbominal, [...] Given By : Patient Languages : Setswana SUGEY ABE Tripp LPN - 05/07/2013 9:12 CDT Subjective Pain Symptoms : No SUGEY ABE Tripp LPN - 05/07/2013 9:12 CDT Dependent Habits Tobacco Use/Currently Using : No Exposure to Tobacco Smoke : Other: never Smoking Status : Never smoker ABE MAYES LPN - 05/07/2013 9:12 CDT Tobacco Use Grid Other Tobacco Frequency : never ABE MAYES LPN - 05/07/2013 9:12 CDT Alcohol Use : No ABE MAYES LPN 05/07/2013 9:12 CDT Caffeine Use Grid Caffeine Use : Current Type : Soft drinks Frequency : Daily ABE MAYES LPN - 05/07/2013 9:12 CDT Source: [employer] Document Id: [id number] CDT!29 documented in this encounter Plan of Treatment Upcoming Encounters Date Type Specialty Care Team Description 10/19/2022 Procedure visit Neurology Marina Winter M.D., M.P.H. [address] [place] [phone] (Wo rk) Scheduled Procedures Name Priority Associated Diagnoses Date/Time LIFT THIGH Excessive And Redundant Skin And Subcutaneous Tissue documented as of this encounter Visit Diagnoses Not on filedocumented in this encounter Additional Health Concerns Assessment Noted Time PHQ-9 Depression Total Score: 17 05/07/2012 1:10 PM CD T documented as of this encounter
--- OUTSIDE RECORDS SUMMARY | 2022-09-05 06:14 | XMS_ITS | Encounter Summary ---
:1985 Author Organization [facility] Address [address] [place] [address] Care Team Providers Name Role Phone Unavailable [...] How often do you attend scientology or voodoo Never 07/04/2019 services? 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 [address] [place], [place] [phone] (Wo rk) Scheduled Procedures [...] Results Glucose, POCT (04/20/2013 8:44 AM CDT) [facility] gist Method Time Signature Glucose, 81 70 - 140 ED [facility] POCT, B MG/DL LABORATORIES - [facility] Sample Site, Capillary ED [facility] Blood Gas, LABORATORIES - POCT [facility] Specimen Anatomical Collection Method Collection Time Receive d Time (Source) Location / / Volume Laterality 04/20/2013 8:44 AM 3 8:44 CDT AM CDT Historical Provider LAB POCT ORDERABLES-MANUAL Performing Organization Address City/State/ZIP Code Phon e Number ED [facility] LABORATORIES - [address] [place], [place] [address] [facility] ABORh, RBC (04/20/2013 4:48 AM CDT) P athologist Signature HXABO/RH BLOOD A Pos ED [facility] TYPE [facility] Specimen (Source) Anatomical Collection Method Collection Time Re ceived Time Location / / Volume Laterality 04/20/2013 4:48 AM CDT Historical Provider LAB BLOOD BANK TEST ORDERABL ES Performing Organization Address City/[facility] Phon e Number [facility] - [address] [phone] [facility] Antibody Screen, RBC (04/20/2013 4:48 AM CDT) Patholo gist Method Time Signature Antibody Negative ED [facility] Screen [facility] Specimen (Source) Anatomical Collection Method Collection Time Re ceived Time Location / / Volume Laterality 04/20/2013 4:48 AM CDT Historical Provider LAB BLOOD BANK TEST ORDERABL ES Performing Organization Address City/[facility] Phon e Number [facility] - [address] [phone] [facility] ABORh, RBC (04/20/2013 4:48 AM CDT) P athologist Signature HXABO/RH A POS [facility] Specimen (Source) Anatomical Collection Method Collection Time Re ceived Time Location / / Volume Laterality 04/20/2013 4:48 AM CDT Historical Provider LAB BLOOD BANK TEST ORDERABL ES Performing Organization Address City/[facility]/ZIP Code Phon e Number [facility] - [address] [phone] [facility] AST (Aspartate Aminotransferase) (04/20/2013 4:30 AM CDT) P athologist Signature AST, Total, S 12 8 - 43 U/L [facility] Specimen Anatomical Collection Method Collection Time Receive d Time (Source) Location / / Volume Laterality 04/20/2013 4:30 AM 3 4:30 CDT AM CDT Nimco Gonzalez M.D. LAB BLOOD ADD-ON Performing Organization Address City/[facility]/[place]IP [facility] [place] Number [facility] - [address] [phone] [facility] Creatinine with Estimated GFR (MDRD) (04/20/2013 4:30 AM CDT) Analysis Performed At [facility] logist Time Signature eGFR-Black/Afri >60 >60 ED [facility] can Tongan ML/MIN/BSA LABORATORIES - [facility] Creatinine 0.6 0.6 - 1.1 ED [facility] MG/DL LAB[facility]ATORIES - [facility] eGFR >60 >60 ED [facility] Non-Black/Afric ML/MIN/BSA LABORATORIES - an Tongan [facility] Specimen Anatomical Collection Method Collection Time Receive d Time (Source) Location / / Volume Laterality 04/20/2013 4:30 AM 3 4:30 CDT AM CDT Nimco Gonzalez M.D. LAB BLOOD ADD-ON Performing Organization Address City/[facility]/ZIP Code Phon e Number ED [facility] LABORATORIES - [address] [phone] [facility] (ABNORMAL) CBC without Differential (04/20/2013 4:30 AM CDT) [facility] Method Time Signature Hemoglobin 11.4 (L) 12.0 - ED [facility] 15.5 G/DL LAB[facility]ATORIES - [facility] Hematocrit 34.4 (L) 34.9 - ED [facility] 44.5 % LAB[facility]ATORIES - [facility] RBC Distrib 14.3 11.9 - ED [facility] Width 15.5 % [facility] Platelet Count 188 150 - 450 ED [facility] X10(9)/L LAB[facility]IES - [facility] Leukocytes 10.2 3.5 - ED [facility] 10.5 LABORATORIES - X10(9)/L [facility] Erythrocytes 4.15 3.90 - ED [facility] 5.03 LABORATORIES - X10(12)/L [facility] MCV 82.9 81.6 - ED [facility] 98.3 [place] LABORATORIES - [facility] Specimen Anatomical Collection Method Collection Time Receive d Time (Source) Location / / Volume Laterality 04/20/2013 4:30 AM 3 4:30 CDT AM CDT Nimco Gonzlaez M.D. LAB BLOOD ADD-ON Performing Organization Address City/State/[facility] Code Phon e Number ED [facility] LABORATORIES - [address] [phone] [facility] Adulterants Survey, Urine (04/20/2013 4:23 AM CDT) [facility] [employer] Method Time Signature Creatinine, U 90.5 MG/DL ED [facility] (w/ADULT) LABORATORIES - [facility] Specific 1.028 ED [facility] [place] [facility] - [facility] pH [address] [facility] Oxidants Negative [facility] Specimen Anatomical Collection Method Collection Time Receive d Time (Source) Location / / Volume Laterality 04/20/2013 4:23 AM 3 4:23 CDT AM CDT Historical Provider LAB URINE ORDERABLES Performing Organization Address City/State/ZIP Code Phon e Number ED [facility] LABORATORIES - [address] [place], [place] [address] [facility] Drug Abuse Survey with Confirmation, Panel 9, Urine (04/20/2013 4:23 AM CDT) Component Value Ref Test Analysis Performed At [facility] Range Method Time Signature Alcohol Negative Cutoff: ED [facility] 30 MG/DL [facility] Amphetamines, U Negative Cutoff: ED [facility] 500 LABORATORIES - NG/ML [facility] Cocaine, Quant Negative Cutoff: ED [facility] 150 LABORATORIES - NG/ML [facility] Methadone Metabolite Negative Cutoff: [facility] 300 LABORATORIES - NG/ML [facility] Propoxyphene, U Negative Cutoff: ED [facility] 300 LABORATORIES - NG/ML [facility] Tetrahydrocannabinol Negative Cutoff: [facility] 20 NG/ML [facility] Barbiturates Screen Negative Cutoff: [facility] 200 LABORATORIES - NG/ML [facility] Benzodiazepines Negative Cutoff: ED [facility] 200 LABORATORIES - NG/ML [facility] Opiates Negative Cutoff: ED [facility] 300 LABORATORIES - NG/ML [facility] Phencyclidine Negative Cutoff: ED [facility] 25 NG/ML [facility] Chain of Custody . [facility] Comment: Chain of custody documents are on file i n the [facility]. ? This report is intended for use in clini lori monitoring or management of ? patients. ??It is not intended for use i n employment-related testing. ? Specimen Anatomical Collection Method Collection Time Receive d Time (Source) Location / / Volume Laterality 04/20/2013 4:23 AM 3 4:23 CDT AM CDT Historical Provider LAB URINE ORDERABLES Performing Organization Address City/State/[facility] Phon e Number ED [facility] LABORATORIES - [address] [place], [place] [address] [facility] documented in this encounter Visit Diagnoses Not on filedocumented in this encounter Additional Health Concerns Assessment Noted Time PHQ-9 Depression Total Score: 17 05/07/2012 1:10 PM CD T documented as of this encounter
--- OUTSIDE RECORDS SUMMARY | 2022-09-05 06:14 | XMS_ITS | Encounter Summary ---
:1985 Author Organization [facility] Address [address] [place] [address] Care Team Providers Name Role Phone Unavailable Primary Care Provider Unavailable Encounter Details Date Type Department Care Team Description 04/02/2014 Hospital Encounter HX [facility] OWOC FAMILYPRA GrandLizandro simon, P.ARodrigo-Nadya [address] [place], [place] [phone] (Wo rk) Social History Tobacco Use Types [...] How often do you attend orthodox or restoration Never 07/04/2019 services? 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 notified of message and she states understanding. This was faxed to [facility] in [place] per patient request. Addendum by AJAY OG [...] day(s) Refills: 0 Substitutions Allowed Print - [id number] Signed by LEXII MINOR PA-C 04/08/2014 10:15:19 [...] Last Refill Date:02-06-2014 Additional Information:Please advise in C.Grandalfred absense, patient has 4 tablets left. B/P 118/76,[id number] on 04-02-2014, weight x7 weeks ago , 108.2 B/p 112/76 Last / Future Appointment: Disposition: ( ) Send to Pharmacy ( ) Call to Pharmacy ( ) Patient will nut picker Script ( ) Mail Rx to Patient Source: [facility] POWERCHART Document Id: [id number] documented in this encounter Plan of Treatment Upcoming Encounters Date Type Specialty Care Team Description 10/19/2022 Procedure visit Neurology Marina Winter M.D., M.P.H. [address] [place], [place] [phone] (Wo rk) Scheduled Procedures Name Priority Associated Diagnoses Date/Time LIFT THIGH Excessive And Redundant Skin And Subcutaneous Tissue documented as of this encounter Visit Diagnoses Not on filedocumented in this encounter Additional Health Concerns Assessment Noted Time PHQ-9 Depression Total Score: 5 02/18/2014 10:07 AM CD T documented as of this encounter
--- OUTSIDE RECORDS SUMMARY | 2022-09-05 06:14 | XMS_ITS | Encounter Summary ---
:1985 Author Organization [facility] Address [address] [place] [address] Care Team Providers Name Role Phone Unavailable Primary Care Provider Unavailable Encounter Details Date Type Department Care Team Description 02/09/2014 Hospital Encounter HX [facility]OC FAMILYPRA Grandalfred, Lizandro Olguin, P.ARodrigo-Nadya [address] [place], [place] [phone] (Wo rk) Social History Tobacco Use Types [...] How often do you attend uatsdin or adventism Never 07/04/2019 services? 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 encounter Last Filed Vital Signs Vital Sign Reading Time Taken Comments Blood Pressure 102/72 02/09/2014 10:50 AM CDT Pulse - - Temperature - - Respiratory Rate - - Oxygen Saturation - - Inhaled Oxygen Concentration - - Weight 107 kg (235 lb 14.3 oz) 02/09/2014 10:50 AM CDT Height - - Body Mass Index 39.54 11/17/2013 10:08 AM HAND FLESHER documented in this encounter Nursing Notes Chapis [...] CHAPIS DAVALOS - 02/09/2014 10:50 CDT Source: [employer] POWERCHART Document Id: [id number] CDT!9 documented in this encounter Plan of Treatment Upcoming Encounters Date Type Specialty Care Team Description 10/19/2022 Procedure visit Neurology Marina Winter M.D., M.P.H. [address] [phone] (Wo rk) Scheduled Procedures Name Priority Associated Diagnoses Date/Time LIFT THIGH Excessive And Redundant Skin And Subcutaneous Tissue documented as of this encounter Visit Diagnoses Not on filedocumented in this encounter Additional Health Concerns Assessment Noted Time PHQ-9 Depression Total Score: 5 07/09/2013 9:08 AM CDT documented as of this encounter
--- OUTSIDE RECORDS SUMMARY | 2022-09-05 06:14 | XMS_ITS | Encounter Summary ---
:1985 Author Organization [facility] Address [address] [place] [address] Care Team Providers Name Role Phone Unavailable Primary Care Provider Unavailable Encounter Details Date Type Department Care Team Description 11/17/2013 Hospital Encounter HX [facility] Christine Waddell M.D. [address], [address] [address] (Wo rk) Social History Tobacco Use Types [...] How often do you attend hindu or cheondoism Never 07/04/2019 services? 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 - 11/17/2013 9:49 AM CST [id number] Reason for visit is concern regarding excessive [...] to burn calories. I specifically recommended the [employer] workout application to show her how to do low-impact calisthenic exercises that can help burn calories. Today we have planned for a 3-month followup for a check on her weight and BMI and to encourage her to continue to lose weight. Ovidio is not able to lose weight using self-monitoring means [facility]. Length of today's visit was 15 minutes. Indiana Hanna M.D./mercedes Electronically Signed By: INDIANA HANNA On: 11/18/2013 10:40 AM Source: [facility] MHSDOLBEYNONRADSYS Document Id: [id number] CH PIPE LAYER HELPER documented in this encounter Miscellaneous Notes Miscellaneous - Indiana Hanna M.D. - 11/17/2013 11:09 AM CST Ambulatory Patient Summary [address] [address] Visit Information Name: JOSEPHINE ROBINSSSMARIEL ORANTESE [facility] Number: [id number] Current Date: 11/17/2013 11:09:37 Physicians Attending Provider: INDIANA HANNA Primary Care Provider: LEXII MINOR PA-C TAYEJOSEPHINE KEYSSSMARIEL ORANTESE has been given the following list [...] appointment detail needed. Your Goals/Additional instructions: Source: [facility] POWERCHART Document Id: [id number] CH PIPE LAYER HELPER Miscellaneous - Indiana Hanna M.D. - 11/17/2013 11:09 AM CST Ambulatory Depart Summary [address] [address] Visit Information Name: TAYE, NANCY ELIZABETH [facility] Number: [id number] Visit Date: 11/17/2013 11:09:25 Attending Provider: INDIANA HANNA Primary Care Provider: LEXII MINOR PA-C JOSEPHINE ROBINSSSICA ELIZABETH has been given the following list [...] in case of emergency. Additional Information: Source: [facility] POWERCHART Document Id: [id number] CH PIPE LAYER HELPER Miscellaneous - Slava Hartmann, R.N. - 11/17/2013 10:08 AM CST Adult Gusset Maker Intake/History Adult Gusset Maker Intake/History Entered On: 11/17/2013 10:12 TRENCH PIPE LAYER HELPER Performed On: 11/17/2013 10:08 TRENCH PIPE LAYER HELPER by SLAVA HARTMANN Intake Chief Complaint : [...] 39.02 kg/m2 SLAVA HARTMANN - 11/17/2013 10:08 TRENCH PIPE LAYER HELPER General Info Information Given By : Patient Languages : Uzbek SLAVA HARTMANN - 11/17/2013 10:08 TRENCH PIPE LAYER HELPER Subjective Pain Symptoms : No SLAVA HARTMANN - 11/17/2013 10:08 TRENCH PIPE LAYER HELPER Dependent Habits Tobacco Use/Currently Using : Yes Exposure to Tobacco Smoke : Other: never Smoking Status : Never smoker SLAVA HARTMANN - 11/17/2013 10:08 TRENCH PIPE LAYER HELPER Tobacco Use Grid Other Tobacco Frequency : never SLAVA HARTMANN - 11/17/2013 10:08 TRENCH PIPE LAYER HELPER Caffeine Use Grid Caffeine Use : Current Type : Soft drinks Frequency : Daily SLAVA HARTMANN - 11/17/2013 10:08 TRENCH PIPE LAYER HELPER Source: [employer] Document Id: [id number] TRENCH PIPE LAYER HELPER!33 CH PIPE LAYER HELPER documented in this encounter Plan of Treatment Upcoming Encounters Date Type Specialty Care Team Description 10/19/2022 Procedure visit Neurology Marina Winter M.D., M.P.H. [address] [phone] (Wo rk) Scheduled Procedures Name Priority Associated Diagnoses Date/Time LIFT THIGH Excessive And Redundant Skin And Subcutaneous Tissue documented as of this encounter Visit Diagnoses Not on filedocumented in this encounter Additional Health Concerns Assessment Noted Time PHQ-9 Depression Total Score: 5 07/09/2013 9:08 AM CDT documented as of this encounter
--- OUTSIDE RECORDS SUMMARY | 2022-09-05 06:14 | XMS_ITS | Encounter Summary ---
:1985 Author Organization [facility] Address [address] [place] [address] Care Team Providers Name Role Phone Unavailable Primary Care Provider Unavailable Encounter Details Date Type Department Care Team Description 04/26/2013 Hospital Encounter HX NO MAPPING Molly Clark Jr., M.D. [address] [place], [place] [phone] (Wo rk) Social History [...] How often do you attend restorationism or religion Never 07/04/2019 services? 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 [address] [phone] (Wo rk) Scheduled Procedures Name Priority Associated Diagnoses Date/Time LIFT THIGH Excessive And Redundant Skin And Subcutaneous Tissue documented as of this encounter Visit Diagnoses Not on filedocumented in this encounter Additional Health Concerns Assessment Noted Time PHQ-9 Depression Total Score: 17 05/07/2012 1:10 PM CD T documented as of this encounter
--- OUTSIDE RECORDS SUMMARY | 2022-09-05 06:14 | XMS_ITS | Encounter Summary ---
:1985 Author Organization [facility] Address [address] [place] [address] Care Team Providers Name Role Phone Unavailable Primary Care Provider Unavailable Encounter Details Date Type Department Care Team Description 04/19/2013 Hospital Encounter HX NO MAPPING Sesar Callahan M.D. [address] [place], [place] [phone] (Wo rk) Social History Tobacco Use Types [...] How often do you attend taoist or restoration Never 07/04/2019 services? 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 [address] [place] [phone] (Wo rk) Scheduled Procedures Name Priority Associated Diagnoses Date/Time LIFT THIGH Excessive And Redundant Skin And Subcutaneous Tissue documented as of this encounter Visit Diagnoses Not on filedocumented in this encounter Additional Health Concerns Assessment Noted Time PHQ-9 Depression Total Score: 17 05/07/2012 1:10 PM CD T documented as of this encounter
--- OUTSIDE RECORDS SUMMARY | 2022-09-05 06:14 | XMS_ITS | Encounter Summary ---
:[address] [facility] Address [address] [place] [address] Care Team Providers Name Role Phone Unavailable Primary Care Provider Unavailable Encounter Details Date Type Department Care Team Description 06/23/2013 Hospital Encounter HX [facility] Bryson sEcobar Jr., M.D. [address] [place], [place] [phone] (Wo rk) Social History [...] How often do you attend latter-day or bahai Never 07/04/2019 services? 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 - 06/23/2013 1:14 PM CDT [id number] CHIEF COMPLAINT/REASON FOR VISIT: visit. HISTORY OF [...] patient will contact the clinic with any FRAME CARVER SPINDLE related questions and concerns. This document serves as a record of services personally performed by Bryson Hoang MD. It was created on their behalf by Maldonado Nick, a trained medical assistant float. The creation of this record is based on the scribe's personal observations and the provider's statements to them. This document has been checked and approved by the attending provider. Bryson Hoang M.D./jonh Electronically Signed By: BRYSON HOANG MD On: 06/23/2013 02:57 PM Source: [facility] MHSDOLBEYNONRADSYS Document Id: [id number] documented in this encounter Procedure Notes Nicki Vaz, R.NRodrigo - 06/23/2013 1:29 PM CDT Hemoglobin POC Hemoglobin POC Entered On: 06/23/2013 13:29 CDT Performed On: 06/23/2013 13:29 CDT by NICKI PAIGE Hemoglobin POC Hgb POC : 12.7 gm/dL Site : Finger NICKI PAIGE - 06/23/2013 13:29 CDT Source: [facility] POWERCHART Document Id: [id number] CDT!4 documented in this encounter Miscellaneous Notes Miscellaneous - Bryson Hoang Jr., M.D. - 06/23/2013 1:43 PM CDT Ambulatory [place] [address] Visit Information Name: NANCY ROBINS [facility] Number: [id number] Current Date: 06/23/2013 13:43:34 [...] No Appointments found Your Goals/Additional instructions: Source: [facility] POWERCHART Document Id: [id number] Miscellaneous - Bryson Hoang Jr., M.D. - 06/23/2013 1:43 PM CDT Ambulatory [place] [address] Visit Information Name: NANCY ROBINS [facility] Number: [id number] Visit Date: 06/23/2013 13:43:33 [...] your provider for clarification. 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 [address] [phone] (Wo rk) Scheduled Procedures [...]
--- OUTSIDE RECORDS SUMMARY | 2022-09-05 06:14 | XMS_ITS | Encounter Summary ---
:1985 Author Organization [facility] Address [address] [place] [address] Care Team Providers Name Role Phone Unavailable Primary Care Provider Unavailable Encounter Details Date Type Department Care Team Description 12/22/2013 Hospital Encounter HX [facility] FAMILYPRA GrandLizandro simon, P.ARodrigo-Nadya [address] [facility] [place], [place] [phone] (Wo rk) Social History Tobacco Use Types [...] How often do you attend samaritan or mandaeism Never 07/04/2019 services? 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 documented as of this encounter Last Filed Vital Signs Vital Sign Reading Time Taken Comments Blood Pressure 122/74 12/22/2013 12:32 PM HYDRAULIC GOVERNOR ASSEMBLER Pulse - - Temperature - - Respiratory Rate - - Oxygen Saturation - - Inhaled Oxygen Concentration - - Weight 107 kg (235 lb 0.2 oz) 12/22/2013 12:32 PM HYDRAULIC GOVERNOR ASSEMBLER Height - - Body Mass Index 39.39 11/17/2013 10:08 AM HYDRAULIC GOVERNOR ASSEMBLER documented in this encounter Nursing Notes Conversion, Historical Provider Ser - 12/22/2013 12:32 PM CST Nurse Only Documentation Nurse Only Documentation Entered On: 12/22/2013 12:34 HYDRAULIC GOVERNOR ASSEMBLER Performed On: 12/22/2013 12:32 HYDRAULIC GOVERNOR ASSEMBLER by ANGEL BROWN Nurse Only Documentation Nurse Only Visit Documentation : Patient here for a phentermine 37.5mg refill. 11/17/13 BP 126/80 Wt 105.6kg TODAY BP 122/74 Wt 106.6kg ANGEL BROWN - 12/22/2013 12:32 HYDRAULIC GOVERNOR ASSEMBLER Vitals/Ht/Wt Systolic Blood Pressure : 122 mmHg Diastolic Blood Pressure : 74 mmHg NIBP Mean : 90 mmHg BP Location : Right upper extremity Blood Pressure Cuff Size : Regular Actual Weight : 106.6 kg(Converted to: 235 lb 0 oz) Dosing Weight Clinic : 106.6 kg ANGEL BROWN - 12/22/2013 12:32 HYDRAULIC GOVERNOR ASSEMBLER [facility] Document Id: [id number] HYDRAULIC GOVERNOR ASSEMBLER!11 documented in this encounter Miscellaneous Notes Miscellaneous - Conversion, Historical Provider Ser - 12/22/2013 12:37 PM HYDRAULIC GOVERNOR ASSEMBLER Phentermine Refill Document Contains Addenda Addendum by AJAY OG LPN on 23 December 2013 11:18:38 HYDRAULIC GOVERNOR ASSEMBLER Pt. Notified Addendum by LEXII MINOR PA-C on 23 December 2013 07:54:59 HYDRAULIC GOVERNOR ASSEMBLER From: LEXII MINOR PA-C To: JACEY Minor Nurse; Sent: 12/23/2013 07:54:59 HYDRAULIC GOVERNOR ASSEMBLER Subject: FW: Phentermine Refill Please notify patient RX printed. CG Addendum by LEXII MINOR PA-C on 23 December 2013 07:54:31 HYDRAULIC GOVERNOR ASSEMBLER Submitted: Order:phentermine (phentermine 37.5 mg oral tablet) 1 tab(s) PO Daily Qty: 30 tab(s) Duration: 30 day(s) Refills: 0 Substitutions Allowed Print - [id number] Signed by LEXII MINOR PA-C 12/23/2013 07:54:04 From: ANGEL BROWN (OW Plate Nurse) To: LEXII MINOR PA-C; Cc: JACEY Minor Nurse; Sent: 12/22/2013 12:37:02 HYDRAULIC GOVERNOR ASSEMBLER Subject: Phentermine Refill Patient here for a phentermine 37.5mg refill. 11/17/13 BP 126/80 Wt 105.6kg TODAY BP 122/74 Wt 106.6kg She would like a refill sent to the info desk. Please call when it is ready to get picked up. She ishopeing to get it sunday. Source: [facility] POWERCHART Document Id: [id number] documented in this encounter Plan of Treatment Upcoming Encounters Date Type Specialty Care Team Description 10/19/2022 Procedure visit Neurology Marina Winter M.D., M.P.H. [address] [phone] (Wo rk) Scheduled Procedures Name Priority Associated Diagnoses Date/Time LIFT THIGH Excessive And Redundant Skin And Subcutaneous Tissue documented as of this encounter Visit Diagnoses Not on filedocumented in this encounter Additional Health Concerns Assessment Noted Time PHQ-9 Depression Total Score: 5 07/09/2013 9:08 AM CDT documented as of this encounter
--- OUTSIDE RECORDS SUMMARY | 2022-09-05 06:14 | XMS_ITS | Encounter Summary ---
:1985 Author Organization [facility] Address [address] [place] [address] Care Team Providers Name Role Phone Unavailable Primary Care Provider Unavailable Encounter Details Date Type Department Care Team Description 06/04/2013 Hospital Encounter HX [facility] F[facility]V Bryson Escobar Jr., M.D. [address] [place], [place] [phone] (Wo rk) Social History [...] How often do you attend gnosticist or yarsanism Never 07/04/2019 services? 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 - 06/04/2013 3:31 PM CDT [id number] CHIEF COMPLAINT/REASON FOR VISIT: Nexplanon insertion HISTORY [...] She will contact the clinic with any INFERTILITY NURSE related questions and concerns. This document serves as a record of services personally performed by Bryson Hoang MD. It was created on their behalf by Maldonado Nick, a trained certified medical biller. The creation of this record is based on the scribe's personal observations and the provider's statements to them. This document has been checked and approved by the attending provider. Bryson Hoang M.D./jonh Electronically Signed By: BRYSON HOANG MD On: 06/04/2013 04:16 PM Source: [facility] MHSDOLBEYNONRADSYS Document Id: [id number] documented in this encounter Miscellaneous Notes Miscellaneous - Bryson Hoang Jr., M.D. - 06/04/2013 3:52 PM CDT Ambulatory Patient Summary [facility] [address] [place] [address] Visit Information Name: NANCY ROBINS [facility] Number: [id number] Current Date: 06/04/2013 15:52:03 [...] Time Location Reason Provider 06/11/2013 13:15 OWOC [facility] weight loss would like to discuss phentermine Griselda Mckeon PA-C 06/23/2013 13:30 FBCV INFERTILITY NURSE post Bryson Hoang MD Your Goals/Additional instructions: Source: [facility] POWERCHART Document Id: [id number] Miscellaneous - Bryson Hoang Jr., M.D. - 06/04/2013 3:52 PM CDT [place] [address] Visit Information Name: NANCY ROBINS [facility] Number: [id number] Visit Date: 06/04/2013 15:52:03 [...] provider for clarification. Additional Information: [facility] Document Id: [id number] Miscellaneous - Nicki Vaz RRodrigoNRodrigo - 06/04/2013 3:38 PM CDT Adult Regional Vice President Life Sales Intake/History Adult Regional Vice President Life Sales Intake/History Entered On: 06/04/2013 15:39 CDT Performed [...] 06/04/2013 15:38 CDT General Info Languages : Japanese NICKI PAIGE - 06/04/2013 15:38 CDT Subjective Pain Symptoms : No NICKI PAIGE 06/04/2013 15:38 CDT Dependent Habits Tobacco Use/Currently Using : No Tobacco Use/Last 12 months : No Exposure to Tobacco Smoke : Other: never Smoking Status : Never smoker NICKI PAIGE - 06/04/2013 15:38 CDT Tobacco Use Grid Other Tobacco Frequency : never NICKI PAIGE 06/04/2013 15:38 CDT Caffeine Use Grid Caffeine Use : Current Type : Soft drinks Frequency : Daily NICKI PAIGE - 06/04/2013 15:38 CDT [facility] Document Id: [id number] CDT!28 documented in this encounter Plan of Treatment Upcoming Encounters Date Type Specialty Care Team Description 10/19/2022 Procedure visit Neurology Marina Winter M.D., M.P.H. [address] [phone] (Wo rk) Scheduled Procedures Name Priority Associated Diagnoses Date/Time LIFT THIGH Excessive And Redundant Skin And Subcutaneous Tissue documented as of this encounter Visit Diagnoses Not on filedocumented in this encounter Additional Health Concerns Assessment Noted Time PHQ-9 Depression Total Score: 17 05/07/2012 1:10 PM CD T documented as of this encounter
--- OUTSIDE RECORDS SUMMARY | 2022-09-05 06:14 | XMS_ITS | Encounter Summary ---
:1985 Author Organization [facility] Address [address] [place] [address] Care Team Providers Name Role Phone Unavailable [...] How often do you attend religious or advent Never 07/04/2019 services? 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 - 04/23/2013 8:21 AM CDT [id number] CHIEF COMPLAINT / REASON FOR VISIT Routine OB visit HISTORY OF PRESENT ILLNESS This patient is a 28-year-old G4 P 2-0-1-2 female with LMP 08/13/2012. EDC 05/21/2013 at 36-0/7 weeks. Patient presents for OB visit. She is doing well. She was seen in labor and delivery on 04/20/2013 with elevated blood pressure and concern for preeclampsia. The patient was transferred to [facility]. She was observed overnight at [facility] and discharged home with normal [...] History. 1. section , 38 weeks female 7 pounds 4 ounces for arrest of [...] that it was normal. We will contact [facility] to obtain this result 6. Follow up in [address] Clark as scheduled or be seen sooner p.r.jerson.. Kit Hathaway M.D./gia Electronically Signed By: KIT HATHAWAY MD On: 04/25/2013 11:35 AM Source: [facility] Document Id: [id number] documented in this encounter Miscellaneous Notes Miscellaneous - Kit Hathaway M.D. - 04/23/2013 9:14 AM CDT [place] [address] Visit Information Name: NANCY ROBINS [facility] Number: [id number] Current Date: 04/23/2013 09:14:32 [...] Disorder, Recurrent Episode, Unspecified Degree Active 02/27/2011 04/25/11 depression, recurrent. 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 [employer] Document Id: [id number] Miscellaneous - Kit Hathaway M.D. - 04/23/2013 9:14 AM CDT [place] [address] Visit Information Name: NANCY ROBINS [facility] Number: [id number] Visit Date: 04/23/2013 09:14:31 Attending Provider: KIT HATHAWAY MD Primary Care Provider: LEXII MINOR TAYE NANCY JOHNSON has been given the following [...] your provider for clarification. Additional Information: Source: [facility] rPathCHART Document Id: [id number] Miscellaneous - Alexandra العلي L.P.N. - 04/23/2013 8:25 AM CDT Adult Director Of Strategic Marketing Intake/History Adult Director Of Strategic Marketing Intake/History Entered On: 04/23/2013 8:27 CDT Performed [...] 04/23/2013 8:25 CDT General Info Languages : Belgian ALEXANDRA العلي - 04/23/2013 8:25 CDT Subjective [...] ALEXANDRA العلي - 04/23/2013 8:25 CDT Source: [facility] POWERCHART Document Id: [id number] CDT!27 documented in this encounter Plan of Treatment Upcoming Encounters Date Type Specialty Care Team Description 10/19/2022 Procedure visit Neurology Marina Winter M.D., M.P.H. [address] [place] [phone] (Wo rk) Scheduled Procedures Name Priority Associated Diagnoses Date/Time LIFT THIGH Excessive And Redundant Skin And Subcutaneous Tissue documented as of this encounter Visit Diagnoses Not on filedocumented in this encounter Additional Health Concerns Assessment Noted Time PHQ-9 Depression Total Score: 17 05/07/2012 1:10 PM CD T documented as of this encounter
--- OUTSIDE RECORDS SUMMARY | 2022-09-05 06:14 | XMS_ITS | Encounter Summary ---
:1985 Author Organization [facility] Address [address] [place] [address] Care Team Providers Name Role Phone Unavailable Primary Care Provider Unavailable Encounter Details Date Type Department Care Team Description 04/30/2013 Hospital Encounter HX [facility] Bryson Escobar Jr., M.D. 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 - 04/30/2013 1:53 PM CDT [id number] CHIEF COMPLAINT/REASON FOR VISIT: OB visit. HISTORY [...] and will contact the clinic with any LEASING ASSISTANT related questions and concerns prior to this [...] HOANG MD On: 04/30/2013 06:08 PM Source: [facility] MHSDOLBEYNONRADSYS Document Id: [id number] documented in this encounter Miscellaneous Notes Miscellaneous - Bryson Hoang Jr., M.D. - 04/30/2013 2:18 PM CDT [place] [address] Visit Information Name: NANCY ROBINS [facility] Number: [id number] Current Date: 04/30/2013 14:18:41 Physicians [...] No Appointments found Your Goals/Additional instructions: Source: [facility] POWERCHART Document Id: [id number] Miscellaneous - Bryson Hoang Jr., M.D. - 04/30/2013 2:18 PM CDT [place] [address] Visit Information Name: TAYE, NANCY ELIZABETH [facility] Number: [id number] Visit Date: 04/30/2013 14:18:40 Attending [...] your provider for clarification. Additional Information: Source: [facility] [employer] Document Id: [id number] Miscellaneous - Nicki Vaz RCiera - 04/30/2013 1:57 PM CDT Adult Daycare Teacher Intake/History Adult Daycare Teacher Intake/History Entered On: 04/30/2013 13:58 CDT Performed On: 04/30/2013 13:57 CDT by NICKI PAIGE Intake Chief Complaint : OB visit 37 12/12 Systolic Blood Pressure : 102 mmHg Diastolic Blood Pressure : 64 mmHg NIBP Mean : 77 mmHg BP Location : Left upper extremity Blood Pressure Cuff Size : Large Actual Weight : 122.9 kg(Converted to: 270 lb 15 oz) Dosing Weight Clinic : 122.9 kg NICKI PAIGE - 04/30/2013 13:57 CDT General Info Languages : Cameroonian NICKI PAIGE - 04/30/2013 13:57 CDT Subjective [...] NICKI PAIGE - 04/30/2013 13:57 CDT Source: [facility] [employer] Document Id: [id number] CDT!26 documented in this encounter Plan of Treatment Upcoming Encounters Date Type Specialty Care Team Description 10/19/2022 Procedure visit Neurology Marina Winter M.D., M.P.H. [address] [place] [phone] (Wo rk) Scheduled Procedures Name Priority Associated Diagnoses Date/Time LIFT THIGH Excessive And Redundant Skin And Subcutaneous Tissue documented as of this encounter Visit Diagnoses Not on filedocumented in this encounter Additional Health Concerns Assessment Noted Time PHQ-9 Depression Total Score: 17 05/07/2012 1:10 PM CD T documented as of this encounter
--- OUTSIDE RECORDS SUMMARY | 2022-09-05 06:14 | XMS_ITS | Encounter Summary ---
:1985 Author Organization [facility] Address [address] [place] [address] Care Team Providers Name Role Phone Unavailable [...] How often do you attend religion or muslim Never 07/04/2019 services? Do you [...] Procedure visit Neurology Marina Winter M.D., M.P.H. [address] [phone] (Wo rk) Scheduled Procedures Name Priority Associated Diagnoses Date/Time LIFT THIGH Excessive And Redundant Skin And Subcutaneous Tissue documented as of this encounter Visit Diagnoses Not on filedocumented in this encounter Additional Health Concerns Assessment Noted Time PHQ-9 Depression Total Score: 17 05/07/2012 1:10 PM CD T documented as of this encounter
--- OUTSIDE RECORDS SUMMARY | 2022-09-05 06:14 | XMS_ITS | Encounter Summary ---
:1985 Author Organization [facility] Address [address] [place] [address] Care Team Providers Name Role Phone Unavailable Primary Care Provider Unavailable Encounter Details Date Type Department Care Team Description 04/20/2014 Hospital Encounter HX [facility] OWOC FAMILYPRA GrandLizandro simon, P.ARodrigo-Nadya [facility] [place], [place] [phone] (Wo rk) Social History Tobacco Use Types [...] How often do you attend scientologist or uatsdin Never 07/04/2019 services? 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 No radicular symptoms. MEDICATIONS Reviewed [facility] EMR dated 04/20/2014 and no changes. ALLERGIES No known drug allergies. VITAL SIGNS Reviewed [facility] EMR dated 04/20/2014 and no changes. PHYSICAL [...] son is undergoing some specialty evaluation at [facility] for behavior and developmental delays. [...] MINOR PA-C On: 04/24/2014 01:07 PM Source: [facility] MHSDOLBEYNONRADSYS Document Id: [id number] documented in this encounter Miscellaneous Notes Miscellaneous - Lexii Minor P.A.-C. P.ARodrigo - 04/20/2014 4:00 PM CDT Work [...] in the future. Nadya Minor PA-C Source: [facility] POWERCHART Document Id: [id number] Electronically signed by Maria R [facility] Collection Card Clerk [id number] at 04/03/2017 2:32 AM CDT Miscellaneous - Marcela Pereyra L.P.N. - 04/20/2014 3:15 PM CDT Adult Song Lyricist Intake/History Adult Song Lyricist Intake/History Entered On: 04/20/2014 15:21 CDT Performed [...] Preferred Communication Mode : Verbal Languages : Egyptian DOROTHEA MARCELA Luna - 04/20/2014 15:15 CDT Subjective Pain Symptoms [...] MARCELA PEREYRA - 04/20/2014 15:15 CDT Source: [employer] Document Id: [id number] CDT!45 documented in this encounter Plan of Treatment Upcoming Encounters Date Type Specialty Care Team Description 10/19/2022 Procedure visit Neurology Marina Winter M.D., M.P.H. [address] [place] [phone] (Wo rk) Scheduled Procedures Name Priority Associated Diagnoses Date/Time LIFT THIGH Excessive And Redundant Skin And Subcutaneous Tissue documented as of this encounter Visit Diagnoses Not on filedocumented in this encounter Additional Health Concerns Assessment Noted Time PHQ-9 Depression Total Score: 5 02/18/2014 10:07 AM CD T documented as of this encounter
--- OUTSIDE RECORDS SUMMARY | 2022-09-05 06:14 | XMS_ITS | Encounter Summary ---
:1985 Author Organization [facility] Address [address] [place] [address] Care Team Providers Name Role Phone Unavailable Primary Care Provider Unavailable Encounter Details Date Type Department Care Team Description 06/11/2013 Hospital Encounter HX [facility] OWOC FAMILYPRA Griselda Baird, ArnoldoA. [address] [place] [address] [place] [address] (Wo rk) Social History Tobacco Use Types [...] How often do you attend presybeterian or gnosticist Never 07/04/2019 services? 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 She is a byig-bh-ezna, taking care of a total of 4 [...] for depression since she was in [place]. In [place], she was started on Paxil. She was then on Celexa for many years, but over time this seemed to not be effective anymore, even at the highest dose. She has done some therapy in the past, and she is not sure she would like to restart that.She has been attending a [facility] support group in [place]. She states that she has been attending [...] the support group members at [facility] in [place], and so she plans to make the [...] COLEMAN PA-C On: 08/24/2013 03:02 PM Source: [facility] MHSDOLBEYNONRADSYS Document Id: [id number] documented in this encounter Miscellaneous Notes Miscellaneous - Griselda Coleman - 06/11/2013 5:17 PM CDT Ambulatory Patient Summary [facility] [address] [place] [address] Visit Information Name: NANCY ROBINS [facility] Number: [id number] Current Date: 06/11/2013 17:17:44 Physicians [...] Time Location Reason Provider 06/23/2013 13:30 FBCV ASSISTANT WINEMAKER post Eduardo RED, Bryson Joel Your Goals/Additional instructions: Source: [facility] POWERCHART Document Id: [id number] Miscellaneous - Griselda Coleman - 06/11/2013 5:17 PM CDT Ambulatory Depart Summary [facility] [address] [place] [address] Visit Information Name: NANCY ROBINS [facility] Number: [id number] Visit Date: 06/11/2013 17:17:44 Attending [...] your provider for clarification. Additional Information: Source: [facility] POWERCHART Document Id: [id number] Miscellaneous - Conversion, Historical Provider Ser - 06/11/2013 1:11 PM CDT Adult Elevator Worker Intake/History Adult Elevator Worker Intake/History Entered On: 06/11/2013 13:16 CDT Performed [...] Preferred Communication Mode : Verbal Languages : Pashto LEXII BRICENO - 06/11/2013 13:11 CDT Subjective Pain Symptoms : No LEXII BRICENO 06/11/2013 13:11 CDT Dependent Habits Tobacco Use/Currently Using : No Exposure to Tobacco Smoke : Other: never Smoking Status : Never smoker LEXII BRICENO - 06/11/2013 13:11 CDT Tobacco Use Grid Other Tobacco Frequency : never LEXII BRICENO - 06/11/2013 13:11 CDT Alcohol Use : Yes LEXII BRICENO - 06/11/2013 13:11 CDT Caffeine Use Grid Caffeine Use : Current Type : Soft drinks Frequency : Weekly Amount : 5-6 cans weekly LEXII BRICENO - 06/11/2013 13:11 CDT Source: [employer] Document Id: [id number] CDT!38 Miscellaneous - Conversion, Historical Provider Ser [...] by History Adult : None LEXII BRICENO 06/11/2013 13:11 CDT Functional Current Daily Living Assistance : None LEXII BRICENO 06/11/2013 13:11 CDT Dependent Habits Tobacco Use/Currently Using : No Exposure to Tobacco Smoke : Other: never Smoking Status : Never smoker KAITYLEXII Nadia - 06/11/2013 13:11 CDT Tobacco Use Grid Other Tobacco Frequency : never BRICENO LEXII Zuniga 06/11/2013 13:11 CDT Caffeine Use Grid Caffeine Use : Current Type : Soft drinks Frequency : Daily BRICENOCARLOSSANTOS Zuniga 06/11/2013 13:11 CDT Psychosocial Domestic Abuse Concerns : None LEXII BRICENO - 06/11/2013 13:11 CDT Advance Directive Advanced Directives : No KAITY LEXII Zuniga 06/11/2013 13:11 CDT Educ Needs Learning Style Preference Adult Grid Patient : Demonstration, Printed materials, Verbal explanation, Video/Educational TV Family : None KAITY LEXII Zuniga 06/11/2013 13:11 CDT Source: [employer] Document Id: [id number] CDT!28 Miscellaneous - Conversion, Historical Provider Ser [...] LEXII BRICENO - 06/16/2013 8:18 CDT Source: [employer] Document Id: [id number] CDT!13 documented in this encounter Plan of Treatment Upcoming Encounters Date Type Specialty Care Team Description 10/19/2022 Procedure visit Neurology Marina Winter M.D., M.P.H. [address] [phone] (Wo rk) Scheduled Procedures Name Priority Associated Diagnoses Date/Time LIFT THIGH Excessive And Redundant Skin And Subcutaneous Tissue documented as of this encounter Visit Diagnoses Not on filedocumented in this encounter Additional Health Concerns Assessment Noted Time PHQ-9 Depression Total Score: 10 06/11/2013 8:18 AM CD T documented as of this encounter
--- OUTSIDE RECORDS SUMMARY | 2022-09-05 06:14 | XMS_ITS | Encounter Summary ---
:1985 Author Organization [facility] Address [address] [place] [address] Care Team Providers Name Role Phone Unavailable Primary Care Provider Unavailable Encounter Details Date Type Department Care Team Description 08/06/2013 Hospital Encounter HX [facility]OC FAMILYPRA Grandalfred, Lizandro Olguin, P.ARodrigo-Nadya [address] [place], [place] [phone] (Wo rk) Social History Tobacco Use Types [...] How often do you attend lutheran or uatsdin Never 07/04/2019 services? 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 - 08/06/2013 11:11 AM CDT [id number] CHIEF COMPLAINT/REASON FOR VISIT Refill phentermine, medication [...] AM Source: [facility] MHSDOLBEYNONRADSYS Document Id: [id number] documented in this encounter Miscellaneous Notes Miscellaneous [...] PA-C Source: [facility] POWERCHART Document Id: [id number] Miscellaneous - Marcela Pereyra, L.P.NRodrigo - 08/06/2013 11:23 AM CDT Adult Planogrammer Intake/History Adult Planogrammer Intake/History Entered On: 08/06/2013 11:27 CDT Performed [...] Preferred Communication Mode : Verbal Languages : Solomon Islander DOROTHEA MARCELA Luna - 08/06/2013 11:23 CDT Subjective Pain Symptoms : No FAVIANROSNHI MARCELA Luna - 08/06/2013 11:23 CDT Dependent Habits Tobacco Use/Currently Using : No Exposure to Tobacco Smoke : Other: never Smoking Status : Never smoker DOROTHEA MARCELA Luna - 08/06/2013 11:23 CDT Tobacco Use Grid Other Tobacco Frequency : never DOROTHEA MARCELA Luna - 08/06/2013 11:23 CDT Alcohol Use : Yes FAVIANROSHNIMARCELA - 08/06/2013 11:23 CDT Caffeine Use Grid Caffeine Use : Current Type : Soft drinks Frequency : Daily DOROTHEA MARCELA Luna - 08/06/2013 11:23 CDT Source: [employer] Document Id: [id number] CDT!35 documented in this encounter Plan of Treatment Upcoming Encounters Date Type Specialty Care Team Description 10/19/2022 Procedure visit Neurology Marina Winter M.D., M.P.H. [address] [phone] (Wo rk) Scheduled Procedures Name Priority Associated Diagnoses Date/Time LIFT THIGH Excessive And Redundant Skin And Subcutaneous Tissue documented as of this encounter Visit Diagnoses Not on filedocumented in this encounter Additional Health Concerns Assessment Noted Time PHQ-9 Depression Total Score: 5 07/09/2013 9:08 AM CDT documented as of this encounter
--- OUTSIDE RECORDS SUMMARY | 2022-09-05 06:14 | XMS_ITS | Encounter Summary ---
:1985 Author Organization [facility] Address [address] [place] [address] Care Team Providers Name Role Phone Unavailable Primary Care Provider Unavailable Encounter Details Date Type Department Care Team Description 05/14/2013 Hospital Encounter HX [facility]BCV Bryson Escobar Jr., M.D. [address] [place], [place] [phone] (Wo rk) Social History [...] How often do you attend scientology or anabaptism Never 07/04/2019 services? 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 - 05/14/2013 4:07 PM CDT [id number] CHIEF COMPLAINT/REASON FOR VISIT Possible incision separation. [...] HOANG MD On: 05/16/2013 09:59 AM Source: [facility] MHSDOLBEYNONRADSYS Document Id: [id number] documented in this encounter Miscellaneous Notes Miscellaneous - Bryson Hoang Jr., M.D. - 05/14/2013 4:25 PM CDT Ambulatory Patient Summary [address] [address] Visit Information Name: NANCY ROBINS [facility] Number: [id number] Current Date: 05/14/2013 16:25:08 Physicians Attending Provider: [...] Time Location Reason Provider 05/30/2013 12:30 FBCV WOMEN'S STUDIES LECTURER post op Bryson Hoang MD 06/23/2013 13:30 FBCV WOMEN'S STUDIES LECTURER post Bryson Hoang MD Your Goals/Additional instructions: Source: [facility] POWERCHART Document Id: [id number] Miscellaneous - Bryson Hoang Jr., M.D. - 05/14/2013 4:25 PM CDT Ambulatory Depart Summary [address] [address] Visit Information Name: NANCY ROBINS [facility] Number: [id number] Visit Date: 05/14/2013 16:25:08 Attending [...] your provider for clarification. Additional Information: Source: [facility] POWERCHART Document Id: [id number] Miscellaneous - Nicki Vaz RRodrigoNRodrigo - 05/14/2013 4:11 PM CDT Adult Medical Records Library Professor Intake/History Adult Medical Records Library Professor Intake/History Entered On: 05/14/2013 16:12 CDT Performed [...] 05/14/2013 16:11 CDT General Info Languages : Nepalese NICKI PAIGE - 05/14/2013 16:11 CDT Subjective [...] NICKI PAIGE - 05/14/2013 16:11 CDT [facility] Document Id: [id number] CDT!28 documented in this encounter Plan of Treatment Upcoming Encounters Date Type Specialty Care Team Description 10/19/2022 Procedure visit Neurology Marina Winter M.D., M.P.H. [address] [phone] (Wo rk) Scheduled Procedures Name Priority Associated Diagnoses Date/Time LIFT THIGH Excessive And Redundant Skin And Subcutaneous Tissue documented as of this encounter Visit Diagnoses Not on filedocumented in this encounter Additional Health Concerns Assessment Noted Time PHQ-9 Depression Total Score: 17 05/07/2012 1:10 PM CD T documented as of this encounter
--- OUTSIDE RECORDS SUMMARY | 2022-09-05 06:14 | XMS_ITS | Encounter Summary ---
:1985 Author Organization [facility] Address [address] [place] [address] Care Team Providers Name Role Phone Unavailable Primary Care Provider Unavailable Encounter Details Date Type Department Care Team Description 09/15/2013 Hospital Encounter HX [facility] OWOC FAMILYPRA Grandalfred, Lizandro Olguin, P.ARodrigo-Nadya [address] [place], [place] [phone] (Wo rk) Social History Tobacco Use Types [...] How often do you attend anabaptist or holiness Never 07/04/2019 services? 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 - 09/15/2013 3:58 PM CST [id number] CHIEF COMPLAINT/REASON FOR VISIT Medication refill, discuss several other concerns. HISTORY OF PRESENT ILLNESS Maria Alejandra is a 28-year-old female who presents today with several concerns. First of all she does havea history of migraine headache and has had a 2-day history of headache that just has not been relieved with her usual arvn-fxt-lrealgp medications. She has found in the past [...] except as noted above. VITAL SIGNS Reviewed [facility] EMR dated 09/15/2013 and no changes. [...] so plans to work out on this. Yvette return on a monthly basis to have nurse recheck blood pressure and weight. She is aware of the potential risks and side effects of the phentermine and is aware that I will continue to provide written prescription refills on a monthly basis as long as blood pressure is stable and weight loss is achieved. Ryne Minor P.A.-C./[facility] Electronically Signed By: RYNE MINOR On: 09/16/2013 05:51 PM Source: [facility] MHSDOLBEYNONRADSYS Document Id: [id number] H CARE PROFESSIONAL documented in this encounter Miscellaneous Notes Telephone Encounter - Joaquina Wiggins R.N. - 09/18/2013 1:58 PM CST pharmacy question Document Contains Addenda Addendum by MARTIN ESCOBAR on 19 September 2013 16:09 YOUTH CARE PROFESSIONAL per ryne minor, patient can try selsum blue otc. Patient informed. Will call back if needed Modified by and Electronically Signed by: MARTIN ESCOBAR On: 09/19/2013 04:09 PM From: JOAQUINA WIGGINS ([facility]) Sent: 09/18/2013 13:58:23 YOUTH CARE PROFESSIONAL Subject: pharmacy question Caller is: ( ) Patient ( ) Mother ( ) Father ( ) Spouse ( ) Daughter ( ) Son ( Rigo/Lee ) Pharmacy ( ) Other: Physician: Soila [...] back cell phone number ( ) Source: [facility] [employer]Light Document Id: [id number] H CARE PROFESSIONAL Miscellaneous - Ryne Minor P.A.-C., P.A. - 09/16/2013 7:39 AM YOUTH CARE PROFESSIONAL Results Notification Document Contains Addenda Addendum by MARTIN ESCOBAR on 17 September 2013 10:44:26 YOUTH CARE PROFESSIONAL Patient informed Addendum by MARTIN ESCOBAR on 16 September 2013 09:17:34 YOUTH CARE PROFESSIONAL unable to leave message From: RYNE MINOR To: JACEY Minor Nurse; Sent: 09/16/2013 07:39:27 YOUTH CARE PROFESSIONAL ! Show up: 09/16/2013 13:39:27 [facility] Subject: Results Notification Actions: Notify patient of results Reminder Comments: Thyroid normal Results: Date Result Name Value Ref Range 09/15/2013 17:07 TSH 1.66 mIU/L (0.30 - 5.00) Source: [facility] [employer] Document Id: [id number] Electronically signed by Maria R, [facility] Reformatory Attendant [id number] at 04/04/2017 1:21 AM CDT Miscellaneous - Conversion, Historical Provider Ser - 09/15/2013 4:03 PM YOUTH CARE PROFESSIONAL Adult Pals Nurse Intake/History Adult Pals Nurse Intake/History Entered On: 09/15/2013 16:07 YOUTH CARE PROFESSIONAL Performed On: 09/15/2013 16:03 YOUTH CARE PROFESSIONAL by ZORAN OLEARY Intake Chief Complaint : [...] Weight : 105.1 kg(Converted to: 231 lb oz) Weight Source : Standing scale Dosing Weight Clinic : 105.1 kg ZORAN OLEARY - 09/15/2013 16:03 YOUTH CARE PROFESSIONAL General Info Information Given By : Patient Preferred Communication Mode : Verbal Languages : Maldivian ZORAN OLEARY - 09/15/2013 16:03 YOUTH CARE PROFESSIONAL Subjective Pain Symptoms : No ZORAN OLEARY - 09/15/2013 16:03 YOUTH CARE PROFESSIONAL Dependent Habits Tobacco Use/Currently Using : No Exposure to Tobacco Smoke : Other: never Smoking Status : Never smoker ZORAN OLEARY - 09/15/2013 16:03 YOUTH CARE PROFESSIONAL Tobacco Use Grid Other Tobacco Frequency : never ZORAN OLEARY - 09/15/2013 16:03 YOUTH CARE PROFESSIONAL Caffeine Use Grid Caffeine Use : Current Type : Soft drinks Frequency : Daily ZORAN OLEARY - 09/15/2013 16:03 YOUTH CARE PROFESSIONAL Source: [facility] POWERCHART Document Id: [id number] YOUTH CARE PROFESSIONAL!33 documented in this encounter Plan of Treatment Upcoming Encounters Date Type Specialty Care Team Description 10/19/2022 Procedure visit Neurology Marina Winter M.D., M.P.H. [address] [phone] (Wo rk) Scheduled Procedures Name Priority Associated Diagnoses Date/Time LIFT THIGH Excessive And Redundant Skin And Subcutaneous Tissue documented as of this encounter Procedures Procedure Name Priority Date/Time Associated Diagnosis Comme nts THYROID-STIMULATING Routine 09/15/2013 5:07 PM Re sults for this HORMONE-SENSITIVE YOUTH CARE PROFESSIONAL procedure are in (S-TSH) the results section. documented in this encounter Results Thyroid-Stimulating Hormone-Sensitive (s-TSH) (09/15/2013 5:07 PM YOUTH CARE PROFESSIONAL) P athologist Signature TSH 1.66 0.30 - 5.00 POWERCHART (Thyrotropin) MIUL Specimen (Source) Anatomical Collection Method Collection Time Re ceived Time Location / / Volume Laterality Blood 09/15/2013 5:07 PM YOUTH CARE PROFESSIONAL Ryne Minor P.A.-C. LAB BLOOD ADD-ON Performing Organization Address City/State/ZIP Code Phon e Number POWERCHART documented in this encounter Visit Diagnoses Not on filedocumented in this encounter Additional Health Concerns Assessment Noted Time PHQ-9 Depression Total Score: 5 07/09/2013 9:08 AM CDT documented as of this encounter
--- OUTSIDE RECORDS SUMMARY | 2022-09-05 06:14 | XMS_ITS | Encounter Summary ---
:1985 Author Organization [facility] Address [address] [place] [address] Care Team Providers Name Role Phone Unavailable Primary Care Provider Unavailable Encounter Details Date Type Department Care Team Description 07/23/2013 Hospital Encounter HX [facility] FBHB FAMILYPRA Nika Rosales i, M.D. 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 - 07/23/2013 9:26 AM CDT [id number] CHIEF COMPLAINT/ REASON FOR VISIT Ingrown toenail. [...] behalf by Lacey Corley, a trained medical coding technician. The creation of this record is based on the scribe's personal observations and the provider's statements to them. This document has been latricia cked and approved by the attending provider. Nika Rosen M.D./[facility] Electronically Signed By: NIKA ROSEN MD On: 08/04/2013 02:40 PM Source: [facility] MHSDOLBEYNONRADSYS Document Id: [id number] documented in this encounter Miscellaneous Notes Miscellaneous - Nika Ruth M.D. - 07/23/2013 10:28 AM CDT Ambulatory Depart Summary [address] [address] Visit Information Name: NANCY ROBINS [facility] Number: [id number] Visit Date: 07/23/2013 10:28:55 Attending [...] your provider for clarification. Additional Information: Source: [facility] POWERCHART Document Id: [id number] Miscellaneous - Nika Ruth M.D. - 07/23/2013 10:28 AM CDT Ambulatory Patient Summary [address] [address] Visit Information Name: NANCY ROBINS [facility] Number: [id number] Current Date: 07/23/2013 10:28:56 Physicians [...] No Appointments found Your Goals/Additional instructions: Source: [facility] BizGreetCHART Document Id: [id number] Miscellaneous - Conversion, Historical Provider Ser - 07/23/2013 9:34 AM CDT Adult Pad Tufter Intake/History Adult Pad Tufter Intake/History Entered On: 07/23/2013 9:37 CDT Performed On: 07/23/2013 9:34 CDT by MIRNA ORLANDOALYX LUNA [facility] Intake Chief Complaint : left great toe [...] Index : 39.12 kg/m2 MAILE ORLANDO JEREMY [facility] - 07/23/2013 9:34 CDT General Info Information Given By : Patient Languages : Senegalese MAILE ORLANDO JEREMY [facility] - 07/23/2013 9:34 CDT Subjective Pain Symptoms : Yes MAILE ORLANDO JEREMY [facility] - 07/23/2013 9:34 CDT Pain Pain Assessment Grid Pain 1 Location : Other: toe Laterality : Left MAILE ORLANDO JEREMY [facility] - 07/23/2013 9:34 CDT Dependent Habits Tobacco Use/Currently Using : No Exposure to Tobacco Smoke : Other: never Smoking Status : Never smoker MAILE ORLANDO JEREMY [facility] - 07/23/2013 9:34 CDT Tobacco Use Grid Other Tobacco Frequency : never MAILE ORLANDO JEREMY [facility] - 07/23/2013 9:34 CDT Caffeine Use Grid Caffeine Use : Current Type : Soft drinks Frequency : Daily MAILE ORLANDO JEREMY RN FIELD CASE MANAGER - 07/23/2013 9:34 CDT [facility] Document Id: [id number] CDT!38 documented in this encounter Plan of Treatment Upcoming Encounters Date Type Specialty Care Team Description 10/19/2022 Procedure visit Neurology Marina Winter M.D., M.P.H. [address] [phone] (Wo rk) Scheduled Procedures Name Priority Associated Diagnoses Date/Time LIFT THIGH Excessive And Redundant Skin And Subcutaneous Tissue documented as of this encounter Visit Diagnoses Not on filedocumented in this encounter Additional Health Concerns Assessment Noted Time PHQ-9 Depression Total Score: 5 07/09/2013 9:08 AM CDT documented as of this encounter
--- OUTSIDE RECORDS SUMMARY | 2022-09-05 06:14 | XMS_ITS | Encounter Summary ---
:1985 Author Organization [facility] Address [address] [place] [address] Care Team Providers Name Role Phone Unavailable Primary Care Provider Unavailable Encounter Details Date Type Department Care Team Description 04/11/2013 Hospital Encounter HX [facility] FBCV Bryson Escobar Jr., M.D. [address] [place], [place] [phone] (Wo rk) Social History [...] How often do you attend religion or hoahaoism Never 07/04/2019 services? 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 - 04/11/2013 1:46 PM CDT [id number] CHIEF COMPLAINT/REASON FOR VISIT: OB visit. HISTORY [...] 1999 Tonsillectomy and adenoidectomy, 1994 Cholecystectomy, 2005. 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 No history [...] weeks and will contact the clinic with anyOB/[employer] ADMINISTRATOR related questions and concerns prior to this time. This document serves as a record of services personally performed by Bryson Hoang MD. It was created on their behalf by Maldonado Nick, a trained medical insurance claims processor. The creation of this record is based on the scribe's personal observations and the provider's statements to them. This document has been checked and approved by the attending provider. Bryson Hoang M.D./jonh Electronically Signed By: BRYSON HOANG MD On: 04/11/2013 04:25 PM Source: [facility] MHSDOLBEYNONRADSYS Document Id: [id number] documented in this encounter Miscellaneous Notes Miscellaneous - Bryson Hoang Jr., M.D. - 04/11/2013 2:08 PM CDT Ambulatory Patient Summary [facility] [address] [place] [address] Visit Information Name: NANCY ROBINS [facility] Number: [id number] Current Date: 04/11/2013 14:08:32 Physicians [...] No Appointments found Your Goals/Additional instructions: [facility] POWERCHART Document Id: [id number] Miscellaneous - Bryson Hoang Jr., M.D. - 04/11/2013 2:08 PM CDT Ambulatory [place] [address] Visit Information Name: TAYE NANCY FAE [facility] Number: [id number] Visit Date: 04/11/2013 14:08:32 Attending [...] your provider for clarification. Additional Information: Source: [facility] POWERCHART Document Id: [id number] Miscellaneous - Nicki Vaz, R.N. - 04/11/2013 1:53 PM CDT Adult Welder First Class Intake/History Adult Welder First Class Intake/History Entered On: 04/11/2013 13:53 CDT Performed [...] 04/11/2013 13:53 CDT General Info Languages : South African NICKI PAIGE - 04/11/2013 13:53 CDT Subjective [...] NICKI PAIGE - 04/11/2013 13:53 CDT Source: [facility] POWERCHART Document Id: [id number] CDT!26 documented in this encounter Plan of Treatment Upcoming Encounters Date Type Specialty Care Team Description 10/19/2022 Procedure visit Neurology Marina Winter M.D., M.P.H. [address] [place] [phone] (Wo rk) Scheduled Procedures Name Priority [...] (S. Agalactiae) Culture (04/11/2013 2:15 PM CDT) [facility] gist Method Time Signature Grp B Strep POWERCHART (S. agalactiae) Culture HXFinal See POWERCHART scanned/paper report. Test performed at [facility]. Specimen (Source) Anatomical Collection Method Collection Time [...]
--- OUTSIDE RECORDS SUMMARY | 2022-09-05 06:14 | XMS_ITS | Encounter Summary ---
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 - 02/17/2014 11:06 AM CDT [id number] CHIEF COMPLAINT/REASON FOR VISIT Obesity, contraception. HISTORY [...] of a couple plastic surgeons in the [facility] area that she might consider a second opinion or consultation with. She has concerns about her Nexplanon. This was placed on 06/04/2013 in the left upper arm. She was not certain that she could feel both ends of the device; however on exam today I am able to clearly feel the Nexplanon device and it feels completely normal. MEDICATIONS Reviewed [facility] EMR dated 02/17/2014 and no changes. ALLERGIES No known drug allergies. VITAL SIGNS Reviewed [facility] EMR dated 02/17/2014 and no changes. PHYSICAL [...] With regards to the excessive skin in lucyus concern, as above she is given the name of [facility] as well as [facility] Plastic surgery Department and [facility] in [place]. She will check with them regarding consultation and willfollow up as needed. 1. Contraception management. PLAN: Reassurance was provided. The Nexplanon appears to be in appropriate position, and working well. Follow up as needed. Lexii Minor P.A.-C./pepe Electronically Signed By: LEXII MINOR PA-C On: 02/21/2014 01:21 PM Source: [facility] MHSDOLBEYNONRADSYS Document Id: [id number] documented in this encounter Miscellaneous Notes Miscellaneous [...] OG LPN - 02/18/2014 10:07 CDT Source: [facility] POWERCHART Document Id: [id number] CDT!13 Miscellaneous - Conversion, Historical Provider Ser - 02/17/2014 12:01 PM CDT Adult Finishing Range Feeder Intake/History Adult Finishing Range Feeder Intake/History Entered On: 02/17/2014 12:04 CDT Performed [...] Information Given By : Patient Languages : Japanese AJAY OG LPN - 02/17/2014 12:01 CDT [...] OG LPN - 02/17/2014 12:01 CDT [facility] POWERCH[facility] Document Id: [id number] CDT!33 documented in this encounter Plan of Treatment Upcoming Encounters Date Type Specialty Care Team Description 10/19/2022 Procedure visit Neurology Marina Winter M.D., M.P.H. [address] [phone] (Wo rk) Scheduled Procedures Name Priority Associated Diagnoses Date/Time LIFT THIGH Excessive And Redundant Skin And Subcutaneous Tissue documented as of this encounter Visit Diagnoses Not on filedocumented in this encounter Additional Health Concerns Assessment Noted Time PHQ-9 Depression Total Score: 5 02/18/2014 10:07 AM CD T documented as of this encounter
--- OUTSIDE RECORDS SUMMARY | 2022-09-05 06:14 | XMS_ITS | Encounter Summary ---
:1985 Author Organization [facility] Address [address] [place] [address] Care Team Providers Name Role Phone Unavailable [...] How often do you attend congregation or rastafari Never 07/04/2019 services? 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 [address] [phone] (Wo rk) Scheduled Procedures Name Priority Associated Diagnoses Date/Time LIFT THIGH Excessive And Redundant Skin And Subcutaneous Tissue documented as of this encounter Visit Diagnoses Not on filedocumented in this encounter Additional Health Concerns Assessment Noted Time PHQ-9 Depression Total Score: 17 05/07/2012 1:10 PM CD T documented as of this encounter
--- OUTSIDE RECORDS SUMMARY | 2022-09-05 06:15 | XMS_ITS | Encounter Summary ---
:1985 Author Organization [facility] Address [address] [place] [address] Care Team Providers Name Role Phone Unavailable Primary Care Provider Unavailable Encounter Details Date Type Department Care Team Description 03/28/2013 Hospital Encounter HX [facility] Israel Hoang Jr., M.D. 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 - 03/29/2013 2:14 PM CDT Results Notification Document Contains Addenda Addendum by LISA PAIGE on 01 Apr 2013 10:40:06 CDT Results added to chart. From: BRYSON HOANG MD To: LISA PAIGE; Sent: 03/29/2013 14:14:12 CDT ! Show up: 03/29/2013 19:14:12 [facility] Subject: Results Notification Actions: Notify [...] 19.9 % (19.3 - 51.7) 03/28/2013 15:54 [place] % 6.3 % (4.7 - 12.5) 03/28/2013 15:54 Eos % (L) 0.6 % (0.7 - 5.8) 03/28/2013 15:54 Baso % 0.2 % (0.1 - 1.2) 03/28/2013 15:54 Neutro Absolute (H) 8.06 10(9)/L (1.70 - 7.00) 03/28/2013 15:54 Lymph Absolute 2.19 x10(9)/L (0.90 - 2.90) 03/28/2013 15:54 [place] Absolute 0.69 x10(9)/L (0.30 - 0.90) 03/28/2013 15:54 Eos Absolute 0.07 x10(9)/L (0.05 - 0.50) 03/28/2013 15:54 Baso Absolute 0.02 x10(9)/L (0.00 - 0.30) 03/28/2013 15:54 Differential? Auto Source: [facility] POWERCHART Document Id: [id number] Electronically signed by Conversion, [facility] Child Support Agent [id number] at 04/04/2017 1:00 PM CDT documented in this encounter Plan of Treatment Upcoming Encounters Date Type Specialty Care Team Description 10/19/2022 Procedure visit Neurology Marina Winter M.D., M.P.H. [address] [phone] (Wo rk) Scheduled Procedures [...] (ABNORMAL) Automated Differential (03/28/2013 3:54 PM CDT) [facility] gist Method Time Signature Neutro % 73.0 (H) 34.0 - POWERCHART 71.1 Lymphocytes % 19.9 19.3 - POWERCHART 51.7 HX [place] % 6.3 4.7 - 12.5 POWERCHART HX [...] City/State/ZIP Code Phon e Number POWERCHART (ABNORMAL) CBC with Differential (03/28/2013 3:54 PM CDT) Patholo gist Method Time Signature Leukocytes 11.0 (H) 3.4 - 10.5 POWERCHART X109L Erythrocytes 4.39 3.90 - POWERCHART 5.03 Q3060V Hemoglobin 12.6 12.0 - POWERCHART 15.5 GDL [...] M.D. LAB BLOOD ADD-ON Performing Organization Address City/[facility]/ZIP Code Phon e Number POWERCHART Hemoglobin A1c [...]
--- OUTSIDE RECORDS SUMMARY | 2022-09-05 06:15 | XMS_ITS | Encounter Summary ---
:1985 Author Organization [facility] Address [address] [place] [address] Care Team Providers Name Role Phone Unavailable Primary Care Provider Unavailable Encounter Details Date Type Department Care Team Description 02/02/2012 Hospital Encounter [facility]X [facility] Grandalfred, Lizandro Olguin, P.ARodrigo-Nadya [address] [facility] [place], [place] [phone] (Wo rk) Social History Tobacco Use Types [...] often do you attend jehovah's witness or buddhist Never 07/04/2019 services? 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 [address] [place] [phone] (Wo rk) Scheduled Procedures Name Priority Associated Diagnoses Date/Time LIFT THIGH Excessive And Redundant Skin And Subcutaneous Tissue documented as of this encounter Visit Diagnoses Not on filedocumented in this encounter Additional Health Concerns Assessment Noted Time PHQ-9 Depression Total Score: 13 11/13/2011 1:58 PM CS T documented as of this encounter
--- OUTSIDE RECORDS SUMMARY | 2022-09-05 06:15 | XMS_ITS | Encounter Summary ---
:1985 Author Organization [facility] Address [address] [place] [address] Care Team Providers Name Role Phone Unavailable [...] How often do you attend adventism or jew Never 07/04/2019 services? 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 - 11/20/2012 2:04 PM CST [id number] CHIEF COMPLAINT / REASON FOR VISIT First visit. HISTORY OF PRESENT ILLNESS Nancy is a 27-year-old 4, para 2 with 2 previous C-sections, both done in [place], one in 2004, complicated by gestational diabetes [...] CALL MD On: 11/22/2012 04:24 PM [facility] Document Id: [id number] TAL ASSET MANAGER documented in this encounter Nursing Notes Maria [...] CARLOS MIKE On: 11/06/2012 12:31 PM Source: [facility] POWERCHART Document Id: [id number] documented in this encounter Miscellaneous Notes Miscellaneous - Sulema Call M.D. - 11/20/2012 4:42 PM CST Ambulatory Patient Summary [facility] [address] [place] [address] Visit Information Name: NANCY ROBINS [facility] Number: [id number] Current Date: 11/20/2012 16:42:22 Physicians [...] Time Location Reason Provider 12/18/2012 13:45 [facility] SALESPERSON ob check Sulema Call MD 01/01/2013 14:00 [facility] SALESPERSON survey 01/01/2013 15:00 [facility] SALESPERSON ob check Sulema Call MD Your Goals/Additional instructions: Source: [facility] POWERCHART Document Id: [id number] TAL ASSET MANAGER Miscellaneous - Sulema Call M.D. - 11/20/2012 4:42 PM CST Ambulatory Depart Summary [address] [address] Visit Information Name: NANCY ROBINS [facility] Number: [id number] Visit Date: 11/20/2012 16:42:21 Attending [...] your provider for clarification. Additional Information: Source: [facility] POWERCHART Document Id: [id number] TAL ASSET MANAGER Miscellaneous - Conversion, Historical Provider Ser - 11/20/2012 2:19 PM DIGITAL ASSET MANAGER Adult Staff Writer Intake/History Adult Staff Writer Intake/History Entered On: 11/20/2012 14:22 DIGITAL ASSET MANAGER Performed On: 11/20/2012 14:19 DIGITAL ASSET MANAGER by JOSE CARLOS MIKE Intake Chief Complaint [...] 130.70kg JOSE CARLOS MIKE - 11/20/2012 14:19 DIGITAL ASSET MANAGER Subjective Pain Symptoms : No JOSE CARLOS MIKE 11/20/2012 14:19 DIGITAL ASSET MANAGER Dependent Habits Tobacco Use/Currently Using : No Exposure to Tobacco Smoke : Other: never Smoking Status : Never smoker JOSE CARLOS MIKE - 11/20/2012 14:19 DIGITAL ASSET MANAGER Tobacco Use Grid Other Tobacco Frequency : never JOSE CARLOS MIKE 11/20/2012 14:19 DIGITAL ASSET MANAGER Caffeine Use Grid Caffeine Use : Current Type : Soft drinks Frequency : Daily JOSE CARLOS MIKE 11/20/2012 14:19 DIGITAL ASSET MANAGER Allergy Allergies (Active) NKA Estimated Onset Date: Unspecified ; Created By: CECIL ALEGRIA LPN; Reaction Status: Active ; Category: Drug ; Substance: NKA ; Type: Allergy ; Updated By: CECIL ALEGRIA LPN; Reviewed Date: 10/08/2012 8:49 DIGITAL ASSET MANAGER Source: [facility] POWERCHART Document Id: [id number] documented in this encounter Plan of Treatment Upcoming Encounters Date Type Specialty Care Team Description 10/19/2022 Procedure visit Neurology Marina Winter M.D., M.P.H. [address] [phone] (Wo rk) Scheduled Procedures Name Priority Associated Diagnoses Date/Time LIFT THIGH Excessive And Redundant Skin And Subcutaneous Tissue documented as of this encounter Procedures Procedure Name Priority Date/Time Associated Diagnosis Comme nts N GONOR AMP SRC Routine 11/20/2012 4:24 PM Result s for this DIGITAL ASSET MANAGER procedure are i n the results section. N GONOR AMP DNA Routine 11/20/2012 4:24 PM Result s for this DIGITAL ASSET MANAGER procedure are i n the results section. C TRACH AMP SRC Routine 11/20/2012 4:24 PM Result s for this DIGITAL ASSET MANAGER procedure are i n the results section. C TRACH AMP RNA Routine 11/20/2012 4:24 PM Result s for this DIGITAL ASSET MANAGER procedure are i n the results section. PATHOLOGY LANDSCAPE FOREMAN Routine 11/20/2012 12:00 AM Results for this CYTOLOGY DIGITAL ASSET MANAGER procedure are i n the results section. documented in this encounter Results HX-N gonor Amp DNA (11/20/2012 4:24 PM DIGITAL ASSET MANAGER) athologist Signature HXN gonor Amp Negative POWERCHART DNA-Draper Specimen (Source) Anatomical Collection Method Collection Time Re ceived Time Location / / Volume Laterality 11/20/2012 4:24 PM DIGITAL ASSET MANAGER Narrative POWERCHART - 11/21/2012 4:23 PM DIGITAL ASSET MANAGER Test Performed by: [facility] - [address] [address] Manager Reliability: Federico anne III, M.D. Sulema Call M.D. LAB HISTORICAL ORDERS Performing Organization Address City/State/ZIP Code Phon e Number POWERCHART HX-N gonor Amp Src (11/20/2012 4:24 PM DIGITAL ASSET MANAGER) athologist Signature HXN gonor Amp CERVIX POWERCHART Src-Draper Specimen (Source) Anatomical Collection Method Collection Time Re ceived Time Location / / Volume Laterality 11/20/2012 4:24 PM DIGITAL ASSET MANAGER Sulema Call M.D. LAB HISTORICAL ORDERS Performing Organization Address City/State/ZIP Code Phon e Number POWERCHART HX-C trach Amp RNA (11/20/2012 4:24 PM DIGITAL ASSET MANAGER) Patholo gist Method Time Signature Chlamydia Negative POWERCHART trachomatis amplified RNA Specimen (Source) Anatomical Collection Method Collection Time Re ceived Time Location / / Volume Laterality 11/20/2012 4:24 PM DIGITAL ASSET MANAGER Sulema Call M.D. LAB HISTORICAL ORDERS Performing Organization Address City/State/ZIP Code Phon e Number POWERCHART HX-C trach Amp Src (11/20/2012 4:24 PM DIGITAL ASSET MANAGER) P athologist Signature HXC trach Amp CERVIX POWERCHART Src-Draper Specimen (Source) Anatomical Collection Method Collection Time Re ceived Time Location / / Volume Laterality 11/20/2012 4:24 PM DIGITAL ASSET MANAGER Sulema Call M.D. LAB HISTORICAL ORDERS Performing Organization Address City/State/ZIP Code Phon e Number POWERCHART Pathology LANDSCAPE FOREMAN Cytology (11/20/2012 12:00 AM DIGITAL ASSET MANAGER) Specimen (Source) Anatomical Location Collection Method / Collectio n Time Received Time / Laterality Volume 11/20/2012 Narrative [facility] - 11/25/2012 1:49 PM DIGITAL ASSET MANAGER [facility], [address] [address] ? Patient Name: NANCY ROBINS Patient ID #: [id number] Collected: 11/20/2012 Address: City/State/Zip: [address] ??[id number] Received: Reported: 11/21/2012 11/25/2012 Soc. Sec. #: ?/Age/Sex 1985 (Age: 27) ??F Physician(s): QUENTIN CALL MD Copy To: ? [facility] ?? [id number] [address] [facility] [facility], ??[place] ??[address] CYTOPATHOLOGY LANDSCAPE FOREMAN REPORT FINAL CYTOLOGIC DIAGNOSIS Pap Smear - [...]
--- OUTSIDE RECORDS SUMMARY | 2022-09-05 06:15 | XMS_ITS | Encounter Summary ---
:1985 Author Organization [facility] Address [address] [place] [address] Care Team Providers Name Role Phone Unavailable Primary Care Provider Unavailable Encounter Details Date Type Department Care Team Description 05/07/2012 Hospital Encounter [facility]X [facility] Grandalfred, Lizandro Olguin, P.ARodrigo-Nadya [address] [facility] [place], [place] [phone] (Wo rk) Social History Tobacco Use Types [...] How often do you attend sikhism or zoroastrianism Never 07/04/2019 services? 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 - 05/07/2012 12:00 AM CDT [id number] CHIEF COMPLAINT / REASON FOR VISIT Anxiety [...] houses as able. She does have a 18-tijzx-emc son. There has been a bit of confusion with regards to Forest Pathology Professor and assistance. I did state I would contact Forest Pathology Professor on her behalf just to follow up [...] pattern and insight. Appropriate interaction with her [id number]-xhrxa-szb son. IMPRESSION/REPORT/PLAN 1) Increased anxiety and depression with social stressors. PLAN: I will start her on venlafaxine 37.5 mg daily for 1 week and then increase to 75 mg daily thereafter. Usual risks, benefits, side effects and directions were discussed. I will go ahead and contact the [facility] Forest Pathology Professor to inquire about financial options for her. At this point I do not feel there is any neglect of her children however she does need to have an appropriate place to stay. Referral to Forest Pathology Professor was made. 2) Amenorrhea. PLAN: Urine test [...] MINOR On: 05/19/2012 11:06 AM Source: [facility] MHSDOLBEYNONRADSYS Document Id: [id number] documented in this encounter Miscellaneous Notes Miscellaneous - Qi Ibarra M.D. - 05/10/2012 5:53 PM CDT Results Notification Document Contains Addenda Addendum by REBA MELENDEZ on 13 May 2012 16:50:40 CDT Pt notified From: QI IBARRA MD To: REBA MELENDEZ Sent: 05/10/2012 17:53:24 CDT ! Show up: 05/10/2012 22:53:24 [facility] Subject: Results Notification Actions: Notify patient of results Source: [facility] POWERCHART Document Id: [id number] Electronically signed by Maria R [facility] Cook'S Assistant [id number] at 04/08/2017 4:09 AM CDT Miscellaneous - Conversion, Historical Provider Ser - 05/07/2012 1:10 PM CDT PHQ-9 PHQ-9 Entered On: 05/07/2012 13:10 CDT Performed On: 05/07/2012 13:10 CDT by TOÑO FRAGA-9 Little interest or pleasure in doing things [...] FRAGA - 05/07/2012 13:10 CDT Source: [facility] [employer] Document Id: [id number] Miscellaneous - Jenae Minor P.A.-C., P.A. - 05/07/2012 11:16 AM CDT Results Notification Document Contains Addenda Addendum by TOÑO FRAGA on 07 May 2012 14:36:16 CDT patient notified. From: JENAE MINOR To: TOÑO FRAGA Sent: 05/07/2012 11:16:31 CDT ! Show up: 05/07/2012 16:16:31 [facility] Subject: Results Notification Actions: Notify patient of results Source: [facility] [employer] Document Id: [id number] Electronically signed by Maria R [facility] Cook'S Assistant [id number] at 04/08/2017 4:09 AM CDT Miscellaneous - Jenae Minor P.A.-C., P.A. - 05/07/2012 10:45 AM CDT Ambulatory Patient Summary [facility] [address] [place] [address] Visit Information Name: NANCY ROBINS Current Date: [...] Appointments found Your Goals/Additional instructions: Source: [facility] POWERCHART Document Id: [id number] Miscellaneous - Jenae Minor P.A.-C., P.A. - 05/07/2012 10:45 AM CDT Ambulatory Depart Summary [facility] [address] [place] [address] Visit Information Name: NANCY ROBINS Visit Date: 05/07/2012 10:45:53 Attending Provider: JENAE MINOR Primary Care Provider: JENAE MINOR TAYE NANCY JOHNSON has been given [...] provider for clarification. Additional Information: Source: [facility] POWERCHART Document Id: [id number] Miscellaneous - Conversion, Historical Provider Ser - 05/07/2012 9:50 AM CDT Adult Pumping Plant Operator Intake/History Adult Pumping Plant Operator Intake/History Entered On: 05/07/2012 9:53 CDT Performed [...] Preferred Communication Mode : Verbal Languages : Namibian TOÑO FRAGA - 05/07/2012 9:50 CDT Subjective Pain Symptoms : [...] Reviewed Date: 05/07/2012 9:49 CDT Source: [facility] [employer] Document Id: [id number] documented in this encounter Plan of Treatment Upcoming Encounters Date Type Specialty Care Team Description 10/19/2022 Procedure visit Neurology Marina Winter M.D., M.P.H. [address] [phone] (Wo rk) Scheduled [...] 05/10/2012 2:00 PM CDT Test Performed by: [address], [place] [address] Primary Care Physician: Tara Vargas, Ph. D. Jenae Minor P.A.-C. LAB HISTORICAL ORDERS Performing Organization Address City/State/ZIP Code Phon e Number POWERCHART HX-Ngonorr RNA Src (05/07/2012 11:05 AM CDT) athologist Signature Specimen Urine POWERCHART Specimen (Source) Anatomical Collection Method Collection Time Re ceived Time Location / / Volume Laterality 05/07/2012 11:05 AM CDT Jenae Minor P.A.-C. LAB HISTORICAL ORDERS Performing Organization Address City/State/ZIP Code Phon e Number POWERCHART HX-C Trach RNA (05/07/2012 11:05 AM CDT) [facility] gist Method Time Signature Chlamydia Negative POWERCHART trachomatis amplified RNA Specimen (Source) Anatomical Collection Method Collection Time Re ceived Time Location / / Volume Laterality 05/07/2012 11:05 AM CDT Jenae Minor P.A.-C. LAB HISTORICAL ORDERS Performing Organization Address City/State/ZIP Code Phon e Number POWERCHART HX-C Trach RNA Src (05/07/2012 11:05 AM CDT) athologist Signature Specimen Urine POWERCHART Specimen (Source) Anatomical Collection Method Collection Time Re ceived Time Location / / Volume Laterality 05/07/2012 11:05 AM CDT Jenae Minor P.A.-C. LAB HISTORICAL ORDERS Performing Organization Address City/State/ZIP Code Phon e Number POWERCHART Test, Qualitative, Urine (05/07/2012 11:05 AM CDT) Patholo gist Method Time Signature HXBeta-hCG Negative POWERCHART Qualitative Urine Specimen (Source) Anatomical Collection Method Collection Time Re ceived Time Location / / Volume Laterality Urine 05/07/2012 11:05 AM CDT Jenae Minor P.A.-C. LAB URINE ORDERABLES Performing Organization Address City/State/ZIP Code Phon e Number POWERCHART documented in this encounter Visit Diagnoses Not on filedocumented in this encounter Additional Health Concerns Assessment Noted Time PHQ-9 Depression Total Score: 17 05/07/2012 1:10 PM CD T documented as of this encounter
--- OUTSIDE RECORDS SUMMARY | 2022-09-05 06:15 | XMS_ITS | Encounter Summary ---
:1985 Author Organization [facility] Address [address] [place] [address] Care Team Providers Name Role Phone Unavailable Primary Care Provider Unavailable Encounter Details Date Type Department Care Team Description 03/28/2013 Hospital Encounter HX [facility] Bryson Escobar Jr., M.D. [address] [place], [place] [phone] (Wo rk) Social History [...] How often do you attend lutheran or muslim Never 07/04/2019 services? 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 - 03/28/2013 2:46 PM CDT [id number] CHIEF COMPLAINT/REASON FOR VISIT: Transfer of care, [...] She bottle feeds. She recently moved to [place]. She has been testing her blood sugars, fasting 90-100, her after eating blood sugars have been 135 at the highest. movement has been good and she reports that she was counseled on movement counts in [place]. She had her first section for arrest [...] weeks and will contact the clinic with anyOB/OCCUPATIONAL PSYCHOLOGIST related questions and concerns prior to this time. This document serves as a record of services personally performed by Bryson Hoang MD. It was created on their behalf by Maldonado Nick, a trained medical bill processor. The creation of this record is based on the scribe's personal observations and the provider's statements to them. This document has been checked and approved by the attending provider. Bryson Hoang M.D./jonh Electronically Signed By: BRYSON HOANG MD On: 03/28/2013 05:55 PM Source: [facility] MHSDOLBEYNONRADSYS Document Id: [id number] documented in this encounter Miscellaneous Notes Miscellaneous - Bryson Hoang Jr., M.D. - 03/28/2013 3:36 PM CDT Ambulatory [place] [address] Visit Information Name: TAYEJOSEPHINENANCYNAILA JOHNSON [facility] Number: [id number] Visit Date: 03/28/2013 15:36:55 Attending Provider: BRYSON HOANG MD Primary Care Provider: LEXII MINOR TAYENANCY ALEXANDRA ELIZABETH has been given the following list [...] your provider for clarification. Additional Information: Source: [facility] POWERCHART Document Id: [id number] Miscellaneous - Bryson Hoang Jr., M.D. - 03/28/2013 3:36 PM CDT Ambulatory [place] [address] Visit Information Name: NANCY ROBINS [facility] Number: [id number] Current Date: 03/28/2013 15:36:56 Physicians Attending Provider: BRYSON HOANG MD Primary [...] No Appointments found Your Goals/Additional instructions: Source: [facility] POWERCHART Document Id: [id number] Miscellaneous - Nicki Vaz RCiera - 03/28/2013 3:13 PM CDT Adult Audit Officer Intake/History Adult Audit Officer Intake/History Entered On: 03/28/2013 15:15 CDT Performed On: 03/28/2013 15:13 CDT by NICKI PAIGE Intake Chief Complaint : OB visit 32 4/7 weeks Systolic Blood Pressure : 110 mmHg Diastolic Blood Pressure : 62 mmHg NIBP Mean : 78 mmHg BP Location : Left upper extremity Blood Pressure Cuff Size : Large Actual Weight : 126.5 kg(Converted to: 278 lb 14 oz) Dosing Weight Clinic : 126.5 kg NICKI PAIGE - 03/28/2013 15:13 CDT General Info Languages : Romansh NICKI PAIGE - 03/28/2013 15:13 CDT Subjective Pain Symptoms : No NICKI PAIGE - 03/28/2013 15:13 CDT Dependent Habits Tobacco Use/Currently Using : No Exposure to Tobacco Smoke : Other: never Smoking Status : Never smoker NICKI PAIGE - 03/28/2013 15:13 CDT Tobacco Use Grid Other Tobacco Frequency : never NICKI PAIGE - 03/28/2013 15:13 CDT Caffeine Use Grid Caffeine Use : Current Type : Soft drinks Frequency : Daily NICKI PAIGE - 03/28/2013 15:13 CDT Source: [facility] [employer] Document Id: [id number] documented in this encounter Plan of Treatment Upcoming Encounters Date Type Specialty Care Team Description 10/19/2022 Procedure visit Neurology Marina Winter M.D., M.P.H. [address] [phone] (Wo rk) Scheduled Procedures Name Priority Associated Diagnoses Date/Time LIFT THIGH Excessive And Redundant Skin And Subcutaneous Tissue documented as of this encounter Visit Diagnoses Not on filedocumented in this encounter Additional Health Concerns Assessment Noted Time PHQ-9 Depression Total Score: 17 05/07/2012 1:10 PM CD T documented as of this encounter
--- OUTSIDE RECORDS SUMMARY | 2022-09-05 06:15 | XMS_ITS | Encounter Summary ---
:1985 Author Organization [facility] Address [address] [place] [address] Care Team Providers Name Role Phone Unavailable Primary Care Provider Unavailable Encounter Details Date Type Department Care Team Description 09/10/2012 Hospital Encounter HX [facility] Lizandro French, P.AMainor [address] [place], [place] [phone] (Wo rk) Social History Tobacco Use Types [...] How often do you attend buddhism or zoroastrianism Never 07/04/2019 services? 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 - 09/10/2012 5:59 PM MEDICAL GRADE SHOEMAKER Results Notification Document Contains Addenda Addendum by TOÑO FRAGA on 11 September 2012 09:16:42 MEDICAL GRADE SHOEMAKER Patient notified 09/10/12. From: LEXII MINOR To: TOÑO FRAGA Sent: 09/10/2012 17:59:44 MEDICAL GRADE SHOEMAKER ! Show up: 09/10/2012 23:59:44 [facility] Subject: Results Notification Actions: Notify patient of results Source: [facility] [place] POWERCHART Document Id: [id number] Electronically signed by Conversion, [facility] Transcript Clerk [id number] at 04/07/2017 6:55 PM CDT documented in this encounter Plan of Treatment Upcoming Encounters Date Type Specialty Care Team Description 10/19/2022 Procedure visit Neurology Marina Winter M.D., M.P.H. [address] [place] [phone] (Wo rk) Scheduled Procedures Name Priority Associated Diagnoses Date/Time LIFT THIGH Excessive And Redundant Skin And Subcutaneous Tissue documented as of this encounter Procedures Procedure Name Priority Date/Time Associated Diagnosis Comme nts TEST, U Routine 09/10/2012 3:26 PM Resu lts for this MEDICAL GRADE SHOEMAKER procedure are i n the results section. documented in this encounter Results Test, Qualitative, Urine (09/10/2012 3:26 PM MEDICAL GRADE SHOEMAKER) [facility] gist Method Time Signature HXBeta-hCG Weak Pos POWERCHART Qualitative Urine Specimen (Source) Anatomical Collection Method Collection Time Re ceived Time Location / / Volume Laterality Urine 09/10/2012 3:26 PM MEDICAL GRADE SHOEMAKER Lexii Minor P.A.-C. LAB URINE ORDERABLES Performing Organization Address City/State/ZIP Code Phon e Number POWERCHART documented in this encounter Visit Diagnoses Not on filedocumented in this encounter Additional Health Concerns Assessment Noted Time PHQ-9 Depression Total Score: 17 05/07/2012 1:10 PM CD T documented as of this encounter
--- OUTSIDE RECORDS SUMMARY | 2022-09-05 06:15 | XMS_ITS | Encounter Summary ---
:1985 Author Organization [facility] Address [address] [place] [address] Care Team Providers Name Role Phone Unavailable [...] How often do you attend anabaptist or taoism Never 07/04/2019 services? 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 - 02/26/2013 1:19 PM CDT [id number] CHIEF COMPLAINT / REASON FOR VISIT care. [...] I have asked her to see the strip catcher and an appointment is scheduled for that [...] this anddid make an appointment with the strip catcher. VITAL SIGNS BLOOD PRESSURE: 122/68. WEIGHT: 128.9 kilograms, this is a 1.1 kilogram decrease from her last visit. Fundal height 29 cm. The is vertex by Tarik maneuvers with heart tones appreciated inthe 150s in the right lower quadrant. IMPRESSION / REPORT / PLAN 1. Intrauterine . 2. Previous section. 3. Gestational diabetes. PLAN: As mentioned the patient will see the strip catcher. Strict control is stressed and the patient isto call if she is not meeting the goals so that we can determine whether we should proceed with oralhypoglycemic therapy. Sulema Call M.D./bertha cc: Labor and Delivery Electronically Signed By: SULEMA CALL MD On: 02/27/2013 12:41 PM Source: [facility] MHSDOLBEYNONRADSYS Document Id: [id number] documented in this encounter Miscellaneous Notes Miscellaneous - Sulema Call M.D. - 02/26/2013 1:47 PM CDT Ambulatory Patient Summary 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 - 02/26/2013 1:47 PM CDT Ambulatory Depart Summary [facility] [address] [place] [address] Visit Information Name: NANCY ROBINS [facility] Number: [id number] Visit Date: 02/26/2013 13:47:07 Attending [...] your provider for clarification. Additional Information: Source: [facility] [email or web address] Document Id: [id number] Miscellaneous - Conversion, Historical Provider Ser - 02/26/2013 1:30 PM CDT Adult Coater Carbon Paper Intake/History Adult Coater Carbon Paper Intake/History Entered On: 02/26/2013 13:33 CDT Performed [...] Information Given By : Patient Languages : Kuwaiti JOSE CARLOS MIKE - 02/26/2013 13:30 CDT [...] CARLOS MIKE - 02/26/2013 13:30 CDT Source: [facility] [email or web address][email or web address] Document Id: [id number] documented in this encounter Plan of Treatment Upcoming Encounters Date Type Specialty Care Team Description 10/19/2022 Procedure visit Neurology Marina Winter M.D., M.P.H. [address] [phone] (Wo rk) Scheduled Procedures Name Priority Associated Diagnoses Date/Time LIFT THIGH Excessive And Redundant Skin And Subcutaneous Tissue documented as of this encounter Visit Diagnoses Not on filedocumented in this encounter Additional Health Concerns Assessment Noted Time PHQ-9 Depression Total Score: 17 05/07/2012 1:10 PM CD T documented as of this encounter
--- OUTSIDE RECORDS SUMMARY | 2022-09-05 06:15 | XMS_ITS | Encounter Summary ---
:1985 Author Organization [facility] Address [address] [place] [address] Care Team Providers Name Role Phone Unavailable [...] How often do you attend yarsani or sikhism Never 07/04/2019 services? 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 - 01/01/2013 2:47 PM CST [id number] CHIEF COMPLAINT/REASON FOR VISIT care. HISTORY OF [...] over successive days. Sulema Call M.D./shay DOCID: [id number] cc: Labor and Delivery Electronically Signed By: SULEMA CLAL MD On: 01/02/2013 11:23 AM Source: [facility] MHSDOLBEYNONRADSYS Document Id: [id number] DIGGER OPERATOR documented in this encounter Miscellaneous Notes Miscellaneous - Conversion, Historical Provider Ser - 01/01/2013 2:52 PM BACK DIGGER OPERATOR Adult Home Visit Field Care Manager Intake/History Adult Home Visit Field Care Manager Intake/History Entered On: 01/01/2013 14:53 BACK DIGGER OPERATOR Performed On: 01/01/2013 14:52 BACK DIGGER OPERATOR by JOSE CARLOS MIKE Chief Complaint : OB See ACOG LMP Date : 08/13/2012 Ambulatory Intake Additional Information : 20 1/7 week gestation Systolic Blood Pressure : 130mmHg Diastolic Blood Pressure : 66mmHg NIBP Mean : 87mmHg BP Location : Left upper extremity Blood Pressure Cuff Size : Large Actual Weight : 130kg(Converted to: 286lb 10oz) Dosing Weight Clinic : 130.00kg JOSE CARLOS MIKE 01/01/2013 14:52 BACK DIGGER OPERATOR General Info Information Given By : Patient Languages : German JOSE CARLOS MIKE 01/01/2013 14:52 BACK DIGGER OPERATOR Subjective Pain Symptoms : No JOSE CARLOS MIKE 01/01/2013 14:52 BACK DIGGER OPERATOR Dependent Habits Tobacco Use/Currently Using : No Exposure to Tobacco Smoke : Other: never Smoking Status : Never smoker JOSE CARLOS MIKE 01/01/2013 14:52 BACK DIGGER OPERATOR Tobacco Use Grid Other Tobacco Frequency : never JOSE CARLOS MIKE 01/01/2013 14:52 BACK DIGGER OPERATOR Caffeine Use Grid Caffeine Use : Current Type : Soft drinks Frequency : Daily JOSE CARLOS MIKE 01/01/2013 14:52 BACK DIGGER OPERATOR Allergy Allergies (Active) NKA Estimated Onset Date: Unspecified ; Created By: CECIL ALEGRIA LPN; Reaction Status: Active ; Category: Drug ; Substance: NKA ; Type: Allergy ; Updated By: CECIL ALEGRIA LPN; Reviewed Date: 10/08/2012 8:49 BACK DIGGER OPERATOR Source: [employer] Document Id: [id number] documented in this encounter Plan of Treatment Upcoming Encounters Date Type Specialty Care Team Description 10/19/2022 Procedure visit Neurology Marina Winter M.D., M.P.H. [address] [phone] (Wo rk) Scheduled Procedures Name Priority Associated Diagnoses Date/Time LIFT THIGH Excessive And Redundant Skin And Subcutaneous Tissue documented as of this encounter Visit Diagnoses Not on filedocumented in this encounter Additional Health Concerns Assessment Noted Time PHQ-9 Depression Total Score: 17 05/07/2012 1:10 PM CD T documented as of this encounter
--- OUTSIDE RECORDS SUMMARY | 2022-09-05 06:15 | XMS_ITS | Encounter Summary ---
:1985 Author Organization [facility] Address [address] [place] [address] Care Team Providers Name Role Phone Unavailable Primary Care Provider Unavailable Encounter Details Date Type Department Care Team Description 12/27/2012 Hospital Encounter HX [facility] Jose Pressley Jr., M.D. 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 [address] [place] [phone] (Wo rk) Scheduled Procedures Name Priority Associated Diagnoses Date/Time LIFT THIGH Excessive And Redundant Skin And Subcutaneous Tissue documented as of this encounter Visit Diagnoses Not on filedocumented in this encounter Additional Health Concerns Assessment Noted Time PHQ-9 Depression Total Score: 17 05/07/2012 1:10 PM CD T documented as of this encounter
--- OUTSIDE RECORDS SUMMARY | 2022-09-05 06:15 | XMS_ITS | Encounter Summary ---
:1985 Author Organization [facility] Address [address] [place] [address] Care Team Providers Name Role Phone Unavailable [...] How often do you attend adventist or mosque Never 07/04/2019 services? 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 - 09/20/2012 4:36 PM CST [id number] CHIEF COMPLAINT / REASON FOR VISIT Abdominal [...] CALL MD On: 09/24/2012 08:03 AM Source: [facility] MHSDOLBEYNONRADSYS Document Id: [id number] AURANT COOK documented in this encounter Miscellaneous Notes Miscellaneous - Conversion, Historical Provider Ser - 09/20/2012 4:41 PM RESTAURANT COOK Adult Restorative Art Embalmer Intake/History Adult Restorative Art Embalmer Intake/History Entered On: 09/20/2012 16:43 RESTAURANT COOK Performed On: 09/20/2012 16:41 RESTAURANT COOK by JOSE CARLOS MIKE Intake Chief Complaint : NOB 4 extreme cramping LMP Date : `2 Systolic Blood Pressure : 120mmHg Diastolic Blood Pressure : 70mmHg NIBP Mean : 87mmHg BP Location : Left upper extremity Blood Pressure Cuff Size : Large JOSE CARLOS MIKE - 09/20/2012 16:41 RESTAURANT COOK Subjective Pain Symptoms : No JOSE CARLOS MIKE - 09/20/2012 16:41 RESTAURANT COOK Dependent Habits Tobacco Use/Currently Using : No Exposure to Tobacco Smoke : Other: never Smoking Status : Never smoker JOSE CARLOS MIKE - 09/20/2012 16:41 RESTAURANT COOK Tobacco Use Grid Other Tobacco Frequency : never JOSE CARLOS MIKE - 09/20/2012 16:41 RESTAURANT COOK Caffeine Use Grid Caffeine Use : Current Type : Soft drinks Frequency : Daily JOSE CARLOS MIKE - 09/20/2012 16:41 RESTAURANT COOK Allergy Allergies (Active) NKA Estimated Onset Date: Unspecified ; Created By: CECIL ALEGRIA LPN; Reaction Status: Active ; Category: Drug ; Substance: NKA ; Type: Allergy ; Updated By: CECIL ALEGRIA LPN; Reviewed Date: 09/10/2012 14:36 RESTAURANT COOK Source: [facility] Document Id: [id number] documented in this encounter Plan of Treatment Upcoming Encounters Date Type Specialty Care Team Description 10/19/2022 Procedure visit Neurology Marina Winter M.D., M.P.H. [address] [phone] (Wo rk) Scheduled Procedures Name Priority Associated Diagnoses Date/Time LIFT THIGH Excessive And Redundant Skin And Subcutaneous Tissue documented as of this encounter Visit Diagnoses Not on filedocumented in this encounter Additional Health Concerns Assessment Noted Time PHQ-9 Depression Total Score: 17 05/07/2012 1:10 PM CD T documented as of this encounter
--- OUTSIDE RECORDS SUMMARY | 2022-09-05 06:15 | XMS_ITS | Encounter Summary ---
:1985 Author Organization [facility] Address [address] [place] [address] Care Team Providers Name Role Phone Unavailable Primary Care Provider Unavailable Encounter Details Date Type Department Care Team Description 11/06/2012 Hospital Encounter HX NO MAPPING Checo Wright III, M.D. (Skip), M.P.H. [address] [place], [place] [address] (Wo rk) Social History [...] How often do you attend hoahaoism or anabaptist Never 07/04/2019 services? 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 [address] [phone] (Wo rk) Scheduled Procedures Name Priority Associated Diagnoses Date/Time LIFT THIGH Excessive And Redundant Skin And Subcutaneous Tissue documented as of this encounter Visit Diagnoses Not on filedocumented in this encounter Additional Health Concerns Assessment Noted Time PHQ-9 Depression Total Score: 17 05/07/2012 1:10 PM CD T documented as of this encounter
--- OUTSIDE RECORDS SUMMARY | 2022-09-05 06:15 | XMS_ITS | Encounter Summary ---
:1985 Author Organization [facility] Address [address] [place] [address] Care Team Providers Name Role Phone Unavailable Primary Care Provider Unavailable Encounter Details Date Type Department Care Team Description 01/06/2013 Hospital Encounter HX NO MAPPING Checo Wright III, M.D. (Skip), M.P.H. [address] [place], [place] [address] (Wo rk) Social History [...] How often do you attend evangelical or gnosticist Never 07/04/2019 services? 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 [address] [phone] (Wo rk) Scheduled Procedures Name Priority Associated Diagnoses Date/Time LIFT THIGH Excessive And Redundant Skin And Subcutaneous Tissue documented as of this encounter Visit Diagnoses Not on filedocumented in this encounter Additional Health Concerns Assessment Noted Time PHQ-9 Depression Total Score: 17 05/07/2012 1:10 PM CD T documented as of this encounter
--- OUTSIDE RECORDS SUMMARY | 2022-09-05 06:15 | XMS_ITS | Encounter Summary ---
:1985 Author Organization [facility] Address [address] [place] [address] Care Team Providers Name Role Phone Unavailable [...] How often do you attend tenriism or sabianist Never 07/04/2019 services? 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 - 01/29/2013 1:22 PM CDT [id number] CHIEF COMPLAINT / REASON FOR VISIT care. [...] month ago and basically is 0.7 kg security services manager than her weight on November 20. PHYSICAL [...] CALL MD On: 02/03/2013 09:19 AM Source: [facility] MHSDOLBEYNONRADSYS Document Id: [id number] documented in this encounter Miscellaneous Notes Miscellaneous - Sulema Call M.D. 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 - 01/29/2013 2:01 PM CDT Ambulatory Depart Summary [facility] [address] [place] [address] Visit Information Name: NANCY ROBINS [facility] Number: [id number] Visit Date: 01/29/2013 [...] your provider for clarification. Additional Information: Source: [facility] POWERCHART Document Id: [id number] Miscellaneous - Conversion, Historical Provider Ser - 01/29/2013 1:[address] Painter Intake/History Adult Highway Painter Intake/History Entered On: 01/29/2013 13:32 CDT Performed [...] Patient Languages : Italian JOSE CARLOS MIKE 01/29/2013 13:31 CDT Subjective [...] CECIL ALEGRIA LPN; Reviewed Date: 10/08/2012 8:49 LOG GRADER [facility] Document Id: [id number] documented in this encounter Plan of Treatment Upcoming Encounters Date Type Specialty Care Team Description 10/19/2022 Procedure visit Neurology Marina Winter M.D., M.P.H. [address] [phone] (Wo rk) Scheduled Procedures Name Priority Associated Diagnoses Date/Time LIFT THIGH Excessive And Redundant Skin And Subcutaneous Tissue documented as of this encounter Visit Diagnoses Not on filedocumented in this encounter Additional Health Concerns Assessment Noted Time PHQ-9 Depression Total Score: 17 05/07/2012 1:10 PM CD T documented as of this encounter
--- OUTSIDE RECORDS SUMMARY | 2022-09-05 06:15 | XMS_ITS | Encounter Summary ---
:1985 Author Organization [facility] Address [address] [place] [address] Care Team Providers Name Role Phone Unavailable Primary Care Provider Unavailable Encounter Details Date Type Department Care Team Description 01/01/2013 Hospital Encounter HX [facility] Gonzales M.D. [address] [place], [place] [phone] (Wo rk) Social History Tobacco Use Types [...] How often do you attend latter-day or church Never 07/04/2019 services? 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 [address] [place] [phone] (Wo rk) Scheduled Procedures Name Priority Associated Diagnoses Date/Time LIFT THIGH Excessive And Redundant Skin And Subcutaneous Tissue documented as of this encounter Procedures Procedure Name Priority Date/Time Associated Diagnosis Comme nts US OB GREATER THAN Routine 01/01/2013 2:02 PM Res ults for this 14 WEEKS COORDINATOR OF ONLINE PROGRAMS procedure are i n the results section. documented in this encounter Results US OB Greater than 14 weeks (01/01/2013 2:02 PM COORDINATOR OF ONLINE PROGRAMS) Anatomical Region Laterality Modality Ultrasound Specimen (Source) Anatomical Collection Method Collection Time Re ceived Time Location / / Volume Laterality 01/01/2013 2:02 PM COORDINATOR OF ONLINE PROGRAMS Addenda Addendum by Provider, Ella Moreno 01/01/2013 2:02 PM COORDINATOR OF ONLINE PROGRAMS RAD^^^OW US OB Greater than 14 weeks 01/01/2013 14:02:31 Impressions 01/01/2013 4:45 PM COORDINATOR OF ONLINE PROGRAMS 1. Viable with AGA of 20 weeks [...] congenital heart defects. Narrative 01/01/2013 4:45 PM COORDINATOR OF ONLINE PROGRAMS EXAM: US OB Greater than 14 weeks [...] as congenital heart defects. Saige Nick R.V.T., John IMG OB US PROCEDUR ES documented in this encounter Visit Diagnoses Not on filedocumented in this encounter Additional Health Concerns Assessment Noted Time PHQ-9 Depression Total Score: 17 05/07/2012 1:10 PM CD T documented as of this encounter
--- OUTSIDE RECORDS SUMMARY | 2022-09-05 06:15 | XMS_ITS | Encounter Summary ---
:1985 Author Organization [facility] Address [address] [place] [address] Care Team Providers Name Role Phone Unavailable [...] How often do you attend spiritism or jehovah's witness Never 07/04/2019 services? 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 - 03/12/2013 1:59 PM CDT [id number] CHIEF COMPLAINT / REASON FOR VISIT care. 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 [...] CALL MD On: 03/13/2013 10:51 AM Source: [facility] MHSDOLBEYNONRADSYS Document Id: [id number] documented in this encounter Miscellaneous Notes Miscellaneous - Sulema Call M.D. - 03/18/2013 8:14 AM CDT Results Notification Document Contains Addenda Addendum by JOSE CARLOS MIKE on 18 Mar 2013 10:26:13 CDT Pt notified of results. From: SULEMA CALL MD To: JACEY Call Nurse; Sent: 03/18/2013 08:14:42 CDT ! Show up: 03/18/2013 13:14:42 [facility] Subject: Results Notification Actions: Note to Nurse Reminder Comments: ACOG Results: Date Result Name Value Ref Range 03/12/2013 17:06 C trach Amp Src-Gordon CERVIX 03/12/2013 17:06 C trach Amp RNA-Gordon Negative (Negative - ) 03/12/2013 17:06 N gonor Amp DNA-Gordon Negative (Negative - ) 03/12/2013 17:06 N gonor Amp Src-Gordon CERVIX Source: [facility] [email or web address] Document Id: [id number] Miscellaneous - Sulema Call M.D. 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 - 03/12/2013 2:53 PM CDT Ambulatory Depart Summary [facility] [address] [place] [address] Visit Information Name: NANCY ROBINS [facility] Number: [id number] Visit Date: 03/12/2013 14:53:23 Attending [...] your provider for clarification. Additional Information: Source: [facility] POWERCHART Document Id: [id number] Miscellaneous - Jimena Hartmann RCiera - 03/12/2013 2:05 PM CDT Adult Supervisor Packing Room Intake/History Adult Supervisor Packing Room Intake/History Entered On: 03/12/2013 14:07 CDT Performed [...] Preferred Communication Mode : Verbal Languages : Amharic JIMENA HARTMANN - 03/12/2013 14:05 CDT Subjective Pain Symptoms : No JIMENA HARTMANN - 03/12/2013 14:05 CDT Dependent Habits Tobacco Use/Currently Using : No Exposure to Tobacco Smoke : Other: never Smoking Status : Never smoker JIMENA HARTMANN - 03/12/2013 14:05 CDT Tobacco Use Grid Other Tobacco Frequency : never JIMENA HARTMANN - 03/12/2013 14:05 CDT Caffeine Use Grid Caffeine Use : Current Type : Soft drinks Frequency : Daily JIMENA HARTMANN - 03/12/2013 14:05 CDT [facility] NerdCH[facility] Document Id: [id number] documented in this encounter Plan of Treatment Upcoming Encounters Date Type Specialty Care Team Description 10/19/2022 Procedure visit Neurology Marina Winter M.D., M.P.H. [address] [address] [phone] (Wo rk) Scheduled Procedures Name Priority [...] athologist Signature HXN gonor Amp Negative POWERCHART DNA-Gordon Specimen (Source) Anatomical Collection Method Collection Time Re ceived Time Location / / Volume Laterality 03/12/2013 5:06 PM CDT Narrative POWERCHART - 03/13/2013 8:23 PM CDT Test Performed by: [facility] [address] [place] [address] Psychologist Private Practice: Federico anne III, M.D. Sulema Call M.D. LAB HISTORICAL ORDERS Performing Organization Address City/State/ZIP Code Phon e Number POWERCHART HX-N gonor Amp Src (03/12/2013 5:06 PM CDT) athologist Signature HXN gonor Amp CERVIX [facility]OWER[facility] Spec[facility] (Source) Anatomical Collection Method Collection Time Re ceived Time Location / / Volume Laterality 03/12/2013 5:06 PM CDT Sulema Call M.D. LAB HISTORICAL ORDERS Performing Organization Address City/State/ZIP Code Phon e Number POWERCHART HX-C trach Amp RNA (03/12/2013 5:06 PM CDT) [facility] gist Method Time Signature Chlamydia Negative POWERCHART trachomatis amplified RNA Specimen (Source) Anatomical Collection Method Collection Time Re ceived Time Location / / Volume Laterality 03/12/2013 5:06 PM CDT Sulema Call M.D. LAB HISTORICAL ORDERS Performing Organization Address City/State/ZIP Code Phon e Number POWERCHART HX-C trach Amp Src (03/12/2013 5:06 PM CDT) athologist Signature HXC trach Amp CERVIX POWERCHART [facility] Specimen (Source) Anatomical Collection Method Collection Time [...]
--- OUTSIDE RECORDS SUMMARY | 2022-09-05 06:15 | XMS_ITS | Encounter Summary ---
:1985 Author Organization [facility] Address [address] [place] [address] Care Team Providers Name Role Phone Unavailable Primary Care Provider Unavailable Encounter Details Date Type Department Care Team Description 11/06/2012 Hospital Encounter HX NO MAPPING Cheryl Mukherjee M.D. [address] [place], [place] [address] (Wo rk) Social History Tobacco [...] How often do you attend sikhism or pentecostalism Never 07/04/2019 services? 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 [address] [place] [phone] (Wo rk) Scheduled Procedures Name Priority Associated Diagnoses Date/Time LIFT THIGH Excessive And Redundant Skin And Subcutaneous Tissue documented as of this encounter Visit Diagnoses Not on filedocumented in this encounter Additional Health Concerns Assessment Noted Time PHQ-9 Depression Total Score: 17 05/07/2012 1:10 PM CD T documented as of this encounter
--- OUTSIDE RECORDS SUMMARY | 2022-09-05 06:15 | XMS_ITS | Encounter Summary ---
:1985 Author Organization [facility] Address [address] [place] [address] Care Team Providers Name Role Phone Unavailable Primary Care Provider Unavailable Encounter Details Date Type Department Care Team Description 01/14/2013 Hospital Encounter HX [facility] Gonzales M.D. [address] [place], [place] [phone] (Wo rk) Social History Tobacco Use Types [...] How often do you attend episcopalian or jainism Never 07/04/2019 services? 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 [address] [place] [phone] (Wo rk) Scheduled Procedures Name [...] Addenda Addendum by Provider, Ella Moreno o jerson 01/14/2013 12:31 PM CDT RAD^^^OW US OB Follow Up or Repeat 01/14/2013 12:31:29 Impressions 01/14/2013 4:43 PM CDT 1. Limited anatomy survey as above . 2. Normal cardiac screening views. Narrative 01/14/2013 4:43 PM CDT EXAM: US OB Follow Up or Repeat INDICATION: finish survey COMPARISON: None. REFERRING PHYSICIAN: Dr. Winter GOVERNMENT OPERATIONS CONSULTANT: Saige Clifford RDMS. : 4 PARA: 2 [...] survey COMPARISON: None. REFERRING PHYSICIAN: Dr. Winter GOVERNMENT OPERATIONS CONSULTANT: Saige Clifford RDMS. : 4 PARA: 2 [...] Normal cardiac screening views. Saige Nick R.V.T., BrianneS. IMG OB US PROCEDUR ES documented in this encounter Visit Diagnoses Not on filedocumented in this encounter Additional Health Concerns Assessment Noted Time PHQ-9 Depression Total Score: 17 05/07/2012 1:10 PM CD T documented as of this encounter
--- OUTSIDE RECORDS SUMMARY | 2022-09-05 06:15 | XMS_ITS | Encounter Summary ---
:1985 Author Organization [facility] Address [address] [place] [address] Care Team Providers Name Role Phone Unavailable [...] How often do you attend adventism or worship Never 07/04/2019 services? 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 - 12/19/2012 1:19 PM CST [id number] CHIEF COMPLAINT / REASON FOR VISIT care. [...] for her survey. Sulema Call M.D./mikel DOCID: [id number] cc: Labor and Delivery Electronically Signed By: SULEMA CALL MD On: 12/23/2012 09:05 AM Source: [facility] MHSDOLBEYNONRADSYS Document Id: [id number] BDENUM STEAMER OPERATOR documented in this encounter Miscellaneous Notes Miscellaneous - Sulema Call M.D. 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 - 12/19/2012 2:38 PM CST Ambulatory Depart Summary [facility] [address] [place] [phone] Visit Information Name: NANCY ROBINS [facility] Number: [id number] Visit Date: 12/19/2012 14:38:29 [...] Source: [facility] POWERCHART Document Id: [id number] BDENUM STEAMER OPERATOR Miscellaneous - Conversion, Historical Provider Ser - 12/19/2012 1:26 PM MOLYBDENUM STEAMER OPERATOR Adult Environmental Epidemiologist Intake/History Adult Environmental Epidemiologist Intake/History Entered On: 12/19/2012 13:28 MOLYBDENUM STEAMER OPERATOR Performed On: 12/19/2012 13:26 MOLYBDENUM STEAMER OPERATOR by JOSE CARLOS MIKE Intake Chief [...] 130.70kg JOSE CARLOS MIKE - 12/19/2012 13:26 MOLYBDENUM STEAMER OPERATOR General Info Information Given By : Patient Languages : Faroese JOSE CARLOS MIKE - 12/19/2012 13:26 MOLYBDENUM STEAMER OPERATOR Subjective Pain Symptoms : No JOSE CARLOS MIKE - 12/19/2012 13:26 MOLYBDENUM STEAMER OPERATOR Dependent Habits Tobacco Use/Currently Using : No Exposure to Tobacco Smoke : Other: never Smoking Status : Never smoker JOSE CARLOS MIKE 12/19/2012 13:26 MOLYBDENUM STEAMER OPERATOR Tobacco Use Grid Other Tobacco Frequency : never JOSE CARLOS MIKE 12/19/2012 13:26 MOLYBDENUM STEAMER OPERATOR Caffeine Use Grid Caffeine Use : Current Type : Soft drinks Frequency : Daily JOSE CARLOS MIKE 12/19/2012 13:26 MOLYBDENUM STEAMER OPERATOR Allergy Allergies (Active) NKA Estimated Onset Date: Unspecified ; Created By: CECIL ALEGRIA LPN; Reaction Status: Active ; Category: Drug ; Substance: NKA ; Type: Allergy ; Updated By: CECIL ALEGRIA LPN; Reviewed Date: 10/08/2012 8:49 MOLYBDENUM STEAMER OPERATOR Source: [facility] [employer] Document Id: [id number] documented in this encounter Plan of Treatment Upcoming Encounters Date Type Specialty Care Team Description 10/19/2022 Procedure visit Neurology Marina Winter M.D., M.P.H. [address] [phone] (Wo rk) Scheduled Procedures Name Priority Associated Diagnoses Date/Time LIFT THIGH Excessive And Redundant Skin And Subcutaneous Tissue documented as of this encounter Visit Diagnoses Not on filedocumented in this encounter Additional Health Concerns Assessment Noted Time PHQ-9 Depression Total Score: 17 05/07/2012 1:10 PM CD T documented as of this encounter
--- OUTSIDE RECORDS SUMMARY | 2022-09-05 06:15 | XMS_ITS | Encounter Summary ---
:1985 Author Organization [facility] Address [address] [place] [address] Care Team Providers Name Role Phone Unavailable [...] How often do you attend orthodoxy or hinduism Never 07/04/2019 services? 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 [address] [place] [phone] (Wo rk) Scheduled Procedures Name Priority Associated Diagnoses Date/Time LIFT THIGH Excessive And Redundant Skin And Subcutaneous Tissue documented as of this encounter Procedures Procedure Name Priority Date/Time Associated Diagnosis Comme nts EXTRA SST Routine 09/20/2012 3:06 PM Results f or this EVS ATTENDANT procedure are i n the results section. BHCG (BETA-HUMAN Routine 09/20/2012 3:06 PM Resul ts for this CHORIONIC EVS ATTENDANT procedure are i n GONADOTROPIN), the results SUSAN, S section. documented in this encounter Results EXTRA SST (09/20/2012 3:06 PM EVS ATTENDANT) P athologist Signature HXExtra Tube Extra Tube POWERCHART Specimen (Source) Anatomical Collection Method Collection Time Re ceived Time Location / / Volume Laterality Blood 09/20/2012 3:06 PM EVS ATTENDANT Samir Call M.D. LAB HISTORICAL ORDERS Performing Organization Address City/State/[facility] Code Phon e Number POWERCHART bHCG (Beta-Human Chorionic Gonadotropin), Quantitative (09/20/2012 3:06 PM EVS ATTENDANT) [facility] gist Method Time Signature Beta-HCG, see report [...] / Volume Laterality Blood 09/20/2012 3:06 PM EVS ATTENDANT Samir Call M.D. LAB BLOOD ADD-ON Performing Organization Address City/State/ZIP Code Phon e Number POWERCHART documented in this encounter Visit Diagnoses Not on filedocumented in this encounter Additional Health Concerns Assessment Noted Time PHQ-9 Depression Total Score: 17 05/07/2012 1:10 PM CD T documented as of this encounter
--- OUTSIDE RECORDS SUMMARY | 2022-09-05 06:15 | XMS_ITS | Encounter Summary ---
:1985 Author Organization [facility] Address [address] [place] [address] Care Team Providers Name Role Phone Unavailable Primary Care Provider Unavailable Encounter Details Date Type Department Care Team Description 01/06/2013 Hospital Encounter HX NO MAPPING Checo Wright III, M.D. (Skip), M.P.H. [address] [place], [place] [address] (Wo rk) Social History [...] How often do you attend tenriism or jehovah's witness Never 07/04/2019 services? 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 [address] [phone] (Wo rk) Scheduled Procedures Name Priority Associated Diagnoses Date/Time LIFT THIGH Excessive And Redundant Skin And Subcutaneous Tissue documented as of this encounter Visit Diagnoses Not on filedocumented in this encounter Additional Health Concerns Assessment Noted Time PHQ-9 Depression Total Score: 17 05/07/2012 1:10 PM CD T documented as of this encounter
--- OUTSIDE RECORDS SUMMARY | 2022-09-05 06:15 | XMS_ITS | Encounter Summary ---
:1985 Author Organization [facility] Address [address] [place] [address] Care Team Providers Name Role Phone Unavailable Primary Care Provider Unavailable Encounter Details Date Type Department Care Team Description 09/10/2012 Hospital Encounter HX [facility] FAMILYPRA Grandalfred, Lizandro Olguin, P.ARodrigo-Nadya [address] [place], [place] [phone] (Wo rk) Social History Tobacco Use Types [...] How often do you attend lutheran or worship Never 07/04/2019 services? 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 - 09/10/2012 2:31 PM CST [id number] CHIEF COMPLAINT/REASON FOR VISIT Confirmation of . [...] Vera and establish ongoing obstetrical care with [facility]. She has had 2previous C-sections and so will follow with [facility]. Based on LMP dates of 08/09/2012 she [...] convenience. She will follow up as needed. Jenae Minor P.A.-C./briana Electronically Signed By: JENAE MINOR On: 09/12/2012 01:58 PM Source: [facility] MHSDOLBEYNONRADSYS Document Id: [id number] ANICAL FITTER documented in this encounter Miscellaneous Notes Miscellaneous - Conversion, Historical Provider Ser - 10/30/2012 2:37 PM MECHANICAL FITTER Med Management Vistaril Document Contains Addenda Addendum by JENAE MINOR on 30 October 2012 15:08:44 MECHANICAL FITTER Approved with modifications: Order Order: hydrOXYzine (Vistaril 25 mg oral capsule) 1 cap(s) PO 4xDay Qty: 30 cap(s) Refills: 0 Migraine headache and nausea Route To Pharmacy - [id number] Signed by JENAE MINOR 10/30/2012 15:08:26 From: KHLOE LOAIZA To: JENAE MINOR; Sent: 10/30/2012 14:37:50 MECHANICAL FITTER Subject: Med Management Vistaril On hold pending signature Order Order: hydrOXYzine (Vistaril 25 mg oral capsule) 1 cap(s) PO 4xDay Qty: 30 cap(s) Refills: 5 Migraine headache Route To Pharmacy - [facility] Caller is: ( ) Patient ( ) Mother ( ) Father ( ) Spouse ( ) Daughter ( ) Son ( [facility] ) Pharmacy ( ) Other: Physician: Soila [...] back cell phone number ( ) Source: [facility] Odeeo Document Id: [id number] Miscellaneous - Jenae Minor PMichael.-C., P.A. - 09/11/2012 5:28 PM MECHANICAL FITTER Results Notification Document Contains Addenda Addendum by TOÑO FRAGA on 11 September 2012 17:44:16 MECHANICAL FITTER Patient notified. From: JENAE MINOR To: TOÑO FRAGA Sent: 09/11/2012 17:28:30 MECHANICAL FITTER ! Show up: 09/11/2012 23:28:30 [facility] Subject: Results Notification Actions: Notify patient of results Source: [facility] POWERCHART Document Id: [id number] Electronically signed by Conversion, [facility] Scrubbing Machine Operator [id number] at 04/07/2017 6:55 PM CDT Miscellaneous - Conversion, Historical Provider Ser - 09/10/2012 2:36 PM MECHANICAL FITTER Adult Pmp Project Manager Intake/History Adult Pmp Project Manager Intake/History Entered On: 09/10/2012 14:39 MECHANICAL FITTER Performed On: 09/10/2012 14:36 MECHANICAL FITTER by TOÑO FRAGA Intake Chief Complaint : [...] Dosing Weight Clinic : 129.00kg TOÑO FRAGA - 09/10/2012 14:36 MECHANICAL FITTER General Info Information Given By : Patient Preferred Communication Mode : Verbal Languages : Thai TOÑO FRAGA - 09/10/2012 14:36 MECHANICAL FITTER Subjective Pain Symptoms : No TOÑO FRAGA - 09/10/2012 14:36 MECHANICAL FITTER Dependent Habits Tobacco Use/Currently Using : No Exposure to Tobacco Smoke : Other: never Smoking Status : Never smoker TOÑO FRAGA - 09/10/2012 14:36 MECHANICAL FITTER Tobacco Use Grid Other Tobacco Frequency : non TOÑO FRAGA - 09/10/2012 14:36 MECHANICAL FITTER Caffeine Use Grid Caffeine Use : Current Type : Soft drinks Frequency : Daily TOÑO FRAGA - 09/10/2012 14:36 MECHANICAL FITTER Allergy Allergies (Active) NKA Estimated Onset Date: Unspecified ; Created By: CECIL ALEGRIA LPN; Reaction Status: Active ; Category: Drug ; Substance: NKA ; Type: Allergy ; Updated By: CECIL ALEGRIA LPN; Reviewed Date: 09/10/2012 14:36 MECHANICAL FITTER Source: [facility] POWERCHART Document Id: [id number] documented in this encounter Plan of Treatment Upcoming Encounters Date Type Specialty Care Team Description 10/19/2022 Procedure visit Neurology Marina Winter M.D., M.P.H. [address] [place] [phone] (Wo rk) Scheduled Procedures Name Priority Associated Diagnoses Date/Time LIFT THIGH Excessive And Redundant Skin And Subcutaneous Tissue documented as of this encounter Procedures Procedure Name Priority Date/Time Associated Diagnosis Comme nts N GONOR AMP SRC Routine 09/10/2012 3:23 PM Result s for this MECHANICAL FITTER procedure are i n the results section. N GONOR AMP DNA Routine 09/10/2012 3:23 PM Result s for this MECHANICAL FITTER procedure are i n the results section. C TRACH AMP SRC Routine 09/10/2012 3:23 PM Result s for this MECHANICAL FITTER procedure are i n the results section. C TRACH AMP RNA Routine 09/10/2012 3:23 PM Result s for this MECHANICAL FITTER procedure are i n the results section. documented in this encounter Results HX-N gonor Amp DNA (09/10/2012 3:23 PM MECHANICAL FITTER) athologist Signature HXN gonor Amp Negative POWERCHART DNA-[place] Specimen (Source) Anatomical Collection Method Collection Time Re ceived Time Location / / Volume Laterality 09/10/2012 3:23 PM MECHANICAL FITTER Narrative POWERCHART - 09/11/2012 3:53 PM MECHANICAL FITTER Test Performed by: [place] [address] Gas Pit Worker: Federico anne III, M.D. Jenae Minor P.A.-C. LAB HISTORICAL ORDERS Performing Organization Address City/State/ZIP Code Phon e Number POWERCHART HX-N gonor Amp Src (09/10/2012 3:23 PM MECHANICAL FITTER) athologist Signature HXN gonor Amp urine POWERCHART Src-[place] Specimen (Source) Anatomical Collection Method Collection Time Re ceived Time Location / / Volume Laterality 09/10/2012 3:23 PM MECHANICAL FITTER Jenae MedellinCRodrigo LAB HISTORICAL ORDERS Performing Organization Address City/State/ZIP Code Phon e Number POWERCHART HX-C trach Amp RNA (09/10/2012 3:23 PM MECHANICAL FITTER) [facility] gist Method Time Signature Chlamydia Negative POWERCHART trachomatis amplified RNA Specimen (Source) Anatomical Collection Method Collection Time Re ceived Time Location / / Volume Laterality 09/10/2012 3:23 PM MECHANICAL FITTER Jenae MedellinCRodrigo LAB HISTORICAL ORDERS Performing Organization Address City/State/ZIP Code Phon e Number POWERCHART HX-C trach Amp Src (09/10/2012 3:23 PM MECHANICAL FITTER) P athologist Signature HXC trach Amp urine POWERCHART [facility] Specimen (Source) Anatomical Collection Method Collection Time Re ceived Time Location / / Volume Laterality 09/10/2012 3:23 PM MECHANICAL FITTER Jenae Minor P.A.-C. LAB HISTORICAL ORDERS Performing Organization Address City/State/ZIP Code Phon e Number POWERCHART documented in this encounter Visit Diagnoses Not on filedocumented in this encounter Additional Health Concerns Assessment Noted Time PHQ-9 Depression Total Score: 17 05/07/2012 1:10 PM CD T documented as of this encounter
--- OUTSIDE RECORDS SUMMARY | 2022-09-05 06:15 | XMS_ITS | Encounter Summary ---
:1985 Author Organization [facility] Address [address] [place] [address] Care Team Providers Name Role Phone Unavailable Primary Care Provider Unavailable Encounter Details Date Type Department Care Team Description 03/01/2012 Hospital Encounter HX [facility] Lizandro French, P.AMainor [address] [place], [place] [phone] (Wo rk) Social History Tobacco Use Types [...] How often do you attend alevism or mandaeism Never 07/04/2019 services? 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 - 03/09/2012 8:10 AM CDT Results Notification Document Contains Addenda Addendum by TOÑO FRAGA on 11 Mar 2012 09:28:00 CDT Lexii Pineda Spoke with patient last week. patient was notified of results. From: LEXII MINOR To: TOÑO FRAGA Sent: 03/09/2012 08:10:23 CDT ! Show up: 03/09/2012 13:10:[address] [facility] Subject: Results Notification Actions: Notify patient of results Source: [facility] POWERCHART Document Id: [id number] Electronically signed by Conversion, [facility] Engine Repairer Service [id number] at 04/08/2017 8:23 AM CDT documented in this encounter Plan of Treatment Upcoming Encounters Date Type Specialty Care Team Description 10/19/2022 Procedure visit Neurology Marina Winter M.D., M.P.H. [address] [phone] (Wo rk) Scheduled [...] HX-Ngonorr amp RNA (03/01/2012 4:33 PM CDT) P athologist Signature NSandi anguiano POWERCHART Misc, Amplified RNA Specimen (Source) Anatomical Collection Method Collection Time Re ceived Time Location / / Volume Laterality 03/01/2012 4:33 PM CDT Narrative POWERCHART - 03/04/2012 4:52 PM CDT Test Performed by: [facility] [address], [place] [address] Lead Neurodiagnostic Technologist: Tara Vargas, Ph. D. Lexii Minor P.A.-C. LAB HISTORICAL ORDERS Performing Organization Address City/State/ZIP Code Phon e Number POWERCHART HX-Ngonorr RNA Src (03/01/2012 4:33 PM CDT) athologist Signature Specimen urine POWERCHART Specimen (Source) Anatomical Collection Method Collection Time Re ceived Time Location / / Volume Laterality 03/01/2012 4:33 PM CDT Lexii Minor P.A.-C. LAB HISTORICAL ORDERS Performing Organization Address City/State/ZIP Code Phon e Number POWERCHART HX-C Trach RNA (03/01/2012 4:33 PM CDT) [facility] gist Method Time Signature Chlamydia Negative POWERCHART trachomatis amplified RNA Specimen (Source) Anatomical Collection Method Collection Time Re ceived Time Location / / Volume Laterality 03/01/2012 4:33 PM CDT Lexii Minor P.A.-C. LAB HISTORICAL ORDERS Performing Organization Address City/State/ZIP Code Phon e Number POWERCHART HX-C Trach RNA Src (03/01/2012 4:33 PM CDT) athologist Signature Specimen urine POWERCHART Specimen (Source) Anatomical Collection Method Collection Time Re ceived Time Location / / Volume Laterality 03/01/2012 4:33 PM CDT Lexii Minor P.A.-C. LAB HISTORICAL ORDERS Performing Organization Address City/State/ZIP Code Phon e Number POWERCHART Test, Qualitative, Urine (03/01/2012 4:33 PM CDT) [facility] gist Method Time Signature HXBeta-hCG Negative POWERCHART Qualitative Urine Specimen (Source) Anatomical Collection Method Collection Time Re ceived Time Location / / Volume Laterality Urine 03/01/2012 4:33 PM CDT Lexii Minor P.A.-C. LAB URINE ORDERABLES Performing Organization Address City/State/ZIP Code Phon e Number POWERCHART documented in this encounter Visit Diagnoses Not on filedocumented in this encounter Additional Health Concerns Assessment Noted Time PHQ-9 Depression Total Score: 13 11/13/2011 1:58 PM CS T documented as of this encounter
--- OUTSIDE RECORDS SUMMARY | 2022-09-05 06:15 | XMS_ITS | Encounter Summary ---
:1985 Author Organization [facility] Address [address] [place] [address] Care Team Providers Name Role Phone Unavailable [...] How often do you attend protestant or tenriism Never 07/04/2019 services? 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 Offer appt with MD to address medication. Encouragedto keep open line of communication with MD re: emtional status evenif between visits-if thoughts of hurt self/others should get help immediately. Materials Provided: __x_Beginnings: , and Beyond-[facility] __[facility] Folder __x_Maternal Serum Screening-[place] __Cystic Fibrosis Carrier Testing-[place] __x_First Trimester Screening for Down Syndrome-[place] __xNeonatal Med Sheet __x_Listeriosis and -[place] _x_A Family Guide to Eating Fish-[facility] Electronically Signed By: RADHA RHOADES On: 10/08/2012 09:25 AM Source: [employer] Document Id: [id number] PLE CUTTER documented in this encounter Miscellaneous Notes Miscellaneous - Radha Rhoades RCiera - 10/08/2012 8:32 AM CST Adult Guest Relations Associate Intake/History Adult Guest Relations Associate Intake/History Entered On: 10/08/2012 8:49 CRIPPLE CUTTER Performed On: 10/08/2012 8:32 CRIPPLE CUTTER by RADHA RHOADES Intake Chief Complaint : nob education/intake appt LMP:08/13/12 EDC:05/19/13 Height : 163.4cm(Converted to: 5ft 4inch(es), 64.33inch(es)) Actual Weight : 129.4kg(Converted to: 285lb 4oz) Dosing Weight Clinic : 129.40kg Clinic BSA : 2.42 Body Mass Index : 48.47kg/m2 RADHA RHOADES - 10/08/2012 8:32 CRIPPLE CUTTER Subjective Pain Symptoms : No RADHA RHOADES - 10/08/2012 8:32 CRIPPLE CUTTER Dependent Habits Tobacco Use/Currently Using : No Exposure to Tobacco Smoke : Other: never Smoking Status : Never smoker RADHA RHOADES - 10/08/2012 8:32 CRIPPLE CUTTER Tobacco Use Grid Other Tobacco Frequency : never RADHA RHOADES - 10/08/2012 8:32 CRIPPLE CUTTER Caffeine Use Grid Caffeine Use : Current Type : Soft drinks Frequency : Daily RADHA RHOADES - 10/08/2012 8:32 CRIPPLE CUTTER Allergy Allergies (Active) NKA Estimated Onset Date: Unspecified ; Created By: CECIL ALEGRIA LPN; Reaction Status: Active ; Category: Drug ; Substance: NKA ; Type: Allergy ; Updated By: CECIL ALEGRIA LPN; Reviewed Date: 09/10/2012 14:36 CRIPPLE CUTTER Source: [facility] [employer] Document Id: [id number] PLE CUTTER documented in this encounter Plan of Treatment Upcoming Encounters Date Type Specialty Care Team Description 10/19/2022 Procedure visit Neurology Marina Winter M.D., M.P.H. [address] [facility] [place] [phone] (Wo rk) Scheduled Procedures Name Priority Associated Diagnoses Date/Time LIFT THIGH Excessive And Redundant Skin And Subcutaneous Tissue documented as of this encounter Procedures Procedure Name Priority Date/Time Associated Comments Diagnosis BACTERIAL CULTURE, Routine 10/08/2012 10:02 Resul ts for this AEROBIC, URINE AM CRIPPLE CUTTER procedure are in the results section. URINALYSIS, ROUTINE Routine 10/08/2012 9:55 AM Re sults for this CRIPPLE CUTTER procedure are i n the results section. URINE MICROSCOPIC Routine 10/08/2012 9:55 AM Resu lts for this CRIPPLE CUTTER procedure are i n the results section. HXZZORDERS Routine 10/08/2012 9:47 AM Results f or this CRIPPLE CUTTER procedure are i n the results section. ABO GROUPING, B Routine 10/08/2012 9:47 AM Result s for this CRIPPLE CUTTER procedure are i n the results section. PROFILE II Routine 10/08/2012 9:47 AM Re sults for this WITHOUT CBC, B/SERUM CRIPPLE CUTTER procedu re are in the results section. AUTOMATED Routine 10/08/2012 9:47 AM Results f or this DIFFERENTIAL, B CRIPPLE CUTTER procedure ar e in the results section. CBC WITH Routine 10/08/2012 9:47 AM Results f or this DIFFERENTIAL, B CRIPPLE CUTTER procedure ar e in the results section. ANTIBODY SCREEN, B Routine 10/08/2012 9:47 AM Res ults for this CRIPPLE CUTTER procedure are i n the results section. documented in this encounter Results (ABNORMAL) Bacterial Culture, Aerobic, Urine (10/08/2012 10:02 AM CRIPPLE CUTTER) Analysis Performed At Patho logist Time [...] Laterality Urine, Clean 10/08/2012 10:02 Catch AM CRIPPLE CUTTER Comment: P Samir Call M.D. LAB MICROBIOLOGY - GENERAL O RDERABLES Performing Organization Address [facility] Phon e Number POWERCHART Urine Microscopic (10/08/2012 9:55 AM CRIPPLE CUTTER) [facility] Method Time Signature HXUr WBC 0-5 [...] Laterality Urine 10/08/2012 9:55 AM 2 9:55 CRIPPLE CUTTER AM CRIPPLE CUTTER Samir Call M.D. LAB URINE ORDERABLES Performing Organization Address [facility] Phon e Number POWERCHART Urinalysis, Routine (10/08/2012 9:55 AM CRIPPLE CUTTER) [facility] Method Time Signature Source Clean Void POWERCHART Urine HXUr Color STRAW POWERCHART Glucose Negative Negative POWERCHART HXBILIRUBIN Negative Negative POWERCHART Ketones, QL(U) Trace Negative POWERCHART Specific >=1.030 >=1.030 POWERCHART [place], POCT, U pH, POCT, Urine 6.0 8.5 POWERCHART Protein, Ur, Dip Negative Negative POWERCHART Urobilinogen 0.2 1.0 POWERCHART HXNITRITE Negative Negative POWERCHART HXBLOOD Negative Negative POWERCHART Leukocyte Negative Negative POWERCHART Esterase Specimen (Source) Anatomical Collection Method Collection Time Re ceived Time Location / / Volume Laterality Urine 10/08/2012 9:55 AM CRIPPLE CUTTER Samir Call M.D. LAB URINE ORDERABLES Performing Organization Address [facility]/ZIP Code Phon e Number POWERCHART Antibody Screen (10/08/2012 9:47 AM CRIPPLE CUTTER) P athologist Signature Antibody Negative POWERCHART Screen Comment: Test Performed by: [address] [address] Lab oratory Director: Federico Eastman III, M.D. Specimen (Source) Anatomical Collection Method Collection Time Re ceived Time Location / / Volume Laterality 10/08/2012 9:47 AM CRIPPLE CUTTER Samir Call M.D. LAB BLOOD BANK TEST ORDERABL ES Performing Organization Address City/[facility] Code Phon e Number POWERCHART Grouping and Rh-[place] FLIP, see #[id number] (10/08/2012 9:47 AM CRIPPLE CUTTER) [facility] gist Method Time Signature HX Grouping A Positive POWERCHART and Rh Specimen (Source) Anatomical Collection Method Collection Time Re ceived Time Location / / Volume Laterality 10/08/2012 9:47 AM CRIPPLE CUTTER Samir Call M.D. LAB BLOOD BANK TEST ORDERABL ES Performing Organization Address City/[facility] Code Phon e Number POWERCHART (ABNORMAL) Automated Differential (10/08/2012 9:47 AM CRIPPLE CUTTER) Patholo gist Method Time Signature Neutro % 71.4 (H) 44.0 - POWERCHART 69.0 Lymphocytes % 19.6 18.0 - POWERCHART 44.1 HX [place] % 7.2 5.0 - 11.7 POWERCHART HX [...] Laterality Blood 10/08/2012 9:47 AM 2 9:47 CRIPPLE CUTTER AM CRIPPLE CUTTER Samir Call M.D. LAB BLOOD ADD-ON Performing Organization Address City/State/[facility] Code Phon e Number POWERCHART CBC with Differential (10/08/2012 9:47 AM CRIPPLE CUTTER) athologist Signature Leukocytes 8.4 3.4 - 10.5 POWERCHART X109L Erythrocytes 4.40 3.90 - 5.03 POWERCHART [id number] Hemoglobin 13.1 12.0 - 15.5 POWERCHART GDL Hematocrit 38.7 34.9 - 44.5 POWERCHART MCV 88.0 82.0 - 98.0 POWERCHART FL HX RDW 12.7 11.9 - 15.5 POWERCHART Platelet Count 257 150 - 450 POWERCHART X109L Specimen (Source) Anatomical Collection Method Collection Time Re ceived Time Location / / Volume Laterality Blood 10/08/2012 9:47 AM CRIPPLE CUTTER Samir Call M.D. LAB BLOOD ADD-ON Performing Organization Address City/[facility] Phon e Number POWERCHART Profile II without CBC/Serum (10/08/2012 9:47 AM CRIPPLE CUTTER) athologist [facility] HBs Antigen, S Negative Negative POWERCHART Comment: Test Performed by: [facility] [place] [address] Registered Nurse Teacher: Federico anne III, M.D. Syphilis IgG Ab, S Negative Negative POWERCHART Comment: Test Performed by: [facility] [place] [address] Registered Nurse Teacher: Federico anne III, M.D. HX Rubella IgG-[place] Positive POWERCHART Comment: -- REFERENCE VALUE -- Negative Test Performed by: [place] [address] Registered Nurse Teacher: Federico anne III, M.D. Specimen (Source) Anatomical Collection Method Collection Time Re ceived Time Location / / Volume Laterality Blood 10/08/2012 9:47 AM CRIPPLE CUTTER Samir Call M.D. LAB BLOOD NON ADD-ON Performing Organization Address City/[facility] Phon e Number POWERCHART HXZZORDERS (10/08/2012 9:47 AM CRIPPLE CUTTER) athologist Signature HIV-1/-2 Negative Negative POWERCHART [...] negative. Testing is performed using the [employer] ros Anti-HIV 1+2 chemiluminescence immunoassay. Test Performed by: [place] [address] Registered Nurse Teacher: Federico anne III, M.D. Specimen (Source) Anatomical Collection Method Collection Time Re ceived Time Location / / Volume Laterality Blood 10/08/2012 9:47 AM CRIPPLE CUTTER Samir Call M.D. LAB HISTORICAL ORDERS Performing Organization Address City/State/ZIP Code Phon e Number POWERCHART documented in this encounter Visit Diagnoses Not on filedocumented in this encounter Additional Health Concerns Assessment Noted Time PHQ-9 Depression Total Score: 17 05/07/2012 1:10 PM CD T documented as of this encounter
--- OUTSIDE RECORDS SUMMARY | 2022-09-05 06:16 | XMS_ITS | Encounter Summary ---
:1985 Author Organization [facility] Address [address] [place] [address] Care Team Providers Name Role Phone Unavailable Primary Care Provider Unavailable Encounter Details Date Type Department Care Team Description 12/27/2010 Hospital Encounter HX [facility] Steve Dupont M.D. [address] [place] [address] (Wo rk) Social History Tobacco Use Types [...] How often do you attend zoroastrianism or yazidism Never 07/04/2019 services? 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 - 12/27/2010 12:00 AM CST [id number] IMPRESSION/REPORT/PLAN Please see sheet. Everything seems to be growing well at this point. We will see her back in 2 weeks. At that time we will do an ultrasound to check the placenta. CHIEF COMPLAINT/REASON FOR VISIT Nancy comes in today for OB check. BDB/mgd Signed Aidan Diaz M.D. Obstetrics & Gynecology Electronically Signed By: AIDAN DIAZ MD On: 12/29/2010 09:08 Source: [facility] MHSDOLBEYNONRADSYS Document Id: [id number] S REPRESENTATIVE BUSINESS COURSES documented in this encounter Miscellaneous Notes Miscellaneous - Aidan Diaz M.D. 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 - 12/27/2010 3:29 PM CST [place] [address] Visit Information Name: NANCY CAMPBELL Current Date: 12/27/2010 15:29:05 Primary Care Provider: AIDAN DIAZ MD [phone] NANCY CAMPBELL has been given the following [...] to the patient and/or family, guardian/caregiver. Source: [facility] [employer]CH[employer] Document Id: [id number] Electronically signed by Maria R [facility] Clothing Consultant [id number] at 04/08/2017 11:45 AM CDT Miscellaneous - Cecil Saleh, L.P.N. - 12/27/2010 2:05 PM CST Adult Furnace Combination Analyst Intake/History Adult Furnace Combination Analyst Intake/History Entered On: 12/27/2010 14:06 SALES REPRESENTATIVE BUSINESS COURSES Performed On: 12/27/2010 14:05 SALES REPRESENTATIVE BUSINESS COURSES by CECIL SALEH LPN Intake Chief Complaint: OB visit LMP Date: 05/01/2010 Systolic Blood Pressure: 114mmHg Diastolic Blood Pressure: 68mmHg NIBP Mean: 83mmHg BP Location: Left upper extremity Actual Weight: 111.400kg(Converted to: 245lb 10oz) Dosing Weight Clinic: 111.40kg CECIL SALEH LPN - 12/27/2010 14:05 SALES REPRESENTATIVE BUSINESS COURSES Subjective Pain Symptoms: No CECIL SALEH LPN - 12/27/2010 14:05 SALES REPRESENTATIVE BUSINESS COURSES Dependent Habits Tobacco Use/Currently Using: No CECIL SALEH LPN - 12/27/2010 14:05 SALES REPRESENTATIVE BUSINESS COURSES Caffeine Use Grid Caffeine Use: Current Type: Soft drinks Frequency: Daily CECIL SALEH LPN - 12/27/2010 14:05 SALES REPRESENTATIVE BUSINESS COURSES Allergies Allergies (Active) NKA Estimated Onset Date: Unspecified ; Created By: CECIL SALEH LPN; Reaction Status: Active ; Category: Drug ; Substance: NKA ; Type: Allergy ; Updated By: CECIL SALEH LPN; Reviewed Date: 09/15/2010 10:22 SALES REPRESENTATIVE BUSINESS COURSES Source: [facility] [employer] Document Id: [id number] SALES REPRESENTATIVE BUSINESS COURSES!19 S REPRESENTATIVE BUSINESS COURSES documented in this encounter Plan of Treatment Upcoming Encounters Date Type Specialty Care Team Description 10/19/2022 Procedure visit Neurology Marina Winter M.D., M.P.H. [address] [phone] (Wo rk) Scheduled Procedures Name Priority Associated Diagnoses Date/Time LIFT THIGH Excessive And Redundant Skin And Subcutaneous Tissue documented as of this encounter Visit Diagnoses Not on filedocumented in this encounter
--- OUTSIDE RECORDS SUMMARY | 2022-09-05 06:16 | XMS_ITS | Encounter Summary ---
:1985 Author Organization [facility] Address [address] [place] [address] Care Team Providers Name Role Phone Unavailable Primary Care Provider Unavailable Encounter Details Date Type Department Care Team Description 10/11/2010 Hospital Encounter HX [facility] Steve Dupont M.D. 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 - 10/11/2010 12:00 AM CST [id number] IMPRESSION/REPORT/PLAN Ultrasound is done. Please see ultrasound sheet. No evidence of any abnormalities noted. Patient is aware this is not a complete screening test for congenital defects. It appears to be a male . Will have her back in 3 weeks. CHIEF COMPLAINT/REASON FOR VISIT Nancy comes in today for OB check. She is also here for ultrasound. PHYSICAL EXAM AREA EXAM TEXT ABDOMEN Fundal height consistent with her dates. heart tones were in the 170 range. BDB/mgd Signed Aidan Diaz M.D. Obstetrics & Gynecology Electronically Signed By:AIDAN DIAZ MD On 10/17/2010 11:41 AM Source: [facility] MHSDOLBEYNONRADSYS Document Id: [id number] OGY SURGEON documented in this encounter Miscellaneous Notes Miscellaneous - Aidan Diaz M.D. - 10/11/2010 11:02 AM CST [place] [address] Visit Information Name: NANCY CAMPBELL Current Date: 10/11/2010 11:02:16 Primary Care Provider: AIDAN DIAZ MD [phone] Your Medications Here is a list of [...] Appointments found Your Goals/Additional instructions: Source: [facility] POWERCHART Document Id: [id number] Miscellaneous - Aidan Daiz M.D. - 10/11/2010 11:02 AM CST [place] [address] Visit Information Name: NANCY CAMPBELL Current Date: 10/11/2010 11:02:15 Primary Care Provider: AIDAN DIAZ MD [phone] NANCY CAMPBELL has been given the following [...] the patient and/or family, guardian/caregiver. Source: [facility] POWERCHART Document Id: [id number] documented in this encounter Plan of Treatment Upcoming Encounters Date Type Specialty Care Team Description 10/19/2022 Procedure visit Neurology Marina Winter M.D., M.P.H. [address] [phone] (Wo rk) Scheduled Procedures Name Priority Associated Diagnoses Date/Time LIFT THIGH Excessive And Redundant Skin And Subcutaneous Tissue documented as of this encounter Visit Diagnoses Not on filedocumented in this encounter
--- OUTSIDE RECORDS SUMMARY | 2022-09-05 06:16 | XMS_ITS | Encounter Summary ---
:1985 Author Organization [facility] Address [address] [place] [address] Care Team Providers Name Role Phone Unavailable Primary Care Provider Unavailable Encounter Details Date Type Department Care Team Description 04/13/2011 Hospital Encounter HX [facility] Steve Dupont M.D. [address] [place] [address] (Wo rk) Social History Tobacco Use Types [...] How often do you attend scientology or advent Never 07/04/2019 services? 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 - 04/13/2011 12:00 AM CDT [id number] IMPRESSION/REPORT/PLAN 1. Normal 6 week checkup. 2. [...] fine. GENITALIA External genitalia, Bartholin's, urethral and Colwich's glands within normal limits. Vagina normal rugae. Cervix appears multiparous. Uterus is midposition, normal size, shape and consistency. Adnexa without masses or tenderness. BDB/mgd Signed Aidan Diaz M.D. Obstetrics & Gynecology Electronically Signed By: AIDAN DIAZ MD On: 04/18/2011 08:47 AM Source: [facility] MHSDOLBEYNONRADSYS Document Id: [id number] documented in this encounter Miscellaneous Notes Miscellaneous - Cecil Saleh L.P.N. - 04/13/2011 10:55 AM CDT Adult Director Of Investigations Intake/History Adult Director Of Investigations Intake/History Entered On: 04/13/2011 10:58 CDT Performed [...] LPN; Reviewed Date: 02/28/2011 15:58 CDT Source: [facility] [employer] Document Id: [id number] CDT!22 documented in this encounter Plan of Treatment Upcoming Encounters Date Type Specialty Care Team Description 10/19/2022 Procedure visit Neurology Marina Winter M.D., M.P.H. [address] [place] [phone] (Wo rk) Scheduled Procedures Name Priority Associated Diagnoses Date/Time LIFT THIGH Excessive And Redundant Skin And Subcutaneous Tissue documented as of this encounter Visit Diagnoses Not on filedocumented in this encounter Additional Health Concerns Assessment Noted Time PHQ-9 Depression Total Score: 13 02/27/2011 2:40 PM CD T documented as of this encounter
--- OUTSIDE RECORDS SUMMARY | 2022-09-05 06:16 | XMS_ITS | Encounter Summary ---
:1985 Author Organization [facility] Address [address] [place] [address] Care Team Providers Name Role Phone Unavailable Primary Care Provider Unavailable Encounter Details Date Type Department Care Team Description 11/13/2011 Hospital Encounter HX [facility] FAMILYPRA Grandalfred, Lizandro Olguin, P.ARodrigo-Nadya [address] [place], [place] [phone] (Wo rk) Social History Tobacco Use Types [...] How often do you attend hindu or roman catholic Never 07/04/2019 services? 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 - 11/13/2011 12:00 AM CST [id number] CHIEF COMPLAINT/REASON FOR VISIT Discuss control. HISTORY [...] LEXII MINOR On: 11/17/2011 02:30 PM Source: [facility] MHSDOLBEYNONRADSYS Document Id: [id number] RVISOR TELEVISION CHASSIS REPAIR documented in this encounter Miscellaneous Notes Miscellaneous - Helen Blandon L.P.N. - 11/13/2011 3:27 PM CST Adult Land Title Examiner Intake/History Adult Land Title Examiner Intake/History Entered On: 11/13/2011 15:30 SUPERVISOR TELEVISION CHASSIS REPAIR Performed On: 11/13/2011 15:27 SUPERVISOR TELEVISION CHASSIS REPAIR by HELEN BLANDON Intake Chief Complaint : consult on control also wants a test Temperature Oral : 37.0C(Converted to: 98.6DegF) Peripheral Pulse Rate : 76/min Respiratory Rate : 22/min (HI) Systolic Blood Pressure : 116mmHg Diastolic Blood Pressure : 70mmHg NIBP Mean : 85mmHg Actual Weight : 113.4kg(Converted to: 250lb 0oz) Dosing Weight Clinic : 113.40kg HELEN BLANDON - 11/13/2011 15:27 SUPERVISOR TELEVISION CHASSIS REPAIR General Info Information Given By : Patient Preferred Communication Mode : Verbal Languages : Rwandan HELEN BLANDON - 11/13/2011 15:27 SUPERVISOR TELEVISION CHASSIS REPAIR Subjective Pain Symptoms : No HELEN BLANDON - 11/13/2011 15:27 SUPERVISOR TELEVISION CHASSIS REPAIR Dependent Habits Tobacco Use/Currently Using : No Exposure to Tobacco Smoke : Other: never Smoking Status : Never smoker ARTURHELEN RAYMOND - 11/13/2011 15:27 SUPERVISOR TELEVISION CHASSIS REPAIR Tobacco Use Grid Other Tobacco Frequency : non HELEN BLANDON - 11/13/2011 15:27 SUPERVISOR TELEVISION CHASSIS REPAIR Caffeine Use Grid Caffeine Use : Current Type : Soft drinks Frequency : Daily EMILIANOZulema HELEN - 11/13/2011 15:27 SUPERVISOR TELEVISION CHASSIS REPAIR Allergy Allergies (Active) NKA Estimated Onset Date: Unspecified ; Created By: CECIL ALEGRIA LPN; Reaction Status: Active ; Category: Drug ; Substance: NKA ; Type: Allergy ; Updated By: CECIL ALEGRIA LPN; Reviewed Date: 11/13/2011 15:27 SUPERVISOR TELEVISION CHASSIS REPAIR Source: [employer] Document Id: [id number] SUPERVISOR TELEVISION CHASSIS REPAIR!29 RVISOR TELEVISION CHASSIS REPAIR Miscellaneous - Conversion, Historical Provider Ser - 11/13/2011 1:58 PM SUPERVISOR TELEVISION CHASSIS REPAIR PHQ-9 PHQ-9 Entered On: 11/14/2011 13:59 SUPERVISOR TELEVISION CHASSIS REPAIR Performed On: 11/13/2011 13:58 SUPERVISOR TELEVISION CHASSIS REPAIR by TOÑO FRAGA PHQ-Sola Little interest or pleasure in doing things [...] : 13 TOÑO FRAGA - 11/14/2011 13:58 SUPERVISOR TELEVISION CHASSIS REPAIR Source: [employer] Document Id: [id number] SUPERVISOR TELEVISION CHASSIS REPAIR!12 documented in this encounter Plan of Treatment Upcoming Encounters Date Type Specialty Care Team Description 10/19/2022 Procedure visit Neurology Marina Winter M.D., M.P.H. [address] [place] [phone] (Wo rk) Scheduled Procedures Name Priority Associated Diagnoses Date/Time LIFT THIGH Excessive And Redundant Skin And Subcutaneous Tissue documented as of this encounter Procedures Procedure Name Priority Date/Time Associated Diagnosis Comme nts TEST, U Routine 11/13/2011 4:19 PM Resu lts for this SUPERVISOR TELEVISION CHASSIS REPAIR procedure are i n the results section. documented in this encounter Results Test, Qualitative, Urine (11/13/2011 4:19 PM SUPERVISOR TELEVISION CHASSIS REPAIR) [facility] gist Method Time Signature HXBeta-hCG Negative POWERCHART Qualitative Urine Specimen (Source) Anatomical Collection Method Collection Time Re ceived Time Location / / Volume Laterality Urine 11/13/2011 4:19 PM SUPERVISOR TELEVISION CHASSIS REPAIR Lexii Minor P.A.-C. LAB URINE ORDERABLES Performing Organization Address City/State/ZIP Code Phon e Number POWERCHART documented in this encounter Visit Diagnoses Not on filedocumented in this encounter Additional Health Concerns Assessment Noted Time PHQ-9 Depression Total Score: 13 11/13/2011 1:58 PM CS T documented as of this encounter
--- OUTSIDE RECORDS SUMMARY | 2022-09-05 06:16 | XMS_ITS | Encounter Summary ---
:1985 Author Organization [facility] Address [address] [place] [address] Care Team Providers Name Role Phone Unavailable [...] How often do you attend mu-ism or anabaptism Never 07/04/2019 services? 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 If [...] WELCH CNM On 10/13/2010 01:26 PM Source: [facility] MHSDOLBEYNONRADSYS Document Id: [id number] NESS SYSTEM MANAGER documented in this encounter Miscellaneous Notes Miscellaneous - Diana Welch CNM - 10/11/2010 11:08 AM CST Ambulatory [place] [address] Visit Information Name: NANCY CAMPBELL Current Date: 10/11/2010 11:08:42 Primary Care Provider: AIDAN DIAZ MD [id number] Your Medications Here is a list of [...] No Appointments found Your Goals/Additional instructions: Source: [facility] POWERCHART Document Id: [id number] Electronically signed by Maria R, [facility] Reeling Machine Operator [id number] at 04/09/2017 5:54 AM CDT Miscellaneous - Diana Welch CNM - 10/11/2010 11:08 AM CST Ambulatory Depart Summary [place] [id number] Visit Information Name: NANCY CAMPBELL Current Date: 10/11/2010 11:08:42 Primary Care Provider: AIDAN DIAZ MD [id number] NANCY CAMPBELL has been given the following [...] to the patient and/or family, guardian/caregiver. Source: [facility] POWERCHART Document Id: [id number] Electronically signed by Maria R [facility] Reeling Machine Operator [id number] at 04/09/2017 5:54 AM CDT Bunny - Nicki Vaz, R.N. - 10/11/2010 10:32 AM CST Adult Fig Washer Intake/History Adult Fig Washer Intake/History Entered On: 10/11/2010 10:33 BUSINESS SYSTEM MANAGER Performed On: 10/11/2010 10:32 BUSINESS SYSTEM MANAGER by NICKI PAIGE Intake Chief Complaint: OB visit 19 weeks Systolic Blood Pressure: 124mmHg Diastolic Blood Pressure: 56mmHg NIBP Mean: 79mmHg BP Location: Left upper extremity Actual Weight: 114.800kg(Converted to: 253lb 1oz) Dosing Weight Clinic: 114.80kg NICKI PAIGE - 10/11/2010 10:32 BUSINESS SYSTEM MANAGER Subjective Pain Symptoms: No NICKI PAIGE - 10/11/2010 10:32 BUSINESS SYSTEM MANAGER Dependent Habits Tobacco Use/Currently Using: No NICKI PAIGE - 10/11/2010 10:32 BUSINESS SYSTEM MANAGER Caffeine Use Grid Caffeine Use: Current Type: Soft drinks Frequency: Daily NICKI PAIGE - 10/11/2010 10:32 BUSINESS SYSTEM MANAGER Allergies Allergies (Active) NKA Estimated Onset Date: Unspecified ; Created By: CECIL ALEGRIA LPN; Reaction Status: Active ; Category: Drug ; Substance: NKA ; Type: Allergy ; Updated By: CECIL ALEGRIA LPN; Reviewed Date: 09/15/2010 10:22 BUSINESS SYSTEM MANAGER Source: [employer] Document Id: [id number] BUSINESS SYSTEM MANAGER!18 NESS SYSTEM MANAGER documented in this encounter Plan of Treatment Upcoming Encounters Date Type Specialty Care Team Description 10/19/2022 Procedure visit Neurology Marina Winter M.D., M.P.H. [address] [phone] (Wo rk) Scheduled Procedures Name Priority Associated Diagnoses Date/Time LIFT THIGH Excessive And Redundant Skin And Subcutaneous Tissue documented as of this encounter Visit Diagnoses Not on filedocumented in this encounter
--- OUTSIDE RECORDS SUMMARY | 2022-09-05 06:16 | XMS_ITS | Encounter Summary ---
:1985 Author Organization [facility] Address [address] [place] [address] Care Team Providers Name Role Phone Unavailable [...] How often do you attend sabianist or confucianism Never 07/04/2019 services? 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 - 02/27/2011 12:00 AM CDT [id number] CHIEF COMPLAINT/ REASON FOR VISIT 1. Postop [...] She has no thoughts of hurting her . She reports good pain control. She is [...] 2. section 02/19/2011 at 37 weeks, male 5 pounds 11 ounces 3. section 07/02/2005 4. section 40 weeks, gestational diabetes, female infant 7 pounds 4 ounces. ADULT PREVENTATIVE SERVICES [...] with her primary provider at [facility] for evaluation and management of her migraine headaches. JTS/mgd Signed Kit Hathaway M.D. Obstetrics & Gynecology Electronically Signed By: KIT HATHAWAY MD On: 03/02/2011 08:59 Source: [facility] MHSDOLBEYNONRADSYS Document Id: [id number] documented in this encounter Procedure Notes Maria [...] JESSICA BULLARD - 02/27/2011 14:53 CDT Source: [facility] POWERCHART Document Id: [id number] CDT!10 documented in this encounter Nursing Notes [...] HATHAWAY MD - 02/27/2011 14:29 CDT Source: [facility] GT Urological Document Id: [id number] CDT!7 documented in this encounter Miscellaneous Notes [...] Patient ( ) ( ) Call for Construction Administrative Assistant ( ) Follow up on Results ( ) Other: PROVIDER: ( ) Call Physician ( ) Call Pharmacist ( ) Call Lab ( ) Other: Special Instructions: Comments: Source: [facility] POWERCHART Document Id: [id number] Miscellaneous - Kit Hathaway M.D. - 02/27/2011 2:42 PM CDT Ambulatory Patient Summary [address] [address] Visit Information Name: NANCY CAMPBELL Current Date: [...] No Appointments found Your Goals/Additional instructions: Source: [facility] POWERCHART Document Id: [id number] Miscellaneous - Kit Hathaway M.D. - 02/27/2011 2:42 PM CDT [place] [address] Visit Information Name: NANCY CAMPBELL Current Date: [...] to the patient and/or family, guardian/caregiver. Source: [facility] POWERCHART Document Id: [id number] Miscellaneous - Kit Hathaway M.D. - 02/27/2011 [...] HATHAWAY MD - 02/27/2011 14:40 CDT Source: [employer] Document Id: [id number] CDT!13 Miscellaneous - Cecil Saleh L.PRodrigoNRodrigo - 02/27/2011 2:14 PM CDT Adult Handle Attacher Intake/History Adult Handle Attacher Intake/History Entered On: 02/27/2011 14:15 CDT Performed [...] LPN; Reviewed Date: 02/27/2011 14:11 CDT Source: [employer] Document Id: [id number] CDT!22 documented in this encounter Plan of Treatment Upcoming Encounters Date Type Specialty Care Team Description 10/19/2022 Procedure visit Neurology Marina Winter M.D., M.P.H. [address] [phone] (Wo rk) Scheduled Procedures Name Priority Associated Diagnoses Date/Time LIFT THIGH Excessive And Redundant Skin And Subcutaneous Tissue documented as of this encounter Visit Diagnoses Not on filedocumented in this encounter Additional Health Concerns Assessment Noted Time PHQ-9 Depression Total Score: 13 02/27/2011 2:40 PM CD T documented as of this encounter
--- OUTSIDE RECORDS SUMMARY | 2022-09-05 06:16 | XMS_ITS | Encounter Summary ---
:1985 Author Organization [facility] Address [address] [place] [address] Care Team Providers Name Role Phone Unavailable Primary Care Provider Unavailable Encounter Details Date Type Department Care Team Description 05/05/2011 Hospital Encounter HX NO MAPPING Luciano Francois M.D. [address] [place], [place] [phone] (Wo rk) Social History [...] How often do you attend episcopal or evangelical Never 07/04/2019 services? 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 [address] [place] [phone] (Wo rk) Scheduled Procedures Name Priority Associated Diagnoses Date/Time LIFT THIGH Excessive And Redundant Skin And Subcutaneous Tissue documented as of this encounter Visit Diagnoses Not on filedocumented in this encounter Additional Health Concerns Assessment Noted Time PHQ-9 Depression Total Score: 13 02/27/2011 2:40 PM CD T documented as of this encounter
--- OUTSIDE RECORDS SUMMARY | 2022-09-05 06:16 | XMS_ITS | Encounter Summary ---
:1985 Author Organization [facility] Address [address] [place] [address] Care Team Providers Name Role Phone Unavailable Primary Care Provider Unavailable Encounter Details Date Type Department Care Team Description 11/12/2010 Hospital Encounter HX NO MAPPING Steffi Kendrick M.D. [address] [place] [phone] (Wo rk) Social History Tobacco [...] How often do you attend religious or mosque Never 07/04/2019 services? 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 [address], [place] [phone] (Wo rk) Scheduled Procedures Name Priority Associated Diagnoses Date/Time LIFT THIGH Excessive And Redundant Skin And Subcutaneous Tissue documented as of this encounter Visit Diagnoses Not on filedocumented in this encounter
--- OUTSIDE RECORDS SUMMARY | 2022-09-05 06:16 | XMS_ITS | Encounter Summary ---
:1985 Author Organization [facility] Address [address] [place] [address] Care Team Providers Name Role Phone Unavailable Primary Care Provider Unavailable Encounter Details Date Type Department Care Team Description 12/21/2011 Hospital Encounter HX [facility] ALLCAR Sj Lawton, P.ARodrigo-CRodrigo [address] [place] [phone] (Wo rk) Social History Tobacco [...] How often do you attend denominational or christianity Never 07/04/2019 services? 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 documented as of this encounter Last Filed Vital Signs Vital Sign Reading Time Taken Comments Blood Pressure 126/66 12/21/2011 1:25 PM REMANUFACTURING TECHNICIAN Pulse 76 12/21/2011 1:25 PM REMANUFACTURING TECHNICIAN Temperature - - Respiratory Rate - - Oxygen Saturation - - Inhaled Oxygen Concentration - - Weight - - Height - - Body Mass Index - - documented in this encounter Miscellaneous Notes Miscellaneous - Mamie Lawton - 12/21/2011 2:06 PM CST School or Work Excuse School or Work Excuse Entered On: 12/21/2011 14:07 REMANUFACTURING TECHNICIAN Performed On: 12/21/2011 14:06 REMANUFACTURING TECHNICIAN by MAMIE LAWTON School or Work Excuse Date Patient Seen : 12/21/2011 REMANUFACTURING TECHNICIAN Date of Return to School/Work Without Restrictions : 12/25/2011 REMANUFACTURING TECHNICIAN MAMIE LAWTON - 12/21/2011 14:06 REMANUFACTURING TECHNICIAN Source: [facility] [place] [employer] Document Id: [id number] REMANUFACTURING TECHNICIAN!4 NUFACTURING TECHNICIAN Miscellaneous - Chapis Davalos L.P.N. - 12/21/2011 1:25 PM REMANUFACTURING TECHNICIAN Adult Octave Board Assembler Intake/History Adult Octave Board Assembler Intake/History Entered On: 12/21/2011 13:32 REMANUFACTURING TECHNICIAN Performed On: 12/21/2011 13:25 REMANUFACTURING TECHNICIAN by CHAPIS DAVALOS Intake Chief Complaint : Emotionally unstable -having home problems. Temperature Oral : 36.7C(Converted to: 98.1DegF) Peripheral Pulse Rate : 76/min Systolic Blood Pressure : 126mmHg Diastolic Blood Pressure : 66mmHg NIBP Mean : 86mmHg CHAPIS DAVALOS - 12/21/2011 13:25 REMANUFACTURING TECHNICIAN Subjective Pain Symptoms : No CHAPIS DAVALOS - 12/21/2011 13:25 REMANUFACTURING TECHNICIAN Dependent Habits Tobacco Use/Currently Using : No Exposure to Tobacco Smoke : Other: never Smoking Status : Never smoker CHAPIS DAVALOS - 12/21/2011 13:25 REMANUFACTURING TECHNICIAN Tobacco Use Grid Other Tobacco Frequency : non CHAPIS DAVALOS - 12/21/2011 13:25 REMANUFACTURING TECHNICIAN Caffeine Use Grid Caffeine Use : Current Type : Soft drinks Frequency : Daily CHAPIS DAVALOS - 12/21/2011 13:25 REMANUFACTURING TECHNICIAN Allergy Allergies (Active) NKA Estimated Onset Date: Unspecified ; Created By: CECIL ALEGRIA LPN; Reaction Status: Active ; Category: Drug ; Substance: NKA ; Type: Allergy ; Updated By: CECIL ALEGRIA LPN; Reviewed Date: 11/13/2011 15:27 REMANUFACTURING TECHNICIAN Source: [facility] POWERCHART Document Id: [id number] REMANUFACTURING TECHNICIAN!22 NUFACTURING TECHNICIAN documented in this encounter Plan of Treatment Upcoming Encounters Date Type Specialty Care Team Description 10/19/2022 Procedure visit Neurology Marina Winter M.D., M.P.H. [address] [phone] (Wo rk) Scheduled Procedures Name Priority Associated Diagnoses Date/Time LIFT THIGH Excessive And Redundant Skin And Subcutaneous Tissue documented as of this encounter Visit Diagnoses Not on filedocumented in this encounter Additional Health Concerns Assessment Noted Time PHQ-9 Depression Total Score: 13 11/13/2011 1:58 PM CS T documented as of this encounter
--- OUTSIDE RECORDS SUMMARY | 2022-09-05 06:16 | XMS_ITS | Encounter Summary ---
:1985 Author Organization [facility] Address [address] [place] [address] Care Team Providers Name Role Phone Unavailable Primary Care Provider Unavailable Encounter Details Date Type Department Care Team Description 01/24/2011 Hospital Encounter HX [facility] Steve Dupont M.D. [address] [place] [address] (Wo rk) Social History Tobacco Use Types [...] How often do you attend buddhism or voodoo Never 07/04/2019 services? 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 - 01/24/2011 12:00 AM CDT [id number] IMPRESSION/REPORT/PLAN She has not been following her [...] AIDAN DIAZ MD On: 01/25/2011 10:54 Source: [facility] MHSDOLBEYNONRADSYS Document Id: [id number] documented in this encounter Miscellaneous Notes Miscellaneous - Aidan Diaz M.D. - 01/24/2011 2:07 PM CDT [place] [address] Visit Information Name: NANCY CAMPBELL Current Date: [...] No Appointments found Your Goals/Additional instructions: Source: [facility] POWERCHART Document Id: [id number] Electronically signed by Maria R, [facility] Service Counter Cashier [id number] at 04/08/2017 5:46 PM CDT Miscellaneous - Aidan Diaz M.D. - 01/24/2011 2:07 PM CDT Ambulatory Depart Summary [address] [address] Visit Information Name: NANCY CAMPBELL Current Date: [...] to the patient and/or family, guardian/caregiver. Source: [facility] [employer] Document Id: [id number] Electronically signed by Maria R [facility] Service Counter Cashier [id number] at 04/08/2017 5:46 PM CDT Miscellaneous - Cecil Saleh L.PRodrigoNRodrigo - 01/24/2011 1:50 PM CDT Adult Designer Architect Intake/History Adult Designer Architect Intake/History Entered On: 01/24/2011 13:51 CDT Performed On: 01/24/2011 13:50 CDT by CECIL SALHE LPN Intake Chief Complaint: OB visit at [...] CECIL SALEH LPN; Reviewed Date: 09/15/2010 10:22 SWEEPING COMPOUND BLENDER Source: [facility] [employer] Document Id: [id number] CDT!19 documented in this encounter Plan of Treatment Upcoming Encounters Date Type Specialty Care Team Description 10/19/2022 Procedure visit Neurology Marina Winter M.D., M.P.H. [address] [phone] (Wo rk) Scheduled Procedures Name Priority Associated Diagnoses Date/Time LIFT THIGH Excessive And Redundant Skin And Subcutaneous Tissue documented as of this encounter Visit Diagnoses Not on filedocumented in this encounter
--- OUTSIDE RECORDS SUMMARY | 2022-09-05 06:16 | XMS_ITS | Encounter Summary ---
:1985 Author Organization [facility] Address [address] [place] [address] Care Team Providers Name Role Phone Unavailable Primary Care Provider Unavailable Encounter Details Date Type Department Care Team Description 08/15/2011 Hospital Encounter HX [facility] FAMILYPRA Grandalfred, Lizandro Olguin, P.ARodrigo-Nadya [address] [facility] [place], [place] [phone] (Wo rk) Social History Tobacco Use Types [...] How often do you attend confucianism or yarsanism Never 07/04/2019 services? 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 - 08/15/2011 12:00 AM CDT [id number] CHIEF COMPLAINT / REASON FOR VISIT Establish [...] she has 2 young children and a mor-sdpwu-adp who does not sleep well during the [...] and a stepdaughter. She is currently a nmva-xt-uzya mom. She does not smoke or use [...] Alert. SKIN: No rashes, lesions or bruising. Pen Mar, warm and dry. EYES: PERRLA. EOM intact. [...] JENAE MINOR On: 08/24/2011 09:25 AM Source: [facility] MHSDOLBEYNONRADSYS Document Id: [id number] documented in this encounter Procedure Notes Conversion, Historical Provider Ser - 08/15/2011 12:06 PM CDT Depo-Provera Administration Depo-Provera Administration Entered On: 08/15/2011 12:06 CDT Performed On: 08/15/2011 12:06 CDT by TOÑO FRAGA Depo-Provera Administration Annual Exam in the Past 12 Months: Yes Return appointment: 11/15/2010 MANAGER PROJECT MANAGEMENT Needs test: No TOÑO FRAGA - 08/15/2011 12:06 CDT Vitals/Ht/Wt Systolic Blood Pressure: 112mmHg Diastolic Blood Pressure: 68mmHg NIBP Mean: 83mmHg TOÑO FRAGA - 08/15/2011 12:06 CDT Source: [facility] [employer]jia Document Id: [id number] CDT!9 documented in this encounter Miscellaneous Notes [...] results Due Date/Time: 08/18/2011 11:23:00 CDT Source: [facility] [employer]ia Document Id: [id number] Electronically signed by [facility], [facility] Color Printer Operator [id number] at 04/08/2017 5:12 PM CDT Miscellaneous - [...] results Due Date/Time: 08/16/2011 10:20:00 CDT Source: [facility] [employer]ia Document Id: [id number] Electronically signed by [facility], [facility] Color Printer Operator [id number] at 04/08/2017 5:12 PM CDT Miscellaneous - [...] results Due Date/Time: 08/16/2011 09:09:00 CDT Source: [facility] POWERCHART Document Id: [id number] Electronically signed by [facility], [facility] Color Printer Operator [id number] at 04/08/2017 5:12 PM CDT Miscellaneous - [...] results Due Date/Time: 08/15/2011 16:33:00 CDT Source: [facility] [employer] Document Id: [id number] Electronically signed by Conversion, [facility] Color Printer Operator [id number] at 04/08/2017 5:12 PM CDT Miscellaneous - Jenae Minor P.A.-C., P.A. - 08/15/2011 2:50 PM CDT Results Notification Document Contains Addenda Addendum by TOÑO FRAGA on 15 August 2011 15:39:17 CDT pt notified From: JENAE MINOR To: TOÑO FRAGA Sent: 08/15/2011 14:50:01 CDT ! Show up: 08/15/2011 14:49:00 CDT Subject: Results Notification Actions: Notify patient of results Due Date/Time: 08/15/2011 14:49:00 CDT Source: [facility] Vow To Be ChicCHART Document Id: [id number] Electronically signed by Conversion, [facility] Color Printer Operator [id number] at 04/08/2017 5:12 PM CDT Miscellaneous - Jenae Minor P.A.-C., P.A. - 08/15/2011 12:13 PM CDT [facility] [address] [place] [address] Visit Information Name: NANCY ROBINS Current Date: [...] No Appointments found Your Goals/Additional instructions: Source: [facility] POWERCHART Document Id: [id number] Electronically signed by Conversion, [facility] Color Printer Operator [id number] at 04/08/2017 5:12 PM CDT Miscellaneous - Jenae Minor P.A.-C., P.A. - 08/15/2011 12:13 PM CDT Ambulatory Depart Summary [address] [address] Visit Information Name: NANCY ROBINS Current Date: 08/15/2011 12:13:39 Primary Care Provider: [...] to the patient and/or family, guardian/caregiver. Source: [facility] Youjia Document Id: [id number] Electronically signed by Conversion, [facility] Color Printer Operator [id number] at 04/08/2017 5:12 PM CDT Miscellaneous - Conversion, Historical Provider Ser - 08/15/2011 11:04 AM CDT Adult Newspaper Correspondent Intake/History Adult Newspaper Correspondent Intake/History Entered On: 08/15/2011 11:06 CDT Performed [...] Clinic BSA: 2.26 Body Mass Index: 40.28kg/m2 PHILLY TOÑO - 08/15/2011 11:04 CDT Subjective Pain Symptoms: [...] LPN; Reviewed Date: 08/15/2011 11:03 CDT Source: [facility] Vow To Be ChicCHART Document Id: [id number] CDT!29 Miscellaneous - Conversion, Historical Provider Ser [...] TOÑO FRAGA - 08/16/2011 9:20 CDT [facility] Document Id: [id number] CDT!13 documented in this encounter Plan of Treatment Upcoming Encounters Date Type Specialty Care Team Description 10/19/2022 Procedure visit Neurology Marina Winter M.D., M.P.H. [address] [phone] (Wo rk) Scheduled Procedures Name Priority Associated Diagnoses Date/Time LIFT THIGH Excessive And Redundant Skin And Subcutaneous Tissue documented as of this encounter Procedures Procedure Name Priority Date/Time Associated Comments Diagnosis ZZPATHOLOGY NON-DIMMER BOARD OPERATOR Routine 08/15/2011 12:00 Resu lts for this CYTOLOGY AM CDT procedure are i n the results section. documented in this encounter Results ZZPATHOLOGY NON-DIMMER BOARD OPERATOR CYTOLOGY (08/15/2011 12:00 AM CDT) Specimen (Source) Anatomical Location Collection Method / Collectio n Time Received Time / Laterality Volume 08/15/2011 Narrative [facility] - 08/23/20 11 10:50 AM CDT PATIENT IMAGES Choose the Image button to view related documents. Historical Provider LAB PATHOLOGY/CYTOLOGY ORDER BERRY Performing Organization Address City/State/ZIP Code Phon e Number [facility] documented in this encounter Visit Diagnoses Not on filedocumented in this encounter Additional Health Concerns Assessment Noted Time PHQ-9 Depression Total Score: 11 08/15/2011 9:20 AM CD T documented as of this encounter
--- OUTSIDE RECORDS SUMMARY | 2022-09-05 06:16 | XMS_ITS | Encounter Summary ---
:1985 Author Organization [facility] Address [address] [place] [address] Care Team Providers Name Role Phone Unavailable [...] How often do you attend voodoo or jainism Never 07/04/2019 services? 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 [address] [phone] (Wo rk) Scheduled Procedures Name Priority Associated Diagnoses Date/Time LIFT THIGH Excessive And Redundant Skin And Subcutaneous Tissue documented as of this encounter Visit Diagnoses Not on filedocumented in this encounter Additional Health Concerns Assessment Noted Time PHQ-9 Depression Total Score: 13 02/27/2011 2:40 PM CD T documented as of this encounter
--- OUTSIDE RECORDS SUMMARY | 2022-09-05 06:16 | XMS_ITS | Encounter Summary ---
:1985 Author Organization [facility] Address [address] [place] [address] Care Team Providers Name Role Phone Unavailable Primary Care Provider Unavailable Encounter Details Date Type Department Care Team Description 07/26/2011 Hospital Encounter HX [facility] Den Mckinley M.D. [address] [place], [place] [address] (Wo rk) Social History [...] How often do you attend taoism or worship Never 07/04/2019 services? 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 [address] [place] [phone] (Wo rk) Scheduled Procedures Name Priority Associated Diagnoses Date/Time LIFT THIGH Excessive And Redundant Skin And Subcutaneous Tissue documented as of this encounter Visit Diagnoses Not on filedocumented in this encounter Additional Health Concerns Assessment Noted Time PHQ-9 Depression Total Score: 13 02/27/2011 2:40 PM CD T documented as of this encounter
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
--- OUTSIDE RECORDS SUMMARY | 2022-09-05 06:16 | XMS_ITS | Encounter Summary ---
:1985 Author Organization [facility] Address [address] [place] [address] Care Team Providers Name Role Phone Unavailable Primary Care Provider Unavailable Encounter Details Date Type Department Care Team Description 08/18/2010 Hospital Encounter HX [facility] Steve Dupont M.D. [address] [place] [address] (Wo rk) Social History Tobacco Use Types [...] How often do you attend adventist or hoahaoism Never 07/04/2019 services? 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 - 08/18/2010 12:00 AM CDT [id number] IMPRESSION/REPORT/PLAN Migraines Plan: I am going to [...] headaches. She was hospitalized overnight down in [place]. She otherwise is doing well, as far as, the is concerned except for some slight nausea, which may or may not be related to the migraine itself. PHYSICAL EXAM AREA EXAM TEXT ABDOMEN heart tones 160's. Fundal height 12 cm. NEURO Cranial nerves II-XII intact. BDB/mgd Signed Aidan Daniels. Ella Diaz Obstetrics & Gynecology Electronically Signed By:AIDAN DIAZ MD On 08/24/2010 02:34 PM Source: [facility] MHSDOLBEYNONRADSYS Document Id: [id number] documented in this encounter Miscellaneous Notes Miscellaneous - Aidan Diaz M.D. - 08/18/2010 8:52 AM CDT [place]ulatory [place] [address] Visit Information Name: NANCY CAMPBELL Current Date: 08/18/2010 08:52:08 Primary Care Provider: AIDAN DIAZ MD [id number] Your Medications Here is a list of [...] Time Location Reason Provider 09/15/2010 10:00 FBCV DIRECTOR OF BUSINESS OPERATIONS ob Aidan Diaz MD Your Goals/Additional instructions: Source: [facility] POWERCHART Document Id: [id number] Miscellaneous - Aidan Diaz M.D. - 08/18/2010 8:52 AM CDT [place] [address] Visit Information Name: NANCY CAMPBELL Current Date: 08/18/2010 08:52:07 Primary Care Provider: AIDAN DIAZ MD [id number] NANCY CAMPBELL has been given the following [...] and/or family, guardian/caregiver. Source: [facility] sim4tec Document Id: [id number] Miscellaneous - Cecil Saleh L.P.N. - 08/18/2010 8:26 AM CDT Adult Wildlife Technician Intake/History Adult Wildlife Technician Intake/History Entered On: 08/18/2010 8:28 CDT Performed On: 08/18/2010 8:26 CDT by CECIL SALEH LPN Intake Chief Complaint: OB visit at 11 2/7 weeks c/o migraines seen at [place] [facility] Date: 05/01/2010 Systolic Blood Pressure: 114mmHg [...] LPN; Reviewed Date: 08/03/2010 9:10 CDT Source: [facility] [employer]4tec Document Id: [id number] CDT!20 documented in this encounter Plan of Treatment Upcoming Encounters Date Type Specialty Care Team Description 10/19/2022 Procedure visit Neurology Marina Winter M.D., M.P.H. [address] [place] [phone] (Wo rk) Scheduled Procedures Name Priority Associated Diagnoses Date/Time LIFT THIGH Excessive And Redundant Skin And Subcutaneous Tissue documented as of this encounter Visit Diagnoses Not on filedocumented in this encounter
--- OUTSIDE RECORDS SUMMARY | 2022-09-05 06:16 | XMS_ITS | Encounter Summary ---
:1985 Author Organization [facility] Address [address] [place] [address] Care Team Providers Name Role Phone Unavailable Primary Care Provider Unavailable Encounter Details Date Type Department Care Team Description 02/14/2011 Hospital Encounter HX [facility] Steve Dupont M.D. [address] [place] [address] (Wo rk) Social History Tobacco Use Types [...] How often do you attend tenriism or yazidism Never 07/04/2019 services? 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 - 02/14/2011 12:00 AM CDT [id number] IMPRESSION/REPORT/PLAN Labor precautions given. I will see [...] AIDAN DIAZ MD On: 02/15/2011 02:47 Source: [facility] MHSDOLBEYNONRADSYS Document Id: [id number] documented in this encounter Miscellaneous Notes Miscellaneous - Cecil Saleh L.P.N. - 02/14/2011 2:17 PM CDT Adult Aerophysics Engineer Intake/History Adult Aerophysics Engineer Intake/History Entered On: 02/14/2011 14:18 CDT Performed [...] CECIL SALEH LPN; Reviewed Date: 09/15/2010 10:22 DIRECTOR OF QUALITY IMPROVEMENT Source: [facility] POWERCHART Document Id: [id number] CDT!19 documented in this encounter Plan of Treatment Upcoming Encounters Date Type Specialty Care Team Description 10/19/2022 Procedure visit Neurology Marina Winter M.D., M.P.H. [address] [phone] (Wo rk) Scheduled Procedures Name Priority Associated Diagnoses Date/Time LIFT THIGH Excessive And Redundant Skin And Subcutaneous Tissue documented as of this encounter Visit Diagnoses Not on filedocumented in this encounter
--- OUTSIDE RECORDS SUMMARY | 2022-09-05 06:16 | XMS_ITS | Encounter Summary ---
:1985 Author Organization [facility] Address [address] [place] [address] Care Team Providers Name Role Phone Unavailable Primary Care Provider Unavailable Encounter Details Date Type Department Care Team Description 09/16/2010 Hospital Encounter HX NO MAPPING Jerald Adams M.D. [address] [place], [place] [address] (Wo rk) Social History [...] How often do you attend gnosticism or jewish Never 07/04/2019 services? 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 [address], [place] [phone] (Wo rk) Scheduled Procedures Name Priority Associated Diagnoses Date/Time LIFT THIGH Excessive And Redundant Skin And Subcutaneous Tissue documented as of this encounter Visit Diagnoses Not on filedocumented in this encounter
--- OUTSIDE RECORDS SUMMARY | 2022-09-05 06:16 | XMS_ITS | Encounter Summary ---
:1985 Author Organization [facility] Address [address] [place] [address] Care Team Providers Name Role Phone Unavailable Primary Care Provider Unavailable Encounter Details Date Type Department Care Team Description 05/05/2011 Hospital Encounter HX NO MAPPING Luciano Francois M.D. [address] [place], [place] [phone] (Wo rk) Social History [...] How often do you attend muslim or uatsdin Never 07/04/2019 services? 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 [address] [place] [phone] (Wo rk) Scheduled Procedures Name Priority Associated Diagnoses Date/Time LIFT THIGH Excessive And Redundant Skin And Subcutaneous Tissue documented as of this encounter Visit Diagnoses Not on filedocumented in this encounter Additional Health Concerns Assessment Noted Time PHQ-9 Depression Total Score: 13 02/27/2011 2:40 PM CD T documented as of this encounter
--- OUTSIDE RECORDS SUMMARY | 2022-09-05 06:16 | XMS_ITS | Encounter Summary ---
:1985 Author Organization [facility] Address [address] [place] [address] Care Team Providers Name Role Phone Unavailable Primary Care Provider Unavailable Encounter Details Date Type Department Care Team Description 01/10/2011 Hospital Encounter HX [facility] Steve Dupont M.D. [address] [place] [address] (Wo rk) Social History Tobacco Use Types [...] How often do you attend religious or latter-day Never 07/04/2019 services? 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 - 01/10/2011 12:00 AM CST [id number] IMPRESSION/REPORT/PLAN Going to take her off work, [...] AIDAN DIAZ MD On: 01/16/2011 09:10 Source: [facility] MHSDOLBEYNONRADSYS Document Id: [id number] documented in this encounter Miscellaneous Notes Miscellaneous - Aidan Diaz M.D. - 01/10/2011 9:32 AM CST [place] [address] Visit Information Name: NANCY CAMPBELL Current Date: 01/10/2011 09:32:07 Primary Care Provider: AIDAN DIAZ MD [id number] Your Medications Here is a list of [...] No Appointments found Your Goals/Additional instructions: Source: [facility] POWERCHART Document Id: [id number] Miscellaneous - Aidan Diaz M.D. - 01/10/2011 9:32 AM CST [place] [address] Visit Information Name: NANCY CAMPBELL Current Date: 01/10/2011 09:32:05 Primary Care Provider: AIDAN DIAZ MD [id number] NANCY CAMPBELL has been given the following [...] to the patient and/or family, guardian/caregiver. Source: [facility] TheLockerCHART Document Id: [id number] Electronically signed by Maria R, [facility] Supervisor [employer] [id number] at 04/08/2017 5:46 PM CDT Miscellaneous - Cecil Saleh L.PRodrigoNRodrigo - 01/10/2011 9:00 AM CST Adult Tent Assembler Intake/History Adult Tent Assembler Intake/History Entered On: 01/10/2011 9:02 FLORAL SPECIALIST Performed On: 01/10/2011 9:00 FLORAL SPECIALIST by CECIL SALEH LPN Intake Chief Complaint: OB US LMP Date: 05/01/2010 Systolic Blood Pressure: 116mmHg Diastolic Blood Pressure: 70mmHg NIBP Mean: 85mmHg BP Location: Right upper extremity Actual Weight: 111.200kg(Converted to: 245lb 2oz) Dosing Weight Clinic: 111.20kg CEICL SALEH LPN - 01/10/2011 9:00 FLORAL SPECIALIST Subjective Pain Symptoms: No CECIL SALEH LPN - 01/10/2011 9:00 FLORAL SPECIALIST Dependent Habits Tobacco Use/Currently Using: No CECIL SALEH LPN - 01/10/2011 9:00 FLORAL SPECIALIST Caffeine Use Grid Caffeine Use: Current Type: Soft drinks Frequency: Daily CECIL SALEH LPN - 01/10/2011 9:00 FLORAL SPECIALIST Allergies Allergies (Active) NKA Estimated Onset Date: Unspecified ; Created By: CECIL SALEH LPN; Reaction Status: Active ; Category: Drug ; Substance: NKA ; Type: Allergy ; Updated By: CECIL SALEH LPN; Reviewed Date: 09/15/2010 10:22 FLORAL SPECIALIST Source: [facility] Ludi Document Id: [id number] FLORAL SPECIALIST!19 AL SPECIALIST documented in this encounter Plan of Treatment Upcoming Encounters Date Type Specialty Care Team Description 10/19/2022 Procedure visit Neurology aMrina Winter M.D., M.P.H. [address] [phone] (Wo rk) Scheduled Procedures Name Priority Associated Diagnoses Date/Time LIFT THIGH Excessive And Redundant Skin And Subcutaneous Tissue documented as of this encounter Visit Diagnoses Not on filedocumented in this encounter
--- OUTSIDE RECORDS SUMMARY | 2022-09-05 06:16 | XMS_ITS | Encounter Summary ---
:1985 Author Organization [facility] Address [address] [place] [address] Care Team Providers Name Role Phone Unavailable Primary Care Provider Unavailable Encounter Details Date Type Department Care Team Description 01/29/2012 Hospital Encounter HX [facility] FAMILYPRA Grandalfred, Lizandro Olguin, P.AMainor [address] [place], [place] [phone] (Wo rk) Social History Tobacco Use Types [...] How often do you attend sikh or hinduism Never 07/04/2019 services? 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 - 01/29/2012 12:00 AM CDT [id number] Chief complaint today is irregular periods, discuss [...] LEXII MINOR On: 02/02/2012 04:01 PM Source: [facility] MHSDOLBEYNONRADSYS Document Id: [id number] documented in this encounter Miscellaneous Notes Miscellaneous - Lexii Minor P.A.-C., P.A. - 01/29/2012 5:47 PM CDT Ambulatory Patient Summary [facility] [address] [place] [address] Visit Information Name: NANCY ROBINS Current Date: [...] [facility] POWERCHART Document Id: [id number] Miscellaneous - Lexii Minor P.A.-C., P.A. - 01/29/2012 5:47 PM CDT Ambulatory Depart Summary [address] [address] Visit Information Name: NANCY ROBINS Visit Date: [...] Additional Information: Source: [facility] FunnelyCHART Document Id: [id number] Miscellaneous - Conversion, Historical Provider Ser - 01/29/2012 4:39 PM CDT Adult Satellite Installer Intake/History Adult Satellite Installer Intake/History Entered On: 01/29/2012 16:42 CDT Performed [...] Standing scale Dosing Weight Clinic : 117.60kg TOÑO FRAGA - 01/29/2012 16:39 CDT General Info Information Given By : Patient Preferred Communication Mode : Verbal Languages : Grenadian TOÑO FRAGA - 01/29/2012 16:39 CDT Subjective Pain Symptoms : No TOÑO FRAGA - 01/29/2012 16:39 CDT Dependent Habits Tobacco Use/Currently Using : No Exposure to Tobacco Smoke : Other: never Smoking Status : Never smoker TOÑO FRAGA - 01/29/2012 16:39 CDT Tobacco Use Grid Other Tobacco Frequency : non TOÑO FRAGA 01/29/2012 16:39 CDT Caffeine Use Grid Caffeine Use : Current Type : Soft drinks Frequency : Daily TOÑO FRAGA - 01/29/2012 16:39 CDT Allergy Allergies (Active) NKA Estimated Onset Date: Unspecified ; Created By: CECIL ALEGRIA LPN; Reaction Status: Active ; Category: Drug ; Substance: NKA ; Type: Allergy ; Updated By: CECIL ALEGRIA LPN; Reviewed Date: 01/29/2012 16:38 CDT Source: [facility] FunnelyCHART Document Id: [id number] CDT!33 documented in this encounter Plan of Treatment Upcoming Encounters Date Type Specialty Care Team Description 10/19/2022 Procedure visit Neurology Marina Winter M.D., [facility].P.H[facility] [address] [facility] [place] [place] [phone] (Wo rk) Scheduled Procedures [...] RNA (01/29/2012 5:51 PM CDT) athologist Signature N. gonorr, Positive POWERCHART Misc, Amplified RNA Specimen (Source) Anatomical Collection Method Collection Time Re ceived Time Location / / Volume Laterality 01/29/2012 5:51 PM CDT Narrative POWERCHART - 02/01/2012 3:06 PM CDT Test Performed by: [employer] [address] [address] Information Security Officer: Tara Vargas, Ph. D. Lexii Minor P.A.-C. LAB HISTORICAL ORDERS Performing Organization Address City/State/ZIP Code Phon e Number POWERCHART HX-Ngonorr RNA Src (01/29/2012 5:51 PM CDT) athologist Signature Specimen urine POWERCHART Specimen (Source) Anatomical Collection Method Collection Time Re ceived Time Location / / Volume Laterality 01/29/2012 5:51 PM CDT Lexii Minor P.A.-C. LAB HISTORICAL ORDERS Performing Organization Address City/[facility]/ZIP Code Phon e Number POWERCHART HX-C Trach RNA (01/29/2012 5:51 PM CDT) [facility] Method Time Signature Chlamydia Negative POWERCHART trachomatis amplified RNA Specimen (Source) Anatomical Collection Method Collection Time Re ceived Time Location / / Volume Laterality 01/29/2012 5:51 PM CDT Lexii Sharif Soila MedellinC. LAB HISTORICAL ORDERS Performing Organization Address City/[facility] Code Phon e Number POWERCHART HX-C Trach RNA Src (01/29/2012 5:51 PM CDT) athologist Signature Specimen urine POWERCHART Specimen (Source) Anatomical Collection Method Collection Time Re ceived Time Location / / Volume Laterality 01/29/2012 5:51 PM CDT Lexii Sharif Soila Perez LAB HISTORICAL ORDERS Performing Organization Address City/[facility]/ZIP Code Phon e Number POWERCHART Test, Qualitative, Urine (01/29/2012 5:51 PM CDT) [facility] Method Time Signature HXBeta-hCG Negative POWERCHART Qualitative Urine Specimen (Source) Anatomical Collection Method Collection Time Re ceived Time Location / / Volume Laterality Urine 01/29/2012 5:51 PM CDT Lexii Sharif Soila Gruber. LAB URINE ORDERABLES Performing Organization Address City/[facility] Phon e Number POWERCHART documented in this encounter Visit Diagnoses Not on filedocumented in this encounter Additional Health Concerns Assessment Noted Time PHQ-9 Depression Total Score: 13 11/13/2011 1:58 PM CS T documented as of this encounter
--- OUTSIDE RECORDS SUMMARY | 2022-09-05 06:16 | XMS_ITS | Encounter Summary ---
:1985 Author Organization [facility] Address [address] [place] [address] Care Team Providers Name Role Phone Unavailable Primary Care Provider Unavailable Encounter Details Date Type Department Care Team Description 08/23/2010 Hospital Encounter HX [facility] Janie Moreno M.D. [address] [facility] [place] [phone] Social History Tobacco Use Types Packs/Day [...] How often do you attend sabianist or yarsanism Never 07/04/2019 services? 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 - 08/23/2010 12:00 AM CDT [id number] IMPRESSION / REPORT / PLAN 1. This [...] of migraine headaches. She went to the [facility] and she was treated in the hospital. [...] CC: Aidan Diaz M.D. Obstetrics & Gynecology [address] [place] [address] Electronically Signed By:JANIE MEEHAN MD On 09/19/2010 09:04 AM Modified by:JANIE MEEHAN MD On 09/19/2010 09:03 AM Source: [facility] MHSDOLBEYNONRADSYS Document Id: [id number] H TANK OPERATOR documented in this encounter Miscellaneous Notes Miscellaneous - Janie Meehan M.D. - 08/23/2010 1:42 PM CDT Reminder Msg From: JANIE MEEHAN MD To: TIFFANY GALICIA Sent: 08/23/2010 13:42:38 CDT ! Show up: 08/23/2010 13:38:00 CDT Subject: Reminder Msg Actions: Notify patient of results Due Date/Time: 08/23/2010 13:38:00 CDT Source: [facility] POWERCHART Document Id: [id number] Electronically signed by Maria R [facility]st[facility] Manager Non Profit [id number] at 04/09/2017 12:31 AM CDT Miscellaneous - Janie Meehan M.D. 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 - 08/23/2010 12:02 PM CDT Ambulatory Depart Summary [address] [address] Visit Information Name: CAMPBELLNANCY ELIZABETH Current Date: 08/23/2010 12:01:58 Primary Care Provider: AIDAN DIAZ MD [phone] NANCY CAMPBELL has been given the following [...] to the patient and/or family, guardian/caregiver. 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 Residential Sales Consultant Intake/History Entered On: 08/23/2010 11:26 CDT Performed [...] CDT Subjective Pain Symptoms: No ALIX DIETRICH 08/23/2010 11:22 CDT Dependent Habits Tobacco Use/Currently Using: No Alcohol Use: No ALIX DIETRICH 08/23/2010 11:22 CDT Caffeine Use Grid Caffeine Use: Current Type: Soft drinks Frequency: Daily ALIX DIETRICH 08/23/2010 11:22 CDT Allergies Allergies (Active) NKA Estimated Onset Date: Unspecified ; Created By: CECIL ALEGRIA LPN; Reaction Status: Active ; Category: Drug ; Substance: NKA ; Type: Allergy ; Updated By: CECIL ALEGRIA LPN; Reviewed Date: 08/03/2010 9:10 CDT Source: [facility] POWERCHART Document Id: [id number] CDT!24 documented in this encounter Plan of Treatment Upcoming Encounters Date Type Specialty Care Team Description 10/19/2022 Procedure visit Neurology Marina Winter M.D., M.P.H. [address] [phone] (Wo rk) Scheduled Procedures Name Priority Associated Diagnoses Date/Time LIFT THIGH Excessive And Redundant Skin And Subcutaneous Tissue documented as of this encounter Visit Diagnoses Not on filedocumented in this encounter
--- OUTSIDE RECORDS SUMMARY | 2022-09-05 06:16 | XMS_ITS | Encounter Summary ---
:1985 Author Organization [facility] Address [address] [place] [address] Care Team Providers Name Role Phone Unavailable [...] How often do you attend samaritan or hoahaoism Never 07/04/2019 services? 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 [address] [phone] (Wo rk) Scheduled Procedures Name Priority Associated Diagnoses Date/Time LIFT THIGH Excessive And Redundant Skin And Subcutaneous Tissue documented as of this encounter Visit Diagnoses Not on filedocumented in this encounter
--- OUTSIDE RECORDS SUMMARY | 2022-09-05 06:16 | XMS_ITS | Encounter Summary ---
:1985 Author Organization [facility] Address [address] [place] [address] Care Team Providers Name Role Phone Unavailable Primary Care Provider Unavailable Encounter Details Date Type Department Care Team Description 09/15/2010 Hospital Encounter HX [facility] Steve Dupont M.D. [address] [place] [address] (Wo rk) Social History Tobacco Use Types [...] How often do you attend sabianism or moravian Never 07/04/2019 services? 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 - 09/15/2010 12:00 AM CST [id number] IMPRESSION/REPORT/PLAN I spent over 35 minutes with Nancy today. itself is going well, but she is having some relationship issues with some trust and honesty. Talked to her about that at length and asked that she see her previous therapist up in [place] if possible, otherwise I have somebody here in [place] if that is easier for her. We [...] DIAZ MD On 09/20/2010 07:47 AM Source: [facility] MHSDOLBEYNONRADSYS Document Id: [id number] PIPE GAUGER documented in this encounter Miscellaneous Notes Miscellaneous - Aidan Diaz M.D. - 09/15/2010 11:14 AM CST Ambulatory [place] [address] Visit Information Name: NANCY CAMPBELL Current Date: 09/15/2010 11:14:26 Primary Care Provider: AIDAN DIAZ MD [id number] Your Medications Here is a list of [...] Time Location Reason Provider 10/11/2010 10:30 [facility] TRADER FIXED INCOME diabetic education per Dr. Diaz/seeing him after Diana Morris CNM 10/11/2010 11:00 FBCV TRADER FIXED INCOME ob ultrasound. I also wish her to see kiera welch that day to get set upwith a glucometer Aidan Diaz MD Your Goals/Additional instructions: Source: [facility] POWERCHART Document Id: [id number] Electronically signed by Maria R [facility] Glucose And Syrup Weigher [id number] at 04/09/2017 4:59 AM CDT Miscellaneous - Aidan Diaz M.D. - 09/15/2010 11:14 AM CST Ambulatory [place] [address] Visit Information Name: NANCY CAMPBELL Current Date: 09/15/2010 11:14:25 Primary Care Provider: AIDAN DIAZ MD [id number] NANCY CAMPBELL has been given the following [...] to the patient and/or family, guardian/caregiver. Source: [facility] Shicon Document Id: [id number] Electronically signed by Conversion, [facility] Glucose And Syrup Weigher [id number] at 04/09/2017 4:59 AM CDT Miscellaneous - Conversion, Historical Provider Ser - 09/15/2010 10:23 AM HOT PIPE GAUGER Adult Paper Coater Intake/History Adult Paper Coater Intake/History Entered On: 09/15/2010 10:23 HOT PIPE GAUGER Performed On: 09/15/2010 10:23 HOT PIPE GAUGER by YVETTE HEART LPN Intake Chief Complaint: OB check @ 15 2/7 weeks LMP Date: 05-01-10 Systolic Blood Pressure: 122mmHg Diastolic Blood Pressure: 70mmHg NIBP Mean: 87mmHg BP Location: Right upper extremity Heart Rhythm: Regular Actual Weight: 116.500kg(Converted to: 256lb 13oz) Dosing Weight Clinic: 116.50kg YVETTE HEART LPN - 09/15/2010 10:23 HOT PIPE GAUGER Subjective Pain Symptoms: No YVETTE HEART LPN - 09/15/2010 10:23 HOT PIPE GAUGER Dependent Habits Tobacco Use/Currently Using: No YVETTE HEART LPN - 09/15/2010 10:23 HOT PIPE GAUGER Caffeine Use Grid Caffeine Use: Current Type: Soft drinks Frequency: Daily YVETTE HEART LPN - 09/15/2010 10:23 HOT PIPE GAUGER Allergies Allergies (Active) NKA Estimated Onset Date: Unspecified ; Created By: CECIL ALEGRIA LPN; Reaction Status: Active ; Category: Drug ; Substance: NKA ; Type: Allergy ; Updated By: CECIL ALEGRIA LPN; Reviewed Date: 09/15/2010 10:22 HOT PIPE GAUGER Source: [facility] POWERCHART Document Id: [id number] HOT PIPE GAUGER!20 documented in this encounter Plan of Treatment Upcoming Encounters Date Type Specialty Care Team Description 10/19/2022 Procedure visit Neurology Marina Winter M.D., M.P.H. [address] [phone] (Wo rk) Scheduled Procedures Name Priority Associated Diagnoses Date/Time LIFT THIGH Excessive And Redundant Skin And Subcutaneous Tissue documented as of this encounter Visit Diagnoses Not on filedocumented in this encounter
--- OUTSIDE RECORDS SUMMARY | 2022-09-05 06:16 | XMS_ITS | Encounter Summary ---
:1985 Author Organization [facility] Address [address] [place] [address] Care Team Providers Name Role Phone Unavailable Primary Care Provider Unavailable Encounter Details Date Type Department Care Team Description 09/16/2010 Hospital Encounter HX NO MAPPING Jerald Adams M.D. [address] [place], [place] [address] (Wo rk) Social History [...] How often do you attend taoist or episcopalian Never 07/04/2019 services? 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 [address], [place] [phone] (Wo rk) Scheduled Procedures Name Priority Associated Diagnoses Date/Time LIFT THIGH Excessive And Redundant Skin And Subcutaneous Tissue documented as of this encounter Visit Diagnoses Not on filedocumented in this encounter
--- OUTSIDE RECORDS SUMMARY | 2022-09-05 06:16 | XMS_ITS | Encounter Summary ---
:1985 Author Organization [facility] Address [address] [place] [address] Care Team Providers Name Role Phone Unavailable [...] How often do you attend scientology or caodaism Never 07/04/2019 services? 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 - 02/28/2011 12:00 AM CDT [id number] CHIEF COMPLAINT/ REASON FOR VISIT Migraine headaches. [...] MARCIO LAY MD On: 03/02/2011 01:56 Source: [facility] MHSDOLBEYNONRADSYS Document Id: [id number] documented in this encounter Miscellaneous Notes Miscellaneous - Marcio Lay M.D. 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 - 02/28/2011 4:19 PM CDT Ambulatory Depart Summary [address] [address] Visit Information Name: NANCY CAMPBELL Current Date: [...] and/or family, guardian/caregiver. 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 Scoring Machine Operator Intake/History Adult Gum Scoring Machine Operator Intake/History Entered On: 02/28/2011 16:03 CDT Performed [...] Type: Soft drinks Frequency: Daily KHLOE GOLDBERG - 02/28/2011 16:00 CDT Allergy Allergies (Active) NKA Estimated Onset Date: Unspecified ; Created By: CECIL ALEGRIA LPN; Reaction Status: Active ; Category: Drug ; Substance: NKA ; Type: Allergy ; Updated By: CECIL ALEGRIA LPN; Reviewed Date: 02/28/2011 15:58 CDT [facility] Document Id: [id number] CDT!27 documented in this encounter Plan of Treatment Upcoming Encounters Date Type Specialty Care Team Description 10/19/2022 Procedure visit Neurology Marina Winter M.D., M.P.H. [address] [phone] (Wo rk) Scheduled Procedures Name Priority Associated Diagnoses Date/Time LIFT THIGH Excessive And Redundant Skin And Subcutaneous Tissue documented as of this encounter Visit Diagnoses Not on filedocumented in this encounter Additional Health Concerns Assessment Noted Time PHQ-9 Depression Total Score: 13 02/27/2011 2:40 PM CD T documented as of this encounter
--- OUTSIDE RECORDS SUMMARY | 2022-09-05 06:16 | XMS_ITS | Encounter Summary ---
:1985 Author Organization [facility] Address [address] [place] [address] Care Team Providers Name Role Phone Unavailable Primary Care Provider Unavailable Encounter Details Date Type Department Care Team Description 12/06/2010 Hospital Encounter HX [facility] Steve Dupont M.D. [address] [place] [address] (Wo rk) Social History Tobacco Use Types [...] How often do you attend lutheran or cheondoism Never 07/04/2019 services? 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/2018 10:53 AM KILN HAND documented as of this encounter Progress Notes Aidan Diaz M.D. - 12/06/2010 12:00 AM CST [id number] IMPRESSION/REPORT/PLAN I have written her a letter [...] DIAZ MD On 12/07/2010 02:24 PM Source: [facility] MHSDOLBEYNONRADSYS Document Id: [id number] HAND documented in this encounter Miscellaneous Notes Telephone Encounter - Conversion, Historical Provider Ser - 12/09/2010 11:54 AM CST Phone Message Document Contains Addenda Addendum by KIT HATHAWAY MD on 09 December 2010 11:57:51 KILN HAND From: KIT HATHAWAY MD To: JESSICA BULLARD; Sent: 12/09/2010 11:57:51 KILN HAND Subject: RE: Phone Message The patients urine LCR on 12/06/10 is negative. From: JESSICA BULLARD To: KTI HATHAWAY; Sent: 12/09/2010 11:54:18 KILN HAND Subject: Phone Message Caller is: ( x) [...] Other ( ) Call back telephone number ([phone] ) Call back cell phone number ( ) Source: [facility] [employer] Document Id: [id number] Bunny - Kit Hathaway M.D. - 12/09/2010 11:14 AM CST Return to Work Status Return to Work Status Entered On: 12/09/2010 11:17 KILN HAND Performed On: 12/09/2010 11:14 KILN HAND by KIT HATHAWAY MD Return to Work Status Date/Time of Injury: 12/09/2010 11:14 KILN HAND Work Injury: No Work Status: Other: Work restrictions recommended for rest of . Return to Work Start Date: 12/09/2010 KILN HAND Restricted Work Start Date: 12/09/2010 KILN HAND Restricted Work Stop Date: 03/04/2011 CDT Follow Up Appointment Needed: Yes Follow Up Appointment Date: 12/20/2010 KILN HAND Work Status Comment: The patient is with due date of 03/04/2011. She is having complicationsin her . She should not work more than 5 hours per day or 30 hours per week for the remainder of her . Follow Up Physician Name: KIT Lund MD - 12/09/2010 11:14 KILN HAND Source: [facility] [employer] Document Id: [id number] KILN HAND!12 HAND Bunny - Aidan Diaz M.D. - 12/06/2010 3:07 PM CST Ambulatory Patient Summary [address] [address] Visit Information Name: NANCY CAMPBELL Current Date: 12/06/2010 15:07:03 Primary Care Provider: AIDAN DIAZ MD [phone] Your Medications Here is a list of [...] No Appointments found Your Goals/Additional instructions: Source: [facility] GongpingjiaCHART Document Id: [id number] Electronically signed by Conversion, [facility] Configuration Management Advisor [id number] at 04/08/2017 11:45 AM CDT Miscellaneous - Aidan Diaz M.D. - 12/06/2010 3:07 PM CST [place] [address] Visit Information Name: NANCY CAMPBELL Current Date: 12/06/2010 15:07:02 Primary Care Provider: AIDAN DIAZ MD [phone] NANCY CAMPBELL has been given the following [...] to the patient and/or family, guardian/caregiver. Source: [facility] GongpingjiaCHART Document Id: [id number] Electronically signed by Conversion, [facility] Configuration Management Advisor [id number] at 04/08/2017 11:45 AM CDT Miscellaneous - Cecil Saleh LRodrigoPRodrigoN. - 12/06/2010 2:54 PM CST Adult Handbag Stitcher Intake/History Adult Handbag Stitcher Intake/History Entered On: 12/06/2010 14:55 KILN HAND Performed On: 12/06/2010 14:54 KILN HAND by CECIL SALEH LPN Intake Chief Complaint: OB visit LMP Date: 05/01/2010 Systolic Blood Pressure: 94mmHg Diastolic Blood Pressure: 52mmHg NIBP Mean: 66mmHg BP Location: Left upper extremity Actual Weight: 112.200kg(Converted to: 247lb 6oz) Dosing Weight Clinic: 112.20kg CECIL SALEH LPN - 12/06/2010 14:54 KILN HAND Subjective Pain Symptoms: No CECIL SALEH LPN - 12/06/2010 14:54 KILN HAND Dependent Habits Tobacco Use/Currently Using: No CECIL SALEH LPN - 12/06/2010 14:54 KILN HAND Caffeine Use Grid Caffeine Use: Current Type: Soft drinks Frequency: Daily CECIL SALEH LPN - 12/06/2010 14:54 KILN HAND Allergies Allergies (Active) NKA Estimated Onset Date: Unspecified ; Created By: CECIL SALEH LPN; Reaction Status: Active ; Category: Drug ; Substance: NKA ; Type: Allergy ; Updated By: CECIL SALEH LPN; Reviewed Date: 09/15/2010 10:22 KILN HAND Source: [employer] Document Id: [id number] KILN HAND!19 HAND documented in this encounter Plan of Treatment Upcoming Encounters Date Type Specialty Care Team Description 10/19/2022 Procedure visit Neurology Marina Winter M.D., M.P.H. [address] [place] [phone] (Wo rk) Scheduled Procedures Name Priority Associated Diagnoses Date/Time LIFT THIGH Excessive And Redundant Skin And Subcutaneous Tissue documented as of this encounter Visit Diagnoses Not on filedocumented in this encounter
--- OUTSIDE RECORDS SUMMARY | 2022-09-05 06:16 | XMS_ITS | Encounter Summary ---
:1985 Author Organization [facility] Address [address] [place] [address] Care Team Providers Name Role Phone Unavailable Primary Care Provider Unavailable Encounter Details Date Type Department Care Team Description 05/23/2011 Hospital Encounter HX [facility] Steve Dupont M.D. [address] [place] [address] (Wo rk) Social History Tobacco Use Types [...] How often do you attend gnosticist or pentecostalism Never 07/04/2019 services? 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 - 05/23/2011 12:00 AM CDT [id number] CHIEF COMPLAINT/REASON FOR VISIT Nancy comes in [...] DIAZ MD On: 05/24/2011 09:44 AM Source: [facility] MHSDOLBEYNONRADSYS Document Id: [id number] documented in this encounter Procedure Notes Cecil Saleh L.P.NRodrigo - 05/23/2011 11:42 AM CDT Depo-Provera Administration Depo-Provera Administration Entered On: 05/23/2011 11:45 CDT Performed On: 05/23/2011 11:42 CDT by CECIL SALEH LPN Depo-Provera Administration Dosing Weight: 103.500kg Pap within last 12 months: Yes Last Depo-Provera Given: 02/27/2011 CDT Return appointment: 08/14/2011 CDT Needs test: No Depo-Provera Administration Comments: lot [id number] exp CECIL SALEH LPN - 05/23/2011 11:42 CDT Source: [facility] POWERCHART Document Id: [id number] CDT!8 Cecil Saleh L.P.N. - 05/23/2011 11:27 AM CDT Hemoglobin POC Hemoglobin POC Entered On: 05/23/2011 11:36 CDT Performed On: 05/23/2011 11:27 CDT by CECIL SALEH LPN Hemoglobin POC Hemoglobin POC Result: 13.7mg/dL Site: Finger, Right CECIL SALEH LPN - 05/23/2011 11:27 CDT Source: [employer] Document Id: [id number] CDT!4 documented in this encounter Miscellaneous Notes Miscellaneous - Cecil Saleh L.PCiera - 05/23/2011 11:46 AM CDT Adult Glass Blowing Lathe Operator Intake/History Adult Glass Blowing Lathe Operator Intake/History Entered On: 05/23/2011 11:46 CDT Performed [...] LPN; Reviewed Date: 02/28/2011 15:58 CDT Source: [employer] Document Id: [id number] CDT!17 Miscellaneous - Aidan Diaz M.D. - 05/23/2011 11:25 AM CDT Ambulatory Patient Summary [address] [address] Visit Information Name: NANCY CAMPBELL Current Date: [...] Appointments found Your Goals/Additional instructions: Source: [facility] POWERCHART Document Id: [id number] Electronically signed by Maria R [facility] Psych Specialist [id number] at 04/08/2017 3:59 PM CDT Miscellaneous - Aidan Diaz M.D. - 05/23/2011 11:25 AM CDT [place] [address] Visit Information Name: NANCY CAMPBELL Current Date: [...] to the patient and/or family, guardian/caregiver. Source: [facility] POWERCHART Document Id: [id number] Electronically signed by Maria R, [facility] Psych Specialist [id number] at 04/08/2017 3:59 PM CDT documented in this encounter Plan of Treatment Upcoming Encounters Date Type Specialty Care Team Description 10/19/2022 Procedure visit Neurology Marina Winter M.D., M.P.H. [address] [phone] (Wo rk) Scheduled Procedures Name Priority Associated Diagnoses Date/Time LIFT THIGH Excessive And Redundant Skin And Subcutaneous Tissue documented as of this encounter Visit Diagnoses Not on filedocumented in this encounter Additional Health Concerns Assessment Noted Time PHQ-9 Depression Total Score: 13 02/27/2011 2:40 PM CD T documented as of this encounter
--- OUTSIDE RECORDS SUMMARY | 2022-09-05 06:16 | XMS_ITS | Encounter Summary ---
:1985 Author Organization [facility] Address [address] [place] [address] Care Team Providers Name Role Phone Unavailable Primary Care Provider Unavailable Encounter Details Date Type Department Care Team Description 02/07/2011 Hospital Encounter HX [facility] Steve Dupont M.D. [address] [place] [address] (Wo rk) Social History Tobacco Use Types [...] How often do you attend pentecostalism or judaism Never 07/04/2019 services? 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 - 02/07/2011 12:00 AM CDT [id number] IMPRESSION/REPORT/PLAN We got a urine on her [...] AIDAN DIAZ MD On: 02/08/2011 03:18 Source: [facility] MHSDOLBEYNONRADSYS Document Id: [id number] documented in this encounter Procedure Notes Cecil Saleh L.PCiera - 02/07/2011 2:24 PM CDT Urine Dipstick Urine Dipstick Entered On: 02/07/2011 14:24 CDT Performed On: 02/07/2011 14:24 CDT by CECIL SALEH LPN Urine Dipstick UA Color POC: [place] UA Appear POC: Clear UA Protein POC: Trace UA Glucose POC: Negative CECIL SALEH LPN - 02/07/2011 14:24 CDT Source: [employer] Document Id: [id number] CDT!6 documented in this encounter Nursing Notes Cecil Saleh L.PCiera - 02/07/2011 3:30 PM CDT pt is scheduled for repeat on 02-28-2011. Arrival time of 9:30 for 11:30 a.m. case. FPW completed. Pt given instructions. Electronically Signed By: CECIL SALEH LPN On: 02/07/2011 03:32 Source: [facility] POWERCHART Document Id: [id number] documented in this encounter Miscellaneous Notes Miscellaneous - Aidan Diaz M.D. - 02/07/2011 2:41 PM CDT Ambulatory Patient Summary [address] [address] Visit Information Name: NANCY CAMPBELL Current Date: [...] No Appointments found Your Goals/Additional instructions: Source: [facility] [employer] Document Id: [id number] Electronically signed by Conversion, [facility] Jet Dyeing Machine Operator [id number] at 04/08/2017 11:24 AM CDT Miscellaneous - Aidan Diaz M.D. - 02/07/2011 2:41 PM CDT Ambulatory [place] [address] Visit Information Name: NANCY CAMPBELL Current Date: [...] to the patient and/or family, guardian/caregiver. Source: [facility] [employer]CHART Document Id: [id number] Electronically signed by Conversion, [facility] Jet Dyeing Machine Operator [id number] at 04/08/2017 11:24 AM CDT Miscellaneous - Cecil Saleh L.PRodrigoNRodrigo - 02/07/2011 2:11 PM CDT Adult Signs Cleaner Intake/History Adult Signs Cleaner Intake/History Entered On: 02/07/2011 14:15 CDT Performed [...] CECIL SALEH LPN; Reviewed Date: 09/15/2010 10:22 GLASS FORMING ENGINEER Source: [facility] POWERCHART Document Id: [id number] CDT!19 documented in this encounter Plan of Treatment Upcoming Encounters Date Type Specialty Care Team Description 10/19/2022 Procedure visit Neurology Marina Winter M.D., M.P.H. [address] [phone] (Wo rk) Scheduled Procedures Name Priority Associated Diagnoses Date/Time LIFT THIGH Excessive And Redundant Skin And Subcutaneous Tissue documented as of this encounter Visit Diagnoses Not on filedocumented in this encounter
--- OUTSIDE RECORDS SUMMARY | 2022-09-05 06:16 | XMS_ITS | Encounter Summary ---
:1985 Author Organization [facility] Address [address] [place] [address] Care Team Providers Name Role Phone Unavailable Primary Care Provider Unavailable Encounter Details Date Type Department Care Team Description 09/27/2011 Hospital Encounter HX [facility] FAMILYPRA Grandalfred, Lizandro Olguin, P.ARodrigo-Nadya [address] [place], [place] [phone] (Wo rk) Social History Tobacco Use Types [...] How often do you attend quaker or mormon Never 07/04/2019 services? 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 - 09/27/2011 12:00 AM CST [id number] CHIEF COMPLAINT / REASON FOR VISIT Vaginitis, [...] LEXII MINOR On: 10/03/2011 08:08 AM Source: [facility] MHSDOLBEYNONRADSYS Document Id: [id number] SALES SYSTEMS ENGINEER documented in this encounter Miscellaneous Notes Miscellaneous - Lexii Minor P.A.-C., P.A. - 10/02/2011 4:47 PM PRE SALES SYSTEMS ENGINEER Results Notification Document Contains Addenda Addendum by TOÑO FRAGA on 02 October 2011 16:52:21 PRE SALES SYSTEMS ENGINEER patient notified. From: LEXII MINOR To: TOÑO FRAGA Sent: 10/02/2011 16:47:39 PRE SALES SYSTEMS ENGINEER ! Show up: 10/02/2011 22:47:39 [facility] Subject: Results Notification Actions: Notify patient of results Due Date/Time: 10/02/2011 17:47:00 PRE SALES SYSTEMS ENGINEER Source: [facility] [employer]comCHART Document Id: [id number] Electronically signed by Conversion, [facility] Newspaper Reporter [id number] at 04/08/2017 1:35 PM CDT Miscellaneous - Lexii Minor, P.A.-C., P.A. - 09/27/2011 1:16 PM PRE SALES SYSTEMS ENGINEER Results Notification Document Contains Addenda Addendum by TOÑO FRAGA on 27 September 2011 13:50:01 PRE SALES SYSTEMS ENGINEER Patient notified. From: LEXII MINOR To: TOÑO FRAGA Sent: 09/27/2011 13:16:55 PRE SALES SYSTEMS ENGINEER ! Show up: 09/27/2011 19:16:55 [facility] Subject: Results Notification Actions: Notify patient of results Due Date/Time: 09/27/2011 14:16:00 PRE SALES SYSTEMS ENGINEER Source: [facility] [email or web address]comCHART Document Id: [id number] Electronically signed by Conversion, [facility] Newspaper Reporter [id number] at 04/08/2017 1:35 PM CDT Miscellaneous - Conversion, Historical Provider Ser - 09/27/2011 10:33 AM PRE SALES SYSTEMS ENGINEER Adult Advertising Coordinator Intake/History Adult Advertising Coordinator Intake/History Entered On: 09/27/2011 10:35 PRE SALES SYSTEMS ENGINEER Performed On: 09/27/2011 10:33 PRE SALES SYSTEMS ENGINEER by TOÑO FRAGA Intake Chief Complaint : [...] : 112.60kg TOÑO FRAGA - 09/27/2011 10:33 PRE SALES SYSTEMS ENGINEER General Info Information Given By : Patient Preferred Communication Mode : Verbal Languages : Kyrgyz TOÑO FRAGA - 09/27/2011 10:33 PRE SALES SYSTEMS ENGINEER Subjective Pain Symptoms : No SAVITA FRAGAA 09/27/2011 10:33 PRE SALES SYSTEMS ENGINEER Dependent Habits Tobacco Use/Currently Using : No Smoking Status : Never smoker TOÑO FRAGA 09/27/2011 10:33 PRE SALES SYSTEMS ENGINEER Tobacco Use Grid Other Tobacco Frequency : non SAVITA FRAGAA 09/27/2011 10:33 PRE SALES SYSTEMS ENGINEER Caffeine Use Grid Caffeine Use : Current Type : Soft drinks Frequency : Daily TOÑO FRAGA 09/27/2011 10:33 PRE SALES SYSTEMS ENGINEER Allergy Allergies (Active) NKA Estimated Onset Date: Unspecified ; Created By: CECIL ALEGRIA LPN; Reaction Status: Active ; Category: Drug ; Substance: NKA ; Type: Allergy ; Updated By: CECIL ALEGRIA LPN; Reviewed Date: 09/27/2011 10:33 PRE SALES SYSTEMS ENGINEER Source: [facility] POWERCHART Document Id: [id number] PRE SALES SYSTEMS ENGINEER!30 documented in this encounter Plan of Treatment Upcoming Encounters Date Type Specialty Care Team Description 10/19/2022 Procedure visit Neurology Marina Winter M.D., M.P.H. [address] [place], [place] [phone] (Wo rk) Scheduled Procedures Name Priority Associated Diagnoses Date/Time LIFT THIGH Excessive And Redundant Skin And Subcutaneous Tissue documented as of this encounter Visit Diagnoses Not on filedocumented in this encounter Additional Health Concerns Assessment Noted Time PHQ-9 Depression Total Score: 11 08/15/2011 9:20 AM CD T documented as of this encounter
--- OUTSIDE RECORDS SUMMARY | 2022-09-05 06:16 | XMS_ITS | Encounter Summary ---
:1985 Author Organization [facility] Address [address] [place] [address] Care Team Providers Name Role Phone Unavailable Primary Care Provider Unavailable Encounter Details Date Type Department Care Team Description 10/05/2010 Hospital Encounter HX [facility] Steve Dupont M.D. [address] [place] [address] (Wo rk) Social History Tobacco Use Types [...] How often do you attend gnosticist or zoroastrian Never 07/04/2019 services? 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 - 10/05/2010 12:00 AM CST [id number] IMPRESSION/REPORT/PLAN Stable Plan: Follow up in 1 [...] DIAZ MD On 10/11/2010 09:31 AM Source: [facility] MHSDOLBEYNONRADSYS Document Id: [id number] ROOM PLASTIC CARD GRADER documented in this encounter Miscellaneous Notes Miscellaneous - Aidan Diaz M.D. - 10/05/2010 1:43 PM CST Ambulatory [place] [address] Visit Information Name: NANCY CAMPBELL Current Date: 10/05/2010 13:43:05 Primary Care Provider: AIDAN DIAZ MD [id number] Your Medications Here is a list of [...] Time Location Reason Provider 10/11/2010 10:30 [facility] BICYCLE MECHANIC diabetic education per Dr. Diaz/seeing him after Diana Morris CNM 10/11/2010 11:00 [facility] BICYCLE MECHANIC ob ultrasound. I also wish her to see marisa quiles that day to get set upwith a glucometer Aidan Diaz MD Your Goals/Additional instructions: Source: [facility] POWERCHART Document Id: [id number] Electronically signed by Maria R, [facility] Awning Erector [id number] at 04/09/2017 5:54 AM CDT Miscellaneous - Aidan Diaz M.D. - 10/05/2010 1:43 PM CST [place] [address] Visit Information Name: NANCY CAMPBELL Current Date: 10/05/2010 13:43:04 Primary Care Provider: AIDAN DIAZ MD [id number] CAMPBELLNANCY has been given the following list of [...] patient and/or family, guardian/caregiver. Source: [facility] POWERCHART Document Id: [id number] Miscellaneous - Cecil Saleh, L.P.N. - 10/05/2010 1:22 PM CST Adult File Keeper Intake/History Adult File Keeper Intake/History Entered On: 10/05/2010 13:23 CARDROOM PLASTIC CARD GRADER Performed On: 10/05/2010 13:22 CARDROOM PLASTIC CARD GRADER by CECIL SALEH LPN Intake Chief Complaint: OB visit LMP Date: 05/01/2010 Systolic Blood Pressure: 120mmHg Diastolic Blood Pressure: 66mmHg NIBP Mean: 84mmHg BP Location: Right upper extremity Actual Weight: 114.600kg(Converted to: 252lb 10oz) Dosing Weight Clinic: 114.60kg CECIL SALEH LPN - 10/05/2010 13:22 CARDROOM PLASTIC CARD GRADER Subjective Pain Symptoms: No CECIL SALEH LPN - 10/05/2010 13:22 CARDROOM PLASTIC CARD GRADER Dependent Habits Tobacco Use/Currently Using: No CECIL SALEH LPN - 10/05/2010 13:22 CARDROOM PLASTIC CARD GRADER Caffeine Use Grid Caffeine Use: Current Type: Soft drinks Frequency: Daily CECIL SALEH LPN - 10/05/2010 13:22 CARDROOM PLASTIC CARD GRADER Allergies Allergies (Active) NKA Estimated Onset Date: Unspecified ; Created By: CECIL SALEH LPN; Reaction Status: Active ; Category: Drug ; Substance: NKA ; Type: Allergy ; Updated By: CECIL SALEH LPN; Reviewed Date: 09/15/2010 10:22 CARDROOM PLASTIC CARD GRADER Source: [facility] [employer] Document Id: [id number] CARDROOM PLASTIC CARD GRADER!19 ROOM PLASTIC CARD GRADER documented in this encounter Plan of Treatment Upcoming Encounters Date Type Specialty Care Team Description 10/19/2022 Procedure visit Neurology Marina Winter M.D., M.P.H. [address] [phone] (Wo rk) Scheduled Procedures Name Priority Associated Diagnoses Date/Time LIFT THIGH Excessive And Redundant Skin And Subcutaneous Tissue documented as of this encounter Visit Diagnoses Not on filedocumented in this encounter
--- OUTSIDE RECORDS SUMMARY | 2022-09-05 06:17 | XMS_ITS | Encounter Summary ---
:1985 Author Organization [facility] Address [address] [place] [address] Care Team Providers Name Role Phone Unavailable Primary Care Provider Unavailable Encounter Details Date Type Department Care Team Description 10/19/2004 Hospital Encounter HX [facility] Jose Ortega Jr., M.D. [address], [place] [phone] (Wo rk) Social History [...] How often do you attend quaker or orthodoxy Never 07/04/2019 services? 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 [address] [place] [phone] (Wo rk) Scheduled Procedures Name Priority Associated Diagnoses Date/Time LIFT THIGH Excessive And Redundant Skin And Subcutaneous Tissue documented as of this encounter Visit Diagnoses Not on filedocumented in this encounter
--- OUTSIDE RECORDS SUMMARY | 2022-09-05 06:17 | XMS_ITS | Encounter Summary ---
:1985 Author Organization [facility] Address [address] [place] [address] Care Team Providers Name Role Phone Unavailable Primary Care Provider Unavailable Encounter Details Date Type Department Care Team Description 08/03/2010 Hospital Encounter HX [facility] Steve Dupont M.D. [address] [place] [address] (Wo rk) Social History Tobacco Use Types [...] often do you attend latter day or muslim Never 07/04/2019 services? 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 - 08/03/2010 12:00 AM CDT [id number] IMPRESSION/REPORT/PLAN H&P is done here today. She obviously will follow up with a repeat at 39 weeks gestation. We will start following her blood sugars in early to mid 2nd trimester. She is on vitamins. We will see her back in 4 weeks. CHIEF COMPLAINT/REASON FOR VISIT Nancy comes in today for her first OB visit. HISTORY OF PRESENT ILLNESS Nacny is a 25-year-old white female 3, para [...] DIAZ MD On 08/04/2010 03:33 PM Source: [facility] MHSDOLBEYNONRADSYS Document Id: [id number] documented in this encounter Procedure Notes Conversion, [...] HEART LPN - 08/03/2010 9:31 CDT Source: [facility] POWERCHART Document Id: [id number] CDT!14 documented in this encounter Miscellaneous Notes Miscellaneous - Aidan Diaz M.D. - 08/03/2010 9:38 AM CDT Ambulatory Patient Summary [address] [address] Visit Information Name: NANCY CAMPBELL Current Date: 08/03/2010 09:38:35 Primary Care Provider: AIDAN DIAZ MD [id number] Your Medications Here is a list of [...] No Appointments found Your Goals/Additional instructions: Source: [facility] POWERCHART Document Id: [id number] Miscellaneous - Aidan Diaz M.D. - 08/03/2010 9:38 AM CDT Ambulatory Depart Summary [address] [address] Visit Information Name: NANCY CAMPBELL Current Date: 08/03/2010 09:38:35 Primary Care Provider: AIDAN DIAZ MD [id number] NANCY CAMPBELL has been given the following [...] to the patient and/or family, guardian/caregiver. Source: [facility] POWERCHART Document Id: [id number] Miscellaneous - Cecil Saleh, L.P.N. - 08/03/2010 9:11 AM CDT Adult Aboriginal Community Council Member Intake/History Adult Aboriginal Community Council Member Intake/History Entered On: 08/03/2010 9:15 CDT Performed [...] LPN; Reviewed Date: 08/03/2010 9:10 CDT Source: [facility] POWERCHART Document Id: [id number] CDT!20 documented in this encounter Plan of Treatment Upcoming Encounters Date Type Specialty Care Team Description 10/19/2022 Procedure visit Neurology Marina Winter M.D., M.P.H. [address] [phone] (Wo rk) Scheduled Procedures Name Priority [...] Thin Prep, Pap (08/03/2010 10:38 AM CDT) [facility] gist Method Time Signature Interpretation Performed POWERCHART Comment: Test Performed by: [facility] Dpt of Lab Med and Pathology [address] [place] [address] Personnel Clerk: Federico anne III, M.D. Specimen Anatomical Collection Method Collection Time Receive d Time (Source) Location / / Volume Laterality Cervix/Endocervi 08/03/2010 10:38 010 6:14 x AM CDT PM CDT Historical Provider LAB HISTORICAL ORDERS Performing Organization Address City/State/ZIP Code Phon e Number POWERCHART ThinPrep Screen HPV Reflex (08/03/2010 10:38 AM CDT) [facility] Time Signature Interpretation [id number] [facility] POWERCHART [facility] Comment: A. ??ThinPrep Pap Test Screen (Cervical/ Endocervical HPV Reflex): Satisfactory for evaluation. Partially obscuring bacteria. Partially obscuring inflammation. Negative for intraepithelial lesion or m alignancy. Reactive/Reparative squamous cells prese nt. Reactive glandular cells present. HXThPrep Scrn [facility] See Comment [facility] RCHART Comment: RESULT: Carolina JoelRodrigo Zapata, CT ( ASCP) HXThPrep Scrn [facility] See Comment [facility] RCHART Comment: RESULT: 08/09/2010 13:58 Interpreted by: Cinthia Crowley M.D. Report electronically signed by Cinthia townsend M.D. Transcribed by: [email or web address] ??08/09/2010 10:30: 49 HX Spec [facility] See Comment POWERCHART Comment: A. ??ThinPrep Pap Test Screen (Cervical/ Endocervical HPV Reflex): Received cloudy specimen in ThinPrep via l. Test Performed by: [facility] Dpt of Lab Med and Pathology [address] [place] [address] Personnel Clerk: Federico anne III, M.D. Specimen (Source) Anatomical Collection Method Collection Time Re ceived Time Location / / Volume Laterality Cervix/Endocervix 08/03/2010 10:38 AM CDT Aidan Diaz M.D. LAB PAP PATHDX ORDERABLES Performing Organization Address City/State/ZIP Code Phon e Number POWERCHART Antibody Screen (08/03/2010 9:55 AM CDT) P athologist Signature Antibody Negative POWERCHART Screen Comment: -- REFERENCE VALUE -- Negative If positive, antibody identification will be performed. Specimen (Source) Anatomical Collection Method Collection Time Re ceived Time Location / / Volume Laterality 08/03/2010 9:55 AM CDT Aidan Diza M.D. LAB BLOOD BANK TEST ORDERABL ES Performing Organization Address City/State/ZIP Code Phon e Number POWERCHART Grouping and -[employer] FLIP, see #[id number] (08/03/2010 9:55 AM CDT) [...]
--- OUTSIDE RECORDS SUMMARY | 2022-09-05 06:17 | XMS_ITS | Encounter Summary ---
:1985 Author Organization [facility] Address [address] [place] [address] Care Team Providers Name Role Phone Unavailable Primary Care Provider Unavailable Encounter Details Date Type Department Care Team Description 04/28/2005 Hospital Encounter HX [facility] CVC-Pernell Ortega Jr., M.D. 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 [address] [phone] (Wo rk) Scheduled Procedures Name Priority Associated Diagnoses Date/Time LIFT THIGH Excessive And Redundant Skin And Subcutaneous Tissue documented as of this encounter Visit Diagnoses Not on filedocumented in this encounter
--- OUTSIDE RECORDS SUMMARY | 2022-09-05 06:17 | XMS_ITS | Encounter Summary ---
:1985 Author Organization [facility] Address [address] [place] [address] Care Team Providers Name Role Phone Unavailable Primary Care Provider Unavailable Encounter Details Date Type Department Care Team Description 08/16/2010 Hospital Encounter HX NO MAPPING Jerald Adams M.D. [address] [place], [place] [address] (Wo rk) Social History [...] How often do you attend jewish or scientology Never 07/04/2019 services? 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 [address], [place] [phone] (Wo rk) Scheduled Procedures Name Priority Associated Diagnoses Date/Time LIFT THIGH Excessive And Redundant Skin And Subcutaneous Tissue documented as of this encounter Visit Diagnoses Not on filedocumented in this encounter
--- OUTSIDE RECORDS SUMMARY | 2022-09-05 06:17 | XMS_ITS | Encounter Summary ---
:[address] [facility] Address [address] [place] [address] Care Team Providers Name Role Phone Unavailable Primary Care Provider Unavailable Encounter Details Date Type Department Care Team Description 09/10/2003 Hospital Encounter [facility]X [facility] Jose Ortega Jr., M.D. [address], [place] [phone] (Wo rk) Social History [...] How often do you attend latter-day or synagogue Never 07/04/2019 services? 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 [address] [place] [phone] (Wo rk) Scheduled Procedures Name Priority Associated Diagnoses Date/Time LIFT THIGH Excessive And Redundant Skin And Subcutaneous Tissue documented as of this encounter Visit Diagnoses Not on filedocumented in this encounter
--- OUTSIDE RECORDS SUMMARY | 2022-09-05 06:17 | XMS_ITS | Encounter Summary ---
:1985 Author Organization [facility] Address [address] [place] [address] Care Team Providers Name Role Phone Unavailable Primary Care Provider Unavailable Encounter Details Date Type Department Care Team Description 08/09/2005 Hospital Encounter HX [facility] CVC-Pernell Ortega Jr., M.D. [address] [place] [phone] (Wo rk) Social History Tobacco [...] How often do you attend sabianist or shinto Never 07/04/2019 services? 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 [address] [phone] (Wo rk) Scheduled Procedures Name Priority Associated Diagnoses Date/Time LIFT THIGH Excessive And Redundant Skin And Subcutaneous Tissue documented as of this encounter Visit Diagnoses Not on filedocumented in this encounter
--- OUTSIDE RECORDS SUMMARY | 2022-09-05 06:17 | XMS_ITS | Encounter Summary ---
:1985 Author Organization [facility] Address [address] [place] [address] Care Team Providers Name Role Phone Unavailable Primary Care Provider Unavailable Encounter Details Date Type Department Care Team Description 07/27/2003 Hospital Encounter HX [facility] Jose Ortega Jr., M.D. [address], [place] [phone] (Wo rk) Social History [...] How often do you attend jain or episcopalian Never 07/04/2019 services? 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 [address] [place] [phone] (Wo rk) Scheduled Procedures Name Priority Associated Diagnoses Date/Time LIFT THIGH Excessive And Redundant Skin And Subcutaneous Tissue documented as of this encounter Visit Diagnoses Not on filedocumented in this encounter
--- OUTSIDE RECORDS SUMMARY | 2022-09-05 06:17 | XMS_ITS | Encounter Summary ---
:[address] [facility] Address [address] [place] [address] Care Team Providers Name Role Phone Unavailable Primary Care Provider Unavailable Encounter Details Date Type Department Care Team Description 08/15/2010 Hospital Encounter HX NO MAPPING Luciano Francois M.D. [address] [place], [place] [phone] (Wo rk) Social History [...] How often do you attend pentecostalism or yazidism Never 07/04/2019 services? 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 [address] [place] [phone] (Wo rk) Scheduled Procedures Name Priority Associated Diagnoses Date/Time LIFT THIGH Excessive And Redundant Skin And Subcutaneous Tissue documented as of this encounter Visit Diagnoses Not on filedocumented in this encounter
--- OUTSIDE RECORDS SUMMARY | 2022-09-05 06:17 | XMS_ITS | Encounter Summary ---
:1985 Author Organization [facility] Address [address] [place] [address] Care Team Providers Name Role Phone Unavailable Primary Care Provider Unavailable Encounter Details Date Type Department Care Team Description 02/24/2007 Hospital Encounter HX [facility] ED ProviderBekah Social History Tobacco Use Types Packs/Day Years [...] often do you attend roman catholic or mormonism Never 07/04/2019 services? 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 [address] [phone] (Wo rk) Scheduled Procedures Name Priority Associated Diagnoses Date/Time LIFT THIGH Excessive And Redundant Skin And Subcutaneous Tissue documented as of this encounter Visit Diagnoses Not on filedocumented in this encounter
--- OUTSIDE RECORDS SUMMARY | 2022-09-05 06:17 | XMS_ITS | Encounter Summary ---
:1985 Author Organization [facility] Address [address] [place] [address] Care Team Providers Name Role Phone Unavailable Primary Care Provider Unavailable Encounter Details Date Type Department Care Team Description 08/15/2010 Hospital Encounter HX NO MAPPING Luciano Francois M.D. 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 [address] [place] [phone] (Wo rk) Scheduled Procedures Name Priority Associated Diagnoses Date/Time LIFT THIGH Excessive And Redundant Skin And Subcutaneous Tissue documented as of this encounter Visit Diagnoses Not on filedocumented in this encounter
== END 2022-09-05 06:01 | disposition home or self-care (01) ==
PROVIDERS: PCP Family Medicine; Visit Provider Family Medicine
DX: R30.0 Dysuria (principal); R35.0 Frequency of micturition
CPT/HCPCS: 81003; 81015; 87086; 87186

== ENCOUNTER 2022-11-13 12:13 | Outpatient (CLI) | payer BC, SELFPAY ==
[2022-11-13 15:23] LABS: Clue Cells >20% Clue Cells Seen (None Seen); Trichomonas No Trichomonas Seen (None Seen); Yeast No Yeast Seen (None Seen)
[2022-11-13 18:50] LABS: Chlamydia DNA Amplified* NOT DETECTED (No Detected); GC DNA Amplified* NOT DETECTED (No Detected)
[2022-11-13 23:31] LABS: Vitamin D 25 Hydroxy* 26 ng/mL (30-80)
[2022-11-13 23:44] LABS: Thyroid Stimulating Hormone* 0.967 uIU/mL (0.270-4.20)
[2022-11-13 23:49] LABS: Ferritin* 46.9 ng/mL (6.24-137.0)
== END 2022-11-13 12:14 | disposition home or self-care (01) ==
PROVIDERS: PCP Family Medicine; Visit Provider Family Medicine
DX: R58 Hemorrhage, not elsewhere classified (principal); R53.83 Other fatigue; F41.9 Anxiety disorder, unspecified; F33.9 Major depressive disorder, recurrent, unspecified
CPT/HCPCS: 82306; 82728; 84443; 87210; 87491; 87591

== ENCOUNTER 2022-12-04 16:02 | Outpatient (CLI) | payer BC, SELFPAY ==
[2022-12-04 23:41] LABS: Chlamydia DNA Amplified* NOT DETECTED (No Detected); GC DNA Amplified* NOT DETECTED (No Detected)
== END 2022-12-04 16:03 | disposition home or self-care (01) ==
PROVIDERS: PCP Family Medicine; Visit Provider Family Medicine
DX: R39.9 Unspecified symptoms and signs involving the genitourinary system (principal); Z72.51 High risk heterosexual behavior; Z11.3 Encounter for screening for infections with a predominantly sexual mode of transmission
CPT/HCPCS: 87086; 87186; 87491; 87591

== ENCOUNTER 2023-05-28 15:33 | Outpatient (CLI) | payer BC, SELFPAY ==
[2023-05-28 18:10] LABS: Chloride* 106 mmol/L (96-114); Potassium* 3.7 mmol/L (3.6-5.1); Sodium* 138 mmol/L (135-149)
[2023-05-28 18:13] LABS: Blood Urea Nitrogen* 13 mg/dL (5-24); Carbon Dioxide* 25 mmol/L (20-32); Creatinine* 0.7 mg/dL (0.5-1.5); Estimated Glomerular Filt Rate 114 ml/min; Glucose* 88 mg/dL (60-115)
[2023-05-28 18:15] LABS: Clue Cells No Clue Cells Seen (None Seen); Trichomonas No Trichomonas Seen (None Seen); Yeast No Yeast Seen (None Seen)
[2023-05-28 19:18] LABS: Chlamydia DNA Amplified* NOT DETECTED (No Detected); GC DNA Amplified* NOT DETECTED (No Detected)
== END 2023-05-28 15:34 | disposition home or self-care (01) ==
PROVIDERS: PCP Family Medicine; Visit Provider Family Medicine
DX: Z11.3 Encounter for screening for infections with a predominantly sexual mode of transmission (principal); Z20.2 Contact with and (suspected) exposure to infections with a predominantly sexual mode of transmission; R60.9 Edema, unspecified
CPT/HCPCS: 80048; 86592; 86703; 87210; 87491; 87591

== ENCOUNTER 2024-08-02 19:57 | Emergency (ER) | payer BC, SELFPAY ==
[2024-08-02 20:04] VITALS: BP 137/85; PULSE 91; RESP 18; TEMP 36.3; O2SAT 100; BMI 29.5
--- NOTE | 2024-08-02 20:08 | CRLHL7_ITS ---
For Patients: As a result of the Cures Act, medical imaging exams and procedure reports are released immediately into your electronic medical record. You may view this report before your referring provider. If you have questions, please contact your health care provider. Indication: LT LOWER RIB PAIN Technique: Frontal view of the chest and frontal and oblique views of the left ribs Comparison: None Findings/Impression: Nondisplaced left lateral 9th rib fracture. No additional fractures or malalignment. No suspicious osseous lesions. The soft tissues are unremarkable. The cardiomediastinal silhouette and pulmonary vasculature are unremarkable. There is no focal airspace consolidation, pleural effusion, or pneumothorax. Dictated by Ruperto Noland MD @ 08/02/2024 8:40:22 PM (Electronically Signed)
--- OUTSIDE RECORDS SUMMARY | 2024-08-02 20:36 | XMS_ITS | Clinical Summary ---
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 [facility] Allergies No known active allergies Medications Medication Sig Dispensed Refills Start Date End Date Status multivitamin with minerals (CERTAVITE,MYADEC) tablet Take 1 Tablet by mouth daily. Active vitamin B-12 (AKA: CYANOCOBALAMIN) 1000 MCG tablet Take 1,000 mcg by mouth once a week. Sublingual tablet weekly Active calcium citrate-vitamin D (CALCITRATE PLUS D) 315-200 MG-UNIT tablet Take 2 Tablets by mouth two times a day. Active cholecalciferol (VITAMIND3) 2000 units tablet Take 2,000 Units by mouth daily. Active venlafaxine (EFFEXOR) 75 MG tablet Take 75 mg by mouth two times a day. Active Biotin 1000 MCG CHEW Take 1 Tablet by mouth daily. Active ferrous sulfate 325 (65 Fe) MG tablet Take 1 Tablet by mouth daily with breakfast. 01/10/2019 Active PARoxetine (PAXIL) 40 MG tablet Take 40 mg by mouth daily. Active omeprazole (PRILOSEC) 20 MG capsule Take 1 Capsule by mouth daily for 90 days. Take 1 hour before a meal. 90 Capsule 05/05/2019 Active Additional Information Patient not taking.Reported on 05/27/2019 busPIRone (BUSPAR) 5 MG tabletIndications:A bdominal pain, unspecified abdominal location 1 tab twice daily for 7 days and then 2 tabs twice daily 90 Tablet 05/27/2019 Active Family History Medical History Relation Name Comments Obesity Mother Relation Name Status Comments Mother Alive Social History Tobacco Use Types Packs/Day Years Used Date Smoking Tobacco: Never Smokeless Tobacco: Never Alcohol Use Standard Drinks/Week Comments Not Currently 0 (1 standard drink = 0.6 oz pur e alcohol) rare Sex and Gender Information Value Date Recorded Sex Assigned at Not on file Gender Identity Not on file Sexual Orientation Not on file Last Filed Vital Signs Vital Sign Reading Time Taken Comments Blood Pressure 113/67 05/27/2019 8:38 AM CDT Pulse 75 05/27/2019 8:38 AM CDT Temperature 28.9 ??C (84 ??F) 04/09/2019 10:53 AM CDT Respiratory Rate - - Oxygen Saturation - - Inhaled Oxygen Concentration - - Weight 77.4 kg (170 lb 9.6 oz) 05/27/2019 8:38 A M CDT Height 165.1 cm (5' 5) 05/27/2019 8:38 AM CDT Body Mass Index 28.39 05/27/2019 8:38 AM CDT Plan of Treatment Health Maintenance Due Date Last Done Comments Cervical Cancer Screening Due 1985 Hep C Screening (Preventive Services) 1985 HIV Screening (Preventive Services) 2002 Adult Preventive Visit 2004 HepB (1) 2005 COVID-19 Vaccine ( season) 2024 04/08/2021, 03/18/2021 Influenza (#1) 2024 07/17/2017, 07/06, 08/24/2016, Additional history exists DTaP/Tdap/Td (5 - Tdap) 02/10/2028 02/10/20 18, 02/26/2013, 01/17/2009, Additional history exists Zoster/Shingles (1 of 2) 2036 HPV Vaccine Aged Out No longer eligi ble based on patient's age to complete this topic HepA Aged Out No longer eligi ble based on patient's age to complete this topic Hib Aged Out No longer eligi ble based on patient's age to complete this topic IPV (Polio) Aged Out No longer eligi ble based on patient's age to complete this topic MCV4 Aged Out No longer eligi ble based on patient's age to complete this topic Pneumococcal Aged Out No longer eligi ble based on patient's age to complete this topic Care Teams Fiction And Nonfiction Prose Writer Relationship Specialty Start Date End Date Unassigned, Provider [address] [place] [address] PCP - General 08/08/00
--- OUTSIDE RECORDS SUMMARY | 2024-08-02 20:37 | XMS_ITS | Clinical Summary ---
Author Organization [facility] Address [address] [place] [address] Care Team Providers Care Family Preservation Officer Name Role Phone Annemarie Montiel M.D. Primary Care Provider [phone] Source Comments Patient records contain information from all sites at [facility]. For routine questions regarding patient records, call [phone] during business hours, M-F 8:00 AM - 5:00 PM Central Time. Record requests for emergency care only can be directed to [phone] at any time.[facility] Allergies Active Allergy Reactions Criticality Noted Date Comments Animal Dander Hives (Reselect Reaction) 12/16/2019 Cigarette Smoke Hives (Reselect Reaction) 12/16/2019 House Dust Mite Rash 07/08/2008 Sumatriptan Other (see comments) 03/18/2024 Out of body feeling Nsaids (Non-Steroidal Anti-Inflammatory Drug) Other (see comments) 09/04/2021 Gastric sleeve Medications Medication Sig Dispensed Refills Start Date End Date Status multivitamin-Ca -iron-minerals (MULTIPLE VITAMIN, WOMENS) tablet Take 1 tablet by mouth daily. Active baclofen (LIORESAL) 10 mg tablet Take 10 mg by mouth 2 (two) times a day as needed. 2 Active medical cannabis capsule 2 Active cranberry fruit extract (CRANBERRY EXTRACT ORAL) Take 1 capsule by mouth daily. Active pramipexole (MIRAPEX) 0.125 mg tabletIndicatio ns:Restless Leg Syndrome TAKE 1 TABLET (0.125 MG TOTAL) BY MOUTH AT BEDTIME. 2-3 HOURS BEFORE BED OPTIMALLY. 90 tablet 3 4 Active diclofenac sodium (VOLTAREN) 1 % gelIndications: Pain Hand Bilateral Apply 2 g topically 4 (four) times a day. Apply to hands. 100 g 1 4 Active modafiniL (PROVIGIL) 200 mg tabletIndicatio ns:Narcolepsy (HCC) Take 2 tablets (400 mg total) by mouth daily. 180 tablet 1 4 Active buPROPion XL (WELLBUTRIN XL) 150 mg 24 hr tablet Take 1 tablet (150 mg total) by mouth daily. 90 tablet 4 4 Active buPROPion XL (WELLBUTRIN XL) 300 mg 24 hr tablet Take 1 tablet (300 mg total) by mouth daily. 90 tablet 4 4 Active LORazepam (ATIVAN) 1 mg tablet Take 1 tablet (1 mg total) by mouth daily as needed for anxiety. 30 tablet 2 4 Active valACYclovir (VALTREX) 1000 mg tabletIndicatio ns:Herpes Genitalis Take 1 tablet (1,000 mg total) by mouth daily. 90 tablet 3 4 Active cyanocobalamin (VITAMIN B12) 1,000 mcg/mL injectionIndica tions:Surgery Bariatric Status Post Inject 1 mL (1,000 mcg total) under the skin every 30 (thirty) days. One injection per month with 1st dose to occur approximately 30 days after your dose at the nurse clinic 1 mL 4 Active syringe with needle, safety (Easy Touch SheathLock Syrg-Ndl) 3 mL 25 gauge x 5/8 syringeIndicati ons:Surgery Bariatric Status Post For use once monthly as directed to administer B12 injection subcutaneous 1 each 4 Active ubrogepant (Ubrelvy) 100 mg tablet tablet Take 1 tablet (100 mg total) by mouth as needed for migraine. May repeat dose once after at least 2 hours if migraine is unresolved. Do not exceed 200 mg in 24 hours. 10 each 3 4 Active furosemide (Lasix) 20 mg tablet TAKE 1 TABLET BY MOUTH EVERY DAY NEEDED FOR LEG EDEMA 30 tablet 3 4 Active topiramate (Topamax) 100 mg tabletIndicatio ns:Chronic Migraine Without Aura Not Intractable Without Status Migrainosus TAKE 1 TABLET BY MOUTH TWO TIMES A DAY FOR MIGRAINE PREVENTION AND WEIGHT LOSS. INSURANCE LIMITS TO 30 DAYS 60 tablet 3 4 Active nitrofurantoin monohydrate (MACROBID) 100 mg capsule Take 100 mg by mouth 2 (two) times a day. As needed for UTI 3 07/16/20 24 Discontinued(Re order) topiramate (TOPAMAX) 100 mg tabletIndicatio ns:Chronic Migraine Without Aura Not Intractable Without Status Migrainosus Take 1 tablet (100 mg total) by mouth 2 (two) times a day. For migraine prevention and weight loss 60 tablet 3 4 07/09/20 24 Discontinued nitrofurantoin monohydrate (Macrobid) 100 mg capsule Take 1 capsule (100 mg total) by mouth 2 (two) times a day for 7 days. For urinary tract infection 14 capsule 4 07/23/20 24 Active Problems Problem Noted Date Diagnosed Date Narcolepsy 09/26/2023 Surgery Bariatric Status Post 10/16/2018 Hysterectomy Abdominal Status Post 08/09/2017 Anxiety Generalized Disorder 07/07/2014 Major Depressive Disorder, Recurrent, Unspecifie d 02/27/2011 Overview (03/27/2017): Major Depressive Disorder, Recurrent Episode, Unspecified Degree depression, recurrent. Herpes Genitalis 02/20/2011 Overview (10/16/2017): recurrent genital HSV Migraine Headache 08/23/2010 Resolved Problems Problem Noted Date Diagnosed Date Resolved Date Excessive And Redundant Skin And Subcutaneous Tissue 04/11/2022 07/02/2023 Overview (04/11/2022): Added automatically from request for surgery [id number] Panniculitis 11/07/2019 06/13/2023 Overview (11/07/2019): Added automatically from request for surgery [id number] Acquired Absence Of Both Cervix And Uterus 07/26/2017 03/27/2018 Section Delivery 11/17/2016 Diabetes Mellitus Gestational 11/17/2016 03/27/2018 Discrepancy Uterine Size Otoniel e 10/30/2016 03/27/2018 With Personal Hist ory Preeclampsia Previous 10/30/2016 03/27/2018 Normal Not First 10/27/2016 03/27/2018 Tattoo 01/03/2016 03/27/2018 Morbid Obesity Body Mass Ind ex Greater Than Or Equal To 40 Adult 11/06/2014 03/25/2019 Complication Preg Previous C esarean (C) Section Antepartum 04/23/2013 03/27/2018 Depressive Disorder 12/10/2009 03/27/20 18 Endometriosis Of Pelvic Conchita toneum Unspecified 04/20/2007 03/27/2018 Encounters Date Type Department Care Team Description 07/16/2024 Orders Only Department of Family Medicine, [facility], in [place], [place] [address] [place] [phone] Annemarie Montiel M.D. 07/15/2024 1:30 PM CDT - 07/15/2024 11:59 PM CDT Hospital Encounter Department of Laboratory Medicine in [place] [address] [place] [address] Annemarie Montiel M.D. Symptom Urinary Discharge Disposition: Home or Self Care 07/11/2024 E-Visit Department of Family Medicine, [facility], in [place], [place] [address] [place] [phone] Annemarie Montiel M.D. Labs 07/08/2024 Refill Department of Family Medicine, [facility], in [place], [place] [address] [place] [phone] Annemarie Montiel M.D. Med Refill 06/19/2024 Patient Outreach Department of Family Medicine, [facility], in [place], [place] [address] [place] [phone] Fouzia Saldana R.N. Care Coordination ([facility] CC Attempt #2 and Portal) 06/06/2024 10:50 AM CDT - 06/06/2024 11:59 PM CDT Hospital Encounter Department of Laboratory Medicine in [address] [place] [address] Annemarie Montiel M.D. Exposure Sexually Transmitted Disease Discharge Disposition: Home or Self Care 06/06/2024 10:50 AM CDT Hospital Encounter Department of Laboratory Medicine in [address] [phone] Annemarie Montiel M.D. Exposure Sexually Transmitted Disease Discharge Disposition: Home or Self Care 06/05/2024 Nurse Triage Department of [facility], [facility], in [address] [phone] Tammy Wei R.N. STI Screening 06/05/2024 Patient Outreach Department of [facility], in [address] [phone] Fouzia Saldana R.N. Care Coordination ([facility] CC Attempt #1 and Mailed BRIANDA) 06/03/2024 Clinical Communication Pharmacy Prior Auth [phone] Sophia Roberts RX APPROVAL (UBRELVY 100MG TAB) 06/02/[address] [facility], [facility], in [address] [phone] Annemarie Montiel M.D. Med Refill 05/30/2024 Patient Outreach Department of [facility], [facility], in [address] [phone] Fouzia Saldana R.N. Care Coordination ([facility] CC Follow Up) 05/30/2024 Clinical Communication Department of Neurology in [address] [phone] Hipolito Babin M.D. 05/29/2024 1:30 PM CDT Comprehensive Visit Department of Neurology in [place] [address] [place] [address] Hipolito Babin M.D. Chronic Migraine (Primary Dx); Migraine Headache 05/26/2024 Patient Outreach Department of [facility], [facility], in [place], [place] [address], [place] [address] Fouzia Saldana R.N. Care Coordination (Referral: Psychiatry) 05/16/2024 Patient Outreach Department of [facility], [facility], in [place], [place] [address] [place] [address] Fouzia Saldana R.N. Care Coordination ([facility] CC Follow Up) from Last 3 Months Immunizations Name Administration Dates Next Due DT, Pediatric 04/19/1999 HepB (discontinued) adolesce nt/high risk 03/10/2004,10/15/2003,09/17/2003 Influenza Split 09/07/2014 Influenza TIV (IM) 08/16/2012 Influenza, Injectable, Quadrivalent 08/03/2021 Influenza, Seasonal, Injectable 08/16/2012 Influenza, Unspecified 07/17/2017,2015,08/06/2013,2010,08/23/2010,11/30/2006 MMR 12/19/2021,09/22/2021,03/09/1998 Td (Adult), adsorbed 03/09/1998 Tdap 06/13/2023,02/26/2013,01/17/2009 influenza trivalent high dos e (HD)(PF) 09/07/2014 influenza vaccine quad (FLUZONE/FLUARIX) (6 months and older)(PF) 07/17/2017,08/24/2016 Family History Medical History Relation Name Comments ADD Brother 1 Marcial Alcohol abuse Brother 1 Marcial Depression Brother 1 Marcial Drug abuse Brother 1 Marcial Drug abuse Brother 2 Depression Brother 3 ADD Brother 4 Anxiety disorder Daughter Luis Armando Depression Daughter Luis Armando Coronary artery disease Father Foster Diabetes Grandfather Coronary artery disease Grandmother Diabetes Grandmother Hypertension Grandmother Alcohol abuse Maternal Grandfather Papa Clotting disorder Maternal Grandfather Papa Melanoma Maternal Grandfather Papa Obesity Maternal Grandfather Papa Skin cancer Maternal Grandfather Papa Stroke Maternal Grandfather Papa Transient ischemic attack Maternal Grandfather Papa Anesthesia problems Maternal Grandmother Anxiety disorder Maternal Grandmother Nandenise Clotting disorder Maternal Grandmother Colon cancer Maternal Grandmother Lung cancer Maternal Grandmother Nandenise Sleep apnea Maternal Grandmother Nandenise Anxiety disorder Mother Kimberly Depression Mother Kimberly Hypertension Mother Kimberly Migraines Mother Kimberly Obesity Mother Kimberly Sleep apnea Mother Kimberly ADD Son Toribio and Chito Psychiatric Son Toribio and Chito Relation Name Status Comments Brother 1 Marcial Brother 2 Brother 3 Brother 4 Daughter Luis Armando Father Foster Grandfather Grandmother Maternal Grandfather Papa Maternal Grandmother Nanny Mother Kimberly Son Toribio and Chito Social History Tobacco Use Types Packs/Day Years Used Date Smoking Tobacco: Never Smokeless Tobacco: Never Tobacco Cessation:Counseling Given: Not Answered Alcohol Use Standard Drinks/Week Comments No 0 (1 standard drink = 0.6 oz pur e alcohol) [facility] Utilities Answer Date Recorded In the past 12 months has [employer], gas, oil, or water [employer] threatened to shut off services in your home? Yes 10/20/2023 Humiliation, Afraid, Rape, and Kick questionnair e Answer Date Recorded Within the last year, have y ou been afraid of your partner or ex-partner? Patient declined 06/09/2023 Within the last year, have y ou been humiliated or emotionally abused in other ways by your partner or ex-partner? No 06/09/2023 Within the last year, have y ou been kicked, hit, slapped, or otherwise physically hurt by your partner or ex-partner? No 06/09/2023 Within the last year, have y ou been raped or forced to have any kind of sexual activity by your partner or ex-partner? No 06/09/2023 Social Connection and Isolation Panel [NHANES] A nswer Date Recorded Frequency of Communication with Friends and Fami ly Not on file 03/29/2020 How often do you get togethe r with friends or relatives? Never 03/29/2020 Attends [employer] Services Not on file 03/29 Active Member of Clubs or Organizations Not on f ile 03/29/2020 Attends Club or Organization Meetings Not on miguel e 03/29/2020 Are you , , di vorced, , never , or living with a partner? Living with partner 03/29/2020 AUDIT-C Answer Date Recorded Frequency of Alcohol Consumption Not on file 03/29/2020 Average Number of Drinks Not on file 020 Q3: How often do you have si x or more drinks on one occasion? Never 03/29/2020 Overall Financial Resource Strain (CARDIA) Answe r Date Recorded How hard is it for you to pa y for the very basics like food, housing, medical care, and heating? Very hard 10/16/2023 PHQ-2 Answer Date Recorded PHQ-2 Score 6 04/15/2024 [facility] - Occupational Stress Questionnaire Answer Date Recorded Feeling of Stress Very much 07/04/2019 Exercise Vital Sign Answer Date Recorde d On average, how many days pe r week do you engage in moderate to strenuous exercise (like a brisk walk)? 1 day 06/09/2023 On average, how many minutes do you engage in exercise at this level? 40 min 06/09/2023 Hunger Vital Sign Answer Date Recorded Within the past 12 months, y ou worried that your food would run out before you got the money to buy more. Often true 10/20/20 Within the past 12 months, t he food you bought just didn't last and you didn't have money to get more. Often true 10/20/2023 PRAPARE - Transportation Answer Date Re corded In the past 12 months, has l ack of transportation kept you from medical appointments or from getting medications? No 10/05 In the past 12 months, has l ack of transportation kept you from meetings, work, or from getting things needed for daily living? No 10/20/2023 Depression Answer Date Recor ded PHQ-9 Total Score (max 27) 20 04/15 Nutrition Answer Date Recorded On average, how many serving s of fruits and vegetables do you eat per day (serving size is equal to 1 cup or approximately the size of a tennis ball)? 0-2 06/09/2023 Dental Answer Date Recorded Dental: Regular Dentist Yes 06/09/20 Employment Answer Date Recorded Employment status Employed and actively working without restrictions 06/09/2023 Housing Stability Answer Date Recorded What is your living situation today? I h ave a place to live today, but I am worried about losing it in the future 10/20/2023 Education Answer Date Recorded What is the highest level of school you have completed or the highest degree you have received? 12th grade 07/04/2019 Sex and Gender Information Value Date Recorded Sex Assigned at Female 10/16/2018 10:53 AM PROGRAMS MANAGER Gender Identity Female 10/16/2018 10:53 AM PROGRAMS MANAGER Sexual Orientation Straight 06/27/2023 1: 38 PM CDT Last Filed Vital Signs Vital Sign Reading Time Taken Comments Blood Pressure 111/73 05/29/2024 1:30 PM CDT Pulse 92 05/29/2024 1:30 PM CDT Temperature 36.8 ??C (98.3 ??F) 03/13/2024 1:18 PM CD T Respiratory Rate 20 03/18/2024 9:30 AM CDT Oxygen Saturation 98% 12/17/2019 8:30 AM PROGRAMS MANAGER Inhaled Oxygen Concentration - - Weight 80 kg (176 lb 5.9 oz) 05/29/2024 1:30 PM CDT Height 166 cm (5' 5.35) 05/29/2024 1:30 PM CDT Body Mass Index 29.03 05/29/2024 1:30 PM CDT Plan of Treatment Upcoming Encounters Date Type Department Care Team (Late st Contact Info) Description 08/12/2024 1:30 PM CDT Office Visit Department of Family Medicine, [facility], in [place], [place] [address] [place] [phone] Annemarie Montiel M.D. [address] [address] 08/27/2024 9:45 AM CDT Procedure visit Department of Neurology in [place], [place] [address], [place] [address] Hipolito Babin M.D. [address] [place] [phone] Scheduled Procedures Name Priority Associated Diagnoses Date/Ti me LIFT THIGH Excessive And Redundant Skin And Subcutaneous Tissue Health Maintenance Due Date Last Done Comments COVID-19 Vaccine ( season) 2024 10/18/2021, 04/08/2021, 03/18/2021 Influenza Vaccine (#1) 2024 , 07/17/2017, 07/17/2017, Additional history exists Depression Monitoring (PHQ-9) 08/15/2024 04/15/2024 Lipid (Cholesterol) Screening 06/13/2028 06/13/2023, 09/06/2017, 09/06/2017, Additional history exists DTaP,Tdap,and Td Vaccines (6 - Td or Tdap) 06/13/2033 06/13/2023, 02/26/2013, 01/17/2009, Additional history exists Hepatitis B Vaccines Completed 03/10/2004, 10/15/2003, 09/17/2003 HIV Screening Completed 06/06/2024, 11/05, 04/07/2016, Additional history exists Hepatitis C Screening Completed 06/06/2024, 015 HPV Vaccines Aged Out No longer eligi ble based on patient's age to complete this topic Pneumococcal vaccine (0-64 years) Aged Out No longer eligible based on patient's age to complete this topic Medical Devices Implanted Type Area Groundman Device Identifier Shelf Expiration Date Model / Serial / Lot Conversions - Default Historical Implant Device Implanted:12/2014 (Quantity not on file) Hardware e.g. pins/screws /rods Mouth Description:Body Location - Mouth. both sides of jaw. Device Status Text - Hardware. Clp Hrzn Ti 6 Clp Sheng - [id number] Implanted:Qty: 1 on 12/16/2019 by Clare Deleon, M.B.B.S. at [facility] [place] Hardware e.g. pins/screws /rods N/A: Abdomen [employer] [id number] 03/25/2024 [id number] / / [id number] Clp Hrzn Ti 6 Clp Sm Red - [id number] Implanted:Qty: 1 on 12/16/2019 by Clare Deleon M.B.BRodrigoS. at [facility] [place] Hardware e.g. pins/screws /rods N/A: Abdomen [employer] [id number] 03/25/2024 [id number] / / [id number] Procedures Procedure Name Priority Date/Time Associated Diagnosis Comments LA URINALYSIS AUTO W MICRO Routine 07/15/2024 2:40 PM CDT URINALYSIS WITH MICROSCOPIC IF INDICATED, U Routine 07/15/2024 2:40 PM CDT Symptom Urinary BACTERIAL CULTURE, AEROBIC + SUSC, URINE Routine 07/15/2024 2:40 PM CDT Symptom Urinary SYPHILIS TOTAL AB W/ REFLEX S Routine 06/06/2024 11:13 AM CDT Exposure Sexually Transmitted Disease HCV AB SCRN W/REFLEX TO HCV PCR, S Routine 06/06/2024 11:13 AM CDT Exposure Sexually Transmitted Disease HIV-1/-2 AG AND AB SCREEN, PLASMA Routine 06/06/2024 11:13 AM CDT Exposure Sexually Transmitted Disease CHLAMYDIA/GONORRHOEA E AMPLIFIED RNA Routine 06/06/2024 11:10 AM CDT Exposure Sexually Transmitted Disease LIPID PANEL, S Routine 06/13/2023 5:29 PM CDT Screening Lipid from Last 3 Months or Most Recently Relevant to Health Maintenance Results * (ABNORMAL) Urinalysis with Microscopic if Indicated (07/15/2024 2:40 PM CDT) Source Urine, Urine, Midstream 07/15/2024 2:44 PM CDT FB60 Clarity Slightly Cloudy(A) Clear 07/15/2024 2:49 PM CDT FB60 Color Yellow 07/15/2024 2:49 PM CDT FB60 Comment: ----REFERENCE VALUE---- Colorless Yellow [place] Blood Negative Negative 07/15/2024 2:49 PM CDT FB60 Nitrite Negative Negative 07/15/2024 2:49 PM CDT FB60 Leukocyte Esterase Negative Negative 07/15/2024 2:49 PM CDT FB60 Protein Negative mg/dL 07/15/2024 2:49 PM CDT FB60 Comment: ----REFERENCE VALUE---- Negative Trace Glucose Negative Negative mg/dL 07/15/2024 2:49 PM CDT FB60 Ketones, QI(U) Trace(A) Negative mg/dL 07/15/2024 2:49 PM CDT FB60 Bilirubin Negative Negative 07/15/2024 2:49 PM CDT FB60 pH 5.5 5.0 - 8.0 07/15/2024 2:49 PM CDT FB60 Specific [place] >=1.030 1.001 - 1.035 07/15/2024 2:49 PM CDT FB60 Urobilinogen 1.0 0.2 - 1.0 mg/dL 07/15/2024 2:49 PM CDT FB60 Urine (Urine, Midstream) 07/15/2024 2:40 PM CDT 07/15/2024 2:43 PM CDT Annemarie Montiel M.D. LAB URINE ORDERAB LES [facility] [address] [place] [address], [facility] FB60 [facility] in [address] [place] [address] * Microscopic Manual (07/15/2024 2:40 PM CDT) White Blood Cells Occ-3 /hpf 07/15/2024 3:13 PM CDT FB60 Comment: ----REFERENCE VALUE---- Males: 0-3 Females: 0-10 Unknown: 0-10 Red Blood Cells None Seen 0 - 2 /hpf 07/15/2024 3:13 PM CDT FB60 Squamous Cells 4-10 /hpf 07/15/2024 3:13 PM CDT FB60 Urine 07/15/2024 2:40 PM CDT 07/15/2024 2:43 PM CDT Annemarie Montiel M.D. LAB URINE ORDERAB LES [facility] [address] [place] [address], [facility] FB60 [facility] in [place] [address] [place] [address] * (ABNORMAL) Bacterial Culture, Aerobic + Susceptibility, Urine (07/15/2024 2:40 PM CDT) Urine Culture ESCHERICHIA COLI >100,000 cfu/mL (A) 07/17/2024 6:19 AM CDT [facility]TO Urine (Urine, Midstream) 07/15/2024 2:40 PM CDT 07/15/2024 7:15 PM CDT Comment:Specimen Source Site : Urine Narrative Organism Antibiotic Method Susceptibility Escherichia coli Ampicillin SUSCEPTIBILITY, EMY (MCG/ML) 4 mcg/mL: Susceptible Escherichia coli Ampicillin + Sulbactam SUSCEPTI BILITY, EMY (MCG/ML) <=2 mcg/mL: Susceptible Escherichia coli Piperacillin + Tazobactam SUSCE PTIBILITY, EMY (MCG/ML) <=4 mcg/mL: Susceptible Escherichia coli Cefazolin SUSCEPTIBILITY, EMY (MCG/ML) <=4 mcg/mL: Susceptible Comment: The interpretation applies to uncomplicated urinary tract infections only. It also applies to these oral cephalosporins: cefuroxime, cephalexin, and cefprozil. Escherichia coli Ceftazidime SUSCEPTIBILITY, EMY (MCG/ML) <=1 mcg/mL: Susceptible Escherichia coli Ceftriaxone SUSCEPTIBILITY, EMY (MCG/ML) <=1 mcg/mL: Susceptible Escherichia coli Cefepime SUSCEPTIBILITY, EMY (MCG/ML) <=1 mcg/mL: Susceptible Escherichia coli Aztreonam SUSCEPTIBILITY, EMY (MCG/ML) <=1 mcg/mL: Susceptible Escherichia coli Ertapenem SUSCEPTIBILITY, EMY (MCG/ML) <=0.5 mcg/mL: Susceptible Escherichia coli Meropenem SUSCEPTIBILITY, EMY (MCG/ML) <=0.25 mcg/mL: Susceptible Escherichia coli Gentamicin SUSCEPTIBILITY, EMY (MCG/ML) <=1 mcg/mL: Susceptible Escherichia coli Tobramycin SUSCEPTIBILITY, EMY (MCG/ML) <=1 mcg/mL: Susceptible Escherichia coli Levofloxacin SUSCEPTIBILITY, EMY (MCG/ML) <=0.12 mcg/mL: Susceptible Escherichia coli Nitrofurantoin SUSCEPTIBILITY, EMY (MCG/ML) <=16 mcg/mL: Susceptible Escherichia coli Trimethoprim + Sulfamethoxazole SUSCEPTIBILITY, EMY (MCG/ML) <=20 mcg/mL: Susceptible Annemarie Montiel M.D. LAB MICROBIOLOGY - GENERAL ORDERABLES [facility] [address] [place] [address], [place] MKTO [facility] in [place] [address] [place] [address] * HIV-1/-2 Ag and Ab Screen, Plasma (06/06/2024 11:13 AM CDT) [facility] HIV Ag/Ab Screen, P Negative Negative 06/08/2024 10:48 AM CDT [facility] Comment: Negative result does not rule out HIV infection. If exposure to HIV infection occurred <14 days ago, contact the laboratory to request addition of HIV-1/HIV-2 RNA detection, Plasma (HIP12). HIV-1 p24 Ag Screen, P Negative Negative 06/08/2024 10:48 AM CDT [facility] Comment: Negative result does not rule out HIV infection. If exposure to HIV infection occurred <14 days ago, contact the laboratory to request addition of HIV-1/HIV-2 RNA detection, Plasma (HIP12). HIV-1 Ab Screen, P Negative Negative 06/08/2024 10:48 AM CDT [facility] Comment: Negative result does not rule out HIV infection. If exposure to HIV infection occurred <14 days ago, contact the laboratory to request addition of HIV-1/HIV-2 RNA detection, Plasma (HIP12). HIV-2 Ab Screen, P Negative Negative 06/08/2024 10:48 AM CDT [facility] Comment: Negative result does not rule out HIV infection. If exposure to HIV infection occurred <14 days ago, contact the laboratory to request addition of HIV-1/HIV-2 RNA detection, Plasma (HIP12). Blood (Blood, Venous) 06/06/2024 11:13 AM CDT 06/07/2024 3:50 PM CDT Annemarie Montiel M.D. LAB MICROBIOLOGY - BLOOD ORDERABLES Performing Organization Address [facility]/ZIP Co de Phone Number [facility] [address] [place] [address], [facility] in [address] [address] * Syphilis Total Antibody with Reflex, Serum (06/06/2024 11:13 AM CDT) Syphilis Total Ab w/ Reflex Nonreactive Nonreactive 06/08/2024 10:42 AM CDT [facility] Comment: No serologic evidence of infection with T. pallidum (syphilis). ??Repeat testing may be considered in patients with suspected acute or primary syphilis in 2-4 weeks. For additional information on interpretation of the syphilis reverse algorithm and results, see: [email or web address] Blood (Blood, Venous) 06/06/2024 11:13 AM CDT 06/07/2024 3:49 PM CDT Annemarie Montiel M.D. LAB BLOOD ADD-ON Performing Organization Address [facility]/ZIP Co de Phone Number [address] [address], [facility] in [address] [address] * HCV Ab Scrn w/Reflex to HCV PCR, Serum (06/06/2024 11:13 AM CDT) HCV Ab Screen, S Negative Negative 06/06/2024 2:37 PM CDT TO Blood (Blood, Venous) 06/06/2024 11:13 AM CDT 06/06/2024 1:[address] [facility] - 06/06/2024 2:37 PM CDT Specimen Information: Specimen ID: [id number] Specimen Type: Blood Specimen Collection Start Date: 06/06/2024 11:13 AM Specimen Received Date: 06/06/2024 ??1:53 PM Specimen ID: [id number] Specimen Type: Blood Specimen Collection Start Date: 06/06/2024 11:13 AM Specimen Received Date: 06/06/2024 ??2:38 PM Annemarie Montiel M.D. LAB MICROBIOLOGY - BLOOD ORDERABLES Performing Organization Address [facility] Co de Phone Number [facility] [place] [address], [facility] MKTO [facility] [place] [address] * Chlamydia / Gonorrhoeae Amplified RNA (06/06/2024 11:10 AM CDT) Source Urine, Urine, First Voided 06/06/2024 11:14 PM CDT MKTO Chlamydia trachomatis amplified RNA Negative Negative 06/06/2024 11:14 PM CDT MKTO Source Urine, Urine, First Voided 06/06/2024 11:14 PM CDT MKTO Neisseria gonorrhoeae amplified RNA Negative Negative 06/06/2024 11:14 PM CDT MKTO Urine (Urine, First Voided) 06/06/2024 11:10 AM CDT 06/06/2024 1:52 PM CDT Annemarie Montiel M.D. LAB MICROBIOLOGY - GENERAL ORDERABLES Performing Organization Address [facility] Co de Phone Number [facility] [address] [place] [address], [facility] MKTO [address] [place] [address] * Lipid Panel (06/13/2023 5:29 PM CDT) Triglycerides 56 mg/dL 06/14/2023 8:36 AM CDT OWAT Comment: ----REFERENCE VALUE---- Normal: <150 mg/dL Borderline High: 150-199 mg/dL High: 200-499 mg/dL Very High: > or =500 mg/dL Cholesterol, Total 172 mg/dL 2022 8:36 AM CDT OWAT Comment: ----REFERENCE VALUE---- Desirable: < 200 mg/dL Borderline High: 200 - 239 mg/dL High: > or = 240 mg/dL Cholesterol, LDL, Calculated 102 mg/dL 06/14/2023 8:36 AM CDT OWAT Comment: ----REFERENCE VALUE---- Desirable: <100 mg/dL Above Desirable: 100-129 mg/dL Borderline High: 130-159 mg/dL High: 160-189 mg/dL Very High: >=190 mg/dL ----ADDITIONAL INFORMATION---- LDL cholesterol calculated using the Alfaro/NIH equation. Cholesterol, HDL 59 >=50 mg/dL 06/14/20 8:36 AM CDT OWAT Cholesterol, Non-HDL, Calculated 113 mg/dL 06/14/2023 8:36 AM CDT OWAT Comment: ----REFERENCE VALUE---- Desirable: <130 mg/dL Above Desirable: 130-159 mg/dL Borderline High: 160-189 mg/dL High: 190-219 mg/dL Very High: > or =220 mg/dL Fasting (8 HR or more) No 06/13/2023 5:30 PM CDT OWAT Blood (Blood, Venous) 06/13/2023 5:29 PM CDT 06/13/2023 5:30 PM CDT Parisa Mills M.D. LAB BLOOD ADD-ON [facility] [address] [place] [address], [facility] OWAT [facility] in [place] [address] [place] [address] from Last 3 Months or Most Recently Relevant to Health Maintenance Advance Directives For more information, please contact: [phone] * Full Code (Latest Code Status on File) Date Activated Date Inactivated Comments 12/16/2019 3:26 PM 12/17/2019 12:11 PM Question Answer Comments Full Code: Discussed Care Teams Family Preservation Officer Relationship Specialty Start Date End Date Annemarie Montiel M.D. [address] [facility] [place] [phone] PCP - General 04/19/17
--- OUTSIDE RECORDS SUMMARY | 2024-08-02 20:37 | XMS_ITS ---
Author Organization [facility] Address [address] [place] [address] Care Team Providers Care Vision Therapist Name Role Phone Unavailable Unavailable Unavailable Surgery Details Not on file Complications Check Surgery Details section. Procedure Estimated Blood Loss Check Surgery Details section. Procedure Findings Check Surgery Details section. Procedure Specimens Taken Check Surgery Details section.
--- OUTSIDE RECORDS SUMMARY | 2024-08-02 20:37 | XMS_ITS | Referral Summary ---
Author Organization [facility] Address [address] [place] [address] Care Team Providers Care Ladle Patcher Name Role Phone Annemarie Montiel M.D. Primary Care Provider +1 -[phone] Source Comments Patient records contain information from all sites at [facility]. For routine questions regarding patient records, call [phone] during business hours, M-F 8:00 AM - 5:00 PM Central Time. Record requests for emergency care only can be directed to [phone] at any time.[facility] Encounters Date Type Department Care Team Description 07/16/2024 Orders Only Department of Family Medicine, [facility], in [place], [place] [address] [place] [phone] Annemarie Montiel M.D. 07/15/2024 1:30 PM CDT - 07/15/2024 11:59 PM CDT Hospital Encounter Department of Laboratory Medicine in [address] [phone] Annemarie Montiel M.D. Symptom Urinary Discharge Disposition: Home or Self Care 07/11/2024 E-Visit Department of Family Medicine, [facility], in [place], [place] [address] [phone] Annemarie Montiel M.D. Labs 07/08/2024 Refill Department of Family Medicine, [facility], in [place], [place] [address] [phone] Annemarie Montiel M.D. Med Refill 06/19/2024 Patient Outreach Department of [facility], [facility], in [address] [phone] Fouzia Saldana, R.Art Care Coordination ([facility] CC Attempt #2 and Portal) 06/06/2024 10:50 AM CDT - 06/06/2024 11:59 PM CDT Hospital Encounter Department of Laboratory Medicine in [address] [phone] Annemarie Montiel M.D. Exposure Sexually Transmitted Disease Discharge Disposition: Home or Self Care 06/06/2024 10:50 AM CDT Hospital Encounter Department of Laboratory Medicine in [address] [phone] Annemarie Montiel M.D. Exposure Sexually Transmitted Disease Discharge Disposition: Home or Self Care 06/05/2024 Nurse Triage Department of [facility], [facility], in [address] [phone] Tammy Wei RCiera STI Screening 06/05/2024 Patient Outreach Department of [facility], in [address] [phone] Fouzia Saldana, R.Art Care Coordination ([facility] CC Attempt #1 and Mailed BRIANDA) 06/03/2024 Clinical Communication Pharmacy Prior Auth RO [phone] Sophia Roberts RX APPROVAL (UBRELVY 100MG TAB) 06/02/2024 Refill Department of [facility], [facility], in [address] [phone] Annemarie Montiel M.D. Med Refill 05/30/2024 Patient Outreach Department of Family Medicine, [facility], in [place], [place] [address] [place] [phone] Fouzia Saldana R.N. Care Coordination ([facility] CC Follow Up) 05/30/2024 Clinical Communication Department of Neurology in [place], [place] [address] [place] [phone] Hipolito Babin M.D. 05/29/2024 1:30 PM CDT Comprehensive Visit Department of Neurology in [address] [phone] Hipolito Babin M.D. Chronic Migraine (Primary Dx); Migraine Headache 05/26/2024 Patient Outreach Department of [facility], in [place], [place] [address] [place] [phone] Fouzia Saldana R.N. Care Coordination (Referral: Psychiatry) 05/16/2024 Patient Outreach Department of [facility], [facility], in [place], [place] [address] [place] [phone] Fouzia Saldana R.N. 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 Unspecified 04/20/2007 03/27/2018 Immunizations Name Administration Dates Next Due DT, Pediatric 04/19/1999 HepB (discontinued) adolesce nt/high risk 03/10/2004,10/15/2003,09/17/2003 Influenza Split 09/07/2014 Influenza TIV (IM) 08/16/2012 Influenza, Injectable, Quadrivalent 08/03/2021 Influenza, Seasonal, Injectable 08/16/2012 Influenza, Unspecified 07/17/2017,2015,08/06/2013,2010,08/23/2010,11/30/2006 MMR 12/19/2021,09/22/2021,03/09/1998 Td (Adult), adsorbed 03/09/1998 Tdap 06/13/2023,02/26/2013,01/17/2009 influenza trivalent high dos e (HD)(PF) 09/07/2014 influenza vaccine quad (FLUZONE/FLUARIX) (6 months and older)(PF) 07/17/2017,08/24/2016 Social History Tobacco Use Types Packs/Day Years Used Date Smoking Tobacco: Never Smokeless Tobacco: Never Tobacco Cessation:Counseling Given: Not Answered Alcohol Use Standard Drinks/Week Comments No 0 (1 standard drink = 0.6 oz pur e alcohol) [facility] Utilities Answer Date Recorded In the past 12 months has e [employer], gas, oil, or water [employer] threatened to shut off services in your [...] with friends or relatives? Never 03/29/2020 Attends Christianity Services Not on file 03/29 Active Member [...] Answer Date Recorded PHQ-2 Score 6 04/15/2024 [facility] of Occupat ional Health - Occupational Stress [...] Sex Assigned at Female 10/16/2018 10:53 AM FRENCH FOLDER Gender Identity Female 10/16/2018 10:53 AM FRENCH FOLDER Sexual Orientation Straight 06/27/2023 1: 38 PM CDT Last Filed Vital Signs Vital Sign Reading Time Taken Comments Blood Pressure 111/73 05/29/2024 1:30 PM CDT Pulse 92 05/29/2024 1:30 PM CDT Temperature 36.8 ??C (98.3 ??F) 03/13/2024 1:18 PM CD T Respiratory Rate 20 03/18/2024 9:30 AM CDT Oxygen Saturation 98% 12/17/2019 8:30 AM FRENCH FOLDER Inhaled Oxygen Concentration - - Weight 80 kg (176 lb 5.9 oz) 05/29/2024 1:30 PM CDT Height 166 cm (5' 5.35) 05/29/2024 1:30 PM CDT Body Mass Index 29.03 05/29/2024 1:30 PM CDT Plan of Treatment Upcoming Encounters Date Type Department Care Team (Late st Contact Info) Description 08/12/2024 1:30 PM CDT Office Visit Department of Family Medicine, [facility], in [place], [place] [address] [phone] Annemarie Montiel M.D. [address] [phone] 08/27/2024 9:45 AM CDT Procedure visit Department of Neurology in [place], [place] [address] [phone] Hipolito Babin M.D. [address] [phone] Scheduled Procedures Name Priority Associated Diagnoses Date/Ti me LIFT THIGH Excessive And Redundant Skin And Subcutaneous Tissue Medical Devices Implanted Type Area Java Xml Developer Device Identifier Shelf Expiration Date Model / Serial / Lot Conversions - Default Historical Implant Device Implanted:12/2014 (Quantity not on file) Hardware e.g. pins/screws /rods Mouth Description:Body Location - Mouth. both sides of jaw. Device Status Text - Hardware. Clp Hrzn Ti 6 Clp Sheng - [id number] Implanted:Qty: 1 on 12/16/2019 by Clare Deleon M.B.B.S. at [facility] Hardware e.g. pins/screws /rods N/A: Abdomen Teleflex Wanova [id number] 03/25/2024 [id number] / / [id number] Clp Hrzn Ti 6 Clp Ina Red - [id number] Implanted:Qty: 1 on 12/16/2019 by Clare Deleon, Sharif.B.B.S. at [facility] Hardware e.g. pins/screws /rods N/A: Abdomen Teleflex Wanova [id number] 03/25/2024 [id number] / / [id number] Procedures Procedure Name Priority Date/Time Associated Diagnosis Comments OK URINALYSIS AUTO W MICRO Routine 07/15/2024 2:40 [...] 8.0 07/15/2024 2:49 PM CDT FB60 Specific [place] >=1.030 1.001 - 1.035 07/15/2024 2:49 PM CDT FB60 Urobilinogen 1.0 0.2 - 1.0 mg/dL 07/15/2024 2:49 PM CDT FB60 Urine (Urine, Midstream) 07/15/2024 2:40 PM CDT 07/15/2024 2:43 PM CDT Annemarie Montiel M.D. LAB URINE ORDERAB LES Performing Organization Address City/[facility] Co de Phone Number [facility] [address] [place] [address], [facility] FB60 [facility] [place] [address] * Microscopic Manual (07/15/2024 2:40 PM CDT) [...] Annemarie Montiel M.D. LAB URINE ORDERAB LES [facility] [address] [place] [address], [facility] FB60 [facility] in [place] [address] [place] [id number] * (ABNORMAL) Bacterial Culture, Aerobic + Susceptibility, [...] MICROBIOLOGY - GENERAL ORDERABLES Performing Organization Address City/[facility]/ZIP Co de Phone Number [facility] [address] [place] [address], [facility] MKTO [facility] in [place] [address] [place] [address] * HIV-1/-2 Ag and Ab Screen, Plasma (06/06/2024 11:13 AM CDT) [facility] HIV Ag/Ab Screen, P Negative Negative 06/08/2024 [...] Montiel M.D. LAB MICROBIOLOGY - BLOOD ORDERABLES [facility] [address] [place] [address], [facility] in [address] [address] * Syphilis Total Antibody with Reflex, Serum (06/06/2024 11:13 AM CDT) Syphilis Total Ab w/ Reflex Nonreactive Nonreactive 06/08/2024 10:42 AM CDT [facility] Comment: No serologic evidence of infection with T. pallidum (syphilis). ??Repeat testing may be considered in patients with suspected acute or primary syphilis in 2-4 weeks. For additional information on interpretation of the syphilis reverse algorithm and results, see: [email or web address] Blood (Blood, Venous) 06/06/2024 11:13 AM CDT 06/07/2024 3:49 PM CDT Annemarie Montiel M.D. LAB BLOOD ADD-ON [facility] [address] [place] [address], [facility] in [address] [address] * HCV Ab Scrn w/Reflex to HCV PCR, Serum (06/06/2024 11:13 AM CDT) HCV Ab Screen, S Negative Negative 06/06/2024 2:37 PM CDT TO Blood (Blood, Venous) 06/06/2024 11:13 AM CDT 06/06/2024 1:[address] [facility] - 06/06/2024 2:37 PM CDT Specimen Information: Specimen ID: [id number] Specimen Type: Blood Specimen Collection Start Date: 06/06/2024 11:13 AM Specimen Received Date: 06/06/2024 ??1:53 PM Specimen ID: [id number] Specimen Type: Blood Specimen Collection Start Date: 06/06/2024 11:13 AM Specimen Received Date: 06/06/2024 ??2:38 PM Annemarie Montiel M.D. LAB MICROBIOLOGY - BLOOD ORDERABLES Performing Organization Address [facility]/State/ZIP Co de Phone Number [facility] [address] [place] [address], [facility] MKTO [facility] in [place] [address] [place] [address] * Chlamydia / Gonorrhoeae Amplified RNA (06/06/2024 [...] Montiel M.D. LAB MICROBIOLOGY - GENERAL ORDERABLES [facility] [address] [place] [address], [facility] MKTO [address] [place] [address] * Lipid Panel (06/13/2023 5:29 PM CDT) [...] CDT Parisa Mills M.D. LAB BLOOD ADD-ON [facility] [address] [place] [address], [facility] OWAT [facility] in [place] [address] [place] [address] from Last 3 Months or Most Recently Relevant to Health Maintenance Advance Directives For more information, please contact: [phone] * Full Code (Latest Code Status on File) Date Activated Date Inactivated Comments 12/16/2019 3:26 PM 12/17/2019 12:11 PM Question Answer Comments Full Code: Discussed Care Teams Ladle Patcher Relationship Specialty Start Date End Date Annemarie Montiel M.D. [address] [place] [phone] PCP - General 04/19/17
--- OUTSIDE RECORDS SUMMARY | 2024-08-02 20:37 | XMS_ITS | Encounter Summary ---
Author Organization [facility] Address [address] [place] [address] Care Team Providers Care Brush Sander Name Role Phone Annemarie Montiel M.D. Primary Care Provider +1 -[phone] Encounter Details Date Type Department Care Team (Late st Contact Info) Description 07/16/2024 Orders Only Department of Family Medicine, [facility], in [place], [place] [address] [phone] Annemarie Montiel M.D. [address], [place] [phone] Social History Tobacco Use Types Packs/Day Years Used Date Smoking Tobacco: Never Smokeless Tobacco: Never Alcohol Use Standard Drinks/Week Comments No 0 (1 standard drink = 0.6 oz pur e alcohol) [facility] Utilities Answer Date Recorded In the past 12 months has [facility] [employer], [employer], oil, or water [employer] threatened to shut off services in your [...] with friends or relatives? Never 03/29/2020 Attends Congregation Services Not on file 03/29 Active Member [...] Answer Date Recorded PHQ-2 Score 6 04/15/2024 [facility] of Occupat ional Health - Occupational [...] money to buy more. Often true 10/20/20 23 Within the past 12 months, t he [...] Sex Assigned at Female 10/16/2018 10:53 AM COMMUNICATIONS ENGINEER Gender Identity Female 10/16/2018 10:53 AM COMMUNICATIONS ENGINEER Sexual Orientation Straight 06/27/2023 1: 38 PM CDT documented as of this encounter Plan of Treatment Upcoming Encounters Date Type Department Care Team (Late st Contact Info) Description 08/12/2024 1:30 PM CDT Office Visit Department of Family Medicine, [facility], in [place], [place] [address] [place] [phone] Annemarie Montiel M.D. [address] [place] [phone] 08/27/2024 9:45 AM CDT Procedure visit Department of Neurology in [place], [place] [address] [place] [phone] Hipolito Babin M.D. [address] [place] [phone] Scheduled Procedures Name Priority Associated Diagnoses Date/Ti me LIFT THIGH Excessive And Redundant Skin And Subcutaneous Tissue documented as of this encounter Visit Diagnoses Not on filedocumented in this encounter Additional Health Concerns Assessment Noted Time PHQ-9 Depression Total Score: 20 024 12:51 PM CDT documented as of this encounter Care Teams Brush Sander Relationship Specialty Start Date End Date Annemarie Montiel M.D. [address] [place] [phone] PCP - General 04/19/17 documented as of this encounter
--- OUTSIDE RECORDS SUMMARY | 2024-08-02 20:38 | XMS_ITS | Encounter Summary ---
Author Organization [facility] Address [address] [place] [address] Care Team Providers Care Sampling Theory Teacher Name Role Phone Annemarie Montiel M.D. Primary Care Provider +1 -[phone] Reason for Visit * Reason Onset Date Comments RX APPROVAL 06/03/2024 UBRELVY 100MG TA B Encounter Details Date Type Department Care Team (Latest Contact Info) Description 06/03/2024 Clinical Communication Pharmacy Prior [facility] RO [phone] Sophia Roberts RX APPROVAL (UBRELVY 100MG TAB) Social History Tobacco Use Types Packs/Day Years Used Date Smoking Tobacco: Never Smokeless Tobacco: Never Alcohol Use Standard Drinks/Week Comments No 0 (1 standard drink = 0.6 oz pur e alcohol) [facility] Utilities Answer Date Recorded In the past 12 months has e electric, gas, oil, or water [employer] threatened to shut off services in your [...] with friends or relatives? Never 03/29/2020 Attends Evangelical Services Not on file 03/29 Active Member [...] Answer Date Recorded PHQ-2 Score 6 04/15/2024 [facility] of Occupat ional [facility] - Occupational Stress Questionnaire Answer Date Recorded [...] Sex Assigned at Female 10/16/2018 10:53 AM LEARNING AND DEVELOPMENT INTERN Gender Identity Female 10/16/2018 10:53 AM LEARNING AND DEVELOPMENT INTERN Sexual Orientation Straight 06/27/2023 1: 38 PM CDT documented as of this encounter Miscellaneous Notes * Telephone Encounter - Sophia Roberts - 06/03/2024 10:59 AM CDT Pharmaceutical prior authorization has been approved for UBRELVY 100MG TAB If you have any follow-up questions, please send an [employer] in [employer] message to P [facility] POOL. documented in this encounter Plan of Treatment Upcoming Encounters Date Type Department Care Team (Late st Contact Info) Description 08/12/2024 1:30 PM CDT Office Visit Department of Family Medicine, [facility], in [place], [place] [address] [place] [phone] Annemarie Montiel M.D. [address] [place] [phone] 08/27/2024 9:45 AM CDT Procedure visit Department of Neurology in [place], [place] [address], [place] [phone] Hipolito Babin M.D. [address] [place] [address] [place] [phone] Scheduled Procedures Name Priority Associated Diagnoses Date/Ti me LIFT THIGH Excessive And Redundant Skin And Subcutaneous Tissue documented as of this encounter Visit Diagnoses Not on filedocumented in this encounter Additional Health Concerns Assessment Noted Time PHQ-9 Depression Total Score: 20 024 12:51 PM CDT documented as of this encounter Care Teams Sampling Theory Teacher Relationship Specialty Start Date End Date Annemarie Montiel M.D. [address] [place] [phone] PCP - General 04/19/17 documented as of this encounter
--- OUTSIDE RECORDS SUMMARY | 2024-08-02 20:38 | XMS_ITS | Encounter Summary ---
Author Organization [facility] Address [address] [place] [address] Care Team Providers Care Starch Dumper Name Role Phone Annemarie Montiel M.D. Primary Care Provider +1 -[phone] Encounter Details Date Type Department Care Team (Late st Contact Info) Description 05/30/2024 Clinical Communication Department of Neurology in [place], [place] [address] [phone] Hipolito Babin M.D. [address] [phone] Social History Tobacco Use Types Packs/Day Years Used Date Smoking Tobacco: Never Smokeless Tobacco: Never Alcohol Use Standard Drinks/Week Comments No 0 (1 standard drink = 0.6 oz pur e alcohol) [facility] Utilities Answer Date Recorded In the past 12 months has [facility] [employer], gas, oil, or water [employer] threatened to shut off services in your [...] with friends or relatives? Never 03/29/2020 Attends [employer]ze Services Not on file 03/29 Active Member [...] Answer Date Recorded PHQ-2 Score 6 04/15/2024 [facility] of Occupat ional Health - Occupational Stress [...] Sex Assigned at Female 10/16/2018 10:53 AM CHILDHOOD DEVELOPMENT TEACHER Gender Identity Female 10/16/2018 10:53 AM CHILDHOOD DEVELOPMENT TEACHER Sexual Orientation Straight 06/27/2023 1: 38 PM CDT documented as of this encounter Plan of Treatment Upcoming Encounters Date Type Department Care Team (Late st Contact Info) Description 08/12/2024 1:30 PM CDT Office Visit Department of Family Medicine, [facility], in [place], [place] [address] [place] [phone] Annemarie Montiel M.D. [address] [place] [phone] 08/27/2024 9:45 AM CDT Procedure visit Department of Neurology in [place], [place] [address], [place] [phone] Hipolito Babin M.D. [address] [place] [phone] Scheduled Procedures Name Priority Associated Diagnoses Date/Ti me LIFT THIGH Excessive And Redundant Skin And Subcutaneous Tissue documented as of this encounter Visit Diagnoses Not on filedocumented in this encounter Additional Health Concerns Assessment Noted Time PHQ-9 Depression Total Score: 024 12:51 PM CDT documented as of this encounter Care Teams Starch Dumper Relationship Specialty Start Date End Date Annemarie Montiel M.D. [address] [phone] PCP - General 04/19/17 documented as of this encounter
--- OUTSIDE RECORDS SUMMARY | 2024-08-02 20:38 | XMS_ITS | Encounter Summary ---
Author Organization [facility] Address [address] [place] [address] Care Team Providers Care Marketing Analytics Analyst Name Role Phone Annemarie Montiel M.D. Primary Care Provider [phone] [phone] Reason for Visit * Reason Comments Care Coordination [facility] Follow Up Encounter Details Date Type Department Care Team (Latest Contact Info) Description 05/16/2024 Patient Outreach Department of Family Medicine, [facility], in [place], [place] [address] [address] Fouzia Saldana R.N. [address] [address] Care Coordination ([facility] CC Follow Up) Social History Tobacco Use Types Packs/Day Years Used Date Smoking Tobacco: Never Smokeless Tobacco: Never Alcohol Use Standard Drinks/Week Comments No 0 (1 standard drink = 0.6 oz pur e alcohol) [facility] Utilities Answer Date Recorded In the past 12 months has [facility] [employer], [employer], oil, or water [employer] threatened to shut off services in your [...] with friends or relatives? 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 - 05/19/2024 3:48 PM CDT SUBJECTIVE CHIEF COMPLAINT / REASON FOR CALL Care Coordination (IB CC Follow Up) Information Discussed Discussed Dr. Jurado recommendation to schedule with psychiatry. Maria Alejandra is currently seeing a therapist at [facility]. She is open to a psychiatry prescriber at [facility]. Contacted [facility] and they are not accepting outside referrals. Left voicemail with [facility] intake regarding referral as patient is currently an internal patient. PLAN Next contact: May 30 at 12 pm Disposition/Recommendation: self-care is appropriate at this time, patient encouraged to call back with questions Information/Education: patient/caller able to teach back Caller agreeable to plan of care: yes The following references were used: nursing clinical judgement * Fouzia Saldana R.N. - 05/16/2024 1:38 PM CDT SUBJECTIVE REASON FOR CHART REVIEW Referral to Integrated Behavioral Health (IB) Adult Care Coordination program Referral Source: Self ASSESSMENT Patricia has been going through a difficult time. Maria Alejandra's son, , 13-year-old, was hospitalized again. She is struggling with her mental health and narcolepsy. She is working in [place] and feels very tired during the drive. 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 Maria Alejandra was denied SSDI. Maria Alejandra was hopeful she was going to begin working at [employer]. When Maria Alejandra is at her boyfriend's house, she feels peace but when at home has high anxiety. Her daughter went into labor. Maria Alejandra has been denied for [facility] mental health healthcare social worker. son is connected with [employer]. She has tried to have placed into residential treatmen t, but has been denied. Maria Alejandra is seeing a therapist through [facility]. Inclusion Criteria: 01/07/2024 9:35 AM 04/15/2024 12:50 PM 04/15/2024 12:51 PM PHQ9 Score PHQ-9 Total Score (max 27) 17 20 20 Patient Active Problem List Diagnosis Major Depressive Disorder, Recurrent, Unspecified (HCC) Anxiety Generalized Disorder Herpes Genitalis Hysterectomy Abdominal Status Post Migraine Headache Surgery Bariatric Status Post Narcolepsy (HCC) Patient does meet program criteria. Maria Alejandra is eligible for the Integrated Behavioral Health (IB) Care Coordination. PLAN Discussed with Maria Alejandra that I will speak with Dr. Jurado on Sunday and then call her for follow-up on next steps. Maria Alejandra Gutierrez Shimon agreed to participation and was provided with instructions for contacting thehealthcare team, including my contact information, and encouraged to call with questions or concerns. Next contact: May 19 at 3:30 pm by Phone Call. Disposition/Recommendation: self-care is appropriate at this time, patient encouraged to call back with questions Education: patient/caller able to teach back Caller agreeable to plan of care: yes The following references were used: nursing clinical judgement documented in this encounter Miscellaneous Notes * Telephone Encounter - Fouzia Saldana R.N. - 05/26/2024 4:52 PM CDT Coordinated care with [facility]. Appointment with Basilia Hargrove today at 3:[address] Bhagat on June 24 at 1 pm. documented in this encounter Plan of Treatment Upcoming Encounters Date Type Department Care Team (Late st Contact Info) Description 08/12/2024 1:30 PM CDT Office Visit Department of Family Medicine, [facility], in [place], [place] [address] [address] Annemarie Montiel M.D. [address] [phone] 08/27/2024 9:45 AM CDT Procedure visit Department of Neurology in [place], [place] [address] [address] Hipolito Babin M.D. [address] [phone] Scheduled Procedures Name Priority Associated Diagnoses Date/Ti me LIFT THIGH Excessive And Redundant Skin And Subcutaneous Tissue documented as of this encounter Visit Diagnoses Not on filedocumented in this encounter Additional Health Concerns Assessment Noted Time PHQ-9 Depression Total Score: 20 024 12:51 PM CDT documented as of this encounter Care Teams Marketing Analytics Analyst Relationship Specialty Start Date End Date Annemarie Montiel M.D. [address] [address] PCP - General 04/19/17 documented as of this encounter
--- OUTSIDE RECORDS SUMMARY | 2024-08-02 20:38 | XMS_ITS | Encounter Summary ---
Author Organization [facility] Address [address] [place] [address] Care Team Providers Care Extended Insurance Clerk Name Role Phone Annemarie Montiel M.D. Primary Care Provider [phone] [phone] Reason for Visit * Outpatient (Routine) - Closed Specialty Diagnoses / Procedures Referred By Ernst carvalho Referred To Contact Diagnoses Surgery Bariatric Status Post Annemarie Montiel M.D. [address] [address] [facility] Region Referral ID Status Reason Start Date Expiration Date Visits Re quested Visits Authorized [id number] Closed 03/24/2024 09/23/2025 1 1 Encounter Details Date Type Department Care Team (Late Contact Info) Description 05/01/2024 3:00 PM CDT Education Department of Family Medicine, [facility], in [place], [place] [address] [place] [phone] Annemarie Montiel M.D. [address] [place] [phone] Keisha Herrera, L.P.N. Surgery Bariatric Status Post Social History Tobacco Use Types Packs/Day Years Used Date Smoking Tobacco: Never Smokeless Tobacco: Never Alcohol Use Standard Drinks/Week Comments No 0 (1 standard drink = 0.6 oz pur e alcohol) [facility] Utilities Answer Date Recorded In the past 12 months has th e [employer], gas, oil, or water [employer] threatened to shut off services in your [...] with friends or relatives? 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 - 05/01/2024 3:00 PM CDT Patient identifiers were verified and the following medication was administered to the patient today: Cyanocobalamin (Vitamin B12). During this visit: Medication applied to: R upper abdomen Patient tolerated medication administration with no issues identified. documented in this encounter Plan of Treatment Upcoming Encounters Date Type Department Care Team (Late st Contact Info) Description 08/12/2024 1:30 PM CDT Office Visit Department of Family Medicine, [facility], in [place], [place] [address] [phone] Annemarie Montiel M.D. [address] [phone] 08/27/2024 9:45 AM CDT Procedure visit Department of Neurology in [place], [place] [address] [phone] Hipolito Babin M.D. [address] [phone] Scheduled Procedures Name Priority Associated Diagnoses Date/Ti me LIFT THIGH Excessive And Redundant Skin And Subcutaneous Tissue documented as of this encounter Visit Diagnoses Diagnosis Surgery Bariatric Status Post documented in this encounter Administered Medications Inactive Administered Medications - up to 3 most recent administrations Medication Order MAR Action Action Date Dose Rate Site cyanocobalamin 1,000 mcg/mL injection 1,000 mcg (VITAMIN B12) 1,000 mcg, subcutaneous, Once, On Sun03/25/24 at 0000, For 1 dose Given 05/01/2024 2:20 PM CDT 1,000 mcg Right Upper Abdomen documented in this encounter Additional Health Concerns Assessment Noted Time PHQ-9 Depression Total Score: 20 024 12:51 PM CDT documented as of this encounter Care Teams Extended Insurance Clerk Relationship Specialty Start Date End Date Annemarie Montiel M.D. [address] [phone] PCP - General 04/19/17 documented as of this encounter
--- OUTSIDE RECORDS SUMMARY | 2024-08-02 20:38 | XMS_ITS | Encounter Summary ---
Author Organization [facility] Address [address] [place] [address] Care Team Providers Care Emergency Management Consultant Name Role Phone Annemarie Montiel M.D. Primary Care Provider [phone] [phone] Reason for Referral * Outpatient (Routine) - Authorized Specialty Diagnoses / Procedures Referred By Contac t Referred To Contact Diagnoses Migraine Headache Chronic Migraine Procedures Botox for Chronic Migraine SD CHEMODENERV FACIAL TRIGEM NIDHI SD INJECTION,ONABOTULINUMTOXINA Hipolito Babin M.D. [address], [place] [address] [facility] Region Referral ID Status Reason Start Date Expiration Date V isits Requested Visits Authorized [id number] Authorized 08/27/2024 02/22/2025 4 3 * Medication Prior Authorization - Authorized Specialty Diagnoses / Procedures Referred By Contac t Referred To Contact Hipolito Babin M.D. [address], [place] [address] Referral ID Status Reason Start Date Expiration Date V isits Requested Visits Authorized [id number] Authorized 03/01/2024 05/30/2025 1 1 Reason for Visit * Outpatient (Routine) - Closed Specialty Diagnoses / Procedures Referred By Contac t Referred To Contact Neurology Diagnoses Migraine Headache HorstmanCuca APRN, C.N.PRodrigo, D.N.PRodrigo [address] [place] [address] [facility] Region Referral ID Status Reason Start Date Expiration Date V isits Requested Visits Authorized [id number] Closed Specialty Services Required 03/13/2024 09/12/2025 1 1 Encounter Details Date Type Department Care Team (Latest Contact Info) Description 05/29/2024 1:30 PM CDT Comprehensive Visit Department of Neurology in [place], [place] [address] [phone] Hipolito Babin M.D. [address] [address] Chronic Migraine (Primary Dx); Migraine Headache Social History Tobacco Use Types Packs/Day Years Used Date Smoking Tobacco: Never Smokeless Tobacco: Never Tobacco Cessation:Counseling Given: Not Answered Alcohol Use Standard Drinks/Week Comments No 0 (1 standard drink = 0.6 oz pur e alcohol) [facility] Utilities Answer Date Recorded In the past 12 months has e [employer], gas, oil, or water [employer] threatened to shut off services in your [...] with friends or relatives? 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 - 05/29/2024 1:30 PM CDT SUBJECTIVE CHIEF COMPLAINT / REASON FOR VISIT Maria Alejandra Robins is a 39 y.o. female who presents for evaluation of migraine headaches Referring provider Cuca Shaw APRN, C.N.P., D.N.P. HISTORY OF PRESENT ILLNESS Ms. Robins is a pleasant 39-year-old female with a history of migraine headaches who returns to [facility], Neurology to follow up in that regard. Please recall she was previously seen by Nakita Winter, M.P.H., in [place], having achieved goodrelief of her migraine headaches with Botox injections over the previous years. She was last seen for Botox injections in February of 2023, at which point, after Dr. Winter moved away, and her Botox injections were not continued. In that setting, she has had a gradual worsening of her migraine headaches to the point where now she essentially has a headache every day for 30 headache days a month with approximately 15-20 of them being severe. She has used topiramate which has been up-titrated to 100 mg b.i.d. which she has not found has proved effective in reducing her migraine frequency. She has tried a number of other preventive medications previously including duloxetine, beta- africa, tricyclic antidepressants, although this was quite a long time ago. In terms of her abortive therapy, she now uses rizatriptan after previously using Imitrex. She had severe side effects with Imitrex where she felt markedly more nauseous and drowsy. Rizatriptan makesher feel loopy but does not really have much effect on her migraines, unfortunately. She has never tried anti-CGRP abortive therapy such as Zyrtec or Ubrelvy. She has no recent head imaging, however, her overall headache quality has not necessarily changed from her lengthy history of migraine headaches. REVIEW OF SYSTEMS: REVIEW OF SYSTEMS OBJECTIVE PHYSICAL EXAM General: Female in her 30s, alert, attentive, no acute distress Vitals: BP 111/73, HR ninety-two Neuro: She is alert and interactive. Cranial nerves are grossly symmetric. She has antigravity strength all extremities with coordination with gsyfnf-eauv-tctkia testing intact without dysmetria. Reflexes normal and symmetric in the lower extremities. Casual gait is normal. For details of the neurologic examination, please see the neurologic examination form. ASSESSMENT / PLAN #1 Migraine Headache #2 Chronic Migraine I discussed my thoughts with Ms. Robins. Clearly, given her current headache frequency, topiramate 100 mg b.i.d. has been an insufficient treatment of her migraines. She had fairly good control ofmigraine headaches, having just 2-5 headache/severe headache days per month when on Botox injections, and I think returning to that given her severe migraine frequency and history would be reasonable. I have placed orders for Botox for chronic migraine with her first visit scheduled in the next 10-14 days. Depending on her response to Botox injections, we may be able to taper her topiramate. In terms of abortive therapy, she had side effects related to Imitrex and has also tried Maxalt which was also not really beneficial in terms of treating her migraines when they do occur. As such, I discussed discontinuing Maxalt and transitioning to an anti-CGRP abortive therapy, namely, Ubrelvy. I discussed that this medication is taken at the onset of migraine and then could be taken again 2 hours later if the medication is ineffective. Encouraged her to watch out for side effects of lightheadedness and nausea. The prescription does require prior authorization through her insurance, but given her trial of 2 previous triptans, this hopefully would be approved. She also had questions regarding tinting of her vehicle. She does have fairly profound light sensitivity as well as both of her children also suffer from migraines and also have light sensitivity, and they are frequent passengers in her car. In this setting, I do think she has a medical indication for front and rear window tinting to help mitigate the effects of sunlight on her migraines as well as her children's migraines. She could also consider applying tint to the windshield, although I will leave this up to her discretion. I plan to see her back in the coming weeks for Botox injections. Please see medical decision making for billing regarding this visit documented in this encounter Plan of Treatment Upcoming Encounters Date Type Department Care Team (Late st Contact Info) Description 08/12/2024 1:30 PM CDT Office Visit Department of Family Medicine, [facility], in [place], [place] [address] [address] Annemarie Montiel M.D. [address] [place] [phone] 08/27/2024 9:45 AM CDT Procedure visit Department of Neurology in [place], [place] [address] [place] [phone] Hipolito Babin M.D. [address] [phone] Scheduled Orders Name Type Priority Associated Diagnoses Orde r Schedule Botox for Chronic Migraine Procedures Routine Migraine Headache Chronic Migraine 3 months for 4 Occurrences starting 05/29/2024 until 08/29/2025 Scheduled Procedures Name Priority Associated Diagnoses Date/Ti me LIFT THIGH Excessive And Redundant Skin And Subcutaneous Tissue documented as of this encounter Visit Diagnoses Diagnosis Chronic Migraine- Primary Migraine Headache documented in this encounter Additional Health Concerns Assessment Noted Time PHQ-9 Depression Total Score: 20 024 12:51 PM CDT documented as of this encounter Care Teams Emergency Management Consultant Relationship Specialty Start Date End Date Annemarie Montiel M.D. [address] [phone] PCP - General 04/19/17 documented as of this encounter
--- OUTSIDE RECORDS SUMMARY | 2024-08-02 20:38 | XMS_ITS | Encounter Summary ---
Author Organization [facility] Address [address] [place] [address] Care Team Providers Care Civil Engineering Teacher Name Role Phone Annemarie Montiel M.D. Primary Care Provider +1 [phone] Reason for Visit * Reason Onset Date Comments urine symptom 07/11/2024 Encounter Details Date Type Department Care Team (Late st Contact Info) Description 07/11/2024 E-Visit Department of Family Medicine, [facility], in [place], [place] [address] [address] Annemarie Montiel M.D. [address] [phone] Labs Social History Tobacco Use Types Packs/Day Years Used Date Smoking Tobacco: Never Smokeless Tobacco: Never Alcohol Use Standard Drinks/Week Comments No 0 (1 standard drink = 0.6 oz pur e alcohol) [facility] Utilities Answer Date Recorded In the past 12 months has [employer], gas, oil, or water [employer] threatened to shut off services in your [...] with friends or relatives? 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 - 07/15/2024 7:06 AM CDT E-CARE ONLINE VISIT SUBJECTIVE Maria Alejandra Robins is a 39 y.o. female who initiated the following eVisit via portal message. Primary concerns/questions to be addressed include urinary cloudiness/odor. RESPONSE/RECOMMENDATIONS Norberto Bess The urinalysis came back cloudy but no evidence of urinary tract infection. No antibiotics are needed. As far as the need to hydrate, yes I think that is why you are having the cloudy urine. par The main thing right now would be to try to do a non carbonated electrolyte drink such as low sugarGatorade or Pedialyte. We do not do IV rehydration for this situation as it is better to use your gastrointestinal track. I can offer a follow-up appointment in person at clinic in a couple weeks if you need to get in sooner than August. Nicki Montiel M.D. , Department of Family Medicine [facility] #1 Symptom Urinary I spent a total of 7 minutes reviewing the patient???s prior medical records and current eVisit submission. documented in this encounter Plan of Treatment Upcoming Encounters Date Type Department Care Team (Late st Contact Info) Description 08/12/2024 1:30 PM CDT Office Visit Department of Family Medicine, [facility], in [place], [place] [address] [address] Annemarie Montiel M.D. [address] [phone] 08/27/2024 9:45 AM CDT Procedure visit Department of Neurology in [place], [place] [address] [phone] Hipolito Babin M.D. [address] [phone] Scheduled Procedures Name Priority Associated Diagnoses Date/Ti me LIFT THIGH Excessive And Redundant Skin And Subcutaneous Tissue documented as of this encounter Results * (ABNORMAL) Urinalysis with Microscopic if [...] 8.0 07/15/2024 2:49 PM CDT FB60 Specific [place] >=1.030 1.001 - 1.035 07/15/2024 2:49 PM CDT FB60 Urobilinogen 1.0 0.2 - 1.0 mg/dL 07/15/2024 2:49 PM CDT FB60 Urine (Urine, Midstream) 07/15/2024 2:40 PM CDT 07/15/2024 2:43 PM CDT Annemarie Montiel M.D. LAB URINE ORDERAB LES [facility] [address] [place] [address], [facility] FB60 [facility] [place] [address] [place] [address] * (ABNORMAL) Bacterial Culture, Aerobic + Susceptibility, [...] Montiel M.D. LAB MICROBIOLOGY - GENERAL ORDERABLES [facility] [address] [place] [address], [facility] MKTO [facility] [place] [address] [place] [address] documented in this encounter Visit Diagnoses Diagnosis Symptom Urinary- Primary documented in this encounter Additional Health Concerns Assessment Noted Time PHQ-9 Depression Total Score: 20 024 12:51 PM CDT documented as of this encounter Care Teams Civil Engineering Teacher Relationship Specialty Start Date End Date Annemarie Montiel M.D. [address] [place] [phone] PCP - General 04/19/17 documented as of this encounter
--- OUTSIDE RECORDS SUMMARY | 2024-08-02 20:38 | XMS_ITS | Encounter Summary ---
Author Organization [facility] Address [address] [place] [address] Care Team Providers Care Chief Nuclear Medicine Technologist Name Role Phone Annemarie Montiel M.D. Primary Care Provider +1 [phone] Reason for Visit * Reason Comments Care Coordination [facility] Attempt #2 an d Portal Encounter Details Date Type Department Care Team (Latest Contact Info) Description 06/19/2024 Patient Outreach Department of Family Medicine, [facility], in [place], [place] [address] [address] Fouzia Saldana R.N. [address] [address] Care Coordination ([facility] Attempt #2 and Portal) Social History Tobacco Use Types Packs/Day Years Used Date Smoking Tobacco: Never Smokeless Tobacco: Never Alcohol Use Standard Drinks/Week Comments No 0 (1 standard drink = 0.6 oz pur e alcohol) [facility] Utilities Answer Date Recorded In the past 12 months has [employer], [employer], oil, or water [employer] threatened to shut off services in your [...] with friends or relatives? Never 03/29/2020 Attends Temple Services Not on file 03/29 Active Member [...] Date Recorded PHQ-2 Score 6 04/15/2024 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 [address] [address] 08/27/2024 9:45 AM CDT Procedure visit Department of Neurology in [place], [place] [address] [place] [address] Hipolito Babin M.D. [address], [place] [address] Scheduled Procedures Name Priority Associated Diagnoses Date/Ti me LIFT THIGH Excessive And Redundant Skin And Subcutaneous Tissue documented as of this encounter Visit Diagnoses Not on filedocumented in this encounter Additional Health Concerns Assessment Noted Time PHQ-9 Depression Total Score: 20 024 12:51 PM CDT documented as of this encounter Care Teams Chief Nuclear Medicine Technologist Relationship Specialty Start Date End Date Annemarie Montiel M.D. [address] [place] [address] PCP - General 04/19/17 documented as of this encounter
--- OUTSIDE RECORDS SUMMARY | 2024-08-02 20:38 | XMS_ITS | Encounter Summary ---
Author Organization [facility] Address [address] [place] [address] Care Team Providers Care Cream Dipper Name Role Phone Annemarie Montiel M.D. Primary Care Provider +1 [phone] Encounter Details Date Type Department Care Team (Late st Contact Info) Description 06/06/2024 10:50 AM CDT - 06/06/2024 11:59 PM CDT Hospital Encounter Department of Laboratory Medicine in [place], [place] [address] [address] Annemarie Montiel M.D. [address] [address] Exposure Sexually Transmitted Disease Discharge Disposition: Home or Self Care Social History Tobacco Use Types Packs/Day Years Used Date Smoking Tobacco: Never Smokeless Tobacco: Never Alcohol Use Standard Drinks/Week Comments No 0 (1 standard drink = 0.6 oz pur e alcohol) [facility] Utilities Answer Date Recorded In the past 12 months has e [employer] gas, oil, or water [employer] threatened to shut off services in your [...] with friends or relatives? Never 03/29/2020 Attends Latter Day Services Not on file 03/29 Active Member [...] Answer Date Recorded PHQ-2 Score 6 04/15/2024 [facility] of Occupat ional Health - Occupational Stress [...] medical appointments or from getting medications? No 12/1 04/2023 In the past 12 months, has l [...] Sex Assigned at Female 10/16/2018 10:53 AM CONSTRUCTION PROJECT ASSISTANT Gender Identity Female 10/16/2018 10:53 AM CONSTRUCTION PROJECT ASSISTANT Sexual Orientation Straight 06/27/2023 1: 38 PM CDT documented as of this encounter Medications at Time of Discharge Medication Sig Dispensed Refills Start Date End Date baclofen (LIORESAL) 10 mg tablet Take 10 mg by mouth 2 (two) times a day as needed. 08/21/2022 buPROPion XL (WELLBUTRIN XL) 150 mg 24 hr tablet Take 1 tablet (150 mg total) by mouth daily. 90 tablet 4 03/18/2024 buPROPion XL (WELLBUTRIN XL) 300 mg 24 hr tablet Take 1 tablet (300 mg total) by mouth daily. 90 tablet 4 03/18/2024 cranberry fruit extract (CRANBERRY EXTRACT ORAL) Take 1 capsule by mouth daily. cyanocobalamin (VITAMIN B12) 1,000 mcg/mL injectionIndications :Surgery Bariatric Status Post Inject 1 mL (1,000 mcg total) under the skin every 30 (thirty) days. One injection per month with 1st dose to occur approximately 30 days after your dose at the nurse clinic 1 mL 11 04/21/2024 diclofenac sodium (VOLTAREN) 1 % gelIndications:Pain Hand Bilateral Apply 2 g topically 4 (four) times a day. Apply to hands. 100 g 1 03/13/2024 furosemide (Lasix) 20 mg tablet TAKE 1 TABLET BY MOUTH EVERY DAY NEEDED FOR LEG EDEMA 30 tablet 3 06/03/2024 LORazepam (ATIVAN) 1 mg tablet Take 1 tablet (1 mg total) by mouth daily as needed for anxiety. 30 tablet 2 03/18/2024 medical cannabis capsule 07/24/2022 modafiniL (PROVIGIL) 200 mg tabletIndications:Na rcolepsy (HCC) Take 2 tablets (400 mg total) by mouth daily. 180 tablet 1 03/18/2024 nzxraozaeero-Er-pbgy -minerals (MULTIPLE VITAMIN, WOMENS) tablet Take 1 tablet by mouth daily. pramipexole (MIRAPEX) 0.125 mg tabletIndications:Re stless Leg Syndrome TAKE 1 TABLET (0.125 MG TOTAL) BY MOUTH AT BEDTIME. 2-3 HOURS BEFORE BED OPTIMALLY. 90 tablet 3 03/11/2024 syringe with needle, safety (Easy Touch SheathLock Syrg-Ndl) 3 mL 25 gauge x 5/8 syringeIndications:S urgery Bariatric Status Post For use once monthly as directed to administer B12 injection subcutaneous 1 each 11 04/21/2024 ubrogepant (Ubrelvy) 100 mg tablet tablet Take 1 tablet (100 mg total) by mouth as needed for migraine. May repeat dose once after at least 2 hours if migraine is unresolved. Do not exceed 200 mg in 24 hours. 10 each 3 05/29/2024 valACYclovir (VALTREX) 1000 mg tabletIndications:He rpes Genitalis Take 1 tablet (1,000 mg total) by mouth daily. 90 tablet 3 03/18/2024 nitrofurantoin monohydrate (MACROBID) 100 mg capsule Take 100 mg by mouth 2 (two) times a day. 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 For migraine prevention and weight loss 60 tablet 3 03/18/2024 07/09/2024 documented as of this encounter Plan of Treatment Upcoming Encounters Date Type Department Care Team (Late st Contact Info) Description 08/12/2024 1:30 PM CDT Office Visit Department of Family Medicine, [facility], in [place], [place] [address] [address] Annemarie Montiel M.D. [address] [place] [address] 08/27/2024 9:45 AM CDT Procedure visit Department of Neurology in [place], [place] [address], [place] [address] Hipolito Babin M.D. [address] [place] [address] Scheduled Procedures Name Priority Associated Diagnoses Date/Ti me LIFT THIGH Excessive And Redundant Skin And Subcutaneous Tissue documented as of this encounter Procedures Procedure Name Priority Date/Time Associated Diagnosis Comments HIV-1/-2 AG AND AB SCREEN, PLASMA Routine 06/06/2024 11:13 AM CDT Exposure Sexually Transmitted Disease SYPHILIS TOTAL AB W/ REFLEX S Routine 06/06/2024 11:13 AM CDT Exposure Sexually Transmitted Disease HCV AB SCRN W/REFLEX TO HCV PCR, S Routine 06/06/2024 11:13 AM CDT Exposure Sexually Transmitted Disease documented in this encounter Results * Syphilis Total Antibody with Reflex, Serum (06/06/2024 11:13 AM CDT) Syphilis Total Ab w/ Reflex Nonreactive Nonreactive 06/08/2024 10:42 AM CDT [facility] Comment: No serologic evidence of infection with T. pallidum (syphilis). ??Repeat testing may be considered in patients with suspected acute or primary syphilis in 2-4 weeks. For additional information on interpretation of the syphilis reverse algorithm and results, see: [email or web address] all children's hospitalClickshare Service Corp.s.com/ it-mmfiles/Syphilis_Serology_Algorithm.pdf Blood (Blood, Venous) 06/06/2024 11:13 AM CDT 06/07/2024 3:49 PM CDT Annemarie Montiel M.D. LAB BLOOD ADD-ON Performing Organization Address City/[facility]/ZIP Co de Phone Number [facility] [address] [place] [address], [facility] in [place] [address] [place] [address] * HCV Ab Scrn w/Reflex to HCV PCR, Serum (06/06/2024 11:13 AM CDT) HCV Ab Screen, S Negative Negative 06/06/2024 2:37 PM CDT [facility] Blood (Blood, Venous) 06/06/2024 11:13 AM CDT 06/06/2024 1:53 PM CDT Narrative [facility] - 06/06/2024 2:37 PM CDT Specimen Information: Specimen ID: [id number] Specimen Type: Blood Specimen Collection Start Date: 06/06/2024 11:13 AM Specimen Received Date: 06/06/2024 ??1:53 PM Specimen ID: [id number] Specimen Type: Blood Specimen Collection Start Date: 06/06/2024 11:13 AM Specimen Received Date: 06/06/2024 ??2:38 PM Annemarie Montiel M.D. LAB MICROBIOLOGY - BLOOD ORDERABLES [facility] [address] [place] [address], [facility] MKTO [facility] in [place] [address] [place] [address] * HIV-1/-2 Ag and Ab Screen, Plasma (06/06/2024 11:13 AM CDT) HIV Ag/Ab Screen, P Negative Negative 06/08/2024 10:48 AM CDT [facility] Comment: Negative result does not rule out [...] Montiel M.D. LAB MICROBIOLOGY - BLOOD ORDERABLES [facility] [address] [address], [facility] in [address] [address] documented in this encounter Visit Diagnoses Diagnosis Exposure Sexually Transmitted Disease documented in this encounter Additional Health Concerns Assessment Noted Time PHQ-9 Depression Total Score: 20 024 12:51 PM CDT documented as of this encounter Care Teams Cream Dipper Relationship Specialty Start Date End Date Annemarie Montiel M.D. [address] [address] PCP - General 04/19/17 documented as of this encounter
--- OUTSIDE RECORDS SUMMARY | 2024-08-02 20:38 | XMS_ITS | Encounter Summary ---
Author Organization [facility] Address [address] [place] [address] Care Team Providers Care Kicking Machine Operator Name Role Phone Annemarie Montiel M.D. Primary Care Provider [phone] [phone] Reason for Referral * Outpatient (Routine) - Closed Specialty Diagnoses / Procedures Referred By Ernst carvalho Referred To Contact Diagnoses Surgery Bariatric Status Post Annemarie Montiel M.D. [address] [address] [facility] Region Referral ID Status Reason Start Date Expiration Date Visits Re quested Visits Authorized [id number] Closed 03/24/2024 09/23/2025 1 1 Encounter Details Date Type Department Care Team (Late st Contact Info) Description 03/24/2024 Clinical Communication Department of Family Medicine, [facility], in [place], [place] [address] [address] Annemarie Montiel M.D. [address] [place] [address] Social History Tobacco Use Types Packs/Day Years Used Date Smoking Tobacco: Never Smokeless Tobacco: Never Alcohol Use Standard Drinks/Week Comments No 0 (1 standard drink = 0.6 oz pur e alcohol) [facility] Utilities Answer Date Recorded In the past 12 months has [employer], oil, or water [employer] threatened to shut off services in your [...] with friends or relatives? Never 03/29/2020 Attends Judaism Services Not on file 03/29 Active Member [...] Answer Date Recorded PHQ-2 Score 6 04/15/[address] [facility] [place] of Occupat ional Health - Occupational Stress [...] Sex Assigned at Female 10/16/2018 10:53 AM CERTIFIED MASTER SAFECRACKER Gender Identity Female 10/16/2018 10:53 AM CERTIFIED MASTER SAFECRACKER Sexual Orientation Straight 06/27/2023 1: 38 PM CDT documented as of this encounter Plan of Treatment Upcoming Encounters Date Type Department Care Team (Late st Contact Info) Description 08/12/2024 1:30 PM CDT Office Visit Department of Family Medicine, [facility], in [place], [place] [address] [address] Annemarie Montiel M.D. [address] [place] [address] 08/27/2024 9:45 AM CDT Procedure visit Department of Neurology in [place], [place] [address] [place] [address] Hipolito Babin M.D. [address] [place] [address] Scheduled Procedures Name Priority Associated Diagnoses Date/Ti me LIFT THIGH Excessive And Redundant Skin And Subcutaneous Tissue Scheduled Referrals Name Type Priority Associated Diagnoses Order Schedule Primary Care nurse visit (clinic) - [facility] Region; Self-injection; Subcutaneous (SQ); Medication injection (order medication); B12 Outpatient Referral Routine Surgery Bariatric Status Post Expected: 03/24/2024, Expires: 06/24/2025 documented as of this encounter Visit Diagnoses Diagnosis Surgery Bariatric Status Post- Primary documented in this encounter Additional Health Concerns Assessment Noted Time PHQ-9 Depression Total Score: 17 024 9:35 AM CERTIFIED MASTER SAFECRACKER documented as of this encounter Care Teams Kicking Machine Operator Relationship Specialty Start Date End Date Annemarie Montiel M.D. [address] [address] PCP - General 04/19/17 documented as of this encounter
--- OUTSIDE RECORDS SUMMARY | 2024-08-02 20:38 | XMS_ITS | Encounter Summary ---
Author Organization [facility] Address [address] [place] [address] Care Team Providers Care Citrus Fruit Colorer Name Role Phone Annemarie Montiel M.D. Primary Care Provider [phone] -[phone] Reason for Visit * Reason Comments Med Refill Encounter Details Date Type Department Care Team (Late st Contact Info) Description 06/02/2024 Refill Department of Family Medicine, [facility], in [place], [place] [address] [address] Annemarie Montiel M.D. [address] [place] [address] Med Refill Social History Tobacco Use Types Packs/Day Years Used Date Smoking Tobacco: Never Smokeless Tobacco: Never Alcohol Use Standard Drinks/Week Comments No 0 (1 standard drink = 0.6 oz pur e alcohol) [facility] Utilities Answer Date Recorded In the past 12 months has [employer], [employer], or water [employer] Concier[employer] threatened to shut off services in your [...] with friends or relatives? 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 [address], [place] [address] 08/27/2024 9:45 AM CDT Procedure visit Department of Neurology in [place], [place] [address], [place] [address] Hipolito Babin M.D. [address] [place] [address] Scheduled Procedures Name Priority Associated Diagnoses Date/Ti me LIFT THIGH Excessive And Redundant Skin And Subcutaneous Tissue documented as of this encounter Visit Diagnoses Not on filedocumented in this encounter Additional Health Concerns Assessment Noted Time PHQ-9 Depression Total Score: 20 024 12:51 PM CDT documented as of this encounter Care Teams Citrus Fruit Colorer Relationship Specialty Start Date End Date Annemarie Montiel M.D. [address] [phone] PCP - General 04/19/17 documented as of this encounter
--- OUTSIDE RECORDS SUMMARY | 2024-08-02 20:38 | XMS_ITS | Encounter Summary ---
Author Organization [facility] Address [address] [place] [address] Care Team Providers Care Certified Nurse Aide Name Role Phone Annemarie Montiel M.D. Primary Care Provider +1 -[phone] Reason for Visit * Reason Onset Date Comments STI Screening 06/05/2024 Encounter Details Date Type Department Care Team (Late st Contact Info) Description 06/05/2024 Nurse Triage Department of Family Medicine, [facility], in [place], [place] [address] [phone] Tammy Wei, RRodrigoNRodrigo [address] [place] [address] STI Screening Social History Tobacco Use Types Packs/Day Years Used Date Smoking Tobacco: Never Smokeless Tobacco: Never Alcohol Use Standard Drinks/Week Comments No 0 (1 standard drink = 0.6 oz pur e alcohol) [facility] Utilities Answer Date Recorded In the past 12 months has [facility] [employer], gas, oil, or water [employer] threatened to shut off services in your [...] with friends or relatives? Never 03/29/2020 Attends Confucianist Services Not on file 03/29 Active Member [...] Answer Date Recorded PHQ-2 Score 6 04/15/2024 [facility] of Occupat ional Health - [...] Sex Assigned at Female 10/16/2018 10:53 AM TABLEAU ANALYST Gender Identity Female 10/16/2018 10:53 AM TABLEAU ANALYST Sexual Orientation Straight 06/27/2023 1: 38 PM CDT documented as of this encounter Miscellaneous Notes * Telephone Encounter - Tammy Wei R.N. - 06/05/2024 4:31 PM CDT Chief Complaint / Reason for Call Patient is a 39 y.o. female calling regarding STI Screening. Assessment Concern: Patient is requesting STI testing. She meets RN protocol. The recommended disposition is The following treatment or testing is indicated by a health care provider in the next 3 daysPatient was provided scheduling phone number, plan of care, and transferred to scheduling per current regional process. CARE POINTS REVIEWED It is advised that you not urinate for at least 1 hour prior to providing a urine specimen for STI testing. documented in this encounter Plan of Treatment Upcoming Encounters Date Type Department Care Team (Late st Contact Info) Description 08/12/2024 1:30 PM CDT Office Visit Department of Family Medicine, [facility], in [place], [place] [address], [place] [address] Annemarie Montiel M.D. [address] [place] [address] 08/27/2024 9:45 AM CDT Procedure visit Department of Neurology in [place], [place] [address] [place] [address] Hipolito Babin M.D. [address] [place] [address] Scheduled Procedures Name Priority Associated Diagnoses Date/Ti me LIFT THIGH Excessive And Redundant Skin And Subcutaneous Tissue documented as of this encounter Results * Syphilis Total Antibody [...] the syphilis reverse algorithm and results, see: [email or web address]_Serology_Algorithm.pdf Blood (Blood, Venous) 06/06/2024 11:13 AM CDT 06/07/2024 3:49 PM CDT Annemarie Montiel M.D. LAB BLOOD ADD-ON [facility] [address] [place] [address], [facility] [address] [address] * HCV Ab Scrn w/Reflex to HCV PCR, Serum (06/06/2024 11:13 AM CDT) HCV Ab Screen, S Negative Negative 06/06/2024 2:37 PM CDT [facility] Blood (Blood, Venous) 06/06/2024 11:13 AM CDT 06/06/2024 1:53 PM CDT Narrative [facility] - 06/06/2024 2:37 PM CDT Specimen Information: Specimen ID: [id number] Specimen Type: Blood Specimen Collection Start Date: 06/06/2024 11:13 AM Specimen Received Date: 06/06/2024 ??1:53 PM Specimen ID: [id number] Specimen Type: Blood Specimen Collection Start Date: 06/06/2024 11:13 AM Specimen Received Date: 06/06/2024 ??2:38 PM Annemarie Montiel M.D. LAB MICROBIOLOGY - BLOOD ORDERABLES [facility] [address] [place] [address], [facility] [place] in [place] [address] [place] [address] * HIV-1/-2 Ag and Ab Screen, Plasma [...] MICROBIOLOGY - BLOOD ORDERABLES Performing Organization Address City/State/[facility] Co de Phone Number [facility] [address] [place] [address], [facility] in [address] [address] * Chlamydia / Gonorrhoeae Amplified RNA (06/06/2024 [...] Montiel M.D. LAB MICROBIOLOGY - GENERAL ORDERABLES [facility] [address] [place] [address], [facility] [address] [place] [address] documented in this encounter Visit Diagnoses Diagnosis Exposure Sexually Transmitted Disease- Primary Exposure Sexually Transmitted Disease documented in this encounter Additional Health Concerns Assessment Noted Time PHQ-9 Depression Total Score: 20 024 12:51 PM CDT documented as of this encounter Care Teams Certified Nurse Aide Relationship Specialty Start Date End Date Annemarie Montiel M.D. [address] [phone] PCP - General 04/19/17 documented as of this encounter
--- OUTSIDE RECORDS SUMMARY | 2024-08-02 20:38 | XMS_ITS | Encounter Summary ---
Author Organization [facility] Address [address] [place] [address] Care Team Providers Care Clinical Support Nurse Name Role Phone Annemarie Montiel M.D. Primary Care Provider +1 [phone] Encounter Details Date Type Department Care Team (Late st Contact Info) Description 07/15/2024 1:30 PM CDT - 07/15/2024 11:59 PM CDT Hospital Encounter Department of Laboratory Medicine in [place], [place] [address] [place] [phone] Annemarie Montiel M.D. [address], [place] [phone] Symptom Urinary Discharge Disposition: Home or Self Care Social History Tobacco Use Types Packs/Day Years Used Date Smoking Tobacco: Never Smokeless Tobacco: Never Alcohol Use Standard Drinks/Week Comments No 0 (1 standard drink = 0.6 oz pur e alcohol) [facility] Utilities Answer Date Recorded In the past 12 months has [employer], oil, or water [employer] threatened to shut off services in your [...] with friends or relatives? Never 03/29/2020 Attends Taoism Services Not on file 03/29 Active Member [...] Answer Date Recorded PHQ-2 Score 6 04/15/2024 [facility] of Occupat ional Health - Occupational Stress [...] Sex Assigned at Female 10/16/2018 10:53 AM ACCOUNTING SOFTWARE SPECIALIST Gender Identity Female 10/16/2018 10:53 AM ACCOUNTING SOFTWARE SPECIALIST Sexual Orientation Straight 06/27/2023 1: 38 PM [...] by mouth daily. 180 tablet 1 03/18/2024 qrnzgbtywurv-Lb-edcf -minerals (MULTIPLE VITAMIN, WOMENS) tablet Take 1 [...] B12 injection subcutaneous 1 each 11 04/21/2024 topiramate (Topamax) 100 mg tabletIndications:Ch ronic Migraine Without Aura Not Intractable Without Status Migrainosus TAKE 1 TABLET BY MOUTH TWO TIMES A DAY FOR MIGRAINE PREVENTION AND WEIGHT LOSS. INSURANCE LIMITS TO 30 DAYS 60 tablet 3 07/09/2024 ubrogepant (Ubrelvy) 100 mg tablet tablet Take [...] day. As needed for UTI 08/31/2023 07/16/2024 documented as of this encounter Plan of Treatment Upcoming Encounters Date Type Department Care Team (Late st Contact Info) Description 08/12/2024 1:30 PM CDT Office Visit Department of Family Medicine, [facility], in [place], [place] [address] [place] [address] Annemarie Montiel M.D. [address] [place] [address] 08/27/2024 9:45 AM CDT Procedure visit Department of Neurology in [place], [place] [address] [place] [address] Hipolito Babin M.D. [address] [place] [address] Scheduled Procedures Name Priority Associated Diagnoses Date/Ti me LIFT THIGH Excessive And Redundant Skin And Subcutaneous Tissue documented as of this encounter Procedures Procedure Name Priority Date/Time Associated Diagnosis Comments URINALYSIS WITH MICROSCOPIC IF INDICATED, U Routine 07/15/2024 2:40 PM CDT Symptom Urinary ND URINALYSIS AUTO W MICRO Routine 07/15/2024 2:40 PM CDT BACTERIAL CULTURE, AEROBIC + SUSC, URINE Routine 07/15/2024 2:40 PM CDT Symptom Urinary documented in this encounter Results * Microscopic Manual (07/15/2024 2:40 PM CDT) [...] Annemarie Montiel M.D. LAB URINE ORDERAB LES [facility] [address] [place] [address], [facility] FB60 [facility] [place] [address] [place] [address] * (ABNORMAL) Urinalysis with Microscopic if Indicated [...] 8.0 07/15/2024 2:49 PM CDT FB60 Specific [place] >=1.030 1.001 - 1.035 07/15/2024 2:49 PM CDT FB60 Urobilinogen 1.0 0.2 - 1.0 mg/dL 07/15/2024 2:49 PM CDT FB60 Urine (Urine, Midstream) 07/15/2024 2:40 PM CDT 07/15/2024 2:43 PM CDT Annemarie Montiel M.D. LAB URINE ORDERAB LES Performing Organization Address City/[facility]/ZIP Co de Phone Number [facility] [address] [place] [address], [facility] FB60 [facility] [place] [address] [facility] [place] [address] * (ABNORMAL) Bacterial Culture, Aerobic + Susceptibility, [...] <=1 mcg/mL: Susceptible Escherichia coli Ceftriaxone SUSCEPTIBILITY, MEY (MCG/ML) <=1 mcg/mL: Susceptible Escherichia coli Cefepime [...] Montiel M.D. LAB MICROBIOLOGY - GENERAL ORDERABLES [facility] [address] [place] [address], [facility] MKTO [facility] [place] [address] [place] [address] documented in this encounter Visit Diagnoses Diagnosis Symptom Urinary documented in this encounter Additional Health Concerns Assessment Noted Time PHQ-9 Depression Total Score: 20 024 12:51 PM CDT documented as of this encounter Care Teams Clinical Support Nurse Relationship Specialty Start Date End Date Annemarie Montiel M.D. [address] [phone] PCP - General 04/19/17 documented as of this encounter
--- OUTSIDE RECORDS SUMMARY | 2024-08-02 20:38 | XMS_ITS | Encounter Summary ---
Author Organization [facility] Address [address] [place] [address] Care Team Providers Care Sap Payroll Consultant Name Role Phone Annemarie Montiel M.D. Primary Care Provider [phone] [phone] Reason for Visit * Reason Comments Med Refill Encounter Details Date Type Department Care Team (Late st Contact Info) Description 07/08/2024 Refill Department of Family Medicine, [facility], in [place], [place] [address] [address] Annemarie Montiel M.D. [address] [place] [address] Med Refill Social History Tobacco Use Types Packs/Day Years Used Date Smoking Tobacco: Never Smokeless Tobacco: Never Alcohol Use Standard Drinks/Week Comments No 0 (1 standard drink = 0.6 oz pur e alcohol) [facility] Utilities Answer Date Recorded In the past 12 months has [employer], [employer], or water [employer] threatened to shut off services in your [...] Answer Date Recorded PHQ-2 Score 6 04/15/2024 [facility] [place] of Occupat ional Health - Occupational Stress [...] Sex Assigned at Female 10/16/2018 10:53 AM PRODUCT MGMT DEV MANAGER Gender Identity Female 10/16/2018 10:53 AM PRODUCT MGMT DEV MANAGER Sexual Orientation Straight 06/27/2023 1: 38 PM CDT documented as of this encounter Plan of Treatment Upcoming Encounters Date Type Department Care Team (Late st Contact Info) Description 08/12/2024 1:30 PM CDT Office Visit Department of Family Medicine, [facility], in [place], [place] [address] [place] [address] Annemarie Montiel M.D. [address] [address] 08/27/2024 9:45 AM CDT Procedure visit Department of Neurology in [place], [place] [address] [address] Hipolito Babin M.D. [address], [place] [address] Scheduled Procedures Name Priority Associated Diagnoses Date/Ti me LIFT THIGH Excessive And Redundant Skin And Subcutaneous Tissue documented as of this encounter Visit Diagnoses Diagnosis Chronic Migraine Without Aura Not Intractable Without Status Migrainosus documented in this encounter Additional Health Concerns Assessment Noted Time PHQ-9 Depression Total Score: 20 024 12:51 PM CDT documented as of this encounter Care Teams Sap Payroll Consultant Relationship Specialty Start Date End Date Annemarie Montiel M.D. [address] [phone] PCP - General 04/19/17 documented as of this encounter
--- OUTSIDE RECORDS SUMMARY | 2024-08-02 20:38 | XMS_ITS | Encounter Summary ---
Author Organization [facility] Address [address] [place] [address] Care Team Providers Care Education Program Specialist Name Role Phone Annemarie Montiel M.D. Primary Care Provider +1 [phone] Encounter Details Date Type Department Care Team (Late st Contact Info) Description 06/06/2024 10:50 AM CDT Hospital Encounter Department of Laboratory Medicine in [place], [place] [address] [address] Annemarie Montiel M.D. [address], [place] [address] Exposure Sexually Transmitted Disease Discharge Disposition: Home or Self Care Social History Tobacco Use Types Packs/Day Years Used Date Smoking Tobacco: Never Smokeless Tobacco: Never Alcohol Use Standard Drinks/Week Comments No 0 (1 standard drink = 0.6 oz pur e alcohol) [facility] Utilities Answer Date Recorded In the past 12 months has [facility] [employer], oil, or water [employer] threatened to shut off services in your [...] with friends or relatives? Never 03/29/2020 Attends Yazidi Services Not on file 03/29 Active Member [...] Answer Date Recorded PHQ-2 Score 6 04/15/2024 [facility] [place] of Occupat ional Health - Occupational Stress [...] Sex Assigned at Female 10/16/2018 10:53 AM WILDLIFE MANAGEMENT PROFESSOR Gender Identity Female 10/16/2018 10:53 AM WILDLIFE MANAGEMENT PROFESSOR Sexual Orientation Straight 06/27/2023 1: 38 PM [...] by mouth daily. 180 tablet 1 03/18/2024 xgdyecoprjuz-Xl-lqez -minerals (MULTIPLE VITAMIN, WOMENS) tablet Take 1 [...] CDT Office Visit Department of Family Medicine, [facility], in [place], [place] [address] [place] [address] Annemarie Montiel M.D. [address] [place] [address] 08/27/2024 9:45 AM CDT Procedure visit Department of Neurology in [place], [place] [address] [place] [address] Hipolito Babin M.D. [address] [place] [address] Scheduled Procedures Name Priority Associated Diagnoses Date/Ti me LIFT THIGH Excessive And Redundant Skin And Subcutaneous Tissue documented as of this encounter Procedures Procedure Name Priority Date/Time Associated Diagnosis Comments CHLAMYDIA/GONORRHOE AE AMPLIFIED RNA Routine 06/06/2024 11:10 AM CDT Exposure Sexually Transmitted Disease documented in this encounter Results * Chlamydia / Gonorrhoeae Amplified RNA (06/06/2024 [...] - GENERAL ORDERABLES [facility] [address] [place] [address], [facility] MKTO [facility] [address] documented in this encounter Visit Diagnoses Diagnosis Exposure Sexually Transmitted Disease documented in this encounter Additional Health Concerns Assessment Noted Time PHQ-9 Depression Total Score: 20 024 12:51 PM CDT documented as of this encounter Care Teams Education Program Specialist Relationship Specialty Start Date End Date Annemarie Montiel M.D. [address] [place] [address] PCP - General 04/19/17 documented as of this encounter
--- OUTSIDE RECORDS SUMMARY | 2024-08-02 20:38 | XMS_ITS | Encounter Summary ---
Author Organization [facility] Address [address] [place] [address] Care Team Providers Care News Videographer Name Role Phone Annemarie Montiel M.D. Primary Care Provider [phone] [phone] Reason for Visit * Reason Comments Care Coordination [facility] CC Follow Up Encounter Details Date Type Department Care Team (Latest Contact Info) Description 05/30/2024 Patient Outreach Department of Family Medicine, [facility], in [place], [place] [address] [address] Fouzia Saldana R.N. [address] [address] Care Coordination ([facility] CC Follow Up) Social History Tobacco Use Types Packs/Day Years Used Date Smoking Tobacco: Never Smokeless Tobacco: Never Alcohol Use Standard Drinks/Week Comments No 0 (1 standard drink = 0.6 oz pur e alcohol) [facility] Utilities Answer Date Recorded In the past 12 months has [facility] [employer], [employer], oil, or water [employer] threatened to shut off services in [...] with friends or relatives? Never 03/29/2020 Attends [employer] Not on file 03/29 Active Member [...] Date Recorded PHQ-2 Score 6 04/15/2024 [facility] [place] of Occupat ional Health - Occupational Stress [...] Sex Assigned at Female 10/16/2018 10:53 AM SMALL BUSINESS SALES REPRESENTATIVE Gender Identity Female 10/16/2018 10:53 AM SMALL BUSINESS SALES REPRESENTATIVE Sexual Orientation Straight 06/27/2023 1: 38 PM CDT documented as of this encounter Progress Notes * Fouzia Saldana, RRodrigoN. - 05/30/2024 12:30 PM CDT SUBJECTIVE CHIEF COMPLAINT / REASON FOR CALL Care Coordination ([facility] CC Follow Up) Information Discussed Maria Alejandra contacted the police on Sunday and her son was transported by ambulance to [facility] for[facility]. They are considering residential treatment. She is concerned if a CHIPS (Children in Need of Protection or Services) case is open this could jeopardize the custody of her two other children being taken from them. She also shares that her son was recently kidnapped, so they are currently working with an research investigator. She is unsure where to find additional services or legal advice. Encouraged her to speak with the psychiatric social worker supervisor at [facility]. Reviewed psychiatry appointment. Shared legal resource. Follow up in 1week. PLAN Disposition/Recommendation: self-care is appropriate at this time, patient encouraged to call back with questions Information/Education: patient/caller able to teach back Caller agreeable to plan of care: yes The following references were used: nursing clinical judgement documented in this encounter Plan of Treatment Upcoming Encounters Date Type Department Care Team (Late st Contact Info) Description 08/12/2024 1:30 PM CDT Office Visit Department of Family Medicine, [facility], in [place], [place] [address] [address] Annemarie Montiel M.D. [address] [address] 08/27/2024 9:45 AM CDT Procedure visit Department of Neurology in [place], [place] [address] [address] Hipolito Babin M.D. [address] [address] Scheduled Procedures Name Priority Associated Diagnoses Date/Ti me LIFT THIGH Excessive And Redundant Skin And Subcutaneous Tissue documented as of this encounter Visit Diagnoses Not on filedocumented in this encounter Additional Health Concerns Assessment Noted Time PHQ-9 Depression Total Score: 20 04/15/ 024 12:51 PM CDT documented as of this encounter Care Teams News Videographer Relationship Specialty Start Date End Date Annemarie Montiel M.D. [address] [address] PCP - General 04/19/17 documented as of this encounter
--- OUTSIDE RECORDS SUMMARY | 2024-08-02 20:38 | XMS_ITS | Encounter Summary ---
Author Organization [facility] Address [address] [place] [address] Care Team Providers Care Ball Warper Tender Name Role Phone Annemarie Montiel M.D. Primary Care Provider [phone] [phone] Reason for Visit * Reason Comments Care Coordination Referral: Psychiatry Encounter Details Date Type Department Care Team (Latest Contact Info) Description 05/26/2024 Patient Outreach Department of Family Medicine, [facility], in [place], [place] [address] [address] Fouzia Saldana R.N. [address] [address] Care Coordination (Referral: Psychiatry) Social History Tobacco Use Types Packs/Day Years Used Date Smoking Tobacco: Never Smokeless Tobacco: Never Alcohol Use Standard Drinks/Week Comments No 0 (1 standard drink = 0.6 oz pur e alcohol) [facility] Utilities Answer Date Recorded In the past 12 months has [facility] [employer], gas, oil, or water [employer] threatened to shut off services in your [...] with friends or relatives? Never 03/29/2020 Attends Hoahaoism Services Not on file 03/29 Active Member [...] Answer Date Recorded PHQ-2 Score 6 04/15/2024 [facility] [place] of Occupat ional Health - Occupational Stress [...] Sex Assigned at Female 10/16/2018 10:53 AM MARKET RISK MANAGER Gender Identity Female 10/16/2018 10:53 AM MARKET RISK MANAGER Sexual Orientation Straight 06/27/2023 1: 38 PM CDT documented as of this encounter Plan of Treatment Upcoming Encounters Date Type Department Care Team (Late st Contact Info) Description 08/12/2024 1:30 PM CDT Office Visit Department of Family Medicine, [facility], in [place], [place] [address] [address] Annemarie Montiel M.D. [address] [address] 08/27/2024 9:45 AM CDT Procedure visit Department of Neurology in [place], [place] [address], [place] [address] Hipolito Babin M.D. [address] [address] Scheduled Procedures Name Priority Associated Diagnoses Date/Ti me LIFT THIGH Excessive And Redundant Skin And Subcutaneous Tissue documented as of this encounter Visit Diagnoses Not on filedocumented in this encounter Additional Health Concerns Assessment Noted Time PHQ-9 Depression Total Score: 20 024 12:51 PM CDT documented as of this encounter Care Teams Ball Warper Tender Relationship Specialty Start Date End Date Annemarie Montiel M.D. [address] [place] [address] PCP - General 04/19/17 documented as of this encounter
--- OUTSIDE RECORDS SUMMARY | 2024-08-02 20:38 | XMS_ITS | Encounter Summary ---
Author Organization [facility] Address [address] [place] [address] Care Team Providers Care Emissions Testing And Repair Technician Name Role Phone Annemarie Montiel M.D. Primary Care Provider +1 -[phone] Encounter Details Date Type Department Care Team (Late st Contact Info) Description 05/01/2024 Orders Only Department of Family Medicine, [facility], in [place], [place] [address] [address] Annemarie Montiel M.D. [address], [place] [address] Social History Tobacco Use Types Packs/Day Years Used Date Smoking Tobacco: Never Smokeless Tobacco: Never Alcohol Use Standard Drinks/Week Comments No 0 (1 standard drink = 0.6 oz pur e alcohol) [facility] Utilities Answer Date Recorded In the past 12 months has [facility] [employer], [employer], oil, or water [employer] threatened to shut off services in your [...] with friends or relatives? Never 03/29/2020 Attends Mormon Services Not on file 03/29 Active Member [...] Answer Date Recorded PHQ-2 Score 6 04/15/2024 [facility] of Occupat ional Health - [...] Sex Assigned at Female 10/16/2018 10:53 AM CUSTOMER COMPLAINT SERVICE SUPERVISOR Gender Identity Female 10/16/2018 10:53 AM CUSTOMER COMPLAINT SERVICE SUPERVISOR Sexual Orientation Straight 06/27/2023 1: 38 PM CDT documented as of this encounter Plan of Treatment Upcoming Encounters Date Type Department Care Team (Late st Contact Info) Description 08/12/2024 1:30 PM CDT Office Visit Department of Family Medicine, [facility], in [place], [place] [address] [place] [address] Annemarie Montiel M.D. [address] [place] [address] 08/27/2024 9:45 AM CDT Procedure visit Department of Neurology in [place], [place] [address] [place] [address] Hipolito Babin M.D. [address] [place] [address] Scheduled Procedures Name Priority Associated Diagnoses Date/Ti me LIFT THIGH Excessive And Redundant Skin And Subcutaneous Tissue documented as of this encounter Visit Diagnoses Not on filedocumented in this encounter Additional Health Concerns Assessment Noted Time PHQ-9 Depression Total Score: 20 024 12:51 PM CDT documented as of this encounter Care Teams Emissions Testing And Repair Technician Relationship Specialty Start Date End Date Annemarie Montiel M.D. [address] [place] [address] PCP - General 04/19/17 documented as of this encounter
--- OUTSIDE RECORDS SUMMARY | 2024-08-02 20:38 | XMS_ITS | Encounter Summary ---
Author Organization [facility] Address [address] [place] [address] Care Team Providers Care Purchasing Analyst Name Role Phone Annemarie Montiel M.D. Primary Care Provider +1 -[phone] Reason for Visit * Reason Comments Care Coordination [facility] CC Attempt #1 an d Mailed BRIANDA Encounter Details Date Type Department Care Team (Latest Contact Info) Description 06/05/2024 Patient Outreach Department of Family Medicine, [facility], in [place], [place] [address] [address] Fouzia Saldana R.N. [address] [address] Care Coordination ([facility] CC Attempt #1 and Mailed BRIANDA) Social History Tobacco Use Types Packs/Day Years Used Date Smoking Tobacco: Never Smokeless Tobacco: Never Alcohol Use Standard Drinks/Week Comments No 0 (1 standard drink = 0.6 oz pur e alcohol) [facility] Utilities Answer Date Recorded In the past 12 months has [employer], gas, oil, or water [employer] threatened to shut off services in your [...] with friends or relatives? Never 03/29/2020 Attends Mu-Ism Services Not on file 03/29 Active Member [...] Date Recorded PHQ-2 Score 6 04/15/2024 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 [address] [address] 08/27/2024 9:45 AM CDT Procedure visit Department of Neurology in [place], [place] [address], [place] [address] Hipolito Babin M.D. [address] [place] [address] Scheduled Procedures Name Priority Associated Diagnoses Date/Ti me LIFT THIGH Excessive And Redundant Skin And Subcutaneous Tissue documented as of this encounter Visit Diagnoses Not on filedocumented in this encounter Additional Health Concerns Assessment Noted Time PHQ-9 Depression Total Score: 20 024 12:51 PM CDT documented as of this encounter Care Teams Purchasing Analyst Relationship Specialty Start Date End Date Annemarie Montiel M.D. [address] [phone] PCP - General 04/19/17 documented as of this encounter
--- NOTE | 2024-08-02 20:45 | ED_ITS ---
HPI - General Adult General Chief complaint: Rib Pain Stated complaint: L side rib pain Time Seen by Provider: 08/02/24 20:04 History of Present Illness HPI narrative: This 39-year-old female comes in with an injury to her left lower lateral ribs that occurred a couple days ago. She was reaching over leaning into a dumpster when she felt a crack and pain in her left lateral lower ribs. Since then she has had increased pain. She does not report any other injury. She arrives here with normal vital signs. Related Data Home Medications ?Medication ?Instructions ?Recorded ?Confirmed multivitamin (Daily Multi-Vitamin 1 tab PO QAM 06/05/22 10/18/23 tablet) medical marijuana PO 07/24/22 10/18/23 baclofen 10 mg tablet 10 mg PO BID PRN 10/18/23 10/18/23 modafinil 200 mg tablet 400 mg PO QAM 10/18/23 pramipexole 0.125 mg tablet 0.125 mg PO DAILY 10/18/23 10/18/23 Previous Rx's ?Medication ?Instructions ?Recorded lorazepam 1 mg tablet 0.5 - 1 mg (0.5 - 1 x 1 mg) PO BID 03/29/23 PRN anxiety #30 tabs bupropion HCl 150 mg 24 hr tablet, 150 mg PO QAM #90 tabs 10/30/23 extended release (Wellbutrin XL) valacyclovir 1 gram tablet 1,000 mg PO QDAY #30 tabs 10/30/23 bupropion HCl 300 mg 24 hr tablet, 300 mg PO QDAY #90 tabs 11/29/23 extended release duloxetine 60 mg capsule,delayed 60 mg PO QDAY #90 caps 11/29/23 release furosemide 20 mg tablet (Lasix) 20 mg PO QAM PRN edema #90 tabs 11/29/23 topiramate 100 mg tablet 100 mg PO QDAY #90 tabs 11/29/23 Allergies Allergy/AdvReac Type Severity Reaction Status Date / Time No Known Drug Allergies Allergy Verified 10/18/23 13:12 Review of Systems Status of ROS: Reports: 10 or more systems reviewed and unremarkable except as noted in History and below Narrative: Constitutional: No fevers, no weight gain or loss. Eyes: No discharge. No vision changes. HENT: No congestion, no sore throat, no ear pain. Cardiovascular: No palpitations. Respiratory: No shortness of breath, no wheezes, no cough. Gastrointestinal: No abdominal pain, no vomiting, no diarrhea. Genitourinary: No dysuria, no hematuria. Musculoskeletal: Normal range of motion. Skin: No rashes, no pruritis. Neurological: No dizziness, weakness, sensory change, speech change. Endo/Heme/Allergies: No bruising or bleeding. No polydipsia. Pysch: no suicidality, no anxiety, no insomnia. All other systems reviewed and are negative. [facility] Medical History (Updated 08/02/24 @ 20:58 by Ede Benedict MD) Chronic low back pain ?M54.50 - Low back pain, unspecified (ICD-10) ?G89.29 - Other chronic pain (ICD-10) ADHD, predominantly inattentive type ?F90.0 - Attention-deficit hyperactivity disorder, predominantly inattentive type (ICD-10) Migraine ?G43.909 - Migraine, unspecified, not intractable, without status migrainosus (ICD-10) Insomnia ?G47.00 - Insomnia, unspecified (ICD-10) Gestational diabetes ?O24.419 - Gestational diabetes mellitus in , unspecified control (ICD-10) Cervical radiculopathy ?M54.12 - Radiculopathy, cervical region (ICD-10) PTSD (post-traumatic stress disorder) ?F43.10 - Post-traumatic stress disorder, unspecified (ICD-10) H/O trichomonal vaginitis ?Z86.19 - Personal history of other infectious and parasitic diseases (ICD- 10) Genital herpes ?A60.00 - Herpesviral infection of urogenital system, unspecified (ICD-10) Narcolepsy ?G47.419 - Narcolepsy without cataplexy (ICD-10) Major depression, recurrent ?F33.9 - Major depressive disorder, recurrent, unspecified (ICD-10) EBNITA (generalized anxiety disorder) ?F41.1 - Generalized anxiety disorder (ICD-10) Surgical History (Updated 08/09/22 @ 13:30 by Homa Dugan ~ RN, RN) H/O: hysterectomy ?Z90.710 - Acquired absence of both cervix and uterus (ICD-10) Previous section ?Z98.891 - History of uterine scar from previous surgery (ICD-10) Hx of tonsillectomy ?Z90.89 - Acquired absence of other organs (ICD-10) History of bariatric surgery ?Z98.84 - Bariatric surgery status (ICD-10) History of abdominal hysterectomy ?Z90.710 - Acquired absence of both cervix and uterus (ICD-10) Hx of gastric bypass ?Z98.84 - Bariatric surgery status (ICD-10) Family History Mother Depression Brother Depression Father Heart disease Family/Other Diabetes Social History (Updated 02/13/23 @ 21:46 by Dilshad Junior MD) Narrative: , 4 kids, non-smoker, social EtOH, unemployed Smoking Status: Never smoker Do you use any of these nicotine containing products: Vaping Products Second hand tobacco smoke exposure: Yes Little interest or pleasure in doing things: more than half the days Feeling down, depressed, or hopeless: more than half the days Exam Narrative: Exam Narrative: Constitutional: Well-developed, well-nourished, no acute distress. HEENT: Normocephalic, atraumatic. Neck: Normal range of motion. Nontender. Supple. Heart: Regular. No murmurs. Normal rate. Intact distal pulses. Lungs: Clear to auscultation. No wheezes, rhonchi, or rales. Pain in the left lateral lower ribs. Abdomen: Normal bowel sounds. Nontender. No rebound tenderness. Genitalia: Deferred. Back: No midline tenderness. Normal range of motion. Extremities: Normal range of motion. No injury. Skin: Intact. No rash. Warm. No erythema or pallor. Neurologic: No altered sensation. No weakness. Alert and oriented. Psychiatric: No suicidality. No anxiety or depression. No insomnia. Nursing notes and vitals signs are reviewed. Const: Vital Signs, click to edit/add: Vital Signs - 24 hr 08/02/24 20:04 Temperature 97.4 F L Pulse Rate [Left P ulse Oximeter] 91 Respiratory Rate 18 Blood Pressure [Ri ght Upper Arm] 137/85 Pulse Oximetry 100 Oxygen Delivery Me thod Room Air Course Vital Signs Vital signs: Initial Vital Signs Temperature 97.4 F L 08/02/24 20:04 Temperature Source Temporal Artery Scan 08/02/24 20:04 Pulse Rate 91 08/02/24 20:04 Pulse Rhythm Regular 08/02/24 20:04 Respiratory Rate 18 08/02/24 20:04 Blood Pressure 137/85 08/02/24 20:04 Blood Pressure Mean 102 08/02/24 20:04 Blood Pressure Position Sitting 08/02/24 20:04 Pulse Oximetry 100 08/02/24 20:04 Oxygen Delivery Method Room Air 08/02/24 20:04 Vital Signs Temperature 97.4 F L 08/02/24 20:04 Pulse Rate 91 08/02/24 20:04 Respiratory Rate 18 08/02/24 20:04 Blood Pressure 137/85 08/02/24 20:04 Pulse Oximetry 100 08/02/24 20:04 Oxygen Delivery Method Room Air 08/02/24 20:04 Temperature 97.4 F L 08/02/24 20:04 Pulse Rate 91 08/02/24 20:04 Respiratory Rate 18 08/02/24 20:04 Blood Pressure 137/85 08/02/24 20:04 Pulse Oximetry 100 08/02/24 20:04 Oxygen Delivery Method Room Air 08/02/24 20:04 Medical Decision Making MDM Narrative Medical decision making narrative: This patient comes in with a rib injury. Chest x-ray with left rib detail does show a nondisplaced fracture of the 9th rib on the left lateral aspect. Lung dawn appear normal without any sign of pneumothorax. The patient does not have any abdominal pain to suggest spleen injury. She did receive an Russell wrap for some compression and I did provide [facility] prescriptions for Toradol and [place]. Imaging Data Chest x-ray: Radiologist's impression: Nondisplaced left lateral 9th rib fracture. No additional fractures or malalignment. No suspicious osseous lesions. The soft tissues are unremarkable. The cardiomediastinal silhouette and pulmonary vasculature are unremarkable. There is no focal airspace consolidation, pleural effusion, or pneumothorax. Discharge Plan Discharge Clinical Impression: Fracture of rib Patient Disposition: Home, Self-Care Condition: Unchanged Additional Instructions: Activity as tolerated. Use medicines as needed and directed. Follow up with MD return if worsening. Prescriptions: No Action medical marijuana PO multivitamin [Daily Multi-Vitamin] Tablet 1 tab PO QAM modafinil 200 mg tablet 400 mg PO QAM baclofen 10 mg tablet 10 mg PO BID PRN pramipexole 0.125 mg tablet 0.125 mg PO DAILY lorazepam 1 mg tablet 0.5 - 1 mg PO BID PRN (Reason: anxiety) Qty: 30 0RF valacyclovir 1 gram tablet 1,000 mg PO QDAY Qty: 30 2RF bupropion HCl [Wellbutrin XL] 150 mg tablet extended release 24 hr 150 mg PO QAM Qty: 90 0RF Rx Instructions: Total daily dose 450 mg bupropion HCl 300 mg tablet extended release 24 hr 300 mg PO QDAY Qty: 90 0RF furosemide [Lasix] 20 mg tablet 20 mg PO QAM PRN (Reason: edema) Qty: 90 0RF topiramate 100 mg tablet 100 mg PO QDAY Qty: 90 0RF duloxetine 60 mg capsule,delayed release(DR/EC) 60 mg PO QDAY Qty: 90 0RF Follow Up/Referrals: Annemarie Montiel MD [Primary Care Provider] - Stand Alone Forms: [facility] Info Instructions
== END 2024-08-02 21:05 | disposition home or self-care (01) ==
PROVIDERS: Emergency Provider Emergency Medicine Emergency Medical Services
DX: S22.32XA Fracture of one rib, left side, initial encounter for closed fracture (principal)
CPT/HCPCS: 71101; 99283; 99284

== ENCOUNTER 2024-08-11 13:09 | Outpatient (CLI) | payer BC, SELFPAY ==
--- OUTSIDE RECORDS SUMMARY | 2024-08-11 13:27 | XMS_ITS | Clinical Summary ---
Author Organization [facility] Address [address] [place] [address] Care Team Providers Care Assistant Professor Of Philosophy Name Role Phone Unassigned, Provider Primary Care [...] for each transition of care or referral. [facility] Allergies No known active allergies Medications Medication [...] on patient's age to complete this topic Infant RSV Aged Out No longer eligi ble based on patient's age to complete this topic MCV4 Aged Out No longer eligi ble based on patient's age to complete this topic Pneumococcal Aged Out No longer eligi ble based on patient's age to complete this topic Care Teams Assistant Professor Of Philosophy Relationship Specialty Start Date End Date Unassigned, Provider [address] [place] [address] PCP - General 08/08/00
--- OUTSIDE RECORDS SUMMARY | 2024-08-11 13:28 | XMS_ITS | Encounter Summary ---
Author Organization [facility] Address [address] [place] [address] Care Team Providers Care As400 Operator Name Role Phone Annemarie Montiel M.D. Primary Care Provider [phone] Encounter Details Date Type Department Care Team (Late st Contact Info) Description 07/15/2024 1:30 PM CDT - 07/15/2024 11:59 PM CDT Hospital Encounter Department of Laboratory Medicine in [place], [place] [address] [place] [phone] Annemarie Montiel M.D. [address] [phone] Symptom Urinary Discharge Disposition: Home or Self Care Social History Tobacco Use Types Packs/Day Years Used Date Smoking Tobacco: Never Smokeless Tobacco: Never Alcohol Use Standard Drinks/Week Comments No 0 (1 standard drink = 0.6 oz pur e alcohol) [facility] Utilities Answer Date Recorded In the past 12 months has [employer], oil, or water [employer] threatened to shut off services in your [...] Answer Date Recorded PHQ-2 Score 6 04/15/2024 [facility] Occupat ional Health - Occupational [...] Sex Assigned at Female 10/16/2018 10:53 AM GRAPHICS EDIT TECHNICIAN Gender Identity Female 10/16/2018 10:53 AM GRAPHICS EDIT TECHNICIAN Sexual Orientation Straight 06/27/2023 1: 38 PM [...] by mouth daily. 180 tablet 1 03/18/2024 [id number] -minerals (MULTIPLE VITAMIN, WOMENS) tablet Take 1 [...] CDT Office Visit Department of Family Medicine, [facility], in [place], [place] [address] [place] [address] Annemarie Montiel M.D. [address] [place] [address] 08/27/2024 9:45 AM CDT Procedure visit Department of Neurology in [place], [place] [address] [place] [address] Hipolito Babin M.D. [address] [place] [address] Scheduled Procedures Name Priority Associated Diagnoses Date/Ti me LIFT THIGH Excessive And Redundant Skin And Subcutaneous Tissue documented as of this encounter Procedures Procedure Name Priority Date/Time Associated Diagnosis Comments URINALYSIS WITH MICROSCOPIC IF INDICATED, U Routine 07/15/2024 2:40 PM CDT Symptom Urinary VA URINALYSIS AUTO W MICRO Routine 07/15/2024 2:40 [...] Annemarie Montiel M.D. LAB URINE ORDERAB LES [facility] [address] [place] [address], [facility] FB60 [facility] [place] [address] [place] [address] * (ABNORMAL) Urinalysis with Microscopic if Indicated [...] 8.0 07/15/2024 2:49 PM CDT FB60 Specific Mccrory >=1.030 1.001 - 1.035 07/15/2024 2:49 PM CDT FB60 Urobilinogen 1.0 0.2 - 1.0 mg/dL 07/15/2024 2:49 PM CDT FB60 Urine (Urine, Midstream) 07/15/2024 2:40 PM CDT 07/15/2024 2:43 PM CDT Annemarie Montiel M.D. LAB URINE ORDERAB LES Performing Organization Address City/[facility]/ZIP Co de Phone Number [facility] [address] [place] [address], [facility] FB60 [facility] [place] [address] [facility] [place] [address] * (ABNORMAL) Bacterial Culture, Aerobic + Susceptibility, [...] Montiel M.D. LAB MICROBIOLOGY - GENERAL ORDERABLES [facility] [address] [place] [address], [facility] MKTO [facility] in [place] [address] [place] [address] documented in this encounter Visit Diagnoses Diagnosis Symptom Urinary documented in this encounter Additional Health Concerns Assessment Noted Time PHQ-9 Depression Total Score: 20 024 12:51 PM CDT documented as of this encounter Care Teams As400 Operator Relationship Specialty Start Date End Date Annemarie Montiel M.D. [address] [phone] PCP - General 04/19/17 documented as of this encounter
--- OUTSIDE RECORDS SUMMARY | 2024-08-11 13:28 | XMS_ITS ---
Author Organization [facility] Address [address] [place] [address] Care Team Providers Care Blanket Washer Name Role Phone Unavailable Unavailable Unavailable Surgery Details Not on file Complications Check Surgery Details section. Procedure Estimated Blood Loss Check Surgery Details section. Procedure Findings Check Surgery Details section. Procedure Specimens Taken Check Surgery Details section.
--- OUTSIDE RECORDS SUMMARY | 2024-08-11 13:28 | XMS_ITS | Encounter Summary ---
Author Organization [facility] Address [address] [place] [address] Care Team Providers Care Baked And Graphite Inspector Name Role Phone Annemarie Montiel M.D. Primary Care Provider [phone] [phone] Encounter Details Date Type Department Care Team (Late st Contact Info) Description 07/16/2024 Orders Only Department of Family Medicine, [facility] [place], in [place], [place] [address] [phone] Annemarie Montiel M.D. [address], [place] [address] Social History Tobacco Use Types Packs/Day Years Used Date Smoking Tobacco: Never Smokeless Tobacco: Never Alcohol Use Standard Drinks/Week Comments No 0 (1 standard drink = 0.6 oz pur e alcohol) [facility] Utilities Answer Date Recorded In the past 12 months has [facility] [employer], [employer], oil, or water [employer] threatened to shut off services in your [...] Answer Date Recorded PHQ-2 Score 6 04/15/2024 [facility] of Occupat ional Health - Occupational Stress [...] Sex Assigned at Female 10/16/2018 10:53 AM INFANT TEACHER Gender Identity Female 10/16/2018 10:53 AM INFANT TEACHER Sexual Orientation Straight 06/27/2023 1: 38 PM CDT documented as of this encounter Plan of Treatment Upcoming Encounters Date Type Department Care Team (Late st Contact Info) Description 08/12/2024 1:30 PM CDT Office Visit Department of Family Medicine, [facility] [place], in [place], [place] [address] [place] [phone] Annemarie Montiel M.D. [address] [place] [phone] 08/27/2024 9:45 AM CDT Procedure visit Department of Neurology in [place], [place] [address] [place] [address] Hipolito Babin M.D. [address] [place] [phone] Scheduled Procedures Name Priority Associated Diagnoses Date/Ti me LIFT THIGH Excessive And Redundant Skin And Subcutaneous Tissue documented as of this encounter Visit Diagnoses Not on filedocumented in this encounter Additional Health Concerns Assessment Noted Time PHQ-9 Depression Total Score: 20 024 12:51 PM CDT documented as of this encounter Care Teams Baked And Graphite Inspector Relationship Specialty Start Date End Date Annemarie Montiel M.D. [address] [place] [phone] PCP - General 04/19/17 documented as of this encounter
--- OUTSIDE RECORDS SUMMARY | 2024-08-11 13:28 | XMS_ITS | Encounter Summary ---
Author Organization [facility] Address [address] [place] [address] Care Team Providers Care Neurology Stroke Physician Name Role Phone Annemarie Montiel M.D. Primary Care Provider [phone] Reason for Visit * Reason Comments Care Coordination [facility] CC Attempt #2 an d Portal Encounter Details Date Type Department Care Team (Latest Contact Info) Description 06/19/2024 Patient Outreach Department of Family Medicine, [facility], in [place], [place] [address] [phone] Fouzia Saldana R.N. [address] [phone] Care Coordination ([facility] CC Attempt #2 and Portal) Social History Tobacco Use Types Packs/Day Years Used Date Smoking Tobacco: Never Smokeless Tobacco: Never Alcohol Use Standard Drinks/Week Comments No 0 (1 standard drink = 0.6 oz pur e alcohol) [facility] Utilities Answer Date Recorded In the past 12 months has [employer], [employer], oil, or water [employer] threatened to shut off services in your [...] with friends or relatives? Never 03/29/2020 Attends [employer] Not on file 03/29 Active Member [...] Answer Date Recorded PHQ-2 Score 6 04/15/2024 [facility] of Occupat ional Health - Occupational [...] Sex Assigned at Female 10/16/2018 10:53 AM MECHANICAL SPREADER OPERATOR Gender Identity Female 10/16/2018 10:53 AM MECHANICAL SPREADER OPERATOR Sexual Orientation Straight 06/27/2023 1: 38 PM CDT documented as of this encounter Plan of Treatment Upcoming Encounters Date Type Department Care Team (Late st Contact Info) Description 08/12/2024 1:30 PM CDT Office Visit Department of Family Medicine, [facility], in [place], [place] [address] [place] [phone] Annemarie Montiel M.D. [address], [place] [address] 08/27/2024 9:45 AM CDT Procedure visit Department of Neurology in [place], [place] [address] [place] [address] Hipolito Babin M.D. [address] [address] Scheduled Procedures Name Priority Associated Diagnoses Date/Ti me LIFT THIGH Excessive And Redundant Skin And Subcutaneous Tissue documented as of this encounter Visit Diagnoses Not on filedocumented in this encounter Additional Health Concerns Assessment Noted Time PHQ-9 Depression Total Score: 20 024 12:51 PM CDT documented as of this encounter Care Teams Neurology Stroke Physician Relationship Specialty Start Date End Date Annemarie Montiel M.D. [address] [place] [phone] PCP - General 04/19/17 documented as of this encounter
--- OUTSIDE RECORDS SUMMARY | 2024-08-11 13:28 | XMS_ITS | Encounter Summary ---
Author Organization [facility] Address [address] [place] [address] Care Team Providers Care Loom Starter Name Role Phone Annemarie Montiel M.D. Primary Care Provider [phone] Reason for Visit * Reason Onset Date Comments urine symptom 07/11/2024 Encounter Details Date Type Department Care Team (Late st Contact Info) Description 07/11/2024 E-Visit Department of Family Medicine, [facility], in [place], [place] [address] [phone] Annemarie Montiel M.D. [address] [phone] Labs Social History Tobacco Use Types Packs/Day Years Used Date Smoking Tobacco: Never Smokeless Tobacco: Never Alcohol Use Standard Drinks/Week Comments No 0 (1 standard drink = 0.6 oz pur e alcohol) [facility] Utilities Answer Date Recorded In the past 12 months has [employer], gas, oil, or water [employer] threatened to shut off services in your [...] with friends or relatives? Never 03/29/2020 Attends [facility] Not on file 03/29 Active Member [...] Sex Assigned at Female 10/16/2018 10:53 AM SPECIAL FORCES SPECIALIST Gender Identity Female 10/16/2018 10:53 AM SPECIAL FORCES SPECIALIST Sexual Orientation Straight 06/27/2023 1: 38 [...] Montiel M.D. , Department of Family Medicine [facility] #1 Symptom Urinary I spent a total of 7 minutes reviewing the patient???s prior medical records and current eVisit submission. documented in this encounter Plan of Treatment Upcoming Encounters Date Type Department Care Team (Late st Contact Info) Description 08/12/2024 1:30 PM CDT Office Visit Department of Family Medicine, [facility], in [place], [place] [address] [phone] Annemarie Montiel M.D. [address] [phone] 08/27/2024 9:45 AM CDT Procedure visit Department of Neurology in [place], [place] [address] [phone] Hipolito Babin M.D. [address] [phone] Scheduled Procedures Name Priority Associated [...] 8.0 07/15/2024 2:49 PM CDT FB60 Specific [place] >=1.030 1.001 - 1.035 07/15/2024 2:49 PM CDT FB60 Urobilinogen 1.0 0.2 - 1.0 mg/dL 07/15/2024 2:49 PM CDT FB60 Urine (Urine, Midstream) 07/15/2024 2:40 PM CDT 07/15/2024 2:43 PM CDT Annemarie Montiel M.D. LAB URINE ORDERAB LES [facility] [address] [place] [address], [facility] FB60 [facility] in [place] [address] [place] [address] * (ABNORMAL) Bacterial Culture, Aerobic + Susceptibility, [...] Montiel M.D. LAB MICROBIOLOGY - GENERAL ORDERABLES [facility] [address] [place] [address], [facility] MKTO [facility] in [place] [address] [place] [address] documented in this encounter Visit Diagnoses Diagnosis Symptom Urinary- Primary documented in this encounter Additional Health Concerns Assessment Noted Time PHQ-9 Depression Total Score: 20 024 12:51 PM CDT documented as of this encounter Care Teams Loom Starter Relationship Specialty Start Date End Date Annemarie Montiel M.D. [address] [place] [address] PCP - General 04/19/17 documented as of this encounter
--- OUTSIDE RECORDS SUMMARY | 2024-08-11 13:28 | XMS_ITS | Encounter Summary ---
Author Organization [facility] Address [address] [place] [address] Care Team Providers Care Cmv Driver Name Role Phone Annemarie Montiel M.D. Primary Care Provider +1 [phone] Reason for Visit * Reason Comments Med Refill Encounter Details Date Type Department Care Team (Late st Contact Info) Description 07/08/2024 Refill Department of Family Medicine, [facility], in [place], [place] [address] [phone] Annemarie Montiel M.D. [address] [place] [phone] Med Refill Social History Tobacco Use Types Packs/Day Years Used Date Smoking Tobacco: Never Smokeless Tobacco: Never Alcohol Use Standard Drinks/Week Comments No 0 (1 standard drink = 0.6 oz pur e alcohol) [facility] Utilities Answer Date Recorded In the past 12 months has [employer], [employer], or water [employer] threatened to shut off services in your [...] Answer Date Recorded PHQ-2 Score 6 04/15/2024 [facility] of Occupat ional Health - Occupational Stress [...] Sex Assigned at Female 10/16/2018 10:53 AM GRASSROOTS ORGANIZER Gender Identity Female 10/16/2018 10:53 AM GRASSROOTS ORGANIZER Sexual Orientation Straight 06/27/2023 1: 38 PM CDT documented as of this encounter Plan of Treatment Upcoming Encounters Date Type Department Care Team (Late st Contact Info) Description 08/12/2024 1:30 PM CDT Office Visit Department of Family Medicine, [facility], in [place], [place] [address] [place] [phone] Annemarie Montiel M.D. [address], [place] [address] 08/27/2024 9:45 AM CDT Procedure visit Department of Neurology in [place], [place] [address] [address] Hipolito Babin M.D. [address] [address] Scheduled Procedures Name Priority Associated Diagnoses Date/Ti me LIFT THIGH Excessive And Redundant Skin And Subcutaneous Tissue documented as of this encounter Visit Diagnoses Diagnosis Chronic Migraine Without Aura Not Intractable Without Status Migrainosus documented in this encounter Additional Health Concerns Assessment Noted Time PHQ-9 Depression Total Score: 20 024 12:51 PM CDT documented as of this encounter Care Teams Cmv Driver Relationship Specialty Start Date End Date Annemarie Montiel M.D. [address] [phone] PCP - General 04/19/17 documented as of this encounter
--- OUTSIDE RECORDS SUMMARY | 2024-08-11 13:28 | XMS_ITS | Clinical Summary ---
Author Organization [facility] Address [address] [place] [address] Care Team Providers Care Territory Account Manager Name Role Phone Annemarie Montiel M.D. Primary Care Provider [phone] [phone] Source Comments Patient records contain information from all sites at [facility]. For routine questions regarding patient records, call [phone] during business hours, M-F 8:00 AM - 5:00 PM Central Time. Record requests for emergency care only can be directed to [phone] at any time.[facility] Allergies Active Allergy Reactions Criticality Noted Date Comments Animal Dander Hives (Reselect Reaction) 12/16/2019 Cigarette Smoke Hives (Reselect Reaction) 12/16/2019 House Dust Mite Rash 07/08/2008 Sumatriptan Other (see comments) 03/18/2024 Out of body feeling Nsaids (Non-Steroidal Anti-Inflammatory Drug) Other (see comments) 09/04/2021 Gastric sleeve Medications Medication Sig Dispensed Refills Start Date End Date Status multivitamin-Ca- iron-minerals (MULTIPLE VITAMIN, WOMENS) tablet Take 1 tablet by mouth daily. Active baclofen (LIORESAL) 10 mg tablet Take 10 mg by mouth 2 (two) times a day as needed. 08/21/2022 Active medical cannabis capsule 07/24/2022 Active cranberry fruit extract (CRANBERRY EXTRACT ORAL) Take 1 capsule by mouth daily. Active pramipexole (MIRAPEX) 0.125 mg tabletIndication s:Restless Leg Syndrome TAKE 1 TABLET (0.125 MG TOTAL) BY MOUTH AT BEDTIME. 2-3 HOURS BEFORE BED OPTIMALLY. 90 tablet 3 03/11/2024 Active diclofenac sodium (VOLTAREN) 1 % gelIndications:P ain Hand Bilateral Apply 2 g topically 4 (four) times a day. Apply to hands. 100 g 1 03/13/2024 Active modafiniL (PROVIGIL) 200 mg tabletIndication s:Narcolepsy (HCC) Take 2 tablets (400 mg total) by mouth daily. 180 tablet 1 03/18/2024 Active buPROPion XL (WELLBUTRIN XL) 150 mg 24 hr tablet Take 1 tablet (150 mg total) by mouth daily. 90 tablet 4 03/18/2024 Active buPROPion XL (WELLBUTRIN XL) 300 mg 24 hr tablet Take 1 tablet (300 mg total) by mouth daily. 90 tablet 4 03/18/2024 Active LORazepam (ATIVAN) 1 mg tablet Take 1 tablet (1 mg total) by mouth daily as needed for anxiety. 30 tablet 2 03/18/2024 Active valACYclovir (VALTREX) 1000 mg tabletIndication s:Herpes Genitalis Take 1 tablet (1,000 mg total) by mouth daily. 90 tablet 3 03/18/2024 Active cyanocobalamin (VITAMIN B12) 1,000 mcg/mL injectionIndicat ions:Surgery Bariatric Status Post Inject 1 mL (1,000 mcg total) under the skin every 30 (thirty) days. One injection per month with 1st dose to occur approximately 30 days after your dose at the nurse clinic 1 mL 04/21/2024 Active syringe with needle, safety (Easy Touch SheathLock Syrg-Ndl) 3 mL 25 gauge x 5/8 syringeIndicatio ns:Surgery Bariatric Status Post For use once monthly as directed to administer B12 injection subcutaneous 1 each 04/21/2024 Active ubrogepant (Ubrelvy) 100 mg tablet tablet Take 1 tablet (100 mg total) by mouth as needed for migraine. May repeat dose once after at least 2 hours if migraine is unresolved. Do not exceed 200 mg in 24 hours. 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 INSURANCE LIMITS TO 30 DAYS 60 tablet 3 07/09/2024 Active nitrofurantoin monohydrate (MACROBID) 100 mg capsule Take 100 mg by mouth 2 (two) times a day. As needed for UTI 08/31/2023 4 Discontinue d(Reorder) nitrofurantoin monohydrate (Macrobid) 100 mg capsule Take 1 capsule (100 mg total) by mouth 2 (two) times a day for 7 days. For urinary tract infection 14 capsule 07/16/2024 4 Active Problems Problem Noted Date Diagnosed Date [...] (04/11/2022): Added automatically from request for surgery [id number] Panniculitis 11/07/2019 06/13/2023 Overview (11/07/2019): Added automatically from request for surgery [id number] Acquired Absence Of Both Cervix And Uterus [...] Encounters Date Type Department Care Team Description 08/09/2024 Nurse Triage Department of Family Medicine, [facility], in [place], [place] [address] [place] [phone] Presley Mcmullen R.N. Urinary Problem 07/16/2024 Orders Only Department of Family Medicine, [facility], in [place], [place] [address] [place] [phone] Annemarie Montiel M.D. 07/15/2024 1:30 PM CDT - 07/15/2024 11:59 PM CDT Hospital Encounter Department of Laboratory Medicine in [address] [phone] Annemarie Montiel M.D. Symptom Urinary Discharge Disposition: Home or Self Care 07/11/2024 E-Visit Department of Family Medicine, [facility], in [place], [place] [address] [place] [phone] Annemarie Montiel M.D. Labs 07/08/2024 Refill Department of Family Medicine, [facility], in [place], [place] [address] [place] [phone] Annemarie Montiel M.D. Med Refill 06/19/2024 Patient Outreach Department of Family Medicine, [facility], in [place], [place] [address] [place] [phone] Fouzia Saldana R.N. Care Coordination ([facility] CC Attempt #2 and Portal) 06/06/2024 10:50 AM CDT - 06/06/2024 11:59 PM CDT Hospital Encounter Department of Laboratory Medicine in [address] [phone] Annemarie Montiel M.D. Exposure Sexually Transmitted Disease Discharge Disposition: Home or Self Care 06/06/2024 10:50 AM CDT Hospital Encounter Department of Laboratory Medicine in [address] [phone] Annemarie Montiel M.D. Exposure Sexually Transmitted Disease Discharge Disposition: Home or Self Care 06/05/2024 Nurse Triage Department of [facility], [facility], in [address] [phone] Tammy Wei RCiera STI Screening 06/05/2024 Patient Outreach Department of [facility], [facility], in [address] [phone] Fouzia Saldana RCiera Care Coordination ([facility] CC Attempt #1 and Mailed BRIANDA) 06/03/2024 Clinical Communication Pharmacy Prior Auth [phone] Sophia Roberts RX APPROVAL (UBRELVY 100MG TAB) 06/02/2024 Refill Department of [facility], [facility], in [address] [phone] Annemarie Montiel M.D. Med Refill 05/30/2024 Patient Outreach Department of [facility], [facility], in [address] [phone] Fouzia Saldana R.N. Care Coordination ([facility] CC Follow Up) 05/30/2024 Clinical Communication Department of Neurology in [address] [phone] Hipolito Babin M.D. 05/29/2024 1:30 PM CDT Comprehensive Visit Department of Neurology in [address] [phone] Hipolito Babin M.D. Chronic Migraine (Primary Dx); Migraine Headache 05/26/2024 Patient Outreach Department of [facility], [facility], in [place], [place] [address] [place] [phone] Fouzia Saldana R.N. Care Coordination (Referral: Psychiatry) 05/16/2024 Patient Outreach Department of [facility], [facility], in [place], [place] [address] [place] [address] Fouzia Saldana R.N. Care Coordination ([facility] CC Follow Up) from Last 3 [...] problems Maternal Grandmother Anxiety disorder Maternal Grandmother Clotting disorder Maternal Grandmother Colon cancer Maternal Grandmother Lung cancer Maternal Grandmother Sleep apnea Maternal Grandmother Anxiety disorder Mother Kimberly Depression Mother Kimberly [...] 0.6 oz pur e alcohol) [facility] Utilities Answer Date Recorded In the past 12 months has [employer], gas, oil, or water [employer] threatened to shut off services in your [...] with friends or relatives? 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 Sexual Orientation Straight 06/27/2023 1: 38 PM CDT Last Filed Vital Signs Vital Sign Reading Time Taken Comments Blood Pressure 111/73 05/29/2024 1:30 PM CDT Pulse 92 05/29/2024 1:30 PM CDT Temperature 36.8 ??C (98.3 ??F) 03/13/2024 1:18 PM CD T Respiratory Rate 20 03/18/2024 9:30 AM CDT Oxygen Saturation 98% 12/17/2019 8:30 AM WATCH TRAIN ASSEMBLER Inhaled Oxygen Concentration - - Weight 80 kg (176 lb 5.9 oz) 05/29/2024 1:30 PM CDT Height 166 cm (5' 5.35) 05/29/2024 1:30 PM CDT Body Mass Index 29.03 05/29/2024 1:30 PM CDT Plan of Treatment Upcoming Encounters Date Type Department Care Team (Late st Contact Info) Description 08/12/2024 1:30 PM CDT Office Visit Department of Family Medicine, [facility], in [place], [place] [address] [place] [phone] Annemarie Montiel M.D. [address], [place] [address] 08/27/2024 9:45 AM CDT Procedure visit Department of Neurology in [place], [place] [address] [address] Hipolito Babin M.D. [address] [address] Scheduled Procedures Name Priority Associated [...] this topic Medical Devices Implanted Type Area Application Technician Device Identifier Shelf Expiration Date Model / Serial / Lot Conversions - Default Historical Implant Device Implanted:12/2014 (Quantity not on file) Hardware e.g. pins/screws /rods Mouth Description:Body Location - Mouth. both sides of jaw. Device Status Text - Hardware. Clp Hrzn Ti 6 Clp Sheng - [id number] Implanted:Qty: 1 on 12/16/2019 by Clare Deleon M.B.B.S. at [facility] Hardware e.g. pins/screws /rods N/A: Abdomen Teleflex [employer] [id number] 03/25/2024 [id number] / / [id number] Clp Hrzn Ti 6 Clp Sm Red - [id number] Implanted:Qty: 1 on 12/16/2019 by Clare Deleon M.B.BRodrigoS. at [facility] Hardware e.g. pins/screws /rods N/A: Abdomen Teleflex [employer] [id number] 03/25/2024 [id number] / / [id number] Procedures Procedure Name Priority Date/Time Associated Diagnosis Comments MA URINALYSIS AUTO W MICRO Routine 07/15/2024 2:40 [...] 8.0 07/15/2024 2:49 PM CDT FB60 Specific Kirby >=1.030 1.001 - 1.035 07/15/2024 2:49 PM CDT FB60 Urobilinogen 1.0 0.2 - 1.0 mg/dL 07/15/2024 2:49 PM CDT FB60 Urine (Urine, Midstream) 07/15/2024 2:40 PM CDT 07/15/2024 2:43 PM CDT Annemarie Montiel M.D. LAB URINE ORDERAB LES Performing Organization Address [facility]/State/ZIP Co de Phone Number [facility] [address] [place] [address], [facility] FB60 [place] [address] * Microscopic Manual (07/15/2024 2:40 PM CDT) [...] Annemarie Montiel M.D. LAB URINE ORDERAB LES [facility] [address] [place] [address], [place] FB60 [facility] [place] [address] [place] [address] * (ABNORMAL) Bacterial Culture, Aerobic + Susceptibility, [...] M.D. LAB MICROBIOLOGY - GENERAL ORDERABLES [facility] [address] [place] [address], [place] MKTO [facility] [place] [address] [place] [address] * HIV-1/-2 Ag and Ab Screen, Plasma (06/06/2024 11:13 AM CDT) [facility] HIV Ag/Ab Screen, P Negative Negative 06/08/2024 [...] MICROBIOLOGY - BLOOD ORDERABLES Performing Organization Address [facility]/ZIP Co de Phone Number [facility] [address] [place] [address], [facility] in [address] [address] * Syphilis Total Antibody with Reflex, Serum (06/06/2024 11:13 AM CDT) Syphilis Total Ab w/ Reflex Nonreactive Nonreactive 06/08/2024 10:42 AM CDT [facility] Comment: No serologic evidence of infection with T. pallidum (syphilis). ??Repeat testing may be considered in patients with suspected acute or primary syphilis in 2-4 weeks. For additional information on interpretation of the syphilis reverse algorithm and results, see: [email or web address] Blood (Blood, Venous) 06/06/2024 11:13 AM CDT 06/07/2024 3:49 PM CDT Annemarie Montiel M.D. LAB BLOOD ADD-ON Performing Organization Address [facility] Co de Phone Number [facility] [address] [place] [address], [facility] in [address] [address] * HCV Ab Scrn w/Reflex to HCV PCR, Serum (06/06/2024 11:13 AM CDT) HCV Ab Screen, S Negative Negative 06/06/2024 2:37 PM CDT MKTO Blood (Blood, Venous) 06/06/2024 11:13 AM CDT 06/06/2024 1:[address] [facility] - 06/06/2024 2:37 PM CDT Specimen Information: Specimen ID: [id number] Specimen Type: Blood Specimen Collection Start Date: 06/06/2024 11:13 AM Specimen Received Date: 06/06/2024 ??1:53 PM Specimen ID: [id number] Specimen Type: Blood Specimen Collection Start Date: 06/06/2024 11:13 AM Specimen Received Date: 06/06/2024 ??2:38 PM Annemarie Montiel M.D. LAB MICROBIOLOGY - BLOOD ORDERABLES Performing Organization Address [facility] Co de Phone Number [facility] [address] [place] [address], [facility] MKTO [facility] [place] [address] [place] [address] * Chlamydia / Gonorrhoeae Amplified RNA (06/06/2024 [...] MICROBIOLOGY - GENERAL ORDERABLES Performing Organization Address City/[facility] Co de Phone Number [facility] [address] [place] [address], [facility] MKTO [address] [place] [address] * Lipid Panel (06/13/2023 5:29 PM CDT) Pathologist [facility] Triglycerides 56 mg/dL 06/14/2023 8:36 AM CDT [...] CDT Parisa Mills M.D. LAB BLOOD ADD-ON [facility] [address] [place] [address], [place] OWAT [facility] in [place] [address] [place] [address] from Last 3 Months or Most Recently Relevant to Health Maintenance Advance Directives For more information, please contact: [phone] * Full Code (Latest Code Status on File) Date Activated Date Inactivated Comments 12/16/2019 3:26 PM 12/17/2019 12:11 PM Question Answer Comments Full Code: Discussed Care Teams Territory Account Manager Relationship Specialty Start Date End Date Annemarie Montiel M.D. [address] [phone] PCP - General 04/19/17
--- OUTSIDE RECORDS SUMMARY | 2024-08-11 13:28 | XMS_ITS | Encounter Summary ---
Author Organization [facility] Address [address] [place] [address] Care Team Providers Care Director Of National Sales Name Role Phone Annemarie Montiel M.D. Primary Care Provider [phone] -[phone] Reason for Visit * Reason Onset Date Comments Urinary Problem 08/09/2024 Encounter Details Date Type Department Care Team (Late st Contact Info) Description 08/09/2024 Nurse Triage Department of Family Medicine, [facility], in [place], [place] [address] [place] [phone] Presley Mcmullen RRodrigoNRodrigo [address] [place] [address] Urinary Problem Social History Tobacco Use Types Packs/Day Years Used Date Smoking Tobacco: Never Smokeless Tobacco: Never Alcohol Use Standard Drinks/Week Comments No 0 (1 standard drink = 0.6 oz pur e alcohol) [facility] Utilities Answer Date Recorded In the past 12 months has [facility] [email or web address], [employer], oil, or water [employer] threatened to shut off services in your [...] with friends or relatives? 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 - 08/09/2024 10:22 AM CDT Chief Complaint / Reason for Call Patient is a 39 y.o. female calling regarding Urinary Problem. Assessment Concern: Foul urine odor returning. Had similar symptoms in July with resolving after antibiotics and fluids. Returning foul odor yesterday 08/08. Denies flank pain, urgency, frequency, fever, blood in urine, or feeling unwell. Present for: 08/08 Home cares tried: Fluids Calling to request: antibiotics The recommended disposition is See a health care provider within 24 hours. Patient was scheduled for an acute appointment via [employer] Scheduling. Verification of patient's scheduled appointment day, date, time, and location was completed. Reason for Disposition Bad or foul-smelling urine Protocols used: Urinary Onjjttrp-SAIIM-LJ Care Advice Patient/Caregiver understands and will follow care advice?: Yes, able to teach back Urinary Jwcusdhw-[id number]-SO Nurse Presley Astorga Aug 09, 2024 10:33 AM Care Advice SEE PCP WITHIN 24 HOURS: DRINK PLENTY OF LIQUIDS: * Drink plenty of liquids. It is important to stay well-hydrated. CALL BACK IF: * Fever occurs * Unable to urinate and bladder feels full * You become worse CARE ADVICE given per Urinary Symptoms (Adult) guideline. documented in this encounter Plan of Treatment Upcoming Encounters Date Type Department Care Team (Late st Contact Info) Description 08/12/2024 1:30 PM CDT Office Visit Department of Family Medicine, [facility], in [place], [place] [address] [phone] Annemarie Montiel M.D. [address] [place] [phone] 08/27/2024 9:45 AM CDT Procedure visit Department of Neurology in [place], [place] [address] [phone] Hipolito Babin M.D. [address] [phone] Scheduled Procedures Name Priority Associated Diagnoses Date/Ti me LIFT THIGH Excessive And Redundant Skin And Subcutaneous Tissue documented as of this encounter Visit Diagnoses Not on filedocumented in this encounter Additional Health Concerns Assessment Noted Time PHQ-9 Depression Total Score: 20 024 12:51 PM CDT documented as of this encounter Care Teams Director Of National Sales Relationship Specialty Start Date End Date Annemarie Montiel M.D. [address] [place] [phone] PCP - General 04/19/17 documented as of this encounter
--- OUTSIDE RECORDS SUMMARY | 2024-08-11 13:28 | XMS_ITS | Referral Summary ---
Author Organization [facility] Address [address] [place] [address] Care Team Providers Care Retail Loss Prevention Officer Name Role Phone Annemarie Montiel M.D. Primary Care Provider +1 -[phone] Source Comments Patient records contain information from all sites at [facility]. For routine questions regarding patient records, call [phone] during business hours, M-F 8:00 AM - 5:00 PM Central Time. Record requests for emergency care only can be directed to [phone] at any time.[facility] Encounters Date Type Department Care Team Description 08/09/2024 Nurse Triage Department of Family Medicine, [facility], in [place], [place] [address] [phone] Presley Mcmullen R.N. Urinary Problem 07/16/2024 Orders Only Department of Family Medicine, [facility], in [place], [place] [address] [phone] Annemarie Montiel M.D. 07/15/2024 1:30 PM CDT - 07/15/2024 11:59 PM CDT Hospital Encounter Department of Laboratory Medicine in [place], [place] [address] [place] [address] Annemarie Montiel M.D. Symptom Urinary Discharge Disposition: Home or Self Care 07/11/2024 E-Visit Department of Family Medicine, [facility], in [place], [place] [address] [address] Annemarie Montiel M.D. Labs 07/08/2024 Refill Department of [facility], [facility], in [address] [address] Annemarie Montiel M.D. Med Refill 06/19/2024 Patient Outreach Department of [facility], [facility], in [address] [address] Fouzia Saldana R.N. Care Coordination ([facility] CC Attempt #2 and Portal) 06/06/2024 10:50 AM CDT - 06/06/2024 11:59 PM CDT Hospital Encounter Department of Laboratory Medicine in [address] [address] Annemarie Montiel M.D. Exposure Sexually Transmitted Disease Discharge Disposition: Home or Self Care 06/06/2024 10:50 AM CDT Hospital Encounter Department of Laboratory Medicine in [address] [address] Annemarie Montiel M.D. Exposure Sexually Transmitted Disease Discharge Disposition: Home or Self Care 06/05/2024 Nurse Triage Department of [facility], in [address] [address] Tammy Wei RRodrigoNRodrigo STI Screening 06/05/2024 Patient Outreach Department of [facility], [facility], in [address] [address] Fouzia Saldana R.N. Care Coordination ([facility] CC Attempt #1 and Mailed BRIANDA) 06/03/2024 Clinical Communication Pharmacy Prior Auth RO [phone] Sophia Roberts RX APPROVAL (UBRELVY 100MG TAB) 06/02/2024 Refill Department of Family Medicine, [facility], in [address] [address] Annemarie Montiel M.D. Med Refill 05/30/2024 Patient Outreach Department of [facility], [facility], in [address] [address] Fouzia Saldana R.N. Care Coordination ([facility] CC Follow Up) 05/30/2024 Clinical Communication Department of Neurology in [address] [address] Hipolito Babin M.D. 05/29/2024 1:30 PM CDT Comprehensive Visit Department of Neurology in [address] [address] Hipolito Babin M.D. Chronic Migraine (Primary Dx); Migraine Headache 05/26/2024 Patient Outreach Department of [facility], [facility], in [address] [address] Fouzia Saldana, Katherin Care Coordination (Referral: Psychiatry) 05/16/2024 Patient Outreach Department of [facility], [facility], in [address] [address] Fouzia Saldana RCiera Care Coordination ([facility] CC Follow Up) from Last 3 Months [...] in 24 hours. 10 each 3 05/29/2024 Active furosemide (Lasix) 20 mg tablet TAKE 1 TABLET BY MOUTH EVERY DAY NEEDED FOR LEG EDEMA 30 tablet 3 06/03/2024 Active topiramate (Topamax) 100 mg tabletIndication [...] (04/11/2022): Added automatically from request for surgery [id number] Panniculitis 11/07/2019 06/13/2023 Overview (11/07/2019): Added automatically from request for surgery [id number] Acquired Absence Of Both Cervix And Uterus [...] drink = 0.6 oz pur e alcohol) [facility] Utilities Answer Date Recorded In the past 12 months has e [employer], gas, oil, or water company threatened to shut off services in your [...] with friends or relatives? Never 03/29/2020 Attends Rastafarian Services Not on file 03/29 Active Member [...] Answer Date Recorded PHQ-2 Score 6 04/15/2024 [facility] [place] of Occupat ional Health - Occupational Stress [...] Sex Assigned at Female 10/16/2018 10:53 AM ACCOUNT MANAGEMENT ASSISTANT Gender Identity Female 10/16/2018 10:53 AM ACCOUNT MANAGEMENT ASSISTANT Sexual Orientation Straight 06/27/2023 1: 38 PM CDT Last Filed Vital Signs Vital Sign Reading Time Taken Comments Blood Pressure 111/73 05/29/2024 1:30 PM CDT Pulse 92 05/29/2024 1:30 PM CDT Temperature 36.8 ??C (98.3 ??F) 03/13/2024 1:18 PM CD T Respiratory Rate 20 03/18/2024 9:30 AM CDT Oxygen Saturation 98% 12/17/2019 8:30 AM ACCOUNT MANAGEMENT ASSISTANT Inhaled Oxygen Concentration - - Weight 80 kg (176 lb 5.9 oz) 05/29/2024 1:30 PM CDT Height 166 cm (5' 5.35) 05/29/2024 1:30 PM CDT Body Mass Index 29.03 05/29/2024 1:30 PM CDT Plan of Treatment Upcoming Encounters Date Type Department Care Team (Late st Contact Info) Description 08/12/2024 1:30 PM CDT Office Visit Department of Family Medicine, [facility], in [place], [place] [address] [phone] Annemarie Montiel M.D. [address] [phone] 08/27/2024 9:45 AM CDT Procedure visit Department of Neurology in [place], [place] [address] [address] Hipolito Babin M.D. [address] [address] Scheduled Procedures Name Priority Associated Diagnoses Date/Ti me LIFT THIGH Excessive And Redundant Skin And Subcutaneous Tissue Medical Devices Implanted Type Area Grinder And Plater Device Identifier Shelf Expiration Date Model / Serial / Lot Conversions - Default Historical Implant Device Implanted:12/2014 (Quantity not on file) Hardware e.g. pins/screws /rods Mouth Description:Body Location - Mouth. both sides of jaw. Device Status Text - Hardware. Clp Hrzn Ti 6 Clp Sheng - [id number] Implanted:Qty: 1 on 12/16/2019 by Clare Deleon M.B.B.S. at [facility] Hardware e.g. pins/screws /rods N/A: [employer] [id number] 03/25/2024 [id number] / / [id number] Clp Hrzn Ti 6 Clp Red - [id number] Implanted:Qty: 1 on 12/16/2019 by Clare Deleon M.B.B.S. at [facility] Hardware e.g. pins/screws /rods N/A: [employer]dom[employer] [id number] 03/25/2024 [id number] / / [id number] Procedures Procedure Name Priority Date/Time Associated [...] 8.0 07/15/2024 2:49 PM CDT FB60 Specific [place] >=1.030 1.001 - 1.035 07/15/2024 2:49 PM CDT FB60 Urobilinogen 1.0 0.2 - 1.0 mg/dL 07/15/2024 2:49 PM CDT FB60 Urine (Urine, Midstream) 07/15/2024 2:40 PM CDT 07/15/2024 2:43 PM CDT Annemarie Montiel M.D. LAB URINE ORDERAB LES [facility] [address] [place] [address], [facility] FB60 [facility] [place] [address] * Microscopic Manual (07/15/2024 2:40 PM CDT) [...] Annemarie Montiel M.D. LAB URINE ORDERAB LES [facility] [address] [facility] [place] [address], [facility] FB60 [facility] in [place] [address] [facility] [place] [address] * (ABNORMAL) Bacterial Culture, Aerobic + Susceptibility, [...] GENERAL ORDERABLES [facility] [address] [place] [address], [place] MKTO [facility] in [place] [address] [place] [address] * HIV-1/-2 Ag and Ab Screen, Plasma (06/06/2024 11:13 AM CDT) [facility] HIV Ag/Ab Screen, P Negative Negative [...] - BLOOD ORDERABLES [facility] [address] [place] [address], [facility] in [address] [address] * Syphilis Total Antibody with Reflex, Serum (06/06/2024 11:13 AM CDT) Syphilis Total Ab w/ Reflex Nonreactive Nonreactive 06/08/2024 10:42 AM CDT [facility] Comment: No serologic evidence of infection with T. pallidum (syphilis). ??Repeat testing may be considered in patients with suspected acute or primary syphilis in 2-4 weeks. For additional information on interpretation of the syphilis reverse algorithm and results, see: [email or web address] memorial [email or web address] it-[email or web address] Blood (Blood, Venous) 06/06/2024 11:13 AM CDT 06/07/2024 3:49 PM CDT Annemarie Montiel M.D. LAB BLOOD ADD-ON [facility] [address] [place] [address], [facility] in [address] [address] * HCV Ab Scrn w/Reflex to HCV PCR, Serum (06/06/2024 11:13 AM CDT) Pathologist [facility] HCV Ab Screen, S Negative Negative 06/06/2024 2:37 PM CDT MKTO Blood (Blood, Venous) 06/06/2024 11:13 AM CDT 06/06/2024 1:53 PM CDT Narrative [facility] - 06/06/2024 2:37 PM CDT Specimen Information: Specimen ID: [id number] Specimen Type: Blood Specimen Collection Start Date: 06/06/2024 11:13 AM Specimen Received Date: 06/06/2024 ??1:53 PM Specimen ID: [id number] Specimen Type: Blood Specimen Collection Start Date: 06/06/2024 11:13 AM Specimen Received Date: 06/06/2024 ??2:38 PM Annemarie Montiel M.D. LAB MICROBIOLOGY - BLOOD ORDERABLES [facility] [address] [place] [address], [facility] MKTO [facility] in [place] [address] [place] [address] * Chlamydia / Gonorrhoeae Amplified RNA (06/06/2024 [...] Montiel M.D. LAB MICROBIOLOGY - GENERAL ORDERABLES [facility] [address] [place] [address], [facility] MKTO [address] [facility] [address] [place] [address] * Lipid Panel (06/13/2023 5:29 PM CDT) [...] BLOOD ADD-ON [facility] [address] [place] [address], [facility] OWAT [facility] in [place] [address] [place] [address] from Last 3 Months or Most Recently Relevant to Health Maintenance Advance Directives For more information, please contact: [phone] * Full Code (Latest Code Status on File) Date Activated Date Inactivated Comments 12/16/2019 3:26 PM 12/17/2019 12:11 PM Question Answer Comments Full Code: Discussed Care Teams Retail Loss Prevention Officer Relationship Specialty Start Date End Date Annemarie Montiel M.D. [address] [place] [address] PCP - General 04/19/17
--- OUTSIDE RECORDS SUMMARY | 2024-08-11 13:29 | XMS_ITS | Encounter Summary ---
Author Organization [facility] Address [address] [place] [address] Care Team Providers Care Platform Mill Supervisor Name Role Phone Annemarie Montiel M.D. Primary Care Provider +1 -[phone] Reason for Visit * Reason Onset Date Comments RX APPROVAL 06/03/2024 UBRELVY 100MG TA B Encounter Details Date Type Department Care Team (Latest Contact Info) Description 06/03/2024 Clinical Communication Pharmacy Prior [facility] RO [phone] Sophia Roberts RX APPROVAL (UBRELVY 100MG TAB) Social History Tobacco Use Types Packs/Day Years Used Date Smoking Tobacco: Never Smokeless Tobacco: Never Alcohol Use Standard Drinks/Week Comments No 0 (1 standard drink = 0.6 oz pur e alcohol) [facility] Utilities Answer Date Recorded In the past 12 months has e electric, gas, oil, or water [email or web address] threatened to shut off services in your [...] Answer Date Recorded PHQ-2 Score 6 04/15/2024 [facility] - Occupational Stress Questionnaire Answer Date Recorded [...] Sex Assigned at Female 10/16/2018 10:53 AM COLOR CONSULTANT Gender Identity Female 10/16/2018 10:53 AM COLOR CONSULTANT Sexual Orientation Straight 06/27/2023 1: 38 PM CDT documented as of this encounter Miscellaneous Notes * Telephone Encounter - Sophia Roberts - 06/03/2024 10:59 AM CDT Pharmaceutical prior authorization has been approved for UBRELVY 100MG TAB If you have any follow-up questions, please send an [employer] in [employer] message to P [facility] POOL. documented in this encounter Plan of Treatment Upcoming Encounters Date Type Department Care Team (Late st Contact Info) Description 08/12/2024 1:30 PM CDT Office Visit Department of Family Medicine, [facility], in [place], [place] [address] [place] [address] Annemarie Montiel M.D. [address] [place] [phone] 08/27/2024 9:45 AM CDT Procedure visit Department of Neurology in [place], [place] [address], [place] [address] Hipolito Babin M.D. [address] [place] [address] [place] [phone] Scheduled Procedures Name Priority Associated Diagnoses Date/Ti me LIFT THIGH Excessive And Redundant Skin And Subcutaneous Tissue documented as of this encounter Visit Diagnoses Not on filedocumented in this encounter Additional Health Concerns Assessment Noted Time PHQ-9 Depression Total Score: 20 024 12:51 PM CDT documented as of this encounter Care Teams Platform Mill Supervisor Relationship Specialty Start Date End Date Annemarie Montiel M.D. [address] [place] [phone] PCP - General 04/19/17 documented as of this encounter
--- OUTSIDE RECORDS SUMMARY | 2024-08-11 13:29 | XMS_ITS | Encounter Summary ---
Author Organization [facility] Address [address] [place] [address] Care Team Providers Care Pocket Setter Name Role Phone Annemarie Montiel M.D. Primary Care Provider +1 -[phone] Reason for Visit * Reason Comments Care Coordination Referral: Psychiatry Encounter Details Date Type Department Care Team (Latest Contact Info) Description 05/26/2024 Patient Outreach Department of Family Medicine, [facility], in [place], [place] [address] [address] Fouzia Saldana R.N. [address] [address] Care Coordination (Referral: Psychiatry) Social History Tobacco Use Types Packs/Day Years Used Date Smoking Tobacco: Never Smokeless Tobacco: Never Alcohol Use Standard Drinks/Week Comments No 0 (1 standard drink = 0.6 oz pur e alcohol) [facility] Utilities Answer Date Recorded In the past 12 months has [facility] [employer], gas, oil, or water [employer] threatened to shut off services in your [...] with friends or relatives? Never 03/29/2020 Attends Pentecostalism Services Not on file 03/29 Active Member [...] Answer Date Recorded PHQ-2 Score 6 04/15/2024 [facility] [place] of Occupat ional Health - Occupational Stress [...] Sex Assigned at Female 10/16/2018 10:53 AM TUBING DRIER Gender Identity Female 10/16/2018 10:53 AM TUBING DRIER Sexual Orientation Straight 06/27/2023 1: 38 PM CDT documented as of this encounter Plan of Treatment Upcoming Encounters Date Type Department Care Team (Late st Contact Info) Description 08/12/2024 1:30 PM CDT Office Visit Department of Family Medicine, [facility], in [place], [place] [address] [address] Annemarie Montiel M.D. [address] [address] 08/27/2024 9:45 AM CDT Procedure visit Department of Neurology in [place], [place] [address], [place] [address] Hipolito Babin M.D. [address] [address] Scheduled Procedures Name Priority Associated Diagnoses Date/Ti me LIFT THIGH Excessive And Redundant Skin And Subcutaneous Tissue documented as of this encounter Visit Diagnoses Not on filedocumented in this encounter Additional Health Concerns Assessment Noted Time PHQ-9 Depression Total Score: 20 024 12:51 PM CDT documented as of this encounter Care Teams Pocket Setter Relationship Specialty Start Date End Date Annemarie Montiel M.D. [address] [place] [address] PCP - General 04/19/17 documented as of this encounter
--- OUTSIDE RECORDS SUMMARY | 2024-08-11 13:29 | XMS_ITS | Encounter Summary ---
Author Organization [facility] Address [address] [place] [address] Care Team Providers Care Manager Club Name Role Phone Annemarie Montiel M.D. Primary Care Provider +1 -[phone] Encounter Details Date Type Department Care Team (Late st Contact Info) Description 06/06/2024 10:50 AM CDT - 06/06/2024 11:59 PM CDT Hospital Encounter Department of Laboratory Medicine in [place], [place] [address] [address] Annemarie Montiel M.D. [address] [address] Exposure Sexually Transmitted Disease Discharge Disposition: Home or Self Care Social History Tobacco Use Types Packs/Day Years Used Date Smoking Tobacco: Never Smokeless Tobacco: Never Alcohol Use Standard Drinks/Week Comments No 0 (1 standard drink = 0.6 oz pur e alcohol) [facility] Utilities Answer Date Recorded In the past 12 months has e [employer] gas, oil, or water [employer] threatened to shut off services in your [...] with friends or relatives? Never 03/29/2020 Attends Episcopalian Services Not on file 03/29 Active Member [...] Answer Date Recorded PHQ-2 Score 6 04/15/2024 [facility] of Occupat ional Health - Occupational [...] Sex Assigned at Female 10/16/2018 10:53 AM CONVEYOR OPERATOR Gender Identity Female 10/16/2018 10:53 AM CONVEYOR OPERATOR Sexual Orientation Straight 06/27/2023 1: 38 [...] by mouth daily. 180 tablet 1 03/18/2024 mlvrzywjgene-Gx-nfmm -minerals (MULTIPLE VITAMIN, WOMENS) tablet Take 1 [...] CDT Office Visit Department of Family Medicine, [facility], in [place], [place] [address] [address] Annemarie Montiel M.D. [address] [place] [address] 08/27/2024 9:45 AM CDT Procedure visit Department of Neurology in [place], [place] [address], [place] [address] Hipolito Babin M.D. [address] [place] [address] Scheduled Procedures Name Priority Associated [...] reverse algorithm and results, see: [email or web address] medical [email or web address] [email or web address] [email or web address]_[email or web address] Blood (Blood, Venous) 06/06/2024 11:13 AM CDT 06/07/2024 3:49 PM CDT Annemarie Montiel M.D. LAB BLOOD ADD-ON Performing Organization Address City/[facility]/ZIP Co de Phone Number [facility] [address] [place] [address], [facility] in [place] [address] [place] [address] * HCV Ab Scrn w/Reflex to HCV PCR, Serum (06/06/2024 11:13 AM CDT) HCV Ab Screen, S Negative Negative 06/06/2024 2:37 PM CDT [facility] Blood (Blood, Venous) 06/06/2024 11:13 AM CDT 06/06/2024 1:53 PM CDT Narrative [facility] - 06/06/2024 2:37 PM CDT Specimen Information: Specimen ID: [id number] Specimen Type: Blood Specimen Collection Start Date: 06/06/2024 11:13 AM Specimen Received Date: 06/06/2024 ??1:53 PM Specimen ID: [id number] Specimen Type: Blood Specimen Collection Start Date: 06/06/2024 11:13 AM Specimen Received Date: 06/06/2024 ??2:38 PM Annemarie Montiel M.D. LAB MICROBIOLOGY - BLOOD ORDERABLES [facility] [address] [place] [address], [facility] MKTO [facility] in [place] [address] [place] [address] * HIV-1/-2 Ag and Ab Screen, Plasma (06/06/2024 11:13 AM CDT) HIV Ag/Ab Screen, P Negative Negative 06/08/2024 10:48 AM CDT [facility] Comment: Negative result does not rule out [...] Montiel M.D. LAB MICROBIOLOGY - BLOOD ORDERABLES [facility] [address] [address], [facility] in [address] [address] documented in this encounter Visit Diagnoses Diagnosis Exposure Sexually Transmitted Disease documented in this encounter Additional Health Concerns Assessment Noted Time PHQ-9 Depression Total Score: 20 024 12:51 PM CDT documented as of this encounter Care Teams Manager Club Relationship Specialty Start Date End Date Annemarie Montiel M.D. [address] [address] PCP - General 04/19/17 documented as of this encounter
--- OUTSIDE RECORDS SUMMARY | 2024-08-11 13:29 | XMS_ITS | Encounter Summary ---
Author Organization [facility] Address [address] [place] [address] Care Team Providers Care Telecommunication Equipment Repairer Name Role Phone Annemarie Montiel M.D. Primary Care Provider +1 [phone] Reason for Referral * Outpatient (Routine) - Authorized Specialty Diagnoses / Procedures Referred By Contac t Referred To Contact Diagnoses Migraine Headache Chronic Migraine Procedures Botox for Chronic Migraine CA CHEMODENERV FACIAL TRIGEM NIDHI CA INJECTION,ONABOTULINUMTOXINA Hipolito Babin M.D. [address], [place] [address] [facility] Region Referral ID Status Reason Start Date Expiration Date V isits Requested Visits Authorized [id number] Authorized 08/27/2024 02/22/2025 4 3 * Medication Prior Authorization - Authorized Specialty Diagnoses / Procedures Referred By Contac t Referred To Contact Hipolito Babin M.D. [address], [place] [address] Referral ID Status Reason Start Date Expiration Date V isits Requested Visits Authorized [id number] Authorized 03/01/2024 05/30/2025 1 1 Reason for Visit * Outpatient (Routine) - Closed Specialty Diagnoses / Procedures Referred By Contac t Referred To Contact Neurology Diagnoses Migraine Headache HorstmanCuca APRN, C.N.PRodrigo, D.N.PRodrigo [address] [place] [address] [facility] Region Referral ID Status Reason Start Date Expiration Date V isits Requested Visits Authorized [id number] Closed Specialty Services Required 03/13/2024 09/12/2025 1 1 Encounter Details Date Type Department Care Team (Latest Contact Info) Description 05/29/2024 1:30 PM CDT Comprehensive Visit Department of Neurology in [place], [place] [address] [address] Hipolito Babin M.D. [address] [address] Chronic Migraine (Primary Dx); Migraine Headache Social History Tobacco Use Types Packs/Day Years Used Date Smoking Tobacco: Never Smokeless Tobacco: Never Tobacco Cessation:Counseling Given: Not Answered Alcohol Use Standard Drinks/Week Comments No 0 (1 standard drink = 0.6 oz pur e alcohol) [facility] Utilities Answer Date Recorded In the past 12 months has e [employer], gas, oil, or water [employer] threatened to shut off services in your [...] Answer Date Recorded PHQ-2 Score 6 04/15/2024 [facility] - Occupational Stress Questionnaire Answer [...] Sex Assigned at Female 10/16/2018 10:53 AM BLADE CHANGER Gender Identity Female 10/16/2018 10:53 AM BLADE CHANGER Sexual Orientation Straight 06/27/2023 1: 38 PM [...] history of migraine headaches who returns to [facility] Neurology to follow up in that regard. Please recall she was previously seen by Nakita Winter, M.P.H., in [place], having achieved goodrelief of her migraine headaches [...] antigravity strength all extremities with coordination with lqpzur-zxzw-cxlxee testing intact without dysmetria. Reflexes normal and [...] CDT Office Visit Department of Family Medicine, [facility], in [place], [place] [address] [address] Annemarie Montiel M.D. [address] [place] [address] 08/27/2024 9:45 AM CDT Procedure visit Department of Neurology in [place], [place] [address] [place] [address] Hipolito Babin M.D. [address] [address] Scheduled Orders Name Type Priority [...] documented as of this encounter Care Teams Telecommunication Equipment Repairer Relationship Specialty Start Date End Date Annemarie Montiel M.D. [address] [address] PCP - General 04/19/17 documented as of this encounter
--- OUTSIDE RECORDS SUMMARY | 2024-08-11 13:29 | XMS_ITS | Encounter Summary ---
Author Organization [facility] Address [address] [place] [address] Care Team Providers Care Kitchenhand Name Role Phone Annemarie Montiel M.D. Primary Care Provider +1 -[phone] Encounter Details Date Type Department Care Team (Late st Contact Info) Description 05/30/2024 Clinical Communication Department of Neurology in [place], [place] [address] [address] Hipolito Babin M.D. [address] [address] Social History Tobacco Use Types Packs/Day Years Used Date Smoking Tobacco: Never Smokeless Tobacco: Never Alcohol Use Standard Drinks/Week Comments No 0 (1 standard drink = 0.6 oz pur e alcohol) [facility] Utilities Answer Date Recorded In the past [address] [facility] [employer], gas, oil, or water [employer] threatened to shut off services in your [...] with friends or relatives? Never 03/29/2020 Attends Zoroastrianism Services Not on file 03/29 Active Member [...] 04/15/2024 [facility] of Occupat ional Health - Occupational [...] Sex Assigned at Female 10/16/2018 10:53 AM COMMUNITY RELATIONS ASSISTANT Gender Identity Female 10/16/2018 10:53 AM COMMUNITY RELATIONS ASSISTANT Sexual Orientation Straight 06/27/2023 1: 38 PM CDT documented as of this encounter Plan of Treatment Upcoming Encounters Date Type Department Care Team (Late st Contact Info) Description 08/12/2024 1:30 PM CDT Office Visit Department of Family Medicine, [facility], in [place], [place] [address] [place] [address] Annemarie Montiel M.D. [address] [place] [address] 08/27/2024 9:45 AM CDT Procedure visit Department of Neurology in [place], [place] [address], [place] [address] Hipolito Babin M.D. [address] [place] [phone] Scheduled Procedures Name Priority Associated Diagnoses Date/Ti me LIFT THIGH Excessive And Redundant Skin And Subcutaneous Tissue documented as of this encounter Visit Diagnoses Not on filedocumented in this encounter Additional Health Concerns Assessment Noted Time PHQ-9 Depression Total Score: 024 12:51 PM CDT documented as of this encounter Care Teams Kitchenhand Relationship Specialty Start Date End Date Annemarie Montiel M.D. [address] [phone] PCP - General 04/19/17 documented as of this encounter
--- OUTSIDE RECORDS SUMMARY | 2024-08-11 13:29 | XMS_ITS | Encounter Summary ---
Author Organization [facility] Address [address] [place] [address] Care Team Providers Care Gospel Singer Name Role Phone Annemarie Montiel M.D. Primary Care Provider +1 -[phone] Reason for Visit * Reason Comments Care Coordination [facility] CC Follow Up Encounter Details Date Type Department Care Team (Latest Contact Info) Description 05/30/2024 Patient Outreach Department of Family Medicine, [facility], in [place], [place] [address] [address] Fouzia Saldana R.N. [address] [address] Care Coordination ([facility] CC Follow Up) Social History Tobacco Use Types Packs/Day Years Used Date Smoking Tobacco: Never Smokeless Tobacco: Never Alcohol Use Standard Drinks/Week Comments No 0 (1 standard drink = 0.6 oz pur e alcohol) [facility] Utilities Answer Date Recorded In the past 12 months has [facility] [employer], [employer], oil, or water [employer] threatened to shut off services in your [...] with friends or relatives? 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 - 05/30/2024 12:30 PM CDT SUBJECTIVE CHIEF COMPLAINT / REASON FOR CALL Care Coordination ([facility] CC Follow Up) Information Discussed Maria Alejandra [...] so they are currently working with an legal investigator. She is unsure where to find additional services or legal advice. Encouraged her to speak with the high school social studies tutor at [facility]. Reviewed [...] of Family Medicine, [facility], in [place], [place] [address] [phone] Annemarie Montiel M.D. [address] [phone] 08/27/2024 9:45 AM CDT Procedure visit Department of Neurology in [place], [place] [address] [phone] Hipolito Babin M.D. [address] [phone] Scheduled Procedures Name Priority Associated Diagnoses Date/Ti me LIFT THIGH Excessive And Redundant Skin And Subcutaneous Tissue documented as of this encounter Visit Diagnoses Not on filedocumented in this encounter Additional Health Concerns Assessment Noted Time PHQ-9 Depression Total Score: 20 04/15/ 024 12:51 PM CDT documented as of this encounter Care Teams Gospel Singer Relationship Specialty Start Date End Date Annemarie Montiel M.D. [address] [phone] PCP - General 04/19/17 documented as of this encounter
--- OUTSIDE RECORDS SUMMARY | 2024-08-11 13:29 | XMS_ITS | Encounter Summary ---
Author Organization [facility] Address [address] [place] [address] Care Team Providers Care Seating Captain Name Role Phone Annemarie Montiel M.D. Primary Care Provider +1 [phone] Encounter Details Date Type Department Care Team (Late st Contact Info) Description 05/01/2024 Orders Only Department of Family Medicine, [facility], in [place], [place] [address] [phone] Annemarie Montiel M.D. [address] [address] Social History Tobacco Use Types Packs/Day Years Used Date Smoking Tobacco: Never Smokeless Tobacco: Never Alcohol Use Standard Drinks/Week Comments No 0 (1 standard drink = 0.6 oz pur e alcohol) [facility] Utilities Answer Date Recorded In the past 12 months has [facility] [employer], [employer], oil, or water [employer] threatened to shut off services in your [...] with friends or relatives? Never 03/29/2020 Attends Bahai Services Not on file 03/29 Active Member [...] Sex Assigned at Female 10/16/2018 10:53 AM GREETER Gender Identity Female 10/16/2018 10:53 AM GREETER Sexual Orientation Straight 06/27/2023 1: 38 PM CDT documented as of this encounter Plan of Treatment Upcoming Encounters Date Type Department Care Team (Late st Contact Info) Description 08/12/2024 1:30 PM CDT Office Visit Department of Family Medicine, [facility], in [place], [place] [address] [place] [phone] Annemarie Montiel M.D. [address] [place] [phone] 08/27/2024 9:45 AM CDT Procedure visit Department of Neurology in [place], [place] 2[address] [place] [address] Hipolito Babin M.D. [address] [place] [phone] Scheduled Procedures Name Priority Associated Diagnoses Date/Ti me LIFT THIGH Excessive And Redundant Skin And Subcutaneous Tissue documented as of this encounter Visit Diagnoses Not on filedocumented in this encounter Additional Health Concerns Assessment Noted Time PHQ-9 Depression Total Score: 20 024 12:51 PM CDT documented as of this encounter Care Teams Seating Captain Relationship Specialty Start Date End Date Annemarie Montiel M.D. [address] [place] [address] PCP - General 04/19/17 documented as of this encounter
--- OUTSIDE RECORDS SUMMARY | 2024-08-11 13:29 | XMS_ITS | Encounter Summary ---
Author Organization [facility] Address [address] [place] [address] Care Team Providers Care Vision Therapist Name Role Phone Annemarie Montiel M.D. Primary Care Provider +1 [phone] Reason for Visit * Reason Comments Med Refill Encounter Details Date Type Department Care Team (Late st Contact Info) Description 06/02/2024 Refill Department of Family Medicine, [facility], in [place], [place] [address] [address] Annemarie Montiel M.D. [address] [address] Med Refill Social History Tobacco Use Types Packs/Day Years Used Date Smoking Tobacco: Never Smokeless Tobacco: Never Alcohol Use Standard Drinks/Week Comments No 0 (1 standard drink = 0.6 oz pur e alcohol) [facility] Utilities Answer Date Recorded In the past 12 months has [employer], [employer], or water [employer] threatened to shut off services in your [...] with friends or relatives? Never 03/29/2020 Attends Synagogue Services Not on file 03/29 Active Member [...] Answer Date Recorded PHQ-2 Score 6 04/15/2024 [facility] of Occupat ional Health - Occupational Stress [...] Sex Assigned at Female 10/16/2018 10:53 AM ACQUISITION ANALYST Gender Identity Female 10/16/2018 10:53 AM ACQUISITION ANALYST Sexual Orientation Straight 06/27/2023 1: 38 PM CDT documented as of this encounter Plan of Treatment Upcoming Encounters Date Type Department Care Team (Late st Contact Info) Description 08/12/2024 1:30 PM CDT Office Visit Department of Family Medicine, [facility], in [place], [place] [address] [place] [phone] Annemarie Montiel M.D. [address] [address] 08/27/2024 9:45 AM CDT Procedure visit Department of Neurology in [place], [place] [address], [place] [address] Hipolito Babin M.D. [address] [place] [phone] Scheduled Procedures Name Priority Associated Diagnoses Date/Ti me LIFT THIGH Excessive And Redundant Skin And Subcutaneous Tissue documented as of this encounter Visit Diagnoses Not on filedocumented in this encounter Additional Health Concerns Assessment Noted Time PHQ-9 Depression Total Score: 20 024 12:51 PM CDT documented as of this encounter Care Teams Vision Therapist Relationship Specialty Start Date End Date Annemarie Montiel M.D. [address] [phone] PCP - General 04/19/17 documented as of this encounter
--- OUTSIDE RECORDS SUMMARY | 2024-08-11 13:29 | XMS_ITS | Encounter Summary ---
Author Organization [facility] Address [address] [place] [address] Care Team Providers Care Military Analyst Name Role Phone Annemarie Montiel M.D. Primary Care Provider +1 -[phone] Encounter Details Date Type Department Care Team (Late st Contact Info) Description 06/06/2024 10:50 AM CDT Hospital Encounter Department of Laboratory Medicine in [place], [place] [address] [address] Annemarie Montiel M.D. [address] [address] Exposure Sexually Transmitted Disease Discharge Disposition: Home or Self Care Social History Tobacco Use Types Packs/Day Years Used Date Smoking Tobacco: Never Smokeless Tobacco: Never Alcohol Use Standard Drinks/Week Comments No 0 (1 standard drink = 0.6 oz pur e alcohol) [facility] Utilities Answer Date Recorded In the past 12 months has [facility] [employer], oil, or water [employer] threatened to shut off services in your [...] with friends or relatives? Never 03/29/2020 Attends Gnosticist Services Not on file 03/29 Active Member [...] Answer Date Recorded PHQ-2 Score 6 04/15/2024 [facility] [place] of Occupat ional Health - Occupational Stress [...] Sex Assigned at Female 10/16/2018 10:53 AM SUPPLY CHAIN CONSULTANT Gender Identity Female 10/16/2018 10:53 AM SUPPLY CHAIN CONSULTANT Sexual Orientation Straight 06/27/2023 1: 38 [...] by mouth daily. 180 tablet 1 03/18/2024 cvfbxeafdemz-Oh-zpph -minerals (MULTIPLE VITAMIN, WOMENS) tablet Take 1 [...] Department of Family Medicine, [facility], in [place], [place] [address] [place] [address] Annemarie Montiel M.D. [address] [place] [address] 08/27/2024 9:45 AM CDT Procedure visit Department of Neurology in [place], [place] [address] [place] [address] Hipolito Babin M.D. [address] [place] [address] Scheduled Procedures Name Priority Associated [...] - GENERAL ORDERABLES [facility] [address] [place] [address], [facility] MKTO [facility] [address] documented in this encounter Visit Diagnoses Diagnosis Exposure Sexually Transmitted Disease documented in this encounter Additional Health Concerns Assessment Noted Time PHQ-9 Depression Total Score: 20 024 12:51 PM CDT documented as of this encounter Care Teams Military Analyst Relationship Specialty Start Date End Date Annemarie Montiel M.D. [address] [place] [address] PCP - General 04/19/17 documented as of this encounter
--- OUTSIDE RECORDS SUMMARY | 2024-08-11 13:29 | XMS_ITS | Encounter Summary ---
Author Organization [facility] Address [address] [place] [address] Care Team Providers Care Clinical Project Coordinator Name Role Phone Annemarie Montiel M.D. Primary Care Provider +1 -[phone] Reason for Visit * Reason Comments Care Coordination [facility] CC Attempt #1 an d Mailed BRIANDA Encounter Details Date Type Department Care Team (Latest Contact Info) Description 06/05/2024 Patient Outreach Department of Family Medicine, [facility], in [place], [place] [address] [address] Fouzia Saldana R.N. [address] [address] Care Coordination ([facility] CC Attempt #1 and Mailed BRIANDA) Social History Tobacco Use Types Packs/Day Years Used Date Smoking Tobacco: Never Smokeless Tobacco: Never Alcohol Use Standard Drinks/Week Comments No 0 (1 standard drink = 0.6 oz pur e alcohol) [facility] Utilities Answer Date Recorded In the past 12 months has [employer], gas, oil, or water [employer] threatened to shut off services in your [...] with friends or relatives? Never 03/29/2020 Attends Jehovah'S Witness Services Not on file 03/29 Active Member [...] Answer Date Recorded PHQ-2 Score 6 04/15/2024 [facility] of Occupat ional Health - Occupational Stress [...] Sex Assigned at Female 10/16/2018 10:53 AM TRUST MANAGER Gender Identity Female 10/16/2018 10:53 AM TRUST MANAGER Sexual Orientation Straight 06/27/2023 1: 38 PM CDT documented as of this encounter Plan of Treatment Upcoming Encounters Date Type Department Care Team (Late st Contact Info) Description 08/12/2024 1:30 PM CDT Office Visit Department of Family Medicine, [facility], in [place], [place] [address] [place] [address] Annemarie Montiel M.D. [address], [place] [address] 08/27/2024 9:45 AM CDT Procedure visit Department of Neurology in [place], [place] [address], [place] [address] Hipolito Babin M.D. [address] [place] [address] Scheduled Procedures Name Priority Associated Diagnoses Date/Ti me LIFT THIGH Excessive And Redundant Skin And Subcutaneous Tissue documented as of this encounter Visit Diagnoses Not on filedocumented in this encounter Additional Health Concerns Assessment Noted Time PHQ-9 Depression Total Score: 20 024 12:51 PM CDT documented as of this encounter Care Teams Clinical Project Coordinator Relationship Specialty Start Date End Date Annemarie Montiel M.D. [address], [place] [phone] PCP - General 04/19/17 documented as of this encounter
--- OUTSIDE RECORDS SUMMARY | 2024-08-11 13:29 | XMS_ITS | Encounter Summary ---
Author Organization [facility] Address [address] [place] [address] Care Team Providers Care Rating Examiner Name Role Phone Annemarie Montiel M.D. Primary Care Provider +1 -[phone] Reason for Visit * Reason Onset Date Comments STI Screening 06/05/2024 Encounter Details Date Type Department Care Team (Late st Contact Info) Description 06/05/2024 Nurse Triage Department of Family Medicine, [facility], in [place], [place] [address] [phone] Tammy Wei, RRodrigoNRodrigo [address] [place] [address] STI Screening Social History Tobacco Use Types Packs/Day Years Used Date Smoking Tobacco: Never Smokeless Tobacco: Never Alcohol Use Standard Drinks/Week Comments No 0 (1 standard drink = 0.6 oz pur e alcohol) [facility] Utilities Answer Date Recorded In the past 12 months has [facility] [employer], gas, oil, or water [employer] threatened to shut off services in your [...] with friends or relatives? Never 03/29/2020 Attends Yazdanism Services Not on file 03/29 Active Member [...] Answer Date Recorded PHQ-2 Score 6 04/15/2024 [facility] of Occupat ional Health - [...] Sex Assigned at Female 10/16/2018 10:53 AM HAND STAPLER Gender Identity Female 10/16/2018 10:53 AM HAND STAPLER Sexual Orientation Straight 06/27/2023 1: 38 PM [...] CDT Office Visit Department of Family Medicine, [facility], in [place], [place] [address], [place] [address] Annemarie Montiel M.D. [address] [place] [address] 08/27/2024 9:45 AM CDT Procedure visit Department of Neurology in [place], [place] [address] [place] [address] Hipolito Babin M.D. [address] [place] [address] Scheduled Procedures Name Priority Associated [...] the syphilis reverse algorithm and results, see: [email or web address] Blood (Blood, Venous) 06/06/2024 11:13 AM CDT 06/07/2024 3:49 PM CDT Annemarie Montiel M.D. LAB BLOOD ADD-ON [facility] [address] [place] [address], [facility] in [address] [address] * HCV Ab Scrn w/Reflex to HCV PCR, Serum (06/06/2024 11:13 AM CDT) HCV Ab Screen, S Negative Negative 06/06/2024 2:37 PM CDT MKTO Blood (Blood, Venous) 06/06/2024 11:13 AM CDT 06/06/2024 1:53 PM CDT Narrative [facility] - 06/06/2024 2:37 PM CDT Specimen Information: Specimen ID: [id number] Specimen Type: Blood Specimen Collection Start Date: 06/06/2024 11:13 AM Specimen Received Date: 06/06/2024 ??1:53 PM Specimen ID: [id number] Specimen Type: Blood Specimen Collection Start Date: 06/06/2024 11:13 AM Specimen Received Date: 06/06/2024 ??2:38 PM Annemarie Montiel M.D. LAB MICROBIOLOGY - BLOOD ORDERABLES [facility] [address] [place] [address], [facility] [place] [address] [place] [address] * HIV-1/-2 Ag and Ab Screen, Plasma [...] MICROBIOLOGY - BLOOD ORDERABLES Performing Organization Address City/State/[facility] Co de Phone Number [facility] [address] [place] [address], [facility] in [address] [address] * Chlamydia / Gonorrhoeae Amplified RNA (06/06/2024 [...] Montiel M.D. LAB MICROBIOLOGY - GENERAL ORDERABLES [facility] [address] [place] [address], [facility] MKTO [address] [place] [address] documented in this encounter Visit Diagnoses Diagnosis Exposure Sexually Transmitted Disease- Primary Exposure Sexually Transmitted Disease documented in this encounter Additional Health Concerns Assessment Noted Time PHQ-9 Depression Total Score: 20 024 12:51 PM CDT documented as of this encounter Care Teams Rating Examiner Relationship Specialty Start Date End Date Annemarie Montiel M.D. [address] [phone] PCP - General 04/19/17 documented as of this encounter
--- OUTSIDE RECORDS SUMMARY | 2024-08-11 13:29 | XMS_ITS | Encounter Summary ---
Author Organization [facility] Address [address] [place] [address] Care Team Providers Care Tube Cutter Operator Name Role Phone Annemarie Montiel M.D. Primary Care Provider +1 -[phone] Reason for Visit * Reason Comments Care Coordination [facility] CC Follow Up Encounter Details Date Type Department Care Team (Latest Contact Info) Description 05/16/2024 Patient Outreach Department of Family Medicine, [facility], in [place], [place] [address] [address] Fouzia Saldana R.N. [address] [address] Care Coordination ([facility] CC Follow Up) Social History Tobacco Use Types Packs/Day Years Used Date Smoking Tobacco: Never Smokeless Tobacco: Never Alcohol Use Standard Drinks/Week Comments No 0 (1 standard drink = 0.6 oz pur e alcohol) [facility] Utilities Answer Date Recorded In the past 12 months has [facility] [employer], [employer], oil, or water [employer] threatened to shut off services in your [...] Answer Date Recorded PHQ-2 Score 6 04/15/2024 [facility] [place] of Occupat ional Health - Occupational Stress [...] Sex Assigned at Female 10/16/2018 10:53 AM THREE DIMENSIONAL ART 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 - 05/19/2024 3:48 PM CDT SUBJECTIVE CHIEF COMPLAINT / REASON FOR CALL Care Coordination ([facility] CC Follow Up) Information Discussed Discussed Dr. Jurado recommendation to schedule with psychiatry. Maria Alejandra is currently seeing a therapist at [facility]. She is open to a psychiatry prescriber at [facility]. Contacted [facility] and they are not accepting outside referrals. Left voicemail with [facility] intake regarding referral as patient is currently [...] health and narcolepsy. She is working in [employer] and feels very tired during the drive. 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 Maria Alejandra was denied SSDI. Maria Alejandra was hopeful she was going to begin working at [employer]. When Maria Alejandra is at her boyfriend's house, she feels peace but when at home has high anxiety. Her daughter went into labor. Maria Alejandra has been denied for [facility] mental health social and human services assistant. son is connected with [facility]. She has tried to have placed into residential treatmen t, but has been denied. Maria Alejandra is seeing a therapist through [facility] [email or web address] [place]. Inclusion Criteria: 01/07/2024 9:35 AM 04/15/2024 12:50 [...] 05/26/2024 4:52 PM CDT Coordinated care with [facility]. Appointment with Basilia Hargrove today at 3:[address] Bhagat on June 24 at 1 pm. documented in this encounter Plan of Treatment Upcoming Encounters Date Type Department Care Team (Late st Contact Info) Description 08/12/2024 1:30 PM CDT Office Visit Department of Family Medicine, [facility], in [place], [place] [address] [address] Annemarie Montiel M.D. [address] [address] 08/27/2024 9:45 AM CDT Procedure visit Department of Neurology in [place], [place] [address] [address] Hipolito Babin M.D. [address] [phone] Scheduled Procedures Name Priority Associated Diagnoses Date/Ti me LIFT THIGH Excessive And Redundant Skin And Subcutaneous Tissue documented as of this encounter Visit Diagnoses Not on filedocumented in this encounter Additional Health Concerns Assessment Noted Time PHQ-9 Depression Total Score: 20 024 12:51 PM CDT documented as of this encounter Care Teams Tube Cutter Operator Relationship Specialty Start Date End Date Annemarie Montiel M.D. [address] [address] PCP - General 04/19/17 documented as of this encounter
[2024-08-11 23:55] LABS: Chlamydia DNA Amplified* NOT DETECTED (No Detected); GC DNA Amplified* NOT DETECTED (No Detected)
== END 2024-08-11 13:10 | disposition home or self-care (01) ==
PROVIDERS: Visit Provider Family Medicine
DX: Z72.51 High risk heterosexual behavior (principal); Z11.3 Encounter for screening for infections with a predominantly sexual mode of transmission; Z11.4 Encounter for screening for human immunodeficiency virus [HIV]
CPT/HCPCS: 86592; 86703; 87491; 87591